=== PATIENT | male | born 1955 | race Caucasian/White ===

== ENCOUNTER → 2018-01-03 07:06 | Outpatient (CLI) | payer MEDICARE, SELFPAY ==
[2017-01-20 11:53] VITALS: BMI 27.1
[2018-01-03 08:45] LABS: AST(SGOT) 20 U/L (15-37); Alanine Aminotransfer ALT/SGPT 32 U/L (16-61); Albumin, Serum 3.9 g/dL (3.2-5.0); Alkaline Phosphatase 104 U/L (45-117); Bilirubin, Direct 0.07 mg/dL (0.00-0.30); Cholesterol 126 mg/dL (200); Globulin 3.7 g/dL (2.2-4.2); High Density Lipoprotein 39 mg/dL; Protein, Total 7.6 g/dL (6.4-8.2); Triglycerides 116 mg/dL; Very Low Density Lipoprotein 23 mg/dL (5-40)
== END ==
PROVIDERS: Family Provider Family Medicine; PCP Family Medicine; Visit Provider Internal Medicine Cardiovascular Disease
DX: E78.5 Hyperlipidemia, unspecified (principal); Z79.899 Other long term (current) drug therapy
CPT/HCPCS: 36415; 80061; 80076

== ENCOUNTER 2018-03-14 22:07 | Emergency (ER) | payer MEDICARE, SELFPAY ==
[2017-01-20 11:53] VITALS: BMI 27.1
[2018-03-14 22:08] VITALS: BP 141/80; PULSE 104; RESP 15; TEMP 36.9; BMI 27.1
[2018-03-14] MEDS: Lidocaine/Epi/Tetracaine 50 ML 1 APPLIC TOPICAL (22:42)
--- NOTE | 2018-03-14 22:43 | ED.DCSUM_ITS ---
- ER Visit Summary Date of Service: 03/14/18 Chief Complaint: Scrotal bleeding History of Present Illness: The patient is a 63 M status post recent right hand surgery for aneurysm. Currently is anticoagulated on Plavix and aspirin. He states that he has prominent veins on the scrotum and today he was washing and because 1 of them to bleed. Denies any other complaints. He denies any recent nosebleeds, bloody stools or gross hematuria. He denies any pain. Physical Examination: Well-appearing older male. Vital signs stable afebrile. He is in no distress. HEENT exam unremarkable. Neck nontender. Lungs clear to auscultation bilaterally. Heart regular rhythm no murmur. Abdomen soft nontender normal bowel sounds no peritoneal signs. He is moving all 4 extremities. His right hand is bandaged from the forearm all the way to the fingers. He has normal cap refill. He had recent hand surgery. The undersurface of his scrotum on the left has a small varicose vein that is oozing bright red blood. There is no pulsatile bleeding. Otherwise there is no bruising. No tenderness. No masses. Neurologic exam is awake alert with no focal deficits. Test Results: None Emergency Department Course and Treatment: We will apply LET to the area of his scrotum that is bleeding. Repeat exam he is doing well. The bleeding is resolving. He will be discharged home with a dressing in place. Treatment Plan: [] Disposition: Discharge Impression: Scrotal bleeding from a varicose vein Anticoagulated on Plavix and aspirin Status post right hand vascular surgery This note was generated with [employer] dictation software. It may contain incorrect words, spelling, and punctuation that were not noted in review of the chart prior to signing ED Disposition - Plan for ED Patient: Disposition: Home or Assisted Living Chief Complaint: Abscess Referrals: Nadir Abdalla MD [Primary Care Provider] - As Needed Additional Instructions: If the bleeding restarts or ice to the area and direct pressure. If you are unable to get it to stop return to the ER.
--- NOTE | 2018-03-14 23:04 | ED.DEP ---
ED Disposition - Plan for ED Patient: Disposition: Home or Assisted Living Chief Complaint: Abscess Referrals: Nadir Abdalla MD [Primary Care Provider] - As Needed Additional Instructions: If the bleeding restarts or ice to the area and direct pressure. If you are unable to get it to stop return to the ER.
[2018-03-14 23:49] VITALS: BP 119/68; PULSE 106; RESP 18; O2SAT 98
== END 2018-03-14 23:50 | disposition home or self-care (01) ==
PROVIDERS: Emergency Provider Emergency Medicine; Family Provider Family Medicine; PCP Family Medicine
DX: I86.1 Scrotal varices (principal); Z98.890 Other specified postprocedural states; Z79.82 Long term (current) use of aspirin; Z79.02 Long term (current) use of antithrombotics/antiplatelets; Z79.899 Other long term (current) drug therapy
CPT/HCPCS: 99283

== ENCOUNTER → 2019-01-07 11:01 | Outpatient (CLI) | payer MEDICARE, SELFPAY ==
[2017-01-20 11:53] VITALS: BMI 27.1
[2019-01-07 09:08] VITALS: BMI 30.8
--- NOTE | 2019-01-07 11:05 | RAD_ITS ---
STUDY: X-RAY CHEST REASON FOR EXAM: Male, 63 years old. Chronic chest pain TECHNIQUE: PA and lateral views of the chest. COMPARISON: 01/27/2017 FINDINGS: The lungs are clear and expanded. There is no demonstrated pleural abnormality. Normal size heart. Normal mediastinum and bonnie. Normal visualized pulmonary arteries. Normal visualized aortic arch and descending thoracic aorta. Normal visualized thoracic spine. Normal visualized ribs, clavicles, and shoulders. There is no demonstrated abnormality of the visualized soft tissue structures of the upper abdomen. RAD/Chest PA and Lateral IMPRESSION: Normal x-ray examination of the chest. Electronically Signed: Lee Rai DO at 11:53 EDT Tel , Service support ,
== END ==
PROVIDERS: Family Provider Family Medicine; PCP Family Medicine; Referring Provider Internal Medicine Cardiovascular Disease; Visit Provider Internal Medicine Cardiovascular Disease
DX: I20.9 Angina pectoris, unspecified (principal)
CPT/HCPCS: 71046

== ENCOUNTER → 2019-01-20 06:37 | Outpatient (CLI) | payer MEDICARE, SELFPAY ==
[2017-01-20 11:53] VITALS: BMI 27.1
[2019-01-07 09:08] VITALS: BMI 30.8
--- NOTE | 2019-01-20 06:41 | CDU_ITS ---
Reason For Study: STENOSIS Rt. Velocities/BP Lt. Velocities/BP Prox CCA 80/16 cm/sec. Prox CCA 98/21 cm/sec. Mid CCA 68/16 cm/sec. Mid CCA 109/21 cm/sec. Dist CCA 79/19 cm/sec. Dist CCA 96/18 cm/sec. Prox ICA 124/45 cm/sec. Prox ICA 102/32 cm/sec. Mid ICA 138/41 cm/sec. Mid ICA 179/49 cm/sec. Dist ICA 151/50 cm/sec. Dist ICA 72/23 cm/sec. Rt. ICA/CCA = 1.9. Lt. ICA/CCA = 1.6. Prox ECA 133/12 cm/sec. Prox ECA 138/18 cm/sec. Rt. Vert. 85/19 cm/sec. Lt. Vert. 67/23 cm/sec. Right Extracranial There is homogeneous, smooth atherosclerotic plaque noted in the right common carotid artery. There is homogeneous, irregular atherosclerotic plaque noted in the right internal carotid artery. There is heterogeneous, irregular atherosclerotic plaque noted in the right external carotid artery. Antegrade flow is noted in the right vertebral artery. There is heterogeneous, irregular atherosclerotic plaque noted in the left bulb. Left Extracranial There is homogeneous, smooth atherosclerotic plaque noted in the left common carotid artery. There is heterogeneous, irregular atherosclerotic plaque noted in the left internal carotid artery. There is heterogeneous, irregular atherosclerotic plaque noted in the left external carotid artery. Antegrade flow is noted in the left vertebral artery. There is heterogeneous, irregular atherosclerotic plaque noted in the left bulb. Procedure Carotid Duplex 25910. Exam performed in department. Interpretation Summary Irregular calcific plague right distal common carotid and proximal right internal carotid 50-69% stenosis right internal carotid, likely closer to the lower limits of this range. <50% stenosis right external carotid Irregular calcific plague at the proximal left internal carotid with 50-69% stenosis. <50% stenosis left external carotid Patent and antegrade vertebrals bilaterally Ordering Physician: Jd Nickerson Referring Physician: BO GRADY Performed By: Lynnette Judge, ULISSES, RVT
== END ==
PROVIDERS: Family Provider Family Medicine; PCP Family Medicine; Referring Provider Internal Medicine Cardiovascular Disease; Visit Provider Internal Medicine Cardiovascular Disease
DX: I65.23 Occlusion and stenosis of bilateral carotid arteries (principal)
CPT/HCPCS: 93880

== ENCOUNTER 2019-02-01 07:50 | Day surgery (SDC) | payer MEDICARE, SELFPAY ==
[2017-01-20 11:53] VITALS: BMI 27.1
[2019-01-07 09:08] VITALS: BMI 30.8
--- NOTE | 2019-01-07 10:38 | HP_ITS ---
HPI HPI History of Present Illness Surgical H&P: Yes Details: PRESTON BATES, is a 63 M who presents to the office today for preoperative evaluation for hand surgery. Is a gentleman with a history of hypertension, hyperlipidemia ,diabetes mellitus who had undergone a stress test which was indeterminate cardiac catheterization demonstrated normal left main coronary artery left anterior descending artery with mid 70% stenosis in the first diagonal 90% stenosis the circumflex artery had an ostial 60% stenosis along 70% stenosis in the ramus intermedius. He underwent two-vessel intervention with drug-eluting stent to the ramus intermedius as well as the left anterior descending artery the diagonal branch could not be cannulated. He has done well since then denying any chest pain at rest but has been having chest pain when he mows his lawn. He also denies any shortness breath or paroxysmal nocturnal dyspnea pedal edema he has had no neck arm or jaw discomfort suggest angina he has had some headaches occasionally. He also has occasional lower extremity aches when walking. He has been compliant with all his medications. He has had no neck arm or jaw discomfort suggest angina. His physical exam demonstrates clear lung romero regular rate and rhythm and no pedal edema. Intake Vital Signs 01/07/19 Height 5 ft 10 in 01/07/19 Weight: 215 lb 01/07/19 Body Mass Index (BMI) 30.8 01/07/19 Blood Pressure 132/77 H 01/07/19 Respiratory Rate 18 01/07/19 Pulse Rate 76 01/07/19 Pulse Ox 94 Intake Visit Reasons: 1 Y FU Allergies perfumes Allergy (Uncoded 01/07/19 09:08) unknown Medications Aspirin E.C. [Ecotrin] 81 mg PO DAILY@0800 09/13/13 [History Confirmed 01/07/19] Amitriptyline HCl 100 mg PO QHS 02/08/15 [History Confirmed 01/07/19] metformin 500 mg tablet 1,000 mg PO BIDCM tab 08/22/17 [History Confirmed 01/07/19] omega 9-xed-uao-fish oil 1,000 mg (120 mg-180 mg) capsule See Rx Instructions PO QDAY cap 01/06/18 [History Confirmed 01/07/19] clopidogrel 75 mg tablet 75 mg PO DAILY #30 tab 11/20/18 [Rx Confirmed 01/07/19] atorvastatin 20 mg tablet 20 mg PO QHS 30 Days #30 tab 01/07/19 [History Confirmed 01/07/19] fluticasone propionate 50 mcg/actuation nasal spray,suspension INTRANASAL 30 Days #16 g 01/07/19 [History Confirmed 01/07/19] gabapentin 400 mg capsule PO 90 Days #180 cap 01/07/19 [History Confirmed 01/07/19] nitroglycerin 0.4 mg sublingual tablet 0.4 mg SUBLINGUAL Q5M PRN #25 tab 01/07/19 [Rx Confirmed 01/07/19] omeprazole 20 mg capsule,delayed release PO 75 Days #75 cap 01/07/19 [History Confirmed 01/07/19] pioglitazone 15 mg tablet PO 90 Days #90 tab 01/07/19 [History Confirmed 01/07/19] ranitidine 150 mg tablet PO 90 Days #180 tab 01/07/19 [History Confirmed 01/07/19] PFSH Medical History Bilateral carotid artery stenosis (Chronic) Essential (primary) hypertension (Chronic) Hyperlipidemia (Chronic) Atherosclerotic heart disease of [place] coronary artery without angina pectoris (Chronic) BPH (benign prostatic hyperplasia) (Chronic) Carotid artery stenosis (Chronic) DDD (degenerative disc disease) (Chronic) Elevated LFTs (Chronic) Sciatica (Chronic) Type 2 diabetes mellitus (Chronic) Surgical History History of coronary artery stent placement (Resolved 01/20/17) History of hand surgery (Resolved) Hx of appendectomy (Resolved) Family History Sister CAD (coronary artery disease) CVA (cerebral vascular accident) Diabetes Myocardial infarction Hx of CABG Mother Cancer Lung CA Social History Smoking Status: Never smoker alcohol intake: never substance use type: does not use caffeine: Yes Type: coffee what type of physical activity do you participate in: none seatbelt use: always do you feel safe at home: Yes ROS Const Const: Negative for fatigue, weakness, headache(s), frequent falls, difficulty sleeping or excessive sweating Eyes Eyes: Negative for loss of peripheral vision, transient loss of vision, blurry vision, double vision or tunnel vision ENT ENT: Negative for headache(s), dizziness, Nosebleed/epistaxis or balance problems Cardio Chest Pain: Yes Character: sharp Onset: exercise Location: mid sternal Duration: minutes Exacerbation: activity Relieving: rest, other (belching) Recurrence: activity (mowing lawn, pulling garbage can) Palpitations: No Edema: None Muscle aches with walking: None Resp Respiratory: Negative for SOB with activity, SOB at rest, SOB orthopnea\SOB lying down, Cough or paroxysmal nocturnal dyspnea GI GI: Negative nausea, vomiting, heartburn or black,tarry stools : Negative for hematuria Musc Musc: Negative for muscle aches/ myalgia, muscle weakness, joint pain or balance problems Skin Skin: Negative non-healing lesions, rash or unusual bruising Neuro Neuro: Negative for dizziness, lightheadedness, near syncope, syncope, orthostatic symptoms, frequent falls, headache(s), weakness, blurry vision, double vision or lack of coordination Greg Hematologic/Lymphatic: Negative for easy bleeding or easy bruising Endo Endo: Negative for fatigue, excessive sweating or increased thirst/drinking Psych Psych: Negative for anxiety or depression Allergy Allergy/Immunology: Negative for hives, Negative for rash Cardiology Exam Const Appearance: cooperative, healthy appearing, no acute distress, well developed and well groomed Nutritional Appearance: average body habitus and well nourished Orientation: alert, awake and oriented x3 Head Head: normal to inspection, normocephalic and atraumatic Ears: hearing grossly normal bilaterally and external ears normal Nose: external nose normal, nares normal, nasal mucous membranes and turbinates normal, septum normal, no nasal discharge Face and Sinus: face symmetric Mouth: oral mucosae normal, tongue normal, oropharynx normal and moist mucous membranes Teeth and gingiva: dentition normal Throat: posterior oropharynx normal, tonsils normal and uvula midline Eyes General: appearance normal, both eyes and all related structures Eyelids: eyelids normal Conjunctivae: conjunctivae normal Pupils: PERRL, normal by confrontation and accommodation normal EOM: EOM intact bilaterally Neck Neck: normal visual inspection, trachea midline and no JVD JVD: +5 Carotids: normal carotid upstroke and bounding pulses Chest Chest inspection: normal inspection of the chest, symmetric chest movement and normal respiratory effort Auscultation: Bilateral: Clear to Auscultation Cardio Palpation: normal PMI Rate: regular rate Rhythm: regular rhythm Heart sounds: S1 normal, S2 normal and normal, physiologic split S2; negative rub, gallop or murmur GI GI: normal to inspection, soft, no hepatosplenomegaly and bowel sounds present Neuro General: alert, awake, oriented x3, gait normal, moves all extremities and no focal sensory deficit Skin Skin: no rashes or lesions noted Extremities Pulses: Normal: Right Femoral Pulse, Left Femoral Pulse, Right Dorsalis Pedis Pulse, Left Dorsalis Pedis Pulse, Right Posterior Tibial Pulse, Left Posterior Tibial Pulse, Right Radial Pulse, Left Radial Pulse Lower Extremity Edema: None: Bilateral Musculoskel Musculoskeletal: No joint tenderness Psych Psychological: normal affect Assessment & Plan 1. Angina pectoris I20.9 Plan He appears to have more recent onset of chest discomfort. He did have a stress test within the last 5 months at the [facility] which unfortunately did not demonstrate any significant ischemia. He however says that with his current discomfort which appears to be predictable with exertion he would want to find out what is going on. At this juncture I would suggest that we perform a repeat cardiac catheterization. The risk benefits alternatives have been explained to him he understands and agrees to proceed. Orders Orders: 12 Lead EKG performed by BMS Today Basic Metabolic Profile (BMP) Today CBC W/Diff, Automated Today Chest PA and Lateral Today 2. Essential (primary) hypertension I10 Plan He does have a history of hypertension which is well-controlled on the current medical therapy I would not recommend we make any major changes at this particular time. 3. Hyperlipidemia E78.5 Plan He does have a history of hyperlipidemia and remains on medium intensity statin. His most recent lipid profile demonstrated total cholesterol 126, LDL 64 and HDL 39. No changes will be made with respect to the above. 4. Bilateral carotid artery stenosis I65.23 Left > Right Plan He does have a history of carotid vascular disease. I would recommend that we repeat his carotid ultrasound to make sure that there is no worsening of the above. He did have a left 60 to 79% stenosis in the right to 20 to 50% stenosis noted. Thank you for allowing me to participate in the care of your patient. Please don't hesitate to call if any issues arise Plan Detail Other Orders Orders: Left Heart Cath/COR/LV Percut Today Z95.5 Other Medications Changed: From: nitroglycerin 0.4 mg sublingual Q5M PRN Chest Pain To: nitroglycerin take one tablet every 5-15 to not exceed 3 tablets 0.4 mg sublingual Q5M PRN 25 tabs 6RF Chest Pain Follow Up 6 Months (jhr) Coding Level of Care Code Off vis,est,level 4 Diagnoses Angina pectoris I20.9 Essential (primary) hypertension I10 Hyperlipidemia E78.5 Bilateral carotid artery stenosis I65.23 Coding Level of Care Code Off vis,est,level 4 Diagnoses Angina pectoris I20.9 Essential (primary) hypertension I10 Hyperlipidemia E78.5 Bilateral carotid artery stenosis I65.23 Supplemental Info Supplemental Information Labs LDL Cholesterol 64 mg/dL (0-130) 01/03/18 HDL Cholesterol 39 mg/dL (40-) L 01/03/18 Triglycerides 116 mg/dL (-199) 01/03/18 VLDL Cholesterol 23 mg/dL (5-40) 01/03/18 Diagnostics Electrocardiogram 01/06/18 Chest X-Ray 01/27/17 01/07/19 1038 <Electronically signed by Jd Nickerson MD> Date Jd Nickerson MD
[2019-01-07 11:43] LABS: Absolute Lymphocyte Count 1.96 X10^3/ul (0.83-4.51); Absolute Neutrophil Count 3.6 X10^3/uL (2.0-7.7); Basophil# 0.04 X10^3/uL; Basophil% 0.6 % (0-1); Eosinophil# 0.17 X10^3/uL; Eosinophils% 2.7 % (0-5); Hematocrit 38.4 % (40-54); Hemoglobin 12.8 g/dl (13.0-16.5); Lymphocyte # 1.96 X10^3/ul (4.0); Lymphocyte % 31.4 % (19-41); Mean Corp Hgb Conc 33.3 g/gl (32-36); Mean Corpuscular Hgb 27.7 pg (27.0-32.0); Mean Corpuscular Volume 83.1 fL (80-94); Mean Platelet Vol. 9.4 fl (6.2-12.0); Monocyte# 0.43 X10^3/uL; Monocyte% 6.9 % (0-10); Neutrophil # 3.64 X10^3/uL (2.7-7.7); Neutrophil % 58.2 % (47-70); Platelet Count 221 K/mm3 (150-450); RBC Distribution Width CV 13.6 % (11.6-14.6); Red Blood Count 4.62 M/mm3 (4.6-6.2); White Blood Count 6.3 K/mm3 (4.4-11.0)
[2019-01-07 11:46] LABS: POSITIVE COUNT NO; POSITIVE DIFFERENTIAL NO; POSITIVE MORPHOLOGY NO
[2019-01-07 12:09] LABS: Anion Gap 7 (5-15); BUN 17 mg/dL (7-18); BUN/Creat Ratio 16.5 RATIO (10-20); Calcium,Total 8.5 mg/dL (8.5-10.1); Chloride 104 mmol/L (98-107); Creatinine, Serum 1.03 mg/dL (0.70-1.30); EST Glomerular Filtration Rate 77 mL/min (>60); Est Glom Filt Rate - Afr Amer 93 mL/min (>60); Glucose 191 mg/dL (74-106); Potassium 4.2 mmol/L (3.5-5.1); Sodium Level 135 mmol/L (136-145)
[2019-01-29 08:32] VITALS: BMI 30.8
--- NOTE | 2019-02-01 10:50 | CL.D_ITS ---
Patient Name: PRESTON BATES Study Date: 02/01/2019 Performing: Jd Nickerson MD Ht: 70.07 inches 178 cm : 1955 Wt: 216.05 lbs 98 kg Age: 64 Gender: male BSA: 2.16 PROCEDURE(S) PERFORMED UK89-TOM/COR/LV CLINICAL PROFILE AND INDICATIONS Indications: Suspected CAD Heart Failure: None Stress/Imaging Date: 01/10/2019Stress Test with SPECT MPI: Negative CAD Presentations: Stable angina. CONCLUSIONS [place] coronary artery disease involving the proximal ostial circumflex. Previously stented LAD and ramus intermedius appeared to be patent. Mild disease of the right coronary artery. RECOMMENDATIONS Would recommend maximal medical therapy. If patient fails then will consider high risk angioplasty t o the ostial circumflex artery. Above discussed with interventionalist. DESCRIPTION OF PROCEDURE The patient arrived to the procedure lab. The risks and benefits of the procedure as well as a full d escription of our services here and current unavailability of surgical backup were fully explained to the patient and/or their significant other prior to the catheterization. The Timeout was completed, verifying the correct patient and procedure. The patient's procedural site was prepped and draped in the usual fashion. Local anesthetic was given subcutaneously to right groin region with Lidocaine 2%. Using a modified Seldinger technique, arterial access was obtained via the right femoral artery, a 5 Fr sheath was inserted. Left Coronary Artery selective angiography was performed in multiple views u sing a 5 Fr. JL4 catheter. Right Coronary Artery selective angiography was then performed in multiple views using a 5 Fr. 3DRC (Danny) catheter. Left Ventriculography was performed in SUAREZ projection using a 5 Fr. Pigtail catheter. LV to AO pullback pressures were then recorded.Contrast was injected through the sheath and the Right Iliac and Femoral artery were assessed for possible dea sure device.The arterial sheath was pulled and a Mynx closure device was deployed for hemostasis CORONARY ANGIOGRAPHY DOMINANCE: Right Dominant LEFT HEART ASSESSMENT Left Ventricular Ejection Fraction: by LV Gram 70 % Normal LV wall motion Normal Left Ventricular systolic function LEFT MAIN: Angiographically normal LEFT ANTERIOR DESCENDING ARTERY: MID LAD: Previously placed stent is patent DIAGONAL 1: Proximal - is occluded CIRCUMFLEX ARTERY: OSTIAL CIRC: 60 % Stenosis RAMUS: Previously placed stent is patent RIGHT CORONARY ARTERY: PROX RCA: 40 % Stenosis MID RCA: 40 % Stenosis DISTAL RCA: 40 % Stenosis COMPLICATIONS No Complications PROCEDURE MEDICATIONS Versed 1 mg IV Oxygen: 2 L/min via nasal cannula SUMMARY OF HEMODYNAMIC DATA Time AIR REST ECG 08:45:48 AO 148/79 (111) SA 09:37:36 LV 137/-3, 4 09:44:20 LV 147/-4, -2 09:44:33 LV 158/-23, 0 09:45:35 LV 157/-23, 0 09:45:43 LVp 159/-18, 0 09:45:50 AOp 157/71 (107) 09:45:55 Signed By Jd Nickerson MD On 02/01/2019 10:49:28 Jd Nickerson MD
== END 2019-02-01 12:50 | disposition home or self-care (01) ==
LOC: CLSP 07:52
PROVIDERS: Family Provider Family Medicine; PCP Family Medicine; Referring Provider Internal Medicine Cardiovascular Disease; Visit Provider Internal Medicine Cardiovascular Disease
DX: I25.119 Atherosclerotic heart disease of native coronary artery with unspecified angina pectoris (principal); I65.23 Occlusion and stenosis of bilateral carotid arteries; E11.9 Type 2 diabetes mellitus without complications; I10 Essential (primary) hypertension; E78.5 Hyperlipidemia, unspecified; N40.0 Benign prostatic hyperplasia without lower urinary tract symptoms; Z79.82 Long term (current) use of aspirin; Z79.84 Long term (current) use of oral hypoglycemic drugs; Z79.02 Long term (current) use of antithrombotics/antiplatelets; Z79.899 Other long term (current) drug therapy
CPT/HCPCS: 36415; 80048; 85025; 93458; 99152; 99153; C1760; J7040; C1769; Q9967

== ENCOUNTER → 2019-03-01 10:47 | Outpatient (CLI) | payer MEDICARE, SELFPAY ==
[2017-01-20 11:53] VITALS: BMI 27.1
[2019-02-26 09:59] VITALS: BMI 30.7
[2019-03-01 11:26] LABS: Erythrocyte Sedimentation Rate 27 mm/hr (0-20)
== END ==
PROVIDERS: Family Provider Family Medicine; PCP Family Medicine; Referring Provider Psychiatry & Neurology Neurology; Visit Provider Psychiatry & Neurology Neurology
DX: R51 Headache (principal)
CPT/HCPCS: 36415; 85652

== ENCOUNTER → 2019-03-03 18:02 | Outpatient (CLI) | payer MEDICARE, SELFPAY ==
[2017-01-20 11:53] VITALS: BMI 27.1
[2019-02-26 09:59] VITALS: BMI 30.7
--- NOTE | 2019-03-03 15:10 | RAD_ITS ---
STUDY: X-RAY - CERVICAL SPINE REASON FOR EXAM: Male, 64 years old. Headache. TECHNIQUE: 3 view(s) of the cervical spine were obtained. COMPARISON: None FINDINGS: Normal anterior atlantoaxial articulation. Normal odontoid process. Normal cervical lordosis. There is multi-level endplate spondylosis. There is multi-level degenerative disc disease with multilevel disc space narrowing. There is no evidence of acute fracture or loss of vertebral axial height. There is maintenance of normal alignment. The soft tissue structures are unremarkable. RAD/Cerv Spine 2 or 3 Views IMPRESSION: Degenerative changes of the cervical spine. Electronically Signed: Thuan Harrington DO at 22:34 EDT Tel [phone], Service support ,
== END ==
PROVIDERS: Family Provider Family Medicine; PCP Family Medicine; Referring Provider Anesthesiology Pain Medicine; Visit Provider Anesthesiology Pain Medicine
DX: M54.2 Cervicalgia (principal)
CPT/HCPCS: 72040

== ENCOUNTER → 2019-03-10 10:04 | Outpatient (CLI) | payer MEDICARE, SELFPAY ==
[2017-01-20 11:53] VITALS: BMI 27.1
[2019-02-26 09:59] VITALS: BMI 30.7
--- NOTE | 2019-03-10 10:20 | MRI_ITS ---
STUDY: MRI BRAIN WITHOUT CONTRAST REASON FOR EXAM: Male, 64 years old. HANNAH'S INCREASING FREQ AND SEVERITY TECHNIQUE: Standardized multiplanar fat and water weighted pulse sequences were obtained. COMPARISON: None. FINDINGS: Normal size of the ventricles and extra-axial spaces for the patient's age. Normal white matter tracts of the supratentorial brain. Normal bilateral basal ganglia. Normal thalami. There is no extra-axial fluid accumulation. Normal flow voids within the major intracranial circulation suggesting patency by spin echo criteria. Normal sella turcica, pituitary gland, infundibular stalk, optic chiasm and hypothalamus. Normal tectal plate and pineal gland. Normal midbrain, gerson and medulla. Normal cerebellum. Normal basal cisterns. Normal bilateral temporal bones. Normal bilateral internal auditory canals. MRI/Brain without Contrast IMPRESSION: Unremarkable unenhanced MRI of the brain. Electronically Signed: Dominique Lockett MD at 8:05 EDT Tel , Service support ,
== END ==
PROVIDERS: Family Provider Family Medicine; PCP Family Medicine; Referring Provider Psychiatry & Neurology Neurology; Visit Provider Psychiatry & Neurology Neurology
DX: R51 Headache (principal)
CPT/HCPCS: 70551

== ENCOUNTER → 2019-07-19 05:16 | Outpatient (CLI) | payer MEDICARE, SELFPAY ==
[2017-01-20 11:53] VITALS: BMI 27.1
[2019-06-29 09:39] VITALS: BMI 29.4
[2019-07-06 07:58] LABS: AST(SGOT) 40 U/L (15-37); Alanine Aminotransfer ALT/SGPT 35 U/L (16-61); Alkaline Phosphatase 106 U/L (45-117); Bilirubin, Direct 0.11 mg/dL (0.00-0.30); Cholesterol 150 mg/dL (200); Globulin 3.9 g/dL (2.2-4.2); High Density Lipoprotein 56 mg/dL; Protein, Total 7.9 g/dL (6.4-8.2); Triglycerides 88 mg/dL; Very Low Density Lipoprotein 18 mg/dL (5-40)
--- NOTE | 2019-07-19 20:07 | STRESSREP ---
Stress Test Report Exercise myocardial perfusion stress test. 64-year-old man with a history of coronary artery disease status post angioplasty and stenting of the left anterior descending artery, right coronary artery, with residual disease of 60% noted in the ostial circumflex artery. Stress protocol: Resting EKG demonstrates normal sinus rhythm with a rate of 83 bpm normal intervals are noted T wave inversions noted in lead III. Resting blood pressures 158/80 mmHg. The patient exercised according to regular Aniceto protocol for total duration of 6 minutes the maximum heart rate attained was 127 bpm which was 82% of maximum predicted heart rate the maximum workload was 7 metabolic equivalents. At rest nonspecific ST-T wave changes were noted at peak exercise T wave inversions in lead III persisted. There was less than [address] depression noted in the inferior lateral leads not diagnostic of ischemia. The resting blood pressures 158/80 with a peak blood pressure 168/58 mmHg. The test was terminated due to left hip pain. The patient experienced mild chest discomfort. This dissipated on termination. Myocardial perfusion protocol. 15.0 mCi of technetium 99m sestamibi was injected at rest. The patient exercised according to regular Aniceto protocol for 6 minutes. At peak exercise 45.0 mCi of technetium 99m sestamibi was injected stress images were obtained stress and rest images are reconstructed in comparing the short axis vertical and horizontal long axis. Gated images were also obtained per Perfusion SPECT analysis: Review of the stress images demonstrate normal uptake of tracer noted in all areas of the myocardium. No areas of reversibility are noted suggest ischemia no previous infarct is noted. Gated SPECT analysis: The gated ejection fraction is noted to be 72%. Conclusion: Normal exercise myocardial perfusion stress test at a moderate workload. No obvious ischemia noted. Minimal chest discomfort noted of unknown significance. Resting hypertension.
== END ==
PROVIDERS: Family Provider Family Medicine; PCP Family Medicine; Referring Provider Internal Medicine Cardiovascular Disease; Visit Provider Internal Medicine Cardiovascular Disease
DX: R07.9 Chest pain, unspecified (principal); I25.119 Atherosclerotic heart disease of native coronary artery with unspecified angina pectoris; Z95.5 Presence of coronary angioplasty implant and graft
CPT/HCPCS: 36415; 78452; 80061; 80076; 93017; A9500; A4216

== ENCOUNTER 2019-10-31 08:52 | Emergency (ER) | payer MEDICARE, SELFPAY ==
[2017-01-20 11:53] VITALS: BMI 27.1
[2019-06-29 09:39] VITALS: BMI 29.4
[2019-10-31 08:54] VITALS: BP 149/77; PULSE 114; RESP 19; TEMP 36.6; O2SAT 96; BMI 27.0
--- NOTE | 2019-10-31 09:00 | ED.VIS.GEN ---
History of Present Illness Chief Complaint: Lower Extremity Injury Detail of Chief Complaint: Numbness between the first and second metatarsal head Informant: Patient Onset: Yesterday Context: Sudden Onset Timing: Continuous Quality: Numbness Location: Previously documented Current Severity: Mild Maximum Severity: Moderate Worsened by: Possibly walking Relieved by: Nothing Associated Symptoms: Onset after blunt trauma Narrative: Patient is an elderly male with history of diabetes. Denies history of diabetic neuropathy. He had blunt trauma in the proximity of the metatarsal head of the first metatarsal bone. He has had numbness symptoms. He denies pain. He denies symptoms of claudication. He has no other complaints. Prior similar symptoms: No Recent Illness/Hospitalization: No - Past Medical History (1) Atherosclerotic heart disease [place] coronary artery w/angina pectoris Status: Acute Comment: PCI-RODDY-Mid LAD w/ 2.5 x 16 mm Synergy Stent and RODDY-Mid Ramus w/ 2.25 x 16 mm Synergy MR 01/20/2017 (2) Bilateral carotid artery stenosis Status: Chronic (3) Essential (primary) hypertension Status: Chronic (4) Hyperlipidemia Status: Chronic Past Medical History - Allergies and Home Meds Allergies/Adverse Reactions: Allergies perfumes Allergy (Uncoded 10/31/19 08:55) unknown Primary Care Physician: Nadir Abdalla MD [Primary Care Provider] - Prior records reviewed: Yes Surgical History: noncontributory Lives: With Family Smoking Status: Never smoker Alcohol: None Review of Systems General: Denies: Chills, Fever, Malaise, Subjective Musculoskeletal: Denies: Myalgias, Arthralgias, Neck pain, Back pain, Swelling, Extremity Pain Skin: Denies: Rash, Abrasions, Wounds Neurological: Reports: Numbness. Denies: Headache, Weakness Physical Exam Vital Signs/Narrative: Vital Signs Temp Pulse Resp BP Pulse Ox 10/31/19 08:54 97.9 F 114 H 19 H 149/77 H 96 Inital Vital Signs reviewed: Yes General: Well nourished, Well developed, No Acute Distress Eyes: Perrl, EOMI. Negative for: Pale conjunctiva, Scleral icterus Cardiovascular: Regular rate, Regular rhythm Respiratory: No distress Extremities: Nontender, No edema, - - P.m. PT pulse are palpable. Capillary refill is normal. There is no subungual hematoma. There is no bruising. There is no soft tissue swelling noted.. Negative for: Tenderness, Edema, Calf Tenderness Skin: Normal color, No rash, No Trauma. Negative for: Cyanosis, Diaphoresis, Jaundice Neurological: Alert, Oriented x3, Cranial nerves II-XII grossly intact, Normal Strength, Normal Sensation Psychological: Normal affect Diagnostic/Tx/Re-eval - Medical Decision Making She presents with localized numbness after blunt trauma. Since there is no evidence of trauma and no tenderness to palpation of the phalanges of metatarsal bones patient was informed that he has neuropraxia due to blunt trauma. He was informed that this may persist for 4 to 6 weeks. ED Disposition - Plan for ED Patient: Disposition: Home or Assisted Living Diagnosis: Neurapraxia Instructions: Paraesthesias Referrals: Nadir Abdalla MD [Primary Care Provider] - As Needed
== END 2019-10-31 09:38 | disposition home or self-care (01) ==
LOC: ED 09:27
PROVIDERS: Emergency Provider Emergency Medicine; PCP Family Medicine
DX: S94.91XA Injury of unspecified nerve at ankle and foot level, right leg, initial encounter (principal); X58.XXXA Exposure to other specified factors, initial encounter; Y93.9 Activity, unspecified; Y92.9 Unspecified place or not applicable; Y99.9 Unspecified external cause status; I25.10 Atherosclerotic heart disease of native coronary artery without angina pectoris; E11.9 Type 2 diabetes mellitus without complications; I65.23 Occlusion and stenosis of bilateral carotid arteries; I10 Essential (primary) hypertension; E78.5 Hyperlipidemia, unspecified; Z95.5 Presence of coronary angioplasty implant and graft
CPT/HCPCS: 99282

== ENCOUNTER → 2020-01-27 07:08 | Outpatient (CLI) | payer MEDICARE, SELFPAY ==
[2017-01-20 11:53] VITALS: BMI 27.1
[2019-12-28 09:46] VITALS: BMI 30.5
--- NOTE | 2020-01-27 07:10 | CDU_ITS ---
Reason For Study: vertigo Rt. Velocities/BP Lt. Velocities/BP Prox CCA 104.7/21.3 cm/sec. Prox CCA 97.4/22.5 cm/sec. Mid CCA 89.1/22.6 cm/sec. Mid CCA 104.8/29.8 cm/sec. Dist CCA 81.2/23.9 cm/sec. Dist CCA 117.0/31.1 cm/sec. Prox ICA 103.4/38.2 cm/sec. Prox ICA 91.3/29.8 cm/sec. Mid ICA 139.4/55.3 cm/sec. Mid ICA 172.20/62.6 cm/sec. Dist ICA 141.2/57.2 cm/sec. Dist ICA 224.6/59.9 cm/sec. Rt. ICA/CCA = 1.6. Lt. ICA/CCA = 2.1. Prox ECA 107.3/13.4 cm/sec. Prox ECA 124.7/18.8 cm/sec. Rt. Vert. 41.0/9.1 cm/sec. Lt. Vert. 68.4/20.1 cm/sec. Right Extracranial There is homogeneous, smooth atherosclerotic plaque noted in the right common carotid artery. There is heterogeneous, irregular atherosclerotic plaque noted in the right internal carotid artery. There is heterogeneous, irregular atherosclerotic plaque noted in the right external carotid artery. Antegrade flow is noted in the right vertebral artery. There is heterogeneous, irregular atherosclerotic plaque noted in the right bulb. Left Extracranial There is homogeneous, smooth atherosclerotic plaque noted in the left common carotid artery. There is heterogeneous, irregular atherosclerotic plaque noted in the left internal carotid artery. There is heterogeneous, irregular atherosclerotic plaque noted in the left external carotid artery. Antegrade flow is noted in the left vertebral artery. There is heterogeneous, irregular atherosclerotic plaque noted in the left bulb. Procedure Carotid Duplex [id number]. The exam was diagnostic. Exam performed in department. Interpretation Summary Mild calcific plaque with shadowing distal right common carotid and proximal internal and external carotids 50-69% stenosis right internal carotid <50% stenosis right external carotid Calcific plaque with shadowing proximal left internal and external carotid arteries Findings approach 70% stenosis left internal carotid; tortuosity is noted which may affect this interpretation <50% stenosis left external carotid Patent, antegrade vertebrals bilaterally Slight change on left from the previous exam of 01/20/19 Ordering Physician: Ramez Mancia Performed By: Aries Mathew RVT
== END ==
PROVIDERS: PCP Family Medicine; Referring Provider Nurse Practitioner Family; Visit Provider Nurse Practitioner Family
DX: I65.23 Occlusion and stenosis of bilateral carotid arteries (principal)
CPT/HCPCS: 93880

== ENCOUNTER 2020-03-04 11:16 | Emergency (ER) | payer MEDICARE, SELFPAY ==
[2017-01-20 11:53] VITALS: BMI 27.1
[2019-12-28 09:46] VITALS: BMI 30.5
[2020-03-04 11:17] VITALS: BP 132/81; PULSE 100; RESP 18; TEMP 37; O2SAT 97; BMI 28.1
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
[2020-03-04 12:42] LABS: Anion Gap 3 (5-15); BUN 21 mg/dL (7-18); BUN/Creat Ratio 24.6 RATIO (10-20); Calcium,Total 8.7 mg/dL (8.5-10.1); Chloride 109 mmol/L (98-107); Creatinine, Serum 0.86 mg/dL (0.70-1.30); EST Glomerular Filtration Rate 95 mL/min (>60); Est Glom Filt Rate - Afr Amer 115 mL/min (>60); Estimated Creatinine Clearance 86.06 ml/min; Glucose 78 mg/dL (74-106); Sodium Level 139 mmol/L (136-145)
--- NOTE | 2020-03-04 13:26 | EKG12_ITS ---
Test Reason : CP Blood Pressure : / mmHG Vent. Rate : 083 BPM Atrial Rate : 083 BPM P-R Int : 166 ms QRS Dur : 090 ms QT Int : 396 ms P-R-T Axes : 037 012 008 degrees QTc Int : 465 ms Normal sinus rhythm Normal ECG Confirmed by EMMA GALVIN ([id number]), editor magazine CODY YOON ([id number]) on 03/06/2020 2:06:03 PM Referred By: AP Confirmed By:EMMA GALVIN
[2020-03-04 13:29] VITALS: BP 152/69; PULSE 94; RESP 18; O2SAT 98
[2020-03-04 14:03] VITALS: BP 137/62; PULSE 84; RESP 16; O2SAT 98
== END 2020-03-04 14:07 | disposition home or self-care (01) ==
PROVIDERS: Emergency Provider Physician Assistant Medical; PCP Family Medicine
DX: S16.1XXA Strain of muscle, fascia and tendon at neck level, initial encounter (principal); R07.9 Chest pain, unspecified; G89.29 Other chronic pain; V43.92XA Unspecified car occupant injured in collision with other type car in traffic accident, initial encounter; Y93.9 Activity, unspecified; Y92.410 Unspecified street and highway as the place of occurrence of the external cause; Y99.9 Unspecified external cause status; E11.9 Type 2 diabetes mellitus without complications; I10 Essential (primary) hypertension; I25.10 Atherosclerotic heart disease of native coronary artery without angina pectoris; E78.5 Hyperlipidemia, unspecified; Z79.84 Long term (current) use of oral hypoglycemic drugs; Z79.02 Long term (current) use of antithrombotics/antiplatelets; Z79.82 Long term (current) use of aspirin; Z79.899 Other long term (current) drug therapy; Z87.891 Personal history of nicotine dependence
CPT/HCPCS: 70450; 70496; 70498; 72125; 80048; 84484; 93005; 99284; Q9967; A4216

== ENCOUNTER → 2020-04-25 14:57 | Outpatient (CLI) | payer MEDICARE, SELFPAY ==
[2017-01-20 11:53] VITALS: BMI 27.1
[2020-04-25 13:43] VITALS: BMI 28.3
[2020-04-25 16:48] LABS: Absolute Lymphocyte Count 1.53 X10^3/uL (0.83-4.51); Absolute Neutrophil Count 3.7 X10^3/uL (2.0-7.7); Basophil# 0.03 X10^3/uL; Basophil% 0.5 % (0-1); Eosinophil# 0.14 X10^3/uL; Eosinophils% 2.3 % (0-5); Hematocrit 37.1 % (40-54); Hemoglobin 11.7 g/dL (13.0-16.5); Lymphocyte # 1.53 X10^3/ul (4.0); Lymphocyte % 25.4 % (19-41); Mean Corp Hgb Conc 31.5 g/dL (32-36); Mean Corpuscular Hgb 28.1 pg (27.0-32.0); Mean Corpuscular Volume 89.2 fL (80-94); Mean Platelet Vol. 10.3 fl (6.2-12.0); Monocyte# 0.59 X10^3/uL; Monocyte% 9.8 % (0-10); NRBC Flagged by Analyzer 0 % (0-5); Neutrophil # 3.71 X10^3/uL (2.7-7.7); Neutrophil % 61.7 % (47-70); Platelet Count 260 K/mm3 (150-450); RBC Distribution Width CV 13.9 % (11.6-14.6); Red Blood Count 4.16 M/mm3 (4.6-6.2)
[2020-04-25 17:47] LABS: ALB/GLOB Ratio 1.1 RATIO (0.9-2.4); AST(SGOT) 24 U/L (15-37); Alanine Aminotransfer ALT/SGPT 28 U/L (16-61); Albumin, Serum 4.1 g/dL (3.2-5.0); Alkaline Phosphatase 96 U/L (45-117); Anion Gap 5 (5-15); BUN 23 mg/dL (7-18); BUN/Creat Ratio 24.9 RATIO (10-20); Calcium,Total 8.7 mg/dL (8.5-10.1); Chloride 104 mmol/L (98-107); Cholesterol 134 mg/dL (200); Creatinine, Serum 0.92 mg/dL (0.70-1.30); EST Glomerular Filtration Rate 87 mL/min (>60); Est Glom Filt Rate - Afr Amer 105 mL/min (>60); Globulin 3.8 g/dL (2.2-4.2); Glucose 81 mg/dL (74-106); High Density Lipoprotein 48 mg/dL; Potassium 3.9 mmol/L (3.5-5.1); Protein, Total 7.9 g/dL (6.4-8.2); Sodium Level 137 mmol/L (136-145); Triglycerides 187 mg/dL; Very Low Density Lipoprotein 37 mg/dL (5-40)
== END ==
PROVIDERS: PCP Family Medicine; Referring Provider Physician Assistant Medical; Visit Provider Physician Assistant Medical
DX: I25.119 Atherosclerotic heart disease of native coronary artery with unspecified angina pectoris (principal)
CPT/HCPCS: 36415; 80053; 80061; 85025

== ENCOUNTER 2020-05-10 06:31 | Day surgery (SDC) | payer MEDICARE, SELFPAY ==
[2017-01-20 11:53] VITALS: BMI 27.1
[2020-04-25 13:43] VITALS: BMI 28.3
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
[2020-05-05 12:42] LABS: Prothrombin Time (Protime)PT. 12.8 SECONDS (11.7-14.9)
[2020-05-09 07:36] VITALS: BMI 28.3
[2020-05-10] VITALS (16 sets, daily range): BP systolic 106–155; BP diastolic 52–83; PULSE 56–65; RESP 16–18; TEMP 36.5–36.6; O2SAT 93–97; BMI 27.6; BMI 27.7
--- NOTE | 2020-05-10 08:25 | CL.D_ITS ---
Patient Name: PRESTNO BATES Study Date: 05/10/2020 Performing: Jd Nickerson MD Ht: 70.07 inches 178 cm : 1955 Wt: 196.21 lbs 89 kg Age: 65 Gender: male BSA: 2.07 PROCEDURE(S) PERFORMED [id number]/LV CLINICAL PROFILE AND INDICATIONS Indications: Worsening Angina Heart Failure: None Stress/Imaging Stress/Image Study Performed: No CAD Presentations: Unstable angina. CONCLUSIONS Previously placed stent in the LAD and ramus intermedius are both patent. Ostial proximal circumflex artery disease in a nondominant vessel. Mild disease in the right coronary artery. RECOMMENDATIONS In view of the fact that the patient has had recurrent chest discomfort despite maximal medical thera py, we will try and figure out whether he would benefit from PCI of the ostial circumflex artery. DESCRIPTION OF PROCEDURE The patient arrived to the procedure lab. The risks and benefits of the procedure as well as a full d escription of our services here and current unavailability of surgical backup were fully explained to the patient and/or their significant other prior to the catheterization. The Timeout was completed, verifying the correct patient and procedure. The patient's procedural site was prepped and draped in the usual fashion. Local anesthetic was given subcutaneously to right radial region with Lidocaine 2% . Using a modified Seldinger technique, arterial access was obtained via the right radial artery, a 6 Fr sheath was inserted. Left Coronary Artery selective angiography was performed in multiple views u sing a 5 Fr. 4.0 [place] catheter. Right Coronary Artery selective angiography was then performed in mu ltiple views using a 5 Fr. 4.0 [place] catheter. Left Ventriculography was performed in SUAREZ projection using a 5 Fr. Pigtail catheter. LV to AO pullback pressures were then recorded. CORONARY ANGIOGRAPHY DOMINANCE: Right Dominant LEFT HEART ASSESSMENT Left Ventricular Ejection Fraction: by LV Gram 60 % Normal LV wall motion Normal Left Ventricular systolic function LEFT MAIN: No significant disease noted LEFT ANTERIOR DESCENDING ARTERY: Mild luminal irregularities less than 30%, Previously placed stent i s patent CIRCUMFLEX ARTERY: OSTIAL CIRC: 80 % Stenosis RAMUS: Previously placed stent is patent RIGHT CORONARY ARTERY: Mild luminal irregularities less than 30% COMPLICATIONS PROCEDURE MEDICATIONS Versed 1 mg IV Fentanyl 50 mcg IV Versed 1 mg IV Oxygen: 2 L/min via nasal cannula SUMMARY OF HEMODYNAMIC DATA Time AIR REST ECG 06:55:41 AO 125/62 (88) SA 08:05:07 LV 99/-2, 3 08:10:42 LV 106/-1, 1 08:10:49 LV 108/2, 7 08:11:19 LV 107/1, 4 08:11:26 LVp 110/4, 8 08:11:33 AOp 112/50 (77) 08:11:38 Signed By Jd Nickerson MD On 05/10/2020 08:25:03 Jd Nickerson MD
--- NOTE | 2020-05-10 09:30 | EKG12_ITS ---
Test Reason : Blood Pressure : / mmHG Vent. Rate : 055 BPM Atrial Rate : 055 BPM P-R Int : 130 ms QRS Dur : 086 ms QT Int : 426 ms P-R-T Axes : 020 022 002 degrees QTc Int : 407 ms Sinus bradycardia Otherwise normal ECG When compared with ECG of 04-MAR-2020 13:46, Vent. rate has decreased BY 28 BPM QT has shortened Confirmed by CHANG POTTER, MERI ([id number]), associate editor LEONEL HELTON ([id number]) on 05/15/2020 1:29:43 PM Referred By: Jd Nickerson Confirmed By:KARI DOWNING MD
--- NOTE | 2020-05-10 09:41 | CRPHASE1_ITS ---
Patient Communication PHII Cardiac Rehab Discussed with Patient:: Yes Guide to Cardiac Rehab Given to Patient:: Yes Cardiac Rehab Facility Choice List Given to Patient:: Yes Choice Program [facility] CR PHII:: Communication Given to CR, Refer to [facility] Barrel Plater:: Sina Cabrales Phase II Cardiac Rehab:: Yes - to take place after discharge Sessions:: 36 sessions - 3 days/wk, 12 weeks Choice Letter Given to Patient:: No Guide to Cardiac Rehab Given by ICU Staff Prior to Discharge: No Risk Factors/Lifestyle Family History: Family History (Last Reviewed 04/25/20 @ 14:13 by Yolanda Dean PA, PA) Sister CAD (coronary artery disease) CVA (cerebral vascular accident) Diabetes Myocardial infarction Hx of CABG Mother Cancer Cardiac Rehabilitation Info Cardiac Rehabilitation Program Information: Cardiac Rehabilitation is important for patients like you who are recovering from a heart problem. Cardiac rehabilitation programs are recognized as integral to the continued care of the patient with coronary heart disease. The cardiac rehabilitation program is designed to optimize a patient's physical, psychological, and social functioning. Health medical care manager work in cardiac rehabilitation programs and assist you with getting the treatments you need to get stronger and healthier - like exercise, healthy eating habits, and medications. Cardiac rehabilitation has been show to help people with heart problems live longer and have better life enjoyment than people who do not go to cardiac rehabilitation. Please contact the Cardiac Rehabilitation Program at [facility] at in two weeks if you have not heard from them.
--- NOTE | 2020-05-10 09:56 | CRPH1.INSTRU ---
General Education CAD and cardiac anatomy and function:: Not instructed Explanation of diagnoses and procedures:: Not instructed Emergency procedures and activation of EMS: Patient communicates acknowledgment - CR BOOKLET EXPLAINED AND GIVEN TO PT Compliance of all prescribed medications: Not instructed Smoking Nicotine/Smoking Response Code:: Not instructed Dyslipidemia Dyslipidemia Response Code:: Not instructed Overweight/Obesity Patient Overweight/Obesity Risk Factors Are:: Obesity - > or = 30 Overweight/Obesity:: Not instructed Hypertension Hypertension:: Needs reinforcement Heart Disease Patient Heart Disease Risk Factors Are:: Previous cardiac event Heart Disease Response Code:: Needs reinforcement Diabetes Patient Diabetes Risk Factors Are:: Elevated blood sugars Diabetes:: Needs reinforcement Metabolic Syndrome Metabolic Syndrome Response Code:: Not instructed Sedentary Sedentary Response Code:: Not instructed Stress Stress Response Code:: Not instructed
[2020-05-10] MEDS: 0.9% Normal Saline 1,000 ML 60 ML IV (10:10)
[2020-05-10] MEDS: Ranolazine 500 MG Tablet PO ×2 (10:13→21:31)
[2020-05-10] MEDS: Pantoprazole Sodium 20 MG Tablet 40 MG PO (10:13)
[2020-05-10] MEDS: Omega-3 Acid Ethyl Esters 1 GM Capsule PO (10:13)
[2020-05-10] MEDS: Sertraline 100 MG Tablet PO (10:13)
[2020-05-10] MEDS: Acetaminophen 325 MG Tablet 650 MG PO ×2 (11:01→16:26)
[2020-05-10] MEDS: Glimepiride 4 MG Tablet PO (11:01)
--- NOTE | 2020-05-10 12:57 | CL.I_ITS ---
Patient Name: PRESTON BATES Study Date: 05/10/2020 Performing: Blanka Cabrales MD Ht: 70 inches 178 cm : 1955 Wt: 196.5 lbs 89 kg Age: 65 Gender: male BSA: 2.07 PROCEDURE(S) PERFORMED [id number] W OR WO PTCA, SINGLE CORONARY ARTERY CLINICAL PROFILE AND CO-MORBIDITIES Indications: Worsening Angina Heart Failure: None Stress/Imaging Stress/Image Study Performed: No CAD Presentations: Unstable angina. CONCLUSIONS Successful PTCA/RODDY to pLCx RECOMMENDATIONS DESCRIPTION OF PROCEDURE The patient arrived to the procedure lab. The risks and benefits of the procedure as well as a full d escription of our services here and current unavailability of surgical backup were fully explained to the patient and/or their significant other prior to the catheterization. The Timeout was completed, verifying the correct patient and procedure. The patient's procedural site was prepped and draped in the usual fashion. Local anesthetic was given subcutaneously to right radial region with Lidocaine 2% Using a modified Seldinger technique,arterial access was obtained via the right radial artery, a 6Fr sheath was inserted. Left Coronary Artery selective angiography was performed in multiple views usin g a 5 Fr. 4.0 Pool catheter. Right Coronary Artery selective angiography was then performed in multi ple views using a 5 Fr. 4.0 Pool catheter. Left Ventriculography was performed in SUAREZ projection usi ng a 5 Fr. Pigtail catheter. LV to AO pullback pressures were then recorded.The images were reviewed and options discussed. A decision was then made to proceed with an Intervention, IVUS o r other adjunct procedure. xb 3.0 cordis Guide catheter was inserted and engaged into the LCA. bmw Guide wire was advanced t o the Circumflex. PTCA balloon inflated at 8 atms for 25 secs. Angiogram performed post balloon dilat ation. synergy 2.25 x 8 Drug Eluting stent was advanced across the lesion in the circumflex, proximal . Angiogram performed post stent deployment. The arterial sheath was pulled and a TR Band was appli ed for hemostasis INTERVENTION INFORMATION LESION SITE: Circumflex (Proximal) Lesion Complexity: High/C, chronic total occlusion: No, lesion at bifurcation: Yes, thrombus present: No, lesion length: 5 mm, culprit lesion: Yes, Previously treated lesion: No Pre Stenosis: 90 % Pre intervention SHARRI flow: 3 PROCEDURE: Drug Eluting Stent with pre dilatation. Post Stenosis: 0 % Post intervention SHARRI flow: 3 Lesion Devices: Cardinal 6 Fr XB3.0 100cm Guide Catheter Nicola Sci EMERGE MR 2.00x08 BALLOON Zavaleta .014 [employer] [place] Straight 190cm Nicola Sci Synergy MR RODDY 2.25x08 COMPLICATIONS No Complications PROCEDURE MEDICATIONS Versed 1 mg IV Fentanyl 50 mcg IV Versed 1 mg IV Oxygen: 2 L/min via nasal cannula Heparin given IA 05/10/2020 08:05:50 Heparin 6000 unit(s) IV 05/10/2020 08:50:38 Verapamil 2.5mg, Ntg 100mcgs, 2000 units of Heparin given IA 05/10/2020 08:05:50 SUMMARY OF HEMODYNAMIC DATA Time AIR REST ECG 06:55:41 AO 125/62 (88) SA 08:05:07 LV 99/-2, 3 08:10:42 LV 106/-1, 1 08:10:49 LV 108/2, 7 08:11:19 LV 107/1, 4 08:11:26 LVp 110/4, 8 08:11:33 AOp 112/50 (77) 08:11:38 Signed By Blanka Cabrales MD On 05/10/2020 12:56:33 Blanka Cabrales MD
--- NOTE | 2020-05-10 13:25 | PCM.DC.CCA ---
Discharge Diet: Low fat/ Low Cholesterol Discharge Activity: Return to Normal Activity May shower in (days): 1 Lifting Restrictions: 10 pounds and also avoid any pushing or pulling for 3 days after your test. Call your doctor if your incision/area has: Continuous Slow Oozing, Sudden Increased Bleeding, Increased Pain/ Swelling, Increased Redness, Foul Smelling Discharge, Swelling at the incision site Call your doctor if you observe: Fever of 101 or Higher, Shortness of breath, Chest pain Remove Dressing in (days):: 1 Cleanse incision/area with: Soap & Water Additional Dressing/Incision Instructions:: Keep the dressing (bandage) on until the next morning. You may then shower, but do not take a tub bath for 5 days after your test. It is normal to have some tenderness and discomfort at the puncture site. Sometimes bruising also occurs. However, if pain, numbness, or coldness occurs below the puncture site (in your leg, toes, arms or fingers) call your doctor at once. You may have a small, marble sized knot at the puncture site. This is normal. Do not rub it. It will go away in 4-6 weeks. Bleeding can occur from the area where the puncture was done. Blood may spurt or drip from the site. If blood spurts, apply pressure right away to stop bleeding and call 911. Although rare, bleeding into the tissue (hematoma) can also occur. If this happens, a large, firm area goose egg under the skin will appear. If any of these occur, lie down as flat as you can and have someone apply firm pressure to the cath site with a gauze pad or a clean washcloth for 10-15 minutes. Call 911 or go to the Emergency Department. Additional Instructions: Please [facility] your [facility] You were already on Plavix, you will need to be on this for at least one year prior to stopping this. You can stop your ranexa since this was started for Chest pain. Restart your metformin on Friday Allergies/Adverse Reactions: Allergies perfumes Allergy (Uncoded 03/04/20 11:16) unknown Medications to take at Discharge Aspirin E.C. [Ecotrin] 81 mg PO DAILY@0800 09/13/13 Amitriptyline HCl 150 mg PO QHS 02/08/15 omega 6-gpj-fnp-fish oil 1,000 mg (120 mg-180 mg) capsule 1,000 mg PO QDAY cap 01/06/18 atorvastatin 20 mg tablet 20 mg PO QHS 30 Days #30 tab 01/07/19 fluticasone propionate 50 mcg/actuation nasal spray,suspension 1 spray INTRANASAL QODAY 30 Days #16 g 01/07/19 gabapentin 400 mg capsule 1 cap PO BID 90 Days #180 cap 01/07/19 nitroglycerin 0.4 mg sublingual tablet 0.4 mg SUBLINGUAL Q5M PRN #25 tab 01/07/19 omeprazole 20 mg capsule,delayed release 2 cap PO DAILY 75 Days #75 cap 01/07/19 pioglitazone 15 mg tablet 1 tab PO QODAY 90 Days #90 tab 01/07/19 ranitidine HCl 150 mg tablet 1 tab PO QODAY 90 Days #180 tab 01/07/19 glimepiride 4 mg tablet 4 mg PO QAM 02/26/19 clopidogrel 75 mg tablet 75 mg PO DAILY #30 tab 11/19/19 Sertraline HCl 100 mg PO DAILY 03/04/20 amlodipine 5 mg tablet 5 mg PO QHS #30 tab 03/08/20 atenolol 25 mg tablet 25 mg PO DAILY tab 04/25/20 metFORMIN HCl [Glucophage] 1,000 mg PO BIDCM #0 tab 05/10/20 Primary Care Physician: Nadir Abdalla MD [Primary Care Provider] - Test Results: Test results from this visit will be discussed in further detail at your follow-up appointment, if applicable. Please Follow Up With: Yolanda Dean PA When: 05/30/2020 at 0900 Cardiac Rehabilitation Info Cardiac Rehabilitation Program Information: Cardiac Rehabilitation is important for patients like you who are recovering from a heart problem. Cardiac rehabilitation programs are recognized as integral to the continued care of the patient with coronary heart disease. The cardiac rehabilitation program is designed to optimize a patient's physical, psychological, and social functioning. Health career placement services counselor work in cardiac rehabilitation programs and assist you with getting the treatments you need to get stronger and healthier - like exercise, healthy eating habits, and medications. Cardiac rehabilitation has been show to help people with heart problems live longer and have better life enjoyment than people who do not go to cardiac rehabilitation. Please contact the Cardiac Rehabilitation Program at [facility] at in two weeks if you have not heard from them.
[2020-05-10] MEDS: Gabapentin 400 MG Capsule PO (16:25)
[2020-05-10] MEDS: Amitriptyline 100 MG Tablet 150 MG PO (21:31)
[2020-05-10] MEDS: Atorvastatin Calcium 20 MG Tablet PO (21:31)
[2020-05-10] MEDS: amLODIPine 5 MG Tablet PO (21:32)
[2020-05-11] VITALS (7 sets, daily range): BP systolic 123–136; BP diastolic 52–66; PULSE 56–67; RESP 16–18; TEMP 36.3–37.1; O2SAT 93–95
[2020-05-11 04:03] LABS: Hematocrit 36.3 % (40-54); Hemoglobin 11.9 g/dL (13.0-16.5); Mean Corp Hgb Conc 32.8 g/dL (32-36); Mean Corpuscular Hgb 29.4 pg (27.0-32.0); Mean Corpuscular Volume 89.6 fL (80-94); Mean Platelet Vol. 9.5 fl (6.2-12.0); Platelet Count 188 K/mm3 (150-450); RBC Distribution Width CV 13.7 % (11.6-14.6); RBC Distribution Width SD 44.9 fl (35.1-43.9); Red Blood Count 4.05 M/mm3 (4.6-6.2); White Blood Count 5.5 K/mm3 (4.4-11.0)
[2020-05-11 04:22] LABS: ALB/GLOB Ratio 1.1 RATIO (0.9-2.4); AST(SGOT) 26 U/L (15-37); Alanine Aminotransfer ALT/SGPT 32 U/L (16-61); Albumin, Serum 3.7 g/dL (3.2-5.0); Alkaline Phosphatase 99 U/L (45-117); Anion Gap 6 (5-15); BUN 19 mg/dL (7-18); BUN/Creat Ratio 21.6 RATIO (10-20); Calcium,Total 8.8 mg/dL (8.5-10.1); Chloride 107 mmol/L (98-107); Creatinine, Serum 0.88 mg/dL (0.70-1.30); EST Glomerular Filtration Rate 92 mL/min (>60); Est Glom Filt Rate - Afr Amer 111 mL/min (>60); Estimated Creatinine Clearance 84.11 ml/min; Globulin 3.5 g/dL (2.2-4.2); Glucose 106 mg/dL (74-106); Potassium 3.5 mmol/L (3.5-5.1); Protein, Total 7.2 g/dL (6.4-8.2); Sodium Level 138 mmol/L (136-145)
--- NOTE | 2020-05-11 08:22 | PCM.PN.CARD ---
Subjectve: Patient seen and evaluated. Appears to be doing well. Objective: Vital Signs Temp Pulse Resp BP Pulse Ox 98.2 F 59 L 17 123/52 H 93 05/11/20 03:30 05/11/20 08:01 05/11/20 03:30 05/11/20 03:30 05/11/20 07:42 Oxygen Delivery Method Room Air Weight: 193 lb Body Mass Index (BMI) 27.6 Intake and Output for Last 24 Hours 05/09/20 05/10/20 05/11/20 23:59 23:59 23:59 Intake Total 1568 / 1568 150 / 150 Balance 1568 / 1568 150 / 150 General: Awake, Alert, Oriented x 3 HEENT: PERRL, EOMI, Sclera Non Icteric Neck: Supple, Good ROM, No Lymph Node Enlargement Lungs: Clear to auscultation Cardiovascular: Regular Rhythm, Normal S1, Normal S2, No Murmurs, No Rubs, No Gallops 05/11/20 03:45: WBC 5.5, RBC 4.05 L, Hgb 11.9 L, Hct 36.3 L, MCV 89.6, MCH 29.4, MCHC 32.8, Plt Count 188, MPV 9.5 05/11/20 03:45: Sodium 138, Potassium 3.5, Chloride 107, Carbon Dioxide 25.0, Anion Gap 6, BUN 19 H, Creatinine 0.88, Est GFR (MDRD) Af Amer 111, Est GFR (MDRD) Non-Af 92, BUN/Creatinine Ratio 21.6 H, Glucose 106, Calcium 8.8, Total Bilirubin 0.40 Rhythm: EKG: ECHO: Stress Test: Cardiac Cath: PCI: CT Surgery: Holter monitor: EPS: PPM: CXR: Chest CT Scan: Medical Necessity - Tobacco Use Smoking Status: Never smoker Assessment/Plan 1. Status post angioplasty and stenting of the proximal left circumflex artery. Patient did well overnight. Plan #2 continue current medical therapy.
[2020-05-11] MEDS: Glimepiride 4 MG Tablet PO (08:26)
[2020-05-11] MEDS: Gabapentin 400 MG Capsule PO (08:26)
[2020-05-11] MEDS: Aspirin E.C. 81 MG Tablet PO (08:26)
--- NOTE | 2020-05-11 09:30 | EKG12_ITS ---
Test Reason : AM EKG Blood Pressure : / mmHG Vent. Rate : 062 BPM Atrial Rate : 062 BPM P-R Int : 130 ms QRS Dur : 094 ms QT Int : 426 ms P-R-T Axes : 029 022 003 degrees QTc Int : 432 ms Normal sinus rhythm Normal ECG Confirmed by CHANG POTTER, MERI ([id number]), photography editor LEONEL HELTON ([id number]) on 05/15/2020 1:28:37 PM Referred By: Jd Nickerson Confirmed By:KARI DOWNING MD
[2020-05-11] MEDS: Pantoprazole Sodium 20 MG Tablet 40 MG PO (09:33)
[2020-05-11] MEDS: Clopidogrel Bisulfate 75 MG Tablet PO (09:33)
[2020-05-11] MEDS: Omega-3 Acid Ethyl Esters 1 GM Capsule PO (09:33)
[2020-05-11] MEDS: Ranolazine 500 MG Tablet PO (09:33)
[2020-05-11] MEDS: Atenolol 25 MG Tablet PO (09:34)
[2020-05-11] MEDS: Sertraline 100 MG Tablet PO (09:34)
--- NOTE | 2020-05-11 09:49 | PHA.DC.MR ---
Pharmacy Service has performed discharge medication reconciliation for this patient. The patient's discharge medication list was reviewed for discrepancies and discrepancies were resolved. Home Medications Aspirin E.C. [Ecotrin] 81 mg PO DAILY@0800 09/13/13 Amitriptyline HCl 150 mg PO QHS 02/08/15 omega 3-ekt-cvf-fish oil 1,000 mg (120 mg-180 mg) capsule 1,000 mg PO QDAY cap 01/06/18 atorvastatin 20 mg tablet 20 mg PO QHS 30 Days #30 tab 01/07/19 fluticasone propionate 50 mcg/actuation nasal spray,suspension 1 spray INTRANASAL QODAY 30 Days #16 g 01/07/19 gabapentin 400 mg capsule 1 cap PO BID 90 Days #180 cap 01/07/19 nitroglycerin 0.4 mg sublingual tablet 0.4 mg SUBLINGUAL Q5M PRN #25 tab 01/07/19 omeprazole 20 mg capsule,delayed release 2 cap PO DAILY 75 Days #75 cap 01/07/19 pioglitazone 15 mg tablet 1 tab PO QODAY 90 Days #90 tab 01/07/19 ranitidine HCl 150 mg tablet 1 tab PO QODAY 90 Days #180 tab 01/07/19 glimepiride 4 mg tablet 4 mg PO QAM 02/26/19 clopidogrel 75 mg tablet 75 mg PO DAILY #30 tab 11/19/19 Sertraline HCl 100 mg PO DAILY 03/04/20 amlodipine 5 mg tablet 5 mg PO QHS #30 tab 03/08/20 atenolol 25 mg tablet 25 mg PO DAILY tab 04/25/20 metFORMIN HCl [Glucophage] 1,000 mg PO BIDCM #0 tab 05/10/20
== END 2020-05-11 09:06 | disposition home or self-care (01) ==
LOC: CLSP 07:41 → PCU 05-11 09:22
PROVIDERS: Physician Assistant Medical; Specialist; PCP Family Medicine; Referring Provider Internal Medicine Cardiovascular Disease; Visit Provider Internal Medicine Cardiovascular Disease
DX: I25.110 Atherosclerotic heart disease of native coronary artery with unstable angina pectoris (principal); E11.9 Type 2 diabetes mellitus without complications; I10 Essential (primary) hypertension; E78.5 Hyperlipidemia, unspecified; N40.0 Benign prostatic hyperplasia without lower urinary tract symptoms; E66.9 Obesity, unspecified; Z79.84 Long term (current) use of oral hypoglycemic drugs; Z79.02 Long term (current) use of antithrombotics/antiplatelets; Z79.82 Long term (current) use of aspirin; Z79.899 Other long term (current) drug therapy; Z87.891 Personal history of nicotine dependence; Z95.5 Presence of coronary angioplasty implant and graft
CPT/HCPCS: 36415; 71046; 80053; 85027; 85610; 92928; 93005; 93458; 99152; 99153; J7030; J7040; Q9967; C1725; C1769; C1874; C1887; C1894; C9600

== ENCOUNTER → 2020-06-12 08:30 | Outpatient (CLI) | payer MEDICARE, SELFPAY ==
[2017-01-20 11:53] VITALS: BMI 27.1
[2020-05-10 09:36] VITALS: BMI 27.6
[2020-05-30 08:47] VITALS: BMI 28.8
--- NOTE | 2020-06-12 12:58 | CR.HP_ITS ---
CR - History & Physical - General Arrival date:: 06/12/20 Arrival time:: 12:59 Date of Referral:: 05/11/20 Date of CR Evaluation:: 06/12/20 Referring Physician: Dr. Jd Nickerson Primary Diagnosis: Z95.5 PCI with coronary stent - History of Present Cardiac Event Onset Date: Enter Onset Date of cardiac illnesses in Comment field below PTCA or coronary stenting:: Yes - 05/11/2020 - Medications Home Medications: Ambulatory Orders Medication Instructions Recorded Aspirin E.C. [Ecotrin] 81 mg PO DAILY@0800 09/13/13 Amitriptyline HCl 150 mg PO QHS 02/08/15 omega 9-voz-ncw-fish oil 1,000 mg 1,000 mg PO QDAY cap 01/06/18 (120 mg-180 mg) capsule atorvastatin 20 mg tablet 20 mg PO QHS 30 Days #30 tab 01/07/19 fluticasone propionate 50 1 spray INTRANASAL QODAY 30 Days 01/07/19 mcg/actuation nasal #16 g spray,suspension gabapentin 400 mg capsule 1 cap PO BID 90 Days #180 cap 01/07/19 nitroglycerin 0.4 mg sublingual 0.4 mg SUBLINGUAL Q5M PRN #25 tab 01/07/19 tablet omeprazole 20 mg capsule,delayed 2 cap PO DAILY 75 Days #75 cap 01/07/19 release pioglitazone 15 mg tablet 1 tab PO QODAY 90 Days #90 tab 01/07/19 glimepiride 4 mg tablet 4 mg PO QAM 02/26/19 clopidogrel 75 mg tablet 75 mg PO DAILY #30 tab 11/19/19 amlodipine 5 mg tablet 5 mg PO QHS #30 tab 03/08/20 metFORMIN HCl [Glucophage] 1,000 mg PO BIDCM #0 tab 05/10/20 atenolol 25 mg tablet 25 mg PO DAILY #90 tab 06/06/20 - Allergies Allergies/Adverse Reactions: Allergies perfumes Allergy (Uncoded 03/04/20 11:16) unknown - Sleep Disorder Evaluation Hx of Sleep Apnea: No Do you snore loudly (louder than talking or can be heard through closed doors)?: Yes Do you often feel tired/ fatigued/ sleepy during daytime?: Yes Has anyone observed you stop breathing during sleep?: No History of Hypertension (for STOP score): Yes - pt declines STOP Results: Positive Advanced Directives - Advanced Directives Power of Spinner Cap Frame: No Living Will: No Advance Directives Information Provided: Yes Advance Directives on File: No DNR Order?:: No Past Medical History - Covid-19 Screening Fever: No Unexplained muscle aches: No Current respiratory symptoms: No Upper respiratory infections symptoms: No Gastro-intestinal symptoms: No Jxd-Xstg-Zwxybi symptoms: No Has tested positive for COVID-19 in last 30 days: No Had contact w/person w/symptoms or Covid-19 (+) last 14 days: No Has High Risk Exposures ID'd by Health dept/Inf Control team: No 65 years or older:: No Lives in Assisted Living facility:: No Has a chronic lung disease or moderate to severe asthma:: No Has a serious heart condition:: Yes Immunocompromised:: No Severely obese (Body Mass Index of 40 or higher):: No Diabetic:: Yes Has chronic kidney disease undergoing dialysis:: No Has liver disease:: No - Past Medical Illness Medical History: Past Medical History (Last Reviewed 05/30/20 @ 09:17 by Yolanda DENISE, PA) ASHD (arteriosclerotic heart disease) (Chronic) I25.10 PCI-RODDY-Mid LAD w/ 2.5 x 16 mm Synergy Stent and RODDY-Mid Ramus w/ 2.25 x 16 mm Synergy MR 01/20/2017; SHE-BNX-Egnwnh LCx w/ 2.25 x 08 mm Synergy MR Stent 05/10/2020 Bilateral carotid artery stenosis (Chronic) I65.23 Essential (primary) hypertension (Chronic) I10 Hyperlipidemia (Chronic) E78.5 BPH (benign prostatic hyperplasia) N40.0 Carotid artery stenosis I65.29 DDD (degenerative disc disease) Elevated LFTs R79.89 Obesity E66.9 Sciatica M54.30 Type 2 diabetes mellitus E11.9 - Past Surgical History Surgical History: Past Surgical History (Last Reviewed 05/30/20 @ 09:17 by Yolanda DENISE, PA) History of coronary artery stent placement (Resolved) Onset Date: 05/10/20 Z95.5 PCI-RODDY-Mid LAD w/ 2.5 x 16 mm Synergy Stent and RODDY-Mid Ramus w/ 2.25 x 16 mm Synergy MR 01/20/2017; YTM-XSQ-Dmdaws LCx w/ 2.25 x 08 mm Synergy MR Stent 05/10/2020 History of hand surgery Z98.890 History of left heart catheterization Onset Date: 02/01/19 Z98.890 Hx of appendectomy Z98.890, Z90.49 Surgical History: angioplasty, appendectomy - Family History Summary Family History: Family History (Last Reviewed 05/30/20 @ 09:17 by Yolanda Dean PA, PA) Sister CAD (coronary artery disease) CVA (cerebral vascular accident) Diabetes Myocardial infarction Hx of CABG Mother Cancer Lung CA Social History - Smoking History Smoking Status: Never smoker - Alcohol Use Alcohol Usage: No - Substance Abuse Hx Substance Use: No - Occupation Occupation (List type of work in comments):: Retired - Hobbies, Recreation, Social Activities Hobbies: Other - artist, model cars Recreational Activities: I am able to engage in all my recreational activities Social Environment - Status Marital Status: - Current Living Arrangements Living Environment:: Family - Children How many children do you have?: 2 Do any of your children live nearby?: Yes - Safety Do you feel safe in your surroundings?: Yes - Assistance Do you need any assistance at home?: no Review of Systems - Review of Systems Hints: Right click = Denies (Slash). Left click = Reports ([place]) Review of Present Symptoms: Reports: Dizziness/Lightheadedness, Fatigue, Appetite - Normal, Appetite - Special Diet, Sleep - Normal. Denies: Shortness of Breath at Rest, Shortness of Breath with Exertion, PVD, Operative Discomfort, Angina, Wound Healing, Heart Arrhythmia/Irregularities, Sexual Changes - Pain Is Patient Pain Free?: No Pain Location: head Pain Level: 06/10 Risk Factor Assessment - Vital Signs Pulse Ox: 97 Blood Pressure: 130/72 - Pulse Pulse Rate: 81 Pulse Rhythm: Regular - Hypertension On medication(s)?: 40 - Stress Stress: Long-standing - - Obesity Height: 5 ft 10 in Weight:: 95.254 kg Weight in Pounds: 210.0 lbs Body Mass Index (BMI): 30.1 Nutritional Referral for Obesity: No - Physical Inactivity Physical Inactivity: Recreational activity - walking - Risk Stratification Risk Guidelines: Lowest Risk: Risk Factor for Smoking, Moderate Risk: Risk Factor for Dyslipidemia, Risk Factor for Obesity, Risk Factor for Sedentary Lifestyle, Risk Factor for Depression, Highest Risk: Risk Factor for Diabetes, Risk Factor for Hypertension - For Smoking Smoking Risk Guidelines: Smoking Low Risk: None or quit greater than 6 months ago. Smoking Moderate Risk: Smoker or quit 6 months or less ago. Smoking High Risk: Smoker - For Dyslipidemia Dyslipidemia Risk Guidelines: Low Risk: Moderate Risk: High Risk: 15-25% fat 25.1-29% fat >/= 30% fat. <7% sat fat 7-9% sat fat >9% sat fat. <150 mg chol 150-299 mg chol >/= 300 mg chol. LDL <100 LDL 100-129 LDL >/= 130. Chol/HDL ratio <5.0 Chol/HDL ratio 5.0-6.0 Chol/HDL ratio >6.0. Triglycerides <100 Triglycerides 100- 149 Triglycerides >/= 150 - For Diabetes Mellitus Diabetes Risk Guidelines: Diabetes Low Risk: HgA1c <6.5% and/or FBG <120. Diabetes Moderate Risk: HgA1c 6.6-7.9% and/or FBG 120-180. Diabetes High Risk: HgA1c >/= 8% and/or FBG >180 - For Obesity/Overweight Obesity/Overweight Risk Guidelines: Obesity Low Risk: BMI <25.0. Obesity Moderate Risk: BMI 25-29.9. Obesity High Risk: BMI >/= 30.0 - For Hypertension Hypertension Risk Guidelines: Hypertension Low Risk: Systolic <120 and Diastolic <80. Hypertension Moderate Risk: Systolic 120-139 and Diastolic 80-89. Hypertension High Risk: Systolic >/= 140 and Diastolic >/= 90 - For Sedentary Lifestyle Sedentary Lifestyle Risk Guidelines: Sedentary Lifestyle Low Risk: >/= 1,500 kcal/week. Sedentary Lifestyle Moderate Risk: 700-1,499 kcal/week. Sedentary Lifestyle High Risk: < 700 kcal/week - For Depression Depression Risk Guidelines: Depression Low Risk: Not clinically depressed. Depression Moderate Risk: Mildly depressed. Depression High Risk: Clinically depressed - Family History Family History: Family History (Last Reviewed 05/30/20 @ 09:17 by Yolanda Dean PA, PA) Sister CAD (coronary artery disease) CVA (cerebral vascular accident) Diabetes Myocardial infarction Hx of CABG Mother Cancer Motivation - Motivation to Participate On a scale of 1 to 10, how prepared are you to commit to attending program?: 10 What do you see as barriers to successfully being able to complete the program?: hip pain What do you see as the benefits of succesfully completing the program? In other words, what do you hope to get out of participating in the program?: improved health Are there issues you are dealing with that will interfere with completing the program?: headaches Do you have a spouse or signficant other, family or friends who will help support you to complete the program?: family
--- NOTE | 2020-06-12 12:59 | CR.ITP_ITS ---
Diagnosis - General Information Admitting Diagnosis: Z95.5 PCI with coronary stent Personal Learning Style:: Audio/Visual Barriers to Learning: Low Literacy, Vision Impairment Stage of change r/t lifestyle modifications:: Contemplation Gave educational material for:: Treating Heart Disease, Emotions & Heart Disease, Stress Management & Relaxation, Sleep Disorders & Heart Disease, How The Heart Works, What it means to have Heart Disease, How Coronary Artery Disease is Diagnosed, Heart Procedures, What Heart Medications Do, Risk Factors & Modifications, Living an Active Life, Nutrition - Education/Goals Cardiac Rehabilitation Goals: 1. Maintain the individual as the primary focus of care. 2. To improve the patient's quality of life. 3. Identification of cardiac risk factors and provide cardiac risk factor management. 4. Enhance the psychosocial status of the patient. 5. Reconditioning enough to allow the patient to resume customary activities. 6. Control symptoms of cardiac disease Personal Goals: Initial Assessment: Improve energy level Scale for measuring improvement of personal goals: Enter appropriate number in Comments. 2 = Unchanged. 3 = Slightly Better. 4 = Moderate Improvement. 5 = Met my Goal - Diagnosis & Disease Process Outcomes/Goals: Pt IDs own risk factors & lifestyle modifications by Session 10, Verbalizes symptoms of angina & response by session 3., Pt independently manages, Other Additional Outcomes/Goals: Plan/Interventions: Assist Pt to ID & engage in lifestyle modification to reduce CVD risk, Instruct on individual risk factors, Review symptoms of angina & emergency actions, Review secondary diagnosis & identify educational needs., Other see comment 30 day Reassessments:: Not Met 30 day Reassessments:: Not Met 30 day Reassessments:: Not Met 30 day Reassessments:: Not Met Final Reassessments:: Not Met - Safety Referral to Physical Therapy: No Referral to [facility] Case Management: No Fall Risk Assessed:: Yes Assistive Devices:: None Exercise - Initial Assessment - Visit Date of Eval: 06/12/20 - initial eval Mets: Pre-: >7 METS for 30 minutes by discharge - Physician Prescribed Exercise Modalities: Treadmill, Biodyne, Rower, Airdyne, NuStep, SciFit Frequency: 3x/week for 12 weeks [36 sessions] Intensity: 60-80% of age predicted maximum heart rate reserve Current METSs:: 3.0 Target Heart Rate:: 100-130 Resting Blood Pressure: 130/72 EKG Type: sinus rhythm - Outcomes & Goals Goals:: Verbalizes understanding of THR, RPE & goal METS by session 6, Documents in home exercise log/reports 30 min aerobic 5 day/wk by DC, Demonstrates accurate pulse taking by DC, Other additional outcome/goals: see below - Intervention & Plan Exercise Program Goals: Instruct on personal THR & RPE, Instruct on MET level & personal MET goal, Show patient to take own pulse /validate performance until accurate, Instruct on home exercise, Other additional plan/int - Physical Activity Home Exercise Physical Activity - Home Exercise: Safe Exercise, Warm-up, Self-monitoring, Cool-Down, Home Exercise > 30 min Daily, Sitting Time <3 hours/daily - Intervention & Plan Plan/Intervention: Instruct warm-up & cool-down if exercising at > 2 METs, Instruct on symptoms of exercise intolerance & actions to take, Instruct & monitor on saf, Assess intial functional capacity & safety risk, Other See below Nutrition - Initial Assessment - Program Goals Nutrition Program Goals: LDL <100 optimal. 100 - 129 Near optimal. 130 - 159 Borderline High. 160 - 189 High. Total Cholesterol <200 desirable. 200 - 239 Borderline High. >/= 240 High. HDL < 40 Low >/=60 High. Triglycerides <150 desirable. <199 optimal. VlDL 5 - 40. HgbA1C <7%. BMI <25 Patient has diagnosis of Hyperlipidemia (ICD E78)?: Yes - Visit Date of Assessment:: 06/12/20 - initial eval - Cholesterol/Lipids Outcomes/Goals: Pt IDs own risk factors & lifestyle modifications by Session 10, Verbalizes symptoms of angina & response by session 3., Pt independently manages, Other Additional Outcomes/Goals: Intervention/Plan: Advocate for lipid panel cholesterol medication if applicable, Instruct on personal lipid levels & lipid goals/NCEP guidelines, Instruct on cholesterol, Other additional plan/int - Diabetes (Other Core Measures) Diabetes Type: Diagnosis Type II ICD-10 E11 Outcomes/Goals:: Able to state symptoms of, Able to state, Able to state, Other additional Intervention/Plan:: Instruct on, Refer to, Instruct on, Other - Weight Mgt (Other Care) Height: 5 ft 10 in Weight:: 95.254 kg BMI: 30.1 Diagnosis Overweight/Obesity BMI> 30% ICD-10 E66: No Diagnosis High BMI/Morbid Obesity BMI> 35% ICD-10 Z68: No Outcomes/Goals: Pt sets, maintains & shows weight loss goal & trend during rehab, Other additional outcomes/goals Intervention/Plan: Instruct on ideal BMI & set weight loss goal w/patient, Assist pt to ID & incorporate diet changes for weight loss by S9, Refer to Structured Weight Loss program as appropriate, Encourage goal of using 250- 300dcal per session for weight loss, Other additional plan/interventions - Healthy Eating Habits Will attend diet classes:: Yes Outcomes/Goals:: Consume diet rich in vegs,fruits,whole grain/high fiber,fish,lean meat, Limit sat/trans fats,cholesterol & added salts & sugars, Other additional outcome/goals: - Education Gave educational materials for:: Signs & symptoms of hypoglycemia, Signs & symptoms of hyperglycemia, Relate diabetes to coronary artery disease, Healthy eating Medical - Initial Assessment - Visit Date of Eval: 06/12/20 - initial eval - Medication Compliance Preventative Medication(s):: Aspirin, Statin/lipid, Beta seun H/O mental health issues: depression, anxiety, or addiction?: No Doesn?t believe in the benefits of treatment?: No Believes medications are unnecessary or harmful?: No Has a concern about medication side effects?: No Expresses concern over the cost of medications?: No Outcomes/Goals: Verbalizes medications,desired effect & common side effects @ DC, Pt self-reports following medication regimen, Keeps card in wallet w/medications listed by DC, Other additional outcome/goals: Interventions/plans: Instruct on medication effects & side effects, Review medication list w/patient every two weeks, Instruct importance of taking meds as ordered & assist problem solving, Other additional - Tobacco Use Tobacco Use: Non-smoker - Hypertension Hypertension Diagnosis:: Hypertension ICD-10 I10 Resting Blood Pressure:: 130/72 [place] [employer] Hypertension Guidelines: [place] [employer] Hypertension Guidelines. Normal BP Less than 120/80. Elevated BP 120/80. Hypertension Stage 1: BP 130-139/80-89. Hypertesnion Stage 2: BP 140 or higher/90 or higher. Hypertension Crisis: BP higher than 180/120 Outcomes/Goals: Able to verbalize/achieve optimal blood pressure <130/80, Incorporates diet changes & exercise for blood pressure control by DC, Other additional outcomes/goals - Tobacco Cessation Referral Smoking Cessation Referral:: No Individual Education/Counseling:: No Education Schedule Given:: Yes Psychosocial - Initial Assess - VIsit Date of Eval: 06/12/20 - initial eval Not Applicable: No Self-reported stressors: Family - pt's - Target Goals Target Goals: Assess presence or absence of depression. Using a valid screening tool, maximizes coping skills. Positive support system - Psychosocial Test Tool Used:: Luba Brower QOL Cardiac, PHQ-9 Questionnaire phq-9 Severity: Severity. 1-4 Minimal Depression. 5-9 Mild Depression. 10-14 Moderate Depression. 15-19 Moderately Sever Depression. 20-27 Severe Depression. Rule: See PHQ-9 Score: 5 - Referral to Behavioral Health PS - Interventions: Yes Referral to Behavioral Health if PHQ-9 score >9:, Yes Referral to Physician if PHQ-9 if score is 5-9:, Yes Attend Stress Management Classes, No Referral to [facility] - Outcomes/Goals: See list Psychosocial Outcomes/Goals:: ID's personal stressors & 2 strategies to manage stress by discharge, Other Additional outcome/goals: - Intervention/Plan: See List Interventions/Plan:: Assess stressors,coping strategies & signs of derpression on admission, Instruct/assist pt to develop coping & personal stress Mgt strategies, Refer to Behavioral Health if appropriate, Refer to Physician if appropriate, Instruct patient to recognize signs & symptoms of depression, Instruct patient to recog, Other additional plan/intervention Patient Health Questionnaire Initial Assessment 1. Little interest or pleasure in doing things: More than half the days 2. Feeling down, depressed, or hopeless: Not at all 3. Trouble falling or staying asleep, or sleeping too much: Several days 4. Feeling tired or having little energy: More than half the days 5. Poor appetite or overeating: Not at all 6. Feeling bad about yourself -- or that you are a failure or have let yourself or your family down: Not at all 7. Trouble concentrating on things, such as reading the newspaper or watching television: Not at all 8. Moving or speaking so slowly that other people could have noticed. Or the opposite - being so fidgety or restless that you have been moving around a lot more than usual: Not at all 9. Thoughts that you would be better off , or of hurting yourself in some way: Not at all How difficult have these problems made it for you to do your work, take care of things at home, or get along with other people?: Not difficult at all Total Score: 5 MONICA-Q SV Test - Statements CAD is a disease of the arteries in the heart: False Examples of risk factors for heart disease: True Angina is chest pain or discomfort: True The benefits of resistance training include: True Eating more meat and dairy products: False Anti-platelet medications such as aspirin are important: True The only effective way to manage stress: False An exercise warm-up slowly increases heart rate: True Prepared, processed foods usually have high sodium: True Depression is common after a heart attack: True The statin medications lower cholesterol: True To control blood pressure, lower the amount of sodium: True If someone gets chest discomfort during walking: False Transfats are partially hydrogenated vegetable oils: True Sleep apnea that is not treated increases the risk: True To control cholesterol, one should become a vegetarian: False Someone knows if he/she is exercising at the right level: True Diabetes cannot be prevented with exercise & health eating: True Stress is a large risk for heart attack: True A diet that can help lower blood pressure is rich in: True - Total Score Total Correct Responses: 18 Self-Efficacy Initial Assessment We would like to know how confident you are in doing certain activities. Please select your confidence level for:: Select your confidence level for the following using the scale 1-10 where 1 is not at all confident and 10 is totally confident. Your score is the average of all 6 responses. Fatigue: How confident are you that you can keep the fatigue caused by your disease from interfering with the things you want to do? Select Number: 6 Physical Discomfort or Pain: How confident are you that you can keep the physical discomfort or pain of your disease from interfering with the things you want to do? Select Number: 6 Emotional Distress: How confident are you that you can keep the emotional distress caused by your disease from interfering with the things you want to do? Select Number: 10 Other Symptoms or Health Problems: How confident are you that you can keep other symptoms or health problems from interfering with the things you want to do? Select Number: 6 Different Tasks and Activities: How confident are you that you can do the different tasks and activities needed to manage your health condition so as to reduce your need to see a doctor? Select Number: 7 Medication: How confident are you that you can do things other than just taking medication to reduce how much your illness affects your everyday life? Select Number: 6 Total Score:: 6 Nutrition Survey - Nutrition Survey Instructions Scoring Instructions: Scoring is as follows: Yes = 1 points. No = 0 point. Patient score that is >/=12 is considered to be at potential nutritional risk and could benefit from a referral to a registered dietitian. - Nutrition Survey Initial Have you lost >10 lbs over the past 2 months without trying?: No Are you following a special diet at home for diabetes, low fat, or low salt?: Yes Are you interested in meeting with a dietitian for help understanding your diet?: No Do you eat less than 3 meals a day?: Yes Do you eat fatty meats (antonio, sausage, ribs, etc), fried foods, desserts, large amounts of salad dressings, margarine, butter, or cheese most days?: Yes Do you have food allergies? [Enter types in comment field]: No Do you eat in restaurants more than 3 times a week?: No Do you season food with salt, seasoning salt, or garlic salt?: Yes Do you used canned, boxed, frozen meals, or soups, seasoning packets?: Yes Total Score:: 5
[2020-06-12 13:53] VITALS: BP 130/72; PULSE 81; O2SAT 97; BMI 30.1
== END ==
PROVIDERS: PCP Family Medicine; Referring Provider Internal Medicine Cardiovascular Disease; Visit Provider Internal Medicine Cardiovascular Disease
DX: I25.119 Atherosclerotic heart disease of native coronary artery with unspecified angina pectoris (principal); Z95.5 Presence of coronary angioplasty implant and graft; I65.23 Occlusion and stenosis of bilateral carotid arteries; I10 Essential (primary) hypertension; E78.5 Hyperlipidemia, unspecified

== ENCOUNTER 2020-06-30 08:00 | Outpatient (RCR) | payer MEDICARE, SELFPAY ==
[2020-06-12 13:53] VITALS: BMI 30.1
[2020-06-14 13:07] VITALS: BMI 30.1
== END 2020-07-01 23:59 ==
LOC: CR 08:00
PROVIDERS: PCP Family Medicine; Referring Provider Internal Medicine Cardiovascular Disease; Visit Provider Internal Medicine Cardiovascular Disease
DX: I25.119 Atherosclerotic heart disease of native coronary artery with unspecified angina pectoris (principal); Z95.5 Presence of coronary angioplasty implant and graft; I65.23 Occlusion and stenosis of bilateral carotid arteries; I10 Essential (primary) hypertension; E78.5 Hyperlipidemia, unspecified
CPT/HCPCS: 93798

== ENCOUNTER 2020-07-31 08:00 | Outpatient (RCR) | payer MEDICARE, SELFPAY ==
[2020-06-12 13:53] VITALS: BMI 30.1
[2020-06-14 13:07] VITALS: BMI 30.1
--- NOTE | 2020-07-12 07:17 | PCM.CR.ITP ---
Exercise - 30-day Assessment - Visit Date of Eval: 07/12/20 Session #:: 9 - Physician Prescribed Exercise Modalities: Treadmill, Airdyne, NuStep Frequency: 3x/week for 12 weeks [36 sessions] Intensity: 60-80% of age predicted maximum heart rate reserve Current METSs:: 5.0 increase from 3.0 Target Heart Rate:: 100-130 Current RPE:: 11-13 Maximum Excercise HR:: 114 Resting Blood Pressure: 112/54 Maximum Exercise Blood Pressure: 172/60 EKG Type: NSR to sinus tach with an isolated PAC - Outcomes & Goals Goals:: Verbalizes understanding of THR, RPE & goal METS by session 6, Documents in home exercise log/reports 30 min aerobic 5 day/wk by DC, Demonstrates accurate pulse taking by DC - Intervention & Plan Exercise Program Goals: Instruct on personal THR & RPE, Instruct on MET level & personal MET goal, Show patient to take own pulse /validate performance until accurate, Instruct on home exercise - 30-day Reassessments 30 day Reassessments:: Progressing - Physical Activity Home Exercise Physical Activity - Home Exercise: Safe Exercise, Warm-up, Self-monitoring, Cool-Down, Home Exercise > 30 min Daily, Sitting Time <3 hours/daily - Outcomes & Goals Outcomes/Goals: Demonstrates correct Warm-up/exercise Cool-Down (S3) if = 2.5 METs, Verbalizes symptoms of exercise intolerance by Session 3 (S3), Demonstrate safe equipment use (S3) & follows exercise prescrition (6) - Intervention & Plan Plan/Intervention: Instruct warm-up & cool-down if exercising at > 2 METs, Instruct on symptoms of exercise intolerance & actions to take, Instruct & monitor on saf, Assess intial functional capacity & safety risk - 30-day Reassessments 30 day Reassessments:: Progressing Nutrition - 30-Day Assessment - Program Goals Nutrition Program Goals: LDL <100 optimal. 100 - 129 Near optimal. 130 - 159 Borderline High. 160 - 189 High. Total Cholesterol <200 desirable. 200 - 239 Borderline High. >/= 240 High. HDL < 40 Low >/=60 High. Triglycerides <150 desirable. <199 optimal. VlDL 5 - 40. HgbA1C <7%. BMI <25 Patient has diagnosis of Hyperlipidemia (ICD E78)?: Yes - Visit Date of Assessment:: 07/12/20 Session #:: 9 - Cholesterol/Lipids Triglycerides (mg/dL): 187 - 04/25/2020 Total Cholesterol (mg/dL): 134 LDL Cholesterol (mg/dL): 49 HDL Cholesterol (mg/dL): 48 Determine presence & major risk factors that modify LDL goal: Hypertension or hypertensive medication, Family history of premature CHD in Male < 55 years: female <65 yearsFa, Age men > 45 years; women >/= 55 years Outcomes/Goals: Pt IDs own risk factors & lifestyle modifications by Session 10, Verbalizes symptoms of angina & response by session 3., Pt independently manages Intervention/Plan: Instruct on personal lipid levels & lipid goals/NCEP guidelines, Instruct on cholesterol Referral to dietitian:: Yes - Medical Nutrition Therapy 30-day Reassessments:: Progressing - Diabetes (Other Core Measures) Diabetes Type: Not Applicable - Weight Mgt (Other Care) Not Applicable: No Height: 5 ft 10 in Weight:: 208 lb 8 oz BMI: 29.9 Diagnosis Overweight/Obesity BMI> 30% ICD-10 E66: Yes Diagnosis High BMI/Morbid Obesity BMI> 35% ICD-10 Z68: No Outcomes/Goals: Pt sets, maintains & shows weight loss goal & trend during rehab Intervention/Plan: Instruct on ideal BMI & set weight loss goal w/patient, Assist pt to ID & incorporate diet changes for weight loss by S9, Refer to Structured Weight Loss program as appropriate, Encourage goal of using 250-300dcal per session for weight loss 30 day Reassessments:: Progressing - Healthy Eating Habits Will attend diet classes:: Yes Outcomes/Goals:: Consume diet rich in vegs,fruits,whole grain/high fiber,fish,lean meat, Limit sat/trans fats,cholesterol & added salts & sugars Intervention/Plan:: Assess current eating habits 30-day Reassessments:: Progressing Medical- 30-Day Assessment - Visit Date of Eval: 07/12/20 Session #:: 9 - Medication Compliance Preventative Medication(s):: Aspirin, Clopidogrel/P2Y12 inhibit, Statin/lipid, Beta seun H/O mental health issues: depression, anxiety, or addiction?: No Doesn?t believe in the benefits of treatment?: No Believes medications are unnecessary or harmful?: No Has a concern about medication side effects?: No Expresses concern over the cost of medications?: No Outcomes/Goals: Verbalizes medications,desired effect & common side effects @ DC, Pt self-reports following medication regimen, Keeps card in wallet w/medications listed by DC Interventions/plans: Instruct on medication effects & side effects, Review medication list w/patient every two weeks, Instruct importance of taking meds as ordered & assist problem solving 30-day Reassessments:: Progressing - Tobacco Use Tobacco Use: Non-smoker - Hypertension Hypertension Diagnosis:: Hypertension ICD-10 I10 Resting Blood Pressure:: 112/54 - well controlled on medication [place] [employer] Hypertension Guidelines: [place] [employer] Hypertension Guidelines. Normal BP Less than 120/80. Elevated BP 120/80. Hypertension Stage 1: BP 130-139/80-89. Hypertesnion Stage 2: BP 140 or higher/90 or higher. Hypertension Crisis: BP higher than 180/120 Peak Exercise Blood Pressure:: 172/60 - normal response Outcomes/Goals: Able to verbalize/achieve optimal blood pressure <130/80, Incorporates diet changes & exercise for blood pressure control by DC Interventions/plan: Instruct on optimal blood pressure, hypertension & medications, Instruct on effects of sodium, alcohol, stress, exercise &hypertension 30 day Reassessments:: Progressing - Tobacco Cessation Referral Smoking Cessation Referral:: No Individual Education/Counseling:: No Education Schedule Given:: Yes Psychosocial - 30-Day Assess - VIsit Date of Eval: 07/12/20 Session #:: 9 Not Applicable: Yes History of previous Mental disease:: No - Target Goals Target Goals: Assess presence or absence of depression. Using a valid screening tool, maximizes coping skills. Positive support system - Psychosocial Test Tool Used:: PHQ-9 Questionnaire phq-9 Severity: Severity. 1-4 Minimal Depression. 5-9 Mild Depression. 10-14 Moderate Depression. 15-19 Moderately Sever Depression. 20-27 Severe Depression. Rule: - Referral to Behavioral Health PS - Interventions: Yes Attend Stress Management Classes, No Referral to Behavioral Health if PHQ-9 score >9:, No Referral to [facility], No Referral to Physician if PHQ-9 if score is 5-9: - Outcomes/Goals: See list Psychosocial Outcomes/Goals:: ID's personal stressors & 2 strategies to manage stress by discharge - Intervention/Plan: See List Interventions/Plan:: Assess stressors,coping strategies & signs of derpression on admission, Instruct/assist pt to develop coping & personal stress Mgt strategies, Instruct patient to recognize signs & symptoms of depression, Instruct patient to recog - 30-day Reassessments: 30 day Reassessments:: Progressing Patient Health Questionnaire 30-Day Re-eval Assessment 1. Little interest or pleasure in doing things: Several days 2. Feeling down, depressed, or hopeless: Not at all 3. Trouble falling or staying asleep, or sleeping too much: Not at all 4. Feeling tired or having little energy: Several days 5. Poor appetite or overeating: Not at all 6. Feeling bad about yourself -- or that you are a failure or have let yourself or your family down: Not at all 7. Trouble concentrating on things, such as reading the newspaper or watching television: Not at all 8. Moving or speaking so slowly that other people could have noticed. Or the opposite - being so fidgety or restless that you have been moving around a lot more than usual: Not at all 9. Thoughts that you would be better off , or of hurting yourself in some way: Not at all How difficult have these problems made it for you to do your work, take care of things at home, or get along with other people?: Not difficult at all Total Score: 2 Self-Efficacy 30-Day Re-eval Assessment We would like to know how confident you are in doing certain activities. Please select your confidence level for:: Select your confidence level for the following using the scale 1-10 where 1 is not at all confident and 10 is totally confident. Your score is the average of all 6 responses. Fatigue: How confident are you that you can keep the fatigue caused by your disease from interfering with the things you want to do? Select Number: 8 Physical Discomfort or Pain: How confident are you that you can keep the physical discomfort or pain of your disease from interfering with the things you want to do? Select Number: 8 Emotional Distress: How confident are you that you can keep the emotional distress caused by your disease from interfering with the things you want to do? Select Number: 10 Other Symptoms or Health Problems: How confident are you that you can keep other symptoms or health problems from interfering with the things you want to do? Select Number: 8 Different Tasks and Activities: How confident are you that you can do the different tasks and activities needed to manage your health condition so as to reduce your need to see a doctor? Select Number: 9 Medication: How confident are you that you can do things other than just taking medication to reduce how much your illness affects your everyday life? Select Number: 9 Total Score:: 8
[2020-07-12 07:28] VITALS: BP 112/54; BP 172/60; BMI 29.9
== END 2020-07-31 23:59 ==
LOC: CR 08:00
PROVIDERS: PCP Family Medicine; Referring Provider Internal Medicine Cardiovascular Disease; Visit Provider Internal Medicine Cardiovascular Disease
DX: I25.119 Atherosclerotic heart disease of native coronary artery with unspecified angina pectoris (principal); Z95.5 Presence of coronary angioplasty implant and graft; I65.23 Occlusion and stenosis of bilateral carotid arteries; I10 Essential (primary) hypertension; E78.5 Hyperlipidemia, unspecified
CPT/HCPCS: 93798

== ENCOUNTER 2020-08-30 08:00 | Outpatient (RCR) | payer MEDICARE, SELFPAY ==
[2020-07-12 07:28] VITALS: BMI 29.9
[2020-07-25 13:53] VITALS: BMI 29.9
[2020-08-01 00:35] VITALS: BP 112/54; BP 172/60
--- NOTE | 2020-08-11 08:03 | PCM.CR.ITP ---
Exercise - 60-day Assessment - Visit Date of Eval: 08/11/20 Session #:: 21 - Physician Prescribed Exercise Modalities: Treadmill, Airdyne, NuStep Frequency: 3x/week for 12 weeks [36 sessions] Intensity: 60-80% of age predicted maximum heart rate reserve Current METSs:: 6.5 Target Heart Rate:: 100-130 Current RPE:: 12 Maximum Excercise HR:: 126 Resting Blood Pressure: 114/60 Maximum Exercise Blood Pressure: 140/52 EKG Type: NSR to sinus tachy with an isolated PVC - Outcomes & Goals Goals:: Verbalizes understanding of THR, RPE & goal METS by session 6, Documents in home exercise log/reports 30 min aerobic 5 day/wk by DC, Demonstrates accurate pulse taking by DC, Other additional outcome/goals: see below - Intervention & Plan Exercise Program Goals: Instruct on personal THR & RPE, Instruct on MET level & personal MET goal, Show patient to take own pulse /validate performance until accurate, Instruct on home exercise, Other additional plan/int - 30-day Reassessments 30 day Reassessments:: Progressing - Physical Activity Home Exercise Physical Activity - Home Exercise: Safe Exercise, Warm-up, Self-monitoring, Cool-Down, Home Exercise > 30 min Daily, Sitting Time <3 hours/daily - Outcomes & Goals Outcomes/Goals: Demonstrates correct Warm-up/exercise Cool-Down (S3) if = 2.5 METs, Verbalizes symptoms of exercise intolerance by Session 3 (S3), Demonstrate safe equipment use (S3) & follows exercise prescrition (6), Other: See below - Intervention & Plan Plan/Intervention: Instruct warm-up & cool-down if exercising at > 2 METs, Instruct on symptoms of exercise intolerance & actions to take, Instruct & monitor on saf, Assess intial functional capacity & safety risk, Other See below - 30-day Reassessments 30 day Reassessments:: Progressing Nutrition - 60-Day Assessment - Program Goals Nutrition Program Goals: LDL <100 optimal. 100 - 129 Near optimal. 130 - 159 Borderline High. 160 - 189 High. Total Cholesterol <200 desirable. 200 - 239 Borderline High. >/= 240 High. HDL < 40 Low >/=60 High. Triglycerides <150 desirable. <199 optimal. VlDL 5 - 40. HgbA1C <7%. BMI <25 Patient has diagnosis of Hyperlipidemia (ICD E78)?: Yes - Visit Date of Assessment:: 08/11/20 Session #:: 21 - Cholesterol/Lipids Determine presence & major risk factors that modify LDL goal: Hypertension or hypertensive medication, Low HDL cholesterol <40 mg/dL*, Family history of premature CHD in Male < 55 years: female <65 yearsFa, Age men > 45 years; women >/= 55 years Outcomes/Goals: Pt IDs own risk factors & lifestyle modifications by Session 10, Verbalizes symptoms of angina & response by session 3., Pt independently manages, Other Additional Outcomes/Goals: Intervention/Plan: Advocate for lipid panel cholesterol medication if applicable, Instruct on personal lipid levels & lipid goals/NCEP guidelines, Instruct on cholesterol, Other additional plan/int Referral to dietitian:: Yes - medical nutrition therapy 30-day Reassessments:: Progressing - Diabetes (Other Core Measures) Diabetes Type: Not Applicable - Weight Mgt (Other Care) Height: 5 ft 10 in Weight:: 94.347 kg BMI: 29.8 Outcomes/Goals: Pt sets, maintains & shows weight loss goal & trend during rehab, Other additional outcomes/goals Intervention/Plan: Instruct on ideal BMI & set weight loss goal w/patient, Assist pt to ID & incorporate diet changes for weight loss by S9, Refer to Structured Weight Loss program as appropriate, Encourage goal of using 250-300dcal per session for weight loss, Other additional plan/interventions 30 day Reassessments:: Progressing - Healthy Eating Habits Will attend diet classes:: Yes Outcomes/Goals:: Consume diet rich in vegs,fruits,whole grain/high fiber,fish,lean meat, Limit sat/trans fats,cholesterol & added salts & sugars, Other additional outcome/goals: Intervention/Plan:: Assess current eating habits, Other Additional plan/interventions 30-day Reassessments:: Progressing - Education Gave educational materials for:: Signs & symptoms of hypoglycemia, Signs & symptoms of hyperglycemia, Relate diabetes to coronary artery disease, Healthy eating Medical- 60-Day Assessment - Visit Date of Eval: 08/11/20 Session #:: 21 - Medication Compliance Preventative Medication(s):: Aspirin, Clopidogrel/P2Y12 inhibit, Beta seun H/O mental health issues: depression, anxiety, or addiction?: No Outcomes/Goals: Verbalizes medications,desired effect & common side effects @ DC, Pt self-reports following medication regimen, Keeps card in wallet w/medications listed by DC, Other additional outcome/goals: Interventions/plans: Instruct on medication effects & side effects, Review medication list w/patient every two weeks, Instruct importance of taking meds as ordered & assist problem solving, Other additional 30-day Reassessments:: Progressing - Tobacco Use Tobacco Use: Non-smoker Do you use smokeless tobacco?: No - Hypertension Hypertension Diagnosis:: Hypertension ICD-10 I10 Resting Blood Pressure:: 114/60 [place] [employer] Hypertension Guidelines: [place] [employer] Hypertension Guidelines. Normal BP Less than 120/80. Elevated BP 120/80. Hypertension Stage 1: BP 130-139/80-89. Hypertesnion Stage 2: BP 140 or higher/90 or higher. Hypertension Crisis: BP higher than 180/120 Peak Exercise Blood Pressure:: 140/52 Outcomes/Goals: Able to verbalize/achieve optimal blood pressure <130/80, Incorporates diet changes & exercise for blood pressure control by DC, Other additional outcomes/goals Interventions/plan: Instruct on optimal blood pressure, hypertension & medications, Instruct on effects of sodium, alcohol, stress, exercise &hypertension, Other additional plan/interventions 30 day Reassessments:: Progressing - Tobacco Cessation Referral Smoking Cessation Referral:: No Individual Education/Counseling:: No Education Schedule Given:: Yes Psychosocial - 60-Day Assess - VIsit Date of Eval: 08/11/20 Session #:: 21 History of previous Mental disease:: No - Target Goals Target Goals: Assess presence or absence of depression. Using a valid screening tool, maximizes coping skills. Positive support system - Psychosocial Test phq-9 Severity: Severity. 1-4 Minimal Depression. 5-9 Mild Depression. 10-14 Moderate Depression. 15-19 Moderately Sever Depression. 20-27 Severe Depression. Rule: - Outcomes/Goals: See list Psychosocial Outcomes/Goals:: ID's personal stressors & 2 strategies to manage stress by discharge, Other Additional outcome/goals: - 30-day Reassessments: 30 day Reassessments:: Progressing Patient Health Questionnaire 60-Day Re-eval Assessment 1. Little interest or pleasure in doing things: Several days 2. Feeling down, depressed, or hopeless: Not at all 3. Trouble falling or staying asleep, or sleeping too much: Not at all 4. Feeling tired or having little energy: Several days 5. Poor appetite or overeating: Not at all 6. Feeling bad about yourself -- or that you are a failure or have let yourself or your family down: Not at all 7. Trouble concentrating on things, such as reading the newspaper or watching television: Not at all 8. Moving or speaking so slowly that other people could have noticed. Or the opposite - being so fidgety or restless that you have been moving around a lot more than usual: Not at all 9. Thoughts that you would be better off , or of hurting yourself in some way: Not at all How difficult have these problems made it for you to do your work, take care of things at home, or get along with other people?: Not difficult at all Total Score: 2 Self-Efficacy 60-Day Re-eval Assessment We would like to know how confident you are in doing certain activities. Please select your confidence level for:: Select your confidence level for the following using the scale 1-10 where 1 is not at all confident and 10 is totally confident. Your score is the average of all 6 responses. Fatigue: How confident are you that you can keep the fatigue caused by your disease from interfering with the things you want to do? Select Number: 8 Physical Discomfort or Pain: How confident are you that you can keep the physical discomfort or pain of your disease from interfering with the things you want to do? Select Number: 8 Emotional Distress: How confident are you that you can keep the emotional distress caused by your disease from interfering with the things you want to do? Select Number: 10 Other Symptoms or Health Problems: How confident are you that you can keep other symptoms or health problems from interfering with the things you want to do? Select Number: 8 Different Tasks and Activities: How confident are you that you can do the different tasks and activities needed to manage your health condition so as to reduce your need to see a doctor? Select Number: 9 Medication: How confident are you that you can do things other than just taking medication to reduce how much your illness affects your everyday life? Select Number: 9 Total Score:: 8
[2020-08-11 08:12] VITALS: BP 114/60; BP 140/52; BMI 29.8
== END 2020-08-31 23:59 ==
LOC: CR 08:00
PROVIDERS: PCP Family Medicine; Referring Provider Internal Medicine Cardiovascular Disease; Visit Provider Internal Medicine Cardiovascular Disease
DX: I25.119 Atherosclerotic heart disease of native coronary artery with unspecified angina pectoris (principal); I65.23 Occlusion and stenosis of bilateral carotid arteries; I10 Essential (primary) hypertension; E78.5 Hyperlipidemia, unspecified; Z95.5 Presence of coronary angioplasty implant and graft
CPT/HCPCS: 93798

== ENCOUNTER → 2020-09-11 07:18 | Outpatient (CLI) | payer MEDICARE, SELFPAY ==
[2020-07-25 13:53] VITALS: BMI 29.9
[2020-08-11 08:12] VITALS: BMI 29.8
--- NOTE | 2020-09-11 08:34 | CDU_ITS ---
Reason For Study: BILAT CAROTID STENOSIS Rt. Velocities/BP Lt. Velocities/BP Prox CCA 97/15 cm/sec. Prox CCA 104/24 cm/sec. Mid CCA 79/16 cm/sec. Mid CCA 93./20 cm/sec. Dist CCA 88/24 cm/sec. Dist CCA 100/20 cm/sec. Prox ICA 100/29 cm/sec. Prox ICA 120/43 cm/sec. Mid ICA 125/40 cm/sec. Mid ICA 227/69 cm/sec. Dist ICA 133/40 cm/sec. Dist ICA 188/51 cm/sec. Rt. ICA/CCA = 1.5. Lt. ICA/CCA = 2.3. Prox ECA 134/17 cm/sec. Prox ECA 142/14 cm/sec. Rt. Vert. 47/14 cm/sec. Lt. Vert. 51/17 cm/sec. Right Extracranial There is homogeneous, smooth atherosclerotic plaque noted in the right common carotid artery. There is heterogeneous, irregular atherosclerotic plaque noted in the right internal carotid artery. There is homogeneous, smooth atherosclerotic plaque noted in the right external carotid artery. Antegrade flow is noted in the right vertebral artery. There is heterogeneous, irregular atherosclerotic plaque noted in the right bulb. Left Extracranial There is homogeneous, smooth atherosclerotic plaque noted in the left common carotid artery. There is heterogeneous, irregular atherosclerotic plaque noted in the left internal carotid artery. There is intimal thickening but no significant atherosclerotic plaque noted in the left external carotid artery. Antegrade flow is noted in the left vertebral artery. There is heterogeneous, irregular atherosclerotic plaque noted in the left bulb. Procedure Carotid Duplex [id number]. Exam performed in department. Interpretation Summary Irregular calcific plaque distal right common carotid and proximal right internal carotid artery. 50 to 69% stenosis right internal carotid artery Less than 50% stenosis right external carotid artery Irregular plaque at the proximal left internal carotid artery with 50 to 69% stenosis. (possibly closer to upper limits) Less than 50% stenosis left external carotid Patent and antegrade vertebrals bilaterally No change from the previous examination of January 27, 2020 Ordering Physician: King Villalpando Referring Physician: BO GRADY Performed By: Lynnette Judge, ULISSES, RVT
== END ==
PROVIDERS: PCP Family Medicine; Referring Provider Surgery; Visit Provider Surgery
DX: I65.23 Occlusion and stenosis of bilateral carotid arteries (principal)
CPT/HCPCS: 93880

== ENCOUNTER 2020-09-13 08:00 | Outpatient (RCR) | payer MEDICARE, SELFPAY ==
[2020-07-25 13:53] VITALS: BMI 29.9
[2020-08-11 08:12] VITALS: BMI 29.8
[2020-09-01 00:30] VITALS: BP 114/60; BP 140/52
--- NOTE | 2020-09-11 08:23 | PCM.CR.ITP ---
Exercise - 90-day Assessment - Visit Date of Eval: 09/11/20 Session #:: 31 - Physician Prescribed Exercise Modalities: Treadmill, Rower, Airdyne, NuStep Frequency: 3x/week for 12 weeks [36 sessions] Intensity: 60-80% of age predicted maximum heart rate reserve Current METSs:: 6.5 increased from 6.0 Target Heart Rate:: 100-130 Current RPE:: 12-13 Maximum Excercise HR:: 124 Resting Blood Pressure: 128/70 Maximum Exercise Blood Pressure: 160/60 EKG Type: NSR to sinus tachycardia - Outcomes & Goals Goals:: Verbalizes understanding of THR, RPE & goal METS by session 6, Documents in home exercise log/reports 30 min aerobic 5 day/wk by DC, Demonstrates accurate pulse taking by DC - Intervention & Plan Exercise Program Goals: Instruct on personal THR & RPE, Instruct on MET level & personal MET goal, Show patient to take own pulse /validate performance until accurate, Instruct on home exercise - 30-day Reassessments 30 day Reassessments:: Progressing - Physical Activity Home Exercise Physical Activity - Home Exercise: Safe Exercise, Warm-up, Self-monitoring, Cool-Down, Home Exercise > 30 min Daily, Sitting Time <3 hours/daily - Outcomes & Goals Outcomes/Goals: Demonstrates correct Warm-up/exercise Cool-Down (S3) if = 2.5 METs, Verbalizes symptoms of exercise intolerance by Session 3 (S3), Demonstrate safe equipment use (S3) & follows exercise prescrition (6) - Intervention & Plan Plan/Intervention: Instruct warm-up & cool-down if exercising at > 2 METs, Instruct on symptoms of exercise intolerance & actions to take, Instruct & monitor on saf, Assess intial functional capacity & safety risk - 30-day Reassessments 30 day Reassessments:: Progressing Nutrition - 90-Day Assessment - Program Goals Nutrition Program Goals: LDL <100 optimal. 100 - 129 Near optimal. 130 - 159 Borderline High. 160 - 189 High. Total Cholesterol <200 desirable. 200 - 239 Borderline High. >/= 240 High. HDL < 40 Low >/=60 High. Triglycerides <150 desirable. <199 optimal. VlDL 5 - 40. HgbA1C <7%. BMI <25 Patient has diagnosis of Hyperlipidemia (ICD E78)?: Yes - Visit Date of Assessment:: 09/11/20 Session #:: 31 - Cholesterol/Lipids Determine presence & major risk factors that modify LDL goal: Hypertension or hypertensive medication, Low HDL cholesterol <40 mg/dL*, Family history of premature CHD in Male < 55 years: female <65 yearsFa, Age men > 45 years; women >/= 55 years Outcomes/Goals: Pt IDs own risk factors & lifestyle modifications by Session 10, Verbalizes symptoms of angina & response by session 3., Pt independently manages Intervention/Plan: Instruct on personal lipid levels & lipid goals/NCEP guidelines, Instruct on cholesterol Referral to dietitian:: No - Patient declined NUtritional Services 30-day Reassessments:: Progressing - Diabetes (Other Core Measures) Diabetes Type: Not Applicable - Weight Mgt (Other Care) Not Applicable: Yes Height: 5 ft 10 in Weight:: 204 lb BMI: 29.2 Diagnosis Overweight/Obesity BMI> 30% ICD-10 E66: No Diagnosis High BMI/Morbid Obesity BMI> 35% ICD-10 Z68: No Outcomes/Goals: Pt sets, maintains & shows weight loss goal & trend during rehab Intervention/Plan: Instruct on ideal BMI & set weight loss goal w/patient, Assist pt to ID & incorporate diet changes for weight loss by S9, Encourage goal of using 250-300dcal per session for weight loss 30 day Reassessments:: Progressing - Healthy Eating Habits Will attend diet classes:: Yes Outcomes/Goals:: Consume diet rich in vegs,fruits,whole grain/high fiber,fish,lean meat, Limit sat/trans fats,cholesterol & added salts & sugars Intervention/Plan:: Assess current eating habits 30-day Reassessments:: Progressing Medical- 90-Day Assessment - Visit Date of Eval: 09/11/20 Session #:: 31 - Medication Compliance Preventative Medication(s):: Aspirin, Clopidogrel/P2Y12 inhibit, Statin/lipid, Beta seun H/O mental health issues: depression, anxiety, or addiction?: No Doesn?t believe in the benefits of treatment?: No Believes medications are unnecessary or harmful?: No Has a concern about medication side effects?: No Expresses concern over the cost of medications?: No Outcomes/Goals: Verbalizes medications,desired effect & common side effects @ DC, Pt self-reports following medication regimen, Keeps card in wallet w/medications listed by DC Interventions/plans: Instruct on medication effects & side effects, Review medication list w/patient every two weeks, Instruct importance of taking meds as ordered & assist problem solving 30-day Reassessments:: Progressing - Tobacco Use Tobacco Use: Non-smoker - Hypertension Hypertension Diagnosis:: Hypertension ICD-10 I10 Resting Blood Pressure:: 128/70 [place] [employer] Hypertension Guidelines: [place] [employer] Hypertension Guidelines. Normal BP Less than 120/80. Elevated BP 120/80. Hypertension Stage 1: BP 130-139/80-89. Hypertesnion Stage 2: BP 140 or higher/90 or higher. Hypertension Crisis: BP higher than 180/120 Peak Exercise Blood Pressure:: 160/60 Outcomes/Goals: Able to verbalize/achieve optimal blood pressure <130/80, Incorporates diet changes & exercise for blood pressure control by DC Interventions/plan: Instruct on optimal blood pressure, hypertension & medications, Instruct on effects of sodium, alcohol, stress, exercise &hypertension 30 day Reassessments:: Progressing - Tobacco Cessation Referral Smoking Cessation Referral:: No Individual Education/Counseling:: No Education Schedule Given:: Yes Psychosocial - 90-Day Assess - VIsit Date of Eval: 09/11/20 Session #:: 31 Not Applicable: Yes History of previous Mental disease:: No - Target Goals Target Goals: Assess presence or absence of depression. Using a valid screening tool, maximizes coping skills. Positive support system - Psychosocial Test Tool Used:: PHQ-9 Questionnaire phq-9 Severity: Severity. 1-4 Minimal Depression. 5-9 Mild Depression. 10-14 Moderate Depression. 15-19 Moderately Sever Depression. 20-27 Severe Depression. Rule: - Referral to Behavioral Health PS - Interventions: Yes Attend Stress Management Classes, No Referral to Behavioral Health if PHQ-9 score >9:, No Referral to [facility], No Referral to Physician if PHQ-9 if score is 5-9: - Outcomes/Goals: See list Psychosocial Outcomes/Goals:: ID's personal stressors & 2 strategies to manage stress by discharge - Intervention/Plan: See List Interventions/Plan:: Assess stressors,coping strategies & signs of derpression on admission, Instruct/assist pt to develop coping & personal stress Mgt strategies, Instruct patient to recognize signs & symptoms of depression, Instruct patient to recog - 30-day Reassessments: 30 day Reassessments:: Progressing Patient Health Questionnaire 90-Day Re-eval Assessment 1. Little interest or pleasure in doing things: Not at all 2. Feeling down, depressed, or hopeless: Not at all 3. Trouble falling or staying asleep, or sleeping too much: Not at all 4. Feeling tired or having little energy: Several days 5. Poor appetite or overeating: Not at all 6. Feeling bad about yourself -- or that you are a failure or have let yourself or your family down: Not at all 7. Trouble concentrating on things, such as reading the newspaper or watching television: Not at all 8. Moving or speaking so slowly that other people could have noticed. Or the opposite - being so fidgety or restless that you have been moving around a lot more than usual: Not at all 9. Thoughts that you would be better off , or of hurting yourself in some way: Not at all How difficult have these problems made it for you to do your work, take care of things at home, or get along with other people?: Not difficult at all Total Score: 1 Self-Efficacy 90-Day Re-eval Assessment We would like to know how confident you are in doing certain activities. Please select your confidence level for:: Select your confidence level for the following using the scale 1-10 where 1 is not at all confident and 10 is totally confident. Your score is the average of all 6 responses. Fatigue: How confident are you that you can keep the fatigue caused by your disease from interfering with the things you want to do? Select Number: 8 Physical Discomfort or Pain: How confident are you that you can keep the physical discomfort or pain of your disease from interfering with the things you want to do? Select Number: 8 Emotional Distress: How confident are you that you can keep the emotional distress caused by your disease from interfering with the things you want to do? Select Number: 10 Other Symptoms or Health Problems: How confident are you that you can keep other symptoms or health problems from interfering with the things you want to do? Select Number: 9 Different Tasks and Activities: How confident are you that you can do the different tasks and activities needed to manage your health condition so as to reduce your need to see a doctor? Select Number: 9 Medication: How confident are you that you can do things other than just taking medication to reduce how much your illness affects your everyday life? Select Number: 8 Total Score:: 8
[2020-09-11 08:28] VITALS: BP 128/70; BP 160/60; BMI 29.2
== END 2020-10-01 23:59 ==
LOC: CR 08:00
PROVIDERS: PCP Family Medicine; Referring Provider Internal Medicine Cardiovascular Disease; Visit Provider Internal Medicine Cardiovascular Disease
DX: I25.119 Atherosclerotic heart disease of native coronary artery with unspecified angina pectoris (principal); I65.23 Occlusion and stenosis of bilateral carotid arteries; I10 Essential (primary) hypertension; E78.5 Hyperlipidemia, unspecified; Z95.5 Presence of coronary angioplasty implant and graft
CPT/HCPCS: 93798

== ENCOUNTER → 2020-09-29 10:00 | Outpatient (CLI) | payer MEDICARE, SELFPAY ==
[2020-09-11 08:28] VITALS: BMI 29.2
[2020-09-21 12:31] VITALS: BMI 28.3
== END ==
PROVIDERS: PCP Nurse Practitioner Family; Referring Provider Internal Medicine Cardiovascular Disease; Visit Provider Internal Medicine Cardiovascular Disease
DX: R55 Syncope and collapse (principal)
CPT/HCPCS: 93225; 93226

== ENCOUNTER → 2020-10-02 09:32 | Outpatient (CLI) | payer MEDICARE, SELFPAY ==
[2020-09-11 08:28] VITALS: BMI 29.2
[2020-09-21 12:31] VITALS: BMI 28.3
--- NOTE | 2020-10-02 09:37 | ECHOD_ITS ---
Reason For Study: Arrhythmia Procedure This was a 2D Doppler, Color Flow transthoracic echocardiogram. Exam performed in department. Left Ventricle Normal LV size. Left ventricular systolic function is normal. The estimated ejection fraction is 65 %. Stage 1 diastolic dysfunction. Right Ventricle Normal RV size. Normal systolic function. Atria Normal left atrium. Normal right atrium. Mitral Valve Normal mitral valve. Tricuspid Valve Normal tricuspid valve. Aortic Valve Trisinus/trileaflet aortic valve. Mild focal aortic valve calcification. Pulmonic Valve Normal pulmonic valve. Great Vessels Normal aortic root. The pulmonary artery is normal size. Normal inferior vena cava. Pericardium/Pleural No pericardial effusion. MMode/2D Measurements & Calculations LVIDd: 4.8 cm IVSd: 1.2 cm Ao root diam: 3.8 cm LVIDs: 2.5 cm LVPWd: 0.99 cm LA dimension: 3.8 cm FS: 48.0 % LAV(MOD-bp): 52.5 ml LA A4 area: 21.1 cm2 RA A4 area: 14.3 cm2 LAV(MOD-bp) Indexed: 25.3 ml/m2 LAV(MOD-sp2): 40.0 ml LAV(MOD-sp4): 68.4 ml Time Measurements MV dec time: 0.23 sec Doppler Measurements & Calculations MV E max dayday: 89.6 cm/sec Lat Peak E' Dayday: 7.7 cm/sec Med Peak E' Dayday: 8.8 cm/sec MV A max dayday: 109.9 cm/sec E/E' lat: 11.7 E/E' med: 10.1 MV E/A: 0.82 MV V2 max: 113.9 cm/sec MV P1/2t max dayday: 105.5 cm/sec Ao V2 max: 144.9 cm/sec MV max P.2 mmHg MV P1/2t: 87.0 msec Ao max P.4 mmHg MV V2 mean: 65.6 cm/sec MV dec slope: 355.2 cm/sec2 MV mean P.0 mmHg MVA(P1/2t): 2.5 cm2 MV V2 VTI: 33.5 cm LV V1 max: 99.8 cm/sec PA V2 max: 124.2 cm/sec LV V1 max P.0 mmHg Interpretation Summary Normal LV size. Left ventricular systolic function is normal. The estimated ejection fraction is 65 %. Stage 1 diastolic dysfunction. Normal left atrium. Ordering Physician: Jd Nickerson Referring Physician: Juan Luis Lynn Performed By: Charly Vang RCS
== END ==
PROVIDERS: PCP Nurse Practitioner Family; Referring Provider Internal Medicine Cardiovascular Disease; Visit Provider Internal Medicine Cardiovascular Disease
DX: R55 Syncope and collapse (principal)
CPT/HCPCS: 93306

== ENCOUNTER 2020-11-19 17:34 | Observation (INO) | payer MEDICARE, SELFPAY ==
[2020-09-11 08:28] VITALS: BMI 29.2
[2020-10-27 15:53] VITALS: BMI 28.1
[2020-11-19] VITALS (9 sets, daily range): BP systolic 116–164; BP diastolic 58–85; PULSE 76–110; RESP 16–24; TEMP 36.6–37; O2SAT 92–98; BMI 30.9; BMI 28.0; BMI 28.1
--- NOTE | 2020-11-19 17:44 | EKG12_ITS ---
Test Reason : CP Blood Pressure : / mmHG Vent. Rate : 104 BPM Atrial Rate : 104 BPM P-R Int : 176 ms QRS Dur : 088 ms QT Int : 328 ms P-R-T Axes : 050 022 022 degrees QTc Int : 431 ms Sinus tachycardia Nonspecific T wave abnormality Abnormal ECG Confirmed by SHAHID POTTER, HUSSAIN ([id number]), book or script editor CODY YOON ([id number]) on 11/21/2020 9:01:21 AM Referred By: GERA Confirmed By:HUSSAIN KEY MD
--- NOTE | 2020-11-19 17:46 | RAD_ITS ---
STUDY: X-RAY CHEST REASON FOR EXAM: Male, 65 years old. Chest pain TECHNIQUE: Frontal view of the chest COMPARISON: 05/05/20 FINDINGS: The lungs are clear. There are no pleural effusions. There is no pneumothorax. The heart is normal in size. The visualized osseous structures are within normal limits. RAD/Chest 1 View (Portable) IMPRESSION: No acute thoracic pathology. Electronically Signed: Juliano Swenson MD at 18:13 EDT Tel , Service support ,
[2020-11-19 17:50] LABS: Absolute Lymphocyte Count 1.63 X10^3/uL (0.83-4.51); Absolute Neutrophil Count 3.5 X10^3/uL (2.0-7.7); Basophil# 0.04 X10^3/uL; Basophil% 0.7 % (0-1); Eosinophil# 0.25 X10^3/uL; Eosinophils% 4.2 % (0-5); Hematocrit 38.3 % (40-54); Hemoglobin 12.5 g/dL (13.0-16.5); Lymphocyte # 1.63 X10^3/ul (4.0); Lymphocyte % 27.5 % (19-41); Mean Corp Hgb Conc 32.6 g/dL (32-36); Mean Corpuscular Hgb 28.5 pg (27.0-32.0); Mean Corpuscular Volume 87.2 fL (80-94); Mean Platelet Vol. 9.9 fl (6.2-12.0); Monocyte# 0.48 X10^3/uL; Monocyte% 8.1 % (0-10); NRBC Flagged by Analyzer 0 % (0-5); Neutrophil % 59.2 % (47-70); Platelet Count 240 K/mm3 (150-450); RBC Distribution Width CV 12.8 % (11.6-14.6); RBC Distribution Width SD 40.5 fl (35.1-43.9); Red Blood Count 4.39 M/mm3 (4.6-6.2); White Blood Count 5.9 K/mm3 (4.4-11.0)
[2020-11-19] MEDS: Morphine 4 MG/ML Syringe IV (17:53)
[2020-11-19] MEDS: Ondansetron 4 MG/2 ML Vial IV (17:53)
--- NOTE | 2020-11-19 17:57 | ED.VISSUMM ---
- ER Visit Summary Date of Service: 11/19/20 Chief Complaint: Chest pain History of Present Illness: The patient is a 65 M presenting with chest pain. Patient states this started yesterday. He had an episode of chest pain that resolved with 1 nitro. He states around 11 AM today he began having midsternal chest pain again. He states this occasionally radiates to his right arm. He denies associated shortness of breath or nausea. He states pain is worsened with exertion. He took 2 baby aspirin prior to arrival. EMS gave an additional 2 baby aspirin. He tried another nitro prior to arrival which did not improve his pain. He has history of CAD, diabetes, hypertension, hypercholesterolemia. He has previous 2 stents. He is not a smoker. Physical Examination: Vitals are stable. Patient is afebrile. Alert no acute distress. HEENT exam is unremarkable. Neck is supple. Lungs are clear and equal bilaterally. Heart is regular rate and rhythm. Abdomen is soft nontender nondistended. Extremities are unremarkable. Skin is warm and dry. No focal neurologic deficit. Remainder of exam is unremarkable. Emergency Department Course and Treatment: Patient was given morphine, Zofran. EKG sinus tachycardia rate of 104 with lateral T wave inversion. Chest x-ray read by myself and radiology shows no acute process. CBC normal except hemoglobin 12.5. Chemistries show glucose 188, BUN 25. Troponin is negative. On reevaluation, patient is chest pain-free. Will discuss with hospitalist for observation Disposition: Observation Impression: Chest pain This note was generated with Bit[employer]imate dictation software. It may contain incorrect words, spelling, and punctuation that were not noted in review of the chart prior to signing ED Disposition - Plan for ED Patient: Disposition: Acute Care [facility]
[2020-11-19 19:05] LABS: Anion Gap 7 (5-15); BUN 25 mg/dL (7-18); Chloride 105 mmol/L (98-107); EST Glomerular Filtration Rate 79 mL/min (>60); Est Glom Filt Rate - Afr Amer 96 mL/min (>60); Estimated Creatinine Clearance 74.01 ml/min; Glucose 188 mg/dL (74-106); Potassium 3.9 mmol/L (3.5-5.1); Sodium Level 137 mmol/L (136-145)
--- NOTE | 2020-11-19 20:02 | HP.PCM_ITS ---
Problem List (1) Syncope Status: Resolved (2) Atherosclerotic heart disease of [place] coronary artery without angina pectoris Status: Chronic Qualifiers: [place] vs. transplanted heart: [place] heart Qualified Code(s): I25.10 - Atherosclerotic heart disease of [place] coronary artery without angina pectoris (3) History of coronary artery stent placement Status: Chronic Comment: PCI-RODDY-Mid LAD w/ 2.5 x 16 mm Synergy Stent and RODDY- Mid Ramus w/ 2.25 x 16 mm Synergy MR 01/20/2017; [id number]-Ipfgjl LCx w/ 2.25 x 08 mm Synergy MR Stent 05/10/2020 (4) Essential (primary) hypertension Status: Chronic (5) Hyperlipidemia Status: Chronic Qualifiers: Hyperlipidemia type: unspecified Qualified Code(s): E78.5 - Hyperlipidemia, unspecified (6) Bilateral carotid artery stenosis Status: Chronic (7) Chest pain Status: Acute History of Present Illness Date of Admission: 11/19/20 Chief Complaint: chest pain The patient is a 65 year old M with a significant history of CAD status post stent; obesity ; and type 2 diabetes who presents to the emergency department with episodic chest pain that started a day before presentation. His chest pain is substernal. It radiates to his right arm. His chest pain began a day before presentation. He associates his chest pain with walking. He describes chest pain as someone sitting on his chest. His chest pain worsens with exertion. He denies any ameliorating factors with chest pain. On the day before presentation he took nitroglycerin and his chest pain was resolved. Earlier on on the day of presentation he took nitroglycerin it also helped with his pain. However he had a second episode of chest pain on the day of presentation for which he took 2 tablets of nitroglycerin but received no relief. He described his chest pain as heaviness. Assisted with symptom is headaches. With the onset of his last episode of chest pain he took two tablets of baby aspirin. Paramedics also gave him additional 2 aspirins. Patient was in cardiac rehab and he was supposed to have a last session of the cardiac rehab. However he could not go for the last session because of syncope. He reports having about 5 episodes of syncope. His last episode of syncope was about a month ago. Past Medical History Past Medical History (Chronic Problems): Chronic Problems (Last Reviewed 11/19/20 @ 20:[address] Richie Bellamy MD) Atherosclerotic heart disease of [place] coronary artery without angina pectoris (Chronic) History of coronary artery stent placement (Chronic 05/10/20) PCI-RODDY-Mid LAD w/ 2.5 x 16 mm Synergy Stent and RODDY-Mid Ramus w/ 2.25 x 16 mm Synergy MR 01/20/2017; OWH-DEY-Xsojno LCx w/ 2.25 x 08 mm Synergy MR Stent 05/10/2020 Essential (primary) hypertension (Chronic) Hyperlipidemia (Chronic) Bilateral carotid artery stenosis (Chronic) Medical History: Medical History (Last Reviewed 11/19/20 @ 20:[address] Richie Bellamy MD) Syncope (Resolved) R55 Atherosclerotic heart disease of [place] coronary artery without angina pectoris (Chronic) I25.10 Essential (primary) hypertension (Chronic) I10 Hyperlipidemia (Chronic) E78.5 Bilateral carotid artery stenosis (Chronic) I65.23 BPH (benign prostatic hyperplasia) N40.0 Bilateral carotid artery stenosis I65.23 Carotid artery stenosis I65.29 DDD (degenerative disc disease) Elevated LFTs R79.89 Obesity E66.9 Sciatica M54.30 Type 2 diabetes mellitus E11.9 Allergies perfumes Allergy (Uncoded 11/19/20 17:43) unknown Home Medications: Ambulatory Orders Medication Instructions Recorded Aspirin E.C. [Ecotrin] 81 mg PO DAILY@0800 09/13/13 Amitriptyline HCl 150 mg PO QHS 02/08/15 omega 8-vbt-wug-fish oil 1,000 mg 1,000 mg PO QDAY cap 01/06/18 (120 mg-180 mg) capsule fluticasone propionate 50 1 spray INTRANASAL QODAY 30 Days 01/07/19 mcg/actuation nasal #16 g spray,suspension nitroglycerin 0.4 mg sublingual 0.4 mg SUBLINGUAL Q5M PRN #25 tab 01/07/19 tablet omeprazole 20 mg capsule,delayed 2 cap PO DAILY 75 Days #75 cap 01/07/19 release glimepiride 4 mg tablet 4 mg PO QAM 02/26/19 atorvastatin 20 mg tablet 20 mg PO QHS 30 Days #90 tab 07/03/20 clopidogrel 75 mg tablet 75 mg PO DAILY #90 tab 07/03/20 atenolol 50 mg tablet 50 mg PO DAILY tab 07/25/20 gabapentin 400 mg capsule 400 mg PO BID PRN 90 Days #180 cap 07/25/20 metformin 500 mg tablet,extended 1,000 mg PO BID tab 07/25/20 release 24 hr pioglitazone 15 mg tablet 15 mg PO QODAY 90 Days #90 tab 07/25/20 amlodipine 10 mg tablet 10 mg PO DAILY #30 tab 07/26/20 Surgical History: Surgical History (Last Reviewed 11/19/20 @ 20:[address] Richie Bellamy MD) History of coronary artery stent placement (Chronic) Onset Date: 05/10/20 Z95.5 PCI-RODDY-Mid LAD w/ 2.5 x 16 mm Synergy Stent and RODDY-Mid Ramus w/ 2.25 x 16 mm Synergy MR 01/20/2017; SFS-UXH-Hbcain LCx w/ 2.25 x 08 mm Synergy MR Stent 05/10/2020 History of cataract surgery Z98.49 History of hand surgery Z98.890 History of left heart catheterization Onset Date: 02/01/19 Z98.890 Hx of appendectomy Z98.890, Z90.49 Surgical History: angioplasty, appendectomy Smoking Status: Former smoker Tobacco Use: Chew - *Family History Maternal Family History: Family History (Last Reviewed 11/19/20 @ 20:[address] Richie Bellamy MD) Sister CAD (coronary artery disease) CVA (cerebral vascular accident) Diabetes Myocardial infarction Hx of CABG Mother Cancer Paternal Family History: Family History (Last Reviewed 11/19/20 @ 20:[address] Richie Bellamy MD) Sister CAD (coronary artery disease) CVA (cerebral vascular accident) Diabetes Myocardial infarction Hx of CABG Mother Cancer Review of Systems Constitutional: Denies: Chills, Fever, Weight Change HEENT: Denies: Head Aches, Sinus Congestion, Sinus Drainage Cardiovascular: Denies: Chest Pain, Palpitations Respiratory: Denies: Cough, Shortness of breath at rest, Sputum production Gastrointestinal: Denies: Abdominal Pain, Nausea, Vomiting Genitourinary: Denies: Dysuria Musculoskeletal: Reports: Back Pain, Joint Pain - knee pain. Denies: Joint Tenderness Skin: Denies: Rash, Wounds Neurological: Denies: Numbness, Tingling, Focal weakness Psychiatric: Denies: Anxiety, Depression, Homicidal Ideations, Suicidal Ideations Hematologic/ Lymphatic: Denies: Easy Bruising, Easy Bleeding VTE Information - Inpt Only VTE Present on Admission: No VTE Mechan Device Prophylaxis: SCD's VTE Pharm Prophylaxis ordered?: No Patient Problems: Active and Suspected Problems (Last Reviewed 11/19/20 @ 20:[address] Richie Bellamy MD) Chest pain (Acute) - Physical Exam Vitals/I&O's: Vital Signs Temp Pulse Resp BP Pulse Ox 98.6 F 94 16 122/79 H 92 11/19/20 17:35 11/19/20 19:45 11/19/20 19:45 11/19/20 19:45 11/19/20 19:45 Oxygen Delivery Method Room Air Weight: 97.9 kg Body Mass Index (BMI) 30.9 General: Alert, Oriented x3, Cooperative HEENT: Atraumatic, PERRLA, EOMI, Normocephalic Neck: Supple, No JVD, Negative Carotid Bruits Lungs: Clear to auscultation, Normal air movement Cardiovascular: Regular rate, No murmurs Abdomen: Bowel Sounds Present, Soft, Non Tender Extremities: No edema, Capillary Refill Less than 3 Seconds Skin: No rashes, No breakdown Musculoskeletal: No Tenderness to Palpation of Joints or Extremities Neurological: Cranial nerves II-XII grossly intact Psych/Mental Status: Normal Affect, Appropriate Laboratory Results 11/19/20 17:37: WBC 5.9, RBC 4.39 L, Hgb 12.5 L, Hct 38.3 L, MCV 87.2, MCH 28.5, MCHC 32.6, RDW Std Deviation 40.5, RDW Coeff of Megan 12.8, Plt Count 240, MPV 9.9, Immature Gran % (Auto) 0.300, Neut % (Auto) 59.2, Lymph % (Auto) 27.5, [place] % (Auto) 8.1, Eos % (Auto) 4.2, Baso % (Auto) 0.7, Absolute Neuts (auto) 3.5, Absolute Lymphs (auto) 1.63, Nucleated RBC % 0 11/19/20 17:37: Sodium 137, Potassium 3.9, Chloride 105, Carbon Dioxide 25.0, Anion Gap 7, BUN 25 H, Creatinine 1.00, Estim Creat Clear Calc 74.01, Est GFR (MDRD) Af Amer 96, Est GFR (MDRD) Non-Af 79, BUN/Creatinine Ratio 25.0 H, Glucose 188 H, Calcium 9.0, Troponin I < 0.015 Assessment/Plan All Active Problems (Last Reviewed 11/19/20 @ 20:[address] Richie Bellamy MD) Chest pain (Acute) Syncope (Resolved) Atherosclerotic heart disease [place] coronary artery w/angina pectoris (Resolved) The patient is a 65 year old M with a significant history of CAD status post stent; obesity ; and type 2 diabetes who presents emergency department with episodic chest pain. Chest Pain Place on a monitored bed at PCU Impression of chest x-ray by radiology: No acute thoracic pathology. Actual CXR image was independently visualized. No acute cardiopulmonary process was noted. Actual EKG tracing was independently visualized. EKG tracing showed subtle T wave inversions in leads V5 and V6. Old EKG was reviewed. Old EKG did not show this T wave inversions. Continue home aspirin and Plavix. Morphine as needed for pain ordered We will check lipid panel. Continue home statin Serial cardiac enzymes ordered Stat EKG as needed for chest pain Chemical stress test in the AM if the cardiac enzymes are negative. Patient report that following previous syncope he fell and injured bilateral knees and back so he is unsure of his ability to use treadmill. Review of records show that echocardiogram on 10/02/2020 had estimated ejection fraction of 65% with stage I diastolic dysfunction. Cardiac cath on 05/10/2020; successful PTCA/RODDY to PLCx. Hypertension Blood pressure is not within goal Continue home bp medication. Trend blood pressure and adjust blood pressure medications. Diabetes mellitus Patient with hyperglycemia on presentation Adjust home hypoglycemic regimen Patient will be kept n.p.o. for stress test in a.m. Accu-Chek Q6 hrs with correction scale insulin ordered. Morbid Obesity BMI: 31. Complicates care. Lifestyle modification recommended. Depression Amitriptyline continued Chronic pain Amitriptyline and gabapentin continued DVT prophylaxis ordered. SCD OBSV E&M: [id number] Initial observation care L3
--- NOTE | 2020-11-19 20:47 | EKG12_ITS ---
Test Reason : Blood Pressure : / mmHG Vent. Rate : 097 BPM Atrial Rate : 097 BPM P-R Int : 156 ms QRS Dur : 088 ms QT Int : 356 ms P-R-T Axes : 048 028 022 degrees QTc Int : 452 ms Normal sinus rhythm ST & T wave abnormality, consider anterolateral ischemia Abnormal ECG When compared with ECG of 20-NOV-2020 05:27, MANUAL COMPARISON REQUIRED, DATA IS UNCONFIRMED Confirmed by SHAHID POTTER, HUSSAIN ([id number]), newspaper photo editor CODY YOON ([id number]) on 11/21/2020 9:07:21 AM Referred By: GODWIN Confirmed By:HUSSAIN KEY MD
[2020-11-19 23:36] LABS: Bedside Glucose 163 mg/dL (70-110)
[2020-11-20] VITALS (27 sets, daily range): BP systolic 109–173; BP diastolic 70–116; PULSE 66–119; RESP 12–23; TEMP 36.2–37.1; O2SAT 93–100
--- NOTE | 2020-11-20 05:30 | EKG12_ITS ---
Test Reason : AM EKG Blood Pressure : / mmHG Vent. Rate : 072 BPM Atrial Rate : 072 BPM P-R Int : 176 ms QRS Dur : 088 ms QT Int : 394 ms P-R-T Axes : 030 007 -02 degrees QTc Int : 431 ms Normal sinus rhythm Normal ECG When compared with ECG of 19-NOV-2020 21:23, MANUAL COMPARISON REQUIRED, DATA IS UNCONFIRMED Confirmed by SHAHID POTTER, HUSSAIN ([id number]), electronic news gathering editor CODY YOON ([id number]) on 11/21/2020 9:08:37 AM Referred By: CONNIE Confirmed By:HUSSAIN KEY MD
[2020-11-20 05:41] LABS: Bedside Glucose 108 mg/dL (70-110)
[2020-11-20 06:46] LABS: Absolute Lymphocyte Count 1.41 X10^3/uL (0.83-4.51); Absolute Neutrophil Count 3.7 X10^3/uL (2.0-7.7); Basophil# 0.04 X10^3/uL; Basophil% 0.7 % (0-1); Eosinophil# 0.19 X10^3/uL; Eosinophils% 3.2 % (0-5); Hematocrit 36.4 % (40-54); Hemoglobin 11.8 g/dL (13.0-16.5); Lymphocyte # 1.41 X10^3/ul (4.0); Mean Corp Hgb Conc 32.4 g/dL (32-36); Mean Corpuscular Hgb 28.4 pg (27.0-32.0); Mean Corpuscular Volume 87.5 fL (80-94); Mean Platelet Vol. 9.7 fl (6.2-12.0); Monocyte# 0.47 X10^3/uL; NRBC Flagged by Analyzer 0 % (0-5); Neutrophil # 3.74 X10^3/uL (2.7-7.7); Neutrophil % 63.8 % (47-70); Platelet Count 198 K/mm3 (150-450); RBC Distribution Width CV 13.1 % (11.6-14.6); RBC Distribution Width SD 41.2 fl (35.1-43.9); Red Blood Count 4.16 M/mm3 (4.6-6.2); White Blood Count 5.9 K/mm3 (4.4-11.0)
[2020-11-20 07:12] LABS: Anion Gap 5 (5-15); BUN 18 mg/dL (7-18); BUN/Creat Ratio 24.7 RATIO (10-20); Chloride 108 mmol/L (98-107); Cholesterol 132 mg/dL (200); Creatinine, Serum 0.73 mg/dL (0.70-1.30); EST Glomerular Filtration Rate 114 mL/min (>60); Est Glom Filt Rate - Afr Amer 138 mL/min (>60); Estimated Creatinine Clearance 74.01 ml/min; Glucose 115 mg/dL (74-106); High Density Lipoprotein 48 mg/dL; Potassium 3.8 mmol/L (3.5-5.1); Sodium Level 138 mmol/L (136-145); Triglycerides 111 mg/dL; Very Low Density Lipoprotein 22 mg/dL (5-40)
--- NOTE | 2020-11-20 09:24 | CON.PCM_ITS ---
Reason for Consult Date of Consultation: 11/20/20 Reason for Consultation: Chest tightness History of Present Illness: The patient is a 65 year old M who presented to the emergency room with chest tightness. He did have some subtle EKG changes on presentation. He was undergoing a stress test today and developed chest tightness which eventually responded to 2 tablets of sublingual nitroglycerin. I was called to see him. He did have rather profound EKG changes. He is a 65-year-old male with a history of hypertension, hyperlipidemia, coronary artery disease who underwent cardiac catheterization in January 2019. It demonstrated a normal left main coronary artery, left anterior descending artery with a previously placed stent which was patent, first diagonal branch which was proximally occluded, circumflex artery with an ostial 60% stenosis, ramus intermedius with a previously placed stent which was patent in the right coronary artery which had mid and distal 40% stenosis. Medical therapy was recommended. He was placed on isosorbide. He continued to have headaches and so that was discontinued and Norvasc was added. He was in our office last month with continued complaints of chest pain. We did add Ranexa. This did not help. He underwent a diagnostic heart catheterization and had stenting done to his circumflex in May 2020. He also has a history of hypertension, hyperlipidemia, and carotid artery stenosis. He previously had a syncopal episode and underwent a 30-day event monitor in December 2019 which was normal, carotid ultrasound did not demonstrate any significant abnormality and a 24-hour Holter monitor demonstrated an average heart rate of 77 bpm no episodes of atrial or ventricular tachyarrhythmia noted. He has had no dizziness or diaphoresis no near syncope or syncope. Past Medical History Allergies/Adverse Reactions: Allergies perfumes Allergy (Uncoded 11/19/20 17:43) unknown Home Medications: Ambulatory Orders Medication Instructions Recorded Aspirin E.C. [Ecotrin] 81 mg PO DAILY@0800 09/13/13 Amitriptyline HCl 150 mg PO QHS 02/08/15 omega 8-qqm-ene-fish oil 1,000 mg 1,000 mg PO QDAY cap 01/06/18 (120 mg-180 mg) capsule nitroglycerin 0.4 mg sublingual 0.4 mg SUBLINGUAL Q5M PRN #25 tab 01/07/19 tablet glimepiride 4 mg tablet 4 mg PO QAM 02/26/19 atorvastatin 20 mg tablet 20 mg PO QHS 30 Days #90 tab 07/03/20 clopidogrel 75 mg tablet 75 mg PO DAILY #90 tab 07/03/20 metformin 500 mg tablet,extended 1,000 mg PO BID tab 07/25/20 release 24 hr pioglitazone 15 mg tablet 30 mg PO QODAY 90 Days #90 tab 07/25/20 amlodipine 10 mg tablet 10 mg PO DAILY #30 tab 07/26/20 Isosorbide DN [Isordil,Sorbtrate] 30 mg PO DAILY 11/20/20 Past Medical History (Chronic Problems): Chronic Problems (Last Reviewed 11/19/20 @ 20:[address] Richie Bellamy MD) Atherosclerotic heart disease of [place] coronary artery without angina pectoris (Chronic) History of coronary artery stent placement (Chronic 05/10/20) PCI-RODDY-Mid LAD w/ 2.5 x 16 mm Synergy Stent and RODDY-Mid Ramus w/ 2.25 x 16 mm Synergy MR 01/20/2017; [id number] LCx w/ 2.25 x 08 mm Synergy MR Stent 05/10/2020 Essential (primary) hypertension (Chronic) Hyperlipidemia (Chronic) Bilateral carotid artery stenosis (Chronic) Surgical History: angioplasty, appendectomy - *Family History Maternal Family History: Family History (Last Reviewed 11/19/20 @ 20:[address] Richie Bellamy MD) Sister CAD (coronary artery disease) CVA (cerebral vascular accident) Diabetes Myocardial infarction Hx of CABG Mother Cancer Paternal Family History: Family History (Last Reviewed 11/19/20 @ 20:[address] Richie Bellamy MD) Sister CAD (coronary artery disease) CVA (cerebral vascular accident) Diabetes Myocardial infarction Hx of CABG Mother Cancer Smoking Status: Never smoker Tobacco Use: Chew Review of Systems - Review of Systems General: Denies: Fever, Night Sweats, Fatigue HEENT: Denies: Vision Change Cardiovascular: Reports: Chest Discomfort, Chest Discomfort at Rest, Chest Discomfort with Exertion. Denies: Shortness of Breath, Orthopnea, PND, Peripheral Edema, Palpitations, Lightheadedness, Dizziness, Near Syncope, Syncope Respiratory: Denies: Cough, Sputum Production, Hemoptysis Gastrointestinal: Denies: Hematemesis, Hematochezia, Melena Genitourinary: Denies: Dysuria, Hematuria Skin: Denies: Rash Neurological: Denies: Dizziness Psychiatric: Denies: Anxiety Hematologic/ Lymphatic: Denies: Lymph Node Enlargement Subjectve: Pleasant gentleman in no distress Objective: Vital Signs Temp Pulse Resp BP Pulse Ox 97.1 F L 73 16 127/70 H 96 11/20/20 05:40 11/20/20 07:00 11/20/20 05:40 11/20/20 05:40 11/20/20 05:40 Oxygen Delivery Method Room Air Weight: 195 lb 12.328 oz Body Mass Index (BMI) 28.0 Intake and Output for Last 24 Hours 11/18/20 11/19/20 11/20/20 23:59 23:59 23:59 Intake Total / Balance General: Awake, Alert, Oriented x 3 HEENT: PERRL, EOMI, Sclera Non Icteric Neck: Supple, Good ROM, No Lymph Node Enlargement Lungs: Clear to auscultation Cardiovascular: Regular Rhythm, Normal S1, Normal S2, No Murmurs, No Rubs, No Gallops Vascular: No Carotid Bruits, Normal Femoral Pulses, Normal Radial Pulses, Normal Dorsalis Pedal Pulse, Normal Posterior Tibial Pulses Abdomen: Bowel Sounds Present, Soft, Non Tender, No HSM, No Organomegaly Extremities: No Cyanosis, No Clubbing, No edema, Moderate RLE Edema Musculoskeletal: No Erythema, No Tenderness Neurological: No Focal Motor or Sensory Deficit 11/19/20 17:37: WBC 5.9, RBC 4.39 L, Hgb 12.5 L, Hct 38.3 L, MCV 87.2, MCH 28.5, MCHC 32.6, Plt Count 240, MPV 9.9, Immature Gran % (Auto) 0.300, Neut % (Auto) 59.2, Lymph % (Auto) 27.5, [place] % (Auto) 8.1, Eos % (Auto) 4.2, Baso % (Auto) 0.7, Absolute Neuts (auto) 3.5, Nucleated RBC % 0 11/19/20 17:37: Sodium 137, Potassium 3.9, Chloride 105, Carbon Dioxide 25.0, Anion Gap 7, BUN 25 H, Creatinine 1.00, Est GFR (MDRD) Af Amer 96, Est GFR (MDRD) Non-Af 79, BUN/Creatinine Ratio 25.0 H, Glucose 188 H, Calcium 9.0, Troponin I < 0.015 11/19/20 21:03: Troponin I < 0.015 11/20/20 00:20: Troponin I < 0.015 11/20/20 06:14: Sodium 138, Potassium 3.8, Chloride 108 H, Carbon Dioxide 25.0, Anion Gap 5, BUN 18, Creatinine 0.73, Est GFR (MDRD) Af Amer 138, Est GFR (MDRD) Non-Af 114, BUN/Creatinine Ratio 24.7 H, Glucose 115 H, Calcium 9.0, Triglycerides 111, Cholesterol 132, LDL Cholesterol 62, VLDL Cholesterol 22, HDL Cholesterol 48 11/20/20 06:14: WBC 5.9, RBC 4.16 L, Hgb 11.8 L, Hct 36.4 L, MCV 87.5, MCH 28.4, MCHC 32.4, Plt Count 198, MPV 9.7, Immature Gran % (Auto) 0.300, Neut % (Auto) 63.8, Lymph % (Auto) 24.0, [place] % (Auto) 8.0, Eos % (Auto) 3.2, Baso % (Auto) 0.7, Absolute Neuts (auto) 3.7, Nucleated RBC % 0 Rhythm: EKG: Normal sinus rhythm with lateral T wave inversions noted Assessment/Plan 1. Atherosclerosis of [place] coronary artery of [place] heart. * Patient presents with chest discomfort and underwent a stress test with EKG changes. The full results of the nuclear portion are pending. * His chest discomfort is concerning enough however that I would recommend we consider a cardiac catheterization. * Addendum on cardiac catheterization * Demonstrated normal left main coronary artery * Left anterior descending artery with previously placed stent which is patent * Proximal circumflex artery with 90% stenosis * First obtuse marginal branch with no significant disease * Second obtuse marginal branch with proximal 90% stenosis * Third obtuse marginal branch with no significant disease * Ramus intermedius with 30% proximal stenosis * Right coronary artery with moderate disease but no high-grade stenosis * Based on the above angiographic findings would consider angioplasty and stenting to the circumflex artery. Will discuss with the interventionalist. 2. History of coronary artery stent placement Z95.5 PCI-RODDY-Mid LAD w/ 2.5 x 16 mm Synergy Stent and RODDY-Mid Ramus w/ 2.25 x 16 mm Synergy MR 01/20/2017; SLZ-DDL-Snmjyc LCx w/ 2.25 x 08 mm Sanjay MR Stent 05/10/2020 * He does have previous multiple stents as noted above. We would likely reevaluate the above during this hospitalization. * * 3. Syncope R55 He denies any reoccurring episodes since last office visit. At this time, this is thought related to uncontrolled blood sugar. He will continue current medical therapy. His Holter monitor did not reveal any significant bradycardia or pauses to explain. 4. Essential hypertension I10 Plan Patient's blood pressure is well-controlled. We will continue to monitor. We will not make any medication regimen changes. 5. Hyperlipidemia, unspecified hyperlipidemia type E78.5 Plan He states is being monitored by primary care physician he will continue current statin medication in the interim. He believes this will be repeated upcoming appointment with primary care provider. 6. Bilateral carotid artery stenosis I65.23 Plan His cardiothoracic ultrasound on 09/11/2020 showed right internal carotid artery with 50-69% stenosis and left internal carotid artery 50-69% stenosis. He denies any dizziness today. He will continue current medical therapy and we will continue to monitor. Thank you for allowing me to participate in the care of your patient. Please don't hesitate to call if any issues arise.
[2020-11-20] MEDS: Morphine 2 MG/ML Syringe IV (09:55)
[2020-11-20] MEDS: 0.9% Saline Lock 10 ML Syringe IV (09:55)
--- NOTE | 2020-11-20 10:15 | EKG12_ITS ---
Test Reason : CP ADMIT Blood Pressure : / mmHG Vent. Rate : 088 BPM Atrial Rate : 088 BPM P-R Int : 184 ms QRS Dur : 090 ms QT Int : 358 ms P-R-T Axes : 032 005 009 degrees QTc Int : 433 ms Normal sinus rhythm Nonspecific T wave abnormality Abnormal ECG When compared with ECG of 19-NOV-2020 17:42, MANUAL COMPARISON REQUIRED, DATA IS UNCONFIRMED Confirmed by SHAHID POTTER, HUSSAIN ([id number]), acquisition editor CODY YOON ([id number]) on 11/21/2020 9:09:28 AM Referred By: CONNIE Confirmed By:HUSSAIN KEY MD
[2020-11-20] MEDS: Nitroglycerin Infusion 250 ML 3 MG CONT INF (10:29)
--- NOTE | 2020-11-20 10:42 | CASEMGMT ---
RIAN CM Note: Insurance review for [facility] if transfer is recommended. [facility], [facility], [facility], [facility], [facility], [place]
[2020-11-20] MEDS: Aspirin 325 MG Tablet PO (11:02)
--- NOTE | 2020-11-20 11:11 | STRESSREP ---
Stress Test Report Pharmacologic myocardial perfusion stress test. 65-year-old male with a history of chest discomfort. Stress protocol: Resting EKG demonstrates normal sinus rhythm with a rate of 82 bpm normal intervals are noted resting blood pressure is 144/68 mmHg. 0.4 mg of regadenoson was infused per usual protocol followed by rapid intravenous saline flush injection continuous EKG monitoring was performed. The patient maintained sinus rhythm throughout the recording. At rest there were no ST or T wave changes noted to suggest ischemia. At peak infusion the patient developed approximately [address] depression noted in leads II, III and aVF and V4 and V5. The patient continued to have chest discomfort and required 2 sublingual nitroglycerin administered twice. There was improvement in the chest discomfort. The maximum heart rate was 104 bpm which was 67% of max impacted heart rate the maximum workload was 1 metabolic equivalent. The peak blood pressure was 160/82 mmHg. Myocardial perfusion protocol. 11.7 mCi of technetium 99m sestamibi was injected at rest. 0.4 mg of regadenoson was infused per usual protocol. At peak infusion 35.0 mCi of technetium 99m sestamibi was injected stress images were obtained stress and rest images were reconstructed and compared in the short axis vertical long horizontal long axis. Gated images were also obtained Perfusion SPECT analysis: Review of the stress images demonstrate normal uptake of tracer noted in all areas of the myocardium except for small portion of the mid inferior wall. The resting images similar demonstrate normal uptake of tracer noted in all areas of the myocardium. There is minimal ischemia noted in the mid inferior wall. Gated SPECT analysis: The gated ejection fraction is 78%. Conclusion: Mildly abnormal pharmacologic myocardial perfusion stress test with evidence of mid inferior ischemia. Chest discomfort noted EKG changes suggestive of abnormal flow reserve.
--- NOTE | 2020-11-20 11:58 | CASEMGMT ---
RIAN CAMARILLO Note: Intro role of CM to patient and BREWER form explained re: Observation status for treatment of chest pain/ heart cath. Explained hospitalization will be paid per insurance policy for Outpatient billing and condition will continue to be evaluated for Inpt necessity. Also let pt know that [facility] sends paper in the billing packet with their phone number if questions arise. Discussed Pharmacy section of BREWER form and self administered medication guideline. Pt verbalizes understanding and does not have further questions. Form signed and placed in chart, copy to pt. JORDEN MODI BSN CM
[2020-11-20 12:20] LABS: Bedside Glucose 172 mg/dL (70-110)
--- NOTE | 2020-11-20 13:17 | PCM.PN.HOSP ---
<Ramez Son - Last Filed: 11/20/20 13:17> Patient Problems: Active and Suspected Problems (Last Reviewed 11/19/20 @ 20:[address] Richie Bellamy MD) Chest pain (Acute) Subjective: Patient is a 65-year-old male who is alert and oriented x3. At time of my initial evaluation patient was returning from a cardiac stress test where he reexperienced episodes of chest pain that were nonresponsive to nitroglycerin. Patient was still in a severe amount of chest pain upon my exam, where he rated it at 10. Patient was also tremulous and experiencing numbness throughout his face and legs. Patient also complained of weakness although he was able to perform tasks when asked. Objective: Clinical Impression(s) from Imaging Studies Chest X-Ray 11/19/20 17:46 IMPRESSION: No acute thoracic pathology. Electronically Signed: Juliano Swenson MD at 18:13 EDT Tel , Service support , Vitals/I&O's: Vital Signs Temp Pulse Resp BP Pulse Ox 98.3 F 99 12 129/116 H 96 11/20/20 12:00 11/20/20 13:00 11/20/20 13:00 11/20/20 13:00 11/20/20 13:00 Oxygen Flow Rate (L/min) 2 Oxygen Delivery Method Nasal Cannula Weight: 195 lb 12.328 oz Body Mass Index (BMI) 28.0 Intake and Output for Last 24 Hours 11/18/20 11/19/20 11/20/20 23:59 23:59 23:59 Intake Total 220 / 220 37.55 / 37.55 Balance 220 / 220 37.55 / 37.55 General: Alert, Oriented x3, Cooperative HEENT: Atraumatic, PERRLA, EOMI, Normocephalic, - - Patient describes numbness across his face. Neck: Supple, No JVD, Negative Carotid Bruits Lungs: Clear to auscultation, Normal air movement Cardiovascular: Regular rate, No murmurs Abdomen: Bowel Sounds Present, Soft, Non Tender Extremities: No edema, Capillary Refill Less than 3 Seconds, - - Patient self reported to numbness in his lower legs bilaterally Skin: No rashes, No breakdown Musculoskeletal: No Tenderness to Palpation of Joints or Extremities Neurological: Cranial nerves II-XII grossly intact Psych/Mental Status: Normal Affect, Appropriate Laboratory Results 11/19/20 17:37: WBC 5.9, RBC 4.39 L, Hgb 12.5 L, Hct 38.3 L, MCV 87.2, MCH 28.5, MCHC 32.6, RDW Std Deviation 40.5, RDW Coeff of Megan 12.8, Plt Count 240, MPV 9.9, Immature Gran % (Auto) 0.300, Neut % (Auto) 59.2, Lymph % (Auto) 27.5, [place] % (Auto) 8.1, Eos % (Auto) 4.2, Baso % (Auto) 0.7, Absolute Neuts (auto) 3.5, Absolute Lymphs (auto) 1.63, Nucleated RBC % 0 11/19/20 17:37: Sodium 137, Potassium 3.9, Chloride 105, Carbon Dioxide 25.0, Anion Gap 7, BUN 25 H, Creatinine 1.00, Estim Creat Clear Calc 74.01, Est GFR (MDRD) Af Amer 96, Est GFR (MDRD) Non-Af 79, BUN/Creatinine Ratio 25.0 H, Glucose 188 H, Calcium 9.0, Troponin I < 0.015 11/19/20 21:03: Troponin I < 0.015 11/19/20 23:30: POC Glucose 163 H 11/20/20 00:20: Troponin I < 0.015 11/20/20 05:30: POC Glucose 108 11/20/20 06:14: Sodium 138, Potassium 3.8, Chloride 108 H, Carbon Dioxide 25.0, Anion Gap 5, BUN 18, Creatinine 0.73, Estim Creat Clear Calc 74.01, Est GFR (MDRD) Af Amer 138, Est GFR (MDRD) Non-Af 114, BUN/Creatinine Ratio 24.7 H, Glucose 115 H, Calcium 9.0, Triglycerides 111, Cholesterol 132, LDL Cholesterol 62, VLDL Cholesterol 22, HDL Cholesterol 48 11/20/20 06:14: WBC 5.9, RBC 4.16 L, Hgb 11.8 L, Hct 36.4 L, MCV 87.5, MCH 28.4, MCHC 32.4, RDW Std Deviation 41.2, RDW Coeff of Megan 13.1, Plt Count 198, MPV 9.7, Immature Gran % (Auto) 0.300, Neut % (Auto) 63.8, Lymph % (Auto) 24.0, [place] % (Auto) 8.0, Eos % (Auto) 3.2, Baso % (Auto) 0.7, Absolute Neuts (auto) 3.7, Absolute Lymphs (auto) 1.41, Nucleated RBC % 0 11/20/20 12:14: POC Glucose 172 H Current Medications Acetaminophen (Acetaminophen 325 Mg Tablet) 650 mg PO Q6H PRN PRN PRN Reason: HEADACHE Dextrose (Dextrose 50%-Water 25 Gm/50 Ml Disp.Syrin) 0 gm IV X1 PRN; Protocol PRN Reason: Hypoglycemia Glucagon (Glucagon 1 Mg/Ml Syringe) 1 mg IM .X1 PRN PRN Reason: Hypoglycemia Sodium Chloride () 250 mls @ 15 mls/hr IV .[id number] PRN PRN Reason: Saline Flush Sodium Chloride () 250 mls @ 15 mls/hr IV .[id number] PRN PRN Reason: Additional IVPB Infusion Nitroglycerin/Dextrose () 250 mls @ 3 mls/hr CONT INF .[id number] [facility]; Protocol Last Titration: 11/20/20 13:00 Dose: 5 mcg/min, 3 mls/hr Documented by: Sodium Chloride () 1,000 mls @ 0 mls/hr IV .Q0M [facility] Insulin Human Lispro (Insulin Lispro 100 Unit/Ml Insuln.Pen) 0 unit SC Q6 [facility]; Protocol Last Admin: 11/20/20 12:37 Dose: Not Given Documented by: Melatonin (Melatonin 3 Mg Tablet) 3 mg PO QHS PRN PRN PRN Reason: INSOMNIA Morphine Sulfate (Morphine 2 Mg/Ml Syringe) 2 mg IV Q3H PRN PRN PRN Reason: Pain Score 6-10 Last Admin: 11/20/20 09:55 Dose: 2 mg Documented by: Ondansetron HCl (Ondansetron 4 Mg/2 Ml Vial) 4 mg IV Q8H PRN PRN PRN Reason: NAUSEA/VOMITING Sodium Chloride (0.9% Saline Lock 10 Ml Syringe) 10 - 40 ml IV UD PRN PRN Reason: SALINE FLUSH Last Admin: 11/20/20 09:55 Dose: 10 ml Documented by: STROKE Vital Signs/Narrative: Vital Signs Temp Pulse Resp BP Pulse Ox 11/20/20 13:00 99 12 129/116 H 96 11/20/20 12:30 102 H 18 113/72 96 11/20/20 12:00 98.3 F 119 H 18 123/76 H 97 11/20/20 11:30 97 17 126/80 H 97 11/20/20 11:15 90 16 137/76 H 97 11/20/20 11:05 87 16 130/78 H 96 11/20/20 10:45 92 14 145/80 H 98 11/20/20 10:29 91 19 H 145/85 H 97 11/20/20 09:54 97.9 F 90 18 173/84 H 100 Medical Necessity - Tobacco Use Smoking Status: Never smoker Tobacco Use: Chew Assessment/Plan All Active Problems (Last Reviewed 11/19/20 @ 20:[address] Richie Bellamy MD) Chest pain (Acute) Syncope (Resolved) Atherosclerotic heart disease [place] coronary artery w/angina pectoris (Resolved) Patient is a 65-year-old male who was admitted to the PCU on 11/19/2020 for acute chest pain. Past medical history is significant for ASCVD status post coronary artery stent placement, essential hypertension, hyperlipidemia, bilateral carotid artery stenosis. At the time of my initial evaluation patient was experiencing active chest pain which he rated at a 10 in the setting of returning from a cardiac stress test. Patient routinely received 2 tablets of sublingual nitroglycerin, which brought him no resolution of his chest pain. Patient was tremulous upon my exam and endorsed numbness throughout his face and feet. Patient was alert and oriented x3, demonstrated no focal neural deficits, had a regular rate and rhythm, and had strong DP/PT pulses bilaterally. Stat EKG ordered and demonstrated T wave abnormalities suggestive of acute ischemia in V1 through V4. Infusion of nitroglycerin did gerald patient's chest pain. Cardiology was consulted and agreed that patient needed a cardiac catheterization, which was scheduled for the afternoon of 11/20/2020. Upon reevaluation, after administration of nitroglycerin infusion, patient reported resolution of chest pain and tremulousness and appeared markedly less anxious. Patient did still endorse numbness throughout his face and lower extremities bilaterally. Patient was alert and oriented x3, demonstrated no focal neural deficits, and most likely was experiencing numbness secondary to his active ischemia. Patient will remain admitted overnight. 1) Chest pain Assessment - Troponin not elevated throughout cycle - Lipid panel unremarkable - POC glucose unremarkable - Patients home medication regimen includes aspirin, clopidogrel, atorvastatin and amlodipine - Stat EKG ordered at time of chest pain demonstrated acute ischemia in V1 through V4 - Chest pain episode this morning most likely related to cardiac stress test - Pain amenable to nitroglycerin infusion Plan -Cardiac catheterization scheduled for the afternoon of 11/20/2020 -Continue nitroglycerin infusion 2) Hypertension Assessment - BP 129/116 on 11/20/2020 - Diastolic blood pressure not within goal Plan -Continue to monitor -Continue home BP regimen 3) DM2 Assessment - POC glucose 172 Plan - Accu-Chek every 6 with correction scale insulin ordered Patient seen by Ramez Son PA-C, under the supervision of Dr. Perez <Geno Perez - Last Filed: 11/20/20 14:19> Subjective: I agree with the above and the following is a representation of my independent history and physical examination Mr. Boss is currently feeling better than he had immediately following his stress test. It was reported verbally that his stress test was very abnormal and that he had chest pain and ST depression during his test. I placed him on a nitro drip and this has improved his pain to approximately 1 out of 10. I discussed the case with Dr. Nickerson and the plan is to take the patient to the [facility] later today. He currently complains of only a little bit of tingling and numbness in his feet and hands. It seems that this may be related to anxiety. He is also complaining of a headache. Vitals/I&O's: Vital Signs Temp Pulse Resp BP Pulse Ox 98.3 F 99 12 129/116 H 96 11/20/20 12:00 11/20/20 13:00 11/20/20 13:00 11/20/20 13:00 11/20/20 13:00 Oxygen Flow Rate (L/min) 2 Oxygen Delivery Method Nasal Cannula Weight: 88.8 kg Body Mass Index (BMI) 28.0 Intake and Output for Last 24 Hours 11/18/20 11/19/20 11/20/20 23:59 23:59 23:59 Intake Total 220 / 220 37.55 / 37.55 Balance 220 / 220 37.55 / 37.55 General: Alert, Oriented x3, Cooperative, Well developed, Well nourished, - - Peers to be in mild discomfort although reports that this is improving, nontoxic-appearing HEENT: Atraumatic, PERRLA, EOMI, Normocephalic, EAC Clear, - Oral: Moist Mucosa, No Gingival or Mucosal Lesions/ Ulcerations Neck: Supple, No JVD, Trachea Midline, Thyroid Normal Size and Texture Lungs: Clear to auscultation, Normal air movement, No rhonchi, No wheeze, No rales Cardiovascular: Regular rate, Regular Rhythm, Normal S1, Normal S2, No murmurs, No Ectopic Activity, No rub noted, No Gallop Abdomen: Bowel Sounds Present, Soft, Non Tender, Non-Distended, No hernias noted Extremities: No clubbing, No cyanosis, No edema, Capillary Refill Less than 3 Seconds, Peripheral Pulses Normal, - Skin: No rashes, No breakdown Musculoskeletal: No Tenderness to Palpation of Joints or Extremities, No Muscle Wasting Neurological: Cranial nerves II-XII grossly intact, Neuro grossly intact, Muscle tone normal, Coordination normal Psych/Mental Status: Normal Affect, Anxious Laboratory Results 11/19/20 17:37: WBC 5.9, RBC 4.39 L, Hgb 12.5 L, Hct 38.3 L, MCV 87.2, MCH 28.5, MCHC 32.6, RDW Std Deviation 40.5, RDW Coeff of Megan 12.8, Plt Count 240, MPV 9.9, Immature Gran % (Auto) 0.300, Neut % (Auto) 59.2, Lymph % (Auto) 27.5, [place] % (Auto) 8.1, Eos % (Auto) 4.2, Baso % (Auto) 0.7, Absolute Neuts (auto) 3.5, Absolute Lymphs (auto) 1.63, Nucleated RBC % 0 11/19/20 17:37: Sodium 137, Potassium 3.9, Chloride 105, Carbon Dioxide 25.0, Anion Gap 7, BUN 25 H, Creatinine 1.00, Estim Creat Clear Calc 74.01, Est GFR (MDRD) Af Amer 96, Est GFR (MDRD) Non-Af 79, BUN/Creatinine Ratio 25.0 H, Glucose 188 H, Calcium 9.0, Troponin I < 0.015 11/19/20 21:03: Troponin I < 0.015 11/19/20 23:30: POC Glucose 163 H 11/20/20 00:20: Troponin I < 0.015 11/20/20 05:30: POC Glucose 108 11/20/20 06:14: Sodium 138, Potassium 3.8, Chloride 108 H, Carbon Dioxide 25.0, Anion Gap 5, BUN 18, Creatinine 0.73, Estim Creat Clear Calc 74.01, Est GFR (MDRD) Af Amer 138, Est GFR (MDRD) Non-Af 114, BUN/Creatinine Ratio 24.7 H, Glucose 115 H, Calcium 9.0, Triglycerides 111, Cholesterol 132, LDL Cholesterol 62, VLDL Cholesterol 22, HDL Cholesterol 48 11/20/20 06:14: WBC 5.9, RBC 4.16 L, Hgb 11.8 L, Hct 36.4 L, MCV 87.5, MCH 28.4, MCHC 32.4, RDW Std Deviation 41.2, RDW Coeff of Megan 13.1, Plt Count 198, MPV 9.7, Immature Gran % (Auto) 0.300, Neut % (Auto) 63.8, Lymph % (Auto) 24.0, [place] % (Auto) 8.0, Eos % (Auto) 3.2, Baso % (Auto) 0.7, Absolute Neuts (auto) 3.7, Absolute Lymphs (auto) 1.41, Nucleated RBC % 0 11/20/20 12:14: POC Glucose 172 H Current Medications Acetaminophen (Acetaminophen 325 Mg Tablet) 650 mg PO Q6H PRN PRN PRN Reason: HEADACHE Dextrose (Dextrose 50%-Water 25 Gm/50 Ml Disp.Syrin) 0 gm IV X1 PRN; Protocol PRN Reason: Hypoglycemia Glucagon (Glucagon 1 Mg/Ml Syringe) 1 mg IM .X1 PRN PRN Reason: Hypoglycemia Sodium Chloride () 250 mls @ 15 mls/hr IV .[id number] PRN PRN Reason: Saline Flush Sodium Chloride () 250 mls @ 15 mls/hr IV .[id number] PRN PRN Reason: Additional IVPB Infusion Nitroglycerin/Dextrose () 250 mls @ 3 mls/hr CONT INF .[id number] [facility]; Protocol Last Titration: 11/20/20 13:00 Dose: 5 mcg/min, 3 mls/hr Documented by: Sodium Chloride () 1,000 mls @ 0 mls/hr IV .Q0M [facility] Insulin Human Lispro (Insulin Lispro 100 Unit/Ml Insuln.Pen) 0 unit SC Q6 [facility]; Protocol Last Admin: 11/20/20 12:37 Dose: Not Given Documented by: Melatonin (Melatonin 3 Mg Tablet) 3 mg PO QHS PRN PRN PRN Reason: INSOMNIA Morphine Sulfate (Morphine 2 Mg/Ml Syringe) 2 mg IV Q3H PRN PRN PRN Reason: Pain Score 6-10 Last Admin: 11/20/20 09:55 Dose: 2 mg Documented by: Ondansetron HCl (Ondansetron 4 Mg/2 Ml Vial) 4 mg IV Q8H PRN PRN PRN Reason: NAUSEA/VOMITING Sodium Chloride (0.9% Saline Lock 10 Ml Syringe) 10 - 40 ml IV UD PRN PRN Reason: SALINE FLUSH Last Admin: 11/20/20 09:55 Dose: 10 ml Documented by: STROKE Vital Signs/Narrative: Vital Signs Temp Pulse Resp BP Pulse Ox 11/20/20 13:00 99 12 129/116 H 96 11/20/20 12:30 102 H 18 113/72 96 11/20/20 12:00 98.3 F 119 H 18 123/76 H 97 11/20/20 11:30 97 17 126/80 H 97 11/20/20 11:15 90 16 137/76 H 97 11/20/20 11:05 87 16 130/78 H 96 11/20/20 10:45 92 14 145/80 H 98 11/20/20 10:29 91 19 H 145/85 H 97 Assessment/Plan ASSESSMENT ACS Mild normocytic anemia and chronic/stable HTN HPL DM-2 CAD Bilateral carotid artery stenosis BPH Depression/anxiety History of syncope PLAN -Stress test is abnormal with EKG changes and perfusion abnormalities -Per discussion with Dr. Nickerson patient is to go to the [facility] today--> suspect patient will need intervention via PCI -Lipids were done and LDL was 132/HDL was 48 -Increase to full dose statin -Full dose of aspirin given today and will continue 81 mg daily starting tomorrow -Start Coreg 3.125 for BP and heart rate control -New antiemetics -If blood pressure tolerates patient of Coreg we will add lisinopril tomorrow -Check Hemoglobin A1c -Continue nitro drip -Suspect addition of Brilinta versus Plavix by cardiology -Metformin Inpatient E&M: [id number] Subs Hosp L3
--- NOTE | 2020-11-20 15:34 | CL.D_ITS ---
Patient Name: PRESTON BATES Study Date: 11/20/2020 Performing: Jd Nickerson MD Ht: 70.07 inches 178 cm : 1955 Wt: 196.21 lbs 89 kg Age: 65 Gender: male BSA: 2.07 PROCEDURE(S) PERFORMED [id number] W OR WO PTCA, SINGLE CORONARY ARTERY CLINICAL PROFILE AND INDICATIONS Indications: Suspected CAD Heart Failure: None CAD Presentations: Unstable angina. CONCLUSIONS Previously placed stents in the left left anterior descending artery and ramus intermedius are patent .Previously placed stents in the left left anterior descending artery and ramus intermedius are paten t. RECOMMENDATIONS Referred for immediate PCI DESCRIPTION OF PROCEDURE The patient arrived to the procedure lab. The risks and benefits of the procedure as well as a full d escription of our services here and current unavailability of surgical backup were fully explained to the patient and/or their significant other prior to the catheterization. The Timeout was completed, verifying the correct patient and procedure. The patient's procedural site was prepped and draped in the usual fashion. Local anesthetic was given subcutaneously to right radial region with Lidocaine 2% . Using a modified Seldinger technique, arterial access was obtained via the right radial artery, a 6 Fr sheath was inserted. Right Coronary Artery selective angiography was performed in multiple views using a 5 Fr. 4.0 [place] catheter. Left Coronary Artery selective angiography was performed in multipl e views using a 5 Fr. 4.0 [place] catheter. Left Ventriculography was performed in SUAREZ projection using a 5 Fr. [place] catheter. LV to AO pullback pressures were then recorded. CORONARY ANGIOGRAPHY DOMINANCE: Right Dominant LEFT HEART ASSESSMENT Left Ventricular Ejection Fraction: by LV Gram 60 % Normal LV wall motion LEFT MAIN: No significant disease noted LEFT ANTERIOR DESCENDING ARTERY: MID LAD: Previously placed stent is patent DIAGONAL 1: Ostial - 50 % Stenosis CIRCUMFLEX ARTERY: PROX CIRC: 90 % Stenosis OM 1: Proximal - Mild luminal irregularities OM 2: Proximal - 90 % Stenosis OM 3: Proximal - Mild luminal irregularities RAMUS: Previously placed stent is patent, 40 % Stenosis RIGHT CORONARY ARTERY: PROX RCA: Moderate luminal irregularities up to 50% MID RCA: Mild luminal irregularities COMPLICATIONS PROCEDURE MEDICATIONS Fentanyl 50 mcg IV Versed 1 mg IV Versed 1 mg IV Oxygen: 2 L/min via nasal cannula Heparin diluted in 23cc Heparinized saline. Patient given 10cc IA of this solution. 11/20/2020 14:43: 41 Heparin 6000 unit(s) IV 11/20/2020 15:16:47 Nitro 100 mcg IC 11/20/2020 15:26:44 Plavix 75 mg PO 11/20/2020 14:40:59 Verapamil 2.5mg, Ntg 100mcgs, 2000 units of Heparin diluted in 23cc Heparinized saline. Patient give n 10cc IA of this solution. 11/20/2020 14:43:41 SUMMARY OF HEMODYNAMIC DATA Time AIR REST ECG 14:30:23 AO 125/62 (82) SA 14:44:50 LV 133/5, 9 15:01:34 LV 136/6, 9 15:01:41 LV 137/10, 13 15:02:37 LVp 140/11, 15 15:02:44 AOp 148/83 (113) 15:02:49 Signed By Jd Nickerson MD On 11/20/2020 3:33:25 PM Jd Nickerson MD
--- NOTE | 2020-11-20 16:00 | EKG12_ITS ---
Test Reason : AM EKG Blood Pressure : / mmHG Vent. Rate : 076 BPM Atrial Rate : 076 BPM P-R Int : 186 ms QRS Dur : 088 ms QT Int : 392 ms P-R-T Axes : 061 029 012 degrees QTc Int : 441 ms Normal sinus rhythm Normal ECG When compared with ECG of 20-NOV-2020 16:17, MANUAL COMPARISON REQUIRED, DATA IS UNCONFIRMED Confirmed by CHANG POTTER, MERI ([id number]), state editor LEONEL HELTON ([id number]) on 11/23/2020 12:43:50 PM Referred By: Confirmed By:KARI DOWNING MD
[2020-11-20] MEDS: 0.9% Normal Saline 1,000 ML 60 ML IV (16:21)
[2020-11-20 16:45] LABS: Bedside Glucose 120 mg/dL (70-110)
[2020-11-20] MEDS: Atorvastatin Calcium 80 MG Tablet PO (21:17)
[2020-11-20] MEDS: Carvedilol 3.125 MG TABLET PO (21:17)
[2020-11-20] MEDS: Insulin Lispro 100 UNIT/ML INSULN.PEN SC (21:19)
[2020-11-20 22:10] LABS: Bedside Glucose 190 mg/dL (70-110)
[2020-11-21] VITALS (7 sets, daily range): BP systolic 114–133; BP diastolic 67–72; PULSE 71–97; RESP 18; TEMP 36.5–36.8; O2SAT 93–94
[2020-11-21] MEDS: Acetaminophen 325 MG Tablet 650 MG PO ×2 (00:12→06:39)
--- NOTE | 2020-11-21 05:43 | CRPHASE1 ---
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 Cardiac rehabilitation programs are recognized as integral to the continued care of the patient with coronary heart disease. The cardiac rehabilitation program is designed to optimize a patient's physical, psychological, and social functioning. Health family member caretaker work in cardiac rehabilitation programs and assist you with getting the treatments you need to get stronger and healthier - like exercise, healthy eating habits, and medications. Cardiac rehabilitation has been show to help people with heart problems live longer and have better life enjoyment than people who do not go to cardiac rehabilitation. Please contact the Cardiac Rehabilitation Program at [facility] at in two weeks if you have not heard from them.
--- NOTE | 2020-11-21 05:44 | CRPH1.INSTRU ---
General Education CAD and cardiac anatomy and function:: Patient communicates acknowledgment Explanation of diagnoses and procedures:: Patient communicates acknowledgment Sign/Symptoms of CO:: Patient communicates acknowledgment Antiplatelet therapy: Patient communicates acknowledgment Proper use of NTG-SL: Patient communicates acknowledgment Emergency procedures and activation of EMS: Patient communicates acknowledgment Compliance of all prescribed medications: Patient communicates acknowledgment Dyslipidemia Patient Dyslipidemia Risk Factors Are:: Total Cholesterol, Triglycerides, HDL, LDL Recommendations Include:: Lipid profile not available, Reviewed NCEP/ATP guidelines, Therapeutic Lifestyle Change dietary guidelines Dyslipidemia Response Code:: Patient communicates acknowledgment Overweight/Obesity Patient Overweight/Obesity Risk Factors Are:: Overweight = 26-29 Recommendations Include:: Weight loss of 5-10%, Reduced calorie diet, Exercise 5-7 times/week Overweight/Obesity:: Patient communicates acknowledgment Hypertension Recommendations Include:: Maintain BP <130/85, DASH dietary guidelines, Decrease/maintain normal body weight Hypertension:: Patient communicates acknowledgment Heart Disease Patient Heart Disease Risk Factors Are:: Family history of heart disease < 65 years old, Previous cardiac event Recommendations Include:: Educated family members of their risk, Educated family members of importance of prevention of heart disease Heart Disease Response Code:: Patient communicates acknowledgment
[2020-11-21 05:48] LABS: AST(SGOT) 26 U/L (15-37); Alanine Aminotransfer ALT/SGPT 30 U/L (16-61); Albumin, Serum 3.6 g/dL (3.2-5.0); Alkaline Phosphatase 99 U/L (45-117); Anion Gap 7 (5-15); BUN 14 mg/dL (7-18); BUN/Creat Ratio 17.4 RATIO (10-20); Calcium,Total 8.6 mg/dL (8.5-10.1); Chloride 105 mmol/L (98-107); EST Glomerular Filtration Rate 102 mL/min (>60); Est Glom Filt Rate - Afr Amer 123 mL/min (>60); Estimated Creatinine Clearance 92.52 ml/min; Globulin 3.5 g/dL (2.2-4.2); Glucose 137 mg/dL (74-106); Potassium 3.6 mmol/L (3.5-5.1); Protein, Total 7.1 g/dL (6.4-8.2); Sodium Level 137 mmol/L (136-145)
[2020-11-21 06:55] LABS: Absolute Lymphocyte Count 1.28 X10^3/uL (0.83-4.51); Absolute Neutrophil Count 3.8 X10^3/uL (2.0-7.7); Basophil# 0.02 X10^3/uL; Basophil% 0.3 % (0-1); Eosinophil# 0.11 X10^3/uL; Eosinophils% 1.9 % (0-5); Hematocrit 36.7 % (40-54); Lymphocyte # 1.28 X10^3/ul (4.0); Lymphocyte % 22.3 % (19-41); Mean Corp Hgb Conc 32.7 g/dL (32-36); Mean Corpuscular Hgb 28.9 pg (27.0-32.0); Mean Corpuscular Volume 88.4 fL (80-94); Monocyte# 0.54 X10^3/uL; Monocyte% 9.4 % (0-10); NRBC Flagged by Analyzer 0 % (0-5); Neutrophil # 3.77 X10^3/uL (2.7-7.7); Neutrophil % 65.9 % (47-70); Platelet Count 222 K/mm3 (150-450); Red Blood Count 4.15 M/mm3 (4.6-6.2); White Blood Count 5.7 K/mm3 (4.4-11.0)
[2020-11-21 07:01] LABS: Bedside Glucose 125 mg/dL (70-110)
[2020-11-21 07:26] LABS: Hemoglobin A1c 7.5 % (3.8-5.6)
--- NOTE | 2020-11-21 09:02 | PN.CARD_ITS ---
Subjectve: Patient seen and evaluated. Appears to be doing better this morning. No chest pain. Objective: Vital Signs Temp Pulse Resp BP Pulse Ox 98.2 F 71 18 133/67 H 93 11/21/20 06:30 11/21/20 07:00 11/21/20 06:30 11/21/20 06:30 11/21/20 07:31 Oxygen Flow Rate (L/min) 2 Oxygen Delivery Method Room Air Weight: 195 lb 12.328 oz Body Mass Index (BMI) 28.0 Intake and Output for Last 24 Hours 11/19/20 11/20/20 11/21/20 23:59 23:59 23:59 Intake Total 220 / 220 894.80 / 1134.80 240 / 240 Balance 220 / 220 894.80 / 1134.80 240 / 240 General: Awake, Alert, Oriented x 3 HEENT: PERRL, EOMI, Sclera Non Icteric Neck: Supple, Good ROM, No Lymph Node Enlargement Lungs: Clear to auscultation Cardiovascular: Regular Rhythm, Normal S1, Normal S2, No Murmurs, No Rubs, No Gallops 11/21/20 05:22: Hemoglobin A1c 7.5 H 11/21/20 05:22: WBC 5.7, RBC 4.15 L, Hgb 12.0 L, Hct 36.7 L, MCV 88.4, MCH 28.9, MCHC 32.7, Plt Count 222, MPV 10.0, Immature Gran % (Auto) 0.200, Neut % (Auto) 65.9, Lymph % (Auto) 22.3, Kerr % (Auto) 9.4, Eos % (Auto) 1.9, Baso % (Auto) 0.3, Absolute Neuts (auto) 3.8, Nucleated RBC % 0 11/21/20 05:22: Sodium 137, Potassium 3.6, Chloride 105, Carbon Dioxide 25.0, Anion Gap 7, BUN 14, Creatinine 0.80, Est GFR (MDRD) Af Amer 123, Est GFR (MDRD) Non-Af 102, BUN/Creatinine Ratio 17.4, Glucose 137 H, Calcium 8.6, Total Bilirubin 0.30 Rhythm: EKG: ECHO: Stress Test: Cardiac Cath: PCI: CT Surgery: Holter monitor: EPS: PPM: CXR: Chest CT Scan: Medical Necessity - Tobacco Use Smoking Status: Never smoker Tobacco Use: Chew Assessment/Plan 1. Atherosclerosis of [place] coronary artery of [place] heart. * Patient presents with chest discomfort and underwent a stress test with EKG changes. The full results of the nuclear portion are pending. * * His cardiac catheterization * Demonstrated normal left main coronary artery * Left anterior descending artery with previously placed stent which is patent * Proximal circumflex artery with 90% stenosis * First obtuse marginal branch with no significant disease * Second obtuse marginal branch with proximal 90% stenosis * Third obtuse marginal branch with no significant disease * Ramus intermedius with 30% proximal stenosis * Right coronary artery with moderate disease but no high-grade stenosis * Based on the above angiographic findings he underwent angioplasty and stenting of the circumflex artery and this morning is pain-free and is doing well. 2. History of coronary artery stent placement Z95.5 PCI-RODDY-Mid LAD w/ 2.5 x 16 mm Synergy Stent and RODDY-Mid Ramus w/ 2.25 x 16 mm Synergy MR 01/20/2017; [id number]-Ihfctq LCx w/ 2.25 x 08 mm Synergy MR Stent 05/10/2020 * He does have previous multiple stents as noted above. * * 3. Syncope R55 He denies any reoccurring episodes since last office visit. At this time, this is thought related to uncontrolled blood sugar. He will continue current medical therapy. His Holter monitor did not reveal any significant bradycardia or pauses to explain. 4. Essential hypertension I10 Plan Patient's blood pressure is well-controlled. We will continue to monitor. We will not make any medication regimen changes. 5. Hyperlipidemia, unspecified hyperlipidemia type E78.5 Plan He states is being monitored by primary care physician he will continue current statin medication in the interim. He believes this will be repeated upcoming appointment with primary care provider. 6. Bilateral carotid artery stenosis I65.23 Plan His cardiothoracic ultrasound on 09/11/2020 showed right internal carotid artery with 50-69% stenosis and left internal carotid artery 50-69% stenosis. He denies any dizziness today. He will continue current medical therapy and we will continue to monitor. Thank you for allowing me to participate in the care of your patient. Please don't hesitate to call if any issues arise. He can be discharged for outpatient follow-up in my office. Will arrange follow-up. Cardiac rehabilitation to be instituted.
[2020-11-21] MEDS: Lisinopril 2.5 MG Tablet PO (09:31)
[2020-11-21] MEDS: Aspirin E.C. 81 MG Tablet PO (09:31)
[2020-11-21] MEDS: Carvedilol 3.125 MG TABLET PO (09:31)
--- NOTE | 2020-11-21 10:00 | EKG12_ITS ---
Test Reason : PCI Blood Pressure : / mmHG Vent. Rate : 073 BPM Atrial Rate : 073 BPM P-R Int : 170 ms QRS Dur : 086 ms QT Int : 376 ms P-R-T Axes : 044 039 026 degrees QTc Int : 414 ms Normal sinus rhythm with sinus arrhythmia Normal ECG When compared with ECG of 20-NOV-2020 10:25, MANUAL COMPARISON REQUIRED, DATA IS UNCONFIRMED Confirmed by CHANG POTTER, MERI ([id number]), advertising editor LEONEL HELTON ([id number]) on 11/23/2020 12:44:46 PM Referred By: SHAHID Confirmed By:KARI DOWNING MD
[2020-11-21] MEDS: Insulin Lispro 100 UNIT/ML INSULN.PEN SC (11:23)
--- NOTE | 2020-11-21 11:32 | CL.I_ITS ---
Patient Name: PRESTON BATES Study Date: 11/20/2020 Performing: Blanka Cabrales MD Ht: 70 inches 178 cm : 1955 Wt: 196.5 lbs 89 kg Age: 65 Gender: male BSA: 2.07 PROCEDURE(S) PERFORMED [id number] W OR WO PTCA, SINGLE CORONARY ARTERY [id number], EACH ADD'L CORONARY ART, SAME MAJOR CLINICAL PROFILE AND CO-MORBIDITIES Indications: Suspected CAD Heart Failure: None CAD Presentations: Unstable angina. CONCLUSIONS Successful RODDY to pLCx and PTCA alone to OM2 RECOMMENDATIONS DESCRIPTION OF PROCEDURE The patient arrived to the procedure lab. The risks and benefits of the procedure as well as a full d escription of our services here and current unavailability of surgical backup were fully explained to the patient and/or their significant other prior to the catheterization. The Timeout was completed, verifying the correct patient and procedure. The patient's procedural site was prepped and draped in the usual fashion. Local anesthetic was given subcutaneously to right radial region with Lidocaine 2% Using a modified Seldinger technique,arterial access was obtained via the right radial artery, a 6Fr sheath was inserted. Right Coronary Artery selective angiography was performed in multiple views usi ng a 5 Fr. 4.0 Hensley catheter. Left Coronary Artery selective angiography was performed in multiple v iews using a 5 Fr. 4.0 Hensley catheter. Left Ventriculography was performed in SUAREZ projection using a 5 Fr. Pigtail catheter. LV to AO pullback pressures were then recorded. 6F XB3 Guide catheter was inserted and engaged into the LCA. BMW Guide wire was advanced to the C ircumflex. Angiogram performed pre balloon dilatation. Emerge 2.0x12 Balloon catheter was advanced ac ross lesion in the circumflex, proximal. PTCA balloon inflated at 6 atms for 12 secs. Angiogram perfo rmed post balloon dilatation. 1.5x15 emerge Balloon catheter was advanced across lesion in the second obtuse marginal, proximal PTCA balloon inflated at 14 atms for 20 secs. PTCA balloon inflated at 14 atms for 12 secs. 2.5 x 12 Synergy Drug Eluting stent was advanced across the lesion in the circumfle x, proximal. Angiogram performed post stent deployment. 2.5 x 8 NC Emerge Balloon catheter was advanc ed across lesion in the circumflex, proximal. Angiogram performed post stent deployment. The arteri al sheath was pulled and a TR Band was applied for hemostasis INTERVENTION INFORMATION LESION SITE: Circumflex (Proximal) Lesion Complexity: High/C, chronic total occlusion: No, lesion at bifurcation: Yes, thrombus present: No, lesion length: 8 mm, culprit lesion: Yes, Previously treated lesion: No Pre Stenosis: 95 % Pre intervention SHARRI flow: 3 PROCEDURE: Drug Eluting Stent with pre and post dilatation Post Stenosis: 0 % Post intervention SHARRI flow: 3 Lesion Devices: Zavaleta .014 BMW Lyman Straight 190cm Cardinal 6 Fr XB3.0 100cm Guide Catheter Nicola Sci EMERGE MR 2.00x12 BALLOON Nicola Sci Synergy MR RODDY 2.50x12 Nicola Sci NC EMERGE MR 2.50x08 BALLOON LESION SITE: 2nd OM (Proximal) Lesion Complexity: High/C, chronic total occlusion: No, lesion at bifurcation: No, thrombus present: No, lesion length: 25 mm, culprit lesion: Yes, Previously treated lesion: No Pre Stenosis: 95 % Pre intervention SHARRI flow: 2 PROCEDURE: Balloon Angioplasty The vessel was too small for stent placement and PTCA alone was performed Post Stenosis: 60 % Post intervention SHARRI flow: 3 Lesion Devices: Zavaleta .014 BMW Lyman Straight 190cm Cardinal 6 Fr XB3.0 100cm Guide Catheter Nicola Sci EMERGE MR 1.50x15 BALLOON COMPLICATIONS No Complications PROCEDURE MEDICATIONS Fentanyl 50 mcg IV Versed 1 mg IV Versed 1 mg IV Oxygen: 2 L/min via nasal cannula Heparin diluted in 23cc Heparinized saline. Patient given 10cc IA of this solution. 11/20/2020 14:43: 41 Heparin 6000 unit(s) IV 11/20/2020 15:16:47 Nitro 100 mcg IC 11/20/2020 15:26:44 Plavix 75 mg PO 11/20/2020 14:40:59 Verapamil 2.5mg, Ntg 100mcgs, 2000 units of Heparin diluted in 23cc Heparinized saline. Patient give n 10cc IA of this solution. 11/20/2020 14:43:41 IV Bolus: .9 NaCl 500 ml total 11/20/2020 15:46:28 SUMMARY OF HEMODYNAMIC DATA Time AIR REST ECG 14:30:23 AO 125/62 (82) SA 14:44:50 LV 133/5, 9 15:01:34 LV 136/6, 9 15:01:41 LV 137/10, 13 15:02:37 LVp 140/11, 15 15:02:44 AOp 148/83 (113) 15:02:49 Signed By Blanka Cabrales MD On 11/21/2020 11:31:28 Blanka Cabrales MD
--- NOTE | 2020-11-21 11:44 | PCM.DC ---
- Discharge Diagnoses Current Active Problems: Current Active and Chronic Problems (Last Reviewed 11/19/20 @ 20:[address] Richie Bellamy MD) Chest pain (Acute) Atherosclerotic heart disease of [place] coronary artery without angina pectoris (Chronic) History of coronary artery stent placement (Chronic 11/20/20) PCI-RODDY-Mid LAD w/ 2.5 x 16 mm Synergy Stent and RODDY-Mid Ramus w/ 2.25 x 16 mm Synergy MR 01/20/2017; [id number]-[id number]-Vwxojy LCx w/ 2.25 x 08 mm Synergy MR Stent 05/10/2020; VGK-FHD-Kysj LCx w/ 2.5 x 12 mm Synergy Stent 11/20/20 Essential (primary) hypertension (Chronic) Hyperlipidemia (Chronic) Bilateral carotid artery stenosis (Chronic) You will use the following diet at home:: No restrictions Your food should be the consistency of: Regular Your liquids should be the consistency of: Regular/Thin Discharge Activity: Return to Normal Activity Allergies/Adverse Reactions: Allergies perfumes Allergy (Uncoded 11/19/20 17:43) unknown Medications to take at Discharge Aspirin E.C. [Ecotrin] 81 mg PO DAILY@0800 09/13/13 Amitriptyline HCl 150 mg PO QHS 02/08/15 omega 9-omr-oiu-fish oil 1,000 mg (120 mg-180 mg) capsule 1,000 mg PO QDAY cap 01/06/18 nitroglycerin 0.4 mg sublingual tablet 0.4 mg SUBLINGUAL Q5M PRN #25 tab 01/07/19 glimepiride 4 mg tablet 4 mg PO QAM 02/26/19 metformin 500 mg tablet,extended release 24 hr 1,000 mg PO BID tab 07/25/20 pioglitazone 15 mg tablet 30 mg PO QODAY 90 Days #90 tab 07/25/20 Isosorbide DN [Isordil] 30 mg PO DAILY 11/20/20 Atorvastatin Calcium 80 mg PO DAILY #30 tablet 11/21/20 Carvedilol [Coreg] 3.125 mg PO BID 30 Days #60 tablet 11/21/20 Lisinopril [Zestril] 2.5 mg PO DAILY #30 tablet 11/21/20 Ticagrelor [Brilinta] 90 mg PO BID #60 tablet 11/21/20 The following prescriptions were given: Atorvastatin Calcium 80 mg PO DAILY #30 tablet Transmission Status: Pending to [facility] Ticagrelor [Brilinta] 90 mg PO BID #60 tablet Transmission Status: Pending to [facility] Carvedilol [Coreg] 3.125 mg PO BID 30 Days #60 tablet Transmission Status: Pending to [facility] Lisinopril [Zestril] 2.5 mg PO DAILY #30 tablet Transmission Status: Pending to [facility] Orders to be completed after discharge: Phase II, Outpatient Cardiac Rehab Location: None Selected Primary Care Physician: Juan Luis Lynn NP, [employer] [NON-STAFF] - Please follow up with your Primary Care Physician in: Within the next two weeks Test Results: Test results from this visit will be discussed in further detail at your follow-up appointment, if applicable. Please Follow Up With: Jd Shah When: Within the next two weeks Proposed Discharge Date: 11/21/20
[2020-11-21 11:51] LABS: Bedside Glucose 178 mg/dL (70-110)
--- NOTE | 2020-11-21 12:02 | PCM.DC.SUM ---
<Ramez Son - Last Filed: 11/21/20 12:02> Discharge Date and Diagnosis - Problem List Patient Problems: Active and Suspected Problems (Last Reviewed 11/19/20 @ 20:[address] Richie Bellamy MD) Chest pain (Acute) Date of Admission: 11/19/20 Date of Discharge: 11/21/20 - Primary Discharge Diagnosis Acute Problems: Active Problems (Last Reviewed 11/19/20 @ 20:[address] Richie Bellamy MD) Chest pain (Acute) - Secondary Discharge Diagnosis Chronic Problems: Chronic Problems (Last Reviewed 11/19/20 @ 20:[address] 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 Electronically Signed: Juliano Swenson MD at 18:13 EDT Tel , Service support , Operations: None Procedures: Cardiac catheterization, EKG, Nuclear stress test Summary of Care Provided: Patient is a 65-year-old male who was admitted to the PCU on 11/19/2020 for acute chest pain. Past medical history is significant for ASCVD status post coronary artery stent placement, essential hypertension, hyperlipidemia, bilateral carotid artery stenosis. Today, patient reports resolution of his symtpoms at admission to include chest/arm pain, face and LE extremity numbness and SOB. Patient denies palpitations, fever, chills, N/V/D/. During stay in the hospital patient had a EKG that demonstrated T-wave abnormalities, no elevation in troponins, active ischemia that was non responsive to nitro during a cardiac stress test and an urgent cardiac catheterization which resulted in stents being placed in the left circumflex artery and angioplasty to the obtuse marginal artery. Patient will be managed by Dr. Nickerson as an outpatient and is to follow up with him in the next two weeks. Summary of management and changes to medications listed below. 1) Chest pain secondary to atherosclerosis of eek coronary artery Assessment - Troponin not elevated throughout cycle - Lipid panel unremarkable - Unremarkable telemetry monitoring overnight - Successful stenting of the proximal circumflex artery and angioplasty of the second obtuse marginal branch. Plan - Coreg, Brilinta, and Lisinopril added to outpatient medication regimen - Atorvastain incareased to 80mg PO Daily - Clopidogrel stopped on discharge and will be resumed on 12/23/2020 - Brilinta initiated and will be stopped on 12/22/2020 - Follow up with Dr. Nickerson on discharge 2) Hypertension Assessment - BP 129/116 on 11/20/2020 - Diastolic blood pressure not within goal Plan -Amlodipine discontinued on discharge - Lisinopril initiated on discharge 3) DM2 Assessment - POC glucose 178 - HgbA1C 7.5, not within goal Plan - Home diabetes regimen resumed at discharge. - Follow up with Primary care provider within the next two weeks. 4) Hyperlipidemia Assessment - Managed outpatient by PCP Plan - Atorvastatin increased to 80mg PO daily Patient seen by Ramez Son PA-C, under the supervision of Dr. Perez Patient Problems: Active and Suspected Problems (Last Reviewed 11/19/20 @ 20:[address] Richie Bellamy MD) Chest pain (Acute) Subjective: Patient is a 65 y/o male who is resting comfortably in bed and is A&O x3. Patient reports resolution of his symptoms to include chest/arm pain and numbness throughout his face and LE extremities bilaterally. Patient denies Fever, Chills, N/V/D, SOB and palpitations. Objective: Clinical Impression(s) from Imaging Studies Chest X-Ray 11/19/20 17:46 IMPRESSION: No acute thoracic pathology. Electronically Signed: Juliano Swenson MD at 18:13 EDT Tel , Service support , - Physical Exam Vitals/I&O's: Vital Signs Temp Pulse Resp BP Pulse Ox 97.9 F 97 18 130/72 H 94 11/21/20 09:24 11/21/20 09:24 11/21/20 09:24 11/21/20 09:24 11/21/20 09:24 Oxygen Flow Rate (L/min) 2 Oxygen Delivery Method Room Air Weight: 195 lb 12.328 oz Body Mass Index (BMI) 28.0 Intake and Output for Last 24 Hours 11/19/20 11/20/20 11/21/20 23:59 23:59 23:59 Intake Total 220 / 220 894.80 / 1134.80 240 / 240 Balance 220 / 220 894.80 / 1134.80 240 / 240 General: Alert, Oriented x3, Cooperative HEENT: Atraumatic, PERRLA, EOMI, Normocephalic Neck: Supple, No JVD, Negative Carotid Bruits Lungs: Clear to auscultation, Normal air movement Cardiovascular: Regular rate, No murmurs Abdomen: Bowel Sounds Present, Soft, Non Tender Extremities: No edema, Capillary Refill Less than 3 Seconds Skin: No rashes, No breakdown Musculoskeletal: No Tenderness to Palpation of Joints or Extremities Neurological: Cranial nerves II-XII grossly intact Psych/Mental Status: Normal Affect, Appropriate Laboratory Results 11/20/20 12:14: POC Glucose 172 H 11/20/20 16:23: POC Glucose 120 H 11/20/20 21:16: POC Glucose 190 H 11/21/20 05:22: Hemoglobin A1c 7.5 H 11/21/20 05:22: WBC 5.7, RBC 4.15 L, Hgb 12.0 L, Hct 36.7 L, MCV 88.4, MCH 28.9, MCHC 32.7, RDW Std Deviation 42.0, RDW Coeff of Megan 13.0, Plt Count 222, MPV 10.0, Immature Gran % (Auto) 0.200, Neut % (Auto) 65.9, Lymph % (Auto) 22.3, [place] % (Auto) 9.4, Eos % (Auto) 1.9, Baso % (Auto) 0.3, Absolute Neuts (auto) 3.8, Absolute Lymphs (auto) 1.28, Nucleated RBC % 0 11/21/20 05:22: Sodium 137, Potassium 3.6, Chloride 105, Carbon Dioxide 25.0, Anion Gap 7, BUN 14, Creatinine 0.80, Estim Creat Clear Calc 92.52, Est GFR (MDRD) Af Amer 123, Est GFR (MDRD) Non-Af 102, BUN/Creatinine Ratio 17.4, Glucose 137 H, Calcium 8.6, Total Bilirubin 0.30, AST 26, ALT 30, Alkaline Phosphatase 99, Total Protein 7.1, Albumin 3.6, Globulin 3.5, Albumin/Globulin Ratio 1.0 11/21/20 06:32: POC Glucose 125 H 11/21/20 11:21: POC Glucose 178 H Current Medications Acetaminophen (Acetaminophen 325 Mg Tablet) 650 mg PO Q6H PRN PRN PRN Reason: HEADACHE Last Admin: 11/21/20 06:39 Dose: 650 mg Documented by: Aspirin (Aspirin E.C. 81 Mg Tablet) 81 mg PO DAILY@0800 [facility] Last Admin: 11/21/20 09:31 Dose: 81 mg Documented by: Atorvastatin Calcium (Atorvastatin Calcium 80 Mg Tablet) 80 mg PO QHS [facility] Last Admin: 11/20/20 21:17 Dose: 80 mg Documented by: Atropine Sulfate (Atropine Sulfate 1 Mg/10 Ml Syringe) 0.5 mg IV UD PRN PRN Reason: HR <50 bpm Carvedilol (Carvedilol 3.125 Mg Tablet) 3.125 mg PO BID [facility] Last Admin: 11/21/20 09:31 Dose: 3.125 mg Documented by: Clopidogrel Bisulfate (Clopidogrel Bisulfate 75 Mg Tablet) 75 mg PO DAILY [facility] Dextrose (Dextrose 50%-Water 25 Gm/50 Ml Disp.Syrin) 0 gm IV X1 PRN; Protocol PRN Reason: Hypoglycemia Glucagon (Glucagon 1 Mg/Ml Syringe) 1 mg IM .X1 PRN PRN Reason: Hypoglycemia Heparin Sodium (Beef Lung) (Heparin Lock 500 Unit/5 Ml In 10 Ml Syringe) 500 unit IV UD PRN PRN Reason: HEPARIN FLUSH Sodium Chloride () 250 mls @ 15 mls/hr IV .[id number] PRN PRN Reason: Saline Flush Sodium Chloride () 250 mls @ 15 mls/hr IV .[id number] PRN PRN Reason: Additional IVPB Infusion Sodium Chloride () 1,000 mls @ 0 mls/hr IV .Q0M JEFFREY Sodium Chloride () 1,000 mls @ 60 mls/hr IV .[id number] [facility] Last Admin: 11/21/20 09:26 Dose: Not Given Documented by: Insulin Human Lispro (Insulin Lispro 100 Unit/Ml Insuln.Pen) 0 unit SC ACHS [facility]; Protocol Last Admin: 11/21/20 11:23 Dose: 1 u Documented by: Labetalol HCl (Labetalol (Prefilled) 20 Mg/4 Ml) 5 mg IV X1 PRN PRN Reason: SBP >160 when pulling sheath Stop: 11/22/20 15:51 Lisinopril (Lisinopril 2.5 Mg Tablet) 2.5 mg PO DAILY [facility] Last Admin: 11/21/20 09:31 Dose: 2.5 mg Documented by: Melatonin (Melatonin 3 Mg Tablet) 3 mg PO QHS PRN PRN PRN Reason: INSOMNIA Morphine Sulfate (Morphine 2 Mg/Ml Syringe) 2 mg IV Q3H PRN PRN PRN Reason: Pain Score 6-10 Last Admin: 11/20/20 09:55 Dose: 2 mg Documented by: Ondansetron HCl (Ondansetron 4 Mg/2 Ml Vial) 4 mg IV Q8H PRN PRN PRN Reason: NAUSEA/VOMITING Sodium Chloride (0.9% Saline Lock 10 Ml Syringe) 10 - 40 ml IV UD PRN PRN Reason: SALINE FLUSH Last Admin: 11/20/20 09:55 Dose: 10 ml Documented by: Sodium Chloride (0.9% Normal Saline 500 Ml Iv.Soln.) 500 ml IV BOLUS PRN PRN Reason: VASO-VAGAL PROTOCOL Discharge Diet: No Restrictions Discharge Activity: Return to Normal Activity Home Medications: Medications to take at Discharge Aspirin E.C. [Ecotrin] 81 mg PO DAILY@0800 09/13/13 Amitriptyline HCl 150 mg PO QHS 02/08/15 omega 6-imt-oax-fish oil 1,000 mg (120 mg-180 mg) capsule 1,000 mg PO QDAY cap 01/06/18 nitroglycerin 0.4 mg sublingual tablet 0.4 mg SUBLINGUAL Q5M PRN #25 tab 01/07/19 glimepiride 4 mg tablet 4 mg PO QAM 02/26/19 metformin 500 mg tablet,extended release 24 hr 1,000 mg PO BID tab 07/25/20 pioglitazone 15 mg tablet 30 mg PO QODAY 90 Days #90 tab 07/25/20 Isosorbide DN [Isordil] 30 mg PO DAILY 11/20/20 Atorvastatin Calcium 80 mg PO DAILY #30 tablet 11/21/20 Carvedilol [Coreg] 3.125 mg PO BID 30 Days #60 tablet 11/21/20 Lisinopril [Zestril] 2.5 mg PO DAILY #30 tablet 11/21/20 Ticagrelor [Brilinta] 90 mg PO BID #60 tablet 11/21/20 Following Prescriptions Were Given to Patient: Atorvastatin Calcium 80 mg PO DAILY #30 tablet Transmission Status: Received by [facility] Ticagrelor [Brilinta] 90 mg PO BID #60 tablet Transmission Status: Received by [facility] Carvedilol [Coreg] 3.125 mg PO BID 30 Days #60 tablet Transmission Status: Received by [facility] Lisinopril [Zestril] 2.5 mg PO DAILY #30 tablet Transmission Status: Received by [facility] Other Amb Orders: Phase II, Outpatient Cardiac Rehab Location: None Selected Primary Care Physician: Juan Luis Lynn NP, MANAGER OF [employer]ELOPMENT-[employer] [NON-STAFF] - Please follow up with your Primary Care Physician in: Within the next two weeks Please Follow Up With: Jd Shah When: Within the next two weeks Disposition: Home Minutes spent on discharge:: 35 Patient Condition:: Stable Medical Necessity - Tobacco Use Smoking Status: Never smoker Tobacco Use: Chew Meaningful Use Info Meaningful Use Diagnoses (Choose all that apply): None applicable - AMI/Post PCI/Angioplasty Aspirin given w/in 24hrs of arrival?: Yes ASA at discharge?: Yes Antiplatelet Therapy at Discharge:: Yes Statins at discharge?: Yes Joshua/ARB at discharge?: Yes Beta Kevin at discharge?: Yes <Geno Perez - Last Filed: 11/21/20 14:28> Discharge Date and Diagnosis - Primary Discharge Diagnosis Acute Problems: Active Problems (Last Reviewed 11/19/20 @ 20:[address] Richie Bellamy MD) Chest pain (Acute) - Secondary Discharge Diagnosis Chronic Problems: Chronic Problems (Last Reviewed 11/19/20 @ 20:[address] 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 Mr. Boss is a 65-year-old male with a past medical history of coronary artery disease status post stent, obesity, type 2 diabetes, hyperlipidemia, and hypertension who presented to the emergency department [facility] on 11/19/2020 complaining of chest pain. At that time he reported that he had substernal pain that radiated to his right arm and the pain began the day prior to presentation. He stated that it worsened with exertion and it felt like someone was sitting on his chest. He took nitro on the day prior to presentation for the pain and this resolved his symptoms, though on the day of admission he had pain and took 2 nitroglycerin tablets and had no symptom relief. He took 2 baby aspirin prior to calling the paramedics he was also given 2 aspirin by the paramedics prior to arrival in the ED. Upon admission to the emergency department his labs were overall fairly unremarkable. His troponins were negative x2. And a stress test was ordered. The stress test the patient had mild abnormal pharmacological myocardial perfusion with evidence of inferior ischemia. He noted chest discomfort at the time of the stress test and he had EKG changes that were suggestive of abnormal flow serve with ST depression in leads II, III, aVF, V4, and V5. He took 2 sublingual nitro at that time and his chest discomfort improved. Upon return to his room the patient had recurrent chest pain and was placed on a nitroglycerin drip, given a full dose aspirin, beta-kevin was initiated, and further discussion with cardiology was had and the decision was made to take the patient to the [facility] later that day. His diagnostic catheterization revealed a significant lesion in the proximal left circumflex and a RODDY was placed at that time. He did well through the night. Lisinopril 2.5 mg was initiated and per discussion with Dr. Nickerson Brilinta 90 mg twice daily for 1 month was initiated. After that 1 month time the patient is to revert to Plavix. He will be discharged on an aspirin, Brilinta, low-dose lisinopril, Coreg 3.25 mg twice daily, and atorvastatin 80 mg. His hemoglobin A1c was noted to be 7.5 and I encouraged him to discuss with his primary care physician about better glycemic control. His atorvastatin may be able to be decreased with time. He is to follow-up with Dr. Nickerson as directed and with his primary care doctor within 1 week. Discharge diagnoses NSTEMI Mild anemia Hypertension Hyperlipidemia Coronary artery disease [id number] Bilateral carotid artery stenosis BPH Depression Anxiety History of syncope Charge time greater than 35 minutes Subjective: Patient reports that he is feeling much letter today and has had resolution of all symptoms he was having yesterday. - Physical Exam Vitals/I&O's: Vital Signs Temp Pulse Resp BP Pulse Ox 97.9 F 97 18 130/72 H 94 11/21/20 09:24 11/21/20 09:24 11/21/20 09:24 11/21/20 09:24 11/21/20 09:24 Oxygen Flow Rate (L/min) 2 Oxygen Delivery Method Room Air Weight: 88.8 kg Body Mass Index (BMI) 28.0 Intake and Output for Last 24 Hours 11/19/20 11/20/20 11/21/20 23:59 23:59 23:59 Intake Total 220 / 220 894.80 / 1134.80 480 / 480 Balance 220 / 220 894.80 / 1134.80 480 / 480 General: Alert, Oriented x3, Cooperative, No apparent distress, Well developed, Well nourished HEENT: Atraumatic, PERRLA, EOMI, Normocephalic, EAC Clear Oral: Moist Mucosa, No Gingival or Mucosal Lesions/ Ulcerations Neck: Supple, No JVD, Trachea Midline, Thyroid Normal Size and Texture Lungs: Clear to auscultation, Normal air movement, No rhonchi, No wheeze, No rales Cardiovascular: Regular rate, Regular Rhythm, Normal S1, Normal S2, No murmurs, No Ectopic Activity, No rub noted, No Gallop Abdomen: Bowel Sounds Present, Soft, Non Tender, Non-Distended Extremities: No clubbing, No cyanosis, No edema, Capillary Refill Less than 3 Seconds, Peripheral Pulses Normal, - - Mild ecchymosis at right wrist status post left heart cath via radial artery Skin: No rashes, No breakdown Musculoskeletal: No Tenderness to Palpation of Joints or Extremities, No Muscle Wasting, Arthritic Changes Lymphatic: No Cervical, Supraclavicular, or Inguinal Adenopathy Neurological: Cranial nerves II-XII grossly intact, Neuro grossly intact, Muscle tone normal, Coordination normal Psych/Mental Status: Normal Affect, Appropriate Laboratory Results 11/20/20 16:23: POC Glucose 120 H 11/20/20 21:16: POC Glucose 190 H 11/21/20 05:22: Hemoglobin A1c 7.5 H 11/21/20 05:22: WBC 5.7, RBC 4.15 L, Hgb 12.0 L, Hct 36.7 L, MCV 88.4, MCH 28.9, MCHC 32.7, RDW Std Deviation 42.0, RDW Coeff of Megan 13.0, Plt Count 222, MPV 10.0, Immature Gran % (Auto) 0.200, Neut % (Auto) 65.9, Lymph % (Auto) 22.3, [place] % (Auto) 9.4, Eos % (Auto) 1.9, Baso % (Auto) 0.3, Absolute Neuts (auto) 3.8, Absolute Lymphs (auto) 1.28, Nucleated RBC % 0 11/21/20 05:22: Sodium 137, Potassium 3.6, Chloride 105, Carbon Dioxide 25.0, Anion Gap 7, BUN 14, Creatinine 0.80, Estim Creat Clear Calc 92.52, Est GFR (MDRD) Af Amer 123, Est GFR (MDRD) Non-Af 102, BUN/Creatinine Ratio 17.4, Glucose 137 H, Calcium 8.6, Total Bilirubin 0.30, AST 26, ALT 30, Alkaline Phosphatase 99, Total Protein 7.1, Albumin 3.6, Globulin 3.5, Albumin/Globulin Ratio 1.0 11/21/20 06:32: POC Glucose 125 H 11/21/20 11:21: POC Glucose 178 H Meaningful Use Info Meaningful Use Diagnoses (Choose all that apply): AMI - AMI/Post PCI/Angioplasty Aspirin given w/in 24hrs of arrival?: Yes ASA at discharge?: Yes Statins at discharge?: Yes Joshua/ARB at discharge?: Yes Beta Kevin at discharge?: Yes Done w/ Acute [place] measure.: Yes Documented LVEF (%): 60 Inpatient E&M: 50174 Disch Hosp
--- NOTE | 2020-11-21 12:11 | CASEMGMT ---
Addendum entered by Kathleen Chatterjee 11/21/20 12:14: Jennifer, PCU charge, updated as well, voices understanding. Zeb MODI CM Original Note: Pt to be sent home on Brilinta at discharge and med e-scribed to [facility] previously. Call to [facility] and per cert pharmacy tech, pt's co-pay is $47 and they will not have in stock until tomorrow. Jose De Jesus DENISE and Tanisha [facility] pharmacist, aware and dose to be ordered here prior to discharge. Pt updated on all, voices understanding and provided with 30 day free trial card at this time. Pt voices no further questions/concerns/needs. Zeb MODI CM
[2020-11-21] MEDS: TICAGRELOR 90 MG TABLET PO (12:46)
--- NOTE | 2020-11-21 13:35 | PHA.DC.MC ---
Pharmacy Service has performed discharge medication reconciliation and counseling for this patient. 1. CARVEDILOL 3.125MG PO BID 2. LISINOPRIL 2.5MG PO DAILY 3. TICAGRELOR 90MG PO BID (FOR 1 MONTH, THEN RESUME PLAVIX 75MG PO DAILY) The patient's discharge medication list was reviewed for discrepancies and discrepancies were resolved. Home Medications Aspirin E.C. [Ecotrin] 81 mg PO DAILY@0800 09/13/13 Amitriptyline HCl 150 mg PO QHS 02/08/15 omega 8-clc-zzf-fish oil 1,000 mg (120 mg-180 mg) capsule 1,000 mg PO QDAY cap 01/06/18 nitroglycerin 0.4 mg sublingual tablet 0.4 mg SUBLINGUAL Q5M PRN #25 tab 01/07/19 glimepiride 4 mg tablet 4 mg PO QAM 02/26/19 metformin 500 mg tablet,extended release 24 hr 1,000 mg PO BID tab 07/25/20 pioglitazone 15 mg tablet 30 mg PO QODAY 90 Days #90 tab 07/25/20 Isosorbide DN [Isordil] 30 mg PO DAILY 11/20/20 Atorvastatin Calcium 80 mg PO DAILY #30 tablet 11/21/20 Carvedilol [Coreg] 3.125 mg PO BID 30 Days #60 tablet 11/21/20 Lisinopril [Zestril] 2.5 mg PO DAILY #30 tablet 11/21/20 Ticagrelor [Brilinta] 90 mg PO BID #60 tablet 11/21/20 The patient was counseled on the following discharge medications and changes in medications for homegoing were reviewed. The Reason for Use, instructions for use, and potential side effects were reviewed for all new medications. The patient's questions regarding all of their medications were answered. The patient was able to verbally demonstrate an understanding of their discharge medications.
== END 2020-11-21 11:45 | disposition home or self-care (01) ==
LOC: ED 18:48 → PCU 20:06
PROVIDERS: Admitting Provider Hospitalist; Emergency Provider Emergency Medicine; PCP Family Medicine; Visit Provider Internal Medicine
DX: I25.110 Atherosclerotic heart disease of native coronary artery with unstable angina pectoris (principal); I10 Essential (primary) hypertension; R00.0 Tachycardia, unspecified; I21.4 Non-ST elevation (NSTEMI) myocardial infarction; E78.5 Hyperlipidemia, unspecified; E11.65 Type 2 diabetes mellitus with hyperglycemia; E11.649 Type 2 diabetes mellitus with hypoglycemia without coma; N40.0 Benign prostatic hyperplasia without lower urinary tract symptoms; E66.9 Obesity, unspecified; F32.9 Major depressive disorder, single episode, unspecified; G89.29 Other chronic pain; Z95.5 Presence of coronary angioplasty implant and graft; Z79.899 Other long term (current) drug therapy; Z79.02 Long term (current) use of antithrombotics/antiplatelets; Z79.84 Long term (current) use of oral hypoglycemic drugs; Z79.82 Long term (current) use of aspirin; Z87.891 Personal history of nicotine dependence; Z68.31 Body mass index [BMI] 31.0-31.9, adult; I65.23 Occlusion and stenosis of bilateral carotid arteries; F41.9 Anxiety disorder, unspecified
CPT/HCPCS: 71045; 78452; 80048; 80053; 80061; 82962; 83036; 84484; 85025; 92921; 92928; 93005; 93017; 93458; 96365; 96366; 96375; 96376; 99152; 99153; 99218; 99285; A9500; J7030; J7040; Q9967; A4216; C1725; C1769; C1887; C1894; C9600; G0378; J2405; J2785

== ENCOUNTER 2021-01-12 13:34 | Emergency (ER) | payer MEDICARE, SELFPAY ==
[2020-09-11 08:28] VITALS: BMI 29.2
[2021-01-01 08:10] VITALS: BMI 25.7
[2021-01-12 13:35] VITALS: BP 105/51; PULSE 72; RESP 17; TEMP 36.4; O2SAT 96; BMI 26.4
--- NOTE | 2021-01-12 13:57 | RAD_ITS ---
STUDY: X-RAY CHEST REASON FOR EXAM: Male, 65 years old. Chest pain TECHNIQUE: Single AP portable view of the chest. COMPARISON: Comparison is made with prior study dated 11/19/2020. FINDINGS: EKG electrodes are seen. The lungs are clear and expanded. There is no demonstrated pleural abnormality. There is borderline cardiomegaly. Normal mediastinum and bonnie. Normal visualized pulmonary arteries. There is atherosclerotic calcification of the aortic arch with tortuosity. There are diffuse degenerative changes of the visualized thoracic spine. Normal visualized ribs, clavicles, and shoulders. There is no demonstrated abnormality of the visualized soft tissue structures of the upper abdomen. RAD/Chest 1 View (Portable) IMPRESSION: Borderline cardiomegaly. Electronically Signed: Robert Mandujano MD at 14:24 EDT , Service support ,
--- NOTE | 2021-01-12 13:57 | EKG12_ITS ---
Test Reason : CP Blood Pressure : / mmHG Vent. Rate : 070 BPM Atrial Rate : 070 BPM P-R Int : 134 ms QRS Dur : 086 ms QT Int : 390 ms P-R-T Axes : 019 023 007 degrees QTc Int : 421 ms Normal sinus rhythm Normal ECG Confirmed by DONTE POTTER, FLORES ([id number]), online content editor CODY YOON ([id number]) on 01/15/2021 2:57:29 PM Referred By: AMBER/SANTANA Confirmed By:FLORES KENT MD
[2021-01-12 14:09] LABS: Absolute Lymphocyte Count 0.99 X10^3/uL (0.83-4.51); Absolute Neutrophil Count 6.8 X10^3/uL (2.0-7.7); Basophil# 0.04 X10^3/uL; Basophil% 0.5 % (0-1); Eosinophil# 0.15 X10^3/uL; Eosinophils% 1.8 % (0-5); Hematocrit 39.6 % (40-54); Hemoglobin 12.4 g/dL (13.0-16.5); Lymphocyte # 0.99 X10^3/ul (0.83-4.51); Lymphocyte % 11.6 % (19-41); Mean Corp Hgb Conc 31.3 g/dL (32-36); Mean Corpuscular Hgb 27.6 pg (27.0-32.0); Mean Corpuscular Volume 88.2 fL (80-94); Mean Platelet Vol. 9.6 fl (6.2-12.0); NRBC Flagged by Analyzer 0 % (0-5); Neutrophil # 6.75 X10^3/uL (2.7-7.7); Neutrophil % 78.7 % (47-70); Platelet Count 247 K/mm3 (150-450); RBC Distribution Width CV 13.9 % (11.6-14.6); RBC Distribution Width SD 44.7 fl (35.1-43.9); Red Blood Count 4.49 M/mm3 (4.6-6.2); White Blood Count 8.6 K/mm3 (4.4-11.0)
[2021-01-12 14:18] LABS: Anion Gap 5 (5-15); BUN 15 mg/dL (7-18); BUN/Creat Ratio 17.7 RATIO (10-20); Calcium,Total 9.2 mg/dL (8.5-10.1); Chloride 106 mmol/L (98-107); Creatinine, Serum 0.85 mg/dL (0.70-1.30); EST Glomerular Filtration Rate 96 mL/min (>60); Est Glom Filt Rate - Afr Amer 116 mL/min (>60); Estimated Creatinine Clearance 87.08 ml/min; Glucose 151 mg/dL (74-106); Potassium 3.8 mmol/L (3.5-5.1); Sodium Level 139 mmol/L (136-145)
[2021-01-12 14:45] VITALS: BP 131/64; PULSE 68; RESP 10; O2SAT 97
[2021-01-12 15:07] VITALS: BP 126/79; PULSE 67; RESP 20; O2SAT 97
--- NOTE | 2021-01-12 15:19 | EDS_ITS ---
HPI History of Present Illness Chief Complaint: Chest Pain Informant: patient Narrative Narrative: Patient states that when he woke this morning he had 5 to 10 minutes of a sharp midsternal pain. He states that it felt deep in his chest. He did not feel it into his back. There is no nausea vomiting dyspnea or radiation. Patient is not been experiencing any significant dyspepsia. He has had prior STEMI x2. [facility] He also notes that he has been more fatigued than normal. He notes that yesterday had a blood sugar in the 60s. He does take 3 different medications for his diabetes. [facility] Medical History Atherosclerotic heart disease of [place] coronary artery without angina pectoris Bilateral carotid artery stenosis Bilateral carotid artery stenosis BPH (benign prostatic hyperplasia) Carotid artery stenosis DDD (degenerative disc disease) Elevated LFTs Essential (primary) hypertension Hyperlipidemia Obesity Sciatica Syncope Type 2 diabetes mellitus Home Medications aspirin 81 mg PO DAILY@0800 09/13/13 [History Last Taken 05/10/20] omega 1-jlx-hpc-fish oil 1,000 mg (120 mg-180 mg) capsule 1,000 mg PO QDAY cap 01/06/18 [History Last Taken Unknown] glimepiride 4 mg tablet 4 mg PO QAM 02/26/19 [History Last Taken Unknown] metformin 500 mg tablet,extended release 24 hr 1,000 mg PO BID tab 07/25/20 [History Last Taken Unknown] pioglitazone 15 mg tablet 30 mg PO QODAY 90 Days #90 tab 07/25/20 [History Last Taken Unknown] atorvastatin 80 mg tablet 80 mg PO DAILY #90 tab 12/29/20 [Rx Last Taken Unknown] lisinopril 2.5 mg tablet 2.5 mg PO DAILY #90 tab 12/29/20 [Rx Last Taken Unknown] clopidogrel 75 mg tablet 75 mg PO DAILY 01/01/21 [History Last Taken Unknown] gabapentin 800 mg tablet 800 mg PO BID 01/01/21 [History Last Taken Unknown] nitroglycerin 0.4 mg sublingual tablet 0.4 mg SUBLINGUAL Q5M PRN #25 tab 01/01/21 [Rx Last Taken Unknown] amlodipine 5 mg tablet 5 mg PO DAILY #90 tab 01/03/21 [Rx Last Taken Unknown] carvedilol 3.125 mg tablet 3.125 mg PO BID #180 tab 01/03/21 [Rx Last Taken Unknown] Allergy/AdvReac Type Severity Reaction Status Date / Time perfumes Allergy unknown Uncoded 01/12/21 13:35 Family History Sister CAD (coronary artery disease) CVA (cerebral vascular accident) Diabetes Myocardial infarction Hx of CABG Mother Cancer Lung CA Surgical History History of cataract surgery History of coronary artery stent placement (11/20/20) History of hand surgery History of left heart catheterization (02/01/19) Hx of appendectomy Social History Smoking Status: Never smoker alcohol intake: never substance use type: does not use caffeine: Yes Type: coffee what type of physical activity do you participate in: none seatbelt use: always do you feel safe at home: Yes ROS ROS ED Constitutional Constitutional ED: Reports other Details: Fatigue ; Denies chills or weight loss Eyes Eyes: Denies change in vision or diplopia ENT ENT ED: Denies ear pain, rhinorrhea or sore throat Cardiovascular Cardiovascular: Reports chest pain; Denies orthopnea, palpitations or racing heartbeat Respiratory/Chest Respiratory/Chest: Denies cough, dyspnea or orthopnea Gastrointestinal Gastrointestinal: Denies abdominal pain, diarrhea, nausea or vomiting Genitourinary Genitourinary ED: Denies dysuria, hematuria or urinary frequency Musculoskeletal Musculoskeletal: Denies arthralgias or myalgias Integumentary Denies abscess or rash Neurologic Neurologic: Denies headache(s) or weakness Psychiatric Psychiatric: Denies anxiety, depression, suicidal ideation or suicidal thoughts Endocrine Endocrinology: Denies polydipsia, polyphagia or polyuria Allergic/Immunologic Allergic/Immunologic ED: Denies mouth swelling, tongue swelling or urticaria EXAM Physical Exam Const Vital Signs: 01/12/21 13:35 01/12/21 14:45 01/12/21 15:07 Temperature 97.5 F L Temperature Source Temporal Pulse Rate 72 68 67 Respiratory Rate 17 10 L 20 H Blood Pressure 105/51 L 131/64 H 126/79 H Blood Pressure Mean 69 86 94 Pulse Ox 96 97 97 Oxygen Delivery Method Room Air Room Air Positive well nourished and well developed General Appearance ED: well developed HEENT Reports normocephalic, head/scalp atraumatic and moist mucous membranes Eyes PERRL and EOMs intact bilaterally Neck no lymphadenopathy, supple and no JVD Resp normal respiratory effort and clear to auscultation bilaterally Cardio regular rate, regular rhythm and no murmurs GI normal to inspection, nondistended, normoactive bowel sounds and non-tender Palpation: soft Back/Spine no CVA tenderness and normal ROM Extremity normal to inspection General Extremety ED: Negative for edema General Extremity: Negative for edema Neuro oriented x3 and CN's II-XII intact bilaterally Sensorium / Orientation: alert Motor Exam: strength 5/5 throughout Psych mental status grossly normal Mood & Affect: Negative for depressed or tearful Skin no rashes or lesions noted and no wounds MDM MDM MDM Narrative Medical decision making narrative: My interpretation of the plain films of his chest x-ray is no acute process. Troponin negative. EKG normal sinus rhythm with no concerning features. At this point patient's chest pain was rather atypical. I do not see an acute problem that requires hospitalization at this time. I recommend follow-up with primary care return if worsening or concerns Lab Data Attestation: I reviewed the patient's lab results. Labs: Laboratory Results - last 24 hr 01/12/21 01/12/21 13:43 13:43 WBC 8.6 RBC 4.49 L Hgb 12.4 L Hct 39.6 L MCV 88.2 MCH 27.6 MCHC 31.3 L RDW Std Deviation 44.7 H RDW Coeff of Megan 13.9 Plt Count 247 MPV 9.6 Immature Gran % (Auto) 0.400 Neut % (Auto) 78.7 H Lymph % (Auto) 11.6 L [place] % (Auto) 7.0 Eos % (Auto) 1.8 Baso % (Auto) 0.5 Absolute Neuts (auto) 6.8 Absolute Lymphs (auto) 0.99 Nucleated RBC % 0 Sodium 139 Potassium 3.8 Chloride 106 Carbon Dioxide 28.0 Anion Gap 5 BUN 15 Creatinine 0.85 Estim Creat Clear Calc 87.08 Est GFR (MDRD) Af Amer 116 Est GFR (MDRD) Non-Af 96 BUN/Creatinine Ratio 17.7 Glucose 151 H Calcium 9.2 Troponin I < 0.015 Radiography Diagnostic Testing: Radiology Impression Chest X-Ray 01/12/21 13:57 IMPRESSION: Borderline cardiomegaly. Electronically Signed: Robert Mandujano MD at 14:24 EDT , Service support , EKG Initial EKG: Attestation: I personally reviewed and interpreted this EKG as follows: Comments: EKG shows a normal sinus rhythm at a rate of 70 without concerning features of ACS or ectopy. Discharge Plan Triage Chief Complaint: Chest Pain ED Provider: Juan Luis Rubio Dx/Rx/DC Orders Clinical Impression: Chest pain, Fatigue Instructions: ED Chest Pain, Uncertain Cause Prescriptions: No Action omega 7-lhz-epp-fish oil [Fish Oil] 1,000 mg (120 mg-180 mg) capsule 1,000 mg PO QDAY RF: 0 pioglitazone 15 mg tablet 30 mg PO QODAY 90 Days Qty: 90 RF: 0 glimepiride 4 mg tablet 4 mg PO QAM RF: 0 metformin 500 mg tablet extended release 24 hr 1,000 mg PO BID RF: 0 gabapentin 800 mg tablet 800 mg PO BID RF: 0 clopidogrel [Plavix] 75 mg tablet 75 mg PO DAILY RF: 0 nitroglycerin 0.4 mg tablet, sublingual 0.4 mg SUBLINGUAL Q5M PRN (Reason: Chest Pain) Qty: 25 RF: 6 aspirin 81 MG tablet 81 mg PO DAILY@0800 RF: 0 atorvastatin 80 mg tablet 80 mg PO DAILY Qty: 90 RF: 3 lisinopril 2.5 mg tablet 2.5 mg PO DAILY Qty: 90 RF: 3 amlodipine 5 mg tablet 5 mg PO DAILY Qty: 90 RF: 3 carvedilol [Coreg] 3.125 mg tablet 3.125 mg PO BID Qty: 180 RF: 3 Primary Care Provider: Nadir Abdalla Referrals: Nadir Abdalla MD [Primary Care Provider] - 3-5 Days Disposition Disposition: Home, self care
== END 2021-01-12 16:19 | disposition home or self-care (01) ==
PROVIDERS: Emergency Provider Emergency Medicine; PCP Family Medicine
DX: R07.9 Chest pain, unspecified (principal); I25.10 Atherosclerotic heart disease of native coronary artery without angina pectoris; E11.9 Type 2 diabetes mellitus without complications; I10 Essential (primary) hypertension; E78.5 Hyperlipidemia, unspecified; N40.0 Benign prostatic hyperplasia without lower urinary tract symptoms; E66.9 Obesity, unspecified; Z79.84 Long term (current) use of oral hypoglycemic drugs; Z79.02 Long term (current) use of antithrombotics/antiplatelets; Z79.82 Long term (current) use of aspirin; Z79.899 Other long term (current) drug therapy; I25.2 Old myocardial infarction; Z95.5 Presence of coronary angioplasty implant and graft
CPT/HCPCS: 71045; 80048; 84484; 85025; 93005; 99283; A4216

== ENCOUNTER → 2021-01-15 12:26 | Outpatient (CLI) | payer MEDICARE, SELFPAY ==
[2020-09-11 08:28] VITALS: BMI 29.2
[2021-01-01 08:10] VITALS: BMI 25.7
[2021-01-12 13:35] VITALS: BMI 26.4
--- NOTE | 2021-01-15 12:27 | ART_ITS ---
Reason For Study: CLAUDICATION Procedure A bilateral lower extremity continuous wave Doppler with analog waveform analysis,segmental pressures,and ankle brachial indexes without exercise. Left Segmental Pressures Left brachial= 120mmHg. Left posterior tibial artery = 157mmHg. Left dorsalis pedis artery = 151mmHg. Left digit = 87 mmHg. The left posterior tibial artery waveforms are biphasic. The left dorsalis pedis waveforms are triphasic. Right Segmental Pressures Right brachial= 136mmHg. Right posterior tibial artery = 157mmHg. Right dorsalis pedis artery = 145mmHg. Right digit = 113 mmHg. The right dorsalis pedis waveforms are triphasic. The right posterior tibial artery waveforms are triphasic. Indices The right ankle brachial index by the dorsalis pedis is 1.07. The right ankle brachial index by the posterior tibial artery is 1.15. The right digital-brachial index is .83. The left ankle brachial index by the posterior tibial artery is 1.15. The left ankle brachial index by the dorsalis pedis is 1.11. The left digital-brachial index is .64. VL/Lower Ext Art Exam w/o Exercis Interpretation Summary Normal bilateral lower extremity DP and PT resting ankle-brachial indices. Abnormal left posterior tibial Doppler waveform biphasic suggesting the possibi lity of mild disease. Normal right digital brachial index Abnormal left digital brachial index Ordering Physician: Ramez Mancia Referring Physician: BO GRADY Performed By: Lynnette Judge, ULISSES, RVT
== END ==
PROVIDERS: PCP Family Medicine; Referring Provider Nurse Practitioner Family; Visit Provider Nurse Practitioner Family
DX: I73.9 Peripheral vascular disease, unspecified (principal)
CPT/HCPCS: 93923

== ENCOUNTER 2021-03-01 18:01 | Emergency (ER) | payer MEDICARE, SELFPAY ==
[2020-09-11 08:28] VITALS: BMI 29.2
[2021-03-01 18:01] VITALS: BP 117/62; PULSE 78; RESP 14; TEMP 36.3; O2SAT 94; BMI 26.9
[2021-03-01] MEDS: Lidocaine 1% (20 ml mdv) 20 ML Vial INFILT (20:53)
[2021-03-01] MEDS: Diphth,Pertuss(Acell),Tet Vac 0.5 ML Vial IM (20:53)
--- NOTE | 2021-03-01 21:00 | RAD_ITS ---
STUDY: X-RAY - LEFT HAND, ATTENTION SECOND FINGER REASON FOR EXAM: Male, 66 years old. injury/pain TECHNIQUE: 3 view(s) of the finger were obtained. COMPARISON: None. FINDINGS: Normal metacarpal head. Normal metacarpophalangeal joint. Normal proximal phalanx. Normal middle phalanx. Normal distal phalanx. Normal proximal interphalangeal joint. Normal distal interphalangeal joint. Soft tissue swelling. RAD/Finger(s) Min 2 Views IMPRESSION: Soft tissue injury without underlying fracture, dislocation or foreign body. Electronically Signed: Keeley Mota MD at 21:28 EDT , Service support ,
--- NOTE | 2021-03-01 21:40 | EX.ED.UPPERE ---
HPI History of Present Illness Chief Complaint: Laceration Informant: patient Occured/Mechanism Comment: Left index finger laceration after cutting with a knife. Onset/Context/Timing Onset: Today Current Severity: Mild Maximum Severity: Moderate Associated Symptoms Associated Symptoms: Negative for Parasthesia and Weakness Narrative Narrative: Patient presents with a laceration to the proximal phalanx of the left index finger. Patient states he was using a knife with a short blade when he stabbed himself in the left index finger. He is unsure of his last tetanus update. He is right-hand dominant. He denies paresthesias or weakness. [facility] Medical History Atherosclerotic heart disease of [place] coronary artery without angina pectoris Bilateral carotid artery stenosis Bilateral carotid artery stenosis BPH (benign prostatic hyperplasia) Carotid artery stenosis DDD (degenerative disc disease) Elevated LFTs Essential (primary) hypertension Heart attack Hyperlipidemia Obesity Sciatica Syncope Type 2 diabetes mellitus Home Medications aspirin 81 mg PO DAILY@0800 09/13/13 [History Last Taken 05/10/20] omega 6-pvz-jvk-fish oil 1,000 mg (120 mg-180 mg) capsule 1,000 mg PO QDAY cap 01/06/18 [History Last Taken Unknown] glimepiride 4 mg tablet 4 mg PO QAM 02/26/19 [History Last Taken Unknown] metformin 500 mg tablet,extended release 24 hr 1,000 mg PO BID tab 07/25/20 [History Last Taken Unknown] pioglitazone 15 mg tablet 30 mg PO QODAY 90 Days #90 tab 07/25/20 [History Last Taken Unknown] atorvastatin 80 mg tablet 80 mg PO DAILY #90 tab 12/29/20 [Rx Last Taken Unknown] lisinopril 2.5 mg tablet 2.5 mg PO DAILY #90 tab 12/29/20 [Rx Last Taken Unknown] clopidogrel 75 mg tablet 75 mg PO DAILY 01/01/21 [History Last Taken Unknown] gabapentin 800 mg tablet 800 mg PO BID 01/01/21 [History Last Taken Unknown] nitroglycerin 0.4 mg sublingual tablet 0.4 mg SUBLINGUAL Q5M PRN #25 tab 01/01/21 [Rx Last Taken Unknown] amlodipine 5 mg tablet 5 mg PO DAILY #90 tab 01/03/21 [Rx Last Taken Unknown] carvedilol 3.125 mg tablet 3.125 mg PO BID #180 tab 01/03/21 [Rx Last Taken Unknown] Allergy/AdvReac Type Severity Reaction Status Date / Time perfumes Allergy unknown Uncoded 03/01/21 18:03 Family History Sister CAD (coronary artery disease) CVA (cerebral vascular accident) Diabetes Myocardial infarction Hx of CABG Mother Cancer Lung CA Surgical History History of cataract surgery History of coronary artery stent placement (11/20/20) History of hand surgery History of left heart catheterization (02/01/19) Hx of appendectomy Social History Smoking Status: Never smoker alcohol intake: never substance use type: does not use caffeine: Yes Type: coffee what type of physical activity do you participate in: none seatbelt use: always do you feel safe at home: Yes ROS ROS ED Constitutional Constitutional ED: Denies chills or fever(s) Eyes Eyes: Denies change in vision ENT ENT ED: Denies sore throat Cardiovascular Cardiovascular: Denies chest pain Respiratory/Chest Respiratory/Chest: Denies cough or dyspnea Gastrointestinal Gastrointestinal: Denies abdominal pain, diarrhea, nausea or vomiting Genitourinary Genitourinary ED: Denies dysuria Musculoskeletal Musculoskeletal: Reports other Details: Left hand pain ; Denies back pain Integumentary Reports other Details: Laceration ; Denies rash Neurologic Neurologic: Denies headache(s) or weakness Psychiatric Psychiatric: Denies anxiety or depression Endocrine Endocrinology: Denies polydipsia or polyuria Allergic/Immunologic Allergic/Immunologic ED: Denies urticaria EXAM Physical Exam Const Vital Signs: 03/01/21 18:01 Temperature 97.4 F L Temperature Source Oral Pulse Rate 78 Respiratory Rate 14 Blood Pressure 117/62 Blood Pressure Mean 80 Pulse Ox 94 Oxygen Delivery Method Room Air Positive well nourished and well developed General Appearance ED: well developed HEENT normocephalic Chest Wall inspection of chest normal and palpation of chest normal Resp normal respiratory effort and clear to auscultation bilaterally Cardio regular rate and regular rhythm GI non-tender Palpation: soft Extremity Extremity Narrative: 1.5 cm laceration to the extensor surface of the left index finger. Bleeding well controlled. Full range of motion of the digit with normal sensation and cap refill. Neuro oriented x3, no focal motor deficits and no sensory deficits noted Sensorium / Orientation: alert MDM MDM MDM Narrative Medical decision making narrative: Tetanus update provided. Left index finger x-rays obtained. Radiography Diagnostic Testing: Radiology Impression Finger X-Ray 03/01/21 21:00 IMPRESSION: Soft tissue injury without underlying fracture, dislocation or foreign body. Electronically Signed: Keeley Mota MD at 21:28 EDT , Service support , Treatment and Re-Evaluation Comments:: Finger is anesthetized with 4 cc of 1% lidocaine. Wound is cleansed and irrigated. 5 simple interrupted sutures of 5-0 nylon are placed with good approximation. Dressing is applied. Patient is to have sutures removed in 7 to 10 days. Procedures Lacerations Left index finger laceration: Length: 0.59 in Depth: Sub Q Shape: Linear Prep: [place] Laceration repair: Irrigated, Lidocaine and Nerve block Number of Sutures/Dany: 5 Suture Information: Ethilon, Simple and 5-0 Discharge Plan Triage Chief Complaint: Laceration ED Provider: Ivy Toribio Dx/Rx/DC Orders Clinical Impression: Finger laceration Instructions: ED Laceration, Hand: All Closures Prescriptions: No Action omega 2-luk-shm-fish oil [Fish Oil] 1,000 mg (120 mg-180 mg) capsule 1,000 mg PO QDAY RF: 0 pioglitazone 15 mg tablet 30 mg PO QODAY 90 Days Qty: 90 RF: 0 glimepiride 4 mg tablet 4 mg PO QAM RF: 0 metformin 500 mg tablet extended release 24 hr 1,000 mg PO BID RF: 0 gabapentin 800 mg tablet 800 mg PO BID RF: 0 clopidogrel [Plavix] 75 mg tablet 75 mg PO DAILY RF: 0 nitroglycerin 0.4 mg tablet, sublingual 0.4 mg SUBLINGUAL Q5M PRN (Reason: Chest Pain) Qty: 25 RF: 6 aspirin 81 MG tablet 81 mg PO DAILY@0800 RF: 0 atorvastatin 80 mg tablet 80 mg PO DAILY Qty: 90 RF: 3 lisinopril 2.5 mg tablet 2.5 mg PO DAILY Qty: 90 RF: 3 amlodipine 5 mg tablet 5 mg PO DAILY Qty: 90 RF: 3 carvedilol [Coreg] 3.125 mg tablet 3.125 mg PO BID Qty: 180 RF: 3 Primary Care Provider: Nadir Abdalla Referrals: Nadir Abdalla MD [Primary Care Provider] - 10 Day for suture removal Disposition Disposition: Home, Self Care Discharge Date/Time: 03/01/21 21:56
[2021-03-01 21:55] VITALS: BP 115/74; PULSE 83; RESP 16; O2SAT 97
== END 2021-03-01 21:56 | disposition home or self-care (01) ==
PROVIDERS: Emergency Provider Emergency Medicine; PCP Family Medicine
DX: S61.211A Laceration without foreign body of left index finger without damage to nail, initial encounter (principal); Z23 Encounter for immunization; W26.0XXA Contact with knife, initial encounter; Y93.9 Activity, unspecified; Y92.9 Unspecified place or not applicable; Y99.9 Unspecified external cause status; I25.10 Atherosclerotic heart disease of native coronary artery without angina pectoris; E11.9 Type 2 diabetes mellitus without complications; I10 Essential (primary) hypertension; E78.5 Hyperlipidemia, unspecified; N40.0 Benign prostatic hyperplasia without lower urinary tract symptoms; E66.9 Obesity, unspecified; Z79.82 Long term (current) use of aspirin; Z79.84 Long term (current) use of oral hypoglycemic drugs; Z79.02 Long term (current) use of antithrombotics/antiplatelets; Z79.899 Other long term (current) drug therapy; I25.2 Old myocardial infarction; Z95.5 Presence of coronary angioplasty implant and graft
CPT/HCPCS: 12001; 73140; 90471; 90715; 99284

== ENCOUNTER → 2021-04-16 10:34 | Outpatient (CLI) | payer MEDICARE, SELFPAY ==
[2020-09-11 08:28] VITALS: BMI 29.2
[2021-03-02 13:25] VITALS: BMI 26.4
[2021-04-16 13:06] LABS: AST(SGOT) 17 U/L (15-37); Alanine Aminotransfer ALT/SGPT 29 U/L (16-61); Albumin, Serum 3.8 g/dL (3.2-5.0); Alkaline Phosphatase 102 U/L (45-117); Bilirubin, Direct 0.09 mg/dL (0.00-0.30); Cholesterol 146 mg/dL (200); Globulin 3.6 g/dL (2.2-4.2); High Density Lipoprotein 48 mg/dL; Protein, Total 7.4 g/dL (6.4-8.2); Triglycerides 108 mg/dL; Very Low Density Lipoprotein 22 mg/dL (5-40)
== END ==
PROVIDERS: PCP Family Medicine; Referring Provider Nurse Practitioner Family; Visit Provider Nurse Practitioner Family
DX: E78.00 Pure hypercholesterolemia, unspecified (principal); E78.5 Hyperlipidemia, unspecified
CPT/HCPCS: 36415; 80061; 80076

== ENCOUNTER → 2021-04-24 11:47 | Outpatient (CLI) | payer MEDICARE, SELFPAY ==
[2020-09-11 08:28] VITALS: BMI 29.2
[2021-04-24 12:23] LABS: Absolute Lymphocyte Count 1.43 X10^3/uL (0.83-4.51); Absolute Neutrophil Count 3.6 X10^3/uL (2.0-7.7); Basophil# 0.04 X10^3/uL; Basophil% 0.7 % (0-1); Eosinophils% 3.4 % (0-5); Hematocrit 37.1 % (40-54); Lymphocyte # 1.43 X10^3/ul (0.83-4.51); Lymphocyte % 24.7 % (19-41); Mean Corp Hgb Conc 32.3 g/dL (32-36); Mean Corpuscular Hgb 28.6 pg (27.0-32.0); Mean Corpuscular Volume 88.3 fL (80-94); Mean Platelet Vol. 9.7 fl (6.2-12.0); Monocyte# 0.51 X10^3/uL; Monocyte% 8.8 % (0-10); NRBC Flagged by Analyzer 0 % (0-5); Neutrophil # 3.61 X10^3/uL (2.7-7.7); Neutrophil % 62.2 % (47-70); Platelet Count 227 K/mm3 (150-450); RBC Distribution Width CV 12.8 % (11.6-14.6); RBC Distribution Width SD 41.4 fl (35.1-43.9); White Blood Count 5.8 K/mm3 (4.4-11.0)
[2021-04-24 12:47] LABS: Anion Gap 5 (5-15); BUN 19 mg/dL (7-18); BUN/Creat Ratio 27.1 RATIO (10-20); Chloride 108 mmol/L (98-107); EST Glomerular Filtration Rate 119 mL/min (>60); Est Glom Filt Rate - Afr Amer 144 mL/min (>60); Glucose 90 mg/dL (74-106); Sodium Level 140 mmol/L (136-145)
== END ==
PROVIDERS: PCP Family Medicine; Referring Provider Internal Medicine Cardiovascular Disease; Visit Provider Internal Medicine Cardiovascular Disease
DX: I25.118 Atherosclerotic heart disease of native coronary artery with other forms of angina pectoris (principal); E78.5 Hyperlipidemia, unspecified; Z95.5 Presence of coronary angioplasty implant and graft
CPT/HCPCS: 36415; 80048; 85025

== ENCOUNTER 2021-04-26 06:22 | Day surgery (SDC) | payer MEDICARE, SELFPAY ==
[2020-09-11 08:28] VITALS: BMI 29.2
[2021-04-25 09:17] VITALS: BMI 26.4
[2021-04-26] VITALS (14 sets, daily range): BP systolic 121–161; BP diastolic 63–85; PULSE 68–77; RESP 14–19; TEMP 36.2–36.4; O2SAT 96–100
--- NOTE | 2021-04-26 08:33 | CL.D_ITS ---
Patient Name: PRESTON BATES Study Date: 04/26/2021 Performing: Jd Nickerson MD Ht: 70.07 inches 178 cm : 1955 Wt: 182.98 lbs 83 kg Age: 66 Gender: male BSA: 2.01 PROCEDURE(S) PERFORMED MG89-EZF/COR/LV CLINICAL PROFILE AND INDICATIONS Indications: Worsening Angina Heart Failure: None Stress/Imaging Date: 11/20/20ress Test with SPECT MPI: Positive Low Risk CAD Presentations: Unstable angina. CONCLUSIONS High-grade stenosis noted in the mid right coronary artery with moderate disease noted in the distal right coronary artery. The previously placed stent in the left anterior descending artery is patent, the previously placed stent in the first diagonal vessel which was probably called and ramus interme dius is patent in the [place] circumflex artery with a previously placed stent has moderate in-stent s tenosis. RECOMMENDATIONS Referred for immediate PCI DESCRIPTION OF PROCEDURE The patient arrived to the procedure lab. The risks and benefits of the procedure as well as a full d escription of our services here and current unavailability of surgical backup were fully explained to the patient and/or their significant other prior to the catheterization. The Timeout was completed, verifying the correct patient and procedure. The patient's procedural site was prepped and draped in the usual fashion. Local anesthetic was given subcutaneously to right radial region with Lidocaine 2% . Using a modified Seldinger technique, arterial access was obtained via the right radial artery, a 6 Fr sheath was inserted. Right Coronary Artery selective angiography was performed in multiple views using a 5 Fr. 4.0 [place] catheter. Left Coronary Artery selective angiography was performed in multipl e views using a 5 Fr. 4.0 [place] catheter. Left Ventriculography was performed in SUAREZ projection using a 5 Fr. [place] catheter. LV to AO pullback pressures were then recorded. CORONARY ANGIOGRAPHY DOMINANCE: Right Dominant LEFT HEART ASSESSMENT Left Ventricular Ejection Fraction: by LV Gram 60 % Normal LV wall motion Normal Left Ventricular systolic function LEFT MAIN: Angiographically normal LEFT ANTERIOR DESCENDING ARTERY: MID LAD: Previously placed stent is patent DIAGONAL 1: Proximal - Previously placed stent is patent CIRCUMFLEX ARTERY: PROX CIRC: Previously placed stent has an instent 60 % restenosis RIGHT CORONARY ARTERY: MID RCA: 80 % Stenosis DISTAL RCA: At the trifurcation is noted to have a 60% stenosis COMPLICATIONS PROCEDURE MEDICATIONS Versed 1 mg IV Fentanyl 50 mcg IV Versed 1 mg IV Versed 1 mg IV Oxygen: 2 L/min via nasal cannula Heparin given IA 04/26/2021 08:07:57 Verapamil 2.5mg, Ntg 100mcgs, 3000 units of Heparin given IA 04/26/2021 08:07:57 SUMMARY OF HEMODYNAMIC DATA Time AIR REST ECG 07:01:35 Art 164/62 (96) 07:44:39 AO 114/64 (88) SA 08:10:04 LV 110/2, 9 08:17:59 LV 112/3, 10 08:18:05 LV 100/4, 8 08:18:36 LVp 101/3, 9 08:18:40 AOp 117/60 (87) 08:18:45 Signed By Jd Nickerson MD On 04/26/2021 08:32:35 Jd Nickerson MD
--- NOTE | 2021-04-26 10:16 | CL.I_ITS ---
Patient Name: PRESTON BATES Study Date: 04/26/2021 Performing: Blanka Cabrales MD Ht: 70.07 inches 178 cm : 1955 Wt: 182.98 lbs 83 kg Age: 66 Gender: male BSA: 2.01 PROCEDURE(S) PERFORMED [id number] W OR WO PTCA, SINGLE CORONARY ARTERY CLINICAL PROFILE AND CO-MORBIDITIES Indications: Worsening Angina Heart Failure: None Stress/Imaging Date: 11/20/20 Stress Test with SPECT MPI: Positive Low Risk CAD Presentations: Unstable angina. CONCLUSIONS Successful PCI with RODDY to mRCA and PTCA alone to dRCA RECOMMENDATIONS DESCRIPTION OF PROCEDURE The patient arrived to the procedure lab. The risks and benefits of the procedure as well as a full d escription of our services here and current unavailability of surgical backup were fully explained to the patient and/or their significant other prior to the catheterization. The Timeout was completed, verifying the correct patient and procedure. The patient's procedural site was prepped and draped in the usual fashion. Local anesthetic was given subcutaneously to right radial region with Lidocaine 2% Using a modified Seldinger technique,arterial access was obtained via the right radial artery, a 6Fr sheath was inserted. Right Coronary Artery selective angiography was performed in multiple views usi ng a 5 Fr. 4.0 [place] catheter. Left Coronary Artery selective angiography was performed in multiple v iews using a 5 Fr. 4.0 [place] catheter. Left Ventriculography was performed in SUAREZ projection using a 5 Fr. Pigtail catheter. LV to AO pullback pressures were then recorded. AR 2 Guide catheter was inserted and engaged into the LCA. BMW Dane Guide wire was advanced to the RCA. Runthrough Guide wire was inserted as a perry wire Emerge 2.25 x 12 Balloon catheter was inserted. Emerge 2.25 x 12 Balloon catheter was inserted. Balloon catheter was advanced across lesion in the right coronary, distal. PTCA balloon inflated at 6 atms for 10 secs. PTCA balloon inflated at 6 atms for 6 secs. PTCA balloon inflated at 6 atms for 5 secs. Balloon catheter was repositioned to additional lesion in the right coronary, mid. PTCA balloon inflated at 12 atms for 12 secs. Orsiro 3. 0 x 9 Drug Eluting stent was inserted. Drug Eluting stent was removed intact, failed to cross lesion Emerge 3.0 x 8 Balloon catheter was inserted. Balloon catheter was advanced across lesion in the righ t coronary, mid. PTCA balloon inflated at 6 atms for 8 secs. PTCA balloon inflated at 6 atms for 9 se cs. PTCA balloon inflated at 6 atms for 4 secs. PTCA balloon inflated at 8 atms for 20 secs. Angiogram performed post balloon dilatation. Runthrough Guide wire was reinserted as a perry wi re Orsiro 3.0 x 9 Drug Eluting stent was reinserted Drug Eluting stent was advanced across the lesion in the right coronary, mid. Angiogram performed post stent deployment. NC Emerge 3.0 x 8 Balloon cat heter was inserted. Balloon catheter was advanced across lesion in the right coronary, mid. Angiogram performed post balloon dilatation. The arterial sheath was pulled and a TR Band was applied for he mostasis INTERVENTION INFORMATION LESION SITE: RCA (Mid) Lesion Complexity: High/C, chronic total occlusion: No, lesion at bifurcation: Yes, thrombus present: No, lesion length: 8 mm, culprit lesion: Yes, Previously treated lesion: No Pre Stenosis: 70 % Pre intervention SHARRI flow: 3 PROCEDURE: Balloon Angioplasty Post Stenosis: 40 % Post intervention SHARRI flow: 3 Lesion Devices: Zavaleta .014 BMW Dane Straight 190cm Cardinal 6 Fr AR2 100cm Guide Catheter Terumo .014 Runthrough Extra Floppy 180cm straight Nicola Sci EMERGE MR 2.25x12 BALLOON LESION SITE: RCA (Mid) Lesion Complexity: High/C, chronic total occlusion: No, lesion at bifurcation: No, thrombus present: No, lesion length: 8 mm, culprit lesion: Yes, Previously treated lesion: No Pre Stenosis: 80 % Pre intervention SHARRI flow: 3 PROCEDURE: Drug Eluting Stent with pre and post dilatation Post Stenosis: 0 % Post intervention SHARRI flow: 3 Lesion Devices: Zavaleta .014 BMW Dane Straight 190cm Cardinal 6 Fr AR2 100cm Guide Catheter Terumo .014 Runthrough Extra Floppy 180cm straight Nicola Sci EMERGE MR 2.25x12 BALLOON Biotronik Orsiro MR RODDY 3.0x9 Nicola Sci EMERGE MR 3.00x08 BALLOON Nicola Sci NC EMERGE MR 3.00x08 BALLOON COMPLICATIONS No Complications PROCEDURE MEDICATIONS Versed 1 mg IV Fentanyl 50 mcg IV Versed 1 mg IV Versed 1 mg IV Oxygen: 2 L/min via nasal cannula Heparin given IA 04/26/2021 08:07:57 Heparin 6000 unit(s) IV 04/26/2021 09:01:40 Heparin 1000 unit(s) IV 04/26/2021 09:42:44 Verapamil 2.5mg, Ntg 100mcgs, 3000 units of Heparin given IA 04/26/2021 08:07:57 SUMMARY OF HEMODYNAMIC DATA Time AIR REST ECG 07:01:35 Art 164/62 (96) 07:44:39 AO 114/64 (88) SA 08:10:04 LV 110/2, 9 08:17:59 LV 112/3, 10 08:18:05 LV 100/4, 8 08:18:36 LVp 101/3, 9 08:18:40 AOp 117/60 (87) 08:18:45 AO 135/62 (90) 09:02:44 RM AIR REST 10:06:20 Signed By Blanka Cabrales MD On 04/26/2021 10:15:43 Blanka Cabrales MD
--- NOTE | 2021-04-26 10:30 | EKG12_ITS ---
Test Reason : POST PCI Blood Pressure : / mmHG Vent. Rate : 072 BPM Atrial Rate : 072 BPM P-R Int : 126 ms QRS Dur : 080 ms QT Int : 400 ms P-R-T Axes : 020 029 023 degrees QTc Int : 438 ms Normal sinus rhythm Normal ECG When compared with ECG of 12-JAN-2021 13:47, No significant change was found Confirmed by SHAHID POTTER, JD ([id number]), editor greeting card CODY YOON ([id number]) on 04/30/2021 9:35:19 AM Referred By: Jd Nickerson Confirmed By:JD NICKERSON MD
[2021-04-26] MEDS: 0.9% Normal Saline 1,000 ML 60 ML IV (10:55)
[2021-04-26 11:06] LABS: Bedside Glucose 121 mg/dL (70-110)
--- NOTE | 2021-04-26 11:24 | CRPHASE1_ITS ---
Patient Communication Former Patient:: Phase I - Patient previously educated several times by CR & powerhouse laborer staff with previous stenting procedures, Phase II - Patient previously completed 36 sessions of CR PH II- Outpatient program. PHII Cardiac Rehab Discussed with Patient:: Yes Guide to Cardiac Rehab Given to Patient:: Yes Cardiac Rehab Facility Choice List Given to Patient:: Yes Choice Program [facility] CR PHII:: Communication Given to CR, Refer to [facility] Refer Phase II Cardiac Rehab:: Yes Sessions:: 36 sessions - 3 days/wk, 12 weeks Cardiac Rehabilitation Info Cardiac Rehabilitation Program Information: Cardiac Rehabilitation is important for patients like you who are recovering from a heart problem. Cardiac rehabilitation programs are recognized as integral to the continued care of the patient with coronary heart disease. The cardiac rehabilitation program is designed to optimize a patient's physical, psychological, and social functioning. Health childcare center administrator work in cardiac rehabilitation programs and assist you with getting the treatments you need to get stronger and healthier - like exercise, healthy eating habits, and medicati ons. Cardiac rehabilitation has been show to help people with heart problems live longer and have better life enjoyment than people who do not go to cardiac rehabilitation. Please contact the Cardiac Rehabilitation Program at [facility] at in two weeks if you have not heard from them.
--- NOTE | 2021-04-26 11:25 | CRPH1.INSTRU ---
General Education CAD and cardiac anatomy and function:: Patient communicates acknowledgment Explanation of diagnoses and procedures:: Patient communicates acknowledgment Sign/Symptoms of ME:: Patient communicates acknowledgment, Needs reinforcement Antiplatelet therapy: Patient communicates acknowledgment Proper use of NTG-SL: Patient communicates acknowledgment Emergency procedures and activation of EMS: Patient communicates acknowledgment Compliance of all prescribed medications: Patient communicates acknowledgment, Needs reinforcement Dyslipidemia Patient Dyslipidemia Risk Factors Are:: Total Cholesterol, Triglycerides, HDL, LDL Recommendations Include:: Lipid profile provided Dyslipidemia Response Code:: Patient communicates acknowledgment Hypertension Recommendations Include:: Maintain BP <130/85, DASH dietary guidelines Hypertension:: Patient communicates acknowledgment Heart Disease Patient Heart Disease Risk Factors Are:: Family history of heart disease < 65 years old, Previous cardiac event Recommendations Include:: Educated family members of their risk, Educated family members of importance of prevention of heart disease Heart Disease Response Code:: Patient communicates acknowledgment
--- NOTE | 2021-04-26 21:11 | PCS.PANDOC ---
PANDEMIC DOCUMENTATION INITIATED: Date: 04/16/2021 Time: 190
[2021-04-27 03:00] VITALS: PULSE 68
[2021-04-27 03:30] VITALS: BP 131/78; PULSE 72; RESP 18; TEMP 36.6; O2SAT 97
[2021-04-27 06:50] LABS: Hematocrit 34.9 % (40-54); Hemoglobin 11.4 g/dL (13.0-16.5); Mean Corp Hgb Conc 32.7 g/dL (32-36); Mean Corpuscular Hgb 28.9 pg (27.0-32.0); Mean Corpuscular Volume 88.4 fL (80-94); Mean Platelet Vol. 9.6 fl (6.2-12.0); Platelet Count 194 K/mm3 (150-450); RBC Distribution Width CV 12.8 % (11.6-14.6); RBC Distribution Width SD 41.1 fl (35.1-43.9); Red Blood Count 3.95 M/mm3 (4.6-6.2); White Blood Count 6.1 K/mm3 (4.4-11.0)
[2021-04-27 07:20] LABS: ALB/GLOB Ratio 1.2 RATIO (0.9-2.4); AST(SGOT) 21 U/L (15-37); Alanine Aminotransfer ALT/SGPT 29 U/L (16-61); Albumin, Serum 3.8 g/dL (3.2-5.0); Alkaline Phosphatase 75 U/L (45-117); Anion Gap 6 (5-15); BUN 17 mg/dL (7-18); BUN/Creat Ratio 23.1 RATIO (10-20); Calcium,Total 8.4 mg/dL (8.5-10.1); Chloride 106 mmol/L (98-107); Creatinine, Serum 0.74 mg/dL (0.70-1.30); EST Glomerular Filtration Rate 112 mL/min (>60); Est Glom Filt Rate - Afr Amer 136 mL/min (>60); Globulin 3.3 g/dL (2.2-4.2); Glucose 128 mg/dL (74-106); Potassium 3.6 mmol/L (3.5-5.1); Protein, Total 7.1 g/dL (6.4-8.2); Sodium Level 138 mmol/L (136-145)
[2021-04-27 07:40] VITALS: PULSE 62
[2021-04-27 07:48] VITALS: O2SAT 94
[2021-04-27 08:45] VITALS: BP 138/69; PULSE 72; RESP 16; TEMP 36.8; O2SAT 96
--- NOTE | 2021-04-27 09:38 | PCM.PN.CARD ---
Subjective Subjective Patient seen and evaluated. Appears to be doing well. Denies any chest pain. Objective Data Vital Signs: Vital Signs Temp Pulse Resp BP Pulse Ox 98.3 F 72 16 138/69 H 96 04/27/21 08:45 04/27/21 08:45 04/27/21 08:45 04/27/21 08:45 04/27/21 08:45 Oxygen Delivery Method Room Air Weight: 184 lb Body Mass Index (BMI) 26.4 Intake & Output: Intake and Output for Last 24 Hours 04/25/21 04/26/21 04/27/21 23:59 23:59 23:59 Intake Total 541 / 741 200 / 200 Balance 541 / 741 200 / 200 Lab / Micro Data Result Diagrams: 04/27/21 06:25 04/27/21 06:25 Labs: Laboratory Results - last 24 hr 04/26/21 10:58: POC Glucose 121 H 04/27/21 06:25: WBC 6.1, RBC 3.95 L, Hgb 11.4 L, Hct 34.9 L, MCV 88.4, MCH 28.9, MCHC 32.7, RDW Std Deviation 41.1, RDW Coeff of Megan 12.8, Plt Count 194, MPV 9.6 04/27/21 06:25: Sodium 138, Potassium 3.6, Chloride 106, Carbon Dioxide 26.0, Anion Gap 6, BUN 17, Creatinine 0.74, Estim Creat Clear Calc 73.00, Est GFR (MDRD) Af Amer 136, Est GFR (MDRD) Non-Af 112, BUN/Creatinine Ratio 23.1 H, Glucose 128 H, Calcium 8.4 L, Total Bilirubin 0.60, AST 21, ALT 29, Alkaline Phosphatase 75, Total Protein 7.1, Albumin 3.8, Globulin 3.3, Albumin/Globulin Ratio 1.2 Cardiology Labs/Tests 04/27/21 06:25: WBC 6.1, RBC 3.95 L, Hgb 11.4 L, Hct 34.9 L, MCV 88.4, MCH 28.9, MCHC 32.7, Plt Count 194, MPV 9.6 04/27/21 06:25: Sodium 138, Potassium 3.6, Chloride 106, Carbon Dioxide 26.0, Anion Gap 6, BUN 17, Creatinine 0.74, Est GFR (MDRD) Af Amer 136, Est GFR (MDRD) Non-Af 112, BUN/Creatinine Ratio 23.1 H, Glucose 128 H, Calcium 8.4 L, Total Bilirubin 0.60 Rhythm: EKG: Normal sinus rhythm ECHO: Stress Test: Cardiac Cath: PCI: CT Surgery: Holter monitor: EPS: PPM: CXR: Chest CT Scan: Assessment & Plan Assessment/Plan (1) History of coronary artery stent placement: PLAN: Patient presented with chest discomfort and underwent angioplasty and stent placement with a drug-eluting stent to the right coronary artery. Patient will be followed up as an outpatient. Cardiac rehabilitation services ordered. Continue current medications.
--- NOTE | 2021-04-27 09:39 | PCM.DC ---
Discharge Instructions Diet Discharge Diet: No restrictions Activity Discharge Activity: Return to Normal Activity Follow Up Care When: heart group Test Results: Test results from this visit will be discussed in further detail at your follow-up appointment, if applicable. Discharge Plan Admission Attending Provider: Jd Nickerson Primary Care Provider: Nadir Abdalla Discharge Orders/Prescriptions Prescriptions: No Action omega 0-cis-byj-fish oil [Fish Oil] 1,000 mg (120 mg-180 mg) capsule 1,000 mg PO QDAY RF: 0 pioglitazone 15 mg tablet 30 mg PO QODAY 90 Days Qty: 90 RF: 0 glimepiride 4 mg tablet 4 mg PO QAM RF: 0 metformin 500 mg tablet extended release 24 hr 1,000 mg PO BID RF: 0 gabapentin 800 mg tablet 800 mg PO BID RF: 0 clopidogrel [Plavix] 75 mg tablet 75 mg PO DAILY RF: 0 nitroglycerin 0.4 mg tablet, sublingual 0.4 mg SUBLINGUAL Q5M PRN (Reason: Chest Pain) Qty: 25 RF: 6 aspirin 81 MG tablet 81 mg PO DAILY@0800 RF: 0 atorvastatin 80 mg tablet 80 mg PO DAILY Qty: 90 RF: 3 lisinopril 2.5 mg tablet 2.5 mg PO DAILY Qty: 90 RF: 3 carvedilol [Coreg] 3.125 mg tablet 3.125 mg PO BID Qty: 180 RF: 3 amlodipine 5 mg tablet 5 mg PO DAILY Qty: 90 RF: 3
--- NOTE | 2021-04-27 10:00 | EKG12_ITS ---
Test Reason : AM EKG Blood Pressure : / mmHG Vent. Rate : 075 BPM Atrial Rate : 075 BPM P-R Int : 148 ms QRS Dur : 082 ms QT Int : 384 ms P-R-T Axes : 066 020 032 degrees QTc Int : 428 ms Normal sinus rhythm Normal ECG When compared with ECG of 26-APR-2021 11:07, MANUAL COMPARISON REQUIRED, DATA IS UNCONFIRMED Confirmed by SHAHID POTTER, JD ([id number]), commissioning editor CODY YOON ([id number]) on 04/30/2021 9:31:34 AM Referred By: Jd Nickerson Confirmed By:JD NICKERSON MD
--- NOTE | 2021-04-27 10:20 | PHA.DC.MR ---
Pharmacy Service has performed discharge medication reconciliation for this patient. The patient's discharge medication list was reviewed for discrepancies and discrepancies were resolved. Home Medications aspirin 81 mg PO DAILY@0800 09/13/13 omega 5-pmv-cwq-fish oil 1,000 mg (120 mg-180 mg) capsule 1,000 mg PO QDAY cap 01/06/18 glimepiride 4 mg tablet 4 mg PO QAM 02/26/19 metformin 500 mg tablet,extended release 24 hr 1,000 mg PO BID tab 07/25/20 pioglitazone 15 mg tablet 30 mg PO QODAY 90 Days #90 tab 07/25/20 atorvastatin 80 mg tablet 80 mg PO DAILY #90 tab 12/29/20 lisinopril 2.5 mg tablet 2.5 mg PO DAILY #90 tab 12/29/20 clopidogrel 75 mg tablet 75 mg PO DAILY 01/01/21 gabapentin 800 mg tablet 800 mg PO BID 01/01/21 nitroglycerin 0.4 mg sublingual tablet 0.4 mg SUBLINGUAL Q5M PRN #25 tab 01/01/21 carvedilol 3.125 mg tablet 3.125 mg PO BID #180 tab 01/03/21 amlodipine 5 mg tablet 5 mg PO DAILY #90 tab 03/21/21
== END 2021-04-27 09:52 | disposition home or self-care (01) ==
LOC: CLSP 06:27 → PCU 12:10
PROVIDERS: Specialist; PCP Family Medicine; Referring Provider Internal Medicine Cardiovascular Disease; Visit Provider Internal Medicine Cardiovascular Disease
DX: I25.118 Atherosclerotic heart disease of native coronary artery with other forms of angina pectoris (principal); E11.9 Type 2 diabetes mellitus without complications; I10 Essential (primary) hypertension; E78.5 Hyperlipidemia, unspecified; N40.0 Benign prostatic hyperplasia without lower urinary tract symptoms; E66.9 Obesity, unspecified; Z79.82 Long term (current) use of aspirin; Z79.84 Long term (current) use of oral hypoglycemic drugs; Z79.02 Long term (current) use of antithrombotics/antiplatelets; Z95.5 Presence of coronary angioplasty implant and graft
CPT/HCPCS: 36415; 80053; 82962; 85027; 92928; 93005; 93458; 97802; 99152; 99153; C1874; C1887; J7030; J7040; Q9967; C1725; C1769; C1894; C9600

== ENCOUNTER 2021-06-08 11:28 | Emergency (ER) | payer MEDICARE, SELFPAY ==
[2020-09-11 08:28] VITALS: BMI 29.2
[2021-06-08 11:29] VITALS: BP 138/78; PULSE 81; RESP 20; TEMP 36.6; O2SAT 98; BMI 26.4
--- NOTE | 2021-06-08 11:49 | EKG12_ITS ---
Test Reason : SOB Blood Pressure : / mmHG Vent. Rate : 071 BPM Atrial Rate : 071 BPM P-R Int : 118 ms QRS Dur : 084 ms QT Int : 368 ms P-R-T Axes : 042 025 -15 degrees QTc Int : 399 ms Normal sinus rhythm Normal ECG Confirmed by CHANG POTTER, MERI ([id number]), marketing editor CODY YOON ([id number]) on 06/11/2021 12:37:35 PM Referred By: PL Confirmed By:KARI DOWNING MD
[2021-06-08 11:50] VITALS: BP 91/64; PULSE 74; RESP 16; TEMP 36.3; O2SAT 98; O2SAT 99
--- NOTE | 2021-06-08 11:50 | ED.VIS.DYS ---
HPI History of Present Illness Chief Complaint: Shortness of Breath Informant: patient Narrative Narrative: Patient presents after an episode of dyspnea with exertion. Patient states that 2 days ago he got outpatient Covid test that was positive. At that time he just had some mild myalgias. He has some chronic sinus symptoms but that is not new or different. His son had multiple symptoms of Covid and tested positive so he figured he be tested while he was there with his son. He started coughing over the last day or so. No nausea vomiting. No diarrhea. Today he carried to large sacks of water bottles. He noticed that he got a little short of breath when he did this. He did not have chest pain or pressure. The symptoms are gone now. He states that he does not think that would normally cause the dyspnea. He has not been having any sputum production. No fever. He is really asymptomatic now. Patient is also concerned as he has a long history of heart disease. He had stent placement again in the end of April. He is generally been feeling well. He is taking all his meds including his Plavix. When he was walked here, he had saturations at 97% while ambulating. However he was not carrying heavy objects and did not have symptoms. [facility] Medical History Arteriosclerotic heart disease (ASHD) Atherosclerotic heart disease of [place] coronary artery without angina pectoris Bilateral carotid artery stenosis BPH (benign prostatic hyperplasia) DDD (degenerative disc disease) Elevated LFTs Essential (primary) hypertension Hyperlipidemia Obesity Sciatica Syncope Type 2 diabetes mellitus Home Medications aspirin 81 mg PO DAILY@0800 09/13/13 [History Last Taken 04/26/21] omega 0-joy-lso-fish oil 1,000 mg (120 mg-180 mg) capsule 1,000 mg PO QDAY cap 01/06/18 [History Last Taken Unknown] metformin 500 mg tablet,extended release 24 hr 1,000 mg PO BID tab 07/25/20 [History Last Taken 04/25/21] atorvastatin 80 mg tablet 80 mg PO DAILY #90 tab 12/29/20 [Rx Last Taken Unknown] lisinopril 2.5 mg tablet 2.5 mg PO DAILY #90 tab 12/29/20 [Rx Last Taken 04/26/21] clopidogrel 75 mg tablet 75 mg PO DAILY 01/01/21 [History Last Taken 04/26/21] gabapentin 800 mg tablet 800 mg PO BID 01/01/21 [History Last Taken Unknown] nitroglycerin 0.4 mg sublingual tablet 0.4 mg SUBLINGUAL Q5M PRN #25 tab 01/01/21 [Rx Last Taken Unknown] carvedilol 3.125 mg tablet 3.125 mg PO BID #180 tab 01/03/21 [Rx Last Taken 04/26/21] amlodipine 5 mg tablet 5 mg PO DAILY #90 tab 03/21/21 [Rx Last Taken 04/26/21] Allergy/AdvReac Type Severity Reaction Status Date / Time perfumes Allergy unknown Uncoded 06/08/21 11:31 Family History Sister CAD (coronary artery disease) CVA (cerebral vascular accident) Diabetes Myocardial infarction Hx of CABG Mother Cancer Lung CA Surgical History History of cataract surgery History of coronary artery stent placement (04/26/21) History of hand surgery History of left heart catheterization (02/01/19) Hx of appendectomy Social History Smoking Status: Never smoker alcohol intake: never substance use type: does not use caffeine: Yes Type: coffee what type of physical activity do you participate in: none seatbelt use: always do you feel safe at home: Yes ROS ROS ED Constitutional Constitutional ED: Denies chills, fever(s) or weight loss Eyes Eyes: Denies blurry vision or change in vision ENT ENT ED: Reports rhinorrhea; Denies sore throat Cardiovascular Cardiovascular: Denies chest pain, orthopnea, palpitations, paroxysmal nocturnal dyspnea or racing heartbeat Respiratory/Chest Respiratory/Chest: Reports cough, dyspnea and dyspnea on exertion; Denies orthopnea, paroxysmal nocturnal dyspnea or sputum Gastrointestinal Gastrointestinal: Denies abdominal pain, diarrhea, nausea or vomiting Genitourinary Genitourinary ED: Denies dysuria or hematuria Musculoskeletal Musculoskeletal: Reports myalgias Integumentary Denies rash Neurologic Neurologic: Denies headache(s) or weakness Psychiatric Psychiatric: Denies depression Endocrine Endocrinology: Denies polydipsia or polyuria Hematologic/Lymphatic Hematologic/Lymphatic: Denies easy bleeding or easy bruising Allergic/Immunologic Allergic/Immunologic ED: Denies urticaria EXAM Physical Exam Const Vital Signs: 06/08/21 11:29 06/08/21 11:50 06/08/21 12:27 Temperature 97.9 F 97.4 F L 98.0 F Temperature Source Temporal Oral Temporal Pulse Rate 81 74 74 Respiratory Rate 20 H 16 16 Respiratory Effort Normal Respiratory Depth Normal Respiratory Pattern Normal Blood Pressure 138/78 H 91/64 114/79 Blood Pressure Mean 98 73 90 Pulse Ox 98 99 96 Oxygen Delivery Method Room Air Room Air Room Air 06/08/21 13:06 Temperature 97.6 F L Temperature Source Temporal Pulse Rate 65 Respiratory Rate 16 Respiratory Effort Respiratory Depth Respiratory Pattern Blood Pressure 113/61 Blood Pressure Mean 78 Pulse Ox 96 Oxygen Delivery Method Room Air Positive well nourished and well developed General Appearance ED: well developed and NAD HEENT Reports moist mucous membranes Negative for atraumatic or trauma Eyes General Eye ED: Negative for pale conjunctiva or scleral icterus Neck no JVD Resp normal respiratory effort and clear to auscultation bilaterally Auscultation: Negative for rales, rhonchi or wheezes Cardio regular rate and regular rhythm GI non-tender Palpation: soft Back/Spine no CVA tenderness and normal to inspection Extremity normal to inspection General Extremety ED: Negative for edema or tenderness General Extremity: Negative for edema Neuro oriented x3 Sensorium / Orientation: alert Psych mental status grossly normal Skin Lesions: no lesions Rashes: no rashes MDM MDM MDM Narrative Medical decision making narrative: Patient's white count is a bit low but this is very commonly seen with Covid in the area carries the diagnosis of Covid. Electrolytes are overall unremarkable. Troponin is negative at 8. X-ray shows no acute process. Patient never had chest pain with this. He had stenting back the end of April. He is asymptomatic now. I think this is likely symptoms due to his Covid. We walked him and his saturations were good at 97% and he had no symptoms. I explained that we will set him up for outpatient monoclonal therapy. If he develops chest pain, recurrent dyspnea or other symptoms he may need to come in. He has early on in his symptoms. He still has potential to get ill but at this point I do not think he needs to come in the hospital. Lab Data Attestation: I reviewed the patient's lab results. Labs: Laboratory Results - last 24 hr 06/08/21 06/08/21 06/08/21 11:45 11:45 11:45 WBC 2.8 L RBC 4.49 L Hgb 13.2 Hct 39.7 L MCV 88.4 MCH 29.4 MCHC 33.2 RDW Std Deviation 43.4 RDW Coeff of Megan 13.3 Plt Count 181 MPV 9.7 Immature Gran % (Auto) 0.000 Neut % (Auto) 55.1 Lymph % (Auto) 30.0 [place] % (Auto) 13.4 H Eos % (Auto) 1.1 Baso % (Auto) 0.4 Absolute Neuts (auto) 1.6 L Absolute Lymphs (auto) 0.85 Nucleated RBC % 0 Sodium 136 Potassium 4.0 Chloride 103 Carbon Dioxide 24.0 Anion Gap 9 BUN 22 H Creatinine 1.20 Estim Creat Clear Calc 58.92 Est GFR (MDRD) Af Amer 77 Est GFR (MDRD) Non-Af 64 BUN/Creatinine Ratio 18.3 Glucose 191 H Calcium 8.9 Troponin I High Sens 8 Radiography Diagnostic Testing: Clinical Impression(s) from Imaging Studies Chest X-Ray 06/08/21 12:10 IMPRESSION: Stable, nonacute portable x-ray examination of the chest. Electronically Signed: Julian Casanova MD (Brooks) at 12:36 EDT , Service support , EKG Initial EKG: Comments: EKG done for dyspnea read by me showed normal sinus rhythm with a rate of 71. Mild baseline variation. However, no acute ST elevation or depression. No ectopy. AR interval, QRS duration and QTc normal. Discharge Plan Triage Chief Complaint: Shortness of Breath ED Provider: Nicko Rbaago Dx/Rx/DC Orders Clinical Impression: COVID, DAN (dyspnea on exertion) Instructions: Caring for Someone Who Has COVID-19 Prescriptions: No Action omega 4-iql-xxf-fish oil [Fish Oil] 1,000 mg (120 mg-180 mg) capsule 1,000 mg PO QDAY RF: 0 metformin 500 mg tablet extended release 24 hr 1,000 mg PO BID RF: 0 gabapentin 800 mg tablet 800 mg PO BID RF: 0 clopidogrel [Plavix] 75 mg tablet 75 mg PO DAILY RF: 0 nitroglycerin 0.4 mg tablet, sublingual 0.4 mg SUBLINGUAL Q5M PRN (Reason: Chest Pain) Qty: 25 RF: 6 aspirin 81 MG tablet 81 mg PO DAILY@0800 RF: 0 atorvastatin 80 mg tablet 80 mg PO DAILY Qty: 90 RF: 3 lisinopril 2.5 mg tablet 2.5 mg PO DAILY Qty: 90 RF: 3 carvedilol [Coreg] 3.125 mg tablet 3.125 mg PO BID Qty: 180 RF: 3 amlodipine 5 mg tablet 5 mg PO DAILY Qty: 90 RF: 3 Other Ambulatory Orders: COVID Outpatient Monoclonal Antibody Referral (Routine) Timeframe: 1 Day Facility: [facility] - Location: [facility] Ordered By: Dr. Nicko Rabago Primary Care Provider: Nadir Abdalla Referrals: Nadir Abdalla MD [Primary Care Provider] - 3-5 Days Disposition Disposition: Home, Self Care
[2021-06-08 12:00] LABS: Absolute Lymphocyte Count 0.85 X10^3/uL (0.83-4.51); Absolute Neutrophil Count 1.6 X10^3/uL (2.0-7.7); Basophil# 0.01 X10^3/uL; Basophil% 0.4 % (0-1); Eosinophil# 0.03 X10^3/uL; Eosinophils% 1.1 % (0-5); Hematocrit 39.7 % (40-54); Hemoglobin 13.2 g/dL (13.0-16.5); Lymphocyte # 0.85 X10^3/ul (0.83-4.51); Mean Corp Hgb Conc 33.2 g/dL (32-36); Mean Corpuscular Hgb 29.4 pg (27.0-32.0); Mean Corpuscular Volume 88.4 fL (80-94); Mean Platelet Vol. 9.7 fl (6.2-12.0); Monocyte# 0.38 X10^3/uL; Monocyte% 13.4 % (0-10); NRBC Flagged by Analyzer 0 % (0-5); Neutrophil # 1.56 X10^3/uL (2.7-7.7); Neutrophil % 55.1 % (47-70); Platelet Count 181 K/mm3 (150-450); RBC Distribution Width CV 13.3 % (11.6-14.6); RBC Distribution Width SD 43.4 fl (35.1-43.9); Red Blood Count 4.49 M/mm3 (4.6-6.2); White Blood Count 2.8 K/mm3 (4.4-11.0)
[2021-06-08 12:10] LABS: Anion Gap 9 (5-15); BUN 22 mg/dL (7-18); BUN/Creat Ratio 18.3 RATIO (10-20); Calcium,Total 8.9 mg/dL (8.5-10.1); Chloride 103 mmol/L (98-107); EST Glomerular Filtration Rate 64 mL/min (>60); Est Glom Filt Rate - Afr Amer 77 mL/min (>60); Estimated Creatinine Clearance 58.92 ml/min; Glucose 191 mg/dL (74-106); Sodium Level 136 mmol/L (136-145)
--- NOTE | 2021-06-08 12:10 | RAD_ITS ---
STUDY: X-RAY CHEST REASON FOR EXAM: Male, 66 years old. cough, covid TECHNIQUE: AP COMPARISON: 01/12/2021 FINDINGS: EKG leads project over the chest. Mild hypoinflation but similar appearing since prior study. There is no demonstrated pleural abnormality. Normal size heart. Normal mediastinum and bonnie. Normal visualized pulmonary arteries. Normal visualized aortic arch and descending thoracic aorta. Normal visualized thoracic spine. Normal visualized ribs, clavicles, and shoulders. There is no demonstrated abnormality of the visualized soft tissue structures of the upper abdomen. RAD/Chest 1 View (Portable) IMPRESSION: Stable, nonacute portable x-ray examination of the chest. Electronically Signed: Julian Casanova MD (Brooks) at 12:36 EDT , Service support ,
[2021-06-08 12:27] VITALS: BP 114/79; PULSE 74; RESP 16; TEMP 36.7; O2SAT 96
[2021-06-08 13:06] VITALS: BP 113/61; PULSE 65; RESP 16; TEMP 36.4; O2SAT 96
[2021-06-08 13:33] LABS: Troponin-I HS 8 pg/mL (3.0-78.0)
[2021-06-08 14:22] VITALS: BP 123/70; PULSE 68; RESP 15; O2SAT 97
== END 2021-06-08 14:24 | disposition home or self-care (01) ==
PROVIDERS: Emergency Provider Emergency Medicine; PCP Family Medicine
DX: U07.1 COVID-19 (principal); I25.10 Atherosclerotic heart disease of native coronary artery without angina pectoris; E11.9 Type 2 diabetes mellitus without complications; I10 Essential (primary) hypertension; E78.5 Hyperlipidemia, unspecified; N40.0 Benign prostatic hyperplasia without lower urinary tract symptoms; E66.9 Obesity, unspecified; Z79.84 Long term (current) use of oral hypoglycemic drugs; Z79.02 Long term (current) use of antithrombotics/antiplatelets; Z79.82 Long term (current) use of aspirin; Z79.899 Other long term (current) drug therapy; Z95.5 Presence of coronary angioplasty implant and graft
CPT/HCPCS: 71045; 80048; 84484; 85025; 93005; 99284; A4216

== ENCOUNTER 2021-06-11 15:00 | Outpatient (CLI) | payer MEDICARE, SELFPAY ==
[2020-09-11 08:28] VITALS: BMI 29.2
[2021-06-11 15:23] VITALS: BP 105/67; PULSE 73; RESP 16; TEMP 36.7; O2SAT 98; BMI 26.4
[2021-06-11] MEDS: 0.9% Saline Lock 10 ML Syringe IV (15:28)
[2021-06-11 16:25] VITALS: BP 105/54; PULSE 65; RESP 16; TEMP 36.6; O2SAT 98
[2021-06-11 17:11] VITALS: BP 120/56; PULSE 65; RESP 16; TEMP 36.7; O2SAT 99
== END 2021-06-11 17:25 | disposition home or self-care (01) ==
LOC: MS3OUT 15:00 → MS3 15:01
PROVIDERS: PCP Family Medicine; Referring Provider Nurse Practitioner Adult Health; Visit Provider Nurse Practitioner Adult Health
DX: Z23 Encounter for immunization (principal); U07.1 COVID-19
CPT/HCPCS: J7050; M0243; A4216; Q0240

== ENCOUNTER → 2021-06-27 | Outpatient (CLI) | payer MEDICARE, SELFPAY ==
[2020-09-11 08:28] VITALS: BMI 29.2
[2021-06-27 16:46] LABS: D-Dimer Quantitative (DVT/PE) 0.71 FEU/ug/m (0.27-0.49)
== END | disposition home or self-care (01) ==
LOC: LABSPEC 16:13
PROVIDERS: PCP Family Medicine; Referring Provider Nurse Practitioner Primary Care; Visit Provider Nurse Practitioner Primary Care
DX: R06.02 Shortness of breath (principal); R07.9 Chest pain, unspecified
CPT/HCPCS: 85379

== ENCOUNTER 2021-07-20 15:23 | Inpatient (IN) | payer MEDICARE, SELFPAY ==
[2020-09-11 08:28] VITALS: BMI 29.2
[2021-07-20] VITALS (11 sets, daily range): BP systolic 124–149; BP diastolic 59–76; PULSE 64–81; RESP 16–20; TEMP 36.3–36.6; O2SAT 96–100; BMI 24.6; BMI 25.9
--- NOTE | 2021-07-20 15:35 | EKG12_ITS ---
Test Reason : CP Blood Pressure : / mmHG Vent. Rate : 089 BPM Atrial Rate : 089 BPM P-R Int : 148 ms QRS Dur : 086 ms QT Int : 354 ms P-R-T Axes : 067 050 010 degrees QTc Int : 430 ms Normal sinus rhythm Normal ECG Confirmed by SHAHID POTTER, HUSSAIN ([id number]), purchasing expeditor CODY YOON ([id number]) on 07/23/2021 1:15:55 PM Referred By: PETER Confirmed By:HUSSAIN KEY MD
--- NOTE | 2021-07-20 15:35 | RAD_ITS ---
STUDY: XR Chest 1 View 07/20/2021 3:58 PM REASON FOR EXAM: Male, 66 years old. CHEST PAIN chest pain COMPARISON: 10.8 TECHNIQUE: XR Chest 1 View FINDINGS: There is no demonstrated pleural abnormality. Normal heart size. Normal mediastinum. Normal bonnie. Prominent appearing increased interstitial lung markings. Normal visualized pulmonary arteries. There is atherosclerotic calcification of the aortic arch with tortuosity. There are diffuse degenerative changes of the visualized thoracic spine. There is degenerative osteoarthritis of the bilateral shoulders. There is no demonstrated abnormality of the visualized soft tissue structures of the upper abdomen. RAD/Chest 1 View (Portable) IMPRESSION: There are no acute findings. Electronically Signed: Rafa Whiting MD at 16:11 EST , Service support ,
[2021-07-20 15:46] LABS: Absolute Lymphocyte Count 1.34 X10^3/uL (0.83-4.51); Absolute Neutrophil Count 3.8 X10^3/uL (2.0-7.7); Basophil# 0.05 X10^3/uL; Basophil% 0.8 % (0-1); Eosinophil# 0.28 X10^3/uL; Eosinophils% 4.6 % (0-5); Hematocrit 34.6 % (40-54); Hemoglobin 11.7 g/dL (13.0-16.5); Lymphocyte # 1.34 X10^3/ul (0.83-4.51); Lymphocyte % 22.1 % (19-41); Mean Corp Hgb Conc 33.8 g/dL (32-36); Mean Corpuscular Hgb 29.3 pg (27.0-32.0); Mean Corpuscular Volume 86.5 fL (80-94); Mean Platelet Vol. 9.8 fl (6.2-12.0); Monocyte# 0.54 X10^3/uL; Monocyte% 8.9 % (0-10); NRBC Flagged by Analyzer 0 % (0-5); Neutrophil # 3.83 X10^3/uL (2.7-7.7); Neutrophil % 63.3 % (47-70); Platelet Count 218 K/mm3 (150-450); RBC Distribution Width CV 13.4 % (11.6-14.6); White Blood Count 6.1 K/mm3 (4.4-11.0)
[2021-07-20 15:59] LABS: Anion Gap 9 (5-15); BUN 28 mg/dL (7-18); BUN/Creat Ratio 28.7 RATIO (10-20); Chloride 107 mmol/L (98-107); Creatinine, Serum 0.98 mg/dL (0.70-1.30); EST Glomerular Filtration Rate 81 mL/min (>60); Est Glom Filt Rate - Afr Amer 98 mL/min (>60); Estimated Creatinine Clearance 72.14 ml/min; Glucose 183 mg/dL (74-106); Sodium Level 137 mmol/L (136-145); Troponin-I HS 7 pg/mL (3.0-78.0)
--- NOTE | 2021-07-20 16:10 | ED.VIS.CHEST ---
HPI History of Present Illness Chief Complaint: Chest Pain Detail of Chief Complaint: Chest pain Informant: patient Onset/Context/Timing Current Severity: 11/08 Worsened By: Exertion Narrative Narrative: Patient presents to the emergency department complaint of chest pain that started 3 hours ago. Patient states that he was walking into a store when it started. Patient took one of his nitros and initially did not help but then when the pain came back he took a second nitro and seemed to help. He describes a pressure type pain in the center of his chest. The pain does not really seem to radiate anywhere but complain of some numbness and tingling in his left hand. Patient tells me that he took 4 baby aspirin. Patient has history of coronary artery disease with 4 cardiac stents and his last one was in April of this year. Patient tells me the pain feels similar to what he had when he required the stenting. He denies recent travel or surgery. He denies any recent illness although he did have Covid about 6 months ago and he is been feeling short of breath since that time. He complains of exertional dyspnea. Prior Similar Symptoms: Yes PFSH PFS Medical History Arteriosclerotic heart disease (ASHD) Atherosclerotic heart disease of [place] coronary artery without angina pectoris Bilateral carotid artery stenosis BPH (benign prostatic hyperplasia) DDD (degenerative disc disease) Elevated LFTs Essential (primary) hypertension Hyperlipidemia Obesity Sciatica Syncope Type 2 diabetes mellitus Home Medications aspirin 81 mg PO DAILY@0800 09/13/13 [History Last Taken 04/26/21] omega 4-iem-xki-fish oil 1,000 mg (120 mg-180 mg) capsule 1,000 mg PO QDAY cap 01/06/18 [History Last Taken Unknown] metformin 500 mg tablet,extended release 24 hr 1,000 mg PO BID tab 07/25/20 [History Last Taken 04/25/21] atorvastatin 80 mg tablet 80 mg PO DAILY #90 tab 12/29/20 [Rx Last Taken Unknown] lisinopril 2.5 mg tablet 2.5 mg PO DAILY #90 tab 12/29/20 [Rx Last Taken 04/26/21] gabapentin 800 mg tablet 800 mg PO DAILY 01/01/21 [History Last Taken Unknown] nitroglycerin 0.4 mg sublingual tablet 0.4 mg SUBLINGUAL Q5M PRN #25 tab 05/03/21 [Rx Last Taken Unknown] carvedilol 3.125 mg tablet 3.125 mg PO BID #180 tab 01/03/21 [Rx Last Taken 04/26/21] amlodipine 5 mg tablet 5 mg PO DAILY #90 tab 03/21/21 [Rx Last Taken 04/26/21] clopidogrel 75 mg tablet 75 mg PO DAILY #90 tab 07/04/21 [Rx Last Taken Unknown] Allergy/AdvReac Type Severity Reaction Status Date / Time perfumes Allergy unknown Uncoded 07/20/21 15:33 Family History Sister CAD (coronary artery disease) CVA (cerebral vascular accident) Diabetes Myocardial infarction Hx of CABG Mother Cancer Lung CA Surgical History History of cataract surgery History of coronary artery stent placement (04/26/21) History of hand surgery History of left heart catheterization (02/01/19) Hx of appendectomy Social History Smoking Status: Never smoker alcohol intake: never substance use type: does not use caffeine: Yes Type: coffee what type of physical activity do you participate in: none seatbelt use: always do you feel safe at home: Yes ROS ROS ED Review of Systems ROS Unobtainable: other Constitutional Constitutional ED: Reports lethargy; Denies chills, fever(s), sweats or weight loss Eyes Eyes: Denies blurry vision, change in vision or diplopia ENT ENT ED: Denies rhinorrhea or sore throat Cardiovascular Cardiovascular: Reports chest pain and racing heartbeat; Denies orthopnea Respiratory/Chest Respiratory/Chest: Reports dyspnea and dyspnea on exertion; Denies cough, orthopnea or sputum Gastrointestinal Gastrointestinal: Denies abdominal pain, diarrhea, nausea or vomiting Genitourinary Genitourinary ED: Denies dysuria, hematuria or urinary frequency Musculoskeletal Musculoskeletal: Denies arthralgias, back pain, myalgias or neck pain Integumentary Denies abscess, Abrasions or rash Neurologic Neurologic: Denies headache(s) or weakness Psychiatric Psychiatric: Denies anxiety, depression or suicidal thoughts Endocrine Endocrinology: Denies polydipsia, polyphagia or polyuria Hematologic/Lymphatic Hematologic/Lymphatic: Denies easy bleeding, easy bruising or lymphadenopathy Allergic/Immunologic Allergic/Immunologic ED: Denies mouth swelling, tongue swelling or urticaria EXAM Physical Exam Const Vital Signs: 07/20/21 15:30 07/20/21 16:03 07/20/21 16:04 Temperature 97.8 F Temperature Source Temporal Pulse Rate 81 78 Respiratory Rate 16 16 Respiratory Effort Normal Blood Pressure 139/59 H 135/76 H Blood Pressure Mean 85 95 Pulse Ox 98 96 Oxygen Delivery Method Room Air Room Air 07/20/21 16:06 07/20/21 16:21 07/20/21 17:00 Temperature Temperature Source Pulse Rate 78 71 Respiratory Rate 19 H Respiratory Effort Blood Pressure 135/76 H 124/68 H Blood Pressure Mean 86 Pulse Ox 97 96 Oxygen Delivery Method Room Air 07/20/21 18:00 Temperature 97.5 F L Temperature Source Temporal Pulse Rate 73 Respiratory Rate 20 H Respiratory Effort Blood Pressure 132/74 H Blood Pressure Mean 93 Pulse Ox 97 Oxygen Delivery Method Positive well nourished and well developed General Appearance ED: well developed and NAD HEENT Reports TM's clear and moist mucous membranes normocephalic and atraumatic; Negative for trauma or tenderness Tympanic Membrane ED: Yes TM's clear Eyes PERRL and EOMs intact bilaterally General Eye ED: Negative for pale conjunctiva or scleral icterus Neck no lymphadenopathy, supple and no JVD General: Negative for tenderness Chest Wall inspection of chest normal and palpation of chest normal Chest: Negative for tenderness Resp normal respiratory effort and clear to auscultation bilaterally Effort and Inspection: Negative for respiratory distress or pain with movement Auscultation: Negative for rhonchi, wheezes or diminished lung sounds Cardio regular rate, regular rhythm, S1 normal heart sound, S2 normal heart sound and no murmurs Peripheral Pulses: pulses 2+ throughout GI normal to inspection, nondistended, normoactive bowel sounds, soft to palpation, non-tender, non-distended and no masses Back/Spine no CVA tenderness and no thoracic nor lumbar tenderness Extremity normal to inspection General Extremety ED: Negative for edema General Extremity: Negative for edema Neuro oriented x3, CN's II-XII intact bilaterally, no sensory deficits noted and gait normal Sensorium / Orientation: awake, alert, oriented to person, oriented to place and oriented to time Motor Exam: strength 5/5 throughout and strength abnormal Psych mental status grossly normal Skin no rashes or lesions noted and no wounds Heart Score History: Moderately Suspicious ECG: Nonspecific Repolarization Age: >/= 65 years Risk Factors: >/= 3 Risk Factors or History of CAD Troponin: </= Normal Limit Score: 6 MDM MDM MDM Narrative Medical decision making narrative: IV line established on arrival. Patient placed on a school lunch monitor. He had an inch of Nitropaste placed to the anterior chest wall. Work-up was unremarkable however he did have more pain when he tried ambulate to the bathroom. Patient case discussed with soda fountain clerk as well as hospitalist will evaluate patient for admission. Patient has a heart score of 6. Lab Data Attestation: I reviewed the patient's lab results. Labs: Laboratory Results - last 24 hr 07/20/21 07/20/21 07/20/21 15:10 15:10 16:45 WBC 6.1 RBC 4.00 L Hgb 11.7 L Hct 34.6 L MCV 86.5 MCH 29.3 MCHC 33.8 RDW Std Deviation 42.0 RDW Coeff of Megan 13.4 Plt Count 218 MPV 9.8 Immature Gran % (Auto) 0.300 Neut % (Auto) 63.3 Lymph % (Auto) 22.1 [place] % (Auto) 8.9 Eos % (Auto) 4.6 Baso % (Auto) 0.8 Absolute Neuts (auto) 3.8 Absolute Lymphs (auto) 1.34 Nucleated RBC % 0 D-Dimer Quant (PE/DVT) 0.54 H* Sodium 137 Potassium 4.0 Chloride 107 Carbon Dioxide 21.0 Anion Gap 9 BUN 28 H Creatinine 0.98 Estim Creat Clear Calc 72.14 Est GFR (MDRD) Af Amer 98 Est GFR (MDRD) Non-Af 81 BUN/Creatinine Ratio 28.7 H Glucose 183 H Calcium 9.0 Troponin I High Sens 7 Radiography Chest X-Ray - ED: 1 View Diagnostic Testing: Clinical Impression(s) from Imaging Studies Chest X-Ray 07/20/21 15:35 IMPRESSION: There are no acute findings. Electronically Signed: Rafa Whiting MD at 16:11 EST , Service support , 1 view chest x-ray obtained interpreted by myself as no acute disease process. EKG Initial EKG: Attestation: I personally reviewed and interpreted this EKG as follows: Comments: Sinus rhythm with a ventricular rate of [address] changes noted when compared with prior EKG from 2020June 08 no significant changes noted. Prior EKG tracings: available for review Prior: Unchanged Discharge Plan Triage Chief Complaint: Chest Pain ED Provider: Zac Alvarado Dx/Rx/DC Orders Clinical Impression: Chest pain Prescriptions: No Action omega 2-fqb-zdg-fish oil [Fish Oil] 1,000 mg (120 mg-180 mg) capsule 1,000 mg PO QDAY RF: 0 metformin 500 mg tablet extended release 24 hr 1,000 mg PO BID RF: 0 gabapentin 800 mg tablet 800 mg PO DAILY RF: 0 nitroglycerin 0.4 mg tablet, sublingual 0.4 mg SUBLINGUAL Q5M PRN (Reason: Chest Pain) Qty: 25 RF: 6 aspirin 81 MG tablet 81 mg PO DAILY@0800 RF: 0 atorvastatin 80 mg tablet 80 mg PO DAILY Qty: 90 RF: 3 lisinopril 2.5 mg tablet 2.5 mg PO DAILY Qty: 90 RF: 3 carvedilol [Coreg] 3.125 mg tablet 3.125 mg PO BID Qty: 180 RF: 3 amlodipine 5 mg tablet 5 mg PO DAILY Qty: 90 RF: 3 clopidogrel [Plavix] 75 mg tablet 75 mg PO DAILY Qty: 90 RF: 3 Primary Care Provider: Nadir Abdalla Referrals: Nadir Abdalla MD [Primary Care Provider] - Disposition Disposition: Acute Care Hospital [facility]
[2021-07-20] MEDS: Nitroglycerin Oint 1 INCH PACKET TD (16:21)
[2021-07-20 17:24] LABS: D-Dimer Quantitative (DVT/PE) 0.54 FEU/ug/m (0.27-0.49)
--- NOTE | 2021-07-20 18:21 | HP.PCM.HOS_ITS ---
HPI - General General Date of Admission: 07/20/21 HPI Narrative PRESTON BATES, is a 66 M who presents with chest pain. Worse w exertion. [place] similar to prior [place]. Received nitro paste in ED. Dr. Cabrales was contacted through the ED and recommended admission. Currently, pt is CP free. [facility] Medical History (Updated 07/20/21 @ 18:[address] Jered Hughes DO) Arteriosclerotic heart disease (ASHD) Atherosclerotic heart disease of [place] coronary artery without angina pectoris Bilateral carotid artery stenosis BPH (benign prostatic hyperplasia) COVID-19 DDD (degenerative disc disease) Elevated LFTs Essential (primary) hypertension Hyperlipidemia Obesity Sciatica Syncope Type 2 diabetes mellitus Home Medications aspirin 81 mg PO DAILY@0800 09/13/13 [History Last Taken 04/26/21] omega 0-gud-poa-fish oil 1,000 mg (120 mg-180 mg) capsule 1,000 mg PO QDAY cap 01/06/18 [History Last Taken Unknown] metformin 500 mg tablet,extended release 24 hr 1,000 mg PO BID tab 07/25/20 [ History Last Taken 04/25/21] atorvastatin 80 mg tablet 80 mg PO DAILY #90 tab 12/29/20 [Rx Last Taken Unknown] lisinopril 2.5 mg tablet 2.5 mg PO DAILY #90 tab 12/29/20 [Rx Last Taken 04/26/21] gabapentin 800 mg tablet 800 mg PO DAILY 01/01/21 [History Last Taken Unknown] nitroglycerin 0.4 mg sublingual tablet 0.4 mg SUBLINGUAL Q5M PRN #25 tab 01/01/21 [Rx Last Taken Unknown] carvedilol 3.125 mg tablet 3.125 mg PO BID #180 tab 01/03/21 [Rx Last Taken 04/26/21] amlodipine 5 mg tablet 5 mg PO DAILY #90 tab 03/21/21 [Rx Last Taken 04/26/21] clopidogrel 75 mg tablet 75 mg PO DAILY #90 tab 07/04/21 [Rx Last Taken Unknown] Allergy/AdvReac Type Severity Reaction Status Date / Time perfumes Allergy unknown Uncoded 07/20/21 15:33 Family History Sister CAD (coronary artery disease) CVA (cerebral vascular accident) Diabetes Myocardial infarction Hx of CABG Mother Cancer Lung CA Surgical History History of cataract surgery History of coronary artery stent placement (04/26/21) History of hand surgery History of left heart catheterization (02/01/19) Hx of appendectomy Social History Smoking Status: Never smoker alcohol intake: never substance use type: does not use caffeine: Yes Type: coffee what type of physical activity do you participate in: none seatbelt use: always do you feel safe at home: Yes ROS ROS Narrative chronic SOB since COVID 19. No worsening SOB. Otherwise all ROS are reviewed and otherwise negative except as in HPI. Vital Signs Vital Signs Vital Signs: 07/20/21 15:30 07/20/21 16:03 07/20/21 16:04 Temperature 36.6 C Temperature Source Temporal Pulse Rate 81 78 Respiratory Rate 16 16 Respiratory Effort Normal Blood Pressure 139/59 H 135/76 H Blood Pressure Mean 85 95 Pulse Ox 98 96 Oxygen Delivery Method Room Air Room Air 07/20/21 16:06 07/20/21 16:21 07/20/21 17:00 Temperature Temperature Source Pulse Rate 78 71 Respiratory Rate 19 H Respiratory Effort Blood Pressure 135/76 H 124/68 H Blood Pressure Mean 86 Pulse Ox 97 96 Oxygen Delivery Method Room Air 07/20/21 18:00 Temperature 36.4 C L Temperature Source Temporal Pulse Rate 73 Respiratory Rate 20 H Respiratory Effort Blood Pressure 132/74 H Blood Pressure Mean 93 Pulse Ox 97 Oxygen Delivery Method Weight Weight: 75.75 kg Body Mass Index (BMI) 24.6 Physical Exam Const alert General Appearance: cooperative Resp normal respiratory effort, no retractions, no use of accessory muscles and clear to auscultation bilaterally Cardio regular rate, regular rhythm, S1 normal heart sound and S2 normal heart sound GI normal to inspection, nondistended, normoactive bowel sounds, soft to palpation and non-tender Extremity normal to inspection Neuro Sensorium / Orientation: awake and alert Results Lab / Micro Data Attestation: I reviewed the patient's lab results. Result Diagrams: 07/20/21 15:10 07/20/21 15:10 Labs: Laboratory Results - last 24 hr 07/20/21 15:10: WBC 6.1, RBC 4.00 L, Hgb 11.7 L, Hct 34.6 L, MCV 86.5, MCH 29.3, MCHC 33.8, RDW Std Deviation 42.0, RDW Coeff of Megan 13.4, Plt Count 218, MPV 9.8, Immature Gran % (Auto) 0.300, Neut % (Auto) 63.3, Lymph % (Auto) 22.1, [place] % (Auto) 8.9, Eos % (Auto) 4.6, Baso % (Auto) 0.8, Absolute Neuts (auto) 3.8, Absolute Lymphs (auto) 1.34, Nucleated RBC % 0 07/20/21 15:10: Sodium 137, Potassium 4.0, Chloride 107, Carbon Dioxide 21.0, Anion Gap 9, BUN 28 H, Creatinine 0.98, Estim Creat Clear Calc 72.14, Est GFR (MDRD) Af Amer 98, Est GFR (MDRD) Non-Af 81, BUN/Creatinine Ratio 28.7 H, Glucose 183 H, Calcium 9.0, Troponin I High Sens 7 07/20/21 16:45: D-Dimer Quant (PE/DVT) 0.54 H* EKG Initial EKG: Attestation: I personally reviewed and interpreted this EKG as follows: Radiology Impression Chest X-Ray 07/20/21 15:35 IMPRESSION: There are no acute findings. Electronically Signed: Rafa Whiting MD at 16:11 EST , Service support , Assessment & Plan Assessment/Plan (1) Chest pain: QUALIFIERS: Chest pain type: chest pain due to myocardial ischemia Ischemic chest pain type: stable angina pectoris Qualified Code(s): I20.8 - Other forms of angina pectoris PLAN: 1. stable angina work up thus far negative continue his CAD medications cycle troponin recheck EKG consult cardiology 2. CAD stable continue ASA, clopidogrel, HIS, lisinopril 3. DM2 hold metformin in case he needs a C SSI 4. Code status: he's unsure. I told him I will leave him as full code, unless he tells us otherwise. Charges/Coding Visit Charges OBSV E&M: 58463 Initial observation care L2
--- NOTE | 2021-07-20 21:07 | EKG12_ITS ---
Test Reason : AM EKG Blood Pressure : / mmHG Vent. Rate : 069 BPM Atrial Rate : 069 BPM P-R Int : 132 ms QRS Dur : 086 ms QT Int : 396 ms P-R-T Axes : 030 025 010 degrees QTc Int : 424 ms Normal sinus rhythm Normal ECG When compared with ECG of 22-JUL-2021 03:41, MANUAL COMPARISON REQUIRED, DATA IS UNCONFIRMED Confirmed by SHAHID POTTER, HUSSAIN ([id number]), avid editor CODY YOON ([id number]) on 07/24/2021 1:53:46 PM Referred By: HOSPITALIST Confirmed By:HUSSAIN KEY MD
[2021-07-20 21:21] LABS: Bedside Glucose 132 mg/dL (70-110)
[2021-07-20] MEDS: Acetaminophen 325 MG Tablet 650 MG PO (21:32)
[2021-07-20 21:51] LABS: Magnesium 2.1 mg/dL (1.6-2.6)
[2021-07-20] MEDS: Carvedilol 3.125 MG TABLET PO (21:55)
[2021-07-20 22:31] LABS: Troponin-I HS 9 pg/mL (3.0-78.0)
--- NOTE | 2021-07-20 23:15 | PCS.PANDOC ---
PANDEMIC DOCUMENTATION INITIATED: Date: 04/16/2021 Time: 190
[2021-07-21] VITALS (15 sets, daily range): BP systolic 101–143; BP diastolic 55–77; PULSE 62–82; RESP 13–18; TEMP 36.5–37.2; O2SAT 94–99
[2021-07-21 00:30] LABS: Troponin-I HS 8 pg/mL (3.0-78.0)
[2021-07-21] MEDS: oxyCODONE 5 MG Tablet PO (06:38)
[2021-07-21 07:00] LABS: Bedside Glucose 138 mg/dL (70-110)
[2021-07-21 07:05] LABS: Cholesterol 93 mg/dL (200); High Density Lipoprotein 42 mg/dL; Triglycerides 72 mg/dL; Very Low Density Lipoprotein 14 mg/dL (5-40)
[2021-07-21] MEDS: Gabapentin 800 MG Tablet PO (09:19)
[2021-07-21] MEDS: amLODIPine 5 MG Tablet PO (09:19)
[2021-07-21] MEDS: Carvedilol 3.125 MG TABLET PO ×2 (09:19→22:53)
[2021-07-21] MEDS: Atorvastatin Calcium 80 MG Tablet PO (09:20)
[2021-07-21] MEDS: Clopidogrel Bisulfate 75 MG Tablet PO (09:20)
[2021-07-21] MEDS: Aspirin E.C. 81 MG Tablet PO (09:20)
[2021-07-21] MEDS: Lisinopril 2.5 MG Tablet PO (09:21)
--- NOTE | 2021-07-21 14:14 | PCM.PN.HOSP ---
Subjective Subjective no further chest pain Objective Data Objective Data Vital Signs: Vital Signs Temp Pulse Resp BP Pulse Ox 37.2 C 63 16 129/67 H 98 07/21/21 09:13 07/21/21 11:02 07/21/21 09:13 07/21/21 09:13 07/21/21 09:13 Oxygen Delivery Method Room Air Weight: 79.5 kg Body Mass Index (BMI) 25.9 Intake & Output: Intake and Output for Last 24 Hours 07/19/21 07/20/21 07/21/21 23:59 23:59 23:59 Intake Total 1100 / 1100 Balance 1100 / 1100 Lab / Micro Data Result Diagrams: 07/20/21 15:10 07/20/21 15:10 Labs: Laboratory Results - last 24 hr 07/20/21 15:10: WBC 6.1, RBC 4.00 L, Hgb 11.7 L, Hct 34.6 L, MCV 86.5, MCH 29.3, MCHC 33.8, RDW Std Deviation 42.0, RDW Coeff of Megan 13.4, Plt Count 218, MPV 9.8, Immature Gran % (Auto) 0.300, Neut % (Auto) 63.3, Lymph % (Auto) 22.1, [place] % (Auto) 8.9, Eos % (Auto) 4.6, Baso % (Auto) 0.8, Absolute Neuts (auto) 3.8, Absolute Lymphs (auto) 1.34, Nucleated RBC % 0 07/20/21 15:10: Sodium 137, Potassium 4.0, Chloride 107, Carbon Dioxide 21.0, Anion Gap 9, BUN 28 H, Creatinine 0.98, Estim Creat Clear Calc 72.14, Est GFR (MDRD) Af Amer 98, Est GFR (MDRD) Non-Af 81, BUN/Creatinine Ratio 28.7 H, Glucose 183 H, Calcium 9.0, Troponin I High Sens 7 07/20/21 15:10: Magnesium 2.1 07/20/21 16:45: D-Dimer Quant (PE/DVT) 0.54 H* 07/20/21 21:13: POC Glucose 132 H 07/20/21 21:58: Troponin I High Sens 9 07/20/21 23:45: Troponin I High Sens 8 07/21/21 06:18: Triglycerides 72, Cholesterol 93, LDL Cholesterol 37, VLDL Cholesterol 14, HDL Cholesterol 42 07/21/21 06:34: POC Glucose 138 H Radiography Diagnostic Testing: Radiology Impression Chest X-Ray 07/20/21 15:35 IMPRESSION: There are no acute findings. Electronically Signed: Rafa Whiting MD at 16:11 EST , Service support , Physical Exam Const alert and no apparent distress Exam Limitations: no limitations Resp normal respiratory effort, no retractions, no use of accessory muscles and clear to auscultation bilaterally Cardio regular rate, regular rhythm, S1 normal heart sound and S2 normal heart sound GI normal to inspection, nondistended, normoactive bowel sounds, soft to palpation, non-tender and non-distended Neuro Sensorium / Orientation: awake Psych affect normal Assessment & Plan Assessment/Plan (1) Chest pain: QUALIFIERS: Chest pain type: chest pain due to myocardial ischemia Ischemic chest pain type: stable angina pectoris Qualified Code(s): I20.8 - Other forms of angina pectoris PLAN: 1. stable angina work up thus far negative continue his CAD medications cycle troponin recheck EKG consult cardiology 2. CAD stable continue ASA, clopidogrel, HIS, lisinopril 3. DM2 hold metformin in case he needs a [facility] SSI 4. Code status: he's unsure. I told him I will leave him as full code, unless he tells us otherwise. Charges/Coding Visit Charges OBSV E&M: 10228 Initial observation care L2
--- NOTE | 2021-07-21 16:34 | NURSING ---
Addendum entered by Nelson Garcia 07/21/21 17:39: 1634: NIHSS at this time 2 notable for minor paralysis L side of face and minor dysarthria. Dr. Hughes notified, activated stroke alert. VSS BGT 146. Original Note: Pt c/o intermitt HANNAH since admission. Currently 01/08. Pt states could be related to the nerves in my neck and shoulder...I hit my head a long time ago. Pt noticed himself at approx 1500 that he felt that he had a facial droop but did not relay findings to staff.
--- NOTE | 2021-07-21 16:41 | CT_ITS ---
We are attempting to reach an attending provider to discuss findings. An addendum with communication details will be sent when the communication is complete. EXAM: CT HEAD WITHOUT INTRAVENOUS CONTRAST CLINICAL INDICATION: r/o stroke TECHNIQUE: Multiple axial images were obtained of the head without intravenous contrast. This CT exam was performed using one or more of the following dose reduction techniques: automated exposure control, adjustment of the mA and/or kV according to patient size, and/or use of iterative reconstruction technique. This report was created using [employer] report [employer] technology. COMPARISON: None. FINDINGS: BRAIN AND EXTRA-AXIAL SPACES: Central parenchymal volume loss. White matter changes that are nonspecific but most commonly associated with chronic small vessel ischemic disease. No intra- or extra-axial hemorrhage. No intracranial mass or mass effect. Posterior fossa structures are unremarkable. Ventricles are appropriate for age. No hydrocephalus. Basal cisterns are patent. BONES/JOINTS: Unremarkable. No discrete lytic or blastic abnormalities. SINUSES: Right maxillary sinusitis. MASTOID AIR CELLS: Unremarkable. Clear. ORBITS: Visualized globes, extraocular muscles, optic nerves and retrobulbar fat appear unremarkable. OTHER FINDINGS: Aspects: 10 CT/STROKE Brain/Head without Cont IMPRESSION: No acute findings in the head/brain. Electronically Signed: Julian Casanova MD ([place]) at 17:03 EST , Service support ,
--- NOTE | 2021-07-21 16:43 | NURSING ---
patient having facial droop numbness called nurse stroke alert called Dr. mora in room now
--- NOTE | 2021-07-21 16:52 | CM.ED ---
SW Note Referral Source: Stroke Alert Referral Reason: Stroke Alert SW responded to stroke alert in PCU. No family present. SW spoke to charger operator and no SW needs at this time. SW remains available. Madhuri VERDUGO
[2021-07-21 16:56] LABS: Bedside Glucose 146 mg/dL (70-110)
--- NOTE | 2021-07-21 17:13 | CT_ITS ---
EXAM: CT ANGIOGRAPHY HEAD AND NECK WITH INTRAVENOUS CONTRAST CLINICAL INDICATION: CVA TECHNIQUE: [place]/head and neck CT angiography protocol performed with intravenous contrast. This CT exam was performed using one or more of the following dose reduction techniques: automated exposure control, adjustment of the mA and/or kV according to patient size, and/or use of iterative reconstruction technique. This report was created using [employer] report generation technology. MIP reconstructed images were created and reviewed. CONTRAST: IV 100mL Isovue-370 COMPARISON: None. FINDINGS: HEAD: RIGHT ANTERIOR CEREBRAL ARTERY: Unremarkable. No significant stenosis at the visualized segments. Anterior communicating artery is present. No aneurysm. RIGHT MIDDLE CEREBRAL ARTERY: Unremarkable. No significant stenosis at the visualized segments. No aneurysm. RIGHT POSTERIOR CEREBRAL ARTERY: origin. No occlusion or significant stenosis. No aneurysm. LEFT ANTERIOR CEREBRAL ARTERY: Unremarkable. No significant stenosis at the visualized segments. No aneurysm. LEFT MIDDLE CEREBRAL ARTERY: Unremarkable. No significant stenosis at the visualized segments. No aneurysm. LEFT POSTERIOR CEREBRAL ARTERY: Unremarkable. No occlusion or significant stenosis. No aneurysm. BASILAR ARTERY: Unremarkable. No significant stenosis. No aneurysm. GREAT VESSELS OF AORTIC ARCH: Unremarkable. Normal anatomy, patent. OTHER VASCULATURE: No vascular malformation. NECK: RIGHT COMMON CAROTID ARTERY: Unremarkable. No significant stenosis. No dissection or occlusion. RIGHT INTERNAL CAROTID ARTERY: Unremarkable. No significant stenosis. No dissection or occlusion. RIGHT EXTERNAL CAROTID ARTERY: Calcific, atherosclerosis causing 45% stenosis. No occlusion. RIGHT VERTEBRAL ARTERY: Unremarkable. No significant stenosis. No dissection or occlusion. LEFT COMMON CAROTID ARTERY: Unremarkable. No significant stenosis. No dissection or occlusion. LEFT INTERNAL CAROTID ARTERY: 60% stenosis with mixed density plaque. No dissection or occlusion. LEFT EXTERNAL CAROTID ARTERY: Unremarkable. No occlusion. LEFT VERTEBRAL ARTERY: Unremarkable. No significant stenosis. No dissection or occlusion. LUNG APICES: Unremarkable as visualized. SOFT TISSUES: Unremarkable. CAROTID STENOSIS REFERENCE USING NASCET CRITERIA: % ICA stenosis = (1 - narrowest ICA diameter/diameter of distal cervical ICA) x 100. Mild - <50% stenosis. Moderate - 50-69% stenosis. Severe - 70-94% stenosis. Near occlusion - 95-99% stenosis. Occluded - 100% stenosis. CT/STROKE CTA Head AND Neck W/Con IMPRESSION: No large vessel occlusion or intracranial aneurysm. Moderate left ICA stenosis. No carotid dissection. N.B. : The above Results were Read Back by Julian Casanova MD (Brooks) to Dr Ellen MD, and understanding confirmed on 07/21/2021 17:37:02 (ET). Electronically Signed: Julian Casanova MD (Brooks) at 17:38 EST , Service support ,
--- NOTE | 2021-07-21 17:20 | PCM.CONS.C ---
Assessment & Plan Assessment/Plan (1) Coronary artery disease with exertional angina: (2) Atherosclerotic heart disease of [place] coronary artery without angina pectoris: QUALIFIERS: [place] vs. transplanted heart: [place] heart Qualified Code(s): I25.10 - Atherosclerotic heart disease of [place] coronary artery without angina pectoris (3) History of coronary artery stent placement: (4) Essential (primary) hypertension: (5) Hyperlipidemia: QUALIFIERS: Hyperlipidemia type: unspecified Qualified Code(s): E78.5 - Hyperlipidemia, unspecified (6) Bilateral carotid artery stenosis: (7) Chest pain: QUALIFIERS: Chest pain type: chest pain due to myocardial ischemia Ischemic chest pain type: stable angina pectoris Qualified Code(s): I20.8 - Other forms of angina pectoris PLAN: This 67-year-old patient presented with symptoms of chest pain Subsequent evaluation by cardiac markers with high sensitive troponin negative Had extensive cardiac history with a history of PCI and stent of mid LAD 2016, subsequently in May 2020 had ostial and proximal left circumflex stent In October 2019 when he had a mid RCA stent Patient had a history of hyperlipidemia Hypertension History of mild to moderate carotid atherosclerosis. Cardiovascular assessment and recommendations; Agreed to continue on current medical treatment, added long-acting nitrate and Ranexa to the current medication. We will repeat series of cardiac biomarker 3. I discussed further evaluation with the patient with nuclear stress test echo versus cardiac catheterization Last cardiac catheterization by his primary appetizer packer Dr. Nickerson LV function preserved with the patency of the stent in the LAD, left circumflex with in-stent restenosis of the left circumflex of 60%. This clinical presentation is unstable angina and will maximize medical therapy and will discuss further evaluation with cardiac catheterization. Stroke alert is called as patient developed patient numbness and weakness on right side, neuro consult/telemedicine [facility]/telestroke consult Patient evaluated with a CT head which is negative, no TPA was initiated in this case From cardiac standpoint recommendation would be to continue medical treatment his chest pain resolved and will check a series of cardiac markers and once stable will evaluate with marker perfusion study. We will maximize antianginal medication, no indication for cardiac cath now. HPI Consult Data Date of Consult: 07/22/21 HPI Narrative Reason for Consultation: Evaluation of chest pain for a patient who had multi vessel PCI and stent HPI Narrative: PRESTON BATES, is a 66 M who presents [facility] Medical History (Updated 07/21/21 @ 10:38 by Griselda Bell) Atherosclerotic heart disease of [place] coronary artery without angina pectoris Bilateral carotid artery stenosis BPH (benign prostatic hyperplasia) COVID-19 DDD (degenerative disc disease) Elevated LFTs Essential (primary) hypertension Hyperlipidemia Obesity Sciatica Syncope Type 2 diabetes mellitus Home Medications aspirin 81 mg PO DAILY@0800 09/13/13 [History Last Taken 04/26/21] omega 5-yug-key-fish oil 1,000 mg (120 mg-180 mg) capsule 1,000 mg PO QDAY cap 01/06/18 [History Last Taken Unknown] metformin 500 mg tablet,extended release 24 hr 1,000 mg PO BID tab 07/25/20 [History Last Taken 04/25/21] atorvastatin 80 mg tablet 80 mg PO DAILY #90 tab 12/29/20 [Rx Last Taken Unknown] lisinopril 2.5 mg tablet 2.5 mg PO DAILY #90 tab 12/29/20 [Rx Last Taken 04/26/21] gabapentin 800 mg tablet 800 mg PO DAILY 01/01/21 [History Last Taken Unknown] nitroglycerin 0.4 mg sublingual tablet 0.4 mg SUBLINGUAL Q5M PRN #25 tab 01/01/21 [Rx Last Taken Unknown] carvedilol 3.125 mg tablet 3.125 mg PO BID #180 tab 01/03/21 [Rx Last Taken 04/26/21] amlodipine 5 mg tablet 5 mg PO DAILY #90 tab 03/21/21 [Rx Last Taken 04/26/21] clopidogrel 75 mg tablet 75 mg PO DAILY #90 tab 07/04/21 [Rx Last Taken Unknown] Allergy/AdvReac Type Severity Reaction Status Date / Time perfumes Allergy unknown Uncoded 07/20/21 21:15 Family History Sister CAD (coronary artery disease) CVA (cerebral vascular accident) Diabetes Myocardial infarction Hx of CABG Mother Cancer Lung CA Surgical History History of cataract surgery History of coronary artery stent placement (04/26/21) History of hand surgery History of left heart catheterization (02/01/19) Hx of appendectomy Social History Smoking Status: Never smoker alcohol intake: never substance use type: does not use caffeine: Yes Type: coffee what type of physical activity do you participate in: none seatbelt use: always do you feel safe at home: Yes Physical Exam Narrative Patient seen evaluated at bedside No further episode of chest pain reported Cardiovascular examination S1-S2 regular there is no murmur no systolic or diastolic murmur Chest examination clear to auscultation Examination abdomen soft Examination lower extremity no clubbing no cyanosis no extremity edema. Risk Stratification Risk Stratification Applicable: Yes Age >/= 65: Yes >/= 3 CAD Risk Factors (HTN, HLD, DM, family hx of CAD, or current smoker): Yes Aspirin Use in the Past 7 Days: Yes Severe Angina (>/= episodes in 24 hours): Yes EKG ST Changes >/= 0.5mm: No Positive Cardiac Marker: No SHARRI Risk Stratification Score: 4 SHARRI % Risk: 20% Risk Objective Data Vital Signs: Vital Signs Temp Pulse Resp BP Pulse Ox 97.7 F L 74 16 109/68 96 07/21/21 16:26 07/21/21 16:26 07/21/21 16:26 07/21/21 16:26 07/21/21 16:42 Oxygen Delivery Method Room Air Weight: 175 lb 4.28 oz Body Mass Index (BMI) 25.9 Intake & Output: Intake and Output for Last 24 Hours 07/19/21 07/20/21 07/21/21 23:59 23:59 23:59 Intake Total 1100 / 1100 Balance 1100 / 1100 Lab / Micro Data Result Diagrams: 07/20/21 15:10 07/20/21 15:10 Labs: Laboratory Results - last 24 hr 07/20/21 15:10: Magnesium 2.1 07/20/21 16:45: D-Dimer Quant (PE/DVT) 0.54 H* 07/20/21 21:13: POC Glucose 132 H 07/20/21 21:58: Troponin I High Sens 9 07/20/21 23:45: Troponin I High Sens 8 07/21/21 06:18: Triglycerides 72, Cholesterol 93, LDL Cholesterol 37, VLDL Cholesterol 14, HDL Cholesterol 42 07/21/21 06:34: POC Glucose 138 H 07/21/21 16:41: POC Glucose 146 H Cardiology Labs/Tests 07/20/21 15:10: Magnesium 2.1 07/20/21 16:45: D-Dimer Quant (PE/DVT) 0.54 H* 07/21/21 06:18: Triglycerides 72, Cholesterol 93, LDL Cholesterol 37, VLDL Cholesterol 14, HDL Cholesterol 42 Rhythm: EKG: ECHO: Stress Test: Cardiac Cath: PCI: CT Surgery: Holter monitor: EPS: PPM: CXR: Chest CT Scan: Radiography Diagnostic Testing: Radiology Impression Brain CT 07/21/21 16:41 IMPRESSION: No acute findings in the head/brain. Electronically Signed: Julian Casanova MD (Brooks) at 17:03 EST , Service support ,
--- NOTE | 2021-07-21 17:37 | PCM.HOSP.N ---
Hospitalist Note Patient developed right-sided facial numbness, droop and right arm numbness at 1500. He did not notify staff right away. I was notified around 1630 and stroke team was called. Patient had a CT and was evaluated by neurology. NIH was 2. No TPA was recommended. Patient underwent a head CT and CTA of the head and neck showed. Head CT showed no acute stroke but CTA preliminary is unremarkable but the final read is currently pending. Discussed with neurology and plan is to commence with the remainder of the stroke work-up with an MRI of his brain. Greater than 60 minutes of which greater than 50% time was direct involved patient care, discussed with neurology. Visit Charges Inpatient E&M: 58246 Subs Hosp L3
--- NOTE | 2021-07-21 17:39 | MRI_ITS ---
STUDY: MRI BRAIN WITHOUT CONTRAST REASON FOR EXAM: Male, 66 years old. Right-sided numbness TECHNIQUE: Standardized multiplanar fat and water weighted pulse sequences were obtained. COMPARISON: [address] FINDINGS: Brain parenchyma is intact without focal lesions, mass effect, extra parenchymal fluid collections, hydrocephalus or herniation. Major vascular flow structures are intact. Craniocervical junction is unremarkable. MRI/Brain without Contrast IMPRESSION: 1. Normal brain. 2. No acute or focal disease. Electronically Signed: Kaiser Stuart MD at 20:04 EST Tel , Service support ,
--- NOTE | 2021-07-21 17:40 | ECHOD_ITS ---
Reason For Study: TIA/CVA Procedure This was a 2D Doppler, Color Flow transthoracic echocardiogram. Bubble study performed. Exam performed in department. Left Ventricle Normal size and thickness. Left ventricular systolic function is normal. Stage 1 diastolic dysfunction. No regional wall motion abnormalities noted. Right Ventricle Normal RV size. Normal systolic function. Atria Normal left atrium. Normal right atrium. Bubble contrast study negative for right to left interatrial shunt. Mitral Valve Normal mitral valve. Tricuspid Valve Normal tricuspid valve. Mild (1+) tricuspid valve insufficiency. Pulmonary artery systolic pressure is 35 mmHg. Aortic Valve Trisinus/trileaflet aortic valve. Mild focal aortic valve calcification. Pulmonic Valve Normal pulmonic valve. Great Vessels Normal aortic root. The pulmonary artery is normal size. Normal inferior vena cava. Pericardium/Pleural No pericardial effusion. Medication Performed a rapid injection of agitated mix of 9 cc saline and 1cc air to assess for atrial septal defect. MMode/2D Measurements & Calculations LVIDd: 3.9 cm IVSd: 1.4 cm Ao root diam: 3.7 cm LVIDs: 2.4 cm LVPWd: 0.95 cm LA dimension: 3.2 cm RVDd: 3.9 cm FS: 38.3 % LAV(MOD-bp): 40.2 ml LA A4 area: 18.1 cm2 RA A4 area: 12.1 cm2 LAV(MOD-bp) Indexed: 20.6 ml/m2 LAV(MOD-sp2): 30.7 ml LAV(MOD-sp4): 44.3 ml Time Measurements MV dec time: 0.21 sec Doppler Measurements & Calculations MV E max dayday: 78.5 cm/sec Lat Peak E' Dayday: 7.2 cm/sec Med Peak E' Dayday: 9.3 cm/sec MV A max dayday: 126.4 cm/sec E/E' lat: 10.9 E/E' med: 8.4 MV E/A: 0.62 MV V2 max: 114.5 cm/sec MV P1/2t max dayday: 84.1 cm/sec Ao V2 max: 125.8 cm/sec MV max P.2 mmHg MV P1/2t: 82.4 msec Ao max P.3 mmHg MV V2 mean: 56.4 cm/sec MV dec slope: 299.1 cm/sec2 MV mean P.5 mmHg MV V2 VTI: 28.4 cm MVA(P1/2t): 2.7 cm2 LV V1 max: 78.2 cm/sec PA V2 max: 119.4 cm/sec TR max dayday: 279.8 cm/sec LV V1 max P.4 mmHg TR max P.3 mmHg ECHO/Echo Complete Interpretation Summary Normal size and thickness. Left ventricular systolic function is normal. Stage 1 diastolic dysfunction. Mild focal aortic valve calcification. Ordering Physician: Jered Hughes Referring Physician: BO GRADY Performed By: Charly Vang RCS
[2021-07-21 18:15] LABS: Troponin-I HS 6 pg/mL (3.0-78.0)
[2021-07-21] MEDS: Acetaminophen 325 MG Tablet 650 MG PO (18:42)
[2021-07-21 22:00] LABS: Bedside Glucose 170 mg/dL (70-110)
[2021-07-22] VITALS (10 sets, daily range): BP systolic 95–140; BP diastolic 60–73; PULSE 63–79; RESP 16–18; TEMP 36.4–37.2; O2SAT 94–100
--- NOTE | 2021-07-22 03:36 | EKG12_ITS ---
Test Reason : CP Blood Pressure : / mmHG Vent. Rate : 070 BPM Atrial Rate : 070 BPM P-R Int : 130 ms QRS Dur : 094 ms QT Int : 392 ms P-R-T Axes : 039 054 024 degrees QTc Int : 423 ms Normal sinus rhythm Normal ECG When compared with ECG of 20-JUL-2021 21:38, MANUAL COMPARISON REQUIRED, DATA IS UNCONFIRMED Confirmed by SHAHID POTTER, HUSSAIN ([id number]), editorial clerk CODY YOON ([id number]) on 07/24/2021 1:54:41 PM Referred By: DR GOMEZ Confirmed By:HUSSAIN KEY MD
[2021-07-22 06:37] LABS: Cholesterol 99 mg/dL (200); High Density Lipoprotein 42 mg/dL; Triglycerides 68 mg/dL; Very Low Density Lipoprotein 14 mg/dL (5-40)
[2021-07-22 07:06] LABS: Bedside Glucose 126 mg/dL (70-110)
[2021-07-22] MEDS: Aspirin E.C. 81 MG Tablet PO (08:24)
[2021-07-22] MEDS: Lisinopril 2.5 MG Tablet PO (08:24)
[2021-07-22] MEDS: Clopidogrel Bisulfate 75 MG Tablet PO (08:24)
[2021-07-22] MEDS: amLODIPine 5 MG Tablet PO (08:24)
[2021-07-22] MEDS: Atorvastatin Calcium 80 MG Tablet PO (08:24)
[2021-07-22] MEDS: Gabapentin 800 MG Tablet PO (08:24)
[2021-07-22] MEDS: Carvedilol 3.125 MG TABLET PO ×2 (08:24→22:00)
--- NOTE | 2021-07-22 13:32 | PCM.PN.CARD ---
Subjective Subjective Patient seen and evaluated at bedside today This morning had symptoms of chest pain Also had numbness/right facial with some numbness and weakness in the right upper and lower extremity. Objective Data Vital Signs: Vital Signs Temp Pulse Resp BP Pulse Ox 97.6 F L 63 16 106/66 99 07/22/21 08:19 07/22/21 08:19 07/22/21 08:19 07/22/21 08:19 07/22/21 08:19 Oxygen Delivery Method Room Air Weight: 175 lb 4.28 oz Body Mass Index (BMI) 25.9 Intake & Output: Intake and Output for Last 24 Hours 07/20/21 07/21/21 07/22/21 23:59 23:59 23:59 Intake Total 1400 / 1400 240 / 240 Balance 1400 / 1400 240 / 240 Lab / Micro Data Result Diagrams: 07/20/21 15:10 07/20/21 15:10 Labs: Laboratory Results - last 24 hr 07/21/21 16:41: POC Glucose 146 H 07/21/21 17:51: Troponin I High Sens 6 07/21/21 21:09: POC Glucose 170 H 07/22/21 05:10: Triglycerides 68, Cholesterol 99, LDL Cholesterol 43, VLDL Cholesterol 14, HDL Cholesterol 42 07/22/21 06:33: POC Glucose 126 H Cardiology Labs/Tests 07/22/21 05:10: Triglycerides 68, Cholesterol 99, LDL Cholesterol 43, VLDL Cholesterol 14, HDL Cholesterol 42 Rhythm: Normal sinus rhythm : Radiography Diagnostic Testing: Radiology Impression Brain CT 07/21/21 16:41 IMPRESSION: No acute findings in the head/brain. Electronically Signed: Julian Casanova MD (Brooks) at 17:03 EST , Service support , ADDENDUM: 07/21/21 5622 IMPRESSION: No acute findings in the head/brain. N.B. : The above Results were Read Back by Julian Casanova MD (Brooks) to Dr Ellen MD, and understanding confirmed on 07/21/2021 17:30:25 (ET). Electronically Signed: Julian Casanova MD (Brooks) at 17:03 EST , Service support , Head/Neck CTA 07/21/21 17:13 IMPRESSION: No large vessel occlusion or intracranial aneurysm. Moderate left ICA stenosis. No carotid dissection. N.B. : The above Results were Read Back by Julian Casanova MD (Brooks) to Dr Ellen MD, and understanding confirmed on 07/21/2021 17:37:02 (ET). Electronically Signed: Julian Casanova MD (Brooks) at 17:38 EST , Service support , ADDENDUM: 07/21/21 1745 IMPRESSION: No large vessel occlusion or intracranial aneurysm. Moderate left ICA stenosis. No carotid dissection. N.B. : The above Results were Read Back by Julian Casanova MD (Brooks) to Dr Ellen MD, and understanding confirmed on 07/21/2021 17:37:02 (ET). Electronically Signed: Julian Casanova MD (Brooks) at 17:38 EST , Service support , Brain MRI 07/21/21 17:39 IMPRESSION: 1. Normal brain. 2. No acute or focal disease. Electronically Signed: Kaiser Stuart MD at 20:04 EST Tel , Service support , Physical Exam Narrative Bedside examination Patient alert orientated sitting out in a chair comfortable He does not have active chest pain at time of evaluation Cardiovascular exam S1-S2 regular, no murmur no systolic or diastolic murmur Chest exam clear to auscultation bilateral, examination of the lower extremity no clubbing no cyanosis no lower extremity edema, Examination of central nervous system no focal neurological deficit noted. Assessment & Plan Assessment/Plan (1) Atherosclerotic heart disease of [place] coronary artery without angina pectoris: QUALIFIERS: [place] vs. transplanted heart: [place] heart Qualified Code(s): I25.10 - Atherosclerotic heart disease of [place] coronary artery without angina pectoris (2) History of coronary artery stent placement: (3) Bilateral carotid artery stenosis: (4) Coronary artery disease with exertional angina: PLAN: Patient 66-year-old who presented with symptoms of chest pain Has a multiple risk factor history of hypertension hyperlipidemia history of carotid arthrosclerosis Evidently within the medical floor yesterday stroke alert was called. Telemetry consult by neurologist had a CT head and MRI, no significant change noted Patient has carotid arthrosclerosis and high risk for stroke Cardiovascular recommendation and plan; 1. We will continue medical therapy with maximizing antianginal medication. High sensitive troponins were normal 2. Has multiple coronary artery stent to LAD, circumflex and RCA we will evaluate with Lexiscan sestamibi Based on nuclear stress result we can discuss further plan. We will discuss the plan with his primary plant operations worker Dr. Nickerson
--- NOTE | 2021-07-22 13:39 | TELEMED_ITS ---
[facility] Telemed has confirmed receipt of a request for visit. This document confirms receipt of the order initiating the consult. To find the results of the consultation, please view the patient's reports for the scanned Telemed Consult.
--- NOTE | 2021-07-22 13:41 | PN.HOSP_ITS ---
Subjective Subjective Right sided numbness better. Developed chest pain when moving his feet in bed today. Still with headache, has had chronic headaches for 30 years. Objective Data Objective Data Vital Signs: Vital Signs Temp Pulse Resp BP Pulse Ox 36.4 C L 63 16 106/66 99 07/22/21 08:19 07/22/21 08:19 07/22/21 08:19 07/22/21 08:19 07/22/21 08:19 Oxygen Delivery Method Room Air Weight: 79.5 kg Body Mass Index (BMI) 25.9 Intake & Output: Intake and Output for Last 24 Hours 07/20/21 07/21/21 07/22/21 23:59 23:59 23:59 Intake Total 1400 / 1400 240 / 240 Balance 1400 / 1400 240 / 240 Lab / Micro Data Result Diagrams: 07/20/21 15:10 07/20/21 15:10 Labs: Laboratory Results - last 24 hr 07/21/21 16:41: POC Glucose 146 H 07/21/21 17:51: Troponin I High Sens 6 07/21/21 21:09: POC Glucose 170 H 07/22/21 05:10: Triglycerides 68, Cholesterol 99, LDL Cholesterol 43, VLDL Cholesterol 14, HDL Cholesterol 42 07/22/21 06:33: POC Glucose 126 H Radiography Diagnostic Testing: Radiology Impression Brain CT 07/21/21 16:41 IMPRESSION: No acute findings in the head/brain. Electronically Signed: Julian Casanova MD (Brooks) at 17:03 EST , Service support , ADDENDUM: 07/21/21 4537 IMPRESSION: No acute findings in the head/brain. N.B. : The above Results were Read Back by Julian Casanova MD (Brooks) to Dr Ellen MD, and understanding confirmed on 07/21/2021 17:30:25 (ET). Electronically Signed: Julian Casanova MD (Brooks) at 17:03 EST , Service support , Head/Neck CTA 07/21/21 17:13 IMPRESSION: No large vessel occlusion or intracranial aneurysm. Moderate left ICA stenosis. No carotid dissection. N.B. : The above Results were Read Back by Julian Casanova MD (Brooks) to Dr Ellen MD, and understanding confirmed on 07/21/2021 17:37:02 (ET). Electronically Signed: Julian Casanova MD (Brooks) at 17:38 EST , Service support , ADDENDUM: 07/21/21 1745 IMPRESSION: No large vessel occlusion or intracranial aneurysm. Moderate left ICA stenosis. No carotid dissection. N.B. : The above Results were Read Back by Julian Casanova MD (Brooks) to Dr Ellen MD, and understanding confirmed on 07/21/2021 17:37:02 (ET). Electronically Signed: Julian Casanova MD (Brooks) at 17:38 EST , Service support , Brain MRI 07/21/21 17:39 IMPRESSION: 1. Normal brain. 2. No acute or focal disease. Electronically Signed: Kaiser Stuart MD at 20:04 EST Tel , Service support , Physical Exam Const alert Resp normal respiratory effort, no retractions, no use of accessory muscles and clear to auscultation bilaterally Cardio regular rate, regular rhythm, S1 normal heart sound and S2 normal heart sound GI normal to inspection, nondistended, normoactive bowel sounds, soft to palpation, non-tender and non-distended Extremity normal to inspection Neuro Neuro Narrative: sensation intact throughout. Sensorium / Orientation: awake and alert Motor Exam: strength 5/5 throughout Psych affect normal Assessment & Plan Assessment/Plan (1) Chest pain: QUALIFIERS: Chest pain type: chest pain due to myocardial ischemia Ischemic chest pain type: stable angina pectoris Qualified Code(s): I20.8 - Other forms of angina pectoris PLAN: 1. stable angina work up thus far negative continue his CAD medications cycle troponin recheck EKG consult cardiology stress test 07/23 2. Right facial and right arm numbness stroke team called 07/21 stroke work up negative pt with chronic headaches for 30+ years. could be migraine variant consult [facility] neurology for recommendations. 3. CAD stable continue ASA, clopidogrel, HIS, lisinopril 4. DM2 hold metformin in case he needs a [facility] SSI 5. Code status: he's unsure. I told him I will leave him as full code, unless he tells us otherwise. Charges/Coding Visit Charges OBSV E&M: 99076 Subsequent observation care L2
[2021-07-22 16:15] LABS: Bedside Glucose 155 mg/dL (70-110)
[2021-07-22 21:50] LABS: Bedside Glucose 166 mg/dL (70-110)
[2021-07-23] VITALS (20 sets, daily range): BP systolic 104–145; BP diastolic 61–86; PULSE 59–82; RESP 12–20; TEMP 36.1–36.8; O2SAT 92–100
[2021-07-23] MEDS: 0.9% Saline Lock 10 ML Syringe IV ×2 (02:46→12:22)
--- NOTE | 2021-07-23 05:55 | EKG12_ITS ---
Test Reason : CP ADMIT Blood Pressure : / mmHG Vent. Rate : 060 BPM Atrial Rate : 060 BPM P-R Int : 130 ms QRS Dur : 090 ms QT Int : 412 ms P-R-T Axes : 034 018 001 degrees QTc Int : 412 ms Normal sinus rhythm Normal ECG When compared with ECG of 20-JUL-2021 15:43, MANUAL COMPARISON REQUIRED, DATA IS UNCONFIRMED Confirmed by SHAHID POTTER, HUSSAIN ([id number]), editor sound CODY YOON ([id number]) on 07/24/2021 1:55:56 PM Referred By: DR GOMEZ Confirmed By:HUSSAIN KEY MD
[2021-07-23] MEDS: Clopidogrel Bisulfate 75 MG Tablet PO (06:28)
[2021-07-23] MEDS: Aspirin E.C. 81 MG Tablet PO (06:28)
[2021-07-23 06:56] LABS: Bedside Glucose 152 mg/dL (70-110)
--- NOTE | 2021-07-23 09:00 | CASEMGMT ---
SW did not complete a PHQ 9 as per chart patient did not have a Stroke. Julisa TOSCANO
[2021-07-23] MEDS: Nitroglycerin (INPATIENT USE) 0.4 MG TAB.SUBL SL ×2 (11:10→11:15)
--- NOTE | 2021-07-23 11:12 | STRESSREP ---
Stress Test Report Oncologic myocardial perfusion stress test. 66-year-old male with a history of chest pain previous stenting. Stress protocol: Resting EKG demonstrates normal sinus rhythm with rate of 70 bpm normal intervals are noted resting blood pressure is 130/82 mmHg. 0.4 mg of regadenoson was infused per usual protocol followed by rapid intravenous saline flush injection continuous EKG monitoring was performed. At rest there were nonspecific ST-T wave changes were noted with did not meet the criteria for abnormal flow reserve and at peak infusion nonspecific ST changes were noted with did not meet the criteria for abnormal flow reserve. The maximum heart rate attained was 88 bpm which was 57% of max impact at heart rate the maximum workload was one metabolic equivalent. At rest there were no ST or T wave changes noted to suggest ischemia. Myocardial perfusion protocol. 11.4 mCi of technetium 99m sestamibi was injected at rest. 0.4 mg of regadenoson was infused per usual protocol. At peak infusion 32.5 mCi of technetium 99m sestamibi was injected stress images were obtained stress and rest images were reconstructed and compared in the short axis vertical long horizontal long axis. Gated images were also obtained Perfusion SPECT analysis: Review of the stress images demonstrate normal uptake of tracer noted in all areas of the myocardium. The resting images similarly demonstrate normal uptake of tracer noted in all areas of the myocardium. No areas of reversibility are noted to suggest ischemia and no previous infarct is noted. Gated SPECT analysis: The gated ejection fraction is 69%. Conclusion: Normal pharmacologic myocardial perfusion stress test. Preserved ejection fraction.
--- NOTE | 2021-07-23 11:32 | EKG12_ITS ---
Test Reason : PCI Blood Pressure : / mmHG Vent. Rate : 069 BPM Atrial Rate : 069 BPM P-R Int : 130 ms QRS Dur : 090 ms QT Int : 408 ms P-R-T Axes : 041 039 005 degrees QTc Int : 437 ms Normal sinus rhythm Normal ECG When compared with ECG of 23-JUL-2021 10:59, MANUAL COMPARISON REQUIRED, DATA IS UNCONFIRMED Confirmed by SHAHID POTTER, HUSSAIN ([id number]), material expeditor CODY YOON ([id number]) on 07/25/2021 7:43:40 AM Referred By: SHAHID Confirmed By:HUSSAIN KEY MD
--- NOTE | 2021-07-23 11:49 | CASEMGMT ---
According to [facility], the following are in-network tertiary facilities: [facility], [place], [facility], [facility], [facility], [facility], and . Zeb MODI CM
--- NOTE | 2021-07-23 12:03 | CASEMGMT ---
This RN MARQUISE to room with BREWER form, explanation done-pt voices understanding, and signs BREWER form. Original to chart and copy to pt. Pt voices no further questions/concerns/needs. SStaten RIAN CM
[2021-07-23 12:15] LABS: Bedside Glucose 188 mg/dL (70-110)
[2021-07-23] MEDS: amLODIPine 5 MG Tablet PO (12:20)
[2021-07-23] MEDS: Carvedilol 3.125 MG TABLET PO ×2 (12:20→20:41)
[2021-07-23] MEDS: Lisinopril 2.5 MG Tablet PO (12:20)
--- NOTE | 2021-07-23 12:22 | NURSING ---
Report called to pathology laboratory aides teacher RIAN De Jesus.
--- NOTE | 2021-07-23 13:21 | PN.CARD_ITS ---
Subjective Subjective Patient seen and evaluated. Appears to be having on and off chest pain. Objective Data Vital Signs: Vital Signs Temp Pulse Resp BP Pulse Ox 97 F L 76 20 H 125/82 H 92 07/23/21 12:19 07/23/21 12:19 07/23/21 12:19 07/23/21 12:19 07/23/21 12:19 Oxygen Flow Rate (L/min) 2 Oxygen Delivery Method Room Air Weight: 175 lb 4.28 oz Body Mass Index (BMI) 25.9 Intake & Output: Intake and Output for Last 24 Hours 07/21/21 07/22/21 07/23/21 23:59 23:59 23:59 Intake Total 1400 / 1400 240 / 480 290 / 290 Balance 1400 / 1400 240 / 480 290 / 290 Lab / Micro Data Result Diagrams: 07/20/21 15:10 07/20/21 15:10 Labs: Laboratory Results - last 24 hr 07/22/21 16:12: POC Glucose 155 H 07/22/21 20:27: POC Glucose 166 H 07/23/21 06:44: POC Glucose 152 H 07/23/21 11:22: POC Glucose 188 H Cardiology Labs/Tests Rhythm: EKG: ECHO: Stress Test: Cardiac Cath: PCI: CT Surgery: Holter monitor: EPS: PPM: CXR: Chest CT Scan: Radiography Diagnostic Testing: Radiology Impression Echocardiogram 07/21/21 17:40 Interpretation Summary Normal size and thickness. Left ventricular systolic function is normal. Stage 1 diastolic dysfunction. Mild focal aortic valve calcification. Ordering Physician: Jered Hughes Referring Physician: BO GRADY Performed By: Charly Vang RCS Brain MRI 07/23/21 19:00 IMPRESSION: Minimal parenchymal volume loss likely age-related. There is minimal white matter high FLAIR and T2 signal which is nonspecific but likely represents chronic microvascular ischemic change. Mild nonspecific symmetric high T2 signal seen at the globus pallidus which is nonspecific but likely represents chronic microvascular ischemic change. This is stable. There is no abnormal blood products or restricted diffusion. There is nonspecific coarse calcifications noted. Electronically Signed: Rey Valadez MD at 11:55 EST Tel , Service support , Physical Exam Const alert, oriented x3 and no apparent distress General Appearance: cooperative HEENT hearing grossly normal bilaterally Head and Scalp: atraumatic Eyes EOMs intact bilaterally Neck General: normal visual inspection Chest inspection of chest normal and palpation of chest normal Resp normal respiratory effort Auscultation: clear to auscultation bilaterally Cardio regular rate, regular rhythm, S1 normal heart sound and S2 normal heart sound Jugular Venous Distention: JVD GI normal to inspection, nondistended, normoactive bowel sounds Extremity normal capillary refill and no pedal edema Peripheral Pulses: Yes pulses 2+ throughout and femoral pulses present Skin no rashes or lesions noted Neuro oriented x3 and CN's II-XII intact bilaterally Psych Appearance: grossly normal and appropriate Assessment & Plan Assessment/Plan (1) Coronary artery disease with exertional angina: PLAN: He does present with chest discomfort and some angina. He underwent stress testing this morning which did not demonstrate any overt ischemia. However he continued to have chest discomfort and so it was decided to bring him to the cardiac catheterization lab. It demonstrated the following: Normal left main coronary artery. Left anterior descending artery previously stented in the proximal and mid portions with no significant stenosis. Ramus intermedius previously stented and patent. Left circumflex artery proximal previously stented with 95% in-stent stenosis. Dominant large right coronary artery with diffuse disease no more than 50%. Preserved left ventricular systolic function. Based on the above angiographic findings would consider PCI to the in-stent stenosis noted above. (2) History of coronary artery stent placement: PLAN: He does have a history of coronary disease stenting as noted above. He has evidence of in-stent stenosis and this would be rePCI (3) Essential (primary) hypertension: PLAN: He does have a history of hypertension and will continue with the current medical therapy. (4) Hyperlipidemia: QUALIFIERS: Hyperlipidemia type: unspecified Qualified Code(s): E78.5 - Hyperlipidemia, unspecified PLAN: He does have a history of hyperlipidemia and will continue with aggressive risk factor modification. Thank you for allowing me to participate in the care of your patient. Please don't hesitate to call if any issues arise.
--- NOTE | 2021-07-23 14:06 | PN.HOSP_ITS ---
Documented by User: Ramez DENISE 07/23/21 14:27 Subjective Subjective Patient is a 66-year-old male resting in bed, alert and oriented x3. While going down for MRI and stress test patient began to develop chest pain, tremors and began to come diaphoretic. This was a change to patient's prior status whe re he was asymptomatic. Did appear in acute distress at that time. Objective Data Objective Data Vital Signs: Vital Signs Temp Pulse Resp BP Pulse Ox 97 F L 76 20 H 125/82 H 92 07/23/21 12:19 07/23/21 12:19 07/23/21 12:19 07/23/21 12:19 07/23/21 12:19 Oxygen Flow Rate (L/min) 2 Oxygen Delivery Method Room Air Weight: 175 lb 4.28 oz Body Mass Index (BMI) 25.9 Intake & Output: Intake and Output for Last 24 Hours 07/21/21 07/22/21 07/23/21 23:59 23:59 23:59 Intake Total 1400 / 1400 240 / 480 290 / 290 Balance 1400 / 1400 240 / 480 290 / 290 Lab / Micro Data Result Diagrams: 07/20/21 15:10 07/20/21 15:10 Labs: Laboratory Results - last 24 hr 07/22/21 16:12: POC Glucose 155 H 07/22/21 20:27: POC Glucose 166 H 07/23/21 06:44: POC Glucose 152 H 07/23/21 11:22: POC Glucose 188 H Radiography Diagnostic Testing: Radiology Impression Echocardiogram 07/21/21 17:40 Interpretation Summary Normal size and thickness. Left ventricular systolic function is normal. Stage 1 diastolic dysfunction. Mild focal aortic valve calcification. Ordering Physician: Jered Hughes Referring Physician: BO GRADY Performed By: Charly Vang RCS Brain MRI 07/23/21 19:00 IMPRESSION: Minimal parenchymal volume loss likely age-related. There is minimal white matter high FLAIR and T2 signal which is nonspecific but likely represents chronic microvascular ischemic change. Mild nonspecific symmetric high T2 signal seen at the globus pallidus which is nonspecific but likely represents chronic microvascular ischemic change. This is stable. There is no abnormal blood products or restricted diffusion. There is nonspecific coarse calcifications noted. Electronically Signed: Rey Valadez MD at 11:55 EST Tel , Service support , Physical Exam Const alert and oriented x3 HEENT head/scalp atraumatic and moist oral mucous membranes Head and Scalp: normocephalic Eyes PERRL, EOMs intact bilaterally and conjunctivae normal Neck no lymphadenopathy, supple and no JVD Resp normal respiratory effort, no retractions and no use of accessory muscles Cardio regular rate, regular rhythm, no murmurs and no JVD GI normal to inspection, nondistended, normoactive bowel sounds, soft to palpation and non-tender Extremity normal to inspection, full ROM and no clubbing, cyanosis or edema Skin Skin Narrative: Patient was diaphoretic in the face. Neuro CN's II-XII intact bilaterally Psych affect normal Assessment & Plan Assessment/Plan (1) Chest pain: QUALIFIERS: Chest pain type: chest pain due to myocardial ischemia Ischemic chest pain type: stable angina pectoris Qualified Code(s): I20.8 - Other forms of angina pectoris PLAN: Day 3 Discharge planning: To be determined 1) Coronary artery disease with exertional angina Patient was admitted on 07/20 for stable angina. While obtaining MRI and stress test on 07/23 patient began to develop chest pain, tremors and become diaphoretic. Rapid response team was called and EKG was immediately obtained. There was some T wave inversions in the lateral leads which was different from the EKG obtained on admission. Stress test at the time of event did not demonstrate any evidence of ischemia. Cardiology was consulted and it was decided that patient should have a left heart catheterization. Catheterization was significant for left circumflex artery proximal previously stented with 95% in-stent stenosis and large right coronary artery with diffuse disease estimated at 50%. Left circumflex was stented and patient is recovering in room currently. Will remain admitted overnight for monitoring and continue aspirin, Plavix, high intensity statin and lisinopril. Cardiology following. 2) strokelike symptoms Repeat brain MRI was negative for any evidence of acute ischemia or infarction. Specific details as noted above. Continue with aspirin 81 mg p.o. daily and Plavix 75 mg p.o. daily. Continue high-dose statin at 80 mg p.o. daily. 3) DM2 Continue to hold Metformin, Accu-Cheks with sliding scale insulin ordered. DVT prophylaxis - SCD's Patient seen by Ramez Son PA-C, under the supervision of Dr. Perez. Documented by User: Dr. Geno Perez DO 07/23/21 16:39 Subjective Subjective This patient was seen in conjunction with CAMELIA Amezcua. The following is representation my is independent history and physical examination. Please see below for addendum the above Rapid response called today why patient was in the MRI scanner for his brain MRI secondary to chest pain. The patient reports that he had low-level chest pain while he was having a stress test but it worsened while he was in the scanner. EKG was performed and slight EKG changes with ST depression in the extreme lateral/inferior leads noted and the patient was taken to the Project Management Advisor where a circumflex lesion was found and stented. I reevaluated the patient this afternoon and his symptoms have since resolved. Objective Data Lab / Micro Data Result Diagrams: 07/20/21 15:10 07/20/21 15:10 Physical Exam Const alert, oriented x3, no apparent distress, average body habitus and healthy appearing Constitutional Narrative: Older white male lying in bed on initial eval with shaking secondary to chest pain but upon reevaluate this afternoon after his stent was placed the patient is sitting up in bed and appears comfortable with nursing at the bedside Exam Limitations: no limitations HEENT head/scalp atraumatic and moist oral mucous membranes HEENT Narrative: No thrush, Mallampati 2 Head and Scalp: normocephalic Resp normal respiratory effort, no retractions, no use of accessory muscles and clear to auscultation bilaterally Auscultation: Negative for crackles, rales, rhonchi or wheezes Cardio regular rate, regular rhythm, S1 normal heart sound, S2 normal heart sound, no murmurs, no rub, no gallops, no clicks and no JVD GI normal to inspection, nondistended, normoactive bowel sounds, soft to palpation, non-tender and non-distended Extremity no clubbing, cyanosis or edema Extremity Narrative: Right radial compression device in place status post left heart cath Peripheral Pulses: Yes pulses 2+ throughout Skin no rashes or lesions noted, no wounds, skin turgor normal, no jaundice, no petechiae and no mottling Neuro oriented x3, CN's II-XII intact bilaterally, moves all extremities and no focal motor deficits Sensorium / Orientation: awake and alert Speech: speech normal Psych Mood & Affect: anxious Assessment & Plan Assessment/Plan (1) Unstable angina: (2) Coronary artery disease with exertional angina: PLAN: Assessment: Unstable angina CAD with exertional angina Right-sided facial numbness, droop, right arm numbness-resolved DM-2 uncontrolled Hypertension Hyperlipidemia Diabetic neuropathy Mild chronic normocytic anemia Plan: -PCI with RODDY to circumflex today -Continue home goal-directed therapy -Continue Plavix and aspirin -Hemoglobin A1c was 7.5 and therefore slightly uncontrolled will allow management per outpatient PCP as patient is currently on oral patient with metformin 1000 mg twice daily--> if diet changes are unable to decrease his A1c some then he may need further oral therapy -MRI is negative for stroke and symptoms are resolved--> question related to anxiety -Probable discharge tomorrow if patient remains stable Charges/Coding Visit Charges Inpatient E&M: 04747 Subs Hosp L2
--- NOTE | 2021-07-23 14:09 | PCI.CARDCATH ---
PCI Cardiac Cath Report PCI Report: Procedure performed; 1. Successful PCI of proximal left circumflex in-stent restenosis of 90% % with predilatation, followed by placement of drug-eluting stent 2.5 x 9 NC Emerge MR balloon 2.5 x 9 mm MR drug-eluting stent/RODDY/Orsiro Followed by postdilatation using 3 x 8 mm emerge NC balloon. With reduction of stenosis from 80% to 0%. Pre-PCI SHARRI III, post PCI maintain SHARRI-3. 2. Placement of TR band to close the right radial artery arteriotomy site. Consent; Risk and benefits of the procedure explained in detail to the patient elected to proceed informed consent obtained. Preprocedure diagnosis; 66-year-old patient who presented with symptoms of typical angina retrosternal chest discomfort on exertion which is relieved with rest and with use of nitroglycerin Patient had a history of diabetes mellitus, hypertension, hyperlipidemia and carotid atherosclerosis During this admission patient had stroke alert and was seen by the teleneurology consult where CTA and MRI of the brain were normal he had nonobstructive carotid artery disease. The echocardiographic evaluation LV function is preserved and further assessment by nuclear stress test showed no significant ischemia. However patient continued to have symptoms of chest pain and underwent cardiac catheterization as he has a multiple coronary artery stents including LAD left circumflex and RCA The proximal left circumflex stent was in May 2020 using drug-eluting stent Synergy 2.25 x 8 mm. I reviewed the cardiac catheterization finding/angiography with the primary 3rd mate Dr. Nickerson. RCA and LAD stents are patent and left main have no obstructive atherosclerosis. Patient had in-stent stenosis of the proximal left circumflex with typical angina symptoms, echocardiographic evaluation LV function is preserved. Interventional equipment and plan; 1. 6 Israeli 3.5 XB 100 cm guide catheter. 2. 0.014 BMW universal straight 190 cm 3. 0.014 run-through extra floppy 180 cm straight guidewire 4. 2.5 x 9 mm drug-eluting stent/Orsiro 5. 3 x 8 mm NC Emerge balloon Medication in the Products Mechanical Design Engineer; Patient was given IV heparin 6000 ACT level was 248 he was given an additional 2000 units of heparin 2. Was given 300 mg of Plavix patient was being on Plavix at home. Procedure in detail; Under fluoroscopic guidance we will proceed with the 6 Israeli XB guide cannulated the left coronary ostium without difficulty Following this angiographic view obtained in the, anders and SUAREZ caudal views, will proceed with the guidewire across the lesion with a run-through Tentative followed by balloon dilatation using 2.5 x 8 mm NC balloon, followed by placement of drug-eluting stent 2.5 x 9 mm and followed by postdilatation using 3 x 8 mm NC balloon and achieved an excellent result With reduction of stenosis from 90% to 0% Pre-PCI SHARRI 0 flow, maintained post PCI SHARRI-3 flow with no complication in the Products Mechanical Design Engineer TR band applied to right radial artery area. Conclusion successful PCI of proximal left circumflex artery in-stent restenosis as described Recommendation; 1. Patient to continue on DAPT with aspirin/Plavix for 1 year 2. Patient will follow up with the primary 3rd mate Dr. Nickerson with medical therapy 3. Patient is scheduled for phase 1 cardiac rehab program Fatimah Morton MD,[facility]
--- NOTE | 2021-07-23 14:10 | CASEMGMT ---
RN MARQUISE Face to Face with patient for initial transition planning/care coordination assessment. RN CM introduced self and role at [facility]. Patient lying in bed, alert and oriented, son at bedside. Patient willing to participate in assessment and is able to answer all questions appropriately. Care providers, pharmacy, and demographics verified. Patient wishes to discharge home, denies need for home health at this time. Patient states he has no further needs or concerns at this time. CM to follow for discharge planning needs that may arise. PCP: Rm Specialists: Liya certified coder Preferred Pharmacy: [place], [facility] retail at discharge. Insurance: [employer] Prescription Benefit: yes Living Will/HPOA: none LNOK: son Living Arrangements: Patient lives with son in a 2 story home. Patient states he is independent and able to ambulate stairs. Transportation: self/sister DME/HHC: Patient denies DME or previous HHC. Disposition Plan: Patient to discharge home with family support and follow-up plans in place. Kathleen COMBS, RN, CM
--- NOTE | 2021-07-23 14:15 | EKG12_ITS ---
Test Reason : CP Blood Pressure : / mmHG Vent. Rate : 084 BPM Atrial Rate : 084 BPM P-R Int : 112 ms QRS Dur : 088 ms QT Int : 378 ms P-R-T Axes : 069 056 -04 degrees QTc Int : 446 ms Normal sinus rhythm ST & T wave abnormality, consider inferior ischemia Abnormal ECG Confirmed by SHAHID POTTER, HUSSAIN ([id number]), video effects editor CODY YOON ([id number]) on 07/27/2021 11:54:25 AM Referred By: JACQUE Confirmed By:HUSSAIN KEY MD
--- NOTE | 2021-07-23 14:34 | CRPHASE1 ---
Patient Communication Former Patient:: Phase I PHII Cardiac Rehab Discussed with Patient:: Yes Guide to Cardiac Rehab Given to Patient:: Yes Cardiac Rehab Facility Choice List Given to Patient:: Yes Choice Program [facility] CR PHII:: Communication Given to CR Choice Program Other:: Communication Given to CR Roof Truss Builder:: Fatimah Morton Phase II Cardiac Rehab:: Yes Sessions:: 36 sessions - 3 days/wk, 12 weeks Cardiac Rehabilitation Info Cardiac Rehabilitation Program Information: Cardiac Rehabilitation is important for patients like you who are recovering from a heart problem. Cardiac rehabilitation programs are recognized as integral to the continued care of the patient with coronary heart disease. The cardiac rehabilitation program is designed to optimize a patient's physical, psychological, and social functioning. Health primary care md work in cardiac rehabilitation programs and assist you with getting the treatments you need to get stronger and healthier - like exercise, healthy eating habits, and medications. Cardiac rehabilitation has been show to help people with heart problems live longer and have better life enjoyment than people who do not go to cardiac rehabilitation. Please contact the Cardiac Rehabilitation Program at [facility] at in two weeks if you have not heard from them.
--- NOTE | 2021-07-23 14:34 | CRPH1.INSTRU ---
General Education CAD and cardiac anatomy and function:: Patient communicates acknowledgment Explanation of diagnoses and procedures:: Patient communicates acknowledgment Antiplatelet therapy: Patient communicates acknowledgment Smoking Patient Nicotine/Smoking Risk Factors Are:: Non-smoker Recommendations Include:: Previous smoker; encourage continued cessation Nicotine/Smoking Response Code:: Patient communicates acknowledgment Dyslipidemia Patient Dyslipidemia Risk Factors Are:: Total Cholesterol, Triglycerides, HDL, LDL Recommendations Include:: Lipid profile provided, Therapeutic Lifestyle Change dietary guidelines Dyslipidemia Response Code:: Patient communicates acknowledgment Overweight/Obesity Patient Overweight/Obesity Risk Factors Are:: BMI Normal [24-29 & > 65 years old] Recommendations Include:: Weight loss of 5-10%, Reduced calorie diet, Exercise 5-7 times/week Overweight/Obesity:: Patient communicates acknowledgment Hypertension Recommendations Include:: BP <130/80 if diabetic, DASH dietary guidelines, Decrease/maintain normal body weight, Moderation of ETOH Hypertension:: Patient communicates acknowledgment Heart Disease Patient Heart Disease Risk Factors Are:: Previous cardiac event Recommendations Include:: Educated family members of their risk Heart Disease Response Code:: Patient communicates acknowledgment Diabetes Patient Diabetes Risk Factors Are:: Elevated blood sugars Recommendations Include:: Maintain fasting blood sugars 70-110 md/dL, Maintain HgbA1c of 6% or less, Monitor blood sugar as prescribed, Diabetic dietary guidelines, Decrease/maintain body weight Diabetes:: Patient communicates acknowledgment Sedentary Patient Sedentary Risk Factors Are:: Lack of regular exercise Recommendations Include:: Aerobic exercise 5-7 times/week for 20-30 minutes continuously, Benefits of regular exercise, Discussed home walking program, Monitored Outpatient Cardiac Rehab Sedentary Response Code:: Patient communicates acknowledgment Stress Recommendations Include:: Identification of stressors, and assessment of coping skills, Stress management techniques Stress Response Code:: Patient communicates acknowledgment
[2021-07-23] MEDS: 0.9% Normal Saline 1,000 ML 150 ML IV (14:50)
[2021-07-23] MEDS: Atorvastatin Calcium 80 MG Tablet PO (14:53)
[2021-07-23] MEDS: Gabapentin 800 MG Tablet PO (14:53)
[2021-07-23] MEDS: Glucerna Shake 120 ML LIQUID PO ×2 (14:55→16:56)
--- NOTE | 2021-07-23 15:14 | NURSING ---
This RN reviewed SN charting
[2021-07-23 17:30] LABS: Bedside Glucose 122 mg/dL (70-110)
--- NOTE | 2021-07-23 19:00 | MRI_ITS ---
STUDY: MRI BRAIN WITHOUT CONTRAST REASON FOR EXAM: Male, 66 years old. right facial numbness -- SOC neurology recommends another MRI since first one was negative. TECHNIQUE: Standardized multiplanar fat and water weighted pulse sequences were obtained. COMPARISON: July 2021 FINDINGS: There is no abnormal intra-axial or extra-axial fluid collections, mass, or hematoma. The ventricles and subarachnoid spaces are upper limits. There are a few tiny high FLAIR and T2 signal lesions in the white matter which are nonspecific but likely represents chronic microvascular ischemic change. There is high T2 signal seen at the globus pallidus bilaterally which is symmetric and similar to prior exam. There is some low T2 signal associated felt to relate to nonspecific basal ganglia calcifications. MRI/Brain without Contrast IMPRESSION: Minimal parenchymal volume loss likely age-related. There is minimal white matter high FLAIR and T2 signal which is nonspecific but likely represents chronic microvascular ischemic change. Mild nonspecific symmetric high T2 signal seen at the globus pallidus which is nonspecific but likely represents chronic microvascular ischemic change. This is stable. There is no abnormal blood products or restricted diffusion. There is nonspecific coarse calcifications noted. Electronically Signed: Rey Valadez MD at 11:55 EST Tel , Service support ,
[2021-07-23 20:51] LABS: Bedside Glucose 164 mg/dL (70-110)
[2021-07-24 02:40] VITALS: BP 113/64; PULSE 67; RESP 16; TEMP 36.4; O2SAT 98
[2021-07-24 03:00] VITALS: PULSE 64
[2021-07-24 06:13] LABS: Hematocrit 37.6 % (40-54); Hemoglobin 12.3 g/dL (13.0-16.5); Mean Corp Hgb Conc 32.7 g/dL (32-36); Mean Corpuscular Hgb 28.9 pg (27.0-32.0); Mean Corpuscular Volume 88.5 fL (80-94); Mean Platelet Vol. 9.8 fl (6.2-12.0); Platelet Count 215 K/mm3 (150-450); RBC Distribution Width CV 13.4 % (11.6-14.6); RBC Distribution Width SD 43.6 fl (35.1-43.9); Red Blood Count 4.25 M/mm3 (4.6-6.2)
[2021-07-24] MEDS: Insulin Lispro 100 UNIT/ML INSULN.PEN SC ×2 (06:29→12:17)
[2021-07-24 06:31] VITALS: BP 126/62; PULSE 63; RESP 12; TEMP 36.4; O2SAT 99
[2021-07-24 06:50] LABS: Bedside Glucose 150 mg/dL (70-110)
[2021-07-24 06:58] LABS: ALB/GLOB Ratio 0.9 RATIO (0.9-2.4); AST(SGOT) 17 U/L (15-37); Alanine Aminotransfer ALT/SGPT 25 U/L (16-61); Albumin, Serum 3.5 g/dL (3.2-5.0); Alkaline Phosphatase 112 U/L (45-117); Anion Gap 7 (5-15); BUN 17 mg/dL (7-18); BUN/Creat Ratio 22.2 RATIO (10-20); Calcium,Total 8.7 mg/dL (8.5-10.1); Chloride 104 mmol/L (98-107); Creatinine, Serum 0.77 mg/dL (0.70-1.30); EST Glomerular Filtration Rate 107 mL/min (>60); Est Glom Filt Rate - Afr Amer 130 mL/min (>60); Globulin 3.9 g/dL (2.2-4.2); Glucose 138 mg/dL (74-106); Protein, Total 7.4 g/dL (6.4-8.2); Sodium Level 137 mmol/L (136-145)
[2021-07-24 07:00] VITALS: PULSE 72
[2021-07-24 07:18] VITALS: O2SAT 95
--- NOTE | 2021-07-24 08:37 | PN.CARD_ITS ---
Subjective Subjective Patient seen any dilated. Appears to be doing better this morning. Objective Data Vital Signs: Vital Signs Temp Pulse Resp BP Pulse Ox 97.6 F L 72 12 126/62 H 95 07/24/21 06:31 07/24/21 07:00 07/24/21 06:31 07/24/21 06:31 07/24/21 07:18 Oxygen Flow Rate (L/min) 2 Oxygen Delivery Method Room Air Weight: 175 lb 4.28 oz Body Mass Index (BMI) 25.9 Intake & Output: Intake and Output for Last 24 Hours 07/22/21 07/23/21 07/24/21 23:59 23:59 23:59 Intake Total 240 / 480 770 / 770 1600 / 1600 Output Total 750 / 1400 650 / 650 Balance 240 / 480 20 / -630 950 / 950 Lab / Micro Data Result Diagrams: 07/24/21 04:52 07/24/21 04:52 Labs: Laboratory Results - last 24 hr 07/23/21 11:22: POC Glucose 188 H 07/23/21 16:56: POC Glucose 122 H 07/23/21 20:40: POC Glucose 164 H 07/24/21 04:52: WBC 6.0, RBC 4.25 L, Hgb 12.3 L, Hct 37.6 L, MCV 88.5, MCH 28.9, MCHC 32.7, RDW Std Deviation 43.6, RDW Coeff of Megan 13.4, Plt Count 215, MPV 9.8 07/24/21 04:52: Sodium 137, Potassium 4.0, Chloride 104, Carbon Dioxide 26.0, Anion Gap 7, BUN 17, Creatinine 0.77, Estim Creat Clear Calc 70.70, Est GFR (MDRD) Af Amer 130, Est GFR (MDRD) Non-Af 107, BUN/Creatinine Ratio 22.2 H, Glucose 138 H, Calcium 8.7, Total Bilirubin 0.40, AST 17, ALT 25, Alkaline Phosphatase 112, Total Protein 7.4, Albumin 3.5, Globulin 3.9, Albumin/Globulin Ratio 0.9 07/24/21 06:25: POC Glucose 150 H Cardiology Labs/Tests 07/24/21 04:52: WBC 6.0, RBC 4.25 L, Hgb 12.3 L, Hct 37.6 L, MCV 88.5, MCH 28.9, MCHC 32.7, Plt Count 215, MPV 9.8 07/24/21 04:52: Sodium 137, Potassium 4.0, Chloride 104, Carbon Dioxide 26.0, Anion Gap 7, BUN 17, Creatinine 0.77, Est GFR (MDRD) Af Amer 130, Est GFR (MDRD) Non-Af 107, BUN/Creatinine Ratio 22.2 H, Glucose 138 H, Calcium 8.7, Total Bilirubin 0.40 Rhythm: EKG: ECHO: Stress Test: Cardiac Cath: PCI: CT Surgery: Holter monitor: EPS: PPM: CXR: Chest CT Scan: Radiography Diagnostic Testing: Radiology Impression Echocardiogram 07/21/21 17:40 Interpretation Summary Normal size and thickness. Left ventricular systolic function is normal. Stage 1 diastolic dysfunction. Mild focal aortic valve calcification. Ordering Physician: Jered Hughes Referring Physician: BO GRADY Performed By: Charly Vang RCS Brain MRI 07/23/21 19:00 IMPRESSION: Minimal parenchymal volume loss likely age-related. There is minimal white matter high FLAIR and T2 signal which is nonspecific but likely represents chronic microvascular ischemic change. Mild nonspecific symmetric high T2 signal seen at the globus pallidus which is nonspecific but likely represents chronic microvascular ischemic change. This is stable. There is no abnormal blood products or restricted diffusion. There is nonspecific coarse calcifications noted. Electronically Signed: Rey Valadez MD at 11:55 EST Tel , Service support , Assessment & Plan Assessment/Plan (1) Coronary artery disease with exertional angina: PLAN: He does present with chest discomfort and some angina. He underwent stress testing this morning which did not demonstrate any overt ischemia. However he continued to have chest discomfort and so it was decided to bring him to the cardiac catheterization lab. It demonstrated the following: Normal left main coronary artery. Left anterior descending artery previously stented in the proximal and mid portions with no significant stenosis. Ramus intermedius previously stented and patent. Left circumflex artery proximal previously stented with 95% in-stent stenosis. Dominant large right coronary artery with diffuse disease no more than 50%. Preserved left ventricular systolic function. Based on the above angiographic findings he underwent angioplasty and restenting of the left circumflex artery. This morning he is doing well and can be discharged on his home medications.. (2) History of coronary artery stent placement: PLAN: He does have a history of coronary disease stenting as noted above. (3) Essential (primary) hypertension: PLAN: He does have a history of hypertension and will continue with the current medical therapy. (4) Hyperlipidemia: QUALIFIERS: Hyperlipidemia type: unspecified Qualified Code(s): E78.5 - Hyperlipidemia, unspecified PLAN: He does have a history of hyperlipidemia and will continue with aggressive risk factor modification. Thank you for allowing me to participate in the care of your patient. Please don't hesitate to call if any issues arise.
[2021-07-24 09:12] VITALS: BP 124/66; PULSE 67; RESP 14; TEMP 36.8; O2SAT 98
[2021-07-24] MEDS: Glucerna Shake 120 ML LIQUID PO ×2 (09:17→12:22)
[2021-07-24] MEDS: Gabapentin 800 MG Tablet PO (09:17)
[2021-07-24] MEDS: Aspirin E.C. 81 MG Tablet PO (09:17)
[2021-07-24] MEDS: Atorvastatin Calcium 80 MG Tablet PO (09:17)
[2021-07-24] MEDS: Carvedilol 3.125 MG TABLET PO (09:17)
[2021-07-24] MEDS: amLODIPine 5 MG Tablet PO (09:18)
[2021-07-24] MEDS: Clopidogrel Bisulfate 75 MG Tablet PO (09:18)
[2021-07-24] MEDS: Lisinopril 2.5 MG Tablet PO (09:18)
--- NOTE | 2021-07-24 10:00 | EKG12_ITS ---
Test Reason : AM EKG Blood Pressure : / mmHG Vent. Rate : 058 BPM Atrial Rate : 058 BPM P-R Int : 130 ms QRS Dur : 094 ms QT Int : 420 ms P-R-T Axes : 050 056 031 degrees QTc Int : 412 ms Sinus bradycardia Otherwise normal ECG When compared with ECG of 23-JUL-2021 15:02, MANUAL COMPARISON REQUIRED, DATA IS UNCONFIRMED Confirmed by SHAHID POTTER, HUSSAIN ([id number]), film editor supervisor CODY YOON ([id number]) on 07/25/2021 7:42:54 AM Referred By: DR RIVERO Confirmed By:HUSSAIN KEY MD
--- NOTE | 2021-07-24 10:46 | PCM.DC ---
Discharge Instructions Diet Discharge Diet: No restrictions Activity Discharge Activity: Return to Normal Activity Weight Bearing Status: Weight bearing as tolerated Dressing / Incision Call your doctor if you observe: Fever of 101 or Higher, Numbness or Tingling, Shortness of breath, Dizziness, Chest pain, Increased palpitations (irregular heartbeat) and Calf discomfort Follow Up Care Please Follow Up With: Primary care provider When: Within the next two weeks. Test Results: Test results from this visit will be discussed in further detail at your follow-up appointment, if applicable. Discharge Plan Admission Admit Date/Time: 07/23/21 13:28 Primary Reason for Your Visit: Chest Pain Attending Provider: Geno Perez Primary Care Provider: Nadir Abdalla Consulting Providers: Sina Cabrales Discharge Orders/Prescriptions Prescriptions: Continued omega 8-mqa-ect-fish oil [Fish Oil] 1,000 mg (120 mg-180 mg) capsule 1,000 mg PO QDAY RF: 0 metformin 500 mg tablet extended release 24 hr 1,000 mg PO BID RF: 0 gabapentin 800 mg tablet 800 mg PO DAILY RF: 0 nitroglycerin 0.4 mg tablet, sublingual 0.4 mg SUBLINGUAL Q5M PRN (Reason: Chest Pain) Qty: 25 RF: 6 aspirin 81 MG tablet 81 mg PO DAILY@0800 RF: 0 atorvastatin 80 mg tablet 80 mg PO DAILY Qty: 90 RF: 3 lisinopril 2.5 mg tablet 2.5 mg PO DAILY Qty: 90 RF: 3 carvedilol [Coreg] 3.125 mg tablet 3.125 mg PO BID Qty: 180 RF: 3 amlodipine 5 mg tablet 5 mg PO DAILY Qty: 90 RF: 3 clopidogrel [Plavix] 75 mg tablet 75 mg PO DAILY Qty: 90 RF: 3 Referrals / Follow Up: Jd Nickerson MD [STAFF PHYSICIAN] - Within 2 Weeks Nadir Abdalla MD [Primary Care Provider] - Within 2 Weeks Disposition Disposition (needs filled in before D/C Order can be placed): Home, Self Care
--- NOTE | 2021-07-24 10:57 | PHA.DC.MR ---
Pharmacy Service has performed discharge medication reconciliation for this patient. The patient's discharge medication list was reviewed for discrepancies and discrepancies were resolved. Home Medications aspirin 81 mg PO DAILY@0800 09/13/13 omega 4-hgy-dcp-fish oil 1,000 mg (120 mg-180 mg) capsule 1,000 mg PO QDAY cap 01/06/18 metformin 500 mg tablet,extended release 24 hr 1,000 mg PO BID tab 07/25/20 atorvastatin 80 mg tablet 80 mg PO DAILY #90 tab 12/29/20 lisinopril 2.5 mg tablet 2.5 mg PO DAILY #90 tab 12/29/20 gabapentin 800 mg tablet 800 mg PO DAILY 01/01/21 nitroglycerin 0.4 mg sublingual tablet 0.4 mg SUBLINGUAL Q5M PRN #25 tab 01/01/21 carvedilol 3.125 mg tablet 3.125 mg PO BID #180 tab 01/03/21 amlodipine 5 mg tablet 5 mg PO DAILY #90 tab 03/21/21 clopidogrel 75 mg tablet 75 mg PO DAILY #90 tab 07/04/21
[2021-07-24 11:45] LABS: Bedside Glucose 250 mg/dL (70-110)
--- NOTE | 2021-07-24 13:29 | PCM.DC.SUM ---
Documented by User: Ramez DENISE 07/24/21 13:42 Providers Date of Admission: 07/23/21 Primary Care Physician: Dr. Nadir Abdalla MD Consultations 07/20/21 21:07 Consult: Cardiology Routine Consulting Provider: Sina Cabrales Reason for Consult: chest pain EMERGENT Consult: No MD Notified: Yes Date Notified: 07/20/21 Time Notified: 18:20 Method of Notification: Verbal Reason For Visit: chest pain Diagnosis Discharge Diagnosis (1) Coronary artery disease with exertional angina: Status: Acute Code(s): I25.118 - Atherosclerotic heart disease of [place] coronary artery with other forms of angina pectoris (2) History of coronary artery stent placement: Status: Chronic Code(s): Z95.5 - Presence of coronary angioplasty implant and graft (3) Essential (primary) hypertension: Status: Chronic Code(s): I10 - Essential (primary) hypertension (4) Hyperlipidemia: Status: Chronic Code(s): E78.5 - Hyperlipidemia, unspecified Qualifiers: Hyperlipidemia type: unspecified Qualified Code(s): E78.5 - Hyperlipidemia, unspecified Medications at Discharge Home Medications aspirin 81 mg PO DAILY@0800 09/13/13 omega 9-bqh-lsl-fish oil 1,000 mg (120 mg-180 mg) capsule 1,000 mg PO QDAY cap 01/06/18 metformin 500 mg tablet,extended release 24 hr 1,000 mg PO BID tab 07/25/20 atorvastatin 80 mg tablet 80 mg PO DAILY #90 tab 12/29/20 lisinopril 2.5 mg tablet 2.5 mg PO DAILY #90 tab 12/29/20 gabapentin 800 mg tablet 800 mg PO DAILY 01/01/21 nitroglycerin 0.4 mg sublingual tablet 0.4 mg SUBLINGUAL Q5M PRN #25 tab 01/01/21 carvedilol 3.125 mg tablet 3.125 mg PO BID #180 tab 01/03/21 amlodipine 5 mg tablet 5 mg PO DAILY #90 tab 03/21/21 clopidogrel 75 mg tablet 75 mg PO DAILY #90 tab 07/04/21 Hospital Course Procedures 2-D Echocardiogram, Cardiac catheterization and Transthoracic echo Summary of Care Provided Minutes Spent on Discharge: 35 Hospital Course: Patient is a 66-year-old male who was admitted to [facility] on 07/20/2021 with a chief complaint of chest pain. Patient's initial work-up was unremarkable as high-sensitivity troponins were not elevated. During stress test patient began to develop chest pain and became diaphoretic. A rapid response team was called and an EKG was immediately obtained. EKG demonstrated new T wave inversions in the lateral leads that was not present on admission. Cardiology was consulted and agreed that patient should be taken for immediate left heart catheterization. Catheterization results are as above. Due to stenosis in left LCA patient underwent angioplasty and restenting of the left circumflex artery. Cardiology followed patient throughout admission and would like to pursue medical management with outpatient follow-up. No home medications were added as patient is already maximized on risk factor modification therapy with aspirin, Plavix and statin. Patient is to follow-up with cardiology within the next 2 weeks. Echocardiogram also obtained and was unremarkable. Throughout admission patient also developed facial numbness, droop and right arm numbness. SOC consult was obtained and recommended that patient receive a brain MRI. MRI did not reveal any evidence of acute ischemia or infarction. All other home medications were continued and patient is to follow-up with primary care provider within the next 2 weeks. Patient seen by Ramez Son PA-C, under the supervision of Dr. Perez. Physical Exam Narrative Patient is a 66-year-old male comfortably resting in bed, alert and orient x3. Patient reports resolution of chest pain or shortness of breath for admission. Denies development of any new symptoms overnight. Does not appear in acute distress. Const alert, oriented x3 and no apparent distress HEENT normocephalic, head/scalp atraumatic and hearing grossly normal bilaterally Eyes PERRL, EOMs intact bilaterally and conjunctivae normal Neck no lymphadenopathy, supple and no JVD Resp normal respiratory effort, no retractions, no use of accessory muscles and clear to auscultation bilaterally Cardio regular rate, regular rhythm, no murmurs and no JVD GI normal to inspection, nondistended, normoactive bowel sounds, soft to palpation and non-tender Extremity normal to inspection, full ROM and no clubbing, cyanosis or edema Skin no rashes or lesions noted, no wounds and skin turgor normal Neuro CN's II-XII intact bilaterally Psych affect normal Weight / BMI Weight Weight: 175 lb 4.28 oz Body Mass Index (BMI) 25.9 ABG / Lab / Microbiology Data Result Diagrams: 07/24/21 04:52 07/24/21 04:52 Laboratory: Laboratory Results - last 24 hr 07/23/21 16:56: POC Glucose 122 H 07/23/21 20:40: POC Glucose 164 H 07/24/21 04:52: WBC 6.0, RBC 4.25 L, Hgb 12.3 L, Hct 37.6 L, MCV 88.5, MCH 28.9, MCHC 32.7, RDW Std Deviation 43.6, RDW Coeff of Megan 13.4, Plt Count 215, MPV 9.8 07/24/21 04:52: Sodium 137, Potassium 4.0, Chloride 104, Carbon Dioxide 26.0, Anion Gap 7, BUN 17, Creatinine 0.77, Estim Creat Clear Calc 70.70, Est GFR (MDRD) Af Amer 130, Est GFR (MDRD) Non-Af 107, BUN/Creatinine Ratio 22.2 H, Glucose 138 H, Calcium 8.7, Total Bilirubin 0.40, AST 17, ALT 25, Alkaline Phosphatase 112, Total Protein 7.4, Albumin 3.5, Globulin 3.9, Albumin/Globulin Ratio 0.9 07/24/21 06:25: POC Glucose 150 H 07/24/21 11:42: POC Glucose 250 H D/C Instructions Discharge Diet: No restrictions Weight Bearing Status: Weight bearing as tolerated Call your doctor if you observe: Fever of 101 or Higher, Numbness or Tingling, Shortness of breath, Dizziness, Chest pain, Increased palpitations (irregular heartbeat) and Calf discomfort Please Follow Up With: Primary care provider When: Within the next two weeks. Meaningful Use Info Meaningful Use Diagnoses (Choose all that apply): None applicable Discharge Plan Admission Admit Date/Time: 07/23/21 13:28 Primary Reason for Your Visit: Chest Pain Attending Provider: Geno Perez Primary Care Provider: Nadir Abdalla Consulting Providers: Sina Cabrales Discharge Orders/Prescriptions Prescriptions: Continued omega 3-dsq-gkd-fish oil [Fish Oil] 1,000 mg (120 mg-180 mg) capsule 1,000 mg PO QDAY RF: 0 metformin 500 mg tablet extended release 24 hr 1,000 mg PO BID RF: 0 gabapentin 800 mg tablet 800 mg PO DAILY RF: 0 nitroglycerin 0.4 mg tablet, sublingual 0.4 mg SUBLINGUAL Q5M PRN (Reason: Chest Pain) Qty: 25 RF: 6 aspirin 81 MG tablet 81 mg PO DAILY@0800 RF: 0 atorvastatin 80 mg tablet 80 mg PO DAILY Qty: 90 RF: 3 lisinopril 2.5 mg tablet 2.5 mg PO DAILY Qty: 90 RF: 3 carvedilol [Coreg] 3.125 mg tablet 3.125 mg PO BID Qty: 180 RF: 3 amlodipine 5 mg tablet 5 mg PO DAILY Qty: 90 RF: 3 clopidogrel [Plavix] 75 mg tablet 75 mg PO DAILY Qty: 90 RF: 3 Referrals / Follow Up: Jd Nickerson MD [STAFF PHYSICIAN] - 08/07/21 10:30 am Nadir Abdalla MD [Primary Care Provider] - Within 2 Weeks Disposition Disposition (needs filled in before D/C Order can be placed): Home, Self Care Documented by User: Dr. Geno Perez DO 07/24/21 15:35 Providers Date of Admission: 07/23/21 Reason For Visit: chest pain Medications at Discharge Home Medications aspirin 81 mg PO DAILY@0800 09/13/13 omega 2-vdx-gpy-fish oil 1,000 mg (120 mg-180 mg) capsule 1,000 mg PO QDAY cap 01/06/18 metformin 500 mg tablet,extended release 24 hr 1,000 mg PO BID tab 07/25/20 atorvastatin 80 mg tablet 80 mg PO DAILY #90 tab 12/29/20 lisinopril 2.5 mg tablet 2.5 mg PO DAILY #90 tab 12/29/20 gabapentin 800 mg tablet 800 mg PO DAILY 01/01/21 nitroglycerin 0.4 mg sublingual tablet 0.4 mg SUBLINGUAL Q5M PRN #25 tab 01/01/21 carvedilol 3.125 mg tablet 3.125 mg PO BID #180 tab 05/05/21 amlodipine 5 mg tablet 5 mg PO DAILY #90 tab 03/21/21 clopidogrel 75 mg tablet 75 mg PO DAILY #90 tab 07/04/21 Hospital Course Operations None Procedures 2-D Echocardiogram, Cardiac catheterization and Nuclear stress test Summary of Care Provided Minutes Spent on Discharge: 42 Hospital Course: This patient was seen in conjunction with CAMELIA Amezcua. The following is representation my independent history and physical examination. Please see below for an addendum the above. Mr. Boss is a 66-year-old white male who presented to the emergency department [facility] on 07/20/2021 with a chief complaint of chest pain. He reported that it was worse with exertion and felt similar to previous myocardial infarction that he had which required stent placement. The financial legal assistant was contacted to the emergency department and recommended admission. The patient received nitro paste in the emergency department and was pain-free when evaluated by the hospitalist for admission. He was seen by cardiology on 07/21/2021 and given that he had a recent cardiac catheterization approximately 6 months ago a stress test was recommended. Prior to cardiology evaluation the patient developed acute onset numbness and weakness on the right side with right facial droop for which a stroke team was called. The patient was evaluated by [facility] telestroke and recommended an MRI be performed. His last known well time was unknown and therefore he was determined to be outside the window no TPA was given. CTA of the head and neck was performed and unremarkable for any significant vessel occlusions. A follow-up MRI was performed on 07/23/2021 after his stress test was performed and found to be negative for any acute ischemic events. At the end of his MRI he developed severe chest pain for which a rapid response was called. His stress test had just been completed and he stated at that time he had mild discomfort during his stress test but it worsened while he was in the MRI scanner. A repeat EKG was performed and showed mild ST-T wave depression in the lateral leads. The case was discussed with scientist engineer who reviewed his stress test and read it to be normal but given EKG changes he was taken to the Medical Laboratory Technical Officer. During his left heart cath he was found to have in-stent restenosis with 90% occlusion of his proximal left circumflex which was dilated and a new RODDY was placed. He was already on adequate goal-directed therapy and is to continue his aspirin and Plavix for 1 year and will be scheduled to follow-up with his primary scientist engineer Dr. Nickerson after discharge. He was also started on cardiac rehab. No new medications were initiated prior to discharge. He was monitored overnight after his cardiac catheterization and no arrhythmias were noted and the patient was deemed stable for discharge on 07/24/2021. He was discharged home in stable condition. I did recommend he follow-up with his PCP to have his hemoglobin A1c reevaluated. During his hospitalization it was 7.5, being that he is slightly uncontrolled and on oral agents it is likely that he would respond to 1 more oral agent and be at goal. Discharge diagnoses: NSTEMI CAD Hypertension Hyperlipidemia DM-2 uncontrolled-hemoglobin A1c 7.5 Right-sided facial numbness/droop, right arm numbness-resolved Diabetic neuropathy Mild chronic normocytic anemia Physical Exam Const alert, oriented x3, no apparent distress, average body habitus and healthy appearing Constitutional Narrative: Upper middle-aged white male sitting up in a chair at the bedside, appears comfortable, nontoxic, nursing at bedside, watching television, anxious to go home General Appearance: cooperative, comfortable, well kempt and well developed Orientation / Consciousness: awake Exam Limitations: no limitations HEENT normocephalic, head/scalp atraumatic and moist oral mucous membranes HEENT Narrative: Mild [place], poor dentition, Mallampati 2 Eyes PERRL, EOMs intact bilaterally and conjunctivae normal Eyes Narrative: No scleral icterus Neck no lymphadenopathy, supple and no JVD Neck Narrative: Trachea midline, no thyroid enlargement Resp normal respiratory effort, no retractions, no use of accessory muscles and clear to auscultation bilaterally Auscultation: Negative for crackles, rales, rhonchi or wheezes Cardio regular rate, regular rhythm, S1 normal heart sound, S2 normal heart sound, no murmurs, no rub, no gallops, no clicks and no JVD GI normal to inspection, nondistended, normoactive bowel sounds, soft to palpation, non-tender and non-distended Extremity normal to inspection and no clubbing, cyanosis or edema Extremity Narrative: Right radial dressing in place status post left heart cath with mild tenderness and ecchymosis Skin no rashes or lesions noted, no wounds, skin turgor normal, no jaundice, no petechiae and no mottling Neuro oriented x3, moves all extremities and no focal motor deficits Neuro Narrative: sensation intact throughout. Sensorium / Orientation: awake and alert Speech: speech normal Psych affect normal ABG / Lab / Microbiology Data Result Diagrams: 07/24/21 04:52 07/24/21 04:52 Discharge Plan Admission Admit Date/Time: 07/23/21 13:28 Primary Reason for Your Visit: Chest Pain Attending Provider: Geno Perez Primary Care Provider: Nadir Abdalla Consulting Providers: Sina Cabrales Discharge Orders/Prescriptions Prescriptions: Continued omega 3-pkp-edx-fish oil [Fish Oil] 1,000 mg (120 mg-180 mg) capsule 1,000 mg PO QDAY RF: 0 metformin 500 mg tablet extended release 24 hr 1,000 mg PO BID RF: 0 gabapentin 800 mg tablet 800 mg PO DAILY RF: 0 nitroglycerin 0.4 mg tablet, sublingual 0.4 mg SUBLINGUAL Q5M PRN (Reason: Chest Pain) Qty: 25 RF: 6 aspirin 81 MG tablet 81 mg PO DAILY@0800 RF: 0 atorvastatin 80 mg tablet 80 mg PO DAILY Qty: 90 RF: 3 lisinopril 2.5 mg tablet 2.5 mg PO DAILY Qty: 90 RF: 3 carvedilol [Coreg] 3.125 mg tablet 3.125 mg PO BID Qty: 180 RF: 3 amlodipine 5 mg tablet 5 mg PO DAILY Qty: 90 RF: 3 clopidogrel [Plavix] 75 mg tablet 75 mg PO DAILY Qty: 90 RF: 3 Referrals / Follow Up: Jd Nickerson MD [STAFF PHYSICIAN] - 08/07/21 10:30 am Nadir Abdalla MD [Primary Care Provider] - Within 2 Weeks Disposition Disposition (needs filled in before D/C Order can be placed): Home, Self Care Charges/Coding Visit Charges Inpatient E&M: 97124 Disch Hosp
--- NOTE | 2021-07-30 08:14 | CL.D_ITS ---
Patient Name: PRESTON BATES Study Date: 07/23/2021 Performing: Jd Nickerson MD Ht: 69 inches 175 cm : 1955 Wt: 176.6 lbs 80 kg Age: 66 Gender: male BSA: 1.96 PROCEDURE(S) PERFORMED [id number] W OR WO PTCA, SINGLE CORONARY ARTERY CLINICAL PROFILE AND INDICATIONS Indications: ACS <= 24 hrs Heart Failure: None Stress/Imaging Stress/Image Study Performed: No CAD Presentations: Unstable angina. CONCLUSIONS Severe coronary artery disease with previous stenting of the left anterior descending artery which is patent, ramus intermedius which is patent, Previously placed stent in the left circumflex artery with high-grade 95% in-stent stenosis. Diffuse mild right coronary artery disease RECOMMENDATIONS Referred for immediate PCI DESCRIPTION OF PROCEDURE The patient arrived to the procedure lab. The risks and benefits of the procedure as well as a full d escription of our services here and current unavailability of surgical backup were fully explained to the patient and/or their significant other prior to the catheterization. The Timeout was completed, verifying the correct patient and procedure. The patient's procedural site was prepped and draped in the usual fashion. Local anesthetic was given subcutaneously to right radial region with Lidocaine 2% . Using a modified Seldinger technique, arterial access was obtained via the right radial artery, a 6 Fr sheath was inserted. Left Coronary Artery selective angiography was performed in multiple views u sing a 5 Fr. 4.0 [place] catheter. Right Coronary Artery selective angiography was then performed in mu ltiple views using a 5 Fr. 4.0 [place] catheter. Left Ventriculography was performed in SUAREZ projection using a 5 Fr. [place] catheter. LV to AO pullback pressures were then recorded.The arterial sheath was pulled and a TR Band was applied for hemostasis - 10CC AIR CORONARY ANGIOGRAPHY DOMINANCE: Right Dominant LEFT HEART ASSESSMENT Left Ventricular Ejection Fraction: by Echo 60 % Normal LV wall motion Normal Left Ventricular systolic function LEFT MAIN: Mild calcification, No significant disease noted LEFT ANTERIOR DESCENDING ARTERY: MID LAD: Previously placed stent is patent CIRCUMFLEX ARTERY: PROX CIRC: Previously placed stent has an instent 95 % restenosis OM 2: Proximal - 70 % Stenosis RAMUS: Previously placed stent is patent RIGHT CORONARY ARTERY: Large dominant vessel with diffuse stenosis of 30 to 40% with calcification COMPLICATIONS No Complications PROCEDURE MEDICATIONS Versed 1 mg IV Fentanyl 50 mcg IV Versed 1 mg IV Oxygen: 2 L/min via nasal cannula Heparin given IA 07/23/2021 13:06:17 Heparin 6000 unit(s) IV 07/23/2021 13:23:42 Heparin 2000 unit(s) IV 07/23/2021 13:52:26 Plavix 300 mg PO 07/23/2021 13:23:53 Verapamil 2.5mg, Ntg 100mcgs, 2000 units of Heparin given IA 07/23/2021 13:06:17 SUMMARY OF HEMODYNAMIC DATA Time AIR REST ECG 12:42:40 Art 142/67 (90) 12:56:50 AO 112/64 (82) SA 13:08:00 LV 110/0, 2 13:15:15 LV 112/0, 1 13:15:21 LV 120/2, 7 13:15:50 LV 118/2, 5 13:15:56 LVp 119/1, 5 13:16:03 AOp 124/64 (91) 13:16:08 Signed By Jd Nickerson MD On 07/30/2021 08:13:34 Jd Nickerson MD
== END 2021-07-24 13:22 | disposition home or self-care (01) | DRG 247 ==
LOC: ED 18:08 → PCU 21:20
PROVIDERS: Family Medicine; Internal Medicine Interventional Cardiology; Emergency Provider Emergency Medicine; PCP Family Medicine; Visit Provider Internal Medicine
DX: T82.855A Stenosis of coronary artery stent, initial encounter (principal); I25.110 Atherosclerotic heart disease of native coronary artery with unstable angina pectoris; E11.40 Type 2 diabetes mellitus with diabetic neuropathy, unspecified; I10 Essential (primary) hypertension; E78.5 Hyperlipidemia, unspecified; N40.0 Benign prostatic hyperplasia without lower urinary tract symptoms; I25.2 Old myocardial infarction; Y83.9 Surgical procedure, unspecified as the cause of abnormal reaction of the patient, or of later complication, without mention of misadventure at the time of the procedure; Y92.9 Unspecified place or not applicable; Z23 Encounter for immunization; R29.810 Facial weakness; R20.0 Anesthesia of skin; E66.9 Obesity, unspecified; Z79.84 Long term (current) use of oral hypoglycemic drugs; Z79.82 Long term (current) use of aspirin; Z79.899 Other long term (current) drug therapy; Z86.16 Personal history of COVID-19; Z95.5 Presence of coronary angioplasty implant and graft
CPT/HCPCS: 36415; 70450; 70496; 70498; 70551; 71045; 78452; 80048; 80053; 80061; 82962; 83735; 84484; 85025; 85027; 85379; 92928; 93005; 93017; 93306; 93458; 94762; 97161; 97165; 97802; 99152; 99153; 99285; A9500; C1874; G0008; J7030; Q9967; 90686; A4216; C1725; C1769; C1887; C1894; C9600; J2785

== ENCOUNTER → 2021-08-10 10:30 | Outpatient (CLI) | payer MEDICARE, SELFPAY ==
[2020-09-11 08:28] VITALS: BMI 29.2
== END ==
PROVIDERS: PCP Family Medicine; Referring Provider Physician Assistant Medical; Visit Provider Physician Assistant Medical
DX: S55.191A Other specified injury of radial artery at forearm level, right arm, initial encounter (principal); X58.XXXA Exposure to other specified factors, initial encounter; Y93.9 Activity, unspecified; Y92.9 Unspecified place or not applicable; Y99.9 Unspecified external cause status
CPT/HCPCS: 93931

== ENCOUNTER 2021-08-16 10:29 | Emergency (ER) | payer MEDICARE, SELFPAY ==
[2020-09-11 08:28] VITALS: BMI 29.2
[2021-08-16] VITALS (7 sets, daily range): BP systolic 115–149; BP diastolic 56–84; PULSE 57–73; RESP 14–17; TEMP 36.9; O2SAT 95–98; BMI 24.5
--- NOTE | 2021-08-16 10:51 | EKG12_ITS ---
Test Reason : CP Blood Pressure : / mmHG Vent. Rate : 067 BPM Atrial Rate : 067 BPM P-R Int : 122 ms QRS Dur : 080 ms QT Int : 380 ms P-R-T Axes : 027 020 005 degrees QTc Int : 401 ms Normal sinus rhythm Low voltage QRS Confirmed by DONTE POTTER, FLORES ([id number]), editorial director CODY YOON ([id number]) on 08/17/2021 10:47:48 AM Referred By: JASMINA Confirmed By:FLORES KENT MD
--- NOTE | 2021-08-16 10:51 | RAD_ITS ---
STUDY: X-RAY CHEST REASON FOR EXAM: Male, 66 years old. Chest pain TECHNIQUE: Single AP portable view of the chest. COMPARISON: Comparison is made with prior study in 07/20/2021. FINDINGS: EKG electrodes are seen. The lungs are clear and expanded. There is no demonstrated pleural abnormality. There is borderline cardiomegaly. Normal mediastinum and bonnie. Normal visualized pulmonary arteries. There is atherosclerotic calcification of the aortic arch with tortuosity. Normal visualized thoracic spine. Normal visualized ribs, clavicles, and shoulders. There is no demonstrated abnormality of the visualized soft tissue structures of the upper abdomen. RAD/Chest 1 View (Portable) IMPRESSION: Borderline cardiomegaly. No acute abnormality is seen. Electronically Signed: Robert Mandujano MD at 11:29 EST , Service support ,
--- NOTE | 2021-08-16 10:53 | EDS_ITS ---
HPI History of Present Illness Chief Complaint: Chest Pain Narrative Narrative: Patient with past medical history of hypertension, coronary artery disease, states he has had 5 stents placed in his heart, the most recent being approximately 5 weeks ago. He was hospitalized for [address] Jd Nickerson. He awoke with chest pain today that started at 7:00, approximately 4 hours ago. Is been constant. To the middle of his chest. No radiation to his jaw or arm. He denies any nausea or vomiting. No new shortness of breath, but he has remote Covid which has left him short of breath for a long period of time. He is recovered from COVID-19. He denies any leg swelling. No history of congestive heart failure. He takes an aspirin daily. He presents because of the constant chest pain. He states while this may be somewhat similar to when he needed stent placement, at those times his chest pain was much more severe. He states that his chest pressure/pain is mildly exacerbated with exertion. [facility] Medical History Arteriosclerotic heart disease (ASHD) Atherosclerotic heart disease of [place] coronary artery without angina pectoris Bilateral carotid artery stenosis Bilateral carotid artery stenosis BPH (benign prostatic hyperplasia) Coronary artery disease with exertional angina COVID-19 DDD (degenerative disc disease) Elevated LFTs Essential (primary) hypertension Hyperlipidemia Obesity Sciatica Syncope Type 2 diabetes mellitus Unstable angina Home Medications aspirin 81 mg PO DAILY@0800 09/13/13 [History Last Taken 04/26/21] omega 1-waa-xfo-fish oil 1,000 mg (120 mg-180 mg) capsule 1,000 mg PO QDAY cap 01/06/18 [History Last Taken Unknown] metformin 500 mg tablet,extended release 24 hr 1,000 mg PO BID tab 07/25/20 [History Last Taken 04/25/21] atorvastatin 80 mg tablet 80 mg PO DAILY #90 tab 12/29/20 [Rx Last Taken Unknown] lisinopril 2.5 mg tablet 2.5 mg PO DAILY #90 tab 12/29/20 [Rx Last Taken 04/26/21] gabapentin 800 mg tablet 800 mg PO DAILY 01/01/21 [History Last Taken Unknown] nitroglycerin 0.4 mg sublingual tablet 0.4 mg SUBLINGUAL Q5M PRN #25 tab 01/01/21 [Rx Last Taken Unknown] carvedilol 3.125 mg tablet 3.125 mg PO BID #180 tab 01/03/21 [Rx Last Taken 04/26/21] amlodipine 5 mg tablet 5 mg PO DAILY #90 tab 03/21/21 [Rx Last Taken 04/26/21] clopidogrel 75 mg tablet 75 mg PO DAILY #90 tab 07/04/21 [Rx Last Taken Unknown] empagliflozin 10 mg tablet 10 mg PO DAILY 08/07/21 [History Last Taken Unknown] Allergy/AdvReac Type Severity Reaction Status Date / Time perfumes Allergy unknown Uncoded 08/16/21 10:29 Family History Sister CAD (coronary artery disease) CVA (cerebral vascular accident) Diabetes Myocardial infarction Hx of CABG Mother Cancer Lung CA Surgical History History of cataract surgery History of coronary artery stent placement (07/23/21) History of hand surgery History of left heart catheterization (02/01/19) Hx of appendectomy Social History Smoking Status: Never smoker alcohol intake: never substance use type: does not use caffeine: Yes Type: coffee what type of physical activity do you participate in: none seatbelt use: always do you feel safe at home: Yes ROS ROS ED ROS Narrative Constitutional: No fever, no chills. HEENT: No sore throat. No neck pain. No loss of vision. No rhinorrhea. Cardiovascular: Midsternal chest pain. Mildly exacerbated with exertion. No palpitations. No pedal edema. Respiratory: No cough, no shortness of breath. Abdominal: No abdominal pain. No nausea. No vomiting. Genitourinary: No dysuria. No hematuria. Musculoskeletal: No myalgias. No arthralgias. Neurologic: No headaches. No dizziness. No lightheadedness. Skin: No rash. No change in color. Psychiatric: No depression. No anxiety. EXAM Physical Exam Narrative Exam Narrative: Afebrile. Vital signs noted. HEENT: Normocephalic. Atraumatic. PERRL, EOMI. Neck soft and supple. No point tenderness or step off. Cardiovascular: Regular rate and rhythm. No murmurs, rubs, or gallops appreciated. Respiratory: No tachypnea. Lungs clear to auscultation bilaterally. Gastrointestinal: Abdomen soft, nontender, with normoactive bowel sounds. No rebound or guarding. Neurological: Awake. Alert. Nonfocal, nonlateralizing. Skin: No rash. Normal color. No pallor. Musculoskeletal: No pedal edema. Full range of motion extremities. Const Vital Signs: 08/16/21 10:30 08/16/21 10:51 08/16/21 11:29 Temperature 98.4 F Temperature Source Oral Pulse Rate 68 73 Respiratory Rate 14 Blood Pressure 149/74 H 132/84 H Blood Pressure Mean 99 100 Pulse Ox 98 95 95 Oxygen Delivery Method Room Air Room Air Room Air 08/16/21 12:00 08/16/21 13:00 08/16/21 14:00 Temperature Temperature Source Pulse Rate 60 57 L 60 Respiratory Rate 17 Blood Pressure 115/71 119/68 122/56 H Blood Pressure Mean 85 85 78 Pulse Ox 95 97 96 Oxygen Delivery Method Room Air Room Air MDM MDM MDM Narrative Medical decision making narrative: Comprehensive work-up was pursued. EKG demonstrates normal sinus rhythm at 67 bpm without ectopy or acute ST changes. His CBC is grossly normal, normal white count of 5.3, hemoglobin 13.7. His electrolyte panel is grossly unremarkable except for a BUN of 24 with a creatinine of 0.83. Glucose appropriately elevated at 118 with a normal anion gap of 5. Initial high-sensitivity troponin is less than 3. BNP is normal at 20. His repeat troponin/2-hour troponin is also less than 3 for a delta troponin of 0. Chest x-ray is negative for acute process. Although the patient already had COVID-19, he wanted another swab performed because he was actually trying to get a test done today but told him that he had chest pain so he was sent to the emergency department. His rapid Covid is negative. At this point in time, I feel he can be discharged safely home with follow-up. I contacted Dr. Cabrales who is on-call for Dr. Nickerson. He agrees with discharge and outpatient follow-up.. Return instructions were reviewed. Disposition is discharged home in stable condition. Lab Data Labs: Laboratory Results - last 24 hr 08/16/21 08/16/21 08/16/21 10:40 10:40 10:40 WBC 5.3 RBC 4.71 Hgb 13.7 Hct 41.8 MCV 88.7 MCH 29.1 MCHC 32.8 RDW Std Deviation 41.5 RDW Coeff of Megan 12.7 Plt Count 221 MPV 10.1 Immature Gran % (Auto) 0.200 Neut % (Auto) 58.1 Lymph % (Auto) 26.2 [place] % (Auto) 9.2 Eos % (Auto) 5.2 H Baso % (Auto) 1.1 H Absolute Neuts (auto) 3.1 Absolute Lymphs (auto) 1.40 Nucleated RBC % 0 Sodium 138 Potassium 4.4 Chloride 105 Carbon Dioxide 28.0 Anion Gap 5 BUN 24 H Creatinine 0.83 Estim Creat Clear Calc 87.95 Est GFR (MDRD) Af Amer 119 Est GFR (MDRD) Non-Af 98 BUN/Creatinine Ratio 29.0 H Glucose 118 H Calcium 9.8 Magnesium 2.2 Troponin I High Sens < 3 L B-Natriuretic Peptide 20.9 08/16/21 13:00 WBC RBC Hgb Hct MCV MCH MCHC RDW Std Deviation RDW Coeff of Megan Plt Count MPV Immature Gran % (Auto) Neut % (Auto) Lymph % (Auto) [place] % (Auto) Eos % (Auto) Baso % (Auto) Absolute Neuts (auto) Absolute Lymphs (auto) Nucleated RBC % Sodium Potassium Chloride Carbon Dioxide Anion Gap BUN Creatinine Estim Creat Clear Calc Est GFR (MDRD) Af Amer Est GFR (MDRD) Non-Af BUN/Creatinine Ratio Glucose Calcium Magnesium Troponin I High Sens < 3 L B-Natriuretic Peptide Radiography Diagnostic Testing: Clinical Impression(s) from Imaging Studies Chest X-Ray 08/16/21 10:51 IMPRESSION: Borderline cardiomegaly. No acute abnormality is seen. Electronically Signed: Robert Mandujano MD at 11:29 EST , Service support , Discharge Plan Triage Chief Complaint: Chest Pain ED Provider: Lux Valdovinos Dx/Rx/DC Orders Clinical Impression: Chest pain, SOB (shortness of breath), COVID-19 vaccine regimen to maintain immunity started Instructions: ED Chest Pain, Uncertain Cause Prescriptions: No Action omega 9-uih-phx-fish oil [Fish Oil] 1,000 mg (120 mg-180 mg) capsule 1,000 mg PO QDAY RF: 0 metformin 500 mg tablet extended release 24 hr 1,000 mg PO BID RF: 0 gabapentin 800 mg tablet 800 mg PO DAILY RF: 0 nitroglycerin 0.4 mg tablet, sublingual 0.4 mg SUBLINGUAL Q5M PRN (Reason: Chest Pain) Qty: 25 RF: 6 Jardiance 10 mg tablet 10 mg PO DAILY RF: 0 aspirin 81 MG tablet 81 mg PO DAILY@0800 RF: 0 atorvastatin 80 mg tablet 80 mg PO DAILY Qty: 90 RF: 3 lisinopril 2.5 mg tablet 2.5 mg PO DAILY Qty: 90 RF: 3 carvedilol [Coreg] 3.125 mg tablet 3.125 mg PO BID Qty: 180 RF: 3 amlodipine 5 mg tablet 5 mg PO DAILY Qty: 90 RF: 3 clopidogrel [Plavix] 75 mg tablet 75 mg PO DAILY Qty: 90 RF: 3 Primary Care Provider: Nadir Abdalla Referrals: Jd Nickerson MD [STAFF PHYSICIAN] - 08/23/21 Nadir Abdalla MD [Primary Care Provider] - 08/23/21 Disposition Disposition: Home, Self Care
[2021-08-16 11:17] LABS: Absolute Neutrophil Count 3.1 X10^3/uL (2.0-7.7); Basophil# 0.06 X10^3/uL; Basophil% 1.1 % (0-1); Eosinophil# 0.28 X10^3/uL; Eosinophils% 5.2 % (0-5); Hematocrit 41.8 % (40-54); Hemoglobin 13.7 g/dL (13.0-16.5); Lymphocyte % 26.2 % (19-41); Mean Corp Hgb Conc 32.8 g/dL (32-36); Mean Corpuscular Hgb 29.1 pg (27.0-32.0); Mean Corpuscular Volume 88.7 fL (80-94); Mean Platelet Vol. 10.1 fl (6.2-12.0); Monocyte# 0.49 X10^3/uL; Monocyte% 9.2 % (0-10); NRBC Flagged by Analyzer 0 % (0-5); Neutrophil % 58.1 % (47-70); Platelet Count 221 K/mm3 (150-450); RBC Distribution Width CV 12.7 % (11.6-14.6); RBC Distribution Width SD 41.5 fl (35.1-43.9); Red Blood Count 4.71 M/mm3 (4.6-6.2); White Blood Count 5.3 K/mm3 (4.4-11.0)
[2021-08-16] MEDS: Aspirin 81 MG TAB.CHEW 324 MG PO (11:18)
[2021-08-16] MEDS: Acetaminophen 325 MG Tablet 650 MG PO (11:18)
[2021-08-16 11:29] LABS: Anion Gap 5 (5-15); BUN 24 mg/dL (7-18); Calcium,Total 9.8 mg/dL (8.5-10.1); Chloride 105 mmol/L (98-107); Creatinine, Serum 0.83 mg/dL (0.70-1.30); EST Glomerular Filtration Rate 98 mL/min (>60); Est Glom Filt Rate - Afr Amer 119 mL/min (>60); Estimated Creatinine Clearance 87.95 ml/min; Glucose 118 mg/dL (74-106); Magnesium 2.2 mg/dL (1.6-2.6); Potassium 4.4 mmol/L (3.5-5.1); Sodium Level 138 mmol/L (136-145); Troponin-I HS < 3 pg/mL (3.0-78.0)
[2021-08-16 11:38] LABS: BNP,B-Type NATRIURETIC PEPTIDE 20.9 pg/mL (0-100)
[2021-08-16 13:33] LABS: Troponin-I HS < 3 pg/mL (3.0-78.0)
[2021-08-16] MEDS: COVID-19 VACC, MRNA(PFIZER)/PF 30 MCG/0.3 ML SYRINGE IM (15:45)
== END 2021-08-16 15:53 | disposition home or self-care (01) ==
PROVIDERS: Emergency Provider Emergency Medicine; PCP Family Medicine
DX: R07.9 Chest pain, unspecified (principal); Z20.822 Contact with and (suspected) exposure to COVID-19; R06.02 Shortness of breath; Z23 Encounter for immunization; I25.110 Atherosclerotic heart disease of native coronary artery with unstable angina pectoris; E11.9 Type 2 diabetes mellitus without complications; I10 Essential (primary) hypertension; E78.5 Hyperlipidemia, unspecified; N40.0 Benign prostatic hyperplasia without lower urinary tract symptoms; E66.9 Obesity, unspecified; Z79.84 Long term (current) use of oral hypoglycemic drugs; Z79.02 Long term (current) use of antithrombotics/antiplatelets; Z79.82 Long term (current) use of aspirin; Z79.899 Other long term (current) drug therapy; Z86.16 Personal history of COVID-19; Z95.5 Presence of coronary angioplasty implant and graft
CPT/HCPCS: 71045; 80048; 83735; 83880; 84484; 85025; 87426; 91300; 93005; 99283; A4216

== ENCOUNTER 2021-10-16 11:02 | Emergency (ER) | payer MEDICARE, SELFPAY ==
[2020-09-11 08:28] VITALS: BMI 29.2
[2021-10-16 11:03] VITALS: BP 117/75; PULSE 87; RESP 18; TEMP 36.5; O2SAT 98; BMI 24.5
--- NOTE | 2021-10-16 11:20 | EKG12_ITS ---
Test Reason : SYNCOPE Blood Pressure : / mmHG Vent. Rate : 075 BPM Atrial Rate : 075 BPM P-R Int : 142 ms QRS Dur : 088 ms QT Int : 360 ms P-R-T Axes : 034 022 015 degrees QTc Int : 402 ms Normal sinus rhythm Normal ECG When compared with ECG of 16-AUG-2021 10:36, No significant change was found Confirmed by CHANG POTTER, MERI ([id number]), fashion editor CODY YOON ([id number]) on 10/18/2021 1:41:29 PM Referred By: Yolanda Dean Confirmed By:KARI DOWNING MD
--- NOTE | 2021-10-16 11:22 | CT_ITS ---
STUDY: CT CERVICAL SPINE WITHOUT CONTRAST REASON FOR EXAM: Male, 66 years old. Injury/Pain RADIATION DOSAGE (If Supplied By Facility): CTDIvol = ( 19.34 ) mGy, DLP = ( 418.93 ) mGycm TECHNIQUE: High resolution transaxial imaging was performed without contrast material. Sagittal and coronal images were reconstructed. Individualized dose optimization techniques were used for this CT. COMPARISON: 03/04/2020 FINDINGS: Normal craniovertebral junction. Normal anterior atlantoaxial articulation. Normal odontoid process. There is straightening of the normal cervical lordosis. Normal vertebral bodies and posterior osseous elements. C2-3: Normal endplates. Normal disc height and morphology. Normal central canal and intervertebral neuroforamina. C3-4: Normal endplates. Normal disc height and morphology. Normal central canal and intervertebral neuroforamina. C4-5: Normal endplates. Normal disc height and morphology. Normal central canal and intervertebral neuroforamina. C5-6: Normal endplates. Normal disc height and morphology. Normal central canal and intervertebral neuroforamina. C6-7: Normal endplates. Normal disc height and morphology. Normal central canal and intervertebral neuroforamina. C7-T1: Normal endplates. Normal disc height and morphology. Normal central canal and intervertebral neuroforamina. Normal visualized soft tissue structures. CT/Spine Cervical without Contras IMPRESSION: Normal unenhanced CT examination of the cervical spine. Electronically Signed: Brian Ramos MD at 12:12 EST ,
--- NOTE | 2021-10-16 11:23 | EDS_ITS ---
HPI History of Present Illness Chief Complaint: Head Injury Informant: patient Onset/Context/Timing Onset: Days Context: Sudden Onset Timing: Intermittent Quality: Dizziness, lightheadedness Location: Generalized Worsened by: Nothing Relieved by: Nothing Narrative Narrative: Patient presents with 2 syncopal episodes. Patient states he had one 3 days ago. Patient states that he had a second 1 today. Patient states he felt dizzy and lightheaded prior to the syncopal episode. Patient states he also felt like his heart was racing prior to his syncopal episodes. Patient does not know how long he was out for. Patient states he just remembers waking up on the floor. Patient admits to an occipital headache and neck pain. Patient states nothing makes the pain better nothing makes it worse. Patient denies any paresthesias or weakness. [facility] Medical History Arteriosclerotic heart disease (ASHD) Atherosclerotic heart disease of [place] coronary artery without angina pectoris Bilateral carotid artery stenosis Bilateral carotid artery stenosis BPH (benign prostatic hyperplasia) Coronary artery disease with exertional angina COVID-19 DDD (degenerative disc disease) Elevated LFTs Essential (primary) hypertension Hyperlipidemia Obesity Sciatica Syncope Type 2 diabetes mellitus Unstable angina Home Medications aspirin 81 mg PO DAILY@0800 09/13/13 [History Last Taken 04/26/21] omega 6-yos-etn-fish oil 1,000 mg (120 mg-180 mg) capsule 1,000 mg PO QDAY cap 01/06/18 [History Last Taken Unknown] metformin 500 mg tablet,extended release 24 hr 1,000 mg PO BID tab 07/25/20 [History Last Taken 04/25/21] atorvastatin 80 mg tablet 80 mg PO DAILY #90 tab 12/29/20 [Rx Last Taken Unknown] lisinopril 2.5 mg tablet 2.5 mg PO DAILY #90 tab 12/29/20 [Rx Last Taken 04/26/21] gabapentin 800 mg tablet 800 mg PO BID 01/01/21 [History Last Taken Unknown] nitroglycerin 0.4 mg sublingual tablet 0.4 mg SUBLINGUAL Q5M PRN #25 tab 01/01/21 [Rx Last Taken Unknown] carvedilol 3.125 mg tablet 3.125 mg PO BID #180 tab 01/03/21 [Rx Last Taken 04/26/21] amlodipine 5 mg tablet 5 mg PO DAILY #90 tab 03/21/21 [Rx Last Taken 04/26/21] clopidogrel 75 mg tablet 75 mg PO DAILY #90 tab 07/04/21 [Rx Last Taken Unknown] amitriptyline 150 mg PO QHS 10/16/21 [History Last Taken Unknown] Allergy/AdvReac Type Severity Reaction Status Date / Time perfumes Allergy unknown Uncoded 10/16/21 11:06 Family History Sister CAD (coronary artery disease) CVA (cerebral vascular accident) Diabetes Myocardial infarction Hx of CABG Mother Cancer Lung CA Surgical History History of cataract surgery History of coronary artery stent placement (07/23/21) History of hand surgery History of left heart catheterization (02/01/19) Hx of appendectomy Social History Smoking Status: Never smoker alcohol intake: never substance use type: does not use caffeine: Yes Type: coffee what type of physical activity do you participate in: none seatbelt use: always do you feel safe at home: Yes ROS ROS ED Constitutional Constitutional ED: Denies chills or fever(s) Eyes Eyes: Denies blurry vision or change in vision ENT ENT ED: Denies rhinorrhea or sore throat Cardiovascular Cardiovascular: Reports palpitations and racing heartbeat; Denies chest pain Respiratory/Chest Respiratory/Chest: Denies cough or dyspnea Gastrointestinal Gastrointestinal: Denies nausea or vomiting Genitourinary Genitourinary ED: Denies dysuria or hematuria Musculoskeletal Musculoskeletal: Reports neck pain; Denies back pain Integumentary Denies abscess or rash Neurologic Neurologic: Reports headache(s); Denies weakness Allergic/Immunologic Allergic/Immunologic ED: Denies mouth swelling or urticaria EXAM Physical Exam Const Vital Signs: 10/16/21 11:03 10/16/21 11:46 Temperature 97.7 F L Temperature Source Temporal Pulse Rate 87 Respiratory Rate 18 Respiratory Effort Normal Respiratory Depth Normal Respiratory Pattern Normal Blood Pressure 117/75 Blood Pressure Mean 89 Pulse Ox 98 Oxygen Delivery Method Room Air Positive well nourished and well developed General Appearance ED: well developed HEENT Reports moist mucous membranes Neck supple and no JVD Resp normal respiratory effort and clear to auscultation bilaterally Cardio regular rate, regular rhythm and no murmurs GI normal to inspection, nondistended, normoactive bowel sounds and non-tender Palpation: soft Extremity normal to inspection General Extremety ED: Negative for edema or tenderness General Extremity: Negative for edema Neuro oriented x3, CN's II-XII intact bilaterally and no sensory deficits noted Sensorium / Orientation: alert Motor Exam: strength 5/5 throughout Psych mental status grossly normal Skin no rashes or lesions noted MDM MDM MDM Narrative Medical decision making narrative: EKG was obtained. On my interpretation, it showed a normal sinus rhythm with a rate of 75. RI interval, QRS interval, and QTc intervals were all normal. [place] was normal. There are no acute ST or T wave changes. CT scan of the brain was obtained. There is no acute intracranial abnormality. This was interpreted by the radiologist and reviewed by myself. CT scan of the cervical spine was obtained. There is no acute fracture or spondylolisthesis. There is no soft tissue swelling. This was interpreted by the radiologist and reviewed by myself. CBC was within normal limits. Comprehensive metabolic profile was within normal limits. PT was INR and PTT were normal. High-sensitivity troponin was normal. Patient is feeling better on reevaluation. Patient was instructed to drink plenty of fluids. Patient was instructed to follow-up with his primary care physician in 5 to 7 days. Patient understood and was agreeable with the plan. All questions were answered. Lab Data Attestation: I reviewed the patient's lab results. Labs: Laboratory Results - last 24 hr 10/16/21 10/16/21 10/16/21 11:36 11:36 11:36 WBC 5.4 RBC 4.11 L Hgb 12.2 L Hct 35.9 L MCV 87.3 MCH 29.7 MCHC 34.0 RDW Std Deviation 40.0 RDW Coeff of Megan 12.5 Plt Count 182 MPV 9.1 Immature Gran % (Auto) 0.400 Neut % (Auto) 63.2 Lymph % (Auto) 22.9 [place] % (Auto) 8.7 Eos % (Auto) 4.1 Baso % (Auto) 0.7 Absolute Neuts (auto) 3.4 Absolute Lymphs (auto) 1.24 Nucleated RBC % 0 PT 12.9 INR 1.0 APTT 29.5 Sodium 137 Potassium 4.4 Chloride 105 Carbon Dioxide 28.0 Anion Gap 4 L BUN 31 H Creatinine 0.82 Estim Creat Clear Calc 89.02 Est GFR (MDRD) Af Amer 120 Est GFR (MDRD) Non-Af 99 BUN/Creatinine Ratio 37.7 H Glucose 136 H Calcium 8.9 Total Bilirubin 0.30 AST 17 ALT 30 Alkaline Phosphatase 140 H Troponin I High Sens 5 Total Protein 7.7 Albumin 3.8 Globulin 3.9 Albumin/Globulin Ratio 1.0 Radiography Diagnostic Testing: Clinical Impression(s) from Imaging Studies Cervical Spine CT 10/16/21 11:22 IMPRESSION: Normal unenhanced CT examination of the cervical spine. Electronically Signed: Brian Ramos MD at 12:12 EST Reading Location ID and State: [id number] / [employer] Tel , Service support , Brain CT 10/16/21 11:52 IMPRESSION: Normal unenhanced CT scan of the brain. Electronically Signed: Brian Ramos MD at 12:09 EST , EKG Initial EKG: Attestation: I personally reviewed and interpreted this EKG as follows: Interpretation: Sinus Rhythm (75) and No Acute Injury Pattern Discharge Plan Triage Chief Complaint: Head Injury ED Provider: Jered Huff Dx/Rx/DC Orders Clinical Impression: Syncope and collapse Instructions: ED Fainting, Uncertain Cause Prescriptions: No Action omega 6-mtp-vgo-fish oil [Fish Oil] 1,000 mg (120 mg-180 mg) capsule 1,000 mg PO QDAY RF: 0 metformin 500 mg tablet extended release 24 hr 1,000 mg PO BID RF: 0 gabapentin 800 mg tablet 800 mg PO BID RF: 0 nitroglycerin 0.4 mg tablet, sublingual 0.4 mg SUBLINGUAL Q5M PRN (Reason: Chest Pain) Qty: 25 RF: 6 aspirin 81 MG tablet 81 mg PO DAILY@0800 RF: 0 amitriptyline 150 mg tablet 150 mg PO QHS RF: 0 atorvastatin 80 mg tablet 80 mg PO DAILY Qty: 90 RF: 3 lisinopril 2.5 mg tablet 2.5 mg PO DAILY Qty: 90 RF: 3 carvedilol [Coreg] 3.125 mg tablet 3.125 mg PO BID Qty: 180 RF: 3 amlodipine 5 mg tablet 5 mg PO DAILY Qty: 90 RF: 3 clopidogrel [Plavix] 75 mg tablet 75 mg PO DAILY Qty: 90 RF: 3 Primary Care Provider: Nadir Abdalla Referrals: Nadir Abdalla MD [Primary Care Provider] - 3-5 Days Disposition Disposition: Home, Self Care
[2021-10-16 11:44] LABS: Absolute Lymphocyte Count 1.24 X10^3/uL (0.83-4.51); Absolute Neutrophil Count 3.4 X10^3/uL (2.0-7.7); Basophil# 0.04 X10^3/uL; Basophil% 0.7 % (0-1); Eosinophil# 0.22 X10^3/uL; Eosinophils% 4.1 % (0-5); Hematocrit 35.9 % (40-54); Hemoglobin 12.2 g/dL (13.0-16.5); Lymphocyte # 1.24 X10^3/ul (0.83-4.51); Lymphocyte % 22.9 % (19-41); Mean Corpuscular Hgb 29.7 pg (27.0-32.0); Mean Corpuscular Volume 87.3 fL (80-94); Mean Platelet Vol. 9.1 fl (6.2-12.0); Monocyte# 0.47 X10^3/uL; Monocyte% 8.7 % (0-10); NRBC Flagged by Analyzer 0 % (0-5); Neutrophil # 3.42 X10^3/uL (2.7-7.7); Neutrophil % 63.2 % (47-70); Platelet Count 182 K/mm3 (150-450); RBC Distribution Width CV 12.5 % (11.6-14.6); Red Blood Count 4.11 M/mm3 (4.6-6.2); White Blood Count 5.4 K/mm3 (4.4-11.0)
--- NOTE | 2021-10-16 11:52 | CT_ITS ---
STUDY: CT BRAIN WITHOUT CONTRAST REASON FOR EXAM: Male, 66 years old. Head injury RADIATION DOSAGE (If Supplied By Facility): CTDIvol = ( 44.99 ) mGy, DLP = ( 829.85 ) mGycm TECHNIQUE: Transaxial CT imaging of the brain was performed without administration of intravenous contrast material. Individualized dose optimization techniques were used for this CT. COMPARISON: 07/21/2021 FINDINGS: Normal soft tissue structures. Normal calvarium. Normal size ventricles and extra-axial spaces for the patient''s age. Normal white matter tracts of the cerebral hemispheres. There are small punctate calcifications of the basal ganglia which are seen in the aging brain as a normal variant. Normal brainstem. Normal cerebellum. There is no intracranial hemorrhage. There are no findings of an acute ischemic infarction. Normal visualized paranasal sinuses. CT/Brain/Head without Contrast IMPRESSION: Normal unenhanced CT scan of the brain. Electronically Signed: Brian Ramos MD at 12:09 EST ,
[2021-10-16 11:58] LABS: Partial Thromboplast Time 29.5 Seconds (24.1-36.2); Prothrombin Time (Protime)PT. 12.9 SECONDS (11.7-14.9)
[2021-10-16 12:02] LABS: AST(SGOT) 17 U/L (15-37); Alanine Aminotransfer ALT/SGPT 30 U/L (16-61); Albumin, Serum 3.8 g/dL (3.2-5.0); Alkaline Phosphatase 140 U/L (45-117); Anion Gap 4 (5-15); BUN 31 mg/dL (7-18); BUN/Creat Ratio 37.7 RATIO (10-20); Calcium,Total 8.9 mg/dL (8.5-10.1); Chloride 105 mmol/L (98-107); Creatinine, Serum 0.82 mg/dL (0.70-1.30); EST Glomerular Filtration Rate 99 mL/min (>60); Est Glom Filt Rate - Afr Amer 120 mL/min (>60); Estimated Creatinine Clearance 89.02 ml/min; Globulin 3.9 g/dL (2.2-4.2); Glucose 136 mg/dL (74-106); Potassium 4.4 mmol/L (3.5-5.1); Protein, Total 7.7 g/dL (6.4-8.2); Sodium Level 137 mmol/L (136-145); Troponin-I HS 5 pg/mL (3.0-78.0)
[2021-10-16 13:03] VITALS: BP 126/80; PULSE 69; RESP 16; O2SAT 96
[2021-10-16 13:37] VITALS: BP 124/78; BP 134/79; BP 92/66; PULSE 70; PULSE 72; PULSE 80
[2021-10-16 13:49] VITALS: BP 138/74; PULSE 75; RESP 16; O2SAT 100
== END 2021-10-16 13:49 | disposition home or self-care (01) ==
PROVIDERS: Emergency Provider Emergency Medicine; PCP Family Medicine; Visit Provider Emergency Medicine
DX: S09.90XA Unspecified injury of head, initial encounter (principal); I25.118 Atherosclerotic heart disease of native coronary artery with other forms of angina pectoris; E11.9 Type 2 diabetes mellitus without complications; I10 Essential (primary) hypertension; E78.5 Hyperlipidemia, unspecified; R55 Syncope and collapse; M54.2 Cervicalgia; N40.0 Benign prostatic hyperplasia without lower urinary tract symptoms; E66.9 Obesity, unspecified; Z79.82 Long term (current) use of aspirin; Z79.84 Long term (current) use of oral hypoglycemic drugs; Z79.02 Long term (current) use of antithrombotics/antiplatelets; Z95.5 Presence of coronary angioplasty implant and graft
CPT/HCPCS: 70450; 72125; 80053; 84484; 85025; 85610; 85730; 87426; 93005; 99285

== ENCOUNTER 2021-10-18 12:57 | Outpatient (CLI) | payer MEDICARE, SELFPAY ==
[2020-09-11 08:28] VITALS: BMI 29.2
[2021-10-18 14:10] LABS: AST(SGOT) 19 U/L (15-37); Alanine Aminotransfer ALT/SGPT 26 U/L (16-61); Albumin, Serum 3.8 g/dL (3.2-5.0); Alkaline Phosphatase 123 U/L (45-117); Bilirubin, Direct 0.09 mg/dL (0.00-0.30); Cholesterol 101 mg/dL (200); Globulin 3.7 g/dL (2.2-4.2); High Density Lipoprotein 42 mg/dL; Protein, Total 7.5 g/dL (6.4-8.2); Triglycerides 85 mg/dL; Very Low Density Lipoprotein 17 mg/dL (5-40)
== END 2021-10-18 23:59 | disposition home or self-care (01) ==
LOC: PSN 12:58
PROVIDERS: Nurse Practitioner Family; PCP Family Medicine; Referring Provider Physician Assistant Medical; Visit Provider Physician Assistant Medical
DX: R55 Syncope and collapse (principal); E78.00 Pure hypercholesterolemia, unspecified; E78.5 Hyperlipidemia, unspecified
CPT/HCPCS: 36415; 80061; 80076; 93225; 93226

== ENCOUNTER 2021-11-02 11:09 | Emergency (ER) | payer MEDICARE, SELFPAY ==
[2020-09-11 08:28] VITALS: BMI 29.2
[2021-11-02 11:10] VITALS: BP 148/82; PULSE 86; RESP 17; TEMP 36.1; O2SAT 98; BMI 24.7
--- NOTE | 2021-11-02 11:31 | CT_ITS ---
STUDY: CT BRAIN WITHOUT CONTRAST REASON FOR EXAM: Male, 66 years old. Headache RADIATION DOSAGE (If Supplied By Facility): CTDIvol = ( 44.99 ) mGy, DLP = ( 779.24 ) mGycm TECHNIQUE: Transaxial CT imaging of the brain was performed without administration of intravenous contrast material. Individualized dose optimization techniques were used for this CT. COMPARISON: Comparison is made with prior study dated 10/16/2021. FINDINGS: Normal soft tissue structures. Normal calvarium. Normal size ventricles and extra-axial spaces for the patient''s age. Normal white matter tracts of the cerebral hemispheres. There are small punctate calcifications of the basal ganglia which are seen in the aging brain as a normal variant. Normal brainstem. Normal cerebellum. There is no intracranial hemorrhage. There are no findings of an acute ischemic infarction. Atherosclerotic calcification of the cavernous portions of the internal carotid arteries bilaterally. Normal visualized paranasal sinuses. CT/Brain/Head without Contrast IMPRESSION: Normal unenhanced CT scan of the brain. Electronically Signed: Robert Mandujano MD at 12:43 EST ,
--- NOTE | 2021-11-02 11:31 | EKG12_ITS ---
Test Reason : HEAD INJURY Blood Pressure : / mmHG Vent. Rate : 081 BPM Atrial Rate : 081 BPM P-R Int : 166 ms QRS Dur : 088 ms QT Int : 356 ms P-R-T Axes : 056 023 015 degrees QTc Int : 413 ms Normal sinus rhythm Normal ECG Confirmed by SHAHID POTTER, HUSSAIN ([id number]), market editor CODY YOON ([id number]) on 11/05/2021 10:52:25 AM Referred By: CAMELIA Confirmed By:HUSSAIN KEY MD
--- NOTE | 2021-11-02 11:45 | EX.ED.GENINJ ---
HPI <KARO Dennis - Last Filed: 11/02/21 13:00> History of Present Illness Chief Complaint: Head Injury Narrative Narrative: 66-year-old male with history of hyperlipidemia, type 2 diabetes, NC, hypertension, CAD presents to the emergency department with an ongoing headache, dizziness since a fall, head injury which occurred October 13. Patient did get seen at that time, patient did have a CT scan which was negative. Over the last couple weeks, patient has had worsening dizziness, worsening occipital headache. Patient was referred here by his PCP for further evaluation. Patient denies any fevers, chills, nausea vomiting. PFS <KARO Dennis - Last Filed: 11/02/21 13:00> [facility] Medical History Arteriosclerotic heart disease (ASHD) Atherosclerotic heart disease of [place] coronary artery without angina pectoris Bilateral carotid artery stenosis Bilateral carotid artery stenosis BPH (benign prostatic hyperplasia) Coronary artery disease with exertional angina COVID-19 DDD (degenerative disc disease) Elevated LFTs Essential (primary) hypertension Hyperlipidemia Obesity Sciatica Syncope Type 2 diabetes mellitus Unstable angina Home Medications aspirin 81 mg PO DAILY@0800 09/13/13 [History Last Taken 04/26/21] omega 0-raw-hgv-fish oil 1,000 mg (120 mg-180 mg) capsule 1,000 mg PO QDAY cap 01/06/18 [History Last Taken Unknown] metformin 500 mg tablet,extended release 24 hr 1,000 mg PO BID tab 07/25/20 [History Last Taken 04/25/21] atorvastatin 80 mg tablet 80 mg PO DAILY #90 tab 12/29/20 [Rx Last Taken Unknown] gabapentin 800 mg tablet 800 mg PO BID 01/01/21 [History Last Taken Unknown] nitroglycerin 0.4 mg sublingual tablet 0.4 mg SUBLINGUAL Q5M PRN #25 tab 01/01/21 [Rx Last Taken Unknown] carvedilol 3.125 mg tablet 3.125 mg PO BID #180 tab 01/03/21 [Rx Last Taken 04/26/21] amlodipine 5 mg tablet 5 mg PO DAILY #90 tab 03/21/21 [Rx Last Taken 04/26/21] clopidogrel 75 mg tablet 75 mg PO DAILY #90 tab 07/04/21 [Rx Last Taken Unknown] amitriptyline 150 mg PO QHS 10/16/21 [History Last Taken Unknown] Allergy/AdvReac Type Severity Reaction Status Date / Time perfumes Allergy unknown Uncoded 11/02/21 11:09 Family History Sister CAD (coronary artery disease) CVA (cerebral vascular accident) Diabetes Myocardial infarction Hx of CABG Mother Cancer Lung CA Surgical History History of cataract surgery History of coronary artery stent placement (07/23/21) History of hand surgery History of left heart catheterization (02/01/19) Hx of appendectomy Social History Smoking Status: Never smoker alcohol intake: never substance use type: does not use caffeine: Yes Type: coffee what type of physical activity do you participate in: none seatbelt use: always do you feel safe at home: Yes ROS <KARO Dennis - Last Filed: 11/02/21 13:00> ROS ED ROS Narrative Constitutional: Negative for fever, chills, weight loss or gain, weakness Eyes: Negative for vision loss, vision change, double vision ENT: Negative for any hearing changes, ringing in the ears,discharge, pain. Positive for dizziness Nose: Negative for any congestion, runny nose, sinus pain, allergies Throat: Negative for any sore throat hoarseness, voice changes, Cardiovascular: Negative for any chest pain, tightness, palpitations, racing heartbeat Respiratory: Negative for any coughs, sputum production, coughing, hemoptysis, shortness of breath, shortness of breath on exertion, Gastrointestinal: Negative for any abdominal pain, nausea, vomiting, diarrhea, constipation, blood in stool, blood in vomit : Negative for any urinary frequency, incontinence, dysuria, retention, blood in urine Muscle skeletal: Negative for any muscle joint pain, stiffness, myalgias, arthralgias, neck pain, back pain Neurological: Negative for any head injury, dizziness, syncope, numbness or tingling. Positive for occipital headache, dizziness Skin: Negative for any rashes, lumps, itching, abrasions, lacerations Psychiatric: Negative for any depression, anxiety, stress, suicidal ideation, homicidal ideation Hematologic: Negative for any easy bruising, excessive bruising, easy bleeding Allergies: Negative for any eczema, hives, rash EXAM <KARO Dennis - Last Filed: 11/02/21 13:00> Physical Exam Const Vital Signs: 11/02/21 11:10 11/02/21 11:26 Temperature 96.9 F L Temperature Source Temporal Pulse Rate 86 Respiratory Rate 17 Respiratory Effort Normal Non-Labored Respiratory Pattern Normal Blood Pressure 148/82 H Blood Pressure Mean 104 Pulse Ox 98 Oxygen Delivery Method Room Air HEENT HEENT Narrative: Patient states he does have pain to the occiput, there is no ecchymosis, negative for any edema. Negative for any deeper skull fracture. atraumatic Eyes PERRL and EOMs intact bilaterally Chest Wall inspection of chest normal Resp normal respiratory effort Cardio regular rhythm Rate: regular rate GI normal to inspection, nondistended, normoactive bowel sounds Back/Spine normal to inspection and no thoracic nor lumbar tenderness Extremity normal to inspection Neuro oriented x3 and no sensory deficits noted Sensorium / Orientation: alert Skin no rashes or lesions noted and no wounds <Dr. Jose Mendenhall, DO - Last Filed: 11/09/21 22:52> Physical Exam Const Vital Signs: 11/02/21 11:10 11/02/21 11:26 Temperature 96.9 F L Temperature Source Temporal Pulse Rate 86 Respiratory Rate 17 Respiratory Effort Normal Non-Labored Respiratory Pattern Normal Blood Pressure 148/82 H Blood Pressure Mean 104 Pulse Ox 98 Oxygen Delivery Method Room Air MDM <KARO Dennis - Last Filed: 11/02/21 13:00> [facility] Narrative Medical decision making narrative: Lab Data Attestation: I reviewed the patient's lab results. Labs: Laboratory Results - last 24 hr 11/02/21 11/02/21 11/02/21 11:49 12:22 12:22 WBC 5.1 RBC 4.13 L Hgb 12.0 L Hct 35.6 L MCV 86.2 MCH 29.1 MCHC 33.7 RDW Std Deviation 39.7 RDW Coeff of Megan 12.6 Plt Count 170 MPV 9.1 Immature Gran % (Auto) 0.200 Neut % (Auto) 61.5 Lymph % (Auto) 25.6 [place] % (Auto) 8.5 Eos % (Auto) 3.4 Baso % (Auto) 0.8 Absolute Neuts (auto) 3.1 Absolute Lymphs (auto) 1.30 Nucleated RBC % 0 Sodium 137 Potassium 4.3 Chloride 105 Carbon Dioxide 26.0 Anion Gap 6 BUN 17 Creatinine 0.86 Estim Creat Clear Calc 84.88 Est GFR (MDRD) Af Amer 114 Est GFR (MDRD) Non-Af 94 BUN/Creatinine Ratio 19.8 Glucose 119 H Calcium 9.2 Urine Color Yellow Urine Clarity Clear Urine pH 6.0 Ur Specific [place] 1.010 Urine Protein Negative Urine Glucose (UA) Normal Urine Ketones Negative Urine Occult Blood Negative Urine Nitrite Negative Urine Bilirubin Negative Urine Urobilinogen Normal Ur Leukocyte Esterase Negative Urine RBC 0 SEEN Urine WBC 0 SEEN Ur Squamous Epith Cells 0 SEEN Urine Bacteria 0 SEEN Urine Mucus 0 SEEN Radiography Diagnostic Testing: Clinical Impression(s) from Imaging Studies Brain CT 11/02/21 11:31 IMPRESSION: Normal unenhanced CT scan of the brain. Electronically Signed: Robert Mandujano MD at 12:43 EST , EKG Normal sinus rhythm: Attestation: I personally reviewed and interpreted this EKG as follows: Interpretation: Sinus Rhythm Comments: Normal sinus rhythm, rate of 81 bpm, NV interval 166 ms, QRS duration 88 ms. Treatment and Re-Evaluation Comments:: Patient appears well, patient appears nontoxic, vital signs are stable. Patient presents to the emergency department with complaints of headache, dizziness post a fall 3.5 weeks ago. Patient did receive a full work-up, patient received a CT of brain without contrast, this was unremarkable. Patient did receive laboratory studies were grossly unremarkable. Patient was given Tylenol for his pain, was ambulated around the department and did well. I believe the patient is suffering from concussion syndrome, patient also has palpable scalp pain from the fall. Patient struck to use [id number] ibuprofen, Tylenol and will follow up with his physician. Patient feels stable going home and instructed return for any worsening symptoms. <Dr. 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 I perform my own faim-tf-eiis evaluation. I agree with the plan of work-up. Mechanical fall back on October 13 with head injury. Since then headaches dizziness. No new injuries. Patient on aspirin and Plavix. Exam no focal deficits, no photophobia. No meningismus. Reimagings due to persistent symptoms obtained negative. Patient able to ambulate. Discussed postconcussive syndrome. Tylenol as needed with follow-up as an outpatient. Lab Data Labs: Laboratory Results - last 24 hr 11/02/21 11/02/21 11/02/21 11:49 12:22 12:22 WBC 5.1 RBC 4.13 L Hgb 12.0 L Hct 35.6 L MCV 86.2 MCH 29.1 MCHC 33.7 RDW Std Deviation 39.7 RDW Coeff of [place] 12.6 Plt Count 170 MPV 9.1 Immature Gran % (Auto) 0.200 Neut % (Auto) 61.5 Lymph % (Auto) 25.6 [place] % (Auto) 8.5 Eos % (Auto) 3.4 Baso % (Auto) 0.8 Absolute Neuts (auto) 3.1 Absolute Lymphs (auto) 1.30 Nucleated RBC % 0 Sodium 137 Potassium 4.3 Chloride 105 Carbon Dioxide 26.0 Anion Gap 6 BUN 17 Creatinine 0.86 Estim Creat Clear Calc 84.88 Est GFR (MDRD) Af Amer 114 Est GFR (MDRD) Non-Af 94 BUN/Creatinine Ratio 19.8 Glucose 119 H Calcium 9.2 Urine Color Yellow Urine Clarity Clear Urine pH 6.0 Ur Specific [place] 1.010 Urine Protein Negative Urine Glucose (UA) Normal Urine Ketones Negative Urine Occult Blood Negative Urine Nitrite Negative Urine Bilirubin Negative Urine Urobilinogen Normal Ur Leukocyte Esterase Negative Urine RBC 0 SEEN Urine WBC 0 SEEN Ur Squamous Epith Cells 0 SEEN Urine Bacteria 0 SEEN Urine Mucus 0 SEEN Radiography Diagnostic Testing: Clinical Impression(s) from Imaging Studies Brain CT 11/02/21 11:31 IMPRESSION: Normal unenhanced CT scan of the brain. Electronically Signed: Robert Mandujano MD at 12:43 EST , Discharge Plan Triage Chief Complaint: Head Injury ED Provider: Keenan Marcus Dx/Rx/DC Orders Clinical Impression: Headache, CHI (closed head injury) Instructions: After a Concussion, Communicating About Pain, ED Head Injury (Adult) Prescriptions: No Action omega 7-csd-neu-fish oil [Fish Oil] 1,000 mg (120 mg-180 mg) capsule 1,000 mg PO QDAY RF: 0 metformin 500 mg tablet extended release 24 hr 1,000 mg PO BID RF: 0 gabapentin 800 mg tablet 800 mg PO BID RF: 0 nitroglycerin 0.4 mg tablet, sublingual 0.4 mg SUBLINGUAL Q5M PRN (Reason: Chest Pain) Qty: 25 RF: 6 aspirin 81 MG tablet 81 mg PO DAILY@0800 RF: 0 amitriptyline 150 mg tablet 150 mg PO QHS RF: 0 atorvastatin 80 mg tablet 80 mg PO DAILY Qty: 90 RF: 3 carvedilol [Coreg] 3.125 mg tablet 3.125 mg PO BID Qty: 180 RF: 3 amlodipine 5 mg tablet 5 mg PO DAILY Qty: 90 RF: 3 clopidogrel [Plavix] 75 mg tablet 75 mg PO DAILY Qty: 90 RF: 3 Primary Care Provider: Nadir Abdalla Referrals: Nadir Abdalla MD [Primary Care Provider] - Activity Restrictions/Additional Instructions: Please follow-up with your PCP. Please use Tylenol, and return here for any worsening head pain, weakness, nausea, vomiting. Disposition Disposition: Home, Self Care Discharge Date/Time: 11/02/21 23:59
[2021-11-02 11:57] LABS: Bacteria 0 SEEN /hpf (None Seen); Mucous, Urine 0 SEEN /hpf (<or=2+); Red Blood Cells-Urine 0 SEEN /hpf (0-5); Squamous Epithelial Cells - UA 0 SEEN /hpf (0-5); White Blood Cells 0 SEEN /hpf (0-5)
[2021-11-02 12:18] LABS: Color, Urine Yellow (Yellow); Glucose, Dipstick Normal (Normal); Ketone-Dipstick Negative (Negative); Leukocyte Esterase-Dipstick Negative /ul (Negative); Nitrite-Dipstick Negative (Negative); Occult Blood-Urine Negative /ul (Negative); Protein-Dipstick Negative (Negative); Urine Bilirubin Dipstick Negative (Negative); Urine Clarity Clear (Clear); Urine Urobilinogen Normal (Normal)
[2021-11-02 12:30] LABS: Absolute Neutrophil Count 3.1 X10^3/uL (2.0-7.7); Basophil# 0.04 X10^3/uL; Basophil% 0.8 % (0-1); Eosinophil# 0.17 X10^3/uL; Eosinophils% 3.4 % (0-5); Hematocrit 35.6 % (40-54); Lymphocyte % 25.6 % (19-41); Mean Corp Hgb Conc 33.7 g/dL (32-36); Mean Corpuscular Hgb 29.1 pg (27.0-32.0); Mean Corpuscular Volume 86.2 fL (80-94); Mean Platelet Vol. 9.1 fl (6.2-12.0); Monocyte# 0.43 X10^3/uL; Monocyte% 8.5 % (0-10); NRBC Flagged by Analyzer 0 % (0-5); Neutrophil # 3.12 X10^3/uL (2.7-7.7); Neutrophil % 61.5 % (47-70); Platelet Count 170 K/mm3 (150-450); RBC Distribution Width CV 12.6 % (11.6-14.6); RBC Distribution Width SD 39.7 fl (35.1-43.9); Red Blood Count 4.13 M/mm3 (4.6-6.2); White Blood Count 5.1 K/mm3 (4.4-11.0)
[2021-11-02 12:44] LABS: Anion Gap 6 (5-15); BUN 17 mg/dL (7-18); BUN/Creat Ratio 19.8 RATIO (10-20); Calcium,Total 9.2 mg/dL (8.5-10.1); Chloride 105 mmol/L (98-107); Creatinine, Serum 0.86 mg/dL (0.70-1.30); EST Glomerular Filtration Rate 94 mL/min (>60); Est Glom Filt Rate - Afr Amer 114 mL/min (>60); Estimated Creatinine Clearance 84.88 ml/min; Glucose 119 mg/dL (74-106); Potassium 4.3 mmol/L (3.5-5.1); Sodium Level 137 mmol/L (136-145)
[2021-11-02] MEDS: Acetaminophen 500 MG Tablet 1000 MG PO (13:25)
== END 2021-11-02 13:35 | disposition home or self-care (01) ==
PROVIDERS: Emergency Provider Nurse Practitioner; PCP Family Medicine; Visit Provider Nurse Practitioner
DX: S09.90XA Unspecified injury of head, initial encounter (principal); I25.110 Atherosclerotic heart disease of native coronary artery with unstable angina pectoris; E11.9 Type 2 diabetes mellitus without complications; W19.XXXA Unspecified fall, initial encounter; I10 Essential (primary) hypertension; E78.5 Hyperlipidemia, unspecified; E66.9 Obesity, unspecified; I25.2 Old myocardial infarction; Z79.82 Long term (current) use of aspirin; Z79.84 Long term (current) use of oral hypoglycemic drugs; Z79.02 Long term (current) use of antithrombotics/antiplatelets; Z79.899 Other long term (current) drug therapy; Z95.5 Presence of coronary angioplasty implant and graft
CPT/HCPCS: 70450; 80048; 81001; 85025; 93005; 99283; A4216

== ENCOUNTER 2021-12-13 06:13 | Day surgery (SDC) | payer MEDICARE, SELFPAY ==
[2020-09-11 08:28] VITALS: BMI 29.2
[2021-12-12 07:46] VITALS: BMI 24.3
--- NOTE | 2021-12-13 09:38 | CL.IE_ITS ---
Patient: PRESTON BATES Study Date: 12/13/2021 Performing: Jd Nickerson MD : [id number] Age: 66 Gender: male PROCEDURES PERFORMED [id number])INSERTION OF LOOP RECORDER INDICATIONS Syncope PROCEDURE DETAILS The patient was brought to the Catheterization Lab in the postabsorptive nonsedated state. [facility] was obtained prior to the procedure. Incision was made to the left upper chest. Steri-st rips applied to Lt chest area. Instrument, sponge, and needle counts were noted to be normal. The pat ient tolerated the procedure well. 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 Device Recommendations: Follow up with Primary Care Physician PROCEDURE MEDICATIONS Versed 1 mg IV Fentanyl 50 mcg IV Oxygen: 2 L/min via nasal cannula Ancef 2 Gm IV @ 12/13/2021 08:10:56 Signed By Jd Nickerson MD On 12/13/2021 09:37:14 Jd Nickerson MD
== END 2021-12-13 09:35 | disposition home or self-care (01) ==
LOC: CLSP 06:14
PROVIDERS: PCP Family Medicine; Referring Provider Internal Medicine Cardiovascular Disease; Visit Provider Internal Medicine Cardiovascular Disease
DX: R55 Syncope and collapse (principal); E11.9 Type 2 diabetes mellitus without complications; I25.10 Atherosclerotic heart disease of native coronary artery without angina pectoris; Z95.5 Presence of coronary angioplasty implant and graft; I10 Essential (primary) hypertension; E78.5 Hyperlipidemia, unspecified; Z79.82 Long term (current) use of aspirin; Z79.02 Long term (current) use of antithrombotics/antiplatelets; Z79.84 Long term (current) use of oral hypoglycemic drugs; Z79.899 Other long term (current) drug therapy
CPT/HCPCS: 33285; 99152; 99153; J7040

== ENCOUNTER 2021-12-18 08:55 | Outpatient (CLI) | payer MEDICARE, SELFPAY ==
[2020-09-11 08:28] VITALS: BMI 29.2
[2021-12-18 10:42] LABS: T3 Uptake 34 % (33-40); T4 Total, Thyroxin 8.2 ug/dL (4.5-12.1); T7 / Free Thyroxin Index 2.8 (1.4-4.5); Thyroid Stim Hormone (TSH) 2.72 uIU/mL (0.358-3.74)
== END 2021-12-18 23:59 | disposition home or self-care (01) ==
PROVIDERS: PCP Family Medicine; Referring Provider Physician Assistant Medical; Visit Provider Physician Assistant Medical
DX: R53.83 Other fatigue (principal); I95.9 Hypotension, unspecified
CPT/HCPCS: 36415; 84436; 84443; 84479

== ENCOUNTER 2021-12-29 17:19 | Emergency (ER) | payer MEDICARE, SELFPAY ==
[2020-09-11 08:28] VITALS: BMI 29.2
[2021-12-29 17:20] VITALS: BP 137/87; PULSE 102; RESP 16; TEMP 36.3; O2SAT 98; BMI 24.9
--- NOTE | 2021-12-29 17:52 | EX.ED.DYSGE1 ---
HPI <CAMELIA Ludwig - Last Filed: 12/29/21 19:03> History of Present Illness Chief Complaint: Allergic Reaction Narrative Narrative: Patient presents with concern for allergic reaction. He started fludrocortisone about a week ago for syncope secondary to hypotension. 3 days ago he noted slight swelling of his upper lip and tongue but the lip swelling worsened today which prompted him to come in. No difficulty swallowing or handling secretions. He states he feels a little short of breath but has no chest pain. No nausea or vomiting. No rash, hives, or itchiness. Denies any other new medications, foods, exposures etc. PFS <CAMELIA Ludwig - Last Filed: 12/29/21 19:03> [facility] Medical History (Updated 12/29/21 @ 20:[address] Nicko Rabago MD) Atherosclerotic heart disease of [place] coronary artery without angina pectoris Bilateral carotid artery stenosis BPH (benign prostatic hyperplasia) Complication of artery following procedure, not elsewhere classified COVID-19 DDD (degenerative disc disease) Elevated LFTs Essential (primary) hypertension Hyperlipidemia Injury of radial artery Obesity Sciatica Syncope Type 2 diabetes mellitus Unstable angina Home Medications aspirin 81 mg PO DAILY@0800 09/13/13 [History Last Taken 12/29/21] omega 9-fnm-isz-fish oil 1,000 mg (120 mg-180 mg) capsule 1,000 mg PO QDAY cap 01/06/18 [History Last Taken 12/29/21] metformin 500 mg tablet,extended release 24 hr 1,000 mg PO BID tab 07/25/20 [History Last Taken 12/29/21] gabapentin 800 mg tablet 800 mg PO BID 01/01/21 [History Last Taken 12/29/21] nitroglycerin 0.4 mg sublingual tablet 0.4 mg SUBLINGUAL Q5M PRN #25 tab 01/01/21 [Rx Last Taken Unknown] clopidogrel 75 mg tablet 75 mg PO DAILY #90 tab 07/04/21 [Rx Last Taken 12/29/21] amitriptyline 150 mg PO QHS 10/16/21 [History Last Taken 12/28/21] fludrocortisone 0.1 mg tablet 0.1 mg PO DAILY #30 tab 12/20/21 [Rx Last Taken 12/29/21] atorvastatin 80 mg PO DAILY 12/29/21 [History Last Taken 12/28/21] prednisone 40 mg PO DAILY 4 Days #8 tab 12/29/21 [Rx Last Taken Unknown] Allergy/AdvReac Type Severity Reaction Status Date / Time perfumes Allergy unknown Uncoded 12/29/21 17:20 Family History Sister CAD (coronary artery disease) CVA (cerebral vascular accident) Diabetes Myocardial infarction Hx of CABG Mother Cancer Lung CA Surgical History History of cataract surgery History of coronary artery stent placement (07/23/21) History of hand surgery History of left heart catheterization (02/01/19) History of loop recorder (12/13/21) Hx of appendectomy Social History Smoking Status: Never smoker alcohol intake: never substance use type: does not use caffeine: Yes Type: coffee what type of physical activity do you participate in: none seatbelt use: always do you feel safe at home: Yes ROS <CAMELIA Ludwig - Last Filed: 12/29/21 19:03> ROS ED ROS Narrative Constitutional: Negative for fever, chills, malaise. Eyes: Negative for visual change. ENT: Negative for sore throat, ear pain, rhinorrhea. CVS: Negative for palpitations, chest pain, syncope. Respiratory: Positive for shortness of breath. Negative for cough, orthopnea. GI: Negative for abdominal pain, nausea, vomiting, diarrhea, constipation, melena, hematochezia. : Negative for dysuria, hematuria or frequency. Neuro: Negative for headache, motor/sensory dysfunction. Skin: Negative for rash, abscess, or wound. Musc: Negative for joint pain, swelling, trauma. Heme: Negative for easy bruising, bleeding, lymphadenopathy. EXAM <CAMELIA Ludwig - Last Filed: 12/29/21 19:03> Physical Exam Narrative Exam Narrative: CONST: Patient sitting in no acute distress. EYES: Normal inspection. ENT: Upper lip is swollen, lower lip normal. Tongue appears normal. Airway patent with midline uvula. Handling oral secretions normally. NECK: Normal inspection. Trachea midline, no masses or lymphadenopathy. No stridor. RESP: No respiratory distress, CTAB. CVS: Regular rate and rhythm, no murmur, no gallop. SKIN: Color normal, no rash, warm, dry, intact. EXTREMITIES: Normal appearance, no pedal edema. NEURO: Oriented x4. PSYCH: Normal affect. Const Vital Signs: 12/29/21 17:20 12/29/21 18:03 12/29/21 19:16 Temperature 97.4 F L Temperature Source Temporal Pulse Rate 102 H 90 82 Respiratory Rate 16 12 19 H Blood Pressure 137/87 H 140/77 H 116/80 Blood Pressure Mean 103 98 92 Pulse Ox 98 96 95 Oxygen Delivery Method Room Air Room Air Room Air 12/29/21 19:58 12/29/21 20:32 Temperature Temperature Source Pulse Rate 78 81 Respiratory Rate 19 H 19 H Blood Pressure 134/80 H 139/78 H Blood Pressure Mean 98 98 Pulse Ox 99 95 Oxygen Delivery Method Room Air Room Air <Dr. Nicko Rabago MD - Last Filed: 12/29/21 20:56> Physical Exam Const Vital Signs: 12/29/21 17:20 12/29/21 18:03 12/29/21 19:16 Temperature 97.4 F L Temperature Source Temporal Pulse Rate 102 H 90 82 Respiratory Rate 16 12 19 H Blood Pressure 137/87 H 140/77 H 116/80 Blood Pressure Mean 103 98 92 Pulse Ox 98 96 95 Oxygen Delivery Method Room Air Room Air Room Air 12/29/21 19:58 12/29/21 20:32 Temperature Temperature Source Pulse Rate 78 81 Respiratory Rate 19 H 19 H Blood Pressure 134/80 H 139/78 H Blood Pressure Mean 98 98 Pulse Ox 99 95 Oxygen Delivery Method Room Air Room Air MDM <CAMELIA Ludwig - Last Filed: 12/29/21 19:03> [facility] Narrative Medical decision making narrative: Patient presents with lip and tongue swelling after starting fludrocortisone. He appears well and nontoxic. BP is 137/87, HR 102, 98% on room air. He is sitting in no acute distress. He does have swelling of his upper lip but no appreciable swelling of the tongue. Airway is patent with midline uvula. No stridor or voice changes. He is handling oral secretions appropriately. Heart is regular and lungs sounds are clear. Abdomen is soft and nontender. Skin inspected with no rash or urticaria present. He will be treated for an allergic reaction with IV fluids, Solu-Medrol, Benadryl, and Pepcid. At this time with normal vital signs and no respiratory issues there is no indication for epinephrine. His other medications were reviewed and none of them are likely to cause angioedema. No PANFILO inhibitor. Patient will be monitored and further evaluated by the attending physician. 1. Angioedema, allergic reaction <Dr. Nicko Rabago MD - Last Filed: 12/29/21 20:56> [facility] MDM Narrative Medical decision making narrative: Patient notes a little swelling of the lips. He had swelling of the tongue but that is better. The only thing he can think of that is different is fludrocortisone that he started about a week ago. No trouble breathing. No rash. Nothing makes it better or worse. Patient has mild swelling of the left upper lip and the lower lip. Tongue is normal. Voice is normal. He also has some dryness. Its unclear if this is truly angioedema or other. But there is no crusting. There is no lesions. No sign of infection. No ulceration. Lungs are clear. Patient was treated with Pepcid Benadryl steroids here. He is doing well. Although he has had some mild reaction. I am not sure if this is fludrocortisone or not. I did recommend he hold this. I will treat with prednisone. It is not certain if he had reaction to fludrocortisone or another compound. But we will hold this for this time. We can have reaction to 1 steroid not the other. He has had no issues with Solu-Medrol. He also will use Pepcid and Claritin [id number]. Discharge Plan Triage Chief Complaint: Allergic Reaction ED Provider: Kimi Wahl Dx/Rx/DC Orders Clinical Impression: Lip swelling, Allergy, drug Instructions: ED ADVERSE DRUG REACTION Allergic Prescriptions: New prednisone 20 MG tablet 40 mg PO DAILY 4 Days Qty: 8 RF: 0 No Action omega 3-wiz-mzx-fish oil [Fish Oil] 1,000 mg (120 mg-180 mg) capsule 1,000 mg PO QDAY RF: 0 metformin 500 mg tablet extended release 24 hr 1,000 mg PO BID RF: 0 gabapentin 800 mg tablet 800 mg PO BID RF: 0 nitroglycerin 0.4 mg tablet, sublingual 0.4 mg SUBLINGUAL Q5M PRN (Reason: Chest Pain) Qty: 25 RF: 6 fludrocortisone 0.1 mg tablet 0.1 mg PO DAILY Qty: 30 RF: 11 aspirin 81 MG tablet 81 mg PO DAILY@0800 RF: 0 amitriptyline 150 mg tablet 150 mg PO QHS RF: 0 atorvastatin 80 mg tablet 80 mg PO DAILY RF: 0 clopidogrel [Plavix] 75 mg tablet 75 mg PO DAILY Qty: 90 RF: 3 Primary Care Provider: Nadir Abdalla Referrals: Jd Nickerson MD [STAFF PHYSICIAN] - As soon as possible Nadir Abdalla MD [Primary Care Provider] - Disposition Disposition: Home, Self Care
[2021-12-29] MEDS: DiphenhydrAMINE 50 MG/ML Syringe 25 MG IV (17:53)
[2021-12-29] MEDS: Famotidine 200 MG/20 ML MDV 20 MG in 0.9% Normal Saline (Pres. free 8 ML 300 MG IV (18:01)
[2021-12-29 18:03] VITALS: BP 140/77; PULSE 90; RESP 12; O2SAT 96
[2021-12-29] MEDS: 0.9% Normal Saline 1,000 ML 999 ML IV (18:10)
[2021-12-29] MEDS: MethylPREDNISolone 125 MG/2 ML Vial IV (18:16)
[2021-12-29 19:16] VITALS: BP 116/80; PULSE 82; RESP 19; O2SAT 95
[2021-12-29 19:58] VITALS: BP 134/80; PULSE 78; RESP 19; O2SAT 99
[2021-12-29 20:32] VITALS: BP 139/78; PULSE 81; RESP 19; O2SAT 95
[2021-12-29 21:03] VITALS: BP 143/80; PULSE 83; RESP 17; O2SAT 98
== END 2021-12-29 21:04 | disposition home or self-care (01) ==
PROVIDERS: Emergency Provider Physician Assistant; PCP Family Medicine; Visit Provider Physician Assistant
DX: T78.3XXA Angioneurotic edema, initial encounter (principal); E11.9 Type 2 diabetes mellitus without complications; I25.10 Atherosclerotic heart disease of native coronary artery without angina pectoris; I10 Essential (primary) hypertension; E78.5 Hyperlipidemia, unspecified; N40.0 Benign prostatic hyperplasia without lower urinary tract symptoms; E66.9 Obesity, unspecified; Z79.82 Long term (current) use of aspirin; Z79.84 Long term (current) use of oral hypoglycemic drugs; Z79.02 Long term (current) use of antithrombotics/antiplatelets; Z79.52 Long term (current) use of systemic steroids; Z79.899 Other long term (current) drug therapy; Z95.5 Presence of coronary angioplasty implant and graft
CPT/HCPCS: 96361; 96374; 96375; 99283; J7030; A4216; J3490

== ENCOUNTER → 2022-01-18 | Outpatient (CLI) | payer MEDICARE, SELFPAY ==
[2020-09-11 08:28] VITALS: BMI 29.2
--- NOTE | 2022-01-18 12:26 | STRESSREP ---
Stress Test Report Pharmacologic myocardial perfusion stress test. 66-year-old man with a history of recurrent syncope. Resting EKG demonstrates normal sinus rhythm with a rate of 89 bpm normal intervals are noted resting blood pressure is 124/64 mmHg. 0.4 mg of regadenoson was infused per usual protocol followed by intravenous saline injection. Continuous EKG monitoring was performed. The patient maintained sinus rhythm throughout the recording. There were no ST or T wave changes noted to suggest abnormal flow reserve the final blood pressure was 104/62 mmHg. No clinical angina was noted. Myocardial perfusion protocol. 11.8 mCi of technetium 99m sestamibi was injected at rest. 0.4 mg of regadenoson was infused per usual protocol. At peak infusion 34.5 mCi of technetium 99m sestamibi was injected stress images were obtained stress and rest images were reconstructed and compared in the short axis vertical long and horizontal long axis. Gated images were also obtained. Perfusion SPECT analysis: Review of the stress images demonstrated normal uptake of tracer noted in all areas of the myocardium. The resting images similarly demonstrate normal uptake of tracer noted in all areas of the myocardium. No areas of reversibility are noted suggest ischemia and no previous infarct is noted. Gated SPECT analysis: The gated ejection fraction is 69%. Conclusion: Normal pharmacologic myocardial perfusion stress test. Preserved ejection fraction.
== END | disposition home or self-care (01) ==
LOC: CVS 06:57
PROVIDERS: PCP Family Medicine; Visit Provider Nurse Practitioner Family
DX: R07.9 Chest pain, unspecified (principal); I25.10 Atherosclerotic heart disease of native coronary artery without angina pectoris; I10 Essential (primary) hypertension; E78.5 Hyperlipidemia, unspecified; I65.23 Occlusion and stenosis of bilateral carotid arteries; R55 Syncope and collapse; I95.9 Hypotension, unspecified; Z95.5 Presence of coronary angioplasty implant and graft; Z98.890 Other specified postprocedural states
CPT/HCPCS: 78452; 93017; A9500; A4216; J2785

== ENCOUNTER → 2022-02-04 | Outpatient (CLI) | payer MEDICARE, SELFPAY ==
[2020-09-11 08:28] VITALS: BMI 29.2
--- NOTE | 2022-02-04 09:20 | RAD_ITS ---
STUDY: X-RAY CHEST REASON FOR EXAM: Male, 67 years old. pre-operative- [facility] TECHNIQUE: PA and lateral views of the chest. COMPARISON: 08/16/2021 FINDINGS: Insert teletypesetter monitor. The lungs are clear and expanded. There is no demonstrated pleural abnormality. Normal size heart. Normal mediastinum and bonnie. Normal visualized pulmonary arteries. Normal visualized aortic arch and descending thoracic aorta. Normal visualized thoracic spine. Normal visualized ribs, clavicles, and shoulders. There is no demonstrated abnormality of the visualized soft tissue structures of the upper abdomen. RAD/Chest PA and Lateral IMPRESSION: Normal x-ray examination of the chest. Electronically Signed: Brian Ramos MD at 17:01 EDT ,
[2022-02-04 10:00] LABS: Absolute Lymphocyte Count 1.27 X10^3/uL (0.83-4.51); Absolute Neutrophil Count 2.9 X10^3/uL (2.0-7.7); Basophil# 0.04 X10^3/uL; Basophil% 0.8 % (0-1); Eosinophil# 0.21 X10^3/uL; Eosinophils% 4.4 % (0-5); Hematocrit 36.1 % (40-54); Hemoglobin 11.6 g/dL (13.0-16.5); Lymphocyte # 1.27 X10^3/ul (0.83-4.51); Lymphocyte % 26.5 % (19-41); Mean Corp Hgb Conc 32.1 g/dL (32-36); Mean Corpuscular Hgb 29.1 pg (27.0-32.0); Mean Corpuscular Volume 90.7 fL (80-94); Mean Platelet Vol. 9.5 fl (6.2-12.0); Monocyte# 0.34 X10^3/uL; Monocyte% 7.1 % (0-10); NRBC Flagged by Analyzer 0 % (0-5); Neutrophil # 2.92 X10^3/uL (2.7-7.7); Neutrophil % 60.8 % (47-70); Platelet Count 186 K/mm3 (150-450); RBC Distribution Width CV 12.1 % (11.6-14.6); RBC Distribution Width SD 40.2 fl (35.1-43.9); Red Blood Count 3.98 M/mm3 (4.6-6.2); White Blood Count 4.8 K/mm3 (4.4-11.0)
[2022-02-04 10:22] LABS: Anion Gap 3 (5-15); BUN 19 mg/dL (7-18); BUN/Creat Ratio 21.5 RATIO (10-20); Calcium,Total 8.6 mg/dL (8.5-10.1); Chloride 105 mmol/L (98-107); Creatinine, Serum 0.88 mg/dL (0.70-1.30); EST Glomerular Filtration Rate 91 mL/min (>60); Est Glom Filt Rate - Afr Amer 110 mL/min (>60); Glucose 198 mg/dL (74-106); Potassium 4.2 mmol/L (3.5-5.1); Sodium Level 136 mmol/L (136-145)
== END | disposition home or self-care (01) ==
LOC: LAB 09:10
PROVIDERS: PCP Family Medicine; Referring Provider Nurse Practitioner Family; Visit Provider Nurse Practitioner Family
DX: Z01.818 Encounter for other preprocedural examination (principal); R07.9 Chest pain, unspecified; I25.10 Atherosclerotic heart disease of native coronary artery without angina pectoris; I10 Essential (primary) hypertension; E78.5 Hyperlipidemia, unspecified; Z95.5 Presence of coronary angioplasty implant and graft
CPT/HCPCS: 36415; 71046; 80048; 85025

== ENCOUNTER 2022-02-11 08:30 | Day surgery (SDC) | payer MEDICARE, SELFPAY ==
[2020-09-11 08:28] VITALS: BMI 29.2
[2022-02-08 08:06] VITALS: BMI 24.8
--- NOTE | 2022-02-11 08:27 | HP.PCM_ITS ---
History and Physical Date of Admission: 02/11/22 Michael Boss is here today for a diagnostic heart cath. He does have a history of coronary artery disease With stenting to his mid LAD and ramus in 2016, ostial left circumflex in May 2020 and Jul 2021, proximal circumflex in October 2020, and mid RCA in April 2021. He also has a history of hypertension, hyperlipidemia, syncope and carotid artery stenosis. He underwent loop recorder placement on 12/13/2021 for syncope evaluation. Patient underwent stress test on 01/18/2022 that was negative for ischemia. On account of coronary artery disease history and ongoing exertional, sharp chest discomfort, it is recommend he proceed with heart catheterization to assess further. He states sharp chest discomfort that occurs every other day. This is located midsternal and occurs with activity. This lasts for 10 minutes and improves with rest. He denies associated diaphoresis or nausea. He rates this a 3 out of 10. He denies bilateral lower extremity edema. He acknowledges shortness of breath with activity. He denies shortness of breath at rest, orthopnea, cough PND. He acknowledges lightheaded and dizziness. He denies near-syncope or syncope. He acknowledges fatigue. [facility] Medical History Atherosclerotic heart disease of [place] coronary artery without angina pectoris Bilateral carotid artery stenosis BPH (benign prostatic hyperplasia) Complication of artery following procedure, not elsewhere classified COVID-19 DDD (degenerative disc disease) Elevated LFTs Essential (primary) hypertension Hyperlipidemia Injury of radial artery Obesity Sciatica Syncope Type 2 diabetes mellitus Unstable angina Surgical History History of cataract surgery History of coronary artery stent placement (07/23/21) History of hand surgery History of left heart catheterization (02/01/19) History of loop recorder (12/13/21) Hx of appendectomy Family History Sister CAD (coronary artery disease) CVA (cerebral vascular accident) Diabetes Myocardial infarction Hx of CABG Mother Cancer Lung CA Social History Smoking Status: Never smoker alcohol intake: never substance use type: does not use caffeine: Yes Type: coffee what type of physical activity do you participate in: none seatbelt use: always do you feel safe at home: Yes ROS Const Const: Positive for fatigue; Negative for weakness, headache(s) or frequent falls Eyes Eyes: Negative for blurry vision or double vision ENT ENT: Positive for dizziness and balance problems; Negative for headache(s) or Nosebleed/epistaxis Cardio Chest Pain: Yes Frequency: other (every other day) Character: sharp Onset: other (activity) Location: mid sternal Duration: minutes (10) Relieving: rest Palpitations: No Edema: None Muscle aches with walking: None Resp Respiratory: Positive for SOB with activity; Negative for SOB at rest, SOB orthopnea\SOB lying down, Cough or paroxysmal nocturnal dyspnea GI GI: Negative nausea, vomiting or black,tarry stools : Negative for hematuria Musc Musc: Positive for balance problems; Negative for muscle aches/ myalgia or joint pain Neuro Neuro: Positive for dizziness and lightheadedness; Negative for near syncope, syncope, frequent falls, headache(s), weakness, blurry vision or double vision Endo Endo: Positive for fatigue Cardiology Exam Const Appearance: cooperative, healthy appearing, comfortable and no acute distress Nutritional Appearance: average body habitus and well nourished Orientation: alert, awake and oriented x3 Head Head: normal to inspection Ears: hearing grossly normal bilaterally Nose: external nose normal Face and Sinus: face symmetric Mouth: oral mucosae normal Eyes General: appearance normal, both eyes and all related structures Eyelids: eyelids normal EOM: EOM intact bilaterally Neck Neck: normal visual inspection and no JVD Carotids: normal carotid upstroke Chest Chest inspection: normal inspection of the chest, symmetric chest movement and normal respiratory effort; Negative cough Auscultation: Bilateral: Clear to Auscultation Cardio Rate: regular rate Rhythm: regular rhythm Heart sounds: S1 normal and S2 normal; Negative rub, gallop or murmur GI GI: normal to inspection Neuro General: patient alert, patient awake, patient oriented x3 and CN's II-XI intact bilaterally Skin Skin: no rashes or lesions noted Extremities Pulses: Normal: Right Posterior Tibial Pulse, Left Posterior Tibial Pulse, Right Radial Pulse and Left Radial Pulse Lower Extremity Edema: None: Bilateral Psych Psychological: normal affect Supplemental Info Supplemental Information Echocardiogram 07/21/2021: Interpretation Summary Normal size and thickness. Left ventricular systolic function is normal. Stage 1 diastolic dysfunction. Mild focal aortic valve calcification. Echocardiogram from 10/02/2020: Interpretation Summary Normal LV size. Left ventricular systolic function is normal. The estimated ejection fraction is 65 %. Stage 1 diastolic dysfunction. Normal left atrium. Heart catheterization from 07/30/2021: CONCLUSIONS Severe coronary artery disease with previous stenting of the left anterior descending artery which is patent, ramus intermedius which is patent, Previously placed stent in the left circumflex artery with high-grade 95% in- stent stenosis. Diffuse mild right coronary artery disease RECOMMENDATIONS Referred for immediate PCI CORONARY ANGIOGRAPHY DOMINANCE: Right Dominant LEFT HEART ASSESSMENT Left Ventricular Ejection Fraction: by Echo 60 % Normal LV wall motion Normal Left Ventricular systolic function LEFT MAIN: Mild calcification, No significant disease noted LEFT ANTERIOR DESCENDING ARTERY: MID LAD: Previously placed stent is patent CIRCUMFLEX ARTERY: PROX CIRC: Previously placed stent has an instent 95 % restenosis OM 2: Proximal - 70 % Stenosis RAMUS: Previously placed stent is patent RIGHT CORONARY ARTERY: Large dominant vessel with diffuse stenosis of 30 to 40% with calcification Cardiac intervention 07/23/2021: Procedure performed; 1. Successful PCI of proximal left circumflex in-stent restenosis of 90% % with predilatation, followed by placement of drug-eluting stent 2.5 x 9 NC Emerge MR balloon 2.5 x 9 mm MR drug-eluting stent/RODDY/Orsiro Followed by postdilatation using 3 x 8 mm emerge NC balloon. With reduction of stenosis from 80% to 0%. Pre-PCI SHARRI III, post PCI maintain SHARRI-3. 2. Placement of TR band to close the right radial artery arteriotomy site. Cardiac cath 04/2021: High-grade stenosis noted in the mid right coronary artery with moderate disease noted in the distal right coronary artery. The previously placed stent in the left anterior descending artery is patent, the previously placed stent in the first diagonal vessel which was probably called and ramus intermedius is patent in the [place] circumflex artery with a previously placed stent has moderate in- stent stenosis. RECOMMENDATIONS Referred for immediate PCI CORONARY ANGIOGRAPHY DOMINANCE: Right Dominant LEFT HEART ASSESSMENT Left Ventricular Ejection Fraction: by LV Gram 60 % Normal LV wall motion Normal Left Ventricular systolic function LEFT MAIN: Angiographically normal LEFT ANTERIOR DESCENDING ARTERY: MID LAD: Previously placed stent is patent DIAGONAL 1: Proximal - Previously placed stent is patent CIRCUMFLEX ARTERY: PROX CIRC: Previously placed stent has an instent 60 % restenosis RIGHT CORONARY ARTERY: MID RCA: 80 % Stenosis DISTAL RCA: At the trifurcation is noted to have a 60% stenosis PCI 04/21: Successful PCI with RODDY to mRCA and PTCA alone to dRCA INTERVENTION INFORMATION LESION SITE: RCA (Mid) Lesion Complexity: High/C, chronic total occlusion: No, lesion at bifurcation: Yes, thrombus present: No, lesion length: 8 mm, culprit lesion: Yes, Previously treated lesion: No Pre Stenosis: 70 % Pre intervention SHARRI flow: 3 PROCEDURE: Balloon Angioplasty Post Stenosis: 40 % Post intervention SHARRI flow: 3 Lesion Devices: Zavaleta .014 [employer] [place] Straight 190cm Cardinal 6 Fr AR2 100cm Guide Catheter Terumo .014 Runthrough Extra Floppy 180cm straight Nicola Sci EMERGE MR 2.25x12 BALLOON LESION SITE: RCA (Mid) Lesion Complexity: High/C, chronic total occlusion: No, lesion at bifurcation: No, thrombus present: No, lesion length: 8 mm, culprit lesion: Yes, Previously treated lesion: No Pre Stenosis: 80 % Pre intervention SHARRI flow: 3 PROCEDURE: Drug Eluting Stent with pre and post dilatation Post Stenosis: 0 % Post intervention SHARRI flow: 3 Lesion Devices: Zavaleta .014 [employer] [place] Straight 190cm Cardinal 6 Fr AR2 100cm Guide Catheter Terumo .014 Runthrough Extra Floppy 180cm straight Nicola Sci EMERGE MR 2.25x12 BALLOON Biotronik Orsiro MR RODDY 3.0x9 Nicola Sci EMERGE MR 3.00x08 BALLOON [employer]ola Sci NC EMERGE MR 3.00x08 BALLOON PCI Report: Procedure performed; 1. Successful PCI of proximal left circumflex in-stent restenosis of 90% % with predilatation, followed by placement of drug-eluting stent 2.5 x 9 NC Emerge MR balloon 2.5 x 9 mm MR drug-eluting stent/RODDY/Orsiro Followed by postdilatation using 3 x 8 mm emerge NC balloon. With reduction of stenosis from 80% to 0%. Pre-PCI SHARRI III, post PCI maintain SHARRI-3. Assessment & Plan Assessment/Plan (1) Chest pain: (2) Atherosclerotic heart disease of [place] coronary artery without angina pectoris: QUALIFIERS: [place] vs. transplanted heart: [place] heart Qualified Code(s): I25.10 - Atherosclerotic heart disease of [place] coronary artery without angina pectoris (3) History of coronary artery stent placement: (4) Essential (primary) hypertension: (5) Hyperlipidemia: QUALIFIERS: Hyperlipidemia type: unspecified Qualified Code(s): E78.5 - Hyperlipidemia, unspecified (6) Bilateral carotid artery stenosis: PLAN: Pt is agreeable to proceed with a heart cath. Plan of care will be based on findings. He will follow up in the office accordingly.
--- NOTE | 2022-02-11 11:01 | CL.D_ITS ---
Patient Name: PRESTON BATES Study Date: 02/11/2022 Performing: Jd Nickerson MD Ht: 70.07 inches 178 cm : 1955 Wt: 171.96 lbs 78 kg Age: 67 Gender: male BSA: 1.96 PROCEDURE(S) PERFORMED [id number])[facility] CLINICAL PROFILE AND INDICATIONS Indications: New Onset Angina <= 2 months Heart Failure: None Stress/Imaging Date: 01/20/2022tress Test with SPECT MPI: Negative CAD Presentations: Symptom unlikely to be ischemic. CONCLUSIONS Diffuse coronary artery disease with previously placed stents in the proximal LAD, the diagonal vesse l/ramus intermedius, the circumflex artery, and the right coronary artery are all noted to be patent. There is diffuse distal small vessel disease noted but no high-grade stenosis present. RECOMMENDATIONS Medical therapy Would recommend continued medical therapy. We will try patient on Ranexa 500 twice daily DESCRIPTION OF PROCEDURE The patient arrived to the procedure lab. The risks and benefits of the procedure as well as a full d escription of our services here and current unavailability of surgical backup were fully explained to the patient and/or their significant other prior to the catheterization. The Timeout was completed, verifying the correct patient and procedure. The patient's procedural site was prepped and draped in the usual fashion. Local anesthetic was given subcutaneously to right radial region with Lidocaine 2% . Using a modified Seldinger technique, arterial access was obtained via the right radial artery, a 6 Fr sheath was inserted. Left Coronary Artery selective angiography was performed in multiple views u sing a 5 Fr. 4.0 Vowinckel catheter. Right Coronary Artery selective angiography was then performed in mu ltiple views using a 5 Fr. 4.0 Vowinckel catheter.The arterial sheath was pulled and a TR Band was applie d for hemostasis. 10cc air inserted. CORONARY ANGIOGRAPHY DOMINANCE: Right Dominant LEFT HEART ASSESSMENT Left Ventricular Ejection Fraction: by Echo 55 % Normal LV wall motion Normal Left Ventricular systolic function LEFT MAIN: Angiographically normal LEFT ANTERIOR DESCENDING ARTERY: PROX LAD: Previously placed stent is patent MID LAD: Moderate luminal irregularities up to 50% DIAGONAL 1: Proximal - Previously placed stent is patent CIRCUMFLEX ARTERY: PROX CIRC: Previously placed stent has an instent 30 % restenosis DISTAL CIRC: Mild luminal irregularities less than 30% RIGHT CORONARY ARTERY: Diffusely diseased up to 40 % MID RCA: Previously placed stent is patent COMPLICATIONS No Complications PROCEDURE MEDICATIONS Fentanyl 50 mcg IV Versed 1 mg IV Oxygen: 2 L/min via nasal cannula Heparin given IA 02/11/2022 10:35:46 Verapamil 2.5mg, Ntg 100mcgs, 3000 units of Heparin given IA 02/11/2022 10:35:46 SUMMARY OF HEMODYNAMIC DATA Time AIR REST ECG 08:46:32 Art 130/57 (88) 10:29:10 AO 82/43 (60) SA 10:38:21 RM AIR REST 10:55:34 Signed By Jd Nickerson MD On 02/11/2022 11:01:13 AM Jd Nickerson MD
== END 2022-02-11 12:35 | disposition home or self-care (01) ==
LOC: CLSP 08:31
PROVIDERS: PCP Family Medicine; Referring Provider Internal Medicine Cardiovascular Disease; Visit Provider Internal Medicine Cardiovascular Disease
DX: I25.10 Atherosclerotic heart disease of native coronary artery without angina pectoris (principal); E11.9 Type 2 diabetes mellitus without complications; I10 Essential (primary) hypertension; E78.5 Hyperlipidemia, unspecified; I65.23 Occlusion and stenosis of bilateral carotid arteries; R06.02 Shortness of breath; Z95.5 Presence of coronary angioplasty implant and graft
CPT/HCPCS: 93454; 99152; 99153; J7030; Q9967; C1769; C1894

== ENCOUNTER 2022-03-22 13:48 | Emergency (ER) | payer MEDICARE, SELFPAY ==
[2020-09-11 08:28] VITALS: BMI 29.2
[2022-03-22 13:49] VITALS: BP 163/93; PULSE 88; RESP 18; TEMP 36.7; O2SAT 93; BMI 25.2
--- NOTE | 2022-03-22 14:11 | CT_ITS ---
STUDY: CT BRAIN WITHOUT CONTRAST REASON FOR EXAM: Male, 67 years old. Head injury RADIATION DOSAGE (If Supplied By Facility): CTDIvol = ( 47.06 ) mGy, DLP = ( 1886.53 ) mGycm TECHNIQUE: Transaxial CT imaging of the brain was performed without administration of intravenous contrast material. Individualized dose optimization techniques were used for this CT. COMPARISON: Comparison is made with prior study dated 11/02/2021. FINDINGS: Normal soft tissue structures. Normal calvarium. Normal size ventricles and extra-axial spaces for the patient''s age. Normal white matter tracts of the cerebral hemispheres. There are small punctate calcifications of the basal ganglia which are seen in the aging brain as a normal variant. Normal brainstem. Normal cerebellum. There is no intracranial hemorrhage. There are no findings of an acute ischemic infarction. Minimal mucosal thickening along the inferior lateral wall of the left maxillary sinus. CT/Brain/Head without Contrast IMPRESSION: No acute abnormality is seen. Electronically Signed: Robert Mandujano MD at 15:06 EDT ,
--- NOTE | 2022-03-22 14:13 | EDS_ITS ---
HPI <KARO Dennis - Last Filed: 03/22/22 17:58> History of Present Illness Chief Complaint: Fall Narrative Narrative: 67-year-old male with history of coronary artery disease with stent placement, hypertension hyperlipidemia, intermittent syncope for multiple months who is currently being seen by a neurologist presents the emergency department for full body shaking. Patient states that he had a fall 6 days ago, striking the back of his head after syncopal episode which she has been having. He did not receive medical treatment after this incident, patient states that today roughly around noon, he developed shaking which was affecting his walking. Patient while sitting in the room states that he cannot stop shaking his head. He denies any headache, denies any weakness to any other extremity. Denies any fevers chills nausea or vomiting. <Dr. Kamla Kwon DO - Last Filed: 03/25/22 15:35> Narrative Narrative: 67-year-old male with history of coronary artery disease with stent placement, hypertension hyperlipidemia, intermittent syncope for multiple months who is currently being seen by a neurologist presents the emergency department for full body shaking. Patient states that he had a fall 6 days ago, striking the back of his head after syncopal episode which he has been having. He did not receive medical treatment after this incident, patient states that today roughly around noon, he developed shaking which was affecting his walking. Patient while sitting in the room states that he cannot stop shaking his head. He denies any headache, denies any weakness to any other extremity. Denies any fevers chills nausea or vomiting. PFSH <KARO Dennis - Last Filed: 03/22/22 17:58> [facility] Medical History (Updated 03/22/22 @ 17:57 by KARO Dennis) Atherosclerotic heart disease of [place] coronary artery without angina pectoris Bilateral carotid artery stenosis BPH (benign prostatic hyperplasia) Complication of artery following procedure, not elsewhere classified COVID-19 DDD (degenerative disc disease) Elevated LFTs Essential (primary) hypertension Hyperlipidemia Injury of radial artery Obesity Sciatica Syncope Type 2 diabetes mellitus Unstable angina Home Medications aspirin 81 mg tablet,delayed release 81 mg PO DAILY@0800 [facility] 09/13/13 [History Last Taken 02/11/22] omega 6-qsg-tot-fish oil 1,000 mg (120 mg-180 mg) capsule (Fish Oil) 1,000 mg PO QDAY supplement 01/06/18 [History Last Taken 12/29/21] metformin 500 mg tablet,extended release 24 hr 1,000 mg PO BID 07/25/20 [History Last Taken 02/10/22] gabapentin 800 mg tablet 800 mg PO BID 01/01/21 [History Last Taken 12/29/21] nitroglycerin 0.4 mg sublingual tablet 0.4 mg sublingual Q5M PRN Chest Pain #25 tabs 01/01/21 [Rx Last Taken Unknown] clopidogrel 75 mg tablet (Plavix) 75 mg PO DAILY #90 tabs 07/04/21 [Rx Last Taken 02/11/22] amitriptyline 150 mg tablet 150 mg PO QHS 10/16/21 [History Last Taken 12/28/21] atorvastatin 80 mg tablet 80 mg PO DAILY cholesterol 12/29/21 [History Last Taken 12/28/21] midodrine 10 mg tablet 10 mg PO TID 30 days #90 tabs 02/25/22 [Rx Last Taken Unknown] Allergy/AdvReac Type Severity Reaction Status Date / Time fludrocortisone Allergy Severe ANGIOEDEMA Verified 01/04/22 08:53 [From [facility]] perfumes Allergy unknown Uncoded 03/22/22 13:52 Family History Sister CAD (coronary artery disease) CVA (cerebral vascular accident) Diabetes Myocardial infarction Hx of CABG Mother Cancer Lung CA Surgical History (Updated 02/11/22 @ 10:54 by Griselda Bell) History of cataract surgery History of coronary artery stent placement (07/23/21) History of hand surgery History of left heart catheterization (02/11/22) History of loop recorder (12/13/21) Hx of appendectomy Social History Smoking Status: Never smoker alcohol intake: never substance use type: does not use caffeine: Yes Type: coffee what type of physical activity do you participate in: none seatbelt use: always do you feel safe at home: Yes ROS <KARO Dennis - Last Filed: 03/22/22 17:58> ROS ED ROS Narrative Constitutional: Negative for fever, chills, weight loss, weakness Eyes: Negative for vision loss, vision change, double vision ENT: Negative for any sore throat, ear pain, congestion Cardiovascular: Negative for any chest pain, tightness, palpitations Respiratory: Negative for any cough, sputum production, hemoptysis, dyspnea, dyspnea on exertion, orthopnea Gastrointestinal: Negative for any abdominal pain, nausea, vomiting, diarrhea, constipation, blood in stool, blood in vomit : Negative for any urinary frequency, dysuria, retention, blood in urine Muscle skeletal: Negative for any muscle joint pain, stiffness, myalgias, arthralgias, neck pain. Positive for back pain Neurological: Negative for any headache, syncope, numbness or tingling, dizziness. Positive for shaking to the head, upper and lower extremities. Skin: Negative for any rashes, lumps, itching, abrasions, lacerations Psychiatric: Negative for any depression, anxiety, stress, suicidal ideation, homicidal ideation Hematologic: Negative for any easy bruising, excessive bruising, easy bleeding Allergies: Negative for any eczema, hives, rash EXAM <KARO Dennis - Last Filed: 03/22/22 17:58> Physical Exam Const Vital Signs: 03/22/22 13:49 03/22/22 14:01 Temperature 98.1 F Temperature Source Temporal Pulse Rate 88 Respiratory Rate 18 Respiratory Effort Normal Blood Pressure 163/93 H Blood Pressure Mean 116 Pulse Ox 93 Oxygen Delivery Method Room Air <Dr. Kamla Kwon, DO - Last Filed: 03/25/22 15:35> Physical Exam Const Vital Signs: 03/22/22 13:49 03/22/22 14:01 Temperature 98.1 F Temperature Source Temporal Pulse Rate 88 Respiratory Rate 18 Respiratory Effort Normal Blood Pressure 163/93 H Blood Pressure Mean 116 Pulse Ox 93 Oxygen Delivery Method Room Air MDM <KARO Dennis - Last Filed: 03/22/22 17:58> [facility] Narrative Medical decision making narrative: Vital signs reviewed. Patient is alert and orient x4, patient while sitting in bed is only shaking his head, remainder of his body is not shaking or tremulous. HEET: Head normocephalic atraumatic, TMs clear bilaterally. Posterior pharynx is clear, moist mucous membranes. Nares clear bilaterally. Pupils are equal round reactive to light. Equal smile, patient has clear speech. Negative for any hematoma, septal hematoma. Negative wallace sign. Neck: Supple with no lymphadenopathy or tenderness. No signs of meningismus, negative jolt sign. Cardiac: Regular rate and rhythm no murmurs gallops or rubs, equal peripheral pulses bilaterally. Respiratory: Lungs clear to auscultation bilaterally. No chest tenderness. Abdomen: Soft, nontender, nondistended. No abdominal bruit or pulsatile masses. No hepatosplenomegaly Extremities: No peripheral edema, no signs of gross trauma or deformity. Active full range of motion of all extremities. Neuro: Cranial nerves II through XII intact, no focal neurological deficits. NIH stroke scale 0. No neurological focal deficit. Skin: Clean dry and intact with no rash, purpura, petechiae, vesicles or pustules. Backs/flank: No CVA tenderness, no midline spinal tenderness, no deformity. Psych: Normal mood and affect. No SI, HI or acute psychosis. Lab Data Labs: Laboratory Results - last 24 hr 03/22/22 03/22/22 03/22/22 14:25 14:25 16:30 WBC 6.9 RBC 4.04 L Hgb 11.6 L Hct 34.8 L MCV 86.1 MCH 28.7 MCHC 33.3 RDW Std Deviation 38.9 RDW Coeff of Megan 12.5 Plt Count 223 MPV 9.7 Immature Gran % (Auto) 0.600 Neut % (Auto) 65.3 Lymph % (Auto) 19.5 Bladen % (Auto) 8.7 Eos % (Auto) 5.0 Baso % (Auto) 0.9 Absolute Neuts (auto) 4.5 Absolute Lymphs (auto) 1.34 Nucleated RBC % 0 Sodium 134 L Potassium 4.7 Chloride 101 Carbon Dioxide 25.0 Anion Gap 8 BUN 18 Creatinine 1.14 Estim Creat Clear Calc 63.15 Est GFR (MDRD) Af Amer 82 Est GFR (MDRD) Non-Af 68 BUN/Creatinine Ratio 15.8 Glucose 163 H Calcium 8.7 Magnesium 1.8 Urine Color Yellow Urine Clarity Sl. Cloudy Urine pH 6.0 Ur Specific [place] 1.010 Urine Protein Negative Urine Glucose (UA) 50 H Urine Ketones Negative Urine Occult Blood Negative Urine Nitrite Negative Urine Bilirubin Negative Urine Urobilinogen Normal Ur Leukocyte Esterase 25 H Urine RBC 0 SEEN Urine WBC 0-5 SEEN Ur Squamous Epith Cells 5-10 SEEN Urine Bacteria 0 SEEN Urine Mucus 0 SEEN Radiography Diagnostic Testing: Clinical Impression(s) from Imaging Studies Brain CT 03/22/22 14:11 IMPRESSION: No acute abnormality is seen. Electronically Signed: Robert Mandujano MD at 15:06 EDT , Lumbar Spine X-Ray 03/22/22 14:55 IMPRESSION: Degenerative changes of the spine, as detailed above. Electronically Signed: Robert Mandujano MD at 15:15 EDT , Head/Neck CTA 03/22/22 16:01 IMPRESSION: No arterial occlusion or hemodynamically significant stenosis in the head and neck. Electronically Signed: Chau Sanabria MD at 17:24 EDT , Treatment and Re-Evaluation Narrative: Patient appears well, patient appears nontoxic, vital signs are stable. Patient presents to the emergency department with complaints of new onset of head tremors that started around noon today. Patient is neurologically and was unremarkable, patient NIH score of 0. Patient did receive laboratory values, CBC, chemistries were unremarkable. Patient's urinalysis was negative for any infection. Patient did receive a lumbar x-ray that was interpreted by ER physician as negative. This was secondary to a fall which occurred last week. Patient also receive a CT scan of the brain, this showed no acute abnormality seen. Patient still had some head tremors, I did reach out to the patient's neurologist. The patient's neurology partner did call back, he did recommend the patient receive a CTA scan of the patient's head and neck. If this is negative, the patient will be stable to follow-up outpatient. Patient did receive a CTA scan of the head and neck, this was a negative exam. On reassessment, the patient had no more shaking, states that it just stopped on its own. Patient feels much better like to be discharged. Patient's repeat neurological exam was unremarkable. Patient will follow up closely with his neurologist and continue to get worked up for the syncopal episodes. Patient stable for discharge <Dr. Kamla Kwon, DO - Last Filed: 03/25/22 15:35> [facility] Lab Data Labs: Laboratory Results - last 24 hr 03/22/22 03/22/22 03/22/22 14:25 14:25 16:30 WBC 6.9 RBC 4.04 L Hgb 11.6 L Hct 34.8 L MCV 86.1 MCH 28.7 MCHC 33.3 RDW Std Deviation 38.9 RDW Coeff of Megan 12.5 Plt Count 223 MPV 9.7 Immature Gran % (Auto) 0.600 Neut % (Auto) 65.3 Lymph % (Auto) 19.5 Bladen % (Auto) 8.7 Eos % (Auto) 5.0 Baso % (Auto) 0.9 Absolute Neuts (auto) 4.5 Absolute Lymphs (auto) 1.34 Nucleated RBC % 0 Sodium 134 L Potassium 4.7 Chloride 101 Carbon Dioxide 25.0 Anion Gap 8 BUN 18 Creatinine 1.14 Estim Creat Clear Calc 63.15 Est GFR (MDRD) Af Amer 82 Est GFR (MDRD) Non-Af 68 BUN/Creatinine Ratio 15.8 Glucose 163 H Calcium 8.7 Magnesium 1.8 Urine Color Yellow Urine Clarity Sl. Cloudy Urine pH 6.0 Ur Specific [place] 1.010 Urine Protein Negative Urine Glucose (UA) 50 H Urine Ketones Negative Urine Occult Blood Negative Urine Nitrite Negative Urine Bilirubin Negative Urine Urobilinogen Normal Ur Leukocyte Esterase 25 H Urine RBC 0 SEEN Urine WBC 0-5 SEEN Ur Squamous Epith Cells 5-10 SEEN Urine Bacteria 0 SEEN Urine Mucus 0 SEEN Radiography Diagnostic Testing: Clinical Impression(s) from Imaging Studies Brain CT 03/22/22 14:11 IMPRESSION: No acute abnormality is seen. Electronically Signed: Robert Mandujano MD at 15:06 EDT , Lumbar Spine X-Ray 03/22/22 14:55 IMPRESSION: Degenerative changes of the spine, as detailed above. Electronically Signed: Robert Mandujano MD at 15:15 EDT , Head/Neck CTA 03/22/22 16:01 IMPRESSION: No arterial occlusion or hemodynamically significant stenosis in the head and neck. Electronically Signed: Chau Sanabria MD at 17:24 EDT , Treatment and Re-Evaluation Narrative: Patient appears well, patient appears nontoxic, vital signs are stable. Patient presents to the emergency department with complaints of new onset of head tremors that started around noon today. Patient is neurologically and was unremarkable, patient NIH score of 0. Patient did receive laboratory values, CBC, chemistries were unremarkable. Patient's urinalysis was negative for any infection. Patient did receive a lumbar x-ray that was interpreted by ER physician as negative. This was secondary to a fall which occurred last week. Patient also receive a CT scan of the brain, this showed no acute abnormality seen. Patient still had some head tremors, I did reach out to the patient's neurologist. The patient's neurology partner did call back, he did recommend the patient receive a CTA scan of the patient's head and neck. If this is negative, the patient will be stable to follow-up outpatient. Patient did receive a CTA scan of the head and neck, this was a negative exam. On reassessment, the patient had no more shaking, states that it just stopped on its own. Patient feels much better like to be discharged. Patient's repeat neurological exam was unremarkable. Patient will follow up closely with his neurologist and continue to get worked up for the syncopal episodes. Patient stable for discharge I have personally performed a face to face assessment of the patient and have reviewed the BELLA Note. I performed a substantive portion of the visit including all aspects of the following. My miles findings include: History is patient is a 67-year-old male with history of syncope presenting for shaking. Patient's shaking is most pronounced to his head. This is not seizure-like activity. Patient had a fall 6 days ago he did hit the back of his head. He does currently follow with cardiology as well as neurology for his syncopal episodes however the exact cause has not been found. No other acute complaints at this time. Exam is Patient seen and picking of his head as well as a mild tremor to his hands. This is intermittent and waxes and wanes in intensity. Does seem to calm down with distraction. Has normocephalic atraumatic. Moist mucosal membranes. No hemotympanum. Neck is supple no JVD. Heart regular rate and rhythm. Lungs clear to auscultation bilaterally. Abdomen soft and nontender. Patient not have any focal neurologic deficits. Normal speech. Cranial nerves II through XII grossly intact. As reported above he does have some repetitive head shaking and a mild tremor to his hands. No lesions or rash noted. No pinpoint bony tenderness. Pelvis is stable. Normal tone throughout. Medical Decison Making Patient evaluated for sudden onset of tremor to his head and intermittently in his arms. Patient appears nontoxic no acute distress. No focal neurologic deficits. No meningeal signs. CT of the brain obtained given he did have a fall 6 days ago. Work-up including CBC, BMP and urinalysis largely unremarkable. CT the brain does not show any acute process. Case discussed with the on-call neurologist for [facility], Dr. Troy. He states that this presentation is quite atypical and he recommends a CTA of the head and neck. If this is negative he can be discharged for outpatient follow-up. This is performed and is negative. Patient's shaking/tremor resolved while in the emergency room without further intervention. Patient agreeable this plan of care. Is given return precautions. Other additions or changes: [None] Discharge Plan Triage Chief Complaint: Fall ED Midlevel Provider: Keenan Marcus ED Provider: Kamla Kwon Dx/Rx/DC Orders Clinical Impression: Syncope, Lumbar contusion, Occasional tremors Instructions: Causes of Syncope, ED Back Contusion Prescriptions: No Action omega 1-iau-jet-fish oil [Fish Oil] 1,000 mg (120 mg-180 mg) capsule 1,000 mg PO QDAY Label Comments: 1200 mg PO QDAY metformin 500 mg tablet extended release 24 hr 1,000 mg PO BID gabapentin 800 mg tablet 800 mg PO BID nitroglycerin 0.4 mg tablet, sublingual 0.4 mg SUBLINGUAL Q5M PRN (Reason: Chest Pain) Qty: 25 6RF Rx Instructions: take one tablet every 5-15 to not exceed 3 tablets aspirin 81 MG tablet 81 mg PO DAILY@0800 amitriptyline 150 mg tablet 150 mg PO QHS atorvastatin 80 mg tablet 80 mg PO DAILY clopidogrel [Plavix] 75 mg tablet 75 mg PO DAILY Qty: 90 3RF midodrine 10 mg tablet 10 mg PO TID 30 Days Qty: 90 11RF Rx Instructions: do not give last dose of day after 6PM or within 4 hrs of bedtime 02/27/22 Currently om Midodrine 10 mg TID. Michael instructed if BP goes above 140/90 should decrease to 5 mg TID Primary Care Provider: Nadir Abdalla Referrals: Nadir Abdalla MD [Primary Care Provider] - Activity Restrictions/Additional Instructions: Please keep your appointments with your neurologist, follow-up with your PCP. Print Language: Italian Disposition Disposition: Home, Self Care Discharge Date/Time: 03/22/22 18:47
[2022-03-22] MEDS: 0.9% Normal Saline 1,000 ML 1000 ML IV (14:31)
[2022-03-22 14:44] LABS: Absolute Lymphocyte Count 1.34 X10^3/uL (0.83-4.51); Absolute Neutrophil Count 4.5 X10^3/uL (2.0-7.7); Basophil# 0.06 X10^3/uL; Basophil% 0.9 % (0-1); Eosinophil# 0.34 X10^3/uL; Hematocrit 34.8 % (40-54); Hemoglobin 11.6 g/dL (13.0-16.5); Lymphocyte # 1.34 X10^3/ul (0.83-4.51); Lymphocyte % 19.5 % (19-41); Mean Corp Hgb Conc 33.3 g/dL (32-36); Mean Corpuscular Hgb 28.7 pg (27.0-32.0); Mean Corpuscular Volume 86.1 fL (80-94); Mean Platelet Vol. 9.7 fl (6.2-12.0); Monocyte% 8.7 % (0-10); NRBC Flagged by Analyzer 0 % (0-5); Neutrophil # 4.48 X10^3/uL (2.7-7.7); Neutrophil % 65.3 % (47-70); Platelet Count 223 K/mm3 (150-450); RBC Distribution Width CV 12.5 % (11.6-14.6); RBC Distribution Width SD 38.9 fl (35.1-43.9); Red Blood Count 4.04 M/mm3 (4.6-6.2); White Blood Count 6.9 K/mm3 (4.4-11.0)
--- NOTE | 2022-03-22 14:55 | RAD_ITS ---
STUDY: X-RAY - LUMBAR SPINE REASON FOR EXAM: Male, 67 years old. Pain following a fall. TECHNIQUE: 5 view(s) of the lumbar spine were obtained including oblique views. COMPARISON: None FINDINGS: Normal lumbar lordosis. There is a dextroscoliosis of the lumbar spine. There is a normal alignment of the vertebrae. There is multilevel endplate spondylosis of the lumbar vertebrae. There is multi-level degenerative disc disease with multi-level disc space narrowing. There is atherosclerotic calcification of the abdominal aorta without a demonstrated aneurysm. RAD/L/S Spine Min 4 Views IMPRESSION: Degenerative changes of the spine, as detailed above. Electronically Signed: Robert Mandujano MD at 15:15 EDT ,
[2022-03-22 15:06] LABS: Anion Gap 8 (5-15); BUN 18 mg/dL (7-18); BUN/Creat Ratio 15.8 RATIO (10-20); Calcium,Total 8.7 mg/dL (8.5-10.1); Chloride 101 mmol/L (98-107); Creatinine, Serum 1.14 mg/dL (0.70-1.30); EST Glomerular Filtration Rate 68 mL/min (>60); Est Glom Filt Rate - Afr Amer 82 mL/min (>60); Estimated Creatinine Clearance 63.15 ml/min; Glucose 163 mg/dL (74-106); Magnesium 1.8 mg/dL (1.6-2.6); Potassium 4.7 mmol/L (3.5-5.1); Sodium Level 134 mmol/L (136-145)
--- NOTE | 2022-03-22 15:29 | NURSING ---
[place] NEUROLOGIST [employer], [place] [facility]IM [phone]
--- NOTE | 2022-03-22 16:01 | CT_ITS ---
STUDY: CTA HEAD AND NECK WITH CONTRAST REASON FOR EXAM: Male, 67 years old. syncope RADIATION DOSAGE (If Supplied By Facility): CTDIvol = ( 23.46 ) mGy, DLP = ( 711.74 ) mGycm TECHNIQUE: CT angiography was performed with a multi-detector CT scanner. Data acquisition was obtained from the skull base through the vertex following intravenous administration of IV 100mL [id number]-[id number]. MIP images were reconstructed from the axial data set. Post-processing of the angiographic images was performed, with multiplanar reformation and 3D reconstruction. Individualized dose optimization techniques were used for this CT. COMPARISON: No relevant priors. FINDINGS: There is no arterial occlusion, hemodynamically significant stenosis, aneurysm, or dissection in the head and neck. The bilateral ACAs, MCAs, and registered nurse ambulatory are intact. 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 Atherosclerosis of the cavernous and supraclinoid segments of the bilateral intracranial ICAs is noted. Moderate size mixed plaque is seen at the left carotid bulb causing up to 50% luminal stenosis. There is small to moderate-sized mixed plaque at the right carotid bulb causing less than 50%. Mild atherosclerosis of the left vertebral artery is noted. The left vertebral artery is slightly dominant. There is no definite thrombosis in the major dural sinuses and the neck pains. The bilateral globes are intact A small polyp versus retention cyst is seen in the left likely sinus. Other paranasal sinuses and mastoid air cells are clear The bilateral parotid and submandibular glands are intact. The airway is patent. Epiglottis is of normal contour and size. There is no cervical adenopathy. The thyroid gland is homogeneous Upper lungs are clear. Multilevel cervical spondylosis is seen. CT/CTA Head AND Neck W/ Contrast IMPRESSION: No arterial occlusion or hemodynamically significant stenosis in the head and neck. Electronically Signed: Chau Sanabria MD at 17:24 EDT ,
[2022-03-22 16:45] LABS: Bacteria 0 SEEN /hpf (None Seen); Mucous, Urine 0 SEEN /hpf (<or=2+); Red Blood Cells-Urine 0 SEEN /hpf (0-5)
[2022-03-22 16:51] LABS: Color, Urine Yellow (Yellow); Glucose, Dipstick 50 mg/dl (Normal); Ketone-Dipstick Negative (Negative); Leukocyte Esterase-Dipstick 25 /ul (Negative); Nitrite-Dipstick Negative (Negative); Occult Blood-Urine Negative /ul (Negative); Protein-Dipstick Negative (Negative); Urine Bilirubin Dipstick Negative (Negative); Urine Clarity Sl. Cloudy (Clear); Urine Urobilinogen Normal (Normal)
[2022-03-22 17:11] LABS: Squamous Epithelial Cells - UA 5-10 SEEN /hpf (0-5); White Blood Cells 0-5 SEEN /hpf (0-5)
[2022-03-22 18:46] VITALS: BP 176/95; PULSE 74; RESP 16; O2SAT 99
== END 2022-03-22 18:47 | disposition home or self-care (01) ==
PROVIDERS: Nurse Practitioner; Emergency Provider Emergency Medicine; PCP Family Medicine; Visit Provider Emergency Medicine
DX: R55 Syncope and collapse (principal); I25.110 Atherosclerotic heart disease of native coronary artery with unstable angina pectoris; E11.9 Type 2 diabetes mellitus without complications; R25.1 Tremor, unspecified; S30.0XXA Contusion of lower back and pelvis, initial encounter; W19.XXXA Unspecified fall, initial encounter; I10 Essential (primary) hypertension; E78.5 Hyperlipidemia, unspecified; Z95.5 Presence of coronary angioplasty implant and graft; E66.9 Obesity, unspecified; Z79.82 Long term (current) use of aspirin; Z79.84 Long term (current) use of oral hypoglycemic drugs
CPT/HCPCS: 70450; 70496; 70498; 72110; 80048; 81001; 83735; 85025; 96360; 96361; 99283; J7030; Q9967; A4216

== ENCOUNTER → 2022-04-17 | Outpatient (CLI) | payer MEDICARE, SELFPAY ==
[2020-09-11 08:28] VITALS: BMI 29.2
[2022-04-17 08:25] LABS: AST(SGOT) 14 U/L (15-37); Alanine Aminotransfer ALT/SGPT 24 U/L (16-61); Albumin, Serum 3.5 g/dL (3.2-5.0); Alkaline Phosphatase 125 U/L (45-117); Cholesterol 103 mg/dL (200); Globulin 3.7 g/dL (2.2-4.2); High Density Lipoprotein 38 mg/dL; Protein, Total 7.2 g/dL (6.4-8.2); Triglycerides 128 mg/dL; Very Low Density Lipoprotein 26 mg/dL (5-40)
== END | disposition home or self-care (01) ==
LOC: LAB 05:29
PROVIDERS: PCP Family Medicine; Referring Provider Nurse Practitioner Family; Visit Provider Nurse Practitioner Family
DX: E78.00 Pure hypercholesterolemia, unspecified (principal)
CPT/HCPCS: 36415; 80061; 80076

== ENCOUNTER → 2022-04-24 | Outpatient (CLI) | payer MEDICARE, SELFPAY ==
[2020-09-11 08:28] VITALS: BMI 29.2
[2022-04-24 07:46] VITALS: BP 134/72; PULSE 83; RESP 16; TEMP 36; O2SAT 99; BMI 23.9
[2022-04-24] MEDS: Cosyntropin 0.25 MG Vial IM (07:59)
== END | disposition home or self-care (01) ==
LOC: MEDOUTP 07:31
PROVIDERS: PCP Family Medicine; Referring Provider Internal Medicine Endocrinology, Diabetes & Metabolism; Visit Provider Internal Medicine Endocrinology, Diabetes & Metabolism
DX: R55 Syncope and collapse (principal)
CPT/HCPCS: 36415; 82533; 96372; J0834

== ENCOUNTER 2022-05-28 16:01 | Emergency (ER) | payer MEDICARE, SELFPAY ==
[2020-09-11 08:28] VITALS: BMI 29.2
[2022-05-28 16:02] VITALS: BP 155/84; PULSE 103; RESP 16; TEMP 36.8; O2SAT 97; BMI 23.1
[2022-05-28 16:31] VITALS: BP 122/93; PULSE 88; RESP 19; O2SAT 95
--- NOTE | 2022-05-28 16:41 | ED.VIS.CHEST ---
HPI History of Present Illness Chief Complaint: Chest Pain Informant: patient Onset/Context/Timing Onset: Today Activity at onset: sudden and light activity Timing: Intermittent and Lasts (Approximately 45 minutes) Quality: Positive for Sharp Location: Left Chest Worsened By: - (Walking) Relieved By: Nothing Associated Symptoms: Positive for Diaphoresis and Palpitations; Negative for Nausea, Vomiting, Dyspnea, Cough, Fever or Acid Reflux Narrative Narrative: Patient presents with chest pain that began today. Patient states it came on while he was in the shower. Patient states it lasted approximately 45 minutes. Patient states it is over the left upper chest. Patient describes it as sharp. Patient states it gets worse whenever he walks. Patient states nothing makes it better. Patient admits to some lightheadedness and dizziness. Patient also admits to some episodes of heart racing and palpitations. Patient states he did have some diaphoresis with the pain. Patient states that he also fell 5 days ago and hit the back of his head. Patient states the pain is mostly in the right occipital area. Patient also complains of pain on his left foot. Patient states he dropped a drill on it today. Patient denies any paresthesias or weakness. CVD Risk Factors: Positive for Hypertension, Diabetes, Hypercholesterolemia and Family History 1' </=55; Negative for Smoking PE Risk Factors: Negative for Recent Travel/Surgery, Prior DVT or PE or Cancer [facility] Medical History Atherosclerotic heart disease of [place] coronary artery without angina pectoris Bilateral carotid artery stenosis BPH (benign prostatic hyperplasia) COVID-19 (06/2021) DDD (degenerative disc disease) Elevated LFTs Essential (primary) hypertension Hyperlipidemia Sciatica Syncope (10/2021) Tremor of both hands Type 2 diabetes mellitus Home Medications aspirin 81 mg tablet,delayed release 81 mg PO DAILY@0800 [facility] 09/13/13 [History Last Taken 02/11/22] omega 5-rys-mid-fish oil 1,000 mg (120 mg-180 mg) capsule (Fish Oil) 1,000 mg PO QDAY supplement 01/06/18 [History Last Taken 12/29/21] metformin 500 mg tablet,extended release 24 hr 1,000 mg PO BID 07/25/20 [History Last Taken 02/10/22] gabapentin 800 mg tablet 800 mg PO BID 01/01/21 [History Last Taken 12/29/21] nitroglycerin 0.4 mg sublingual tablet 0.4 mg sublingual Q5M PRN Chest Pain #25 tabs 01/01/21 [Rx Last Taken Unknown] atorvastatin 80 mg tablet 80 mg PO DAILY cholesterol 12/29/21 [History Last Taken 12/28/21] clopidogrel 75 mg tablet (Plavix) 75 mg PO DAILY #90 tabs 04/02/22 [Rx Last Taken Unknown] midodrine 10 mg tablet 10 mg PO TID Pt out of town, family emergency, forgot pills #21 tabs 04/02/22 [Rx Last Taken Unknown] prednisone 20 mg tablet 20 mg PO DAILY 04/19/22 [History Last Taken Unknown] ranolazine 500 mg tablet,extended release,12 hr (Ranexa) 500 mg PO BID 05/17/22 [History Last Taken Unknown] amantadine HCl 100 mg tablet 100 mg PO BID 05/23/22 [History Last Taken Unknown] lorazepam 0.5 mg tablet 0.5 mg PO BID 05/23/22 [History Last Taken Unknown] sertraline 50 mg tablet 50 mg PO DAILY 05/23/22 [History Last Taken Unknown] pioglitazone 15 mg tablet (Actos) 15 mg PO DAILY 05/24/22 [History Last Taken Unknown] Allergy/AdvReac Type Severity Reaction Status Date / Time fludrocortisone Allergy Severe ANGIOEDEMA Verified 05/28/22 16:02 [From [facility]] perfumes Allergy unknown Uncoded 05/28/22 16:02 Family History Sister CAD (coronary artery disease) CVA (cerebral vascular accident) Diabetes Myocardial infarction Hx of CABG Mother Cancer Lung CA Surgical History History of cataract surgery History of coronary artery stent placement (07/23/21) History of hand surgery History of left heart catheterization (02/11/22) History of loop recorder (12/13/21) Hx of appendectomy Social History Smoking Status: Never smoker alcohol intake: never substance use type: does not use caffeine: Yes Type: coffee what type of physical activity do you participate in: none seatbelt use: always do you feel safe at home: Yes ROS ROS ED Constitutional Constitutional ED: Reports sweats; Denies chills or fever(s) Eyes Eyes: Denies blurry vision or change in vision ENT ENT ED: Denies rhinorrhea or sore throat Cardiovascular Cardiovascular: Reports chest pain and palpitations Respiratory/Chest Respiratory/Chest: Denies cough or dyspnea Gastrointestinal Gastrointestinal: Denies abdominal pain, nausea or vomiting Genitourinary Genitourinary ED: Denies dysuria or hematuria Musculoskeletal Musculoskeletal: Reports back pain and neck pain Integumentary Denies abscess or rash Neurologic Neurologic: Denies headache(s) or weakness Allergic/Immunologic Allergic/Immunologic ED: Denies mouth swelling or urticaria EXAM Physical Exam Const Vital Signs: 05/28/22 16:02 05/28/22 16:31 05/28/22 16:32 Temperature 98.2 F Temperature Source Temporal Pulse Rate 103 H 88 Respiratory Rate 16 19 H Respiratory Effort Normal Non-Labored Blood Pressure 155/84 H 122/93 H Blood Pressure Mean 107 102 Pulse Ox 97 95 Oxygen Delivery Method Room Air Room Air 05/28/22 16:56 05/28/22 18:38 05/28/22 20:49 Temperature Temperature Source Pulse Rate 69 Respiratory Rate 19 H 16 Respiratory Effort Blood Pressure 155/86 H 179/88 H Blood Pressure Mean 109 118 Pulse Ox 98 Oxygen Delivery Method Room Air Room Air Positive well nourished, well developed and obese General Appearance ED: well developed and NAD Nutritional Appearance: obese HEENT Reports moist mucous membranes normocephalic and atraumatic Eyes EOMs intact bilaterally Neck supple and no JVD Chest Wall palpation of chest normal Resp normal respiratory effort and clear to auscultation bilaterally Effort and Inspection: Negative for respiratory distress Cardio regular rate, regular rhythm and no murmurs GI normal to inspection, nondistended, normoactive bowel sounds, soft to palpation, non-tender and non-distended Extremity normal to inspection General Extremety ED: Negative for edema or tenderness General Extremity: Negative for edema Neuro oriented x3, CN's II-XII intact bilaterally and no sensory deficits noted Sensorium / Orientation: awake and alert Motor Exam: strength 5/5 throughout Psych mental status grossly normal Heart Score History: Slightly/Non-Suspicious ECG: Nonspecific Repolarization Age: >/= 65 years Risk Factors: >/= 3 Risk Factors or History of CAD Score: 5 MDM MDM MDM Narrative Medical decision making narrative: EKG was obtained. On my interpretation, it showed a normal sinus rhythm with a rate of 94. NC interval, QRS interval, and QTc intervals were all normal. [place] was normal. There are nonspecific ST-T wave changes. This is unchanged compared to previous EKG dated 04/17/2022. Portable 1 view chest x-ray was obtained. On my interpretation, lung romero are clear. There is normal cardiac silhouette. Bony thorax is normal. There is no acute process noted. Radiologist also interpreted the x-ray and agrees. CT scan of the brain was obtained. There is no acute intracranial abnormality. This was interpreted by the radiologist and reviewed by myself. X-rays of the left foot were obtained. There are 3 views. On my interpretation, there is no acute fracture or dislocation. There is no soft tissue swelling. Radiologist also interpreted the x-rays and agrees. CBC shows a mild anemia with a hemoglobin of 11.7 and hematocrit of 33.8. Basic metabolic profile shows slightly elevated glucose of 385. CO2 was normal. Anion gap was normal. High-sensitivity troponin was normal at 10. 2-hour repeat high-sensitivity troponin was normal at 12. Patient is feeling better on reevaluation. Patient was advised of his findings. Patient was instructed to follow-up with his primary care physician for further evaluation. Patient understood and was agreeable with the plan. All questions were answered. Lab Data Attestation: I reviewed the patient's lab results. Labs: Laboratory Results - last 24 hr 05/28/22 05/28/22 05/28/22 16:26 16:26 18:43 WBC 4.9 RBC 3.86 L Hgb 11.7 L Hct 33.8 L MCV 87.6 MCH 30.3 MCHC 34.6 RDW Std Deviation 43.0 RDW Coeff of Megan 13.6 Plt Count 217 MPV 9.5 Immature Gran % (Auto) 0.200 Neut % (Auto) 80.9 H Lymph % (Auto) 11.3 L [place] % (Auto) 7.2 Eos % (Auto) 0.2 Baso % (Auto) 0.2 Absolute Neuts (auto) 4.0 Absolute Lymphs (auto) 0.55 L Nucleated RBC % 0 Differential Comment SEE COMMENT Platelet Estimate ADEQUATE RBC Morphology N CHROM Anisocytosis RARE Sodium 138 Potassium 3.4 L Chloride 100 Carbon Dioxide 28.0 Anion Gap 10 BUN 12 Creatinine 1.06 Estim Creat Clear Calc 67.91 Est GFR (MDRD) Af Amer 89 Est GFR (MDRD) Non-Af 74 BUN/Creatinine Ratio 11.3 Glucose 385 H Calcium 9.7 Troponin I High Sens 10 12 Radiography Chest X-Ray - ED: 1 View, Read by ED Physician, Read by Radiologist and No Acute Disease Diagnostic Testing: Clinical Impression(s) from Imaging Studies Brain CT 05/28/22 16:48 IMPRESSION: Chronic involutional changes of the brain. Electronically Signed: Brian Ramos MD at 17:32 EDT Reading Location ID and State: [id number] / [employer] Tel , Service support , Chest X-Ray 05/28/22 17:00 IMPRESSION: No active disease. Electronically Signed: Brian Ramos MD at 17:19 EDT Reading Location ID and State: [id number] / [employer] Tel , Service support , Foot X-Ray 05/28/22 17:00 IMPRESSION: Normal x-ray examination of the foot. Electronically Signed: Brian Ramos MD at 17:20 EDT Reading Location ID and State: [id number] / [employer] Tel , Service support , EKG Initial EKG: Interpretation: Sinus Rhythm (94) and Non-Specific ST Changes Prior EKG tracings: available for review Prior: Unchanged (04/17/2022) Discharge Plan Triage Chief Complaint: Chest Pain ED Provider: Jered Huff Dx/Rx/DC Orders Clinical Impression: Chest pain of uncertain etiology, Syncope, Head injury, Contusion of left foot Instructions: ED Foot Contusion, ED Chest Pain, Uncertain Cause, ED Head Injury (Adult) Prescriptions: No Action omega 8-lbi-iqs-fish oil [Fish Oil] 1,000 mg (120 mg-180 mg) capsule 1,000 mg PO QDAY Label Comments: 1200 mg PO QDAY metformin 500 mg tablet extended release 24 hr 1,000 mg PO BID gabapentin 800 mg tablet 800 mg PO BID nitroglycerin 0.4 mg tablet, sublingual 0.4 mg SUBLINGUAL Q5M PRN (Reason: Chest Pain) Qty: 25 6RF Rx Instructions: take one tablet every 5-15 to not exceed 3 tablets prednisone 20 mg tablet 20 mg PO DAILY aspirin 81 MG tablet 81 mg PO DAILY@0800 atorvastatin 80 mg tablet 80 mg PO DAILY ranolazine [Ranexa] 500 mg tablet extended release 12 hr 500 mg PO BID amantadine HCl 100 mg Tablet 100 mg PO BID lorazepam 0.5 mg Tablet 0.5 mg PO BID sertraline 50 mg Tablet 50 mg PO DAILY pioglitazone [Actos] 15 mg Tablet 15 mg PO DAILY midodrine 10 mg tablet 10 mg PO TID Qty: 21 1RF Rx Instructions: Do not take if BP >120/80 clopidogrel [Plavix] 75 mg tablet 75 mg PO DAILY Qty: 90 3RF Primary Care Provider: Nadir Abdalla Referrals: Nadir Abdalla MD [Primary Care Provider] - 5-7 Days Disposition Disposition: Home, Self Care
--- NOTE | 2022-05-28 16:47 | EKG12_ITS ---
Test Reason : cp Blood Pressure : / mmHG Vent. Rate : 094 BPM Atrial Rate : 094 BPM P-R Int : 136 ms QRS Dur : 082 ms QT Int : 336 ms P-R-T Axes : 068 068 025 degrees QTc Int : 420 ms Normal sinus rhythm Nonspecific ST abnormality Abnormal ECG Confirmed by SHAHID POTTER, HUSSAIN ([id number]), rewrite editor CODY YOON ([id number]) on 05/30/2022 9:46:12 AM Referred By: Confirmed By:HUSSAIN KEY MD
--- NOTE | 2022-05-28 16:48 | CT_ITS ---
STUDY: CT BRAIN WITHOUT CONTRAST REASON FOR EXAM: Male, 67 years old. Injury/Pain RADIATION DOSAGE (If Supplied By Facility): CTDIvol = ( 44.99 ) mGy, DLP = ( 796.11 ) mGycm TECHNIQUE: Transaxial CT imaging of the brain was performed without administration of intravenous contrast material. Individualized dose optimization techniques were used for this CT. COMPARISON: 03/22/2022 FINDINGS: Normal soft tissue structures. Normal calvarium. There is mild cerebral atrophy with widening of the extra-axial spaces and ventricular dilatation. There are areas of decreased attenuation within the white matter tracts of the supratentorial brain, consistent with microvascular disease changes. There are small punctate calcifications of the basal ganglia which are seen in the aging brain as a normal variant. Normal brainstem. Normal cerebellum. There is no intracranial hemorrhage. There are no findings of an acute ischemic infarction. Normal visualized paranasal sinuses. CT/Brain/Head without Contrast IMPRESSION: Chronic involutional changes of the brain. Electronically Signed: Brian Ramos MD at 17:32 EDT ,
[2022-05-28] MEDS: Aspirin 81 MG TAB.CHEW 324 MG PO (16:56)
--- NOTE | 2022-05-28 17:00 | RAD_ITS ---
STUDY: X-RAY CHEST REASON FOR EXAM: Male, 67 years old. chest pain TECHNIQUE: Single AP portable view of the chest. COMPARISON: 02/04/2022 FINDINGS: Interval manager cardiac cath. The lungs are clear and expanded. There is no demonstrated pleural abnormality. Normal size heart. Normal mediastinum and bonnie. Normal visualized pulmonary arteries. Normal visualized aortic arch and descending thoracic aorta. Normal visualized thoracic spine. Normal visualized ribs, clavicles, and shoulders. There is no demonstrated abnormality of the visualized soft tissue structures of the upper abdomen. RAD/Chest 1 View (Portable) IMPRESSION: No active disease. Electronically Signed: Brian Ramos MD at 17:19 EDT ,
--- NOTE | 2022-05-28 17:00 | RAD_ITS ---
STUDY: X-RAY - LEFT FOOT CLINICAL: Male, 67 years old. Injury/Pain TECHNIQUE: 3 view(s) of the foot. COMPARISON: None. FINDINGS: Normal talus, calcaneus, and tarsal bones. Small posterior calcaneal and basal site. Normal visualized subtalar, talonavicular, calcaneocuboid, tarsal and tarsometatarsal articulations. Normal metatarsi. Normal metatarsophalangeal joint of the great toe. Normal tibial and fibular sesamoid bones. Normal interphalangeal joint of the great toe. Normal phalanges of the great toe. Normal second through fifth metatarsophalangeal joints. Normal interphalangeal joints and phalanges of the lesser toes. The soft tissue structures are unremarkable. RAD/Foot min 3 Views IMPRESSION: Normal x-ray examination of the foot. Electronically Signed: Brian Ramos MD at 17:20 EDT ,
[2022-05-28 17:07] LABS: Absolute Lymphocyte Count 0.55 X10^3/uL (0.83-4.51); Basophil# 0.01 X10^3/uL; Basophil% 0.2 % (0-1); Eosinophil# 0.01 X10^3/uL; Eosinophils% 0.2 % (0-5); Hematocrit 33.8 % (40-54); Hemoglobin 11.7 g/dL (13.0-16.5); Lymphocyte # 0.55 X10^3/ul (0.83-4.51); Lymphocyte % 11.3 % (19-41); Mean Corp Hgb Conc 34.6 g/dL (32-36); Mean Corpuscular Hgb 30.3 pg (27.0-32.0); Mean Corpuscular Volume 87.6 fL (80-94); Mean Platelet Vol. 9.5 fl (6.2-12.0); Monocyte# 0.35 X10^3/uL; Monocyte% 7.2 % (0-10); NRBC Flagged by Analyzer 0 % (0-5); Neutrophil # 3.95 X10^3/uL (2.7-7.7); Neutrophil % 80.9 % (47-70); POSITIVE DIFFERENTIAL YES; Platelet Count 217 K/mm3 (150-450); RBC Distribution Width CV 13.6 % (11.6-14.6); Red Blood Count 3.86 M/mm3 (4.6-6.2); White Blood Count 4.9 K/mm3 (4.4-11.0)
[2022-05-28 17:28] LABS: Anion Gap 10 (5-15); BUN 12 mg/dL (7-18); BUN/Creat Ratio 11.3 RATIO (10-20); Calcium,Total 9.7 mg/dL (8.5-10.1); Chloride 100 mmol/L (98-107); Creatinine, Serum 1.06 mg/dL (0.70-1.30); EST Glomerular Filtration Rate 74 mL/min (>60); Est Glom Filt Rate - Afr Amer 89 mL/min (>60); Estimated Creatinine Clearance 67.91 ml/min; Glucose 385 mg/dL (74-106); Potassium 3.4 mmol/L (3.5-5.1); Sodium Level 138 mmol/L (136-145); Troponin-I HS (w/2H Reflex) 10 pg/mL (3.0-78.0)
[2022-05-28 17:52] LABS: Differential Indicated SCAN CRITERIA MET
[2022-05-28 17:58] LABS: Anisocytosis RARE; Platelet Estimate ADEQUATE (ADEQ); Red Cell Morphology N CHROM NORMAL (NORM C&C)
[2022-05-28 18:38] VITALS: BP 155/86; RESP 19
[2022-05-28 19:04] LABS: Reflex Troponin-HS? (from REC) Y
[2022-05-28 19:58] LABS: Troponin-I HS 12 pg/mL (3.0-78.0)
[2022-05-28 20:49] VITALS: BP 179/88; PULSE 69; RESP 16; O2SAT 98
[2022-05-28 21:33] VITALS: BP 184/89; PULSE 74; RESP 16; O2SAT 98
== END 2022-05-28 21:34 | disposition home or self-care (01) ==
PROVIDERS: Emergency Provider Emergency Medicine; PCP Family Medicine; Visit Provider Emergency Medicine
DX: R07.9 Chest pain, unspecified (principal); E11.9 Type 2 diabetes mellitus without complications; E78.5 Hyperlipidemia, unspecified; I25.10 Atherosclerotic heart disease of native coronary artery without angina pectoris; R55 Syncope and collapse; I10 Essential (primary) hypertension; R00.2 Palpitations; S90.32XA Contusion of left foot, initial encounter; R61 Generalized hyperhidrosis; E66.9 Obesity, unspecified; Z79.82 Long term (current) use of aspirin; Z79.84 Long term (current) use of oral hypoglycemic drugs; Z79.52 Long term (current) use of systemic steroids; Z79.899 Other long term (current) drug therapy; W19.XXXA Unspecified fall, initial encounter
CPT/HCPCS: 70450; 71045; 73630; 80048; 84484; 85025; 93005; 99283; A4216

== ENCOUNTER 2023-01-16 15:01 | Emergency (ER) | payer MEDICARE, SELFPAY ==
[2020-09-11 08:28] VITALS: BMI 29.2
[2023-01-16 15:02] VITALS: BP 161/75; PULSE 82; RESP 14; TEMP 36.8; O2SAT 100; BMI 25.1
--- NOTE | 2023-01-16 15:20 | CT_ITS ---
EXAM: CT CERVICAL SPINE WITHOUT INTRAVENOUS CONTRAST CLINICAL INDICATION: injury TECHNIQUE: Helically acquired images were obtained of the cervical spine without intravenous contrast. 2D reformatted images were reviewed. This CT exam was performed using one or more of the following dose reduction techniques: automated exposure control, adjustment of the mA and/or kV according to patient size, and/or use of iterative reconstruction technique. COMPARISON: No relevant prior studies available. FINDINGS: VERTEBRAE: No acute fracture or subluxation. DISCS/SPINAL CANAL/NEURAL FORAMINA: Multilevel disc space narrowing and facet arthropathy. No spinal or neural foraminal stenosis. SOFT TISSUES: Normal. No prevertebral soft tissue swelling. LYMPH NODES: Normal. No cervical adenopathy. LUNG APICES: Unremarkable as visualized. CT/Spine Cervical without Contras IMPRESSION: No acute abnormality. Moderate diffuse spondylosis. Electronically Signed: Reymundo Nowak MD at 16:04 EDT ,
--- NOTE | 2023-01-16 15:20 | CT_ITS ---
EXAM: CT HEAD WITHOUT INTRAVENOUS CONTRAST CLINICAL INDICATION: Injury TECHNIQUE: Multiple axial images were obtained of the head without intravenous contrast. This CT exam was performed using one or more of the following dose reduction techniques: automated exposure control, adjustment of the mA and/or kV according to patient size, and/or use of iterative reconstruction technique. COMPARISON: CT Head dated 05/28/2022 FINDINGS: BRAIN AND EXTRA-AXIAL SPACES: No intra- or extra-axial hemorrhage. No acute infarct. No intracranial mass or mass effect. There is preservation of the mackey/white matter interface. Posterior fossa structures are unremarkable. Ventricles are appropriate for age. No hydrocephalus. Basal cisterns are patent. BONES/JOINTS: No suspicious lytic or blastic abnormality. SINUSES: No acute sinusitis. MASTOID AIR CELLS: Normal. Clear. ORBITS: Visualized globes, extraocular muscles, optic nerves and retrobulbar fat appear unremarkable. CT/Brain/Head without Contrast IMPRESSION: No acute intracranial abnormality. No interval change. Electronically Signed: Reymundo Nowak MD at 16:05 EDT ,
--- NOTE | 2023-01-16 15:30 | EX.ED.DYSGE1 ---
HPI <CAMELIA Ludwig - Last Filed: 01/16/23 16:14> History of Present Illness Chief Complaint: Head Injury Narrative Narrative: Last night patient was getting close out of his dresser when a binder for baseball cards fell onto the top of his head. He states it weighs about 10 pounds. No LOC. He is on Plavix/aspirin for cardiac stents. Since this happened he has had a headache, neck pain, and pain radiating into both arms. No weakness, numbness or tingling. No visual changes or nausea or vomiting. PFSH <CAMELIA Ludwig - Last Filed: 01/16/23 16:14> [facility] Medical History Atherosclerotic heart disease of [place] coronary artery without angina pectoris Bilateral carotid artery stenosis BPH (benign prostatic hyperplasia) COVID-19 (06/2021) DDD (degenerative disc disease) Elevated LFTs Essential (primary) hypertension Hyperlipidemia Sciatica Syncope (10/2021) Tremor of both hands Type 2 diabetes mellitus Home Medications aspirin 81 mg tablet,delayed release 81 mg PO DAILY@0800 [facility] 09/13/13 [History Last Taken 02/11/22] omega 3-ycd-bpl-fish oil 1,000 mg (120 mg-180 mg) capsule (Fish Oil) 1,000 mg PO QDAY supplement 01/06/18 [History Last Taken 12/29/21] metformin 500 mg tablet,extended release 24 hr 1,000 mg PO BID 07/25/20 [History Last Taken 02/10/22] lorazepam 0.5 mg tablet 0.5 mg PO BID PRN Anxiety 05/23/22 [History Last Taken Unknown] pioglitazone 30 mg tablet (Actos) 30 mg PO DAILY 06/19/22 [History Last Taken Unknown] atorvastatin 80 mg tablet 80 mg PO DAILY cholesterol #90 tabs 06/21/22 [Rx Last Taken Unknown] clopidogrel 75 mg tablet (Plavix) 75 mg PO DAILY #90 tabs 06/21/22 [Rx Last Taken Unknown] ferrous sulfate 325 mg (65 mg iron) tablet 325 mg PO DAILY 06/28/22 [History Last Taken Unknown] pantoprazole 40 mg tablet,delayed release (Protonix) 40 mg PO DAILY #30 tabs 07/16/22 [Rx Last Taken Unknown] nitroglycerin 0.4 mg sublingual tablet 0.4 mg sublingual Q5M PRN Chest Pain #25 tabs 09/03/22 [Rx Last Taken Unknown] fluticasone propionate 50 mcg/actuation nasal spray,suspension 1 spray intranasal BID 10/23/22 [History Last Taken Unknown] Allergy/AdvReac Type Severity Reaction Status Date / Time fludrocortisone Allergy Severe [facility]EDEMA [facility]23 [facility] perfume AdvReac Other Verified 01/16/23 15:01 Family History Sister CAD (coronary artery disease) CVA (cerebral vascular accident) Diabetes Myocardial infarction Hx of CABG Mother Cancer Lung CA Surgical History History of cataract surgery History of coronary artery stent placement (07/23/21) History of hand surgery History of left heart catheterization (02/11/22) History of loop recorder (12/13/21) Hx of appendectomy Social History Smoking Status: Never smoker alcohol intake: never substance use type: does not use caffeine: Yes Type: coffee what type of physical activity do you participate in: none seatbelt use: always do you feel safe at home: Yes ROS <CAMELIA Ludwig - Last Filed: 01/16/23 16:14> ROS ED ROS Narrative Constitutional: Negative for fever, chills, malaise. GI: Negative for nausea, vomiting. Neuro: Positive for headache, negative for motor/sensory dysfunction. Musc: Negative for joint pain, swelling, trauma. . EXAM <CAMELIA Ludwig - Last Filed: 01/16/23 16:14> Physical Exam Narrative Exam Narrative: CONST: Patient sitting in no acute distress. EYES: Normal inspection. PERRLA, EOMI. HEAD: Small abrasion that appears like red gus on the vertex, no laceration. No hematoma or crepitus. No raccoon eyes or wallace sign, no nasal septal hematoma or hemotympanum, no CSF otorrhea or rhinorrhea. NECK: Normal inspection. Cervical tenderness with no step-offs. RESP: No respiratory distress, CTAB. CVS: Regular rate and rhythm, no murmur, no gallop. SKIN: Color normal, no rash, warm, dry, intact. EXTREMITIES: Normal appearance, no pedal edema. NEURO: Oriented x4. 5/5 upper extremity strength, normal sensation, 2+ radial pulses. PSYCH: Normal affect. Const Vital Signs: 01/16/23 15:02 01/16/23 16:24 Temperature 98.2 F Temperature Source Temporal Pulse Rate 82 Respiratory Rate 14 14 Blood Pressure 161/75 H Blood Pressure Mean 103 Pulse Ox 100 Oxygen Delivery Method Room Air <Dr. Baldev Gupta DO - Last Filed: 01/16/23 20:34> Physical Exam Const Vital Signs: 01/16/23 15:02 01/16/23 16:24 Temperature 98.2 F Temperature Source Temporal Pulse Rate 82 Respiratory Rate 14 14 Blood Pressure 161/75 H Blood Pressure Mean 103 Pulse Ox 100 Oxygen Delivery Method Room Air MDM <CAMELIA Ludwig - Last Filed: 01/16/23 16:14> [facility] MDM Narrative Medical decision making narrative: Patient has a binder baseball cards fullness since last night. No LOC. Still having soreness, headache, neck pain. He is awake alert GCS 15. VSS. He has a small scalp abrasion but no signs of skull fracture. Mild C-spine tenderness with no step-offs. Neurologically intact. Scans of the CT head and neck are negative. Patient declined pain medicine here and I recommended [id number] Tylenol at home. He was given head injury return precautions and discharged in stable condition. Differential: Head injury, concussion, intracranial bleed Radiography Diagnostic Testing: Clinical Impression(s) from Imaging Studies Brain CT 01/16/23 15:20 IMPRESSION: No acute intracranial abnormality. No interval change. Electronically Signed: Reymundo Nowak MD at 16:05 EDT , Cervical Spine CT 01/16/23 15:20 IMPRESSION: No acute abnormality. Moderate diffuse spondylosis. Electronically Signed: Reymundo Nowak MD at 16:04 EDT , <Dr. Baldev Gupta, DO - Last Filed: 01/16/23 20:34> [facility] Narrative Medical decision making narrative: Patient has a binder baseball cards fullness since last night. No LOC. Still having soreness, headache, neck pain. He is awake alert GCS 15. VSS. He has a small scalp abrasion but no signs of skull fracture. Mild C-spine tenderness with no step-offs. Neurologically intact. Scans of the CT head and neck are negative. Patient declined pain medicine here and I recommended [id number] Tylenol at home. He was given head injury return precautions and discharged in stable condition. Differential: Head injury, concussion, intracranial bleed This patient was seen with a PA/BOTTOM SAW OPERATOR Individually assessed they patient including history and physical. I have reviewed everything on the chart that is available and agree with the documentation provided by the PA/BOTTOM SAW OPERATOR including discussion about the assessment, treatment plan, discussion, and return precautions. Patient with headache pain and neck pain after a baseball card Binder fell on his head. No LOC. Alert and awake no acute distress. Not vital signs stable afebrile. No focal neurologic deficits or lateralizing signs or symptoms. CT of the brain and cervical spine were obtained and these were negative. Patient declined analgesia greater than Tylenol ibuprofen. He is discharged home. I recommended alternating ice and heat. Radiography Diagnostic Testing: Clinical Impression(s) from Imaging Studies Brain CT 01/16/23 15:20 IMPRESSION: No acute intracranial abnormality. No interval change. Electronically Signed: Reymundo Nowak MD at 16:05 EDT , Cervical Spine CT 01/16/23 15:20 IMPRESSION: No acute abnormality. Moderate diffuse spondylosis. Electronically Signed: Reymundo Nowak MD at 16:04 EDT , Discharge Plan Triage Chief Complaint: Head Injury ED Midlevel Provider: Kimi Wahl ED Provider: Baldev Gupta Dx/Rx/DC Orders Clinical Impression: Abrasion of scalp, Concussion Instructions: Concussion Dc Prescriptions: No Action omega 0-gpc-bjm-fish oil [Fish Oil] 1,000 mg (120 mg-180 mg) capsule 1,000 mg PO QDAY Label Comments: 1200 mg PO QDAY metformin 500 mg tablet extended release 24 hr 1,000 mg PO BID pantoprazole [Protonix] 40 mg tablet,delayed release (DR/EC) 40 mg PO DAILY Qty: 30 11RF fluticasone propionate 50 mcg/actuation spray,suspension 1 spray intranasal BID Rx Instructions: administer into each nostril aspirin 81 MG tablet 81 mg PO DAILY@0800 lorazepam 0.5 mg Tablet 0.5 mg PO BID PRN (Reason: Anxiety) pioglitazone [Actos] 30 mg Tablet 30 mg PO DAILY atorvastatin 80 mg tablet 80 mg PO DAILY Qty: 90 3RF clopidogrel [Plavix] 75 mg tablet 75 mg PO DAILY Qty: 90 3RF ferrous sulfate 325 mg (65 mg iron) tablet 325 mg PO DAILY nitroglycerin 0.4 mg tablet, sublingual 0.4 mg SUBLINGUAL Q5M PRN (Reason: Chest Pain) Qty: 25 6RF Rx Instructions: take one tablet every 5-15 to not exceed 3 tablets Primary Care Provider: Nadir Abdalla Referrals: Nadir Abdalla MD [Primary Care Provider] - Activity Restrictions/Additional Instructions: Take Tylenol every 6 hours as needed for pain. If your headache becomes much worse, you develop vomiting, confusion etc. come back to the ER. Disposition Disposition: Home, Self Care Discharge Date/Time: 01/16/23 16:25
[2023-01-16 16:24] VITALS: RESP 14
== END 2023-01-16 16:25 | disposition home or self-care (01) ==
LOC: ED 15:57
PROVIDERS: Emergency Provider Student in an Organized Health Care Education/Training Program; PCP Family Medicine; Visit Provider Student in an Organized Health Care Education/Training Program
DX: S06.0X0A Concussion without loss of consciousness, initial encounter (principal); E11.9 Type 2 diabetes mellitus without complications; W20.8XXA Other cause of strike by thrown, projected or falling object, initial encounter; I10 Essential (primary) hypertension; S00.01XA Abrasion of scalp, initial encounter; I25.10 Atherosclerotic heart disease of native coronary artery without angina pectoris; M79.601 Pain in right arm; M79.602 Pain in left arm; E78.5 Hyperlipidemia, unspecified; Z79.82 Long term (current) use of aspirin; Z79.02 Long term (current) use of antithrombotics/antiplatelets; Z79.84 Long term (current) use of oral hypoglycemic drugs; Z79.899 Other long term (current) drug therapy; Z95.5 Presence of coronary angioplasty implant and graft
CPT/HCPCS: 70450; 72125; 99282

== ENCOUNTER 2023-01-20 15:54 | Emergency (ER) | payer MEDICARE, SELFPAY ==
[2020-09-11 08:28] VITALS: BMI 29.2
[2023-01-20 15:55] VITALS: BP 149/84; PULSE 89; RESP 18; TEMP 36.6; O2SAT 97; BMI 25.2
--- NOTE | 2023-01-20 16:27 | EKG12_ITS ---
Test Reason : GENERAL Blood Pressure : / mmHG Vent. Rate : 077 BPM Atrial Rate : 077 BPM P-R Int : 116 ms QRS Dur : 082 ms QT Int : 366 ms P-R-T Axes : 024 030 010 degrees QTc Int : 414 ms Normal sinus rhythm Normal ECG Confirmed by SHAHID POTTER, HUSSAIN ([id number]), assistant film editor CODY YOON ([id number]) on 01/22/2023 2:06:46 PM Referred By: Confirmed By:HUSSAIN KEY MD
--- NOTE | 2023-01-20 16:28 | CT_ITS ---
STUDY: CT BRAIN WITHOUT CONTRAST REASON FOR EXAM: Male, 67 years old. head traunma Individualized dose optimization techniques were used for this CT. TECHNIQUE: Transaxial CT imaging of the brain was performed without administration of intravenous contrast material. COMPARISON: 01.16.23 FINDINGS: There are calcifications around the carotid artery. These are noted in the cavernous carotid arteries. Normal calvarium. Normal soft tissues. There is mild cerebral atrophy with widening of the extra-axial spaces and ventricular dilatation. There are areas of decreased attenuation within the white matter tracts of the supratentorial brain, consistent with microvascular disease changes. There are small punctate calcifications of the basal ganglia which are seen in the aging brain as a normal variant. Normal brainstem. There is mild cerebellar atrophy. There is no intracranial hemorrhage. There are no findings of an acute ischemic infarction. Normal visualized paranasal sinuses. ASPECTS Score for Acute Strokes: 06/10 CT/Brain/Head without Contrast IMPRESSION: There are no acute findings. Chronic involutional changes of the brain. Electronically Signed: Rafa Whiting MD at 17:32 EDT ,
--- NOTE | 2023-01-20 16:29 | EX.ED.GENINJ ---
HPI History of Present Illness Chief Complaint: Head Injury Informant: patient Onset/Context/Timing Onset: Days Mechanism/Context: Blunt Injury Current Severity: Mild Maximum Severity: Mild Associated Symptoms Associated Symptoms: Positive for Weakness; Negative for Parasthesias, Loss of function, Inability to ambulate, Loss of consciousness or Amnesia Narrative Narrative: 67-year-old male had 4 to 5 days ago with 15 pound catalog sports cards. Was seen at that time had a CAT scan of his head and neck which was unremarkable. He is on Plavix and aspirin for cardiac stents. Today headache progressively is getting worse. Said he just does not feel well. He is diabetic and has no coronary disease. Prior similar symptoms: Yes Recent Illness/Hospitalization: No PFSH [facility] Medical History Atherosclerotic heart disease of [place] coronary artery without angina pectoris Bilateral carotid artery stenosis BPH (benign prostatic hyperplasia) COVID-19 (06/2021) DDD (degenerative disc disease) Elevated LFTs Essential (primary) hypertension Hyperlipidemia Sciatica Syncope (10/2021) Tremor of both hands Type 2 diabetes mellitus Home Medications aspirin 81 mg tablet,delayed release 81 mg PO DAILY@0800 [facility] 09/13/13 [History Last Taken 02/11/22] omega 9-yck-ipt-fish oil 1,000 mg (120 mg-180 mg) capsule (Fish Oil) 1,000 mg PO QDAY supplement 01/06/18 [History Last Taken 12/29/21] metformin 500 mg tablet,extended release 24 hr 1,000 mg PO BID 07/25/20 [History Last Taken 02/10/22] lorazepam 0.5 mg tablet 0.5 mg PO BID PRN Anxiety 05/23/22 [History Last Taken Unknown] pioglitazone 30 mg tablet (Actos) 30 mg PO DAILY 06/19/22 [History Last Taken Unknown] atorvastatin 80 mg tablet 80 mg PO DAILY cholesterol #90 tabs 06/21/22 [Rx Last Taken Unknown] clopidogrel 75 mg tablet (Plavix) 75 mg PO DAILY #90 tabs 06/21/22 [Rx Last Taken Unknown] ferrous sulfate 325 mg (65 mg iron) tablet 325 mg PO DAILY 06/28/22 [History Last Taken Unknown] pantoprazole 40 mg tablet,delayed release (Protonix) 40 mg PO DAILY #30 tabs 07/16/22 [Rx Last Taken Unknown] nitroglycerin 0.4 mg sublingual tablet 0.4 mg sublingual Q5M PRN Chest Pain #25 tabs 09/03/22 [Rx Last Taken Unknown] fluticasone propionate 50 mcg/actuation nasal spray,suspension 1 spray intranasal BID 10/23/22 [History Last Taken Unknown] Allergy/AdvReac Type Severity Reaction Status Date / Time fludrocortisone Allergy Severe ANGIOEDEMA Verified 01/16/23 15:01 [From [facility]] perfume AdvReac Other Verified 01/16/23 15:01 Family History Sister CAD (coronary artery disease) CVA (cerebral vascular accident) Diabetes Myocardial infarction Hx of CABG Mother Cancer Lung CA Surgical History History of cataract surgery History of coronary artery stent placement (07/23/21) History of hand surgery History of left heart catheterization (02/11/22) History of loop recorder (12/13/21) Hx of appendectomy Social History Smoking Status: Never smoker alcohol intake: never substance use type: does not use caffeine: Yes Type: coffee what type of physical activity do you participate in: none seatbelt use: always do you feel safe at home: Yes ROS ROS ED ROS Narrative Headache, atypical chest pain constant for days. Recent head trauma. Review of Systems ROS Unobtainable: Denies due to encephalopathy Constitutional Constitutional ED: Denies chills or fever(s) Eyes Eyes: Denies blurry vision ENT ENT ED: Denies ear pain Cardiovascular Cardiovascular: Reports chest pain; Denies palpitations or racing heartbeat Respiratory/Chest Respiratory/Chest: Denies cough or dyspnea Gastrointestinal Gastrointestinal: Denies abdominal pain, constipation, diarrhea, melena, nausea or vomiting Genitourinary Genitourinary ED: Denies dysuria Musculoskeletal Musculoskeletal: Denies arthralgias Integumentary Denies abscess Neurologic Neurologic: Reports headache(s); Denies paresthesias or weakness Psychiatric Psychiatric: Denies anxiety Endocrine Endocrinology: Denies cold intolerance Hematologic/Lymphatic Hematologic/Lymphatic: Denies easy bleeding Allergic/Immunologic Allergic/Immunologic ED: Denies mouth swelling or tongue swelling EXAM Physical Exam Narrative Exam Narrative: While patient 7-year-old male vital signs stable afebrile. H EENT exam unremarkable atraumatic. Pupils round reactive light. No facial droop. There is no significant hematoma, laceration or abrasion left scalp. Neck nontender. Trachea midline. Lungs clear to auscultation bilaterally. Chest wall nontender. Abdomen soft nontender.. Heart regular rhythm rate about 90 no murmur. Moving all 4 extremities. Neurovascular intact. Nontender no edema. Normal strength and sensation. Normal range of motion. No drift. Neurologic exam normal. NIH is 0. Const Vital Signs: 01/20/23 15:55 01/20/23 16:36 01/20/23 16:41 Temperature 97.8 F Temperature Source Temporal Pulse Rate 89 72 Respiratory Rate 18 16 Respiratory Effort Normal Non-Labored Respiratory Depth Normal Respiratory Pattern Normal Blood Pressure 149/84 H 160/84 H Blood Pressure Mean 105 109 Pulse Ox 97 99 Oxygen Delivery Method Room Air Room Air Room Air Positive well nourished and well developed; Negative for obese, cachectic, contractures or unkempt General Appearance ED: well developed and NAD; Negative for unkempt, cachectic or contractures Nutritional Appearance: Negative for cachectic or obese HEENT trauma and tenderness; Negative for atraumatic Nose: Negative for septum abnormal Eyes PERRL and EOMs intact bilaterally Neck full ROM General: Negative for tenderness Chest Wall inspection of chest normal and palpation of chest normal Breast/Axilla Inspection: Negative for other Resp normal respiratory effort and clear to auscultation bilaterally Effort and Inspection: Negative for pain with movement Auscultation: Negative for rales, rhonchi or wheezes Cardio regular rhythm, S1 normal heart sound, S2 normal heart sound and no murmurs Jugular Venous Distention: Negative for other Palpation: Negative for palpable S3 Rate: Negative for regular rate Rhythm: Negative for abnormal rhythm GI normal to inspection, nondistended, normoactive bowel sounds, non-tender, non-distended and no masses Inspection: Negative for abdominal distention Auscultation: Negative for normoactive bowel sounds Palpation: soft; Negative for tender or guarding Back/Spine normal to inspection and no thoracic nor lumbar tenderness General Back: Negative for CVA tenderness Thoracic Spine / Upper Back: Negative for thoracic spinal tenderness Extremity normal to inspection and full ROM General Extremety ED: Negative for deformity, edema or tenderness General Extremity: Negative for deformity or edema Neuro oriented x3, CN's II-XII intact bilaterally, moves all extremities and no focal motor deficits Maria Guadalupe Coma Scale: document GCS findings Spontaneous Obeys Commands Oriented 15 Sensorium / Orientation: alert, oriented to person, oriented to place and oriented to time; Negative for orientation impaired, lethargic or stuporous Motor Exam: strength 5/5 throughout Psych mental status grossly normal and thought process normal Appearance: Negative for unkempt Attitude: No agitated Mood & Affect: Negative for depressed, anxious or tearful Skin no rashes or lesions noted, no wounds, skin turgor normal and no jaundice General Skin Exam: Negative for other Rashes: No rashes noted Trauma: Negative for abrasion Wounds: Negative for wounds noted MDM MDM MDM Narrative Medical decision making narrative: 67-year-old male recent head injury on Plavix and aspirin complaining of worsening headache. Clinically his exam is benign. He is diabetic he has coronary disease. He said he just has not been feeling well. I will check screening labs. I am going to reCAT scan his head for the low likelihood that he might have a delayed intracranial bleed but he has a normal neurologic exam. Repeat exam patient is doing well at 7:15 PM. We went over his test results. He will be discharged home. History & Record Review Discussion w/independent historian: Patient Lab Data Attestation: I reviewed the patient's lab results. Lab results narrative: CBC shows white count 5.4 H&H 11.6 35.1. Platelets 193. Electrolytes unremarkable gap at 9. Normal BUN and creatinine. Glucose 197. Troponin 5. EKG unremarkable. When compared to prior labs are baseline. He has a chronic anemia. Labs: Laboratory Results - last 24 hr 01/20/23 01/20/23 16:35 16:35 WBC 5.4 RBC 3.90 L Hgb 11.6 L Hct 35.1 L MCV 90.0 MCH 29.7 MCHC 33.0 RDW Std Deviation 42.0 RDW Coeff of Megan 12.8 Plt Count 193 MPV 9.3 Immature Gran % (Auto) 0.400 Neut % (Auto) 67.1 Lymph % (Auto) 20.5 [place] % (Auto) 8.8 Eos % (Auto) 2.6 Baso % (Auto) 0.6 Absolute Neuts (auto) 3.6 Absolute Lymphs (auto) 1.10 Nucleated RBC % 0 Sodium 136 Potassium 4.0 Chloride 104 Carbon Dioxide 23.0 Anion Gap 9 BUN 18 Creatinine 0.94 Estim Creat Clear Calc 76.58 Est GFR (MDRD) Af Amer 102 Est GFR (MDRD) Non-Af 84 BUN/Creatinine Ratio 19.1 Glucose 197 H Calcium 9.2 Troponin I High Sens 5 Radiography Chest X-Ray - ED: 1 View, Read by ED Physician, Read by Radiologist, Heart, Lungs, Mediastinum, Bony Structures, No Acute Disease and Chronic Changes Diagnostic Testing: Clinical Impression(s) from Imaging Studies Brain CT 01/20/23 16:28 IMPRESSION: There are no acute findings. Chronic involutional changes of the brain. Electronically Signed: Rafa Whiting MD at 17:32 EDT , Chest X-Ray 01/20/23 16:50 IMPRESSION: There are no acute findings. Electronically Signed: Rafa Whiting MD at 17:24 EDT , Chest x-ray shows no acute process. Interpreted by myself. Portable single view. Also read the radiologist who agrees. CT of the brain shows no acute abnormality. No change. Chronic changes. No delayed intracranial bleed. Rhythm Strip Rhythm Strip: Sinus Rhythm Rate: 77 Ectopy: None EKG Initial EKG: Attestation: I personally reviewed and interpreted this EKG as follows: Interpretation: Sinus Rhythm and No Acute Injury Pattern Comments: Normal sinus rhythm rate of 77 no acute signs of SD or ischemia. Discharge Plan Triage Chief Complaint: Head Injury ED Provider: Donal Ahumada Dx/Rx/DC Orders Clinical Impression: Closed head injury, History of diabetes mellitus, History of CAD (coronary artery disease) Instructions: ED Head Injury (Adult) Prescriptions: No Action omega 0-hna-vou-fish oil [Fish Oil] 1,000 mg (120 mg-180 mg) capsule 1,000 mg PO QDAY Label Comments: 1200 mg PO QDAY metformin 500 mg tablet extended release 24 hr 1,000 mg PO BID pantoprazole [Protonix] 40 mg tablet,delayed release (DR/EC) 40 mg PO DAILY Qty: 30 11RF fluticasone propionate 50 mcg/actuation spray,suspension 1 spray intranasal BID Rx Instructions: administer into each nostril aspirin 81 MG tablet 81 mg PO DAILY@0800 lorazepam 0.5 mg Tablet 0.5 mg PO BID PRN (Reason: Anxiety) pioglitazone [Actos] 30 mg Tablet 30 mg PO DAILY atorvastatin 80 mg tablet 80 mg PO DAILY Qty: 90 3RF clopidogrel [Plavix] 75 mg tablet 75 mg PO DAILY Qty: 90 3RF ferrous sulfate 325 mg (65 mg iron) tablet 325 mg PO DAILY nitroglycerin 0.4 mg tablet, sublingual 0.4 mg SUBLINGUAL Q5M PRN (Reason: Chest Pain) Qty: 25 6RF Rx Instructions: take one tablet every 5-15 to not exceed 3 tablets Primary Care Provider: Nadir Abdalla Referrals: Nadir Abdalla MD [Primary Care Provider] - 1 Week if not improving Activity Restrictions/Additional Instructions: All your test today look good. Follow-up with your primary care physician. It may take several weeks to get over your head injury. Disposition Disposition: Home, Self Care
[2023-01-20 16:41] VITALS: BP 160/84; PULSE 72; RESP 16; O2SAT 99
--- NOTE | 2023-01-20 16:50 | RAD_ITS ---
STUDY: XR Chest 1 View 01/20/2023 4:53 PM REASON FOR EXAM: Male, 67 years old. CHEST PAIN atypical cp COMPARISON: 05/28/2022 TECHNIQUE: XR Chest 1 View FINDINGS: There is no demonstrated pleural abnormality. Loop recorder noted. Normal heart size. Normal mediastinum. Normal bonnie. Prominent appearing increased interstitial lung markings. Normal visualized pulmonary arteries. There is atherosclerotic calcification of the aortic arch with tortuosity. There are diffuse degenerative changes of the visualized thoracic spine. There is degenerative osteoarthritis of the bilateral shoulders. There is no demonstrated abnormality of the visualized soft tissue structures of the upper abdomen. RAD/Chest 1 View (Portable) IMPRESSION: There are no acute findings. Electronically Signed: Rafa Whiting MD at 17:24 EDT ,
[2023-01-20 16:54] LABS: Absolute Neutrophil Count 3.6 X10^3/uL (2.0-7.7); Basophil# 0.03 X10^3/uL; Basophil% 0.6 % (0-1); Eosinophil# 0.14 X10^3/uL; Eosinophils% 2.6 % (0-5); Hematocrit 35.1 % (40-54); Hemoglobin 11.6 g/dL (13.0-16.5); Lymphocyte % 20.5 % (19-41); Mean Corpuscular Hgb 29.7 pg (27.0-32.0); Mean Platelet Vol. 9.3 fl (6.2-12.0); Monocyte# 0.47 X10^3/uL; Monocyte% 8.8 % (0-10); NRBC Flagged by Analyzer 0 % (0-5); Neutrophil # 3.61 X10^3/uL (2.7-7.7); Neutrophil % 67.1 % (47-70); Platelet Count 193 K/mm3 (150-450); RBC Distribution Width CV 12.8 % (11.6-14.6); White Blood Count 5.4 K/mm3 (4.4-11.0)
[2023-01-20] MEDS: Acetaminophen 500 MG Tablet 1000 MG PO (17:53)
[2023-01-20 18:12] LABS: Anion Gap 9 (5-15); BUN 18 mg/dL (7-18); BUN/Creat Ratio 19.1 RATIO (10-20); Calcium,Total 9.2 mg/dL (8.5-10.1); Chloride 104 mmol/L (98-107); Creatinine, Serum 0.94 mg/dL (0.70-1.30); EST Glomerular Filtration Rate 84 mL/min (>60); Est Glom Filt Rate - Afr Amer 102 mL/min (>60); Estimated Creatinine Clearance 76.58 ml/min; Glucose 197 mg/dL (74-106); Sodium Level 136 mmol/L (136-145); Troponin-I HS 5 pg/mL (3.0-78.0)
[2023-01-20 19:27] VITALS: BP 161/79; PULSE 62; RESP 16; TEMP 36.6; O2SAT 97
== END 2023-01-20 19:30 | disposition home or self-care (01) ==
PROVIDERS: Emergency Provider Emergency Medicine; PCP Family Medicine; Visit Provider Emergency Medicine
DX: S09.90XA Unspecified injury of head, initial encounter (principal); E11.9 Type 2 diabetes mellitus without complications; I25.10 Atherosclerotic heart disease of native coronary artery without angina pectoris; I10 Essential (primary) hypertension; E78.5 Hyperlipidemia, unspecified; Z95.5 Presence of coronary angioplasty implant and graft; Z79.02 Long term (current) use of antithrombotics/antiplatelets; Z79.82 Long term (current) use of aspirin; X58.XXXA Exposure to other specified factors, initial encounter
CPT/HCPCS: 70450; 71045; 80048; 84484; 85025; 93005; 99283; A4216

== ENCOUNTER → 2023-06-06 | Outpatient (CLI) | payer MEDICARE, SELFPAY ==
[2020-09-11 08:28] VITALS: BMI 29.2
--- NOTE | 2023-06-06 18:00 | STRESSREP ---
Stress Test Report Pharmacologic myocardial perfusion stress test. 68-year-old male with a history of coronary disease status post previous angioplasty and stenting of the left anterior descending artery, proximal circumflex artery, and right coronary artery. Resting EKG demonstrates sinus rhythm with a rate of 61 bpm. Resting blood pressure is 152/72 mmHg. 0.4 mg of regadenoson was infused per usual protocol followed by rapid intravenous saline flush injection. Continuous EKG monitoring was performed. The maximum heart rate was 86 bpm which was 57% of max impacted heart rate the maximum workload was 1 metabolic equivalent. At rest there were no ST or T wave changes noted to suggest ischemia and at peak infusion nonspecific ST changes were noted which did not meet the criteria for ischemia. No clinical angina is noted. The final blood pressure was 140/62 mmHg. Myocardial perfusion protocol. 11.8 mCi of technetium 99m sestamibi was injected at rest. 0.4 mg of regadenoson was infused per usual protocol. At peak infusion 43.8 mCi of technetium 99m sestamibi was injected stress images were obtained stress and rest images were reconstructed and compared in the short axis vertical long and horizontal long axis. Gated images were also obtained. Perfusion SPECT analysis: Review of the stress images demonstrate normal uptake of tracer noted in all areas of the myocardium. The resting images similar demonstrated normal uptake of tracer noted in all areas of the myocardium. No areas of reversibility are noted to suggest ischemia and no previous infarct is noted. Motion artifact was noted. Gated SPECT analysis: The gated ejection fraction is preserved. Conclusion: Normal pharmacologic myocardial perfusion stress test. Reserved ejection fraction.
== END | disposition home or self-care (01) ==
PROVIDERS: PCP Family Medicine; Referring Provider Internal Medicine Cardiovascular Disease; Visit Provider Internal Medicine Cardiovascular Disease
DX: I25.10 Atherosclerotic heart disease of native coronary artery without angina pectoris (principal)
CPT/HCPCS: 78452; 93017; A9500; A4216; J2785

== ENCOUNTER 2023-10-09 18:08 | Inpatient (IN) | payer MEDICARE, SELFPAY ==
[2020-09-11 08:28] VITALS: BMI 29.2
[2023-10-09] VITALS (7 sets, daily range): BP systolic 118–191; BP diastolic 69–81; PULSE 75–112; RESP 16–24; TEMP 36.3–36.6; O2SAT 93–97; BMI 34.7; BMI 28.1
--- NOTE | 2023-10-09 18:25 | ED.VIS.CHEST ---
HPI History of Present Illness Chief Complaint: Chest Pain Informant: patient and friend Narrative Narrative: Presents with chest pain. Patient was doing a lot of moving and cleaning out in the garage today. He did have an episode of chest discomfort that went away when he stopped and rested. But he was feeling well. He was then inside sitting still and he got the onset of pain. It is just left of center of his chest. It waxes and wanes but never goes away. It does radiate down his left arm at times. He does feel little short of breath with it. He felt a little lightheaded but not clammy. He may have felt transiently mild nausea. He has a history of heart disease. He has had multiple stents. His last stent was July 22. I did review his chart in portion. 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 He had a stress test that was myocardial perfusion in June 23 that showed no acute process. He has a history of GERD but is not having acid taste. He is taking his Plavix and aspirin ranolazine. He has never had chest pain with his ranolazine before. [facility] Medical History Atherosclerotic heart disease of [place] coronary artery without angina pectoris Bilateral carotid artery stenosis BPH (benign prostatic hyperplasia) COVID-19 (06/2021) DDD (degenerative disc disease) Elevated LFTs Essential (primary) hypertension Hyperlipidemia Sciatica Syncope (10/2021) Tremor of both hands Type 2 diabetes mellitus Home Medications aspirin 81 mg tablet,delayed release 81 mg PO DAILY@0800 heart [facility] 09/13/13 [History Last Taken 02/11/22] omega 5-fib-sbv-fish oil 1,000 mg (120 mg-180 mg) capsule (Fish Oil) 1,000 mg PO QDAY supplement 01/06/18 [History Last Taken 12/29/21] metformin 500 mg tablet,extended release 24 hr 500 mg PO BID 07/25/20 [History Last Taken 02/10/22] lorazepam 0.5 mg tablet 0.5 mg PO BID PRN Anxiety 05/23/22 [History Last Taken Unknown] pioglitazone 30 mg tablet (Actos) 30 mg PO DAILY 06/19/22 [History Last Taken Unknown] ferrous sulfate 325 mg (65 mg iron) tablet 325 mg PO DAILY 10/28/22 [History Last Taken Unknown] pantoprazole 40 mg tablet,delayed release (Protonix) 40 mg PO DAILY #30 tabs 07/16/22 [Rx Last Taken Unknown] nitroglycerin 0.4 mg sublingual tablet 0.4 mg sublingual Q5M PRN Chest Pain #25 tabs 09/03/22 [Rx Last Taken Unknown] fluticasone propionate 50 mcg/actuation nasal spray,suspension 1 spray intranasal BID 10/23/22 [History Last Taken Unknown] ranolazine 500 mg tablet,extended release,12 hr 500 mg PO BID #60 tabs 05/15/23 [Rx Last Taken Unknown] atorvastatin 80 mg tablet 80 mg PO DAILY cholesterol #90 tabs 07/02/23 [Rx Last Taken Unknown] clopidogrel 75 mg tablet (Plavix) 75 mg PO DAILY #90 tabs 07/02/23 [Rx Last Taken Unknown] Allergy/AdvReac Type Severity Reaction Status Date / Time fludrocortisone Allergy Severe ANGIOEDEMA Verified 10/09/23 18:11 [From [facility]] perfume AdvReac Other Verified 10/09/23 18:11 Family History Sister CAD (coronary artery disease) CVA (cerebral vascular accident) Diabetes Myocardial infarction Hx of CABG Mother Cancer Lung CA Surgical History History of cataract surgery History of coronary artery stent placement (07/23/21) History of hand surgery History of left heart catheterization (02/11/22) History of loop recorder (12/13/21) Hx of appendectomy Social History Smoking Status: Never smoker alcohol intake: never substance use type: does not use caffeine: No what type of physical activity do you participate in: none seatbelt use: always do you feel safe at home: Yes ROS ROS ED ROS Narrative A complete review of systems was performed and is negative except as documented in the history of present illness. Some specific details below. Constitutional: No recent fevers or chills. He was feeling fine until this started. EYE: No discharge, visual complaints, or pain. ENT: No difficulty swallowing. No swelling. No pain. No reflux symptoms. CV: See history of present illness. Respiratory: See history of present illness. Mild dyspnea. No coughing. GI: No abdominal pain. Mild transient nausea but no vomiting or diarrhea. No blood in stool. : No frequency dysuria or hematuria. Musculoskeletal: Patient did fall about 4 days ago. He had a little soreness of his left shoulder but he has been working and moving it well. No bruising. Never hit his head. Skin: No rash. Nondiaphoretic. Neuro: No weakness or numbness. Endocrine: No polyuria or polydipsia. EXAM Physical Exam Narrative Exam Narrative: CONSTITUTIONAL: Patient looks mildly uncomfortable. But not toxic. Still carries on normal conversation. Work of breathing is normal. HEENT: No notable trauma. Mucous membranes moist. No sinus tenderness. No indication of pain with swallowing. EYES: No conjunctival injection. No pallor. NECK:No JVD. No stridor. CARDIOVASCULAR: Mildly tachycardic rate. Regular rhythm. No notable murmur. No JVD. No muffled tones and distal pulses are equal. RESPIRATORY: No respiratory distress. Breathing is unlabored. No wheezes. No rhonchi. No rales. No pain with a deep breath. No chest wall tenderness. Oxygen level is normal at 95-96% on room air showing no hypoxia while I am in the room. GASTROINTESTINAL: Not distended. Bowel sounds are normal. No tenderness. No guarding. No rebound. No palpable mass. No bruit is heard. GENITOURINARY: No tenderness over the bladder. No CVA tenderness. MUSCULOSKELETAL: Atraumatic. No peripheral edema. No cord. No tenderness along the deep venous system. No asymmetry. No distended veins. No pallor of extremities. No mottling. NEUROLOGICAL: Patient is alert and appropriate. No focal deficit noted. SKIN: No noted rashes. No diaphoresis at this time. PSYCHIATRIC: Patient is calm. Mood is appropriate. Const Vital Signs: 10/09/23 18:10 10/09/23 18:49 10/09/23 19:02 Temperature 97.4 F L Temperature Source Temporal Pulse Rate 112 H 96 Respiratory Rate 18 Respiratory Effort Normal Non-Labored Blood Pressure 191/81 H 138/73 H Blood Pressure Mean 117 94 Pulse Ox 95 Oxygen Delivery Method Room Air MDM MDM MDM Narrative Medical decision making narrative: My independent interpretation of the patient's single view chest x-ray shows loop recorder but no acute process. Final reading shows no acute disease. Patient's CBC shows minimally low hemoglobin otherwise normal. Patient's electrolytes show no marked abnormalities. His glucose was a bit up at 285. This may be a stress reaction also because of his pain. Patient's magnesium is normal. Patient's first troponin is negative. Because this patient looked very uncomfortable, had subtle lateral new EKG changes, chest pain unrelieved by oral nitroglycerin, I did place him on nitro drip as well as heparin drip. His pain is now gone at 5 mics on nitroglycerin. I discussed the case with Dr. Aris perera for cardiology. I discussed case with hospitalist. Lab Data Attestation: I reviewed the patient's lab results. Labs: Laboratory Results - last 24 hr 10/09/23 18:30 WBC 7.1 RBC 3.87 L Hgb 11.5 L Hct 35.0 L MCV 90.4 MCH 29.7 MCHC 32.9 RDW Std Deviation 42.6 RDW Coeff of Megan 13.0 Plt Count 210 MPV 9.5 Immature Gran % (Auto) 0.400 Neut % (Auto) 63.1 Lymph % (Auto) 25.4 [place] % (Auto) 7.7 Eos % (Auto) 2.7 Baso % (Auto) 0.7 Absolute Neuts (auto) 4.5 Absolute Lymphs (auto) 1.81 Nucleated RBC % 0 PT 12.4 INR 0.9 APTT 27.0 Sodium 138 Potassium 4.4 Chloride 105 Carbon Dioxide 26.0 Anion Gap 7 BUN 31 H Creatinine 1.21 Estim Creat Clear Calc 70.42 Est GFR (MDRD) Af Amer 76 Est GFR (MDRD) Non-Af 63 BUN/Creatinine Ratio 25.6 H Glucose 285 H Calcium 8.6 Magnesium 2.1 Troponin I High Sens 5 Radiography Diagnostic Testing: Clinical Impression(s) from Imaging Studies Chest X-Ray 10/09/23 18:40 IMPRESSION: No acute disease Electronically Signed: Odin Villaseñor MD at 18:53 EST , EKG Initial EKG: Comments: My independent interpretation of the patient's EKG done for chest pain shows a normal sinus rhythm with tachycardic rate at 105. No ventricular ectopy. No indication of acute ST elevation [place]. However there is some very mild lateral ST depression that does look a little different than his prior EKG on 20 Jan 2023. There is some baseline variation also. But I believe there is a subtle difference. Management Discussion w/another healthcare provider: Hospitalist and Documentation Manager Discharge Plan Triage Chief Complaint: Chest Pain ED Provider: Nicko Rabago Dx/Rx/DC Orders Clinical Impression: Hx of diabetes insipidus, Angina at rest, Acute electrocardiogram changes, History of CAD (coronary artery disease), Chest pain Prescriptions: No Action omega 3-dlv-baj-fish oil [Fish Oil] 1,000 mg (120 mg-180 mg) capsule 1,000 mg PO QDAY Patient Comments: 1200 mg PO QDAY metformin 500 mg tablet extended release 24 hr 500 mg PO BID pantoprazole [Protonix] 40 mg tablet,delayed release (DR/EC) 40 mg PO DAILY Qty: 30 11RF ranolazine 500 mg tablet extended release 12 hr 500 mg PO BID Qty: 60 3RF fluticasone propionate 50 mcg/actuation spray,suspension 1 spray intranasal BID Rx Instructions: administer into each nostril aspirin 81 MG tablet 81 mg PO DAILY@0800 lorazepam 0.5 mg Tablet 0.5 mg PO BID PRN (Reason: Anxiety) pioglitazone [Actos] 30 mg Tablet 30 mg PO DAILY ferrous sulfate 325 mg (65 mg iron) tablet 325 mg PO DAILY nitroglycerin 0.4 mg tablet, sublingual 0.4 mg SUBLINGUAL Q5M PRN (Reason: Chest Pain) Qty: 25 6RF Rx Instructions: take one tablet every 5-15 to not exceed 3 tablets atorvastatin 80 mg tablet 80 mg PO DAILY Qty: 90 3RF Hold Instructions: itching all over, no rash clopidogrel [Plavix] 75 mg tablet 75 mg PO DAILY Qty: 90 3RF Hold Instructions: itching all over, no rash Primary Care Provider: Nadir Abdalla Referrals: Nadir Abdalla MD [Primary Care Provider] - Disposition Disposition: Acute Care [facility]
[2023-10-09] MEDS: Aspirin 81 MG TAB.CHEW 324 MG PO (18:31)
[2023-10-09 18:38] LABS: Absolute Lymphocyte Count 1.81 X10^3/uL (0.83-4.51); Absolute Neutrophil Count 4.5 X10^3/uL (2.0-7.7); Basophil# 0.05 X10^3/uL; Basophil% 0.7 % (0-1); Eosinophil# 0.19 X10^3/uL; Eosinophils% 2.7 % (0-5); Hemoglobin 11.5 g/dL (13.0-16.5); Lymphocyte # 1.81 X10^3/ul (0.83-4.51); Lymphocyte % 25.4 % (19-41); Mean Corp Hgb Conc 32.9 g/dL (32-36); Mean Corpuscular Hgb 29.7 pg (27.0-32.0); Mean Corpuscular Volume 90.4 fL (80-94); Mean Platelet Vol. 9.5 fl (6.2-12.0); Monocyte# 0.55 X10^3/uL; Monocyte% 7.7 % (0-10); NRBC Flagged by Analyzer 0 % (0-5); Neutrophil # 4.49 X10^3/uL (2.7-7.7); Neutrophil % 63.1 % (47-70); Platelet Count 210 K/mm3 (150-450); RBC Distribution Width SD 42.6 fl (35.1-43.9); Red Blood Count 3.87 M/mm3 (4.6-6.2); White Blood Count 7.1 K/mm3 (4.4-11.0)
--- NOTE | 2023-10-09 18:40 | RAD_ITS ---
STUDY: X-RAY CHEST REASON FOR EXAM: Male, 68 years old. chest pain TECHNIQUE: Single frontal view of the chest. COMPARISON: Chest x-ray January 20, 2023 FINDINGS: Loop recorder left chest unchanged. The lungs are clear and expanded. There is no demonstrated pleural abnormality. Normal size heart. Normal mediastinum and bonnie. Normal visualized pulmonary arteries. Normal visualized aortic arch and descending thoracic aorta. Normal visualized thoracic spine. Normal visualized ribs, clavicles, and shoulders. There is no demonstrated abnormality of the visualized soft tissue structures of the upper abdomen. RAD/Chest 1 View (Portable) IMPRESSION: No acute disease Electronically Signed: Odin Villaseñor MD at 18:53 EST ,
--- OUTSIDE RECORDS SUMMARY | 2023-10-09 18:40 | XMS RPT_ITS | CCD ---
Author Name Unknown Address [id number] [place] [address] Organization [facility] Care Team Providers Care Cryogenics Repairer Name Role Phone Jorge, Andrew Y Unavailable Unavailable MD Liya, Jd S Unavailable Nidhi RN, Beulah Ye Unavailable Unavailable Nidhi RN, Beulah A Unavailable Unavailable RIAN Bell, Griselda Gary Unavailable Unavailjuan Terrell RN, Beulah A Unavailable Unavailable RIAN Bell, Griselda Gary Unavailable UnavailSELENE Mathew Unavailable Unavailable SELENE WILBURN Unavailable Unavailable Nidhi MODI, Beulah Ye Unavailable Unavailable RIAN Bell, Griselda Gary Unavailable UnavailAndrew Barone Unavailable Unavailable Nadir Grady MD Primary Care Provider [facility], Keti Unavailable [facility], Karen Unavailable Yolanda Dean (Pa) Unavailable Nadir Grady MD Primary Care Provider [facility], Keti Unavailable [facility], Karen Unavailable Yolanda Dean (Pa) Unavailable Nadir Grady MD Primary Care Provider [facility], Keti Unavailable [facility], Karen Unavailable Yolanda Dean (Pa) Unavailable Nadir Grady MD Primary Care Provider [facility], [place]eti Unavailable [facility], Karen Unavailable Yolanda Dean (Pa) Unavailable [phone] HANY JOHNSON Attending Unavaila THAI Williamson Referring Unavailable YSABEL, NADIR A Primary Care Unavailable Yolanda Dean (Camelia) Unavailable [phone] Yolanda Jones Unavailable [phone] [facility], [place]eti Unavailable YSABEL, NADIR A Primary Care Unavailable GAMAL MATHIS Attending Unavailable YSABEL, NADIR A Primary Care Unavailable GAMAL MATHIS Referring Unavailable YSABEL, NADIR A Primary Care Unavailable YSABEL, NADIR A Primary Care Unavailable YSABEL, NADIR A Primary Care Unavailable YSABEL, NADIR A Primary Care Unavailable YSABEL, NADIR A Primary Care Unavailable YSABEL, NADIR A Attending Unavailable YSABEL, NADIR A Primary Care Unavailable YSABEL, NADIR A Primary Care Unavailable JENNA JIM Attending Unavailable YSABEL, NADIR A Primary Care Unavailable MARTHA BOSTON Attending Unavailable MARTHA BOSTON Referring Unavailable YSABEL, NADIR A Primary Care Unavailable JENNIFER CHO Attending Unavailable JENNA JIM Attending Unavailable JENNA JIM Referring Unavailable YSABEL, NADIR A Primary Care Unavailable YSABEL, NADIR A Primary Care Unavailable MILADYS BUTT Referring Unavailable YSABEL, NADIR A Primary Care Unavailable YSABEL, NADIR A Primary Care Unavailable MARTHA BOSTON Referring Unavailable YSABEL, NADIR A Primary Care Unavailable YSABEL, NADIR A Primary Care Unavailable YSABEL, NADIR A Primary Care Unavailable Allergies Allergy Classification Reported Allergen(s) Allergy Type Date of Onset Reaction(s) Facility (20 sources) PERFUMES; Translations: [PERFUMES] drug allergy 01-20-2012 Other: See Comments [facility] Work Phone: (20 sources) Fludrocortisone; Translations: [FLUDROCORTISONE ] Drug Allergy 04-25-2022 Angioedema [facility] Work Phone: Medications Current Medications Medication Drug Class(es) Dates Sig (Normalized) Sig (Original) amitriptyline hydrochloride 50 mg oral tablet (20 sources) Tricyclic Antidepressant Start: 05-01-2022 End: 05-13-2022 amitriptyline (ELAVIL) 50 mg tablet Take 2.5 tabs QHS for a week, then 2 tabs QHS for a week, then 1.5 tabs for a week, then 1 tab QHS for a week then 1/2 a tab for a week, then 1/2 a tab every other day for 3 doses then stop 47 tablet 0 05/01/2022 05/13/2022 Discontinued Completed/Discontinued Medications Medication Drug Class(es) Dates Sig (Normalized) Sig (Original) amantadine hydrochloride 100 mg oral capsule (20 sources) Influenza A M2 Protein Inhibitor Start: 04-25-2022 End: 07-07-2022 take 1 capsule by mouth twice daily amantadine HCl (SYMMETREL) 100 mg capsule Take 1 capsule by mouth twice daily. 60 capsule 2 04/25/2022 07/07/2022 Discontinued (Discontinued by Patient) Problems Active Problems Problem Classification Problem Date Documented Date Episodic/Chronic Adjustment disorders (20 sources) Adjustment disorder with depressed mood; Translations: [Adjustment disorder with depressed mood] Onset: 10-16-2006 08-04-2015 Chronic Allergic reactions (1 source) Contact dermatitis due to Genus Toxicodendron; Translations: [Unspecified contact dermatitis due to plants, except food] Episodic Anxiety disorders (4 sources) Panic disorder; Translations: [Panic disorder [episodic paroxysmal anxiety]] Chronic Coma; stupor; and brain damage (1 source) Loss of consciousness; Translations: [Unspecified coma] Episodic Conditions associated with dizziness or vertigo (1 source) Dizziness; Translations: [Dizziness and giddiness] Episodic Coronary atherosclerosis and other heart disease (20 sources) Atherosclerotic heart disease of [place] coronary artery without angina pectoris; Translations: [Lipid-rich atherosclerosis of coronary artery] Onset: 01-20-2017 02-07-2017 Chronic Deficiency and other anemia (20 sources) Anemia of chronic disease; Translations: [Anemia in other chronic diseases classified elsewhere] Onset: 02-14-2021 02-14-2021 Chronic Deficiency and other anemia (3 sources) Anemia; Translations: [Anemia, unspecified] Episodic Deficiency and other anemia (1 source) Anemia, unspecified; Translations: [Anemia, unspecified type] Onset: 10-14-2022 Episodic Diabetes mellitus with complications (20 sources) Type 2 diabetes mellitus with hyperglycemia; Translations: [Type 2 diabetes mellitus] Onset: 10-07-2016 04-12-2020 Chronic Diabetes mellitus without complication (15 sources) Type 2 diabetes mellitus without complication; Translations: [Type 2 diabetes mellitus without complications] Onset: 01-07-2017 01-07-2017 Chronic Diseases of mouth; excluding dental (2 sources) Oral lesion; Translations: [Other lesions of oral mucosa] 04-01-2023 Episodic Disorders of lipid metabolism (20 sources) Hyperlipidemia; Translations: [Mixed hyperlipidemia] Onset: 08-04-2015 01-07-2017 Chronic Diverticulosis and diverticulitis (2 sources) Diverticular disease; Translations: [Diverticulosis of intestine, part unspecified, without perforation or abscess without bleeding] Onset: 10-29-2022 Chronic Esophageal disorders (20 sources) Gastroesophageal reflux disease without esophagitis; Translations: [Gastro-esophageal reflux disease without esophagitis] Onset: 06-12-2018 06-12-2018 Chronic Essential hypertension (20 sources) Hypertensive disorder; Translations: [Benign essential hypertension] Onset: 01-17-2012 01-07-2017 Chronic Fluid and electrolyte disorders (1 source) Hyponatremia; Translations: [Hypo-osmolality and hyponatremia] Episodic Headache; including migraine (20 sources) Migraine variants; Translations: [Other migraine, not intractable, without status migrainosus] Onset: 07-22-2006 08-27-2021 Chronic Hyperplasia of prostate (20 sources) Benign prostatic hyperplasia; Translations: [Benign prostatic hyperplasia without lower urinary tract symptoms] Onset: 10-03-2016 10-03-2016 Chronic Malaise and fatigue (1 source) Fatigue; Translations: [Other fatigue] Episodic Miscellaneous mental health disorders (20 sources) Primary insomnia; Translations: [Primary insomnia] Onset: 03-02-2019 03-02-2019 Chronic Nonspecific chest pain (20 sources) Chest pain on exertion; Translations: [Chest pain] Onset: 01-07-2017 Resolved: 02-07-2017 01-07-2017 Episodic Occlusion or stenosis of precerebral arteries (20 sources) Bilateral stenosis of carotid arteries; Translations: [Occlusion and stenosis of bilateral carotid arteries] Onset: 08-09-2015 11-01-2021 Chronic Other circulatory disease (5 sources) Orthostatic hypotension; Translations: [Orthostatic hypotension] Episodic Other circulatory disease (1 source) Low blood pressure; Translations: [Hypotension, unspecified] Episodic Other connective tissue disease (1 source) Muscle finding; Translations: [Other specified disorders of muscle] Episodic Other connective tissue disease (1 source) Muscle pain; Translations: [Myalgia, unspecified site] Episodic Other diseases of bladder and urethra (2 sources) Hypertrophy of bladder; Translations: [Other specified disorders of bladder] Chronic Other injuries and conditions due to external causes (4 sources) Injury of head; Translations: [Unspecified injury of head, sequela] Episodic Other injuries and conditions due to external causes (1 source) Injury of left foot; Translations: [Unspecified injury of left foot, initial encounter] Episodic Other lower respiratory disease (1 source) Dyspnea; Translations: [Shortness of breath] 06-19-2023 Episodic Other nervous system disorders (20 sources) Neuropathy; Translations: [Polyneuropathy, unspecified] Onset: 06-12-2018 06-12-2018 Chronic Other nervous system disorders (1 source) Numbness of face; Translations: [Anesthesia of skin] Episodic Other nervous system disorders (1 source) Tremor; Translations: [Tremor, unspecified] Episodic Other nutritional; endocrine; and metabolic disorders (5 sources) Abnormal weight loss; Translations: [Abnormal weight loss] Episodic Other skin disorders (1 source) Eruption; Translations: [Rash and other nonspecific skin eruption] 03-10-2023 Episodic Other upper respiratory infections (20 sources) Chronic sinusitis; Translations: [Chronic sinusitis, unspecified] 08-04-2015 Chronic Residual codes; unclassified (1 source) Left before being seen; Translations: [Procedure and treatment not carried out due to patient leaving prior to being seen by health care provider] 06-19-2023 Episodic Spondylosis; intervertebral disc disorders; other back problems (20 sources) Degeneration of cervical intervertebral disc; Translations: [Other cervical disc degeneration, unspecified cervical region] Onset: 01-20-2012 10-03-2016 Chronic Spondylosis; intervertebral disc disorders; other back problems (20 sources) Low back pain; Translations: [Lumbago] Onset: 02-09-2010 08-27-2021 Episodic Unclassified (3 sources) Placement of stent in coronary artery ; Translations: [Presence of coronary angioplasty implant and graft] Onset: 02-07-2017 02-07-2017 Unclassified (1 source) Unknown / UNK(Unknown) Onset: 10-07-2016 Unclassified (3 sources) Long-term drug therapy; Translations: [Other mcfp (current) drug therapy] Onset: 01-07-2017 01-07-2017 Past or Other Problems Problem Classification Problem Date Documented Date Episodic/Chronic Abdominal hernia (2 sources) Hiatal hernia; Translations: [Diaphragmatic hernia without obstruction or gangrene] Onset: 10-29-2022 Episodic Administrative/social admission (20 sources) Illiteracy; Translations: [Illiteracy and low-level literacy] Onset: 10-09-2020 10-09-2020 Episodic Deficiency and other anemia (20 sources) Iron deficiency anemia; Translations: [Iron deficiency anemia, unspecified] Onset: 08-21-2022 Episodic Deficiency and other anemia (2 sources) Iron deficiency anemia, unspecified; Translations: [Iron deficiency anemia, unspecified iron deficiency anemia type] Onset: 08-21-2022 Episodic Diabetes mellitus without complication (20 sources) Hyperglycemia; Translations: [Hyperglycemia, unspecified] Onset: 06-26-2022 Episodic Gastritis and duodenitis (2 sources) Gastritis; Translations: [Other gastritis without bleeding] Onset: 10-29-2022 Episodic Headache; including migraine (20 sources) Cervicogenic headache; Translations: [Cervicogenic headache] Onset: 10-16-2015 07-09-2016 Episodic Other aftercare (9 sources) Other intermodal customer service (current) drug therapy; Translations: [Other mcfp (current) drug therapy] Onset: 01-07-2017 01-07-2017 Episodic Other aftercare (20 sources) Patient encounter status; Translations: [Other intermodal customer service (current) drug therapy] Onset: 03-02-2019 11-08-2021 Episodic Other circulatory disease (15 sources) Cardiovascular stress test abnormal; Translations: [Abnormal result of other cardiovascular function study] Onset: 01-07-2017 Resolved: 02-07-2017 02-07-2017 Episodic Other circulatory disease (1 source) Orthostatic hypotension; Translations: [Orthostatic hypotension] Onset: 11-21-2022 Episodic Other connective tissue disease (20 sources) Adhesive capsulitis of shoulder; Translations: [Adhesive capsulitis of unspecified shoulder] Onset: 12-04-2007 10-03-2016 Episodic Other connective tissue disease (20 sources) Pain in bilateral legs; Translations: [Pain in right leg] Onset: 06-04-2017 10-30-2018 Episodic Other infections; including parasitic (20 sources) Personal history of other infectious and parasitic diseases; Translations: [History of COVID-19] Onset: 06-18-2021 11-08-2021 Episodic Other inflammatory condition of skin (20 sources) Seborrheic dermatitis; Translations: [Seborrheic dermatitis, unspecified] Onset: 08-04-2015 10-03-2016 Episodic Other injuries and conditions due to external causes (1 source) Unspecified injury of left foot, initial encounter; Translations: [Foot injury, left, initial encounter] Onset: 09-23-2022 Episodic Other injuries and conditions due to external causes (1 source) Personal history of other (healed) physical injury and trauma; Translations: [Hx of head injury] Onset: 09-19-2022 Episodic Other male genital disorders (20 sources) Disorder of prostate; Translations: [Disorder of prostate, unspecified] Onset: 10-03-2016 10-03-2016 Episodic Other male genital disorders (1 source) Disorder of prostate, unspecified; Translations: [Disorder of prostate] Onset: 10-03-2016 Episodic Other nervous system disorders (1 source) Anesthesia of skin; Translations: [Facial numbness] Onset: 09-19-2022 Episodic Other non-traumatic joint disorders (20 sources) Pain in right knee; Translations: [Pain in joint, lower leg] Onset: 10-10-2016 06-04-2017 Episodic Other screening for suspected conditions (not mental disorders or infectious disease) (20 sources) Other specified abnormal findings of blood chemistry; Translations: [Other abnormal blood chemistry] Onset: 08-05-2015 10-30-2018 Episodic Syncope (5 sources) Syncope; Translations: [Syncope and collapse] Onset: 11-21-2022 Episodic Results Test Name Value Interpretation Reference Range Facil ity Vital Signs Date Time Vital Sign Value Performing Clinician Facility 06-26-2023 09:26-0400 Body temperature 97.81 [degF] Fer Merrill APRN.CNP Work Phone: [facility] 06-26-2023 09:26-0400 Body weight 84.46 kg Fer Merrill PICTURE HANGER.[employer]BE[employer] REMOVAL SUPERVISOR Work Phone: [facility] 06-26-2023 09:26-0400 Diastolic blood pressure 80 mm[Hg] Fer Merrill PICTURE HANGER.[employer]BE[employer] REMOVAL SUPERVISOR Work Phone: [facility] 06-26-2023 09:26-0400 Heart rate 72 /min Fer Merrill PICTURE HANGER.[employer]BE[employer] REMOVAL SUPERVISOR Work Phone: [facility] 06-26-2023 09:26-0400 Respiratory rate 16 /min Fer Merrill PICTURE HANGER.[employer]BEST[employer] REMOVAL SUPERVISOR Work Phone: [facility] 06-26-2023 09:26-0400 SaO2% (BldA) [Mass fraction] 97 % Fer Merrill PICTURE HANGER.[employer]BEST[employer] REMOVAL SUPERVISOR Work Phone: [facility] 06-26-2023 09:26-0400 Systolic blood pressure 142 mm[Hg] Fer Merrill PICTURE HANGER.[employer]BE[employer] REMOVAL SUPERVISOR Work Phone: [facility] 04-01-2023 07:38-0400 Body temperature 97.5 [degF] Blanca Athy PA-C Work Phone: [facility] 04-01-2023 07:38-0400 Body weight 78.93 kg Blanca Athy PA-C Work Phone: [facility] 04-01-2023 07:38-0400 Diastolic blood pressure 74 mm[Hg] Blanca Athy PA-C Work Phone: [facility] 04-01-2023 07:38-0400 Heart rate 68 /min Blanca Athy PA-C Work Phone: [facility] 04-01-2023 07:38-0400 Respiratory rate 16 /min Blanca Athy PA-C Work Phone: [facility] 04-01-2023 07:38-0400 SaO2% (BldA) [Mass fraction] 98 % Blanca Athy PA-C Work Phone: [facility] 04-01-2023 07:38-0400 Systolic blood pressure 142 mm[Hg] Blanca Athy PA-C Work Phone: [facility] 03-10-2023 12:40-0400 Body temperature 98.01 [degF] Ute Rl PICTURE HANGER.[employer]BE[employer] REMOVAL SUPERVISOR Work Phone: [facility] 03-10-2023 12:40-0400 Body weight 79.29 kg Ute Rl PICTURE HANGER.[employer]BESTOS REMOVAL SUPERVISOR Work Phone: [facility] 03-10-2023 12:40-0400 Diastolic blood pressure 78 mm[Hg] Ute Rl PICTURE HANGER.[employer]BEST[employer] REMOVAL SUPERVISOR Work Phone: [facility] 03-10-2023 12:40-0400 Heart rate 71 /min Ute Rl PICTURE HANGER.[employer]BEST[employer] REMOVAL SUPERVISOR Work Phone: [facility] 03-10-2023 12:40-0400 Respiratory rate 18 /min Ute Rl PICTURE HANGER.[employer]BESTOS REMOVAL SUPERVISOR Work Phone: [facility] 03-10-2023 12:40-0400 SaO2% (BldA) [Mass fraction] 99 % Ute Rl PICTURE HANGER.[employer]BESTOS REMOVAL SUPERVISOR Work Phone: [facility] 03-10-2023 12:40-0400 Systolic blood pressure 136 mm[Hg] Ute Rl PICTURE HANGER.[employer]BE[employer] REMOVAL SUPERVISOR Work Phone: [facility] 11-28-2022 12:33-0400 Body height 175 cm Martha DENISE-C Work Phone: [facility] 11-28-2022 12:33-0400 Body temperature 98.1 [degF] Martha Boston PA-C Work Phone: [facility] 11-28-2022 12:33-0400 Body weight 78.47 kg Martha Boston PA-C Work Phone: [facility] 11-28-2022 12:33-0400 Diastolic blood pressure 66 mm[Hg] Martha Boston PA-C Work Phone: [facility] 11-28-2022 12:33-0400 Heart rate 66 /min Martha Boston PA-C Work Phone: [facility] 11-28-2022 12:33-0400 Respiratory rate 16 /min Martha Boston PA-C Work Phone: [facility] 11-28-2022 12:33-0400 Systolic blood pressure 136 mm[Hg] Martha Boston PA-C Work Phone: [facility] 11-21-2022 09:39-0400 Body temperature 97.5 [degF] Jenna Dahlhausen PICTURE HANGER.[employer]BE[employer] REMOVAL SUPERVISOR Work Phone: [facility] 11-21-2022 09:39-0400 Body weight 79.92 kg Jenna Dahlhausen PICTURE HANGER.[employer]BE[employer] REMOVAL SUPERVISOR Work Phone: [facility] 11-21-2022 09:39-0400 Diastolic blood pressure 70 mm[Hg] Jenna Dahlhausen PICTURE HANGER.[employer]BE[employer] REMOVAL SUPERVISOR Work Phone: [facility] 11-21-2022 09:39-0400 Heart rate 73 /min Jenna Dahlhausen PICTURE HANGER.[employer]BE[employer] REMOVAL SUPERVISOR Work Phone: [facility] 11-21-2022 09:39-0400 Respiratory rate 18 /min Jenna Dahlhausen PICTURE HANGER.[employer]BE[employer] REMOVAL SUPERVISOR Work Phone: [facility] 11-21-2022 09:39-0400 SaO2% (BldA) [Mass fraction] 98 % Jenna Dahlhausen PICTURE HANGER.[employer]BE[employer] REMOVAL SUPERVISOR Work Phone: [facility] 11-21-2022 09:39-0400 Systolic blood pressure 115 mm[Hg] Jenna Dahlhausen PICTURE HANGER.[employer]BE[employer] REMOVAL SUPERVISOR Work Phone: [facility] 11-12-2022 11:29-0400 Body temperature 97.3 [degF] Fer Merrill PICTURE HANGER.[employer]BE[employer] REMOVAL SUPERVISOR Work Phone: [facility] 11-12-2022 11:29-0400 Body weight 80.83 kg Fer Merrill PICTURE HANGER.[employer]BE[employer] REMOVAL SUPERVISOR Work Phone: [facility] 11-12-2022 11:29-0400 Diastolic blood pressure 78 mm[Hg] Fer Merrill PICTURE HANGER.[employer]BE[employer] REMOVAL SUPERVISOR Work Phone: [facility] 11-12-2022 11:29-0400 Heart rate 86 /min Fer Merrill PICTURE HANGER.[employer]BE[employer] REMOVAL SUPERVISOR Work Phone: [facility] 11-12-2022 11:29-0400 Respiratory rate 18 /min Fer Merrill PICTURE HANGER.[employer]BESTOS REMOVAL SUPERVISOR Work Phone: [facility] 11-12-2022 11:29-0400 SaO2% (BldA) [Mass fraction] 97 % Fer Merrill PICTURE HANGER.[employer]BE[employer] REMOVAL SUPERVISOR Work Phone: [facility] 11-12-2022 11:29-0400 Systolic blood pressure 142 mm[Hg] Fer Merrill PICTURE HANGER.[employer]BE[employer] REMOVAL SUPERVISOR Work Phone: [facility] 10-29-2022 16:10-0500 Body height 177.8 cm Jennifer Holliday PA-C Work Phone: [facility] 10-29-2022 16:10-0500 Body temperature 97.9 [degF] Jennifer Savanah PA-C Work Phone: [facility] 10-29-2022 16:10-0500 Body weight 81.19 kg Jennifer Savanah PA-C Work Phone: [facility] 10-29-2022 16:10-0500 Diastolic blood pressure 64 mm[Hg] Jennifer Savanah PA-C Work Phone: [facility] 10-29-2022 16:10-0500 Heart rate 82 /min Jennifer Savanah PA-C Work Phone: [facility] 10-29-2022 16:10-0500 SaO2% (BldA) [Mass fraction] 96 % Jennifer Holliday PA-C Work Phone: [facility] 10-29-2022 16:10-0500 Systolic blood pressure 124 mm[Hg] Jennifer Savanah PA-C Work Phone: [facility] 10-14-2022 12:30-0500 Diastolic blood pressure 81 mm[Hg] Thai Santiago MD Work Phone: [facility] 10-14-2022 12:30-0500 Heart rate 82 /min Thai Santiago MD Work Phone: [facility] 10-14-2022 12:30-0500 Respiratory rate 20 /min Thai Santiago MD Work Phone: [facility] 10-14-2022 12:30-0500 SaO2% (BldA) [Mass fraction] 97 % Thai Santiago MD Work Phone: [facility] 10-14-2022 12:30-0500 Systolic blood pressure 175 mm[Hg] Thai Santiago MD Work Phone: [facility] 10-14-2022 11:55-0500 Body temperature 97.5 [degF] Thai Santiago MD Work Phone: [facility] 10-14-2022 11:05-0500 Body height 177.8 cm Thai Santiago MD Work Phone: [facility] 10-14-2022 11:05-0500 Body weight 78.93 kg Thai Santiago MD Work Phone: [facility] 10-05-2022 11:43-0500 Body weight 78.93 kg Nadir Grady MD Work Phone: [facility] 10-05-2022 11:43-0500 Diastolic blood pressure 68 mm[Hg] Nadir Grady MD Work Phone: [facility] 10-05-2022 11:43-0500 Heart rate 77 /min Nadir Grady MD Work Phone: [facility] 10-05-2022 11:43-0500 Respiratory rate 16 /min Nadir Grady MD Work Phone: [facility] 10-05-2022 11:43-0500 SaO2% (BldA) [Mass fraction] 96 % Nadir Grady MD Work Phone: [facility] 10-05-2022 11:43-0500 Systolic blood pressure 110 mm[Hg] Nadir Grady MD Work Phone: [facility] 09-23-2022 13:25-0500 Body temperature 97.81 [degF] Miladys Praisler-Wood PICTURE HANGER.[employer]BE[employer]OS REMOVAL SUPERVISOR Work Phone: [facility] 09-23-2022 13:25-0500 Body weight 81.1 kg Miladys Praisler-Wood PICTURE HANGER.[employer]BESTOS REMOVAL SUPERVISOR Work Phone: [facility] 09-23-2022 13:25-0500 Diastolic blood pressure 72 mm[Hg] Miladys Praisler-Wood PICTURE HANGER.[employer]BESTOS REMOVAL SUPERVISOR Work Phone: [facility] 09-23-2022 13:25-0500 Heart rate 75 /min Miladys Praisler-Wood PICTURE HANGER.[employer]BESTOS REMOVAL SUPERVISOR Work Phone: [facility] 09-23-2022 13:25-0500 Respiratory rate 21 /min Miladys Praisler-Wood PICTURE HANGER.[employer]BEST[employer] REMOVAL SUPERVISOR Work Phone: [facility] 09-23-2022 13:25-0500 SaO2% (BldA) [Mass fraction] 98 % Miladys Praisler-Wood PICTURE HANGER.[employer]BESTOS REMOVAL SUPERVISOR Work Phone: [facility] 09-23-2022 13:25-0500 Systolic blood pressure 152 mm[Hg] Miladys Praisler-Wood PICTURE HANGER.[employer]BESTOS REMOVAL SUPERVISOR Work Phone: [facility] 09-19-2022 15:25-0500 Body temperature 97.7 [degF] Jenna Dahlhausen PICTURE HANGER.[employer]BE[employer]OS REMOVAL SUPERVISOR Work Phone: [facility] 09-19-2022 15:25-0500 Body weight 78.65 kg Jenna Dahlhausen PICTURE HANGER.[employer]BESTOS REMOVAL SUPERVISOR Work Phone: [facility] 09-19-2022 15:25-0500 Diastolic blood pressure 82 mm[Hg] Jenna Dahlhausen PICTURE HANGER.[employer]BESTOS REMOVAL SUPERVISOR Work Phone: [facility] 09-19-2022 15:25-0500 Heart rate 76 /min Jenna Dahlhausen PICTURE HANGER.[employer]BE[employer] REMOVAL SUPERVISOR Work Phone: [facility] 09-19-2022 15:25-0500 Respiratory rate 16 /min Jenna Childsen PICTURE HANGER.[employer]BESTOS REMOVAL SUPERVISOR Work Phone: [facility] 09-19-2022 15:25-0500 SaO2% (BldA) [Mass fraction] 95 % Jennaben Childsen PICTURE HANGER.ASBESTOS REMOVAL SUPERVISOR Work Phone: [facility] 09-19-2022 15:25-0500 Systolic blood pressure 128 mm[Hg] Jennacamila Dowlingkeyapedroben PICTURE HANGER.[employer]BESTOS REMOVAL SUPERVISOR Work Phone: [facility] 08-21-2022 09:03-0500 Body weight 78.02 kg Nadir Grady MD Work Phone: [facility] 08-21-2022 09:03-0500 Diastolic blood pressure 74 mm[Hg] Nadir Grady MD Work Phone: [facility] 08-21-2022 09:03-0500 Heart rate 76 /min Ndair Grady MD Work Phone: [facility] 08-21-2022 09:03-0500 Respiratory rate 16 /min Nadir Grady MD Work Phone: [facility] 08-21-2022 09:03-0500 Systolic blood pressure 128 mm[Hg] Nadir Grady MD Work Phone: [facility] 08-05-2022 12:56-0500 Body height 177.8 cm Mike Lucero MD Work Phone: [facility] 08-05-2022 12:56-0500 Body weight 77.11 kg Mike Lucero MD Work Phone: [facility] 08-05-2022 12:56-0500 Diastolic blood pressure 79 mm[Hg] Mike Lucero MD Work Phone: [facility] 08-05-2022 12:56-0500 Heart rate 73 /min Mike Lucero MD Work Phone: [facility] 08-05-2022 12:56-0500 Respiratory rate 18 /min Mike Lucero MD Work Phone: [facility] 08-05-2022 12:56-0500 Systolic blood pressure 159 mm[Hg] Mike Lucero MD Work Phone: [facility] 07-30-2022 15:28-0500 Body weight 77.11 kg Gamal Mathis PICTURE HANGER.[employer] REMOVAL SUPERVISOR Work Phone: [facility] 07-30-2022 15:28-0500 Diastolic blood pressure 70 mm[Hg] Gamal Mathis PICTURE HANGER.[employer]BE[employer] REMOVAL SUPERVISOR Work Phone: [facility] 07-30-2022 15:28-0500 Heart rate 78 /min Gamal Mathis PICTURE HANGER.[employer]BE[employer] REMOVAL SUPERVISOR Work Phone: [facility] 07-30-2022 15:28-0500 Respiratory rate 16 /min Gamal Mathis PICTURE HANGER.[employer]BE[employer] REMOVAL SUPERVISOR Work Phone: [facility] 07-30-2022 15:28-0500 Systolic blood pressure 136 mm[Hg] Gamal Mathis PICTURE HANGER.[employer]BE[employer] REMOVAL SUPERVISOR Work Phone: [facility] 06-27-2022 09:25-0400 Body height 177.8 cm Thai Santiago MD Work Phone: [facility] 06-27-2022 09:25-0400 Body temperature 97.39 [degF] Thai Santiago MD Work Phone: [facility] 06-27-2022 09:25-0400 Body weight 71.67 kg Thai Santiago MD Work Phone: [facility] 06-27-2022 09:25-0400 Diastolic blood pressure 62 mm[Hg] Thai Santiago MD Work Phone: [facility] 06-27-2022 09:25-0400 Heart rate 80 /min Thai Santiago MD Work Phone: [facility] 06-27-2022 09:25-0400 SaO2% (BldA) [Mass fraction] 97 % Thai Santiago MD Work Phone: [facility] 06-27-2022 09:25-0400 Systolic blood pressure 110 mm[Hg] Thai Santiago MD Work Phone: [facility] 06-25-2022 07:59-0400 Body temperature 98.71 [degF] Martha Boston PA-C Work Phone: [facility] 06-25-2022 07:59-0400 Body weight 70.76 kg Martha Boston PA-C Work Phone: [facility] 06-25-2022 07:59-0400 Diastolic blood pressure 50 mm[Hg] Martha Boston PA-C Work Phone: [facility] 06-25-2022 07:59-0400 Heart rate 76 /min Martha Boston PA-C Work Phone: [facility] 06-25-2022 07:59-0400 Respiratory rate 16 /min Martha Boston PA-C Work Phone: [facility] 06-25-2022 07:59-0400 Systolic blood pressure 80 mm[Hg] Martha Boston PA-C Work Phone: [facility] 05-13-2022 07:45-0400 Body temperature 98.1 [degF] Martha Boston PA-C Work Phone: [facility] 05-13-2022 07:45-0400 Body weight 73.48 kg Martha Boston PA-C Work Phone: [facility] 05-13-2022 07:45-0400 Diastolic blood pressure 66 mm[Hg] Martha Boston PA-C Work Phone: [facility] 05-13-2022 07:45-0400 Heart rate 72 /min Martha Boston PA-C Work Phone: [facility] 05-13-2022 07:45-0400 Respiratory rate 16 /min Martha Boston PA-C Work Phone: [facility] 05-13-2022 07:45-0400 Systolic blood pressure 138 mm[Hg] Martha Boston PA-C Work Phone: [facility] 04-25-2022 13:14-0400 Body temperature 97.81 [degF] Rin Gagnon PICTURE HANGER.[employer] REMOVAL SUPERVISOR Work Phone: [facility] 04-25-2022 13:14-0400 Body weight 79.52 kg Rin Goetzh PICTURE HANGER.[employer]BE[employer] REMOVAL SUPERVISOR Work Phone: [facility] 04-25-2022 13:14-0400 Diastolic blood pressure 70 mm[Hg] Rin Latiferich PICTURE HANGER.[employer] REMOVAL SUPERVISOR Work Phone: [facility] 04-25-2022 13:14-0400 Heart rate 86 /min Rin Goetzh PICTURE HANGER.[employer] REMOVAL SUPERVISOR Work Phone: [facility] 04-25-2022 13:14-0400 Respiratory rate 16 /min Rin Goetzh PICTURE HANGER.[employer]BE[employer] REMOVAL SUPERVISOR Work Phone: [facility] 04-25-2022 13:14-0400 SaO2% (BldA) [Mass fraction] 97 % Rin Goetzh PICTURE HANGER.[employer]BE[employer] REMOVAL SUPERVISOR Work Phone: [facility] 04-25-2022 13:14-0400 Systolic blood pressure 109 mm[Hg] Rin Goetzh PICTURE HANGER.[employer]BE[employer] REMOVAL SUPERVISOR Work Phone: [facility] 04-19-2022 08:09-0400 Body temperature 98.2 [degF] Martha Boston PA-C Work Phone: [facility] 04-19-2022 08:09-0400 Body weight 79.83 kg Martha Boston PA-C Work Phone: [facility] 04-19-2022 08:09-0400 Diastolic blood pressure 68 mm[Hg] Martha Boston PA-C Work Phone: [facility] 04-19-2022 08:09-0400 Heart rate 96 /min Martha Boston PA-C Work Phone: [facility] 04-19-2022 08:09-0400 Respiratory rate 18 /min Martha Boston PA-C Work Phone: [facility] 04-19-2022 08:09-0400 Systolic blood pressure 118 mm[Hg] Martha DENISE-C Work Phone: [facility] 02-07-2022 07:50-0400 Body temperature 97.81 [degF] Jenna Dahlhausen PICTURE HANGER.[employer]BE[employer]OS REMOVAL SUPERVISOR Work Phone: [facility] 02-07-2022 07:50-0400 Body weight 78.93 kg Jenna Dahlhausen PICTURE HANGER.[employer]BE[employer] REMOVAL SUPERVISOR Work Phone: [facility] 02-07-2022 07:50-0400 Diastolic blood pressure 60 mm[Hg] Jenna Dahlhausen PICTURE HANGER.[employer]BE[employer]OS REMOVAL SUPERVISOR Work Phone: [facility] 02-07-2022 07:50-0400 Heart rate 83 /min Jenna Dahlhausen PICTURE HANGER.[employer]BESTOS REMOVAL SUPERVISOR Work Phone: [facility] 02-07-2022 07:50-0400 Respiratory rate 18 /min Jenna Dahlhausen PICTURE HANGER.[employer]BE[employer]OS REMOVAL SUPERVISOR Work Phone: [facility] 02-07-2022 07:50-0400 SaO2% (BldA) [Mass fraction] 99 % Jenna Dahlhausen PICTURE HANGER.[employer]BESTOS REMOVAL SUPERVISOR Work Phone: [facility] 02-07-2022 07:50-0400 Systolic blood pressure 122 mm[Hg] Jenna Dahlhausen PICTURE HANGER.[employer]BE[employer]OS REMOVAL SUPERVISOR Work Phone: [facility] 02-07-2017 09:55-0400 BMI (Body Mass Index) 26.78 kg/m2 [facility] Work Phone: 02-07-2017 09:55-0400 BP Diastolic 62 mm[Hg] Jd Kern MD [facility] Work Phone: 02-07-2017 09:55-0400 BP Systolic 108 mm[Hg] Jd Kern MD [facility] Work Phone: 02-07-2017 09:55-0400 Height 180.34 cm Jd Kern MD [facility] Work Phone: 02-07-2017 09:55-0400 Pulse (Heart Rate) 78 /min Jd Kern MD [facility] Work Phone: 02-07-2017 09:55-0400 Respiratory Rate 18 /min Jd Kern MD [facility] Work Phone: 02-07-2017 09:55-0400 Weight 87.09 kg Jd Kern MD [facility] Work Phone: 01-08-2017 14:17-0400 Heart rate 81 /min Beulah Terrell RN [facility] Work Phone: 01-08-2017 13:55-0400 BMI (Body Mass Index) 27.05 kg/m2 [facility] Work Phone: 01-08-2017 13:55-0400 Body weight 88 kg Griselda Bell RN [facility] Work Phone: 01-08-2017 13:55-0400 BP Diastolic 60 mm[Hg] Beulah Terrell RN [facility] Work Phone: 01-08-2017 13:55-0400 BP Systolic 100 mm[Hg] Beulah Terrell RN [facility] Work Phone: 01-08-2017 13:55-0400 Height 180.34 cm Beulah Terrell RN [facility] Work Phone: 01-08-2017 13:55-0400 Pulse (Heart Rate) 81 /min Beulah Terrell RN [facility] Work Phone: 01-08-2017 13:55-0400 Respiratory Rate 20 /min Beulah Terrell RN [facility] Work Phone: 01-08-2017 13:55-0400 Weight 88 kg Beulah Terrell RN [facility] Work Phone: Encounters Encounter Date Encounter Type Care Provider Facility Start: 09-03-2023 End: 09-03-2023 ambulatory NADIR GRADY Facility:[facility] Start: 06-26-2023 End: 06-26-2023 Patient encounter procedure Fer Merrill [employer]BE[employer] REMOVAL SUPERVISOR Work Phone: [facility] Procedures Date Procedure Procedure Detail Performing Clinician Start: 10-14-2022 Esophagogastroduodenoscopy transoral diagnostic Thai Santiago MD Work Phone: Start: 10-14-2022 Colonoscopy flx dx w/collj spec when pfrmd Thai Santiago MD Work Phone: Start: 10-14-2022 End: 10-14-2022 Gluc bld gluc mntr dev cleared fda spec home use Hany Johnson MD Work Phone: Start: 10-14-2022 Colonoscopy Thai Santiago MD Work Phone: Start: 08-05-2022 Urnls dip stick/tablet rgnt auto w/o microscopy Mike Lucero MD Work Phone: Start: 07-09-2022 Ct abdomen & pelvis w/contrast material Martha ABRAHAMC Work Phone: Start: 07-09-2022 Ct thorax w/contrast material Martha pichardo PA-C Work Phone: Start: 07-01-2022 Us abdominal real time w/image limited Martha Boston PA-C Work Phone: Start: 05-13-2022 INFLUENZA SEASONAL QUADRIVALENT HIGH DOSE AGE 65+ Martha ABRAHAMC Work Phone: Start: 04-17-2022 Lipid panel [facility] Provider Start: 03-19-2022 Ct head/brain w/o contrast material Kulwinder Jim APRN.CNP Work Phone: Start: 02-07-2017 End: 02-10-2017 *Hepatic Function Panel Abdirahman Solano Start: 02-07-2017 End: 02-07-2017 Follow Up Appt 6 months Abdirahman Solano Start: 02-07-2017 End: 02-10-2017 Lipid panel [AGGREGATE] Abdirahman Solano Start: 02-07-2017 End: 02-07-2017 MMM Jd Kern MD Start: 01-20-2017 History of placement of stent for coronary artery disease S/P drug eluting coronary stent placement Nadir Grady MD Work Phone: Start: 01-08-2017 End: 01-08-2017 Documentation of current medications Griselda Bell RN Start: 01-08-2017 End: 01-08-2017 *BMP Jd Kern MD Start: 01-08-2017 End: 01-08-2017 CBC W Auto Differential panel - Blood Jd Kern MD Start: 01-08-2017 End: 02-10-2017 Chest x-ray Jd Kern MD Start: 01-08-2017 End: 01-08-2017 Coagulation factor induced.INR assay in platelet poor plasma Jd Kern MD Start: 01-08-2017 End: 02-07-2017 WOOD TURNER Jd Kern MD Start: 01-08-2017 End: 01-16-2017 Echocardiography Jd Kern MD Start: 01-08-2017 End: 02-10-2017 Electrocardiogram, complete Jd Locke i, MD Start: 01-08-2017 End: 02-07-2017 Follow Up Appt 3 months Abdirahman Solano Start: 01-08-2017 End: 02-10-2017 Left Heart Cath Jd Kern MD Plan of Treatment Date Care Activity Detail Author Start: 10-14-2032 Colonoscopy COLONOSCOPY [facility] Start: 10-14-2032 COLORECTAL CANCER SCREENING COLORECTAL CANCER SCREENING [facility] Start: 03-01-2031 Urine microalbumin profile [facility] Start: 10-18-2029 Urine microalbumin profile DTA P,TDAP,TD (3 - Td or Tdap) [facility] Start: 11-02-2026 PROSTATE CANCER SCRE ENING DISCUSSION PROSTATE CANCER SCREENING DISCUSSION [facility] Start: 06-17-2024 Annual PCP Team [employer] cielo Disease Visit Annual PCP Team Chronic Disease Visit [facility] Start: 06-17-2024 BP Controlled (<130/80) BP Controlle d (<130/80) [facility] Start: 06-17-2024 Hepatitis B surface antibody level LDL Cholesterol [facility] Start: 02-18-2024 BP CONTROLLED (<130/80) BP CONTROLLE D (<130/80) [facility] Start: 12-17-2023 Hemoglobin A1c/Hemoglobin.total in Blood HbA1C [facility] Start: 11-29-2023 ANNUAL PCP TEAM HOOKING MACHINE OPERATOR CIELO DISEASE VISIT ANNUAL PCP TEAM CHRONIC DISEASE VISIT [facility] Start: 11-29-2023 Hepatitis B screening URINE AL BUMIN:CREATININE RATIO [facility] Start: 11-29-2023 Hepatitis B surface antibody level LDL CHOLESTEROL [facility] Start: 11-22-2023 BP CONTROLLED (<130/80) BP CONTROLLE D (<130/80) [facility] Start: 10-29-2023 BP CONTROLLED (<130/80) BP CONTROLLE D (<130/80) [facility] Start: 10-14-2023 Colonoscopy COLONOSCOPY [facility] Start: 10-05-2023 BP CONTROLLED (<130/80) BP CONTROLLE D (<130/80) [facility] Start: 10-04-2023 ANNUAL PCP TEAM HOOKING MACHINE OPERATOR CIELO DISEASE VISIT ANNUAL PCP TEAM CHRONIC DISEASE VISIT [facility] Start: 08-21-2023 ANNUAL PCP TEAM HOOKING MACHINE OPERATOR CIELO DISEASE VISIT ANNUAL PCP TEAM CHRONIC DISEASE VISIT [facility] Start: 08-21-2023 BP CONTROLLED (<130/80) BP CONTROLLE D (<130/80) [facility] Start: 08-21-2023 COVID-19 VACCINE (2 - Pfizer series) COVID-19 VACCINE (2 - Pfizer series) [facility] Immunizations Immunization Date Immunization Notes Care Provider Dulce adamson 05-15-2023 respiratory syncytia l virus (RSV) vaccine, bivalent (ABRYSVO) Nadir Grady MD Work Phone: [facility] 05-15-2023 Seasonal trivalent influenza vaccine, adjuvanted, preservative free Nadir Grady MD Work Phone: [facility] 05-13-2022 influenza, high-dose , quadrivalent vaccine (FLUZONE HIGH DOSE QUADRIVALENT) Martha Boston PA-C Work Phone: [facility] 05-13-2022 pneumococcal (PCV20) vaccine, 20 valent (PREVNAR 20) Martha Boston PA-C Work Phone: [facility] 05-13-2022 pneumococcal Conjuga te, unspecified formulation Martha Boston PA-C Work Phone: [facility] Work Phone: 03-01-2021 tetanus toxoid, redu radha diphtheria toxoid, and acellular pertussis vaccine, adsorbed Martha Boston PA-C Work Phone: [facility] 08-10-2020 zoster vaccine recombinant Nadir Grady MD Work Phone: [facility] 04-17-2020 influenza, high dose seasonal, preservative-free Nadir Grady MD Work Phone: [facility] 04-17-2020 zoster vaccine recombinant Nadir Grady MD Work Phone: [facility] 10-18-2019 pneumococcal conjuga te vaccine, 13 valent Nadir Grady MD Work Phone: [facility] 10-18-2019 tetanus toxoid, redu radha diphtheria toxoid, and acellular pertussis vaccine, adsorbed Nadir Grady MD Work Phone: [facility] 06-17-2019 influenza, high dose seasonal, preservative-free Nadir Grady MD Work Phone: [facility] 06-12-2018 influenza, high dose seasonal, preservative-free Nadir Grady MD Work Phone: [facility] 06-12-2018 pneumococcal conjuga te vaccine, 13 valent Nadir Grady MD Work Phone: [facility] 05-04-2017 influenza, injectabl e, quadrivalent, contains preservative Nadir Grady MD Work Phone: [facility] Work Phone: 02-06-2017 pneumococcal polysaccharide vaccine, 23 valent Nadir Grady MD Work Phone: [facility] 06-18-2016 influenza virus vacc ine, unspecified formulation Nadir Grady MD Work Phone: [facility] Work Phone: 07-10-2015 influenza virus vacc ine, unspecified formulation Nadir Grady MD Work Phone: [facility] Work Phone: 07-24-2011 tetanus toxoid, redu radha diphtheria toxoid, and acellular pertussis vaccine, adsorbed Nadir Grady MD Work Phone: [facility] Work Phone: 05-18-2011 influenza virus vacc ine, unspecified formulation Nadir Grady MD Work Phone: [facility] Work Phone: 07-10-2010 influenza virus vacc ine, unspecified formulation Nadir Grady MD Work Phone: [facility] Work Phone: 06-09-2009 influenza virus vacc ine, unspecified formulation Nadir Grady MD Work Phone: [facility] Work Phone: 06-07-2008 influenza virus vacc ine, unspecified formulation Nadir Grady MD Work Phone: [facility] 07-06-2007 influenza virus vacc ine, unspecified formulation Nadir Grady MD Work Phone: [facility] Work Phone: 07-05-2006 influenza virus vacc ine, unspecified formulation Nadir Grady MD Work Phone: [facility] Work Phone: Payers Date Payer Category Payer Medicare [id number] 2018 Medicare [employer] MEDICARE [employer] GOLD PLUS [id number] 2018-Present [phone] [address] [address] [place] [address] O [id number] 2018 Medicare HUMANA MEDICARE [employer]NA GOLD PLUS [id number] 2018-Present [phone] [address] [address] [place] [address] O [id number] 1999 Unknown [facility] Contactually COMP [id number] 1999-Present [phone] [place], [place] [id number] [place] [address] [id number] 1999 Unknown [facility] Feedback COMP [id number] 1999-Present [phone] [place] [address] [facility] [id number] Social History Date Type Detail Facility Start: 08-04-2015 End: 04-19-2022 Tobacco smoking status CAIS Never smoked tobacco [facility] Work Phone: End: 07-02-2014 History of tobacco use Chews Tobacco [facility] Work Phone: Start: 11-08-2021 End: 06-27-2022 Alcohol intake Current non-drinker of alcohol (finding) [facility] Start: 11-07-2020 End: 04-19-2022 History SDOH Alcohol Frequency 1 [facility] Start: 11-07-2020 End: 04-19-2022 History SDOH Alcohol Std Drinks 98 [facility] Start: 11-07-2020 End: 04-19-2022 History SDOH Social Connections Phone 5 [facility] Start: 11-07-2020 End: 04-19-2022 History SDOH Social Connections Get Together 2 [facility] Start: 11-07-2020 End: 04-19-2022 History SDOH Social Connections Living 4 [facility] Start: 11-07-2020 Education 11 [facility] Start: 08-04-2015 End: 04-19-2022 Tobacco Comment 1 can of chewing tobacco every 3 days PT QUIT 2014 [facility] Start: 1955 Sex Assigned At Not on file C [facility] Start: 10-29-2021 End: 08-05-2022 Exposure to SARS-CoV-2 (event) Not sure [facility] History of tobacco use Cigarette Smoker C [facility] Work Phone: Start: 08-04-2015 End: 04-19-2022 Tobacco use and exposure Former smokeless tobacco user [facility] Work Phone: Start: 04-19-2022 History SDOH Social Connections Adventism 3 [facility] Start: 04-06-2022 End: 04-19-2022 History of Social function [facility] Start: 04-06-2022 End: 04-19-2022 Social connection and isolation panel [facility] Do you belong to any clubs or organizations such as presybeterian groups, unions, fraternal or athletic groups, or school groups? No [facility] How often do you att end meetings of the clubs or organizations you belong to? Patient refused [facility] Are you now , , , , never or living with a partner? [facility] How often to you hav e a drink containing alcohol? Never [facility] How hard is it for y ou to pay for the very basics like food, housing, medical care, and heating Not very hard [facility] Do you feel stress - tense, restless, nervous, or anxious, or unable to sleep at night because your mind is troubled all the time - these days [OSQ] Very much [facility] (I/We) worried whetyron er (my/our) food would run out before (I/we) got money to buy more. Sometimes true [facility] Medical Equipment Procedure Code Equipment Code Equipment Origin al Text Equipment Identifier Dates Start: 10-14-2016 End: 06-26-2022 Clinical Notes 10-03-2016 to 09-03-2023 Telephone Encounter - Alayna UrrutiaANA - 06/26/2023 3:14 PM EDTTelephone Encounter - Yolanda Brower - 06/26/2023 9:44 AM EDTTelephone Encounter - Jennifer Blue RN - 06/26/2023 2:59 PM EDT Note Date & Type Note Facility 09-03-2023 Note HNO ID: [id number] Author: Blanca Lee PA-C Service: ? Author Type: Physician Corporate Statistical Financial Analyst Type: Progress Notes Filed: 09/03/2023 3:40 PM Note Text: This note was created using BOOK [employer] TIGER[employer]. Subjective Michael Bates is a 68 year old male. HPI Presents with mouth sores for the past 2 days. He states his tongue has been sore and somewhat swollen. He has a history of thrush before and this feels very similar. He had thrush in June after being on antibiotics. He has not had antibiotics since then. He is not on an inhaler. He did stop his Flonase nasal spray. No cold symptoms. No other complaints. Review of Systems Constitutional: Negative. HENT: Positive for mouth sores. Eyes: Negative. Respiratory: Negative. Cardiovascular: Negative. Gastrointestinal: Negative. Genitourinary: Negative. Musculoskeletal: Negative. All other systems reviewed and are negative. PAST MEDICAL HISTORY Diagnosis Date Acute right-sided low back pain with right-sided sciatica 07/09/2016 Adhesive capsulitis of shoulder 12/04/2007 Adjustment disorder with depressed mood 10/16/2006 Anemia of chronic disease 02/14/2021 Benign non-nodular prostatic hyperplasia without lower urinary tract symptoms 10/03/2016 Bilateral chronic knee pain 10/10/2016 Bilateral occipital neuralgia 08/04/2015 Carotid stenosis, asymptomatic, bilateral 08/09/2015 US 08/2015: bilateral 20-40%, US 06/2017 Rt; 40-60% and Lt 60-80% monitored by cardio Cervical spondylosis 01/20/2012 Cervicalgia 10/16/2006 Cervicogenic headache 10/16/2015 Chronic post-traumatic headache 08/04/[address] Duque Chronic sinusitis Claudication (HCC) 06/04/2017 PVR's normal. Coronary atherosclerosis due to lipid rich plaque 01/20/[address] Kern. s/p RODDY to Ramus and RODDY to LAD placed 01/20/2017. COVID-19 virus infection 06/18/202106/2021 DDD (degenerative disc disease), cervical 01/20/2012 DDD (degenerative disc disease), lumbar 06/30/2016 Multi level, worse L2-L3 Diabetes (HCC) Diabetic eye exam ([facility]) 03/19/2017 Last done: 10/01/2018 Elevated LFTs 08/05/2015 Essential hypertension, benign GERD without esophagitis 06/12/2018 History of COVID-19 06/18/202106/2021 Illiteracy 10/09/2020 Leg pain, bilateral 06/04/2017 Lumbago 02/09/2010 * Dealing with on his own as of 08/2011 -- had a bad experience with a spine surgeon, nearly did surgery based on the wrong x-rays * Dates back to an injury while lifting 55 lbs Lumbar radiculopathy Migraine variant 07/22/2006 Since head injury around 1995 Mixed hyperlipidemia 08/04/2015 Neck pain, chronic 10/16/2015 Neuropathy 06/12/2018 Primary insomnia 03/02/2019 Radicular pain of right lower extremity 07/09/2016 S/P drug eluting coronary stent placement 01/20/201712/2016: 2 stents: Ramus of Circ and LAD S/P drug eluting coronary stent placement 01/20/201712/2016: 2 stents: Ramus of Circ and LAD, 05/10/20 RODDY to pLCx Sciatica 02/09/2010 Seborrheic dermatitis 08/04/2015 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 ferrous sulfate 325 mg (65 mg iron) tablet Take 1 tablet by mouth two times a day with meals. 180 tablet 1 metFORMIN ER (GLUCOPHAGE XR) 500 mg 24 hr tablet Take 2 tablets by mouth two times a day. 360 tablet 1 pioglitazone (ACTOS) 45 mg tablet Take 1 tablet by mouth once daily. 90 tablet 1 triamcinolone acetonide (KENALOG) 0.1 % cream Apply 1 application to affected area three times daily. Apply sparingly to area for rash/itching. 80 g 0 docosahexaenoic acid/epa (FISH OIL ORAL) Take by mouth as directed. gabapentin (NEURONTIN) 600 mg tablet Take 600 mg by mouth daily at bedtime. pantoprazole DR (PROTONIX) 40 mg tablet Take 1 tablet by mouth daily before breakfast. Take on empty stomach, 1/2 hr before meal. Blood-Glucose Meter monitoring kit Glucose Meter of Choice - Kit - Dx: Type 2 DM - Uncontrolled E11.65 1 Each 0 Lancets lancets Test blood sugar(s) 2 times daily. Dx: Type 2 DM - Uncontrolled E11.65 Insulin: No 100 Each 11 blood sugar diagnostic (BLOOD GLUCOSE TEST) test strip Test blood sugar(s) 2 times daily. Dx: Type 2 DM - Uncontrolled E11.65 Insulin: No 100 Strip 11 fluticasone (FLONASE) 50 mcg/actuation nasal spray INSTILL 2 SPRAYS IN EACH NOSTRIL ONCE DAILY 16 g 11 nitroglycerin sublingual (NITROSTAT) 0.4 mg SL tablet Dissolve 1 tablet under the tongue every 5 minutes as needed for chest pain. 1 Bottle of 25 1 atorvastatin (LIPITOR) 80 mg tablet Take 1 tablet by mouth once daily. Managed by cardiology, Dr. Kern 30 tablet 11 clopidogrel (PLAVIX) 75 mg tablet Take 1 tablet by mouth once daily. Managed by [facility] 30 tablet 11 omega-3 fatty acids 1,000 m (more content not included)... [facility] 09-02-2023 Note HNO ID: [id number] Author: Pat Feldman LPN Service: ? Author Type: LICENSED NURSE Type: Progress Notes Filed: 09/02/2023 4:50 PM Note Text: Scan on 09/02/2023 4:28 PM by Provider, External, PA-C: Consultation - Ophthalmology [facility] 06-26-2023 Miscellaneous Notes Contacted patient and let him that [facility] prescribes the medication. Alayna Urrutia MA Patient has been identified by name and date of : Yes, Provider Nadir Grady Date 06/26/23 Time 9:45 Patient phones for refill(s): Requested Prescriptions Pending Prescriptions Disp Refills clopidogrel (PLAVIX) 75 mg tablet 30 tablet 11 Sig: Take 1 tablet by mouth once daily. Managed by [facility] Date of last office visit in primary care: 06/17/2023 Date of next office visit in primary care: Visit date not found Last 2 Encounter Wt Readings: Date: Wt: 06/26/2023 84.5 kg (186 lb 3.2 oz) 06/17/2023 85.7 kg (189 lb) Previous labs/tests for medication: Not applicable Please advise. Thank you. Yolanda Brower. documented in this encounter [facility] 06-26-2023 Miscellaneous Notes Pt called and is notified of providers message and instructions. Pt voices understanding. Jennifer Blue RN Let patient know script for Augmentin sent in for 7 day of Tx. The following approved medication requests have been transmitted electronically. Requested Prescriptions Signed Prescriptions Disp Refills amoxicillin-clavulanate potassium (AUGMENTIN) 875-125 mg per tablet 14 tablet 0 Sig: Take 1 tablet by mouth two times a day for 7 days. Authorizing Provider: NADIR GRADY MD Patient was seen by Gamal on 06/17/2023 for chest and head congestion x 1 week was given augmentin. Contacted patient and he indicated still having cough; sinus congestion; no fever; says his chest hurts but probably from coughing. Noticing SOB. Patient was seen yesterday in and was treated for Thrush. Alayna Urrutia MA Patient request refill on 125mg Augmentin, please advise documented in this encounter [facility] 06-26-2023 Note HNO ID: [id number] Author: Fer Merrill APRN.[employer]BE[employer] REMOVAL SUPERVISOR Service: ? Author Type: Nurse Practitioner Type: Progress Notes Filed: 06/26/2023 9:44 AM Note Text: Subjective HPI HPI Michael Bates is a 68 year old male who presents today for CC of sore tongue and lips. This started 1 day ago. Has tried nothing for relief . Symptoms are worsened by spicy foods. Risk factors recent uri and flonase use. .Patient presents with: Mouth/Lip Problem: Mouth and lips are sore x 1 day PAST MEDICAL HISTORY Diagnosis Date Acute right-sided low back pain with right-sided sciatica 07/09/2016 Adhesive capsulitis of shoulder 12/04/2007 Adjustment disorder with depressed mood 10/16/2006 Anemia of chronic disease 02/14/2021 Benign non-nodular prostatic hyperplasia without lower urinary tract symptoms 10/03/2016 Bilateral chronic knee pain 10/10/2016 Bilateral occipital neuralgia 08/04/2015 Carotid stenosis, asymptomatic, bilateral 08/09/2015 US 08/2015: bilateral 20-40%, US 06/2017 Rt; 40-60% and Lt 60-80% monitored by cardio Cervical spondylosis 01/20/2012 Cervicalgia 10/16/2006 Cervicogenic headache 10/16/2015 Chronic post-traumatic headache 08/04/[address] Duque Chronic sinusitis Claudication (HCC) 06/04/2017 PVR's normal. Coronary atherosclerosis due to lipid rich plaque 01/20/[address] Kern. s/p RODDY to Ramus and RODDY to LAD placed 01/20/2017. COVID-19 virus infection 06/18/202106/2021 DDD (degenerative disc disease), cervical 01/20/2012 DDD (degenerative disc disease), lumbar 06/30/2016 Multi level, worse L2-L3 Diabetes (HCC) Diabetic eye exam (HCC) 03/19/2017 Last done: 10/01/2018 Elevated LFTs 08/05/2015 Essential hypertension, benign GERD without esophagitis 06/12/2018 History of COVID-19 06/18/202106/2021 Illiteracy 10/09/2020 Leg pain, bilateral 06/04/2017 Lumbago 02/09/2010 * Dealing with on his own as of 08/2011 -- had a bad experience with a spine surgeon, nearly did surgery based on the wrong x-rays * Dates back to an injury while lifting 55 lbs Lumbar radiculopathy Migraine variant 07/22/2006 Since head injury around 1995 Mixed hyperlipidemia 08/04/2015 Neck pain, chronic 10/16/2015 Neuropathy 06/12/2018 Primary insomnia 03/02/2019 Radicular pain of right lower extremity 07/09/2016 S/P drug eluting coronary stent placement 01/20/201712/2016: 2 stents: Ramus of Circ and LAD S/P drug eluting coronary stent placement 01/20/201712/2016: 2 stents: Ramus of Circ and LAD, 05/10/20 RODDY to pLCx Sciatica 02/09/2010 Seborrheic dermatitis 08/04/2015 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, s/p repair Unspecified pruritic disorder 03/02/2009 PAST SURGICAL HISTORY Procedure Laterality Date 2D ECHO (EXEP) 01/16/2017 EF=60%, 1+ AK and TI CATARACT EXTRACTION HX Left 10/2019 CC CORONARY STENT 05/10/2020 RODDY to pLCx CC CORONARY STENT 12/2016 Ramus of Circ and LAD CC CORONARY STENT 11/20/2020 RODDY to pLCx and PTCA to OM2 CC CORONARY STENT 07/23/2021 PCI to prox Lt Circ in-stent restenosis then placement of RODDY COLONOSCOPY SCREENING 10/14/2022 COLONOSCOPY SCREENING 10/14/2022 repeat in 10 yrs EGD 10/14/2022 long seg Santos's without dysplasia, repeat in 2 years EGD W/O BRSH SPEC VARICIES INJ 10/14/2022 FECAL OCCULT BLOOD TEST 04/19/2019 Negative PAST SURGICAL HISTORY OF 1971 appendix PAST SURGICAL HISTORY OF right foot -- tendon surgery PAST SURGICAL HISTORY OF 1999 +/- Right hand -- trauma, aneurysm repair/CTS release -- Dr. Llanes PAST SURGICAL HISTORY OF 2008 torn cartilage -- arthroscopy, left knee PAST SURGICAL HISTORY OF 2018 right hand ulnar artery aneurism repair. STRESS TEST 07/01/2018 negative STRESS TEST NUCLEAR 07/2019 negative ALLERGIES Florinef [Fludrocortisone] and Perfumes MEDICATIONS ranolazine ER (RANEXA) 500 mg 12 hr tablet Take 500 mg by mouth two times a day. ferrous sulfate 325 mg (65 mg iron) tablet Take 1 tablet by mouth two times a day with meals. metFORMIN ER (GLUCOPHAGE XR) 500 mg 24 hr tablet Take 2 tablets by mouth two times a day. pioglitazone (ACTOS) 45 mg tablet Take 1 tablet by mouth once daily. triamcinolone acetonide (KENALOG) 0.1 % cream Apply 1 application to affected area three times daily. Apply sparingly to area for rash/itching. docosahexaenoic acid/epa (FISH OIL ORAL) Take by mouth as directed. gabapentin (NEURONTIN) 600 mg tablet Take 600 mg by mouth daily at bedtime. pantoprazole DR (PROTONIX) 40 mg tablet Take 1 tablet by mouth daily before breakfast. Take on empty stomach, 1/2 hr before meal. Blood-Glucose Meter monitoring kit Glucose Meter of Choice - Kit - Dx: Type 2 DM - Uncontrolled E11.65 Lancets lancets Test blood sugar(s) 2 times daily. Dx: Type 2 DM - Uncontrolled E11.65 Insulin: No blood sugar diagnostic (BLOOD GLUCOSE TEST) test strip Test blood sugar(s) 2 times d (more content not included)... [facility] 06-26-2023 History of Present illness Narrative Images from the original note were not included. Subjective HPI HPI Michael Bates is a 68 year old male who presents today for CC of sore tongue and lips. This started 1 day ago. Has tried nothing for relief . Symptoms are worsened by spicy foods. Risk factors recent uri and flonase use. .Patient presents with: Mouth/Lip Problem: Mouth and lips are sore x 1 day PAST MEDICAL HISTORY Diagnosis Date Acute right-sided low back pain with right-sided sciatica 07/09/2016 Adhesive capsulitis of shoulder 12/04/2007 Adjustment disorder with depressed mood 10/16/2006 Anemia of chronic disease 02/14/2021 Benign non-nodular prostatic hyperplasia without lower urinary tract symptoms 10/03/2016 Bilateral chronic knee pain 10/10/2016 Bilateral occipital neuralgia 08/04/2015 Carotid stenosis, asymptomatic, bilateral 08/09/2015 US 08/2015: bilateral 20-40%, US 06/2017 Rt; 40-60% and Lt 60-80% monitored by cardio Cervical spondylosis 01/20/2012 Cervicalgia 10/16/2006 Cervicogenic headache 10/16/2015 Chronic post-traumatic headache 08/04/[address] Duque Chronic sinusitis Claudication (HCC) 06/04/2017 PVR's normal. Coronary atherosclerosis due to lipid rich plaque 01/20/[address] Kern. s/p RODDY to Ramus and RODDY to LAD placed 01/20/2017. COVID-19 virus infection 06/18/202106/2021 DDD (degenerative disc disease), cervical 01/20/2012 DDD (degenerative disc disease), lumbar 06/30/2016 Multi level, worse L2-L3 Diabetes ([facility]) Diabetic eye exam ([facility]) 03/19/2017 Last done: 10/01/2018 Elevated LFTs 08/05/2015 Essential hypertension, benign GERD without esophagitis 06/12/2018 History of COVID-19 06/18/202106/2021 Illiteracy 10/09/2020 Leg pain, bilateral 06/04/2017 Lumbago 02/09/2010 * Dealing with on his own as of 08/2011 -- had a bad experience with a spine surgeon, nearly did surgery based on the wrong x-rays * Dates back to an injury while lifting 55 lbs Lumbar radiculopathy Migraine variant 07/22/2006 Since head injury around 1995 Mixed hyperlipidemia 08/04/2015 Neck pain, chronic 10/16/2015 Neuropathy 06/12/2018 Primary insomnia 03/02/2019 Radicular pain of right lower extremity 07/09/2016 S/P drug eluting coronary stent placement 01/20/201712/2016: 2 stents: Ramus of Circ and LAD S/P drug eluting coronary stent placement 01/20/201712/2016: 2 stents: Ramus of Circ and LAD, 05/10/20 RODDY to pLCx Sciatica 02/09/2010 Seborrheic dermatitis 08/04/2015 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, s/p repair Unspecified pruritic disorder 03/02/2009 PAST SURGICAL HISTORY Procedure Laterality Date 2D ECHO (EXEP) 01/16/2017 EF=60%, 1+ AK and TI CATARACT EXTRACTION HX Left 10/2019 CC CORONARY STENT 05/10/2020 RODDY to pLCx CC CORONARY STENT 12/2016 Ramus of Circ and LAD CC CORONARY STENT 11/20/2020 RODDY to pLCx and PTCA to OM2 CC CORONARY STENT 07/23/2021 PCI to prox Lt Circ in-stent restenosis then placement of RODDY COLONOSCOPY SCREENING 10/14/2022 COLONOSCOPY SCREENING 10/14/2022 repeat in 10 yrs EGD 10/14/2022 long seg Santos's without dysplasia, repeat in 2 years EGD W/O BRSH SPEC VARICIES INJ 10/14/2022 FECAL OCCULT BLOOD TEST 04/19/2019 Negative PAST SURGICAL HISTORY OF 1971 appendix PAST SURGICAL HISTORY OF right foot -- tendon surgery PAST SURGICAL HISTORY OF 1999 +/- Right hand -- trauma, aneurysm repair/CTS release -- Dr. Llanes PAST SURGICAL HISTORY OF 2008 torn cartilage -- arthroscopy, left knee PAST SURGICAL HISTORY OF 2017 right hand ulnar artery aneurism repair. STRESS TEST 07/01/2018 negative STRESS TEST NUCLEAR 07/2019 negative ALLERGIES Florinef [Fludrocortisone] and Perfumes MEDICATIONS ranolazine ER (RANEXA) 500 mg 12 hr tablet Take 500 mg by mouth two times a day. ferrous sulfate 325 mg (65 mg iron) tablet Take 1 tablet by mouth two times a day with meals. metFORMIN ER (GLUCOPHAGE XR) 500 mg 24 hr tablet Take 2 tablets by mouth two times a day. pioglitazone (ACTOS) 45 mg tablet Take 1 tablet by mouth once daily. triamcinolone acetonide (KENALOG) 0.1 % cream Apply 1 application to affected area three times daily. Apply sparingly to area for rash/itching. docosahexaenoic acid/epa (FISH OIL ORAL) Take by mouth as directed. gabapentin (NEURONTIN) 600 mg tablet Take 600 mg by mouth daily at bedtime. pantoprazole DR (PROTONIX) 40 mg tablet Take 1 tablet by mouth daily before breakfast. Take on empty stomach, 1/2 hr before meal. Blood-Glucose Meter monitoring kit Glucose Meter of Choice - Kit - Dx: Type 2 DM - Uncontrolled E11.65 Lancets lancets Test blood sugar(s) 2 times daily. Dx: Type 2 DM - Uncontrolled E11.65 Insulin: No blood sugar diagnostic (BLOOD GLUCOSE TEST) test strip Test blood sugar(s) 2 times daily. Dx: Type 2 DM - Uncontrolled E11.65 Insulin: No fluticasone (FLONASE) 50 mcg/actuation nasal spray INSTILL 2 SPRAYS IN EACH NOSTRIL ONCE DAILY nitroglycerin sublingual (NITROSTAT) 0.4 mg SL tablet Dissolve 1 tablet under the tongue every 5 minutes as needed for chest pain. atorvastatin (LIPITOR) 80 mg tablet Take 1 tablet by mouth once daily. Managed by cardiology, Dr. Kern clopidogrel (PLAVIX) 75 mg tablet Take 1 tablet by mouth once daily. Managed by [facility] omega-3 fatty acids 1,000 mg cap Take 2 capsules by mouth once daily. aspirin, enteric coated (ECOTRIN LOW STRENGTH) 81 mg EC tablet Take 1 tablet by mouth once daily. Blood Pressure Monitor kit 1 Each once daily. Blood Glucose Control High and Low (ACCU-CHEK MEGHANA CONTROL SOLN) soln Use as directed as indicated to check quality of test strips nystatin (MYCOSTATIN) 100,000 unit/mL suspension Take 5 mL by mouth four times daily. 1tsp swish in mouth for several minutes, then swallow (or expectorate) 4 times daily until gone. FAMILY HISTORY Problem Relation Age of Onset Lung Cancer Mother lung Coronary Artery Disease Sister former smoker Stroke Sister other (neurofibromatosis) Son from mother Social History Tobacco Use Smoking status: Never Smokeless tobacco: Former Types: Chew Quit date: 07/02/2014 Tobacco comments: 1 can of chewing tobacco every 3 days PT QUIT 2014 Vaping Use Vaping Use: Never used Substance Use Topics Alcohol use: No Drug use: No ROS Objective Blood pressure 142/80, pulse 72, temperature 36.6 C (97.8 F), temperature source Tympanic, resp. rate 16, weight 84.5 kg (186 lb 3.2 oz), SpO2 97 %. Physical Exam Constitutional: General: He is not in acute distress. Appearance: He is not toxic-appearing or diaphoretic. HENT: Head: Normocephalic and atraumatic. Nose: Nose normal. Mouth/Throat: Lips: [place]. Mouth: Mucous membranes are moist. Pulmonary: Effort: Pulmonary effort is normal. No accessory muscle usage or respiratory distress. Lymphadenopathy: Cervical: No cervical adenopathy. Right cervical: No superficial cervical adenopathy. Left cervical: No superficial cervical adenopathy. Neurological: Mental Status: He is alert and oriented to person, place, and time. ASSESSMENT/PLAN: 1. Mouth pain - ICD9: 528.9, ICD10: K13.79 Unclear etiology, possible early fungal from flonase vs stomatitis from recent uri. -use medication as prescribed -follow up if symptoms persist, worsen, change - NYSTATIN 100,000 UNIT/ML ORAL SUSPENSION Fer Merrill APRN.MIGEL documented in this encounter [facility] 06-19-2023 Note HNO ID: [id number] Author: Odin Reyes MD Service: ? Author Type: Physician Type: Progress Notes Filed: 06/19/2023 12:37 PM Note Text: Express Care Triage Note: Patient presents to the [facility] with complaint of sinus pain and shortness of breath. He is a little worse than when seen and treated by Family Medicine 2 days ago. The patient was triaged and determined that he could be further evaluated in the Express Care, but he left before being roomed. [facility] 06-19-2023 History of Present illness Narrative Express Care Triage Note: Patient presents to the [facility] with complaint of sinus pain and shortness of breath. He is a little worse than when seen and treated by Family Medicine 2 days ago. The patient was triaged and determined that he could be further evaluated in the Express [facility], but he left before being roomed. documented in this encounter [facility] 06-19-2023 Miscellaneous Notes Patient notified and verbalized understanding Meg Miller Cma Please let patient know his labs show improvement in his hgb a1c and the rest of his labs are stable. documented in this encounter [facility] 06-17-2023 Note HNO ID: [id number] Author: Gamal Mathis APRN.CNP Service: ? Author Type: Nurse Practitioner Type: Progress Notes Filed: 06/17/2023 9:03 AM Note Text: Chief Complaint Patient presents with: F/U 6 months Chest Congestion: X 1 week HPI Michael Bates is a 68 year old male who presents here today for Above Complaints.. Patient presents for routine follow up. Patient reports he currently has chest and head congestion x1 week along with mild SOB, productive cough with yellow sputum. Denies fevers. Patient reports his chronic conditions are well controlled. Past medical history, appointments, medications, allergies reviewed. Previous Medical History PAST MEDICAL HISTORY Diagnosis Date Acute right-sided low back pain with right-sided sciatica 07/09/2016 Adhesive capsulitis of shoulder 12/04/2007 Adjustment disorder with depressed mood 10/16/2006 Anemia of chronic disease 02/14/2021 Benign non-nodular prostatic hyperplasia without lower urinary tract symptoms 10/03/2016 Bilateral chronic knee pain 10/10/2016 Bilateral occipital neuralgia 08/04/2015 Carotid stenosis, asymptomatic, bilateral 08/09/2015 US 08/2015: bilateral 20-40%, US 06/2017 Rt; 40-60% and Lt 60-80% monitored by cardio Cervical spondylosis 01/20/2012 Cervicalgia 10/16/2006 Cervicogenic headache 10/16/2015 Chronic post-traumatic headache 08/04/[address] Duque Chronic sinusitis Claudication (HCC) 06/04/2017 PVR's normal. Coronary atherosclerosis due to lipid rich plaque 01/20/[address] Kern. s/p RODDY to Ramus and RODDY to LAD placed 01/20/2017. COVID-19 virus infection 06/18/202106/2021 DDD (degenerative disc disease), cervical 01/20/2012 DDD (degenerative disc disease), lumbar 06/30/2016 Multi level, worse L2-L3 Diabetes (HCC) Diabetic eye exam (HCC) 03/19/2017 Last done: 10/01/2018 Elevated LFTs 08/05/2015 Essential hypertension, benign GERD without esophagitis 06/12/2018 History of COVID-19 06/18/202106/2021 Illiteracy 10/09/2020 Leg pain, bilateral 06/04/2017 Lumbago 02/09/2010 * Dealing with on his own as of 08/2011 -- had a bad experience with a spine surgeon, nearly did surgery based on the wrong x-rays * Dates back to an injury while lifting 55 lbs Lumbar radiculopathy Migraine variant 07/22/2006 Since head injury around 1995 Mixed hyperlipidemia 08/04/2015 Neck pain, chronic 10/16/2015 Neuropathy 06/12/2018 Primary insomnia 03/02/2019 Radicular pain of right lower extremity 07/09/2016 S/P drug eluting coronary stent placement 01/20/201712/2016: 2 stents: Ramus of Circ and LAD S/P drug eluting coronary stent placement 01/20/201712/2016: 2 stents: Ramus of Circ and LAD, 05/10/20 RODDY to pLCx Sciatica 02/09/2010 Seborrheic dermatitis 08/04/2015 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, s/p repair Unspecified pruritic disorder 03/02/2009 Previous Surgical History PAST SURGICAL HISTORY Procedure Laterality Date 2D ECHO (EXEP) 01/16/2017 EF=60%, 1+ AK and TI CATARACT EXTRACTION HX Left 10/2019 CC CORONARY STENT 05/10/2020 RODDY to pLCx CC CORONARY STENT 12/2016 Ramus of Circ and LAD CC CORONARY STENT 11/20/2020 RODDY to pLCx and PTCA to OM2 CC CORONARY STENT 07/23/2021 PCI to prox Lt Circ in-stent restenosis then placement of RODDY COLONOSCOPY SCREENING 10/14/2022 COLONOSCOPY SCREENING 10/14/2022 repeat in 10 yrs EGD 10/14/2022 long seg Santos's without dysplasia, repeat in 2 years EGD W/O BRSH SPEC VARICIES INJ 10/14/2022 FECAL OCCULT BLOOD TEST 04/19/2019 Negative PAST SURGICAL HISTORY OF 1971 appendix PAST SURGICAL HISTORY OF right foot -- tendon surgery PAST SURGICAL HISTORY OF 1999 +/- Right hand -- trauma, aneurysm repair/CTS release -- Dr. Llanes PAST SURGICAL HISTORY OF 2008 torn cartilage -- arthroscopy, left knee PAST SURGICAL HISTORY OF 2017 right hand ulnar artery aneurism repair. STRESS TEST 07/01/2018 negative STRESS TEST NUCLEAR 07/2019 negative Family History FAMILY HISTORY Problem Relation Age of Onset Lung Cancer Mother lung Coronary Artery Disease Sister former smoker Stroke Sister other (neurofibromatosis) Son from mother Patient Allergies ALLERGIES Allergen Reactions Florinef [Fludrocor* Angioedema Perfumes Other: See Comments sneezing Current Medications Current Outpatient Medications on File Prior to Visit Medication Sig ferrous sulfate 325 mg (65 mg iron) tablet Take 1 tablet by mouth two times a day with meals. ranolazine ER (RANEXA) 500 mg 12 hr tablet Take 1 tablet by mouth twice daily. Per [facility]: Dr. Kern nystatin (MYCOSTATIN) 100,000 unit/mL suspension Take 5 mL by mouth four times daily. 1tsp swish in mouth for several minutes, then swallow (or expectorate) 4 times daily until gone. triamcinolone acetonide (KENALOG) 0.1 % cream Apply 1 application to affected are (more content not included)... [facility] 05-16-2023 Note HNO ID: [id number] Author: Yamile Burns LPN Service: ? Author Type: ? Type: Progress Notes Filed: 05/18/2023 4:03 PM Note Text: Scan on 05/15/2023 9:35 AM by ProviderSonido PA-C: Consultation - Cardiology [facility] 05-16-2023 History of Present illness Narrative Scan on 05/15/2023 9:35 AM by ProviderSonido PA-C: Consultation - Cardiology documented in this encounter [facility] 04-04-2023 Miscellaneous Notes Patient notified.Daniella Whiteside LPN Please notify that testing showed no fungus at 3 days. Will call if becomes positive. documented in this encounter [facility] 04-03-2023 Miscellaneous Notes Pt was notified of the results. Pt verbalized understanding. Hodan Menard MA No fungal growth after 1 day will continue to grow culture and if anything comes back positive we will call patient. documented in this encounter [facility] 04-01-2023 Miscellaneous Notes Last office visit: 11/28/22 F/u scheduled: 06/04/23 Geno Perez Ma Patient has been identified by name and date of : Yes Last office visit in this department: 11/28/2022 RX INSTRUCTIONS: Patient aware RX will be sent to pharmacy. No need to notify patient. Patient phones requesting refills as follows: Requested Prescriptions Pending Prescriptions Disp Refills ferrous sulfate 325 mg (65 mg iron) tablet 60 tablet 1 Sig: Take 1 tablet by mouth twice daily with meals. Please review and advise. Tato Isidro documented in this encounter [facility] 04-01-2023 Note HNO ID: [id number] Author: Blanca Lee PA-C Service: ? Author Type: Physician Corporate Statistical Financial Analyst Type: Progress Notes Filed: 04/01/2023 8:17 AM Note Text: This note was created using BOOK [employer] TIGER[employer]. Subjective Michael Bates is a 68 year old male. HPI Patient presents with a chief complaint of mouth sores. He states that his mouth started to hurt last night and he woke up this morning and it was swollen and he had sores on the right side of his mouth and underneath both lips. Very painful to open his mouth. He is diabetic. Last A1c was 7.7. He did have a topical steroid 3 weeks ago. No oral steroids recently. He is not on inhaler. Denies recurrent thrush. No fever. No trouble breathing. No swelling of his tongue. [facility] Not on any PANFILO inhibitors. He did start taking an [id number] zinc supplement 3 weeks ago. He had put benzocaine on the mouth sores last night, has used this several times before previously. Review of Systems Constitutional: Negative. HENT: Positive for mouth sores. Negative for congestion. Respiratory: Negative. All other systems reviewed and are negative. PAST MEDICAL HISTORY Diagnosis Date Acute right-sided low back pain with right-sided sciatica 07/09/2016 Adhesive capsulitis of shoulder 12/04/2007 Adjustment disorder with depressed mood 10/16/2006 Anemia of chronic disease 02/14/2021 Benign non-nodular prostatic hyperplasia without lower urinary tract symptoms 10/03/2016 Bilateral chronic knee pain 10/10/2016 Bilateral occipital neuralgia 08/04/2015 Carotid stenosis, asymptomatic, bilateral 08/09/2015 US 08/2015: bilateral 20-40%, US 06/2017 Rt; 40-60% and Lt 60-80% monitored by cardio Cervical spondylosis 01/20/2012 Cervicalgia 10/16/2006 Cervicogenic headache 10/16/2015 Chronic post-traumatic headache 08/04/[address] Duque Chronic sinusitis Claudication (HCC) 06/04/2017 PVR's normal. Coronary atherosclerosis due to lipid rich plaque 01/20/[address] Kern. s/p RODDY to Ramus and RODDY to LAD placed 01/20/2017. COVID-19 virus infection 06/18/202106/2021 DDD (degenerative disc disease), cervical 01/20/2012 DDD (degenerative disc disease), lumbar 06/30/2016 Multi level, worse L2-L3 Diabetes (HCC) Diabetic eye exam (HCC) 03/19/2017 Last done: 10/01/2018 Elevated LFTs 08/05/2015 Essential hypertension, benign GERD without esophagitis 06/12/2018 History of COVID-19 06/18/202106/2021 Illiteracy 10/09/2020 Leg pain, bilateral 06/04/2017 Lumbago 02/09/2010 * Dealing with on his own as of 08/2011 -- had a bad experience with a spine surgeon, nearly did surgery based on the wrong x-rays * Dates back to an injury while lifting 55 lbs Lumbar radiculopathy Migraine variant 07/22/2006 Since head injury around 1995 Mixed hyperlipidemia 08/04/2015 Neck pain, chronic 10/16/2015 Neuropathy 06/12/2018 Primary insomnia 03/02/2019 Radicular pain of right lower extremity 07/09/2016 S/P drug eluting coronary stent placement 01/20/201712/2016: 2 stents: Ramus of Circ and LAD S/P drug eluting coronary stent placement 01/20/201712/2016: 2 stents: Ramus of Circ and LAD, 05/10/20 RODDY to pLCx Sciatica 02/09/2010 Seborrheic dermatitis 08/04/2015 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 Apply sparingly to area for rash/itching. 80 g 0 metFORMIN ER (GLUCOPHAGE XR) 500 mg 24 hr tablet Take 2 tablets by mouth twice daily. 360 tablet 1 ferrous sulfate 325 mg (65 mg iron) tablet Take 1 tablet by mouth twice daily with meals. 60 tablet 1 pioglitazone (ACTOS) 45 mg tablet Take 1 tablet by mouth once daily. 90 tablet 1 docosahexaenoic acid/epa (FISH OIL ORAL) Take by mouth as directed. gabapentin (NEURONTIN) 600 mg tablet Take 600 mg by mouth daily at bedtime. pantoprazole DR (PROTONIX) 40 mg tablet Take 1 tablet by mouth daily before breakfast. Take on empty stomach, 1/2 hr before meal. Blood-Glucose Meter monitoring kit Glucose Meter of Choice - Kit - Dx: Type 2 DM - Uncontrolled E11.65 1 Each 0 Lancets lancets Test blood sugar(s) 2 times daily. Dx: Type 2 DM - Uncontrolled E11.65 Insulin: No 100 Each 11 blood sugar diagnostic (BLOOD GLUCOSE TEST) test strip Test blood sugar(s) 2 times daily. Dx: Type 2 DM - Uncontrolled E11.65 Insulin: No 100 Strip 11 fluticasone (FLONASE) 50 mcg/actuation nasal spray INSTILL 2 SPRAYS IN EACH NOSTRIL ONCE DAILY 16 g 11 nitroglycerin sublingual (NITROSTAT) 0.4 mg SL tablet Dissolve 1 tablet under the tongue every 5 minutes as needed for chest pain. 1 Bottle of 25 1 atorvastatin (LIPITOR) 80 mg tablet Take 1 tablet by mouth once daily. Managed by cardiology, Dr. Kern 30 t (more content not included)... [facility] 04-01-2023 History of Present illness Narrative This note was created using [employer] TIGER[employer]. Subjective Michael Bates is a 68 year old male. HPI Patient presents with a chief complaint of mouth sores. He states that his mouth started to hurt last night and he woke up this morning and it was swollen and he had sores on the right side of his mouth and underneath both lips. Very painful to open his mouth. He is diabetic. Last A1c was 7.7. He did have a topical steroid 3 weeks ago. No oral steroids recently. He is not on inhaler. Denies recurrent thrush. No fever. No trouble breathing. No swelling of his tongue. [facility] Not on any PANFILO inhibitors. He did start taking an [id number] zinc supplement 3 weeks ago. He had put benzocaine on the mouth sores last night, has used this several times before previously. Review of Systems Constitutional: Negative. HENT: Positive for mouth sores. Negative for congestion. Respiratory: Negative. All other systems reviewed and are negative. PAST MEDICAL HISTORY Diagnosis Date Acute right-sided low back pain with right-sided sciatica 07/09/2016 Adhesive capsulitis of shoulder 12/04/2007 Adjustment disorder with depressed mood 10/16/2006 Anemia of chronic disease 02/14/2021 Benign non-nodular prostatic hyperplasia without lower urinary tract symptoms 10/03/2016 Bilateral chronic knee pain 10/10/2016 Bilateral occipital neuralgia 08/04/2015 Carotid stenosis, asymptomatic, bilateral 08/09/2015 US 08/2015: bilateral 20-40%, US 06/2017 Rt; 40-60% and Lt 60-80% monitored by cardio Cervical spondylosis 01/20/2012 Cervicalgia 10/16/2006 Cervicogenic headache 10/16/2015 Chronic post-traumatic headache 08/04/[address] Duque Chronic sinusitis Claudication (HCC) 06/04/2017 PVR's normal. Coronary atherosclerosis due to lipid rich plaque 01/20/[address] Kern. s/p RODDY to Ramus and RODDY to LAD placed 01/20/2017. COVID-19 virus infection 06/18/202106/2021 DDD (degenerative disc disease), cervical 01/20/2012 DDD (degenerative disc disease), lumbar 06/30/2016 Multi level, worse L2-L3 Diabetes (HCC) Diabetic eye exam ([facility]) 03/19/2017 Last done: 10/01/2018 Elevated LFTs 08/05/2015 Essential hypertension, benign GERD without esophagitis 06/12/2018 History of COVID-19 06/18/202106/2021 Illiteracy 10/09/2020 Leg pain, bilateral 06/04/2017 Lumbago 02/09/2010 * Dealing with on his own as of 08/2011 -- had a bad experience with a spine surgeon, nearly did surgery based on the wrong x-rays * Dates back to an injury while lifting 55 lbs Lumbar radiculopathy Migraine variant 07/22/2006 Since head injury around 1995 Mixed hyperlipidemia 08/04/2015 Neck pain, chronic 10/16/2015 Neuropathy 06/12/2018 Primary insomnia 03/02/2019 Radicular pain of right lower extremity 07/09/2016 S/P drug eluting coronary stent placement 01/20/201712/2016: 2 stents: Ramus of Circ and LAD S/P drug eluting coronary stent placement 01/20/201712/2016: 2 stents: Ramus of Circ and LAD, 05/10/20 RODDY to pLCx Sciatica 02/09/2010 Seborrheic dermatitis 08/04/2015 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 Apply sparingly to area for rash/itching. 80 g 0 metFORMIN ER (GLUCOPHAGE XR) 500 mg 24 hr tablet Take 2 tablets by mouth twice daily. 360 tablet 1 ferrous sulfate 325 mg (65 mg iron) tablet Take 1 tablet by mouth twice daily with meals. 60 tablet 1 pioglitazone (ACTOS) 45 mg tablet Take 1 tablet by mouth once daily. 90 tablet 1 docosahexaenoic acid/epa (FISH OIL ORAL) Take by mouth as directed. gabapentin (NEURONTIN) 600 mg tablet Take 600 mg by mouth daily at bedtime. pantoprazole DR (PROTONIX) 40 mg tablet Take 1 tablet by mouth daily before breakfast. Take on empty stomach, 1/2 hr before meal. Blood-Glucose Meter monitoring kit Glucose Meter of Choice - Kit - Dx: Type 2 DM - Uncontrolled E11.65 1 Each 0 Lancets lancets Test blood sugar(s) 2 times daily. Dx: Type 2 DM - Uncontrolled E11.65 Insulin: No 100 Each 11 blood sugar diagnostic (BLOOD GLUCOSE TEST) test strip Test blood sugar(s) 2 times daily. Dx: Type 2 DM - Uncontrolled E11.65 Insulin: No 100 Strip 11 fluticasone (FLONASE) 50 mcg/actuation nasal spray INSTILL 2 SPRAYS IN EACH NOSTRIL ONCE DAILY 16 g 11 nitroglycerin sublingual (NITROSTAT) 0.4 mg SL tablet Dissolve 1 tablet under the tongue every 5 minutes as needed for chest pain. 1 Bottle of 25 1 atorvastatin (LIPITOR) 80 mg tablet Take 1 tablet by mouth once daily. Managed by cardiology, Dr. Kern 30 tablet 11 clopidogrel (PLAVIX) 75 mg tablet Take 1 tablet by mouth once daily. Managed by [facility] 30 tablet 11 omega-3 fatty acids 1,000 mg cap Take 2 capsules by mouth once daily. 60 capsule 11 aspirin, enteric coated (ECOTRIN LOW STRENGTH) 81 mg EC tablet Take 1 tablet by mouth once daily. 30 tablet 11 Blood Pressure Monitor kit 1 Each once daily. 1 Kit 0 Blood Glucose Control High and Low (ACCU-CHEK MEGHANA CONTROL SOLN) soln Use as directed as indicated to check quality of test strips 1 Each 0 nystatin (MYCOSTATIN) 100,000 unit/mL suspension Take 5 mL by mouth four times daily. 1tsp swish in mouth for several minutes, then swallow (or expectorate) 4 times daily until gone. 200 mL 0 fluconazole (DIFLUCAN) 150 mg tablet Take 1 tablet by mouth once daily for 1 day. 1 tablet 0 No current facility-administered medications for this visit. PAST SURGICAL HISTORY Procedure Laterality Date 2D ECHO (EXEP) 01/16/2017 EF=60%, 1+ AK and TI CATARACT EXTRACTION HX Left 10/2019 CC CORONARY STENT 05/10/2020 RODDY to pLCx CC CORONARY STENT 12/2016 Ramus of Circ and LAD CC CORONARY STENT 11/20/2020 RODDY to pLCx and PTCA to OM2 CC CORONARY STENT 07/23/2021 PCI to prox Lt Circ in-stent restenosis then placement of RODDY COLONOSCOPY SCREENING 10/14/2022 COLONOSCOPY SCREENING 10/14/2022 repeat in 10 yrs EGD 10/14/2022 long seg Santos's without dysplasia, repeat in 2 years EGD W/O BRSH SPEC VARICIES INJ 10/14/2022 FECAL OCCULT BLOOD TEST 04/19/2019 Negative PAST SURGICAL HISTORY OF 1971 appendix PAST SURGICAL HISTORY OF right foot -- tendon surgery PAST SURGICAL HISTORY OF 1999 +/- Right hand -- trauma, aneurysm repair/CTS release -- Dr. Llanes PAST SURGICAL HISTORY OF 2008 torn cartilage -- arthroscopy, left knee PAST SURGICAL HISTORY OF 2017 right hand ulnar artery aneurism repair. STRESS TEST 07/01/2018 negative STRESS TEST NUCLEAR 07/2019 negative FAMILY HISTORY Problem Relation Age of Onset Lung Cancer Mother lung Coronary Artery Disease Sister former smoker Stroke Sister other (neurofibromatosis) Son from mother Social History Tobacco Use Smoking status: Never Smokeless tobacco: Former Types: Chew Quit date: 07/02/2014 Tobacco comments: 1 can of chewing tobacco every 3 days PT QUIT 2014 Vaping Use Vaping Use: Never used Substance Use Topics Alcohol use: No Drug use: No Objective BP 142/74 Pulse 68 Temp 36.4 C (97.5 F) Resp 16 Wt 78.9 kg (174 lb) SpO2 98% BMI 25.77 kg/m Physical Exam Vitals reviewed. Constitutional: Appearance: Normal appearance. HENT: Head: Normocephalic and atraumatic. Mouth/Throat: Comments: Patient has erythema with white patches on the right upper and lower lip extending to the buccal mucosa of the right side of the mouth. Very tender to this area on palpation. Some mild swelling of the lips on this side as well. Patient is edentulous. No swelling of the throat, tongue. Neurological: Mental Status: He is alert. Assessment and Plan ASSESSMENT/PLAN: 1. Mouth sores - ICD9: 528.9, ICD10: K13.79 Likely thrush. I did start him on nystatin mouthwash and given a prescription for 1 Diflucan. Discussed if swelling worsens or extends would be seen in the emergency department. Follow-up with PCP as needed. - [employer] Blanca Lee PA-C documented in this encounter [facility] 03-10-2023 Note HNO ID: [id number] Author: Ute Shine APRN.[employer] SUPER[employer]OR Service: ? Author Type: Nurse Practitioner Type: Progress Notes Filed: 03/10/2023 12:56 PM Note Text: Subjective The history is provided by the patient. No hazardous materials driver was used. HPI Michael Bates is a 68 year old male who presents today for CC of itchy rash on forearms The patients reports no new exposures and recently having been pulling weeds and realized poison coni present too late. The rash is discribed as Erythema, itchy Past treatments Yes, calamine lotion without relief. Does the patient have a personal history of: Seasonal allergies: no Recent travel: no Recent infections: no Beginning a new medication: no Symptoms are triggered by: nothing Other symtoms include: no systemic symptoms. BP 136/78 Pulse 71 Temp 36.7 ?C (98 ?F) Resp 18 Wt 79.3 kg (174 lb 12.8 oz) SpO2 99% BMI 25.89 kg/m? Social History Tobacco Use Smoking status: Never Smokeless tobacco: Former Types: Chew Quit date: 07/02/2014 Tobacco comments: 1 can of chewing tobacco every 3 days PT QUIT 2014 Vaping Use Vaping Use: Never used Substance Use Topics Alcohol use: No Drug use: No PAST MEDICAL HISTORY Diagnosis Date Acute right-sided low back pain with right-sided sciatica 07/09/2016 Adhesive capsulitis of shoulder 12/04/2007 Adjustment disorder with depressed mood 10/16/2006 Anemia of chronic disease 02/14/2021 Benign non-nodular prostatic hyperplasia without lower urinary tract symptoms 10/03/2016 Bilateral chronic knee pain 10/10/2016 Bilateral occipital neuralgia 08/04/2015 Carotid stenosis, asymptomatic, bilateral 08/09/2015 US 08/2015: bilateral 20-40%, US 06/2017 Rt; 40-60% and Lt 60-80% monitored by cardio Cervical spondylosis 01/20/2012 Cervicalgia 10/16/2006 Cervicogenic headache 10/16/2015 Chronic post-traumatic headache 08/04/[address] Duque Chronic sinusitis Claudication (HCC) 06/04/2017 PVR's normal. Coronary atherosclerosis due to lipid rich plaque 01/20/[address] Kern. s/p RODDY to Ramus and RODDY to LAD placed 01/20/2017. COVID-19 virus infection 06/18/202106/2021 DDD (degenerative disc disease), cervical 01/20/2012 DDD (degenerative disc disease), lumbar 06/30/2016 Multi level, worse L2-L3 Diabetes ([facility]) Diabetic eye exam ([facility]) 03/19/2017 Last done: 10/01/2018 Elevated LFTs 08/05/2015 Essential hypertension, benign GERD without esophagitis 06/12/2018 History of COVID-19 06/18/202106/2021 Illiteracy 10/09/2020 Leg pain, bilateral 06/04/2017 Lumbago 02/09/2010 * Dealing with on his own as of 08/2011 -- had a bad experience with a spine surgeon, nearly did surgery based on the wrong x-rays * Dates back to an injury while lifting 55 lbs Lumbar radiculopathy Migraine variant 07/22/2006 Since head injury around 1995 Mixed hyperlipidemia 08/04/2015 Neck pain, chronic 10/16/2015 Neuropathy 06/12/2018 Primary insomnia 03/02/2019 Radicular pain of right lower extremity 07/09/2016 S/P drug eluting coronary stent placement 01/20/201712/2016: 2 stents: Ramus of Circ and LAD S/P drug eluting coronary stent placement 01/20/201712/2016: 2 stents: Ramus of Circ and LAD, 05/10/20 RODDY to pLCx Sciatica 02/09/2010 Seborrheic dermatitis 08/04/2015 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 Musculoskeletal: Negative for joint pain and myalgias. Skin: Positive for itching and rash. All other systems reviewed and are negative. Objective Physical Exam Vitals and nursing note reviewed. Pulmonary: Effort: Pulmonary effort is normal. Skin: General: Skin is warm and dry. Findings: Erythema and rash present. Rash is papular and vesicular. Neurological: Mental Status: He is alert and oriented to person, place, and time. Psychiatric: Mood and Affect: Affect normal. ASSESSMENT/PLAN: 1. Rash - ICD9: 782.1, ICD10: R21 Appears to be contact dermatitis Triamcinolone cream as ordered Zyrtec 10 mg By mouth daily at bedtime Follow up with PCP as needed Diagnosis and treatment plan were discussed and questions were answered to the patient's satisfaction. Pt acknowledged understanding of concepts and follow up plan. Specific signs and symptoms that would indicate the need for higher level of care were discussed in detail warranting prompt ER evaluation. Ute Shine APRN.CNP [facility] 03-10-2023 Instructions Ute Shine APRN.CNP - 03/10/2023 12:56 PM EDT Start Triamcinolone 0.1% ointment twice daily for itch May use OTC benadryl or zyrtec as needed for itching Keep rash clean and dry. Allow to dry out. documented in this encounter [facility] 03-10-2023 History of Present illness Narrative Images from the original note were not included. Subjective The history is provided by the patient. No hazardous materials driver was used. HPI Michael Bates is a 68 year old male who presents today for CC of itchy rash on forearms The patients reports no new exposures and recently having been pulling weeds and realized poison coni present too late. The rash is discribed as Erythema, itchy Past treatments Yes, calamine lotion without relief. Does the patient have a personal history of: Seasonal allergies: no Recent travel: no Recent infections: no Beginning a new medication: no Symptoms are triggered by: nothing Other symtoms include: no systemic symptoms. BP 136/78 Pulse 71 Temp 36.7 C (98 F) Resp 18 Wt 79.3 kg (174 lb 12.8 oz) SpO2 99% BMI 25.89 kg/m Social History Tobacco Use Smoking status: Never Smokeless tobacco: Former Types: Chew Quit date: 07/02/2014 Tobacco comments: 1 can of chewing tobacco every 3 days PT QUIT 2014 Vaping Use Vaping Use: Never used Substance Use Topics Alcohol use: No Drug use: No PAST MEDICAL HISTORY Diagnosis Date Acute right-sided low back pain with right-sided sciatica 07/09/2016 Adhesive capsulitis of shoulder 12/04/2007 Adjustment disorder with depressed mood 10/16/2006 Anemia of chronic disease 02/14/2021 Benign non-nodular prostatic hyperplasia without lower urinary tract symptoms 10/03/2016 Bilateral chronic knee pain 10/10/2016 Bilateral occipital neuralgia 08/04/2015 Carotid stenosis, asymptomatic, bilateral 08/09/2015 US 08/2015: bilateral 20-40%, US 06/2017 Rt; 40-60% and Lt 60-80% monitored by cardio Cervical spondylosis 01/20/2012 Cervicalgia 10/16/2006 Cervicogenic headache 10/16/2015 Chronic post-traumatic headache 08/04/[address] Duque Chronic sinusitis Claudication (HCC) 06/04/2017 PVR's normal. Coronary atherosclerosis due to lipid rich plaque 01/20/[address] Kern. s/p RODDY to Ramus and RODDY to LAD placed 01/20/2017. COVID-19 virus infection 06/18/202106/2021 DDD (degenerative disc disease), cervical 01/20/2012 DDD (degenerative disc disease), lumbar 06/30/2016 Multi level, worse L2-L3 Diabetes (HCC) Diabetic eye exam (HCC) 03/19/2017 Last done: 10/01/2018 Elevated LFTs 08/05/2015 Essential hypertension, benign GERD without esophagitis 06/12/2018 History of COVID-19 06/18/202106/2021 Illiteracy 10/09/2020 Leg pain, bilateral 06/04/2017 Lumbago 02/09/2010 * Dealing with on his own as of 08/2011 -- had a bad experience with a spine surgeon, nearly did surgery based on the wrong x-rays * Dates back to an injury while lifting 55 lbs Lumbar radiculopathy Migraine variant 07/22/2006 Since head injury around 1995 Mixed hyperlipidemia 08/04/2015 Neck pain, chronic 10/16/2015 Neuropathy 06/12/2018 Primary insomnia 03/02/2019 Radicular pain of right lower extremity 07/09/2016 S/P drug eluting coronary stent placement 01/20/201712/2016: 2 stents: Ramus of Circ and LAD S/P drug eluting coronary stent placement 01/20/201712/2016: 2 stents: Ramus of Circ and LAD, 05/10/20 RODDY to pLCx Sciatica 02/09/2010 Seborrheic dermatitis 08/04/2015 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 Musculoskeletal: Negative for joint pain and myalgias. Skin: Positive for itching and rash. All other systems reviewed and are negative. Objective Physical Exam Vitals and nursing note reviewed. Pulmonary: Effort: Pulmonary effort is normal. Skin: General: Skin is warm and dry. Findings: Erythema and rash present. Rash is papular and vesicular. Neurological: Mental Status: He is alert and oriented to person, place, and time. Psychiatric: Mood and Affect: Affect normal. ASSESSMENT/PLAN: 1. Rash - ICD9: 782.1, ICD10: R21 Appears to be contact dermatitis Triamcinolone cream as ordered Zyrtec 10 mg By mouth daily at bedtime Follow up with PCP as needed Diagnosis and treatment plan were discussed and questions were answered to the patient's satisfaction. Pt acknowledged understanding of concepts and follow up plan. Specific signs and symptoms that would indicate the need for higher level of care were discussed in detail warranting prompt ER evaluation. Ute Shine APRN.[employer] SUPERVISOR documented in this encounter [facility] 02-24-2023 Miscellaneous Notes Pt notified of same, verbalizes understanding. Yamile Burns LPN Refill sent. Let patient know that his previous requests never were routed to us correctly. We apologize. Please let pt know when refilled. Last refill listed as historical med [facility] 11/28/22 NOV 06/04/23 Yamile Burns LPN documented in this encounter [facility] 02-17-2023 Note HNO ID: [id number] Author: Nadir Alves APRN.[employer] SUPERVISOR Service: ? Author Type: Nurse Practitioner Type: Progress Notes Filed: 02/17/2023 8:48 AM Note Text: Subjective HPI Nontoxic-appearing male presents urgent care chief complaint dermatitis. Duration of symptoms 3 days. Associated symptoms pruritic rash on face head arms. Patient states he was walking through some tall weeds prior to the rash starting. History of poison coni this feels similar. Has used OTC medications this has not helped. Most prominent symptom today is itching. No significant pain currently. No recent medication changes antibiotic use. Denies any fever body aches chills productive cough chest pain shortness of breath pleuritic pain hemoptysis nausea vomiting abdominal pain change in bowel or bladder habits. Past medical history prescription medication use and allergies reviewed. .Patient presents with: Rash: Poison coni all over x 3 days PAST MEDICAL HISTORY Diagnosis Date Acute right-sided low back pain with right-sided sciatica 07/09/2016 Adhesive capsulitis of shoulder 12/04/2007 Adjustment disorder with depressed mood 10/16/2006 Anemia of chronic disease 02/14/2021 Benign non-nodular prostatic hyperplasia without lower urinary tract symptoms 10/03/2016 Bilateral chronic knee pain 10/10/2016 Bilateral occipital neuralgia 08/04/2015 Carotid stenosis, asymptomatic, bilateral 08/09/2015 US 08/2015: bilateral 20-40%, US 06/2017 Rt; 40-60% and Lt 60-80% monitored by cardio Cervical spondylosis 01/20/2012 Cervicalgia 10/16/2006 Cervicogenic headache 10/16/2015 Chronic post-traumatic headache 08/04/[address] Duque Chronic sinusitis Claudication (HCC) 06/04/2017 PVR's normal. Coronary atherosclerosis due to lipid rich plaque 01/20/[address] Kern. s/p RODDY to Ramus and RODDY to LAD placed 01/20/2017. COVID-19 virus infection 06/18/202106/2021 DDD (degenerative disc disease), cervical 01/20/2012 DDD (degenerative disc disease), lumbar 06/30/2016 Multi level, worse L2-L3 Diabetes ([facility]) Diabetic eye exam ([facility]) 03/19/2017 Last done: 10/01/2018 Elevated LFTs 08/05/2015 Essential hypertension, benign GERD without esophagitis 06/12/2018 History of COVID-19 06/18/202106/2021 Illiteracy 10/09/2020 Leg pain, bilateral 06/04/2017 Lumbago 02/09/2010 * Dealing with on his own as of 08/2011 -- had a bad experience with a spine surgeon, nearly did surgery based on the wrong x-rays * Dates back to an injury while lifting 55 lbs Lumbar radiculopathy Migraine variant 07/22/2006 Since head injury around 1995 Mixed hyperlipidemia 08/04/2015 Neck pain, chronic 10/16/2015 Neuropathy 06/12/2018 Primary insomnia 03/02/2019 Radicular pain of right lower extremity 07/09/2016 S/P drug eluting coronary stent placement 01/20/201712/2016: 2 stents: Ramus of Circ and LAD S/P drug eluting coronary stent placement 01/20/201712/2016: 2 stents: Ramus of Circ and LAD, 05/10/20 RODDY to pLCx Sciatica 02/09/2010 Seborrheic dermatitis 08/04/2015 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, s/p repair Unspecified pruritic disorder 03/02/2009 PAST SURGICAL HISTORY Procedure Laterality Date 2D ECHO (EXEP) 01/16/2017 EF=60%, 1+ AK and TI CATARACT EXTRACTION HX Left 10/2019 CC CORONARY STENT 05/10/2020 RODDY to pLCx CC CORONARY STENT 12/2016 Ramus of Circ and LAD CC CORONARY STENT 11/20/2020 RODYD to pLCx and PTCA to OM2 CC CORONARY STENT 07/23/2021 PCI to prox Lt Circ in-stent restenosis then placement of RODDY COLONOSCOPY SCREENING 10/14/2022 COLONOSCOPY SCREENING 10/14/2022 repeat in 10 yrs EGD 10/14/2022 long seg Santos's without dysplasia, repeat in 2 years EGD W/O BRSH SPEC VARICIES INJ 10/14/2022 FECAL OCCULT BLOOD TEST 04/19/2019 Negative PAST SURGICAL HISTORY OF 1971 appendix PAST SURGICAL HISTORY OF right foot -- tendon surgery PAST SURGICAL HISTORY OF 1999 +/- Right hand -- trauma, aneurysm repair/CTS release -- Dr. Llanes PAST SURGICAL HISTORY OF 2008 torn cartilage -- arthroscopy, left knee PAST SURGICAL HISTORY OF 2017 right hand ulnar artery aneurism repair. STRESS TEST 07/01/2018 negative STRESS TEST NUCLEAR 07/2019 negative ALLERGIES Florinef [Fludrocortisone] and Perfumes MEDICATIONS metFORMIN ER (GLUCOPHAGE XR) 500 mg 24 hr tablet Take 2 tablets by mouth twice daily. ferrous sulfate 325 mg (65 mg iron) tablet Take 1 tablet by mouth twice daily with meals. pioglitazone (ACTOS) 45 mg tablet Take 1 tablet by mouth once daily. docosahexaenoic acid/epa (FISH OIL ORAL) Take by mouth as directed. gabapentin (NEURONTIN) 600 mg tablet Take 600 mg by mouth daily at bedtime. LORazepam (ATIVAN) 0.5 mg Take by mouth twice daily as needed. pantoprazole DR (PROTONIX) 40 mg tablet Take 1 tablet by mouth daily before breakfast. Take on empty stomach, 1/2 hr before meal. Blood-Glucose (more content not included)... [facility] 02-04-2023 Miscellaneous Notes This is being handled in another telephone call. See other message regarding this. Closing this note. Lisa Rabago Patient came in to refill lorazepam. Unable to refill please review and advise patient regarding prescription. Patient came in wanting to refill Lorazepam $ documented in this encounter [facility] 01-17-2023 Note HNO ID: [id number] Author: Alayna Urrutia MA Service: ? Author Type: Value Advisor Type: Progress Notes Filed: 01/20/2023 12:18 PM Note Text: Scan on 01/16/2023 4:10 PM by External Provider, JARADC: CT Scan Scan on 01/16/2023 4:11 PM by External Provider, HOANG: CT Scan Scan on 01/16/2023 8:47 PM by External Provider, PA-C: Consultation - Emergency Medicine Alayna Urrutia MA [facility] 01-16-2023 Note HNO ID: [id number] Author: Miladys Butt APRN.ASBESTOS REMOVAL SUPERVISOR Service: ? Author Type: Nurse Practitioner Type: Progress Notes Filed: 01/16/2023 1:14 PM Note Text: [facility] TRIAGE NOTE: Michael Bates is a 67 year old male who presents with head, neck and chest pain after 2 books full of baseball cards hit him on the head when they fell off a shelf. This happened last night. He states he laid there on the floor for 1/2 hour. He may have lost consciousness- he can't remember. He states the pain radiates from his scalp to his chest and his fingers on both hands are numb. He is offered evaluation in [facility] which would be limited to physical exam and xray. He elects to go to ER. Miladys Butt APRN.ASBESTOS REMOVAL SUPERVISOR [facility] 01-07-2023 Miscellaneous Notes Last refill Actos 11/29/22 Qty: 90 with 1 refill Last refill Iron 11/05/22 Qty: 60 with 1 refill Last refill Metformin 06/19/22 Qty: 360 with 1 refill SERENITY 11/28/22 NOV 06/04/23 Yamile uBrns LPN Patient has been identified by name and date of : Yes Last office visit in this department: Visit date not found RX INSTRUCTIONS: Patient aware RX will be sent to pharmacy. No need to notify patient. Patient phones requesting refills as follows: Requested Prescriptions No prescriptions requested or ordered in this encounter Please review and advise. JASE Jin documented in this encounter [facility] 11-29-2022 Miscellaneous Notes The following approved medication requests have been transmitted electronically. Requested Prescriptions Signed Prescriptions Disp Refills pioglitazone (ACTOS) 45 mg tablet 90 tablet 1 Sig: Take 1 tablet by mouth once daily. Authorizing Provider: MARTHA BOSTON PA-C TC to patient who verbalizes understanding of providers message. Patient agreeable to increasing Actos to 45mg. Prefers [facility] in [place]. Please advise. Thank you. CALLIE Rodriguez Let patient know that his a1c is 7.7%. I would like to see this under 7.5%. is he willing to increase actos to 45mg? His cholesterol was normal. PSA level is a little elevated. Recheck in 1 month. Blood counts are stable. documented in this encounter [facility] 11-28-2022 Note HNO ID: [id number] Author: Martha Boston PA-C Service: ? Author Type: Physician Corporate Statistical Financial Analyst Type: Progress Notes Filed: 11/28/2022 2:29 PM Note Text: Medicare Yearly Visit Medical B eligibilty date 12/30/04 Date of last exam 11/08/2021 PAST MEDICAL HISTORY Diagnosis Date Acute right-sided low back pain with right-sided sciatica 07/09/2016 Adhesive capsulitis of shoulder 12/04/2007 Adjustment disorder with depressed mood 10/16/2006 Anemia of chronic disease 02/14/2021 Benign non-nodular prostatic hyperplasia without lower urinary tract symptoms 10/03/2016 Bilateral chronic knee pain 10/10/2016 Bilateral occipital neuralgia 08/04/2015 Carotid stenosis, asymptomatic, bilateral 08/09/2015 US 08/2015: bilateral 20-40%, US 06/2017 Rt; 40-60% and Lt 60-80% monitored by cardio Cervical spondylosis 01/20/2012 Cervicalgia 10/16/2006 Cervicogenic headache 10/16/2015 Chronic post-traumatic headache 08/04/[address] Duque Chronic sinusitis Claudication ([facility]) 06/04/2017 PVR's normal. Coronary atherosclerosis due to lipid rich plaque 01/20/[address] Kern. s/p RODDY to Ramus and RODDY to LAD placed 01/20/2017. COVID-19 virus infection 06/18/202106/2021 DDD (degenerative disc disease), cervical 01/20/2012 DDD (degenerative disc disease), lumbar 06/30/2016 Multi level, worse L2-L3 Diabetes ([facility]) Diabetic eye exam ([facility]) 03/19/2017 Last done: 10/01/2018 Elevated LFTs 08/05/2015 Essential hypertension, benign GERD without esophagitis 06/12/2018 History of COVID-19 06/18/202106/2021 Illiteracy 10/09/2020 Leg pain, bilateral 06/04/2017 Lumbago 02/09/2010 * Dealing with on his own as of 08/2011 -- had a bad experience with a spine surgeon, nearly did surgery based on the wrong x-rays * Dates back to an injury while lifting 55 lbs Lumbar radiculopathy Migraine variant 07/22/2006 Since head injury around 1995 Mixed hyperlipidemia 08/04/2015 Neck pain, chronic 10/16/2015 Neuropathy 06/12/2018 Primary insomnia 03/02/2019 Radicular pain of right lower extremity 07/09/2016 S/P drug eluting coronary stent placement 01/20/201712/2016: 2 stents: Ramus of Circ and LAD S/P drug eluting coronary stent placement 01/20/201712/2016: 2 stents: Ramus of Circ and LAD, 05/10/20 RODDY to pLCx Sciatica 02/09/2010 Seborrheic dermatitis 08/04/2015 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, s/p repair Unspecified pruritic disorder 03/02/2009 PAST SURGICAL HISTORY Procedure Laterality Date 2D ECHO (EXEP) 01/16/2017 EF=60%, 1+ AK and TI CATARACT EXTRACTION HX Left 10/2019 CC CORONARY STENT 05/10/2020 RODDY to pLCx CC CORONARY STENT 12/2016 Ramus of Circ and LAD CC CORONARY STENT 11/20/2020 RODDY to pLCx and PTCA to OM2 CC CORONARY STENT 07/23/2021 PCI to prox Lt Circ in-stent restenosis then placement of RODDY COLONOSCOPY SCREENING 10/14/2022 COLONOSCOPY SCREENING 10/14/2022 repeat in 10 yrs EGD 10/14/2022 long seg Santos's without dysplasia, repeat in 2 years EGD W/O BRSH SPEC VARICIES INJ 10/14/2022 FECAL OCCULT BLOOD TEST 04/19/2019 Negative PAST SURGICAL HISTORY OF 1971 appendix PAST SURGICAL HISTORY OF right foot -- tendon surgery PAST SURGICAL HISTORY OF 1999 +/- Right hand -- trauma, aneurysm repair/CTS release -- Dr. Llanes PAST SURGICAL HISTORY OF 2008 torn cartilage -- arthroscopy, left knee PAST SURGICAL HISTORY OF 2017 right hand ulnar artery aneurism repair. STRESS TEST 07/01/2018 negative STRESS TEST NUCLEAR 07/2019 negative ALLERGIES: Florinef [Fludrocortisone] and Perfumes Medications reviewed: Yes FAMILY HISTORY Problem Relation Age of Onset Lung Cancer Mother lung Coronary Artery Disease Sister former smoker Stroke Sister other (neurofibromatosis) Son from mother SOCIAL HISTORY: Social History Tobacco Use Smoking status: Never Smokeless tobacco: Former Types: Chew Quit date: 07/02/2014 Tobacco comments: 1 can of chewing tobacco every 3 days PT QUIT 2014 Vaping Use Vaping Use: Never used Substance Use Topics Alcohol use: No Drug use: No Michael likes to exercise by walking around the house. He watches his diet for sodium, low fat and low cholesterol most of the time. List of current specialists seen: Cardio Neurology End of Live Planning discussed including patients advanced directive wishes: Yes I am willing to follow Michael's advanced directives. Depression Screening 09/09/2018 11/07/2020 06/25/2022 11/28/2022 PHQ-2 Score 0 0 1 0 PHQ-9 Score 0 - - - Depression screening tool completed and reviewed. Based on score and interview, patient is already diagnosed with depression. Screening tool discussed with patient, and I recommended no further intervention at this time and continuing current plan of care. Functional Ability/Safety Screen 1. Was the patient's timed Up and Go test unsteady or longer than 30 secon (more content not included)... [facility] 11-28-2022 History of Present illness Narrative Medicare Yearly Visit Medical B eligibilty date 12/30/04 Date of last exam 11/08/2021 PAST MEDICAL HISTORY Diagnosis Date Acute right-sided low back pain with right-sided sciatica 07/09/2016 Adhesive capsulitis of shoulder 12/04/2007 Adjustment disorder with depressed mood 10/16/2006 Anemia of chronic disease 02/14/2021 Benign non-nodular prostatic hyperplasia without lower urinary tract symptoms 10/03/2016 Bilateral chronic knee pain 10/10/2016 Bilateral occipital neuralgia 08/04/2015 Carotid stenosis, asymptomatic, bilateral 08/09/2015 US 08/2015: bilateral 20-40%, US 06/2017 Rt; 40-60% and Lt 60-80% monitored by cardio Cervical spondylosis 01/20/2012 Cervicalgia 10/16/2006 Cervicogenic headache 10/16/2015 Chronic post-traumatic headache 08/04/[address] Duque Chronic sinusitis Claudication (HCC) 06/04/2017 PVR's normal. Coronary atherosclerosis due to lipid rich plaque 01/20/[address] Kern. s/p RODDY to Ramus and RODDY to LAD placed 01/20/2017. COVID-19 virus infection 06/18/202106/2021 DDD (degenerative disc disease), cervical 01/20/2012 DDD (degenerative disc disease), lumbar 06/30/2016 Multi level, worse L2-L3 Diabetes (HCC) Diabetic eye exam (HCC) 03/19/2017 Last done: 10/01/2018 Elevated LFTs 08/05/2015 Essential hypertension, benign GERD without esophagitis 06/12/2018 History of COVID-19 06/18/202106/2021 Illiteracy 10/09/2020 Leg pain, bilateral 06/04/2017 Lumbago 02/09/2010 * Dealing with on his own as of 08/2011 -- had a bad experience with a spine surgeon, nearly did surgery based on the wrong x-rays * Dates back to an injury while lifting 55 lbs Lumbar radiculopathy Migraine variant 07/22/2006 Since head injury around 1995 Mixed hyperlipidemia 08/04/2015 Neck pain, chronic 10/16/2015 Neuropathy 06/12/2018 Primary insomnia 03/02/2019 Radicular pain of right lower extremity 07/09/2016 S/P drug eluting coronary stent placement 01/20/201712/2016: 2 stents: Ramus of Circ and LAD S/P drug eluting coronary stent placement 01/20/201712/2016: 2 stents: Ramus of Circ and LAD, 05/10/20 RODDY to pLCx Sciatica 02/09/2010 Seborrheic dermatitis 08/04/2015 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, s/p repair Unspecified pruritic disorder 03/02/2009 PAST SURGICAL HISTORY Procedure Laterality Date 2D ECHO (EXEP) 01/16/2017 EF=60%, 1+ AK and TI CATARACT EXTRACTION HX Left 10/2019 CC CORONARY STENT 05/10/2020 RODDY to pLCx CC CORONARY STENT 12/2016 Ramus of Circ and LAD CC CORONARY STENT 11/20/2020 RODDY to pLCx and PTCA to OM2 CC CORONARY STENT 07/23/2021 PCI to prox Lt Circ in-stent restenosis then placement of RODDY COLONOSCOPY SCREENING 10/14/2022 COLONOSCOPY SCREENING 10/14/2022 repeat in 10 yrs EGD 10/14/2022 long seg Santos's without dysplasia, repeat in 2 years EGD W/O BRSH SPEC VARICIES INJ 10/14/2022 FECAL OCCULT BLOOD TEST 04/19/2019 Negative PAST SURGICAL HISTORY OF 1971 appendix PAST SURGICAL HISTORY OF right foot -- tendon surgery PAST SURGICAL HISTORY OF 1999 +/- Right hand -- trauma, aneurysm repair/CTS release -- Dr. Llanes PAST SURGICAL HISTORY OF 2008 torn cartilage -- arthroscopy, left knee PAST SURGICAL HISTORY OF 2017 right hand ulnar artery aneurism repair. STRESS TEST 07/01/2018 negative STRESS TEST NUCLEAR 07/2019 negative ALLERGIES: Florinef [Fludrocortisone] and Perfumes Medications reviewed: Yes FAMILY HISTORY Problem Relation Age of Onset Lung Cancer Mother lung Coronary Artery Disease Sister former smoker Stroke Sister other (neurofibromatosis) Son from mother SOCIAL HISTORY: Social History Tobacco Use Smoking status: Never Smokeless tobacco: Former Types: Chew Quit date: 07/02/2014 Tobacco comments: 1 can of chewing tobacco every 3 days PT QUIT 2014 Vaping Use Vaping Use: Never used Substance Use Topics Alcohol use: No Drug use: No Michael likes to exercise by walking around the house. He watches his diet for sodium, low fat and low cholesterol most of the time. List of current specialists seen: Cardio Neurology End of Live Planning discussed including patients advanced directive wishes: Yes I am willing to follow Michael's advanced directives. Depression Screening 09/09/2018 11/07/2020 06/25/2022 11/28/2022 PHQ-2 Score 0 0 1 0 PHQ-9 Score 0 - - - Depression screening tool completed and reviewed. Based on score and interview, patient is already diagnosed with depression. Screening tool discussed with patient, and I recommended no further intervention at this time and continuing current plan of care. Functional Ability/Safety Screen 1. Was the patient's timed Up and Go test unsteady or longer than 30 seconds? No 2. Does the patient need help with the phone, transportation, shopping,preparing meals, housework, laundry, medications or managing money? No 3. Does your home have rugs in the hallway, lack of grab bars in the bathroom (Y), lack of handrails on the stairs or have poor lighting? No Hearing Evaluation: normal PHYSICAL EXAM BP 136/66 (BP Site: Left Arm, BP Position: Sitting, BP Cuff Size: Large Adult) Pulse 66 Temp 36.7 C (98.1 F) Resp 16 Ht 175 cm (5' 8.9 ) Wt 78.5 kg (173 lb) BMI 25.62 kg/m Alert and oriented X 3: YES Body mass index is 25.62 kg/m . Visual acuity: sees opto ASSESSMENT/PLAN: 67 year old male The following prevention plan was discussed during the office visit and provided to the patient: See below Martha Boston PA-C Chief Complaint No chief complaint on file. HPI Michael Bates is a 67 year old male who presents here today for extensive exam. Patient with hx of DM2, hyperlipidemia, HTN, GERD, adjustment disorder, Carotid stenosis, BPH, chonic neck pain, and those as below. Patient continues to struggle with episodes of chest pain associated with syncopal episodes. Has been following cardio and neuro for this. Currently has loop recorder. Last episode was a couple days ago. Otherwise patient states he is doing okay. Past medical history, appointments, medications, allergies reviewed. Previous Medical History PAST MEDICAL HISTORY Diagnosis Date Acute right-sided low back pain with right-sided sciatica 07/09/2016 Adhesive capsulitis of shoulder 12/04/2007 Adjustment disorder with depressed mood 10/16/2006 Anemia of chronic disease 02/14/2021 Benign non-nodular prostatic hyperplasia without lower urinary tract symptoms 10/03/2016 Bilateral chronic knee pain 10/10/2016 Bilateral occipital neuralgia 08/04/2015 Carotid stenosis, asymptomatic, bilateral 08/09/2015 US 08/2015: bilateral 20-40%, US 06/2017 Rt; 40-60% and Lt 60-80% monitored by cardio Cervical spondylosis 01/20/2012 Cervicalgia 10/16/2006 Cervicogenic headache 10/16/2015 Chronic post-traumatic headache 08/04/[address] Duque Chronic sinusitis Claudication (HCC) 06/04/2017 PVR's normal. Coronary atherosclerosis due to lipid rich plaque 01/20/[address] Kern. s/p RODDY to Ramus and RODDY to LAD placed 01/20/2017. COVID-19 virus infection 06/18/202106/2021 DDD (degenerative disc disease), cervical 01/20/2012 DDD (degenerative disc disease), lumbar 06/30/2016 Multi level, worse L2-L3 Diabetes (HCC) Diabetic eye exam (HCC) 03/19/2017 Last done: 10/01/2018 Elevated LFTs 08/05/2015 Essential hypertension, benign GERD without esophagitis 06/12/2018 History of COVID-19 06/18/202106/2021 Illiteracy 10/09/2020 Leg pain, bilateral 06/04/2017 Lumbago 02/09/2010 * Dealing with on his own as of 08/2011 -- had a bad experience with a spine surgeon, nearly did surgery based on the wrong x-rays * Dates back to an injury while lifting 55 lbs Lumbar radiculopathy Migraine variant 07/22/2006 Since head injury around 1995 Mixed hyperlipidemia 08/04/2015 Neck pain, chronic 10/16/2015 Neuropathy 06/12/2018 Primary insomnia 03/02/2019 Radicular pain of right lower extremity 07/09/2016 S/P drug eluting coronary stent placement 01/20/201712/2016: 2 stents: Ramus of Circ and LAD S/P drug eluting coronary stent placement 01/20/201712/2016: 2 stents: Ramus of Circ and LAD, 05/10/20 RODDY to pLCx Sciatica 02/09/2010 Seborrheic dermatitis 08/04/2015 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, s/p repair Unspecified pruritic disorder 03/02/2009 Previous Surgical History PAST SURGICAL HISTORY Procedure Laterality Date 2D ECHO (EXEP) 01/16/2017 EF=60%, 1+ AK and TI CATARACT EXTRACTION HX Left 10/2019 CC CORONARY STENT 05/10/2020 RODDY to pLCx CC CORONARY STENT 12/2016 Ramus of Circ and LAD CC CORONARY STENT 11/20/2020 RODDY to pLCx and PTCA to OM2 CC CORONARY STENT 07/23/2021 PCI to prox Lt Circ in-stent restenosis then placement of RODDY COLONOSCOPY SCREENING 10/14/2022 COLONOSCOPY SCREENING 10/14/2022 repeat in 10 yrs EGD 10/14/2022 long seg Santos's without dysplasia, repeat in 2 years EGD W/O BRSH SPEC VARICIES INJ 10/14/2022 FECAL OCCULT BLOOD TEST 04/19/2019 Negative PAST SURGICAL HISTORY OF 1971 appendix PAST SURGICAL HISTORY OF right foot -- tendon surgery PAST SURGICAL HISTORY OF 1999 +/- Right hand -- trauma, aneurysm repair/CTS release -- Dr. Llanes PAST SURGICAL HISTORY OF 2008 torn cartilage -- arthroscopy, left knee PAST SURGICAL HISTORY OF 2017 right hand ulnar artery aneurism repair. STRESS TEST 07/01/2018 negative STRESS TEST NUCLEAR 07/2019 negative Family History FAMILY HISTORY Problem Relation Age of Onset Lung Cancer Mother lung Coronary Artery Disease Sister former smoker Stroke Sister other (neurofibromatosis) Son from mother Patient Allergies ALLERGIES Allergen Reactions Florinef [Fludrocor* Angioedema Perfumes Other: See Comments sneezing Current Medications Current Outpatient Medications on File Prior to Visit Medication Sig docosahexaenoic acid/epa (FISH OIL ORAL) Take by mouth as directed. gabapentin (NEURONTIN) 600 mg tablet Take 600 mg by mouth daily at bedtime. LORazepam (ATIVAN) 0.5 mg Take by mouth twice daily as needed. ferrous sulfate 325 mg (65 mg iron) tablet Take 1 tablet by mouth twice daily with meals. pantoprazole DR (PROTONIX) 40 mg tablet Take 1 tablet by mouth daily before breakfast. Take on empty stomach, 1/2 hr before meal. pioglitazone (ACTOS) 30 mg tablet Take 1 tablet by mouth once daily. Blood-Glucose Meter monitoring kit Glucose Meter of Choice - Kit - Dx: Type 2 DM - Uncontrolled E11.65 Lancets lancets Test blood sugar(s) 2 times daily. Dx: Type 2 DM - Uncontrolled E11.65 Insulin: No blood sugar diagnostic (BLOOD GLUCOSE TEST) test strip Test blood sugar(s) 2 times daily. Dx: Type 2 DM - Uncontrolled E11.65 Insulin: No fluticasone (FLONASE) 50 mcg/actuation nasal spray INSTILL 2 SPRAYS IN EACH NOSTRIL ONCE DAILY metFORMIN ER (GLUCOPHAGE XR) 500 mg 24 hr tablet Take 2 tablets by mouth twice daily. nitroglycerin sublingual (NITROSTAT) 0.4 mg SL tablet Dissolve 1 tablet under the tongue every 5 minutes as needed for chest pain. atorvastatin (LIPITOR) 80 mg tablet Take 1 tablet by mouth once daily. Managed by cardiology, Dr. Kern clopidogrel (PLAVIX) 75 mg tablet Take 1 tablet by mouth once daily. Managed by [facility] omega-3 fatty acids 1,000 mg cap Take 2 capsules by mouth once daily. aspirin, enteric coated (ECOTRIN LOW STRENGTH) 81 mg EC tablet Take 1 tablet by mouth once daily. Blood Pressure Monitor kit 1 Each once daily. Blood Glucose Control High and Low (ACCU-CHEK MEGHANA CONTROL SOLN) soln Use as directed as indicated to check quality of test strips pyridostigmine (MESTINON) 60 mg tablet Take 1 tablet by mouth twice daily. (Patient not taking: Reported on 11/28/2022) sertraline (ZOLOFT) 50 mg tablet 1 tablet by mouth once a day. (Patient not taking: Reported on 11/28/2022) No current facility-administered medications on file prior to visit. Social History Social History Tobacco Use Smoking status: Never Smokeless tobacco: Former Types: Chew Quit date: 07/02/2014 Tobacco comments: 1 can of chewing tobacco every 3 days PT QUIT 2014 Vaping Use Vaping Use: Never used Substance Use Topics Alcohol use: No Drug use: No Review of Symptoms REVIEW OF SYSTEMS GENERAL: No weight loss, malaise or fevers HEENT: No changes in hearing or vision, no nose bleeds or other nasal problems NECK: Negative for lumps, goiter, pain and significant neck swelling RESPIRATORY: Negative for cough, hemoptysis, wheezing, COPD, dyspnea or shortness of breath CARDIOVASCULAR: See HPI, continues with cardio GI: Negative for abdominal discomfort, blood in stools or black stools, change in bowel habit, heart burn, nausea, vomiting : No history of dysuria, frequency or incontinence MUSCULOSKELETAL: Negative for joint pain or swelling, back pain or muscle pain SKIN: Negative for lesions, rash, and itching PSYCH: Negative for sleep disturbance, mood disorder and recent psychosocial stressors HEMATOLOGY/LYMPHOLOGY: Negative for prolonged bleeding, bruising easily or swollen nodes ENDOCRINE: Negative for cold or heat intolerance, polyuria, polydipsia and goiter NEURO: see hpi. Chronic headaches and episodes of syncope, EXAM: BP 136/66 (BP Site: Left Arm, BP Position: Sitting, BP Cuff Size: Large Adult) Pulse 66 Temp 36.7 C (98.1 F) Resp 16 Ht 175 cm (5' 8.9 ) Wt 78.5 kg (173 lb) BMI 25.62 kg/m General Appearance: Well appearing, alert, in no acute distress, well-hydrated, well nourished.. Skin: Skin color, texture, turgor normal, no suspicious rashes or lesions. Head: Normocephalic, no masses, lesions, tenderness or abnormalities. Eyes: Anicteric sclera. Pupils are equally round and reactive to light. Extraocular movements are intact. . Ears: External ears normal, canals clear, TMs pearly beltre. Nose/Sinuses: Nares normal, septum midline, mucosa normal, no drainage or sinus tenderness. Neck: Supple, no adenopathy; thyroid symmetric, normal size, no bruits. Lungs: Lungs clear to auscultation. No wheezing, rhonchi, rales.. Heart: RRR without murmur, gallop, or rubs. No ectopy. Abdomen: Normal abdominal exam, Abdomen soft, non-tender. Bowel sounds normal. No masses, organomegaly. Extremities: No deformities, edema, skin discoloration, clubbing or cyanosis. Good capillary refill. . Peripheral Pulses: Normal. Neurologic: Gait normal. Reflexes normal and symmetric. Sensation grossly intact.. Health Maintenance List DILATED RETINAL EXAM due on 01/09/2022 ADVANCE DIRECTIVE DISCUSSION due on 09/01/2022 DEPRESSION ASSESSMENT due on 09/01/2022 HBA1C due on 11/10/2022 URINE ALBUMIN:CREATININE RATIO due on 11/02/2022 COVID-19 VACCINE(2 - Pfizer series) due on 08/21/2023 LDL CHOLESTEROL due on 04/17/2023 DIABETIC FOOT EXAM due on 05/13/2023 ANNUAL PCP TEAM CHRONIC DISEASE VISIT due on 10/04/2023 BP CONTROLLED (<130/80) due on 11/22/2023 DTAP,TDAP,TD(4 - Td or Tdap) due on 03/01/2031 COLORECTAL CANCER SCREENING due on 10/14/2032 INFLUENZA Completed HEPATITIS C SCREENING Completed SHINGRIX VACCINE Completed PNEUMOCOCCAL: 65+ Completed Data reviewed ASSESSMENT/PLAN: 1. Medicare annual wellness visit, subsequent - ICD9: V70.0, ICD10: Z00.00 (primary diagnosis) - Counseled on healthy diet and regular exercise 2. Advance directive discussed with patient - ICD9: V65.49, ICD10: Z71.89 Patient does have one, but it is out of date and he needs to get this updated 3. Type 2 diabetes mellitus with diabetic neuropathy, without long-term current use of insulin (HCC) - ICD9: 250.60, 357.2, ICD10: E11.40 Await labs - URINALYSIS, WITH MICROSCOPIC - ALBUMIN/CREAT RATIO RND UR - HGB A1C - COMP METABOLIC PANEL - CONSULT TO OPHTHALMOLOGY 4. Uncontrolled type 2 diabetes mellitus with hyperglycemia (HCC) - ICD9: 250.02, ICD10: E11.65 As above 5. Essential hypertension, benign - ICD9: 401.1, ICD10: I10 - good control - home readings are significantly lower than office readings. Advised patient to bring in bp machine to next OV. - Recommended regular aerobic exercise. - Recommend home blood pressure monitoring, to bring results in on next visit - Goal of BP <130/80 - URINALYSIS, WITH MICROSCOPIC - COMP METABOLIC PANEL 6. Mixed hyperlipidemia - ICD9: 272.2, ICD10: E78.2 - to be determined upon return of lab results - Encouraged following a low carbohydrate, healthy oil intake diet. - Continue current therapy. - LIPID PANEL, NONFASTING 7. Chronic post-traumatic headache, not intractable - ICD9: 339.22, ICD10: G44.329 Cont with neuro 8. Iron deficiency anemia, unspecified iron deficiency anemia type - ICD9: 280.9, ICD10: D50.9 - CBC + DIFF 9. Disorder of prostate - ICD9: 602.9, ICD10: N42.9 - PSA/PROSTSPECAG DIAG 10. Coronary atherosclerosis due to lipid rich plaque - ICD9: 414.3, ICD10: I25.10, I25.83 Continue with cardio 11. GERD without esophagitis - ICD9: 530.81, ICD10: K21.9 Stable. Patient to follow up in 6 month routine. Sooner prn. Martha Boston PA-C I spent a total of 45 minutes on the date of the service which included preparing to see the patient, [id number] patient care, completing clinical documentation, obtaining and/or reviewing separately obtained history, performing a medically appropriate examination, counseling and educating the patient/family/caregiver, ordering medications, tests, or procedures, communicating with other HCPs (not separately reported), and communicating results to the patient/family/caregiver. documented in this encounter [facility] 11-21-2022 Note HNO ID: [id number] Author: Jenna Jim APRN.MIGEL Service: ? Author Type: Nurse Practitioner Type: Progress Notes Filed: 11/21/2022 10:34 AM Note Text: [facility] [place] Follow-up Visit Follow-up note November 21, 2022 HPI: Mr. Bates presents today for a follow-up visit. Per his previous visit on 09/19/22: R55 Syncope, unspecified syncope type (primary encounter diagnosis) I95.1 Orthostatic hypotension Comment: Patient previously seen in general neurology clinic in January of 2022 for multiple syncopal episodes since 10/2021. Episodes can be preceded by a lightheaded feeling, tinnitus, or numbness to both legs and can last for up to 30 minutes. Previous extensive workup completed and unremarkable including MRI and CT brain as well as cardiac workup including cardiac cath, echo, Loop Recorder. Episodes likely attributed to orthostatic blood pressure and he has started trial of multiple medications. Pt reports allergic reaction to Florinef and unfortunately, due to cost, is unable to continue midodrine. He has also tried to treat BP with use of amantadine with SE as well as Sudafed; he has since stopped both medications. Of note, he did have appointment with neurology outside [facility] earlier today with recommendations as reported above (note, these medications have been reviewed in the past after previous autonomic appt and amitriptyline has since been DC'd). Discussed that we can trial small decrease in gabapentin dose to determine if there is any affect on BP, however, must consider that head and neck pain may worsen with decrease in medication. He would like to attempt to decrease dose and will decrease to 600mg BID. New prescription written. In addition, discussed with autonomic clinic and will trial alternative medication if reduction of gabapentin does not lead to significant change in BP. Will begin pyridostigmine 60mg QHS with increase to BID after two weeks if tolerating. SE reviewed. I have requested that he begin pyridostigmine 1-2 weeks following reduction in gabapentin to assess for any changes with gabapentin reduction prior to starting new medication. He reports that the dizziness is only once in a while. Not as severe. Has not passed out in some time. Started pyridostigmine. Only taking 60mg QHS. He did decrease the gabapentin dose to 600mg BID. He does not feel that his pain has worsened since decreasing the dose. Has not had recent follow up with cardiology. Denies new symptoms including weakness, numbness, tingling, speech changes, vision changes. Occasional tremor to both hands when doing an activity. Denies gait changes. Once in a while acts out dreams. Handwriting has not changed; still messy. Denies difficulty with fine motor coordination. Not following with Dr. Gold any longer. Chronic chest pain; still cannot find origin. Following with Dr. Kern. Checks BP and HR at home. From 11/19/22 to 11/21/22 pt has maintained BP in 80's-90's/50's with one outlier orf 79/39. Checks consistently at 8am and 8pm. Has been using pain patches for head/neck pain. Would like to decrease and stop his gabapentin as he feels it is not providing relief of sx. PAST MEDICAL HISTORY Diagnosis Date Acute right-sided low back pain with right-sided sciatica 07/09/2016 Adhesive capsulitis of shoulder 12/04/2007 Adjustment disorder with depressed mood 10/16/2006 Anemia of chronic disease 02/14/2021 Benign non-nodular prostatic hyperplasia without lower urinary tract symptoms 10/03/2016 Bilateral chronic knee pain 10/10/2016 Bilateral occipital neuralgia 08/04/2015 Carotid stenosis, asymptomatic, bilateral 08/09/2015 US 08/2015: bilateral 20-40%, US 06/2017 Rt; 40-60% and Lt 60-80% monitored by cardio Cervical spondylosis 01/20/2012 Cervicalgia 10/16/2006 Cervicogenic headache 10/16/2015 Chronic post-traumatic headache 08/04/[address] Duque Chronic sinusitis Claudication (HCC) 06/04/2017 PVR's normal. Coronary atherosclerosis due to lipid rich plaque 01/20/[address] Kern. s/p RODDY to Ramus and RODDY to LAD placed 01/20/2017. COVID-19 virus infection 06/18/202106/2021 DDD (degenerative disc disease), cervical 01/20/2012 DDD (degenerative disc disease), lumbar 06/30/2016 Multi level, worse L2-L3 Diabetes (HCC) Diabetic eye exam (HCC) 03/19/2017 Last done: 10/01/2018 Elevated LFTs 08/05/2015 Essential hypertension, benign GERD without esophagitis 06/12/2018 History of COVID-19 06/18/202106/2021 Illiteracy 10/09/2020 Leg pain, bilateral 06/04/2017 Lumbago 02/09/2010 * Dealing with on his own as of 08/2011 -- had a bad experience with a spine surgeon, nearly did surgery based on the wrong x-rays * Dates back to an injury while lifting 55 lbs Lumbar radiculopathy Migraine variant 07/22/2006 Since head injury around 1995 Mixed hyperlipidemia 08/04/2015 Neck pain, chronic 10/16/2015 Neuropath (more content not included)... [facility] 11-21-2022 Instructions Jenna Jim APRN.MIGEL - 11/21/2022 10:11 AM EDT Gabapentin Week one: 300mg in morning and 600mg at night Week two : 300mg twice daily Week three: 300mg once daily Week four: 300mg every other day Week five: stop medication *If at any point during taper pain should worsen, stop tapering schedule and continue current dose (at that time) of gabapentin. documented in this encounter [facility] 11-21-2022 History of Present illness Narrative Images from the original note were not included. [facility] [place] Follow-up Visit Follow-up note November 21, 2022 HPI: Mr. Bates presents today for a follow-up visit. Per his previous visit on 09/19/22: R55 Syncope, unspecified syncope type (primary encounter diagnosis) I95.1 Orthostatic hypotension Comment: Patient previously seen in general neurology clinic in January of 2022 for multiple syncopal episodes since 10/2021. Episodes can be preceded by a lightheaded feeling, tinnitus, or numbness to both legs and can last for up to 30 minutes. Previous extensive workup completed and unremarkable including MRI and CT brain as well as cardiac workup including cardiac cath, echo, Loop Recorder. Episodes likely attributed to orthostatic blood pressure and he has started trial of multiple medications. Pt reports allergic reaction to Florinef and unfortunately, due to cost, is unable to continue midodrine. He has also tried to treat BP with use of amantadine with SE as well as Sudafed; he has since stopped both medications. Of note, he did have appointment with neurology outside [facility] earlier today with recommendations as reported above (note, these medications have been reviewed in the past after previous autonomic appt and amitriptyline has since been DC'd). Discussed that we can trial small decrease in gabapentin dose to determine if there is any affect on BP, however, must consider that head and neck pain may worsen with decrease in medication. He would like to attempt to decrease dose and will decrease to 600mg BID. New prescription written. In addition, discussed with autonomic clinic and will trial alternative medication if reduction of gabapentin does not lead to significant change in BP. Will begin pyridostigmine 60mg QHS with increase to BID after two weeks if tolerating. SE reviewed. I have requested that he begin pyridostigmine 1-2 weeks following reduction in gabapentin to assess for any changes with gabapentin reduction prior to starting new medication. He reports that the dizziness is only once in a while. Not as severe. Has not passed out in some time. Started pyridostigmine. Only taking 60mg QHS. He did decrease the gabapentin dose to 600mg BID. He does not feel that his pain has worsened since decreasing the dose. Has not had recent follow up with cardiology. Denies new symptoms including weakness, numbness, tingling, speech changes, vision changes. Occasional tremor to both hands when doing an activity. Denies gait changes. Once in a while acts out dreams. Handwriting has not changed; still messy. Denies difficulty with fine motor coordination. Not following with Dr. Gold any longer. Chronic chest pain; still cannot find origin. Following with Dr. Kern. Checks BP and HR at home. From 11/19/22 to 11/21/22 pt has maintained BP in 80's-90's/50's with one outlier orf 79/39. Checks consistently at 8am and 8pm. Has been using pain patches for head/neck pain. Would like to decrease and stop his gabapentin as he feels it is not providing relief of sx. PAST MEDICAL HISTORY Diagnosis Date Acute right-sided low back pain with right-sided sciatica 07/09/2016 Adhesive capsulitis of shoulder 12/04/2007 Adjustment disorder with depressed mood 10/16/2006 Anemia of chronic disease 02/14/2021 Benign non-nodular prostatic hyperplasia without lower urinary tract symptoms 10/03/2016 Bilateral chronic knee pain 10/10/2016 Bilateral occipital neuralgia 08/04/2015 Carotid stenosis, asymptomatic, bilateral 08/09/2015 US 08/2015: bilateral 20-40%, US 06/2017 Rt; 40-60% and Lt 60-80% monitored by cardio Cervical spondylosis 01/20/2012 Cervicalgia 10/16/2006 Cervicogenic headache 10/16/2015 Chronic post-traumatic headache 08/04/[address] Duque Chronic sinusitis Claudication (HCC) 06/04/2017 PVR's normal. Coronary atherosclerosis due to lipid rich plaque 01/20/[address] Kern. s/p RODDY to Ramus and RODDY to LAD placed 01/20/2017. COVID-19 virus infection 06/18/202106/2021 DDD (degenerative disc disease), cervical 01/20/2012 DDD (degenerative disc disease), lumbar 06/30/2016 Multi level, worse L2-L3 Diabetes (HCC) Diabetic eye exam (HCC) 03/19/2017 Last done: 10/01/2018 Elevated LFTs 08/05/2015 Essential hypertension, benign GERD without esophagitis 06/12/2018 History of COVID-19 06/18/202106/2021 Illiteracy 10/09/2020 Leg pain, bilateral 06/04/2017 Lumbago 02/09/2010 * Dealing with on his own as of 08/2011 -- had a bad experience with a spine surgeon, nearly did surgery based on the wrong x-rays * Dates back to an injury while lifting 55 lbs Lumbar radiculopathy Migraine variant 07/22/2006 Since head injury around 1995 Mixed hyperlipidemia 08/04/2015 Neck pain, chronic 10/16/2015 Neuropathy 06/12/2018 Primary insomnia 03/02/2019 Radicular pain of right lower extremity 07/09/2016 S/P drug eluting coronary stent placement 01/20/201712/2016: 2 stents: Ramus of Circ and LAD S/P drug eluting coronary stent placement 01/20/201712/2016: 2 stents: Ramus of Circ and LAD, 05/10/20 RODDY to pLCx Sciatica 02/09/2010 Seborrheic dermatitis 08/04/2015 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, s/p repair Unspecified pruritic disorder 03/02/2009 PAST SURGICAL HISTORY Procedure Laterality Date 2D ECHO (EXEP) 01/16/2017 EF=60%, 1+ AK and TI CATARACT EXTRACTION HX Left 10/2019 CC CORONARY STENT 05/10/2020 RODDY to pLCx CC CORONARY STENT 12/2016 Ramus of Circ and LAD CC CORONARY STENT 11/20/2020 RODDY to pLCx and PTCA to OM2 CC CORONARY STENT 07/23/2021 PCI to prox Lt Circ in-stent restenosis then placement of RODDY COLONOSCOPY SCREENING 10/14/2022 COLONOSCOPY SCREENING 10/14/2022 repeat in 10 yrs EGD 10/14/2022 long seg Santos's without dysplasia, repeat in 2 years EGD W/O BRSH SPEC VARICIES INJ 10/14/2022 FECAL OCCULT BLOOD TEST 04/19/2019 Negative PAST SURGICAL HISTORY OF 1971 appendix PAST SURGICAL HISTORY OF right foot -- tendon surgery PAST SURGICAL HISTORY OF 1999 +/- Right hand -- trauma, aneurysm repair/CTS release -- Dr. Llanes PAST SURGICAL HISTORY OF 2008 torn cartilage -- arthroscopy, left knee PAST SURGICAL HISTORY OF 2017 right hand ulnar artery aneurism repair. STRESS TEST 07/01/2018 negative STRESS TEST NUCLEAR 07/2019 negative Current Outpatient Medications on File Prior to Visit Medication Sig ferrous sulfate 325 mg (65 mg iron) tablet Take 1 tablet by mouth twice daily with meals. sertraline (ZOLOFT) 50 mg tablet 1 tablet by mouth once a day. predniSONE (DELTASONE) 20 mg tablet One tab PO daily per cardio. pantoprazole DR (PROTONIX) 40 mg tablet Take 1 tablet by mouth daily before breakfast. Take on empty stomach, 1/2 hr before meal. pioglitazone (ACTOS) 30 mg tablet Take 1 tablet by mouth once daily. Blood-Glucose Meter monitoring kit Glucose Meter of Choice - Kit - Dx: Type 2 DM - Uncontrolled E11.65 Lancets lancets Test blood sugar(s) 2 times daily. Dx: Type 2 DM - Uncontrolled E11.65 Insulin: No blood sugar diagnostic (BLOOD GLUCOSE TEST) test strip Test blood sugar(s) 2 times daily. Dx: Type 2 DM - Uncontrolled E11.65 Insulin: No fluticasone (FLONASE) 50 mcg/actuation nasal spray INSTILL 2 SPRAYS IN EACH NOSTRIL ONCE DAILY metFORMIN ER (GLUCOPHAGE XR) 500 mg 24 hr tablet Take 2 tablets by mouth twice daily. nitroglycerin sublingual (NITROSTAT) 0.4 mg SL tablet Dissolve 1 tablet under the tongue every 5 minutes as needed for chest pain. atorvastatin (LIPITOR) 80 mg tablet Take 1 tablet by mouth once daily. Managed by cardiology, Dr. Kern clopidogrel (PLAVIX) 75 mg tablet Take 1 tablet by mouth once daily. Managed by [facility] omega-3 fatty acids 1,000 mg cap Take 2 capsules by mouth once daily. aspirin, enteric coated (ECOTRIN LOW STRENGTH) 81 mg EC tablet Take 1 tablet by mouth once daily. Blood Pressure Monitor kit 1 Each once daily. Blood Glucose Control High and Low (ACCU-CHEK MEGHANA CONTROL SOLN) soln Use as directed as indicated to check quality of test strips No current facility-administered medications on file prior to visit. Social History Tobacco Use Smoking status: Never Smokeless tobacco: Former Types: Chew Quit date: 07/02/2014 Tobacco comments: 1 can of chewing tobacco every 3 days PT QUIT 2014 Vaping Use Vaping Use: Never used Substance Use Topics Alcohol use: No Drug use: No ALLERGIES Allergen Reactions Florinef [Fludrocor* Angioedema Perfumes Other: See Comments sneezing Review of Systems: ENT: denies loss of hearing, + vertigo (chronic), + tinnitus Vision: denies blurring vison, double vision/diplopia Cardiopulmonary: denies + chest pain, palpitations Respiratory: denies + shortness of breath (with chest pain) GI: denies recent nausea, vomiting, diarrhea, constipation : denies incontinence Psych: denies depression, anxiety Sleep: denies issues with sleeping Heme: denies + easy bruising/bleeding Musculoskeletal: denies weakness, joint ache/pain Back/spine: denies + low back or + cervical pains Neuro: Denies + tremors, loss of feeling, + dizziness, seizure, + blackout, + paresthesia, facial paresthesia, facial weakness, difficulty in speech, slurring of words, dysarthria, dysphagia, memory loss, + headache Physical Exam: 11/21/22 0939 BP: 115/70 Pulse: 73 Resp: 18 Temp: 36.4 C (97.5 F) SpO2: 98% Weight: 79.9 kg (176 lb 3.2 oz) Orthostatic VS: Laying 135/73, HR 71 Sitting 126/72, HR 70 Standing 125/64, HR 77 and 122/73, HR 81 Patient is alert and in no distress. Dress is appropriate. Mood is appropriate. Breathing appears regular and unstressed Neurologic examination: Cognitively intact. No deficits. No formal MMSE performed. CN: Pupils equal and reactive to light, extraocular movements intact with no nystagmus, face is symmetric with no facial droop, facial sensation intact bilaterally to light touch. V1-3, hearing intact bilaterally, symmetric evaluation of the soft palate, tongue is midline with no deviation, shoulder shrug is symmetric. Motor exam shows 5/5 strength symmetric through the upper and lower extremities in all groups tested. Sensory intact to light touch in all extremities. Vibratory sensation is intact and symmetric all extremities. Proprioception intact. Deep tendon reflexes are symmetric at the biceps, brachioradialis, triceps, patella, and achilles bilaterally. Negative Chau's bilaterally. Coordination: No dysmetria on finger to nose. No tremors noted. No drift seen. Shuffling gait, decreased arm swing on L. Good body turn though pt mildly off balance. Retropulsion on pull test. АННА of pronation and supination, finger and hand tapping intact. Toe tapping intact. Mild rigidity to BUE, bradykinesia. No tremors. Rises from chair without using arms Labs/studies: Cardiac Cath 02/11/22: CT Brain Report CT BRAIN WO IVCON Exam End: 04/05/2022 2:00 PM (Final result) Narrative: * * *Final Report* * * DATE OF EXAM: Apr 05 2022 2:00PM [facility] 0504 - CT BRAIN WO IVCON / PROCEDURE REASON: Seizure, new-onset, no history of trauma * * * * Physician Interpretation * * * * EXAMINATION: CT BRAIN WO IVCON CLINICAL HISTORY: Seizure, new-onset, no history of trauma TECHNIQUE: Serial axial images without IV contrast were obtained from the vertex to the foramen magnum. MQ: [id number] CT Radiation dose: Integrated Dose-Length Product (DLP) for this visit = 715.81 mGy*cm CT Dose Reduction Employed: Iterative recon COMPARISON: 03/19/2022 RESULT: Post-operative change: None. Acute change: No evidence of an acute infarct or other acute parenchymal process. Hemorrhage: No evidence of acute intracranial hemorrhage. ECASS hemorrhagic transformation score: Not Applicable Mass Lesion / Mass Effect: There is no evidence of an intracranial mass or extraaxial fluid collection. No significant mass effect. Chronic change: None apparent. Parenchyma: There is no significant volume loss. The brain parenchyma is otherwise within normal limits for age. Ventricles: The ventricles are within normal limits of size and configuration for age. Paranasal sinuses and skull base: The visualized paranasal sinuses are grossly clear. The skull base and imaged soft tissues are unremarkable. Criminal Justice Social Worker (topogram) images: No acute findings Impression: IMPRESSION: No significant change. No acute intracranial process Dump Worker: PSCB Transcribe Date/Time: Apr 05 2022 2:06P Dictated by : CEDRIC MARCUS MD This examination was interpreted and the report reviewed and electronically signed by: CEDRIC MARCUS MD on Apr 05 2022 2:08PM EST Previously Reviewed: MRI Brain 07/21/21: 1. Normal brain. 2. No acute or focal disease. CT Brain 11/02/21: Normal soft tissue structures. Normal calvarium. Normal size ventricles and extra-axial spaces for the patient''s age. Normal white matter tracts of the cerebral hemispheres. There are small punctate calcifications of the basal ganglia which are seen in the aging brain as a normal variant. Normal brainstem. Normal cerebellum. There is no intracranial hemorrhage. There are no findings of an acute ischemic infarction. Atherosclerotic calcification of the cavernous portions of the internal carotid arteries bilaterally. Normal visualized paranasal sinuses. _ IMPRESSION: Normal unenhanced CT scan of the brain. CT Brain 10/16/21: Normal soft tissue structures. Normal calvarium. Normal size ventricles and extra-axial spaces for the patient''s age. Normal white matter tracts of the cerebral hemispheres. There are small punctate calcifications of the basal ganglia which are seen in the aging brain as a normal variant. Normal brainstem. Normal cerebellum. There is no intracranial hemorrhage. There are no findings of an acute ischemic infarction. Normal visualized paranasal sinuses. IMPRESSION: Normal unenhanced CT scan of the brain. CT Cervical Spine 10/16/21: FINDINGS: Normal craniovertebral junction. Normal anterior atlantoaxial articulation. Normal odontoid process. There is straightening of the normal cervical lordosis. Normal vertebral bodies and posterior osseous elements. C2-3: Normal endplates. Normal disc height and morphology. Normal central canal and intervertebral neuroforamina. C3-4: Normal endplates. Normal disc height and morphology. Normal central canal and intervertebral neuroforamina. C4-5: Normal endplates. Normal disc height and morphology. Normal central canal and intervertebral neuroforamina. C5-6: Normal endplates. Normal disc height and morphology. Normal central canal and intervertebral neuroforamina. C6-7: Normal endplates. Normal disc height and morphology. Normal central canal and intervertebral neuroforamina. C7-T1: Normal endplates. Normal disc height and morphology. Normal central canal and intervertebral neuroforamina. Normal visualized soft tissue structures. _ IMPRESSION: Normal unenhanced CT examination of the cervical spine. US Carotid Arteries 10/31/21: IMPRESSION Compared to prior study of 06/11/2017, no significant change. RIGHT SIDE Common carotid artery: Plaque visualized without evidence of hemodynamically significant stenosis. Internal carotid artery: 40-59% stenosis. Vertebral artery: Patent and antegrade flow noted. LEFT SIDE Common carotid artery: Plaque visualized without evidence of hemodynamically significant stenosis. Internal carotid artery: 60-79% stenosis. Vertebral artery: Patent and antegrade flow noted. Assessment/Plan: R55 Syncope, unspecified syncope type (primary encounter diagnosis) I95.1 Orthostatic hypotension Comment: Patient previously seen in general neurology clinic in January of 2022 for multiple syncopal episodes since 10/2021. Episodes can be preceded by a lightheaded feeling, tinnitus, or numbness to both legs and can last for up to 30 minutes. Previous extensive workup completed and unremarkable including MRI and CT brain as well as cardiac workup including cardiac cath, echo, Loop Recorder. Episodes likely attributed to orthostatic blood pressure (has been seen within autonomic clinic) and he has started and failed (or was unable to continue) trial of multiple medications including Florinef, midodrine, amantadine, and Sudafed. At time of previous appointment gabapentin dose was decreased to 600mg BID to determine if there was a correlating improvement in symptoms. He denies any worsening of pain, however feels the decrease in medication had little affect on BP. He would like to further decrease the dose and possibly discontinue at this time. Tapering schedule provided on AVS. Discussed that if at any point in time he should note worsening of pain, he will stop the taper and continue at current dose of gabapentin. In addition, he was started on pyridostigmine 60mg QHS with goal of 60mg BID. Today he reports he is currently only taking evening dose. Orthostatic VS obtained in office and WNL, however, he reports occasional dizziness still occurring and presents with log of low BP readings at home. Will increase dose to BID. Pt will monitor for SE as well as continue to keep log of BP readings. He will notify the office if SE or BP concerns occur. Follow up in three months or sooner as needed for medication and symptom review. Jenna Jim APRN.MIGEL I spent a total of 30 minutes on the date of the service which included preparing to see the patient, [id number] patient care, completing clinical documentation, obtaining and/or reviewing separately obtained history, performing a medically appropriate examination, counseling and educating the patient/family/caregiver, and ordering medications, tests, or procedures. documented in this encounter [facility] 11-14-[address] place consult for [facility].. In provider review of patient appointment, patient needs to be re-scheduled with the [place] [facility]. Pt has been seen by three general neurologists and due to the overall concerns, provider believes [facility] will be more beneficial to patient. TC to patient who is advised of the above and is agreeable to see brain [facility]. Please contact patient and assist with scheduling with [facility]. Thank you. CALLIE Rodriguez documented in this encounter [facility] 11-12-2022 Note HNO ID: [id number] Author: Fer Merrill APRN.[employer]BE[employer] REMOVAL SUPERVISOR Service: ? Author Type: Nurse Practitioner Type: Progress Notes Filed: 11/12/2022 11:46 AM Note Text: Subjective HPI HPI Michael Bates is a 67 year old male who presents today for CC of itchy rash. This started 1 month ago. Has tried otc medication without relief. Symptoms are worsened by nothing. Risk factors was into a tree that was covered in PI. .Patient presents with: Rash: Pt reported red painful rash x1 mth, bilateral thigh, lower back, arms. PAST MEDICAL HISTORY Diagnosis Date Acute right-sided low back pain with right-sided sciatica 07/09/2016 Adhesive capsulitis of shoulder 12/04/2007 Adjustment disorder with depressed mood 10/16/2006 Anemia of chronic disease 02/14/2021 Benign non-nodular prostatic hyperplasia without lower urinary tract symptoms 10/03/2016 Bilateral chronic knee pain 10/10/2016 Bilateral occipital neuralgia 08/04/2015 Carotid stenosis, asymptomatic, bilateral 08/09/2015 US 08/2015: bilateral 20-40%, US 06/2017 Rt; 40-60% and Lt 60-80% monitored by cardio Cervical spondylosis 01/20/2012 Cervicalgia 10/16/2006 Cervicogenic headache 10/16/2015 Chronic post-traumatic headache 08/04/[address] Duque Chronic sinusitis Claudication (HCC) 06/04/2017 PVR's normal. Coronary atherosclerosis due to lipid rich plaque 01/20/[address] Kern. s/p RODDY to Ramus and RODDY to LAD placed 01/20/2017. COVID-19 virus infection 06/18/202106/2021 DDD (degenerative disc disease), cervical 01/20/2012 DDD (degenerative disc disease), lumbar 06/30/2016 Multi level, worse L2-L3 Diabetes (HCC) Diabetic eye exam ([facility]) 03/19/2017 Last done: 10/01/2018 Elevated LFTs 08/05/2015 Essential hypertension, benign GERD without esophagitis 06/12/2018 History of COVID-19 06/18/202106/2021 Illiteracy 10/09/2020 Leg pain, bilateral 06/04/2017 Lumbago 02/09/2010 * Dealing with on his own as of 08/2011 -- had a bad experience with a spine surgeon, nearly did surgery based on the wrong x-rays * Dates back to an injury while lifting 55 lbs Lumbar radiculopathy Migraine variant 07/22/2006 Since head injury around 1995 Mixed hyperlipidemia 08/04/2015 Neck pain, chronic 10/16/2015 Neuropathy 06/12/2018 Primary insomnia 03/02/2019 Radicular pain of right lower extremity 07/09/2016 S/P drug eluting coronary stent placement 01/20/201712/2016: 2 stents: Ramus of Circ and LAD S/P drug eluting coronary stent placement 01/20/201712/2016: 2 stents: Ramus of Circ and LAD, 05/10/20 RODDY to pLCx Sciatica 02/09/2010 Seborrheic dermatitis 08/04/2015 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, s/p repair Unspecified pruritic disorder 03/02/2009 PAST SURGICAL HISTORY Procedure Laterality Date 2D ECHO (EXEP) 01/16/2017 EF=60%, 1+ AK and TI CATARACT EXTRACTION HX Left 10/2019 CC CORONARY STENT 05/10/2020 RODDY to pLCx CC CORONARY STENT 12/2016 Ramus of Circ and LAD CC CORONARY STENT 11/20/2020 RODDY to pLCx and PTCA to OM2 CC CORONARY STENT 07/23/2021 PCI to prox Lt Circ in-stent restenosis then placement of RODDY COLONOSCOPY SCREENING 10/14/2022 COLONOSCOPY SCREENING 10/14/2022 repeat in 10 yrs EGD 10/14/2022 long seg Santos's without dysplasia, repeat in 2 years EGD W/O BRSH SPEC VARICIES INJ 10/14/2022 FECAL OCCULT BLOOD TEST 04/19/2019 Negative PAST SURGICAL HISTORY OF 1971 appendix PAST SURGICAL HISTORY OF right foot -- tendon surgery PAST SURGICAL HISTORY OF 1999 +/- Right hand -- trauma, aneurysm repair/CTS release -- Dr. Llanes PAST SURGICAL HISTORY OF 2008 torn cartilage -- arthroscopy, left knee PAST SURGICAL HISTORY OF 2017 right hand ulnar artery aneurism repair. STRESS TEST 07/01/2018 negative STRESS TEST NUCLEAR 07/2019 negative ALLERGIES Florinef [Fludrocortisone] and Perfumes MEDICATIONS ferrous sulfate 325 mg (65 mg iron) tablet Take 1 tablet by mouth twice daily with meals. sertraline (ZOLOFT) 50 mg tablet 1 tablet by mouth once a day. predniSONE (DELTASONE) 20 mg tablet One tab PO daily per cardio. pantoprazole DR (PROTONIX) 40 mg tablet Take 1 tablet by mouth daily before breakfast. Take on empty stomach, 1/2 hr before meal. pioglitazone (ACTOS) 30 mg tablet Take 1 tablet by mouth once daily. Blood-Glucose Meter monitoring kit Glucose Meter of Choice - Kit - Dx: Type 2 DM - Uncontrolled E11.65 Lancets lancets Test blood sugar(s) 2 times daily. Dx: Type 2 DM - Uncontrolled E11.65 Insulin: No fluticasone (FLONASE) 50 mcg/actuation nasal spray INSTILL 2 SPRAYS IN EACH NOSTRIL ONCE DAILY metFORMIN ER (GLUCOPHAGE XR) 500 mg 24 hr tablet Take 2 tablets by mouth twice daily. nitroglycerin sublingual (NITROSTAT) 0.4 mg SL tablet Dissolve 1 tablet under the tongue every 5 minutes as needed for chest pain. atorvastatin (LIPITOR) 80 mg tablet Take 1 tablet by mouth once daily. M (more content not included)... [facility] 11-12-2022 History of Present illness Narrative Subjective HPI HPI Michael Bates is a 67 year old male who presents today for CC of itchy rash. This started 1 month ago. Has tried otc medication without relief. Symptoms are worsened by nothing. Risk factors was into a tree that was covered in PI. .Patient presents with: Rash: Pt reported red painful rash x1 mth, bilateral thigh, lower back, arms. PAST MEDICAL HISTORY Diagnosis Date Acute right-sided low back pain with right-sided sciatica 07/09/2016 Adhesive capsulitis of shoulder 12/04/2007 Adjustment disorder with depressed mood 10/16/2006 Anemia of chronic disease 02/14/2021 Benign non-nodular prostatic hyperplasia without lower urinary tract symptoms 10/03/2016 Bilateral chronic knee pain 10/10/2016 Bilateral occipital neuralgia 08/04/2015 Carotid stenosis, asymptomatic, bilateral 08/09/2015 US 08/2015: bilateral 20-40%, US 06/2017 Rt; 40-60% and Lt 60-80% monitored by cardio Cervical spondylosis 01/20/2012 Cervicalgia 10/16/2006 Cervicogenic headache 10/16/2015 Chronic post-traumatic headache 08/04/[address] Duque Chronic sinusitis Claudication (HCC) 06/04/2017 PVR's normal. Coronary atherosclerosis due to lipid rich plaque 01/20/[address] Kern. s/p RODDY to Ramus and RODDY to LAD placed 01/20/2017. COVID-19 virus infection 06/18/202106/2021 DDD (degenerative disc disease), cervical 01/20/2012 DDD (degenerative disc disease), lumbar 06/30/2016 Multi level, worse L2-L3 Diabetes (HCC) Diabetic eye exam (HCC) 03/19/2017 Last done: 10/01/2018 Elevated LFTs 08/05/2015 Essential hypertension, benign GERD without esophagitis 06/12/2018 History of COVID-19 06/18/202106/2021 Illiteracy 10/09/2020 Leg pain, bilateral 06/04/2017 Lumbago 02/09/2010 * Dealing with on his own as of 08/2011 -- had a bad experience with a spine surgeon, nearly did surgery based on the wrong x-rays * Dates back to an injury while lifting 55 lbs Lumbar radiculopathy Migraine variant 07/22/2006 Since head injury around 1995 Mixed hyperlipidemia 08/04/2015 Neck pain, chronic 10/16/2015 Neuropathy 06/12/2018 Primary insomnia 03/02/2019 Radicular pain of right lower extremity 07/09/2016 S/P drug eluting coronary stent placement 01/20/201712/2016: 2 stents: Ramus of Circ and LAD S/P drug eluting coronary stent placement 01/20/201712/2016: 2 stents: Ramus of Circ and LAD, 05/10/20 RODDY to pLCx Sciatica 02/09/2010 Seborrheic dermatitis 08/04/2015 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, s/p repair Unspecified pruritic disorder 03/02/2009 PAST SURGICAL HISTORY Procedure Laterality Date 2D ECHO (EXEP) 01/16/2017 EF=60%, 1+ AK and TI CATARACT EXTRACTION HX Left 10/2019 CC CORONARY STENT 05/10/2020 RODDY to pLCx CC CORONARY STENT 12/2016 Ramus of Circ and LAD CC CORONARY STENT 11/20/2020 RODDY to pLCx and PTCA to OM2 CC CORONARY STENT 07/23/2021 PCI to prox Lt Circ in-stent restenosis then placement of RODDY COLONOSCOPY SCREENING 10/14/2022 COLONOSCOPY SCREENING 10/14/2022 repeat in 10 yrs EGD 10/14/2022 long seg Santos's without dysplasia, repeat in 2 years EGD W/O [facility] SPEC VARICIES INJ 10/14/2022 FECAL OCCULT BLOOD TEST 04/19/2019 Negative PAST SURGICAL HISTORY OF 1971 appendix PAST SURGICAL HISTORY OF right foot -- tendon surgery PAST SURGICAL HISTORY OF 1999 +/- Right hand -- trauma, aneurysm repair/CTS release -- Dr. Llanes PAST SURGICAL HISTORY OF 2008 torn cartilage -- arthroscopy, left knee PAST SURGICAL HISTORY OF 2017 right hand ulnar artery aneurism repair. STRESS TEST 07/01/2018 negative STRESS TEST NUCLEAR 07/2019 negative ALLERGIES Florinef [Fludrocortisone] and Perfumes MEDICATIONS ferrous sulfate 325 mg (65 mg iron) tablet Take 1 tablet by mouth twice daily with meals. sertraline (ZOLOFT) 50 mg tablet 1 tablet by mouth once a day. predniSONE (DELTASONE) 20 mg tablet One tab PO daily per cardio. pantoprazole DR (PROTONIX) 40 mg tablet Take 1 tablet by mouth daily before breakfast. Take on empty stomach, 1/2 hr before meal. pioglitazone (ACTOS) 30 mg tablet Take 1 tablet by mouth once daily. Blood-Glucose Meter monitoring kit Glucose Meter of Choice - Kit - Dx: Type 2 DM - Uncontrolled E11.65 Lancets lancets Test blood sugar(s) 2 times daily. Dx: Type 2 DM - Uncontrolled E11.65 Insulin: No fluticasone (FLONASE) 50 mcg/actuation nasal spray INSTILL 2 SPRAYS IN EACH NOSTRIL ONCE DAILY metFORMIN ER (GLUCOPHAGE XR) 500 mg 24 hr tablet Take 2 tablets by mouth twice daily. nitroglycerin sublingual (NITROSTAT) 0.4 mg SL tablet Dissolve 1 tablet under the tongue every 5 minutes as needed for chest pain. atorvastatin (LIPITOR) 80 mg tablet Take 1 tablet by mouth once daily. Managed by cardiology, Dr. Kern clopidogrel (PLAVIX) 75 mg tablet Take 1 tablet by mouth once daily. Managed by [facility] omega-3 fatty acids 1,000 mg cap Take 2 capsules by mouth once daily. aspirin, enteric coated (ECOTRIN LOW STRENGTH) 81 mg EC tablet Take 1 tablet by mouth once daily. Blood Pressure Monitor kit 1 Each once daily. Blood Glucose Control High and Low (ACCU-CHEK MEGHANA CONTROL SOLN) soln Use as directed as indicated to check quality of test strips triamcinolone acetonide (KENALOG) 0.1 % cream Apply 1 application to affected area three times daily for 10 days. Apply sparingly to area for rash/itching. methylPREDNISolone (MEDROL, WILLIS,) 4 mg Dose-Pack Follow dosing instructions, take with food. blood sugar diagnostic (BLOOD GLUCOSE TEST) test strip Test blood sugar(s) 2 times daily. Dx: Type 2 DM - Uncontrolled E11.65 Insulin: No FAMILY HISTORY Problem Relation Age of Onset Lung Cancer Mother lung Coronary Artery Disease Sister former smoker Stroke Sister other (neurofibromatosis) Son from mother Social History Tobacco Use Smoking status: Never Smokeless tobacco: Former Types: Chew Quit date: 07/02/2014 Tobacco comments: 1 can of chewing tobacco every 3 days PT QUIT 2014 Vaping Use Vaping Use: Never used Substance Use Topics Alcohol use: No Drug use: No Review of Systems Constitutional: Negative for chills and fever. Skin: Positive for itching and rash. Objective Blood pressure 142/78, pulse 86, temperature 36.3 C (97.3 F), temperature source Tympanic, resp. rate 18, weight 80.8 kg (178 lb 3.2 oz), SpO2 97 %. Physical Exam Constitutional: General: He is not in acute distress. Appearance: He is not toxic-appearing or diaphoretic. HENT: Head: Normocephalic and atraumatic. Skin: General: Skin is warm and dry. Findings: Rash present. Comments: Blanchable erythema. No exudates or streaking. Neurological: Mental Status: He is alert and oriented to person, place, and time. ASSESSMENT/PLAN: 1. Rhus dermatitis - ICD9: 692.6, ICD10: L25.5 - Oral Steriod tx -Medrol dose pack - Topical steriod tx with Rx for steriod cream/ointment- see orders - discussed skin care of rash - follow up if symptoms persist or worsen 1 week with pcp. - TRIAMCINOLONE ACETONIDE 0.1 % TOPICAL CREAM - METHYLPREDNISOLONE 4 MG TABLETS IN A DOSE PACK Fer Merrill APRN.ASBESTOS REMOVAL SUPERVISOR documented in this encounter [facility] 11-05-2022 Miscellaneous Notes Last Office Visit: 10/24/2022 Future Office Visit: 11/19/2022 Requested Prescriptions Pending Prescriptions Disp Refills ferrous sulfate 325 mg (65 mg iron) tablet 60 tablet 1 Sig: Take 1 tablet by mouth twice daily with meals. Date of Last Labs: 08/21/2022 documented in this encounter [facility] 10-29-2022 Note HNO ID: [id number] Author: Jennifer Cho PA-C Service: ? Author Type: Physician Corporate Statistical Financial Analyst Type: Progress Notes Filed: 11/05/2022 2:55 PM Note Text: FOLLOW UP VISIT - ENDOSCOPY NAME: Michael Bates [facility] NO[facility] [id number] DATE OF SERVICE: 10/29/2022 : 1955 REFERRING PHYSICIAN: Nadir Grady MD Michael is a patient I am following with Dr. Santiago for anemia, weight loss, acid reflux. Dr. Santiago performed upper and lower endoscopy on 10/14/22. The patient was found to have diverticulosis with otherwise normal colonoscopy. EGD showed a small hiatal hernia, gastritis, and esophageal mucosal changes concerning for long-segment Santos's esophagus. Pathology demonstrated: FINAL DIAGNOSIS A. Antrum, biopsy: - Focal active gastritis and reactive change in antral mucosa. - Negative for intestinal metaplasia or dysplasia. - Immunostain for H. pylori will be reported as an addendum.. B. Esophagus, lower, biopsy: - Gastric cardia and fundic-type mucosa with mild chronic inflammation and reactive change. - Negative for intestinal metaplasia or dysplasia. - No squamous epithelium identified. C. Esophagus, MID, biopsy: - Specialized columnar mucosa with intestinal metaplasia consistent with Santos's esophagus. Negative for dysplasia. - No squamous epithelium identified. D. Esophagus, proximal, biopsy: - Specialized columnar mucosa with intestinal metaplasia consistent with Santos's esophagus. Negative for dysplasia. - Overlying squamous epithelium with reactive change. Gross Description A. ANTRUM (STOMACH) BIOPSY Received in formalin is one piece of cody, soft tissue measuring 0.4 x 0.3 x 0.2 cm. Totally submitted in one cassette. B. ESOPHAGUS LOWER BIOPSY Received in formalin are multiple pieces of cody, soft tissue aggregating to 1.3 x 0.2 x 0.2 cm. Totally submitted in one cassette. C. ESOPHAGUS MID BIOPSY Received in formalin is one piece of cody, soft tissue measuring 0.2 x 0.2 x 0.2 cm. Totally submitted in one cassette. D. ESOPHAGUS PROXIMAL BIOPSY Received in formalin are multiple pieces of cody, soft tissue aggregating to 0.9 x 0.2 x 0.2 cm. Totally submitted in one cassette. Gross examination performed at [facility], [facility] [address] J 10/14/2022 8:25 PM Performing Lab Diagnostic interpretation performed at [facility], [facility] [address] CLIA# [id number] Pipe Smoker Machine Operator: Olayinka Paz M.D. Addendum Addendum is issued to reflect the result of immunohistochemical stain: - Immunostain for H. pylori is negative in part A. The patient notes no complaints since the procedure. VITALS: Blood pressure 124/64, pulse 82, temperature 36.6 ?C (97.9 ?F), height 177.8 cm (5' 10 ), weight 81.2 kg (179 lb), SpO2 96 %. General: patient is alert, cooperative, pleasant and in no acute distress On examination, the abdomen is benign. Assessment IMPRESSION: long-segment Santos's without dysplasia, hiatal hernia, diverticulosis PLAN: The operative findings and pathology report were reviewed with the patient, and the patient has had the opportunity to ask questions and have questions answered. If the patient notes any problems or changes in bowel function, the patient should contact me immediately. Otherwise I recommend follow up EGD in 2 years for surveillance of Santos's, and colonoscopy in 10 years. HM updated and recall letter generated. Patient verbalized understanding of all above and agreed with the plan Diagnoses: (K22.70) Long-segment Santos's esophagus (primary encounter diagnosis) (K44.9) Hiatal hernia (K57.90) Diverticulosis (K29.60) Other gastritis without bleeding I spent a total of 24 minutes on the date of the service which included preparing to see the patient, [id number] patient care, completing clinical documentation, obtaining and/or reviewing separately obtained history, counseling and educating the patient/family/caregiver, independently interpreting results (not separately reported), and communicating results to the patient/family/caregiver. Jennifer Cho PA-C [facility] 10-29-2022 Instructions Jennifer Cho PA-C - 10/29/2022 4:38 PM EST -Continue PPI long-term -Repeat EGD in 2 years for surveillance The following instructions are important for you related to your office visit today with the [facility] General Surgeons. INSTRUCTIONS FOLLOWING A NORMAL COLONOSCOPY 10YR I discussed with you the findings of your colonoscopy. Since there were no worrisome abnormalities, I recommend you undergo repeat endoscopic screening every 10 years. This is the current recommendation for colon cancer screening. If you note bleeding, change in bowel habits, or other suspicious colon related symptoms before that time, those symptoms should be evaluated as necessary. INSTRUCTIONS FOR DIVERTICULA I recommend that you continue on a high-fiber diet. Avoidance of seeds is not necessary in general. Recent studies have demonstrated that seeds do not increase you risk of developing diverticulitis. If specific foods tend to cause discomfort, those should be avoided. Signs of diverticulitis (inflammation of diverticulosis) include - abdominal distention, fever, abdominal pain typically in the left lower quadrant, and changes of bowel habits. If these symptoms appear, you are instructed to contact our office immediately. If you note any additional difficulties or concerns, you should contact our office immediately. INSTRUCTIONS FOR BARRETTS ESOPHAGITIS I discussed with you the findings of your upper endoscopy. Your upper endoscopy demonstrated Santos's esophagitis Esophagitis may be a form of peptic irritation, with acid moving from the stomach to the esophagus (gastroesophageal reflux). Santos's changes are microscopic findings that have the lining of the esophagus look like the stomach lining. This finding of gastric metaplasia has been shown to be associated with an increased risk of developing esophageal cancer in the future. This is particularly worrisome if atypical cells (dysplasia) are found at biopsy. Esophagitis is related to many factors - acid production, obesity, foods, smoking and alcohol. Factors that increase acid production include smoking and stress. If you smoke, stopping smoking will often cure these issues without needing other medications. Prescription strength proton pump inhibitors (PPIs) are necessary for treatment of Santos's esophagitis. Treatment with PPI are usually continued indefinitely, even if your symptoms improve or if you never had GERD symptoms. Avoiding smoking, alcohol and antiinflammatory medications are important in the successful treatment of reflux esophagitis and peptic diseases. Other factors that contribute to GERD and esophagitis are being overweight, eating large meals before laying down and certain foods. Weight loss will help improve many GERD complaints. Remaining upright after eating large meals and having a small supper will also help symptoms. Avoiding food that contribute to reflux - chocolate, caffeine, cheddar cheese may also help. Follow up upper endoscopy should be performed regularly to assure healing of the esophagus and to make sure that worsening Santos's esophagitis is treated appropriately. New or worsening symptoms such are epigastric pain, burning, difficulty swallowing or food sticking should be relayed to your physician. Feeling full early after eating, or black, tarry, foul smelling stools are also worrisome. If you have any difficulties or concerns, you should contact our office immediately. If you note any additional difficulties, questions, or concerns, you should contact our office immediately @ [phone] and ask to be transferred to the General Surgery department. documented in this encounter [facility] 10-29-2022 History of Present illness Narrative FOLLOW UP VISIT - ENDOSCOPY [facility] NO[facility] [id number] DATE OF SERVICE: 10/29/2022 : 1955 REFERRING PHYSICIAN: Nadir Grady MD Michael is a patient I am following with Dr. Santiago for anemia, weight loss, acid reflux. Dr. Santiago performed upper and lower endoscopy on 10/14/22. The patient was found to have diverticulosis with otherwise normal colonoscopy. EGD showed a small hiatal hernia, gastritis, and esophageal mucosal changes concerning for long-segment Santos's esophagus. Pathology demonstrated: FINAL DIAGNOSIS A. Antrum, biopsy: - Focal active gastritis and reactive change in antral mucosa. - Negative for intestinal metaplasia or dysplasia. - Immunostain for H. pylori will be reported as an addendum.. B. Esophagus, lower, biopsy: - Gastric cardia and fundic-type mucosa with mild chronic inflammation and reactive change. - Negative for intestinal metaplasia or dysplasia. - No squamous epithelium identified. C. Esophagus, MID, biopsy: - Specialized columnar mucosa with intestinal metaplasia consistent with Santos's esophagus. Negative for dysplasia. - No squamous epithelium identified. D. Esophagus, proximal, biopsy: - Specialized columnar mucosa with intestinal metaplasia consistent with Santos's esophagus. Negative for dysplasia. - Overlying squamous epithelium with reactive change. Gross Description A. ANTRUM (STOMACH) BIOPSY Received in formalin is one piece of cody, soft tissue measuring 0.4 x 0.3 x 0.2 cm. Totally submitted in one cassette. B. ESOPHAGUS LOWER BIOPSY Received in formalin are multiple pieces of cody, soft tissue aggregating to 1.3 x 0.2 x 0.2 cm. Totally submitted in one cassette. C. ESOPHAGUS MID BIOPSY Received in formalin is one piece of cody, soft tissue measuring 0.2 x 0.2 x 0.2 cm. Totally submitted in one cassette. D. ESOPHAGUS PROXIMAL BIOPSY Received in formalin are multiple pieces of cody, soft tissue aggregating to 0.9 x 0.2 x 0.2 cm. Totally submitted in one cassette. Gross examination performed at [facility], [address] [place] [id number] JT 10/14/2022 8:25 PM Performing Lab Diagnostic interpretation performed at [facility], [address] [facility] [address] CLIA# [id number] Pipe Smoker Machine Operator: Olayinka Paz M.D. Addendum Addendum is issued to reflect the result of immunohistochemical stain: - Immunostain for H. pylori is negative in part A. The patient notes no complaints since the procedure. VITALS: Blood pressure 124/64, pulse 82, temperature 36.6 C (97.9 F), height 177.8 cm (5' 10 ), weight 81.2 kg (179 lb), SpO2 96 %. General: patient is alert, cooperative, pleasant and in no acute distress On examination, the abdomen is benign. Assessment IMPRESSION: long-segment Santos's without dysplasia, hiatal hernia, diverticulosis PLAN: The operative findings and pathology report were reviewed with the patient, and the patient has had the opportunity to ask questions and have questions answered. If the patient notes any problems or changes in bowel function, the patient should contact me immediately. Otherwise I recommend follow up EGD in 2 years for surveillance of Santos's, and colonoscopy in 10 years. HM updated and recall letter generated. Patient verbalized understanding of all above and agreed with the plan Diagnoses: (K22.70) Long-segment Santos's esophagus (primary encounter diagnosis) (K44.9) Hiatal hernia (K57.90) Diverticulosis (K29.60) Other gastritis without bleeding I spent a total of 24 minutes on the date of the service which included preparing to see the patient, [id number] patient care, completing clinical documentation, obtaining and/or reviewing separately obtained history, counseling and educating the patient/family/caregiver, independently interpreting results (not separately reported), and communicating results to the patient/family/caregiver. Jennifer Cho PA-C documented in this encounter [facility] 10-23-2022 Note HNO ID: [id number] Author: Alayna Urrutia MA Service: ? Author Type: Value Advisor Type: Progress Notes Filed: 10/24/2022 8:47 AM Note Text: Scan on 10/23/2022 10:26 AM by External Provider: Consultation - Cardiology Please review. Alayna Urrutia MA [facility] 10-23-2022 History of Present illness Narrative Scan on 10/23/2022 10:26 AM by External Provider: Consultation - Cardiology Please review. Alayna Urrutia MA documented in this encounter [facility] 10-14-2022 History and physical note Images from the original note were not included. HISTORY AND PHYSICAL Michael Bates 1955 REFERRING PHYSICIAN: Martha [place] PA-C CHIEF COMPLAINT: Consult (Colonoscopy, anemia, no prior colonoscopy) HPI: The patient is a 67 year old male referred for endoscopy. Michael notes no current colon complaints The patient notes reflux. He denies black tarry stools, hemorrhoids, rectal bleeding, constipation or diarrhea. He denies loss of stool control. He has note that he is losing weight. He states he feels weaker. He lost 20 pounds in 2 months. Laboratory studies were obtained which demonstrated a hemoglobin of 9.8 down from 11.92 months previously. Iron levels were low. The patient is being seen by me today at the request of Martha [place] PA-C my opinion and advice regarding anemia and weight loss. PAST MEDICAL HISTORY PAST MEDICAL HISTORY Diagnosis Date Acute right-sided low back pain with right-sided sciatica 07/09/2016 Adhesive capsulitis of shoulder 12/04/2007 Adjustment disorder with depressed mood 10/16/2006 Anemia of chronic disease 02/14/2021 Benign non-nodular prostatic hyperplasia without lower urinary tract symptoms 10/03/2016 Bilateral chronic knee pain 10/10/2016 Bilateral occipital neuralgia 08/04/2015 Carotid stenosis, asymptomatic, bilateral 08/09/2015 US 08/2015: bilateral 20-40%, US 06/2017 Rt; 40-60% and Lt 60-80% monitored by cardio Cervical spondylosis 01/20/2012 Cervicalgia 10/16/2006 Cervicogenic headache 10/16/2015 Chronic post-traumatic headache 08/04/[address] Duque Chronic sinusitis Claudication (HCC) 06/04/2017 PVR's normal. Coronary atherosclerosis due to lipid rich plaque 01/20/[address] Kern. s/p RODDY to Ramus and RODDY to LAD placed 01/20/2017. COVID-19 virus infection 06/18/202106/2021 DDD (degenerative disc disease), cervical 01/20/2012 DDD (degenerative disc disease), lumbar 06/30/2016 Multi level, worse L2-L3 Diabetes ([facility]) Diabetic eye exam ([facility]) 03/19/2017 Last done: 10/01/2018 Elevated LFTs 08/05/2015 Essential hypertension, benign GERD without esophagitis 06/12/2018 History of COVID-19 06/18/202106/2021 Illiteracy 10/09/2020 Leg pain, bilateral 06/04/2017 Lumbago 02/09/2010 * Dealing with on his own as of 08/2011 -- had a bad experience with a spine surgeon, nearly did surgery based on the wrong x-rays * Dates back to an injury while lifting 55 lbs Lumbar radiculopathy Migraine variant 07/22/2006 Since head injury around 1995 Mixed hyperlipidemia 08/04/2015 Neck pain, chronic 10/16/2015 Neuropathy 06/12/2018 Primary insomnia 03/02/2019 Radicular pain of right lower extremity 07/09/2016 S/P drug eluting coronary stent placement 01/20/201712/2016: 2 stents: Ramus of Circ and LAD S/P drug eluting coronary stent placement 01/20/201712/2016: 2 stents: Ramus of Circ and LAD, 05/10/20 RODDY to pLCx Sciatica 02/09/2010 Seborrheic dermatitis 08/04/2015 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, s/p repair Unspecified pruritic disorder 03/02/2009 PAST SURGICAL HISTORY PAST SURGICAL HISTORY Procedure Laterality Date 2D ECHO (EXEP) 01/16/2017 EF=60%, 1+ AK and TI CATARACT EXTRACTION HX Left 10/2019 CC CORONARY STENT 05/10/2020 RODDY to pLCx CC CORONARY STENT 12/2016 Ramus of Circ and LAD CC CORONARY STENT 11/20/2020 RODDY to pLCx and PTCA to OM2 CC CORONARY STENT 07/23/2021 PCI to prox Lt Circ in-stent restenosis then placement of RODDY FECAL OCCULT BLOOD TEST 04/19/2019 Negative PAST SURGICAL HISTORY OF 1971 appendix PAST SURGICAL HISTORY OF right foot -- tendon surgery PAST SURGICAL HISTORY OF 1999 +/- Right hand -- trauma, aneurysm repair/CTS release -- Dr. Llanes PAST SURGICAL HISTORY OF 2008 torn cartilage -- arthroscopy, left knee PAST SURGICAL HISTORY OF 2017 right hand ulnar artery aneurism repair. STRESS TEST 07/01/2018 negative STRESS TEST NUCLEAR 07/2019 negative CURRENT MEDICATIONS Current Outpatient Medications Medication Sig ferrous sulfate 325 mg (65 mg iron) tablet Take 1 tablet by mouth twice daily with meals. glimepiride (AMARYL) 2 mg tablet Take 1 tablet by mouth daily with breakfast. Blood-Glucose Meter monitoring kit Glucose Meter of Choice - Kit - Dx: Type 2 DM - Uncontrolled E11.65 Lancets lancets Test blood sugar(s) 2 times daily. Dx: Type 2 DM - Uncontrolled E11.65 Insulin: No blood sugar diagnostic (BLOOD GLUCOSE TEST) test strip Test blood sugar(s) 2 times daily. Dx: Type 2 DM - Uncontrolled E11.65 Insulin: No fluticasone (FLONASE) 50 mcg/actuation nasal spray INSTILL 2 SPRAYS IN EACH NOSTRIL ONCE DAILY pioglitazone (ACTOS) 30 mg tablet Take 1 tablet by mouth once daily. metFORMIN ER (GLUCOPHAGE XR) 500 mg 24 hr tablet Take 2 tablets by mouth twice daily. gabapentin (NEURONTIN) 800 mg tablet Take 1 tablet by mouth twice daily for 90 days. predniSONE (DELTASONE) 20 mg tablet One daily per cardio, Dr. kern ranolazine ER (RANEXA) 500 mg 12 hr tablet Take 1 tablet by mouth twice daily. Per cardio, Dr. Kern nitroglycerin sublingual (NITROSTAT) 0.4 mg SL tablet Dissolve 1 tablet under the tongue every 5 minutes as needed for chest pain. atorvastatin (LIPITOR) 80 mg tablet Take 1 tablet by mouth once daily. Managed by cardiology, Dr. Kern midodrine (PROAMATINE) 10 mg tablet Take 1 tablet by mouth three times daily. Per [facility] clopidogrel (PLAVIX) 75 mg tablet Take 1 tablet by mouth once daily. Managed by [facility] omega-3 fatty acids 1,000 mg cap Take 2 capsules by mouth once daily. aspirin, enteric coated (ECOTRIN LOW STRENGTH) 81 mg EC tablet Take 1 tablet by mouth once daily. Blood Pressure Monitor kit 1 Each once daily. Blood Glucose Control High and Low (ACCU-CHEK MEGHANA CONTROL SOLN) soln Use as directed as indicated to check quality of test strips sertraline (ZOLOFT) 50 mg tablet Take 1 tablet by mouth once daily. (Patient not taking: Reported on 06/27/2022) amantadine HCl (SYMMETREL) 100 mg capsule Take 1 capsule by mouth twice daily. (Patient not taking: Reported on 06/27/2022) No current facility-administered medications for this visit. ALLERGIES: Florinef [Fludrocortisone] and Perfumes PERSONAL HISTORY: SOCIAL HISTORY Social History Tobacco Use Smoking status: Never Smokeless tobacco: Former Types: Chew Quit date: 07/02/2014 Tobacco comments: 1 can of chewing tobacco every 3 days PT QUIT 2014 Vaping Use Vaping Use: Never used Substance Use Topics Alcohol use: No Drug use: No FAMILY HISTORY: FAMILY HISTORY FAMILY HISTORY Problem Relation Age of Onset Lung Cancer Mother lung Coronary Artery Disease Sister former smoker Stroke Sister other (neurofibromatosis) Son from mother REVIEW OF SYMPTOMS: The review of systems data was entered by the nurse and reviewed by nd Nursing Notes: Shiela Thacker LPN 06/27/2022 9:31 AM Signed REVIEW OF SYSTEMS: General: The patient notes fatigue, notes weight loss, denies weight gain, denies feeling hot, and notes feelings of cold. Eyes: The patient denies glaucoma, notes eye injury/surgery, does not wear glasses or contacts. Ear/Nose/Throat: The patient notes allergies, denies hayfever, denies ear infections, and denies bloody noses. Cardiovascular: The patient notes chest pain, notes heart disease, notes high blood pressure,notes cardiac stent, denies prior heart attack, denies irregular heart beat, notes high cholesterol, denies poor circulation, denies heart failure, other cardiac issues, notes claudication, denies cold feet, denies peripheral arterial stent. Respiratory: The patient denies tuberculosis, denies pneumonia, denies frequent cough, denies pulmonary embolism, denies shortness of breath, and denies coughing up blood. Gastrointestinal: The patient denies difficulty swallowing, notes acid reflux, denies ulcers, denies vomiting, denies jaundice/hepatitis, denies gallbladder problems, denies black or tarry stools, denies hemorrhoids, denies bleeding from rectum, denies diverticulitis, denies constipation, denies diarrhea, denies loss of stool control, and denies hernias. Kidney/Bladder: The patient denies kidney stones, denies urine infections, and denies bloody urine. Skin: The patient denies a history of skin cancer, denies bleeding/changing moles, and denies a history of skin rash. Neurologic: The patient denies a history of epilepsy/convulsions, notes headaches, denies head/spinal injuries, and denies stroke/TIA. Psychiatric: The patient denies psychiatric medications, denies depression, and denies voices, denies substance abuse. Endocrine: The patient denies thyroid disorders, notes diabetes, and denies hormonal problems. Hematologic: The patient notes a history of bruising, denies bleeding, and notes anemia, denies blood clots. Infections: The patient notes a history of measles and mumps, denies rheumatic fever, and denies sexually transmitted diseases. Musculoskeletal: The patient notes back pain/injury, denies back problems, denies sciatica, denies knee/foot trouble, notes arthritis, or denies gout. When was patient's last Mammogram screening? N/A Last Colonoscopy: none Shiela Thacker LPN PHYSICAL EXAMINATION: General: The patient is 67 year old male, well nourished, well hydrated in no acute distress. The patient is oriented to time, place, and person. VITALS: Blood pressure 110/62, pulse 80, temperature 36.3 C (97.4 F), height 177.8 cm (5' 10 ), weight 71.7 kg (158 lb), SpO2 97 %. Body mass index is 22.67 kg/m . HEENT: Normal cephalic, ataumatic, pupils are equally round, sclera are anicteric, mucous membranes are moist, oropharynx is clear. Neck has no masses, asymmetry or lymphadenopathy. Thyroid is unremarkable. Respiratory: Clear to auscultation and percussion. Normal respiratory excursion and pattern. Cardiac: Examination is regular rate and rhythm. Abdominal exam: Soft, nontender, with no palpable masses. No hepatosplenomegaly. No palpable hernias. Rectal exam: exam deferred Extremities: no clubbing, cyanosis or edema. No adenopathy. Other: LABORATORY VALUES: As Noted RADIOLOGIC STUDIES: As Noted Assessment IMPRESSION: Anemia and weight loss PLAN: I plan to perform upper and lower endoscopy. We discussed the risks and benefits of the planned endoscopy. I have informed the patient that complications can occur including failure to complete the endoscopy and perforation. The patient had the opportunity to ask questions concerning the planned endoscopy. My staff has also explained the procedure to the patient in understandable terms and has given the patient printed material concerning the procedure. The patient freely consents to surgery. I plan to use golytely bowel preparation for endoscopy I plan for monitored anesthetic care. Diagnoses: (D64.9) Anemia, unspecified type My findings have been communicated to [place] via shared medical record. This note will be forwarded to Nadir Grady MD. Return to Clinic: The patient is instructed to follow-up with me after the testing has been completed. Thai Santiago MD documented in this encounter [facility] 10-05-2022 Note HNO ID: [id number] Author: Nadir Grady MD Service: ? Author Type: Physician Type: Progress Notes Filed: 10/07/2022 5:13 PM Note Text: Chief Complaint Patient presents with: Follow Up: Low BS's and low BP HPI Michael Bates is a 67 year old male who presents here today for Above Complaints.. At last visit patient was instructed to stop his Amaryl which he did. He also stopped his Actos which I did not want him to do and this ws just restarted. With being on prednisone per cardio his FBS have ranged 130's-160. [place] hrs post meals have been in the 150's. No low BS's Patient did see Neuro who feels patient does not have Parkinson's of Myasthenia Gravis and meds were stopped. Since being off the Amantadine he has noticed much less dizziness. He also notes he now gets a warning prior and is able to sit down for a period of time. He took the pseudoephedrine but felt it made him dizzy and low blood pressure. I had informed him this medication would not cause these issues and was ment to treat them but he was not willing to restart it. Past medical history, appointments, medications, allergies reviewed. Previous Medical History PAST MEDICAL HISTORY Diagnosis Date Acute right-sided low back pain with right-sided sciatica 07/09/2016 Adhesive capsulitis of shoulder 12/04/2007 Adjustment disorder with depressed mood 10/16/2006 Anemia of chronic disease 02/14/2021 Benign non-nodular prostatic hyperplasia without lower urinary tract symptoms 10/03/2016 Bilateral chronic knee pain 10/10/2016 Bilateral occipital neuralgia 08/04/2015 Carotid stenosis, asymptomatic, bilateral 08/09/2015 US 08/2015: bilateral 20-40%, US 06/2017 Rt; 40-60% and Lt 60-80% monitored by cardio Cervical spondylosis 01/20/2012 Cervicalgia 10/16/2006 Cervicogenic headache 10/16/2015 Chronic post-traumatic headache 08/04/[address] Duque Chronic sinusitis Claudication (HCC) 06/04/2017 PVR's normal. Coronary atherosclerosis due to lipid rich plaque 01/20/[address] Kern. s/p RODDY to Ramus and RODDY to LAD placed 01/20/2017. COVID-19 virus infection 06/18/202106/2021 DDD (degenerative disc disease), cervical 01/20/2012 DDD (degenerative disc disease), lumbar 06/30/2016 Multi level, worse L2-L3 Diabetes (HCC) Diabetic eye exam (HCC) 03/19/2017 Last done: 10/01/2018 Elevated LFTs 08/05/2015 Essential hypertension, benign GERD without esophagitis 06/12/2018 History of COVID-19 06/18/202106/2021 Illiteracy 10/09/2020 Leg pain, bilateral 06/04/2017 Lumbago 02/09/2010 * Dealing with on his own as of 08/2011 -- had a bad experience with a spine surgeon, nearly did surgery based on the wrong x-rays * Dates back to an injury while lifting 55 lbs Lumbar radiculopathy Migraine variant 07/22/2006 Since head injury around 1995 Mixed hyperlipidemia 08/04/2015 Neck pain, chronic 10/16/2015 Neuropathy 06/12/2018 Primary insomnia 03/02/2019 Radicular pain of right lower extremity 07/09/2016 S/P drug eluting coronary stent placement 01/20/201712/2016: 2 stents: Ramus of Circ and LAD S/P drug eluting coronary stent placement 01/20/201712/2016: 2 stents: Ramus of Circ and LAD, 05/10/20 RODDY to pLCx Sciatica 02/09/2010 Seborrheic dermatitis 08/04/2015 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, s/p repair Unspecified pruritic disorder 03/02/2009 Previous Surgical History PAST SURGICAL HISTORY Procedure Laterality Date 2D ECHO (EXEP) 01/16/2017 EF=60%, 1+ AK and TI CATARACT EXTRACTION HX Left 10/2019 CC CORONARY STENT 05/10/2020 RODDY to pLCx CC CORONARY STENT 12/2016 Ramus of Circ and LAD CC CORONARY STENT 11/20/2020 RODDY to pLCx and PTCA to OM2 CC CORONARY STENT 07/23/2021 PCI to prox Lt Circ in-stent restenosis then placement of RODDY FECAL OCCULT BLOOD TEST 04/19/2019 Negative PAST SURGICAL HISTORY OF 1971 appendix PAST SURGICAL HISTORY OF right foot -- tendon surgery PAST SURGICAL HISTORY OF 1999 +/- Right hand -- trauma, aneurysm repair/CTS release -- Dr. Llanes PAST SURGICAL HISTORY OF 2008 torn cartilage -- arthroscopy, left knee PAST SURGICAL HISTORY OF 2017 right hand ulnar artery aneurism repair. STRESS TEST 07/01/2018 negative STRESS TEST NUCLEAR 07/2019 negative Family History FAMILY HISTORY Problem Relation Age of Onset Lung Cancer Mother lung Coronary Artery Disease Sister former smoker Stroke Sister other (neurofibromatosis) Son from mother Patient Allergies ALLERGIES Allergen Reactions Florinef [Fludrocor* Angioedema Perfumes Other: See Comments sneezing Current Medications Current Outpatient Medications on File Prior to Visit Medication Sig pioglitazone (ACTOS) 30 mg tablet Take 1 tablet by mouth once daily. gabapentin (NEURONTIN) 600 mg tablet Take 1 tablet by mouth twice daily for 30 days. ferrous sulfate 325 mg (65 mg iron) tab (more content not included)... [facility] 10-05-2022 History of Present illness Narrative Chief Complaint Patient presents with: Follow Up: Low BS's and low BP HPI Michael Bates is a 67 year old male who presents here today for Above Complaints.. At last visit patient was instructed to stop his Amaryl which he did. He also stopped his Actos which I did not want him to do and this ws just restarted. With being on prednisone per cardio his FBS have ranged 130's-160. [place] hrs post meals have been in the 150's. No low BS's Patient did see Neuro who feels patient does not have Parkinson's of Myasthenia Gravis and meds were stopped. Since being off the Amantadine he has noticed much less dizziness. He also notes he now gets a warning prior and is able to sit down for a period of time. He took the pseudoephedrine but felt it made him dizzy and low blood pressure. I had informed him this medication would not cause these issues and was ment to treat them but he was not willing to restart it. Past medical history, appointments, medications, allergies reviewed. Previous Medical History PAST MEDICAL HISTORY Diagnosis Date Acute right-sided low back pain with right-sided sciatica 07/09/2016 Adhesive capsulitis of shoulder 12/04/2007 Adjustment disorder with depressed mood 10/16/2006 Anemia of chronic disease 02/14/2021 Benign non-nodular prostatic hyperplasia without lower urinary tract symptoms 10/03/2016 Bilateral chronic knee pain 10/10/2016 Bilateral occipital neuralgia 08/04/2015 Carotid stenosis, asymptomatic, bilateral 08/09/2015 US 08/2015: bilateral 20-40%, US 06/2017 Rt; 40-60% and Lt 60-80% monitored by cardio Cervical spondylosis 01/20/2012 Cervicalgia 10/16/2006 Cervicogenic headache 10/16/2015 Chronic post-traumatic headache 08/04/[address] Duque Chronic sinusitis Claudication (HCC) 06/04/2017 PVR's normal. Coronary atherosclerosis due to lipid rich plaque 01/20/[address] Kern. s/p RODDY to Ramus and RODDY to LAD placed 01/20/2017. COVID-19 virus infection 06/18/202106/2021 DDD (degenerative disc disease), cervical 01/20/2012 DDD (degenerative disc disease), lumbar 06/30/2016 Multi level, worse L2-L3 Diabetes (HCC) Diabetic eye exam ([facility]) 03/19/2017 Last done: 10/01/2018 Elevated LFTs 08/05/2015 Essential hypertension, benign GERD without esophagitis 06/12/2018 History of COVID-19 06/18/202106/2021 Illiteracy 10/09/2020 Leg pain, bilateral 06/04/2017 Lumbago 02/09/2010 * Dealing with on his own as of 08/2011 -- had a bad experience with a spine surgeon, nearly did surgery based on the wrong x-rays * Dates back to an injury while lifting 55 lbs Lumbar radiculopathy Migraine variant 07/22/2006 Since head injury around 1995 Mixed hyperlipidemia 08/04/2015 Neck pain, chronic 10/16/2015 Neuropathy 06/12/2018 Primary insomnia 03/02/2019 Radicular pain of right lower extremity 07/09/2016 S/P drug eluting coronary stent placement 01/20/201712/2016: 2 stents: Ramus of Circ and LAD S/P drug eluting coronary stent placement 01/20/201712/2016: 2 stents: Ramus of Circ and LAD, 05/10/20 RODDY to pLCx Sciatica 02/09/2010 Seborrheic dermatitis 08/04/2015 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 Ulnar artery aneurysm ([facility]) Right, s/p repair Unspecified pruritic disorder 03/02/2009 Previous Surgical History PAST SURGICAL HISTORY Procedure Laterality Date 2D ECHO (EXEP) 01/16/2017 EF=60%, 1+ AK and TI CATARACT EXTRACTION HX Left 10/2019 CC CORONARY STENT 05/10/2020 RODDY to pLCx CC CORONARY STENT 12/2016 Ramus of Circ and LAD CC CORONARY STENT 11/20/2020 RODDY to pLCx and PTCA to OM2 CC CORONARY STENT 07/23/2021 PCI to prox Lt Circ in-stent restenosis then placement of RODDY FECAL OCCULT BLOOD TEST 04/19/2019 Negative PAST SURGICAL HISTORY OF 1971 appendix PAST SURGICAL HISTORY OF right foot -- tendon surgery PAST SURGICAL HISTORY OF 1999 +/- Right hand -- trauma, aneurysm repair/CTS release -- Dr. Llanes PAST SURGICAL HISTORY OF 2008 torn cartilage -- arthroscopy, left knee PAST SURGICAL HISTORY OF 2017 right hand ulnar artery aneurism repair. STRESS TEST 07/01/2018 negative STRESS TEST NUCLEAR 07/2019 negative Family History FAMILY HISTORY Problem Relation Age of Onset Lung Cancer Mother lung Coronary Artery Disease Sister former smoker Stroke Sister other (neurofibromatosis) Son from mother Patient Allergies ALLERGIES Allergen Reactions Florinef [Fludrocor* Angioedema Perfumes Other: See Comments sneezing Current Medications Current Outpatient Medications on File Prior to Visit Medication Sig pioglitazone (ACTOS) 30 mg tablet Take 1 tablet by mouth once daily. gabapentin (NEURONTIN) 600 mg tablet Take 1 tablet by mouth twice daily for 30 days. ferrous sulfate 325 mg (65 mg iron) tablet Take 1 tablet by mouth twice daily with meals. ranolazine ER (RANEXA) 500 mg 12 hr tablet Take 1 tablet by mouth twice daily. Per cardio, Dr. Kern, not taking as of 06/28/2022 fluticasone (FLONASE) 50 mcg/actuation nasal spray INSTILL 2 SPRAYS IN EACH NOSTRIL ONCE DAILY metFORMIN ER (GLUCOPHAGE XR) 500 mg 24 hr tablet Take 2 tablets by mouth twice daily. nitroglycerin sublingual (NITROSTAT) 0.4 mg SL tablet Dissolve 1 tablet under the tongue every 5 minutes as needed for chest pain. atorvastatin (LIPITOR) 80 mg tablet Take 1 tablet by mouth once daily. Managed by cardiology, Dr. Kern clopidogrel (PLAVIX) 75 mg tablet Take 1 tablet by mouth once daily. Managed by [facility] omega-3 fatty acids 1,000 mg cap Take 2 capsules by mouth once daily. aspirin, enteric coated (ECOTRIN LOW STRENGTH) 81 mg EC tablet Take 1 tablet by mouth once daily. Blood-Glucose Meter monitoring kit Glucose Meter of Choice - Kit - Dx: Type 2 DM - Uncontrolled E11.65 Lancets lancets Test blood sugar(s) 2 times daily. Dx: Type 2 DM - Uncontrolled E11.65 Insulin: No blood sugar diagnostic (BLOOD GLUCOSE TEST) test strip Test blood sugar(s) 2 times daily. Dx: Type 2 DM - Uncontrolled E11.65 Insulin: No Blood Pressure Monitor kit 1 Each once daily. Blood Glucose Control High and Low (ACCU-CHEK MEGHANA CONTROL SOLN) soln Use as directed as indicated to check quality of test strips No current facility-administered medications on file prior to visit. Social History Social History Tobacco Use Smoking status: Never Smokeless tobacco: Former Types: Chew Quit date: 07/02/2014 Tobacco comments: 1 can of chewing tobacco every 3 days PT QUIT 2015 Vaping Use Vaping Use: Never used Substance Use Topics Alcohol use: No Drug use: No Review of Symptoms REVIEW OF SYSTEMS GENERAL: No weight loss, malaise or fevers RESPIRATORY: Negative for cough, hemoptysis, wheezing, COPD, dyspnea or shortness of breath CARDIOVASCULAR: Negative for chest pain, leg swelling, hypertension, CHF or palpitations ENDOCRINE: See HPI EXAM: BP 110/68 Pulse 77 Resp 16 Wt 78.9 kg (174 lb) SpO2 96% BMI 24.97 kg/m General Appearance: Well appearing, alert, in no acute distress, well-hydrated, well nourished.. Lungs: Lungs clear to auscultation. No wheezing, rhonchi, rales.. Heart: RRR without murmur, gallop, or rubs. No ectopy. Extremities: No deformities, edema, skin discoloration, clubbing or cyanosis. Good capillary refill. . Health Maintenance List BP CONTROLLED (<130/80) due on 12/06/2021 DILATED RETINAL EXAM due on 01/09/2022 ADVANCE DIRECTIVE DISCUSSION due on 09/01/2022 DEPRESSION ASSESSMENT due on 09/01/2022 URINE ALBUMIN:CREATININE RATIO due on 11/02/2022 COVID-19 VACCINE(2 - Pfizer series) due on 08/21/2023 HBA1C due on 11/10/2022 LDL CHOLESTEROL due on 04/17/2023 DIABETIC FOOT EXAM due on 05/13/2023 ANNUAL PCP TEAM CHRONIC DISEASE VISIT due on 08/21/2023 DTAP,TDAP,TD(4 - Td or Tdap) due on 03/01/2031 INFLUENZA Completed HEPATITIS C SCREENING Completed SHINGRIX VACCINE Completed PNEUMOCOCCAL: 65+ Completed COLORECTAL CANCER SCREENING Discontinued Data reviewed A/P ASSESSMENT/PLAN: 1. Type 2 diabetes mellitus with diabetic neuropathy, without long-term current use of insulin (HCC) - ICD9: 250.60, 357.2, ICD10: E11.40 (primary diagnosis) improved control - Continue current medications - BP goal of <130/80 - LDL goal of <100 - - encouraged patient to continue the Actos to try to get FBS below 120. Advised if the prednisone is stopped to monitor his FBS's and if getting blow 80 let me know so meds can be adjusted. 2. Essential hypertension, benign - ICD9: 401.1, ICD10: I10 - good control - Continue current medication(s) - Recommended regular aerobic exercise. - Recommend home blood pressure monitoring, to bring results in on next visit - cont management per Cardio for low BP's - Goal of BP <130/80 Has f/u in November. Sooner is issues. Nadir Grady MD documented in this encounter [facility] 10-02-2022 Miscellaneous Notes The following approved medication requests have been transmitted electronically. Requested Prescriptions Signed Prescriptions Disp Refills pioglitazone (ACTOS) 30 mg tablet 90 tablet 1 Sig: Take 1 tablet by mouth once daily. Authorizing Provider: NADIR GRADY MD Jaspal- [facility] reports she informed patient and sister, patient was instructed by pcp to hold amaryl, but he is suppose to keep taking actos. Reports they did not believe him. Jaspal asked this nurse to call patient and let him know doctor does want him to take actos. This nurse phoned patient and advised him doctor wanted him to hold his amaryl but keep taking the actos. Patient agreeable and states he will need a new Rx for actos sent to [facility]. Pended. documented in this encounter [facility] 09-24-2022 Miscellaneous Notes Jaspal Matilde-[facility] called and is notified of providers message and instructions. She voices understanding and states she will review that with the Pt. Jennifer Blue RN Let Jaspal know the only blood sugar medication I advised him and his sister in law (who was present at his appt with me on 08/21/2022) to hold was his Amaryl 2 mg a day. He was asked to keep record of his blood sugar fasting and 2 hrs after lunch and to bring this in with him at his f/u appt in a month. Jaspal Clayton with [facility] calls to report they take care of setting up pt's meds. Today pt reported to Jaspal that Actos was stopped. Jaspal is asking pcp if medication has been discontinued and if there is documentation concerning this could it please be faxed to: [phone]. Can call Jaspal @ [phone]. Actos is currently on pt's med chart. Aaliyah Horner LPN documented in this encounter [facility] 09-23-2022 Note HNO ID: [id number] Author: Miladys Butt APRN.[employer]BESTOS REMOVAL SUPERVISOR Service: ? Author Type: Nurse Practitioner Type: Progress Notes Filed: 09/23/2022 3:04 PM Note Text: Subjective Trauma Pertinent negatives include no fever or rash. Michael Bates is a 67 year old male who presents with bruising and pain to his left foot for the past week after dropping a piece of frozen chicken on it. He estimates the chicken 1.5-2 lbs. He rates his pain 8/10. He has taken aspirin for pain, used ice, and has soaked his foot in water with epsom salt. He states this helps for a bit of time but then the pain returns. Review of Systems Constitutional: Negative for fever. Musculoskeletal: Positive for joint pain. Negative for falls. Skin: Negative for itching and rash. BP 152/72 Pulse 75 Temp 36.6 ?C (97.8 ?F) Resp 21 Wt 81.1 kg (178 lb 12.8 oz) SpO2 98% BMI 25.66 kg/m? PAST MEDICAL HISTORY Diagnosis Date Acute right-sided low back pain with right-sided sciatica 07/09/2016 Adhesive capsulitis of shoulder 12/04/2007 Adjustment disorder with depressed mood 10/16/2006 Anemia of chronic disease 02/14/2021 Benign non-nodular prostatic hyperplasia without lower urinary tract symptoms 10/03/2016 Bilateral chronic knee pain 10/10/2016 Bilateral occipital neuralgia 08/04/2015 Carotid stenosis, asymptomatic, bilateral 08/09/2015 US 08/2015: bilateral 20-40%, US 06/2017 Rt; 40-60% and Lt 60-80% monitored by cardio Cervical spondylosis 01/20/2012 Cervicalgia 10/16/2006 Cervicogenic headache 10/16/2015 Chronic post-traumatic headache 08/04/[address] Duque Chronic sinusitis Claudication (HCC) 06/04/2017 PVR's normal. Coronary atherosclerosis due to lipid rich plaque 01/20/[address] Kern. s/p RODDY to Ramus and RODDY to LAD placed 01/20/2017. COVID-19 virus infection 06/18/202106/2021 DDD (degenerative disc disease), cervical 01/20/2012 DDD (degenerative disc disease), lumbar 06/30/2016 Multi level, worse L2-L3 Diabetes ([facility]) Diabetic eye exam ([facility]) 03/19/2017 Last done: 10/01/2018 Elevated LFTs 08/05/2015 Essential hypertension, benign GERD without esophagitis 06/12/2018 History of COVID-19 06/18/202106/2021 Illiteracy 10/09/2020 Leg pain, bilateral 06/04/2017 Lumbago 02/09/2010 * Dealing with on his own as of 08/2011 -- had a bad experience with a spine surgeon, nearly did surgery based on the wrong x-rays * Dates back to an injury while lifting 55 lbs Lumbar radiculopathy Migraine variant 07/22/2006 Since head injury around 1995 Mixed hyperlipidemia 08/04/2015 Neck pain, chronic 10/16/2015 Neuropathy 06/12/2018 Primary insomnia 03/02/2019 Radicular pain of right lower extremity 07/09/2016 S/P drug eluting coronary stent placement 01/20/201712/2016: 2 stents: Ramus of Circ and LAD S/P drug eluting coronary stent placement 01/20/201712/2016: 2 stents: Ramus of Circ and LAD, 05/10/20 RODDY to pLCx Sciatica 02/09/2010 Seborrheic dermatitis 08/04/2015 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, s/p repair Unspecified pruritic disorder 03/02/2009 PAST SURGICAL HISTORY Procedure Laterality Date 2D ECHO (EXEP) 01/16/2017 EF=60%, 1+ AK and TI CATARACT EXTRACTION HX Left 10/2019 CC CORONARY STENT 05/10/2020 RODDY to pLCx CC CORONARY STENT 12/2016 Ramus of Circ and LAD CC CORONARY STENT 11/20/2020 RODDY to pLCx and PTCA to OM2 CC CORONARY STENT 07/23/2021 PCI to prox Lt Circ in-stent restenosis then placement of RODDY FECAL OCCULT BLOOD TEST 04/19/2019 Negative PAST SURGICAL HISTORY OF 1971 appendix PAST SURGICAL HISTORY OF right foot -- tendon surgery PAST SURGICAL HISTORY OF 1999 +/- Right hand -- trauma, aneurysm repair/CTS release -- Dr. Llanes PAST SURGICAL HISTORY OF 2008 torn cartilage -- arthroscopy, left knee PAST SURGICAL HISTORY OF 2017 right hand ulnar artery aneurism repair. STRESS TEST 07/01/2018 negative STRESS TEST NUCLEAR 07/2019 negative ALLERGIES Florinef [Fludrocortisone] and Perfumes MEDICATIONS gabapentin (NEURONTIN) 600 mg tablet Take 1 tablet by mouth twice daily for 30 days. pyridostigmine (MESTINON) 60 mg tablet Take 1 tablet by mouth twice daily. Take one tablet at bedtime for two weeks then increase to one tablet in AM and one tablet in PM. ferrous sulfate 325 mg (65 mg iron) tablet Take 1 tablet by mouth twice daily with meals. Blood-Glucose Meter monitoring kit Glucose Meter of Choice - Kit - Dx: Type 2 DM - Uncontrolled E11.65 Lancets lancets Test blood sugar(s) 2 times daily. Dx: Type 2 DM - Uncontrolled E11.65 Insulin: No blood sugar diagnostic (BLOOD GLUCOSE TEST) test strip Test blood sugar(s) 2 times daily. Dx: Type 2 DM - Uncontrolled E11.65 Insulin: No fluticasone (FLONASE) 50 mcg/actuation nasal spray INSTILL 2 SPRAYS IN EACH NOSTRIL ONCE DAILY pioglitazone (ACTOS) 30 mg tablet Take 1 tablet by mouth once daily. (more content not included)... [facility] 09-23-2022 Note HNO ID: [id number] Author: Sasha Altamirano, RT(R) Service: Nuclear Medicine Author Type: Technologist Type: Progress Notes Filed: 09/23/2022 1:41 PM Note Text: Radiology Service Progress Note PATIENT NAME: Michael JARVISN: [id number] DATE OF SERVICE: September 23, 2022 TIME: 1:33 PM PATIENT IDENTITY VERIFICATION COMPLETED USING TWO (2) IDENTIFIERS: Name and Date of confirmed by patient verbally. FALL SCREENING: Has the patient had 2 falls in the last year or 1 fall with injury or currently using an Ambulatory Assistive Device (Walker, Cane, Wheelchair, Crutches, etc.)? No PATIENT GENDER DATA: Male PATIENT RELEVANT IMPLANT DATA REVIEWED: Not Applicable RADIOLOGY DEPARTMENT: General X-ray: Exam(s) Completed: Lower Extremity X-Ray(s): Foot, Left and Wt. Bearing PERIPHERAL IV DATA: Not applicable SIGNED BY: RT Angie(R) September 23, 2022 1:33 PM [facility] 09-23-2022 Instructions Jenna Jim APRN.CNP - 09/23/2022 3:05 PM EST Week 1 and 2: Take one tablet at bedtime Week 3 and 4 : Take twice per day (one tablet after breakfast and one tablet at bed) Keep monitoring your blood pressure. If the medication is helping you should notice less fatigue, stabilizing blood pressure, less dizziness, less high heart rates and better stamina. documented in this encounter [facility] 09-23-2022 Claudia Butt APRN.CNP - 09/23/2022 2:26 PM EST ASSESSMENT/PLAN: 1. Foot injury, left, initial encounter - ICD9: 959.7, ICD10: S99.922A - XR FOOT GENERAL 3V AP/LAT/OBL LEFT Radiologist IMPRESSION: No radiographic evidence of acute osseous injury. Dump Worker: FAWN Transcribe Date/Time: Sep 23 2022 1:46P Dictated by : PHYLLIS TORRES MD - Follow-up with your PCP in 3-5 days if symptoms have not improved or sooner if symptoms worsen - Discussed red flags and need for immediate medical evaluation if any occur. - Discussed supportive care treatment with fluids, rest and analgesia. - Discussed expected course of illness Miladys Butt APRN.[employer]BE[employer]OS REMOVAL SUPERVISOR documented in this encounter [facility] 09-23-2022 History of Present illness Narrative Images from the original note were not included. Subjective Trauma Pertinent negatives include no fever or rash. Michael Bates is a 67 year old male who presents with bruising and pain to his left foot for the past week after dropping a piece of frozen chicken on it. He estimates the chicken 1.5-2 lbs. He rates his pain 8/10. He has taken aspirin for pain, used ice, and has soaked his foot in water with epsom salt. He states this helps for a bit of time but then the pain returns. Review of Systems Constitutional: Negative for fever. Musculoskeletal: Positive for joint pain. Negative for falls. Skin: Negative for itching and rash. BP 152/72 Pulse 75 Temp 36.6 C (97.8 F) Resp 21 Wt 81.1 kg (178 lb 12.8 oz) SpO2 98% BMI 25.66 kg/m PAST MEDICAL HISTORY Diagnosis Date Acute right-sided low back pain with right-sided sciatica 07/09/2016 Adhesive capsulitis of shoulder 12/04/2007 Adjustment disorder with depressed mood 10/16/2006 Anemia of chronic disease 02/14/2021 Benign non-nodular prostatic hyperplasia without lower urinary tract symptoms 10/03/2016 Bilateral chronic knee pain 10/10/2016 Bilateral occipital neuralgia 08/04/2015 Carotid stenosis, asymptomatic, bilateral 08/09/2015 US 08/2015: bilateral 20-40%, US 06/2017 Rt; 40-60% and Lt 60-80% monitored by cardio Cervical spondylosis 01/20/2012 Cervicalgia 10/16/2006 Cervicogenic headache 10/16/2015 Chronic post-traumatic headache 08/04/[address] Duque Chronic sinusitis Claudication (HCC) 06/04/2017 PVR's normal. Coronary atherosclerosis due to lipid rich plaque 01/20/[address] Kern. s/p RODDY to Ramus and RODDY to LAD placed 01/20/2017. COVID-19 virus infection 06/18/202106/2021 DDD (degenerative disc disease), cervical 01/20/2012 DDD (degenerative disc disease), lumbar 06/30/2016 Multi level, worse L2-L3 Diabetes (HCC) Diabetic eye exam ([facility]) 03/19/2017 Last done: 10/01/2018 Elevated LFTs 08/05/2015 Essential hypertension, benign GERD without esophagitis 06/12/2018 History of COVID-19 06/18/202106/2021 Illiteracy 10/09/2020 Leg pain, bilateral 06/04/2017 Lumbago 02/09/2010 * Dealing with on his own as of 08/2011 -- had a bad experience with a spine surgeon, nearly did surgery based on the wrong x-rays * Dates back to an injury while lifting 55 lbs Lumbar radiculopathy Migraine variant 07/22/2006 Since head injury around 1995 Mixed hyperlipidemia 08/04/2015 Neck pain, chronic 10/16/2015 Neuropathy 06/12/2018 Primary insomnia 03/02/2019 Radicular pain of right lower extremity 07/09/2016 S/P drug eluting coronary stent placement 01/20/201712/2016: 2 stents: Ramus of Circ and LAD S/P drug eluting coronary stent placement 01/20/201712/2016: 2 stents: Ramus of Circ and LAD, 05/10/20 RODDY to pLCx Sciatica 02/09/2010 Seborrheic dermatitis 08/04/2015 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 Ulnar artery aneurysm ([facility]) Right, s/p repair Unspecified pruritic disorder 03/02/2009 PAST SURGICAL HISTORY Procedure Laterality Date 2D ECHO (EXEP) 01/16/2017 EF=60%, 1+ AK and TI CATARACT EXTRACTION HX Left 10/2019 CC CORONARY STENT 05/10/2020 RODDY to pLCx CC CORONARY STENT 12/2016 Ramus of Circ and LAD CC CORONARY STENT 11/20/2020 RODDY to pLCx and PTCA to OM2 CC CORONARY STENT 07/23/2021 PCI to prox Lt Circ in-stent restenosis then placement of RODDY FECAL OCCULT BLOOD TEST 04/19/2019 Negative PAST SURGICAL HISTORY OF 1972 appendix PAST SURGICAL HISTORY OF right foot -- tendon surgery PAST SURGICAL HISTORY OF 1999 +/- Right hand -- trauma, aneurysm repair/CTS release -- Dr. Llanes PAST SURGICAL HISTORY OF 2008 torn cartilage -- arthroscopy, left knee PAST SURGICAL HISTORY OF 2018 right hand ulnar artery aneurism repair. STRESS TEST 07/01/2018 negative STRESS TEST NUCLEAR 07/2019 negative ALLERGIES Florinef [Fludrocortisone] and Perfumes MEDICATIONS gabapentin (NEURONTIN) 600 mg tablet Take 1 tablet by mouth twice daily for 30 days. pyridostigmine (MESTINON) 60 mg tablet Take 1 tablet by mouth twice daily. Take one tablet at bedtime for two weeks then increase to one tablet in AM and one tablet in PM. ferrous sulfate 325 mg (65 mg iron) tablet Take 1 tablet by mouth twice daily with meals. Blood-Glucose Meter monitoring kit Glucose Meter of Choice - Kit - Dx: Type 2 DM - Uncontrolled E11.65 Lancets lancets Test blood sugar(s) 2 times daily. Dx: Type 2 DM - Uncontrolled E11.65 Insulin: No blood sugar diagnostic (BLOOD GLUCOSE TEST) test strip Test blood sugar(s) 2 times daily. Dx: Type 2 DM - Uncontrolled E11.65 Insulin: No fluticasone (FLONASE) 50 mcg/actuation nasal spray INSTILL 2 SPRAYS IN EACH NOSTRIL ONCE DAILY pioglitazone (ACTOS) 30 mg tablet Take 1 tablet by mouth once daily. metFORMIN ER (GLUCOPHAGE XR) 500 mg 24 hr tablet Take 2 tablets by mouth twice daily. nitroglycerin sublingual (NITROSTAT) 0.4 mg SL tablet Dissolve 1 tablet under the tongue every 5 minutes as needed for chest pain. atorvastatin (LIPITOR) 80 mg tablet Take 1 tablet by mouth once daily. Managed by cardiology, Dr. Kern clopidogrel (PLAVIX) 75 mg tablet Take 1 tablet by mouth once daily. Managed by [facility] omega-3 fatty acids 1,000 mg cap Take 2 capsules by mouth once daily. aspirin, enteric coated (ECOTRIN LOW STRENGTH) 81 mg EC tablet Take 1 tablet by mouth once daily. Blood Pressure Monitor kit 1 Each once daily. Blood Glucose Control High and Low (ACCU-CHEK MEGHANA CONTROL SOLN) soln Use as directed as indicated to check quality of test strips ranolazine ER (RANEXA) 500 mg 12 hr tablet Take 1 tablet by mouth twice daily. Per cardio, Dr. Kern, not taking as of 06/28/2022 (Patient not taking: Reported on 09/19/2022) glimepiride (AMARYL) 2 mg tablet Take 1 tablet by mouth daily with breakfast. (Patient not taking: Reported on 09/19/2022) FAMILY HISTORY Problem Relation Age of Onset Lung Cancer Mother lung Coronary Artery Disease Sister former smoker Stroke Sister other (neurofibromatosis) Son from mother Social History Tobacco Use Smoking status: Never Smokeless tobacco: Former Types: Chew Quit date: 07/02/2014 Tobacco comments: 1 can of chewing tobacco every 3 days PT QUIT 2014 Vaping Use Vaping Use: Never used Substance Use Topics Alcohol use: No Drug use: No Objective Physical Exam Vitals and nursing note reviewed. Constitutional: Appearance: Normal appearance. Musculoskeletal: General: Swelling (slight), tenderness and signs of injury present. No deformity. Left foot: Normal range of motion and normal capillary refill. Swelling, tenderness and bony tenderness present. No deformity, bunion or crepitus. Normal pulse. Feet: Skin: General: Skin is warm and dry. Capillary Refill: Capillary refill takes less than 2 seconds. Findings: Bruising present. No erythema or rash. Neurological: Mental Status: He is alert. ASSESSMENT/PLAN: 1. Foot injury, left, initial encounter - ICD9: 959.7, ICD10: S99.922A - XR FOOT GENERAL 3V AP/LAT/OBL LEFT Radiologist IMPRESSION: No radiographic evidence of acute osseous injury. Dump Worker: FAWN Transcribe Date/Time: Sep 23 2022 1:46P Dictated by : PHYLLIS TORRES MD - Follow-up with your PCP in 3-5 days if symptoms have not improved or sooner if symptoms worsen - Discussed red flags and need for immediate medical evaluation if any occur. - Discussed supportive care treatment with fluids, rest and analgesia. - Discussed expected course of illness Miladys Butt APRN.CNP documented in this encounter [facility] 09-19-2022 Note HNO ID: [id number] Author: Jenna Jim APRN.CNP Service: ? Author Type: Nurse Practitioner Type: Progress Notes Filed: 09/23/2022 3:12 PM Note Text: [facility] [place] Follow-up Visit Follow-up note September 19, 2022 HPI: Mr. Batse presents today for a follow-up visit. Per his previous visit on 02/07/22: R55 Syncope, unspecified syncope type (primary encounter diagnosis) I95.1 Orthostatic hypotension Comment: Patient presenting today for multiple syncopal episodes starting in October 2021. He has experienced four additional episodes since that time. Episodes can be preceded by a lightheaded feeling, tinnitus, or numbness to both legs and can last for up to 30 minutes. Notable hx of htn, hld, CAD, TIA, DM, COVID in 06/21, post traumatic headache. Extensive workup has been completed thus far by PCP and cardiology including MRI of brain, CT brain, stress test, cardiac workup (recent echo completed in 07/22), and has received Loop Recorder. Cardiac cath scheduled for this upcoming Friday. 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 Previously noted to have low blood pressure during OV with PCP and has been adjusting BP medications. Has also been started on midodrine by cardiology. Note, had SE with use of fludrocortisone. Orthostatic VS assessed in office today with significant drop from sitting to standing. Pt reports feeling off balance and lightheaded during evaluation. Note, pt wearing compression stockings during assessment. Additionally on exam, pt noted to have shuffling gait and decreased L arm swing. Slight balance concern when turning and retropulsion on pull test. Taking these findings in addition to subjective report of voice and taste changes, balance concerns, as well as dream reenactment, concern for possible PD. Discussed possible medications used for PD, however, these medications may also exacerbate orthostatic concerns. At this time will await results of further cardiac testing scheduled for Friday02/11/22. Would also recommend continuing to follow up with cardiology for medication management and adjustment; currently on midodrine 10mg TID. May need to consider consult to autonomic clinic if no further improvement in pressure. In interim continue utilizing compression stockings and maintaining adequate hydration and nutrition (proteins and salts). R20.0 Facial numbness S09.90XS HX of injury of head, sequela G44.329 Chronic post-traumatic headache, not intractable Comment: Patient reporting baseline facial numbness since head injury in 1972. Numbness extends from the back of his neck, over his scalp, and down his face to the top of his lip. States he feels like he is wearing a hat. Has had imaging of the brain since this sensation began with most recent imaging being last year (note that imaging completed due to increased migraines). MRI of brain from 07/21/21 reviewed and unremarkable. Previously taking gabapentin 800mg BID as well as amitriptyline 150mg QHS without relief of symptoms. He reports that he has previously taken injectable medications and was following with Dr. Gold with pain management. Could consider use of Lyrica, however, given concern for episodes related to drop in BP will hold off on initiation of medications at this time. Can continue to follow with pain management as well. Saw neurology earlier today at [facility]. Per [facility] Dr. العلي at appointment earlier today (09/19/22): HPI: Note: Have syncope for the past year. He reports he is getting low blood pressure. Was treated with midodrine but had to stop it. He is diabetic. MRI brain with atrophy, microvascular disease. CAD with 5 stents. He has trouble with anemia and is on iron. In April he was put on amantadine for tremor - had a spell of dizziness, walking trouble. He is on gabapentin 800 mg BID He is also on Amitriptyline 150 mg a day He is on ativan for rescue anxiety. He has pain in the back of the head from hitting his head. He has history of multiple head injury. Saw neurology is [place] - orthostatic - med SE, no overt Parkinson's, maybe from diabetic neuropathy, maybe from medications. Assessment and Plan Assessment and Plan 1. Syncope due to low blood pressure. Risk of autonomic dysfunction with diabetes and cardiac disease. Medications can contribute - Amantadine, amitriptyline, gabapentin, lorazepam. Reduce amantadine to see if helps the low blood pressure. Agree with strategies as outlined by previous neurologist for treatment of low blood pressure. 2. Headache Pain in scalp from falling. Already on high dose of amitriptyline. Using topical analgesic patch. Discussion Note: None recorded. Patient educational handouts: No information available. States Dr. العلي ruled out Parkinson's. States that this neurologist told him he should stop amantadine. Though states he has not been sadie (more content not included)... [facility] 09-19-2022 History of Present illness Narrative Images from the original note were not included. [facility] [place] Follow-up Visit Follow-up note September 19, 2022 HPI: Mr. Bates presents today for a follow-up visit. Per his previous visit on 02/07/22: R55 Syncope, unspecified syncope type (primary encounter diagnosis) I95.1 Orthostatic hypotension Comment: Patient presenting today for multiple syncopal episodes starting in October 2021. He has experienced four additional episodes since that time. Episodes can be preceded by a lightheaded feeling, tinnitus, or numbness to both legs and can last for up to 30 minutes. Notable hx of htn, hld, CAD, TIA, DM, COVID in 06/21, post traumatic headache. Extensive workup has been completed thus far by PCP and cardiology including MRI of brain, CT brain, stress test, cardiac workup (recent echo completed in 07/22), and has received Loop Recorder. Cardiac cath scheduled for this upcoming Friday. 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 Previously noted to have low blood pressure during OV with PCP and has been adjusting BP medications. Has also been started on midodrine by cardiology. Note, had SE with use of fludrocortisone. Orthostatic VS assessed in office today with significant drop from sitting to standing. Pt reports feeling off balance and lightheaded during evaluation. Note, pt wearing compression stockings during assessment. Additionally on exam, pt noted to have shuffling gait and decreased L arm swing. Slight balance concern when turning and retropulsion on pull test. Taking these findings in addition to subjective report of voice and taste changes, balance concerns, as well as dream reenactment, concern for possible PD. Discussed possible medications used for PD, however, these medications may also exacerbate orthostatic concerns. At this time will await results of further cardiac testing scheduled for Friday02/11/22. Would also recommend continuing to follow up with cardiology for medication management and adjustment; currently on midodrine 10mg TID. May need to consider consult to autonomic clinic if no further improvement in pressure. In interim continue utilizing compression stockings and maintaining adequate hydration and nutrition (proteins and salts). R20.0 Facial numbness S09.90XS HX of injury of head, sequela G44.329 Chronic post-traumatic headache, not intractable Comment: Patient reporting baseline facial numbness since head injury in 1972. Numbness extends from the back of his neck, over his scalp, and down his face to the top of his lip. States he feels like he is wearing a hat. Has had imaging of the brain since this sensation began with most recent imaging being last year (note that imaging completed due to increased migraines). MRI of brain from 07/21/21 reviewed and unremarkable. Previously taking gabapentin 800mg BID as well as amitriptyline 150mg QHS without relief of symptoms. He reports that he has previously taken injectable medications and was following with Dr. Gold with pain management. Could consider use of Lyrica, however, given concern for episodes related to drop in BP will hold off on initiation of medications at this time. Can continue to follow with pain management as well. Saw neurology earlier today at [facility]. Per [facility] Dr. العلي at appointment earlier today (09/19/22): HPI: Note: Have syncope for the past year. He reports he is getting low blood pressure. Was treated with midodrine but had to stop it. He is diabetic. MRI brain with atrophy, microvascular disease. CAD with 5 stents. He has trouble with anemia and is on iron. In April he was put on amantadine for tremor - had a spell of dizziness, walking trouble. He is on gabapentin 800 mg BID He is also on Amitriptyline 150 mg a day He is on ativan for rescue anxiety. He has pain in the back of the head from hitting his head. He has history of multiple head injury. Saw neurology is [place] - orthostatic - med SE, no overt Parkinson's, maybe from diabetic neuropathy, maybe from medications. Assessment and Plan Assessment and Plan 1. Syncope due to low blood pressure. Risk of autonomic dysfunction with diabetes and cardiac disease. Medications can contribute - Amantadine, amitriptyline, gabapentin, lorazepam. Reduce amantadine to see if helps the low blood pressure. Agree with strategies as outlined by previous neurologist for treatment of low blood pressure. 2. Headache Pain in scalp from falling. Already on high dose of amitriptyline. Using topical analgesic patch. Discussion Note: None recorded. Patient educational handouts: No information available. States Dr. العلي ruled out Parkinson's. States that this neurologist told him he should stop amantadine. Though states he has not been taking Amantadine anyways. Was also concerned about gabapentin; recommended decreasing does to once per day or decreasing the dose. States this was felt to be contributing to low BP, dizziness, vision changes. Wanted him to reduce his amitriptyline from 150mg as this may contribute to dizziness. Also was concerned that he was started on Sudafed but was concerned this may be contraindicated with his heart issues. On review of chart amitryptiline was discontinued in 04/[address] Grady. Currently using lidocaine patches instead for pain. Has not been taking midodrine due to cost. Has not been taking Amaryl. States he is on gabapentin for seizure though states he was never diagnosed via EEG. This was started for head shaking and tremors. States this also happened once when his son was in the hospital and he was given a benzodiazepine and this stopped his symptoms. Currently takes a benzo 0.5mg prn. Has been keeping track of blood pressure. Presents with BP log with multiple BP's in 60's and 70's. He did have appointment with autonomic clinic. Balaji Gagnon 04/25/22: Balaji Gagnon CNP on 04/25/22: IMPRESSION/PLAN: Michael Bates is a 67 year old male with hx of CAD, HLD, HTN, DM, Covid-19 (2020) Migraine presents today for evaluation and treatment of orthostatic hypotension with recurrent episodes of syncope. He was referred for evaluation for autonomic dysfunction with possible parkinson's disease. Orthostatic hypotension is evident on orthostatic vitals assessment with BP dropping from 113/75 down to 78/53. He is currently on midodrine 10 mg TID however he has only take one dose at time of appointment today. He does not have bradyphrenia, bradykinesia, shuffled gait, or mask like face to raise concern of central cause of autonomic dysfunction e.g. MSA vs Parkinson's. Decreased pinprick, and vibration sensation to lower extremities is concerning for small fiber neuropathy which is likely contributing to OH. Neuropathy is likely secondary to diabetes. We discussed possible confirmation of neuropathy with tests such as skin nerve biopsy however he has restrictions with transportation and would be difficulty to go to [place] to complete. Medications can also be contributing to his symptoms. He is taking amitriptyline 150 mg for sleep which could contribute to orthostasis. He has been on this medication for about 3 years and I can not be sure if or how much this may contributing, however I am recommending he follow up with PCP to discuss discontinuation and alternate treatment options. We discussed the role of non-pharmacologic therapy such as increasing fluid and electrolyte intake, changing position slowly, and continued work with increasing exercise. He does not have apparent signs of parkinson's, however autonomic dysfunction can be early symptoms. We discussed various treatment options. We discussed adding amantadine 100 mg BID and continuing Midodrine 10 TID. We discussed importance of taking medication as prescribed and avoid laying down 3-4 hours after each dose of midodrine to avoid supine hypertension. If other symptoms of parkinson arise I would recommend evaluation with movement specialist. Additionally he has had ongoing concerns for occipital neuralgia affecting right side. He will have episodes of shooting pain multiple times per day lasting a few seconds at a time. Pain is reproducible on palpitation in office today. We discussed occipital nerve blocks which he reports he may have had a few years ago and had benefit. He will use lidocaine patches at home which provide some temporary relief. Ortostatic Hypotension. Conservative Measures Increased water intake (2-2.5 liters of water daily) Increased salt intake (3-5 grams daily) Compression stockings Increased Exercise Medication Changes Continue Midodrine 10 mg three times per day Start Amantadine 100 mg twice per day Discuss with Dr. Grady regarding stopping amitriptyline in setting of orthostasis Occipital Neuralgia Occipital nerve block given in office today Drinking about 8 bottles of water per day. Eating three meals per day and snacking. Not restricting sodium. Not wearing compression stockings today but does wear them at home. Reports generalized weakness. Feels like he can't exercise like he used to. States exercise hurts his muscles. States he did pass out in [place] four weeks ago. Tremors intermittently in hands. Did get occipital nerve block which relieved pain for only two days. Had a fall two months ago where he injured his head and pain increased. Intermittent facial numbness. Cardiac testing was normal. No evidence of abnormality on loop recorder. Reports occasional intermittent cold feeling in his chest. PAST MEDICAL HISTORY Diagnosis Date Acute right-sided low back pain with right-sided sciatica 07/09/2016 Adhesive capsulitis of shoulder 12/04/2007 Adjustment disorder with depressed mood 10/16/2006 Anemia of chronic disease 02/14/2021 Benign non-nodular prostatic hyperplasia without lower urinary tract symptoms 10/03/2016 Bilateral chronic knee pain 10/10/2016 Bilateral occipital neuralgia 08/04/2015 Carotid stenosis, asymptomatic, bilateral 08/09/2015 US 08/2015: bilateral 20-40%, US 06/2017 Rt; 40-60% and Lt 60-80% monitored by cardio Cervical spondylosis 01/20/2012 Cervicalgia 10/16/2006 Cervicogenic headache 10/16/2015 Chronic post-traumatic headache 08/04/[address] Duque Chronic sinusitis Claudication (HCC) 06/04/2017 PVR's normal. Coronary atherosclerosis due to lipid rich plaque 01/20/[address] Kern. s/p RODDY to Ramus and RODDY to LAD placed 01/20/2017. COVID-19 virus infection 06/18/202106/2021 DDD (degenerative disc disease), cervical 01/20/2012 DDD (degenerative disc disease), lumbar 06/30/2016 Multi level, worse L2-L3 Diabetes ([facility]) Diabetic eye exam ([facility]) 03/19/2017 Last done: 10/01/2018 Elevated LFTs 08/05/2015 Essential hypertension, benign GERD without esophagitis 06/12/2018 History of COVID-19 06/18/202106/2021 Illiteracy 10/09/2020 Leg pain, bilateral 06/04/2017 Lumbago 02/09/2010 * Dealing with on his own as of 08/2011 -- had a bad experience with a spine surgeon, nearly did surgery based on the wrong x-rays * Dates back to an injury while lifting 55 lbs Lumbar radiculopathy Migraine variant 07/22/2006 Since head injury around 1995 Mixed hyperlipidemia 08/04/2015 Neck pain, chronic 10/16/2015 Neuropathy 06/12/2018 Primary insomnia 03/02/2019 Radicular pain of right lower extremity 07/09/2016 S/P drug eluting coronary stent placement 01/20/201712/2016: 2 stents: Ramus of Circ and LAD S/P drug eluting coronary stent placement 01/20/201712/2016: 2 stents: Ramus of Circ and LAD, 05/10/20 RODDY to pLCx Sciatica 02/09/2010 Seborrheic dermatitis 08/04/2015 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, s/p repair Unspecified pruritic disorder 03/02/2009 PAST SURGICAL HISTORY Procedure Laterality Date 2D ECHO (EXEP) 01/16/2017 EF=60%, 1+ AK and TI CATARACT EXTRACTION HX Left 10/2019 CC CORONARY STENT 05/10/2020 RODDY to pLCx CC CORONARY STENT 12/2016 Ramus of Circ and LAD CC CORONARY STENT 11/20/2020 RODDY to pLCx and PTCA to OM2 CC CORONARY STENT 07/23/2021 PCI to prox Lt Circ in-stent restenosis then placement of RODDY FECAL OCCULT BLOOD TEST 04/19/2019 Negative PAST SURGICAL HISTORY OF 1971 appendix PAST SURGICAL HISTORY OF right foot -- tendon surgery PAST SURGICAL HISTORY OF 1999 +/- Right hand -- trauma, aneurysm repair/CTS release -- Dr. Llanes PAST SURGICAL HISTORY OF 2008 torn cartilage -- arthroscopy, left knee PAST SURGICAL HISTORY OF 2017 right hand ulnar artery aneurism repair. STRESS TEST 07/01/2018 negative STRESS TEST NUCLEAR 07/2019 negative Current Outpatient Medications on File Prior to Visit Medication Sig ferrous sulfate 325 mg (65 mg iron) tablet Take 1 tablet by mouth twice daily with meals. gabapentin (NEURONTIN) 800 mg tablet Take 1 tablet by mouth twice daily for 90 days. ranolazine ER (RANEXA) 500 mg 12 hr tablet Take 1 tablet by mouth twice daily. Per cardio, Dr. Kern, not taking as of 06/28/2022 glimepiride (AMARYL) 2 mg tablet Take 1 tablet by mouth daily with breakfast. Blood-Glucose Meter monitoring kit Glucose Meter of Choice - Kit - Dx: Type 2 DM - Uncontrolled E11.65 Lancets lancets Test blood sugar(s) 2 times daily. Dx: Type 2 DM - Uncontrolled E11.65 Insulin: No blood sugar diagnostic (BLOOD GLUCOSE TEST) test strip Test blood sugar(s) 2 times daily. Dx: Type 2 DM - Uncontrolled E11.65 Insulin: No fluticasone (FLONASE) 50 mcg/actuation nasal spray INSTILL 2 SPRAYS IN EACH NOSTRIL ONCE DAILY pioglitazone (ACTOS) 30 mg tablet Take 1 tablet by mouth once daily. metFORMIN ER (GLUCOPHAGE XR) 500 mg 24 hr tablet Take 2 tablets by mouth twice daily. nitroglycerin sublingual (NITROSTAT) 0.4 mg SL tablet Dissolve 1 tablet under the tongue every 5 minutes as needed for chest pain. atorvastatin (LIPITOR) 80 mg tablet Take 1 tablet by mouth once daily. Managed by cardiology, Dr. Kern clopidogrel (PLAVIX) 75 mg tablet Take 1 tablet by mouth once daily. Managed by [facility] omega-3 fatty acids 1,000 mg cap Take 2 capsules by mouth once daily. aspirin, enteric coated (ECOTRIN LOW STRENGTH) 81 mg EC tablet Take 1 tablet by mouth once daily. Blood Pressure Monitor kit 1 Each once daily. Blood Glucose Control High and Low (ACCU-CHEK MEGHANA CONTROL SOLN) soln Use as directed as indicated to check quality of test strips No current facility-administered medications on file prior to visit. Social History Tobacco Use Smoking status: Never Smokeless tobacco: Former Types: Chew Quit date: 07/02/2014 Tobacco comments: 1 can of chewing tobacco every 3 days PT QUIT 2014 Vaping Use Vaping Use: Never used Substance Use Topics Alcohol use: No Drug use: No ALLERGIES Allergen Reactions Florinef [Fludrocor* Angioedema Perfumes Other: See Comments sneezing Review of Systems: ENT: denies loss of hearing, + vertigo (chronic), + tinnitus Vision: denies blurring vison, double vision/diplopia Dermatologic: denies rash Cardiopulmonary: denies + chest pain, palpitations Respiratory: denies + shortness of breath (with chest pain) GI: denies recent nausea, vomiting, diarrhea, constipation : denies incontinence Psych: denies depression, anxiety Sleep: + issues with sleeping (falling asleep) Heme: denies + easy bruising/bleeding Musculoskeletal: denies weakness, joint ache/pain Back/spine: denies + low back or + cervical pains Neuro: Denies + tremors, loss of feeling, + dizziness, seizure, + blackout, + paresthesia, facial paresthesia, facial weakness, difficulty in speech, slurring of words, dysarthria, dysphagia, memory loss, + headache Physical Exam: 09/19/22 1525 BP: 128/82 BP Site: Left Arm BP Position: Sitting Pulse: 76 Resp: 16 Temp: 36.5 C (97.7 F) SpO2: 95% Weight: 78.7 kg (173 lb 6.4 oz) Patient is alert and in no distress. Dress is appropriate. Mood is appropriate Breathing appears regular and unstressed Neurologic examination: Cognitively intact. No deficits. No formal MMSE performed. CN: Pupils equal and reactive to light, extraocular movements intact with no nystagmus, face is symmetric with no facial droop, facial sensation intact bilaterally to light touch. V1-3, hearing intact bilaterally, symmetric evaluation of the soft palate, tongue is midline with no deviation, shoulder shrug is symmetric. Motor exam shows 5/5 strength symmetric through the upper and lower extremities in all groups tested. Sensory intact to light touch in all extremities. Vibratory sensation is intact and symmetric all extremities. Proprioception intact. Deep tendon reflexes are symmetric at the biceps, brachioradialis, triceps, patella, and achilles bilaterally. Negative Chau's bilaterally. Coordination: No dysmetria on finger to nose. No tremors noted. No drift seen. Shuffling gait, decreased arm swing on L. Good body turn though pt mildly off balance. Retropulsion on pull test. АННА of pronation and supination, finger and hand tapping intact. Toe tapping intact. Mild rigidity to BUE, bradykinesia. No tremors. Rises from chair without using arms. Labs/studies: Cardiac Cath 02/11/22: CT Brain Report CT BRAIN WO IVCON Exam End: 04/05/2022 2:00 PM (Final result) Narrative: * * *Final Report* * * DATE OF EXAM: Apr 05 2022 2:00PM [facility] 0504 - CT BRAIN WO IVCON / PROCEDURE REASON: Seizure, new-onset, no history of trauma * * * * Physician Interpretation * * * * EXAMINATION: CT BRAIN WO IVCON CLINICAL HISTORY: Seizure, new-onset, no history of trauma TECHNIQUE: Serial axial images without IV contrast were obtained from the vertex to the foramen magnum. MQ: [id number] CT Radiation dose: Integrated Dose-Length Product (DLP) for this visit = 715.81 mGy*cm CT Dose Reduction Employed: Iterative recon COMPARISON: 03/19/2022 RESULT: Post-operative change: None. Acute change: No evidence of an acute infarct or other acute parenchymal process. Hemorrhage: No evidence of acute intracranial hemorrhage. ECASS hemorrhagic transformation score: Not Applicable Mass Lesion / Mass Effect: There is no evidence of an intracranial mass or extraaxial fluid collection. No significant mass effect. Chronic change: None apparent. Parenchyma: There is no significant volume loss. The brain parenchyma is otherwise within normal limits for age. Ventricles: The ventricles are within normal limits of size and configuration for age. Paranasal sinuses and skull base: The visualized paranasal sinuses are grossly clear. The skull base and imaged soft tissues are unremarkable. Criminal Justice Social Worker (topogram) images: No acute findings Impression: IMPRESSION: No significant change. No acute intracranial process Dump Worker: FAWN Transcribe Date/Time: Apr 05 2022 2:06P Dictated by : CEDRIC MARCUS MD This examination was interpreted and the report reviewed and electronically signed by: CEDRIC MARCUS MD on Apr 05 2022 2:08PM EST Previously Reviewed: MRI Brain 07/21/21: 1. Normal brain. 2. No acute or focal disease. CT Brain 11/02/21: Normal soft tissue structures. Normal calvarium. Normal size ventricles and extra-axial spaces for the patient''s age. Normal white matter tracts of the cerebral hemispheres. There are small punctate calcifications of the basal ganglia which are seen in the aging brain as a normal variant. Normal brainstem. Normal cerebellum. There is no intracranial hemorrhage. There are no findings of an acute ischemic infarction. Atherosclerotic calcification of the cavernous portions of the internal carotid arteries bilaterally. Normal visualized paranasal sinuses. _ IMPRESSION: Normal unenhanced CT scan of the brain. CT Brain 10/16/21: Normal soft tissue structures. Normal calvarium. Normal size ventricles and extra-axial spaces for the patient''s age. Normal white matter tracts of the cerebral hemispheres. There are small punctate calcifications of the basal ganglia which are seen in the aging brain as a normal variant. Normal brainstem. Normal cerebellum. There is no intracranial hemorrhage. There are no findings of an acute ischemic infarction. Normal visualized paranasal sinuses. IMPRESSION: Normal unenhanced CT scan of the brain. CT Cervical Spine 10/16/21: FINDINGS: Normal craniovertebral junction. Normal anterior atlantoaxial articulation. Normal odontoid process. There is straightening of the normal cervical lordosis. Normal vertebral bodies and posterior osseous elements. C2-3: Normal endplates. Normal disc height and morphology. Normal central canal and intervertebral neuroforamina. C3-4: Normal endplates. Normal disc height and morphology. Normal central canal and intervertebral neuroforamina. C4-5: Normal endplates. Normal disc height and morphology. Normal central canal and intervertebral neuroforamina. C5-6: Normal endplates. Normal disc height and morphology. Normal central canal and intervertebral neuroforamina. C6-7: Normal endplates. Normal disc height and morphology. Normal central canal and intervertebral neuroforamina. C7-T1: Normal endplates. Normal disc height and morphology. Normal central canal and intervertebral neuroforamina. Normal visualized soft tissue structures. _ IMPRESSION: Normal unenhanced CT examination of the cervical spine. US Carotid Arteries 10/31/21: IMPRESSION Compared to prior study of 06/11/2017, no significant change. RIGHT SIDE Common carotid artery: Plaque visualized without evidence of hemodynamically significant stenosis. Internal carotid artery: 40-59% stenosis. Vertebral artery: Patent and antegrade flow noted. LEFT SIDE Common carotid artery: Plaque visualized without evidence of hemodynamically significant stenosis. Internal carotid artery: 60-79% stenosis. Vertebral artery: Patent and antegrade flow noted. Assessment/Plan: R55 Syncope, unspecified syncope type (primary encounter diagnosis) I95.1 Orthostatic hypotension Comment: Patient previously seen in general neurology clinic in January of 2022 for multiple syncopal episodes since 10/2021. Episodes can be preceded by a lightheaded feeling, tinnitus, or numbness to both legs and can last for up to 30 minutes. Previous extensive workup completed and unremarkable including MRI and CT brain as well as cardiac workup including cardiac cath, echo, Loop Recorder. Episodes likely attributed to orthostatic blood pressure and he has started trial of multiple medications. Pt reports allergic reaction to Florinef and unfortunately, due to cost, is unable to continue midodrine. He has also tried to treat BP with use of amantadine with SE as well as Sudafed; he has since stopped both medications. Of note, he did have appointment with neurology outside [facility] earlier today with recommendations as reported above (note, these medications have been reviewed in the past after previous autonomic appt and amitriptyline has since been DC'd). Discussed that we can trial small decrease in gabapentin dose to determine if there is any affect on BP, however, must consider that head and neck pain may worsen with decrease in medication. He would like to attempt to decrease dose and will decrease to 600mg BID. New prescription written. In addition, discussed with autonomic clinic and will trial alternative medication if reduction of gabapentin does not lead to significant change in BP. Will begin pyridostigmine 60mg QHS with increase to BID after two weeks if tolerating. SE reviewed. I have requested that he begin pyridostigmine 1-2 weeks following reduction in gabapentin to assess for any changes with gabapentin reduction prior to starting new medication. Jenna Jim APRN.MIGEL I spent a total of 50+ minutes on the date of the service which included preparing to see the patient, [id number] patient care, completing clinical documentation, obtaining and/or reviewing separately obtained history, performing a medically appropriate examination, counseling and educating the patient/family/caregiver, ordering medications, tests, or procedures, and communicating with other HCPs (not separately reported). documented in this encounter [facility] 09-05-2022 Miscellaneous Notes Pt called and is notified of providers message and instructions. Pt voices understanding. Jennifer Blue RN Let patient know that he did chicken picker the pseudoephedrine 30 mg tabs and needs to take one three times a day as he was instructed to help raise his blood pressure. This medication causes constriction of blood vessels to raise the blood pressure and increased heart rate and will not cause dizziness of fatigue. Contacted pharmacy and they indicated that patient picked up the prescription 08/22. Alayna Urrutia MA Sowmya contact [facility] and see if patient picked up the script for the pseudoephedrine? Patient indicated that he never got the medication from the pharmacy only the Iron supplement. Please see attached note as to why he stopped. August 28 Jaspal SAHNI from [facility] calls to report that patient had taken pseudoephedrine and patient became dizzy, couldn't stand, and couldn't stay awake. Patient has not taken this medication anymore. Alayna Urrutia MA Please find out from patient if he is taking the pseudoephedrine 30 mg tabs three times a day that I sent in at the last appt on 08/21/2022 and is not why? With [facility] at [employer] this should of been less than $8. Pt calls and states the following: LOW BLOOD PRESSURE BLOOD PRESSURE: See below ONSETS: see below today 09-05-22 11:25 am 72/50 11:49 am 108/65 P 81 11:54 am 99/59 P 78 HOW: Arm cuff blood pressure machine HISTORY: This has been going on for a year MEDICATIONS: not taking any medications for blood pressure. Medications are to expensive. PULSE RATE: 81 at 11:49 am on 09-05-22, OTHER SYMPTOMS: none This is happening when he is walking around. Pt reports he gets light headed and will takes his BP and it is low and will sit down for a while to wait for it to come up. Pt reports a lot of times he will go to sleep because it makes him tired. 09-01-22 77/53 P81 84/51 P85 84/52 P 5 09-02-22 94/44 P73 81/49 P84 none 09-03-22 91/54 P75 112/56 P 81 86/51 P77 09-04-22 108/72 P71 56/39 P90 106/69 P75 Please advise pt. Selma Echevarria LPN documented in this encounter [facility] 12-30-2022 Miscellaneous Notes Patient has been identified by name and date of : Yes Requested Prescriptions Pending Prescriptions Disp Refills ferrous sulfate 325 mg (65 mg iron) tablet 60 tablet 1 Sig: Take 1 tablet by mouth twice daily with meals. RX INSTRUCTIONS: Patient aware RX will be sent to pharmacy. No need to notify patient. Alayna Urrutia MA Se[place]ity: 07/2022 Nov: 09/2022 Last refill: 06/2022 Patient has been identified by name and date of : Yes Last office visit in this department: 08/21/2022 RX INSTRUCTIONS: Patient aware RX will be sent to pharmacy. No need to notify patient. Patient phones requesting refills as follows: Requested Prescriptions Pending Prescriptions Disp Refills ferrous sulfate 325 mg (65 mg iron) tablet 60 tablet 1 Sig: Take 1 tablet by mouth twice daily with meals. Please review and advise. Liza Hood documented in this encounter [facility] 08-28-2022 Miscellaneous Notes Noted. Jaspal SAHNI from [facility] calls to report that patient had taken pseudoephedrine and patient became dizzy, couldn't stand, and couldn't stay awake. Patient has not taken this medication anymore. Patient also requested office visit notes to be faxed to [phone]. Faxed as requested. Beverly Rawls RN documented in this encounter [facility] 08-22-2022 Miscellaneous Notes Noted. Spoke with Michael and gave Dr. Grady recommendations. He said he would think about it and let us know. I patient I would send the name of the medication via [employer]. Alayna Urrutia MA Let Michael know I did some looking into alternate treatments for esophageal spasms. There is a med called hyoscyamine that he would take three times a day and it will not affect BP. If interested I will send in script to [facility]. documented in this encounter [facility] 08-22-2022 Miscellaneous Notes TC to patient, POA answered and took detailed message for patient. Verbalized understanding with no questions at this time. CALLIE Rodriguez Let patient know iron levels are better and hemoglobin is almost back to normal. Cont the iron medication. documented in this encounter [facility] 08-21-2022 Instructions Nadir Grady MD - 08/21/2022 9:49 AM EST Have Michael stop taking the Glimepiride 2 mg every day. Have him check his blood sugars every day fasting and 2 hrs after lunch as well as when his feel really dizzy. Please bring in readings at appt in 4 weeks. Goal for fasting blood sugars is to be below 120 and goal for 2 hrs after a meal is to be below 180. documented in this encounter [facility] 08-21-2022 History of Present illness Narrative Chief Complaint Patient presents with: Follow Up HPI Michael Bates is a 67 year old male who presents here today for medication follow up. Patient continues to have frequent episodes of dizziness and shaking. He has been working with cardio to try to figure out reasoning behind his low BP's which is most likely the source of his dizziness. Patient had to stop the midodrine since cost went over $100. He will be seeing Neurology in September in [place] for pal also. Patient's BS's have been running in the low 100's. Has had a few in the 70's but could not be specific as to where his sugars have been running and left his paper at home. He dose tend to notice the dizziness through out the day however sometimes worse in the morning. BP at home this morning was 83/61. Lump on left mid chest that is sore with arm movements. Past medical history, appointments, medications, allergies reviewed. Previous Medical History PAST MEDICAL HISTORY Diagnosis Date Acute right-sided low back pain with right-sided sciatica 07/09/2016 Adhesive capsulitis of shoulder 12/04/2007 Adjustment disorder with depressed mood 10/16/2006 Anemia of chronic disease 02/14/2021 Benign non-nodular prostatic hyperplasia without lower urinary tract symptoms 10/03/2016 Bilateral chronic knee pain 10/10/2016 Bilateral occipital neuralgia 08/04/2015 Carotid stenosis, asymptomatic, bilateral 08/09/2015 US 08/2015: bilateral 20-40%, US 06/2017 Rt; 40-60% and Lt 60-80% monitored by cardio Cervical spondylosis 01/20/2012 Cervicalgia 10/16/2006 Cervicogenic headache 10/16/2015 Chronic post-traumatic headache 08/04/[address] Duque Chronic sinusitis Claudication (HCC) 06/04/2017 PVR's normal. Coronary atherosclerosis due to lipid rich plaque 01/20/[address] Kren. s/p RODDY to Ramus and RODDY to LAD placed 01/20/2017. COVID-19 virus infection 06/18/202106/2021 DDD (degenerative disc disease), cervical 01/20/2012 DDD (degenerative disc disease), lumbar 06/30/2016 Multi level, worse L2-L3 Diabetes (HCC) Diabetic eye exam (HCC) 03/19/2017 Last done: 10/01/2018 Elevated LFTs 08/05/2015 Essential hypertension, benign GERD without esophagitis 06/12/2018 History of COVID-19 06/18/202106/2021 Illiteracy 10/09/2020 Leg pain, bilateral 06/04/2017 Lumbago 02/09/2010 * Dealing with on his own as of 08/2011 -- had a bad experience with a spine surgeon, nearly did surgery based on the wrong x-rays * Dates back to an injury while lifting 55 lbs Lumbar radiculopathy Migraine variant 07/22/2006 Since head injury around 1995 Mixed hyperlipidemia 08/04/2015 Neck pain, chronic 10/16/2015 Neuropathy 06/12/2018 Primary insomnia 03/02/2019 Radicular pain of right lower extremity 07/09/2016 S/P drug eluting coronary stent placement 01/20/201712/2016: 2 stents: Ramus of Circ and LAD S/P drug eluting coronary stent placement 01/20/201712/2016: 2 stents: Ramus of Circ and LAD, 05/10/20 RODDY to pLCx Sciatica 02/09/2010 Seborrheic dermatitis 08/04/2015 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, s/p repair Unspecified pruritic disorder 03/02/2009 Previous Surgical History PAST SURGICAL HISTORY Procedure Laterality Date 2D ECHO (EXEP) 01/16/2017 EF=60%, 1+ AK and TI CATARACT EXTRACTION HX Left 10/2019 CC CORONARY STENT 05/10/2020 RODDY to pLCx CC CORONARY STENT 12/2016 Ramus of Circ and LAD CC CORONARY STENT 11/20/2020 RODDY to pLCx and PTCA to OM2 CC CORONARY STENT 07/23/2021 PCI to prox Lt Circ in-stent restenosis then placement of RODDY FECAL OCCULT BLOOD TEST 04/19/2019 Negative PAST SURGICAL HISTORY OF 1971 appendix PAST SURGICAL HISTORY OF right foot -- tendon surgery PAST SURGICAL HISTORY OF 1999 +/- Right hand -- trauma, aneurysm repair/CTS release -- Dr. Llanes PAST SURGICAL HISTORY OF 2008 torn cartilage -- arthroscopy, left knee PAST SURGICAL HISTORY OF 2017 right hand ulnar artery aneurism repair. STRESS TEST 07/01/2018 negative STRESS TEST NUCLEAR 07/2019 negative Family History FAMILY HISTORY Problem Relation Age of Onset Lung Cancer Mother lung Coronary Artery Disease Sister former smoker Stroke Sister other (neurofibromatosis) Son from mother Patient Allergies ALLERGIES Allergen Reactions Florinef [Fludrocor* Angioedema Perfumes Other: See Comments sneezing Current Medications Current Outpatient Medications on File Prior to Visit Medication Sig gabapentin (NEURONTIN) 800 mg tablet Take 1 tablet by mouth twice daily for 90 days. ranolazine ER (RANEXA) 500 mg 12 hr tablet Take 1 tablet by mouth twice daily. Per cardio, Dr. Kern, not taking as of 06/28/2022 ferrous sulfate 325 mg (65 mg iron) tablet Take 1 tablet by mouth twice daily with meals. glimepiride (AMARYL) 2 mg tablet Take 1 tablet by mouth daily with breakfast. Blood-Glucose Meter monitoring kit Glucose Meter of Choice - Kit - Dx: Type 2 DM - Uncontrolled E11.65 Lancets lancets Test blood sugar(s) 2 times daily. Dx: Type 2 DM - Uncontrolled E11.65 Insulin: No blood sugar diagnostic (BLOOD GLUCOSE TEST) test strip Test blood sugar(s) 2 times daily. Dx: Type 2 DM - Uncontrolled E11.65 Insulin: No fluticasone (FLONASE) 50 mcg/actuation nasal spray INSTILL 2 SPRAYS IN EACH NOSTRIL ONCE DAILY pioglitazone (ACTOS) 30 mg tablet Take 1 tablet by mouth once daily. metFORMIN ER (GLUCOPHAGE XR) 500 mg 24 hr tablet Take 2 tablets by mouth twice daily. nitroglycerin sublingual (NITROSTAT) 0.4 mg SL tablet Dissolve 1 tablet under the tongue every 5 minutes as needed for chest pain. atorvastatin (LIPITOR) 80 mg tablet Take 1 tablet by mouth once daily. Managed by cardiology, Dr. Kern midodrine (PROAMATINE) 10 mg tablet Take 1 tablet by mouth three times daily. Per [facility] clopidogrel (PLAVIX) 75 mg tablet Take 1 tablet by mouth once daily. Managed by [facility] omega-3 fatty acids 1,000 mg cap Take 2 capsules by mouth once daily. aspirin, enteric coated (ECOTRIN LOW STRENGTH) 81 mg EC tablet Take 1 tablet by mouth once daily. Blood Pressure Monitor kit 1 Each once daily. Blood Glucose Control High and Low (ACCU-CHEK MGEHANA CONTROL SOLN) soln Use as directed as indicated to check quality of test strips No current facility-administered medications on file prior to visit. Social History Social History Tobacco Use Smoking status: Never Smokeless tobacco: Former Types: Chew Quit date: 07/02/2014 Tobacco comments: 1 can of chewing tobacco every 3 days PT QUIT 2014 Vaping Use Vaping Use: Never used Substance Use Topics Alcohol use: No Drug use: No Review of Symptoms REVIEW OF SYSTEMS See HPI EXAM: BP 128/74 (BP Site: Left Arm, BP Position: Sitting, BP Cuff Size: Regular Adult) Pulse 76 Resp 16 Wt 78 kg (172 lb) BMI 24.68 kg/m General Appearance: Well appearing, alert, in no acute distress, well-hydrated, well nourished.. Neck: Supple, no adenopathy; thyroid symmetric, normal size, no bruits. Lungs: Lungs clear to auscultation. No wheezing, rhonchi, rales.. Heart: RRR without murmur, gallop, or rubs. No ectopy. Abdomen: Normal abdominal exam, Abdomen soft, non-tender. Bowel sounds normal. No masses, organomegaly. Extremities: No deformities, edema, skin discoloration, Good capillary refill. . Skin: has multiple bruises on his front torso. Thinks it maybe from his cats when they walk on him. Musc: area of lump on chest is where a lower left rib meets the sternum. The rib feels slightly nodular from arthritis but no discreet mass. Health Maintenance List COVID-19 VACCINE(2 - Pfizer series) due on 09/06/2021 BP CONTROLLED (<130/80) due on 12/06/2021 DILATED RETINAL EXAM due on 01/09/2022 URINE ALBUMIN:CREATININE RATIO due on 11/02/2022 HBA1C due on 11/10/2022 LDL CHOLESTEROL due on 04/17/2023 DIABETIC FOOT EXAM due on 05/13/2023 ANNUAL PCP TEAM CHRONIC DISEASE VISIT due on 07/30/2023 DTAP,TDAP,TD(4 - Td or Tdap) due on 03/01/2031 INFLUENZA Completed ADVANCE DIRECTIVE DISCUSSION Completed DEPRESSION ASSESSMENT Completed HEPATITIS C SCREENING Completed SHINGRIX VACCINE Completed PNEUMOCOCCAL: 65+ Completed COLORECTAL CANCER SCREENING Discontinued Data reviewed A/P ASSESSMENT/PLAN: 1. Dizziness - ICD9: 780.4, ICD10: R42 (primary diagnosis) - not convinced this is related to low BS's but will have him hold his Amaryl and check BS's fasting and two hrs after lunch. 2. Tremor - ICD9: 781.0, ICD10: R25.1 - patient to see Neuro 3. Hypotension, unspecified hypotension type - ICD9: 458.9, ICD10: I95.9 - since not able to afford the midodrine will start pseudoephedrine 30 mg TID. 4. Panic disorder - ICD9: 300.01, ICD10: F41.0 - cont prn - LORAZEPAM 0.5 MG TABLET 5. Situational depression - ICD9: 309.0, ICD10: F43.21 - cont prn. - LORAZEPAM 0.5 MG TABLET: takes one every few weeks. PDMP website checked and validated. All prescriptions have been APPROPRIATELY filled. No suspicious activity was identified. 08/21/2022 by Nadir Grady MD 6. Atypical chest pain - ICD9: 786.59, ICD10: R07.89 - this could be esophageal spasm since seems to resolve with nitro and his cardiac w/u as been normal recently. Unfortunately can not trial trial of Cardizem or Imdur since he has these low BP's and frequent dizziness. Will reach out to patient to see if interested in trial of hyoscyamine. 7. Iron deficiency anemia, unspecified iron deficiency anemia type - ICD9: 280.9, ICD10: D50.9 check - IRON + TIBC - CBC + DIFF Requested Prescriptions Signed Prescriptions Disp Refills pseudoephedrine (SUDAFED) 30 mg tablet 120 tablet 5 Sig: Take 1 tablet by mouth three times daily. F/u 4 weeks and bring in BS log. I spent a total of 40 minutes on the date of the service which included preparing to see the patient, [id number] patient care, completing clinical documentation, performing a medically appropriate examination, counseling and educating the patient/family/caregiver and ordering medications, tests, or procedures. Nadir Grady MD documented in this encounter [facility] 08-07-2022 Miscellaneous Notes The following approved medication requests have been transmitted electronically. Requested Prescriptions Signed Prescriptions Disp Refills gabapentin (NEURONTIN) 800 mg tablet 180 tablet 0 Sig: Take 1 tablet by mouth twice daily for 90 days. Authorizing Provider: NADIR GRADY MD Patient last visit 07/30/22 Follow up appointment scheduled 08/21/22 Rosa Valentino Ma Patient has been identified by name and date of : Yes Requested Prescriptions Pending Prescriptions Disp Refills gabapentin (NEURONTIN) 800 mg tablet 180 tablet 0 Sig: Take 1 tablet by mouth twice daily for 90 days. RX INSTRUCTIONS: Patient aware RX will be sent to pharmacy. No need to notify patient. Veena Currie documented in this encounter [facility] 08-05-2022 Nurse Note AMBULATORY CYSTOSCOPY PROCEDURE PREOPERATIVE/PROCEDURAL VERIFICATION: Patient verified by: Name and Date of UNIVERSAL PROTOCOL / SAFETY CHECKLIST Procedure to be Performed: Cystoscopy Sign In: A Moment of CARE was completed. Personnel directly involved with the procedure wore the appropriate PPE (Personal Protective Equipment). No special equipment needed. Patient/Surrogate Stated/Verified: PATIENT VERIFIED(optional for EMERGENT procedures): Patient name, Date of , Relevant allergies, and The intended procedure Time Out Communication: Intended patient and procedure match the source documents. Consent documented and matches the intended procedure. No relevant labs, photos, and/or imaging studies were applicable for review. No correct side/site applicable for marking and visibility. Medications required for procedure verified. No fire risk assessment and interventions applicable. No implant(s) inserted. Sign Out: SIGN OUT (optional for EMERGENT procedures): All specimen containers correctly labeled. Keith Rawls Ma Medications and allergies reviewed and updated. Latex Allergy:No Pre-Procedure Antibiotics: Keflex 500 mg orally given during visit @ 13:00 pm , by Keith Rawls Ma Pre-Procedure Vital Signs: BP Blood pressure 159/79, pulse 73, resp. rate 18, height 177.8 cm (5' 10 ), weight 77.1 kg (170 lb). Current pain intensity is 0 on a scale of 0-10. Patient Prepped with Betadine Scrub to perineum and placement of sterile drape. Anesthetic Given: 10cc 2% Lidocaine Jelly into Urethra. Instruction sheet given and reviewed: Yes Patient verbalizes understanding: Yes Post- procedure Vital Signs: B/P: 178/88 P: 79 R:18 Pain Ratin on a scale of 0 to 10. Specimens: obtained: Urine Dip Result: Normal Nurse: Keith Rawls Ma documented in this encounter [facility] 08-05-2022 History of Present illness Narrative [facility] CYSTOSCOPY PROCEDURE NOTE: Michael Bates is a 67 year old male who presents with BPH for cystoscopy. Pt ID verified with patient: Yes Procedure verified with patient: Yes Procedure confirmed with physician and litigation support analyst: Yes UNIVERSAL PROTOCOL / SAFETY CHECKLIST Procedure to be Performed: Cystoscopy Sign In: A Moment of CARE was completed. Personnel directly involved with the procedure wore the appropriate PPE (Personal Protective Equipment). Patient/Surrogate Stated/Verified: PATIENT VERIFIED(optional for EMERGENT procedures): Patient name, Date of , Relevant allergies, and The intended procedure Time Out Communication: Intended patient and procedure match the source documents. Consent documented and matches the intended procedure. Sign Out: SIGN OUT (optional for EMERGENT procedures): No specimen collected. Mike Lucero MD A urinalysis was performed revealing no evidence of infection. The benefits, risks, alternatives of the cystoscopy procedure and personnel were discussed with the patient. The verbal consent was obtained and the patient agrees to proceed. Procedure: The patient was placed on the procedure table in the supine position and prepped and draped in the usual sterile fashion. 2% Lidocaine Jelly was placed per urethra as an anesthetic in the standard fashion. Once adequate local anesthesia was achieved, the tip of the flexible cystoscope was carefully placed into the urethra under direct visual guidance. The scope was negotiated through the pendulous urethra to the level of the bulbar urethra with no evidence of stricture. The verumontanum came into view and the scope was negotiated through the prostatic urethra which showed evidence of bi lobar occlusive disease. The bladder was entered and careful roche endoscopy was carried out. The posterior, superior and lateral dennis and dome of the bladder were all well visualized and the scope was retroflexed upon itself. The findings were consistent with no evidence of bladder mucosal pathology. At the conclusion of the procedure, the flexible cystoscope was removed atraumatically. The patient tolerated the procedure without complications. Patient was given standard post-procedure instructions, and was directed to complete the course of oral antibiotics and increase oral fluid intake as directed. (N42.9) Disorder of prostate (primary encounter diagnosis) Plan: cephALEXin 500 mg cap(s) (KEFLEX), lidocaine 2 % topical gel (XYLOCAINE) ASSESSMENT/PLAN: CT reviewed - Bladder wall thickening PSA 2.51 Cysto - Bilobar hypertrophy Some weak stream, discussed medical tx, pt would like to observe F/u PRN Mike Lucero MD documented in this encounter [facility] 07-30-2022 History of Present illness Narrative Chief Complaint Coldness in chest HPI Michael Bates is a 67 year old male who presents here today for Above Complaints.. Patient reports feeling coldness in chest. Patient states it is intermittent and has been happening for years. Patient reports nothing makes it better or worse and that it happens randomly and suddenly like someone dropped a block of ice on his chest and the skin is cold to touch. Patient states nothing helps despite layering clothes and that it is so bothersome he cant sleep. Patient reports that it occurs in his anterior chest from nipple to nipple. Denies fever, shortness of breath, chest pain, cough, indigestion. Patient reports he has a loop recorder implanted and 5 cardiac stents. Patient reports he also has chest pain which has been evaluated by cardiology but has not received any explanation. Past medical history, appointments, medications, allergies reviewed. Previous Medical History PAST MEDICAL HISTORY Diagnosis Date Acute right-sided low back pain with right-sided sciatica 07/09/2016 Adhesive capsulitis of shoulder 12/04/2007 Adjustment disorder with depressed mood 10/16/2006 Anemia of chronic disease 02/14/2021 Benign non-nodular prostatic hyperplasia without lower urinary tract symptoms 10/03/2016 Bilateral chronic knee pain 10/10/2016 Bilateral occipital neuralgia 08/04/2015 Carotid stenosis, asymptomatic, bilateral 08/09/2015 US 08/2015: bilateral 20-40%, US 06/2017 Rt; 40-60% and Lt 60-80% monitored by cardio Cervical spondylosis 01/20/2012 Cervicalgia 10/16/2006 Cervicogenic headache 10/16/2015 Chronic post-traumatic headache 08/04/[address] Freedman Chronic sinusitis Claudication (HCC) 06/04/2017 PVR's normal. Coronary atherosclerosis due to lipid rich plaque 01/20/[address] Kern. s/p RODDY to Ramus and RODDY to LAD placed 01/20/2017. COVID-19 virus infection 06/18/202106/2021 DDD (degenerative disc disease), cervical 01/20/2012 DDD (degenerative disc disease), lumbar 06/30/2016 Multi level, worse L2-L3 Diabetes (HCC) Diabetic eye exam ([facility]) 03/19/2017 Last done: 10/01/2018 Elevated LFTs 08/05/2015 Essential hypertension, benign GERD without esophagitis 06/12/2018 History of COVID-19 06/18/202106/2021 Illiteracy 10/09/2020 Leg pain, bilateral 06/04/2017 Lumbago 02/09/2010 * Dealing with on his own as of 08/2011 -- had a bad experience with a spine surgeon, nearly did surgery based on the wrong x-rays * Dates back to an injury while lifting 55 lbs Lumbar radiculopathy Migraine variant 07/22/2006 Since head injury around 1995 Mixed hyperlipidemia 08/04/2015 Neck pain, chronic 10/16/2015 Neuropathy 06/12/2018 Primary insomnia 03/02/2019 Radicular pain of right lower extremity 07/09/2016 S/P drug eluting coronary stent placement 01/20/201712/2016: 2 stents: Ramus of Circ and LAD S/P drug eluting coronary stent placement 01/20/201712/2016: 2 stents: Ramus of Circ and LAD, 05/10/20 RODDY to pLCx Sciatica 02/09/2010 Seborrheic dermatitis 08/04/2015 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, s/p repair Unspecified pruritic disorder 03/02/2009 Previous Surgical History PAST SURGICAL HISTORY Procedure Laterality Date 2D ECHO (EXEP) 01/16/2017 EF=60%, 1+ AK and TI CATARACT EXTRACTION HX Left 10/2019 CC CORONARY STENT 05/10/2020 RODDY to pLCx CC CORONARY STENT 12/2016 Ramus of Circ and LAD CC CORONARY STENT 11/20/2020 RODDY to pLCx and PTCA to OM2 CC CORONARY STENT 07/23/2021 PCI to prox Lt Circ in-stent restenosis then placement of RODDY FECAL OCCULT BLOOD TEST 04/19/2019 Negative PAST SURGICAL HISTORY OF 1971 appendix PAST SURGICAL HISTORY OF right foot -- tendon surgery PAST SURGICAL HISTORY OF 1999 +/- Right hand -- trauma, aneurysm repair/CTS release -- Dr. Llanes PAST SURGICAL HISTORY OF 2008 torn cartilage -- arthroscopy, left knee PAST SURGICAL HISTORY OF 2017 right hand ulnar artery aneurism repair. STRESS TEST 07/01/2018 negative STRESS TEST NUCLEAR 07/2019 negative Family History FAMILY HISTORY Problem Relation Age of Onset Lung Cancer Mother lung Coronary Artery Disease Sister former smoker Stroke Sister other (neurofibromatosis) Son from mother Patient Allergies ALLERGIES Allergen Reactions Florinef [Fludrocor* Angioedema Perfumes Other: See Comments sneezing Current Medications Current Outpatient Medications on File Prior to Visit Medication Sig ranolazine ER (RANEXA) 500 mg 12 hr tablet Take 1 tablet by mouth twice daily. Per cardio, Dr. Kern, not taking as of 06/28/2022 LORazepam (ATIVAN) 0.5 mg Take 1 tablet by mouth twice daily as needed (anxiety) for up to 30 days. ferrous sulfate 325 mg (65 mg iron) tablet Take 1 tablet by mouth twice daily with meals. glimepiride (AMARYL) 2 mg tablet Take 1 tablet by mouth daily with breakfast. Blood-Glucose Meter monitoring kit Glucose Meter of Choice - Kit - Dx: Type 2 DM - Uncontrolled E11.65 Lancets lancets Test blood sugar(s) 2 times daily. Dx: Type 2 DM - Uncontrolled E11.65 Insulin: No blood sugar diagnostic (BLOOD GLUCOSE TEST) test strip Test blood sugar(s) 2 times daily. Dx: Type 2 DM - Uncontrolled E11.65 Insulin: No fluticasone (FLONASE) 50 mcg/actuation nasal spray INSTILL 2 SPRAYS IN EACH NOSTRIL ONCE DAILY pioglitazone (ACTOS) 30 mg tablet Take 1 tablet by mouth once daily. metFORMIN ER (GLUCOPHAGE XR) 500 mg 24 hr tablet Take 2 tablets by mouth twice daily. gabapentin (NEURONTIN) 800 mg tablet Take 1 tablet by mouth twice daily for 90 days. sertraline (ZOLOFT) 50 mg tablet Take 1 tablet by mouth once daily. (Patient not taking: Reported on 06/27/2022) nitroglycerin sublingual (NITROSTAT) 0.4 mg SL tablet Dissolve 1 tablet under the tongue every 5 minutes as needed for chest pain. atorvastatin (LIPITOR) 80 mg tablet Take 1 tablet by mouth once daily. Managed by cardiology, Dr. Kern midjadarine (PROAMATINE) 10 mg tablet Take 1 tablet by mouth three times daily. Per [facility] clopidogrel (PLAVIX) 75 mg tablet Take 1 tablet by mouth once daily. Managed by [facility] omega-3 fatty acids 1,000 mg cap Take 2 capsules by mouth once daily. aspirin, enteric coated (ECOTRIN LOW STRENGTH) 81 mg EC tablet Take 1 tablet by mouth once daily. Blood Pressure Monitor kit 1 Each once daily. Blood Glucose Control High and Low (ACCU-CHEK MEGHANA CONTROL SOLN) soln Use as directed as indicated to check quality of test strips No current facility-administered medications on file prior to visit. Social History Social History Tobacco Use Smoking status: Never Smokeless tobacco: Former Types: Chew Quit date: 07/02/2014 Tobacco comments: 1 can of chewing tobacco every 3 days PT QUIT 2014 Vaping Use Vaping Use: Never used Substance Use Topics Alcohol use: No Drug use: No Review of Symptoms REVIEW OF SYSTEMS SEE HPI EXAM: BP 136/70 Pulse 78 Resp 16 Wt 77.1 kg (170 lb) BMI 24.39 kg/m General Appearance: Well appearing, alert, in no acute distress, well-hydrated, well nourished.. Lungs: Lungs clear to auscultation. No wheezing, rhonchi, rales.. Heart: RRR without murmur, gallop, or rubs. No ectopy. Breast: Inspection negative. No nipple discharge or bleeding. No palpable mass and No skin changes or dimpling. Peripheral Pulses: Normal. Health Maintenance List COVID-19 VACCINE(2 - Pfizer series) due on 09/06/2021 DILATED RETINAL EXAM due on 01/09/2022 URINE ALBUMIN:CREATININE RATIO due on 11/02/2022 HBA1C due on 11/10/2022 LDL CHOLESTEROL due on 04/17/2023 DIABETIC FOOT EXAM due on 05/13/2023 ANNUAL PCP TEAM CHRONIC DISEASE VISIT due on 06/25/2023 BP CONTROLLED (<130/80) due on 06/27/2023 DTAP,TDAP,TD(4 - Td or Tdap) due on 03/01/2031 INFLUENZA Completed ADVANCE DIRECTIVE DISCUSSION Completed DEPRESSION ASSESSMENT Completed HEPATITIS C SCREENING Completed SHINGRIX VACCINE Completed PNEUMOCOCCAL: 65+ Completed COLORECTAL CANCER SCREENING Discontinued ASSESSMENT/PLAN: 1. Type 2 diabetes mellitus with diabetic neuropathy, without long-term current use of insulin (HCC) - ICD9: 250.60, 357.2, ICD10: E11.40 Controlled. - Continue current medications - Referral to Neurology for opinion on neuropathic pain sensations in chest and head. - BP goal of <130/80 - CONSULT TO NEUROLOGY Gamal Mathis APRN.MIGEL documented in this encounter [facility] 07-29-2022 Miscellaneous Notes Patient rescheduled. Alayna Urrutia MA Pt's POA Frida called in for an appt. Frida had hung up phone while appt was being scheduled with Gamal Mathis CNP for 07/30 @ 9:00 am. Appt was taken by another [employer] blind worker. Message left on Frida's vm to call back to reschedule appt. Aaliyah Horner LPN documented in this encounter [facility] 07-12-2022 Miscellaneous Notes Called patient's POA and she confirmed the appointment on 08/05 documented in this encounter [facility] 07-11-2022 Miscellaneous Notes Patient notified and voiced understanding. Alayna Urrutia MA Let patient know that his renal function is normal. Okay to restart metformin. Also his iron levels and blood counts are improving. Continue the iron supplement. Martha Boston PA-C documented in this encounter [facility] 07-10-2022 Miscellaneous Notes Noted. agree Martha, please see below FYI. Yamile Burns LPN Spoke with Branden Vick's nurse about scheduling the patient for a consultation. She reported the patient will need to speak with an MD in urology for the procedure that he is being referred for. I relayed the information to the patient's POA. I attempted to contact [facility] but had to leave a VM of the patient's information and request for appointment. The patient's POA understood that a VM had been left and that [facility] scheduling will reach out. She was provided the phone number to [facility]. documented in this encounter [facility] 07-10-2022 Miscellaneous Notes Patient notified of results and provider's instructions. Patient verbalizes understanding. Also called EC Frida per pt's request to review results and instructions. Pt had wanted her to schedule Urology appointment for him. Reviewed results and instructions with Frida, she verbalizes understanding. She was transferred to schedule Urology appointment. Copy of CT scan faxed with FYI to [facility]. Yamile Burns LPN Let patient know that CT abd scan shows mild bladder wall thickening which is of uncertain nature and I would like him to see urology for this. CT shows coronary artery calcifications. Will just forward result to his cardiology ([facility]) as a FYI only. Given that he recently had a heart cath, not much more that they will likely recommend. Martha Boston, PA-C documented in this encounter [facility] 07-09-2022 History of Present illness Narrative Radiology Service Progress Note DATE OF SERVICE: July 09, 2022 TIME: 12:12 PM PATIENT IDENTITY VERIFICATION COMPLETED USING TWO (2) STANDARD IDENTIFIERS: Name and Date of confirmed by patient verbally. FALL SCREENING: Has the patient had 2 falls in the last year or 1 fall with injury or currently using an Ambulatory Assistive Device (Walker, Cane, Wheelchair, Crutches, etc.)? No PATIENT GENDER DATA: Male PATIENT RELEVANT IMPLANT DATA REVIEWED: Yes ALLERGIES: Reviewed and unchanged CONTRAST ALLERGY: NO. EXAM: CT -CONTRAST INDUCED NEPHROPATHY RISK FACTORS: Patient age > 60 years CREATININE: Creatinine Date Value Ref Range Status 06/25/2022 0.71 (L) 0.73 - 1.22 mg/dL Final 05/13/2022 0.84 0.73 - 1.22 mg/dL Final 04/05/2022 0.81 0.50 - 1.40 mg/dL Final Comment: Patients receiving either N-Acetylcysteine (NAC) or Metamizole prior to venipuncture, may have falsely depressed results. Estimated Glomerular Filtration Rate Date Value Ref Range Status 06/25/2022 99 >=60 mL/min/1.73m Final Comment: Estimated Glomerular Filtration Rate (eGFR) is calculated using the 2020 CKD-EPI creatinine equation. This equation utilizes serum creatinine, sex, and age as parameters. The creatinine assay has traceable calibration to isotope dilution-mass spectrometry. Refer to KDIGO guidelines for clinical interpretation. In patients with unstable renal function, e.g. those with acute kidney injury, the eGFR may not accurately reflect actual GFR. eGFR- Date Value Ref Range Status 06/28/2021 >60 Final P.O.C.T. RESULTS: POC done: Yes, See Lab Tab July 09, 2022 TREATMENT: N/A PERIPHERAL IV DATA: Ambulatory: A peripheral IV was started in the Left antecubital site with a Angio cath: 22 gauge. RADIOLOGY DEPARTMENT: CT; Exam(s) Completed: Chest Abdomen Pelvis SIGNATURE: RT Lucretia(R) PATIENT NAME: Michael Bates DATE: July 09, 2022 TIME: 12:12 PM documented in this encounter [facility] 07-05-2022 Miscellaneous Notes Spoke with pt and reviewed Martha's message. Pt verbalizes understanding. Yamile Burns LPN Let patient know that this was prescribed for short term use only. I did not have plans to keep him on this daily or mcfp. This was discussed with him. I will give him one more refill and if he feels he needs to stay on it longer, he will need to have another visit to discuss this. Martha Boston PA-C Patient has been identified by name and date of : Yes Requested Prescriptions Pending Prescriptions Disp Refills LORazepam (ATIVAN) 0.5 mg 15 tablet 0 Sig: Take 1 tablet by mouth twice daily as needed (anxiety) for up to 30 days. RX INSTRUCTIONS: Patient aware RX will be sent to pharmacy. No need to notify patient. Alayna Urrutia MA Serenity: 05/2022 Nov: 10/2022 Last refill: 05/2022 documented in this encounter [facility] 07-02-2022 Miscellaneous Notes Called pt and reviewed Martha's result note and instructions. Pt verbalizes understanding. Advised pt would call Frida to update her as well. Pt was transferred to schedule CT scan. Reviewed Martha's message and instructions with frida, she verbalizes understanding. Also sent copy of message via My Chart so Frida will have for reference. Yamile Burns LPN Let patient know that US shows fatty liver and some sludge in Gallbladder. But I don't feel this would be cause of weight loss. His CXR was also normal. I see he is scheduled for EGD and colonoscopy, but I would like to also get a CT chest and CT abd to further assess the weight loss. Orders placed. [address], he needs to stop his metformin. Come in for lab the day after CT scan to check his creatinine level. As long as that is normal, we will restart metformin. Martha Boston PA-C documented in this encounter [facility] 07-02-2022 History of Present illness Narrative HISTORY AND PHYSICAL Michael Bates 1955 REFERRING PHYSICIAN: Martha Boston PA-C CHIEF COMPLAINT: Consult (Colonoscopy, anemia, no prior colonoscopy) HPI: The patient is a 67 year old male referred for endoscopy. Michael notes no current colon complaints The patient notes reflux. He denies black tarry stools, hemorrhoids, rectal bleeding, constipation or diarrhea. He denies loss of stool control. He has note that he is losing weight. He states he feels weaker. He lost 20 pounds in 2 months. Laboratory studies were obtained which demonstrated a hemoglobin of 9.8 down from 11.92 months previously. Iron levels were low. The patient is being seen by me today at the request of Martha Boston PA-C my opinion and advice regarding anemia and weight loss. PAST MEDICAL HISTORY Diagnosis Date Acute right-sided low back pain with right-sided sciatica 07/09/2016 Adhesive capsulitis of shoulder 12/04/2007 Adjustment disorder with depressed mood 10/16/2006 Anemia of chronic disease 02/14/2021 Benign non-nodular prostatic hyperplasia without lower urinary tract symptoms 10/03/2016 Bilateral chronic knee pain 10/10/2016 Bilateral occipital neuralgia 08/04/2015 Carotid stenosis, asymptomatic, bilateral 08/09/2015 US 08/2015: bilateral 20-40%, US 06/2017 Rt; 40-60% and Lt 60-80% monitored by cardio Cervical spondylosis 01/20/2012 Cervicalgia 10/16/2006 Cervicogenic headache 10/16/2015 Chronic post-traumatic headache 08/04/[address] Duque Chronic sinusitis Claudication (HCC) 06/04/2017 PVR's normal. Coronary atherosclerosis due to lipid rich plaque 01/20/[address] Kern. s/p RODDY to Ramus and RODDY to LAD placed 01/20/2017. COVID-19 virus infection 06/18/202106/2021 DDD (degenerative disc disease), cervical 01/20/2012 DDD (degenerative disc disease), lumbar 06/30/2016 Multi level, worse L2-L3 Diabetes (HCC) Diabetic eye exam ([facility]) 03/19/2017 Last done: 10/01/2018 Elevated LFTs 08/05/2015 Essential hypertension, benign GERD without esophagitis 06/12/2018 History of COVID-19 06/18/202106/2021 Illiteracy 10/09/2020 Leg pain, bilateral 06/04/2017 Lumbago 02/09/2010 * Dealing with on his own as of 08/2011 -- had a bad experience with a spine surgeon, nearly did surgery based on the wrong x-rays * Dates back to an injury while lifting 55 lbs Lumbar radiculopathy Migraine variant 07/22/2006 Since head injury around 1995 Mixed hyperlipidemia 08/04/2015 Neck pain, chronic 10/16/2015 Neuropathy 06/12/2018 Primary insomnia 03/02/2019 Radicular pain of right lower extremity 07/09/2016 S/P drug eluting coronary stent placement 01/20/201712/2016: 2 stents: Ramus of Circ and LAD S/P drug eluting coronary stent placement 01/20/201712/2016: 2 stents: Ramus of Circ and LAD, 05/10/20 RODDY to pLCx Sciatica 02/09/2010 Seborrheic dermatitis 08/04/2015 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, s/p repair Unspecified pruritic disorder 03/02/2009 PAST SURGICAL HISTORY Procedure Laterality Date 2D ECHO (EXEP) 01/16/2017 EF=60%, 1+ AK and TI CATARACT EXTRACTION HX Left 10/2019 CC CORONARY STENT 05/10/2020 RODDY to pLCx CC CORONARY STENT 12/2016 Ramus of Circ and LAD CC CORONARY STENT 11/20/2020 RODDY to pLCx and PTCA to OM2 CC CORONARY STENT 07/23/2021 PCI to prox Lt Circ in-stent restenosis then placement of RODDY FECAL OCCULT BLOOD TEST 04/19/2019 Negative PAST SURGICAL HISTORY OF 1971 appendix PAST SURGICAL HISTORY OF right foot -- tendon surgery PAST SURGICAL HISTORY OF 1999 +/- Right hand -- trauma, aneurysm repair/CTS release -- Dr. Llanes PAST SURGICAL HISTORY OF 2008 torn cartilage -- arthroscopy, left knee PAST SURGICAL HISTORY OF 2017 right hand ulnar artery aneurism repair. STRESS TEST 07/01/2018 negative STRESS TEST NUCLEAR 07/2019 negative Current Outpatient Medications Medication Sig ferrous sulfate 325 mg (65 mg iron) tablet Take 1 tablet by mouth twice daily with meals. glimepiride (AMARYL) 2 mg tablet Take 1 tablet by mouth daily with breakfast. Blood-Glucose Meter monitoring kit Glucose Meter of Choice - Kit - Dx: Type 2 DM - Uncontrolled E11.65 Lancets lancets Test blood sugar(s) 2 times daily. Dx: Type 2 DM - Uncontrolled E11.65 Insulin: No blood sugar diagnostic (BLOOD GLUCOSE TEST) test strip Test blood sugar(s) 2 times daily. Dx: Type 2 DM - Uncontrolled E11.65 Insulin: No fluticasone (FLONASE) 50 mcg/actuation nasal spray INSTILL 2 SPRAYS IN EACH NOSTRIL ONCE DAILY pioglitazone (ACTOS) 30 mg tablet Take 1 tablet by mouth once daily. metFORMIN ER (GLUCOPHAGE XR) 500 mg 24 hr tablet Take 2 tablets by mouth twice daily. gabapentin (NEURONTIN) 800 mg tablet Take 1 tablet by mouth twice daily for 90 days. predniSONE (DELTASONE) 20 mg tablet One daily per cardio, Dr. kern ranolazine ER (RANEXA) 500 mg 12 hr tablet Take 1 tablet by mouth twice daily. Per cardio, Dr. Kern nitroglycerin sublingual (NITROSTAT) 0.4 mg SL tablet Dissolve 1 tablet under the tongue every 5 minutes as needed for chest pain. atorvastatin (LIPITOR) 80 mg tablet Take 1 tablet by mouth once daily. Managed by cardiology, Dr. Kern midodrine (PROAMATINE) 10 mg tablet Take 1 tablet by mouth three times daily. Per [facility] clopidogrel (PLAVIX) 75 mg tablet Take 1 tablet by mouth once daily. Managed by [facility] omega-3 fatty acids 1,000 mg cap Take 2 capsules by mouth once daily. aspirin, enteric coated (ECOTRIN LOW STRENGTH) 81 mg EC tablet Take 1 tablet by mouth once daily. Blood Pressure Monitor kit 1 Each once daily. Blood Glucose Control High and Low (ACCU-CHEK MEGHANA CONTROL SOLN) soln Use as directed as indicated to check quality of test strips sertraline (ZOLOFT) 50 mg tablet Take 1 tablet by mouth once daily. (Patient not taking: Reported on 06/27/2022) amantadine HCl (SYMMETREL) 100 mg capsule Take 1 capsule by mouth twice daily. (Patient not taking: Reported on 06/27/2022) No current facility-administered medications for this visit. ALLERGIES: Florinef [Fludrocortisone] and Perfumes PERSONAL HISTORY: Social History Tobacco Use Smoking status: Never Smokeless tobacco: Former Types: Chew Quit date: 07/02/2014 Tobacco comments: 1 can of chewing tobacco every 3 days PT QUIT 2014 Vaping Use Vaping Use: Never used Substance Use Topics Alcohol use: No Drug use: No FAMILY HISTORY: FAMILY HISTORY Problem Relation Age of Onset Lung Cancer Mother lung Coronary Artery Disease Sister former smoker Stroke Sister other (neurofibromatosis) Son from mother REVIEW OF SYMPTOMS: The review of systems data was entered by the nurse and reviewed by nd Nursing Notes: Shiela Thacker LPN 06/27/2022 9:31 AM Signed REVIEW OF SYSTEMS: General: The patient notes fatigue, notes weight loss, denies weight gain, denies feeling hot, and notes feelings of cold. Eyes: The patient denies glaucoma, notes eye injury/surgery, does not wear glasses or contacts. Ear/Nose/Throat: The patient notes allergies, denies hayfever, denies ear infections, and denies bloody noses. Cardiovascular: The patient notes chest pain, notes heart disease, notes high blood pressure,notes cardiac stent, denies prior heart attack, denies irregular heart beat, notes high cholesterol, denies poor circulation, denies heart failure, other cardiac issues, notes claudication, denies cold feet, denies peripheral arterial stent. Respiratory: The patient denies tuberculosis, denies pneumonia, denies frequent cough, denies pulmonary embolism, denies shortness of breath, and denies coughing up blood. Gastrointestinal: The patient denies difficulty swallowing, notes acid reflux, denies ulcers, denies vomiting, denies jaundice/hepatitis, denies gallbladder problems, denies black or tarry stools, denies hemorrhoids, denies bleeding from rectum, denies diverticulitis, denies constipation, denies diarrhea, denies loss of stool control, and denies hernias. Kidney/Bladder: The patient denies kidney stones, denies urine infections, and denies bloody urine. Skin: The patient denies a history of skin cancer, denies bleeding/changing moles, and denies a history of skin rash. Neurologic: The patient denies a history of epilepsy/convulsions, notes headaches, denies head/spinal injuries, and denies stroke/TIA. Psychiatric: The patient denies psychiatric medications, denies depression, and denies voices, denies substance abuse. Endocrine: The patient denies thyroid disorders, notes diabetes, and denies hormonal problems. Hematologic: The patient notes a history of bruising, denies bleeding, and notes anemia, denies blood clots. Infections: The patient notes a history of measles and mumps, denies rheumatic fever, and denies sexually transmitted diseases. Musculoskeletal: The patient notes back pain/injury, denies back problems, denies sciatica, denies knee/foot trouble, notes arthritis, or denies gout. When was patient's last Mammogram screening? N/A Last Colonoscopy: none Shiela Thacker LPN PHYSICAL EXAMINATION: General: The patient is 67 year old male, well nourished, well hydrated in no acute distress. The patient is oriented to time, place, and person. VITALS: Blood pressure 110/62, pulse 80, temperature 36.3 C (97.4 F), height 177.8 cm (5' 10 ), weight 71.7 kg (158 lb), SpO2 97 %. Body mass index is 22.67 kg/m . HEENT: Normal cephalic, ataumatic, pupils are equally round, sclera are anicteric, mucous membranes are moist, oropharynx is clear. Neck has no masses, asymmetry or lymphadenopathy. Thyroid is unremarkable. Respiratory: Clear to auscultation and percussion. Normal respiratory excursion and pattern. Cardiac: Examination is regular rate and rhythm. Abdominal exam: Soft, nontender, with no palpable masses. No hepatosplenomegaly. No palpable hernias. Rectal exam: exam deferred Extremities: no clubbing, cyanosis or edema. No adenopathy. Other: LABORATORY VALUES: As Noted RADIOLOGIC STUDIES: As Noted Assessment IMPRESSION: Anemia and weight loss PLAN: I plan to perform upper and lower endoscopy. We discussed the risks and benefits of the planned endoscopy. I have informed the patient that complications can occur including failure to complete the endoscopy and perforation. The patient had the opportunity to ask questions concerning the planned endoscopy. My staff has also explained the procedure to the patient in understandable terms and has given the patient printed material concerning the procedure. The patient freely consents to surgery. I plan to use golytely bowel preparation for endoscopy I plan for monitored anesthetic care. Diagnoses: (D64.9) Anemia, unspecified type My findings have been communicated to Boston via shared medical record. This note will be forwarded to Nadir Grady MD. Return to Clinic: The patient is instructed to follow-up with me after the testing has been completed. Thai Santiago MD documented in this encounter [facility] 07-01-2022 History of Present illness Narrative Radiology Service Progress Note PATIENT NAME: Michael Bates DATE OF SERVICE: July 01, 2022 TIME: 9:02 AM PATIENT IDENTITY VERIFICATION COMPLETED USING TWO (2) IDENTIFIERS: Name and Date of confirmed by patient verbally. FALL SCREENING: Has the patient had 2 falls in the last year or 1 fall with injury or currently using an Ambulatory Assistive Device (Walker, Cane, Wheelchair, Crutches, etc.)? No PATIENT GENDER DATA: Male PATIENT RELEVANT IMPLANT DATA REVIEWED: Not Applicable RADIOLOGY DEPARTMENT: Ultrasound PERIPHERAL IV DATA: Not applicable SIGNED BY: Karin Hamilton RDMS RVT July 01, 2022 9:02 AM documented in this encounter [facility] 06-27-2022 Miscellaneous Notes Spoke with pt and advised of Martha's message and instructions. Pt verbalizes understanding. Pt also aware this nurse had given this message to Frida as well. Yamile Burns LPN Advised pt's [id number] Frida of Martha's message and instructions. She verbalizes understanding. She advises pt is at appointment with Dr Santiago and to try calling pt on his cell number a little later to advise him of this message as well. She advises if can't reach pt to leave message on vm and let pt know that office also spoke with Frida. Will try to contact pt via cell a little bit later today. Yamile Burns LPN Let patient know that his iron level is low. Will want him to start iron supplement, I will send this in. Repeat labs in 1 month. Martha Boston PA-C documented in this encounter [facility] 06-27-2022 Instructions Thai Santiago MD - 06/27/2022 11:08 AM EDT Images from the original note were not included. Bowel Preparation Instructions for: Golytely, Nulytely, Trilyte or Colyte (polyethylene glycol 3350 and electrolytes) IF YOU DO NOT FOLLOW THESE DIRECTIONS, YOUR COLONOSCOPY WILL BE CANCELLED. [place] Instructions: Your bowel must be empty so that your doctor can clearly view your colon. Follow all of the instructions in this handout EXACTLY as they are written. Do NOT eat any solid food the ENTIRE day before your colonoscopy. Drink only clear liquids. Buy your bowel preparation at least 5 days before your colonoscopy. TRANSPORTATION on the Day of Your Exam A responsible person MUST be present with you at Check In prior to your colonoscopy and REMAIN in the endoscopy area until you are discharged. You are NOT ALLOWED to drive, take a taxi or bus, or leave the Endoscopy Center ALONE. If you do not have a responsible commercial collections driver (family member or friend) with you to take you home, your exam cannot be done with sedation and will be cancelled. Please bring a list of all of your current medications, including any Over-the Counter medications with you. Medications If you take insulin, diabetic medications or blood thinners such as Coumadin (warfarin), Plavix (clopidogrel), Ticlid (ticlopidine hydrochloride), Agrylin (anagrelide), Xarelto (Rivaroxaban), Pradaxa (Dabigatran), Eliquis (Apixaban), and Effient (Prasugrel). You MUST call the doctors who orders those medicines for instructions on altering the dosage before your colonoscopy. All other medications should be taken the day of the exam with a sip of water including ASPIRIN. Five (5) Days Before Your Colonoscopy Do NOT take medicines that stop diarrhea - such as Imodium, Kaopectate, or Pepto Bismol. Do NOT take fiber supplements - such as Metamucil, Citrucel, or Perdiem. Do NOT take products that contain iron - such as multi-vitamins (the label lists what is in the products). Do NOT take Vitamin E. Buy the prescription bowel preparation solution at your local pharmacy or drugstore pharmacy. 08/2019 Bowel Preparation Instructions for: Golytely, Nulytely, Trilyte or Colyte (polyethylene glycol 3350 and electrolytes) Three (3) Days Before Your Colonoscopy Do NOT eat high-fiber foods - such as popcorn, beans, seeds (flax, sunflower, quinoa), multigrain bread, nuts, salad/vegetables, or fresh and dried fruit. One (1) Day Before Your Colonoscopy Only drink clear liquids the ENTIRE DAY before your colonoscopy. Do NOT eat any solid foods. Drink at least 8 ounces of clear liquids every hour after waking up. The clear liquids you can drink include: Clear Liquid (NO RED LIQUIDS) DO NOT DRINK Gatorade, Pedialyte or Powerade Clear broth or bouillon Coffee or tea (no milk or non-dairy creamer) Carbonated and non-carbonated soft drinks Gurpreet-Aid or other fruit flavored drinks Strained fruit juices (no pulp) Jell-O, popsicles, hard candy Water Alcohol Milk or non-dairy creamers Noodles or vegetables in soup Juice with pulp Liquid you cannot see through Do not use tobacco/vaping products The bowel preparation solution will be consumed in two parts. Mix the solution the evening before your colonoscopy and refrigerate before drinking. You may add the flavor pack that came with the bowel preparation. Do NOT add ice, sugar or any other flavorings to the solution. Part 1 At 6:00 PM - Evening before your colonoscopy Drink an 8-oz glass of bowel preparation every 10 minutes until clear You may continue to drink clear liquids until midnight. 2 08/2019 documented in this encounter [facility] 06-27-2022 Nurse Note REVIEW OF SYSTEMS: General: The patient notes fatigue, notes weight loss, denies weight gain, denies feeling hot, and notes feelings of cold. Eyes: The patient denies glaucoma, notes eye injury/surgery, does not wear glasses or contacts. Ear/Nose/Throat: The patient notes allergies, denies hayfever, denies ear infections, and denies bloody noses. Cardiovascular: The patient notes chest pain, notes heart disease, notes high blood pressure,notes cardiac stent, denies prior heart attack, denies irregular heart beat, notes high cholesterol, denies poor circulation, denies heart failure, other cardiac issues, notes claudication, denies cold feet, denies peripheral arterial stent. Respiratory: The patient denies tuberculosis, denies pneumonia, denies frequent cough, denies pulmonary embolism, denies shortness of breath, and denies coughing up blood. Gastrointestinal: The patient denies difficulty swallowing, notes acid reflux, denies ulcers, denies vomiting, denies jaundice/hepatitis, denies gallbladder problems, denies black or tarry stools, denies hemorrhoids, denies bleeding from rectum, denies diverticulitis, denies constipation, denies diarrhea, denies loss of stool control, and denies hernias. Kidney/Bladder: The patient denies kidney stones, denies urine infections, and denies bloody urine. Skin: The patient denies a history of skin cancer, denies bleeding/changing moles, and denies a history of skin rash. Neurologic: The patient denies a history of epilepsy/convulsions, notes headaches, denies head/spinal injuries, and denies stroke/TIA. Psychiatric: The patient denies psychiatric medications, denies depression, and denies voices, denies substance abuse. Endocrine: The patient denies thyroid disorders, notes diabetes, and denies hormonal problems. Hematologic: The patient notes a history of bruising, denies bleeding, and notes anemia, denies blood clots. Infections: The patient notes a history of measles and mumps, denies rheumatic fever, and denies sexually transmitted diseases. Musculoskeletal: The patient notes back pain/injury, denies back problems, denies sciatica, denies knee/foot trouble, notes arthritis, or denies gout. When was patient's last Mammogram screening? N/A Last Colonoscopy: none Shiela Thacker LPN documented in this encounter [facility] 06-26-2022 Miscellaneous Notes Pt called and is notified of providers message and instructions. Pt voices understanding. Jennifer Blue RN The following approved medication requests have been transmitted electronically. Requested Prescriptions Signed Prescriptions Disp Refills glimepiride (AMARYL) 2 mg tablet 30 tablet 5 Sig: Take 1 tablet by mouth daily with breakfast. Authorizing Provider: MARTHA BOSTON Blood-Glucose Meter monitoring kit 1 Each 0 Sig: Glucose Meter of Choice - Kit - Dx: Type 2 DM - Uncontrolled E11.65 Authorizing Provider: NADIR GRADY Lancets lancets 100 Each 11 Sig: Test blood sugar(s) 2 times daily. Dx: Type 2 DM - Uncontrolled E11.65 Insulin: No Authorizing Provider: NADIR GRADY blood sugar diagnostic (BLOOD GLUCOSE TEST) test strip 100 Strip 11 Sig: Test blood sugar(s) 2 times daily. Dx: Type 2 DM - Uncontrolled E11.65 Insulin: No Authorizing Provider: NADIR GRADY MD Frida Cameron (pt's relative & emergency contact) called to verify appts. Frida states to go ahead & call in new Rx for glucometer, lancets & test strips to [facility], pending. Beulah Wright LPN Looking at med list it seems like he has not had a new glucose meter in 5 years. See if he is ok with us sending in scripts for new meter, lancets and test strips? Noted. When is next time [facility] coming out to check? Martha Boston PA-C The following approved medication requests have been transmitted electronically. Requested Prescriptions Signed Prescriptions Disp Refills glimepiride (AMARYL) 2 mg tablet 30 tablet 5 Sig: Take 1 tablet by mouth daily with breakfast. Authorizing Provider: MARTHA BOSTON PA-C Jennifer at [facility] was called and given providers information. She requested last OV notes be faxed over for Dr Kern to see. She states they will call back once he has looked at them and made any decisions. Faxed last OV note to [phone]. Pt called and is notified of providers results and instructions. Pt voices understanding. Pt states he has been taking the metformin and actos as prescribed. He states he would be will to back on the glimiperide to get his readings down. He states he did not do his BS today he needs to get lancets, so he could not do it while on the phone. Pt was put through to scheduling to make General Surgery appointment. Pt knows to come in and get labs done. Will call [facility]. Jennifer Blue RN Let patient know that his anemia is worsening. We need to further evaluate this with additional labs and consult for scopes to check for blood loss. Could be causing his fatigue. His glucose was significantly high at 443. This could be causing/exacerbating his symptoms as well. Please confirm with patient that he is taking both metformin and actos as prescribed. I know at one point he was adjusting his medications on his own. Did he check his BS today? Can he check while on the phone. Would he be willing to go back on glimiperide to help get these readings down? Also can you contact [facility] and let them know we saw patient yesterday and his BP was 80/50. We are working up anemia and adjusting diabetic management, but didn't know if they wanted to address the low blood pressure and make medication change. Martha Boston PA-C documented in this encounter [facility] 06-25-2022 Miscellaneous Notes Jaspal with [facility] called for office visit from today 06-25-22 apt with CAMELIA Candelario. Identified pt with name and date of . Faxed copy to [phone]. Done. Selma Echevarria LPN documented in this encounter [facility] 06-25-2022 Instructions Martha Boston PA-C - 06/25/2022 8:10 AM EDT Make an appointment with cardiology to discuss your blood pressures. documented in this encounter [facility] 06-25-2022 History of Present illness Narrative Chief Complaint Patient presents with: Weight Loss: Patient states has had loss of weight, muscle mass. Is also having head pain HPI Michael Bates is a 67 year old male who presents here today for multiple concern. Patient's appointment was scheduled for medication check since we had started zoloft and increased it last month. However patient has multiple concerns today. He reports that he is continuing to have issues with his BP being low. He has not had an appointment with cardiology since the summer. He states that he continues to n/t in his head. Is on gabapentin and seeing neuro but feels that no one is addressing the issues. Patient also feels like he is losing muscle mass. His legs feel weaker and tender to touch at times. He has lost almost 20lbs in just 2 months. Last 6 Encounter Wt Readings: Date: Wt: 06/25/2022 70.8 kg (156 lb) 05/14/2022 73.8 kg (162 lb 12.8 oz) 05/13/2022 73.5 kg (162 lb) 04/25/2022 79.5 kg (175 lb 4.8 oz) 04/19/2022 79.8 kg (176 lb) 04/05/2022 77.1 kg (170 lb) Past medical history, appointments, medications, allergies reviewed. Previous Medical History PAST MEDICAL HISTORY Diagnosis Date Acute right-sided low back pain with right-sided sciatica 07/09/2016 Adhesive capsulitis of shoulder 12/04/2007 Adjustment disorder with depressed mood 10/16/2006 Anemia of chronic disease 02/14/2021 Benign non-nodular prostatic hyperplasia without lower urinary tract symptoms 10/03/2016 Bilateral chronic knee pain 10/10/2016 Bilateral occipital neuralgia 08/04/2015 Carotid stenosis, asymptomatic, bilateral 08/09/2015 US 08/2015: bilateral 20-40%, US 06/2017 Rt; 40-60% and Lt 60-80% monitored by cardio Cervical spondylosis 01/20/2012 Cervicalgia 10/16/2006 Cervicogenic headache 10/16/2015 Chronic post-traumatic headache 08/04/[address] Duque Chronic sinusitis Claudication (HCC) 06/04/2017 PVR's normal. Coronary atherosclerosis due to lipid rich plaque 01/20/[address] Kern. s/p RODDY to Ramus and RODDY to LAD placed 01/20/2017. COVID-19 virus infection 06/18/202106/2021 DDD (degenerative disc disease), cervical 01/20/2012 DDD (degenerative disc disease), lumbar 06/30/2016 Multi level, worse L2-L3 Diabetes (HCC) Diabetic eye exam (HCC) 03/19/2017 Last done: 10/01/2018 Elevated LFTs 08/05/2015 Essential hypertension, benign GERD without esophagitis 06/12/2018 History of COVID-19 06/18/202106/2021 Illiteracy 10/09/2020 Leg pain, bilateral 06/04/2017 Lumbago 02/09/2010 * Dealing with on his own as of 08/2011 -- had a bad experience with a spine surgeon, nearly did surgery based on the wrong x-rays * Dates back to an injury while lifting 55 lbs Lumbar radiculopathy Migraine variant 07/22/2006 Since head injury around 1995 Mixed hyperlipidemia 08/04/2015 Neck pain, chronic 10/16/2015 Neuropathy 06/12/2018 Primary insomnia 03/02/2019 Radicular pain of right lower extremity 07/09/2016 S/P drug eluting coronary stent placement 01/20/201712/2016: 2 stents: Ramus of Circ and LAD S/P drug eluting coronary stent placement 01/20/201712/2016: 2 stents: Ramus of Circ and LAD, 05/10/20 RODDY to pLCx Sciatica 02/09/2010 Seborrheic dermatitis 08/04/2015 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, s/p repair Unspecified pruritic disorder 03/02/2009 Previous Surgical History PAST SURGICAL HISTORY Procedure Laterality Date 2D ECHO (EXEP) 01/16/2017 EF=60%, 1+ AK and TI CATARACT EXTRACTION HX Left 10/2019 CC CORONARY STENT 05/10/2020 RODDY to pLCx CC CORONARY STENT 12/2016 Ramus of Circ and LAD CC CORONARY STENT 11/20/2020 RODDY to pLCx and PTCA to OM2 CC CORONARY STENT 07/23/2021 PCI to prox Lt Circ in-stent restenosis then placement of RODDY FECAL OCCULT BLOOD TEST 04/19/2019 Negative PAST SURGICAL HISTORY OF 1971 appendix PAST SURGICAL HISTORY OF right foot -- tendon surgery PAST SURGICAL HISTORY OF 1999 +/- Right hand -- trauma, aneurysm repair/CTS release -- Dr. Llanes PAST SURGICAL HISTORY OF 2008 torn cartilage -- arthroscopy, left knee PAST SURGICAL HISTORY OF 2017 right hand ulnar artery aneurism repair. STRESS TEST 07/01/2018 negative STRESS TEST NUCLEAR 07/2019 negative Family History FAMILY HISTORY Problem Relation Age of Onset Lung Cancer Mother lung Coronary Artery Disease Sister former smoker Stroke Sister other (neurofibromatosis) Son from mother Patient Allergies ALLERGIES Allergen Reactions Florinef [Fludrocor* Angioedema Perfumes Other: See Comments sneezing Current Medications Current Outpatient Medications on File Prior to Visit Medication Sig pioglitazone (ACTOS) 30 mg tablet Take 1 tablet by mouth once daily. metFORMIN ER (GLUCOPHAGE XR) 500 mg 24 hr tablet Take 2 tablets by mouth twice daily. gabapentin (NEURONTIN) 800 mg tablet Take 1 tablet by mouth twice daily for 90 days. LORazepam (ATIVAN) 0.5 mg Take 1 tablet by mouth twice daily as needed (anxiety) for up to 30 days. sertraline (ZOLOFT) 50 mg tablet Take 1 tablet by mouth once daily. predniSONE (DELTASONE) 20 mg tablet One daily per cardio, Dr. kern ranolazine ER (RANEXA) 500 mg 12 hr tablet Take 1 tablet by mouth twice daily. Per cardio, Dr. Kern fluticasone (FLONASE) 50 mcg/actuation nasal spray INSTILL 2 SPRAYS IN EACH NOSTRIL ONCE DAILY nitroglycerin sublingual (NITROSTAT) 0.4 mg SL tablet Dissolve 1 tablet under the tongue every 5 minutes as needed for chest pain. atorvastatin (LIPITOR) 80 mg tablet Take 1 tablet by mouth once daily. Managed by cardiology, Dr. Kern midodrine (PROAMATINE) 10 mg tablet Take 1 tablet by mouth three times daily. Per [facility] clopidogrel (PLAVIX) 75 mg tablet Take 1 tablet by mouth once daily. Managed by [facility] omega-3 fatty acids 1,000 mg cap Take 2 capsules by mouth once daily. aspirin, enteric coated (ECOTRIN LOW STRENGTH) 81 mg EC tablet Take 1 tablet by mouth once daily. blood sugar diagnostic (BLOOD GLUCOSE TEST) test strip Test blood sugar(s) 2 times daily. Dx: Type 2 DM - Uncontrolled E11.65 Insulin: No Blood Pressure Monitor kit 1 Each once daily. Blood Glucose Control High and Low (ACCU-CHEK MEGHANA CONTROL SOLN) soln Use as directed as indicated to check quality of test strips Blood-Glucose Meter monitoring kit Glucose Meter of Choice - Kit - Dx: Type 2 DM - Uncontrolled E11.65 Lancets lancets Test blood sugar(s) 2 times daily. Dx: Type 2 DM - Uncontrolled E11.65 Insulin: No amantadine HCl (SYMMETREL) 100 mg capsule Take 1 capsule by mouth twice daily. (Patient not taking: Reported on 06/25/2022) No current facility-administered medications on file prior to visit. Social History Social History Tobacco Use Smoking status: Never Smokeless tobacco: Former Types: Chew Quit date: 07/02/2014 Tobacco comments: 1 can of chewing tobacco every 3 days PT QUIT 2014 Vaping Use Vaping Use: Never used Substance Use Topics Alcohol use: No Drug use: No Review of Symptoms REVIEW OF SYSTEMS See hpi EXAM: BP 80/50 (BP Site: Right Arm, BP Position: Sitting, BP Cuff Size: Regular Adult) Pulse 76 Temp 37.1 C (98.7 F) Resp 16 Wt 70.8 kg (156 lb) BMI 22.38 kg/m General Appearance: Well appearing, alert, in no acute distress, well-hydrated, well nourished.. Neck: Supple, no adenopathy; thyroid symmetric, normal size, no bruits. Lungs: Lungs clear to auscultation. No wheezing, rhonchi, rales.. Heart: RRR without murmur, gallop, or rubs. No ectopy. Extremities: No deformities, edema, skin discoloration, clubbing or cyanosis. Good capillary refill. . Peripheral Pulses: Normal. Health Maintenance List DEPRESSION ASSESSMENT Never done COVID-19 VACCINE(2 - Pfizer series) due on 09/06/2021 BP CONTROLLED (<130/80) due on 12/06/2021 DILATED RETINAL EXAM due on 01/09/2022 URINE ALBUMIN:CREATININE RATIO due on 11/02/2022 HBA1C due on 11/10/2022 LDL CHOLESTEROL due on 04/17/2023 DIABETIC FOOT EXAM due on 05/13/2023 ANNUAL PCP TEAM CHRONIC DISEASE VISIT due on 05/13/2023 DTAP,TDAP,TD(4 - Td or Tdap) due on 03/01/2031 INFLUENZA Completed ADVANCE DIRECTIVE DISCUSSION Completed HEPATITIS C SCREENING Completed SHINGRIX VACCINE Completed PNEUMOCOCCAL: 65+ Completed COLORECTAL CANCER SCREENING Discontinued Data reviewed ASSESSMENT/PLAN: 1. Abnormal weight loss - ICD9: 783.21, ICD10: R63.4 (primary diagnosis) Check: If normal, proceed with CT chest/abd/pelv - CBC + DIFF - TSH BLD - COMP METABOLIC PANEL - TESTOSTERONE TOTAL - T4 FREE/FREE THYROX - CK CREATINE KINASE - XR CHEST 2V FRONTAL/LAT - US ABD RT UPPER QUADRANT - FOLATE SERUM - VITAMIN B12 BLOOD - VITAMIN D 25 HYDROXY 2. Muscle mass - ICD9: 729.89, ICD10: M62.89 Check: - FOLATE SERUM - VITAMIN B12 BLOOD - VITAMIN D 25 HYDROXY 3. Intractable chronic post-traumatic headache - ICD9: 339.22, ICD10: G44.321 - FOLATE SERUM - VITAMIN B12 BLOOD - VITAMIN D 25 HYDROXY 4. Neuropathy - ICD9: 355.9, ICD10: G62.9 - FOLATE SERUM - VITAMIN B12 BLOOD - VITAMIN D 25 HYDROXY 5. Situational depression - ICD9: 309.0, ICD10: F43.21 improved - FOLATE SERUM - VITAMIN B12 BLOOD - VITAMIN D 25 HYDROXY 6. Fatigue, unspecified type - ICD9: 780.79, ICD10: R53.83 - CBC + DIFF - TSH BLD - TESTOSTERONE TOTAL - T4 FREE/FREE THYROX - FOLATE SERUM - VITAMIN B12 BLOOD - VITAMIN D 25 HYDROXY 7. Myalgia - ICD9: 729.1, ICD10: M79.10 Check: - CK CREATINE KINASE - FOLATE SERUM - VITAMIN B12 BLOOD - VITAMIN D 25 HYDROXY Martha Boston PA-C documented in this encounter [facility] 06-20-2022 Miscellaneous Notes Jaspal Odonnell LPN returned call and went over notes below from Dr Grady with understanding. Patient has appt scheduled for Friday with Martha valentine, added muscle mass loss and weight loss to appt notes, so can discuss these issues. [facility]aspal will [facility] for other rx refills. Left message for patient Jaspal to contact office regarding patient. Alayna Urrutia MA Attempted to contact patient to schedule an appointment. Tried several times phone rings fast busy. Alayna Urrutia MA Please advise patient he should make an appt to eval the muscle mass loss. Also inform him that his plavix and lipitor come from the [facility] and will need to contact them is he needs scripts sent to [facility]. Requested Prescriptions Signed Prescriptions Disp Refills pioglitazone (ACTOS) 30 mg tablet 90 tablet 1 Sig: Take 1 tablet by mouth once daily. Authorizing Provider: NADIR GRADY metFORMIN ER (GLUCOPHAGE XR) 500 mg 24 hr tablet 360 tablet 1 Sig: Take 2 tablets by mouth twice daily. Authorizing Provider: NADIR GRADY gabapentin (NEURONTIN) 800 mg tablet 180 tablet 0 Sig: Take 1 tablet by mouth twice daily for 90 days. Authorizing Provider: NADIR GRADY Patient calls back and states that she also wanted to let provider know that patient is complaining since he had Covid 2 weeks ago patient has been losing muscle mass rapidly. No change in diet or medications noted. See message below regarding prescriptions. Please review and advise, Beverly Rawls RN Jaspal calls back and notified of provider instructions. Jaspal voices understanding. Patient is now getting his prescriptions through [facility]. Asking for prescriptions to be sent there. Patient's blood sugar is 245 today. Please review and advise, Beverly Rawls RN Let jaspal know I want to increase his actos to 30 mg a day. Is he still getting meds packaged from [facility] or did he change pharmacies. Jaspal BAG WORKER [facility] reports they have the [employer] health program and they were called in a blood sugar on the Pt of 447. She states the Pt reports he has only had a milk so far this morning. Pt takes Actos daily and Metformin twice a day. Pt is asymptomatic. Jaspal SAHNI told Pt to start drinking lots of water. Please call and advise. documented in this encounter [facility] 05-30-2022 Miscellaneous Notes Frida called and Michael fell with head strike, went to ED last evening, dropped drill on foot, having headaches, problems with sensations in legs now. Headaches worsening and requesting advisement. Thank you, Michelle Oakes documented in this encounter [facility] 05-29-2022 Miscellaneous Notes Received fax from [facility] requesting pt's last A1c as pt is in there program. Last A1c faxed to [phone] as requested. Yamile Burns LPN documented in this encounter [facility] 05-28-2022 History of Present illness Narrative Called to triage patient. 67 year old male presents with multiple complaints. Headache Endorses that the back of his neck and head hurt. Endorses a few days ago he fell off couch, struck head and had LOC. States that the pain is severe. Denies seeking medical treatment. Given his worsening headache with injury and LOC, Referred to ED documented in this encounter [facility] 05-28-2022 Miscellaneous Notes Noted. Call placed to Jaspal with provider response. Jaspal reports that she has since spoke with patient and he reports that he hasn't stopped the amantadine or sertraline. She also wonders how patient would be aware of s/e. Verified patient is taking midodrine when BP is greater than 120/80. Instructed Jaspal to contact Dr. Kern for further assistance with directions since he prescribes this. Notified Jaspal that patient would have to be responsible to notify [facility] of no longer needing services and would need to let provider's office know when he is in need of prescriptions through [facility]. Jaspal verbalizes understanding and plans to contact patient. Nury Jo RN Since patient cant read how does he know what the possible side affects are? The Zoloft and amantadine are most likely not causing the dizziness it's the low BP's. It doesn't make sense to take the midodrine when his BP is above 120/80 since it's ment to raise his BP not lower it. Also we just got a call from [facility] asking us to send the Actos script to them yesterday ??? Not sure how they know it went to [facility] (which is what the patient wanted) but since the person who responded to the message was [facility] aware [facility]. So if he is not going to use [facility] then he needs to let them know and then update use when he wants meds sent to [facility]. However I think this is a bad idea since he can not read. Jaspal Clayton with [facility] calls to update provider on patient. Jaspal reports that patient has stopped taking sertraline and amantadine d/t possible side effect of dizziness. She reports that he is removing the pills from his pill packs supplied by [facility] but patient isn't able to read so she is not certain how he is actually identifying the correct pills to remove. Patient reported to Jaspal that he is no longer going to receive medication pill packs from [facility] and wants [facility] nurse to fill weekly for patient. Recent blood sugar readings: 232, 198, 270, and this am 387 after eating a PB sandwich. Jaspal uncertain if the other readings are fasting but they are all AM readings. Recent blood pressure readings: 111/54, 54/41, 67/49, 80/56, 117/61, and 141/67 (today). Patient takes midodrine if BP above 120/80 which is managed by Dr. Kern. Currently taking prednisone 20 mg daily also ordered by Dr. Kern. Jaspal requesting a call back at [phone] if provider wants any changes or any response to the above. Please review and advise, Nury Jo RN documented in this encounter [facility] 05-24-2022 Miscellaneous Notes Patient notified. Alayna Urrutia MA Let patient know Actos sent to [facility] for 90 days. The following approved medication requests have been transmitted electronically. Requested Prescriptions Signed Prescriptions Disp Refills pioglitazone (ACTOS) 15 mg tablet 90 tablet 1 Sig: Take 1 tablet by mouth once daily. Authorizing Provider: NADIR GRADY MD Patient called, he would like prescription sent to [facility] [place] today. Did contact Frida and she indicated that she did speak with Michael and she is ok with medication being sent to [facility] but would need some system for Michael. Was talking to Frida about sending the medication for Actos now to [facility] and our phone . Alayna Urrutia MA Spoke with Jaspal and gave her PCP instructions. Also spoke with patient and he would like for this medication to go to [facility]. In fact he would like all of this medication to go to [facility]. I will contact Jaspal to let her know. Alayna Urrutia MA Let Jaspal with [facility] know his Januvia is most likely the most expensive. Looking at his med sheet from [facility] the next two most costly are his Amantadine at $39 - $43.82 a month prescribed by Neurology and then his Ranolazine at $19.68 a month prescribed by cardiology and then his Gabapentin at $15.59 a month prescribed by us. Advise her that I'm changing the Januvia to Actos 15 mg a day. Let Michael know I'm sending in a new medication to replace the Januvia called Actos (pioglitazone) 15 mg a day. Hopefully not as costly. Also advise him that almost every side affect profile will have dizziness and lightheadedness listed as a potential side affect. The following approved medication requests have been transmitted electronically. Requested Prescriptions Signed Prescriptions Disp Refills pioglitazone (ACTOS) 15 mg tablet 30 tablet 5 Sig: Take 1 tablet by mouth once daily. Authorizing Provider: NADIR GRADY MD Received list from pharmacy and given to PCP for review. Alayna Urrutia MA Jaspal with [facility] had called in and reported that the Pt had read the side effects of the Januvia were lightheadedness and dizziness and refused to take it. Pt reported that he deals with that enough on a daily basis. She also reported about his medications costing $500 this month. I let her know that the Januvia can cost quite a bit if it isn't covered by insurance. She reports you can call her if you were wanting to change this medication. Contacted pharmacy and they are faxing over the cost/co-pays for all the medications. Alayna Urrutia MA Januvia can be expensive if not covered by insurance. Are they able to get a breakdown of the cost from the pharmacy so we can address the specific meds that may be causing him the high costs. It would be hard to make changes without knowing where the concern actually is. Martha Boston PA-C Frida Cameron, relative of pt called and states pt's medications are now up to over $500.00 a sheet and family concerned. Frida states she would like someone to review pt's medications and see if there could be cheaper ones sent to the pharmacy. Especially Blood pressure and diabetes medications. Some of the medications pt takes are given to him from different providers and she will contact them. Pt was seen in [facility] 05-14-22 and dx with ANA. Pt not able to do virtual apts. Please review and instruct Frida. Willing to bring in for an apt. Let Frida know. Pt's pharmacy is [id number] and gets pre packed sheets. Selma Echevarria LPN documented in this encounter [facility] 05-15-2022 Miscellaneous Notes The following approved medication requests have been transmitted electronically. Requested Prescriptions Signed Prescriptions Disp Refills SITagliptin (JANUVIA) 50 mg tablet 30 tablet 5 Sig: Take 1 tablet by mouth once daily. Authorizing Provider: MARTHA BOSTON PA-C Patient called in for Lab results, given below results/recommendation. Patient is willing to try Januvia, updated pharmacy. He will come in next week to repeat labs. Symone العلي LPN Left message for pt to contact office. Yamile Burns LPN As we discussed, a1c did go up to 7.8%. would he be willing to try januvia? Sodium level just borderline low.. recheck in 1 week, Rest of labs wnl. documented in this encounter [facility] 05-13-2022 Instructions Martha Boston PA-C - 05/13/2022 8:09 AM EDT Please complete labs today. We have increased zoloft to 50mg. Follow up in 6 weeks for recheck on the increase of zoloft. Follow up in 6 months medicare wellness exam. Make sure to schedule your eye exam documented in this encounter [facility] 05-13-2022 History of Present illness Narrative Chief Complaint Patient presents with: 6 Month Exam HPI Michael Bates is a 67 year old male who presents here today for Chronic Medical Conditions.. Patient with hx of DM, chronic headaches, bilateral carotid stenosis seeing vascular, CAD seeing cardio, HTN, GERD, hyperlipidemia as well as those reviewed and addressed below. Last month we started on zoloft and prn ativan. He does feel like it's been helping. No other concerns today. Past medical history, appointments, medications, allergies reviewed. Previous Medical History PAST MEDICAL HISTORY Diagnosis Date Acute right-sided low back pain with right-sided sciatica 07/09/2016 Adhesive capsulitis of shoulder 12/04/2007 Adjustment disorder with depressed mood 10/16/2006 Anemia of chronic disease 02/14/2021 Benign non-nodular prostatic hyperplasia without lower urinary tract symptoms 10/03/2016 Bilateral chronic knee pain 10/10/2016 Bilateral occipital neuralgia 08/04/2015 Carotid stenosis, asymptomatic, bilateral 08/09/2015 US 08/2015: bilateral 20-40%, US 06/2017 Rt; 40-60% and Lt 60-80% monitored by cardio Cervical spondylosis 01/20/2012 Cervicalgia 10/16/2006 Cervicogenic headache 10/16/2015 Chronic post-traumatic headache 08/04/[address] Duque Chronic sinusitis Claudication (HCC) 06/04/2017 PVR's normal. Coronary atherosclerosis due to lipid rich plaque 01/20/[address] Kern. s/p RODDY to Ramus and RODDY to LAD placed 01/20/2017. COVID-19 virus infection 06/18/202106/2021 DDD (degenerative disc disease), cervical 01/20/2012 DDD (degenerative disc disease), lumbar 06/30/2016 Multi level, worse L2-L3 Diabetes ([facility]) Diabetic eye exam ([facility]) 03/19/2017 Last done: 10/01/2018 Elevated LFTs 08/05/2015 Essential hypertension, benign GERD without esophagitis 06/12/2018 History of COVID-19 06/18/202106/2021 Leg pain, bilateral 06/04/2017 Lumbago 02/09/2010 * Dealing with on his own as of 08/2011 -- had a bad experience with a spine surgeon, nearly did surgery based on the wrong x-rays * Dates back to an injury while lifting 55 lbs Lumbar radiculopathy Migraine variant 07/22/2006 Since head injury around 1995 Mixed hyperlipidemia 08/04/2015 Neck pain, chronic 10/16/2015 Neuropathy 06/12/2018 Primary insomnia 03/02/2019 Radicular pain of right lower extremity 07/09/2016 S/P drug eluting coronary stent placement 01/20/201712/2016: 2 stents: Ramus of Circ and LAD S/P drug eluting coronary stent placement 01/20/201712/2016: 2 stents: Ramus of Circ and LAD, 05/10/20 RODDY to pLCx Sciatica 02/09/2010 Seborrheic dermatitis 08/04/2015 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, s/p repair Unspecified pruritic disorder 03/02/2009 Previous Surgical History PAST SURGICAL HISTORY Procedure Laterality Date 2D ECHO (EXEP) 01/16/2017 EF=60%, 1+ AK and TI CATARACT EXTRACTION HX Left 10/2019 CC CORONARY STENT 05/10/2020 RODDY to pLCx CC CORONARY STENT 12/2016 Ramus of Circ and LAD CC CORONARY STENT 11/20/2020 RODDY to pLCx and PTCA to OM2 CC CORONARY STENT 07/23/2021 PCI to prox Lt Circ in-stent restenosis then placement of RODDY FECAL OCCULT BLOOD TEST 04/19/2019 Negative PAST SURGICAL HISTORY OF 1971 appendix PAST SURGICAL HISTORY OF right foot -- tendon surgery PAST SURGICAL HISTORY OF 1999 +/- Right hand -- trauma, aneurysm repair/CTS release -- Dr. Llanes PAST SURGICAL HISTORY OF 2008 torn cartilage -- arthroscopy, left knee PAST SURGICAL HISTORY OF 2017 right hand ulnar artery aneurism repair. STRESS TEST 07/01/2018 negative STRESS TEST NUCLEAR 07/2019 negative Family History FAMILY HISTORY Problem Relation Age of Onset Lung Cancer Mother lung Coronary Artery Disease Sister former smoker Stroke Sister other (neurofibromatosis) Son from mother Patient Allergies ALLERGIES Allergen Reactions Florinef [Fludrocor* Angioedema Perfumes Other: See Comments sneezing Current Medications Current Outpatient Medications on File Prior to Visit Medication Sig gabapentin (NEURONTIN) 800 mg tablet Take 1 tablet by mouth twice daily for 90 days. predniSONE (DELTASONE) 20 mg tablet One daily per cardio, Dr. kern ranolazine ER (RANEXA) 500 mg 12 hr tablet Take 1 tablet by mouth twice daily. Per cardio, Dr. Kern amantadine HCl (SYMMETREL) 100 mg capsule Take 1 capsule by mouth twice daily. sertraline (ZOLOFT) 25 mg tablet Take 1 tablet by mouth once daily. LORazepam (ATIVAN) 0.5 mg Take 1 tablet by mouth twice daily as needed (anxiety) for up to 30 days. fluticasone (FLONASE) 50 mcg/actuation nasal spray INSTILL 2 SPRAYS IN EACH NOSTRIL ONCE DAILY nitroglycerin sublingual (NITROSTAT) 0.4 mg SL tablet Dissolve 1 tablet under the tongue every 5 minutes as needed for chest pain. atorvastatin (LIPITOR) 80 mg tablet Take 1 tablet by mouth once daily. Managed by cardiology, Dr. Kern metFORMIN ER (GLUCOPHAGE XR) 500 mg 24 hr tablet Take 2 tablets by mouth twice daily. midodrine (PROAMATINE) 10 mg tablet Take 1 tablet by mouth three times daily. Per [facility] clopidogrel (PLAVIX) 75 mg tablet Take 1 tablet by mouth once daily. Managed by [facility] omega-3 fatty acids 1,000 mg cap Take 2 capsules by mouth once daily. aspirin, enteric coated (ECOTRIN LOW STRENGTH) 81 mg EC tablet Take 1 tablet by mouth once daily. blood sugar diagnostic (BLOOD GLUCOSE TEST) test strip Test blood sugar(s) 2 times daily. Dx: Type 2 DM - Uncontrolled E11.65 Insulin: No Blood Pressure Monitor kit 1 Each once daily. Blood Glucose Control High and Low (ACCU-CHEK MEGHANA CONTROL SOLN) soln Use as directed as indicated to check quality of test strips Blood-Glucose Meter monitoring kit Glucose Meter of Choice - Kit - Dx: Type 2 DM - Uncontrolled E11.65 Lancets lancets Test blood sugar(s) 2 times daily. Dx: Type 2 DM - Uncontrolled E11.65 Insulin: No amitriptyline (ELAVIL) 50 mg tablet Take 2.5 tabs QHS for a week, then 2 tabs QHS for a week, then 1.5 tabs for a week, then 1 tab QHS for a week then 1/2 a tab for a week, then 1/2 a tab every other day for 3 doses then stop (Patient not taking: Reported on 05/13/2022) diphenhydrAMINE (BENADRYL) 25 mg capsule Take 1 capsule by mouth every 6 hours as needed. (Patient not taking: Reported on 04/19/2022) No current facility-administered medications on file prior to visit. Social History Social History Tobacco Use Smoking status: Never Smokeless tobacco: Former Types: Chew Quit date: 07/02/2014 Tobacco comments: 1 can of chewing tobacco every 3 days PT QUIT 2015 Vaping Use Vaping Use: Never used Substance Use Topics Alcohol use: No Drug use: No Review of Symptoms REVIEW OF SYSTEMS GENERAL: No weight loss, malaise or fevers NECK: Negative for lumps, goiter, pain and significant neck swelling RESPIRATORY: Negative for cough, hemoptysis, wheezing, COPD, dyspnea or shortness of breath CARDIOVASCULAR: Negative for chest pain, leg swelling, hypertension, CHF or palpitations NEURO: No history of headaches, syncope, paralysis, seizures or tremors EXAM: BP 138/66 (BP Site: Left Arm, BP Position: Sitting, BP Cuff Size: Regular Adult) Pulse 72 Temp 36.7 C (98.1 F) Resp 16 Wt 73.5 kg (162 lb) BMI 23.24 kg/m General Appearance: Well appearing, alert, in no acute distress, well-hydrated, well nourished.. Neck: Supple, no adenopathy; thyroid symmetric, normal size, no bruits. Lungs: Lungs clear to auscultation. No wheezing, rhonchi, rales.. Heart: RRR without murmur, gallop, or rubs. No ectopy. Extremities: No deformities, edema, skin discoloration, clubbing or cyanosis. Good capillary refill. . Peripheral Pulses: Normal. Feet:Shoes and socks removed, No deformities, ulcers, calluses, normal distal pulses, sensitive to 10 gm monofilament, and vibratory perception normal Health Maintenance List COVID-19 VACCINE(2 - Pfizer series) due on 09/06/2021 DILATED RETINAL EXAM due on 01/09/2022 PNEUMOCOCCAL: 65+(3 - PPSV23 or PCV20) due on 02/06/2022 DIABETIC FOOT EXAM due on 02/14/2022 HBA1C due on 05/11/2022 INFLUENZA(1) due on 05/02/2022 URINE ALBUMIN:CREATININE RATIO due on 11/02/2022 LDL CHOLESTEROL due on 04/17/2023 ANNUAL PCP TEAM CHRONIC DISEASE VISIT due on 04/19/2023 BP CONTROLLED (<130/80) due on 04/25/2023 DTAP,TDAP,TD(4 - Td or Tdap) due on 03/01/2031 ADVANCE DIRECTIVE DISCUSSION Completed HEPATITIS C SCREENING Completed SHINGRIX VACCINE Completed COLORECTAL CANCER SCREENING Discontinued DEPRESSION SCREENING Discontinued Data reviewed Component Latest Ref Rng & Units 04/17/2022 Cholesterol, Total 103 Triglyceride 128 HDL CHOLESTEROL 38 LDL Cholesterol 39 ASSESSMENT/PLAN: 1. Encounter for immunization - ICD9: V03.89, ICD10: Z23 (primary diagnosis) - PNEUMOCOCCAL VACCINE (PREVNAR 20) - INFLUENZA SEASONAL QUADRIVALENT HIGH DOSE AGE 65+ 2. Type 2 diabetes mellitus with diabetic neuropathy, without long-term current use of insulin (HCC) - ICD9: 250.60, 357.2, ICD10: E11.40 Await labs - Continue current medications - BP goal of <130/80 - LDL goal of <100 3. Essential hypertension, benign - ICD9: 401.1, ICD10: I10 - good control - Continue current medication(s) - Recommended regular aerobic exercise. - Recommend home blood pressure monitoring, to bring results in on next visit - Goal of BP <130/80 4. Mixed hyperlipidemia - ICD9: 272.2, ICD10: E78.2 - good control - Encouraged following a low carbohydrate, healthy oil intake diet. - Continue current therapy. 5. Coronary atherosclerosis due to lipid rich plaque - ICD9: 414.3, ICD10: I25.10, I25.83 Cont with cardio 6. GERD without esophagitis - ICD9: 530.81, ICD10: K21.9 stable 7. Carotid stenosis, asymptomatic, bilateral - ICD9: 433.10, 433.30, ICD10: I65.23 Recent US stable. 8. Migraine variant - ICD9: 346.20, ICD10: G43.809 Continue with neuro 9. Adjustment disorder with depressed mood - ICD9: 309.0, ICD10: F43.21 Increase zoloft to 50mg. Recheck in 6 weeks. Follow up in 6 weeks for depression check Follow up in 6 months for wellness exam Martha Boston PA-C documented in this encounter [facility] 05-03-2022 Miscellaneous Notes Patient has been identified by name and date of : Yes Pharmacy phones for refill(s): Requested Prescriptions Pending Prescriptions Disp Refills gabapentin (NEURONTIN) 800 mg tablet 180 tablet 0 Sig: Take 1 tablet by mouth twice daily for 90 days. Date of last office visit with pcp: 04-19-22. Next appt: 05-13-22 Last 2 Encounter Wt Readings: Date: Wt: 04/25/2022 79.5 kg (175 lb 4.8 oz) 04/19/2022 79.8 kg (176 lb) Previous labs/tests for medication: Blood Pressure: BUN Date Value 04/05/2022 15 mg/dL 04/26/2021 17 MG/DL 02/14/2021 13 mg/dL Sodium Date Value 04/05/2022 136 mmol/L 04/24/2021 140 MEQ/L 02/14/2021 138 mmol/L NA (mmol/L) Date Value 04/26/2021 138 Last 1 Encounter BP Readings: Date: BP: 04/25/2022 109/70 Liver Function: ALT (U/L) Date Value 11/02/2021 21 02/14/2021 26 ALT (SGPT) (U/L) Date Value 10/18/2021 26 AST (U/L) Date Value 11/02/2021 21 02/14/2021 20 AST (SGOT) (U/L) Date Value 10/18/2021 19 Please advise. Thank you. Abdirahman Duong RN documented in this encounter [facility] 05-02-2022 Miscellaneous Notes Noted. Jaspal Odonnell LPN from [facility] called and is notified of providers message. She voices understanding. She reports that Pt hadn't started the Amantadine when she had been there on Friday, he had to wait for it to get there. She reports he has been on the Midodrine for 3-4 months. She states she would have to look to see how long he had been on the Ranexa. Jennifer Blue RN Let jaspal know if the symptoms just started then I would consider one of the newer meds he is on. Amantadine per his neurologist or the Ranexa or Midodrine per [facility] Jaspal Odonnell LPN from [facility] calling patient is complaining of his mouth burning if he eats any pickles or ketchup. He eats a lot of potato chips for the salt, that does not bother him. Patient has no open sores in his mouth at all. Asking if any of his medications may be causing this? Please advise documented in this encounter [facility] 04-30-2022 Miscellaneous Notes Jaspal advised of Dr Grady's message. She will contact office back if weaning instructions are needed. Yamile Burns LPN Let Jaspal know that I talked with patient via MY Chart and he told me he already had instructions on how to wean off the Amitriptyline. Ask her to check with him today when she sees him. If this is not the case let me know and I will address. Jaspal SAHNI from [facility] calling to check status of note. Office notes from 04/25 visit with Neuro says to discuss with Dr Grady to discontinue Amitriptyline. Jaspal has appt with patient at 10 am today, she is asking for weaning instructions please. Please advise Will forward note regarding tapering of amitriptyline to Neuro. Med list updated. Jaspal SAHNI from [facility] calls to report that patient had seen Rin Gagnon yesterday and was started on amantadine. Jaspal noticed that there were some historical medications not on the after summary list that Dr. Vieira has ordered. Prednisone 20 mg Daily Ranolazine 500 mg Twice a day Jaspal states that at appointment with was Rin had mentioned patient weaning off of amitriptyline. Bull states there were no instructions on how to wean off of medication. Please review and advise, Beverly Rawls RN documented in this encounter [facility] 04-27-2022 Miscellaneous Notes Please see pt's update. Yamile Burns LPN documented in this encounter [facility] 04-25-2022 Instructions Rin Gagnon APRN.[employer] - 04/25/2022 2:35 PM EDT Ortostatic Hypotension. Conservative Measures Increased water intake (2-2.5 liters of water daily) Increased salt intake (3-5 grams daily) Compression stockings Increased Exercise Medication Changes Continue Midodrine 10 mg three times per day Start Amantadine 100 mg twice per day Discuss with Dr. Grady regarding stopping amitriptyline in setting of orthostasis Occipital Neuralgia Occipital nerve block given in office today Orthostatic hypotension is a condition in which the body has difficulty regulating the blood pressure with standing. This results in a drop in BP with position change or prolonged standing which can increase the risk for falls and passing out. Many medications can affect this process and sometimes stopping or reducing offending medications can help. There are also a few medications that can lessen the frequency or severity of symptoms but these medications will not fix the problem. Medications alone are not enough to manage orthostatatic hypotension (OH). Caution and care can go a long way to prevent falls and injury. I recommend caution with sudden position changes. For example avoid jumping up from the couch to answer the phone, or getting up suddenly in the middle of the night to use the restroom. Try to avoid bending over and standing suddenly. When possible kneel down rather than bend at the waist. Care with bending over to tie your shoes, instead place foot on a stool or similar so that you can reach without bending head down. When getting up from lying or sitting, take your time, sit on the edge of the chair/bed and stop for a second or two before standing to ensure you are not dizzy. Then stand but stop for a couple seconds and make sure you feel okay before starting to walk, this gives your body just a couple seconds to equilibrate but also allows you time to make sure you feel okay before walking. If you feel dizzy, sit or lie back down for a few minutes and then retry. Avoid standing still for periods of time as this will increase the drop in BP. Try to sway, dance, march in place or contract your but and thigh muscles while standing. This muscle contraction can slow down the fall in BP. Examples of times to be caution are standing in like at the store, standing at the counter or sink preparing meals or doing dishes, at the counter looking in the mirror for hygiene, and importantly the shower. The shower is a common time for falls in part due to the hot humid environment and in part due to standing. When in the shower try to avoid hot showers, if you do take a hot shower, cool the water in stages. Consider towel drying in the shower, so the change in temp is not as dramatic when leaving the shower. Use the techniques mentioned above to avoid standing still. Importantly, have a bench or chair in the shower to sit if you become lightheaded. Avoid large meals and especially large amounts of simple carbohydrates. Symptoms can be exacerbated by the displacement of blood to digest large meals and simple carbohydrates are easier to digest and may increase these responses. Eat frequent small meals and snacks instead. It is important to stay hydrated, most people should drink at least 3 liters of fluid a day and I recommend half be water. If you have heart or kidney failure check with your doctor to ensure you do not need to restrict fluid. Many people with orthostatic hypotension have hypertension, so a high salt diet may not be best for you. It is important to discuss this with your doctor, if you to not have a contraindication a higher sodium diet may be helpful. Compression garments can significantly help symptoms but importantly, knee high compression stalkings offer little benefit. I recommend either leggings (ankle to waist, 20-30mmHg) or a combination of thigh high and an abdominal binder (can be easier to put on and take off than the leggings). Patients with orthostatic hypotension are very prone to deconditioning and functional decline. It is very important to exercise regularly, this will not improve your BP control but importantly can help you maintain function and by strengthening your muscles and protecting your joints, may improve balance and lessen risks for falls and injuries. Work with your doctor to develop and appropriate exercise program. Patients with debilitating symptoms should speak with their primary care doctor for consideration for physical therapy for gait and stability training. Some patients are more symptomatic in the morning after first getting up, this is due to a combination of being supine (flat) all night and also relatively dehydrated. If you have this problem. My advice is to place a stretch band and glass or bottle of water on your night stand. When you first wake, while still lying in bed place the stretch band over one of your feet and hold the ends in your hands and perform 10-15 band resisted leg stretches with each leg. Then sit on the side of the bed and drink the glass of water prior to standing. It is important that you pay attention to your body and recognize the warning signs. If you feel dizzy or feel that you are going to pass out, do not try to go somewhere else (for example if in the kitchen going to the living room or if in the bathroom going to the bedroom). Stop wherever you are and do one of two things: First is postural response. Postural response simply means lie down flat on your back until the symptoms pass. If you cannot lie down then sit down or in a pinch lean over a counter or table but this is a last resort. The second option is physical counter manuevers. Physical counter maneuvers are techniques that try to elevate the blood pressure to you brain to stop passing out these are only temoporizing measures to try to avoid passsing out. You can cross your legs and tighten the muscles of your abdomen, butt and thighs. You can pull your hands apart and tighten the same muscles (this can be done standing or sitting) or you can open and close, squeezing your hands very firmly (like squeeze the juice out of two oranges). Physical counter maneuvers may stop a passing out spell but importantly when you relax the blood tends to fall so be sure to lie down or sit down after. If you have a spell don't be to quick to get back up. Lie there for a few minutes, then sit. If someone is with you have them get you a glass of water and drink it quickly as this may temporarily raise you BP. If you feel okay then stand, if you feel dizzy again lay back down. I would caution against returning to the activity that provoked your symptoms, the recovery period is a good time to take a breath and lie down or sit down and rest for a short period of time. Orthostatic hypotension 1. Make all postural changes from lying to sitting or sitting to standing slowly. 2. Drink to 2.0 -2.5 L of fluids per day. With bad symptoms, drink 500 cc of water quickly. This will result in an increased blood pressure within 5 minutes of drinking the water. The effect will last up to one hour and may improve orthostatic intolerance. 3. Increase sodium in the diet to 3 - 5 g per day. If not helpful and BP is stable, may try 5-7 g per day. IF BLOOD PRESSURE RISES OR IS RISING CUT BACK ON SALT LOADING 4. Avoid large meals which can cause low blood pressure during digestion. It is better to eat smaller meals more often than three large meals. 5. Avoid alcohol. Alcohol and cause blood to pool in the legs which may worsen low blood pressure reactions when standing. Avoid excessive caffeine intake as it may increase urine production and reduce blood volume. 6. Perform lower extremity exercises to improve strength of the leg muscles. This will help prevent blood from a pooling in the legs when standing and walking. Preferred exercises are walking, squatting or stationery bicycling. documented in this encounter [facility] 04-25-2022 History of Present illness Narrative Images from the original note were not included. [facility] New Patient Evaluation Michael Bates is a 67 year old Right handed male with history of CAD, HLD, HTN, DM, Covid-19 (2020) Migraine. Patient presents with: New Patient Consultation requested by Dr. Troy/Jenna Jim CNP for an opinion regarding Orthostatic hypotension. My final recommendations will be communicated back to the requesting physician by way of shared Medical record or letter to requesting physician via US mail. Starting in October 2021 he began having symptoms of syncope. He was leaving his sister in laws house and lost consciousness while walking. He struck his head on the wall during fall sustaining a concussion. He has had 8 syncopal episodes since onset. He will have multiple episodes of near syncope daily. He reports dizziness, shakiness, tremors, low BP. He will have tremors and shaking lasting up to 2 hours. He can get lightheaded/dizzy when sitting or standing. Does not occur laying down. He has had tremors in bilateral hands for years. He reports his sons also have history of tremors. He reports imbalance. Denies gait abnormalities. He will have shooting pain in right occiput lasting a few seconds at a time. This occurs multiple times per day. Pain is rated 8/10. He sometimes will use lidocaine patch to relieve symptoms. Pain is reproducible with palpitation. Autonomic Screening Do you become dizzy or lightheaded with standing? yes Do you notice your heart racing (tachycardia) with postural change? no Do you have syncope? Yes In the past month, did you have any falls? 1 How long can you stand (in minutes) before becoming symptomatic? a few seconds to a minute Are symptoms worse after consuming a meal? no Are symptoms alleviated by sitting/laying down? sometimes yes Autonomic check list: YES (Y) or NO (N) Dry mouth: yes Dry eyes: no Change in sweat: no Constipation: no Abdominal Bloating with shortly after eating: no Fluctuation of diarrhea and constipation: no Urination: no Change in taste: no Challenge swallowing foods:no Skin changes of blue or redness to distal limbs: no Fainting /near syncope/syncope: yes Dizziness: yes Light headiness: yes Chest pain: yes Challenge in breathing: no Tachycardia: no Temperature Regulation: no Numbness/tingling: from neck over top of head to chin. He has had an episode of numbness on right side after a syncopal episode. He shortly after regained feeling. Hx of head/neck trauma? Yes- concussion with first syncopal episode Hx of severe viral illness? COVID 19 in 2020. He had significant weight loss from 205 to 165 over last year or so Hx of autoimmune disease? No History of emotional or physical abuse? No Relevant Work Up To Date Autonomic Reflex Tilt QSART Skin Biopsy [employer] Echo EEG Labs: SPEP- normal, HGBA1C 7.1, Current management of orthostatic condition Diet: Regular diet Exercise: non existent, getting back into it, has bow flex. Water: 7-8 bottles per day Salt: increased dietary Stockings: knee high Elevated HOB: sleeps in recliner Current Medications for orthostatic condition Midodrine 10 mg TID Prior Medications for orthostatic condition Fludrocortisone- lips and tongue swelling Autonomic Screening Medications Reviewed sertraline (ZOLOFT) 25 mg tablet Take 1 tablet by mouth once daily. LORazepam (ATIVAN) 0.5 mg Take 1 tablet by mouth twice daily as needed (anxiety) for up to 30 days. fluticasone (FLONASE) 50 mcg/actuation nasal spray INSTILL 2 SPRAYS IN EACH NOSTRIL ONCE DAILY nitroglycerin sublingual (NITROSTAT) 0.4 mg SL tablet Dissolve 1 tablet under the tongue every 5 minutes as needed for chest pain. atorvastatin (LIPITOR) 80 mg tablet Take 1 tablet by mouth once daily. Managed by cardiology, Dr. Kern gabapentin (NEURONTIN) 800 mg tablet Take 1 tablet by mouth twice daily for 90 days. metFORMIN ER (GLUCOPHAGE XR) 500 mg 24 hr tablet Take 2 tablets by mouth twice daily. midodrine (PROAMATINE) 10 mg tablet Take 1 tablet by mouth three times daily. Per [facility] Amitriptyline HCl 150 mg tablet Take 1 tablet by mouth daily at bedtime. clopidogrel (PLAVIX) 75 mg tablet Take 1 tablet by mouth once daily. Managed by [facility] omega-3 fatty acids 1,000 mg cap Take 2 capsules by mouth once daily. aspirin, enteric coated (ECOTRIN LOW STRENGTH) 81 mg EC tablet Take 1 tablet by mouth once daily. diphenhydrAMINE (BENADRYL) 25 mg capsule Take 1 capsule by mouth every 6 hours as needed. (Patient not taking: Reported on 04/19/2022) blood sugar diagnostic (BLOOD GLUCOSE TEST) test strip Test blood sugar(s) 2 times daily. Dx: Type 2 DM - Uncontrolled E11.65 Insulin: No Blood Pressure Monitor kit 1 Each once daily. Blood Glucose Control High and Low (ACCU-CHEK MEGHANA CONTROL SOLN) soln Use as directed as indicated to check quality of test strips Blood-Glucose Meter monitoring kit Glucose Meter of Choice - Kit - Dx: Type 2 DM - Uncontrolled E11.65 Lancets lancets Test blood sugar(s) 2 times daily. Dx: Type 2 DM - Uncontrolled E11.65 Insulin: No ALLERGIES Allergen Reactions Perfumes Other: See Comments sneezing PAST MEDICAL HISTORY: PAST MEDICAL HISTORY Diagnosis Date Acute right-sided low back pain with right-sided sciatica 07/09/2016 Adhesive capsulitis of shoulder 12/04/2007 Adjustment disorder with depressed mood 10/16/2006 Anemia of chronic disease 02/14/2021 Benign non-nodular prostatic hyperplasia without lower urinary tract symptoms 10/03/2016 Bilateral chronic knee pain 10/10/2016 Bilateral occipital neuralgia 08/04/2015 Carotid stenosis, asymptomatic, bilateral 08/09/2015 US 08/2015: bilateral 20-40%, US 06/2017 Rt; 40-60% and Lt 60-80% monitored by cardio Cervical spondylosis 01/20/2012 Cervicalgia 10/16/2006 Cervicogenic headache 10/16/2015 Chronic post-traumatic headache 08/04/[address] Duque Chronic sinusitis Claudication (HCC) 06/04/2017 PVR's normal. Coronary atherosclerosis due to lipid rich plaque 01/20/[address] Kern. s/p RODDY to Ramus and RODDY to LAD placed 01/20/2017. COVID-19 virus infection 06/18/202106/2021 DDD (degenerative disc disease), cervical 01/20/2012 DDD (degenerative disc disease), lumbar 06/30/2016 Multi level, worse L2-L3 Diabetes ([facility]) Diabetic eye exam ([facility]) 03/19/2017 Last done: 10/01/2018 Elevated LFTs 08/05/2015 Essential hypertension, benign GERD without esophagitis 06/12/2018 History of COVID-19 06/18/202106/2021 Leg pain, bilateral 06/04/2017 Lumbago 02/09/2010 * Dealing with on his own as of 08/2011 -- had a bad experience with a spine surgeon, nearly did surgery based on the wrong x-rays * Dates back to an injury while lifting 55 lbs Lumbar radiculopathy Migraine variant 07/22/2006 Since head injury around 1995 Mixed hyperlipidemia 08/04/2015 Neck pain, chronic 10/16/2015 Neuropathy 06/12/2018 Primary insomnia 03/02/2019 Radicular pain of right lower extremity 07/09/2016 S/P drug eluting coronary stent placement 01/20/201712/2016: 2 stents: Ramus of Circ and LAD S/P drug eluting coronary stent placement 01/20/201712/2016: 2 stents: Ramus of Circ and LAD, 05/10/20 RODDY to pLCx Sciatica 02/09/2010 Seborrheic dermatitis 08/04/2015 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, s/p repair Unspecified pruritic disorder 03/02/2009 PAST SURGICAL HISTORY Procedure Laterality Date 2D ECHO (EXEP) 01/16/2017 EF=60%, 1+ AK and TI CATARACT EXTRACTION HX Left 10/2019 CC CORONARY STENT 05/10/2020 RODDY to pLCx CC CORONARY STENT 12/2016 Ramus of Circ and LAD CC CORONARY STENT 11/20/2020 RODDY to pLCx and PTCA to OM2 CC CORONARY STENT 07/23/2021 PCI to prox Lt Circ in-stent restenosis then placement of RODDY FECAL OCCULT BLOOD TEST 04/19/2019 Negative PAST SURGICAL HISTORY OF 1971 appendix PAST SURGICAL HISTORY OF right foot -- tendon surgery PAST SURGICAL HISTORY OF 1999 +/- Right hand -- trauma, aneurysm repair/CTS release -- Dr. Llanes PAST SURGICAL HISTORY OF 2008 torn cartilage -- arthroscopy, left knee PAST SURGICAL HISTORY OF 2017 right hand ulnar artery aneurism repair. STRESS TEST 07/01/2018 negative STRESS TEST NUCLEAR 07/2019 negative Social History Tobacco Use Smoking status: Never Smokeless tobacco: Former Types: Chew Quit date: 07/02/2014 Tobacco comments: 1 can of chewing tobacco every 3 days PT QUIT 2014 Vaping Use Vaping Use: Never used Substance Use Topics Alcohol use: No Drug use: No family history includes Coronary Artery Disease in his sister; Lung Cancer in his mother; Stroke in his sister; neurofibromatosis in his son. ROS: autonomic review of systems questions General Examination: BP 109/70 Pulse 86 Temp 36.6 C (97.8 F) (Temporal) Resp 16 Wt 79.5 kg (175 lb 4.8 oz) SpO2 97% BMI 25.15 kg/m 04/25/22 1314 BP: 109/70 Pulse: 86 Resp: 16 Temp: 36.6 C (97.8 F) TempSrc: Temporal SpO2: 97% Weight: 79.5 kg (175 lb 4.8 oz) Neurological Examination: Cognition The patient is alert and oriented times four Lucid and organized in conversation Able to provide detailed medical hx Speech Speech is Normal in fluency, volume, and clarity; no dysarthria Content and syntax are coherent Comprehension: Able to follow several step commands Cranial Nerves PERRLA No ptosis Visual romero are full to confrontation Extraocular movements are intact - smooth saccades and pursuits; No nystagmus Facial motor exam is strong and symmetric Equal sensation of trigeminal nerve - V1,V2, and V3 Soft palate elevation is symmetric, tongue is in midline, no tongue fasciculation. Neck range of motion is full Trapezius Strength is symmetric, graded 5/5 Tone and Bulk Tone and bulk is normal and preserved bilaterally of arms Tone and bulk is normal and preserved bilaterally of legs No apparent muscle atrophy No pes cavus or hammer toes Strength Shoulder Abduction 5/5 5/5 Elbow Flexion 5/5 5/5 Elbow Extension 5/ 5/5 Wrist Flexion 5/ 5/5 Wrist Extension / 5/5 Finger Extension / 5/5 Finger Flexion 01/03 5/5 Finger Abduction 01/03 5/5 Hip Flexion 01/03 5/5 Hip Adduction 01/03 5/5 Hip Abduction 01/03 5/5 Knee Flexion 01/03 5/5 Knee Extension 01/03 5/5 Ankle Dorsiflexion 01/03 5/ Ankle Plantarflexion 01/03 5/ Ankle Inversion 01/03 5/ Ankle Eversion 01/03 5/5 Big Toe Extension 01/03 55 Movement/Coordination Finger-to- nose-finger and [id number] intact bilaterally. No evidence of ataxia arms. No limb dysmetria of arms and legs. Rapid alternating movements of pronation and supination, finger and hand tapping intact. There is no asterixis of the hands. No rigidity, cog wheeling, or bradykinesia. Slight Action tremors bilateral hands No extrapyramidal findings or dystonia Sensation Intact to light touch, decreased pinprick bilateral lower legs, and temperature sensation at toes and fingers, bilaterally. Normal proprioception (toe position and thumb). Decreased vibration from feet to knees bilaterally. Reflexes Right Left Bicep 2/4 2/4 Tricep 2/4 2/4 Brachioradialis 2/4 2/4 Patella 2/4 2/4 Ankle 2/4 2/4 Gait Able to stand without upper body assistance. Normal station and stride No festination or retropulsion. Slight decrease in arm swing L>R and normal body turn. Normal toe, heel, and somewhat off balanced to tandem walk. Romberg's sign is negative IMPRESSION/PLAN: Michael Bates is a 67 year old male with hx of CAD, HLD, HTN, DM, Covid-19 (2020) Migraine presents today for evaluation and treatment of orthostatic hypotension with recurrent episodes of syncope. He was referred for evaluation for autonomic dysfunction with possible parkinson's disease. Orthostatic hypotension is evident on orthostatic vitals assessment with BP dropping from 113/75 down to 78/53. He is currently on midodrine 10 mg TID however he has only take one dose at time of appointment today. He does not have bradyphrenia, bradykinesia, shuffled gait, or mask like face to raise concern of central cause of autonomic dysfunction e.g. MSA vs Parkinson's. Decreased pinprick, and vibration sensation to lower extremities is concerning for small fiber neuropathy which is likely contributing to OH. Neuropathy is likely secondary to diabetes. We discussed possible confirmation of neuropathy with tests such as skin nerve biopsy however he has restrictions with transportation and would be difficulty to go to [place] to complete. Medications can also be contributing to his symptoms. He is taking amitriptyline 150 mg for sleep which could contribute to orthostasis. He has been on this medication for about 3 years and I can not be sure if or how much this may contributing, however I am recommending he follow up with PCP to discuss discontinuation and alternate treatment options. We discussed the role of non-pharmacologic therapy such as increasing fluid and electrolyte intake, changing position slowly, and continued work with increasing exercise. He does not have apparent signs of parkinson's, however autonomic dysfunction can be early symptoms. We discussed various treatment options. We discussed adding amantadine 100 mg BID and continuing Midodrine 10 TID. We discussed importance of taking medication as prescribed and avoid laying down 3-4 hours after each dose of midodrine to avoid supine hypertension. If other symptoms of parkinson arise I would recommend evaluation with movement specialist. Additionally he has had ongoing concerns for occipital neuralgia affecting right side. He will have episodes of shooting pain multiple times per day lasting a few seconds at a time. Pain is reproducible on palpitation in office today. We discussed occipital nerve blocks which he reports he may have had a few years ago and had benefit. He will use lidocaine patches at home which provide some temporary relief. Ortostatic Hypotension. Conservative Measures Increased water intake (2-2.5 liters of water daily) Increased salt intake (3-5 grams daily) Compression stockings Increased Exercise Medication Changes Continue Midodrine 10 mg three times per day Start Amantadine 100 mg twice per day Discuss with Dr. Grady regarding stopping amitriptyline in setting of orthostasis Occipital Neuralgia Occipital nerve block given in office today Diagnosis: Occipital Neuralgia Procedure: Right side greater and lesser occipital nerve blocks. The risks, benefits and anticipated outcomes of the procedure, the risks and benefits of the alternatives to the procedure, and the roles and tasks of the personnel to be involved were discussed with the patient, and the patient consents to the procedure and agrees to proceed. Electronic Informed consent signed. A 10-cc syringe filled with 0.5% bupivacaine (9.5cc) and triamcinolone (0.5 cc) was used to inject the Right occipital nerve 3cm caudal and 1.5cm lateral to the inion where the main trunk of the occipital nerve penetrates the semispinalis muscle. The needle was placed perpendicular and the needle advanced 1.5 cm. After aspiration to ensure no obstruction or presence of blood, the area was injected. The needle was repositioned in a fan-like manner and the entire area was injected including that of the lesser occipital nerve. Patient tolerated the procedure well and there were no immediate complications. UNIVERSAL PROTOCOL / SAFETY CHECKLIST Procedure to be Performed: Right side greater and lesser occipital nerve blocks. Sign In: A Moment of CARE was completed. Personnel directly involved with the procedure wore the appropriate PPE (Personal Protective Equipment). Patient/Surrogate Stated/Verified: PATIENT VERIFIED(optional for EMERGENT procedures): Patient name, Date of , Relevant allergies, and The intended procedure Time Out Communication: Intended patient and procedure match the source documents. Consent documented and matches the intended procedure. Sign Out: SIGN OUT (optional for EMERGENT procedures): No specimen collected. Rin Gagnon APRN.MIGEL I spent a total of 90 minutes on the date of the service which included preparing to see the patient, [id number] patient care, completing clinical documentation, obtaining and/or reviewing separately obtained history, performing a medically appropriate examination, counseling and educating the patient/family/caregiver, and ordering medications, tests, or procedures. During our face to face clinical encounter we discussed my concerns neurologically in terms of diagnosis, impact on health and activities of living, and addressed questions. I tried to reassure the patient and also address questions. I explained to the patient to call if any questions, to review results, and I want to see them return for neurological follow up as mychart as next steps of communication is agreed upon Patient verbalizes understanding and I have addressed concerns and questions at this visit Patient has my contacts, educational material provided, and my chart sign up. After visit summary discussed. ACTIVE PROBLEM LIST Migraine Variant Adjustment Disorder With Depressed Mood Adhesive capsulitis of shoulder Lumbago Sciatica Essential Hypertension, Benign Ddd (Degenerative Disc Disease), Cervical Cervical Spondylosis Chronic Sinusitis Mixed Hyperlipidemia Lumbar Radiculopathy Chronic Post-Traumatic Headache Bilateral Occipital Neuralgia Seborrheic Dermatitis Elevated Lfts Carotid Stenosis, Asymptomatic, Bilateral Neck Pain, Chronic Cervicogenic Headache Ddd (Degenerative Disc Disease), Lumbar Radicular Pain of Right Lower Extremity Acute Right-Sided Low Back Pain With Right-Sided Sciatica Benign Non-Nodular Prostatic Hyperplasia Without Lower Urinary Tract Symptoms Disorder of Prostate Type 2 Diabetes Mellitus With Diabetic Neuropathy, Without Long-Term Current Use of Insulin (Hcc) Bilateral Chronic Knee Pain Coronary Atherosclerosis Due to Lipid Rich Plaque S/P Drug Eluting Coronary Stent Placement Diabetic Eye Exam ([facility]) Leg Pain, Bilateral Medicare Annual Wellness Visit, Subsequent Gerd Without Esophagitis Neuropathy Primary Insomnia Abnormal Dreams Medication Management Illiteracy Anemia of Chronic Disease History of Covid-19 No orders found for this visit on 04/25/22. Rin Gagnon APRN.MIGEL General Neurology [address] [place] [address]. [id number] Appointment: [phone] 1. This office note has been dictated and may contain minor typographic errors that escaped review 2. The nursing staff and medical assistants are a major part of YOUR TREATMENT TEAM and will be handling your phone calls and inquiries, if any. Unless explicitly told otherwise at the time of your office visit, your study results and ensuing treatment plans will be discussed during your follow-up appointment. If you do not have a follow-up appointment and wish to discuss any issues directly with me, please feel free to obtain one. 3. It is my practice to not fill disability or any other insurance-related forms/documention. All of the office notes, study results, and other pertinent documentation generated as part of your evaluation will be available to you and to your Primary Care Physician (PCP). Use of this material to complete such forms will be at the discretion of your PCP/referring physician documented in this encounter [facility] 04-19-2022 History of Present illness Narrative Chief Complaint Patient presents with: Medication Request HPI Michael Bates is a 67 year old male who presents here today for ER Follow Up.. Patient with hx of some depression and anxiety but has been off of zoloft for a couple years. On 04/05 he was in ER for intractable tremor. Once they gave him a dose of ativan, that is when things calmed down and he was able to relax. He is scheduled to see neurology next week however they (him and sister in law) feel like these episodes are likely more related to anxiety/stress. His son just had open heart surgery and was in the hospital. Michael was visiting him the day that he had a major episode while there and that's how he was taken to [facility] ER. He himself recently had heart surgery back in January. He has a follow up with cardiology today. Has had low BP and passed out the other day. Past medical history, appointments, medications, allergies reviewed. Previous Medical History PAST MEDICAL HISTORY Diagnosis Date Acute right-sided low back pain with right-sided sciatica 07/09/2016 Adhesive capsulitis of shoulder 12/04/2007 Adjustment disorder with depressed mood 10/16/2006 Anemia of chronic disease 02/14/2021 Benign non-nodular prostatic hyperplasia without lower urinary tract symptoms 10/03/2016 Bilateral chronic knee pain 10/10/2016 Bilateral occipital neuralgia 08/04/2015 Carotid stenosis, asymptomatic, bilateral 08/09/2015 US 08/2015: bilateral 20-40%, US 06/2017 Rt; 40-60% and Lt 60-80% monitored by cardio Cervical spondylosis 01/20/2012 Cervicalgia 10/16/2006 Cervicogenic headache 10/16/2015 Chronic post-traumatic headache 08/04/[address] Duque Chronic sinusitis Claudication (HCC) 06/04/2017 PVR's normal. Coronary atherosclerosis due to lipid rich plaque 01/20/[address] Kern. s/p RODDY to Ramus and RODDY to LAD placed 01/20/2017. COVID-19 virus infection 06/18/202106/2021 DDD (degenerative disc disease), cervical 01/20/2012 DDD (degenerative disc disease), lumbar 06/30/2016 Multi level, worse L2-L3 Diabetes (HCC) Diabetic eye exam ([facility]) 03/19/2017 Last done: 10/01/2018 Elevated LFTs 08/05/2015 Essential hypertension, benign GERD without esophagitis 06/12/2018 History of COVID-19 06/18/202106/2021 Leg pain, bilateral 06/04/2017 Lumbago 02/09/2010 * Dealing with on his own as of 08/2011 -- had a bad experience with a spine surgeon, nearly did surgery based on the wrong x-rays * Dates back to an injury while lifting 55 lbs Lumbar radiculopathy Migraine variant 07/22/2006 Since head injury around 1995 Mixed hyperlipidemia 08/04/2015 Neck pain, chronic 10/16/2015 Neuropathy 06/12/2018 Primary insomnia 03/02/2019 Radicular pain of right lower extremity 07/09/2016 S/P drug eluting coronary stent placement 01/20/201712/2016: 2 stents: Ramus of Circ and LAD S/P drug eluting coronary stent placement 01/20/201712/2016: 2 stents: Ramus of Circ and LAD, 05/10/20 RODDY to pLCx Sciatica 02/09/2010 Seborrheic dermatitis 08/04/2015 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, s/p repair Unspecified pruritic disorder 03/02/2009 Previous Surgical History PAST SURGICAL HISTORY Procedure Laterality Date 2D ECHO (EXEP) 01/16/2017 EF=60%, 1+ AK and TI CATARACT EXTRACTION HX Left 10/2019 CC CORONARY STENT 05/10/2020 RODDY to pLCx CC CORONARY STENT 12/2016 Ramus of Circ and LAD CC CORONARY STENT 11/20/2020 RODDY to pLCx and PTCA to OM2 CC CORONARY STENT 07/23/2021 PCI to prox Lt Circ in-stent restenosis then placement of RODDY FECAL OCCULT BLOOD TEST 04/19/2019 Negative PAST SURGICAL HISTORY OF 1971 appendix PAST SURGICAL HISTORY OF right foot -- tendon surgery PAST SURGICAL HISTORY OF 1999 +/- Right hand -- trauma, aneurysm repair/CTS release -- Dr. Llanes PAST SURGICAL HISTORY OF 2008 torn cartilage -- arthroscopy, left knee PAST SURGICAL HISTORY OF 2017 right hand ulnar artery aneurism repair. STRESS TEST 07/01/2018 negative STRESS TEST NUCLEAR 07/2019 negative Family History FAMILY HISTORY Problem Relation Age of Onset Lung Cancer Mother lung Coronary Artery Disease Sister former smoker Stroke Sister other (neurofibromatosis) Son from mother Patient Allergies ALLERGIES Allergen Reactions Perfumes Other: See Comments sneezing Current Medications Current Outpatient Medications on File Prior to Visit Medication Sig fluticasone (FLONASE) 50 mcg/actuation nasal spray INSTILL 2 SPRAYS IN EACH NOSTRIL ONCE DAILY nitroglycerin sublingual (NITROSTAT) 0.4 mg SL tablet Dissolve 1 tablet under the tongue every 5 minutes as needed for chest pain. atorvastatin (LIPITOR) 80 mg tablet Take 1 tablet by mouth once daily. Managed by cardiology, Dr. Kern gabapentin (NEURONTIN) 800 mg tablet Take 1 tablet by mouth twice daily for 90 days. metFORMIN ER (GLUCOPHAGE XR) 500 mg 24 hr tablet Take 2 tablets by mouth twice daily. midodrine (PROAMATINE) 10 mg tablet Take 1 tablet by mouth three times daily. Per [facility] Amitriptyline HCl 150 mg tablet Take 150 mg by mouth daily at bedtime. Amitriptyline HCl 150 mg tablet Take 1 tablet by mouth daily at bedtime. clopidogrel (PLAVIX) 75 mg tablet Take 1 tablet by mouth once daily. Managed by [facility] omega-3 fatty acids 1,000 mg cap Take 2 capsules by mouth once daily. aspirin, enteric coated (ECOTRIN LOW STRENGTH) 81 mg EC tablet Take 1 tablet by mouth once daily. blood sugar diagnostic (BLOOD GLUCOSE TEST) test strip Test blood sugar(s) 2 times daily. Dx: Type 2 DM - Uncontrolled E11.65 Insulin: No Blood Pressure Monitor kit 1 Each once daily. Blood Glucose Control High and Low (ACCU-CHEK MEGHANA CONTROL SOLN) soln Use as directed as indicated to check quality of test strips Blood-Glucose Meter monitoring kit Glucose Meter of Choice - Kit - Dx: Type 2 DM - Uncontrolled E11.65 Lancets lancets Test blood sugar(s) 2 times daily. Dx: Type 2 DM - Uncontrolled E11.65 Insulin: No carvedilol (COREG) 3.125 mg tablet Take 1 tablet by mouth twice daily. (Patient not taking: Reported on 02/07/2022 ) diphenhydrAMINE (BENADRYL) 25 mg capsule Take 1 capsule by mouth every 6 hours as needed. (Patient not taking: Reported on 04/19/2022) No current facility-administered medications on file prior to visit. Social History Social History Tobacco Use Smoking status: Never Smokeless tobacco: Former Types: Chew Quit date: 07/02/2014 Tobacco comments: 1 can of chewing tobacco every 3 days PT QUIT 2015 Vaping Use Vaping Use: Never used Substance Use Topics Alcohol use: No Drug use: No Review of Symptoms REVIEW OF SYSTEMS See hpi EXAM: BP 118/68 (BP Site: Left Arm, BP Position: Sitting, BP Cuff Size: Regular Adult) Pulse 96 Temp 36.8 C (98.2 F) Resp 18 Wt 79.8 kg (176 lb) BMI 25.25 kg/m General Appearance: Well appearing, alert, in no acute distress, well-hydrated, well nourished.. Health Maintenance List COVID-19 VACCINE(2 - Pfizer series) due on 09/06/2021 DILATED RETINAL EXAM due on 01/09/2022 PNEUMOCOCCAL: 63+(3 - PPSV23 or PCV20) due on 02/06/2022 DIABETIC FOOT EXAM due on 02/14/2022 INFLUENZA(1) due on 05/02/2022 HBA1C due on 05/11/2022 URINE ALBUMIN:CREATININE RATIO due on 11/02/2022 LDL CHOLESTEROL due on 11/02/2022 ANNUAL PCP TEAM CHRONIC DISEASE VISIT due on 11/08/2022 BP CONTROLLED (<130/80) due on 02/07/2023 DTAP,TDAP,TD(4 - Td or Tdap) due on 03/01/2031 ADVANCE DIRECTIVE DISCUSSION Completed HEPATITIS C SCREENING Completed SHINGRIX VACCINE Completed COLORECTAL CANCER SCREENING Discontinued DEPRESSION SCREENING Discontinued Data reviewed ASSESSMENT/PLAN: 1. Situational depression - ICD9: 309.0, ICD10: F43.21 (primary diagnosis) Restart zoloft at just 25mg Okay for prn ativan Patient to keep follow up next month. - LORAZEPAM 0.5 MG TABLET 2. Panic disorder - ICD9: 300.01, ICD10: F41.0 As above. - LORAZEPAM 0.5 MG TABLET Martha Boston PA-C documented in this encounter [facility] 04-09-2022 Miscellaneous Notes Frida was notified and will have patient call to schedule ER follow up Rosa Valentino Ma Please advise Frida that we do not have up to date papers listing her as power of workers compensation attorney for health care. Also this title does not come into affect unless the patient can not speak for himself. I appreciate the info and would advise that Michael make an appt to be seen for ER follow up for tremors/anxiety. Patient POA calling office regarding patient episode of tremor that led to ER visit at [facility] over the weekend. Patient having increased stress currently due to son in hospital. Frida is asking for order of PRN Ativan for patient? (Pharmacy [facility]str) TC to Frida with providers update. Frida is going to call pts PCP, Dr. Grady, to discuss anxiety and depression as well as possible referral to psychiatry. CALLIE Rodriguez Call received from Frida Cameron, pts emergency contact. Frida states that Michael was seen in the ED over the weekend due to having an episode of tremors. In ED patient received IV Ativan which Frida states stopped his tremors almost immediately. Frida says that she has been prescribed Ativan in the past for her anxiety and depression and it has really helped her. Frida states that after seeing what impact it had on Michael, she believes that his tremors are stress and anxiety induced. Frida states Michael's son had open heart surgery last week which she believes was a stress trigger for the tremors. Frida is asking that KD prescribe Michael Ativan to help with his anxiety due to her believing this is the cause of his tremors. Frida says they are not scheduled to see Rin Gagnon until 05/09/2022 and therefore are reaching out to . Please advise. Thank you. CALLIE Rodriguez documented in this encounter [facility] 04-03-2022 Miscellaneous Notes The following approved medication requests have been transmitted electronically. Signed Prescriptions Disp Refills fluticasone (FLONASE) 50 mcg/actuation nasal spray 16 g 11 Sig: INSTILL 2 SPRAYS IN EACH NOSTRIL ONCE DAILY JOANNA: No Authorizing Provider: NADIR GRADY MD Patient has been identified by name and date of : Yes Pharmacy phones for refill(s): Pending Prescriptions Disp Refills FLUTICASONE PROPIONATE 50 MCG/ACTUATION NASAL SPRAY,SUSPENSION 16 g Sig: INSTILL 2 SPRAYS IN EACH NOSTRIL ONCE DAILY JOANNA: Yes Date of last office visit in primary care: 11/08/21 next apt 05/13/22 Last 2 Encounter Wt Readings: Date: Wt: 02/07/2022 78.9 kg (174 lb) 11/08/2021 80.3 kg (177 lb) Previous labs/tests for medication: Not applicable Please advise. Thank you. Selma Echevarria LPN documented in this encounter [facility] 03-25-2022 Miscellaneous Notes The following approved medication requests have been transmitted electronically. Pending Prescriptions Disp Refills NITROGLYCERIN 0.4 MG SUBLINGUAL TABLET 1 Bottle of 25 1 Sig: Dissolve 1 tablet under the tongue every 5 minutes as needed for chest pain. JOANNA: No Rashawn Hewitt APRN.CNP Patient has been identified by name and date of : Yes Pending Prescriptions Disp Refills NITROGLYCERIN 0.4 MG SUBLINGUAL TABLET 1 Bottle of 25 0 Sig: Dissolve 1 tablet under the tongue every 5 minutes as needed for chest pain. JOANNA: No RX INSTRUCTIONS: Patient aware RX will be sent to pharmacy. No need to notify patient. Alayna Urrutia MA [facility]: 10/2021 Nov; 05/2022 Last refill: 03/2021 Patient has been identified by name and date of : Yes Pending Prescriptions Disp Refills NITROGLYCERIN 0.4 MG SUBLINGUAL TABLET 1 Bottle of 25 0 Sig: Dissolve 1 tablet under the tongue every 5 minutes as needed for chest pain. JOANNA: No RX INSTRUCTIONS: Patient aware RX will be sent to pharmacy. No need to notify patient. Barbara Johnson Pss documented in this encounter [facility] 03-20-2022 Miscellaneous Notes Called the patient and relayed the provider's message of CT results. The patient understood the information provided. ----- Message from Jenna Jim APRN.[employer]BESTOS REMOVAL SUPERVISOR sent at 03/19/2022 5:21 PM EDT ----- CT of brain is normal and does not show any evidence of bleed. documented in this encounter [facility] 03-19-2022 History of Present illness Narrative Radiology Service Progress Note PATIENT NAME: Michael Bates DATE OF SERVICE: March 19, 2022 TIME: 3:05 PM PATIENT IDENTITY VERIFICATION COMPLETED USING TWO (2) IDENTIFIERS: Name and Date of confirmed by patient verbally. FALL SCREENING: Has the patient had 2 falls in the last year or 1 fall with injury or currently using an Ambulatory Assistive Device (Walker, Cane, Wheelchair, Crutches, etc.)? No PATIENT GENDER DATA: Male PATIENT RELEVANT IMPLANT DATA REVIEWED: Not Applicable RADIOLOGY DEPARTMENT: CT; Exam(s) Completed: Brain PERIPHERAL IV DATA: Not applicable SIGNED BY: RT Lucretia(R) March 19, 2022 3:05 PM documented in this encounter [facility] 03-19-2022 Miscellaneous Notes Addended by: JENNA JIM on: 03/19/2022 01:50 PM Modules accepted: Orders Addended by: JENNA JIM on: 03/19/2022 01:25 PM Modules accepted: Orders Please call the patient and schedule for a stat CT. Order has been filed. Thank you, Pt states he always has headaches but no new changes or worsening headache. Pt does feel that his speech is slower but no vision changes reported. Also no loss of bowel/bladder control, convulsions, or biting of tongue. Please reach out to patient and assist in scheduling Urgent CT. Is patient having any neurological deficits following the fall (focal weakness, speech changes, vision changes, headache)? As he is currently taking Plavix I would like for him to have a CT of the head to confirm that there is no bleeding (ordered urgent CT). Also surrounding the episode itself, did he lose control of bowel/bladder, have convulsions, or bite his tongue? Please have pt keep appointment scheduled with autonomic clinic on 04/04. TC received in office from pt concerning an episode he had last evening (03/17/22). Pt states that he blacked out for 5 minutes and believes that he fell and hit his head. Pt called Dr. Kern's office and he was told to call Neurology. This staff asked patient if he went to the ED with concerns of hitting his head during the incident. Pt did not go to the ED. Please advise. Thank you. CALLIE Rodriguez documented in this encounter [facility] 02-26-2022 Miscellaneous Notes Patient has been identified by name and date of : Yes Pending Prescriptions Disp Refills ATORVASTATIN 80 MG TABLET 30 tablet 11 Sig: Take 1 tablet by mouth once daily. Managed by cardiology, Dr. Kern JOANNA: No RX INSTRUCTIONS: Per Pharmacist, she does not have a script from 09/06/21. Please re-submit today. Pharmacy initiated this request. No need to notify patient. Zaira Singh Pss documented in this encounter [facility] 02-22-2022 Miscellaneous Notes Spoke with patient's RANJEET Mariee. Discussed consult to autonomic clinic to address orthostatic hypotension prior to initiation of other medications. She is agreeable and states she would be able to drive patient to [place] (she lives in [place]). Consult placed. Will reach out to scheduling to assist with setting up appointment. Addended by: JENNA JIM on: 02/22/2022 01:15 PM Modules accepted: Orders Called patient's RANJEET again and no answer. Left voicemail again. Frida, pt RANJEET, returning call. Frida is given providers message and is agreeable to take pt to [facility] if provider could put in consult. Frida is asking to speak with Jenna Jim directly. Please advise. Thank you. CALLIE Rodriguez Called patient's RANJEET Frida at this time. No answer and voicemail left. Will attempt again later today. Called and spoke with patient. Had cardiac cath. Small amount of blockage. Prescribed Ranexa but hasn't started yet as of today. Just got prescription today. States he is to start taking his midodrine three times daily rather than twice daily; states this was just recently. Recently increased this dose as of last Friday. Has been checking BP at home three times daily. Pt reports blood pressure readings which are still low and states he feels lightheaded often. Discussed consult to autonomic clinic to further address blood pressure prior to initiation of other medications for possible PD. Pt states he does not have capabilities for virtual visit. States he also is not supposed to be driving but states his sister in law may be able to drive him to [place] if that is closest location. Pt asking this provider to call his RANJEET to discuss this with her. Call placed to Frida; pt's RANJEET. No answer and voicemail left. Will attempt to contact again tomorrow. Cardiac testing done at [facility] has been scanned. The patient didn't schedule the 2 months follow up appointment. 02/07/22 Assessment/Plan: R55 Syncope, unspecified syncope type (primary encounter diagnosis) I95.1 Orthostatic hypotension Comment: Patient presenting today for multiple syncopal episodes starting in October 2021. He has experienced four additional episodes since that time. Episodes can be preceded by a lightheaded feeling, tinnitus, or numbness to both legs and can last for up to 30 minutes. Notable hx of htn, hld, CAD, TIA, DM, COVID in 06/21, post traumatic headache Extensive workup has been completed thus far by PCP and cardiology including MRI of brain, CT brain, stress test, cardiac workup (recent echo completed in 07/22), and has received Loop Recorder. Cardiac cath scheduled for this upcoming Friday. 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 Previously noted to have low blood pressure during OV with PCP and has been adjusting BP medications. Has also been started on midodrine by cardiology. Note, had SE with use of fludrocortisone. Orthostatic VS assessed in office today with significant drop from sitting to standing. Pt reports feeling off balance and lightheaded during evaluation. Note, pt wearing compression stockings during assessment. Additionally on exam, pt noted to have shuffling gait and decreased L arm swing. Slight balance concern when turning and retropulsion on pull test. Taking these findings in addition to subjective report of voice and taste changes, balance concerns, as well as dream reenactment, concern for possible PD. Discussed possible medications used for PD, however, these medications may also exacerbate orthostatic concerns. At this time will await results of further cardiac testing scheduled for Friday02/11/22. Would also recommend continuing to follow up with cardiology for medication management and adjustment; currently on midodrine 10mg TID. May need to consider consult to autonomic clinic if no further improvement in pressure. In interim continue utilizing compression stockings and maintaining adequate hydration and nutrition (proteins and salts). R20.0 Facial numbness S09.90XS HX of injury of head, sequela G44.329 Chronic post-traumatic headache, not intractable Comment: Patient reporting baseline facial numbness since head injury in 1972. Numbness extends from the back of his neck, over his scalp, and down his face to the top of his lip. States he feels like he is wearing a hat. Has had imaging of the brain since this sensation began with most recent imaging being last year (note that imaging completed due to increased migraines). MRI of brain from 07/21/21 reviewed and unremarkable. Previously taking gabapentin 800mg BID as well as amitriptyline 150mg QHS without relief of symptoms. He reports that he has previously taken injectable medications and was following with Dr. Gold with pain management. Could consider use of Lyrica, however, given concern for episodes related to drop in BP will hold off on initiation of medications at this time. Can continue to follow with pain management as well. Frida/[id number]-[id number]-[id number]/POA is calling, has not heard back from the office on the next step would be. Please advise. Symone العلي LPN documented in this encounter [facility] 02-07-2022 History of Present illness Narrative Images from the original note were not included. [facility] [place] New Patient visit New Patient Consultation February 07, 2022 HPI: Mr. Bates presents today secondary to issues of syncope. He states that on Oct 13 he had an episode of LOC. Since that time he has had four more episodes. Episodes occur sporadically. Can happen at night but only when getting up out of bed. One time he felt funny while he was standing and he had to sit down and passed out. He does note if getting up to fast he will get dizzy. Episodes can last 30 min. Does not always feel better when laying down. Per Dr. Grady 10/25/21: Patient went to [facility] on 10/16/2021 after having 2 syncopal episodes with in a 24 hr period. The first one was on 10/13/2021 and he was at this sister in laws. He passed out and hit the back of his head and came to shortly after. Denies any palpitations, chest pain or shortness of breath. The next episode was at a friend's house on 10/16/2021. Friend caught him before he hit the ground or head. Also no symptoms of chest pain, palpitations or shortness of breath. Patient just felt lightheaded and dizzy before each episode. Patient went to [facility] 10/16/2021 and BP then was 117/75, PE was within normal limits. EKG showed NSR HR at [address] and no acute changes. CT of brain and neck were negative for acute findings. CBC, CMP, PHYSICAL THERAPY, PTT, INR and Trop were all within normal limits. Will now have a warning which is lightheadedness. Also can have ringing in the ears or numbness to the legs. Can also have numbness in R arm. Baseline numbness to face since 71. Numbness from neck to top lip. Feels like he is wearing a hat. No past surgical intervention. Has had brain imaging; first imaging was last year due to increased migraines. Began having migraines last year. Though to be due to nerve damage. Has had cardiac workup. Had stents placed; , , and . Will be having cardiac cath coming up. Focal weakness to R arm at times due to pinched nerve. Reports tremors; happen when he is angry. No tremor at rest. Reports changes in taste. Feels voice has gotten softer. No difficulty with fine hand coordination. No gait concerns. Does note balance problems. No falls. Denies hallucinations. Acts out dreams at night; has been chronic for ten years. Hx of chronic migraines. Used to take injectable medications. Was seeing Dr. Gold from pain management. No significant events at the onset of symptoms. Does note increased stress around October. No personal neurological hx. Hx of TIA. Had MRI at the time. No family hx of neuro disorder. Had COVID infection last year in June. Sleeps in a chair because sometimes it can make the symptoms worse. Alcohol: Denies Tobacco: Denies Drug: Denies PAST MEDICAL HISTORY Diagnosis Date Acute right-sided low back pain with right-sided sciatica 07/09/2016 Adhesive capsulitis of shoulder 12/04/2007 Adjustment disorder with depressed mood 10/16/2006 Anemia of chronic disease 02/14/2021 Benign non-nodular prostatic hyperplasia without lower urinary tract symptoms 10/03/2016 Bilateral chronic knee pain 10/10/2016 Bilateral occipital neuralgia 08/04/2015 Carotid stenosis, asymptomatic, bilateral 08/09/2015 US 08/2015: bilateral 20-40%, US 06/2017 Rt; 40-60% and Lt 60-80% monitored by cardio Cervical spondylosis 01/20/2012 Cervicalgia 10/16/2006 Cervicogenic headache 10/16/2015 Chronic post-traumatic headache 08/04/[address] Duque Chronic sinusitis Claudication (HCC) 06/04/2017 PVR's normal. Coronary atherosclerosis due to lipid rich plaque 01/20/[address] Kern. s/p RODDY to Ramus and RODDY to LAD placed 01/20/2017. COVID-19 virus infection 06/18/202106/2021 DDD (degenerative disc disease), cervical 01/20/2012 DDD (degenerative disc disease), lumbar 06/30/2016 Multi level, worse L2-L3 Diabetic eye exam (HCC) 03/19/2017 Last done: 10/01/2018 Elevated LFTs 08/05/2015 Essential hypertension, benign GERD without esophagitis 06/12/2018 History of COVID-19 06/18/202106/2021 Leg pain, bilateral 06/04/2017 Lumbago 02/09/2010 * Dealing with on his own as of 08/2011 -- had a bad experience with a spine surgeon, nearly did surgery based on the wrong x-rays * Dates back to an injury while lifting 55 lbs Lumbar radiculopathy Migraine variant 07/22/2006 Since head injury around 1995 Mixed hyperlipidemia 08/04/2015 Neck pain, chronic 10/16/2015 Neuropathy 06/12/2018 Primary insomnia 03/02/2019 Radicular pain of right lower extremity 07/09/2016 S/P drug eluting coronary stent placement 01/20/201712/2016: 2 stents: Ramus of Circ and LAD S/P drug eluting coronary stent placement 01/20/201712/2016: 2 stents: Ramus of Circ and LAD, 05/10/20 RODDY to pLCx Sciatica 02/09/2010 Seborrheic dermatitis 08/04/2015 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, s/p repair Unspecified pruritic disorder 03/02/2009 PAST SURGICAL HISTORY Procedure Laterality Date 2D ECHO (EXEP) 01/16/2017 EF=60%, 1+ AK and TI CATARACT EXTRACTION HX Left 10/2019 CC CORONARY STENT 05/10/2020 RODDY to pLCx CC CORONARY STENT 12/2016 Ramus of Circ and LAD CC CORONARY STENT 11/20/2020 RODDY to pLCx and PTCA to OM2 CC CORONARY STENT 07/23/2021 PCI to prox Lt Circ in-stent restenosis then placement of RODDY FECAL OCCULT BLOOD TEST 04/19/2019 Negative PAST SURGICAL HISTORY OF 1971 appendix PAST SURGICAL HISTORY OF right foot -- tendon surgery PAST SURGICAL HISTORY OF 1999 +/- Right hand -- trauma, aneurysm repair/CTS release -- Dr. Llanes PAST SURGICAL HISTORY OF 2008 torn cartilage -- arthroscopy, left knee PAST SURGICAL HISTORY OF 2017 right hand ulnar artery aneurism repair. STRESS TEST 07/01/2018 negative STRESS TEST NUCLEAR 07/2019 negative Current Outpatient Medications on File Prior to Visit Medication Sig gabapentin (NEURONTIN) 800 mg tablet Take 1 tablet by mouth twice daily for 90 days. metFORMIN ER (GLUCOPHAGE XR) 500 mg 24 hr tablet Take 2 tablets by mouth twice daily. midodrine (PROAMATINE) 10 mg tablet Take 1 tablet by mouth three times daily. Per [facility] Amitriptyline HCl 150 mg tablet Take 1 tablet by mouth daily at bedtime. Amitriptyline HCl 150 mg tablet Take 1 tablet by mouth daily at bedtime. atorvastatin (LIPITOR) 80 mg tablet Take 1 tablet by mouth once daily. Managed by cardiology, Dr. Kern carvedilol (COREG) 3.125 mg tablet Take 1 tablet by mouth twice daily. clopidogrel (PLAVIX) 75 mg tablet Take 1 tablet by mouth once daily. Managed by [facility] omega-3 fatty acids 1,000 mg cap Take 2 capsules by mouth once daily. aspirin, enteric coated (ECOTRIN LOW STRENGTH) 81 mg EC tablet Take 1 tablet by mouth once daily. diphenhydrAMINE (BENADRYL) 25 mg capsule Take 1 capsule by mouth every 6 hours as needed. fluticasone (FLONASE) 50 mcg/actuation nasal spray Use 2 Sprays in each nostril once daily. Rinse mouth after use. nitroglycerin sublingual (NITROSTAT) 0.4 mg SL tablet Dissolve 1 tablet under the tongue every 5 minutes as needed for chest pain. blood sugar diagnostic (BLOOD GLUCOSE TEST) test strip Test blood sugar(s) 2 times daily. Dx: Type 2 DM - Uncontrolled E11.65 Insulin: No Blood Pressure Monitor kit 1 Each once daily. Blood Glucose Control High and Low (ACCU-CHEK MEGHANA CONTROL SOLN) soln Use as directed as indicated to check quality of test strips Blood-Glucose Meter monitoring kit Glucose Meter of Choice - Kit - Dx: Type 2 DM - Uncontrolled E11.65 Lancets lancets Test blood sugar(s) 2 times daily. Dx: Type 2 DM - Uncontrolled E11.65 Insulin: No No current facility-administered medications on file prior to visit. Social History Tobacco Use Smoking status: Never Smoker Smokeless tobacco: Former User Types: Chew Tobacco comment: 1 can of chewing tobacco every 3 days PT QUIT 2014 Vaping Use Vaping Use: Never used Substance Use Topics Alcohol use: No Drug use: No ALLERGIES Allergen Reactions Perfumes Other: See Comments sneezing Review of Systems: Constitutional: denies fever, + weight loss, loss of appetite ENT: denies loss of hearing, + vertigo (chronic), + tinnitus Vision: denies blurring vison, double vision/diplopia Dermatologic: denies rash Cardiopulmonary: denies + chest pain, palpitations Respiratory: denies + shortness of breath (with chest pain) GI: denies recent nausea, vomiting, diarrhea, constipation : denies incontinence Psych: denies depression, anxiety Sleep: + issues with sleeping (falling asleep) Heme: denies + easy bruising/bleeding Musculoskeletal: denies weakness, joint ache/pain Back/spine: denies + low back or + cervical pains Neuro: Denies + tremors, loss of feeling, + dizziness, seizure, + blackout, + paresthesia, facial paresthesia, facial weakness, difficulty in speech, slurring of words, dysarthria, dysphagia, memory loss, + headache Physical Exam: 02/07/22 0750 BP: 122/60 Pulse: 83 Resp: 18 Temp: 36.6 C (97.8 F) SpO2: 99% Weight: 78.9 kg (174 lb) Orthostatic VS: Laying 151/89, HR 88 Sitting 147/89, HR 86 Standing 104/71, HR 96 Patient is alert and in no distress. Dress is appropriate. Mood is appropriate Breathing appears regular and unstressed Neurologic examination: Cognitively intact. No deficits. No formal MMSE performed. CN: Pupils equal and reactive to light, extraocular movements intact with no nystagmus, face is symmetric with no facial droop, facial sensation intact bilaterally to light touch. V1-3, hearing intact bilaterally, symmetric evaluation of the soft palate, tongue is midline with no deviation, shoulder shrug is symmetric. Motor exam shows 5/5 strength symmetric through the upper and lower extremities in all groups tested. Sensory intact to light touch in all extremities. Vibratory sensation is intact and symmetric all extremities. Deep tendon reflexes are symmetric at the biceps, brachioradialis, triceps, patella, and achilles bilaterally. Negative Chau's bilaterally. Coordination: No dysmetria on finger to nose. No tremors noted. No drift seen. Shuffling gait, decreased arm swing on L. Good body turn though pt mildly off balance. Retropulsion on pull test. АННА of pronation and supination, finger and hand tapping intact. Toe tapping intact. Mild rigidity to BUE, bradykinesia. No tremors. Rises from chair without using arms. Labs/studies: MRI Brain 07/21/21: 1. Normal brain. 2. No acute or focal disease. CT Brain 11/02/21: Normal soft tissue structures. Normal calvarium. Normal size ventricles and extra-axial spaces for the patient''s age. Normal white matter tracts of the cerebral hemispheres. There are small punctate calcifications of the basal ganglia which are seen in the aging brain as a normal variant. Normal brainstem. Normal cerebellum. There is no intracranial hemorrhage. There are no findings of an acute ischemic infarction. Atherosclerotic calcification of the cavernous portions of the internal carotid arteries bilaterally. Normal visualized paranasal sinuses. _ IMPRESSION: Normal unenhanced CT scan of the brain. CT Brain 10/16/21: Normal soft tissue structures. Normal calvarium. Normal size ventricles and extra-axial spaces for the patient''s age. Normal white matter tracts of the cerebral hemispheres. There are small punctate calcifications of the basal ganglia which are seen in the aging brain as a normal variant. Normal brainstem. Normal cerebellum. There is no intracranial hemorrhage. There are no findings of an acute ischemic infarction. Normal visualized paranasal sinuses. IMPRESSION: Normal unenhanced CT scan of the brain. CT Cervical Spine 10/16/21: FINDINGS: Normal craniovertebral junction. Normal anterior atlantoaxial articulation. Normal odontoid process. There is straightening of the normal cervical lordosis. Normal vertebral bodies and posterior osseous elements. C2-3: Normal endplates. Normal disc height and morphology. Normal central canal and intervertebral neuroforamina. C3-4: Normal endplates. Normal disc height and morphology. Normal central canal and intervertebral neuroforamina. C4-5: Normal endplates. Normal disc height and morphology. Normal central canal and intervertebral neuroforamina. C5-6: Normal endplates. Normal disc height and morphology. Normal central canal and intervertebral neuroforamina. C6-7: Normal endplates. Normal disc height and morphology. Normal central canal and intervertebral neuroforamina. C7-T1: Normal endplates. Normal disc height and morphology. Normal central canal and intervertebral neuroforamina. Normal visualized soft tissue structures. _ IMPRESSION: Normal unenhanced CT examination of the cervical spine. US Carotid Arteries 10/31/21: IMPRESSION Compared to prior study of 06/11/2017, no significant change. RIGHT SIDE Common carotid artery: Plaque visualized without evidence of hemodynamically significant stenosis. Internal carotid artery: 40-59% stenosis. Vertebral artery: Patent and antegrade flow noted. LEFT SIDE Common carotid artery: Plaque visualized without evidence of hemodynamically significant stenosis. Internal carotid artery: 60-79% stenosis. Vertebral artery: Patent and antegrade flow noted. Assessment/Plan: R55 Syncope, unspecified syncope type (primary encounter diagnosis) I95.1 Orthostatic hypotension Comment: Patient presenting today for multiple syncopal episodes starting in October 2021. He has experienced four additional episodes since that time. Episodes can be preceded by a lightheaded feeling, tinnitus, or numbness to both legs and can last for up to 30 minutes. Notable hx of htn, hld, CAD, TIA, DM, COVID in 06/21, post traumatic headache Extensive workup has been completed thus far by PCP and cardiology including MRI of brain, CT brain, stress test, cardiac workup (recent echo completed in 07/22), and has received Loop Recorder. Cardiac cath scheduled for this upcoming Friday. 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 Previously noted to have low blood pressure during OV with PCP and has been adjusting BP medications. Has also been started on midodrine by cardiology. Note, had SE with use of fludrocortisone. Orthostatic VS assessed in office today with significant drop from sitting to standing. Pt reports feeling off balance and lightheaded during evaluation. Note, pt wearing compression stockings during assessment. Additionally on exam, pt noted to have shuffling gait and decreased L arm swing. Slight balance concern when turning and retropulsion on pull test. Taking these findings in addition to subjective report of voice and taste changes, balance concerns, as well as dream reenactment, concern for possible PD. Discussed possible medications used for PD, however, these medications may also exacerbate orthostatic concerns. At this time will await results of further cardiac testing scheduled for Friday02/11/22. Would also recommend continuing to follow up with cardiology for medication management and adjustment; currently on midodrine 10mg TID. May need to consider consult to autonomic clinic if no further improvement in pressure. In interim continue utilizing compression stockings and maintaining adequate hydration and nutrition (proteins and salts). R20.0 Facial numbness S09.90XS HX of injury of head, sequela G44.329 Chronic post-traumatic headache, not intractable Comment: Patient reporting baseline facial numbness since head injury in 1972. Numbness extends from the back of his neck, over his scalp, and down his face to the top of his lip. States he feels like he is wearing a hat. Has had imaging of the brain since this sensation began with most recent imaging being last year (note that imaging completed due to increased migraines). MRI of brain from 07/21/21 reviewed and unremarkable. Previously taking gabapentin 800mg BID as well as amitriptyline 150mg QHS without relief of symptoms. He reports that he has previously taken injectable medications and was following with Dr. Gold with pain management. Could consider use of Lyrica, however, given concern for episodes related to drop in BP will hold off on initiation of medications at this time. Can continue to follow with pain management as well. Jenna Jim APRN.MIGEL I spent a total of 60 minutes on the date of the service which included preparing to see the patient, [id number] patient care, completing clinical documentation, obtaining and/or reviewing separately obtained history, performing a medically appropriate examination and counseling and educating the patient/family/caregiver. documented in this encounter [facility] 01-30-2022 Miscellaneous Notes The following approved medication requests have been transmitted electronically. Signed Prescriptions Disp Refills gabapentin (NEURONTIN) 800 mg tablet 180 tablet 0 Sig: Take 1 tablet by mouth twice daily for 90 days. JOANNA: No Authorizing Provider: NADIR GRADY metFORMIN ER (GLUCOPHAGE XR) 500 mg 24 hr tablet 360 tablet 1 Sig: Take 2 tablets by mouth twice daily. JOANNA: No Authorizing Provider: NADIR GRADY MD Patient has been identified by name and date of : Yes Pharmacy phones for refill(s): Pending Prescriptions Disp Refills GABAPENTIN 800 MG TABLET 60 tablet 2 Sig: Take 1 tablet by mouth twice daily for 90 days. JOANNA: No METFORMIN ER 500 MG TABLET,EXTENDED RELEASE 24 HR 360 tablet 1 Sig: Take 2 tablets by mouth twice daily. JOANNA: No Date of last office visit in primary care: 11/08/2021, has appt 05/13/2022 Last 2 Encounter Wt Readings: Date: Wt: 11/08/2021 80.3 kg (177 lb) 10/25/2021 77.6 kg (171 lb) Previous labs/tests for medication: Diabetes: Hemoglobin A1C (%) Date Value 11/08/2021 7.1 11/02/2021 7.0 02/14/2021 6.8 10/09/2020 9.0 Please advise. Thank you. Madhuri Chapa LPN documented in this encounter [facility] 01-24-2022 Miscellaneous Notes Tian with [facility] called and requesting copy of last OV for pt. Pt was identified by name and date of . Faxed to [phone]. Selma Echevarrai LPN documented in this encounter [facility] 01-04-2022 History of Present illness Narrative Scan on 01/04/2022 9:59 AM by External Provider: Consultation - Cardiology documented in this encounter [facility] 12-13-2021 Miscellaneous Notes PharmJevon spoke with Frida. She states she was checking his med list at cardiology office and noticed some discrepancies between med lists. She stated gabapentin was on cardiology med list but was NOT on [facility] med list. Also stated amlodipine and lisinopril were on [facility] med list but were NOT on cardiology med list. Frida confirmed patient IS taking gabapentin and he is NOT taking amlodipine or lisinopril. PharmJevon reviewed med list which is accurate. Appears Frida was looking at an outdated med list. Frida appreciated the information. She states patient just had a loop recorder inserted in his chest. She plans to inform PCP so a chart can be made in his note. Frida states patient is doing well right now with blood sugars. Will reach out in future if needs additional assistance. Karen Piper PharmD, [facility] Primary Care Clinical Pharmacist Rhea HARR[facility] Kai called Frida but unable to reach, LEFT MESSAGE ON MACHINE to return call to office. Karen Piper PharmD, [facility] Primary Care Clinical Pharmacist Rhea HARR[facility] Patient's sister Frida calls and is asking if Karen could give her call. Frida states that Karen had given her a list of medications that patient should be taking and Dr. Vieira's office gave her a list. Frida states that lists don't match up and she would like to speak with Karen in regards to this. Please review and advise, Beverly Rawls RN documented in this encounter [facility] 11-22-2021 Miscellaneous Notes Patient notified of results, verbalizes understanding of instructions. Paula Donaldson LPN Let patient know urine and blood protein studies were normal. Bleeding studies were normal. BMP was ok except for elevated blood sugar. documented in this encounter [facility] 06-29-2021 Miscellaneous Notes Patient notified and verbalized understanding. Please call patient and let him know his CT is negative for blood clot. Does shows ground glass opacities consistent with COVID-19 pneumonia. Does show some consolidation so I will cove with antibiotics. This is a two antibiotic regime. 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 Medications sent to [facility] pharmacy in [place]. Thanks, Ade Garcia APRN.MIGEL documented in this encounter [facility] documented as of this encounter (statuses as of 12/03/2021) [facility] History of Past illness Narrative* Problem Noted Date Resolved Date Well adult exam 10/03/2016 04/12/2020 Overview: last done: 07/16/19. does not want colonoscopies. Other physical therapy 08/16/2010 0 Sprain of neck 07/30/2010 08/30/2010 Unspecified pruritic disorder 03/02/2009 Cervicalgia 10/16/2006 10/30/2018 Hyperlipidemia 08/04/2015 documented as of this encounter (statuses as of 12/13/2021) [facility] History of Past illness Narrative* Problem Noted Date Resolved Date Well adult exam 10/03/2016 04/12/2020 Overview: last done: 07/16/19. does not want colonoscopies. Other physical therapy 08/16/2010 0 Sprain of neck 07/30/2010 08/30/2010 Unspecified pruritic disorder 03/02/2009 Cervicalgia 10/16/2006 10/30/2018 Hyperlipidemia 08/04/2015 documented as of this encounter (statuses as of 01/07/2022) [facility] of Past illness Narrative* Problem Noted Date Resolved Date Well adult exam 10/03/2016 04/12/2020 Overview: last done: 07/16/19. does not want colonoscopies. Other physical therapy 08/16/2010 0 Sprain of neck 07/30/2010 08/30/2010 Unspecified pruritic disorder 03/02/2009 Cervicalgia 10/16/2006 10/30/2018 Hyperlipidemia 08/04/2015 documented as of this encounter (statuses as of 01/24/2022) [facility] of Past illness Narrative* Problem Noted Date Resolved Date Well adult exam 10/03/2016 04/12/2020 Overview: last done: 07/16/19. does not want colonoscopies. Other physical therapy 08/16/2010 0 Sprain of neck 07/30/2010 08/30/2010 Unspecified pruritic disorder 03/02/2009 Cervicalgia 10/16/2006 10/30/2018 Hyperlipidemia 08/04/2015 documented as of this encounter (statuses as of 01/30/2022) [facility] History of Past illness Narrative* Problem Noted Date Resolved Date Well adult exam 10/03/2016 04/12/2020 Overview: last done: 07/16/19. does not want colonoscopies. Other physical therapy 08/16/2010 0 Sprain of neck 07/30/2010 08/30/2010 Unspecified pruritic disorder 03/02/2009 Cervicalgia 10/16/2006 10/30/2018 Hyperlipidemia 08/04/2015 documented as of this encounter (statuses as of 01/31/2022) [facility] History of Past illness Narrative* Problem Noted Date Resolved Date Well adult exam 10/03/2016 04/12/2020 Overview: last done: 07/16/19. does not want colonoscopies. Other physical therapy 08/16/2010 0 Sprain of neck 07/30/2010 08/30/2010 Unspecified pruritic disorder 03/02/2009 Cervicalgia 10/16/2006 10/30/2018 Hyperlipidemia 08/04/2015 documented as of this encounter (statuses as of 02/11/2022) [facility] of Past illness Narrative* Problem Noted Date Resolved Date Well adult exam 10/03/2016 04/12/2020 Overview: last done: 07/16/19. does not want colonoscopies. Other physical therapy 08/16/2010 0 Sprain of neck 07/30/2010 08/30/2010 Unspecified pruritic disorder 03/02/2009 Cervicalgia 10/16/2006 10/30/2018 Hyperlipidemia 08/04/2015 documented as of this encounter (statuses as of 02/22/2022) [facility] of Past illness Narrative* Problem Noted Date Resolved Date Well adult exam 10/03/2016 04/12/2020 Overview: last done: 07/16/19. does not want colonoscopies. Other physical therapy 08/16/2010 0 Sprain of neck 07/30/2010 08/30/2010 Unspecified pruritic disorder 03/02/2009 Cervicalgia 10/16/2006 10/30/2018 Hyperlipidemia 08/04/2015 documented as of this encounter (statuses as of 02/26/2022) [facility] of Past illness Narrative* Problem Noted Date Resolved Date Well adult exam 10/03/2016 04/12/2020 Overview: last done: 07/16/19. does not want colonoscopies. Other physical therapy 08/16/2010 0 Sprain of neck 07/30/2010 08/30/2010 Unspecified pruritic disorder 03/02/2009 Cervicalgia 10/16/2006 10/30/2018 Hyperlipidemia 08/04/2015 documented as of this encounter (statuses as of 03/19/2022) [facility] of Past illness Narrative* Problem Noted Date Resolved Date Well adult exam 10/03/2016 04/12/2020 Overview: last done: 07/16/19. does not want colonoscopies. Other physical therapy 08/16/2010 0 Sprain of neck 07/30/2010 08/30/2010 Unspecified pruritic disorder 03/02/2009 Cervicalgia 10/16/2006 10/30/2018 Hyperlipidemia 08/04/2015 documented as of this encounter (statuses as of 03/20/2022) [facility] of Past illness Narrative* Problem Noted Date Resolved Date Well adult exam 10/03/2016 04/12/2020 Overview: last done: 07/16/19. does not want colonoscopies. Other physical therapy 08/16/2010 0 Sprain of neck 07/30/2010 08/30/2010 Unspecified pruritic disorder 03/02/2009 Cervicalgia 10/16/2006 10/30/2018 Hyperlipidemia 08/04/2015 documented as of this encounter (statuses as of 03/20/2022) [facility] of Past illness Narrative* Problem Noted Date Resolved Date Well adult exam 10/03/2016 04/12/2020 Overview: last done: 07/16/19. does not want colonoscopies. Other physical therapy 08/16/2010 0 Sprain of neck 07/30/2010 08/30/2010 Unspecified pruritic disorder 03/02/2009 Cervicalgia 10/16/2006 10/30/2018 Hyperlipidemia 08/04/2015 documented as of this encounter (statuses as of 03/25/2022) [facility] of Past illness Narrative* Problem Noted Date Resolved Date Well adult exam 10/03/2016 04/12/2020 Overview: last done: 07/16/19. does not want colonoscopies. Other physical therapy 08/16/2010 0 Sprain of neck 07/30/2010 08/30/2010 Unspecified pruritic disorder 03/02/2009 Cervicalgia 10/16/2006 10/30/2018 Hyperlipidemia 08/04/2015 documented as of this encounter (statuses as of 04/04/2022) [facility] of Past illness Narrative* Problem Noted Date Resolved Date Well adult exam 10/03/2016 04/12/2020 Overview: last done: 07/16/19. does not want colonoscopies. Other physical therapy 08/16/2010 0 Sprain of neck 07/30/2010 08/30/2010 Unspecified pruritic disorder 03/02/2009 Cervicalgia 10/16/2006 10/30/2018 Hyperlipidemia 08/04/2015 documented as of this encounter (statuses as of 04/09/2022) [facility] of Past illness Narrative* Problem Noted Date Resolved Date Well adult exam 10/03/2016 04/12/2020 Overview: last done: 07/16/19. does not want colonoscopies. Other physical therapy 08/16/2010 0 Sprain of neck 07/30/2010 08/30/2010 Unspecified pruritic disorder 03/02/2009 Cervicalgia 10/16/2006 10/30/2018 Hyperlipidemia 08/04/2015 documented as of this encounter (statuses as of 04/19/2022) [facility] of Past illness Narrative* Problem Noted Date Resolved Date Well adult exam 10/03/2016 04/12/2020 Overview: last done: 07/16/19. does not want colonoscopies. Other physical therapy 08/16/2010 0 Sprain of neck 07/30/2010 08/30/2010 Unspecified pruritic disorder 03/02/2009 Cervicalgia 10/16/2006 10/30/2018 Hyperlipidemia 08/04/2015 documented as of this encounter (statuses as of 04/26/2022) [facility] of Past illness Narrative* Problem Noted Date Resolved Date Well adult exam 10/03/2016 04/12/2020 Overview: last done: 07/16/19. does not want colonoscopies. Other physical therapy 08/16/2010 0 Sprain of neck 07/30/2010 08/30/2010 Unspecified pruritic disorder 03/02/2009 Cervicalgia 10/16/2006 10/30/2018 Hyperlipidemia 08/04/2015 documented as of this encounter (statuses as of 04/28/2022) [facility] of Past illness Narrative* Problem Noted Date Resolved Date Well adult exam 10/03/2016 04/12/2020 Overview: last done: 07/16/19. does not want colonoscopies. Other physical therapy 08/16/2010 0 Sprain of neck 07/30/2010 08/30/2010 Unspecified pruritic disorder 03/02/2009 Cervicalgia 10/16/2006 10/30/2018 Hyperlipidemia 08/04/2015 documented as of this encounter (statuses as of 04/30/2022) [facility] of Past illness Narrative* Problem Noted Date Resolved Date Well adult exam 10/03/2016 04/12/2020 Overview: last done: 07/16/19. does not want colonoscopies. Other physical therapy 08/16/2010 0 Sprain of neck 07/30/2010 08/30/2010 Unspecified pruritic disorder 03/02/2009 Cervicalgia 10/16/2006 10/30/2018 Hyperlipidemia 08/04/2015 documented as of this encounter (statuses as of 05/02/2022) [facility] of Past illness Narrative* Problem Noted Date Resolved Date Well adult exam 10/03/2016 04/12/2020 Overview: last done: 07/16/19. does not want colonoscopies. Other physical therapy 08/16/2010 0 Sprain of neck 07/30/2010 08/30/2010 Unspecified pruritic disorder 03/02/2009 Cervicalgia 10/16/2006 10/30/2018 Hyperlipidemia 08/04/2015 documented as of this encounter (statuses as of 05/03/2022) [facility] of Past illness Narrative* Problem Noted Date Resolved Date Well adult exam 10/03/2016 04/12/2020 Overview: last done: 07/16/19. does not want colonoscopies. Other physical therapy 08/16/2010 0 Sprain of neck 07/30/2010 08/30/2010 Unspecified pruritic disorder 03/02/2009 Cervicalgia 10/16/2006 10/30/2018 Hyperlipidemia 08/04/2015 documented as of this encounter (statuses as of 05/13/2022) [facility] of Past illness Narrative* Problem Noted Date Resolved Date Well adult exam 10/03/2016 04/12/2020 Overview: last done: 07/16/19. does not want colonoscopies. Other physical therapy 08/16/2010 0 Sprain of neck 07/30/2010 08/30/2010 Unspecified pruritic disorder 03/02/2009 Cervicalgia 10/16/2006 10/30/2018 Hyperlipidemia 08/04/2015 documented as of this encounter (statuses as of 05/15/2022) [facility] of Past illness Narrative* Problem Noted Date Resolved Date Well adult exam 10/03/2016 04/12/2020 Overview: last done: 07/16/19. does not want colonoscopies. Other physical therapy 08/16/2010 0 Sprain of neck 07/30/2010 08/30/2010 Unspecified pruritic disorder 03/02/2009 Cervicalgia 10/16/2006 10/30/2018 Hyperlipidemia 08/04/2015 documented as of this encounter (statuses as of 05/25/2022) [facility] of Past illness Narrative* Problem Noted Date Resolved Date Well adult exam 10/03/2016 04/12/2020 Overview: last done: 07/16/19. does not want colonoscopies. Other physical therapy 08/16/2010 0 Sprain of neck 07/30/2010 08/30/2010 Unspecified pruritic disorder 03/02/2009 Cervicalgia 10/16/2006 10/30/2018 Hyperlipidemia 08/04/2015 documented as of this encounter (statuses as of 05/28/2022) [facility] of Past illness Narrative* Problem Noted Date Resolved Date Well adult exam 10/03/2016 04/12/2020 Overview: last done: 07/16/19. does not want colonoscopies. Other physical therapy 08/16/2010 0 Sprain of neck 07/30/2010 08/30/2010 Unspecified pruritic disorder 03/02/2009 Cervicalgia 10/16/2006 10/30/2018 Hyperlipidemia 08/04/2015 documented as of this encounter (statuses as of 05/29/2022) [facility] of Past illness Narrative* Problem Noted Date Resolved Date Well adult exam 10/03/2016 04/12/2020 Overview: last done: 07/16/19. does not want colonoscopies. Other physical therapy 08/16/2010 0 Sprain of neck 07/30/2010 08/30/2010 Unspecified pruritic disorder 03/02/2009 Cervicalgia 10/16/2006 10/30/2018 Hyperlipidemia 08/04/2015 documented as of this encounter (statuses as of 05/30/2022) [facility] of Past illness Narrative* Problem Noted Date Resolved Date Well adult exam 10/03/2016 04/12/2020 Overview: last done: 07/16/19. does not want colonoscopies. Other physical therapy 08/16/2010 0 Sprain of neck 07/30/2010 08/30/2010 Unspecified pruritic disorder 03/02/2009 Cervicalgia 10/16/2006 10/30/2018 Hyperlipidemia 08/04/2015 documented as of this encounter (statuses as of 06/20/2022) [facility] of Past illness Narrative* Problem Noted Date Resolved Date Well adult exam 10/03/2016 04/12/2020 Overview: last done: 07/16/19. does not want colonoscopies. Other physical therapy 08/16/2010 0 Sprain of neck 07/30/2010 08/30/2010 Unspecified pruritic disorder 03/02/2009 Cervicalgia 10/16/2006 10/30/2018 Hyperlipidemia 08/04/2015 documented as of this encounter (statuses as of 06/25/2022) [facility] Past [facility] Narrative* Problem Noted Date Resolved Date Well adult exam 10/03/2016 04/12/2020 Overview: last done: 07/16/19. does not want colonoscopies. Other physical therapy 08/16/2010 0 Sprain of neck 07/30/2010 08/30/2010 Unspecified pruritic disorder 03/02/2009 Cervicalgia 10/16/2006 10/30/2018 Hyperlipidemia 08/04/2015 documented as of this encounter (statuses as of 06/25/2022) [facility] History of Past illness Narrative* Problem Noted Date Resolved Date Well adult exam 10/03/2016 04/12/2020 Overview: last done: 07/16/19. does not want colonoscopies. Other physical therapy 08/16/2010 0 Sprain of neck 07/30/2010 08/30/2010 Unspecified pruritic disorder 03/02/2009 Cervicalgia 10/16/2006 10/30/2018 Hyperlipidemia 08/04/2015 documented as of this encounter (statuses as of 06/26/2022) [facility] History of Past illness Narrative* Problem Noted Date Resolved Date Well adult exam 10/03/2016 04/12/2020 Overview: last done: 07/16/19. does not want colonoscopies. Other physical therapy 08/16/2010 0 Sprain of neck 07/30/2010 08/30/2010 Unspecified pruritic disorder 03/02/2009 Cervicalgia 10/16/2006 10/30/2018 Hyperlipidemia 08/04/2015 documented as of this encounter (statuses as of 06/27/2022) [facility] History of Past illness Narrative* Problem Noted Date Resolved Date Well adult exam 10/03/2016 04/12/2020 Overview: last done: 07/16/19. does not want colonoscopies. Other physical therapy 08/16/2010 0 Sprain of neck 07/30/2010 08/30/2010 Unspecified pruritic disorder 03/02/2009 Cervicalgia 10/16/2006 10/30/2018 Hyperlipidemia 08/04/2015 documented as of this encounter (statuses as of 07/02/2022) [facility] History of Past illness Narrative* Problem Noted Date Resolved Date Well adult exam 10/03/2016 04/12/2020 Overview: last done: 07/16/19. does not want colonoscopies. Other physical therapy 08/16/2010 0 Sprain of neck 07/30/2010 08/30/2010 Unspecified pruritic disorder 03/02/2009 Cervicalgia 10/16/2006 10/30/2018 Hyperlipidemia 08/04/2015 documented as of this encounter (statuses as of 07/02/2022) [facility] History of Past illness Narrative* Problem Noted Date Resolved Date Well adult exam 10/03/2016 04/12/2020 Overview: last done: 07/16/19. does not want colonoscopies. Other physical therapy 08/16/2010 0 Sprain of neck 07/30/2010 08/30/2010 Unspecified pruritic disorder 03/02/2009 Cervicalgia 10/16/2006 10/30/2018 Hyperlipidemia 08/04/2015 documented as of this encounter (statuses as of 07/05/2022) [facility] History of Past illness Narrative* Problem Noted Date Resolved Date Well adult exam 10/03/2016 04/12/2020 Overview: last done: 07/16/19. does not want colonoscopies. Other physical therapy 08/16/2010 0 Sprain of neck 07/30/2010 08/30/2010 Unspecified pruritic disorder 03/02/2009 Cervicalgia 10/16/2006 10/30/2018 Hyperlipidemia 08/04/2015 documented as of this encounter (statuses as of 07/10/2022) [facility] History of Past illness Narrative* Problem Noted Date Resolved Date Well adult exam 10/03/2016 04/12/2020 Overview: last done: 07/16/19. does not want colonoscopies. Other physical therapy 08/16/2010 0 Sprain of neck 07/30/2010 08/30/2010 Unspecified pruritic disorder 03/02/2009 Cervicalgia 10/16/2006 10/30/2018 Hyperlipidemia 08/04/2015 documented as of this encounter (statuses as of 07/10/2022) [facility] History of Past illness Narrative* Problem Noted Date Resolved Date Well adult exam 10/03/2016 04/12/2020 Overview: last done: 07/16/19. does not want colonoscopies. Other physical therapy 08/16/2010 0 Sprain of neck 07/30/2010 08/30/2010 Unspecified pruritic disorder 03/02/2009 Cervicalgia 10/16/2006 10/30/2018 Hyperlipidemia 08/04/2015 documented as of this encounter (statuses as of 07/11/2022) [facility] History of Past illness Narrative* Problem Noted Date Resolved Date Well adult exam 10/03/2016 04/12/2020 Overview: last done: 07/16/19. does not want colonoscopies. Other physical therapy 08/16/2010 0 Sprain of neck 07/30/2010 08/30/2010 Unspecified pruritic disorder 03/02/2009 Cervicalgia 10/16/2006 10/30/2018 Hyperlipidemia 08/04/2015 documented as of this encounter (statuses as of 07/12/2022) [facility] History of Past illness Narrative* Problem Noted Date Resolved Date Well adult exam 10/03/2016 04/12/2020 Overview: last done: 07/16/19. does not want colonoscopies. Other physical therapy 08/16/2010 0 Sprain of neck 07/30/2010 08/30/2010 Unspecified pruritic disorder 03/02/2009 Cervicalgia 10/16/2006 10/30/2018 Hyperlipidemia 08/04/2015 documented as of this encounter (statuses as of 07/29/2022) [facility] History of Past illness Narrative* Problem Noted Date Resolved Date Well adult exam 10/03/2016 04/12/2020 Overview: last done: 07/16/19. does not want colonoscopies. Other physical therapy 08/16/2010 0 Sprain of neck 07/30/2010 08/30/2010 Unspecified pruritic disorder 03/02/2009 Cervicalgia 10/16/2006 10/30/2018 Hyperlipidemia 08/04/2015 documented as of this encounter (statuses as of 07/30/2022) [facility] History of Past illness Narrative* Problem Noted Date Resolved Date Well adult exam 10/03/2016 04/12/2020 Overview: last done: 07/16/19. does not want colonoscopies. Other physical therapy 08/16/2010 0 Sprain of neck 07/30/2010 08/30/2010 Unspecified pruritic disorder 03/02/2009 Cervicalgia 10/16/2006 10/30/2018 Hyperlipidemia 08/04/2015 documented as of this encounter (statuses as of 08/05/2022) [facility] History of Past illness Narrative* Problem Noted Date Resolved Date Well adult exam 10/03/2016 04/12/2020 Overview: last done: 07/16/19. does not want colonoscopies. Other physical therapy 08/16/2010 0 Sprain of neck 07/30/2010 08/30/2010 Unspecified pruritic disorder 03/02/2009 Cervicalgia 10/16/2006 10/30/2018 Hyperlipidemia 08/04/2015 documented as of this encounter (statuses as of 08/07/2022) [facility] History of Past illness Narrative* Problem Noted Date Resolved Date Well adult exam 10/03/2016 04/12/2020 Overview: last done: 07/16/19. does not want colonoscopies. Other physical therapy 08/16/2010 0 Sprain of neck 07/30/2010 08/30/2010 Unspecified pruritic disorder 03/02/2009 Cervicalgia 10/16/2006 10/30/2018 Hyperlipidemia 08/04/2015 documented as of this encounter (statuses as of 08/23/2022) [facility] History of Past illness Narrative* Problem Noted Date Resolved Date Well adult exam 10/03/2016 04/12/2020 Overview: last done: 07/16/19. does not want colonoscopies. Other physical therapy 08/16/2010 0 Sprain of neck 07/30/2010 08/30/2010 Unspecified pruritic disorder 03/02/2009 Cervicalgia 10/16/2006 10/30/2018 Hyperlipidemia 08/04/2015 documented as of this encounter (statuses as of 08/23/2022) [facility] History of Past illness Narrative* Problem Noted Date Resolved Date Well adult exam 10/03/2016 04/12/2020 Overview: last done: 07/16/19. does not want colonoscopies. Other physical therapy 08/16/2010 0 Sprain of neck 07/30/2010 08/30/2010 Unspecified pruritic disorder 03/02/2009 Cervicalgia 10/16/2006 10/30/2018 Hyperlipidemia 08/04/2015 documented as of this encounter (statuses as of 09/03/2022) [facility] History of Past illness Narrative* Problem Noted Date Resolved Date Well adult exam 10/03/2016 04/12/2020 Overview: last done: 07/16/19. does not want colonoscopies. Other physical therapy 08/16/2010 0 Sprain of neck 07/30/2010 08/30/2010 Unspecified pruritic disorder 03/02/2009 Cervicalgia 10/16/2006 10/30/2018 Hyperlipidemia 08/04/2015 documented as of this encounter (statuses as of 09/04/2022) [facility] History of Past illness Narrative* Problem Noted Date Resolved Date Well adult exam 10/03/2016 04/12/2020 Overview: last done: 07/16/19. does not want colonoscopies. Other physical therapy 08/16/2010 0 Sprain of neck 07/30/2010 08/30/2010 Unspecified pruritic disorder 03/02/2009 Cervicalgia 10/16/2006 10/30/2018 Hyperlipidemia 08/04/2015 documented as of this encounter (statuses as of 09/06/2022) [facility] History of Past illness Narrative* Problem Noted Date Resolved Date Well adult exam 10/03/2016 04/12/2020 Overview: last done: 07/16/19. does not want colonoscopies. Other physical therapy 08/16/2010 0 Sprain of neck 07/30/2010 08/30/2010 Unspecified pruritic disorder 03/02/2009 Cervicalgia 10/16/2006 10/30/2018 Hyperlipidemia 08/04/2015 documented as of this encounter (statuses as of 09/24/2022) [facility] History of Past illness Narrative* Problem Noted Date Resolved Date Well adult exam 10/03/2016 04/12/2020 Overview: last done: 07/16/19. does not want colonoscopies. Other physical therapy 08/16/2010 0 Sprain of neck 07/30/2010 08/30/2010 Unspecified pruritic disorder 03/02/2009 Cervicalgia 10/16/2006 10/30/2018 Hyperlipidemia 08/04/2015 documented as of this encounter (statuses as of 09/24/2022) [facility] History of Past illness Narrative* Problem Noted Date Resolved Date Well adult exam 10/03/2016 04/12/2020 Overview: last done: 07/16/19. does not want colonoscopies. Other physical therapy 08/16/2010 0 Sprain of neck 07/30/2010 08/30/2010 Unspecified pruritic disorder 03/02/2009 Cervicalgia 10/16/2006 10/30/2018 Hyperlipidemia 08/04/2015 documented as of this encounter (statuses as of 09/24/2022) [facility] History of Past illness Narrative* Problem Noted Date Resolved Date Well adult exam 10/03/2016 04/12/2020 Overview: last done: 07/16/19. does not want colonoscopies. Other physical therapy 08/16/2010 0 Sprain of neck 07/30/2010 08/30/2010 Unspecified pruritic disorder 03/02/2009 Cervicalgia 10/16/2006 10/30/2018 Hyperlipidemia 08/04/2015 documented as of this encounter (statuses as of 10/02/2022) [facility] History of Past illness Narrative* Problem Noted Date Resolved Date Well adult exam 10/03/2016 04/12/2020 Overview: last done: 07/16/19. does not want colonoscopies. Other physical therapy 08/16/2010 0 Sprain of neck 07/30/2010 08/30/2010 Unspecified pruritic disorder 03/02/2009 Cervicalgia 10/16/2006 10/30/2018 Hyperlipidemia 08/04/2015 documented as of this encounter (statuses as of 10/08/2022) [facility] History of Past illness Narrative* Problem Noted Date Resolved Date Well adult exam 10/03/2016 04/12/2020 Overview: last done: 07/16/19. does not want colonoscopies. Other physical therapy 08/16/2010 0 Sprain of neck 07/30/2010 08/30/2010 Unspecified pruritic disorder 03/02/2009 Cervicalgia 10/16/2006 10/30/2018 Hyperlipidemia 08/04/2015 documented as of this encounter (statuses as of 10/15/2022) [facility] History of Past illness Narrative* Problem Noted Date Resolved Date Well adult exam 10/03/2016 04/12/2020 Overview: last done: 07/16/19. does not want colonoscopies. Other physical therapy 08/16/2010 0 Sprain of neck 07/30/2010 08/30/2010 Unspecified pruritic disorder 03/02/2009 Cervicalgia 10/16/2006 10/30/2018 Hyperlipidemia 08/04/2015 documented as of this encounter (statuses as of 10/24/2022) [facility] History of Past illness Narrative* Problem Noted Date Resolved Date Well adult exam 10/03/2016 04/12/2020 Overview: last done: 07/16/19. does not want colonoscopies. Other physical therapy 08/16/2010 0 Sprain of neck 07/30/2010 08/30/2010 Unspecified pruritic disorder 03/02/2009 Cervicalgia 10/16/2006 10/30/2018 Hyperlipidemia 08/04/2015 documented as of this encounter (statuses as of 11/05/2022) [facility] History of Past illness Narrative* Problem Noted Date Resolved Date Well adult exam 10/03/2016 04/12/2020 Overview: last done: 07/16/19. does not want colonoscopies. Other physical therapy 08/16/2010 0 Sprain of neck 07/30/2010 08/30/2010 Unspecified pruritic disorder 03/02/2009 Cervicalgia 10/16/2006 10/30/2018 Hyperlipidemia 08/04/2015 documented as of this encounter (statuses as of 11/05/2022) [facility] History of Past illness Narrative* Problem Noted Date Resolved Date Well adult exam 10/03/2016 04/12/2020 Overview: last done: 07/16/19. does not want colonoscopies. Other physical therapy 08/16/2010 0 Sprain of neck 07/30/2010 08/30/2010 Unspecified pruritic disorder 03/02/2009 Cervicalgia 10/16/2006 10/30/2018 Hyperlipidemia 08/04/2015 documented as of this encounter (statuses as of 11/12/2022) [facility] History of Past illness Narrative* Problem Noted Date Resolved Date Well adult exam 10/03/2016 04/12/2020 Overview: last done: 07/16/19. does not want colonoscopies. Other physical therapy 08/16/2010 0 Sprain of neck 07/30/2010 08/30/2010 Unspecified pruritic disorder 03/02/2009 Cervicalgia 10/16/2006 10/30/2018 Hyperlipidemia 08/04/2015 documented as of this encounter (statuses as of 11/14/2022) [facility] History of Past illness Narrative* Problem Noted Date Resolved Date Well adult exam 10/03/2016 04/12/2020 Overview: last done: 07/16/19. does not want colonoscopies. Other physical therapy 08/16/2010 0 Sprain of neck 07/30/2010 08/30/2010 Unspecified pruritic disorder 03/02/2009 Cervicalgia 10/16/2006 10/30/2018 Hyperlipidemia 08/04/2015 documented as of this encounter (statuses as of 11/21/2022) [facility] History of Past illness Narrative* Problem Noted Date Resolved Date Well adult exam 10/03/2016 04/12/2020 Overview: last done: 07/16/19. does not want colonoscopies. Other physical therapy 08/16/2010 0 Sprain of neck 07/30/2010 08/30/2010 Unspecified pruritic disorder 03/02/2009 Cervicalgia 10/16/2006 10/30/2018 Hyperlipidemia 08/04/2015 documented as of this encounter (statuses as of 11/28/2022) [facility] History of Past illness Narrative* Problem Noted Date Resolved Date Well adult exam 10/03/2016 04/12/2020 Overview: last done: 07/16/19. does not want colonoscopies. Other physical therapy 08/16/2010 0 Sprain of neck 07/30/2010 08/30/2010 Unspecified pruritic disorder 03/02/2009 Cervicalgia 10/16/2006 10/30/2018 Hyperlipidemia 08/04/2015 documented as of this encounter (statuses as of 11/29/2022) [facility] History of Past illness Narrative* Problem Noted Date Resolved Date Well adult exam 10/03/2016 04/12/2020 Overview: last done: 07/16/19. does not want colonoscopies. Other physical therapy 08/16/2010 0 Sprain of neck 07/30/2010 08/30/2010 Unspecified pruritic disorder 03/02/2009 Cervicalgia 10/16/2006 10/30/2018 Hyperlipidemia 08/04/2015 documented as of this encounter (statuses as of 01/08/2023) [facility] History of Past illness Narrative* Problem Noted Date Resolved Date Well adult exam 10/03/2016 04/12/2020 Overview: last done: 07/16/19. does not want colonoscopies. Other physical therapy 08/16/2010 0 Sprain of neck 07/30/2010 08/30/2010 Unspecified pruritic disorder 03/02/2009 Cervicalgia 10/16/2006 10/30/2018 Hyperlipidemia 08/04/2015 documented as of this encounter (statuses as of 02/04/2023) [facility] History of Past illness Narrative* Problem Noted Date Resolved Date Well adult exam 10/03/2016 04/12/2020 Overview: last done: 07/16/19. does not want colonoscopies. Other physical therapy 08/16/2010 0 Sprain of neck 07/30/2010 08/30/2010 Unspecified pruritic disorder 03/02/2009 Cervicalgia 10/16/2006 10/30/2018 Hyperlipidemia 08/04/2015 documented as of this encounter (statuses as of 02/24/2023) [facility] History of Past illness Narrative* Problem Noted Date Diagnosed Date Resolved Date Well adult exam 10/03/2016 04/12/2020 Overview: last done: 07/16/19. does not want colonoscopies. Other physical therapy 08/16/201008/30 Sprain of neck 07/30/2010 08/30/2010 Unspecified pruritic disorder 03/02/2009 04/12/2020 Cervicalgia 10/16/2006 10/30/2018 Hyperlipidemia 08/04/2015 documented as of this encounter (statuses as of 03/10/2023) [facility] History of Past illness Narrative* Problem Noted Date Diagnosed Date Resolved Date Well adult exam 10/03/2016 04/12/2020 Overview: last done: 07/16/19. does not want colonoscopies. Other physical therapy 08/16/201008/30 Sprain of neck 07/30/2010 08/30/2010 Unspecified pruritic disorder 03/02/2009 04/12/2020 Cervicalgia 10/16/2006 10/30/2018 Hyperlipidemia 08/04/2015 documented as of this encounter (statuses as of 04/01/2023) [facility] History of Past illness Narrative* Problem Noted Date Diagnosed Date Resolved Date Well adult exam 10/03/2016 04/12/2020 Overview: last done: 07/16/19. does not want colonoscopies. Other physical therapy 08/16/201008/30 Sprain of neck 07/30/2010 08/30/2010 Unspecified pruritic disorder 03/02/2009 04/12/2020 Cervicalgia 10/16/2006 10/30/2018 Hyperlipidemia 08/04/2015 documented as of this encounter (statuses as of 04/02/2023) [facility] History of Past illness Narrative* Problem Noted Date Diagnosed Date Resolved Date Well adult exam 10/03/2016 04/12/2020 Overview: last done: 07/16/19. does not want colonoscopies. Other physical therapy 08/16/201008/30 Sprain of neck 07/30/2010 08/30/2010 Unspecified pruritic disorder 03/02/2009 04/12/2020 Cervicalgia 10/16/2006 10/30/2018 Hyperlipidemia 08/04/2015 documented as of this encounter (statuses as of 04/03/2023) [facility] History of Past illness Narrative* Problem Noted Date Diagnosed Date Resolved Date Well adult exam 10/03/2016 04/12/2020 Overview: last done: 07/16/19. does not want colonoscopies. Other physical therapy 08/16/201008/30 Sprain of neck 07/30/2010 08/30/2010 Unspecified pruritic disorder 03/02/2009 04/12/2020 Cervicalgia 10/16/2006 10/30/2018 Hyperlipidemia 08/04/2015 documented as of this encounter (statuses as of 04/05/2023) [facility] History of Past illness Narrative* Problem Noted Date Diagnosed Date Resolved Date Well adult exam 10/03/2016 04/12/2020 Overview: last done: 07/16/19. does not want colonoscopies. Other physical therapy 08/16/201008/30 Sprain of neck 07/30/2010 08/30/2010 Unspecified pruritic disorder 03/02/2009 04/12/2020 Cervicalgia 10/16/2006 10/30/2018 Hyperlipidemia 08/04/2015 documented as of this encounter (statuses as of 04/12/2023) [facility] History of Past illness Narrative* Problem Noted Date Diagnosed Date Resolved Date Well adult exam 10/03/2016 04/12/2020 Overview: last done: 07/16/19. does not want colonoscopies. Other physical therapy 08/16/201008/30 Sprain of neck 07/30/2010 08/30/2010 Unspecified pruritic disorder 03/02/2009 04/12/2020 Cervicalgia 10/16/2006 10/30/2018 Hyperlipidemia 08/04/2015 documented as of this encounter (statuses as of 05/18/2023) [facility] History of Past illness Narrative* Problem Noted Date Diagnosed Date Resolved Date Well adult exam 10/03/2016 04/12/2020 Overview: last done: 07/16/19. does not want colonoscopies. Other physical therapy 08/16/201008/30 Sprain of neck 07/30/2010 08/30/2010 Unspecified pruritic disorder 03/02/2009 04/12/2020 Cervicalgia 10/16/2006 10/30/2018 Hyperlipidemia 08/04/2015 documented as of this encounter (statuses as of 06/19/2023) [facility] History of Past illness Narrative* Problem Noted Date Diagnosed Date Resolved Date Well adult exam 10/03/2016 04/12/2020 Overview: last done: 07/16/19. does not want colonoscopies. Other physical therapy 08/16/201008/30 Sprain of neck 07/30/2010 08/30/2010 Unspecified pruritic disorder 03/02/2009 04/12/2020 Cervicalgia 10/16/2006 10/30/2018 Hyperlipidemia 08/04/2015 documented as of this encounter (statuses as of 06/26/2023) [facility] History of Past illness Narrative* Problem Noted Date Diagnosed Date Resolved Date Well adult exam 10/03/2016 04/12/2020 Overview: last done: 07/16/19. does not want colonoscopies. Other physical therapy 08/16/201008/30 Sprain of neck 07/30/2010 08/30/2010 Unspecified pruritic disorder 03/02/2009 04/12/2020 Cervicalgia 10/16/2006 10/30/2018 Hyperlipidemia 08/04/2015 documented as of this encounter (statuses as of 06/27/2023) [facility] History of Past illness Narrative* Problem Noted Date Diagnosed Date Resolved Date Well adult exam 10/03/2016 04/12/2020 Overview: last done: 07/16/19. does not want colonoscopies. Other physical therapy 08/16/201008/30 Sprain of neck 07/30/2010 08/30/2010 Unspecified pruritic disorder 03/02/2009 04/12/2020 Cervicalgia 10/16/2006 10/30/2018 Hyperlipidemia 08/04/2015 documented as of this encounter (statuses as of 06/27/2023) [facility] History of Past illness Narrative* Problem Noted Date Diagnosed Date Resolved Date Well adult exam 10/03/2016 04/12/2020 Overview: last done: 07/16/19. does not want colonoscopies. Other physical therapy 08/16/201008/30 Sprain of neck 07/30/2010 08/30/2010 Unspecified pruritic disorder 03/02/2009 04/12/2020 Cervicalgia 10/16/2006 10/30/2018 Hyperlipidemia 08/04/2015 documented as of this encounter (statuses as of 07/06/2023) [address]02-2017 History of Past illness Narrative* Problem Noted Date Diagnosed Date Resolved Date Well adult exam 10/03/2016 04/12/2020 Overview: last done: 07/16/19. does not want colonoscopies. Other physical therapy 08/16/201008/30 Sprain of neck 07/30/2010 08/30/2010 Unspecified pruritic disorder 03/02/2009 04/12/2020 Cervicalgia 10/16/2006 10/30/2018 Hyperlipidemia 08/04/2015 documented as of this encounter (statuses as of 07/06/2023) [facility] History of Past illness Narrative* Problem Noted Date Diagnosed Date Resolved Date Well adult exam 10/03/2016 04/12/2020 Overview: last done: 07/16/19. does not want colonoscopies. Other physical therapy 08/16/201008/30 Sprain of neck 07/30/2010 08/30/2010 Unspecified pruritic disorder 03/02/2009 04/12/2020 Cervicalgia 10/16/2006 10/30/2018 Hyperlipidemia 08/04/2015 documented as of this encounter (statuses as of 07/06/2023) [facility] Diagnosis Type 2 diabetes mellitus without complication, without long-term current use of insulin ([facility]CC) [facility] Syncope, unspecified syncope type- Primary Orthostatic hypotension Facial numbness Disturbance of skin sensation Injury of head, sequela Chronic post-traumatic headache, not intractable Chronic post-traumatic headache [facility] Orthostatic hypotension- Primary [facility] Diagnosis Mixed hyperlipidemia [facility] Injury of head, initial encounter [facility] Injury of head, initial encounter [facility] Diagnosis Chest pain, unspecified type [facility] Diagnosis Situational depression- Primary Adjustment disorder with depressed mood Panic disorder Panic disorder without agoraphobia [facility] Diagnosis Orthostatic hypotension- Primary Occipital neuralgia of right side Neuropathy Mononeuritis of unspecified site Syncope and collapse [facility] Encounter for immunization- Primary Need for other specified prophylactic vaccination against single bacterial disease Type 2 diabetes mellitus with diabetic neuropathy, without long-term current use of insulin ([facility]) Essential hypertension, benign Mixed hyperlipidemia Coronary atherosclerosis due to lipid rich plaque GERD without esophagitis Esophageal reflux Carotid stenosis, asymptomatic, bilateral Migraine variant Variants of migraine, not elsewhere classified, without mention of intractable migraine without mention of status migrainosus Adjustment disorder with depressed mood [facility] Hyponatremia- Primary Hyposmolality and/or hyponatremia documented in this [facility] Diagnosis Injury of head, initial encounter- Primary LOC (loss of consciousness) ([facility]) Other alteration of [facility] Diagnosis Type 2 diabetes mellitus without complication, without long-term current use of insulin ([facility]) Mixed hyperlipidemia [facility]* Diagnosis Abnormal weight loss- Primary Loss of weight Muscle mass Other musculoskeletal symptoms referable to limbs Intractable chronic post-traumatic headache Chronic post-traumatic headache Neuropathy Mononeuritis of unspecified site Situational depression Adjustment disorder with depressed mood Fatigue, unspecified type Myalgia Mylagia and myositis, unspecified [facility] Diagnosis Anemia, unspecified type- Primary Hyperglycemia Other abnormal glucose Uncontrolled type 2 diabetes mellitus with hyperglycemia ([facility]) Blood sugar increased Other abnormal glucose [facility] Diagnosis Iron deficiency anemia, unspecified iron deficiency anemia type- Primary [facility]* Diagnosis Anemia, unspecified type [facility] Diagnosis Abnormal weight loss- Primary Loss of weight [facility] Diagnosis Panic disorder Panic disorder without agoraphobia Situational depression Adjustment disorder with depressed mood Adjustment disorder with depressed mood [facility] Diagnosis Bladder wall thickening- Primary Other specified disorders of bladder Abnormal weight loss Loss of weight [facility] Diagnosis Type 2 diabetes mellitus with diabetic neuropathy, without long-term current use of insulin ([facility])- Primary [facility] Diagnosis Bladder wall thickening- Primary Other specified disorders of bladder Benign non-nodular prostatic hyperplasia without lower urinary tract symptoms documented [facility]* Diagnosis Dizziness- Primary Dizziness and giddiness Tremor Abnormal involuntary movements Hypotension, unspecified hypotension type Panic disorder Panic disorder without agoraphobia Situational depression Adjustment disorder with depressed mood Atypical chest pain Other chest pain Iron deficiency anemia, unspecified iron deficiency anemia type [facility] Diagnosis Foot injury, left, initial encounter- Primary [facility]* Diagnosis Syncope, unspecified syncope type- Primary Orthostatic hypotension [facility]* Diagnosis Type 2 diabetes mellitus with diabetic neuropathy, without long-term current use of insulin (HCC)- Primary Essential hypertension, benign documented [facility]* Diagnosis Iron deficiency anemia, unspecified iron deficiency anemia type- Primary Anemia, unspecified type [facility]* Diagnosis Long-segment Santos's esophagus- Primary Hiatal hernia Diaphragmatic hernia without mention of obstruction or gangrene Diverticulosis Diverticulosis of colon (without mention of hemorrhage) Other gastritis without bleeding [facility]* Diagnosis Rhus dermatitis- Primary Contact dermatitis and other eczema due to plants (except food) Syncope, unspecified syncope type- Primary Orthostatic hypotension [facility]* Diagnosis Syncope, unspecified syncope type- Primary Orthostatic hypotension documented [facility]* Diagnosis Medicare annual wellness visit, subsequent- Primary Routine general medical examination at a health care facility Advance directive discussed with patient Other specified counseling Type 2 diabetes mellitus with diabetic neuropathy, without long-term current use of insulin (HCC) Uncontrolled type 2 diabetes mellitus with hyperglycemia (HCC) Essential hypertension, benign Mixed hyperlipidemia Chronic post-traumatic headache, not intractable Chronic post-traumatic headache Iron deficiency anemia, unspecified iron deficiency anemia type Disorder of prostate Unspecified disorder of prostate Coronary atherosclerosis due to lipid rich plaque GERD without esophagitis Esophageal reflux [facility]* Diagnosis Elevated PSA- Primary Elevated prostate specific antigen (PSA) Uncontrolled type 2 diabetes mellitus with hyperglycemia (HCC) documented [facility]* Diagnosis Type 2 diabetes mellitus without complication, without long-term current use of insulin (HCC) documented in this encounter [facility] note* Diagnosis Panic disorder- Primary Panic disorder without agoraphobia Syncope, unspecified syncope type- Primary Orthostatic hypotension documented in this encounter [facility] note* Diagnosis Rash- Primary Rash and other nonspecific skin eruption documented in this encounter [facility] note* Diagnosis Mouth sores- Primary Other and unspecified diseases of the oral soft tissues documented in this encounter [facility] note* Diagnosis Patient left without being seen- Primary Surgical or other procedure not carried out because of patient's decision SOB (shortness of breath) Shortness of breath documented in this encounter [facility] note* Diagnosis Mouth pain- Primary Other and unspecified diseases of the oral soft tissues [facility]* Diagnosis Abnormal weight loss Loss of weight documented in this encounter [facility] note* Diagnosis Abnormal weight loss Loss of weight documented in this encounter [facility] for referral (narrative)* Diagnostic Procedure Only (Routine) - Authorized Specialty Diagnoses / Procedures Referred By Carlos neff Referred To Contact US IMAGING Diagnoses Abnormal weight loss Procedures US ABD RT UPPER QUADRANT US ABDOMINAL REAL TIME W/IMAGE LIMITED Martha Boston PA-C [address] [place] [address] Us Imaging Referral ID Status Reason Start Date Expiration Date Visits Requested Visits Authorized [id number] Authorized Auto-Generat ed Referral 2 07/25/2023 1 1 [facility] for referral (narrative)* Outpatient Procedure (Routine) - Pending Review Specialty Diagnoses / Procedures Referred By Carlos neff Referred To Contact [facility] Diagnoses Anemia, unspecified type Procedures COLONOSCOPY DIAGNOSTIC COLONOSCOPY FLX DX W/COLLJ SPEC WHEN Thai Borges MD [address] [place] [address] [facility] [address] [place] [address] Referral ID Status Reason Start Date Expiration Date Visits Requested Visits Authorized [id number] Pending Review Auto-Generat ed Referral 2 06/27/2023 1 1 * Outpatient Procedure (Routine) - Pending Review Specialty Diagnoses / Procedures Referred By Carlos neff Referred To Contact [facility] Diagnoses Anemia, unspecified type Procedures EGD DIAGNOSTIC ESOPHAGOGASTRODUODENOSC OPY TRANSORAL DIAGNOSTIC Thai Santiago MD [address] [place] [address] [facility] [address] [place] [address] Referral ID Status Reason Start Date Expiration Date Visits Requested Visits Authorized [id number] Pending Review Auto-Generat ed Referral 2 06/27/2023 1 1 [facility] for referral (narrative)* Diagnostic Procedure Only (Urgent) - Closed Specialty Diagnoses / Procedures Referred By Carlos neff Referred To Contact XR IMAGING Diagnoses Foot injury, left, initial encounter Procedures XR FOOT GENERAL 3V AP/LAT/OBL LEFT RADEX FOOT COMPLETE MINIMUM 3 VIEWS Miladys Butt APRN.CNP [address] [place] [address] Xr Imaging Referral ID Status Reason Start Date Expiration Date V isits Requested Visits Authorized [id number] Closed Auto-Generate d Referral 09/23/2022 10/23/2023 1 1 [facility] for referral (narrative)* Outpatient Procedure (Routine) - Closed Specialty Diagnoses / Procedures Referred By Carlos neff Referred To Contact Diagnoses Anemia, unspecified type Procedures COLONOSCOPY DIAGNOSTIC COLONOSCOPY FLX DX W/COLLJ SPEC WHEN PFRMThai Burnett MD [address] [place] [address] Nell Gillis MD [address] [place] [address] Referral ID Status Reason Start Date Expiration Date V isits Requested Visits Authorized [id number] Closed Auto-Generate d Referral 10/14/2022 01/12/2023 1 1 * Outpatient Procedure (Routine) - Closed Specialty Diagnoses / Procedures [facility] Referred To Contact Diagnoses Anemia, unspecified type Procedures EGD DIAGNOSTIC ESOPHAGOGASTRODUODENOSCOPY TRANSORAL DIAGNOSTIC Thai Santiago MD [address] [facility] [place] [address] Nell Gillis MD [address] [facility] [place] [address] Referral ID Status Reason Start Date Expiration Date V isits Requested Visits Authorized [id number] Closed Auto-Generate d Referral 10/14/2022 01/12/2023 1 1 [facility] for referral (narrative)* Diagnostic Procedure Only (Routine) - Closed Specialty Diagnoses / Procedures [facility] Referred To Contact CT IMAGING Diagnoses Abnormal weight loss Procedures CT ABD/PEL W IVCON CT ABD & PELVIS W/CONTRAST Martha Boston PA-C [address] [place] [address] [place] [address] Referral ID Status Reason Start Date Expiration Date V isits Requested Visits Authorized [id number] Closed Auto-Generate d Referral 07/09/2022 08/08/2022 2 2 * MRI/CT (Routine) - Closed Specialty Diagnoses / Procedures [facility] Referred To Contact CT IMAGING Diagnoses Abnormal weight loss Procedures CT CHEST W IVCON DIAGNOSTIC COMPUTED TOMOGRAPHY THORAX W/CONTRAST Martha Boston PA-C [address] [place] [address] [place] [address] Referral ID Status Reason Start Date Expiration Date V isits Requested Visits Authorized [id number] Closed Auto-Generate d Referral 07/09/2022 08/08/2022 1 1 [facility] for referral (narrative)* Diagnostic Procedure Only (Routine) - Closed Specialty Diagnoses / Procedures Referred By Contac t Referred To Contact US IMAGING Diagnoses Abnormal weight loss Procedures US ABD RT UPPER QUADRANT US ABDOMINAL REAL TIME W/IMAGE LIMITED Martha Boston PA-C [address] [place] [address] [place] [address] Referral ID Status Reason Start Date Expiration Date V isits Requested Visits Authorized [id number] Closed Auto-Generate d Referral 06/25/2022 07/25/2023 1 1 [facility] for visit Narrative* Outpatient Procedure (Routine) - Closed Specialty Diagnoses / Procedures Referred By Contac t Referred To Contact Diagnoses Anemia, unspecified type Procedures COLONOSCOPY DIAGNOSTIC COLONOSCOPY FLX DX W/COLLJ SPEC WHEN Thai Borges MD [address] [place] [address] Nell Gillis MD [address] [facility] [place] [address] Referral ID Status Reason Start Date Expiration Date V isits Requested Visits Authorized [id number] Closed Auto-Generate d Referral 10/14/2022 01/12/2023 1 1 [facility] for visit Narrative* Diagnostic Procedure Only (Routine) - Closed Specialty Diagnoses / Procedures Referred By Contac t Referred To Contact CT IMAGING Diagnoses Abnormal weight loss Procedures CT ABD/PEL W IVCON CT ABD & PELVIS W/CONTRAST Martha Boston PA-C [address] [place] [address] [place] [address] Referral ID Status Reason Start Date Expiration Date V isits Requested Visits Authorized [id number] Closed Auto-Generate d Referral 07/09/2022 08/08/2022 2 2 [facility] Summary Purpose Family History No Family History Records FoundNo Family History Records FoundNo Family History Records FoundNo Family History Records FoundNo Family History Records Found Advance Directives No Advanced Directives Records FoundDocuments on File 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 Advance Directive(s) Advance Directive(s) 02/20/2018 5:13 PM Advance Directive(s) 02/16/2018 12:54 PM Advance Directive(s) 11/07/2017 1:34 PM Advance Directive(s) 11/07/2017 4:10 PM Advance Directive(s) 11/07/2017 4:03 PM Advance Directive(s) 09/10/2017 6:38 AM Advance Directive(s) 11/20/2015 9:33 AM Documents on File 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 Advance Directive(s) Advance Directive(s) 02/20/2018 5:13 PM Advance Directive(s) 02/16/2018 12:54 PM Advance Directive(s) 11/07/2017 1:34 PM Advance Directive(s) 11/07/2017 4:10 PM Advance Directive(s) 11/07/2017 4:03 PM Advance Directive(s) 09/10/2017 6:38 AM Advance Directive(s) 11/20/2015 9:33 AM Documents on File 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 Advance Directive(s) 11/07/2017 4:03 PM Documents on File 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 Advance Directive(s) 11/07/2017 4:03 PM Reason for Referral Specialty Diagnoses / Procedures Referred By Carlos t Referred To Contact Neurology Diagnoses Orthostatic hypotension Procedures CONSULT TO NEUROLOGY OFFICE/OUTPATIENT NEW HIGH MDM 60-74 MINUTES Jenna Jim APRN.[employer]BE[employer]OS REMOVAL 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 [address] [place] [id number] Referral ID Status Reason Start Date Expiration Date Visits Requested Visits Authorized [id number] Pending Review PCP Requested Referral 02/22/2022 02/22/2023 1 1 Specialty Diagnoses / Procedures Referred By Carlos neff Referred To Contact CT IMAGING Diagnoses Injury of head, initial encounter Procedures CT BRAIN WO IVCON CT HEAD/BRAIN W/O CONTRAST MATERIAL Jenna Jim APRN.[employer] REMOV[employer] SUPERVISOR [address] [place] [id number] Ct Imaging Referral ID Status Reason Start Date Expiration Date V isits Requested Visits Authorized [id number] Closed Auto-Generate d Referral 03/19/2022 04/18/2023 1 1 Specialty Diagnoses / Procedures Referred By Contac t Referred To Contact General Surgery Diagnoses Anemia, unspecified type Procedures CONSULT TO GENERAL SURGERY OFFICE/OUTPATIENT NEW HIGH MDM 60-74 MINUTES Martha Boston PA-C [address] [place] [address] Referral ID Status Reason Start Date Expiration Date Visits Requested Visits Authorized [id number] Pending Review PCP Requested Referral 06/26/2023 1 1 Specialty Diagnoses / Procedures Referred By Contac t Referred To Contact CT IMAGING Diagnoses Abnormal weight loss Procedures CT ABD/PEL W IVCON CT ABD & PELVIS W/CONTRAST Martha Boston PA-C [address] [place] [address] Ct Imaging Referral ID Status Reason Start Date Expiration Date Visits Requested Visits Authorized [id number] Pending Review Auto-Generat ed Referral 07/02/2022 08/01/2023 1 1 Specialty Diagnoses / Procedures Referred By Contac t Referred To Contact CT IMAGING Diagnoses Abnormal weight loss Procedures CT CHEST W IVCON DIAGNOSTIC COMPUTED TOMOGRAPHY THORAX W/CONTRAST Martha Boston PA-C [address] [place] [address] Ct Imaging Referral ID Status Reason Start Date Expiration Date Visits Requested Visits Authorized [id number] Pending Review Auto-Generat ed Referral 07/02/2022 08/01/2023 1 1 Specialty Diagnoses / Procedures Referred By Contac t Referred To Contact Urology Diagnoses Bladder wall thickening Abnormal weight loss Procedures CONSULT TO UROLOGY OFFICE/OUTPATIENT NEW HIGH MDM 60-74 MINUTES Martha Boston PA-C [address] [place] [address] Referral ID Status Reason Start Date Expiration Date Visits Requested Visits Authorized [id number] Pending Review PCP Requested Referral 07/10/2022 07/10/2023 1 1 Specialty Diagnoses / Procedures Referred By Contac t Referred To Contact Neurology Diagnoses Type 2 diabetes mellitus with diabetic neuropathy, without long-term current use of insulin (HCC) Procedures CONSULT TO NEUROLOGY Gamal Mathis APRN.CNP [address] [place] [address] Lemuel Troy Jr., MD [address] [place] [address] Referral ID Status Reason Start Date Expiration Date Visits Requested Visits Authorized [id number] Ref Not Required PCP Requested Referral 2 07/30/2023 1 1 Specialty Diagnoses / Procedures Referred By Contac t Referred To Contact Ophthalmology Diagnoses Type 2 diabetes mellitus with diabetic neuropathy, without long-term current use of insulin (HCC) Procedures CONSULT TO OPHTHALMOLOGY OFFICE/OUTPATIENT [facility] 60-74 MINUTES Martha Boston PA-C [address] [place] [address] Referral ID Status Reason Start Date Expiration Date Visits Requested Visits Authorized [id number] Pending Review PCP Requested Referral 11/28/2022 11/28/2023 1 1 Medications Administered Section Inactive Administered Medications - up to 3 most recent administrations Medication Order MAR Action Action Date Dose Rate Site bupivacaine 0.5 % 47.5 mg injection (MARCAINE MDV) 47.5 mg (9.5 mL), INTRADERMAL, ONCE, 1 dose, On Fri04/25/22 at 1530 Given 04/25/2022 2:50 PM EDT 47.5 mg Other triamcinolone acetonide 40 mg injection (KeNALog 40) 40 mg, INTRADERMAL, ONCE, 1 dose, On Fri04/25/22 at 1530 Given 04/25/2022 2:50 PM EDT 40 mg Other Inactive Administered Medications - up to 3 most recent administrations Medication Order MAR Action Action Date Dose Rate Site cephALEXin 500 mg cap(s) (KEFLEX) 500 mg, ORAL, ONCE, 1 dose, On Fri08/05/22 at 1330, Please document the antimicrobial indication: Empiric Given 08/05/2022 1:00 PM EST 500 mg Oral lidocaine 2 % topical gel (XYLOCAINE) URETHRAL, ONCE, 1 dose, On Fri08/05/22 at 1330, FOR EXTERNAL USE ONLY APPLY TO: PENIS Given 08/05/2022 1:05 PM EST 11 mL Other Inactive Administered Medications - up to 3 most recent administrations Medication Order MAR Action Action Date Dose Rate Site benzocaine 20% 4 [place] (TOPEX) 4 [place], TOPICAL, ONCE, 1 dose, On Fri10/14/22 at 1130, APPLY orally per LIP prior to start of procedure - Pharmaceutical Waste: Aerosol -, Intraprocedure Given 10/14/2022 11:21 AM EST 4 Sprays lactated ringers iv infusion 30 mL/hr, INTRAVENOUS, CONTINUOUS, Starting on Fri10/14/22 at 1100, Until Fri10/14/22 at 1155, Preprocedure New Bag/Syringe/Bottle 10/14/2022 11:10 AM EST 30 mL/hr 30 mL/hr Health Concerns Infection Onset Date Last Indicated Resolved Time COVID-19 Rule-Out 05/14/2022 05/14/2022 05/15/2022 7:06 AM EDT COVID-19 Confirmed 05/14/2022 05/14/2022 Infection Onset Date Last Indicated Resolved Time COVID-19 Confirmed 05/14/2022 05/14/2022 Additional Source Comments (unrecognized sect ion and content) No Status Records FoundNo Status Records FoundNo Status Records FoundNo Status Records FoundNo Status Records Found INFORMATION SOURCE (unrecogn ized section and content) DATE CREATED AUTHOR AUTHOR'S ORGANIZ ATION 04/06/2022 [facility] nt DATE CREATED AUTHOR AUTHOR'S ORGANIZ ATION 08/25/2022 [facility] DATE CREATED AUTHOR AUTHOR'S ORGANIZ ATION 10/20/2022 [facility] DATE CREATED AUTHOR AUTHOR'S ORGANIZ ATION 09/04/2023 [facility] Source Comments (unrecognize d section and content) In the event this informatio n is protected by the Federal Confidentiality of Alcohol and Drug Abuse Patient Records regulations: The Federal rules restrict any use of the information to criminally investigate or prosecute any alcohol or drug abuse patient.[facility] the event this information is protected by the Federal Confidentiality of Alcohol and Drug Abuse Patient Records regulations: The Federal rules restrict any use of the information to criminally investigate or prosecute any alcohol or drug abuse patient.[facility] the event this information is protected by the Federal Confidentiality of Alcohol and Drug Abuse Patient Records regulations: The Federal rules restrict any use of the information to criminally investigate or prosecute any alcohol or drug abuse patient.[facility] the event this information is protected by the Federal Confidentiality of Alcohol and Drug Abuse Patient Records regulations: The Federal rules restrict any use of the information to criminally investigate or prosecute any alcohol or drug abuse patient.[facility] the event this information is protected by the Federal Confidentiality of Alcohol and Drug Abuse Patient Records regulations: The Federal rules restrict any use of the information to criminally investigate or prosecute any alcohol or drug abuse patient.[facility] the event this information is protected by the Federal Confidentiality of Alcohol and Drug Abuse Patient Records regulations: The Federal rules restrict any use of the information to criminally investigate or prosecute any alcohol or drug abuse patient.[facility] the event this information is protected by the Federal Confidentiality of Alcohol and Drug Abuse Patient Records regulations: The Federal rules restrict any use of the information to criminally investigate or prosecute any alcohol or drug abuse patient.[facility] the event this information is protected by the Federal Confidentiality of Alcohol and Drug Abuse Patient Records regulations: The Federal rules restrict any use of the information to criminally investigate or prosecute any alcohol or drug abuse patient.[facility] the event this information is protected by the Federal Confidentiality of Alcohol and Drug Abuse Patient Records regulations: The Federal rules restrict any use of the information to criminally investigate or prosecute any alcohol or drug abuse patient.[facility] the event this information is protected by the Federal Confidentiality of Alcohol and Drug Abuse Patient Records regulations: The Federal rules restrict any use of the information to criminally investigate or prosecute any alcohol or drug abuse patient.[facility] System[facility] the event this information is protected by the Federal Confidentiality of Alcohol and Drug Abuse Patient Records regulations: The Federal rules restrict any use of the information to criminally investigate or prosecute any alcohol or drug abuse patient.[facility] System[facility] the event this information is protected by the Federal Confidentiality of Alcohol and Drug Abuse Patient Records regulations: The Federal rules restrict any use of the information to criminally investigate or prosecute any alcohol or drug abuse patient.[facility] System[facility] the event this information is protected by the Federal Confidentiality of Alcohol and Drug Abuse Patient Records regulations: The Federal rules restrict any use of the information to criminally investigate or prosecute any alcohol or drug abuse patient.[facility] System[facility] the event this information is protected by the Federal Confidentiality of Alcohol and Drug Abuse Patient Records regulations: The Federal rules restrict any use of the information to criminally investigate or prosecute any alcohol or drug abuse patient.[facility] System[facility] the event this information is protected by the Federal Confidentiality of Alcohol and Drug Abuse Patient Records regulations: The Federal rules restrict any use of the information to criminally investigate or prosecute any alcohol or drug abuse patient.[facility] SystemIn the event this information is protected by the Federal Confidentiality of Alcohol and Drug Abuse Patient Records regulations: The Federal rules restrict any use of the information to criminally investigate or prosecute any alcohol or drug abuse patient.[facility] SystemIn the event this information is protected by the Federal Confidentiality of Alcohol and Drug Abuse Patient Records regulations: The Federal rules restrict any use of the information to criminally investigate or prosecute any alcohol or drug abuse patient.[facility] SystemIn the event this information is protected by the Federal Confidentiality of Alcohol and Drug Abuse Patient Records regulations: The Federal rules restrict any use of the information to criminally investigate or prosecute any alcohol or drug abuse patient.[facility] SystemIn the event this information is protected by the Federal Confidentiality of Alcohol and Drug Abuse Patient Records regulations: The Federal rules restrict any use of the information to criminally investigate or prosecute any alcohol or drug abuse patient.[facility] SystemIn the event this information is protected by the Federal Confidentiality of Alcohol and Drug Abuse Patient Records regulations: The Federal rules restrict any use of the information to criminally investigate or prosecute any alcohol or drug abuse patient.[facility] SystemIn the event this information is protected by the Federal Confidentiality of Alcohol and Drug Abuse Patient Records regulations: The Federal rules restrict any use of the information to criminally investigate or prosecute any alcohol or drug abuse patient.[facility] SystemIn the event this information is protected by the Federal Confidentiality of Alcohol and Drug Abuse Patient Records regulations: The Federal rules restrict any use of the information to criminally investigate or prosecute any alcohol or drug abuse patient.[facility] SystemIn the event this information is protected by the Federal Confidentiality of Alcohol and Drug Abuse Patient Records regulations: The Federal rules restrict any use of the information to criminally investigate or prosecute any alcohol or drug abuse patient.[facility] SystemIn the event this information is protected by the Federal Confidentiality of Alcohol and Drug Abuse Patient Records regulations: The Federal rules restrict any use of the information to criminally investigate or prosecute any alcohol or drug abuse patient.[facility] SystemIn the event this information is protected by the Federal Confidentiality of Alcohol and Drug Abuse Patient Records regulations: The Federal rules restrict any use of the information to criminally investigate or prosecute any alcohol or drug abuse patient.[facility] SystemIn the event this information is protected by the Federal Confidentiality of Alcohol and Drug Abuse Patient Records regulations: The Federal rules restrict any use of the information to criminally investigate or prosecute any alcohol or drug abuse patient.[facility] SystemIn the event this information is protected by the Federal Confidentiality of Alcohol and Drug Abuse Patient Records regulations: The Federal rules restrict any use of the information to criminally investigate or prosecute any alcohol or drug abuse patient.[facility] SystemIn the event this information is protected by the Federal Confidentiality of Alcohol and Drug Abuse Patient Records regulations: The Federal rules restrict any use of the information to criminally investigate or prosecute any alcohol or drug abuse patient.[facility] SystemIn the event this information is protected by the Federal Confidentiality of Alcohol and Drug Abuse Patient Records regulations: The Federal rules restrict any use of the information to criminally investigate or prosecute any alcohol or drug abuse patient.[facility] SystemIn the event this information is protected by the Federal Confidentiality of Alcohol and Drug Abuse Patient Records regulations: The Federal rules restrict any use of the information to criminally investigate or prosecute any alcohol or drug abuse patient.[facility] SystemIn the event this information is protected by the Federal Confidentiality of Alcohol and Drug Abuse Patient Records regulations: The Federal rules restrict any use of the information to criminally investigate or prosecute any alcohol or drug abuse patient.[facility] SystemIn the event this information is protected by the Federal Confidentiality of Alcohol and Drug Abuse Patient Records regulations: The Federal rules restrict any use of the information to criminally investigate or prosecute any alcohol or drug abuse patient.[facility] SystemIn the event this information is protected by the Federal Confidentiality of Alcohol and Drug Abuse Patient Records regulations: The Federal rules restrict any use of the information to criminally investigate or prosecute any alcohol or drug abuse patient.[facility] SystemIn the event this information is protected by the Federal Confidentiality of Alcohol and Drug Abuse Patient Records regulations: The Federal rules restrict any use of the information to criminally investigate or prosecute any alcohol or drug abuse patient.[facility] SystemIn the event this information is protected by the Federal Confidentiality of Alcohol and Drug Abuse Patient Records regulations: The Federal rules restrict any use of the information to criminally investigate or prosecute any alcohol or drug abuse patient.[facility] SystemIn the event this information is protected by the Federal Confidentiality of Alcohol and Drug Abuse Patient Records regulations: The Federal rules restrict any use of the information to criminally investigate or prosecute any alcohol or drug abuse patient.[facility] the event this information is protected by the Federal Confidentiality of Alcohol and Drug Abuse Patient Records regulations: The Federal rules restrict any use of the information to criminally investigate or prosecute any alcohol or drug abuse patient.[facility] SystemIn the event this information is protected by the Federal Confidentiality of Alcohol and Drug Abuse Patient Records regulations: The Federal rules restrict any use of the information to criminally investigate or prosecute any alcohol or drug abuse patient.[facility] SystemIn the event this information is protected by the Federal Confidentiality of Alcohol and Drug Abuse Patient Records regulations: The Federal rules restrict any use of the information to criminally investigate or prosecute any alcohol or drug abuse patient.[facility] SystemIn the event this information is protected by the Federal Confidentiality of Alcohol and Drug Abuse Patient Records regulations: The Federal rules restrict any use of the information to criminally investigate or prosecute any alcohol or drug abuse patient.[facility] SystemIn the event this information is protected by the Federal Confidentiality of Alcohol and Drug Abuse Patient Records regulations: The Federal rules restrict any use of the information to criminally investigate or prosecute any alcohol or drug abuse patient.[facility] SystemIn the event this information is protected by the Federal Confidentiality of Alcohol and Drug Abuse Patient Records regulations: The Federal rules restrict any use of the information to criminally investigate or prosecute any alcohol or drug abuse patient.[facility] SystemIn the event this information is protected by the Federal Confidentiality of Alcohol and Drug Abuse Patient Records regulations: The Federal rules restrict any use of the information to criminally investigate or prosecute any alcohol or drug abuse patient.[facility] SystemIn the event this information is protected by the Federal Confidentiality of Alcohol and Drug Abuse Patient Records regulations: The Federal rules restrict any use of the information to criminally investigate or prosecute any alcohol or drug abuse patient.[facility] SystemIn the event this information is protected by the Federal Confidentiality of Alcohol and Drug Abuse Patient Records regulations: The Federal rules restrict any use of the information to criminally investigate or prosecute any alcohol or drug abuse patient.[facility] SystemIn the event this information is protected by the Federal Confidentiality of Alcohol and Drug Abuse Patient Records regulations: The Federal rules restrict any use of the information to criminally investigate or prosecute any alcohol or drug abuse patient.[facility] SystemIn the event this information is protected by the Federal Confidentiality of Alcohol and Drug Abuse Patient Records regulations: The Federal rules restrict any use of the information to criminally investigate or prosecute any alcohol or drug abuse patient.[facility] SystemIn the event this information is protected by the Federal Confidentiality of Alcohol and Drug Abuse Patient Records regulations: The Federal rules restrict any use of the information to criminally investigate or prosecute any alcohol or drug abuse patient.[facility] SystemIn the event this information is protected by the Federal Confidentiality of Alcohol and Drug Abuse Patient Records regulations: The Federal rules restrict any use of the information to criminally investigate or prosecute any alcohol or drug abuse patient.[facility] SystemIn the event this information is protected by the Federal Confidentiality of Alcohol and Drug Abuse Patient Records regulations: The Federal rules restrict any use of the information to criminally investigate or prosecute any alcohol or drug abuse patient.[facility] SystemIn the event this information is protected by the Federal Confidentiality of Alcohol and Drug Abuse Patient Records regulations: The Federal rules restrict any use of the information to criminally investigate or prosecute any alcohol or drug abuse patient.[facility] SystemIn the event this information is protected by the Federal Confidentiality of Alcohol and Drug Abuse Patient Records regulations: The Federal rules restrict any use of the information to criminally investigate or prosecute any alcohol or drug abuse patient.[facility] SystemIn the event this information is protected by the Federal Confidentiality of Alcohol and Drug Abuse Patient Records regulations: The Federal rules restrict any use of the information to criminally investigate or prosecute any alcohol or drug abuse patient.[facility] SystemIn the event this information is protected by the Federal Confidentiality of Alcohol and Drug Abuse Patient Records regulations: The Federal rules restrict any use of the information to criminally investigate or prosecute any alcohol or drug abuse patient.[facility] SystemIn the event this information is protected by the Federal Confidentiality of Alcohol and Drug Abuse Patient Records regulations: The Federal rules restrict any use of the information to criminally investigate or prosecute any alcohol or drug abuse patient.[facility] SystemIn the event this information is protected by the Federal Confidentiality of Alcohol and Drug Abuse Patient Records regulations: The Federal rules restrict any use of the information to criminally investigate or prosecute any alcohol or drug abuse patient.[facility] SystemIn the event this information is protected by the Federal Confidentiality of Alcohol and Drug Abuse Patient Records regulations: The Federal rules restrict any use of the information to criminally investigate or prosecute any alcohol or drug abuse patient.[facility] SystemIn the event this information is protected by the Federal Confidentiality of Alcohol and Drug Abuse Patient Records regulations: The Federal rules restrict any use of the information to criminally investigate or prosecute any alcohol or drug abuse patient.[facility] SystemIn the event this information is protected by the Federal Confidentiality of Alcohol and Drug Abuse Patient Records regulations: The Federal rules restrict any use of the information to criminally investigate or prosecute any alcohol or drug abuse patient.[facility] SystemIn the event this information is protected by the Federal Confidentiality of Alcohol and Drug Abuse Patient Records regulations: The Federal rules restrict any use of the information to criminally investigate or prosecute any alcohol or drug abuse patient.[facility] SystemIn the event this information is protected by the Federal Confidentiality of Alcohol and Drug Abuse Patient Records regulations: The Federal rules restrict any use of the information to criminally investigate or prosecute any alcohol or drug abuse patient.[facility] SystemIn the event this information is protected by the Federal Confidentiality of Alcohol and Drug Abuse Patient Records regulations: The Federal rules restrict any use of the information to criminally investigate or prosecute any alcohol or drug abuse patient.[facility] SystemIn the event this information is protected by the Federal Confidentiality of Alcohol and Drug Abuse Patient Records regulations: The Federal rules restrict any use of the information to criminally investigate or prosecute any alcohol or drug abuse patient.[facility] SystemIn the event this information is protected by the Federal Confidentiality of Alcohol and Drug Abuse Patient Records regulations: The Federal rules restrict any use of the information to criminally investigate or prosecute any alcohol or drug abuse patient.[facility] SystemIn the event this information is protected by the Federal Confidentiality of Alcohol and Drug Abuse Patient Records regulations: The Federal rules restrict any use of the information to criminally investigate or prosecute any alcohol or drug abuse patient.[facility] SystemIn the event this information is protected by the Federal Confidentiality of Alcohol and Drug Abuse Patient Records regulations: The Federal rules restrict any use of the information to criminally investigate or prosecute any alcohol or drug abuse patient.[facility] SystemIn the event this information is protected by the Federal Confidentiality of Alcohol and Drug Abuse Patient Records regulations: The Federal rules restrict any use of the information to criminally investigate or prosecute any alcohol or drug abuse patient.[facility] SystemIn the event this information is protected by the Federal Confidentiality of Alcohol and Drug Abuse Patient Records regulations: The Federal rules restrict any use of the information to criminally investigate or prosecute any alcohol or drug abuse patient.[facility] SystemIn the event this information is protected by the Federal Confidentiality of Alcohol and Drug Abuse Patient Records regulations: The Federal rules restrict any use of the information to criminally investigate or prosecute any alcohol or drug abuse patient.[facility] SystemIn the event this information is protected by the Federal Confidentiality of Alcohol and Drug Abuse Patient Records regulations: The Federal rules restrict any use of the information to criminally investigate or prosecute any alcohol or drug abuse patient.[facility] SystemIn the event this information is protected by the Federal Confidentiality of Alcohol and Drug Abuse Patient Records regulations: The Federal rules restrict any use of the information to criminally investigate or prosecute any alcohol or drug abuse patient.[facility] SystemIn the event this information is protected by the Federal Confidentiality of Alcohol and Drug Abuse Patient Records regulations: The Federal rules restrict any use of the information to criminally investigate or prosecute any alcohol or drug abuse patient.[facility] SystemIn the event this information is protected by the Federal Confidentiality of Alcohol and Drug Abuse Patient Records regulations: The Federal rules restrict any use of the information to criminally investigate or prosecute any alcohol or drug abuse patient.[facility] SystemIn the event this information is protected by the Federal Confidentiality of Alcohol and Drug Abuse Patient Records regulations: The Federal rules restrict any use of the information to criminally investigate or prosecute any alcohol or drug abuse patient.[facility] SystemIn the event this information is protected by the Federal Confidentiality of Alcohol and Drug Abuse Patient Records regulations: The Federal rules restrict any use of the information to criminally investigate or prosecute any alcohol or drug abuse patient.[facility] SystemIn the event this information is protected by the Federal Confidentiality of Alcohol and Drug Abuse Patient Records regulations: The Federal rules restrict any use of the information to criminally investigate or prosecute any alcohol or drug abuse patient.[facility] SystemIn the event this information is protected by the Federal Confidentiality of Alcohol and Drug Abuse Patient Records regulations: The Federal rules restrict any use of the information to criminally investigate or prosecute any alcohol or drug abuse patient.[facility] SystemIn the event this information is protected by the Federal Confidentiality of Alcohol and Drug Abuse Patient Records regulations: The Federal rules restrict any use of the information to criminally investigate or prosecute any alcohol or drug abuse patient.[facility] SystemIn the event this information is protected by the Federal Confidentiality of Alcohol and Drug Abuse Patient Records regulations: The Federal rules restrict any use of the information to criminally investigate or prosecute any alcohol or drug abuse patient.[facility] SystemIn the event this information is protected by the Federal Confidentiality of Alcohol and Drug Abuse Patient Records regulations: The Federal rules restrict any use of the information to criminally investigate or prosecute any alcohol or drug abuse patient.[facility] SystemIn the event this information is protected by the Federal Confidentiality of Alcohol and Drug Abuse Patient Records regulations: The Federal rules restrict any use of the information to criminally investigate or prosecute any alcohol or drug abuse patient.[facility] SystemIn the event this information is protected by the Federal Confidentiality of Alcohol and Drug Abuse Patient Records regulations: The Federal rules restrict any use of the information to criminally investigate or prosecute any alcohol or drug abuse patient.[facility] Reason for Visit (unrecogniz ed section and content) Reason Comments Medication Problem Reason Comments outside cardiology Reason Comments Release Of Medical Records Reason Onset Date Comments Refill Request 01/30/2022 Reason Comments New NI Medical Consult for fainting Reason Comments Question Reason Onset Date Comments Refill Request 02/26/2022 SEE RX NOTE Reason Comments Patient Update Recent fall Reason Comments Radiology CT Specialty Diagnoses / Procedures Referred By Carlos neff Referred To Contact CT IMAGING Diagnoses Injury of head, initial encounter Procedures CT BRAIN WO IVCON CT HEAD/BRAIN W/O CONTRAST MATERIAL Jenna Jim, [employer] [address] [place] [address] Ct Imaging Referral ID Status Reason Start Date Expiration Date V isits Requested Visits Authorized [id number] Closed Auto-Generat ed Referral Patient Cleared - Admin/Chairm an/Director advise to proceed 03/19/2022 04/18/2022 1 1 Reason Comments Results - Ct Reason Onset Date Comments Refill Request 03/25/2022 Reason Comments Refill Request Reason Comments Patient Question Reason Comments Medication Request Reason Comments New Patient Reason Comments Patient Update Reason Comments Medication Question Reason Onset Date Comments Refill Request 05/03/2022 Reason Comments 6 Month Exam Reason Comments Medication concern Medication Problem Reason Comments requesting A1C results Reason Comments Medication Problem Patient Update Reason Comments Weight Loss Patient states has h ad loss of weight, muscle mass. Is also having head pain Reason Comments [facility] Community [facility] Reason Comments Results Reason Comments Consult Colonoscopy, anemia, no prior colonoscopy Specialty Diagnoses / Procedures Referred By Carlos neff Referred To Contact General Surgery Diagnoses Anemia, unspecified type Procedures CONSULT TO GENERAL SURGERY OFFICE/OUTPATIENT NEW HIGH MDM 60-74 MINUTES Martha Boston PA-C [address] [place] [address] Referral ID Status Reason Start Date Expiration Date Visits Requested Visits Authorized [id number] Pending Review PCP Requested Referral 2 06/26/2023 1 1 Reason Comments Results Reason Onset Date Comments Refill Request 07/05/2022 Reason Comments Consult Reason Comments Patient Update Appointment Reason Comments Appointment Reason Comments Cystoscopy-1 Reason Onset Date Comments Refill Request 08/06/2022 Reason Comments Follow Up Reason Onset Date Comments Refill Request 08/30/2022 Reason Comments low blood pressure Reason Comments Trauma Dropped frozen meat on left foot x 1 week Reason Comments Hypotension Specialty Diagnoses / Procedures Referred By Contac t Referred To Contact Neurology Diagnoses Orthostatic hypotension Procedures CONSULT TO NEUROLOGY OFFICE/OUTPATIENT NEW HIGH MDM 60-74 MINUTES Jenna Jim, PICTURE HANGER.[employer]PER[employer] [address] [place] [address] Referral ID Status Reason Start Date Expiration Date Visits Requested Visits Authorized [id number] Pending Review PCP Requested Referral 02/22/2022 02/22/2023 1 1 Reason Onset Date Comments Refill Request 10/02/2022 Reason Comments Follow Up Low BS's and low BP Reason Comments Consult Consult Cardiology Reason Onset Date Comments Refill Request 11/05/2022 Reason Comments Follow Up EGD and colonoscopy Reason Comments Rash Pt reported red pain ful rash x1 mth, bilateral thigh, lower back, arms. Reason Onset Date Comments Refill Request 01/07/2023 Reason Comments Other Reason Onset Date Comments Refill Request 02/04/2023 Reason Comments Rash Bilateral forearms p oison coni x1 week Reason Comments Mouth/Lip Problem bottom lip swelling x this am, canker sore in lip, rash Reason Onset Date Comments Refill Request 04/01/2023 Reason Comments Outsude cardiology Reason Comments Mouth/Lip Problem Mouth and lips are s ore x 1 day Reason Onset Date Comments Refill Request 06/26/[address] Specialty Diagnoses / Procedures Referred By Contac t Referred To Contact CT IMAGING Diagnoses Abnormal weight loss Procedures CT ABD/PEL W IVCON CT ABD & PELVIS W/CONTRAST Martha Boston PA-C [address] [place] [address] [place] [address] Referral ID Status Reason Start Date Expiration Date V isits Requested Visits Authorized [id number] Closed Auto-Generate d Referral 07/09/2022 08/08/2022 2 2 Reason Comments Radiology US Specialty Diagnoses / Procedures Referred By Carlos t Referred To Contact US IMAGING Diagnoses Abnormal weight loss Procedures US ABD RT UPPER QUADRANT US ABDOMINAL REAL TIME W/IMAGE LIMITED Martha Boston PA-C [address] [facility] [place] [address] [place] [address] Referral ID Status Reason Start Date Expiration Date V isits Requested Visits Authorized [id number] Closed Auto-Generate d Referral 06/25/2022 07/25/2023 1 1 Care Teams (unrecognized sec tion and content) [employer] Repairer Relationship Specialty Start Date End Date Nadir Grady MD [address] [place] [address] PCP - General Family Practice 08/04/15 [facility] [address] [place] [address] Pharmacist Pharmacy 10/20/20 [facility] [address] [facility] [place] [address] Pharmacist Pharmacy 03/15/21 [employer] Repairer Relationship Specialty Start Date End Date Nadir Grady MD [address] [place] [address] PCP - General Family Practice 08/04/15 [facility] [address] [place] [address] Pharmacist Pharmacy 10/20/20 [facility] [address] [facility] [place] [address] Pharmacist Pharmacy 03/15/21 [employer]ogenics Repairer Relationship Specialty Start Date End Date Nadir Grady MD [address] [place] [address] PCP - General Family Practice 08/04/15 [facility] [address] [facility] [place] [address] Pharmacist Pharmacy 10/20/20 Karen PiperPutnam [facility] [address] [facility] [place] [place] [address] Pharmacist Pharmacy 03/15/21 [employer]ogenics Repairer Relationship Specialty Start Date End Date Nadir Grady MD [address] [facility] [place] [address] PCP - General Family Practice 08/04/15 [facility] vegaPut[facility] [address] [facility] [place] [address] Pharmacist Pharmacy 10/20/20 [place], KarenPutnam [facility] [address] [facility] [place] [address] Pharmacist Pharmacy 03/15/21 Cryogenics Repairer Relationship Specialty Start Date End Date Nadir Grady MD [address] [facility] [place] [address] PCP - General Family Practice 08/04/15 [facility]ud [facility]rellPut[facility] [address] [facility] [place] [address] Pharmacist Pharmacy 10/20/20 [place] KarenHu [facility] [address] [facility] [place] [address] Pharmacist Pharmacy 03/15/21 Yolanda Dean (Camelia) [address] [place] [address] Referring Pulmonary and Critical Care Medicine 02/07/22 [employer]ogenics Repairer Relationship Specialty Start Date End Date Nadir Grady MD [address] [facility] [place] [address] PCP - General Family Practice 08/04/15 [facility]Put[facility] [address] [facility] [place] [address] Pharmacist Pharmacy 10/20/20 Karen PiperPut[facility] [address] [facility] [place] [address] Pharmacist Pharmacy 03/15/21 Yolanda Dean (Pa) [address] [place] [address] Referring Pulmonary and Critical Care Medicine 02/07/22 [employer]ogenics Repairer Relationship Specialty Start Date End Date Nadir Grady MD [address] [facility] [place] [address] PCP - General Family Practice 08/04/15 [facility]ud [facility]Put[facility] [address] [facility] [place] [address] Pharmacist Pharmacy 10/20/20 Karen [facility]perPut[facility] [address] [facility] [place] [address] Pharmacist Pharmacy 03/15/21 Yolanda Dean (Pa) [address] [place] [address] Referring Pulmonary and Critical Care Medicine 02/07/22 [employer]ogenics Repairer Relationship Specialty Start Date End Date Nadri Grady MD [address] [place] [address] PCP - General Family Practice 08/04/15 [facility]ud [facility] [address] [place] [address] Pharmacist Pharmacy 10/20/20 Karen PiperPut[facility] [address] [facility] [place] [address] Pharmacist Pharmacy 03/15/21 Yolanda Dean (Pa) [address] [facility] [place] [address] Referring Pulmonary and Critical Care Medicine 02/07/22 [employer]ogenics Repairer Relationship Specialty Start Date End Date Nadri Grady MD [address] [place] [address] PCP - General Family Practice 08/04/15 [facility] [address] [facility] [place] [address] Pharmacist Pharmacy 10/20/20 [place] KarenPut[facility] [address] [place] [address] Pharmacist Pharmacy 03/15/21 Yolanda Dean (Pa) [address] [facility] [place] [address] Referring Pulmonary and Critical Care Medicine 02/07/22 Cryogenics Repairer Relationship Specialty Start Date End Date Nadir Grady MD [address] [place] [address] PCP - General Family Practice 08/04/15 [facility]Christian [facility] [address] [place] [address] Pharmacist Pharmacy 10/20/20 Feliz KarenPut[facility] [address] [facility] [place] [address] Pharmacist Pharmacy 03/15/21 Yolanda Dean (Pa) [address] [facility] [place] [address] Referring Pulmonary and Critical Care Medicine 02/07/22 [employer]ogenics Repairer Relationship Specialty Start Date End Date Nadir Grady MD [address] [place] [address] PCP - General Family Practice 08/04/15 [facility]Ar[facility]ud vegaPut[facility] [address] [place] [address] Pharmacist Pharmacy 10/20/20 FelizKaren florPutnam County [facility] [address] [place] [address] Pharmacist Pharmacy 03/15/21 Yolanda Dean (Pa) [address] [place] [address] Referring Pulmonary and Critical Care Medicine 02/07/22 Cryogenics Repairer Relationship Specialty Start Date End Date Nadir Grady MD [address] [place] [address] PCP - General Family Practice 08/04/15 [facility]Arnaud vegaPut[facility] [address] [place] [address] Pharmacist Pharmacy 10/20/20 Karen PiperPut[facility] [address] [place] [address] Pharmacist Pharmacy 03/15/21 Yolanda Dean (Pa) [address] [place] [address] Referring Pulmonary and Critical Care Medicine 02/07/22 Cryogenics Repairer Relationship Specialty Start Date End Date Nadir Grady MD [address] [place] [address] PCP - General Family Practice 08/04/15 [facility] [address] [facility] [place] [address] Pharmacist Pharmacy 10/20/20 [place] ArmKarenPutnam County [facility] [address] [place] [address] Pharmacist Pharmacy 03/15/21 Yolanda Dean (Pa) [address] [facility]rownpoint [place] [address] Referring Pulmonary and Critical Care Medicine 02/07/22 Cryogenics Repairer Relationship Specialty Start Date End Date Nadir Grady MD [address] [place] [address] PCP - General Family Practice 08/04/15 [facility]Arnaud vegaPut[facility] [address] [place] [address] Pharmacist Pharmacy 10/20/20 [place] ArmKarenPutnam County [facility] [address] [facility] [place] [address] Pharmacist Pharmacy 03/15/21 Yolanda Dean (Pa) [address] [facility]ul [facility] [place] [address] Referring Pulmonary and Critical Care Medicine 02/07/22 Cryogenics Repairer Relationship Specialty Start Date End Date Nadir Grady MD [address] [place] [address] PCP - General Family Practice 08/04/15 Sharri BriankatiPutnam [facility] [address] [place] [address] Pharmacist Pharmacy 10/20/20 [place] ArmKarenPutnam County [facility] [address] [place] [address] Pharmacist Pharmacy 03/15/21 Yolanda Dean (Pa) [address] [facility] [place] [address] Referring Pulmonary and Critical Care Medicine 02/07/22 Cryogenics Repairer Relationship Specialty Start Date End Date Nadir Grady MD [address] [place] [address] PCP - General Family Practice 08/04/15 Arnaud HarrellPut[facility] [address] [place] [address] Pharmacist Pharmacy 10/20/20 Karen PiperPut[facility] [address] [place] [address] Pharmacist Pharmacy 03/15/21 Yolanda Dean (Pa) [address] [place] [address] Referring Pulmonary and Critical Care Medicine 02/07/22 Cryogenics Repairer Relationship Specialty Start Date End Date Nadir Grady MD [address] [place] [address] PCP - General Family Practice 08/04/15 Arnaud Harrell, [facility] [address] [place] [address] Pharmacist Pharmacy 10/20/20 Karen PiperPut[facility] [address] [place] [address] Pharmacist Pharmacy 03/15/21 Yolanda Dean (Pa) [address] [place] [address] Referring Pulmonary and Critical Care Medicine 02/07/22 Cryogenics Repairer Relationship Specialty Start Date End Date Nadir Grady MD [address] [place] [address] PCP - General Family Practice 08/04/15 [facility]Arnaud vegaPut[facility] [address] [place] [address] Pharmacist Pharmacy 10/20/20 Karen PiperPut[facility] [address] [place] [address] Pharmacist Pharmacy 03/15/21 Yolanda Dean (Pa) [address] [place] [address] Referring Pulmonary and Critical Care Medicine 02/07/22 Cryogenics Repairer Relationship Specialty Start Date End Date Nadir Grady MD [address] [place] [address] PCP - General Family Practice 08/04/15 ToddArnaud vegaPutnam County [facility] [address] [place] [address] Pharmacist Pharmacy 10/20/20 Karen PiperPut[facility] [address] [place] [address] Pharmacist Pharmacy 03/15/21 Yolanda Dean (Pa) [address] [place] [address] Referring Pulmonary and Critical Care Medicine 02/07/22 Cryogenics Repairer Relationship Specialty Start Date End Date Nadir Grady MD [address] [place] [address] PCP - General Family Medicine 08/04/15 ToddArnaud vega, [facility] [address] [place] [address] Pharmacist Pharmacy 10/20/20 Karen PiperPut[facility] [address] [place] [address] Pharmacist Pharmacy 03/15/21 Yolanda Dean (Pa) [address] [facility]crownpoint health [place] [address] Referring Pulmonary and Critical Care Medicine 02/07/22 Cryogenics Repairer Relationship Specialty Start Date End Date Nadir Grady MD [address] [place] [address] PCP - General Family Medicine 08/04/15 Arnaud Harrell, [facility] [address] [place] [address] Pharmacist Pharmacy 10/20/20 Karen PiperPut[facility] [address] [place] [address] Pharmacist Pharmacy 03/15/21 Yolanda Dean (Pa) [address] [facility] [place] [address] Referring Pulmonary and Critical Care Medicine 02/07/22 Cryogenics Repairer Relationship Specialty Start Date End Date Nadir Grady MD [address] [place] [address] PCP - General Family Medicine 08/04/15 Arnaud Harrell, [facility] [address] [place] [address] Pharmacist Pharmacy 10/20/20 Feliz Karen, [facility] [address] [place] [address] Pharmacist Pharmacy 03/15/21 Yolanda Dean (Pa) [address] [place] [facility] [place] [address] Referring Pulmonary and Critical Care Medicine 02/07/22 Cryogenics Repairer Relationship Specialty Start Date End Date Nadir Grady MD [address] [place] [address] PCP - General Family Medicine 08/04/15 [facility]Arnaud vegaPut[facility] [address] [place] [address] Pharmacist Pharmacy 10/20/20 Feliz KarenPut[facility] [address] [place] [address] Pharmacist Pharmacy 03/15/21 Yolanda Dean (Pa) [address] [place] [address] Referring Pulmonary and Critical Care Medicine 02/07/22 Cryogenics Repairer Relationship Specialty Start Date End Date Nadir Grady MD [address] [place] [address] PCP - General Family Medicine 08/04/15 Arnaud [facility]rellPut[facility] [address] [place] [address] Pharmacist Pharmacy 10/20/20 Karen PiperPut[facility] [address] [place] [address] Pharmacist Pharmacy 03/15/21 Yolanda Dean (Pa) [address] [place] [address] Referring Pulmonary and Critical Care Medicine 02/07/22 Cryogenics Repairer Relationship Specialty Start Date End Date Nadir Grady MD [address] [place] [address] PCP - General Family Medicine 08/04/15 ToddArnaud vegaPutnam [facility] [address] [place] [address] Pharmacist Pharmacy 10/20/20 Karen PiperPut[facility] [address] [facility] [place] [address] Pharmacist Pharmacy 03/15/21 Yolanda Dean (Pa) [address] [facility] [place] [address] Referring Pulmonary and Critical Care Medicine 02/07/22 Cryogenics Repairer Relationship Specialty Start Date End Date Nadir Grady MD [address] [place] [address] PCP - General Family Medicine 08/04/15 Sharri BriankatiPut[facility] [address] [place] [address] Pharmacist Pharmacy 10/20/20 Karen PiperPut[facility] [address] [place] [address] Pharmacist Pharmacy 03/15/21 Yolanda Dean (Pa) [address] [facility]afcrownpoint health care [place] [address] Referring Pulmonary and Critical Care Medicine 02/07/22 Cryogenics Repairer Relationship Specialty Start Date End Date Nadir Grady MD [address] [place] [address] PCP - General Family Medicine 08/04/15 Sharri Briankati, [facility] [address] [place] [address] Pharmacist Pharmacy 10/20/20 Karen PiperPut[facility] [address] [place] [address] Pharmacist Pharmacy 03/15/21 Yolanda Dean (Pa) [address] [facility] [place] [address] Referring Pulmonary and Critical Care Medicine 02/07/22 Cryogenics Repairer Relationship Specialty Start Date End Date Nadir Grady MD [address] [place] [address] PCP - General Family Medicine 08/04/15 Arnaud HarrellPut[facility] [address] [place] [address] Pharmacist Pharmacy 10/20/20 [place] ArmKarenPutnam County [facility] Hospital [address] [place] [address] Pharmacist Pharmacy 03/15/21 Yolanda Dean (Pa) [address] [place] [address] Referring Pulmonary and Critical Care Medicine 02/07/22 Cryogenics Repairer Relationship Specialty Start Date End Date Nadir Grady MD [address] [place] [address] PCP - General Family Medicine 08/04/15 Arnaud [facility]rellPut[facility] [address] [place] [address] Pharmacist Pharmacy 10/20/20 Karen PiperPut[facility] [address] [place] [address] Pharmacist Pharmacy 03/15/21 Yolanda Dean (Pa) [address] [place] [address] Referring Pulmonary and Critical Care Medicine 02/07/22 Cryogenics Repairer Relationship Specialty Start Date End Date Nadir Grady MD [address] [place] [address] PCP - General Family Medicine 08/04/15 Toddsilvia ArnaudPutnam [facility] [address] [place] [address] Pharmacist Pharmacy 10/20/20 Karen PiperPut[facility] [address] [place] [address] Pharmacist Pharmacy 03/15/21 Yolanda Dean (Pa) [address] [place] [address] Referring Pulmonary and Critical Care Medicine 02/07/22 Cryogenics Repairer Relationship Specialty Start Date End Date Nadir Grady MD [address] [place] [address] PCP - General Family Medicine 08/04/15 ToddArnaud vegaPutnam [facility] [address] [place] [address] Pharmacist Pharmacy 10/20/20 Karen PiperPut[facility] [address] [place] [address] Pharmacist Pharmacy 03/15/21 Yolanda Dean (Pa) [address] [place] [address] Referring Pulmonary and Critical Care Medicine 02/07/22 Cryogenics Repairer Relationship Specialty Start Date End Date Nadir Grady MD [address] [place] [address] PCP - General Family Medicine 08/04/15 Toddsilvia Arnaud, [facility] [address] [place] [address] Pharmacist Pharmacy 10/20/20 Feliz, KarenPut[facility] [address] [place] [address] Pharmacist Pharmacy 03/15/21 Yolanda Dean (Pa) [address] [facility]rown[facility] [place] [address] Referring Pulmonary and Critical Care Medicine 02/07/22 Cryogenics Repairer Relationship Specialty Start Date End Date Nadir Grady MD [address] [place] [address] PCP - General Family Medicine 08/04/15 Arnaud Harrell, [facility] [address] [place] [address] Pharmacist Pharmacy 10/20/20 Karen PiperPut[facility] [address] [place] [address] Pharmacist Pharmacy 03/15/21 Yolanda Dean (Pa) [address] [facility] [place] [place] [address] Referring Pulmonary and Critical Care Medicine 02/07/22 Cryogenics Repairer Relationship Specialty Start Date End Date Nadir Grady MD [address] [place] [address] PCP - General Family Medicine 08/04/15 Arnaud Harrell, [facility] [address] [place] [address] Pharmacist Pharmacy 10/20/20 Karen PiperPut[facility] [address] [place] [address] Pharmacist Pharmacy 03/15/21 Yolanda Dean (Pa) [address] [place] [address] Referring Pulmonary and Critical Care Medicine 02/07/22 Cryogenics Repairer Relationship Specialty Start Date End Date Nadir Grady MD [address] [place] [address] PCP - General Family Medicine 08/04/15 ToddArnaud vegaPutnam [facility] [address] [place] [address] Pharmacist Pharmacy 10/20/20 Glen ArmKaren florPutnam County [facility] Hospital [address] [place] [address] Pharmacist Pharmacy 03/15/21 Yolanda Dean (Pa) [address] [facility] [place] [place] [address] Referring Pulmonary and Critical Care Medicine 02/07/22 Cryogenics Repairer Relationship Specialty Start Date End Date Nadir Grady MD [address] [place] [address] PCP - General Family Medicine 08/04/15 ToddArnaud vegaPutnam [facility] [address] [place] [address] Pharmacist Pharmacy 10/20/20 FelizKaren florPutnam County [facility] [address] [place] [address] Pharmacist Pharmacy 03/15/21 Yolanda Dean (Pa) [address]ul [place] [address] Referring Pulmonary and Critical Care Medicine 02/07/22 Cryogenics Repairer Relationship Specialty Start Date End Date Nadir Grady MD [address] [place] [address] PCP - General Family Medicine 08/04/15 Sharri BriankatiPut[facility] [address] [place] [address] Pharmacist Pharmacy 10/20/20 Glen ArmKarenPutnam County [facility] [address] [facility] [place] [place] [address] Pharmacist Pharmacy 03/15/21 Yolanda Dean (Pa) [address] [facility] [place] [address] Referring Pulmonary and Critical Care Medicine 02/07/22 Cryogenics Repairer Relationship Specialty Start Date End Date Nadir Grady MD [address] [place] [address] PCP - General Family Medicine 08/04/15 Arnaud HarrellPut[facility] [address] [place] [address] Pharmacist Pharmacy 10/20/20 FelizKarenPutnam [facility] [address] [place] [address] Pharmacist Pharmacy 03/15/21 Yolanda Dean (Pa) [address] [facility]afcrownpoint [facility] [place] [address] Referring Pulmonary and Critical Care Medicine 02/07/22 Cryogenics Repairer Relationship Specialty Start Date End Date Nadir Grady MD [address] [place] [address] PCP - General Family Medicine 08/04/15 Arnaud HarrellPut[facility] [address] [place] [address] Pharmacist Pharmacy 10/20/20 [place] ArmKarenPutnam [facility] [address] [place] [address] Pharmacist Pharmacy 03/15/21 Yolanda Dean (Pa) [address] [place] [address] Referring Pulmonary and Critical Care Medicine 02/07/22 Cryogenics Repairer Relationship Specialty Start Date End Date Nadir Grady MD [address] [place] [address] PCP - General Family Medicine 08/04/15 [facility]Ar[facility]ud vegaPut[facility] [address] [place] [address] Pharmacist Pharmacy 10/20/20 [place] KarenPut[facility] [address] [place] [address] Pharmacist Pharmacy 03/15/21 Yolanda Dean (Pa) [address] [place] [address] Referring Pulmonary and Critical Care Medicine 02/07/22 Cryogenics Repairer Relationship Specialty Start Date End Date Nadir Grady MD [address] [place] [address] PCP - General Family Medicine 08/04/15 Arnaud HarrellPut[facility] [address] [place] [address] Pharmacist Pharmacy 10/20/20 Karen PiperPut[facility] [address] [place] [address] Pharmacist Pharmacy 03/15/21 Yolanda Dean (Pa) [address] [facility] [place] [address] Referring Pulmonary and Critical Care Medicine 02/07/22 Cryogenics Repairer Relationship Specialty Start Date End Date Nadir Grady MD [address] [place] [address] PCP - General Family Medicine 08/04/15 Sharri rBiankatiPutnam County Memorial Hospital [address] [facility] [place] [place] [address] Pharmacist Pharmacy 10/20/20 Feliz KarenPutnam [facility] [address] [facility] [place] [address] Pharmacist Pharmacy 03/15/21 Yolanda Dean (Pa) [address] [place] [address] Referring Pulmonary and Critical Care Medicine 02/07/22 Cryogenics Repairer Relationship Specialty Start Date End Date Nadir Grady MD [address] [place] [address] PCP - General Family Medicine 08/04/15 ToddBrian vegakatiPutnam County Memorial Hospital [address] [place] [address] Pharmacist Pharmacy 10/20/20 [place], KarenPutnam [facility] [address] [place] [address] Pharmacist Pharmacy 03/15/21 Yolanda Dean (Pa) [address] [place] [address] Referring Pulmonary and Critical Care Medicine 02/07/22 Cryogenics Repairer Relationship Specialty Start Date End Date Nadir Grady MD [address] [place] [address] PCP - General Family Medicine 08/04/15 Sharri Arnaud, [facility] [address] [facility] [address] Pharmacist Pharmacy 10/20/20 Karen PiperPut[facility] [address] [facility] [place] [address] Pharmacist Pharmacy 03/15/21 Yolanda Dean (Camelia) [address] [place] [address] Referring Pulmonary and Critical Care Medicine 02/07/22 Cryogenics Repairer Relationship Specialty Start Date End Date Nadir Grady MD [address] [place] [address] PCP - General Family Medicine 08/04/15 [facility]il[facility] BriankatiPut[facility] [address] [place] [address] Pharmacist Pharmacy 10/20/20 Karen PiperPut[facility] [address] [place] [address] Pharmacist Pharmacy 03/15/21 Yolanda Dean (Pa) [address] [place] [address] Referring Pulmonary and Critical Care Medicine 02/07/22 Cryogenics Repairer Relationship Specialty Start Date End Date Nadir Grady MD [address] [place] [address] PCP - General Family Medicine 08/04/15 Sharri Briankati, [facility] [address] [place] [address] Pharmacist Pharmacy 10/20/20 [facility] [address] [facility] [place] [place] [address] Pharmacist Pharmacy 03/15/21 Yolanda Dean (Pa) [address] [place] [address] Referring Pulmonary and Critical Care Medicine 02/07/22 [employer]ogenics Repairer Relationship Specialty Start Date End Date Nadir Grady MD [address] [place] [address] PCP - General Family Medicine 08/04/15 [facility] [address] [facility] [place] [address] Pharmacist Pharmacy 10/20/20 [facility] [address] [facility] [place] [address] Pharmacist Pharmacy 03/15/21 Yolanda Dean (Pa) [address] [place] [address] Referring Pulmonary and Critical Care Medicine 02/07/22 Cryogenics Repairer Relationship Specialty Start Date End Date Nadir Grady MD [address] [facility] [place] [address] PCP - General Family Medicine 08/04/15 [facility] [address] [facility] [place] [address] Pharmacist Pharmacy 10/20/20 [facility] [address] [facility] [place] [address] Pharmacist Pharmacy 03/15/21 Yolanda Dean PA [address] [facility] [place] [address] Referring Pulmonary and Critical Care Medicine 02/07/22 Cryogenics Repairer Relationship Specialty Start Date End Date Nadir Grady MD [address] [facility] [place] [address] PCP - General Family Medicine 08/04/15 [facility] [address] [place] [address] Pharmacist Pharmacy 10/20/20 Karen Piper, [facility] [address] [place] [address] Pharmacist Pharmacy 03/15/21 Yolanda Dean PA [address] [place] [address] Referring Pulmonary and Critical Care Medicine 02/07/22 Cryogenics Repairer Relationship Specialty Start Date End Date Nadir Grady MD [address] [place] [address] PCP - General Family Medicine 08/04/15 Arnaud Harrell, [facility] [address] [place] [address] Pharmacist Pharmacy 10/20/20 Karen Piper, [facility] [address] [facility] [place] [address] Pharmacist Pharmacy 03/15/21 Yolanda Dean PA [address] [place] [address] Referring Pulmonary and Critical Care Medicine 02/07/22 Cryogenics Repairer Relationship Specialty Start Date End Date Nadir Grady MD [address] [place] [address] PCP - General Family Medicine 08/04/15 Arnaud Harrell, [facility] [address] [place] [address] Pharmacist Pharmacy 10/20/20 Karen Piper, [facility] [address] [place] [address] Pharmacist Pharmacy 03/15/21 Yolanda Dean PA [address] [place] [address] Referring Pulmonary and Critical Care Medicine 02/07/22 Cryogenics Repairer Relationship Specialty Start Date End Date Nadir Grady MD [address] [place] [address] PCP - General Family Medicine 08/04/15 [facility] [address] [facility] [place] [address] Pharmacist Pharmacy 10/20/20 [facility] [address] [place] [address] Pharmacist Pharmacy 03/15/21 Yolanda Dean PA [address] [place] [address] Referring Pulmonary and Critical Care Medicine 02/07/22 Cryogenics Repairer Relationship Specialty Start Date End Date Nadir Grady MD [address] [place] [address] PCP - General Family Medicine 08/04/15 Toddsilvia Arnaud, [facility] [address] [place] [address] Pharmacist Pharmacy 10/20/20 [facility] [address] [place] [address] Pharmacist Pharmacy 03/15/21 Yolanda Dean PA [address] [place] [address] Referring Pulmonary and Critical Care Medicine 02/07/22 Cryogenics Repairer Relationship Specialty Start Date End Date Nadir Grady MD [address] [place], [place] [address] PCP - General Family Medicine 08/04/15 [facility] [address] [place], [place] [address] Pharmacist Pharmacy 10/20/20 Karen Piper, [facility] [address] [place], [place] [address] Pharmacist Pharmacy 03/15/21 Yolanda Dean PA [address] [place], [place] [address] Referring Pulmonary and Critical Care Medicine 02/07/22 FOR RECORDS PERTAINING TO PATIENTS WHO ARE OR HAVE BEEN ENROLLED IN A CHEMICAL DEPENDENCY/SUBSTANCEABUSE PROGRAM, SOME INFORMATION MAY BE OMITTED. This clinical summary was aggregated from multiple sources. Caution should be exercised in using it in the provision of clinical care. This summary normalizes information from multiple sources, and as a consequence, information in this document may materially change the coding, format and clinical context of patient data. In addition, data may be omitted in some cases. CLINICAL DECISIONS SHOULD BE BASED ON THE PRIMARY CLINICAL RECORDS. [employer] [facility]. provides no warranty or guarantee of the accuracy or completeness of information in this document.
[2023-10-09 18:49] LABS: International Normalized Ratio 0.9; Prothrombin Time (Protime)PT. 12.4 SECONDS (11.7-14.9)
[2023-10-09] MEDS: Nitroglycerin Infusion 250 ML 3 MG IV (18:49)
[2023-10-09 18:55] LABS: Anion Gap 7 (5-15); BUN 31 mg/dL (7-18); BUN/Creat Ratio 25.6 RATIO (10-20); Calcium,Total 8.6 mg/dL (8.5-10.1); Chloride 105 mmol/L (98-107); Creatinine, Serum 1.21 mg/dL (0.70-1.30); EST Glomerular Filtration Rate 63 mL/min (>60); Est Glom Filt Rate - Afr Amer 76 mL/min (>60); Estimated Creatinine Clearance 70.42 ml/min; Glucose 285 mg/dL (74-106); Magnesium 2.1 mg/dL (1.6-2.6); Potassium 4.4 mmol/L (3.5-5.1); Sodium Level 138 mmol/L (136-145); Troponin-I HS (w/2H Reflex) 5 pg/mL (3.0-78.0)
[2023-10-09] MEDS: Heparin Injection (Vial) 5,000 UNIT/ML VIAL 4000 UNIT IV (19:14)
[2023-10-09] MEDS: HEPARIN/D5w 25,000 UNITS 25,000 UNITS/250 ML IV.SOLN. 10 UNITS CONT INF (19:17)
--- NOTE | 2023-10-09 19:18 | ED.RN ---
PT REPORTS CP 10 AT THIS TIME.
--- NOTE | 2023-10-09 20:05 | HP.PCM.HOS_ITS ---
HPI - General General Date of Admission: 10/09/23 Date of Service: 10/09/23 Chief Complaint: Worsening of chest pain/pressure chest pain today along with shortness of breath HPI Narrative PRESTON BATES, is a 68 M with history of chronic CAD status post multiple stents chest pain what he describes as pressure in the middle with radiation to left hand along with numbness and tingling. He states he has exertional chest pressure every time he exert for last few years along with shortness of breath. But today while he was cleaning his garage he felt chest pressure manage initially went away after resting. But when he was resting inside chest pressure came back with shortness of breath in addition to left arm and interscapular area. He also felt dizzy lightheaded but not diaphoretic. Patient last PCI and stent was in July 22, 2021. Patient did not had syncope recently but has history of syncope in October 2021 when had a loop recorder in November 2021. Patient last stress test in June 2023 was normal pharmacological perfusion stress test with preserved EF. Twelve-lead EKG done in the ED reviewed and shows ST depression in V5 V6 as compared to previous EKG of 20 Jan 2023. Otherwise sinus tachycardia 105 bpm. Patient blood pressure was high and sinus tachycardic 121 bpm came in ED. Currently it is better. Vitals labs chest x-ray reviewed and discussed assessment and plan. [facility] Medical History Atherosclerotic heart disease of [place] coronary artery without angina pectoris Bilateral carotid artery stenosis BPH (benign prostatic hyperplasia) COVID-19 (06/2021) DDD (degenerative disc disease) Elevated LFTs Essential (primary) hypertension Hyperlipidemia Sciatica Syncope (10/2021) Tremor of both hands Type 2 diabetes mellitus Home Medications aspirin 81 mg tablet,delayed release 81 mg PO DAILY@0800 [facility] 09/13/13 [History Last Taken 02/11/22] omega 1-xls-tda-fish oil 1,000 mg (120 mg-180 mg) capsule (Fish Oil) 1,000 mg PO QDAY supplement 01/06/18 [History Last Taken 12/29/21] metformin 500 mg tablet,extended release 24 hr 500 mg PO BID 07/25/20 [History Last Taken 02/10/22] lorazepam 0.5 mg tablet 0.5 mg PO BID PRN Anxiety 05/23/22 [History Last Taken Unknown] pioglitazone 30 mg tablet (Actos) 30 mg PO DAILY 06/19/22 [History Last Taken Unknown] ferrous sulfate 325 mg (65 mg iron) tablet 325 mg PO DAILY 06/28/22 [History Last Taken Unknown] pantoprazole 40 mg tablet,delayed release (Protonix) 40 mg PO DAILY #30 tabs 07/16/22 [Rx Last Taken Unknown] nitroglycerin 0.4 mg sublingual tablet 0.4 mg sublingual Q5M PRN Chest Pain #25 tabs 09/03/22 [Rx Last Taken Unknown] fluticasone propionate 50 mcg/actuation nasal spray,suspension 1 spray intranasal BID 10/23/22 [History Last Taken Unknown] ranolazine 500 mg tablet,extended release,12 hr 500 mg PO BID #60 tabs 05/15/23 [Rx Last Taken Unknown] atorvastatin 80 mg tablet 80 mg PO DAILY cholesterol #90 tabs 07/02/23 [Rx Last Taken Unknown] clopidogrel 75 mg tablet (Plavix) 75 mg PO DAILY #90 tabs 07/02/23 [Rx Last Taken Unknown] Allergy/AdvReac Type Severity Reaction Status Date / Time fludrocortisone Allergy Severe ANGIOEDEMA Verified 10/09/23 18:11 [From [facility]] perfume AdvReac Other Verified 10/09/23 18:11 Family History Sister CAD (coronary artery disease) CVA (cerebral vascular accident) Diabetes Myocardial infarction Hx of CABG Mother Cancer Lung CA Surgical History History of cataract surgery History of coronary artery stent placement (07/23/21) History of hand surgery History of left heart catheterization (02/11/22) History of loop recorder (12/13/21) Hx of appendectomy Social History Smoking Status: Never smoker alcohol intake: never substance use type: does not use caffeine: No what type of physical activity do you participate in: none seatbelt use: always do you feel safe at home: Yes ROS ROS Narrative Constitutional: Reports fatigue and weakness. No fever. HEENT: Reports systems reviewed and no addt'l complaints, except as documented Respiratory/Chest: Exertional dyspnea along with chest pressure CVS: As described in HPI. Gastrointestinal: Denies coffee ground emesis, hematemesis or vomiting Genitourinary: Denies burning urination or new urinary tract symptoms Musculoskeletal: Denies acute joint pain or limited range of motion. No acute injury Neurologic: Denies seizure-like symptoms. skin: No ulcer. No rash Endocrinology: Reports systems reviewed and no addt'l complaints, except as documented Hematologic/Lymphatic: Reports systems reviewed and no addt'l complaints, except as documented Rest 14 ROS are negative except as mentioned in HPI Vital Signs Vital Signs Vital Signs: 10/09/23 18:10 10/09/23 18:49 10/09/23 19:02 Temperature 97.4 F L Temperature Source Temporal Pulse Rate 112 H 96 Respiratory Rate 18 Respiratory Effort Normal Non-Labored Blood Pressure 191/81 H 138/73 H Blood Pressure Mean 117 94 Pulse Ox 95 Oxygen Delivery Method Room Air Weight Weight: 241 lb 10.026 oz Body Mass Index (BMI) 34.7 Physical Exam Narrative General: Alert, Oriented x3, Cooperative HEENT: Atraumatic, PERRLA, EOMI, Normocephalic Oral: No Gingival or Mucosal Lesions/ Ulcerations Neck: Supple, No JVD, Negative Carotid Bruits Chest wall/Lungs: Air entry diminished in bilateral lung bases. No crepitation/rhonchi Cardiovascular: Regular rate, Regular Rhythm, Normal S1, Normal S2, systolic murmur present over right second ICS and B and cardiac apex Abdomen: Bowel Sounds Present, Soft, Non Tender, Non-Distended : No dysuria. No renal angle tenderness. No suprapubic tenderness. Extremities: No edema, Capillary Refill Less than 3 Seconds Skin: No rashes, No breakdown Musculoskeletal: No Tenderness to Palpation of Joints or Extremities. ROM full. Neurological: Cranial nerves II-XII grossly intact, DTR 2+/4. No acute focal neurological deficit. Psych/Mental Status: Normal Affect, Appropriate. Results Lab / Micro Data 10/09/23 18:30 10/09/23 18:30 Labs: Laboratory Results - last 24 hr 10/09/23 18:30: WBC 7.1, RBC 3.87 L, Hgb 11.5 L, Hct 35.0 L, MCV 90.4, MCH 29.7, MCHC 32.9, RDW Std Deviation 42.6, RDW Coeff of Megan 13.0, Plt Count 210, MPV 9.5, Immature Gran % (Auto) 0.400, Neut % (Auto) 63.1, Lymph % (Auto) 25.4, Bullitt % (Auto) 7.7, Eos % (Auto) 2.7, Baso % (Auto) 0.7, Absolute Neuts (auto) 4.5, Absolute Lymphs (auto) 1.81, Nucleated RBC % 0, PT 12.4, INR 0.9, APTT 27.0, Sodium 138, Potassium 4.4, Chloride 105, Carbon Dioxide 26.0, Anion Gap 7, BUN 31 H, Creatinine 1.21, Estim Creat Clear Calc 70.42, Est GFR (MDRD) Af Amer 76, Est GFR (MDRD) Non-Af 63, BUN/Creatinine Ratio 25.6 H, Glucose 285 H, Calcium 8.6, Magnesium 2.1, Troponin I High Sens 5 Imaging Radiology Impression Chest X-Ray 10/09/23 18:40 IMPRESSION: No acute disease Electronically Signed: Odin Villaseñor MD at 18:53 EST Reading Location ID and State: [facility] / [place] Tel , Service support , Assessment & Plan Assessment/Plan (1) Unstable angina: PLAN: Plan This 68-year-old gentleman with protracted history of CAD status post multiple PCI/stent admitted with exertional chest pain consistent with unstable angina. 1. Atypical chest pain most likely unstable angina:Patient is being admitted to PCU. SHARRI risk score is 5 out of 7. First troponin is negative. ED physician discussed with cardiology Dr. Elizondo and is being consulted. Patient started on IV heparin drip. Patient had last PCI in July [address] Cates. Proximal left circumflex in-stent restenosis 90% with RODDY. After that patient had pharmacological myocardial nuclear stress test in June 23 which reported normal. Last echo in July 2020 reported EF normal with [place]-normal. Stage I?oxygen. Bubble contrast today negative. Mild TR with PASP 35 mmHg. 2D echo ordered and I do not see any recent echo. Chest x-ray new lesion does not show a acute disease. 2. CAD status post multiple cardiac stents with history of syncope in November 2021 status post loop recorder. No recent syncope. Continue patient's home cardiac medications. Patient on baby aspirin, Plavix, atorvastatin high intens ity and ranolazine. Patient not on beta-seun at home. Started on low-dose carvedilol 3.25 mg twice daily 3. Diabetes mellitus type 2 complicated with diabetic neuropathy: Glucose is high in BMP. Started on Lantus 10 units subcutaneous at night daily. Hold metformin and pioglitazone. Accu-Chek ACH cover with block sliding scale. 4. Hypertension and dyslipidemia: Blood pressure was elevated in ED but has improved and normal now 118/69. Heart rate 87/min 5. Dyslipidemia: 6. Mild normocytic normochromic anemia: H&H 11.5/35%. Platelet count normal 210. DVT prophylaxis: Patient on IV heparin drip. Living will/advanced directive/end of life care: Patient does have living will o r advanced directive. His brother is power of ip attorney for health. After discussion of benefits/risks procedures involved with full code, DNR CC arrest and DNR CC, the patient opted for DNRCC arrest with no intubation. Patient brother is in agreement Patient doesn't want artificial life support including intubation, tube feed, ventilator and/chest compression, central venous catheter, vasopressor and DC shock if needed Total time spent in [id number] encounter in discussion of advanced directive 17 minutes. Laboratory Results 10/09/23 18:30: WBC 7.1, RBC 3.87 L, Hgb 11.5 L, Hct 35.0 L, MCV 90.4, MCH 29.7, MCHC 32.9, RDW Std Deviation 42.6, RDW Coeff of Megan 13.0, Plt Count 210, MPV 9.5, Immature Gran % (Auto) 0.400, Neut % (Auto) 63.1, Lymph % (Auto) 25.4, Bullitt % (Auto) 7.7, Eos % (Auto) 2.7, Baso % (Auto) 0.7, Absolute Neuts (auto) 4.5, Absolute Lymphs (auto) 1.81, Nucleated RBC % 0, PT 12.4, INR 0.9, APTT 27.0, Sodium 138, Potassium 4.4, Chloride 105, Carbon Dioxide 26.0, Anion Gap 7, BUN 31 H, Creatinine 1.21, Estim Creat Clear Calc 70.42, Est GFR (MDRD) Af Amer 76, Est GFR (MDRD) Non-Af 63, BUN/Creatinine Ratio 25.6 H, Glucose 285 H, Calcium 8.6, Magnesium 2.1, Troponin I High Sens 5 Clinical Impression(s) from Imaging Studies Chest X-Ray 10/09/23 18:40 IMPRESSION: No acute disease Electronically Signed: Odin Villaseñor MD at 18:53 EST , Charges/Coding Visit Charges Inpatient E&M: 88550 Init Hosp L3 Procedures Hospitalists Procedures: 79762 Advncd Care Plan 30 Min
--- OUTSIDE RECORDS SUMMARY | 2023-10-09 20:28 | XMS RPT_ITS | CCD ---
Author Name Unknown Address [id number] [place] [address] Organization [facility] Care Team Providers Care Insulation Helper Name Role Phone Jorge, Andrew Y Unavailable Unavailable MD Liya, Jd S Unavailable Nidhi RN, Beulah Ye Unavailable Unavailable Nidhi RN, Beulah A Unavailable Unavailable RIAN Bell, Griselda [place] Unavailable Unavailjuan Terrell RN, Beulah A Unavailable Unavailable RIAN Bell, Griselda [place] Unavailable UnavailSELENE Mathew Unavailable Unavailable SELENE WILBURN Unavailable Unavailable Nidhi OMDI, Beulah Ye Unavailable Unavailable RIAN Bell, Griselda [place] Unavailable UnavailAndrew Barone Unavailable Unavailable Nadir Grady MD Primary Care Provider [facility], Keti Unavailable [facility], Karen Unavailable Yolanda Dean (Pa) Unavailable Nadir Grady MD Primary Care Provider [facility], Keti Unavailable [facility], Karen Unavailable Yolanda Dean (Pa) Unavailable Nadir Grady MD Primary Care Provider [facility], Keti Unavailable [facility], Karen Unavailable Yolanda Dean (Pa) Unavailable Nadir Grady MD Primary Care Provider [facility], Keti Unavailable [facility], Karen Unavailable Yolanda Dean (Pa) Unavailable [phone] HANY JOHNSON Attending Unavaila THAI Williamson Referring Unavailable YSABEL, NADIR A Primary Care Unavailable Yolanda Dean (Camelia) Unavailable [phone] Yolanda Jones Unavailable [phone] [facility], Keti Unavailable YSABEL, NADIR A Primary [...] Translations: [FLUDROCORTISONE ] Drug Allergy 04-25-2022 Angioedema [facility] Work Phone: Medications Current Medications Medication Drug [...] disease (20 sources) Atherosclerotic heart disease of cahto coronary artery without angina pectoris; Translations: [Lipid-rich [...] (3 sources) Long-term drug therapy; Translations: [Other intermediate (current) drug therapy] Onset: 01-07-2017 01-07-2017 Past [...] 07-09-2016 Episodic Other aftercare (9 sources) Other manager terminal (current) drug therapy; Translations: [Other intermediate (current) drug therapy] Onset: 01-07-2017 01-07-2017 Episodic Other aftercare (20 sources) Patient encounter status; Translations: [Other manager terminal (current) drug therapy] Onset: 03-02-2019 11-08-2021 Episodic [...] 97.81 [degF] Fer Merrill APRN.CNP Work Phone: [facility] 06-26-2023 09:26-0400 Body weight 84.46 kg Fer Merrill ESTIMATION MANAGER.SHIPYARD HELPER Work Phone: [facility] 06-26-2023 09:26-0400 Diastolic blood pressure 80 mm[Hg] Fer Merrill ESTIMATION MANAGER.SHIPYARD HELPER Work Phone: [facility] 06-26-2023 09:26-0400 Heart rate 72 /min Fer Merrill ESTIMATION MANAGER.SHIPYARD HELPER Work Phone: [facility] 06-26-2023 09:26-0400 Respiratory rate 16 /min Fer Merrill ESTIMATION MANAGER.SHIPYARD HELPER Work Phone: [facility] 06-26-2023 09:26-0400 SaO2% (BldA) [Mass fraction] 97 % Fer Merrill ESTIMATION MANAGER.SHIPYARD HELPER Work Phone: [facility] 06-26-2023 09:26-0400 Systolic blood pressure 142 mm[Hg] Fer Merrill ESTIMATION MANAGER.SHIPYARD HELPER Work Phone: [facility] 04-01-2023 07:38-0400 Body temperature 97.5 [degF] Blanca Athy PA-C Work Phone: [facility] 04-01-2023 07:38-0400 Body weight 78.93 kg Blanca Athy PA-C Work Phone: [facility] 04-01-2023 07:38-0400 Diastolic blood pressure 74 mm[Hg] Blanca Athy PA-C Work Phone: [facility] 04-01-2023 07:38-0400 Heart rate 68 /min Blanca Athy PA-C Work Phone: [facility] 04-01-2023 07:38-0400 Respiratory rate 16 /min Blanca Athy PA-C Work Phone: [facility] 04-01-2023 07:38-0400 SaO2% (BldA) [Mass fraction] 98 % Blanca Athy PA-C Work Phone: [facility] 04-01-2023 07:38-0400 Systolic blood pressure 142 mm[Hg] Blanca Athy PA-C Work Phone: [facility] 03-10-2023 12:40-0400 Body temperature 98.01 [degF] Ute Rl ESTIMATION MANAGER.SHIPYARD HELPER Work Phone: [facility] 03-10-2023 12:40-0400 Body weight 79.29 kg Ute Rl ESTIMATION MANAGER.SHIPYARD HELPER Work Phone: [facility] 03-10-2023 12:40-0400 Diastolic blood pressure 78 mm[Hg] Ute Rl ESTIMATION MANAGER.SHIPYARD HELPER Work Phone: [facility] 03-10-2023 12:40-0400 Heart rate 71 /min Ute Rl ESTIMATION MANAGER.SHIPYARD HELPER Work Phone: [facility] 03-10-2023 12:40-0400 Respiratory rate 18 /min Ute Rl ESTIMATION MANAGER.SHIPYARD HELPER Work Phone: [facility] 03-10-2023 12:40-0400 SaO2% (BldA) [Mass fraction] 99 % Ute Rl ESTIMATION MANAGER.SHIPYARD HELPER Work Phone: [facility] 03-10-2023 12:40-0400 Systolic blood pressure 136 mm[Hg] Ute Rl ESTIMATION MANAGER.SHIPYARD HELPER Work Phone: [facility] 11-28-2022 12:33-0400 Body height 175 cm Martha DENISE-C Work Phone: [facility] 11-28-2022 12:33-0400 Body temperature 98.1 [degF] Martha Boston PA-C Work Phone: [facility] 11-28-2022 12:33-0400 Body weight 78.47 kg Martha Boston PA-C Work Phone: [facility] 11-28-2022 12:33-0400 Diastolic blood pressure 66 mm[Hg] Martha Boston PA-C Work Phone: [facility] 11-28-2022 12:33-0400 Heart rate 66 /min Martha Botson PA-C Work Phone: [facility] 11-28-2022 12:33-0400 Respiratory rate 16 /min Martha Boston PA-C Work Phone: [facility] 11-28-2022 12:33-0400 Systolic blood pressure 136 mm[Hg] Martha Boston PA-C Work Phone: [facility] 11-21-2022 09:39-0400 Body temperature 97.5 [degF] Jenna Dahlhausen ESTIMATION MANAGER.SHIPYARD HELPER Work Phone: [facility] 11-21-2022 09:39-0400 Body weight 79.92 kg Jenna Dahlhausen ESTIMATION MANAGER.SHIPYARD HELPER Work Phone: [facility] 11-21-2022 09:39-0400 Diastolic blood pressure 70 mm[Hg] Jenna Dahlhausen ESTIMATION MANAGER.SHIPYARD HELPER Work Phone: [facility] 11-21-2022 09:39-0400 Heart rate 73 /min Jenna Dahlhausen ESTIMATION MANAGER.SHIPYARD HELPER Work Phone: [facility] 11-21-2022 09:39-0400 Respiratory rate 18 /min Jenna Dahlhausen ESTIMATION MANAGER.SHIPYARD HELPER Work Phone: [facility] 11-21-2022 09:39-0400 SaO2% (BldA) [Mass fraction] 98 % Jenna Dahlhausen ESTIMATION MANAGER.SHIPYARD HELPER Work Phone: [facility] 11-21-2022 09:39-0400 Systolic blood pressure 115 mm[Hg] Jenna Dahlhausen ESTIMATION MANAGER.SHIPYARD HELPER Work Phone: [facility] 11-12-2022 11:29-0400 Body temperature 97.3 [degF] Fer Merrill ESTIMATION MANAGER.SHIPYARD HELPER Work Phone: [facility] 11-12-2022 11:29-0400 Body weight 80.83 kg Fer Merrill ESTIMATION MANAGER.SHIPYARD HELPER Work Phone: [facility] 11-12-2022 11:29-0400 Diastolic blood pressure 78 mm[Hg] Fer Merrill ESTIMATION MANAGER.SHIPYARD HELPER Work Phone: [facility] 11-12-2022 11:29-0400 Heart rate 86 /min Fer Merrill ESTIMATION MANAGER.SHIPYARD HELPER Work Phone: [facility] 11-12-2022 11:29-0400 Respiratory rate 18 /min Fer Merrill ESTIMATION MANAGER.SHIPYARD HELPER Work Phone: [facility] 11-12-2022 11:29-0400 SaO2% (BldA) [Mass fraction] 97 % Fer Merrill ESTIMATION MANAGER.SHIPYARD HELPER Work Phone: [facility] 11-12-2022 11:29-0400 Systolic blood pressure 142 mm[Hg] Fer Merrill ESTIMATION MANAGER.SHIPYARD HELPER Work Phone: [facility] 10-29-2022 16:10-0500 Body height 177.8 cm Jennifer Winterhaven PA-C Work Phone: [facility] 10-29-2022 16:10-0500 Body temperature 97.9 [degF] Jennifer Savanah PA-C Work Phone: [facility] 10-29-2022 16:10-0500 Body weight 81.19 kg Jennifer Savanah PA-C Work Phone: [facility] 10-29-2022 16:10-0500 Diastolic blood pressure 64 mm[Hg] Jennifer Savanah PA-C Work Phone: [facility] 10-29-2022 16:10-0500 Heart rate 82 /min Jennifer Savanah PA-C Work Phone: [facility] 10-29-2022 16:10-0500 SaO2% (BldA) [Mass fraction] 96 % Jennifer Winterhaven PA-C Work Phone: [facility] 10-29-2022 16:10-0500 Systolic blood pressure 124 mm[Hg] Jennifer Savanah PA-C Work Phone: [facility] 10-14-2022 12:30-0500 Diastolic blood pressure 81 mm[Hg] Thai Santiago MD Work Phone: [facility] 10-14-2022 12:30-0500 Heart rate 82 /min Thai Santiago MD Work Phone: [facility] 10-14-2022 12:30-0500 Respiratory rate 20 /min Thai Santiago MD Work Phone: [facility] 10-14-2022 12:30-0500 SaO2% (BldA) [Mass fraction] 97 % Thai Santiago MD Work Phone: [facility] 10-14-2022 12:30-0500 Systolic blood pressure 175 mm[Hg] Thai Santiago MD Work Phone: [facility] 10-14-2022 11:55-0500 Body temperature 97.5 [degF] Thai Santiago MD Work Phone: [facility] 10-14-2022 11:05-0500 Body height 177.8 cm Thai Santiago MD Work Phone: [facility] 10-14-2022 11:05-0500 Body weight 78.93 kg Thai Santiago MD Work Phone: [facility] 10-05-2022 11:43-0500 Body weight 78.93 kg Nadir Grady MD Work Phone: [facility] 10-05-2022 11:43-0500 Diastolic blood pressure 68 mm[Hg] Nadir Grady MD Work Phone: [facility] 10-05-2022 11:43-0500 Heart rate 77 /min Nadir Grady MD Work Phone: [facility] 10-05-2022 11:43-0500 Respiratory rate 16 /min Nadir Grady MD Work Phone: [facility] 10-05-2022 11:43-0500 SaO2% (BldA) [Mass fraction] 96 % Nadir Grady MD Work Phone: [facility] 10-05-2022 11:43-0500 Systolic blood pressure 110 mm[Hg] Nadir Grady MD Work Phone: [facility] 09-23-2022 13:25-0500 Body temperature 97.81 [degF] Miladys Praisler-Wood ESTIMATION MANAGER.SHIPYARD HELPER Work Phone: [facility] 09-23-2022 13:25-0500 Body weight 81.1 kg Miladys Praisler-Wood ESTIMATION MANAGER.SHIPYARD HELPER Work Phone: [facility] 09-23-2022 13:25-0500 Diastolic blood pressure 72 mm[Hg] Miladys Praisler-Wood ESTIMATION MANAGER.SHIPYARD HELPER Work Phone: [facility] 09-23-2022 13:25-0500 Heart rate 75 /min Miladys Praisler-Wood ESTIMATION MANAGER.SHIPYARD HELPER Work Phone: [facility] 09-23-2022 13:25-0500 Respiratory rate 21 /min Miladys Praisler-Wood ESTIMATION MANAGER.SHIPYARD HELPER Work Phone: [facility] 09-23-2022 13:25-0500 SaO2% (BldA) [Mass fraction] 98 % Miladys Praisler-Wood ESTIMATION MANAGER.SHIPYARD HELPER Work Phone: [facility] 09-23-2022 13:25-0500 Systolic blood pressure 152 mm[Hg] Miladys Praisler-Wood ESTIMATION MANAGER.SHIPYARD HELPER Work Phone: [facility] 09-19-2022 15:25-0500 Body temperature 97.7 [degF] Jenna Dahlhausen ESTIMATION MANAGER.SHIPYARD HELPER Work Phone: [facility] 09-19-2022 15:25-0500 Body weight 78.65 kg Jenna Dahlhausen ESTIMATION MANAGER.SHIPYARD HELPER Work Phone: [facility] 09-19-2022 15:25-0500 Diastolic blood pressure 82 mm[Hg] Jenna Dahlhausen ESTIMATION MANAGER.SHIPYARD HELPER Work Phone: [facility] 09-19-2022 15:25-0500 Heart rate 76 /min Jenna Dahlhausen ESTIMATION MANAGER.SHIPYARD HELPER Work Phone: [facility] 09-19-2022 15:25-0500 Respiratory rate 16 /min Jenna Childsen ESTIMATION MANAGER.SHIPYARD HELPER Work Phone: [facility] 09-19-2022 15:25-0500 SaO2% (BldA) [Mass fraction] 95 % Jennaben Childsen ESTIMATION MANAGER.SHIPYARD HELPER Work Phone: [facility] 09-19-2022 15:25-0500 Systolic blood pressure 128 mm[Hg] Jennacamila Dowlingkeyapedroben ESTIMATION MANAGER.SHIPYARD HELPER Work Phone: [facility] 08-21-2022 09:03-0500 Body weight 78.02 kg Nadir Grady MD Work Phone: [facility] 08-21-2022 09:03-0500 Diastolic blood pressure 74 mm[Hg] Nadir Grady MD Work Phone: [facility] 08-21-2022 09:03-0500 Heart rate 76 /min Nadir Grady MD Work Phone: [facility] 08-21-2022 09:03-0500 Respiratory rate 16 /min Nadir Grady MD Work Phone: [facility] 08-21-2022 09:03-0500 Systolic blood pressure 128 mm[Hg] Nadir Grady MD Work Phone: [facility] 08-05-2022 12:56-0500 Body height 177.8 cm Mike Lucero MD Work Phone: [facility] 08-05-2022 12:56-0500 Body weight 77.11 kg Mike Lucero MD Work Phone: [facility] 08-05-2022 12:56-0500 Diastolic blood pressure 79 mm[Hg] Mike Lucero MD Work Phone: [facility] 08-05-2022 12:56-0500 Heart rate 73 /min Mike Lucero MD Work Phone: [facility] 08-05-2022 12:56-0500 Respiratory rate 18 /min Mike Lucero MD Work Phone: [facility] 08-05-2022 12:56-0500 Systolic blood pressure 159 mm[Hg] Mike Lucero MD Work Phone: [facility] 07-30-2022 15:28-0500 Body weight 77.11 kg Gamal Mathis ESTIMATION MANAGER.SHIPYARD HELPER Work Phone: [facility] 07-30-2022 15:28-0500 Diastolic blood pressure 70 mm[Hg] Gamal Mathis ESTIMATION MANAGER.SHIPYARD HELPER Work Phone: [facility] 07-30-2022 15:28-0500 Heart rate 78 /min Gamal Mathis ESTIMATION MANAGER.SHIPYARD HELPER Work Phone: [facility] 07-30-2022 15:28-0500 Respiratory rate 16 /min Gamal Mathis ESTIMATION MANAGER.SHIPYARD HELPER Work Phone: [facility] 07-30-2022 15:28-0500 Systolic blood pressure 136 mm[Hg] Gamal Mathis ESTIMATION MANAGER.SHIPYARD HELPER Work Phone: [facility] 06-27-2022 09:25-0400 Body height 177.8 cm Thai Santiago MD Work Phone: [facility] 06-27-2022 09:25-0400 Body temperature 97.39 [degF] Thai Santiago MD Work Phone: [facility] 06-27-2022 09:25-0400 Body weight 71.67 kg Thai Santiago MD Work Phone: [facility] 06-27-2022 09:25-0400 Diastolic blood pressure 62 mm[Hg] Thai Santiago MD Work Phone: [facility] 06-27-2022 09:25-0400 Heart rate 80 /min Thai Santiago MD Work Phone: [facility] 06-27-2022 09:25-0400 SaO2% (BldA) [Mass fraction] 97 % Thai Santiago MD Work Phone: [facility] 06-27-2022 09:25-0400 Systolic blood pressure 110 mm[Hg] Thai Santiago MD Work Phone: [facility] 06-25-2022 07:59-0400 Body temperature 98.71 [degF] Martha Boston PA-C Work Phone: [facility] 06-25-2022 07:59-0400 Body weight 70.76 kg Martha Boston PA-C Work Phone: [facility] 06-25-2022 07:59-0400 Diastolic blood pressure 50 mm[Hg] Martha Boston PA-C Work Phone: [facility] 06-25-2022 07:59-0400 Heart rate 76 /min Martha Boston PA-C Work Phone: [facility] 06-25-2022 07:59-0400 Respiratory rate 16 /min Martha Boston PA-C Work Phone: [facility] 06-25-2022 07:59-0400 Systolic blood pressure 80 mm[Hg] Martha Boston PA-C Work Phone: [facility] 05-13-2022 07:45-0400 Body temperature 98.1 [degF] Martha Boston PA-C Work Phone: [facility] 05-13-2022 07:45-0400 Body weight 73.48 kg Martha Boston PA-C Work Phone: [facility] 05-13-2022 07:45-0400 Diastolic blood pressure 66 mm[Hg] Martha Boston PA-C Work Phone: [facility] 05-13-2022 07:45-0400 Heart rate 72 /min Martha Boston PA-C Work Phone: [facility] 05-13-2022 07:45-0400 Respiratory rate 16 /min Martha Boston PA-C Work Phone: [facility] 05-13-2022 07:45-0400 Systolic blood pressure 138 mm[Hg] Martha Boston PA-C Work Phone: [facility] 04-25-2022 13:14-0400 Body temperature 97.81 [degF] Rin Gagnon ESTIMATION MANAGER.SHIPYARD HELPER Work Phone: [facility] 04-25-2022 13:14-0400 Body weight 79.52 kg Rin Goetzh ESTIMATION MANAGER.SHIPYARD HELPER Work Phone: [facility] 04-25-2022 13:14-0400 Diastolic blood pressure 70 mm[Hg] Rin Latiferich ESTIMATION MANAGER.SHIPYARD HELPER Work Phone: [facility] 04-25-2022 13:14-0400 Heart rate 86 /min Rin Goetzh ESTIMATION MANAGER.SHIPYARD HELPER Work Phone: [facility] 04-25-2022 13:14-0400 Respiratory rate 16 /min Rin Goetzh ESTIMATION MANAGER.SHIPYARD HELPER Work Phone: [facility] 04-25-2022 13:14-0400 SaO2% (BldA) [Mass fraction] 97 % Rin Goetzh ESTIMATION MANAGER.SHIPYARD HELPER Work Phone: [facility] 04-25-2022 13:14-0400 Systolic blood pressure 109 mm[Hg] Rin Goetzh ESTIMATION MANAGER.SHIPYARD HELPER Work Phone: [facility] 04-19-2022 08:09-0400 Body temperature 98.2 [degF] Martha Boston PA-C Work Phone: [facility] 04-19-2022 08:09-0400 Body weight 79.83 kg Martha Boston PA-C Work Phone: [facility] 04-19-2022 08:09-0400 Diastolic blood pressure 68 mm[Hg] Martha Boston PA-C Work Phone: [facility] 04-19-2022 08:09-0400 Heart rate 96 /min Martha Boston PA-C Work Phone: [facility] 04-19-2022 08:09-0400 Respiratory rate 18 /min Martha Boston PA-C Work Phone: [facility] 04-19-2022 08:09-0400 Systolic blood pressure 118 mm[Hg] Martha DENISE-C Work Phone: [facility] 02-07-2022 07:50-0400 Body temperature 97.81 [degF] Jenna Dahlhausen ESTIMATION MANAGER.SHIPYARD HELPER Work Phone: [facility] 02-07-2022 07:50-0400 Body weight 78.93 kg Jenna Dahlhausen ESTIMATION MANAGER.SHIPYARD HELPER Work Phone: [facility] 02-07-2022 07:50-0400 Diastolic blood pressure 60 mm[Hg] Jenna Dahlhausen ESTIMATION MANAGER.SHIPYARD HELPER Work Phone: [facility] 02-07-2022 07:50-0400 Heart rate 83 /min Jenna Dahlhausen ESTIMATION MANAGER.SHIPYARD HELPER Work Phone: [facility] 02-07-2022 07:50-0400 Respiratory rate 18 /min Jenna Dahlhausen ESTIMATION MANAGER.SHIPYARD HELPER Work Phone: [facility] 02-07-2022 07:50-0400 SaO2% (BldA) [Mass fraction] 99 % Jenna Dahlhausen ESTIMATION MANAGER.SHIPYARD HELPER Work Phone: [facility] 02-07-2022 07:50-0400 Systolic blood pressure 122 mm[Hg] Jenna Dahlhausen ESTIMATION MANAGER.SHIPYARD HELPER Work Phone: [facility] 02-07-2017 09:55-0400 BMI (Body Mass Index) 26.78 kg/m2 [facility] Work Phone: 02-07-2017 09:55-0400 BP Diastolic 62 mm[Hg] Jd Kern MD [facility] Work Phone: 02-07-2017 09:55-0400 BP Systolic 108 mm[Hg] Jd Kern MD [facility] Work Phone: 02-07-2017 09:55-0400 Height 180.34 cm Jd Kern MD [facility] Work Phone: 02-07-2017 09:55-0400 Pulse (Heart Rate) 78 /min Jd Kern MD [facility] Work Phone: 02-07-2017 09:55-0400 Respiratory Rate 18 /min Jd Kern MD [facility] Work Phone: 02-07-2017 09:55-0400 Weight 87.09 kg Jd Kern MD [facility] Work Phone: 01-08-2017 14:17-0400 Heart rate 81 /min Beulah Terrell RN [facility] Work Phone: 01-08-2017 13:55-0400 BMI (Body Mass Index) 27.05 kg/m2 [facility] Work Phone: 01-08-2017 13:55-0400 Body weight 88 kg Griselda Bell RN [facility] Work Phone: 01-08-2017 13:55-0400 BP Diastolic 60 mm[Hg] Beulah Terrell RN [facility] Work Phone: 01-08-2017 13:55-0400 BP Systolic 100 mm[Hg] Beulah Terrell RN [facility] Work Phone: 01-08-2017 13:55-0400 Height 180.34 cm Beulah Terrell RN [facility] Work Phone: 01-08-2017 13:55-0400 Pulse (Heart Rate) 81 /min Beulah Terrell RN [facility] Work Phone: 01-08-2017 13:55-0400 Respiratory Rate 20 /min Beulah Terrell RN [facility] Work Phone: 01-08-2017 13:55-0400 Weight 88 kg Beulah Terrell RN [facility] Work Phone: Encounters Encounter Date Encounter Type Care Provider Facility Start: 09-03-2023 End: 09-03-2023 ambulatory NADIR GRADY Facility:[facility] Start: 06-26-2023 End: 06-26-2023 Patient encounter procedure Fer Merrill SHIPYARD HELPER Work Phone: [facility] Procedures Date Procedure Procedure Detail [...] CBC W Auto Differential panel - Blood dJ Kern MD Start: 01-08-2017 End: 02-10-2017 Chest x-ray Jd Kern MD Start: 01-08-2017 End: 01-08-2017 Coagulation factor induced.INR assay in platelet poor plasma Jd Kern MD Start: 01-08-2017 End: 02-07-2017 FLOUR MIXER Jd Kern MD Start: 01-08-2017 End: 01-16-2017 Echocardiography Jd Kern MD Start: 01-08-2017 End: 02-10-2017 Electrocardiogram, complete Jd Locke i, MD Start: 01-08-2017 End: 02-07-2017 Follow Up Appt 3 months Abdirahman Solano Start: 01-08-2017 End: 02-10-2017 Left Heart Cath Jd Kern MD Plan of Treatment Date Care Activity Detail Author Start: 10-14-2032 Colonoscopy COLONOSCOPY [facility] Start: 10-14-2032 COLORECTAL CANCER SCREENING COLORECTAL CANCER SCREENING [facility] Start: 03-01-2031 Urine microalbumin profile [facility] Start: 10-18-2029 Urine microalbumin profile DTA P,TDAP,TD (3 - Td or Tdap) [facility] Start: 11-02-2026 PROSTATE CANCER SCRE ENING DISCUSSION PROSTATE CANCER SCREENING DISCUSSION [facility] Start: 06-17-2024 Annual PCP Team Direct Sales Consultant cielo Disease Visit Annual PCP Team Chronic Disease Visit [facility] Start: 06-17-2024 BP Controlled (<130/80) BP Controlle d (<130/80) [facility] Start: 06-17-2024 Hepatitis B surface antibody level LDL Cholesterol [facility] Start: 02-18-2024 BP CONTROLLED (<130/80) BP CONTROLLE D (<130/80) [facility] Start: 12-17-2023 Hemoglobin A1c/Hemoglobin.total in Blood HbA1C [facility] Start: 11-29-2023 ANNUAL PCP TEAM HEEL STAINER CIELO DISEASE VISIT ANNUAL PCP TEAM CHRONIC DISEASE VISIT [facility] Start: 11-29-2023 Hepatitis B screening URINE AL BUMIN:CREATININE RATIO [facility] Start: 11-29-2023 Hepatitis B surface antibody level LDL CHOLESTEROL [facility] Start: 11-22-2023 BP CONTROLLED (<130/80) BP CONTROLLE D (<130/80) [facility] Start: 10-29-2023 BP CONTROLLED (<130/80) BP CONTROLLE D (<130/80) [facility] Start: 10-14-2023 Colonoscopy COLONOSCOPY [facility] Start: 10-05-2023 BP CONTROLLED (<130/80) BP CONTROLLE D (<130/80) [facility] Start: 10-04-2023 ANNUAL PCP TEAM HEEL STAINER CIELO DISEASE VISIT ANNUAL PCP TEAM CHRONIC DISEASE VISIT [facility] Start: 08-21-2023 ANNUAL PCP TEAM HEEL STAINER CIELO DISEASE VISIT ANNUAL PCP TEAM CHRONIC DISEASE VISIT [facility] Start: 08-21-2023 BP CONTROLLED (<130/80) BP CONTROLLE D (<130/80) [facility] Start: 08-21-2023 COVID-19 VACCINE (2 - Pfizer series) COVID-19 VACCINE (2 - Pfizer series) [facility] Immunizations Immunization Date Immunization Notes Care Provider Dulce adamson 05-15-2023 respiratory syncytia l virus (RSV) vaccine, bivalent (ABRYSVO) Nadir Grady MD Work Phone: [facility] 05-15-2023 Seasonal trivalent influenza vaccine, adjuvanted, preservative free Nadir Grady MD Work Phone: [facility] 05-13-2022 influenza, high-dose , quadrivalent vaccine (FLUZONE HIGH DOSE QUADRIVALENT) Martha Boston PA-C Work Phone: [facility] 05-13-2022 pneumococcal (PCV20) vaccine, 20 valent (PREVNAR 20) Martha Boston PA-C Work Phone: [facility] 05-13-2022 pneumococcal Conjuga te, unspecified formulation Martha Boston PA-C Work Phone: [facility] Work Phone: 03-01-2021 tetanus toxoid, redu radha diphtheria toxoid, and acellular pertussis vaccine, adsorbed Martha Boston PA-C Work Phone: [facility] 08-10-2020 zoster vaccine recombinant Nadir Grady MD Work Phone: [facility] 04-17-2020 influenza, high dose seasonal, preservative-free Nadir Grady MD Work Phone: [facility] 04-17-2020 zoster vaccine recombinant Nadir Grady MD Work Phone: [facility] 10-18-2019 pneumococcal conjuga te vaccine, 13 valent Nadir Grady MD Work Phone: [facility] 10-18-2019 tetanus toxoid, redu radha diphtheria toxoid, and acellular pertussis vaccine, adsorbed Nadir Grady MD Work Phone: [facility] 06-17-2019 influenza, high dose seasonal, preservative-free Nadir Grady MD Work Phone: [facility] 06-12-2018 influenza, high dose seasonal, preservative-free Nadir Grady MD Work Phone: [facility] 06-12-2018 pneumococcal conjuga te vaccine, 13 valent Nadir Grady MD Work Phone: [facility] 05-04-2017 influenza, injectabl e, quadrivalent, contains preservative Nadir Grady MD Work Phone: [facility] Work Phone: 02-06-2017 pneumococcal polysaccharide vaccine, 23 valent Nadir Grady MD Work Phone: [facility] 06-18-2016 influenza virus vacc ine, unspecified formulation Nadir Grady MD Work Phone: [facility] Work Phone: 07-10-2015 influenza virus vacc ine, unspecified formulation Nadir Grady MD Work Phone: [facility] Work Phone: 07-24-2011 tetanus toxoid, redu radha diphtheria toxoid, and acellular pertussis vaccine, adsorbed Nadir Grady MD Work Phone: [facility] Work Phone: 05-18-2011 influenza virus vacc ine, unspecified formulation Nadir Grady MD Work Phone: [facility] Work Phone: 07-10-2010 influenza virus vacc ine, unspecified formulation Nadir Grady MD Work Phone: [facility] Work Phone: 06-09-2009 influenza virus vacc ine, unspecified formulation Nadir Grady MD Work Phone: [facility] Work Phone: 06-07-2008 influenza virus vacc ine, unspecified formulation Nadir Grady MD Work Phone: [facility] 07-06-2007 influenza virus vacc ine, unspecified formulation Nadir Grady MD Work Phone: [facility] Work Phone: 07-05-2006 influenza virus vacc ine, unspecified formulation Nadir Grady MD Work Phone: [facility] Work Phone: Payers Date Payer Category Payer Medicare [id number] 2018 Medicare HUMANA MEDICARE HUMANA GOLD PLUS [id number] 2018-Present [phone] [address] [address] [place] [address] O [id number] 2018 Medicare HUMANA MEDICARE HUMANA GOLD PLUS [id number] 2018-Present [phone] [address] [address] [place] [address] O [id number] 1999 Unknown [facility] ELMA Ichiba COMP [id number] 1999-Present [phone] [place], [place] [id number] [place] [address] [id number] 1999 Unknown [facility] [email or web address] COMP [id number] 1999-Present [phone] [place] [address] [facility] [id number] Social History Date Type Detail Facility Start: 08-04-2015 End: 04-19-2022 Tobacco smoking status FLIS Never smoked tobacco [facility] Work Phone: End: 07-02-2014 History of tobacco use Chews Tobacco [facility] Work Phone: Start: 11-08-2021 End: 06-27-2022 Alcohol intake Current non-drinker of alcohol (finding) [facility] Start: 11-07-2020 End: 04-19-2022 History SDOH Alcohol Frequency 1 [facility] Start: 11-07-2020 End: 04-19-2022 History SDOH Alcohol Std Drinks 98 [facility] Start: 11-07-2020 End: 04-19-2022 History SDOH Social Connections Phone 5 [facility] Start: 11-07-2020 End: 04-19-2022 History SDOH Social Connections Get Together 2 [facility] Start: 11-07-2020 End: 04-19-2022 History SDOH Social Connections Living 4 [facility] Start: 11-07-2020 Education 11 [facility] Start: 08-04-2015 End: 04-19-2022 Tobacco Comment 1 can of chewing tobacco every 3 days PT QUIT 2014 [facility] Start: 1955 Sex Assigned At Not on file [facility] Start: 10-29-2021 End: 08-05-2022 Exposure to SARS-CoV-2 (event) Not sure [facility] History of tobacco use Cigarette Smoker [facility] Work Phone: Start: 08-04-2015 End: 04-19-2022 Tobacco use and exposure Former smokeless tobacco user [facility] Work Phone: Start: 04-19-2022 History SDOH Social Connections [employer] 3 [facility] Start: 04-06-2022 End: 04-19-2022 History of Social function [facility] Start: 04-06-2022 End: 04-19-2022 Social connection and isolation panel [facility] Do you belong to any clubs or organizations such as spiritism groups, unions, fraternal or athletic groups, or school groups? No [facility] How often do you att end meetings of the clubs or organizations you belong to? Patient refused [facility] Are you now , , , , never or living with a partner? [facility] How often to you hav e a drink containing alcohol? Never [facility] How hard is it for y ou to pay for the very basics like food, housing, medical care, and heating Not very hard [facility] Do you feel stress - tense, restless, nervous, or anxious, or unable to sleep at night because your mind is troubled all the time - these days [OSQ] Very much [facility] (I/We) worried whetyron er (my/our) food would run out before (I/we) got money to buy more. Sometimes true [facility] Medical Equipment Procedure Code Equipment Code Equipment Origin al Text Equipment Identifier Dates Start: 10-14-2016 End: 06-26-2022 Clinical Notes 10-03-2016 to 09-03-2023 Telephone Encounter - Alayna UrrutiaANA - 06/26/2023 3:14 PM EDTTelephone Encounter - Yolanda Brower - 06/26/2023 9:44 AM EDTTelephone Encounter - Jennifer Blue RN - 06/26/2023 2:59 PM EDT Note Date & Type Note Facility 09-03-2023 Note HNO ID: [id number] Author: Blanca Lee PA-C Service: ? Author Type: Physician First Officer And Flight Instructor Type: Progress Notes Filed: 09/03/2023 3:40 PM Note Text: This note was created using [employer]. Subjective Michael Bates is a 68 year [...] 10/16/2015 Chronic post-traumatic headache 08/04/[address] uDque Chronic sinusitis Claudication (HCC) 06/04/2017 PVR's normal. Coronary atherosclerosis due to lipid rich plaque 01/20/[address] Kern. s/p RODDY to Ramus and RODDY to LAD placed 01/20/2017. COVID-19 virus infection 06/18/202106/2021 DDD (degenerative disc disease), cervical 01/20/2012 DDD (degenerative disc disease), lumbar 06/30/2016 Multi level, worse L2-L3 Diabetes (HCC) Diabetic eye exam ([facility]) 03/19/2017 Last done: 10/01/2018 Elevated LFTs [...] tablet by mouth once daily. Managed by [facility] 30 tablet 11 omega-3 fatty acids 1,000 m (more content not included)... [facility] 09-02-2023 Note HNO ID: [id number] Author: Pat Feldman LPN Service: ? Author Type: LICENSED NURSE Type: Progress Notes Filed: 09/02/2023 4:50 PM Note Text: Scan on 09/02/2023 4:28 PM by Provider, External, PA-C: Consultation - Ophthalmology [facility] 06-26-2023 Miscellaneous Notes Contacted patient and let [...] tablet by mouth once daily. Managed by [facility] Date of last office visit in primary care: 06/17/2023 Date of next office visit in primary care: Visit date not found Last 2 Encounter Wt Readings: Date: Wt: 06/26/2023 84.5 kg (186 lb 3.2 oz) 06/17/2023 85.7 kg (189 lb) Previous labs/tests for medication: Not applicable Please advise. Thank you. Yolanda Brower. documented in this encounter [facility] 06-26-2023 Miscellaneous Notes Pt called and is [...] Augmentin, please advise documented in this encounter [facility] 06-26-2023 Note HNO ID: [id number] Author: Fer Merrill APRN.SHIPYARD HELPER Service: ? Author Type: Nurse Practitioner Type: [...] Date 2D ECHO (EXEP) 01/16/2017 EF=60%, 1+ RI and TI CATARACT EXTRACTION HX Left 10/2019 [...] 2 times d (more content not included)... [facility] 06-26-2023 History of Present illness Narrative Images [...] lumbar 06/30/2016 Multi level, worse L2-L3 Diabetes ([facility]) Diabetic eye exam ([facility]) 03/19/2017 Last done: 10/01/2018 Elevated LFTs [...] Date 2D ECHO (EXEP) 01/16/2017 EF=60%, 1+ RI and TI CATARACT EXTRACTION HX Left 10/2019 [...] tablet by mouth once daily. Managed by [facility] omega-3 fatty acids 1,000 mg [...] and atraumatic. Nose: Nose normal. Mouth/Throat: Lips: [place]. Mouth: Mucous membranes are moist. Pulmonary: Effort: [...] Fer Merrill APRN.MIGEL documented in this encounter [facility] 06-19-2023 Note HNO ID: [id number] Author: Odin Reyes MD Service: ? Author Type: Physician Type: Progress Notes Filed: 06/19/2023 12:37 PM Note Text: Express Care Triage Note: Patient presents to the [facility] with complaint of sinus pain and shortness of breath. He is a little worse than when seen and treated by Family Medicine 2 days ago. The patient was triaged and determined that he could be further evaluated in the Express Care, but he left before being roomed. [facility] 06-19-2023 History of Present illness Narrative Express Care Triage Note: Patient presents to the [facility] with complaint of sinus pain and shortness of breath. He is a little worse than when seen and treated by Family Medicine 2 days ago. The patient was triaged and determined that he could be further evaluated in the Express Care, but he left before being roomed. documented in this encounter [facility] 06-19-2023 Miscellaneous Notes Patient notified and verbalized understanding Meg Miller Cma Please let patient know his labs show improvement in his hgb a1c and the rest of his labs are stable. documented in this encounter [facility] 06-17-2023 Note HNO ID: [id number] Author: Gamal Mathis APRN.CNP Service: ? Author [...] Date 2D ECHO (EXEP) 01/16/2017 EF=60%, 1+ RI and TI CATARACT EXTRACTION HX Left 10/2019 [...] 1 tablet by mouth twice daily. Per [facility]: Dr. Kern nystatin (MYCOSTATIN) 100,000 unit/mL suspension Take 5 mL by mouth four times daily. 1tsp swish in mouth for several minutes, then swallow (or expectorate) 4 times daily until gone. triamcinolone acetonide (KENALOG) 0.1 % cream Apply 1 application to affected are (more content not included)... [facility] 05-16-2023 Note HNO ID: [id number] Author: Yamile Burns LPN Service: ? Author Type: ? Type: Progress Notes Filed: 05/18/2023 4:03 PM Note Text: Scan on 05/15/2023 9:35 AM by ProviderSonido PA-C: Consultation - Cardiology [facility] 05-16-2023 History of Present illness Narrative Scan on 05/15/2023 9:35 AM by ProviderSonido PA-C: Consultation - Cardiology documented in this encounter [facility] 04-04-2023 Miscellaneous Notes Patient notified.Daniella Whiteside LPN Please notify that testing showed no fungus at 3 days. Will call if becomes positive. documented in this encounter [facility] 04-03-2023 Miscellaneous Notes Pt was notified of the results. Pt verbalized understanding. Hodan Menard MA No fungal growth after 1 day will continue to grow culture and if anything comes back positive we will call patient. documented in this encounter [facility] 04-01-2023 Miscellaneous Notes Last office visit: 11/28/22 [...] advise. Tato Isidro documented in this encounter [facility] 04-01-2023 Note HNO ID: [id number] Author: Blanca Lee PA-C Service: ? Author Type: Physician First Officer And Flight Instructor Type: Progress Notes Filed: 04/01/2023 8:17 AM Note Text: This note was created using [employer]. Subjective Michael Bates is a 68 year [...] tongue. [facility] Not on any PANFILO inhibitors. He did start taking an jxac-kwd-dzjuspt zinc supplement 3 weeks ago. He had [...] Kern 30 t (more content not included)... [facility] 04-01-2023 History of Present illness Narrative This note was created using [employer]. Subjective Michael Bates is a 68 year [...] tongue. [facility] a [facility] Not on any PANFILO inhibitors. He did start taking an bxop-bkb-ahrkscs zinc supplement 3 weeks ago. He had [...] worse L2-L3 Diabetes (HCC) Diabetic eye exam ([facility]) 03/19/2017 Last done: 10/01/2018 Elevated LFTs [...] tablet by mouth once daily. Managed by [facility] 30 tablet 11 omega-3 fatty [...] Date 2D ECHO (EXEP) 01/16/2017 EF=60%, 1+ RI and TI CATARACT EXTRACTION HX Left 10/2019 [...] Blanca Lee PA-C documented in this encounter [facility] 03-10-2023 Note HNO ID: [id number] Author: Ute Shine APRN.SHIPYARD HELPER Service: ? Author Type: Nurse Practitioner Type: Progress Notes Filed: 03/10/2023 12:56 PM Note Text: Subjective The history is provided by the patient. No speech and language specialist was used. HPI Michael Bates is a [...] lumbar 06/30/2016 Multi level, worse L2-L3 Diabetes ([facility]) Diabetic eye exam ([facility]) 03/19/2017 Last done: 10/01/2018 Elevated LFTs [...] have confirmed and edited as necessary, the [facility] Review of Systems Constitutional: Negative for chills [...] warranting prompt ER evaluation. Ute Shine APRN.CNP [facility] 03-10-2023 Instructions Ute Shine APRN.CNP - 03/10/2023 12:56 PM EDT Start Triamcinolone 0.1% ointment twice daily for itch May use OTC benadryl or zyrtec as needed for itching Keep rash clean and dry. Allow to dry out. documented in this encounter [facility] 03-10-2023 History of Present illness Narrative Images from the original note were not included. Subjective The history is provided by the patient. No speech and language specialist was used. HPI Michael Bates is a [...] have confirmed and edited as necessary, the [facility] Review of Systems Constitutional: Negative for chills [...] detail warranting prompt ER evaluation. Ute Shine APRN.SHIPYARD HELPER documented in this encounter [facility] 02-24-2023 Miscellaneous Notes Pt notified of same, verbalizes understanding. Yamile Burns LPN Refill sent. Let patient know that his previous requests never were routed to us correctly. We apologize. Please let pt know when refilled. Last refill listed as historical med [facility] 11/28/22 NOV 06/04/23 Yamile Burns LPN documented in this encounter [facility] 02-17-2023 Note HNO ID: [id number] Author: Nadir Alves APRN.SHIPYARD HELPER Service: ? Author Type: Nurse Practitioner Type: [...] lumbar 06/30/2016 Multi level, worse L2-L3 Diabetes ([facility]) Diabetic eye exam ([facility]) 03/19/2017 Last done: 10/01/2018 Elevated LFTs [...] Date 2D ECHO (EXEP) 01/16/2017 EF=60%, 1+ RI and TI CATARACT EXTRACTION HX Left 10/2019 [...] before meal. Blood-Glucose (more content not included)... [facility] 02-04-2023 Miscellaneous Notes This is being handled in another telephone call. See other message regarding this. Closing this note. Lisa Rabago Patient came in to refill lorazepam. Unable to refill please review and advise patient regarding prescription. Patient came in wanting to refill Lorazepam $ documented in this encounter [facility] 01-17-2023 Note HNO ID: [id number] Author: Alayna Urrutia MA Service: ? Author Type: Lathmaker Type: Progress Notes Filed: 01/20/2023 12:18 PM Note Text: Scan on 01/16/2023 4:10 PM by External Provider, JARADC: CT Scan Scan on 01/16/2023 4:11 PM by External Provider, HOANG: CT Scan Scan on 01/16/2023 8:47 PM by External Provider, PA-C: Consultation - Emergency Medicine Alayna Urrutia MA [facility] 01-16-2023 Note HNO ID: [id number] Author: Miladys Butt APRN.SHIPYARD HELPER Service: ? Author Type: Nurse Practitioner Type: [...] elects to go to ER. Miladys Butt APRN.SHIPYARD HELPER [facility] 01-07-2023 Miscellaneous Notes Last refill Actos 11/29/22 Qty: 90 with 1 refill Last refill Iron 11/05/22 Qty: 60 with 1 refill Last refill Metformin 06/19/22 Qty: 360 with 1 refill [facility] 11/28/22 NOV 06/04/23 Yamile Burns LPN Patient has been identified by name and date of : Yes Last office visit in this department: Visit date not found RX INSTRUCTIONS: Patient aware RX will be sent to pharmacy. No need to notify patient. Patient phones requesting refills as follows: Requested Prescriptions No prescriptions requested or ordered in this encounter Please review and advise. JASE Jin documented in this encounter [facility] 11-29-2022 Miscellaneous Notes The following approved medication requests have been transmitted electronically. Requested Prescriptions Signed Prescriptions Disp Refills pioglitazone (ACTOS) 45 mg tablet 90 tablet 1 Sig: Take 1 tablet by mouth once daily. Authorizing Provider: MARTHA BOSTON PA-C TC to patient who verbalizes understanding of providers message. Patient agreeable to increasing Actos to 45mg. Prefers [facility] in [place]. Please advise. Thank you. CALLIE Rodriguez Let patient know that his a1c is 7.7%. I would like to see this under 7.5%. is he willing to increase actos to 45mg? His cholesterol was normal. PSA level is a little elevated. Recheck in 1 month. Blood counts are stable. documented in this encounter [facility] 11-28-2022 Note HNO ID: [id number] Author: Martha Boston PA-C Service: ? Author Type: Physician First Officer And Flight Instructor Type: Progress Notes Filed: 11/28/2022 2:29 PM [...] 08/04/[address] Duque Chronic sinusitis Claudication ([facility]) 06/04/2017 PVR's normal. Coronary atherosclerosis due to lipid rich plaque 01/20/[address] Kern. s/p RODDY to Ramus and RODDY to LAD placed 01/20/2017. COVID-19 virus infection 06/18/202106/2021 DDD (degenerative disc disease), cervical 01/20/2012 DDD (degenerative disc disease), lumbar 06/30/2016 Multi level, worse L2-L3 Diabetes ([facility]) Diabetic eye exam ([facility]) 03/19/2017 Last done: 10/01/2018 Elevated LFTs [...] Date 2D ECHO (EXEP) 01/16/2017 EF=60%, 1+ RI and TI CATARACT EXTRACTION HX Left 10/2019 CC CORONARY STENT 05/10/2020 RDODY to pLCx CC CORONARY STENT 12/2016 Ramus [...] than 30 secon (more content not included)... [facility] 11-28-2022 History of Present illness Narrative Medicare [...] Date 2D ECHO (EXEP) 01/16/2017 EF=60%, 1+ RI and TI CATARACT EXTRACTION HX Left 10/2019 [...] Date 2D ECHO (EXEP) 01/16/2017 EF=60%, 1+ RI and TI CATARACT EXTRACTION HX Left 10/2019 [...] tablet by mouth once daily. Managed by [facility] omega-3 fatty acids 1,000 mg [...] which included preparing to see the patient, [id number]-iz-[id number] patient care, completing clinical documentation, obtaining and/or reviewing separately obtained history, performing a medically appropriate examination, counseling and educating the patient/family/caregiver, ordering medications, tests, or procedures, communicating with other HCPs (not separately reported), and communicating results to the patient/family/caregiver. documented in this encounter [facility] 11-21-2022 Note HNO ID: [id number] Author: Jenna Jim APRN.MIGEL Service: ? Author Type: Nurse Practitioner Type: Progress Notes Filed: 11/21/2022 10:34 AM Note Text: [facility] [place] Follow-up Visit Follow-up note November 21, 2022 [...] chronic 10/16/2015 Neuropath (more content not included)... [facility] 11-21-2022 Instructions Jenna Jim APRN.MIGEL - 11/21/2022 [...] time) of gabapentin. documented in this encounter [facility] 11-21-2022 History of Present illness Narrative Images from the original note were not included. [facility] [place] Follow-up Visit Follow-up note November 21, 2022 [...] Date 2D ECHO (EXEP) 01/16/2017 EF=60%, 1+ RI and TI CATARACT EXTRACTION HX Left 10/2019 [...] tablet by mouth once daily. Managed by [facility] omega-3 fatty acids 1,000 mg [...] DATE OF EXAM: Apr 05 2022 2:00PM [facility] 0504 - CT BRAIN WO IVCON / [...] base and imaged soft tissues are unremarkable. Chair Maker (topogram) images: No acute findings Impression: IMPRESSION: No significant change. No acute intracranial process Bag Adjuster: PSCB Transcribe Date/Time: Apr 05 2022 2:06P [...] which included preparing to see the patient, [id number] patient care, completing clinical documentation, obtaining and/or reviewing separately obtained history, performing a medically appropriate examination, counseling and educating the patient/family/caregiver, and ordering medications, tests, or procedures. documented in this encounter [facility] 11-14-[address] consult for [facility] BRAIN [facility].. In provider review of patient appointment, patient needs to be re-scheduled with the [facility]. Pt has been seen by three general neurologists and due to the overall concerns, provider believes [facility] will be more beneficial to patient. TC to patient who is advised of the above and is agreeable to see brain [facility]. Please contact patient and assist with scheduling with [facility]. Thank you. CALLIE Rodriguez documented in this encounter [facility] 11-12-2022 Note HNO ID: [id number] Author: Fer Merrill APRN.SHIPYARD HELPER Service: ? Author Type: Nurse Practitioner Type: [...] worse L2-L3 Diabetes (HCC) Diabetic eye exam ([facility]) 03/19/2017 Last done: 10/01/2018 Elevated LFTs [...] Date 2D ECHO (EXEP) 01/16/2017 EF=60%, 1+ RI and TI CATARACT EXTRACTION HX Left 10/2019 [...] once daily. M (more content not included)... [facility] 11-12-2022 History of Present illness Narrative Subjective [...] Date 2D ECHO (EXEP) 01/16/2017 EF=60%, 1+ RI and TI CATARACT EXTRACTION HX Left 10/2019 [...] dysplasia, repeat in 2 years EGD W/O [facility] SPEC VARICIES INJ 10/14/2022 FECAL [...] tablet by mouth once daily. Managed by [facility] omega-3 fatty acids 1,000 mg [...] TABLETS IN A DOSE PACK Fer Merrill APRN.SHIPYARD HELPER documented in this encounter [facility] 11-05-2022 Miscellaneous Notes Last Office Visit: 10/24/2022 Future Office Visit: 11/19/2022 Requested Prescriptions Pending Prescriptions Disp Refills ferrous sulfate 325 mg (65 mg iron) tablet 60 tablet 1 Sig: Take 1 tablet by mouth twice daily with meals. Date of Last Labs: 08/21/2022 documented in this encounter [facility] 10-29-2022 Note HNO ID: [id number] Author: Jennifer Cho PA-C Service: ? Author Type: Physician First Officer And Flight Instructor Type: Progress Notes Filed: 11/05/2022 2:55 PM Note Text: FOLLOW UP VISIT - ENDOSCOPY NAME: Michael Bates [place] [facility]PITAL NO.: [id number] DATE OF SERVICE: 10/29/2022 : 1955 REFERRING [...] in one cassette. Gross examination performed at [facility], [facility] [place] [address] J 10/14/2022 8:25 PM Performing Lab Diagnostic interpretation performed at [facility], [facility] Critical access hospital [address] CLIA# [id number] Vitamin Manager: Olayinka Paz M.D. Addendum Addendum is issued [...] which included preparing to see the patient, [id number] patient care, completing clinical documentation, obtaining and/or reviewing separately obtained history, counseling and educating the patient/family/caregiver, independently interpreting results (not separately reported), and communicating results to the patient/family/caregiver. Jennifer Cho PA-C [facility] 10-29-2022 Instructions Jennifer Cho PA-C - 10/29/2022 4:38 PM EST -Continue PPI long-term -Repeat EGD in 2 years for surveillance The following instructions are important for you related to your office visit today with the [facility] General Surgeons. INSTRUCTIONS FOLLOWING A NORMAL [...] you should contact our office immediately @ [phone] and ask to be transferred to the General Surgery department. documented in this encounter [facility] 10-29-2022 History of Present illness Narrative FOLLOW UP VISIT - ENDOSCOPY [facility]: [facility] NO.: [id number] DATE OF SERVICE: 10/29/2022 : 1955 REFERRING [...] in one cassette. Gross examination performed at [facility], [address] [place] [id number] JT 10/14/2022 8:25 PM Performing Lab Diagnostic interpretation performed at [facility], [address] [facility] [address] CLIA# [id number] Vitamin Manager: Olayinka Paz M.D. Addendum Addendum is issued [...] which included preparing to see the patient, xahz-df-dfiz patient care, completing clinical documentation, obtaining and/or reviewing separately obtained history, counseling and educating the patient/family/caregiver, independently interpreting results (not separately reported), and communicating results to the patient/family/caregiver. Jennifer Cho PA-C documented in this encounter [facility] 10-23-2022 Note HNO ID: [id number] Author: Alayna Urrutia MA Service: ? Author Type: Lathmaker Type: Progress Notes Filed: 10/24/2022 8:47 AM Note Text: Scan on 10/23/2022 10:26 AM by External Provider: Consultation - Cardiology Please review. Alayna Urrutia MA [facility] 10-23-2022 History of Present illness Narrative Scan on 10/23/2022 10:26 AM by External Provider: Consultation - Cardiology Please review. Alayna Urrutia MA documented in this encounter [facility] 10-14-2022 History and physical note Images from [...] lumbar 06/30/2016 Multi level, worse L2-L3 Diabetes ([facility]) Diabetic eye exam ([facility]) 03/19/2017 Last done: 10/01/2018 Elevated LFTs [...] Date 2D ECHO (EXEP) 01/16/2017 EF=60%, 1+ RI and TI CATARACT EXTRACTION HX Left 10/2019 [...] entered by the nurse and reviewed by mt Nursing Notes: Shiela Thacker LPN 06/27/2022 9:31 [...] Thai Santiago MD documented in this encounter [facility] 10-05-2022 Note HNO ID: [id number] Author: Nadir Grady MD Service: ? Author [...] per cardio his FBS have ranged 130's-160. [place] hrs post meals have been in the [...] Date 2D ECHO (EXEP) 01/16/2017 EF=60%, 1+ RI and TI CATARACT EXTRACTION HX Left 10/2019 [...] mg iron) tab (more content not included)... [facility] 10-05-2022 History of Present illness Narrative Chief [...] per cardio his FBS have ranged 130's-160. 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 Managed by [facility] omega-3 fatty acids 1,000 mg [...] Nadir Grady MD documented in this encounter [facility] 10-02-2022 Miscellaneous Notes The following approved medication requests have been transmitted electronically. Requested Prescriptions Signed Prescriptions Disp Refills pioglitazone (ACTOS) 30 mg tablet 90 tablet 1 Sig: Take 1 tablet by mouth once daily. Authorizing Provider: NADIR GRADY MD Jaspal- [facility] reports she informed patient and sister, patient [...] to DDM. Pended. documented in this encounter [facility] 09-24-2022 Miscellaneous Notes Jaspal Matilde-[facility] called and is notified of providers [...] appt in a month. Jaspal Clayton with [facility] calls to report they take care of setting up pt's meds. Today pt reported to Jaspal that Actos was stopped. Jaspal is asking pcp if medication has been discontinued and if there is documentation concerning this could it please be faxed to: [phone]. Can call Jaspal @ [phone]. Actos is currently on pt's med chart. Aaliyah Horner LPN documented in this encounter [facility] 09-23-2022 Note HNO ID: [id number] Author: Miladys Butt APRN.SHIPYARD HELPER Service: ? Author Type: Nurse Practitioner Type: [...] lumbar 06/30/2016 Multi level, worse L2-L3 Diabetes ([facility]) Diabetic eye exam ([facility]) 03/19/2017 Last done: 10/01/2018 Elevated LFTs [...] Date 2D ECHO (EXEP) 01/16/2017 EF=60%, 1+ RI and TI CATARACT EXTRACTION HX Left 10/2019 [...] mouth once daily. (more content not included)... [facility] 09-23-2022 Note HNO ID: [id number] Author: Sasha Altamirano, RT(R) Service: Nuclear Medicine Author Type: Technologist Type: Progress Notes Filed: 09/23/2022 1:41 PM Note Text: Radiology Service Progress Note PATIENT NAME: Michael JARVISN: [id number] DATE OF SERVICE: September 23, 2022 TIME: [...] RT Angie(R) September 23, 2022 1:33 PM [facility] 09-23-2022 Instructions Jenna Jim APRN.CNP - 09/23/2022 [...] and better stamina. documented in this encounter [facility] 09-23-2022 Claudia Butt APRN.CNP - 09/23/2022 2:26 PM EST ASSESSMENT/PLAN: 1. Foot injury, left, initial encounter - ICD9: 959.7, ICD10: S99.922A - XR FOOT GENERAL 3V AP/LAT/OBL LEFT Radiologist IMPRESSION: No radiographic evidence of acute osseous injury. Bag Adjuster: FAWN Transcribe Date/Time: Sep 23 2022 1:46P Dictated by : PHYLLIS TORRES MD - Follow-up with your PCP in 3-5 days if symptoms have not improved or sooner if symptoms worsen - Discussed red flags and need for immediate medical evaluation if any occur. - Discussed supportive care treatment with fluids, rest and analgesia. 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 Managed by [facility] omega-3 fatty acids 1,000 mg [...] No radiographic evidence of acute osseous injury. Bag Adjuster: FAWN Transcribe Date/Time: Sep 23 2022 1:46P [...] Miladys Butt APRN.CNP documented in this encounter [facility] 09-19-2022 Note HNO ID: [id number] Author: Jenna Jim APRN.CNP Service: ? 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 Previously noted to have low blood [...] today at [facility]. Per [facility] Dr. العلي at appointment earlier [...] not been sadie (more content not included)... [facility] 09-19-2022 History of Present illness Narrative Images from the original note were not included. 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 Previously noted to have low blood [...] today at [facility]. Per [facility] Dr. العلي at appointment earlier [...] [place] Medications can also be [...] muscles. States he did pass out in spiritism four weeks ago. Tremors intermittently in hands. [...] lumbar 06/30/2016 Multi level, worse L2-L3 Diabetes ([facility]) Diabetic eye exam ([facility]) 03/19/2017 Last done: 10/01/2018 Elevated LFTs [...] Date 2D ECHO (EXEP) 01/16/2017 EF=60%, 1+ RI and TI CATARACT EXTRACTION HX Left 10/2019 [...] tablet by mouth once daily. Managed by [facility] omega-3 fatty acids 1,000 mg [...] DATE OF EXAM: Apr 05 2022 2:00PM [facility] 0504 - CT BRAIN WO IVCON / [...] base and imaged soft tissues are unremarkable. Chair Maker (topogram) images: No acute findings Impression: IMPRESSION: No significant change. No acute intracranial process Bag Adjuster: FAWN Transcribe Date/Time: Apr 05 2022 2:06P [...] which included preparing to see the patient, [id number]-[id number] patient care, completing clinical documentation, obtaining and/or reviewing separately obtained history, performing a medically appropriate examination, counseling and educating the patient/family/caregiver, ordering medications, tests, or procedures, and communicating with other HCPs (not separately reported). documented in this encounter [facility] 09-05-2022 Miscellaneous Notes Pt called and is notified of providers message and instructions. Pt voices understanding. 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 August 28 Jaspal SAHNI from [facility] calls to report that patient had taken [...] is not why? With [facility] this should of been less than $8. [...] Selma Echevarria LPN documented in this encounter [facility] 12-30-2022 Miscellaneous Notes Patient has been identified [...] advise. Liza Hood documented in this encounter [facility] 08-28-2022 Miscellaneous Notes Noted. Jaspal SAHNI from [facility] calls to report that patient had taken pseudoephedrine and patient became dizzy, couldn't stand, and couldn't stay awake. Patient has not taken this medication anymore. Patient also requested office visit notes to be faxed to [phone]. Faxed as requested. Beverly Rawls RN documented in this encounter [facility] 08-22-2022 Miscellaneous Notes Noted. Spoke with Michael and gave Dr. Grady recommendations. He said he would think about it and let us know. I patient I would send the name of the medication via [employer]. Alayna Urrutia MA Let Michael know I did some looking into alternate treatments for esophageal spasms. There is a med called hyoscyamine that he would take three times a day and it will not affect BP. If interested I will send in script to [facility]. documented in this encounter [facility] 08-22-2022 Miscellaneous Notes TC to patient, POA answered and took detailed message for patient. Verbalized understanding with no questions at this time. CALLIE Rodriguez Let patient know iron levels are better and hemoglobin is almost back to normal. Cont the iron medication. documented in this encounter [facility] 08-21-2022 Instructions Nadir Grady MD - 08/21/2022 [...] be below 180. documented in this encounter [facility] 08-21-2022 History of Present illness Narrative Chief [...] will be seeing Neurology in September in [place] for pal also. Patient's BS's have been [...] Date 2D ECHO (EXEP) 01/16/2017 EF=60%, 1+ RI and TI CATARACT EXTRACTION HX Left 10/2019 [...] tablet by mouth once daily. Managed by [facility] omega-3 fatty acids 1,000 mg [...] which included preparing to see the patient, swrb-qz-exlg patient care, completing clinical documentation, performing a medically appropriate examination, counseling and educating the patient/family/caregiver and ordering medications, tests, or procedures. Nadir Grady MD documented in this encounter [facility] 08-07-2022 Miscellaneous Notes The following approved medication [...] patient. Veena Currie documented in this encounter [facility] 08-05-2022 Nurse Note AMBULATORY CYSTOSCOPY PROCEDURE PREOPERATIVE/PROCEDURAL [...] Keith Rawls Ma documented in this encounter [facility] 08-05-2022 History of Present illness Narrative [facility] [place] CYSTOSCOPY PROCEDURE NOTE: Michael Bates is a 67 year old male who presents with BPH for cystoscopy. Pt ID verified with patient: Yes Procedure verified with patient: Yes Procedure confirmed with physician and cad application support specialist: Yes UNIVERSAL PROTOCOL / SAFETY CHECKLIST Procedure [...] Mike Lucero MD documented in this encounter [facility] 07-30-2022 History of Present illness Narrative Chief [...] worse L2-L3 Diabetes (HCC) Diabetic eye exam ([facility]) 03/19/2017 Last done: 10/01/2018 Elevated LFTs [...] Date 2D ECHO (EXEP) 01/16/2017 EF=60%, 1+ RI and TI CATARACT EXTRACTION HX Left 10/2019 [...] tablet by mouth once daily. Managed by [facility] omega-3 fatty acids 1,000 mg [...] Gamal Mathis APRN.MIGEL documented in this encounter [facility] 07-29-2022 Miscellaneous Notes Patient rescheduled. Alayna Urrutia MA Pt's POA Frida called in for an appt. Frida had hung up phone while appt was being scheduled with Gamal Mathis CNP for 07/30 @ 9:00 am. Appt was taken by another heeler. Message left on Frida's vm to call back to reschedule appt. Aaliyah Horner LPN documented in this encounter [facility] 07-12-2022 Miscellaneous Notes Called patient's POA and she confirmed the appointment on 08/05 documented in this encounter [facility] 07-11-2022 Miscellaneous Notes Patient notified and voiced understanding. Alayna Urrutia MA Let patient know that his renal function is normal. Okay to restart metformin. Also his iron levels and blood counts are improving. Continue the iron supplement. Martha Boston PA-C documented in this encounter [facility] 07-10-2022 Miscellaneous Notes Noted. agree Martha, please see below FYI. Yamile Burns LPN Spoke with Branden Vick's nurse about scheduling the patient for a consultation. She reported the patient will need to speak with an MD in urology for the procedure that he is being referred for. I relayed the information to the patient's POA. I attempted to contact [facility] but had to leave a VM of the patient's information and request for appointment. The patient's POA understood that a VM had been left and that [facility] scheduling will reach out. She was provided the phone number to [facility]. documented in this encounter [facility] 07-10-2022 Miscellaneous Notes Patient notified of results and provider's instructions. Patient verbalizes understanding. Also called EC Frida per pt's request to review results and instructions. Pt had wanted her to schedule Urology appointment for him. Reviewed results and instructions with Frida, she verbalizes understanding. She was transferred to schedule Urology appointment. Copy of CT scan faxed with FYI to [facility]. Yamile Burns LPN Let patient know that CT abd scan shows mild bladder wall thickening which is of uncertain nature and I would like him to see urology for this. CT shows coronary artery calcifications. Will just forward result to his cardiology ([facility]) as a FYI only. Given that he recently had a heart cath, not much more that they will likely recommend. Martha Boston, PA-C documented in this encounter [facility] 07-09-2022 History of Present illness Narrative Radiology [...] TIME: 12:12 PM documented in this encounter [facility] 07-05-2022 Miscellaneous Notes Spoke with pt and reviewed Martha's message. Pt verbalizes understanding. Yamile Burns LPN Let patient know that this was prescribed for short term use only. I did not have plans to keep him on this daily or intermediate. This was discussed with him. I will [...] Last refill: 05/2022 documented in this encounter [facility] 07-02-2022 Miscellaneous Notes Called pt and reviewed [...] Martha Boston PA-C documented in this encounter [facility] 07-02-2022 History of Present illness Narrative HISTORY [...] worse L2-L3 Diabetes (HCC) Diabetic eye exam ([facility]) 03/19/2017 Last done: 10/01/2018 Elevated LFTs [...] Date 2D ECHO (EXEP) 01/16/2017 EF=60%, 1+ RI and TI CATARACT EXTRACTION HX Left 10/2019 [...] entered by the nurse and reviewed by mt Nursing Notes: Shiela Thacker LPN 06/27/2022 9:31 [...] Thai Santiago MD documented in this encounter [facility] 07-01-2022 History of Present illness Narrative Radiology [...] 2022 9:02 AM documented in this encounter [facility] 06-27-2022 Miscellaneous Notes Spoke with pt and advised of Martha's message and instructions. Pt verbalizes understanding. Pt also aware this nurse had given this message to Frida as well. Yamile Burns LPN Advised pt's ggfbts-[id number]-shy Frida of Martha's message and instructions. She [...] Martha Boston PA-C documented in this encounter [facility] 06-27-2022 Instructions Thai Santiago MD - 06/27/2022 [...] If you do not have a responsible trencher driver (family member or friend) with you [...] midnight. 2 08/2019 documented in this encounter [facility] 06-27-2022 Nurse Note REVIEW OF SYSTEMS: General: [...] Shiela Thacker LPN documented in this encounter [facility] 06-26-2022 Miscellaneous Notes Pt called and is [...] glucometer, lancets & test strips to [facility], pending. Beulah Wright LPN Looking at med list it seems like he has not had a new glucose meter in 5 years. See if he is ok with us sending in scripts for new meter, lancets and test strips? Noted. When is next time [facility] coming out to check? Martha Boston PA-C The following approved medication requests have been transmitted electronically. Requested Prescriptions Signed Prescriptions Disp Refills glimepiride (AMARYL) 2 mg tablet 30 tablet 5 Sig: Take 1 tablet by mouth daily with breakfast. Authorizing Provider: MARTHA BOSTON PA-C Jennifer at [facility] was called and given providers information. She requested last OV notes be faxed over for Dr Kern to see. She states they will call back once he has looked at them and made any decisions. Faxed last OV note to [phone]. Pt called and is notified of providers [...] in and get labs done. Will call [facility]. Jennifer Blue RN Let patient know [...] these readings down? Also can you contact [facility] and let them know we saw patient yesterday and his BP was 80/50. We are working up anemia and adjusting diabetic management, but didn't know if they wanted to address the low blood pressure and make medication change. Martha Boston PA-C documented in this encounter [facility] 06-25-2022 Miscellaneous Notes Jaspal with [facility] called for office visit from today 06-25-22 apt with CAMELIA Candelario. Identified pt with name and date of . Faxed copy to [phone]. Done. Semla Echevarria LPN documented in this encounter [facility] 06-25-2022 Instructions Martha Boston PA-C - 06/25/2022 8:10 AM EDT Make an appointment with cardiology to discuss your blood pressures. documented in this encounter [facility] 06-25-2022 History of Present illness Narrative Chief [...] Date 2D ECHO (EXEP) 01/16/2017 EF=60%, 1+ RI and TI CATARACT EXTRACTION HX Left 10/2019 [...] tablet by mouth once daily. Managed by [facility] omega-3 fatty acids 1,000 mg [...] Martha Boston PA-C documented in this encounter [facility] 06-20-2022 Miscellaneous Notes Jaspal Odonnell LPN returned [...] his plavix and lipitor come from the [facility] and will need to contact them is he needs scripts sent to [facility]. Requested Prescriptions Signed Prescriptions Disp Refills pioglitazone [...] is now getting his prescriptions through [facility]. Asking for prescriptions to be sent there. Patient's blood sugar is 245 today. Please review and advise, Beverly Rawls RN Let jaspal know I want to increase his actos to 30 mg a day. Is he still getting meds packaged from [facility] or did he change pharmacies. Jaspal [facility]OTT[facility] PR[facility] reports they have the [facility] and they were called in a blood sugar on the Pt of 447. She states the Pt reports he has only had a milk so far this morning. Pt takes Actos daily and Metformin twice a day. Pt is asymptomatic. Jaspal SAHNI told Pt to start drinking lots of water. Please call and advise. 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 Headaches worsening and requesting advisement. Thank you, Michelle Oakes documented in this encounter [facility] 05-29-2022 Miscellaneous Notes Received fax from [facility] requesting pt's last A1c as pt is in there program. Last A1c faxed to [phone] as requested. Yamile Burns LPN documented in this encounter [facility] 05-28-2022 History of Present illness Narrative Called [...] Referred to ED documented in this encounter [facility] 05-28-2022 Miscellaneous Notes Noted. Call placed to [...] would have to be responsible to notify [facility] of no longer needing services and would need to let provider's office know when he is in need of prescriptions through [facility]. Jaspal verbalizes understanding and plans to contact [...] Also we just got a call from [facility] asking us to send the Actos script to them yesterday ??? Not sure how they know it went to [facility] (which is what the patient wanted) but since the person who responded to the message was not aware [facility]. So if he is not going to use [facility] then he needs to let them know and then update use when he wants meds sent to [facility]. However I think this is a bad idea since he can not read. Jaspal Clayton with [facility] calls to update provider on patient. Jaspal reports that patient has stopped taking sertraline and amantadine d/t possible side effect of dizziness. She reports that he is removing the pills from his pill packs supplied by [facility] but patient isn't able to read so she is not certain how he is actually identifying the correct pills to remove. Patient reported to Jaspal that he is no longer going to receive medication pill packs from [facility] and wants [facility] nurse to fill weekly for patient. Recent [...] [place]. Jaspal requesting a call back at [phone] if provider wants any changes or any response to the above. Please review and advise, Nury Jo RN documented in this encounter [facility] 05-24-2022 Miscellaneous Notes Patient notified. Alayna Urrutia MA Let patient know Actos sent to [facility] for 90 days. The following approved medication requests have been transmitted electronically. Requested Prescriptions Signed Prescriptions Disp Refills pioglitazone (ACTOS) 15 mg tablet 90 tablet 1 Sig: Take 1 tablet by mouth once daily. Authorizing Provider: NADIR GRADY MD Patient called, he would like prescription sent to [facility] [place] today. Did contact Rfida and she indicated that she did speak with Michael and she is ok with medication being sent to [facility] but would need some system for Michael. Was talking to Frida about sending the medication for Actos now to [facility] and our phone . Alayna Urrutia MA Spoke with Jaspal and gave her PCP instructions. Also spoke with patient and he would like for this medication to go to [facility]. In fact he would like all of this medication to go to [facility]. I will contact Jaspal to let her know. Alayna Urrutia MA Let Jaspal with [facility] know his Januvia is most likely the most expensive. Looking at his med sheet from [place] the next two most costly are his [...] for review. Alayna Urrutia MA Jaspal with [facility] had called in and reported that [...] will contact them. Pt was seen in [facility] 05-14-22 and dx with ANA. Pt not able to do virtual apts. Please review and instruct Frida. Willing to bring in for an apt. Let Frida know. Pt's pharmacy is [facility] and gets pre packed sheets. Selma Echevarria LPN documented in this encounter [facility] 05-15-2022 Miscellaneous Notes The following approved medication [...] of labs wnl. documented in this encounter [facility] 05-13-2022 Instructions Martha Boston PA-C - 05/13/2022 8:09 AM EDT Please complete labs today. We have increased zoloft to 50mg. Follow up in 6 weeks for recheck on the increase of zoloft. Follow up in 6 months medicare wellness exam. Make sure to schedule your eye exam documented in this encounter [facility] 05-13-2022 History of Present illness Narrative Chief [...] lumbar 06/30/2016 Multi level, worse L2-L3 Diabetes ([facility]) Diabetic eye exam ([facility]) 03/19/2017 Last done: 10/01/2018 Elevated LFTs [...] Date 2D ECHO (EXEP) 01/16/2017 EF=60%, 1+ RI and TI CATARACT EXTRACTION HX Left 10/2019 [...] Martha Boston PA-C documented in this encounter [facility] 05-03-2022 Miscellaneous Notes Patient has been identified [...] Abdirahman Duong RN documented in this encounter [facility] 05-02-2022 Miscellaneous Notes Noted. Jaspal Odonnell LPN from [facility] called and is notified of providers message. [...] neurologist or the Ranexa or Midodrine per [facility] Jaspal Odonnell LPN from [facility] calling patient is complaining of his mouth burning if he eats any pickles or ketchup. He eats a lot of potato chips for the salt, that does not bother him. Patient has no open sores in his mouth at all. Asking if any of his medications may be causing this? Please advise documented in this encounter [facility] 04-30-2022 Miscellaneous Notes Jaspal advised of Dr [...] and I will address. Jaspal SAHNI from [facility] calling to check status of note. Office notes from 04/25 visit with Neuro says to discuss with Dr Grady to discontinue Amitriptyline. Jaspal has appt with patient at 10 am today, she is asking for weaning instructions please. Please advise Will forward note regarding tapering of amitriptyline to Neuro. Med list updated. Jaspal SAHNI from [facility] calls to report that patient had seen [...] Beverly Rawls RN documented in this encounter [facility] 04-27-2022 Miscellaneous Notes Please see pt's update. Yamile Burns LPN documented in this encounter [facility] 04-25-2022 Instructions Rin Gagnon APRN.SHIPYARD HELPER - 04/25/2022 2:35 PM EDT Ortostatic Hypotension. [...] or stationery bicycling. documented in this encounter [facility] 04-25-2022 History of Present illness Narrative Images from the original note were not included. [facility] New Patient Evaluation [...] Date Autonomic Reflex Tilt QSART Skin Biopsy Manager Office Echo EEG Labs: SPEP- normal, HGBA1C 7.1, [...] tablet by mouth once daily. Managed by [facility] omega-3 fatty acids 1,000 mg [...] lumbar 06/30/2016 Multi level, worse L2-L3 Diabetes ([facility]) Diabetic eye exam ([facility]) 03/19/2017 Last done: 10/01/2018 Elevated LFTs [...] Date 2D ECHO (EXEP) 01/16/2017 EF=60%, 1+ RI and TI CATARACT EXTRACTION HX Left 10/2019 [...] Extension 01/03 53 Movement/Coordination Finger-to- nose-finger and rire-if-krmg intact bilaterally. No evidence of ataxia arms. [...] would be difficulty to go [place]. Medications can also be [...] which included preparing to see the patient, [id number] patient care, completing clinical documentation, obtaining and/or [...] Eluting Coronary Stent Placement Diabetic Eye Exam (Former[facility]) Leg Pain, Bilateral Medicare Annual Wellness Visit, Subsequent Gerd Without Esophagitis Neuropathy Primary Insomnia Abnormal Dreams Medication Management Illiteracy Anemia of Chronic Disease History of Covid-19 No orders found for this visit on 04/25/22. Rin Gagnon APRN.MIGEL General Neurology [address] [place] [address]. [id number] Appointment: [phone] 1. This office note has been dictated [...] your PCP/referring physician documented in this encounter [facility] 04-19-2022 History of Present illness Narrative Chief [...] and that's how he was taken to [facility] ER. He himself recently had heart surgery [...] worse L2-L3 Diabetes ([facility]) Diabetic eye exam ([facility]) 03/19/2017 Last done: 10/01/2018 Elevated LFTs [...] Date 2D ECHO (EXEP) 01/16/2017 EF=60%, 1+ RI and TI CATARACT EXTRACTION HX Left 10/2019 [...] tablet by mouth once daily. Managed by [facility] omega-3 fatty acids 1,000 mg [...] Martha Boston PA-C documented in this encounter [facility] 04-09-2022 Miscellaneous Notes Frida was notified and will have patient call to schedule ER follow up Rosa Valentino Ma Please advise Frida that we do not have up to date papers listing her as power of employee benefits attorney for health care. Also this title does not come into affect unless the patient can not speak for himself. I appreciate the info and would advise that Michael make an appt to be seen for ER follow up for tremors/anxiety. Patient POA calling office regarding patient episode of tremor that led to ER visit at [facility] over the weekend. Patient having increased stress [...] you. CALLIE Rodriguez documented in this encounter [facility] 04-03-2022 Miscellaneous Notes The following approved medication [...] Selma Echevarria LPN documented in this encounter [facility] 03-25-2022 Miscellaneous Notes The following approved medication [...] Barbara Johnson Pss documented in this encounter [facility] 03-20-2022 Miscellaneous Notes Called the patient and relayed the provider's message of CT results. The patient understood the information provided. ----- Message from Jenna Jim APRN.SHIPYARD HELPER sent at 03/19/2022 5:21 PM EDT ----- CT of brain is normal and does not show any evidence of bleed. documented in this encounter [facility] 03-19-2022 History of Present illness Narrative Radiology [...] 2022 3:05 PM documented in this encounter [facility] 03-19-2022 Miscellaneous Notes Addended by: JENNA JIM [...] you. CALLIE Rodriguez documented in this encounter [facility] 02-26-2022 Miscellaneous Notes Patient has been identified [...] Zaira Singh Pss documented in this encounter [facility] 02-22-2022 Miscellaneous Notes Spoke with patient's RANJEET Mariee. Discussed consult to autonomic clinic to address orthostatic hypotension prior to initiation of other medications. She is agreeable and states she would be able to drive patient to [place] (she lives in [place]). Consult placed. Will reach out to scheduling [...] may be able to drive him to [place] if that is closest location. Pt asking this provider to call his RANJEET to discuss this with her. Call placed to Frida; pt's RANJEET. No answer and voicemail left. Will attempt to contact again tomorrow. Cardiac testing done at [facility] has been scanned. 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 Previously noted to have low blood [...] to follow with pain management as well. Frida/Kwsauz-uz-nng/POA is calling, has not heard back from the office on the next step would be. Please advise. Symone العلي LPN documented in this encounter [facility] 02-07-2022 History of Present illness Narrative Images from the original note were not included. [facility] [place] New Patient visit New Patient Consultation February [...] Per Dr. Grady 10/25/21: Patient went to [facility] on 10/16/2021 after having 2 syncopal episodes [...] dizzy before each episode. Patient went to [place] ER 10/16/2021 and BP then was 117/75, [...] Date 2D ECHO (EXEP) 01/16/2017 EF=60%, 1+ RI and TI CATARACT EXTRACTION HX Left 10/2019 [...] tablet by mouth once daily. 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 Previously noted to have low blood [...] which included preparing to see the patient, [id number] patient care, completing clinical documentation, obtaining and/or reviewing separately obtained history, performing a medically appropriate examination and counseling and educating the patient/family/caregiver. documented in this encounter [facility] 01-30-2022 Miscellaneous Notes The following approved medication [...] Madhuri Chapa LPN documented in this encounter [facility] 01-24-2022 Miscellaneous Notes Tian with [facility] called and requesting copy of last OV for pt. Pt was identified by name and date of . Faxed to [phone]. Selma Echevraria LPN documented in this encounter [facility] 01-04-2022 History of Present illness Narrative Scan on 01/04/2022 9:59 AM by External Provider: Consultation - Cardiology documented in this encounter [facility] 12-13-2021 Miscellaneous Notes PharmJevon spoke with Frida. [...] if needs additional assistance. Karen Piper PharmD, [facility] Primary Care Clinical Pharmacist Rhea HARRIS [facility] Kai called Frida but unable to reach, LEFT MESSAGE ON MACHINE to return call to office. Karen Piper PharmD, [facility] Primary Care Clinical Pharmacist Rhea HARRIS [facility] Patient's sister Frida calls and is [...] Beverly Rawls RN documented in this encounter [facility] 11-22-2021 Miscellaneous Notes Patient notified of results, verbalizes understanding of instructions. Paula Donaldson LPN Let patient know urine and blood protein studies were normal. Bleeding studies were normal. BMP was ok except for elevated blood sugar. 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 If chest symptoms persist follow-up with PCP or seam press operator. Medications sent to [facility] pharmacy in [place]. Thanks, Ade Garcia APRN.MIGEL documented in this encounter [facility] documented as of this encounter (statuses as of 12/03/2021) [facility] History of Past illness Narrative* Problem Noted Date Resolved Date Well adult exam 10/03/2016 04/12/2020 Overview: last done: 07/16/19. does not want colonoscopies. Other physical therapy 08/16/2010 0 Sprain of neck 07/30/2010 08/30/2010 Unspecified pruritic disorder 03/02/2009 Cervicalgia 10/16/2006 10/30/2018 Hyperlipidemia 08/04/2015 documented as of this encounter (statuses as of 12/13/2021) [facility] History of Past illness Narrative* Problem Noted Date Resolved Date Well adult exam 10/03/2016 04/12/2020 Overview: last done: 07/16/19. does not want colonoscopies. Other physical therapy 08/16/2010 0 Sprain of neck 07/30/2010 08/30/2010 Unspecified pruritic disorder 03/02/2009 Cervicalgia 10/16/2006 10/30/2018 Hyperlipidemia 08/04/2015 documented as of this encounter (statuses as of 01/07/2022) [facility] History of Past illness Narrative* Problem Noted Date Resolved Date Well adult exam 10/03/2016 04/12/2020 Overview: last done: 07/16/19. does not want colonoscopies. Other physical therapy 08/16/2010 0 Sprain of neck 07/30/2010 08/30/2010 Unspecified pruritic disorder 03/02/2009 Cervicalgia 10/16/2006 10/30/2018 Hyperlipidemia 08/04/2015 documented as of this encounter (statuses as of 01/24/2022) [facility] History of Past illness Narrative* Problem Noted Date Resolved Date Well adult exam 10/03/2016 04/12/2020 Overview: last done: 07/16/19. does not want colonoscopies. Other physical therapy 08/16/2010 0 Sprain of neck 07/30/2010 08/30/2010 Unspecified pruritic disorder 03/02/2009 Cervicalgia 10/16/2006 10/30/2018 Hyperlipidemia 08/04/2015 documented as of this encounter (statuses as of 01/30/2022) [facility] History of Past illness Narrative* Problem Noted Date Resolved Date Well adult exam 10/03/2016 04/12/2020 Overview: last done: 07/16/19. does not want colonoscopies. Other physical therapy 08/16/2010 0 Sprain of neck 07/30/2010 08/30/2010 Unspecified pruritic disorder 03/02/2009 Cervicalgia 10/16/2006 10/30/2018 Hyperlipidemia 08/04/2015 documented as of this encounter (statuses as of 01/31/2022) [facility] History of Past illness Narrative* Problem Noted Date Resolved Date Well adult exam 10/03/2016 04/12/2020 Overview: last done: 07/16/19. does not want colonoscopies. Other physical therapy 08/16/2010 0 Sprain of neck 07/30/2010 08/30/2010 Unspecified pruritic disorder 03/02/2009 Cervicalgia 10/16/2006 10/30/2018 Hyperlipidemia 08/04/2015 documented as of this encounter (statuses as of 02/11/2022) [facility] History of Past illness Narrative* Problem Noted Date Resolved Date Well adult exam 10/03/2016 04/12/2020 Overview: last done: 07/16/19. does not want colonoscopies. Other physical therapy 08/16/2010 0 Sprain of neck 07/30/2010 08/30/2010 Unspecified pruritic disorder 03/02/2009 Cervicalgia 10/16/2006 10/30/2018 Hyperlipidemia 08/04/2015 documented as of this encounter (statuses as of 02/22/2022) [facility] History of Past illness Narrative* Problem Noted Date Resolved Date Well adult exam 10/03/2016 04/12/2020 Overview: last done: 07/16/19. does not want colonoscopies. Other physical therapy 08/16/2010 0 Sprain of neck 07/30/2010 08/30/2010 Unspecified pruritic disorder 03/02/2009 Cervicalgia 10/16/2006 10/30/2018 Hyperlipidemia 08/04/2015 documented as of this encounter (statuses as of 02/26/2022) [facility] History of Past illness Narrative* Problem Noted Date Resolved Date Well adult exam 10/03/2016 04/12/2020 Overview: last done: 07/16/19. does not want colonoscopies. Other physical therapy 08/16/2010 0 Sprain of neck 07/30/2010 08/30/2010 Unspecified pruritic disorder 03/02/2009 Cervicalgia 10/16/2006 10/30/2018 Hyperlipidemia 08/04/2015 documented as of this encounter (statuses as of 03/19/2022) [facility] History of Past illness Narrative* Problem Noted Date Resolved Date Well adult exam 10/03/2016 04/12/2020 Overview: last done: 07/16/19. does not want colonoscopies. Other physical therapy 08/16/2010 0 Sprain of neck 07/30/2010 08/30/2010 Unspecified pruritic disorder 03/02/2009 Cervicalgia 10/16/2006 10/30/2018 Hyperlipidemia 08/04/2015 documented as of this encounter (statuses as of 03/20/2022) [facility] History of Past illness Narrative* Problem Noted Date Resolved Date Well adult exam 10/03/2016 04/12/2020 Overview: last done: 07/16/19. does not want colonoscopies. Other physical therapy 08/16/2010 0 Sprain of neck 07/30/2010 08/30/2010 Unspecified pruritic disorder 03/02/2009 Cervicalgia 10/16/2006 10/30/2018 Hyperlipidemia 08/04/2015 documented as of this encounter (statuses as of 03/20/2022) [facility] History of Past illness Narrative* Problem Noted Date Resolved Date Well adult exam 10/03/2016 04/12/2020 Overview: last done: 07/16/19. does not want colonoscopies. Other physical therapy 08/16/2010 0 Sprain of neck 07/30/2010 08/30/2010 Unspecified pruritic disorder 03/02/2009 Cervicalgia 10/16/2006 10/30/2018 Hyperlipidemia 08/04/2015 documented as of this encounter (statuses as of 03/25/2022) [facility] History of Past illness Narrative* Problem Noted Date Resolved Date Well adult exam 10/03/2016 04/12/2020 Overview: last done: 07/16/19. does not want colonoscopies. Other physical therapy 08/16/2010 0 Sprain of neck 07/30/2010 08/30/2010 Unspecified pruritic disorder 03/02/2009 Cervicalgia 10/16/2006 10/30/2018 Hyperlipidemia 08/04/2015 documented as of this encounter (statuses as of 04/04/2022) [facility] History of Past illness Narrative* Problem Noted Date Resolved Date Well adult exam 10/03/2016 04/12/2020 Overview: last done: 07/16/19. does not want colonoscopies. Other physical therapy 08/16/2010 0 Sprain of neck 07/30/2010 08/30/2010 Unspecified pruritic disorder 03/02/2009 Cervicalgia 10/16/2006 10/30/2018 Hyperlipidemia 08/04/2015 documented as of this encounter (statuses as of 04/09/2022) [facility] History of Past illness Narrative* Problem Noted Date Resolved Date Well adult exam 10/03/2016 04/12/2020 Overview: last done: 07/16/19. does not want colonoscopies. Other physical therapy 08/16/2010 0 Sprain of neck 07/30/2010 08/30/2010 Unspecified pruritic disorder 03/02/2009 Cervicalgia 10/16/2006 10/30/2018 Hyperlipidemia 08/04/2015 documented as of this encounter (statuses as of 04/19/2022) [facility] History of Past illness Narrative* Problem Noted Date Resolved Date Well adult exam 10/03/2016 04/12/2020 Overview: last done: 07/16/19. does not want colonoscopies. Other physical therapy 08/16/2010 0 Sprain of neck 07/30/2010 08/30/2010 Unspecified pruritic disorder 03/02/2009 Cervicalgia 10/16/2006 10/30/2018 Hyperlipidemia 08/04/2015 documented as of this encounter (statuses as of 04/26/2022) [facility] History of Past illness Narrative* Problem Noted Date Resolved Date Well adult exam 10/03/2016 04/12/2020 Overview: last done: 07/16/19. does not want colonoscopies. Other physical therapy 08/16/2010 0 Sprain of neck 07/30/2010 08/30/2010 Unspecified pruritic disorder 03/02/2009 Cervicalgia 10/16/2006 10/30/2018 Hyperlipidemia 08/04/2015 documented as of this encounter (statuses as of 04/28/2022) [facility] History of Past illness Narrative* Problem Noted Date Resolved Date Well adult exam 10/03/2016 04/12/2020 Overview: last done: 07/16/19. does not want colonoscopies. Other physical therapy 08/16/2010 0 Sprain of neck 07/30/2010 08/30/2010 Unspecified pruritic disorder 03/02/2009 Cervicalgia 10/16/2006 10/30/2018 Hyperlipidemia 08/04/2015 documented as of this encounter (statuses as of 04/30/2022) [facility] History of Past illness Narrative* Problem Noted Date Resolved Date Well adult exam 10/03/2016 04/12/2020 Overview: last done: 07/16/19. does not want colonoscopies. Other physical therapy 08/16/2010 0 Sprain of neck 07/30/2010 08/30/2010 Unspecified pruritic disorder 03/02/2009 Cervicalgia 10/16/2006 10/30/2018 Hyperlipidemia 08/04/2015 documented as of this encounter (statuses as of 05/02/2022) [facility] History of Past illness Narrative* Problem Noted Date Resolved Date Well adult exam 10/03/2016 04/12/2020 Overview: last done: 07/16/19. does not want colonoscopies. Other physical therapy 08/16/2010 0 Sprain of neck 07/30/2010 08/30/2010 Unspecified pruritic disorder 03/02/2009 Cervicalgia 10/16/2006 10/30/2018 Hyperlipidemia 08/04/2015 documented as of this encounter (statuses as of 05/03/2022) [facility] History of Past illness Narrative* Problem Noted Date Resolved Date Well adult exam 10/03/2016 04/12/2020 Overview: last done: 07/16/19. does not want colonoscopies. Other physical therapy 08/16/2010 0 Sprain of neck 07/30/2010 08/30/2010 Unspecified pruritic disorder 03/02/2009 Cervicalgia 10/16/2006 10/30/2018 Hyperlipidemia 08/04/2015 documented as of this encounter (statuses as of 05/13/2022) [facility] History of Past illness Narrative* Problem Noted Date Resolved Date Well adult exam 10/03/2016 04/12/2020 Overview: last done: 07/16/19. does not want colonoscopies. Other physical therapy 08/16/2010 0 Sprain of neck 07/30/2010 08/30/2010 Unspecified pruritic disorder 03/02/2009 Cervicalgia 10/16/2006 10/30/2018 Hyperlipidemia 08/04/2015 documented as of this encounter (statuses as of 05/15/2022) [facility] History of Past illness Narrative* Problem Noted Date Resolved Date Well adult exam 10/03/2016 04/12/2020 Overview: last done: 07/16/19. does not want colonoscopies. Other physical therapy 08/16/2010 0 Sprain of neck 07/30/2010 08/30/2010 Unspecified pruritic disorder 03/02/2009 Cervicalgia 10/16/2006 10/30/2018 Hyperlipidemia 08/04/2015 documented as of this encounter (statuses as of 05/25/2022) [facility] History of Past illness Narrative* Problem Noted Date Resolved Date Well adult exam 10/03/2016 04/12/2020 Overview: last done: 07/16/19. does not want colonoscopies. Other physical therapy 08/16/2010 0 Sprain of neck 07/30/2010 08/30/2010 Unspecified pruritic disorder 03/02/2009 Cervicalgia 10/16/2006 10/30/2018 Hyperlipidemia 08/04/2015 documented as of this encounter (statuses as of 05/28/2022) [facility] History of Past illness Narrative* Problem Noted Date Resolved Date Well adult exam 10/03/2016 04/12/2020 Overview: last done: 07/16/19. does not want colonoscopies. Other physical therapy 08/16/2010 0 Sprain of neck 07/30/2010 08/30/2010 Unspecified pruritic disorder 03/02/2009 Cervicalgia 10/16/2006 10/30/2018 Hyperlipidemia 08/04/2015 documented as of this encounter (statuses as of 05/29/2022) [facility] History of Past illness Narrative* Problem Noted Date Resolved Date Well adult exam 10/03/2016 04/12/2020 Overview: last done: 07/16/19. does not want colonoscopies. Other physical therapy 08/16/2010 0 Sprain of neck 07/30/2010 08/30/2010 Unspecified pruritic disorder 03/02/2009 Cervicalgia 10/16/2006 10/30/2018 Hyperlipidemia 08/04/2015 documented as of this encounter (statuses as of 05/30/2022) [facility] [facility] Narrative* Problem Noted Date Resolved Date Well adult exam 10/03/2016 04/12/2020 Overview: last done: 07/16/19. does not want colonoscopies. Other physical therapy 08/16/2010 0 Sprain of neck 07/30/2010 08/30/2010 Unspecified pruritic disorder 03/02/2009 Cervicalgia 10/16/2006 10/30/2018 Hyperlipidemia 08/04/2015 documented as of this encounter (statuses as of 06/20/2022) [facility]02-02[facility] History of Past illness Narrative* Problem Noted Date Resolved Date Well adult exam 10/03/2016 04/12/2020 Overview: last done: 07/16/19. does not want colonoscopies. Other physical therapy 08/16/2010 0 Sprain of neck 07/30/2010 08/30/2010 Unspecified pruritic disorder 03/02/2009 Cervicalgia 10/16/2006 10/30/2018 Hyperlipidemia 08/04/2015 documented as of this encounter (statuses as of 06/25/2022) [facility] History of Past illness Narrative* Problem Noted Date Resolved Date Well adult exam 10/03/2016 04/12/2020 Overview: last done: 07/16/19. does not want colonoscopies. Other physical therapy 08/16/2010 0 Sprain of neck 07/30/2010 08/30/2010 Unspecified pruritic disorder 03/02/2009 Cervicalgia 10/16/2006 10/30/2018 Hyperlipidemia 08/04/2015 documented as of this encounter (statuses as of 06/25/2022) [facility] History of Past illness Narrative* Problem Noted Date Resolved Date Well adult exam 10/03/2016 04/12/2020 Overview: last done: 07/16/19. does not want colonoscopies. Other physical therapy 08/16/2010 0 Sprain of neck 07/30/2010 08/30/2010 Unspecified pruritic disorder 03/02/2009 Cervicalgia 10/16/2006 10/30/2018 Hyperlipidemia 08/04/2015 documented as of this encounter (statuses as of 06/26/2022) [facility] History of Past illness Narrative* Problem Noted Date Resolved Date Well adult exam 10/03/2016 04/12/2020 Overview: last done: 07/16/19. does not want colonoscopies. Other physical therapy 08/16/2010 0 Sprain of neck 07/30/2010 08/30/2010 Unspecified pruritic disorder 03/02/2009 Cervicalgia 10/16/2006 10/30/2018 Hyperlipidemia 08/04/2015 documented as of this encounter (statuses as of 06/27/2022) [facility] History of Past illness Narrative* Problem Noted Date Resolved Date Well adult exam 10/03/2016 04/12/2020 Overview: last done: 07/16/19. does not want colonoscopies. Other physical therapy 08/16/2010 0 Sprain of neck 07/30/2010 08/30/2010 Unspecified pruritic disorder 03/02/2009 Cervicalgia 10/16/2006 10/30/2018 Hyperlipidemia 08/04/2015 documented as of this encounter (statuses as of 07/02/2022) [facility] History of Past illness Narrative* Problem Noted Date Resolved Date Well adult exam 10/03/2016 04/12/2020 Overview: last done: 07/16/19. does not want colonoscopies. Other physical therapy 08/16/2010 0 Sprain of neck 07/30/2010 08/30/2010 Unspecified pruritic disorder 03/02/2009 Cervicalgia 10/16/2006 10/30/2018 Hyperlipidemia 08/04/2015 documented as of this encounter (statuses as of 07/02/2022) [facility] History of Past illness Narrative* Problem Noted Date Resolved Date Well adult exam 10/03/2016 04/12/2020 Overview: last done: 07/16/19. does not want colonoscopies. Other physical therapy 08/16/2010 0 Sprain of neck 07/30/2010 08/30/2010 Unspecified pruritic disorder 03/02/2009 Cervicalgia 10/16/2006 10/30/2018 Hyperlipidemia 08/04/2015 documented as of this encounter (statuses as of 07/05/2022) [facility] History of Past illness Narrative* Problem Noted Date Resolved Date Well adult exam 10/03/2016 04/12/2020 Overview: last done: 07/16/19. does not want colonoscopies. Other physical therapy 08/16/2010 0 Sprain of neck 07/30/2010 08/30/2010 Unspecified pruritic disorder 03/02/2009 Cervicalgia 10/16/2006 10/30/2018 Hyperlipidemia 08/04/2015 documented as of this encounter (statuses as of 07/10/2022) [facility] History of Past illness Narrative* Problem Noted Date Resolved Date Well adult exam 10/03/2016 04/12/2020 Overview: last done: 07/16/19. does not want colonoscopies. Other physical therapy 08/16/2010 0 Sprain of neck 07/30/2010 08/30/2010 Unspecified pruritic disorder 03/02/2009 Cervicalgia 10/16/2006 10/30/2018 Hyperlipidemia 08/04/2015 documented as of this encounter (statuses as of 07/10/2022) [facility] History of Past illness Narrative* Problem Noted Date Resolved Date Well adult exam 10/03/2016 04/12/2020 Overview: last done: 07/16/19. does not want colonoscopies. Other physical therapy 08/16/2010 0 Sprain of neck 07/30/2010 08/30/2010 Unspecified pruritic disorder 03/02/2009 Cervicalgia 10/16/2006 10/30/2018 Hyperlipidemia 08/04/2015 documented as of this encounter (statuses as of 07/11/2022) [facility] History of Past illness Narrative* Problem Noted Date Resolved Date Well adult exam 10/03/2016 04/12/2020 Overview: last done: 07/16/19. does not want colonoscopies. Other physical therapy 08/16/2010 0 Sprain of neck 07/30/2010 08/30/2010 Unspecified pruritic disorder 03/02/2009 Cervicalgia 10/16/2006 10/30/2018 Hyperlipidemia 08/04/2015 documented as of this encounter (statuses as of 07/12/2022) [facility] History of Past illness Narrative* Problem Noted Date Resolved Date Well adult exam 10/03/2016 04/12/2020 Overview: last done: 07/16/19. does not want colonoscopies. Other physical therapy 08/16/2010 0 Sprain of neck 07/30/2010 08/30/2010 Unspecified pruritic disorder 03/02/2009 Cervicalgia 10/16/2006 10/30/2018 Hyperlipidemia 08/04/2015 documented as of this encounter (statuses as of 07/29/2022) [facility] History of Past illness Narrative* Problem Noted Date Resolved Date Well adult exam 10/03/2016 04/12/2020 Overview: last done: 07/16/19. does not want colonoscopies. Other physical therapy 08/16/2010 0 Sprain of neck 07/30/2010 08/30/2010 Unspecified pruritic disorder 03/02/2009 Cervicalgia 10/16/2006 10/30/2018 Hyperlipidemia 08/04/2015 documented as of this encounter (statuses as of 07/30/2022) [facility] History of Past illness Narrative* Problem Noted Date Resolved Date Well adult exam 10/03/2016 04/12/2020 Overview: last done: 07/16/19. does not want colonoscopies. Other physical therapy 08/16/2010 0 Sprain of neck 07/30/2010 08/30/2010 Unspecified pruritic disorder 03/02/2009 Cervicalgia 10/16/2006 10/30/2018 Hyperlipidemia 08/04/2015 documented as of this encounter (statuses as of 08/05/2022) [facility] History of Past illness Narrative* Problem Noted Date Resolved Date Well adult exam 10/03/2016 04/12/2020 Overview: last done: 07/16/19. does not want colonoscopies. Other physical therapy 08/16/2010 0 Sprain of neck 07/30/2010 08/30/2010 Unspecified pruritic disorder 03/02/2009 Cervicalgia 10/16/2006 10/30/2018 Hyperlipidemia 08/04/2015 documented as of this encounter (statuses as of 08/07/2022) [facility] History of Past illness Narrative* Problem Noted Date Resolved Date Well adult exam 10/03/2016 04/12/2020 Overview: last done: 07/16/19. does not want colonoscopies. Other physical therapy 08/16/2010 0 Sprain of neck 07/30/2010 08/30/2010 Unspecified pruritic disorder 03/02/2009 Cervicalgia 10/16/2006 10/30/2018 Hyperlipidemia 08/04/2015 documented as of this encounter (statuses as of 08/23/2022) [facility] History of Past illness Narrative* Problem Noted Date Resolved Date Well adult exam 10/03/2016 04/12/2020 Overview: last done: 07/16/19. does not want colonoscopies. Other physical therapy 08/16/2010 0 Sprain of neck 07/30/2010 08/30/2010 Unspecified pruritic disorder 03/02/2009 Cervicalgia 10/16/2006 10/30/2018 Hyperlipidemia 08/04/2015 documented as of this encounter (statuses as of 08/23/2022) [facility] History of Past illness Narrative* Problem Noted Date Resolved Date Well adult exam 10/03/2016 04/12/2020 Overview: last done: 07/16/19. does not want colonoscopies. Other physical therapy 08/16/2010 0 Sprain of neck 07/30/2010 08/30/2010 Unspecified pruritic disorder 03/02/2009 Cervicalgia 10/16/2006 10/30/2018 Hyperlipidemia 08/04/2015 documented as of this encounter (statuses as of 09/03/2022) [facility] History of Past illness Narrative* Problem Noted Date Resolved Date Well adult exam 10/03/2016 04/12/2020 Overview: last done: 07/16/19. does not want colonoscopies. Other physical therapy 08/16/2010 0 Sprain of neck 07/30/2010 08/30/2010 Unspecified pruritic disorder 03/02/2009 Cervicalgia 10/16/2006 10/30/2018 Hyperlipidemia 08/04/2015 documented as of this encounter (statuses as of 09/04/2022) [facility] History of Past illness Narrative* Problem Noted Date Resolved Date Well adult exam 10/03/2016 04/12/2020 Overview: last done: 07/16/19. does not want colonoscopies. Other physical therapy 08/16/2010 0 Sprain of neck 07/30/2010 08/30/2010 Unspecified pruritic disorder 03/02/2009 Cervicalgia 10/16/2006 10/30/2018 Hyperlipidemia 08/04/2015 documented as of this encounter (statuses as of 09/06/2022) [facility] History of Past illness Narrative* Problem Noted Date Resolved Date Well adult exam 10/03/2016 04/12/2020 Overview: last done: 07/16/19. does not want colonoscopies. Other physical therapy 08/16/2010 0 Sprain of neck 07/30/2010 08/30/2010 Unspecified pruritic disorder 03/02/2009 Cervicalgia 10/16/2006 10/30/2018 Hyperlipidemia 08/04/2015 documented as of this encounter (statuses as of 09/24/2022) [facility] History of Past illness Narrative* Problem Noted Date Resolved Date Well adult exam 10/03/2016 04/12/2020 Overview: last done: 07/16/19. does not want colonoscopies. Other physical therapy 08/16/2010 0 Sprain of neck 07/30/2010 08/30/2010 Unspecified pruritic disorder 03/02/2009 Cervicalgia 10/16/2006 10/30/2018 Hyperlipidemia 08/04/2015 documented as of this encounter (statuses as of 09/24/2022) [facility] History of Past illness Narrative* Problem Noted Date Resolved Date Well adult exam 10/03/2016 04/12/2020 Overview: last done: 07/16/19. does not want colonoscopies. Other physical therapy 08/16/2010 0 Sprain of neck 07/30/2010 08/30/2010 Unspecified pruritic disorder 03/02/2009 Cervicalgia 10/16/2006 10/30/2018 Hyperlipidemia 08/04/2015 documented as of this encounter (statuses as of 09/24/2022) [facility] History of Past illness Narrative* Problem Noted Date Resolved Date Well adult exam 10/03/2016 04/12/2020 Overview: last done: 07/16/19. does not want colonoscopies. Other physical therapy 08/16/2010 0 Sprain of neck 07/30/2010 08/30/2010 Unspecified pruritic disorder 03/02/2009 Cervicalgia 10/16/2006 10/30/2018 Hyperlipidemia 08/04/2015 documented as of this encounter (statuses as of 10/02/2022) [facility] History of Past illness Narrative* Problem Noted Date Resolved Date Well adult exam 10/03/2016 04/12/2020 Overview: last done: 07/16/19. does not want colonoscopies. Other physical therapy 08/16/2010 0 Sprain of neck 07/30/2010 08/30/2010 Unspecified pruritic disorder 03/02/2009 Cervicalgia 10/16/2006 10/30/2018 Hyperlipidemia 08/04/2015 documented as of this encounter (statuses as of 10/08/2022) [facility] History of Past illness Narrative* Problem Noted Date Resolved Date Well adult exam 10/03/2016 04/12/2020 Overview: last done: 07/16/19. does not want colonoscopies. Other physical therapy 08/16/2010 0 Sprain of neck 07/30/2010 08/30/2010 Unspecified pruritic disorder 03/02/2009 Cervicalgia 10/16/2006 10/30/2018 Hyperlipidemia 08/04/2015 documented as of this encounter (statuses as of 10/15/2022) [facility] History of Past illness Narrative* Problem Noted Date Resolved Date Well adult exam 10/03/2016 04/12/2020 Overview: last done: 07/16/19. does not want colonoscopies. Other physical therapy 08/16/2010 0 Sprain of neck 07/30/2010 08/30/2010 Unspecified pruritic disorder 03/02/2009 Cervicalgia 10/16/2006 10/30/2018 Hyperlipidemia 08/04/2015 documented as of this encounter (statuses as of 10/24/2022) [facility] History of Past illness Narrative* Problem Noted Date Resolved Date Well adult exam 10/03/2016 04/12/2020 Overview: last done: 07/16/19. does not want colonoscopies. Other physical therapy 08/16/2010 0 Sprain of neck 07/30/2010 08/30/2010 Unspecified pruritic disorder 03/02/2009 Cervicalgia 10/16/2006 10/30/2018 Hyperlipidemia 08/04/2015 documented as of this encounter (statuses as of 11/05/2022) [facility] History of Past illness Narrative* Problem Noted Date Resolved Date Well adult exam 10/03/2016 04/12/2020 Overview: last done: 07/16/19. does not want colonoscopies. Other physical therapy 08/16/2010 0 Sprain of neck 07/30/2010 08/30/2010 Unspecified pruritic disorder 03/02/2009 Cervicalgia 10/16/2006 10/30/2018 Hyperlipidemia 08/04/2015 documented as of this encounter (statuses as of 11/05/2022) [facility] History of Past illness Narrative* Problem Noted Date Resolved Date Well adult exam 10/03/2016 04/12/2020 Overview: last done: 07/16/19. does not want colonoscopies. Other physical therapy 08/16/2010 0 Sprain of neck 07/30/2010 08/30/2010 Unspecified pruritic disorder 03/02/2009 Cervicalgia 10/16/2006 10/30/2018 Hyperlipidemia 08/04/2015 documented as of this encounter (statuses as of 11/12/2022) [facility] History of Past illness Narrative* Problem Noted Date Resolved Date Well adult exam 10/03/2016 04/12/2020 Overview: last done: 07/16/19. does not want colonoscopies. Other physical therapy 08/16/2010 0 Sprain of neck 07/30/2010 08/30/2010 Unspecified pruritic disorder 03/02/2009 Cervicalgia 10/16/2006 10/30/2018 Hyperlipidemia 08/04/2015 documented as of this encounter (statuses as of 11/14/2022) [facility] History of Past illness Narrative* Problem Noted Date Resolved Date Well adult exam 10/03/2016 04/12/2020 Overview: last done: 07/16/19. does not want colonoscopies. Other physical therapy 08/16/2010 0 Sprain of neck 07/30/2010 08/30/2010 Unspecified pruritic disorder 03/02/2009 Cervicalgia 10/16/2006 10/30/2018 Hyperlipidemia 08/04/2015 documented as of this encounter (statuses as of 11/21/2022) [facility] History of Past illness Narrative* Problem Noted Date Resolved Date Well adult exam 10/03/2016 04/12/2020 Overview: last done: 07/16/19. does not want colonoscopies. Other physical therapy 08/16/2010 0 Sprain of neck 07/30/2010 08/30/2010 Unspecified pruritic disorder 03/02/2009 Cervicalgia 10/16/2006 10/30/2018 Hyperlipidemia 08/04/2015 documented as of this encounter (statuses as of 11/28/2022) [facility] History of Past illness Narrative* Problem Noted Date Resolved Date Well adult exam 10/03/2016 04/12/2020 Overview: last done: 07/16/19. does not want colonoscopies. Other physical therapy 08/16/2010 0 Sprain of neck 07/30/2010 08/30/2010 Unspecified pruritic disorder 03/02/2009 Cervicalgia 10/16/2006 10/30/2018 Hyperlipidemia 08/04/2015 documented as of this encounter (statuses as of 11/29/2022) [facility] History of Past illness Narrative* Problem Noted Date Resolved Date Well adult exam 10/03/2016 04/12/2020 Overview: last done: 07/16/19. does not want colonoscopies. Other physical therapy 08/16/2010 0 Sprain of neck 07/30/2010 08/30/2010 Unspecified pruritic disorder 03/02/2009 Cervicalgia 10/16/2006 10/30/2018 Hyperlipidemia 08/04/2015 documented as of this encounter (statuses as of 01/08/2023) [facility] History of Past illness Narrative* Problem Noted Date Resolved Date Well adult exam 10/03/2016 04/12/2020 Overview: last done: 07/16/19. does not want colonoscopies. Other physical therapy 08/16/2010 0 Sprain of neck 07/30/2010 08/30/2010 Unspecified pruritic disorder 03/02/2009 Cervicalgia 10/16/2006 10/30/2018 Hyperlipidemia 08/04/2015 documented as of this encounter (statuses as of 02/04/2023) [facility] History of Past illness Narrative* Problem Noted Date Resolved Date Well adult exam 10/03/2016 04/12/2020 Overview: last done: 07/16/19. does not want colonoscopies. Other physical therapy 08/16/2010 0 Sprain of neck 07/30/2010 08/30/2010 Unspecified pruritic disorder 03/02/2009 Cervicalgia 10/16/2006 10/30/2018 Hyperlipidemia 08/04/2015 documented as of this encounter (statuses as of 02/24/2023) [facility] History of Past illness Narrative* Problem Noted Date Diagnosed Date Resolved Date Well adult exam 10/03/2016 04/12/2020 Overview: last done: 07/16/19. does not want colonoscopies. Other physical therapy 08/16/201008/30 Sprain of neck 07/30/2010 08/30/2010 Unspecified pruritic disorder 03/02/2009 04/12/2020 Cervicalgia 10/16/2006 10/30/2018 Hyperlipidemia 08/04/2015 documented as of this encounter (statuses as of 03/10/2023) [facility] History of Past illness Narrative* Problem Noted Date Diagnosed Date Resolved Date Well adult exam 10/03/2016 04/12/2020 Overview: last done: 07/16/19. does not want colonoscopies. Other physical therapy 08/16/201008/30 Sprain of neck 07/30/2010 08/30/2010 Unspecified pruritic disorder 03/02/2009 04/12/2020 Cervicalgia 10/16/2006 10/30/2018 Hyperlipidemia 08/04/2015 documented as of this encounter (statuses as of 04/01/2023) [facility] History of Past illness Narrative* Problem Noted Date Diagnosed Date Resolved Date Well adult exam 10/03/2016 04/12/2020 Overview: last done: 07/16/19. does not want colonoscopies. Other physical therapy 08/16/201008/30 Sprain of neck 07/30/2010 08/30/2010 Unspecified pruritic disorder 03/02/2009 04/12/2020 Cervicalgia 10/16/2006 10/30/2018 Hyperlipidemia 08/04/2015 documented as of this encounter (statuses as of 04/02/2023) [facility] History of Past illness Narrative* Problem Noted Date Diagnosed Date Resolved Date Well adult exam 10/03/2016 04/12/2020 Overview: last done: 07/16/19. does not want colonoscopies. Other physical therapy 08/16/201008/30 Sprain of neck 07/30/2010 08/30/2010 Unspecified pruritic disorder 03/02/2009 04/12/2020 Cervicalgia 10/16/2006 10/30/2018 Hyperlipidemia 08/04/2015 documented as of this encounter (statuses as of 04/03/2023) [facility] History of Past illness Narrative* Problem Noted Date Diagnosed Date Resolved Date Well adult exam 10/03/2016 04/12/2020 Overview: last done: 07/16/19. does not want colonoscopies. Other physical therapy 08/16/201008/30 Sprain of neck 07/30/2010 08/30/2010 Unspecified pruritic disorder 03/02/2009 04/12/2020 Cervicalgia 10/16/2006 10/30/2018 Hyperlipidemia 08/04/2015 documented as of this encounter (statuses as of 04/05/2023) [facility] History of Past illness Narrative* Problem Noted Date Diagnosed Date Resolved Date Well adult exam 10/03/2016 04/12/2020 Overview: last done: 07/16/19. does not want colonoscopies. Other physical therapy 08/16/201008/30 Sprain of neck 07/30/2010 08/30/2010 Unspecified pruritic disorder 03/02/2009 04/12/2020 Cervicalgia 10/16/2006 10/30/2018 Hyperlipidemia 08/04/2015 documented as of this encounter (statuses as of 04/12/2023) [facility] History of Past illness Narrative* Problem Noted Date Diagnosed Date Resolved Date Well adult exam 10/03/2016 04/12/2020 Overview: last done: 07/16/19. does not want colonoscopies. Other physical therapy 08/16/201008/30 Sprain of neck 07/30/2010 08/30/2010 Unspecified pruritic disorder 03/02/2009 04/12/2020 Cervicalgia 10/16/2006 10/30/2018 Hyperlipidemia 08/04/2015 documented as of this encounter (statuses as of 05/18/2023) [facility] History of Past illness Narrative* Problem Noted Date Diagnosed Date Resolved Date Well adult exam 10/03/2016 04/12/2020 Overview: last done: 07/16/19. does not want colonoscopies. Other physical therapy 08/16/201008/30 Sprain of neck 07/30/2010 08/30/2010 Unspecified pruritic disorder 03/02/2009 04/12/2020 Cervicalgia 10/16/2006 10/30/2018 Hyperlipidemia 08/04/2015 documented as of this encounter (statuses as of 06/19/2023) [facility] History of Past illness Narrative* Problem Noted Date Diagnosed Date Resolved Date Well adult exam 10/03/2016 04/12/2020 Overview: last done: 07/16/19. does not want colonoscopies. Other physical therapy 08/16/201008/30 Sprain of neck 07/30/2010 08/30/2010 Unspecified pruritic disorder 03/02/2009 04/12/2020 Cervicalgia 10/16/2006 10/30/2018 Hyperlipidemia 08/04/2015 documented as of this encounter (statuses as of 06/26/2023) [facility] History of Past illness Narrative* Problem Noted Date Diagnosed Date Resolved Date Well adult exam 10/03/2016 04/12/2020 Overview: last done: 07/16/19. does not want colonoscopies. Other physical therapy 08/16/201008/30 Sprain of neck 07/30/2010 08/30/2010 Unspecified pruritic disorder 03/02/2009 04/12/2020 Cervicalgia 10/16/2006 10/30/2018 Hyperlipidemia 08/04/2015 documented as of this encounter (statuses as of 06/27/2023) [facility] History of Past illness Narrative* Problem Noted Date Diagnosed Date Resolved Date Well adult exam 10/03/2016 04/12/2020 Overview: last done: 07/16/19. does not want colonoscopies. Other physical therapy 08/16/201008/30 Sprain of neck 07/30/2010 08/30/2010 Unspecified pruritic disorder 03/02/2009 04/12/2020 Cervicalgia 10/16/2006 10/30/2018 Hyperlipidemia 08/04/2015 documented as of this encounter (statuses as of 06/27/2023) [facility] History of Past illness Narrative* Problem Noted Date Diagnosed Date Resolved Date Well adult exam 10/03/2016 04/12/2020 Overview: last done: 07/16/19. does not want colonoscopies. Other physical therapy 08/16/201008/30 Sprain of neck 07/30/2010 08/30/2010 Unspecified pruritic disorder 03/02/2009 04/12/2020 Cervicalgia 10/16/2006 10/30/2018 Hyperlipidemia 08/04/2015 documented as of this encounter (statuses as of 07/06/2023) [address]02-2017 History of Past illness Narrative* Problem Noted Date Diagnosed Date Resolved Date Well adult exam 10/03/2016 04/12/2020 Overview: last done: 07/16/19. does not want colonoscopies. Other physical therapy 08/16/201008/30 Sprain of neck 07/30/2010 08/30/2010 Unspecified pruritic disorder 03/02/2009 04/12/2020 Cervicalgia 10/16/2006 10/30/2018 Hyperlipidemia 08/04/2015 documented as of this encounter (statuses as of 07/06/2023) [facility] History of Past illness Narrative* Problem Noted Date Diagnosed Date Resolved Date Well adult exam 10/03/2016 04/12/2020 Overview: last done: 07/16/19. does not want colonoscopies. Other physical therapy 08/16/201008/30 Sprain of neck 07/30/2010 08/30/2010 Unspecified pruritic disorder 03/02/2009 04/12/2020 Cervicalgia 10/16/2006 10/30/2018 Hyperlipidemia 08/04/2015 documented as of this encounter (statuses as of 07/06/2023) [facility] Diagnosis Type 2 diabetes mellitus without complication, without long-term current use of insulin (HCC) [facility] Syncope, unspecified syncope type- Primary Orthostatic hypotension Facial numbness Disturbance of skin sensation Injury of head, sequela Chronic post-traumatic headache, not intractable Chronic post-traumatic headache [facility] Orthostatic hypotension- Primary [facility] Mixed hyper[facility] Injury of head, initial encounter [facility] [facility]* Diagnosis Injury of head, initial encounter [facility] Chest pain, unspecified type [facility] Diagnosis Situational depression- Primary Adjustment disorder with depressed mood Panic disorder Panic disorder without agoraphobia [facility] Diagnosis Orthostatic hypotension- Primary Occipital neuralgia of right side Neuropathy Mononeuritis of unspecified site Syncope and collapse [facility] Encounter for immunization- Primary Need for other specified prophylactic vaccination against single bacterial disease Type 2 diabetes mellitus with diabetic neuropathy, without long-term current use of insulin ([facility]) Essential hypertension, benign Mixed hyperlipidemia Coronary atherosclerosis due to lipid rich plaque GERD without esophagitis Esophageal reflux Carotid stenosis, asymptomatic, bilateral Migraine variant Variants of migraine, not elsewhere classified, without mention of intractable migraine without mention of status migrainosus Adjustment disorder with depressed mood [facility] Diagnosis Hyponatremia- Primary Hyposmolality and/or hyponatremia [facility] Diagnosis Injury of head, initial encounter- Primary LOC (loss of consciousness) ([facility]) Other alteration of consciousness [facility] Diagnosis Type 2 diabetes mellitus without complication, without long-term current use of insulin ([facility]) Mixed hyperlipidemia [facility] Diagnosis Abnormal weight loss- Primary Loss of weight Muscle mass Other musculoskeletal symptoms referable to limbs Intractable chronic post-traumatic headache Chronic post-traumatic headache Neuropathy Mononeuritis of unspecified site Situational depression Adjustment disorder with depressed mood Fatigue, unspecified type Myalgia Mylagia and myositis, unspecified [facility] Diagnosis Anemia, unspecified type- Primary Hyperglycemia Other abnormal glucose Uncontrolled type 2 diabetes mellitus with hyperglycemia ([facility]) Blood sugar increased Other abnormal glucose [facility] Diagnosis Iron deficiency anemia, unspecified iron deficiency anemia type- Primary [facility] Diagnosis Anemia, unspecified type [facility]* Diagnosis Abnormal weight loss- Primary Loss of weight [facility]* Diagnosis Panic disorder Panic disorder without agoraphobia Situational depression Adjustment disorder with depressed mood Adjustment disorder with depressed mood [facility] Diagnosis Bladder wall thickening- Primary Other specified disorders of bladder Abnormal weight loss Loss of weight [facility] Diagnosis Type 2 diabetes mellitus with diabetic neuropathy, without long-term current use of insulin ([facility])- Primary [facility] Diagnosis Bladder wall thickening- Primary Other specified disorders of bladder Benign non-nodular prostatic hyperplasia without lower urinary tract symptoms [facility] Diagnosis Dizziness- Primary Dizziness and giddiness Tremor Abnormal involuntary movements Hypotension, unspecified hypotension type Panic disorder Panic disorder without agoraphobia Situational depression Adjustment disorder with depressed mood Atypical chest pain Other chest pain Iron deficiency anemia, unspecified iron deficiency anemia type [facility] Diagnosis Foot injury, left, initial encounter- Primary [facility]* Diagnosis Syncope, unspecified syncope type- Primary Orthostatic hypotension [facility]* Diagnosis Type 2 diabetes mellitus with diabetic neuropathy, without long-term current use of insulin (HCC)- Primary Essential hypertension, benign [facility]* Diagnosis Iron deficiency anemia, unspecified iron deficiency anemia type- Primary Anemia, unspecified type [facility] Diagnosis Long-segment Santos's esophagus- Primary Hiatal hernia Diaphragmatic hernia without mention of obstruction or gangrene Diverticulosis Diverticulosis of colon (without mention of hemorrhage) Other gastritis without bleeding [facility] Diagnosis Rhus dermatitis- Primary Contact dermatitis and other eczema due to plants (except food) Syncope, unspecified syncope type- Primary Orthostatic hypotension [facility]* Diagnosis Syncope, unspecified syncope type- Primary Orthostatic hypotension documented [facility]* Diagnosis Medicare annual wellness visit, subsequent- [...] esophagitis Esophageal reflux [facility] Diagnosis Elevated PSA- Primary Elevated prostate specific antigen (PSA) Uncontrolled type 2 diabetes mellitus with hyperglycemia (HCC) [facility]* Diagnosis Type 2 diabetes mellitus without complication, without long-term current use of insulin (HCC) documented in this encounter [facility] note* Diagnosis Panic disorder- Primary Panic disorder without agoraphobia Syncope, unspecified syncope type- Primary Orthostatic hypotension documented in this encounter [facility] note* Diagnosis Rash- Primary Rash and other nonspecific skin eruption documented in this encounter [facility] note* Diagnosis Mouth sores- Primary Other and unspecified diseases of the oral soft tissues documented in this encounter [facility] note* Diagnosis Patient left without being seen- Primary Surgical or other procedure not carried out because of patient's decision SOB (shortness of breath) Shortness of breath documented in this encounter [facility] note* Diagnosis Mouth pain- Primary Other and unspecified diseases of the oral soft tissues [facility]* Diagnosis Abnormal weight loss Loss of weight documented in this encounter [facility] note* Diagnosis Abnormal weight loss Loss of weight documented in this encounter [facility] for referral (narrative)* Diagnostic Procedure Only (Routine) - Authorized Specialty Diagnoses / Procedures Referred By Carlos neff Referred To Contact US IMAGING Diagnoses Abnormal weight loss Procedures US ABD RT UPPER QUADRANT US ABDOMINAL REAL TIME W/IMAGE LIMITED Martha Boston PA-C [address] [place] [address] Us Imaging Referral ID Status Reason Start Date Expiration Date Visits Requested Visits Authorized [id number] Authorized Auto-Generat ed Referral 2 07/25/2023 1 1 [facility] for referral (narrative)* Outpatient Procedure (Routine) - Pending Review Specialty Diagnoses / Procedures Referred By Carlos neff Referred To Contact [facility] Diagnoses Anemia, unspecified type Procedures COLONOSCOPY DIAGNOSTIC COLONOSCOPY FLX DX W/COLLJ SPEC WHEN Thai Borges MD [address] [place] [address] [facility] [address] [place] [address] Referral ID Status Reason Start Date Expiration Date Visits Requested Visits Authorized [id number] Pending Review Auto-Generat ed Referral 2 06/27/2023 1 1 * Outpatient Procedure (Routine) - Pending Review Specialty Diagnoses / Procedures Referred By Carlos neff Referred To Contact [facility] Diagnoses Anemia, unspecified type Procedures EGD DIAGNOSTIC ESOPHAGOGASTRODUODENOSC OPY TRANSORAL DIAGNOSTIC Thai Santiago MD [address] [place] [address] [facility] [address] [place] [address] Referral ID Status Reason Start Date Expiration Date Visits Requested Visits Authorized [id number] Pending Review Auto-Generat ed Referral 2 06/27/2023 1 1 [facility] for referral (narrative)* Diagnostic Procedure Only (Urgent) - Closed Specialty Diagnoses / Procedures Referred By Carlos neff Referred To Contact XR IMAGING Diagnoses Foot injury, left, initial encounter Procedures XR FOOT GENERAL 3V AP/LAT/OBL LEFT RADEX FOOT COMPLETE MINIMUM 3 VIEWS Miladys Butt APRN.CNP [address] [place] [address] Xr Imaging Referral ID Status Reason Start Date Expiration Date V isits Requested Visits Authorized [id number] Closed Auto-Generate d Referral 09/23/2022 10/23/2023 1 1 [facility] for referral (narrative)* Outpatient Procedure (Routine) - Closed Specialty Diagnoses / Procedures Referred By Carlos neff Referred To Contact Diagnoses Anemia, unspecified type Procedures COLONOSCOPY DIAGNOSTIC COLONOSCOPY FLX DX W/COLLJ SPEC WHEN PFRMThai Burnett MD [address] [place] [address] Nell Gillis MD [address] [place] [address] Referral ID Status Reason Start Date Expiration Date V isits Requested Visits Authorized [id number] Closed Auto-Generate d Referral 10/14/2022 01/12/2023 1 1 * Outpatient Procedure (Routine) - Closed Specialty Diagnoses / Procedures [facility] Referred To Contact Diagnoses Anemia, unspecified type Procedures EGD DIAGNOSTIC ESOPHAGOGASTRODUODENOSCOPY TRANSORAL DIAGNOSTIC Thai Santiago MD [address] [facility] [place] [address] Nlel Gillis MD [address] [facility] [place] [address] Referral ID Status Reason Start Date Expiration Date V isits Requested Visits Authorized [id number] Closed Auto-Generate d Referral 10/14/2022 01/12/2023 1 1 [facility] for referral (narrative)* Diagnostic Procedure Only (Routine) - Closed Specialty Diagnoses / Procedures [facility] Referred To Contact CT IMAGING Diagnoses Abnormal weight loss Procedures CT ABD/PEL W IVCON CT ABD & PELVIS W/CONTRAST Martha Boston PA-C [address] [place] [address] [place] [address] Referral ID Status Reason Start Date Expiration Date V isits Requested Visits Authorized [id number] Closed Auto-Generate d Referral 07/09/2022 08/08/2022 2 2 * MRI/CT (Routine) - Closed Specialty Diagnoses / Procedures [facility] Referred To Contact CT IMAGING Diagnoses Abnormal weight loss Procedures CT CHEST W IVCON DIAGNOSTIC COMPUTED TOMOGRAPHY THORAX W/CONTRAST Martha Boston PA-C [address] [place] [address] [place] [address] Referral ID Status Reason Start Date Expiration Date V isits Requested Visits Authorized [id number] Closed Auto-Generate d Referral 07/09/2022 08/08/2022 1 1 [facility] for referral (narrative)* Diagnostic Procedure Only (Routine) - Closed Specialty Diagnoses / Procedures Referred By Contac t Referred To Contact US IMAGING Diagnoses Abnormal weight loss Procedures US ABD RT UPPER QUADRANT US ABDOMINAL REAL TIME W/IMAGE LIMITED Martha Boston PA-C [address] [place] [address] [place] [address] Referral ID Status Reason Start Date Expiration Date V isits Requested Visits Authorized [id number] Closed Auto-Generate d Referral 06/25/2022 07/25/2023 1 1 [facility] for visit Narrative* Outpatient Procedure (Routine) - Closed Specialty Diagnoses / Procedures Referred By Contac t Referred To Contact Diagnoses Anemia, unspecified type Procedures COLONOSCOPY DIAGNOSTIC COLONOSCOPY FLX DX W/COLLJ SPEC WHEN Thai Borges MD [address] [place] [address] Nell Gillis MD [address] [facility] [place] [address] Referral ID Status Reason Start Date Expiration Date V isits Requested Visits Authorized [id number] Closed Auto-Generate d Referral 10/14/2022 01/12/2023 1 1 [facility] for visit Narrative* Diagnostic Procedure Only (Routine) - Closed Specialty Diagnoses / Procedures Referred By Contac t Referred To Contact CT IMAGING Diagnoses Abnormal weight loss Procedures CT ABD/PEL W IVCON CT ABD & PELVIS W/CONTRAST Martha Boston PA-C [address] [place] [address] [place] [address] Referral ID Status Reason Start Date Expiration Date V isits Requested Visits Authorized [id number] Closed Auto-Generate d Referral 07/09/2022 08/08/2022 2 2 [facility] Summary Purpose Family History No Family History Records FoundNo Family History Records FoundNo Family History Records FoundNo Family History Records FoundNo Family History Records Found Advance Directives No Advanced Directives Records FoundDocuments on File Type Date Recorded 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 Advance Directive(s) Advance Directive(s) 02/20/2018 5:13 PM Advance Directive(s) 02/16/2018 12:54 PM Advance Directive(s) 11/07/2017 1:34 PM Advance Directive(s) 11/07/2017 4:10 PM Advance Directive(s) 11/07/2017 4:03 PM Advance Directive(s) 09/10/2017 6:38 AM Advance Directive(s) 11/20/2015 9:33 AM Documents on File Type Date Recorded 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 Advance Directive(s) Advance Directive(s) 02/20/2018 5:13 PM Advance Directive(s) 02/16/2018 12:54 PM Advance Directive(s) 11/07/2017 1:34 PM Advance Directive(s) 11/07/2017 4:10 PM Advance Directive(s) 11/07/2017 4:03 PM Advance Directive(s) 09/10/2017 6:38 AM Advance Directive(s) 11/20/2015 9:33 AM Documents on File Type Date Recorded 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 Advance Directive(s) 11/07/2017 4:03 PM Documents on File Type Date Recorded 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 Advance Directive(s) 11/07/2017 4:03 PM Reason for Referral Specialty Diagnoses / Procedures Referred By Carlos t Referred To Contact Neurology Diagnoses Orthostatic hypotension Procedures CONSULT TO NEUROLOGY OFFICE/OUTPATIENT NEW HIGH MDM 60-74 MINUTES Jenna Jim APRN.SHIPYARD HELPER [address] [place] [id number] Referral ID Status Reason Start Date Expiration Date Visits Requested Visits Authorized [id number] Pending Review PCP Requested Referral 02/22/2022 02/22/2023 1 1 Specialty Diagnoses / Procedures Referred By Carlos neff Referred To Contact CT IMAGING Diagnoses Injury of head, initial encounter Procedures CT BRAIN WO IVCON CT HEAD/BRAIN W/O CONTRAST MATERIAL Jenna Jim APRN.SHIPYARD HELPER [id number] Imaging Referral ID Status Reason Start Date Expiration Date V isits Requested Visits Authorized [id number] Closed Auto-Generate d Referral 03/19/2022 04/18/2023 1 1 Specialty Diagnoses / Procedures Referred By Contac t Referred To Contact General Surgery Diagnoses Anemia, unspecified type Procedures CONSULT TO GENERAL SURGERY OFFICE/OUTPATIENT NEW HIGH MDM 60-74 MINUTES Martha Boston PA-C [address] [place] [address] Referral ID Status Reason Start Date Expiration Date Visits Requested Visits Authorized [id number] Pending Review PCP Requested Referral 06/26/2023 1 1 Specialty Diagnoses / Procedures Referred By Contac t Referred To Contact CT IMAGING Diagnoses Abnormal weight loss Procedures CT ABD/PEL W IVCON CT ABD & PELVIS W/CONTRAST Martha Boston PA-C [address] [place] [address] Ct Imaging Referral ID Status Reason Start Date Expiration Date Visits Requested Visits Authorized [id number] Pending Review Auto-Generat ed Referral 07/02/2022 08/01/2023 1 1 Specialty Diagnoses / Procedures Referred By Contac t Referred To Contact CT IMAGING Diagnoses Abnormal weight loss Procedures CT CHEST W IVCON DIAGNOSTIC COMPUTED TOMOGRAPHY THORAX W/CONTRAST Martha Boston PA-C [address] [place] [address] Ct Imaging Referral ID Status Reason Start Date Expiration Date Visits Requested Visits Authorized [id number] Pending Review Auto-Generat ed Referral 07/02/2022 08/01/2023 1 1 Specialty Diagnoses / Procedures Referred By Contac t Referred To Contact Urology Diagnoses Bladder wall thickening Abnormal weight loss Procedures CONSULT TO UROLOGY OFFICE/OUTPATIENT NEW HIGH MDM 60-74 MINUTES Martha Boston PA-C [address] [place] [address] Referral ID Status Reason Start Date Expiration Date Visits Requested Visits Authorized [id number] Pending Review PCP Requested Referral 07/10/2022 07/10/2023 1 1 Specialty Diagnoses / Procedures Referred By Contac t Referred To Contact Neurology Diagnoses Type 2 diabetes mellitus with diabetic neuropathy, without long-term current use of insulin (HCC) Procedures CONSULT TO NEUROLOGY Gamal Mathis APRN.CNP [address] [place] [address] Lemuel Troy Jr., MD [address] [place] [address] Referral ID Status Reason Start Date Expiration Date Visits Requested Visits Authorized [id number] Ref Not Required PCP Requested Referral 2 07/30/2023 1 1 Specialty Diagnoses / Procedures Referred By Contac t Referred To Contact Ophthalmology Diagnoses Type 2 diabetes mellitus with diabetic neuropathy, without long-term current use of insulin (HCC) Procedures CONSULT TO OPHTHALMOLOGY OFFICE/OUTPATIENT [facility] 60-74 MINUTES Martha Boston PA-C [address] [place] [address] Referral ID Status Reason Start Date Expiration Date Visits Requested Visits Authorized [id number] Pending Review PCP Requested Referral 11/28/2022 11/28/2023 [...] Date Dose Rate Site benzocaine 20% 4 Ten Sleep (TOPEX) 4 [facility] Sleep, TOPICAL, ONCE, 1 dose, On Fri10/14/22 at [...] DATE CREATED AUTHOR AUTHOR'S ORGANIZ ATION 04/06/2022 [facility] nt DATE CREATED AUTHOR AUTHOR'S ORGANIZ ATION 08/25/2022 [facility] DATE CREATED AUTHOR AUTHOR'S ORGANIZ ATION 10/20/[address] [facility] DATE CREATED AUTHOR AUTHOR'S ORGANIZ ATION 09/04/2023 [facility] Source Comments (unrecognize d section and content) In the event this informatio n is protected by the Federal Confidentiality of Alcohol and Drug Abuse Patient Records regulations: The Federal rules restrict any use of the information to criminally investigate or prosecute any alcohol or drug abuse patient.[facility] the event this information is protected by the Federal Confidentiality of Alcohol and Drug Abuse Patient Records regulations: The Federal rules restrict any use of the information to criminally investigate or prosecute any alcohol or drug abuse patient.[facility] the event this information is protected by the Federal Confidentiality of Alcohol and Drug Abuse Patient Records regulations: The Federal rules restrict any use of the information to criminally investigate or prosecute any alcohol or drug abuse patient.[facility] the event this information is protected by the Federal Confidentiality of Alcohol and Drug Abuse Patient Records regulations: The Federal rules restrict any use of the information to criminally investigate or prosecute any alcohol or drug abuse patient.[facility] the event this information is protected by the Federal Confidentiality of Alcohol and Drug Abuse Patient Records regulations: The Federal rules restrict any use of the information to criminally investigate or prosecute any alcohol or drug abuse patient.[facility] the event this information is protected by the Federal Confidentiality of Alcohol and Drug Abuse Patient Records regulations: The Federal rules restrict any use of the information to criminally investigate or prosecute any alcohol or drug abuse patient.[facility] the event this information is protected by the Federal Confidentiality of Alcohol and Drug Abuse Patient Records regulations: The Federal rules restrict any use of the information to criminally investigate or prosecute any alcohol or drug abuse patient.[facility] the event this information is protected by the Federal Confidentiality of Alcohol and Drug Abuse Patient Records regulations: The Federal rules restrict any use of the information to criminally investigate or prosecute any alcohol or drug abuse patient.[facility] the event this information is protected by the Federal Confidentiality of Alcohol and Drug Abuse Patient Records regulations: The Federal rules restrict any use of the information to criminally investigate or prosecute any alcohol or drug abuse patient.[facility] the event this information is protected by the Federal Confidentiality of Alcohol and Drug Abuse Patient Records regulations: The Federal rules restrict any use of the information to criminally investigate or prosecute any alcohol or drug abuse patient.[facility] the event this information is protected by the Federal Confidentiality of Alcohol and Drug Abuse Patient Records regulations: The Federal rules restrict any use of the information to criminally investigate or prosecute any alcohol or drug abuse patient.[facility] the event this information is protected by the Federal Confidentiality of Alcohol and Drug Abuse Patient Records regulations: The Federal rules restrict any use of the information to criminally investigate or prosecute any alcohol or drug abuse patient.[facility] the event this information is protected by the Federal Confidentiality of Alcohol and Drug Abuse Patient Records regulations: The Federal rules restrict any use of the information to criminally investigate or prosecute any alcohol or drug abuse patient.[facility] the event this information is protected by the Federal Confidentiality of Alcohol and Drug Abuse Patient Records regulations: The Federal rules restrict any use of the information to criminally investigate or prosecute any alcohol or drug abuse patient.[facility] the event this information is protected by the Federal Confidentiality of Alcohol and Drug Abuse Patient Records regulations: The Federal rules restrict any use of the information to criminally investigate or prosecute any alcohol or drug abuse patient.[facility] the event this information is protected by the Federal Confidentiality of Alcohol and Drug Abuse Patient Records regulations: The Federal rules restrict any use of the information to criminally investigate or prosecute any alcohol or drug abuse patient.[facility] the event this information is protected by the Federal Confidentiality of Alcohol and Drug Abuse Patient Records regulations: The Federal rules restrict any use of the information to criminally investigate or prosecute any alcohol or drug abuse patient.[facility] the event this information is protected by the Federal Confidentiality of Alcohol and Drug Abuse Patient Records regulations: The Federal rules restrict any use of the information to criminally investigate or prosecute any alcohol or drug abuse patient.[facility] the event this information is protected by the Federal Confidentiality of Alcohol and Drug Abuse Patient Records regulations: The Federal rules restrict any use of the information to criminally investigate or prosecute any alcohol or drug abuse patient.[facility] the event this information is protected by the Federal Confidentiality of Alcohol and Drug Abuse Patient Records regulations: The Federal rules restrict any use of the information to criminally investigate or prosecute any alcohol or drug abuse patient.[facility] HospitalIn the event this information is protected by the Federal Confidentiality of Alcohol and Drug Abuse Patient Records regulations: The Federal rules restrict any use of the information to criminally investigate or prosecute any alcohol or drug abuse patient.[facility] HospitalIn the event this information is protected by the Federal Confidentiality of Alcohol and Drug Abuse Patient Records regulations: The Federal rules restrict any use of the information to criminally investigate or prosecute any alcohol or drug abuse patient.[facility] HospitalIn the event this information is protected by the Federal Confidentiality of Alcohol and Drug Abuse Patient Records regulations: The Federal rules restrict any use of the information to criminally investigate or prosecute any alcohol or drug abuse patient.[facility] HospitalIn the event this information is protected by the Federal Confidentiality of Alcohol and Drug Abuse Patient Records regulations: The Federal rules restrict any use of the information to criminally investigate or prosecute any alcohol or drug abuse patient.[facility] HospitalIn the event this information is protected by the Federal Confidentiality of Alcohol and Drug Abuse Patient Records regulations: The Federal rules restrict any use of the information to criminally investigate or prosecute any alcohol or drug abuse patient.[facility] HospitalIn the event this information is protected by the Federal Confidentiality of Alcohol and Drug Abuse Patient Records regulations: The Federal rules restrict any use of the information to criminally investigate or prosecute any alcohol or drug abuse patient.[facility] HospitalIn the event this information is protected by the Federal Confidentiality of Alcohol and Drug Abuse Patient Records regulations: The Federal rules restrict any use of the information to criminally investigate or prosecute any alcohol or drug abuse patient.[facility] HospitalIn the event this information is protected by the Federal Confidentiality of Alcohol and Drug Abuse Patient Records regulations: The Federal rules restrict any use of the information to criminally investigate or prosecute any alcohol or drug abuse patient.[facility] HospitalIn the event this information is protected by the Federal Confidentiality of Alcohol and Drug Abuse Patient Records regulations: The Federal rules restrict any use of the information to criminally investigate or prosecute any alcohol or drug abuse patient.[facility] HospitalIn the event this information is protected by the Federal Confidentiality of Alcohol and Drug Abuse Patient Records regulations: The Federal rules restrict any use of the information to criminally investigate or prosecute any alcohol or drug abuse patient.[facility] HospitalIn the event this information is protected by the Federal Confidentiality of Alcohol and Drug Abuse Patient Records regulations: The Federal rules restrict any use of the information to criminally investigate or prosecute any alcohol or drug abuse patient.[facility] HospitalIn the event this information is protected by the Federal Confidentiality of Alcohol and Drug Abuse Patient Records regulations: The Federal rules restrict any use of the information to criminally investigate or prosecute any alcohol or drug abuse patient.[facility] HospitalIn the event this information is protected by the Federal Confidentiality of Alcohol and Drug Abuse Patient Records regulations: The Federal rules restrict any use of the information to criminally investigate or prosecute any alcohol or drug abuse patient.[facility] HospitalIn the event this information is protected by the Federal Confidentiality of Alcohol and Drug Abuse Patient Records regulations: The Federal rules restrict any use of the information to criminally investigate or prosecute any alcohol or drug abuse patient.[facility] HospitalIn the event this information is protected by the Federal Confidentiality of Alcohol and Drug Abuse Patient Records regulations: The Federal rules restrict any use of the information to criminally investigate or prosecute any alcohol or drug abuse patient.[facility] HospitalIn the event this information is protected by the Federal Confidentiality of Alcohol and Drug Abuse Patient Records regulations: The Federal rules restrict any use of the information to criminally investigate or prosecute any alcohol or drug abuse patient.[facility] the event this information is protected by the Federal Confidentiality of Alcohol and Drug Abuse Patient Records regulations: The Federal rules restrict any use of the information to criminally investigate or prosecute any alcohol or drug abuse patient.[facility] HospitalIn the event this information is protected by the Federal Confidentiality of Alcohol and Drug Abuse Patient Records regulations: The Federal rules restrict any use of the information to criminally investigate or prosecute any alcohol or drug abuse patient.[facility] HospitalIn the event this information is protected by the Federal Confidentiality of Alcohol and Drug Abuse Patient Records regulations: The Federal rules restrict any use of the information to criminally investigate or prosecute any alcohol or drug abuse patient.[facility] HospitalIn the event this information is protected by the Federal Confidentiality of Alcohol and Drug Abuse Patient Records regulations: The Federal rules restrict any use of the information to criminally investigate or prosecute any alcohol or drug abuse patient.[facility] HospitalIn the event this information is protected by the Federal Confidentiality of Alcohol and Drug Abuse Patient Records regulations: The Federal rules restrict any use of the information to criminally investigate or prosecute any alcohol or drug abuse patient.[facility] HospitalIn the event this information is protected by the Federal Confidentiality of Alcohol and Drug Abuse Patient Records regulations: The Federal rules restrict any use of the information to criminally investigate or prosecute any alcohol or drug abuse patient.[facility] HospitalIn the event this information is protected by the Federal Confidentiality of Alcohol and Drug Abuse Patient Records regulations: The Federal rules restrict any use of the information to criminally investigate or prosecute any alcohol or drug abuse patient.[facility] HospitalIn the event this information is protected by the Federal Confidentiality of Alcohol and Drug Abuse Patient Records regulations: The Federal rules restrict any use of the information to criminally investigate or prosecute any alcohol or drug abuse patient.[facility] HospitalIn the event this information is protected by the Federal Confidentiality of Alcohol and Drug Abuse Patient Records regulations: The Federal rules restrict any use of the information to criminally investigate or prosecute any alcohol or drug abuse patient.[facility] HospitalIn the event this information is protected by the Federal Confidentiality of Alcohol and Drug Abuse Patient Records regulations: The Federal rules restrict any use of the information to criminally investigate or prosecute any alcohol or drug abuse patient.[facility] HospitalIn the event this information is protected by the Federal Confidentiality of Alcohol and Drug Abuse Patient Records regulations: The Federal rules restrict any use of the information to criminally investigate or prosecute any alcohol or drug abuse patient.[facility] HospitalIn the event this information is protected by the Federal Confidentiality of Alcohol and Drug Abuse Patient Records regulations: The Federal rules restrict any use of the information to criminally investigate or prosecute any alcohol or drug abuse patient.[facility] HospitalIn the event this information is protected by the Federal Confidentiality of Alcohol and Drug Abuse Patient Records regulations: The Federal rules restrict any use of the information to criminally investigate or prosecute any alcohol or drug abuse patient.[facility] HospitalIn the event this information is protected by the Federal Confidentiality of Alcohol and Drug Abuse Patient Records regulations: The Federal rules restrict any use of the information to criminally investigate or prosecute any alcohol or drug abuse patient.[facility] HospitalIn the event this information is protected by the Federal Confidentiality of Alcohol and Drug Abuse Patient Records regulations: The Federal rules restrict any use of the information to criminally investigate or prosecute any alcohol or drug abuse patient.[facility] HospitalIn the event this information is protected by the Federal Confidentiality of Alcohol and Drug Abuse Patient Records regulations: The Federal rules restrict any use of the information to criminally investigate or prosecute any alcohol or drug abuse patient.[facility] HospitalIn the event this information is protected by the Federal Confidentiality of Alcohol and Drug Abuse Patient Records regulations: The Federal rules restrict any use of the information to criminally investigate or prosecute any alcohol or drug abuse patient.[facility] HospitalIn the event this information is protected by the Federal Confidentiality of Alcohol and Drug Abuse Patient Records regulations: The Federal rules restrict any use of the information to criminally investigate or prosecute any alcohol or drug abuse patient.[facility] HospitalIn the event this information is protected by the Federal Confidentiality of Alcohol and Drug Abuse Patient Records regulations: The Federal rules restrict any use of the information to criminally investigate or prosecute any alcohol or drug abuse patient.[facility] HospitalIn the event this information is protected by the Federal Confidentiality of Alcohol and Drug Abuse Patient Records regulations: The Federal rules restrict any use of the information to criminally investigate or prosecute any alcohol or drug abuse patient.[facility] HospitalIn the event this information is protected by the Federal Confidentiality of Alcohol and Drug Abuse Patient Records regulations: The Federal rules restrict any use of the information to criminally investigate or prosecute any alcohol or drug abuse patient.[facility] HospitalIn the event this information is protected by the Federal Confidentiality of Alcohol and Drug Abuse Patient Records regulations: The Federal rules restrict any use of the information to criminally investigate or prosecute any alcohol or drug abuse patient.[facility] HospitalIn the event this information is protected by the Federal Confidentiality of Alcohol and Drug Abuse Patient Records regulations: The Federal rules restrict any use of the information to criminally investigate or prosecute any alcohol or drug abuse patient.[facility] HospitalIn the event this information is protected by the Federal Confidentiality of Alcohol and Drug Abuse Patient Records regulations: The Federal rules restrict any use of the information to criminally investigate or prosecute any alcohol or drug abuse patient.[facility] HospitalIn the event this information is protected by the Federal Confidentiality of Alcohol and Drug Abuse Patient Records regulations: The Federal rules restrict any use of the information to criminally investigate or prosecute any alcohol or drug abuse patient.[facility] HospitalIn the event this information is protected by the Federal Confidentiality of Alcohol and Drug Abuse Patient Records regulations: The Federal rules restrict any use of the information to criminally investigate or prosecute any alcohol or drug abuse patient.[facility] HospitalIn the event this information is protected by the Federal Confidentiality of Alcohol and Drug Abuse Patient Records regulations: The Federal rules restrict any use of the information to criminally investigate or prosecute any alcohol or drug abuse patient.[facility] HospitalIn the event this information is protected by the Federal Confidentiality of Alcohol and Drug Abuse Patient Records regulations: The Federal rules restrict any use of the information to criminally investigate or prosecute any alcohol or drug abuse patient.[facility] HospitalIn the event this information is protected by the Federal Confidentiality of Alcohol and Drug Abuse Patient Records regulations: The Federal rules restrict any use of the information to criminally investigate or prosecute any alcohol or drug abuse patient.[facility] HospitalIn the event this information is protected by the Federal Confidentiality of Alcohol and Drug Abuse Patient Records regulations: The Federal rules restrict any use of the information to criminally investigate or prosecute any alcohol or drug abuse patient.[facility] HospitalIn the event this information is protected by the Federal Confidentiality of Alcohol and Drug Abuse Patient Records regulations: The Federal rules restrict any use of the information to criminally investigate or prosecute any alcohol or drug abuse patient.[facility] HospitalIn the event this information is protected by the Federal Confidentiality of Alcohol and Drug Abuse Patient Records regulations: The Federal rules restrict any use of the information to criminally investigate or prosecute any alcohol or drug abuse patient.[facility] HospitalIn the event this information is protected by the Federal Confidentiality of Alcohol and Drug Abuse Patient Records regulations: The Federal rules restrict any use of the information to criminally investigate or prosecute any alcohol or drug abuse patient.[facility] HospitalIn the event this information is protected by the Federal Confidentiality of Alcohol and Drug Abuse Patient Records regulations: The Federal rules restrict any use of the information to criminally investigate or prosecute any alcohol or drug abuse patient.[facility] HospitalIn the event this information is protected by the Federal Confidentiality of Alcohol and Drug Abuse Patient Records regulations: The Federal rules restrict any use of the information to criminally investigate or prosecute any alcohol or drug abuse patient.[facility] HospitalIn the event this information is protected by the Federal Confidentiality of Alcohol and Drug Abuse Patient Records regulations: The Federal rules restrict any use of the information to criminally investigate or prosecute any alcohol or drug abuse patient.[facility] HospitalIn the event this information is protected by the Federal Confidentiality of Alcohol and Drug Abuse Patient Records regulations: The Federal rules restrict any use of the information to criminally investigate or prosecute any alcohol or drug abuse patient.[facility] HospitalIn the event this information is protected by the Federal Confidentiality of Alcohol and Drug Abuse Patient Records regulations: The Federal rules restrict any use of the information to criminally investigate or prosecute any alcohol or drug abuse patient.[facility] HospitalIn the event this information is protected by the Federal Confidentiality of Alcohol and Drug Abuse Patient Records regulations: The Federal rules restrict any use of the information to criminally investigate or prosecute any alcohol or drug abuse patient.[facility] HospitalIn the event this information is protected by the Federal Confidentiality of Alcohol and Drug Abuse Patient Records regulations: The Federal rules restrict any use of the information to criminally investigate or prosecute any alcohol or drug abuse patient.[facility] HospitalIn the event this information is protected by the Federal Confidentiality of Alcohol and Drug Abuse Patient Records regulations: The Federal rules restrict any use of the information to criminally investigate or prosecute any alcohol or drug abuse patient.[facility] HospitalIn the event this information is protected by the Federal Confidentiality of Alcohol and Drug Abuse Patient Records regulations: The Federal rules restrict any use of the information to criminally investigate or prosecute any alcohol or drug abuse patient.[facility] HospitalIn the event this information is protected by the Federal Confidentiality of Alcohol and Drug Abuse Patient Records regulations: The Federal rules restrict any use of the information to criminally investigate or prosecute any alcohol or drug abuse patient.[facility] HospitalIn the event this information is protected by the Federal Confidentiality of Alcohol and Drug Abuse Patient Records regulations: The Federal rules restrict any use of the information to criminally investigate or prosecute any alcohol or drug abuse patient.[facility] HospitalIn the event this information is protected by the Federal Confidentiality of Alcohol and Drug Abuse Patient Records regulations: The Federal rules restrict any use of the information to criminally investigate or prosecute any alcohol or drug abuse patient.[facility] HospitalIn the event this information is protected by the Federal Confidentiality of Alcohol and Drug Abuse Patient Records regulations: The Federal rules restrict any use of the information to criminally investigate or prosecute any alcohol or drug abuse patient.[facility] Reason for Visit (unrecogniz ed section and [...] CT HEAD/BRAIN W/O CONTRAST MATERIAL Jenna Jim, COLLETTE.SHIPYARD HELPER [address] [place] [address] Ct Imaging Referral ID Status Reason Start Date Expiration Date V isits Requested Visits Authorized [id number] Closed Auto-Generat ed Referral Patient Cleared - [...] Is also having head pain Reason Comments [facility] Reason Comments Results Reason Comments Consult Colonoscopy, anemia, no prior colonoscopy Specialty Diagnoses / Procedures Referred By Carlos neff Referred To Contact General Surgery Diagnoses Anemia, unspecified type Procedures CONSULT TO GENERAL SURGERY OFFICE/OUTPATIENT NEW HIGH MDM 60-74 MINUTES Martha Boston PA-C [address] [place] [address] Referral ID Status Reason Start Date Expiration Date Visits Requested Visits Authorized [id number] Pending Review PCP Requested Referral 2 06/26/2023 [...] NEW HIGH MDM 60-74 MINUTES Jenna Jim, ESTIMATION MANAGER.SHIPYARD HELPER [address] [place] [address] Referral ID Status Reason Start Date Expiration Date Visits Requested Visits Authorized [id number] Pending Review PCP Requested Referral 02/22/2022 02/22/2023 [...] & PELVIS W/CONTRAST Martha Boston PA-C [address] [place] [address] [place] [address] Referral ID Status Reason Start Date Expiration Date V isits Requested Visits Authorized [id number] Closed Auto-Generate d Referral 07/09/2022 08/08/2022 2 2 Reason Comments Radiology US Specialty Diagnoses / Procedures Referred By Carlos t Referred To Contact US IMAGING Diagnoses Abnormal weight loss Procedures US ABD RT UPPER QUADRANT US ABDOMINAL REAL TIME W/IMAGE LIMITED Martha Boston PA-C [address] [facility] [place] [address] [place] [address] Referral ID Status Reason Start Date Expiration Date V isits Requested Visits Authorized [id number] Closed Auto-Generate d Referral 06/25/2022 07/25/2023 1 1 Care Teams (unrecognized sec tion and content) Insulation Helper Relationship Specialty Start Date End Date Nadir Grady MD [address] [place] [address] PCP - General Family Practice 08/04/15 [facility] [address] [place] [address] Pharmacist Pharmacy 10/20/20 [facility] [address] [place] [address] Pharmacist Pharmacy 03/15/21 Insulation Helper Relationship Specialty Start Date End Date Nadir Grady MD [address] [place] [address] PCP - General Family Practice 08/04/15 [facility] [address] [place] [address] Pharmacist Pharmacy 10/20/20 [facility] [address] [place] [address] Pharmacist Pharmacy 03/15/21 Insulation Helper Relationship Specialty Start Date End Date Nadir Grady MD [address] [place] [address] PCP - General Family Practice 08/04/15 [facility] [address] [place] [address] Pharmacist Pharmacy 10/20/20 [facility] [address] [facility] [place] [address] Pharmacist Pharmacy 03/15/21 Insulation Helper Relationship Specialty Start Date End Date Nadir Grady MD [address] [facility] [place] [address] PCP - General Family Practice 08/04/15 [facility] [address] [facility] [place] [address] Pharmacist Pharmacy 10/20/20 [place], [facility] [address] [facility] [place] [address] Pharmacist Pharmacy 03/15/21 Insulation Helper Relationship Specialty Start Date End Date Nadir Grady MD [address] [facility] [place] [address] PCP - General Family Practice 08/04/15 [facility] [address] [facility] [place] [address] Pharmacist Pharmacy 10/20/20 [place] [facility] [address] [facility] [place] [address] Pharmacist Pharmacy 03/15/21 Yolanda Dean (Camelia) [address] [place] [address] Referring Pulmonary and Critical Care Medicine 02/07/22 Insulation Helper Relationship Specialty Start Date End Date Nadir Grady MD [address] [facility] [place] [address] PCP - General Family Practice 08/04/15 [facility] [address] [place] [address] Pharmacist Pharmacy 10/20/20 [facility] [address] [place] [address] Pharmacist Pharmacy 03/15/21 Yolanda Dean (Pa) [address] [place] [address] Referring Pulmonary and Critical Care Medicine 02/07/22 Insulation Helper Relationship Specialty Start Date End Date Nadir Grady MD [address] [facility] [place] [address] PCP - General Family Practice 08/04/15 [facility] [address] [facility] [place] [address] Pharmacist Pharmacy 10/20/20 [facility] [address] [facility] [place] [address] Pharmacist Pharmacy 03/15/21 Yolanda Dean (Pa) [address] [place] [address] Referring Pulmonary and Critical Care Medicine 02/07/22 Insulation Helper Relationship Specialty Start Date End Date Nadir Grady MD [address] [facility] [place] [address] PCP - General Family Practice 08/04/15 [facility] [address] [facility] [place] [address] Pharmacist Pharmacy 10/20/20 [facility] [address] [facility] [place] [address] Pharmacist Pharmacy 03/15/21 Yolanda Dean (Pa) [address] [facility] [place] [address] Referring Pulmonary and Critical Care Medicine 02/07/22 Insulation Helper Relationship Specialty Start Date End Date Nadir Grady MD [address] [facility] [place] [address] PCP - General Family Practice 08/04/15 [facility] [address] [facility] [place] [address] Pharmacist Pharmacy 10/20/20 [place] [facility] [address] [facility] [place] [address] Pharmacist Pharmacy 03/15/21 Yolanda Dean (Pa) [address] [place] [address] Referring Pulmonary and Critical Care Medicine 02/07/22 Insulation Helper Relationship Specialty Start Date End Date Nadir Grady MD [address] [facility] [place] [address] PCP - General Family Practice 08/04/15 [facility] [address] [facility] [place] [address] Pharmacist Pharmacy 10/20/20 [facility] [address] [facility] [place] [address] Pharmacist Pharmacy 03/15/21 Yolanda Dean (Pa) [address] [facility] [place] [place] [address] Referring Pulmonary and Critical Care Medicine 02/07/22 Insulation Helper Relationship Specialty Start Date End Date Nadir Grady MD [address] [facility] [place] [address] PCP - General Family Practice 08/04/15 [facility] [address] [facility] [place] [address] Pharmacist Pharmacy 10/20/20 FelizKaren florFreeman [facility] [address] [facility] [place] [address] Pharmacist Pharmacy 03/15/21 Yolanda Dean (Pa) [address] [place] [address] Referring Pulmonary and Critical Care Medicine 02/07/22 Insulation Helper Relationship Specialty Start Date End Date Nadir Grady MD [address] [facility] [place] [address] PCP - General Family Practice 08/04/15 [facility] [address] [facility] [place] [address] Pharmacist Pharmacy 10/20/20 Karen PiperFre[facility] [address] [facility] [place] [address] Pharmacist Pharmacy 03/15/21 Yolanda Dean (Pa) [address] [place] [address] Referring Pulmonary and Critical Care Medicine 02/07/22 Insulation Helper Relationship Specialty Start Date End Date Nadir Grady MD [address] [facility] [place] [address] PCP - General Family Practice 08/04/15 [facility] [address] [facility] [place] [address] Pharmacist Pharmacy 10/20/20 [facility] [address] [facility] [place] [address] Pharmacist Pharmacy 03/15/21 Yolanda Dean (Pa) [address] [facility] [place] [address] Referring Pulmonary and Critical Care Medicine 02/07/22 Insulation Helper Relationship Specialty Start Date End Date Nadir Grady MD [address] [facility] [place] [address] PCP - General Family Practice 08/04/15 [facility] vega[facility] [address] [facility] [place] [address] Pharmacist Pharmacy 10/20/20 [facility]Fre[facility] [address] [facility] [place] [address] Pharmacist Pharmacy 03/15/21 Yolanda Dean (Pa) [address] [facility] [place] [address] Referring Pulmonary and Critical Care Medicine 02/07/22 Insulation Helper Relationship Specialty Start Date End Date Nadir Grady MD [address] [facility] [place] [address] PCP - General Family Practice 08/04/15 Sharri BriankatiFreeman [facility] [address] [facility] [place] [address] Pharmacist Pharmacy 10/20/20 [facility]KarenFre[facility] [address] [facility] [place] [address] Pharmacist Pharmacy 03/15/21 Yolanda Dean (Pa) [address] [place] [address] Referring Pulmonary and Critical Care Medicine 02/07/22 Insulation Helper Relationship Specialty Start Date End Date Nadir Grady MD [address] [facility] [place] [address] PCP - General Family Practice 08/04/15 Arnaud HarrellFreeman Cancer Institute [address] [facility] [place] [address] Pharmacist Pharmacy 10/20/20 Karen PiperFre[facility] [address] [facility] [place] [address] Pharmacist Pharmacy 03/15/21 Yolanda Dean (Pa) [address] [place] [address] Referring Pulmonary and Critical Care Medicine 02/07/22 Insulation Helper Relationship Specialty Start Date End Date Nadir Grady MD [address] [facility] [place] [address] PCP - General Family Practice 08/04/15 Arnaud Harrell, [facility]ly [facility] [address] [facility] [place] [address] Pharmacist Pharmacy 10/20/20 Karen [facility]Fre[facility] [address] [facility] [place] [address] Pharmacist Pharmacy 03/15/21 Yolanda Dean (Pa) [address] [place] [address] Referring Pulmonary and Critical Care Medicine 02/07/22 Insulation Helper Relationship Specialty Start Date End Date Nadir Grady MD [address] [facility] [place] [address] PCP - General Family Practice 08/04/15 [facility] vegaFre[facility] [address] [facility] [place] [address] Pharmacist Pharmacy 10/20/20 Karen PiperFre[facility] [address] [facility] [place] [address] Pharmacist Pharmacy 03/15/21 Yolanda Dean (Pa) [address] [place] [address] Referring Pulmonary and Critical Care Medicine 02/07/22 Insulation Helper Relationship Specialty Start Date End Date Nadir Grady MD [address] [facility] [place] [address] PCP - General Family Practice 08/04/15 ToddArnaud vegaFreeman [facility] [address] [facility] [place] [address] Pharmacist Pharmacy 10/20/20 Karen [facility]perFre[facility] [address] [facility] [place] [address] Pharmacist Pharmacy 03/15/21 Yolanda Dean (Pa) [address] [place] [address] Referring Pulmonary and Critical Care Medicine 02/07/22 Insulation Helper Relationship Specialty Start Date End Date Nadir Grady MD [address] [facility] [place] [address] PCP - General Family Medicine 08/04/15 ToddArnaud vega, [facility] [address] [facility] [place] [address] Pharmacist Pharmacy 10/20/20 Karen [facility]perFre[facility] [address] [facility] [place] [address] Pharmacist Pharmacy 03/15/21 Yolanda Dean (Pa) [address] [facility] [place] [address] Referring Pulmonary and Critical Care Medicine 02/07/22 Insulation Helper Relationship Specialty Start Date End Date Nadir Grady MD [address] [facility] [place] [address] PCP - General Family Medicine 08/04/15 Arnaud Harrell, [facility] [address] [facility] [place] [address] Pharmacist Pharmacy 10/20/20 Karen [facility]perFre[facility] [address] [facility] [place] [address] Pharmacist Pharmacy 03/15/21 Yolanda Dean (Pa) [address] [facility] [place] [address] Referring Pulmonary and Critical Care Medicine 02/07/22 Insulation Helper Relationship Specialty Start Date End Date Nadir Grady MD [address] [facility] [place] [address] PCP - General Family Medicine 08/04/15 Arnaud Harrell, [facility] [address] [facility] [place] [address] Pharmacist Pharmacy 10/20/20 Feliz Karen, [facility] [address] [facility] [place] [address] Pharmacist Pharmacy 03/15/21 Yolanda Dean (Pa) [address] [place] [facility] [place] [address] Referring Pulmonary and Critical Care Medicine 02/07/22 Insulation Helper Relationship Specialty Start Date End Date Nadir Grady MD [address] [facility] [place] [address] PCP - General Family Medicine 08/04/15 [facility] vegaFre[facility] [address] [facility] [place] [address] Pharmacist Pharmacy 10/20/20 Feliz KarenFre[facility] [address] [facility] [place] [address] Pharmacist Pharmacy 03/15/21 Yolanda Dean (Pa) [address] [place] [address] Referring Pulmonary and Critical Care Medicine 02/07/22 Insulation Helper Relationship Specialty Start Date End Date Nadir Grady MD [address] [facility] [place] [address] PCP - General Family Medicine 08/04/15 Arnaud HarrellFreeman [facility] [address] [facility] [place] [address] Pharmacist Pharmacy 10/20/20 Karen PiperFre[facility] [address] [facility] [place] [address] Pharmacist Pharmacy 03/15/21 Yolanda Dean (Pa) [address] [place] [address] Referring Pulmonary and Critical Care Medicine 02/07/22 Insulation Helper Relationship Specialty Start Date End Date Nadir Grady MD [address] [facility] [place] [address] PCP - General Family Medicine 08/04/15 ToddArnaud vegaFreeman [facility] [address] [facility] [place] [address] Pharmacist Pharmacy 10/20/20 Karen PiperFre[facility] [address] [place] [address] Pharmacist Pharmacy 03/15/21 Yolanda Dean (Pa) [address] [facility] [place] [address] Referring Pulmonary and Critical Care Medicine 02/07/22 Insulation Helper Relationship Specialty Start Date End Date Nadir Grady MD [address] [facility] [place] [address] PCP - General Family Medicine 08/04/15 Sharri BriankatiFreeman [facility] [address] [facility] [place] [address] Pharmacist Pharmacy 10/20/20 Karen PiperFre[facility] [address] [facility] [place] [address] Pharmacist Pharmacy 03/15/21 Yolanda Dean (Pa) [address] [facility] [place] [address] Referring Pulmonary and Critical Care Medicine 02/07/22 Insulation Helper Relationship Specialty Start Date End Date Nadir Grady MD [address] [facility] [place] [address] PCP - General Family Medicine 08/04/15 Sharri Briankati, [facility] [address] [facility] [place] [address] Pharmacist Pharmacy 10/20/20 Karen [facility]Fre[facility] [address] [facility] [place] [address] Pharmacist Pharmacy 03/15/21 Yolanda Dean (Pa) [address] [place] [address] Referring Pulmonary and Critical Care Medicine 02/07/22 Insulation Helper Relationship Specialty Start Date End Date Nadir Grady MD [address] [facility] [place] [address] PCP - General Family Medicine 08/04/15 Arnaud HarrellFreeman [facility] Institute [address] [facility] [place] [address] Pharmacist Pharmacy 10/20/20 WhittingtonKarenFreeman Cancer Institute [address] [facility] [place] [address] Pharmacist Pharmacy 03/15/21 Yolanda Dean (Pa) [address] [place] [address] Referring Pulmonary and Critical Care Medicine 02/07/22 Insulation Helper Relationship Specialty Start Date End Date Nadir Grady MD [address] [facility] [place] [address] PCP - General Family Medicine 08/04/15 Arnaud HarrellFreeman [facility] [address] [facility] [place] [address] Pharmacist Pharmacy 10/20/20 Karen PiperFre[facility] [address] [facility] [place] [address] Pharmacist Pharmacy 03/15/21 Yolanda Dean (Pa) [address] [place] [address] Referring Pulmonary and Critical Care Medicine 02/07/22 Insulation Helper Relationship Specialty Start Date End Date Nadir Grady MD [address] [facility] [place] [address] PCP - General Family Medicine 08/04/15 Toddsilvia ArnaudFreeman Cancer Institute [address] [facility] [place] [address] Pharmacist Pharmacy 10/20/20 Karen PiperFre[facility] [address] [facility] [place] [address] Pharmacist Pharmacy 03/15/21 Yolanda Dean (Pa) [address] [place] [address] Referring Pulmonary and Critical Care Medicine 02/07/22 Insulation Helper Relationship Specialty Start Date End Date Nadir Grady MD [address] [facility] [place] [address] PCP - General Family Medicine 08/04/15 ToddArnaud vegaFreeman Cancer Institute [address] [facility] [place] [address] Pharmacist Pharmacy 10/20/20 Karen [facility]perFre[facility] [address] [facility] [place] [address] Pharmacist Pharmacy 03/15/21 Yolanda Dean (Pa) [address] [place] [address] Referring Pulmonary and Critical Care Medicine 02/07/22 Insulation Helper Relationship Specialty Start Date End Date Nadir Grady MD [address] [facility] [place] [address] PCP - General Family Medicine 08/04/15 Toddsilvia Arnaud, [facility] [address] [facility] [place] [address] Pharmacist Pharmacy 10/20/20 Feliz, KarenFreeman [facility] [address] [facility] [place] [address] Pharmacist Pharmacy 03/15/21 Yolanda Dean (Pa) [address] [facility] [place] [address] Referring Pulmonary and Critical Care Medicine 02/07/22 Insulation Helper Relationship Specialty Start Date End Date Nadir Grady MD [address] [facility] [place] [address] PCP - General Family Medicine 08/04/15 Arnaud Harrell, [facility] [address] [facility] [place] [address] Pharmacist Pharmacy 10/20/20 Karen PiperFre[facility] [address] [facility] [place] [address] Pharmacist Pharmacy 03/15/21 Yolanda Dean (Pa) [address] [facility] [place] [address] Referring Pulmonary and Critical Care Medicine 02/07/22 Insulation Helper Relationship Specialty Start Date End Date Nadir Grady MD [address] [facility] [place] [address] PCP - General Family Medicine 08/04/15 Arnaud Harrell, [facility] [address] [facility] [place] [address] Pharmacist Pharmacy 10/20/20 Karen PiperFre[facility] [address] [facility] [place] [address] Pharmacist Pharmacy 03/15/21 Yolanda Dean (Pa) [address] [place] [address] Referring Pulmonary and Critical Care Medicine 02/07/22 Insulation Helper Relationship Specialty Start Date End Date Nadir Grady MD [address] [facility] [place] [address] PCP - General Family Medicine 08/04/15 ToddArnaud vegaFreeman Cancer Institute [address] [facility] [place] [address] Pharmacist Pharmacy 10/20/20 WhittingtonKaren florFreeman Cancer Institute [address] [facility] [place] [address] Pharmacist Pharmacy 03/15/21 Yolanda Dean (Pa) [address] [facility] [place] [address] Referring Pulmonary and Critical Care Medicine 02/07/22 Insulation Helper Relationship Specialty Start Date End Date Nadir Grady MD [address] [facility] [place] [address] PCP - General Family Medicine 08/04/15 ToddArnaud evgaFreeman Cancer [facility] [address] [facility] [place] [address] Pharmacist Pharmacy 10/20/20 FelizKaren florFreeman [facility] [address] [facility] [place] [address] Pharmacist Pharmacy 03/15/21 Yolanda Dean (Pa) [address] [place] [address] Referring Pulmonary and Critical Care Medicine 02/07/22 Insulation Helper Relationship Specialty Start Date End Date Nadir Grady MD [address] [facility] [place] [address] PCP - General Family Medicine 08/04/15 Sharri BriankatiFre[facility] [address] [facility] [place] [address] Pharmacist Pharmacy 10/20/20 WhittingtonKarenFreeman Cancer [facility] [address] [place] [address] Pharmacist Pharmacy 03/15/21 Yolanda Dean (Pa) [address] [facility] [place] [address] Referring Pulmonary and Critical Care Medicine 02/07/22 Insulation Helper Relationship Specialty Start Date End Date Nadir Grady MD [address] [facility] [place] [address] PCP - General Family Medicine 08/04/15 Arnaud HarrellFreeman [facility] [address] [facility] [place] [address] Pharmacist Pharmacy 10/20/20 FelizKarenFreeman [facility] [address] [facility] [place] [address] Pharmacist Pharmacy 03/15/21 Yoladna Dean (Pa) [address] [facility] [place] [address] Referring Pulmonary and Critical Care Medicine 02/07/22 Insulation Helper Relationship Specialty Start Date End Date Nadir Grady MD [address] [facility] [place] [address] PCP - General Family Medicine 08/04/15 Arnaud HarrellFre[facility] [address] [facility] [place] [address] Pharmacist Pharmacy 10/20/20 WhittingtonKarenFre[facility] [address] [facility] [place] [address] Pharmacist Pharmacy 03/15/21 Yolanda Dean (Pa) [address] [place] [address] Referring Pulmonary and Critical Care Medicine 02/07/22 Insulation Helper Relationship Specialty Start Date End Date Nadir Grady MD [address] [facility] [place] [address] PCP - General Family Medicine 08/04/15 [facility] vegaFre[facility] [address] [facility] [place] [address] Pharmacist Pharmacy 10/20/20 [place] KarenFre[facility] [address] [facility] [place] [address] Pharmacist Pharmacy 03/15/21 Yolanda Dean (Pa) [address] [place] [address] Referring Pulmonary and Critical Care Medicine 02/07/22 Insulation Helper Relationship Specialty Start Date End Date Nadir Grady MD [address] [facility] [place] [address] PCP - General Family Medicine 08/04/15 Arnaud HarrellFreeman [facility] [address] [facility] [place] [address] Pharmacist Pharmacy 10/20/20 Karen PiperFre[facility] [address] [facility] [place] [address] Pharmacist Pharmacy 03/15/21 Yolanda Dean (Pa) [address] [place] [address] Referring Pulmonary and Critical Care Medicine 02/07/22 Insulation Helper Relationship Specialty Start Date End Date Nadir Grady MD [address] [facility] [place] [address] PCP - General Family Medicine 08/04/15 Sharri BriankatiFre[facility] [address] [place] [address] Pharmacist Pharmacy 10/20/20 Feliz KarenFre[facility] [address] [place] [address] Pharmacist Pharmacy 03/15/21 Yolanda Dean (Pa) [address] [facility] [place] [address] Referring Pulmonary and Critical Care Medicine 02/07/22 Insulation Helper Relationship Specialty Start Date End Date Nadir Grady MD [address] [facility] [place] [address] PCP - General Family Medicine 08/04/15 ToddBrian vegakatiFreeman Cancer Institute [address] [facility] [place] [address] Pharmacist Pharmacy 10/20/20 Whittington, KarenFreeman [facility] [address] [facility] [place] [address] Pharmacist Pharmacy 03/15/21 Yolanda Dean (Pa) [address] [facility] [place] [address] Referring Pulmonary and Critical Care Medicine 02/07/22 Insulation Helper Relationship Specialty Start Date End Date Nadir Grady MD [address] [facility] [place] [address] PCP - General Family Medicine 08/04/15 Sharri Arnaud, [facility] [address] [facility] [place] [address] Pharmacist Pharmacy 10/20/20 Karen PiperFre[facility] [address] [facility] [place] [address] Pharmacist Pharmacy 03/15/21 Yolanda Dean (Camelia) [address] [facility] [place] [address] Referring Pulmonary and Critical Care Medicine 02/07/22 Insulation Helper Relationship Specialty Start Date End Date Nadir Grady MD [address] [facility] [place] [address] PCP - General Family Medicine 08/04/15 [facility]ilvia BriankatiFre[facility] [address] [facility] [place] [address] Pharmacist Pharmacy 10/20/20 Karen PiperFre[facility] [address] [facility] [place] [address] Pharmacist Pharmacy 03/15/21 Yolanda Dean (Pa) [address] [facility] [place] [address] Referring Pulmonary and Critical Care Medicine 02/07/22 Insulation Helper Relationship Specialty Start Date End Date Nadir Grady MD [address] [facility] [place] [address] PCP - General Family Medicine 08/04/15 Sharri Briankati, Former[facility] [address] [facility] [place] [address] Pharmacist Pharmacy 10/20/20 Karen [facility]Fre[facility] [address] [facility] [place] [address] Pharmacist Pharmacy 03/15/21 Yolanda Dean (Pa) [address] [facility] [place] [address] Referring Pulmonary and Critical Care Medicine 02/07/22 Insulation Helper Relationship Specialty Start Date End Date Nadir Grady MD [address] [facility] [place] [address] PCP - General Family Medicine 08/04/15 Arnaud HarrellFreeman [facility] [address] [place] [address] Pharmacist Pharmacy 10/20/20 Karen PiperFre[facility] [address] [place] [address] Pharmacist Pharmacy 03/15/21 Yolanda Dean (Pa) [address] [facility] [place] [address] Referring Pulmonary and Critical Care Medicine 02/07/22 Insulation Helper Relationship Specialty Start Date End Date Nadir Grady MD [address] [place] [address] PCP - General Family Medicine 08/04/15 Arnaud HarrellFre[facility] [address] [place] [address] Pharmacist Pharmacy 10/20/20 Karen PiperFre[facility] [address] [place] [address] Pharmacist Pharmacy 03/15/21 Yolanda Dean PA [address] [place] [address] Referring Pulmonary and Critical Care Medicine 02/07/22 Insulation Helper Relationship Specialty Start Date End Date Nadir Grady MD [address] [place] [address] PCP - General Family Medicine 08/04/15 Arnaud HarrellFre[facility] [address] [place] [address] Pharmacist Pharmacy 10/20/20 Karen Piper, [facility] [address] [place] [address] Pharmacist Pharmacy 03/15/21 Yolanda Dean PA [address] [place] [address] Referring Pulmonary and Critical Care Medicine 02/07/22 Insulation Helper Relationship Specialty Start Date End Date Nadir Grady MD [address] [place] [address] PCP - General Family Medicine 08/04/15 Arnaud Harrell, [facility] [address] [place] [address] Pharmacist Pharmacy 10/20/20 Karen Piper, [facility] [address] [place] [address] Pharmacist Pharmacy 03/15/21 Yolanda Dean PA [address] [place] [address] Referring Pulmonary and Critical Care Medicine 02/07/22 Insulation Helper Relationship Specialty Start Date End Date Nadir Grady MD [address] [place] [address] PCP - General Family Medicine 08/04/15 Arnaud Harrell, Formerly [facility] [address] [place] [address] Pharmacist Pharmacy 10/20/20 Karen Piper, Formerly [facility] [address] [place] [address] Pharmacist Pharmacy 03/15/21 Yolanda Dean PA [address] [facility] [place] [address] Referring Pulmonary and Critical Care Medicine 02/07/22 Insulation Helper Relationship Specialty Start Date End Date Nadir Grady MD [address] [facility] [place] [address] PCP - General Family Medicine 08/04/15 [facility] [address] [facility] [place] [address] Pharmacist Pharmacy 10/20/20 [facility] [address] [facility] [place] [address] Pharmacist Pharmacy 03/15/21 Yolanda Dean PA [address] [facility] [place] [address] Referring Pulmonary and Critical Care Medicine 02/07/22 Insulation Helper Relationship Specialty Start Date End Date Nadir Grady MD [address] [facility] [place] [address] PCP - General Family Medicine 08/04/15 Toddsilvia Arnaud, Formerly [facility] [address] [facility] [place] [address] Pharmacist Pharmacy 10/20/20 [facility] [address] [facility] [place] [address] Pharmacist Pharmacy 03/15/21 Yolanda Dean PA [address] [facility] [place] [address] Referring Pulmonary and Critical Care Medicine 02/07/22 Insulation Helper Relationship Specialty Start Date End Date Nadir Grady MD [address] [place], [place] [id number] PCP - General Family Medicine 08/04/15 [facility] [address] [place], [place] [address] Pharmacist Pharmacy 10/20/20 Karen Piper, Formerly [facility] [address] [place], [place] [address] Pharmacist Pharmacy 03/15/21 Yolanda Dean PA [address] [place], [place] [address] Referring Pulmonary and Critical Care Medicine 02/07/22 [...] BE BASED ON THE PRIMARY CLINICAL RECORDS. [facility]. provides no warranty or guarantee of the accuracy or completeness of information in this document.
[2023-10-09 20:35] LABS: Reflex Troponin-HS? (from REC) Y
[2023-10-09 21:07] LABS: Troponin-I HS 13 pg/mL (3.0-78.0)
--- NOTE | 2023-10-09 21:38 | ECHOD_ITS ---
Reason For Study: CAD Left Ventricle Normal LV size. Sigmoid septum. Left ventricular systolic function is normal. The estimated ejection fraction is 60 %. Normal diastololic function. No regional wall motion abnormalities noted. Right Ventricle Normal RV size. Normal systolic function. Atria The left atrium is mildly enlarged. Normal right atrium. Mitral Valve Mild focal mitral valve thickening. Mild focal mitral valve calcification. There is no mitral valve stenosis. Moderate (2+) posteriorly directed mitral valve insufficiency. Tricuspid Valve Normal tricuspid valve. Trivial tricuspid valve insufficiency. Right ventricular systolic pressure estimated to be 21 mmHg. Aortic Valve Trisinus/trileaflet aortic valve. Mild focal aortic valve calcification. Aortic sclerosis, no stenosis. Trivial aortic valve insufficiency. Pulmonic Valve Normal pulmonic valve. Trivial pulmonic valve insufficiency. Great Vessels Normal aortic root. Pericardium/Pleural No pericardial effusion. MMode/2D Measurements & Calculations LVIDd: 4.8 cm IVSd: 1.00 cm LVOT diam: 2.0 cm RVDd: 4.1 cm LVPWd: 0.87 cm LVOT area: 3.1 cm2 Ao root diam: 3.2 cm LAV(MOD-bp): 68.1 ml LVAd ap4: 34.9 cm2 LAV(MOD-bp) Indexed: 32.9 ml/m2 LVLd ap4: 9.7 cm LAV(MOD-sp2): 62.2 ml EDV(MOD-sp4): 103.3 ml LAV(MOD-sp4): 62.2 ml EDV(sp4-el): 106.5 ml LVAs ap4: 18.2 cm2 LVLs ap4: 7.9 cm ESV(MOD-sp4): 36.8 ml ESV(sp4-el): 35.6 ml EF(MOD-sp4): 64.4 % EF(sp4-el): 66.6 % LVAd ap2: 35.6 cm2 SV(MOD-sp4): 66.5 ml SV(MOD-sp2): 68.4 ml LVLd ap2: 9.6 cm EDV(MOD-sp2): 109.1 ml EDV(sp2-el): 112.2 ml LVAs ap2: 19.6 cm2 LVLs ap2: 8.2 cm ESV(MOD-sp2): 40.7 ml ESV(sp2-el): 39.8 ml EF(MOD-sp2): 62.7 % SV(sp4-el): 70.9 ml LA dimension(2D): 3.8 cm LA A4 area: 22.7 cm2 RA A4 area: 15.6 cm2 TAPSE: 2.7 cm Time Measurements MV dec time: 0.21 sec Doppler Measurements & Calculations MV E max dayday: 96.6 cm/sec Lat Peak E' Dayday: 9.5 cm/sec Med Peak E' Dayday: 7.2 cm/sec MV A max dayday: 98.4 cm/sec E/E' lat: 10.2 E/E' med: 13.5 MV E/A: 0.98 Ao V2 max: 169.4 cm/sec LV V1 max: 101.3 cm/sec MV dec slope: 452.3 cm/sec2 Ao max P.5 mmHg LV V1 max P.1 mmHg Ao V2 mean: 120.9 cm/sec LV V1 mean P.2 mmHg Ao mean P.6 mmHg LV V1 mean: 69.9 cm/sec Ao V2 VTI: 40.9 cm LV V1 VTI: 25.5 cm AV (velocity ratio): 0.62 KATT(I,D): 1.9 cm2 KATT(V,D): 1.8 cm2 SV(LVOT): 78.5 ml PA V2 max: 74.6 cm/sec TR max dayday: 209.1 cm/sec TR max P.5 mmHg ECHO/Echo Complete Interpretation Summary The estimated ejection fraction is 60 %. The left atrium is mildly enlarged. Aortic sclerosis, no stenosis. Moderate (2+) posteriorly directed mitral valve insufficiency. Ordering Physician: Gildardo Walton Referring Physician: Nadir Abdalla Performed By: Sally Quintana RDCS
[2023-10-09] MEDS: Acetaminophen 325 MG Tablet 650 MG PO (22:18)
[2023-10-09] MEDS: Ranolazine 500 MG Tablet PO (22:19)
[2023-10-09] MEDS: Carvedilol 3.125 MG TABLET PO (22:19)
[2023-10-09] MEDS: Atorvastatin Calcium 80 MG Tablet PO (22:20)
[2023-10-09] MEDS: Insulin Lispro 100 UNIT/ML INSULN.PEN 10 UNIT SC (22:29)
[2023-10-09] MEDS: Insulin Lispro 100 UNIT/ML INSULN.PEN SC (22:30)
[2023-10-09 23:02] LABS: Bedside Glucose 162 mg/dL (74-106)
[2023-10-10] VITALS (13 sets, daily range): BP systolic 110–162; BP diastolic 59–81; PULSE 60–82; RESP 14–18; TEMP 36.3–37.2; O2SAT 93–98; BMI 28.1
[2023-10-10 01:39] LABS: Troponin-I HS 21 pg/mL (3.0-78.0)
[2023-10-10 01:43] LABS: Partial Thromboplast Time 88.4 Seconds (24.1-36.2)
[2023-10-10] MEDS: Nitroglycerin Oint 1 INCH PACKET TD (05:16)
[2023-10-10] MEDS: 0.9% Saline Lock 10 ML Syringe IV (05:19)
[2023-10-10] MEDS: Carvedilol 3.125 MG TABLET PO ×2 (06:05→06:06)
[2023-10-10] MEDS: Ibuprofen 400 MG Tablet PO (06:05)
[2023-10-10] MEDS: Pantoprazole Sodium 40 MG Tablet PO (06:05)
[2023-10-10] MEDS: Clopidogrel Bisulfate 75 MG Tablet PO (06:05)
[2023-10-10] MEDS: Ranolazine 500 MG Tablet PO (06:05)
[2023-10-10] MEDS: Aspirin E.C. 81 MG Tablet PO (06:06)
[2023-10-10 06:43] LABS: Absolute Lymphocyte Count 1.27 X10^3/uL (0.83-4.51); Absolute Neutrophil Count 3.2 X10^3/uL (2.0-7.7); Basophil# 0.04 X10^3/uL; Basophil% 0.8 % (0-1); Eosinophils% 3.9 % (0-5); Hematocrit 32.9 % (40-54); Lymphocyte # 1.27 X10^3/ul (0.83-4.51); Lymphocyte % 24.7 % (19-41); Mean Corp Hgb Conc 33.4 g/dL (32-36); Mean Corpuscular Hgb 30.1 pg (27.0-32.0); Mean Corpuscular Volume 89.9 fL (80-94); Mean Platelet Vol. 9.4 fl (6.2-12.0); Monocyte# 0.42 X10^3/uL; Monocyte% 8.2 % (0-10); NRBC Flagged by Analyzer 0 % (0-5); Neutrophil # 3.19 X10^3/uL (2.7-7.7); Neutrophil % 61.8 % (47-70); Platelet Count 177 K/mm3 (150-450); RBC Distribution Width CV 13.2 % (11.6-14.6); RBC Distribution Width SD 43.4 fl (35.1-43.9); Red Blood Count 3.66 M/mm3 (4.6-6.2); White Blood Count 5.2 K/mm3 (4.4-11.0)
[2023-10-10 06:58] LABS: Bedside Glucose 148 mg/dL (74-106)
[2023-10-10 07:27] LABS: Anion Gap 7 (5-15); BUN 19 mg/dL (7-18); Calcium,Total 8.7 mg/dL (8.5-10.1); Chloride 109 mmol/L (98-107); Cholesterol 129 mg/dL (200); Creatinine, Serum 0.86 mg/dL (0.70-1.30); EST Glomerular Filtration Rate 93 mL/min (>60); Est Glom Filt Rate - Afr Amer 112 mL/min (>60); Estimated Creatinine Clearance 89.76 ml/min; Glucose 145 mg/dL (74-106); High Density Lipoprotein 60 mg/dL; Sodium Level 141 mmol/L (136-145); Triglycerides 86 mg/dL; Very Low Density Lipoprotein 17 mg/dL (5-40)
[2023-10-10 09:30] LABS: BNP,B-Type NATRIURETIC PEPTIDE 41.9 pg/mL (0-100)
[2023-10-10 09:57] LABS: Partial Thromboplast Time 53.1 Seconds (24.1-36.2)
--- NOTE | 2023-10-10 10:02 | CASEMGMT ---
RIAN CAMARILLO Assessment Face to Face with patient for initial transition planning/care coordination assessment. RIAN CAMARILLO introduced self and role at [facility], pt voices understanding. Pt is A&Ox4 and is resting comfortably in bed and is calm. Care providers, pharmacy, and demographics verified. Admitting dx: Unstable Angina LACE Strata: 2 PCP: Rm Specialists: Liya Preferred Pharmacy[facility] Benefit: Yes LNOK: Jaylene Cameron (RANJEET), Syl Birch (RANJEET) Living Arrangements: Pt lives with his son in a 2 story home with a basement with handrails throughout. Pt states there are 2 steps to enter and denies issues using the steps. ADLs/IADLs: Ind Transportation: Pt drives. Pt states his brother will drive him home from the hospital DME: Denies use or needs at this time HHC/SNF: States history of [facility] HHC in 2021 (SN) for low BP. Pt?s goal: Home Plan: 6-Click=24. Pt plan and goal is to DC home with no additional needs at this time Blas Jimenez RN, CM
--- NOTE | 2023-10-10 12:41 | NURSING ---
Report called to [facility] rn lab.
[2023-10-10 13:34] LABS: Bedside Glucose 147 mg/dL (74-106)
--- NOTE | 2023-10-10 14:51 | PN.HOSP_ITS ---
Reason for Visit Reason for Visit: Diagnoses Unstable angina (10/09/23) Subjective Subjective Patient was admitted yesterday evening for worsening chest pain/pressure with shortness of breath in the setting of known history of extensive heart disease. Was admitted for further cardiac evaluation. Patient seen at bedside this morning, family members present. Patient was sitting up comfortably in bed, conversing normally, no acute distress. Patient states that he continues to have mild chest pressure this morning, improved from yesterday evening. Denies any shortness of breath at rest, has not gotten out of bed yet this morning. Denies any fevers or chills. No other concerns at this time. Objective Data Objective Data Vital Signs: Vital Signs Temp Pulse Resp BP Pulse Ox O2 Del Method 97.3 F L 67 16 159/81 H 95 Room Air 10/10/23 11:57 10/10/23 11:57 10/10/23 11:57 10/10/23 11:57 10/10/23 11:57 10/10/23 11:57 Oxygen Delivery Method Room Air Weight: 89 kg Body Mass Index (BMI) 28.1 Intake & Output: Intake and Output for Last 24 Hours 10/08/23 10/09/23 10/10/23 23:59 23:59 23:59 Intake Total 253.5 / 253.5 163.27 / 163.27 Balance 253.5 / 253.5 163.27 / 163.27 Lab / Micro Data 10/10/23 06:10 10/10/23 06:10 Labs: Laboratory Results - last 24 hr 10/09/23 18:30: WBC 7.1, RBC 3.87 L, Hgb 11.5 L, Hct 35.0 L, MCV 90.4, MCH 29.7, MCHC 32.9, RDW Std Deviation 42.6, RDW Coeff of Megan 13.0, Plt Count 210, MPV 9.5, Immature Gran % (Auto) 0.400, Neut % (Auto) 63.1, Lymph % (Auto) 25.4, [place] % (Auto) 7.7, Eos % (Auto) 2.7, Baso % (Auto) 0.7, Absolute Neuts (auto) 4.5, Absolute Lymphs (auto) 1.81, Nucleated RBC % 0, PT 12.4, INR 0.9, APTT 27.0, Sodium 138, Potassium 4.4, Chloride 105, Carbon Dioxide 26.0, Anion Gap 7, BUN 31 H, Creatinine 1.21, Estim Creat Clear Calc 70.42, Est GFR (MDRD) Af Amer 76, Est GFR (MDRD) Non-Af 63, BUN/Creatinine Ratio 25.6 H, Glucose 285 H, Calcium 8.6, Magnesium 2.1, Troponin I High Sens 5 10/09/23 20:35: Troponin I High Sens 13 10/09/23 22:16: POC Glucose 162 H 10/10/23 01:10: APTT 88.4 H, Troponin I High Sens 21 10/10/23 06:10: WBC 5.2, RBC 3.66 L, Hgb 11.0 L, Hct 32.9 L, MCV 89.9, MCH 30.1, MCHC 33.4, RDW Std Deviation 43.4, RDW Coeff of Megan 13.2, Plt Count 177, MPV 9.4, Immature Gran % (Auto) 0.600, Neut % (Auto) 61.8, Lymph % (Auto) 24.7, [place] % (Auto) 8.2, Eos % (Auto) 3.9, Baso % (Auto) 0.8, Absolute Neuts (auto) 3.2, Absolute Lymphs (auto) 1.27, Nucleated RBC % 0, Sodium 141, Potassium 4.0, Chloride 109 H, Carbon Dioxide 25.0, Anion Gap 7, BUN 19 H, Creatinine 0.86, Estim Creat Clear Calc 89.76, Est GFR (MDRD) Af Amer 112, Est GFR (MDRD) Non-Af 93, BUN/Creatinine Ratio 22.0 H, Glucose 145 H, Calcium 8.7, B-Natriuretic Peptide 41.9, Triglycerides 86, Cholesterol 129, LDL Cholesterol 52, VLDL Cholesterol 17, HDL Cholesterol 60, TSH 3.00 10/10/23 06:40: POC Glucose 148 H 10/10/23 09:28: APTT 53.1 H 10/10/23 12:25: POC Glucose 147 H Radiography Diagnostic Testing: Radiology Impression Chest X-Ray 10/09/23 18:40 IMPRESSION: No acute disease Electronically Signed: Odin Villaseñor MD at 18:53 EST Reading Location ID and State: [facility] / [place] Tel , Service support , Physical Exam Const alert, oriented x3, no apparent distress and average body habitus Constitutional Narrative: Pleasant elderly male, sitting up comfortably in bed, conversing normally, no acute distress. General Appearance: cooperative and comfortable HEENT normocephalic, head/scalp atraumatic, hearing grossly normal bilaterally, nasal mucous membranes and turbinates normal and moist oral mucous membranes Eyes PERRL, EOMs intact bilaterally and conjunctivae normal Neck full ROM, no lymphadenopathy and supple Lymph Lymphatic: no lymphadenopathy noted Chest inspection of chest normal Resp normal respiratory effort, normal air movement, no use of accessory muscles and clear to auscultation bilaterally Cardio regular rate, regular rhythm, no murmurs and peripheral pulses 2+ throughout GI normal to inspection, nondistended, normoactive bowel sounds, soft to palpation, non-tender and non-distended Back/Spine normal ROM Extremity normal to inspection, full ROM and no pedal edema Skin no rashes or lesions noted Neuro no focal motor deficits and no sensory deficits noted Speech: speech normal Psych mental status grossly normal Assessment & Plan Assessment/Plan (1) Unstable angina: PLAN: Plan Patient is a 68-year-old male who presented to [facility] ED on 10/09/2023 with worsening chest pain and shortness of breath. 1. Unstable angina, history of CAD s/p stenting Presented with chest pain with radiation to left hand and mild shortness of breath. EKG showed ST depressions in V5 and V6, otherwise sinus tachycardia with heart rate 105. Troponins negative. Last PCI with stenting was done in 07/2021. Stress test in 06/2023 was normal, showed preserved EF. TTE 10/09 showed EF 60%, normal diastolic function, mildly enlarged LA, aortic sclerosis with no stenosis, moderate mitral valve insufficiency. ? Cardiology following. S/p left heart cath on 10/10 with RODDY x 1 to distal RCA. Recommendation per cardiology for aspirin indefinitely and Brilinta for at least 12 months. Continue home statin. Also initiated on Coreg 3.125 mg twice daily, losartan 25 mg daily on 10/10 per cardiology recommendations. Monitor, if remains stable on 10/11, likely okay for discharge home. Chronic medical conditions: ? Type 2 diabetes mellitus with hyperglycemia: Home regimen of metformin 500 mg twice daily, pioglitazone 45 mg daily. Glucose 285 on admit. Last A1c of 7.5% back in 2020, repeat A1c pending. Continue Lantus 10 units at night with sliding-scale insulin, adjust as needed. ? Mild normocytic anemia: Hemoglobin stable at baseline. Continue home iron supplement. ? Anxiety: Continue home Ativan 0.5 mg twice daily as needed. DVT prophylaxis: Lovenox CODE STATUS: DNR CCA, DNI Expected disposition: Home, tomorrow Total clinical time spent by myself addressing the patient's medical issues, reviewing all the data, and collaborating with patient's care team: 35 minutes. Charges/Coding Visit Charges Inpatient E&M: 90484 Subs Hosp L2
--- NOTE | 2023-10-10 15:34 | PCM.CONS.C ---
Assessment & Plan Assessment/Plan (1) Unstable angina: PLAN: Recommend coronary angiography with possible revascularization. Risks benefits and alternatives explained. He understands these and wishes to proceed. (2) History of CAD (coronary artery disease): PLAN: See #1 above. Continue aspirin and Plavix. (3) Hypertension: PLAN: Started on beta-blockers. (4) Hyperlipidemia: QUALIFIERS: Hyperlipidemia type: unspecified Qualified Code(s): E78.5 - Hyperlipidemia, unspecified PLAN: Atorvastatin. (5) Type 2 diabetes mellitus: PLAN: As per internal medicine. HPI Consult Data Date of Consult: 10/10/23 HPI Narrative Reason for Consultation: Chest pain HPI Narrative: Gentleman with past medical history significant for coronary artery disease status post multiple percutaneous interventions, hypertension and dyslipidemia. He presented to the emergency room with complaints of chest pain at rest yesterday. He perceives it as a pressure across his anterior chest. No radiation. According to him, he has been having some exertional chest pain for the last couple of years but it has gradually been getting worse. Rest pain yesterday. [facility] Medical History Atherosclerotic heart disease of [place] coronary artery without angina pectoris Bilateral carotid artery stenosis BPH (benign prostatic hyperplasia) COVID-19 (06/2021) DDD (degenerative disc disease) Elevated LFTs Essential (primary) hypertension Hyperlipidemia Sciatica Syncope (10/2021) Tremor of both hands Type 2 diabetes mellitus Home Medications aspirin 81 mg tablet,delayed release 81 mg PO DAILY@0800 [facility] 09/13/13 [History Last Taken 02/11/22] omega 3-yio-gua-fish oil 1,000 mg (120 mg-180 mg) capsule (Fish Oil) 1,000 mg PO QDAY supplement 01/06/18 [History Last Taken 12/29/21] metformin 500 mg tablet,extended release 24 hr 500 mg PO BID 07/25/20 [History Last Taken 02/10/22] lorazepam 0.5 mg tablet 0.5 mg PO BID PRN Anxiety 05/23/22 [History Last Taken Unknown] pioglitazone 30 mg tablet (Actos) 30 mg PO DAILY diabetes 06/19/22 [History Last Taken Unknown] ferrous sulfate 325 mg (65 mg iron) tablet 325 mg PO DAILY 06/28/22 [History Last Taken Unknown] pantoprazole 40 mg tablet,delayed release (Protonix) 40 mg PO DAILY #30 tabs 07/16/22 [Rx Last Taken Unknown] nitroglycerin 0.4 mg sublingual tablet 0.4 mg sublingual Q5M PRN Chest Pain #25 tabs 09/03/22 [Rx Last Taken Unknown] ranolazine 500 mg tablet,extended release,12 hr 500 mg PO BID #60 tabs 05/15/23 [Rx Last Taken Unknown] atorvastatin 80 mg tablet 80 mg PO DAILY cholesterol #90 tabs 07/02/23 [Rx Last Taken Unknown] clopidogrel 75 mg tablet (Plavix) 75 mg PO DAILY #90 tabs 07/02/23 [Rx Last Taken Unknown] pioglitazone 45 mg tablet 45 mg PO DAILY diabetes 10/09/23 [History Last Taken Unknown] Allergy/AdvReac Type Severity Reaction Status Date / Time fludrocortisone Allergy Severe ANGIOEDEMA Verified 10/09/23 18:11 [From [facility]] perfume AdvReac Other Verified 10/09/23 18:11 Family History Sister CAD (coronary artery disease) CVA (cerebral vascular accident) Diabetes Myocardial infarction Hx of CABG Mother Cancer Lung CA Surgical History History of cataract surgery History of coronary artery stent placement (07/23/21) History of hand surgery History of left heart catheterization (02/11/22) History of loop recorder (12/13/21) Hx of appendectomy Social History Smoking Status: Never smoker alcohol intake: never substance use type: does not use caffeine: No what type of physical activity do you participate in: none seatbelt use: always do you feel safe at home: Yes Physical Exam Const Constitutional Narrative: Comfortable. No apparent distress. Heart sounds 1 and 2 noted. 2/6 systolic murmur at base. Chest clear to auscultation bilaterally. Alert oriented x 3. No ankle edema. Risk Stratification Risk Stratification Applicable: No Objective Data Vital Signs: Vital Signs Temp Pulse Resp BP Pulse Ox O2 Del Method 97.3 F L 67 16 159/81 H 95 Room Air 10/10/23 11:57 10/10/23 11:57 10/10/23 11:57 10/10/23 11:57 10/10/23 11:57 10/10/23 11:57 Oxygen Delivery Method Room Air Weight: 196 lb 3.382 oz Body Mass Index (BMI) 28.1 Intake & Output: Intake and Output for Last 24 Hours 10/08/23 10/09/23 10/10/23 23:59 23:59 23:59 Intake Total 253.5 / 253.5 163.27 / 163.27 Balance 253.5 / 253.5 163.27 / 163.27 Lab / Micro Data 10/10/23 06:10 10/10/23 06:10 Labs: Laboratory Results - last 24 hr 10/09/23 18:30: WBC 7.1, RBC 3.87 L, Hgb 11.5 L, Hct 35.0 L, MCV 90.4, MCH 29.7, MCHC 32.9, RDW Std Deviation 42.6, RDW Coeff of Megan 13.0, Plt Count 210, MPV 9.5, Immature Gran % (Auto) 0.400, Neut % (Auto) 63.1, Lymph % (Auto) 25.4, [place] % (Auto) 7.7, Eos % (Auto) 2.7, Baso % (Auto) 0.7, Absolute Neuts (auto) 4.5, Absolute Lymphs (auto) 1.81, Nucleated RBC % 0, PT 12.4, INR 0.9, APTT 27.0, Sodium 138, Potassium 4.4, Chloride 105, Carbon Dioxide 26.0, Anion Gap 7, BUN 31 H, Creatinine 1.21, Estim Creat Clear Calc 70.42, Est GFR (MDRD) Af Amer 76, Est GFR (MDRD) Non-Af 63, BUN/Creatinine Ratio 25.6 H, Glucose 285 H, Calcium 8.6, Magnesium 2.1, Troponin I High Sens 5 10/09/23 20:35: Troponin I High Sens 13 10/09/23 22:16: POC Glucose 162 H 10/10/23 01:10: APTT 88.4 H, Troponin I High Sens 21 10/10/23 06:10: WBC 5.2, RBC 3.66 L, Hgb 11.0 L, Hct 32.9 L, MCV 89.9, MCH 30.1, MCHC 33.4, RDW Std Deviation 43.4, RDW Coeff of Megan 13.2, Plt Count 177, MPV 9.4, Immature Gran % (Auto) 0.600, Neut % (Auto) 61.8, Lymph % (Auto) 24.7, [place] % (Auto) 8.2, Eos % (Auto) 3.9, Baso % (Auto) 0.8, Absolute Neuts (auto) 3.2, Absolute Lymphs (auto) 1.27, Nucleated RBC % 0, Sodium 141, Potassium 4.0, Chloride 109 H, Carbon Dioxide 25.0, Anion Gap 7, BUN 19 H, Creatinine 0.86, Estim Creat Clear Calc 89.76, Est GFR (MDRD) Af Amer 112, Est GFR (MDRD) Non-Af 93, BUN/Creatinine Ratio 22.0 H, Glucose 145 H, Calcium 8.7, B-Natriuretic Peptide 41.9, Triglycerides 86, Cholesterol 129, LDL Cholesterol 52, VLDL Cholesterol 17, HDL Cholesterol 60, TSH 3.00 10/10/23 06:40: POC Glucose 148 H 10/10/23 09:28: APTT 53.1 H 10/10/23 12:25: POC Glucose 147 H Cardiology Labs/Tests 10/09/23 18:30: WBC 7.1, RBC 3.87 L, Hgb 11.5 L, Hct 35.0 L, MCV 90.4, MCH 29.7, MCHC 32.9, Plt Count 210, MPV 9.5, Immature Gran % (Auto) 0.400, Neut % (Auto) 63.1, Lymph % (Auto) 25.4, [place] % (Auto) 7.7, Eos % (Auto) 2.7, Baso % (Auto) 0.7, Absolute Neuts (auto) 4.5, Nucleated RBC % 0, PT 12.4, INR 0.9, APTT 27.0, Sodium 138, Potassium 4.4, Chloride 105, Carbon Dioxide 26.0, Anion Gap 7, BUN 31 H, Creatinine 1.21, Est GFR (MDRD) Af Amer 76, Est GFR (MDRD) Non-Af 63, BUN/Creatinine Ratio 25.6 H, Glucose 285 H, Calcium 8.6, Magnesium 2.1 10/10/23 01:10: APTT 88.4 H 10/10/23 06:10: WBC 5.2, RBC 3.66 L, Hgb 11.0 L, Hct 32.9 L, MCV 89.9, MCH 30.1, MCHC 33.4, Plt Count 177, MPV 9.4, Immature Gran % (Auto) 0.600, Neut % (Auto) 61.8, Lymph % (Auto) 24.7, [place] % (Auto) 8.2, Eos % (Auto) 3.9, Baso % (Auto) 0.8, Absolute Neuts (auto) 3.2, Nucleated RBC % 0, Sodium 141, Potassium 4.0, Chloride 109 H, Carbon Dioxide 25.0, Anion Gap 7, BUN 19 H, Creatinine 0.86, Est GFR (MDRD) Af Amer 112, Est GFR (MDRD) Non-Af 93, BUN/Creatinine Ratio 22.0 H, Glucose 145 H, Calcium 8.7, B-Natriuretic Peptide 41.9, Triglycerides 86, Cholesterol 129, LDL Cholesterol 52, VLDL Cholesterol 17, HDL Cholesterol 60 10/10/23 09:28: APTT 53.1 H Rhythm: EKG: ECHO: Stress Test: Cardiac Cath: PCI: CT Surgery: Holter monitor: EPS: PPM: CXR: Chest CT Scan: Radiography Diagnostic Testing: Radiology Impression Chest X-Ray 10/09/23 18:40 IMPRESSION: No acute disease Electronically Signed: Odin Villaseñor MD at 18:53 EST Reading Location ID and State: [facility] / [place] Tel , Service support ,
--- NOTE | 2023-10-10 15:45 | EKG12_ITS ---
Test Reason : POSTPCI Blood Pressure : / mmHG Vent. Rate : 075 BPM Atrial Rate : 075 BPM P-R Int : 150 ms QRS Dur : 084 ms QT Int : 380 ms P-R-T Axes : 051 031 028 degrees QTc Int : 424 ms Normal sinus rhythm Normal ECG When compared with ECG of 10-OCT-2023 05:13, MANUAL COMPARISON REQUIRED, DATA IS UNCONFIRMED Confirmed by Guerrero Ornelas ([id number]), society editor CODY YOON ([id number]) on 10/14/2023 9:40:33 AM Referred By: ANGY Confirmed By:Guerrero Ornelas
--- NOTE | 2023-10-10 15:55 | CRPHASE1 ---
Patient Communication Patient Information Former Patient:: Phase I and Phase II PHII Cardiac Rehab Discussed with Patient:: Yes Guide to Cardiac Rehab Given to Patient:: Yes Cardiac Rehab Facility Choice List Given to Patient:: Yes Communication to Cardiac Rehab Choice Program [facility] CR PHII:: Communication Given to CR Lodging Manager:: Ez [facility]st Phase II Cardiac Rehab:: Yes Sessions:: 36 sessions - 3 days/wk, 12 weeks Cardiac Rehabilitation Info Program Information Cardiac Rehabilitation Program Information: Cardiac Rehab The cardiac rehab team at [facility] consists of highly skilled exercise physiologists, nurses, respiratory therapists and physicians working together with you. Our purpose is to help you have a full recovery and achieve the goals you set for yourself. Over the years many of our patients have returned to activities they assumed they would never do again! We can help restore your confidence and motivation to make lifestyle changes that can have a significant impact on your health and quality of life! We can help answer questions and concerns you may have about exercise, lifestyle, medications, diet, stress and anxiety which are common following a hospitalization. WE monitor ECG and vital signs during exercise and discuss your progress with you and report to your physician(s). Cardiac Rehab is proven to help reduce readmissions, improve functional capacity and lower recurrence of problems with your heart. Our Cardiac Rehab program is Certified by the [place] [employer]io-Vascular and Pulmonary Rehabilitation (AACVPR) and Accredited by the [place] [employer] through our [facility]. You can contact us at . We invite you to call us with your questions or to get started in our program. If you have other questions or concerns be sure to ask your physician/provider during your follow-up visit. WE look forward to seeing you!
--- NOTE | 2023-10-10 15:55 | CRPH1.INSTRU ---
General Education Discussed with Patient CAD and cardiac anatomy and function:: Patient communicates acknowledgment Explanation of diagnoses and procedures:: Patient communicates acknowledgment Sign/Symptoms of TN:: Patient communicates acknowledgment Antiplatelet therapy: Patient communicates acknowledgment Proper use of NTG-SL: Patient communicates acknowledgment Emergency procedures and activation of EMS: Patient communicates acknowledgment Compliance of all prescribed medications: Patient communicates acknowledgment Smoking Risk Factors Patient Nicotine/Smoking Risk Factors Are:: Non-smoker Dyslipidemia Risk Factors Patient Dyslipidemia Risk Factors Are:: Total Cholesterol, Triglycerides, HDL and LDL Recommendations Recommendations Include:: Lipid profile provided, Reviewed NCEP/ATP guidelines and Therapeutic Lifestyle Change dietary guidelines Response Code Dyslipidemia Response Code:: Patient communicates acknowledgment Overweight/Obesity Risk Factors Patient Overweight/Obesity Risk Factors Are:: BMI Normal [24-29 & > 65 years old] Recommendations Recommendations Include:: Weight loss of 5-10%, Reduced calorie diet and Exercise 5-7 times/week Response Code Overweight/Obesity:: Patient communicates acknowledgment Hypertension Recommendations Recommendations Include:: BP <130/80 if diabetic, DASH dietary guidelines, Decrease/maintain normal body weight and Moderation of ETOH Response Code Hypertension:: Patient communicates acknowledgment Heart Disease Risk Factors Patient Heart Disease Risk Factors Are:: Previous cardiac event Response Code Heart Disease Response Code:: Patient communicates acknowledgment Diabetes Risk Factors Patient Diabetes Risk Factors Are:: Elevated blood sugars and Post-op hyperglycemia Recommendations Recommendations Include:: Maintain fasting blood sugars 70-110 md/dL, Maintain HgbA1c of 6% or less, Monitor blood sugar as prescribed, Diabetic dietary guidelines and Decrease/maintain body weight Response Code Diabetes:: Patient communicates acknowledgment Metabolic Syndrome Risk Factors Patient Metabolic Syndrome Risk Factors Are [3 of 5]:: Fasting blood sugar > 100 mg/dL, Waist circumference > 35 [female] or 40 [male] and Hypertension Recommendations Recommendations Include:: Reinforce compliance to risk factor modifications, Patient is diabetic and Encouraged follow-up with Primary Care Physician Response Code Metabolic Syndrome Response Code:: Patient communicates acknowledgment Sedentary Risk Factors Patient Sedentary Risk Factors Are:: Lack of regular exercise Recommendations Recommendations Include:: Aerobic exercise 5-7 times/week for 20-30 minutes continuously, Benefits of regular exercise, Discussed home walking program and Monitored Outpatient Cardiac Rehab Response Code Sedentary Response Code:: Patient communicates acknowledgment Stress Recommendations Recommendations Include:: Identification of stressors, and assessment of coping skills and Stress management techniques Response Code Stress Response Code:: Patient communicates acknowledgment
[2023-10-10] MEDS: 0.9% Normal Saline (1000mL) 1,000 ML 150 ML IV (15:57)
--- NOTE | 2023-10-10 16:03 | CL.I_ITS ---
Patient Name: PRESTON BATES Study Date: 10/10/2023 Performing: Ez Hurst MD Ht: 70 inches 177.8 cm : 1955 Wt: 196.5 lbs 89 kg Age: 68 Gender: male BSA: 2.07 PROCEDURE(S) PERFORMED DC02-(40592)LHC/COR IC12-(37170/C9600)RODDY W/WO PTCA, SINGLE CORONARY ARTERY [id number] INTRAVASCULAR LITHOTRIPSY IC10-(52092)FFR, CORONARY OR GRAFT, INITIAL VESSEL CLINICAL PROFILE AND CO-MORBIDITIES Indications: Worsening Angina Heart Failure: None Angina Classification Anginal Classification w/in 2 Weeks: CCS IV CAD Presentations: Unstable angina. CONCLUSIONS 50% Prox LAD, 50-60% ISR Mid LAD (iFR 0.90) 70% Prox OM2 (unchanged from previous study), small 1.5 mm vessel) 95% calcified Prox RCA; 90% calcified Mid RCA; 70% distal RCA Successful Shockwave lithotripsy, PTCA/RODDY Prox and Mid RCA using Jeff post-dilated using 3.5 mm balloon) Successful RODDY distal RCA using Jeff Williams 3.0x12 mm, 2.5x12 mm and 2.5 x8 mm RECOMMENDATIONS ASA Indefinitlemary Brilinta for at least 12 months DESCRIPTION OF PROCEDURE The patient arrived to the procedure lab. The risks and benefits of the procedure as well as a full description of our services here and lack of surgical backup were fully explained to the patient and/or their significant other prior to the catheterization. The Timeout was completed, verifying the correct patient and procedure. The patient's procedural site was prepped and draped in the usual fashion. Local anesthetic was given subcutaneously to right radial region with Lidocaine 2%. Using a modified Seldinger technique, arterial access was obtained via the right radial artery, a 6Fr sheath was inserted.. Left Coronary Artery selective angiography was performed in multiple views using a 5 Fr. 4.0 [place] catheter. Right Coronary Artery selective angiography was then performed in multiple views using a 5 Fr. 4.0 [place] catheterThe images were reviewed and options discussed. A decision was then made to proceed with an Intervention, IVUS or other adjunct procedure. AL 0.75 Guide catheter was inserted and engaged into the RCA. Runthrough Guide wire was advanced to the RCA. NC Emerge 2.50x12 Balloon catheter was inserted. PTCA balloon inflated at 12 atms for 10 secs. PTCA balloon inflated at 14 atms for 13 secs. Angiogram performed post balloon dilatation. NC Emerge 3.00x12 Balloon catheter was inserted. Runthrough-new Guide wire was advanced to the RCA. Angiogram performed post lithotripsy Williams Elliott 3.5x22 Drug Eluting stent was inserted. Drug Eluting stent was removed intact, failed to cross lesion NC Emerge 3.00x12 Balloon catheter was inserted. PTCA balloon inflated at 16 atms for 20 secs. PTCA balloon inflated at 16 atms for 9 secs. PTCA balloon inflated at 12 atms for 4 secs. Angiogram performed post balloon dilatation. Williams Elliott 3.5x22 Drug Eluting stent was inserted. Drug Eluting stent was removed intact, failed to cross lesion Choice extra support Guide wire was inserted as a perry wire Williams Jeff 3.5x22 Drug Eluting stent was inserted. Drug Eluting stent was removed intact, failed to cross lesion Williams Elliott 3.0x18 Drug Eluting stent was inserted. Angiogram performed post stent deployment. Williams Jeff 3.0x8 Drug Eluting stent was inserted. Drug Eluting stent was removed intact, failed to cross lesion NC Emerge 3.00x12 Balloon catheter was inserted. Angiogram performed post balloon dilatation. Williams Jeff 3.0x8 Drug Eluting stent was inserted. Drug Eluting stent was removed intact, failed to cross lesion Choice extra support Guide wire was inserted as a perry wire Williams Elliott 3.0x8 Drug Eluting stent was inserted on Choice PT wire Drug Eluting stent was removed intact, failed to cross lesion Orsiro 3.0x9 Drug Eluting stent was inserted. Angiogram performed post stent deployment. NC Emerge 3.50x12 Balloon catheter was inserted. Angiogram performed post balloon dilatation. Williams Jeff 3.0x12 Drug Eluting stent was inserted. Angiogram performed post stent deployment. Williams Jeff 3.5x22 Drug Eluting stent was inserted. Angiogram performed post stent deployment. Emerge 2.50x12 Balloon catheter was inserted. PTCA balloon inflated at 6 atms for 6 secs. PTCA balloon inflated at 6 atms for 6 secs. PTCA balloon inflated at 6 atms for 9 secs. 2.5x12 Drug Eluting stent was inserted. Drug Eluting stent was advanced across the lesion in the right coronary, distal. 2.5x8 jeff Drug Eluting stent was inserted. Drug Eluting stent was advanced across the lesion in the right coronary, distal. Angiogram performed post stent deployment. 3.0x12 Balloon catheter was advanced across lesion in the right coronary, distal. NC Emerge 3.5x12 Balloon catheter was inserted. PTCA balloon inflated at 12 atms for 6 secs. Angiogram performed post balloon dilatation. The FFR/iFR wire was inserted. iFR measurements were performed. iFR Ratio: 0.90 iFR Ratio: 0.91 iFR Ratio: 0.90 iFR Ratio: 0.94 The FFR/iFR wire was then removed. The arterial sheath was pulled and a TR Band was applied for hemostasis w/ 10ml air'] CORONARY ANGIOGRAPHY DOMINANCE: Right Dominant LEFT ANTERIOR DESCENDING ARTERY: LAD: Eccentric 50% Proximal lesion in LAD In-Stent Restenosis 60% Mid lesion in LAD OM 1: Tubular 70% Ostial lesion in MARG2 OM 2: Tubular 70% Ostial lesion in MARG2 RIGHT CORONARY ARTERY: RCA: Calcified 95% Proximal lesion in RCA Tubular 70% Distal lesion in RCA INTERVENTION INFORMATION LESION SITE: RCA (Proximal) Lesion Complexity: High/C, lesion length: 46 mm Pre Stenosis: 95 % Pre intervention SHARRI flow: 3 PROCEDURE: Drug Eluting Stent with pre and post dilatation Post Stenosis: 0 % Post intervention SHARRI flow: 3 Lesion Devices: Terumo .014 300cm Runthrough extra floppy straight Cordis 6 Fr AL.75 100cm Guide Catheter Nicola Sci NC EMERGE MR 2.50x12 BALLOON [employer] Shockwave IVL 3.5x12 [employer] Shockwave IVL cable sleeve Nicola Sci NC EMERGE MR 3.00x12 BALLOON Medtronic 3.0 x 18 JEFF FRONTIER RODDY [employer] Orsiro Lasara MR RODDY 3.0x9 Nicola Sci NC EMERGE MR 3.50x12 BALLOON Medtronic 3.5 x 22 JEFF FRONTIER RODDY Nicola Sci EMERGE MR 2.50x12 BALLOON Medtronic 2.50 x 12 JEFF FRONTIER RODDY LESION SITE: RCA (Distal) Lesion Complexity: Non-High/Non-C, lesion length: 10 mm Pre Stenosis: 70 % Pre intervention SHARRI flow: 3 PROCEDURE: Drug Eluting Stent with post dilatation Post Stenosis: 0 % Post intervention SHARRI flow: 3 Lesion Devices: Cordis 6 Fr AL.75 100cm Guide Catheter Terumo .014 180cm Runthrough Extra Floppy straight Nicola Sci NC EMERGE MR 3.50x12 BALLOON Medtronic 3.0 x 12 JEFF FRONTIER RODDY Nicola Sci EMERGE MR 2.50x12 BALLOON Medtronic 2.50 x 08 JEFF FRONTIER RODDY LESION SITE: LAD (Mid) Lesion Devices: Makstr (volcano) Coronary FFR Wire Cordis 6 Fr XB3.0 100cm Guide Catheter COMPLICATIONS No Complications PROCEDURE MEDICATIONS Versed 1 mg IV Fentanyl 50 mcg IV Versed 1 mg IV Fentanyl 50 mcg IV Fentanyl 25 mcg IV Oxygen: 2 L/min via nasal cannula Adenosine 48 mcg IC @ 10/10/2023 15:00:02 Heparin given IA 10/10/2023 13:13:52 Heparin 6000 unit(s) IV 10/10/2023 13:30:15 Heparin 2000 unit(s) IV 10/10/2023 13:43:58 Heparin 2000 unit(s) IV 10/10/2023 14:18:24 Nitro 200 mcg IC 10/10/2023 14:58:13 Verapamil 2.5mg, Ntg 200mcgs, 2000 units of Heparin given IA 10/10/2023 13:13:52 SUMMARY OF HEMODYNAMIC DATA Time AIR REST ECG 13:02:10 AO 138/76 (103) SA 13:23:27 Signed By Ez Hurst MD On 10/10/2023 16:02:39 Ez Hurst MD
[2023-10-10] MEDS: Insulin Lispro 100 UNIT/ML INSULN.PEN SC ×2 (16:28→21:46)
[2023-10-10 16:55] LABS: Bedside Glucose 154 mg/dL (74-106)
[2023-10-10 19:31] LABS: Hemoglobin A1c 7.3 % (3.8-5.6)
[2023-10-10] MEDS: TICAGRELOR 90 MG TABLET PO (21:42)
[2023-10-10] MEDS: Atorvastatin Calcium 80 MG Tablet PO (21:42)
[2023-10-10] MEDS: Losartan Potassium 25 MG Tablet PO (21:43)
[2023-10-10 23:06] LABS: Bedside Glucose 194 mg/dL (74-106)
[2023-10-11 03:30] VITALS: BP 132/62; PULSE 79; RESP 18; TEMP 36.8; O2SAT 96
[2023-10-11 04:40] LABS: Hematocrit 32.6 % (40-54); Hemoglobin 10.7 g/dL (13.0-16.5); Mean Corp Hgb Conc 32.8 g/dL (32-36); Mean Corpuscular Hgb 29.9 pg (27.0-32.0); Mean Corpuscular Volume 91.1 fL (80-94); Mean Platelet Vol. 9.4 fl (6.2-12.0); Platelet Count 195 K/mm3 (150-450); RBC Distribution Width CV 13.3 % (11.6-14.6); RBC Distribution Width SD 45.1 fl (35.1-43.9); Red Blood Count 3.58 M/mm3 (4.6-6.2); White Blood Count 7.8 K/mm3 (4.4-11.0)
[2023-10-11 05:12] LABS: ALB/GLOB Ratio 1.3 RATIO (0.9-2.4); AST(SGOT) 15 U/L (15-37); Alanine Aminotransfer ALT/SGPT 25 U/L (16-61); Albumin, Serum 3.9 g/dL (3.2-5.0); Alkaline Phosphatase 79 U/L (45-117); Anion Gap 8 (5-15); BUN 16 mg/dL (7-18); BUN/Creat Ratio 20.1 RATIO (10-20); Calcium,Total 8.7 mg/dL (8.5-10.1); Chloride 108 mmol/L (98-107); EST Glomerular Filtration Rate 102 mL/min (>60); Est Glom Filt Rate - Afr Amer 123 mL/min (>60); Estimated Creatinine Clearance 96.49 ml/min; Globulin 2.9 g/dL (2.2-4.2); Glucose 144 mg/dL (74-106); Potassium 3.7 mmol/L (3.5-5.1); Protein, Total 6.8 g/dL (6.4-8.2); Sodium Level 139 mmol/L (136-145)
[2023-10-11 06:00] VITALS: BMI 28.7
[2023-10-11 07:07] LABS: Bedside Glucose 144 mg/dL (74-106)
[2023-10-11 07:59] VITALS: O2SAT 97
[2023-10-11 09:05] VITALS: BP 118/60; PULSE 76; RESP 16; TEMP 36.7; O2SAT 96
[2023-10-11] MEDS: Carvedilol 3.125 MG TABLET PO (09:07)
[2023-10-11] MEDS: Pantoprazole Sodium 40 MG Tablet PO (09:08)
[2023-10-11] MEDS: Enoxaparin 40 MG/0.4 ML Syringe SC (09:08)
[2023-10-11] MEDS: Ferrous Sulfate 325 MG Tablet PO (09:08)
[2023-10-11] MEDS: Aspirin E.C. 81 MG Tablet PO (09:08)
[2023-10-11] MEDS: TICAGRELOR 90 MG TABLET PO (09:08)
[2023-10-11] MEDS: Losartan Potassium 25 MG Tablet PO (09:08)
--- NOTE | 2023-10-11 09:42 | PCM.PN.BLA ---
Progress Note Denies any complaints. No angina. May discharge home from a cardiology standpoint. Follow-up with Dr. Nickerson in 2 to 4 weeks. Continue aspirin lifelong. Ticagrelor for at least 1 year.
--- NOTE | 2023-10-11 10:00 | EKG12_ITS ---
Test Reason : AM EKG Blood Pressure : / mmHG Vent. Rate : 075 BPM Atrial Rate : 075 BPM P-R Int : 148 ms QRS Dur : 080 ms QT Int : 380 ms P-R-T Axes : 057 023 033 degrees QTc Int : 424 ms Normal sinus rhythm Normal ECG When compared with ECG of 10-OCT-2023 17:01, MANUAL COMPARISON REQUIRED, DATA IS UNCONFIRMED Confirmed by Guerrero Ornelas ([id number]), editorial cartoonist CODY YOON ([id number]) on 10/14/2023 9:40:22 AM Referred By: Confirmed By:Guerrero Ornelas
--- NOTE | 2023-10-11 11:27 | DCINST_ITS ---
Discharge Instructions Diet Discharge Diet: No restrictions Activity Discharge Activity: No Restrictions Weight Bearing Status: Full weight bearing Follow Up Care Test Results: Test results from this visit will be discussed in further detail at your follow- up appointment, if applicable. Discharge Plan Admission Admit Date/Time: 10/09/23 19:59 Primary Reason for Your Visit: chest pain Attending Provider: Foster Mayberry Primary Care Provider: Nadir Abdalla Consulting Providers: Ez Hurst; Gildardo Walton Instructions Additional Instructions / Restrictions: Please take medications as prescribed below. Follow-up with cardiology in the office in 2 to 4 weeks. Discharge Orders/Prescriptions Prescriptions: New carvedilol 3.125 mg Tablet 3.125 mg PO BID 30 Days Qty: 60 0RF losartan 25 mg Tablet 25 mg PO DAILY 30 Days Qty: 30 0RF Brilinta 90 mg Tablet 90 mg PO BID 30 Days Qty: 60 0RF Continued omega 4-qvr-yfr-fish oil [Fish Oil] 1,000 mg (120 mg-180 mg) capsule 1,000 mg PO QDAY Patient Comments: 1200 mg PO QDAY metformin 500 mg tablet extended release 24 hr 500 mg PO BID pantoprazole [Protonix] 40 mg tablet,delayed release (DR/EC) 40 mg PO DAILY Qty: 30 11RF ranolazine 500 mg tablet extended release 12 hr 500 mg PO BID Qty: 60 3RF aspirin 81 MG tablet 81 mg PO DAILY@0800 lorazepam 0.5 mg Tablet 0.5 mg PO BID PRN (Reason: Anxiety) pioglitazone 45 mg tablet 45 mg PO DAILY Patient Comments: Take 1 tablet by mouth once daily. ferrous sulfate 325 mg (65 mg iron) tablet 325 mg PO DAILY nitroglycerin 0.4 mg tablet, sublingual 0.4 mg SUBLINGUAL Q5M PRN (Reason: Chest Pain) Qty: 25 6RF Rx Instructions: take one tablet every 5-15 to not exceed 3 tablets atorvastatin 80 mg tablet 80 mg PO DAILY Qty: 90 3RF Hold Instructions: itching all over, no rash Discontinued pioglitazone [Actos] 30 mg Tablet 30 mg PO DAILY clopidogrel [Plavix] 75 mg tablet 75 mg PO DAILY Qty: 90 3RF Hold Instructions: itching all over, no rash Referrals / Follow Up: Nadir Abdalla MD [Primary Care Provider] - Disposition Disposition (needs filled in before D/C Order can be placed): Home, Self Care
--- NOTE | 2023-10-11 11:30 | DS.PCM_ITS ---
Providers Date of Admission: 10/09/23 Date of Discharge: 10/11/23 Primary Care Physician: Dr. Nadir Abdalla MD Consultations 10/09/23 21:38 Consult: Cardiology Routine Consulting Provider: Ez Hurst Reason for Consult: Chest Pain EMERGENT Consult: No MD Notified: Yes Date Notified: 10/09/23 Time Notified: 20:06 Method of Notification: ED Physician Initiated Reason For Visit: UNSTABLE ANGINA Diagnosis Discharge Diagnosis (1) Unstable angina: Status: Acute Code(s): I20.0 - Unstable angina Medications at Discharge Home Medications aspirin 81 mg tablet,delayed release 81 mg PO DAILY@0800 [employer] 09/13/13 omega 2-sjr-rhx-fish oil 1,000 mg (120 mg-180 mg) capsule (Fish Oil) 1,000 mg PO QDAY supplement 01/06/18 metformin 500 mg tablet,extended release 24 hr 500 mg PO BID 07/25/20 lorazepam 0.5 mg tablet 0.5 mg PO BID PRN Anxiety 05/23/22 ferrous sulfate 325 mg (65 mg iron) tablet 325 mg PO DAILY 06/28/22 pantoprazole 40 mg tablet,delayed release (Protonix) 40 mg PO DAILY #30 tabs 07/16/22 nitroglycerin 0.4 mg sublingual tablet 0.4 mg sublingual Q5M PRN Chest Pain #25 tabs 09/03/22 ranolazine 500 mg tablet,extended release,12 hr 500 mg PO BID #60 tabs 05/15/23 atorvastatin 80 mg tablet 80 mg PO DAILY cholesterol #90 tabs 07/02/23 pioglitazone 45 mg tablet 45 mg PO DAILY diabetes 10/09/23 carvedilol 3.125 mg tablet 3.125 mg PO BID 30 days #60 tabs 10/11/23 losartan 25 mg tablet 25 mg PO DAILY 30 days #30 tabs 10/11/23 ticagrelor 90 mg tablet (Brilinta) 90 mg PO BID 30 days #60 tabs 10/11/23 Hospital Course Operations None Procedures Cardiac catheterization, EKG, Transthoracic echo and - (Chest x-ray) Summary of Care Provided Minutes Spent on Discharge: 25 Hospital Course: Patient is a 68-year-old male who presented to [facility] ED on 10/09/2023 with worsening chest pain and shortness of breath. Short hospital course as noted below. Patient discharged home in stable condition on 10/11. . Unstable angina, history of CAD s/p stenting Presented with chest pain with radiation to left hand and mild shortness of br eath. EKG showed ST depressions in V5 and V6, otherwise sinus tachycardia with heart rate 105. Troponins negative. Last PCI with stenting was done in 07/2021. Stress test in 06/2023 was normal, showed preserved EF. TTE 10/09 showed EF 60%, normal diastolic function, mildly enlarged LA, aortic sclerosis with no stenosis, moderate mitral valve insufficiency. ? Cardiology followed. S/p left heart cath on 10/10 with RODDY x 1 to distal RCA. Continue aspirin, Brilinta, statin, Coreg, losartan on discharge. Will need Brilinta therapy for at least 1 year. Chronic medical conditions: ? Type 2 diabetes mellitus with hyperglycemia: Home regimen of metformin 500 mg twice daily, pioglitazone 45 mg daily. Glucose 285 on admit. Last A1c of 7.5% back in 2020, repeat A1c 7.3%. Treated with Lantus 10 units at night with sliding-scale insulin while inpatient. Okay to resume home regimen on discharg e. ? Mild normocytic anemia: Hemoglobin stable at baseline. Continue home iron supplement. ? Anxiety: Continue home Ativan 0.5 mg twice daily as needed. Total clinical time spent by myself addressing the patient's discharge needs: 35 minutes. Physical Exam Const alert, oriented x3, no apparent distress and average body habitus Constitutional Narrative: Pleasant elderly male, sitting up comfortably in bed, conversing normally, no acute distress. General Appearance: cooperative and comfortable HEENT normocephalic, head/scalp atraumatic, hearing grossly normal bilaterally, nasal mucous membranes and turbinates normal and moist oral mucous membranes Eyes PERRL, EOMs intact bilaterally and conjunctivae normal Neck full ROM, no lymphadenopathy and supple Lymph Lymphatic: no lymphadenopathy noted Chest inspection of chest normal Resp normal respiratory effort, normal air movement, no use of accessory muscles and clear to auscultation bilaterally Cardio regular rate, regular rhythm, no murmurs and peripheral pulses 2+ throughout GI normal to inspection, nondistended, normoactive bowel sounds, soft to palpation, non-tender and non-distended Back/Spine normal ROM Extremity normal to inspection, full ROM and no pedal edema Skin no rashes or lesions noted Neuro no focal motor deficits and no sensory deficits noted Speech: speech normal Psych mental status grossly normal Weight / BMI Weight Weight: 90.9 kg Body Mass Index (BMI) 28.7 ABG / Lab / Microbiology Data 10/11/23 03:46 10/11/23 03:46 Laboratory: Laboratory Results - last 24 hr 10/10/23 12:25: POC Glucose 147 H 10/10/23 16:21: POC Glucose 154 H 10/10/23 18:51: Hemoglobin A1c 7.3 H 10/10/23 21:46: POC Glucose 194 H 10/11/23 03:46: WBC 7.8, RBC 3.58 L, Hgb 10.7 L, Hct 32.6 L, MCV 91.1, MCH 29.9, MCHC 32.8, RDW Std Deviation 45.1 H, RDW Coeff of Megan 13.3, Plt Count 195, MPV 9.4, Sodium 139, Potassium 3.7, Chloride 108 H, Carbon Dioxide 23.0, Anion Gap 8, BUN 16, Creatinine 0.80, Estim Creat Clear Calc 96.49, Est GFR (MDRD) Af Amer 123, Est GFR (MDRD) Non-Af 102, BUN/Creatinine Ratio 20.1 H, Glucose 144 H, Calcium 8.7, Total Bilirubin 0.50, AST 15, ALT 25, Alkaline Phosphatase 79, Total Protein 6.8, Albumin 3.9, Globulin 2.9, Albumin/Globulin Ratio 1.3 10/11/23 06:44: POC Glucose 144 H Radiography Diagnostic Testing: Radiology Impression Echocardiogram 10/09/23 21:38 Interpretation Summary The estimated ejection fraction is 60 %. The left atrium is mildly enlarged. Aortic sclerosis, no stenosis. Moderate (2+) posteriorly directed mitral valve insufficiency. Ordering Physician: Gildardo Walton Referring Physician: Nadir Abdalla Performed By: Sally Quintana RDCS D/C Instructions Discharge Diet: No restrictions Weight Bearing Status: Full weight bearing Meaningful Use Info Meaningful Use Diagnoses (Choose all that apply): None applicable Discharge Plan Admission Admit Date/Time: 10/09/23 19:59 Primary Reason for Your Visit: chest pain Attending Provider: Foster Mayberry Primary Care Provider: Nadir Abdalla Consulting Providers: Ez Hurst; Gildardo Walton Instructions Additional Instructions / Restrictions: Please take medications as prescribed below. Follow-up with cardiology in the office in 2 to 4 weeks. Discharge Orders/Prescriptions Prescriptions: New carvedilol 3.125 mg Tablet 3.125 mg PO BID 30 Days Qty: 60 0RF losartan 25 mg Tablet 25 mg PO DAILY 30 Days Qty: 30 0RF Brilinta 90 mg Tablet 90 mg PO BID 30 Days Qty: 60 0RF Continued omega 6-qzo-jjw-fish oil [Fish Oil] 1,000 mg (120 mg-180 mg) capsule 1,000 mg PO QDAY Patient Comments: 1200 mg PO QDAY metformin 500 mg tablet extended release 24 hr 500 mg PO BID pantoprazole [Protonix] 40 mg tablet,delayed release (DR/EC) 40 mg PO DAILY Qty: 30 11RF ranolazine 500 mg tablet extended release 12 hr 500 mg PO BID Qty: 60 3RF aspirin 81 MG tablet 81 mg PO DAILY@0800 lorazepam 0.5 mg Tablet 0.5 mg PO BID PRN (Reason: Anxiety) pioglitazone 45 mg tablet 45 mg PO DAILY Patient Comments: Take 1 tablet by mouth once daily. ferrous sulfate 325 mg (65 mg iron) tablet 325 mg PO DAILY nitroglycerin 0.4 mg tablet, sublingual 0.4 mg SUBLINGUAL Q5M PRN (Reason: Chest Pain) Qty: 25 6RF Rx Instructions: take one tablet every 5-15 to not exceed 3 tablets atorvastatin 80 mg tablet 80 mg PO DAILY Qty: 90 3RF Hold Instructions: itching all over, no rash Discontinued pioglitazone [Actos] 30 mg Tablet 30 mg PO DAILY clopidogrel [Plavix] 75 mg tablet 75 mg PO DAILY Qty: 90 3RF Hold Instructions: itching all over, no rash Referrals / Follow Up: Nadir Abdalla MD [Primary Care Provider] - Disposition Disposition (needs filled in before D/C Order can be placed): Home, Self Care Charges/Coding Visit Charges Inpatient E&M: 88861 Disch Hosp
[2023-10-11] MEDS: Insulin Lispro 100 UNIT/ML INSULN.PEN SC (11:32)
--- NOTE | 2023-10-11 11:40 | CASEMGMT ---
TC to [facility], pt cost for brilinta is $47. RN CM into pt room, pt states this is a bit much for him, provided with savings card. Pt denies further needs.
[2023-10-11 11:53] LABS: Bedside Glucose 172 mg/dL (74-106)
[2023-10-11 13:17] VITALS: BP 110/62; PULSE 70; RESP 16; O2SAT 96
[2023-11-07 16:27] LABS: ACT Activated Clotting Time 266 sec (74-137)
[2023-11-07 16:27] LABS: ACT Activated Clotting Time 325 sec (74-137)
== END 2023-10-11 13:41 | disposition home or self-care (01) | DRG 324 ==
LOC: ED 20:05 → PCU 20:23
PROVIDERS: Internal Medicine Cardiovascular Disease; Admitting Provider Internal Medicine; Emergency Provider Emergency Medicine; PCP Family Medicine; Visit Provider Hospitalist
DX: T82.855A Stenosis of coronary artery stent, initial encounter (principal); I25.110 Atherosclerotic heart disease of native coronary artery with unstable angina pectoris; E11.40 Type 2 diabetes mellitus with diabetic neuropathy, unspecified; E11.65 Type 2 diabetes mellitus with hyperglycemia; D64.9 Anemia, unspecified; I10 Essential (primary) hypertension; I34.0 Nonrheumatic mitral (valve) insufficiency; E78.5 Hyperlipidemia, unspecified; F41.9 Anxiety disorder, unspecified; Y71.2 Prosthetic and other implants, materials and accessory cardiovascular devices associated with adverse incidents; N40.0 Benign prostatic hyperplasia without lower urinary tract symptoms; Z66 Do not resuscitate; Z79.82 Long term (current) use of aspirin; Z79.84 Long term (current) use of oral hypoglycemic drugs; Z79.899 Other long term (current) drug therapy; Z95.5 Presence of coronary angioplasty implant and graft
CPT/HCPCS: 36415; 71045; 80048; 80053; 80061; 82962; 83036; 83735; 83880; 84443; 84484; 85025; 85027; 85347; 85610; 85730; 92928; 92972; 93005; 93306; 93454; 93571; 94668; 99152; 99153; 99252; 99285; C1761; C1769; C1874; J7030; J7040; J7050; Q9967; A4216; C1725; C1887; C1894; C9600; G0463; J0153; J1327

== ENCOUNTER 2023-10-15 08:36 | Emergency (ER) | payer MEDICARE, SELFPAY ==
[2020-09-11 08:28] VITALS: BMI 29.2
[2023-10-15 08:36] VITALS: BP 172/86; PULSE 73; PULSE 77; RESP 14; RESP 16; TEMP 36.5; O2SAT 98; O2SAT 99; BMI 27.8
--- NOTE | 2023-10-15 08:55 | EKG12_ITS ---
Test Reason : CP Blood Pressure : / mmHG Vent. Rate : 075 BPM Atrial Rate : 075 BPM P-R Int : 132 ms QRS Dur : 080 ms QT Int : 374 ms P-R-T Axes : 032 007 -10 degrees QTc Int : 417 ms Normal sinus rhythm Nonspecific T changes Abnormal ECG Confirmed by Guerrero Ornelas ([id number]), graphic editor CODY YOON ([id number]) on 10/16/2023 8:01:19 AM Referred By: MANN/LIANET Confirmed By:Guerrero Ornelas
--- NOTE | 2023-10-15 08:57 | ED.VIS.CHEST ---
HPI History of Present Illness Chief Complaint: Chest Pain Informant: patient Onset/Context/Timing Onset: Days (3 to 4 days) Timing: Intermittent Quality: Positive for Sharp Location: Left Chest Narrative Narrative: Patient presents with intermittent sharp pain to the left chest. He was admitted to the hospital October 09 through the secondary to chest pain with EKG changes. He underwent a heart cath on the and had stent placement. Patient went to the cardiology office today who instructed him to come to the emergency room. Patient states he was discharged on Friday has been having intermittent pain since Friday. He does feel short of breath. He states the pain he had before his stents replaced was heavy and pressure-like. He raises concern about possible stent collapse as he states they had trouble with the stents they were putting in. [facility] Medical History Atherosclerotic heart disease of [place] coronary artery without angina pectoris (10/10/23) Bilateral carotid artery stenosis BPH (benign prostatic hyperplasia) COVID-19 (06/2021) DDD (degenerative disc disease) Elevated LFTs Essential (primary) hypertension Hyperlipidemia Sciatica Syncope (10/2021) Tremor of both hands Type 2 diabetes mellitus Home Medications aspirin 81 mg tablet,delayed release 81 mg PO DAILY@0800 [facility] 09/13/13 [History Last Taken 02/11/22] omega 8-[id number]-[id number]-fish oil 1,000 mg (120 mg-180 mg) capsule (Fish Oil) 1,000 mg PO QDAY supplement 01/06/18 [History Last Taken 12/29/21] metformin 500 mg tablet,extended release 24 hr 500 mg PO BID 07/25/20 [History Last Taken 02/10/22] lorazepam 0.5 mg tablet 0.5 mg PO BID PRN Anxiety 05/23/22 [History Last Taken Unknown] ferrous sulfate 325 mg (65 mg iron) tablet 325 mg PO DAILY 06/28/22 [History Last Taken Unknown] pantoprazole 40 mg tablet,delayed release (Protonix) 40 mg PO DAILY #30 tabs 07/16/22 [Rx Last Taken Unknown] nitroglycerin 0.4 mg sublingual tablet 0.4 mg sublingual Q5M PRN Chest Pain #25 tabs 09/03/22 [Rx Last Taken Unknown] ranolazine 500 mg tablet,extended release,12 hr 500 mg PO BID #60 tabs 05/15/23 [Rx Last Taken Unknown] atorvastatin 80 mg tablet 80 mg PO DAILY cholesterol #90 tabs 07/02/23 [Rx Last Taken Unknown] pioglitazone 45 mg tablet 45 mg PO DAILY diabetes 10/09/23 [History Last Taken Unknown] carvedilol 3.125 mg tablet 3.125 mg PO BID 30 days #60 tabs 10/11/23 [Rx Last Taken Unknown] losartan 25 mg tablet 25 mg PO DAILY 30 days #30 tabs 10/11/23 [Rx Last Taken Unknown] ticagrelor 90 mg tablet (Brilinta) 90 mg PO BID 30 days #60 tabs 10/11/23 [Rx Last Taken Unknown] Allergy/AdvReac Type Severity Reaction Status Date / Time fludrocortisone Allergy Severe ANGIOEDEMA Verified 10/15/23 08:38 [From [facility]] perfume AdvReac Other Verified 10/15/23 08:38 Family History Sister CAD (coronary artery disease) CVA (cerebral vascular accident) Diabetes Myocardial infarction Hx of CABG Mother Cancer Lung CA Surgical History History of cataract surgery History of coronary artery stent placement (07/23/21) History of hand surgery History of left heart catheterization (02/11/22) History of loop recorder (12/13/21) Hx of appendectomy Social History Smoking Status: Never smoker alcohol intake: never substance use type: does not use caffeine: No what type of physical activity do you participate in: none seatbelt use: always do you feel safe at home: Yes ROS ROS ED Constitutional Constitutional ED: Denies chills or fever(s) Eyes Eyes: Denies discharge from eye(s) ENT ENT ED: Denies discharge from eye(s), rhinorrhea or sore throat Cardiovascular Cardiovascular: Reports chest pain; Denies palpitations Respiratory/Chest Respiratory/Chest: Reports dyspnea; Denies cough Gastrointestinal Gastrointestinal: Denies abdominal pain, nausea or vomiting Genitourinary Genitourinary ED: Denies dysuria Musculoskeletal Musculoskeletal: Denies back pain or extremity pain Integumentary Denies Abrasions or rash Neurologic Neurologic: Denies headache(s) or weakness Psychiatric Psychiatric: Denies anxiety or depression Allergic/Immunologic Allergic/Immunologic ED: Denies lip swelling or urticaria EXAM Physical Exam Const Vital Signs: 10/15/23 08:36 10/15/23 08:36 10/15/23 08:36 Temperature 97.7 F L Temperature Source Temporal Pulse Rate 73 77 Respiratory Rate 14 16 Respiratory Effort Short of Breath Blood Pressure 172/86 H Blood Pressure Mean 114 Pulse Ox 99 98 Oxygen Delivery Method Room Air Room Air 10/15/23 08:58 10/15/23 10:17 10/15/23 10:43 Temperature Temperature Source Pulse Rate 65 58 L Respiratory Rate 14 18 Respiratory Effort Blood Pressure 128/69 H 126/70 H Blood Pressure Mean 88 88 Pulse Ox 94 96 Oxygen Delivery Method Room Air Room Air Room Air 10/15/23 11:39 Temperature 97.7 F L Temperature Source Pulse Rate 59 L Respiratory Rate 16 Respiratory Effort Blood Pressure 156/69 H Blood Pressure Mean 98 Pulse Ox 94 Oxygen Delivery Method Positive well nourished and well developed General Appearance ED: well developed HEENT Reports moist mucous membranes Eyes EOMs intact bilaterally Chest Wall inspection of chest normal and palpation of chest normal Resp normal respiratory effort and clear to auscultation bilaterally Cardio regular rate and regular rhythm GI soft to palpation and non-distended Extremity normal to inspection Neuro oriented x3 and no sensory deficits noted Sensorium / Orientation: alert Motor Exam: strength 5/5 throughout Psych mental status grossly normal Skin no rashes or lesions noted Heart Score History: Slightly/Non-Suspicious ECG: Nonspecific Repolarization Age: >/= 65 years Risk Factors: >/= 3 Risk Factors or History of CAD Troponin: >1 - <3 Normal Limit Score: 6 MDM MDM MDM Narrative Medical decision making narrative: Patient did take 1 baby aspirin this morning so 3 additional baby aspirin given this time. Patient placed on site monitor. IV line initiated. Labwork obtained to evaluate for leukocytosis, anemia, and electrolyte derangement. Chest x-ray obtained to evaluate for acute lung pathology, cardiac size, or mediastinal abnormality. History & Record Review Discussion w/independent historian: Patient Additional record(s) reviewed:: Prior inpatient record, Prior ED visit and Prior labs Lab Data Attestation: I reviewed the patient's lab results. Labs: Laboratory Results - last 24 hr 10/15/23 10/15/23 08:45 10:45 WBC 4.9 RBC 3.95 L Hgb 11.7 L Hct 35.9 L MCV 90.9 MCH 29.6 MCHC 32.6 RDW Std Deviation 43.1 RDW Coeff of Megan 13.1 Plt Count 197 MPV 9.5 Immature Gran % (Auto) 0.400 Neut % (Auto) 65.3 Lymph % (Auto) 18.5 L [place] % (Auto) 10.1 H Eos % (Auto) 5.1 H Baso % (Auto) 0.6 Absolute Neuts (auto) 3.2 Absolute Lymphs (auto) 0.91 Nucleated RBC % 0 D-Dimer Quant (PE/DVT) 0.56 H* Sodium 137 Potassium 4.6 Chloride 103 Carbon Dioxide 24.0 Anion Gap 10 BUN 19 H Creatinine 1.07 Estim Creat Clear Calc 71.85 Est GFR (MDRD) Af Amer 88 Est GFR (MDRD) Non-Af 73 BUN/Creatinine Ratio 17.8 Glucose 265 H Calcium 9.3 Troponin I High Sens 119 H 101 H Radiography Chest X-Ray - ED: 1 View, Read by ED Physician, Chronic Changes and No Infiltrates Diagnostic Testing: Clinical Impression(s) from Imaging Studies Chest X-Ray 10/15/23 09:05 IMPRESSION: No acute abnormality is seen. Stable examination. Electronically Signed: Robert Mandujano MD at 9:27 EST Reading Location ID and State: [address] [place] [address] , Service support , EKG Initial EKG: Attestation: I personally reviewed and interpreted this EKG as follows: Interpretation: Sinus Rhythm (Sinus at 75 with no acute ischemia.) Treatment and Re-Evaluation :: CBC was normal white count 4.9 with normal differential. Hemoglobin is 11.7. This is improved when compared to his priors. Chemistry studies unremarkable other than a glucose of 265. His D-dimer is 0.56, normal when age-adjusted. His initial troponin is 119 with a 2-hour repeat troponin of 101. I do expect these to be elevated as he just had cardiac intervention on the ninth. Portable chest x-ray reveals chronic changes with no evidence of infiltrate per my interpretation. Radiology interpretation also reviewed. I spoke with Dr. Ornelas, on-call for cardiology. He feels that if this were related to any kind of stent collapse or acute cardiac cause he should have elevation in troponins, EKG changes, and pain more consistent with cardiac etiology such as pressure and heaviness. He recommended patient take Tylenol for pain and follow-up. This was relayed to the patient. Return instructions are given. Discharge Plan Triage Chief Complaint: Chest Pain ED Provider: Ivy Toribio Dx/Rx/DC Orders Clinical Impression: Chest pain Instructions: ED Chest Pain, Uncertain Cause Prescriptions: No Action omega 7-rpo-pmf-fish oil [Fish Oil] 1,000 mg (120 mg-180 mg) capsule 1,000 mg PO QDAY Patient Comments: 1200 mg PO QDAY metformin 500 mg tablet extended release 24 hr 500 mg PO BID pantoprazole [Protonix] 40 mg tablet,delayed release (DR/EC) 40 mg PO DAILY Qty: 30 11RF ranolazine 500 mg tablet extended release 12 hr 500 mg PO BID Qty: 60 3RF aspirin 81 MG tablet 81 mg PO DAILY@0800 lorazepam 0.5 mg Tablet 0.5 mg PO BID PRN (Reason: Anxiety) pioglitazone 45 mg tablet 45 mg PO DAILY Patient Comments: Take 1 tablet by mouth once daily. carvedilol 3.125 mg Tablet 3.125 mg PO BID 30 Days Qty: 60 0RF losartan 25 mg Tablet 25 mg PO DAILY 30 Days Qty: 30 0RF Brilinta 90 mg Tablet 90 mg PO BID 30 Days Qty: 60 0RF ferrous sulfate 325 mg (65 mg iron) tablet 325 mg PO DAILY nitroglycerin 0.4 mg tablet, sublingual 0.4 mg SUBLINGUAL Q5M PRN (Reason: Chest Pain) Qty: 25 6RF Rx Instructions: take one tablet every 5-15 to not exceed 3 tablets atorvastatin 80 mg tablet 80 mg PO DAILY Qty: 90 3RF Hold Instructions: itching all over, no rash Primary Care Provider: Nadir Abdalla Referrals: Ez Hurst MD [Med Staff - Active Staff] - 3-5 Days if not improving Nadir Abdalla MD [Primary Care Provider] - Disposition Disposition: Home, Self Care
[2023-10-15] MEDS: Aspirin 81 MG TAB.CHEW 243 MG PO (09:03)
--- NOTE | 2023-10-15 09:05 | RAD_ITS ---
STUDY: X-RAY CHEST REASON FOR EXAM: Male, 68 years old. Chest pain TECHNIQUE: Single AP portable view of the chest. COMPARISON: Comparison is made with prior study dated October 09, 2023. FINDINGS: EKG electrodes are seen. The lungs are clear and expanded. There is no demonstrated pleural abnormality. Normal size heart. A loop recorder device is seen over the left cardiac border. Normal mediastinum and bonnie. Normal visualized pulmonary arteries. There is atherosclerotic calcification of the aortic arch with tortuosity. There are diffuse degenerative changes of the visualized thoracic spine. Normal visualized ribs, clavicles, and shoulders. There is no demonstrated abnormality of the visualized soft tissue structures of the upper abdomen. RAD/Chest 1 View (Portable) IMPRESSION: No acute abnormality is seen. Stable examination. Electronically Signed: Robert Mandujano MD at 9:27 EST ,
[2023-10-15 09:10] LABS: Absolute Lymphocyte Count 0.91 X10^3/uL (0.83-4.51); Absolute Neutrophil Count 3.2 X10^3/uL (2.0-7.7); Basophil# 0.03 X10^3/uL; Basophil% 0.6 % (0-1); Eosinophil# 0.25 X10^3/uL; Eosinophils% 5.1 % (0-5); Hematocrit 35.9 % (40-54); Hemoglobin 11.7 g/dL (13.0-16.5); Lymphocyte # 0.91 X10^3/ul (0.83-4.51); Lymphocyte % 18.5 % (19-41); Mean Corp Hgb Conc 32.6 g/dL (32-36); Mean Corpuscular Hgb 29.6 pg (27.0-32.0); Mean Corpuscular Volume 90.9 fL (80-94); Mean Platelet Vol. 9.5 fl (6.2-12.0); Monocyte% 10.1 % (0-10); NRBC Flagged by Analyzer 0 % (0-5); Neutrophil # 3.22 X10^3/uL (2.7-7.7); Neutrophil % 65.3 % (47-70); Platelet Count 197 K/mm3 (150-450); RBC Distribution Width CV 13.1 % (11.6-14.6); RBC Distribution Width SD 43.1 fl (35.1-43.9); Red Blood Count 3.95 M/mm3 (4.6-6.2); White Blood Count 4.9 K/mm3 (4.4-11.0)
[2023-10-15 09:27] LABS: Anion Gap 10 (5-15); BUN 19 mg/dL (7-18); BUN/Creat Ratio 17.8 RATIO (10-20); Calcium,Total 9.3 mg/dL (8.5-10.1); Chloride 103 mmol/L (98-107); Creatinine, Serum 1.07 mg/dL (0.70-1.30); EST Glomerular Filtration Rate 73 mL/min (>60); Est Glom Filt Rate - Afr Amer 88 mL/min (>60); Estimated Creatinine Clearance 71.85 ml/min; Glucose 265 mg/dL (74-106); Potassium 4.6 mmol/L (3.5-5.1); Sodium Level 137 mmol/L (136-145); Troponin-I HS (w/2H Reflex) 119 pg/mL (3.0-78.0)
[2023-10-15 09:36] LABS: D-Dimer Quantitative (DVT/PE) 0.56 FEU/ug/m (0.27-0.49)
--- OUTSIDE RECORDS SUMMARY | 2023-10-15 09:37 | XMS RPT_ITS | CCD ---
Author Name Unknown Address [email or web address] [place] [address] Organization [facility] Care Team Providers Care Bench Technician Name Role Phone Andrew Patel Y Unavailable Unavailable MD Liya, Jd S Unavailable Nidhi RN, Beulah Ye Unavailable Unavailable Nidhi MODI, Beulah Ye Unavailable Unavailable RIAN Bell, Griselda Gary Unavailable Unavailjuan Terrell RN, Beulah A Unavailable Unavailable RIAN Bell, Griselda Gary Unavailable UnavailSELENE Mathew Unavailable Unavailable SELENE WILBURN Unavailable Unavailable Nidhi MODI, Beulah Ye Unavailable Unavailable RIAN Bell, Griselda Gary Unavailable UnavailAndrew Barone Unavailable Unavailable Nadir Grady MD Primary Care Provider [facility], Keti Unavailable [facility], Karen Unavailable Yolanda Dean ([place]) Unavailable Nadir Grady MD Primary Care Provider [facility], Keti Unavailable [facility], Karen Unavailable Yolanda Dean ([place] Unavailable Nadir Grady MD Primary Care Provider [facility], Keti Unavailable [facility], Karen Unavailable Yolanda Dean ([place] Unavailable Nadir Grady MD Primary Care Provider [facility], Keti Unavailable [facility], Karen Unavailable Yolanda Dean ([place] Unavailable HANY JOHNSON Attending Unavaila THAI Williamson Referring Unavailable YSABEL, NADIR A Primary Care Unavailable Yolanda Dean ([place] Unavailable Yolanda Jones Unavailable [phone] [facility], Keti Unavailable YSABEL, NADIR A Primary Care Unavailable YSABEL, NADIR A Primary Care Unavailable YSABEL, NADIR A Primary Care Unavailable YSABEL, NADIR A Primary Care Unavailable MARTHA BOSTON Referring Unavailable YSABEL, NADIR A Primary Care Unavailable MARTHA BOSTON Referring Unavailable MARTHA BOSTON Attending Unavailable JENNA JIM Attending Unavailable YSABEL, NADIR A Primary Care Unavailable YSABEL, NADIR A Primary Care Unavailable YSABEL, NADIR A Primary Care Unavailable Jennifer Pavon Attending Unavailable YSABEL, NADIR A Primary Care [...] [PERFUMES] drug allergy 01-20-2012 Other: See Comments [facility] Work Phone: (20 sources) Fludrocortisone; Translations: [FLUDROCORTISONE ] Drug Allergy 04-25-[address] 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] Onset: 01-07-2017 01-07-2017 Episodic Other aftercare (20 sources) Patient encounter status; Translations: [Other residential (current) drug therapy] Onset: 03-02-2019 11-08-2021 Episodic [...] dermatitis, unspecified] Onset: 08-04-2015 10-03-2016 Episodic Other male genital disorders (20 sources) Disorder of prostate; Translations: [Disorder of prostate, unspecified] Onset: 10-03-2016 10-03-2016 Episodic Other male genital disorders (1 source) Disorder of prostate, unspecified; Translations: [Disorder of prostate] Onset: 10-03-2016 Episodic Other non-traumatic joint disorders (20 sources) [...] 97.81 [degF] Fer Merrill APRN.CNP Work Phone: [facility] 06-26-2023 09:26-0400 Body weight 84.46 kg Fer Merrill APRN.CNP Work Phone: [facility] 06-26-2023 09:26-0400 Diastolic blood pressure 80 mm[Hg] Fer Merrill APRN.CNP Work Phone: [facility] 06-26-2023 09:26-0400 Heart rate 72 /min Fer Merrill APRN.CNP Work Phone: [facility] 06-26-2023 09:26-0400 Respiratory rate 16 /min Fer Merrill APRN.CNP Work Phone: [facility] 06-26-2023 09:26-0400 SaO2% (BldA) [Mass fraction] 97 % Fer Merrill APRN.CNP Work Phone: [facility] 06-26-2023 09:26-0400 Systolic blood pressure 142 mm[Hg] Fer Merrill LOG CHAIN FEEDER.FINANCIAL AGENT Work Phone: [facility] 04-01-2023 07:38-0400 Body temperature 97.5 [degF] Blanca Athy PA-C Work Phone: [facility] 04-01-2023 07:38-0400 Body weight 78.93 kg Blanca Athy PA-C Work Phone: [facility] 04-01-2023 07:38-0400 Diastolic blood pressure 74 mm[Hg] Blanca Athy PA-C Work Phone: [facility] 04-01-2023 07:38-0400 Heart rate 68 /min Blanca Athy PA-C Work Phone: [facility] 04-01-2023 07:38-0400 Respiratory rate 16 /min Blanca Athy PA-C Work Phone: [facility] 04-01-2023 07:38-0400 SaO2% (BldA) [Mass fraction] 98 % Blanca Athy PA-C Work Phone: [facility] 04-01-2023 07:38-0400 Systolic blood pressure 142 mm[Hg] Blanca Athy PA-C Work Phone: [facility] 03-10-2023 12:40-0400 Body temperature 98.01 [degF] Ute Shine LOG CHAIN FEEDER.FINANCIAL AGENT Work Phone: [facility] 03-10-2023 12:40-0400 Body weight 79.29 kg Ute Rl LOG CHAIN FEEDER.FINANCIAL AGENT Work Phone: [facility] 03-10-2023 12:40-0400 Diastolic blood pressure 78 mm[Hg] Ute Rl LOG CHAIN FEEDER.FINANCIAL AGENT Work Phone: [facility] 03-10-2023 12:40-0400 Heart rate 71 /min Ute Rl LOG CHAIN FEEDER.FINANCIAL AGENT Work Phone: [facility] 03-10-2023 12:40-0400 Respiratory rate 18 /min Ute Shine LOG CHAIN FEEDER.FINANCIAL AGENT Work Phone: [facility] 03-10-2023 12:40-0400 SaO2% (BldA) [Mass fraction] 99 % Ute Shine LOG CHAIN FEEDER.FINANCIAL AGENT Work Phone: [facility] 03-10-2023 12:40-0400 Systolic blood pressure 136 mm[Hg] Ute Shine LOG CHAIN FEEDER.FINANCIAL AGENT Work Phone: [facility] 11-28-2022 12:33-0400 Body height 175 cm Martha Boston PA-C Work Phone: [facility] 11-28-2022 12:33-0400 Body temperature 98.1 [degF] Martha Boston PA-C Work Phone: [facility] 11-28-2022 12:33-0400 Body weight 78.47 kg Martha Boston PA-C Work Phone: [facility] 11-28-2022 12:33-0400 Diastolic blood pressure 66 mm[Hg] Martha Boston PA-C Work Phone: [facility] 11-28-2022 12:33-0400 Heart rate 66 /min Martha Boston PA-C Work Phone: [facility] 11-28-2022 12:33-0400 Respiratory rate 16 /min Martha Boston PA-C Work Phone: [facility] 11-28-2022 12:33-0400 Systolic blood pressure 136 mm[Hg] Martha Boston PA-C Work Phone: [facility] 11-21-2022 09:39-0400 Body temperature 97.5 [degF] Jenna Jim LOG CHAIN FEEDER.FINANCIAL AGENT Work Phone: [facility] 11-21-2022 09:39-0400 Body weight 79.92 kg Jenna Dakeyahausen LOG CHAIN FEEDER.FINANCIAL AGENT Work Phone: [facility] 11-21-2022 09:39-0400 Diastolic blood pressure 70 mm[Hg] Jenna Dahlhausen LOG CHAIN FEEDER.FINANCIAL AGENT Work Phone: [facility] 11-21-2022 09:39-0400 Heart rate 73 /min Jenna Dahlhausen LOG CHAIN FEEDER.FINANCIAL AGENT Work Phone: [facility] 11-21-2022 09:39-0400 Respiratory rate 18 /min Jenna Dahlhausen LOG CHAIN FEEDER.FINANCIAL AGENT Work Phone: [facility] 11-21-2022 09:39-0400 SaO2% (BldA) [Mass fraction] 98 % Jenna Dahlhausen LOG CHAIN FEEDER.FINANCIAL AGENT Work Phone: [facility] 11-21-2022 09:39-0400 Systolic blood pressure 115 mm[Hg] Jenna Dahlhausen LOG CHAIN FEEDER.FINANCIAL AGENT Work Phone: [facility] 11-12-2022 11:29-0400 Body temperature 97.3 [degF] Fer Garfield LOG CHAIN FEEDER.FINANCIAL AGENT Work Phone: [facility] 11-12-2022 11:29-0400 Body weight 80.83 kg Fer Garfield LOG CHAIN FEEDER.FINANCIAL AGENT Work Phone: [facility] 11-12-2022 11:29-0400 Diastolic blood pressure 78 mm[Hg] Fer Garfield LOG CHAIN FEEDER.FINANCIAL AGENT Work Phone: [facility] 11-12-2022 11:29-0400 Heart rate 86 /min Fer Garfield LOG CHAIN FEEDER.FINANCIAL AGENT Work Phone: [facility] 11-12-2022 11:29-0400 Respiratory rate 18 /min Fer Garfield LOG CHAIN FEEDER.FINANCIAL AGENT Work Phone: [facility] 11-12-2022 11:29-0400 SaO2% (BldA) [Mass fraction] 97 % Fer Garfield LOG CHAIN FEEDER.FINANCIAL AGENT Work Phone: [facility] 11-12-2022 11:29-0400 Systolic blood pressure 142 mm[Hg] Fer Garfield LOG CHAIN FEEDER.FINANCIAL AGENT Work Phone: [facility] 10-29-2022 16:10-0500 Body height 177.8 cm Jennifer Savanah PA-C Work Phone: [facility] 10-29-2022 16:10-0500 Body temperature 97.9 [degF] Jennifer [place] PA-C Work Phone: [facility] 10-29-2022 16:10-0500 Body weight 81.19 kg Jennifer Savanah PA-C Work Phone: [facility] 10-29-2022 16:10-0500 Diastolic blood pressure 64 mm[Hg] Jennifer [place] PA-C Work Phone: [facility] 10-29-2022 16:10-0500 Heart rate 82 /min Jennifer [place] PA-C Work Phone: [facility] 10-29-2022 16:10-0500 SaO2% (BldA) [Mass fraction] 96 % Jennifer Savanah PA-C Work Phone: [facility] 10-29-2022 16:10-0500 Systolic blood pressure 124 mm[Hg] Jennifer Savanah PA-C Work Phone: [facility] 10-14-2022 12:30-0500 Diastolic blood pressure 81 mm[Hg] Thai Santiago MD Work Phone: [facility] 10-14-2022 12:30-0500 Heart rate 82 /min Thai Santiago MD Work Phone: [facility] 10-14-2022 12:30-0500 Respiratory rate 20 /min Thai Santiago MD Work Phone: [facility] 10-14-2022 12:30-0500 SaO2% (BldA) [Mass fraction] 97 % Thai Santiago MD Work Phone: [facility] 10-14-2022 12:30-0500 Systolic blood pressure 175 mm[Hg] Thai Santiago MD Work Phone: [facility] 10-14-2022 11:55-0500 Body temperature 97.5 [degF] Thai Santiago MD Work Phone: [facility] 10-14-2022 11:05-0500 Body height 177.8 cm Thai Snatiago MD Work Phone: [facility] 10-14-2022 11:05-0500 Body weight 78.93 kg Thai Santiago MD Work Phone: [facility] 10-05-2022 11:43-0500 Body weight 78.93 kg Nadir Grady MD Work Phone: [facility] 10-05-2022 11:43-0500 Diastolic blood pressure 68 mm[Hg] Nadir Grady MD Work Phone: [facility] 10-05-2022 11:43-0500 Heart rate 77 /min Nadir Grady MD Work Phone: [facility] 10-05-2022 11:43-0500 Respiratory rate 16 /min Nadir Grady MD Work Phone: [facility] 10-05-2022 11:43-0500 SaO2% (BldA) [Mass fraction] 96 % Nadir Grady MD Work Phone: [facility] 10-05-2022 11:43-0500 Systolic blood pressure 110 mm[Hg] Nadir Grady MD Work Phone: [facility] 09-23-2022 13:25-0500 Body temperature 97.81 [degF] Miladys Praisler-Wood LOG CHAIN FEEDER.FINANCIAL AGENT Work Phone: [facility] 09-23-2022 13:25-0500 Body weight 81.1 kg Miladys Praisler-Wood LOG CHAIN FEEDER.FINANCIAL AGENT Work Phone: [facility] 09-23-2022 13:25-0500 Diastolic blood pressure 72 mm[Hg] Miladys Praisler-Wood LOG CHAIN FEEDER.FINANCIAL AGENT Work Phone: [facility] 09-23-2022 13:25-0500 Heart rate 75 /min Miladys Praisler-Wood LOG CHAIN FEEDER.FINANCIAL AGENT Work Phone: [facility] 09-23-2022 13:25-0500 Respiratory rate 21 /min Miladys Praisler-Wood LOG CHAIN FEEDER.FINANCIAL AGENT Work Phone: [facility] 09-23-2022 13:25-0500 SaO2% (BldA) [Mass fraction] 98 % Miladys Praisler-Wood LOG CHAIN FEEDER.FINANCIAL AGENT Work Phone: [facility] 09-23-2022 13:25-0500 Systolic blood pressure 152 mm[Hg] Miladys Praisler-Wood LOG CHAIN FEEDER.FINANCIAL AGENT Work Phone: [facility] 09-19-2022 15:25-0500 Body temperature 97.7 [degF] Jenna Dahlhausen LOG CHAIN FEEDER.FINANCIAL AGENT Work Phone: [facility] 09-19-2022 15:25-0500 Body weight 78.65 kg Jenna Dahlhausen LOG CHAIN FEEDER.FINANCIAL AGENT Work Phone: [facility] 09-19-2022 15:25-0500 Diastolic blood pressure 82 mm[Hg] Jenna Dahlhausen LOG CHAIN FEEDER.FINANCIAL AGENT Work Phone: [facility] 09-19-2022 15:25-0500 Heart rate 76 /min Jenna Dahlhausen LOG CHAIN FEEDER.FINANCIAL AGENT Work Phone: [facility] 09-19-2022 15:25-0500 Respiratory rate 16 /min Jenna Dahlhausen LOG CHAIN FEEDER.FINANCIAL AGENT Work Phone: [facility] 09-19-2022 15:25-0500 SaO2% (BldA) [Mass fraction] 95 % Jenna Dahlhausen LOG CHAIN FEEDER.FINANCIAL AGENT Work Phone: [facility] 09-19-2022 15:25-0500 Systolic blood pressure 128 mm[Hg] Jenna Dahlhausen LOG CHAIN FEEDER.FINANCIAL AGENT Work Phone: [facility] 08-21-2022 09:03-0500 Body weight 78.02 kg Nadir Grady MD Work Phone: [facility] 08-21-2022 09:03-0500 Diastolic blood pressure 74 mm[Hg] Nadir Grady MD Work Phone: [facility] 08-21-2022 09:03-0500 Heart rate 76 /min Nadir Grady MD Work Phone: [facility] 08-21-2022 09:03-0500 Respiratory rate 16 /min Nadir Grady MD Work Phone: [facility] 08-21-2022 09:03-0500 Systolic blood pressure 128 mm[Hg] Nadir Grady MD Work Phone: [facility] 08-05-2022 12:56-0500 Body height 177.8 cm Mike Lucero MD Work Phone: [facility] 08-05-2022 12:56-0500 Body weight 77.11 kg Mike Lucero MD Work Phone: [facility] 08-05-2022 12:56-0500 Diastolic blood pressure 79 mm[Hg] Mike Lucero MD Work Phone: [facility] 08-05-2022 12:56-0500 Heart rate 73 /min Mike Lucero MD Work Phone: [facility] 08-05-2022 12:56-0500 Respiratory rate 18 /min Mike Lucero MD Work Phone: [facility] 08-05-2022 12:56-0500 Systolic blood pressure 159 mm[Hg] Mike Lucero MD Work Phone: [facility] 07-30-2022 15:28-0500 Body weight 77.11 kg Gamal Mathis APRN.FINANCIAL AGENT Work Phone: [facility] 07-30-2022 15:28-0500 Diastolic blood pressure 70 mm[Hg] Gamal Mathis APRN.FINANCIAL AGENT Work Phone: [facility] 07-30-2022 15:28-0500 Heart rate 78 /min Gamal Mathis LOG CHAIN FEEDER.FINANCIAL AGENT Work Phone: [facility] 07-30-2022 15:28-0500 Respiratory rate 16 /min Gamal Mathis LOG CHAIN FEEDER.FINANCIAL AGENT Work Phone: [facility] 07-30-2022 15:28-0500 Systolic blood pressure 136 mm[Hg] Gamal Mathis LOG CHAIN FEEDER.FINANCIAL AGENT Work Phone: [facility] 06-27-2022 09:25-0400 Body height 177.8 cm Thai Santiago MD Work Phone: [facility] 06-27-2022 09:25-0400 Body temperature 97.39 [degF] Thai Santiago MD Work Phone: [facility] 06-27-2022 09:25-0400 Body weight 71.67 kg Thai Santiago MD Work Phone: [facility] 06-27-2022 09:25-0400 Diastolic blood pressure 62 mm[Hg] Thai Santiago MD Work Phone: [facility] 06-27-2022 09:25-0400 Heart rate 80 /min Thai Santiago MD Work Phone: [facility] 06-27-2022 09:25-0400 SaO2% (BldA) [Mass fraction] 97 % Thai Santiago MD Work Phone: [facility] 06-27-2022 09:25-0400 Systolic blood pressure 110 mm[Hg] Thai Santiago MD Work Phone: [facility] 06-25-2022 07:59-0400 Body temperature 98.71 [degF] Martha ABRAHAMC Work Phone: [facility] 06-25-2022 07:59-0400 Body weight 70.76 kg Martha Boston PA-C Work Phone: [facility] 06-25-2022 07:59-0400 Diastolic blood pressure 50 mm[Hg] Martha DENISE-C Work Phone: [facility] 06-25-2022 07:59-0400 Heart rate 76 /min Martha ABRAHAMC Work Phone: [facility] 06-25-2022 07:59-0400 Respiratory rate 16 /min Martha Boston PA-C Work Phone: [facility] 06-25-2022 07:59-0400 Systolic blood pressure 80 mm[Hg] Martha Boston PA-C Work Phone: [facility] 05-13-2022 07:45-0400 Body temperature 98.1 [degF] Martha Boston PA-C Work Phone: [facility] 05-13-2022 07:45-0400 Body weight 73.48 kg Martha Boston PA-C Work Phone: [facility] 05-13-2022 07:45-0400 Diastolic blood pressure 66 mm[Hg] Martha Boston PA-C Work Phone: [facility] 05-13-2022 07:45-0400 Heart rate 72 /min Martha Boston PA-C Work Phone: [facility] 05-13-2022 07:45-0400 Respiratory rate 16 /min Martha Boston PA-C Work Phone: [facility] 05-13-2022 07:45-0400 Systolic blood pressure 138 mm[Hg] Martha Boston PA-C Work Phone: [facility] 04-25-2022 13:14-0400 Body temperature 97.81 [degF] Rin Gagnon LOG CHAIN FEEDER.FINANCIAL AGENT Work Phone: [facility] 04-25-2022 13:14-0400 Body weight 79.52 kg Rin Latiferich LOG CHAIN FEEDER.FINANCIAL AGENT Work Phone: [facility] 04-25-2022 13:14-0400 Diastolic blood pressure 70 mm[Hg] Rin Latiferich LOG CHAIN FEEDER.FINANCIAL AGENT Work Phone: [facility] 04-25-2022 13:14-0400 Heart rate 86 /min Rin Diederich LOG CHAIN FEEDER.FINANCIAL AGENT Work Phone: [facility] 04-25-2022 13:14-0400 Respiratory rate 16 /min Rin Latifbobby LOG CHAIN FEEDER.FINANCIAL AGENT Work Phone: [facility] 04-25-2022 13:14-0400 SaO2% (BldA) [Mass fraction] 97 % Rin Gagnon LOG CHAIN FEEDER.FINANCIAL AGENT Work Phone: [facility] 04-25-2022 13:14-0400 Systolic blood pressure 109 mm[Hg] Rin Latifbobby LOG CHAIN FEEDER.FINANCIAL AGENT Work Phone: [facility] 04-19-2022 08:09-0400 Body temperature 98.2 [degF] Martha Boston PA-C Work Phone: [facility] 04-19-2022 08:09-0400 Body weight 79.83 kg Martha Boston PA-C Work Phone: [facility] 04-19-2022 08:09-0400 Diastolic blood pressure 68 mm[Hg] Martha Boston PA-C Work Phone: [facility] 04-19-2022 08:09-0400 Heart rate 96 /min Martha Boston PA-C Work Phone: [facility] 04-19-2022 08:09-0400 Respiratory rate 18 /min Martha Boston PA-C Work Phone: [facility] 04-19-2022 08:09-0400 Systolic blood pressure 118 mm[Hg] Martha Boston PA-C Work Phone: [facility] 02-07-2022 07:50-0400 Body temperature 97.81 [degF] Jenna Lamhausen LOG CHAIN FEEDER.FINANCIAL AGENT Work Phone: [facility] 02-07-2022 07:50-0400 Body weight 78.93 kg Jenna Lamhausen LOG CHAIN FEEDER.FINANCIAL AGENT Work Phone: [facility] 02-07-2022 07:50-0400 Diastolic blood pressure 60 mm[Hg] Jenna Dahlhausen LOG CHAIN FEEDER.FINANCIAL AGENT Work Phone: [facility] 02-07-2022 07:50-0400 Heart rate 83 /min Jenna Dahlhausen LOG CHAIN FEEDER.FINANCIAL AGENT Work Phone: [facility] 02-07-2022 07:50-0400 Respiratory rate 18 /min Jenna Dahlhausen LOG CHAIN FEEDER.FINANCIAL AGENT Work Phone: [facility] 02-07-2022 07:50-0400 SaO2% (BldA) [Mass fraction] 99 % Jnena Dahlhausen LOG CHAIN FEEDER.FINANCIAL AGENT Work Phone: [facility] 02-07-2022 07:50-0400 Systolic blood pressure 122 mm[Hg] Jenna Dahlhausen LOG CH[facility] FEEDER[facility] Work Phone: [facility] 02-07-2017 09:55-0400 BMI (Body Mass Index) 26.78 kg/m2 MD [facility] Work Phone: 02-07-2017 09:55-0400 BP Diastolic 62 mm[Hg] MD [facility] Work Phone: 02-07-2017 09:55-0400 BP Systolic 108 mm[Hg] Jd Kern MD [facility] Work Phone: 02-07-2017 09:55-0400 Height 180.34 cm MD [facility] Work Phone: 02-07-2017 09:55-0400 Pulse (Heart Rate) 78 /min MD [facility] Work Phone: 02-07-2017 09:55-0400 Respiratory Rate 18 /min MD [facility] Work Phone: 02-07-2017 09:55-0400 Weight 87.09 kg Jd Kern MD [facility] Work Phone: 01-08-2017 14:17-0400 Heart rate 81 /min [facility] Work Phone: 01-08-2017 13:55-0400 BMI (Body Mass Index) 27.05 kg/m2 Beulah Terrell RN [facility] Work Phone: 01-08-2017 13:55-0400 Body weight 88 kg Griselda Bell RN [facility] Work Phone: 01-08-2017 13:55-0400 BP Diastolic 60 mm[Hg] Beulah Terrell RN [facility] Work Phone: 01-08-2017 13:55-0400 BP Systolic 100 mm[Hg] Beulah Terrell RN [facility] Work Phone: 01-08-2017 13:55-0400 Height 180.34 cm Beulah Terrell RN [facility] Work Phone: 01-08-2017 13:55-0400 Pulse (Heart Rate) 81 /min Beulah Terrell RN [facility] Work Phone: 01-08-2017 13:55-0400 Respiratory Rate 20 /min Beulah Terrell RN [facility] Work Phone: 01-08-2017 13:55-0400 Weight 88 kg Beulah Terrell RN [facility] Work Phone: Encounters Encounter Date Encounter Type Care Provider Facility Start: 10-14-2023 ambulatory Nadir valladares MD Work Phone: [facility] Start: 10-11-2023 Chart abstracting Nadir pope MD Work Phone: [facility] Procedures Date Procedure Procedure Detail Performing Clinician [...] Ct abdomen & pelvis w/contrast material Martha Boston PA-C Work Phone: Start: 07-09-2022 Ct thorax w/contrast material Martha pichardo PA-C Work Phone: Start: 07-01-2022 Us abdominal real time w/image limited Martha Boston PA-C Work Phone: Start: 05-13-2022 INFLUENZA SEASONAL QUADRIVALENT HIGH DOSE AGE 65+ Martha Boston PA-C Work Phone: Start: 04-17-2022 Lipid panel [facility] [...] Jd Kern MD Start: 01-08-2017 End: 02-07-2017 [employer]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 Start: 10-14-2032 COLORECTAL CANCER SCREENING COLORECTAL CANCER SCREENING [facility] Start: 10-14-2032 Screening for malign ant neoplasm of colon [facility] Start: 03-01-2031 Urine microalbumin profile [facility] Start: 10-18-2029 Urine microalbumin profile DTA P,TDAP,TD (3 - Td or Tdap) [facility] Start: 11-02-2026 PROSTATE CANCER SCRE ENING DISCUSSION PROSTATE CANCER SCREENING DISCUSSION [facility] Start: 09-03-2024 BP Controlled (<130/80) BP Controlle d (<130/80) [facility] Start: 09-02-2024 Glaucoma screening Dilated Retinal E xam [facility] Start: 06-17-2024 Annual PCP Team Maternal Child Nurse cielo Disease Visit Annual PCP Team Chronic Disease Visit [facility] Start: 06-17-2024 BP Controlled (<130/80) BP Controlle d (<130/80) [facility] Start: 06-17-2024 Hepatitis B surface antibody level LDL Cholesterol [facility] Start: 02-18-2024 BP CONTROLLED (<130/80) BP CONTROLLE D (<130/80) [facility] Start: 12-17-2023 Hemoglobin A1c measurement HbA1C [facility] Start: 12-17-2023 Hemoglobin A1c/Hemoglobin.total in Blood HbA1C [facility] Start: 11-29-2023 ANNUAL PCP TEAM TABLET COATER CIELO DISEASE VISIT ANNUAL PCP TEAM CHRONIC DISEASE VISIT [facility] Start: 11-29-2023 Hepatitis B screening URINE AL BUMIN:CREATININE RATIO [facility] Start: 11-29-2023 Hepatitis B surface antibody level LDL CHOLESTEROL [facility] Start: 11-22-2023 BP CONTROLLED (<130/80) BP CONTROLLE D (<130/80) [facility] Start: 10-29-2023 BP CONTROLLED (<130/80) BP CONTROLLE D (<130/80) [facility] Start: 10-14-2023 Colonoscopy COLONOSCOPY [facility] Start: 10-05-2023 BP CONTROLLED (<130/80) BP CONTROLLE D (<130/80) [facility] Start: 10-04-2023 ANNUAL PCP TEAM TABLET COATER CIELO DISEASE VISIT ANNUAL PCP TEAM CHRONIC DISEASE VISIT [facility] Start: 09-01-2023 Advance Directive Discussion Advance Directive Discussion [facility] Start: 09-01-2023 Depression Assessment Depression Ass essment [facility] Start: 08-21-2023 ANNUAL PCP TEAM TABLET COATER CIELO DISEASE VISIT ANNUAL PCP TEAM CHRONIC DISEASE VISIT [facility] Start: 08-21-2023 BP CONTROLLED (<130/80) BP CONTROLLE D (<130/80) [facility] Start: 08-21-2023 COVID-19 VACCINE (2 - Pfizer series) COVID-19 VACCINE (2 - Pfizer series) [facility] Immunizations Immunization Date Immunization Notes Care Provider Fa snow 05-15-2023 respiratory syncytia l virus (RSV) vaccine, bivalent (ABRYSVO) Nadir Grady MD Work Phone: [facility] 05-15-2023 Seasonal trivalent influenza vaccine, adjuvanted, preservative free Nadir Grady MD Work Phone: [facility] 05-13-2022 influenza, high-dose , quadrivalent vaccine (FLUZONE HIGH DOSE QUADRIVALENT) Martha Boston PA-C Work Phone: [facility] 05-13-2022 pneumococcal (PCV20) vaccine, 20 valent (PREVNAR 20) Martha Boston PA-C Work Phone: [facility] 05-13-2022 pneumococcal Conjuga te, unspecified formulation Martha Boston PA-C Work Phone: [facility] Work Phone: 03-01-2021 tetanus toxoid, redu radha diphtheria toxoid, and acellular pertussis vaccine, adsorbed Martha Boston PA-C Work Phone: [facility] 08-10-2020 zoster vaccine recombinant Nadir Grady MD Work Phone: [facility] 04-17-2020 influenza, high dose seasonal, preservative-free Nadir Grady MD Work Phone: [facility] 04-17-2020 zoster vaccine recombinant Nadir Grady MD Work Phone: [facility] 10-18-2019 pneumococcal conjuga te vaccine, 13 valent Nadir Grady MD Work Phone: [facility] 10-18-2019 tetanus toxoid, redu radha diphtheria toxoid, and acellular pertussis vaccine, adsorbed Nadir Grady MD Work Phone: [facility] 06-17-2019 influenza, high dose seasonal, preservative-free Nadir Grady MD Work Phone: [facility] 06-12-2018 influenza, high dose seasonal, preservative-free Nadir Grady MD Work Phone: [facility] 06-12-2018 pneumococcal conjuga te vaccine, 13 valent Nadir Grady MD Work Phone: [facility] 05-04-2017 influenza, injectabl e, quadrivalent, contains preservative Nadir Grady MD Work Phone: [facility] Work Phone: 02-06-2017 pneumococcal polysaccharide vaccine, 23 valent Nadir Grady MD Work Phone: [facility] 06-18-2016 influenza virus vacc ine, unspecified formulation Nadir Grady MD Work Phone: [facility] Work Phone: 07-10-2015 influenza virus vacc ine, unspecified formulation Nadir Grady MD Work Phone: [facility] Work Phone: 07-24-2011 tetanus toxoid, redu radha diphtheria toxoid, and acellular pertussis vaccine, adsorbed Nadir Grady MD Work Phone: [facility] Work Phone: 05-18-2011 influenza virus vacc ine, unspecified formulation Nadir Grady MD Work Phone: [facility] Work Phone: 07-10-2010 influenza virus vacc ine, unspecified formulation Nadir Grady MD Work Phone: [facility] Work Phone: 06-09-2009 influenza virus vacc ine, unspecified formulation Nadir Grady MD Work Phone: [facility] Work Phone: 06-07-2008 influenza virus vacc ine, unspecified formulation Nadir Grady MD Work Phone: [facility] 07-06-2007 influenza virus vacc ine, unspecified formulation Nadir Grady MD Work Phone: [facility] Work Phone: 07-05-2006 influenza virus vacc ine, unspecified formulation Nadir Grady MD Work Phone: [facility] Work Phone: Payers Date Payer Category Payer Medicare [id number] 2018 Medicare HUMANA MEDICARE HU[employer]NA GOLD PLUS [id number] 2018-Present [phone] [address] [facility] [id number] 2018 Medicare HUMANA MEDICARE HUMANA GOLD PLUS [id number] 2018-Present [phone] [address] [address] [place] [address] O [id number] 1999 Unknown [facility] [employer] COMP [id number] 1999-Present [phone] [place] [address] [facility] [id number] 1999 Unknown [facility] [employer] COMP [id number] 1999-Present [phone] [place] [address] [facility] [id number] Social History Date Type Detail Facility Start: 08-04-2015 End: 04-19-2022 Tobacco smoking status NHIS Never smoked tobacco [facility] Work Phone: End: 07-02-2014 History of tobacco use Chews Tobacco [facility] Work Phone: Start: 11-08-2021 End: 09-03-2023 Alcohol intake Current non-drinker of alcohol (finding) [facility] Start: 11-07-2020 End: 04-19-2022 History SDOH Alcohol Frequency [address] [facility] Start: 11-07-2020 End: 04-19-2022 History SDOH Alcohol Std Drinks [address] [facility] Start: 11-07-2020 End: 04-19-2022 History SDOH Social Connections Phone [address] [facility] Start: 11-07-2020 End: 04-19-2022 History SDOH Social Connections Get Together [address] [facility] Start: 11-07-2020 End: 04-19-2022 History SDOH Social Connections Living [address] [facility] Start: 11-07-2020 Education [address] [facility] Start: 08-04-2015 End: 04-19-2022 Tobacco Comment 1 can of chewing tobacco every 3 days PT QUIT [address] [facility] Start: 1955 Sex Assigned At Not on file [facility] Start: 10-29-2021 End: 08-05-2022 Exposure to SARS-CoV-2 (event) Not sure [facility] History of tobacco use Cigarette Smoker [facility] Work Phone: Start: 08-04-2015 End: 04-19-2022 Tobacco use and exposure Former smokeless tobacco user [facility] Work Phone: Start: 04-19-2022 History SDOH Social Connections [facility] [address] [facility] Start: 04-19-2022 End: 06-17-2023 [facility] Start: 04-19-2022 End: 06-17-2023 Social connection and isolation panel [facility] Do you belong to any clubs or organizations such as yarsani groups, unions, fraternal or athletic groups, or school groups? No [facility] How often do you att end meetings of the clubs or organizations you belong to? Patient refused [facility] Are you now , , , , never or living with a partner? [facility] How often to you hav e a drink containing alcohol? Never [facility] How hard is it for y ou to pay for the very basics like food, housing, medical care, and heating Not very hard [facility] Do you feel stress - tense, restless, nervous, or anxious, or unable to sleep at night because your mind is troubled all the time - these days [OSQ] Very much [facility] (I/We) worried deepti er (my/our) food would run out before (I/we) got money to buy more. Sometimes true [facility] Medical Equipment Procedure Code Equipment Code Equipment Origin al Text Equipment Identifier Dates Start: 10-14-2016 End: 06-26-2022 Clinical Notes 10-03-2016 to 10-11-2023 Luis E Agudelo LPN - 10/11/2023 8:35 AM Luis E Clarke LPN - 10/10/2023 7:22 AM ESTTelephone Encounter - Alayna Urrutia MA - 06/26/2023 3:14 PM EDTPatient InstructionsPatient Instructions Note Date & Type Note [facility] 10-11-2023 Note HNO ID: [id number] Author: LUIS E AGUDELO LPN Service: ? Author Type: LICENSED NURSE Type: Progress Notes Filed: 10/11/2023 08:39 Note Text: Scan on 10/10/2023 3:46 PM by Sonido Lemon PA-C: Consultation - Cardiology Scan on 10/10/2023 4:17 PM by Sonido Lemon PA-C: Cardiac Cath Scan on 10/10/2023 4:19 PM by Sonido Lemon PA-C: Echo [facility] 10-11-2023 History of Present illness Narrative Scan on 10/10/2023 3:46 PM by Sonido Lemon PA-C: Consultation - Cardiology Scan on 10/10/2023 4:17 PM by Sonido Lemon PA-C: Cardiac Cath Scan on 10/10/2023 4:19 PM by Sonido Leomn PA-C: Echo documented in this encounter [facility] 10-10-2023 Note HNO ID: [id number] Author: LUIS E AGUDELO LPN Service: ? Author Type: LICENSED NURSE Type: Progress Notes Filed: 10/10/2023 07:27 Note Text: Scan on 10/09/2023 8:13 PM by Sonido Lemon PA-C: Consultation - Emergency Medicine Scan on 10/09/2023 6:58 PM by Sonido Lemon PA-C: X-ray Scan on 10/09/2023 9:13 PM by Sonido Lemon PA-C [facility] 10-10-2023 History of Present illness Narrative Scan on 10/09/2023 8:13 PM by Sonido Lemon PA-C: Consultation - Emergency Medicine Scan on 10/09/2023 6:58 PM by Sonido Lemon PA-C: X-ray Scan on 10/09/2023 9:13 PM by Sonido Lemon PA-C documented in this encounter [facility] 09-03-2023 Note HNO ID: [id number] Author: Blanca Lee PA-C Service: ? Author Type: Physician Merchandise Distributor Type: Progress Notes Filed: 09/03/2023 3:40 PM Note Text: This note was created using Hallspot[employer]. Subjective Michael Boss is a 68 year old male. 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 Managed by [facility] 30 tablet 11 omega-3 fatty acids 1,000 m (more content not included)... [facility] 09-02-2023 Note HNO ID: [id number] Author: Pat Feldman LPN Service: ? Author Type: LICENSED NURSE Type: Progress Notes Filed: 09/02/2023 4:50 PM Note Text: Scan on 09/02/2023 4:28 PM by Provider, Sonido, PARiccardoC: Consultation - Ophthalmology [facility] 06-26-2023 Miscellaneous Notes Contacted patient and let him that [facility] prescribes the medication. Alayna Urrutia MA Patient has been identified by name and date of : Yes, Provider Nadir Grady Date 06/26/23 Time 9:45 Patient phones for refill(s): Requested Prescriptions Pending Prescriptions Disp Refills clopidogrel (PLAVIX) 75 mg tablet 30 tablet 11 Sig: Take 1 tablet by mouth once daily. Managed by [facility] Date of last office visit in primary care: 06/17/2023 Date of next office visit in primary care: Visit date not found Last 2 Encounter Wt Readings: Date: Wt: 06/26/2023 84.5 kg (186 lb 3.2 oz) 06/17/2023 85.7 kg (189 lb) Previous labs/tests for medication: Not applicable Please advise. Thank you. Yolanda Brower. documented in this encounter [facility] 06-26-2023 Miscellaneous Notes Pt called and [...] Augmentin, please advise documented in this encounter [facility] 06-26-2023 Note HNO ID: [id number] Author: Fer Merrill APRN.FINANCIAL AGENT Service: ? Author Type: Nurse Practitioner Type: Progress Notes Filed: 06/26/2023 9:44 AM Note Text: Subjective HPI HPI Michael Boss is a 68 year old male who [...] Migraine variant 07/22/2006 Since head injury around 1996 Mixed hyperlipidemia 08/04/2015 Neck pain, chronic 10/16/2015 [...] Date 2D ECHO (EXEP) 01/16/2017 EF=60%, 1+ [place] and TI CATARACT EXTRACTION HX Left 10/2019 [...] 2 times d (more content not included)... [facility] 06-26-2023 History of Present illness Narrative Images from the original note were not included. Subjective HPI HPI Michael Boss is a 68 year old male who [...] worse L2-L3 Diabetes (HCC) Diabetic eye exam ([facility]) 03/19/2017 Last done: 10/01/2018 Elevated LFTs 08/05/2015 [...] Date 2D ECHO (EXEP) 01/16/2017 EF=60%, 1+ [place] and TI CATARACT EXTRACTION HX Left 10/2019 [...] tablet by mouth once daily. Managed by [facility] omega-3 fatty acids 1,000 mg [...] and atraumatic. Nose: Nose normal. Mouth/Throat: Lips: [place]. Mouth: Mucous membranes are moist. Pulmonary: Effort: [...] Fer Merrill APRN.MIGEL documented in this encounter [facility] 06-19-2023 Note HNO ID: [id number] Author: Odin Reyes MD Service: ? Author Type: Physician Type: Progress Notes Filed: 06/19/2023 12:37 PM Note Text: Express Care Triage Note: [facility] with complaint of sinus pain and shortness of breath. He is a little worse than when seen and treated by Family Medicine 2 days ago. The patient was triaged and determined that he could be further evaluated in the Express Care, but he left before being roomed. [facility] 06-19-2023 History of Present illness Narrative Express Care Triage Note: [facility] with complaint of sinus pain and shortness of breath. He is a little worse than when seen and treated by Family Medicine 2 days ago. The patient was triaged and determined that he could be further evaluated in the Express Care, but he left before being roomed. documented in this encounter [facility] 06-19-2023 Miscellaneous Notes Patient notified and verbalized understanding Meg Miller Cma Please let patient know his labs show improvement in his hgb a1c and the rest of his labs are stable. documented in this encounter [facility] 06-17-2023 Note HNO ID: [id number] Author: Gamal Mathis APRN.CNP Service: ? Author Type: Nurse Practitioner Type: Progress Notes Filed: 06/17/2023 9:03 AM Note Text: Chief Complaint Patient presents with: F/U 6 months Chest Congestion: X 1 week HPI Michael Boss is a 68 year old male who [...] Date 2D ECHO (EXEP) 01/16/2017 EF=60%, 1+ [place] and TI CATARACT EXTRACTION HX Left 10/2019 [...] dysplasia, repeat in 2 years EGD W/O [facility] SPEC VARICIES INJ 10/14/2022 FECAL OCCULT BLOOD [...] 1 tablet by mouth twice daily. Per [facility]: Dr. Kern nystatin (MYCOSTATIN) 100,000 unit/mL suspension Take 5 mL by mouth four times daily. 1tsp swish in mouth for several minutes, then swallow (or expectorate) 4 times daily until gone. triamcinolone acetonide (KENALOG) 0.1 % cream Apply 1 application to affected are (more content not included)... [facility] 05-16-2023 Note HNO ID: [id number] Author: Luis E Agudelo LPN Service: ? Author Type: ? Type: Progress Notes Filed: 05/18/2023 4:03 PM Note Text: Scan on 05/15/2023 9:35 AM by ProviderSonido PARiccardoC: Consultation - Cardiology [facility] 05-16-2023 History of Present illness Narrative Scan on 05/15/2023 9:35 AM by Provider, Sonido, PA-C: Consultation - Cardiology documented in this encounter [facility] 04-04-2023 Miscellaneous Notes Patient notified.Daniella Whiteside LPN Please notify that testing showed no fungus at 3 days. Will call if becomes positive. documented in this encounter [facility] 04-03-2023 Miscellaneous Notes Pt was notified of the results. Pt verbalized understanding. Hodan Menard MA No fungal growth after 1 day will continue to grow culture and if anything comes back positive we will call patient. documented in this encounter [facility] 04-01-2023 Miscellaneous Notes Last office visit: [...] advise. Tato Isidro documented in this encounter [facility] 04-01-2023 Note HNO ID: [id number] Author: Blanca Lee PA-C Service: ? Author Type: Physician Merchandise Distributor Type: Progress Notes Filed: 04/01/2023 8:17 AM Note Text: This note was created using [employer]. Subjective Michael Boss is a 68 year old male. HPI [...] tongue. Has a history of angioedema to [place]. Not on any PANFILO inhibitors. He did start taking an emea-tdn-[id number] zinc supplement 3 weeks ago. He had [...] lumbar 06/30/2016 Multi level, worse L2-L3 Diabetes ([facility]) Diabetic eye exam ([facility]) 03/19/2017 Last done: 10/01/2018 Elevated LFTs 08/05/2015 [...] Kern 30 t (more content not included)... [facility] 04-01-2023 History of Present illness Narrative This note was created using Hallspotriter. Subjective Michael Boss is a 68 year old male. HPI [...] tongue. Has a history of angioedema to [facility]. Not on any PANFILO inhibitors. He did start taking an kykc-sqx-olpzprs zinc supplement 3 weeks ago. 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 1 Each 0 Lancets lancets Test blood sugar(s) 2 times daily. Dx: Type 2 DM - Uncontrolled E11.65 Insulin: No 100 Each 11 blood sugar diagnostic (BLOOD GLUCOSE TEST) test strip Test blood sugar(s) 2 times daily. Dx: Type 2 DM - Uncontrolled E11. Insulin: No 100 Strip 11 fluticasone (FLONASE) [...] tablet by mouth once daily. Managed by [facility] 30 tablet 11 omega-3 fatty [...] Date 2D ECHO (EXEP) 01/16/2017 EF=60%, 1+ [place] and TI CATARACT EXTRACTION HX Left 10/2019 [...] Blanca Lee PA-C documented in this encounter [facility] 03-10-2023 Note HNO ID: [id number] Author: Ute Shine APRN.FINANCIAL AGENT Service: ? Author Type: Nurse Practitioner Type: Progress Notes Filed: 03/10/2023 12:56 PM Note Text: Subjective The history is provided by the patient. No manufacturing helper was used. HPI Michael Boss is a 68 year old male who [...] worse L2-L3 Diabetes (HCC) Diabetic eye exam ([facility]) 03/19/2017 Last done: 10/01/2018 Elevated LFTs 08/05/2015 [...] have confirmed and edited as necessary, the [facility] Review of Systems Constitutional: Negative for [...] warranting prompt ER evaluation. Ute Shine APRN.CNP [facility] 03-10-2023 Instructions Ute Shine APRN.CNP - 03/10/2023 12:56 PM EDT Start Triamcinolone 0.1% ointment twice daily for itch May use OTC benadryl or zyrtec as needed for itching Keep rash clean and dry. Allow to dry out. documented in this encounter [facility] 03-10-2023 History of Present illness Narrative Images from the original note were not included. Subjective The history is provided by the patient. No manufacturing helper was used. HPI Michael Boss is a 68 year old male who [...] lumbar 06/30/2016 Multi level, worse L2-L3 Diabetes ([facility]) Diabetic eye exam ([facility]) 03/19/2017 Last done: 10/01/2018 Elevated LFTs 08/05/2015 [...] have confirmed and edited as necessary, the [facility] Review of Systems Constitutional: Negative for [...] detail warranting prompt ER evaluation. Ute Shine APRN.FINANCIAL AGENT documented in this encounter [facility] 02-24-2023 Miscellaneous Notes Pt notified of same, verbalizes understanding. Luis E Agudelo LPN Refill sent. Let patient know that his previous requests never were routed to us correctly. We apologize. Please let pt know when refilled. Last refill listed as historical med [facility] 11/28/22 NOV 06/04/23 Luis E Agudelo LPN documented in this encounter [facility] 02-17-2023 Note HNO ID: [id number] Author: Nadir Alves APRN.FINANCIAL AGENT Service: ? Author Type: Nurse Practitioner Type: [...] Date 2D ECHO (EXEP) 01/16/2017 EF=60%, 1+ [place] and TI CATARACT EXTRACTION HX Left 10/2019 [...] dysplasia, repeat in 2 years EGD W/O [facility] SPEC VARICIES INJ 10/14/2022 FECAL OCCULT BLOOD [...] before meal. Blood-Glucose (more content not included)... [facility] 02-04-2023 Miscellaneous Notes This is being handled in another telephone call. See other message regarding this. Closing this note. Lisa Rabago Patient came in to refill lorazepam. Unable to refill please review and advise patient regarding prescription. Patient came in wanting to refill Lorazepam $ documented in this encounter [facility] 01-17-2023 Note HNO ID: [id number] Author: Alayna Urrutia MA Service: ? Author Type: Transportation Museum Helper Type: Progress Notes Filed: 01/20/2023 12:18 PM Note Text: Scan on 01/16/2023 4:10 PM by External Provider, PA-C: CT Scan Scan on 01/16/2023 4:11 PM by External Provider, PA-C: CT Scan Scan on 01/16/2023 8:47 PM by External Provider, PA-C: Consultation - Emergency Medicine Alayna Urrutia MA [facility] 01-16-2023 Note HNO ID: [id number] Author: Miladys Butt APRN.FINANCIAL AGENT Service: ? Author Type: Nurse Practitioner Type: Progress Notes Filed: 01/16/2023 1:14 PM Note Text: EXPRESS CARE TRIAGE NOTE: Michael Boss is a 67 year old male who [...] elects to go to ER. Miladys Butt APRN.FINANCIAL AGENT [facility] 01-07-2023 Miscellaneous Notes Last refill Actos 11/29/22 Qty: 90 with 1 refill Last refill Iron 11/05/22 Qty: 60 with 1 refill Last refill Metformin 06/19/22 Qty: 360 with 1 refill [facility] 11/28/22 NOV 06/04/23 Luis E Agudelo LPN Patient has been identified by name and date of : Yes Last office visit in this department: Visit date not found RX INSTRUCTIONS: Patient aware RX will be sent to pharmacy. No need to notify patient. Patient phones requesting refills as follows: Requested Prescriptions No prescriptions requested or ordered in this encounter Please review and advise. JASE Jin documented in this encounter [facility] 11-29-2022 Miscellaneous Notes The following approved medication requests have been transmitted electronically. Requested Prescriptions Signed Prescriptions Disp Refills pioglitazone (ACTOS) 45 mg tablet 90 tablet 1 Sig: Take 1 tablet by mouth once daily. Authorizing Provider: MARTHA BOSTON PA-C TC to patient who verbalizes understanding of providers message. Patient agreeable to increasing Actos to 45mg. Prefers [facility] in [place]. Please advise. Thank you. CALLIE Rodriguez Let patient know that his a1c is 7.7%. I would like to see this under 7.5%. is he willing to increase actos to 45mg? His cholesterol was normal. PSA level is a little elevated. Recheck in 1 month. Blood counts are stable. documented in this encounter [facility] 11-28-2022 Note HNO ID: [id number] Author: Martha Boston PA-C Service: ? Author Type: Physician Merchandise Distributor Type: Progress Notes Filed: 11/28/2022 2:29 PM [...] worse L2-L3 Diabetes (HCC) Diabetic eye exam ([facility]) 03/19/2017 Last done: 10/01/2018 Elevated LFTs 08/05/2015 [...] Date 2D ECHO (EXEP) 01/16/2017 EF=60%, 1+ [place] and TI CATARACT EXTRACTION HX Left 10/2019 [...] than 30 secon (more content not included)... [facility] 11-28-2022 History of Present illness Narrative Medicare [...] Date 2D ECHO (EXEP) 01/16/2017 EF=60%, 1+ [place] and TI CATARACT EXTRACTION HX Left 10/2019 [...] No chief complaint on file. HPI Michael Boss is a 67 year old male who [...] 08/04/[address] Duque Chronic sinusitis Claudication ([facility]) 06/04/2017 PVR's normal. Coronary atherosclerosis due to lipid rich plaque 01/20/[address] Kern. s/p RODDY to Ramus and RODDY to LAD placed 01/20/2017. COVID-19 virus infection 06/18/202106/2021 DDD (degenerative disc disease), cervical 01/20/2012 DDD (degenerative disc disease), lumbar 06/30/2016 Multi level, worse L2-L3 Diabetes ([facility]) Diabetic eye exam ([facility]) 03/19/2017 Last done: 10/01/2018 Elevated LFTs 08/05/2015 [...] Date 2D ECHO (EXEP) 01/16/2017 EF=60%, 1+ NJ and TI CATARACT EXTRACTION HX Left 10/2019 [...] tablet by mouth once daily. Managed by [facility] omega-3 fatty acids 1,000 mg [...] which included preparing to see the patient, [id number]-hbsv patient care, completing clinical documentation, obtaining and/or reviewing separately obtained history, performing a medically appropriate examination, counseling and educating the patient/family/caregiver, ordering medications, tests, or procedures, communicating with other HCPs (not separately reported), and communicating results to the patient/family/caregiver. documented in this encounter [facility] 11-21-2022 Note HNO ID: [id number] Author: Jenna Jim APRN.MIGEL Service: ? Author Type: Nurse Practitioner Type: Progress Notes Filed: 11/21/2022 10:34 AM Note Text: [facility] [place] Follow-up Visit Follow-up note November 21, 2022 HPI: Mr. Boss presents today for a follow-up visit. Per [...] chronic 10/16/2015 Neuropath (more content not included)... [facility] 11-21-2022 Instructions Jenna Jim APRN.CNP - 11/21/2022 10:11 AM EDT Gabapentin Week one: 300mg in morning and 600mg at night Week two : 300mg twice daily Week three: 300mg once daily Week four: 300mg every other day Week five: stop medication *If at any point during taper pain should worsen, stop tapering schedule and continue current dose (at that time) of gabapentin. documented in this encounter [facility] 11-21-2022 History of Present illness Narrative Images from the original note were not included. [facility] [place] Follow-up Visit Follow-up note November 21, 2022 HPI: Mr. Boss presents today for a follow-up visit. Per [...] Date 2D ECHO (EXEP) 01/16/2017 EF=60%, 1+ NJ and TI CATARACT EXTRACTION HX Left 10/2019 [...] tablet by mouth once daily. Managed by [facility] omega-3 fatty acids 1,000 mg [...] DATE OF EXAM: Apr 05 2022 2:00PM [facility] 0504 - CT BRAIN WO IVCON / [...] base and imaged soft tissues are unremarkable. Vending Machine Coin Collector (topogram) images: No acute findings Impression: IMPRESSION: No significant change. No acute intracranial process Barrel Repairer: FAWN Transcribe Date/Time: Apr 05 2022 2:06P [...] which included preparing to see the patient, qbna-tl-[id number] patient care, completing clinical documentation, obtaining and/or reviewing separately obtained history, performing a medically appropriate examination, counseling and educating the patient/family/caregiver, and ordering medications, tests, or procedures. documented in this encounter [facility] 11-14-[address] consult for [facility].. In provider review of patient appointment, patient [facility]. Pt has been seen by three general neurologists and due to the overall concerns, provider believes center [facility] will be more beneficial to patient. TC to patient who is advised of the above and is agreeable to see [facility]. Please contact patient and assist with scheduling with [facility]. Thank you. CALLIE Rodriguez documented in this encounter [facility] 11-12-2022 Note HNO ID: [id number] Author: Fer Merrill APRN.FINANCIAL AGENT Service: ? Author Type: Nurse Practitioner Type: Progress Notes Filed: 11/12/2022 11:46 AM Note Text: Subjective HPI HPI Michael Boss is a 67 year old male who [...] worse L2-L3 Diabetes (HCC) Diabetic eye exam ([facility]) 03/19/2017 Last done: 10/01/2018 Elevated LFTs 08/05/2015 [...] Date 2D ECHO (EXEP) 01/16/2017 EF=60%, 1+ NJ and TI CATARACT EXTRACTION HX Left 10/2019 [...] once daily. M (more content not included)... [facility] 11-12-2022 History of Present illness Narrative Subjective HPI HPI Michael Boss is a 67 year old male who [...] Date 2D ECHO (EXEP) 01/16/2017 EF=60%, 1+ NJ and TI CATARACT EXTRACTION HX Left 10/2019 [...] tablet by mouth once daily. Managed by [facility] omega-3 fatty acids 1,000 mg [...] TABLETS IN A DOSE PACK Fer Merrill APRN.FINANCIAL AGENT documented in this encounter [facility] 11-05-2022 Miscellaneous Notes Last Office Visit: 10/24/2022 Future Office Visit: 11/19/2022 Requested Prescriptions Pending Prescriptions Disp Refills ferrous sulfate 325 mg (65 mg iron) tablet 60 tablet 1 Sig: Take 1 tablet by mouth twice daily with meals. Date of Last Labs: 08/21/2022 documented in this encounter [facility] 10-29-2022 Note HNO ID: [id number] Author: Jennifer Pavon PA-C Service: ? Author Type: Physician Merchandise Distributor Type: Progress Notes Filed: 11/05/2022 2:55 PM Note Text: FOLLOW UP VISIT - ENDOSCOPY NAME: Michael Pagan [facility] NO.: [id number] DATE OF SERVICE: 10/29/2022 : 1955 REFERRING [...] in one cassette. Gross examination performed at [facility], [address] [place] [address] 10/14/2022 8:25 PM Performing Lab Diagnostic interpretation performed at [facility], [address] [place], [place] [address]IA# [id number] Coal Trammer: Olayinka Paz M.D. Addendum Addendum is issued [...] which included preparing to see the patient, nmus-wx-hjvf patient care, completing clinical documentation, obtaining and/or reviewing separately obtained history, counseling and educating the patient/family/caregiver, independently interpreting results (not separately reported), and communicating results to the patient/family/caregiver. Jennifer Pavon PA-C [facility] 10-29-2022 Instructions Jennifer Pavon PA-C - 10/29/2022 4:38 PM EST -Continue PPI long-term -Repeat EGD in 2 years for surveillance The following instructions are important for you related to your office visit today with the [facility]. INSTRUCTIONS FOLLOWING A NORMAL COLONOSCOPY [...] the stomach to the esophagus (gastroesophageal reflux). Snatos's changes are microscopic findings that have the [...] you should contact our office immediately @ [phone] and ask to be transferred to the General Surgery department. documented in this encounter [facility] 10-29-2022 History of Present illness Narrative FOLLOW UP VISIT - ENDOSCOPY NAME: Michael Pagan [facility] NO.: [id number] DATE OF SERVICE: 10/29/2022 : 1955 REFERRING [...] in one cassette. Gross examination performed at [facility], [facility] [place] [address] JT 10/14/2022 8:25 PM Performing Lab Diagnostic interpretation performed at [facility], [facility] [address] [facility]# [id number] Coal Trammer: Olayinka Paz M.D. Addendum Addendum is issued [...] which included preparing to see the patient, wrgk-kz-bnyv patient care, completing clinical documentation, obtaining and/or reviewing separately obtained history, counseling and educating the patient/family/caregiver, independently interpreting results (not separately reported), and communicating results to the patient/family/caregiver. Jennifer Pavon PA-C documented in this encounter [facility] 10-23-2022 Note HNO ID: [id number] Author: Alayna Urrutia MA Service: ? Author Type: Transportation Museum Helper Type: Progress Notes Filed: 10/24/2022 8:47 AM Note Text: Scan on 10/23/2022 10:26 AM by External Provider: Consultation - Cardiology Please review. Alayna Urrutia MA [facility] 10-23-2022 History of Present illness Narrative Scan on 10/23/2022 10:26 AM by External Provider: Consultation - Cardiology Please review. Alayna Urrutia MA documented in this encounter [facility] 10-14-2022 History and physical note Images from the original note were not included. HISTORY AND PHYSICAL Michael Boss 1955 REFERRING PHYSICIAN: Martha Boston PA-C CHIEF [...] worse L2-L3 Diabetes (HCC) Diabetic eye exam ([facility]) 03/19/2017 Last done: 10/01/2018 Elevated LFTs 08/05/2015 [...] Date 2D ECHO (EXEP) 01/16/2017 EF=60%, 1+ NJ and TI CATARACT EXTRACTION HX Left 10/2019 [...] entered by the nurse and reviewed by wi Nursing Notes: Shiela Thacker LPN 06/27/2022 9:31 [...] Mammogram screening? N/A Last Colonoscopy: none Shiela Thakcer LPN PHYSICAL EXAMINATION: General: The patient is [...] Thai Santiago MD documented in this encounter [facility] 10-05-2022 History of Present illness Narrative Chief Complaint Patient presents with: Follow Up: Low BS's and low BP HPI Michael Boss is a 67 year old male who presents here today for Above Complaints.. At last visit patient was instructed to stop his Amaryl which he did. He also stopped his Actos which I did not want him to do and this ws just restarted. With being on prednisone per cardio his FBS have ranged 130's-160. [place] hrs post meals have been in the [...] Date 2D ECHO (EXEP) 01/16/2017 EF=60%, 1+ NJ and TI CATARACT EXTRACTION HX Left 10/2019 [...] tablet by mouth once daily. Managed by [facility] omega-3 fatty acids 1,000 mg [...] Nadir Grady MD documented in this encounter [facility] 10-02-2022 Miscellaneous Notes The following approved medication requests have been transmitted electronically. Requested Prescriptions Signed Prescriptions Disp Refills pioglitazone (ACTOS) 30 mg tablet 90 tablet 1 Sig: Take 1 tablet by mouth once daily. Authorizing Provider: NADIR GRADY MD Jaspal- [facility] reports she informed patient and [...] to DDM. Pended. documented in this encounter [facility] 09-24-2022 Miscellaneous Notes Jaspal Clayton-[facility] CCN called and is notified [...] his f/u appt in a month. Jaspal Matilde with [facility] calls to report they take care of setting up pt's meds. Today pt reported to Jaspal that Actos was stopped. Jaspal is asking pcp if medication has been discontinued and if there is documentation concerning this could it please be faxed to: [phone]. Can call Jaspal @ [phone]. Actos is currently on pt's med chart. Aaliyah Horner LPN documented in this encounter [facility] 09-23-2022 Instructions Jenna Jim APRN.MIGEL - 09/23/2022 3:05 PM EST Week 1 and 2: Take one tablet at bedtime Week 3 and 4 : Take twice per day (one tablet after breakfast and one tablet at bed) Keep monitoring your blood pressure. If the medication is helping you should notice less fatigue, stabilizing blood pressure, less dizziness, less high heart rates and better stamina. documented in this encounter [facility] 09-23-2022 Instructions Miladys Butt APRN.CNP - 09/23/2022 2:26 PM EST ASSESSMENT/PLAN: 1. Foot injury, left, initial encounter - ICD9: 959.7, ICD10: S99.922A - XR FOOT GENERAL 3V AP/LAT/OBL LEFT Radiologist IMPRESSION: No radiographic evidence of acute osseous injury. Barrel Repairer: FAWN Transcribe Date/Time: Sep 23 2022 1:46P [...] Miladys Butt APRN.CNP documented in this encounter [facility] 09-23-2022 History of Present illness Narrative Images from the original note were not included. Subjective Trauma Pertinent negatives include no fever or rash. Michael Boss is a 67 year old male who [...] lumbar 06/30/2016 Multi level, worse L2-L3 Diabetes ([facility]) Diabetic eye exam ([facility]) 03/19/2017 Last done: 10/01/2018 Elevated LFTs 08/05/2015 [...] Date 2D ECHO (EXEP) 01/16/2017 EF=60%, 1+ NJ and TI CATARACT EXTRACTION HX Left 10/2019 [...] tablet by mouth once daily. Managed by [facility] omega-3 fatty acids 1,000 mg cap Take [...] No radiographic evidence of acute osseous injury. Barrel Repairer: FAWN Transcribe Date/Time: Sep 23 2022 1:46P Dictated by : PHYLLIS TORRES MD - Follow-up with your PCP in 3-5 days if symptoms have not improved or sooner if symptoms worsen - Discussed red flags and need for immediate medical evaluation if any occur. - Discussed supportive care treatment with fluids, rest and analgesia. - Discussed expected course of illness Miladys Butt APRN.FINANCIAL AGENT documented in this encounter [facility] 09-19-2022 History of Present illness Narrative Images from the original note were not included. [facility] [place] Follow-up Visit Follow-up note September 19, 2022 HPI: Mr. Boss presents today for a follow-up visit. 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 Previously noted to have low blood pressure [...] as well. Saw neurology earlier today at [facility]. Per [facility] Dr. العلي at appointment earlier today (09/19/22): [...] of multiple head injury. Saw neurology is [facility] - orthostatic - med SE, no overt [...] autonomic clinic. Balaji Gagnon 04/25/22: Balaji Gagnon FINANCIAL AGENT on 04/25/22: IMPRESSION/PLAN: Michael Boss is a 67 year old male with [...] would be difficulty to go to our [place] location to complete. Medications can also be [...] muscles. States he did pass out in yarsani four weeks ago. Tremors intermittently in hands. [...] Migraine variant 07/22/2006 Since head injury around 1996 Mixed hyperlipidemia 08/04/2015 Neck pain, chronic 10/16/2015 [...] Date 2D ECHO (EXEP) 01/16/2017 EF=60%, 1+ NJ and TI CATARACT EXTRACTION HX Left 10/2019 CC CORONARY STENT 05/10/2020 RODDY to pLCx CC CORONARY STENT 12/2016 Ramus of Circ and LAD CC CORONARY STENT 11/20/2020 RODDY to pLCx and PTCA to OM2 CC CORONARY STENT 07/23/2021 PCI to prox Lt Circ in-stent restenosis then placement of RODYD FECAL OCCULT BLOOD TEST 04/19/2019 Negative PAST [...] tablet by mouth once daily. Managed by [facility] omega-3 fatty acids 1,000 mg [...] DATE OF EXAM: Apr 05 2022 2:00PM [facility] 0504 - CT BRAIN WO IVCON [...] base and imaged soft tissues are unremarkable. Vending Machine Coin Collector (topogram) images: No acute findings Impression: IMPRESSION: No significant change. No acute intracranial process Barrel Repairer: FAWN Transcribe Date/Time: Apr 05 2022 2:06P [...] which included preparing to see the patient, lhdw-hf-lnhd patient care, completing clinical documentation, obtaining and/or reviewing separately obtained history, performing a medically appropriate examination, counseling and educating the patient/family/caregiver, ordering medications, tests, or procedures, and communicating with other HCPs (not separately reported). documented in this encounter [facility] 09-05-2022 Miscellaneous Notes Pt called and is notified of providers message and instructions. Pt voices understanding. Jennifer Blue RN Let patient know that he did leaf size picker the pseudoephedrine 30 mg tabs and [...] he stopped. August 28 Jaspal SAHNI from [facility] calls to report that patient [...] is not why? With [facility] this should of been less than $8. [...] Selma Echevarria LPN documented in this encounter [facility] 08-30-2022 Miscellaneous Notes Patient has been identified by [...] advise. Liza Hood documented in this encounter [facility] 08-28-2022 Miscellaneous Notes Noted. Jaspal SAHNI from [facility] calls to report that patient had taken pseudoephedrine and patient became dizzy, couldn't stand, and couldn't stay awake. Patient has not taken this medication anymore. Patient also requested office visit notes to be faxed to [phone]. Faxed as requested. Beverly Rawls RN documented in this encounter [facility] 08-22-2022 Miscellaneous Notes Noted. Spoke with Michael and gave Dr. Grady recommendations. He said he would think about it and let us know. I patient I would send the name of the medication via [employer]. Alayna Urrutia MA Let Michael know I did some looking into alternate treatments for esophageal spasms. There is a med called hyoscyamine that he would take three times a day and it will not affect BP. If interested I will send in script to [facility]. documented in this encounter [facility] 08-22-2022 Miscellaneous Notes TC to patient, POA answered and took detailed message for patient. Verbalized understanding with no questions at this time. CALLIE Rodriguez Let patient know iron levels are better and hemoglobin is almost back to normal. Cont the iron medication. documented in this encounter [facility] 08-21-2022 Instructions Nadir Grady MD - [...] be below 180. documented in this encounter [facility] 08-21-2022 History of Present illness Narrative Chief Complaint Patient presents with: Follow Up HPI Michael Boss is a 67 year old male who [...] will be seeing Neurology in September in [place] for eval also. Patient's BS's have been running in [...] Date 2D ECHO (EXEP) 01/16/2017 EF=60%, 1+ NJ and TI CATARACT EXTRACTION HX Left 10/2019 [...] tablet by mouth once daily. Managed by [facility] omega-3 fatty acids 1,000 mg [...] which included preparing to see the patient, dwqy-cx-bzic patient care, completing clinical documentation, performing a medically appropriate examination, counseling and educating the patient/family/caregiver and ordering medications, tests, or procedures. Nadir Grady MD documented in this encounter [facility] 08-07-2022 Miscellaneous Notes The following approved [...] patient. Veena Currie documented in this encounter [facility] 08-05-2022 Nurse Note AMBULATORY CYSTOSCOPY PROCEDURE [...] Keith Rawls Ma documented in this encounter [facility] 08-05-2022 History of Present illness Narrative [facility] [place] CYSTOSCOPY PROCEDURE NOTE: Michael Boss is a 67 year old male who presents with BPH for cystoscopy. Pt ID verified with patient: Yes Procedure verified with patient: Yes Procedure confirmed with physician and direct support professional: Yes UNIVERSAL PROTOCOL / SAFETY CHECKLIST Procedure [...] Mike Lucero MD documented in this encounter [facility] 07-30-2022 History of Present illness Narrative Chief Complaint Coldness in chest HPI Michael Boss is a 67 year old male who [...] lumbar 06/30/2016 Multi level, worse L2-L3 Diabetes ([facility]) Diabetic eye exam ([facility]) 03/19/2017 Last done: 10/01/2018 Elevated LFTs 08/05/2015 [...] Date 2D ECHO (EXEP) 01/16/2017 EF=60%, 1+ NJ and TI CATARACT EXTRACTION HX Left 10/2019 [...] Gamal Mathis APRN.MIGEL documented in this encounter [facility] 07-29-2022 Miscellaneous Notes Patient rescheduled. Alayna Urrutia MA Pt's POA Frida called in for an appt. Frida had hung up phone while appt was being scheduled with Gamal Mathis CNP for 07/30 @ 9:00 am. Appt was taken by another personnel scheduler. Message left on Frida's vm to call back to reschedule appt. Aaliyah Horner LPN documented in this encounter [facility] 07-12-2022 Miscellaneous Notes Called patient's POA and she confirmed the appointment on 08/05 documented in this encounter [facility] 07-11-2022 Miscellaneous Notes Patient notified and voiced understanding. Alayna Urrutia MA Let patient know that his renal function is normal. Okay to restart metformin. Also his iron levels and blood counts are improving. Continue the iron supplement. Martha Boston PA-C documented in this encounter [facility] 07-10-2022 Miscellaneous Notes Noted. agree Martha, please see below FYKati. Luis E Agudelo LPN Spoke with Branden Vick's nurse about scheduling the patient for a consultation. She reported the patient will need to speak with an MD in urology for the procedure that he is being referred for. I relayed the information to the patient's POA. I attempted to contact [facility] but had to leave a VM of the patient's information and request for appointment. The patient's POA understood that a VM had been left and that [facility] will reach out. She was provided the phone number to [facility]. documented in this encounter [facility] 07-10-2022 Miscellaneous Notes Patient notified of results and provider's instructions. Patient verbalizes understanding. Also called EC Frida per pt's request to review results and instructions. Pt had wanted her to schedule Urology appointment for him. Reviewed results and instructions with Frida, she verbalizes understanding. She was transferred to schedule Urology appointment. Copy of CT scan faxed with FYI to [facility]. Luis E Agudelo LPN Let patient know that CT abd scan shows mild bladder wall thickening which is of uncertain nature and I would like him to see urology for this. CT shows coronary artery calcifications. Will just forward result to his cardiology ([facility]) as a FYI only. Given that he recently had a heart cath, not much more that they will likely recommend. Martha Boston PA-C documented in this encounter [facility] 07-09-2022 History of Present illness Narrative [...] Pelvis SIGNATURE: RT Lucretia(R) PATIENT NAME: Michael Boss DATE: July 09, 2022 TIME: 12:12 PM documented in this encounter [facility] 07-05-2022 Miscellaneous Notes Spoke with pt and reviewed Martha's message. Pt verbalizes understanding. Luis E Agudelo LPN Let patient know that this was prescribed for short term use only. 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 This was discussed with him. I will [...] Last refill: 05/2022 documented in this encounter [facility] 07-02-2022 Miscellaneous Notes Called pt and reviewed Martha's result note and instructions. Pt verbalizes understanding. Advised pt would call Frida to update her as well. Pt was transferred to schedule CT scan. Reviewed Martha's message and instructions with frida, she verbalizes understanding. Also sent copy of message via My Chart so Frida will have for reference. Luis E Agudelo LPN Let patient know that US shows [...] Martha Boston PA-C documented in this encounter [facility] 07-02-2022 History of Present illness Narrative HISTORY AND PHYSICAL Michael Boss 1955 REFERRING PHYSICIAN: Martha Boston PA-C CHIEF [...] worse L2-L3 Diabetes (HCC) Diabetic eye exam ([facility]) 03/19/2017 Last done: 10/01/2018 Elevated LFTs 08/05/2015 [...] Date 2D ECHO (EXEP) 01/16/2017 EF=60%, 1+ NJ and TI CATARACT EXTRACTION HX Left 10/2019 [...] tablet by mouth once daily. Managed by [facility] omega-3 fatty acids 1,000 mg [...] entered by the nurse and reviewed by wi Nursing Notes: Shiela Thacker LPN 06/27/2022 9:31 [...] Thai Santiago MD documented in this encounter [facility] 07-01-2022 History of Present illness Narrative Radiology Service Progress Note PATIENT NAME: Michael Boss DATE OF SERVICE: July 01, 2022 TIME: [...] 2022 9:02 AM documented in this encounter [facility] 06-27-2022 Miscellaneous Notes Spoke with pt and advised of Martha's message and instructions. Pt verbalizes understanding. Pt also aware this nurse had given this message to Frida as well. Luis E Agudelo LPN Advised pt's [id number] Frida of Martha's message and instructions. She [...] via cell a little bit later today. Luis E Agudelo LPN Let patient know that his iron level is low. Will want him to start iron supplement, I will send this in. Repeat labs in 1 month. Martha Boston PA-C documented in this encounter [facility] 06-27-2022 Instructions Thai Santiago MD - [...] If you do not have a responsible driver education road instructor (family member or friend) with you to [...] midnight. 2 08/2019 documented in this encounter [facility] 06-27-2022 Nurse Note REVIEW OF SYSTEMS: [...] Shiela Thacker LPN documented in this encounter [facility] 06-26-2022 Miscellaneous Notes Pt called and [...] No Authorizing Provider: NADIR GRADY MD Frida Nisha (pt's relative & emergency contact) called to verify appts. Frida states to go ahead & call in new Rx for glucometer, lancets & test strips to [facility], pending. Beulah Wright LPN Looking at med list it seems like he has not had a new glucose meter in 5 years. See if he is ok with us sending in scripts for new meter, lancets and test strips? Noted. When is next time [facility] community care network coming out to check? Martha Boston PA-C The following approved medication requests have been transmitted electronically. Requested Prescriptions Signed Prescriptions Disp Refills glimepiride (AMARYL) 2 mg tablet 30 tablet 5 Sig: Take 1 tablet by mouth daily with breakfast. Authorizing Provider: MARTHA BOSTON PA-C Jennifer at [facility] was called and given providers information. She requested last OV notes be faxed over for Dr Kern to see. She states they will call back once he has looked at them and made any decisions. Faxed last OV note to [phone]. Pt called and is notified of providers [...] in and get labs done. Will call [facility]. Jennifer Blue RN Let patient know that [...] these readings down? Also can you contact [facility] and let them know we saw patient yesterday and his BP was 80/50. We are working up anemia and adjusting diabetic management, but didn't know if they wanted to address the low blood pressure and make medication change. Martha Boston PA-C documented in this encounter [facility] 06-25-2022 Miscellaneous Notes Jaspal with [facility] called for office visit from today 06-25-22 apt with CAMELIA Candelario. Identified pt with name and date of . Faxed copy to [phone]. Done. Selma Echevarria LPN documented in this encounter [facility] 06-25-2022 Instructions Martha Boston PA-C - 06/25/2022 8:10 AM EDT Make an appointment with cardiology to discuss your blood pressures. documented in this encounter [facility] 06-25-2022 History of Present illness Narrative Chief Complaint Patient presents with: Weight Loss: Patient states has had loss of weight, muscle mass. Is also having head pain HPI Michael Boss is a 67 year old male who [...] lumbar 06/30/2016 Multi level, worse L2-L3 Diabetes ([facility]) Diabetic eye exam ([facility]) 03/19/2017 Last done: 10/01/2018 Elevated LFTs 08/05/2015 [...] Date 2D ECHO (EXEP) 01/16/2017 EF=60%, 1+ [place] and TI CATARACT EXTRACTION HX Left 10/2019 [...] - Dx: Type 2 DM - Uncontrolled Lancets lancets Test blood sugar(s) 2 times [...] Martha Boston PA-C documented in this encounter [facility] 06-20-2022 Miscellaneous Notes Jaspal Odonnell LPN [...] his plavix and lipitor come from the [facility] and will need to contact them is he needs [facility] Requested Prescriptions Signed Prescriptions Disp Refills pioglitazone [...] below regarding prescriptions. Please review and advise, Bevelry Rawls RN Jaspal calls back and notified of provider instructions. Jaspal voices understanding. Patient is now getting his prescriptions through [facility]. Asking for prescriptions to be sent there. Patient's blood sugar is 245 today. Please review and advise, Beverly Rawls RN Let jaspal know I want to increase his actos to 30 mg a day. Is he still getting meds packaged from [facility] or did he change pharmacies. [facility] reports they have the [employer] health program and they were called in a blood sugar on the Pt of 447. She states the Pt reports he has only had a milk so far this morning. Pt takes Actos daily and Metformin twice a day. Pt is asymptomatic. Jaspal SAHNI told Pt to start drinking lots of water. Please call and advise. documented in this encounter 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 Headaches worsening and requesting advisement. Thank you, Michelle Oakes documented in this encounter [facility] 05-29-2022 Miscellaneous Notes Received fax from [facility] requesting pt's last A1c as pt is in there program. Last A1c faxed to [phone] as requested. Luis E Agudelo LPN documented in this encounter [facility] 05-28-2022 History of Present illness Narrative [...] Referred to ED documented in this encounter [facility] 05-28-2022 Miscellaneous Notes Noted. Call placed [...] would have to be responsible to notify [facility] of no longer needing services and would need to let provider's office know when he is in need of prescriptions through [facility]. Jaspal verbalizes understanding and plans to contact [...] Also we just got a call from [facility] asking us to send the Actos script to them yesterday ??? Not sure how they know it went to [facility] (which is what the patient wanted) but since the person who responded to the message was not aware he was not wanting [facility] at [facility] it got sent there. So if he is not going to use [facility] then he needs to let them know and then update use when he wants meds sent to [facility]. However I think this is a bad idea since he can not read. Jaspal Clayton with [facility] calls to update provider on patient. Jaspal reports that patient has stopped taking sertraline and amantadine d/t possible side effect of dizziness. She reports that he is removing the pills from his pill packs supplied by [facility] but patient isn't able to read so she is not certain how he is actually identifying the correct pills to remove. Patient reported to Jaspal that he is no longer going to receive medication pill packs from [facility] and wants [facility] nurse to fill weekly for [...] Kern. Jaspal requesting a call back at [phone] if provider wants any changes or any response to the above. Please review and advise, Nury Jo RN documented in this encounter [facility] 05-24-2022 Miscellaneous Notes Patient notified. Alayna Urrutia MA Let patient know Actos sent to drug [facility] for 90 days. The following approved medication requests have been transmitted electronically. Requested Prescriptions Signed Prescriptions Disp Refills pioglitazone (ACTOS) 15 mg tablet 90 tablet 1 Sig: Take 1 tablet by mouth once daily. Authorizing Provider: NADIR GRADY MD Patient called, he would like prescription sent to [facility] [place] today. Did contact Frida and she indicated that she did speak with Michael and she is ok with medication being sent [facility] but would need some system for Michael. Was talking to Frida about sending the medication for [facility] now to [facility] and our phone . Alayna Urrutia MA Spoke with Jaspal and gave her PCP instructions. Also spoke with patient and he would like for this medication to go to [facility]. In fact he would like all of this medication to go to [facility]. I will contact Jaspal to let her know. Alayna Urrutia MA Let Jaspal with [facility] know his Januvia is most likely the most expensive. Looking at his med sheet from [facility] the next two most costly are his [...] for review. Alayna Urrutia MA Jaspal with [facility] had called in and reported that [...] will contact them. Pt was seen in [facility] 05-14-22 and dx with ANA. Pt not able to do virtual apts. Please review and instruct Frida. Willing to bring in for an apt. Let Frida know. Pt's pharmacy is [facility] and gets pre packed sheets. Selma Echevarria LPN documented in this encounter [facility] 05-15-2022 Miscellaneous Notes The following approved [...] in next week to repeat labs. Symone اعللي LPN Left message for pt to contact office. Luis E Agudelo LPN As we discussed, a1c did go up to 7.8%. would he be willing to try januvia? Sodium level just borderline low.. recheck in 1 week, Rest of labs wnl. documented in this encounter [facility] 05-13-2022 Instructions Martha Boston PA-C - 05/13/2022 8:09 AM EDT Please complete labs today. We have increased zoloft to 50mg. Follow up in 6 weeks for recheck on the increase of zoloft. Follow up in 6 months medicare wellness exam. Make sure to schedule your eye exam documented in this encounter [facility] 05-13-2022 History of Present illness Narrative Chief Complaint Patient presents with: 6 Month Exam HPI Michael Boss is a 67 year old male who [...] Date 2D ECHO (EXEP) 01/16/2017 EF=60%, 1+ [place] and TI CATARACT EXTRACTION HX Left 10/2019 [...] (DELTASONE) 20 mg tablet One daily per cardioDr. kern ranolazine ER (RANEXA) 500 mg 12 hr tablet Take 1 tablet by mouth twice daily. Per cardioDr. Kern amantadine HCl (SYMMETREL) 100 mg capsule [...] tablet by mouth once daily. Managed by [facility] omega-3 fatty acids 1,000 mg [...] Martha Boston PA-C documented in this encounter [facility] 05-03-2022 Miscellaneous Notes Patient has been [...] Abdirahman Duong RN documented in this encounter [facility] 05-02-2022 Miscellaneous Notes Noted. Jaspal Odonnell LPN from [facility] called and is notified of providers [...] he had been on the Ranexa. Jennifer Blue, RN Let jaspal know if the symptoms just started then I would consider one of the newer meds he is on. Amantadine per his neurologist or the Ranexa or Midodrine per [facility] Jaspal Odonnell LPN from [facility] calling patient is complaining of his mouth burning if he eats any pickles or ketchup. He eats a lot of potato chips for the salt, that does not bother him. Patient has no open sores in his mouth at all. Asking if any of his medications may be causing this? Please advise documented in this encounter [facility] 04-30-2022 Miscellaneous Notes Jaspal advised of Dr Grady's message. She will contact office back if weaning instructions are needed. Luis E Agudelo LPN Let Jaspal know that I talked with patient via MY Chart and he told me he already had instructions on how to wean off the Amitriptyline. Ask her to check with him today when she sees him. If this is not the case let me know and I will address. Jaspal SAHNI from [facility] calling to check status of note. Office notes from 04/25 visit with Neuro says to discuss with Dr Grady to discontinue Amitriptyline. Jaspal has appt with patient at 10 am today, she is asking for weaning instructions please. Please advise Will forward note regarding tapering of amitriptyline to Neuro. Med list updated. Jaspal SAHNI from [facility] calls to report that patient had [...] Beverly Rawls RN documented in this encounter [facility] 04-27-2022 Miscellaneous Notes Please see pt's update. Luis E Agudelo LPN documented in this encounter [facility] 04-25-2022 Instructions Rin Gagnon APRN.FINANCIAL AGENT - 04/25/2022 2:35 PM EDT Ortostatic Hypotension. [...] or stationery bicycling. documented in this encounter [facility] 04-25-2022 History of Present illness Narrative Images from the original note were not included. 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 Managed by [facility] omega-3 fatty acids 1,000 mg [...] Date 2D ECHO (EXEP) 01/16/2017 EF=60%, 1+ NJ and TI CATARACT EXTRACTION HX Left 10/2019 [...] -- trauma, aneurysm repair/CTS release -- Dr. lLanes PAST SURGICAL HISTORY OF 2008 torn cartilage [...] 5/5 Elbow Flexion 5/5 5/5 Elbow Extension 5/5 5/5 Wrist Flexion 5/5 5/5 Wrist Extension 5/5 5/5 Finger Extension 5/5 5/5 Finger Flexion 5/5 5/5 Finger Abduction 5/5 5/5 Hip Flexion 5/5 5/5 Hip Adduction 5/5 5/5 Hip Abduction 5/5 5/5 Knee Flexion 5/5 5/5 Knee Extension 5/5 5/5 Ankle Dorsiflexion 5/5 5/5 Ankle Plantarflexion 5/5 5/5 Ankle Inversion 5/5 5/5 Ankle Eversion 5/5 5/5 Big Toe Extension 5/5 5/5 Movement/Coordination Finger-to- nose-finger and [id number] intact bilaterally. No evidence of ataxia arms. [...] walk. Romberg's sign is negative IMPRESSION/PLAN: Michael Boss is a 67 year old male with [...] would be difficulty to go to our [place] location to complete. Medications can also be [...] which included preparing to see the patient, [id number] patient care, completing clinical documentation, obtaining and/or [...] Eluting Coronary Stent Placement Diabetic Eye Exam ([facility]) Leg Pain, Bilateral Medicare Annual Wellness Visit, Subsequent Gerd Without Esophagitis Neuropathy Primary Insomnia Abnormal Dreams Medication Management Illiteracy Anemia of Chronic Disease History of Covid-19 No orders found for this visit on 04/25/22. Rin Gagnon APRN.CNP General Neurology [address] [place] [address]. [id number] Appointment: [phone] 1. This office note has been dictated [...] your PCP/referring physician documented in this encounter [facility] 04-19-2022 History of Present illness Narrative Chief Complaint Patient presents with: Medication Request HPI Michael Boss is a 67 year old male who [...] and that's how he was taken to [facility] ER. He himself recently had heart surgery [...] lumbar 06/30/2016 Multi level, worse L2-L3 Diabetes ([facility]) Diabetic eye exam ([facility]) 03/19/2017 Last done: 10/01/2018 Elevated LFTs 08/05/2015 [...] Date 2D ECHO (EXEP) 01/16/2017 EF=60%, 1+ [place] and TI CATARACT EXTRACTION HX Left 10/2019 [...] tablet by mouth once daily. Managed by [facility] omega-3 fatty acids 1,000 mg [...] Martha Boston PA-C documented in this encounter [facility] 04-09-2022 Miscellaneous Notes Frida was notified and will have patient call to schedule ER follow up Rosa Valentino Ma Please advise Frida that we do not have up to date papers listing her as power of fuel cell binder for health care. Also this title does not come into affect unless the patient can not speak for himself. I appreciate the info and would advise that Michael make an appt to be seen for ER follow up for tremors/anxiety. Patient POA calling office regarding patient episode of tremor that led to ER visit at [facility] over the weekend. Patient having increased stress currently due to son in hospital. Frida is asking for order of PRN Ativan for patient? (Pharmacy [facility]) TC to Frida with providers update. Frida is going to call pts PCP, Dr. Grady, to discuss anxiety and depression as well as possible referral to psychiatry. CALLIE Rodriguez Call received from Friad Cameron, dar emergency contact. Frida states that Michael was [...] for the tremors. Frida is asking that prescribe Michael Ativan to help with his anxiety due to her believing this is the cause of his tremors. Frida says they are not scheduled to see Rin [facility] until 05/09/2022 and therefore are reaching out to . Please advise. Thank you. CALLIE Rodriguez documented in this encounter [facility] 04-03-2022 Miscellaneous Notes The following approved [...] Selma Echevarria LPN documented in this encounter [facility] 03-25-2022 Miscellaneous Notes The following approved medication requests have been transmitted electronically. Pending Prescriptions Disp Refills NITROGLYCERIN 0.4 MG SUBLINGUAL TABLET 1 Bottle of 25 1 Sig: Dissolve 1 tablet under the tongue every 5 minutes as needed for chest pain. JOANNA: No Rashawn Hewitt APRN.FINANCIAL AGENT Patient has been identified by name and [...] Barbara Johnson Pss documented in this encounter [facility] 03-20-2022 Miscellaneous Notes Called the patient and relayed the provider's message of CT results. The patient understood the information provided. ----- Message from Jenna Jim APRN.FINANCIAL AGENT sent at 03/19/2022 5:21 PM EDT ----- CT of brain is normal and does not show any evidence of bleed. documented in this encounter [facility] 03-19-2022 History of Present illness Narrative Radiology Service Progress Note PATIENT NAME: Michael Boss DATE OF SERVICE: March 19, 2022 TIME: [...] 2022 3:05 PM documented in this encounter [facility] 03-19-2022 Miscellaneous Notes Addended by: JENNA [...] you. CALLIE Rodriguez documented in this encounter [facility] 02-26-2022 Miscellaneous Notes Patient has been [...] Zaira Singh Pss documented in this encounter [facility] 02-22-2022 Miscellaneous Notes Spoke with patient's RANJEET Frida. Discussed consult to autonomic clinic to address orthostatic hypotension prior to initiation of other medications. She is agreeable and states she would be able to drive patient to [place] (she lives in [place]). Consult placed. Will reach out to scheduling [...] may be able to drive him to [place] if that is closest location. Pt asking this provider to call his RANJEET to discuss this with her. Call placed to Frida; pt's RANJEET. No answer and voicemail left. Will attempt to contact again tomorrow. Cardiac testing done at [facility] has been scanned. 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 Previously noted to have low blood pressure [...] to follow with pain management as well. Frida/Qkvfkp-wl-sqa/POA is calling, has not heard back from the office on the next step would be. Please advise. Symone العلي LPN documented in this encounter [facility] 02-07-2022 History of Present illness Narrative Images from the original note were not included. [facility] Neurolog[facility] [place] New Patient visit New Patient Consultation February 07, 2022 HPI: Mr. Boss presents today secondary to issues of syncope. [...] Per Dr. Grady 10/25/21: Patient went to [facility] on 10/16/2021 after having 2 [...] dizzy before each episode. Patient went to [place] ER 10/16/2021 and BP then was 117/75, [...] Date 2D ECHO (EXEP) 01/16/2017 EF=60%, 1+ [place] and TI CATARACT EXTRACTION HX Left 10/2019 [...] mouth once daily. Managed by cardiology, Dr. Liya sharpilol (COREG) 3.125 mg tablet Take 1 tablet by mouth twice daily. clopidogrel (PLAVIX) 75 mg tablet Take 1 tablet by mouth once daily. Managed by [facility] omega-3 fatty acids 1,000 mg [...] He continues to follow regularly with his procurement analyst. Previously noted to have low blood pressure [...] which included preparing to see the patient, [id number] patient care, completing clinical documentation, obtaining and/or reviewing separately obtained history, performing a medically appropriate examination and counseling and educating the patient/family/caregiver. documented in this encounter [facility] 01-30-2022 Miscellaneous Notes The following approved [...] Madhuri Chapa LPN documented in this encounter [facility] 01-24-2022 Miscellaneous Notes Tian with [facility] called and requesting copy of last OV for pt. Pt was identified by name and date of . Faxed to [phone]. Selma Echevarria LPN documented in this encounter [facility] 01-04-2022 History of Present illness Narrative Scan on 01/04/2022 9:59 AM by External Provider: Consultation - Cardiology documented in this encounter [facility] 12-13-2021 Miscellaneous Notes PharmJevon spoke with [...] he is NOT taking amlodipine or lisinopril. PharmD reviewed med list which is accurate. Appears [...] if needs additional assistance. Karen Piper PharmD, [facility] Primary Care Clinical Pharmacist Selwyn Cali [facility] Kai called Frida but unable to reach, LEFT MESSAGE ON MACHINE to return call to office. Karen Feliz, PharmD, BCPS Primary Care Clinical Pharmacist Rhea HARRIS [facility] Patient's sister Frida calls and is [...] Beverly Rawls RN documented in this encounter [facility] 11-22-2021 Miscellaneous Notes Patient notified of results, verbalizes understanding of instructions. Paula Donaldson LPN Let patient know urine and blood protein studies were normal. Bleeding studies were normal. BMP was ok except for elevated blood sugar. documented in this encounter [facility] 06-29-2021 Miscellaneous Notes Patient notified and [...] 5 days- please read instructions when you leaf size picker at pharmacy as you take two tablets of zpack today then it is one a day. If chest symptoms persist follow-up with PCP or procurement analyst. Medications sent to [facility] in [place]. Thanks, Ade Garcia APRN.FINANCIAL AGENT documented in this encounter [facility] documented as of this encounter (statuses as of 12/03/2021) [facility] History of Past illness Narrative* Problem Noted Date Resolved Date Well adult exam 10/03/2016 04/12/2020 Overview: last done: 07/16/19. does not want colonoscopies. Other physical therapy 08/16/2010 0 Sprain of neck 07/30/2010 08/30/2010 Unspecified pruritic disorder 03/02/2009 Cervicalgia 10/16/2006 10/30/2018 Hyperlipidemia 08/04/2015 documented as of this encounter (statuses as of 12/13/2021) [facility] History of Past illness Narrative* Problem Noted Date Resolved Date Well adult exam 10/03/2016 04/12/2020 Overview: last done: 07/16/19. does not want colonoscopies. Other physical therapy 08/16/2010 0 Sprain of neck 07/30/2010 08/30/2010 Unspecified pruritic disorder 03/02/2009 Cervicalgia 10/16/2006 10/30/2018 Hyperlipidemia 08/04/2015 documented as of this encounter (statuses as of 01/07/2022) [facility] History of Past illness Narrative* Problem Noted Date Resolved Date Well adult exam 10/03/2016 04/12/2020 Overview: last done: 07/16/19. does not want colonoscopies. Other physical therapy 08/16/2010 0 Sprain of neck 07/30/2010 08/30/2010 Unspecified pruritic disorder 03/02/2009 Cervicalgia 10/16/2006 10/30/2018 Hyperlipidemia 08/04/2015 documented as of this encounter (statuses as of 01/24/2022) [facility] History of Past illness Narrative* Problem Noted Date Resolved Date Well adult exam 10/03/2016 04/12/2020 Overview: last done: 07/16/19. does not want colonoscopies. Other physical therapy 08/16/2010 0 Sprain of neck 07/30/2010 08/30/2010 Unspecified pruritic disorder 03/02/2009 Cervicalgia 10/16/2006 10/30/2018 Hyperlipidemia 08/04/2015 documented as of this encounter (statuses as of 01/30/2022) [facility]02-[facility]2017 History of Past illness Narrative* Problem Noted Date Resolved Date Well adult exam 10/03/2016 04/12/2020 Overview: last done: 07/16/19. does not want colonoscopies. Other physical therapy 08/16/2010 0 Sprain of neck 07/30/2010 08/30/2010 Unspecified pruritic disorder 03/02/2009 Cervicalgia 10/16/2006 10/30/2018 Hyperlipidemia 08/04/2015 documented as of this encounter (statuses as of 01/31/2022) [facility] History of Past illness Narrative* Problem Noted Date Resolved Date Well adult exam 10/03/2016 04/12/2020 Overview: last done: 07/16/19. does not want colonoscopies. Other physical therapy 08/16/2010 0 Sprain of neck 07/30/2010 08/30/2010 Unspecified pruritic disorder 03/02/2009 Cervicalgia 10/16/2006 10/30/2018 Hyperlipidemia 08/04/2015 documented as of this encounter (statuses as of 02/11/2022) [facility] History of Past illness Narrative* Problem Noted Date Resolved Date Well adult exam 10/03/2016 04/12/2020 Overview: last done: 07/16/19. does not want colonoscopies. Other physical therapy 08/16/2010 0 Sprain of neck 07/30/2010 08/30/2010 Unspecified pruritic disorder 03/02/2009 Cervicalgia 10/16/2006 10/30/2018 Hyperlipidemia 08/04/2015 documented as of this encounter (statuses as of 02/22/2022) [facility] History of Past illness Narrative* Problem Noted Date Resolved Date Well adult exam 10/03/2016 04/12/2020 Overview: last done: 07/16/19. does not want colonoscopies. Other physical therapy 08/16/2010 0 Sprain of neck 07/30/2010 08/30/2010 Unspecified pruritic disorder 03/02/2009 Cervicalgia 10/16/2006 10/30/2018 Hyperlipidemia 08/04/2015 documented as of this encounter (statuses as of 02/26/2022) [facility] History of Past illness Narrative* Problem Noted Date Resolved Date Well adult exam 10/03/2016 04/12/2020 Overview: last done: 07/16/19. does not want colonoscopies. Other physical therapy 08/16/2010 0 Sprain of neck 07/30/2010 08/30/2010 Unspecified pruritic disorder 03/02/2009 Cervicalgia 10/16/2006 10/30/2018 Hyperlipidemia 08/04/2015 documented as of this encounter (statuses as of 03/19/2022) [facility] History of Past illness Narrative* Problem Noted Date Resolved Date Well adult exam 10/03/2016 04/12/2020 Overview: last done: 07/16/19. does not want colonoscopies. Other physical therapy 08/16/2010 0 Sprain of neck 07/30/2010 08/30/2010 Unspecified pruritic disorder 03/02/2009 Cervicalgia 10/16/2006 10/30/2018 Hyperlipidemia 08/04/2015 documented as of this encounter (statuses as of 03/20/2022) [facility] History of Past illness Narrative* Problem Noted Date Resolved Date Well adult exam 10/03/2016 04/12/2020 Overview: last done: 07/16/19. does not want colonoscopies. Other physical therapy 08/16/2010 0 Sprain of neck 07/30/2010 08/30/2010 Unspecified pruritic disorder 03/02/2009 Cervicalgia 10/16/2006 10/30/2018 Hyperlipidemia 08/04/2015 documented as of this encounter (statuses as of 03/20/2022) [facility] History of Past illness Narrative* Problem Noted Date Resolved Date Well adult exam 10/03/2016 04/12/2020 Overview: last done: 07/16/19. does not want colonoscopies. Other physical therapy 08/16/2010 0 Sprain of neck 07/30/2010 08/30/2010 Unspecified pruritic disorder 03/02/2009 Cervicalgia 10/16/2006 10/30/2018 Hyperlipidemia 08/04/2015 documented as of this encounter (statuses as of 03/25/2022) [facility] History of Past illness Narrative* Problem Noted Date Resolved Date Well adult exam 10/03/2016 04/12/2020 Overview: last done: 07/16/19. does not want colonoscopies. Other physical therapy 08/16/2010 0 Sprain of neck 07/30/2010 08/30/2010 Unspecified pruritic disorder 03/02/2009 Cervicalgia 10/16/2006 10/30/2018 Hyperlipidemia 08/04/2015 documented as of this encounter (statuses as of 04/04/2022) [facility] History of Past illness Narrative* Problem Noted Date Resolved Date Well adult exam 10/03/2016 04/12/2020 Overview: last done: 07/16/19. does not want colonoscopies. Other physical therapy 08/16/2010 0 Sprain of neck 07/30/2010 08/30/2010 Unspecified pruritic disorder 03/02/2009 Cervicalgia 10/16/2006 10/30/2018 Hyperlipidemia 08/04/2015 documented as of this encounter (statuses as of 04/09/2022) [facility] History of Past illness Narrative* Problem Noted Date Resolved Date Well adult exam 10/03/2016 04/12/2020 Overview: last done: 07/16/19. does not want colonoscopies. Other physical therapy 08/16/2010 0 Sprain of neck 07/30/2010 08/30/2010 Unspecified pruritic disorder 03/02/2009 Cervicalgia 10/16/2006 10/30/2018 Hyperlipidemia 08/04/2015 documented as of this encounter (statuses as of 04/19/2022) [facility] History of Past illness Narrative* Problem Noted Date Resolved Date Well adult exam 10/03/2016 04/12/2020 Overview: last done: 07/16/19. does not want colonoscopies. Other physical therapy 08/16/2010 0 Sprain of neck 07/30/2010 08/30/2010 Unspecified pruritic disorder 03/02/2009 Cervicalgia 10/16/2006 10/30/2018 Hyperlipidemia 08/04/2015 documented as of this encounter (statuses as of 04/26/2022) [facility] History of Past illness Narrative* Problem Noted Date Resolved Date Well adult exam 10/03/2016 04/12/2020 Overview: last done: 07/16/19. does not want colonoscopies. Other physical therapy 08/16/2010 0 Sprain of neck 07/30/2010 08/30/2010 Unspecified pruritic disorder 03/02/2009 Cervicalgia 10/16/2006 10/30/2018 Hyperlipidemia 08/04/2015 documented as of this encounter (statuses as of 04/28/2022) [facility] History of Past illness Narrative* Problem Noted Date Resolved Date Well adult exam 10/03/2016 04/12/2020 Overview: last done: 07/16/19. does not want colonoscopies. Other physical therapy 08/16/2010 0 Sprain of neck 07/30/2010 08/30/2010 Unspecified pruritic disorder 03/02/2009 Cervicalgia 10/16/2006 10/30/2018 Hyperlipidemia 08/04/2015 documented as of this encounter (statuses as of 04/30/2022) [facility] History of Past illness Narrative* Problem Noted Date Resolved Date Well adult exam 10/03/2016 04/12/2020 Overview: last done: 07/16/19. does not want colonoscopies. Other physical therapy 08/16/2010 0 Sprain of neck 07/30/2010 08/30/2010 Unspecified pruritic disorder 03/02/2009 Cervicalgia 10/16/2006 10/30/2018 Hyperlipidemia 08/04/2015 documented as of this encounter (statuses as of 05/02/2022) [facility] History of Past illness Narrative* Problem Noted Date Resolved Date Well adult exam 10/03/2016 04/12/2020 Overview: last done: 07/16/19. does not want colonoscopies. Other physical therapy 08/16/2010 0 Sprain of neck 07/30/2010 08/30/2010 Unspecified pruritic disorder 03/02/2009 Cervicalgia 10/16/2006 10/30/2018 Hyperlipidemia 08/04/2015 documented as of this encounter (statuses as of 05/03/2022) [facility] History of Past illness Narrative* Problem Noted Date Resolved Date Well adult exam 10/03/2016 04/12/2020 Overview: last done: 07/16/19. does not want colonoscopies. Other physical therapy 08/16/2010 0 Sprain of neck 07/30/2010 08/30/2010 Unspecified pruritic disorder 03/02/2009 Cervicalgia 10/16/2006 10/30/2018 Hyperlipidemia 08/04/2015 documented as of this encounter (statuses as of 05/13/2022) [facility] History of Past illness Narrative* Problem Noted Date Resolved Date Well adult exam 10/03/2016 04/12/2020 Overview: last done: 07/16/19. does not want colonoscopies. Other physical therapy 08/16/2010 0 Sprain of neck 07/30/2010 08/30/2010 Unspecified pruritic disorder 03/02/2009 Cervicalgia 10/16/2006 10/30/2018 Hyperlipidemia 08/04/2015 documented as of this encounter (statuses as of 05/15/2022) [facility] History of Past illness Narrative* Problem Noted Date Resolved Date Well adult exam 10/03/2016 04/12/2020 Overview: last done: 07/16/19. does not want colonoscopies. Other physical therapy 08/16/2010 0 Sprain of neck 07/30/2010 08/30/2010 Unspecified pruritic disorder 03/02/2009 Cervicalgia 10/16/2006 10/30/2018 Hyperlipidemia 08/04/2015 documented as of this encounter (statuses as of 05/25/2022) [facility] History of Past illness Narrative* Problem Noted Date Resolved Date Well adult exam 10/03/2016 04/12/2020 Overview: last done: 07/16/19. does not want colonoscopies. Other physical therapy 08/16/2010 0 Sprain of neck 07/30/2010 08/30/2010 Unspecified pruritic disorder 03/02/2009 Cervicalgia 10/16/2006 10/30/2018 Hyperlipidemia 08/04/2015 documented as of this encounter (statuses as of 05/28/2022) [facility] History of Past illness Narrative* Problem Noted Date Resolved Date Well adult exam 10/03/2016 04/12/2020 Overview: last done: 07/16/19. does not want colonoscopies. Other physical therapy 08/16/2010 0 Sprain of neck 07/30/2010 08/30/2010 Unspecified pruritic disorder 03/02/2009 Cervicalgia 10/16/2006 10/30/2018 Hyperlipidemia 08/04/2015 documented as of this encounter (statuses as of 05/29/2022) [facility] History of Past illness Narrative* Problem Noted Date Resolved Date Well adult exam 10/03/2016 04/12/2020 Overview: last done: 07/16/19. does not want colonoscopies. Other physical therapy 08/16/2010 0 Sprain of neck 07/30/2010 08/30/2010 Unspecified pruritic disorder 03/02/2009 Cervicalgia 10/16/2006 10/30/2018 Hyperlipidemia 08/04/2015 documented as of this encounter (statuses as of 05/30/2022) [facility] History of Past illness Narrative* Problem Noted Date Resolved Date Well adult exam 10/03/2016 04/12/2020 Overview: last done: 07/16/19. does not want colonoscopies. Other physical therapy 08/16/2010 0 Sprain of neck 07/30/2010 08/30/2010 Unspecified pruritic disorder 03/02/2009 Cervicalgia 10/16/2006 10/30/2018 Hyperlipidemia 08/04/2015 documented as of this encounter (statuses as of 06/20/2022) [facility] History of Past illness Narrative* Problem Noted Date Resolved Date Well adult exam 10/03/2016 04/12/2020 Overview: last done: 07/16/19. does not want colonoscopies. Other physical therapy 08/16/2010 0 Sprain of neck 07/30/2010 08/30/2010 Unspecified pruritic disorder 03/02/2009 Cervicalgia 10/16/2006 10/30/2018 Hyperlipidemia 08/04/2015 documented as of this encounter (statuses as of 06/25/2022) [facility] History of Past illness Narrative* Problem Noted Date Resolved Date Well adult exam 10/03/2016 04/12/2020 Overview: last done: 07/16/19. does not want colonoscopies. Other physical therapy 08/16/2010 0 Sprain of neck 07/30/2010 08/30/2010 Unspecified pruritic disorder 03/02/2009 Cervicalgia 10/16/2006 10/30/2018 Hyperlipidemia 08/04/2015 documented as of this encounter (statuses as of 06/25/2022) [facility] History of Past illness Narrative* Problem Noted Date Resolved Date Well adult exam 10/03/2016 04/12/2020 Overview: last done: 07/16/19. does not want colonoscopies. Other physical therapy 08/16/2010 0 Sprain of neck 07/30/2010 08/30/2010 Unspecified pruritic disorder 03/02/2009 Cervicalgia 10/16/2006 10/30/2018 Hyperlipidemia 08/04/2015 documented as of this encounter (statuses as of 06/26/2022) [facility] History of Past illness Narrative* Problem Noted Date Resolved Date Well adult exam 10/03/2016 04/12/2020 Overview: last done: 07/16/19. does not want colonoscopies. Other physical therapy 08/16/2010 0 Sprain of neck 07/30/2010 08/30/2010 Unspecified pruritic disorder 03/02/2009 Cervicalgia 10/16/2006 10/30/2018 Hyperlipidemia 08/04/2015 documented as of this encounter (statuses as of 06/27/2022) [facility] History of Past illness Narrative* Problem Noted Date Resolved Date Well adult exam 10/03/2016 04/12/2020 Overview: last done: 07/16/19. does not want colonoscopies. Other physical therapy 08/16/2010 0 Sprain of neck 07/30/2010 08/30/2010 Unspecified pruritic disorder 03/02/2009 Cervicalgia 10/16/2006 10/30/2018 Hyperlipidemia 08/04/2015 documented as of this encounter (statuses as of 07/02/2022) [facility] History of Past illness Narrative* Problem Noted Date Resolved Date Well adult exam 10/03/2016 04/12/2020 Overview: last done: 07/16/19. does not want colonoscopies. Other physical therapy 08/16/2010 0 Sprain of neck 07/30/2010 08/30/2010 Unspecified pruritic disorder 03/02/2009 Cervicalgia 10/16/2006 10/30/2018 Hyperlipidemia 08/04/2015 documented as of this encounter (statuses as of 07/02/2022) [facility] History of Past illness Narrative* Problem Noted Date Resolved Date Well adult exam 10/03/2016 04/12/2020 Overview: last done: 07/16/19. does not want colonoscopies. Other physical therapy 08/16/2010 0 Sprain of neck 07/30/2010 08/30/2010 Unspecified pruritic disorder 03/02/2009 Cervicalgia 10/16/2006 10/30/2018 Hyperlipidemia 08/04/2015 documented as of this encounter (statuses as of 07/05/2022) [facility] History of Past illness Narrative* Problem Noted Date Resolved Date Well adult exam 10/03/2016 04/12/2020 Overview: last done: 07/16/19. does not want colonoscopies. Other physical therapy 08/16/2010 0 Sprain of neck 07/30/2010 08/30/2010 Unspecified pruritic disorder 03/02/2009 Cervicalgia 10/16/2006 10/30/2018 Hyperlipidemia 08/04/2015 documented as of this encounter (statuses as of 07/10/2022) [facility] History of Past illness Narrative* Problem Noted Date Resolved Date Well adult exam 10/03/2016 04/12/2020 Overview: last done: 07/16/19. does not want colonoscopies. Other physical therapy 08/16/2010 0 Sprain of neck 07/30/2010 08/30/2010 Unspecified pruritic disorder 03/02/2009 Cervicalgia 10/16/2006 10/30/2018 Hyperlipidemia 08/04/2015 documented as of this encounter (statuses as of 07/10/2022) [facility] History of Past illness Narrative* Problem Noted Date Resolved Date Well adult exam 10/03/2016 04/12/2020 Overview: last done: 07/16/19. does not want colonoscopies. Other physical therapy 08/16/2010 0 Sprain of neck 07/30/2010 08/30/2010 Unspecified pruritic disorder 03/02/2009 Cervicalgia 10/16/2006 10/30/2018 Hyperlipidemia 08/04/2015 documented as of this encounter (statuses as of 07/11/2022) [facility] History of Past illness Narrative* Problem Noted Date Resolved Date Well adult exam 10/03/2016 04/12/2020 Overview: last done: 07/16/19. does not want colonoscopies. Other physical therapy 08/16/2010 0 Sprain of neck 07/30/2010 08/30/2010 Unspecified pruritic disorder 03/02/2009 Cervicalgia 10/16/2006 10/30/2018 Hyperlipidemia 08/04/2015 documented as of this encounter (statuses as of 07/12/2022) [facility] History of Past illness Narrative* Problem Noted Date Resolved Date Well adult exam 10/03/2016 04/12/2020 Overview: last done: 07/16/19. does not want colonoscopies. Other physical therapy 08/16/2010 0 Sprain of neck 07/30/2010 08/30/2010 Unspecified pruritic disorder 03/02/2009 Cervicalgia 10/16/2006 10/30/2018 Hyperlipidemia 08/04/2015 documented as of this encounter (statuses as of 07/29/2022) [facility] History of Past illness Narrative* Problem Noted Date Resolved Date Well adult exam 10/03/2016 04/12/2020 Overview: last done: 07/16/19. does not want colonoscopies. Other physical therapy 08/16/2010 0 Sprain of neck 07/30/2010 08/30/2010 Unspecified pruritic disorder 03/02/2009 Cervicalgia 10/16/2006 10/30/2018 Hyperlipidemia 08/04/2015 documented as of this encounter (statuses as of 07/30/2022) [facility] History of Past illness Narrative* Problem Noted Date Resolved Date Well adult exam 10/03/2016 04/12/2020 Overview: last done: 07/16/19. does not want colonoscopies. Other physical therapy 08/16/2010 0 Sprain of neck 07/30/2010 08/30/2010 Unspecified pruritic disorder 03/02/2009 Cervicalgia 10/16/2006 10/30/2018 Hyperlipidemia 08/04/2015 documented as of this encounter (statuses as of 08/05/2022) [facility] History of Past illness Narrative* Problem Noted Date Resolved Date Well adult exam 10/03/2016 04/12/2020 Overview: last done: 07/16/19. does not want colonoscopies. Other physical therapy 08/16/2010 0 Sprain of neck 07/30/2010 08/30/2010 Unspecified pruritic disorder 03/02/2009 Cervicalgia 10/16/2006 10/30/2018 Hyperlipidemia 08/04/2015 documented as of this encounter (statuses as of 08/07/2022) [facility] History of Past illness Narrative* Problem Noted Date Resolved Date Well adult exam 10/03/2016 04/12/2020 Overview: last done: 07/16/19. does not want colonoscopies. Other physical therapy 08/16/2010 0 Sprain of neck 07/30/2010 08/30/2010 Unspecified pruritic disorder 03/02/2009 Cervicalgia 10/16/2006 10/30/2018 Hyperlipidemia 08/04/2015 documented as of this encounter (statuses as of 08/23/2022) [facility] History of Past illness Narrative* Problem Noted Date Resolved Date Well adult exam 10/03/2016 04/12/2020 Overview: last done: 07/16/19. does not want colonoscopies. Other physical therapy 08/16/2010 0 Sprain of neck 07/30/2010 08/30/2010 Unspecified pruritic disorder 03/02/2009 Cervicalgia 10/16/2006 10/30/2018 Hyperlipidemia 08/04/2015 documented as of this encounter (statuses as of 08/23/2022) [facility] History of Past illness Narrative* Problem Noted Date Resolved Date Well adult exam 10/03/2016 04/12/2020 Overview: last done: 07/16/19. does not want colonoscopies. Other physical therapy 08/16/2010 0 Sprain of neck 07/30/2010 08/30/2010 Unspecified pruritic disorder 03/02/2009 Cervicalgia 10/16/2006 10/30/2018 Hyperlipidemia 08/04/2015 documented as of this encounter (statuses as of 09/03/2022) [facility] History of Past illness Narrative* Problem Noted Date Resolved Date Well adult exam 10/03/2016 04/12/2020 Overview: last done: 07/16/19. does not want colonoscopies. Other physical therapy 08/16/2010 0 Sprain of neck 07/30/2010 08/30/2010 Unspecified pruritic disorder 03/02/2009 Cervicalgia 10/16/2006 10/30/2018 Hyperlipidemia 08/04/2015 documented as of this encounter (statuses as of 09/04/2022) [facility] History of Past illness Narrative* Problem Noted Date Resolved Date Well adult exam 10/03/2016 04/12/2020 Overview: last done: 07/16/19. does not want colonoscopies. Other physical therapy 08/16/2010 0 Sprain of neck 07/30/2010 08/30/2010 Unspecified pruritic disorder 03/02/2009 Cervicalgia 10/16/2006 10/30/2018 Hyperlipidemia 08/04/2015 documented as of this encounter (statuses as of 09/06/2022) [facility] History of Past illness Narrative* Problem Noted Date Resolved Date Well adult exam 10/03/2016 04/12/2020 Overview: last done: 07/16/19. does not want colonoscopies. Other physical therapy 08/16/2010 0 Sprain of neck 07/30/2010 08/30/2010 Unspecified pruritic disorder 03/02/2009 Cervicalgia 10/16/2006 10/30/2018 Hyperlipidemia 08/04/2015 documented as of this encounter (statuses as of 09/24/2022) [facility] History of Past illness Narrative* Problem Noted Date Resolved Date Well adult exam 10/03/2016 04/12/2020 Overview: last done: 07/16/19. does not want colonoscopies. Other physical therapy 08/16/2010 0 Sprain of neck 07/30/2010 08/30/2010 Unspecified pruritic disorder 03/02/2009 Cervicalgia 10/16/2006 10/30/2018 Hyperlipidemia 08/04/2015 documented as of this encounter (statuses as of 09/24/2022) [facility] History of Past illness Narrative* Problem Noted Date Resolved Date Well adult exam 10/03/2016 04/12/2020 Overview: last done: 07/16/19. does not want colonoscopies. Other physical therapy 08/16/2010 0 Sprain of neck 07/30/2010 08/30/2010 Unspecified pruritic disorder 03/02/2009 Cervicalgia 10/16/2006 10/30/2018 Hyperlipidemia 08/04/2015 documented as of this encounter (statuses as of 09/24/2022) [facility] History of Past illness Narrative* Problem Noted Date Resolved Date Well adult exam 10/03/2016 04/12/2020 Overview: last done: 07/16/19. does not want colonoscopies. Other physical therapy 08/16/2010 0 Sprain of neck 07/30/2010 08/30/2010 Unspecified pruritic disorder 03/02/2009 Cervicalgia 10/16/2006 10/30/2018 Hyperlipidemia 08/04/2015 documented as of this encounter (statuses as of 10/02/2022) [facility] History of Past illness Narrative* Problem Noted Date Resolved Date Well adult exam 10/03/2016 04/12/2020 Overview: last done: 07/16/19. does not want colonoscopies. Other physical therapy 08/16/2010 0 Sprain of neck 07/30/2010 08/30/2010 Unspecified pruritic disorder 03/02/2009 Cervicalgia 10/16/2006 10/30/2018 Hyperlipidemia 08/04/2015 documented as of this encounter (statuses as of 10/08/2022) [facility] History of Past illness Narrative* Problem Noted Date Resolved Date Well adult exam 10/03/2016 04/12/2020 Overview: last done: 07/16/19. does not want colonoscopies. Other physical therapy 08/16/2010 0 Sprain of neck 07/30/2010 08/30/2010 Unspecified pruritic disorder 03/02/2009 Cervicalgia 10/16/2006 10/30/2018 Hyperlipidemia 08/04/2015 documented as of this encounter (statuses as of 10/15/2022) [facility] History of Past illness Narrative* Problem Noted Date Resolved Date Well adult exam 10/03/2016 04/12/2020 Overview: last done: 07/16/19. does not want colonoscopies. Other physical therapy 08/16/2010 0 Sprain of neck 07/30/2010 08/30/2010 Unspecified pruritic disorder 03/02/2009 Cervicalgia 10/16/2006 10/30/2018 Hyperlipidemia 08/04/2015 documented as of this encounter (statuses as of 10/24/2022) [facility] History of Past illness Narrative* Problem Noted Date Resolved Date Well adult exam 10/03/2016 04/12/2020 Overview: last done: 07/16/19. does not want colonoscopies. Other physical therapy 08/16/2010 0 Sprain of neck 07/30/2010 08/30/2010 Unspecified pruritic disorder 03/02/2009 Cervicalgia 10/16/2006 10/30/2018 Hyperlipidemia 08/04/2015 documented as of this encounter (statuses as of 11/05/2022) [facility] History of Past illness Narrative* Problem Noted Date Resolved Date Well adult exam 10/03/2016 04/12/2020 Overview: last done: 07/16/19. does not want colonoscopies. Other physical therapy 08/16/2010 0 Sprain of neck 07/30/2010 08/30/2010 Unspecified pruritic disorder 03/02/2009 Cervicalgia 10/16/2006 10/30/2018 Hyperlipidemia 08/04/2015 documented as of this encounter (statuses as of 11/05/2022) [facility] History of Past illness Narrative* Problem Noted Date Resolved Date Well adult exam 10/03/2016 04/12/2020 Overview: last done: 07/16/19. does not want colonoscopies. Other physical therapy 08/16/2010 0 Sprain of neck 07/30/2010 08/30/2010 Unspecified pruritic disorder 03/02/2009 Cervicalgia 10/16/2006 10/30/2018 Hyperlipidemia 08/04/2015 documented as of this encounter (statuses as of 11/12/2022) [facility] History of Past illness Narrative* Problem Noted Date Resolved Date Well adult exam 10/03/2016 04/12/2020 Overview: last done: 07/16/19. does not want colonoscopies. Other physical therapy 08/16/2010 0 Sprain of neck 07/30/2010 08/30/2010 Unspecified pruritic disorder 03/02/2009 Cervicalgia 10/16/2006 10/30/2018 Hyperlipidemia 08/04/2015 documented as of this encounter (statuses as of 11/14/2022) [facility] History of Past illness Narrative* Problem Noted Date Resolved Date Well adult exam 10/03/2016 04/12/2020 Overview: last done: 07/16/19. does not want colonoscopies. Other physical therapy 08/16/2010 0 Sprain of neck 07/30/2010 08/30/2010 Unspecified pruritic disorder 03/02/2009 Cervicalgia 10/16/2006 10/30/2018 Hyperlipidemia 08/04/2015 documented as of this encounter (statuses as of 11/21/2022) [facility] History of Past illness Narrative* Problem Noted Date Resolved Date Well adult exam 10/03/2016 04/12/2020 Overview: last done: 07/16/19. does not want colonoscopies. Other physical therapy 08/16/2010 0 Sprain of neck 07/30/2010 08/30/2010 Unspecified pruritic disorder 03/02/2009 Cervicalgia 10/16/2006 10/30/2018 Hyperlipidemia 08/04/2015 documented as of this encounter (statuses as of 11/28/2022) [facility] History of Past illness Narrative* Problem Noted Date Resolved Date Well adult exam 10/03/2016 04/12/2020 Overview: last done: 07/16/19. does not want colonoscopies. Other physical therapy 08/16/2010 0 Sprain of neck 07/30/2010 08/30/2010 Unspecified pruritic disorder 03/02/2009 Cervicalgia 10/16/2006 10/30/2018 Hyperlipidemia 08/04/2015 documented as of this encounter (statuses as of 11/29/2022) [facility] History of Past illness Narrative* Problem Noted Date Resolved Date Well adult exam 10/03/2016 04/12/2020 Overview: last done: 07/16/19. does not want colonoscopies. Other physical therapy 08/16/2010 0 Sprain of neck 07/30/2010 08/30/2010 Unspecified pruritic disorder 03/02/2009 Cervicalgia 10/16/2006 10/30/2018 Hyperlipidemia 08/04/2015 documented as of this encounter (statuses as of 01/08/2023) [facility] History of Past illness Narrative* Problem Noted Date Resolved Date Well adult exam 10/03/2016 04/12/2020 Overview: last done: 07/16/19. does not want colonoscopies. Other physical therapy 08/16/2010 0 Sprain of neck 07/30/2010 08/30/2010 Unspecified pruritic disorder 03/02/2009 Cervicalgia 10/16/2006 10/30/2018 Hyperlipidemia 08/04/2015 documented as of this encounter (statuses as of 02/04/2023) [facility] History of Past illness Narrative* Problem Noted Date Resolved Date Well adult exam 10/03/2016 04/12/2020 Overview: last done: 07/16/19. does not want colonoscopies. Other physical therapy 08/16/2010 0 Sprain of neck 07/30/2010 08/30/2010 Unspecified pruritic disorder 03/02/2009 Cervicalgia 10/16/2006 10/30/2018 Hyperlipidemia 08/04/2015 documented as of this encounter (statuses as of 02/24/2023) [facility] History of Past illness Narrative* Problem Noted Date Diagnosed Date Resolved Date Well adult exam 10/03/2016 04/12/2020 Overview: last done: 07/16/19. does not want colonoscopies. Other physical therapy 08/16/201008/30 Sprain of neck 07/30/2010 08/30/2010 Unspecified pruritic disorder 03/02/2009 04/12/2020 Cervicalgia 10/16/2006 10/30/2018 Hyperlipidemia 08/04/2015 documented as of this encounter (statuses as of 03/10/2023) [facility] History of Past illness Narrative* Problem Noted Date Diagnosed Date Resolved Date Well adult exam 10/03/2016 04/12/2020 Overview: last done: 07/16/19. does not want colonoscopies. Other physical therapy 08/16/201008/30 Sprain of neck 07/30/2010 08/30/2010 Unspecified pruritic disorder 03/02/2009 04/12/2020 Cervicalgia 10/16/2006 10/30/2018 Hyperlipidemia 08/04/2015 documented as of this encounter (statuses as of 04/01/2023) [facility] History of Past illness Narrative* Problem Noted Date Diagnosed Date Resolved Date Well adult exam 10/03/2016 04/12/2020 Overview: last done: 07/16/19. does not want colonoscopies. Other physical therapy 08/16/201008/30 Sprain of neck 07/30/2010 08/30/2010 Unspecified pruritic disorder 03/02/2009 04/12/2020 Cervicalgia 10/16/2006 10/30/2018 Hyperlipidemia 08/04/2015 documented as of this encounter (statuses as of 04/02/2023) [facility] History of Past illness Narrative* Problem Noted Date Diagnosed Date Resolved Date Well adult exam 10/03/2016 04/12/2020 Overview: last done: 07/16/19. does not want colonoscopies. Other physical therapy 08/16/201008/30 Sprain of neck 07/30/2010 08/30/2010 Unspecified pruritic disorder 03/02/2009 04/12/2020 Cervicalgia 10/16/2006 10/30/2018 Hyperlipidemia 08/04/2015 documented as of this encounter (statuses as of 04/03/2023) [facility] History of Past illness Narrative* Problem Noted Date Diagnosed Date Resolved Date Well adult exam 10/03/2016 04/12/2020 Overview: last done: 07/16/19. does not want colonoscopies. Other physical therapy 08/16/201008/30 Sprain of neck 07/30/2010 08/30/2010 Unspecified pruritic disorder 03/02/2009 04/12/2020 Cervicalgia 10/16/2006 10/30/2018 Hyperlipidemia 08/04/2015 documented as of this encounter (statuses as of 04/05/2023) [facility] History of Past illness Narrative* Problem Noted Date Diagnosed Date Resolved Date Well adult exam 10/03/2016 04/12/2020 Overview: last done: 07/16/19. does not want colonoscopies. Other physical therapy 08/16/201008/30 Sprain of neck 07/30/2010 08/30/2010 Unspecified pruritic disorder 03/02/2009 04/12/2020 Cervicalgia 10/16/2006 10/30/2018 Hyperlipidemia 08/04/2015 documented as of this encounter (statuses as of 04/12/2023) [facility] History of Past illness Narrative* Problem Noted Date Diagnosed Date Resolved Date Well adult exam 10/03/2016 04/12/2020 Overview: last done: 07/16/19. does not want colonoscopies. Other physical therapy 08/16/201008/30 Sprain of neck 07/30/2010 08/30/2010 Unspecified pruritic disorder 03/02/2009 04/12/2020 Cervicalgia 10/16/2006 10/30/2018 Hyperlipidemia 08/04/2015 documented as of this encounter (statuses as of 05/18/2023) [facility] History of Past illness Narrative* Problem Noted Date Diagnosed Date Resolved Date Well adult exam 10/03/2016 04/12/2020 Overview: last done: 07/16/19. does not want colonoscopies. Other physical therapy 08/16/201008/30 Sprain of neck 07/30/2010 08/30/2010 Unspecified pruritic disorder 03/02/2009 04/12/2020 Cervicalgia 10/16/2006 10/30/2018 Hyperlipidemia 08/04/2015 documented as of this encounter (statuses as of 06/19/2023) [facility] History of Past illness Narrative* Problem Noted Date Diagnosed Date Resolved Date Well adult exam 10/03/2016 04/12/2020 Overview: last done: 07/16/19. does not want colonoscopies. Other physical therapy 08/16/201008/30 Sprain of neck 07/30/2010 08/30/2010 Unspecified pruritic disorder 03/02/2009 04/12/2020 Cervicalgia 10/16/2006 10/30/2018 Hyperlipidemia 08/04/2015 documented as of this encounter (statuses as of 06/26/2023) [facility] History of Past illness Narrative* Problem Noted Date Diagnosed Date Resolved Date Well adult exam 10/03/2016 04/12/2020 Overview: last done: 07/16/19. does not want colonoscopies. Other physical therapy 08/16/201008/30 Sprain of neck 07/30/2010 08/30/2010 Unspecified pruritic disorder 03/02/2009 04/12/2020 Cervicalgia 10/16/2006 10/30/2018 Hyperlipidemia 08/04/2015 documented as of this encounter (statuses as of 06/27/2023) [facility] History of Past illness Narrative* Problem Noted Date Diagnosed Date Resolved Date Well adult exam 10/03/2016 04/12/2020 Overview: last done: 07/16/19. does not want colonoscopies. Other physical therapy 08/16/201008/30 Sprain of neck 07/30/2010 08/30/2010 Unspecified pruritic disorder 03/02/2009 04/12/2020 Cervicalgia 10/16/2006 10/30/2018 Hyperlipidemia 08/04/2015 documented as of this encounter (statuses as of 06/27/2023) [facility] History of Past illness Narrative* Problem Noted Date Diagnosed Date Resolved Date Well adult exam 10/03/2016 04/12/2020 Overview: last done: 07/16/19. does not want colonoscopies. Other physical therapy 08/16/201008/30 Sprain of neck 07/30/2010 08/30/2010 Unspecified pruritic disorder 03/02/2009 04/12/2020 Cervicalgia 10/16/2006 10/30/2018 Hyperlipidemia 08/04/2015 documented as of this encounter (statuses as of 07/06/2023) [facility] History of Past illness Narrative* Problem Noted Date Diagnosed Date Resolved Date Well adult exam 10/03/2016 04/12/2020 Overview: last done: 07/16/19. does not want colonoscopies. Other physical therapy 08/16/201008/30 Sprain of neck 07/30/2010 08/30/2010 Unspecified pruritic disorder 03/02/2009 04/12/2020 Cervicalgia 10/16/2006 10/30/2018 Hyperlipidemia 08/04/2015 documented as of this encounter (statuses as of 07/06/2023) [facility] History of Past illness Narrative* Problem Noted Date Diagnosed Date Resolved Date Well adult exam 10/03/2016 04/12/2020 Overview: last done: 07/16/19. does not want colonoscopies. Other physical therapy 08/16/201008/30 Sprain of neck 07/30/2010 08/30/2010 Unspecified pruritic disorder 03/02/2009 04/12/2020 Cervicalgia 10/16/2006 10/30/2018 Hyperlipidemia 08/04/2015 documented as of this encounter (statuses as of 07/06/2023) [facility] History of Past illness Narrative* Problem Noted Date Diagnosed Date Resolved Date Well adult exam 10/03/2016 04/12/2020 Overview: last done: 07/16/19. does not want colonoscopies. Other physical therapy 08/16/201008/30 Sprain of neck 07/30/2010 08/30/2010 Unspecified pruritic disorder 03/02/2009 04/12/2020 Cervicalgia 10/16/2006 10/30/2018 Hyperlipidemia 08/04/2015 documented as of this encounter (statuses as of 10/10/2023) [facility] History of Past illness Narrative* Problem Noted Date Diagnosed Date Resolved Date Well adult exam 10/03/2016 04/12/2020 Overview: last done: 07/16/19. does not want colonoscopies. Other physical therapy 08/16/201008/30 Sprain of neck 07/30/2010 08/30/2010 Unspecified pruritic disorder 03/02/2009 04/12/2020 Cervicalgia 10/16/2006 10/30/2018 Hyperlipidemia 08/04/2015 documented as of this encounter (statuses as of 10/11/2023) [facility] History of Past illness Narrative* Problem Noted Date Diagnosed Date Resolved Date Well adult exam 10/03/2016 04/12/2020 Overview: last done: 07/16/19. does not want colonoscopies. Other physical therapy 08/16/201008/30 Sprain of neck 07/30/2010 08/30/2010 Unspecified pruritic disorder 03/02/2009 04/12/2020 Cervicalgia 10/16/2006 10/30/2018 Hyperlipidemia 08/04/2015 documented as of this encounter (statuses as of 10/14/2023) [facility] Diagnosis Type 2 diabetes mellitus without complication, without long-term current use of insulin (HCC) [facility] this [facility] Diagnosis Syncope, unspecified syncope type- Primary Orthostatic hypotension Facial numbness Disturbance of skin sensation Injury of head, sequela Chronic post-traumatic headache, not intractable Chronic post-traumatic headache [facility] Diagnosis Orthostatic hypotension- Primary [facility] Mixed hyperlipidemia [facility] Diagnosis Injury of head, initial encounter [facility] Diagnosis Injury of head, initial encounter [facility] Diagnosis Chest pain, unspecified type [facility] Diagnosis Situational depression- Primary Adjustment disorder with depressed mood Panic disorder Panic disorder without agoraphobia [facility] Diagnosis Orthostatic hypotension- Primary Occipital neuralgia of right side Neuropathy Mononeuritis of unspecified site Syncope and collapse [facility] Diagnosis Encounter for immunization- Primary Need for other specified prophylactic vaccination against single bacterial disease Type 2 diabetes mellitus with diabetic neuropathy, without long-term current use of insulin (HCC) Essential hypertension, benign Mixed hyperlipidemia Coronary atherosclerosis due to lipid rich plaque GERD without esophagitis Esophageal reflux Carotid stenosis, asymptomatic, bilateral Migraine variant Variants of migraine, not elsewhere classified, without mention of intractable migraine without mention of status migrainosus Adjustment disorder with depressed mood [facility] Diagnosis Hyponatremia- Primary Hyposmolality and/or hyponatremia [facility] Diagnosis Injury of head, initial encounter- Primary LOC (loss of consciousness) ([facility]) Other alteration of consciousness [facility] Diagnosis Type 2 diabetes mellitus without complication, without long-term current use of insulin (HCC) Mixed hyperlipidemia [facility] Diagnosis Abnormal weight loss- Primary Loss of weight Muscle mass Other musculoskeletal symptoms referable to limbs Intractable chronic post-traumatic headache Chronic post-traumatic headache Neuropathy Mononeuritis of unspecified site Situational depression Adjustment disorder with depressed mood Fatigue, unspecified type Myalgia Mylagia and myositis, unspecified [facility] Diagnosis Anemia, unspecified type- Primary Hyperglycemia Other abnormal glucose Uncontrolled type 2 diabetes mellitus with hyperglycemia ([facility]) Blood sugar increased Other abnormal glucose [facility] Diagnosis Iron deficiency anemia, unspecified iron deficiency anemia type- Primary [facility] Diagnosis Anemia, unspecified type [facility] Diagnosis Abnormal weight loss- Primary Loss of weight [facility]* Diagnosis Panic disorder Panic disorder without agoraphobia Situational depression Adjustment disorder with depressed mood Adjustment disorder with depressed mood [facility] Diagnosis Bladder wall thickening- Primary Other specified disorders of bladder Abnormal weight loss Loss of weight [facility]* Diagnosis Type 2 diabetes mellitus with diabetic neuropathy, without long-term current use of insulin (HCC)- Primary [facility]* Diagnosis Bladder wall thickening- Primary Other specified disorders of bladder Benign non-nodular prostatic hyperplasia without lower urinary tract symptoms documented [facility] this [facility]* Diagnosis Dizziness- Primary Dizziness and giddiness Tremor Abnormal involuntary movements Hypotension, unspecified hypotension type Panic disorder Panic disorder without agoraphobia Situational depression Adjustment disorder with depressed mood Atypical chest pain Other chest pain Iron deficiency anemia, unspecified iron deficiency anemia type documented in this encounter [facility] note* Diagnosis Foot injury, left, initial encounter- Primary [facility]* Diagnosis Syncope, unspecified syncope type- Primary Orthostatic hypotension [facility]* Diagnosis Type 2 diabetes mellitus with diabetic neuropathy, without long-term current use of insulin (HCC)- Primary Essential hypertension, benign [facility] Diagnosis Iron deficiency anemia, unspecified iron deficiency anemia type- Primary Anemia, unspecified type documented in this encounter [facility] note* Diagnosis Long-segment Santos's esophagus- Primary Hiatal hernia Diaphragmatic hernia without mention of obstruction or gangrene Diverticulosis Diverticulosis of colon (without mention of hemorrhage) Other gastritis without bleeding documented in this encounter [facility] note* Diagnosis Rhus dermatitis- Primary Contact dermatitis and other eczema due to plants (except food) Syncope, unspecified syncope type- Primary Orthostatic hypotension [facility] Diagnosis Syncope, unspecified syncope type- Primary Orthostatic hypotension [facility] Diagnosis Medicare annual wellness visit, subsequent- [...] esophagitis Esophageal reflux [facility] Diagnosis Elevated PSA- Primary Elevated prostate specific antigen (PSA) Uncontrolled type 2 diabetes mellitus with hyperglycemia (HCC) documented in this encounter [facility] note* Diagnosis Type 2 diabetes mellitus without complication, without long-term current use of insulin (HCC) [facility]* Diagnosis Panic disorder- Primary Panic disorder without agoraphobia Syncope, unspecified syncope type- Primary Orthostatic hypotension [facility] Diagnosis Rash- Primary Rash and other nonspecific skin eruption [facility]* Diagnosis Mouth sores- Primary Other and unspecified diseases of the oral soft tissues documented in this encounter [facility] note* Diagnosis Patient left without being seen- Primary Surgical or other procedure not carried out because of patient's decision SOB (shortness of breath) Shortness of breath documented in this encounter [facility] note* Diagnosis Mouth pain- Primary Other and unspecified diseases of the oral soft tissues [facility] Diagnosis Abnormal weight loss Loss of weight [facility]* Diagnosis Abnormal weight loss Loss of weight documented in this encounter [facility] note* Diagnosis Type 2 diabetes mellitus with diabetic neuropathy, without long-term current use of insulin (HCC) documented in this encounter [facility] for referral (narrative)* Diagnostic Procedure Only (Routine) - Authorized Specialty Diagnoses / Procedures Referred By Chuchoac t Referred To Contact US IMAGING Diagnoses Abnormal weight loss Procedures US ABD RT UPPER QUADRANT US ABDOMINAL REAL TIME W/IMAGE LIMITED Martha Boston PA-C [address] [place] [address] Us Imaging Referral ID Status Reason Start Date Expiration Date Visits Requested Visits Authorized [id number] Authorized Auto-Generat ed Referral 2 07/25/2023 1 1 [facility] for referral (narrative)* Outpatient Procedure (Routine) - Pending Review Specialty Diagnoses / Procedures Referred By Carlos t Referred To Contact [facility] Diagnoses Anemia, unspecified type Procedures COLONOSCOPY DIAGNOSTIC COLONOSCOPY FLX DX W/COLLJ SPEC WHEN PFThai Avalos MD [address] [place] [address] [address] Referral ID Status Reason Start Date Expiration Date Visits Requested Visits Authorized [id number] Pending Review Auto-Generat ed Referral 2 06/27/2023 1 1 * Outpatient Procedure (Routine) - Pending Review Specialty Diagnoses / Procedures Referred By Carlos neff Referred To Contact [facility] Diagnoses Anemia, unspecified type Procedures EGD DIAGNOSTIC ESOPHAGOGASTRODUODENOSC OPY TRANSORAL DIAGNOSTIC Thai Santiago MD [address] [place] [address] [address] Referral ID Status Reason Start Date Expiration Date Visits Requested Visits Authorized [id number] Pending Review Auto-Generat ed Referral 2 06/27/2023 1 1 [facility] for referral (narrative)* Diagnostic Procedure Only (Urgent) - Closed Specialty Diagnoses / Procedures Referred By Carlos neff Referred To Contact XR IMAGING Diagnoses Foot injury, left, initial encounter Procedures XR FOOT GENERAL 3V AP/LAT/OBL LEFT RADEX FOOT COMPLETE MINIMUM 3 VIEWS Miladys Butt, FINANCIAL AGENT [address] [place] [address] Xr Imaging Referral ID Status Reason Start Date Expiration Date V isits Requested Visits Authorized [id number] Closed Auto-Generate d Referral 09/23/2022 10/23/2023 1 1 [facility] for referral (narrative)* Outpatient Procedure (Routine) - Closed Specialty Diagnoses / Procedures Referred By Carlos neff Referred To Contact Diagnoses Anemia, unspecified type Procedures COLONOSCOPY DIAGNOSTIC COLONOSCOPY FLX DX W/COLLJ SPEC WHEN Thai Borges MD [address] [place] [address] Nell Gillis MD [address] [place] [address] Referral ID Status Reason Start Date Expiration Date V isits Requested Visits Authorized [id number] Closed Auto-Generate d Referral 10/14/2022 01/12/2023 1 1 * Outpatient Procedure (Routine) - Closed Specialty Diagnoses / Procedures Referred By Carlos neff Referred To Contact Diagnoses Anemia, unspecified type Procedures EGD DIAGNOSTIC ESOPHAGOGASTRODUODENOSCOPY TRANSORAL DIAGNOSTIC Thai Santiago MD [address] [place] [address] Nell Gillis MD [address] [place] [address] Referral ID Status Reason Start Date Expiration Date V isits Requested Visits Authorized [id number] Closed Auto-Generate d Referral 10/14/2022 01/12/2023 1 1 [facility] for referral (narrative)* Diagnostic Procedure Only (Routine) - Closed Specialty Diagnoses / Procedures Referred By Carlos neff Referred To Contact CT IMAGING Diagnoses Abnormal weight loss Procedures CT ABD/PEL W IVCON CT ABD & PELVIS W/CONTRAST Martha Boston PA-C [address] [place] [address] [place] [address] Referral ID Status Reason Start Date Expiration Date V isits Requested Visits Authorized [id number] Closed Auto-Generate d Referral 07/09/2022 08/08/2022 2 2 * MRI/CT (Routine) - Closed Specialty Diagnoses / Procedures Referred By Carlos t Referred To Contact CT IMAGING Diagnoses Abnormal weight loss Procedures CT CHEST W IVCON DIAGNOSTIC COMPUTED TOMOGRAPHY THORAX W/CONTRAST Martah Boston PA-C [address] [place] [address] [place] [address] Referral ID Status Reason Start Date Expiration Date V isits Requested Visits Authorized [id number] Closed Auto-Generate d Referral 07/09/2022 08/08/2022 1 1 [facility] for referral (narrative)* Diagnostic Procedure Only (Routine) - Closed Specialty Diagnoses / Procedures Referred By Carlos neff Referred To Contact US IMAGING Diagnoses Abnormal weight loss Procedures US ABD RT UPPER QUADRANT US ABDOMINAL REAL TIME W/IMAGE LIMITED Martha Boston PA-C [address] [place] [address] [place] [address] Referral ID Status Reason Start Date Expiration Date V isits Requested Visits Authorized [id number] Closed Auto-Generate d Referral 06/25/2022 07/25/2023 1 1 [facility] for visit Narrative* Outpatient Procedure (Routine) - Closed Specialty Diagnoses / Procedures Referred By Carlos t Referred To Contact Diagnoses Anemia, unspecified type Procedures COLONOSCOPY DIAGNOSTIC COLONOSCOPY FLX DX W/COLLJ SPEC WHEN Thai Borges MD [address] [place] [address] Nell Gillis MD [address] [place] [address] Referral ID Status Reason Start Date Expiration Date V isits Requested Visits Authorized [id number] Closed Auto-Generate d Referral 10/14/2022 01/12/2023 [address] Diagnostic Procedure Only (Routine) - Closed Specialty Diagnoses / Procedures Referred By Contjean pierre t Referred To Contact CT IMAGING Diagnoses Abnormal weight loss Procedures CT ABD/PEL W IVCON CT ABD & PELVIS W/CONTRAST Martha Boston PA-C [address] [facility] [address] [place] [address] Referral ID Status Reason Start Date Expiration Date V isits Requested Visits Authorized [id number] Closed Auto-Generate d Referral 07/09/2022 08/08/2022 [address] 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 Advance Directive(s) Advance Directive(s) 02/20/2018 5:13 PM Advance Directive(s) 02/16/2018 12:54 PM Advance Directive(s) 11/07/2017 1:34 PM Advance Directive(s) 11/07/2017 4:10 PM Advance Directive(s) 11/07/2017 4:03 PM Advance Directive(s) 09/10/2017 6:38 AM Advance Directive(s) 11/20/2015 9:33 AM Documents on File Type Date 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 Advance Directive(s) Advance Directive(s) 02/20/2018 5:13 PM Advance Directive(s) 02/16/2018 12:54 PM Advance Directive(s) 11/07/2017 1:34 PM Advance Directive(s) 11/07/2017 4:10 PM Advance Directive(s) 11/07/2017 4:03 PM Advance Directive(s) 09/10/2017 6:38 AM Advance Directive(s) 11/20/2015 9:33 AM Documents on File Type Date 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 Advance Directive(s) 11/07/2017 4:03 PM Documents on File Type Date Recorded 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 Advance Directive(s) 11/07/2017 4:03 PM Reason for Referral Specialty Diagnoses / Procedures Referred By Carlos neff Referred To Contact Neurology Diagnoses Orthostatic hypotension Procedures CONSULT TO NEUROLOGY OFFICE/OUTPATIENT NEW HIGH MDM 60-74 MINUTES Jenna Jim, LOG CHAIN FEEDER.FINANCIAL AGENT [address] [place] [address] Referral ID Status Reason Start Date Expiration Date Visits Requested Visits Authorized [id number] Pending Review PCP Requested Referral 02/22/2022 02/22/2023 1 1 Specialty Diagnoses / Procedures Referred By Contac t Referred To Contact CT IMAGING Diagnoses Injury of head, initial encounter Procedures CT BRAIN WO IVCON CT HEAD/BRAIN W/O CONTRAST MATERIAL Jenna Jim, LOG CHAIN FEEDER.FINANCIAL AGENT [address] [place] [address] Ct Imaging Referral ID Status Reason Start Date Expiration Date V isits Requested Visits Authorized [id number] Closed Auto-Generate d Referral 03/19/2022 04/18/2023 1 1 Specialty Diagnoses / Procedures Referred By Contac t Referred To Contact General Surgery Diagnoses Anemia, unspecified type Procedures CONSULT TO GENERAL SURGERY OFFICE/OUTPATIENT [facility] 60-74 MINUTES Martha Boston PA-C [address] [place] [address] Referral ID Status Reason Start Date Expiration Date Visits Requested Visits Authorized [id number] Pending Review PCP Requested Referral 06/26/2023 1 1 Specialty Diagnoses / Procedures Referred By Contac t Referred To Contact CT IMAGING Diagnoses Abnormal weight loss Procedures CT ABD/PEL W IVCON CT ABD & PELVIS W/CONTRAST Martha Boston PA-C [address] [place] [address] Ct Imaging Referral ID Status Reason Start Date Expiration Date Visits Requested Visits Authorized [id number] Pending Review Auto-Generat ed Referral 07/02/2022 08/01/2023 1 1 Specialty Diagnoses / Procedures Referred By Contac t Referred To Contact CT IMAGING Diagnoses Abnormal weight loss Procedures CT CHEST W IVCON DIAGNOSTIC COMPUTED TOMOGRAPHY THORAX W/CONTRAST Martha Boston PA-C [address] [place] [address] Ct Imaging Referral ID Status Reason Start Date Expiration Date Visits Requested Visits Authorized [id number] Pending Review Auto-Generat ed Referral 07/02/2022 08/01/2023 1 1 Specialty Diagnoses / Procedures Referred By Carlos neff Referred To Contact Urology Diagnoses Bladder wall thickening Abnormal weight loss Procedures CONSULT TO UROLOGY OFFICE/OUTPATIENT [facility] 60-74 MINUTES Martha Boston PA-C [address] [place] [address] Referral ID Status Reason Start Date Expiration Date Visits Requested Visits Authorized [id number] Pending Review PCP Requested Referral 07/10/2022 07/10/2023 1 1 Specialty Diagnoses / Procedures Referred By Carlos neff Referred To Contact Neurology Diagnoses Type 2 diabetes mellitus with diabetic neuropathy, without long-term current use of insulin (HCC) Procedures CONSULT TO NEUROLOGY Gamal Mathis APRN.CNP [address] [place] [address] Lemuel Troy Jr., MD [address] [place] [address] Referral ID Status Reason Start Date Expiration Date Visits Requested Visits Authorized [id number] Ref Not Required PCP Requested Referral 07/30/2023 1 1 Specialty Diagnoses / Procedures Referred By Carlos neff Referred To Contact Ophthalmology Diagnoses Type 2 diabetes mellitus with diabetic neuropathy, without long-term current use of insulin (HCC) Procedures CONSULT TO OPHTHALMOLOGY OFFICE/OUTPATIENT [facility] 60-74 MINUTES Martha Boston PA-C [address] [place] [id number] Referral ID Status Reason Start Date Expiration Date Visits Requested Visits Authorized [id number] Pending Review PCP Requested Referral 11/28/2022 11/28/2023 1 1 Medications Administered Section Inactive Administered Medications - up to 3 most recent administrations Medication Order MAR Action Action Date Dose Rate Site bupivacaine 0.5 % 47.5 mg injection (MARCAINE MDV) 47.5 mg (9.5 mL), INTRADERMAL, ONCE, 1 dose, On Karina 04/25/22 at 1530 Given 04/25/2022 2:50 PM EDT 47.5 mg Other triamcinolone acetonide 40 mg injection (KeNALog 40) 40 mg, INTRADERMAL, ONCE, 1 dose, On Karina 04/25/22 at 1530 Given 04/25/2022 2:50 PM EDT 40 mg Other Inactive Administered Medications - up to 3 most recent administrations Medication Order MAR Action Action Date Dose Rate Site cephALEXin 500 mg cap(s) (KEFLEX) 500 mg, ORAL, ONCE, 1 dose, On 08/05/22 at 1330, Please document the antimicrobial indication: Empiric Given 08/05/2022 1:00 PM EST 500 mg Oral lidocaine 2 % topical gel (XYLOCAINE) URETHRAL, ONCE, 1 dose, On 08/05/22 at 1330, FOR EXTERNAL USE ONLY APPLY TO: PENIS Given 08/05/2022 1:05 PM EST 11 mL Other Inactive Administered Medications - up to 3 most recent administrations Medication Order MAR Action Action Date Dose Rate Site benzocaine 20% 4 [place]sey[place] (TOPEX) 4 [place], TOPICAL, ONCE, 1 dose, On Fri10/14/22 at [...] DATE CREATED AUTHOR AUTHOR'S ORGANIZ ATION 04/06/2022 [facility] DATE CREATED AUTHOR AUTHOR'S ORGANIZ ATION 08/25/2022 [facility] DATE CREATED AUTHOR AUTHOR'S ORGANIZ ATION 10/20/2022 [facility] DATE CREATED AUTHOR AUTHOR'S ORGANIZ ATION 10/11/2023 [facility] Source Comments (unrecognize d section and content) In the event this informatio n is protected by the Federal Confidentiality of Alcohol and Drug Abuse Patient Records regulations: The Federal rules restrict any use of the information to criminally investigate or prosecute any alcohol or drug abuse patient.[facility] HospitalIn the event this information is protected by the Federal Confidentiality of Alcohol and Drug Abuse Patient Records regulations: The Federal rules restrict any use of the information to criminally investigate or prosecute any alcohol or drug abuse patient.[facility] HospitalIn the event this information is protected by the Federal Confidentiality of Alcohol and Drug Abuse Patient Records regulations: The Federal rules restrict any use of the information to criminally investigate or prosecute any alcohol or drug abuse patient.[facility] HospitalIn the event this information is protected by the Federal Confidentiality of Alcohol and Drug Abuse Patient Records regulations: The Federal rules restrict any use of the information to criminally investigate or prosecute any alcohol or drug abuse patient.[facility] HospitalIn the event this information is protected by the Federal Confidentiality of Alcohol and Drug Abuse Patient Records regulations: The Federal rules restrict any use of the information to criminally investigate or prosecute any alcohol or drug abuse patient.[facility] HospitalIn the event this information is protected by the Federal Confidentiality of Alcohol and Drug Abuse Patient Records regulations: The Federal rules restrict any use of the information to criminally investigate or prosecute any alcohol or drug abuse patient.[facility] HospitalIn the event this information is protected by the Federal Confidentiality of Alcohol and Drug Abuse Patient Records regulations: The Federal rules restrict any use of the information to criminally investigate or prosecute any alcohol or drug abuse patient.[facility] HospitalIn the event this information is protected by the Federal Confidentiality of Alcohol and Drug Abuse Patient Records regulations: The Federal rules restrict any use of the information to criminally investigate or prosecute any alcohol or drug abuse patient.[facility] HospitalIn the event this information is protected by the Federal Confidentiality of Alcohol and Drug Abuse Patient Records regulations: The Federal rules restrict any use of the information to criminally investigate or prosecute any alcohol or drug abuse patient.[facility] HospitalIn the event this information is protected by the Federal Confidentiality of Alcohol and Drug Abuse Patient Records regulations: The Federal rules restrict any use of the information to criminally investigate or prosecute any alcohol or drug abuse patient.[facility] HospitalIn the event this information is protected by the Federal Confidentiality of Alcohol and Drug Abuse Patient Records regulations: The Federal rules restrict any use of the information to criminally investigate or prosecute any alcohol or drug abuse patient.[facility] HospitalIn the event this information is protected by the Federal Confidentiality of Alcohol and Drug Abuse Patient Records regulations: The Federal rules restrict any use of the information to criminally investigate or prosecute any alcohol or drug abuse patient.[facility] HospitalIn the event this information is protected by the Federal Confidentiality of Alcohol and Drug Abuse Patient Records regulations: The Federal rules restrict any use of the information to criminally investigate or prosecute any alcohol or drug abuse patient.[facility] HospitalIn the event this information is protected by the Federal Confidentiality of Alcohol and Drug Abuse Patient Records regulations: The Federal rules restrict any use of the information to criminally investigate or prosecute any alcohol or drug abuse patient.[facility] HospitalIn the event this information is protected by the Federal Confidentiality of Alcohol and Drug Abuse Patient Records regulations: The Federal rules restrict any use of the information to criminally investigate or prosecute any alcohol or drug abuse patient.[facility] HospitalIn the event this information is protected by the Federal Confidentiality of Alcohol and Drug Abuse Patient Records regulations: The Federal rules restrict any use of the information to criminally investigate or prosecute any alcohol or drug abuse patient.[facility] HospitalIn the event this information is protected by the Federal Confidentiality of Alcohol and Drug Abuse Patient Records regulations: The Federal rules restrict any use of the information to criminally investigate or prosecute any alcohol or drug abuse patient.[facility] HospitalIn the event this information is protected by the Federal Confidentiality of Alcohol and Drug Abuse Patient Records regulations: The Federal rules restrict any use of the information to criminally investigate or prosecute any alcohol or drug abuse patient.[facility] HospitalIn the event this information is protected by the Federal Confidentiality of Alcohol and Drug Abuse Patient Records regulations: The Federal rules restrict any use of the information to criminally investigate or prosecute any alcohol or drug abuse patient.[facility] HospitalIn the event this information is protected by the Federal Confidentiality of Alcohol and Drug Abuse Patient Records regulations: The Federal rules restrict any use of the information to criminally investigate or prosecute any alcohol or drug abuse patient.[facility] HospitalIn the event this information is protected by the Federal Confidentiality of Alcohol and Drug Abuse Patient Records regulations: The Federal rules restrict any use of the information to criminally investigate or prosecute any alcohol or drug abuse patient.[facility] HospitalIn the event this information is protected by the Federal Confidentiality of Alcohol and Drug Abuse Patient Records regulations: The Federal rules restrict any use of the information to criminally investigate or prosecute any alcohol or drug abuse patient.[facility] HospitalIn the event this information is protected by the Federal Confidentiality of Alcohol and Drug Abuse Patient Records regulations: The Federal rules restrict any use of the information to criminally investigate or prosecute any alcohol or drug abuse patient.[facility] HospitalIn the event this information is protected by the Federal Confidentiality of Alcohol and Drug Abuse Patient Records regulations: The Federal rules restrict any use of the information to criminally investigate or prosecute any alcohol or drug abuse patient.[facility] HospitalIn the event this information is protected by the Federal Confidentiality of Alcohol and Drug Abuse Patient Records regulations: The Federal rules restrict any use of the information to criminally investigate or prosecute any alcohol or drug abuse patient.[facility] HospitalIn the event this information is protected by the Federal Confidentiality of Alcohol and Drug Abuse Patient Records regulations: The Federal rules restrict any use of the information to criminally investigate or prosecute any alcohol or drug abuse patient.[facility] HospitalIn the event this information is protected by the Federal Confidentiality of Alcohol and Drug Abuse Patient Records regulations: The Federal rules restrict any use of the information to criminally investigate or prosecute any alcohol or drug abuse patient.[facility] HospitalIn the event this information is protected by the Federal Confidentiality of Alcohol and Drug Abuse Patient Records regulations: The Federal rules restrict any use of the information to criminally investigate or prosecute any alcohol or drug abuse patient.[facility] HospitalIn the event this information is protected by the Federal Confidentiality of Alcohol and Drug Abuse Patient Records regulations: The Federal rules restrict any use of the information to criminally investigate or prosecute any alcohol or drug abuse patient.[facility] HospitalIn the event this information is protected by the Federal Confidentiality of Alcohol and Drug Abuse Patient Records regulations: The Federal rules restrict any use of the information to criminally investigate or prosecute any alcohol or drug abuse patient.[facility] HospitalIn the event this information is protected by the Federal Confidentiality of Alcohol and Drug Abuse Patient Records regulations: The Federal rules restrict any use of the information to criminally investigate or prosecute any alcohol or drug abuse patient.[facility] HospitalIn the event this information is protected by the Federal Confidentiality of Alcohol and Drug Abuse Patient Records regulations: The Federal rules restrict any use of the information to criminally investigate or prosecute any alcohol or drug abuse patient.[facility] HospitalIn the event this information is protected by the Federal Confidentiality of Alcohol and Drug Abuse Patient Records regulations: The Federal rules restrict any use of the information to criminally investigate or prosecute any alcohol or drug abuse patient.[facility] HospitalIn the event this information is protected by the Federal Confidentiality of Alcohol and Drug Abuse Patient Records regulations: The Federal rules restrict any use of the information to criminally investigate or prosecute any alcohol or drug abuse patient.[facility] HospitalIn the event this information is protected by the Federal Confidentiality of Alcohol and Drug Abuse Patient Records regulations: The Federal rules restrict any use of the information to criminally investigate or prosecute any alcohol or drug abuse patient.[facility] HospitalIn the event this information is protected by the Federal Confidentiality of Alcohol and Drug Abuse Patient Records regulations: The Federal rules restrict any use of the information to criminally investigate or prosecute any alcohol or drug abuse patient.[facility] HospitalIn the event this information is protected by the Federal Confidentiality of Alcohol and Drug Abuse Patient Records regulations: The Federal rules restrict any use of the information to criminally investigate or prosecute any alcohol or drug abuse patient.[facility] HospitalIn the event this information is protected by the Federal Confidentiality of Alcohol and Drug Abuse Patient Records regulations: The Federal rules restrict any use of the information to criminally investigate or prosecute any alcohol or drug abuse patient.[facility] HospitalIn the event this information is protected by the Federal Confidentiality of Alcohol and Drug Abuse Patient Records regulations: The Federal rules restrict any use of the information to criminally investigate or prosecute any alcohol or drug abuse patient.[facility] HospitalIn the event this information is protected by the Federal Confidentiality of Alcohol and Drug Abuse Patient Records regulations: The Federal rules restrict any use of the information to criminally investigate or prosecute any alcohol or drug abuse patient.[facility] HospitalIn the event this information is protected by the Federal Confidentiality of Alcohol and Drug Abuse Patient Records regulations: The Federal rules restrict any use of the information to criminally investigate or prosecute any alcohol or drug abuse patient.[facility] HospitalIn the event this information is protected by the Federal Confidentiality of Alcohol and Drug Abuse Patient Records regulations: The Federal rules restrict any use of the information to criminally investigate or prosecute any alcohol or drug abuse patient.[facility] HospitalIn the event this information is protected by the Federal Confidentiality of Alcohol and Drug Abuse Patient Records regulations: The Federal rules restrict any use of the information to criminally investigate or prosecute any alcohol or drug abuse patient.[facility] HospitalIn the event this information is protected by the Federal Confidentiality of Alcohol and Drug Abuse Patient Records regulations: The Federal rules restrict any use of the information to criminally investigate or prosecute any alcohol or drug abuse patient.[facility] HospitalIn the event this information is protected by the Federal Confidentiality of Alcohol and Drug Abuse Patient Records regulations: The Federal rules restrict any use of the information to criminally investigate or prosecute any alcohol or drug abuse patient.[facility] HospitalIn the event this information is protected by the Federal Confidentiality of Alcohol and Drug Abuse Patient Records regulations: The Federal rules restrict any use of the information to criminally investigate or prosecute any alcohol or drug abuse patient.[facility] HospitalIn the event this information is protected by the Federal Confidentiality of Alcohol and Drug Abuse Patient Records regulations: The Federal rules restrict any use of the information to criminally investigate or prosecute any alcohol or drug abuse patient.[facility] HospitalIn the event this information is protected by the Federal Confidentiality of Alcohol and Drug Abuse Patient Records regulations: The Federal rules restrict any use of the information to criminally investigate or prosecute any alcohol or drug abuse patient.[facility] HospitalIn the event this information is protected by the Federal Confidentiality of Alcohol and Drug Abuse Patient Records regulations: The Federal rules restrict any use of the information to criminally investigate or prosecute any alcohol or drug abuse patient.[facility] HospitalIn the event this information is protected by the Federal Confidentiality of Alcohol and Drug Abuse Patient Records regulations: The Federal rules restrict any use of the information to criminally investigate or prosecute any alcohol or drug abuse patient.[facility] HospitalIn the event this information is protected by the Federal Confidentiality of Alcohol and Drug Abuse Patient Records regulations: The Federal rules restrict any use of the information to criminally investigate or prosecute any alcohol or drug abuse patient.[facility] HospitalIn the event this information is protected by the Federal Confidentiality of Alcohol and Drug Abuse Patient Records regulations: The Federal rules restrict any use of the information to criminally investigate or prosecute any alcohol or drug abuse patient.[facility] HospitalIn the event this information is protected by the Federal Confidentiality of Alcohol and Drug Abuse Patient Records regulations: The Federal rules restrict any use of the information to criminally investigate or prosecute any alcohol or drug abuse patient.[facility] HospitalIn the event this information is protected by the Federal Confidentiality of Alcohol and Drug Abuse Patient Records regulations: The Federal rules restrict any use of the information to criminally investigate or prosecute any alcohol or drug abuse patient.[facility] HospitalIn the event this information is protected by the Federal Confidentiality of Alcohol and Drug Abuse Patient Records regulations: The Federal rules restrict any use of the information to criminally investigate or prosecute any alcohol or drug abuse patient.[facility] HospitalIn the event this information is protected by the Federal Confidentiality of Alcohol and Drug Abuse Patient Records regulations: The Federal rules restrict any use of the information to criminally investigate or prosecute any alcohol or drug abuse patient.[facility] HospitalIn the event this information is protected by the Federal Confidentiality of Alcohol and Drug Abuse Patient Records regulations: The Federal rules restrict any use of the information to criminally investigate or prosecute any alcohol or drug abuse patient.[facility] HospitalIn the event this information is protected by the Federal Confidentiality of Alcohol and Drug Abuse Patient Records regulations: The Federal rules restrict any use of the information to criminally investigate or prosecute any alcohol or drug abuse patient.[facility] HospitalIn the event this information is protected by the Federal Confidentiality of Alcohol and Drug Abuse Patient Records regulations: The Federal rules restrict any use of the information to criminally investigate or prosecute any alcohol or drug abuse patient.[facility] HospitalIn the event this information is protected by the Federal Confidentiality of Alcohol and Drug Abuse Patient Records regulations: The Federal rules restrict any use of the information to criminally investigate or prosecute any alcohol or drug abuse patient.[facility] HospitalIn the event this information is protected by the Federal Confidentiality of Alcohol and Drug Abuse Patient Records regulations: The Federal rules restrict any use of the information to criminally investigate or prosecute any alcohol or drug abuse patient.[facility] HospitalIn the event this information is protected by the Federal Confidentiality of Alcohol and Drug Abuse Patient Records regulations: The Federal rules restrict any use of the information to criminally investigate or prosecute any alcohol or drug abuse patient.[facility] HospitalIn the event this information is protected by the Federal Confidentiality of Alcohol and Drug Abuse Patient Records regulations: The Federal rules restrict any use of the information to criminally investigate or prosecute any alcohol or drug abuse patient.[facility] HospitalIn the event this information is protected by the Federal Confidentiality of Alcohol and Drug Abuse Patient Records regulations: The Federal rules restrict any use of the information to criminally investigate or prosecute any alcohol or drug abuse patient.[facility] HospitalIn the event this information is protected by the Federal Confidentiality of Alcohol and Drug Abuse Patient Records regulations: The Federal rules restrict any use of the information to criminally investigate or prosecute any alcohol or drug abuse patient.[facility] HospitalIn the event this information is protected by the Federal Confidentiality of Alcohol and Drug Abuse Patient Records regulations: The Federal rules restrict any use of the information to criminally investigate or prosecute any alcohol or drug abuse patient.[facility] HospitalIn the event this information is protected by the Federal Confidentiality of Alcohol and Drug Abuse Patient Records regulations: The Federal rules restrict any use of the information to criminally investigate or prosecute any alcohol or drug abuse patient.[facility] HospitalIn the event this information is protected by the Federal Confidentiality of Alcohol and Drug Abuse Patient Records regulations: The Federal rules restrict any use of the information to criminally investigate or prosecute any alcohol or drug abuse patient.[facility] HospitalIn the event this information is protected by the Federal Confidentiality of Alcohol and Drug Abuse Patient Records regulations: The Federal rules restrict any use of the information to criminally investigate or prosecute any alcohol or drug abuse patient.[facility] HospitalIn the event this information is protected by the Federal Confidentiality of Alcohol and Drug Abuse Patient Records regulations: The Federal rules restrict any use of the information to criminally investigate or prosecute any alcohol or drug abuse patient.[facility] HospitalIn the event this information is protected by the Federal Confidentiality of Alcohol and Drug Abuse Patient Records regulations: The Federal rules restrict any use of the information to criminally investigate or prosecute any alcohol or drug abuse patient.[facility] HospitalIn the event this information is protected by the Federal Confidentiality of Alcohol and Drug Abuse Patient Records regulations: The Federal rules restrict any use of the information to criminally investigate or prosecute any alcohol or drug abuse patient.[facility] HospitalIn the event this information is protected by the Federal Confidentiality of Alcohol and Drug Abuse Patient Records regulations: The Federal rules restrict any use of the information to criminally investigate or prosecute any alcohol or drug abuse patient.[facility] HospitalIn the event this information is protected by the Federal Confidentiality of Alcohol and Drug Abuse Patient Records regulations: The Federal rules restrict any use of the information to criminally investigate or prosecute any alcohol or drug abuse patient.[facility] HospitalIn the event this information is protected by the Federal Confidentiality of Alcohol and Drug Abuse Patient Records regulations: The Federal rules restrict any use of the information to criminally investigate or prosecute any alcohol or drug abuse patient.[facility] HospitalIn the event this information is protected by the Federal Confidentiality of Alcohol and Drug Abuse Patient Records regulations: The Federal rules restrict any use of the information to criminally investigate or prosecute any alcohol or drug abuse patient.[facility] HospitalIn the event this information is protected by the Federal Confidentiality of Alcohol and Drug Abuse Patient Records regulations: The Federal rules restrict any use of the information to criminally investigate or prosecute any alcohol or drug abuse patient.[facility] HospitalIn the event this information is protected by the Federal Confidentiality of Alcohol and Drug Abuse Patient Records regulations: The Federal rules restrict any use of the information to criminally investigate or prosecute any alcohol or drug abuse patient.[facility] HospitalIn the event this information is protected by the Federal Confidentiality of Alcohol and Drug Abuse Patient Records regulations: The Federal rules restrict any use of the information to criminally investigate or prosecute any alcohol or drug abuse patient.[facility] HospitalIn the event this information is protected by the Federal Confidentiality of Alcohol and Drug Abuse Patient Records regulations: The Federal rules restrict any use of the information to criminally investigate or prosecute any alcohol or drug abuse patient.[facility] HospitalIn the event this information is protected by the Federal Confidentiality of Alcohol and Drug Abuse Patient Records regulations: The Federal rules restrict any use of the information to criminally investigate or prosecute any alcohol or drug abuse patient.[facility] HospitalIn the event this information is protected by the Federal Confidentiality of Alcohol and Drug Abuse Patient Records regulations: The Federal rules restrict any use of the information to criminally investigate or prosecute any alcohol or drug abuse patient.[facility] HospitalIn the event this information is protected by the Federal Confidentiality of Alcohol and Drug Abuse Patient Records regulations: The Federal rules restrict any use of the information to criminally investigate or prosecute any alcohol or drug abuse patient.[facility] HospitalIn the event this information is protected by the Federal Confidentiality of Alcohol and Drug Abuse Patient Records regulations: The Federal rules restrict any use of the information to criminally investigate or prosecute any alcohol or drug abuse patient.[facility] HospitalIn the event this information is protected by the Federal Confidentiality of Alcohol and Drug Abuse Patient Records regulations: The Federal rules restrict any use of the information to criminally investigate or prosecute any alcohol or drug abuse patient.[facility] Reason for Visit (unrecogniz ed section [...] CT HEAD/BRAIN W/O CONTRAST MATERIAL Jenna Jim, COLLETTE.FINANCIAL AGENT [address] [place] [address] Ct Imaging Referral ID Status Reason Start Date Expiration Date V isits Requested Visits Authorized [id number] Closed Auto-Generat ed Referral Patient Cleared - [...] Is also having head pain Reason Comments [facility] Reason Comments Results Reason Comments Consult Colonoscopy, anemia, no prior colonoscopy Specialty Diagnoses / Procedures Referred By Carlos t Referred To Contact General Surgery Diagnoses Anemia, unspecified type Procedures CONSULT TO GENERAL SURGERY OFFICE/OUTPATIENT NEW HIGH MDM 60-74 MINUTES Martha Boston PA-C [address] [place] [address] Referral ID Status Reason Start Date Expiration Date Visits Requested Visits Authorized [id number] Pending Review PCP Requested Referral 2 06/26/2023 [...] Hypotension Specialty Diagnoses / Procedures Referred By Contjean pierre t Referred To Contact Neurology Diagnoses Orthostatic hypotension Procedures CONSULT TO NEUROLOGY OFFICE/OUTPATIENT NEW HIGH MDM 60-74 MINUTES Jenna Jim, LOG CHAIN FEEDER.FINANCIAL AGENT [address] [place] [id number] Referral ID Status Reason Start Date Expiration Date Visits Requested Visits Authorized [id number] Pending Review PCP Requested Referral 02/22/2022 02/22/2023 [...] CT Specialty Diagnoses / Procedures Referred By Contjean pierre t Referred To Contact CT IMAGING Diagnoses Abnormal weight loss Procedures CT ABD/PEL W IVCON CT ABD & PELVIS W/CONTRAST Martha Boston PA-C [address] [place] [address] [place] [address] Referral ID Status Reason Start Date Expiration Date V isits Requested Visits Authorized [id number] Closed Auto-Generate d Referral 07/09/2022 08/08/2022 2 2 Reason Comments Radiology US Specialty Diagnoses / Procedures Referred By Carlos neff Referred To Contact US IMAGING Diagnoses Abnormal weight loss Procedures US ABD RT UPPER QUADRANT US ABDOMINAL REAL TIME W/IMAGE LIMITED Martha Boston PA-C [address] [place] [address] [place] [address] Referral ID Status Reason Start Date Expiration Date V isits Requested Visits Authorized [id number] Closed Auto-Generate d Referral 06/25/2022 07/25/2023 1 1 Reason Comments ER Discharge Summary X-ray, H&P Reason Comments Outside Cardiology Cardiac Cath, Echo Care Teams (unrecognized sec tion and content) Bench Technician Relationship Specialty Start Date End Date Nadir Grady MD [address] [place] [address] PCP - General Family Practice 08/04/15 [facility] [address] [place] [address] Pharmacist Pharmacy 10/20/20 Karen [facility] [address] [place] [address] Pharmacist Pharmacy 03/15/21 Bench Technician Relationship Specialty Start Date End Date Nadir Grady MD [address] [place] [address] PCP - General Family Practice 08/04/15 [facility] [address] [place] [address] Pharmacist Pharmacy 10/20/20 [facility] [address] [place] [address] Pharmacist Pharmacy 03/15/21 Bench Technician Relationship Specialty Start Date End Date Nadir Grady MD [address] [facility] [place] [address] PCP - General Family Practice 08/04/15 Sharri Briankati[facility] [address] [facility] [place] [address] Pharmacist Pharmacy 10/20/20 StrongstownKaren florSS[facility] [address] [facility] [place] [address] Pharmacist Pharmacy 03/15/21 Bench Technician Relationship Specialty Start Date End Date Nadir Grady MD [address] [facility] [place] [address] PCP - General Family Practice 08/04/15 [facility]ri [facility] [address] [facility] [place] [address] Pharmacist Pharmacy 10/20/20 [facility] [address] [facility] [place] [address] Pharmacist Pharmacy 03/15/21 Bench Technician Relationship Specialty Start Date End Date Nadir Grady MD [address] [facility] [place] [address] PCP - General Family Practice 08/04/15 [facility] Briankati[facility] [address] [facility] [place] [address] Pharmacist Pharmacy 10/20/20 [place] KarenSS[facility] [address] [facility] [place] [address] Pharmacist Pharmacy 03/15/21 Yolanda Dean (Camelia) [address] [place] [address] Referring Pulmonary and Critical Care Medicine 02/07/22 Bench Technician Relationship Specialty Start Date End Date Nadir Grady MD [address] [facility] [place] [address] PCP - General Family Practice 08/04/15 [facility] [address] [facility] [place] [address] Pharmacist Pharmacy 10/20/20 [place] KarenSS[facility] [address] [facility] [place] [address] Pharmacist Pharmacy 03/15/21 Yolanda Dean (Pa) [address] [place] [address] Referring Pulmonary and Critical Care Medicine 02/07/22 Bench Technician Relationship Specialty Start Date End Date Nadir Grady MD [address] [facility] [place] [address] PCP - General Family Practice 08/04/15 [facility] [address] [facility] [place] [address] Pharmacist Pharmacy 10/20/20 [facility] [address] [facility] [place] [address] Pharmacist Pharmacy 03/15/21 Yolanda Dean (Pa) [address] [place] [address] Referring Pulmonary and Critical Care Medicine 02/07/22 Bench Technician Relationship Specialty Start Date End Date Nadir Grady MD [address] [facility] [place] [address] PCP - General Family Practice 08/04/15 [facility] [address] [facility] [place] [address] Pharmacist Pharmacy 10/20/20 FelizKaren florSS[facility] [address] [facility] [place] [address] Pharmacist Pharmacy 03/15/21 Yolanda Dean (Pa) [address] [facility] [place] [address] Referring Pulmonary and Critical Care Medicine 02/07/22 Bench Technician Relationship Specialty Start Date End Date Nadir Grady MD [address] [facility] [place] [address] PCP - General Family Practice 08/04/15 Sharri [facility] [address] [facility] [place] [address] Pharmacist Pharmacy 10/20/20 Karen [facility] [address] [facility] [place] [address] Pharmacist Pharmacy 03/15/21 Yolanda Dean (Pa) [address] [facility] [place] [address] Referring Pulmonary and Critical Care Medicine 02/07/22 Bench Technician Relationship Specialty Start Date End Date Nadir Grady MD [address] [facility] [place] [address] PCP - General Family Practice 08/04/15 Sharri [facility] [address] [facility] [place] [address] Pharmacist Pharmacy 10/20/20 Karen [facility] [address] [facility] [place] [address] Pharmacist Pharmacy 03/15/21 Yolanda Dean (Pa) [address] [facility] [address] Referring Pulmonary and Critical Care Medicine 02/07/22 Bench Technician Relationship Specialty Start Date End Date Nadir Grady MD [address] [facility] [place] [address] PCP - General Family Practice 08/04/15 ToddArnaud vegaSS[facility] [address] [facility] [place] [address] Pharmacist Pharmacy 10/20/20 [facility]KarenSS[facility] [address] [facility] [place] [address] Pharmacist Pharmacy 03/15/21 Yolanda Dean (Pa) [address] [facility] [place] [address] Referring Pulmonary and Critical Care Medicine 02/07/22 Bench Technician Relationship Specialty Start Date End Date Nadir Grady MD [address] [facility] [place] [address] PCP - General Family Practice 08/04/15 [facility] [address] [facility] [place] [address] Pharmacist Pharmacy 10/20/20 Karen [facility] [address] [facility] [place] [address] Pharmacist Pharmacy 03/15/21 Yolanda Dean (Pa) [address] [facility] [place] [address] Referring Pulmonary and Critical Care Medicine 02/07/22 Bench Technician Relationship Specialty Start Date End Date Nadir Grady MD [address] [facility] [place] [address] PCP - General Family Practice 08/04/15 ToddArnaud vegaSS[facility] [address] [facility] [place] [address] Pharmacist Pharmacy 10/20/20 Karen [facility] [address] [facility] [place] [address] Pharmacist Pharmacy 03/15/21 Yolanda Dean (Pa) [address] Moodyjohn paul [facility] [place] [address] Referring Pulmonary and Critical Care Medicine 02/07/22 Bench Technician Relationship Specialty Start Date End Date Nadir Grady MD [address] [facility] [place] [address] PCP - General Family Practice 08/04/15 ToddArnaud vega[facility] [address] [facility] [place] [address] Pharmacist Pharmacy 10/20/20 Karen [facility] [address] [facility] [place] [address] Pharmacist Pharmacy 03/15/21 Yolanda Dean (Pa) [address] [place] [address] Referring Pulmonary and Critical Care Medicine 02/07/22 Bench Technician Relationship Specialty Start Date End Date Nadir Grady MD [address] [facility] [place] [address] PCP - General Family Practice 08/04/15 ToddArnaud vega[facility] [address] [facility] [place] [address] Pharmacist Pharmacy 10/20/20 Feliz KarenSS[facility] [address] [facility] [place] [address] Pharmacist Pharmacy 03/15/21 Yolanda Dean (Pa) [address] [facility] [place] [address] Referring Pulmonary and Critical Care Medicine 02/07/22 Bench Technician Relationship Specialty Start Date End Date Nadir Grady MD [address] [facility] [place] [address] PCP - General Family Practice 08/04/15 [facility]ud [facility] [address] [facility] [place] [address] Pharmacist Pharmacy 10/20/20 Karen [facility] [address] [facility] [place] [address] Pharmacist Pharmacy 03/15/21 Yolanda Dean (Pa) [address] [facility] [place] [address] Referring Pulmonary and Critical Care Medicine 02/07/22 Bench Technician Relationship Specialty Start Date End Date Nadir Grady MD [address] [facility] [place] [address] PCP - General Family Practice 08/04/15 Arnaud Harrell, [facility] [address] [facility] [place] [address] Pharmacist Pharmacy 10/20/20 Karen [facility] [address] [facility] [place] [address] Pharmacist Pharmacy 03/15/21 Yolanda Dean (Pa) [address] [facility] [place] [address] Referring Pulmonary and Critical Care Medicine 02/07/22 Bench Technician Relationship Specialty Start Date End Date Nadir Grady MD [address] [facility] [place] [address] PCP - General Family Practice 08/04/15 [facility] [address] [facility] [place] [address] Pharmacist Pharmacy 10/20/20 [place]Karen florSS[facility] [address] [facility] [place] [address] Pharmacist Pharmacy 03/15/21 Yolanda Dean (Pa) [address] [facility] [address] Referring Pulmonary and Critical Care Medicine 02/07/22 Bench Technician Relationship Specialty Start Date End Date Nadir Grady MD [address] [facility] [place] [address] PCP - General Family Practice 08/04/15 [facility] [address] [facility] [place] [address] Pharmacist Pharmacy 10/20/20 FelizKaren florSS[facility] [address] [facility] [place] [address] Pharmacist Pharmacy 03/15/21 Yolanda Dean (Pa) [address] paul [facility] [place] [address] Referring Pulmonary and Critical Care Medicine 02/07/22 Bench Technician Relationship Specialty Start Date End Date Nadir Grady MD [address] [facility] [place] [address] PCP - General Family Medicine 08/04/15 ToddArnaud vegaSS[facility] [address] [facility] [place] [address] Pharmacist Pharmacy 10/20/20 [facility]KarenSS[facility] [address] [facility] [address] Pharmacist Pharmacy 03/15/21 Yolanda Dean (Pa) [address] [facility] [place] [address] Referring Pulmonary and Critical Care Medicine 02/07/22 Bench Technician Relationship Specialty Start Date End Date Nadir Grady MD [address] [facility] [place] [address] PCP - General Family Medicine 08/04/15 [facility] [address] [facility] [place] [address] Pharmacist Pharmacy 10/20/20 [facility]izKarenSS[facility] [address] [facility] [place] [address] Pharmacist Pharmacy 03/15/21 Yolanda Dean (Pa) [address] [facility] [place] [address] Referring Pulmonary and Critical Care Medicine 02/07/22 Bench Technician Relationship Specialty Start Date End Date Nadir Grady MD [address] [facility] [place] [address] PCP - General Family Medicine 08/04/15 [facility] [address] [facility] [place] [address] Pharmacist Pharmacy 10/20/20 [facility]KarenSS[facility] [address] [facility] [place] [address] Pharmacist Pharmacy 03/15/21 Yolanda Dean (Pa) [address] [facility] [place] [address] Referring Pulmonary and Critical Care Medicine 02/07/22 Bench Technician Relationship Specialty Start Date End Date Nadir Grady MD [address] [facility] [place] [address] PCP - General Family Medicine 08/04/15 [facility] [address] [facility] [place] [address] Pharmacist Pharmacy 10/20/20 [place] KarenSS[facility] [address] [facility] [place] [address] Pharmacist Pharmacy 03/15/21 Yolanda Dean (Pa) [address] [place] [address] Referring Pulmonary and Critical Care Medicine 02/07/22 Bench Technician Relationship Specialty Start Date End Date Nadir Grady MD [address] [facility] [place] [address] PCP - General Family Medicine 08/04/15 [facility] [address] [facility] [place] [address] Pharmacist Pharmacy 10/20/20 Karen Piper[facility] [address] [facility] [place] [address] Pharmacist Pharmacy 03/15/21 Yolanda Dean (Pa) [address] [facility] [place] [address] Referring Pulmonary and Critical Care Medicine 02/07/22 Bench Technician Relationship Specialty Start Date End Date Nadir Grady MD [address] [facility] [place] [address] PCP - General Family Medicine 08/04/15 ToddArnaud vegaSS[facility] [address] [facility] [place] [address] Pharmacist Pharmacy 10/20/20 Karen [facility] [address] [facility] [place] [address] Pharmacist Pharmacy 03/15/21 Yolanda Dean (Pa) [address] paul [facility] [place] [address] Referring Pulmonary and Critical Care Medicine 02/07/22 Bench Technician Relationship Specialty Start Date End Date Nadir Grady MD [address] [facility] [place] [address] PCP - General Family Medicine 08/04/15 ToddArnaud vegaSS[facility] [address] [facility] [place] [address] Pharmacist Pharmacy 10/20/20 Karen [facility] [address] [facility] [place] [place] [address] Pharmacist Pharmacy 03/15/21 Yolanda Dean (Pa) [address] [facility] [place] [address] Referring Pulmonary and Critical Care Medicine 02/07/22 Bench Technician Relationship Specialty Start Date End Date Nadir Grady MD [address] [facility] [place] [address] PCP - General Family Medicine 08/04/15 Arnaud Harrell, Formerly [facility] [address] [facility] [place] [address] Pharmacist Pharmacy 10/20/20 Feliz, [facility] [address] [facility] [place] [address] Pharmacist Pharmacy 03/15/21 Yolanda Dean (Pa) [address] [facility] [place] [address] Referring Pulmonary and Critical Care Medicine 02/07/22 Bench Technician Relationship Specialty Start Date End Date Nadir Grady MD [address] [facility] [place] [address] PCP - General Family Medicine 08/04/15 [facility] [address] [facility] [place] [address] Pharmacist Pharmacy 10/20/20 Karen [facility] [address] [facility] [place] [address] Pharmacist Pharmacy 03/15/21 Yolanda Dean (Pa) [address] [facility] [place] [address] Referring Pulmonary and Critical Care Medicine 02/07/22 Bench Technician Relationship Specialty Start Date End Date Nadir Grady MD [address] [facility] [place] [address] PCP - General Family Medicine 08/04/15 [facility] [address] [facility] [place] [address] Pharmacist Pharmacy 10/20/20 Karen [facility] [address] [facility] [place] [address] Pharmacist Pharmacy 03/15/21 Yolanda Dean (Pa) [address] [facility] [place] [address] Referring Pulmonary and Critical Care Medicine 02/07/22 Bench Technician Relationship Specialty Start Date End Date Nadir Grady MD [address] [facility] [place] [address] PCP - General Family Medicine 08/04/15 ToddArnaud vegaSS[facility] [address] [facility] [place] [address] Pharmacist Pharmacy 10/20/20 StrongstownKaren florSS[facility] [address] [facility] [place] [address] Pharmacist Pharmacy 03/15/21 Yolanda Dean (Pa) [address] [facility] [place] [address] Referring Pulmonary and Critical Care Medicine 02/07/22 Bench Technician Relationship Specialty Start Date End Date Nadir Grady MD [address] [facility] [place] [address] PCP - General Family Medicine 08/04/15 Toddsilvia BriankatiSS[facility] [address] [facility] [place] [address] Pharmacist Pharmacy 10/20/20 Karen [facility] [address] [facility] [place] [address] Pharmacist Pharmacy 03/15/21 Yolanda Dean (Pa) [address] [facility] [place] [address] Referring Pulmonary and Critical Care Medicine 02/07/22 Bench Technician Relationship Specialty Start Date End Date Nadir Grady MD [address] [facility] [place] [address] PCP - General Family Medicine 08/04/15 [facility] [address] [facility] [place] [address] Pharmacist Pharmacy 10/20/20 [facility] [address] [facility] [place] [address] Pharmacist Pharmacy 03/15/21 Yolanda Dean (Pa) [address] [facility] [address] Referring Pulmonary and Critical Care Medicine 02/07/22 Bench Technician Relationship Specialty Start Date End Date Nadir Grady MD [address] [facility] [place] [address] PCP - General Family Medicine 08/04/15 [facility]ud [facility] [address] [facility] [place] [address] Pharmacist Pharmacy 10/20/20 Karen [facility] [address] [facility] [place] [address] Pharmacist Pharmacy 03/15/21 Yolanda Dean (Pa) [address] [facility] [place] [address] Referring Pulmonary and Critical Care Medicine 02/07/22 Bench Technician Relationship Specialty Start Date End Date Nadir Grady MD [address] [facility] [place] [address] PCP - General Family Medicine 08/04/15 Arnaud Harrell, Formerly [facility] [address] [facility] [place] [address] Pharmacist Pharmacy 10/20/20 Feliz Karen, Former[facility] [address] [facility] [place] [address] Pharmacist Pharmacy 03/15/21 Yolanda Dean (Pa) [address] Saim[address] Castro [facility] [place] [address] Referring Pulmonary and Critical Care Medicine 02/07/22 Bench Technician Relationship Specialty Start Date End Date Nadir Grady MD [address] [facility] [place] [address] PCP - General Family Medicine 08/04/15 SharriArnaud[facility] [address] [facility] [place] [address] Pharmacist Pharmacy 10/20/20 Feliz, [facility] [address] [facility] [place] [address] Pharmacist Pharmacy 03/15/21 Yolanda Dean (Pa) [address] [place] [address] Referring Pulmonary and Critical Care Medicine 02/07/22 Bench Technician Relationship Specialty Start Date End Date Nadir Grady MD [address] [facility] [place] [address] PCP - General Family Medicine 08/04/15 Arnaud Harrell, [facility] [address] [facility] [place] [address] Pharmacist Pharmacy 10/20/20 Feliz Karen[facility] [address] [facility] [place] [address] Pharmacist Pharmacy 03/15/21 Yolanda Dean (Pa) [address] [facility] [place] [address] Referring Pulmonary and Critical Care Medicine 02/07/22 Bench Technician Relationship Specialty Start Date End Date Nadir Grady MD [address] [facility] [place] [address] PCP - General Family Medicine 08/04/15 [facility] [address] [facility] [place] [address] Pharmacist Pharmacy 10/20/20 [place], [facility] [address] [facility] [place] [address] Pharmacist Pharmacy 03/15/21 Yolanda Dean (Pa) [address] Leandro [facility] [place] [address] Referring Pulmonary and Critical Care Medicine 02/07/22 Bench Technician Relationship Specialty Start Date End Date Nadir Grady MD [address] [facility] [place] [address] PCP - General Family Medicine 08/04/15 ToddArnaud vega, Formerly [facility] [address] [facility] [place] [address] Pharmacist Pharmacy 10/20/20 [place], [facility] [address] [facility] [place] [address] Pharmacist Pharmacy 03/15/21 Yolanda Dean (Pa) [address] [facility] [place] [address] Referring Pulmonary and Critical Care Medicine 02/07/22 Bench Technician Relationship Specialty Start Date End Date Nadir Grady MD [address] [facility] [place] [address] PCP - General Family Medicine 08/04/15 Sharri Briankati, [facility] [address] [facility] [place] [address] Pharmacist Pharmacy 10/20/20 Karen [facility] [address] [facility] [place] [address] Pharmacist Pharmacy 03/15/21 Yolanda Dean (Pa) [address] [facility] [place] [address] Referring Pulmonary and Critical Care Medicine 02/07/22 Bench Technician Relationship Specialty Start Date End Date Nadir Grady MD [address] [facility] [place] [address] PCP - General Family Medicine 08/04/15 [facility] [address] [facility] [place] [address] Pharmacist Pharmacy 10/20/20 [facility]stownKaren flor[facility] [address] [place] [address] Pharmacist Pharmacy 03/15/21 Yolanda Dean (Pa) [address] john paul [facility] [place] [address] Referring Pulmonary and Critical Care Medicine 02/07/22 Bench Technician Relationship Specialty Start Date End Date Nadir Grady MD [address] [facility] [place] [address] PCP - General Family Medicine 08/04/15 [facility]ud [facility] [address] [facility] [place] [address] Pharmacist Pharmacy 10/20/20 Feliz Karen[facility] [address] [facility] [place] [address] Pharmacist Pharmacy 03/15/21 Yloanda Dean (Pa) [address] [facility] [place] [address] Referring Pulmonary and Critical Care Medicine 02/07/22 Bench Technician Relationship Specialty Start Date End Date Nadir Grady MD [address] [facility] [place] [address] PCP - General Family Medicine 08/04/15 ToddArnaud vegaSS[facility] [address] [facility] [place] [address] Pharmacist Pharmacy 10/20/20 Karen [facility] [address] [facility] [place] [address] Pharmacist Pharmacy 03/15/21 Yolanda Dean (Pa) [address] [facility] [place] [address] Referring Pulmonary and Critical Care Medicine 02/07/22 Bench Technician Relationship Specialty Start Date End Date Nadir Grady MD [address] [facility] [place] [address] PCP - General Family Medicine 08/04/15 Toddsilvia ArnaudSS[facility] [address] [facility] [place] [address] Pharmacist Pharmacy 10/20/20 Karen [facility] [address] [facility] [place] [address] Pharmacist Pharmacy 03/15/21 Yolanda Dean (Pa) [address] [facility] [place] [address] Referring Pulmonary and Critical Care Medicine 02/07/22 Bench Technician Relationship Specialty Start Date End Date Nadir Grady MD [address] [facility] [place] [address] PCP - General Family Medicine 08/04/15 [facility]ud [facility] [address] [facility] [place] [address] Pharmacist Pharmacy 10/20/20 Feliz Karen, Former[facility] [address] [place] [address] Pharmacist Pharmacy 03/15/21 Yolanda Dean (Pa) [address] [place] [address] Referring Pulmonary and Critical Care Medicine 02/07/22 Bench Technician Relationship Specialty Start Date End Date Nadir Grady MD [address] [facility] [place] [address] PCP - General Family Medicine 08/04/15 Arnaud Harrell, Formerly [facility] [address] [facility] [place] [address] Pharmacist Pharmacy 10/20/20 Feliz, Karen, [facility] [address] [facility] [place] [address] Pharmacist Pharmacy 03/15/21 Yolanda Dean (Pa) [address] [place] [address] Referring Pulmonary and Critical Care Medicine 02/07/22 Bench Technician Relationship Specialty Start Date End Date Nadir Grady MD [address] [facility] [place] [address] PCP - General Family Medicine 08/04/15 Arnaud Harrell, [facility] [address] [facility] [place] [address] Pharmacist Pharmacy 10/20/20 Feliz Karen, [facility] [address] [facility] [place] [address] Pharmacist Pharmacy 03/15/21 Yolanda Dean (Camelia) [address] [facility] [place] [address] Referring Pulmonary and Critical Care Medicine 02/07/22 Bench Technician Relationship Specialty Start Date End Date Nadir Grady MD [address] [facility] [place] [address] PCP - General Family Medicine 08/04/15 Sharri [facility] [address] [facility] [place] [address] Pharmacist Pharmacy 10/20/20 Feliz Karen[facility] [address] [facility] [place] [address] Pharmacist Pharmacy 03/15/21 Yolanda Dean (Pa) [address] [facility] [place] [address] Referring Pulmonary and Critical Care Medicine 02/07/22 Bench Technician Relationship Specialty Start Date End Date Nadir Grady MD [address] [facility] [place] [address] PCP - General Family Medicine 08/04/15 Sharri [facility]ankati[facility] [address] [facility] [place] [address] Pharmacist Pharmacy 10/20/20 Feliz Karen[facility] [address] [facility] [place] [address] Pharmacist Pharmacy 03/15/21 Yolanda Dean PA [address] [facility] [place] [address] Referring Pulmonary and Critical Care Medicine 02/07/22 Bench Technician Relationship Specialty Start Date End Date Nadir Grady MD [address] [facility] [address] PCP - General Family Medicine 08/04/15 Arnaud Harrell, [facility] [address] [place] [address] Pharmacist Pharmacy 10/20/20 Karen [facility] [address] [facility] [place] [address] Pharmacist Pharmacy 03/15/21 Yolanda Dean PA [address] [facility] [place] [address] Referring Pulmonary and Critical Care Medicine 02/07/22 Bench Technician Relationship Specialty Start Date End Date Nadir Grady MD [address] [facility] [place] [address] PCP - General Family Medicine 08/04/15 Arnaud Harrell, [facility] [address] [facility] [place] [address] Pharmacist Pharmacy 10/20/20 Karen Piper, [facility] [address] [facility] [place] [address] Pharmacist Pharmacy 03/15/21 Yolanda Dean PA [address] [facility] [place] [address] Referring Pulmonary and Critical Care Medicine 02/07/22 Bench Technician Relationship Specialty Start Date End Date Nadir Grady MD [address] [facility] [place] [address] PCP - General Family Medicine 08/04/15 ToddArnaud vega, [facility] [address] [place] [address] Pharmacist Pharmacy 10/20/20 Karen [facility] [address] [place] [address] Pharmacist Pharmacy 03/15/21 Yolanda Dean PA [address] [place] [address] Referring Pulmonary and Critical Care Medicine 02/07/22 Bench Technician Relationship Specialty Start Date End Date Nadir Grady MD [address] [facility] [place] [address] PCP - General Family Medicine 08/04/15 [facility] [address] [facility] [address] Pharmacist Pharmacy 10/20/20 Karen Piper, [facility] [address] [facility] [place] [address] Pharmacist Pharmacy 03/15/21 Yolanda Dean PA [address] [facility] [place] [address] Referring Pulmonary and Critical Care Medicine 02/07/22 Bench Technician Relationship Specialty Start Date End Date Nadir Grady MD [address] [facility] [place] [address] PCP - General Family Medicine 08/04/15 Arnaud Harrell, [facility] [address] [facility] [place] [address] Pharmacist Pharmacy 10/20/20 Feliz Karen, [facility] [address] [facility] [place] [address] Pharmacist Pharmacy 03/15/21 Yolanda Dean PA [address] [facility] [place] [address] Referring Pulmonary and Critical Care Medicine 02/07/22 Bench Technician Relationship Specialty Start Date End Date Nadir Grady MD [address] [facility] [place] [address] PCP - General Family Medicine 08/04/15 Sharri [facility]ud[facility] [address] [facility] [place] [address] Pharmacist Pharmacy 10/20/20 Feliz Karen[facility] [address] [facility] [place] [address] Pharmacist Pharmacy 03/15/21 Yolanda Dean PA [address] [facility] [place] [address] Referring Pulmonary and Critical Care Medicine 02/07/22 Bench Technician Relationship Specialty Start Date End Date Nadir Grady MD [address] [facility] [place] [address] PCP - General Family Medicine 08/04/15 [place], [facility] [address] [facility] [place] [address] Pharmacist Pharmacy 03/15/21 Yolanda Dean PA [address] [facility] [place] [address] Referring Pulmonary and Critical Care Medicine 02/07/22 Bench Technician Relationship Specialty Start Date End Date Nadir Grady MD [address] [facility] [place] [address] PCP - General Family Medicine 08/04/15 Virginie Piperily, [facility] [address] [place] [address] Pharmacist Pharmacy 03/15/21 Yolanda Dean PA [address] [place] [address] Referring Pulmonary and Critical Care Medicine 02/07/22 [...] BE BASED ON THE PRIMARY CLINICAL RECORDS. [employer] provides no warranty or guarantee of the accuracy or completeness of information in this document.
[2023-10-15] MEDS: 0.9% Normal Saline (1000mL) 1,000 ML 150 ML IV (10:02)
[2023-10-15 10:17] VITALS: BP 128/69; PULSE 65; RESP 14; O2SAT 94
[2023-10-15 10:43] VITALS: BP 126/70; PULSE 58; RESP 18; O2SAT 96
[2023-10-15 10:59] LABS: Reflex Troponin-HS? (from REC) Y
[2023-10-15 11:18] LABS: Troponin-I HS 101 pg/mL (3.0-78.0)
[2023-10-15 11:39] VITALS: BP 156/69; PULSE 59; RESP 16; TEMP 36.5; O2SAT 94
== END 2023-10-15 12:05 | disposition home or self-care (01) ==
PROVIDERS: Emergency Provider Emergency Medicine; PCP Family Medicine; Visit Provider Emergency Medicine
DX: R07.9 Chest pain, unspecified (principal); E11.9 Type 2 diabetes mellitus without complications; I25.10 Atherosclerotic heart disease of native coronary artery without angina pectoris; I10 Essential (primary) hypertension; E78.5 Hyperlipidemia, unspecified; N40.0 Benign prostatic hyperplasia without lower urinary tract symptoms; R06.02 Shortness of breath; Z79.82 Long term (current) use of aspirin; Z79.84 Long term (current) use of oral hypoglycemic drugs; Z79.02 Long term (current) use of antithrombotics/antiplatelets; Z79.899 Other long term (current) drug therapy; Z95.5 Presence of coronary angioplasty implant and graft
CPT/HCPCS: 71045; 80048; 84484; 85025; 85379; 93005; 99284; A4216

== ENCOUNTER 2023-10-23 09:22 | Emergency (ER) | payer MEDICARE, SELFPAY ==
[2020-09-11 08:28] VITALS: BMI 29.2
[2023-10-23] VITALS (27 sets, daily range): BP systolic 103–170; BP diastolic 58–90; PULSE 60–68; RESP 11–20; TEMP 36.3–36.8; O2SAT 81–99; BMI 28.4
--- NOTE | 2023-10-23 09:30 | RAD_ITS ---
STUDY: X-RAY CHEST REASON FOR EXAM: Male, 68 years old. Chest pain TECHNIQUE: Single AP portable view of the chest. COMPARISON: Comparison is made with prior study dated October 15, 2023. FINDINGS: EKG electrodes are seen. A loop recording device is seen overlying the left side of the heart. The lungs are clear and expanded. There is no demonstrated pleural abnormality. Normal size heart. Normal mediastinum and bonnie. Normal visualized pulmonary arteries. There is atherosclerotic calcification of the aortic arch with tortuosity. There are diffuse degenerative changes of the visualized thoracic spine. Normal visualized ribs, clavicles, and shoulders. There is no demonstrated abnormality of the visualized soft tissue structures of the upper abdomen. RAD/Chest 1 View (Portable) IMPRESSION: No acute abnormality is seen. Stable examination. Electronically Signed: Robert Mandujano MD at 10:03 EST ,
--- NOTE | 2023-10-23 09:30 | EKG12_ITS ---
Test Reason : Blood Pressure : / mmHG Vent. 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
--- NOTE | 2023-10-23 09:33 | EDS_ITS ---
HPI History of Present Illness Chief Complaint: Edema Informant: patient Onset/Context/Timing Onset: Today Context: Sudden Onset Timing: Continuous Quality: Swelling Location: Tongue and lips Worsened by: Nothing Relieved by: Nothing Narrative Narrative: Patient presents with upper lip and tongue swelling that began today. Patient states that he is on losartan for his blood pressure. Patient states the swelling began suddenly when he woke up today. Patient denies any difficulty breathing or difficulty swallowing. Patient denies any difficulty talking. Patient denies any new exposures such as new soaps, shampoos, toothpaste, shaving cream, foods, or cologne. Patient admits to some mild chest pain. [facility] Medical History Atherosclerotic heart disease of [place] coronary artery without angina pectoris (10/10/23) Bilateral carotid artery stenosis BPH (benign prostatic hyperplasia) COVID-19 (06/2021) DDD (degenerative disc disease) Elevated LFTs Essential (primary) hypertension History of CAD (coronary artery disease) Hx of diabetes insipidus Hyperlipidemia Hypertension Sciatica Syncope (10/2021) Tremor of both hands Type 2 diabetes mellitus Home Medications aspirin 81 mg tablet,delayed release 81 mg PO DAILY@0800 [facility] 09/13/13 [History Last Taken 02/11/22] omega 6-jgz-vzg-fish oil 1,000 mg (120 mg-180 mg) capsule (Fish Oil) 1,000 mg PO QDAY supplement 01/06/18 [History Last Taken 12/29/21] metformin 500 mg tablet,extended release 24 hr 500 mg PO BID 07/25/20 [History Last Taken 02/10/22] lorazepam 0.5 mg tablet 0.5 mg PO BID PRN Anxiety 05/23/22 [History Last Taken Unknown] ferrous sulfate 325 mg (65 mg iron) tablet 325 mg PO DAILY 06/28/22 [History Last Taken Unknown] pantoprazole 40 mg tablet,delayed release (Protonix) 40 mg PO DAILY #30 tabs 07/16/22 [Rx Last Taken Unknown] nitroglycerin 0.4 mg sublingual tablet 0.4 mg sublingual Q5M PRN Chest Pain #25 tabs 09/03/22 [Rx Last Taken Unknown] ranolazine 500 mg tablet,extended release,12 hr 500 mg PO BID #60 tabs 05/15/23 [Rx Last Taken Unknown] atorvastatin 80 mg tablet 80 mg PO DAILY cholesterol #90 tabs 07/02/23 [Rx Last Taken Unknown] pioglitazone 45 mg tablet 45 mg PO DAILY diabetes 10/09/23 [History Last Taken Unknown] carvedilol 3.125 mg tablet 3.125 mg PO BID 30 days #60 tabs 10/11/23 [Rx Last Taken Unknown] ticagrelor 90 mg tablet (Brilinta) 90 mg PO BID 30 days #60 tabs 10/11/23 [Rx Last Taken Unknown] amlodipine 5 mg tablet 5 mg PO DAILY #10 tabs 10/23/23 [Rx Last Taken Unknown] Allergy/AdvReac Type Severity Reaction Status Date / Time fludrocortisone Allergy Severe ANGIOEDEMA Verified 10/15/23 08:38 [From [facility]] perfume AdvReac Other Verified 10/15/23 08:38 Family History Sister CAD (coronary artery disease) CVA (cerebral vascular accident) Diabetes Myocardial infarction Hx of CABG Mother Cancer Lung CA Surgical History History of cataract surgery History of coronary artery stent placement (07/23/21) History of hand surgery History of left heart catheterization (02/11/22) History of loop recorder (12/13/21) Hx of appendectomy Social History Smoking Status: Never smoker alcohol intake: never substance use type: does not use caffeine: No what type of physical activity do you participate in: none seatbelt use: always do you feel safe at home: Yes ROS ROS ED Constitutional Constitutional ED: Denies chills or fever(s) Eyes Eyes: Denies blurry vision or change in vision ENT ENT ED: Denies rhinorrhea or sore throat Cardiovascular Cardiovascular: Denies chest pain or palpitations Respiratory/Chest Respiratory/Chest: Denies cough or dyspnea Gastrointestinal Gastrointestinal: Denies nausea or vomiting Genitourinary Genitourinary ED: Denies dysuria or hematuria Musculoskeletal Musculoskeletal: Reports back pain; Denies neck pain Integumentary Denies abscess or rash Neurologic Neurologic: Denies headache(s) or weakness Allergic/Immunologic Allergic/Immunologic ED: Denies mouth swelling or urticaria EXAM Physical Exam Const Vital Signs: 10/23/23 09:23 10/23/23 09:23 Temperature 97.3 F L Temperature Source Temporal Pulse Rate 65 Respiratory Rate 14 Respiratory Effort Normal Non-Labored Respiratory Pattern Normal Blood Pressure 170/90 H Blood Pressure Mean 116 Pulse Ox 99 Oxygen Delivery Method Room Air Positive well nourished and well developed General Appearance ED: well developed and NAD HEENT Reports moist mucous membranes HEENT Narrative: Oropharynx is clear. Airway is patent. There is some mild edema of the upper lips. There is questionable edema of the tip of the tongue. Neck is supple. Trachea is midline. There is no JVD. There is no sublingual edema. There is n o evidence of Gino's angina. Neck supple and no JVD Resp normal respiratory effort and clear to auscultation bilaterally Cardio regular rate and regular rhythm GI non-tender and non-distended Palpation: soft Extremity normal to inspection General Extremety ED: Negative for edema or tenderness General Extremity: Negative for edema Neuro oriented x3, CN's II-XII intact bilaterally and no sensory deficits noted Sensorium / Orientation: alert Motor Exam: strength 5/5 throughout MDM MDM MDM Narrative Medical decision making narrative: Differential diagnosis includes angioedema due to ARB, allergic reaction, cardiac dysrhythmia, cardiac ischemia, electrolyte abnormality, and anxiety. EKG will be obtained to assess for cardiac dysrhythmia and cardiac ischemia. Chest x-ray will be obtained to assess for pneumonia and pneumothorax. CBC will be obtained to assess for leukocytosis or anemia. Basic metabolic profile will be obtained to assess for electrolyte abnormality and renal function. High- sensitivity troponin will be obtained to assess for cardiac ischemia. 2-hour repeat high-sensitivity troponin will be obtained to assess for ongoing cardiac ischemia. Lab Data Attestation: I reviewed the patient's lab results. Lab results narrative: CBC was reviewed. There is a mild anemia with a hemoglobin of 11.9 hematocrit 36.6. Basic metabolic profile was reviewed. Glucose was slightly elevated at 136. BUN was slightly elevated at 29. The remainder is within normal limits. High-sensitivity troponin was reviewed and was normal at 6. 2-hour repeat high- sensitivity troponin was reviewed and was normal at 6. Labs: Laboratory Results - last 24 hr 10/23/23 10/23/23 09:30 12:01 WBC 10.2 RBC 3.99 L Hgb 11.9 L Hct 36.6 L MCV 91.7 MCH 29.8 MCHC 32.5 RDW Std Deviation 42.7 RDW Coeff of Megan 12.8 Plt Count 229 MPV 9.0 Immature Gran % (Auto) 0.400 Neut % (Auto) 75.3 H Lymph % (Auto) 10.2 L [place] % (Auto) 10.0 Eos % (Auto) 3.4 Baso % (Auto) 0.7 Absolute Neuts (auto) 7.7 Absolute Lymphs (auto) 1.04 Nucleated RBC % 0 Sodium 136 Potassium 4.8 Chloride 107 Carbon Dioxide 26.0 Anion Gap 3 L BUN 29 H Creatinine 1.06 Estim Creat Clear Calc 73.16 Est GFR (MDRD) Af Amer 89 Est GFR (MDRD) Non-Af 73 BUN/Creatinine Ratio 27.4 H Glucose 136 H Calcium 9.9 Troponin I High Sens 6 6 Radiography Diagnostic Testing: Clinical Impression(s) from Imaging Studies Chest X-Ray 10/23/23 09:30 IMPRESSION: No acute abnormality is seen. Stable examination. Electronically Signed: Robert Mandujano MD at 10:03 EST , Portable 1 view chest x-ray was obtained. On my independent interpretation, lung romero are clear. There is normal cardiac silhouette. Bony thorax is normal. There is no acute process noted. Radiologist also interpreted the x-ra y and agrees. EKG Initial EKG: Attestation: I personally reviewed and interpreted this EKG as follows: Interpretation: Sinus Rhythm (68) and Non-Specific ST Changes Comments: EKG was obtained. On my independent interpretation, it showed a normal sinus rhythm with a rate of 68. [place] interval, QRS interval, and QTc intervals were all normal. [place] was normal. There are nonspecific ST-T wave changes. Prior EKG tracings: available for review Prior: Unchanged (10/15/2023) Treatment and Re-Evaluation :: Patient was given a dose of Benadryl here. Patient has an allergy to [place]. Patient is feeling better on reevaluation. Patient was advised of his findings. Patient was instructed to stop the losartan. Discharge Plan Triage Chief Complaint: Edema ED Provider: Jered Huff Dx/Rx/DC Orders Clinical Impression: Essential (primary) hypertension, Angioedema Instructions: ED Angioedema, ED Hypertension, Established Prescriptions: New amlodipine 5 mg tablet 5 mg PO DAILY Qty: 10 0RF Discontinued losartan 25 mg Tablet 25 mg PO DAILY 30 Days Qty: 30 0RF No Action omega 2-zox-fti-fish oil [Fish Oil] 1,000 mg (120 mg-180 mg) capsule 1,000 mg PO QDAY Patient Comments: 1200 mg PO QDAY metformin 500 mg tablet extended release 24 hr 500 mg PO BID pantoprazole [Protonix] 40 mg tablet,delayed release (DR/EC) 40 mg PO DAILY Qty: 30 11RF ranolazine 500 mg tablet extended release 12 hr 500 mg PO BID Qty: 60 3RF aspirin 81 MG tablet 81 mg PO DAILY@0800 lorazepam 0.5 mg Tablet 0.5 mg PO BID PRN (Reason: Anxiety) pioglitazone 45 mg tablet 45 mg PO DAILY Patient Comments: Take 1 tablet by mouth once daily. carvedilol 3.125 mg Tablet 3.125 mg PO BID 30 Days Qty: 60 0RF Brilinta 90 mg Tablet 90 mg PO BID 30 Days Qty: 60 0RF ferrous sulfate 325 mg (65 mg iron) tablet 325 mg PO DAILY nitroglycerin 0.4 mg tablet, sublingual 0.4 mg SUBLINGUAL Q5M PRN (Reason: Chest Pain) Qty: 25 6RF Rx Instructions: take one tablet every 5-15 to not exceed 3 tablets atorvastatin 80 mg tablet 80 mg PO DAILY Qty: 90 3RF Hold Instructions: itching all over, no rash Primary Care Provider: Nadir Abdalla Referrals: Nadir Abdalla MD [Primary Care Provider] - 3-5 Days Disposition Disposition: Home, Self Care
[2023-10-23] MEDS: DiphenhydrAMINE 50 MG/ML Syringe 25 MG IV (09:37)
[2023-10-23 09:41] LABS: Absolute Lymphocyte Count 1.04 X10^3/uL (0.83-4.51); Absolute Neutrophil Count 7.7 X10^3/uL (2.0-7.7); Basophil# 0.07 X10^3/uL; Basophil% 0.7 % (0-1); Eosinophil# 0.35 X10^3/uL; Eosinophils% 3.4 % (0-5); Hematocrit 36.6 % (40-54); Hemoglobin 11.9 g/dL (13.0-16.5); Lymphocyte # 1.04 X10^3/ul (0.83-4.51); Lymphocyte % 10.2 % (19-41); Mean Corp Hgb Conc 32.5 g/dL (32-36); Mean Corpuscular Hgb 29.8 pg (27.0-32.0); Mean Corpuscular Volume 91.7 fL (80-94); Monocyte# 1.02 X10^3/uL; NRBC Flagged by Analyzer 0 % (0-5); Neutrophil # 7.66 X10^3/uL (2.7-7.7); Neutrophil % 75.3 % (47-70); Platelet Count 229 K/mm3 (150-450); RBC Distribution Width CV 12.8 % (11.6-14.6); RBC Distribution Width SD 42.7 fl (35.1-43.9); Red Blood Count 3.99 M/mm3 (4.6-6.2); White Blood Count 10.2 K/mm3 (4.4-11.0)
[2023-10-23 09:54] LABS: Anion Gap 3 (5-15); BUN 29 mg/dL (7-18); BUN/Creat Ratio 27.4 RATIO (10-20); Calcium,Total 9.9 mg/dL (8.5-10.1); Chloride 107 mmol/L (98-107); Creatinine, Serum 1.06 mg/dL (0.70-1.30); EST Glomerular Filtration Rate 73 mL/min (>60); Est Glom Filt Rate - Afr Amer 89 mL/min (>60); Estimated Creatinine Clearance 73.16 ml/min; Glucose 136 mg/dL (74-106); Potassium 4.8 mmol/L (3.5-5.1); Sodium Level 136 mmol/L (136-145); Troponin-I HS (w/2H Reflex) 6 pg/mL (3.0-78.0)
--- OUTSIDE RECORDS SUMMARY | 2023-10-23 10:56 | XMS RPT_ITS | CCD ---
Author Name Unknown Address [address] [place] [address] Organization [facility] Care Team Providers Care Traffic Law Attorney Name Role Phone Andrew Patel Y Unavailable [...] Unavailable Nadir Grady MD Primary Care Provider [facility], Keti Unavailable [facility], Karen Unavailable Yolanda Dean ([place]) Unavailable Nadir Grady MD Primary Care Provider [facility], Keti Unavailable [facility], Karen Unavailable Yolanda Dean ([place]) Unavailable Nadir Grady MD Primary Care Provider [facility], Keti Unavailable [facility], Karen Unavailable Yolanda Dean ([place]) Unavailable Nadir Grady MD Primary Care Provider [facility], Keti Unavailable [facility], Karen Unavailable Yolanda Dean ([place]) Unavailable HANY JOHNSON Attending Unavaila THAI Williamson Referring Unavailable YSABEL, NADIR A Primary Care Unavailable Yolanda Dean ([place]) Unavailable Yolanda Jones Unavailable [phone] [facility], Keti Unavailable YSABEL, NADIR A Primary Care Unavailable YSABEL, NADIR A Primary Care Unavailable MARTHA BOSTON Referring Unavailable YSABEL, NADIR Ye Primary Care Unavailable MARTHA BOSTON Attending Unavailable [...] Translations: [FLUDROCORTISONE ] Drug Allergy 04-25-2022 Angioedema [facility] Work Phone: Medications Current Medications Medication Drug [...] disease (20 sources) Atherosclerotic heart disease of [place] coronary artery without angina pectoris; Translations: [Lipid-rich [...] (3 sources) Long-term drug therapy; Translations: [Other skilled nursing (current) drug therapy] Onset: 01-07-2017 01-07-2017 Past [...] 07-09-2016 Episodic Other aftercare (9 sources) Other skilled nursing (current) drug therapy; Translations: [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 therapy] Onset: 01-07-2017 01-07-2017 Episodic Other aftercare (20 sources) Patient encounter status; Translations: [Other skilled nursing (current) drug therapy] Onset: 03-02-2019 11-08-2021 Episodic [...] 97.81 [degF] Fer Merrill APRN.CNP Work Phone: [facility] 06-26-2023 09:26-0400 Body weight 84.46 kg Fer Merrill APRN.CNP Work Phone: [facility] 06-26-2023 09:26-0400 Diastolic blood pressure 80 mm[Hg] Fer Merrill APRN.CNP Work Phone: [facility] 06-26-2023 09:26-0400 Heart rate 72 /min Fer Merrill APRN.CNP Work Phone: [facility] 06-26-2023 09:26-0400 Respiratory rate 16 /min Fer Merrill APRN.CNP Work Phone: [facility] 06-26-2023 09:26-0400 SaO2% (BldA) [Mass fraction] 97 % Fer Merrill APRN.CNP Work Phone: [facility] 06-26-2023 09:26-0400 Systolic blood pressure 142 mm[Hg] Fer Merrill RETAIL SPECIALIST.MISSILE MECHANIC Work Phone: [facility] 04-01-2023 07:38-0400 Body temperature 97.5 [degF] Blanca Athy PA-C Work Phone: [facility] 04-01-2023 07:38-0400 Body weight 78.93 kg Blanca Athy PA-C Work Phone: [facility] 04-01-2023 07:38-0400 Diastolic blood pressure 74 mm[Hg] Blanca Athy PA-C Work Phone: [facility] 04-01-2023 07:38-0400 Heart rate 68 /min Blanca Athy PA-C Work Phone: [facility] 04-01-2023 07:38-0400 Respiratory rate 16 /min Blanca Athy PA-C Work Phone: [facility] 04-01-2023 07:38-0400 SaO2% (BldA) [Mass fraction] 98 % Blanca Athy PA-C Work Phone: [facility] 04-01-2023 07:38-0400 Systolic blood pressure 142 mm[Hg] Blanca Athy PA-C Work Phone: [facility] 03-10-2023 12:40-0400 Body temperature 98.01 [degF] Ute Shine RETAIL SPECIALIST.MISSILE MECHANIC Work Phone: [facility] 03-10-2023 12:40-0400 Body weight 79.29 kg Ute Rl RETAIL SPECIALIST.MISSILE MECHANIC Work Phone: [facility] 03-10-2023 12:40-0400 Diastolic blood pressure 78 mm[Hg] Ute Rl RETAIL SPECIALIST.MISSILE MECHANIC Work Phone: [facility] 03-10-2023 12:40-0400 Heart rate 71 /min Ute Rl RETAIL SPECIALIST.MISSILE MECHANIC Work Phone: [facility] 03-10-2023 12:40-0400 Respiratory rate 18 /min Ute Shine RETAIL SPECIALIST.MISSILE MECHANIC Work Phone: [facility] 03-10-2023 12:40-0400 SaO2% (BldA) [Mass fraction] 99 % Ute Shine RETAIL SPECIALIST.MISSILE MECHANIC Work Phone: [facility] 03-10-2023 12:40-0400 Systolic blood pressure 136 mm[Hg] Ute Shine RETAIL SPECIALIST.MISSILE MECHANIC Work Phone: [facility] 11-28-2022 12:33-0400 Body height 175 cm Martha Boston PA-C Work Phone: [facility] 11-28-2022 12:33-0400 Body temperature 98.1 [degF] Martha Boston PA-C Work Phone: [facility] 11-28-2022 12:33-0400 Body weight 78.47 kg Martha Boston PA-C Work Phone: [facility] 11-28-2022 12:33-0400 Diastolic blood pressure 66 mm[Hg] Martha Boston PA-C Work Phone: [facility] 11-28-2022 12:33-0400 Heart rate 66 /min Martha Boston PA-C Work Phone: [facility] 11-28-2022 12:33-0400 Respiratory rate 16 /min Martha Boston PA-C Work Phone: [facility] 11-28-2022 12:33-0400 Systolic blood pressure 136 mm[Hg] Martha Boston PA-C Work Phone: [facility] 11-21-2022 09:39-0400 Body temperature 97.5 [degF] Jenna Jim RETAIL SPECIALIST.MISSILE MECHANIC Work Phone: [facility] 11-21-2022 09:39-0400 Body weight 79.92 kg Jenna Dakeyahausen RETAIL SPECIALIST.MISSILE MECHANIC Work Phone: [facility] 11-21-2022 09:39-0400 Diastolic blood pressure 70 mm[Hg] Jenna Dahlhausen RETAIL SPECIALIST.MISSILE MECHANIC Work Phone: [facility] 11-21-2022 09:39-0400 Heart rate 73 /min Jenna Dahlhausen RETAIL SPECIALIST.MISSILE MECHANIC Work Phone: [facility] 11-21-2022 09:39-0400 Respiratory rate 18 /min Jenna Dahlhausen RETAIL SPECIALIST.MISSILE MECHANIC Work Phone: [facility] 11-21-2022 09:39-0400 SaO2% (BldA) [Mass fraction] 98 % Jenna Dahlhausen RETAIL SPECIALIST.MISSILE MECHANIC Work Phone: [facility] 11-21-2022 09:39-0400 Systolic blood pressure 115 mm[Hg] Jenna Dahlhausen RETAIL SPECIALIST.MISSILE MECHANIC Work Phone: [facility] 11-12-2022 11:29-0400 Body temperature 97.3 [degF] Fer Garfield RETAIL SPECIALIST.MISSILE MECHANIC Work Phone: [facility] 11-12-2022 11:29-0400 Body weight 80.83 kg Fer Garfield RETAIL SPECIALIST.MISSILE MECHANIC Work Phone: [facility] 11-12-2022 11:29-0400 Diastolic blood pressure 78 mm[Hg] Fer Garfield RETAIL SPECIALIST.MISSILE MECHANIC Work Phone: [facility] 11-12-2022 11:29-0400 Heart rate 86 /min Fer Garfield RETAIL SPECIALIST.MISSILE MECHANIC Work Phone: [facility] 11-12-2022 11:29-0400 Respiratory rate 18 /min Fer Garfield RETAIL SPECIALIST.MISSILE MECHANIC Work Phone: [facility] 11-12-2022 11:29-0400 SaO2% (BldA) [Mass fraction] 97 % Fer Garfield RETAIL SPECIALIST.MISSILE MECHANIC Work Phone: [facility] 11-12-2022 11:29-0400 Systolic blood pressure 142 mm[Hg] Fer Garfield RETAIL SPECIALIST.MISSILE MECHANIC Work Phone: [facility] 10-29-2022 16:10-0500 Body height 177.8 cm Jnenifer Savanah PA-C Work Phone: [facility] 10-29-2022 16:10-0500 Body temperature 97.9 [degF] Jennifer Higginsport PA-C Work Phone: [facility] 10-29-2022 16:10-0500 Body weight 81.19 kg Jennifer Savanah PA-C Work Phone: [facility] 10-29-2022 16:10-0500 Diastolic blood pressure 64 mm[Hg] Jennifer Higginsport PA-C Work Phone: [facility] 10-29-2022 16:10-0500 Heart rate 82 /min Jennifer Higginsport PA-C Work Phone: [facility] 10-29-2022 16:10-0500 SaO2% (BldA) [Mass fraction] 96 % Jennifer Savanah PA-C Work Phone: [facility] 10-29-2022 16:10-0500 Systolic blood pressure 124 mm[Hg] Jennifer Savanah PA-C Work Phone: [facility] 10-14-2022 12:30-0500 Diastolic blood pressure 81 mm[Hg] Thai Santiago MD Work Phone: [facility] 10-14-2022 12:30-0500 Heart rate 82 /min Thai Santiago MD Work Phone: [facility] 10-14-2022 12:30-0500 Respiratory rate 20 /min Thai Santiago MD Work Phone: [facility] 10-14-2022 12:30-0500 SaO2% (BldA) [Mass fraction] 97 % Thai Santiago MD Work Phone: [facility] 10-14-2022 12:30-0500 Systolic blood pressure 175 mm[Hg] Thai Santiago MD Work Phone: [facility] 10-14-2022 11:55-0500 Body temperature 97.5 [degF] Thai Santiago MD Work Phone: [facility] 10-14-2022 11:05-0500 Body height 177.8 cm Thai Santiago MD Work Phone: [facility] 10-14-2022 11:05-0500 Body weight 78.93 kg Thai Santiago MD Work Phone: [facility] 10-05-2022 11:43-0500 Body weight 78.93 kg Nadir Grady MD Work Phone: [facility] 10-05-2022 11:43-0500 Diastolic blood pressure 68 mm[Hg] Nadir Grady MD Work Phone: [facility] 10-05-2022 11:43-0500 Heart rate 77 /min Nadir Grady MD Work Phone: [facility] 10-05-2022 11:43-0500 Respiratory rate 16 /min Nadir Grady MD Work Phone: [facility] 10-05-2022 11:43-0500 SaO2% (BldA) [Mass fraction] 96 % Nadir Grady MD Work Phone: [facility] 10-05-2022 11:43-0500 Systolic blood pressure 110 mm[Hg] Nadir Grady MD Work Phone: [facility] 09-23-2022 13:25-0500 Body temperature 97.81 [degF] Miladys Praisler-Wood RETAIL SPECIALIST.MISSILE MECHANIC Work Phone: [facility] 09-23-2022 13:25-0500 Body weight 81.1 kg Miladys Praisler-Wood RETAIL SPECIALIST.MISSILE MECHANIC Work Phone: [facility] 09-23-2022 13:25-0500 Diastolic blood pressure 72 mm[Hg] Miladys Praisler-Wood RETAIL SPECIALIST.MISSILE MECHANIC Work Phone: [facility] 09-23-2022 13:25-0500 Heart rate 75 /min Miladys Praisler-Wood RETAIL SPECIALIST.MISSILE MECHANIC Work Phone: [facility] 09-23-2022 13:25-0500 Respiratory rate 21 /min Miladys Praisler-Wood RETAIL SPECIALIST.MISSILE MECHANIC Work Phone: [facility] 09-23-2022 13:25-0500 SaO2% (BldA) [Mass fraction] 98 % Miladys Praisler-Wood RETAIL SPECIALIST.MISSILE MECHANIC Work Phone: [facility] 09-23-2022 13:25-0500 Systolic blood pressure 152 mm[Hg] Miladys Praisler-Wood RETAIL SPECIALIST.MISSILE MECHANIC Work Phone: [facility] 09-19-2022 15:25-0500 Body temperature 97.7 [degF] Jenna Dahlhausen RETAIL SPECIALIST.MISSILE MECHANIC Work Phone: [facility] 09-19-2022 15:25-0500 Body weight 78.65 kg Jenna Dahlhausen RETAIL SPECIALIST.MISSILE MECHANIC Work Phone: [facility] 09-19-2022 15:25-0500 Diastolic blood pressure 82 mm[Hg] Jenna Dahlhausen RETAIL SPECIALIST.MISSILE MECHANIC Work Phone: [facility] 09-19-2022 15:25-0500 Heart rate 76 /min Jenna Dahlhausen RETAIL SPECIALIST.MISSILE MECHANIC Work Phone: [facility] 09-19-2022 15:25-0500 Respiratory rate 16 /min Jenna Dahlhausen RETAIL SPECIALIST.MISSILE MECHANIC Work Phone: [facility] 09-19-2022 15:25-0500 SaO2% (BldA) [Mass fraction] 95 % Jenna Dahlhausen RETAIL SPECIALIST.MISSILE MECHANIC Work Phone: [facility] 09-19-2022 15:25-0500 Systolic blood pressure 128 mm[Hg] Jenna Dahlhausen RETAIL SPECIALIST.MISSILE MECHANIC Work Phone: [facility] 08-21-2022 09:03-0500 Body weight 78.02 kg Nadir Grady MD Work Phone: [facility] 08-21-2022 09:03-0500 Diastolic blood pressure 74 mm[Hg] Nadir Grady MD Work Phone: [facility] 08-21-2022 09:03-0500 Heart rate 76 /min Nadir Grady MD Work Phone: [facility] 08-21-2022 09:03-0500 Respiratory rate 16 /min Nadir Grady MD Work Phone: [facility] 08-21-2022 09:03-0500 Systolic blood pressure 128 mm[Hg] Nadir Grady MD Work Phone: [facility] 08-05-2022 12:56-0500 Body height 177.8 cm Mike Lucero MD Work Phone: [facility] 08-05-2022 12:56-0500 Body weight 77.11 kg Mike Lucero MD Work Phone: [facility] 08-05-2022 12:56-0500 Diastolic blood pressure 79 mm[Hg] Mike Lucero MD Work Phone: [facility] 08-05-2022 12:56-0500 Heart rate 73 /min Mike Lucero MD Work Phone: [facility] 08-05-2022 12:56-0500 Respiratory rate 18 /min Mike Lucero MD Work Phone: [facility] 08-05-2022 12:56-0500 Systolic blood pressure 159 mm[Hg] Mike Lucero MD Work Phone: [facility] 07-30-2022 15:28-0500 Body weight 77.11 kg Gamal Mathis APRN.MISSILE MECHANIC Work Phone: [facility] 07-30-2022 15:28-0500 Diastolic blood pressure 70 mm[Hg] Gamal Mathis APRN.MISSILE MECHANIC Work Phone: [facility] 07-30-2022 15:28-0500 Heart rate 78 /min Gamal Mathis RETAIL SPECIALIST.MISSILE MECHANIC Work Phone: [facility] 07-30-2022 15:28-0500 Respiratory rate 16 /min Gamal Mathis RETAIL SPECIALIST.MISSILE MECHANIC Work Phone: [facility] 07-30-2022 15:28-0500 Systolic blood pressure 136 mm[Hg] Gamal Mathis RETAIL SPECIALIST.MISSILE MECHANIC Work Phone: [facility] 06-27-2022 09:25-0400 Body height 177.8 cm Thai Santiago MD Work Phone: [facility] 06-27-2022 09:25-0400 Body temperature 97.39 [degF] Thai Santiago MD Work Phone: [facility] 06-27-2022 09:25-0400 Body weight 71.67 kg Thai Santiago MD Work Phone: [facility] 06-27-2022 09:25-0400 Diastolic blood pressure 62 mm[Hg] Thai Santiago MD Work Phone: [facility] 06-27-2022 09:25-0400 Heart rate 80 /min Thai Santiago MD Work Phone: [facility] 06-27-2022 09:25-0400 SaO2% (BldA) [Mass fraction] 97 % Thai Santiago MD Work Phone: [facility] 06-27-2022 09:25-0400 Systolic blood pressure 110 mm[Hg] Thai Santiago MD Work Phone: [facility] 06-25-2022 07:59-0400 Body temperature 98.71 [degF] Martha ABRAHAMC Work Phone: [facility] 06-25-2022 07:59-0400 Body weight 70.76 kg Martha Boston PA-C Work Phone: [facility] 06-25-2022 07:59-0400 Diastolic blood pressure 50 mm[Hg] Martha DENISE-C Work Phone: [facility] 06-25-2022 07:59-0400 Heart rate 76 /min Martha ABRAHAMC Work Phone: [facility] 06-25-2022 07:59-0400 Respiratory rate 16 /min Martha Boston PA-C Work Phone: [facility] 06-25-2022 07:59-0400 Systolic blood pressure 80 mm[Hg] Martha Boston PA-C Work Phone: [facility] 05-13-2022 07:45-0400 Body temperature 98.1 [degF] Martha Boston PA-C Work Phone: [facility] 05-13-2022 07:45-0400 Body weight 73.48 kg Martha Boston PA-C Work Phone: [facility] 05-13-2022 07:45-0400 Diastolic blood pressure 66 mm[Hg] Martha Boston PA-C Work Phone: [facility] 05-13-2022 07:45-0400 Heart rate 72 /min Martha Boston PA-C Work Phone: [facility] 05-13-2022 07:45-0400 Respiratory rate 16 /min Martha Boston PA-C Work Phone: [facility] 05-13-2022 07:45-0400 Systolic blood pressure 138 mm[Hg] Martha Boston PA-C Work Phone: [facility] 04-25-2022 13:14-0400 Body temperature 97.81 [degF] Rin Gagnon RETAIL SPECIALIST.MISSILE MECHANIC Work Phone: [facility] 04-25-2022 13:14-0400 Body weight 79.52 kg Rin Latiferich RETAIL SPECIALIST.MISSILE MECHANIC Work Phone: [facility] 04-25-2022 13:14-0400 Diastolic blood pressure 70 mm[Hg] Rin Latiferich RETAIL SPECIALIST.MISSILE MECHANIC Work Phone: [facility] 04-25-2022 13:14-0400 Heart rate 86 /min Rin Diederich RETAIL SPECIALIST.MISSILE MECHANIC Work Phone: [facility] 04-25-2022 13:14-0400 Respiratory rate 16 /min Rin Latifbobby RETAIL SPECIALIST.MISSILE MECHANIC Work Phone: [facility] 04-25-2022 13:14-0400 SaO2% (BldA) [Mass fraction] 97 % Rin Gagnon RETAIL SPECIALIST.MISSILE MECHANIC Work Phone: [facility] 04-25-2022 13:14-0400 Systolic blood pressure 109 mm[Hg] Rin Latifbobby RETAIL SPECIALIST.MISSILE MECHANIC Work Phone: [facility] 04-19-2022 08:09-0400 Body temperature 98.2 [degF] Martha Boston PA-C Work Phone: [facility] 04-19-2022 08:09-0400 Body weight 79.83 kg Martha Boston PA-C Work Phone: [facility] 04-19-2022 08:09-0400 Diastolic blood pressure 68 mm[Hg] Martha Boston PA-C Work Phone: [facility] 04-19-2022 08:09-0400 Heart rate 96 /min Martha Boston PA-C Work Phone: [facility] 04-19-2022 08:09-0400 Respiratory rate 18 /min Martha Boston PA-C Work Phone: [facility] 04-19-2022 08:09-0400 Systolic blood pressure 118 mm[Hg] Martha Boston PA-C Work Phone: [facility] 02-07-2022 07:50-0400 Body temperature 97.81 [degF] Jenna Lamhausen RETAIL SPECIALIST.MISSILE MECHANIC Work Phone: [facility] 02-07-2022 07:50-0400 Body weight 78.93 kg Jenna Lamhausen RETAIL SPECIALIST.MISSILE MECHANIC Work Phone: [facility] 02-07-2022 07:50-0400 Diastolic blood pressure 60 mm[Hg] Jenna Dahlhausen RETAIL SPECIALIST.MISSILE MECHANIC Work Phone: [facility] 02-07-2022 07:50-0400 Heart rate 83 /min Jenna Dahlhausen RETAIL SPECIALIST.MISSILE MECHANIC Work Phone: [facility] 02-07-2022 07:50-0400 Respiratory rate 18 /min Jenna Dahlhausen RETAIL SPECIALIST.MISSILE MECHANIC Work Phone: [facility] 02-07-2022 07:50-0400 SaO2% (BldA) [Mass fraction] 99 % Jenna Dahlhausen RETAIL SPECIALIST.MISSILE MECHANIC Work Phone: [facility] 02-07-2022 07:50-0400 Systolic blood pressure 122 mm[Hg] Jenna Dahlhausen RETAIL SPECIALIST.[facility] Work Phone: [facility] 02-07-2017 09:55-0400 BMI (Body Mass Index) 26.78 [...] Mass Index) 27.05 kg/m2 Beulah Terrell RN [facility] Work Phone: 01-08-2017 13:55-0400 Body weight 88 kg Griselda Bell RN [facility] Work Phone: 01-08-2017 13:55-0400 BP Diastolic 60 mm[Hg] Beulah Terrell RN [facility] Work Phone: 01-08-2017 13:55-0400 BP Systolic 100 mm[Hg] Beulah Terrell RN [facility] Work Phone: 01-08-2017 13:55-0400 Height 180.34 cm Beulah Terrell RN [facility] Work Phone: 01-08-2017 13:55-0400 Pulse (Heart Rate) 81 /min Beulah Terrell RN [facility] Work Phone: 01-08-2017 13:55-0400 Respiratory Rate 20 /min Beulah Terrell RN [facility] Work Phone: 01-08-2017 13:55-0400 Weight 88 kg Beulah Terrell RN [facility] Work Phone: Encounters Encounter Date Encounter Type Care Provider Facility Start: 10-16-2023 Chart abstracting Nadir pope MD Work Phone: [facility] Procedures Date Procedure Procedure Detail Performing Clinician [...] Start: 07-09-2022 Ct thorax w/contrast material Martha picahrdo PA-C Work Phone: Start: 07-01-2022 Us abdominal real time w/image limited Martha Boston PA-C Work Phone: Start: 05-13-2022 INFLUENZA SEASONAL QUADRIVALENT HIGH DOSE AGE 65+ Marthaelissa Boston PA-C Work Phone: Start: 04-17-2022 Lipid [...] Jd Kern MD Start: 01-08-2017 End: 02-07-2017 SHOPFITTER Jd Kern MD Start: 01-08-2017 End: 01-16-2017 Echocardiography Jd Kern MD Start: 01-08-2017 End: 02-10-2017 Electrocardiogram, complete Jd Locke i, MD Start: 01-08-2017 End: 02-07-2017 Follow Up Appt 3 months Abdirahman Solano Start: 01-08-2017 End: 02-10-2017 Left Heart Cath Jd Kern MD Plan of Treatment Date Care Activity Detail Author Start: 10-14-2032 Colonoscopy COLONOSCOPY [facility] Start: 10-14-2032 COLORECTAL CANCER SCREENING COLORECTAL CANCER SCREENING [facility] Start: 10-14-2032 Screening for malign ant neoplasm of colon [facility] Start: 03-01-2031 Urine microalbumin profile [facility] Start: 10-18-2029 Urine microalbumin profile DTA P,TDAP,TD (3 - Td or Tdap) [facility] Start: 11-02-2026 PROSTATE CANCER SCRE ENING DISCUSSION PROSTATE CANCER SCREENING DISCUSSION [facility] Start: 09-03-2024 BP Controlled (<130/80) BP Controlle d (<130/80) [facility] Start: 09-02-2024 Glaucoma screening Dilated Retinal E xam [facility] Start: 06-17-2024 Annual PCP Team Gastroenterology Nurse cielo Disease Visit Annual PCP Team Chronic Disease Visit [facility] Start: 06-17-2024 BP Controlled (<130/80) BP Controlle d (<130/80) [facility] Start: 06-17-2024 Hepatitis B surface antibody level LDL Cholesterol [facility] Start: 02-18-2024 BP CONTROLLED (<130/80) BP CONTROLLE D (<130/80) [facility] Start: 12-17-2023 Hemoglobin A1c measurement HbA1C [facility] Start: 12-17-2023 Hemoglobin A1c/Hemoglobin.total in Blood HbA1C [facility] Start: 11-29-2023 ANNUAL PCP TEAM LPN MEDICAL ASSISTANT CIELO DISEASE VISIT ANNUAL PCP TEAM CHRONIC DISEASE VISIT [facility] Start: 11-29-2023 Hepatitis B screening URINE AL BUMIN:CREATININE RATIO [facility] Start: 11-29-2023 Hepatitis B surface antibody level LDL CHOLESTEROL [facility] Start: 11-22-2023 BP CONTROLLED (<130/80) BP CONTROLLE D (<130/80) [facility] Start: 10-29-2023 BP CONTROLLED (<130/80) BP CONTROLLE D (<130/80) [facility] Start: 10-14-2023 Colonoscopy COLONOSCOPY [facility] Start: 10-05-2023 BP CONTROLLED (<130/80) BP CONTROLLE D (<130/80) [facility] Start: 10-04-2023 ANNUAL PCP TEAM LPN MEDICAL ASSISTANT CIELO DISEASE VISIT ANNUAL PCP TEAM CHRONIC DISEASE VISIT [facility] Start: 09-01-2023 Advance Directive Discussion Advance Directive Discussion [facility] Start: 09-01-2023 Depression Assessment Depression Ass essment [facility] Start: 08-21-2023 ANNUAL PCP TEAM LPN MEDICAL ASSISTANT CIELO DISEASE VISIT ANNUAL PCP TEAM CHRONIC DISEASE VISIT [facility] Start: 08-21-2023 BP CONTROLLED (<130/80) BP CONTROLLE D (<130/80) [facility] Start: 08-21-2023 COVID-19 VACCINE (2 - Pfizer series) COVID-19 VACCINE (2 - Pfizer series) [facility] Immunizations Immunization Date Immunization Notes Care Provider Fa cility 05-15-2023 respiratory syncytia l virus (RSV) vaccine, bivalent (ABRYSVO) Naidr Grady MD Work Phone: [facility] 05-15-2023 Seasonal trivalent influenza vaccine, adjuvanted, preservative free Nadir Grady MD Work Phone: [facility] 05-13-2022 influenza, high-dose , quadrivalent vaccine (FLUZONE HIGH DOSE QUADRIVALENT) Martha Boston PA-C Work Phone: [facility] 05-13-2022 pneumococcal (PCV20) vaccine, 20 valent (PREVNAR 20) Martha Boston PA-C Work Phone: [facility] 05-13-2022 pneumococcal Conjuga te, unspecified formulation Martha Boston PA-C Work Phone: [facility] Work Phone: 03-01-2021 tetanus toxoid, redu radha diphtheria toxoid, and acellular pertussis vaccine, adsorbed Martha Boston PA-C Work Phone: [facility] 08-10-2020 zoster vaccine recombinant Nadir Grady MD Work Phone: [facility] 04-17-2020 influenza, high dose seasonal, preservative-free Nadir Grady MD Work Phone: [facility] 04-17-2020 zoster vaccine recombinant Nadir Grady MD Work Phone: [facility] 10-18-2019 pneumococcal conjuga te vaccine, 13 valent Nadir Grady MD Work Phone: [facility] 10-18-2019 tetanus toxoid, redu rahda diphtheria toxoid, and acellular pertussis vaccine, adsorbed Nadir Grady MD Work Phone: [facility] 06-17-2019 influenza, high dose seasonal, preservative-free Nadir Grady MD Work Phone: [facility] 06-12-2018 influenza, high dose seasonal, preservative-free Nadir Grady MD Work Phone: [facility] 06-12-2018 pneumococcal conjuga te vaccine, 13 valent Nadir Grady MD Work Phone: [facility] 05-04-2017 influenza, injectabl e, quadrivalent, contains preservative Nadir Grady MD Work Phone: [facility] Work Phone: 02-06-2017 pneumococcal polysaccharide vaccine, 23 valent Nadir Grady MD Work Phone: [facility] 06-18-2016 influenza virus vacc ine, unspecified formulation Nadir Grady MD Work Phone: [facility] Work Phone: 07-10-2015 influenza virus vacc ine, unspecified formulation Nadir Grady MD Work Phone: [facility] Work Phone: 07-24-2011 tetanus toxoid, redu radha diphtheria toxoid, and acellular pertussis vaccine, adsorbed Nadir Grady MD Work Phone: [facility] Work Phone: 05-18-2011 influenza virus vacc ine, unspecified formulation Nadir Grady MD Work Phone: [facility] Work Phone: 07-10-2010 influenza virus vacc ine, unspecified formulation Nadir Grady MD Work Phone: [facility] Work Phone: 06-09-2009 influenza virus vacc ine, unspecified formulation Nadir Grady MD Work Phone: [facility] Work Phone: 06-07-2008 influenza virus vacc ine, unspecified formulation Nadir Grady MD Work Phone: [facility] 07-06-2007 influenza virus vacc ine, unspecified formulation Nadir Grady MD Work Phone: [facility] Work Phone: 07-05-2006 influenza virus vacc ine, unspecified formulation Nadir Grady MD Work Phone: [facility] Work Phone: Payers Date Payer Category Payer Medicare [id number] 2018 Medicare HUMANA MEDICARE HUMANA GOLD PLUS [id number] 2018-Present [phone] [address] [address] [place] [address] [facility] [id number] 2018 Medicare HUMANA MEDICARE HUMANA GOLD PLUS [id number] 2018-Present [phone] [address] [address] [place] [address] O [id number] 1999 Unknown [facility] COMP [id number] 1999-Present [phone] [place] [address] [facility] [id number] 1999 Unknown [facility] [place] [employer] COMP [id number] 1999-Present [phone] [place] [address] [facility] [id number] Social History Date Type Detail Facility Start: 08-04-2015 End: 04-19-2022 Tobacco smoking status NYIS Never smoked tobacco [facility] Work Phone: End: 07-02-2014 History of tobacco use Chews Tobacco [facility] Work Phone: Start: 11-08-2021 End: 09-03-2023 Alcohol intake Current non-drinker of alcohol (finding) [facility] Start: 11-07-2020 End: 04-19-2022 History SDOH Alcohol Frequency 1 [facility] Start: 11-07-2020 End: 04-19-2022 History SDOH Alcohol Std Drinks 98 [facility] Start: 11-07-2020 End: 04-19-2022 History SDOH Social Connections Phone 5 [facility] Start: 11-07-2020 End: 04-19-2022 History SDOH Social Connections Get Together 2 [facility] Start: 11-07-2020 End: 04-19-2022 History SDOH Social Connections Living 4 [facility] Start: 11-07-2020 Education 11 [facility] Start: 08-04-2015 End: 04-19-2022 Tobacco Comment 1 can of chewing tobacco every 3 days PT QUIT 2014 [facility] Start: 1955 Sex Assigned At Not on file C [facility] Start: 10-29-2021 End: 08-05-2022 Exposure to SARS-CoV-2 (event) Not sure [facility] History of tobacco use Cigarette Smoker C [facility] Work Phone: Start: 08-04-2015 End: 04-19-2022 Tobacco use and exposure Former smokeless tobacco user [facility] Work Phone: Start: 04-19-2022 History SDOH Social Connections Nondenominational 3 [facility] Start: 04-19-2022 End: 06-17-2023 History of Social function [facility] Start: 04-19-2022 End: 06-17-2023 Social connection and isolation panel [facility] Do you belong to any clubs or organizations such as religious groups, unions, fraternal or athletic groups, or school groups? No [facility] How often do you att end meetings of the clubs or organizations you belong to? Patient refused [facility] Are you now , , , , never or living with a partner? [facility] How often to you hav e a drink containing alcohol? Never [facility] How hard is it for y ou to pay for the very basics like food, housing, medical care, and heating Not very hard [facility] Do you feel stress - tense, restless, nervous, or anxious, or unable to sleep at night because your mind is troubled all the time - these days [OSQ] Very much [facility] (I/We) worried whetyron er (my/our) food would run out before (I/we) got money to buy more. Sometimes true [facility] Medical Equipment Procedure Code Equipment Code Equipment Origin al Text Equipment Identifier Dates Start: 10-14-2016 End: 06-26-2022 Clinical Notes 10-03-2016 to 10-16-2023 Luis E Agudelo LPN - 10/16/2023 8:12 AM Luis E Clarke LPN - 10/11/2023 8:35 AM Luis E Clarke LPN - 10/10/2023 7:22 AM Fer Price APRN.CNP - 06/26/2023 9:40 AM EDT Note Date & Type Note Facility 10-16-2023 Note HNO ID: [id number] Author: LUIS E AGUDELO LPN Service: ? Author Type: LICENSED NURSE Type: Progress Notes Filed: 10/16/2023 08:17 Note Text: Scan on 10/15/2023 1:30 PM by Sonido Lemon PA-C: Consultation - Emergency Medicine Scan on 10/15/2023 9:30 AM by Sonido Lemon PA-C: X-ray [facility] 10-16-2023 History of Present illness Narrative Scan on 10/15/2023 1:30 PM by Sonido Lemon PA-C: Consultation - Emergency Medicine Scan on 10/15/2023 9:30 AM by Sonido Lemon PA-C: X-ray documented in this encounter [facility] 10-11-2023 Note HNO ID: [id number] Author: LUIS E AGUDELO LPN Service: ? Author Type: LICENSED NURSE Type: Progress Notes Filed: 10/11/2023 08:39 Note Text: Scan on 10/10/2023 3:46 PM by Sonido Lemon PA-C: Consultation - Cardiology Scan on 10/10/2023 4:17 PM by Sonido Lemon PA-C: Cardiac Cath Scan on 10/10/2023 4:19 PM by Sonido Lemon PA-C: Echo [facility] 10-11-2023 History of Present illness Narrative Scan on 10/10/2023 3:46 PM by Sonido Lemon PA-C: Consultation - Cardiology Scan on 10/10/2023 4:17 PM by Sonido Lemon PA-C: Cardiac Cath Scan on 10/10/2023 4:19 PM by Sonido Lemon PA-C: Echo documented in this encounter [facility] 10-10-2023 Note HNO ID: [id number] Author: LUIS E AGUDELO LPN Service: ? Author Type: LICENSED NURSE Type: Progress Notes Filed: 10/10/2023 07:27 Note Text: Scan on 10/09/2023 8:13 PM by Sonido Lemon PA-C: Consultation - Emergency Medicine Scan on 10/09/2023 6:58 PM by Sonido Lemon PA-C: X-ray Scan on 10/09/2023 9:13 PM by Sonido Lemon PA-C [facility] 10-10-2023 History of Present illness Narrative Scan on 10/09/2023 8:13 PM by Sonido Lemon PA-C: Consultation - Emergency Medicine Scan on 10/09/2023 6:58 PM by Sonido Lemon PA-C: X-ray Scan on 10/09/2023 9:13 PM by Sonido Lemon PA-C documented in this encounter [facility] 09-03-2023 Note HNO ID: [id number] Author: Blanca Lee PA-C Service: ? Author Type: Physician Shredded Filler Hopper Feeder Type: Progress Notes Filed: 09/03/2023 3:40 PM Note Text: This note was created using [employer]. Subjective Michael Boss is a 68 year [...] lumbar 06/30/2016 Multi level, worse L2-L3 Diabetes ([facility]) Diabetic eye exam ([facility]) 03/19/2017 Last done: 10/01/2018 Elevated LFTs 08/05/2015 [...] once daily. Managed by [facility] 30 tablet 11 omega-3 fatty acids 1,000 m (more content not included)... [facility] 09-02-2023 Note HNO ID: [id number] Author: Pat Feldman LPN Service: ? Author Type: LICENSED NURSE Type: Progress Notes Filed: 09/02/2023 4:50 PM Note Text: Scan on 09/02/2023 4:28 PM by Provider, HOANG Head: Consultation - Ophthalmology [facility] 06-26-2023 Miscellaneous Notes Contacted patient and let him that [facility] prescribes the medication. Alayna Urrutia MA Patient has been identified by name and date of : Yes, Provider Nadir Grady Date 06/26/23 Time 9:45 Patient phones for refill(s): Requested Prescriptions Pending Prescriptions Disp Refills clopidogrel (PLAVIX) 75 mg tablet 30 tablet 11 Sig: Take 1 tablet by mouth once daily. Managed by [facility] Date of last office visit in primary care: 06/17/2023 Date of next office visit in primary care: Visit date not found Last 2 Encounter Wt Readings: Date: Wt: 06/26/2023 84.5 kg (186 lb 3.2 oz) 06/17/2023 85.7 kg (189 lb) Previous labs/tests for medication: Not applicable Please advise. Thank you. Yolanda Brower. documented in this encounter [facility] 06-26-2023 Miscellaneous Notes Pt called and is [...] Augmentin, please advise documented in this encounter [facility] 06-26-2023 Note HNO ID: [id number] Author: Fer Merrill APRN.MISSILE MECHANIC Service: ? Author Type: Nurse Practitioner Type: [...] Date 2D ECHO (EXEP) 01/16/2017 EF=60%, 1+ LA and TI CATARACT EXTRACTION HX Left 10/2019 [...] 2 times d (more content not included)... [facility] 06-26-2023 History of Present illness Narrative [...] Date 2D ECHO (EXEP) 01/16/2017 EF=60%, 1+ LA and TI CATARACT EXTRACTION HX Left 10/2019 [...] tablet by mouth once daily. Managed by [facility] omega-3 fatty acids 1,000 mg [...] and atraumatic. Nose: Nose normal. Mouth/Throat: Lips: Darden. Mouth: Mucous membranes are moist. Pulmonary: Effort: [...] NYSTATIN 100,000 UNIT/ML ORAL SUSPENSION Fer Merrill APRN.MISSILE MECHANIC documented in this encounter [facility] 06-19-2023 Note HNO ID: [id number] Author: Odni Reyes MD Service: ? Author Type: Physician Type: Progress Notes Filed: 06/19/2023 12:37 PM Note Text: Express Care Triage Note: Patient presents to the [facility] with complaint of sinus pain and shortness of breath. He is a little worse than when seen and treated by Family Medicine 2 days ago. The patient was triaged and determined that he could be further evaluated in the Express Care, but he left before being roomed. [facility] 06-19-2023 History of Present illness Narrative Express Care Triage Note: Patient presents to the [facility] with complaint of sinus pain and shortness of breath. He is a little worse than when seen and treated by Family Medicine 2 days ago. The patient was triaged and determined that he could be further evaluated in the Express Care, but he left before being roomed. documented in this encounter [facility] 06-19-2023 Miscellaneous Notes Patient notified and verbalized understanding Meg Miller Cma Please let patient know his labs show improvement in his hgb a1c and the rest of his labs are stable. documented in this encounter [facility] 06-17-2023 Note HNO ID: [id number] Author: Gamal Mathis APRN.CNP Service: ? Author [...] lumbar 06/30/2016 Multi level, worse L2-L3 Diabetes ([facility]) Diabetic eye exam ([facility]) 03/19/2017 Last done: 10/01/2018 Elevated LFTs 08/05/2015 [...] Date 2D ECHO (EXEP) 01/16/2017 EF=60%, 1+ LA and TI CATARACT EXTRACTION HX Left 10/2019 [...] to affected are (more content not included)... [facility] 05-16-2023 Note HNO ID: [id number] Author: Luis E Agudelo LPN Service: ? Author Type: ? Type: Progress Notes Filed: 05/18/2023 4:03 PM Note Text: Scan on 05/15/2023 9:35 AM by ProviderSonido PA-C: Consultation - Cardiology [facility] 05-16-2023 History of Present illness Narrative Scan on 05/15/2023 9:35 AM by ProviderSonido PA-C: Consultation - Cardiology documented in this encounter [facility] 04-04-2023 Miscellaneous Notes Patient notified.Daniella Whiteside LPN Please notify that testing showed no fungus at 3 days. Will call if becomes positive. documented in this encounter [facility] 04-03-2023 Miscellaneous Notes Pt was notified of the results. Pt verbalized understanding. Hodan Menard MA No fungal growth after 1 day will continue to grow culture and if anything comes back positive we will call patient. documented in this encounter [facility] 04-01-2023 Miscellaneous Notes Last office visit: 11/28/22 [...] advise. Tato Isidro documented in this encounter [facility] 04-01-2023 Note HNO ID: [id number] Author: Blanca Lee PA-C Service: ? Author Type: Physician Shredded Filler Hopper Feeder Type: Progress Notes Filed: 04/01/2023 8:17 AM Note Text: This note was created using [employer]. Subjective iMchael Boss is a 68 year old male. [...] tongue. Has a history of angioedema to [facility]. Not on any PANFILO inhibitors. He did start taking an ptru-rkg-[id number] zinc supplement 3 weeks ago. 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 [facility] 04-01-2023 History of Present illness Narrative This note was created using [employer]. Subjective Michael Boss is a 68 year [...] tongue. [facility] a [facility]. Not on any PANFILO inhibitors. He did start taking an qngz-owu-vkffzpv zinc supplement 3 weeks ago. He had [...] lumbar 06/30/2016 Multi level, worse L2-L3 Diabetes ([facility]) Diabetic eye exam ([facility]) 03/19/2017 Last done: 10/01/2018 Elevated LFTs 08/05/2015 [...] tablet by mouth once daily. Managed by [facility] 30 tablet 11 omega-3 fatty [...] Date 2D ECHO (EXEP) 01/16/2017 EF=60%, 1+ LA and TI CATARACT EXTRACTION HX Left 10/2019 [...] Blanca Lee PA-C documented in this encounter [facility] 03-10-2023 Note HNO ID: [id number] Author: Ute Shine APRN.MISSILE MECHANIC Service: ? Author Type: Nurse Practitioner Type: Progress Notes Filed: 03/10/2023 12:56 PM Note Text: Subjective The history is provided by the patient. No english language learner teacher was used. HPI Michael Boss is a [...] have confirmed and edited as necessary, the [facility] Review of Systems Constitutional: Negative [...] warranting prompt ER evaluation. Ute Shine APRN.CNP [facility] 03-10-2023 Instructions Ute Shine APRN.CNP - 03/10/2023 12:56 PM EDT Start Triamcinolone 0.1% ointment twice daily for itch May use OTC benadryl or zyrtec as needed for itching Keep rash clean and dry. Allow to dry out. documented in this encounter [facility] 03-10-2023 History of Present illness Narrative Images from the original note were not included. Subjective The history is provided by the patient. No english language learner teacher was used. HPI Michael Boss is a [...] have confirmed and edited as necessary, the [facility] Review of Systems Constitutional: Negative [...] detail warranting prompt ER evaluation. Ute Shine APRN.MISSILE MECHANIC documented in this encounter [facility] 02-24-2023 Miscellaneous Notes Pt notified of same, verbalizes understanding. Luis E Agudelo LPN Refill sent. Let patient know that his previous requests never were routed to us correctly. We apologize. Please let pt know when refilled. Last refill listed as historical med [facility] 11/28/22 NOV 06/04/23 Luis E Agudelo LPN documented in this encounter [facility] 02-17-2023 Note HNO ID: [id number] Author: Nadir Alves APRN.MISSILE MECHANIC Service: ? Author Type: Nurse Practitioner Type: [...] 08/04/[address] Duque Chronic sinusitis Claudication ([facility]) 06/04/2017 PVR's normal. Coronary atherosclerosis due to lipid rich plaque 01/20/[address] Kern. s/p RODDY to Ramus and RODDY to LAD placed 01/20/2017. COVID-19 virus infection 06/18/202106/2021 DDD (degenerative disc disease), cervical 01/20/2012 DDD (degenerative disc disease), lumbar 06/30/2016 Multi level, worse L2-L3 Diabetes ([facility]) Diabetic eye exam ([facility]) 03/19/2017 Last done: 10/01/2018 Elevated LFTs 08/05/2015 [...] Date 2D ECHO (EXEP) 01/16/2017 EF=60%, 1+ LA and TI CATARACT EXTRACTION HX Left 10/2019 [...] before meal. Blood-Glucose (more content not included)... [facility] 02-04-2023 Miscellaneous Notes This is being handled in another telephone call. See other message regarding this. Closing this note. Lisa Rabago Patient came in to refill lorazepam. Unable to refill please review and advise patient regarding prescription. Patient came in wanting to refill Lorazepam $ documented in this encounter [facility] 01-17-2023 Note HNO ID: [id number] Author: Alayna Urrutia MA Service: ? Author Type: Bulb Packer Type: Progress Notes Filed: 01/20/2023 12:18 PM Note Text: Scan on 01/16/2023 4:10 PM by External Provider, PA-C: CT Scan Scan on 01/16/2023 4:11 PM by External Provider, PA-C: CT Scan Scan on 01/16/2023 8:47 PM by External Provider, PA-C: Consultation - Emergency Medicine Alayna Urrutia MA [facility] 01-16-2023 Note HNO ID: [id number] Author: Miladys Butt APRN.MISSILE MECHANIC Service: ? Author Type: Nurse Practitioner Type: [...] elects to go to ER. Miladys Butt APRN.MISSILE MECHANIC [facility] 01-07-2023 Miscellaneous Notes Last refill Actos [...] advise. JASE Jin documented in this encounter [facility] 11-29-2022 Miscellaneous Notes The following approved medication requests have been transmitted electronically. Requested Prescriptions Signed Prescriptions Disp Refills pioglitazone (ACTOS) 45 mg tablet 90 tablet 1 Sig: Take 1 tablet by mouth once daily. Authorizing Provider: MARTHA BOSTON PA-C TC to patient who verbalizes understanding of providers message. Patient agreeable to increasing Actos to 45mg. Prefers [facility] in [place]. Please advise. Thank you. CALLIE Rodriguez Let patient know that his a1c is 7.7%. I would like to see this under 7.5%. is he willing to increase actos to 45mg? His cholesterol was normal. PSA level is a little elevated. Recheck in 1 month. Blood counts are stable. documented in this encounter [facility] 11-28-2022 Note HNO ID: [id number] Author: Martha Boston PA-C Service: ? Author Type: Physician Shredded Filler Hopper Feeder Type: Progress Notes Filed: 11/28/2022 2:29 PM [...] worse L2-L3 Diabetes ([facility]) Diabetic eye exam ([facility]) 03/19/2017 Last done: 10/01/2018 Elevated LFTs 08/05/2015 [...] Date 2D ECHO (EXEP) 01/16/2017 EF=60%, 1+ LA and TI CATARACT EXTRACTION HX Left 10/2019 [...] than 30 secon (more content not included)... [facility] 11-28-2022 History of Present illness Narrative [...] Date 2D ECHO (EXEP) 01/16/2017 EF=60%, 1+ LA and TI CATARACT EXTRACTION HX Left 10/2019 [...] dysplasia, repeat in 2 years EGD W/O [facility] SPEC VARICIES INJ 10/14/2022 FECAL OCCULT BLOOD [...] Date 2D ECHO (EXEP) 01/16/2017 EF=60%, 1+ LA and TI CATARACT EXTRACTION HX Left 10/2019 [...] tablet by mouth once daily. Managed by [facility] omega-3 fatty acids 1,000 mg [...] which included preparing to see the patient, [id number] patient care, completing clinical documentation, obtaining and/or reviewing separately obtained history, performing a medically appropriate examination, counseling and educating the patient/family/caregiver, ordering medications, tests, or procedures, communicating with other HCPs (not separately reported), and communicating results to the patient/family/caregiver. documented in this encounter [facility] 11-21-2022 Note HNO ID: [id number] Author: Jenna Jim APRN.MIGEL Service: ? Author Type: Nurse Practitioner Type: Progress Notes Filed: 11/21/2022 10:34 AM Note Text: [facility] [place] Follow-up Visit Follow-up note November 21, 2022 [...] chronic 10/16/2015 Neuropath (more content not included)... [facility] 11-21-2022 Instructions Jenna Jim APRN.MISSILE MECHANIC - 11/21/2022 10:11 AM EDT Gabapentin Week one: 300mg in morning and 600mg at night Week two : 300mg twice daily Week three: 300mg once daily Week four: 300mg every other day Week five: stop medication *If at any point during taper pain should worsen, stop tapering schedule and continue current dose (at that time) of gabapentin. documented in this encounter [facility] 11-21-2022 History of Present illness Narrative Images from the original note were not included. [facility] [place] Follow-up Visit Follow-up note November 21, 2022 [...] worse L2-L3 Diabetes ([facility]CC) Diabetic eye exam ([facility]) 03/19/2017 Last done: 10/01/2018 Elevated LFTs 08/05/2015 [...] Date 2D ECHO (EXEP) 01/16/2017 EF=60%, 1+ LA and TI CATARACT EXTRACTION HX Left 10/2019 [...] dysplasia, repeat in 2 years EGD W/O [facility] SPEC VARICIES INJ 10/14/2022 FECAL OCCULT BLOOD [...] DATE OF EXAM: Apr 05 2022 2:00PM [facility] 0504 - CT BRAIN WO [...] base and imaged soft tissues are unremarkable. Trimming Cutter Machine (topogram) images: No acute findings Impression: IMPRESSION: No significant change. No acute intracranial process Director Sales And Marketing: FAWN Transcribe Date/Time: Apr 05 2022 2:06P [...] which included preparing to see the patient, [id number] patient care, completing clinical documentation, obtaining and/or reviewing separately obtained history, performing a medically appropriate examination, counseling and educating the patient/family/caregiver, and ordering medications, tests, or procedures. documented in this encounter [facility] 11-14-[address] consult for [facility] [employer] [facility].. In provider review of patient appointment, patient needs to be re-scheduled with the [facility]. Pt has been seen by three general neurologists and due to the overall concerns, provider believes [facility] will be more beneficial to patient. TC to patient who is advised of the above and is agreeable to see [facility]. Please contact patient and assist with scheduling with [facility] [employer] [facility]. Thank you. CALLIE Rodriguez documented in this encounter [facility] 11-12-2022 Note HNO ID: [id number] Author: Fer Merrill APRN.CNP Service: ? Author Type: Nurse Practitioner [...] Date 2D ECHO (EXEP) 01/16/2017 EF=60%, 1+ LA and TI CATARACT EXTRACTION HX Left 10/2019 [...] once daily. M (more content not included)... [facility] 11-12-2022 History of Present illness Narrative [...] Date 2D ECHO (EXEP) 01/16/2017 EF=60%, 1+ LA and TI CATARACT EXTRACTION HX Left 10/2019 [...] tablet by mouth once daily. Managed by [facility] omega-3 fatty acids 1,000 mg [...] TABLETS IN A DOSE PACK Fer Merrill APRN.MISSILE MECHANIC documented in this encounter [facility] 11-05-2022 Miscellaneous Notes Last Office Visit: 10/24/2022 Future Office Visit: 11/19/2022 Requested Prescriptions Pending Prescriptions Disp Refills ferrous sulfate 325 mg (65 mg iron) tablet 60 tablet 1 Sig: Take 1 tablet by mouth twice daily with meals. Date of Last Labs: 08/21/2022 documented in this encounter [facility] 10-29-2022 Note HNO ID: [id number] Author: Jennifer Pavon PA-C Service: ? Author Type: Physician Shredded Filler Hopper Feeder Type: Progress Notes Filed: 11/05/2022 2:55 PM Note Text: FOLLOW UP VISIT - ENDOSCOPY NAME: Michael Pagan [facility] NO.: [id number] DATE OF SERVICE: 10/29/2022 : 1955 REFERRING [...] in one cassette. Gross examination performed at [facility], [facility] [place] [address] 10/14/2022 8:25 PM Performing Lab Diagnostic interpretation performed at [facility], [address], [facility] [address] [facility]# [id number] Host And Hostess: Olayinka Paz M.D. Addendum Addendum is issued [...] which included preparing to see the patient, [id number] patient care, completing clinical documentation, obtaining and/or reviewing separately obtained history, counseling and educating the patient/family/caregiver, independently interpreting results (not separately reported), and communicating results to the patient/family/caregiver. Jennifer Pavon PA-C [facility] 10-29-2022 Instructions Jennifer Pavon PA-C - 10/29/2022 4:38 PM EST -Continue PPI long-term -Repeat EGD in 2 years for surveillance The following instructions are important for you related to your office visit today with the [facility] General Surgeons. INSTRUCTIONS FOLLOWING A NORMAL COLONOSCOPY [...] you should contact our office immediately @ [phone] and ask to be transferred to the General Surgery department. documented in this encounter [facility] 10-29-2022 History of Present illness Narrative FOLLOW UP VISIT - ENDOSCOPY NAME: Michael Pagan [facility] NO.: [id number] DATE OF SERVICE: 10/29/2022 : 1955 REFERRING [...] in one cassette. Gross examination performed at [facility], [address] [place] [address] 10/14/2022 8:25 PM Performing Lab Diagnostic interpretation performed at [facility] [address] [facility] [address] CLIA# [id number] Host And Hostess: Olayinka Paz M.D. Addendum Addendum is issued [...] which included preparing to see the patient, [id number] patient care, completing clinical documentation, obtaining and/or reviewing separately obtained history, counseling and educating the patient/family/caregiver, independently interpreting results (not separately reported), and communicating results to the patient/family/caregiver. Jennifer Pavon PA-C documented in this encounter [facility] 10-23-2022 Note HNO ID: [id number] Author: Alayna Urrutia MA Service: ? Author Type: Bulb Packer Type: Progress Notes Filed: 10/24/2022 8:47 AM Note Text: Scan on 10/23/2022 10:26 AM by External Provider: Consultation - Cardiology Please review. lAayna Urrutia MA [facility] 10-23-2022 History of Present illness Narrative Scan on 10/23/2022 10:26 AM by External Provider: Consultation - Cardiology Please review. Alayna Urrutia MA documented in this encounter [facility] 10-14-2022 History and physical note Images from the original note were not included. HISTORY AND PHYSICAL Michael Pagan Karyn 1955 REFERRING PHYSICIAN: Martha Boston PA-C CHIEF [...] lumbar 06/30/2016 Multi level, worse L2-L3 Diabetes ([facility]) Diabetic eye exam ([facility]) 03/19/2017 Last done: 10/01/2018 Elevated LFTs 08/05/2015 [...] Date 2D ECHO (EXEP) 01/16/2017 EF=60%, 1+ LA and TI CATARACT EXTRACTION HX Left 10/2019 [...] tablet by mouth once daily. Managed by [facility] omega-3 fatty acids 1,000 mg [...] entered by the nurse and reviewed by or Nursing Notes: Shiela Thacker LPN 06/27/2022 9:31 [...] last Mammogram screening? N/A Last Colonoscopy: none Sihela Thacker LPN PHYSICAL EXAMINATION: General: The patient [...] Thai Santiago MD documented in this encounter [facility] 10-05-2022 History of Present illness Narrative Chief [...] per cardio his FBS have ranged 130's-160. [place] hrs post meals have been in the [...] Date 2D ECHO (EXEP) 01/16/2017 EF=60%, 1+ LA and TI CATARACT EXTRACTION HX Left 10/2019 [...] tablet by mouth once daily. Managed by [facility] omega-3 fatty acids 1,000 mg cap Take [...] f/u in November. Sooner is issues. Nadir rGady MD documented in this encounter [facility] 10-02-2022 Miscellaneous Notes The following approved medication requests have been transmitted electronically. Requested Prescriptions Signed Prescriptions Disp Refills pioglitazone (ACTOS) 30 mg tablet 90 tablet 1 Sig: Take 1 tablet by mouth once daily. Authorizing Provider: NADIR GRADY MD [facility] reports she informed patient and sister, patient [...] to DDM. Pended. documented in this encounter [facility] 09-24-2022 Miscellaneous Notes Jaspal Clayton-[facility] CCN called and is notified of providers [...] appt in a month. Jaspal Clayton with [facility] calls to report they take care of setting up pt's meds. Today pt reported to Jaspal that Actos was stopped. Jaspal is asking pcp if medication has been discontinued and if there is documentation concerning this could it please be faxed to: [phone]. Can call Jaspal @ [phone]. Actos is currently on pt's med chart. Aaliyah Horner LPN documented in this encounter [facility] 09-23-2022 Instructions Jenna Jim APRN.MIGEL - 09/23/2022 [...] and better stamina. documented in this encounter [facility] 09-23-2022 Instructions Miladys Butt APRN.CNP - 09/23/2022 2:26 PM EST ASSESSMENT/PLAN: 1. Foot injury, left, initial encounter - ICD9: 959.7, ICD10: S99.922A - XR FOOT GENERAL 3V AP/LAT/OBL LEFT Radiologist IMPRESSION: No radiographic evidence of acute osseous injury. Director Sales And Marketing: FAWN Transcribe Date/Time: Sep 23 2022 1:46P [...] Miladys Butt APRN.CNP documented in this encounter [facility] 09-23-2022 History of Present illness Narrative Images [...] Date 2D ECHO (EXEP) 01/16/2017 EF=60%, 1+ LA and TI CATARACT EXTRACTION HX Left 10/2019 [...] tablet by mouth once daily. Managed by [facility] omega-3 fatty acids 1,000 mg [...] No radiographic evidence of acute osseous injury. Director Sales And Marketing: FAWN Transcribe Date/Time: Sep 23 2022 1:46P Dictated by : PHYLLIS TORRES MD - Follow-up with your PCP in 3-5 days if symptoms have not improved or sooner if symptoms worsen - Discussed red flags and need for immediate medical evaluation if any occur. - Discussed supportive care treatment with fluids, rest and analgesia. - Discussed expected course of illness Miladys Butt APRN.MIGEL documented in this encounter [facility] 09-19-2022 History of Present illness Narrative Images from the original note were not included. 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 Previously noted to have low blood pressure [...] as well. Saw neurology earlier today at [facility]. Per [facility] Dr. العلي at [...] of multiple head injury. Saw neurology is [facility] - orthostatic - med SE, no overt [...] Balaji Gagnon CNP on 04/25/22: IMPRESSION/PLAN: Michael Boss is a [...] would be difficulty to go to our [place] location to complete. Medications can also be [...] muscles. States he did pass out in religious four weeks ago. Tremors intermittently in hands. [...] worse L2-L3 Diabetes (HCC) Diabetic eye exam ([facility]) 03/19/2017 Last done: 10/01/2018 Elevated LFTs 08/05/2015 [...] Date 2D ECHO (EXEP) 01/16/2017 EF=60%, 1+ LA and TI CATARACT EXTRACTION HX Left 10/2019 [...] tablet by mouth once daily. Managed by [facility] omega-3 fatty acids 1,000 mg [...] DATE OF EXAM: Apr 05 2022 2:00PM [facility] 0504 - CT BRAIN WO [...] base and imaged soft tissues are unremarkable. Trimming Cutter Machine (topogram) images: No acute findings Impression: IMPRESSION: No significant change. No acute intracranial process Director Sales And Marketing: FAWN Transcribe Date/Time: Apr 05 2022 2:06P [...] prior to starting new medication. Jenna Jim APRN.MISSILE MECHANIC I spent a total of 50+ minutes on the date of the service which included preparing to see the patient, rlug-wv-proe patient care, completing clinical documentation, obtaining and/or reviewing separately obtained history, performing a medically appropriate examination, counseling and educating the patient/family/caregiver, ordering medications, tests, or procedures, and communicating with other HCPs (not separately reported). documented in this encounter [facility] 09-05-2022 Miscellaneous Notes Pt called and is notified of providers message and instructions. Pt voices understanding. 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 August 28 Jaspal SAHNI from [facility] calls to report that patient had taken [...] is not why? With Good Rx at [facility] this should of been less than $8. [...] to sleep because it makes him tired. -09-23 77/53 P81 84/51 P85 84/52 P 5 -10-24 94/44 P73 81/49 P84 none 09-03-22 91/54 P75 112/56 P 81 86/51 P77 09-04-22 108/72 P71 56/39 P90 106/69 P75 Please advise pt. Selma Echevarria LPN documented in this encounter [facility] 08-30-2022 Miscellaneous Notes Patient has been identified [...] advise. Liza Hood documented in this encounter [facility] 08-28-2022 Miscellaneous Notes Noted. Jaspal SAHNI from [facility] calls to report that patient had taken pseudoephedrine and patient became dizzy, couldn't stand, and couldn't stay awake. Patient has not taken this medication anymore. Patient also requested office visit notes to be faxed to [phone]. Faxed as requested. Beverly Rawls RN documented in this encounter [facility] 08-22-2022 Miscellaneous Notes Noted. Spoke with Michael and gave Dr. Grady recommendations. He said he would think about it and let us know. I patient I would send the name of the medication via [facility]. Alayna Urrutia MA Let Michael know I did some looking into alternate treatments for esophageal spasms. There is a med called hyoscyamine that he would take three times a day and it will not affect BP. If interested I will send in script to [facility]. documented in this encounter [facility] 08-22-2022 Miscellaneous Notes TC to patient, POA answered and took detailed message for patient. Verbalized understanding with no questions at this time. CALLIE Rodriguez Let patient know iron levels are better and hemoglobin is almost back to normal. Cont the iron medication. documented in this encounter [facility] 08-21-2022 Instructions Nadir Grady MD - 08/21/2022 [...] be below 180. documented in this encounter [facility] 08-21-2022 History of Present illness Narrative Chief [...] will be seeing Neurology in September in [place] for eval also. Patient's BS's have been [...] Date 2D ECHO (EXEP) 01/16/2017 EF=60%, 1+ LA and TI CATARACT EXTRACTION HX Left 10/2019 [...] 2 DM - Uncontrolled E11. Insulin: No blood sugar diagnostic (BLOOD GLUCOSE TEST) test strip Test blood sugar(s) 2 times daily. Dx: Type 2 DM - Uncontrolled . Insulin: No fluticasone (FLONASE) 50 mcg/actuation nasal [...] tablet by mouth once daily. Managed by [facility] omega-3 fatty acids 1,000 mg [...] which included preparing to see the patient, [id number]-xx-rgkc patient care, completing clinical documentation, performing a medically appropriate examination, counseling and educating the patient/family/caregiver and ordering medications, tests, or procedures. Nadir Grady MD documented in this encounter [facility] 08-07-2022 Miscellaneous Notes The following approved medication [...] pharmacy. No need to notify patient. Veena Lees Pss documented in this encounter [facility] 08-05-2022 Nurse Note AMBULATORY CYSTOSCOPY PROCEDURE PREOPERATIVE/PROCEDURAL [...] Keith Rawls Ma documented in this encounter [facility] 08-05-2022 History of Present illness Narrative [facility] [place] CYSTOSCOPY PROCEDURE NOTE: Michael Boss is a 67 year old male who presents with BPH for cystoscopy. 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 Alayna Urrutia MA Pt's POA Frida called in for an appt. Frida had hung up phone while appt was being scheduled with Gamal Mathis CNP for 07/30 @ 9:00 am. Appt was taken by another it compliance manager. Message left on Frida's vm to call back to reschedule appt. Aaliyah Horner LPN documented in this encounter [facility] 07-12-2022 Miscellaneous Notes Called patient's POA and she confirmed the appointment on 08/05 documented in this encounter [facility] 07-11-2022 Miscellaneous Notes Patient notified and voiced understanding. Alayna Urrutia MA Let patient know that his renal function is normal. Okay to restart metformin. Also his iron levels and blood counts are improving. Continue the iron supplement. Martha Boston PA-C documented in this encounter [facility] 07-10-2022 Miscellaneous Notes Noted. agree Martha, please see below FYI. Luis E Agudelo LPN Spoke with Branden Vick's nurse about scheduling the patient for a consultation. She reported the patient will need to speak with an MD in urology for the procedure that he is being referred for. I relayed the information to the patient's POA. I attempted to contact [facility] but had to leave a VM of the patient's information and request for appointment. The patient's POA understood that a VM had been left and that [facility] scheduling will reach out. She was provided the phone number to [facility]. documented in this encounter [facility] 07-10-2022 Miscellaneous Notes Patient notified of results and provider's instructions. Patient verbalizes understanding. Also called EC Frida per pt's request to review results and instructions. Pt had wanted her to schedule Urology appointment for him. Reviewed results and instructions with Frida, she verbalizes understanding. She was transferred to schedule Urology appointment. Copy of CT scan faxed with FYI to [facility]. Luis E Agudelo LPN Let patient know that CT abd scan shows mild bladder wall thickening which is of uncertain nature and I would like him to see urology for this. CT shows coronary artery calcifications. Will just forward result to his cardiology ([facility]) as a FYI only. Given that he recently had a heart cath, not much more that they will likely recommend. Martha Boston PA-C documented in this encounter [facility] 07-09-2022 History of Present illness Narrative Radiology [...] TIME: 12:12 PM documented in this encounter [facility] 07-05-2022 Miscellaneous Notes Spoke with pt and reviewed Martha's message. Pt verbalizes understanding. Luis E Agudelo LPN Let patient know that this was prescribed for short term use only. I did not have plans to keep him on this daily or termite control representative. This was discussed with him. 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 I plan to use [facility] bowel preparation for endoscopy I plan for monitored anesthetic care. Diagnoses: (D64.9) Anemia, unspecified type My findings have been communicated to Boston via shared medical record. This note will be forwarded to Nadir Grady MD. Return to Clinic: The patient is instructed to follow-up with me after the testing has been completed. Thai Santiago MD documented in this encounter [facility] 07-01-2022 History of Present illness Narrative Radiology [...] 2022 9:02 AM documented in this encounter [facility] 06-27-2022 Miscellaneous Notes Spoke with pt and advised of Martha's message and instructions. Pt verbalizes understanding. Pt also aware this nurse had given this message to Frida as well. Luis E Agudelo LPN Advised pt's mjraxz-ne-szi Frida of Martha's message and instructions. She [...] Martha Boston PA-C documented in this encounter [facility] 06-27-2022 Instructions Thai Santiago MD - 06/27/2022 [...] If you do not have a responsible sales warehouse driver (family member or friend) with you [...] at your local pharmacy or drugstore pharmacy. 1 08/2019 Bowel Preparation Instructions for: Golytely, Nulytely, [...] midnight. 2 08/2019 documented in this encounter [facility] 06-27-2022 Nurse Note REVIEW OF SYSTEMS: General: [...] Shiela Thacker LPN documented in this encounter [facility] 06-26-2022 Miscellaneous Notes Pt called and is [...] glucometer, lancets & test strips to [facility], pending. Beulah Wright LPN Looking at med list it seems like he has not had a new glucose meter in 5 years. See if he is ok with us sending in scripts for new meter, lancets and test strips? Noted. When is next time [facility] coming out to check? Martha Boston PA-C The following approved medication requests have been transmitted electronically. Requested Prescriptions Signed Prescriptions Disp Refills glimepiride (AMARYL) 2 mg tablet 30 tablet 5 Sig: Take 1 tablet by mouth daily with breakfast. Authorizing Provider: MARTHA BOSTON PA-C Jennifer at [facility] was called and given providers information. She requested last OV notes be faxed over for Dr Kern to see. She states they will call back once he has looked at them and made any decisions. Faxed last OV note to [phone]. Pt called and is notified of providers [...] in and get labs done. Will call [facility]. Jennifer Blue RN Let patient know that [...] these readings down? Also can you contact [facility] and let them know we saw patient yesterday and his BP was 80/50. We are working up anemia and adjusting diabetic management, but didn't know if they wanted to address the low blood pressure and make medication change. Martha Boston PA-C documented in this encounter [facility] 06-25-2022 Miscellaneous Notes Jaspal with [facility] called for office visit from today 06-25-22 apt with CAMELIA Candelario. Identified pt with name and date of . Faxed copy to [phone]. Done. Selma Echevarria LPN documented in this encounter [facility] 06-25-2022 Instructions Martha Boston PA-C - 06/25/2022 8:10 AM EDT Make an appointment with cardiology to discuss your blood pressures. documented in this encounter [facility] 06-25-2022 History of Present illness Narrative Chief [...] Date 2D ECHO (EXEP) 01/16/2017 EF=60%, 1+ LA and TI CATARACT EXTRACTION HX Left 10/2019 [...] tablet by mouth once daily. Managed by [facility] omega-3 fatty acids 1,000 mg [...] B12 BLOOD - VITAMIN D 25 HYDROXY Mratha Boston PA-C documented in this encounter [facility] 06-20-2022 Miscellaneous Notes Jaspal Odonnell LPN returned [...] his plavix and lipitor come from the [facility] and will need to contact [...] is now getting his prescriptions through [facility]. Asking for prescriptions to be sent there. Patient's blood sugar is 245 today. Please review and advise, Beverly Rawls RN Let jaspal know I want to increase his actos to 30 mg a day. Is he still getting meds packaged from [facility] or did he change pharmacies. Jaspal ANTHONYN [facility] reports they have the [facility] and they were called in a blood sugar on the Pt of 447. She states the Pt reports he has only had a milk so far this morning. Pt takes Actos daily and Metformin twice a day. Pt is asymptomatic. Jaspal SAHNI told Pt to start drinking lots of water. Please call and advise. 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 Headaches worsening and requesting advisement. Thank you, Michelle Oakes documented in this encounter [facility] 05-29-2022 Miscellaneous Notes Received fax from [facility] requesting pt's last A1c as pt is in there program. Last A1c faxed to [phone] as requested. Luis E Agudelo LPN documented in this encounter [facility] 05-28-2022 History of Present illness Narrative Called [...] Referred to ED documented in this encounter [facility] 05-28-2022 Miscellaneous Notes Noted. Call placed to [...] would have to be responsible to notify [facility] of no longer needing services and would need to let provider's office know when he is in need of prescriptions through [facility]. Jaspal verbalizes understanding and plans to contact [...] Also we just got a call from [facility] asking us to send the Actos script to them yesterday ??? Not sure how they know it went to [facility] (which is what the patient wanted) but since the person who responded to the message was not aware he was not wanting things at [facility] it got sent there. So if he is not going to use [facility] then he needs to let them know and then update use when he wants meds sent to [facility]. However I think this is a bad idea since he can not read. Jaspal Clayton with [facility] calls to update provider on patient. Jaspal reports that patient has stopped taking sertraline and amantadine d/t possible side effect of dizziness. She reports that he is removing the pills from his pill packs supplied by [facility] but patient isn't able to read so she is not certain how he is actually identifying the correct pills to remove. Patient reported to Jaspal that he is no longer going to receive medication pill packs from [facility] and wants [facility] nurse to fill weekly for patient. [...] Kern. Jaspal requesting a call back at [phone] if provider wants any changes or any response to the above. Please review and advise, Nury Jo RN documented in this encounter [facility] 05-24-2022 Miscellaneous Notes Patient notified. Alayna Urrutia MA Let patient know Actos sent to [facility] for 90 days. The following approved medication requests have been transmitted electronically. Requested Prescriptions Signed Prescriptions Disp Refills pioglitazone (ACTOS) 15 mg tablet 90 tablet 1 Sig: Take 1 tablet by mouth once daily. Authorizing Provider: NADIR GRADY MD Patient called, he would like prescription sent to [facility] [place] today. Did contact Frida and she indicated that she did speak with Michael and she is ok with medication being sent to [facility] but would need some system for Michael. Was talking to Frida about sending the medication for Actos now to [facility] and our phone . Alayna Urrutia MA Spoke with Jaspal and gave her PCP instructions. Also spoke with patient and he would like for this medication to go to [facility]. In fact he would like all of this medication to go to [facility]. I will contact Jaspal to let her know. Alayna Urrutia MA Let Jaspal with [facility] know his Januvia is most likely the most expensive. Looking at his med sheet from [facility] the next two most costly are his [...] for review. Alayna Urrutia MA Jaspal with [facility] had called in and reported [...] concern actually is. Martha Boston PA-C Frida Nisha, relative of pt called and states pt's [...] will contact them. Pt was seen in [facility] 05-14-22 and dx with ANA. Pt not able to do virtual apts. Please review and instruct Frida. Willing to bring in for an apt. Let Frida know. Pt's pharmacy is [facility] and gets pre packed sheets. Selma Echevarria LPN documented in this encounter [facility] 05-15-2022 Miscellaneous Notes The following approved medication [...] of labs wnl. documented in this encounter [facility] 05-13-2022 Instructions Martha Boston PA-C - 05/13/2022 8:09 AM EDT Please complete labs today. We have increased zoloft to 50mg. Follow up in 6 weeks for recheck on the increase of zoloft. Follow up in 6 months medicare wellness exam. Make sure to schedule your eye exam documented in this encounter [facility] 05-13-2022 History of Present illness Narrative Chief [...] worse L2-L3 Diabetes (HCC) Diabetic eye exam ([facility]) 03/19/2017 Last done: 10/01/2018 Elevated LFTs 08/05/2015 [...] Date 2D ECHO (EXEP) 01/16/2017 EF=60%, 1+ LA and TI CATARACT EXTRACTION HX Left 10/2019 [...] -- Dr. Llanes PAST SURGICAL HISTORY OF 2009 torn cartilage -- arthroscopy, left knee PAST [...] tablet by mouth once daily. Managed by [facility] omega-3 fatty acids 1,000 mg [...] Martha Boston PA-C documented in this encounter [facility] 05-03-2022 Miscellaneous Notes Patient has been identified [...] Abdirahman Duong RN documented in this encounter [facility] 05-02-2022 Miscellaneous Notes Noted. Jaspal Odonnell LPN from [facility] called and is notified of providers message. [...] neurologist or the Ranexa or Midodrine per [facility] Jaspal Odonnlel LPN from [facility] calling patient is complaining of his mouth burning if he eats any pickles or ketchup. He eats a lot of potato chips for the salt, that does not bother him. Patient has no open sores in his mouth at all. Asking if any of his medications may be causing this? Please advise documented in this encounter [facility] 04-30-2022 Miscellaneous Notes Jaspal advised of Dr [...] and I will address. Jaspal SAHNI from [facility] calling to check status of note. Office notes from 04/25 visit with Neuro says to discuss with Dr Grady to discontinue Amitriptyline. Jaspal has appt with patient at 10 am today, she is asking for weaning instructions please. Please advise Will forward note regarding tapering of amitriptyline to Neuro. Med list updated. Jaspal SAHNI from [facility] calls to report that patient had seen [...] Beverly Rawls RN documented in this encounter [facility] 04-27-2022 Miscellaneous Notes Please see pt's update. Luis E Agudelo LPN documented in this encounter [facility] 04-25-2022 Instructions Rin Gagnon APRN.MISSILE MECHANIC - 04/25/2022 2:35 PM EDT Ortostatic Hypotension. [...] or stationery bicycling. documented in this encounter [facility] 04-25-2022 History of Present illness Narrative Images from the original note were not included. [facility] for General Neurology New Patient Evaluation Michael [...] syncope. He was leaving his sister in [facility] house and lost consciousness while walking. He [...] Date Autonomic Reflex Tilt QSART Skin Biopsy Door Paneler Echo EEG Labs: SPEP- normal, HGBA1C 7.1, [...] tablet by mouth once daily. Managed by [facility] omega-3 fatty acids 1,000 mg [...] worse L2-L3 Diabetes (HCC) Diabetic eye exam ([facility]) 03/19/2017 Last done: 10/01/2018 Elevated LFTs 08/05/2015 [...] Date 2D ECHO (EXEP) 01/16/2017 EF=60%, 1+ LA and TI CATARACT EXTRACTION HX Left 10/2019 [...] 5/5 Wrist Extension 5/5 5/5 Finger Extension 01/03 01/03 Finger Flexion 01/03 5 Finger Abduction 01/03 01/03 Hip Flexion 01/03 01/03 Hip Adduction 01/03 01/03 Hip Abduction 01/03 01/03 Knee Flexion 01/03 01/03 Knee Extension 01/03 01/03 Ankle Dorsiflexion 01/03 01/03 Ankle Plantarflexion 01/03 01/03 Ankle Inversion 01/03 01/03 Ankle Eversion 01/03 01/03 Big Toe Extension 01/03 5 Movement/Coordination Finger-to- nose-finger and [id number] intact bilaterally. No evidence of ataxia arms. [...] would be difficulty to go to our [place] location to complete. Medications can also be [...] EMERGENT procedures): No specimen collected. Rin Gagnon APRN.MISSILE MECHANIC I spent a total of 90 minutes on the date of the service which included preparing to see the patient, [id number] patient care, completing clinical documentation, obtaining and/or [...] Eluting Coronary Stent Placement Diabetic Eye Exam ([facility]) Leg Pain, Bilateral Medicare Annual Wellness Visit, Subsequent Gerd Without Esophagitis Neuropathy Primary Insomnia Abnormal Dreams Medication Management Illiteracy Anemia of Chronic Disease History of Covid-19 No orders found for this visit on 04/25/22. Rin Gagnon APRN.CNP General Neurology [address] [place]. [address] Appointment: [phone] 1. This office note has been dictated [...] your PCP/referring physician documented in this encounter [facility] 04-19-2022 History of Present illness Narrative Chief [...] and that's how he was taken to [facility] ER. He himself recently had [...] Date 2D ECHO (EXEP) 01/16/2017 EF=60%, 1+ LA and TI CATARACT EXTRACTION HX Left 10/2019 [...] tablet by mouth once daily. Managed by [facility] omega-3 fatty acids 1,000 mg [...] Martha Boston PA-C documented in this encounter [facility] 04-09-2022 Miscellaneous Notes Frida was notified and will have patient call to schedule ER follow up Rosa Valentino Ma Please advise Frida that we do not have up to date papers listing her as power of traffic law attorney for health care. Also this title does not come into affect unless the patient can not speak for himself. I appreciate the info and would advise that Michael make an appt to be seen for ER follow up for tremors/anxiety. Patient POA calling office regarding patient episode of tremor that led to ER visit at [facility] over the weekend. Patient having increased stress [...] they are not scheduled to see [facility] until 05/09/2022 and therefore are reaching out to . Please advise. Thank you. CALLIE Rodriguez documented in this encounter [facility] 04-03-2022 Miscellaneous Notes The following approved medication [...] Selma Echevarria LPN documented in this encounter [facility] 03-25-2022 Miscellaneous Notes The following approved medication requests have been transmitted electronically. Pending Prescriptions Disp Refills NITROGLYCERIN 0.4 MG SUBLINGUAL TABLET 1 Bottle of 25 1 Sig: Dissolve 1 tablet under the tongue every 5 minutes as needed for chest pain. JOANNA: No Rashawn Hewitt APRN.MIGEL Patient has been identified by name and [...] Barbara Johnson Pss documented in this encounter [facility] 03-20-2022 Miscellaneous Notes Called the patient and relayed the provider's message of CT results. The patient understood the information provided. ----- Message from Jenna Jim APRN.MISSILE MECHANIC sent at 03/19/2022 5:21 PM EDT ----- CT of brain is normal and does not show any evidence of bleed. documented in this encounter [facility] 03-19-2022 History of Present illness Narrative Radiology [...] 2022 3:05 PM documented in this encounter [facility] 03-19-2022 Miscellaneous Notes Addended by: JENNA JIM [...] you. CALLIE Rodriguez documented in this encounter [facility] 02-26-2022 Miscellaneous Notes Patient has been identified by name and date of : Yes Pending Prescriptions Disp Refills ATORVASTATIN 80 MG TABLET 30 tablet 11 Sig: Take 1 tablet by mouth once daily. Managed by cardiology, Dr. Liya MARSHALL: No RX INSTRUCTIONS: Per Pharmacist, she does not have a script from 09/06/21. Please re-submit today. Pharmacy initiated this request. No need to notify patient. Zaira Singh Pss documented in this encounter [facility] 02-22-2022 Miscellaneous Notes Spoke with patient's RANJEET Frida. Discussed consult to autonomic clinic to address orthostatic hypotension prior to initiation of other medications. She is agreeable and states she would be able to drive patient to [place] (she lives in [place]). Consult placed. Will reach out to scheduling [...] may be able to drive him to [place] if that is closest location. Pt asking this provider to call his RANJEET to discuss this with her. Call placed to Frida; pt's RANJEET. No answer and voicemail left. Will attempt to contact again tomorrow. Cardiac testing done at [facility] has been scanned. 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 Previously noted to have low blood pressure [...] to follow with pain management as well. Frida/[id number]/POA is calling, has not heard back from the office on the next step would be. Please advise. Symone العلي LPN documented in this encounter [facility] 02-07-2022 History of Present illness Narrative Images from the original note were not included. [facility] [place] New Patient visit New Patient Consultation February [...] Per Dr. Grady 10/25/21: Patient went to [facility] on 10/16/2021 after having 2 syncopal episodes [...] dizzy before each episode. Patient went to [place] ER 10/16/2021 and BP then was 117/75, [...] Date 2D ECHO (EXEP) 01/16/2017 EF=60%, 1+ LA and TI CATARACT EXTRACTION HX Left 10/2019 [...] OF 1971 appendix PAST SURGICAL HISTORY OF 1979' right foot -- tendon surgery PAST SURGICAL [...] tablet by mouth once daily. 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 Previously noted to have low blood pressure [...] which included preparing to see the patient, [id number] patient care, completing clinical documentation, obtaining and/or reviewing separately obtained history, performing a medically appropriate examination and counseling and educating the patient/family/caregiver. documented in this encounter [facility] 01-30-2022 Miscellaneous Notes The following approved medication [...] Madhuri Chapa LPN documented in this encounter [facility] 01-24-2022 Miscellaneous Notes Tian with [facility] called and requesting copy of last OV for pt. Pt was identified by name and date of . Faxed to [phone]. Selma Echevarria LPN documented in this encounter [facility] 01-04-2022 History of Present illness Narrative Scan on 01/04/2022 9:59 AM by External Provider: Consultation - Cardiology documented in this encounter [facility] 12-13-2021 Miscellaneous Notes PharmJevon spoke with Frida. [...] if needs additional assistance. Karen Piper PharmD, [facility] Primary Care Clinical Pharmacist Rhea HARRIS [facility] PharmJevon called Frida but unable to reach, LEFT MESSAGE ON MACHINE to return call to office. Karen Piper PharmD, [facility] Primary Care Clinical Pharmacist Rhea HARRIS [facility] [...] Beverly Rawls RN documented in this encounter [facility] 11-22-2021 Miscellaneous Notes Patient notified of results, verbalizes understanding of instructions. Paula Donaldson LPN Let patient know urine and blood protein studies were normal. Bleeding studies were normal. BMP was ok except for elevated blood sugar. 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 If chest symptoms persist follow-up with PCP or igniter assembler. Medications sent to [facility] in [place]. Thanks, Ade Garcia APRN.MISSILE MECHANIC documented in this encounter [facility] documented as of this encounter (statuses as of 12/03/2021) [facility] History of Past illness Narrative* Problem Noted Date Resolved Date Well adult exam 10/03/2016 04/12/2020 Overview: last done: 07/16/19. does not want colonoscopies. Other physical therapy 08/16/2010 0 Sprain of neck 07/30/2010 08/30/2010 Unspecified pruritic disorder 03/02/2009 Cervicalgia 10/16/2006 10/30/2018 Hyperlipidemia 08/04/2015 documented as of this encounter (statuses as of 12/13/2021) [facility] History of Past illness Narrative* Problem Noted Date Resolved Date Well adult exam 10/03/2016 04/12/2020 Overview: last done: 07/16/19. does not want colonoscopies. Other physical therapy 08/16/2010 0 Sprain of neck 07/30/2010 08/30/2010 Unspecified pruritic disorder 03/02/2009 Cervicalgia 10/16/2006 10/30/2018 Hyperlipidemia 08/04/2015 documented as of this encounter (statuses as of 01/07/2022) [facility] History of Past illness Narrative* Problem Noted Date Resolved Date Well adult exam 10/03/2016 04/12/2020 Overview: last done: 07/16/19. does not want colonoscopies. Other physical therapy 08/16/2010 0 Sprain of neck 07/30/2010 08/30/2010 Unspecified pruritic disorder 03/02/2009 Cervicalgia 10/16/2006 10/30/2018 Hyperlipidemia 08/04/2015 documented as of this encounter (statuses as of 01/24/2022) [facility] History of Past illness Narrative* Problem Noted Date Resolved Date Well adult exam 10/03/2016 04/12/2020 Overview: last done: 07/16/19. does not want colonoscopies. Other physical therapy 08/16/2010 0 Sprain of neck 07/30/2010 08/30/2010 Unspecified pruritic disorder 03/02/2009 Cervicalgia 10/16/2006 10/30/2018 Hyperlipidemia 08/04/2015 documented as of this encounter (statuses as of 01/30/2022) [facility] History of Past illness Narrative* Problem Noted Date Resolved Date Well adult exam 10/03/2016 04/12/2020 Overview: last done: 07/16/19. does not want colonoscopies. Other physical therapy 08/16/2010 0 Sprain of neck 07/30/2010 08/30/2010 Unspecified pruritic disorder 03/02/2009 Cervicalgia 10/16/2006 10/30/2018 Hyperlipidemia 08/04/2015 documented as of this encounter (statuses as of 01/31/2022) [facility] History of Past illness Narrative* Problem Noted Date Resolved Date Well adult exam 10/03/2016 04/12/2020 Overview: last done: 07/16/19. does not want colonoscopies. Other physical therapy 08/16/2010 0 Sprain of neck 07/30/2010 08/30/2010 Unspecified pruritic disorder 03/02/2009 Cervicalgia 10/16/2006 10/30/2018 Hyperlipidemia 08/04/2015 documented as of this encounter (statuses as of 02/11/2022) [facility] History of Past illness Narrative* Problem Noted Date Resolved Date Well adult exam 10/03/2016 04/12/2020 Overview: last done: 07/16/19. does not want colonoscopies. Other physical therapy 08/16/2010 0 Sprain of neck 07/30/2010 08/30/2010 Unspecified pruritic disorder 03/02/2009 Cervicalgia 10/16/2006 10/30/2018 Hyperlipidemia 08/04/2015 documented as of this encounter (statuses as of 02/22/2022) [facility] History of Past illness Narrative* Problem Noted Date Resolved Date Well adult exam 10/03/2016 04/12/2020 Overview: last done: 07/16/19. does not want colonoscopies. Other physical therapy 08/16/2010 0 Sprain of neck 07/30/2010 08/30/2010 Unspecified pruritic disorder 03/02/2009 Cervicalgia 10/16/2006 10/30/2018 Hyperlipidemia 08/04/2015 documented as of this encounter (statuses as of 02/26/2022) [facility] History of Past illness Narrative* Problem Noted Date Resolved Date Well adult exam 10/03/2016 04/12/2020 Overview: last done: 07/16/19. does not want colonoscopies. Other physical therapy 08/16/2010 0 Sprain of neck 07/30/2010 08/30/2010 Unspecified pruritic disorder 03/02/2009 Cervicalgia 10/16/2006 10/30/2018 Hyperlipidemia 08/04/2015 documented as of this encounter (statuses as of 03/19/2022) [address]02-2017 History of Past illness Narrative* Problem Noted Date Resolved Date Well adult exam 10/03/2016 04/12/2020 Overview: last done: 07/16/19. does not want colonoscopies. Other physical therapy 08/16/2010 0 Sprain of neck 07/30/2010 08/30/2010 Unspecified pruritic disorder 03/02/2009 Cervicalgia 10/16/2006 10/30/2018 Hyperlipidemia 08/04/2015 documented as of this encounter (statuses as of 03/20/2022) [facility] History of Past illness Narrative* Problem Noted Date Resolved Date Well adult exam 10/03/2016 04/12/2020 Overview: last done: 07/16/19. does not want colonoscopies. Other physical therapy 08/16/2010 0 Sprain of neck 07/30/2010 08/30/2010 Unspecified pruritic disorder 03/02/2009 Cervicalgia 10/16/2006 10/30/2018 Hyperlipidemia 08/04/2015 documented as of this encounter (statuses as of 03/20/2022) [facility] History of Past illness Narrative* Problem Noted Date Resolved Date Well adult exam 10/03/2016 04/12/2020 Overview: last done: 07/16/19. does not want colonoscopies. Other physical therapy 08/16/2010 0 Sprain of neck 07/30/2010 08/30/2010 Unspecified pruritic disorder 03/02/2009 Cervicalgia 10/16/2006 10/30/2018 Hyperlipidemia 08/04/2015 documented as of this encounter (statuses as of 03/25/2022) [facility] History of Past illness Narrative* Problem Noted Date Resolved Date Well adult exam 10/03/2016 04/12/2020 Overview: last done: 07/16/19. does not want colonoscopies. Other physical therapy 08/16/2010 0 Sprain of neck 07/30/2010 08/30/2010 Unspecified pruritic disorder 03/02/2009 Cervicalgia 10/16/2006 10/30/2018 Hyperlipidemia 08/04/2015 documented as of this encounter (statuses as of 04/04/2022) [facility] History of Past illness Narrative* Problem Noted Date Resolved Date Well adult exam 10/03/2016 04/12/2020 Overview: last done: 07/16/19. does not want colonoscopies. Other physical therapy 08/16/2010 0 Sprain of neck 07/30/2010 08/30/2010 Unspecified pruritic disorder 03/02/2009 Cervicalgia 10/16/2006 10/30/2018 Hyperlipidemia 08/04/2015 documented as of this encounter (statuses as of 04/09/2022) [facility] History of Past illness Narrative* Problem Noted Date Resolved Date Well adult exam 10/03/2016 04/12/2020 Overview: last done: 07/16/19. does not want colonoscopies. Other physical therapy 08/16/2010 0 Sprain of neck 07/30/2010 08/30/2010 Unspecified pruritic disorder 03/02/2009 Cervicalgia 10/16/2006 10/30/2018 Hyperlipidemia 08/04/2015 documented as of this encounter (statuses as of 04/19/2022) [facility] History of Past illness Narrative* Problem Noted Date Resolved Date Well adult exam 10/03/2016 04/12/2020 Overview: last done: 07/16/19. does not want colonoscopies. Other physical therapy 08/16/2010 0 Sprain of neck 07/30/2010 08/30/2010 Unspecified pruritic disorder 03/02/2009 Cervicalgia 10/16/2006 10/30/2018 Hyperlipidemia 08/04/2015 documented as of this encounter (statuses as of 04/26/2022) [facility] History of Past illness Narrative* Problem Noted Date Resolved Date Well adult exam 10/03/2016 04/12/2020 Overview: last done: 07/16/19. does not want colonoscopies. Other physical therapy 08/16/2010 0 Sprain of neck 07/30/2010 08/30/2010 Unspecified pruritic disorder 03/02/2009 Cervicalgia 10/16/2006 10/30/2018 Hyperlipidemia 08/04/2015 documented as of this encounter (statuses as of 04/28/2022) [facility] History of Past illness Narrative* Problem Noted Date Resolved Date Well adult exam 10/03/2016 04/12/2020 Overview: last done: 07/16/19. does not want colonoscopies. Other physical therapy 08/16/2010 0 Sprain of neck 07/30/2010 08/30/2010 Unspecified pruritic disorder 03/02/2009 Cervicalgia 10/16/2006 10/30/2018 Hyperlipidemia 08/04/2015 documented as of this encounter (statuses as of 04/30/2022) [facility] History of Past illness Narrative* Problem Noted Date Resolved Date Well adult exam 10/03/2016 04/12/2020 Overview: last done: 07/16/19. does not want colonoscopies. Other physical therapy 08/16/2010 0 Sprain of neck 07/30/2010 08/30/2010 Unspecified pruritic disorder 03/02/2009 Cervicalgia 10/16/2006 10/30/2018 Hyperlipidemia 08/04/2015 documented as of this encounter (statuses as of 05/02/2022) [facility] History of Past illness Narrative* Problem Noted Date Resolved Date Well adult exam 10/03/2016 04/12/2020 Overview: last done: 07/16/19. does not want colonoscopies. Other physical therapy 08/16/2010 0 Sprain of neck 07/30/2010 08/30/2010 Unspecified pruritic disorder 03/02/2009 Cervicalgia 10/16/2006 10/30/2018 Hyperlipidemia 08/04/2015 documented as of this encounter (statuses as of 05/03/2022) [facility] History of Past illness Narrative* Problem Noted Date Resolved Date Well adult exam 10/03/2016 04/12/2020 Overview: last done: 07/16/19. does not want colonoscopies. Other physical therapy 08/16/2010 0 Sprain of neck 07/30/2010 08/30/2010 Unspecified pruritic disorder 03/02/2009 Cervicalgia 10/16/2006 10/30/2018 Hyperlipidemia 08/04/2015 documented as of this encounter (statuses as of 05/13/2022) [facility] History of Past illness Narrative* Problem Noted Date Resolved Date Well adult exam 10/03/2016 04/12/2020 Overview: last done: 07/16/19. does not want colonoscopies. Other physical therapy 08/16/2010 0 Sprain of neck 07/30/2010 08/30/2010 Unspecified pruritic disorder 03/02/2009 Cervicalgia 10/16/2006 10/30/2018 Hyperlipidemia 08/04/2015 documented as of this encounter (statuses as of 05/15/2022) [facility] History of Past illness Narrative* Problem Noted Date Resolved Date Well adult exam 10/03/2016 04/12/2020 Overview: last done: 07/16/19. does not want colonoscopies. Other physical therapy 08/16/2010 0 Sprain of neck 07/30/2010 08/30/2010 Unspecified pruritic disorder 03/02/2009 Cervicalgia 10/16/2006 10/30/2018 Hyperlipidemia 08/04/2015 documented as of this encounter (statuses as of 05/25/2022) [facility] History of Past illness Narrative* Problem Noted Date Resolved Date Well adult exam 10/03/2016 04/12/2020 Overview: last done: 07/16/19. does not want colonoscopies. Other physical therapy 08/16/2010 0 Sprain of neck 07/30/2010 08/30/2010 Unspecified pruritic disorder 03/02/2009 Cervicalgia 10/16/2006 10/30/2018 Hyperlipidemia 08/04/2015 documented as of this encounter (statuses as of 05/28/2022) [facility] History of Past illness Narrative* Problem Noted Date Resolved Date Well adult exam 10/03/2016 04/12/2020 Overview: last done: 07/16/19. does not want colonoscopies. Other physical therapy 08/16/2010 0 Sprain of neck 07/30/2010 08/30/2010 Unspecified pruritic disorder 03/02/2009 Cervicalgia 10/16/2006 10/30/2018 Hyperlipidemia 08/04/2015 documented as of this encounter (statuses as of 05/29/2022) [facility]02-2017 History of Past illness Narrative* Problem Noted Date Resolved Date Well adult exam 10/03/2016 04/12/2020 Overview: last done: 07/16/19. does not want colonoscopies. Other physical therapy 08/16/2010 0 Sprain of neck 07/30/2010 08/30/2010 Unspecified pruritic disorder 03/02/2009 Cervicalgia 10/16/2006 10/30/2018 Hyperlipidemia 08/04/2015 documented as of this encounter (statuses as of 05/30/2022) [facility]2017 History of Past illness Narrative* Problem Noted Date Resolved Date Well adult exam 10/03/2016 04/12/2020 Overview: last done: 07/16/19. does not want colonoscopies. Other physical therapy 08/16/2010 0 Sprain of neck 07/30/2010 08/30/2010 Unspecified pruritic disorder 03/02/2009 Cervicalgia 10/16/2006 10/30/2018 Hyperlipidemia 08/04/2015 documented as of this encounter (statuses as of 06/20/2022) [facility]2017 History of Past illness Narrative* Problem Noted Date Resolved Date Well adult exam 10/03/2016 04/12/2020 Overview: last done: 07/16/19. does not want colonoscopies. Other physical therapy 08/16/2010 0 Sprain of neck 07/30/2010 08/30/2010 Unspecified pruritic disorder 03/02/2009 Cervicalgia 10/16/2006 10/30/2018 Hyperlipidemia 08/04/2015 documented as of this encounter (statuses as of 06/25/2022) [facility]2017 History of Past illness Narrative* Problem Noted Date Resolved Date Well adult exam 10/03/2016 04/12/2020 Overview: last done: 07/16/19. does not want colonoscopies. Other physical therapy 08/16/2010 0 Sprain of neck 07/30/2010 08/30/2010 Unspecified pruritic disorder 03/02/2009 Cervicalgia 10/16/2006 10/30/2018 Hyperlipidemia 08/04/2015 documented as of this encounter (statuses as of 06/25/2022) [facility]2017 History of Past illness Narrative* Problem Noted Date Resolved Date Well adult exam 10/03/2016 04/12/2020 Overview: last done: 07/16/19. does not want colonoscopies. Other physical therapy 08/16/2010 0 Sprain of neck 07/30/2010 08/30/2010 Unspecified pruritic disorder 03/02/2009 Cervicalgia 10/16/2006 10/30/2018 Hyperlipidemia 08/04/2015 documented as of this encounter (statuses as of 06/26/2022) [facility]2017 History of Past illness Narrative* Problem Noted Date Resolved Date Well adult exam 10/03/2016 04/12/2020 Overview: last done: 07/16/19. does not want colonoscopies. Other physical therapy 08/16/2010 0 Sprain of neck 07/30/2010 08/30/2010 Unspecified pruritic disorder 03/02/2009 Cervicalgia 10/16/2006 10/30/2018 Hyperlipidemia 08/04/2015 documented as of this encounter (statuses as of 06/27/2022) [facility]2017 History of Past illness Narrative* Problem Noted Date Resolved Date Well adult exam 10/03/2016 04/12/2020 Overview: last done: 07/16/19. does not want colonoscopies. Other physical therapy 08/16/2010 0 Sprain of neck 07/30/2010 08/30/2010 Unspecified pruritic disorder 03/02/2009 Cervicalgia 10/16/2006 10/30/2018 Hyperlipidemia 08/04/2015 documented as of this encounter (statuses as of 07/02/2022) [facility]2017 History of Past illness Narrative* Problem Noted Date Resolved Date Well adult exam 10/03/2016 04/12/2020 Overview: last done: 07/16/19. does not want colonoscopies. Other physical therapy 08/16/2010 0 Sprain of neck 07/30/2010 08/30/2010 Unspecified pruritic disorder 03/02/2009 Cervicalgia 10/16/2006 10/30/2018 Hyperlipidemia 08/04/2015 documented as of this encounter (statuses as of 07/02/2022) [facility]2017 History of Past illness Narrative* Problem Noted Date Resolved Date Well adult exam 10/03/2016 04/12/2020 Overview: last done: 07/16/19. does not want colonoscopies. Other physical therapy 08/16/2010 0 Sprain of neck 07/30/2010 08/30/2010 Unspecified pruritic disorder 03/02/2009 Cervicalgia 10/16/2006 10/30/2018 Hyperlipidemia 08/04/2015 documented as of this encounter (statuses as of 07/05/2022) [address]02-2017 History of Past illness Narrative* Problem Noted Date Resolved Date Well adult exam 10/03/2016 04/12/2020 Overview: last done: 07/16/19. does not want colonoscopies. Other physical therapy 08/16/2010 0 Sprain of neck 07/30/2010 08/30/2010 Unspecified pruritic disorder 03/02/2009 Cervicalgia 10/16/2006 10/30/2018 Hyperlipidemia 08/04/2015 documented as of this encounter (statuses as of 07/10/2022) [facility]2017 History of Past illness Narrative* Problem Noted Date Resolved Date Well adult exam 10/03/2016 04/12/2020 Overview: last done: 07/16/19. does not want colonoscopies. Other physical therapy 08/16/2010 0 Sprain of neck 07/30/2010 08/30/2010 Unspecified pruritic disorder 03/02/2009 Cervicalgia 10/16/2006 10/30/2018 Hyperlipidemia 08/04/2015 documented as of this encounter (statuses as of 07/10/2022) [facility]2017 History of Past illness Narrative* Problem Noted Date Resolved Date Well adult exam 10/03/2016 04/12/2020 Overview: last done: 07/16/19. does not want colonoscopies. Other physical therapy 08/16/2010 0 Sprain of neck 07/30/2010 08/30/2010 Unspecified pruritic disorder 03/02/2009 Cervicalgia 10/16/2006 10/30/2018 Hyperlipidemia 08/04/2015 documented as of this encounter (statuses as of 07/11/2022) [facility]2017 History of Past illness Narrative* Problem Noted Date Resolved Date Well adult exam 10/03/2016 04/12/2020 Overview: last done: 07/16/19. does not want colonoscopies. Other physical therapy 08/16/2010 0 Sprain of neck 07/30/2010 08/30/2010 Unspecified pruritic disorder 03/02/2009 Cervicalgia 10/16/2006 10/30/2018 Hyperlipidemia 08/04/2015 documented as of this encounter (statuses as of 07/12/2022) [facility]2017 History of Past illness Narrative* Problem Noted Date Resolved Date Well adult exam 10/03/2016 04/12/2020 Overview: last done: 07/16/19. does not want colonoscopies. Other physical therapy 08/16/2010 0 Sprain of neck 07/30/2010 08/30/2010 Unspecified pruritic disorder 03/02/2009 Cervicalgia 10/16/2006 10/30/2018 Hyperlipidemia 08/04/2015 documented as of this encounter (statuses as of 07/29/2022) [facility]2017 History of Past illness Narrative* Problem Noted Date Resolved Date Well adult exam 10/03/2016 04/12/2020 Overview: last done: 07/16/19. does not want colonoscopies. Other physical therapy 08/16/2010 0 Sprain of neck 07/30/2010 08/30/2010 Unspecified pruritic disorder 03/02/2009 Cervicalgia 10/16/2006 10/30/2018 Hyperlipidemia 08/04/2015 documented as of this encounter (statuses as of 07/30/2022) [facility]2017 History of Past illness Narrative* Problem Noted Date Resolved Date Well adult exam 10/03/2016 04/12/2020 Overview: last done: 07/16/19. does not want colonoscopies. Other physical therapy 08/16/2010 0 Sprain of neck 07/30/2010 08/30/2010 Unspecified pruritic disorder 03/02/2009 Cervicalgia 10/16/2006 10/30/2018 Hyperlipidemia 08/04/2015 documented as of this encounter (statuses as of 08/05/2022) [facility]2017 History of Past illness Narrative* Problem Noted Date Resolved Date Well adult exam 10/03/2016 04/12/2020 Overview: last done: 07/16/19. does not want colonoscopies. Other physical therapy 08/16/2010 0 Sprain of neck 07/30/2010 08/30/2010 Unspecified pruritic disorder 03/02/2009 Cervicalgia 10/16/2006 10/30/2018 Hyperlipidemia 08/04/2015 documented as of this encounter (statuses as of 08/07/2022) [facility]2017 History of Past illness Narrative* Problem Noted Date Resolved Date Well adult exam 10/03/2016 04/12/2020 Overview: last done: 07/16/19. does not want colonoscopies. Other physical therapy 08/16/2010 0 Sprain of neck 07/30/2010 08/30/2010 Unspecified pruritic disorder 03/02/2009 Cervicalgia 10/16/2006 10/30/2018 Hyperlipidemia 08/04/2015 documented as of this encounter (statuses as of 08/23/2022) [facility]2017 History of Past illness Narrative* Problem Noted Date Resolved Date Well adult exam 10/03/2016 04/12/2020 Overview: last done: 07/16/19. does not want colonoscopies. Other physical therapy 08/16/2010 0 Sprain of neck 07/30/2010 08/30/2010 Unspecified pruritic disorder 03/02/2009 Cervicalgia 10/16/2006 10/30/2018 Hyperlipidemia 08/04/2015 documented as of this encounter (statuses as of 08/23/2022) [facility]2017 History of Past illness Narrative* Problem Noted Date Resolved Date Well adult exam 10/03/2016 04/12/2020 Overview: last done: 07/16/19. does not want colonoscopies. Other physical therapy 08/16/2010 0 Sprain of neck 07/30/2010 08/30/2010 Unspecified pruritic disorder 03/02/2009 Cervicalgia 10/16/2006 10/30/2018 Hyperlipidemia 08/04/2015 documented as of this encounter (statuses as of 09/03/2022) [facility]2017 History of Past illness Narrative* Problem Noted Date Resolved Date Well adult exam 10/03/2016 04/12/2020 Overview: last done: 07/16/19. does not want colonoscopies. Other physical therapy 08/16/2010 0 Sprain of neck 07/30/2010 08/30/2010 Unspecified pruritic disorder 03/02/2009 Cervicalgia 10/16/2006 10/30/2018 Hyperlipidemia 08/04/2015 documented as of this encounter (statuses as of 09/04/2022) [facility]2017 History of Past illness Narrative* Problem Noted Date Resolved Date Well adult exam 10/03/2016 04/12/2020 Overview: last done: 07/16/19. does not want colonoscopies. Other physical therapy 08/16/2010 0 Sprain of neck 07/30/2010 08/30/2010 Unspecified pruritic disorder 03/02/2009 Cervicalgia 10/16/2006 10/30/2018 Hyperlipidemia 08/04/2015 documented as of this encounter (statuses as of 09/06/2022) [facility]2017 History of Past illness Narrative* Problem Noted Date Resolved Date Well adult exam 10/03/2016 04/12/2020 Overview: last done: 07/16/19. does not want colonoscopies. Other physical therapy 08/16/2010 0 Sprain of neck 07/30/2010 08/30/2010 Unspecified pruritic disorder 03/02/2009 Cervicalgia 10/16/2006 10/30/2018 Hyperlipidemia 08/04/2015 documented as of this encounter (statuses as of 09/24/2022) [facility]2017 History of Past illness Narrative* Problem Noted Date Resolved Date Well adult exam 10/03/2016 04/12/2020 Overview: last done: 07/16/19. does not want colonoscopies. Other physical therapy 08/16/2010 0 Sprain of neck 07/30/2010 08/30/2010 Unspecified pruritic disorder 03/02/2009 Cervicalgia 10/16/2006 10/30/2018 Hyperlipidemia 08/04/2015 documented as of this encounter (statuses as of 09/24/2022) [facility]2017 History of Past illness Narrative* Problem Noted Date Resolved Date Well adult exam 10/03/2016 04/12/2020 Overview: last done: 07/16/19. does not want colonoscopies. Other physical therapy 08/16/2010 0 Sprain of neck 07/30/2010 08/30/2010 Unspecified pruritic disorder 03/02/2009 Cervicalgia 10/16/2006 10/30/2018 Hyperlipidemia 08/04/2015 documented as of this encounter (statuses as of 09/24/2022) [facility]2017 History of Past illness Narrative* Problem Noted Date Resolved Date Well adult exam 10/03/2016 04/12/2020 Overview: last done: 07/16/19. does not want colonoscopies. Other physical therapy 08/16/2010 0 Sprain of neck 07/30/2010 08/30/2010 Unspecified pruritic disorder 03/02/2009 Cervicalgia 10/16/2006 10/30/2018 Hyperlipidemia 08/04/2015 documented as of this encounter (statuses as of 10/02/2022) [facility]2017 History of Past illness Narrative* Problem Noted Date Resolved Date Well adult exam 10/03/2016 04/12/2020 Overview: last done: 07/16/19. does not want colonoscopies. Other physical therapy 08/16/2010 0 Sprain of neck 07/30/2010 08/30/2010 Unspecified pruritic disorder 03/02/2009 Cervicalgia 10/16/2006 10/30/2018 Hyperlipidemia 08/04/2015 documented as of this encounter (statuses as of 10/08/2022) [facility]2017 History of Past illness Narrative* Problem Noted Date Resolved Date Well adult exam 10/03/2016 04/12/2020 Overview: last done: 07/16/19. does not want colonoscopies. Other physical therapy 08/16/2010 0 Sprain of neck 07/30/2010 08/30/2010 Unspecified pruritic disorder 03/02/2009 Cervicalgia 10/16/2006 10/30/2018 Hyperlipidemia 08/04/2015 documented as of this encounter (statuses as of 10/15/2022) [facility]2017 History of Past illness Narrative* Problem Noted Date Resolved Date Well adult exam 10/03/2016 04/12/2020 Overview: last done: 07/16/19. does not want colonoscopies. Other physical therapy 08/16/2010 0 Sprain of neck 07/30/2010 08/30/2010 Unspecified pruritic disorder 03/02/2009 Cervicalgia 10/16/2006 10/30/2018 Hyperlipidemia 08/04/2015 documented as of this encounter (statuses as of 10/24/2022) [facility]2017 History of Past illness Narrative* Problem Noted Date Resolved Date Well adult exam 10/03/2016 04/12/2020 Overview: last done: 07/16/19. does not want colonoscopies. Other physical therapy 08/16/2010 0 Sprain of neck 07/30/2010 08/30/2010 Unspecified pruritic disorder 03/02/2009 Cervicalgia 10/16/2006 10/30/2018 Hyperlipidemia 08/04/2015 documented as of this encounter (statuses as of 11/05/2022) [facility]2017 History of Past illness Narrative* Problem Noted Date Resolved Date Well adult exam 10/03/2016 04/12/2020 Overview: last done: 07/16/19. does not want colonoscopies. Other physical therapy 08/16/2010 0 Sprain of neck 07/30/2010 08/30/2010 Unspecified pruritic disorder 03/02/2009 Cervicalgia 10/16/2006 10/30/2018 Hyperlipidemia 08/04/2015 documented as of this encounter (statuses as of 11/05/2022) [facility]2017 History of Past illness Narrative* Problem Noted Date Resolved Date Well adult exam 10/03/2016 04/12/2020 Overview: last done: 07/16/19. does not want colonoscopies. Other physical therapy 08/16/2010 0 Sprain of neck 07/30/2010 08/30/2010 Unspecified pruritic disorder 03/02/2009 Cervicalgia 10/16/2006 10/30/2018 Hyperlipidemia 08/04/2015 documented as of this encounter (statuses as of 11/12/2022) [facility]2017 History of Past illness Narrative* Problem Noted Date Resolved Date Well adult exam 10/03/2016 04/12/2020 Overview: last done: 07/16/19. does not want colonoscopies. Other physical therapy 08/16/2010 0 Sprain of neck 07/30/2010 08/30/2010 Unspecified pruritic disorder 03/02/2009 Cervicalgia 10/16/2006 10/30/2018 Hyperlipidemia 08/04/2015 documented as of this encounter (statuses as of 11/14/2022) [facility]2017 History of Past illness Narrative* Problem Noted Date Resolved Date Well adult exam 10/03/2016 04/12/2020 Overview: last done: 07/16/19. does not want colonoscopies. Other physical therapy 08/16/2010 0 Sprain of neck 07/30/2010 08/30/2010 Unspecified pruritic disorder 03/02/2009 Cervicalgia 10/16/2006 10/30/2018 Hyperlipidemia 08/04/2015 documented as of this encounter (statuses as of 11/21/2022) [address]02-2017 History of Past illness Narrative* Problem Noted Date Resolved Date Well adult exam 10/03/2016 04/12/2020 Overview: last done: 07/16/19. does not want colonoscopies. Other physical therapy 08/16/2010 0 Sprain of neck 07/30/2010 08/30/2010 Unspecified pruritic disorder 03/02/2009 Cervicalgia 10/16/2006 10/30/2018 Hyperlipidemia 08/04/2015 documented as of this encounter (statuses as of 11/28/2022) [facility]2017 History of Past illness Narrative* Problem Noted Date Resolved Date Well adult exam 10/03/2016 04/12/2020 Overview: last done: 07/16/19. does not want colonoscopies. Other physical therapy 08/16/2010 0 Sprain of neck 07/30/2010 08/30/2010 Unspecified pruritic disorder 03/02/2009 Cervicalgia 10/16/2006 10/30/2018 Hyperlipidemia 08/04/2015 documented as of this encounter (statuses as of 11/29/2022) [facility]2017 History of Past illness Narrative* Problem Noted Date Resolved Date Well adult exam 10/03/2016 04/12/2020 Overview: last done: 07/16/19. does not want colonoscopies. Other physical therapy 08/16/2010 0 Sprain of neck 07/30/2010 08/30/2010 Unspecified pruritic disorder 03/02/2009 Cervicalgia 10/16/2006 10/30/2018 Hyperlipidemia 08/04/2015 documented as of this encounter (statuses as of 01/08/2023) [facility]2017 History of Past illness Narrative* Problem Noted Date Resolved Date Well adult exam 10/03/2016 04/12/2020 Overview: last done: 07/16/19. does not want colonoscopies. Other physical therapy 08/16/2010 0 Sprain of neck 07/30/2010 08/30/2010 Unspecified pruritic disorder 03/02/2009 Cervicalgia 10/16/2006 10/30/2018 Hyperlipidemia 08/04/2015 documented as of this encounter (statuses as of 02/04/2023) [facility]2017 History of Past illness Narrative* Problem Noted Date Resolved Date Well adult exam 10/03/2016 04/12/2020 Overview: last done: 07/16/19. does not want colonoscopies. Other physical therapy 08/16/2010 0 Sprain of neck 07/30/2010 08/30/2010 Unspecified pruritic disorder 03/02/2009 Cervicalgia 10/16/2006 10/30/2018 Hyperlipidemia 08/04/2015 documented as of this encounter (statuses as of 02/24/2023) [facility]2017 History of Past illness Narrative* Problem Noted Date Diagnosed Date Resolved Date Well adult exam 10/03/2016 04/12/2020 Overview: last done: 07/16/19. does not want colonoscopies. Other physical therapy 08/16/201008/30 Sprain of neck 07/30/2010 08/30/2010 Unspecified pruritic disorder 03/02/2009 04/12/2020 Cervicalgia 10/16/2006 10/30/2018 Hyperlipidemia 08/04/2015 documented as of this encounter (statuses as of 03/10/2023) [facility]2017 History of Past illness Narrative* Problem Noted Date Diagnosed Date Resolved Date Well adult exam 10/03/2016 04/12/2020 Overview: last done: 07/16/19. does not want colonoscopies. Other physical therapy 08/16/201008/30 Sprain of neck 07/30/2010 08/30/2010 Unspecified pruritic disorder 03/02/2009 04/12/2020 Cervicalgia 10/16/2006 10/30/2018 Hyperlipidemia 08/04/2015 documented as of this encounter (statuses as of 04/01/2023) [facility]2017 History of Past illness Narrative* Problem Noted Date Diagnosed Date Resolved Date Well adult exam 10/03/2016 04/12/2020 Overview: last done: 07/16/19. does not want colonoscopies. Other physical therapy 08/16/201008/30 Sprain of neck 07/30/2010 08/30/2010 Unspecified pruritic disorder 03/02/2009 04/12/2020 Cervicalgia 10/16/2006 10/30/2018 Hyperlipidemia 08/04/2015 documented as of this encounter (statuses as of 04/02/2023) [facility]2017 History of Past illness Narrative* Problem Noted Date Diagnosed Date Resolved Date Well adult exam 10/03/2016 04/12/2020 Overview: last done: 07/16/19. does not want colonoscopies. Other physical therapy 08/16/201008/30 Sprain of neck 07/30/2010 08/30/2010 Unspecified pruritic disorder 03/02/2009 04/12/2020 Cervicalgia 10/16/2006 10/30/2018 Hyperlipidemia 08/04/2015 documented as of this encounter (statuses as of 04/03/2023) [facility]2017 History of Past illness Narrative* Problem Noted Date Diagnosed Date Resolved Date Well adult exam 10/03/2016 04/12/2020 Overview: last done: 07/16/19. does not want colonoscopies. Other physical therapy 08/16/201008/30 Sprain of neck 07/30/2010 08/30/2010 Unspecified pruritic disorder 03/02/2009 04/12/2020 Cervicalgia 10/16/2006 10/30/2018 Hyperlipidemia 08/04/2015 documented as of this encounter (statuses as of 04/05/2023) [facility]2017 History of Past illness Narrative* Problem Noted Date Diagnosed Date Resolved Date Well adult exam 10/03/2016 04/12/2020 Overview: last done: 07/16/19. does not want colonoscopies. Other physical therapy 08/16/201008/30 Sprain of neck 07/30/2010 08/30/2010 Unspecified pruritic disorder 03/02/2009 04/12/2020 Cervicalgia 10/16/2006 10/30/2018 Hyperlipidemia 08/04/2015 documented as of this encounter (statuses as of 04/12/2023) [facility]2017 History of Past illness Narrative* Problem Noted Date Diagnosed Date Resolved Date Well adult exam 10/03/2016 04/12/2020 Overview: last done: 07/16/19. does not want colonoscopies. Other physical therapy 08/16/201008/30 Sprain of neck 07/30/2010 08/30/2010 Unspecified pruritic disorder 03/02/2009 04/12/2020 Cervicalgia 10/16/2006 10/30/2018 Hyperlipidemia 08/04/2015 documented as of this encounter (statuses as of 05/18/2023) [facility]2017 History of Past illness Narrative* Problem Noted Date Diagnosed Date Resolved Date Well adult exam 10/03/2016 04/12/2020 Overview: last done: 07/16/19. does not want colonoscopies. Other physical therapy 08/16/201008/30 Sprain of neck 07/30/2010 08/30/2010 Unspecified pruritic disorder 03/02/2009 04/12/2020 Cervicalgia 10/16/2006 10/30/2018 Hyperlipidemia 08/04/2015 documented as of this encounter (statuses as of 06/19/2023) [facility]2017 History of Past illness Narrative* Problem Noted Date Diagnosed Date Resolved Date Well adult exam 10/03/2016 04/12/2020 Overview: last done: 07/16/19. does not want colonoscopies. Other physical therapy 08/16/201008/30 Sprain of neck 07/30/2010 08/30/2010 Unspecified pruritic disorder 03/02/2009 04/12/2020 Cervicalgia 10/16/2006 10/30/2018 Hyperlipidemia 08/04/2015 documented as of this encounter (statuses as of 06/26/2023) [facility]2017 History of Past illness Narrative* Problem Noted Date Diagnosed Date Resolved Date Well adult exam 10/03/2016 04/12/2020 Overview: last done: 07/16/19. does not want colonoscopies. Other physical therapy 08/16/201008/30 Sprain of neck 07/30/2010 08/30/2010 Unspecified pruritic disorder 03/02/2009 04/12/2020 Cervicalgia 10/16/2006 10/30/2018 Hyperlipidemia 08/04/2015 documented as of this encounter (statuses as of 06/27/2023) [facility]2017 History of Past illness Narrative* Problem Noted Date Diagnosed Date Resolved Date Well adult exam 10/03/2016 04/12/2020 Overview: last done: 07/16/19. does not want colonoscopies. Other physical therapy 08/16/201008/30 Sprain of neck 07/30/2010 08/30/2010 Unspecified pruritic disorder 03/02/2009 04/12/2020 Cervicalgia 10/16/2006 10/30/2018 Hyperlipidemia 08/04/2015 documented as of this encounter (statuses as of 06/27/2023) [facility]2017 History of Past illness Narrative* Problem Noted Date Diagnosed Date Resolved Date Well adult exam 10/03/2016 04/12/2020 Overview: last done: 07/16/19. does not want colonoscopies. Other physical therapy 08/16/201008/30 Sprain of neck 07/30/2010 08/30/2010 Unspecified pruritic disorder 03/02/2009 04/12/2020 Cervicalgia 10/16/2006 10/30/2018 Hyperlipidemia 08/04/2015 documented as of this encounter (statuses as of 07/06/2023) [facility]2017 History of Past illness Narrative* Problem Noted Date Diagnosed Date Resolved Date Well adult exam 10/03/2016 04/12/2020 Overview: last done: 07/16/19. does not want colonoscopies. Other physical therapy 08/16/201008/30 Sprain of neck 07/30/2010 08/30/2010 Unspecified pruritic disorder 03/02/2009 04/12/2020 Cervicalgia 10/16/2006 10/30/2018 Hyperlipidemia 08/04/2015 documented as of this encounter (statuses as of 07/06/2023) [facility]2017 History of Past illness Narrative* Problem Noted Date Diagnosed Date Resolved Date Well adult exam 10/03/2016 04/12/2020 Overview: last done: 07/16/19. does not want colonoscopies. Other physical therapy 08/16/201008/30 Sprain of neck 07/30/2010 08/30/2010 Unspecified pruritic disorder 03/02/2009 04/12/2020 Cervicalgia 10/16/2006 10/30/2018 Hyperlipidemia 08/04/2015 documented as of this encounter (statuses as of 07/06/2023) [facility]2017 History of Past illness Narrative* Problem Noted Date Diagnosed Date Resolved Date Well adult exam 10/03/2016 04/12/2020 Overview: last done: 07/16/19. does not want colonoscopies. Other physical therapy 08/16/201008/30 Sprain of neck 07/30/2010 08/30/2010 Unspecified pruritic disorder 03/02/2009 04/12/2020 Cervicalgia 10/16/2006 10/30/2018 Hyperlipidemia 08/04/2015 documented as of this encounter (statuses as of 10/10/2023) [facility] History of Past illness Narrative* Problem Noted Date Diagnosed Date Resolved Date Well adult exam 10/03/2016 04/12/2020 Overview: last done: 07/16/19. does not want colonoscopies. Other physical therapy 08/16/201008/30 Sprain of neck 07/30/2010 08/30/2010 Unspecified pruritic disorder 03/02/2009 04/12/2020 Cervicalgia 10/16/2006 10/30/2018 Hyperlipidemia 08/04/2015 documented as of this encounter (statuses as of 10/11/2023) [facility] History of Past illness Narrative* Problem Noted Date Diagnosed Date Resolved Date Well adult exam 10/03/2016 04/12/2020 Overview: last done: 07/16/19. does not want colonoscopies. Other physical therapy 08/16/201008/30 Sprain of neck 07/30/2010 08/30/2010 Unspecified pruritic disorder 03/02/2009 04/12/2020 Cervicalgia 10/16/2006 10/30/2018 Hyperlipidemia 08/04/2015 documented as of this encounter (statuses as of 10/14/2023) [facility] History of Past illness Narrative* Problem Noted Date Diagnosed Date Resolved Date Well adult exam 10/03/2016 04/12/2020 Overview: last done: 07/16/19. does not want colonoscopies. Other physical therapy 08/16/201008/30 Sprain of neck 07/30/2010 08/30/2010 Unspecified pruritic disorder 03/02/2009 04/12/2020 Cervicalgia 10/16/2006 10/30/2018 Hyperlipidemia 08/04/2015 documented as of this encounter (statuses as of 10/16/2023) [facility] note* Diagnosis Type 2 diabetes mellitus without complication, without long-term current use of insulin (HCC) [facility] Diagnosis Syncope, unspecified syncope type- Primary Orthostatic hypotension Facial numbness Disturbance of skin sensation Injury of head, sequela Chronic post-traumatic headache, not intractable Chronic post-traumatic headache [facility] Diagnosis Orthostatic hypotension- Primary [facility] Diagnosis Mixed hyperlipidemia [facility] Diagnosis Injury of head, initial encounter documented [facility] Diagnosis Injury of head, initial encounter [facility] Diagnosis Chest pain, unspecified type [facility] Diagnosis Situational depression- Primary Adjustment disorder with depressed mood Panic disorder Panic disorder without agoraphobia [facility] Diagnosis Orthostatic hypotension- Primary Occipital neuralgia of right side Neuropathy Mononeuritis of unspecified site Syncope and collapse [facility] Diagnosis Encounter for immunization- Primary Need for other specified prophylactic vaccination against single bacterial disease Type 2 diabetes mellitus with diabetic neuropathy, without long-term current use of insulin ([facility]) Essential hypertension, benign Mixed hyperlipidemia Coronary atherosclerosis due to lipid rich plaque GERD without esophagitis Esophageal reflux Carotid stenosis, asymptomatic, bilateral Migraine variant Variants of migraine, not elsewhere classified, without mention of intractable migraine without mention of status migrainosus Adjustment disorder with depressed mood [facility] Diagnosis Hyponatremia- Primary Hyposmolality and/or hyponatremia [facility] Diagnosis Injury of head, initial encounter- Primary LOC (loss of consciousness) ([facility]) Other alteration of consciousness [facility] Diagnosis Type 2 diabetes mellitus without complication, without long-term current use of insulin ([facility]) Mixed hyperlipidemia [facility] Diagnosis Abnormal weight loss- Primary Loss of weight Muscle mass Other musculoskeletal symptoms referable to limbs Intractable chronic post-traumatic headache Chronic post-traumatic headache Neuropathy Mononeuritis of unspecified site Situational depression Adjustment disorder with depressed mood Fatigue, unspecified type Myalgia Mylagia and myositis, unspecified [facility] Diagnosis Anemia, unspecified type- Primary Hyperglycemia Other abnormal glucose Uncontrolled type 2 diabetes mellitus with hyperglycemia ([facility]) Blood sugar increased Other abnormal glucose [facility] Diagnosis Iron deficiency anemia, unspecified iron deficiency anemia type- Primary [facility]* Diagnosis Anemia, unspecified type [facility]* Diagnosis Abnormal weight loss- Primary Loss of weight [facility] Diagnosis Panic disorder Panic disorder without agoraphobia Situational depression Adjustment disorder with depressed mood Adjustment disorder with depressed mood [facility]* Diagnosis Bladder wall thickening- Primary Other specified disorders of bladder Abnormal weight loss Loss of weight [facility] Diagnosis Type 2 diabetes mellitus with diabetic neuropathy, without long-term current use of insulin ([facility])- Primary [facility] Diagnosis Bladder wall thickening- Primary Other specified disorders of bladder Benign non-nodular prostatic hyperplasia without lower urinary tract symptoms [facility] Diagnosis Dizziness- Primary Dizziness and giddiness Tremor Abnormal involuntary movements Hypotension, unspecified hypotension type Panic disorder Panic disorder without agoraphobia Situational depression Adjustment disorder with depressed mood Atypical chest pain Other chest pain Iron deficiency anemia, unspecified iron deficiency anemia type [facility] Diagnosis Foot injury, left, initial encounter- Primary [facility] Diagnosis Syncope, unspecified syncope type- Primary Orthostatic hypotension [facility] Diagnosis Type 2 diabetes mellitus with diabetic neuropathy, without long-term current use of insulin (HCC)- Primary Essential hypertension, benign [facility]* Diagnosis Iron deficiency anemia, unspecified iron deficiency anemia type- Primary Anemia, unspecified type [facility] Diagnosis Long-segment Santos's esophagus- Primary Hiatal hernia Diaphragmatic hernia without mention of obstruction or gangrene Diverticulosis Diverticulosis of colon (without mention of hemorrhage) Other gastritis without bleeding [facility] Diagnosis Rhus dermatitis- Primary Contact dermatitis and other eczema due to plants (except food) Syncope, unspecified syncope type- Primary Orthostatic hypotension [facility] Diagnosis Syncope, unspecified syncope type- Primary Orthostatic hypotension [facility] Diagnosis Medicare annual wellness visit, subsequent- Primary Routine general medical examination at a [facility] Advance directive discussed with patient Other specified [...] esophagitis Esophageal reflux [facility] Diagnosis Elevated PSA- Primary Elevated prostate specific antigen (PSA) Uncontrolled type 2 diabetes mellitus with hyperglycemia (HCC) documented [facility] Diagnosis Type 2 diabetes mellitus without complication, without long-term current use of insulin (HCC) [facility] Diagnosis Panic disorder- Primary Panic disorder without agoraphobia Syncope, unspecified syncope type- Primary Orthostatic hypotension [facility] Diagnosis Rash- Primary Rash and other nonspecific skin eruption documented in this encounter [facility] note* Diagnosis Mouth sores- Primary Other and unspecified diseases of the oral soft tissues documented in this encounter [facility] note* Diagnosis Patient left without being seen- Primary Surgical or other procedure not carried out because of patient's decision SOB (shortness of breath) Shortness of breath documented in this encounter [facility] note* Diagnosis Mouth pain- Primary Other and unspecified diseases of the oral soft tissues documented in this encounter [facility] note* Diagnosis Abnormal weight loss Loss of weight documented in this encounter [facility] note* Diagnosis Abnormal weight loss Loss of weight documented in this encounter [facility] note* Diagnosis Type 2 diabetes mellitus with diabetic neuropathy, without long-term current use of insulin (HCC) documented in this encounter [facility] for referral (narrative)* Diagnostic Procedure Only (Routine) - Authorized Specialty Diagnoses / Procedures Referred By Carlos neff Referred To Contact US IMAGING Diagnoses Abnormal weight loss Procedures US ABD RT UPPER QUADRANT US ABDOMINAL REAL TIME W/IMAGE LIMITED Martha Boston PA-C [address] [place] [id number] Us Imaging Referral ID Status Reason Start Date Expiration Date Visits Requested Visits Authorized [id number] Authorized Auto-Generat ed Referral 2 07/25/2023 1 1 [facility] for referral (narrative)* Outpatient Procedure (Routine) - Pending Review Specialty Diagnoses / Procedures Referred By Carlos neff Referred To Contact [facility] Diagnoses Anemia, unspecified type Procedures COLONOSCOPY DIAGNOSTIC COLONOSCOPY FLX DX W/COLLJ SPEC WHEN Thai Borges MD [address] [place] [address] [facility] [address] [place] [address] Referral ID Status Reason Start Date Expiration Date Visits Requested Visits Authorized [id number] Pending Review Auto-Generat ed Referral 2 06/27/2023 1 1 * Outpatient Procedure (Routine) - Pending Review Specialty Diagnoses / Procedures Referred By Carlos neff Referred To Contact [facility] Diagnoses Anemia, unspecified type Procedures EGD DIAGNOSTIC ESOPHAGOGASTRODUODENOSC OPY TRANSORAL DIAGNOSTIC Thai Santiago MD [address] [place] [address] [facility] [address] [place] [address] Referral ID Status Reason Start Date Expiration Date Visits Requested Visits Authorized [id number] Pending Review Auto-Generat ed Referral 2 06/27/2023 1 1 [facility] for referral (narrative)* Diagnostic Procedure Only (Urgent) - Closed Specialty Diagnoses / Procedures Referred By Carlos neff Referred To Contact XR IMAGING Diagnoses Foot injury, left, initial encounter Procedures XR FOOT GENERAL 3V AP/LAT/OBL LEFT RADEX FOOT COMPLETE MINIMUM 3 VIEWS Miladys Butt, COLLETTE.MISSILE MECHANIC [address] [place] [address] Xr Imaging Referral ID Status Reason Start Date Expiration Date V isits Requested Visits Authorized [id number] Closed Auto-Generate d Referral 09/23/2022 10/23/2023 1 1 [facility] for referral (narrative)* Outpatient Procedure (Routine) - Closed Specialty Diagnoses / Procedures Referred By Carlos neff Referred To Contact Diagnoses Anemia, unspecified type Procedures COLONOSCOPY DIAGNOSTIC COLONOSCOPY FLX DX W/COLLJ SPEC WHEN PFRMD Thai Santiago MD [address] [place] [address] Nell Gillis MD [address] [place] [address] Referral ID Status Reason Start Date Expiration Date V isits Requested Visits Authorized [id number] Closed Auto-Generate d Referral 10/14/2022 01/12/2023 1 1 * Outpatient Procedure (Routine) - Closed Specialty Diagnoses / Procedures Referred By [facility] t Referred To Contact Diagnoses Anemia, unspecified type Procedures EGD DIAGNOSTIC ESOPHAGOGASTRODUODENOSCOPY TRANSORAL DIAGNOSTIC Thai Santiago MD [address] [place] [address] Nell Gillis MD [address] [facility] [place] [address] Referral ID Status Reason Start Date Expiration Date V isits Requested Visits Authorized [id number] Closed Auto-Generate d Referral 10/14/2022 01/12/2023 1 1 [facility] for referral (narrative)* Diagnostic Procedure Only (Routine) - Closed Specialty Diagnoses / Procedures Referred By [facility] Referred To Contact CT IMAGING Diagnoses Abnormal weight loss Procedures CT ABD/PEL W IVCON CT ABD & PELVIS W/CONTRAST Martha Boston PA-C [address] [place] [address] [place] [address] Referral ID Status Reason Start Date Expiration Date V isits Requested Visits Authorized [id number] Closed Auto-Generate d Referral 07/09/2022 08/08/2022 2 2 * MRI/CT (Routine) - Closed Specialty Diagnoses / Procedures Referred By [facility] Referred To Contact CT IMAGING Diagnoses Abnormal weight loss Procedures CT CHEST W IVCON DIAGNOSTIC COMPUTED TOMOGRAPHY THORAX W/CONTRAST Martha Boston PA-C [address] [place] [address] [place] [address] Referral ID Status Reason Start Date Expiration Date V isits Requested Visits Authorized [id number] Closed Auto-Generate d Referral 07/09/2022 08/08/2022 1 1 [facility] for referral (narrative)* Diagnostic Procedure Only (Routine) - Closed Specialty Diagnoses / Procedures Referred By Contac t Referred To Contact US IMAGING Diagnoses Abnormal weight loss Procedures US ABD RT UPPER QUADRANT US ABDOMINAL REAL TIME W/IMAGE LIMITED Martha Boston PA-C [address] [place] [address] [place] [address] Referral ID Status Reason Start Date Expiration Date V isits Requested Visits Authorized [id number] Closed Auto-Generate d Referral 06/25/2022 07/25/2023 1 1 [facility] for visit Narrative* Outpatient Procedure (Routine) - Closed Specialty Diagnoses / Procedures Referred By Contac t Referred To Contact Diagnoses Anemia, unspecified type Procedures COLONOSCOPY DIAGNOSTIC COLONOSCOPY FLX DX W/COLLJ SPEC WHEN Thai Borges MD [address] [facility] [place] [address] Nell Gillis MD [address] [facility] [address] Referral ID Status Reason Start Date Expiration Date V isits Requested Visits Authorized [id number] Closed Auto-Generate d Referral 10/14/2022 01/12/2023 1 1 [facility] for visit Narrative* Diagnostic Procedure Only (Routine) - Closed Specialty Diagnoses / Procedures Referred By Contac t Referred To Contact CT IMAGING Diagnoses Abnormal weight loss Procedures CT ABD/PEL W IVCON CT ABD & PELVIS W/CONTRAST Martha Boston PA-C [address] [place] [address] [place] [address] Referral ID Status Reason Start Date Expiration Date V isits Requested Visits Authorized [id number] Closed Auto-Generate d Referral 07/09/2022 08/08/2022 2 2 [facility] Summary Purpose Family History No Family History Records FoundNo Family History Records FoundNo Family History Records FoundNo Family History Records FoundNo Family History Records Found Advance Directives No Advanced Directives Records FoundDocuments on File Type Date Recorded 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 Advance Directive(s) Advance Directive(s) 02/20/2018 5:13 PM Advance Directive(s) 02/16/2018 12:54 PM Advance Directive(s) 11/07/2017 1:34 PM Advance Directive(s) 11/07/2017 4:10 PM Advance Directive(s) 11/07/2017 4:03 PM Advance Directive(s) 09/10/2017 6:38 AM Advance Directive(s) 11/20/2015 9:33 AM Documents on File Type Date Recorded 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 Advance Directive(s) Advance Directive(s) 02/20/2018 5:13 PM Advance Directive(s) 02/16/2018 12:54 PM Advance Directive(s) 11/07/2017 1:34 PM Advance Directive(s) 11/07/2017 4:10 PM Advance Directive(s) 11/07/2017 4:03 PM Advance Directive(s) 09/10/2017 6:38 AM Advance Directive(s) 11/20/2015 9:33 AM Documents on File Type Date Recorded 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 Advance Directive(s) 11/07/2017 4:03 PM Documents on File Type Date Recorded 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 Advance Directive(s) 11/07/2017 4:03 PM Reason for Referral Specialty Diagnoses / Procedures Referred By Carlos neff Referred To Contact Neurology Diagnoses Orthostatic hypotension Procedures CONSULT TO NEUROLOGY OFFICE/OUTPATIENT NEW [facility]IGH MDM 60-74 MINUTES Jenna Jim APRN.MISSILE MECHANIC [address] [place] [id number] Referral ID Status Reason Start Date Expiration Date Visits Requested Visits Authorized [id number] Pending Review PCP Requested Referral 02/22/2022 02/22/2023 1 1 Specialty Diagnoses / Procedures Referred By Carlos t Referred To Contact CT IMAGING Diagnoses Injury of head, initial encounter Procedures CT BRAIN WO IVCON CT HEAD/BRAIN W/O CONTRAST MATERIAL Jenna Jim APRN.MISSILE MECHANIC [address] [place] [address] Ct Imaging Referral ID Status Reason Start Date Expiration Date V isits Requested Visits Authorized [id number] Closed Auto-Generate d Referral 03/19/2022 04/18/2023 1 1 Specialty Diagnoses / Procedures Referred By Contac t Referred To Contact General Surgery Diagnoses Anemia, unspecified type Procedures CONSULT TO GENERAL SURGERY OFFICE/OUTPATIENT [facility] MDM 60-74 MINUTES Martha Boston PA-C [address] [place] [address] Referral ID Status Reason Start Date Expiration Date Visits Requested Visits Authorized [id number] Pending Review PCP Requested Referral 06/26/2023 1 1 Specialty Diagnoses / Procedures Referred By Contac t Referred To Contact CT IMAGING Diagnoses Abnormal weight loss Procedures CT ABD/PEL W IVCON CT ABD & PELVIS W/CONTRAST Martha Boston PA-C [address] [place] [address] Ct Imaging Referral ID Status Reason Start Date Expiration Date Visits Requested Visits Authorized [id number] Pending Review Auto-Generat ed Referral 07/02/2022 08/01/2023 1 1 Specialty Diagnoses / Procedures Referred By Contac t Referred To Contact CT IMAGING Diagnoses Abnormal weight loss Procedures CT CHEST W IVCON DIAGNOSTIC COMPUTED TOMOGRAPHY THORAX W/CONTRAST Martha Boston PA-C [address] [place] [address] Ct Imaging Referral ID Status Reason Start Date Expiration Date Visits Requested Visits Authorized [id number] Pending Review Auto-Generat ed Referral 07/02/2022 08/01/2023 1 1 Specialty Diagnoses / Procedures Referred By Contac t Referred To Contact Urology Diagnoses Bladder wall thickening Abnormal weight loss Procedures CONSULT TO UROLOGY OFFICE/OUTPATIENT [facility] MDM 60-74 MINUTES Martha Boston PA-C [address] [place] [address] Referral ID Status Reason Start Date Expiration Date Visits Requested Visits Authorized [id number] Pending Review PCP Requested Referral 07/10/2022 07/10/2023 1 1 Specialty Diagnoses / Procedures Referred By Contac t Referred To Contact Neurology Diagnoses Type 2 diabetes mellitus with diabetic neuropathy, without long-term current use of insulin (HCC) Procedures CONSULT TO NEUROLOGY Gamal Mathis APRN.MISSILE MECHANIC [address] [place] [address] Lemuel Troy Jr., MD [address] [place] [address] Referral ID Status Reason Start Date Expiration Date Visits Requested Visits Authorized [id number] Ref Not Required PCP Requested Referral 2 07/30/2023 1 1 Specialty Diagnoses / Procedures Referred By Contac t Referred To Contact Ophthalmology Diagnoses Type 2 diabetes mellitus with diabetic neuropathy, without long-term current use of insulin (HCC) Procedures CONSULT TO OPHTHALMOLOGY OFFICE/OUTPATIENT [facility] 60-74 MINUTES Martha Boston PA-C [address] [place] [address] Referral ID Status Reason Start Date Expiration Date Visits Requested Visits Authorized [id number] Pending Review PCP Requested Referral 11/28/2022 11/28/2023 [...] Date Dose Rate Site benzocaine 20% 4 [place] (TOPEX) 4 [place], TOPICAL, ONCE, 1 dose, On Fri10/14/22 at [...] DATE CREATED AUTHOR AUTHOR'S ORGANIZ ATION 04/06/2022 [facility] nt DATE CREATED AUTHOR AUTHOR'S ORGANIZ ATION 08/25/2022 [facility] DATE CREATED AUTHOR AUTHOR'S ORGANIZ ATION 10/20/2022 [facility] DATE CREATED AUTHOR AUTHOR'S ORGANIZ ATION 10/17/2023 [facility] Source Comments (unrecognize d section and content) In the event this informatio n is protected by the Federal Confidentiality of Alcohol and Drug Abuse Patient Records regulations: The Federal rules restrict any use of the information to criminally investigate or prosecute any alcohol or drug abuse patient.[facility] the event this information is protected by the Federal Confidentiality of Alcohol and Drug Abuse Patient Records regulations: The Federal rules restrict any use of the information to criminally investigate or prosecute any alcohol or drug abuse patient.[facility] the event this information is protected by the Federal Confidentiality of Alcohol and Drug Abuse Patient Records regulations: The Federal rules restrict any use of the information to criminally investigate or prosecute any alcohol or drug abuse patient.[facility] the event this information is protected by the Federal Confidentiality of Alcohol and Drug Abuse Patient Records regulations: The Federal rules restrict any use of the information to criminally investigate or prosecute any alcohol or drug abuse patient.[facility] the event this information is protected by the Federal Confidentiality of Alcohol and Drug Abuse Patient Records regulations: The Federal rules restrict any use of the information to criminally investigate or prosecute any alcohol or drug abuse patient.[facility] the event this information is protected by the Federal Confidentiality of Alcohol and Drug Abuse Patient Records regulations: The Federal rules restrict any use of the information to criminally investigate or prosecute any alcohol or drug abuse patient.[facility] the event this information is protected by the Federal Confidentiality of Alcohol and Drug Abuse Patient Records regulations: The Federal rules restrict any use of the information to criminally investigate or prosecute any alcohol or drug abuse patient.[facility] the event this information is protected by the Federal Confidentiality of Alcohol and Drug Abuse Patient Records regulations: The Federal rules restrict any use of the information to criminally investigate or prosecute any alcohol or drug abuse patient.[facility] the event this information is protected by the Federal Confidentiality of Alcohol and Drug Abuse Patient Records regulations: The Federal rules restrict any use of the information to criminally investigate or prosecute any alcohol or drug abuse patient.[facility] the event this information is protected by the Federal Confidentiality of Alcohol and Drug Abuse Patient Records regulations: The Federal rules restrict any use of the information to criminally investigate or prosecute any alcohol or drug abuse patient.[facility] the event this information is protected by the Federal Confidentiality of Alcohol and Drug Abuse Patient Records regulations: The Federal rules restrict any use of the information to criminally investigate or prosecute any alcohol or drug abuse patient.[facility] CenterIn the event this information is protected by the Federal Confidentiality of Alcohol and Drug Abuse Patient Records regulations: The Federal rules restrict any use of the information to criminally investigate or prosecute any alcohol or drug abuse patient.[facility] CenterIn the event this information is protected by the Federal Confidentiality of Alcohol and Drug Abuse Patient Records regulations: The Federal rules restrict any use of the information to criminally investigate or prosecute any alcohol or drug abuse patient.[facility] CenterIn the event this information is protected by the Federal Confidentiality of Alcohol and Drug Abuse Patient Records regulations: The Federal rules restrict any use of the information to criminally investigate or prosecute any alcohol or drug abuse patient.[facility] CenterIn the event this information is protected by the Federal Confidentiality of Alcohol and Drug Abuse Patient Records regulations: The Federal rules restrict any use of the information to criminally investigate or prosecute any alcohol or drug abuse patient.[facility] CenterIn the event this information is protected by the Federal Confidentiality of Alcohol and Drug Abuse Patient Records regulations: The Federal rules restrict any use of the information to criminally investigate or prosecute any alcohol or drug abuse patient.[facility] CenterIn the event this information is protected by the Federal Confidentiality of Alcohol and Drug Abuse Patient Records regulations: The Federal rules restrict any use of the information to criminally investigate or prosecute any alcohol or drug abuse patient.[facility] CenterIn the event this information is protected by the Federal Confidentiality of Alcohol and Drug Abuse Patient Records regulations: The Federal rules restrict any use of the information to criminally investigate or prosecute any alcohol or drug abuse patient.[facility] CenterIn the event this information is protected by the Federal Confidentiality of Alcohol and Drug Abuse Patient Records regulations: The Federal rules restrict any use of the information to criminally investigate or prosecute any alcohol or drug abuse patient.[facility] CenterIn the event this information is protected by the Federal Confidentiality of Alcohol and Drug Abuse Patient Records regulations: The Federal rules restrict any use of the information to criminally investigate or prosecute any alcohol or drug abuse patient.[facility] CenterIn the event this information is protected by the Federal Confidentiality of Alcohol and Drug Abuse Patient Records regulations: The Federal rules restrict any use of the information to criminally investigate or prosecute any alcohol or drug abuse patient.[facility] CenterIn the event this information is protected by the Federal Confidentiality of Alcohol and Drug Abuse Patient Records regulations: The Federal rules restrict any use of the information to criminally investigate or prosecute any alcohol or drug abuse patient.[facility] CenterIn the event this information is protected by the Federal Confidentiality of Alcohol and Drug Abuse Patient Records regulations: The Federal rules restrict any use of the information to criminally investigate or prosecute any alcohol or drug abuse patient.[facility] CenterIn the event this information is protected by the Federal Confidentiality of Alcohol and Drug Abuse Patient Records regulations: The Federal rules restrict any use of the information to criminally investigate or prosecute any alcohol or drug abuse patient.[facility] CenterIn the event this information is protected by the Federal Confidentiality of Alcohol and Drug Abuse Patient Records regulations: The Federal rules restrict any use of the information to criminally investigate or prosecute any alcohol or drug abuse patient.[facility] CenterIn the event this information is protected by the Federal Confidentiality of Alcohol and Drug Abuse Patient Records regulations: The Federal rules restrict any use of the information to criminally investigate or prosecute any alcohol or drug abuse patient.[facility] CenterIn the event this information is protected by the Federal Confidentiality of Alcohol and Drug Abuse Patient Records regulations: The Federal rules restrict any use of the information to criminally investigate or prosecute any alcohol or drug abuse patient.[facility] CenterIn the event this information is protected by the Federal Confidentiality of Alcohol and Drug Abuse Patient Records regulations: The Federal rules restrict any use of the information to criminally investigate or prosecute any alcohol or drug abuse patient.[facility] CenterIn the event this information is protected by the Federal Confidentiality of Alcohol and Drug Abuse Patient Records regulations: The Federal rules restrict any use of the information to criminally investigate or prosecute any alcohol or drug abuse patient.[facility] CenterIn the event this information is protected by the Federal Confidentiality of Alcohol and Drug Abuse Patient Records regulations: The Federal rules restrict any use of the information to criminally investigate or prosecute any alcohol or drug abuse patient.[facility] CenterIn the event this information is protected by the Federal Confidentiality of Alcohol and Drug Abuse Patient Records regulations: The Federal rules restrict any use of the information to criminally investigate or prosecute any alcohol or drug abuse patient.[facility] CenterIn the event this information is protected by the Federal Confidentiality of Alcohol and Drug Abuse Patient Records regulations: The Federal rules restrict any use of the information to criminally investigate or prosecute any alcohol or drug abuse patient.[facility] CenterIn the event this information is protected by the Federal Confidentiality of Alcohol and Drug Abuse Patient Records regulations: The Federal rules restrict any use of the information to criminally investigate or prosecute any alcohol or drug abuse patient.[facility] CenterIn the event this information is protected by the Federal Confidentiality of Alcohol and Drug Abuse Patient Records regulations: The Federal rules restrict any use of the information to criminally investigate or prosecute any alcohol or drug abuse patient.[facility] CenterIn the event this information is protected by the Federal Confidentiality of Alcohol and Drug Abuse Patient Records regulations: The Federal rules restrict any use of the information to criminally investigate or prosecute any alcohol or drug abuse patient.[facility] CenterIn the event this information is protected by the Federal Confidentiality of Alcohol and Drug Abuse Patient Records regulations: The Federal rules restrict any use of the information to criminally investigate or prosecute any alcohol or drug abuse patient.[facility] CenterIn the event this information is protected by the Federal Confidentiality of Alcohol and Drug Abuse Patient Records regulations: The Federal rules restrict any use of the information to criminally investigate or prosecute any alcohol or drug abuse patient.[facility] CenterIn the event this information is protected by the Federal Confidentiality of Alcohol and Drug Abuse Patient Records regulations: The Federal rules restrict any use of the information to criminally investigate or prosecute any alcohol or drug abuse patient.[facility] CenterIn the event this information is protected by the Federal Confidentiality of Alcohol and Drug Abuse Patient Records regulations: The Federal rules restrict any use of the information to criminally investigate or prosecute any alcohol or drug abuse patient.[facility] CenterIn the event this information is protected by the Federal Confidentiality of Alcohol and Drug Abuse Patient Records regulations: The Federal rules restrict any use of the information to criminally investigate or prosecute any alcohol or drug abuse patient.[facility] CenterIn the event this information is protected by the Federal Confidentiality of Alcohol and Drug Abuse Patient Records regulations: The Federal rules restrict any use of the information to criminally investigate or prosecute any alcohol or drug abuse patient.[facility] CenterIn the event this information is protected by the Federal Confidentiality of Alcohol and Drug Abuse Patient Records regulations: The Federal rules restrict any use of the information to criminally investigate or prosecute any alcohol or drug abuse patient.[facility] CenterIn the event this information is protected by the Federal Confidentiality of Alcohol and Drug Abuse Patient Records regulations: The Federal rules restrict any use of the information to criminally investigate or prosecute any alcohol or drug abuse patient.[facility] CenterIn the event this information is protected by the Federal Confidentiality of Alcohol and Drug Abuse Patient Records regulations: The Federal rules restrict any use of the information to criminally investigate or prosecute any alcohol or drug abuse patient.[facility] CenterIn the event this information is protected by the Federal Confidentiality of Alcohol and Drug Abuse Patient Records regulations: The Federal rules restrict any use of the information to criminally investigate or prosecute any alcohol or drug abuse patient.[facility] CenterIn the event this information is protected by the Federal Confidentiality of Alcohol and Drug Abuse Patient Records regulations: The Federal rules restrict any use of the information to criminally investigate or prosecute any alcohol or drug abuse patient.[facility] CenterIn the event this information is protected by the Federal Confidentiality of Alcohol and Drug Abuse Patient Records regulations: The Federal rules restrict any use of the information to criminally investigate or prosecute any alcohol or drug abuse patient.[facility] CenterIn the event this information is protected by the Federal Confidentiality of Alcohol and Drug Abuse Patient Records regulations: The Federal rules restrict any use of the information to criminally investigate or prosecute any alcohol or drug abuse patient.[facility] CenterIn the event this information is protected by the Federal Confidentiality of Alcohol and Drug Abuse Patient Records regulations: The Federal rules restrict any use of the information to criminally investigate or prosecute any alcohol or drug abuse patient.[facility] CenterIn the event this information is protected by the Federal Confidentiality of Alcohol and Drug Abuse Patient Records regulations: The Federal rules restrict any use of the information to criminally investigate or prosecute any alcohol or drug abuse patient.[facility] CenterIn the event this information is protected by the Federal Confidentiality of Alcohol and Drug Abuse Patient Records regulations: The Federal rules restrict any use of the information to criminally investigate or prosecute any alcohol or drug abuse patient.[facility] CenterIn the event this information is protected by the Federal Confidentiality of Alcohol and Drug Abuse Patient Records regulations: The Federal rules restrict any use of the information to criminally investigate or prosecute any alcohol or drug abuse patient.[facility] CenterIn the event this information is protected by the Federal Confidentiality of Alcohol and Drug Abuse Patient Records regulations: The Federal rules restrict any use of the information to criminally investigate or prosecute any alcohol or drug abuse patient.[facility] CenterIn the event this information is protected by the Federal Confidentiality of Alcohol and Drug Abuse Patient Records regulations: The Federal rules restrict any use of the information to criminally investigate or prosecute any alcohol or drug abuse patient.[facility] CenterIn the event this information is protected by the Federal Confidentiality of Alcohol and Drug Abuse Patient Records regulations: The Federal rules restrict any use of the information to criminally investigate or prosecute any alcohol or drug abuse patient.[facility] CenterIn the event this information is protected by the Federal Confidentiality of Alcohol and Drug Abuse Patient Records regulations: The Federal rules restrict any use of the information to criminally investigate or prosecute any alcohol or drug abuse patient.[facility] CenterIn the event this information is protected by the Federal Confidentiality of Alcohol and Drug Abuse Patient Records regulations: The Federal rules restrict any use of the information to criminally investigate or prosecute any alcohol or drug abuse patient.[facility] CenterIn the event this information is protected by the Federal Confidentiality of Alcohol and Drug Abuse Patient Records regulations: The Federal rules restrict any use of the information to criminally investigate or prosecute any alcohol or drug abuse patient.[facility] CenterIn the event this information is protected by the Federal Confidentiality of Alcohol and Drug Abuse Patient Records regulations: The Federal rules restrict any use of the information to criminally investigate or prosecute any alcohol or drug abuse patient.[facility] CenterIn the event this information is protected by the Federal Confidentiality of Alcohol and Drug Abuse Patient Records regulations: The Federal rules restrict any use of the information to criminally investigate or prosecute any alcohol or drug abuse patient.[facility] CenterIn the event this information is protected by the Federal Confidentiality of Alcohol and Drug Abuse Patient Records regulations: The Federal rules restrict any use of the information to criminally investigate or prosecute any alcohol or drug abuse patient.[facility] CenterIn the event this information is protected by the Federal Confidentiality of Alcohol and Drug Abuse Patient Records regulations: The Federal rules restrict any use of the information to criminally investigate or prosecute any alcohol or drug abuse patient.[facility] CenterIn the event this information is protected by the Federal Confidentiality of Alcohol and Drug Abuse Patient Records regulations: The Federal rules restrict any use of the information to criminally investigate or prosecute any alcohol or drug abuse patient.[facility] CenterIn the event this information is protected by the Federal Confidentiality of Alcohol and Drug Abuse Patient Records regulations: The Federal rules restrict any use of the information to criminally investigate or prosecute any alcohol or drug abuse patient.[facility] CenterIn the event this information is protected by the Federal Confidentiality of Alcohol and Drug Abuse Patient Records regulations: The Federal rules restrict any use of the information to criminally investigate or prosecute any alcohol or drug abuse patient.[facility] CenterIn the event this information is protected by the Federal Confidentiality of Alcohol and Drug Abuse Patient Records regulations: The Federal rules restrict any use of the information to criminally investigate or prosecute any alcohol or drug abuse patient.[facility] CenterIn the event this information is protected by the Federal Confidentiality of Alcohol and Drug Abuse Patient Records regulations: The Federal rules restrict any use of the information to criminally investigate or prosecute any alcohol or drug abuse patient.[facility] CenterIn the event this information is protected by the Federal Confidentiality of Alcohol and Drug Abuse Patient Records regulations: The Federal rules restrict any use of the information to criminally investigate or prosecute any alcohol or drug abuse patient.[facility] CenterIn the event this information is protected by the Federal Confidentiality of Alcohol and Drug Abuse Patient Records regulations: The Federal rules restrict any use of the information to criminally investigate or prosecute any alcohol or drug abuse patient.[facility] CenterIn the event this information is protected by the Federal Confidentiality of Alcohol and Drug Abuse Patient Records regulations: The Federal rules restrict any use of the information to criminally investigate or prosecute any alcohol or drug abuse patient.[facility] CenterIn the event this information is protected by the Federal Confidentiality of Alcohol and Drug Abuse Patient Records regulations: The Federal rules restrict any use of the information to criminally investigate or prosecute any alcohol or drug abuse patient.[facility] CenterIn the event this information is protected by the Federal Confidentiality of Alcohol and Drug Abuse Patient Records regulations: The Federal rules restrict any use of the information to criminally investigate or prosecute any alcohol or drug abuse patient.[facility] CenterIn the event this information is protected by the Federal Confidentiality of Alcohol and Drug Abuse Patient Records regulations: The Federal rules restrict any use of the information to criminally investigate or prosecute any alcohol or drug abuse patient.[facility] CenterIn the event this information is protected by the Federal Confidentiality of Alcohol and Drug Abuse Patient Records regulations: The Federal rules restrict any use of the information to criminally investigate or prosecute any alcohol or drug abuse patient.[facility] CenterIn the event this information is protected by the Federal Confidentiality of Alcohol and Drug Abuse Patient Records regulations: The Federal rules restrict any use of the information to criminally investigate or prosecute any alcohol or drug abuse patient.[facility] CenterIn the event this information is protected by the Federal Confidentiality of Alcohol and Drug Abuse Patient Records regulations: The Federal rules restrict any use of the information to criminally investigate or prosecute any alcohol or drug abuse patient.[facility] CenterIn the event this information is protected by the Federal Confidentiality of Alcohol and Drug Abuse Patient Records regulations: The Federal rules restrict any use of the information to criminally investigate or prosecute any alcohol or drug abuse patient.[facility] CenterIn the event this information is protected by the Federal Confidentiality of Alcohol and Drug Abuse Patient Records regulations: The Federal rules restrict any use of the information to criminally investigate or prosecute any alcohol or drug abuse patient.[facility] CenterIn the event this information is protected by the Federal Confidentiality of Alcohol and Drug Abuse Patient Records regulations: The Federal rules restrict any use of the information to criminally investigate or prosecute any alcohol or drug abuse patient.[facility] CenterIn the event this information is protected by the Federal Confidentiality of Alcohol and Drug Abuse Patient Records regulations: The Federal rules restrict any use of the information to criminally investigate or prosecute any alcohol or drug abuse patient.[facility] CenterIn the event this information is protected by the Federal Confidentiality of Alcohol and Drug Abuse Patient Records regulations: The Federal rules restrict any use of the information to criminally investigate or prosecute any alcohol or drug abuse patient.[facility] CenterIn the event this information is protected by the Federal Confidentiality of Alcohol and Drug Abuse Patient Records regulations: The Federal rules restrict any use of the information to criminally investigate or prosecute any alcohol or drug abuse patient.[facility] CenterIn the event this information is protected by the Federal Confidentiality of Alcohol and Drug Abuse Patient Records regulations: The Federal rules restrict any use of the information to criminally investigate or prosecute any alcohol or drug abuse patient.[facility] CenterIn the event this information is protected by the Federal Confidentiality of Alcohol and Drug Abuse Patient Records regulations: The Federal rules restrict any use of the information to criminally investigate or prosecute any alcohol or drug abuse patient.[facility] CenterIn the event this information is protected by the Federal Confidentiality of Alcohol and Drug Abuse Patient Records regulations: The Federal rules restrict any use of the information to criminally investigate or prosecute any alcohol or drug abuse patient.[facility] CenterIn the event this information is protected by the Federal Confidentiality of Alcohol and Drug Abuse Patient Records regulations: The Federal rules restrict any use of the information to criminally investigate or prosecute any alcohol or drug abuse patient.[facility] Reason for Visit (unrecogniz ed section and [...] CT HEAD/BRAIN W/O CONTRAST MATERIAL Jenna Jim, [employer]ISSI[employer] MECH[employer]IC [address] [place] [address] Ct Imaging Referral ID Status Reason Start Date Expiration Date V isits Requested Visits Authorized [id number] Closed Auto-Generat ed Referral Patient Cleared - [...] Is also having head pain Reason Comments [facility] Reason Comments Results Reason Comments Consult Colonoscopy, anemia, no prior colonoscopy Specialty Diagnoses / Procedures Referred By Carlos neff Referred To Contact General Surgery Diagnoses Anemia, unspecified type Procedures CONSULT TO GENERAL SURGERY OFFICE/OUTPATIENT NEW HIGH MDM 60-74 MINUTES Martha Boston PA-C [address] [place] [address] Referral ID Status Reason Start Date Expiration Date Visits Requested Visits Authorized [id number] Pending Review PCP Requested Referral 2 06/26/2023 [...] NEW HIGH MDM 60-74 MINUTES Jenna Jim, [employer] MECH[employer]IC [address] [place] [address] Referral ID Status Reason Start Date Expiration Date Visits Requested Visits Authorized [id number] Pending Review PCP Requested Referral 02/22/2022 02/22/2023 [...] & PELVIS W/CONTRAST Martha Boston PA-C [address] [place] [address] [place] [id number] Referral ID Status Reason Start Date Expiration Date V isits Requested Visits Authorized [id number] Closed Auto-Generate d Referral 07/09/2022 08/08/2022 2 2 Reason Comments Radiology US Specialty Diagnoses / Procedures Referred By Contac t Referred To Contact US IMAGING Diagnoses Abnormal weight loss Procedures US ABD RT UPPER QUADRANT US ABDOMINAL REAL TIME W/IMAGE LIMITED Martha Boston PA-C [address] [place] [address] [place] [address] Referral ID Status Reason Start Date Expiration Date V isits Requested Visits Authorized [id number] Closed Auto-Generate d Referral 06/25/2022 07/25/2023 1 1 Reason Comments ER Discharge Summary X-ray, H&P Reason Comments Outside Cardiology Cardiac Cath, Echo Reason Comments ER Discharge Summary X-ray Care Teams (unrecognized sec tion and content) Traffic Law Attorney Relationship Specialty Start Date End Date Nadir Grady MD [address] [place] [address] PCP - General Family Practice 08[facility]04[facility] [address] [place] [address] Pharmacist Pharmacy 10/20/20 [facility] [address] [place] [address] Pharmacist Pharmacy 03/15/21 Traffic Law Attorney Relationship Specialty Start Date End Date Nadir Grady MD [address] [place] [address] PCP - General Family Practice 08/04/15 [facility] [address] [place] [address] Pharmacist Pharmacy 10/20/20 [facility] [facility] [address] [place] [address] Pharmacist Pharmacy 03/15/21 Traffic Law Attorney Relationship Specialty Start Date End Date Nadir Grady MD [address] [place] [address] PCP - General Family Practice 08/04/15 ToddArnaud vegaTwo [facility] [address] [facility] [place] [address] Pharmacist Pharmacy 10/20/20 TucsonKaren florTwo [facility] [address] [facility] [address] Pharmacist Pharmacy 03/15/21 Traffic Law Attorney Relationship Specialty Start Date End Date Nadir Grady MD [address] [facility] [address] PCP - General Family Practice 08/04/15 Arnaud HarrellTwo [facility] [address] [facility] [address] Pharmacist Pharmacy 10/20/20 Feliz, KarenTwo [facility] [address] [facility] [address] Pharmacist Pharmacy 03/15/21 Traffic Law Attorney Relationship Specialty Start Date End Date Nadir Grady MD [address] [facility] [address] PCP - General Family Practice 08/04/15 Arnaud [facility]rell[facility] [address] [facility] [address] Pharmacist Pharmacy 10/20/20 FelizKaren florTwo [facility] [address] [facility] [place] [address] Pharmacist Pharmacy 03/15/21 Yolanda Dean (Camelia) Jemma Castro [facility] [place] [address] Referring Pulmonary and Critical Care Medicine 02/07/22 Traffic Law Attorney Relationship Specialty Start Date End Date Nadir Grady MD [address] [facility] [address] PCP - General Family Practice 08/04/15 [facility] Briankati[facility] [address] [facility] [place] [address] Pharmacist Pharmacy 10/20/20 Feliz KarenTwo [facility] [address] [facility] [place] [address] Pharmacist Pharmacy 03/15/21 Yolanda Dean (Pa) [address] Gloria [facility] [address] Referring Pulmonary and Critical Care Medicine 02/07/22 Traffic Law Attorney Relationship Specialty Start Date End Date Nadir Grady MD [address] [facility] [place] [address] PCP - General Family Practice 08/04/15 Arnaud [facility]rell[facility] [address] [facility] [place] [address] Pharmacist Pharmacy 10/20/20 Karen PiperTwo [facility] [address] [facility] [place] [address] Pharmacist Pharmacy 03/15/21 Yolanda Dean (Pa) [address] Moodyjohn paul [facility] [place] [address] Referring Pulmonary and Critical Care Medicine 02/07/22 Traffic Law Attorney Relationship Specialty Start Date End Date Nadir Grady MD [address] [facility] [place] [address] PCP - General Family Practice 08/04/15 ToddBrian vegakatiTwo [facility] [address] [facility] [place] [address] Pharmacist Pharmacy 10/20/20 Karen Piper[facility] [address] [facility] [place] [address] Pharmacist Pharmacy 03/15/21 Yolanda Dean (Pa) [address] [facility] Sadafnew sunrise [place] [address] Referring Pulmonary and Critical Care Medicine 02/07/22 Traffic Law Attorney Relationship Specialty Start Date End Date Nadir Grady MD [address] [facility] [place] [address] PCP - General Family Practice 08/04/15 Arnaud [facility]rell[facility] [address] [facility] [place] [address] Pharmacist Pharmacy 10/20/20 [facility]sonKarenTwo [facility] [address] [place] [address] Pharmacist Pharmacy 03/15/21 Yolanda Dean (Pa) [address] [facility] [place] [address] Referring Pulmonary and Critical Care Medicine 02/07/22 Traffic Law Attorney Relationship Specialty Start Date End Date Nadir Grady MD [address] [facility] [place] [address] PCP - General Family Practice 08/04/15 Arnaud [facility] [address] [facility] [place] [address] Pharmacist Pharmacy 10/20/20 FelizKarenTwo [facility] [address] [facility] [place] [address] Pharmacist Pharmacy 03/15/21 Yolanda Dean (Pa) [address] [facility] [place] [address] Referring Pulmonary and Critical Care Medicine 02/07/22 Traffic Law Attorney Relationship Specialty Start Date End Date Nadir Grady MD [address] [facility] [place] [address] PCP - General Family Practice 08/04/15 ToddArnaud vegaTwo [facility] [address] [facility] [place] [address] Pharmacist Pharmacy 10/20/20 [place] KarenTwo [facility] [address] [facility] [place] [address] Pharmacist Pharmacy 03/15/21 Yolanda Dean (Pa) [address] [facility] [place] [address] Referring Pulmonary and Critical Care Medicine 02/07/22 Traffic Law Attorney Relationship Specialty Start Date End Date Nadir Grady MD [address] [facility] [place] [address] PCP - General Family Practice 08/04/15 ToddArnaud vegaTwo [facility] [address] [facility] [place] [address] Pharmacist Pharmacy 10/20/20 [place] KarenTwo [facility] [address] [facility] [place] [address] Pharmacist Pharmacy 03/15/21 Yolanda Dean (Pa) [address] Castro [facility] [place] [address] Referring Pulmonary and Critical Care Medicine 02/07/22 Traffic Law Attorney Relationship Specialty Start Date End Date Nadir Grady MD [address] [facility] [place] [address] PCP - General Family Practice 08/04/15 DubArnaud vegaTwo [facility] [address] [facility] [place] [address] Pharmacist Pharmacy 10/20/20 Karen PiperTwo [facility] [address] [facility] [place] [address] Pharmacist Pharmacy 03/15/21 Yolanda Dean (Pa) [address] [facility] [address] Referring Pulmonary and Critical Care Medicine 02/07/22 Traffic Law Attorney Relationship Specialty Start Date End Date Nadir Grady MD [address] [facility] [place] [address] PCP - General Family Practice 08/04/15 Arnaud [facility]rell[facility] [address] [facility] [place] [address] Pharmacist Pharmacy 10/20/20 Karen Piper[facility] [address] [facility] [place] [address] Pharmacist Pharmacy 03/15/21 Yolanda Dean (Pa) [address] Castro [facility] [place] [address] Referring Pulmonary and Critical Care Medicine 02/07/22 Traffic Law Attorney Relationship Specialty Start Date End Date Nadir Grady MD [address] [facility] [place] [address] PCP - General Family Practice 08/04/15 Toddsilvia ArnaudTwo [facility] [address] [facility] [place] [address] Pharmacist Pharmacy 10/20/20 Karen Piper[facility] [address] [facility] [place] [address] Pharmacist Pharmacy 03/15/21 Yolanda Dean (Pa) [address] [facility] [place] [address] Referring Pulmonary and Critical Care Medicine 02/07/22 Traffic Law Attorney Relationship Specialty Start Date End Date Nadir Grady MD [address] [facility] [place] [address] PCP - General Family Practice 08/04/[address] [facility] [address] [facility] [place] [address] Pharmacist Pharmacy 10/20/20 [place] KarenT[facility]ootso[facility] [address] [facility] [place] [address] Pharmacist Pharmacy 03/15/21 Yolanda Dean (Pa) [address] [place] [address] Referring Pulmonary and Critical Care Medicine 02/07/22 Traffic Law Attorney Relationship Specialty Start Date End Date Nadir Grady MD [address] [facility] [place] [address] PCP - General Family Practice 08/04/[address] [facility] [address] [facility] [place] [address] Pharmacist Pharmacy 10/20/20 Feliz KarenTwo [facility] [address] [facility] [place] [address] Pharmacist Pharmacy 03/15/21 Yolanda Dean (Pa) [address] [facility] Gloria [facility] [place] [address] Referring Pulmonary and Critical Care Medicine 02/07/22 Traffic Law Attorney Relationship Specialty Start Date End Date Nadir Grady MD [address] [facility] [place] [address] PCP - General Family Practice 08/04/15 [facility] HospitalArnaud vegaTwo [facility] [address] [facility] [place] [address] Pharmacist Pharmacy 10/20/20 FelizKaren florTwo [facility] [address] [facility] [place] [address] Pharmacist Pharmacy 03/15/21 Yolanda Dean (Pa) [address] [facility] [place] [address] Referring Pulmonary and Critical Care Medicine 02/07/22 Traffic Law Attorney Relationship Specialty Start Date End Date Nadir Grady MD [address] [facility] [place] [address] PCP - General Family Practice 08/04/15 Arnaud Harrell[facility] [address] [facility] [place] [address] Pharmacist Pharmacy 10/20/20 Karen PiperTwo [facility] [address] [facility] [place] [address] Pharmacist Pharmacy 03/15/21 Yolanda Dean (Pa) [address] [place] [address] Referring Pulmonary and Critical Care Medicine 02/07/22 Traffic Law Attorney Relationship Specialty Start Date End Date Nadir Grady MD [address] [facility] [place] [address] PCP - General Family Medicine 08/04/[address] [facility] [address] [facility] [place] [address] Pharmacist Pharmacy 10/20/20 TucsonKarenTwo [facility] [address] [place] [address] Pharmacist Pharmacy 03/15/21 Yolanda Dean (Pa) [address] [facility] [place] [address] Referring Pulmonary and Critical Care Medicine 02/07/22 Traffic Law Attorney Relationship Specialty Start Date End Date Nadir Grady MD [address] [facility] [place] [address] PCP - General Family Medicine 08/04/15 [facility] HospitalArnaud vega[facility] [address] [facility] [place] [address] Pharmacist Pharmacy 10/20/20 TucsonKarenTwo [facility] [address] [facility] [place] [address] Pharmacist Pharmacy 03/15/21 Yolanda Dean (Pa) [address] john paul [facility] Sadafnew sunrise regional [place] [address] Referring Pulmonary and Critical Care Medicine 02/07/22 Traffic Law Attorney Relationship Specialty Start Date End Date Nadir Grady MD [address] [facility] [place] [address] PCP - General Family Medicine 08/04/15 Arnaud Harrell[facility] [address] [facility] [place] [address] Pharmacist Pharmacy 10/20/20 TucsonKarenTwo [facility] [address] [facility] [place] [address] Pharmacist Pharmacy 03/15/21 Yolanda Dean (Pa) [address] Castro [facility] [place] [place] [address] Referring Pulmonary and Critical Care Medicine 02/07/22 Traffic Law Attorney Relationship Specialty Start Date End Date Nadir Grady MD [address] [facility] [place] [address] PCP - General Family Medicine 08/04/15 [facility] HospitalArnaud vegaTwo [facility] [address] [facility] [place] [address] Pharmacist Pharmacy 10/20/20 [place] KarenTwo [facility] [address] [facility] [place] [address] Pharmacist Pharmacy 03/15/21 Yolanda Dean (Pa) [address] [facility] [place] [address] Referring Pulmonary and Critical Care Medicine 02/07/22 Traffic Law Attorney Relationship Specialty Start Date End Date Nadir Grady MD [address] [facility] [place] [address] PCP - General Family Medicine 08/04/15 Toddsilvia ArnaudTwo [facility] [address] [facility] [place] [address] Pharmacist Pharmacy 10/20/20 Feliz KarenTwo [facility] [address] [facility] [place] [address] Pharmacist Pharmacy 03/15/21 Yolanda Dean (Pa) [address] [facility] [place] [address] Referring Pulmonary and Critical Care Medicine 02/07/22 Traffic Law Attorney Relationship Specialty Start Date End Date Nadir Grady MD [address] [facility] [place] [address] PCP - General Family Medicine 08/04/15 Arnaud Harrell, [facility] [address] [place] [address] Pharmacist Pharmacy 10/20/20 Karen iPperTwo [facility] [address] [place] [address] Pharmacist Pharmacy 03/15/21 Yolanda Dean (Pa) [address] [facility] [place] [address] Referring Pulmonary and Critical Care Medicine 02/07/22 Traffic Law Attorney Relationship Specialty Start Date End Date Nadir Grady MD [address] [facility] [place] [address] PCP - General Family Medicine 08/04/15 Arnaud [facility]rell[facility] [address] [facility] [place] [address] Pharmacist Pharmacy 10/20/20 Karen PiperTwo [facility] [address] [facility] [place] [address] Pharmacist Pharmacy 03/15/21 Yolanda Dean (Pa) [address] Castro [facility] [place] [address] Referring Pulmonary and Critical Care Medicine 02/07/22 Traffic Law Attorney Relationship Specialty Start Date End Date Nadir Grady MD [address] [facility] [place] [address] PCP - General Family Medicine 08/04/15 Arnaud Harrell, [facility] [address] [facility] [place] [address] Pharmacist Pharmacy 10/20/20 Karen Piper[facility] [address] [facility] [place] [address] Pharmacist Pharmacy 03/15/21 Yolanda Dean (Pa) [address] [facility] [place] [address] Referring Pulmonary and Critical Care Medicine 02/07/22 Traffic Law Attorney Relationship Specialty Start Date End Date Nadir Grady MD [address] [facility] [place] [address] PCP - General Family Medicine 08/04/15 Arnaud [facility]rell[facility] [address] [facility] [place] [address] Pharmacist Pharmacy 10/20/20 [place], [facility]Two [facility] [address] [facility] [place] [address] Pharmacist Pharmacy 03/15/21 Yolanda Dean (Pa) [address] [place] [address] Referring Pulmonary and Critical Care Medicine 02/07/22 Traffic Law Attorney Relationship Specialty Start Date End Date Nadir Grady MD [address] [facility] [place] [address] PCP - General Family Medicine 08/04/15 Arnaud [facility]rell[facility] [address] [facility] [place] [address] Pharmacist Pharmacy 10/20/20 Feliz KarenTwo [facility] [address] [facility] [place] [address] Pharmacist Pharmacy 03/15/21 Yolanda Dean (Pa) [address] [facility] Hospital[facility] paul [facility] [place] [address] Referring Pulmonary and Critical Care Medicine 02/07/22 Traffic Law Attorney Relationship Specialty Start Date End Date Nadir Grady MD [address] [facility] [place] [address] PCP - General Family Medicine 08/04/15 Arnaud [facility]rell[facility] [address] [facility] [place] [address] Pharmacist Pharmacy 10/20/20 Karen Piper[facility] [address] [facility] [place] [address] Pharmacist Pharmacy 03/15/21 Yolanda Dean (Pa) [address] [facility] [place] [address] Referring Pulmonary and Critical Care Medicine 02/07/22 Traffic Law Attorney Relationship Specialty Start Date End Date Nadir Grady MD [address] [facility] [place] [address] PCP - General Family Medicine 08/04/15 Arnaud [facility]rell[facility] [address] [facility] [place] [address] Pharmacist Pharmacy 10/20/20 Karen [facility]per[facility] [address] [facility] [place] [address] Pharmacist Pharmacy 03/15/21 Yolanda Dean (Pa) [address] [facility] [place] [address] Referring Pulmonary and Critical Care Medicine 02/07/22 Traffic Law Attorney Relationship Specialty Start Date End Date Nadir Grady MD [address] [facility] [address] PCP - General Family Medicine 08/04/15 [facility]ud vega[facility] [address] [facility] [place] [address] Pharmacist Pharmacy 10/20/20 Karen [facility]per[facility] [address] [place] [address] Pharmacist Pharmacy 03/15/21 Yolanda Dean (Pa) [address] [facility] [place] [address] Referring Pulmonary and Critical Care Medicine 02/07/22 Traffic Law Attorney Relationship Specialty Start Date End Date Nadir Grady MD [address] [facility] [place] [address] PCP - General Family Medicine 08/04/15 Arnaud [facility]rell[facility] [address] [facility] [place] [address] Pharmacist Pharmacy 10/20/20 Karen [facility]per[facility] [address] [facility] [place] [address] Pharmacist Pharmacy 03/15/21 Yolanda Dean (Pa) [address] [facility] aSdafnew sunrise regional [place] [address] Referring Pulmonary and Critical Care Medicine 02/07/22 Traffic Law Attorney Relationship Specialty Start Date End Date Nadir Grady MD [address] [facility] [place] [address] PCP - General Family Medicine 08/04/15 Sharri Briankati, [facility] [address] [facility] [place] [address] Pharmacist Pharmacy 10/20/20 Karen [facility]per[facility] [address] [facility] [place] [address] Pharmacist Pharmacy 03/15/21 Yolanda Dean (Pa) [address] [facility] [place] [address] Referring Pulmonary and Critical Care Medicine 02/07/22 Traffic Law Attorney Relationship Specialty Start Date End Date Nadir Grady MD [address] [facility] [place] [address] PCP - General Family Medicine 08/04/15 Ar[facility]ud [facility] [address] [facility] [place] [address] Pharmacist Pharmacy 10/20/20 [place] KarenTwo [facility] [address] [facility] [place] [address] Pharmacist Pharmacy 03/15/21 Yolanda Dean (Pa) [address] [facility] [place] [place] [address] Referring Pulmonary and Critical Care Medicine 02/07/22 Traffic Law Attorney Relationship Specialty Start Date End Date Nadir Grady MD [address] [facility] [place] [address] PCP - General Family Medicine 08/04/15 Ar[facility]ud [facility] [address] [facility] [place] [address] Pharmacist Pharmacy 10/20/20 Karen Piper[facility] [address] [facility] [place] [address] Pharmacist Pharmacy 03/15/21 Yolanda Dean (Pa) [address] [facility] [place] [address] Referring Pulmonary and Critical Care Medicine 02/07/22 Traffic Law Attorney Relationship Specialty Start Date End Date Nadir Grady MD [address] [facility] [place] [address] PCP - General Family Medicine 08/04/15 ToddArnaud vega, [facility] [address] [facility] [place] [address] Pharmacist Pharmacy 10/20/20 Karen Piper, [facility] [address] [facility] [address] Pharmacist Pharmacy 03/15/21 Yolanda Dean (Pa) [address] [facility] [place] [address] Referring Pulmonary and Critical Care Medicine 02/07/22 Traffic Law Attorney Relationship Specialty Start Date End Date Nadir Grady MD [address] [facility] [place] [address] PCP - General Family Medicine 08/04/15 ToddArnaud vegaTwo [facility] [address] [facility] [place] [address] Pharmacist Pharmacy 10/20/20 Karen [facility] [address] [facility] [place] [address] Pharmacist Pharmacy 03/15/21 Yolanda Dean (Pa) [address] [place] [address] Referring Pulmonary and Critical Care Medicine 02/07/22 Traffic Law Attorney Relationship Specialty Start Date End Date Nadir Grady MD [address] [facility] [place] [address] PCP - General Family Medicine 08/04/15 ToddrAnaud vega, [facility] [address] [facility] [place] [address] Pharmacist Pharmacy 10/20/20 Karen Piper, [facility] [address] [facility] [place] [address] Pharmacist Pharmacy 03/15/21 Yolanda Dean (Pa) [address] [facility] [place] [address] Referring Pulmonary and Critical Care Medicine 02/07/22 Traffic Law Attorney Relationship Specialty Start Date End Date Nadir Grady MD [address] [facility] [place] [address] PCP - General Family Medicine 08/04/15 [facility]ud [facility] [address] [facility] [place] [address] Pharmacist Pharmacy 10/20/20 TucsonKaren florTwo [facility] [address] [facility] [place] [address] Pharmacist Pharmacy 03/15/21 Yolanda Dean (Pa) [address] john paul [facility] [place] [place] [address] Referring Pulmonary and Critical Care Medicine 02/07/22 Traffic Law Attorney Relationship Specialty Start Date End Date Nadir Grady MD [address] [facility] [place] [address] PCP - General Family Medicine 08/04/15 Arnaud Harrell, [facility] [address] [facility] [address] Pharmacist Pharmacy 10/20/20 Karen [facility] [address] [facility] [place] [address] Pharmacist Pharmacy 03/15/21 Yolanda Dean (Pa) [address] [facility] [place] [address] Referring Pulmonary and Critical Care Medicine 02/07/22 Traffic Law Attorney Relationship Specialty Start Date End Date Nadir Grady MD [address] [facility] [place] [address] PCP - General Family Medicine 08/04/15 [facility] [address] [place] [address] Pharmacist Pharmacy 10/20/20 Feliz KarenTwo [facility] [address] [facility] [place] [address] Pharmacist Pharmacy 03/15/21 Yolanda Dean (Pa) [address] [facility] [place] [address] Referring Pulmonary and Critical Care Medicine 02/07/22 Traffic Law Attorney Relationship Specialty Start Date End Date Nadir Grady MD [address] [facility] [address] PCP - General Family Medicine 08/04/15 [facility] [address] [facility] [place] [address] Pharmacist Pharmacy 10/20/20 Karen [facility] [address] [facility] [place] [address] Pharmacist Pharmacy 03/15/21 Yolanda Dean (Pa) [address] [facility] [place] [address] Referring Pulmonary and Critical Care Medicine 02/07/22 Traffic Law Attorney Relationship Specialty Start Date End Date Nadir Grady MD [address] [facility] [place] [address] PCP - General Family Medicine 08/04/15 [facility]ud [facility] [address] [facility] [address] Pharmacist Pharmacy 10/20/20 Feliz, Karen, [facility] [address] [place] [address] Pharmacist Pharmacy 03/15/21 Yolanda Dean (Pa) [address] [place] [address] Referring Pulmonary and Critical Care Medicine 02/07/22 Traffic Law Attorney Relationship Specialty Start Date End Date Nadir Grady MD [address] [place] [address] PCP - General Family Medicine 08/04/15 [facility]ud [facility] [address] [place] [address] Pharmacist Pharmacy 10/20/20 Feliz [facility] [address] [place] [address] Pharmacist Pharmacy 03/15/21 Yolanda Dean (Camelia) [address] [place] [address] Referring Pulmonary and Critical Care Medicine 02/07/22 Traffic Law Attorney Relationship Specialty Start Date End Date Nadir Grady MD [address] [place] [address] PCP - General Family Medicine 08/04/15 Arnaud Harrell, [facility] [address] [place] [address] Pharmacist Pharmacy 10/20/20 Feliz Karen, [facility] [address] [place] [address] Pharmacist Pharmacy 03/15/21 Yolanda Dean (Camelia) [address] [facility] [place] [address] Referring Pulmonary and Critical Care Medicine 02/07/22 Traffic Law Attorney Relationship Specialty Start Date End Date Nadir Grady MD [address] [place] [address] PCP - General Family Medicine 08/04/15 [facility] [address] [facility] [place] [address] Pharmacist Pharmacy 10/20/20 [facility] [address] [facility] [place] [address] Pharmacist Pharmacy 03/15/21 Yolanda Dean (Pa) [address] [facility] [place] [address] Referring Pulmonary and Critical Care Medicine 02/07/22 Traffic Law Attorney Relationship Specialty Start Date End Date Nadir Grady MD [address] [facility] [place] [address] PCP - General Family Medicine 08/04/15 Arnaud Harrell, [facility] [address] [place] [address] Pharmacist Pharmacy 10/20/20 Karen [facility] [address] [facility] [place] [address] Pharmacist Pharmacy 03/15/21 Yolanda Dean PA [address] [facility] [place] [address] Referring Pulmonary and Critical Care Medicine 02/07/22 Traffic Law Attorney Relationship Specialty Start Date End Date Nadir Grady MD [address] [facility] [place] [address] PCP - General Family Medicine 08/04/15 [facility] [address] [place] [address] Pharmacist Pharmacy 10/20/20 [facility] [address] [place] [address] Pharmacist Pharmacy 03/15/21 Yolanda Dean PA [address] [place] [address] Referring Pulmonary and Critical Care Medicine 02/07/22 Traffic Law Attorney Relationship Specialty Start Date End Date Nadir Grady MD [address] [place] [address] PCP - General Family Medicine 08/04/15 [facility] [address] [place] [address] Pharmacist Pharmacy 10/20/20 [facility] [address] [place] [address] Pharmacist Pharmacy 03/15/21 Yolanda Dean PA [address] [place] [address] Referring Pulmonary and Critical Care Medicine 02/07/22 Traffic Law Attorney Relationship Specialty Start Date End Date Nadir Grady MD [address] [place] [address] PCP - General Family Medicine 08/04/15 [facility] [address] [place] [address] Pharmacist Pharmacy 10/20/20 [facility] [address] [place] [address] Pharmacist Pharmacy 03/15/21 Yolanda Dean PA [address] [place] [address] Referring Pulmonary and Critical Care Medicine 02/07/22 Traffic Law Attorney Relationship Specialty Start Date End Date Nadir Grady MD [address] [place] [address] PCP - General Family Medicine 08/04/15 Sharri [facility] [address] [place] [address] Pharmacist Pharmacy 10/20/20 [facility] [address] [place] [address] Pharmacist Pharmacy 03/15/21 Y[address] Dean PA [address] [place] [address] Referring Pulmonary and Critical Care Medicine 02/07/22 Traffic Law Attorney Relationship Specialty Start Date End Date Nadir Grady MD [address] [place] [address] PCP - General Family Medicine 08/04/15 Sharri Briankati, [facility] [address] [place] [address] Pharmacist Pharmacy 10/20/20 Karen Piper, [facility] [address] [place] [address] Pharmacist Pharmacy 03/15/21 Yolanda Dean PA [address] [facility] [place] [address] Referring Pulmonary and Critical Care Medicine 02/07/22 Traffic Law Attorney Relationship Specialty Start Date End Date Nadir Grady MD [address] [facility] [place] [address] PCP - General Family Medicine 08/04/15 [facility] [address] [facility] [place] [address] Pharmacist Pharmacy 10/20/20 FelizKaren florTwo [facility] [address] [facility] [place] [address] Pharmacist Pharmacy 03/15/21 Yolanda Dean PA [address] [facility] [place] [address] Referring Pulmonary and Critical Care Medicine 02/07/22 Traffic Law Attorney Relationship Specialty Start Date End Date Nadir Grady MD [address] [facility] [place] [address] PCP - General Family Medicine 08/04/15 [facility] [address] [facility] [place] [address] Pharmacist Pharmacy 03/15/21 Yolanda Dean PA [address] [facility] [place] [address] Referring Pulmonary and Critical Care Medicine 02/07/22 Traffic Law Attorney Relationship Specialty Start Date End Date Nadir Grady MD [address] [facility] [place] [address] PCP - General Family Medicine 08/04/15 [facility] [address] [place] [address] Pharmacist Pharmacy 03/15/21 Yolnada Dean PA [address] [place] [address] Referring Pulmonary and Critical Care Medicine 02/07/22 [...] BE BASED ON THE PRIMARY CLINICAL RECORDS. [facility] [facility]. provides no warranty or guarantee of the accuracy or completeness of information in this document.
[2023-10-23 11:36] LABS: Reflex Troponin-HS? (from REC) Y
[2023-10-23 12:40] LABS: Troponin-I HS 6 pg/mL (3.0-78.0)
== END 2023-10-23 13:45 | disposition home or self-care (01) ==
PROVIDERS: Emergency Provider Emergency Medicine; PCP Family Medicine; Visit Provider Emergency Medicine
DX: T78.3XXA Angioneurotic edema, initial encounter (principal); E11.65 Type 2 diabetes mellitus with hyperglycemia; I25.10 Atherosclerotic heart disease of native coronary artery without angina pectoris; I10 Essential (primary) hypertension; E78.5 Hyperlipidemia, unspecified; Z79.82 Long term (current) use of aspirin; Z79.84 Long term (current) use of oral hypoglycemic drugs; Z79.02 Long term (current) use of antithrombotics/antiplatelets; Z79.899 Other long term (current) drug therapy
CPT/HCPCS: 71045; 80048; 84484; 85025; 93005; 96374; 99284; J7030; A4216

== ENCOUNTER → 2023-11-19 | Outpatient (CLI) | payer MEDICARE, SELFPAY ==
[2020-09-11 08:28] VITALS: BMI 29.2
--- NOTE | 2023-11-19 13:05 | CR.HP_ITS ---
CR - History & Physical General Arrival date:: 11/19/23 Arrival time:: 13:06 Date of Referral:: 11/11/23 Date of CR Evaluation:: 11/19/23 Referring Physician: Dr. Hurst Primary Diagnosis: PCI with stent History of Present Cardiac Event Onset Date PTCA or coronary stenting:: Yes Medications Ambulatory Orders Medication Instructions Recorded aspirin 81 mg tablet,delayed 81 mg PO DAILY@0800 heart health 09/13/13 release omega 1-bvy-vra-fish oil 1,000 mg 1,000 mg PO QDAY supplement 01/06/18 (120 mg-180 mg) capsule (Fish Oil) metformin 500 mg tablet,extended 500 mg PO BID 07/25/20 release 24 hr ferrous sulfate 325 mg (65 mg 325 mg PO DAILY 06/28/22 iron) tablet amlodipine 5 mg tablet 5 mg PO DAILY #10 tabs 10/23/23 atorvastatin 80 mg tablet 40 mg PO DAILY cholesterol 10/30/23 ranolazine 1,000 mg 1,000 mg PO BID #60 tabs 10/30/23 tablet,extended release,12 hr ticagrelor 90 mg tablet (Brilinta) 90 mg PO BID #60 tabs 10/30/23 zinc acetate 50 mg (zinc) capsule 50 mg PO DAILY PRN 10/30/23 (Galzin) nitroglycerin 0.4 mg sublingual 0.4 mg sublingual Q5M PRN Chest 11/14/23 tablet Pain #25 tabs Allergies Allergies fludrocortisone [From Florinef] Allergy (Severe, Verified 10/30/23 09:08) ANGIOEDEMA losartan Adverse Reaction (Severe, Verified 10/30/23 09:33) Angioedema perfume Adverse Reaction (Verified 10/30/23 09:08) Other SINUS ISSUES Sleep Disorder Evaluation Hx of Sleep Apnea: No Do you snore loudly (louder than talking or can be heard through closed doors)?: No Do you often feel tired/ fatigued/ sleepy during daytime?: No Has anyone observed you stop breathing during sleep?: No History of Hypertension (for STOP score): Yes STOP Results: Negative Advanced Directives Advanced Directives Power of Pipe Line Inspector: Yes Living Will: Yes Advance Directives Information Provided: Yes Advance Directives on File: No DNR Order?:: No Past Medical History Covid-19 Screening Physicial Symptoms Other Clinical Concerns Exposure Risk Pertinent Comorbidities 65 years or older:: Yes Has a serious heart condition:: Yes Past Medical Illness Past Medical History (Updated 10/31/23 @ 00:01 by Renita Kwong) 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.10 PCI-RODDY-Mid LAD w/ 2.5 x 16 mm Synergy Stent and RODDY-Mid Ramus w/ 2.25 x 16 mm Synergy MR 01/20/2017; NIT-QOI-Lgeyzg LCx w/ 2.25 x 08 mm Synergy MR Stent 05/10/2020; RRH-OVD-Hdjg LCx w/ 2.5 x 12 mm Synergy Stent 11/20/20; PCI-RODDY-Mid RCA w/ 3.0 x 9 mm Orsiro Stent and POBA- distal RCA 04/26/21; CNZ-JYB-UKO-Prox LCx w/ 2.5 x 9 mm Orsiro Stent 07/23/21; 10/10/2023: Shockwave lithotripsy and RODDY to Prox OM1 and Mid RCA using 3.5 X 22, 3.0 X 18 and 3.0.8mm Bilateral carotid artery stenosis I65.23 50 to 69% stenosis right internal carotid artery; proximal left internal carotid artery with 50 to 69% stenosis. 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 Hyperlipidemia E78.5 Hypertension I10 Sciatica M54.30 Syncope (10/2021) R55 12/2019, 07/2021, 10/2021, 10/2021; loop recorder implanted 11/2021 Tremor of both hands R25.1 Type 2 diabetes mellitus E11.9 Past Surgical History Past Surgical History (Updated 11/18/23 @ 08:30 by Cheli Tanner) History of cataract surgery Z98.49 History of coronary artery stent placement (10/10/23) Z95.5 PCI-RODDY-Mid LAD w/ 2.5 x 16 mm Synergy Stent and RODDY-Mid Ramus w/ 2.25 x 16 mm Synergy MR 01/20/2017; VQG-QKY-Okrjdf LCx w/ 2.25 x 08 mm Synergy MR Stent 05/10/2020; PQY-WAJ-Bhck LCx w/ 2.5 x 12 mm Synergy Stent 11/20/20; PCI-RODDY-Mid RCA w/ 3.0 x 9 mm Orsiro Stent and POBA- distal RCA 04/26/21; GNZ-QFA-DGP-Prox LCx w/ 2.5 x 9 mm Orsiro Stent 07/23/21, PTCA/RODDY Prox and Mid RCA using [place] and RODDY distal RCA using [place] 3.0x12 mm, 2.5x12 mm and 2.5 x8 mm 10/10/23 History of hand surgery Z98.890 History of left heart catheterization (10/10/23) Z98.890 02/01/2019, 02/11/2022, 10/10/23 History of loop recorder (12/13/21) Z98.890 FOR SYNCOPE 10/2021 Hx of appendectomy Z98.890, Z90.49 Surgical History: angioplasty and appendectomy Family History Summary Family History Sister CAD (coronary artery disease) CVA (cerebral vascular accident) Diabetes Myocardial infarction Hx of CABG Mother Cancer Lung CA Social History Smoking History Smoking Status: Never smoker Hx Tobacco Use: Yes (used to use snuff) Alcohol Use Alcohol Usage: No Substance Abuse Hx Substance Use: No Occupation Occupation (List type of work in comments):: Retired Hobbies, Recreation, Social Activities Hobbies: Other (painting model cars) Recreational Activities: I am able to engage in all my recreational activities Social Environment Status Marital Status: Current Living Arrangements Living Environment:: Family Children How many children do you have?: 2 Do any of your children live nearby?: Yes Safety Do you feel safe in your surroundings?: Yes Assistance Do you need any assistance at home?: no Review of Systems Review of Systems Hints Review of Present Symptoms: Reports Shortness of Breath with Exertion, PVD, Angina, Fatigue, Appetite - Special Diet and Sleep - Normal; Denies Shortness of Breath at Rest, Operative Discomfort, Wound Healing, Dizziness/Lightheadedness, Heart Arrhythmia/Irregularities, Appetite - Normal or Sexual Changes Pain Is Patient Pain Free?: No Pain Location: other (knee and neck) Pain Level: 9/10 Risk Factor Assessment Chief Complaint Chief Complaint: PCI with stent Vital Signs Pulse Ox: 96 Blood Pressure: 130/56 Pulse Pulse Rate: 73 Hypertension Blood Pressure Sitting - Left Arm: 144/60 Diabetes Diabetic History: Type II Nutrition Referral for Diabetes: No Obesity Height: 5 ft 10 in Weight:: 194 lb Weight in Pounds: 194.0 lbs Body Mass Index (BMI): 27.8 Nutritional Referral for Obesity: No Physical Inactivity Physical Inactivity: Reg Exercise 30 min/day Risk Stratification Risk Guidelines: Lowest Risk: Risk Factor for Smoking, Moderate Risk: Risk Factor for Obesity, Risk Factor for Sedentary Lifestyle and Risk Factor for Depression and Highest Risk: Risk Factor for Dyslipidemia, Risk Factor for Diabetes and Risk Factor for Hypertension For Smoking Smoking Risk Guidelines For Dyslipidemia Dyslipidemia Risk Guidelines For Diabetes Mellitus Diabetes Risk Guidelines For Obesity/Overweight Obesity/Overweight Risk Guidelines For Hypertension Hypertension Risk Guidelines For Sedentary Lifestyle Sedentary Lifestyle Risk Guidelines For Depression Depression Risk Guidelines Family History Family History Sister CAD (coronary artery disease) CVA (cerebral vascular accident) Diabetes Myocardial infarction Hx of CABG Mother Cancer Motivation Motivation to Participate On a scale of 1 to 10, how prepared are you to commit to attending program?: 8 What do you see as barriers to successfully being able to complete the program?: no What do you see as the benefits of succesfully completing the program? In other words, what do you hope to get out of participating in the program?: more energy Are there issues you are dealing with that will interfere with completing the program?: no Do you have a spouse or signficant other, family or friends who will help support you to complete the program?: yes
[2023-11-19 13:14] VITALS: BP 130/56; PULSE 73; O2SAT 96
[2023-11-19 13:18] VITALS: BP 144/60
--- NOTE | 2023-11-19 13:18 | CR.ITP_ITS ---
Diagnosis General Information Admitting Diagnosis: PCI with stent Personal Learning Style:: Audio/Visual Stage of change r/t lifestyle modifications:: Contemplation Gave educational material for:: Treating Heart Disease, How The Heart Works, What it means to have Heart Disease, How Coronary Artery Disease is Diagnosed, Heart Procedures, What Heart Medications Do, Risk Factors & Modifications, Living an Active Life, Nutrition, Emotions & Heart Disease, Stress Management & Relaxation and Sleep Disorders & Heart Disease Education/Goals Cardiac Rehabilitation Goals Personal Goals: Initial Assessment: Improve energy level, Participate in home exercise program and Improve muscle strength and endurance Scale for measuring improvement of personal goals Diagnosis & Disease Process Outcomes/Goals: Pt IDs own risk factors & lifestyle modifications by Session 10, Verbalizes symptoms of angina & response by session 3., Pt independently manages and Other Additional Outcomes/Goals: Plan/Interventions: Assist Pt to ID & engage in lifestyle modification to reduce CVD risk, Instruct on individual risk factors, Review symptoms of angina & emergency actions, Review secondary diagnosis & identify educational needs. and Other see comment 30 day Reassessments:: Not Met 30 day Reassessments:: Not Met 30 day Reassessments:: Not Met 30 day Reassessments:: Not Met Final Reassessments:: Not Met Safety Referral to Physical Therapy: No Referral to [facility] Case Management: No Fall Risk Assessed:: Yes Assistive Devices:: None Exercise - Initial Assessment Visit Date of Eval: 11/19/23 (initial eval ) Mets: Pre-: >3 METS for 30 minutes by discharge, >5 METS for 30 minutes by discharge, >7 METS for 30 minutes by discharge and Unable to meet goal due to: (see comment below) Physician Prescribed Exercise Modalities: Treadmill, Rower, Airdyne, NuStep, SciFit and Lateral Backup Administrator Frequency: 3x/week for 12 weeks [36 sessions] Intensity: 60-80% of age predicted maximum heart rate reserve Duration: 30 - 45 minutes Current METSs:: 3 Target Heart Rate:: 90-105 Resting Blood Pressure: 144/60 EKG Type: SR Outcomes & Goals Goals:: Verbalizes understanding of THR, RPE & goal METS by session 6, Documents in home exercise log/reports 30 min aerobic 5 day/wk by DC, Demonstrates accurate pulse taking by DC and Other additional outcome/goals: see below Intervention & Plan Exercise Program Goals: Instruct on personal THR & RPE, Instruct on MET level & personal MET goal, Show patient to take own pulse /validate performance until accurate, Instruct on home exercise and Other additional plan/int Physical Activity Home Exercise Physical Activity - Home Exercise: Safe Exercise, Warm-up, Self-monitoring, Cool-Down, Home Exercise > 30 min Daily and Sitting Time <3 hours/daily Outcomes & Goals Outcomes/Goals: Demonstrates correct Warm-up/exercise Cool-Down (S3) if = 2.5 METs, Verbalizes symptoms of exercise intolerance by Session 3 (S3), Demonstrate safe equipment use (S3) & follows exercise prescrition (6) and Other: See below Intervention & Plan Plan/Intervention: Instruct warm-up & cool-down if exercising at > 2 METs, Instruct on symptoms of exercise intolerance & actions to take, Instruct & monitor on saf, Assess intial functional capacity & safety risk and Other See below Nutrition - Initial Assessment Program Goals Nutrition Program Goals Patient has diagnosis of Hyperlipidemia (ICD E78)?: Yes Visit Date of Eval: 11/19/23 (initial eval ) Cholesterol/Lipids (Other Core Measures) Determine presence & major risk factors that modify LDL goal: Hypertension or hypertensive medication, Low HDL cholesterol <40 mg/dL*, Family history of premature CHD in Male < 55 years: female <65 yearsFa and Age men > 45 years; women >/= 55 years Outcomes/Goals: Pt IDs own risk factors & lifestyle modifications by Session 10, Verbalizes symptoms of angina & response by session 3., Pt independently manages and Other Additional Outcomes/Goals: Intervention/Plan: Advocate for lipid panel cholesterol medication if applicable, Instruct on personal lipid levels & lipid goals/NCEP guidelines, Instruct on cholesterol and Other additional plan/int Referral to dietitian:: No Diabetes (Other Core Measures) Diabetes Type: Diagnosis Type II ICD-10 E11 Weight Mgt (Other Care) Height: 5 ft 10 in Weight:: 194 lb BMI: 27.8 Diagnosis Overweight/Obesity BMI> 30% ICD-10 E66: No Diagnosis High BMI/Morbid Obesity BMI> 35% ICD-10 Z68: No Outcomes/Goals: Pt sets, maintains & shows weight loss goal & trend during rehab and Other additional outcomes/goals Intervention/Plan: Instruct on ideal BMI & set weight loss goal w/patient, Assist pt to ID & incorporate diet changes for weight loss by S9, Refer to Structured Weight Loss program as appropriate, Encourage goal of using 250- 300dcal per session for weight loss and Other additional plan/interventions Healthy Eating Habits Will attend diet classes:: Yes Outcomes/Goals:: Consume diet rich in vegs,fruits,whole grain/high fiber,fish,lean meat, Limit sat/trans fats,cholesterol & added salts & sugars and Other additional outcome/goals: Intervention/Plan:: Assess current eating habits and Other Additional plan/interventions Education Gave educational materials for:: Signs & symptoms of hypoglycemia, Signs & symptoms of hyperglycemia, Relate diabetes to coronary artery disease and Healthy eating Core - Initial Assessment Visit Date of Eval: 11/19/23 (initial eval ) Medication Compliance Preventative Medication(s):: Aspirin and Statin/lipid H/O mental health issues: depression, anxiety, or addiction?: No Doesn?t believe in the benefits of treatment?: No Believes medications are unnecessary or harmful?: No Has a concern about medication side effects?: No Expresses concern over the cost of medications?: No Outcomes/Goals: Verbalizes medications,desired effect & common side effects @ DC, Pt self-reports following medication regimen, Keeps card in wallet w/medications listed by DC and Other additional outcome/goals: Interventions/plans: Instruct on medication effects & side effects, Review medication list w/patient every two weeks, Instruct importance of taking meds as ordered & assist problem solving and Other additional Tobacco Use Tobacco Use: Non-smoker Hypertension Hypertension Diagnosis:: Hypertension ICD-10 I10 Resting Blood Pressure:: 144/60 [place] [employer] Hypertension Guidelines Outcomes/Goals: Able to verbalize/achieve optimal blood pressure <130/80, Incorporates diet changes & exercise for blood pressure control by DC and Other additional outcomes/goals Interventions/plan: Instruct on optimal blood pressure, hypertension & medications, Instruct on effects of sodium, alcohol, stress, exercise &hypertension and Other additional plan/interventions Tobacco Cessation Referral Smoking Cessation Referral:: No Individual Education/Counseling:: No Education Schedule Given:: Yes Psychosocial - Initial Assess VIsit Date of Eval: 11/19/23 (initial eval ) History of previous Mental disease:: No Target Goals Target Goals Outcomes/Goals: See list Psychosocial Outcomes/Goals:: ID's personal stressors & 2 strategies to manage stress by discharge and Other Additional outcome/goals: Intervention/Plan: See List Interventions/Plan:: Assess stressors,coping strategies & signs of derpression on admission, Instruct/assist pt to develop coping & personal stress Mgt strategies, Refer to Behavioral Health if appropriate, Refer to Physician if appropriate, Instruct patient to recognize signs & symptoms of depression, Instruct patient to recog and Other additional plan/intervention Patient Health Questionnaire PHQ-9 Screening Initial Assessment: 1. Little interest or pleasure in doing things: Not at all 2. Feeling down, depressed, or hopeless: Not at all 3. Trouble falling or staying asleep, or sleeping too much: Nearly every day 4. Feeling tired or having little energy: Nearly every day 5. Poor appetite or overeating: Nearly every day 6. Feeling bad about yourself -- or that you are a failure or have let yourself or your family down: Not at all 7. Trouble concentrating on things, such as reading the newspaper or watching television: Not at all 8. Moving or speaking so slowly that other people could have noticed. Or the opposite - being so fidgety or restless that you have been moving around a lot more than usual: Not at all 9. Thoughts that you would be better off , or of hurting yourself in some way: Not at all How difficult have these problems made it for you to do your work, take care of things at home, or get along with other people?: Somewhat difficult Total Score: 9 MOINCA-Q SV Test Statements CAD is a disease of the arteries in the heart: False Examples of risk factors for heart disease: True Angina is chest pain or discomfort: True The benefits of resistance training include: True Eating more meat and dairy products: False Anti-platelet medications such as aspirin are important: True The only effective way to manage stress: False An exercise warm-up slowly increases heart rate: True Prepared, processed foods usually have high sodium: True Depression is common after a heart attack: True The statin medications lower cholesterol: True To control blood pressure, lower the amount of sodium: True If someone gets chest discomfort during walking: False Transfats are partially hydrogenated vegetable oils: True Sleep apnea that is not treated increases the risk: True To control cholesterol, one should become a vegetarian: False Someone knows if he/she is exercising at the right level: True Diabetes cannot be prevented with exercise & health eating: False Stress is a large risk for heart attack: True A diet that can help lower blood pressure is rich in: True Total Score Total Correct Responses: 19 Self-Efficacy 6-Item Scale Initial Assessment: We would like to know how confident you are in doing certain activities. Please select your confidence level for: Fatigue Select Number: 10 Physical Discomfort or Pain Select Number: 6 Emotional Distress Select Number: 5 Other Symptoms or Health Problems Select Number: 8 Different Tasks and Activities Select Number: 9 Medication Select Number: 8 Total Score:: 7 Nutrition Survey Nutrition Survey Instructions Scoring Instructions Nutrition Survey Initial: Have you lost >10 lbs over the past 2 months without trying?: No Are you following a special diet at home for diabetes, low fat, or low salt?: Yes Are you interested in meeting with a dietitian for help understanding your diet?: No Do you eat less than 3 meals a day?: Yes Do you eat fatty meats (antonio, sausage, ribs, etc), fried foods, desserts, large amounts of salad dressings, margarine, butter, or cheese most days?: Yes Do you have food allergies? [Enter types in comment field]: No Do you eat in restaurants more than 3 times a week?: No Do you used canned, boxed, frozen meals, or soups, seasoning packets?: Yes Exercise - Final/Discharge Physician Prescribed Exercise Modalities: Treadmill, Rower, Airdyne, NuStep, SciFit and Lateral [place] Frequency: 3x/week for 12 weeks [36 sessions] Intensity: 60-80% of age predicted maximum heart rate reserve Current METSs:: 3 Target Heart Rate:: 90-105 Nutrition - 30-Day Assessment Weight Mgt (Other Care) Height: 5 ft 10 in Weight:: 194 lb BMI: 27.8 Nutrition - 60-Day Assessment Weight Mgt (Other Care) Height: 5 ft 10 in Weight:: 194 lb BMI: 27.8 Core - Final Assessment Hypertension Resting Blood Pressure:: 144/60 [place] [employer] Hypertension Guidelines Core - 60-Day Assessment Hypertension Resting Blood Pressure:: 144/60 [place] [employer] Hypertension Guidelines Psychosocial - 30-Day Assess Target Goals Target Goals Psychosocial - 60-Day Assess Target Goals Target Goals Psychosocial - 90-Day Assess Target Goals Target Goals Psychosocial - Final Assessmen Target Goals Target Goals Nutrition - 90-Day Assessment Weight Mgt (Other Care) Height: 5 ft 10 in Weight:: 194 lb BMI: 27.8 Nutrition - Final Assessment Program Goals Patient has diagnosis of Hyperlipidemia (ICD E78)?: Yes Weight Mgt (Other Care) Height: 5 ft 10 in Weight:: 194 lb BMI: 27.8
[2023-11-19 13:37] VITALS: BP 144/60; BMI 27.8
[2023-11-19 13:57] VITALS: BMI 27.8
== END | disposition home or self-care (01) ==
LOC: CR 11:58
PROVIDERS: PCP Family Medicine; Referring Provider Internal Medicine Cardiovascular Disease; Visit Provider Internal Medicine Cardiovascular Disease
DX: Z95.5 Presence of coronary angioplasty implant and graft (principal)

== ENCOUNTER → 2023-11-24 | Day surgery (SDC) | payer MEDICARE, SELFPAY ==
[2020-09-11 08:28] VITALS: BMI 29.2
[2023-11-19 13:37] VITALS: BMI 27.8
[2023-11-21 14:13] VITALS: BMI 27.8
--- NOTE | 2023-11-24 08:37 | CL.IE_ITS ---
Patient: PRESTON BATES Study Date: 11/24/2023 Performing: Jd Nickerson MD : 1955 Age: 68 Gender: male PROCEDURES PERFORMED [id number])REMOVAL OF LOOP RECORDER INDICATIONS Syncope PROCEDURE DETAILS The patient was brought to the Catheterization Lab in the postabsorptive nonsedated state. Informed consent was obtained prior to the procedure. Local anesthetic was given subcutaneously to the left subclavian region with Lidocaine 2%. Incision was made to the left subclavicular area. ICM Loop Recorder was removed. Instrument, sponge, and needle counts were noted to be normal. The patient tolerated the procedure well. Estimated Blood Loss: 2 ml's IMPLANTED / EX-PLANTED DEVICES EXPLANTED DEVICE(S): ICM Loop Recorder - [place] Repairer: [employer] , Model # M301 , Serial # [id number] DEVICE PARAMETERS CONCLUSIONS / RECOMMENDATIONS Device Conclusions: success removal of loop recorder Device Recommendations: Follow up with Primary Care Physician PROCEDURE MEDICATIONS Versed 1 mg IV Oxygen: 2 L/min via nasal cannula Antibiotic given in appropriate timeframe. Ancef 2 Gm IV @ 11/24/2023 08:05:34 Signed By Jd Nickerson MD On 11/24/2023 08:36:38 Jd Nickerson MD
== END | disposition home or self-care (01) ==
LOC: CLSP 06:20
PROVIDERS: PCP Family Medicine; Referring Provider Internal Medicine Cardiovascular Disease; Visit Provider Internal Medicine Cardiovascular Disease
DX: Z45.09 Encounter for adjustment and management of other cardiac device (principal); E11.9 Type 2 diabetes mellitus without complications; R55 Syncope and collapse; I25.10 Atherosclerotic heart disease of native coronary artery without angina pectoris; Z95.5 Presence of coronary angioplasty implant and graft; I10 Essential (primary) hypertension; E78.5 Hyperlipidemia, unspecified; Z79.899 Other long term (current) drug therapy; I65.23 Occlusion and stenosis of bilateral carotid arteries; I95.9 Hypotension, unspecified
CPT/HCPCS: 33286; 99152; J7040

== ENCOUNTER 2023-11-28 14:15 | Outpatient (RCR) | payer MEDICARE, SELFPAY ==
[2023-11-19 13:37] VITALS: BMI 27.8
== END 2023-11-30 23:59 ==
LOC: CR 14:15
PROVIDERS: PCP Family Medicine; Referring Provider Internal Medicine Cardiovascular Disease; Visit Provider Internal Medicine Cardiovascular Disease
DX: Z95.5 Presence of coronary angioplasty implant and graft (principal); I25.10 Atherosclerotic heart disease of native coronary artery without angina pectoris; I10 Essential (primary) hypertension; R55 Syncope and collapse
CPT/HCPCS: 93798

== ENCOUNTER 2023-12-03 14:14 | Observation (INO) | payer MEDICARE, SELFPAY ==
[2023-11-19 13:37] VITALS: BMI 27.8
[2023-12-03 14:14] VITALS: BP 172/88; PULSE 98; RESP 16; TEMP 36.2; O2SAT 97
--- NOTE | 2023-12-03 14:29 | ED.VIS.CHEST ---
HPI History of Present Illness Chief Complaint: Chest Pain Informant: patient Onset/Context/Timing Onset: Yesterday Activity at onset: gradual and light activity Timing: Intermittent Quality: Positive for Sharp Location: Substernal and Left Parasternal Worsened By: Exertion Relieved By: Rest Associated Symptoms: Positive for Lightheadedness and Palpitations; Negative for Nausea, Vomiting, Diaphoresis, Dyspnea, Cough, Fever or Acid Reflux Narrative Narrative: Patient presents with chest pain that began yesterday. Patient states that has been intermittent. Patient states it came on while he was walking. Patient describes the pain as sharp. Patient states the pain is over the substernal and left parasternal area. Patient states it is worse with any exertion and better with rest. Patient admits to some lightheadedness and palpitations with the pain. Patient denies any nausea or vomiting. Patient denies any diaphoresis. Patient denies any shortness of breath or cough. Patient has a history of pulmonary embolism and is on blood thinners. Patient also had recent stent placement. 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/10/23) Bilateral carotid artery stenosis BPH (benign prostatic hyperplasia) COVID-19 (06/2021) DDD (degenerative disc disease) Elevated LFTs Essential (primary) hypertension History of CAD (coronary artery disease) Hx of diabetes insipidus Hyperlipidemia Hypertension Sciatica Syncope (10/2021) Tremor of both hands Type 2 diabetes mellitus Home Medications aspirin 81 mg tablet,delayed release 81 mg PO DAILY@0800 heart [facility] [facility] 09/13/13 [History Last Taken 02/11/22] omega 5-pby-hyl-fish oil 1,000 mg (120 mg-180 mg) capsule (Fish Oil) 1,000 mg PO QDAY supplement 01/06/18 [History Last Taken 12/29/21] metformin 500 mg tablet,extended release 24 hr 1,000 mg PO BID 07/25/20 [History Last Taken 11/23/23] ferrous sulfate 325 mg (65 mg iron) tablet 325 mg PO BID 06/28/22 [History Last Taken Unknown] amlodipine 5 mg tablet 5 mg PO DAILY #10 tabs 10/23/23 [Rx Last Taken 11/24/23] atorvastatin 80 mg tablet 40 mg PO DAILY cholesterol 10/30/23 [History Last Taken Unknown] ranolazine 1,000 mg tablet,extended release,12 hr 1,000 mg PO BID #60 tabs 10/30/23 [Rx Last Taken Unknown] ticagrelor 90 mg tablet (Brilinta) 90 mg PO BID #60 tabs 10/30/23 [Rx Last Taken Unknown] zinc acetate 50 mg (zinc) capsule (Galzin) 50 mg PO DAILY supplement 10/30/23 [History Last Taken Unknown] nitroglycerin 0.4 mg sublingual tablet 0.4 mg sublingual Q5M PRN Chest Pain #25 tabs 11/14/23 [Rx Last Taken Unknown] clopidogrel 75 mg tablet 75 mg PO DAILY 12/03/23 [History Last Taken Unknown] pantoprazole 40 mg tablet,delayed release 40 mg PO DAILY 12/03/23 [History Last Taken Unknown] pioglitazone 45 mg tablet 45 mg PO DAILY 12/03/23 [History Last Taken Unknown] Allergy/AdvReac Type Severity Reaction Status Date / Time fludrocortisone Allergy Severe ANGIOEDEMA Verified 10/30/23 09:08 [From [place]] losartan AdvReac Severe Angioedema Verified 10/30/23 09:33 perfume AdvReac Other Verified 10/30/23 09:08 Family History Sister CAD (coronary artery disease) CVA (cerebral vascular accident) Diabetes Myocardial infarction Hx of CABG Mother Cancer Lung CA Surgical History History of cataract surgery History of coronary artery stent placement (10/10/23) History of hand surgery History of left heart catheterization (10/10/23) History of loop recorder (12/13/21) Hx of appendectomy Social History Smoking Status: Never smoker alcohol intake: never substance use type: does not use caffeine: No what type of physical activity do you participate in: none seatbelt use: always do you feel safe at home: Yes ROS ROS ED Constitutional Constitutional ED: Denies chills or fever(s) Eyes Eyes: Denies blurry vision or change in vision ENT ENT ED: Denies rhinorrhea or sore throat Cardiovascular Cardiovascular: Reports chest pain and palpitations Respiratory/Chest Respiratory/Chest: Denies cough or dyspnea Gastrointestinal Gastrointestinal: Denies abdominal pain, nausea or vomiting Genitourinary Genitourinary ED: Denies dysuria or hematuria Musculoskeletal Musculoskeletal: Reports back pain; Denies neck pain Integumentary Denies abscess or rash Neurologic Neurologic: Reports headache(s); Denies weakness Allergic/Immunologic Allergic/Immunologic ED: Denies mouth swelling or urticaria EXAM Physical Exam Const Vital Signs: 12/03/23 14:14 12/03/23 14:51 12/03/23 16:14 Temperature 97.2 F L Temperature Source Temporal Pulse Rate 98 79 Respiratory Rate 16 16 Blood Pressure 172/88 H 153/80 H Blood Pressure Mean 116 104 Pulse Ox 97 95 Oxygen Delivery Method Room Air Room Air 12/03/23 17:52 Temperature 98.1 F Temperature Source Pulse Rate 91 Respiratory Rate 16 Blood Pressure 137/77 H Blood Pressure Mean 97 Pulse Ox 96 Oxygen Delivery Method Positive well nourished and well developed General Appearance ED: well developed and NAD HEENT Reports moist mucous membranes Neck supple and no JVD Chest Wall palpation of chest normal Resp normal respiratory effort and clear to auscultation bilaterally Cardio regular rate GI soft to palpation, non-tender and non-distended Neuro oriented x3, CN's II-XII intact bilaterally and no sensory deficits noted Sensorium / Orientation: awake and alert Motor Exam: strength 5/5 throughout Psych mental status grossly normal Heart Score History: Moderately Suspicious ECG: Nonspecific Repolarization Age: >/= 65 years Risk Factors: >/= 3 Risk Factors or History of CAD Troponin: </= Normal Limit Score: 6 MDM MDM MDM Narrative Medical decision making narrative: Differential diagnosis includes cardiac dysrhythmia, cardiac ischemia, electrolyte abnormality, pneumonia, pneumothorax, and anxiety. EKG will be obtained to assess for cardiac dysrhythmia and cardiac ischemia. Chest x-ray will be obtained to assess for pneumonia and pneumothorax. CBC will be obtained to assess for leukocytosis and anemia. Basic metabolic profile will be obtained to assess for electrolyte abnormality and renal function. High-sensitivity troponin will be obtained to assess for cardiac ischemia. 2-hour repeat high-sensitivity troponin will be obtained to assess for ongoing cardiac ischemia. PT with INR and PTT will be obtained to assess for coagulopathy. Lab Data Attestation: I reviewed the patient's lab results. Lab results narrative: CBC was reviewed. There is a mild anemia with a hemoglobin of 11.4 and hematocrit 33.3. Basic metabolic profile was reviewed and was essentially within normal limits. PT was INR and PTT were reviewed and were within normal limits. High-sensitivity troponin was normal at 6. 2-hour repeat high-sensitivity troponin was normal at 6. Labs: Laboratory Results - last 24 hr 12/03/23 12/03/23 14:50 16:50 WBC 4.6 RBC 3.83 L Hgb 11.4 L Hct 33.3 L MCV 86.9 MCH 29.8 MCHC 34.2 RDW Std Deviation 39.1 RDW Coeff of Megan 12.3 Plt Count 189 MPV 9.2 Immature Gran % (Auto) 0.900 Neut % (Auto) 65.7 Lymph % (Auto) 19.4 [place] % (Auto) 11.2 H Eos % (Auto) 1.9 Baso % (Auto) 0.9 Absolute Neuts (auto) 3.0 Absolute Lymphs (auto) 0.90 Nucleated RBC % 0 PT 13.0 INR 1.0 APTT 27.7 Sodium 134 L Potassium 3.9 Chloride 101 Carbon Dioxide 28.0 Anion Gap 5 BUN 23 H Creatinine 1.02 Est GFR (MDRD) Af Amer 93 Est GFR (MDRD) Non-Af 77 BUN/Creatinine Ratio 22.5 H Glucose 264 H Calcium 9.0 Troponin I High Sens 6 6 Radiography Chest X-Ray - ED: 1 View, Read by ED Physician, Read by Radiologist and No Acute Disease Diagnostic Testing: Clinical Impression(s) from Imaging Studies Chest X-Ray 12/03/23 15:49 IMPRESSION: No acute radiographic abnormalities. Electronically Signed: Nura Crowder MD at 16:48 EDT , Portable 1 view chest x-ray was obtained. On my independent interpretation, lung romero are clear. There is normal cardiac silhouette. Bony thorax is normal. There is no acute process noted. Radiologist also interpreted the x-ray and agrees. EKG Initial EKG: Attestation: I personally reviewed and interpreted this EKG as follows: Interpretation: Sinus Rhythm (88) and Non-Specific ST Changes Comments: EKG was obtained. On my independent interpretation, it showed a normal sinus rhythm with a rate of 88. [place] interval, QRS interval, and QTc intervals were all normal. [place] was normal. There are nonspecific ST-T wave changes. Prior EKG tracings: available for review Prior: Unchanged (10/30/2023) Management Discussion w/another healthcare provider: Hospitalist Treatment and Re-Evaluation :: Patient was advised of his findings. Patient has a HEART score of 6. Because of this, I recommended admission to the hospital. Case was discussed with the hospitalist. He will admit the patient to his service. Patient understood and was agreeable with the plan. All questions were answered. Discharge Plan Triage Chief Complaint: Chest Pain ED Provider: Jered Huff Dx/Rx/DC Orders Clinical Impression: Essential (primary) hypertension, Chest pain Prescriptions: No Action omega 5-myf-wxu-fish oil [Fish Oil] 1,000 mg (120 mg-180 mg) capsule 1,000 mg PO QDAY Patient Comments: 1200 mg PO QDAY metformin 500 mg tablet extended release 24 hr 1,000 mg PO BID atorvastatin 80 mg tablet 40 mg PO DAILY Hold Instructions: itching all over, no rash Galzin 50 mg (zinc) capsule 50 mg PO DAILY ranolazine 1,000 mg tablet extended release 12 hr 1,000 mg PO BID Qty: 60 11RF Brilinta 90 mg tablet 90 mg PO BID Qty: 60 11RF aspirin 81 MG tablet 81 mg PO DAILY@0800 amlodipine 5 mg tablet 5 mg PO DAILY Qty: 10 0RF pioglitazone 45 mg tablet 45 mg PO DAILY clopidogrel 75 mg tablet 75 mg PO DAILY pantoprazole 40 mg tablet,delayed release (DR/EC) 40 mg PO DAILY ferrous sulfate 325 mg (65 mg iron) tablet 325 mg PO BID nitroglycerin 0.4 mg tablet, sublingual 0.4 mg SUBLINGUAL Q5M PRN (Reason: Chest Pain) Qty: 25 6RF Rx Instructions: take one tablet every 5-15 to not exceed 3 tablets Primary Care Provider: Nadir Abdalla Referrals: Nadir Abdalla MD [Primary Care Provider] - Disposition Disposition: Acute Care Hospital [facility]
--- NOTE | 2023-12-03 14:45 | EKG12_ITS ---
Test Reason : CHEST PAIN Blood Pressure : / mmHG Vent. Rate : 088 BPM Atrial Rate : 088 BPM P-R Int : 160 ms QRS Dur : 090 ms QT Int : 356 ms P-R-T Axes : 054 040 014 degrees QTc Int : 430 ms Normal sinus rhythm Nonspecific ST abnormality Abnormal ECG Confirmed by SHAHID POTTER, HUSSAIN ([id number]), publication editor CODY YOON ([id number]) on 12/05/2023 9:08:04 AM Referred By: Confirmed By:HUSSAIN KEY MD
[2023-12-03 14:57] LABS: Basophil# 0.04 X10^3/uL; Basophil% 0.9 % (0-1); Eosinophil# 0.09 X10^3/uL; Eosinophils% 1.9 % (0-5); Hematocrit 33.3 % (40-54); Hemoglobin 11.4 g/dL (13.0-16.5); Lymphocyte % 19.4 % (19-41); Mean Corp Hgb Conc 34.2 g/dL (32-36); Mean Corpuscular Hgb 29.8 pg (27.0-32.0); Mean Corpuscular Volume 86.9 fL (80-94); Mean Platelet Vol. 9.2 fl (6.2-12.0); Monocyte# 0.52 X10^3/uL; Monocyte% 11.2 % (0-10); NRBC Flagged by Analyzer 0 % (0-5); Neutrophil # 3.04 X10^3/uL (2.7-7.7); Neutrophil % 65.7 % (47-70); Platelet Count 189 K/mm3 (150-450); RBC Distribution Width CV 12.3 % (11.6-14.6); RBC Distribution Width SD 39.1 fl (35.1-43.9); Red Blood Count 3.83 M/mm3 (4.6-6.2); White Blood Count 4.6 K/mm3 (4.4-11.0)
[2023-12-03 15:10] LABS: Partial Thromboplast Time 27.7 Seconds (24.1-36.2)
[2023-12-03 15:20] LABS: Anion Gap 5 (5-15); BUN 23 mg/dL (7-18); BUN/Creat Ratio 22.5 RATIO (10-20); Chloride 101 mmol/L (98-107); Creatinine, Serum 1.02 mg/dL (0.70-1.30); EST Glomerular Filtration Rate 77 mL/min (>60); Est Glom Filt Rate - Afr Amer 93 mL/min (>60); Glucose 264 mg/dL (74-106); Potassium 3.9 mmol/L (3.5-5.1); Sodium Level 134 mmol/L (136-145); Troponin-I HS (w/2H Reflex) 6 pg/mL (3.0-78.0)
[2023-12-03] MEDS: Aspirin 81 MG TAB.CHEW 324 MG PO (15:47)
--- NOTE | 2023-12-03 15:49 | RAD_ITS ---
INDICATION: chest pain EXAMINATION/TECHNIQUE: X-RAY - XR Chest 1 View COMPARISON: None. FINDINGS: The lungs are clear. Tortuous and calcified thoracic aorta. The heart is not enlarged. No pleural effusion or pneumothorax. Degenerative changes of the thoracic spine. RAD/Chest 1 View (Portable) IMPRESSION: No acute radiographic abnormalities. Electronically Signed: Nura Crowder MD at 16:48 EDT ,
[2023-12-03 16:14] VITALS: BP 153/80; PULSE 79; RESP 16; O2SAT 95
[2023-12-03 16:53] LABS: Reflex Troponin-HS? (from REC) Y
[2023-12-03 17:19] LABS: Troponin-I HS 6 pg/mL (3.0-78.0)
[2023-12-03 17:43] VITALS: BMI 28.4
[2023-12-03 17:52] VITALS: BP 137/77; PULSE 91; RESP 16; TEMP 36.7; O2SAT 96
--- NOTE | 2023-12-03 18:26 | PCM.HP.STD ---
HPI - General General Date of Admission: 12/03/23 Date of Service: 12/03/23 Chief Complaint: Chest pain on exertion since yesterday HPI Narrative PRESTON BATES, is a 68 M with history of CAD status post multiple stents last 1 in October 2023 came to ED for exertional chest pain that started yesterday. Patient states he was doing simple walking and chest pain started as pressure, 3-5/10 intensity, left-sided with radiation to interscapular area in the back. It is starts after 4 to 5 minutes of walking and goes away at taking rest. It lasted about 10 to 12 minutes. This happened today and therefore came to ED. Patient on Xarelto here shortness of breath dizziness but denies syncope or sweating/diaphoresis. Patient was last seen in cardiology clinic by Yolanda Dean on 10/30/2023. Patient also had a loop recorder for history of syncope which was removed on 11/23. Patient had cardiac cath on 10/10/2023. In ED, twelve-lead EKG shows normal sinus rhythm at [address]-T changes with T wave inversion in V1. Last EKG on 10/30/2023 is similar with normal sinus rhythm. Patient had 2 troponins negative. [facility] Medical History Atherosclerotic heart disease of [place] coronary artery without angina pectoris (10/10/23) Bilateral carotid artery stenosis BPH (benign prostatic hyperplasia) COVID-19 (06/2021) DDD (degenerative disc disease) Elevated LFTs Essential (primary) hypertension History of CAD (coronary artery disease) Hx of diabetes insipidus Hyperlipidemia Hypertension Sciatica Syncope (10/2021) Tremor of both hands Type 2 diabetes mellitus Home Medications aspirin 81 mg tablet,delayed release 81 mg PO DAILY@0800 heart health 09/13/13 [History Last Taken 02/11/22] omega 9-puf-zjf-fish oil 1,000 mg (120 mg-180 mg) capsule (Fish Oil) 1,000 mg PO QDAY supplement 01/06/18 [History Last Taken 12/29/21] metformin 500 mg tablet,extended release 24 hr 1,000 mg PO BID 07/25/20 [History Last Taken 11/23/23] ferrous sulfate 325 mg (65 mg iron) tablet 325 mg PO BID 06/28/22 [History Last Taken Unknown] amlodipine 5 mg tablet 5 mg PO DAILY #10 tabs 10/23/23 [Rx Last Taken 11/24/23] atorvastatin 80 mg tablet 40 mg PO DAILY cholesterol 10/30/23 [History Last Taken Unknown] ranolazine 1,000 mg tablet,extended release,12 hr 1,000 mg PO BID #60 tabs 10/30/23 [Rx Last Taken Unknown] ticagrelor 90 mg tablet (Brilinta) 90 mg PO BID #60 tabs 10/30/23 [Rx Last Taken Unknown] zinc acetate 50 mg (zinc) capsule (Galzin) 50 mg PO DAILY supplement 10/30/23 [History Last Taken Unknown] nitroglycerin 0.4 mg sublingual tablet 0.4 mg sublingual Q5M PRN Chest Pain #25 tabs 11/14/23 [Rx Last Taken Unknown] clopidogrel 75 mg tablet 75 mg PO DAILY 12/03/23 [History Last Taken Unknown] pantoprazole 40 mg tablet,delayed release 40 mg PO DAILY 12/03/23 [History Last Taken Unknown] pioglitazone 45 mg tablet 45 mg PO DAILY 12/03/23 [History Last Taken Unknown] Allergy/AdvReac Type Severity Reaction Status Date / Time fludrocortisone Allergy Severe ANGIOEDEMA [facility]30[facility]23 09[facility]08 [facility] losartan AdvReac Severe Angioedema Verified 10/30/23 09:33 perfume AdvReac Other Verified 10/30/23 09:08 Family History Sister CAD (coronary artery disease) CVA (cerebral vascular accident) Diabetes Myocardial infarction Hx of CABG Mother Cancer Lung CA Surgical History History of cataract surgery History of coronary artery stent placement (10/10/23) History of hand surgery History of left heart catheterization (10/10/23) History of loop recorder (12/13/21) Hx of appendectomy Social History Smoking Status: Never smoker alcohol intake: never substance use type: does not use caffeine: No what type of physical activity do you participate in: none seatbelt use: always do you feel safe at home: Yes ROS ROS Narrative Constitutional: Mild fatigue on walking no fever. HEENT: Reports systems reviewed and no addt'l complaints, except as documented Respiratory/Chest: As described in HPI. No dyspnea at rest CVS: As described in HPI Gastrointestinal: Denies coffee ground emesis, hematemesis or vomiting Genitourinary: Denies burning urination or new urinary tract symptoms Musculoskeletal: Denies acute joint pain or limited range of motion. No acute injury Neurologic: Denies seizure-like symptoms. skin: No ulcer. No rash Endocrinology: Reports systems reviewed and no addt'l complaints, except as documented Hematologic/Lymphatic: Reports systems reviewed and no addt'l complaints, except as documented Rest 14 ROS are negative except as mentioned in HPI Vital Signs Vital Signs Vital Signs: 12/03/23 14:14 12/03/23 14:51 12/03/23 16:14 Temperature 97.2 F L Temperature Source Temporal Pulse Rate 98 79 Respiratory Rate 16 16 Blood Pressure 172/88 H 153/80 H Blood Pressure Mean 116 104 Pulse Ox 97 95 Oxygen Delivery Method Room Air Room Air 12/03/23 17:52 Temperature 98.1 F Temperature Source Pulse Rate 91 Respiratory Rate 16 Blood Pressure 137/77 H Blood Pressure Mean 97 Pulse Ox 96 Oxygen Delivery Method Weight Weight: 198 lb 3.129 oz Body Mass Index (BMI) 28.4 Physical Exam Narrative General: Alert, Oriented x3, Cooperative HEENT: Atraumatic, PERRLA, EOMI, Normocephalic Oral: No Gingival or Mucosal Lesions/ Ulcerations Neck: Supple, No JVD, Negative Carotid Bruits Chest wall/Lungs: Air entry diminished in bilateral lung bases. No crepitation/rhonchi Cardiovascular: Regular rate, Regular Rhythm, Normal S1, Normal S2, holosystolic murmur at LLSB and cardiac apex Abdomen: Bowel Sounds Present, Soft, Non Tender, Non-Distended : No dysuria. No renal angle tenderness. No suprapubic tenderness. Extremities: No edema, Capillary Refill Less than 3 Seconds Skin: No rashes, No breakdown Musculoskeletal: No Tenderness to Palpation of Joints or Extremities Neurological: Cranial nerves II-XII grossly intact, DTR 2+/4. No acute focal neurological deficit. Psych/Mental Status: Normal Affect, Appropriate. Results Lab / Micro Data 12/03/23 14:50 12/03/23 14:50 Labs: Laboratory Results - last 24 hr 12/03/23 14:50: WBC 4.6, RBC 3.83 L, Hgb 11.4 L, Hct 33.3 L, MCV 86.9, MCH 29.8, MCHC 34.2, RDW Std Deviation 39.1, RDW Coeff of Megan 12.3, Plt Count 189, MPV 9.2, Immature Gran % (Auto) 0.900, Neut % (Auto) 65.7, Lymph % (Auto) 19.4, [place] % (Auto) 11.2 H, Eos % (Auto) 1.9, Baso % (Auto) 0.9, Absolute Neuts (auto) 3.0, Absolute Lymphs (auto) 0.90, Nucleated RBC % 0, PT 13.0, INR 1.0, APTT 27.7, Sodium 134 L, Potassium 3.9, Chloride 101, Carbon Dioxide 28.0, Anion Gap 5, BUN 23 H, Creatinine 1.02, Est GFR (MDRD) Af Amer 93, Est GFR (MDRD) Non-Af 77, BUN/Creatinine Ratio 22.5 H, Glucose 264 H, Calcium 9.0, Troponin I High Sens 6 12/03/23 16:50: Troponin I High Sens 6 Imaging Radiology Impression Chest X-Ray 12/03/23 15:49 IMPRESSION: No acute radiographic abnormalities. Electronically Signed: Nura Crowder MD at 16:48 EDT , Assessment & Plan Assessment/Plan (1) Chest pain, atypical: PLAN: Plan This is 68-year-old gentleman with history of CAD status post multiple stents came in for evaluation of chest pain. 1. Atypical chest pain, most likely unstable angina: Patient is being admitted in PCU. SHARRI risk score is 5 out of 7. Chest x-ray and EKG does not show acute abnormality. Patient had last echo in October 2023 reported as EF 60% moderate 2+ MR, aortic sclerosis LA moderately enlarged. Cardiac cath in October 2023 during previous admission shows multivessel CAD, 50% proximal LAD, 50 to 60% mid LAD, 70% proximal OM 2 unchanged, 95% calcified proximal RCA, mid RCA and 70% distal RCA. Patient had PTCA/RODDY of the proximal and mid RCA and distal RCA. Patient was discharged on aspirin, Brilinta, statin Coreg losartan, sublingual nitro and Ranexa. But this admission, home medication does not show carvedilol. Patient has angioedema with losartan. Plan: 1 more troponin and repeat EKG. Pharmacological nuclear stress test for tomorrow AM. Patient does not have chest pain at rest. 2. CAD with multiple stents, mild MR: As mentioned above. Patient also history of multiple syncope thought to be neurological and had loop recorder which was removed in October 2023. 3. Type 2 diabetes mellitus: Hold metformin and pioglitazone. Glucose is high at 264 in BMP. Lantus 10 units subcutaneous at bedtime daily. Accu-Cheks ACH cover with Humalog sliding scale. Repeat A1c during last admission was 7.3%. 4. Mild chronic normocytic normochromic anemia: Patient on ferrous sulfate continued. 5. Hypertension: Patient on amlodipine and other medications as mentioned above. BP was elevated in ED systolic 172 but has improved now. Monitor BP. Living will/advanced directive/end of life care: Patient does have living will or advanced directive. His brother present in ED is power of immigration attorney for health. After discussion of benefits/risks procedures involved with full code, DNR CC arrest and DNR CC, the patient opted for DNR CC arrest with no intubation Patient doesn't want artificial life support including intubation, tube feed, ventilator and/chest compression, central venous catheter, vasopressor and DC shock if needed Total time spent in icmi-sy-osli encounter in discussion of advanced directive 17 minutes. Laboratory Results 12/03/23 14:50: WBC 4.6, RBC 3.83 L, Hgb 11.4 L, Hct 33.3 L, MCV 86.9, MCH 29.8, MCHC 34.2, RDW Std Deviation 39.1, RDW Coeff of Megan 12.3, Plt Count 189, MPV 9.2, Immature Gran % (Auto) 0.900, Neut % (Auto) 65.7, Lymph % (Auto) 19.4, [place] % (Auto) 11.2 H, Eos % (Auto) 1.9, Baso % (Auto) 0.9, Absolute Neuts (auto) 3.0, Absolute Lymphs (auto) 0.90, Nucleated RBC % 0, PT 13.0, INR 1.0, APTT 27.7, Sodium 134 L, Potassium 3.9, Chloride 101, Carbon Dioxide 28.0, Anion Gap 5, BUN 23 H, Creatinine 1.02, Est GFR (MDRD) Af Amer 93, Est GFR (MDRD) Non-Af 77, BUN/Creatinine Ratio 22.5 H, Glucose 264 H, Calcium 9.0, Troponin I High Sens 6 12/03/23 16:50: Troponin I High Sens 6 Clinical Impression(s) from Imaging Studies Chest X-Ray 12/03/23 15:49 IMPRESSION: No acute radiographic abnormalities. Charges/Coding Visit Charges Inpatient E&M: 33898 Init Hosp L3 Procedures Hospitalists Procedures: 29202 Advncd Care Plan 30 Min
[2023-12-03 19:36] VITALS: BMI 27.4
[2023-12-03 19:55] VITALS: BP 160/92; PULSE 67; RESP 20; TEMP 36.7; O2SAT 94
[2023-12-03 20:16] VITALS: PULSE 67
[2023-12-03] MEDS: Metoprolol(XL)Succ 25 MG Tablet 12.5 MG PO (20:16)
--- NOTE | 2023-12-03 20:57 | EKG12_ITS ---
Test Reason : AM EKG Blood Pressure : / mmHG Vent. Rate : 062 BPM Atrial Rate : 062 BPM P-R Int : 158 ms QRS Dur : 088 ms QT Int : 430 ms P-R-T Axes : 019 017 002 degrees QTc Int : 436 ms Normal sinus rhythm Possible Inferior infarct , age undetermined Abnormal ECG When compared with ECG of 03-DEC-2023 21:50, MANUAL COMPARISON REQUIRED, DATA IS UNCONFIRMED Confirmed by SHAHID POTTER, HUSSAIN ([id number]), legal editor CODY YOON ([id number]) on 12/04/2023 1:34:31 PM Referred By: JOE Confirmed By:HUSSAIN KEY MD
[2023-12-03] MEDS: 0.9% Normal Saline (1000mL) 1,000 ML 75 ML IV (21:47)
[2023-12-03] MEDS: TICAGRELOR 90 MG TABLET PO (21:49)
[2023-12-03] MEDS: Ranolazine 500 MG Tablet 1000 MG PO (21:49)
[2023-12-03] MEDS: Heparin Injection (Vial) 5,000 UNIT/ML VIAL 5000 UNIT SC (21:50)
[2023-12-03] MEDS: 0.9% Saline Lock 10 ML Syringe IV (21:53)
[2023-12-03] MEDS: Insulin Lispro 100 UNIT/ML INSULN.PEN SC (22:00)
[2023-12-03] MEDS: Insulin Glargine-YFGN 100 UNIT/ML Pen 10 UNIT SC (22:01)
[2023-12-03 22:36] LABS: Bacteria 0 SEEN /hpf (None Seen); Mucous, Urine 0 SEEN /hpf (<or=2+); Red Blood Cells-Urine 0 SEEN /hpf (0-5); Squamous Epithelial Cells - UA 0 SEEN /hpf (0-5); White Blood Cells 0 SEEN /hpf (0-5)
[2023-12-03 22:38] LABS: Color, Urine Yellow (Yellow); Glucose, Dipstick 50 mg/dl (Normal); Ketone-Dipstick Negative (Negative); Leukocyte Esterase-Dipstick Negative /ul (Negative); Nitrite-Dipstick Negative (Negative); Occult Blood-Urine Negative /ul (Negative); Protein-Dipstick Negative (Negative); Specific Gravity, Urine 1.015 (1.002-1.030); Urine Bilirubin Dipstick Negative (Negative); Urine Clarity Clear (Clear); Urine Urobilinogen Normal (Normal)
[2023-12-03 22:43] LABS: Bedside Glucose 172 mg/dL (74-106)
[2023-12-03 23:05] LABS: Troponin-I HS 7 pg/mL (3.0-78.0)
[2023-12-04 01:50] VITALS: BP 137/74; PULSE 61; RESP 18; TEMP 36.4; O2SAT 96
--- NOTE | 2023-12-04 05:55 | EKG12_ITS ---
Test Reason : CHEST PAIN Blood Pressure : / mmHG Vent. Rate : 064 BPM Atrial Rate : 064 BPM P-R Int : 162 ms QRS Dur : 086 ms QT Int : 418 ms P-R-T Axes : 040 007 003 degrees QTc Int : 431 ms Normal sinus rhythm Inferior infarct , age undetermined Abnormal ECG When compared with ECG of 03-DEC-2023 14:19, MANUAL COMPARISON REQUIRED, DATA IS UNCONFIRMED Confirmed by SHAHID POTTER, HUSSAIN ([id number]), general expeditor CODY YOON ([id number]) on 12/04/2023 1:34:43 PM Referred By: JOE Confirmed By:HUSSAIN KEY MD
[2023-12-04 06:26] VITALS: BP 130/75; PULSE 59; RESP 18; TEMP 36.3; O2SAT 95
[2023-12-04 06:29] LABS: Absolute Lymphocyte Count 1.03 X10^3/uL (0.83-4.51); Absolute Neutrophil Count 3.2 X10^3/uL (2.0-7.7); Basophil# 0.04 X10^3/uL; Basophil% 0.8 % (0-1); Eosinophil# 0.22 X10^3/uL; Eosinophils% 4.3 % (0-5); Hematocrit 34.9 % (40-54); Hemoglobin 11.7 g/dL (13.0-16.5); Lymphocyte # 1.03 X10^3/ul (0.83-4.51); Lymphocyte % 20.3 % (19-41); Mean Corp Hgb Conc 33.5 g/dL (32-36); Mean Corpuscular Hgb 29.4 pg (27.0-32.0); Mean Corpuscular Volume 87.7 fL (80-94); Mean Platelet Vol. 9.1 fl (6.2-12.0); Monocyte# 0.52 X10^3/uL; Monocyte% 10.3 % (0-10); NRBC Flagged by Analyzer 0 % (0-5); Neutrophil # 3.24 X10^3/uL (2.7-7.7); Neutrophil % 63.9 % (47-70); Platelet Count 187 K/mm3 (150-450); RBC Distribution Width CV 12.5 % (11.6-14.6); RBC Distribution Width SD 40.1 fl (35.1-43.9); Red Blood Count 3.98 M/mm3 (4.6-6.2); White Blood Count 5.1 K/mm3 (4.4-11.0)
[2023-12-04] MEDS: Aspirin E.C. 81 MG Tablet PO (06:32)
[2023-12-04 06:55] LABS: Bedside Glucose 173 mg/dL (74-106)
[2023-12-04 06:59] LABS: Anion Gap 6 (5-15); BUN 15 mg/dL (7-18); BUN/Creat Ratio 15.7 RATIO (10-20); Chloride 106 mmol/L (98-107); Cholesterol 133 mg/dL (200); Creatinine, Serum 0.96 mg/dL (0.70-1.30); EST Glomerular Filtration Rate 83 mL/min (>60); Est Glom Filt Rate - Afr Amer 100 mL/min (>60); Estimated Creatinine Clearance 73.93 ml/min; Glucose 167 mg/dL (74-106); High Density Lipoprotein 50 mg/dL; Potassium 3.9 mmol/L (3.5-5.1); Sodium Level 137 mmol/L (136-145); Thyroid Stim Hormone (TSH) 3.38 uIU/mL (0.358-3.74); Triglycerides 168 mg/dL; Very Low Density Lipoprotein 34 mg/dL (5-40)
[2023-12-04 07:45] VITALS: BP 154/77; PULSE 60; RESP 12; TEMP 35.6; O2SAT 95
[2023-12-04 07:51] VITALS: O2SAT 98
--- NOTE | 2023-12-04 08:19 | NURSING ---
To stress test via wheelchair accompanied by staff.
[2023-12-04 09:56] VITALS: BP 154/74; PULSE 60
[2023-12-04] MEDS: Metoprolol(XL)Succ 25 MG Tablet 12.5 MG PO (09:56)
[2023-12-04] MEDS: Ranolazine 500 MG Tablet 1000 MG PO (09:56)
[2023-12-04] MEDS: Ferrous Sulfate 325 MG Tablet PO (09:56)
[2023-12-04] MEDS: Pantoprazole Sodium 40 MG Tablet PO (09:56)
[2023-12-04] MEDS: TICAGRELOR 90 MG TABLET PO (09:56)
[2023-12-04] MEDS: amLODIPine 5 MG Tablet PO (10:00)
[2023-12-04] MEDS: Insulin Lispro 100 UNIT/ML INSULN.PEN SC (11:00)
[2023-12-04 11:19] LABS: Bedside Glucose 195 mg/dL (74-106)
--- NOTE | 2023-12-04 12:56 | CASEMGMT ---
Patient has order for discharge. RN CM in to discuss needs at discharge. Patient denies needs or help at discharge. Patient had no further questions or concerns.
--- NOTE | 2023-12-04 13:00 | DCINST_ITS ---
Discharge Instructions Diet Discharge Diet: Low fat / Low cholesterol Activity Discharge Activity: Return to Normal Activity Weight Bearing Status: Weight bearing as tolerated Dressing / Incision Call your doctor if you observe: Fever of 101 or Higher, Shortness of breath, Dizziness, Swelling in the ankles and Chest pain Follow Up Care Test Results: Test results from this visit will be discussed in further detail at your follow- up appointment, if applicable. Discharge Plan Admission Admit Date/Time: 12/03/23 17:42 Primary Reason for Your Visit: chest pain Attending Provider: Martina Cr Primary Care Provider: Nadir Abdalla Consulting Providers: Gildardo Walton Instructions Patient Instructions: ED Chest Pain, Noncardiac Discharge Orders/Prescriptions Prescriptions: Continued omega 9-yqg-sir-fish oil [Fish Oil] 1,000 mg (120 mg-180 mg) capsule 1,000 mg PO QDAY Patient Comments: 1200 mg PO QDAY metformin 500 mg tablet extended release 24 hr 1,000 mg PO BID atorvastatin 80 mg tablet 40 mg PO DAILY Hold Instructions: itching all over, no rash Galzin 50 mg (zinc) capsule 50 mg PO DAILY ranolazine 1,000 mg tablet extended release 12 hr 1,000 mg PO BID Qty: 60 11RF Brilinta 90 mg tablet 90 mg PO BID Qty: 60 11RF aspirin 81 MG tablet 81 mg PO DAILY@0800 amlodipine 5 mg tablet 5 mg PO DAILY Qty: 10 0RF pioglitazone 45 mg tablet 45 mg PO DAILY clopidogrel 75 mg tablet 75 mg PO DAILY pantoprazole 40 mg tablet,delayed release (DR/EC) 40 mg PO DAILY ferrous sulfate 325 mg (65 mg iron) tablet 325 mg PO BID nitroglycerin 0.4 mg tablet, sublingual 0.4 mg SUBLINGUAL Q5M PRN (Reason: Chest Pain) Qty: 25 6RF Rx Instructions: take one tablet every 5-15 to not exceed 3 tablets Referrals / Follow Up: Nadir Abdalla MD [Primary Care Provider] - Within 1 Week Disposition Disposition (needs filled in before D/C Order can be placed): Home, Self Care
--- NOTE | 2023-12-04 13:07 | PCM.DC.SUM ---
Providers Date of Admission: 12/03/23 Date of Discharge: 12/04/23 Primary Care Physician: Dr. Nadir Abdalla MD Reason For Visit: ATYPICAL CHEST PAIN Diagnosis Discharge Diagnosis (1) Chest pain, atypical: Status: Acute Code(s): R07.89 - Other chest pain Medications at Discharge Home Medications aspirin 81 mg tablet,delayed release 81 mg PO DAILY@0800 [facility] 09/13/13 omega 4-miq-kgf-fish oil 1,000 mg (120 mg-180 mg) capsule (Fish Oil) 1,000 mg PO QDAY supplement 01/06/18 metformin 500 mg tablet,extended release 24 hr 1,000 mg PO BID diabetes 07/25/20 ferrous sulfate 325 mg (65 mg iron) tablet 325 mg PO BID supplement 06/28/22 amlodipine 5 mg tablet 5 mg PO DAILY blood pressure #10 tabs 10/23/23 atorvastatin 80 mg tablet 40 mg PO DAILY cholesterol 10/30/23 ranolazine 1,000 mg tablet,extended release,12 hr 1,000 mg PO BID heart #60 tabs 10/30/23 ticagrelor 90 mg tablet (Brilinta) 90 mg PO BID anti platelet #60 tabs 10/30/23 zinc acetate 50 mg (zinc) capsule (Galzin) 50 mg PO DAILY supplement 10/30/23 pantoprazole 40 mg tablet,delayed release 40 mg PO DAILY reflux 12/03/23 pioglitazone 45 mg tablet 45 mg PO DAILY diabetes 12/03/23 nitroglycerin 0.4 mg sublingual tablet 0.4 mg sublingual Q5M PRN chest pain #30 tabs 12/04/23 Hospital Course Summary of Care Provided Minutes Spent on Discharge: 45 Hospital Course: Patient is a 68-year-old male with past medical history as outlined including CAD s/p stents as recently as October 2023 who was admitted to the ED on 12/03/2023 with a complaint of chest pain. Pain was worsened by exertion and was pressure-like. It was left-sided and radiated to his intrascapular area. It started while he was walking was relieved by rest. He had seen his cardiology team as recently as 10/30/2019 Also had a loop recorder in place on account of history of syncope but this had been removed on 11/24/2023. On admission troponins were not elevated and EKG showed no acute ST changes. Was admitted and managed for chest pain to rule out ACS. He had stress test done on 12/04/2019 from which was negative for any evidence of ischemia. Chest pain subsequently resolved and did not recur during admission. He did well and was discharged home on 12/04/2023. He was given a prescription for p.o. sublingual nitroglycerin. It was noted the patient was on both Plavix and Brilinta. Patient said he had been taking Brilinta and a Plavix. Plavix was therefore discontinued. Patient remained stable and was discharged home on 12/04/2023. He is follow-up with his primary care doctor and cardiology team within 1 to 2 weeks. Patient seen and examined prior to discharge. He had no active complaints and had an uneventful night. Review of symptoms otherwise negative. Labs and vitals reviewed. Home medication reviewed and reconciled. Physical Exam Const alert, oriented x3, no apparent distress and average body habitus General Appearance: cooperative, comfortable, well kempt and well developed Orientation / Consciousness: awake Exam Limitations: no limitations HEENT normocephalic, head/scalp atraumatic and hearing grossly normal bilaterally Mouth: oral and palatal mucosa normal and dry mucous membranes Eyes PERRL, EOMs intact bilaterally and conjunctivae normal Neck no lymphadenopathy and supple Resp normal respiratory effort, no retractions, no use of accessory muscles and clear to auscultation bilaterally Cardio regular rate, regular rhythm, S1 normal heart sound, S2 normal heart sound and no murmurs GI normal to inspection, nondistended, normoactive bowel sounds, soft to palpation, non-tender and non-distended Extremity normal to inspection, full ROM and no clubbing, cyanosis or edema Skin no rashes or lesions noted and no wounds Neuro CN's II-XII intact bilaterally, moves all extremities, no focal motor deficits and no sensory deficits noted Sensorium / Orientation: awake and alert Motor Exam: strength 5/5 throughout Psych affect normal Weight / BMI Weight Weight: 191 lb 9.307 oz Body Mass Index (BMI) 27.4 ABG / Lab / Microbiology Data 12/04/23 06:00 12/04/23 06:00 Laboratory: Laboratory Results - last 24 hr 12/03/23 14:50: WBC 4.6, RBC 3.83 L, Hgb 11.4 L, Hct 33.3 L, MCV 86.9, MCH 29.8, MCHC 34.2, RDW Std Deviation 39.1, RDW Coeff of Megan 12.3, Plt Count 189, MPV 9.2, Immature Gran % (Auto) 0.900, Neut % (Auto) 65.7, Lymph % (Auto) 19.4, [place] % (Auto) 11.2 H, Eos % (Auto) 1.9, Baso % (Auto) 0.9, Absolute Neuts (auto) 3.0, Absolute Lymphs (auto) 0.90, Nucleated RBC % 0, PT 13.0, INR 1.0, APTT 27.7, Sodium 134 L, Potassium 3.9, Chloride 101, Carbon Dioxide 28.0, Anion Gap 5, BUN 23 H, Creatinine 1.02, Est GFR (MDRD) Af Amer 93, Est GFR (MDRD) Non-Af 77, BUN/Creatinine Ratio 22.5 H, Glucose 264 H, Calcium 9.0, Troponin I High Sens 6 12/03/23 16:50: Troponin I High Sens 6 12/03/23 21:00: Urine Color Yellow, Urine Clarity Clear, Urine pH 8.0, Ur Specific [place] 1.015, Urine Protein Negative, Urine Glucose (UA) 50 H, Urine Ketones Negative, Urine Occult Blood Negative, Urine Nitrite Negative, Urine Bilirubin Negative, Urine Urobilinogen Normal, Ur Leukocyte Esterase Negative, Urine RBC 0 SEEN, Urine WBC 0 SEEN, Ur Squamous Epith Cells 0 SEEN, Urine Bacteria 0 SEEN, Urine Mucus 0 SEEN 12/03/23 21:57: POC Glucose 172 H 12/03/23 22:27: Troponin I High Sens 7 12/04/23 06:00: WBC 5.1, RBC 3.98 L, Hgb 11.7 L, Hct 34.9 L, MCV 87.7, MCH 29.4, MCHC 33.5, RDW Std Deviation 40.1, RDW Coeff of Megan 12.5, Plt Count 187, MPV 9.1, Immature Gran % (Auto) 0.400, Neut % (Auto) 63.9, Lymph % (Auto) 20.3, [place] % (Auto) 10.3 H, Eos % (Auto) 4.3, Baso % (Auto) 0.8, Absolute Neuts (auto) 3.2, Absolute Lymphs (auto) 1.03, Nucleated RBC % 0, Sodium 137, Potassium 3.9, Chloride 106, Carbon Dioxide 25.0, Anion Gap 6, BUN 15, Creatinine 0.96, Estim Creat Clear Calc 73.93, Est GFR (MDRD) Af Amer 100, Est GFR (MDRD) Non-Af 83, BUN/Creatinine Ratio 15.7, Glucose 167 H, Calcium 9.0, Triglycerides 168, Cholesterol 133, LDL Cholesterol 49, VLDL Cholesterol 34, HDL Cholesterol 50, TSH 3.38 12/04/23 06:30: POC Glucose 173 H 12/04/23 10:58: POC Glucose 195 H Radiography Diagnostic Testing: Radiology Impression Chest X-Ray 12/03/23 15:49 IMPRESSION: No acute radiographic abnormalities. Electronically Signed: Nura Crowder MD at 16:48 EDT , D/C Instructions Discharge Diet: Low fat / Low cholesterol Discharge Activity: Return to Normal Activity Weight Bearing Status: Weight bearing as tolerated Call your doctor if you observe: Fever of 101 or Higher, Shortness of breath, Dizziness, Swelling in the ankles and Chest pain Meaningful Use Info Meaningful Use Diagnoses (Choose all that apply): None applicable Discharge Plan Admission Admit Date/Time: 12/03/23 17:42 Primary Reason for Your Visit: chest pain Attending Provider: Martina Cr Primary Care Provider: Nadir Abdalla Consulting Providers: Gildardo Walton Instructions Patient Instructions: ED Chest Pain, Noncardiac Discharge Orders/Prescriptions Prescriptions: New nitroglycerin 0.4 mg tablet, sublingual 0.4 mg sublingual Q5M PRN (Reason: chest pain) Qty: 30 0RF Rx Instructions: do not exceed 3 doses per episode Continued omega 6-hyn-hpl-fish oil [Fish Oil] 1,000 mg (120 mg-180 mg) capsule 1,000 mg PO QDAY Patient Comments: 1200 mg PO QDAY metformin 500 mg tablet extended release 24 hr 1,000 mg PO BID atorvastatin 80 mg tablet 40 mg PO DAILY Hold Instructions: itching all over, no rash Galzin 50 mg (zinc) capsule 50 mg PO DAILY ranolazine 1,000 mg tablet extended release 12 hr 1,000 mg PO BID Qty: 60 11RF Brilinta 90 mg tablet 90 mg PO BID Qty: 60 11RF aspirin 81 MG tablet 81 mg PO DAILY@0800 amlodipine 5 mg tablet 5 mg PO DAILY Qty: 10 0RF pioglitazone 45 mg tablet 45 mg PO DAILY pantoprazole 40 mg tablet,delayed release (DR/EC) 40 mg PO DAILY ferrous sulfate 325 mg (65 mg iron) tablet 325 mg PO BID Discontinued clopidogrel 75 mg tablet 75 mg PO DAILY nitroglycerin 0.4 mg tablet, sublingual 0.4 mg SUBLINGUAL Q5M PRN (Reason: Chest Pain) Qty: 25 6RF Rx Instructions: take one tablet every 5-15 to not exceed 3 tablets Referrals / Follow Up: Nadir Abdalla MD [Primary Care Provider] - Within 1 Week Disposition Disposition (needs filled in before D/C Order can be placed): Home, Self Care Charges/Coding Visit Charges Inpatient E&M: 23527 Disch Hosp >30min
[2023-12-04 13:08] VITALS: BP 160/78; PULSE 65; RESP 12; TEMP 36.4; O2SAT 98
--- NOTE | 2023-12-04 13:59 | NURSING ---
Instructed that patient is to take the Brilinta only and is not to take both Brilinta and Plavix.
--- NOTE | 2023-12-04 18:06 | STRESSREP ---
Stress Test Report Pharmacologic myocardial perfusion stress test. 68-year-old male with a history of chest pain Resting EKG demonstrates sinus rhythm with a rate of 67 bpm. Resting blood pressure is 188/90 mmHg. 0.4 mg of regadenoson was infused per usual protocol followed by rapid intravenous saline flush injection. Continuous EKG monitoring was performed. The maximum heart rate was 83 bpm which was 55 beats of max impacted heart rate the maximum workload was 1 metabolic equivalent. At rest there were no ST or T wave changes noted to suggest ischemia and at peak infusion nonspecific ST changes were noted which did not meet the criteria for ischemia. No clinical angina is noted. The final blood pressure was 150/78 mmHg. Myocardial perfusion protocol. 11.8 mCi of technetium 99m sestamibi was injected at rest. 0.4 mg of regadenoson was infused per usual protocol. At peak infusion 34.5 mCi of technetium 99m sestamibi was injected stress images were obtained stress and rest images were reconstructed and compared in the short axis vertical long and horizontal long axis. Gated images were also obtained. Perfusion SPECT analysis: Review of the stress images demonstrate normal uptake of tracer noted in all areas of the myocardium. The resting images similar demonstrated normal uptake of tracer noted in all areas of the myocardium. No areas of reversibility are noted to suggest ischemia and no previous infarct is noted. Gated SPECT analysis: The gated ejection fraction is 68%. Conclusion: Normal pharmacologic myocardial perfusion stress test. Preserved ejection fraction.
== END 2023-12-04 11:51 | disposition home or self-care (01) ==
LOC: ED 18:09 → PCU 18:22
PROVIDERS: Admitting Provider Internal Medicine; Emergency Provider Emergency Medicine; PCP Family Medicine; Visit Provider Student in an Organized Health Care Education/Training Program
DX: R07.89 Other chest pain (principal); E11.9 Type 2 diabetes mellitus without complications; I10 Essential (primary) hypertension; R00.2 Palpitations; I25.10 Atherosclerotic heart disease of native coronary artery without angina pectoris; Z86.16 Personal history of COVID-19; E78.5 Hyperlipidemia, unspecified; R42 Dizziness and giddiness; Z79.82 Long term (current) use of aspirin; Z79.899 Other long term (current) drug therapy; Z79.84 Long term (current) use of oral hypoglycemic drugs; Z79.02 Long term (current) use of antithrombotics/antiplatelets; Z95.5 Presence of coronary angioplasty implant and graft; Z79.01 Long term (current) use of anticoagulants; R06.02 Shortness of breath; N40.0 Benign prostatic hyperplasia without lower urinary tract symptoms
CPT/HCPCS: 36415; 71045; 78452; 80048; 80061; 81001; 82962; 84443; 84484; 85025; 85610; 85730; 93005; 93017; 94668; 96360; 96361; 96372; 97162; 99221; 99285; A9500; J7030; A4216; G0378; J2785

== ENCOUNTER 2023-12-29 14:15 | Outpatient (RCR) | payer MEDICARE, SELFPAY ==
[2023-11-19 13:37] VITALS: BMI 27.8
--- NOTE | 2023-12-19 09:43 | CR.ITP_ITS ---
Exercise - Initial Assessment Visit Session #:: 7 Nutrition - Initial Assessment Weight Mgt (Other Care) Height: 5 ft 10 in Weight:: 190 lb 8 oz BMI: 27.3 Psychosocial - Initial Assess Target Goals Target Goals Patient Health Questionnaire PHQ-9 Screening 30-Day Re-eval Assessment: 1. Little interest or pleasure in doing things: Not at all 2. Feeling down, depressed, or hopeless: Not at all 3. Trouble falling or staying asleep, or sleeping too much: Nearly every day 4. Feeling tired or having little energy: Nearly every day 5. Poor appetite or overeating: Nearly every day 6. Feeling bad about yourself -- or that you are a failure or have let yourself or your family down: Not at all 7. Trouble concentrating on things, such as reading the newspaper or watching television: Not at all 8. Moving or speaking so slowly that other people could have noticed. Or the opposite - being so fidgety or restless that you have been moving around a lot more than usual: Not at all 9. Thoughts that you would be better off , or of hurting yourself in some way: Not at all How difficult have these problems made it for you to do your work, take care of things at home, or get along with other people?: Somewhat difficult Total Score: 9 Self-Efficacy 6-Item Scale 30-Day Re-eval Assessment: We would like to know how confident you are in doing certain activities. Please select your confidence level for: Fatigue Select Number: 10 Physical Discomfort or Pain Select Number: 6 Emotional Distress Select Number: 5 Other Symptoms or Health Problems Select Number: 8 Different Tasks and Activities Select Number: 9 Medication Select Number: 8 Total Score:: 7 Nutrition Survey Nutrition Survey Instructions Scoring Instructions Exercise - 30-day Assessment Visit Date of Eval: 12/19/23 Session #:: 7 Physician Prescribed Exercise Modalities: Treadmill, Airdyne and NuStep Frequency: 3x/week for 12 weeks [36 sessions] Intensity: 60-80% of age predicted maximum heart rate reserve Duration: 30 - 45 minutes Current METSs:: 3.2 Target Heart Rate:: 90-105 Current RPE:: 12 Maximum Excercise HR:: 114 Resting Blood Pressure: 140/80 Maximum Exercise Blood Pressure: 158/78 EKG Type: NSR to ST with a rare pac,pvc. Vemt bigeminy Outcomes & Goals Goals:: Verbalizes understanding of THR, RPE & goal METS by session 6, Documents in home exercise log/reports 30 min aerobic 5 day/wk by DC, Demonstrates accurate pulse taking by DC and Other additional outcome/goals: see below Intervention & Plan Exercise Program Goals: Instruct on personal THR & RPE, Instruct on MET level & personal MET goal, Show patient to take own pulse /validate performance until accurate, Instruct on home exercise and Other additional plan/int 30-day Reassessments 30 day Reassessments:: Progressing Reassessment Notes & Comments:: RPE explained Physical Activity Home Exercise Physical Activity - Home Exercise: Safe Exercise, Warm-up, Self-monitoring, Cool-Down, Home Exercise > 30 min Daily and Sitting Time <3 hours/daily Outcomes & Goals Outcomes/Goals: Demonstrates correct Warm-up/exercise Cool-Down (S3) if = 2.5 METs, Verbalizes symptoms of exercise intolerance by Session 3 (S3), Demonstrate safe equipment use (S3) & follows exercise prescrition (6) and Other: See below Intervention & Plan Plan/Intervention: Instruct warm-up & cool-down if exercising at > 2 METs, Instruct on symptoms of exercise intolerance & actions to take, Instruct & monitor on saf, Assess intial functional capacity & safety risk and Other See below 30-day Reassessments 30 day Reassessments:: Progressing Reassessment Notes & Comments:: warm up encouraged Nutrition - 30-Day Assessment Program Goals Nutrition Program Goals Patient has diagnosis of Hyperlipidemia (ICD E78)?: Yes Visit Date of Eval: 12/19/23 Session #:: 7 Cholesterol/Lipids (Other Core Measures) Determine presence & major risk factors that modify LDL goal: Hypertension or hypertensive medication, Low HDL cholesterol <40 mg/dL*, Family history of premature CHD in Male < 55 years: female <65 yearsFa and Age men > 45 years; women >/= 55 years Outcomes/Goals: Pt IDs own risk factors & lifestyle modifications by Session 10, Verbalizes symptoms of angina & response by session 3., Pt independently manages and Other Additional Outcomes/Goals: Intervention/Plan: Advocate for lipid panel cholesterol medication if applicable, Instruct on personal lipid levels & lipid goals/NCEP guidelines, Instruct on cholesterol and Other additional plan/int Referral to dietitian:: No 30-day Reassessments:: Progressing Reassessment Notes & Comments:: risk factors reviewed Diabetes (Other Core Measures) Diabetes Type: Diagnosis Type II ICD-10 E11 Outcomes/Goals:: Able to state symptoms of, Able to state, Able to state and Other additional Intervention/Plan:: Instruct on, Refer to, Instruct on and Other 30-day Reassessments:: Met Weight Mgt (Other Care) Height: 5 ft 10 in Weight:: 190 lb 8 oz BMI: 27.3 Diagnosis Overweight/Obesity BMI> 30% ICD-10 E66: No Diagnosis High BMI/Morbid Obesity BMI> 35% ICD-10 Z68: No Outcomes/Goals: Pt sets, maintains & shows weight loss goal & trend during rehab and Other additional outcomes/goals Intervention/Plan: Instruct on ideal BMI & set weight loss goal w/patient, Assist pt to ID & incorporate diet changes for weight loss by S9, Refer to Structured Weight Loss program as appropriate, Encourage goal of using 250- 300dcal per session for weight loss and Other additional plan/interventions 30 day Reassessments:: Progressing Reassessment Notes & Comments:: pt to attend nutrition class Healthy Eating Habits Will attend diet classes:: Yes Outcomes/Goals:: Consume diet rich in vegs,fruits,whole grain/high fiber,fish,lean meat, Limit sat/trans fats,cholesterol & added salts & sugars and Other additional outcome/goals: Intervention/Plan:: Assess current eating habits and Other Additional plan/interventions 30-day Reassessments:: Progressing Reassessment Notes & Comments:: pt to attend nutrition class Education Gave educational materials for:: Signs & symptoms of hypoglycemia, Signs & symptoms of hyperglycemia, Relate diabetes to coronary artery disease and Healthy eating Nutrition - 60-Day Assessment Weight Mgt (Other Care) Height: 5 ft 10 in Weight:: 190 lb 8 oz BMI: 27.3 Core - 30-Day Assessment Visit Date of Eval: 12/19/23 Session #:: 7 Medication Compliance Preventative Medication(s):: Aspirin and Statin/lipid H/O mental health issues: depression, anxiety, or addiction?: No Doesn?t believe in the benefits of treatment?: No Believes medications are unnecessary or harmful?: No Has a concern about medication side effects?: No Expresses concern over the cost of medications?: No Outcomes/Goals: Verbalizes medications,desired effect & common side effects @ DC, Pt self-reports following medication regimen, Keeps card in wallet w/medications listed by DC and Other additional outcome/goals: Interventions/plans: Instruct on medication effects & side effects, Review medication list w/patient every two weeks, Instruct importance of taking meds as ordered & assist problem solving and Other additional 30-day Reassessments:: Progressing Reassessment Notes & Comments:: pt encouraged to take his meds Tobacco Use Tobacco Use: Non-smoker Hypertension Hypertension Diagnosis:: Hypertension ICD-10 I10 Resting Blood Pressure:: 140/80 [place] [employer] Hypertension Guidelines Outcomes/Goals: Able to verbalize/achieve optimal blood pressure <130/80, Incorporates diet changes & exercise for blood pressure control by DC and Other additional outcomes/goals Interventions/plan: Instruct on optimal blood pressure, hypertension & medications, Instruct on effects of sodium, alcohol, stress, exercise &hypertension and Other additional plan/interventions 30 day Reassessments:: Progressing Reassessment Notes & Comments:: pt encouraged to take his meds Tobacco Cessation Referral Smoking Cessation Referral:: No Individual Education/Counseling:: No Education Schedule Given:: Yes Psychosocial - 30-Day Assess VIsit Date of Eval: 12/19/23 Session #:: 7 History of previous Mental disease:: No Target Goals Target Goals Outcomes/Goals: See list Psychosocial Outcomes/Goals:: ID's personal stressors & 2 strategies to manage stress by discharge and Other Additional outcome/goals: Intervention/Plan: See List Interventions/Plan:: Assess stressors,coping strategies & signs of derpression on admission, Instruct/assist pt to develop coping & personal stress Mgt strategies, Refer to Behavioral Health if appropriate, Refer to Physician if ap propriate, Instruct patient to recognize signs & symptoms of depression, Instruct patient to recog and Other additional plan/intervention 30-day Reassessments: 30 day Reassessments:: Met Psychosocial - 60-Day Assess Target Goals Target Goals Outcomes/Goals: See list Psychosocial Outcomes/Goals:: ID's personal stressors & 2 strategies to manage stress by discharge and Other Additional outcome/goals: Psychosocial - 90-Day Assess Target Goals Target Goals Psychosocial - Final Assessmen Target Goals Target Goals Nutrition - 90-Day Assessment Weight Mgt (Other Care) Height: 5 ft 10 in Weight:: 190 lb 8 oz BMI: 27.3 Nutrition - Final Assessment Weight Mgt (Other Care) Height: 5 ft 10 in Weight:: 190 lb 8 oz BMI: 27.3
[2023-12-19 09:52] VITALS: BP 140/80; BMI 27.3
== END 2023-12-30 23:59 ==
LOC: CR 14:15
PROVIDERS: PCP Family Medicine; Referring Provider Internal Medicine Cardiovascular Disease; Visit Provider Internal Medicine Cardiovascular Disease
DX: Z95.5 Presence of coronary angioplasty implant and graft (principal); I25.10 Atherosclerotic heart disease of native coronary artery without angina pectoris; I10 Essential (primary) hypertension; R55 Syncope and collapse
CPT/HCPCS: 93798

== ENCOUNTER 2024-01-30 14:15 | Outpatient (RCR) | payer MEDICARE, SELFPAY ==
[2023-12-19 09:52] VITALS: BMI 27.3
[2023-12-31 00:44] VITALS: BP 140/80
--- NOTE | 2024-01-19 06:49 | PCM.CR.ITP ---
Nutrition - Initial Assessment Weight Mgt (Other Care) Height: 5 ft 10 in Weight:: 187 lb 8 oz BMI: 26.9 Psychosocial - Initial Assess Target Goals Target Goals Referral to Behavioral Health PS - Interventions: Yes: Attend Stress Management Classes and No: Referral to Behavioral Health if PHQ-9 score >9:, No: Referral to [facility] and No: Referral to Physician if PHQ-9 if score is 5-9: Patient Health Questionnaire PHQ-9 Screening 60-Day Re-eval Assessment: 1. Little interest or pleasure in doing things: Not at all 2. Feeling down, depressed, or hopeless: Not at all 3. Trouble falling or staying asleep, or sleeping too much: Several days 4. Feeling tired or having little energy: Several days 5. Poor appetite or overeating: Several days 6. Feeling bad about yourself -- or that you are a failure or have let yourself or your family down: Not at all 7. Trouble concentrating on things, such as reading the newspaper or watching television: Not at all 8. Moving or speaking so slowly that other people could have noticed. Or the opposite - being so fidgety or restless that you have been moving around a lot more than usual: Not at all 9. Thoughts that you would be better off , or of hurting yourself in some way: Not at all How difficult have these problems made it for you to do your work, take care of things at home, or get along with other people?: Not difficult at all Total Score: 3 Self-Efficacy 6-Item Scale 60-Day Re-eval Assessment: We would like to know how confident you are in doing certain activities. Please select your confidence level for: Fatigue Select Number: 8 Physical Discomfort or Pain Select Number: 9 Emotional Distress Select Number: 9 Other Symptoms or Health Problems Select Number: 10 Different Tasks and Activities Select Number: 8 Medication Select Number: 9 Total Score:: 8 Nutrition Survey Nutrition Survey Instructions Scoring Instructions Exercise - 60-day Assessment Visit Date of Eval: 01/19/24 Session #:: 17 Physician Prescribed Exercise Modalities: Treadmill, Airdyne and NuStep Frequency: 3x/week for 12 weeks [36 sessions] Intensity: 60-80% of age predicted maximum heart rate reserve Duration: 30 - 45 minutes Current METSs:: 4.5 Target Heart Rate:: 112-128 Current RPE:: 12-14 Resting Blood Pressure: 136/64 Maximum Exercise Blood Pressure: 144/64 EKG Type: NSR to sinus tach with rare PACs, PVCs. Current Physical Activity or Exercising minutes: 37:44 Outcomes & Goals Goals:: Verbalizes understanding of THR, RPE & goal METS by session 6, Documents in home exercise log/reports 30 min aerobic 5 day/wk by DC and Demonstrates accurate pulse taking by DC Intervention & Plan Exercise Program Goals: Instruct on personal THR & RPE, Instruct on MET level & personal MET goal, Show patient to take own pulse /validate performance until accurate and Instruct on home exercise 30-day Reassessments 30 day Reassessments:: Met Physical Activity Home Exercise Physical Activity - Home Exercise: Safe Exercise, Warm-up, Self-monitoring, Cool-Down, Home Exercise > 30 min Daily and Sitting Time <3 hours/daily Outcomes & Goals Outcomes/Goals: Demonstrates correct Warm-up/exercise Cool-Down (S3) if = 2.5 METs, Verbalizes symptoms of exercise intolerance by Session 3 (S3) and Demonstrate safe equipment use (S3) & follows exercise prescrition (6) Intervention & Plan Plan/Intervention: Instruct warm-up & cool-down if exercising at > 2 METs, Instruct on symptoms of exercise intolerance & actions to take, Instruct & monitor on saf and Assess intial functional capacity & safety risk 30-day Reassessments 30 day Reassessments:: Met Nutrition - 30-Day Assessment Weight Mgt (Other Care) Height: 5 ft 10 in Weight:: 187 lb 8 oz BMI: 26.9 Nutrition - 60-Day Assessment Program Goals Nutrition Program Goals Patient has diagnosis of Hyperlipidemia (ICD E78)?: Yes Visit Date of Eval: 01/19/24 Session #:: 17 Cholesterol/Lipids (Other Core Measures) Determine presence & major risk factors that modify LDL goal: Hypertension or hypertensive medication and Age men > 45 years; women >/= 55 years Outcomes/Goals: Pt IDs own risk factors & lifestyle modifications by Session 10, Verbalizes symptoms of angina & response by session 3. and Pt independently manages Intervention/Plan: Instruct on personal lipid levels & lipid goals/NCEP guidelines and Instruct on cholesterol Referral to dietitian:: Yes 30-day Reassessments:: Progressing Diabetes (Other Core Measures) Diabetes Type: Diagnosis Type II ICD-10 E11 Insulin dependent injection/pump?: Yes Non-Insulin Dependent?: Yes Do you monitor your blood sugar at home?: Yes Referral to Diabetic Clinic:: Yes Outcomes/Goals:: Able to state symptoms of, Able to state and Able to state Intervention/Plan:: Instruct on, Refer to and Instruct on 30-day Reassessments:: Met Weight Mgt (Other Care) Not Applicable: Yes Height: 5 ft 10 in Weight:: 187 lb 8 oz BMI: 26.9 Diagnosis Overweight/Obesity BMI> 30% ICD-10 E66: No Diagnosis High BMI/Morbid Obesity BMI> 35% ICD-10 Z68: No Outcomes/Goals: Pt sets, maintains & shows weight loss goal & trend during rehab Intervention/Plan: Instruct on ideal BMI & set weight loss goal w/patient 30 day Reassessments:: Met Healthy Eating Habits Will attend diet classes:: Yes Outcomes/Goals:: Consume diet rich in vegs,fruits,whole grain/high fiber,fish,lean meat and Limit sat/trans fats,cholesterol & added salts & sugars Intervention/Plan:: Assess current eating habits 30-day Reassessments:: Met Education Gave educational materials for:: Signs & symptoms of hypoglycemia, Signs & symptoms of hyperglycemia, Relate diabetes to coronary artery disease and Healthy eating Core - 60-Day Assessment Visit Date of Eval: 01/19/24 Session #:: 17 Medication Compliance Preventative Medication(s):: Aspirin, Ticagrelor/P2Y12 inhibitor and Statin/lipid H/O mental health issues: depression, anxiety, or addiction?: No Doesn?t believe in the benefits of treatment?: No Believes medications are unnecessary or harmful?: No Has a concern about medication side effects?: No Expresses concern over the cost of medications?: Yes ([facility] Otherwise, he couldn't afford them) Outcomes/Goals: Verbalizes medications,desired effect & common side effects @ DC, Pt self-reports following medication regimen and Keeps card in wallet w/medications listed by DC Interventions/plans: Instruct on medication effects & side effects, Review medication list w/patient every two weeks and Instruct importance of taking meds as ordered & assist problem solving 30-day Reassessments:: Met Tobacco Use Tobacco Use: Non-smoker Hypertension Hypertension Diagnosis:: Hypertension ICD-10 I10 Resting Blood Pressure:: 136/64 [place] [employer] Hypertension Guidelines Peak Exercise Blood Pressure:: 144/64 Outcomes/Goals: Able to verbalize/achieve optimal blood pressure <130/80 and Incorporates diet changes & exercise for blood pressure control by DC Interventions/plan: Instruct on optimal blood pressure, hypertension & medications and Instruct on effects of sodium, alcohol, stress, exercise &hypertension 30 day Reassessments:: Met Tobacco Cessation Referral Smoking Cessation Referral:: No Individual Education/Counseling:: No Education Schedule Given:: Yes Psychosocial - 30-Day Assess Target Goals Target Goals Referral to Behavioral Health PS - Interventions: Yes: Attend Stress Management Classes and No: Referral to Behavioral Health if PHQ-9 score >9:, No: Referral to [facility] and No: Referral to Physician if PHQ-9 if score is 5-9: Outcomes/Goals: See list Psychosocial Outcomes/Goals:: ID's personal stressors & 2 strategies to manage stress by discharge Psychosocial - 60-Day Assess VIsit Date of Eval: 01/19/24 Session #:: 17 Not Applicable: Yes History of previous Mental disease:: No Target Goals Target Goals Psychosocial Test Tool Used:: PHQ-9 Questionnaire phq-9 Severity Referral to Behavioral Health PS - Interventions: Yes: Attend Stress Management Classes and No: Referral to Behavioral Health if PHQ-9 score >9:, No: Referral to [facility] and No: Referral to Physician if PHQ-9 if score is 5-9: Outcomes/Goals: See list Psychosocial Outcomes/Goals:: ID's personal stressors & 2 strategies to manage stress by discharge Intervention/Plan: See List Interventions/Plan:: Assess stressors,coping strategies & signs of derpression on admission, Instruct/assist pt to develop coping & personal stress Mgt strategies, Instruct patient to recognize signs & symptoms of depression and Instruct patient to recog 30-day Reassessments: 30 day Reassessments:: Met Psychosocial - 90-Day Assess Target Goals Target Goals Referral to Behavioral Health PS - Interventions: Yes: Attend Stress Management Classes and No: Referral to Behavioral Health if PHQ-9 score >9:, No: Referral to [facility] and No: Referral to Physician if PHQ-9 if score is 5-9: Psychosocial - Final Assessmen Target Goals Target Goals Referral to Behavioral Health PS - Interventions: Yes: Attend Stress Management Classes and No: Referral to Behavioral Health if PHQ-9 score >9:, No: Referral to [facility] and No: Referral to Physician if PHQ-9 if score is 5-9: Nutrition - 90-Day Assessment Weight Mgt (Other Care) Height: 5 ft 10 in Weight:: 187 lb 8 oz BMI: 26.9 Nutrition - Final Assessment Weight Mgt (Other Care) Height: 5 ft 10 in Weight:: 187 lb 8 oz BMI: 26.9
[2024-01-19 06:57] VITALS: BP 136/64; BMI 26.9
== END 2024-01-30 23:59 ==
LOC: CR 14:15
PROVIDERS: PCP Family Medicine; Referring Provider Internal Medicine Cardiovascular Disease; Visit Provider Internal Medicine Cardiovascular Disease
DX: Z95.5 Presence of coronary angioplasty implant and graft (principal); I25.10 Atherosclerotic heart disease of native coronary artery without angina pectoris; I10 Essential (primary) hypertension; R55 Syncope and collapse
CPT/HCPCS: 93798

== ENCOUNTER 2024-02-27 14:15 | Outpatient (RCR) | payer MEDICARE, SELFPAY ==
[2024-01-31 01:04] VITALS: BP 136/64; BP 140/80; BMI 27.3
--- NOTE | 2024-02-18 05:41 | PCM.CR.ITP ---
Exercise - Initial Assessment Physician Prescribed Exercise Modalities: Treadmill, Schwinn Airdyne AD-7 and SciFit Stepper Frequency: 3x/week for 12 weeks [36 sessions] Intensity: 60-80% of age predicted maximum heart rate reserve Nutrition - Initial Assessment Program Goals Nutrition Program Goals Patient has diagnosis of Hyperlipidemia (ICD E78)?: Yes Weight Mgt (Other Care) Height: 5 ft 10 in Weight:: 185 lb BMI: 26.5 Core - Initial Assessment Hypertension Resting Blood Pressure:: 122/54 [employer] Hypertension Guidelines Psychosocial - Initial Assess Target Goals Target Goals Referral to Behavioral Health PS - Interventions: Yes: Attend Stress Management Classes and No: Referral to Behavioral Health if PHQ-9 score >9:, No: Referral to [facility] and No: Referral to Physician if PHQ-9 if score is 5-9: Patient Health Questionnaire PHQ-9 Screening Discharge Assessment: 1. Little interest or pleasure in doing things: Not at all 2. Feeling down, depressed, or hopeless: Not at all 3. Trouble falling or staying asleep, or sleeping too much: Several days 4. Feeling tired or having little energy: Not at all 5. Poor appetite or overeating: Not at all 6. Feeling bad about yourself -- or that you are a failure or have let yourself or your family down: Not at all 7. Trouble concentrating on things, such as reading the newspaper or watching television: Not at all 8. Moving or speaking so slowly that other people could have noticed. Or the opposite - being so fidgety or restless that you have been moving around a lot more than usual: Not at all How difficult have these problems made it for you to do your work, take care of things at home, or get along with other people?: Not difficult at all Total Score: 1 Self-Efficacy 6-Item Scale Discharge Assessment: We would like to know how confident you are in doing certain activities. Please select your confidence level for: Fatigue Select Number: 10 Physical Discomfort or Pain Select Number: 10 Emotional Distress Select Number: 10 Other Symptoms or Health Problems Select Number: 10 Different Tasks and Activities Select Number: 10 Medication Select Number: 10 Total Score:: 10 Nutrition Survey Nutrition Survey Instructions Scoring Instructions Exercise - 30-day Assessment Physician Prescribed Exercise Modalities: Treadmill, Schwinn Airdyne AD-7 and SciFit Stepper Exercise - 60-day Assessment Physician Prescribed Exercise Modalities: Treadmill, Schwinn Airdyne AD-7 and SciFit Stepper Exercise - 90-day Assessment Physician Prescribed Exercise Modalities: Treadmill, Schwinn Airdyne AD-7 and SciFit Stepper Exercise - Final/Discharge Visit Date of Eval: 02/18/24 Session #:: 29 Physician Prescribed Exercise Modalities: Treadmill, Schwinn Airdyne AD-7 and SciFit Stepper Frequency: 3x/week for 12 weeks [36 sessions] Frequency: 3x/week for 12 weeks [36 sessions] Intensity: 60-80% of age predicted maximum heart rate reserve Intensity: 60-80% of age predicted maximum heart rate reserve Duration: 30 - 45 minutes Current METSs:: 5.0 Target Heart Rate:: 112-128 Current RPE:: 12-13 Maximum Heart Rate:: 121 Resting Blood Pressure: 122/54 Maximum Exercise Blood Pressure: 162/70 EKG Type: NSR to sinus tach with rare PAC & PVC. Rare episode bigeminy and trigeminy. Current Physical Activity or Exercising minutes: 37:24 Outcomes & Goals Goals:: Verbalizes understanding of THR, RPE & goal METS by session 6, Documents in home exercise log/reports 30 min aerobic 5 day/wk by DC and Demonstrates accurate pulse taking by DC Intervention & Plan Exercise Program Goals: Instruct on personal THR & RPE, Instruct on MET level & personal MET goal, Show patient to take own pulse /validate performance until accurate and Instruct on home exercise 30-day Reassessments 30 day Reassessments:: Met Physical Activity Home Exercise Physical Activity - Home Exercise: Safe Exercise, Warm-up, Self-monitoring, Cool-Down, Home Exercise > 30 min Daily and Sitting Time <3 hours/daily Outcomes & Goals Outcomes/Goals: Demonstrates correct Warm-up/exercise Cool-Down (S3) if = 2.5 METs, Verbalizes symptoms of exercise intolerance by Session 3 (S3) and Demonstrate safe equipment use (S3) & follows exercise prescrition (6) Intervention & Plan Plan/Intervention: Instruct warm-up & cool-down if exercising at > 2 METs, Instruct on symptoms of exercise intolerance & actions to take, Instruct & monitor on saf and Assess intial functional capacity & safety risk 30-day Reassessments 30 day Reassessments:: Met Nutrition - 30-Day Assessment Weight Mgt (Other Care) Height: 5 ft 10 in Weight:: 185 lb BMI: 26.5 Nutrition - 60-Day Assessment Weight Mgt (Other Care) Height: 5 ft 10 in Weight:: 185 lb BMI: 26.5 Core - Final Assessment Visit Date of Eval: 02/18/24 Session #:: 29 Medication Compliance Preventative Medication(s):: Aspirin, Ticagrelor/P2Y12 inhibitor, Statin/lipid and Beta seun H/O mental health issues: depression, anxiety, or addiction?: No Doesn?t believe in the benefits of treatment?: No Believes medications are unnecessary or harmful?: No Has a concern about medication side effects?: No Expresses concern over the cost of medications?: No Outcomes/Goals: Verbalizes medications,desired effect & common side effects @ DC, Pt self-reports following medication regimen and Keeps card in wallet w/medications listed by DC Interventions/plans: Instruct on medication effects & side effects, Review medication list w/patient every two weeks and Instruct importance of taking meds as ordered & assist problem solving 30-day Reassessments:: Met Tobacco Use Tobacco Use: Non-smoker Hypertension Hypertension Diagnosis:: Hypertension ICD-10 I10 Resting Blood Pressure:: 122/54 [place] [employer] Hypertension Guidelines Peak Exercise Blood Pressure:: 162/70 Outcomes/Goals: Able to verbalize/achieve optimal blood pressure <130/80 and Incorporates diet changes & exercise for blood pressure control by DC Interventions/plan: Instruct on optimal blood pressure, hypertension & medications and Instruct on effects of sodium, alcohol, stress, exercise &hypertension 30 day Reassessments:: Met Tobacco Cessation Referral Smoking Cessation Referral:: No Individual Education/Counseling:: No Education Schedule Given:: Yes Core - 60-Day Assessment Hypertension Resting Blood Pressure:: 122/54 [employer] Hypertension Guidelines Psychosocial - 30-Day Assess Target Goals Target Goals Referral to Behavioral Health PS - Interventions: Yes: Attend Stress Management Classes and No: Referral to Behavioral Health if PHQ-9 score >9:, No: Referral to [facility] and No: Referral to Physician if PHQ-9 if score is 5-9: Psychosocial - 60-Day Assess Target Goals Target Goals Referral to Behavioral Health PS - Interventions: Yes: Attend Stress Management Classes and No: Referral to Behavioral Health if PHQ-9 score >9:, No: Referral to [facility] and No: Referral to Physician if PHQ-9 if score is 5-9: Psychosocial - 90-Day Assess Target Goals Target Goals Referral to Behavioral Health PS - Interventions: Yes: Attend Stress Management Classes and No: Referral to Behavioral Health if PHQ-9 score >9:, No: Referral to [facility] and No: Referral to Physician if PHQ-9 if score is 5-9: Psychosocial - Final Assessmen VIsit Date of Eval: 02/18/24 Session #:: 29 Not Applicable: Yes History of previous Mental disease:: No Target Goals Target Goals Psychosocial Test Tool Used:: Ferrans Power QOL Cardiac and PHQ-9 Questionnaire phq-9 Severity Referral to Behavioral Health PS - Interventions: Yes: Attend Stress Management Classes and No: Referral to Behavioral Health if PHQ-9 score >9:, No: Referral to [facility] and No: Referral to Physician if PHQ-9 if score is 5-9: Outcomes/Goals: See list Psychosocial Outcomes/Goals:: ID's personal stressors & 2 strategies to manage stress by discharge Intervention/Plan: See List Interventions/Plan:: Instruct/assist pt to develop coping & personal stress Mgt strategies, Instruct patient to recognize signs & symptoms of depression and Instruct patient to recog 30-day Reassessments: 30 day Reassessments:: Met Nutrition - 90-Day Assessment Weight Mgt (Other Care) Height: 5 ft 10 in Weight:: 185 lb BMI: 26.5 Nutrition - Final Assessment Program Goals Patient has diagnosis of Hyperlipidemia (ICD E78)?: Yes Visit Date of Assessment:: 02/18/24 Session #:: 29 Cholesterol/Lipids (Other Core Measures) Triglycerides (mg/dL): 168 Total Cholesterol (mg/dL): 133 LDL Cholesterol (mg/dL): 49 HDL Cholesterol (mg/dL): 50 Determine presence & major risk factors that modify LDL goal: Hypertension or hypertensive medication and Age men > 45 years; women >/= 55 years Outcomes/Goals: Pt IDs own risk factors & lifestyle modifications by Session 10, Verbalizes symptoms of angina & response by session 3. and Pt independently manages Intervention/Plan: Instruct on personal lipid levels & lipid goals/NCEP guidelines and Instruct on cholesterol Referral to dietitian:: No 30-day Reassessments:: Met Diabetes (Other Core Measures) Diabetes Type: Not Applicable Weight Mgt (Other Care) Not Applicable: Yes Height: 5 ft 10 in Weight:: 185 lb BMI: 26.5 Diagnosis Overweight/Obesity BMI> 30% ICD-10 E66: No Diagnosis High BMI/Morbid Obesity BMI> 35% ICD-10 Z68: No Outcomes/Goals: Pt sets, maintains & shows weight loss goal & trend during rehab Intervention/Plan: Instruct on ideal BMI & set weight loss goal w/patient 30 day Reassessments:: Met Healthy Eating Habits Will attend diet classes:: Yes Outcomes/Goals:: Consume diet rich in vegs,fruits,whole grain/high fiber,fish,lean meat and Limit sat/trans fats,cholesterol & added salts & sugars Intervention/Plan:: Assess current eating habits 30-day Reassessments:: Met Education Gave educational materials for:: Healthy eating
[2024-02-18 05:48] VITALS: BP 122/54; BMI 26.5
== END 2024-02-29 23:59 ==
LOC: CR 14:15
PROVIDERS: PCP Family Medicine; Referring Provider Internal Medicine Cardiovascular Disease; Visit Provider Internal Medicine Cardiovascular Disease
DX: Z95.5 Presence of coronary angioplasty implant and graft (principal); I25.10 Atherosclerotic heart disease of native coronary artery without angina pectoris; I10 Essential (primary) hypertension; R55 Syncope and collapse
CPT/HCPCS: 93798

== ENCOUNTER 2024-03-01 10:47 | Outpatient (RCR) | payer MEDICARE, SELFPAY ==
[2024-03-01 00:36] VITALS: BP 122/54; BP 136/64; BP 140/80; BMI 27.3
== END 2024-03-31 23:59 ==
LOC: CR 10:47
PROVIDERS: PCP Family Medicine; Referring Provider Internal Medicine Cardiovascular Disease; Visit Provider Internal Medicine Cardiovascular Disease
DX: Z95.5 Presence of coronary angioplasty implant and graft (principal); I25.10 Atherosclerotic heart disease of native coronary artery without angina pectoris; I10 Essential (primary) hypertension; R55 Syncope and collapse
CPT/HCPCS: 93798

== ENCOUNTER → 2024-06-14 | Outpatient (CLI) | payer MEDICARE, SELFPAY ==
[2024-04-19 08:46] VITALS: BMI 26.5
== END | disposition home or self-care (01) ==
LOC: PSN 08:12
PROVIDERS: PCP Family Medicine; Referring Provider Physician Assistant Medical; Visit Provider Physician Assistant Medical
DX: R42 Dizziness and giddiness (principal); R53.83 Other fatigue; I65.23 Occlusion and stenosis of bilateral carotid arteries; Z95.5 Presence of coronary angioplasty implant and graft
CPT/HCPCS: 93225; 93226

== ENCOUNTER → 2024-07-28 | Outpatient (CLI) | payer MEDICARE, SELFPAY ==
[2024-04-19 08:46] VITALS: BMI 26.5
--- NOTE | 2024-07-28 09:31 | RAD_ITS ---
INDICATION: cath EXAMINATION/TECHNIQUE: X-RAY - XR Chest 2 Views COMPARISON: December 03, 2023 FINDINGS: LINES/DEVICES: None. LUNGS: No consolidation, edema or effusion. No pneumothorax. MEDIASTINUM AND CARDIOVASCULAR STRUCTURES: Cardiac silhouette not enlarged. Central airways and mediastinal contour are unremarkable. BONES AND SOFT TISSUES: Degenerative vertebral changes. RAD/Chest PA and Lateral IMPRESSION: No radiographic evidence of acute cardiopulmonary disease. Electronically Signed: Brijesh Patrick DO at 10:37 EST ,
[2024-07-28 09:49] LABS: Absolute Lymphocyte Count 1.17 X10^3/uL (0.83-4.51); Absolute Neutrophil Count 3.7 X10^3/uL (2.0-7.7); Basophil# 0.05 X10^3/uL; Basophil% 0.8 % (0-1); Eosinophil# 0.35 X10^3/uL; Eosinophils% 5.9 % (0-5); Hematocrit 38.2 % (40-54); Hemoglobin 13.1 g/dL (13.0-16.5); Lymphocyte # 1.17 X10^3/ul (0.83-4.51); Lymphocyte % 19.8 % (19-41); Mean Corp Hgb Conc 34.3 g/dL (32-36); Mean Corpuscular Hgb 29.2 pg (27.0-32.0); Mean Corpuscular Volume 85.3 fL (80-94); Mean Platelet Vol. 9.6 fl (6.2-12.0); Monocyte# 0.58 X10^3/uL; Monocyte% 9.8 % (0-10); NRBC Flagged by Analyzer 0 % (0-5); Neutrophil # 3.73 X10^3/uL (2.7-7.7); Platelet Count 216 K/mm3 (150-450); RBC Distribution Width CV 12.6 % (11.6-14.6); RBC Distribution Width SD 38.9 fl (35.1-43.9); Red Blood Count 4.48 M/mm3 (4.6-6.2); White Blood Count 5.9 K/mm3 (4.4-11.0)
[2024-07-28 09:59] LABS: International Normalized Ratio 0.9; Prothrombin Time (Protime)PT. 12.6 SECONDS (11.7-14.9)
[2024-07-28 10:20] LABS: Anion Gap 6 (5-15); BUN 17 mg/dL (7-18); BUN/Creat Ratio 16.5 RATIO (10-20); Calcium,Total 9.5 mg/dL (8.5-10.1); Chloride 107 mmol/L (98-107); Creatinine, Serum 1.03 mg/dL (0.70-1.30); EST Glomerular Filtration Rate 76 mL/min (>60); Est Glom Filt Rate - Afr Amer 91 mL/min (>60); Glucose 190 mg/dL (74-106); Potassium 4.2 mmol/L (3.5-5.1); Sodium Level 137 mmol/L (136-145)
== END | disposition home or self-care (01) ==
LOC: LAB 09:23
PROVIDERS: PCP Family Medicine; Referring Provider Physician Assistant Medical; Visit Provider Physician Assistant Medical
DX: R07.9 Chest pain, unspecified (principal); Z95.5 Presence of coronary angioplasty implant and graft
CPT/HCPCS: 36415; 71046; 80048; 85025; 85610

== ENCOUNTER → 2024-08-16 | Day surgery (SDC) | payer MEDICARE, SELFPAY ==
[2024-04-19 08:46] VITALS: BMI 26.5
[2024-08-13 09:58] VITALS: BMI 25.7
--- NOTE | 2024-08-16 09:23 | CL.D_ITS ---
Patient Name: PRESTON BATES Study Date: 08/16/2024 Performing: Jd Nickerson MD Ht: 70 inches 177.8 cm : 1955 Wt: 178.99 lbs 81.19 kg Age: 69 Gender: male BSA: 1.99 PROCEDURE(S) PERFORMED [id number])LHC/COR/LV CLINICAL PROFILE AND INDICATIONS Indications: Worsening Angina Heart Failure: None Stress/Imaging Stress/Image Study Performed: No CAD Presentations: Unstable angina. CONCLUSIONS Coronary disease with previously placed stents in all 3 vascular territories. Restenosis noted of the proximal right coronary artery stent. RECOMMENDATIONS Referred for immediate PCI DESCRIPTION OF PROCEDURE The patient arrived to the procedure lab. The risks and benefits of the procedure as well as a full description of our services here and current unavailability of surgical backup were fully explained to the patient and/or their significant other prior to the catheterization. The Timeout was completed, verifying the correct patient and procedure. The patient's procedural site was prepped and draped in the usual fashion. Local anesthetic was given subcutaneously to right radial region with Lidocaine 2%. Using a modified Seldinger technique, arterial access was obtained via the right radial artery, a 6Fr sheath was inserted. Left Coronary Artery selective angiography was performed in multiple views using a 5 Fr. 4.0 [place] catheter. Right Coronary Artery selective angiography was then performed in multiple views using a 5 Fr. 4.0 [place] catheter. Left Ventriculography was performed in SUAREZ projection using a 5 Fr. Pigtail catheter. LV to AO pullback pressures were then recorded. CORONARY ANGIOGRAPHY DOMINANCE: Right Dominant LEFT HEART ASSESSMENT Left Ventricular Ejection Fraction: by LV Gram 55 % Normal LV wall motion Normal Left Ventricular systolic function LEFT MAIN: Mild calcification, Angiographically normal LEFT ANTERIOR DESCENDING ARTERY: Previously placed stent in the mid left anterior descending artery is noted to be patent with a first diagonal vessel with moderate disease noted in the proximal segment and the stent noted to be patent. CIRCUMFLEX ARTERY: Nondominant vessel with previously placed proximal stent in the circumflex artery noted to be patent, second obtuse marginal branch with 70% stenosis in the AV groove branch with mild disease. RIGHT CORONARY ARTERY: Dominant right coronary artery stented in the proximal mid and distal segments with proximal in-stent stenosis of 80% mid mild disease and distal mild disease. The posterior descending artery has 40 to 50% diffuse disease. COMPLICATIONS PROCEDURE MEDICATIONS Versed 0.5 mg IV Fentanyl 25 mcg IV Versed 1 mg IV Oxygen: 2 L/min via nasal cannula Brilinta 90 mg PO 08/16/2024 07:06:47 Baby Aspirin (81mg) 1 Tabs PO 08/16/2024 07:06:52 Benadryl 50 mg IV @ 08/16/2024 08:21:45 Heparin given IA 08/16/2024 08:29:49 Solu-medrol 125 mg IV 08/16/2024 08:21:52 SUMMARY OF HEMODYNAMIC DATA Time AIR REST ECG 07:03:42 AO 157/39 (72) SA 08:37:18 AO 142/67 (101) 08:38:09 LV 141/-4, 6 08:43:41 LV 151/-1, 9 08:43:47 LV 130/0, 6 08:45:14 LV 140/0, 11 08:45:20 LVp 148/-5, 15 08:45:24 AOp 147/55 (96) 08:45:29 Art 142/56 (90) 08:47:33 Signed By Jd Nickerson MD On 08/16/2024 09:23:22 Signed By Jd Nickerson MD On 08/16/2024 09:22:56 Jd Nickerson MD
--- NOTE | 2024-08-16 10:27 | CL.I_ITS ---
Patient Name: PRESTON BATES Study Date: 08/16/2024 Performing: Blanka Cabrales MD Ht: 70 inches 177.8 cm : 1955 Wt: 178.99 lbs 81.19 kg Age: 69 Gender: male BSA: 1.99 PROCEDURE(S) PERFORMED IC12-([id number])RODDY W/WO PTCA, SINGLE CORONARY ARTERY CLINICAL PROFILE AND CO-MORBIDITIES Indications: Worsening Angina Heart Failure: None Stress/Imaging Stress/Image Study Performed: No CAD Presentations: Unstable angina. CONCLUSIONS Successful RODDY to ISR of RCA RECOMMENDATIONS DESCRIPTION OF PROCEDURE The patient arrived to the procedure lab. The risks and benefits of the procedure as well as a full description of our services here and current unavailability of surgical backup were fully explained to the patient and/or their significant other prior to the catheterization. The Timeout was completed, verifying the correct patient and procedure. The patient's procedural site was prepped and draped in the usual fashion. Local anesthetic was given subcutaneously to right radial region with Lidocaine 2% Using a modified Seldinger technique,arterial access was obtained via the right radial artery, a 6Fr sheath was inserted. Left Coronary Artery selective angiography was performed in multiple views using a 5 Fr. 4.0 [place] catheter. Right Coronary Artery selective angiography was then performed in multiple views using a 5 Fr. 4.0 [place] catheter. Left Ventriculography was performed in SUAREZ projection using a 5 Fr. Pigtail catheter. LV to AO pullback pressures were then recorded.The images were reviewed and options discussed. A decision was then made to proceed with an Intervention, IVUS or other adjunct procedure. JR 4 Guide catheter was inserted and engaged into the RCA. {L1} BMW Guide wire was advanced to the RCA. EUPHORA 3.0 X 12 Balloon catheter was inserted. Balloon catheter was advanced across lesion in the right coronary, proximal. PTCA balloon inflated at 12 atms for 36 secs. Angiogram performed pre balloon dilatation. PTCA balloon inflated at 12 atms for 8 secs. PTCA balloon inflated at 16 atms for 36 secs. Angiogram performed post balloon dilatation. WOLVERINE 3.0 X 10 Balloon catheter was inserted. Balloon catheter was advanced across lesion in the right coronary, proximal. Angiogram performed post balloon dilatation. Angiogram performed post balloon dilatation. MAITE FRONTIER 3.5 X 12 Drug Eluting stent was inserted. Drug Eluting stent was advanced across the lesion in the right coronary, proximal. Angiogram performed pre stent deployment. Angiogram performed post stent deployment. The arterial sheath was pulled and a TR Band was applied for hemostasis 10ML OF AIR INTERVENTION INFORMATION LESION SITE: RCA (Proximal) Lesion Complexity: High/C, chronic total occlusion: No, lesion at bifurcation: No, thrombus present: No, lesion length: 11 mm, culprit lesion: Yes, Previously treated lesion: Yes, Timeframe of previous treatment: Time unknown, Previously treated with a stent: Yes Stent Type: with stent type unknown, In-stent Thrombosis: No, In-stent restenosis: Yes Pre Stenosis: 80 % Pre intervention SHARRI flow: 3 PROCEDURE: Drug Eluting Stent with pre dilatation., Cutting Balloon Angioplasty Post Stenosis: 0 % Post intervention SHARRI flow: 3 Lesion Devices: Zavaleta .014 190cm BMW [place] Straight Cordis 6 Fr JR4 100cm Guide Catheter Medtronic SC EUPHORA RX 3.0x12 BALLOON [employer] cutting balloon 3.0x10 Medtronic 3.5 x 12 MAITE FRONTIER RODDY COMPLICATIONS No Complications PROCEDURE MEDICATIONS Versed 0.5 mg IV Fentanyl 25 mcg IV Versed 1 mg IV Oxygen: 2 L/min via nasal cannula Brilinta 90 mg PO 08/16/2024 07:06:47 Baby Aspirin (81mg) 1 Tabs PO 08/16/2024 07:06:52 Benadryl 50 mg IV @ 08/16/2024 08:21:45 Heparin given IA 08/16/2024 08:29:49 Heparin 5000 unit(s) IV 08/16/2024 09:37:39 Solu-medrol 125 mg IV 08/16/2024 08:21:52 SUMMARY OF HEMODYNAMIC DATA Time AIR REST ECG 07:03:42 AO 157/39 (72) SA 08:37:18 AO 142/67 (101) 08:38:09 LV 141/-4, 6 08:43:41 LV 151/-1, 9 08:43:47 LV 130/0, 6 08:45:14 LV 140/0, 11 08:45:20 LVp 148/-5, 15 08:45:24 AOp 147/55 (96) 08:45:29 Art 142/56 (90) 08:47:33 AO 138/60 (92) 09:45:34 AO 180/73 (120) 09:54:51 10:15:51 Signed By Blanka Cabrales MD On 08/16/2024 10:26:25 Blanka Cabrales MD
--- NOTE | 2024-08-16 10:49 | CRPHASE1 ---
Patient Communication Patient Information Former Patient:: Phase I and Phase II PHII Cardiac Rehab Discussed with Patient:: Yes Guide to Cardiac Rehab Given to Patient:: Yes Cardiac Rehab Facility Choice List Given to Patient:: Yes Communication to Cardiac Rehab Choice Program [facility] CR PHII:: Communication Given to CR Lye Bath Operator:: Blanka Cabrales Refer Phase II Cardiac Rehab:: Yes Sessions:: 36 sessions - 3 days/wk, 12 weeks Cardiac Rehabilitation Info Program Information Cardiac Rehabilitation Program Information: Cardiac Rehab The cardiac rehab team at [facility] consists of highly skilled exercise physiologists, nurses, respiratory therapists and physicians working together with you. Our purpose is to help you have a full recovery and achieve the goals you set for yourself. Over the years many of our patients have returned to activities they assumed they would never do again! We can help restore your confidence and motivation to make lifestyle changes that can have a significant impact on your health and quality of life! We can help answer questions and concerns you may have about exercise, lifestyle, medications, diet, stress and anxiety which are common following a hospitalization. WE monitor ECG and vital signs during exercise and discuss your progress with you and report to your physician(s). Cardiac Rehab is proven to help reduce readmissions, improve functional capacity and lower recurrence of problems with your heart. Our Cardiac Rehab program is Certified by the [place] [employer]-Vascular and Pulmonary [employer] (AACVPR) and Accredited by the [place] [employer] through our [facility]. You can contact us at . We invite you to call us with your questions or to get started in our program. If you have other questions or concerns be sure to ask your physician/provider during your follow-up visit. WE look forward to seeing you!
--- NOTE | 2024-08-16 10:50 | CRPH1.INST_ITS ---
General Education Discussed with Patient CAD and cardiac anatomy and function:: Patient communicates acknowledgment and Needs reinforcement Explanation of diagnoses and procedures:: Patient communicates acknowledgment and Needs reinforcement Sign/Symptoms of KS:: Patient communicates acknowledgment and Needs reinforcement Antiplatelet therapy: Patient communicates acknowledgment and Needs reinforcement Proper use of NTG-SL: Patient communicates acknowledgment and Needs reinforcement Emergency procedures and activation of EMS: Patient communicates acknowledgment and Needs reinforcement Compliance of all prescribed medications: Patient communicates acknowledgment and Needs reinforcement Smoking Risk Factors Patient Nicotine/Smoking Risk Factors Are:: Cigarettes Recommendations Recommendations Include:: Previous smoker; encourage continued cessation Response Code Nicotine/Smoking Response Code:: Patient communicates acknowledgment and Needs reinforcement Dyslipidemia Risk Factors Patient Dyslipidemia Risk Factors Are:: Total Cholesterol, Triglycerides, HDL and LDL Recommendations Recommendations Include:: Lipid profile not available Response Code Dyslipidemia Response Code:: Patient communicates acknowledgment and Needs reinforcement Overweight/Obesity Risk Factors Patient Overweight/Obesity Risk Factors Are:: BMI Normal [18-25 & < 65 years o ld] Response Code Overweight/Obesity:: Patient communicates acknowledgment and Needs reinforcement Hypertension Recommendations Recommendations Include:: BP <130/80 if diabetic and Decrease/maintain normal body weight Response Code Hypertension:: Patient communicates acknowledgment and Needs reinforcement Heart Disease Risk Factors Patient Heart Disease Risk Factors Are:: Previous cardiac event Recommendations Recommendations Include:: Educated family members of their risk and Educated family members of importance of prevention of heart disease Response Code Heart Disease Response Code:: Patient communicates acknowledgment and Needs reinforcement Sedentary Risk Factors Patient Sedentary Risk Factors Are:: Lack of regular exercise Recommendations Recommendations Include:: Aerobic exercise 5-7 times/week for 20-30 minutes continuously, Benefits of regular exercise, Discussed home walking program and Monitored Outpatient Cardiac Rehab Response Code Sedentary Response Code:: Patient communicates acknowledgment and Needs reinforcement
== END | disposition home or self-care (01) ==
PROVIDERS: PCP Family Medicine; Referring Provider Internal Medicine Cardiovascular Disease; Visit Provider Internal Medicine Cardiovascular Disease
DX: I25.110 Atherosclerotic heart disease of native coronary artery with unstable angina pectoris (principal); E11.9 Type 2 diabetes mellitus without complications; Z95.5 Presence of coronary angioplasty implant and graft; I10 Essential (primary) hypertension; E78.5 Hyperlipidemia, unspecified; Z79.82 Long term (current) use of aspirin; Z79.02 Long term (current) use of antithrombotics/antiplatelets; Z79.899 Other long term (current) drug therapy; Z79.84 Long term (current) use of oral hypoglycemic drugs; I65.23 Occlusion and stenosis of bilateral carotid arteries; I95.9 Hypotension, unspecified; R55 Syncope and collapse; R07.9 Chest pain, unspecified
CPT/HCPCS: 92928; 93005; 93458; 99152; 99153; C1725; Q9967; C1769; C1874; C1887; C1894; C9600

== ENCOUNTER 2024-08-27 09:39 | Emergency (ER) | payer MEDICARE, SELFPAY ==
[2024-04-19 08:46] VITALS: BMI 26.5
[2024-08-27] VITALS (8 sets, daily range): BP systolic 112–140; BP diastolic 61–78; PULSE 78–98; RESP 16–169; TEMP 36.4–37.2; O2SAT 94–100; BMI 23.9
--- NOTE | 2024-08-27 10:10 | RAD_ITS ---
INDICATION: chest pain EXAMINATION/TECHNIQUE: X-RAY - XR Chest 1 View COMPARISON: Prior study dated: 07/28/2024 FINDINGS: LINES/DEVICES: None. LUNGS: Vague opacity/nodular density in the right lower lung could be due to pulmonary nodules. Lungs are otherwise clear. No evidence of pleural effusions. MEDIASTINUM AND CARDIOVASCULAR STRUCTURES: Cardiac silhouette not enlarged. Central airways and mediastinal contour are unremarkable. BONES AND SOFT TISSUES: Stable osseous structures. RAD/Chest 1 View (Portable) IMPRESSION: Vague right lower lung density could be due to early infiltrate. Follow-up examination or correlation with CT scan is recommended. Electronically Signed: Moises Frausto MD at 10:35 EST ,
--- NOTE | 2024-08-27 10:10 | EKG12_ITS ---
Test Reason : CP/SOB Blood Pressure : */* mmHG Vent. Rate : 92 BPM Atrial Rate : 92 BPM P-R Int : 138 ms QRS Dur : 78 ms QT Int : 342 ms P-R-T Axes : 52 46 16 degrees QTcB Int : 422 ms Normal sinus rhythm Nonspecific ST abnormality Abnormal ECG Confirmed by SHAHID POTTER, HUSSAIN ([id number]), make up editor KAMI QUINTANA ([id number]) on 08/30/2024 6:42:13 AM Referred By: CHELSEA Confirmed By: HUSSAIN KEY MD
[2024-08-27 10:31] LABS: Absolute Lymphocyte Count 1.06 X10^3/uL (0.83-4.51); Absolute Neutrophil Count 13.7 X10^3/uL (2.0-7.7); Basophil# 0.08 X10^3/uL; Basophil% 0.5 % (0-1); Eosinophil# 0.22 X10^3/uL; Eosinophils% 1.3 % (0-5); Hematocrit 44.8 % (40-54); Hemoglobin 14.7 g/dL (13.0-16.5); Lymphocyte # 1.06 X10^3/ul (0.83-4.51); Lymphocyte % 6.4 % (19-41); Mean Corp Hgb Conc 32.8 g/dL (32-36); Mean Corpuscular Hgb 28.7 pg (27.0-32.0); Mean Corpuscular Volume 87.3 fL (80-94); Mean Platelet Vol. 9.8 fl (6.2-12.0); Monocyte# 1.31 X10^3/uL; NRBC Flagged by Analyzer 0 % (0-5); Neutrophil # 13.68 X10^3/uL (2.7-7.7); Neutrophil % 83.3 % (47-70); Platelet Count 277 K/mm3 (150-450); RBC Distribution Width CV 12.9 % (11.6-14.6); Red Blood Count 5.13 M/mm3 (4.6-6.2); White Blood Count 16.4 K/mm3 (4.4-11.0)
--- NOTE | 2024-08-27 10:42 | EX.ED.DYSGE1 ---
HPI History of Present Illness Chief Complaint: Chest Pain Informant: patient and family Narrative Narrative: 69-year-old male presenting to the emergency room with weakness diarrhea and chest pressure. Patient states that a couple weeks ago he had a stent (my 12) placed here at the hospital. He states that he never regained his energy. States of the past couple days he has had worsening generalized weakness and a chest pressure that comes on midsternally when he exerts himself. He states that about an hour prior to arrival he had worsening weakness as well as diarrhea that has been ongoing since 7:00 this morning. He states that he almost vomited once. No reported fevers. He states he is on a new medication for his blood sugar in the past month that has made his blood sugar lower now in the 120s. He is unsure of the name. He states he is also on a new blood thinner but through asking him questions he has been on this for about a year. He believes it is Brilinta. [facility] Medical History Essential (primary) hypertension Hyperlipidemia Stroke/cerebrovascular accident Hypertension History of CAD (coronary artery disease) Hx of diabetes insipidus Tremor of both hands COVID-19 (06/2021) Bilateral carotid artery stenosis Syncope (10/2021) Atherosclerotic heart disease of [place] coronary artery without angina pectoris (10/10/23) Type 2 diabetes mellitus Sciatica DDD (degenerative disc disease) Elevated LFTs BPH (benign prostatic hyperplasia) Home Medications ?Medication ?Instructions ?Recorded ?Last Taken ?Type aspirin 81 mg tablet,delayed 81 mg PO DAILY@0800 [facility] 09/13/13 02/11/22 History release omega 7-gjd-yye-fish oil 1,000 mg 1,000 mg PO QDAY supplement 01/06/18 12/29/21 History (120 mg-180 mg) capsule (Fish Oil) ferrous sulfate 325 mg (65 mg 325 mg PO BID supplement 06/28/22 Unknown History iron) tablet ranolazine 1,000 mg 1,000 mg PO BID heart #60 tabs 10/30/23 Unknown Rx tablet,extended release,12 hr ticagrelor 90 mg tablet (Brilinta) 90 mg PO BID anti platelet #60 tabs 10/30/23 Unknown Rx zinc acetate 50 mg (zinc) capsule 50 mg PO DAILY supplement 10/30/23 Unknown History (Galzin) nitroglycerin 0.4 mg sublingual 0.4 mg sublingual Q5M PRN chest 12/04/23 Unknown Rx tablet pain #30 tabs amlodipine 10 mg tablet 10 mg PO DAILY #90 tabs 12/18/23 Unknown Rx omeprazole 40 mg capsule,delayed 40 mg PO DAILY #90 caps 04/19/24 Unknown Rx release atorvastatin 80 mg tablet 80 mg PO DAILY for cholesterol #90 07/26/24 Unknown Rx TABLETS empagliflozin 10 mg tablet 10 mg PO QAM 07/28/24 Unknown History (Jardiance) isosorbide mononitrate 30 mg 30 mg PO QAM #30 tabs 07/28/24 Unknown Rx tablet,extended release 24 hr Allergy/AdvReac Type Severity Reaction Status Date / Time fludrocortisone (From Allergy Severe ANGIOEDEMA Verified 07/28/24 08:11 Florinef) losartan AdvReac Severe Angioedema Verified 07/28/24 08:11 iodine AdvReac unknown Verified 07/28/24 08:11 perfume AdvReac Other Verified 07/28/24 08:11 Family History Sister CAD (coronary artery disease) CVA (cerebral vascular accident) Diabetes Myocardial infarction Hx of CABG Mother Cancer Lung CA Surgical History History of loop recorder (12/13/21) History of cataract surgery History of left heart catheterization (10/10/23) History of hand surgery History of coronary artery stent placement (08/16/24) Hx of appendectomy Social History Smoking Status: Never smoker alcohol intake: never substance use type: does not use caffeine: No what type of physical activity do you participate in: none seatbelt use: always do you feel safe at home: Yes ROS ROS ED ROS Narrative Generalized weakness Constitutional Constitutional ED: Denies chills or weight loss Eyes Eyes: Denies change in vision or diplopia ENT ENT ED: Denies ear pain, rhinorrhea or sore throat Cardiovascular Cardiovascular: Reports chest pain; Denies orthopnea, palpitations or racing heartbeat Respiratory/Chest Respiratory/Chest: Reports dyspnea; Denies cough or orthopnea Gastrointestinal Gastrointestinal: Reports diarrhea and nausea; Denies abdominal pain or vomiting Genitourinary Genitourinary ED: Denies dysuria, hematuria or urinary frequency Musculoskeletal Musculoskeletal: Denies arthralgias or myalgias Integumentary Denies abscess or rash Neurologic Neurologic: Denies headache(s) or weakness Psychiatric Psychiatric: Denies anxiety, depression, suicidal ideation or suicidal thoughts Endocrine Endocrinology: Denies polydipsia, polyphagia or polyuria Allergic/Immunologic Allergic/Immunologic ED: Denies mouth swelling, tongue swelling or urticaria EXAM Physical Exam Const Vital Signs: 08/27/24 09:40 08/27/24 09:44 08/27/24 09:44 Temperature 97.5 F L 97.8 F Temperature Source Temporal Oral Pulse Rate 98 83 Respiratory Rate 18 18 Respiratory Effort Short of Breath Blood Pressure 133/78 H 112/78 Blood Pressure Mean 96 89 Pulse Ox 99 100 Oxygen Delivery Method Room Air Room Air 08/27/24 10:12 08/27/24 10:39 08/27/24 10:44 Temperature 98.9 F 98.7 F Temperature Source Oral Oral Pulse Rate 78 78 Respiratory Rate 16 16 Respiratory Effort Blood Pressure 116/78 116/78 Blood Pressure Mean 90 90 Pulse Ox 98 98 Oxygen Delivery Method Room Air Room Air Room Air 08/27/24 11:00 08/27/24 12:00 08/27/24 13:00 Temperature 98.8 F 98.1 F 98.2 F Temperature Source Oral Oral Temporal Pulse Rate 78 89 81 Respiratory Rate 16 16 17 Respiratory Effort Blood Pressure 116/64 120/61 140/75 H Blood Pressure Mean 81 80 96 Pulse Ox 99 98 94 Oxygen Delivery Method Room Air Room Air Room Air 08/27/24 14:00 Temperature 98.9 F Temperature Source Oral Pulse Rate 89 Respiratory Rate 169 H Respiratory Effort Blood Pressure 124/66 H Blood Pressure Mean 85 Pulse Ox 98 Oxygen Delivery Method Room Air Positive well nourished and well developed General Appearance ED: well developed and NAD HEENT Reports normocephalic, head/scalp atraumatic and moist mucous membranes Eyes PERRL and EOMs intact bilaterally Neck no lymphadenopathy, supple and no JVD Resp normal respiratory effort and clear to auscultation bilaterally Cardio regular rate, regular rhythm and no murmurs GI normal to inspection, nondistended, normoactive bowel sounds and non-tender Palpation: soft Back/Spine no CVA tenderness and normal ROM Extremity normal to inspection General Extremety ED: Negative for edema General Extremity: Negative for edema Neuro oriented x3 and CN's II-XII intact bilaterally Sensorium / Orientation: alert Motor Exam: strength 5/5 throughout Psych mental status grossly normal Mood & Affect: Negative for depressed or tearful Skin no rashes or lesions noted and no wounds MDM MDM MDM Narrative Medical decision making narrative: Differential diagnosis includes but not limited to infectious diarrhea. Dehydration acute kidney injury electrolyte abnormality acute coronary syndrome aortic dissection pneumonia pleural effusion Patient's white count is elevated 16.4 hemoglobin 14.7 platelet count of 277. 2 sets of cardiac enzymes are normal at 4 urinalysis is negative. Creatinine 1.34 my independent interpretation the chest x-ray is no acute process. CT of the abdomen pelvis was obtained which demonstrates changes consistent with an enteritis or gastroenteritis. No distinct colitis. Patient's had no events on the monitor. He has had multiple trips to the bathroom and his stool is positive for norovirus. He continues to feel weak which is how he has been feeling for more than a month. I do not see a clear etiology for the generalized weakness. Using shared decision making we discussed admission versus home treatment and hydration follow-up. He would like to go home and states that he does not a difficult thing for him to hydrate. History & Record Review Discussion w/independent historian: Patient and Family Lab Data Attestation: I reviewed the patient's lab results. Labs: Laboratory Results - last 24 hr 08/27/24 08/27/24 09:55 12:40 WBC 16.4 H RBC 5.13 Hgb 14.7 Hct 44.8 MCV 87.3 MCH 28.7 MCHC 32.8 RDW Std Deviation 41.0 RDW Coeff of Megan 12.9 Plt Count 277 MPV 9.8 Immature Gran % (Auto) 0.500 Neut % (Auto) 83.3 H Lymph % (Auto) 6.4 L [place] % (Auto) 8.0 Eos % (Auto) 1.3 Baso % (Auto) 0.5 Absolute Neuts (auto) 13.7 H Absolute Lymphs (auto) 1.06 Nucleated RBC % 0 Sodium 133 L Potassium 4.2 Chloride 101 Carbon Dioxide 21.0 Anion Gap 11 BUN 30 H Creatinine 1.34 H Estim Creat Clear Calc 52.21 Est GFR (MDRD) Af Amer 68 Est GFR (MDRD) Non-Af 56 L BUN/Creatinine Ratio 22.4 H Glucose 234 H Calcium 10.0 Total Bilirubin 0.60 Direct Bilirubin 0.15 AST 25 ALT 36 Alkaline Phosphatase 155 H Troponin I High Sens 4 4 Total Protein 9.1 H Albumin 5.1 H Globulin 4.0 Urine Color Yellow Urine Clarity Clear Urine pH 6.0 Ur Specific [place] 1.015 Urine Protein 30 H Urine Glucose (UA) 1000 H Urine Ketones 5 H Urine Occult Blood Negative Urine Nitrite Negative Urine Bilirubin Negative Urine Urobilinogen Normal Ur Leukocyte Esterase Negative Urine RBC 0 SEEN Urine WBC 0 SEEN Ur Squamous Epith Cells 0 SEEN Urine Bacteria 0 SEEN Urine Mucus 0 SEEN Radiography Diagnostic Testing: Clinical Impression(s) from Imaging Studies Chest X-Ray 08/27/24 10:10 IMPRESSION: Vague right lower lung density could be due to early infiltrate. Follow-up examination or correlation with CT scan is recommended. Electronically Signed: Moises Frausto MD at 10:35 EST , Abdomen/Pelvis CT 08/27/24 11:22 IMPRESSION: Colonic diverticulosis. Small bowel distention with ileus or enteritis. Electronically Signed: Pop Nuno MD at 12:00 EST , EKG Initial EKG: Attestation: I personally reviewed and interpreted this EKG as follows: Comments: Normal sinus rhythm ventricular rate of 92 bpm Discharge Plan Triage Chief Complaint: Chest Pain Other Complaint: Diarrhea ED Provider: Juan Luis Rubio Dx/Rx/DC Orders Clinical Impression: Diarrhea, Chest pain, Weakness, Acute dehydration Instructions: ED Vomit Diarrhea Nonspec Adult Prescriptions: No Action omega 0-zbn-kue-fish oil [Fish Oil] 1,000 mg (120 mg-180 mg) capsule 1,000 mg PO QDAY Patient Comments: 1200 mg PO QDAY Galzin 50 mg (zinc) capsule 50 mg PO DAILY ranolazine 1,000 mg tablet extended release 12 hr 1,000 mg PO BID Qty: 60 11RF Brilinta 90 mg tablet 90 mg PO BID Qty: 60 11RF omeprazole 40 mg capsule,delayed release(DR/EC) 40 mg PO DAILY Qty: 90 3RF Jardiance 10 mg tablet 10 mg PO QAM isosorbide mononitrate 30 mg tablet extended release 24 hr 30 mg PO QAM Qty: 30 11RF aspirin 81 MG tablet 81 mg PO DAILY@0800 nitroglycerin 0.4 mg tablet, sublingual 0.4 mg sublingual Q5M PRN (Reason: chest pain) Qty: 30 0RF Rx Instructions: do not exceed 3 doses per episode ferrous sulfate 325 mg (65 mg iron) tablet 325 mg PO BID amlodipine 10 mg tablet 10 mg PO DAILY Qty: 90 3RF atorvastatin 80 mg tablet 80 mg PO DAILY Qty: 90 3RF Primary Care Provider: Nadir Abdalla Referrals: Nadir Abdalla MD [Primary Care Provider] - 3-5 Days Activity Restrictions/Additional Instructions: The hospital will be performing more testing on your stool and is highly likely that this is a viral diarrhea that is contagious. You need to make sure you are orally hydrating. If you are worsening or have concerns please return to emergency. I would asked that he follow-up with your primary care doctor early next week. Print Language: [place] Disposition Disposition: Home, Self Care Discharge Date/Time: 08/27/24 14:08
[2024-08-27 10:48] LABS: Anion Gap 11 (5-15); BUN 30 mg/dL (7-18); BUN/Creat Ratio 22.4 RATIO (10-20); Chloride 101 mmol/L (98-107); Creatinine, Serum 1.34 mg/dL (0.70-1.30); EST Glomerular Filtration Rate 56 mL/min (>60); Est Glom Filt Rate - Afr Amer 68 mL/min (>60); Estimated Creatinine Clearance 52.21 ml/min; Glucose 234 mg/dL (74-106); Potassium 4.2 mmol/L (3.5-5.1); Sodium Level 133 mmol/L (136-145); Troponin-I HS (w/2H Reflex) 4 pg/mL (3.0-78.0)
[2024-08-27] MEDS: Ondansetron 4 MG/2 ML Vial IV (10:55)
[2024-08-27] MEDS: 0.9% Normal Saline (1000mL) 1,000 ML 999 ML IV (10:55)
[2024-08-27 11:15] LABS: AST(SGOT) 25 U/L (15-37); Alanine Aminotransfer ALT/SGPT 36 U/L (16-61); Albumin, Serum 5.1 g/dL (3.2-5.0); Alkaline Phosphatase 155 U/L (45-117); Bilirubin, Direct 0.15 mg/dL (0.00-0.30); Protein, Total 9.1 g/dL (6.4-8.2)
--- NOTE | 2024-08-27 11:22 | CT_ITS ---
STUDY: CT ABDOMEN AND PELVIS WITHOUT CONTRAST REASON FOR EXAM: Male, 69 years old. Colitis RADIATION DOSAGE (If Supplied By Facility): CTDIvol = ( 9.80 ) mGy, DLP = ( 477.23 ) mGycm TECHNIQUE: Transaxial images were obtained from the dome of the diaphragm to the symphysis pubis without oral contrast, and without intravenous contrast. Sagittal and coronal images were reconstructed. Individualized dose optimization techniques were used for this CT. COMPARISON: None. FINDINGS: The visualized lung bases are unremarkable. The visualized portions of the heart are within normal limits. Normal liver. Normal gallbladder and extrahepatic biliary system. Normal spleen. Normal pancreas. Normal bilateral adrenal glands. Normal right kidney. Normal left kidney. Normal visualized stomach. There is mild fluid distention of small intestine. There are multiple colonic diverticula consistent with diverticulosis. There is non-visualization of the appendix. There is diffuse atherosclerotic calcification of the abdominal aorta, without a demonstrated aneurysm. Normal inferior vena cava. Normal retroperitoneum. Normal urinary bladder. There is no free fluid in the abdomen or pelvis. Normal abdominal wall. There is scoliosis and degenerative change of the spine. CT/Abdomen/Pelvis without Cont IMPRESSION: Colonic diverticulosis. Small bowel distention with ileus or enteritis. Electronically Signed: Pop Nuno MD at 12:00 EST ,
[2024-08-27 12:24] LABS: Reflex Troponin-HS? (from REC) Y
[2024-08-27 12:45] LABS: Bacteria 0 SEEN /hpf (None Seen); Mucous, Urine 0 SEEN /hpf (<or=2+); Red Blood Cells-Urine 0 SEEN /hpf (0-5); Squamous Epithelial Cells - UA 0 SEEN /hpf (0-5); White Blood Cells 0 SEEN /hpf (0-5)
[2024-08-27 12:58] LABS: Color, Urine Yellow (Yellow); Glucose, Dipstick 1000 mg/dl (Normal); Ketone-Dipstick 5 mg/dl (Negative); Leukocyte Esterase-Dipstick Negative /ul (Negative); Nitrite-Dipstick Negative (Negative); Occult Blood-Urine Negative /ul (Negative); Protein-Dipstick 30 mg/dl (Negative); Specific Gravity, Urine 1.015 (1.002-1.030); Urine Bilirubin Dipstick Negative (Negative); Urine Clarity Clear (Clear); Urine Urobilinogen Normal (Normal)
[2024-08-27 13:09] LABS: Troponin-I HS 4 pg/mL (3.0-78.0)
--- NOTE | 2024-08-27 14:42 | ED.RN ---
Called patient and let him know that he was positive for norovirus. Pt was advised to clean bathroom with bleach products and was towels with bleach as well. He was advised that norovirus is contagious and anyone that has been around him has been exposed.
== END 2024-08-27 14:08 | disposition home or self-care (01) ==
PROVIDERS: Emergency Provider Emergency Medicine; PCP Family Medicine; Visit Provider Emergency Medicine
DX: R19.7 Diarrhea, unspecified (principal); E11.9 Type 2 diabetes mellitus without complications; R07.89 Other chest pain; E78.5 Hyperlipidemia, unspecified; R06.00 Dyspnea, unspecified; E86.0 Dehydration; I25.10 Atherosclerotic heart disease of native coronary artery without angina pectoris; I10 Essential (primary) hypertension; N40.0 Benign prostatic hyperplasia without lower urinary tract symptoms; R53.1 Weakness; Z95.5 Presence of coronary angioplasty implant and graft; Z79.82 Long term (current) use of aspirin; Z79.02 Long term (current) use of antithrombotics/antiplatelets; Z79.84 Long term (current) use of oral hypoglycemic drugs; Z79.899 Other long term (current) drug therapy
CPT/HCPCS: 71045; 74176; 80048; 80076; 81001; 83630; 84484; 85025; 87177; 87209; 87493; 87506; 93005; 96361; 96374; 99285; A4216; J2405

== ENCOUNTER → 2024-09-20 | Outpatient (CLI) | payer MEDICARE, SELFPAY ==
[2024-04-19 08:46] VITALS: BMI 26.5
--- NOTE | 2024-09-20 15:35 | RAD_ITS ---
EXAM: XR CERVICAL SPINE, 4 OR 5 VIEWS CLINICAL INDICATION: CERVICAL SPONDYLOSIS TECHNIQUE: Frontal, lateral and bilateral oblique views of the cervical spine. COMPARISON: CT cervical spine, 01/16/2023 FINDINGS: VERTEBRAE: Multilevel facet, uncovertebral joint, and endplate osteophytosis. Preserved vertebral body height. No acute fracture. No spondylolisthesis. Preservation of the normal cervical lordosis. DISC SPACES: Multilevel intervertebral disc height loss. At least mild osseous encroachment of multiple neural foramina bilaterally. SOFT TISSUES: No significant abnormality. No prevertebral soft tissue widening. LUNG APICES: Clear. RAD/Cerv Spine 2 or 3 Views IMPRESSION: Multilevel degenerative changes correlated with the prior examination. No acute findings. Electronically Signed: Brain James DO at 21:56 EST ,
[2024-09-20 20:17] LABS: Amphetamine Urine NEGATIVE (<1000 ng/mL); Barbiturate Urine VISTA NEGATIVE (< 200 ng/mL); Benzodiazepine Urine VISTA NEGATIVE (< 200 ng/mL); Cocaine Urine VISTA NEGATIVE (< 300 ng/mL); Ecstacy Urine VISTA NEGATIVE (< 500 ng/mL); Methadone Urine VISTA NEGATIVE (< 300 ng/mL); PCP Urine VISTA NEGATIVE (< 25 ng/mL); THC Urine VISTA NEGATIVE (< 50 ng/mL); Vista UDS pH Range 7
== END | disposition home or self-care (01) ==
PROVIDERS: PCP Family Medicine; Referring Provider Anesthesiology; Visit Provider Anesthesiology
DX: M47.22 Other spondylosis with radiculopathy, cervical region (principal)
CPT/HCPCS: 72040; 80307

== ENCOUNTER → 2024-10-23 | Outpatient (CLI) | payer MEDICARE, SELFPAY ==
[2024-04-19 08:46] VITALS: BMI 26.5
--- NOTE | 2024-10-23 07:34 | MRI_ITS ---
PROCEDURE: MRI cervical spine without IV contrast REASON FOR EXAM: Pain, left-sided radiculopathy TECHNIQUE: Multisequence multiplanar MR images of the cervical spine were obtained without the administration of intravenous contrast. COMPARISON: 01/16/2023 FINDINGS: Alignment is intact. Vertebral body heights are preserved. Negative for fracture or marrow replacement. Mild/moderate multilevel degenerative disc disease. Spinal cord is of normal caliber, contour and signal intensity. No paraspinal mass. C2-3: No focal disc abnormality or spinal stenosis. Minimal uncovertebral and moderate bilateral facet arthrosis. Mild bilateral foraminal narrowing. C3-4: Posterior disc osteophyte complex eccentric to the right. Bilateral uncovertebral and facet arthrosis. No significant spinal stenosis. Moderate right and mild left foraminal narrowing. C4-5: Posterior disc osteophyte complex eccentric to the left. Bilateral uncovertebral and facet arthrosis, greater on the left. Mild spinal stenosis. Moderate left foraminal narrowing. C5-6: Posterior disc osteophyte complex. Mild bilateral uncovertebral arthrosis. No significant spinal stenosis or foraminal narrowing. C6-7: Minimal posterior disc osteophyte complex. Mild bilateral uncovertebral arthrosis. No significant spinal stenosis or foraminal narrowing. C7-T1: No focal disc abnormality, spinal stenosis or foraminal narrowing. MRI/Spine Cervical (Routine) IMPRESSION: 1. Acquired mild spinal stenosis at C4-5. 2. Acquired moderate right foraminal narrowing at C3-4 and left foraminal narro wing at C4-5. Reading Location: [facility]
== END | disposition home or self-care (01) ==
LOC: MRI 07:20
PROVIDERS: PCP Family Medicine; Referring Provider Anesthesiology; Visit Provider Anesthesiology
DX: M54.12 Radiculopathy, cervical region (principal)
CPT/HCPCS: 72141

== ENCOUNTER → 2024-11-09 | Outpatient (CLI) | payer MEDICARE, SELFPAY ==
[2024-04-19 08:46] VITALS: BMI 26.5
== END | disposition home or self-care (01) ==
PROVIDERS: PCP Family Medicine; Visit Provider Nurse Practitioner Adult Health
DX: G47.52 REM sleep behavior disorder (principal); R06.83 Snoring; G47.8 Other sleep disorders; F51.04 Psychophysiologic insomnia
CPT/HCPCS: 95810

== ENCOUNTER → 2024-12-08 | Outpatient (CLI) | payer MEDICARE, SELFPAY ==
[2024-04-19 08:46] VITALS: BMI 26.5
[2024-12-08 14:59] LABS: AST(SGOT) 23 U/L (<=37); Alanine Aminotransfer ALT/SGPT 27 U/L (<=46); Albumin, Serum 4.7 g/dL (3.4-4.8); Alkaline Phosphatase 133 U/L (40-129); Bilirubin, Direct 0.15 mg/dL (0.00-0.30); Cholesterol 111 mg/dL (<=200); Globulin 2.9 g/dL (2.2-4.2); High Density Lipoprotein 43 mg/dL; Low Density Lipoprotein Calc. 40 mg/dL; Protein, Total 7.5 g/dL (5.9-8.4); Total Bilirubin 0.34 mg/dL (0.00-1.30); Triglycerides 142 mg/dL; Very Low Density Lipoprotein 28 mg/dL (5-40); cholesterol:hdl ratio screen 2.58
== END | disposition home or self-care (01) ==
LOC: LAB 09:02
PROVIDERS: PCP Family Medicine; Referring Provider Physician Assistant Medical; Visit Provider Physician Assistant Medical
DX: E78.5 Hyperlipidemia, unspecified (principal)
CPT/HCPCS: 36415; 80061; 80076

== ENCOUNTER → 2024-12-23 | Outpatient (CLI) | payer MEDICARE, SELFPAY ==
[2024-04-19 08:46] VITALS: BMI 26.5
--- NOTE | 2024-12-23 07:31 | AAVD_ITS ---
Reason For Study Reason For Study: PVD / Screening Aorta Measurements Aorta Doppler Measurements Proximal aorta measures2.48 x 2.52cm. in cross-sectional Peak systolic flow velocities within the proximal aorta axis. measure 79.6 cm/sec. Proximal aorta measures2.53cm. in longitudinal axis. Peak systolic flow velocities within the mid aorta measure Mid aorta measures1.89 x 1.74cm. in cross-sectional axis. 90.4 cm/sec. Mid aorta measures1.81cm. in longitudinal axis. Peak systolic flow velocities within the distal aorta Distal aorta measures1.61 x 1.55cm. in cross-sectional axis.measure 150.1 cm/sec. Distal aorta measures1.78cm. in longitudinal axis. Left Iliac Artery Left iliac artery measures 1.18 x 1.07 cm. in the cross-sectional axis. Left iliac artery measures 1.16 cm. in the longitudinal axis. Peak systolic velocity in the left iliac artery measures 90.4 cm/sec. Right Iliac Artery Right iliac artery measures 1.18 x 1.14 cm. in the cross-sectional axis. Right iliac artery measures 1.12 cm. in the longitudinal axis. Peak systolic velocity in the right iliac artery measures 116.3 cm/sec. VL/Abd Aortic/IVC Duplex scan Interpretation Summary Aorta patent, normal caliber. Bilateral iliac arteries patent, normal caliber. Ordering Physician: Yolanda Dean Referring Physician: Nadir Abdalla Performed By: Beltran Castaneda, RVT
--- NOTE | 2024-12-23 07:31 | ART_ITS ---
Reason For Study Reason For Study: Claudication Procedure A bilateral lower extremity continuous wave Doppler with analog waveform analysis,segmental pressures,and ankle brachial indexes without exercise. Left Segmental Pressures Left brachial= 138mmHg. Left posterior tibial artery = 182mmHg. Left dorsalis pedis artery = 189mmHg. Left digit = 128 mmHg. The left posterior tibial artery waveforms are triphasic. The left dorsalis pedis waveforms are triphasic. Right Segmental Pressures Right brachial= 130mmHg. Right posterior tibial artery = 168mmHg. Right dorsalis pedis artery = 181mmHg. Right digit = 127 mmHg. The right posterior tibial artery waveforms are triphasic. The right dorsalis pedis waveforms are triphasic. Indices The right ankle brachial index by the posterior tibial artery is 1.22. The right ankle brachial index by the dorsalis pedis is 1.31. The right digital-brachial index is 0.92. The left ankle brachial index by the posterior tibial artery is 1.32. The left ankle brachial index by the dorsalis pedis is 1.37. The left digital-brachial index is 0.93. VL/Lower Ext Art Exam w/o Exercis Interpretation Summary Right ELICIA 1.31, normal. TBI and Doppler/PVR waveforms of the right leg normal a t rest. Left ELICIA 1.37, normal. TBI and Doppler/PVR waveforms of the left leg normal at rest. Ordering Physician: Yolanda Dean Referring Physician: Nadir Abdalla Performed By: LUCIA LEE Rosa
--- NOTE | 2024-12-23 07:31 | CDU_ITS ---
Reason For Study Reason For Study: Dizziness Rt. Velocities/BP Lt. Velocities/BP Prox CCA 78.1/11.8 cm/sec. Prox CCA 92.4/17.5 cm/sec. Mid CCA 89.1/16.7 cm/sec. Mid CCA 94.2/21.2 cm/sec. Dist CCA 84.2/17.9 cm/sec. Dist CCA 85.1/19.4 cm/sec. Prox ICA 175.2/43.0 cm/sec. Prox ICA 167.4/43.0 cm/sec. Mid ICA 121.5/37.8 cm/sec. Mid ICA 111.0/30.2 cm/sec. Dist ICA 116.9/36.9 cm/sec. Dist ICA 97.9/17.5 cm/sec. Rt. ICA/CCA = 2.0. Lt. ICA/CCA = 1.8. Prox ECA 119.8/8.4 cm/sec. Prox ECA 123.5/10.2 cm/sec. Rt. Vert. 34.1/7.4 cm/sec. Lt. Vert. 52.5/14.7 cm/sec. Right Extracranial There is heterogeneous, irregular atherosclerotic plaque noted in the right common carotid artery. There is heterogeneous, irregular atherosclerotic plaque noted in the right internal carotid artery. There is heterogeneous, irregular atherosclerotic plaque noted in the right external carotid artery. Antegrade flow is noted in the right vertebral artery. Left Extracranial There is heterogeneous, irregular atherosclerotic plaque noted in the left common carotid artery. There is heterogeneous, irregular atherosclerotic plaque noted in the left internal carotid artery. There is heterogeneous, irregular atherosclerotic plaque noted in the left external carotid artery. Antegrade flow is noted in the left vertebral artery. Procedure Carotid Duplex 16619. This is a Carotid Duplex examination using B-mode, color flow and specral Doppler. The exam was diagnostic. Exam performed in department. VL/Carotid Duplex Ultrasound Interpretation Summary Moderate (50-69%) stenosis right extracranial internal carotid. Moderate (50-69%) stenosis left extracranial internal carotid. Patent and antegrade vertebrals bilaterally. Ordering Physician: Yolanda Dena Referring Physician: Nadir Abdalla Performed By: Beltran Castaneda RVT
== END | disposition home or self-care (01) ==
LOC: CVS 07:31
PROVIDERS: PCP Family Medicine; Referring Provider Physician Assistant Medical; Visit Provider Physician Assistant Medical
DX: I73.9 Peripheral vascular disease, unspecified (principal); R42 Dizziness and giddiness; I10 Essential (primary) hypertension
CPT/HCPCS: 93880; 93923; 93978

== ENCOUNTER 2025-03-05 11:10 | Emergency (ER) | payer MEDICARE, SELFPAY ==
[2024-04-19 08:46] VITALS: BMI 26.5
[2025-03-05] VITALS (7 sets, daily range): BP systolic 123–153; BP diastolic 61–79; PULSE 67–81; RESP 15–20; TEMP 36.6–36.7; O2SAT 96–100; BMI 24.5
[2025-03-05] MEDS: Nitroglycerin SL (ED/IMG/CATH) 0.4 MG TABLET SL (12:27)
[2025-03-05 12:28] LABS: Hematocrit 39.2 % (40-54); Hemoglobin 13.5 g/dL (13.0-16.5); Immature Granulocytes Count 0.030 X10^3/uL (0.0-0.0); Mean Corp Hgb Conc 34.4 g/dL (32-36); Mean Corpuscular Volume 88.3 fL (80-94); Mean Platelet Vol. 9.9 fl (6.2-12.0); NRBC Flagged by Analyzer 0 % (0-5); Platelet Count 200 K/mm3 (150-450); RBC Distribution Width CV 12.7 % (11.6-14.6); RBC Distribution Width SD 40.7 fl (35.1-43.9); Red Blood Count 4.44 M/mm3 (4.6-6.2); White Blood Count 6.5 K/mm3 (4.4-11.0)
[2025-03-05 13:27] LABS: Anion Gap 17 (5-15); BUN 21 mg/dL (4-19); BUN/Creat Ratio 22.5 RATIO (10-20); Calcium,Total 9.1 mg/dL (7.6-11.0); Carbon Dioxide 19.9 mmol/L (21.0-32.0); Chloride 100 mmol/L (98-108); Estimated Creatinine Clearance 75.76 ml/min (50-250); Glucose 208 mg/dL (70-99); Potassium 4.3 mmol/L (3.3-5.1); Troponin T High Sensitivity 11 ng/L (<=22)
[2025-03-05 14:00] LABS: Troponin T High Sens 2 HR 11 ng/L (<=22)
== END 2025-03-05 15:48 | disposition home or self-care (01) ==
PROVIDERS: Emergency Provider Emergency Medicine; PCP Family Medicine; Visit Provider Emergency Medicine
DX: R07.89 Other chest pain (principal); E11.9 Type 2 diabetes mellitus without complications; R55 Syncope and collapse; I10 Essential (primary) hypertension; E78.5 Hyperlipidemia, unspecified; I25.10 Atherosclerotic heart disease of native coronary artery without angina pectoris; R53.83 Other fatigue; Z79.82 Long term (current) use of aspirin; Z79.84 Long term (current) use of oral hypoglycemic drugs; Z79.02 Long term (current) use of antithrombotics/antiplatelets; Z79.899 Other long term (current) drug therapy; Z95.5 Presence of coronary angioplasty implant and graft
CPT/HCPCS: 71045; 80048; 84484; 85025; 93005; 99283; A4216

== ENCOUNTER → 2025-03-10 | Outpatient (CLI) | payer MEDICARE, SELFPAY ==
[2024-04-19 08:46] VITALS: BMI 26.5
--- OUTSIDE RECORDS SUMMARY | 2025-03-10 06:06 | XMS RPT_ITS | CCD ---
Author Organization [facility] Care Team Providers Care Binder Selector Name Role Phone Andrew Patel Unavailable Unavailable MD Liya, Jd Aranda Unavailable Nidhi RN, Beulah Ye Unavailable Unavailable Nidhi RN, Beulah Ye Unavailable Unavailable RIAN Bell, Griselda Gary Unavailable Unavailjuan Terrell RN, Beulah A Unavailable Unavailable RIAN Bell, Griselda Gary Unavailable UnavailSELENE Mathew R Unavailable Unavailable SELENE WILBURN Unavailable Unavailable Nidhi MODI, Beulah Ye Unavailable Unavailable RIAN Bell, Griselda Gary Unavailable UnavailAndrew Barone Unavailable Unavailable Nadir Grady MD Primary Care Provider [facility], Keti Unavailable [facility], Karen Unavailable Dr. Nadir Grady Primary Care Provider Dr. Sina Cabrales Attending Provider Dr. Jered Huff Referring Provider Dr. Nadir Grady Referring Provider Roof BRIQUETTE MAKER, BRIQUETTE MAKER-C Ramez Kim Attending Provider Jermaine DENISE, CAMELIA Gary Attending Provider Ann Grajeda Attending Provider Unavailable Dr. Jd Kern Attending Provider Roof BRIQUETTE MAKER, BRIQUETTE MAKER-C Ramez Kim Other Provider Dr. Jd Kern Referring Provider Dr. Jd Kern Other Provider Yolanda Dean (Pa) Unavailable 1([phone] Dr. Nadir Grady Primary Care Provider Dr. Nadir Grady Referring Provider [phone] Dr. Jd Kern Attending Provider [phone] Dr. Jd Kern Referring Provider [phone] Roof BRIQUETTE MAKER, BRIQUETTE MAKER-Terence Kim Attending Provider Nadir Grady MD Primary Care Provider [facility], Keti Unavailable [facility], Karen Unavailable Yolanda Dean (Pa) Unavailable 1(330 ) Dr. Nadir Grady Primary Care Provider Dr. Nadir Grady Referring Provider [phone] Ann Grajeda Attending Provider Unavailable Jermaine DENISE, CAMELIA Gary Attending Provider Dr. Otf Merrill Attending Provider [phone] Nadir Grady MD Primary Care Provider [facility], Keti Unavailable [facility], Karen Unavailable Yolanda Dean (Pa) Unavailable 1(330 ) Dr. Nadir Grady Primary Care Provider Dr. Nadir Grady Referring Provider [phone] Roof BRIQUETTE MAKER, CHAITANYA-Terence Kim Attending Provider Nadir Grady MD Primary Care Provider [facility], Keti Unavailable [facility], Karen Unavailable Yolanda Dean (Camelia) Unavailable 1(330 ) HANY JOHNSON Attending Unavaila THAI Williamson Referring Unavailable NADIR GRADY Primary Care Unavailable Yolanda Dean (Camelia) Unavailable 1(330 ) Dr. Nadir Grady Primary Care Provider Dr. Nadir Grady Referring Provider Dr. Jd Kern Attending Provider [phone] Liya, Dr. Miles Referring Provider [phone] Liya, Dr. Miles Other Provider Joe TAVARES, BRIQUETTE MAKERHolly Bower Attending Provider Jermaine DENISE, Yolanda Gary Unavailable [facility], [facility] Unavailable Dr. Nadir Grady Primary Care Provider Liya, Dr. Miles Attending Provider [phone] Nicko Rabago Emergency Provider Anton, Dr. Ewing Admit Provider Anton, Dr. Ewing Attending Provider Anton, Dr. Ewing Other Provider Aris, Dr. Hui Other Provider Dr. Foster Mayberry Attending Provider [phone] Dr. Foster Mayberry Other Provider Aris, Dr. Hui Attending Provider Aris, Dr. Hui Attending Provider [phone] Anton, Dr. Ewing Referring Provider Dr. Nadir Grady Primary Care Provider Dr. Nicko Rabago Emergency Provider Anton, Dr. Ewing Admit Provider Anton, Dr. Ewing Attending Provider Anton, Dr. Ewing Other Provider Aris, Dr. Hui Attending Provider Anton, Dr. Ewing Referring Provider Aris, Dr. Hui Other Provider Dr. Foster Mayberry Attending Provider Dr. Foster Mayberry Other Provider Dr. Jd Kern Attending Provider Dr. Nadir Grady Referring Provider CAMELIA Jones Attending Provider Cheli Tanner Attending Provider Unavailable Dr. Jered Huff Emergency Provider Nadir Grady MD Primary Care Provider Dr. Martina Cr Attending Provider Dr. Martina Cr Other Provider [facility], Keti Unavailable Yolanda Vargas PA-C Unavailable Nadir Grady MD Primary Care Provider [facility], Keti Unavailable Franny Catalan APRN.CNP Unavailable Martha Boston PA-C Unavailable Yolanda Dean PA-C Unavailable Dr. Nadir Grady MD Primary Care Provider Dr. Nadir Grady MD Referring Provider Yolanda Jones Attending Provider Yolanda Jones Referring Provider Dr. Jd Kern MD Attending Provider Dr. Jd Kern MD Referring Provider Dr. Juan Luis Rubio DO Attending Provider Dr. Juan Luis Rubio DO Emergency Provider Dr. Hany Paz MD Attending Provider Dr. Hany Paz MD Referring Provider Shruti JACOMECMolly Attending Provider Molly Houser Referring Provider Rm POTTER, Dr. Schmitz Primary Care Provider Rm POTTER, Dr. Schmitz Referring Provider Yolanda Jones Attending Provider Yolanda Jones Referring Provider Rm POTTER, Nadir Ye Primary Care Provider Rm POTTER, Dr. Schmitz Primary Care Provider Jignesh POTTER, Dr. Lawton Attending Provider Rm POTTER, Dr. Schmitz Primary Care Provider [phone] Rm POTTER, Dr. Schmitz Referring Provider Yolanda Jones Attending Provider Liya POTTER, Dr. Miles Attending Provider [phone] Alayna BRAILLE PROOFREADER.CERTIFIED ANESTHESIOLOGIST ASSISTANT, Franny Unavailable Darvin BOLTON, Martha Unavailable Pablo POTTER, Dr. Lord Emergency Provider MARTHA BOSTON Referring Unavailable RM, NADIR A Primary Care Unavailable RM, NADIR A Primary Care Unavailable RM, NADIR A Primary Care Unavailable RM, NADRI A Attending Unavailable RM, NADIR A Primary Care Unavailable BOSTON, MARTHA Referring Unavailable RM, NADIR A Primary Care Unavailable RM, NADIR A Referring Unavailable RM, NADIR A Primary Care Unavailable BRIDGET JOSEPH Referring Unavailable RM, NADIR A Primary Care Unavailable BOSTON, MARTHA Attending Unavailable RM, NADIR A Primary Care Unavailable BOSTON, MARTHA Referring Unavailable RM, NADIR A Primary Care Unavailable MOLLY HOUSER Attending Unavailable RM, NADIR A Referring Unavailable SHRUTI, MOLLY Attending Unavailable RM, NADIR A Primary Care Unavailable BOSTON, MARTHA Attending Unavailable RM, NADIR A Primary Care Unavailable BOSTON, MARTHA Referring Unavailable RM, NADIR A Primary Care Unavailable BOSTON, MARTHA Attending Unavailable RM, NADIR A Primary Care Unavailable BOSTON, MARTHA Referring Unavailable RM, NADIR A Primary Care Unavailable RM, NADIR A Primary Care Unavailable Rm, Nadir Primary Care Unavailable Rm, Nadir Referring Unavailable Yolanda Jones Attending Unavail able Ez Hurst Attending Unavailable Rm, Nadir Primary Care Unavailable Yolanda Jones Referring Unavail able LiyaJd mae Attending Unavailable Rm, Nadir Primary Care Unavailable Liya, Jd Referring Unavailable Liya, Jd Attending Unavailable Rm, Nadir Primary Care Unavailable Liya, Mariposa Referring Unavailable Liya, Mariposa Attending Unavailable Rm, Nadir Primary Care Unavailable Rm, Nadir Primary Care Unavailable Yolanda Jones Attending Unavail able Yolanda Jones Referring Unavail able Rm, Nadir Primary Care Unavailable Yolanda Jones Referring Unavail able Yolanda Jones Attending Unavail able Ez Hurst Referring Unavailable ArisEz Attending Unavailable Rm, Nadir Primary Care Unavailable Rm, Nadir Primary Care Unavailable Yolanda Jones Referring Unavail able Yolanda Jones Attending Unavail able Juan Luis Rubio Attending Unavailable Rm, Nadir Primary Care Unavailable Yolanda Jones Referring Unavail able Yolanda Jones Attending Unavail able Rm, Nadir Primary Care Unavailable Rm, Nadir Primary Care Unavailable Pop Shah Attending Unavailable Rm, Nadir Primary Care Unavailable Rm, Nadir Referring Unavailable Azul Cornell Attending Unavailable Rm, Nadir Primary Care Unavailable Rm, Nadir Referring Unavailable Yolanda Jones Attending Unavail able LiyaShiva maeril Attending Unavailable Rm, Nadir Primary Care Unavailable Rm, Nadir Referring Unavailable Rm, Nadir Primary Care Unavailable Rm, Nadir Referring Unavailable Yolanda Jones Attending Unavail able Jered Egan Attending Unavailable Rm, Nadir Primary Care Unavailable Yolanda Jones Referring Unavail able Molly Houser Referring Unavailable Shruti BRIQUETTE MAKERMolly Attending Unavailable Rm, Nadir Primary Care Unavailable Hany Paz Attending Unavailable Rm, Nadir Primary Care Unavailable Hany Paz Referring Unavailable Rm, Nadir Primary Care Unavailable Yolanda Jones Attending Unavail able Yolanda Jones Referring Unavail able Hany Paz Attending Unavailable Nadir Grady Primary Care Unavailable Hany Paz Referring Unavailable Nadir Grady Primary Care Unavailable Nadir Grady Referring Unavailable Yolanda Jones Attending Unavail able Allergies Allergy Classification Reported Allergen(s) Allergy Type Date of Onset Reaction(s) Facility Angiotensin 2 Receptor Blockers (ARB) (1 source) Losartan Drug Allergy 10-24-19 24 Angioedema [facility] Fludrocortisone (1 source) Fludrocortisone Drug Allergy 04-25-20 22 Angioedema [facility] Work Phone: (20 sources) PERFUMES; Translations: [PERFUMES] drug allergy 01-20-20 12 Other: See Comments [facility] Work Phone: (20 sources) Fludrocortisone; Translations: [FLUDROCORTISONE] [facility] Work Phone: (17 sources) perfume; Translations: [perfume] Propensity to adverse reactions 05-15-20 23 Other [facility] Comment on above: SINUS ISSUES (20 sources) Losartan; Translations: [LOSARTAN] Drug Allergy 10-24-19 24 Angioedema [facility] (7 sources) Iodine Drug Allergy 12-03-19 24 unknown [facility] Comment on above: liquid iodine used i n surgery (20 sources) ranolazine; Translations: [RANOLAZINE] Drug Allergy 09-06-19 Other: See Comments [facility] (1 source) Isosorbide Drug Allergy 03-05-20 25 Near syncope, low bp, headaches [facility] (1 source) Fludrocortisone Drug Allergy 03-05-20 25 [facility] (1 source) Iodine Drug Allergy 03-05-20 25 [facility] (1 source) Isosorbide Drug Allergy 03-05-20 [facility] (1 source) Losartan Drug Allergy 03-05-20 [facility] Medications Current Medications Medication Drug Class(es) Dates Sig (Normalized) Sig (Original) amantadine hydrochloride 100 mg oral tablet (20 sources) Influenza A M2 Protein Inhibitor Start: 05-23-2022 take 100 mg by mouth twice daily Amantadine Hcl Active 100 MG PO TWICE A DAY May 23, 2022 12:00am Start: 04-25-2022 End: 07-07-2022 take 1 capsule by mouth twice daily amantadine HCl (SYMMETREL) 100 mg capsule Take 1 capsule by mouth twice daily. 60 capsule 2 04/25/2022 07/07/2022 Discontinued (Discontinued by Patient) Comment on above: Take 1 capsule by mo [facility] twice daily. amitriptyline hydrochloride 50 mg oral tablet (20 [...] stop 47 tablet 0 05/01/2022 05/13/2022 Discontinued Start: 02-15-2021 End: 04-19-2022 take 1 tablet by mouth once daily at bedtime Amitriptyline HCl 150 mg tablet Take 1 tablet by mouth daily at bedtime. 30 tablet 11 02/15/2021 09/06/2021 Discontinued Start: 09-04-2020 End: 11-06-2020 take 1 tablet by mouth once daily at bedtime Amitriptyline HCl 150 mg tablet Take 1 tablet by mouth daily at bedtime. 90 tablet 09/04/2020 11/06/2020 Discontinued Start: 01-08-2017 [facility] AMITRIPTYLINE HCL 100 MG TABS 1 tablets by mouth at bedtime AMITRIPTYLINE HCL [id number] Jd Kern MD Start: 02-08-2015 End: 01-01-2021 take 3 tablets by mouth at bedtime Amitriptyline 50 MG tablet Discontinued 150 mg PO AT BEDTIME February 08, 2015 12:00am January 01, 2021 8:22am [facility] Start: 02-08-2015 End: 01-01-2021 take 150 mg by mouth at bedtime Amitriptyline Disconti nued 150 MG PO AT BEDTIME February 08, 2015 12:00am January 01, 2021 8:22am Comment on above: Take 1 tablet by isac th daily at bedtime. Take 150 mg by mouth daily at bedtime. Take 2.5 tabs QHS fo r a week, then 2 tabs QHS for a week, then 1.5 tabs for a week, then 1 tab QHS for a week then 1/2 a tab for a week, then 1/2 a tab every other day for 3 doses then stop amLODIPine 10 mg oral tablet (20 sources) Dihydropyridine Calcium Channel Seun Start: End: take 1 tablet by mouth once amLODIPine (NORVASC) 10 mg tablet Take 1 tablet by mouth once daily. Per [facility] 04/19/2024 Active Start: 11-12-2021 End: 11-12-2021 take 1 tablet by mouth once daily Amlodipine 2.5 mg tablet Discontinued 2.5 mg PO DAILY 30 November 12, 2021 9:13am November 12, 2021 9:51am Start: 11-12-2021 End: 11-12-2021 take 2.5 mg by mouth once daily Amlodipine 5 mg tablet Discontinued 2.5 mg PO DAILY 90 3 November 12, 2021 9:08am November 12, 2021 9:13am Start: 11-12-2021 End: 11-12-2021 take 2.5 mg by mouth once daily Amlodipine Discontinue d 2.5 MG PO DAILY 90 November 12, 2021 9:08am November 12, 2021 9:13am Start: 07-26-2020 End: 11-21-2020 take 1 tablet by mouth once daily Amlodipine 10 mg tablet Discontinued 10 mg PO DAILY 30 8 July 26, 2020 1:00am November 21, 2020 11:43am Start: 03-04-2020 End: 03-08-2020 take 1 tablet by mouth once daily Amlodipine 10 MG tablet Discontinued 10 mg PO DAILY March 04, 2020 11:35am March 08, 2020 12:14pm Start: 01-31-2020 End: 03-04-2020 take 5 mg by mouth once daily Amlodipine 10 mg tablet Discontinued 5 mg PO DAILY 90 3 January 31, 2020 4:04pm March 04, 2020 11:36am Start: 01-31-2020 End: 03-04-2020 take 5 mg by mouth once daily Amlodipine Discontinued 5 MG PO DAILY 90 January 31, 2020 4:04pm March 04, 2020 11:36am Start: 12-28-2019 End: 11-02-2020 amLODIPine (NORVASC) 10 mg t ablet Take 0.5 tablets by mouth twice daily. Per Cardio Dr. Kern 12/28/2019 11/02/2020 Discontinued Start: 12-28-2019 End: 01-31-2020 take 5 mg by mouth twice daily Amlodipine 10 mg tablet Discontinued 5 mg PO TWICE A DAY 90 3 December 28, 2019 9:29am January 31, 2020 4:04pm Start: 12-28-2019 End: 01-31-2020 take 5 mg by mouth twice daily Amlodipine Discontinued 5 MG PO TWICE A DAY December 28, 2019 9:29am January 31, 2020 4:04pm Start: 06-29-2019 End: 12-28-2019 take 1 tablet by mouth once daily Amlodipine 10 mg tablet Discontinued 10 mg PO DAILY 90 3 December 09, 2019 2:46pm December 28, 2019 9:29am Start: 02-26-2019 End: 04-19-2024 take 1 tablet by mouth once daily Amlodipine 5 mg tablet Discontinued 5 mg PO DAILY 90 3 March 21, 2021 5:00pm November 12, 2021 9:09am Comment on above: Take 1 tablet by isac th once daily. Managed by [facility] Take 1 tablet by isac th once daily. amoxicillin 875 mg / clavulanate 125 mg oral tablet (4 sources) Penicillin-class Antibacterial Start: End: 3 take 1 tablet by mouth twice daily amoxicillin-clavul anate potassium (AUGMENTIN) 875-125 mg per tablet Take 1 tablet by mouth two times a day for 7 days. 14 tablet 0 06/26/2023 07/03/2023 Active Start: 06-17-2023 End: 06-22-2023 take 1 tablet by mouth twice daily amoxicillin-clavulanic acid (AUGMENTIN) 875-125 mg per tablet Indications: Acute non-recurrent frontal sinusitis Take 1 tablet by mouth two times a day for 5 days. 10 tablet 0 06/17/2023 06/22/2023 Active Start: 06-29-2021 End: 07-04-2021 take 1 tablet by mouth twice daily amoxicillin-clavulanic acid (AUGMENTIN) 875-125 mg per tablet Take 1 tablet by mouth twice daily for 5 days. 10 tablet 0 06/29/2021 07/04/2021 Comment on above: Take 1 tablet by isac th twice daily for 5 days. Take 1 tablet by isac th two times a day for 5 days. Take 1 tablet by isac th two times a day for 7 days. aspirin 81 mg delayed release oral tablet (20 sources) Nonsteroidal Anti-inflammatory Drug Start: 11-07-2017 End: 02-15-2021 take 1 tablet by mouth once daily Aspirin 81 mg ORAL Tab Take 81 mg by mouth once daily. 11/07/2017 02/15/2021 Discontinued (Changing Therapy/Dosage Form) Start: 09-13-2013 End: 09-06-2021 take 1 tablet by mouth once daily aspirin, enteric coated (ECOTRIN LOW STRENGTH) 81 mg EC tablet Take 1 tablet by mouth once daily. 30 tablet 11 09/06/2021 Active Comment on above: Take 1 tablet by isac th once daily. atorvastatin 80 mg oral tablet (20 sources) HMG-CoA Reductase Inhibitor Start: take 1 tablet by mouth once daily atorvastatin (LIPITOR) 80 mg tablet Indications: Mixed hyperlipidemia Take 1 tablet by mouth once daily. Managed by cardiology, Dr. Kern 04/19/2024 Active Start: 10-30-2023 End: 04-19-2024 take 1 tablet by mouth once daily atorvastatin (LIPITOR) 40 mg tablet Indications: Mixed hyperlipidemia Take 1 tablet by mouth once daily. Managed by cardiologyDr. Kern 10/30/2023 04/19/2024 Discontinued (Adjust Sig - Block E-Cancel) Start: 10-30-2023 End: 07-26-2024 Atorvastatin 80 mg tablet Discontinued 40 mg PO DAILY October 30, 2023 10:15am July 26, 2024 9:11am cholesterol Start: 10-30-2023 take 40 mg by mouth once daily Atorvastatin Active 40 MG PO DAILY October 30, 2023 10:15am Start: 11-21-2020 End: 10-30-2023 take 1 tablet by mouth once daily Atorvastatin 80 mg tablet Discontinued 80 mg PO DAILY 90 3 July 02, 2023 9:16am October 30, 2023 10:18am cholesterol Start: 01-07-2019 End: 11-29-2020 take 1 tablet by mouth at bedtime Atorvastatin 20 mg tablet Discontinued 20 mg PO AT BEDTIME 90 30 4 July 03, 2020 10:43am November 21, 2020 11:43am cholesterol Start: 09-30-2017 End: 01-07-2019 take 1 tablet by mouth once daily Atorvastatin 40 mg tablet Discontinued 40 mg PO daily 90 4 September 25, 2018 1:28pm January 07, 2019 10:09am Start: 08-22-2017 End: 08-22-2017 take 1 tablet by mouth once daily Atorvastatin 40 mg tablet Discontinued 40 mg PO daily August 22, 2017 1:00am August 22, 2017 11:53am Start: 08-22-2017 End: 09-30-2017 Atorvastatin 10 mg tablet Discontinued PO 30 30 0 August 22, 2017 1:00am September 30, 2017 3:00pm Start: 01-07-2017 End: 09-30-2017 take 1 tablet by mouth at bedtime Atorvastatin 10 MG tablet Discontinued 10 mg PO AT BEDTIME January 17, 2017 12:00am August 22, 2017 11:04am Start: 01-07-2017 take 1 tablet by isac th once daily ATORVASTATIN CALCIUM 40 MG TABS One tablet by mouth daily ATORVASTATIN CALCIUM [id number] Jd Kern MD Comment on above: Take 1 tablet by isac th once daily. Managed by cardiology, Dr. Kern Blood Pressure Monitor kit (20 sources) Start: 06-12-2018 Blood Pressure Monitor kit 1 Each once daily. 1 Kit 06/12/2018 Active Start: 06-12-2018 Blood Pressure Monitor kit 1 Each once daily. 1 Kit 0 06/12/2018 Active Comment on above: 1 Each once daily. Blood-Glucose Meter monitoring kit (20 sources) Start: 06-26-2022 Blood-Glucose Meter monitoring kit Glucose Meter of Choice - Kit - Dx: Type 2 DM - Uncontrolled E11.65 1 Each 06/26/2022 Active Start: 06-26-2022 Blood-Glucose Meter monitoring kit Glucose Meter of Choice - Kit - Dx: Type 2 DM - Uncontrolled E11.65 1 Each 0 06/26/2022 Active Start: 10-14-2016 End: 06-26-2022 Blood-Glucose Meter monitori ng kit Indications: Uncontrolled type 2 diabetes mellitus without complication, without long-term current use of insulin Glucose Meter of Choice - Kit - Dx: Type 2 DM - Uncontrolled E11.65 1 Each 10/14/2016 06/26/2022 Discontinued Start: 10-14-2016 End: 06-26-2022 Blood-Glucose Meter monitori ng kit Indications: Uncontrolled type 2 diabetes mellitus without complication, without long-term current use of insulin Glucose Meter of Choice - Kit - Dx: Type 2 DM - Uncontrolled E11.65 1 Each 0 10/14/2016 06/26/2022 Discontinued Start: 10-14-2016 Blood-Glucose Meter monitoring kit Indications: Uncontrolled type 2 diabetes mellitus without complication, without long-term current use of insulin Glucose Meter of Choice - Kit - Dx: Type 2 DM - Uncontrolled E11.65 1 Each 0 10/14/2016 Active Comment on above: Glucose Meter of Cho ice - Kit - Dx: Type 2 DM - Uncontrolled E11.65 clopidogrel 75 mg oral tablet (20 sources) P2Y12 Platelet Inhibitor Start: take 1 tablet by mouth once daily Clopidogrel 75 mg tablet Active 75 mg PO daily February 22, 2025 12:00am Start: 09-13-2024 End: 11-15-2024 Clopidogrel (Plavix) 75 mg t ablet Discontinued 75 mg PO daily September 13, 2024 1:00am November 15, 2024 10:06am Take 4 pills day one, then it is once a day. Start: 12-03-2023 End: 12-04-2023 take 1 tablet by mouth once daily Clopidogrel 75 mg tablet Discontinued 75 mg PO DAILY December 03, 2023 12:00am December 04, 2023 3:15pm anti platelet Start: 01-01-2021 End: 10-14-2023 take 1 tablet by mouth once daily Clopidogrel (Plavix) 75 mg tablet Discontinued 75 mg PO DAILY July 02, 2023 9:16am October 11, 2023 12:28pm Start: 01-08-2017 End: 12-06-2020 take 1 tablet by mouth once daily Clopidogrel 75 mg tablet Discontinued 75 mg PO DAILY 90 4 July 03, 2020 10:43am November 21, 2020 11:42am Comment on above: Take 1 tablet by isac once daily. Managed by [facility] CPAP/BIPAP/OTHER (7 sources) Start: 12-16-2024 End: 05-02-2052 CPAP/BIPAP/OTHER Indications: Obstructive sleep apnea APAP 5-20 cmH2O 1 each 12/16/2024 05/02/2052 Active docosahexaenoic acid/epa (FISH OIL ORAL) (20 sources) docosahexaenoic acid/epa (FISH OIL ORAL) Take by mouth as directed. Active docosahexaenoic acid/epa (FISH OIL ORAL) Take by mouth as directed. 0 Active Comment on above: Take by mouth as dir ected. empagliflozin 10 mg oral tablet (20 sources) Sodium-Glucose Cotransporter 2 Inhibitor Start: 07-21-20 take 1 tablet by mouth once daily, then take 1 tablet by mouth once daily in the morning empagliflozin (JARDIANCE) 10 mg tablet Take 1 tablet by mouth once daily. Take 1 tablet once daily in the morning 30 tablet 5 01/10/2025 Active Start: 05-22-2021 End: 07-11-2021 take 1 tablet by mouth once daily at breakfast empagliflozin (JARDIANCE) 10 mg tablet Take 1 tablet by mouth daily with breakfast. 30 tablet 2 05/22/2021 07/11/2021 Discontinued Comment on above: Take 1 tablet by isac th daily with breakfast. enteric contrast (will be provided with radiology test) (1 source) Start: 07-02-2022 End: 07-03-2022 enteric contrast (will be provided with radiology test) For CT CHESTABD/PEL W IVCON Routine order Administer, As Directed One Time Only, via Oral, Rectal, both Oral and Rectal, Enteric Tube, Stoma or Indwelling Catheter, Enteric Contrast as designated per enteric contrast guidelines 1 Each 0 07/02/2022 07/03/2022 Active Comment on above: For CT CHESTABD/PEL W IVCON Routine order Administer, As Directed One Time Only, via Oral, Rectal, both Oral and Rectal, Enteric Tube, Stoma or Indwelling Catheter, Enteric Contrast as designated per enteric contrast guidelines ferrous sulfate 325 mg oral tablet (20 sources) Start: 06-17-2023 End: 01-27-2025 take 1 tablet by mouth twice daily at mealtime ferrous sulfate 325 mg (65 mg iron) tablet Indications: Anemia of chronic disease Take 1 tablet by mouth two times a day with meals. 180 tablet 1 01/27/2025 Active Start: 06-28-2022 take 1 tablet by isac th twice daily Ferrous Sulfate 325 mg (65 mg iron) tablet Active 325 mg PO TWICE A DAY June 28, 2022 12:00am supplement Start: 06-28-2022 take 325 mg by mouth once pantera y Ferrous Sulfate Active 325 MG PO DAILY June 28, 2022 12:00am Start: 06-27-2022 End: 04-01-2023 take 1 tablet by mouth twice daily at mealtime ferrous sulfate 325 mg (65 mg iron) tablet Take 1 tablet by mouth twice daily with meals. 60 tablet 1 08/30/2022 11/05/2022 Discontinued Start: 06-28-2020 End: 10-30-2020 take 1 tablet by mouth once daily at breakfast ferrous sulfate 325 mg (65 mg iron) tablet Indications: Iron deficiency anemia, unspecified iron deficiency anemia type Take 1 tablet by mouth daily with breakfast. 30 tablet 11 06/28/2020 10/30/2020 Discontinued (Discontinued by Patient) Comment on above: Take 1 tablet by isac th twice daily with meals. Take 1 tablet by isac th two times a day with meals. fluconazole 150 mg oral tablet (2 sources) Azole Antifungal Start: 023 End: 023 take 1 tablet by mouth once daily fluconazole (DIFLUCAN) 150 mg tablet Take 1 tablet by mouth once daily for 1 day. 1 tablet 0 04/01/2023 04/02/2023 Active Comment on above: Take 1 tablet by isac th once daily for 1 day. iv contrast (will be provided with radiology test) (4 sources) Start: 025 End: 025 inject 1 dose intravenously once iv contrast (will be provided with radiology test) MRI Brain Inject, intravenously, once for 1 dose.No IV access, insert saline lock prior to beginning of sedation, infusion, injection of imaging exam.Discontinue saline lock post exam. If Pt. has a central line or IVAD, may access for administration according to line specific nursing protocol.Once exam is complete flush line and de-access according to line specific nursing protocol in the MR contrast administration guidelines link 1 Each 10/07/2024 10/08/2024 Active Start: 07-02-2022 End: 07-03-2022 iv contrast (will be provide d with radiology test) CT Chest ABD/PEL-Inject, intravenously, once for 1 dose.No IV access, insert saline lock prior to the beginning of sedation, infusion, injection of imaging exam. Discontinue saline lock post exam. If Pt. has a central line or IVAD, may access for administration according to line specific nursing protocol. Once exam is complete flush line and de-access according to line specific nursing protocol in the CT contrast administration guidelines link. 1 Each 0 07/02/2022 07/03/2022 Active Comment on above: CT Chest ABD/PEL-Inj ect, intravenously, once for 1 dose.No IV access, insert saline lock prior to the beginning of sedation, infusion, injection of imaging exam. Discontinue saline lock post exam. If Pt. has a central line or IVAD, may access for administration according to line specific nursing protocol. Once exam is complete flush line and de-access according to line specific nursing protocol in the CT contrast administration guidelines link. 24 hr metFORMIN hydrochloride 500 mg extended release oral tablet (20 sources) Biguanide Start: 12-09-19 take 2 tablets by mouth twice daily Metformin 500 mg tablet Active 500 mg PO TWICE A DAY December 08, 2024 12:00am 2 tabs bid Start: 07-25-2020 End: 08-22-2025 take 2 tablets by mouth twice daily metFORMIN ER (GLUCOPHAGE XR) 500 mg 24 hr tablet Indications: Type 2 diabetes mellitus without complication, without long-term current use of insulin (HCC) Take 2 tablets by mouth two times a day. 360 tablet 1 02/23/2025 08/22/2025 Active Start: 04-07-2020 End: 12-14-2023 take 2 tablets by mouth twice daily metFORMIN ER (GLUCOPHAGE XR) 500 mg 24 hr tablet Indications: Type 2 diabetes mellitus without complication, without long-term current use of insulin (HCC) Take 2 tablets by mouth two times a day. 360 tablet 1 06/17/2023 12/14/2023 Active Start: 04-07-2020 End: 08-18-2024 take 1 tablet by mouth twice daily metFORMIN ER (GLUCOPHAGE XR) 500 mg 24 hr tablet Indications: Type 2 diabetes mellitus without complication, without long-term current use of insulin (HCC) Take 1 tablet by mouth twice daily. 60 tablet 11 05/22/2021 08/13/2021 Discontinued Start: 08-22-2017 End: 07-25-2020 take 2 tablets by mouth twice daily at mealtime Metformin 500 MG tablet Discontinued 1000 mg PO TWICE DAILY WITH MEALS 0 0 May 10, 2020 4:53pm July 25, 2020 3:03pm restart Friday Start: 08-22-2017 End: 07-25-2020 take 1000 mg by mouth twice daily at mealtime Metformin Discontinued 1000 MG PO TWICE DAILY WITH MEALS 0 May 10, 2020 4:53pm July 25, 2020 3:03pm restart Friday Start: 01-17-2017 End: 08-22-2017 take 1 tablet by mouth twice daily at mealtime Metformin 500 MG tablet Discontinued 500 mg PO TWICE DAILY WITH MEALS January 17, 2017 12:00am August 22, 2017 11:05am Start: 01-07-2017 take 2 tablets by mo uth twice daily METFORMIN HCL ER 500 MG [id number] Two tablets by mouth twice daily METFORMIN HCL [id number] Jd Kern MD Start: 01-07-2017 take 1 tablet by isac th once daily METFORMIN HCL ER 500 MG [id number] One tablet by mouth daily METFORMIN HCL [id number] Griselda Bell RN Comment on above: Take 2 tablets by mo uth twice daily. Take 1 tablet by isac th twice daily. Take 2 tablets by mo uth two times a day. methylPREDNISolone (1 source) Corticosteroid Start: 11-13-19 End: 11-19-19 methylPREDNISolone (MEDROL, WILLIS,) 4 mg Dose-Pack Indications: Rhus dermatitis Follow dosing instructions, take with food. 21 tablet 0 11/12/2022 11/18/2022 Active Comment on above: Follow dosing instru ctions, take with food. nitroglycerin 0.4 mg sublingual tablet (20 sources) Nitrate Vasodilator Start: 06-28-20 End: 03-25-20 nitroglycerin sublingual (NITROSTAT) 0.4 mg SL tablet Indications: Chest pain, unspecified type Dissolve 1 tablet under the tongue every 5 minutes as needed for chest pain. 1 Bottle of 25 1 03/25/2022 Active Start: 01-07-2019 End: 12-04-2023 Nitroglycerin 0.4 mg tablet, sublingual Discontinued 0.4 mg SL Q5M as needed for Chest Pain 23 02November 14, 2023 12:08pm December 04, 2023 1:06pm take one tablet every 5-15 to not exceed 3 tablets Start: 01-07-2019 End: 12-04-2023 Nitroglycerin Discontinued 0 .4 MG SL Q5M November 14, 2023 12:08pm December 04, 2023 1:06pm take one tablet every 5-15 to not exceed 3 tablets Start: 01-07-2017 End: 01-07-2019 Nitroglycerin 0.4 MG tablet Discontinued 0.4 mg SL Q5M as needed for Chest Pain January 17, 2017 12:00am January 07, 2019 10:15am Comment on above: Dissolve 1 tablet un luciano the tongue every 5 minutes as needed for chest pain. omega-3 acid ethyl esters (mcfp) 1000 mg oral capsule (20 sources) Start: 01-06-2018 take 1 capsule by mouth once daily [place] 4-Vlz-Ooq-Fish Oil (Fish Oil) 1,000 mg (120 mg-180 mg) capsule Active 1000 mg PO daily January 06, 2018 12:00am supplement omeprazole 40 mg delayed release oral capsule (20 sources) Proton Pump Inhibitor Start: 04-19-2024 take 1 capsule by mouth once daily Omeprazole 40 mg capsule,delayed release(DR/EC) Active 40 mg PO DAILY 90 April 19, 2024 12:00am Start: 06-28-2020 End: 10-30-2020 take 1 capsule by mouth once daily omeprazole (PRILOSEC) 40 mg capsule Take 1 capsule by mouth once daily. 90 capsule 06/28/2020 10/30/2020 Discontinued (Course of therapy completed) 12 hr ranolazine 1000 mg extended release oral tablet (20 sources) Anti-anginal Start: 10-30-2023 End: 12-22-2024 take 1 tablet by mouth twice daily Ranolazine 1,000 mg tablet extended release 12 hr Active 1000 mg PO TWICE A DAY 60 December 22, 2024 4:22pm heart Start: 06-03-2022 End: 06-28-2022 take 1 tablet by mouth twice daily at mealtime Ranolazine 1,000 mg tablet extended release 12 hr Discontinued 1000 mg PO TWICE A DAY 180 June 03, 2022 12:00am June 28, 2022 3:26pm this is a dose increase, take with food Start: 04-25-2020 End: 10-30-2023 take 1 tablet by mouth twice daily Ranolazine (Ranexa) 500 mg tablet extended release 12 hr Discontinued 500 mg PO TWICE A DAY 60 11 February 11, 2022 12:00am February 13, 2022 3:43pm Comment on above: Take 1 tablet by isac twice daily. Per cardio, Dr. Kern Take 1 tablet by isac twice daily. Per cardio, Dr. Kern, not taking as of 06/28/2022 Take 1 tablet by isac twice daily. Per [facility]: Dr. Kern Take 500 mg by mouth two times a day. Take 1 tablet by isac th two times a day. Per [facility] Super Beets (2 sources) Start: 02-22-2025 Super Beets Active PO February 22, 2025 12:00am ticagrelor 90 mg oral tablet (20 sources) Start: 10-11-2023 End: 09-13-2024 ticagrelor (BRILINTA) 90 mg tablet Take 1 tablet by mouth two times a day. Per [facility] 10/14/2023 Active Start: 11-21-2020 End: 12-23-2020 take 1 tablet by mouth twice daily Ticagrelor 90 MG tablet Discontinued 90 mg PO TWICE A DAY 60 0 November 21, 2020 12:00am December 22, 2020 12:00am December 23, 2020 12:17am Comment on above: Take 1 tablet by isac two times a day. Per [facility] zinc acetate 50 mg oral capsule (11 sources) Start: 10-30-2023 take 1 capsule by mouth once daily Zinc Acetate (Galzin) 50 mg (zinc) capsule Active 50 mg PO DAILY October 30, 2023 1:00am supplement zinc gluconate 50 mg oral tablet (20 sources) take 1 tablet by mouth once daily Zinc Gluconate 50 mg tablet Take 50 mg by mouth once daily. Active Completed/Discontinued Medications Medication Drug Class(es) Dates Sig (Normalized) Sig (Original) atenolol 25 mg oral tablet (20 sources) beta-Adrenergic Seun Start: 04-25-2020 End: 04-25-2020 take 3 tablets by mouth once daily Atenolol 25 mg tablet Discontinued 75 mg PO DAILY April 25, 2020 1:45pm April 25, 2020 2:16pm Start: 04-25-2020 End: 04-25-2020 take 75 mg by mouth once daily Atenolol Discontinued 7 5 MG PO DAILY April 25, 2020 1:45pm April 25, 2020 2:16pm Start: 11-13-2019 End: 11-02-2020 take 0.5 tablet by mouth once atenolol (TENORMIN) 50 m g tablet Take 0.5 tablets by mouth once daily. Per cardio Dr. Kern 11/13/2019 11/02/2020 Discontinued Start: 11-11-2019 End: 07-25-2020 take 1 tablet by mouth once daily Atenolol 25 mg tablet Discontinued 25 mg PO DAILY 90 3 July 03, 2020 10:43am July 25, 2020 3:04pm blood pressure Start: 02-26-2019 End: 02-26-2019 Atenolol 50 mg tablet Discon tinued 25 mg PO DAILY February 26, 2019 12:00am February 26, 2019 10:33am Start: 02-26-2019 End: 11-11-2019 take 1 tablet by mouth once daily Atenolol 50 mg tablet Discontinued 50 mg PO DAILY 90 3 February 26, 2019 12:00am November 11, 2019 2:48pm Start: 02-26-2019 End: 02-26-2019 take 25 mg by mouth once daily Atenolol Discontinued 2 5 MG PO DAILY February 26, 2019 12:00am February 26, 2019 10:33am Start: 01-06-2018 End: 04-06-2018 Atenolol 50 mg tablet Discon tinued 25 mg PO daily 45 90 0 January 06, 2018 2:03pm April 05, 2018 12:00am April 06, 2018 12:08am Start: 08-22-2017 End: 01-06-2018 Atenolol 50 mg tablet Discon tinued PO 45 90 0 August 22, 2017 1:00am January 06, 2018 2:06pm Start: 08-22-2017 End: 04-06-2018 take 25 mg by mouth once daily Atenolol Discontinued 2 5 MG PO daily 45 90 January 06, 2018 2:03pm April 06, 2018 12:08am Start: 01-08-2017 End: 08-22-2017 take 1 tablet by mouth once daily Atenolol 25 MG tablet Discontinued 25 mg PO DAILY January 17, 2017 12:00am August 22, 2017 11:52am azithromycin 250 mg oral tablet (1 source) Macrolide Antimicrobial Start: 06-29-2021 End: 07-04-2021 take 2 tablets by mouth once daily, then take 1 tablet by mouth once daily azithromycin (ZITHROMAX) 250 mg tablet Take 2 tablets by mouth once daily for 1 day, THEN 1 tablet once daily for 4 days. 6 tablet 0 06/29/2021 07/04/2021 Comment on above: Take 2 tablets by mo [facility] once daily for 1 day, THEN 1 tablet once daily for 4 days. Bupivacaine (1 source) Amide Local Anesthetic Start: 04-25-2022 End: 04-25-2022 bupivacaine 0.5 % 47.5 mg injection (MARCAINE MDV) carvedilol 3.125 mg oral tablet (20 sources) alpha-Adrenergic Seun, beta-Adrenergic Seun Start: 10-11-2023 End: 10-30-2023 take 1 tablet by mouth twice daily Carvedilol 3.125 mg Tablet Discontinued 3.125 mg PO TWICE A DAY 60 30 0 October 11, 2023 1:00am October 30, 2023 10:17am Start: 01-03-2021 End: 04-19-2022 take 1 tablet by mouth twice daily at mealtime Carvedilol (Coreg) 3.125 mg tablet Discontinued 3.125 mg PO TWICE A DAY 180 3 January 03, 2021 12:00am December 20, 2021 9:10am On Hold: Hypotension, syncope must administer with a meal/food Start: 11-21-2020 End: 12-21-2020 take 1 tablet by mouth twice daily Carvedilol 3.125 MG tablet Discontinued 3.125 mg PO TWICE A DAY 60 30 0 November 21, 2020 12:00am December 20, 2020 12:00am December 21, 2020 12:02am Comment on above: Take 1 tablet by isac twice daily. Take 1 tablet by isac two times a day. Per [facility] cephalexin 500 mg oral capsule (1 source) Cephalosporin Antibacterial Start: 08-05-2022 End: 08-05-2022 cephALEXin 500 mg cap(s) (KEFLEX) Start: 08-05-2022 End: 08-05-2022 cephALEXin 500 mg cap(s) (KE FLEX) diphenhydrAMINE hydrochloride 25 mg oral capsule (20 sources) Histamine-1 Receptor Antagonist Start: 04-03-2021 End: 05-13-2022 take 1 capsule by mouth every six hours as needed diphenhydrAMINE (BENADRYL) 25 mg capsule Take 1 capsule by mouth every 6 hours as needed. 20 capsule 04/03/2021 05/13/2022 Discontinued Comment on above: Take 1 capsule by mo [facility] every 6 hours as needed. docusate sodium 100 mg oral capsule (2 sources) Start: 03-06-2018 End: 10-30-2020 take 1 capsule by mouth twice daily docusate sodium (COLACE) 100 mg capsule Take 1 capsule by mouth twice daily. 40 capsule 03/06/2018 10/30/2020 Discontinued (Course of therapy completed) famotidine 20 mg oral tablet (2 sources) Histamine-2 Receptor Antagonist Start: 06-28-2020 End: 10-30-2020 take 1 tablet by mouth twice daily for gastroesophageal reflux disease famotidine (PEPCID) 20 mg tablet Take 1 tablet by mouth twice daily. For reflux. 180 tablet 06/28/2020 10/30/2020 Discontinued (Course of therapy completed) fludrocortisone acetate 0.1 mg oral tablet (20 sources) Start: 12-20-2021 End: 12-31-2021 take 1 tablet by mouth once daily Fludrocortisone 0.1 mg tablet Discontinued 0.1 mg PO DAILY 31 07December 20, 2021 12:00am December 31, 2021 1:18pm fluticasone propionate 0.05 mg/actuat metered dose nasal spray (20 sources) Corticosteroid Start: 10-23-2022 End: 10-09-2023 Fluticasone Propionate 50 mcg/actuation spray,suspension Discontinued 1 NMA INTRANASAL TWICE A DAY October 23, 2022 1:00am October 09, 2023 11:36pm administer into each nostril Start: 10-23-2022 End: 02-08-2024 take 1 spray(s) nasal route twice daily Fluticasone Propionate Discontinued 1 SPRAY INTRANASAL TWICE A DAY October 23, 2022 1:00am October 09, 2023 11:36pm administer into each nostril Start: 04-03-2022 End: 04-19-2024 take 2 spray(s) nasal route once daily fluticasone (FLONASE) 50 mcg/actuation nasal spray INSTILL 2 SPRAYS IN EACH NOSTRIL ONCE DAILY 16 g 11 06/25/2022 Active Start: 03-15-2021 End: 04-03-2022 take 2 spray(s) by mouth once daily fluticasone (FLONASE) 50 mcg/actuation nasal spray Use 2 Sprays in each nostril once daily. Rinse mouth after use. 3 Bottle 3 03/15/2021 04/03/2022 Discontinued Start: 06-28-2020 End: 02-14-2021 take 2 spray(s) by mouth once daily fluticasone (FLONASE) 50 mcg/actuation nasal spray Use 2 Sprays in each nostril once daily. Rinse mouth after use. 1 Bottle 11 06/28/2020 02/14/2021 Discontinued Comment on above: Use 2 Sprays in each nostril once daily. Rinse mouth after use. INSTILL 2 SPRAYS IN EACH NOSTRIL ONCE DAILY gabapentin 600 mg oral tablet (20 sources) Anti-epileptic Agent Start: 09-19-2022 End: 01-13-2023 take 1 tablet by mouth twice daily gabapentin (NEURONTIN) 600 mg tablet Take 1 tablet by mouth twice daily for 30 days. 60 tablet 09/19/2022 10/15/2022 Discontinued Start: 01-01-2021 End: 11-05-2022 take 1 tablet by mouth twice daily gabapentin (NEURONTIN) 800 mg tablet Take 1 tablet by mouth twice daily for 90 days. 60 tablet 1 05/18/2021 07/11/2021 Discontinued Start: 09-04-2020 End: 12-08-2020 take 1 capsule by mouth twice daily gabapentin (NEURONTIN) 400 mg capsule Take 1 capsule by mouth twice daily for 90 days. 180 capsule 09/04/2020 12/08/2020 Discontinued Start: 01-07-2019 End: 07-25-2020 Gabapentin 400 mg capsule Discontinued 1 NMA PO TWICE A DAY 180 90 0 January 07, 2019 12:00am July 25, 2020 3:04pm pain Start: 01-07-2019 End: 07-25-2020 take 1 capsule by mouth twice daily Gabapentin Discontinued 1 CAP PO TWICE A DAY 180 90 January 07, 2019 12:00am July 25, 2020 3:04pm Start: 01-08-2017 End: 01-07-2019 take 1 capsule by mouth at bedtime Gabapentin 100 MG capsule Discontinued 100 mg PO AT BEDTIME January 17, 2017 12:00am January 07, 2019 10:11am End: 07-20-2024 take 1 tablet by mouth once daily at bedtime gabapentin (NEURONTIN) 600 mg tablet Take 600 mg by mouth daily at bedtime. 07/20/2024 Discontinued Comment on above: Take 1 tablet by isac th twice daily for 90 days. Take 1 tablet by isac th twice daily for 30 days. Take 600 mg by mouth daily at bedtime. 1 ml galcanezumab-gnlm 120 mg/ml auto-injector (2 sources) Start: End: inject 1 mg by subcutaneous injection every month galcanezumab-gnlm 120 mg/mL subcutaneous pen injector (EMGALITY) Inject 1 Pen subcutaneously once every month. Refrigerate. Do not shake. Per Neurology, Dr. Laureano 03/02/2019 10/30/2020 Discontinued (Discontinued by Patient) glimepiride 2 mg oral tablet (20 sources) Sulfonylurea Start: End: take 1 tablet by mouth once daily at breakfast glimepiride (AMARYL) 2 mg tablet Take 1 tablet by mouth daily with breakfast. 30 tablet 5 06/26/2022 10/05/2022 Discontinued (Clinical Decision) Start: 02-26-2019 End: 05-15-2021 take 1 tablet by mouth once daily in the morning Glimepiride 4 mg tablet Discontinued 4 mg PO EVERY MORNING February 26, 2019 12:00am May 15, 2021 1:49pm diabetes Comment on above: Take 1 tablet by isac th daily with breakfast. hydrocortisone 25 mg/ml topical cream (1 source) Corticosteroid Start: End: hydrocortisone 2.5 % cream Apply 1 application to affected area twice daily. 45 g 06/28/2020 09/26/2020 24 hr isosorbide mononitrate 30 mg extended release oral tablet (20 sources) Nitrate Vasodilator Start: 025 End: take 1 tablet by mouth once daily in the morning, then take 1 tablet by mouth every twenty-four hours Isosorbide Mononitrate 30 mg tablet extended release 24 hr Discontinued 30 mg PO EVERY MORNING February 22, 2025 12:00am March 01, 2025 11:02am Start: 07-28-2024 End: 12-08-2024 take 1 tablet by mouth once daily in the morning, then take 1 tablet by mouth every twenty-four hours Isosorbide Mononitrate 30 mg tablet extended release 24 hr Discontinued 30 mg PO EVERY MORNING 30 July 28, 2024 1:00am December 08, 2024 8:17am Start: 03-04-2020 End: 04-25-2020 take 1 tablet by mouth once daily, then take 1 tablet by mouth every twenty-four hours Isosorbide Mononitrate 30 mg tablet extended release 24 hr Discontinued 30 mg PO DAILY 30 March 08, 2020 12:15pm April 25, 2020 2:16pm Start: 02-01-2019 End: 02-26-2019 take 1 tablet by mouth once daily, then take 1 tablet by mouth every twenty-four hours Isosorbide Mononitrate 30 mg tablet extended release 24 hr Discontinued 30 mg PO DAILY 30 February 01, 2019 12:00am February 26, 2019 10:32am isosorbide dinitrate 30 mg oral tablet (20 sources) Nitrate Vasodilator Start: 11-20-2020 End: 01-01-2021 take 1 tablet by mouth once daily Isosorbide Dinitrate 30 MG tablet Discontinued 30 mg PO DAILY November 20, 2020 12:00am January 01, 2021 8:22am Heart ketorolac tromethamine 5 mg/ml ophthalmic solution (20 sources) Nonsteroidal Anti-inflammatory Drug, Cyclooxygenase Inhibitor Start: 09-11-2023 End: 04-19-2024 take 1 drop(s) into the eye(s) four times daily keTORolac (ACULAR) 0.5 % ophthalmic solution Use 1 Drop in the right eye four times daily. 09/11/2023 04/19/2024 Discontinued (Course of therapy completed) Start: 01-27-2017 End: 08-22-2017 Ketorolac 1 DROP drops Disco ntinued 1 NMA RIGHT EYE 4 TIMES DAILY 1 January 27, 2017 12:00am August 22, 2017 11:54am Start: 01-27-2017 End: 08-22-2017 Ketorolac Discontinued 1 DRP RIGHT EYE 4 TIMES DAILY January 27, 2017 12:00am August 22, 2017 11:54am Comment on above: Use 1 Drop in the ri ght eye four times daily. lidocaine hydrochloride 0.02 mg/mg topical gel (1 source) Antiarrhythmic, Amide Local Anesthetic Start: 08-05-2022 End: 08-05-2022 lidocaine 2 % topical gel (XYLOCAINE) Start: 08-05-2022 End: 08-05-2022 lidocaine 2 % topical gel (X YLOCAINE) lisinopril 2.5 mg oral tablet (20 sources) Angiotensin Converting Enzyme Inhibitor Start: 03-15-2021 End: 09-06-2021 take 1 tablet by mouth once daily lisinopril 2.5 mg tablet Take 1 tablet by mouth once daily. 30 tablet 11 03/15/2021 09/06/2021 Discontinued Start: 11-21-2020 End: 12-29-2020 take 1 tablet by mouth once daily Lisinopril 2.5 MG tablet Discontinued 2.5 mg PO DAILY 30 0 November 21, 2020 12:00am December 29, 2020 8:54am Comment on above: Take 1 tablet by isac once daily. LORazepam 0.5 mg oral tablet (20 sources) Benzodiazepine Start: 04-19-20 End: 10-30-19 take 1 tablet by mouth twice daily as needed for anxiety Lorazepam 0.5 mg Tablet Discontinued 0.5 mg PO TWICE A DAY as needed for Anxiety May 23, 2022 12:00am October 30, 2023 10:17am Comment on above: Take 1 tablet by isac th twice daily as needed (anxiety) for up to 30 days. Take by mouth twice daily as needed. Take 1 tablet by isac th twice daily as needed for up to 30 days. losartan potassium 25 mg oral tablet (19 sources) Angiotensin 2 Receptor Seun Start: 10-11-19 End: 10-24-19 take 1 tablet by mouth once daily Losartan 25 mg Tablet Discontinued 25 mg PO DAILY 30 30 0 October 11, 2023 1:00am October 23, 2023 2:32pm Comment on above: Take 1 tablet by isac once daily. Per [facility] midodrine hydrochloride 10 mg oral tablet (20 sources) alpha-Adrenergic Agonist Start: 01-08-20 End: 08-21-20 take 1 tablet by mouth three times daily Midodrine 10 mg tablet Discontinued 10 mg PO THREE TIMES A DAY 270 90 3 July 15, 2022 5:15pm July 29, 2022 9:35am Start: 01-04-2022 End: 04-02-2022 take 1 tablet by mouth once daily at bedtime Midodrine 10 mg tablet Discontinued 10 mg PO THREE TIMES A DAY 90 30 11 February 25, 2022 11:06am April 02, 2022 9:30am do not give last dose of day after 6PM or within 4 hrs of bedtime 02/27/22 Currently om Midodrine 10 mg TID. Michael instructed if BP goes above 140/90 should decrease to 5 mg TID Start: 12-31-2021 End: 01-04-2022 take 1 tablet by mouth once daily at bedtime Midodrine 5 mg tablet Discontinued 5 mg PO THREE TIMES A DAY 90 December 31, 2021 12:00am January 04, 2022 9:29am do not give last dose of day after 6PM or within 4 hrs of bedtime Comment on above: Take 1 tablet by isac three times daily. Per [facility] nystatin [id number] unt/ml oral suspension (20 sources) Polyene Antifungal Start: 09-03-2023 End: 07-20-2024 nystatin (MYCOSTATIN) 100,000 unit/mL suspension Take 5 mL by mouth four times daily. 1tsp swish in mouth for several minutes, then swallow (or expectorate) 4 times daily until gone. 200 mL 09/03/2023 07/20/2024 Discontinued Start: 04-01-2023 End: 06-26-2023 nystatin (MYCOSTATIN) 100,00 0 unit/mL suspension Indications: Mouth pain Take 5 mL by mouth four times daily. 1tsp swish in mouth for several minutes, then swallow (or expectorate) 4 times daily until gone. 200 mL 1 06/26/2023 Active Comment on above: Take 5 mL by mouth f our times daily. 1tsp swish in mouth for several minutes, then swallow (or expectorate) 4 times daily until gone. ofloxacin 3 mg/ml ophthalmic solution (13 sources) Quinolone Antimicrobial Start: 09-11-19 End: 04-19-20 take 1 drop(s) into the eye(s) four times daily ofloxacin (OCUFLOX) 0.3 % ophthalmic solution Use 1 Drop in the right eye four times daily. 09/11/2023 04/19/2024 Discontinued (Course of therapy completed) Comment on above: Use 1 Drop in the ri ght eye four times daily. omega-3 fatty acids 1,000 mg cap (20 sources) Start: 09-06-19 End: 07-20-20 take 2 capsules by mouth once daily omega-3 fatty acids 1,000 mg cap Take 2 capsules by mouth once daily. 60 capsule 11 09/06/2021 07/20/2024 Discontinued Start: 09-06-2021 take 2 capsules by m outh once daily omega-3 fatty acids 1,000 mg cap Take 2 capsules by mouth once daily. 60 capsule 11 09/06/2021 Active Start: 03-15-2021 End: 09-06-2021 take 2 capsules by mouth once daily omega-3 fatty acids 1,000 mg cap Take 2 capsules by mouth once daily. 60 capsule 11 03/15/2021 09/06/2021 Discontinued Start: 06-28-2020 End: 02-15-2021 take 2 capsules by mouth once daily omega-3 fatty acids 1,000 mg cap Take 2 capsules by mouth once daily. 180 capsule 06/28/2020 02/15/2021 Discontinued Comment on above: Take 2 capsules by m outh once daily. pantoprazole 40 mg delayed release oral tablet (20 sources) Proton Pump Inhibitor Start: 07-16-20 End: 04-19-20 take 1 tablet by mouth once daily Pantoprazole 40 mg tablet,delayed release (DR/EC) Discontinued 40 mg PO DAILY December 03, 2023 12:00am December 30, 2023 8:41am reflux Comment on above: Take 1 tablet by isac th daily before breakfast. Take on empty stomach, 1/2 hr before meal. pioglitazone 45 mg oral tablet (20 sources) Peroxisome Proliferator Receptor alpha Agonist, Peroxisome Proliferator Receptor gamma Agonist, Thiazolidinedione Start: 12-03-19 End: 12-30-19 take 1 tablet by mouth once daily Pioglitazone 45 mg tablet Discontinued 45 mg PO DAILY December 03, 2023 12:00am December 30, 2023 8:40am diabetes Start: 11-29-2022 End: 10-30-2023 take 1 tablet by mouth once daily Pioglitazone 45 mg tablet Discontinued 45 mg PO DAILY October 09, 2023 1:00am October 30, 2023 10:17am diabetes Start: 06-19-2022 End: 10-11-2023 take 1 tablet by mouth once daily Pioglitazone (Actos) 30 mg Tablet Discontinued 30 mg PO DAILY June 19, 2022 12:00am October 11, 2023 12:28pm diabetes Start: 05-27-2022 End: 06-18-2022 take 1 tablet by mouth once daily pioglitazone (ACTOS) 15 mg tablet Take 1 tablet by mouth once daily. 90 tablet 1 05/27/2022 06/18/2022 Discontinued Start: 05-23-2022 End: 05-24-2022 take 1 tablet by mouth once daily pioglitazone (ACTOS) 15 mg tablet Take 1 tablet by mouth once daily. 90 tablet 1 05/27/2022 Active Start: 07-25-2020 End: 05-15-2021 take 2 tablets by mouth every other day Pioglitazone 15 mg tablet Discontinued 30 mg PO EVERY OTHER DAY 90 90 0 July 25, 2020 3:03pm May 15, 2021 1:49pm diabetes Start: 06-28-2020 End: 10-16-2020 take 1 tablet by mouth once daily pioglitazone (ACTOS) 30 mg tablet Take 1 tablet by mouth once daily. 90 tablet 06/28/2020 10/16/2020 Discontinued Start: 01-07-2019 End: 07-25-2020 Pioglitazone 15 mg tablet Discontinued 1 {tbl} PO EVERY OTHER DAY 90 90 0 January 07, 2019 12:00am July 25, 2020 3:04pm diabetes Start: 01-07-2019 End: 05-15-2021 take 30 mg by mouth every other day Pioglitazone Discontinued 30 MG PO EVERY OTHER DAY 90 90 July 25, 2020 3:03pm May 15, 2021 1:49pm Comment on above: Take 1 tablet by isac th once daily. polyethylene glycol 3350 [id number] mg / potassium chloride 2970 mg / sodium bicarbonate 6740 mg / sodium chloride 5860 mg / sodium sulfate 00326 mg powder for oral solution (1 source) Osmotic Laxative Start: 2 End: 2 peg 3350-Electrolytes (GOLYTELY) 236-22.74-6.74 -5.86 gram suspension Indications: Anemia, unspecified type Take 4,000 mL by mouth one time only for 1 dose. Refer to printed prep instructions from your provider. 4000 mL 0 06/27/2022 06/27/2022 Comment on above: Take 4,000 mL by isac th one time only for 1 dose. Refer to printed prep instructions from your provider. predniSONE 20 mg oral tablet (20 sources) Start: 3 End: 3 take 1 tablet by mouth once predniSONE (DELTASONE) 20 mg tablet One tab PO daily per cardio. 15 tablet 0 10/05/2022 11/21/2022 Discontinued Start: 06-24-2022 End: 06-26-2022 Prednisone 10 mg tablet Disc ontinued 10 mg PO .COMPLEX 21 0 June 24, 2022 12:00am June 26, 2022 4:32pm 10 mg daily for 14 days, then 5 mg for 14 days, then stop. Start: 04-19-2022 End: 07-07-2022 take 1 tablet by mouth once daily Prednisone 20 mg tablet Discontinued 20 mg PO DAILY April 19, 2022 12:00am June 24, 2022 2:51pm Start: 04-19-2022 take 40 mg by mouth once daily Prednisone Active 40 MG PO DAILY April 19, 2022 12:00am Start: 03-27-2022 End: 04-01-2022 take 1 tablet by mouth once daily Prednisone 20 mg tablet Discontinued 20 mg PO DAILY 30 6 March 27, 2022 5:46pm April 01, 2022 5:00pm Start: 12-29-2021 take 40 mg by mouth once daily Prednisone Active 40 MG PO DAILY 8 4 December 29, 2021 8:55pm Comment on above: One daily per cardio , Dr. kern One tab PO daily per cardio. 24 hr pseudoephedrine hydrochloride 240 mg extended release oral tablet (20 sources) alpha-Adrenergic Agonist Start: 09-10-19 End: 09-20-19 take 1 tablet by mouth once daily, then take 1 tablet by mouth every twenty-four hours Pseudoephedrine Hcl (Sudafed 24 Hour) 240 mg tablet extended release 24 hr Discontinued 240 mg PO DAILY September 10, 2022 1:00am September 20, 2022 10:[address] Grady to help hypotension Start: 08-21-2022 End: 08-28-2022 take 1 tablet by mouth three times daily pseudoephedrine (SUDAFED) 30 mg tablet Take 1 tablet by mouth three times daily. 120 tablet 5 08/21/2022 08/28/2022 Discontinued (Discontinued by Patient) Comment on above: Take 1 tablet by isac th three times daily. pyridostigmine bromide 60 mg oral tablet (20 sources) Start: End: take 1 tablet by mouth once daily, then take 1 tablet by mouth twice daily Pyridostigmine [place] (Mestinon) 60 mg tablet Discontinued 60 mg PO .COMPLEX September 20, 2022 1:00am October 23, 2022 9:31am 60 mg orally once a day for 2 weeks , then bid if tolerated (ordered by Dr. العلي neurologist); Start: 09-19-2022 End: 02-19-2023 take 1 tablet by mouth twice daily, then take 1 tablet by mouth at bedtime, then take 1 tablet by mouth in the morning, then take 1 tablet by mouth in the evening pyridostigmine (MESTINON) 60 mg tablet Take 1 tablet by mouth twice daily. Take one tablet at bedtime for two weeks then increase to one tablet in AM and one tablet in PM. 60 tablet 2 09/19/2022 10/05/2022 Discontinued Comment on above: Take 1 tablet by isac th twice daily. Take one tablet at bedtime for two weeks then increase to one tablet in AM and one tablet in PM. Take 1 tablet by isac th twice daily. raNITIdine 150 mg oral tablet (20 sources) Histamine-2 Receptor Antagonist Start: 01-07-2019 End: 05-30-2020 Ranitidine Hcl 150 mg tablet Discontinued 1 {tbl} PO EVERY OTHER DAY 180 90 0 January 07, 2019 12:00am May 30, 2020 8:50am reflux Start: 01-07-2019 End: 05-30-2020 take 1 tablet by mouth every other day Ranitidine Hcl Discontinued 1 TABLET PO EVERY OTHER DAY 180 90 January 06, 2019 11:00pm May 30, 2020 7:50am Start: 01-07-2019 End: 05-30-2020 take 1 tablet by mouth every other day Ranitidine Hcl Discontinued 1 TABLET PO EVERY OTHER DAY 180 90 January 07, 2019 12:00am May 30, 2020 8:50am sertraline 50 mg oral tablet (20 sources) Serotonin Reuptake Inhibitor Start: 10-05-2022 End: 11-28-2022 take 1 tablet by mouth once daily sertraline (ZOLOFT) 50 mg tablet 1 tablet by mouth once a day. 30 tablet 3 10/05/2022 11/28/2022 Discontinued Start: 05-13-2022 End: 08-05-2022 take 1 tablet by mouth once daily Sertraline 50 mg Tab let Discontinued 50 mg PO DAILY May 23, 2022 12:00am June 28, 2022 3:28pm Start: 04-19-2022 End: 05-13-2022 take 1 tablet by mouth once daily sertraline (ZOLOFT) 25 mg tablet Take 1 tablet by mouth once daily. 30 tablet 5 04/19/2022 05/13/2022 Discontinued Start: 06-28-2020 End: 10-30-2020 take 1 tablet by mouth once daily for depression sertraline (ZOLOFT) 100 mg tablet Take 1 tablet by mouth once daily. For depression 30 tablet 2 06/28/2020 10/30/2020 Discontinued (Discontinued by Patient) Start: 03-04-2020 End: 05-30-2020 take 1 tablet by mouth once daily Sertraline 100 MG ta blet Discontinued 100 mg PO DAILY March 04, 2020 12:00am May 30, 2020 8:51am mental health Comment on above: Take 1 tablet by isac th once daily. 1 tablet by mouth on ce a day. SITagliptin 50 mg oral tablet (7 sources) Dipeptidyl Peptidase 4 Inhibitor Start: 05-15-20 End: 06-18-20 take 1 tablet by mouth once daily SITagliptin (JANUVIA) 50 mg tablet Take 1 tablet by mouth once daily. 30 tablet 5 05/15/2022 06/18/2022 Discontinued (Cost of medication) Comment on above: Take 1 tablet by isac once daily. triamcinolone acetonide 1 mg/ml topical cream (20 sources) Corticosteroid Start: 03-10-20 End: 07-20-20 triamcinolone acetonide (KENALOG) 0.1 % cream Apply 1 application to affected area three times daily. Apply sparingly to area for rash/itching. 80 g 03/10/2023 07/20/2024 Discontinued Start: 11-12-2022 End: 11-22-2022 triamcinolone acetonide (LYLA ALOG) 0.1 % cream Indications: Rhus dermatitis Apply 1 application to affected area three times daily for 10 days. Apply sparingly to area for rash/itching. 80 g 1 11/12/2022 11/22/2022 Active Start: 04-25-2022 End: 04-25-2022 triamcinolone acetonide 40 m g injection (KeNALog 40) Comment on above: Apply 1 application to affected area three times daily for 10 days. Apply sparingly to area for rash/itching. Apply 1 application to affected area three times daily. Apply sparingly to area for rash/itching. zolpidem tartrate 5 mg oral tablet (5 sources) gamma-Aminobutyric Acid-ergic Agonist Start: End: take 1 tablet by mouth once for sleep zolpidem (AMBIEN) 5 mg tablet Indications: Chronic insomnia Take 1 tablet by mouth one time only for 1 dose. FOR INSOMNIA. Take at the sleep lab before sleep study. 1 tablet 10/22/2024 12/13/2024 Discontinued Problems Active Problems Problem Classification Problem Date Documented Da te Episodic/Chronic Abdominal hernia (1 source) Hiatal hernia; Translations: [Diaphragmatic hernia without obstruction or gangrene] Episodic Adjustment disorders (20 sources) Adjustment disorder with depressed mood; Translations: [Adjustment disorder with depressed mood] Onset: 7 08-04-2015 Chronic Allergic reactions (20 sources) Allergy to drug; Translations: [Allergy status to unspecified drugs, medicaments and biological substances status] Episodic Anxiety disorders (4 sources) Panic disorder; Translations: [Panic disorder [episodic paroxysmal anxiety]] Chronic Coma; stupor; and brain damage (1 source) Loss of consciousness; Translations: [Unspecified coma] Episodic Complications of surgical procedures or medical care (20 sources) Arterial complication of procedure; Translations: [Complication of unspecified artery following a procedure, not elsewhere classified, initial encounter] 03-31-2022 Episodic Conditions associated with dizziness or vertigo (18 sources) Dizziness; Translations: [Dizziness and giddiness] Onset: 5 Episodic Coronary atherosclerosis and other heart disease (20 sources) Atherosclerotic heart disease of [place] coronary artery without angina pectoris; Translations: [Lipid-rich atherosclerosis of coronary artery] Onset: 7 02-07-2017 Chronic Comment on above: PCI-RODDY-Mid LAD w/ 2 .5 x 16 mm Synergy Stent and RODDY-Mid Ramus w/ 2.25 x 16 mm Synergy MR 01/20/2017; WUT-VLI-Cfyzqo LCx w/ 2.25 x 08 mm Synergy MR Stent 05/10/2020; MOH-MLQ-Wkuc LCx w/ 2.5 x 12 mm Synergy Stent 11/20/20; PCI-RODDY-Mid RCA w/ 3.0 x 9 mm Orsiro Stent and POBA- distal RCA 04/26/21; YHU-DII-ING-Prox LCx w/ 2.5 x 9 mm Orsiro Stent 07/23/21; 10/10/2023: Shockwave lithotripsy and RODDY to Prox OM1 and Mid RCA using 3.5 X 22, 3.0 X 18 and 3.0.8mm Coronary atherosclerosis and other heart disease (13 sources) Presence of coronary angioplasty implant and graft; Translations: [Percutaneous transluminal coronary angioplasty status] Onset: 1 Episodic Coronary atherosclerosis and other heart disease (2 sources) Coronary atherosclerosis and other heart disease Crushing injury or internal injury (20 sources) Injury of radial artery; Translations: [Unspecified injury of radial artery at forearm level, unspecified arm, initial encounter] 03-31-2022 Episodic Deficiency and other anemia (20 sources) Anemia of chronic disease; Translations: [Anemia in other chronic diseases classified elsewhere] Onset: 1 02-14-2021 Chronic Deficiency and other anemia (1 source) Anemia in other chronic diseases classified elsewhere; Translations: [Anemia of chronic disease] Onset: 1 Chronic Deficiency and other anemia (3 sources) Anemia; Translations: [Anemia, unspecified] Episodic Deficiency and other anemia (1 source) Iron deficiency anemia, unspecified; Translations: [Iron deficiency anemia, unspecified iron deficiency anemia type] Onset: 2 Episodic Deficiency and other anemia (1 source) Anemia, unspecified; Translations: [Anemia, unspecified type] Onset: 3 Episodic Diabetes mellitus with complications (20 sources) Type 2 diabetes mellitus with hyperglycemia; Translations: [Type 2 diabetes mellitus] Onset: 7 04-12-2020 Chronic Diabetes mellitus without complication (20 sources) Type 2 diabetes mellitus without complication; Translations: [Type 2 diabetes mellitus without complications] Onset: 7 01-07-2017 Chronic Diseases of mouth; excluding dental (2 sources) Oral lesion; Translations: [Other lesions of oral mucosa] 04-01-2023 Episodic Disorders of lipid metabolism (20 sources) Hyperlipidemia; Translations: [Mixed hyperlipidemia] Onset: 5 Resolved: 5 01-07-2017 Chronic Diverticulosis and diverticulitis (1 source) Diverticular disease; Translations: [Diverticulosis of intestine, part unspecified, without perforation or abscess without bleeding] Chronic E Codes: Adverse effects of medical drugs (1 source) Adverse reaction to drug; Translations: [Adverse effect of unspecified drugs, medicaments and biological substances, initial encounter] 08-12-2024 Episodic Esophageal disorders (20 sources) Gastroesophageal reflux disease without esophagitis; Translations: [Gastro-esophageal reflux disease without esophagitis] Onset: 8 06-12-2018 Chronic Essential hypertension (20 sources) Hypertensive disorder; Translations: [Benign essential hypertension] Onset: 2 01-07-2017 Chronic Fluid and electrolyte disorders (6 sources) Hyponatremia; Translations: [Hypo-osmolality and hyponatremia] Episodic Gastritis and duodenitis (1 source) Gastritis; Translations: [Other gastritis without bleeding] Episodic Headache; including migraine (20 sources) Migraine variants; Translations: [Other migraine, not intractable, without status migrainosus] Onset: 6 08-27-2021 Chronic Headache; including migraine (1 source) Headache; including migraine; Translations: [New onset headache] Onset: 5 Hyperplasia of prostate (20 sources) Benign prostatic hyperplasia; Translations: [Benign prostatic hyperplasia without lower urinary tract symptoms] Onset: 7 10-03-2016 Chronic Immunizations and screening for infectious disease (20 sources) Procedure started; Translations: [Encounter for immunization] 11-12-2021 Episodic Intestinal infection (5 sources) Viral gastroenteritis due to Thayne-like agent; Translations: [Acute gastroenteropathy due to Thayne agent] 09-04-2024 Episodic Intracranial injury (16 sources) Concussion injury of body structure; Translations: [Concussion] 01-24-2023 Episodic Malaise and fatigue (20 sources) Fatigue; Translations: [Other fatigue] Onset: 5 Episodic Miscellaneous mental health disorders (20 sources) Primary insomnia; Translations: [Primary insomnia] Onset: 9 03-02-2019 Chronic Nonspecific chest pain (20 sources) Chest pain on exertion; Translations: [Chest pain] Onset: 7 Resolved: 7 01-07-2017 Episodic Occlusion or stenosis of precerebral arteries (20 sources) Bilateral stenosis of carotid arteries; Translations: [Occlusion and stenosis of bilateral carotid arteries] Onset: 5 11-01-2021 Chronic Comment on above: 50 to 69% stenosis r ight internal carotid artery; proximal left internal carotid artery with 50 to 69% stenosis. (possibly closer to upper limits) 09/2020 Open wounds of extremities (20 sources) Laceration of finger; Translations: [Laceration without foreign body of unspecified finger without damage to nail, initial encounter] 04-23-2021 Episodic Other circulatory disease (20 sources) Low blood pressure; Translations: [Hypotension, unspecified] Episodic Other circulatory disease (16 sources) Hypotension, unspecified; Translations: [Hypotension, unspecified] Onset: 5 Episodic Other circulatory disease (5 sources) Orthostatic hypotension; Translations: [Orthostatic hypotension] Episodic Other circulatory disease (20 sources) H/O: heart disorder; Translations: [Personal history of other diseases of the circulatory system] 01-28-2023 Episodic Other circulatory disease (3 sources) Personal history of other diseases of the circulatory system; Translations: [Personal history of other diseases of circulatory system] 10-09-2023 Episodic Other connective tissue disease (1 source) Muscle finding; Translations: [Other specified disorders of muscle] Episodic Other connective tissue disease (1 source) Muscle pain; Translations: [Myalgia, unspecified site] Episodic Other connective tissue disease (2 sources) Pain of left forearm; Translations: [Pain in left forearm] 12-22-2023 Episodic Other connective tissue disease (2 sources) Pain of left hand; Translations: [Pain in left hand] 12-22-2023 Episodic Other diseases of bladder and urethra (2 sources) Hypertrophy of bladder; Translations: [Other specified disorders of bladder] Chronic Other gastrointestinal disorders (5 sources) Diarrhea; Translations: [Diarrhea, unspecified] 09-04-2024 Episodic Other hereditary and degenerative nervous system conditions (2 sources) Restless legs; Translations: [Restless legs syndrome] 10-22-2024 Chronic Other hereditary and degenerative nervous system conditions (1 source) Restless legs syndrome; Translations: [RLS (restless legs syndrome)] Onset: Chronic Other injuries and conditions due to external causes (20 sources) Closed injury of head; Translations: [Unspecified injury of head, initial encounter] 11-10-2021 Episodic Other injuries and conditions due to external causes (20 sources) Neurapraxia; Translations: [Other injury of unspecified body region, initial encounter] 11-01-2019 Episodic Other injuries and conditions due to external causes (20 sources) Injury of head; Translations: [Unspecified injury of head, sequela] Episodic Other injuries and conditions due to external causes (2 sources) Injury of left foot; Translations: [Unspecified injury of left foot, initial encounter] Episodic Other injuries and conditions due to external causes (12 sources) Angioedema; Translations: [Angioneurotic edema, initial encounter] 10-23-2023 Episodic Other liver diseases (1 source) Alkaline phosphatase raised; Translations: [Abnormal levels of other serum enzymes] 07-21-2024 Episodic Other lower respiratory disease (20 sources) Dyspnea on exertion; Translations: [Dyspnea, unspecified] 06-16-2021 Episodic Other lower respiratory disease (20 sources) Dyspnea; Translations: [Shortness of breath] 08-24-2021 Episodic Other lower respiratory disease (20 sources) Chest pain on breathing; Translations: [Chest pain on breathing] 11-12-2021 Episodic Other lower respiratory disease (2 sources) Snoring; Translations: [Snoring] 09-06-2024 Episodic Other nervous system disorders (20 sources) Neuropathy; Translations: [Polyneuropathy, unspecified] Onset: 8 06-12-2018 Chronic Other nervous system disorders (1 source) Polyneuropathy, unspecified; Translations: [Neuropathy] Onset: 8 Chronic Other nervous system disorders (20 sources) Finding of hand region; Translations: [Tremor, unspecified] 03-31-2022 Episodic Other nervous system disorders (1 source) Numbness of face; Translations: [Anesthesia of skin] Episodic Other nervous system disorders (19 sources) Intermittent tremor; Translations: [Tremor, unspecified] 03-30-2022 Episodic Other nervous system disorders (1 source) Tremor; Translations: [Tremor, unspecified] Episodic Other non-traumatic joint disorders (20 sources) Pain in wrist; Translations: [Pain in unspecified wrist] 11-12-2021 Episodic Other non-traumatic joint disorders (1 source) Pain in right shoulder; Translations: [Pain in joint, shoulder region] 10-09-2020 Episodic Other non-traumatic joint disorders (2 sources) Pain of right wrist; Translations: [Pain in right wrist] 07-24-2024 Episodic Other nutritional; endocrine; and metabolic disorders (6 sources) Abnormal weight loss; Translations: [Abnormal weight loss] Episodic Other nutritional; endocrine; and metabolic disorders (16 sources) H/O: diabetes mellitus; Translations: [Personal history of other endocrine, nutritional and metabolic disease] 01-28-2023 Episodic Other nutritional; endocrine; and metabolic disorders (15 sources) H/O: metabolic disorder; Translations: [Personal history of other endocrine, nutritional and metabolic disease] 10-09-2023 Episodic Other nutritional; endocrine; and metabolic disorders (3 sources) Personal history of other endocrine, nutritional and metabolic disease; Translations: [Personal history of other endocrine, metabolic, and immunity disorders] 10-09-2023 Episodic Other nutritional; endocrine; and metabolic disorders (1 source) Weight loss; Translations: [Abnormal weight loss] 07-20-2024 Episodic Other screening for suspected conditions (not mental disorders or infectious disease) (3 sources) Imaging of thorax abnormal; Translations: [Abnormal findings on diagnostic imaging of other specified body structures] Onset: 09-06-2024 Chronic Other skin disorders (20 sources) Lip swelling; Translations: [Localized swelling, mass and lump, head] 01-06-2022 Episodic Other skin disorders (1 source) Eruption; Translations: [Rash and other nonspecific skin eruption] 03-10-2023 Episodic Other upper respiratory infections (20 sources) Chronic sinusitis; Translations: [Chronic sinusitis, unspecified] 08-04-2015 Chronic Peripheral and visceral atherosclerosis (10 sources) Intermittent claudication; Translations: [Peripheral vascular disease, unspecified] Onset: 12-08-2024 Chronic Residual codes; unclassified (1 source) Hypersomnia; Translations: [Hypersomnia, unspecified] 09-06-2024 Chronic Residual codes; unclassified (2 sources) Dream enactment behavior; Translations: [REM sleep behavior disorder] 10-22-2024 Chronic Residual codes; unclassified (2 sources) Unrefreshed by sleep; Translations: [Other sleep disorders] 10-22-2024 Chronic Residual codes; unclassified (1 source) Daytime somnolence; Translations: [Other hypersomnia] 10-22-2024 Chronic Residual codes; unclassified (1 source) Obstructive sleep apnea syndrome; Translations: [Obstructive sleep apnea (adult) (pediatric)] 12-13-2024 Chronic Residual codes; unclassified (2 sources) REM sleep behavior disorder; 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] Onset: 5 Chronic Residual codes; unclassified (1 source) Other sleep disorders; Translations: [Non-restorative sleep] Onset: 5 Chronic Residual codes; unclassified (1 source) Other hypersomnia; Translations: [Excessive daytime sleepiness] Onset: 5 Chronic Residual codes; unclassified (1 source) Hypersomnia, unspecified; Translations: [Hypersomnolence] Onset: 5 Chronic Residual codes; unclassified (1 source) Left before being seen; Translations: [Procedure and treatment not carried out due to patient leaving prior to being seen by health care provider] 06-19-2023 Episodic Residual codes; unclassified (1 source) Disorders of initiating and maintaining sleep; Translations: [Insomnia, unspecified] 09-06-2024 Episodic Residual codes; unclassified (1 source) Insomnia; Translations: [Insomnia, unspecified] 12-13-2024 Episodic Residual codes; unclassified (1 source) Frequent night waking; Translations: [Insomnia, unspecified] 12-13-2024 Episodic Spondylosis; intervertebral disc disorders; other back problems (20 sources) Degeneration of cervical intervertebral disc; Translations: [Other cervical disc degeneration, unspecified cervical region] Onset: 2 10-03-2016 Chronic Spondylosis; intervertebral disc disorders; other back problems (20 sources) Low back pain; Translations: [Lumbago] Onset: 7 Resolved: 9 08-27-2021 Episodic Superficial injury; contusion (20 sources) Contusion of lower back; Translations: [Contusion of lower back and pelvis, initial encounter] 01-24-2023 Episodic Syncope (20 sources) Syncope; Translations: [Syncope and collapse] Onset: Episodic Comment on above: 12/2019, 07/2021, 10/03 022, 10/2021; loop recorder implanted 11/2021 Unclassified (3 sources) Placement of stent in coronary artery ; Translations: [Presence of coronary angioplasty implant and graft] Onset: 7 02-07-2017 Unclassified (1 source) Unknown / UNK(Unknown) Onset: Unclassified (3 sources) Long-term drug therapy; Translations: [Other construction specialist (current) drug therapy] Onset: 7 01-07-2017 Past or Other Problems Problem Classification Problem Date Documented Date Episodic/Chronic Administrative/social admission (20 sources) Illiteracy; Translations: [Illiteracy and low-level literacy] Onset: 10-09-2020 10-09-2020 Episodic Deficiency and other anemia (20 sources) Iron deficiency anemia; Translations: [Iron deficiency anemia, unspecified] Onset: 08-21-2022 Episodic Diabetes mellitus without complication (20 sources) Hyperglycemia; Translations: [Hyperglycemia, unspecified] Onset: 06-26-2022 Episodic Headache; including migraine (20 sources) Cervicogenic headache; Translations: [Cervicogenic headache] Onset: 10-16-2015 07-09-2016 Episodic Other aftercare (9 sources) Other construction specialist (current) drug therapy; Translations: [Other prison (current) drug therapy] Onset: 01-07-2017 01-07-2017 Episodic Other aftercare (20 sources) Patient encounter status; Translations: [Other prison (current) drug therapy] Onset: 08-16-2010 Resolved: 08-30-2010 11-08-2021 Episodic Other circulatory disease (15 sources) Cardiovascular stress test abnormal; Translations: [Abnormal result of other cardiovascular function study] Onset: 01-07-2017 Resolved: 02-07-2017 02-07-2017 Episodic Other connective tissue disease (20 sources) [...] dermatitis, unspecified] Onset: 08-04-2015 10-03-2016 Episodic Other inflammatory condition of skin (20 sources) Pruritus of skin; Translations: [Pruritus, unspecified] Onset: 03-02-2009 Resolved: 04-12-2020 04-12-2020 Episodic Other liver diseases (1 source) Abnormal levels of other serum enzymes; Translations: [Elevated alkaline phosphatase level] Onset: 08-09-2024 Episodic Other lower respiratory disease (1 source) Snoring; Translations: [Snores] Onset: 09-06-2024 Episodic Other male genital disorders (20 sources) Disorder of prostate; Translations: [Disorder of prostate, unspecified] Onset: 10-03-2016 10-03-2016 Episodic Other non-traumatic joint disorders (20 sources) Pain in right knee; Translations: [Pain in joint, lower leg] Onset: 10-10-2016 06-04-2017 Episodic Other non-traumatic joint disorders (1 source) Pain in right wrist; Translations: [Wrist pain, right] Onset: 07-24-2024 Episodic Other nutritional; endocrine; and metabolic disorders (1 source) Abnormal weight loss; Translations: [Weight loss] Onset: 07-20-2024 Episodic Other screening for suspected conditions (not mental disorders or infectious disease) (20 sources) Other specified abnormal findings of blood chemistry; Translations: [Other abnormal blood chemistry] Onset: 08-05-2015 10-30-2018 Episodic Residual codes; unclassified (20 sources) Other specified postprocedural states; Translations: [Personal history of surgery to other organs] Onset: 12-13-2021 Episodic Residual codes; unclassified (1 source) Insomnia, unspecified; Translations: [Sleep initiation dysfunction] Onset: 09-06-2024 Episodic Sprains and strains (20 sources) Strain of neck muscle; Translations: [Strain of muscle, fascia and tendon at neck level, initial encounter] Onset: 07-30-2010 Resolved: 08-30-2010 03-05-2020 Episodic Unclassified (20 sources) Age more than 65 years; Translations: [Over 65 years old] 07-21-2021 Viral infection (20 sources) Disease caused by 2019-nCoV; Translations: [COVID-19] Onset: 06-01-2021 03-31-2022 Episodic Results Test Name Value Interpretation Reference Range Facility Absolute lymphocyte countOrd ered By: Pop Shah on 03-05-2025 Lymphocytes Auto (Unsp spec) [#/Vol] 1.38 10*3/uL 0.83-4.51 [facility] Absolute neutrophil countOrd ered By: Pop Shah on 03-05-2025 Neutrophils (Bld) [#/Vol] 4.0 10*3/uL 2.0-7.7 [facility] Anion gap in Serum or Plasma Ordered By: Pop Shah on 03-05-2025 Anion gap [Moles/Vol] 17 mmol/L High 5-15 [facility] Automated lymphocyte count a s percentage of total leukocytesOrdered By: Pop Shah on 03-05-2025 Lymphocytes/100 WBC Auto (Unsp spec) 21.2 % 19-41 [facility] BUN/creatinine ratioOrdered By: Pop Shah on 03-05-2025 Urea nitrogen/Creatinine [Mass ratio] 22.5 mg/mg High 10-20 [facility] Basic Metabolic Profile (BMP )on 03-05-2025 BUN/CRE 22.5 RATIO High - [facility] Comment on above: Performed By: #### L 3410.9999, L505.5000 #### [facility] [address] [place], [address] Calcium [Mass/Vol] 9.1 mg/dL Normal 7.6-11.0 [facility] Comment on above: Performed By: #### L 3410.9999, L505.5000 #### [facility] [address] [place], [address] Chloride [Moles/Vol] 100 mmol/L Normal 98-108 [facility] Comment on above: Performed By: #### L 3410.9999, L505.5000 #### [facility] [address] [place], [address] CO2 [Moles/Vol] 19.9 mmol/L Low 21.0-32.0 [facility] Comment on above: Performed By: #### L 3410.9999, L505.5000 #### [facility] [address] [place], [address] Creatinine [Mass/Vol] 0.91 mg/dL Normal 0.70-1.20 [facility] Comment on above: Performed By: #### L 3410.9999, L505.5000 #### [facility] [address] [place], [address] ECRCL 75.76 ml/min Normal 50-250 [facility] Comment on above: Performed By: #### L 3410.9999, L505.5000 #### [facility] [address] [place], [address] GAP 17 High 5-15 [facility] Comment on above: Performed By: #### L 3410.9999, L505.5000 #### [facility] [address] [place], [address] GFR/1.73 sq M.predicted among non-blacks MDRD (S/P/Bld) [Vol rate/Area] 90 mL/min/{1.73_m2} Normal >60 [facility] Comment on above: Result Comment: mL/m in/1.73m2 CKD-EPI Creatinine Equation (2020) Performed By: #### L 3410.9999, L505.5000 #### [facility] [address] [place], [address] Glucose [Mass/Vol] 208 mg/dL High 70-99 [facility] Comment on above: Performed By: #### L 3410.9999, L505.5000 #### [facility] [address] [place], [address] Potassium [Moles/Vol] 4.3 mmol/L Normal 3.3-5.1 [facility] Comment on above: Performed By: #### L 3410.9999, L505.5000 #### [facility] [address] [place], [address] Sodium [Moles/Vol] 137 mmol/L Normal 133-145 [facility] Comment on above: Performed By: #### L 3410.9999, L505.5000 #### [facility] [address] [place], [address] Urea nitrogen [Mass/Vol] 21 mg/dL High 4-19 [facility] Comment on above: Performed By: #### L 3410.9999, L505.5000 #### [facility] [address] [place], [address] Basophil percentageOrdered B y: Pop Shah on 03-05-2025 Basophils/100 WBC (Bld) 0.8 % 0-1 [facility] CBC W/Diff, Automatedon 07-0 5-2025 Absolute Lymph 1.38 X10 3/uL Normal 0.83-4.51 [facility] Comment on above: Performed By: #### L 3410.9999, L505.5000 #### [facility] [address] [place], [address] Absolute Neut 4.0 X10 3/uL Normal 2.0-7.7 [facility] Comment on above: Performed By: #### L 3410.9999, L505.5000 #### [facility] [address] [place], [address] Basophils/100 WBC (Bld) 0.8 % Normal 0-1 [facility] Comment on above: Performed By: #### L 3410.9999, L505.5000 #### [facility] [address] [place], [address] Eosinophils/100 WBC (Bld) 6.5 % High 0-5 [facility] Comment on above: Performed By: #### L 3410.9999, L505.5000 #### [facility] [address] [place], [address] Erythrocyte distribution width (RBC) [Ratio] 12.7 % Normal 11.6-14.6 [facility] Comment on above: Performed By: #### L 3410.9999, L505.5000 #### [facility] [address] [place], [address] Hematocrit (Bld) [Volume fraction] 39.2 % Low 40-54 [facility] Comment on above: Performed By: #### L 3410.9999, L505.5000 #### [facility] [address] [place], [address] Hemoglobin (Bld) [Mass/Vol] 13.5 g/dL Normal 13.0-16. 5 [facility] Comment on above: Performed By: #### L 3410.9999, L505.5000 #### [facility] [address] [place], [address] IG% 0.500 Normal 0.0-0.9 [facility] Comment on above: Result Comment: IG% - Immature Granulocytes (promyelocytes, myelocytes and metamyelocytes) > 1% indicates that a LEFT SHIFT is Present. Performed By: #### L 3410.9999, L505.5000 #### [facility] [address] [place], [address] Lymphocytes/100 WBC (Bld) 21.2 % Normal 19-41 [facility] Comment on above: Performed By: #### L 3410.9999, L505.5000 #### [facility] [address] [place], [address] MCH (RBC) [Entitic mass] 30.4 pg Normal 27.0-32.0 [facility] Comment on above: Performed By: #### L 3410.9999, L505.5000 #### [facility] [address] [place], [address] MCHC (RBC) [Mass/Vol] 34.4 g/dL Normal 32-36 [facility] Comment on above: Performed By: #### L 3410.9999, L505.5000 #### [facility] [address] [place], [address] MCV (RBC) [Entitic vol] 88.3 fL Normal 80-94 [facility] Comment on above: Performed By: #### L 3410.9999, L505.5000 #### [facility] [address] [place], [address] Monocytes/100 WBC (Bld) 9.2 % Normal 0-10 [facility] Comment on above: Performed By: #### L 3410.9999, L505.5000 #### [facility] [address] [place], [address] Neutrophils/100 WBC (Bld) 61.8 % Normal 47-70 [facility] Comment on above: Performed By: #### L 3410.9999, L505.5000 #### [facility] [address] [place], [address] Nucleated RBC (Bld) [#/Vol] 0 10*3/uL Normal 0-5 [facility] Comment on above: Performed By: #### L 3410.9999, L505.5000 #### [facility] [address] [place], [address] Platelet mean volume (Bld) [Entitic vol] 9.9 fL Normal 6.2-12.0 [facility] Comment on above: Performed By: #### L 3410.9999, L505.5000 #### [facility] [address] [place], [address] Platelets (Bld) [#/Vol] 200 10*3/uL Normal 150-450 [facility] Comment on above: Performed By: #### L 3410.9999, L505.5000 #### [facility] [address] [place], [address] RBC (Bld) [#/Vol] 4.44 10*6/uL Low 4.6-6.2 [facility] Comment on above: Performed By: #### L 3410.9999, L505.5000 #### [facility] [address] [place], [address] RDW SD 40.7 fl Normal 35.1-43.9 [facility] Comment on above: Performed By: #### L 3410.9999, L505.5000 #### [facility] [address] [place], [address] WBC (Bld) [#/Vol] 6.5 10*3/uL Normal 4.4-11.0 [facility] Comment on above: Performed By: #### L 3410.9999, L505.5000 #### [facility] [address] [place], [address] Carbon dioxide, total [Moles /volume] in Central venous bloodOrdered By: Pop Shah on 03-05-2025 CO2 [Moles/Vol] 19.9 mmol/L Low 21.0-32.0 [facility] Chest 1 View (Portable)on Chest 1 View (Portable) [facility] Imaging Services [address] [place] [address] Chest 1 View (Portable) MR#: [id number] Acct: [id number] Name: MICHAEL BATES Jr. Rep #: [id number] : 1955 M 70 From: Matt Mendenhall MD PCP: Dr. Nadir Grady MD Status: REG ER Study: Chest 1 View (Portable) Date of Exam: 03/05/25 Exam# [id number] Ordering Dr: Pop Shah MD EXAM: XR Chest, 1 View CLINICAL INDICATION: CHEST PAIN TECHNIQUE: Frontal view of the chest. COMPARISON: No relevant prior studies available. FINDINGS: LUNGS AND PLEURAL SPACES: Unremarkable. No consolidation. No pneumothorax. HEART: Unremarkable. No cardiomegaly. MEDIASTINUM: Unremarkable. Normal mediastinal contour. BONES/JOINTS: Unremarkable. No acute fracture. RAD/Chest 1 View (Portable) IMPRESSION: No acute cardiopulmonary process. Reading Location: [facility]-HOME CC: Dr. Pop Shah MD; Dr. 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 Rep #: [id number] : 1955 70 From: Pop Shah MD PCP: Dr. Nadir Grady MD Status:DEP ER Location: ED HPI History of Present Illness Chief Complaint: Chest Pain Informant: patient Narrative Narrative: 70-year-old male presenting with chest pressure going down his left arm. He states he has 12 stents. His last 1 was about 6 months ago, and ever since he has been having the substernal nonpleuritic chest pressure with a light exertion almost every other day. He states the difference today is upon waking up, he is had the discomfort going down his left arm which is new. That has been there for maybe 4 or 5 hours now. He also states that 2 or 3 days ago, he was outside gardening, and he had an episode of the pressure and then had a syncopal episode. No prodromal dyspnea or palpitations just lightheadedness and the chest pressure. He has been compliant with his medications. [facility] Medical History Essential (primary) hypertension Hyperlipidemia Stroke/cerebrovascular accident Hypertension History of CAD (coronary artery disease) Hx of diabetes insipidus Tremor of both hands COVID-19 (06/2021) Bilateral carotid artery stenosis Syncope (10/2021) Atherosclerotic heart disease of [place] coronary artery without angina pectoris (10/10/23) Type 2 diabetes mellitus Sciatica DDD (degenerative disc disease) Elevated LFTs BPH (benign prostatic hyperplasia) Home Medications ???Medication ???Instructions ???Recorded ???Last Taken ???Type aspirin 81 mg tablet,delayed 81 mg PO DAILY@0800 heart health 0 09/13/13 02/11/22 History release omega 6-viq-egn-fish oil 1,000 mg 1,000 mg PO QDAY supplement 01/0612/29/21 History (120 mg-180 mg) capsule (Fish Oil) ferrous sulfate 325 mg (65 mg 325 mg PO BID supplement 06/28/22 Unknown History iron) tablet zinc acetate 50 mg (zinc) capsule 50 mg PO DAILY supplement 4 Unknown History (Galzin) nitroglycerin 0.4 mg sublingual 0.4 mg sublingual Q5M PRN chest Unknown Rx tablet pain #30 tabs omeprazole 40 mg capsule,delayed 40 mg PO DAILY #90 caps 04/19/24 U nknown Rx release atorvastatin 80 mg tablet 80 mg PO DAILY for cholesterol #90 07/26/24 Unknown Rx TABLETS empagliflozin 10 mg tablet 10 mg PO QAM 07/28/24 Unknown Hist ory (Jardiance) ticagrelor 90 mg tablet (Brilinta) 90 mg PO BID anti platelet #60 t abs 11/15/24 Unknown Rx metformin 500 mg tablet 500 mg PO BID 12/08/24 Unknown His tory amlodipine 10 mg tablet 10 mg PO DAILY #90 TABLETS 5 Unknown Rx ranolazine 1,000 mg 1,000 mg PO BID heart #60 tabs Unknown Rx tablet,extended release,12 hr Super Beets PO 02/22/25 Unknown History clopidogrel 75 mg tablet 75 mg PO QDAY 02/22/25 Unknown His tory Allergy/AdvReac Type Severity Reaction Status Date / Time fludrocortisone (From Allergy Severe ANGIOEDEMA Verified 03/05/25 11:11 Florinef) isosorbide AdvReac Severe Near Verified 03/05/25 11:11 syncope, low bp, headaches losartan AdvReac Severe Angioedema Verified 03/05/25 11:11 iodine AdvReac unknown Verified 03/05/25 11:11 perfume AdvReac Other Verified 03/05/25 11:11 Family History Sister CAD (coronary artery disease) CVA (cerebral vascular accident) Diabetes Myocardial infarction Hx of CABG Mother Cancer Lung CA Surgical History History of loop recorder (12/13/21) History of cataract surgery History of left heart catheterization (10/10/23) History of hand surgery History of coronary artery stent placement (08/16/24) Hx of appendectomy Social History Smoking Status: Never smoker alcohol intake: never substance use type: does not use caffeine: No what type of physical activity do you participate in: none seatbelt use: always do you feel safe at home: Yes ROS ROS ED Constitutional Constitutional ED: Denies chills or fever(s) Eyes Eyes: Denies change in vision or diplopia ENT ENT ED: Denies rhinorrhea or sore throat Cardiovascular Cardiovascular: Reports as per HPI, chest pain, radiating jaw, neck or arm pain and syncope; Denies palpitations Respiratory/Chest Respiratory/Chest: Denies cough or dyspnea Gastrointestinal Gastrointestinal: Denies abdominal pain, diarrhea, nausea or vomiting Genitourinary Genitourinary ED: Denies dysuria or hematuria Musculoskeletal Musculoskeletal: Denies back pain or neck pain Inte (more content not included)... Normal [facility] Eosinophil percentageOrdered By: Pop Shah on 03-05-2025 Eosinophils/100 WBC (Bld) 6.5 % High 0-5 [facility] Erythrocyte distribution wid th ratioOrdered By: Pop Shah on 03-05-2025 Erythrocyte distribution width (RBC) [Ratio] 12.7 % 11.6-14.6 [facility] Erythrocyte distribution wid th standard deviationOrdered By: Pop Shah on 03-05-2025 Erythrocyte distribution width (RBC) [Ratio] 40.7 fl 35.1-43.9 [facility] Glomerular filtration rate ( GFR) estimation/1.73 sq m using serum, plasma, or whole bOrdered By: Pop Shah on 03-05-2025 GFR/1.73 sq M.predicted among non-blacks MDRD (S/P/Bld) [Vol rate/Area] 90 mL/min/{1.73_m2} >60 [facility] Comment on above: mL/min/1.73m2 CKD-EP I Creatinine Equation (2020) Hematocrit Auto (Bld) [Volum e fraction]Ordered By: Pop Shah on 03-05-2025 Hematocrit (Bld) [Volume fraction] 39.2 % Low 40-54 [facility] Hemoglobin measurementOrdere d By: Pop Shah on 03-05-2025 Hemoglobin (Bld) [Mass/Vol] 13.5 g/dL 13.0-16. 5 [facility] Immature granulocytes/100 WB C Auto (Bld)Ordered By: Pop Shah on 03-05-2025 Immature granulocytes/100 WBC (Bld) 0.500 % 0.0-0.9 [facility] Comment on above: IG% - Immature Granu locytes (promyelocytes, myelocytes and metamyelocytes) > 1% indicates that a LEFT SHIFT is Present. L499.0042on 03-05-2025 Trop T High Sen 11 ng/L Normal <=22 [facility] Comment on above: Performed By: #### L 499.0042 #### [facility] [address] [place], [address] Performed By: #### L 3410.9999, L505.5000 #### [facility] [address] [place], [address] L499.0043on 03-05-2025 Trop T High Sen Normal <=22 [facility] Comment on above: Result Comment: Canc elled via OM: Order cancelled - Patient discharged Performed By: #### L 499.0043 #### [facility] [address] [place], [address] MCV (mean corpuscular volume ) determinationOrdered By: Pop Shah on 03-05-2025 MCV (RBC) [Entitic vol] 88.3 fL 80-94 [facility] Mean corpuscular hemoglobin (MCH) determinationOrdered By: Pop Shah on 03-05-2025 MCH (RBC) [Entitic mass] 30.4 pg 27.0-32.0 [facility] Mean corpuscular hemoglobin concentration (MCHC) determinationOrdered By: Pop Shah on 03-05-2025 MCHC (RBC) [Mass/Vol] 34.4 g/dL 32-36 [facility] Mean platelet volume determi nationOrdered By: Pop Shah on 03-05-2025 Platelet mean volume (Bld) [Entitic vol] 9.9 fL 6.2-12.0 [facility] Monocyte percentageOrdered B y: Pop Shah on 03-05-2025 Monocytes/100 WBC (Bld) 9.2 % 0-10 [facility] Neutrophil percentageOrdered By: Pop Shah on 03-05-2025 Neutrophils/100 WBC (Bld) 61.8 % 47-70 [facility] Nucleated red blood cell per centageOrdered By: Pop Shah on 03-05-2025 Nucleated RBC/100 WBC (Bld) [Ratio] 0 % 0-5 [facility] Platelet countOrdered By: Gentry Shah on 03-05-2025 Platelets (Bld) [#/Vol] 200 10*3/uL 150-450 [facility] Potassium measurement (mass/ volume)Ordered By: Pop Shah on 03-05-2025 Potassium (Unsp spec) [Mass/Vol] 4.3 mmol/L 3.3-5.1 [facility] RBC Auto (Bld) [#/Vol]Ordere d By: Pop Shah on 03-05-2025 RBC (Bld) [#/Vol] 4.44 10*6/uL Low 4.6-6.2 [facility] Serum creatinine measurement (mass/volume)Ordered By: Pop Shah on 03-05-2025 Creatinine [Mass/Vol] 0.91 mg/dL 0.70-1.20 [facility] Serum glucose measurement (m ass/volume)Ordered By: Pop Shah on 03-05-2025 Glucose [Mass/Vol] 208 mg/dL High 70-99 [facility] Serum or plasma calcium jaziel urement (mass/volume)Ordered By: Pop Shah on 03-05-2025 Calcium [Mass/Vol] 9.1 mg/dL 7.6-11.0 [facility] Serum or plasma urea nitroge n measurement (mass/volume)Ordered By: Pop Shah on 03-05-2025 Urea nitrogen [Mass/Vol] 21 mg/dL High 4-19 [facility] Sodium levelOrdered By: Justin Shah on 03-05-2025 Sodium [Moles/Vol] 137 mmol/L 133-145 [facility] Troponin T.cardiac [Mass/vol ume] in Serum or Plasma by High sensitivity methodOrdered By: Pop Shah on 03-05-2025 Troponin T.cardiac High sensitivity method [Mass/Vol] 11 ng/L <22 [facility] Troponin T.cardiac High sensitivity method [Mass/Vol] 11 ng/L <22 [facility] White blood cell (WBC) count Ordered By: Pop Shah on 03-05-2025 WBC (Bld) [#/Vol] 6.5 10*3/uL 4.4-11.0 [facility] 03-03-2025 CNPN Telephone (SLEWST) MICHAEL BATES ([id number]) 1955 M Date Time Provider Department 03/03/25 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 Paula Donaldson LPN Allergies As of Date: 03/03/2025 Noted Allergy Reaction FLORINEF (FLUDROCORTISONE) 04/25/2022 18 - Angioedema LOSARTAN 10/24/2023 18 - Angioedema PERFUMES 01/20/2012 14 - Other: See Comments Comments: sneezing RANEXA (RANOLAZINE) 09/06/2024 14 - Other: See Comments Comments: Headache, nausea and nose bleed Date Reviewed: 01/18/2025 Reviewed by: Luis E Agudelo LPN - Fully Assessed Prescriptions as of 03/03/2025 - metFORMIN ER (GLUCOPHAGE XR) 500 mg 24 hr tablet Take 2 tablets by mouth two times a day. - ferrous sulfate 325 mg (65 mg iron) tablet Take 1 tablet by mouth two times a day with meals. - empagliflozin (JARDIANCE) 10 mg tablet Take 1 tablet by mouth once daily. Take 1 tablet once daily in the morning - CPAP/BIPAP/OTHER APAP 5-20 cmH2O - isosorbide mononitrate ER (IMDUR) 30 mg 24 hr tablet Take 1 tablet by mouth once daily. Per Cardio: [facility] - Zinc Gluconate 50 mg tablet Take 50 mg by mouth once daily. - amLODIPine (NORVASC) 10 mg tablet Take 1 tablet by mouth once daily. Per [facility] - atorvastatin (LIPITOR) 80 mg tablet Take 1 tablet by mouth once daily. Managed by cardiology, Dr. Kern - omeprazole (PRILOSEC) 40 mg capsule Take 1 capsule by mouth once daily. Per [facility] - ticagrelor (BRILINTA) 90 mg tablet Take 1 tablet by mouth two times a day. Per [facility] - docosahexaenoic acid/epa (FISH OIL ORAL) Take by mouth as directed. - Blood-Glucose Meter monitoring kit Glucose Meter of Choice - Kit - Dx: Type 2 DM - Uncontrolled - Lancets lancets Test blood sugar(s) 2 times daily. Dx: Type 2 DM - Uncontrolled E11.65 Insulin: No - blood sugar diagnostic (BLOOD GLUCOSE TEST) test strip Test blood sugar(s) 2 times daily. Dx: Type 2 DM - Uncontrolled E11.65 Insulin: No - nitroglycerin sublingual (NITROSTAT) 0.4 mg SL tablet Dissolve 1 tablet under the tongue every 5 minutes as needed for chest pain. - aspirin, enteric coated (ECOTRIN LOW STRENGTH) 81 mg EC tablet Take 1 tablet by mouth once daily. - Blood Pressure Monitor kit 1 Each once daily. 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] 12/04/2007 Unspecified pruritic disorder [L29.9] 03/02/2009 04/12/2020 Lumbago [M54.50] 02/09/2010 Sciatica [M54.30] 02/09/2010 Neck sprain and strain [S13.9XXA] 07/30/2010 08/30/2010 Other physical therapy [CDK4712] 08/16/2010 08/30/2010 Essential hypertension, benign [I10] 01/17/2012 DDD (degenerative disc disease), cervical [M50.*01/20/2012 Cervical spondylosis [M47.812] 01/20/2012 Chronic sinusitis [J32.9] Hyperlipidemia [E78.5] 08/04/2015 Mixed hyperlipidemia [E78.2] 08/04/2015 Lumbar radiculopathy [M54.16] Chronic post-traumatic headache [G44.329] 08/04/2015 Bilateral occipital neuralgia [M54.81] 08/04/2015 Seborrheic dermatitis [L21.9] 08/04/2015 Elevated LFTs [R79.89] 08/05/2015 Carotid stenosis, asymptomatic, bilateral [I65.*08/09/2015 Neck pain, chronic [M54.2, G89.29] 10/16/2015 Cervicogenic headache [G44.86] 10/16/2015 DDD (degenerative disc disease), lumbar [M51.36*06/30/2016 Radicular pain of right lower extremity [M54.10]07/09/2016 Acute right-sided low back pain with right-side*07/09/2016 Well adult exam [Z00.00] 10/03/2016 04/12/2020 Benign non-nodular prostatic hyperplasia withou*10/03/2016 Disorder of prostate [N42.9] 10/03/2016 Type 2 diabetes mellitus with diabetic neuropat*10/07/2016 Bilateral chronic knee pain [M25.561, M25.562, *10/10/2016 Coronary atherosclerosis due to lipid rich plaq*01/20/2017 S/P drug eluting coronary stent placement [Z95.*01/20/2017 Diabetic eye exam (HCC) [Z01.00, E11.9] 03/19/2017 Leg pain, bilateral [M79.604, M79.605] 06/04/2017 Medicare annual wellness visit, subsequent [Z00*06/12/2018 GERD without esophagitis [K21.9] 06/12/2018 Neuropathy (HCC) [G62.9] 06/12/2018 Primary insomnia [F51.01] 03/02/2019 Abnormal dreams [F51.8] 03/02/2019 Medication management [Z79.899] 03/02/2019 Illiteracy [Z55.0] 10/09/2020 Anemia of chronic disease [D63.8] 02/14/2021 History of COVID-19 [Z86.16] 06/18/2021 Uncontrolled type 2 diabetes mellitus with hype*06/26/2022 Blood sugar in (more content not included)... Normal [facility] Cardiology Visit Reporton Cardiology Visit Report [facility] [address] [place] [address] OFFICE VISIT Date of Service: 02/22/25 MR#: [id number] Acct: [id number] Name: MICHAEL BATES Jr. Rep #: [id number] : 1955 Provider: Dr. Jd Kern MD Age/Sex: 70/M Location: [facility] [place] Status: Signed HPI HPI History of Present Illness Details: Michael Bates is a 70-year-old old man with a history of coronary artery disease who presents for a follow-up evaluation. He does have a history of coronary artery disease with stenting to his mid LAD and ramus in 2016, ostial left circumflex in May 2020 and Jul 2021, proximal circumflex in October 2020, and mid RCA in April 2021. He also has a history of hypertension, hyperlipidemia, syncope and carotid artery stenosis. As you remember he had been having a lot of syncopal episodes and was referred to neurology and eventually had a loop recorder placed for syncope evaluation which thus far has not demonstrated any significant abnormalities. Due to his recurrent syncope he had been placed on fludrocortisone but said that he had an allergic reaction to it and so was put on midodrine. He continues to complain of chest discomfort and in December 2021 underwent a stress test which was negative for ischemia and subsequently in January of the same year underwent a cardiac catheterization which demonstrated diffuse coronary disease with previously placed stents noted in the LAD diagonal and ramus, circumflex artery and right coronary artery were all noted to be patent. Diffuse distal disease was noted no high-grade stenosis was present. He had been started on Ranexa which was discontinued due to nausea. He had a stress test in June 2023 that was negative for ischemia. He was admitted to [facility] on October 09, 2023 with chest discomfort. EKG had demonstrated ST depressions in V5 and V6. Troponins were negative. He did have an echocardiogram which demonstrated an ejection fraction of 60%.He did undergo a diagnostic heart catheterization which demonstrated 50% proximal LAD stenosis, 50 to 60% mid LAD stenosis, 70% proximal OM2 stenosis unchanged from previous study, 95% calcified proximal RCA and 90% calcified mid RCA and 70% 6 distal RCA. He underwent successful shockwave lithotripsy and stenting of his distal RCA. Patient was in the emergency room on October 15 for chest discomfort. Workup was negative. In July 2024 he presented again with chest discomfort with exertion for which he required cardiac catheterization in August. He demonstrated preserved ejection fraction left anterior descending artery was previously stented and was noted to be patent the nondominant circumflex artery was previously stented noted to be patent with a second obtuse marginal branch with a 70% stenosis in the right coronary artery was dominant previously stented in the proximal mid and distal segments with a proximal in-stent stenosis of 80% in the posterior descending artery to 40 to 50%. He underwent successful RODDY stenting to in-stent stenosis of the right coronary artery. He did well for a number of months he underwent carotid duplex scan in November 2024 demonstrating moderate bilateral stenosis and more recently he says that he has been having chest discomfort again with exertion he has not had any at rest he has had to take some nitroglycerin which has subsided. He has had no dizziness or diaphoresis near syncope or syncope. His physical exam today is unremarkable his EKG demonstrates normal sinus rhythm with a rate of 70 bpm and no acute changes. 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 Is patient in pain?: No Allergies fludrocortisone (From Florinef) Allergy (Severe, Verified 02/22/25 11:22) ANGIOEDEMA losartan Adverse Reaction (Severe, Verified 02/22/25 11:22) Angioedema iodine Adverse Reaction (Verified 02/22/25 11:22) unknown perfume Adverse Reaction (Verified 02/22/25 11:22) Other Medications ???Medication ???Instructions ???Recorded ???Confirmed ???Type aspirin 81 mg tablet,delayed 81 mg PO DAILY@0800 heart health 0 09/13/13 02/22/25 History release omega 6-rye-cdy-fish oil 1,000 mg 1,000 mg PO QDAY supplement 01/0602/22/25 History (120 mg-180 mg) capsule (Fish Oil) ferrous sulfate 325 mg (65 mg 325 mg PO BID supplement 06/28/22 02/22/25 History iron) tablet zinc acetate 50 mg (zinc) capsule 50 mg PO DAILY supplement 4 02/22/25 History (Galzin) nitroglycerin 0.4 mg sublingual 0.4 mg sublingual Q5M PRN chest (more content not included)... Normal [facility] ALBUMIN/CREATININE RATIO, UR INEon 01-18-2025 Albumin DL <= 20 mg/L (U) [Mass/Vol] mg/dL Normal [facility] Comment on above: Order Comment: Speci men Type: URINE SPECIMENOrdering Facility: [facility] Address: [address] [place] [address] Performed By: #### U ACR ####[facility] LABCLIA [id number] [place] [address] [place] Albumin/Creatinine (U) [Mass ratio] Normal [facility] Comment on above: Order Comment: Speci men Type: URINE SPECIMENOrdering Facility: [facility] Address: [address] [place] [address] Result Comment: Not calculated Adult Male and Female Nephrotic Criteria: <30 mg/g is considered normal to mildly increased 30-300 mg/g is considered moderately increased >300 mg/g is considered severely increased KDIGO. (2013). KDIGO 2012 Clinical Practice Guideline for the Evaluation and Management of Chronic Kidney Disease. Official Journal of the International Society of Nephrology, 3(1), 1-150. Performed By: #### U ACR ####[facility] LABCLIA [id number] [place] [address] [place] Creatinine (U) [Mass/Vol] 33.2 mg/dL Normal 20.0-300.0 [facility] Comment on above: Order Comment: Speci men Type: URINE SPECIMENOrdering Facility: [facility] Address: [address] [place] [address] Performed By: #### U ACR ####[facility] LABIA [id number] [place] [address] [place] CBC W Auto Differential pane l (Bld)on 01-18-2025 Basophils (Bld) [#/Vol] 0.07 10*3/uL Normal <0.11 [facility] Comment on above: Order Comment: Speci men Type: BLOOD SPECIMENOrdering Facility: [facility] Address: [address] [place] [address] Performed By: #### 5 7021-8 ####[facility] LABCLIA [id number] [place] [address] [place] Basophils/100 WBC (Bld) 1.1 % Normal C [facility] Comment on above: Order Comment: Speci men Type: BLOOD SPECIMENOrdering Facility: [facility] Address: [address] [place] [address] Performed By: #### 5 7021-8 ####[facility] LABIA [id number] [address] [place] Differential cell count method Nom (Bld) Auto Normal [facility] Comment on above: Order Comment: Speci men Type: BLOOD SPECIMENOrdering Facility: [facility] Address: [address] [place] [address] Performed By: #### 5 7021-8 ####[facility] LABCLIA [id number] [place] [address] [place] Eosinophils (Bld) [#/Vol] 0.30 10*3/uL Normal <0.46 [facility] Comment on above: Order Comment: Speci men Type: BLOOD SPECIMENOrdering Facility: [facility] Address: [address] [place] [address] Performed By: #### 5 7021-8 ####[facility] LABIA [id number] [place] [address] [place] Eosinophils/100 WBC (Bld) 4.9 % Normal [facility] Comment on above: Order Comment: Speci men Type: BLOOD SPECIMENOrdering Facility: [facility] Address: [address] [place] [address] Performed By: #### 5 7021-8 ####[facility] LABIA [id number] [place] [address] [place] Erythrocyte distribution width (RBC) [Ratio] 12.7 % Normal 11.5-15.0 [facility] Comment on above: Order Comment: Speci men Type: BLOOD SPECIMENOrdering Facility: [facility] Address: [address] [place] [address] Performed By: #### 5 7021-8 ####[facility] LABIA [id number] [place] [address] [place] Hematocrit (Bld) [Volume fraction] 42.3 % Normal 39.0-51.0 [facility] Comment on above: Order Comment: Speci men Type: BLOOD SPECIMENOrdering Facility: [facility] Address: [address] [place] [address] Performed By: #### 5 7021-8 ####[facility] LABIA [id number] [place] [id number] [place] Hemoglobin (Bld) [Mass/Vol] 14.0 g/dL Normal 13.0-17. 0 [facility] Comment on above: Order Comment: Speci men Type: BLOOD SPECIMENOrdering Facility: [facility] Address: [address] [place] [address] Performed By: #### 5 7021-8 ####[facility] LABCLIA [id number] [facility] [id number] [address] [place] Immature granulocytes (Bld) [#/Vol] 10*3/uL Normal <0.10 [facility] Comment on above: Order Comment: Speci men Type: BLOOD SPECIMENOrdering Facility: [facility] Address: [address] [place] [address] Performed By: #### 5 7021-8 ####[facility] LABCLIA [id number] [facility] [address], [facility] [place] Immature granulocytes/100 WBC (Bld) 0.3 % Normal [facility] Comment on above: Order Comment: Speci men Type: BLOOD SPECIMENOrdering Facility: [facility] Address: [address] [place] [address] Performed By: #### 5 7021-8 ####[facility] LABCLIA [id number] [address], [place] [address] [place] Lymphocytes (Bld) [#/Vol] 1.42 10*3/uL Normal 1.00-4.0 0 [facility] Comment on above: Order Comment: Speci men Type: BLOOD SPECIMENOrdering Facility: [facility] Address: [address] [place] [address] Performed By: #### 5 7021-8 ####[facility] LABCLIA [id number] [address], [place] [address] [place] Lymphocytes/100 WBC (Bld) 23.1 % Normal [facility] Comment on above: Order Comment: Speci men Type: BLOOD SPECIMENOrdering Facility: [facility] Address: [address] [place] [address] Performed By: #### 5 7021-8 ####[facility] LABCLIA [id number] [address], [facility] [place] MCH (RBC) [Entitic mass] 29.3 pg Normal 26.0-34.0 [facility] Comment on above: Order Comment: Speci men Type: BLOOD SPECIMENOrdering Facility: [facility] Address: [address] [place] [address] Performed By: #### 5 7021-8 ####[facility] LABCLIA [id number] [address] [address] [place] MCHC (RBC) [Mass/Vol] 33.1 g/dL Normal 30.5-36.0 [facility] Comment on above: Order Comment: Speci men Type: BLOOD SPECIMENOrdering Facility: [facility] Address: [address] [place] [address] Performed By: #### 5 7021-8 ####[facility] LABIA [id number] [place] [address] [place] MCV (RBC) [Entitic vol] 88.5 fL Normal 80.0-100.0 C [facility] Comment on above: Order Comment: Speci men Type: BLOOD SPECIMENOrdering Facility: [facility] Address: [address] [place] [address] Performed By: #### 5 7021-8 ####[facility] LABIA [id number] [place] [address] [place] Monocytes (Bld) [#/Vol] 0.52 10*3/uL Normal <0.87 [facility] Comment on above: Order Comment: Speci men Type: BLOOD SPECIMENOrdering Facility: [facility] Address: [address] [place] [address] Performed By: #### 5 7021-8 ####[facility] LABIA [id number] [place] [address] [place] Monocytes/100 WBC (Bld) 8.4 % Normal C [facility] Comment on above: Order Comment: Speci men Type: BLOOD SPECIMENOrdering Facility: [facility] Address: [address] [place] [address] Performed By: #### 5 7021-8 ####[facility] LABCLIA [id number] [facility] [address], [place] [address] [place] Neutrophils (Bld) [#/Vol] 3.83 10*3/uL Normal 1.45-7.5 0 [facility] Comment on above: Order Comment: Speci men Type: BLOOD SPECIMENOrdering Facility: [facility] Address: [address] [place] [address] Performed By: #### 5 7021-8 ####[facility] LABCLIA [id number] [address], [place] [address] [place] Neutrophils/100 WBC (Bld) 62.2 % Normal [facility] Comment on above: Order Comment: Speci men Type: BLOOD SPECIMENOrdering Facility: [facility] Address: [address] [place] [address] Performed By: #### 5 7021-8 ####[facility] LABCLIA [id number] [place] [address] [place] Nucleated RBC (Bld) [#/Vol] 10*3/uL Normal <0.01 [facility] Comment on above: Order Comment: Speci men Type: BLOOD SPECIMENOrdering Facility: [facility] Address: [address] [place] [address] Performed By: #### 5 7021-8 ####[facility] LABCLIA [id number] [facility] [place] [address] [place] Nucleated RBC/100 WBC (Bld) [Ratio] 0.0 /100 WBC Normal [facility] Comment on above: Order Comment: Speci men Type: BLOOD SPECIMENOrdering Facility: [facility] Address: [address] [place] [address] Performed By: #### 5 7021-8 ####[facility] LABCLIA [id number] [address], [facility] [place] Platelet mean volume (Bld) [Entitic vol] 9.9 fL Normal 9.0-12.7 [facility] Comment on above: Order Comment: Speci men Type: BLOOD SPECIMENOrdering Facility: [facility] Address: [address] [place] [address] Performed By: #### 5 7021-8 ####[facility] LABIA [id number] [place] [address] [place] Platelets (Bld) [#/Vol] 261 10*3/uL Normal 150-400 [facility] Comment on above: Order Comment: Speci men Type: BLOOD SPECIMENOrdering Facility: [facility] Address: [address] [place] [address] Performed By: #### 5 7021-8 ####[facility] LABIA [id number] [place] [address] [place] RBC (Bld) [#/Vol] 4.78 10*6/uL Normal 4.20-6.00 [facility] Comment on above: Order Comment: Speci men Type: BLOOD SPECIMENOrdering Facility: [facility] Address: [address] [place] [address] Performed By: #### 5 7021-8 ####[facility] LABIA [id number] [place] [address] [place] WBC (Bld) [#/Vol] 6.16 10*3/uL Normal 3.70-11.00 [facility] Comment on above: Order Comment: Speci men Type: BLOOD SPECIMENOrdering Facility: [facility] Address: [address] [place] [address] Performed By: #### 5 7021-8 ####[facility] LABIA [id number] [place] [id number] [place] CNOVon 01-18-2025 CNOV Office Visit (FAMPWS ) MICHAEL BATES ([id number]) 1955 M Date Time Provider Department 01/18/25 8:40 AM MARTHA BOSTON During your visit today, we recorded the following information about you: Temperature Pulse Respiration Blood pressure 97.5 degrees 67/minute 16/minute 136/76 Weight 77.6 kg Martha Boston PA-C 01/18/2025 10:40 AM Signed Chief Complaint Patient presents with: 6 Month Exam HPI Michael Bates is a 69 year old male who presents here today for 6 month visit. Patient with hx of DM2, hyperlipidemia, HTN, GERD, Adjustment disorder, Carotid stenosis, BPH, Chronic neck pain, and those as below. Patient denies any concerns today. Past medical history, appointments, medications, [...] 08/04/[address] Duque Chronic sinusitis Claudication 06/04/2017 PVR's normal. Coronary atherosclerosis due to lipid rich plaque 01/20/[address] Kern. s/p RODDY to Ramus and RODDY to LAD placed 01/20/2017. COVID-19 virus infection 06/18/202106/2021 DDD (degenerative disc disease), cervical 01/20/2012 DDD (degenerative disc disease), lumbar 06/30/2016 Multi level, worse L2-L3 Diabetes (HCC) Diabetic eye exam ([facility]) 03/19/2017 Last done: 10/01/2018 Elevated [...] ulnar artery (HCC) 03/06/2018 Ulnar artery aneurysm Right, s/p repair Unspecified pruritic disorder 03/02/2009 Previous Surgical History PAST SURGICAL HISTORY Procedure Laterality Date 2D ECHO (EXEP) 01/16/2017 EF=60%, 1+ MD and TI CATARACT EXTRACTION HX Left 10/2019 [...] EGD W/O BRSH SPEC VARICIES INJ 10/14/2022 IMMUNOCHEMICAL FECAL OCCULT BLOOD TEST 04/19/2019 Negative PAST SURGICAL HISTORY OF 1972 appendix PAST SURGICAL HISTORY OF right foot -- tendon surgery PAST SURGICAL HISTORY OF 2000 +/- Right hand -- trauma, aneurysm repair/CTS [...] Allergies ALLERGIES Allergen Reactions Florinef [Fludrocor* Angioedema Losartan Angioedema Perfumes Other: See Comments sneezing Ranexa [Ranolazine] Other: See Comments Headache, nausea and nose bleed Current Medications Current Outpatient Medications on File Prior to Visit Medication Sig empagliflozin (JARDIANCE) 10 mg tablet Take 1 tablet by mouth once daily. Take 1 tablet once daily in the morning CPAP/BIPAP/OTHER APAP 5-20 cmH2O metFORMIN ER (GLUCOPHAGE XR) 500 mg 24 hr table (more content not included)... Normal [facility] Comprehensive metabolic 2000 panelon 01-18-2025 Albumin [Mass/Vol] 5.1 g/dL High 3.9-4.9 [facility] Comment on above: Order Comment: Speci men Type: BLOOD SPECIMENOrdering Facility: [facility] Address: [address] [place] [address] Performed By: #### 2 4323-8, LIPNF ####[facility] LABCLIA [id number] [place] [address] [place] ALP [Catalytic activity/Vol] 132 U/L High 38-113 [facility] Comment on above: Order Comment: Speci men Type: BLOOD SPECIMENOrdering Facility: [facility] Address: [address] [place] [address] Performed By: #### 2 4323-8, LIPNF ####[facility] LABCLIA [id number] [place] [address] [place] ALT [Catalytic activity/Vol] 27 U/L Normal 10-54 [facility] Comment on above: Order Comment: Speci men Type: BLOOD SPECIMENOrdering Facility: [facility] Address: [address] [place] [address] Performed By: #### 2 4323-8, LIPNF ####[facility] LABCLIA [id number] [place] [id number] [place] Anion gap [Moles/Vol] 16 mmol/L High 8-15 [facility] Comment on above: Order Comment: Speci men Type: BLOOD SPECIMENOrdering Facility: [facility] Address: [address] [place] [address] Performed By: #### 2 4323-8, LIPNF ####[facility] LABCLIA [id number] [place] [address] [place] AST [Catalytic activity/Vol] 26 U/L Normal 14-40 [facility] Comment on above: Order Comment: Speci men Type: BLOOD SPECIMENOrdering Facility: [facility] Address: [address] [place] [address] Performed By: #### 2 4323-8, LIPNF ####[facility] LABCLIA [id number] [place] [id number] [place] Bilirubin [Mass/Vol] 0.5 mg/dL Normal 0.2-1.3 [facility] Comment on above: Order Comment: Speci men Type: BLOOD SPECIMENOrdering Facility: [facility] Address: [address] [place] [address] Performed By: #### 2 4323-8, LIPNF ####[facility] LABCLIA [id number] [place] [id number] [place] Calcium [Mass/Vol] 9.8 mg/dL Normal 8.5-10.2 [facility] Comment on above: Order Comment: Speci men Type: BLOOD SPECIMENOrdering Facility: [facility] Address: [address] [place], [place] [address] Performed By: #### 2 4323-8, LIPNF ####[facility] LABCLIA [id number] [place] [id number] [place] Chloride [Moles/Vol] 101 mmol/L Normal 98-107 [facility] Comment on above: Order Comment: Speci men Type: BLOOD SPECIMENOrdering Facility: [facility] Address: [address] [place] [address] Performed By: #### 2 4323-8, LIPNF ####[facility] LABCLIA [id number] [place] [address] [place] CO2 [Moles/Vol] 22 mmol/L Normal 22-30 [facility] Comment on above: Order Comment: Speci men Type: BLOOD SPECIMENOrdering Facility: [facility] Address: [address] [place] [address] Performed By: #### 2 4323-8, LIPNF ####[facility] LABCLIA [id number] [place] [address] [place] Creatinine [Mass/Vol] 0.86 mg/dL Normal 0.73-1.22 [facility] Comment on above: Order Comment: Speci men Type: BLOOD SPECIMENOrdering Facility: [facility] Address: [address] [place] [address] Performed By: #### 2 4323-8, LIPNF ####[facility] LABCLIA [id number] [address] [facility] Creatinine and Glomerular filtration rate.predicted panel (S/P/Bld) 93 mL/min/1.73m??? Normal >=60 [facility] Comment on above: Order Comment: Speci men Type: BLOOD SPECIMENOrdering Facility: [facility] Address: [address] [place] [address] Result Comment: Abril mated Glomerular Filtration Rate (eGFR) is calculated using the 2020 CKD-EPI creatinine equation. This equation utilizes serum creatinine, sex, and age as parameters. The creatinine assay has traceable calibration to isotope dilution-mass spectrometry. Refer to KDIGO guidelines for clinical interpretation. In patients with unstable renal function, e.g. those with acute kidney injury, the eGFR may not accurately reflect actual GFR. Performed By: #### 2 4323-8, LIPNF ####[facility] LABCLIA [id number] [place] [address] [place] Glucose [Mass/Vol] 154 mg/dL High 74-99 [facility] Comment on above: Order Comment: Walter sexton Type: BLOOD SPECIMENOrdering Facility: [facility] Address: [address] [place] [address] Result Comment: The [place] Diabetes Association (ADA) provides guidance for cutoff values for fasting glucose and random glucose. The ADA defines fasting as no caloric intake for at least 8 hours. Fasting plasma glucose results between 100 to 125 mg/dL indicate increased risk for diabetes (prediabetes). Fasting plasma glucose results greater than or equal to 126 mg/dL meet the criteria for diagnosis of diabetes. In the absence of unequivocal hyperglycemia, results should be confirmed by repeat testing. In a patient with classic symptoms of hyperglycemia or hyperglycemic crisis, random plasma glucose results greater than or equal to 200 mg/dL meet the criteria for diagnosis of diabetes. Reference: Standards of Medical Care in Diabetes 2016, [place] Diabetes Association. Diabetes Care. 2016.39(Suppl 1). Performed By: #### 2 4323-8, LIPNF ####[facility] LABCLIA [id number] [place] [address] [place] Potassium [Moles/Vol] 4.6 mmol/L Normal 3.7-5.1 [facility] Comment on above: Order Comment: Walter sexton Type: BLOOD SPECIMENOrdering Facility: [facility] Address: [address] [place] [address] Performed By: #### 2 4323-8, LIPNF ####[facility] LABIA [id number] [place] [address] [place] Protein [Mass/Vol] 8.0 g/dL Normal 6.3-8.0 [facility] Comment on above: Order Comment: Walter sexton Type: BLOOD SPECIMENOrdering Facility: [facility] Address: [address] [place] [address] Performed By: #### 2 4323-8, LIPNF ####[facility] LABIA [id number] [place] [id number] [place] Sodium [Moles/Vol] 139 mmol/L Normal 136-144 [facility] Comment on above: Order Comment: Speci men Type: BLOOD SPECIMENOrdering Facility: [facility] Address: [address] [place] [address] Performed By: #### 2 4323-8, LIPNF ####[facility] LABIA [id number] [place] [address] [place] Urea nitrogen [Mass/Vol] 18 mg/dL Normal 9-24 [facility] Comment on above: Order Comment: Speci men Type: BLOOD SPECIMENOrdering Facility: [facility] Address: [address] [place] [address] Performed By: #### 2 4323-8, LIPNF ####[facility] LABIA [id number] [place] [address] [place] HbA1c (Bld)on 01-18-2025 Average glucose Estimated from glycated hemoglobin (Bld) [Mass/Vol] 171 mg/dL Normal [facility] Comment on above: Order Comment: Speci men Type: BLOOD SPECIMENOrdering Facility: [facility] Address: [address] [place] [address] Result Comment: eAG: (Estimated average glucose) is a calculated value from HgbA1c and is district representative of the average blood glucose level in the last 2-3 month period. Performed By: #### 5 5454-3 ####[facility] [id number] [place] [address] [place] HbA1c (Bld) [Mass fraction] 7.6 % High 4.3-5.6 [facility] Comment on above: Order Comment: Speci men Type: BLOOD SPECIMENOrdering Facility: [facility] Address: [address] [place] [address] Result Comment: [place] Diabetes Association guidelines indicate that patients with HgbA1c in the range 5.7-6.4% are at increased risk for development of diabetes, and intervention by lifestyle modification may be beneficial. HgbA1c greater or equal to 6.5% is considered diagnostic of diabetes. Performed By: #### 5 5454-3 ####[facility] LABCLIA [id number] [address] OF [facility] LIPID PANEL, NONFASTINGon Cholesterol [Mass/Vol] 113 mg/dL Normal <200 [facility] Comment on above: Order Comment: Walter sexton Type: BLOOD SPECIMENOrdering Facility: [facility] Address: [address] [place] [address] Result Comment: <200 mg/dL, Desirable 200-239 mg/dL, Borderline high >239 mg/dL, High Performed By: #### 2 4323-8, LIPNF ####[facility] LABIA [id number] [address], [address] OF [facility] HDL CHOLESTEROL, NF 42 mg/dL Normal >39 [facility] Comment on above: Order Comment: Walter sexton Type: BLOOD SPECIMENOrdering Facility: [facility] Address: [address] [place] [address] Result Comment: 40-5 9 mg/dL, Acceptable >59 mg/dL, High: Negative risk factor for coronary heart disease <40 mg/dL, Low: Positive risk factor for coronary heart disease Performed By: #### 2 4323-8, LIPNF ####[facility] LABIA [id number] [address] [place] LDL CHOLESTEROL CALCULATED, NF 53 mg/dL Normal <100 [facility] Comment on above: Order Comment: Walter sexton Type: BLOOD SPECIMENOrdering Facility: [facility] Address: [address] [place] [address] Result Comment: <100 mg/dL, Optimal 100-129 mg/dL, Near optimal/above optimal 130-159 mg/dL, Borderline high 160-189 mg/dL, High >189 mg/dL, Very high Secondary prevention optimal LDL Cholesterol levels are recommended to be <70 mg/dL LDL cholesterol is calculated using the Devine-NIH equation. Performed By: #### 2 4323-8, LIPNF ####[facility] LABCLIA [id number] [place] [id number] [place] OF [facility] LDL/HDL RATIO, NF 1.26 mg/dL Normal <2.54 [facility] Comment on above: Order Comment: Speci men Type: BLOOD SPECIMENOrdering Facility: [facility] Address: [address] [place] [address] Result Comment: Refe helence: 1. National Cholesterol Education Program ATP III Guideline At-A-Glance Quick Desk Reference: National Heart, Lung, and Blood [place]. National Institutes of Health. 2001: NIH Publication No. 01-3305. 2. An International Atherosclerosis Society position paper: global recommendations for the management of dyslipidemia: executive summary, Atherosclerosis. 2014: 232(2):410-413. Performed By: #### 2 4323-8, LIPNF ####[facility] LABIA [id number] [address] NON HDL CHOL, NF 71 mg/dL Normal <130 [facility] Comment on above: Order Comment: Walter sexton Type: BLOOD SPECIMENOrdering Facility: [facility] Address: [address] [place] [address] Result Comment: <130 mg/dL, Optimal 130-159 mg/dL, Near optimal/above optimal 160-189 mg/dL, Borderline high 190-219 mg/dL, High >219 mg/dL, Very high Secondary prevention optimal non HDL Cholesterol levels are recommended to be <100 mg/dL Performed By: #### 2 4323-8, LIPNF ####[facility] LABCLIA [id number] [address] [place] [address] [facility] OF [facility] T CHOL/HDL RATIO NF 2.69 mg/dL Normal <5.10 [facility] Comment on above: Order Comment: Speci men Type: BLOOD SPECIMENOrdering Facility: [facility] Address: [address] [place] [address] Performed By: #### 2 4323-8, LIPNF ####[facility] LABCLIA [id number] [place] [id number] [place] TRIGLYCERIDES, NF 95 mg/dL Normal <150 [facility] Comment on above: Order Comment: Speci men Type: BLOOD SPECIMENOrdering Facility: [facility] Address: [address] [place], [place] [address] Result Comment: <150 mg/dL, Normal 150-199 mg/dL, Borderline high 200-499 mg/dL, High >499 mg/dL, Very high Performed By: #### 2 4323-8, LIPNF ####[facility] LABCLIA [id number] [place] [address] [place] VLDL CHOLESTEROL, NF 14 mg/dL Normal <30 [facility] Comment on above: Order Comment: Speci men Type: BLOOD SPECIMENOrdering Facility: [facility] Address: [address] [place] [address] Performed By: #### 2 4323-8, LIPNF ####[facility] LABCLIA [id number] [place] [id number] [place] Urinalysis complete panel (U )on 01-18-2025 Bacteria LM.HPF (Urine sed) [#/Area] Negative Normal Negative [facility] Comment on above: Order Comment: Speci men Type: URINE SPECIMENOrdering Facility: [facility] Address: [address] [place], [place] [address] Performed By: #### 2 4356-8 ####[facility] LABCLIA [id number] [place] [id number] [place] Bilirubin Ql (U) Negative Normal Negative [facility] Comment on above: Order Comment: Speci men Type: URINE SPECIMENOrdering Facility: [facility] Address: [address] [place] [id number] Performed By: #### 2 4356-8 ####[facility] LABCLIA [id number] [address] [place] [address] [place] Clarity (Unsp spec) Clear Normal [facility] Comment on above: Order Comment: Speci men Type: URINE SPECIMENOrdering Facility: [facility] Address: [address] [place] [address] Performed By: #### 2 4356-8 ####[facility] LABCLIA [id number] [address], [facility] [place] Color (U) Yellow Normal Yellow [facility] Comment on above: Order Comment: Speci men Type: URINE SPECIMENOrdering Facility: [facility] Address: [address] [place] [address] Performed By: #### 2 4356-8 ####[facility] LABCLIA [id number] [address], [facility] [place] Epithelial cells LM.HPF (Urine sed) [#/Area] None Seen Normal [facility] Comment on above: Order Comment: Speci men Type: URINE SPECIMENOrdering Facility: [facility] Address: [address] [place] [address] Performed By: #### 2 4356-8 ####[facility] LABCLIA [id number] [address] [address] [place] Glucose Test strip (U) [Mass/Vol] 3+ Abnormal Negative [facility] Comment on above: Order Comment: Speci men Type: URINE SPECIMENOrdering Facility: [facility] Address: [address] [place] [address] Performed By: #### 2 4356-8 ####[facility] LABCLIA [id number] [address] [place] [address] [place] Hemoglobin Ql (U) Negative Normal Negative [facility] Comment on above: Order Comment: Speci men Type: URINE SPECIMENOrdering Facility: [facility] Address: [address] [place] [address] Performed By: #### 2 4356-8 ####[facility] LABCLIA [id number] [address] [place] [address] [place] Hyaline casts (Urine sed) [#/Area] 0 /[LPF] Normal 0 /LPF [facility] Comment on above: Order Comment: Speci men Type: URINE SPECIMENOrdering Facility: [facility] Address: [address] [place] [address] Performed By: #### 2 4356-8 ####[facility] LABCLIA [id number] [address], [facility] [place] Ketones Ql (U) Negative Normal Negative [facility] Comment on above: Order Comment: Speci men Type: URINE SPECIMENOrdering Facility: [facility] Address: [address] [place] [address] Performed By: #### 2 4356-8 ####[facility] LABCLIA [id number] [address], [facility] [place] Leukocyte esterase Test strip Ql (U) Negative Normal Negative [facility] Comment on above: Order Comment: Speci men Type: URINE SPECIMENOrdering Facility: [facility] Address: [address] [place] [address] Performed By: #### 2 4356-8 ####[facility] LABCLIA [id number] [facility] [address] [place] [address] [place] Nitrite Ql (U) Negative Normal Negative [facility] Comment on above: Order Comment: Speci men Type: URINE SPECIMENOrdering Facility: [facility] Address: [address] [place] [address] Performed By: #### 2 4356-8 ####[facility] LABCLIA [id number] [address], [facility] [place] pH (U) 6.0 [pH] Normal <8.5 [facility] Comment on above: Order Comment: Speci men Type: URINE SPECIMENOrdering Facility: [facility] Address: [address] [place] [address] Performed By: #### 2 4356-8 ####[facility] LABIA [id number] [place] [address] [place] Protein (U) [Mass/Vol] Negative Normal Negative [facility] Comment on above: Order Comment: Speci men Type: URINE SPECIMENOrdering Facility: [facility] Address: [address] [place] [address] Performed By: #### 2 4356-8 ####[facility] LABIA [id number] [place] [address] [place] RBC LM.HPF (Urine sed) [#/Area] 0-2 /HPF Normal 0-2 /HPF [facility] Comment on above: Order Comment: Speci men Type: URINE SPECIMENOrdering Facility: [facility] Address: [address] [place] [address] Performed By: #### 2 4356-8 ####[facility] [id number] [place] [address] [place] Specific gravity (U) [Rel density] 1.024 Normal 1.005-1.03 0 [facility] Comment on above: Order Comment: Speci men Type: URINE SPECIMENOrdering Facility: [facility] Address: [address] [place] [address] Performed By: #### 2 4356-8 ####[facility] LABIA [id number] [place] [address] [place] Urobilinogen Ql (U) 0.2 EU/dL Normal 0.2-1.0 EU/dL [facility] Comment on above: Order Comment: Speci men Type: URINE SPECIMENOrdering Facility: [facility] Address: [address] [place] [id number] Performed By: #### 2 4356-8 ####[facility] LABCLIA [id number] [place] [id number] [place] WBC LM.HPF (Urine sed) [#/Area] 0-5 /HPF Normal 0-5 /HPF [facility] Comment on above: Order Comment: Speci men Type: URINE SPECIMENOrdering Facility: [facility] Address: [address] [place] [address] Performed By: #### 2 4356-8 ####[facility] LABCLIA [id number] [place] [id number] [place] Abd Aortic/IVC Duplex scanon 12-23-2024 Abd Aortic/IVC Duplex scan [facility] [address] [facility] [place] [address] Abd Aortic/IVC Duplex scan 12/23/24 0803 MR#: [id number] Acct: [id number] Name: MICHAEL BATES JrMukesh Rep #: [id number] : 1955 69 From: Jered Egan MD Attending Dr: CAMELIA Julian Status: REG CLI Ordering Dr: Yolanda Dean PA Date: 12/01 12/24 Location: [facility] Sex: M C Admitted: Reason For Study Reason For Study: PVD / Screening Aorta Measurements Aorta Doppler Measurements Proximal aorta measures2.48 x 2.52cm. in cross-sectional Peak systolic flow velocities within the proximal aorta axis. measure 79.6 cm/sec. Proximal aorta measures2.53cm. in longitudinal axis. Peak systolic flow velocities within the mid aorta measure Mid aorta measures1.89 x 1.74cm. in cross-sectional axis. 90.4 cm/sec. Mid aorta measures1.81cm. in longitudinal axis. Peak systolic flow velocities within the distal aorta Distal aorta measures1.61 x 1.55cm. in cross-sectional axis.measure 150.1 cm/sec. Distal aorta measures1.78cm. in longitudinal axis. Left Iliac Artery Left iliac artery measures 1.18 x 1.07 cm. in the cross-sectional axis. Left iliac artery measures 1.16 cm. in the longitudinal axis. Peak systolic velocity in the left iliac artery measures 90.4 cm/sec. Right Iliac Artery Right iliac artery measures 1.18 x 1.14 cm. in the cross-sectional axis. Right iliac artery measures 1.12 cm. in the longitudinal axis. Peak systolic velocity in the right iliac artery measures 116.3 cm/sec. VL/Abd Aortic/IVC Duplex scan Interpretation Summary Aorta patent, normal caliber. Bilateral iliac arteries patent, normal caliber. Ordering Physician: Yolanda Dean Referring Physician: Nadir Grady Performed By: Lucia Castaneda, T 12/23/241828 Date Jered Egan MD CC: Dr. Nadir Grady MD; CAMELIA Julian Date Dictated: 12/23/24802 Date Transcribed: 12/23/241828 Letter Sorting Machine Operator: Signed Normal [facility] Abdominal aortic duplex scan reportOrdered By: Jered Egan on 12-23-2024 US.doppler Thoracic and abdominal aorta [facility] [address] [place] [address] Abd Aortic/IVC Duplex scan 12/23/24802 MR#: [id number] Acct: [id number] Name: MICHAEL BATES JrMukesh Rep #:[id number] : 1955 69 From: Jered Escoto Attending Dr: CAMELIA Julian Status: REG CLI Ordering Dr: Yolanda Dean PA Date: 12/23/24 Location: [facility] Sex: M C Admitted: Reason For Study Reason For Study: PVD / Screening Aorta Measurements Aorta Doppler Measurements Proximal aorta measures2.48 x 2.52cm. in cross-sectional Peak systolic flow velocities within the proximal aorta axis. measure 79.6 cm/sec. Proximal aorta measures2.53cm. in longitudinal axis. Peak systolic flow velocities within the mid aorta measure Mid aorta measures1.89 x 1.74cm. in cross-sectional axis. 90.4 cm/sec. Mid aorta measures1.81cm. in longitudinal axis. Peak systolic flow velocities within the distal aorta Distal aorta measures1.61 x 1.55cm. in cross-sectional axis.measure 150.1 cm/sec. Distal aorta measures1.78cm. in longitudinal axis. Left Iliac Artery Left iliac artery measures 1.18 x 1.07 cm. in the cross-sectional axis. Left iliac artery measures 1.16 cm. in the longitudinal axis. Peak systolic velocity in the left iliac artery measures 90.4cm/sec. Right Iliac Artery Right iliac artery measures 1.18 x 1.14 cm. in the cross-sectional axis. Right iliac artery measures 1.12 cm. in the longitudinal axis. Peak systolic velocity in the right iliac artery measures 116.3 cm/sec. VL/Abd Aortic/IVC Duplex scan Interpretation Summary Aorta patent, normal caliber. Bilateral iliac arteries patent, normal caliber. Ordering Physician: Yolanda Dean Referring Physician: Nadir Grady Performed By: Lucia Castaneda, T 12/23/24 182 Date _ Jered Egan MD CC: Dr. Nadir Grady MD; CAMELIA Julian ~ Date Dictated: 12/23/24 0803 Date Transcribed: 12/23/241828 Letter Sorting Machine Operator: Signed [facility] Work Phone: Arterial study reportOrdered By: Jered Egan on 12-23-2024 Noninvasive arteriosclerosis study report [facility] [address] [place] [address] Lower Ext Art Exam w/o Exercis 12/23/24 0757 MR#: [id number] Acct: [id number] Name: MICHAEL BATES Jr. Rep #:[id number] : 1955 69 From: Jered Escoto Attending Dr: CAMELIA Julian Status: REG CLI Ordering Dr: Yolanda Dean Date: 12/23/24 Location: [facility] Sex: M C Admitted: Reason For Study Reason For Study: Claudication Procedure A bilateral lower extremity continuous wave Doppler with analog waveform analysis,segmental pressures,and ankle brachial indexes without exercise. Left Segmental Pressures Left brachial= 138mmHg. Left posterior tibial artery = 182mmHg. Left dorsalis pedis artery = 189mmHg. Left digit = 128 mmHg. The left posterior tibial artery waveforms are triphasic. The left dorsalis pedis waveforms are triphasic. Right Segmental Pressures Right brachial= 130mmHg. Right posterior tibial artery = 168mmHg. Right dorsalispedis artery = 181mmHg. Right digit = 127 mmHg. The right posterior tibial artery waveforms are triphasic. The right dorsalis pedis waveforms are triphasic. Indices The right ankle brachial index by the posterior tibial artery is 1.22. The rightankle brachial index by the dorsalis pedis is 1.31. The right digital-brachial index is 0.92. The left ankle brachialindex by the posterior tibial artery is 1.32. The left ankle brachial index by the dorsalis pedis is 1.37. The left digital-brachial index is 0.93. VL/Lower Ext Art Exam w/o Exercis Interpretation Summary Right ELICIA 1.31, normal. TBI and Doppler/PVR waveforms of the right leg normal atrest. Left ELICIA 1.37, normal. TBI and Doppler/PVR waveforms of the left leg normal at rest. Ordering Physician: Yolanda Dean Referring Physician: Nadir Grady Performed By: LUCIA CASTANEDA RVT 12/23/241833 Date _ Jered Egan MD CC: Dr. Nadir Grady MD; CAMELIA Julian ~ Date Dictated: 12/23/24 0757 Date Transcribed: 12/23/241833 Letter Sorting Machine Operator: Signed [facility] Work Phone: Carotid Duplex Ultrasoundon 12-23-2024 Carotid Duplex Ultrasound [facility] [address] [place] [address] Carotid Duplex Ultrasound 12/23/24 0811 MR#: [id number] Acct: [id number] Name: MICHAEL BATES Jr. Rep #: [id number] : 1955 69 From: Jered Egan MD Attending Dr: CAMELIA Julian Status: REG CLI Ordering Dr: Yolanda Dean PA Date: 12/01 12/24 Location: [facility] Sex: M C Admitted: Reason For Study Reason For Study: Dizziness Rt. Velocities/BP Lt. Velocities/BP Prox CCA 78.1/11.8 cm/sec. Prox CCA 92.4/17.5 cm/sec. Mid CCA 89.1/16.7 cm/sec. Mid CCA 94.2/21.2 cm/sec. Dist CCA 84.2/17.9 cm/sec. Dist CCA 85.1/19.4 cm/sec. Prox ICA 175.2/43.0 cm/sec. Prox ICA 167.4/43.0 cm/sec. Mid ICA 121.5/37.8 cm/sec. Mid ICA 111.0/30.2 cm/sec. Dist ICA 116.9/36.9 cm/sec. Dist ICA 97.9/17.5 cm/sec. Rt. ICA/CCA = 2.0. Lt. ICA/CCA = 1.8. Prox ECA 119.8/8.4 cm/sec. Prox ECA 123.5/10.2 cm/sec. Rt. Vert. 34.1/7.4 cm/sec. Lt. Vert. 52.5/14.7 cm/sec. Right Extracranial There is heterogeneous, irregular atherosclerotic plaque noted in the right common carotid artery. There is heterogeneous, irregular atherosclerotic plaque noted in the right internal carotid artery. There is heterogeneous, irregular atherosclerotic plaque noted in the right external carotid artery. Antegrade flow is noted in the right vertebral artery. Left Extracranial There is heterogeneous, irregular atherosclerotic plaque noted in the left common carotid artery. There is heterogeneous, irregular atherosclerotic plaque noted in the left internal carotid artery. There is heterogeneous, irregular atherosclerotic plaque noted in the left external carotid artery. Antegrade flow is noted in the left vertebral artery. Procedure Carotid Duplex 10958. This is a Carotid Duplex examination using B-mode, color flow and specral Doppler. The exam was diagnostic. Exam performed in department. VL/Carotid Duplex Ultrasound Interpretation Summary Moderate (50-69%) stenosis right extracranial internal carotid. Moderate (50-69%) stenosis left extracranial internal carotid. Patent and antegrade vertebrals bilaterally. Ordering Physician: Yolanda Dean Referring Physician: Nadir Grady Performed By: Lucia Castaneda, RVT 12/23/24 489 Date Jered Egan MD CC: Dr. Nadir Grady MD; CAMELIA Julian Date Dictated: 12/23/24810 Date Transcribed: 12/23/24 1831 Letter Sorting Machine Operator: Signed Normal [facility] Duplex ultrasound of carotid artery reportOrdered By: Jered Egan on 12-23-2024 Study report [facility] Cardiovascular Services [address] [place] [address] Carotid Duplex Ultrasound 12/23/24810 MR#: [id number] Acct: [id number] Name: MICHAEL BATES Jr. Rep #:[id number] : 1955 69 From: Jered Ecsoto Attending Dr: CAMELIA Julian Status: REG CLI Ordering Dr: Yolanda Dean Date: 12/23/24 Location: CVS Sex: M C Admitted: Reason For Study Reason For Study: Dizziness Rt. Velocities/BP Lt. Velocities/BP Prox CCA 78.1/11.8 cm/sec. Prox CCA 92.4/17.5 cm/sec. Mid CCA 89.1/16.7 cm/sec. Mid CCA 94.2/21.2 cm/sec. Dist CCA 84.2/17.9 cm/sec. Dist CCA 85.1/19.4 cm/sec. Prox ICA 175.2/43.0 cm/sec. Prox ICA 167.4/43.0 cm/sec. Mid ICA 121.5/37.8 cm/sec. Mid ICA 111.0/30.2 cm/sec. Dist ICA 116.9/36.9 cm/sec. Dist ICA 97.9/17.5 cm/sec. Rt. ICA/CCA = 2.0. Lt. ICA/CCA = 1.8. Prox ECA 119.8/8.4 cm/sec. Prox ECA 123.5/10.2 cm/sec. Rt. Vert. 34.1/7.4 cm/sec. Lt. Vert. 52.5/14.7 cm/sec. Right Extracranial There is heterogeneous, irregular atherosclerotic plaque noted in the right common carotid artery. There is heterogeneous, irregular atherosclerotic plaque noted in the right internal carotid artery. There is heterogeneous, irregular atherosclerotic plaque noted in the right external carotid artery. Antegrade flow is noted in the right vertebral artery. Left Extracranial There is heterogeneous, irregular atherosclerotic plaque noted in the left common carotid artery. There is heterogeneous, irregular atherosclerotic plaque noted in the left internal carotid artery. There is heterogeneous, irregular atherosclerotic plaque noted in the left external carotid artery. Antegrade flow is noted in the left vertebral artery. Procedure Carotid Duplex 18868. This is a Carotid Duplex examination using B-mode, color flow and specral Doppler. The exam was diagnostic. Exam performed in department. VL/Carotid Duplex Ultrasound Interpretation Summary Moderate (50-69%) stenosis right extracranial internal carotid. Moderate (50-69%) stenosis left extracranial internal carotid. Patent and antegrade vertebrals bilaterally. Ordering Physician: Yolanda Dean Referring Physician: Nadir Grady Performed By: Lucia Castaneda, [facility] 12/23/241830 Date _ Jered Egan MD CC: Dr. Nadir Grady MD; CAMELIA Julian ~ Date Dictated: 12/23/24 0811 Date Transcribed: 12/23/241830 Letter Sorting Machine Operator: Signed [facility] Work Phone: Lower Ext Art Exam w/o Exerc david 12-23-2024 Lower Ext Art Exam w/o Exercis [facility] Cardiovascular Services [address] [place] [address] Lower Ext Art Exam w/o Exercis 12/23/24 5764 MR#: [id number] Acct: [id number] Name: MICHAEL BATES Jr. Rep #: [id number] : 1955 69 From: Jered Egan MD Attending Dr: CAMELIA Julian Status: REG CLI Ordering Dr: Yolanda Dean Date: 12/01 12/24 Location: CVS Sex: M C Admitted: Reason For Study Reason For Study: Claudication Procedure A bilateral lower extremity continuous wave Doppler with analog waveform analysis,segmental pressures,and ankle brachial indexes without exercise. Left Segmental Pressures Left brachial= 138mmHg. Left posterior tibial artery = 182mmHg. Left dorsalis pedis artery = 189mmHg. Left digit = 128 mmHg. The left posterior tibial artery waveforms are triphasic. The left dorsalis pedis waveforms are triphasic. Right Segmental Pressures Right brachial= 130mmHg. Right posterior tibial artery = 168mmHg. Right dorsalis pedis artery = 181mmHg. Right digit = 127 mmHg. The right posterior tibial artery waveforms are triphasic. The right dorsalis pedis waveforms are triphasic. Indices The right ankle brachial index by the posterior tibial artery is 1.22. The right ankle brachial index by the dorsalis pedis is 1.31. The right digital-brachial index is 0.92. The left ankle brachial index by the posterior tibial artery is 1.32. The left ankle brachial index by the dorsalis pedis is 1.37. The left digital-brachial index is 0.93. VL/Lower Ext Art Exam w/o Exercis Interpretation Summary Right ELICIA 1.31, normal. TBI and Doppler/PVR waveforms of the right leg normal at rest. Left ELICIA 1.37, normal. TBI and Doppler/PVR waveforms of the left leg normal at rest. Ordering Physician: Yolanda Dean Referring Physician: Nadir Grady Performed By: LUCIA CASTANEDA RVT 12/23/241833 Date Jered Egan MD CC: Dr. Nadir Grady MD; CAMELIA Julian Date Dictated: 12/23/24756 Date Transcribed: 12/23/241833 Letter Sorting Machine Operator: Signed [facility] CNOVon 12-13-2024 OV Office Visit (SLEWST ) MICHAEL BATES ([id number]) 1955 M Date Time Provider Department 12/13/24 10:00 AM MOLLY HOUSER During your visit today, we recorded the following information about you: Pulse Respiration Blood pressure Weight 74/minute 18/minute 129/80 78.8 kg Molly Houser APRN.CNP 12/16/2024 9:29 PM Signed [facility] Sleep Disorders Center Follow up/ Established patient visit Date of last visit : 10/22/2024 The following Impression/Plan was copied and pasted from the patient's last Sleep Disorders Center visit on 10/22/24: IMPRESSION/PLAN: 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 He has been sleeping in a recliner since his 8 yrs ago. We discussed JOSÉ ANTONIO, how it can cause/exacerbate other issues, that I want to test him for that first, treat it if he has it, then work on the other sleep issues especially sleep onset insomnia and PAMELA. He also has RLS. We briefly discussed PAP therapy as an introduction in case it proves necessary. - Polysomnogram (PSG) to evaluate for obstructive sleep apnea. Per pt choice will do at [facility]. To include RBD montage. Rx for zolpidem 5 mg to take at the sleep lab. - Discussed with the patient the possible diagnosis, causes, and conditions associated with obstructive sleep apnea. - Avoid driving when drowsy. Recommend that if you are dozing off while driving, that you do not drive until your sleepiness is appropriately treated. -Encouraged healthy lifestyle with adequate sleep ( 7-9 hours per night), diet and exercise. - Results are usually available within 7-10 business days. If you do not hear from us within 1-2 weeks after testing, please contact us directly. RLS -- If sleep apnea then will treat with PAP therapy and look for improvement in RLS. Normal iron level in 07/2024. He has DM so it's possible neuropathy could exacerbate, as well as lumbar radiculapathy. PAMELA -- Look for underlying sleep disorder such as sleep apnea causing dream enactment, if so will expect resolution with PAP therapy. If no JOSÉ ANTONIO then would start treating with melatonin; second line would be clonazepam. Chronic intermittent sleep onset insomnia -- consider melatonin first due to PAMELA. Recommend he get OOB if he can't sleep after 30 min, do something boring, only get back into bed when drowsy. EDS -- will look for improvement if JOSÉ ANTONIO and we treat it, as well as his other sleep issues. - Follow up visit 3 wks after PSG. Please schedule this appointment now to ensure your preferred time and location. Molly Houser APRN.CERTIFIED ANESTHESIOLOGIST ASSISTANT Here for follow up for discussion of PSG that was obtained due to snoring, frequent nocturnal awakening, non-restorative sleep, dream enactment behavior, sleep onset insomnia, excessive daytime sleepiness, RLS 11/09/24 PSG at [facility]: AHI 26 (4% scoring) Mean O2 91% Awake mean O2 93% O2 ira 81% O2 <=88% for 23.7 minutes No abnl behavior No RSWA All supine Interpreting physician recommends autoCPAP No improvement in his sleep since his initial visit Bruise on right forearm from PAMELA, threw his right arm and hit lamp Still sleeping in recliner (has been since his 's 8 yrs ago) Has sleep onset insomnia, can take hours Wakes in night due to pain and cats Gets 6 hrs of sleep Takes naps Has RLS 7 nights per week PATIENT-ENTERED QUESTIONNAIRE SLEEP SCORES 10/16/2015 07/09/2016 09/09/2018 PHQ-9 Score 14 1 0 11/07/2020 02/13/2021 04/19/2022 PROMIS Global Health - (T-Scores - the mean of general population = 50. Five points is a clinically meaningful difference.) Physical T-Score 32.4 29.6 29.6 Mental T-Score 33.8 33.8 33.8 ALLERGIES Allergen Reactions Florinef [Fludrocor* Angioedema Losartan Angioedema Perfumes Other: See Comments sneezing Ranexa [Ranolazine] Other: See Comments Headache, nausea and nose bleed CURRENT MEDICATIONS: metFORMIN ER (GLUCOPHAGE XR) 500 mg 24 hr tablet Take 2 tablets by mouth two times a day. isosorbide mononitrate ER (IMDUR) 30 mg 24 hr tablet Take 1 tablet by mouth once daily. Per Cardio: [facility] empagliflozin (JARDIANCE) 10 mg tablet Take 1 tablet by mouth once daily. Take 1 tablet once daily in the morning Zinc Gluconate 50 mg tablet Take 50 mg by mouth once daily. ferrous sulfate 325 mg (65 mg iron) tablet Take 1 tabl (more content not included)... Normal [facility] 12 Lead EKG performed by [facility] on 12-08-2024 12 Lead EKG performed by [facility] [address] [place] [address] 12 Lead EKG performed by [facility] 12/08/24816 MR#: [id number] Acct: [id number] Name: MICHAEL BATES Jr. Rep #: [id number] : 1955 69 From: Yolanda Ye Attending Dr: CAMELIA Julian Status: DEP AMB Ordering Dr: Yolanda Dean Date: 05/26 Location: [facility] Sex: M C Admitted: BMS/12 Lead EKG performed by [facility] ECG Report Interpretation ----Sinus Rhythm WITHIN NORMAL LIMITSElectronically signed on 12/08/2024 at 11:28 by Jd [employer] Software Version 8610 12/08/24 1134 Date Yolanda DENISE CC: Dr. Nadir Grady MD Date Dictated: 12/08/24816 Date Transcribed: 12/08/24816 Letter Sorting Machine Operator: SHAHEEN Signed Normal [facility] Bilirubin directOrdered By: Yolanda Dean on 12-08-2024 Bilirubin.direct [Mass/Vol] 0.15 mg/dL 0.00-0.3 0 [facility] Bilirubin, totalOrdered By: Yolanda Dean on 12-08-2024 Bilirubin [Mass/Vol] 0.34 mg/dL 0.00-1.30 [facility] Calculated very low density lipoprotein (VLDL) cholesterol measurementOrdered By: Yolanda Dean on 12-08-2024 Calculated very low density lipoprotein (VLDL) cholesterol measurement 28 mg/dL 5-40 [facility] VLDL Cholesterol 28 mg/dL 5-40 [facility] Cardiology Visit Reporton Cardiology Visit Report [facility] [address] [place], [place] [address] OFFICE VISIT Date of Service: 12/08/24 MR#: [id number] Acct: [id number] Name: ADIAFAISALMICHAEL Jr. Rep #: [id number] : 1955 Provider: CAMELIA Hurd Age/Sex: 69/M Location: [facility] Status: Signed HPI HPI History of Present Illness Details: Michael Bates is a 69-year-old old man with a history of coronary artery disease who presents for a follow-up evaluation. He does have a history of coronary artery disease with stenting to his mid LAD and ramus in 2016, ostial left circumflex in May 2020 and Jul 2021, proximal circumflex in October 2020, and mid RCA in April 2021. He also has a history of hypertension, hyperlipidemia, syncope and carotid artery stenosis. As you remember he had been having a lot of syncopal episodes and was referred to neurology and eventually had a loop recorder placed for syncope evaluation which thus far has not demonstrated any significant abnormalities. Due to his recurrent syncope he had been placed on fludrocortisone but said that he had an allergic reaction to it and so was put on midodrine. He continues to complain of chest discomfort and in December 2021 underwent a stress test which was negative for ischemia and subsequently in January of the same year underwent a cardiac catheterization which demonstrated diffuse coronary disease with previously placed stents noted in the LAD diagonal and ramus, circumflex artery and right coronary artery were all noted to be patent. Diffuse distal disease was noted no high-grade stenosis was present. He had been started on Ranexa which was discontinued due to nausea. He had a stress test in June 2023 that was negative for ischemia. He was admitted to [facility] on October 09, 2023 with chest discomfort. EKG had demonstrated ST depressions in V5 and V6. Troponins were negative. He did have an echocardiogram which demonstrated an ejection fraction of 60%.He did undergo a diagnostic heart catheterization which demonstrated 50% proximal LAD stenosis, 50 to 60% mid LAD stenosis, 70% proximal OM2 stenosis unchanged from previous study, 95% calcified proximal RCA and 90% calcified mid RCA and 70% 6 distal RCA. He underwent successful shockwave lithotripsy and stenting of his distal RCA. Patient was in the emergency room on October 15 for chest discomfort. Workup was negative. He did need to go use NTG for this. It did not work. He was cleaning the house. Rated the pain as a 4/10. It was to the left of his sternum. He was then in the emergency room on the for concerns over swelling in his tongue. He was advised to stop his losartan. We had increased his Ranexa to 1000 mg twice a day. Patient was in the hospital and December 2023 for chest pain. He did undergo a diagnostic stress test. This was negative for ischemia. At that time it was noted that he was on both Brilinta and Plavix. Plavix was discontinued. Pt was in the office at the end of July 2024, He does have chest pain that occurs daily, this is with walking, it is sharp. It can occur 3-4 times a day, he does not take NTG for this. He did undergo a diagnostic heart cath. He did have reinstent stenosis of his RCA, he did this stented. He continues to have chest pain. It is not any different that when he had had for a while. He has not needed to use any NTG. He does sts that the CP is daily, it notes that it can last up to 15 minutes. It is not brought on by anything in particular. He does continue to have lightheaded. He has not had any syncope. The lightheadedness is quick and only 1-2 seconds. He does not have any worsening SOB. He does have left leg pain with walking. He does not have any edema. He has been having sharp pains in his back, it is in his thoracic area. Sometimes it correlates with is chest pain. Intake Vital Signs 09/08/24 12:53 12/08/24 08:14 12/08/24 08:17 Height 5 ft 10 in 5 ft 10 in 5 ft 10 in Weight: 174 lb BMI 25.0 BP 122/66 H Blood Pressure Location Lt brachial Position Sitting Respiration 18 Pulse 77 Pulse Source Monitor Pulse Oximetry (%) 96 Intake Visit Reasons: 3 M FU Work Order Detailer Required: No Is patient in pain?: No Allergies fludrocortisone (From Florinef) Allergy (Severe, Verified 12/08/24 08:15) ANGIOEDEMA losartan Adverse Reaction (Severe, Verified 12/08/24 08:15) Angioedema iodine Adverse Reaction (Verified 12/08/24 08:15) unknown perfume Adverse Reaction (Verified 12/08/24 08:15) Other Medications ???Medication ???Instructions ???Recorded ???Confirmed ???Type aspirin 81 mg tablet,delayed 81 mg PO DAILY@0800 heart health 0 09/13/13 12/08/24 History release omega 1-lfs-dzs-fish oil 1,000 mg 1,000 mg PO QDAY supplement 01/0612/08/24 History (120 mg-1 (more content not included)... Normal [facility] LDL calc ser/plasOrdered By: Yolanda Dean on 12-08-2024 Cholesterol in LDL [Mass/Vol] 40 mg/dL [facility] Comment on above: Mxrtdenxag=162-604 m g/dL & Higher Cera=007 mg/dL or greater LDL Cholesterol, Calculated 40 mg/dL [facility] Comment on above: Bqqwbzvksv=394-751 m g/dL & Higher Psgu=770 mg/dL or greater Laboratory - Chemistry and C hemistry - challengeOrdered By: Yolanda Dean on 12-08-2024 AST [Catalytic activity/Vol] 23 U/L <38 [facility] Lipid Profileon 12-08-2024 CHOL:HDL 2.58 Normal [facility] Comment on above: Performed By: #### L 500.3400, L500.4100 #### [facility] Laboratory [address] [place], [address] Cholesterol [Mass/Vol] 111 mg/dL Normal <=200 [facility] Comment on above: Result Comment: Chol esterol level, Desirable <200 mg/dL Borderline high cholesterol 200-239 mg/dL High cholesterol >=240 mg/dL Recommendations of the NCEP Adult Treatment Panel for the following risk-cutoff thresholds for the [place] population. Performed By: #### L 500.3400, L500.4100 #### [facility] [address] [place], [address] Cholesterol in HDL [Mass/Vol] 43 mg/dL Normal [facility] Comment on above: Result Comment: Ariella onal Cholesterol Education Program (NCEP) guidelines: <40 mg/dL: Low HDL-cholesterol (major risk factor for CHD) >= 60 mg/dL: High HDL-cholesterol (negative risk factor for CHD) HDL-cholesterol is affected by a number of factors, e.g. smoking, exercise, hormones, sex and age. Performed By: #### L 500.3400, L500.4100 #### [facility] [address] [place], [address] Cholesterol in LDL [Mass/Vol] 40 mg/dL Normal [facility] Comment on above: Result Comment: Bord sknjij=248-280 mg/dL Higher Etbr=091 mg/dL or greater Performed By: #### L 500.3400, L500.4100 #### [facility] [address] [place], [address] Cholesterol in VLDL [Mass/Vol] 28 mg/dL Normal 5-40 [facility] Comment on above: Performed By: #### L 500.3400, L500.4100 #### [facility] [address] [place], [address] Triglyceride [Mass/Vol] 142 mg/dL Normal [facility] Comment on above: Result Comment: The drugs N-Acetylcysteine and Metamizole may falsely depress this assay. Normal range: <150 mg/dL Borderline High: 150-199 mg/dL High: 200-499 mg/dL Very High: >500 mg/dL Performed By: #### L 500.3400, L500.4100 #### [facility] [address] [place], [address] Liver Profileon 12-08-2024 Albumin [Mass/Vol] 4.7 g/dL Normal 3.4-4.8 [facility] Comment on above: Performed By: #### L 500.3400, L500.4100 #### [facility] [address] [place], [address] ALK PHOS 133 U/L High 40-129 [facility] Comment on above: Performed By: #### L 500.3400, L500.4100 #### [facility] [address] [place], [address] ALT [Catalytic activity/Vol] 27 U/L Normal <=46 [facility] Comment on above: Performed By: #### L 500.3400, L500.4100 #### [facility] [address] [place], [address] AST [Catalytic activity/Vol] 23 U/L Normal <=37 [facility] Comment on above: Performed By: #### L 500.3400, L500.4100 #### [facility] [address] [place], [address] Bilirubin [Mass/Vol] 0.34 mg/dL Normal 0.00-1.30 [facility] Comment on above: Performed By: #### L 500.3400, L500.4100 #### [facility] [address] [place], [address] Bilirubin.direct [Mass/Vol] 0.15 mg/dL Normal 0.00-0.3 0 [facility] Comment on above: Performed By: #### L 500.3400, L500.4100 #### [facility] [address] [place], [address] Globulin (S) [Mass/Vol] 2.9 g/dL Normal 2.2-4.2 [facility] Comment on above: Performed By: #### L 500.3400, L500.4100 #### [facility] [address] [place], [address] T PROT 7.5 g/dL Normal 5.9-8.4 [facility] Comment on above: Performed By: #### L 500.3400, L500.4100 #### [facility] [address] [place], [address] Screening total cholesterol/ high density lipoprotein (HDL) cholesterol ratioOrdered By: Yolanda Dean on 12-08-2024 Cholesterol.total/Cholestero l in HDL [Mass ratio] 2.58 {ratio} [facility] Serum globulin measurementOr dered By: Yolanda Dean on 12-08-2024 Globulin (S) [Mass/Vol] 2.9 g/dL 2.2-4.2 [facility] Serum or plasma alanine toscano otransferase (ALT) measurementOrdered By: Yolanda Dean on 12-08-2024 ALT [Catalytic activity/Vol] 27 U/L <47 [facility] Serum or plasma albumin jaziel urement (mass/volume)Ordered By: Yolanda Dean on 12-08-2024 Albumin [Mass/Vol] 4.7 g/dL 3.4-4.8 [facility] Serum or plasma alkaline geronimo sphatase measurementOrdered By: Yolanda Dean on 12-08-2024 ALP [Catalytic activity/Vol] 133 U/L High 40-129 [facility] Serum or plasma cholesterol in HDL measurement (mass/volume)Ordered By: Yolanda Dean on 12-08-2024 Cholesterol in HDL [Mass/Vol] 43 mg/dL >40 [facility] Comment on above: National Cholesterol Education Program (NCEP) guidelines:<40 mg/dL: Low HDL-cholesterol (major risk factor for CHD)>= 60 mg/dL: High HDL-cholesterol (negative risk factor for CHD)HDL-cholesterol is affected by a number of factors, e.g. smoking, exercise, hormones, sex and age. Serum or plasma cholesterol measurement (mass/volume)Ordered By: Yolanda Dean on 12-08-2024 Cholesterol [Mass/Vol] 111 mg/dL <[address] [facility] Comment on above: Cholesterol level, D esirable <200 mg/dLBorderline high cholesterol 200-239 mg/dLHigh cholesterol >=240 mg/dLRecommendations of the NCEP Adult Treatment Panel for the following risk-cutoff thresholds for the [place] population. Total proteinOrdered By: Gustavo Dean on 12-08-2024 Protein [Mass/Vol] 7.5 g/dL 5.9-8.4 [facility] Triglycerides measurementOrd ered By: Yolanda Dean on 12-08-2024 Triglyceride [Mass/Vol] 142 mg/dL <199 [facility] Comment on above: The drugs N-Acetylcy steine and Metamizole may falsely depress this assay. Normal range: <150 mg/dLBorderline High: 150-199 mg/dLHigh: 200-499 mg/dLVery High: >500 mg/dL CNPNon 03-17-2025 PENELOPE Telephone (SLEWST) MICHAEL BATES ([id number]) 1955 M Date Time Provider Department 11/15/24 MOLLY HOUSER During your visit today, we recorded the following information about you: Karin Langston LPN 11/15/2024 11:05 AM Signed Please see attached PSG results. Scan on 11/15/2024 9:56 AM by Provider, External, PA-C: [facility] PSG 11/09/24 KAITLYN Hall Rebecca, APRN.CNP 11/16/2024 6:01 PM Signed Will discuss at his upcoming follow up appointment. 11/09/24 PSG at [facility]: AHI 26 (4% scoring) Mean O2 91% Awake mean O2 93% O2 ira 81% O2 <=88% for 23.7 minutes No abnl behavior No RSWA All supine Interpreting physician recommends autoCPAP Molly Houser APRN.CNP Allergies As of Date: 11/15/2024 Noted Allergy Reaction FLORINEF (FLUDROCORTISONE) 04/25/2022 18 - Angioedema LOSARTAN 10/24/2023 18 - Angioedema PERFUMES 01/20/2012 14 - Other: See Comments Comments: sneezing RANEXA (RANOLAZINE) 09/06/2024 14 - Other: See Comments Comments: Headache, nausea and nose bleed Date Reviewed: 10/22/2024 Reviewed by: Molly Houser APRN.CNP - Fully Assessed Reason for Visit: Results [95] Prescriptions as of 11/16/2024 - zolpidem (AMBIEN) 5 mg tablet Take 1 tablet by mouth one time only for 1 dose. FOR INSOMNIA. Take at the sleep lab before sleep study. - metFORMIN ER (GLUCOPHAGE XR) 500 mg 24 hr tablet Take 2 tablets by mouth two times a day. - isosorbide mononitrate ER (IMDUR) 30 mg 24 hr tablet Take 1 tablet by mouth once daily. Per Cardio: [place] [facility] - empagliflozin (JARDIANCE) 10 mg tablet Take 1 tablet by mouth once daily. Take 1 tablet once daily in the morning - Zinc Gluconate 50 mg tablet Take 50 mg by mouth once daily. - ferrous sulfate 325 mg (65 mg iron) tablet Take 1 tablet by mouth two times a day with meals. - amLODIPine (NORVASC) 10 mg tablet Take 1 tablet by mouth once daily. Per [facility] - atorvastatin (LIPITOR) 80 mg tablet Take 1 tablet by mouth once daily. Managed by cardiology, Dr. Kern - omeprazole (PRILOSEC) 40 mg capsule Take 1 capsule by mouth once daily. Per [facility] - carvedilol (COREG) 3.125 mg tablet Take 1 tablet by mouth two times a day. [facility] - ticagrelor (BRILINTA) 90 mg tablet Take 1 tablet by mouth two times a day. Per [facility] - docosahexaenoic acid/epa (FISH OIL ORAL) Take by mouth as directed. - Blood-Glucose Meter monitoring kit Glucose Meter of Choice - Kit - Dx: Type 2 DM - Uncontrolled E11.65 - Lancets lancets Test blood sugar(s) 2 times daily. Dx: Type 2 DM - Uncontrolled E11.65 Insulin: No - blood sugar diagnostic (BLOOD GLUCOSE TEST) test strip Test blood sugar(s) 2 times daily. Dx: Type 2 DM - Uncontrolled E11.65 Insulin: No - nitroglycerin sublingual (NITROSTAT) 0.4 mg SL tablet Dissolve 1 tablet under the tongue every 5 minutes as needed for chest pain. - aspirin, enteric coated (ECOTRIN LOW STRENGTH) 81 mg EC tablet Take 1 tablet by mouth once daily. - Blood Pressure Monitor kit 1 Each once daily. - Blood Glucose Control High and Low (ACCU-CHEK MEGHANA CONTROL SOLN) soln Use as directed as indicated to check quality of test strips Problem List As Of Date 11/15/2024 Noted Resolved Migraine variant [G43.809] 07/22/2006 Cervicalgia [M54.2] 10/16/2006 10/30/2018 Adjustment disorder with depressed mood [F43.21]10/16/2006 Adhesive capsulitis of shoulder [M75.00] 12/04/2007 Unspecified pruritic disorder [L29.9] 03/02/2009 04/12/2020 Lumbago [M54.50] 02/09/2010 Sciatica [M54.30] 02/09/2010 Neck sprain and strain [S13.9XXA] 07/30/2010 08/30/2010 Other physical therapy [VUC1180] 08/16/2010 08/30/2010 Essential hypertension, benign [I10] 01/17/2012 DDD (degenerative disc disease), cervical [M50.*01/20/2012 Cervical spondylosis [M47.812] 01/20/2012 Chronic sinusitis [J32.9] Hyperlipidemia [E78.5] 08/04/2015 Mixed hyperlipidemia [E78.2] 08/04/2015 Lumbar radiculopathy [M54.16] Chronic post-traumatic headache [G44.329] 08/04/2015 Bilateral occipital neuralgia [M54.81] 08/04/2015 Seborrheic dermatitis [L21.9] 08/04/2015 Elevated LFTs [R79.89] 08/05/2015 Carotid stenosis, asymptomatic, bilateral [I65.*08/09/2015 Neck pain, chronic [M54.2, G89.29] 10/16/2015 Cervicogenic headache [G44.86] 10/16/2015 DDD (degenerative disc disease), lumbar [M51.36*06/30/2016 Radicular pain of right lower extremity [M54.10]07/09/2016 Acute right-sided low back pain with right-side*07/09/2016 Well adult exam [Z00.00] 10/03/2016 04/12/2020 Benign non-nodular prostatic hyperplasia withou*10/03/2016 Disorder of prostate [N42.9] 10/03/2016 Type 2 diabetes mellitus with diabetic neuropat*10/07/2016 Bilateral chronic knee pain [M25.561, M25.562, *10/10/2016 Coronary atherosclerosis due to lipid rich plaq*01/20/2017 S/P drug eluting coronary stent (more content not included)... Normal [facility] Spine Cervical (Routine)on 0 10-23-2024 Spine Cervical (Routine) [facility] Imaging Services [address] [place] [address] Spine Cervical (Routine) MR#: [id number] Acct: [id number] Name: MICHAEL BATES Jr. Rep #: [id number] : 1955 M 69 From: [place] PCP: Dr. Nadir Grady MD Status: REG CLI Study: Spine Cervical (Routine) Date of Exam: Exam# [id number] Ordering Dr: Hany Paz MD PROCEDURE: MRI cervical spine without IV contrast REASON FOR EXAM: Pain, left-sided radiculopathy TECHNIQUE: Multisequence multiplanar MR images of the cervical spine were obtained without the administration of intravenous contrast. COMPARISON: 01/16/2023 FINDINGS: Alignment is intact. Vertebral body heights are preserved. Negative for fracture or marrow replacement. Mild/moderate multilevel degenerative disc disease. Spinal cord is of normal caliber, contour and signal intensity. No paraspinal mass. C2-3: No focal disc abnormality or spinal stenosis. Minimal uncovertebral and moderate bilateral facet arthrosis. Mild bilateral foraminal narrowing. C3-4: Posterior disc osteophyte complex eccentric to the right. Bilateral uncovertebral and facet arthrosis. No significant spinal stenosis. Moderate right and mild left foraminal narrowing. C4-5: Posterior disc osteophyte complex eccentric to the left. Bilateral uncovertebral and facet arthrosis, greater on the left. Mild spinal stenosis. Moderate left foraminal narrowing. C5-6: Posterior disc osteophyte complex. Mild bilateral uncovertebral arthrosis. No significant spinal stenosis or foraminal narrowing. C6-7: Minimal posterior disc osteophyte complex. Mild bilateral uncovertebral arthrosis. No significant spinal stenosis or foraminal narrowing. C7-T1: No focal disc abnormality, spinal stenosis or foraminal narrowing. MRI/Spine Cervical (Routine) IMPRESSION: 1. Acquired mild spinal stenosis at C4-5. 2. Acquired moderate right foraminal narrowing at C3-4 and left foraminal narrowing at C4-5. [facility]: Dr. Nadir Grady MD; Dr. Hany Paz MD Letter Sorting Machine Operator: Signed Normal [facility] CNOVon 10-22-2024 CNOV Office Visit (SLEWST ) MICHAEL BATES ([id number]) 1955 M Date Time Provider Department 10/22/24 1:00 PM MOLLY HOUSER SLEWSRosa During your visit today, we recorded the following information about you: Pulse Respiration Blood pressure Weight 72/minute 18/minute 131/76 79.4 kg Molly Houser APRN.CERTIFIED ANESTHESIOLOGIST ASSISTANT 10/22/2024 1:57 PM Signed [facility] New Patient Evaluation PATIENT NAME: Michael Bates DATE OF SERVICE: October 22, 2024 CONSULTING PROVIDER: Nadir Grady [address] [facility] [address] REASON FOR CONSULT: Nadir Grady sends the patient for an opinion about hypersomnolence, snores, sleep initiation dysfunction. My findings and recommendations will be transmitted electronically via shared medical record to the consulting provider. HPI: Michael Bates is a 69 year old male. Sleep-related history: he describes his sleep as not the greatest, that has been the case for years, has nights when he doesn't sleep well. His son of cancer in May 2024. Another son is still living. SLEEP-WAKE SCHEDULE Bedtime: 9-930 PM. He has a hard time falling asleep. Time to fall asleep: can take 3 hours or he might not fall asleep at all, has sleep onset insomnia about 3 nights per week Sometimes his head pain keeps him awake. Wake time: 5 AM, without an alarm. (Cats) After falling asleep: he wakes up 2+ time(s) per night, because of cats, pain. On weekends, he maintains the same sleep schedule. Average total sleep time (in a 24 hour period): 6 hours. SLEEP-RELATED DETAILS Preferred sleep position: reclined in lounge chair for past 8 yrs (since his ) Breathing disturbances and other behaviors during sleep: snoring. Bruxism: No GERD or aspiration: No Waking up with heart pounding or racing: No Anxiety or rumination: No He reports having an urge to move the legs. The urge to move the legs only occurs in the evening or nighttime. The urge to move the legs begins or worsens during periods of rest or inactivity (e.g. lying or sitting). The urge to move the legs is partially or totally relieved by movements such as walking or stretching, at least as long as the activity continues. The urge to move the legs occurs 7 nights per week and began 3 years ago. There is no history of iron deficiency or anemia. He has not been told that he has leg kicking during sleep. The patient reports having had the following: Acting out dreams. Frequency: once a month, Time of night: unknown, Dream content: fighting, he hit the dresser as well as the lamp, once fell out of bed trying to kick someone; most recent 3 mos ago Nightmares, occas yells (son hears him) Excessive daytime sleepiness / fatigue is a problem. Excessive Daytime sleepiness/fatigue has been a problem for many years. There is no history of a viral illness or significant head injury prior to the start of daytime sleepiness. He does not report sleep paralysis or sleep-related hallucinations or cataplexy WAKE-RELATED DETAILS He does not work. He does have difficulty with memory or concentration. He denies falling asleep or dozing off when driving. He does take naps. Frequency: daily, Duration: 1 hr usually, but could be longer. Naps are not refreshing. He does not drink caffeinated beverages. He has lost 20 pounds since 1 yr. Patient Questionnaires Sleep Scores 09/09/2018 PHQ-9 Score 0 04/19/2022 PROMIS Global Health - (T-Scores - the mean of general population = 50. Five points is a clinically meaningful difference.) Physical T-Score 29.6 Mental T-Score 33.8 PAST TREATMENTS: None PRIOR SLEEP STUDIES: None OTHER RELEVANT LABS AND STUDIES: 10/10/23 Echo EF 60% Latest Reference Range AND Units 07/30/19 09:58 06/26/22 14:24 Ferritin 30.3 - 565.7 ng/mL 37.0 29.7 (L) (L): Data is abnormally low Latest Reference Range AND Units 07/28/19 07:37 08/13/19 07:43 06/26/22 14:24 07/10/22 10:41 08/21/22 10:05 07/20/24 08:25 Iron 41 - 186 ug/dL 52 49 40 (L) 51 74 79 (L): Data is abnormally low PAST MEDICAL HISTORY Diagnosis Date Acute right-sided [...] Chronic sinusitis Claudication (HCC) 06/04/2017 PVR's normal. Johan (more content not included)... Normal [facility] CNOVon 10-07-2024 CNOV Office Visit (FAMPWS ) MICHAEL BATES ([id number]) 1955 M Date Time Provider Department 10/07/24 9:20 AM MARTHA BOSTON FAMPWS During your visit today, we recorded the following information about you: Temperature Pulse Respiration Blood pressure 98.5 degrees 83/minute 16/minute 128/70 Weight 78.5 kg Martha Boston PA-C 10/07/2024 9:53 AM Signed Chief Complaint Patient presents with: Head Pain: X 1 week HPI Michael Bates is a 69 year old male who presents here today for headache.. Patient reports a new headache that isn't similar to ones he has had in the past. States he has one spot on the top of his head that is where the headache is located. States it feels like a knife is going into that spot. No point tenderness. Had a fall in July but denies head injury. Patient states he's not taking isosorbide right now. Is scheduled to see Dr. Paz (pain med). Past medical history, appointments, medications, allergies reviewed. [...] Date 2D ECHO (EXEP) 01/16/2017 EF=60%, 1+ MD and TI CATARACT EXTRACTION HX Left 10/2019 [...] Allergies ALLERGIES Allergen Reactions Florinef [Fludrocor* Angioedema Losartan Angioedema Perfumes Other: See Comments sneezing Ranexa [Ranolazine] Other: See Comments Headache, nausea and nose bleed Current Medications Current Outpatient Medications on File Prior to V (more content not included)... Normal [facility]07[facility] MICHAEL BATES ([id number]) 1955 M Date Time Provider Department 10/07/24 MATRHA BOSTON [facility] During your visit today, we recorded the following information about you: Martha Boston PA-C 10/07/2024 1:17 PM Signed Let patient know that his MRI is benign. See if patient is willing to return to neuro for management or if he prefers to wait and see pain medicine? He has very mild thickening of the left maxillary sinus and a small right maxillary retention cyst. these would not be causing the type of headache he is currently experiencing. If he is willing, he could trial OTC flonase to help treat any sinus symptoms. It's just unlikely that this will help his headache symptom. HOANG Candelario Sherill A, LPN 10/07/2024 2:21 PM Signed Pt notified of results and instructions. Pt verbalizes understanding. Pt prefers just to see pain medicine for now. Does not want to try OTC Flonase. States he gets thrush from nasal sprays. KAITLYN Gandara Rayanne, PA-C 10/07/2024 2:28 PM Signed Noted. Allergies As of Date: 10/07/2024 Noted Allergy Reaction FLORINEF (FLUDROCORTISONE) 04/25/2022 18 - Angioedema LOSARTAN 10/24/2023 18 - Angioedema PERFUMES 01/20/2012 14 - Other: See Comments Comments: sneezing RANEXA (RANOLAZINE) 09/06/2024 14 - Other: See Comments Comments: Headache, nausea and nose bleed Date Reviewed: 10/07/2024 Reviewed by: Luis E Agudelo LPN - Fully Assessed Reason for Visit: Results [95] Prescriptions as of 10/07/2024 - iv contrast (will be provided with radiology test) MRI Brain Inject, intravenously, once for 1 dose.No IV access, insert saline lock prior to beginning of sedation, infusion, injection of imaging exam.Discontinue saline lock post exam. If Pt. has a central line or IVAD, may access for administration according to line specific nursing protocol.Once exam is complete flush line and de-access according to line specific nursing protocol in the MR contrast administration guidelines link - metFORMIN ER (GLUCOPHAGE XR) 500 mg 24 hr tablet Take 2 tablets by mouth two times a day. - isosorbide mononitrate ER (IMDUR) 30 mg 24 hr tablet Take 1 tablet by mouth once daily. Per Cardio: [facility] - empagliflozin (JARDIANCE) 10 mg tablet Take 1 tablet by mouth once daily. Take 1 tablet once daily in the morning - Zinc Gluconate 50 mg tablet Take 50 mg by mouth once daily. - ferrous sulfate 325 mg (65 mg iron) tablet Take 1 tablet by mouth two times a day with meals. - amLODIPine (NORVASC) 10 mg tablet Take 1 tablet by mouth once daily. Per [facility] - atorvastatin (LIPITOR) 80 mg tablet Take 1 tablet by mouth once daily. Managed by cardiology, Dr. Kern - omeprazole (PRILOSEC) 40 mg capsule Take 1 capsule by mouth once daily. Per [facility] - carvedilol (COREG) 3.125 mg tablet Take 1 tablet by mouth two times a day. [facility] - ticagrelor (BRILINTA) 90 mg tablet Take 1 tablet by mouth two times a day. Per [facility] - docosahexaenoic acid/epa (FISH OIL ORAL) Take by mouth as directed. - Blood-Glucose Meter monitoring kit Glucose Meter of Choice - Kit - Dx: Type 2 DM - Uncontrolled E11.65 - Lancets lancets Test blood sugar(s) 2 times daily. Dx: Type 2 DM - Uncontrolled E11.65 Insulin: No - blood sugar diagnostic (BLOOD GLUCOSE TEST) test strip Test blood sugar(s) 2 times daily. Dx: Type 2 DM - Uncontrolled E11.65 Insulin: No - nitroglycerin sublingual (NITROSTAT) 0.4 mg SL tablet Dissolve 1 tablet under the tongue every 5 minutes as needed for chest pain. - aspirin, enteric coated (ECOTRIN LOW STRENGTH) 81 mg EC tablet Take 1 tablet by mouth once daily. - Blood Pressure Monitor kit 1 Each once daily. 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] 12/04/2007 Unspecified pruritic disorder [L29.9] 03/02/2009 04/12/2020 Lumbago [M54.50] 02/09/2010 Sciatica [M54.30] 02/09/2010 Neck sprain and strain [S13.9XXA] 07/30/2010 08/30/2010 Other physical therapy [[id number]] 08/16/2010 08/30/2010 Essential hypertension, benign [I10] 01/17/2012 DDD (degenerative disc disease), cervical [M50.*01/20/2012 Cervical spondylosis [M47.812] 01/20/2012 Chronic sinusitis [J32.9] Hyperlipidemia [E78.5] 08/04/2015 Mixed hyperlipidemia [E78.2] 08/04/2015 Lumbar radiculopathy [M54.16] Chronic post-traumatic headache [G44.329] 08/04/2015 Bilateral occipital neuralgia [M54.81] 08/04/2015 Seborrheic dermatitis [L21.9] 08/04/2015 Elevated LFTs [R79.89 (more content not included)... Normal [facility] CREATININE BLDOrdered By: Lois Rojo on 10-07-2024 Creatinine [Mass/Vol] 0.73 mg/dL 0.73 - 1.22 mg/dL [facility] GFR/1.73 sq M.predicted among non-blacks MDRD (S/P/Bld) [Vol rate/Area] 97 mL/min/{1.73_m2} - PINF [facility] Comment on above: Estimated Glomerular Filtration Rate (eGFR) is calculated using the 2020 CKD-EPI creatinine equation. This equation utilizes serum creatinine, sex, and age as parameters. The creatinine assay has traceable calibration to isotope dilution-mass spectrometry. Refer to KDIGO guidelines for clinical interpretation. In patients with unstable renal function, e.g. those with acute kidney injury, the eGFR may not accurately reflect actual GFR. Interpretation and review of laboratory results Normal [facility] CREATININE BLDon 10-07-2024 Creatinine [Mass/Vol] 0.73 mg/dL Normal 0.73-1.22 [facility] Comment on above: Order Comment: Speci men Type: BLOOD SPECIMENOrdering Facility: [facility] Address: [address] [place] [address] Performed By: #### C RET1 ####[facility] [id number] [address] [place] [facility] Creatinine and Glomerular filtration rate.predicted panel (S/P/Bld) 97 mL/min/1.73m??? Normal >=60 [facility] Comment on above: Order Comment: Speci men Type: BLOOD SPECIMENOrdering Facility: [facility] Address: [address] [place] [address] Result Comment: Abril mated Glomerular Filtration Rate (eGFR) is calculated using the 2020 CKD-EPI creatinine equation. This equation utilizes serum creatinine, sex, and age as parameters. The creatinine assay has traceable calibration to isotope dilution-mass spectrometry. Refer to KDIGO guidelines for clinical interpretation. In patients with unstable renal function, e.g. those with acute kidney injury, the eGFR may not accurately reflect actual GFR. Performed By: #### C RET1 ####[facility] [id number] [address] [place] MR Brain WO and W contrast I Von 10-07-2024 IMPRESSION: No acute intracranial abnormality including no evidence of an acute parenchymal infarct. No mass or pathologic enhancement. Letter Sorting Machine Operator: PSCBlas Transcribe Date/Time: Oct 07 2024 11:54A Dictated by : WILLIAM LUNA DO This examination was interpreted and the report reviewed and electronically signed by: WILLIAM LUNA DO on Oct 07 2024 12:06PM [facility] DIVISION OF RADIOLOGY * * *Final Report* * * DATE OF EXAM: Oct 07 2024 11:35AM [facility] 0295 - MRI BRAIN WO/W IVCON / PROCEDURE REASON: multiple diagnoses * * * * Physician Interpretation * * * * EXAMINATION: MRI BRAIN WO/W IVCON CLINICAL HISTORY: Thunderclap headache New onset headache TECHNIQUE: Routine brain MRI protocol without and with contrast including diffusion images. MQ: MRBWOW_2 Contrast: 7.5 mL Elucirem IV COMPARISON: Head CT 04/05/2022, head MRI 10/19/2020 RESULT: Acute Change: There is no evidence of restricted diffusion to suggest an acute infarct. Hemorrhage: No evidence of prior parenchymal hemorrhage on the susceptibility weighted images. Mass Lesion/ Mass Effect: No evidence of an intracranial mass or extra-axial fluid collection. No abnormal parenchymal or leptomeningeal enhancement is noted following contrast administration. No significant mass effect. Chronic Change: Scattered punctate foci of increased T2 and FLAIR signal are noted in the supratentorial white matter which is a nonspecific finding, but likely represents minimal chronic microvascular ischemia. Parenchyma: No significant volume loss for age. The brain parenchyma is otherwise within normal limits of signal intensity and morphology. Ventricles: Normal caliber and morphology. Skull Base: Hypothalamic and pituitary region are grossly normal. Craniocervical junction is normal. No significant marrow replacement process. Vasculature: Major intracranial arterial structures, and dural venous sinuses show typical flow void, suggesting patency by spin echo criteria. Other: Minimal mucosal thickening in the left maxillary antrum. Small mucous retention cyst in the right maxillary antrum. The orbits and extracranial soft tissues are unremarkable. DIVISION OF RADIOLOGY Provider, [facility] - 10/07/2024 * * *Final Report* * * DATE OF EXAM: Oct 07 2024 11:35AM [facility] 0295 - MRI BRAIN WO/W IVCON / PROCEDURE REASON: multiple diagnoses * * * * Physician Interpretation * * * * EXAMINATION: MRI BRAIN WO/W IVCON CLINICAL HISTORY: Thunderclap headache New onset headache TECHNIQUE: Routine brain MRI protocol without and with contrast including diffusion images. MQ: MRBWOW_2 Contrast: 7.5 mL Elucirem IV COMPARISON: Head CT 04/05/2022, head MRI 10/19/2020 RESULT: Acute Change: There is no evidence of restricted diffusion to suggest an acute infarct. Hemorrhage: No evidence of prior parenchymal hemorrhage on the susceptibility weighted images. Mass Lesion/ Mass Effect: No evidence of an intracranial mass or extra-axial fluid collection. No abnormal parenchymal or leptomeningeal enhancement is noted following contrast administration. No significant mass effect. Chronic Change: Scattered punctate foci of increased T2 and FLAIR signal are noted in the supratentorial white matter which is a nonspecific finding, but likely represents minimal chronic microvascular ischemia. Parenchyma: No significant volume loss for age. The brain parenchyma is otherwise within normal limits of signal intensity and morphology. Ventricles: Normal caliber and morphology. Skull Base: Hypothalamic and pituitary region are grossly normal. Craniocervical junction is normal. No significant marrow replacement process. Vasculature: Major intracranial arterial structures, and dural venous sinuses show typical flow void, suggesting patency by spin echo criteria. Other: Minimal mucosal thickening in the left maxillary antrum. Small mucous retention cyst in the right maxillary antrum. The orbits and extracranial soft tissues are unremarkable. IMPRESSION IMPRESSION: No acute intracranial abnormality including no evidence of an acute parenchymal infarct. No mass or pathologic enhancement. Letter Sorting Machine Operator: FAWN Transcribe Date/Time: Oct 07 2024 11:54A Dictated by : WILLIAM LUNA DO This examination was interpreted and the report reviewed and electronically signed by: WILLIAM LUNA DO on Oct 07 2024 12:06PM EST [facility] Radiology Study observation (narrative) [facility] MR Brain WO and W contrast I VOrdered By: [facility]cf Provider on 10-07-2024 [facility] MRI BRAIN WO/W IVCONon 10-07 MRI BRAIN WO/W IVCON * * *Final Report* * * DATE OF EXAM: Oct 07 2024 11:35AM [facility] 0295 - MRI BRAIN WO/W IVCON / PROCEDURE REASON: multiple diagnoses * * * * Physician Interpretation * * * * EXAMINATION: MRI BRAIN WO/W IVCON CLINICAL HISTORY: Thunderclap headache New onset headache TECHNIQUE: Routine brain MRI protocol without and with contrast including diffusion images. MQ: MRBWOW_2 Contrast: 7.5 mL Elucirem IV COMPARISON: Head CT 04/05/2022, head MRI 10/19/2020 RESULT: Acute Change: There is no evidence of restricted diffusion to suggest an acute infarct. Hemorrhage: No evidence of prior parenchymal hemorrhage on the susceptibility weighted images. Mass Lesion/ Mass Effect: No evidence of an intracranial mass or extra-axial fluid collection. No abnormal parenchymal or leptomeningeal enhancement is noted following contrast administration. No significant mass effect. Chronic Change: Scattered punctate foci of increased T2 and FLAIR signal are noted in the supratentorial white matter which is a nonspecific finding, but likely represents minimal chronic microvascular ischemia. Parenchyma: No significant volume loss for age. The brain parenchyma is otherwise within normal limits of signal intensity and morphology. Ventricles: Normal caliber and morphology. Skull Base: Hypothalamic and pituitary region are grossly normal. Craniocervical junction is normal. No significant marrow replacement process. Vasculature: Major intracranial arterial structures, and dural venous sinuses show typical flow void, suggesting patency by spin echo criteria. Other: Minimal mucosal thickening in the left maxillary antrum. Small mucous retention cyst in the right maxillary antrum. The orbits and extracranial soft tissues are unremarkable. IMPRESSION: No acute intracranial abnormality including no evidence of an acute parenchymal infarct. No mass or pathologic enhancement. Letter Sorting Machine Operator: FAWN Transcribe Date/Time: Oct 07 2024 11:54A Dictated by : WILLIAM LUNA DO This examination was interpreted and the report reviewed and electronically signed by: WILLIAM LUNA DO on Oct 07 2024 12:06PM EST [id number] Normal [facility] L3410.9999on 09-24-2024 [facility] Misc. Normal [facility] Comment on above: Order Comment: [id number] TRAMADOL Result Comment: TEST RESULTS LIMITS Tramadol Tramadol Screen, Urine Negative ng/mL Peworn=388 TESTING PERFORMED AT [facility]. ORIGINAL REPORT ON FILE IN LAB CONTAINS ADDITIONAL TEST SITE INFORMATION. Performed By: #### L 3410.9999 #### [facility] [address] [place], [place], [address] L3410.9999on 09-23-2024 [facility] Misc. COMMENT Normal . [facility] Comment on above: Order Comment: [id number] 3 URINE TOX Result Comment: Test Ordered: [id number] 6+Oxycodone-Bund Amphetamines, Urine Negative ng/mL UI Reference Range: Oshsuf=6098 Amphetamine test includes Amphetamine and Methamphetamine. Barbiturate Negative ng/mL UI Reference Range: Llzkly=527 Benzodiazepines Negative ng/mL UI Reference Range: Zaymln=764 Cannabinoids Negative ng/mL UI Reference Range: Cutoff=20 Cocaine (Metabolite) Negative ng/mL UI Reference Range: Ufkyao=145 Opiates Negative ng/mL UI Reference Range: Cxdriq=420 Opiate test includes Codeine, Morphine, Hydromorphone, Hydrocodone. Oxycodone/Oxymorphone, Urine Negative ng/mL UI Reference Range: Jrhyqq=743 Test includes Oxycodone and Oxymorphone Effective November 29, 2024, this test will be discontinued. Please contact your [facility] district representative for suggested replacement test options. Performed at: [facility] [address], [place] [id number] Tech Ed Teacher: Keith Peña PhD, Phone: [phone] Performed at: [address] [id number] Tech Ed Teacher: Grant Antonio PhD, Phone: [phone] Performed By: #### L 3410.9999, L505.5000 #### [facility] [address] [place], [place], [address] Cerv Spine 2 or 3 Viewson Cerv Spine 2 or 3 Views [facility] Imaging Services [address] [place] [address] Cerv Spine 2 or 3 Views MR#: [id number] Acct: [id number] Name: MICHAEL BATES Jr. Rep #: [id number] : 1955 M 69 From: Brain oconnell DO PCP: Dr. Nadir Grady MD Status: REG CLI Study: Cerv Spine 2 or 3 Views Date of Exam: 09/20/24 Exam# [id number] Ordering Dr: Hany Paz [place] [id number] EXAM: XR CERVICAL SPINE, 4 OR 5 VIEWS CLINICAL INDICATION: CERVICAL SPONDYLOSIS TECHNIQUE: Frontal, lateral and bilateral oblique views of the cervical spine. COMPARISON: CT cervical spine, 01/16/2023 FINDINGS: VERTEBRAE: Multilevel facet, uncovertebral joint, and endplate osteophytosis. Preserved vertebral body height. No acute fracture. No spondylolisthesis. Preservation of the normal cervical lordosis. DISC SPACES: Multilevel intervertebral disc height loss. At least mild osseous encroachment of multiple neural foramina bilaterally. SOFT TISSUES: No significant abnormality. No prevertebral soft tissue widening. LUNG APICES: Clear. RAD/Cerv Spine 2 or 3 Views IMPRESSION: Multilevel degenerative changes correlated with the prior examination. No acute findings. Electronically Signed: Brain James DO at 21:56 EST , CC: Dr. Nadir Grady MD; Dr. Hany Paz MD Letter Sorting Machine Operator: Signed Normal [facility] Methadone, urineOrdered By: Hany Paz on 09-20-2024 Urine Methadone Screen Negative < 300 ng/mL [facility] No Panel InformationOrdered By: Hany Paz on 09-20-2024 Miscellaneous Test See comment [facility] Comment on above: TEST RESULTS LIMITST ramadol Tramadol Screen, Urine Negative ng/mL Nmkylx=818 TESTING PERFORMED AT [facility]. ORIGINAL REPORT ON FILE IN LAB CONTAINS ADDITIONAL TEST SITE INFORMATION. Urine Drug Screen Comment [facility] Comment on above: CONFIRMATORY TESTING FOR ALL POSITIVE URINE DRUG SCREENRESULTS WILL ONLY BE SENT OUT UPON PHYSICIAN ORDER. VISTA Urine Drug Screen methods provide only preliminaryanalytical test results. A more specific alternate chemicalmethod must be used in order to obtain a confirmedanalytical result. Gas chromatography/mass spectrometery(GC/MS) is the preferred confirmatory method. Clinicalconsideration and professional judgement should be appliedto any drug of abuse test result, particularly whenpreliminary positive results are used. URINE TCA TESTING MUST BE ORDERED SEPARATELY. USE TESTMNEMONIC: UTCA Quantitative urine opiates m easurementOrdered By: Hany Paz on 09-20-2024 Opiates Ql (U) Negative < 300 ng/mL [facility] Urine Drug Screen (VISTA)on 09-20-2024 AMPHETAMINES Negative Normal <1000 ng/mL [facility] Comment on above: Order Comment: RUN L OWEST TEST UNK Performed By: #### L 3410.9999, L505.5000 #### [facility] [address] [facility] [address] BARBITIURATES Negative Normal < 200 ng/mL [facility] Comment on above: Order Comment: RUN L OWEST TEST UNK Performed By: #### L 3410.9999, L505.5000 #### [facility] [address] [place], [place], [id number] BENZODIAZIPINE Negative Normal < 200 ng/mL [facility] Comment on above: Order Comment: RUN L OWEST TEST UNK Performed By: #### L 3410.9999, L505.5000 #### [facility] [address] [place], [address] COCAINE Negative Normal < 300 ng/mL [facility] Comment on above: Order Comment: RUN L OWEST TEST UNK Performed By: #### L 3410.9999, L505.5000 #### [facility] [address] [place], [address] ECSTACY Negative Normal < 500 ng/mL [facility] Comment on above: Order Comment: RUN L OWEST TEST UNK Performed By: #### L 3410.9999, L505.5000 #### [facility] [address] [facility] [address] METHADONE Negative Normal < 300 ng/mL [facility] Comment on above: Order Comment: RUN L OWEST TEST UNK Performed By: #### L 3410.9999, L505.5000 #### [facility] [address] [place], [address] OPIATES Negative Normal < 300 ng/mL [facility] Comment on above: Order Comment: RUN L OWEST TEST UNK Performed By: #### L 3410.9999, L505.5000 #### [facility] [address] [place], [address] PCP Negative Normal < 25 ng/mL [facility] Comment on above: Order Comment: RUN L OWEST TEST UNK Performed By: #### L 3410.9999, L505.5000 #### [facility] [address] [place], [address] THC Negative Normal < 50 ng/mL [facility] Comment on above: Order Comment: RUN L OWEST TEST UNK Performed By: #### L 3410.9999, L505.5000 #### [facility] [address] [place], [address] VISTA UDS PH 7 Normal [facility] Comment on above: Order Comment: RUN L OWEST TEST UNK Performed By: #### L 3410.9999, L505.5000 #### [facility] [address] [place], [address] Urine amphetamine measuremen tOrdered By: Hany Paz on 09-20-2024 Amphetamines Ql (U) Negative <1000 ng/mL [facility] Urine barbiturates measureme ntOrdered By: Hany Paz on 09-20-2024 Urine Barbiturates Screen Negative < 200 ng/mL [facility] Urine benzodiazepine levelOr dered By: Hany Paz on 09-20-2024 Benzodiazepines Ql (U) Negative < 200 ng/mL [facility] Urine cocaine levelOrdered B y: Hany Paz on 09-20-2024 Cocaine Ql (U) Negative < 300 ng/mL [facility] Urine xxplt-5-ehxpbwupvwnehz abinol (THC) measurementOrdered By: Hany Paz on 09-20-2024 Cannabinoids Screen Ql (U) Negative < 50 ng/m L [facility] Urine methylenedioxymethamph etamine (MDMA) measurementOrdered By: Hany Paz on 09-20-2024 MDMA (Ecstasy) Screen Negative < 500 ng/mL [facility] Urine phencyclidine (PCP) de tectionOrdered By: Hany Paz on 09-20-2024 Phencyclidine Ql (U) Negative < 25 ng/mL [facility] Visit Reporton Cardiology Visit Report [facility] [address] [place], [place] [address] OFFICE VISIT Date of Service: 09/08/24 MR#: [id number] Acct: [id number] Name: MICHAEL BATES JrMukesh Rep #: [id number] : 1955 Provider: CAMELIA Hurd Age/Sex: 69/M Location: [facility] Status: Signed HPI HPI History of Present Illness Details: Michael Bates is a 69-year-old old man with a history of coronary artery disease who presents for a follow-up evaluation. He does have a history of coronary artery disease with stenting to his mid LAD and ramus in 2016, ostial left circumflex in May 2020 and Jul 2021, proximal circumflex in October 2020, and mid RCA in April 2021. He also has a history of hypertension, hyperlipidemia, syncope and carotid artery stenosis. As you remember he had been having a lot of syncopal episodes and was referred to neurology and eventually had a loop recorder placed for syncope evaluation which thus far has not demonstrated any significant abnormalities. Due to his recurrent syncope he had been placed on fludrocortisone but said that he had an allergic reaction to it and so was put on midodrine. He continues to complain of chest discomfort and in December 2021 underwent a stress test which was negative for ischemia and subsequently in January of the same year underwent a cardiac catheterization which demonstrated diffuse coronary disease with previously placed stents noted in the LAD diagonal and ramus, circumflex artery and right coronary artery were all noted to be patent. Diffuse distal disease was noted no high-grade stenosis was present. He had been started on Ranexa which was discontinued due to nausea. He had a stress test in June 2023 that was negative for ischemia. He was admitted to [facility] on October 09, 2023 with chest discomfort. EKG had demonstrated ST depressions in V5 and V6. Troponins were negative. He did have an echocardiogram which demonstrated an ejection fraction of 60%.He did undergo a diagnostic heart catheterization which demonstrated 50% proximal LAD stenosis, 50 to 60% mid LAD stenosis, 70% proximal OM2 stenosis unchanged from previous study, 95% calcified proximal RCA and 90% calcified mid RCA and 70% 6 distal RCA. He underwent successful shockwave lithotripsy and stenting of his distal RCA. Patient was in the emergency room on October 15 for chest discomfort. Workup was negative. He did need to go use NTG for this. It did not work. He was cleaning the house. Rated the pain as a 4/10. It was to the left of his sternum. He was then in the emergency room on the for concerns over swelling in his tongue. He was advised to stop his losartan. We had increased his Ranexa to 1000 mg twice a day. Patient was in the hospital and December 2023 for chest pain. He did undergo a diagnostic stress test. This was negative for ischemia. At that time it was noted that he was on both Brilinta and Plavix. Plavix was discontinued. Pt was in the office at the end of July 2024, He does have chest pain that occurs daily, this is with walking, it is sharp. It can occur 3-4 times a day, he does not take NTG for this. He did undergo a diagnostic heart cath. He did have reinstent stenosis of his RCA, he did this stented. He states that he has not needed to use any NTG. When he would feel that his heart stops, this has improved. He still have chest pain with walking and when he is carrying things. He has decreased his activity because of the chest pain. Chest pain goes away at rest. Intake Vital Signs 07/28/24 08:11 08/27/24 09:40 09/08/24 12:53 Height 5 ft 10 in 5 ft 10 in 5 ft 10 in Weight: 177 lb BMI 25.4 BP 114/57 L Blood Pressure Location Lt brachial Position Sitting Respiration 18 Pulse 73 Pulse Source Monitor Pulse Oximetry (%) 94 Intake Visit Reasons: S/P [facility] 08/16 Cath Work Order Detailer Required: No Is patient in pain?: No Allergies fludrocortisone (From Florinef) Allergy (Severe, Verified 09/08/24 12:53) ANGIOEDEMA losartan Adverse Reaction (Severe, Verified 09/08/24 12:53) Angioedema iodine Adverse Reaction (Verified 09/08/24 12:53) unknown perfume Adverse Reaction (Verified 09/08/24 12:53) Other Medications ???Medication ???Instructions ???Recorded ???Confirmed ???Type aspirin 81 mg tablet,delayed 81 mg PO DAILY@0800 heart [facility] 09/13/13 09/08/24 History release omega 0-vfg-him-fish oil 1,000 mg 1,000 mg PO QDAY supplement 01/06/18 08/13/24 History (120 mg-180 mg) capsule (Fish Oil) ferrous sulfate 325 mg (65 mg 325 mg PO BID supplement 06/28/22 09/08/24 History iron) tablet ranolazine 1,000 mg 1,000 mg PO BID heart #60 tabs 10/30/23 09/08/24 Rx tablet,extended release,12 hr ticagrelor 90 mg tablet (Brilinta) 90 mg PO BID anti platelet #60 tabs 10/30/23 (more content not included)... Normal [facility] CNOVon 09-06-2024 CNOV Office Visit (FAMPWS ) MICHAEL BATES ([id number]) 1955 M Date Time Provider Department 09/06/24 2:40 PM [facility] your visit today, we recorded the following information about you: Pulse Respiration Blood pressure Weight 72/minute 18/minute 128/74 78 kg Nadir Grady MD 09/06/2024 9:34 PM Signed Chief Complaint Patient presents with: ED Follow-up HPI Michael Bates is a 69 year old male who presents here today for ER follow up Patient was seen 08/27/2024 for Chest pain/weakness/dehydrat ion. Testing showed elevated WBC and colonic diverticulosis. X-ray chest shows vague right lower lung density. Recommended CT scan. Testing in ER, stool was positive for Norovirus. Patient history, had a left heart cath 10/2023 and a coronary artery stent placed 08/16/2024. Patient sees Dr. Kern, however he did not reach out to cardiology that he was having the chest pain. In Oct 2023 patient had six stents placed: 3 Prox RCA, 1 mid RCA and two distal RCA. On 08/16/2024 he had another stent placed to the proximal RCA. Patient has had chest pain with activity that resolves with rest since having stents placed in 10/2023. The day he went to the ER on 08/27/2024 he had been at [employer] and noted shortness of breath, then when he went home he then started the diarrhea and the chest pain started so his brother took him to the ER. Since the ER visit he is still getting chest pain with activity and developed some coming into the office today but not enough to take a nitro and no shortness of breath and no recurrence of shortness of breath like when he was in [employer] on 08/27/2024. The weakness feeling he had been having has improved slightly. He sees Cardio on Friday this week. Patient is no longer having diarrhea. In the ER the provider said the chest x-ray was neg for acute issues but the read by radiology said vague RLL density possible infiltrate. Patient denies any cough since being the ER and not aware of any fevers. Slight chills at time. Patient has known cervical neck disease and bilateral occipital Neurologia. He ws seeing pain management at [facility] and had been receiving neck injections and botox injections but stopped going 2-3 years ago because he felt the last injection was not helpful. His chronic pain seems to have increased after a fall about a month ago. Past medical history, appointments, medications, allergies reviewed. [...] Date 2D ECHO (EXEP) 01/16/2017 EF=60%, 1+ MD and TI (more content not included)... [facility] MIC[facility]EL BATES ([id number]) 1955 M Date Time Provider Department 09/06/24 NADIR GRADY During your visit today, we recorded the following information about you: Nadir Grady MD 09/06/2024 11:17 PM Signed Let patient know his repeat chest x-ray was normal. Meg Miller MA 09/07/2024 8:25 AM Signed Pt notified and verbalized understanding Meg Miller MA Allergies As of Date: 09/06/2024 Noted Allergy Reaction FLORINEF (FLUDROCORTISONE) 04/25/2022 18 - Angioedema LOSARTAN 10/24/2023 18 - Angioedema PERFUMES 01/20/2012 14 - Other: See Comments Comments: sneezing RANEXA (RANOLAZINE) 09/06/2024 14 - Other: See Comments Comments: Headache, nausea and nose bleed Date Reviewed: 09/06/2024 Reviewed by: Nadir Grady MD - Fully Assessed Reason for Visit: Results [95] Prescriptions as of 09/07/2024 - metFORMIN ER (GLUCOPHAGE XR) 500 mg 24 hr tablet Take 2 tablets by mouth two times a day. - isosorbide mononitrate ER (IMDUR) 30 mg 24 hr tablet Take 1 tablet by mouth once daily. Per Cardio: [facility] - empagliflozin (JARDIANCE) 10 mg tablet Take 1 tablet by mouth once daily. Take 1 tablet once daily in the morning - Zinc Gluconate 50 mg tablet Take 50 mg by mouth once daily. - ferrous sulfate 325 mg (65 mg iron) tablet Take 1 tablet by mouth two times a day with meals. - amLODIPine (NORVASC) 10 mg tablet Take 1 tablet by mouth once daily. Per [facility] - atorvastatin (LIPITOR) 80 mg tablet Take 1 tablet by mouth once daily. Managed by cardiology, Dr. Kern - omeprazole (PRILOSEC) 40 mg capsule Take 1 capsule by mouth once daily. Per [facility] - carvedilol (COREG) 3.125 mg tablet Take 1 tablet by mouth two times a day. Per [facility] - ticagrelor (BRILINTA) 90 mg tablet Take 1 tablet by mouth two times a day. Per [facility] - docosahexaenoic acid/epa (FISH OIL ORAL) Take by mouth as directed. - Blood-Glucose Meter monitoring kit Glucose Meter of Choice - Kit - Dx: Type 2 DM - Uncontrolled E11.65 - Lancets lancets Test blood sugar(s) 2 times daily. Dx: Type 2 DM - Uncontrolled E11.65 Insulin: No - blood sugar diagnostic (BLOOD GLUCOSE TEST) test strip Test blood sugar(s) 2 times daily. Dx: Type 2 DM - Uncontrolled E11.65 Insulin: No - nitroglycerin sublingual (NITROSTAT) 0.4 mg SL tablet Dissolve 1 tablet under the tongue every 5 minutes as needed for chest pain. - aspirin, enteric coated (ECOTRIN LOW STRENGTH) 81 mg EC tablet Take 1 tablet by mouth once daily. - Blood Pressure Monitor kit 1 Each once daily. 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] 12/04/2007 Unspecified pruritic disorder [L29.9] 03/02/2009 04/12/2020 Lumbago [M54.50] 02/09/2010 Sciatica [M54.30] 02/09/2010 Neck sprain and strain [S13.9XXA] 07/30/2010 08/30/2010 Other physical therapy [QYT2107] 08/16/2010 08/30/2010 Essential hypertension, benign [I10] 01/17/2012 DDD (degenerative disc disease), cervical [M50.*01/20/2012 Cervical spondylosis [M47.812] 01/20/2012 Chronic sinusitis [J32.9] Hyperlipidemia [E78.5] 08/04/2015 Mixed hyperlipidemia [E78.2] 08/04/2015 Lumbar radiculopathy [M54.16] Chronic post-traumatic headache [G44.329] 08/04/2015 Bilateral occipital neuralgia [M54.81] 08/04/2015 Seborrheic dermatitis [L21.9] 08/04/2015 Elevated LFTs [R79.89] 08/05/2015 Carotid stenosis, asymptomatic, bilateral [I65.*08/09/2015 Neck pain, chronic [M54.2, G89.29] 10/16/2015 Cervicogenic headache [G44.86] 10/16/2015 DDD (degenerative disc disease), lumbar [M51.36*06/30/2016 Radicular pain of right lower extremity [M54.10]07/09/2016 Acute right-sided low back pain with right-side*07/09/2016 Well adult exam [Z00.00] 10/03/2016 04/12/2020 Benign non-nodular prostatic hyperplasia withou*10/03/2016 Disorder of prostate [N42.9] 10/03/2016 Type 2 diabetes mellitus with diabetic neuropat*10/07/2016 Bilateral chronic knee pain [M25.561, M25.562, *10/10/2016 Coronary atherosclerosis due to lipid rich plaq*01/20/2017 S/P drug eluting coronary stent placement [Z95.*01/20/2017 Diabetic eye exam (HCC) [Z01.00, E11.9] 03/19/2017 Leg pain, bilateral [M79.604, M79.605] 06/04/2017 Medicare annual wellness visit, subsequent [Z00*06/12/2018 GERD without esophagitis [K21.9] 06/12/2018 Neuropathy (HCC) [G62.9] 06/12/2018 Primary insomnia [F51.01] 03/02/2019 Abnormal dreams [F51.8] 03/02/2019 Medication management [Z79.899] 03/02/2019 Illiteracy [Z55.0] 10/09/2020 Anemia of chronic d (more content not included)... Normal [facility] XR CHEST 2V FRONTAL/LATon XR CHEST 2V FRONTAL/LAT * * *Final Repor t* * * DATE OF EXAM: Sep 06 2024 4:52PM WOX 5291 - XR CHEST 2V FRONTAL/LAT / PROCEDURE REASON: Abnormal chest x-ray * * * * Physician Interpretation * * * * EXAMINATION: CHEST RADIOGRAPH (2 VIEW FRONTAL and LATERAL) CLINICAL HISTORY: Abnormal chest x-ray MQ: XC2_6 EXAM DATE/TIME: 09/06/2024 4:52 PM COMPARISON: Chest x-ray 06/25/2022. Comparison is made with a report from a recent chest x-ray obtained 08/27/2024 which describes a vague right lower lobe density. The prior images are not available for comparison. RESULT: Lines, tubes, and devices: None. Lungs and pleura: No consolidation. No lung mass. No pleural effusion. No pneumothorax. Cardiomediastinal silhouette: Normal cardiomediastinal silhouette. Bones and soft tissues: Unremarkable. IMPRESSION: No acute radiographic abnormality. Letter Sorting Machine Operator: [facility] Transcribe Date/Time: Sep 06 2024 4:57P Dictated by : LIZA ARDON MD This examination was interpreted and the report reviewed and electronically signed by: LIZA ARDON MD on Sep 06 2024 4:59PM EST [id number] Normal [facility] XR Chest PA and Lateralon IMPRESSION: No acute radiographic abnormality. Letter Sorting Machine Operator: [facility] Transcribe Date/Time: Sep 06 2024 4:57P Dictated by : LIZA ARDON MD This examination was interpreted and the report reviewed and electronically signed by: LIZA ARDON MD on Sep 06 2024 4:59PM EST DIVISION OF RADIOLOGY * * *Final Report* * * DATE OF EXAM: Sep 06 2024 4:52PM WOX 5291 - XR CHEST 2V FRONTAL/LAT / PROCEDURE REASON: Abnormal chest x-ray * * * * Physician Interpretation * * * * EXAMINATION: CHEST RADIOGRAPH (2 VIEW FRONTAL & LATERAL) CLINICAL HISTORY: Abnormal chest x-ray MQ: XC2_6 EXAM DATE/TIME: 09/06/2024 4:52 PM COMPARISON: Chest x-ray 06/25/2022. Comparison is made with a report from a recent chest x-ray obtained 08/27/2024 which describes a vague right lower lobe density. The prior images are not available for comparison. RESULT: Lines, tubes, and devices: None. Lungs and pleura: No consolidation. No lung mass. No pleural effusion. No pneumothorax. Cardiomediastinal silhouette: Normal cardiomediastinal silhouette. Bones and soft tissues: Unremarkable. DIVISION OF RADIOLOGY Provider, [facility] - 09/06/2024 * * *Final Report* * * DATE OF EXAM: Sep 06 2024 4:52PM WOX 5291 - XR CHEST 2V FRONTAL/LAT / PROCEDURE REASON: Abnormal chest x-ray * * * * Physician Interpretation * * * * EXAMINATION: CHEST RADIOGRAPH (2 VIEW FRONTAL & LATERAL) CLINICAL HISTORY: Abnormal chest x-ray MQ: XC2_6 EXAM DATE/TIME: 09/06/2024 4:52 PM COMPARISON: Chest x-ray 06/25/2022. Comparison is made with a report from a recent chest x-ray obtained 08/27/2024 which describes a vague right lower lobe density. The prior images are not available for comparison. RESULT: Lines, tubes, and devices: None. Lungs and pleura: No consolidation. No lung mass. No pleural effusion. No pneumothorax. Cardiomediastinal silhouette: Normal cardiomediastinal silhouette. Bones and soft tissues: Unremarkable. IMPRESSION IMPRESSION: No acute radiographic abnormality. Letter Sorting Machine Operator: FAWN Transcribe Date/Time: Sep 06 2024 4:57P Dictated by : LIZA ARDON MD This examination was interpreted and the report reviewed and electronically signed by: LIZA ARDON MD on Sep 06 2024 4:59PM EST [facility] Radiology Study observation (narrative) [facility] XR Chest PA and LateralOrder ed By: Ccf Provider on 09-06-2024 [facility] Ova and Parasites 8623on OP OVA AND PARASITES EXAM, ROUTINE These results were obtained using wet preparation(s) and trichrome stained smear. This test does not include testing for Crytosporidium parvum, Cyclospora, or Microsporidia. One negative specimen does not rule out the possibility of a parasitic infection. TESTING PERFORMED AT [facility]. ORIGINAL REPORT ON FILE IN LAB CONTAINS ADDITIONAL TEST SITE INFORMATION. Ova/Parasite Exam NO OVA, CYSTS, OR PARASITES FOUND. Normal [facility] Comment on above: Performed By: #### L 3410.9999, L505.5000 #### [facility] Laboratory [address] [facility] [place], [place], [address] 12 Lead EKGon 08-27-2024 12 Lead EKG [facility] Cardiovascular Services [address] [place] [address] 12 Lead EKG 08/27/24 0949 MR#: [id number] Acct: [id number] Name: MICHAEL BATES JrMukesh Rep #: [id number] : 1955 69 From: Jd Kern MD Attending Dr: Status: DEP ER Ordering Dr: Juan Luis Rubio DO Date: 08/27/24 Location: ED Sex: M C Admitted: Test Reason : CP/SOB Blood Pressure : */* mmHG Vent. Rate : 92 BPM Atrial Rate : 92 BPM P-R Int : 138 ms QRS Dur : 78 ms QT Int : 342 ms P-R-T Axes : 52 46 16 degrees QTcB Int : 422 ms Normal sinus rhythm Nonspecific ST abnormality Abnormal ECG Confirmed by LIYA POTTER, JD ([id number]), editorial intern KAMI QUINTANA ([id number]) on 08/30/2024 6:42:13 AM Referred By: ES Confirmed By: JD KERN MD 08/30/24 0642 Date Jd Kern MD CC: Dr. Juan Luis Rubio DO; Dr. Nadir Grady MD Signed Normal [facility] Abdomen/Pelvis without Conto n 08-27-2024 Abdomen/Pelvis without Cont [facility] Imaging Services [address] [facility] [address] [place], [place] [address] Abdomen/Pelvis without Cont MR#: [id number] Acct: [id number] Name: MICHAEL BATES JrMueksh Rep #: [id number] : 1955 M 69 From: Pop Nuno MD PCP: Dr. Nadir Grady MD Status: REG ER Study: Abdomen/Pelvis without Cont Date of Exam: 08/02 03/24 Exam# [id number] Ordering Dr: Juan Luis Rubio DO [id number] STUDY: CT ABDOMEN AND PELVIS WITHOUT CONTRAST REASON FOR EXAM: Male, 69 years old. Colitis RADIATION DOSAGE (If Supplied By Facility): CTDIvol = ( 9.80 ) mGy, DLP = ( 477.23 ) mGycm TECHNIQUE: Transaxial images were obtained from the dome of the diaphragm to the symphysis pubis without oral contrast, and without intravenous contrast. Sagittal and coronal images were reconstructed. Individualized dose optimization techniques were used for this CT. COMPARISON: None. FINDINGS: The visualized lung bases are unremarkable. The visualized portions of the heart are within normal limits. Normal liver. Normal gallbladder and extrahepatic biliary system. Normal spleen. Normal pancreas. Normal bilateral adrenal glands. Normal right kidney. Normal left kidney. Normal visualized stomach. There is mild fluid distention of small intestine. There are multiple colonic diverticula consistent with diverticulosis. There is non-visualization of the appendix. There is diffuse atherosclerotic calcification of the abdominal aorta, without a demonstrated aneurysm. Normal inferior vena cava. Normal retroperitoneum. Normal urinary bladder. There is no free fluid in the abdomen or pelvis. Normal abdominal wall. There is scoliosis and degenerative change of the spine. CT/Abdomen/Pelvis without Cont IMPRESSION: Colonic diverticulosis. Small bowel distention with ileus or enteritis. Electronically Signed: Pop Nuno MD at 12:00 EST , CC: Dr. Juan Luis Rubio DO; Dr. Nadir Grady MD Letter Sorting Machine Operator: Signed Normal [facility] Absolute neutrophil countOrd ered By: ED PROVIDER on 08-27-2024 Neutrophils (Bld) [#/Vol] 13.7 10*3/uL High 2.0-7.7 [facility] Basic Metabolic Profile (BMP )on 08-27-2024 BUN/CRE 22.4 RATIO High 10-20 [facility] Comment on above: Order Comment: 89374 3 URINE TOX Performed By: #### L 3410.9999, L505.5000 #### [facility] Laboratory [address] [place], [address] CA,Total 10.0 mg/dL Normal 8.5-10.1 [facility] Comment on above: Order Comment: 27148 3 URINE TOX Performed By: #### L 3410.9999, L505.5000 #### [facility] Laboratory [address] [place], [address] Chloride [Moles/Vol] 101 mmol/L Normal 98-107 [facility] Comment on above: Order Comment: 57206 3 URINE TOX Performed By: #### L 3410.9999, L505.5000 #### [facility] [address] [place], [address] CO2 [Moles/Vol] 21.0 mmol/L Normal 21.0-32.0 [facility] Comment on above: Order Comment: 83718 3 URINE TOX Performed By: #### L 3410.9999, L505.5000 #### [facility] [address] [place], [address] Creatinine [Mass/Vol] 1.34 mg/dL High 0.70-1.30 [facility] Comment on above: Order Comment: 45237 3 URINE TOX Result Comment: The validity of the calculated GFR GFRAA in patients over 70 years has not been determined. Clinical correlation is essential. Performed By: #### L 3410.9999, L505.5000 #### [facility] [address] [place], [address] ECRCL 52.21 ml/min Normal [facility] Comment on above: Order Comment: 16495 3 URINE TOX Performed By: #### L 3410.9999, L505.5000 #### [facility] [address] [place], [address] EST GFR - AA 68 mL/min Normal >60 [facility] Comment on above: Order Comment: 32644 3 URINE TOX Result Comment: Afri can [place] GFR Calc Performed By: #### L 3410.9999, L505.5000 #### [facility] [address] [place], [address] GAP 11 Normal 5-15 [facility] Comment on above: Order Comment: 82913 3 URINE TOX Performed By: #### L 3410.9999, L505.5000 #### [facility] [address] [place], [address] GFR/1.73 sq M.predicted among non-blacks MDRD (S/P/Bld) [Vol rate/Area] 56 mL/min/{1.73_m2} Low >60 [facility] Comment on above: Order Comment: 27631 3 URINE TOX Result Comment: Non- GFR Calc Performed By: #### L 3410.9999, L505.5000 #### [facility] [address] [place], [address] Glucose [Mass/Vol] 234 mg/dL High 74-106 [facility] Comment on above: Order Comment: 14400 3 URINE TOX Result Comment: Gluc ose result greater than or equal to 200 mg/dL suggests DIABETES MELLITUS per A.D.A. criteria. Performed By: #### L 3410.9999, L505.5000 #### [facility] [address] [place], [address] Potassium [Moles/Vol] 4.2 mmol/L Normal 3.5-5.1 [facility] Comment on above: Order Comment: 30087 3 URINE TOX Performed By: #### L 3410.9999, L505.5000 #### [facility] [address] [place], [address] Sodium [Moles/Vol] 133 mmol/L Low 136-145 [facility] Comment on above: Order Comment: 95527 3 URINE TOX Performed By: #### L 3410.9999, L505.5000 #### [facility] [address] [place], [address] Urea nitrogen [Mass/Vol] 30 mg/dL High - [facility] Comment on above: Order Comment: 22459 3 URINE TOX Performed By: #### L 3410.9999, L505.5000 #### [facility] [address] [place], [address] Basophil percentageOrdered B y: ED PROVIDER on 08-27-2024 Basophils/100 WBC (Bld) 0.5 % 0-1 [facility] Bilirubin Test strip Ql (U)O rdered By: Juan Luis Rubio on 08-27-2024 Bilirubin Ql (U) Negative Negative [facility] Bilirubin directOrdered By: Juan Luis Rubio on 08-27-2024 Bilirubin.direct [Mass/Vol] 0.15 mg/dL 0.00-0.3 0 [facility] Bilirubin, totalOrdered By: Juan Luis Rubio on 08-27-2024 Bilirubin [Mass/Vol] 0.60 mg/dL 0.20-1.00 [facility] Comment on above: For patients on eltr ombopag therapy, use of Dimension [place] TBIL is not recommended. Blood urea nitrogen (BUN)/cr eatinine ratioOrdered By: Juan Luis Rubio on 08-27-2024 Urea nitrogen/Creatinine [Mass ratio] 22.4 mg/mg High - [facility] C. difficile DNA RIVER+probe Q l (Unsp spec)Ordered By: Juan Luis Rubio on 08-27-2024 Clostridioides difficile (PCR) [facility] CBC W/Diff, Automatedon 12-2 Absolute Lymph 1.06 X10 3/uL Normal 0.83-4.51 [facility] Comment on above: Performed By: #### L 3410.9999, L505.5000 #### [facility] [address] [place], [address] Absolute Neut 13.7 X10 3/uL High 2.0-7.7 [facility] Comment on above: Performed By: #### L 3410.9999, L505.5000 #### [facility] [address] [place], [address] Basophils/100 WBC (Bld) 0.5 % Normal 0-1 [facility] Comment on above: Performed By: #### L 3410.9999, L505.5000 #### [facility] [address] [place], [address] Eosinophils/100 WBC (Bld) 1.3 % Normal 0-5 [facility] Comment on above: Performed By: #### L 3410.9999, L505.5000 #### [facility] [address] [place], [address] Erythrocyte distribution width (RBC) [Ratio] 12.9 % Normal 11.6-14.6 [facility] Comment on above: Performed By: #### L 3410.9999, L505.5000 #### [facility] [address] [place], [address] Hematocrit (Bld) [Volume fraction] 44.8 % Normal 40-54 [facility] Comment on above: Performed By: #### L 3410.9999, L505.5000 #### [facility] [address] [place], [address] Hemoglobin (Bld) [Mass/Vol] 14.7 g/dL Normal 13.0-16. 5 [facility] Comment on above: Performed By: #### L 3410.9999, L505.5000 #### [facility] [address] [place], [address] IG% 0.500 Normal 0.0-0.9 [facility] Comment on above: Result Comment: IG% - Immature Granulocytes (promyelocytes, myelocytes and metamyelocytes) > 1% indicates that a LEFT SHIFT is Present. Performed By: #### L 3410.9999, L505.5000 #### [facility] [address] [place], [address] Lymphocytes/100 WBC (Bld) 6.4 % Low 19-41 [facility] Comment on above: Performed By: #### L 3410.9999, L505.5000 #### [facility] [address] [place], [address] MCH (RBC) [Entitic mass] 28.7 pg Normal 27.0-32.0 [facility] Comment on above: Performed By: #### L 3410.9999, L505.5000 #### [facility] [address] [place], [address] MCHC (RBC) [Mass/Vol] 32.8 g/dL Normal 32-36 [facility] Comment on above: Performed By: #### L 3410.9999, L505.5000 #### [facility] [address] [place], [address] MCV (RBC) [Entitic vol] 87.3 fL Normal 80-94 [facility] Comment on above: Performed By: #### L 3410.9999, L505.5000 #### [facility] [address] [place], [address] Monocytes/100 WBC (Bld) 8.0 % Normal 0-10 [facility] Comment on above: Performed By: #### L 3410.9999, L505.5000 #### [facility] [address] [place], [address] Neutrophils/100 WBC (Bld) 83.3 % High 47-70 [facility] Comment on above: Performed By: #### L 3410.9999, L505.5000 #### [facility] [address] [place], [address] Nucleated RBC (Bld) [#/Vol] 0 10*3/uL Normal 0-5 [facility] Comment on above: Performed By: #### L 3410.9999, L505.5000 #### [facility] [address] [place], [address] Platelet mean volume (Bld) [Entitic vol] 9.8 fL Normal 6.2-12.0 [facility] Comment on above: Performed By: #### L 3410.9999, L505.5000 #### [facility] [address] [place], [address] Platelets (Bld) [#/Vol] 277 10*3/uL Normal 150-450 [facility] Comment on above: Performed By: #### L 3410.9999, L505.5000 #### [facility] [address] [place], [address] RBC (Bld) [#/Vol] 5.13 10*6/uL Normal 4.6-6.2 [facility] Comment on above: Performed By: #### L 3410.9999, L505.5000 #### [facility] [address] [place], [address] RDW SD 41.0 fl Normal 35.1-43.9 [facility] Comment on above: Performed By: #### L 3410.9999, L505.5000 #### [facility] [address] [place], [address] WBC (Bld) [#/Vol] 16.4 10*3/uL High 4.4-11.0 [facility] Comment on above: Performed By: #### L 3410.9999, L505.5000 #### [facility] [address] [place], [address] CDIFF (PCR)on 08-27-2024 CDIFF Pending 027 027 NAP1-B1 Presumptive Negative *for epidemiolologic???use C. Diff PCR Negative- No toxigenic C. Diff Detected Normal [facility] Comment on above: Performed By: #### L 3410.9999, L505.5000 #### [facility] [address] [place], [address] Carbon dioxide measurementOr dered By: Juan Luis Rubio on 08-27-2024 CO2 [Moles/Vol] 21.0 mmol/L 21.0-32.0 [facility] Chest 1 View (Portable)on Chest 1 View (Portable) [facility] Imaging Services [address] [place] [address] Chest 1 View (Portable) MR#: [id number] Acct: [id number] Name: MICHAEL BATES JrMukesh Rep #: [id number] : 1955 M 69 From: Moises Escoto PCP: Dr. Nadir Grady MD Status: PRE ER Study: Chest 1 View (Portable) Date of Exam: 08/27/24 Exam# [id number] Ordering Dr: Juan Luis Rubio DO [id number] INDICATION: chest pain EXAMINATION/TECHNIQUE: X-RAY - XR Chest 1 View COMPARISON: Prior study dated: 07/28/2024 FINDINGS: LINES/DEVICES: None. LUNGS: Vague opacity/nodular density in the right lower lung could be due to pulmonary nodules. Lungs are otherwise clear. No evidence of pleural effusions. MEDIASTINUM AND CARDIOVASCULAR STRUCTURES: Cardiac silhouette not enlarged. Central airways and mediastinal contour are unremarkable. BONES AND SOFT TISSUES: Stable osseous structures. RAD/Chest 1 View (Portable) IMPRESSION: Vague right lower lung density could be due to early infiltrate. Follow-up examination or correlation with CT scan is recommended. Electronically Signed: Moises Frausto MD at 10:35 EST , CC: Dr. Juan Luis Rubio, DO; Dr. Nadir Grady MD Letter Sorting Machine Operator: Signed Normal [facility] Chloride measurementOrdered By: Juan Luis Rubio on 08-27-2024 Chloride [Moles/Vol] 101 mmol/L 98-107 [facility] ENTERIC PATHOGEN PANEL STOOL on 08-27-2024 EP PANEL Normal Reference Ran ge = Not Detected GI pathogens Pnl Stl RIVER+probe Nucleic acid amplification test method GI pathogens Pnl Stl RIVER+probe Norovirus Gl/Gll detected. Contact precautions should be followed for these patients and limit exposure to others since spread of disease is common. Treatment is often not needed for this pathogen. This is an amplified DNA test which makes it both specific and sensitive. GI pathogens Pnl Stl RIVER+probe Copy of report sent to Infection Control Printer [id number] 08/27/24 5014 JENNIE. GI pathogens Pnl Stl RIVER+probe RESULTS CALLED TO DANIEL SAL 08/27/24 1435 Karin Barber. REPORT READ BACK BY . CAMPYLOBACTER Not Detected Norovirus A Norovirus Detected A Rotavirus Not Detected Salmonella Not Detected Shiga Toxin Not Detected Shigella sp. Not Detected VIBRIO Not Detected Yersinia Not Detected Norovirus Normal [facility] Comment on above: Performed By: #### L 3410.9999, L505.5000 #### [facility] [address] [facility] [place], [address] Emergency Department Summary on 08-27-2024 Emergency Department Summary [facility] Medical Records Department [address] [place] [address] Emergency Department Summary 08/27/24 MR#: [id number] Acct: [id number] Name: MICHAEL BATES Jr. Rep #: [id number] : 1955 69 From: Juan Luis Rubio DO PCP: Dr. Nadir Grady MD Status:DEP ER Location: ED HPI History of Present Illness Chief Complaint: Chest Pain Informant: patient and family Narrative Narrative: 69-year-old male presenting to the emergency room with weakness diarrhea and chest pressure. Patient states that a couple weeks ago he had a stent (my 12) placed here at the hospital. He states that he never regained his energy. States of the past couple days he has had worsening generalized weakness and a chest pressure that comes on midsternally when he exerts himself. He states that about an hour prior to arrival he had worsening weakness as well as diarrhea that has been ongoing since 7:00 this morning. He states that he almost vomited once. No reported fevers. He states he is on a new medication for his blood sugar in the past month that has made his blood sugar lower now in the 120s. He is unsure of the name. He states he is also on a new blood thinner but through asking him questions he has been on this for about a year. He believes it is Brilinta. [facility] Medical History Essential (primary) hypertension Hyperlipidemia Stroke/cerebrovascular accident Hypertension History of CAD (coronary artery disease) Hx of diabetes insipidus Tremor of both hands COVID-19 (06/2021) Bilateral carotid artery stenosis Syncope (10/2021) Atherosclerotic heart disease of [place] coronary artery without angina pectoris (10/10/23) Type 2 diabetes mellitus Sciatica DDD (degenerative disc disease) Elevated LFTs BPH (benign prostatic hyperplasia) Home Medications ???Medication ???Instructions ???Recorded ???Last Taken ???Type aspirin 81 mg tablet,delayed 81 mg PO DAILY@0800 heart [facility] 09/13/13 02/11/22 History release omega 4-xag-uks-fish oil 1,000 mg 1,000 mg PO QDAY supplement 01/06/18 12/29/21 History (120 mg-180 mg) capsule (Fish Oil) ferrous sulfate 325 mg (65 mg 325 mg PO BID supplement 06/28/22 Unknown History iron) tablet ranolazine 1,000 mg 1,000 mg PO BID heart #60 tabs 10/30/23 Unknown Rx tablet,extended release,12 hr ticagrelor 90 mg tablet (Brilinta) 90 mg PO BID anti platelet #60 tabs 10/30/23 Unknown Rx zinc acetate 50 mg (zinc) capsule 50 mg PO DAILY supplement 10/30/23 Unknown History (Galzin) nitroglycerin 0.4 mg sublingual 0.4 mg sublingual Q5M PRN chest 12/04/23 Unknown Rx tablet pain #30 tabs amlodipine 10 mg tablet 10 mg PO DAILY #90 tabs 12/18/23 Unknown Rx omeprazole 40 mg capsule,delayed 40 mg PO DAILY #90 caps 04/19/24 Unknown Rx release atorvastatin 80 mg tablet 80 mg PO DAILY for cholesterol #90 07/26/24 Unknown Rx TABLETS empagliflozin 10 mg tablet 10 mg PO QAM 07/28/24 Unknown History (Jardiance) isosorbide mononitrate 30 mg 30 mg PO QAM #30 tabs 07/28/24 Unknown Rx tablet,extended release 24 hr Allergy/AdvReac Type Severity Reaction Status Date / Time fludrocortisone (From Allergy Severe ANGIOEDEMA Verified 07/28/24 08:11 Florinef) losartan AdvReac Severe Angioedema Verified 07/28/24 08:11 iodine AdvReac unknown Verified 07/28/24 08:11 perfume AdvReac Other Verified 07/28/24 08:11 Family History Sister CAD (coronary artery disease) CVA (cerebral vascular accident) Diabetes Myocardial infarction Hx of CABG Mother Cancer Lung CA Surgical History History of loop recorder (12/13/21) History of cataract surgery History of left heart catheterization (10/10/23) History of hand surgery History of coronary artery stent placement (08/16/24) Hx of appendectomy Social History Smoking Status: Never smoker alcohol intake: never substance use type: does not use caffeine: No what type of physical activity do you participate in: none seatbelt use: always do you feel safe at home: Yes ROS ROS ED ROS Narrative Generalized weakness Constitutional Constitutional ED: Denies chills or weight loss Eyes Eyes: Denies change in vision or diplopia ENT ENT ED: Denies ear pain, rhinorrhea or sore throat Cardiovascular Cardiovascular: Reports chest pain; Denies orthopnea, palpitations or racing heartbeat Respiratory/Chest Respiratory/Chest: Reports dyspnea; Denies cough or orthopnea Gastrointestinal Gastrointestinal: Reports diarrhea and nausea; Denies abdominal pain or vomiting Genitourinary Genitourinary ED: Denies dysuria, hematuria or urinary frequency (more content not included)... Normal [facility] Eosinophil percentageOrdered By: ED PROVIDER on 08-27-2024 Eosinophils/100 WBC (Bld) 1.3 % 0-5 [facility] Epithelial cells.squamous LM Ql (Urine sed)Ordered By: Juan Luis Rubio on 08-27-2024 Epithelial cells.squamous LM.HPF (Urine sed) [#/Area] 0 /[HPF] 0-5 [facility] Erythrocyte distribution wid th ratioOrdered By: ED PROVIDER on 08-27-2024 Erythrocyte distribution width (RBC) [Ratio] 12.9 % 11.6-14.6 [facility] Erythrocyte distribution wid th standard deviationOrdered By: ED PROVIDER on 08-27-2024 Erythrocyte distribution width (RBC) [Entitic vol] 41.0 fL 35.1-43.9 [facility] Estimated glomerular filtrat ion rate (GFR) AmericanOrdered By: Juan Luis Rubio on 08-27-2024 Estimated GFR (MDRD) Amer 68 mL/min >60 [facility] Comment on above: GFR Calc Estimation of creatinine екатерина aranceOrdered By: Juan Luis Rubio on 08-27-2024 Estimated Creatinine Clearance Calc 52.21 ml/min [facility] Glomerular filtration rate ( GFR) estimationOrdered By: Juan Luis Rubio on 08-27-2024 Estimated GFR (MDRD) Non-Af Amer 56 mL/min Low >60 [facility] Comment on above: Non- GFR Calc Glucose Ql (U)Ordered By: Nitesh Rubio on 08-27-2024 Glucose (U) [Mass/Vol] 1000 mg/dL High Normal [facility] Glucose measurementOrdered B y: Juan Luis Rubio on 08-27-2024 Glucose [Mass/Vol] 234 mg/dL High 74-106 [facility] Comment on above: Glucose result great er than or equal to 200 mg/dLsuggests DIABETES MELLITUS per A.D.A. criteria. Hematocrit Auto (Bld) [Volum e fraction]Ordered By: ED PROVIDER on 08-27-2024 Hematocrit (Bld) [Volume fraction] 44.8 % 40-54 [facility] Hemoglobin measurementOrdere d By: ED PROVIDER on 08-27-2024 Hemoglobin (Bld) [Mass/Vol] 14.7 g/dL 13.0-16. 5 [facility] Immature granulocytes/100 WB C Auto (Bld)Ordered By: ED PROVIDER on 08-27-2024 Immature granulocytes/100 WBC (Bld) 0.500 % 0.0-0.9 [facility] Comment on above: IG% - Immature Granu locytes (promyelocytes, myelocytes and metamyelocytes) > 1% indicates that a LEFT SHIFT is Present. Ketones Test strip Ql (U)Ord ered By: Juan Luis Rubio on 08-27-2024 Ketones Ql (U) 5 mg/dl High Negative [facility] L501.4020on 08-27-2024 TROPONIN-I HS 4 pg/mL Normal 3.0-78.0 [facility] Comment on above: Result Comment: Plea se Note: New Test Units and Gender Specific Reference Ranges. For more information see Policy Stat Procedure [place] High Sensitivity Troponin (TNIH) and attachments. Performed By: #### L 3410.9999, L505.5000 #### [facility] [address] [place], [address] L501.5425on 08-27-2024 TROPONIN-I HS 4 pg/mL Normal 3.0-78.0 [facility] Comment on above: Order Comment: [id number] 3 URINE TOX Result Comment: Plea se Note: New Test Units and Gender Specific Reference Ranges. For more information see Policy Stat Procedure [place] High Sensitivity Troponin (TNIH) and attachments. Performed By: #### L 3410.9999, L505.5000 #### [facility] [address] [place], [address] Laboratory - Chemistry and C hemistry - challengeOrdered By: Juan Luis Rubio on 08-27-2024 AST [Catalytic activity/Vol] 25 U/L 15-37 [facility] Lactoferrin IA Ql (Stl)Order ed By: Juan Luis Rubio on 08-27-2024 Stool Lactoferrin [facility] Liver Profileon 08-27-2024 Albumin [Mass/Vol] 5.1 g/dL High 3.2-5.0 [facility] Comment on above: Performed By: #### L 500.3400 #### [facility] [address] [place], [address] ALK P 155 U/L High 45-117 [facility] Comment on above: Performed By: #### L 500.3400 #### [facility] [address] [place], [address] ALT [Catalytic activity/Vol] 36 U/L Normal 16-61 [facility] Comment on above: Performed By: #### L 500.3400 #### [facility] [address] [place], [address] AST [Catalytic activity/Vol] 25 U/L Normal 15-37 [facility] Comment on above: Performed By: #### L 500.3400 #### [facility] [address] [place], [address] Bilirubin [Mass/Vol] 0.60 mg/dL Normal 0.20-1.00 [facility] Comment on above: Result Comment: For patients on eltrombopag therapy, use of Dimension [place] TBIL is not recommended. Performed By: #### L 500.3400 #### [facility] [address] [place], [address] Bilirubin.direct [Mass/Vol] 0.15 mg/dL Normal 0.00-0.3 0 [facility] Comment on above: Performed By: #### L 500.3400 #### [facility] [address] [place], [place], [address] Globulin (S) [Mass/Vol] 4.0 g/dL Normal 2.2-4.2 [facility] Comment on above: Performed By: #### L 500.3400 #### [facility] [address] [place], [place], [address] T PROT 9.1 g/dL High 6.4-8.2 [facility] Comment on above: Performed By: #### L 500.3400 #### [facility] [address] [place], [place], [address] Lymphocytes Auto (Unsp spec) [#/Vol]Ordered By: ED PROVIDER on 08-27-2024 Lymphocytes (Bld) [#/Vol] 1.06 10*3/uL 0.83-4.5 1 [facility] Lymphocytes/100 WBC Auto (Un sp spec)Ordered By: ED PROVIDER on 08-27-2024 Lymphocytes/100 WBC (Bld) 6.4 % Low 19-41 [facility] MCV (mean corpuscular volume ) determinationOrdered By: ED PROVIDER on 08-27-2024 MCV (RBC) [Entitic vol] 87.3 fL 80-94 [facility] Mean corpuscular hemoglobin (MCH) determinationOrdered By: ED PROVIDER on 08-27-2024 MCH (RBC) [Entitic mass] 28.7 pg 27.0-32.0 [facility] Mean corpuscular hemoglobin concentration (MCHC) determinationOrdered By: ED PROVIDER on 08-27-2024 MCHC (RBC) [Mass/Vol] 32.8 g/dL 32-36 [facility] Mean platelet volume determi nationOrdered By: ED PROVIDER on 08-27-2024 Platelet mean volume (Bld) [Entitic vol] 9.8 fL 6.2-12.0 [facility] Microscopic analysis of urin e for red blood cells (RBC)Ordered By: Juan Luis Rubio on 08-27-2024 Urine RBC 0 SEEN /hpf 0-5 [facility] Monocyte percentageOrdered B y: ED PROVIDER on 08-27-2024 Monocytes/100 WBC (Bld) 8.0 % 0-10 [facility] Mucus LM Ql (Urine sed)Order ed By: Juan Luis Rubio on 08-27-2024 Mucus Ql (Urine sed) 0 SEEN /hpf [facility] Neutrophil percentageOrdered By: ED PROVIDER on 08-27-2024 Neutrophils/100 WBC (Bld) 83.3 % High 47-70 [facility] Nitrite Test strip Ql (U)Ord ered By: Juan Luis Rubio on 08-27-2024 Nitrite Ql (U) Negative Negative [facility] Nucleated red blood cell per centageOrdered By: ED PROVIDER on 08-27-2024 Nucleated RBC/100 WBC (Bld) [Ratio] 0 % 0-5 [facility] Ova and parasitesOrdered By: Juan Luis Rubio on 08-27-2024 Ova and Parasites [facility] Platelet countOrdered By: ED PROVIDER on 08-27-2024 Platelets (Bld) [#/Vol] 277 10*3/uL 150-450 [facility] Potassium measurementOrdered By: Juan Luis Rubio on 08-27-2024 Potassium [Moles/Vol] 4.2 mmol/L 3.5-5.1 [facility] Protein Test strip Ql (U)Ord ered By: Juan Luis Rubio on 08-27-2024 Protein Ql (U) 30 mg/dl High Negative [facility] RBC Auto (Bld) [#/Vol]Ordere d By: ED PROVIDER on 08-27-2024 RBC (Bld) [#/Vol] 5.13 10*6/uL 4.6-6.2 [facility] Serum anion gap measurementO rdered By: Juan Luis Rubio on 08-27-2024 Anion gap [Moles/Vol] 11 mmol/L 5-15 [facility] Serum globulin measurementOr dered By: Juan Luis Rubio on 08-27-2024 Globulin (S) [Mass/Vol] 4.0 g/dL 2.2-4.2 [facility] Serum or plasma alanine toscano otransferase (ALT) measurementOrdered By: Juan Luis Rubio on 08-27-2024 ALT [Catalytic activity/Vol] 36 U/L 16-61 [facility] Serum or plasma albumin jaziel urement (mass/volume)Ordered By: Juan Luis Rubio on 08-27-2024 Albumin [Mass/Vol] 5.1 g/dL High 3.2-5.0 [facility] Serum or plasma alkaline geronimo sphatase measurementOrdered By: Juan Luis Rubio on 08-27-2024 ALP [Catalytic activity/Vol] 155 U/L High 45-117 [facility] Serum or plasma calcium jaziel urement (mass/volume)Ordered By: Juan Luis Rubio on 08-27-2024 Calcium [Mass/Vol] 10.0 mg/dL 8.5-10.1 [facility] Serum or plasma creatinine m easurement (mass/volume)Ordered By: Juan Luis Rubio on 08-27-2024 Creatinine [Mass/Vol] 1.34 mg/dL High 0.70-1.30 [facility] Comment on above: The validity of the calculated GFR & GFRAA in patients over 70 years has not been determined. Clinical correlation is essential. Serum or plasma urea nitroge n measurement (mass/volume)Ordered By: Juan Luis Rubio on 08-27-2024 Urea nitrogen [Mass/Vol] 30 mg/dL High 7-18 [facility] Sodium levelOrdered By: Tien Rubio on 08-27-2024 Sodium [Moles/Vol] 133 mmol/L Low 136-145 [facility] Stool Lactoferrin/WBCon 08-02 WBCST Normal Reference Ran ge = Negative Fecal WBC Lactoferrin A Positive: Fecal WBC Lactoferrin present A Normal [facility] Comment on above: Performed By: #### L 3410.9999, L505.5000 #### [facility] [place], [address] Stool enteric pathogen panel by probe and target amplification methodOrdered By: Juan Luis Rubio on 08-27-2024 Enteric Bacteriology Norovirus Abnormal [facility] Total proteinOrdered By: Cesar Rubio on 08-27-2024 Protein [Mass/Vol] 9.1 g/dL High 6.4-8.2 [facility] Troponin IOrdered By: Juan Luis Rubio on 08-27-2024 Troponin I High Sensitivity 4 pg/mL 3.0-78.0 [facility] Comment on above: Please Note: New Yajaira t Units and Gender Specific Reference Ranges. For more information see Policy Stat Procedure [place] High Sensitivity Troponin (TNIH) and attachments. Urinalysis, Completeon 08-27 BACTERIA 0 SEEN Normal None Seen [facility] Comment on above: Order Comment: [id number] 3 URINE TOX Performed By: #### L 3410.9999, L505.5000 #### [facility] [address] [place], [address] EPI,SQUAMOUS 0 SEEN Normal 0-5 [facility] Comment on above: Order Comment: 03999 3 URINE TOX Performed By: #### L 3410.9999, L505.5000 #### [facility] [address] [place], [address] Mucus Ql (Urine sed) 0 SEEN Normal [facility] Comment on above: Order Comment: [id number] 3 URINE TOX Performed By: #### L 3410.9999, L505.5000 #### [facility] [address] [place], [address] RBC 0 SEEN Normal [address] [place] [address] Comment on above: Order Comment: 10687 3 URINE TOX Performed By: #### L 3410.9999, L505.5000 #### [facility] [address] [place], [address] WBC 0 SEEN Normal 0-5 [facility] Comment on above: Order Comment: [id number] 3 URINE TOX Performed By: #### L 3410.9999, L505.5000 #### [facility] [address] [place], [address] Urine blood detectionOrdered By: Juan Luis Rubio on 08-27-2024 Urine Occult Blood Negative Negative [facility] Urine clarityOrdered By: Cesar Rubio on 08-27-2024 Clarity (U) Clear Clear [facility] Urine color determinationOrd ered By: Juan Luis Rubio on 08-27-2024 Color (U) Yellow Yellow [facility] Urine leukocyte esterase det ection by dipstickOrdered By: Juan Luis Rubio on 08-27-2024 Leukocyte esterase Test strip Ql (U) Negative Negative [facility] Urine pHOrdered By: Juan Luis chand on 08-27-2024 pH (U) 6.0 [pH] 5.0 - 8.0 [facility] Urine sediment bacteria coun t by microscopy (number/high power field)Ordered By: Juan Luis Rubio on 08-27-2024 Bacteria LM.HPF (Urine sed) [#/Area] 0 /[HPF] None Seen [facility] Urine specific gravity measu rementOrdered By: Juan Luis Rubio on 08-27-2024 Specific gravity (U) [Rel density] 1.015 1.002-1.03 0 [facility] Urobilinogen Ql (U)Ordered B y: Juan Luis Rubio on 08-27-2024 Urine Urobilinogen Normal mg/dl Normal [facility] White blood cell (WBC) count Ordered By: ED PROVIDER on 08-27-2024 WBC (Bld) [#/Vol] 16.4 10*3/uL High 4.4-11.0 [facility] White blood cell countOrdere d By: Juan Luis Rubio on 08-27-2024 Urine WBC 0 SEEN /hpf 0-5 [facility] Cardiac Cath Diagnosticon Cardiac Cath Diagnostic [facility] Imaging Services [address] [place] [address] Cardiac Cath Diagnostic MR#: [id number] Acct: [id number] Name: MICHAEL BATES Rep #: [id number] : 1955 69 From: Jd Kern MD PCP: Dr. Nadir Grady MD Status:[facility] Patient Name: MICHAEL BATES Study Date: 08/16/2024 Performing: Jd Kern MD Ht: 70 inches 177.8 cm : 1955 Wt: 178.99 lbs 81.19 kg Age: 69 Gender: male BSA: 1.99 PROCEDURE(S) PERFORMED DC01-(90891)LHC/COR/LV CLINICAL PROFILE AND INDICATIONS Indications: Worsening Angina Heart Failure: None Stress/Imaging Stress/Image Study Performed: No CAD Presentations: Unstable angina. CONCLUSIONS Coronary disease with previously placed stents in all 3 vascular territories. Restenosis noted of the proximal right coronary artery stent. RECOMMENDATIONS Referred for immediate PCI DESCRIPTION OF PROCEDURE The patient arrived to the procedure lab. The risks and benefits of the procedure as well as a full description of our services here and current unavailability of surgical backup were fully explained to the patient and/or their significant other prior to the catheterization. The Timeout was completed, verifying the correct patient and procedure. The patient's procedural site was prepped and draped in the usual fashion. Local anesthetic was given subcutaneously to right radial region with Lidocaine 2%. Using a modified Seldinger technique, arterial access was obtained via the right radial artery, a 6Fr sheath was inserted. Left Coronary Artery selective angiography was performed in multiple views using a 5 Fr. 4.0 Summerfield catheter. Right Coronary Artery selective angiography was then performed in multiple views using a 5 Fr. 4.0 Summerfield catheter. Left Ventriculography was performed in SUAREZ projection using a 5 Fr. Pigtail catheter. LV to AO pullback pressures were then recorded. CORONARY ANGIOGRAPHY DOMINANCE: Right Dominant LEFT HEART ASSESSMENT Left Ventricular Ejection Fraction: by LV Gram 55 % Normal LV wall motion Normal Left Ventricular systolic function LEFT MAIN: Mild calcification, Angiographically normal LEFT ANTERIOR DESCENDING ARTERY: Previously placed stent in the mid left anterior descending artery is noted to be patent with a first diagonal vessel with moderate disease noted in the proximal segment and the stent noted to be patent. CIRCUMFLEX ARTERY: Nondominant vessel with previously placed proximal stent in the circumflex artery noted to be patent, second obtuse marginal branch with 70% stenosis in the AV groove branch with mild disease. RIGHT CORONARY ARTERY: Dominant right coronary artery stented in the proximal mid and distal segments with proximal in-stent stenosis of 80% mid mild disease and distal mild disease. The posterior descending artery has 40 to 50% diffuse disease. COMPLICATIONS PROCEDURE MEDICATIONS Versed 0.5 mg IV Fentanyl 25 mcg IV Versed 1 mg IV Oxygen: 2 L/min via nasal cannula Brilinta 90 mg PO 08/16/2024 07:06:47 Baby Aspirin (81mg) 1 Tabs PO 08/16/2024 07:06:52 Benadryl 50 mg IV @ 08/16/2024 08:21:45 Heparin given IA 08/16/2024 08:29:49 Solu-medrol 125 mg IV 08/16/2024 08:21:52 SUMMARY OF HEMODYNAMIC DATA Time AIR REST ECG 07:03:42 AO 157/39 (72) SA 08:37:18 AO 142/67 (101) 08:38:09 LV 141/-4, 6 08:43:41 LV 151/-1, 9 08:43:47 LV 130/0, 6 08:45:14 LV 140/0, 11 08:45:20 LVp 148/-5, 15 08:45:24 AOp 147/55 (96) 08:45:29 Art 142/56 (90) 08:47:33 Signed By Jd Kern MD On 08/16/2024 09:23:22 Signed By Jd Kern MD On 08/16/2024 09:22:56 Jd Kern MD 08/16/24922 Date Jd Small Signature: Date (if indicated) CC: Dr. Jd Kern MD; Dr. Nadir Grady MD Date Dictated: 08/16/24826 Date Transcribed: 08/16/24922 Letter Sorting Machine Operator: [place] Signed [facility] Cardiac Cath Interventionon 08-16-2024 Cardiac Cath Intervention [facility] Imaging Services [address] [place] [address] Cardiac Cath Intervention MR#: [id number] Acct: [id number] Name: MICHAEL BATES Jr. Rep #: [id number] : 1955 69 From: Jd Kern MD PCP: Dr. Nadir Grady MD Status:[facility] Patient Name: MICHAEL BATES Study Date: 08/16/2024 Performing: Blanka Cabrales MD Ht: 70 inches 177.8 cm : 1955 Wt: 178.99 lbs 81.19 kg Age: 69 Gender: male BSA: 1.99 PROCEDURE(S) PERFORMED IC12-(08455/C9600)RODDY W/WO PTCA, SINGLE CORONARY ARTERY CLINICAL PROFILE AND CO-MORBIDITIES Indications: Worsening Angina Heart Failure: None Stress/Imaging Stress/Image Study Performed: No CAD Presentations: Unstable angina. CONCLUSIONS Successful RODDY to ISR of RCA RECOMMENDATIONS DESCRIPTION OF PROCEDURE The patient arrived to the procedure lab. The risks and benefits of the procedure as well as a full description of our services here and current unavailability of surgical backup were fully explained to the patient and/or their significant other prior to the catheterization. The Timeout was completed, verifying the correct patient and procedure. The patient's procedural site was prepped and draped in the usual fashion. Local anesthetic was given subcutaneously to right radial region with Lidocaine 2% Using a modified Seldinger technique,arterial access was obtained via the right radial artery, a 6Fr sheath was inserted. Left Coronary Artery selective angiography was performed in multiple views using a 5 Fr. 4.0 Summerfield catheter. Right Coronary Artery selective angiography was then performed in multiple views using a 5 Fr. 4.0 Summerfield catheter. Left Ventriculography was performed in USAREZ projection using a 5 Fr. Pigtail catheter. LV to AO pullback pressures were then recorded.The images were reviewed and options discussed. A decision was then made to proceed with an Intervention, IVUS or other adjunct procedure. JR 4 Guide catheter was inserted and engaged into the RCA. {L1} BMW Guide wire was advanced to the RCA. EUPHORA 3.0 X 12 Balloon catheter was inserted. Balloon catheter was advanced across lesion in the right coronary, proximal. PTCA balloon inflated at 12 atms for 36 secs. Angiogram performed pre balloon dilatation. PTCA balloon inflated at 12 atms for 8 secs. PTCA balloon inflated at 16 atms for 36 secs. Angiogram performed post balloon dilatation. WOLVERINE 3.0 X 10 Balloon catheter was inserted. Balloon catheter was advanced across lesion in the right coronary, proximal. Angiogram performed post balloon dilatation. Angiogram performed post balloon dilatation. DRAKE FRONTIER 3.5 X 12 Drug Eluting stent was inserted. Drug Eluting stent was advanced across the lesion in the right coronary, proximal. Angiogram performed pre stent deployment. Angiogram performed post stent deployment. The arterial sheath was pulled and a TR Band was applied for hemostasis 10ML OF AIR INTERVENTION INFORMATION LESION SITE: RCA (Proximal) Lesion Complexity: High/C, chronic total occlusion: No, lesion at bifurcation: No, thrombus present: No, lesion length: 11 mm, culprit lesion: Yes, Previously treated lesion: Yes, Timeframe of previous treatment: Time unknown, Previously treated with a stent: Yes Stent Type: with stent type unknown, In-stent Thrombosis: No, In-stent restenosis: Yes Pre Stenosis: 80 % Pre intervention SHARRI flow: 3 PROCEDURE: Drug Eluting Stent with pre dilatation., Cutting Balloon Angioplasty Post Stenosis: 0 % Post intervention SHARRI flow: 3 Lesion Devices: Zavaleta .014 190cm BMW Victor Straight Cordis 6 Fr JR4 100cm Guide Catheter Medtronic SC EUPHORA RX 3.0x12 BALLOON Nicola Sci Surfside cutting balloon 3.0x10 Medtronic 3.5 x 12 DRAKE FRONTIER RODDY COMPLICATIONS No Complications PROCEDURE MEDICATIONS Versed 0.5 mg IV Fentanyl 25 mcg IV Versed 1 mg IV Oxygen: 2 L/min via nasal cannula Brilinta 90 mg PO 08/16/2024 07:06:47 Baby Aspirin (81mg) 1 Tabs PO 08/16/2024 07:06:52 Benadryl 50 mg IV @ 08/16/2024 08:21:45 Heparin given IA 08/16/2024 08:29:49 Heparin 5000 unit(s) IV 08/16/2024 09:37:39 Solu-medrol 125 mg IV 08/16/2024 08:21:52 SUMMARY OF HEMODYNAMIC DATA Time AIR REST ECG 07:03:42 AO 157/39 (72) SA 08:37:18 AO 142/67 (101) 08:38:09 LV 141/-4, 6 08:43:41 LV 151/-1, 9 08:43:47 LV 130/0, 6 08:45:14 LV 140/0, 11 08:45:20 LVp 148/-5, 15 08:45:24 AOp 147/55 (96) 08:45:29 Art 142/56 (90) 08:47:33 AO 138/60 (92) 09:45:34 AO 180/73 (120) 09:54:51 10:15:51 Signed By Blanka Cabrales MD On 08/16/2024 10:26:25 Blanka Cabrales MD 08/16/24 1027 Date Jd Small Signature: Date (more content not included)... [facility] 08-12-2024 [facility] MICHAEL BATES ([id number]) 1955 M Date Time Provider Department 08/12/24 8:00 AM [facility] During your visit today, we recorded the following information about you: Temperature Pulse Respiration Blood pressure 97.2 degrees 70/minute 20/minute 118/74 Weight 82.2 kg Bridget Joseph APRN.CERTIFIED ANESTHESIOLOGIST ASSISTANT 08/12/2024 8:15 AM Signed This note was created using [employer]. Subjective Michael Bates is a 69 year old male. HPI Patient notes that the lower plate of his dentures had been shifting and created a sore at the base of the inside of his lower lip. He applied some sort of drops for canker sores last evening and today he feels as though his lips and tongue are swollen. He otherwise denies any nausea vomiting fever chest pain or shortness of breath. Review of Systems As above Objective BP 118/74 Pulse 70 Temp 36.2 ?C (97.2 ?F) Resp 20 Wt 82.2 kg (181 lb 3.5 oz) SpO2 98% BMI 26.92 kg/m? Physical Exam Vitals and nursing note reviewed. Constitutional: General: He is not in acute distress. Appearance: Normal appearance. He is not ill-appearing. HENT: Head: Normocephalic. Mouth/Throat: Mouth: Mucous membranes are moist. Comments: No obvious swelling of the mouth, lips, tongue, posterior oropharynx. Eyes: Conjunctiva/sclera: Conjunctivae normal. Cardiovascular: Rate and Rhythm: Normal rate and regular rhythm. Pulmonary: Effort: Pulmonary effort is normal. Breath sounds: Normal breath sounds. Musculoskeletal: General: Normal range of motion. Cervical back: Normal range of motion. Skin: General: Skin is warm and dry. Neurological: General: No focal deficit present. Mental Status: He is alert. Psychiatric: Mood and Affect: Mood normal. Behavior: Behavior normal. Assessment and Plan ASSESSMENT/PLAN: 1. Adverse effect of kjzl-bju-gxnfykh medication, initial encounter - ICD9: E947.9, ICD10: T50.905A On physical exam I saw no obvious sign of swelling to the mouth, lips, or tongue. Patient did have a tiny sore near the base of the frenulum. I informed patient he should use bvlh-kwb-emsbesn antihistamine such as Claritin, Benadryl, or Zyrtec. I informed him that if it anytime he felt as though his symptoms were not improving or he was having any trouble with swallowing or breathing he should go directly to the emergency department. He was instructed not to use the drops again. Bridget Joseph APRN.CERTIFIED ANESTHESIOLOGIST ASSISTANT Allergies As of Date: 08/12/2024 Noted Allergy Reaction FLORINEF (FLUDROCORTISONE) 04/25/2022 18 - Angioedema LOSARTAN 10/24/2023 18 - Angioedema PERFUMES 01/20/2012 14 - Other: See Comments Comments: sneezing Date Reviewed: 08/12/2024 Reviewed by: Bridget Joseph APRN.CERTIFIED ANESTHESIOLOGIST ASSISTANT - Fully Assessed Reason for Visit: Mouth Sores [839] Cmt: Sore in mouth on bottom front gum area x 1 day Primary Visit Diagnosis:Adverse effect of pezx-emv-kzpgwxq medication, initial encounter [T50.584O] Prescriptions as of 08/12/2024 - isosorbide mononitrate ER (IMDUR) 30 mg 24 hr tablet Take 1 tablet by mouth once daily. Per Cardio: [facility] - empagliflozin (JARDIANCE) 10 mg tablet Take 1 tablet by mouth once daily. Take 1 tablet once daily in the morning - Zinc Gluconate 50 mg tablet Take 50 mg by mouth once daily. - ferrous sulfate 325 mg (65 mg iron) tablet Take 1 tablet by mouth two times a day with meals. - metFORMIN ER (GLUCOPHAGE XR) 500 mg 24 hr tablet Take 2 tablets by mouth two times a day. - amLODIPine (NORVASC) 10 mg tablet Take 1 tablet by mouth once daily. Per [facility] - atorvastatin (LIPITOR) 80 mg tablet Take 1 tablet by mouth once daily. Managed by cardiology, Dr. Kern - omeprazole (PRILOSEC) 40 mg capsule Take 1 capsule by mouth once daily. Per [facility] - ranolazine ER (RANEXA) 1,000 mg tab ER 12 hr Take 1 tablet by mouth two times a day. Per [facility] - carvedilol (COREG) 3.125 mg tablet Take 1 tablet by mouth two times a day. Per [facility] - ticagrelor (BRILINTA) 90 mg tablet Take 1 tablet by mouth two times a day. Per [facility] - docosahexaenoic acid/epa (FISH OIL ORAL) Take by mouth as directed. - Blood-Glucose Meter monitoring kit Glucose Meter of Choice - Kit - Dx: Type 2 DM - Uncontrolled E11.65 - Lancets lancets Test blood sugar(s) 2 times daily. Dx: Type 2 DM - Uncontrolled E11.65 Insulin: No - blood sugar diagnostic (BLOOD GLUCOSE TEST) test strip Test blood sugar(s) 2 times daily. Dx: Type 2 DM - Uncontrolled E11.65 Insulin: No - nitroglycerin sublingual (NITROSTAT) 0.4 mg SL tablet Dissolve 1 tablet under the tongue every 5 minutes as needed for chest pain. - aspirin, enteric coated (ECOTRIN LOW STRENGTH) 81 mg EC tablet Take 1 tablet by mouth once daily. - Blood Pressure Monitor kit 1 Each once daily. - Blood Glucose Cont (more content not included)... Normal [facility] MICHAEL BATES ([id number]) 1955 M Date Time Provider Department 08/10/24 MARTHA BOSTON [facility] During your visit today, we recorded the following information about you: Martha Boston PA-C 08/10/2024 11:21 AM Signed Let patient know that repeat alk phos levels were better and only the intestinal portion was elevated. No further evaluation at this time. We will monitor. HOANG Candelario Amanda, RN 08/10/2024 12:48 PM Signed Pt called and is notified of providers results and instructions. Pt voices understanding. Jennifer Blue RN Allergies As of Date: 08/10/2024 Noted Allergy Reaction FLORINEF (FLUDROCORTISONE) 04/25/2022 18 - Angioedema LOSARTAN 10/24/2023 18 - Angioedema PERFUMES 01/20/2012 14 - Other: See Comments Comments: sneezing Date Reviewed: 07/24/2024 Reviewed by: Bridget Joseph APRN.[facility] - Fully Assessed Reason for Visit: Results [95] Prescriptions as of 08/10/2024 - isosorbide mononitrate ER (IMDUR) 30 mg 24 hr tablet Take 1 tablet by mouth once daily. Per Cardio: [facility] - empagliflozin (JARDIANCE) 10 mg tablet Take 1 tablet by mouth once daily. Take 1 tablet once daily in the morning - Zinc Gluconate 50 mg tablet Take 50 mg by mouth once daily. - ferrous sulfate 325 mg (65 mg iron) tablet Take 1 tablet by mouth two times a day with meals. - metFORMIN ER (GLUCOPHAGE XR) 500 mg 24 hr tablet Take 2 tablets by mouth two times a day. - amLODIPine (NORVASC) 10 mg tablet Take 1 tablet by mouth once daily. Per [facility] - atorvastatin (LIPITOR) 80 mg tablet Take 1 tablet by mouth once daily. Managed by cardiology, Dr. Kern - omeprazole (PRILOSEC) 40 mg capsule Take 1 capsule by mouth once daily. Per [facility] - ranolazine ER (RANEXA) 1,000 mg tab ER 12 hr Take 1 tablet by mouth two times a day. Per [facility] - carvedilol (COREG) 3.125 mg tablet Take 1 tablet by mouth two times a day. Per [facility] - ticagrelor (BRILINTA) 90 mg tablet Take 1 tablet by mouth two times a day. Per [facility] - docosahexaenoic acid/epa (FISH OIL ORAL) Take by mouth as directed. - Blood-Glucose Meter monitoring kit Glucose Meter of Choice - Kit - Dx: Type 2 DM - Uncontrolled E11.65 - Lancets lancets Test blood sugar(s) 2 times daily. Dx: Type 2 DM - Uncontrolled E11.65 Insulin: No - blood sugar diagnostic (BLOOD GLUCOSE TEST) test strip Test blood sugar(s) 2 times daily. Dx: Type 2 DM - Uncontrolled E11.65 Insulin: No - nitroglycerin sublingual (NITROSTAT) 0.4 mg SL tablet Dissolve 1 tablet under the tongue every 5 minutes as needed for chest pain. - aspirin, enteric coated (ECOTRIN LOW STRENGTH) 81 mg EC tablet Take 1 tablet by mouth once daily. - Blood Pressure Monitor kit 1 Each once daily. 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] 12/04/2007 Unspecified pruritic disorder [L29.9] 03/02/2009 04/12/2020 Lumbago [M54.50] 02/09/2010 Sciatica [M54.30] 02/09/2010 Neck sprain and strain [S13.9XXA] 07/30/2010 08/30/2010 Other physical therapy [RPG1729] 08/16/2010 08/30/2010 Essential hypertension, benign [I10] 01/17/2012 DDD (degenerative disc disease), cervical [M50.*01/20/2012 Cervical spondylosis [M47.812] 01/20/2012 Chronic sinusitis [J32.9] Hyperlipidemia [E78.5] 08/04/2015 Mixed hyperlipidemia [E78.2] 08/04/2015 Lumbar radiculopathy [M54.16] Chronic post-traumatic headache [G44.329] 08/04/2015 Bilateral occipital neuralgia [M54.81] 08/04/2015 Seborrheic dermatitis [L21.9] 08/04/2015 Elevated LFTs [R79.89] 08/05/2015 Carotid stenosis, asymptomatic, bilateral [I65.*08/09/2015 Neck pain, chronic [M54.2, G89.29] 10/16/2015 Cervicogenic headache [G44.86] 10/16/2015 DDD (degenerative disc disease), lumbar [M51.36*06/30/2016 Radicular pain of right lower extremity [M54.10]07/09/2016 Acute right-sided low back pain with right-side*07/09/2016 Well adult exam [Z00.00] 10/03/2016 04/12/2020 Benign non-nodular prostatic hyperplasia withou*10/03/2016 Disorder of prostate [N42.9] 10/03/2016 Type 2 diabetes mellitus with diabetic neuropat*10/07/2016 Bilateral chronic knee pain [M25.561, M25.562, *10/10/2016 Coronary atherosclerosis due to lipid rich plaq*01/20/2017 S/P drug eluting coronary stent placement [Z95.*01/20/2017 Diabetic eye exam (HCC) [Z01.00, E11.9] 03/19/2017 Leg pain, bilateral [M79.604, M79.605] 06/04/2017 Medicare annual wellness visit, subsequent [Z00*06/12/2018 GERD without esophagitis [K21.9] 06/12/2018 Neurop (more content not included)... Normal [facility] ALKALINE PHOSPHATASE ISOENZY MES (P)on 08-09-2024 ALK PHOS BONE % 34.4 % Normal 10.7-68.3 [facility] Comment on above: Order Comment: Speci men Type: BLOOD SPECIMENOrdering Facility: [facility] Address: [address] [place] [address] Performed By: #### A LKISOP ####[facility] LABCLIA [id number] [place] [address] [place] ALK PHOS LIVER % 48.3 % Normal 26.0-86.2 [facility] Comment on above: Order Comment: Speci men Type: BLOOD SPECIMENOrdering Facility: [facility] Address: [address] [place] [address] Performed By: #### A LKISOP ####[facility] LABCLIA [id number] [place] [address] [place] BONE FRACTION 47.8 U/L Normal 12.9-52.6 [facility] Comment on above: Order Comment: Speci men Type: BLOOD SPECIMENOrdering Facility: [facility] Address: [address] [place] [address] Performed By: #### A LKISOP ####[facility] LABCLIA [id number] [place] [address] [place] INTESTINE FRACTION 24.0 U/L High 0.0-16.3 [facility] Comment on above: Order Comment: Speci men Type: BLOOD SPECIMENOrdering Facility: [facility] Address: [address] [place] [address] Performed By: #### A LKISOP ####[facility] LABCLIA [id number] [place] [address] [place] LIVER FRACTION 67.1 U/L Normal 16.0-69.3 [facility] Comment on above: Order Comment: Speci men Type: BLOOD SPECIMENOrdering Facility: [facility] Address: [address] [place] [address] Performed By: #### A LKISOP ####[facility] LABIA [id number] [place] [address] [place] Neutrophils/100 WBC (Bld) 17.3 % Normal 0.0-24.2 [facility] Comment on above: Order Comment: Speci men Type: BLOOD SPECIMENOrdering Facility: [facility] Address: [address] [place] [address] Performed By: #### A LKISOP ####[facility] [id number] [place] [address] [place] ALP SerPl-cCncon 08-09-2024 ALP [Catalytic activity/Vol] 139 U/L High 38-113 [facility] Comment on above: Order Comment: Speci men Type: BLOOD SPECIMENOrdering Facility: [facility] Address: [address] [place] [address] Performed By: #### 6 768-6, 2324-2 ####[facility] [id number] [place] [address] [place] GGT SerPl-cCncon 08-09-2024 Gamma glutamyl transferase [Catalytic activity/Vol] 14 U/L Normal 10-70 [facility] Comment on above: Order Comment: Speci men Type: BLOOD SPECIMENOrdering Facility: [facility] Address: [address] [place] [address] Performed By: #### 6 768-6, 2324-2 ####[facility] LABNORT[facility] [id number] [place] [address] [place] CNPNon 08-04-2024 CNPN Telephone (FAMPWS) MICHAEL BATES ([id number]) 1955 M Date Time Provider Department 08/04/24 KARLA WADSWORTH [facility] During your visit today, we recorded the following information about you: Karla Wadsworth MA 08/04/2024 9:56 AM Signed Patient stopped by office and indicated that he wanted to wait on the blood work. I told him it was important to have the repeat labs completed to make sure the levels went down. He said he would come back as he was not fasting. Patient indicated that his fasting blood sugars are around 140. Patient also indicated that he is having a heart procedure this month. ANA Mott Rayanne, PA-C 08/04/2024 10:09 AM Signed Noted Allergies As of Date: 08/04/2024 Noted Allergy Reaction FLORINEF (FLUDROCORTISONE) 04/25/2022 18 - Angioedema LOSARTAN 10/24/2023 18 - Angioedema PERFUMES 01/20/2012 14 - Other: See Comments Comments: sneezing Date Reviewed: 07/24/2024 Reviewed by: Bridget Joseph APRN.[facility] - Fully Assessed Reason for Visit: Patient Update [1234] Prescriptions as of 08/04/2024 - isosorbide mononitrate ER (IMDUR) 30 mg 24 hr tablet Take 1 tablet by mouth once daily. Per Cardio: [facility] - empagliflozin (JARDIANCE) 10 mg tablet Take 1 tablet by mouth once daily. Take 1 tablet once daily in the morning - Zinc Gluconate 50 mg tablet Take 50 mg by mouth once daily. - ferrous sulfate 325 mg (65 mg iron) tablet Take 1 tablet by mouth two times a day with meals. - metFORMIN ER (GLUCOPHAGE XR) 500 mg 24 hr tablet Take 2 tablets by mouth two times a day. - amLODIPine (NORVASC) 10 mg tablet Take 1 tablet by mouth once daily. Per [facility] - atorvastatin (LIPITOR) 80 mg tablet Take 1 tablet by mouth once daily. Managed by cardiology, Dr. Kern - omeprazole (PRILOSEC) 40 mg capsule Take 1 capsule by mouth once daily. Per [facility] - ranolazine ER (RANEXA) 1,000 mg tab ER 12 hr Take 1 tablet by mouth two times a day. Per [facility] - carvedilol (COREG) 3.125 mg tablet Take 1 tablet by mouth two times a day. Per [facility] - ticagrelor (BRILINTA) 90 mg tablet Take 1 tablet by mouth two times a day. Per [facility] - docosahexaenoic acid/epa (FISH OIL ORAL) Take by mouth as directed. - Blood-Glucose Meter monitoring kit Glucose Meter of Choice - Kit - Dx: Type 2 DM - Uncontrolled - Lancets lancets Test blood sugar(s) 2 times daily. Dx: Type 2 DM - Uncontrolled E11.65 Insulin: No - blood sugar diagnostic (BLOOD GLUCOSE TEST) test strip Test blood sugar(s) 2 times daily. Dx: Type 2 DM - Uncontrolled E11.65 Insulin: No - nitroglycerin sublingual (NITROSTAT) 0.4 mg SL tablet Dissolve 1 tablet under the tongue every 5 minutes as needed for chest pain. - aspirin, enteric coated (ECOTRIN LOW STRENGTH) 81 mg EC tablet Take 1 tablet by mouth once daily. - Blood Pressure Monitor kit 1 Each once daily. 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] 12/04/2007 Unspecified pruritic disorder [L29.9] 03/02/2009 04/12/2020 Lumbago [M54.50] 02/09/2010 Sciatica [M54.30] 02/09/2010 Neck sprain and strain [S13.9XXA] 07/30/2010 08/30/2010 Other physical therapy [XCA0019] 08/16/2010 08/30/2010 Essential hypertension, benign [I10] 01/17/2012 DDD (degenerative disc disease), cervical [M50.*01/20/2012 Cervical spondylosis [M47.812] 01/20/2012 Chronic sinusitis [J32.9] Hyperlipidemia [E78.5] 08/04/2015 Mixed hyperlipidemia [E78.2] 08/04/2015 Lumbar radiculopathy [M54.16] Chronic post-traumatic headache [G44.329] 08/04/2015 Bilateral occipital neuralgia [M54.81] 08/04/2015 Seborrheic dermatitis [L21.9] 08/04/2015 Elevated LFTs [R79.89] 08/05/2015 Carotid stenosis, asymptomatic, bilateral [I65.*08/09/2015 Neck pain, chronic [M54.2, G89.29] 10/16/2015 Cervicogenic headache [G44.86] 10/16/2015 DDD (degenerative disc disease), lumbar [M51.36*06/30/2016 Radicular pain of right lower extremity [M54.10]07/09/2016 Acute right-sided low back pain with right-side*07/09/2016 Well adult exam [Z00.00] 10/03/2016 04/12/2020 Benign non-nodular prostatic hyperplasia withou*10/03/2016 Disorder of prostate [N42.9] 10/03/2016 Type 2 diabetes mellitus with diabetic neuropat*10/07/2016 Bilateral chronic knee pain [M25.561, M25.562, *10/10/2016 Coronary atherosclerosis due to lipid rich plaq*01/20/2017 S/P drug eluting coronary stent placement [Z95.*01/20/2017 Diabetic eye exam (HCC) [Z01.00, E11.9] 03/19/2017 Leg pain, bilateral [M79.604, M79.605] 06/04/2017 Medicare annua (more content not included)... Normal [facility] 12 Lead EKG performed by [facility] on 07-28-2024 12 Lead EKG performed by BRISA [place] [place] [address] 12 Lead EKG performed by [facility] 07/28/24852 MR#: [id number] Acct: [id number] Name: MICHAEL BATES Jr. Rep #: [id number] : 1955 69 From: Yolanda Ye Attending Dr: CAMELIA Julian Status: DEP AMB Ordering Dr: Yolanda Dean Date: 07/03 03/24 Location: [facility] Sex: M C Admitted: BMS/12 Lead EKG performed by [facility] ECG Report Interpretation ----Sinus Rhythm WITHIN NORMAL LIMITSElectronically signed on 07/28/2024 at 12:[address] Priscilla Donaldson Software Version [id number] 07/28/24 1242 Date Yolanda DENISE CC: Dr. Nadir Grady MD Date Dictated: 07/28/24852 Date Transcribed: 07/28/24852 Letter Sorting Machine Operator: SHAHEEN Signed Normal [facility] Absolute neutrophil countOrd ered By: Yolanda Dean on 07-28-2024 Neutrophils (Bld) [#/Vol] 3.7 10*3/uL 2.0-7.7 [facility] Basic Metabolic Profile (BMP )on 07-28-2024 BUN/CRE 16.5 RATIO Normal 10-20 [facility] Comment on above: Performed By: #### L 3410.9999, L505.5000 #### [facility] [address] [place], [address] CA,Total 9.5 mg/dL Normal 8.5-10.1 [facility] Comment on above: Performed By: #### L 3410.9999, L505.5000 #### [facility] [address] [place], [address] Chloride [Moles/Vol] 107 mmol/L Normal 98-107 [facility] Comment on above: Performed By: #### L 3410.9999, L505.5000 #### [facility] [address] [place], [address] CO2 [Moles/Vol] 24.0 mmol/L Normal 21.0-32.0 [facility] Comment on above: Performed By: #### L 3410.9999, L505.5000 #### [facility] [address] [place], [address] Creatinine [Mass/Vol] 1.03 mg/dL Normal 0.70-1.30 [facility] Comment on above: Result Comment: The validity of the calculated GFR GFRAA in patients over 70 years has not been determined. Clinical correlation is essential. Performed By: #### L 3410.9999, L505.5000 #### [facility] [address] [place], [address] EST GFR - AA 91 mL/min Normal >60 [facility] Comment on above: Result Comment: Afri can [place] GFR Calc Performed By: #### L 3410.9999, L505.5000 #### [facility] [address] [place], [address] GAP 6 Normal 5-15 [facility] Comment on above: Performed By: #### L 3410.9999, L505.5000 #### [facility] [address] [place], [address] GFR/1.73 sq M.predicted among non-blacks MDRD (S/P/Bld) [Vol rate/Area] 76 mL/min/{1.73_m2} Normal >60 [facility] Comment on above: Result Comment: Non- GFR Calc Performed By: #### L 3410.9999, L505.5000 #### [facility] [address] [place], [address] Glucose [Mass/Vol] 190 mg/dL High 74-106 [facility] Comment on above: Result Comment: Fast ing Glucose result greater than or equal to 126 mg/dL suggests DIABETES MELLITUS per A.D.A. criteria. Performed By: #### L 3410.9999, L505.5000 #### [facility] [address] [place], [address] Potassium [Moles/Vol] 4.2 mmol/L Normal 3.5-5.1 [facility] Comment on above: Performed By: #### L 3410.9999, L505.5000 #### [facility] [address] [place], [address] Sodium [Moles/Vol] 137 mmol/L Normal 136-145 [facility] Comment on above: Performed By: #### L 3410.9999, L505.5000 #### [facility] [address] [place], [address] Urea nitrogen [Mass/Vol] 17 mg/dL Normal 7-18 [facility] Comment on above: Performed By: #### L 3410.9999, L505.5000 #### [facility] [address] [place], [address] Basophil percentageOrdered B y: Yolanda Dean on 07-28-2024 Basophils/100 WBC (Bld) 0.8 % 0-1 [facility] Blood urea nitrogen (BUN)/cr eatinine ratioOrdered By: Yolanda Dean on 07-28-2024 Urea nitrogen/Creatinine [Mass ratio] 16.5 mg/mg 10-20 [facility] CBC W/Diff, Automatedon 07-03 Absolute Lymph 1.17 X10 3/uL Normal 0.83-4.51 [facility] Comment on above: Performed By: #### L 100.0100, L500.2500, L300.3900 #### [facility] [address] [place], [address] Absolute Neut 3.7 X10 3/uL Normal 2.0-7.7 [facility] Comment on above: Performed By: #### L 100.0100, L500.2500, L300.3900 #### [facility] [address] [place], [address] Basophils/100 WBC (Bld) 0.8 % Normal 0-1 [facility] Comment on above: Performed By: #### L 100.0100, L500.2500, L300.3900 #### [facility] [address] [place], [address] Eosinophils/100 WBC (Bld) 5.9 % High 0-5 [facility] Comment on above: Performed By: #### L 100.0100, L500.2500, L300.3900 #### [facility] [address] [place], [address] Erythrocyte distribution width (RBC) [Ratio] 12.6 % Normal 11.6-14.6 [facility] Comment on above: Performed By: #### L 100.0100, L500.2500, L300.3900 #### [facility] [address] [place], [address] Hematocrit (Bld) [Volume fraction] 38.2 % Low 40-54 [facility] Comment on above: Performed By: #### L 100.0100, L500.2500, L300.3900 #### [facility] [address] [place], [address] Hemoglobin (Bld) [Mass/Vol] 13.1 g/dL Normal 13.0-16. 5 [facility] Comment on above: Performed By: #### L 100.0100, L500.2500, L300.3900 #### [facility] [address] [place], [address] IG% 0.700 Normal 0.0-0.9 [facility] Comment on above: Result Comment: IG% - Immature Granulocytes (promyelocytes, myelocytes and metamyelocytes) > 1% indicates that a LEFT SHIFT is Present. Performed By: #### L 100.0100, L500.2500, L300.3900 #### [facility] [address] [place], [address] Lymphocytes/100 WBC (Bld) 19.8 % Normal 19-41 [facility] Comment on above: Performed By: #### L 100.0100, L500.2500, L300.3900 #### [facility] [address] [place], [address] MCH (RBC) [Entitic mass] 29.2 pg Normal 27.0-32.0 [facility] Comment on above: Performed By: #### L 100.0100, L500.2500, L300.3900 #### [facility] [address] [place], [address] MCHC (RBC) [Mass/Vol] 34.3 g/dL Normal 32-36 [facility] Comment on above: Performed By: #### L 100.0100, L500.2500, L300.3900 #### [facility] [address] [place], [address] MCV (RBC) [Entitic vol] 85.3 fL Normal 80-94 [facility] Comment on above: Performed By: #### L 100.0100, L500.2500, L300.3900 #### [facility] [address] [place], [address] Monocytes/100 WBC (Bld) 9.8 % Normal 0-10 [facility] Comment on above: Performed By: #### L 100.0100, L500.2500, L300.3900 #### [facility] [address] [place], [address] Neutrophils/100 WBC (Bld) 63.0 % Normal 47-70 [facility] Comment on above: Performed By: #### L 100.0100, L500.2500, L300.3900 #### [facility] [address] [place], [address] Nucleated RBC (Bld) [#/Vol] 0 10*3/uL Normal 0-5 [facility] Comment on above: Performed By: #### L 100.0100, L500.2500, L300.3900 #### [facility] [address] [place], [address] Platelet mean volume (Bld) [Entitic vol] 9.6 fL Normal 6.2-12.0 [facility] Comment on above: Performed By: #### L 100.0100, L500.2500, L300.3900 #### [facility] [address] [place], [address] Platelets (Bld) [#/Vol] 216 10*3/uL Normal 150-450 [facility] Comment on above: Performed By: #### L 100.0100, L500.2500, L300.3900 #### [facility] [address] [place], [address] RBC (Bld) [#/Vol] 4.48 10*6/uL Low 4.6-6.2 [facility] Comment on above: Performed By: #### L 100.0100, L500.2500, L300.3900 #### [facility] [address] [place], [address] RDW SD 38.9 fl Normal 35.1-43.9 [facility] Comment on above: Performed By: #### L 100.0100, L500.2500, L300.3900 #### [facility] [address] [place], [address] WBC (Bld) [#/Vol] 5.9 10*3/uL Normal 4.4-11.0 [facility] Comment on above: Performed By: #### L 100.0100, L500.2500, L300.3900 #### [facility] [address] [place], [address] Carbon dioxide measurementOr dered By: Yolanda Dean on 07-28-2024 CO2 [Moles/Vol] 24.0 mmol/L 21.0-32.0 [facility] Cardiology Visit Reporton Cardiology Visit Report [facility] [address] [place], [place] [address] OFFICE VISIT Date of Service: 07/28/24 MR#: [id number] Acct: [id number] Name: MICHAEL BATES Jr. Rep #: [id number] : 1955 Provider: CAMELIA Hurd Age/Sex: 69/M Location[place] [facility] Status: Signed HPI HPI History of Present Illness Details: Michael Bates is a 69-year-old old man with a history of coronary artery disease who presents for a follow-up evaluation. He does have a history of coronary artery disease with stenting to his mid LAD and ramus in 2016, ostial left circumflex in May 2020 and Jul 2021, proximal circumflex in October 2020, and mid RCA in April 2021. He also has a history of hypertension, hyperlipidemia, syncope and carotid artery stenosis. As you remember he had been having a lot of syncopal episodes and was referred to neurology and eventually had a loop recorder placed for syncope evaluation which thus far has not demonstrated any significant abnormalities. Due to his recurrent syncope he had been placed on fludrocortisone but said that he had an allergic reaction to it and so was put on midodrine. He continues to complain of chest discomfort and in December 2021 underwent a stress test which was negative for ischemia and subsequently in January of the same year underwent a cardiac catheterization which demonstrated diffuse coronary disease with previously placed stents noted in the LAD diagonal and ramus, circumflex artery and right coronary artery were all noted to be patent. Diffuse distal disease was noted no high-grade stenosis was present. He had been started on Ranexa which was discontinued due to nausea. He had a stress test in June 2023 that was negative for ischemia. He was admitted to [facility] on October 09, 2023 with chest discomfort. EKG had demonstrated ST depressions in V5 and V6. Troponins were negative. He did have an echocardiogram which demonstrated an ejection fraction of 60%.He did undergo a diagnostic heart catheterization which demonstrated 50% proximal LAD stenosis, 50 to 60% mid LAD stenosis, 70% proximal OM2 stenosis unchanged from previous study, 95% calcified proximal RCA and 90% calcified mid RCA and 70% 6 distal RCA. He underwent successful shockwave lithotripsy and stenting of his distal RCA. Patient was in the emergency room on October 15 for chest discomfort. Workup was negative. He did need to go use NTG for this. It did not work. He was cleaning the house. Rated the pain as a 4/10. It was to the left of his sternum. He was then in the emergency room on the for concerns over swelling in his tongue. He was advised to stop his losartan. We had increased his Ranexa to 1000 mg twice a day. Patient was in the hospital and December 2023 for chest pain. He did undergo a diagnostic stress test. This was negative for ischemia. At that time it was noted that he was on both Brilinta and Plavix. Plavix was discontinued. He does have chest pain that occurs daily, this is with walking, it is sharp. It can occur 3-4 times a day, he does not take NTG for this. He does not have any worsening SOB. He does not have any palpitations. He does sometimes feels that his heart will stop then go back to normal, it does not last long. He does sometimes have dizziness. He has not had any syncope. He does sometimes have pain in his legs with walking. He is also fatigued, and finds that he need sleep. All these symptoms are similar to what he had with CAD. Intake Vital Signs 04/19/24 08:17 07/28/24 08:11 Height 5 ft 10 in 5 ft 10 in Weight: 179 lb BMI 25.7 BP 126/74 H Blood Pressure Location Lt brachial Position Sitting Respiration 18 Pulse 72 Pulse Source Monitor Pulse Oximetry (%) 97 Intake Visit Reasons: 3 M FU Work Order Detailer Required: No Is patient in pain?: No Allergies fludrocortisone (From Florinef) Allergy (Severe, Verified 07/28/24 08:11) ANGIOEDEMA losartan Adverse Reaction (Severe, Verified 07/28/24 08:11) Angioedema iodine Adverse Reaction (Verified 07/28/24 08:11) unknown perfume Adverse Reaction (Verified 07/28/24 08:11) Other Medications ???Medication ???Instructions ???Recorded ???Confirmed ???Type aspirin 81 mg tablet,delayed 81 mg PO DAILY@0800 heart health 09/13/13 07/28/24 History release omega 6-tfx-poa-fish oil 1,000 mg 1,000 mg PO QDAY supplement 01/06/18 07/28/24 History (120 mg-180 mg) capsule (Fish Oil) ferrous sulfate 325 mg (65 mg 325 mg PO BID supplement 06/28/22 07/28/24 History iron) tablet ranolazine 1,000 mg 1,000 mg PO BID heart #60 tabs 10/30/23 07/28/24 Rx tablet,extended release,12 hr ticagrelor 90 mg tablet (Brilinta) 90 mg PO BID anti platelet #60 tabs 10/30/23 07/28/24 Rx zinc acetate 50 mg (zinc) capsule 50 mg PO DAILY supplement 0 (more content not included)... Normal [facility] Chest PA and Lateralon 07-28 Chest PA and Lateral [facility] [address] [place] [address] [id number] Chest PA and Lateral MR#: [id number] Acct: [id number] Name: MICHAEL BATES JrMukesh Rep #: [id number] : 1955 M 69 From: Brijesh Patrick DO PCP: Dr. Nadir Grady MD Status: REG CLI Study: Chest PA and Lateral Date of Exam: 07/28/24 Exam# [id number] Ordering Dr: Yolanda Dean [place] [id number] INDICATION: cath EXAMINATION/TECHNIQUE: X-RAY - XR Chest 2 Views COMPARISON: December 03, 2023 FINDINGS: LINES/DEVICES: None. LUNGS: No consolidation, edema or effusion. No pneumothorax. MEDIASTINUM AND CARDIOVASCULAR STRUCTURES: Cardiac silhouette not enlarged. Central airways and mediastinal contour are unremarkable. BONES AND SOFT TISSUES: Degenerative vertebral changes. RAD/Chest PA and Lateral IMPRESSION: No radiographic evidence of acute cardiopulmonary disease. Electronically Signed: Brijesh Patrick DO at 10:37 EST , CC: Dr. Nadir Grady MD; CAMELIA Julian Letter Sorting Machine Operator: Signed Normal [facility] Chloride measurementOrdered By: Yolanda Dean on 07-28-2024 Chloride [Moles/Vol] 107 mmol/L 98-107 [facility] Eosinophil percentageOrdered By: Yolanda Dean on 07-28-2024 Eosinophils/100 WBC (Bld) 5.9 % High 0-5 [facility] Erythrocyte distribution wid th ratioOrdered By: Yolanda Dean on 07-28-2024 Erythrocyte distribution width (RBC) [Ratio] 12.6 % 11.6-14.6 [facility] Erythrocyte distribution wid th standard deviationOrdered By: Yolanda Dean on 07-28-2024 Erythrocyte distribution width (RBC) [Entitic vol] 38.9 fL 35.1-43.9 [facility] Estimated glomerular filtrat ion rate (GFR) AmericanOrdered By: Yolanda Dean on 07-28-2024 Estimated GFR (MDRD) Amer 91 mL/min >60 [facility] Comment on above: GFR Calc Glomerular filtration rate ( GFR) estimationOrdered By: Yolanda Dean on 07-28-2024 Estimated GFR (MDRD) Non-Af Amer 76 mL/min >60 [facility] Comment on above: Non- GFR Calc Glucose measurementOrdered B y: Yolanda Dean on 07-28-2024 Glucose [Mass/Vol] 190 mg/dL High 74-106 [facility] Comment on above: Fasting Glucose resu lt greater than or equal to 126 mg/dL suggests DIABETES MELLITUS per A.D.A. criteria. Hematocrit Auto (Bld) [Volum e fraction]Ordered By: Yolanda Dean on 07-28-2024 Hematocrit (Bld) [Volume fraction] 38.2 % Low 40-54 [facility] Hemoglobin measurementOrdere d By: Yolanda Dean on 07-28-2024 Hemoglobin (Bld) [Mass/Vol] 13.1 g/dL 13.0-16. 5 [facility] Immature granulocytes/100 WB C Auto (Bld)Ordered By: Yolanda Dean on 07-28-2024 Immature granulocytes/100 WBC (Bld) 0.700 % 0.0-0.9 [facility] Comment on above: IG% - Immature Granu locytes (promyelocytes, myelocytes and metamyelocytes) > 1% indicates that a LEFT SHIFT is Present. International normalized rat io (INR) calculationOrdered By: Yolanda Dean on 07-28-2024 INR Coag (Bld) [Relative time] 0.9 {INR} [facility] Lymphocytes Auto (Unsp spec) [#/Vol]Ordered By: Yolanda Dean on 07-28-2024 Lymphocytes (Bld) [#/Vol] 1.17 10*3/uL 0.83-4.5 1 [facility] Lymphocytes/100 WBC Auto (Un sp spec)Ordered By: Yolanda Dean on 07-28-2024 Lymphocytes/100 WBC (Bld) 19.8 % 19-41 [facility] MCV (mean corpuscular volume ) determinationOrdered By: Yolanda Dean on 07-28-2024 MCV (RBC) [Entitic vol] 85.3 fL 80-94 [facility] Mean corpuscular hemoglobin (MCH) determinationOrdered By: Yolanda Dean on 07-28-2024 MCH (RBC) [Entitic mass] 29.2 pg 27.0-32.0 [facility] Mean corpuscular hemoglobin concentration (MCHC) determinationOrdered By: Yolanda Dean on 07-28-2024 MCHC (RBC) [Mass/Vol] 34.3 g/dL 32-36 [facility] Mean platelet volume determi nationOrdered By: Yolanda Dean on 07-28-2024 Platelet mean volume (Bld) [Entitic vol] 9.6 fL 6.2-12.0 [facility] Monocyte percentageOrdered B y: Yolanda Dean on 07-28-2024 Monocytes/100 WBC (Bld) 9.8 % 0-10 [facility] Neutrophil percentageOrdered By: Yolanda Dean on 07-28-2024 Neutrophils/100 WBC (Bld) 63.0 % 47-70 [facility] Nucleated red blood cell per centageOrdered By: Yolanda Dean on 07-28-2024 Nucleated RBC/100 WBC (Bld) [Ratio] 0 % 0-5 [facility] Platelet countOrdered By: Janette Dean on 07-28-2024 Platelets (Bld) [#/Vol] 216 10*3/uL 150-450 [facility] Potassium measurementOrdered By: Yolanda Dean on 07-28-2024 Potassium [Moles/Vol] 4.2 mmol/L 3.5-5.1 [facility] Prothrombin Time w/INRon INR Coag (PPP) [Relative time] 0.9 {INR} Normal [facility] Comment on above: Performed By: #### L 3410.9999, L505.5000 #### [facility] [address] [place], [address] PT Coag (PPP) [Time] 12.6 s Normal 11.7-14.9 [facility] Comment on above: Performed By: #### L 3410.9999, L505.5000 #### [facility] [address] [place], [address] Prothrombin timeOrdered By: Yolanda Dean on 07-28-2024 PT Coag (PPP) [Time] 12.6 s 11.7-14.9 [facility] RBC Auto (Bld) [#/Vol]Ordere d By: Yolanda Dean on 07-28-2024 RBC (Bld) [#/Vol] 4.48 10*6/uL Low 4.6-6.2 [facility] Serum anion gap measurementO rdered By: Yolanda Dean on 07-28-2024 Anion gap [Moles/Vol] 6 mmol/L 5-15 [facility] Serum or plasma calcium jaziel urement (mass/volume)Ordered By: Yolanda Dean on 07-28-2024 Calcium [Mass/Vol] 9.5 mg/dL 8.5-10.1 [facility] Serum or plasma creatinine m easurement (mass/volume)Ordered By: Yolanda Dean on 07-28-2024 Creatinine [Mass/Vol] 1.03 mg/dL 0.70-1.30 [facility] Comment on above: The validity of the calculated GFR & GFRAA in patients over 70 years has not been determined. Clinical correlation is essential. Serum or plasma urea nitroge n measurement (mass/volume)Ordered By: Yolanda Dean on 07-28-2024 Urea nitrogen [Mass/Vol] 17 mg/dL 7-18 [facility] Sodium levelOrdered By: Mariano Dean on 07-28-2024 Sodium [Moles/Vol] 137 mmol/L 136-145 [facility] White blood cell (WBC) count Ordered By: Yolanda Dean on 07-28-2024 WBC (Bld) [#/Vol] 5.9 10*3/uL 4.4-11.0 [facility] CNOVon 07-24-2024 CNOV Office Visit (UCWSTR ) MICHAEL BATES ([id number]) 1955 M Date Time Provider Department 07/24/24 9:15 AM BRIDGET JOSEPH WSTR During your visit today, we recorded the following information about you: Temperature Pulse Respiration Blood pressure 97.7 degrees 80/minute 16/minute 124/64 Weight 81.9 kg Bridget Joseph APRN.CNP 07/24/2024 10:19 AM Signed This note was created using Kicksendriter. Subjective Michael Bates is a 69 year old male. HPI Yesterday pt tripped and fell injuring his right wrist. Denies any injury to head or loc Review of Systems Objective BP 124/64 Pulse 80 Temp 36.5 ?C (97.7 ?F) Resp 16 Wt 81.9 kg (180 lb 8.9 oz) SpO2 96% BMI 26.82 kg/m? Physical Exam Vitals and nursing note reviewed. Constitutional: General: He is not in acute distress. Appearance: Normal appearance. He is not ill-appearing. HENT: Head: Normocephalic. Pulmonary: Effort: Pulmonary effort is normal. Musculoskeletal: General: Normal range of motion. Cervical back: Normal range of motion. Comments: Diffuse tenderness over the dorsal aspect of right wrist with no obvious swelling or deformities noted Skin: General: Skin is warm and dry. Neurological: General: No focal deficit present. Mental Status: He is alert. Psychiatric: Mood and Affect: Mood normal. Behavior: Behavior normal. Assessment and Plan ASSESSMENT/PLAN: 1. Wrist pain, right - ICD9: 719.43, ICD10: M25.531 X-ray of the wrist shows no acute abnormalities. Instructed patient that he should use ibuprofen or Tylenol as needed for pain and slowly resume activities as tolerated. He should follow-up with PCP. - XR WRIST GENERAL 3V PA/LAT/OBL RIGHT Bridget Joseph APRN.CNP Allergies As of Date: 07/24/2024 Noted Allergy Reaction FLORINEF (FLUDROCORTISONE) 04/25/2022 18 - Angioedema LOSARTAN 10/24/2023 18 - Angioedema PERFUMES 01/20/2012 14 - Other: See Comments Comments: sneezing Date Reviewed: 07/24/2024 Reviewed by: Bridget Joseph APRN.CNP - Fully Assessed Reason for Visit: Wrist/forearm Injury [0889] Cmt: right wrist pain x 1 day, fall Primary Visit Diagnosis:Wrist pain, right [M25.531] Order(s):XR WRIST GENERAL 3V PA/LAT/OBL RIGHT [[id number]] Order #: [id number] FUTURE Prescriptions as of 07/24/2024 - empagliflozin (JARDIANCE) 10 mg tablet Take 1 tablet by mouth once daily. Take 1 tablet once daily in the morning - Zinc Gluconate 50 mg tablet Take 50 mg by mouth once daily. - ferrous sulfate 325 mg (65 mg iron) tablet Take 1 tablet by mouth two times a day with meals. - metFORMIN ER (GLUCOPHAGE XR) 500 mg 24 hr tablet Take 2 tablets by mouth two times a day. - amLODIPine (NORVASC) 10 mg tablet Take 1 tablet by mouth once daily. Per [facility] - atorvastatin (LIPITOR) 80 mg tablet Take 1 tablet by mouth once daily. Managed by cardiology, Dr. Kern - omeprazole (PRILOSEC) 40 mg capsule Take 1 capsule by mouth once daily. Per [facility] - ranolazine ER (RANEXA) 1,000 mg tab ER 12 hr Take 1 tablet by mouth two times a day. Per [facility] - carvedilol (COREG) 3.125 mg tablet Take 1 tablet by mouth two times a day. Per [facility] - ticagrelor (BRILINTA) 90 mg tablet Take 1 tablet by mouth two times a day. Per [facility] - docosahexaenoic acid/epa (FISH OIL ORAL) Take by mouth as directed. - Blood-Glucose Meter monitoring kit Glucose Meter of Choice - Kit - Dx: Type 2 DM - Uncontrolled E11.65 - Lancets lancets Test blood sugar(s) 2 times daily. Dx: Type 2 DM - Uncontrolled E11.65 Insulin: No - blood sugar diagnostic (BLOOD GLUCOSE TEST) test strip Test blood sugar(s) 2 times daily. Dx: Type 2 DM - Uncontrolled E11.65 Insulin: No - nitroglycerin sublingual (NITROSTAT) 0.4 mg SL tablet Dissolve 1 tablet under the tongue every 5 minutes as needed for chest pain. - aspirin, enteric coated (ECOTRIN LOW STRENGTH) 81 mg EC tablet Take 1 tablet by mouth once daily. - Blood Pressure Monitor kit 1 Each once daily. 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 Normal [facility] XR WRIST 3V PA/LAT/OBL RTon 07-24-2024 XR WRIST 3V PA/LAT/OBL RT * * *Final Rep ort* * * DATE OF EXAM: Jul 24 2024 9:42AM WOX 5271 - XR WRIST 3V PA/LAT/OBL RT / PROCEDURE REASON: Wrist pain, right * * * * Physician Interpretation * * * * EXAM TITLE: XR WRIST 3V PA/LAT/OBL RT EXAM DATE/TIME: 07/24/2024 9:42 AM COMPARISON: None. CLINICAL INDICATION/HISTORY: Wrist pain TECHNIQUE: PA, lateral and oblique views of right wrist are presented. FINDINGS: No fractures or subluxations are noted. A few surgical clips are identified. The joint spaces are well preserved. The mineralization of the bones is normal. There is no significant soft tissue swelling. IMPRESSION: No acute radiographic abnormalities seen in the right wrist. Letter Sorting Machine Operator: PSCB Transcribe Date/Time: Jul 24 2024 10:00A Dictated by : JASSI NEWSOME MD This examination was interpreted and the report reviewed and electronically signed by: JASSI NEWSOME MD on Jul 24 2024 10:02AM EST [id number] Normal [facility] Wrist - right PA and Late ral and Obliqueon 07-24-2024 IMPRESSION: No acute radiographic abnormalities seen in the right wrist. Letter Sorting Machine Operator: FAWN Transcribe Date/Time: Jul 24 2024 10:00A Dictated by : JASSI NEWSOME MD This examination was interpreted and the report reviewed and electronically signed by: JASSI NEWSOME MD on Jul 24 2024 10:02AM [facility] DIVISION OF RADIOLOGY * * *Final Report* * * DATE OF EXAM: Jul 24 2024 9:42AM WOX 5271 - XR WRIST 3V PA/LAT/OBL RT / PROCEDURE REASON: Wrist pain, right * * * * Physician Interpretation * * * * EXAM TITLE: XR WRIST 3V PA/LAT/OBL RT EXAM DATE/TIME: 07/24/2024 9:42 AM COMPARISON: None. CLINICAL INDICATION/HISTORY: Wrist pain TECHNIQUE: PA, lateral and oblique views of right wrist are presented. FINDINGS: No fractures or subluxations are noted. A few surgical clips are identified. The joint spaces are well preserved. The mineralization of the bones is normal. There is no significant soft tissue swelling. DIVISION OF RADIOLOGY Provider, [facility] - 07/24/2024 * * *Final Report* * * DATE OF EXAM: Jul 24 2024 9:42AM WOX 5271 - XR WRIST 3V PA/LAT/OBL RT / PROCEDURE REASON: Wrist pain, right * * * * Physician Interpretation * * * * EXAM TITLE: XR WRIST 3V PA/LAT/OBL RT EXAM DATE/TIME: 07/24/2024 9:42 AM COMPARISON: None. CLINICAL INDICATION/HISTORY: Wrist pain TECHNIQUE: PA, lateral and oblique views of right wrist are presented. FINDINGS: No fractures or subluxations are noted. A few surgical clips are identified. The joint spaces are well preserved. The mineralization of the bones is normal. There is no significant soft tissue swelling. IMPRESSION IMPRESSION: No acute radiographic abnormalities seen in the right wrist. Letter Sorting Machine Operator: FAWN Transcribe Date/Time: Jul 24 2024 10:00A Dictated by : JASSI NEWSOME MD This examination was interpreted and the report reviewed and electronically signed by: JASSI NEWSOME MD on Jul 24 2024 10:02AM [facility] Radiology Study observation (narrative) [facility] XR Wrist - right PA and Late ral and ObliqueOrdered By: Ccf Provider on 07-24-2024 [facility] Jesse 07-21-2024 CNPN Telephone (FAMPWS) ADIAMICHAEL BROCK ([id number]) 1955 M Date Time Provider Department 07/21/24 MARTHA BOSTON [facility] During your visit today, we recorded the following information about you: Martha Boston PA-C 07/21/2024 11:31 AM Signed A1c is up to 9.3%. last year it was 7.4%. we need to address this. Is he willing to start a once weekly injectable to help lower his A1c. His cholesterol is normal Alk phos is elevated. Need to repeat labs in 2 weeks. These ones need to be fasting. Thanks. HOANG Candelario Amanda, RN 07/21/2024 12:04 PM Signed Pt called and is notified of providers results and instructions. Pt voices understanding. Pt states he isn't sure about giving himself a weekly injectable. Pt states pills would be better and was asking if provider could switch to this. Please call and advise. RIAN Santoro Rayanne, PA-C 07/21/2024 12:15 PM Signed We will see if insurance will cover jardiance. It is once a day. HOANG Candelario Sherill A, LPN 07/21/2024 1:18 PM Signed Pt notified of same. He will check with pharmacy for medication. Pt will contact office if any problems. Luis E Agudelo LPN Allergies As of Date: 07/21/2024 Noted Allergy Reaction FLORINEF (FLUDROCORTISONE) 04/25/2022 18 - Angioedema LOSARTAN 10/24/2023 18 - Angioedema PERFUMES 01/20/2012 14 - Other: See Comments Comments: sneezing Date Reviewed: 07/20/2024 Reviewed by: Luis E Agudelo LPN - Fully Assessed Reason for Visit: Results [95] Primary Visit Diagnosis:Elevated alkaline phosphatase level [R74.8] Other Visit Diagnosis:Type 2 diabetes mellitus with diabetic neuropathy, without long-term current use of insulin (HCC) [E11.40] Order(s):ALK PHOS ISOENZYM BL [SQALKISO] Order #: [id number] FUTURE GGT [SQGGT] Order #: [id number] FUTURE empagliflozin (JARDIANCE) 10 mg tabletTake 1 tablet by mouth once daily. Take 1 tablet once daily in the morningDisp: 30 tabletRfl: 5 Prescriptions as of 07/21/2024 - empagliflozin (JARDIANCE) 10 mg tablet Take 1 tablet by mouth once daily. Take 1 tablet once daily in the morning - Zinc Gluconate 50 mg tablet Take 50 mg by mouth once daily. - ferrous sulfate 325 mg (65 mg iron) tablet Take 1 tablet by mouth two times a day with meals. - metFORMIN ER (GLUCOPHAGE XR) 500 mg 24 hr tablet Take 2 tablets by mouth two times a day. - amLODIPine (NORVASC) 10 mg tablet Take 1 tablet by mouth once daily. Per [facility] - atorvastatin (LIPITOR) 80 mg tablet Take 1 tablet by mouth once daily. Managed by cardiology, Dr. Kern - omeprazole (PRILOSEC) 40 mg capsule Take 1 capsule by mouth once daily. Per [facility] - ranolazine ER (RANEXA) 1,000 mg tab ER 12 hr Take 1 tablet by mouth two times a day. Per [facility] - carvedilol (COREG) 3.125 mg tablet Take 1 tablet by mouth two times a day. Per [facility] - ticagrelor (BRILINTA) 90 mg tablet Take 1 tablet by mouth two times a day. Per [facility] - docosahexaenoic acid/epa (FISH OIL ORAL) Take by mouth as directed. - Blood-Glucose Meter monitoring kit Glucose Meter of Choice - Kit - Dx: Type 2 DM - Uncontrolled E11.65 - Lancets lancets Test blood sugar(s) 2 times daily. Dx: Type 2 DM - Uncontrolled E11.65 Insulin: No - blood sugar diagnostic (BLOOD GLUCOSE TEST) test strip Test blood sugar(s) 2 times daily. Dx: Type 2 DM - Uncontrolled E11.65 Insulin: No - nitroglycerin sublingual (NITROSTAT) 0.4 mg SL tablet Dissolve 1 tablet under the tongue every 5 minutes as needed for chest pain. - aspirin, enteric coated (ECOTRIN LOW STRENGTH) 81 mg EC tablet Take 1 tablet by mouth once daily. - Blood Pressure Monitor kit 1 Each once daily. 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] 12/04/2007 Unspecified pruritic disorder [L29.9] 03/02/2009 04/12/2020 Lumbago [M54.50] 02/09/2010 Sciatica [M54.30] 02/09/2010 Neck sprain and strain [S13.9XXA] 07/30/2010 08/30/2010 Other physical therapy [[id number]] 08/16/2010 08/30/2010 Essential hypertension, benign [I10] 01/17/2012 DDD (degenerative disc disease), cervical [M50.*01/20/2012 Cervical spondylosis [M47.812] 01/20/2012 Chronic sinusitis [J32.9] Hyperlipidemia [E78.5] 08/04/2015 Mixed hyperlipidemia [E78.2] 08/04/2015 Lumbar radiculopathy [M54.16] Chronic post-traumatic headache [G44.329] 08/04/2015 Bilateral occipital neuralgia [M54.81] 08/04/2015 Seborrheic dermatitis [L21.9] 08/04/2015 Elevated LFTs [R79.89] 08/05/2015 Carotid stenos (more content not included)... Normal [facility] CBC W Auto Differential pane l (Bld)on 07-20-2024 Basophils (Bld) [#/Vol] 0.06 10*3/uL Normal <0.11 [facility] Comment on above: Order Comment: Speci men Type: BLOOD SPECIMENOrdering Facility: [facility] Address: [address] [place] [address] Performed By: #### 5 7021-8 ####[facility] LABCLIA [id number] [place] [address] [place] Basophils/100 WBC (Bld) 0.9 % Normal [facility] Comment on above: Order Comment: Speci men Type: BLOOD SPECIMENOrdering Facility: [facility] Address: [address] [place] [address] Performed By: #### 5 7021-8 ####[facility] LABCLIA [id number] [place] [address] [place] Differential cell count method Nom (Bld) Auto Normal [facility] Comment on above: Order Comment: Speci men Type: BLOOD SPECIMENOrdering Facility: [facility] Address: [address] [place] [address] Performed By: #### 5 7021-8 ####[facility] LABCLIA [id number] [place] [address] [place] Eosinophils (Bld) [#/Vol] 0.25 10*3/uL Normal <0.46 [facility] Comment on above: Order Comment: Speci men Type: BLOOD SPECIMENOrdering Facility: [facility] Address: [address] [place] [address] Performed By: #### 5 7021-8 ####[facility] LABCLIA [id number] [place] [address] [place] Eosinophils/100 WBC (Bld) 3.6 % Normal [facility] Comment on above: Order Comment: Speci men Type: BLOOD SPECIMENOrdering Facility: [facility] Address: [address] [place] [address] Performed By: #### 5 7021-8 ####[facility] LABCLIA [id number] [place] [address] [place] Erythrocyte distribution width (RBC) [Ratio] 12.6 % Normal 11.5-15.0 [facility] Comment on above: Order Comment: Speci men Type: BLOOD SPECIMENOrdering Facility: [facility] Address: [address] [place] [address] Performed By: #### 5 7021-8 ####[facility] LABIA [id number] [place] [address] [place] Hematocrit (Bld) [Volume fraction] 40.5 % Normal 39.0-51.0 [facility] Comment on above: Order Comment: Speci men Type: BLOOD SPECIMENOrdering Facility: [facility] Address: [address] [place] [address] Performed By: #### 5 7021-8 ####[facility] LABIA [id number] [place] [address] [place] Hemoglobin (Bld) [Mass/Vol] 13.3 g/dL Normal 13.0-17. 0 [facility] Comment on above: Order Comment: Speci men Type: BLOOD SPECIMENOrdering Facility: [facility] Address: [address] [place] [address] Performed By: #### 5 7021-8 ####[facility] LABIA [id number] [place] [address] [place] Immature granulocytes (Bld) [#/Vol] 10*3/uL Normal <0.10 [facility] Comment on above: Order Comment: Speci men Type: BLOOD SPECIMENOrdering Facility: [facility] Address: [address] [place] [address] Performed By: #### 5 7021-8 ####[facility] LABCLIA [id number] [place] [address] [place] Immature granulocytes/100 WBC (Bld) 0.3 % Normal [facility] Comment on above: Order Comment: Speci men Type: BLOOD SPECIMENOrdering Facility: [facility] Address: [address] [place] [address] Performed By: #### 5 7021-8 ####[facility] LABCLIA [id number] [place] [address] [place] Lymphocytes (Bld) [#/Vol] 1.06 10*3/uL Normal 1.00-4.0 0 [facility] Comment on above: Order Comment: Speci men Type: BLOOD SPECIMENOrdering Facility: [facility] Address: [address] [place] [address] Performed By: #### 5 7021-8 ####[facility] LABCLIA [id number] [place] [address] [place] Lymphocytes/100 WBC (Bld) 15.3 % Normal [facility] Comment on above: Order Comment: Speci men Type: BLOOD SPECIMENOrdering Facility: [facility] Address: [address] [place] [address] Performed By: #### 5 7021-8 ####[facility] LABCLIA [id number] [place] [address] [place] MCH (RBC) [Entitic mass] 28.4 pg Normal 26.0-34.0 [facility] Comment on above: Order Comment: Speci men Type: BLOOD SPECIMENOrdering Facility: [facility] Address: [address] [place] [address] Performed By: #### 5 7021-8 ####[facility] LABIA [id number] [place] [address] [place] MCHC (RBC) [Mass/Vol] 32.8 g/dL Normal 30.5-36.0 [facility] Comment on above: Order Comment: Speci men Type: BLOOD SPECIMENOrdering Facility: [facility] Address: [address] [place] [address] Performed By: #### 5 7021-8 ####[facility] LABCLIA [id number] [place] [address] [place] MCV (RBC) [Entitic vol] 86.5 fL Normal 80.0-100.0 [facility] Comment on above: Order Comment: Speci men Type: BLOOD SPECIMENOrdering Facility: [facility] Address: [address] [place] [address] Performed By: #### 5 7021-8 ####[facility] LABIA [id number] [place] [address] [place] Monocytes (Bld) [#/Vol] 0.57 10*3/uL Normal <0.87 [facility] Comment on above: Order Comment: Speci men Type: BLOOD SPECIMENOrdering Facility: [facility] Address: [address] [place] [address] Performed By: #### 5 7021-8 ####[facility] LABIA [id number] [place] [address] [place] Monocytes/100 WBC (Bld) 8.2 % Normal C [facility] Comment on above: Order Comment: Speci men Type: BLOOD SPECIMENOrdering Facility: [facility] Address: [address] [place] [address] Performed By: #### 5 7021-8 ####[facility] LABIA [id number] [place] [address] [place] Neutrophils (Bld) [#/Vol] 4.96 10*3/uL Normal 1.45-7.5 0 [facility] Comment on above: Order Comment: Speci men Type: BLOOD SPECIMENOrdering Facility: [facility] Address: [address] [place] [address] Performed By: #### 5 7021-8 ####[facility] LABIA [id number] [place] [address] [place] Neutrophils/100 WBC (Bld) 71.7 % Normal [facility] Comment on above: Order Comment: Speci men Type: BLOOD SPECIMENOrdering Facility: [facility] Address: [address] [place] [address] Performed By: #### 5 7021-8 ####[facility] LABCLIA [id number] [place] [address] [place] Nucleated RBC (Bld) [#/Vol] 10*3/uL Normal <0.01 [facility] Comment on above: Order Comment: Speci men Type: BLOOD SPECIMENOrdering Facility: [facility] Address: [address] [place] [address] Performed By: #### 5 7021-8 ####[facility] LABIA [id number] [place] [address] [place] Nucleated RBC/100 WBC (Bld) [Ratio] 0.0 /100 WBC Normal [facility] Comment on above: Order Comment: Speci men Type: BLOOD SPECIMENOrdering Facility: [facility] Address: [address] [place] [address] Performed By: #### 5 7021-8 ####[facility] LABIA [id number] [place] [address] [place] Platelet mean volume (Bld) [Entitic vol] 9.9 fL Normal 9.0-12.7 [facility] Comment on above: Order Comment: Speci men Type: BLOOD SPECIMENOrdering Facility: [facility] Address: [address] [place] [address] Performed By: #### 5 7021-8 ####[facility] LABIA [id number] [place] [address] [place] Platelets (Bld) [#/Vol] 218 10*3/uL Normal 150-400 [facility] Comment on above: Order Comment: Speci men Type: BLOOD SPECIMENOrdering Facility: [facility] Address: [address] [place] [address] Performed By: #### 5 7021-8 ####[facility] LABCLIA [id number] [place] [id number] [place] RBC (Bld) [#/Vol] 4.68 10*6/uL Normal 4.20-6.00 [facility] Comment on above: Order Comment: Speci men Type: BLOOD SPECIMENOrdering Facility: [facility] Address: [address] [place] [address] Performed By: #### 5 7021-8 ####[facility] LABCLIA [id number] [place] [address] [place] WBC (Bld) [#/Vol] 6.92 10*3/uL Normal 3.70-11.00 [facility] Comment on above: Order Comment: Speci men Type: BLOOD SPECIMENOrdering Facility: [facility] Address: [address] [place] [address] Performed By: #### 5 7021-8 ####[facility] LABCLIA [id number] [address] [facility] CNOVon 07-20-2024 CNOV Office Visit (FAMPWS ) MICHAEL BATES ([id number]) 1955 M Date Time Provider Department 07/20/24 7:20 AM MARTHA BOSTON FAMPWS During your visit today, we recorded the following information about you: Temperature Pulse Respiration Blood pressure 97.8 degrees 71/minute 16/minute 132/62 Weight Height 77.6 kg 1.747 m Martha Boston PA-C 07/20/2024 9:14 AM Signed Michael Bates is a 69 year old male here for a Medicare wellness visit. Medicare Health Risk Assessment General Health Fair Exercise: Minutes/Day 10 Exercise: Days/Week 5 Alcohol: Daily Use no Alcohol: Drinks/Day - Alcohol: 6 or more drinks - Feel off balance yes Concerns: Teeth/Dentures no Concerns: Sexual function Troubled by feelings no Frequency: Eating healthy diet sometimes ADLs requiring help no Safety precautions in home/vehicle yes Smoke, vape, chews tobacco no Difficulty hearing Some decreased Difficulty seeing no Current Providers Specialists: I have reviewed specialist-related care of the patient in the medical record. Medical/Family history review Reviewed and updated problem list, medical/surgical/famil y/social history, medications, and allergies. Opioid use review Opioid Medications (last 90 days) No data to display Anxiety/Depression screening PHQ-2 Score: 0 (Lower risk for depression) Recommendation: no further intervention at this time Cognitive screening Mini Cog Score: 4 Cognitive screening reviewed and No further action needed (score 3-5). Functional Observation Was the patient's Timed Up AND Go test unsteady or >= 12 seconds? No Advance Care Planning Surrogate decision maker and/or advance care plan documented Measurements BP 132/62 (BP Site: Left Arm, BP Position: Sitting, BP Cuff Size: Large Adult) Pulse 71 Temp 36.6 ?C (97.8 ?F) Resp 16 Ht 174.8 cm (5' 8.8) Wt 77.6 kg (171 lb) SpO2 97% BMI 25.40 kg/m? Vision Screening: Follows with optometry/ophthalmolog y Assessment/Plan Medicare annual wellness visit, subsequent (Z00.00) - Counseled on healthy diet and regular exercise - Fall avoidance information provided - Personalized prevention plan provided Chief Complaint Patient presents with: Medicare Wellness Exam HPI Michael Bates is a 69 year old male who presents here today for extensive exam. Patient with hx of DM2, hyperlipidemia, HTN, GERD, Adjustment disorder, Carotid stenosis, BPH, Chronic neck pain, and those as below. Patient overall doing okay. Having episode of falling asleep randomly in the evening. Seeing cardiology. No appetite. Has lost a lot of weight. Past medical history, appointments, medications, allergies reviewed. [...] dermatitis 08/04/2015 Thrombosis of right ulnar artery (more content not included)... Normal [facility] Comprehensive metabolic 2000 panelon 07-20-2024 Albumin [Mass/Vol] 4.9 g/dL Normal 3.9-4.9 [facility] Comment on above: Order Comment: Speci men Type: BLOOD SPECIMENOrdering Facility: [facility] Address: [address] [place] [address] Performed By: #### 5 0190-8, LIPNF, 3015-3, 55674-0 ####[facility] LABCLIA [id number] [place] [address] [place] ALP [Catalytic activity/Vol] 144 U/L High 38-113 [facility] Comment on above: Order Comment: Speci men Type: BLOOD SPECIMENOrdering Facility: [facility] Address: [address] [place] [address] Performed By: #### 5 0190-8, LIPNF, 3015-3, 53472-9 ####[facility] LABCLIA [id number] [place] [address] [place] ALT [Catalytic activity/Vol] 19 U/L Normal 10-54 [facility] Comment on above: Order Comment: Speci men Type: BLOOD SPECIMENOrdering Facility: [facility] Address: [address] [place] [address] Performed By: #### 5 0190-8, LIPNF, 3015-3, 42386-8 ####[facility] LABCLIA [id number] [place] [id number] [place] Anion gap [Moles/Vol] 14 mmol/L Normal 8-15 [facility] Comment on above: Order Comment: Speci men Type: BLOOD SPECIMENOrdering Facility: [facility] Address: [address] [place] [address] Performed By: #### 5 0190-8, LIPNF, 3015-3, 20045-4 ####[facility] LABCLIA [id number] [place] [address] [place] AST [Catalytic activity/Vol] 16 U/L Normal 14-40 [facility] Comment on above: Order Comment: Speci men Type: BLOOD SPECIMENOrdering Facility: [facility] Address: [address] [place] [address] Performed By: #### 5 0190-8, LIPNF, 3015-3, 74581-2 ####[facility] LABIA [id number] [place] [address] [place] Bilirubin [Mass/Vol] 0.6 mg/dL Normal 0.2-1.3 [facility] Comment on above: Order Comment: Speci men Type: BLOOD SPECIMENOrdering Facility: [facility] Address: [address] [place] [address] Performed By: #### 5 0190-8, LIPNF, 3015-10, 75755-2 ####[facility] LABIA [id number] [place] [address] [place] Calcium [Mass/Vol] 9.6 mg/dL Normal 8.5-10.2 [facility] Comment on above: Order Comment: Speci men Type: BLOOD SPECIMENOrdering Facility: [facility] Address: [address] [place] [address] Performed By: #### 5 0190-8, LIPNF, 3015-, 48743-6 ####[facility] LABIA [id number] [place] [address] [place] Chloride [Moles/Vol] 98 mmol/L Normal 98-107 [facility] Comment on above: Order Comment: Speci men Type: BLOOD SPECIMENOrdering Facility: [facility] Address: [address] [place] [address] Performed By: #### 5 0190-8, LIPNF, 3015-3, 97966-8 ####[facility] LABCLIA [id number] [place] [address] [place] CO2 [Moles/Vol] 23 mmol/L Normal 22-30 [facility] Comment on above: Order Comment: Speci men Type: BLOOD SPECIMENOrdering Facility: [facility] Address: [address] [place] [address] Performed By: #### 5 0190-8, LIPHELEN, 3015-3, 19027-8 ####[facility] LABCLIA [id number] [place] [address] [place] Creatinine [Mass/Vol] 0.90 mg/dL Normal 0.73-1.22 [facility] Comment on above: Order Comment: Speci men Type: BLOOD SPECIMENOrdering Facility: [facility] Address: [address] [place] [address] Performed By: #### 5 0190-8, LIPHELEN, 3015-10, ####[facility] LABIA [id number] [place] [address] [place] Creatinine and Glomerular filtration rate.predicted panel (S/P/Bld) 91 mL/min/1.73m??? Normal >=60 [facility] Comment on above: Order Comment: Speci men Type: BLOOD SPECIMENOrdering Facility: [facility] Address: [address] [place] [address] Result Comment: Abril mated Glomerular Filtration Rate (eGFR) is calculated using the 2020 CKD-EPI creatinine equation. This equation utilizes serum creatinine, sex, and age as parameters. The creatinine assay has traceable calibration to isotope dilution-mass spectrometry. Refer to KDIGO guidelines for clinical interpretation. In patients with unstable renal function, e.g. those with acute kidney injury, the eGFR may not accurately reflect actual GFR. Performed By: #### 5 0190-8, LIPNF, 3015-3, ####[facility] LABCLIA [id number] [place] [id number] [place] Glucose [Mass/Vol] 253 mg/dL High 74-99 [facility] Comment on above: Order Comment: Speci men Type: BLOOD SPECIMENOrdering Facility: [facility] Address: [address] [place] [address] Result Comment: The [place] Diabetes Association (ADA) provides guidance for cutoff values for fasting glucose and random glucose. The ADA defines fasting as no caloric intake for at least 8 hours. Fasting plasma glucose results between 100 to 125 mg/dL indicate increased risk for diabetes (prediabetes). Fasting plasma glucose results greater than or equal to 126 mg/dL meet the criteria for diagnosis of diabetes. In the absence of unequivocal hyperglycemia, results should be confirmed by repeat testing. In a patient with classic symptoms of hyperglycemia or hyperglycemic crisis, random plasma glucose results greater than or equal to 200 mg/dL meet the criteria for diagnosis of diabetes. Reference: Standards of Medical Care in Diabetes 2016, [place] Diabetes Association. Diabetes Care. 2016.39(Suppl 1). Performed By: #### 5 0190-8, LIPNF, 3015-3, 61318-7 ####[facility] LABCLIA [id number] [place] [address] [place] Potassium [Moles/Vol] 4.2 mmol/L Normal 3.7-5.1 [facility] Comment on above: Order Comment: Walter sexton Type: BLOOD SPECIMENOrdering Facility: [facility] Address: [address] [place] [address] Performed By: #### 5 0190-8, LIPNF, 3015-3, 62124-5 ####[facility] LABCLIA [id number] [place] [address] [place] Protein [Mass/Vol] 7.8 g/dL Normal 6.3-8.0 [facility] Comment on above: Order Comment: Speci men Type: BLOOD SPECIMENOrdering Facility: [facility] Address: [address] [place] [address] Performed By: #### 5 0190-8, LIPNF, 6-3, 31555-1 ####[facility] LABCLIA [id number] [place] [address] [place] Sodium [Moles/Vol] 135 mmol/L Low 136-144 [facility] Comment on above: Order Comment: Speci men Type: BLOOD SPECIMENOrdering Facility: [facility] Address: [address] [place] [address] Performed By: #### 5 0190-8, LIPNF, 3016-3, 23869-9 ####[facility] LABCLIA [id number] [place] [address] [place] Urea nitrogen [Mass/Vol] 14 mg/dL Normal 9-24 [facility] Comment on above: Order Comment: Nuhai men Type: BLOOD SPECIMENOrdering Facility: [facility] Address: [address] [place] [address] Performed By: #### 5 0190-8, LIPNF, 3016-3, 83699-8 ####[facility] LABCLIA [id number] [place] [address] [place] HbA1c (Bld)on 07-20-2024 Average glucose Estimated from glycated hemoglobin (Bld) [Mass/Vol] 220 mg/dL Normal [facility] Comment on above: Order Comment: Nuhai men Type: BLOOD SPECIMENOrdering Facility: [facility] Address: [address] [place] [address] Result Comment: eAG: (Estimated average glucose) is a calculated value from HgbA1c and is district representative of the average blood glucose level in the last 2-3 month period. Performed By: #### 5 5454-3 ####[facility] LABCLIA [id number] [place] [address] [place] HbA1c (Bld) [Mass fraction] 9.3 % High 4.3-5.6 [facility] Comment on above: Order Comment: Nuhai men Type: BLOOD SPECIMENOrdering Facility: [facility] Address: [address] [place] [address] Result Comment: [place] Diabetes Association guidelines indicate that patients with HgbA1c in the range 5.7-6.4% are at increased risk for development of diabetes, and intervention by lifestyle modification may be beneficial. HgbA1c greater or equal to 6.5% is considered diagnostic of diabetes. Performed By: #### 5 5454-3 ####[facility] LABCLIA [id number] [address] [address] [place] Iron and Iron binding capaci ty panelon 07-20-2024 Iron [Mass/Vol] 79 ug/dL Normal 41-186 [facility] Comment on above: Order Comment: Speci men Type: BLOOD SPECIMENOrdering Facility: [facility] Address: [address] [place] [address] Performed By: #### 5 0190-8, LIPNF, 3015-10, 24472-5 ####[facility] [id number] [address] [place] Iron binding capacity [Mass/Vol] 372 ug/dL Normal 232-386 [facility] Comment on above: Order Comment: Speci men Type: BLOOD SPECIMENOrdering Facility: [facility] Address: [address] [place] [address] Performed By: #### 5 0190-8, LIPNF, 3015-10, 45821-6 ####[facility] LABIA [id number] [place] [address] [place] Iron/TIBC [Molar ratio] 21.2 % Normal 15.0-57.0 [facility] Comment on above: Order Comment: Speci men Type: BLOOD SPECIMENOrdering Facility: [facility] Address: [address] [place] [address] Performed By: #### 5 0190-8, LIPNF, 3015-10, 11009-1 ####[facility] LABIA [id number] [place] [id number] [place] LIPID PANEL, NONFASTINGon Cholesterol [Mass/Vol] 114 mg/dL Normal <200 [facility] Comment on above: Order Comment: Speci men Type: BLOOD SPECIMENOrdering Facility: [facility] Address: [address] [place] [address] Result Comment: <200 mg/dL, Desirable 200-239 mg/dL, Borderline high >239 mg/dL, High Performed By: #### 5 0190-8, LIPNF, 3016-3, 79076-5 ####[facility] LABCLIA [id number] [place] [address] [place] HDL CHOLESTEROL, NF 43 mg/dL Normal >39 [facility] Comment on above: Order Comment: Speci men Type: BLOOD SPECIMENOrdering Facility: [facility] Address: [address] [place] [address] Result Comment: 40-5 9 mg/dL, Acceptable >59 mg/dL, High: Negative risk factor for coronary heart disease <40 mg/dL, Low: Positive risk factor for coronary heart disease Performed By: #### 5 0190-8, LIPNF, 3015-3, 71768-6 ####[facility] LABCLIA [id number] [place] [address] [place] LDL CHOLESTEROL, NF 56 mg/dL Normal <100 [facility] Comment on above: Order Comment: Speci men Type: BLOOD SPECIMENOrdering Facility: [facility] Address: [address] [place] [address] Result Comment: <100 mg/dL, Optimal 100-129 mg/dL, Near optimal/above optimal 130-159 mg/dL, Borderline high 160-189 mg/dL, High >189 mg/dL, Very high Secondary prevention optimal LDL Cholesterol levels are recommended to be < 70 mg/dL Performed By: #### 5 0190-8, LIPNF, 3015-3, 01480-6 ####[facility] LABCLIA [id number] [place] [address] [place] LDL/HDL RATIO, NF 1.30 mg/dL Normal <2.54 [facility] Comment on above: Order Comment: Speci men Type: BLOOD SPECIMENOrdering Facility: [facility] Address: [address] [place] [address] Result Comment: Zana issa: 1. National Cholesterol Education Program ATP III Guideline At-A-Glance Quick Desk Reference: National Heart, Lung, and Blood [place]. National Institutes of Health. 2001: NIH Publication No. 01-3305. 2. An International Atherosclerosis Society position paper: global recommendations for the management of dyslipidemia: executive summary, Atherosclerosis. 2014: 232(2):410-413. Performed By: #### 5 0190-8, LIPNF, 3015-3, 72511-3 ####[facility] LABCLIA [id number] [place] [address] [place] NON HDL CHOL, NF 71 mg/dL Normal <130 [facility] Comment on above: Order Comment: Nuhakati sexton Type: BLOOD SPECIMENOrdering Facility: [facility] Address: [address] [place] [address] Result Comment: <130 mg/dL, Optimal 130-159 mg/dL, Near optimal/above optimal 160-189 mg/dL, Borderline high 190-219 mg/dL, High >219 mg/dL, Very high Secondary prevention optimal non HDL Cholesterol levels are recommended to be <100 mg/dL Performed By: #### 5 0190-8, LIPNF, 3015-3, 55083-9 ####[facility] LABCLIA [id number] [place] [address] [place] T CHOL/HDL RATIO NF 2.65 mg/dL Normal <5.10 [facility] Comment on above: Order Comment: Walter sexton Type: BLOOD SPECIMENOrdering Facility: [facility] Address: [address] [place] [address] Performed By: #### 5 0190-8, LIPNF, 3015-3, 44919-4 ####[facility] LABCLIA [id number] [place] [id number] [place] TRIGLYCERIDES, NF 73 mg/dL Normal <150 [facility] Comment on above: Order Comment: Speci men Type: BLOOD SPECIMENOrdering Facility: [facility] Address: [address] [place] [address] Result Comment: <150 mg/dL, Normal 150-199 mg/dL, Borderline high 200-499 mg/dL, High >499 mg/dL, Very high Performed By: #### 5 0190-8, LIPNF, 3016-3, 31496-5 ####[facility] LABCLIA [id number] [place] [address] [place] VLDL CHOLESTEROL, NF 15 mg/dL Normal <30 [facility] Comment on above: Order Comment: Speci men Type: BLOOD SPECIMENOrdering Facility: [facility] [facility] Address: [address] [place] [address] Performed By: #### 5 0190-8, LIPNF, 3016-3, 33811-6 ####[facility] LABCLIA [id number] [place] [address] [place] TSH SerPl-aCncon 07-20-2024 TSH Qn 3.090 m[IU]/L Normal 0.270-4.20 0 [facility] Comment on above: Order Comment: Speci men Type: BLOOD SPECIMENOrdering Facility: [facility] Address: [address] [place] [address] Performed By: #### 5 0190-8, LIPNF, 3016-3, 40669-0 ####[facility] LABCLIA [id number] [place] [address] [place] 12 Lead EKG performed by [facility] on 05-28-2024 12 Lead EKG performed by [facility] [address] [facility] [place] [address] 12 Lead EKG performed by [facility] 05/28/24 0859 MR#: [id number] Acct: [id number] Name: MICHAEL BATES Jr. Rep #: [id number] : 1955 69 From: Yolanda Ye Attending Dr: Azul Cornell Status: DEP AMB Ordering Dr: Yolanda Dean Date: 05/03 03/24 Location: [facility] Sex: M C Admitted: [facility]/12 Lead EKG performed by [facility] ECG Report Interpretation ----Sinus Rhythm WITHIN NORMAL LIMITSElectronically signed on 06/08/2024 at 09:49 by Jd Kern Software Version [id number] 06/08/2453 Date Yolanda DENISE CC: Dr. Nadir Grady MD Date Dictated: 05/28/24858 Date Transcribed: 05/28/24858 Letter Sorting Machine Operator: SHAHEEN Signed Normal [facility] Office Visit Reporton 2023 Office Visit Report [facility] [address] [place] [address] OFFICE VISIT Date of Service: 05/28/24 MR#: [id number] Acct: [id number] Patient: MICHAEL BATES Jr. Rep #: [id number] : 1955 Provider: Azul Cornell Age/Sex: 69/M Location: [facility] Status: Signed Intake Vital Signs 04/19/24 08:17 05/28/24 09:00 Height 5 ft 10 in Weight: 177 lb BMI 25.4 BP 144/67 H 139/63 H Blood Pressure Location Lt brachial Lt brachial Position Sitting Sitting Respiration 18 16 Pulse 68 73 Pulse Source Monitor NIBP Pulse Oximetry (%) 97 96 Oxygen Delivery Method room air Intake Visit Reasons: Dizziness (cardiology) Chief Complaint: Dizzy, fatigue Work Order Detailer Required: No Is patient in pain?: Yes (chest pain QOD-not currently) Pain scale (1-10): 7 Allergies fludrocortisone (From Florinef) Allergy (Severe, Verified 05/28/24 09:02) ANGIOEDEMA losartan Adverse Reaction (Severe, Verified 05/28/24 09:02) Angioedema iodine Adverse Reaction (Verified 05/28/24 09:02) unknown perfume Adverse Reaction (Verified 05/28/24 09:02) Other Medications ???Medication ???Instructions ???Recorded ???Confirmed ???Type aspirin 81 mg tablet,delayed 81 mg PO DAILY@0800 heart health 09/13/13 05/28/24 History release omega 2-nfn-ckr-fish oil 1,000 mg 1,000 mg PO QDAY supplement 01/06/18 05/28/24 History (120 mg-180 mg) capsule (Fish Oil) metformin 500 mg tablet,extended 1,000 mg PO BID diabetes 07/25/20 05/28/24 History release 24 hr ferrous sulfate 325 mg (65 mg 325 mg PO BID supplement 06/28/22 05/28/24 History iron) tablet atorvastatin 80 mg tablet 40 mg PO DAILY cholesterol 10/30/23 05/28/24 History ranolazine 1,000 mg 1,000 mg PO BID heart #60 tabs 10/30/23 05/28/24 Rx tablet,extended release,12 hr ticagrelor 90 mg tablet (Brilinta) 90 mg PO BID anti platelet #60 tabs 10/30/23 05/28/24 Rx zinc acetate 50 mg (zinc) capsule 50 mg PO DAILY supplement 10/30/23 05/28/24 History (Galzin) nitroglycerin 0.4 mg sublingual 0.4 mg sublingual Q5M PRN chest 12/04/23 05/28/24 Rx tablet pain #30 tabs amlodipine 10 mg tablet 10 mg PO DAILY #90 tabs 12/18/23 05/28/24 Rx omeprazole 40 mg capsule,delayed 40 mg PO DAILY #90 caps 04/19/24 05/28/24 Rx release Have you fallen in the past year?: No Nursing Note Patient stopped in the lobby with c/o fatigue, dizziness and intermittent CP. States the fatigue and dizziness started a couple weeks ago but the CP is not new. States that he falls asleep 3-4 times per day and actually fell asleep on the phone with his brother. Denies SOB, palpitations or swelling. EKG shows sinus rhythm @ 74 bpm. Discussed with Yolanda Dean. 48 hour holter ordered. Advised patient that the precert team with make sure it is covered by insurance, then scheduling will call to set up a time to have it placed. Assessment and Plan Assessment and Plan (1) Dizziness: Status: Acute Orders: Orders 12 Lead EKG performed by [facility] Today I25.10 - Atherosclerotic heart disease of [place] coronary artery without angina pectoris, I65.23 - Occlusion and stenosis of bilateral carotid arteries, R42 - Dizziness and giddiness, R53.83 - Other fatigue, Z95.5 - Presence of coronary angioplasty implant and graft Cardiac Holter Monitor, 48 Hrs Today I65.23 - Occlusion and stenosis of bilateral carotid arteries, R42 - Dizziness and giddiness, R53.83 - Other fatigue, Z95.5 - Presence of coronary angioplasty implant and graft Clinical Quality Measures Falls Risk Screening/Assistive Devices Have you fallen in the past year?: No 05/29/24 1013 A> Date Yolanda DENISE [facility] Signature: Date (if applicable) CC: CAMELIA Julian Normal [facility] Cardiology Visit Reporton Cardiology Visit Report [facility] [address] [place] [address] OFFICE VISIT Date of Service: 04/19/24 MR#: [id number] Acct: [id number] Name: MICHAEL BATES Rep #: [id number] : 1955 Provider: CAMELIA Hurd Age/Sex: 69/M Location: [facility] Status: Signed HPI HPI History of Present Illness Details: 68-year-old old man with a history of coronary artery disease who presents for a follow-up evaluation. He does have a history of coronary artery disease with stenting to his mid LAD and ramus in 2016, ostial left circumflex in May 2020 and Jul 2021, proximal circumflex in October 2020, and mid RCA in April 2021. He also has a history of hypertension, hyperlipidemia, syncope and carotid artery stenosis. As you remember he had been having a lot of syncopal episodes and was referred to neurology and eventually had a loop recorder placed for syncope evaluation which thus far has not demonstrated any significant abnormalities. Due to his recurrent syncope he had been placed on fludrocortisone but said that he had an allergic reaction to it and so was put on midodrine. He continues to complain of chest discomfort and in December 2021 underwent a stress test which was negative for ischemia and subsequently in January of the same year underwent a cardiac catheterization which demonstrated diffuse coronary disease with previously placed stents noted in the LAD diagonal and ramus, circumflex artery and right coronary artery were all noted to be patent. Diffuse distal disease was noted no high-grade stenosis was present. He had been started on Ranexa which was discontinued due to nausea. He had a stress test in June 2023 that was negative for ischemia. He was admitted to [facility] on October 09, 2023 with chest discomfort. EKG had demonstrated ST depressions in V5 and V6. Troponins were negative. He did have an echocardiogram which demonstrated an ejection fraction of 60%.He did undergo a diagnostic heart catheterization which demonstrated 50% proximal LAD stenosis, 50 to 60% mid LAD stenosis, 70% proximal OM2 stenosis unchanged from previous study, 95% calcified proximal RCA and 90% calcified mid RCA and 70% 6 distal RCA. He underwent successful shockwave lithotripsy and stenting of his distal RCA. Patient was in the emergency room on October 15 for chest discomfort. Workup was negative. He did need to go use NTG for this. It did not work. He was cleaning the house. Rated the pain as a 4/10. It was to the left of his sternum. He was then in the emergency room on the for concerns over swelling in his tongue. He was advised to stop his losartan. We had increased his Ranexa to 1000 mg twice a day. Patient was in the hospital and December 2023 for chest pain. He did undergo a diagnostic stress test. This was negative for ischemia. At that time it was noted that he was on both Brilinta and Plavix. Plavix was discontinued. From a cardiac standpoint, patient is doing well. He does not have any chest discomfort/heaviness/t ightness. His exercise tolerance is stable for his age. He has been remodeling an old truck. He does not have any worsening symptoms of shortness of breath. He denies any PND. He does not have any orthopnea. He does not have any symptoms of congestive heart failure. He does not have any palpitations that he is aware of. He does not have any lightheadedness or dizziness. He does not have any near-syncope or syncope. He does not have any lower extremity edema. He does not have any symptoms of claudication. He tells me that the brilinta give him heartburn, sometimes this is bothersome. Intake Vital Signs 12/30/23 08:37 02/18/24 05:48 04/19/24 08:17 Height 5 ft 10 in 5 ft 10 in 5 ft 10 in Weight: 177 lb BMI 25.4 BP 144/67 H Blood Pressure Location Lt brachial Position Sitting Respiration 18 Pulse 68 Pulse Source Monitor Pulse Oximetry (%) 97 Intake Visit Reasons: 4 M Work Order Detailer Required: No Is patient in pain?: No Allergies fludrocortisone (From Florinef) Allergy (Severe, Verified 04/19/24 08:17) ANGIOEDEMA losartan Adverse Reaction (Severe, Verified 04/19/24 08:17) Angioedema iodine Adverse Reaction (Verified 04/19/24 08:17) unknown perfume Adverse Reaction (Verified 04/19/24 08:17) Other Medications ???Medication ???Instructions ???Recorded ???Confirmed ???Type aspirin 81 mg tablet,delayed 81 mg PO DAILY@0800 heart health 09/13/13 04/19/24 History release omega 7-jjz-pek-fish oil 1,000 mg 1,000 mg PO QDAY supplement 01/06/18 04/19/24 History (120 mg-180 mg) capsule (Fish Oil) metformin 500 mg tablet,extended 1,000 mg PO BID diabetes 07/25/20 04/19/24 History release 24 hr ferrous sulfate 325 mg (65 mg 325 mg PO BID supplement 06/28/22 04/19/24 History iron) tablet (more content not included)... Normal [facility] No Panel Informationon 12-21 IMPRESSION: No acute osseous abnormality Letter Sorting Machine Operator: FAWN Transcribe Date/Time: Dec 22 2023 9:40A Dictated by : LIZA ARDON MD This examination was interpreted and the report reviewed and electronically signed by: LIZA ARDON MD on Dec 22 2023 9:43AM [facility] DIVISION OF RADIOLOGY Radiology Study observation (narrative) [facility] No Panel InformationOrdered By: Ccf Provider on 12-22-2023 [facility] XR Hand - left PA and Latera l and Obliqueon 12-22-2023 * * *Final Report* * * DATE OF EXAM: Dec 22 2023 9:38AM WOX 5345 - XR HAND 3V PA/LAT/OBL LT / PROCEDURE REASON: Hand pain, left * * * * Physician Interpretation * * * * EXAMINATION: XR HAND 3V PA/LAT/OBL LT, XR FOREARM 2V AP/LAT LT CLINICAL HISTORY: Left hand and left forearm pain Technique: XR HAND 3V PA/LAT/OBL LT, XR FOREARM 2V AP/LAT LT -- LEFT with 3 (accession [id number]), 2 (accession [id number]) views on 3 (accession [id number]), 2 (accession [id number]) images Comparison: None RESULT: Left forearm: No acute fracture or dislocation. Joint spaces are maintained. Left hand: No acute fracture or dislocation. Joint spaces are maintained. DIVISION OF RADIOLOGY Provider, [facility] - 12/22/2023 * * *Final Report* * * DATE OF EXAM: Dec 22 2023 9:38AM WOX 5345 - XR HAND 3V PA/LAT/OBL LT / PROCEDURE REASON: Hand pain, left * * * * Physician Interpretation * * * * EXAMINATION: XR HAND 3V PA/LAT/OBL LT, XR FOREARM 2V AP/LAT LT CLINICAL HISTORY: Left hand and left forearm pain Technique: XR HAND 3V PA/LAT/OBL LT, XR FOREARM 2V AP/LAT LT -- LEFT with 3 (accession [id number]), 2 (accession [id number]) views on 3 (accession [id number]), 2 (accession [id number]) images Comparison: None RESULT: Left forearm: No acute fracture or dislocation. Joint spaces are maintained. Left hand: No acute fracture or dislocation. Joint spaces are maintained. IMPRESSION IMPRESSION: No acute osseous abnormality Letter Sorting Machine Operator: FAWN Transcribe Date/Time: Dec 22 2023 9:40A Dictated by : LIZA ARDON MD This examination was interpreted and the report reviewed and electronically signed by: LIZA ARDON MD on Dec 22 2023 9:43AM [facility] XR Radius and Ulna - left AP and Lateralon 12-22-2023 * * *Final Report* * * DATE OF EXAM: Dec 22 2023 9:38AM WOX 5341 - XR FOREARM 2V AP/LAT LT / PROCEDURE REASON: Left forearm pain * * * * Physician Interpretation * * * * EXAMINATION: XR HAND 3V PA/LAT/OBL LT, XR FOREARM 2V AP/LAT LT CLINICAL HISTORY: Left hand and left forearm pain Technique: XR HAND 3V PA/LAT/OBL LT, XR FOREARM 2V AP/LAT LT -- LEFT with 3 (accession [id number]), 2 (accession [id number]) views on 3 (accession [id number]), 2 (accession [id number]) images Comparison: None RESULT: Left forearm: No acute fracture or dislocation. Joint spaces are maintained. Left hand: No acute fracture or dislocation. Joint spaces are maintained. DIVISION OF RADIOLOGY Provider, [facility] - 12/22/2023 * * *Final Report* * * DATE OF EXAM: Dec 22 2023 9:38AM WOX 5341 - XR FOREARM 2V AP/LAT LT / PROCEDURE REASON: Left forearm pain * * * * Physician Interpretation * * * * EXAMINATION: XR HAND 3V PA/LAT/OBL LT, XR FOREARM 2V AP/LAT LT CLINICAL HISTORY: Left hand and left forearm pain Technique: XR HAND 3V PA/LAT/OBL LT, XR FOREARM 2V AP/LAT LT -- LEFT with 3 (accession [id number]), 2 (accession [id number]) views on 3 (accession [id number]), 2 (accession [id number]) images Comparison: None RESULT: Left forearm: No acute fracture or dislocation. Joint spaces are maintained. Left hand: No acute fracture or dislocation. Joint spaces are maintained. IMPRESSION IMPRESSION: No acute osseous abnormality Letter Sorting Machine Operator: FAWN Transcribe Date/Time: Dec 22 2023 9:40A Dictated by : LIZA ARDON MD This examination was interpreted and the report reviewed and electronically signed by: LIZA ARDON MD on Dec 22 2023 9:43AM EST [facility] Absolute lymphocyte countOrd ered By: Gildardo Walton on 12-04-2023 Lymphocytes Auto (Unsp spec) [#/Vol] 1.03 10*3/uL 0.83-4.51 [facility] Automated lymphocyte count a s percentage of total leukocytesOrdered By: Gildardo Walton on 12-04-2023 Lymphocytes/100 WBC Auto (Unsp spec) 20.3 % 19-41 [facility] Basophil percentageOrdered B y: Gildardo Walton on 12-04-2023 Basophils/100 WBC (Bld) 0.8 % 0-1 [facility] Chloride [Moles/Vol] 106 mmol/L 98-107 [facility] Cholesterol [Mass/Vol] 133 mg/dL <200 [facility] Comment on above: <200 mg/dL Desirable 200-240 mg/dL Borderline >240 mg/dL High Risk Eosinophils/100 WBC (Bld) 4.3 % 0-5 [facility] Glucose [Mass/Vol] 167 mg/dL 74-106 [facility] Comment on above: Fasting Glucose resu lt greater than or equal to 126 mg/dL suggests DIABETES MELLITUS per A.D.A. criteria. Hemoglobin (Bld) [Mass/Vol] 11.7 g/dL 13.0-16. 5 [facility] Monocytes/100 WBC (Bld) 10.3 % 0-10 [facility] Neutrophils (Bld) [#/Vol] 3.2 10*3/uL 2.0-7.7 [facility] Neutrophils/100 WBC (Bld) 63.9 % 47-70 [facility] Potassium [Moles/Vol] 3.9 mmol/L 3.5-5.1 [facility] Sodium [Moles/Vol] 137 mmol/L 136-145 [facility] Triglyceride [Mass/Vol] 168 mg/dL <199 [facility] Comment on above: The drugs N-Acetylcy steine and Metamizole may falsely depress this assay.Serum Triglycerides Reference Interval Normal <150 mg/dL Borderline high 150 - 199 mg/dL High 200 - 499 mg/dL Very High > or = 500 mg/dL WBC (Bld) [#/Vol] 5.1 10*3/uL 4.4-11.0 [facility] Determination of erythrocyte mean corpuscular volume (MCV)Ordered By: Gildardo Walton on 12-04-2023 MCV (RBC) [Entitic vol] 87.7 fL 80-94 [facility] Erythrocyte distribution wid th ratioOrdered By: Gildardo Walton on 12-04-2023 Erythrocyte distribution width (RBC) [Ratio] 12.5 % 11.6-14.6 [facility] Erythrocyte distribution wid th standard deviationOrdered By: Gildardo Walton on 12-04-2023 Erythrocyte distribution width (RBC) [Entitic vol] 40.1 fL 35.1-43.9 [facility] Hematocrit Auto (Bld) [Volum e fraction]Ordered By: Gildardo Walton on 12-04-2023 Hematocrit (Bld) [Volume fraction] 34.9 % 40-54 [facility] Immature granulocytes/100 WB C Auto (Bld)Ordered By: Gildardo Walton on 12-04-2023 Immature granulocytes/100 WBC (Bld) 0.400 % 0.0-0.9 [facility] Comment on above: IG% - Immature Granu locytes (promyelocytes, myelocytes and metamyelocytes) > 1% indicates that a LEFT SHIFT is Present. Laboratory - Chemistry and C hemistry - challengeOrdered By: Gildardo Walton on 12-04-2023 Cholesterol in HDL [Mass/Vol] 50 mg/dL >40 [facility] Comment on above: The drugs N-Acetylcy steine and Metamizole may falsely depress this assay. Reference Range HDL <40 mg/dL Low HDL Cholesterol HDL >or= 60 mg/dL High HDL Cholesterol Cholesterol in LDL [Mass/Vol] 49 mg/dL 0-130 [facility] CO2 [Moles/Vol] 25.0 mmol/L 21.0-32.0 [facility] Urea nitrogen/Creatinine [Mass ratio] 15.7 mg/mg 10-20 [facility] Laboratory - Hematology and Cell countsOrdered By: Gildardo Walton on 12-04-2023 MCH (RBC) [Entitic mass] 29.4 pg 27.0-32.0 [facility] MCHC (RBC) [Mass/Vol] 33.5 g/dL 32-36 [facility] Nucleated RBC/100 WBC (Bld) [Ratio] 0 % 0-5 [facility] Platelet mean volume (Bld) [Entitic vol] 9.1 fL 6.2-12.0 [facility] Platelets (Bld) [#/Vol] 187 10*3/uL 150-450 [facility] No Panel InformationOrdered By: Gildardo Walton on 12-04-2023 Estimated Creatinine Clearance Calc 73.93 ml/min [facility] Estimated GFR (MDRD) Amer 100 mL/min >60 [facility] Comment on above: GFR Calc Estimated GFR (MDRD) Non-Af Amer 83 mL/min >60 [facility] Comment on above: Non- GFR Calc VLDL Cholesterol 34 mg/dL 5-40 [facility] RBC Auto (Bld) [#/Vol]Ordere d By: Gildardo Walton on 12-04-2023 RBC (Bld) [#/Vol] 3.98 10*6/uL 4.6-6.2 [facility] Serum or plasma calcium jaziel urement (mass/volume)Ordered By: Gildardo Walton on 12-04-2023 Calcium [Mass/Vol] 9.0 mg/dL 8.5-10.1 [facility] Serum or plasma creatinine m easurement (mass/volume)Ordered By: Gildardo Walton on 12-04-2023 Creatinine [Mass/Vol] 0.96 mg/dL 0.70-1.30 [facility] Comment on above: The validity of the calculated GFR & GFRAA in patients over 70 years has not been determined. Clinical correlation is essential. Serum or plasma thyroid stim ulating hormone (TSH) measurement (units/volume)Ordered By: Gildardo Walton on 12-04-2023 TSH Qn 3.38 uIU/mL 0.358-3.74 [facility] Serum or plasma urea nitroge n measurement (mass/volume)Ordered By: Gildardo Walton on 12-04-2023 Urea nitrogen [Mass/Vol] 15 mg/dL 7-18 [facility] Thin prep Papanicolaou smear with manual screeningOrdered By: Martina Cr on 12-04-2023 Thin prep Papanicolaou smear with manual screening 195 mg/dL 74-106 [facility] Comment on above: MANAGEMENT OF PATIEN T CARE PER NURSING PROTOCOL Thin prep Papanicolaou smear with manual screeningOrdered By: Gildardo Walton on 12-04-2023 Thin prep Papanicolaou smear with manual screening 6 5-15 [facility] Absolute lymphocyte countOrd ered By: Jered Huff on 12-03-2023 Lymphocytes Auto (Unsp spec) [#/Vol] 0.90 10*3/uL 0.83-4.51 [facility] Activated partial thrombopla stin time (aPTT) in platelet poor plasma by coagulation aOrdered By: Jered Huff on 12-03-2023 aPTT Coag (PPP) [Time] 27.7 s 24.1-36.2 [facility] Automated lymphocyte count a s percentage of total leukocytesOrdered By: Jered Huff on 12-03-2023 Lymphocytes/100 WBC Auto (Unsp spec) 19.4 % 19-41 [facility] Basophil percentageOrdered B y: Gildardo Walton on 12-03-2023 Basophil percentage 0 SEEN /hpf 0-5 [facility] Basophil percentageOrdered B y: Jered Huff on 12-03-2023 Basophils/100 WBC (Bld) 0.9 % 0-1 [facility] Chloride [Moles/Vol] 101 mmol/L 98-107 [facility] Eosinophils/100 WBC (Bld) 1.9 % 0-5 [facility] Glucose [Mass/Vol] 264 mg/dL 74-106 [facility] Comment on above: Glucose result great er than or equal to 200 mg/dLsuggests DIABETES MELLITUS per A.D.A. criteria. Hemoglobin (Bld) [Mass/Vol] 11.4 g/dL 13.0-16. 5 [facility] Monocytes/100 WBC (Bld) 11.2 % 0-10 [facility] Neutrophils (Bld) [#/Vol] 3.0 10*3/uL 2.0-7.7 [facility] Neutrophils/100 WBC (Bld) 65.7 % 47-70 [facility] Potassium [Moles/Vol] 3.9 mmol/L 3.5-5.1 [facility] Sodium [Moles/Vol] 134 mmol/L 136-145 [facility] WBC (Bld) [#/Vol] 4.6 10*3/uL 4.4-11.0 [facility] Bilirubin Test strip Ql (U)O rdered By: Gildardo Walton on 12-03-2023 Bilirubin Ql (U) Negative Negative [facility] Determination of erythrocyte mean corpuscular volume (MCV)Ordered By: Jered Huff on 12-03-2023 MCV (RBC) [Entitic vol] 86.9 fL 80-94 [facility] Erythrocyte distribution wid th ratioOrdered By: Jered Huff on 12-03-2023 Erythrocyte distribution width (RBC) [Ratio] 12.3 % 11.6-14.6 [facility] Erythrocyte distribution wid th standard deviationOrdered By: Jered Huff on 12-03-2023 Erythrocyte distribution width (RBC) [Entitic vol] 39.1 fL 35.1-43.9 [facility] Hematocrit Auto (Bld) [Volum e fraction]Ordered By: Jered Huff on 12-03-2023 Hematocrit (Bld) [Volume fraction] 33.3 % 40-54 [facility] Immature granulocytes/100 WB C Auto (Bld)Ordered By: Jered Huff on 12-03-2023 Immature granulocytes/100 WBC (Bld) 0.900 % 0.0-0.9 [facility] Comment on above: IG% - Immature Granu locytes (promyelocytes, myelocytes and metamyelocytes) > 1% indicates that a LEFT SHIFT is Present. Ketones Test strip Ql (U)Ord ered By: Gildardo Walton on 12-03-2023 Ketones Ql (U) Negative Negative [facility] Laboratory - Chemistry and C hemistry - challengeOrdered By: Jered Huff on 12-03-2023 CO2 [Moles/Vol] 28.0 mmol/L 21.0-32.0 [facility] Urea nitrogen/Creatinine [Mass ratio] 22.5 mg/mg 10-20 [facility] Laboratory - CoagulationOrde red By: Jered Huff on 12-03-2023 INR Coag (Bld) [Relative time] 1.0 {INR} [facility] PT Coag (PPP) [Time] 13.0 s 11.7-14.9 [facility] Laboratory - Hematology and Cell countsOrdered By: Jered Huff on 12-03-2023 MCH (RBC) [Entitic mass] 29.8 pg 27.0-32.0 [facility] MCHC (RBC) [Mass/Vol] 34.2 g/dL 32-36 [facility] Nucleated RBC/100 WBC (Bld) [Ratio] 0 % 0-5 [facility] Platelet mean volume (Bld) [Entitic vol] 9.2 fL 6.2-12.0 [facility] Platelets (Bld) [#/Vol] 189 10*3/uL 150-450 [facility] Mucus LM Ql (Urine sed)Order ed By: Gildardo Walton on 12-03-2023 Mucus Ql (Urine sed) 0 SEEN /hpf [facility] Nitrite Test strip Ql (U)Ord ered By: Gildardo Walton on 12-03-2023 Nitrite Ql (U) Negative Negative [facility] No Panel InformationOrdered By: Gildardo Walton on 12-03-2023 Troponin I High Sensitivity 7 pg/mL 3.0-78.0 [facility] Comment on above: Please Note: New [place] t Units and Gender Specific Reference Ranges. For more information see Policy Stat Procedure [place] High Sensitivity Troponin (TNIH) and attachments. Urine RBC 0 SEEN /hpf 0-5 [facility] No Panel InformationOrdered By: Jered Huff on 12-03-2023 Troponin I High Sensitivity 6 pg/mL 3.0-78.0 [facility] Comment on above: Please Note: [place] t Units and Gender Specific Reference Ranges. For more information see Policy Stat Procedure [place] High Sensitivity Troponin (TNIH) and attachments. Estimated GFR (MDRD) Amer 93 mL/min >60 [facility] Comment on above: GFR Calc Estimated GFR (MDRD) Non-Af Amer 77 mL/min >60 [facility] Comment on above: Non- GFR Calc Protein Test strip Ql (U)Ord ered By: Gildardo Walton on 12-03-2023 Protein Ql (U) Negative Negative [facility] RBC Auto (Bld) [#/Vol]Ordere d By: Jered Huff on 12-03-2023 RBC (Bld) [#/Vol] 3.83 10*6/uL 4.6-6.2 [facility] Serum or plasma calcium jaziel urement (mass/volume)Ordered By: Jered Huff on 12-03-2023 Calcium [Mass/Vol] 9.0 mg/dL 8.5-10.1 [facility] Serum or plasma creatinine m easurement (mass/volume)Ordered By: Jered Huff on 12-03-2023 Creatinine [Mass/Vol] 1.02 mg/dL 0.70-1.30 [facility] Comment on above: The validity of the calculated GFR & GFRAA in patients over 70 years has not been determined. Clinical correlation is essential. Serum or plasma urea nitroge n measurement (mass/volume)Ordered By: Jered Huff on 12-03-2023 Urea nitrogen [Mass/Vol] 23 mg/dL 7-18 [facility] Squamous epithelial cells de tection in urine sediment by light microscopyOrdered By: Gildardo Walton on 12-03-2023 Epithelial cells.squamous LM Ql (Urine sed) 0 SEEN /hpf 0-5 [facility] Thin prep Papanicolaou smear with manual screeningOrdered By: Jered Huff on 12-03-2023 Thin prep Papanicolaou smear with manual screening 5 5-15 [facility] Urine blood detectionOrdered By: Gildardo Walton on 12-03-2023 RBC Ql (U) Negative Negative [facility] Urine clarityOrdered By: Carley Walton on 12-03-2023 Clarity (U) Clear Clear [facility] Urine color determinationOrd ered By: Gildardo Walton on 12-03-2023 Color (U) Yellow Yellow [facility] Urine glucose detectionOrder ed By: Gildardo Walton on 12-03-2023 Glucose Ql (U) 50 mg/dl Normal [facility] Urine leukocyte esterase det ection by dipstickOrdered By: Gildardo Walton on 12-03-2023 Leukocyte esterase Test strip Ql (U) Negative Negative [facility] Urine pHOrdered By: Gildardo Walton on 12-03-2023 pH (U) 8.0 [pH] 5.0 - 8.0 [facility] Urine sediment bacteria coun t by microscopy (number/high power field)Ordered By: Gildardo Walton on 12-03-2023 Bacteria LM.HPF (Urine sed) [#/Area] 0 /[HPF] None Seen [facility] Urine specific gravity measu rementOrdered By: Gildardo Walton on 12-03-2023 Specific gravity (U) [Rel density] 1.015 1.002-1.03 0 [facility] Urine urobilinogen measureme ntOrdered By: Gildardo Walton on 12-03-2023 Urobilinogen Ql (U) Normal mg/dl Normal [facility] Absolute lymphocyte countOrd ered By: Jered Huff on 10-23-2023 Lymphocytes Auto (Unsp spec) [#/Vol] 1.04 10*3/uL 0.83-4.51 [facility] Automated lymphocyte count a s percentage of total leukocytesOrdered By: Jered Huff on 10-23-2023 Lymphocytes/100 WBC Auto (Unsp spec) 10.2 % 19-41 [facility] Basophil percentageOrdered B y: Jered Huff on 10-23-2023 Basophils/100 WBC (Bld) 0.7 % 0-1 [facility] Chloride [Moles/Vol] 107 mmol/L 98-107 [facility] Eosinophils/100 WBC (Bld) 3.4 % 0-5 [facility] Glucose [Mass/Vol] 136 mg/dL 74-106 [facility] Comment on above: Fasting Glucose resu lt greater than or equal to 126 mg/dL suggests DIABETES MELLITUS per A.D.A. criteria. Hemoglobin (Bld) [Mass/Vol] 11.9 g/dL 13.0-16. 5 [facility] Monocytes/100 WBC (Bld) 10.0 % 0-10 [facility] Neutrophils (Bld) [#/Vol] 7.7 10*3/uL 2.0-7.7 [facility] Neutrophils/100 WBC (Bld) 75.3 % 47-70 [facility] Potassium [Moles/Vol] 4.8 mmol/L 3.5-5.1 [facility] Sodium [Moles/Vol] 136 mmol/L 136-145 [facility] WBC (Bld) [#/Vol] 10.2 10*3/uL 4.4-11.0 [facility] Determination of erythrocyte mean corpuscular volume (MCV)Ordered By: Jered Huff on 10-23-2023 MCV (RBC) [Entitic vol] 91.7 fL 80-94 [facility] Erythrocyte distribution wid th ratioOrdered By: Jered Huff on 10-23-2023 Erythrocyte distribution width (RBC) [Ratio] 12.8 % 11.6-14.6 [facility] Erythrocyte distribution wid th standard deviationOrdered By: Jered Huff on 10-23-2023 Erythrocyte distribution width (RBC) [Entitic vol] 42.7 fL 35.1-43.9 [facility] Hematocrit Auto (Bld) [Volum e fraction]Ordered By: Jered Huff on 10-23-2023 Hematocrit (Bld) [Volume fraction] 36.6 % 40-54 [facility] Immature granulocytes/100 WB C Auto (Bld)Ordered By: Jered Huff on 10-23-2023 Immature granulocytes/100 WBC (Bld) 0.400 % 0.0-0.9 [facility] Comment on above: IG% - Immature Granu locytes (promyelocytes, myelocytes and metamyelocytes) > 1% indicates that a LEFT SHIFT is Present. Laboratory - Chemistry and C hemistry - challengeOrdered By: Jered Huff on 10-23-2023 CO2 [Moles/Vol] 26.0 mmol/L 21.0-32.0 [facility] Urea nitrogen/Creatinine [Mass ratio] 27.4 mg/mg 10-20 [facility] Laboratory - Hematology and Cell countsOrdered By: Jered Huff on 10-23-2023 MCH (RBC) [Entitic mass] 29.8 pg 27.0-32.0 [facility] MCHC (RBC) [Mass/Vol] 32.5 g/dL 32-36 [facility] Nucleated RBC/100 WBC (Bld) [Ratio] 0 % 0-5 [facility] Platelet mean volume (Bld) [Entitic vol] 9.0 fL 6.2-12.0 [facility] Platelets (Bld) [#/Vol] 229 10*3/uL 150-450 [facility] No Panel InformationOrdered By: Jered Huff on 10-23-2023 Troponin I High Sensitivity 6 pg/mL 3.0-78.0 [facility] Comment on above: Please Note: [place] Units and Gender Specific Reference Ranges. For more information see Policy Stat Procedure [place] High Sensitivity Troponin (TNIH) and attachments. Estimated Creatinine Clearance Calc 73.16 ml/min [facility] Estimated GFR (MDRD) Amer 89 mL/min >60 [facility] Comment on above: GFR Calc Estimated GFR (MDRD) Non-Af Amer 73 mL/min >60 [facility] Comment on above: Non- GFR Calc RBC Auto (Bld) [#/Vol]Ordere d By: Jered Huff on 10-23-2023 RBC (Bld) [#/Vol] 3.99 10*6/uL 4.6-6.2 [facility] Serum or plasma calcium jaziel urement (mass/volume)Ordered By: Jered Huff on 10-23-2023 Calcium [Mass/Vol] 9.9 mg/dL 8.5-10.1 [facility] Serum or plasma creatinine m easurement (mass/volume)Ordered By: Jered Huff on 10-23-2023 Creatinine [Mass/Vol] 1.06 mg/dL 0.70-1.30 [facility] Comment on above: The validity of the calculated GFR & GFRAA in patients over 70 years has not been determined. Clinical correlation is essential. Serum or plasma urea nitroge n measurement (mass/volume)Ordered By: Jered Huff on 10-23-2023 Urea nitrogen [Mass/Vol] 29 mg/dL 7-18 [facility] Thin prep Papanicolaou smear with manual screeningOrdered By: Jered Huff on 10-23-2023 Thin prep Papanicolaou smear with manual screening 3 5-15 [facility] Absolute lymphocyte countOrd ered By: Ivy Toribio on 10-15-2023 Lymphocytes Auto (Unsp spec) [#/Vol] 0.91 10*3/uL 0.83-4.51 [facility] Automated lymphocyte count a s percentage of total leukocytesOrdered By: Ivy Toribio on 10-15-2023 Lymphocytes/100 WBC Auto (Unsp spec) 18.5 % 19-41 [facility] Basophil percentageOrdered B y: Ivy Toribio on 10-15-2023 Basophils/100 WBC (Bld) 0.6 % 0-1 [facility] Chloride [Moles/Vol] 103 mmol/L 98-107 [facility] Eosinophils/100 WBC (Bld) 5.1 % 0-5 [facility] Glucose [Mass/Vol] 265 mg/dL 74-106 [facility] Comment on above: Glucose result great er than or equal to 200 mg/dLsuggests DIABETES MELLITUS per A.D.A. criteria. Hemoglobin (Bld) [Mass/Vol] 11.7 g/dL 13.0-16. 5 [facility] Monocytes/100 WBC (Bld) 10.1 % 0-10 [facility] Neutrophils (Bld) [#/Vol] 3.2 10*3/uL 2.0-7.7 [facility] Neutrophils/100 WBC (Bld) 65.3 % 47-70 [facility] Potassium [Moles/Vol] 4.6 mmol/L 3.5-5.1 [facility] Sodium [Moles/Vol] 137 mmol/L 136-145 [facility] WBC (Bld) [#/Vol] 4.9 10*3/uL 4.4-11.0 [facility] Determination of erythrocyte mean corpuscular volume (MCV)Ordered By: Ivy Toribio on 10-15-2023 MCV (RBC) [Entitic vol] 90.9 fL 80-94 [facility] Erythrocyte distribution wid th ratioOrdered By: Ivy Toribio on 10-15-2023 Erythrocyte distribution width (RBC) [Ratio] 13.1 % 11.6-14.6 [facility] Erythrocyte distribution wid th standard deviationOrdered By: Ivy Toribio on 10-15-2023 Erythrocyte distribution width (RBC) [Entitic vol] 43.1 fL 35.1-43.9 [facility] Hematocrit Auto (Bld) [Volum e fraction]Ordered By: Ivy Toribio on 10-15-2023 Hematocrit (Bld) [Volume fraction] 35.9 % 40-54 [facility] Immature granulocytes/100 WB C Auto (Bld)Ordered By: Ivy Toribio on 10-15-2023 Immature granulocytes/100 WBC (Bld) 0.400 % 0.0-0.9 [facility] Comment on above: IG% - Immature Granu locytes (promyelocytes, myelocytes and metamyelocytes) > 1% indicates that a LEFT SHIFT is Present. Laboratory - Chemistry and C hemistry - challengeOrdered By: Ivy Toribio on 10-15-2023 CO2 [Moles/Vol] 24.0 mmol/L 21.0-32.0 [facility] Urea nitrogen/Creatinine [Mass ratio] 17.8 mg/mg 10-20 [facility] Laboratory - Hematology and Cell countsOrdered By: Ivy Toribio on 10-15-2023 MCH (RBC) [Entitic mass] 29.6 pg 27.0-32.0 [facility] MCHC (RBC) [Mass/Vol] 32.6 g/dL 32-36 [facility] Nucleated RBC/100 WBC (Bld) [Ratio] 0 % 0-5 [facility] Platelet mean volume (Bld) [Entitic vol] 9.5 fL 6.2-12.0 [facility] Platelets (Bld) [#/Vol] 197 10*3/uL 150-450 [facility] No Panel InformationOrdered By: Ivy Toribio on 10-15-2023 Troponin I High Sensitivity 101 pg/mL 3.0-78.0 [facility] Comment on above: Please Note: [place] t Units and Gender Specific Reference Ranges. For more information see Policy Stat Procedure [place] High Sensitivity Troponin (TNIH) and attachments. D-Dimer Quantitative (PE/DVT) 0.56 FEU/ug/m 0.27-0.49 [facility] Comment on above: D-Dimer ELEVATED (>0 .49): Additional studies and clinicalassessments are indicated to conclude diagnosis of:Deep Vein Thrombosis (DVT) or Pulmonary Embolism (PE) Estimated Creatinine Clearance Calc 71.85 ml/min [facility] Estimated GFR (MDRD) Amer 88 mL/min >60 [facility] Comment on above: GFR Calc Estimated GFR (MDRD) Non-Af Amer 73 mL/min >60 [facility] Comment on above: Non- GFR Calc RBC Auto (Bld) [#/Vol]Ordere d By: Ivy Toribio on 10-15-2023 RBC (Bld) [#/Vol] 3.95 10*6/uL 4.6-6.2 [facility] Serum or plasma calcium jaziel urement (mass/volume)Ordered By: Ivy Toribio on 10-15-2023 Calcium [Mass/Vol] 9.3 mg/dL 8.5-10.1 [facility] Serum or plasma creatinine m easurement (mass/volume)Ordered By: Ivy Toribio on 10-15-2023 Creatinine [Mass/Vol] 1.07 mg/dL 0.70-1.30 [facility] Comment on above: The validity of the calculated GFR & GFRAA in patients over 70 years has not been determined. Clinical correlation is essential. Serum or plasma urea nitroge n measurement (mass/volume)Ordered By: Ivy Toribio on 10-15-2023 Urea nitrogen [Mass/Vol] 19 mg/dL 7-18 [facility] Thin prep Papanicolaou smear with manual screeningOrdered By: Ivy Toribio on 10-15-2023 Thin prep Papanicolaou smear with manual screening 10 5-15 [facility] Basophil percentageOrdered B y: Ez Hurst on 10-11-2023 Bilirubin [Mass/Vol] 0.50 mg/dL 0.20-1.00 [facility] Comment on above: For patients on eltr ombopag therapy, use of Dimension [place] TBIL is not recommended. Chloride [Moles/Vol] 108 mmol/L 98-107 [facility] Glucose [Mass/Vol] 144 mg/dL 74-106 [facility] Comment on above: Fasting Glucose resu lt greater than or equal to 126 mg/dL suggests DIABETES MELLITUS per A.D.A. criteria. Hemoglobin (Bld) [Mass/Vol] 10.7 g/dL 13.0-16. 5 [facility] Potassium [Moles/Vol] 3.7 mmol/L 3.5-5.1 [facility] Protein [Mass/Vol] 6.8 g/dL 6.4-8.2 [facility] Sodium [Moles/Vol] 139 mmol/L 136-145 [facility] WBC (Bld) [#/Vol] 7.8 10*3/uL 4.4-11.0 [facility] Determination of erythrocyte mean corpuscular volume (MCV)Ordered By: Ez Hurst on 10-11-2023 MCV (RBC) [Entitic vol] 91.1 fL 80-94 [facility] Erythrocyte distribution wid th ratioOrdered By: [facility] Erythrocyte distribution width (RBC) [Ratio] 13.3 % 11.6-14.6 [facility] Erythrocyte distribution wid th standard deviationOrdered By: [facility] Erythrocyte distribution width (RBC) [Entitic vol] 45.1 fL 35.1-43.9 [facility] Hematocrit Auto (Bld) [Volum e fraction]Ordered By: Ezaristeo Hurst on 10-11-2023 Hematocrit (Bld) [Volume fraction] 32.6 % 40-54 [facility] Laboratory - Chemistry and C hemistry - challengeOrdered By: Ez Aris on 10-11-2023 Albumin/Globulin [Mass ratio] 1.3 {ratio} 0.9-2.4 [facility] ALP [Catalytic activity/Vol] 79 U/L 45-117 [facility] ALT [Catalytic activity/Vol] 25 U/L 16-61 [facility] CO2 [Moles/Vol] 23.0 mmol/L 21.0-32.0 [facility] Globulin (S) [Mass/Vol] 2.9 g/dL 2.2-4.2 [facility] Urea nitrogen/Creatinine [Mass ratio] 20.1 mg/mg 10-20 [facility] Laboratory - Hematology and Cell countsOrdered By: Ez Hurst on 10-11-2023 MCH (RBC) [Entitic mass] 29.9 pg 27.0-32.0 [facility] MCHC (RBC) [Mass/Vol] 32.8 g/dL 32-36 [facility] Platelet mean volume (Bld) [Entitic vol] 9.4 fL 6.2-12.0 [facility] Platelets (Bld) [#/Vol] 195 10*3/uL 150-450 [facility] No Panel InformationOrdered By: Ez Hurst on 10-11-2023 Estimated Creatinine Clearance Calc 96.49 ml/min [facility] Estimated GFR (MDRD) Amer 123 mL/min >60 [facility] Comment on above: GFR Calc Estimated GFR (MDRD) Non-Af Amer 102 mL/min >60 [facility] Comment on above: Non- GFR Calc RBC Auto (Bld) [#/Vol]Ordere d By: Ez Hurst on 10-11-2023 RBC (Bld) [#/Vol] 3.58 10*6/uL 4.6-6.2 [facility] Serum or plasma calcium jaziel urement (mass/volume)Ordered By: Ez Hurst on 10-11-2023 Calcium [Mass/Vol] 8.7 mg/dL 8.5-10.1 [facility] Serum or plasma creatinine m easurement (mass/volume)Ordered By: Ez Hurst on 10-11-2023 Creatinine [Mass/Vol] 0.80 mg/dL 0.70-1.30 [facility] Comment on above: The validity of the calculated GFR & GFRAA in patients over 70 years has not been determined. Clinical correlation is essential. Serum or plasma urea nitroge n measurement (mass/volume)Ordered By: Ez Hurst on 10-11-2023 Urea nitrogen [Mass/Vol] 16 mg/dL 7-18 [facility] Thin prep Papanicolaou smear with manual screeningOrdered By: Foster Mayberry on 10-11-2023 Thin prep Papanicolaou smear with manual screening 172 mg/dL 74-106 [facility] Comment on above: MANAGEMENT OF PATIEN T CARE PER NURSING PROTOCOL Thin prep Papanicolaou smear with manual screeningOrdered By: Ez Hurst on 10-11-2023 Thin prep Papanicolaou smear with manual screening 3.9 g/dL 3.2-5.0 [facility] Thin prep Papanicolaou smear with manual screening 15 U/L 15-37 [facility] Thin prep Papanicolaou smear with manual screening 8 5-15 [facility] Absolute lymphocyte countOrd ered By: Gildardo Walton on 10-10-2023 Lymphocytes Auto (Unsp spec) [#/Vol] 1.27 10*3/uL 0.83-4.51 [facility] Activated partial thrombopla stin time (aPTT) in platelet poor plasma by coagulation aOrdered By: Gildardo Walton on 10-10-2023 aPTT Coag (PPP) [Time] 53.1 s 24.1-36.2 [facility] Automated lymphocyte count a s percentage of total leukocytesOrdered By: Gildardo Walton on 10-10-2023 Lymphocytes/100 WBC Auto (Unsp spec) 24.7 % 19-41 [facility] Basophil percentageOrdered B y: Gildardo Walton on 10-10-2023 Basophils/100 WBC (Bld) 0.8 % 0-1 [facility] Cholesterol [Mass/Vol] 129 mg/dL <200 [facility] Comment on above: <200 mg/dL Desirable 200-240 mg/dL Borderline >240 mg/dL High Risk Eosinophils/100 WBC (Bld) 3.9 % 0-5 [facility] Monocytes/100 WBC (Bld) 8.2 % 0-10 [facility] Neutrophils (Bld) [#/Vol] 3.2 10*3/uL 2.0-7.7 [facility] Neutrophils/100 WBC (Bld) 61.8 % 47-70 [facility] Triglyceride [Mass/Vol] 86 mg/dL <199 [facility] Comment on above: The drugs N-Acetylcy steine and Metamizole may falsely depress this assay.Serum Triglycerides Reference Interval Normal <150 mg/dL Borderline high 150 - 199 mg/dL High 200 - 499 mg/dL Very High > or = 500 mg/dL Immature granulocytes/100 WB C Auto (Bld)Ordered By: Gildardo Walton on 10-10-2023 Immature granulocytes/100 WBC (Bld) 0.600 % 0.0-0.9 [facility] Comment on above: IG% - Immature Granu locytes (promyelocytes, myelocytes and metamyelocytes) > 1% indicates that a LEFT SHIFT is Present. Laboratory - Chemistry and C hemistry - challengeOrdered By: Gildardo Walton on 10-10-2023 Cholesterol in HDL [Mass/Vol] 60 mg/dL >40 [facility] Comment on above: The drugs N-Acetylcy steine and Metamizole may falsely depress this assay. Reference Range HDL <40 mg/dL Low HDL Cholesterol HDL >or= 60 mg/dL High HDL Cholesterol Cholesterol in LDL [Mass/Vol] 52 mg/dL 0-130 [facility] Natriuretic peptide B (Bld) [Mass/Vol] 41.9 pg/mL 0-100 [facility] Laboratory - Hematology and Cell countsOrdered By: Gildardo Walton on 10-10-2023 Nucleated RBC/100 WBC (Bld) [Ratio] 0 % 0-5 [facility] No Panel InformationOrdered By: Foster Mayberry on 10-10-2023 Activated Clotting Time 266 sec 74-137 [facility] No Panel InformationOrdered By: Gildardo Walton on 10-10-2023 VLDL Cholesterol 17 mg/dL 5-40 [facility] Troponin I High Sensitivity 21 pg/mL 3.0-78.0 [facility] Comment on above: Please Note: [place] t Units and Gender Specific Reference Ranges. For more information see Policy Stat Procedure [place] High Sensitivity Troponin (TNIH) and attachments. Serum or plasma thyroid stim ulating hormone (TSH) measurement (units/volume)Ordered By: Gildardo Walton on 10-10-2023 TSH Qn 3.00 uIU/mL 0.358-3.74 [facility] Whole blood hemoglobin A1c/t otal hemoglobin ratio (mass fraction)Ordered By: Foster Mayberry on 10-10-2023 HbA1c (Bld) [Mass fraction] 7.3 % 3.8-5.6 [facility] Comment on above: Normal < 5.7 % Predi abetic 5.7 - 6.4 % Diabetic >or= 6.5 % Please note range changes. Absolute lymphocyte countOrd ered By: Nicko Rabago on 10-09-2023 Lymphocytes Auto (Unsp spec) [#/Vol] 1.81 10*3/uL 0.83-4.51 [facility] Activated partial thrombopla stin time (aPTT) in platelet poor plasma by coagulation aOrdered By: Nicko Rabago on 10-09-2023 aPTT Coag (PPP) [Time] 27.0 s 24.1-36.2 [facility] Automated lymphocyte count a s percentage of total leukocytesOrdered By: Nicko Rabago on 10-09-2023 Lymphocytes/100 WBC Auto (Unsp spec) 25.4 % 19-41 [facility] Basophil percentageOrdered B y: Nicko Rabago on 10-09-2023 Basophils/100 WBC (Bld) 0.7 % 0-1 [facility] Chloride [Moles/Vol] 105 mmol/L 98-107 [facility] Eosinophils/100 WBC (Bld) 2.7 % 0-5 [facility] Glucose [Mass/Vol] 285 mg/dL 74-106 [facility] Comment on above: Glucose result great er than or equal to 200 mg/dLsuggests DIABETES MELLITUS per A.D.A. criteria. Hemoglobin (Bld) [Mass/Vol] 11.5 g/dL 13.0-16. 5 [facility] Monocytes/100 WBC (Bld) 7.7 % 0-10 [facility] Neutrophils (Bld) [#/Vol] 4.5 10*3/uL 2.0-7.7 [facility] Neutrophils/100 WBC (Bld) 63.1 % 47-70 [facility] Potassium [Moles/Vol] 4.4 mmol/L 3.5-5.1 [facility] Sodium [Moles/Vol] 138 mmol/L 136-145 [facility] WBC (Bld) [#/Vol] 7.1 10*3/uL 4.4-11.0 [facility] Determination of erythrocyte mean corpuscular volume (MCV)Ordered By: Nicko Rabago on 10-09-2023 MCV (RBC) [Entitic vol] 90.4 fL 80-94 [facility] Erythrocyte distribution wid th ratioOrdered By: Nicko Rabago on 10-09-2023 Erythrocyte distribution width (RBC) [Ratio] 13.0 % 11.6-14.6 [facility] Erythrocyte distribution wid th standard deviationOrdered By: Nicko Rabago on 10-09-2023 Erythrocyte distribution width (RBC) [Entitic vol] 42.6 fL 35.1-43.9 [facility] Hematocrit Auto (Bld) [Volum e fraction]Ordered By: Nicko Rabago on 10-09-2023 Hematocrit (Bld) [Volume fraction] 35.0 % 40-54 [facility] Immature granulocytes/100 WB C Auto (Bld)Ordered By: Nicko Rabago on 10-09-2023 Immature granulocytes/100 WBC (Bld) 0.400 % 0.0-0.9 [facility] Comment on above: IG% - Immature Granu locytes (promyelocytes, myelocytes and metamyelocytes) > 1% indicates that a LEFT SHIFT is Present. Laboratory - Chemistry and C hemistry - challengeOrdered By: Nicko Rabago on 10-09-2023 CO2 [Moles/Vol] 26.0 mmol/L 21.0-32.0 [facility] Magnesium [Mass/Vol] 2.1 mg/dL 1.6-2.6 [facility] Urea nitrogen/Creatinine [Mass ratio] 25.6 mg/mg 10-20 [facility] Laboratory - CoagulationOrde red By: Nicko Rabago on 10-09-2023 INR Coag (Bld) [Relative time] 0.9 {INR} [facility] PT Coag (PPP) [Time] 12.4 s 11.7-14.9 [facility] Laboratory - Hematology and Cell countsOrdered By: Nicko Rabago on 10-09-2023 MCH (RBC) [Entitic mass] 29.7 pg 27.0-32.0 [facility] MCHC (RBC) [Mass/Vol] 32.9 g/dL 32-36 [facility] Nucleated RBC/100 WBC (Bld) [Ratio] 0 % 0-5 [facility] Platelet mean volume (Bld) [Entitic vol] 9.5 fL 6.2-12.0 [facility] Platelets (Bld) [#/Vol] 210 10*3/uL 150-450 [facility] No Panel InformationOrdered By: Nicko Rabago on 10-09-2023 Troponin I High Sensitivity 13 pg/mL 3.0-78.0 [facility] Comment on above: Please Note: [place] t Units and Gender Specific Reference Ranges. For more information see Policy Stat Procedure [place] High Sensitivity Troponin (TNIH) and attachments. Estimated Creatinine Clearance Calc 70.42 ml/min [facility] Estimated GFR (MDRD) Amer 76 mL/min >60 [facility] Comment on above: GFR Calc Estimated GFR (MDRD) Non-Af Amer 63 mL/min >60 [facility] Comment on above: Non- GFR Calc RBC Auto (Bld) [#/Vol]Ordere d By: Nicko Rabago on 10-09-2023 RBC (Bld) [#/Vol] 3.87 10*6/uL 4.6-6.2 [facility] Serum or plasma calcium jaziel urement (mass/volume)Ordered By: Nicko Rabago on 10-09-2023 Calcium [Mass/Vol] 8.6 mg/dL 8.5-10.1 [facility] Serum or plasma creatinine m easurement (mass/volume)Ordered By: Nicko Rabago on 10-09-2023 Creatinine [Mass/Vol] 1.21 mg/dL 0.70-1.30 [facility] Comment on above: The validity of the calculated GFR & GFRAA in patients over 70 years has not been determined. Clinical correlation is essential. Serum or plasma urea nitroge n measurement (mass/volume)Ordered By: Nicko Rabago on 10-09-2023 Urea nitrogen [Mass/Vol] 31 mg/dL 7-18 [facility] Thin prep Papanicolaou smear with manual screeningOrdered By: Nicko Rabago on 10-09-2023 Thin prep Papanicolaou smear with manual screening 7 5-15 [facility] CBC W Auto Differential pane l (Bld)on 11-28-2022 Basophils (Bld) [#/Vol] 0.06 10*3/uL <0.11 k/uL [facility] Basophils/100 WBC (Bld) 1.0 % C [facility] Differential cell count method Nom (Bld) Auto [facility] Eosinophils (Bld) [#/Vol] 0.16 10*3/uL <0.46 k/ uL [facility] Eosinophils/100 WBC (Bld) 2.6 % [facility] Erythrocyte distribution width (RBC) [Ratio] 13.3 % 11.5 - 15.0 % [facility] Hematocrit (Bld) [Volume fraction] 36.6 % Low 39.0 - 51.0 % [facility] Hemoglobin (Bld) [Mass/Vol] 12.2 g/dL Low 13.0 - 17.0 g/dL [facility] Immature granulocytes (Bld) [#/Vol] <0.10 k/uL [facility] Immature granulocytes/100 WBC (Bld) 0.3 % [facility] Lymphocytes (Bld) [#/Vol] 1.01 10*3/uL 1. 00 - 4.00 k/uL [facility] Lymphocytes/100 WBC (Bld) 16.3 % [facility] MCH (RBC) [Entitic mass] 29.5 pg 26. 0 - 34.0 pg [facility] MCHC (RBC) [Mass/Vol] 33.3 g/dL 30.5 - 36.0 g/dL [facility] MCV (RBC) [Entitic vol] 88.6 fL 80.0 - 100.0 fL [facility] Monocytes (Bld) [#/Vol] 0.50 10*3/uL <0.87 k/uL [facility] Monocytes/100 WBC (Bld) 8.1 % C [facility] Neutrophils (Bld) [#/Vol] 4.46 10*3/uL 1. 45 - 7.50 k/uL [facility] Neutrophils/100 WBC (Bld) 71.7 % [facility] Nucleated RBC (Bld) [#/Vol] <0.01 k/ uL [facility] Nucleated RBC/100 WBC (Bld) [Ratio] 0.0 /100 WBC [facility] Platelet mean volume (Bld) [Entitic vol] 10.3 fL 9.0 - 12.7 fL [facility] Platelets (Bld) [#/Vol] 189 10*3/uL 150 - 400 k/uL [facility] RBC (Bld) [#/Vol] 4.13 10*6/uL Low 4.20 - 6.00 m/uL [facility] WBC (Bld) [#/Vol] 6.21 10*3/uL 3.70 - 11.00 k/uL [facility] Comprehensive metabolic 2000 panelon 11-28-2022 Albumin [Mass/Vol] 4.7 g/dL 3.9 - 4.9 g/dL [facility] ALP [Catalytic activity/Vol] 129 U/L High 38 - 113 U/L [facility] ALT [Catalytic activity/Vol] 17 U/L 10 - 54 U/L [facility] Anion gap [Moles/Vol] 10 mmol/L 9 - 18 mmol/L [facility] AST [Catalytic activity/Vol] 18 U/L 14 - 40 U/L [facility] Bilirubin [Mass/Vol] 0.4 mg/dL 0.2 - 1 .3 mg/dL [facility] Calcium [Mass/Vol] 9.6 mg/dL 8.5 - 10. 2 mg/dL [facility] Chloride [Moles/Vol] 102 mmol/L 97 - 10 5 mmol/L [facility] CO2 [Moles/Vol] 26 mmol/L 22 - 30 mmol/L [facility] Creatinine [Mass/Vol] 0.80 mg/dL 0.73 - 1.22 mg/dL [facility] Estimated Glomerular Filtration Rate 96 mL/min/1.73m >=60 mL/min/1.7 3m [facility] Glucose [Mass/Vol] 200 mg/dL High 74 - 99 mg/dL [facility] Potassium [Moles/Vol] 4.3 mmol/L 3.7 - 5.1 mmol/L [facility] Protein [Mass/Vol] 7.6 g/dL 6.3 - 8.0 g/dL [facility] Sodium [Moles/Vol] 138 mmol/L 136 - 144 mmol/L [facility] Urea nitrogen [Mass/Vol] 10 mg/dL 9 - 24 mg/dL [facility] LIPID PANEL, NONFASTINGon Cholesterol [Mass/Vol] 123 mg/dL <200 mg/dL Cl [facility] HDL Cholesterol, Nonfasting 59 mg/dL >39 mg/d L [facility] LDL Cholesterol, Nonfasting 52 mg/dL <100 mg/ dL [facility] LDL/HDL Ratio, Nonfasting 0.88 mg/dL <2 .54 mg/dL [facility] Non HDL Cholesterol, Nonfasting 64 mg/dL <130 mg/dL [facility] Total Chol/HDL Ratio, Nonfasting 2.08 mg/dL <5.10 mg/dL [facility] Triglycerides, Nonfasting 59 mg/dL <150 mg/dL [facility] VLDL Cholesterol, Nonfasting 12 mg/dL <30 mg/ dL [facility] PSA/PROSTSPECAG DIAGon 11-28 Prostate specific Ag [Mass/Vol] 3.86 ng/mL High <2.60 ng/mL [facility] Urinalysis complete panel (U )on 11-28-2022 Bilirubin Ql (U) Negative Negative [facility] Clarity (Unsp spec) Clear Clear [facility] Color (U) Colorless Yellow [facility] Glucose Test strip (U) [Mass/Vol] 2+ Abnormal Trace, Negative [facility] Hemoglobin Ql (U) Negative Negative, Trace [facility] Hyaline casts (Urine sed) [#/Area] 1-3 /LPF Abnormal 0 /LPF [facility] Ketones Ql (U) Negative Trace, Negative [facility] Leukocyte esterase Test strip Ql (U) Negative Negative, 25 Gordy/uL [facility] Nitrite Ql (U) Negative Negative [facility] pH (U) 6.0 [pH] 5.0 - 8.0 [facility] Protein (U) [Mass/Vol] Negative Trace , Negative [facility] RBC LM.HPF (Urine sed) [#/Area] 0-3 /HPF 0-3 /HPF [facility] Specific gravity (U) [Rel density] 1.008 1.005 - 1.030 [facility] Urobilinogen Ql (U) Negative Negative [facility] WBC LM.HPF (Urine sed) [#/Area] 0-5 /HPF 0-5 /HPF [facility] ANES POSTPROC EVALon 023 ANES POSTPROC EVAL HNO ID: [id number] Author: Hany Johnson MD Service: Anesthesiology Author Type: Anesthesiologist Type: Anesthesia Postprocedure Evaluation Filed: 10/14/2022 12:01 PM Note Text: POST ANESTHESIA EVALUATION NOTE : 1955 Procedure Summary Date: 10/14/22 Room / Location: [facility] Endoscopy Anesthesia Start: 1117 Anesthesia Stop: 1150 Procedures: EGD DIAGNOSTIC COLONOSCOPY DIAGNOSTIC Diagnosis: Anemia, unspecified type (Iron deficiency anemia) Scheduled Providers: Thai Santiago MD; Fernando Blanc APRN.[employer] PIPE LAYER; Hany Johnson MD Responsible Provider: Hany Johnson MD Anesthesia Type: MAC ASA Status: 3 Anesthesia Type: MAC Last Vitals Vitals Value Taken Time BP 105/68 10/14/22 1200 Temp 36.4 ?C (97.5 ?F) 10/14/22 1155 Pulse 92 10/14/22 1200 Resp 19 10/14/22 1200 SpO2 88 % 10/14/22 1200 Vitals shown include unvalidated device data. Post Anesthesia Patient Status Patient Evaluation: bedside. Anticipated Disposition: phase 2 then home. Neurological Status: aware and responsive. Pulmonary Status: breathing comfortably on room air Airway Control: returned to baseline unsupported. Cardiovascular Status: stable. Pain Management: clinically adequate Postoperative Hydration: acceptable. Intraoperative Events: no significant anesthesia events Post Operative Nausea/Vomiting Status: no significant post operative nausea or vomiting Recommendation: continue current plan of care. Anesthesia Observations No Documentation SIGNATURE: Hany Johnson MD PATIENT NAME: Michael Bates DATE: October 14, 2022 TIME: 12:01 PM CSN: [id number] Normal [facility] ANES PRE-OPon 10-14-2022 ANES PRE-OP HNO ID: [id number] Author: Hany Johnson MD Service: Anesthesiology Author Type: Anesthesiologist Type: Anesthesia Preprocedure Evaluation Filed: 10/14/2022 10:53 AM Note Text: ANESTHESIOLOGY DAY OF SURGERY NOTE : 1955 Procedure Information Date/Time: 10/14/22 1215 Scheduled providers: Thai Santiago MD; Fernando Blanc APRN.[employer]ER; Hany Johnson MD Procedures: EGD DIAGNOSTIC COLONOSCOPY DIAGNOSTIC Location: [facility] Endoscopy Estimated body mass index is 24.97 kg/m? as calculated from the following: Height as of 08/05/22: 177.8 cm (5' 10). Weight as of 10/05/22: 78.9 kg (174 lb). Most recent hematocrit and potassium results: Hematocrit 39.1 08/21/2022 Potassium 4.2 06/25/2022 Relevant Problems CARDIO (+) Carotid stenosis, asymptomatic, bilateral (+) Coronary atherosclerosis due to lipid rich plaque (+) Essential hypertension, benign (+) Migraine variant ENDO (+) Type 2 diabetes mellitus with diabetic neuropathy, without long-term current use of insulin (HCC) GI (+) GERD without esophagitis NEURO-PSYCH (+) Cervicogenic headache (+) Chronic post-traumatic headache (+) History of COVID-19 (+) Migraine variant PULMONARY (+) History of COVID-19 I - PHYSICAL EVALUATION AIRWAY Patient intubated: No. Tracheostomy tube not present Mallampati: I. TM distance: >3 FB. Neck ROM: full ROM without neurological symptoms. Mouth opening: adequate. Short neck: no. Thick neck: no DENTAL Normal dental observations. Dental findings: teeth intact. Additional exam findings: no II - ANESTHESIA PLAN ASA Score: 3 Anesthetic Plan: MAC The patient is not a current smoker. NPO Status: adequate Beta Seun Monitoring Plan Monitoring plan: standard ASA. Post Procedure Analgesic Plan Postoperative analgesic plan: parenteral or oral opioids and multimodal analgesia. Informed Consent Anesthetic risks, benefits, alternatives, personnel and consent discussed: yes. Patient / Responsible Republican agrees to proceed: yes Patient / Surrogate agrees to blood products: blood products not planned DNR status not reviewed with patient and/or family prior to surgery. Significant changes in the patient condition since the History and Physical, not otherwise documented in primary service progress note: no. Potential Anesthesia issues that may suggest increased risk of complications or contraindication to planned procedure: none. No vitals data found for the desired time range. Outpatient Medications as of 10/14/2022 Medication Sig - sertraline (ZOLOFT) 50 mg tablet 1 tablet by mouth once a day. - predniSONE (DELTASONE) 20 mg tablet One tab PO daily per cardio. - pantoprazole DR (PROTONIX) 40 mg tablet Take 1 tablet by mouth daily before breakfast. Take on empty stomach, 1/2 hr before meal. - pioglitazone (ACTOS) 30 mg tablet Take 1 tablet by mouth once daily. - gabapentin (NEURONTIN) 600 mg tablet Take 1 tablet by mouth twice daily for 30 days. - ferrous sulfate 325 mg (65 mg iron) tablet Take 1 tablet by mouth twice daily with meals. - ranolazine ER (RANEXA) 500 mg 12 hr tablet Take 1 tablet by mouth twice daily. Per cardio, Dr. Kern, not taking as of 06/28/2022 - Blood-Glucose Meter monitoring kit Glucose Meter of Choice - Kit - Dx: Type 2 DM - Uncontrolled - Lancets lancets Test blood sugar(s) 2 times daily. Dx: Type 2 DM - Uncontrolled Insulin: No - blood sugar diagnostic (BLOOD GLUCOSE TEST) test strip Test blood sugar(s) 2 times daily. Dx: Type 2 DM - Uncontrolled E11.65 Insulin: No - fluticasone (FLONASE) 50 mcg/actuation nasal spray INSTILL 2 SPRAYS IN EACH NOSTRIL ONCE DAILY - metFORMIN ER (GLUCOPHAGE XR) 500 mg 24 hr tablet Take 2 tablets by mouth twice daily. - nitroglycerin sublingual (NITROSTAT) 0.4 mg SL tablet Dissolve 1 tablet under the tongue every 5 minutes as needed for chest pain. - atorvastatin (LIPITOR) 80 mg tablet Take 1 tablet by mouth once daily. Managed by cardiology, Dr. Kern - clopidogrel (PLAVIX) 75 mg tablet Take 1 tablet by mouth once daily. Managed by [facility] - omega-3 fatty acids 1,000 mg cap Take 2 capsules by mouth once daily. - aspirin, enteric coated (ECOTRIN LOW STRENGTH) 81 mg EC tablet Take 1 tablet by mouth once daily. - Blood Pressure Monitor kit 1 Each once daily. - Blood Glucose Control High and Low (ACCU-CHEK MEGHANA CONTROL SOLN) soln Use as directed as indicated to check quality of test strips No current facility-administered medications on file as of 10/14/2022. I have interviewed and examined the patient. I have reviewed the medical record and/or the pre-anesthesia evaluation, pertinent labs, and test results. This contains updated information obtained within 48 hours of Surgery/Procedure. SIGNATURE: Hany Johnson MD PATIENT NAME: Michael Bates DATE: October 14, 2022 TIME: 10:53 AM CSN: [id number] (more content not included)... Normal [facility] COLONOSCOPY DIAGNOSTICon [facility] Colonoscopyon 10-14-2022 Colonoscopy [facility] Gastrointestinal Endoscopy Patient Name: Michael Bates Procedure Date: 10/14/2022 11:32 AM Date of : 1955 Admit Type: Outpatient Age: 67 Room: [facility] Gender: Male Note Status: Finalized Attending MD: Thai Santiago MD Procedure: Colonoscopy Indications: Iron deficiency anemia Providers: Thai Santiago MD Patient Profile: This is a 67 year old male. Refer to note in patient chart for documentation of history and physical. Last Colonoscopy: date unknown. Unable to locate last colonoscopy report. Referring Physician: Thai Santiago MD (Referring MD) Medicines: Monitored Anesthesia Care Complications: No immediate complications. Requesting Provider: Procedure: Pre-Anesthesia Assessment: - Prior to the procedure, a History and Physical was performed, and patient medications and allergies were reviewed. The patient is competent. The risks and benefits of the procedure and the sedation options and risks were discussed with the patient. All questions were answered and informed consent was obtained. Patient identification and proposed procedure were verified by the physician, the nurse and the head of product in the procedure room. Mental Status Examination: alert and oriented. Airway Examination: normal oropharyngeal airway and neck mobility. Respiratory Examination: clear to auscultation. CV Examination: normal. ASA Grade Assessment: II - A patient with mild systemic disease. After reviewing the risks and benefits, the patient was deemed in satisfactory condition to undergo the procedure. The anesthesia plan was to use monitored anesthesia care (MAC). Immediately prior to administration of medications, the patient was re-assessed for adequacy to receive sedatives. The heart rate, respiratory rate, oxygen saturations, blood pressure, adequacy of pulmonary ventilation, and response to care were monitored throughout the procedure. The physical status of the patient was re-assessed after the procedure. After I obtained informed consent, the scope was passed under direct vision. Throughout the procedure, the patient's blood pressure, pulse, and oxygen saturations were monitored continuously. The Colonoscope was introduced through the anus and advanced to the cecum, identified by the appendiceal orifice, ileocecal valve and palpation. The ileocecal valve, appendiceal orifice, and rectum were photographed. The colonoscopy was performed without difficulty. The patient tolerated the procedure well. The quality of the bowel preparation was good. Scope Withdrawal Time: 0 hours 7 minutes 11 seconds Moderate Sedation: MAC anesthesia was administered by the anesthesia team. Total Procedure Duration: 0 hours 14 minutes 10 seconds Findings: The perianal and digital rectal examinations were normal. Multiple small and large-mouthed diverticula were found in the sigmoid colon. The exam was otherwise without abnormality on direct and retroflexion views. Impression: - Diverticulosis in the sigmoid colon. - The examination was otherwise normal on direct and retroflexion views. - No specimens collected. Recommendation: - Discharge patient to home. - Resume previous diet. - Continue present medications. - Return to my office in 1 week. - Patient has a contact number available for emergencies. The signs and symptoms of potential delayed complications were discussed with the patient. Return to normal activities tomorrow. Written discharge instructions were provided to the patient. - Resume anticoagulant at prior dose. - Repeat colonoscopy in 10 years for screening purposes. Procedure Code(s): --- Professional --- 74233, Colonoscopy, flexible; diagnostic, including collection of specimen(s) by brushing or washing, when performed (separate procedure) CPT copyright 2020 [employer]. All rights reserved. The codes documented in this report are preliminary and upon promotional marketing analyst review may be revised to meet current compliance requirements. Attending Participation: I was present and participated during the entire procedure, including non-miles portions, and during the administration and monitoring of Moderate Sedation. Scope In: 11:34:18 AM Scope Out: 11:48:28 AM MD Thai Gillespie MD 10/14/2022 12:17:10 PM This report has been signed electronically by Thai Santiago MD Number of Addenda: 0 Note Initiated On: 10/14/2022 11:32 AM Estimated Blood Loss: Estimated blood loss: none. Normal [facility] EGD DIAGNOSTICon 10-14-2022 [facility] GLUCOSE, BLOOD (POC)on 10-14 Glucose [Mass/Vol] 157 mg/dL Abnormal 74 - 99 mg/dL [facility] Glucose [Mass/Vol] 179 mg/dL Abnormal 74 - 99 mg/dL [facility] HISTORY PHYSICALon HISTORY PHYSICAL HNO ID: [id number] Author: Thai Santiago MD Service: General Surgery Author Type: Physician Type: HANDP Filed: 10/14/2022 10:51 AM Note Text: HISTORY AND PHYSICAL Michael Bates 1955 REFERRING [...] Date 2D ECHO (EXEP) 01/16/2017 EF=60%, 1+ MD and TI CATARACT EXTRACTION HX Left 10/2019 [...] hr tablet Take 2 tablets by mouth (more content not included)... Normal [facility] SURGICAL PATHOLOGYon 023 ADDENDUM 1: Normal [facility] Comment on above: Order Comment: Walter sexton Type: TISSUE SPECIMEN Ordering Facility: [facility] Address: [address] [place] [address] Result Comment: Adde ndum is issued to reflect the result of immunohistochemical stain: - Immunostain for H. pylori is negative in part A. Addendum electronically signed by Griffin Falk MD, PhD on 10/18/2022 at 7:45 PM Performed By: #### S #### [facility] CLIA [id number] [address] [place] [address] [place] CASE REPORT Normal [facility] Comment on above: Order Comment: Nuhai carlie Type: TISSUE SPECIMEN Ordering Facility: [facility] Address: [address] [place] [address] Result Comment: Surg [facility] Pathology Report Case: [id number] Authorizing Provider: Thai Santiago MD Collected: 10/14/2022 11:26 AM Ordering Location: [facility] Endoscopy Received: 10/14/2022 12:19 PM Pathologist: Griffin Falk MD, PhD Specimens: A) - ANTRUM (STOMACH) BIOPSY B) - ESOPHAGUS LOWER BIOPSY, Esophagus Bx @ 38cm C) - ESOPHAGUS MID BIOPSY, Esophagus Bx @ 30cm D) - ESOPHAGUS PROXIMAL BIOPSY, Esophagus Bx @ 25cm Performed By: #### S #### [facility] CLIA [id number] [address] [place] [address] OF [facility] FINAL DIAGNOSIS [facility] Comment on above: Order Comment: Speci men Type: TISSUE SPECIMEN Ordering Facility: [facility] Address: [address] [place] [address] Result Comment: A. A ntrum, biopsy: - Focal active gastritis and reactive [...] - Overlying squamous epithelium with reactive change. Performed By: #### S #### [facility] CLIA [id number] [place] FINAL PERFORMING LAB Normal [facility] Comment on above: Order Comment: Speci men Type: TISSUE SPECIMEN Ordering Facility: [facility] Address: [address] [place] [address] Result Comment: Diag nostic interpretation performed at [place] [address] CLIA# [id number] Rn Diabetes Educator: Olayinka Paz M.D. Performed By: #### S #### [facility] CLIA [id number] [address] [place] [address] OF [facility] GROSS DESCRIPTION Normal [facility] Comment on above: Order Comment: Walter sexton Type: TISSUE SPECIMEN Ordering Facility: [facility] Address: [address] [place] [address] Result Comment: A. A NTRUM (STOMACH) BIOPSY Received in formalin is one [...] in one cassette. Gross examination performed at [facility] [address] [place] [address], [place] [id number] JT 10/14/2022 8:25 PM Performed By: #### S #### [facility] CLIA [id number] [address] [place] [address] [id number] [id number] [place] Upper GI endoscopyon 023 Upper GI endoscopy [facility] Gastrointestinal Endoscopy Patient Name: Michael Bates Procedure Date: 10/14/2022 11:02 AM Date of : 1955 Admit Type: Outpatient Age: 67 Room: [facility] Gender: Male Note Status: Finalized Attending MD: Thai Santiago MD Procedure: Upper GI endoscopy Indications: Iron deficiency anemia Providers: Thai Santiago MD Patient Profile: This is a 67 year old male. Refer to note in patient chart for documentation of history and physical. Referring Physician: Thai Santiago MD (Referring MD) Medicines: Monitored Anesthesia Care Complications: No immediate complications. Requesting Provider: Procedure: Pre-Anesthesia Assessment: - Prior to the procedure, a History and Physical was performed, and patient medications and allergies were reviewed. The patient is competent. The risks and benefits of the procedure and the sedation options and risks were discussed with the patient. All questions were answered and informed consent was obtained. Patient identification and proposed procedure were verified by the physician, the nurse and the head of product in the procedure room. Prophylactic Antibiotics: The patient does not require prophylactic antibiotics. Prior Anticoagulants: The patient has taken Plavix (clopidogrel), last dose was 1 day prior to procedure. ASA Grade Assessment: III - A patient with severe systemic disease. After reviewing the risks and benefits, the patient was deemed in satisfactory condition to undergo the procedure. The anesthesia plan was to use monitored anesthesia care (MAC). Immediately prior to administration of medications, the patient was re-assessed for adequacy to receive sedatives. The heart rate, respiratory rate, oxygen saturations, blood pressure, adequacy of pulmonary ventilation, and response to care were monitored throughout the procedure. The physical status of the patient was re-assessed after the procedure. After obtaining informed consent, the endoscope was passed under direct vision. Throughout the procedure, the patient's blood pressure, pulse, and oxygen saturations were monitored continuously. The Endoscope was introduced through the mouth, and advanced to the jejunum. The upper GI endoscopy was accomplished without difficulty. The patient tolerated the procedure well. Moderate Sedation: MAC anesthesia was administered by the anesthesia team. Total Procedure Duration: 0 hours 8 minutes 12 seconds Findings: The examined jejunum was normal. The examined duodenum was normal. Scattered mild inflammation characterized by erythema was found in the entire examined stomach. Biopsies were taken with a cold forceps for histology. A small hiatal hernia was present. The esophagus and gastroesophageal junction were examined with white light and narrow band imaging (NBI) from a forward view and retroflexed position. There were esophageal mucosal changes suspicious for long-segment Santos's esophagus. These changes involved the mucosa at the upper extent of the gastric folds (38 cm from the incisors) extending to the Z-line (38 cm from the incisors). Tongues of salmon-colored mucosa were present and islands of salmon-colored mucosa were present. The maximum longitudinal extent of these esophageal mucosal changes was 13 cm in length. Mucosa was biopsied with a cold forceps for histology randomly at intervals of 4 cm from 25 to 38 cm from the incisors. A total of 3 specimen bottles were sent to pathology. Impression: - Normal examined jejunum. - Normal examined duodenum. - Gastritis. Biopsied. - Small hiatal hernia. - Esophageal mucosal changes suspicious for long-segment Santos's esophagus. Biopsied. Recommendation: - Discharge patient to home. - Resume previous diet. - Continue present medications. - Await pathology results. - Return to my office in 1 week. Procedure Code(s): --- Professional --- 16573, Esophagogastroduodenos copy, flexible, transoral; with biopsy, single or multiple CPT copyright 2020 [employer]. All rights reserved. The codes documented in this report are preliminary and upon promotional marketing analyst review may be revised to meet current compliance requirements. Attending Participation: I personally performed the entire procedure. Scope In: 11:24:01 AM Scope Out: 11:32:13 AM MD Thai Gillespie MD 10/14/2022 11:56:49 AM This report has been signed electronically by Thai Santiago MD Number of Addenda: 0 Note Initiated On: 10/14/2022 11:02 AM Estimated Blood Loss: Estimated blood loss: none. Normal [facility] XR FOOT GENERAL 3V AP/LAT/OB L LEFTon 09-23-2022 [facility] XR Foot - left AP and Latera l and obliqueon 09-23-2022 IMPRESSION: No radiographic evidence of acute osseous injury Letter Sorting Machine Operator: FAWN Transcribe Date/Time: Sep 23 2022 1:46P Dictated by : PHYLLIS TORRES MD This examination was interpreted and the report reviewed and electronically signed by: PHYLLIS TORRES MD on Sep 23 2022 1:55PM [facility] DIVISION OF RADIOLOGY * * *Final Report* * * DATE OF EXAM: Sep 23 2022 1:40PM WOX 5336 - XR FOOT 3V AP/LAT/OBL LT / PROCEDURE REASON: Foot injury, left, initial encounter * * * * Physician Interpretation * * * * TITLE: XR FOOT 3V AP/LAT/OBL LT CLINICAL HISTORY: Foot injury, left, initial encounter TECHNIQUE: 3 view radiographic study of the left foot COMPARISON: None FINDINGS: No acute fracture or dislocation identified. Dorsal and miniscule plantar calcaneal enthesophytes. Scattered mild joint space narrowing of the interphalangeal joints. Atherosclerotic calcification of the vasculature. Surgical clips in the medial soft tissues of the hindfoot. DIVISION OF RADIOLOGY [facility] * * *Final Report* * * DATE OF EXAM: Sep 23 2022 1:40PM WOX 5336 - XR FOOT 3V AP/LAT/OBL LT / PROCEDURE REASON: Foot injury, left, initial encounter * * * * Physician Interpretation * * * * TITLE: XR FOOT 3V AP/LAT/OBL LT CLINICAL HISTORY: Foot injury, left, initial encounter TECHNIQUE: 3 view radiographic study of the left foot COMPARISON: None FINDINGS: No acute fracture or dislocation identified. Dorsal and miniscule plantar calcaneal enthesophytes. Scattered mild joint space narrowing of the interphalangeal joints. Atherosclerotic calcification of the vasculature. Surgical clips in the medial soft tissues of the hindfoot. IMPRESSION IMPRESSION: No radiographic evidence of acute osseous injury Letter Sorting Machine Operator: FAWN Transcribe Date/Time: Sep 23 2022 1:46P Dictated by : PHYLLIS TORRES MD This examination was interpreted and the report reviewed and electronically signed by: PHYLLIS TORRES MD on Sep 23 2022 1:55PM EST [facility] Radiology Study observation (narrative) [facility] XR Foot - left AP and Latera l and obliqueOrdered By: Ccf Provider on 09-23-2022 [facility] Jesse 08-22-2022 CNPN Telephone ([facility]) MICHAEL BATES ([id number]) 1955 M Date Time Provider Department 08/22/22 NADIR GRADY [facility] During your visit today, we recorded the following information about you: Nadir Grady MD 08/22/2022 9:11 AM Signed Let Michael know I did some looking into alternate treatments for esophageal spasms. There is a med called hyoscyamine that he would take three times a day and it will not affect BP. If interested I will send in script to [facility]. Karla Wadsworth MA 08/22/2022 9:23 AM Signed Spoke with Michael and gave Dr. Grady recommendations. He said he would think about it and let us know. I patient I would send the name of the medication via tado. ANA Mott MD 08/22/2022 9:35 AM Signed Noted. Allergies As of Date: 08/22/2022 Noted Allergy Reaction FLORINEF (FLUDROCORTISONE) 04/25/2022 18 - Angioedema PERFUMES 01/20/2012 14 - Other: See Comments Comments: sneezing Date Reviewed: 08/21/2022 Reviewed by: Nadir Grady MD - Fully Assessed Reason for Visit: Patient Update [1234] Prescriptions as of 08/22/2022 - pseudoephedrine (SUDAFED) 30 mg tablet Take 1 tablet by mouth three times daily. - gabapentin (NEURONTIN) 800 mg tablet Take 1 tablet by mouth twice daily for 90 days. - ranolazine ER (RANEXA) 500 mg 12 hr tablet Take 1 tablet by mouth twice daily. Per cardio, Dr. Kern, not taking as of 06/28/2022 - ferrous sulfate 325 mg (65 mg iron) tablet Take 1 tablet by mouth twice daily with meals. - glimepiride (AMARYL) 2 mg tablet Take 1 tablet by mouth daily with breakfast. - Blood-Glucose Meter monitoring kit Glucose Meter of Choice - Kit - Dx: Type 2 DM - Uncontrolled E11.65 - Lancets lancets Test blood sugar(s) 2 times daily. Dx: Type 2 DM - Uncontrolled E11.65 Insulin: No - blood sugar diagnostic (BLOOD GLUCOSE TEST) test strip Test blood sugar(s) 2 times daily. Dx: Type 2 DM - Uncontrolled E11.65 Insulin: No - fluticasone (FLONASE) 50 mcg/actuation nasal spray INSTILL 2 SPRAYS IN EACH NOSTRIL ONCE DAILY - pioglitazone (ACTOS) 30 mg tablet Take 1 tablet by mouth once daily. - metFORMIN ER (GLUCOPHAGE XR) 500 mg 24 hr tablet Take 2 tablets by mouth twice daily. - nitroglycerin sublingual (NITROSTAT) 0.4 mg SL tablet Dissolve 1 tablet under the tongue every 5 minutes as needed for chest pain. - atorvastatin (LIPITOR) 80 mg tablet Take 1 tablet by mouth once daily. Managed by cardiology, Dr. Kern - clopidogrel (PLAVIX) 75 mg tablet Take 1 tablet by mouth once daily. Managed by [facility] - omega-3 fatty acids 1,000 mg cap Take 2 capsules by mouth once daily. - aspirin, enteric coated (ECOTRIN LOW STRENGTH) 81 mg EC tablet Take 1 tablet by mouth once daily. - Blood Pressure Monitor kit 1 Each once daily. 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] 12/04/2007 Unspecified pruritic disorder [L29.9] 03/02/2009 04/12/2020 Lumbago [M54.50] 02/09/2010 Sciatica [M54.30] 02/09/2010 Neck sprain and strain [S13.9XXA] 07/30/2010 08/30/2010 Other physical therapy [EDR0812] 08/16/2010 08/30/2010 Essential hypertension, benign [I10] 01/17/2012 DDD (degenerative disc disease), cervical [M50.*01/20/2012 Cervical spondylosis [M47.812] 01/20/2012 Chronic sinusitis [J32.9] Hyperlipidemia [E78.5] 08/04/2015 Mixed hyperlipidemia [E78.2] 08/04/2015 Lumbar radiculopathy [M54.16] Chronic post-traumatic headache [G44.329] 08/04/2015 Bilateral occipital neuralgia [M54.81] 08/04/2015 Seborrheic dermatitis [L21.9] 08/04/2015 Elevated LFTs [R79.89] 08/05/2015 Carotid stenosis, asymptomatic, bilateral [I65.*08/09/2015 Neck pain, chronic [M54.2, G89.29] 10/16/2015 Cervicogenic headache [G44.86] 10/16/2015 DDD (degenerative disc disease), lumbar [M51.36]06/30/2016 Radicular pain of right lower extremity [M54.10]07/09/2016 Acute right-sided low back pain with right-side*07/09/2016 Well adult exam [Z00.00] 10/03/2016 04/12/2020 Benign non-nodular prostatic hyperplasia withou*10/03/2016 Disorder of prostate [N42.9] 10/03/2016 Type 2 diabetes mellitus with diabetic neuropat*10/07/2016 Bilateral chronic knee pain [M25.561, M25.562, *10/10/2016 Coronary atherosclerosis due to lipid rich plaq*01/20/2017 S/P drug eluting coronary stent placement [Z95.*01/20/2017 Diabetic eye exam (HCC) [Z01.00, E11.9] 03/19/2017 Leg pain, bilateral [M79.604, M79.605] 06/04/2017 Medicare annual wellness visit, subsequent [Z00*06/12/2018 GERD without esophagitis [K21.9] 06/12/2018 Neuropathy (HCC) [G62.9] (more content not included)... Normal [facility] CBC W Auto Differential pane l (Bld)on 08-21-2022 Basophils (Bld) [#/Vol] 0.07 10*3/uL <0.11 k/uL [facility] Basophils/100 WBC (Bld) 1.4 % C [facility] Differential cell count method Nom (Bld) Auto [facility] Eosinophils (Bld) [#/Vol] 0.25 10*3/uL <0.46 k/ uL [facility] Eosinophils/100 WBC (Bld) 5.2 % [facility] Erythrocyte distribution width (RBC) [Ratio] 12.9 % 11.5 - 15.0 % [facility] Hematocrit (Bld) [Volume fraction] 39.1 % 39.0 - 51.0 % [facility] Hemoglobin (Bld) [Mass/Vol] 12.2 g/dL Low 13.0 - 17.0 g/dL [facility] Immature granulocytes (Bld) [#/Vol] <0.10 k/uL [facility] Immature granulocytes/100 WBC (Bld) 0.2 % [facility] Lymphocytes (Bld) [#/Vol] 1.04 10*3/uL 1. 00 - 4.00 k/uL [facility] Lymphocytes/100 WBC (Bld) 21.5 % [facility] MCH (RBC) [Entitic mass] 29.0 pg 26. 0 - 34.0 pg [facility] MCHC (RBC) [Mass/Vol] 31.2 g/dL 30.5 - 36.0 g/dL [facility] MCV (RBC) [Entitic vol] 93.1 fL 80.0 - 100.0 fL [facility] Monocytes (Bld) [#/Vol] 0.50 10*3/uL <0.87 k/uL [facility] Monocytes/100 WBC (Bld) 10.3 % C [facility] Neutrophils (Bld) [#/Vol] 2.97 10*3/uL 1. 45 - 7.50 k/uL [facility] Neutrophils/100 WBC (Bld) 61.4 % [facility] Nucleated RBC (Bld) [#/Vol] <0.01 k/ uL [facility] Nucleated RBC/100 WBC (Bld) [Ratio] 0.0 /100 WBC [facility] Platelet mean volume (Bld) [Entitic vol] 9.6 fL 9.0 - 12.7 fL [facility] Platelets (Bld) [#/Vol] 216 10*3/uL 150 - 400 k/uL [facility] RBC (Bld) [#/Vol] 4.20 10*6/uL 4.20 - 6.00 m/uL [facility] WBC (Bld) [#/Vol] 4.84 10*3/uL 3.70 - 11.00 k/uL [facility] Iron and Iron binding capaci ty panelon 08-21-2022 Iron [Mass/Vol] 74 ug/dL 41 - 186 ug/dL [facility] Iron binding capacity [Mass/Vol] 402 ug/dL High 232 - 386 ug/dL [facility] Iron/TIBC [Molar ratio] 18.4 % 15.0 - 57.0 % [facility] UA DIP, URINE (POC)on 2021 BILIRUBIN UA (POCT) Negative Negative [facility] CLARITY UA (POCT) Clear [facility] COLOR UA (POCT) Yellow [facility] GLUCOSE UA (POCT) Negative Negative mg/dL [facility] HEMOGLOBIN/BLOOD UA (POCT) Negative Negative [facility] KETONE UA (POCT) Negative Negative mg/dL [facility] LEUKOCYTES UA (POCT) Negative Negative [facility] NITRITE UA (POCT) Negative Negative [facility] PH UA (POCT) 6.0 4.5 - 8.0 [facility] Protein Ql (U) Negative Negative mg/dL [facility] SPECIFIC GRAVITY UA (POCT) 1.010 1 .005 - 1.030 [facility] UROBILINOGEN UA (POCT) 0.2 E.U./dL Brandy l E.U./dL [facility] No Panel Informationon 07-09 [facility] No Panel Informationon 07-01 [facility] XR CHEST 2V FRONTAL/LATon [facility] XR Chest PA and Lateralon IMPRESSION: No acute radiographic abnormality. Letter Sorting Machine Operator: FAWN Transcribe Date/Time: Jun 25 2022 9:32A Dictated by : JEANETH ASENCIO MD This examination was interpreted and the report reviewed and electronically signed by: JEANETH ASENCIO MD on Jun 25 2022 9:33AM EST DIVISION OF RADIOLOGY * * *Final Report* * * DATE OF EXAM: Jun 25 2022 8:52AM WOX 5291 - XR CHEST 2V FRONTAL/LAT / PROCEDURE REASON: Abnormal weight loss * * * * Physician Interpretation * * * * EXAMINATION: CHEST RADIOGRAPH (2 VIEW FRONTAL & LATERAL) CLINICAL HISTORY: Abnormal weight loss MQ: XC2_6 EXAM DATE/TIME: 06/25/2022 8:52 AM COMPARISON: 06/27/2021 RESULT: Lines, tubes, and devices: None. Lungs and pleura: No consolidation. No lung mass. No pleural effusion. No pneumothorax. Cardiomediastinal silhouette: Normal cardiomediastinal silhouette. Bones and soft tissues: Unremarkable. DIVISION OF RADIOLOGY Provider, [facility] - 06/25/2022 * * *Final Report* * * DATE OF EXAM: Jun 25 2022 8:52AM WOX 5291 - XR CHEST 2V FRONTAL/LAT / PROCEDURE REASON: Abnormal weight loss * * * * Physician Interpretation * * * * EXAMINATION: CHEST RADIOGRAPH (2 VIEW FRONTAL & LATERAL) CLINICAL HISTORY: Abnormal weight loss MQ: XC2_6 EXAM DATE/TIME: 06/25/2022 8:52 AM COMPARISON: 06/27/2021 RESULT: Lines, tubes, and devices: None. Lungs and pleura: No consolidation. No lung mass. No pleural effusion. No pneumothorax. Cardiomediastinal silhouette: Normal cardiomediastinal silhouette. Bones and soft tissues: Unremarkable. IMPRESSION IMPRESSION: No acute radiographic abnormality. Letter Sorting Machine Operator: PSCB Transcribe Date/Time: Jun 25 2022 9:32A Dictated by : JEANETH ASENCIO MD This examination was interpreted and the report reviewed and electronically signed by: JEANETH ASENCIO MD on Jun 25 2022 9:33AM EST [facility] Radiology Study observation (narrative) [facility] XR Chest PA and LateralOrder ed By: Ccf Provider on 06-25-2022 [facility] Absolute lymphocyte counton 05-28-2022 Lymphocytes Auto (Unsp spec) [#/Vol] 0.55 10*3/uL 0.83-4.51 [facility] Work Phone: Basophil percentageon 2021 Basophils/100 WBC (Bld) 0.2 % 0-1 [facility] Work Phone: Chloride [Moles/Vol] 100 mmol/L 98-107 [facility] Work [facility]: Eosinophils/100 WBC (Bld) 0.2 % 0-5 [facility] Work Phone: Glucose [Mass/Vol] 385 mg/dL 74-106 [facility] Work Phone: Comment on above: Glucose result great er than or equal to 200 mg/dLsuggests DIABETES MELLITUS per A.D.A. criteria. Neutrophils (Bld) [#/Vol] 4.0 10*3/uL 2.0-7.7 [facility] Work Phone: Neutrophils/100 WBC (Bld) 80.9 % 47-70 [facility] Work Phone: Potassium [Moles/Vol] 3.4 mmol/L 3.5-5.1 [facility] Work Phone: Sodium [Moles/Vol] 138 mmol/L 136-145 [facility] Work Phone: WBC (Bld) [#/Vol] 4.9 10*3/uL 4.4-11.0 [facility] Work Phone: Blood erythrocytes count (nu mber/volume)on 05-28-2022 RBC (Bld) [#/Vol] 3.86 10*6/uL 4.6-6.2 [facility] Work Phone: Blood hemoglobin measurement (mass/volume)on 05-28-2022 Hemoglobin (Bld) [Mass/Vol] 11.7 g/dL 13.0-16. 5 [facility] Work Phone: Blood lymphocytes/100 leukoc yteson 05-28-2022 Lymphocytes/100 WBC (Bld) 11.3 % 19-41 [facility] Work Phone: Blood manual differential co mment interpretation (narrative result)on 05-28-2022 Manual differential comment Santi (Bld) [Interp] SEE COMMENT [facility] Work Phone: Comment on above: LYMPHOPENIA NOTED Blood monocytes/100 leukocyt eson 05-28-2022 Monocytes/100 WBC (Bld) 7.2 % 0-10 [facility] Work Phone: [phone] Blood platelet adequacy dete ction by light microscopyon 05-28-2022 Platelets LM Ql (Bld) ADEQUATE ADEQ [facility] Work Phone: [phone] Blood platelet mean volumeon 05-28-2022 Platelet mean volume (Bld) [Entitic vol] 9.5 fL 6.2-12.0 [facility] Work Phone: Determination of erythrocyte mean corpuscular volume (MCV)on 05-28-2022 MCV (RBC) [Entitic vol] 87.6 fL 80-94 [facility] Work Phone: [phone] Hematocrit Auto (Bld) [Volum e fraction]on 05-28-2022 Hematocrit (Bld) [Volume fraction] 33.8 % 40-54 [facility] Work Phone: [phone] Laboratory - Chemistry and C hemistry - challengeon 05-28-2022 CO2 [Moles/Vol] 28.0 mmol/L 21.0-32.0 [facility] Work Phone: [phone] Urea nitrogen/Creatinine [Mass ratio] 11.3 mg/mg 10-20 [facility] Work Phone: Laboratory - Hematology and Cell countson 05-28-2022 Anisocytosis Ql (Bld) RARE [facility] Work Phone: [phone] Erythrocyte distribution width (RBC) [Entitic vol] 43.0 fL 35.1-43.9 [facility] Work Phone: [phone] Erythrocyte distribution width (RBC) [Ratio] 13.6 % 11.6-14.6 [facility] Work Phone: Immature granulocytes/100 WBC (Bld) 0.200 % 0.0-0.9 [facility] Work Phone: Comment on above: IG% - Immature Granu locytes (promyelocytes, myelocytes and metamyelocytes) > 1% indicates that a LEFT SHIFT is Present. MCH (RBC) [Entitic mass] 30.3 pg 27.0-32.0 [facility] Work Phone: Nucleated RBC/100 WBC (Bld) [Ratio] 0 % 0-5 [facility] Work Phone: MCHC Auto (RBC) [Mass/Vol]on 05-28-2022 MCHC (RBC) [Mass/Vol] 34.6 g/dL 32-36 [facility] Work Phone: No Panel Informationon 05-28 Troponin I High Sensitivity 12 pg/mL 3.0-78.0 [facility] Work Phone: Comment on above: Please Note: [place] t Units and Gender Specific Reference Ranges. For more information see Policy Stat Procedure [place] High Sensitivity Troponin (TNIH) and attachments. Estimated Creatinine Clearance Calc 67.91 ml/min [facility] Work Phone: Estimated GFR (MDRD) Amer 89 mL/min >60 [facility] Work Phone: Comment on above: GFR Calc Estimated GFR (MDRD) Non-Af Amer 74 mL/min >60 [facility] Work Phone: Comment on above: Non- GFR Calc Platelets bldon 05-28-2022 Platelets (Bld) [#/Vol] 217 10*3/uL 150-450 [facility] Work Phone: RBC morphologyon 05-28-2022 RBC morphology finding Nom (Bld) N CHROM NORMAL NORM C&C [facility] Work Phone: Serum or plasma calcium jaziel urement (mass/volume)on 05-28-2022 Calcium [Mass/Vol] 9.7 mg/dL 8.5-10.1 [facility] Work Phone: Serum or plasma creatinine m easurement (mass/volume)on 05-28-2022 Creatinine [Mass/Vol] 1.06 mg/dL 0.70-1.30 [facility] Work Phone: Comment on above: The validity of the calculated GFR & GFRAA in patients over 70 years has not been determined. Clinical correlation is essential. Serum or plasma urea nitroge n measurement (mass/volume)on 05-28-2022 Urea nitrogen [Mass/Vol] 12 mg/dL 7-18 [facility] Work Phone: Thin prep Papanicolaou smear with manual screeningon 05-28-2022 Thin prep Papanicolaou smear with manual screening 10 5-15 [facility] Work Phone: Serum or plasma cortisol osbaldo surement (mass/volume)on 04-24-2022 Cortisol [Mass/Vol] 31.00 ug/dL 3.44-22.45 [facility] Work Phone: Comment on above: Adult (AM) 5.27 - 22 .45 ug/dL Adult (PM) 3.44 - 16.76 ug/dLPlease note revised CORTISOL reference range effective 2019. Basophil percentageon 2021 Bilirubin [Mass/Vol] 0.30 mg/dL 0.20-1.00 [facility] Work Phone: Comment on above: For patients on eltr ombopag therapy, use of Dimension [place] TBIL is not recommended. Cholesterol [Mass/Vol] 103 mg/dL <200 [facility] Work Phone: Comment on above: <200 mg/dL Desirable 200-240 mg/dL Borderline >240 mg/dL High Risk Protein [Mass/Vol] 7.2 g/dL 6.4-8.2 [facility] Work Phone: Triglyceride [Mass/Vol] 128 mg/dL <199 [facility] Work Phone: Comment on above: The drugs N-Acetylcy steine and Metamizole may falsely depress this assay.Serum Triglycerides Reference Interval Normal <150 mg/dL Borderline high 150 - 199 mg/dL High 200 - 499 mg/dL Very High > or = 500 mg/dL Direct bilirubinon Bilirubin.direct [Mass/Vol] 0.10 mg/dL 0.00-0.3 0 [facility] Work Phone: LIPID PANEL (OUTSIDE)on 04-01 LDL:HDL Ratio [facility] Non-HDL Cholesterol [facility] TC:HDL Ratio [facility] VLDL Cholesterol [facility] - Chemistry and C hemistry - challengeon 04-17-2022 ALP [Catalytic activity/Vol] 125 U/L 45-117 [facility] Work Phone: ALT [Catalytic activity/Vol] 24 U/L 16-61 [facility] Work Phone: Globulin (S) [Mass/Vol] 3.7 g/dL 2.2-4.2 [facility] Work Phone: Serum or plasma albumin jaziel urement (mass/volume)on 04-17-2022 Albumin [Mass/Vol] 3.5 g/dL 3.2-5.0 [facility] Work Phone: Serum or plasma cholesterol in HDL measurement (mass/volume)on 04-17-2022 Cholesterol in HDL [Mass/Vol] 38 mg/dL >40 [facility] Work Phone: Comment on above: The drugs N-Acetylcy steine and Metamizole may falsely depress this assay. Reference Range HDL <40 mg/dL Low HDL Cholesterol HDL >or= 60 mg/dL High HDL Cholesterol Serum or plasma cholesterol in VLDL measurement (mass/volume)on 04-17-2022 Cholesterol in VLDL [Mass/Vol] 26 mg/dL 5-40 [facility] Work Phone: Serum or plasma low density lipoprotein (LDL) cholesterol measurement (mass/volume)on 04-17-2022 Cholesterol in LDL [Mass/Vol] 39 mg/dL 0-130 [facility] Work Phone: Thin prep Papanicolaou smear with manual screeningon 04-17-2022 Thin prep Papanicolaou smear with manual screening 14 U/L 15-37 [facility] Work Phone: Basic metabolic 2000 panelon 04-05-2022 Anion gap [Moles/Vol] 6 mmol/L Normal 5-16 [facility] Comment on above: Order Comment: Speci men Type: BLOOD SPECIMEN Ordering Facility: [facility] Address: [address] [place] [address] Performed By: #### 2 4321-2 #### [facility] CLIA [id number] [address] [place] [address] [place] Calcium [Mass/Vol] 9.4 mg/dL Normal 8.5-10.5 [facility] Comment on above: Order Comment: Speci men Type: BLOOD SPECIMEN Ordering Facility: [facility] Address: [address] [place] [address] Performed By: #### 2 4321-2 #### [facility] CLIA [id number] [address] [place] [address] [place] Chloride [Moles/Vol] 105 mmol/L Normal 98-107 [facility] Comment on above: Order Comment: Speci men Type: BLOOD SPECIMEN Ordering Facility: [facility] Address: [address] [place] [address] Performed By: #### 2 4321-2 #### [facility] CLIA [id number] [address] [place] [address] [place] CO2 [Moles/Vol] 25 mmol/L Normal 21-32 [facility] Comment on above: Order Comment: Speci men Type: BLOOD SPECIMEN Ordering Facility: [facility] Address: [address] [place] [address] Performed By: #### 2 4321-2 #### [facility] CLIA [id number] [address] [place] [address] [place] Creatinine [Mass/Vol] 0.81 mg/dL Normal 0.50-1.40 [facility] Comment on above: Order Comment: Speci men Type: BLOOD SPECIMEN Ordering Facility: [facility] Address: [address] [phone] Result Comment: Nancy ents receiving either N-Acetylcysteine (NAC) or Metamizole prior to venipuncture, may have falsely depressed results. Performed By: #### 2 4321-2 #### [facility] CLIA [id number] [address] [place] [address] [place] ESTIMATED GLOMERULAR FILTRATION RATE 95 mL/min/1.73m??? Normal >=60 [facility] Comment on above: Order Comment: Walter sexton Type: BLOOD SPECIMEN Ordering Facility: [facility] Address: [address] [place] [address] Result Comment: Abril mated Glomerular Filtration Rate (eGFR) is calculated using the 2020 CKD-EPI creatinine equation. This equation utilizes serum creatinine, sex, and age as parameters. The creatinine assay has traceable calibration to isotope dilution-mass spectrometry. Refer to KDIGO guidelines for clinical interpretation. In patients with unstable renal function, e.g. those with acute kidney injury, the eGFR may not accurately reflect actual GFR. Performed By: #### 2 4321-2 #### [facility] CLIA [id number] [address] [place] [address] [place] Glucose [Mass/Vol] 177 mg/dL High 70-100 [facility] Comment on above: Order Comment: Walter sexton Type: BLOOD SPECIMEN Ordering Facility: [facility] Address: [address] [place] [address] Result Comment: The [place] Diabetes Association (ADA) provides guidance for cutoff values for fasting glucose and random glucose. The ADA defines fasting as no caloric intake for at least 8 hours. Fasting plasma glucose results between 100 to 125 mg/dL indicate increased risk for diabetes (prediabetes). Fasting plasma glucose results greater than or equal to 126 mg/dL meet the criteria for diagnosis of diabetes. In the absence of unequivocal hyperglycemia, results should be confirmed by repeat testing. In a patient with classic symptoms of hyperglycemia or hyperglycemic crisis, random plasma glucose results greater than or equal to 200 mg/dL meet the criteria for diagnosis of diabetes. Reference: Standards of Medical Care in Diabetes 2016, [place] Diabetes Association. Diabetes Care. 2016.39(Suppl 1). Results may be falsely elevated after the administration of Sulfapyridine. Results may be falsely depressed after the administration of Sulfasalazine. Performed By: #### 2 4321-2 #### [facility] CLIA [id number] [address] [place] [address] [place] Potassium [Moles/Vol] 5.5 mmol/L High 3.5-5.1 [facility] Comment on above: Order Comment: Speci men Type: BLOOD SPECIMEN Ordering Facility: [facility] Address: [address] [place] [address] Result Comment: Slig ht Hemolysis, Result may be affected. Performed By: #### 2 4321-2 #### [facility] CLIA [id number] [address] [place] [address] [place] Sodium [Moles/Vol] 136 mmol/L Normal 136-145 [facility] Comment on above: Order Comment: Speci carlie Type: BLOOD SPECIMEN Ordering Facility: [facility] Address: [address] [place] [address] Performed By: #### 2 4321-2 #### [facility] CLIA [id number] [address] [place] [address] [place] Urea nitrogen [Mass/Vol] 15 mg/dL Normal 7-26 [facility] Comment on above: Order Comment: Nuhai carlie Type: BLOOD SPECIMEN Ordering Facility: [facility] Address: [address] [place] [address] Result Comment: Slig ht Hemolysis, Result may be affected. Performed By: #### 2 4321-2 #### [facility] CLIA [id number] [address] [place] [address] [place] CBC panel Auto (Bld)on 04-05 Erythrocyte distribution width (RBC) [Ratio] 12.9 % Normal 11.5-15.0 [facility] Comment on above: Order Comment: Nuhai carlie Type: BLOOD SPECIMEN Ordering Facility: [facility] Address: [address] [place] [address] Performed By: #### 5 8410-2 #### [facility] CLIA [id number] [address] [place] [address] [place] Hematocrit (Bld) [Volume fraction] 35.7 % Low 39.0-51.0 [facility] Comment on above: Order Comment: Speci men Type: BLOOD SPECIMEN Ordering Facility: [facility] Address: [address] [place] [address] Performed By: #### 5 8410-2 #### [facility] CLIA [id number] [address] [place] [address] [place] Hemoglobin (Bld) [Mass/Vol] 11.9 g/dL Low 13.0-17. 0 [facility] Comment on above: Order Comment: Speci men Type: BLOOD SPECIMEN Ordering Facility: [facility] Address: [address] [place] [address] Performed By: #### 5 8410-2 #### [facility] CLIA [id number] [address] [place] [address] [place] MCH (RBC) [Entitic mass] 28.4 pg Normal 26.0-34.0 [facility] Comment on above: Order Comment: Speci men Type: BLOOD SPECIMEN Ordering Facility: [facility] Address: [address] [place] [address] Performed By: #### 5 8410-2 #### [facility] CLIA [id number] [address] [place] [address] [place] MCHC (RBC) [Mass/Vol] 33.3 g/dL Normal 30.5-36.0 [facility] Comment on above: Order Comment: Speci men Type: BLOOD SPECIMEN Ordering Facility: [facility] Address: [address] [place] [address] Performed By: #### 5 8410-2 #### [facility] CLIA [id number] [address] [place] [address] [place] MCV (RBC) [Entitic vol] 85.2 fL Normal 80.0-100.0 [facility] Comment on above: Order Comment: Speci men Type: BLOOD SPECIMEN Ordering Facility: [facility] Address: [address] [place] [address] Performed By: #### 5 8410-2 #### [facility] CLIA [id number] [address] [place] [address] [place] Nucleated RBC (Bld) [#/Vol] 10*3/uL Normal <0.01 [facility] Comment on above: Order Comment: Speci men Type: BLOOD SPECIMEN Ordering Facility: [facility] Address: [address] [place], [place] [address] Performed By: #### 5 8410-2 #### [facility] CLIA [id number] [address] [place] [address] [place] Platelet mean volume (Bld) [Entitic vol] 8.9 fL Low 9.0-12.7 [facility] Comment on above: Order Comment: Speci men Type: BLOOD SPECIMEN Ordering Facility: [facility] Address: [address] [place] [phone] Performed By: #### 5 8410-2 #### [facility] CLIA [id number] [address] [place] [address] [place] Platelets (Bld) [#/Vol] 232 10*3/uL Normal 150-400 [facility] Comment on above: Order Comment: Speci men Type: BLOOD SPECIMEN Ordering Facility: [facility] Address: [address] [place] [address] Performed By: #### 5 8410-2 #### [facility] CLIA [id number] [address] [place] [address] [place] RBC (Bld) [#/Vol] 4.19 10*6/uL Low 4.20-6.00 [facility] Comment on above: Order Comment: Speci men Type: BLOOD SPECIMEN Ordering Facility: [facility] Address: [address] [place] [phone] Performed By: #### 5 8410-2 #### [facility] CLIA [id number] [address] [place] [address] [place] WBC (Bld) [#/Vol] 6.41 10*3/uL Normal 3.70-11.00 [facility] Comment on above: Order Comment: Speci men Type: BLOOD SPECIMEN Ordering Facility: [facility] Address: [address] [place] [address] Performed By: #### 5 8410-2 #### [facility] CLIA [id number] [address] [place] [address] [place] CT BRAIN WO IVCONon 04-05-[address] BRAIN WO IVCON * * *Final Report* * * DATE OF EXAM: Apr 05 2022 2:00PM [facility] 0504 - CT BRAIN WO IVCON [...] base and imaged soft tissues are unremarkable. Clinical Cytogeneticist (topogram) images: No acute findings IMPRESSION: No significant change. No acute intracranial process Letter Sorting Machine Operator: PSCB Transcribe Date/Time: Apr 05 2022 2:06P Dictated by : CEDRIC MARCUS MD This examination was interpreted and the report reviewed and electronically signed by: CEDRIC MARCUS MD on Apr 05 2022 2:08PM EST [id number] [facility] ECG COMPLETEon 04-05-2022 ECG COMPLETE Ventricular Rate : 9 2 BPM Atrial Rate : 92 BPM P-R Interval : 166 ms QRS Duration : 92 ms Q-T Interval : 354 ms QTC Calculation(Bazett) : 437 ms Calculated P [place] : 49 degrees Calculated R [place] : 22 degrees Calculated T [place] : 12 degrees Normal sinus rhythm Normal ECG No previous ECGs available Confirmed by JASMIN ZUÑIGA MD ([id number]) on 04/05/2022 3:27:39 PM NAME : MICHAEL BATES PID : [id number] : 1955 Gender : Male Race : ORD : [id number] Procedure Date : Apr 05 2022 13:12:29 Edit Date : Apr 05 2022 15:27:40 Diagnosis: Normal sinus rhythm Normal ECG No previous ECGs available Confirmed by JASMIN ZUÑIGA MD ([id number]) on 04/05/2022 3:27:39 PM Test Reason : STAT Location : 0 : ED 33 Overread By : JASMIN ZUÑIGA MD Edited By : JASMIN ZUÑIGA MD Referred By : , Acquired by : THEODORE [facility] ED NOTEon 04-05-2022 ED NOTE HNO ID: [id number] Author: Jeannette Merchant RN Service: ? Author Type: Registered Nurse Type: ED Notes Filed: 04/05/2022 3:28 PM Note Text: Pt DC at this time with family. All papers reviewed. All questions answered. [facility] ED NOTE HNO ID: [id number] Author: Renan Martinez RN Service: ? Author Type: Registered Nurse Type: ED Notes Filed: 04/05/2022 1:07 PM Note Text: Pt reportedly had an acute onset of tremors while in the hospital. Pt was made an Emergency on the grounds and brought to the ed with family. [facility] ED PROV NOTEon 04-05-2022 ED PROV NOTE HNO ID: [id number] Author: Reji Rudd MD Service: Emergency Medicine Author Type: Physician Type: ED Provider Notes Filed: 04/05/2022 2:46 PM Note Text: ED Provider Note Patient Name: Michael Bates : 1955 SERVICE DATE: 04/05/22 History Patient presents with: Tremor Patient presents with tremor. It started about 2 hours ago. He is here visiting his son who got extubated today after open heart surgery. He started to feel very lightheaded. He sat down and started to have a tremor. He has had this once before. But it did not last quite as long. He ended up having a work-up including CT and MRI that was unremarkable. He is waiting to see neurology next month. He states he feels tremulous in his arms and legs and feels like his head is shaking. He feels somewhat lightheaded. Denies chest pain. States he did start having a headache. Denies nausea or vomiting. Denies vision changes. Denies numbness tingling or weakness. He did not fall or experience trauma. PAST MEDICAL HISTORY Diagnosis Date - Acute right-sided low back pain with right-sided sciatica 07/09/2016 - Adhesive capsulitis of shoulder 12/04/2007 - Adjustment disorder with depressed mood 10/16/2006 - Anemia of chronic disease 02/14/2021 - Benign non-nodular prostatic hyperplasia without lower urinary tract symptoms 10/03/2016 - Bilateral chronic knee pain 10/10/2016 - Bilateral occipital neuralgia 08/04/2015 - Carotid stenosis, asymptomatic, bilateral 08/09/2015 US 08/2015: bilateral 20-40%, US 06/2017 Rt; 40-60% and Lt 60-80% monitored by cardio - Cervical spondylosis 01/20/2012 - Cervicalgia 10/16/2006 - Cervicogenic headache 10/16/2015 - Chronic post-traumatic headache 08/04/[address] Duque - Chronic sinusitis - Claudication (HCC) 06/04/2017 PVR's normal. - Coronary atherosclerosis due to lipid rich plaque 01/20/[address] Kern. s/p RODDY to Ramus and RODDY to LAD placed 01/20/2017. - COVID-19 virus infection 06/18/202106/2021 - DDD (degenerative disc disease), cervical 01/20/2012 - DDD (degenerative disc disease), lumbar 06/30/2016 Multi level, worse L2-L3 - Diabetes (HCC) - Diabetic eye exam (HCC) 03/19/2017 Last done: 10/01/2018 - Elevated LFTs 08/05/2015 - Essential hypertension, benign - GERD without esophagitis 06/12/2018 - History of COVID-19 06/18/202106/2021 - Leg pain, bilateral 06/04/2017 - Lumbago 02/09/2010 * Dealing with on his own as of 08/2011 -- had a bad experience with a spine surgeon, nearly did surgery based on the wrong x-rays * Dates back to an injury while lifting 55 lbs - Lumbar radiculopathy - Migraine variant 07/22/2006 Since head injury around 1995 - Mixed hyperlipidemia 08/04/2015 - Neck pain, chronic 10/16/2015 - Neuropathy 06/12/2018 - Primary insomnia 03/02/2019 - Radicular pain of right lower extremity 07/09/2016 - S/P drug eluting coronary stent placement 01/20/201712/2016: 2 stents: Ramus of Circ and LAD - S/P drug eluting coronary stent placement 01/20/201712/2016: 2 stents: Ramus of Circ and LAD, 05/10/20 RODDY to pLCx - Sciatica 02/09/2010 - Seborrheic dermatitis 08/04/2015 - 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 - Ulnar artery aneurysm (HCC) Right, s/p repair - Unspecified pruritic disorder 03/02/2009 PAST SURGICAL HISTORY Procedure Laterality Date - 2D ECHO (EXEP) 01/16/2017 EF=60%, 1+ MD and TI - CATARACT EXTRACTION HX Left 10/2019 - CC CORONARY STENT 05/10/2020 RODDY to pLCx - CC CORONARY STENT 12/2016 Ramus of Circ and LAD - CC CORONARY STENT 11/20/2020 RODDY to pLCx and PTCA to OM2 - CC CORONARY STENT 07/23/2021 PCI to prox Lt Circ in-stent restenosis then placement of RODDY - FECAL OCCULT BLOOD TEST 04/19/2019 Negative - PAST SURGICAL HISTORY OF 1971 appendix - PAST SURGICAL HISTORY OF right foot -- tendon surgery - PAST SURGICAL HISTORY OF 1999 +/- Right hand -- trauma, aneurysm repair/CTS release -- Dr. Llanes - PAST SURGICAL HISTORY OF 2008 torn cartilage -- arthroscopy, left knee - PAST SURGICAL HISTORY OF 2017 right hand ulnar artery aneurism repair. - STRESS TEST 07/01/2018 negative - STRESS TEST NUCLEAR 07/2019 negative FAMILY HISTORY Problem Relation Age of Onset - Lung Cancer Mother lung - Coronary Artery Disease Sister former smoker - Stroke Sister - other (neurofibromatosis) Son from mother Social History Tobacco Use - Smoking status: Never Smoker - Smokeless tobacco: Former User Types: Chew - Tobacco comment: 1 can of chewing tobacco every 3 days PT QUIT 2014 Vaping Use - Vaping Use: Never used Substance and Sexual Activity - Alcohol use: No - Drug use: No - Sexual activity: Yes Partners: Female ALLERGIES Allergen Reactions - Perfumes Other: See Comments sneezing Review of Systems All other systems reviewed and are negative. Physical Exam Vitals [04/05/22 1305] BP Puls (more content not included)... Normal [facility] TROPONIN I HIGH SENSITIVITYo n 04-05-2022 Tropinin I.cardiac panel High sensitivity method <2.5 Normal 0.0-54.0 [facility] Comment on above: Order Comment: Speci men Type: BLOOD SPECIMEN Ordering Facility: [facility] Address: [address] [place], [place] [phone] Result Comment: This assay uses different antibodies than our current assay, and assays, even by the same steam shovel operating engineer may recognize different regions of the antibody and cannot be used interchangeably. Expect results of this assay to run higher than the previous assay. Performed By: #### H STROP #### [facility] CLIA [id number] [facility] [place] [address] [place] Absolute lymphocyte counton 03-22-2022 Lymphocytes Auto (Unsp spec) [#/Vol] 1.34 10*3/uL 0.83-4.51 [facility] Work Phone: Basophil percentageon 2021 Basophil percentage 0-5 SEEN /hpf 0-[address] [facility] Work Phone: Basophils/100 WBC (Bld) 0.9 % 0-1 [facility] Work Phone: Chloride [Moles/Vol] 101 mmol/L 98-107 [facility] Work Phone: Eosinophils/100 WBC (Bld) 5.0 % 0-5 [facility] Work Phone: [phone] Glucose [Mass/Vol] 163 mg/dL 74-106 [facility] Work Phone: [phone] Comment on above: Fasting Glucose resu lt greater than or equal to 126 mg/dL suggests DIABETES MELLITUS per A.D.A. criteria. Neutrophils (Bld) [#/Vol] 4.5 10*3/uL 2.0-7.7 [facility] Work Phone: Neutrophils/100 WBC (Bld) 65.3 % 47-70 [facility] Work Phone: Potassium [Moles/Vol] 4.7 mmol/L 3.5-5.1 [facility] Work Phone: Sodium [Moles/Vol] 134 mmol/L 136-145 [facility] Work Phone: WBC (Bld) [#/Vol] 6.9 10*3/uL 4.4-11.0 [facility] Work Phone: [phone] Bilirubin Test strip Ql (U)o n 03-22-2022 Bilirubin Ql (U) Negative Negative [facility] Work Phone: [phone] Blood erythrocytes count (nu mber/volume)on 03-22-2022 RBC (Bld) [#/Vol] 4.04 10*6/uL 4.6-6.2 [facility] Work Phone: [phone] Blood hemoglobin measurement (mass/volume)on 03-22-2022 Hemoglobin (Bld) [Mass/Vol] 11.6 g/dL 13.0-16. 5 [facility] Work Phone: Blood lymphocytes/100 leukoc yteson 03-22-2022 Lymphocytes/100 WBC (Bld) 19.5 % 19-41 [facility] Work Phone: Blood monocytes/100 leukocyt eson 03-22-2022 Monocytes/100 WBC (Bld) 8.7 % 0-10 [facility] Work Phone: Blood platelet mean volumeon 03-22-2022 Platelet mean volume (Bld) [Entitic vol] 9.7 fL 6.2-12.0 [facility] Work Phone: [phone] Determination of erythrocyte mean corpuscular volume (MCV)on 03-22-2022 MCV (RBC) [Entitic vol] 86.1 fL 80-94 [facility] Work Phone: [phone] Hematocrit Auto (Bld) [Volum e fraction]on 03-22-2022 Hematocrit (Bld) [Volume fraction] 34.8 % 40-54 [facility] Work Phone: [phone] Ketones Test strip Ql (U)on 03-22-2022 Ketones Ql (U) Negative Negative [facility] Work Phone: Laboratory - Chemistry and C hemistry - challengeon 03-22-2022 CO2 [Moles/Vol] 25.0 mmol/L 21.0-32.0 [facility] Work Phone: [phone] Magnesium [Mass/Vol] 1.8 mg/dL 1.6-2.6 [facility] Work Phone: [phone] Urea nitrogen/Creatinine [Mass ratio] 15.8 mg/mg 10-20 [facility] Work Phone: [phone] Laboratory - Hematology and Cell countson 03-22-2022 Erythrocyte distribution width (RBC) [Entitic vol] 38.9 fL 35.1-43.9 [facility] Work Phone: [phone] Erythrocyte distribution width (RBC) [Ratio] 12.5 % 11.6-14.6 [facility] Work Phone: [phone] Immature granulocytes/100 WBC (Bld) 0.600 % 0.0-0.9 [facility] Work Phone: [phone] Comment on above: IG% - Immature Granu locytes (promyelocytes, myelocytes and metamyelocytes) > 1% indicates that a LEFT SHIFT is Present. MCH (RBC) [Entitic mass] 28.7 pg 27.0-32.0 [facility] Work Phone: [phone] Nucleated RBC/100 WBC (Bld) [Ratio] 0 % 0-5 [facility] Work Phone: MCHC Auto (RBC) [Mass/Vol]on 03-22-2022 MCHC (RBC) [Mass/Vol] 33.3 g/dL 32-36 [facility] Work Phone: Mucus LM Ql (Urine sed)on Mucus Ql (Urine sed) 0 SEEN /hpf [facility] Work Phone: Nitrite Test strip Ql (U)on 03-22-2022 Nitrite Ql (U) Negative Negative [facility] Work Phone: No Panel Informationon 03-22 Estimated Creatinine Clearance Calc 63.15 ml/min [facility] Work Phone: Estimated GFR (MDRD) Amer 82 mL/min >60 [facility] Work Phone: Comment on above: GFR Calc Estimated GFR (MDRD) Non-Af Amer 68 mL/min >60 [facility] Work Phone: Comment on above: Non- GFR Calc Platelets bldon 03-22-2022 Platelets (Bld) [#/Vol] 223 10*3/uL 150-450 [facility] Work Phone: Protein Test strip Ql (U)on 03-22-2022 Protein Ql (U) Negative Negative [facility] Work Phone: Serum or plasma calcium jaziel urement (mass/volume)on 03-22-2022 Calcium [Mass/Vol] 8.7 mg/dL 8.5-10.1 [facility] Work Phone: Serum or plasma creatinine m easurement (mass/volume)on 03-22-2022 Creatinine [Mass/Vol] 1.14 mg/dL 0.70-1.30 [facility] Work Phone: Comment on above: The validity of the calculated GFR & GFRAA in patients over 70 years has not been determined. Clinical correlation is essential. Serum or plasma urea nitroge n measurement (mass/volume)on 03-22-2022 Urea nitrogen [Mass/Vol] 18 mg/dL 7-18 [facility] Work Phone: Squamous epithelial cells de tection in urine sediment by light microscopyon 03-22-2022 Epithelial cells.squamous LM Ql (Urine sed) 5-10 SEEN /hpf 0-5 [facility] Work Phone: Thin prep Papanicolaou smear with manual screeningon 03-22-2022 Thin prep Papanicolaou smear with manual screening 8 5-15 [facility] Work Phone: [phone] Urine blood detectionon 03-02 RBC Ql (U) Negative Negative [facility] Work Phone: [phone] RBC Ql (U) 0 SEEN /hpf 0-5 [facility] Work Phone: [phone] Urine clarityon 03-22-2022 Clarity (U) Sl. Cloudy Clear [facility] Work Phone: Urine color determinationon 03-22-2022 Color (U) Yellow Yellow [facility] Work Phone: [phone] Urine glucose detectionon Glucose Ql (U) 50 mg/dl Normal [facility] Work Phone: [phone] Urine leukocyte esterase det ection by dipstickon 03-22-2022 Leukocyte esterase Test strip Ql (U) 25 /ul Negative [facility] Work Phone: [phone] Urine pHon 03-22-2022 pH (U) 6.0 [pH] 5.0 - 8.0 [facility] Work Phone: [phone] Urine sediment bacteria coun t by microscopy (number/high power field)on 03-22-2022 Bacteria LM.HPF (Urine sed) [#/Area] 0 /[HPF] None Seen [facility] Work Phone: Urine specific gravity measu rementon 03-22-2022 Specific gravity (U) [Rel density] 1.010 1.002-1.03 0 [facility] Work Phone: Urobilinogen Auto test strip Ql (U)on 03-22-2022 Urobilinogen Ql (U) Normal mg/dl Normal [facility] Work Phone: No Panel Informationon 03-19 [facility] Absolute lymphocyte counton 02-04-2022 Lymphocytes Auto (Unsp spec) [#/Vol] 1.27 10*3/uL 0.83-4.51 [facility] Work Phone: Basophil percentageon 2021 Basophils/100 WBC (Bld) 0.8 % 0-1 [facility] Work Phone: Chloride [Moles/Vol] 105 mmol/L 98-107 [facility] Work Phone: Eosinophils/100 WBC (Bld) 4.4 % 0-5 [facility] Work Phone: Glucose [Mass/Vol] 198 mg/dL 74-106 [facility] Work Phone: Comment on above: Fasting Glucose resu lt greater than or equal to 126 mg/dL suggests DIABETES MELLITUS per A.D.A. criteria. Neutrophils (Bld) [#/Vol] 2.9 10*3/uL 2.0-7.7 [facility] Work Phone: Neutrophils/100 WBC (Bld) 60.8 % 47-70 [facility] Work Phone: Potassium [Moles/Vol] 4.2 mmol/L 3.5-5.1 [facility] Work Phone: Sodium [Moles/Vol] 136 mmol/L 136-145 [facility] Work Phone: WBC (Bld) [#/Vol] 4.8 10*3/uL 4.4-11.0 [facility] Work Phone: Blood erythrocytes count (nu mber/volume)on 02-04-2022 RBC (Bld) [#/Vol] 3.98 10*6/uL 4.6-6.2 [facility] Work Phone: Blood hemoglobin measurement (mass/volume)on 02-04-2022 Hemoglobin (Bld) [Mass/Vol] 11.6 g/dL 13.0-16. 5 [facility] Work Phone: Blood lymphocytes/100 leukoc yteson 02-04-2022 Lymphocytes/100 WBC (Bld) 26.5 % 19-41 [facility] Work Phone: Blood monocytes/100 leukocyt eson 02-04-2022 Monocytes/100 WBC (Bld) 7.1 % 0-10 [facility] Work Phone: Blood platelet mean volumeon 02-04-2022 Platelet mean volume (Bld) [Entitic vol] 9.5 fL 6.2-12.0 [facility] Work Phone: [phone] Determination of erythrocyte mean corpuscular volume (MCV)on 02-04-2022 MCV (RBC) [Entitic vol] 90.7 fL 80-94 [facility] Work Phone: Hematocrit Auto (Bld) [Volum e fraction]on 02-04-2022 Hematocrit (Bld) [Volume fraction] 36.1 % 40-54 [facility] Work Phone: [phone] Laboratory - Chemistry and C hemistry - challengeon 02-04-2022 CO2 [Moles/Vol] 28.0 mmol/L 21.0-32.0 [facility] Work Phone: [phone] Urea nitrogen/Creatinine [Mass ratio] 21.5 mg/mg 10-20 [facility] Work Phone: [phone] Laboratory - Hematology and Cell countson 02-04-2022 Erythrocyte distribution width (RBC) [Entitic vol] 40.2 fL 35.1-43.9 [facility] Work Phone: [phone] Erythrocyte distribution width (RBC) [Ratio] 12.1 % 11.6-14.6 [facility] Work Phone: Immature granulocytes/100 WBC (Bld) 0.400 % 0.0-0.9 [facility] Work Phone: [phone] Comment on above: IG% - Immature Granu locytes (promyelocytes, myelocytes and metamyelocytes) > 1% indicates that a LEFT SHIFT is Present. MCH (RBC) [Entitic mass] 29.1 pg 27.0-32.0 [facility] Work Phone: Nucleated RBC/100 WBC (Bld) [Ratio] 0 % 0-5 [facility] Work Phone: MCHC Auto (RBC) [Mass/Vol]on 02-04-2022 MCHC (RBC) [Mass/Vol] 32.1 g/dL 32-36 [facility] Work Phone: No Panel Informationon 02-04 Estimated GFR (MDRD) Amer 110 mL/min >60 [facility] Work Phone: Comment on above: GFR Calc Estimated GFR (MDRD) Non-Af Amer 91 mL/min >60 [facility] Work Phone: Comment on above: Non- GFR Calc Platelets bldon 02-04-2022 Platelets (Bld) [#/Vol] 186 10*3/uL 150-450 [facility] Work Phone: Serum or plasma calcium jaziel urement (mass/volume)on 02-04-2022 Calcium [Mass/Vol] 8.6 mg/dL 8.5-10.1 [facility] Work Phone: Serum or plasma creatinine m easurement (mass/volume)on 02-04-2022 Creatinine [Mass/Vol] 0.88 mg/dL 0.70-1.30 [facility] Work Phone: Comment on above: The validity of the calculated GFR & GFRAA in patients over 70 years has not been determined. Clinical correlation is essential. Serum or plasma urea nitroge n measurement (mass/volume)on 02-04-2022 Urea nitrogen [Mass/Vol] 19 mg/dL 7-18 [facility] Work Phone: Thin prep Papanicolaou smear with manual screeningon 02-04-2022 Thin prep Papanicolaou smear with manual screening 3 5-15 [facility] Work Phone: Free thyroxine indexon 12-18 Free T4 index Calc [Mass/Vol] 2.8 1.4-4.5 [facility] Work Phone: Laboratory - Chemistry and C hemistry - challengeon 12-18-2021 T4 [Mass/Vol] 8.2 ug/dL 4.5-12.1 [facility] Work Phone: No Panel Informationon 12-18 Thyroid Stimulating Hormone (TSH) 2.72 uIU/mL 0.358-3.74 [facility] Work Phone: T3 uptakeon 12-18-2021 T3RU 34 % 33-40 [facility] Work Phone: CNPNon 11-22-2021 CNPN Telephone ([facility]) MICHAEL BATES ([id number]) 1955 M Date Time Provider Department 11/22/21 NADIR GRADY During your visit today, we recorded the following information about you: Nadir Grady MD 11/22/2021 9:52 AM Signed Let patient know urine and blood protein studies were normal. Bleeding studies were normal. BMP was ok except for elevated blood sugar. Paula Donaldson LPN 11/22/2021 10:48 AM Signed Patient notified of results, verbalizes understanding of instructions. Paula Donaldson LPN Allergies As of Date: 11/22/2021 Noted Allergy Reaction PERFUMES 01/20/2012 14 - Other: See Comments Comments: sneezing Date Reviewed: 11/08/2021 Reviewed by: Nadir Grady MD - Fully Assessed Reason for Visit: Results [95] Prescriptions as of 12/03/2021 - gabapentin (NEURONTIN) 800 mg tablet Take 1 tablet by mouth twice daily for 90 days. - Amitriptyline HCl 150 mg tablet Take 1 tablet by mouth daily at bedtime. - Amitriptyline HCl 150 mg tablet Take 1 tablet by mouth daily at bedtime. - atorvastatin (LIPITOR) 80 mg tablet Take 1 tablet by mouth once daily. Managed by cardiology, Dr. Kern - carvedilol (COREG) 3.125 mg tablet Take 1 tablet by mouth twice daily. - clopidogrel (PLAVIX) 75 mg tablet Take 1 tablet by mouth once daily. Managed by [facility] - omega-3 fatty acids 1,000 mg cap Take 2 capsules by mouth once daily. - aspirin, enteric coated (ECOTRIN LOW STRENGTH) 81 mg EC tablet Take 1 tablet by mouth once daily. - metFORMIN ER (GLUCOPHAGE XR) 500 mg 24 hr tablet Take 2 tablets by mouth twice daily. - diphenhydrAMINE (BENADRYL) 25 mg capsule Take 1 capsule by mouth every 6 hours as needed. - fluticasone (FLONASE) 50 mcg/actuation nasal spray Use 2 Sprays in each nostril once daily. Rinse mouth after use. - nitroglycerin sublingual (NITROSTAT) 0.4 mg SL tablet Dissolve 1 tablet under the tongue every 5 minutes as needed for chest pain. - blood sugar diagnostic (BLOOD GLUCOSE TEST) test strip Test blood sugar(s) 2 times daily. Dx: Type 2 DM - Uncontrolled E11.65 Insulin: No - Blood Pressure Monitor kit 1 Each once daily. - Blood Glucose Control High and Low (ACCU-CHEK [place]GHANA CONTROL SOLN) soln Use as directed as indicated to check quality of test strips - Blood-Glucose Meter monitoring kit Glucose Meter of Choice - Kit - Dx: Type 2 DM - Uncontrolled E11.65 - Lancets lancets Test blood sugar(s) 2 times daily. 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] 12/04/2007 Unspecified pruritic disorder [L29.9] 03/02/2009 04/12/2020 Lumbago [M54.50] 02/09/2010 Sciatica [M54.30] 02/09/2010 Neck sprain and strain [S13.9XXA] 07/30/2010 08/30/2010 Other physical therapy [CUW8409] 08/16/2010 08/30/2010 Essential hypertension, benign [I10] 01/17/2012 DDD (degenerative disc disease), cervical [M50.*01/20/2012 Cervical spondylosis [M47.812] 01/20/2012 Chronic sinusitis [J32.9] Hyperlipidemia [E78.5] 08/04/2015 Mixed hyperlipidemia [E78.2] 08/04/2015 Lumbar radiculopathy [M54.16] Chronic post-traumatic headache [G44.329] 08/04/2015 Bilateral occipital neuralgia [M54.81] 08/04/2015 Seborrheic dermatitis [L21.9] 08/04/2015 Elevated LFTs [R79.89] 08/05/2015 Carotid stenosis, asymptomatic, bilateral [I65.*08/09/2015 Neck pain, chronic [M54.2, G89.29] 10/16/2015 Cervicogenic headache [G44.86] 10/16/2015 DDD (degenerative disc disease), lumbar [M51.36]06/30/2016 Radicular pain of right lower extremity [M54.10]07/09/2016 Acute right-sided low back pain with right-side*07/09/2016 Well adult exam [Z00.00] 10/03/2016 04/12/2020 Benign non-nodular prostatic hyperplasia withou*10/03/2016 Disorder of prostate [N42.9] 10/03/2016 Type 2 diabetes mellitus with diabetic neuropat*10/07/2016 Bilateral chronic knee pain [M25.561, M25.562, *10/10/2016 Coronary atherosclerosis due to lipid rich plaq*01/20/2017 S/P drug eluting coronary stent placement [Z95.*01/20/2017 Diabetic eye exam (HCC) [Z01.00, E11.9] 03/19/2017 Leg pain, bilateral [M79.604, M79.605] 06/04/2017 Medicare annual wellness visit, subsequent [Z00*06/12/2018 GERD without esophagitis [K21.9] 06/12/2018 Neuropathy (HCC) [G62.9] 06/12/2018 Primary insomnia [F51.01] 03/02/2019 Abnormal dreams [F51.8] 03/02/2019 Medication management [Z79.899] 03/02/2019 Illiteracy [Z55.0] 10/09/2020 Anemia of chronic disease [D63.8] 02/14/2021 History of COVID-19 [Z86.16] 06/18/2021 Encounter Status:Closed by NADIR GRADY on 12/03/21 Normal [facility] Absolute lymphocyte counton 11-02-2021 Lymphocytes Auto (Unsp spec) [#/Vol] 1.30 10*3/uL 0.83-4.51 [facility] Work Phone: Basophil percentageon 2021 Basophils/100 WBC (Bld) 0.8 % 0-1 [facility] Work Phone: Chloride [Moles/Vol] 105 mmol/L 98-107 [facility] Work Phone: Eosinophils/100 WBC (Bld) 3.4 % 0-5 [facility] Work Phone: Glucose [Mass/Vol] 119 mg/dL 74-106 [facility] Work Phone: Comment on above: Fasting Glucose resu lt from 100 to 125 mg/dL suggests IMPAIRED HOMEOSTASIS per A.D.A. criteria. Neutrophils (Bld) [#/Vol] 3.1 10*3/uL 2.0-7.7 [facility] Work Phone: Neutrophils/100 WBC (Bld) 61.5 % 47-70 [facility] Work Phone: Potassium [Moles/Vol] 4.3 mmol/L 3.5-5.1 [facility] Work Phone: Sodium [Moles/Vol] 137 mmol/L 136-145 [facility] Work Phone: WBC (Bld) [#/Vol] 5.1 10*3/uL 4.4-11.0 [facility] Work Phone: [phone] Basophil [facility] 0 [facility]: Bilirubin Test strip Ql (U)o n 11-02-2021 Bilirubin Ql (U) Negative Negative [facility] Work Phone: Blood erythrocytes count (nu mber/volume)on 11-02-2021 RBC (Bld) [#/Vol] 4.13 10*6/uL 4.6-6.2 [facility] Work [facility]: [phone] Blood hemoglobin measurement (mass/volume)on 11-02-2021 Hemoglobin (Bld) [Mass/Vol] 12.0 g/dL 13.0-16. 5 [facility] Work Phone: [phone] Blood lymphocytes/100 leukoc yteson 11-02-2021 Lymphocytes/100 WBC (Bld) 25.6 % 19-41 [facility] Work Phone: [phone] Blood monocytes/100 leukocyt eson 11-02-2021 Monocytes/100 WBC (Bld) 8.5 % 0-10 [facility] Work Phone: [phone] Blood platelet mean volumeon 11-02-2021 Platelet mean volume (Bld) [Entitic vol] 9.1 fL 6.2-12.0 [facility] Work Phone: Determination of erythrocyte mean corpuscular volume (MCV)on 11-02-2021 MCV (RBC) [Entitic vol] 86.2 fL 80-94 [facility] Work Phone: [phone] Hematocrit Auto (Bld) [Volum e fraction]on 11-02-2021 Hematocrit (Bld) [Volume fraction] 35.6 % 40-54 [facility] Work Phone: Ketones Test strip Ql (U)on 11-02-2021 Ketones Ql (U) Negative Negative [facility] Work Phone: Laboratory - Chemistry and C hemistry - challengeon 11-02-2021 CO2 [Moles/Vol] 26.0 mmol/L 21.0-32.0 [facility] Work Phone: Urea nitrogen/Creatinine [Mass ratio] 19.8 mg/mg 10-20 [facility] Work Phone: Laboratory - Hematology and Cell countson 11-02-2021 Erythrocyte distribution width (RBC) [Entitic vol] 39.7 fL 35.1-43.9 [facility] Work Phone: Erythrocyte distribution width (RBC) [Ratio] 12.6 % 11.6-14.6 [facility] Work Phone: Immature granulocytes/100 WBC (Bld) 0.200 % 0.0-0.9 [facility] Work Phone: Comment on above: IG% - Immature Granu locytes (promyelocytes, myelocytes and metamyelocytes) > 1% indicates that a LEFT SHIFT is Present. MCH (RBC) [Entitic mass] 29.1 pg 27.0-32.0 [facility] Work Phone: Nucleated RBC/100 WBC (Bld) [Ratio] 0 % 0-5 [facility] Work Phone: MCHC Auto (RBC) [Mass/Vol]on 11-02-2021 MCHC (RBC) [Mass/Vol] 33.7 g/dL 32-36 [facility] Work Phone: Mucus LM Ql (Urine sed)on Mucus Ql (Urine sed) 0 SEEN /hpf [facility] Work Phone: Nitrite Test strip Ql (U)on 11-02-2021 Nitrite Ql (U) Negative Negative [facility] Work Phone: No Panel Informationon 11-02 Estimated Creatinine Clearance Calc 84.88 ml/min [facility] Work Phone: Estimated GFR (MDRD) Amer 114 mL/min >60 [facility] Work Phone: Comment on above: GFR Calc Estimated GFR (MDRD) Non-Af Amer 94 mL/min >60 [facility] Work Phone: Comment on above: Non- GFR Calc Platelets bldon 11-02-2021 Platelets (Bld) [#/Vol] 170 10*3/uL 150-450 [facility] Work Phone: Protein Test strip Ql (U)on 11-02-2021 Protein Ql (U) Negative Negative [facility] Work Phone: Serum or plasma calcium jaziel urement (mass/volume)on 11-02-2021 Calcium [Mass/Vol] 9.2 mg/dL 8.5-10.1 oste r [facility] Work Phone: Serum or plasma creatinine m easurement (mass/volume)on 11-02-2021 Creatinine [Mass/Vol] 0.86 mg/dL 0.70-1.30 [facility] Work Phone: Comment on above: The validity of the calculated GFR & GFRAA in patients over 70 years has not been determined. Clinical correlation is essential. Serum or plasma urea nitroge n measurement (mass/volume)on 11-02-2021 Urea nitrogen [Mass/Vol] 17 mg/dL 7-18 [facility] Work Phone: Squamous epithelial cells de tection in urine sediment by light microscopyon 11-02-2021 Epithelial cells.squamous LM Ql (Urine sed) 0 SEEN /hpf [facility] Work Phone: Thin prep Papanicolaou smear with manual screeningon 11-02-2021 Thin prep Papanicolaou smear with manual screening 6 5-15 [facility] Work Phone: Urine blood detectionon 03-0 RBC Ql (U) Negative Negative [facility] Work Phone: RBC Ql (U) 0 SEEN /hpf [facility] Work Phone: Urine clarityon 11-02-2021 Clarity (U) Clear Clear [facility] Work Phone: Urine color determinationon 11-02-2021 Color (U) Yellow Yellow [facility] Work Phone: Urine glucose detectionon Glucose Ql (U) Normal mg/dl Normal [facility] Work Phone: Urine leukocyte esterase det ection by dipstickon 11-02-2021 Leukocyte esterase Test strip Ql (U) Negative Negative [facility] Work Phone: Urine pHon 11-02-2021 pH (U) 6.0 [pH] [facility] Work Phone: Urine sediment bacteria coun t by microscopy (number/high power field)on 11-02-2021 Bacteria LM.HPF (Urine sed) [#/Area] 0 /[HPF] None Seen [facility] Work Phone: Urine specific gravity measu rementon 11-02-2021 Specific gravity (U) [Rel density] 1.010 [facility] Work Phone: Urobilinogen Auto test strip Ql (U)on 11-02-2021 Urobilinogen Ql (U) Normal mg/dl Normal [facility] Work Phone: Basophil percentageon 2021 Bilirubin [Mass/Vol] 0.20 mg/dL 0.20-1.00 [facility] Work Phone: Comment on above: For patients on eltr ombopag therapy, use of Dimension [place] TBIL is not recommended. Cholesterol [Mass/Vol] 101 mg/dL <200 [facility] Work Phone: Comment on above: <200 mg/dL Desirable 200-240 mg/dL Borderline >240 mg/dL High Risk Protein [Mass/Vol] 7.5 g/dL 6.4-8.2 [facility] Work Phone: Triglyceride [Mass/Vol] 85 mg/dL [facility] Work Phone: Comment on above: The drugs N-Acetylcy steine and Metamizole may falsely depress this assay.Serum Triglycerides Reference Interval Normal <150 mg/dL Borderline high 150 - 199 mg/dL High 200 - 499 mg/dL Very High > or = 500 mg/dL Direct bilirubinon Bilirubin.direct [Mass/Vol] 0.09 mg/dL 0.00-0.3 0 [facility] Work Phone: Laboratory - Chemistry and C hemistry - challengeon 10-18-2021 ALP [Catalytic activity/Vol] 123 U/L 45-117 [facility] Work Phone: ALT [Catalytic activity/Vol] 26 U/L 16-61 [facility] Work Phone: Globulin (S) [Mass/Vol] 3.7 g/dL 2.2-4.2 [facility] Work Phone: Serum or plasma albumin jaziel urement (mass/volume)on 10-18-2021 Albumin [Mass/Vol] 3.8 g/dL 3.2-5.0 [facility] Work Phone: Serum or plasma cholesterol in HDL measurement (mass/volume)on 10-18-2021 Cholesterol in HDL [Mass/Vol] 42 mg/dL [facility] Work Phone: Comment on above: The drugs N-Acetylcy steine and Metamizole may falsely depress this assay. Reference Range HDL <40 mg/dL Low HDL Cholesterol HDL >or= 60 mg/dL High HDL Cholesterol Serum or plasma cholesterol in VLDL measurement (mass/volume)on 10-18-2021 Cholesterol in VLDL [Mass/Vol] 17 mg/dL 5-40 [facility] Work Phone: Serum or plasma low density lipoprotein (LDL) cholesterol measurement (mass/volume)on 10-18-2021 Cholesterol in LDL [Mass/Vol] 42 mg/dL 0-130 [facility] Work Phone: Thin prep Papanicolaou smear with manual screeningon 10-18-2021 Thin prep Papanicolaou smear with manual screening 19 U/L 15-37 [facility] Work Phone: Absolute lymphocyte counton 10-16-2021 Lymphocytes Auto (Unsp spec) [#/Vol] 1.24 10*3/uL 0.83-4.51 [facility] Work Phone: Basophil percentageon 2021 Basophils/100 WBC (Bld) 0.7 % 0-1 [facility] Work Phone: [phone] Bilirubin [Mass/Vol] 0.30 mg/dL 0.20-1.00 [facility] Work Phone: [phone] Comment on above: For patients on eltr ombopag therapy, use of Dimension [place] TBIL is not recommended. Chloride [Moles/Vol] 105 mmol/L 98-107 [facility] Work Phone: Eosinophils/100 WBC (Bld) 4.1 % 0-5 [facility] Work Phone: Glucose [Mass/Vol] 136 mg/dL 74-106 [facility] Work Phone: [phone] Comment on above: Fasting Glucose resu lt greater than or equal to 126 mg/dL suggests DIABETES MELLITUS per A.D.A. criteria. Neutrophils (Bld) [#/Vol] 3.4 10*3/uL 2.0-7.7 [facility] Work Phone: Neutrophils/100 WBC (Bld) 63.2 % 47-70 [facility] Work Phone: Potassium [Moles/Vol] 4.4 mmol/L 3.5-5.1 [facility] Work Phone: Protein [Mass/Vol] 7.7 g/dL 6.4-8.2 [facility] Work Phone: Sodium [Moles/Vol] 137 mmol/L 136-145 [facility] Work Phone: WBC (Bld) [#/Vol] 5.4 10*3/uL 4.4-11.0 [facility] Work Phone: Blood erythrocytes count (nu mber/volume)on 10-16-2021 RBC (Bld) [#/Vol] 4.11 10*6/uL 4.6-6.2 [facility] Work Phone: [phone] Blood hemoglobin measurement (mass/volume)on 10-16-2021 Hemoglobin (Bld) [Mass/Vol] 12.2 g/dL 13.0-16. 5 [facility] Work Phone: Blood lymphocytes/100 leukoc yteson 10-16-2021 Lymphocytes/100 WBC (Bld) 22.9 % 19-41 [facility] Work Phone: Blood monocytes/100 leukocyt eson 10-16-2021 Monocytes/100 WBC (Bld) 8.7 % 0-10 [facility] Work Phone: Blood platelet mean volumeon 10-16-2021 Platelet mean volume (Bld) [Entitic vol] 9.1 fL 6.2-12.0 [facility] Work Phone: Determination of erythrocyte mean corpuscular volume (MCV)on 10-16-2021 MCV (RBC) [Entitic vol] 87.3 fL 80-94 [facility] Work Phone: Hematocrit Auto (Bld) [Volum e fraction]on 10-16-2021 Hematocrit (Bld) [Volume fraction] 35.9 % 40-54 [facility] Work Phone: INR in Blood by Coagulation assayon 10-16-2021 INR Coag (Bld) [Relative time] 1.0 {INR} [facility] Work Phone: [phone] Laboratory - Chemistry and C hemistry - challengeon 10-16-2021 ALP [Catalytic activity/Vol] 140 U/L 45-117 [facility] Work Phone: ALT [Catalytic activity/Vol] 30 U/L 16-61 [facility] Work Phone: CO2 [Moles/Vol] 28.0 mmol/L 21.0-32.0 [facility] Work Phone: Globulin (S) [Mass/Vol] 3.9 g/dL 2.2-4.2 [facility] Work Phone: Urea nitrogen/Creatinine [Mass ratio] 37.7 mg/mg 10-20 [facility] Work Phone: Laboratory - Coagulationon 0 10-16-2021 aPTT Coag (Bld) [Time] 29.5 s 24.1-36.2 Wo jaimie [facility] Work Phone: PT Coag (PPP) [Time] 12.9 s 11.7-14.[address] [facility] Work Phone: Laboratory - Hematology and Cell countson 10-16-2021 Erythrocyte distribution width (RBC) [Entitic vol] 40.0 fL 35.1-43.9 oste r [facility] Work Phone: Erythrocyte distribution width (RBC) [Ratio] 12.5 % 11.6-14.6 [facility] Work Phone: Immature granulocytes/100 WBC (Bld) 0.400 % 0.0-0.9 [facility] Work Phone: Comment on above: IG% - Immature Granu locytes (promyelocytes, myelocytes and metamyelocytes) > 1% indicates that a LEFT SHIFT is Present. MCH (RBC) [Entitic mass] 29.7 pg 27.0-32.0 [facility] Work Phone: Nucleated RBC/100 WBC (Bld) [Ratio] 0 % 0-5 [facility] Work Phone: MCHC Auto (RBC) [Mass/Vol]on 10-16-2021 MCHC (RBC) [Mass/Vol] 34.0 g/dL 32-36 [facility] Work Phone: No Panel Informationon 10-16 Estimated Creatinine Clearance Calc 89.02 ml/min [facility] Work Phone: Estimated GFR (MDRD) Amer 120 mL/min >60 [facility] Work Phone: Comment on above: GFR Calc Estimated GFR (MDRD) Non-Af Amer 99 mL/min >60 [facility] Work Phone: Comment on above: Non- GFR Calc Troponin I High Sensitivity 5 pg/mL 3.0-78.0 [facility] Work Phone: Comment on above: Please Note: New [place] t Units and Gender Specific Reference Ranges. For more information see Policy Stat Procedure [place] High Sensitivity Troponin (TNIH) and attachments. SARS-CoV-2 Antigen (Rapid) [facility] Work Phone: Platelets bldon 10-16-2021 Platelets (Bld) [#/Vol] 182 10*3/uL 150-450 [facility] Work Phone: Serum or plasma albumin jaziel urement (mass/volume)on 10-16-2021 Albumin [Mass/Vol] 3.8 g/dL 3.2-5.0 [facility] Work Phone: Serum or plasma albumin/glob ulin mass ratioon 10-16-2021 Albumin/Globulin [Mass ratio] 1.0 {ratio} 0.9-2.4 [facility] Work Phone: Serum or plasma calcium jaziel urement (mass/volume)on 10-16-2021 Calcium [Mass/Vol] 8.9 mg/dL 8.5-10.1 [facility] Work Phone: Serum or plasma creatinine m easurement (mass/volume)on 10-16-2021 Creatinine [Mass/Vol] 0.82 mg/dL 0.70-1.30 [facility] Work Phone: Comment on above: The validity of the calculated GFR & GFRAA in patients over 70 years has not been determined. Clinical correlation is essential. Serum or plasma urea nitroge n measurement (mass/volume)on 10-16-2021 Urea nitrogen [Mass/Vol] 31 mg/dL 7-18 [facility] Work Phone: Thin prep Papanicolaou smear with manual screeningon 10-16-2021 Thin prep Papanicolaou smear with manual screening 17 U/L 15-37 [facility] Work Phone: Thin prep Papanicolaou smear with manual screening 4 5-15 [facility] Work Phone: XR Chest PA and Lateralon IMPRESSION: No acute radiographic abnormality. Letter Sorting Machine Operator: FAWN Transcribe Date/Time: Jun 27 2021 4:09P Dictated by : ANDI MEDLEY MD This examination was interpreted and the report reviewed and electronically signed by: ANDI MEDLEY MD on Jun 27 2021 4:10PM [facility] DIVISION OF RADIOLOGY * * *Final Report* * * DATE OF EXAM: Jun 27 2021 3:25PM WOX [id number] - XR CHEST 2V FRONTAL/LAT / PROCEDURE REASON: multiple diagnoses * * * * Physician Interpretation * * * * EXAMINATION: CHEST RADIOGRAPH (2 VIEW FRONTAL & LATERAL) CLINICAL HISTORY: SOB (shortness of breath) Chest pain, unspecified type MQ: [id number] EXAM DATE/TIME: 06/27/2021 3:25 PM COMPARISON: 09/08/2020; 04/07/2020 RESULT: Lines, tubes, and devices: None. Lungs and pleura: Shallow lung volumes. Scattered tiny reticulonodular opacities in the lungs, not significantly changed. No consolidation. No lung mass. No pleural effusion. No pneumothorax. Cardiomediastinal silhouette: Stable cardiomediastinal silhouette. Bones and soft tissues: Degenerative changes are present within the thoracic spine. DIVISION OF RADIOLOGY Provider, [facility] - 06/27/2021 * * *Final Report* * * DATE OF EXAM: Jun 27 2021 3:25PM WOX 5291 - XR CHEST 2V FRONTAL/LAT / PROCEDURE REASON: multiple diagnoses * * * * Physician Interpretation * * * * EXAMINATION: CHEST RADIOGRAPH (2 VIEW FRONTAL & LATERAL) CLINICAL HISTORY: SOB (shortness of breath) Chest pain, unspecified type MQ: XC2_6 EXAM DATE/TIME: 06/27/2021 3:25 PM COMPARISON: 09/08/2020; 04/07/2020 RESULT: Lines, tubes, and devices: None. Lungs and pleura: Shallow lung volumes. Scattered tiny reticulonodular opacities in the lungs, not significantly changed. No consolidation. No lung mass. No pleural effusion. No pneumothorax. Cardiomediastinal silhouette: Stable cardiomediastinal silhouette. Bones and soft tissues: Degenerative changes are present within the thoracic spine. IMPRESSION IMPRESSION: No acute radiographic abnormality. Letter Sorting Machine Operator: FAWN Transcribe Date/Time: Jun 27 2021 4:09P Dictated by : ANDI MEDLEY MD This examination was interpreted and the report reviewed and electronically signed by: ANDI MEDLEY MD on Jun 27 2021 4:10PM EST [facility] Radiology Study observation (narrative) [facility] XR Chest PA and LateralOrder ed By: Ccf Provider on 06-27-2021 [facility] XR Shoulder - right 2 Viewso n 10-09-2020 IMPRESSION: Degenerative changes of the RIGHT shoulder without acute osseous abnormality. Letter Sorting Machine Operator: PSCB Transcribe Date/Time: Oct 09 2020 12:07P Dictated by : NICOLA HOLMAN MD This examination was interpreted and the report reviewed and electronically signed by: NICOLA HOLMAN MD on Oct 09 2020 12:10PM [facility] DIVISION OF RADIOLOGY * * *Final Report* * * DATE OF EXAM: Oct 09 2020 10:31AM WOX 5255 - XR SHOULDER 2V AP/TRUE AP RT / PROCEDURE REASON: Acute pain of right shoulder * * * * Physician Interpretation * * * * EXAMINATION: XR SHOULDER 2V AP/TRUE AP RT CLINICAL HISTORY: pt states pain for a week anterior right shoulder area has been blacking out and fell. Acute pain of right shoulder Technique: XR SHOULDER 2V AP/TRUE AP RT -- RIGHT shoulder with 2 views on 2 images Comparison: 03/03/2017 RESULT: No acute fracture or dislocation. Mild degenerative changes are present at the RIGHT AC joint. There is also mild spurring at the subacromial interval. The glenohumeral joints is within normal limits. No focal soft tissue abnormality is appreciated. The included portions of the RIGHT lung are clear. DIVISION OF RADIOLOGY Provider, [facility] - 10/09/2020 * * *Final Report* * * DATE OF EXAM: Oct 09 2020 10:31AM WOX 5255 - XR SHOULDER 2V AP/TRUE AP RT / PROCEDURE REASON: Acute pain of right shoulder * * * * Physician Interpretation * * * * EXAMINATION: XR SHOULDER 2V AP/TRUE AP RT CLINICAL HISTORY: pt states pain for a week anterior right shoulder area has been blacking out and fell. Acute pain of right shoulder Technique: XR SHOULDER 2V AP/TRUE AP RT -- RIGHT shoulder with 2 views on 2 images Comparison: 03/03/2017 RESULT: No acute fracture or dislocation. Mild degenerative changes are present at the RIGHT AC joint. There is also mild spurring at the subacromial interval. The glenohumeral joints is within normal limits. No focal soft tissue abnormality is appreciated. The included portions of the RIGHT lung are clear. IMPRESSION IMPRESSION: Degenerative changes of the RIGHT shoulder without acute osseous abnormality. Letter Sorting Machine Operator: FAWN Transcribe Date/Time: Oct 09 2020 12:07P Dictated by : NICOLA HOLMAN MD This examination was interpreted and the report reviewed and electronically signed by: NICOLA HOLMAN MD on Oct 09 2020 12:10PM EST [facility] Radiology Study observation (narrative) [facility] XR Shoulder - right 2 ViewsO rdered By: Ccf Provider on 10-09-2020 [facility] XR Chest PA and Lateralon IMPRESSION: No definite acute radiographic abnormality. Letter Sorting Machine Operator: FAWN Transcribe Date/Time: Sep 08 2020 9:06A Dictated by : DASH VALDEZ DO This examination was interpreted and the report reviewed and electronically signed by: DASH VALDEZ DO on Sep 08 2020 9:11AM [facility] DIVISION OF RADIOLOGY * * *Final Report* * * DATE OF EXAM: Sep 08 2020 8:58AM WOX 5291 - XR CHEST 2V FRONTAL/LAT / PROCEDURE REASON: Rib pain on left side * * * * Physician Interpretation * * * * EXAMINATION: CHEST RADIOGRAPH (2 VIEW FRONTAL & LATERAL) PATIENT/TECHNOLOGIST PROVIDED HISTORY: pt states fell a couple of hours ago pain lower anterior left breast area CLINICAL INFORMATION: 65 years old Male with Rib pain on left side. Fell this morning. MQ: XC2_6 EXAM DATE/TIME: 09/08/2020 8:58 AM COMPARISON: Radiographs 04/08/2020, 04/07/2020 RESULT: Lines, tubes, and devices: None. Lungs and pleura: Upper extremities obscure part of the anterior thorax on the lateral view. Low lung volumes with mild bibasilar atelectasis. No definite consolidation. No pleural effusion or pneumothorax. Cardiomediastinal silhouette: Cardiomediastinal silhouette is accentuated secondary to low lung volumes and unchanged from the prior exam. Bones and soft tissues: No acute osseous findings within constraints of the exam. Endplate degenerative changes of the thoracic spine. DIVISION OF RADIOLOGY Provider, Michelle Sams - 09/08/2020 * * *Final Report* * * DATE OF EXAM: Sep 08 2020 8:58AM WOX 5291 - XR CHEST 2V FRONTAL/LAT / PROCEDURE REASON: Rib pain on left side * * * * Physician Interpretation * * * * EXAMINATION: CHEST RADIOGRAPH (2 VIEW FRONTAL & LATERAL) PATIENT/TECHNOLOGIST PROVIDED HISTORY: pt states fell a couple of hours ago pain lower anterior left breast area CLINICAL INFORMATION: 65 years old Male with Rib pain on left side. Fell this morning. MQ: XC2_6 EXAM DATE/TIME: 09/08/2020 8:58 AM COMPARISON: Radiographs 04/08/2020, 04/07/2020 RESULT: Lines, tubes, and devices: None. Lungs and pleura: Upper extremities obscure part of the anterior thorax on the lateral view. Low lung volumes with mild bibasilar atelectasis. No definite consolidation. No pleural effusion or pneumothorax. Cardiomediastinal silhouette: Cardiomediastinal silhouette is accentuated secondary to low lung volumes and unchanged from the prior exam. Bones and soft tissues: No acute osseous findings within constraints of the exam. Endplate degenerative changes of the thoracic spine. IMPRESSION IMPRESSION: No definite acute radiographic abnormality. Letter Sorting Machine Operator: PSCB Transcribe Date/Time: Sep 08 2020 9:06A Dictated by : DASH VALDEZ DO This examination was interpreted and the report reviewed and electronically signed by: DASH VALDEZ DO on Sep 08 2020 9:11AM EST [facility] Radiology Study observation (narrative) [facility] XR Chest PA and LateralOrder ed By: Ccf Provider on 09-08-2020 [facility] ANGIO/ARTHER-EXTREMITY UNILA TERAL [id number] 09-10-2017 ANGIO/ARTHER-EXTREMITY UNILATERAL [id number] Performed at [facility] APPROVED BY: Selene Wilburn MD EXAM TITLE: DIAGNOSTIC RIGHT UPPER EXTREMITY ARTERIOGRAM DATE: 09/10/2017 08:04 COMPARISON: None. CLINICAL INDICATION/HISTORY: The patient is a 62-year-old male with traumatic injury of the right wrist resulting in previous surgical repair of pseudoaneurysm in 1999. 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 The patient has 9 out of 10 pain in the right hand. 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 The patient is on Plavix that cannot be discontinued. The patient has discontinued his aspirin regimen. TECHNIQUE: Informed consent was obtained from the patient. The patient was evaluated for the safety and appropriateness of conscious sedation and the Moderate Sedation Record was completed. The patient was sedated with intravenous Fentanyl and Versed administered by the trained independent radiology nurse observer. The patient's vital signs were monitored during the procedure by the trained independent radiology nurse observer. Total intra-service work encounter time was approximately 0 hours and 45 minutes. The patient was placed in a supine position and the right groin was prepped and draped in a sterile fashion. All elements of maximal barrier technique including mask, sterile gown, sterile gloves, large sterile drape, appropriate hand hygiene, and appropriate prep agent were utilized. With ultrasound guidance a micropuncture needle was directed into the right common femoral artery and utilizing guidewire exchange and Seldinger technique a 5[place] sheath was placed. Ultrasound images were obtained of the needle within the artery. A digital subtraction arteriogram of the entrance site was obtained. A 4-[place] angled glide catheter was used to select the distal right brachial artery. Serial digital subtraction arteriograms were obtained from this point all the way down to the fingers utilizing several runs. The catheter was then pulled back and additional proximal runs back to the origin of the right brachiocephalic artery were made. A total of 53 cc of Visipaque was utilized for the entire study. 3 minutes and 30 seconds of fluoroscopy time were utilized during the study. There were no apparent complications. Following removal of the catheter and sheath a X-o seal closure device was used to achieve hemostasis at the right groin. The patient was discharged from the radiology special procedures suite and will be observed in the [facility]. The patient will return to the care of Dr. Armas. Fluoroscopy Radiation dose: Integrated dose-area product (DAP) for this visit = 202 mGy*cm. FINDINGS: Initial access of the sheath is in 2 the common femoral artery and there is no significant plaque burden in the vessel. The initial runs beginning from the brachial artery show normal brachial artery bifurcating into radial, ulnar, and then intraosseous vessels which appear normal. There was no evidence of any air bubbles introduced during this run. The next digital subtraction arteriogram reveals cutoff of the distal right ulnar artery 3 cm proximal to the ulna styloid. The right radial and interosseous artery are normal in appearance. There was no evidence of any air bubbles introduced during this run. Digital subtraction arteriogram of the wrist reveals some tortuosity and slight fusiform dilation of the radial artery just below the base of the first metacarpal overlying the radial border of the greater multangular. This vessel then feeds the palmar arch and first and second digits. There are irregular filling defects within the proximal digital branch of the second finger and within the arch which then attenuates into tiny vessels. A collateral vessel off the truncated ulnar artery feeds some proximal digital arteries of the fourth and fifth fingers and there is shared collateral flow to the third finger. There is then retrograde flow of a saccular elongated aneurysm that overlies the base of the fourth metacarpal. The next run detailed excellent vascular opacification of the first and second fingers and moderate opacification of the third finger with some interrupted interdigital arteries along the radial aspect of the third finger. There is truncation of digital vessels involving the fourth and fifth fingers. The 2 areas of aneurysm formation in the intraluminal filling defects are again identified. The next run demonstrated normal axillary and upper brachial artery on the right side. The last run demonstrated a normal right brachiocephalic trunk and subclavian carotid and vertebral and internal mammary artery with no evidence of any significant plaque burden or ulceration. IMPRESSION: The right upper extremity runoff is normal down to the distal forearm. There is cut off of the distal right ulnar artery with small collateral vessels supplying the hyperthenar region of the hand with opacification of an elongated oval aneurysm at the level of the base of the fourth metacarpal. There is a less prominent fusiform dilation of the distal right radial artery at the level of the base of the first metacarpal. There are filling defects in the vessels suggestive of emboli in these do not appear to be air bubbles. There is truncation of the digital vessels involving the fourth and fifth digits and a portion of the third digit as well as truncation of the palm are arch. No other significant vascular abnormalities are identified. Normal [facility] Protimeon 09-10-2017 INR Coag RelTime (PPP) 0.99 {INR} Normal [facility] Comment on above: Result Comment: Ramon fontained Therapy 2.0-3.0High Dose 2.5-3.5 Performed By: #### P T ####[facility] [place], [place] [address] Prothrombin time (PT) Coag time (PPP) 10.5 s Normal 9.3-11.9 [facility] Comment on above: Performed By: #### P T ####[address] [address] Lab Report: Lipid Profileon 02-08-2017 Cholesterol 132 mg/dL Invalid Interpretation Code 200 [employer] Work Phone: [phone] HDL Cholesterol 38 mg/dL Low [employer] Work Phone: [phone] LDL Cholesterol 70 mg/dL Invalid Interpretation Code 0-130 [employer] Work Phone: [phone] Triglyceride 120 mg/dL Invalid Interpretation Code [employer] Work Phone: [phone] very low density lipoproteins 24 mg/dL Invalid Interpretation Code 5-40 [employer] Work Phone: [phone] Lab Report: Liver Profileon 02-08-2017 Alanine aminotransferase (ALT) 30 U/L Invalid Interpretation Code 12-78 [employer] Work Phone: [phone] Albumin 4.0 g/dL Invalid Interpretation Code 3.4-5.0 [employer] Work Phone: [phone] Alkaline phosphatase (ALP) 107 U/L Inval id Interpretation Code 45-117 [employer] Work Phone: [phone] Aspartate aminotransferase (AST) 29 U/L Invalid Interpretation Code 15-37 [employer] Work Phone: [phone] Bilirubin (direct) 0.10 mg/dL Invalid Interpretation Code 0.00-0.30 [employer] Work Phone: [phone] Bilirubin (total) 0.40 mg/dL Invalid Interpretation Code 0.20-1.00 [employer] Work Phone: [phone] Globulin 4.0 g/dL High 2.3-3.5 [employer] Work Phone: [phone] Protein 8.0 g/dL Invalid Interpretation Code 6.4-8.2 [employer] Work Phone: [phone] Office Visiton 02-07-2017 Documentation of current medications (procedure) Done Invalid Interpretation Code [employer] Phone: [phone] Fall risk assessment No Invalid Interpretation Code [employer] Phone: [phone] Clinical Lists Update: Clini ada Noteon 01-16-2017 Left ventricular Ejection fraction 60 % Invalid Interpretation Code [employer] Work Phone: [phone] Lab Report: Basic Metabolic Profile (BMP)on 01-08-2017 Anion gap 8 mmol/L Invalid Interpretation Code 5-15 [facility] [employer] Work Phone: [phone] Anion gap molar conc 8 mmol/L 5-15 [facility] [employer] Work Phone: [phone] BUN/Creatinine Ratio 15.2 RATIO Invalid Interpretation Code 10-20 [employer] Work Phone: [phone] Calcium 8.8 mg/dL Invalid Interpretation Code 8.5-10.1 [employer] Work Phone: [phone] Chloride 103 mmol/L Invalid Interpretation Code 98-107 [employer] Work Phone: [phone] CO2 28.0 mmol/L Invalid Interpretation Code 21.0-32.0 [employer] Phone: [phone] CO2 ppres (BldV) 28.0 mmol/L 21.0-32.0 [employer] Work Phone: [phone] Creatinine 0.86 mg/dL Invalid Interpretation Code 0.70-1.30 [employer] Work Phone: [phone] eGFR (non-black) 96 mL/min/{1.73_m2} Invalid Interpretation Code >60 [employer] Work Phone: [phone] eGFR (non-black) 116 mL/min/{1.73_m2} Invalid Interpretation Code >60 [employer] Work Phone: [phone] EST GFR - AA 116 mL/min >60 [employer] Work Phone: Glucose 129 mg/dL High 70-110 [facility] Work Phone: [phone] Glucose mass conc 129 mg/dL High 70-110 [facility] Work Phone: [phone] Potassium 4.4 mmol/L Invalid Interpretation Code 3.5-5.1 [facility] Work Phone: [phone] Sodium 139 mmol/L Invalid Interpretation Code 136-145 [facility] Work Phone: [phone] Urea nitrogen 13 mg/dL Invalid Interpretation Code 7-18 [facility] Work Phone: [phone] Lab Report: CBC-Complete Blo od Cnt No Diffon 01-08-2017 Erythrocyte distribution width Ratio (RBC) 39.2 fL 35.1-43.9 [facility] [employer] Work Phone: [phone] Erythrocyte distribution width Ratio (RBC) 13.0 % 11.6-14.6 [facility] [employer] Work [phone] Erythrocytes (RBC) 4.75 10*6/uL Invalid Interpretation Code 4.6-6.2 [facility] Work Phone: [phone] Hematocrit (HCT) 39.8 % Low 40-54 [facility] Work Phone: [phone] Hematocrit Volume Fraction (Bld) 39.8 % Low 40-54 [facility] Work Phone: [phone] Hemoglobin (HGB) 13.6 g/dL Invalid Interpretation Code 13.0-16.5 [facility] Work Phone: [phone] MCH 28.6 pg Invalid Interpretation Code 27.0-32.0 [facility] Work Phone: [phone] MCH Entitic mass (RBC) 28.6 pg 27.0-32.0 [facility] Work Phone: [phone] MCHC 34.2 G/GL Invalid Interpretation Code 32-36 [facility] Work Phone: [phone] MCHC mass conc (RBC) 34.2 G/GL 32-[address] [facility] Work Phone: [phone] MCV 83.8 fL Invalid Interpretation Code 80-94 [facility] Work Phone: [phone] MCV Entitic volume (RBC) 83.8 fL 80-94 [facility] Work Phone: [phone] Platelet mean volume Entitic volume (Bld) 9.5 fL 6.2-12.0 [facility] Work Phone: [phone] Platelets 222 10*3/mm3 Invalid Interpretation Code 150-450 [facility] Work Phone: [phone] Platelets #/vol (Bld) 222 10*3/mm3 150-450 [facility] Work Phone: [phone] PMV by Yadira 9.5 fL Invalid Interpretation Code 6.2-12.0 [facility] Work Phone: [phone] RBC #/vol (Bld) 4.75 10*6/uL 4.6-6.2 [facility] Work Phone: [phone] RDW-CA 13.0 % Invalid Interpretation Code 11.6-14.6 [facility] [employer] Work Phone: [phone] red blood cell distribution width, size density 39.2 fL Invalid Interpretation Code 35.1-43.9 [facility] Work Phone: [phone] WBC #/vol (Bld) 6.7 10*3/uL 4.4-11.0 [facility] Work Phone: [phone] WBC (Leukocytes) 6.7 10*3/uL Invalid Interpretation Code 4.4-11.0 [facility] [employer] Work Phone: [phone] Lab Report: Prothrombin Time w/INRon 01-08-2017 Coagulation tissue factor induced in platelet poor plasma 12.3 s Invalid Interpretation Code 11.7-14.9 [facility] Work Phone: [phone] INR Coag RelTime (PPP) 1.0 {INR} [facility] Work Phone: [phone] INR in blood by coagulation 1.0 {INR} Inva lid Interpretation Code [facility] Work Phone: [phone] Office Visiton 01-08-2017 Documentation of current medications (procedure) Done Invalid Interpretation Code [facility] Work Phone: [phone] Fall risk assessment No [facility] Work Phone: [phone] Protein mass conc Done [facility] Work Phone: [phone] Tobacco smoking status NHIS Never smoker [facility] Work Phone: [phone] Tobacco use CPHS Never smoker Invalid Interpretation Code [facility] Work Phone: Replaced Document: Buzz GUO Observationson 01-08-2017 EKG QRS axis 26 deg [facility] Work Phone: electrocardiogram interpretation Sinus Rhythm WITHIN NORMAL LIMITS Invalid Interpretation Code [facility] Work Phone: [phone] GE use only - for [employer] import when terms are not otherwise specified 392 ms Invalid Interpretation Code [facility] Work Phone: [phone] Interpretation Sinus Rhythm WITHIN NORMAL LIMITS [facility] Work Phone: P [place] 33 deg [facility] Work Phone: P wave axis, electrocardiogram 33 deg Invalid Interpretation Code [facility] Work Phone: NV Interval 140 ms [facility] Work Phone: NV interval, electrocardiogram 140 ms Invalid Interpretation Code [facility] Work Phone: Pulse (Heart Rate) 81 /min Invalid Interpretation Code [facility] Work Phone: QRS axis, electrocardiogram 26 deg Inva lid Interpretation Code [facility] Work Phone: QRS Duration 94 ms [facility] Work Phone: QRS duration, electrocardiogram 94 ms Invalid Interpretation Code [facility] Work Phone: QT Interval new path ms [facility] Work Phone: QT interval, electrocardiogram new path ms Invalid Interpretation Code [facility] Work Phone: QTc [place] 392 ms [facility] Work Phone: T [place] -1 deg [facility] Work Phone: T wave axis, electrocardiogram -1 deg Invalid Interpretation Code [facility] Work Phone: [phone] Clinical Lists Update: Prelo commutator tester 10-04-2016 HbA1c 12.1 % Invalid Interpretation Code [facility] Work Phone: [phone] Clinical Lists Update: Prelo commutator tester 10-03-2016 Cholesterol 219 mg/dL [facility] Work Phone: [phone] HDL Cholesterol 141 mg/dL [facility] Work Phone: [phone] LDL Cholesterol 36 mg/dL [facility] Work Phone: [phone] Triglyceride 211 mg/dL [facility] Work Phone: [phone] Vital Signs Date Time Vital Sign Value Performing Clinician Facility 03-05-2025 15:00-0400 Diastolic blood pressure 72 mm[Hg] Dr. Nadir Grady MD Work Phone: [phone] [place] [address] 03-05-2025 15:00-0400 Heart rate 67 /min Dr. Nadir Grady MD Work Phone: [phone] [place] [address] 03-05-2025 15:00-0400 Respiratory rate 20 /min Dr. Nadir Grady MD Work Phone: [phone] [place] [address] 03-05-2025 15:00-0400 SaO2% (BldA) [Mass fraction] 97 % Dr. Nadir Grady MD Work Phone: [phone] [place] [address] 03-05-2025 15:00-0400 Systolic blood pressure 142 mm[Hg] Dr. Nadir Grady MD Work Phone: [phone] [place] [address] 03-05-2025 14:07-0400 Body temperature 98 [degF] Dr. Nadir Grady MD Work Phone: [phone] [place] [address] 03-05-2025 11:11-0400 Body height 177.[address] Nadir Grady MD Work Phone: [phone] [place] [address] 03-05-2025 11:11-0400 Body mass index (BMI) [Ratio] 24.5 kg/m2 Dr. Nadir Grady MD Work Phone: [phone] [place] [address] 03-05-2025 11:11-0400 Body weight 77.[address] Nadir Grady MD Work Phone: [phone] [place] [address] 02-22-2025 11:06-0400 Body height 177.[address] Nadir Grady MD Work Phone: [facility] 02-22-2025 11:06-0400 Body mass index (BMI) [Ratio] 24.3 kg/m2 Dr. Nadir Grady MD Work Phone: [facility] 02-22-2025 11:06-0400 Body weight 77.[address] Nadir Grady MD Work Phone: [facility] 02-22-2025 11:06-0400 Diastolic blood pressure 69 mm[Hg] Dr. Nadir Grady MD Work Phone: [facility] 02-22-2025 11:06-0400 Heart rate 72 /min Dr. Nadir Grady MD Work Phone: [facility] 02-22-2025 11:06-0400 Respiratory rate 16 /min Dr. Nadir Grady MD Work Phone: [facility] 02-22-2025 11:06-0400 Systolic blood pressure 125 mm[Hg] Dr. Nadir Grady MD Work Phone: [facility] 12-13-2024 09:48-0400 Body mass index (BMI) [Ratio] 25.82 kg/m2 Molly Shruti BRAILLE PROOFREADER.CERTIFIED ANESTHESIOLOGIST ASSISTANT Work Phone: [facility] 12-13-2024 09:48-0400 Body weight 78.83 kg Molly Shruti BRAILLE PROOFREADER.CERTIFIED ANESTHESIOLOGIST ASSISTANT Work Phone: [facility] 12-13-2024 09:48-0400 Diastolic blood pressure 80 mm[Hg] Molly Shruti BRAILLE PROOFREADER.CERTIFIED ANESTHESIOLOGIST ASSISTANT Work Phone: [facility] 12-13-2024 09:48-0400 Heart rate 74 /min Molly Shruti BRAILLE PROOFREADER.CERTIFIED ANESTHESIOLOGIST ASSISTANT Work Phone: [facility] 12-13-2024 09:48-0400 Respiratory rate 18 /min Molly Shruti BRAILLE PROOFREADER.CERTIFIED ANESTHESIOLOGIST ASSISTANT Work Phone: [facility] 12-13-2024 09:48-0400 SaO2% (BldA) [Mass fraction] 97 % Molly Shruti BRAILLE PROOFREADER.CERTIFIED ANESTHESIOLOGIST ASSISTANT Work Phone: [facility] 12-13-2024 09:48-0400 Systolic blood pressure 129 mm[Hg] Molly Shruti BRAILLE PROOFREADER.CERTIFIED ANESTHESIOLOGIST ASSISTANT Work Phone: [facility] 12-08-2024 08:17-0400 Body height 177.[address] Nadir Grady MD Work Phone: [facility] 12-08-2024 08:14-0400 Body mass index (BMI) [Ratio] 25 kg/m2 Dr. Naidr Grady MD Work Phone: [facility] 12-08-2024 08:14-0400 Body weight 78.[address] Nadir Grady MD Work Phone: [facility] 12-08-2024 08:14-0400 Diastolic blood pressure 66 mm[Hg] Dr. Nadir Grady MD Work Phone: [facility] 12-08-2024 08:14-0400 Heart rate 77 /min Dr. Nadir Grady MD Work Phone: [facility] 12-08-2024 08:14-0400 Respiratory rate 18 /min Dr. Nadir Grady MD Work Phone: [facility] 12-08-2024 08:14-0400 SaO2% (BldA) [Mass fraction] 96 % Dr. Nadir Grady MD Work Phone: [facility] 12-08-2024 08:14-0400 Systolic blood pressure 122 mm[Hg] Dr. Nadir Grady MD Work Phone: [facility] 10-22-2024 12:55-0500 Body mass index (BMI) [Ratio] 25.99 kg/m2 Molly Shruti BRAILLE PROOFREADER.CERTIFIED ANESTHESIOLOGIST ASSISTANT Work Phone: [facility] 10-22-2024 12:55-0500 Body weight 79.38 kg Molly Shruti BRAILLE PROOFREADER.CERTIFIED ANESTHESIOLOGIST ASSISTANT Work Phone: [facility] 10-22-2024 12:55-0500 Diastolic blood pressure 76 mm[Hg] Molly Shruti BRAILLE PROOFREADER.CERTIFIED ANESTHESIOLOGIST ASSISTANT Work Phone: [facility] 10-22-2024 12:55-0500 Heart rate 72 /min Molly Shruti BRAILLE PROOFREADER.CERTIFIED ANESTHESIOLOGIST ASSISTANT Work Phone: [facility] 10-22-2024 12:55-0500 Respiratory rate 18 /min Molly Shruit BRAILLE PROOFREADER.CERTIFIED ANESTHESIOLOGIST ASSISTANT Work Phone: [facility] 10-22-2024 12:55-0500 SaO2% (BldA) [Mass fraction] 97 % Molly Shruti BRAILLE PROOFREADER.CERTIFIED ANESTHESIOLOGIST ASSISTANT Work Phone: [facility] 10-22-2024 12:55-0500 Systolic blood pressure 131 mm[Hg] Molly Shruti BRAILLE PROOFREADER.CERTIFIED ANESTHESIOLOGIST ASSISTANT Work Phone: [facility] 10-07-2024 08:48-0500 Body mass index (BMI) [Ratio] 25.7 kg/m2 Martha Boston PA-C Work Phone: [facility] 10-07-2024 08:48-0500 Body temperature 98.49 [degF] Martha Boston PA-C Work Phone: [facility] 10-07-2024 08:48-0500 Body weight 78.47 kg Martha Boston PA-C Work Phone: [facility] 10-07-2024 08:48-0500 Diastolic blood pressure 70 mm[Hg] Martha Boston PA-C Work Phone: [facility] 10-07-2024 08:48-0500 Heart rate 83 /min Martha Boston PA-C Work Phone: [facility] 10-07-2024 08:48-0500 Respiratory rate 16 /min Martha Boston PA-C Work Phone: [facility] 10-07-2024 08:48-0500 SaO2% (BldA) [Mass fraction] 96 % Martha Boston PA-C Work Phone: 9(583)933-349929 [place] [address] 10-07-2024 08:48-0500 Systolic blood pressure 128 mm[Hg] Martha Boston PA-C Work Phone: 9(155)267-744900 [place] [address] 09-08-2024 12:53-0500 Body height 177.[address] Nadir Grady MD Work Phone: 4(978)397-106855 [place] [address] 09-08-2024 12:53-0500 Body mass index (BMI) [Ratio] 25.4 kg/m2 Dr. Nadir Grady MD Work Phone: 3(581)459-401655 [place] [address] 09-08-2024 12:53-0500 Body weight 80.[address] Nadir Grady MD Work Phone: 7(670)444-998455 [place] [address] 09-08-2024 12:53-0500 Diastolic blood pressure 57 mm[Hg] Dr. Nadir Grady MD Work Phone: 0(046)089-629555 [place] [address] 09-08-2024 12:53-0500 Heart rate 73 /min Dr. Nadir Grady MD Work Phone: 9(078)666-307755 [place] [address] 09-08-2024 12:53-0500 Respiratory rate 18 /min Dr. Nadir Grady MD Work Phone: 6(506)724-003255 [place] [address] 09-08-2024 12:53-0500 SaO2% (BldA) [Mass fraction] 94 % Dr. Nadir Grady MD Work Phone: 7(567)966-887055 [place] [address] 09-08-2024 12:53-0500 Systolic blood pressure 114 mm[Hg] Dr. Nadir Grady MD Work Phone: 0(171)159-017855 [place] [address] 09-06-2024 14:37-0500 Body mass index (BMI) [Ratio] 25.55 kg/m2 Nadir Grady MD Work Phone: 7(568)818-110429 [place] [address] 09-06-2024 14:37-0500 Body weight 78.02 kg Naidr Grady MD Work Phone: 4(143)794-667729 [place] [address] 09-06-2024 14:37-0500 Diastolic blood pressure 74 mm[Hg] Nadir Grady MD Work Phone: [facility] 09-06-2024 14:37-0500 Heart rate 72 /min Nadir Grady MD Work Phone: [facility] 09-06-2024 14:37-0500 Respiratory rate 18 /min Nadir Grady MD Work Phone: [facility] 09-06-2024 14:37-0500 Systolic blood pressure 128 mm[Hg] Nadir Grady MD Work Phone: 0(478)524-370129 [place] [address] 08-27-2024 14:00-0500 Body temperature 98.9 [degF] Dr. Nadir Grady MD Work Phone: 3(626)673-030490 [place] [address] 08-27-2024 14:00-0500 Diastolic blood pressure 66 mm[Hg] Dr. Nadir Grady MD Work Phone: 2(809)882-219690 [place] [address] 08-27-2024 14:00-0500 Heart rate 89 /min Dr. Nadir Grady MD Work Phone: 5(087)580-043055 [place] [address] 08-27-2024 14:00-0500 Respiratory rate 169 /min Dr. Nadir Grady MD Work Phone: 2(420)633-771155 [place] [address] 08-27-2024 14:00-0500 SaO2% (BldA) [Mass fraction] 98 % Dr. Nadir Grady MD Work Phone: 2(400)989-271490 [place] [address] 08-27-2024 14:00-0500 Systolic blood pressure 124 mm[Hg] Dr. Nadir Grady MD Work Phone: 1(059)852-240555 [place] [address] 08-27-2024 09:40-0500 Body mass index (BMI) [Ratio] 23.9 kg/m2 Dr. Nadir Grady MD Work Phone: 7(348)438-451990 [place] [address] 08-27-2024 09:40-0500 Body weight 75.[address] Nadir Grady MD Work Phone: 1(207)800-581455 [place] [address] 08-16-2024 07:04-0500 Body weight 81.[address] Nadir Grady MD Work Phone: [facility] 08-13-2024 09:58-0500 Body mass index (BMI) [Ratio] 25.7 kg/m2 Dr. Nadir Grady MD Work Phone: [facility] 08-12-2024 08:00-0500 Body mass index (BMI) [Ratio] 26.92 kg/m2 Bridget Moomaw BRAILLE PROOFREADER.CERTIFIED ANESTHESIOLOGIST ASSISTANT Work Phone: [facility] 08-12-2024 08:00-0500 Body temperature 97.2 [degF] Bridget Moomaw BRAILLE PROOFREADER.CERTIFIED ANESTHESIOLOGIST ASSISTANT Work Phone: [facility] 08-12-2024 08:00-0500 Body weight 82.2 kg Bridget Moomaw BRAILLE PROOFREADER.CERTIFIED ANESTHESIOLOGIST ASSISTANT Work Phone: [facility] 08-12-2024 08:00-0500 Diastolic blood pressure 74 mm[Hg] Bridget Moomaw BRAILLE PROOFREADER.CERTIFIED ANESTHESIOLOGIST ASSISTANT Work Phone: [facility] 08-12-2024 08:00-0500 Heart rate 70 /min Bridget Moomaw BRAILLE PROOFREADER.CERTIFIED ANESTHESIOLOGIST ASSISTANT Work Phone: [facility] 08-12-2024 08:00-0500 Respiratory rate 20 /min Bridget Moomaw BRAILLE PROOFREADER.CERTIFIED ANESTHESIOLOGIST ASSISTANT Work Phone: [facility] 08-12-2024 08:00-0500 SaO2% (BldA) [Mass fraction] 98 % Bridget Moomaw BRAILLE PROOFREADER.CERTIFIED ANESTHESIOLOGIST ASSISTANT Work Phone: [facility] 08-12-2024 08:00-0500 Systolic blood pressure 118 mm[Hg] Bridget Moomaw BRAILLE PROOFREADER.CERTIFIED ANESTHESIOLOGIST ASSISTANT Work Phone: [facility] 07-28-2024 08:11-0500 Body mass index (BMI) [Ratio] 25.7 kg/m2 Dr. Nadir Grady MD Work Phone: [facility] 07-28-2024 08:11-0500 Body weight 81.[address] Nadir Grady MD Work Phone: [facility] 07-28-2024 08:11-0500 Diastolic blood pressure 74 mm[Hg] Dr. Nadir Grady MD Work Phone: [facility] 07-28-2024 08:11-0500 Heart rate 72 /min Dr. Nadir Grady MD Work Phone: [facility] 07-28-2024 08:11-0500 Respiratory rate 18 /min Dr. Nadir Grady MD Work Phone: [facility] 07-28-2024 08:11-0500 SaO2% (BldA) [Mass fraction] 97 % Dr. Nadir Grady MD Work Phone: [facility] 07-28-2024 08:11-0500 Systolic blood pressure 126 mm[Hg] Dr. Nadir Grady MD Work Phone: [facility] 07-24-2024 09:20-0500 Body mass index (BMI) [Ratio] 26.82 kg/m2 Bridget Moomaw BRAILLE PROOFREADER.CERTIFIED ANESTHESIOLOGIST ASSISTANT Work Phone: [facility] 07-24-2024 09:20-0500 Body temperature 97.7 [degF] Bridget Moomaw BRAILLE PROOFREADER.CERTIFIED ANESTHESIOLOGIST ASSISTANT Work Phone: [facility] 07-24-2024 09:20-0500 Body weight 81.9 kg Bridget Moomaw BRAILLE PROOFREADER.CERTIFIED ANESTHESIOLOGIST ASSISTANT Work Phone: [facility] 07-24-2024 09:20-0500 Diastolic blood pressure 64 mm[Hg] Bridget Moomaw BRAILLE PROOFREADER.CERTIFIED ANESTHESIOLOGIST ASSISTANT Work Phone: [facility] 07-24-2024 09:20-0500 Heart rate 80 /min Bridget Moomaw BRAILLE PROOFREADER.CERTIFIED ANESTHESIOLOGIST ASSISTANT Work Phone: [facility] 07-24-2024 09:20-0500 Respiratory rate 16 /min Bridget Moomaw BRAILLE PROOFREADER.CERTIFIED ANESTHESIOLOGIST ASSISTANT Work Phone: [facility] 07-24-2024 09:20-0500 SaO2% (BldA) [Mass fraction] 96 % Bridget Moomaw BRAILLE PROOFREADER.CERTIFIED ANESTHESIOLOGIST ASSISTANT Work Phone: [facility] 07-24-2024 09:20-0500 Systolic blood pressure 124 mm[Hg] Bridget Joseph COLLETTE.CERTIFIED ANESTHESIOLOGIST ASSISTANT Work Phone: [facility] 07-20-2024 07:26-0500 Body height 174.7 cm Martha Boston PA-C Work Phone: [facility] 07-20-2024 07:26-0500 Body mass index (BMI) [Ratio] 25.4 kg/m2 Martha Boston PA-C Work Phone: [facility] 07-20-2024 07:26-0500 Body temperature 97.81 [degF] Martha Boston PA-C Work Phone: [facility] 07-20-2024 07:26-0500 Body weight 77.56 kg Martha Boston PA-C Work Phone: [facility] 07-20-2024 07:26-0500 Diastolic blood pressure 62 mm[Hg] Martha Boston PA-C Work Phone: [facility] 07-20-2024 07:26-0500 Heart rate 71 /min Martha Boston PA-C Work Phone: [facility] 07-20-2024 07:26-0500 Respiratory rate 16 /min Martha Boston PA-C Work Phone: [facility] 07-20-2024 07:26-0500 SaO2% (BldA) [Mass fraction] 97 % Martha Boston PA-C Work Phone: [facility] 07-20-2024 07:26-0500 Systolic blood pressure 132 mm[Hg] Martha Boston PA-C Work Phone: [facility] 12-30-2023 08:37-0400 Body height 177.[address] Nadir Grady Work Phone: [facility] 12-30-2023 08:37-0400 Body mass index (BMI) [Ratio] 26.8 kg/m2 Dr. Nadir Grady Work Phone: [facility] 12-30-2023 08:37-0400 Body weight 84.[address] Nadir Grady Work Phone: [facility] 12-30-2023 08:37-0400 Diastolic blood pressure 67 mm[Hg] Dr. Nadir Grady Work Phone: [facility] 12-30-2023 08:37-0400 Heart rate 74 /min Dr. Nadir Grady Work Phone: [facility] 12-30-2023 08:37-0400 Respiratory rate 18 /min Dr. Nadir Grady Work Phone: [facility] 12-30-2023 08:37-0400 SaO2% (BldA) [Mass fraction] 97 % Dr. Nadir Grady Work Phone: [facility] 12-30-2023 08:37-0400 Systolic blood pressure 129 mm[Hg] Dr. Nadir Grady Work Phone: [facility] 12-22-2023 09:11-0400 Body mass index (BMI) [Ratio] 28.08 kg/m2 Karin Hamm BRAILLE PROOFREADER.CERTIFIED ANESTHESIOLOGIST ASSISTANT Work Phone: [facility] 12-22-2023 09:11-0400 Body temperature 97.9 [degF] Karin Hamm BRAILLE PROOFREADER.CERTIFIED ANESTHESIOLOGIST ASSISTANT Work Phone: [facility] 12-22-2023 09:11-0400 Body weight 86 kg Karin Hamm BRAILLE PROOFREADER.CERTIFIED ANESTHESIOLOGIST ASSISTANT Work Phone: [facility] 12-22-2023 09:11-0400 Diastolic blood pressure 64 mm[Hg] Karin Hamm BRAILLE PROOFREADER.CERTIFIED ANESTHESIOLOGIST ASSISTANT Work Phone: [facility] 12-22-2023 09:11-0400 Heart rate 78 /min Karin Hamm BRAILLE PROOFREADER.CERTIFIED ANESTHESIOLOGIST ASSISTANT Work Phone: [facility] 12-22-2023 09:11-0400 Respiratory rate 16 /min Karin Hamm BRAILLE PROOFREADER.CERTIFIED ANESTHESIOLOGIST ASSISTANT Work Phone: [facility] 12-22-2023 09:11-0400 SaO2% (BldA) [Mass fraction] 96 % Karin Crespogs BRAILLE PROOFREADER.CERTIFIED ANESTHESIOLOGIST ASSISTANT Work Phone: [facility] 12-22-2023 09:11-0400 Systolic blood pressure 108 mm[Hg] Karin Hamm APRN.CERTIFIED ANESTHESIOLOGIST ASSISTANT Work Phone: [facility] 12-19-2023 09:52-0400 Body weight 86.[address] Nadir Grady Work Phone: [facility] 12-04-2023 13:08-0400 Body temperature 97.5 [degF] Dr. Nadir Grady Work Phone: [facility] 12-04-2023 13:08-0400 Diastolic blood pressure 78 mm[Hg] Dr. Nadir Grady Work Phone: [facility] 12-04-2023 13:08-0400 Heart rate 65 /min Dr. Nadir Grady Work Phone: [facility] 12-04-2023 13:08-0400 Respiratory rate 12 /min Dr. Nadir Grady Work Phone: [facility] 12-04-2023 13:08-0400 SaO2% (BldA) [Mass fraction] 98 % Dr. Nadir Grady Work Phone: [facility] 12-04-2023 13:08-0400 Systolic blood pressure 160 mm[Hg] Dr. Nadir Grady Work Phone: [facility] 12-03-2023 19:36-0400 Body height 177.[address] Nadir Grady Work Phone: [facility] 12-03-2023 19:36-0400 Body mass index (BMI) [Ratio] 27.4 kg/m2 Dr. Nadir Grady Work Phone: [facility] 12-03-2023 19:36-0400 Body weight 86.[address] Nadir Grady Work Phone: 6(831)585-566590 [place] [address] 12-03-2023 17:52-0400 Body temperature 98.1 [degF] Dr. Nadir Grady Work Phone: 1(508)545-798955 [place] [address] 12-03-2023 17:52-0400 Diastolic blood pressure 77 mm[Hg] Dr. Nadir Grady Work Phone: 8(539)879-688555 [place] [address] 12-03-2023 17:52-0400 Heart rate 91 /min Dr. Nadir Grady Work Phone: 7(543)833-384655 [place] [address] 12-03-2023 17:52-0400 Respiratory rate 16 /min Dr. Nadir Grady Work Phone: 9(888)217-125255 [place] [address] 12-03-2023 17:52-0400 SaO2% (BldA) [Mass fraction] 96 % Dr. Nadir Grady Work Phone: 4(600)822-662855 [place] [address] 12-03-2023 17:52-0400 Systolic blood pressure 137 mm[Hg] Dr. Nadir Grady Work Phone: 4(003)742-112555 [place] [address] 12-03-2023 17:43-0400 Body mass index (BMI) [Ratio] 28.4 kg/m2 Dr. Nadir Grady Work Phone: 7(927)452-841755 [place] [address] 12-03-2023 17:43-0400 Body weight 89.[address] Nadir Grady Work Phone: 9(009)090-900055 [place] [address] 12-03-2023 14:14-0400 Body height 177.[address] Nadir Grady Work Phone: 7(980)620-045755 [place] [address] 11-24-2023 07:06-0400 Body height 177.[address] Nadri Grady Work Phone: 5(735)031-254855 [place] [address] 11-24-2023 07:06-0400 Body weight 87.[address] Nadir Grady Work Phone: 5(949)489-944955 [place] [address] 11-21-2023 14:13-0400 Body mass index (BMI) [Ratio] 27.8 kg/m2 Dr. Nadir Grady Work Phone: 9(197)908-583455 [place] [address] 11-19-2023 13:57-0400 Body mass index (BMI) [Ratio] 27.8 kg/m2 Dr. Nadir Grady Work Phone: 5(926)757-679055 [place] [address] 11-19-2023 13:37-0400 Body weight 87.[address] Nadir Grady Work Phone: 0(853)006-972655 [place] [address] 11-19-2023 13:14-0400 Diastolic blood pressure 56 mm[Hg] Dr. Nadir Grady Work Phone: 6(370)244-672355 [place] [address] 11-19-2023 13:14-0400 Heart rate 73 /min Dr. Nadir Grady Work Phone: 7(728)438-577355 [place] [address] 11-19-2023 13:14-0400 SaO2% (BldA) [Mass fraction] 96 % Dr. Nadir Grady Work Phone: 6(092)709-937355 [place] [address] 11-19-2023 13:14-0400 Systolic blood pressure 130 mm[Hg] Dr. Nadir Grady Work Phone: 6(149)802-960555 [place] [address] 10-30-2023 08:59-0500 Body mass index (BMI) [Ratio] 27.8 kg/m2 Dr. Nadir Grady Work Phone: 9(443)804-414555 [place] [address] 10-30-2023 08:59-0500 Body weight 87.[address] Nadir Grady Work Phone: 5(818)539-622455 [place] [address] 10-30-2023 08:59-0500 Diastolic blood pressure 56 mm[Hg] Dr. Nadir Grady Work Phone: 0(276)169-074955 [place] [address] 10-30-2023 08:59-0500 Heart rate 73 /min Dr. Nadir Grady Work Phone: 9(896)528-769555 [place] [address] 10-30-2023 08:59-0500 Respiratory rate 18 /min Dr. Nadir Grady Work Phone: 0(062)821-856755 [place] [address] 10-30-2023 08:59-0500 SaO2% (BldA) [Mass fraction] 96 % Dr. Nadir Grady Work Phone: [facility] 10-30-2023 08:59-0500 Systolic blood pressure 130 mm[Hg] Dr. Nadir Grady Work Phone: [facility] 10-23-2023 13:44-0500 Body temperature 98.2 [degF] Dr. Nadir Grayd Work Phone: 1(048)957-702890 [place] [address] 10-23-2023 13:44-0500 Diastolic blood pressure 67 mm[Hg] Dr. Nadir Grady Work Phone: 8(151)932-251068 [place] [address] 10-23-2023 13:44-0500 Heart rate 60 /min Dr. Nadir Grady Work Phone: 9(933)595-823690 [place] [address] 10-23-2023 13:44-0500 Respiratory rate 18 /min Dr. Nadir Grady Work Phone: 7(244)290-771955 [place] [address] 10-23-2023 13:44-0500 SaO2% (BldA) [Mass fraction] 99 % Dr. Nadir Grady Work Phone: 0(148)278-411790 [place] [address] 10-23-2023 13:44-0500 Systolic blood pressure 129 mm[Hg] Dr. Nadir Grady Work Phone: [facility] 10-23-2023 09:23-0500 Body height 177.[address] Nadir Grady Work Phone: 6(113)080-554090 [place] [address] 10-23-2023 09:23-0500 Body mass index (BMI) [Ratio] 28.4 kg/m2 Dr. Nadir Grady Work Phone: [facility] 10-23-2023 09:23-0500 Body weight 89.[address] Nadir Grady Work Phone: [facility] 10-23-2023 08:57-0500 Body temperature 97.59 [degF] Ruthann Wadsworth APRN.CERTIFIED ANESTHESIOLOGIST ASSISTANT Work Phone: [facility] 10-23-2023 08:57-0500 Body weight 89.99 kg Ruthann Wadsworth APRN.CERTIFIED ANESTHESIOLOGIST ASSISTANT Work Phone: [facility] 10-23-2023 08:57-0500 Diastolic blood pressure 68 mm[Hg] Ruthann Wadsworth APRN.CERTIFIED ANESTHESIOLOGIST ASSISTANT Work Phone: [facility] 10-23-2023 08:57-0500 Heart rate 66 /min Ruthann Wadsworth APRN.CERTIFIED ANESTHESIOLOGIST ASSISTANT Work Phone: [facility] 10-23-2023 08:57-0500 Respiratory rate 16 /min Ruthann Wadsworth APRN.CERTIFIED ANESTHESIOLOGIST ASSISTANT Work Phone: [facility] 10-23-2023 08:57-0500 SaO2% (BldA) [Mass fraction] 96 % Ruthann Wadsworth APRN.CERTIFIED ANESTHESIOLOGIST ASSISTANT Work Phone: [facility] 10-23-2023 08:57-0500 Systolic blood pressure 134 mm[Hg] Ruthann Wadsworth APRN.CERTIFIED ANESTHESIOLOGIST ASSISTANT Work Phone: [facility] 10-15-2023 11:39-0500 Body temperature 97.7 [degF] Dr. Nadir Grady Work Phone: [facility] 10-15-2023 11:39-0500 Diastolic blood pressure 69 mm[Hg] Dr. Nadir Grady Work Phone: [facility] 10-15-2023 11:39-0500 Heart rate 59 /min Dr. Nadir Grady Work Phone: [facility] 10-15-2023 11:39-0500 Respiratory rate 16 /min Dr. Nadir Grady Work Phone: [facility] 10-15-2023 11:39-0500 SaO2% (BldA) [Mass fraction] 94 % Dr. Nadir Grady Work Phone: [facility] 10-15-2023 11:39-0500 Systolic blood pressure 156 mm[Hg] Dr. Nadir Grady Work Phone: [facility] 10-15-2023 08:36-0500 Body height 177.[address] Nadir Grady Work Phone: 1(632)247-696090 [place] [address] 10-15-2023 08:36-0500 Body mass index (BMI) [Ratio] 27.8 kg/m2 Dr. Nadir Grady Work Phone: 5(021)526-058255 [place] [address] 10-15-2023 08:36-0500 Body weight 88.[address] Nadir Grady Work Phone: 5(076)553-388755 [place] [address] 10-11-2023 13:17-0500 Diastolic blood pressure 62 mm[Hg] Dr. Nadir Grady Work Phone: 1(699)242-343555 [place] [address] 10-11-2023 13:17-0500 Heart rate 70 /min Dr. Nadir Grady Work Phone: 7(398)220-200955 [place] [address] 10-11-2023 13:17-0500 Respiratory rate 16 /min Dr. Nadir Grady Work Phone: 5(716)297-365955 [place] [address] 10-11-2023 13:17-0500 SaO2% (BldA) [Mass fraction] 96 % Dr. Nadir Grady Work Phone: 3(677)502-033355 [place] [address] 10-11-2023 13:17-0500 Systolic blood pressure 110 mm[Hg] Dr. Nadir Grady Work Phone: 5(970)433-065555 [place] [address] 10-11-2023 09:05-0500 Body temperature 98.1 [degF] Dr. Nadir Grady Work Phone: 3(577)937-683355 [place] [address] 10-11-2023 06:00-0500 Body mass index (BMI) [Ratio] 28.7 kg/m2 Dr. Nadir Grady Work Phone: 0(509)479-677155 [place] [address] 10-11-2023 06:00-0500 Body weight 90.[address] Nadir Grady Work Phone: 3(187)972-164555 [place] [address] 10-09-2023 23:26-0500 Body height 177.[address] Nadir Grady Work Phone: 9(353)127-379655 [place] [address] 10-09-2023 20:23-0500 Body temperature 97.9 [degF] Dr. Nadir Grady Work Phone: [facility] 10-09-2023 20:23-0500 Diastolic blood pressure 69 mm[Hg] Dr. Nadir Grady Work Phone: [phone] [place] [address] 10-09-2023 20:23-0500 Heart rate 87 /min Dr. Nadir Grady Work Phone: [phone] [place] [address] 10-09-2023 20:23-0500 Respiratory rate 24 /min Dr. Nadir Grady Work Phone: [phone] [place] [address] 10-09-2023 20:23-0500 SaO2% (BldA) [Mass fraction] 93 % Dr. Nadir Grady Work Phone: [phone] [place] [address] 10-09-2023 20:23-0500 Systolic blood pressure 118 mm[Hg] Dr. Nadir Grady Work Phone: [phone] [place] [address] 10-09-2023 18:29-0500 Body mass index (BMI) [Ratio] 34.7 kg/m2 Dr. Nadir Grady Work Phone: 1(011)[phone] [place] [address] 10-09-2023 18:29-0500 Body weight 109.[address] Nadir Grady Work Phone: [phone])[phone] [place] [address] 10-09-2023 18:10-0500 Body height 177.[address] Nadir Grady Work Phone: [phone](422)[phone] [place] [address] 06-26-2023 09:26-0400 Body temperature 97.81 [degF] Fer Merrill APRN.CERTIFIED ANESTHESIOLOGIST ASSISTANT Work Phone: [facility] 06-26-2023 09:26-0400 Body weight 84.46 kg Fer Merrill APRN.CERTIFIED ANESTHESIOLOGIST ASSISTANT Work Phone: [facility] 06-26-2023 09:26-0400 Diastolic blood pressure 80 mm[Hg] Fer Merrill APRN.CERTIFIED ANESTHESIOLOGIST ASSISTANT Work Phone: [facility] 06-26-2023 09:26-0400 Heart rate 72 /min Fer Merrill APRN.CERTIFIED ANESTHESIOLOGIST ASSISTANT Work Phone: [facility] 06-26-2023 09:26-0400 Respiratory rate 16 /min Fer Merrill APRN.CERTIFIED ANESTHESIOLOGIST ASSISTANT Work Phone: [facility] 06-26-2023 09:26-0400 SaO2% (BldA) [Mass fraction] 97 % Fer Merrill APRN.CERTIFIED ANESTHESIOLOGIST ASSISTANT Work Phone: [facility] 06-26-2023 09:26-0400 Systolic blood pressure 142 mm[Hg] Fer Merrill APRN.CERTIFIED ANESTHESIOLOGIST ASSISTANT Work Phone: [facility] 05-15-2023 08:55-0400 Body height 177.[address] Nadir Grady Work Phone: [facility] 05-15-2023 08:55-0400 Body mass index (BMI) [Ratio] 27.1 kg/m2 Dr. Nadir Grady Work Phone: [facility] 05-15-2023 08:55-0400 Body weight 85.[address] Nadir Grady Work Phone: [facility] 05-15-2023 08:55-0400 Diastolic blood pressure 74 mm[Hg] Dr. Nadir Grady Work Phone: [facility] 05-15-2023 08:55-0400 Heart rate 66 /min Dr. Nadir Grady Work Phone: [facility] 05-15-2023 08:55-0400 Respiratory rate 20 /min Dr. Nadir Grady Work Phone: [facility] 05-15-2023 08:55-0400 Systolic blood pressure 157 mm[Hg] Dr. Nadir Grady Work Phone: [facility] 04-01-2023 07:38-0400 Body temperature 97.5 [degF] Blanca Lee PA-C Work Phone: [facility] 04-01-2023 07:38-0400 Body weight 78.93 kg Blanca DENISE-Terence Work Phone: [facility] 04-01-2023 07:38-0400 Diastolic blood pressure 74 mm[Hg] Blanca Athy PA-C Work Phone: [facility] 04-01-2023 07:38-0400 Heart rate 68 /min Blanca Athy PA-C Work Phone: [facility] 04-01-2023 07:38-0400 Respiratory rate 16 /min Blanca Athy PA-C Work Phone: [facility] 04-01-2023 07:38-0400 SaO2% (BldA) [Mass fraction] 98 % Blanca Athy PA-C Work Phone: [facility] 04-01-2023 07:38-0400 Systolic blood pressure 142 mm[Hg] Blanca Athy PA-C Work Phone: [facility] 03-10-2023 12:40-0400 Body temperature 98.01 [degF] Ute Rl BRAILLE PROOFREADER.CERTIFIED ANESTHESIOLOGIST ASSISTANT Work Phone: [facility] 03-10-2023 12:40-0400 Body weight 79.29 kg Ute Rl BRAILLE PROOFREADER.CERTIFIED ANESTHESIOLOGIST ASSISTANT Work Phone: [facility] 03-10-2023 12:40-0400 Diastolic blood pressure 78 mm[Hg] Ute Rl BRAILLE PROOFREADER.CERTIFIED ANESTHESIOLOGIST ASSISTANT Work Phone: [facility] 03-10-2023 12:40-0400 Heart rate 71 /min Ute Rl BRAILLE PROOFREADER.CERTIFIED ANESTHESIOLOGIST ASSISTANT Work Phone: [facility] 03-10-2023 12:40-0400 Respiratory rate 18 /min Ute Rl BRAILLE PROOFREADER.CERTIFIED ANESTHESIOLOGIST ASSISTANT Work Phone: [facility] 03-10-2023 12:40-0400 SaO2% (BldA) [Mass fraction] 99 % Ute Rl BRAILLE PROOFREADER.CERTIFIED ANESTHESIOLOGIST ASSISTANT Work Phone: [facility] 03-10-2023 12:40-0400 Systolic blood pressure 136 mm[Hg] Ute Rl BRAILLE PROOFREADER.CERTIFIED ANESTHESIOLOGIST ASSISTANT Work Phone: [facility] 11-28-2022 12:33-0400 Body height 175 cm Martha Boston PA-C Work Phone: [facility] 11-28-2022 12:33-0400 Body temperature 98.1 [degF] Martha Boston PA-C Work Phone: [facility] 11-28-2022 12:33-0400 Body weight 78.47 kg Martha Boston PA-C Work Phone: [facility] 11-28-2022 12:33-0400 Diastolic blood pressure 66 mm[Hg] Martha Boston PA-C Work Phone: [facility] 11-28-2022 12:33-0400 Heart rate 66 /min Martha Boston PA-C Work Phone: [facility] 11-28-2022 12:33-0400 Respiratory rate 16 /min Martha Boston PA-C Work Phone: [facility] 11-28-2022 12:33-0400 Systolic blood pressure 136 mm[Hg] Martha Boston PA-C Work Phone: [facility] 11-21-2022 09:39-0400 Body temperature 97.5 [degF] Jenna Dahlhausen BRAILLE PROOFREADER.CERTIFIED ANESTHESIOLOGIST ASSISTANT Work Phone: [facility] 11-21-2022 09:39-0400 Body weight 79.92 kg Jenna Dahlhausen BRAILLE PROOFREADER.CERTIFIED ANESTHESIOLOGIST ASSISTANT Work Phone: [facility] 11-21-2022 09:39-0400 Diastolic blood pressure 70 mm[Hg] Jenna Dahlhausen BRAILLE PROOFREADER.CERTIFIED ANESTHESIOLOGIST ASSISTANT Work Phone: [facility] 11-21-2022 09:39-0400 Heart rate 73 /min Jenna Dahlhausen BRAILLE PROOFREADER.CERTIFIED ANESTHESIOLOGIST ASSISTANT Work Phone: [facility] 11-21-2022 09:39-0400 Respiratory rate 18 /min Jenna Dahlhausen BRAILLE PROOFREADER.CERTIFIED ANESTHESIOLOGIST ASSISTANT Work Phone: [facility] 11-21-2022 09:39-0400 SaO2% (BldA) [Mass fraction] 98 % Jenna Jim BRAILLE PROOFREADER.CERTIFIED ANESTHESIOLOGIST ASSISTANT Work Phone: [facility] 11-21-2022 09:39-0400 Systolic blood pressure 115 mm[Hg] Jenna Lamhausen BRAILLE PROOFREADER.CERTIFIED ANESTHESIOLOGIST ASSISTANT Work Phone: [facility] 11-12-2022 11:29-0400 Body temperature 97.3 [degF] Fer Garfield BRAILLE PROOFREADER.CERTIFIED ANESTHESIOLOGIST ASSISTANT Work Phone: [facility] 11-12-2022 11:29-0400 Body weight 80.83 kg Fer Garfield BRAILLE PROOFREADER.CERTIFIED ANESTHESIOLOGIST ASSISTANT Work Phone: [facility] 11-12-2022 11:29-0400 Diastolic blood pressure 78 mm[Hg] Fer Garfield BRAILLE PROOFREADER.CERTIFIED ANESTHESIOLOGIST ASSISTANT Work Phone: [facility] 11-12-2022 11:29-0400 Heart rate 86 /min Fer Garfield BRAILLE PROOFREADER.CERTIFIED ANESTHESIOLOGIST ASSISTANT Work Phone: [facility] 11-12-2022 11:29-0400 Respiratory rate 18 /min Fer Garfield BRAILLE PROOFREADER.CERTIFIED ANESTHESIOLOGIST ASSISTANT Work Phone: [facility] 11-12-2022 11:29-0400 SaO2% (BldA) [Mass fraction] 97 % Fer Merrill BRAILLE PROOFREADER.CERTIFIED ANESTHESIOLOGIST ASSISTANT Work Phone: [facility] 11-12-2022 11:29-0400 Systolic blood pressure 142 mm[Hg] Fer Garfield BRAILLE PROOFREADER.CERTIFIED ANESTHESIOLOGIST ASSISTANT Work Phone: [facility] 10-29-2022 16:10-0500 Body height 177.8 cm Jennifer [place] PA-C Work Phone: [facility] 10-29-2022 16:10-0500 Body temperature 97.9 [degF] Jennifer Savanah PA-C Work Phone: [facility] 10-29-2022 16:10-0500 Body weight 81.19 kg Jennifer [place] PA-C Work Phone: [facility] 10-29-2022 16:10-0500 Diastolic blood pressure 64 mm[Hg] Jennifer [place] PA-C Work Phone: [facility] 10-29-2022 16:10-0500 Heart rate 82 /min Jennifer Savanah PA-C Work Phone: [facility] 10-29-2022 16:10-0500 SaO2% (BldA) [Mass fraction] 96 % Jennifer [place] PA-C Work Phone: [facility] 10-29-2022 16:10-0500 Systolic blood pressure 124 mm[Hg] Jennifer Savanah PA-C Work Phone: [facility] 10-14-2022 12:30-0500 Diastolic blood pressure 81 mm[Hg] Thai Santiago MD Work Phone: [facility] 10-14-2022 12:30-0500 Heart rate 82 /min Thai Santiago MD Work Phone: [facility] 10-14-2022 12:30-0500 Respiratory rate 20 /min Thai Santiago MD Work Phone: [facility] 10-14-2022 12:30-0500 SaO2% (BldA) [Mass fraction] 97 % Thai Santiago MD Work Phone: [facility] 10-14-2022 12:30-0500 Systolic blood pressure 175 mm[Hg] Thai Santiago MD Work Phone: [facility] 10-14-2022 11:55-0500 Body temperature 97.5 [degF] Thai Santiago MD Work Phone: [facility] 10-14-2022 11:05-0500 Body height 177.8 cm Thai Santiago MD Work Phone: [facility] 10-14-2022 11:05-0500 Body weight 78.93 kg Thai Santiago MD Work Phone: [facility] 10-05-2022 11:43-0500 Body weight 78.93 kg Nadir Grady MD Work Phone: [facility] 10-05-2022 11:43-0500 Diastolic blood pressure 68 mm[Hg] Nadir Grady MD Work Phone: [facility] 10-05-2022 11:43-0500 Heart rate 77 /min Nadir Grady MD Work Phone: [facility] 10-05-2022 11:43-0500 Respiratory rate 16 /min Nadir Grady MD Work Phone: [facility] 10-05-2022 11:43-0500 SaO2% (BldA) [Mass fraction] 96 % Nadir Grady MD Work Phone: [facility] 10-05-2022 11:43-0500 Systolic blood pressure 110 mm[Hg] Nadir Grady MD Work Phone: [facility] 09-23-2022 13:25-0500 Body temperature 97.81 [degF] Miladys Praisler-Wood BRAILLE PROOFREADER.CERTIFIED ANESTHESIOLOGIST ASSISTANT Work Phone: [facility] 09-23-2022 13:25-0500 Body weight 81.1 kg Miladys Praisler-Wood BRAILLE PROOFREADER.CERTIFIED ANESTHESIOLOGIST ASSISTANT Work Phone: [facility] 09-23-2022 13:25-0500 Diastolic blood pressure 72 mm[Hg] Miladys Praisler-Wood BRAILLE PROOFREADER.CERTIFIED ANESTHESIOLOGIST ASSISTANT Work Phone: [facility] 09-23-2022 13:25-0500 Heart rate 75 /min Miladys Praisler-Wood BRAILLE PROOFREADER.CERTIFIED ANESTHESIOLOGIST ASSISTANT Work Phone: [facility] 09-23-2022 13:25-0500 Respiratory rate 21 /min Miladys Praisler-Wood BRAILLE PROOFREADER.CERTIFIED ANESTHESIOLOGIST ASSISTANT Work Phone: [facility] 09-23-2022 13:25-0500 SaO2% (BldA) [Mass fraction] 98 % Miladys Praisler-Wood BRAILLE PROOFREADER.CERTIFIED ANESTHESIOLOGIST ASSISTANT Work Phone: [facility] 09-23-2022 13:25-0500 Systolic blood pressure 152 mm[Hg] Miladys Praisler-Wood BRAILLE PROOFREADER.CERTIFIED ANESTHESIOLOGIST ASSISTANT Work Phone: [facility] 09-19-2022 15:25-0500 Body temperature 97.7 [degF] Jenna Dahlhausen BRAILLE PROOFREADER.CERTIFIED ANESTHESIOLOGIST ASSISTANT Work Phone: [facility] 09-19-2022 15:25-0500 Body weight 78.65 kg Jenna Dahlhausen BRAILLE PROOFREADER.CERTIFIED ANESTHESIOLOGIST ASSISTANT Work Phone: [facility] 09-19-2022 15:25-0500 Diastolic blood pressure 82 mm[Hg] Jenna Dahlhausen BRAILLE PROOFREADER.CERTIFIED ANESTHESIOLOGIST ASSISTANT Work Phone: [facility] 09-19-2022 15:25-0500 Heart rate 76 /min Jenna Dahlhausen BRAILLE PROOFREADER.CERTIFIED ANESTHESIOLOGIST ASSISTANT Work Phone: [facility] 09-19-2022 15:25-0500 Respiratory rate 16 /min Jenna Dahlhausen BRAILLE PROOFREADER.CERTIFIED ANESTHESIOLOGIST ASSISTANT Work Phone: [facility] 09-19-2022 15:25-0500 SaO2% (BldA) [Mass fraction] 95 % Jenna Dahlhausen BRAILLE PROOFREADER.CERTIFIED ANESTHESIOLOGIST ASSISTANT Work Phone: [facility] 09-19-2022 15:25-0500 Systolic blood pressure 128 mm[Hg] Jenna Dahlhausen BRAILLE PROOFREADER.CERTIFIED ANESTHESIOLOGIST ASSISTANT Work Phone: [facility] 08-21-2022 09:03-0500 Body weight 78.02 kg Nadir Grady MD Work Phone: [facility] 08-21-2022 09:03-0500 Diastolic blood pressure 74 mm[Hg] Nadir Grady MD Work Phone: [facility] 08-21-2022 09:03-0500 Heart rate 76 /min Nadir Grady MD Work Phone: [facility] 08-21-2022 09:03-0500 Respiratory rate 16 /min Nadir Grady MD Work Phone: [facility] 08-21-2022 09:03-0500 Systolic blood pressure 128 mm[Hg] Nadir Grady MD Work Phone: [facility] 08-05-2022 12:56-0500 Body height 177.8 cm Mike Lucero MD Work Phone: [facility] 08-05-2022 12:56-0500 Body weight 77.11 kg Mike Lucero MD Work Phone: [facility] 08-05-2022 12:56-0500 Diastolic blood pressure 79 mm[Hg] Mike Lucero MD Work Phone: [facility] 08-05-2022 12:56-0500 Heart rate 73 /min Mike Lucero MD Work Phone: [facility] 08-05-2022 12:56-0500 Respiratory rate 18 /min Mike Lucero MD Work Phone: [facility] 08-05-2022 12:56-0500 Systolic blood pressure 159 mm[Hg] Mike Lucero MD Work Phone: [facility] 07-30-2022 15:28-0500 Body weight 77.11 kg Franny Catalan BRAILLE PROOFREADER.CERTIFIED ANESTHESIOLOGIST ASSISTANT Work Phone: [facility] 07-30-2022 15:28-0500 Diastolic blood pressure 70 mm[Hg] Franny Manueloble BRAILLE PROOFREADER.CERTIFIED ANESTHESIOLOGIST ASSISTANT Work Phone: [facility] 07-30-2022 15:28-0500 Heart rate 78 /min Franny Knoble BRAILLE PROOFREADER.CERTIFIED ANESTHESIOLOGIST ASSISTANT Work Phone: [facility] 07-30-2022 15:28-0500 Respiratory rate 16 /min Franny Knoble BRAILLE PROOFREADER.CERTIFIED ANESTHESIOLOGIST ASSISTANT Work Phone: [facility] 07-30-2022 15:28-0500 Systolic blood pressure 136 mm[Hg] Franny Knoble BRAILLE PROOFREADER.CERTIFIED ANESTHESIOLOGIST ASSISTANT Work Phone: [facility] 06-27-2022 09:25-0400 Body height 177.8 cm Thai Santiago MD Work Phone: [facility] 06-27-2022 09:25-0400 Body temperature 97.39 [degF] Thai Santiago MD Work Phone: [facility] 06-27-2022 09:25-0400 Body weight 71.67 kg Thai Santiago MD Work Phone: [facility] 06-27-2022 09:25-0400 Diastolic blood pressure 62 mm[Hg] Thai Santiago MD Work Phone: [facility] 06-27-2022 09:25-0400 Heart rate 80 /min Thai Santiago MD Work Phone: [facility] 06-27-2022 09:25-0400 SaO2% (BldA) [Mass fraction] 97 % Thai Santiago MD Work Phone: [facility] 06-27-2022 09:25-0400 Systolic blood pressure 110 mm[Hg] Thai Santiago MD Work Phone: [facility] 06-25-2022 07:59-0400 Body temperature 98.71 [degF] Martha Boston PA-C Work Phone: [facility] 06-25-2022 07:59-0400 Body weight 70.76 kg Martha Boston PA-C Work Phone: [facility] 06-25-2022 07:59-0400 Diastolic blood pressure 50 mm[Hg] Martha Boston PA-C Work Phone: [facility] 06-25-2022 07:59-0400 Heart rate 76 /min Martha Boston PA-C Work Phone: [facility] 06-25-2022 07:59-0400 Respiratory rate 16 /min Martha Boston PA-C Work Phone: [facility] 06-25-2022 07:59-0400 Systolic blood pressure 80 mm[Hg] Martha Boston PA-C Work Phone: [facility] 05-28-2022 21:33-0400 Diastolic blood pressure 89 mm[Hg] Dr. Nadir Grady Work Phone: [facility] Work Phone: 05-28-2022 21:33-0400 Heart rate 74 /min Dr. Nadir Grady Work Phone: [facility] Work Phone: 05-28-2022 21:33-0400 Respiratory rate 16 /min Dr. Nadir Grady Work Phone: [facility] Work Phone: 05-28-2022 21:33-0400 SaO2% (BldA) [Mass fraction] 98 % Dr. Nadir Grady Work Phone: [facility] Work Phone: 05-28-2022 21:33-0400 Systolic blood pressure 184 mm[Hg] Dr. Nadir Grady Work Phone: [facility] Work Phone: 05-28-2022 16:02-0400 Body height 177.[address] Nadir Grady Work Phone: [facility] Work Phone: 05-28-2022 16:02-0400 Body mass index (BMI) [Ratio] 23.1 kg/m2 Dr. Nadir Grady Work Phone: [facility] Work Phone: 05-28-2022 16:02-0400 Body temperature 98.2 [degF] Dr. Nadir Grady Work Phone: [facility] Work Phone: 05-28-2022 16:02-0400 Body weight 73.[address] Nadir Grady Work Phone: [facility] Work Phone: 05-13-2022 07:45-0400 Body temperature 98.1 [degF] Martha Boston PA-C Work Phone: [facility] 05-13-2022 07:45-0400 Body weight 73.48 kg Martha Boston PA-C Work Phone: [facility] 05-13-2022 07:45-0400 Diastolic blood pressure 66 mm[Hg] Martha Boston PA-C Work Phone: [facility] 05-13-2022 07:45-0400 Heart rate 72 /min Martha Boston PA-C Work Phone: [facility] 05-13-2022 07:45-0400 Respiratory rate 16 /min Martha Boston PA-C Work Phone: [facility] 05-13-2022 07:45-0400 Systolic blood pressure 138 mm[Hg] Martha Boston PA-C Work Phone: [facility] 04-25-2022 13:14-0400 Body temperature 97.81 [degF] Rin Latiferich BRAILLE PROOFREADER.CERTIFIED ANESTHESIOLOGIST ASSISTANT Work Phone: [facility] 04-25-2022 13:14-0400 Body weight 79.52 kg Rin Gagnon BRAILLE PROOFREADER.CERTIFIED ANESTHESIOLOGIST ASSISTANT Work Phone: [facility] 04-25-2022 13:14-0400 Diastolic blood pressure 70 mm[Hg] Rin Latiferich BRAILLE PROOFREADER.CERTIFIED ANESTHESIOLOGIST ASSISTANT Work Phone: [facility] 04-25-2022 13:14-0400 Heart rate 86 /min Rin Latiferich BRAILLE PROOFREADER.CERTIFIED ANESTHESIOLOGIST ASSISTANT Work Phone: [facility] 04-25-2022 13:14-0400 Respiratory rate 16 /min Rin Latiferich BRAILLE PROOFREADER.CERTIFIED ANESTHESIOLOGIST ASSISTANT Work Phone: [facility] 04-25-2022 13:14-0400 SaO2% (BldA) [Mass fraction] 97 % Rin Latiferich BRAILLE PROOFREADER.CERTIFIED ANESTHESIOLOGIST ASSISTANT Work Phone: [facility] 04-25-2022 13:14-0400 Systolic blood pressure 109 mm[Hg] Rin Latiferich BRAILLE PROOFREADER.CERTIFIED ANESTHESIOLOGIST ASSISTANT Work Phone: [facility] 04-24-2022 07:46-0400 Body height 177.[address] Nadir Grady Work Phone: [facility] Work Phone: 04-24-2022 07:46-0400 Body mass index (BMI) [Ratio] 23.9 kg/m2 Dr. Nadir Grady Work Phone: [facility] Work Phone: 04-24-2022 07:46-0400 Body temperature 96.8 [degF] Dr. Nadir Grady Work Phone: [facility] Work Phone: 04-24-2022 07:46-0400 Body weight 75.[address] Nadir Grady Work Phone: [facility] Work Phone: 04-24-2022 07:46-0400 Diastolic blood pressure 72 mm[Hg] Dr. Nadir Grady Work Phone: [facility] Work Phone: 04-24-2022 07:46-0400 Heart rate 83 /min Dr. Ndair Grady Work Phone: [facility] Work Phone: 04-24-2022 07:46-0400 Respiratory rate 16 /min Dr. Nadir Grady Work Phone: [facility] Work Phone: 04-24-2022 07:46-0400 SaO2% (BldA) [Mass fraction] 99 % Dr. Nadir Grady Work Phone: [facility] Work Phone: 04-24-2022 07:46-0400 Systolic blood pressure 134 mm[Hg] Dr. Nadir Grady Work Phone: [facility] Work Phone: 04-19-2022 11:08-0400 Body mass index (BMI) [Ratio] 25.2 kg/m2 Dr. Nadir Grady Work Phone: [facility] Work Phone: 04-19-2022 11:08-0400 Body weight 79.[address] Nadir Grady Work Phone: [facility] Work Phone: 04-19-2022 11:08-0400 Diastolic blood pressure 58 mm[Hg] Dr. Nadir Grady Work Phone: [facility] Work Phone: 04-19-2022 11:08-0400 Heart rate 82 /min Dr. Nadir Grady Work Phone: [facility] Work Phone: 04-19-2022 11:08-0400 Respiratory rate 16 /min Dr. Nadir Grady Work Phone: [facility] Work Phone: 04-19-2022 11:08-0400 Systolic blood pressure 117 mm[Hg] Dr. Nadir Grady Work Phone: [facility] Work Phone: 04-19-2022 08:09-0400 Body temperature 98.2 [degF] Martha Boston PA-C Work Phone: [facility] 04-19-2022 08:09-0400 Body weight 79.83 kg Martha Boston PA-C Work Phone: [facility] 04-19-2022 08:09-0400 Diastolic blood pressure 68 mm[Hg] Martha Boston PA-C Work Phone: [facility] 04-19-2022 08:09-0400 Heart rate 96 /min Martha Boston PA-C Work Phone: [facility] 04-19-2022 08:09-0400 Respiratory rate 18 /min Martha Boston PA-C Work Phone: [facility] 04-19-2022 08:09-0400 Systolic blood pressure 118 mm[Hg] Martha Boston PA-C Work Phone: [facility] 04-15-2022 15:40-0400 Body temperature 97 [degF] Dr. Nadir Grady Work Phone: [facility] Work Phone: 04-15-2022 15:40-0400 Body weight 79.[address] Nadir Grady Work Phone: [facility] Work Phone: 04-15-2022 15:40-0400 Diastolic blood pressure 66 mm[Hg] Dr. Nadir Grady Work Phone: [facility] Work Phone: 04-15-2022 15:40-0400 Heart rate 92 /min Dr. Nadir Grady Work Phone: [facility] Work Phone: 04-15-2022 15:40-0400 Respiratory rate 16 /min Dr. Nadir Grady Work Phone: [facility] Work Phone: 04-15-2022 15:40-0400 SaO2% (BldA) [Mass fraction] 97 % Dr. Nadir Grady Work Phone: [facility] Work Phone: 04-15-2022 15:40-0400 Systolic blood pressure 112 mm[Hg] Dr. Nadir Grady Work Phone: [facility] Work Phone: 03-22-2022 18:46-0400 Diastolic blood pressure 95 mm[Hg] Dr. Nadir Grady Work Phone: [facility] Work Phone: 03-22-2022 18:46-0400 Heart rate 74 /min Dr. Nadir Grady Work Phone: [facility] Work Phone: 03-22-2022 18:46-0400 Respiratory rate 16 /min Dr. Nadir Grady Work Phone: [facility] Work Phone: 03-22-2022 18:46-0400 SaO2% (BldA) [Mass fraction] 99 % Dr. Nadir Grady Work Phone: [facility] Work Phone: 03-22-2022 18:46-0400 Systolic blood pressure 176 mm[Hg] Dr. Nadir Grady Work Phone: [facility] Work Phone: 03-22-2022 13:49-0400 Body height 177.[address] Nadir Grady Work Phone: [facility] Work Phone: 03-22-2022 13:49-0400 Body mass index (BMI) [Ratio] 25.2 kg/m2 Dr. Nadir Grady Work Phone: [facility] Work Phone: 03-22-2022 13:49-0400 Body temperature 98.1 [degF] Dr. Nadir Grady Work Phone: [facility] Work Phone: 03-22-2022 13:49-0400 Body weight 79.[address] Nadir Grady Work Phone: [facility] Work Phone: 02-11-2022 08:44-0400 Body height 177.[address] Nadir Grady Work Phone: [facility] Work Phone: 02-11-2022 08:44-0400 Body weight 78.[address] Nadir Grady Work Phone: [facility] Work Phone: 02-08-2022 08:06-0400 Body mass index (BMI) [Ratio] 24.8 kg/m2 Dr. Nadir Grady Work Phone: [facility] Work Phone: 02-07-2022 07:50-0400 Body temperature 97.81 [degF] Jenna Dahlhausen BRAILLE PROOFREADER.CERTIFIED ANESTHESIOLOGIST ASSISTANT Work Phone: [facility] 02-07-2022 07:50-0400 Body weight 78.93 kg Jenna Dahlhausen BRAILLE PROOFREADER.CERTIFIED ANESTHESIOLOGIST ASSISTANT Work Phone: [facility] 02-07-2022 07:50-0400 Diastolic blood pressure 60 mm[Hg] Jenna Dahlhausen BRAILLE PROOFREADER.CERTIFIED ANESTHESIOLOGIST ASSISTANT Work Phone: [facility] 02-07-2022 07:50-0400 Heart rate 83 /min Jenna Dahlhausen BRAILLE PROOFREADER.CERTIFIED ANESTHESIOLOGIST ASSISTANT Work Phone: [facility] 02-07-2022 07:50-0400 Respiratory rate 18 /min Jenna Dahlhausen BRAILLE PROOFREADER.CERTIFIED ANESTHESIOLOGIST ASSISTANT Work Phone: [facility] 02-07-2022 07:50-0400 SaO2% (BldA) [Mass fraction] 99 % Jenna Lamhausen BRAILLE PROOFREADER.CERTIFIED ANESTHESIOLOGIST ASSISTANT Work Phone: [facility] 02-07-2022 07:50-0400 Systolic blood pressure 122 mm[Hg] Jenna Niteshhlhausen BRAILLE PROOFREADER.CERTIFIED ANESTHESIOLOGIST ASSISTANT Work Phone: [facility] 01-04-2022 08:56-0400 Body mass index (BMI) [Ratio] 24.8 kg/m2 Dr. Nadir Grady Work Phone: [facility] Work Phone: 01-04-2022 08:56-0400 Body weight 78.[address] Nadir Grady Work Phone: [facility] Work Phone: 01-04-2022 08:56-0400 Diastolic blood pressure 61 mm[Hg] Dr. Nadir Grady Work Phone: [facility] Work Phone: 01-04-2022 08:56-0400 Heart rate 99 /min Dr. Nadir Grady Work Phone: [facility] Work Phone: 01-04-2022 08:56-0400 Respiratory rate 20 /min Dr. Nadir Grady Work Phone: [facility] Work Phone: 01-04-2022 08:56-0400 Systolic blood pressure 107 mm[Hg] Dr. Nadir Grady Work Phone: [facility] Work Phone: 01-04-2022 08:56-0400 Body height 177.[address] Nadir Grady Work Phone: [facility] Work Phone: 01-04-2022 08:56-0400 Body mass index (BMI) [Ratio] 24.8 kg/m2 Dr. Nadir Grady Work Phone: [facility] Work Phone: 01-04-2022 08:56-0400 Body weight 78.[address] Nadir Grady Work Phone: [facility] Work Phone: 01-04-2022 08:56-0400 Diastolic blood pressure 61 mm[Hg] Dr. Nadir Grady Work Phone: [facility] Work Phone: 01-04-2022 08:56-0400 Heart rate 99 /min Dr. Nadir Grady Work Phone: [facility] Work Phone: 01-04-2022 08:56-0400 Respiratory rate 20 /min Dr. Nadir Grady Work Phone: [facility] Work Phone: 01-04-2022 08:56-0400 Systolic blood pressure 107 mm[Hg] Dr. Nadir Grady Work Phone: [facility] Work Phone: 12-29-2021 21:03-0400 Diastolic blood pressure 80 mm[Hg] Dr. Nadir Grady Work Phone: [facility] Work Phone: 12-29-2021 21:03-0400 Heart rate 83 /min Dr. Nadir Gardy Work Phone: [facility] Work Phone: 12-29-2021 21:03-0400 Respiratory rate 17 /min Dr. Nadir Grady Work Phone: [facility] Work Phone: 12-29-2021 21:03-0400 SaO2% (BldA) [Mass fraction] 98 % Dr. Nadir Grady Work Phone: [facility] Work Phone: 12-29-2021 21:03-0400 Systolic blood pressure 143 mm[Hg] Dr. Nadir Grady Work Phone: [facility] Work Phone: 12-29-2021 17:20-0400 Body height 177.[address] Nadir Grady Work Phone: [facility] Work Phone: 12-29-2021 17:20-0400 Body mass index (BMI) [Ratio] 24.9 kg/m2 Dr. Nadir Grady Work Phone: [facility] Work Phone: 12-29-2021 17:20-0400 Body temperature 97.4 [degF] Dr. Nadir Grady Work Phone: [facility] Work Phone: 12-29-2021 17:20-0400 Body weight 78.[address] Nadir Grady Work Phone: [facility] Work Phone: 12-20-2021 09:31-0400 Diastolic blood pressure 40 mm[Hg] Dr. Nadir Grady Work Phone: [facility] Work Phone: 12-20-2021 09:31-0400 Heart rate 100 /min Dr. Nadir Grady Work Phone: [facility] Work Phone: 12-20-2021 09:31-0400 Respiratory rate 20 /min Dr. Nadir Grady Work Phone: [facility] Work Phone: 12-20-2021 09:31-0400 Systolic blood pressure 70 mm[Hg] Dr. Nadir Grady Work Phone: [facility] Work Phone: 12-20-2021 09:31-0400 Diastolic blood pressure 40 mm[Hg] Dr. Nadir Grady Work Phone: [facility] Work Phone: 12-20-2021 09:31-0400 Heart rate 100 /min Dr. Nadir Grady Work Phone: [facility] Work Phone: 12-20-2021 09:31-0400 Respiratory rate 20 /min Dr. Nadir Grady Work Phone: [facility] Work Phone: 12-20-2021 09:31-0400 Systolic blood pressure 70 mm[Hg] Dr. Nadir Grady Work Phone: [facility] Work Phone: 12-13-2021 06:59-0400 Body height 177.[address] Nadir Grady Work Phone: [facility] Work Phone: 12-13-2021 06:59-0400 Body weight 77.[address] Nadir Grady Work Phone: [facility] Work Phone: 12-12-2021 07:46-0400 Body mass index (BMI) [Ratio] 24.3 kg/m2 Dr. Nadir Grady Work Phone: [facility] Work Phone: 11-12-2021 08:35-0400 Body mass index (BMI) [Ratio] 24.3 kg/m2 Dr. Nadir Grady Work Phone: [facility] Work Phone: 11-12-2021 08:35-0400 Body weight 77.[address] Nadir Grady Work Phone: [facility] Work Phone: 11-12-2021 08:35-0400 Diastolic blood pressure 57 mm[Hg] Dr. Nadir Grady Work Phone: [facility] Work Phone: 11-12-2021 08:35-0400 Heart rate 85 /min Dr. Nadir Grady Work Phone: [facility] Work Phone: 11-12-2021 08:35-0400 Respiratory rate 16 /min Dr. Nadir Grady Work Phone: [facility] Work Phone: 11-12-2021 08:35-0400 Systolic blood pressure 91 mm[Hg] Dr. Nadir Grady Work Phone: [facility] Work Phone: 11-02-2021 10:10-0500 Body mass index (BMI) [Ratio] 24.7 kg/m2 Dr. Nadir Grady Work Phone: [facility] Work Phone: 11-02-2021 10:10-0500 Body temperature 96.9 [degF] Dr. Nadir Grady Work Phone: [facility] Work Phone: 11-02-2021 10:10-0500 Body weight 78.[address] Nadir Grady Work Phone: [facility] Work Phone: 11-02-2021 10:10-0500 Diastolic blood pressure 82 mm[Hg] Dr. Nadir Grady Work Phone: [facility] Work Phone: 11-02-2021 10:10-0500 Heart rate 86 /min Dr. Nadir Grady Work Phone: [facility] Work Phone: 11-02-2021 10:10-0500 Respiratory rate 17 /min Dr. Nadir Grady Work Phone: [facility] Work Phone: 11-02-2021 10:10-0500 SaO2% (BldA) [Mass fraction] 98 % Dr. Nadir Grady Work Phone: [facility] Work Phone: 11-02-2021 10:10-0500 Systolic blood pressure 148 mm[Hg] Dr. Nadir Grady Work Phone: [facility] Work Phone: 10-16-2021 12:49-0500 Diastolic blood pressure 74 mm[Hg] Dr. Nadir Grady Work Phone: [facility] Work Phone: 10-16-2021 12:49-0500 Heart rate 75 /min Dr. Nadir Grady Work Phone: [facility] Work Phone: 10-16-2021 12:49-0500 Respiratory rate 16 /min Dr. Nadir Grady Work Phone: [facility] Work Phone: 10-16-2021 12:49-0500 SaO2% (BldA) [Mass fraction] 100 % Dr. Nadir Grady Work Phone: [facility] Work Phone: 10-16-2021 12:49-0500 Systolic blood pressure 138 mm[Hg] Dr. Nadir Grady Work Phone: [facility] Work Phone: 10-16-2021 10:03-0500 Body mass index (BMI) [Ratio] 24.5 kg/m2 Dr. Nadir Grady Work Phone: [facility] Work Phone: 10-16-2021 10:03-0500 Body temperature 97.7 [degF] Dr. Nadir Grady Work Phone: [facility] Work Phone: 10-16-2021 10:03-0500 Body weight 77.[address] Nadir Grady Work Phone: [facility] Work Phone: 08-16-2021 14:19-0500 Diastolic blood pressure 62 mm[Hg] Dr. Nadir Grady Work Phone: [facility] Work Phone: 08-16-2021 14:19-0500 Heart rate 59 /min Dr. Nadir Grady Work Phone: [facility] Work Phone: 08-16-2021 14:19-0500 Respiratory rate 16 /min Dr. Nadir Grady Work Phone: [facility] Work Phone: 08-16-2021 14:19-0500 SaO2% (BldA) [Mass fraction] 96 % Dr. Nadir Grady Work Phone: [facility] Work Phone: 08-16-2021 14:19-0500 Systolic blood pressure 124 mm[Hg] Dr. Nadir Grady Work Phone: [facility] Work Phone: 08-16-2021 09:30-0500 Body mass index (BMI) [Ratio] 24.5 kg/m2 Dr. Nadir Grady Work Phone: [facility] Work Phone: 08-16-2021 09:30-0500 Body temperature 98.4 [degF] Dr. Nadir Grady Work Phone: [facility] Work Phone: 08-16-2021 09:30-0500 Body weight 77.[address] Nadir Grady Work Phone: [facility] Work Phone: 02-07-2017 09:55-0400 BMI (Body Mass Index) 26.78 kg/m2 MD [facility] Work Phone: 02-07-2017 09:55-0400 BP Diastolic 62 mm[Hg] Jd Kern MD [facility] Work Phone: 02-07-2017 09:55-0400 BP Systolic 108 mm[Hg] Jd Kern MD [facility] Work Phone: 02-07-2017 09:55-0400 Height 180.34 cm Jd Kern MD [facility] Work Phone: 02-07-2017 09:55-0400 Pulse (Heart Rate) 78 /min Jd Kern MD [facility] Work Phone: 02-07-2017 09:55-0400 Respiratory Rate 18 /min Jd Kern MD [facility] Work Phone: 02-07-2017 09:55-0400 Weight 87.09 kg Jd Kern MD [facility] Work Phone: 01-08-2017 14:17-0400 Heart rate 81 /min Beulah Terrell RN [facility] [facility] [facility] Work Phone: 01-08-2017 13:55-0400 BMI (Body Mass Index) 27.05 kg/m2 Beulah Terrell RN [facility] [employer] Work Phone: 01-08-2017 13:55-0400 Body weight 88 kg Griselda Bell RN [facility] [employer] [facility] [facility] Work Phone: 01-08-2017 13:55-0400 BP Diastolic [...] 13:55-0400 Weight 88 kg Beulah Terrell RN [facility] Work Phone: Encounters Encounter Date Encounter Type Care Provider Facility Start: 03-08-2025 End: 03-08-2025 Telephone encounter Molly Houser APRN.CERTIFIED ANESTHESIOLOGIST ASSISTANT Work Phone: Neurology Start: 03-07-2025 End: 03-07-2025 Chart abstracting Nadir Grady MD Work Phone: [facility] [place] Comment on above: Abstract ([facility] ED vis it, without admission) Start: 03-05-2025 End: 03-05-2025 Emergency department patient visit Dr. Nadir Grady MD Work Phone: -Emergency Department Work Phone: Start: 03-03-2025 End: 03-03-2025 Telephone encounter Molly Houser APRN.CERTIFIED ANESTHESIOLOGIST ASSISTANT Work Phone: Neurology Start: 02-23-2025 End: 02-23-2025 Refill Nadir Grady MD Work Phone: [facility] [place] Comment on above: Refill Request Start: 02-22-2025 End: 02-22-2025 Chart abstracting Nadir Grady MD Work Phone: [facility] [place] Comment on above: Outside Cardiology Start: 02-22-2025 End: 02-22-[address] Jd Kern MD [facility] Work Phone: Start: 02-22-2025 End: 02-22-[address] Nadir Grady MD Work Phone: [facility] Work Phone: Start: 01-27-2025 End: 01-27-2025 Refill Nadir Grady MD Work Phone: [address] [place] [address] Comment on above: Refill Request Start: 01-18-2025 End: 01-18-2025 ambulatory [facility] Facility:[facility] Start: 01-18-2025 End: 01-18-2025 ambulatory [facility] Facility:[facility] Start: 12-23-2024 Non-patient / Non-visit Dr. Jered helton MD -[facility] Start: 12-23-2024 End: 12-23-[address] Nadir Grady MD Work Phone: [facility] Work Phone: Start: 12-23-2024 End: 12-23-2024 Patient encounter procedure Yolanda Dean PA -Cardiovascular Services Work Phone: Start: 12-23-2024 End: 12-23-2024 ambulatory Yolanda DENISE Facility:[facility] Start: 12-15-2024 End: 12-15-2024 ambulatory Nirav Wilson [facility] Work Phone: Pharmacy Medicine Start: 12-15-2024 End: 12-15-2024 Patient encounter procedure Nirav Wilson [facility] Work Phone: Pharmacy Medicine Comment on above: Care Coordination (P victoria Management Review for Pharmacist Referral for Diabetes Management) Start: 12-13-2024 End: 12-13-2024 ambulatory MOLLY HOUSER Facility:[facility] Start: 12-13-2024 End: 12-13-2024 Patient encounter procedure Molly Houser BRAILLE PROOFREADER.CERTIFIED ANESTHESIOLOGIST ASSISTANT Work Phone: Neurology Comment on above: Obstructive sleep ap kenji (Primary Dx); Insomnia, unspecified type; RLS (restless legs syndrome); Dream enactment behavior; Non-restorative sleep; Frequent nocturnal awakening Start: 12-08-2024 End: 12-08-2024 Patient encounter procedure Yolanda Dean [place] [facility] Work Phone: Start: 12-08-2024 End: 12-08-[address] Nadir Grady MD Work Phone: [facility] Work Phone: Start: 12-08-2024 End: 12-08-2024 ambulatory Nadir Grady Facility:[facility] Start: 11-15-2024 End: 11-16-2024 Telephone encounter Molly Houser APRN.CERTIFIED ANESTHESIOLOGIST ASSISTANT Work Phone: Neurology Comment on above: Results Start: 11-09-2024 End: 11-09-[address] Nadir Grady MD Work Phone: [facility] Work Phone: Start: 11-09-2024 End: 11-09-2024 Patient encounter procedure Molly Houser BRIQUETTE MAKER-C -Sleep Lab Work Phone: Start: 11-09-2024 End: 11-09-2024 ambulatory Molly Houser Facility:[facility] Start: 10-25-2024 End: 10-25-2024 Chart abstracting Nadir Grady MD Work Phone: [facility] Comment on above: Outside MRI Start: 10-25-2024 End: 10-25-2024 Ophthalmic examination and evaluation Nadir Grady MD Work Phone: [facility] Start: 10-23-2024 End: 10-23-[address] Hany Paz MD -MRI - [facility] Work Phone: Start: 10-22-2024 End: 10-22-2024 Patient encounter procedure Molly Houser APRN.CERTIFIED ANESTHESIOLOGIST ASSISTANT Work Phone: Neurology Comment on above: Dream enactment beha vior (Primary Dx); Snores; RLS (restless legs syndrome); Non-restorative sleep; Excessive daytime sleepiness; Chronic insomnia Start: 10-22-2024 End: 10-23-2024 ambulatory NADIR GRADY Facility:[facility] Start: 10-07-2024 End: 10-07-2024 Telephone encounter Martha Boston PA-C Work Phone: [facility] [place] Comment on above: Results Start: 10-07-2024 End: 10-07-2024 Subsequent hospital visit by physician Mri Radio [facility] Wstr (I-Stat/1.5t) Work Phone: Radiology Comment on above: Thunderclap headache [G44.53] Start: 10-07-2024 End: 10-07-2024 Office outpatient visit 25 minutes Martha Boston PA-C Work Phone: [facility] [place] Comment on above: Thunderclap headache (Primary Dx); New onset headache Start: 10-07-2024 End: 10-07-2024 ambulatory NADIR GRADY Facility:[facility] Start: 09-24-2024 End: 09-24-2024 Chart abstracting Nadir Grady MD Work Phone: [facility] [place] Comment on above: Outside Znyw-Tlz-RQF Ordered Start: 09-23-2024 End: 09-23-2024 Chart abstracting Nadir Grady MD Work Phone: [facility] [place] Comment on above: Outside Vsss-Itx-FWM Ordered Start: 09-22-2024 End: 09-22-2024 Chart abstracting Nadir Grady MD Work Phone: [facility] [place] Comment on above: Outside Imaging Start: 09-22-2024 End: 09-22-2024 E-mail encounter from caregiver Karen Piper [facility] Work Phone: [facility] Start: 09-22-2024 End: 09-22-2024 Patient encounter procedure Karen Piper [facility] Work Phone: [facility] Comment on above: Diabetes visit with pharmacist Start: 09-21-2024 End: 09-21-2024 Chart abstracting Nadir Grady MD Work Phone: [facility] Comment on above: Outside Gioi-Frf-FUX Ordered Start: 09-20-2024 End: 09-20-[address] Hany Paz MD -Laboratory Work Phone: Start: 09-20-2024 End: 09-20-2024 ambulatory Hany Paz Facility:[facility] Start: 09-08-2024 End: 09-08-2024 Patient encounter procedure Yolanda Dean MT -[facility] Work Phone: Start: 09-08-2024 End: 09-08-2024 ambulatory Nadir Grady [facility] Start: 09-06-2024 End: 09-06-2024 ambulatory NADIR GRADY Facility:[facility] Start: 09-06-2024 End: 09-06-2024 Subsequent hospital visit by physician Xr [facility] [place] Work Phone: Radiology Comment on above: Abnormal chest x-ray [R93.89] Start: 09-06-2024 End: 09-06-2024 Patient encounter procedure Nadir Grady MD Work Phone: [facility] Comment on above: S/P drug eluting cor onary stent placement (Primary Dx); Stable angina (HCC); Abnormal chest x-ray; Hypersomnolence; Snores; Sleep initiation dysfunction; Bilateral occipital neuralgia; Cervicogenic headache Start: 09-06-2024 End: 09-06-2024 ambulatory NADIR GRADY Facility:[facility] Start: 09-06-2024 End: 09-07-2024 Telephone encounter Nadir Grady MD Work Phone: [facility] Comment on above: Results Start: 08-27-2024 End: 08-27-2024 Emergency department patient visit Dr. Juan Luis Rubio DO -Emergency Department Work Phone: Start: 08-21-2024 End: 08-23-2024 Refill Nadir Grady MD Work Phone: [facility] [place] Comment on above: Refill Request Start: 08-17-2024 End: 08-17-2024 Chart abstracting Karla Wadsworth MA [facility] [place] Comment on above: Procedure (Outside r esult - Heart Cath ) Start: 08-17-2024 Non-patient / Non-visit Dr. Sanchez [facility] Start: 08-17-2024 ambulatory Mariposa Liya Facility:[facility] Start: 08-16-2024 End: 08-16-2024 Admission to same day surgery center Dr. Jd Kern MD -Savings Counselor/Special Procedures Work Phone: Start: 08-16-2024 ambulatory [facility] Start: 08-16-2024 End: 08-16-2024 ambulatory [facility] Facility:[facility] Start: 08-12-2024 End: 08-12-[address] [facility] Facility:[facility] Start: 08-12-2024 End: 08-12-2024 Patient encounter procedure Bridget Joseph BRAILLE PROOFREADER.CERTIFIED ANESTHESIOLOGIST ASSISTANT Work Phone: [facility] Comment on above: Adverse effect of ov [id number]-fphkidf medication, initial encounter (Primary Dx) Start: 08-10-2024 End: 08-10-2024 Telephone encounter Martha Boston PA-C Work Phone: [facility] [place] Comment on above: Results Start: 08-09-2024 End: 08-09-2024 ambulatory MARTHA BOSTON Facility:[facility] Start: 08-04-2024 End: 08-04-2024 Telephone encounter Karla Wadsworth MA [facility] [place] Comment on above: Patient Update Start: 07-30-2024 End: 07-30-2024 Chart abstracting Karla Wadsworth MA [facility] [place] Comment on above: Consult (Outside Car diology /) Results (Outside res ults ) Start: 07-28-2024 End: 07-28-2024 Patient encounter procedure Yolanda Dean PA -Laboratory Work Phone: Start: 07-28-2024 End: 07-28-2024 Patient encounter procedure [facility] Work Phone: Start: 07-28-2024 End: 07-28-2024 ambulatory Nadirsonal Grady Facility:[facility] Start: 07-28-2024 End: 07-28-2024 ambulatory Nadir Grady Facility:[facility] Start: 07-24-2024 End: 07-24-2024 Subsequent hospital visit by physician Ashley [facility] [place] Work Phone: Radiology Comment on above: Wrist pain, right [M 25.531] Start: 07-24-2024 End: 07-24-2024 ambulatory NADIR Ephraim RM Facility:[facility] Start: 07-24-2024 End: 07-24-2024 Patient encounter procedure Bridget Joseph APRN.CNP Work Phone: [facility] Comment on above: Wrist pain, right (P rimary Dx) Start: 07-21-2024 End: 07-21-2024 Telephone encounter Martha Boston PA-C Work Phone: [facility] Comment on above: Results Start: 07-20-2024 End: 07-20-2024 ambulatory MARTHA BOSTON Facility:[facility] Start: 07-20-2024 End: 07-20-2024 ambulatory MARTHA BOSTON Facility:[facility] Start: 07-20-2024 End: 07-20-2024 Patient encounter procedure Martha Boston PA-C Work Phone: [facility] [place] Comment on above: Medicare annual well ness visit, subsequent (Primary Dx); Advance directive discussed with patient; Type 2 diabetes mellitus with diabetic neuropathy, without long-term current use of insulin (HCC); Type 2 diabetes mellitus without complication, without long-term current use of insulin (HCC); Essential hypertension, benign; Uncontrolled type 2 diabetes mellitus with hyperglycemia (HCC); Mixed hyperlipidemia; Coronary atherosclerosis due to lipid rich plaque; Adjustment disorder with depressed mood; Anemia of chronic disease; Screening for depression; Encounter for screening examination for other mental health and behavioral disorders; Weight loss Start: 06-14-2024 ambulatory Ez Hurst [facility] Start: 06-14-2024 End: 06-14-2024 ambulatory Nadir Grady Facility:[facility] Start: 05-28-2024 End: 05-28-2024 ambulatory Nadir Grady Facility:[facility] Start: 04-19-2024 End: 04-19-2024 Chart abstracting Nadir Grady MD Work Phone: [facility] Comment on above: Outside Cardiology Start: 04-19-2024 End: 04-19-2024 ambulatory Nadir Grady Facility:[facility] Start: 04-11-2024 ambulatory Ez Aris Facility:[facility] Start: 03-10-2024 ambulatory Dell Posey [facility] Start: 03-10-2024 Patient encounter procedure Dell Posey [place] [facility] Comment on above: Population Health Na vigation Outreach ([facility] Start: 02-20-2024 Refill Nadir valladares MD Work Phone: [address] [place] [address] Comment on above: Refill Request Start: 01-21-2024 Refill Franny pagan APRN.CNP Work Phone: [facility] Comment on above: Refill Request Start: 12-30-2023 Chart abstracting Nadir pope MD Work Phone: [facility] Comment on above: Ext / [facility] Start: 12-30-2023 End: 12-30-[address] Nadir Grady Work Phone: [facility] Work Phone: Start: 12-29-2023 End: 12-30-[address] Nadir Grady Work Phone: [facility] Work Phone: Start: 12-29-2023 End: 12-30-[address] Nadir Grady Work Phone: [facility]-Cardiac Rehab Work Phone: Start: 12-22-2023 End: 12-22-2023 Subsequent hospital visit by physician Xr [facility] Work Phone: Radiology Comment on above: Left forearm pain [M 79.632] Start: 12-22-2023 End: 12-22-2023 Patient encounter procedure Karin Hamm APRN.CERTIFIED ANESTHESIOLOGIST ASSISTANT Work Phone: [facility] Comment on above: Left forearm pain (P rimary Dx); Hand pain, left; Contusion of left forearm, initial encounter Start: 12-05-2023 Chart abstracting Nadir pope MD Work Phone: [facility] Comment on above: External / ER Report & H&P hospitalist Start: 12-04-2023 Non-patient / Non-visit Dr. Rajesh Grady Work Phone: [facility] Start: 12-04-2023 Chart abstracting Nadir pope MD Work Phone: [facility] Comment on above: External / [facility] EKG Start: 12-04-2023 Non-patient / Non-visit Dr. Rajesh Grady Work Phone: [facility] Work Phone: Start: 12-03-2023 End: 12-03-2023 Non-patient / Non-visit Dr. Nadir Grady Work Phone: [facility] Work Phone: Start: 12-03-2023 Non-patient / Non-visit Dr. Rajesh Grady Work Phone: [facility] Work Phone: Start: 12-03-2023 End: 12-04-2023 Evaluation and management of inpatient Dr. Nadir Grady Work Phone: [facility]Progressive Care Unit Work Phone: Start: 12-03-2023 End: 12-04-[address] Nadir Grady Work Phone: [facility] Work Phone: Start: 12-01-[address] Mar Grady Work Phone: [facility]Card[facility] Work Phone: Start: 11-28-2023 End: 11-30-[address] Nadir Grady Work Phone: [facility] Work Phone: Start: 11-28-2023 End: 11-30-[address] Nadir Grady Work Phone: [facility] Work Phone: Start: 11-28-[address] Mar Grady Work Phone: [facility] Work Phone: Start: 11-24-2023 End: 11-24-2023 Admission to same day surgery center Dr. Nadir Grady Work Phone: [facility] Counselor/Special Procedures Work Phone: Start: 11-24-2023 End: 11-24-[address] Nadir Grady Work Phone: [facility] Work Phone: Start: 11-19-2023 End: 11-19-[address] Nadir Grady Work Phone: [facility] Work Phone: Start: 11-19-2023 End: 11-19-[address] Nadir Grady Work Phone: [facility] Work Phone: Start: 11-18-2023 Non-patient / Non-visit Dr. Rajesh Grady Work Phone: [facility] Work Phone: Start: 11-11-2023 Non-patient / Non-visit Dr. Rajesh Grady Work Phone: [facility] Start: 11-11-2023 End: 11-11-[address] Nadir Grady Work Phone: [facility] Work Phone: Start: 10-30-2023 Chart abstracting Nadir pope MD Work Phone: [facility] Comment on above: outside cardiology Start: 10-30-2023 End: 10-30-[address] Nadir Grady Work Phone: [facility] Work Phone: Start: 10-24-2023 Chart abstracting Mynor Rasmussen LPN [facility] Comment on above: [facility] ER report 4 Start: 10-23-2023 Chart abstracting Luis E Cabrera [facility] Comment on above: Outside Imaging Start: 10-23-2023 End: 10-23-2023 Emergency department patient visit Dr. Nadir Grady Work Phone: [facility]Emergency Department Work Phone: Start: 10-23-2023 End: 10-23-2023 Patient encounter procedure Ruthann Wadsworth APRN.CERTIFIED ANESTHESIOLOGIST ASSISTANT Work Phone: [facility] Comment on above: Lip swelling (Primar y Dx) Start: 10-16-2023 Chart abstracting Nadir pope MD Work Phone: [facility] Comment on above: ER Discharge Summary (X-ray) Start: 10-15-2023 End: 10-15-2023 Emergency department patient visit Dr. Nadir Grady Work Phone: [facility]Emer[facility] Department Work Phone: Start: 10-14-2023 ambulatory Nadir valladares MD Work Phone: [facility] [place] Start: 10-13-2023 Non-patient / Non-visit Dr. Rajesh Grady Work Phone: [facility] Start: 10-13-2023 End: 10-13-[address] Nadir Grady Work Phone: [facility] Work Phone: Start: 10-11-2023 Chart abstracting Nadir pope MD Work Phone: [facility] Comment on above: Outside Cardiology ( Cardiac Cath, Echo) Start: 10-11-2023 Non-patient / Non-visit Dr. Rajesh Grady Work Phone: [facility] Work Phone: Start: 10-11-2023 Non-patient / Non-visit Dr. Rajesh Grady Work Phone: [facility] Start: 10-10-2023 Non-patient / Non-visit Dr. Rajesh Grady Work Phone: [facility] Start: 10-10-2023 Chart abstracting Nadir pope MD Work Phone: [facility] Comment on above: ER Discharge Summary (X-ray, H&P) Start: 10-09-2023 End: 10-09-2023 Non-patient / Non-visit Dr. Nadir Grady Work Phone: [facility] Work Phone: Start: 10-09-2023 Non-patient / Non-visit Dr. Rajesh Grady Work Phone: [facility] Work Phone: Start: 10-09-2023 End: 10-11-2023 Evaluation and management of inpatient Dr. Nadir Grady Work Phone: [facility] Work Phone: Start: 07-10-2023 End: 07-10-[address] Nadir Grady Work Phone: [facility] Work Phone: Start: 06-26-2023 End: 06-26-2023 Patient encounter procedure Fer Merrill COLLETTE.CERTIFIED ANESTHESIOLOGIST ASSISTANT Work Phone: [facility] Comment on above: Mouth pain (Primary Dx) Refill Request Start: 06-26-2023 Telephone encounter Nadir Grady MD Work Phone: [facility] Comment on above: Medication Problem Start: 06-19-2023 Telephone encounter Franny K afia BRAILLE PROOFREADER.CERTIFIED ANESTHESIOLOGIST ASSISTANT Work Phone: [facility] Comment on above: Results Start: 06-19-2023 End: 06-19-2023 Patient encounter procedure Odin Reyes MD Work Phone: [facility] Comment on above: Patient left without being seen (Primary Dx); SOB (shortness of breath) Start: 06-09-2023 Non-patient / Non-visit Dr. Rajesh Grady Work Phone: [facility] Heart [facility] Work Phone: Start: 06-06-2023 Non-patient / Non-visit Dr. Rajesh Grady Work Phone: [facility] Start: 06-06-2023 End: 06-06-[address] Nadir Grady Work Phone: [facility] Work Phone: Start: 06-06-2023 End: 06-06-[address] Nadir Grady Work Phone: [facility]Cardiovascula r Services Work Phone: Start: 05-16-2023 Chart abstracting Nadir pope MD Work Phone: [facility] Comment on above: Outsude cardiology Start: 05-15-2023 End: 05-15-[address] Nadir Grady Work Phone: [facility] Work Phone: Start: 04-11-2023 Telephone encounter Fer heller BRAILLE PROOFREADER.CERTIFIED ANESTHESIOLOGIST ASSISTANT Work Phone: [facility] Comment on above: Results Start: 04-04-2023 Telephone encounter Fer Medina arron BRAILLE PROOFREADER.CERTIFIED ANESTHESIOLOGIST ASSISTANT Work Phone: [facility] Comment on above: Results Start: 04-02-2023 Telephone encounter Ruthann Wadsworth BRAILLE PROOFREADER.CERTIFIED ANESTHESIOLOGIST ASSISTANT Work Phone: [facility] Comment on above: Results Start: 04-01-2023 End: 04-01-2023 Patient encounter procedure Blanca Lee PA-C Work Phone: [facility] Comment on above: Mouth sores (Primary Dx) Refill Request Start: 03-10-2023 End: 03-10-2023 Patient encounter procedure Ute Shine BRAILLE PROOFREADER.CERTIFIED ANESTHESIOLOGIST ASSISTANT Work Phone: [facility] Comment on above: Rash (Primary Dx) Start: 02-04-2023 Telephone encounter Martha pichardo PA-C Work Phone: [facility] [place] Comment on above: Other Refill Request Start: 01-07-2023 Refill Odalis Knutson PSS 4C Ins titute Comment on above: Refill Request Start: 11-29-2022 Telephone encounter Martha pichardo PA-C Work Phone: [facility] [place] Comment on above: Results Start: 11-28-2022 End: 11-28-2022 Patient encounter procedure Martha Boston PA-C Work Phone: [facility] [place] Comment on above: Medicare annual well ness visit, subsequent (Primary Dx); Advance directive discussed with patient; Type 2 diabetes mellitus with diabetic neuropathy, without long-term current use of insulin (HCC); Uncontrolled type 2 diabetes mellitus with hyperglycemia (HCC); Essential hypertension, benign; Mixed hyperlipidemia; Chronic post-traumatic headache, not intractable; Iron deficiency anemia, unspecified iron deficiency anemia type; Disorder of prostate; Coronary atherosclerosis due to lipid rich plaque; GERD without esophagitis Start: 11-21-2022 End: 11-21-2022 Patient encounter procedure Jenna Jim APRN.CERTIFIED ANESTHESIOLOGIST ASSISTANT Work Phone: Neurology Comment on above: Syncope, unspecified syncope type (Primary Dx); Orthostatic hypotension Start: 11-12-2022 End: 11-12-2022 Patient encounter procedure Fer Merrill COLLETTE.CERTIFIED ANESTHESIOLOGIST ASSISTANT Work Phone: [facility] Comment on above: Rhus dermatitis (Valeria yovanny Dx) Start: 11-08-2022 Telephone encounter Lemuel Troy MD Work Phone: Neurology Comment on above: Appointment Start: 11-05-2022 Refill Nadir valladares MD Work Phone: [facility] [place] Comment on above: Refill Request Start: 10-29-2022 End: 10-29-2022 Patient encounter procedure Jennifer Pavon PA-C Work Phone: General Surgery Comment on above: Long-segment Santos 's esophagus (Primary Dx); Hiatal hernia; Diverticulosis; Other gastritis without bleeding Start: 10-23-2022 Chart abstracting Nadir pope MD Work Phone: [facility] [place] Comment on above: Consult (Consult Car diology ) Start: 10-14-2022 ambulatory HANY JOHNSON Facility:[facility] Start: 10-14-2022 End: 10-14-2022 Subsequent hospital visit by physician Thai Santiago MD Work Phone: [facility] Endoscopy Comment on above: Anemia, unspecified type [D64.9] Start: 10-04-2022 End: 10-04-2022 Patient encounter procedure Nadir Grady MD Work Phone: [facility] [place] Comment on above: Type 2 diabetes ben itus with diabetic neuropathy, without long-term current use of insulin (HCC) (Primary Dx); Essential hypertension, benign Start: 10-02-2022 Refill Nadir valladares MD Work Phone: [facility] [place] Comment on above: Refill Request Start: 09-24-2022 Telephone encounter Nadir Grady MD Work Phone: [facility] [place] Comment on above: Medication Question Start: 09-23-2022 End: 09-23-2022 Subsequent hospital visit by physician Ashley [facility] [place] Work Phone: Radiology Comment on above: Foot injury, left, i nitial encounter [S99.922A] Start: 09-23-2022 End: 09-23-2022 Patient encounter procedure Miladys Butt BRAILLE PROOFREADER.CERTIFIED ANESTHESIOLOGIST ASSISTANT Work Phone: [facility] Comment on above: Foot injury, left, i nitial encounter (Primary Dx) Start: 09-19-2022 End: 09-19-2022 Patient encounter procedure Jenna Jim BRAILLE PROOFREADER.CERTIFIED ANESTHESIOLOGIST ASSISTANT Work Phone: Neurology Comment on above: Syncope, unspecified syncope type (Primary Dx); Orthostatic hypotension Start: 09-05-2022 Telephone encounter Nadir Grady MD Work Phone: [facility] [place] Comment on above: low blood pressure Start: 08-30-2022 Refill Nadir valladares MD Work Phone: [facility] [place] Comment on above: Refill Request Start: 08-28-2022 Telephone encounter Nadir Grady MD Work Phone: [facility] [place] Comment on above: Patient Update Start: 08-22-2022 Telephone encounter Nadir Grady MD Work Phone: [facility] Comment on above: Patient Update Start: 08-21-2022 Telephone encounter Nadir Grady MD Work Phone: [facility] [place] Comment on above: Results Start: 08-21-2022 End: 08-21-2022 Patient encounter procedure Nadir Grady MD Work Phone: [facility] [place] Comment on above: Dizziness (Primary D x); Tremor; Hypotension, unspecified hypotension type; Panic disorder; Situational depression; Atypical chest pain; Iron deficiency anemia, unspecified iron deficiency anemia type Start: 08-06-2022 Refill Nadir valladares MD Work Phone: [facility] [place] Comment on above: Refill Request Start: 08-05-2022 End: 08-05-2022 Patient encounter procedure Mike Jazmine MD Work Phone: Urology Comment on above: Bladder wall thicken ing (Primary Dx); Benign non-nodular prostatic hyperplasia without lower urinary tract symptoms Start: 07-30-2022 End: 07-30-2022 Patient encounter procedure Franny Catalan APRN.CERTIFIED ANESTHESIOLOGIST ASSISTANT Work Phone: [facility] [place] Comment on above: Type 2 diabetes ben itus with diabetic neuropathy, without long-term current use of insulin (HCC) (Primary Dx) Start: 07-29-2022 Telephone encounter Nadir Grady MD Work Phone: [facility] [place] Comment on above: Appointment Start: 07-12-2022 Telephone encounter Mike kim MD Work Phone: Urology Comment on above: Patient Update; Appo intment Start: 07-11-2022 Telephone encounter Marthaelissa paganon PA-C Work Phone: [facility] [place] Comment on above: Results Start: 07-10-2022 Telephone encounter Martha paganon PA-C Work Phone: [facility] [place] Comment on above: Results Consult Start: 07-09-2022 End: 07-09-2022 [facility] Comment on above: Abnormal weight loss [R63.4] Start: 07-05-2022 Refill Martha Randall on PA-C Work Phone: [facility] [place] Comment on above: Refill Request Start: 07-02-2022 Telephone encounter Martha paganon PA-C Work Phone: [facility] [place] Comment on above: Results Start: 07-01-2022 End: 07-01-2022 Subsequent hospital visit by physician [facility] Work Phone: Radiology Comment on above: Abnormal weight loss [R63.4] Start: 06-27-2022 Telephone encounter Martha paganon PA-C Work Phone: [facility] [place] Comment on above: Results Start: 06-27-2022 End: 06-27-2022 Patient encounter procedure Thai Santiago MD Work Phone: General Surgery Comment on above: Anemia, unspecified type Start: 06-26-2022 Telephone encounter Martha pichardo PA-C Work Phone: [facility] [place] Comment on above: Results Start: 06-25-2022 Telephone encounter Nadir Grady MD Work Phone: [facility] [place] Comment on above: [facility] Start: 06-25-2022 End: 06-25-2022 Subsequent hospital visit by physician Xr [facility] [place] Work Phone: Radiology Comment on above: Abnormal weight loss [R63.4] Start: 06-25-2022 End: 06-25-2022 Patient encounter procedure Martha Boston PA-C Work Phone: [facility] [place] Comment on above: Abnormal weight loss (Primary Dx); Muscle mass; Intractable chronic post-traumatic headache; Neuropathy; Situational depression; Fatigue, unspecified type; Myalgia Start: 06-18-2022 Telephone encounter Nadir Grady MD Work Phone: [facility] [place] Comment on above: Medication Problem; Patient Update Start: 05-30-2022 Telephone encounter Rin ricardo BRAILLE PROOFREADER.CERTIFIED ANESTHESIOLOGIST ASSISTANT Work Phone: Neurology Comment on above: Medication Problem Start: 05-29-2022 Telephone encounter Nadir Grady MD Work Phone: [facility] Comment on above: requesting A1C resul ts Start: 05-28-2022 End: 05-28-2022 Emergency department patient visit Dr. Nadir Grady Work Phone: [facility]Emergency Department Start: 05-28-2022 End: 05-28-2022 Patient encounter procedure Karin Hamm APRN.CERTIFIED ANESTHESIOLOGIST ASSISTANT Work Phone: [facility] Comment on above: Injury of head, init ial encounter (Primary Dx); LOC (loss of consciousness) (HCC) Start: 05-28-2022 Telephone encounter Nadir Grady MD Work Phone: [facility] Comment on above: Patient Update Start: 05-20-2022 Telephone encounter Nadir Grady MD Work Phone: [facility] Comment on above: Medication concern; Medication Problem Start: 05-14-2022 Telephone encounter Martha pichardo PA-C Work Phone: [facility] Comment on above: Results Start: 05-13-2022 End: 05-13-2022 Patient encounter procedure Martha Boston PA-C Work Phone: [facility] Comment on above: Encounter for immuni zation (Primary Dx); Type 2 diabetes mellitus with diabetic neuropathy, without long-term current use of insulin (HCC); Essential hypertension, benign; Mixed hyperlipidemia; Coronary atherosclerosis due to lipid rich plaque; GERD without esophagitis; Carotid stenosis, asymptomatic, bilateral; Migraine variant; Adjustment disorder with depressed mood Start: 05-03-2022 Refill Nadir valladares MD Work Phone: [facility] Comment on above: Refill Request Start: 05-01-2022 Telephone encounter Nadir Grady MD Work Phone: [facility] Comment on above: Medication Question Start: 04-27-2022 ambulatory Nadir valladares MD Work Phone: [facility] Comment on above: Discontinue amitript yline 150mg Start: 04-26-2022 Telephone encounter Nadir Grady MD Work Phone: [facility] Comment on above: Patient Update Start: 04-25-2022 End: 04-25-2022 Patient encounter procedure Rin Gagnon APRN.CERTIFIED ANESTHESIOLOGIST ASSISTANT Work Phone: Neurology Comment on above: Orthostatic hypotens ion (Primary Dx); Occipital neuralgia of right side; Neuropathy; Syncope and collapse Start: 04-24-2022 End: 04-24-[address] Nadir Grady Work Phone: [facility] Work Phone: Start: 04-24-2022 End: 04-24-[address] Nadir Grady Work Phone: [facility]Medical Out Start: 04-19-2022 End: 04-19-[address] Nadir Grady Work Phone: [facility] Start: 04-19-2022 End: 04-19-2022 Office outpatient visit 25 minutes Martha Boston PA-C Work Phone: [facility] Comment on above: Situational depressi on (Primary Dx); Panic disorder Start: 04-17-2022 End: 04-17-[address] Nadir Grady Work Phone: [facility]-Laboratory Start: 04-15-2022 End: 04-15-[address] Nadir Grady Work Phone: [facility] Endocrinology Start: 04-08-2022 Telephone encounter Jenna Lazo APRN.CERTIFIED ANESTHESIOLOGIST ASSISTANT Work Phone: Neurology Comment on above: Patient Question Start: 04-03-2022 Refill Rashawn SIDHU RN.CERTIFIED ANESTHESIOLOGIST ASSISTANT Work Phone: [facility] Comment on above: Refill Request Start: 03-25-2022 Refill Nadir valladares MD Work Phone: [facility] Comment on above: Refill Request Start: 03-22-2022 End: 03-22-2022 Emergency department patient visit Dr. Nadir Grady Work Phone: [facility]-Emergency Department Start: 03-20-2022 Telephone encounter Jenna Lazo APRN.CERTIFIED ANESTHESIOLOGIST ASSISTANT Work Phone: Neurology Comment on above: Results - Ct Start: 03-19-2022 End: 03-19-2022 Subsequent hospital visit by physician Ct [facility] (I-Stat) Work Phone: Cat Scan Comment on above: Injury of head, init ial encounter [S09.90XA] Start: 03-18-2022 Telephone encounter Jenna Lazo APRN.CERTIFIED ANESTHESIOLOGIST ASSISTANT Work Phone: Neurology Comment on above: Patient Update (Rece nt fall) Start: 02-26-2022 Refill Nadir valladares MD Work Phone: Family [facility] Comment on above: Refill Request (SEE RX NOTE) Start: 02-19-2022 Telephone encounter Lemuel Troy MD Work Phone: [facility] [place] Comment on above: Question Start: 02-13-[address] Mar Grady Work Phone: [facility] Start: 02-11-2022 End: 02-11-2022 Admission to same day surgery center Dr. Nadir Grady Work Phone: [facility] Counselor/Special Procedures Start: 02-11-2022 Non-patient / Non-visit Dr. Rajesh Grady Work Phone: [facility] Start: 02-07-2022 End: 02-07-2022 Patient encounter procedure Jenna Jim BRAILLE PROOFREADER.CERTIFIED ANESTHESIOLOGIST ASSISTANT Work Phone: Neurology Comment on above: Syncope, unspecified syncope type (Primary Dx); Orthostatic hypotension; Facial numbness; Injury of head, sequela; Chronic post-traumatic headache, not intractable Start: 02-04-2022 End: 02-04-[address] Nadir Grady Work Phone: [facility]Labor[facility] Start: 01-31-2022 Non-patient / Non-visit Dr. Rajesh Grady Work Phone: [facility] Start: 01-30-2022 Refill Nadir valladares MD Work Phone: Family [facility] Comment on above: Refill Request Start: 01-24-2022 Telephone encounter Nadir Grady MD Work Phone: [facility] Comment on above: Release Of Medical R ecords Start: 01-18-2022 Non-patient / Non-visit Dr. Rajesh Grady Work Phone: [facility] Start: 01-18-2022 End: 01-18-[address] [facility] Start: 01-17-2022 End: 01-17-[address] Nadir Grady Work Phone: [facility] Start: 01-04-2022 Chart abstracting Nadir pope MD Work Phone: [facility] Comment on above: outside cardiology Start: 01-04-2022 End: 01-04-[address] Nadir Grady Work Phone: [facility] Start: 01-01-2022 Non-patient / Non-visit Dr. Rajesh Grady Work Phone: [facility] Start: 12-30-2021 End: 12-30-[address] Nadir Grady Work Phone: [facility] Start: 12-29-2021 End: 12-29-2021 Emergency department patient visit Dr. Nadir Grady Work Phone: [facility]Emergency Department Start: 12-26-2021 End: 12-26-[address] Nadir Grady Work Phone: [facility] Start: 12-20-2021 End: 12-20-[address] Nadir Grady Work Phone: [facility] Start: 12-18-2021 End: 12-18-[address] Nadir Grady Work Phone: [facility] Start: 12-13-2021 Telephone encounter Karen castillo [facility] Work Phone: [facility] Comment on above: Medication Problem Start: 12-13-2021 End: 12-13-2021 Admission to same day surgery center Dr. Nadir Grady Work Phone: [facility] Counselor/Special Procedures Start: 11-22-2021 Telephone encounter Nadir Grady MD Work Phone: [facility] Comment on above: Results Start: 11-12-2021 End: 11-12-[address] Nadir Grady Work Phone: [facility] Start: 11-08-2021 Patient encounter procedure Nadir Grady MD Work Phone: [facility] Work Phone: Start: 11-02-2021 End: 11-02-2021 Emergency department patient visit Dr. Nadir Grady Work Phone: [facility]Emergency Department Start: 10-18-2021 End: 10-18-[address] Nadir Grady Work Phone: [facility]-Pulmonary Services/Neurology Start: 10-16-2021 End: 10-16-2021 Emergency department patient visit Dr. Nadir Grady Work Phone: [facility]Emergency Department Start: 10-16-2021 Non-patient / Non-visit Dr. Rajesh Grady Work Phone: [facility] Start: 08-16-[address] Nadir Grady Work Phone: [facility]-Immunizations Start: 06-29-2021 Telephone encounter Ade hollins APRN.CNP Work Phone: [facility] Comment on above: Results Start: 06-27-2021 End: 06-27-2021 Subsequent hospital visit by physician Xr [facility] Work Phone: Radiology Comment on above: SOB (shortness of br eath) [R06.02] Start: 01-09-2021 Ophthalmic examinati on and evaluation Nadir Grady MD Work Phone: [facility] Start: 10-09-2020 End: 10-09-2020 Subsequent hospital visit by physician Xr [facility] [place] Work Phone: Radiology Comment on above: Acute pain of right shoulder [M25.511] Start: 09-08-2020 End: 09-08-2020 Subsequent hospital visit by physician Xr [facility] [place] Work Phone: Radiology Comment on above: Rib pain on left eulalio e [R07.81] Start: 09-10-2017 End: 09-10-2017 Evaluation and management of inpatient SELENE WILBURN Facility:[facility] Start: 10-03-2016 End: 04-12-2020 Patient encounter status Karin Hamm BRAILLE PROOFREADER.CERTIFIED ANESTHESIOLOGIST ASSISTANT Work Phone: [facility] Procedures Date Procedure Procedure Detail Performing Clinician Start: 03-05-2025 Plain chest X-ray Dr. Nadir Grady MD Work Phone: Start: 03-05-[address] Mar Grady MD Work Phone: Start: 12-08-2024 Evaluation of diagnostic study results Dr. Nadir Grady MD Work Phone: Start: 10-23-2024 MRI of cervical spine Dr. Nadir Grady MD Work Phone: Start: 10-07-2024 Mri brain brain stem w/o w/contrast material Martha Boston PA-C Work Phone: Start: 09-20-2024 X-ray of cervical spine Dr. Nadir valladares MD Work Phone: Start: 09-06-2024 Radiologic exam chest 2 views Nadir Grady MD Work Phone: Start: 08-27-[address] Donal Grady MD Work Phone: Start: 08-27-[address] Nadir valladares MD Work Phone: Start: 08-27-[address] Nadir Grady MD Work Phone: Start: 08-27-2024 Ova OR parasites identification Dr. Donal Grady MD Work Phone: Start: 08-27-2024 CT of abdomen and pelvis without contrast Dr. Nadir Grady MD Work Phone: Start: 08-27-2024 Plain chest X-ray Dr. Nadir Grady MD Work Phone: Start: 08-16-2024 History of placement of stent for coronary artery disease History of coronary artery stent placement Yolanda DENISE Comment on above: PCI-RODDY-Mid LAD w/ 2.5 x 16 mm Synergy S tent and RODDY-Mid Ramus w/ 2.25 x 16 mm Synergy MR 01/20/2017; EAE-NUW-Bivjhe LCx w/ 2.25 x 08 mm Synergy MR Stent 05/10/2020; BCQ-KRG-Qrfq LCx w/ 2.5 x 12 mm Synergy Stent 11/20/20; PCI-RODDY-Mid RCA w/ 3.0 x 9 mm Orsiro Stent and POBA- distal RCA 04/26/21; QZP-QEM-WRE-Prox LCx w/ 2.5 x 9 mm Orsiro Stent 07/23/21, PTCA/RODDY Prox and Mid RCA using Bolt and RODDY distal RCA using Drake Yalobusha 3.0x12 mm, 2.5x12 mm and 2.5x8 mm 10/10/23; 3.5 X 12 Bolt Yalobusha RODDY to Proximal RCA Start: 07-28-2024 X-ray of chest, PA and lateral views Dr. Nadir Grady MD Work Phone: Start: 07-28-2024 Evaluation of diagnostic study results Dr. Nadir Grady MD Work Phone: Start: 07-24-2024 Radex wrist complete minimum 3 views Bridget Gwendolyn BRAILLE PROOFREADER.CERTIFIED ANESTHESIOLOGIST ASSISTANT Work Phone: Start: 07-20-2024 Adult depression screening assessment Martha Boston PA-C Work Phone: Start: 12-22-2023 Radex forearm 2 views Karin Hamm BRAILLE PROOFREADER.CERTIFIED ANESTHESIOLOGIST ASSISTANT Work Phone: Start: 12-04-2023 Cardiovascular stress test using pharmacologic stress agent Dr. Nadir Grady Work Phone: Start: 12-03-2023 Plain chest X-ray Dr. Nadir Grady Work Phone: Start: 10-23-2023 Plain chest X-ray Dr. Nadir Grady Work Phone: Start: 10-15-2023 Plain chest X-ray Dr. Nadir Grady Work Phone: Start: 10-10-2023 History of placement of stent for coronary artery disease History of coronary artery stent placement Dr. Nadir Grady Work Phone: Start: 10-09-2023 Plain chest X-ray Dr. Nadir Grady Work Phone: Start: 06-06-2023 Cardiovascular stress test using pharmacologic stress agent Dr. Nadir Grady Work Phone: Start: 10-14-2022 Esophagogastroduodenoscopy transoral diagnostic Thai Santiago MD Work Phone: Start: 10-14-2022 Colonoscopy flx dx w/collj spec when pfrmd Thai Santiago MD Work Phone: Start: 10-14-2022 End: 10-14-2022 Gluc bld gluc mntr dev cleared fda spec home use Hany Johnson MD Work Phone: Start: 10-14-2022 Colonoscopy Thai Santiago MD Work Phone: Start: 09-23-2022 Radex foot complete minimum 3 views Miladys Butt BRAILLE PROOFREADER.CERTIFIED ANESTHESIOLOGIST ASSISTANT Work Phone: Start: 08-05-2022 Urnls dip stick/tablet rgnt auto w/o microscopy Mike Lucero MD Work Phone: Start: 07-09-2022 Ct abdomen & pelvis w/contrast material Martha Boston PA-C Work Phone: Start: 07-09-2022 Ct thorax w/contrast material Martha pichardo PA-C Work Phone: Start: 07-01-2022 Us abdominal real time w/image limited Martha DENISE-C Work Phone: Start: 06-25-2022 Radiologic exam chest 2 views Martha pichardo PA-C Work Phone: Start: 05-28-2022 Plain chest X-ray Dr. Nadir Grady Work Phone: Start: 05-28-2022 X-ray of both feet Dr. Nadir Grady Work Phone: Start: 05-28-2022 CT of head without contrast Dr. Nadir Grady Work Phone: Start: 05-13-2022 INFLUENZA SEASONAL QUADRIVALENT HIGH DOSE AGE 65+ Martha DENISE-C Work Phone: Start: 04-17-2022 Lipid panel [facility] Provider Start: 03-22-2022 CT angiography of head and neck Dr. Donal Grady Work Phone: Start: 03-22-2022 X-ray of lumbosacral spine Dr. Nadir ivdal Work Phone: Start: 03-22-2022 CT of head without contrast Dr. Nadir Grady Work Phone: Start: 03-19-2022 Ct head/brain w/o contrast material Jenna Jim APRNJOHNIE Work Phone: Start: 02-04-2022 Plain chest X-ray Dr. Nadir Grady Work Phone: Start: 01-18-2022 Cardiovascular stress test using pharmacologic stress agent Dr. Nadir Grady Work Phone: Start: 12-13-2021 H/O: surgery History of loop recorder Dr. Nadir Grady Work Phone: Comment on above: FOR SYNCOPE 10/2021 Start: 11-02-2021 CT of head without contrast Dr. Nadir Grady Work Phone: Start: 10-16-2021 SARS-CoV-2 Antigen (Rapid) Dr. Nadir vidal Work Phone: Start: 10-16-2021 CT of head without contrast Dr. Nadir Grady Work Phone: Start: 10-16-2021 CT cervical spine without contrast Dr. Devora Grady Work Phone: Start: 07-23-2021 History of placement of stent for coronary artery disease History of coronary artery stent placement Dr. Nadir Grady Work Phone: Start: 06-27-2021 Radiologic exam chest 2 views Ade Podsohail hollins BRAILLE PROOFREADER.CERTIFIED ANESTHESIOLOGIST ASSISTANT Work Phone: Start: 10-09-2020 Radex shoulder complete minimum 2 views Juan Luis Lynn BRAILLE PROOFREADER.CERTIFIED ANESTHESIOLOGIST ASSISTANT, DNP Work Phone: Start: 09-08-2020 Radiologic exam chest 2 views Bruce obregon BRAILLE PROOFREADER.CERTIFIED ANESTHESIOLOGIST ASSISTANT Work Phone: Start: 02-07-2017 End: 02-10-2017 *Hepatic Function Panel Abdirahman Solano Start: 02-07-2017 End: 02-07-2017 Follow Up Appt 6 months Abdirahman Solano Start: 02-07-2017 End: 02-10-2017 Lipid panel [AGGREGATE] Abdirahman Solano Start: 02-07-2017 End: 02-07-2017 MMM dJ Kern MD Start: 01-20-2017 History of placement [...] Jd Kern MD Start: 01-08-2017 End: 02-07-2017 TRANSIT MIX OPERATOR Jd Kern MD Start: 01-08-2017 End: 01-16-2017 Echocardiography Jd Kern MD Start: 01-08-2017 End: 02-10-2017 Electrocardiogram, complete Jd Locke i, MD Start: 01-08-2017 End: 02-07-2017 Follow Up Appt 3 months Abdirahman Solano Start: 01-08-2017 End: 02-10-2017 Left Heart Cath Jd Kern MD History of placement of stent for coronary artery disease S/P drug eluting coronary stent placement Nadir Grady MD Work Phone: Plan of Treatment Date Care Activity Detail Author Start: 10-14-2032 Colonoscopy COLONOSCOPY [facility] Start: 10-14-2032 COLORECTAL CANCER SCREENING COLORECTAL CANCER SCREENING [facility] Start: 10-14-2032 Screening for malign ant neoplasm of colon [facility] Start: 03-01-2031 Urine microalbumin profile [facility] Start: 10-18-2029 Urine microalbumin profile DTA P,TDAP,TD (3 - Td or Tdap) [facility] Start: 11-02-2026 PROSTATE CANCER SCRE ENING DISCUSSION PROSTATE CANCER SCREENING DISCUSSION [facility] Start: 01-18-2026 Annual PCP Team License Registration Examiner bernarda Disease Visit Annual PCP Team Chronic Disease Visit [facility] Start: 01-18-2026 BP Controlled (<130/80) BP Controlle d (<130/80) [facility] Start: 01-18-2026 Diabetic foot examination Diabetic F oot Exam [facility] Start: 01-18-2026 Hepatitis B screening Urine Albumin:Creatinine Ratio [facility] Start: 01-18-2026 Hepatitis B surface antibody level LDL Cholesterol [facility] Start: 10-25-2025 Glaucoma screening Dilated Retinal E xam [facility] Start: 10-07-2025 Annual PCP Team License Registration Examiner bernarda Disease Visit Annual PCP Team Chronic Disease Visit [facility] Start: 10-07-2025 BP Controlled (<130/80) BP Controlle d (<130/80) [facility] Start: 09-06-2025 Annual PCP Team License Registration Examiner bernarda Disease Visit Annual PCP Team Chronic Disease Visit [facility] Start: 09-06-2025 BP Controlled (<130/80) BP Controlle d (<130/80) [facility] Start: 08-12-2025 BP Controlled (<130/80) BP Controlle d (<130/80) [facility] Start: 07-26-2025 End: 07-26-2025 Patient encounter procedure 07/26/2025 8:00 AM EST Office Visit [facility] [place] [address] [place] [address] Nadir Grady MD [address] [place], [place] [id number] Medicare Wellness [facility] [place] Comment on above: Medicare Wellness Start: 07-24-2025 BP Controlled (<130/80) BP Controlle d (<130/80) [facility] Start: 07-21-2025 Hemoglobin A1c measurement HbA1C [facility] Start: 07-20-2025 Annual PCP Team License Registration Examiner bernarda Disease Visit Annual PCP Team Chronic Disease Visit [facility] Start: 07-20-2025 Anxiety Screening Anxiety Screening [facility] Start: 07-20-2025 Covid-19 Vaccine ( season) Covid-19 Vaccine () [facility] Comment on above: Postponed from 05/02 (Declined at this time) Start: 07-20-2025 Depression Screening Depression Scre ening [facility] Start: 07-20-2025 Diabetic foot examination Diabetic F oot Exam [facility] Start: 07-20-2025 Hepatitis B surface antibody level LDL Cholesterol [facility] Start: 05-02-2025 Influenza vaccination Influenza Vacc ine (#1) [facility] Start: 03-17-2025 End: 03-17-2025 Patient encounter procedure Neurology Comment on above: 3 month follow up Start: 03-05-2025 [facility] Start: 03-05-2025 [facility] Start: 02-22-2025 Evaluation of diagno stic study results [facility] Start: 01-18-2025 End: 01-18-2025 Patient encounter procedure [facility] [place] Comment on above: 6 month f/u Start: 12-21-2024 BP Controlled (<130/80) BP Controlle d (<130/80) [facility] Start: 12-13-2024 End: 12-13-2024 Patient encounter procedure 12/13/2024 10:00 AM EDT Office Visit Neurology [address] [place] [address] Molly Houser APRN.CERTIFIED ANESTHESIOLOGIST ASSISTANT [address] [place] [address] sleep study follow up Neurology Comment on above: sleep study follow u p Start: 10-22-2024 End: 10-22-2024 Patient encounter procedure Neurology Comment on above: Hypersomnolence [G47 .10] NO PAP, no sleep xi dy Start: 10-20-2024 Hemoglobin A1c measurement HbA1C [facility] Start: 09-06-2024 End: 09-06-2024 Patient encounter procedure 09/06/2024 2:40 PM EST Office Visit Family [facility] [place] [address] [place] [address] Nadir Grady MD [address] [place] [address] 4 week f/u weight check and sleep issues Family [facility] [place] Comment on above: 4 week f/u weight ch casie and sleep issues Start: 09-03-2024 BP Controlled (<130/80) BP Controlle d (<130/80) [facility] Start: 09-02-2024 Glaucoma screening Dilated Retinal E xam [facility] Start: 09-01-2024 Advance Directive Discussion Advance Directive Discussion [facility] Start: 09-01-2024 Medicare Advantage A nnual Wellness Visit Medicare Advantage Annual Wellness Visit [facility] Start: 08-27-2024 [facility] Start: 08-27-2024 Enteric precautions [facility] Start: 08-27-2024 [facility] Start: 08-17-2024 Patient referral [facility] Work Phone: Start: 08-16-2024 Cardiac rehabilitati on - phase 1 [facility] Start: 08-16-2024 Cardiac rehabilitati on - phase 2 [facility] Start: 07-21-2024 End: 10-20-2024 ALK PHOS ISOENZYM BL ALK PHOS ISOENZYM BL Lab Routine Elevated alkaline phosphatase level Expected: 07/21/2024, Expires: 10/20/2024 [facility] Work Phone: Comment on above: Expected: 07/21/2024 , Expires: 10/20/2024 Start: 07-21-2024 End: 10-20-2024 Gamma glutamyl transferase [Enzymatic activity/volume] in Serum or Plasma GGT Lab Routine Elevated alkaline phosphatase level Expected: 07/21/2024, Expires: 10/20/2024 [facility] Comment on above: Expected: 07/21/2024 , Expires: 10/20/2024 Start: 07-20-2024 End: 10-19-2024 CBC W Auto Differential panel - Blood [facility] Comment on above: Expected: 07/20/2024 , Expires: 10/19/2024 Start: 07-20-2024 End: 10-19-2024 Comprehensive metabolic 2000 panel - Serum or Plasma [facility] Comment on above: Expected: 07/20/2024 , Expires: 10/19/2024 Start: 07-20-2024 End: 10-19-2024 Hemoglobin A1c in Blood [facility] Work Phone: Comment on above: Expected: 07/20/2024 , Expires: 10/19/2024 Start: 07-20-2024 End: 10-19-2024 Iron and Iron binding capacity panel - Serum or Plasma [facility] Comment on above: Expected: 07/20/2024 , Expires: 10/19/2024 Start: 07-20-2024 End: 10-19-2024 LIPID PANEL, NONFASTING [facility] Comment on above: Expected: 07/20/2024 , Expires: 10/19/2024 Start: 07-20-2024 End: 10-19-2024 Microalbumin/Creatinine [Mass Ratio] in Urine ALBUMIN/CREATININE RATIO, URINE Lab Routine Type 2 diabetes mellitus with diabetic neuropathy, without long-term current use of insulin (HCC) Uncontrolled type 2 diabetes mellitus with hyperglycemia (HCC) Expected: 07/20/2024, Expires: 10/19/2024 [facility] Comment on above: Expected: 07/20/2024 , Expires: 10/19/2024 Start: 07-20-2024 End: 10-19-2024 Thyrotropin [Units/volume] in Serum or Plasma [facility] Comment on above: Expected: 07/20/2024 , Expires: 10/19/2024 Start: 07-20-2024 End: 10-19-2024 Urinalysis complete panel - Urine URINALYSIS, WITH MICROSCOPIC Lab Routine Type 2 diabetes mellitus with diabetic neuropathy, without long-term current use of insulin (HCC) Uncontrolled type 2 diabetes mellitus with hyperglycemia (HCC) Expected: 07/20/2024, Expires: 10/19/2024 [facility] Comment on above: Expected: 07/20/2024 , Expires: 10/19/2024 Start: 06-17-2024 Annual PCP Team License Registration Examiner bernarda Disease Visit Annual PCP Team Chronic Disease Visit [facility] Start: 06-17-2024 BP Controlled (<130/80) BP Controlle d (<130/80) [facility] Start: 06-17-2024 Hepatitis B surface antibody level LDL Cholesterol [facility] Start: 05-02-2024 Covid-19 Vaccine () Covid-19 Vaccine () [facility] Start: 05-02-2024 Covid-19 Vaccine () Covid-19 Vaccine () [facility] Start: 05-02-2024 Influenza vaccination Influenza Vacc ine (#1) [facility] Start: 02-18-2024 BP CONTROLLED (<130/80) BP CONTROLLE D (<130/80) [facility] Start: 12-17-2023 Hemoglobin A1c measurement HbA1C [facility] Start: 12-17-2023 Hemoglobin A1c/Hemoglobin.total in Blood HbA1C [facility] Start: 12-04-2023 Patient discharge [facility] Start: 12-03-2023 Ambulation without limitation [facility] Start: 12-03-2023 Assessment of risk o f venous thromboembolism [facility] Start: 12-03-2023 Incentive spirometry [facility] Start: 12-03-2023 Insertion of cathete r into peripheral vein [facility] Start: 12-03-2023 Measuring intake and output [facility] Start: 12-03-2023 Oxygen therapy [facility] Start: 12-03-2023 Providing care accor ding to standard [facility] Start: 12-03-2023 Provision of activit y privileges [facility] Start: 12-03-2023 Referral to occupati onal therapist [facility] Start: 12-03-2023 Referral to service [facility] Start: 12-03-2023 Tobacco use cessatio n education [facility] Start: 12-03-2023 [facility] Start: 12-03-2023 Following clinical p athway protocol [facility] Start: 12-03-2023 Verification routine [facility] Start: 12-03-2023 Care regimes management [facility] Start: 12-03-2023 Notification of physician [facility] Start: 12-03-2023 [facility] Start: 12-03-2023 Urinalysis complete panel - Urine [facility] Start: 12-03-2023 Hospital admission, emergency, from emergency room, medical nature [facility] Start: 12-03-2023 Admission procedure [facility] Start: 12-03-2023 [facility] Start: 11-29-2023 ANNUAL PCP TEAM SILO OPERATOR BERNARDA DISEASE VISIT ANNUAL PCP TEAM CHRONIC DISEASE VISIT [facility] Start: 11-29-2023 Hepatitis B screening URINE ALBUMIN:CREATININE RATIO [facility] Start: 11-29-2023 Hepatitis B surface antibody level LDL CHOLESTEROL [facility] Start: 11-22-2023 BP CONTROLLED (<130/80) BP CONTROLLE D (<130/80) [facility] Start: 11-11-2023 Patient referral [facility] Work Phone: Start: 10-29-2023 BP CONTROLLED (<130/80) BP CONTROLLE D (<130/80) [facility] Start: 10-23-2023 [facility] Start: 10-15-2023 [facility] Start: 10-15-2023 [facility] Start: 10-14-2023 Colonoscopy COLONOSCOPY [facility] Start: 10-13-2023 Patient referral [facility] Work Phone: Start: 10-11-2023 Patient discharge [facility] Start: 10-10-2023 Ambulation without limitation [facility] Start: 10-10-2023 Pulse taking [facility] Start: 10-10-2023 Cardiac monitoring [facility] Start: 10-10-2023 Cardiac rehabilitati on - phase 1 [facility] Start: 10-10-2023 Cardiac rehabilitati on - phase 2 [facility] Start: 10-10-2023 Notification of physician [facility] Start: 10-10-2023 Patient discharge [facility] Start: 10-10-2023 Taking patient vital signs [facility] Start: 10-10-2023 Vascular disease ris k assessment [facility] Start: 10-10-2023 Vital signs measurements [facility] Start: 10-10-2023 End: 10-10-2023 [facility] Start: 10-10-2023 Application of intermittent pneumatic compression device [facility] Start: 10-10-2023 End: 10-10-2023 Care planning and problem solving actions [facility] Start: 10-09-2023 Following clinical p athway protocol [facility] Start: 10-09-2023 Ambulation without limitation [facility] Start: 10-09-2023 Assessment of risk o f venous thromboembolism [facility] Start: 10-09-2023 Care regimes management [facility] Start: 10-09-2023 Insertion of cathete r into peripheral vein [facility] Start: 10-09-2023 Measuring intake and output [facility] Start: 10-09-2023 Notification of physician [facility] Start: 10-09-2023 Providing care accor ding to standard [facility] Start: 10-09-2023 Referral to production line [facility] Start: 10-09-2023 Referral to occupati onal therapist [facility] Start: 10-09-2023 Referral to service [facility] Start: 10-09-2023 Tobacco use cessatio n education [facility] Start: 10-09-2023 [facility] Start: 10-09-2023 Verification routine [facility] Start: 10-09-2023 Hospital admission, emergency, from emergency room, medical nature [facility] Start: 10-09-2023 Admission procedure [facility] Start: 10-09-2023 End: 10-09-2023 [facility] Start: 10-05-2023 BP CONTROLLED (<130/80) BP CONTROLLE D (<130/80) [facility] Start: 10-04-2023 ANNUAL PCP TEAM SILO OPERATOR BERNARDA DISEASE VISIT ANNUAL PCP TEAM CHRONIC DISEASE VISIT [facility] Start: 09-01-2023 Advance Directive Discussion Advance Directive Discussion [facility] Start: 09-01-2023 Behavioral Health Screening Behavioral Health Screening [facility] Start: 09-01-2023 Depression Assessment Depression Ass essment [facility] Start: 08-21-2023 ANNUAL PCP TEAM SILO OPERATOR BERNARDA DISEASE VISIT ANNUAL PCP TEAM CHRONIC DISEASE VISIT [facility] Start: 08-21-2023 BP CONTROLLED (<130/80) BP CONTROLLE D (<130/80) [facility] Start: 08-21-2023 COVID-19 VACCINE (2 - Pfizer series) COVID-19 VACCINE (2 - Pfizer series) [facility] Comment on above: Postponed from 09/06 (Declined at this time) Postponed from 10/11 (Declined at this time) Start: 07-30-2023 ANNUAL PCP TEAM SILO OPERATOR BERNARDA DISEASE VISIT ANNUAL PCP TEAM CHRONIC DISEASE VISIT [facility] Start: 06-27-2023 BP CONTROLLED (<130/80) BP CONTROLLE D (<130/80) [facility] Start: 06-25-2023 ANNUAL PCP TEAM SILO OPERATOR BERNARDA DISEASE VISIT ANNUAL PCP TEAM CHRONIC DISEASE VISIT [facility] Start: 06-25-2023 BP CONTROLLED (<130/80) BP CONTROLLE D (<130/80) [facility] Start: 05-31-2023 Hemoglobin A1c/Hemoglobin.total in Blood HBA1C [facility] Start: 05-13-2023 3 comp foot exam completed DIABETIC FOOT EXAM [facility] Start: 05-13-2023 ANNUAL PCP TEAM SILO OPERATOR BERNARDA DISEASE VISIT ANNUAL PCP TEAM CHRONIC DISEASE VISIT [facility] Start: 05-13-2023 Diabetic foot examination Diabetic F oot Exam [facility] Start: 05-02-2023 Covid-19 Vaccine () Covid-19 Vaccine () [facility] Start: 05-02-2023 Influenza vaccination INFLUENZA (#1) [facility] Start: 04-25-2023 BP CONTROLLED (<130/80) BP CONTROLLE D (<130/80) [facility] Start: 04-19-2023 ANNUAL PCP TEAM SILO OPERATOR BERNARDA DISEASE VISIT ANNUAL PCP TEAM CHRONIC DISEASE VISIT [facility] Start: 04-19-2023 BP CONTROLLED (<130/80) BP CONTROLLE D (<130/80) [facility] Start: 04-17-2023 Hepatitis B surface antibody level LDL CHOLESTEROL [facility] Start: 04-01-2023 End: 06-01-2023 Fungus identified in Unspecified specimen by Culture FUNGAL CULTURE Microbiology Routine Mouth sores Expected: 04/01/2023, Expires: 06/01/2023 [facility] Work Phone: Comment on above: Expected: 04/01/2023 , Expires: 06/01/2023 Start: 02-07-2023 BP CONTROLLED (<130/80) BP CONTROLLE D (<130/80) [facility] Start: 11-29-2022 End: 2023 Prostate Specific Ag Free [Mass/volume] in Serum or Plasma PSA FREE Lab Routine Elevated PSA Expected: 11/29/2022, Expires: 2023 [facility] Work Phone: Comment on above: Expected: 11/29/2022 , Expires: 2023 Start: 11-28-2022 End: 01-28-2023 ALBUMIN/CREAT RATIO RND UR [facility] Work Phone: Comment on above: Expected: 11/28/2022 , Expires: 01/28/2023 Start: 11-28-2022 End: 01-28-2023 Hemoglobin A1c in Blood [facility] Work Phone: Comment on above: Expected: 11/28/2022 , Expires: 01/28/2023 Start: 11-10-2022 Hemoglobin A1c/Hemoglobin.total in Blood HBA1C [facility] Start: 11-08-2022 ANNUAL PCP TEAM SILO OPERATOR BERNARDA DISEASE VISIT ANNUAL PCP TEAM CHRONIC DISEASE VISIT [facility] Start: 11-08-2022 BP CONTROLLED (<130/80) BP CONTROLLE D (<130/80) [facility] Start: 11-02-2022 Hepatitis B screening URINE ALBUMIN:CREATININE RATIO [facility] Start: 11-02-2022 Hepatitis B surface antibody level LDL CHOLESTEROL [facility] Start: 09-01-2022 ADVANCE DIRECTIVE DISCUSSION ADVANCE DIRECTIVE DISCUSSION [facility] Start: 09-01-2022 DEPRESSION ASSESSMENT DEPRESSION ASS ESSMENT [facility] Start: 07-28-2022 End: 09-27-2022 CBC W Auto Differential panel - Blood CBC + DIFF Lab Routine Iron deficiency anemia, unspecified iron deficiency anemia type Expected: 07/28/2022, Expires: 09/27/2022 [facility] Work Phone: Comment on above: Expected: 07/28/2022 , Expires: 09/27/2022 Start: 07-28-2022 End: 09-27-2022 Iron and Iron binding capacity panel - Serum or Plasma IRON + TIBC Lab Routine Iron deficiency anemia, unspecified iron deficiency anemia type Expected: 07/28/2022, Expires: 09/27/2022 [facility] Work Phone: Comment on above: Expected: 07/28/2022 , Expires: 09/27/2022 Start: 07-02-2022 End: 09-01-2022 CREATININE BLD CREATININE BLD Lab Routine Abnormal weight loss Expected: 07/02/2022, Expires: 09/01/2022 [facility] Work Phone: Comment on above: Expected: 07/02/2022 , Expires: 09/01/2022 Start: 06-26-2022 End: 08-26-2022 Ferritin [Mass/volume] in Serum or Plasma [facility] Work Phone: Comment on above: Expected: 06/26/2022 , Expires: 08/26/2022 Start: 06-26-2022 End: 08-26-2022 Glucose [Mass/volume] in Serum or Plasma [facility] Work Phone: Comment on above: Expected: 06/26/2022 , Expires: 08/26/2022 Start: 06-26-2022 End: 08-26-2022 Iron and Iron binding capacity panel - Serum or Plasma [facility] Work Phone: Comment on above: Expected: 06/26/2022 , Expires: 08/26/2022 Start: 06-25-2022 End: 08-25-2022 25-hydroxyvitamin D3 [Mass/volume] in Serum or Plasma [facility] Work Phone: Comment on above: Expected: 06/25/2022 , Expires: 08/25/2022 Start: 06-25-2022 End: 08-25-2022 CBC W Auto Differential panel - Blood [facility] Work Phone: Comment on above: Expected: 06/25/2022 , Expires: 08/25/2022 Start: 06-25-2022 End: 08-25-2022 Cobalamin (Vitamin B12) [Mass/volume] in Serum or Plasma [facility] Work Phone: Comment on above: Expected: 06/25/2022 , Expires: 08/25/2022 Start: 06-25-2022 End: 08-25-2022 Comprehensive metabolic 2000 panel - Serum or Plasma [facility] Work Phone: Comment on above: Expected: 06/25/2022 , Expires: 08/25/2022 Start: 06-25-2022 End: 08-25-2022 Creatine kinase [Enzymatic activity/volume] in Serum or Plasma [facility] Work Phone: Comment on above: Expected: 06/25/2022 , Expires: 08/25/2022 Start: 06-25-2022 End: 08-25-2022 Folate [Mass/volume] in Serum or Plasma [facility] Work Phone: Comment on above: Expected: 06/25/2022 , Expires: 08/25/2022 Start: 06-25-2022 End: 08-25-2022 Testosterone [Mass/volume] in Serum or Plasma [facility] Work Phone: Comment on above: Expected: 06/25/2022 , Expires: 08/25/2022 Start: 06-25-2022 End: 08-25-2022 Thyrotropin [Units/volume] in Serum or Plasma [facility] Work Phone: Comment on above: Expected: 06/25/2022 , Expires: 08/25/2022 Start: 06-25-2022 End: 08-25-2022 Thyroxine (T4) free [Mass/volume] in Serum or Plasma [facility] Work Phone: Comment on above: Expected: 06/25/2022 , Expires: 08/25/2022 Start: 05-28-2022 [facility] Work Phone: Start: 05-14-2022 End: 07-14-2022 Sodium [Moles/volume] in Serum or Plasma SODIUM/NA BLD Lab Routine Hyponatremia Expected: 05/14/2022, Expires: 07/14/2022 [facility] Work Phone: Comment on above: Expected: 05/14/2022 , Expires: 07/14/2022 Start: 05-11-2022 Hemoglobin A1c/Hemoglobin.total in Blood HBA1C [facility] Start: 05-02-2022 Influenza vaccination INFLUENZA (#1) [facility] Start: 02-14-2022 3 comp foot exam completed DIABETIC FOOT EXAM [facility] Start: 02-06-2022 PNEUMOCOCCAL: 65+ (3 - PPSV23 or PCV20) PNEUMOCOCCAL: 65+ (3 - PPSV23 or PCV20) [facility] Start: 02-06-2022 PNEUMOVAX AGE 65 AND OVER WITH 5YR LOOKBACK (#1) PNEUMOVAX AGE 65 AND OVER WITH 5YR LOOKBACK (#1) [facility] Start: 01-09-2022 Hepatitis C antibody , confirmatory test DILATED RETINAL EXAM [facility] Start: 01-01-2022 Patient referral [facility] Work Phone: Start: 12-06-2021 BP CONTROLLED (<130/80) BP CONTROLLE D (<130/80) [facility] Start: 09-06-2021 COVID-19 VACCINE (2 - Pfizer 3-dose series) COVID-19 VACCINE (2 - Pfizer 3-dose series) [facility] Start: 09-06-2021 COVID-19 VACCINE (2 - Pfizer series) COVID-19 VACCINE (2 - Pfizer series) [facility] Start: 09-01-2021 DEPRESSION ASSESSMENT DEPRESSION ASS ESSMENT [facility] Start: 04-19-2020 FECAL OCCULT BLOOD FECAL OCCULT BLOO D [facility] Start: 04-19-2020 Screening for malign ant neoplasm of colon Fecal Occult Blood [facility] Start: 08-22-2017 End: 08-22-2017 Appointment Appointment [facility] Work Phone: Start: 08-12-2017 End: 02-13-2017 *Hepatic Function Panel *Hepatic Function Panel [facility] Work Phone: Start: 08-12-2017 End: 02-13-2017 Lipid panel [AGGREGATE] *Lipid Profile CC PCP [facility] Work Phone: Start: 04-24-2017 End: 04-24-2017 Appointment Appointment [facility] Work Phone: Start: 04-24-2017 End: 04-24-2017 Appointment Appointment [facility] Work Phone: Start: 02-07-2017 End: 02-07-2017 Appointment Appointment [facility] Work Phone: Start: 02-07-2017 End: 02-10-2017 *Hepatic Function Panel *Hepatic Function Panel [facility] Work Phone: Start: 02-07-2017 End: 02-07-2017 Cardiac Rehab [facility] [address], [place], [address] [facility] Work Phone: Start: 02-07-2017 End: 02-07-2017 Follow Up Appt 6 months Follow Up Appt 6 months [facility] Work Phone: Start: 02-07-2017 End: 02-10-2017 Lipid panel [AGGREGATE] *Lipid Profile CC PCP [facility] Work Phone: Start: 02-07-2017 End: 02-07-2017 MMM MMM [facility] Work Phone: Start: 01-08-2017 End: 01-08-2017 Appointment Appointment [facility] Work Phone: Start: 01-08-2017 End: 01-08-2017 *BMP *BMP [facility] Work Phone: Start: 01-08-2017 End: 01-08-2017 CBC W Auto Differential panel - Blood *CBC without Diff [facility] Work Phone: Start: 01-08-2017 End: 02-10-2017 Chest x-ray X-Ray, Chest, PA & Lateral [facility] Work Phone: Start: 01-08-2017 End: 01-08-2017 Coagulation factor induced.INR assay in platelet poor plasma *PT/INR [facility] Work Phone: Start: 01-08-2017 End: 02-07-2017 TRANSIT MIX OPERATOR TRANSIT MIX OPERATOR [facility] Work Phone: Start: 01-08-2017 End: 01-08-2017 Echocardiography Echocardiogram (complete) [facility] Work Phone: Start: 01-08-2017 End: 02-10-2017 Electrocardiogram, complete EKG (In office) [facility] Work Phone: Start: 01-08-2017 End: 02-07-2017 Follow Up Appt 3 months Follow Up Appt 3 months [facility] Work Phone: Start: 01-08-2017 End: 05-17-2017 Left Heart Cath Left Heart Cath [facility] Work Phone: Start: 2013 Hepatitis B Vaccine (1 of 3 - Risk 3-dose series) Hepatitis B Vaccine (1 of 3 - Risk 3-dose series) [facility] Start: 1998 COLOGUARD (FIT-DNA) COLOGUARD (FIT-D NA) [facility] Start: 1998 Colonoscopy COLONOSCOPY [facility] Start: [address] COLONOGRAPHY [facility] Start: 1998 Screening for malign ant neoplasm of colon [facility] Start: 1998 SIGMOIDOSCOPY SIGMOIDOSCOPY [facility] Start: 1971 Anxiety Screening Anxiety Screening [facility] Start: 1971 Depression Screening Depression Scre ening [facility] Start: 1959 PNEUMOCOCCAL: 65+ (1 - PCV) PNEUMOCOCCAL: 65+ (1 - PCV) [facility] Ankle brachial press ure index [facility] Catheterization of [facility] Work Phone: [facility] End: 06-27-2023 COLONOSCOPY DIAGNOSTIC COLONOSCOPY DIAGNOSTIC Endoscopy Routine Anemia, unspecified type 1 Occurrences starting 06/27/2022 until 06/27/2023 [facility] Work Phone: Comment on above: 1 Occurrences starti ng 06/27/2022 until 06/27/2023 End: 08-01-2023 Ct abdomen & pelvis w/contrast material CT ABD/PEL W IVCON Radiology Routine Abnormal weight loss 1 Occurrences starting 07/02/2022 until 08/01/2023 [facility] Work Phone: Comment on above: 1 Occurrences starti ng 07/02/2022 until 08/01/2023 End: 08-01-2023 CT CHEST W IVCON CT CHEST W IVCON Radiology Routine Abnormal weight loss 1 Occurrences starting 07/02/2022 until 08/01/2023 [facility] Work Phone: Comment on above: 1 Occurrences starti ng 07/02/2022 until 08/01/2023 Doppler ultrasonogra phy of aorta [facility] End: 06-27-2023 EGD DIAGNOSTIC EGD DIAGNOSTIC Endoscopy Routine Anemia, unspecified type 1 Occurrences starting 06/27/2022 until 06/27/2023 [facility] Work Phone: Comment on above: 1 Occurrences starti ng 06/27/2022 until 06/27/2023 [facility] Work Phone: Patient referral [facility] Work Phone: End: 10-22-2025 Polysomnogram POLYSOMNOGRAM (PSG) Procedures Routine Dream enactment behavior Snores RLS (restless legs syndrome) Non-restorative sleep Excessive daytime sleepiness Chronic insomnia 1 Occurrences starting 10/22/2024 until 10/22/2025 [facility] Work Phone: Comment on above: 1 Occurrences starti ng 10/22/2024 until 10/22/2025 SURGICAL PATHOLOGY [facility] Work Phone: Comment on above: Release Upon Orderin g for 1 Occurrences starting 10/14/2022, 1 completed End: 07-25-2023 Us abdominal real time w/image limited US ABD RT UPPER QUADRANT Radiology Routine Abnormal weight loss 1 Occurrences starting 06/25/2022 until 07/25/2023 [facility] Work Phone: Comment on above: 1 Occurrences starti ng 06/25/2022 until 07/25/2023 US Carotid arteries [facility] Work Phone: US Carotid arteries [facility] Immunizations Immunization Date Immunization Notes [facility] Seasonal trivalent influenza vaccine, adjuvanted, preservative free Martha Boston PA-C Work Phone: [facility] 05-19-2024 influenza virus vacc ine, unspecified formulation Molly Houser CERTIFIED ANESTHESIOLOGIST ASSISTANT Work Phone: [facility] 05-15-2023 respiratory syncytia l virus (RSV) vaccine, bivalent (ABRYSVO) Nadir Grady MD Work Phone: [facility] 05-15-2023 Seasonal trivalent influenza vaccine, adjuvanted, preservative free Nadir Grady MD Work Phone: [facility] 05-15-2023 influenza virus vacc ine, unspecified formulation Dell Posey [facility] 05-13-2022 influenza, high-dose , quadrivalent vaccine (FLUZONE HIGH DOSE QUADRIVALENT) Martha Boston PA-C Work Phone: [facility] 05-13-2022 pneumococcal (PCV20) vaccine, 20 valent (PREVNAR 20) Martha Boston PA-C Work Phone: [facility] 05-13-2022 pneumococcal Conjuga te, unspecified formulation Martha Boston PA-C Work Phone: [facility] Work Phone: 08-16-2021 Covid (Pfizer) Dr. Nadir vidal Work Phone: [facility] 07-21-2021 influenza, injectabl e, quadrivalent, preservative free Dr. Nadir Grady Work Phone: [facility] 07-21-2021 influenza, seasonal, injectable Dr. Nadir Grady Work Phone: [facility] Work Phone: 03-01-2021 tetanus toxoid, redu radha diphtheria toxoid, and acellular pertussis vaccine, adsorbed Dr. Nadir Grady Work Phone: [facility] 08-10-2020 zoster vaccine recombinant Nadir Grady MD Work Phone: [facility] 04-17-2020 influenza, high dose seasonal, preservative-free Nadir Grady MD Work Phone: [facility] 04-17-2020 zoster vaccine recombinant Nadir Grady MD Work Phone: [facility] 10-18-2019 pneumococcal conjuga te vaccine, 13 valent Nadir Grady MD Work Phone: [facility] 10-18-2019 tetanus toxoid, redu radha diphtheria toxoid, and acellular pertussis vaccine, adsorbed Nadir Grady MD Work Phone: [facility] 06-17-2019 influenza, high dose seasonal, preservative-free Nadir Grady MD Work Phone: [facility] 06-12-2018 influenza, high dose seasonal, preservative-free Nadir Grady MD Work Phone: [facility] 06-12-2018 pneumococcal conjuga te vaccine, 13 valent Nadir Grady MD Work Phone: [facility] 05-04-2017 influenza, injectabl e, quadrivalent, contains preservative Nadir Grady MD Work Phone: [facility] Work Phone: 02-06-2017 pneumococcal polysaccharide vaccine, 23 valent Nadir Grady MD Work Phone: [facility] 06-18-2016 influenza virus vacc ine, unspecified formulation Nadir Grady MD Work Phone: [facility] Work Phone: 06-01-2016 influenza, injectabl e, quadrivalent, preservative free Dr. Nadir Grady Work Phone: [facility] 06-01-2016 influenza, seasonal, injectable Dr. Nadir Grady Work Phone: [facility] Work Phone: 07-10-2015 influenza virus vacc ine, unspecified formulation Nadir Grady MD Work Phone: [facility] Work Phone: 07-24-2011 tetanus toxoid, redu radha diphtheria toxoid, and acellular pertussis vaccine, adsorbed Nadir Grady MD Work Phone: [facility] Work Phone: 05-18-2011 influenza virus vacc ine, unspecified formulation Nadir Grady MD Work Phone: [facility] Work Phone: 07-10-2010 influenza virus vacc ine, unspecified formulation Nadir Grady MD Work Phone: [facility] Work Phone: 06-09-2009 influenza virus vacc ine, unspecified formulation Nadir Grady MD Work Phone: [facility] Work Phone: 06-07-2008 influenza virus vacc ine, unspecified formulation Nadir Grady MD Work Phone: [facility] 07-06-2007 influenza virus vacc ine, unspecified formulation Nadir Grady MD Work Phone: [facility] Work Phone: 07-05-2006 influenza virus vacc ine, unspecified formulation Nadir Grady MD Work Phone: [facility] Work Phone: Payers Date Payer Category Payer Self-pay [id number] 2018 Medicare HUMANA MEDICARE HUMANA GOLD PLUS [id number] 2018-Present [phone] [place] [id number] [facility] [id number] 2018 Medicare [id number] 2018 Medicare (Managed Care) HUMANA G OLD PLUS Member Subscriber Plan / Payer (Effective 2018-Present) Name: Michael Bates Relation to Subscriber: Self Name: Michael Bates Payer ID: [id number] (ALICE) Type: HMO Address: [place] [id number] 2013 Medicare [id number] 1999 Unknown [facility] [place] [facility] COMP [id number] 1999-Present [phone] [facility] [place] [id number] [place] [address] [id number] 1999 Unknown [facility] [employer] [facility] COMP [id number] 1999-Present [phone] [facility] [place] [address] [facility] [id number] Medicaid [id number] Medicare [id number] Unknown [id number]. 462 Unknown [id number] [id number]. 462 Unknown [id number] 2.16.840.1.968729.3.579.2. 462 Unknown [id number] 2.16.840.1.075646.3.579.2. 462 Unknown [id number] 2.16.840.1.155608.3.579.2. 462 Unknown [id number] 2.16.840.1.408072.3.579.2. 462 Unknown [id number] 2.16.840.1.744255.3.579.2. 462 Unknown [id number] 2.16.840.1.262152.3.579.2. 462 Unknown [id number] 2.16.840.1.607190.3.579.2. 462 Unknown [id number] 2.16.840.1.780817.3.579.2. 462 Unknown [id number] 2.16.840.1.397992.3.579.2. 462 Unknown [id number] 2.16.840.1.118074.3.579.2. 462 Unknown [id number] 2.16.840.1.244434.3.579.2. 462 Unknown [id number] 2.16.840.1.209658.3.579.2. 462 Unknown [id number] 2.16.840.1.816000.3.579.2. 462 Unknown [id number] 2.16.840.1.515869.3.579.2. 462 Unknown [id number] 2.16.840.1.056977.3.579.2. 462 Unknown [id number] 2.16.840.1.877926.3.579.2. 462 Unknown [id number] 2.16.840.1.401317.3.579.2. 462 Unknown [id number] 2.16.840.1.399670.3.579.2. 462 Unknown [id number] 2.16840.1.286556.3.579.2. 462 Unknown [id number]. 462 Social History Date Type Detail Facility Start: 08-04-2015 End: 07-20-2024 Tobacco smoking status NHIS Never smoked tobacco [facility] Work Phone: End: 07-02-2014 History of tobacco use Chews Tobacco [facility] Work Phone: Start: 11-08-2021 End: 01-18-2025 Alcohol intake Current non-drinker of alcohol (finding) [facility] Start: 11-07-2020 End: 04-19-2022 History SDOH Alcohol Frequency 1 [facility] Start: 11-07-2020 End: 04-19-2022 History SDOH Alcohol Std Drinks 98 [facility] Start: 11-07-2020 End: 04-19-2022 History SDOH Social Connections Phone 5 [facility] Start: 11-07-2020 End: 04-19-2022 History SDOH Social Connections Get Together 2 [facility] Start: 11-07-2020 End: 04-19-2022 History SDOH Social Connections Living 4 [facility] Start: 11-07-2020 Education 11 [facility] Start: 08-04-2015 End: 04-19-2022 Tobacco Comment 1 can of chewing tobacco every 3 days PT QUIT 2014 [facility] Start: 1955 Sex Assigned At Not on file C [facility] Start: 08-09-2020 End: 08-05-2022 Exposure to SARS-CoV-2 (event) Not sure [facility] Start: 12-13-2021 End: 12-03-2023 Tobacco smoking status NHIS Unknown if ever smoked [facility] Start: 03-04-2020 Occasional [facility] Start: 03-04-2020 None [facility] Start: 03-04-2020 With Family [facility] Start: 01-12-2021 Chew [facility] Start: 1955 Sex Assigned At Male W [facility] History of tobacco use Cigarette Smoker C [facility] Work Phone: Start: 08-04-2015 End: 07-20-2024 Tobacco use and exposure Former smokeless tobacco user [facility] Work Phone: Start: 04-19-2022 History SDOH Social Connections Mormonism 3 [facility] Start: 04-19-2022 End: 06-17-2023 History of Social function [facility] Start: 04-19-2022 End: 06-17-2023 Social connection and isolation panel [facility] Do you belong to any clubs or organizations such as yazidi groups, unions, fraternal or athletic groups, or school groups? No [facility] How often do you att end meetings of the clubs or organizations you belong to? Patient refused [facility] Are you now , , , , never or living with a partner? [facility] How often to you hav e a drink containing alcohol? Never [facility] How hard is it for y ou to pay for the very basics like food, housing, medical care, and heating Not very hard [facility] Do you feel stress - tense, restless, nervous, or anxious, or unable to sleep at night because your mind is troubled all the time - these days [OSQ] Very much [facility] (I/We) worried wheth er (my/our) food would run out before (I/we) got money to buy more. Sometimes true [facility] Do you feel stress - tense, restless, nervous, or anxious, or unable to sleep at night because your mind is troubled all the time - these days [OSQ] Only a little [facility] (I/We) worried wheth er (my/our) food would run out before (I/we) got money to buy more. Never true [facility] [facility] Start: 11-17-2024 End: 12-28-2024 Sex Male (finding) [facility] Medical Equipment Procedure Code Equipment Code Equipment Origin al Text Equipment Identifier Dates [id number], [id number], [id number], [id number], [id number] Start: 10-14-2016 End: 06-26-2022 Comment on above: Use as directed as i ndicated to check quality of test strips Test blood sugar(s) 2 times daily. Dx: Type 2 DM - Uncontrolled E11.65 Insulin: No ([id number]) Drug-eluting coronary artery stent, bioabsorbable-polym er-coated ()[id number] FDA Start: 04-26-2021 ([id number]) Drug-eluting coronary artery stent, bioabsorbable-polym er-coated ()[id number] FDA Start: 07-23-2021 ([id number]) Implantable card iac monitor ()[id number] FDA Start: 12-14-2021 Drug-eluting coronary artery stent, uvw-mbypjbvxlibaj-y olymer-coated ()[id number] FDA Start: 10-10-2023 Drug-eluting coronary artery stent, icc-bhyutbtfhxfvz-a olymer-coated ()[id number] FDA Start: 10-10-2023 Drug-eluting coronary artery stent, efq-qsbfwgmtbkcqi-z olymer-coated ()[id number] FDA Start: 10-10-2023 Drug-eluting coronary artery stent, lym-hwsgfhhcazked-g olymer-coated ()[id number] FDA Start: 10-10-2023 Drug-eluting coronary artery stent, fqb-hjeypwlwkqywj-d olymer-coated ()[id number] FDA Start: 10-10-2023 ([id number]) Drug-eluting coronary artery stent, bioabsorbable-polym er-coated ()[id number] FDA Start: 10-10-2023 Drug-eluting coronary artery stent, frj-zuppmkdvuabgp-v olymer-coated ()[id number] FDA Start: 08-16-2024 Goals Date Patient Goal Desired Activity /State Functional Status Date Assessment Result Facility 12-04-2023 Functional status Activity Abili ty Independent [facility] Work Phone: 10-11-2023 Functional status Up ad haile [facility] Work Phone: 03-07-2018 Are you deaf, or do you have serious difficulty hearing No 03/07/2018 3:34 PM Opal Herman, RIAN No [facility] Work Phone: 03-07-2018 Are you blind, or do you have serious difficulty seeing, even when wearing glasses No 03/07/2018 3:34 PM Opal Herman, RIAN No [facility] 03-07-2018 Do you have serious difficulty walking or climbing stairs No 03/07/2018 3:34 PM Opal Herman, RN No [facility] 03-07-2018 Do you have difficul ty dressing or bathing No 03/07/2018 3:34 PM Opal Herman, RIAN No [facility] 03-07-2018 Because of a physica l, mental, or emotional condition, do you have difficulty doing errands alone such as visiting a physician's office or shopping No 03/07/2018 3:34 PM Opal Herman, RIAN No [facility] Mental Status Date Assessment Result Facility 03-05-2025 Cognitive function Voice/Name [facility] Work Phone: 08-27-2024 Cognitive function Voice/Name [facility] Work Phone: 12-04-2023 Cognitive function Voice/Name [facility] Work Phone: 12-03-2023 Cognitive function Level Of Cons ciousness Awake;Alert;Appropriate;Fol lows Commands [facility] Work Phone: 10-23-2023 Cognitive function Level Of Cons ciousness Awake;Alert;Appropriate;Fol lows Commands [facility] Work Phone: 10-15-2023 Cognitive function Voice/Name [facility] Work Phone: 10-11-2023 Cognitive function Voice/Name [facility] Work Phone: 10-09-2023 Cognitive function Awake;Alert;A ppropriate;Fol lows Commands [facility] Work Phone: 05-28-2022 Cognitive function Awake;Alert;A ppropriate;Fol lows Commands [facility] Work Phone: 04-24-2022 Cognitive function Voice/Name [facility] Work Phone: 11-02-2021 Cognitive function Level Of Cons ciousness Awake;Alert;Appropriate;Fol lows Commands [facility] Work Phone: 03-07-2018 Because of a physica l, mental, or emotional condition, do you have serious difficulty concentrating, remembering, or making decisions No 03/07/2018 3:34 PM Opal Herman, RIAN No [facility] Clinical Notes 10-03-2016 to 03-08-2025 Telephone Encounter - Paula Donaldson LPN - 03/08/2025 10:59 AM EDTTelephone Encounter - Paula Donaldson LPN - 03/08/2025 10:59 AM EDTFozia Manjarrez MA - 03/07/2025 9:05 AM EDT Note Date & Type Note Facility 03-08-2025 Telephone encounter Note [employer] takes Pt Medicare insurance. And will go to Pt home to set up Cpap for him. They will call Pt and set up a day and time. Will fax new/replacement device order to [employer]. TC to Pt and updated him and he understood. Paula Donaldson LPN [facility] 03-08-2025 Miscellaneous Notes [employer] takes Pt Medicare insurance. And will go to Pt home to set up Cpap for him. They will call Pt and set up a day and time. Will fax new/replacement device order to [employer]. TC to Pt and updated him and he understood. Paula Donaldson LPN documented in this encounter [facility] 03-07-2025 History of Presen t illness Narrative Scan on 03/05/2025 5:00 PM by Provider, External, PARiccardoC: [facility] documented in this encounter [facility] 03-05-2025 Radiology Diagnostic study note [facility] Imaging Services [address], [place] [address] Chest 1 View (Portable) MR#: [id number] Acct: [id number] Name: MICHAEL BATES Jr. Rep #: [id number] : 1955 M 70 From: Sarah Mendenhall MD PCP: Dr. Nadir Grady MD Status: REG ER Study:Chest 1 View (Portable) Date of Exam: 03/05/25 Exam# [id number] Ordering Dr: Blas Shah MD EXAM: XR Chest, 1 View CLINICAL INDICATION: CHEST PAIN TECHNIQUE: Frontal view of the chest. COMPARISON: No relevant prior studies available. FINDINGS: LUNGS AND PLEURAL SPACES: Unremarkable. No consolidation. No pneumothorax. HEART: Unremarkable. No cardiomegaly. MEDIASTINUM: Unremarkable. Normal mediastinal contour. BONES/JOINTS: Unremarkable. No acute fracture. RAD/Chest 1 View (Portable) IMPRESSION: No acute cardiopulmonary process. Reading Location: [facility] ER CC: Dr. Pop Shah MD; Dr. 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 Paula Donaldson LPN [facility] 03-03-2025 Miscellaneous Notes Pt was called and notified that we need an updated insurance card scanned in for his Cpap order. Paula Donaldson LPN documented in this encounter [facility] 02-23-2025 Telephone encounter Note The following approved medication requests have been transmitted electronically. Requested Prescriptions Signed Prescriptions Disp Refills metFORMIN ER (GLUCOPHAGE XR) 500 mg 24 hr tablet 360 tablet 1 Sig: Take 2 tablets by mouth two times a day. Authorizing Provider: NADIR GRADY MD [facility] 02-23-2025 Miscellaneous Notes The following approved medication requests have been transmitted electronically. Requested Prescriptions Signed Prescriptions Disp Refills metFORMIN ER (GLUCOPHAGE XR) 500 mg 24 hr tablet 360 tablet 1 Sig: Take 2 tablets by mouth two times a day. Authorizing Provider: NADIR GRADY MD Prescription Refill Information The patient has been identified by name and date of : Yes Caregiver verified no other encounters exist for this prescription request: Yes Caregiver confirmed with patient/requestor that no other refills are due, in the near future, with this provider at this time: Yes The last office visit in the department: 01/18/25 Does the patient have a future office visit with this provider/department: Yes Requested Prescriptions Pending Prescriptions Disp Refills metFORMIN ER (GLUCOPHAGE XR) 500 mg 24 hr tablet 360 tablet 1 Sig: Take 2 tablets by mouth two times a day. Luis E Agudelo LPN February 23, 2025 9:19 AM Prescription Refill Information The patient has been identified by name and date of : Yes Caregiver verified no other encounters exist for this prescription request: Yes Caregiver confirmed with patient/requestor that no other refills are due, in the near future, with this provider at this time: Yes The last office visit in the department: 01/18/2025 Does the patient have a future office visit with this provider/department: Yes Requested Prescriptions Pending Prescriptions Disp Refills metFORMIN ER (GLUCOPHAGE XR) 500 mg 24 hr tablet 360 tablet 1 Sig: Take 2 tablets by mouth two times a day. Ila Roach February 23, 2025 8:33 AM documented in this encounter [facility] 02-23-2025 Telephone encounter Note Prescription Refill Information The patient has been identified by name and date of : Yes Caregiver verified no other encounters exist for this prescription request: Yes Caregiver confirmed with patient/requestor that no other refills are due, in the near future, with this provider at this time: Yes The last office visit in the department: 01/18/25 Does the patient have a future office visit with this provider/department: Yes Requested Prescriptions Pending Prescriptions Disp Refills metFORMIN ER (GLUCOPHAGE XR) 500 mg 24 hr tablet 360 tablet 1 Sig: Take 2 tablets by mouth two times a day. Luis E Agudelo LPN February 23, 2025 9:19 AM [facility] 02-23-2025 Telephone encounter Note Prescription Refill Information The patient has been identified by name and date of : Yes Caregiver verified no other encounters exist for this prescription request: Yes Caregiver confirmed with patient/requestor that no other refills are due, in the near future, with this provider at this time: Yes The last office visit in the department: 01/18/2025 Does the patient have a future office visit with this provider/department: Yes Requested Prescriptions Pending Prescriptions Disp Refills metFORMIN ER (GLUCOPHAGE XR) 500 mg 24 hr tablet 360 tablet 1 Sig: Take 2 tablets by mouth two times a day. Ila Roach February 23, 2025 8:33 AM [facility] 02-22-2025 Note HNO ID: [id number] Author: LUIS E AGUDELO LPN Service: ? Author Type: LICENSED NURSE Type: Progress Notes Filed: 02/22/2025 12:25 Note Text: Scan on 02/22/2025 12:02 PM by ProviderSonido PA-C: Consultation - Cardiology [facility] 02-22-2025 History of Presen t illness Narrative Scan on 02/22/2025 12:02 PM by ProviderSonido PA-C: Consultation - Cardiology documented in this encounter [facility] 01-27-2025 Telephone encounter Note Prescription Refill Information The patient has been identified by name and date of : Yes Caregiver verified no other encounters exist for this prescription request: Yes Caregiver confirmed with patient/requestor that no other refills are due, in the near future, with this provider at this time: Yes The last office visit in the department: 01/18/25 Does the patient have a future office visit with this provider/department: Yes 07/26/25 Requested Prescriptions Refused Prescriptions Disp Refills ferrous sulfate 325 mg (65 mg iron) tablet 180 tablet 1 Sig: Take 1 tablet by mouth two times a day with meals. Refused By: DARCY RANDHAWA January 27, 2025 8:03 AM [facility] 01-27-2025 Miscellaneous Notes Prescription Refill Information The patient has been identified by name and date of : Yes Caregiver verified no other encounters exist for this prescription request: Yes Caregiver confirmed with patient/requestor that no other refills are due, in the near future, with this provider at this time: Yes The last office visit in the department: 01/18/25 Does the patient have a future office visit with this provider/department: Yes 07/26/25 Requested Prescriptions Refused Prescriptions Disp Refills ferrous sulfate 325 mg (65 mg iron) tablet 180 tablet 1 Sig: Take 1 tablet by mouth two times a day with meals. Refused By: DARCY RANDHAWA January 27, 2025 8:03 AM documented in this encounter [facility] 01-18-2025 Note HNO ID: [id number] Author: MARTHA BOSTON PA-C Service: ? Author Type: Physician Rigging And Controls Aircraft Mechanic Type: Progress Notes Filed: 01/18/2025 10:40 Note Text: Chief Complaint Patient presents with: 6 Month Exam HPI Michael Bates is a 69 year old male who presents here today for 6 month visit. Patient with hx of DM2, hyperlipidemia, HTN, GERD, Adjustment disorder, Carotid stenosis, BPH, Chronic neck pain, and those as below. Patient denies any concerns today. Past medical history, appointments, medications, [...] 08/04/[address] Duque Chronic sinusitis Claudication 06/04/2017 PVR's normal. Coronary atherosclerosis due to lipid rich plaque 01/20/[address] Kern. s/p RODDY to Ramus and RODDY to LAD placed 01/20/2017. COVID-19 virus infection 06/18/202106/2021 DDD (degenerative disc disease), cervical 01/20/2012 DDD (degenerative disc disease), lumbar 06/30/2016 Multi level, worse L2-L3 Diabetes ([facility]) Diabetic eye exam ([facility]) 03/19/2017 Last done: 10/01/2018 Elevated [...] ulnar artery (HCC) 03/06/2018 Ulnar artery aneurysm Right, s/p repair Unspecified pruritic disorder 03/02/2009 Previous Surgical History PAST SURGICAL HISTORY Procedure Laterality Date 2D ECHO (EXEP) 01/16/2017 EF=60%, 1+ MD and TI CATARACT EXTRACTION HX Left 10/2019 [...] EGD W/O BRSH SPEC VARICIES INJ 10/14/2022 IMMUNOCHEMICAL FECAL OCCULT BLOOD TEST 04/19/2019 Negative PAST [...] Allergies ALLERGIES Allergen Reactions Florinef [Fludrocor* Angioedema Losartan Angioedema Perfumes Other: See Comments sneezing Ranexa [Ranolazine] Other: See Comments Headache, nausea and nose bleed Current Medications Current Outpatient Medications on File Prior to Visit Medication Sig empagliflozin (JARDIANCE) 10 mg tablet Take 1 tablet by mouth once daily. Take 1 tablet once daily in the morning CPAP/BIPAP/OTHER APAP 5-20 cmH2O metFORMIN ER (GLUCOPHAGE XR) 500 mg 24 hr tablet Take 2 tablets by mouth two times a day. isosorbide mononitrate ER (IMDUR) 30 mg 24 hr tablet Take 1 tablet by mouth once daily. Per Cardio: [facility] Zinc Gluconate 50 mg tablet Take 50 mg by mouth once daily. ferrous sulfate 325 mg (65 mg iron) tablet Take 1 tablet by mo (more content not included)... [facility] 12-24-2024 Note HNO ID: [id number] Author: GENO PEREZ MA Service: ? Author Type: Digital Sales Planner Type: Progress Notes Filed: 12/26/2024 16:12 Note Text: Scan on 12/23/2024 6:40 PM by Provider, External, PA-C: Miscellaneous Imaging Scan on 12/23/2024 6:35 PM by Provider, External PA-C: Carotid dulplex US Scan on 12/23/2024 6:34 PM by Provider, External, PA-C: abd aortic [facility] 12-15-2024 History of Presen t illness Narrative Primary Care Pharmacy Panel Management This patient has been identified through Specialty Integration/[employer]Based [employer] Diabetes Registry Review by the primary care pharmacy team. After review, determined that the patient is not a candidate for pharmacy referral at this time due to previously declined pharmacy services. ^Contacted patient discuss consult agreement/services, and to schedule initial appointment. Patient was initially open to being re-referred however, he was only open to consider an in-person pharmacist visit, could not take any appointments, and was not willing to see a pharmacist at another location. Unfortunately, our pharmacy team is only on-site at [facility] on and patient was not willing to accept alternative scheduling options and ended up declining pharmacist services at this time. Thank you, Nirav Wilson, PharmD, BCACP documented in this encounter [facility] 12-15-2024 Note HNO ID: [id number] Author: NIRAV WILSON RPh Service: ? Author Type: Pharmacist Type: Progress Notes Filed: 12/15/2024 15:39 Note Text: Primary Care Pharmacy Panel Management This patient has been identified through [facility]ty Integration/[employer]-Based [employer] Diabetes Registry Review by the primary care pharmacy team. After review, determined that the patient is not a candidate for pharmacy referral at this time due to previously declined pharmacy services. Contacted patient discuss consult agreement/services, and to schedule initial appointment. Patient was initially open to being re-referred however, he was only open to consider an in-person pharmacist visit, could not take any appointments, and was not willing to see a pharmacist at another location. Unfortunately, our pharmacy team is only on-site at [place] location on and patient was not willing to accept alternative scheduling options and ended up declining pharmacist services at this time. Thank you, Silva ClaytonD, BCACP [facility] 12-15-2024 Note Patient Outreach (PM STOW) MICHAEL BATES ([id number]) 1955 M Date Time Provider Department 12/15/24 NIRAV WILSON PMSTOW During your visit today, we recorded the following information about you: Nirav Wilson [facility] 12/15/2024 3:39 PM Signed Primary Care Pharmacy Panel Management This patient has been identified through Specialty Integration/Value-Based [employer] Diabetes Registry Review by the primary care pharmacy team. After review, determined that the patient is not a candidate for pharmacy referral at this time due to previously declined pharmacy services. Contacted patient discuss consult agreement/services, and to schedule initial appointment. Patient was initially open to being re-referred however, he was only open to consider an in-person pharmacist visit, could not take any appointments, and was not willing to see a pharmacist at another location. Unfortunately, our pharmacy team is only on-site at [place] location on and patient was not willing to accept alternative scheduling options and ended up declining pharmacist services at this time. Thank you, Nirav Wilson PharmD, TAWANDACP Allergies As of Date: 12/15/2024 Noted Allergy Reaction FLORINEF (FLUDROCORTISONE) 04/25/2022 18 - Angioedema LOSARTAN 10/24/2023 18 - Angioedema PERFUMES 01/20/2012 14 - Other: See Comments Comments: sneezing RANEXA (RANOLAZINE) 09/06/2024 14 - Other: See Comments Comments: Headache, nausea and nose bleed Date Reviewed: 12/13/2024 Reviewed by: Molly Houser APRN.CERTIFIED ANESTHESIOLOGIST ASSISTANT - Fully Assessed Reason for Visit: Care Coordination [1288] Cmt: Panel Management Review for Pharmacist Referral for Diabetes Management Prescriptions as of 12/15/2024 - metFORMIN ER (GLUCOPHAGE XR) 500 mg 24 hr tablet Take 2 tablets by mouth two times a day. - isosorbide mononitrate ER (IMDUR) 30 mg 24 hr tablet Take 1 tablet by mouth once daily. Per Cardio: [facility] - empagliflozin (JARDIANCE) 10 mg tablet Take 1 tablet by mouth once daily. Take 1 tablet once daily in the morning - Zinc Gluconate 50 mg tablet Take 50 mg by mouth once daily. - ferrous sulfate 325 mg (65 mg iron) tablet Take 1 tablet by mouth two times a day with meals. - amLODIPine (NORVASC) 10 mg tablet Take 1 tablet by mouth once daily. Per [facility] - atorvastatin (LIPITOR) 80 mg tablet Take 1 tablet by mouth once daily. Managed by cardiology, Dr. Kern - omeprazole (PRILOSEC) 40 mg capsule Take 1 capsule by mouth once daily. Per [facility] - carvedilol (COREG) 3.125 mg tablet Take 1 tablet by mouth two times a day. Per [facility] - ticagrelor (BRILINTA) 90 mg tablet Take 1 tablet by mouth two times a day. Per [facility] - docosahexaenoic acid/epa (FISH OIL ORAL) Take by mouth as directed. - Blood-Glucose Meter monitoring kit Glucose Meter of Choice - Kit - Dx: Type 2 DM - Uncontrolled E11.65 - Lancets lancets Test blood sugar(s) 2 times daily. Dx: Type 2 DM - Uncontrolled E11.65 Insulin: No - blood sugar diagnostic (BLOOD GLUCOSE TEST) test strip Test blood sugar(s) 2 times daily. Dx: Type 2 DM - Uncontrolled E11.65 Insulin: No - nitroglycerin sublingual (NITROSTAT) 0.4 mg SL tablet Dissolve 1 tablet under the tongue every 5 minutes as needed for chest pain. - aspirin, enteric coated (ECOTRIN LOW STRENGTH) 81 mg EC tablet Take 1 tablet by mouth once daily. - Blood Pressure Monitor kit 1 Each once daily. 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] 12/04/2007 Unspecified pruritic disorder [L29.9] 03/02/2009 04/12/2020 Lumbago [M54.50] 02/09/2010 Sciatica [M54.30] 02/09/2010 Neck sprain and strain [S13.9XXA] 07/30/2010 08/30/2010 Other physical therapy [SBQ7098] 08/16/2010 08/30/2010 Essential hypertension, benign [I10] 01/17/2012 DDD (degenerative disc disease), cervical [M50.*01/20/2012 Cervical spondylosis [M47.812] 01/20/2012 Chronic sinusitis [J32.9] Hyperlipidemia [E78.5] 08/04/2015 Mixed hyperlipidemia [E78.2] 08/04/2015 Lumbar radiculopathy [M54.16] Chronic post-traumatic headache [G44.329] 08/04/2015 Bilateral occipital neuralgia [M54.81] 08/04/2015 Seborrheic dermatitis [L21.9] 08/04/2015 Elevated LFTs [R79.89] 08/05/2015 Carotid stenosis, asymptomatic, bilateral [I65.*08/09/2015 Neck pain, chronic [M54.2, G89.29] 10/16/2015 Cervicogenic headache [G44.86] 10/16/2015 DDD (degenerative disc disease), lumbar [M51.36*06/30/2016 Radicular pain of right lower extremity [M54.10]07/09/2016 Acute right-sided low back pain wit (more content not included)... [facility] 12-13-2024 History of Presen t illness Narrative Images from the original note were not included. 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 He has been sleeping in a recliner since his 8 yrs ago. We discussed JOSÉ ANTONIO, how it can cause/exacerbate other issues, that I want to test him for that first, treat it if he has it, then work on the other sleep issues especially sleep onset insomnia and PAMELA. He also has RLS. We briefly discussed PAP therapy as an introduction in case it proves necessary. - Polysomnogram (PSG) to evaluate for obstructive sleep apnea. Per pt choice will do at [facility]. To include RBD montage. Rx for zolpidem 5 mg to take at the sleep lab. - Discussed with the patient the possible diagnosis, causes, and conditions associated with obstructive sleep apnea. - Avoid driving when drowsy. Recommend that if you are dozing off while driving, that you do not drive until your sleepiness is appropriately treated. -Encouraged healthy lifestyle with adequate sleep ( 7-9 hours per night), diet and exercise. - Results are usually available within 7-10 business days. If you do not hear from us within 1-2 weeks after testing, please contact us directly. RLS -- If sleep apnea then will treat with PAP therapy and look for improvement in RLS. Normal iron level in 07/2024. He has DM so it's possible neuropathy could exacerbate, as well as lumbar radiculapathy. PAMELA -- Look for underlying sleep disorder such as sleep apnea causing dream enactment, if so will expect resolution with PAP therapy. If no JOSÉ ANTONIO then would start treating with melatonin; second line would be clonazepam. Chronic intermittent sleep onset insomnia -- consider melatonin first due to PAMELA. Recommend he get OOB if he can't sleep after 30 min, do something boring, only get back into bed when drowsy. EDS -- will look for improvement if JOSÉ ANTONIO and we treat it, as well as his other sleep issues. - Follow up visit 3 wks after PSG. Please schedule this appointment now to ensure your preferred time and location. Molly Houser APRN.CERTIFIED ANESTHESIOLOGIST ASSISTANT Here for follow up for discussion of PSG that was obtained due to snoring, frequent nocturnal awakening, non-restorative sleep, dream enactment behavior, sleep onset insomnia, excessive daytime sleepiness, RLS 11/09/24 PSG at [facility]: AHI 26 (4% scoring) Mean O2 91% Awake mean O2 93% O2 ira 81% O2 <=88% for 23.7 minutes No abnl behavior No RSWA All supine Interpreting physician recommends autoCPAP No improvement in his sleep since his initial visit Bruise on right forearm from PAMELA, threw his right arm and hit lamp Still sleeping in recliner (has been since his 's 8 yrs ago) Has sleep onset insomnia, can take hours Wakes in night due to pain and cats Gets 6 hrs of sleep Takes naps Has RLS 7 nights per week PATIENT-ENTERED QUESTIONNAIRE SLEEP SCORES 10/16/2015 07/09/2016 09/09/2018 PHQ-9 Score 14 1 0 11/07/2020 02/13/2021 04/19/2022 PROMIS Global Health - (T-Scores - the mean of general population = 50. Five points is a clinically meaningful difference.) Physical T-Score 32.4 29.6 29.6 Mental T-Score 33.8 33.8 33.8 ALLERGIES Allergen Reactions Florinef [Fludrocor* Angioedema Losartan Angioedema Perfumes Other: See Comments sneezing Ranexa [Ranolazine] Other: See Comments Headache, nausea and nose bleed CURRENT MEDICATIONS: metFORMIN ER (GLUCOPHAGE XR) 500 mg 24 hr tablet Take 2 tablets by mouth two times a day. isosorbide mononitrate ER (IMDUR) 30 mg 24 hr tablet Take 1 tablet by mouth once daily. Per Cardio: [facility] empagliflozin (JARDIANCE) 10 mg tablet Take 1 tablet by mouth once daily. Take 1 tablet once daily in the morning Zinc Gluconate 50 mg tablet Take 50 mg by mouth once daily. ferrous sulfate 325 mg (65 mg iron) tablet Take 1 tablet by mouth two times a day with meals. amLODIPine (NORVASC) 10 mg tablet Take 1 tablet by mouth once daily. Per [facility] atorvastatin (LIPITOR) 80 mg tablet Take 1 tablet by mouth once daily. Managed by cardiology, Dr. Kern omeprazole (PRILOSEC) 40 mg capsule Take 1 capsule by mouth once daily. Per [facility] ticagrelor (BRILINTA) 90 mg tablet Take 1 tablet by mouth two times a day. Per [facility] docosahexaenoic acid/epa (FISH OIL ORAL) Take by mouth as directed. Blood-Glucose Meter monitoring kit Glucose Meter of Choice - Kit - Dx: Type 2 DM - Uncontrolled E11.65 Lancets lancets Test blood sugar(s) 2 times daily. Dx: Type 2 DM - Uncontrolled E11.65 Insulin: No blood sugar diagnostic (BLOOD GLUCOSE TEST) test strip Test blood sugar(s) 2 times daily. Dx: Type 2 DM - Uncontrolled E11.65 Insulin: No nitroglycerin sublingual (NITROSTAT) 0.4 mg SL tablet Dissolve 1 tablet under the tongue every 5 minutes as needed for chest pain. aspirin, enteric coated (ECOTRIN LOW STRENGTH) 81 mg EC tablet Take 1 tablet by mouth once daily. Blood Pressure Monitor kit 1 Each once daily. Blood Glucose Control High and Low (ACCU-CHEK MEGHANA CONTROL SOLN) soln Use as directed as indicated to check quality of test strips carvedilol (COREG) 3.125 mg tablet Take 1 tablet by mouth two times a day. Per [facility] (Patient not taking: Reported on 07/20/2024) PHYSICAL EXAMINATION: Vital Signs: BP 129/80 Pulse 74 Resp 18 Wt 78.8 kg (173 lb 12.8 oz) SpO2 97% BMI 25.82 kg/m PHYSICAL EXAM: General appearance: pleasant, NAD Mental status: alert and oriented, able to provide own history Constitutional: WNL Skin: bruise on right forearm Neuro: No focal deficits observed, no tremors IMPRESSION: Obstructive sleep apnea (primary encounter diagnosis) Insomnia, unspecified type Rls (restless legs syndrome) Dream enactment behavior Non-restorative sleep Frequent nocturnal awakening Michael Bates is a 69 year old male with moderate JOSÉ ANTONIO, insomnia, RLS, PAMELA, non-restorative sleep, frequent nocturnal awakening, daytime sleepiness We discussed the results of his PSG. Recommend treatment with PAP therapy. He is willing as long as it's not cost-prohibitive. He wants to hold off on melatonin for insomnia and PAMELA, will try PAP therapy first. Discussed that our goal is to keep him safe. 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 [employer] or [employer] -- does either do home visit for PAP setup? Will CALL him with update (pt is illiterate) PLAN: - Will start Auto CPAP 5-20 cmH2O with a mask per pt preference . - I will have a prescription sent to a [employer]) company - TBD who will be calling you in the next 1-2 weeks or so. Please call them directly or us if you do not hear from them in this time frame. - You should be eligible for new supplies approximately every 3-6 months, depending on your insurance coverage. - If your mask doesn't fit well, call the [employer] company before 30 days are up to get a new mask without an additional charge. - Insurance requires regular usage and periodic office follow ups for PAP therapy, to continue to cover supplies. - Follow up for 31-90 day PAP visit, follow up scheduled for 3 mos Molly Houser APRN.MIGEL documented in this encounter [facility] 12-13-2024 Note HNO ID: [id number] Author: MOLLY HOUSER APRN.MIGEL Service: ? Author Type: Nurse Practitioner Type: Progress Notes Filed: 12/16/2024 21:29 Note Text: [facility] Follow up/ Established patient visit Date of last visit : 10/22/2024 The following Impression/Plan was copied and pasted from the patient's last Sleep Disorders Center visit on 10/22/24: IMPRESSION/PLAN: 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 He has been sleeping in a recliner since his 8 yrs ago. We discussed JOSÉ ANTONIO, how it can cause/exacerbate other issues, that I want to test him for that first, treat it if he has it, then work on the other sleep issues especially sleep onset insomnia and PAMELA. He also has RLS. We briefly discussed PAP therapy as an introduction in case it proves necessary. - Polysomnogram (PSG) to evaluate for obstructive sleep apnea. Per pt choice will do at [facility]. To include RBD montage. Rx for zolpidem 5 mg to take at the sleep lab. - Discussed with the patient the possible diagnosis, causes, and conditions associated with obstructive sleep apnea. - Avoid driving when drowsy. Recommend that if you are dozing off while driving, that you do not drive until your sleepiness is appropriately treated. -Encouraged healthy lifestyle with adequate sleep ( 7-9 hours per night), diet and exercise. - Results are usually available within 7-10 business days. If you do not hear from us within 1-2 weeks after testing, please contact us directly. RLS -- If sleep apnea then will treat with PAP therapy and look for improvement in RLS. Normal iron level in 07/2024. He has DM so it's possible neuropathy could exacerbate, as well as lumbar radiculapathy. PAMELA -- Look for underlying sleep disorder such as sleep apnea causing dream enactment, if so will expect resolution with PAP therapy. If no JOSÉ ANTONIO then would start treating with melatonin; second line would be clonazepam. Chronic intermittent sleep onset insomnia -- consider melatonin first due to PAMELA. Recommend he get OOB if he can't sleep after 30 min, do something boring, only get back into bed when drowsy. EDS -- will look for improvement if JOSÉ ANTONIO and we treat it, as well as his other sleep issues. - Follow up visit 3 wks after PSG. Please schedule this appointment now to ensure your preferred time and location. Molly Houser APRN.CERTIFIED ANESTHESIOLOGIST ASSISTANT Here for follow up for discussion of PSG that was obtained due to snoring, frequent nocturnal awakening, non-restorative sleep, dream enactment behavior, sleep onset insomnia, excessive daytime sleepiness, RLS 3/11/25 PSG at [facility]: AHI 26 (4% scoring) Mean O2 91% Awake mean O2 93% O2 ira 81% O2 <=88% for 23.7 minutes No abnl behavior No RSWA All supine Interpreting physician recommends autoCPAP No improvement in his sleep since his initial visit Bruise on right forearm from PAMELA, threw his right arm and hit lamp Still sleeping in recliner (has been since his 's 8 yrs ago) Has sleep onset insomnia, can take hours Wakes in night due to pain and cats Gets 6 hrs of sleep Takes naps Has RLS 7 nights per week PATIENT-ENTERED QUESTIONNAIRE SLEEP SCORES 10/16/2015 07/09/2016 09/09/2018 PHQ-9 Score 14 1 0 11/07/2020 02/13/2021 04/19/2022 PROMIS Global Health - (T-Scores - the mean of general population = 50. Five points is a clinically meaningful difference.) Physical T-Score 32.4 29.6 29.6 Mental T-Score 33.8 33.8 33.8 ALLERGIES Allergen Reactions Florinef [Fludrocor* Angioedema Losartan Angioedema Perfumes Other: See Comments sneezing Ranexa [Ranolazine] Other: See Comments Headache, nausea and nose bleed CURRENT MEDICATIONS: metFORMIN ER (GLUCOPHAGE XR) 500 mg 24 hr tablet Take 2 tablets by mouth two times a day. isosorbide mononitrate ER (IMDUR) 30 mg 24 hr tablet Take 1 tablet by mouth once daily. Per Cardio: [facility] empagliflozin (JARDIANCE) 10 mg tablet Take 1 tablet by mouth once daily. Take 1 tablet once daily in the morning Zinc Gluconate 50 mg tablet Take 50 mg by mouth once daily. ferrous sulfate 325 mg (65 mg iron) tablet Take 1 tablet by mouth two times a day with meals. amLODIPine (NORVASC) 10 mg tablet Take 1 tablet by mouth once daily. Per [facility] atorvastatin (LIPITOR) 80 mg tablet Take 1 tablet by mouth once daily. Managed by cardiology, Dr. Kern omeprazole (PRILOSEC (more content not included)... [facility] 12-08-2024 Evaluation note Diagnosis Onset Date Resolution Claudication of left lower extremity acute December 08, 2024 8:09am Bilateral carotid artery stenosis chronic December 08, 2024 8:09am History of coronary artery stent placement August 16, 2024 chronic December 08, 2024 8:09am Hyperlipidemia chronic December 08, 2024 8:09am Hypotension chronic December 08 8:09am Syncope October,December 08 8:09am [facility] Work Phone: 1(908) 536-850404-09-2025 Evaluation note* Diagnosis Onset Date Resolution Status Admit Date Claudication of left lower extremity acute December 08, 2024 8:09am Bilateral carotid artery stenosis chronic December 08, 2024 8:09am History of coronary artery stent placement August 16, 2024 chronic December 08, 2 025 8:09am Hyperlipidemia chronic December 08, 2024 8:09am Hypotension chronic December 08 8:09am Syncope October, chronic December 08 8:09am Claudication of left lower extremity acute February 22, 2025 10:55am Bilateral carotid artery stenosis chronic February 22, 2025 10:55am History of coronary artery stent placement August 16, 2024 chronic February 22, 2 025 10:55am Hyperlipidemia chronic February 22, 2025 10:55am Hypotension chronic February 22 10:55am Syncope October, chronic February 22 10:55am [facility] Work Phone: 1(268) 800-835003-18-2025 Telephone encounter Note* Telephone Encounter - Molly Houser APRN.CNP - 11/16/2024 5:58 PM EDT Will discuss at his upcoming follow up appointment. 11/09/24 PSG at [facility]: AHI 26 (4% scoring) Mean O2 91% Awake mean O2 93% O2 ira 81% O2 <=88% for 23.7 minutes No abnl behavior No RSWA All supine Interpreting physician recommends autoCPAP Molly Houser APRN.CNP [facility]03-18-2025 Miscellaneous Notes* Telephone Encounter - Molly Houser APRN.CNP - 11/16/2024 5:58 PM EDT Will discuss at his upcoming follow up appointment. 11/09/24 PSG at [facility]: AHI 26 (4% scoring) Mean O2 91% Awake mean O2 93% O2 ira 81% O2 <=88% for 23.7 minutes No abnl behavior No RSWA All supine Interpreting physician recommends autoCPAP Molly Houser APRN.CERTIFIED ANESTHESIOLOGIST ASSISTANT * Telephone Encounter - Karin Langston LPN - 11/15/2024 11:02 AM EDT Please see attached PSG results. Scan on 11/15/2024 9:56 AM by Sonido Lemon PA-C: [facility] PSG 11/09/24 Karin Langston LPN [facility] Telephone encounter Note * Telephone Encounter - Karin Langston LPN - 11/15/2024 11:02 AM EDT Please see attached PSG results. Scan on 11/15/2024 9:56 AM by Sonido Lemon PA-C: [facility] PSG 11/09/24 Karin Langston LPN [facility]02-24-2025 NoteHNO ID: [id number] Author: LUIS E AGUDELO LPN Service: ? Author Type: LICENSED NURSE Type: Progress Notes Filed: 10/25/2024 09:51 Note Text: Scan on 10/25/2024 9:20 AM by Sonido Lemon PA-C: [facility] History of Present illness Narrative* Luis E Agudelo LPN - 10/25/2024 9:51 AM EST Scan on 10/25/2024 9:20 AM by Provider, External, PA-C: Consultation - Ophthalmology [facility]25 NoteHNO ID: [id number] Author: LUIS E AGUDELO LPN Service: ? Author Type: LICENSED NURSE Type: Progress Notes Filed: 10/25/2024 07:02 Note Text: Scan on 10/23/2024 5:15 PM by ProviderSonido PA-C: [facility] History of Present illness Narrative* Luis E Agudelo LPN - 10/25/2024 7:02 AM EST Scan on 10/23/2024 5:15 PM by ProviderSonido PA-C: MRI [facility] Instructions* Patient Instructions* Molly Houser APRN.CERTIFIED ANESTHESIOLOGIST ASSISTANT - 10/22/2024 1:32 PM EST Images from the original note were not included. Sleep Apnea What is sleep apnea? Sleep apnea is a serious sleep disorder that occurs when a person s breathing is interrupted duringsleep. People with untreated sleep apnea stop breathing repeatedly during their sleep, sometimes hundreds of times during the night. There are two types of sleep apnea: obstructive and central. Obstructive sleep apnea (JOSÉ ANTONIO) is the more common of the two. Obstructive sleep apnea occurs as repetitive episodes of complete or partial upper airway blockage during sleep. During an apnea episode, the diaphragm and chest muscles work harder as the pressure increases to open the airway. Breathing usually resumes with a loud gasp or body jerk. These episodes can interfere with sound sleep, reduce the flow of oxygen to vital organs, and cause heart rhythm irregularities. In central sleep apnea (CSA), the airway is not blocked but the brain fails to signal the muscles to breathe due to instability in the respiratory control center. Central apnea is named as such because it is related to the function of the central nervous system. Who gets sleep apnea? Sleep apnea occurs in about 25 percent of men and nearly 10 percent of women. Sleep apnea can affect people of all ages, including babies and children and particularly people over the age of forty and those who are overweight. Certain physical traits and clinical features are common in patients with obstructive sleep apnea. These include excessive weight, large neck, and structural abnormalities reducing the diameter of the upper airway, such as nasal obstruction, a low-hanging soft palate, enlarged tonsils, or a small jaw with an overbite. The figures below illustrate the upper airway in normal sleep: (A) person is lying on back, face up, and (B) in obstructive sleep apnea. The arrows indicate complete obstruction in the back of the throat. Normal (A) Sleep apnea (B): What causes sleep apnea? Obstructive sleep apnea is caused by a blockage of the airway, usually when the soft tissues in therear of the throat collapse during sleep. Central sleep apnea is usually observed in patients with central nervous system dysfunction, such as following a stroke or in patients with neuromuscular diseases like amyotrophic lateral sclerosis. It is also common in patients with heart failure and otherforms of cardiac and pulmonary disease. What are the symptoms of sleep apnea? Often the first signs of obstructive sleep apnea are recognized not by the patient, but by the bed partner. Many of those affected have no sleep complaints. The most common symptoms of JOSÉ ANTONIO include: Snoring Daytime sleepiness or fatigue Restlessness during sleep Sudden awakenings with a sensation of gasping or choking Dry mouth or sore throat upon awakening Intellectual impairment, such as trouble concentrating, forgetfulness, or irritability Night sweats Sexual dysfunction Headaches People with central sleep apnea more often report recurrent awakenings or insomnia, although they may also experience a choking or gasping sensation with sudden awakenings. Symptoms in children may not be as obvious and include: Poor school performance Sluggishness or sleepiness, often misinterpreted as laziness in the classroom Daytime mouth breathing and swallowing difficulty Inward movement of the ribcage when inhaling Unusual sleeping positions, such as sleeping on the hands and knees, or with the neck hyper-extended Excessive sweating at night Learning and behavioral disorders Bedwetting What are the effects of sleep apnea? If left untreated, sleep apnea can result in a number of health problems including hypertension, stroke, arrhythmias, cardiomyopathy (enlargement of the muscle tissue of the heart), congestive heart failure, diabetes, and heart attacks. In addition, untreated sleep apnea may be responsible for job i mpairment, work-related accidents, and motor vehicle crashes as well as academic underachievement. How is sleep apnea diagnosed? The diagnosis of sleep apnea is relatively straightforward, based on sleep history and an overnightsleep study called a polysomnogram. Polysomnogram is performed in a sleep laboratory under the direct supervision of a trained technologist. During the test, a variety of body functions, such as the e lectrical activity of the brain, eye movements, muscle activity, heart rate, breathing patterns, air flow, and blood oxygen levels are recorded at night during sleep. After the study is completed, the number of times breathing is impaired during sleep is tallied and the severity of sleep apnea is graded. In some cases, a multiple sleep latency test is performed on the day after the overnight testto measure the speed of falling asleep. In this test, patients are given several opportunities to fall asleep during the course of a day when they normally would be awake. If you have symptoms of sleep apnea, your doctor may ask you to have a sleep evaluation in a sleep disorder center. What are the treatments for sleep apnea? Conservative treatments: In mild cases of sleep apnea, conservative therapy may be all that is needed. Overweight persons can benefit from losing weight. Even a ten percent weight loss can reduce thenumber of apneic events for most patients. Individuals with apnea should avoid the use of alcohol and sleeping pills, which make the airway more likely to collapse during sleep and prolong the apneicperiods. In some patients with mild sleep apnea, breathing pauses occur only when they sleep on their backs. In such cases, using pillows and other devices that help them sleep in a side position maybe helpful. People with sinus problems or nasal congestion (such people are more likely to experience sleep apnea) should use nasal sprays or breathing strips to reduce snoring and improve airflow for more comfortable nighttime breathing. Avoiding sleep deprivation is important for all patients with sleep disorders. Mechanical therapy: Continuous Positive Airway Pressure (CPAP) is the preferred initial treatment for most people with obstructive sleep apnea. With CPAP, patients wear a mask over their nose and/or mouth. An air blower forces air through the nose and/or mouth. The air pressure is adjusted so that it is just enough to prevent the upper airway tissues from collapsing during sleep. The pressure is constant and continuous. CPAP prevents airway closure while in use, but apnea episodes return when CPAP is stopped or it is used improperly. Other styles and types of positive airway pressure devices are available for people who have difficulty tolerating CPAP. These include Bilevel Positive Airway P ressure (BiPAP), Auto Positive Airway Pressure (AutoPAP), Auto/Adaptive Servo- Ventilation (ASV), etc Oral appliances: For patients with mild/moderate sleep apnea, dental appliances or oral mandibular advancement devices that prevent the tongue from blocking the throat and/or advance the lower jaw forward can be made. These devices help keep the airway open during sleep. A sleep specialist and granular operator (with expertise in oral appliances for this purpose) should jointly determine if this treatment is best for you. Surgery: Surgical procedures may help people with sleep apnea. There are many types of surgical procedures, some of which are performed as outpatient procedures. Surgery is reserved for people who have excessive or malformed tissue obstructing airflow through the nose or throat, such as a deviated nasal septum, markedly enlarged tonsils, or small lower jaw with an overbite that causes the throat to be abnormally narrow. These procedures are typically performed after sleep apnea has failed to respond to conservative measures and a trial of positive airway pressure treatment. Types of surgery include: Somnoplasty: A minimally invasive procedure that uses radiofrequency energy to reduce the soft tissue in the upper airway. Uvulopalatopharyngoplasty (UPPP): A procedure that removes soft tissue on the back of the throat and palate, increasing the width of the airway at the throat opening. Maxillary/Mandibular advancement surgery: A surgical correction of certain facial abnormalities or throat obstructions that contribute to sleep apnea. This is an invasive procedure that is reserved for patients with severe sleep apnea with head-face abnormalities. Nasal surgery: Correction of nasal obstructions, such as a deviated septum. Hypoglossal nerve stimulator: FDA approved 2013. (Implant that sends a lead that goes to bottom of tongue to stimulate it forward out of the area of the back of the throat) Resources: The [facility] Guide to Sleep Disorders by Kemi Aguirre DO [employer] [address] [place] [address] [address] [facility]. [id number] [email or web address]/ [place] [employer] [address] [place] [address], [address] [place] [address] [email or web address] documented in this encounter[facility] History of Present illness Narrative* Molly Houser APRN.CNP - 10/22/2024 1:00 PM EST Images from the original note were not included. [facility] New Patient Evaluation PATIENT NAME: Michael Bates DATE OF SERVICE: October 22, 2024 CONSULTING PROVIDER: Nadir Grady [address] [facility] [address] REASON FOR CONSULT: Nadir Grady sends the patient for an opinion about hypersomnolence, snores, sleep initiation dysfunction. My findings and recommendations will be transmitted electronically via shared medical record to the consulting provider. HPI: Michael Bates is a 69 year old male. Sleep-related history: he describes his sleep as not the greatest, that has been the case for years, has nights when he doesn't sleep well. His son of cancer in May 2024. Another son is still living. SLEEP-WAKE SCHEDULE Bedtime: 9-930 PM. He has a hard time falling asleep. Time to fall asleep: can take 3 hours or he might not fall asleep at all, has sleep onset insomnia about 3 nights per week Sometimes his head pain keeps him awake. Wake time: 5 AM, without an alarm. (Cats) After falling asleep: he wakes up 2+ time(s) per night, because of cats, pain. On weekends, he maintains the same sleep schedule. Average total sleep time (in a 24 hour period): 6 hours. SLEEP-RELATED DETAILS Preferred sleep position: reclined in lounge chair for past 8 yrs (since his ) Breathing disturbances and other behaviors during sleep: snoring. Bruxism: No GERD or aspiration: No Waking up with heart pounding or racing: No Anxiety or rumination: No He reports having an urge to move the legs. The urge to move the legs only occurs in the evening ornighttime. The urge to move the legs begins or worsens during periods of rest or inactivity (e.g. lying or sitting). The urge to move the legs is partially or totally relieved by movements such as walking or stretching, at least as long as the activity continues. The urge to move the legs occurs 7 nights per week and began 3 years ago. There is no history of iron deficiency or anemia. He has not been told that he has leg kicking during sleep. The patient reports having had the following: Acting out dreams. 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 Excessive Daytime sleepiness/fatigue has been a problem for many years. There is no history of a viral illness or significant head injury prior tothe start of daytime sleepiness. He does not report sleep paralysis or sleep-related hallucinations or cataplexy WAKE-RELATED DETAILS He does not work. He does have difficulty with memory or concentration. He denies falling asleep or dozing off when driving. He does take naps. Frequency: daily, Duration: 1 hr usually, but could be longer. Naps are not refreshing. He does not drink caffeinated beverages. He has lost 20 pounds since 1 yr. Patient Questionnaires Sleep Scores 09/09/2018 PHQ-9 Score 0 04/19/2022 PROMIS Global Health - (T-Scores - the mean of general population = 50. Five points is a clinicallymeaningful difference.) Physical T-Score 29.6 Mental T-Score 33.8 PAST TREATMENTS: None PRIOR SLEEP STUDIES: None OTHER RELEVANT LABS AND STUDIES: 10/10/23 Echo EF 60% Latest Reference Range & Units 07/30/19 09:58 06/26/22 14:24 Ferritin 30.3 - 565.7 ng/mL 37.0 29.7 (L) (L): Data is abnormally low Latest Reference Range & Units 07/28/19 07:37 08/13/19 07:43 06/26/22 14:24 07/10/22 10:41 08/21/22 10:05 07/20/24 08:25 Iron 41 - 186 ug/dL 52 49 40 (L) 51 74 79 (L): Data is abnormally low PAST MEDICAL HISTORY Diagnosis Date Acute right-sided [...] Date 2D ECHO (EXEP) 01/16/2017 EF=60%, 1+ MD and TI CATARACT EXTRACTION HX Left 10/2019 [...] 07/01/2018 negative STRESS TEST NUCLEAR 07/2019 negative ACTIVE PROBLEM LIST Migraine Variant Adjustment Disorder [...] Coronary Stent Placement Diabetic Eye Exam ([facility]) Leg Pain, Bilateral Medicare Annual Wellness Visit, Subsequent Gerd Without Esophagitis Neuropathy Primary Insomnia Abnormal Dreams Medication Management Illiteracy Anemia of Chronic Disease History of Covid-19 Uncontrolled Type 2 Diabetes Mellitus With Hyperglycemia (Hcc) Blood Sugar Increased Iron Deficiency Anemia Advance Directive Discussed With Patient Elevated Psa Allergies As of Date: 10/22/2024 Allergen Noted Reaction FLORINEF [FLUDROCORTISONE] 04/25/2022 Angioedema LOSARTAN 10/24/2023 Angioedema PERFUMES 01/20/2012 Other: See Comments RANEXA [RANOLAZINE] 09/06/2024 Other: See Comments Fully Assessed 10/22/2024 CURRENT MEDICATIONS: metFORMIN ER (GLUCOPHAGE XR) 500 mg 24 hr tablet Take 2 tablets by mouth two times a day. isosorbide mononitrate ER (IMDUR) 30 mg 24 hr tablet Take 1 tablet by mouth once daily. Per Cardio:[facility] empagliflozin (JARDIANCE) 10 mg tablet Take 1 tablet by mouth once daily. Take 1 tablet once daily in the morning Zinc Gluconate 50 mg tablet Take 50 mg by mouth once daily. ferrous sulfate 325 mg (65 mg iron) tablet Take 1 tablet by mouth two times a day with meals. amLODIPine (NORVASC) 10 mg tablet Take 1 tablet by mouth once daily. Per [facility] atorvastatin (LIPITOR) 80 mg tablet Take 1 tablet by mouth once daily. Managed by cardiology, Dr. Kern omeprazole (PRILOSEC) 40 mg capsule Take 1 capsule by mouth once daily. Per [facility] ticagrelor (BRILINTA) 90 mg tablet Take 1 tablet by mouth two times a day. Per [facility] docosahexaenoic acid/epa (FISH OIL ORAL) Take by mouth as directed. Blood-Glucose Meter monitoring kit Glucose Meter of Choice - Kit - Dx: Type 2 DM - Uncontrolled E11.65 Lancets lancets Test blood sugar(s) 2 times daily. Dx: Type 2 DM - Uncontrolled E11.65 Insulin: No blood sugar diagnostic (BLOOD GLUCOSE TEST) test strip Test blood sugar(s) 2 times daily. Dx: Type 2 DM - Uncontrolled E11.65 Insulin: No nitroglycerin sublingual (NITROSTAT) 0.4 mg SL tablet Dissolve 1 tablet under the tongue every 5 minutes as needed for chest pain. aspirin, enteric coated (ECOTRIN LOW STRENGTH) 81 mg EC tablet Take 1 tablet by mouth once daily. Blood Pressure Monitor kit 1 Each once daily. Blood Glucose Control High and Low (ACCU-CHEK MEGHANA CONTROL SOLN) soln Use as directed as indicatedto check quality of test strips zolpidem (AMBIEN) 5 mg tablet Take 1 tablet by mouth one time only for 1 dose. FOR INSOMNIA. Take at the sleep lab before sleep study. carvedilol (COREG) 3.125 mg tablet Take 1 tablet by mouth two times a day. Per [facility] (Patient not taking: Reported on 07/20/2024) Prior Hypersomnia/Narcolepsy Medications (20 years) No data to display Prior RLS Medications (last 20 years) 10/15/2022 04:17 RLS Medications meperidine HCl/PF 12.5 mg, INTRAVENOUS, EVERY 10 MINUTES NEEDED, 2 doses, Starting on Fri10/14/22 at 1158, Until Fri10/15/22 at 0417, for shivering May Repeat 12.5 mg in 10 minutes X1 Recovery or Phase I (only) -Discontinued (AUTO DC AT D) Details Hospital medication Prior Insomnia Medications (last 20 years) 10/22/2024 Insomnia Medications zolpidem tartrate 5 mg ONCE FOR INSOMNIA. Take at the sleep lab before sleep study. ORAL Details Outpatient prescription Medication marked as long-term Review of Systems Constitutional: Positive for fatigue and recent unintentional weight change. Cardiovascular: Negative for palpitations. Gastrointestinal: Negative for heartburn. Genitourinary: Negative for nocturia. Neurological: Positive for headaches. Negative for memory loss. SOCIAL HISTORY: Social History Tobacco Use Smoking status: Never Smokeless tobacco: Former Types: Chew Quit date: 07/02/2014 Tobacco comments: 1 can of chewing tobacco every 3 days PT QUIT 2015 Vaping Use Vaping status: Never Used Substance Use Topics Alcohol use: No Drug use: No FAMILY HISTORY: FAMILY HISTORY Problem Relation Age of Onset Lung Cancer Mother lung Coronary Artery Disease Sister former smoker Stroke Sister other (neurofibromatosis) Son from mother FH: brother has isomnia PHYSICAL EXAMINATION: Vital Signs: BP 131/76 (BP Position: Sitting, BP Cuff Size: Large Adult) Pulse 72 Resp 18 Wt 79.4 kg (175 lb) SpO2 97% BMI 25.99 kg/m PHYSICAL EXAM: General appearance: pleasant, NAD Mental status: alert and oriented, able to provide own history Constitutional: WNL Skin: No visible rashes on exposed skin Neuro: No focal deficits observed, no tremors ENT : Posterior airspace: Senior tongue position 2, retrognathia absent. Overbite absent. High arched palate present. Tongue scalloping/ridging present. 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 He has been sleeping in a recliner since his 8 yrs ago. We discussed JOSÉ ANTONIO, how it can cause/exacerbate other issues, that I want to test him for that first,treat it if he has it, then work on the other sleep issues especially sleep onset insomnia and PAMELA.He also has RLS. We briefly discussed PAP therapy as an introduction in case it proves necessary. - Polysomnogram (PSG) to evaluate for obstructive sleep apnea. Per pt choice will do at [facility]. To include RBD montage. Rx for zolpidem 5 mg to take at the sleep lab. - Discussed with the patient the possible diagnosis, causes, and conditions associated with obstructive sleep apnea. - Avoid driving when drowsy. Recommend that if you are dozing off while driving, that you do not drive until your sleepiness is appropriately treated. -Encouraged healthy lifestyle with adequate sleep ( 7-9 hours per night), diet and exercise. - Results are usually available within 7-10 business days. If you do not hear from us within 1-2 weeks after testing, please contact us directly. RLS -- If sleep apnea then will treat with PAP therapy and look for improvement in RLS. Normal ironlevel in 07/2024. He has DM so it's possible neuropathy could exacerbate, as well as lumbar radiculapathy. PAMELA -- Look for underlying sleep disorder such as sleep apnea causing dream enactment, if so will expect resolution with PAP therapy. If no JOSÉ ANTONIO then would start treating with melatonin; second line would be clonazepam. Chronic intermittent sleep onset insomnia -- consider melatonin first due to PAMELA. Recommend he get OOB if he can't sleep after 30 min, do something boring, only get back into bed when drowsy. EDS -- will look for improvement if JOSÉ ANTONIO and we treat it, as well as his other sleep issues. - Follow up visit 3 wks after PSG. Please schedule this appointment now to ensure your preferred time and location. Molly Houser APRN.CNP I spent a total of 62 minutes on the date of the service which included preparing to see the patient, [id number] patient care, completing clinical documentation, performing a medically appropriate examination, counseling and educating the patient/family/caregiver, and ordering medications, tests,or procedures. documented [facility] NoteHNO ID: [id number] Author: MOLLY HOUSER APRN.CNP Service: ? Author Type: Nurse Practitioner Type: Progress Notes Filed: 10/22/2024 13:57 Note Text: [facility] New Patient Evaluation PATIENT NAME: Michael Bates DATE OF SERVICE: October 22, 2024 CONSULTING PROVIDER: Nadir Grady [address] [facility] [place] [address] REASON FOR CONSULT: Nadir Grady sends the patient for an opinion about hypersomnolence, snores, sleep initiation dysfunction. My findings and recommendations will be transmitted electronically via shared medical record to the consulting provider. HPI: Michael Bates is a 69 year old male. Sleep-related history: he describes his sleep as not the greatest, that has been the case for years, has nights when he doesn't sleep well. His son of cancer in May 2024. Another son is still living. SLEEP-WAKE SCHEDULE Bedtime: 9-930 PM. He has a hard time falling asleep. Time to fall asleep: can take 3 hours or he might not fall asleep at all, has sleep onset insomnia about 3 nights per week Sometimes his head pain keeps him awake. Wake time: 5 AM, without an alarm. (Cats) After falling asleep: he wakes up 2+ time(s) per night, because of cats, pain. On weekends, he maintains the same sleep schedule. Average total sleep time (in a 24 hour period): 6 hours. SLEEP-RELATED DETAILS Preferred sleep position: reclined in lounge chair for past 8 yrs (since his ) Breathing disturbances and other behaviors during sleep: snoring. Bruxism: No GERD or aspiration: No Waking up with heart pounding or racing: No Anxiety or rumination: No He reports having an urge to move the legs. The urge to move the legs only occurs in the evening or nighttime. The urge to move the legs begins or worsens during periods of rest or inactivity (e.g. lying or sitting). The urge to move the legs is partially or totally relieved by movements such as walking or stretching, at least as long as the activity continues. The urge to move the legs occurs 7 nights per week and began 3 years ago. There is no history of iron deficiency or anemia. He has not been told that he has leg kicking during sleep. The patient reports having had the following: Acting out dreams. Frequency: once a month, Time of night: unknown, Dream content: fighting, he hit the dresser as well as the lamp, once fell out of bed trying to kick someone; most recent 3 mos ago Nightmares, occas yells (son hears him) Excessive daytime sleepiness / fatigue is a problem. Excessive Daytime sleepiness/fatigue has been a problem for many years. There is no history of a viral illness or significant head injury prior to the start of daytime sleepiness. He does not report sleep paralysis or sleep-related hallucinations or cataplexy WAKE-RELATED DETAILS He does not work. He does have difficulty with memory or concentration. He denies falling asleep or dozing off when driving. He does take naps. Frequency: daily, Duration: 1 hr usually, but could be longer. Naps are not refreshing. He does not drink caffeinated beverages. He has lost 20 pounds since 1 yr. Patient Questionnaires Sleep Scores 09/09/2018 PHQ-9 Score 0 04/19/2022 PROMIS Global Health - (T-Scores - the mean of general population = 50. Five points is a clinically meaningful difference.) Physical T-Score 29.6 Mental T-Score 33.8 PAST TREATMENTS: None PRIOR SLEEP STUDIES: None OTHER RELEVANT LABS AND STUDIES: 10/10/23 Echo EF 60% Latest Reference Range AND Units 07/30/19 09:58 06/26/22 14:24 Ferritin 30.3 - 565.7 ng/mL 37.0 29.7 (L) (L): Data is abnormally low Latest Reference Range AND Units 07/28/19 07:37 08/13/19 07:43 06/26/22 14:24 07/10/22 10:41 08/21/22 10:05 07/20/24 08:25 Iron 41 - 186 ug/dL 52 49 40 (L) 51 74 79 (L): Data is abnormally low PAST MEDICAL HISTORY Diagnosis Date Acute right-sided [...] disease), cervical 01/20/2012 DDD (degenerative disc disease), lumb (more content not included)...[facility]02-06-2025 Telephone encounter Note* Telephone Encounter - Martha Boston PA-C - 10/07/2024 2:28 PM EST Noted. [facility]02-06-[facility] Miscellaneous Notes* Telephone Encounter - Martha Boston PA-C - 10/07/2024 2:28 PM EST Noted. * Telephone Encounter - Luis E Agudelo LPN - 10/07/2024 2:16 PM EST Pt notified of results and instructions. Pt verbalizes understanding. Pt prefers just to see pain medicine for now. Does not want to try OTC Flonase. States he gets thrush from nasal sprays. Luis E Agudelo LPN * Telephone Encounter - Martha Boston PA-C - 10/07/2024 1:13 PM EST Let patient know that his MRI is benign. See if patient is willing to return to neuro for management or if he prefers to wait and see pain medicine? He has very mild thickening of the left maxillary sinus and a small right maxillary retention cyst.these would not be causing the type of headache he is currently experiencing. If he is willing, he could trial OTC flonase to help treat any sinus symptoms. It's just unlikely that this will help hisheadache symptom. Martha Boston PA-C documented in this encounterOhio [facility]02-[facility] Telephone encounter Note * Telephone Encounter - Luis E Agudelo LPN - 10/07/2024 2:16 PM EST Pt notified of results and instructions. Pt verbalizes understanding. Pt prefers just to see pain medicine for now. Does not want to try OTC Flonase. States he gets thrush from nasal sprays. Luis E Agudelo LPN [facility]02-06-2025 Telephone encounter Note* Telephone Encounter - Martha Boston PA-C - 10/07/2024 1:13 PM EST Let patient know that his MRI is benign. See if patient is willing to return to neuro for management or if he prefers to wait and see pain medicine? He has very mild thickening of the left maxillary sinus and a small right maxillary retention cyst.these would not be causing the type of headache he is currently experiencing. If he is willing, he could trial OTC flonase to help treat any sinus symptoms. It's just unlikely that this will help hisheadache symptom. Martha Boston PA-C [facility]02-06-[facility] History of Present illness Narrative* Yovanny Wright RT(R) - 10/07/2024 11:00 AM EST Radiology Service Progress Note DATE OF SERVICE: October 07, 2024 TIME: 11:22 AM PATIENT IDENTITY VERIFICATION COMPLETED USING TWO (2) STANDARD IDENTIFIERS: Name and Date of confirmed by patient verbally. FALL SCREENING: Has the patient had 2 falls in the last year or 1 fall with injury or currently using an Ambulatory Assistive Device (Walker, Cane, Wheelchair, Crutches, etc.)? No PATIENT GENDER DATA: Assigned male at PATIENT RELEVANT IMPLANT DATA REVIEWED: Yes PATIENT PRESENTS WITH AN IMPLANTABLE OR ATTACHED SOLAR SALES REPRESENTATIVE AND ASSESSOR: No ALLERGIES: Reviewed and unchanged CONTRAST ALLERGY: NO. EXAM: MRI - CONTRAST TYPE: GROUP II PERIPHERAL IV DATA: Ambulatory: A peripheral IV was started in the Right antecubital site with a Angio cath: 22 gauge. RADIOLOGY DEPARTMENT: MR; Exam(s) Completed: Head: Routine Brain SIGNATURE: RT Valarie(R) PATIENT NAME: Michael Bates DATE: October 07, 2024 TIME: 11:22 AM documented in this encounterOhio [facility]02-[facility]-2025 NoteHNO ID: [id number] Author: JOSSELIN, YOVANNY, RT(R) Service: ? Author Type: Technologist Type: Progress Notes Filed: 10/07/2024 11:30 Note Text: Radiology Service Progress Note DATE OF SERVICE: October 07, 2024 TIME: 11:22 AM PATIENT IDENTITY VERIFICATION COMPLETED USING TWO (2) STANDARD IDENTIFIERS: Name and Date of confirmed by patient verbally. FALL SCREENING: Has the patient had 2 falls in the last year or 1 fall with injury or currently using an Ambulatory Assistive Device (Walker, Cane, Wheelchair, Crutches, etc.)? No PATIENT GENDER DATA: Assigned male at PATIENT RELEVANT IMPLANT DATA REVIEWED: Yes PATIENT PRESENTS WITH AN IMPLANTABLE OR ATTACHED SOLAR SALES REPRESENTATIVE AND ASSESSOR: No ALLERGIES: Reviewed and unchanged CONTRAST ALLERGY: NO. EXAM: MRI - CONTRAST TYPE: GROUP II PERIPHERAL IV DATA: Ambulatory: A peripheral IV was started in the Right antecubital site with a Angio cath: 22 gauge. RADIOLOGY DEPARTMENT: MR; Exam(s) Completed: Head: Routine Brain SIGNATURE: RT Valarie(R) PATIENT NAME: Michael Bates DATE: October 07, 2024 TIME: 11:22 [facility]02-06-2025 NoteHNO ID: [id number] Author: MARTHA BOSTON PA-C Service: ? Author Type: Physician Rigging And Controls Aircraft Mechanic Type: Progress Notes Filed: 10/07/2024 09:53 Note Text: Chief Complaint Patient presents with: Head Pain: X 1 week HPI Michael Bates is a 69 year old male who presents here today for headache.. Patient reports a new headache that isn't similar to ones he has had in the past. States he has one spot on the top of his head that is where the headache is located. States it feels like a knife is going into that spot. No point tenderness. Had a fall in July but denies head injury. Patient states he's not taking isosorbide right now. Is scheduled to see Dr. Paz (pain med). Past medical history, appointments, medications, allergies reviewed. [...] lumbar 06/30/2016 Multi level, worse L2-L3 Diabetes ([facility]) Diabetic eye exam ([facility]) 03/19/2017 Last done: 10/01/2018 Elevated [...] Date 2D ECHO (EXEP) 01/16/2017 EF=60%, 1+ MD and TI CATARACT EXTRACTION HX Left 10/2019 [...] Allergies ALLERGIES Allergen Reactions Florinef [Fludrocor* Angioedema Losartan Angioedema Perfumes Other: See Comments sneezing Ranexa [Ranolazine] Other: See Comments Headache, nausea and nose bleed Current Medications Current Outpatient Medications on File Prior to Visit Medication Sig metFORMIN ER (GLUCOPHAGE XR) 500 mg 24 hr tablet Take 2 tablets by mouth two times a day. isosorbide mononitrate ER (IMDUR) 30 mg 24 hr tablet Take 1 tablet by mouth once daily. Per Cardio: [facility] empagliflozin (JARDIANCE) 10 mg tablet Take 1 tabl (more content not included)...[facility]02-06-2025 History of Present illness Narrative* Martha Boston PA-C - 10/07/2024 8:52 AM EST Chief Complaint Patient presents with: Head Pain: X 1 week HPI Michael Bates is a 69 year old male who presents here today for headache.. Patient reports a new headache that isn't similar to ones he has had in the past. States he has one spot on the top of his head that is where the headache is located. States it feels like a knife is going into that spot. No point tenderness. Had a fall in July but denies head injury. Patient states he's not taking isosorbide right now. Is scheduled to see Dr. Paz (pain med). Past medical history, appointments, medications, allergies reviewed. [...] Date 2D ECHO (EXEP) 01/16/2017 EF=60%, 1+ MD and TI CATARACT EXTRACTION HX Left 10/2019 [...] Allergies ALLERGIES Allergen Reactions Florinef [Fludrocor* Angioedema Losartan Angioedema Perfumes Other: See Comments sneezing Ranexa [Ranolazine] Other: See Comments Headache, nausea and nose bleed Current Medications Current Outpatient Medications on File Prior to Visit Medication Sig metFORMIN ER (GLUCOPHAGE XR) 500 mg 24 hr tablet Take 2 tablets by mouth two times a day. isosorbide mononitrate ER (IMDUR) 30 mg 24 hr tablet Take 1 tablet by mouth once daily. Per Cardio:[facility] empagliflozin (JARDIANCE) 10 mg tablet Take 1 tablet by mouth once daily. Take 1 tablet once daily in the morning Zinc Gluconate 50 mg tablet Take 50 mg by mouth once daily. ferrous sulfate 325 mg (65 mg iron) tablet Take 1 tablet by mouth two times a day with meals. amLODIPine (NORVASC) 10 mg tablet Take 1 tablet by mouth once daily. Per [facility] atorvastatin (LIPITOR) 80 mg tablet Take 1 tablet by mouth once daily. Managed by cardiology, Dr. Kern omeprazole (PRILOSEC) 40 mg capsule Take 1 capsule by mouth once daily. Per [facility] ticagrelor (BRILINTA) 90 mg tablet Take 1 tablet by mouth two times a day. Per [facility] docosahexaenoic acid/epa (FISH OIL ORAL) Take by mouth as directed. Blood-Glucose Meter monitoring kit Glucose Meter of Choice - Kit - Dx: Type 2 DM - Uncontrolled E11.65 Lancets lancets Test blood sugar(s) 2 times daily. Dx: Type 2 DM - Uncontrolled E11.65 Insulin: No blood sugar diagnostic (BLOOD GLUCOSE TEST) test strip Test blood sugar(s) 2 times daily. Dx: Type 2 DM - Uncontrolled E11.65 Insulin: No nitroglycerin sublingual (NITROSTAT) 0.4 mg SL tablet Dissolve 1 tablet under the tongue every 5 minutes as needed for chest pain. aspirin, enteric coated (ECOTRIN LOW STRENGTH) 81 mg EC tablet Take 1 tablet by mouth once daily. Blood Pressure Monitor kit 1 Each once daily. Blood Glucose Control High and Low (ACCU-CHEK MEGHANA CONTROL SOLN) soln Use as directed as indicatedto check quality of test strips carvedilol (COREG) 3.125 mg tablet Take 1 tablet by mouth two times a day. Per [facility] (Patient not taking: Reported on 07/20/2024) No current facility-administered medications on file prior to visit. Social History Social History Tobacco Use Smoking status: Never Smokeless tobacco: Former Types: Chew Quit date: 07/02/2014 Tobacco comments: 1 can of chewing tobacco every 3 days PT QUIT 2015 Vaping Use Vaping status: Never Used Substance Use Topics Alcohol use: No Drug use: No Review of Symptoms REVIEW OF SYSTEMS See hpi EXAM: BP 128/70 (BP Site: Left Arm, BP Position: Sitting, BP Cuff Size: Large Adult) Pulse 83 Temp 36.9 C (98.5 F) Resp 16 Wt 78.5 kg (173 lb) SpO2 96% BMI 25.70 kg/m General Appearance: Well appearing, alert, in no acute distress, well-hydrated, well nourished.. Eyes: Anicteric sclera. Pupils are equally round and reactive to light. Extraocular movements are intact. . Ears: External ears normal, canals clear. Neck: Supple, no adenopathy; thyroid symmetric, normal size, no bruits. Lungs: Lungs clear to auscultation. No wheezing, rhonchi, rales.. Heart: RRR without murmur, gallop, or rubs. No ectopy. Neurologic: Negative findings: speech normal, mental status intact, cranial nerves 2-12 intact, gait, including heel, toe, and tandem walking normal, rapid alternating movements normal, reflexes normal and symmetric. Health Maintenance List Urine Albumin:Creatinine Ratio due on 11/29/2023 Advance Directive Discussion due on 09/01/2024 Dilated Retinal Exam due on 09/02/2024 Covid-19 Vaccine() due on 07/20/2025 HbA1C due on 10/20/2024 LDL Cholesterol due on 07/20/2025 Diabetic Foot Exam due on 07/20/2025 Depression Screening due on 07/20/2025 Anxiety Screening due on 07/20/2025 Annual PCP Team Chronic Disease Visit due on 09/06/2025 BP Controlled (<130/80) due on 09/06/2025 DTaP,Tdap,Td Vaccine(4 - Td or Tdap) due on 03/01/2031 Colorectal Cancer Screening due on 10/14/2032 Influenza Vaccine Completed RSV Vaccine Completed Hepatitis C Screening Completed Shingrix Vaccine Completed Pneumococcal Vaccine: 50+ Completed Data reviewed ASSESSMENT/PLAN: 1. [place] headache - ICD9: 784.0, ICD10: G44.53 (primary diagnosis) Given new headache that is the worse headache of his life, will get stat MRI today. If normal, will get patient back in with neuro for management of his headaches again - MRI BRAIN WO/W IVCON - CREATININE BLD 2. New onset headache - ICD9: 784.0, ICD10: R51.9 As above. - MRI BRAIN WO/W IVCON - CREATININE BLD Martha Boston PA-C I spent a total of 35 minutes on the date of the service which included preparing to see the patient, ydfh-xl-ybrq patient care, completing clinical documentation, obtaining and/or reviewing separately obtained history, performing a medically appropriate examination, counseling and educating the pat ient/family/caregiver, ordering medications, tests, or procedures, and communicating with other HCPs (not separately reported). [facility]25 NoteHNO ID: [id number] Author: LUIS E AGUDELO LPN Service: ? Author Type: LICENSED NURSE Type: Progress Notes Filed: 09/24/2024 10:12 Note Text: Scan on 09/24/2024 8:34 AM by Sonido Lemon PA-C: [facility]01-24-2025 History of Present illness Narrative* Luis E Agudelo LPN - 09/24/2024 10:12 AM EST Scan on 09/24/2024 8:34 AM by Sonido Lemon PA-C: Chemistry documented in this encounterOhio [facility]01-23-2025 NoteHNO ID: [id number] Author: LUIS E AGUDELO LPN Service: ? Author Type: LICENSED NURSE Type: Progress Notes Filed: 09/23/2024 14:49 Note Text: Scan on 09/23/2024 1:38 PM by Sonido Lemon PA-C: [facility]01-23-2025 History of Present illness Narrative* Luis E Agudelo LPN - 09/23/2024 2:48 PM EST Scan on 09/23/2024 1:38 PM by Sonido Lemon PA-C: Chemistry documented in this encounterOhio [facility]01-22-2025 NoteHNO ID: [id number] Author: LUIS E AGUDELO LPN Service: ? Author Type: LICENSED NURSE Type: Progress Notes Filed: 09/22/2024 07:08 Note Text: Scan on 09/21/2024 10:00 PM by Sonido Lemon [facility]-C: [facility] History of Present illness Narrative* Luis E Agudelo LPN - 09/22/2024 7:08 AM EST Scan on 09/21/2024 10:00 PM by Sonido Lemon PA-C: X-ray documented in this encounterOhio [facility]01-21-2025 NoteHNO ID: [id number] Author: LUIS E AGUDELO LPN Service: ? Author Type: LICENSED NURSE Type: Progress Notes Filed: 09/21/2024 07:05 Note Text: Scan on 09/20/2024 8:35 PM by Sonido Lemon PA-C: [facility] History of Present illness Narrative* Luis E Agudelo LPN - 09/21/2024 7:05 AM EST Scan on 09/20/2024 8:35 PM by Sonido Lemon PA-C: Chemistry documented in this [facility]01-08-2025 Evaluation note* Diagnosis Onset Date Resolution Status Admit Date Bilateral carotid artery stenosis chronic September 08 12:50pm History of coronary artery stent placement August 16, 2024 chronic September 08, 2024 12:50pm Hyperlipidemia september 12:50pm Hypotension chronic September 08, 2024 12:50pm Syncope October,September 08, 2024 12:50pm Claudication of left lower extremity acute December 08, 2024 8:09am Bilateral carotid artery stenosis chronic December 08, 2024 8:09am History of coronary artery stent placement August 16, 2024 chronic December 08, 025 8:09am Hyperlipidemia chronic December 08, 2024 8:09am Hypotension chronic December 08 8:09am Syncope October,December 08 8:09am [facility] Work Phone: [phone]) 192-644701-07-2025 Telephone encounter Note* Telephone Encounter - Meg Miller MA - 09/07/2024 8:25 AM EST Pt notified and verbalized understanding Meg Miller MA [facility]01-07-2025 Miscellaneous Notes* Telephone Encounter - Meg Miller MA - 09/07/2024 8:25 AM EST Pt notified and verbalized understanding Meg Miller MA * Telephone Encounter - Nadir Grady MD - 09/06/2024 11:17 PM EST Let patient know his repeat chest x-ray was normal. documented in this encounterOhio [facility]01-[facility]-2025 Telephone encounter Note * Telephone Encounter - Nadir Grady MD - 09/06/2024 11:17 PM EST Let patient know his repeat chest x-ray was normal. [facility]01-06-[facility] History of Present illness Narrative* Chaz Pastor RT(Emmanuelle) - 09/06/2024 4:50 PM EST Radiology Service Progress Note PATIENT NAME: Michael Bates DATE OF SERVICE: September 06, 2024 TIME: 4:46 PM PATIENT IDENTITY VERIFICATION COMPLETED USING TWO (2) IDENTIFIERS: Name and Date of confirmedby patient verbally. FALL SCREENING: Has the patient had 2 falls in the last year or 1 fall with injury or currently using an Ambulatory Assistive Device (Walker, Cane, Wheelchair, Crutches, etc.)? No PATIENT GENDER DATA: Male PATIENT RELEVANT IMPLANT DATA REVIEWED: Not Applicable PATIENT PRESENTS WITH AN IMPLANTABLE OR ATTACHED SOLAR SALES REPRESENTATIVE AND ASSESSOR: No RADIOLOGY DEPARTMENT: General X-ray: Exam(s) Completed: Chest X-Ray PERIPHERAL IV DATA: Not applicable SIGNED BY: RT Angie(Emmanuelle) September 06, 2024 4:46 PM documented in this encounterOhio [facility]01-06-2025 NoteHNO ID: [id number] Author: CHAZ PASTOR RT (R) Service: Radiology Author Type: Technologist Type: Progress Notes Filed: 09/06/2024 16:52 Note Text: Radiology Service Progress Note PATIENT NAME: Michael Bates DATE OF SERVICE: September 06, 2024 TIME: 4:46 PM PATIENT IDENTITY VERIFICATION COMPLETED USING TWO (2) IDENTIFIERS: Name and Date of confirmed by patient verbally. FALL SCREENING: Has the patient had 2 falls in the last year or 1 fall with injury or currently using an Ambulatory Assistive Device (Walker, Cane, Wheelchair, Crutches, etc.)? No PATIENT GENDER DATA: Male PATIENT RELEVANT IMPLANT DATA REVIEWED: Not Applicable PATIENT PRESENTS WITH AN IMPLANTABLE OR ATTACHED SOLAR SALES REPRESENTATIVE AND ASSESSOR: No RADIOLOGY DEPARTMENT: General X-ray: Exam(s) Completed: Chest X-Ray PERIPHERAL IV DATA: Not applicable SIGNED BY: OSCAR Adams) September 06, 2024 4:46 [facility]01-06-2025 History of Present illness Narrative* Nadir Grady MD - 09/06/2024 2:40 PM EST Images from the original note were not included. Chief Complaint Patient presents with: ED Follow-up HPI Michael Bates is a 69 year old male who presents here today for ER follow up Patient was seen 08/27/2024 for Chest pain/weakness/dehydration. Testing showed elevated WBC and colonic diverticulosis. X-ray chest shows vague right lower lung density. Recommended CT scan. Testing in ER, stool was positive for Norovirus. Patient history, had a left heart cath 10/2023 and a coronary artery stent placed 08/16/2024. Patient sees Dr. Kern, however he did not reach out to cardiology that he was having the chest pain. In Oct 2023 patient had six stents placed: 3 Prox RCA, 1 mid RCA and two distal RCA. On 08/16/2024 he had another stent placed to the proximal RCA. Patient has had chest pain with activity that resolves with rest since having stents placed in 10/2023. The day he went to the ER on 08/27/2024 he had been at [employer] and noted shortness of breath, then when he went home he then started the diarrhea and the chest pain started so his brother took him to the ER. Since the ER visit he is still getting chest pain with activity and developed some coming into the office today but not enough to take a nitro and no shortness of breath and no recurrence of shortness of breath like when he was in [place] [employer] on 08/27/2024. The weakness feeling he had been having has improved slightly. He sees Cardio on Friday this week. Patient is no longer having diarrhea. In the ER the provider said the chest x-ray was neg for acute issues but the read by radiology saidvague RLL density possible infiltrate. Patient denies any cough since being the ER and not aware ofany fevers. Slight chills at time. Patient has known cervical neck disease and bilateral occipital Neurologia. He ws seeing pain management at [facility] and had been receiving neck injections and botox injections but stopped going 2-3 years ago because he felt the last injection was not helpful. His chronic pain seems to haveincreased after a fall about a month ago. Past medical history, appointments, medications, allergies reviewed. [...] Date 2D ECHO (EXEP) 01/16/2017 EF=60%, 1+ MD and TI CATARACT EXTRACTION HX Left 10/2019 [...] Allergies ALLERGIES Allergen Reactions Florinef [Fludrocor* Angioedema Losartan Angioedema Perfumes Other: See Comments sneezing Current Medications Current Outpatient Medications on File Prior to Visit Medication Sig metFORMIN ER (GLUCOPHAGE XR) 500 mg 24 hr tablet Take 2 tablets by mouth two times a day. isosorbide mononitrate ER (IMDUR) 30 mg 24 hr tablet Take 1 tablet by mouth once daily. Per Cardio:[facility] empagliflozin (JARDIANCE) 10 mg tablet Take 1 tablet by mouth once daily. Take 1 tablet once daily in the morning Zinc Gluconate 50 mg tablet Take 50 mg by mouth once daily. ferrous sulfate 325 mg (65 mg iron) tablet Take 1 tablet by mouth two times a day with meals. amLODIPine (NORVASC) 10 mg tablet Take 1 tablet by mouth once daily. Per [facility] atorvastatin (LIPITOR) 80 mg tablet Take 1 tablet by mouth once daily. Managed by cardiology, Dr. Kern omeprazole (PRILOSEC) 40 mg capsule Take 1 capsule by mouth once daily. Per [facility] ranolazine ER (RANEXA) 1,000 mg tab ER 12 hr Take 1 tablet by mouth two times a day. Per [facility] carvedilol (COREG) 3.125 mg tablet Take 1 tablet by mouth two times a day. Per [facility] (Patient not taking: Reported on 07/20/2024) ticagrelor (BRILINTA) 90 mg tablet Take 1 tablet by mouth two times a day. Per [facility] docosahexaenoic acid/epa (FISH OIL ORAL) Take by mouth as directed. Blood-Glucose Meter monitoring kit Glucose Meter of Choice - Kit - Dx: Type 2 DM - Uncontrolled E11.65 Lancets lancets Test blood sugar(s) 2 times daily. Dx: Type 2 DM - Uncontrolled E11.65 Insulin: No blood sugar diagnostic (BLOOD GLUCOSE TEST) test strip Test blood sugar(s) 2 times daily. Dx: Type 2 DM - Uncontrolled E11.65 Insulin: No nitroglycerin sublingual (NITROSTAT) 0.4 mg SL tablet Dissolve 1 tablet under the tongue every 5 minutes as needed for chest pain. aspirin, enteric coated (ECOTRIN LOW STRENGTH) 81 mg EC tablet Take 1 tablet by mouth once daily. Blood Pressure Monitor kit 1 Each once daily. Blood Glucose Control High and Low (ACCU-CHEK MEGHANA CONTROL SOLN) soln Use as directed as indicatedto check quality of test strips No current facility-administered medications on file prior to visit. Social History Social History Tobacco Use Smoking status: Never Smokeless tobacco: Former Types: Chew Quit date: 07/02/2014 Tobacco comments: 1 can of chewing tobacco every 3 days PT QUIT 2014 Vaping Use Vaping status: Never Used Substance Use Topics Alcohol use: No Drug use: No Review of Symptoms REVIEW OF SYSTEMS See HPI At PE in Nov patient mentioned that he had fallen asleep while talking on the phone. Has daytime somnolence and is a snore. May have difficulty fall asleep 1- 2 days a week EXAM: BP 128/74 Pulse 72 Resp 18 Wt 78 kg (172 lb) BMI 25.55 kg/m Last 6 Encounter Wt Readings: Date: Wt: 09/06/2024 78 kg (172 lb) 08/12/2024 82.2 kg (181 lb 3.5 oz) 07/24/2024 81.9 kg (180 lb 8.9 oz) 07/20/2024 77.6 kg (171 lb) 12/22/2023 86 kg (189 lb 9.5 oz) 10/23/2023 90 kg (198 lb 6.4 oz) General Appearance: Well appearing, alert, in no acute distress, well-hydrated, well nourished.. Oropharynx: Lips, mucosa, and tongue normal, teeth and gums normal, oropharynx normal. Neck: Supple, no adenopathy; thyroid symmetric, normal size, no bruits. Lungs: Lungs clear to auscultation. No wheezing, rhonchi, rales.. Heart: RRR without murmur, gallop, or rubs. No ectopy. Abdomen: Normal abdominal exam, Abdomen soft, non-tender. Bowel sounds normal. No masses, organomegaly. Ext: no edema; Health Maintenance List Urine Albumin:Creatinine Ratio due on 11/29/2023 Advance Directive Discussion due on 09/01/2024 Dilated Retinal Exam due on 09/02/2024 Covid-19 Vaccine() due on 07/20/2025 HbA1C due on 10/20/2024 LDL Cholesterol due on 07/20/2025 Diabetic Foot Exam due on 07/20/2025 Annual PCP Team Chronic Disease Visit due on 07/20/2025 Depression Screening due on 07/20/2025 Anxiety Screening due on 07/20/2025 BP Controlled (<130/80) due on 08/12/2025 DTaP,Tdap,Td Vaccine(4 - Td or Tdap) due on 03/01/2031 Colorectal Cancer Screening due on 10/14/2032 Influenza Vaccine Completed RSV Vaccine Completed Hepatitis C Screening Completed Shingrix Vaccine Completed Pneumococcal Vaccine: 50+ Completed Data reviewed A/P ASSESSMENT/PLAN: 1. S/P drug eluting coronary stent placement - ICD9: V45.82, ICD10: Z95.5 (primary diagnosis) - patient advised to keep his apt with Cardio and discuss his continued symptoms with them. 2. Stable angina (HCC) - ICD9: 413.9, ICD10: I20.89 - as per #1 3. Abnormal chest x-ray - ICD9: 793.2, ICD10: R93.89 Check - XR CHEST 2V FRONTAL/LAT: await results to determine next course of action needed is abnormal suchas round of antibiotics or chest CT. 4. Hypersomnolence - ICD9: 780.54, ICD10: G47.10 - CONSULT TO SLEEP MEDICINE - ADULT 5. Snores - ICD9: 786.09, ICD10: R06.83 - CONSULT TO SLEEP MEDICINE - ADULT 6. Sleep initiation dysfunction - ICD9: 780.52, ICD10: G47.00 - CONSULT TO SLEEP MEDICINE - ADULT 7. Bilateral occipital neuralgia - ICD9: 723.8, ICD10: M54.81 - CONSULT TO PAIN MGT: Dr. Paz at [facility] 8. Cervicogenic headache - ICD9: 784.0, ICD10: G44.86 - CONSULT TO PAIN MGT F/u as need otherwise next routine in December. I spent a total of 65 minutes on the date of the service which included preparing to see the patient, qyjj-oe-lpor patient care, completing clinical documentation, performing a medically appropriate examination, counseling and educating the patient/family/caregiver and ordering medications, tests, or procedures. Nadir Grady MD documented in this encounterOhio [facility]01-06-2025 NoteHNO ID: [id number] Author: NADIR GRADY MD Service: ? Author Type: Physician Type: Progress Notes Filed: 09/06/2024 21:34 Note Text: Chief Complaint Patient presents with: ED Follow-up HPI Michael Bates is a 69 year old male who presents here today for ER follow up Patient was seen 08/27/2024 for Chest pain/weakness/dehydration. Testing showed elevated WBC and colonic diverticulosis. X-ray chest shows vague right lower lung density. Recommended CT scan. Testing in ER, stool was positive for Norovirus. Patient history, had a left heart cath 10/2023 and a coronary artery stent placed 08/16/2024. Patient sees Dr. Kern, however he did not reach out to cardiology that he was having the chest pain. In Oct 2023 patient had six stents placed: 3 Prox RCA, 1 mid RCA and two distal RCA. On 08/16/2024 he had another stent placed to the proximal RCA. Patient has had chest pain with activity that resolves with rest since having stents placed in 10/2023. The day he went to the ER on 08/27/2024 he had been at [employer] and noted shortness of breath, then when he went home he then started the diarrhea and the chest pain started so his brother took him to the ER. Since the ER visit he is still getting chest pain with activity and developed some coming into the office today but not enough to take a nitro and no shortness of breath and no recurrence of shortness of breath like when he was in [employer] on 08/27/2024. The weakness feeling he had been having has improved slightly. He sees Cardio on Friday this week. Patient is no longer having diarrhea. In the ER the provider said the chest x-ray was neg for acute issues but the read by radiology said vague RLL density possible infiltrate. Patient denies any cough since being the ER and not aware of any fevers. Slight chills at time. Patient has known cervical neck disease and bilateral occipital Neurologia. He ws seeing pain management at [facility] and had been receiving neck injections and botox injections but stopped going 2-3 years ago because he felt the last injection was not helpful. His chronic pain seems to have increased after a fall about a month ago. Past medical history, appointments, medications, allergies reviewed. [...] 08/04/[address] Duque Chronic sinusitis Claudication ([facility]) 06/04/2017 PVR's normal. Coronary atherosclerosis due to lipid rich plaque 01/20/[address] Kern. s/p RODDY to Ramus and RODDY to LAD placed 01/20/2017. COVID-19 virus infection 06/18/202106/2021 DDD (degenerative disc disease), cervical 01/20/2012 DDD (degenerative disc disease), lumbar 06/30/2016 Multi level, worse L2-L3 Diabetes ([facility]) Diabetic eye exam ([facility]) 03/19/2017 Last done: 10/01/2018 Elevated [...] Date 2D ECHO (EXEP) 01/16/2017 EF=60%, 1+ MD and TI CATARACT EXTRACTION HX Left 10/2019 CC CORONARY STENT 05/10/2020 RODDY to pLCx CC CORONARY STENT 12/2016 Ramus of Circ and LAD CC CORONARY STENT 11/20/2020 RODDY to pLCx and PTCA to OM2 CC CORONARY STENT 07/23/2021 PCI to prox Lt Circ in-stent restenosis then place (more content not included)...[facility]12-21-2024 Telephone encounter Note* Telephone Encounter - Sheryl Martinez - 08/21/2024 8:28 AM EST Prescription Refill Information The patient has been identified by name and date of : Yes Caregiver verified no other encounters exist for this prescription request: Yes Caregiver confirmed with patient/requestor that no other refills are due, in the near future, with this provider at this time: Yes The last office visit in the department: 08/20/2024 Does the patient have a future office visit with this provider/department: Yes Requested Prescriptions Pending Prescriptions Disp Refills metFORMIN ER (GLUCOPHAGE XR) 500 mg 24 hr tablet 360 tablet 1 Sig: Take 2 tablets by mouth two times a day. Sheryl Martinez August 21, 2024 8:28 AM [facility]12-21-2024 Miscellaneous Notes* Telephone Encounter - Sheryl Martinez - 08/21/2024 8:28 AM EST Prescription Refill Information The patient has been identified by name and date of : Yes Caregiver verified no other encounters exist for this prescription request: Yes Caregiver confirmed with patient/requestor that no other refills are due, in the near future, with this provider at this time: Yes The last office visit in the department: 08/20/2024 Does the patient have a future office visit with this provider/department: Yes Requested Prescriptions Pending Prescriptions Disp Refills metFORMIN ER (GLUCOPHAGE XR) 500 mg 24 hr tablet 360 tablet 1 Sig: Take 2 tablets by mouth two times a day. Sheryl Martinez August 21, 2024 8:28 AM documented in this encounterOhio State [facility]12-17-2024 NoteHNO ID: [id number] Author: KARLA WADSWORTH MA Service: ? Author Type: Digital Sales Planner Type: Progress Notes Filed: 08/17/2024 11:31 Note Text: Scan on 08/16/2024 9:33 AM by ProviderSonido PA-C: Cardiac Cath Scan on 08/16/2024 10:35 AM by ProviderSonido PA-C: Cardiac Cath Patient has heart cath completed with Dr. Kern at [facility] on 08/16/2024. Restenosis noted on the proximal right coronary artery stent. New stent placed. Karla Wadsworth [facility]12-17-2024 History of Present illness Narrative* Karla Wadsworth MA - 08/17/2024 11:27 AM EST Scan on 08/16/2024 9:33 AM by ProviderSonido PA-C: Cardiac Cath Scan on 08/16/2024 10:35 AM by Sonido Lemon PA-C: Cardiac Cath Patient has heart cath completed with Dr. Kern at [facility] on 08/16/2024. Restenosis noted on the proximal right coronary artery stent. New stent placed. Karla Wadsworth MA documented in this encounterOhio [facility]12-12-2024 NoteHNO ID: [id number] Author: BRIDGET JOSEPH APRN.CNP Service: ? Author Type: Nurse Practitioner Type: Progress Notes Filed: 08/12/2024 08:15 Note Text: This note was created using Kicksendriter. Subjective Michael Bates is a 69 year old male. HPI Patient notes that the lower plate of his dentures had been shifting and created a sore at the base of the inside of his lower lip. He applied some sort of drops for canker sores last evening and today he feels as though his lips and tongue are swollen. He otherwise denies any nausea vomiting fever chest pain or shortness of breath. Review of Systems As above Objective BP 118/74 Pulse 70 Temp 36.2 ?C (97.2 ?F) Resp 20 Wt 82.2 kg (181 lb 3.5 oz) SpO2 98% BMI 26.92 kg/m? Physical Exam Vitals and nursing note reviewed. Constitutional: General: He is not in acute distress. Appearance: Normal appearance. He is not ill-appearing. HENT: Head: Normocephalic. Mouth/Throat: Mouth: Mucous membranes are moist. Comments: No obvious swelling of the mouth, lips, tongue, posterior oropharynx. Eyes: Conjunctiva/sclera: Conjunctivae normal. Cardiovascular: Rate and Rhythm: Normal rate and regular rhythm. Pulmonary: Effort: Pulmonary effort is normal. Breath sounds: Normal breath sounds. Musculoskeletal: General: Normal range of motion. Cervical back: Normal range of motion. Skin: General: Skin is warm and dry. Neurological: General: No focal deficit present. Mental Status: He is alert. Psychiatric: Mood and Affect: Mood normal. Behavior: Behavior normal. Assessment and Plan ASSESSMENT/PLAN: 1. Adverse effect of zyek-sml-vuxepkr medication, initial encounter - ICD9: E947.9, ICD10: T50.905A On physical exam I saw no obvious sign of swelling to the mouth, lips, or tongue. Patient did have a tiny sore near the base of the frenulum. I informed patient he should use pzaj-lyh-lfylqbm antihistamine such as Claritin, Benadryl, or Zyrtec. I informed him that if it anytime he felt as though his symptoms were not improving or he was having any trouble with swallowing or breathing he should go directly to the emergency department. He was instructed not to use the drops again. Bridget Joseph APRN.[facility] History of Present illness Narrative* Bridget Joseph APRN.[facility] - 08/12/2024 8:06 AM EST This note was created using Kicksendriter. Subjective Michael Bates is a 69 year old male. HPI Patient notes that the lower plate of his dentures had been shifting and created a sore at the baseof the inside of his lower lip. He applied some sort of drops for canker sores last evening and today he feels as though his lips and tongue are swollen. He otherwise denies any nausea vomiting feverchest pain or shortness of breath. Review of Systems As above Objective BP 118/74 Pulse 70 Temp 36.2 C (97.2 F) Resp 20 Wt 82.2 kg (181 lb 3.5 oz) SpO2 98% BMI26.92 kg/m Physical Exam Vitals and nursing note reviewed. Constitutional: General: He is not in acute distress. Appearance: Normal appearance. He is not ill-appearing. HENT: Head: Normocephalic. Mouth/Throat: Mouth: Mucous membranes are moist. Comments: No obvious swelling of the mouth, lips, tongue, posterior oropharynx. Eyes: Conjunctiva/sclera: Conjunctivae normal. Cardiovascular: Rate and Rhythm: Normal rate and regular rhythm. Pulmonary: Effort: Pulmonary effort is normal. Breath sounds: Normal breath sounds. Musculoskeletal: General: Normal range of motion. Cervical back: Normal range of motion. Skin: General: Skin is warm and dry. Neurological: General: No focal deficit present. Mental Status: He is alert. Psychiatric: Mood and Affect: Mood normal. Behavior: Behavior normal. Assessment and Plan ASSESSMENT/PLAN: 1. Adverse effect of rdhl-uzb-yuqbhlu medication, initial encounter - ICD9: E947.9, ICD10: T50.905A On physical exam I saw no obvious sign of swelling to the mouth, lips, or tongue. Patient did have a tiny sore near the base of the frenulum. I informed patient he should use wsml-kha-lsjxmwi antihistamine such as Claritin, Benadryl, or Zyrtec. I informed him that if it anytime he felt as though his symptoms were not improving or he was having any trouble with swallowing or breathing he should godirectly to the emergency department. He was instructed not to use the drops again. Bridget Joseph APRN.MIGEL [facility] Telephone encounter Note * Telephone Encounter - Jennifer Blue RN - 08/10/2024 12:46 PM EST Pt called and is notified of providers results and instructions. Pt voices understanding. Jennifer Blue RN [facility]12-10-2024 Miscellaneous Notes* Telephone Encounter - Jennifer Blue RN - 08/10/2024 12:46 PM EST Pt called and is notified of providers results and instructions. Pt voices understanding. Jennifer Blue, RN * Telephone Encounter - Martha Boston PA-C - 08/10/2024 11:19 AM EST Let patient know that repeat alk phos levels were better and only the intestinal portion was elevated. No further evaluation at this time. We will monitor. Martha Boston PA-C documented [facility] this [facility]Ohio [facility] Telephone encounter Note * Telephone Encounter - Martha Boston PA-C - 08/10/2024 11:19 AM EST Let patient know that repeat alk phos levels were better and only the intestinal portion was elevated. No further evaluation at this time. We will monitor. Martha Boston PA-C [facility]12-04-[facility] Telephone encounter Note* Telephone Encounter - Martha Boston PA-C - 08/04/2024 10:09 AM EST Noted [facility]12-04-2024 Miscellaneous Notes* Telephone Encounter - Martha Boston PA-C - 08/04/2024 10:09 AM EST Noted * Telephone Encounter - Karla Wadsworth MA - 08/04/2024 9:54 AM EST Patient stopped by office and indicated that he wanted to wait on the blood work. I told him it wasimportant to have the repeat labs completed to make sure the levels went down. He said he would come back as he was not fasting. Patient indicated that his fasting blood sugars are around 140. Patient also indicated that he is having a heart procedure this month. Karla Wadsworth MA documented in this encounterOhio [facility] Telephone encounter Note * Telephone Encounter - Karla Wadsworth MA - 08/04/2024 9:54 AM EST Patient stopped by office and indicated that he wanted to wait on the blood work. I told him it wasimportant to have the repeat labs completed to make sure the levels went down. He said he would come back as he was not fasting. Patient indicated that his fasting blood sugars are around 140. Patient also indicated that he is having a heart procedure this month. Karla Wadsworth MA [facility]11-29-2024 NoteHNO ID: [id number] Author: KARLA WADSWORTH MA Service: ? Author Type: Digital Sales Planner Type: Progress Notes Filed: 07/30/2024 15:25 Note Text: Scan on 07/28/2024 9:25 AM by Sonido Lemon PA-C: Consultation - Cardiology Karla Wadsworth [facility]11-29-2024 History of Present illness Narrative* Karla Wadsworth MA - 07/30/2024 3:24 PM EST Scan on 07/28/2024 9:25 AM by Sonido Lemon PA-C: Consultation - Cardiology Karla Wadsworth MA documented in this encounterOhio [facility]11-29-2024 NoteHNO ID: [id number] Author: KARLA WADSWORTH MA Service: ? Author Type: Digital Sales Planner Type: Progress Notes Filed: 07/30/2024 15:23 Note Text: Scan on 07/28/2024 10:20 AM by ProviderSonido PA-C: Chemistry Scan on 07/28/2024 10:45 AM by ProviderSonido PA-C: Chemistry Scan on 07/30/2024 10:40 AM by ProviderSonido PA-C: [facility] History of Present illness Narrative* Karla Wadsworth MA - 07/30/2024 3:23 PM EST Scan on 07/28/2024 10:20 AM by ProviderSonido PA-C: Chemistry Scan on 07/28/2024 10:45 AM by ProviderSonido PA-C: Chemistry Scan on 07/30/2024 10:40 AM by ProviderSonido PA-C: X-ray Karla Wadsworth MA documented in this encounterOhio [facility]-27-[facility] Evaluation note* Diagnosis Onset Date Resolution Status Admit Date Chest pain acute July 28, 2024 8:10am Bilateral carotid artery stenosis chronic July 28, 2 024 8:10am History of coronary artery stent placement August 16, 2024July 8:10am Hyperlipidemia chronic July 032023 8:10am Hypotension chronic July 8:10am Syncope October, chronic July 8:10am Bilateral carotid artery stenosis chronic September 08 12:50pm History of coronary artery stent placement August 16, 2024 chronic September 08, 2024 12:50pm Hyperlipidemia chronic September 12:50pm Hypotension chronic September 08, 2024 12:50pm Syncope October, chronic September 08, 2024 12:50pm [facility] Work Phone: [phone] History of Present illness Narrative* Griffin Danielson, RT(R) - 07/24/2024 9:30 AM EST Radiology Service Progress Note PATIENT NAME: Michael Bates DATE OF SERVICE: July 24, 2024 TIME: 9:37 AM PATIENT IDENTITY VERIFICATION COMPLETED USING TWO (2) IDENTIFIERS: Name and Date of confirmedby patient verbally. FALL SCREENING: Has the patient had 2 falls in the last year or 1 fall with injury or currently using an Ambulatory Assistive Device (Walker, Cane, Wheelchair, Crutches, etc.)? Yes, Patient High Riskfor Falls What interventions were put in place to prevent falls during this visit? Increased Observations by Caregivers PATIENT GENDER DATA: Male PATIENT RELEVANT IMPLANT DATA REVIEWED: Not Applicable PATIENT PRESENTS WITH AN IMPLANTABLE OR ATTACHED SOLAR SALES REPRESENTATIVE AND ASSESSOR: No RADIOLOGY DEPARTMENT: General X-ray: Exam(s) Completed: Upper Extremity X- Ray(s): Wrist, right PERIPHERAL IV DATA: Not applicable SIGNED BY: RT Petar(Emmanuelle) July 24, 2024 9:37 AM documented in this encounterOhio [facility]11-23-2024 NoteHNO ID: [id number] Author: GRIFFIN DANIELSON RT(R) Service: ? Author Type: Technologist Type: Progress Notes Filed: 07/24/2024 09:42 Note Text: Radiology Service Progress Note PATIENT NAME: Michael Bates DATE OF SERVICE: July 24, 2024 TIME: 9:37 AM PATIENT IDENTITY VERIFICATION COMPLETED USING TWO (2) IDENTIFIERS: Name and Date of confirmed by patient verbally. FALL SCREENING: Has the patient had 2 falls in the last year or 1 fall with injury or currently using an Ambulatory Assistive Device (Walker, Cane, Wheelchair, Crutches, etc.)? Yes, Patient High Risk for Falls What interventions were put in place to prevent falls during this visit? Increased Observations by Caregivers PATIENT GENDER DATA: Male PATIENT RELEVANT IMPLANT DATA REVIEWED: Not Applicable PATIENT PRESENTS WITH AN IMPLANTABLE OR ATTACHED SOLAR SALES REPRESENTATIVE AND ASSESSOR: No RADIOLOGY DEPARTMENT: General X-ray: Exam(s) Completed: Upper Extremity X-Ray(s): Wrist, right PERIPHERAL IV DATA: Not applicable SIGNED BY: RT Petar(R) July 24, 2024 9:37 [facility]11-23-2024 NoteHNO ID: [id number] Author: BRIDGET JOSEPH APRN.CERTIFIED ANESTHESIOLOGIST ASSISTANT Service: ? Author Type: Nurse Practitioner Type: Progress Notes Filed: 07/24/2024 10:19 Note Text: This note was created using [employer]. Subjective Michael Bates is a 69 year old male. HPI Yesterday pt tripped and fell injuring his right wrist. Denies any injury to head or loc Review of Systems Objective BP 124/64 Pulse 80 Temp 36.5 ?C (97.7 ?F) Resp 16 Wt 81.9 kg (180 lb 8.9 oz) SpO2 96% BMI 26.82 kg/m? Physical Exam Vitals and nursing note reviewed. Constitutional: General: He is not in acute distress. Appearance: Normal appearance. He is not ill-appearing. HENT: Head: Normocephalic. Pulmonary: Effort: Pulmonary effort is normal. Musculoskeletal: General: Normal range of motion. Cervical back: Normal range of motion. Comments: Diffuse tenderness over the dorsal aspect of right wrist with no obvious swelling or deformities noted Skin: General: Skin is warm and dry. Neurological: General: No focal deficit present. Mental Status: He is alert. Psychiatric: Mood and Affect: Mood normal. Behavior: Behavior normal. Assessment and Plan ASSESSMENT/PLAN: 1. Wrist pain, right - ICD9: 719.43, ICD10: M25.531 X-ray of the wrist shows no acute abnormalities. Instructed patient that he should use ibuprofen or Tylenol as needed for pain and slowly resume activities as tolerated. He should follow-up with PCP. - XR WRIST GENERAL 3V PA/LAT/OBL RIGHT Bridget Joseph APRN.[facility]-23-[facility]24 History of Present illness Narrative* Bridget Joseph APRN.MIGEL - 07/24/2024 9:25 AM EST This note was created using [employer]. Subjective Michael Bates is a 69 year old male. HPI Yesterday pt tripped and fell injuring his right wrist. Denies any injury to head or loc Review of Systems Objective BP 124/64 Pulse 80 Temp 36.5 C (97.7 F) Resp 16 Wt 81.9 kg (180 lb 8.9 oz) SpO2 96% BMI26.82 kg/m Physical Exam Vitals and nursing note reviewed. Constitutional: General: He is not in acute distress. Appearance: Normal appearance. He is not ill-appearing. HENT: Head: Normocephalic. Pulmonary: Effort: Pulmonary effort is normal. Musculoskeletal: General: Normal range of motion. Cervical back: Normal range of motion. Comments: Diffuse tenderness over the dorsal aspect of right wrist with no obvious swelling or deformities noted Skin: General: Skin is warm and dry. Neurological: General: No focal deficit present. Mental Status: He is alert. Psychiatric: Mood and Affect: Mood normal. Behavior: Behavior normal. Assessment and Plan ASSESSMENT/PLAN: 1. Wrist pain, right - ICD9: 719.43, ICD10: M25.531 X-ray of the wrist shows no acute abnormalities. Instructed patient that he should use ibuprofen orTylenol as needed for pain and slowly resume activities as tolerated. He should follow-up with PCP. - XR WRIST GENERAL 3V PA/LAT/OBL RIGHT Bridget Joseph APRN.CERTIFIED ANESTHESIOLOGIST ASSISTANT documented in this encounterOhio [facility]11-20-2024 Telephone encounter Note * Telephone Encounter - Luis E Agudelo LPN - 07/21/2024 1:18 PM EST Pt notified of same. He will check with pharmacy for medication. Pt will contact office if any problems. Luis E Agudelo LPN [facility]11-20-2024 Miscellaneous Notes* Telephone Encounter - Luis E Agudelo LPN - 07/21/2024 1:18 PM EST Pt notified of same. He will check with pharmacy for medication. Pt will contact office if any problems. Luis E Agudelo LPN * Telephone Encounter - Martha Boston PA-C - 07/21/2024 12:14 PM EST We will see if insurance will cover jardiance. It is once a day. Martha Boston PA-C * Telephone Encounter - Jennifer Blue RN - 07/21/2024 12:03 PM EST Pt called and is notified of providers results and instructions. Pt voices understanding. Pt stateshe isn't sure about giving himself a weekly injectable. Pt states pills would be better and was asking if provider could switch to this. Please call and advise. Jenniefr Blue RN * Telephone Encounter - Martha Boston PA-C - 07/21/2024 11:27 AM EST A1c is up to 9.3%. last year it was 7.4%. we need to address this. Is he willing to start a once weekly injectable to help lower his A1c. His cholesterol is normal Alk phos is elevated. Need to repeat labs in 2 weeks. These ones need to be fasting. Thanks. Martha Boston PA-C documented in this encounterOhio [facility]11-20-2024 Telephone encounter Note * Telephone Encounter - Martha Boston PA-C - 07/21/2024 12:14 PM EST We will see if insurance will cover jardiance. It is once a day. Martha Boston PA-C [facility]11-20-2024 Telephone encounter Note* Telephone Encounter - Jennifer Blue RN - 07/21/2024 12:03 PM EST Pt called and is notified of providers results and instructions. Pt voices understanding. Pt stateshe isn't sure about giving himself a weekly injectable. Pt states pills would be better and was asking if provider could switch to this. Please call and advise. Jennifer lBue, RN [facility]11-20-2024 Telephone encounter Note* Telephone Encounter - Martha Boston PA-C - 07/21/2024 11:27 AM EST A1c is up to 9.3%. last year it was 7.4%. we need to address this. Is he willing to start a once weekly injectable to help lower his A1c. His cholesterol is normal Alk phos is elevated. Need to repeat labs in 2 weeks. These ones need to be fasting. Thanks. Martha Boston PA-C [facility]11-19-2024 Instructions* Patient Instructions* Martha Boston PA-C - 07/20/2024 8:08 AM EST Screening schedule The following prevention plan is recommended: Diabetic Foot Exam due on 05/13/2023 Advance Directive Discussion due on 09/01/2023 Urine Albumin:Creatinine Ratio due on 11/29/2023 HbA1C due on 12/17/2023 LDL Cholesterol due on 06/17/2024 BP Controlled (<130/80) due on 06/17/2024 WHAT YOU CAN DO TO PREVENT FALLS Many falls can be prevented. By making some changes, you can lower your chances of falling. Four things YOU can do to prevent falls for you* and your caregiver 1. Begin a regular exercise program Exercise is one of the most important ways to lower your chances of falling. It makes you stronger and helps you feel better. Exercises that improve balance and coordination (like Valeriano Chi) are the most helpful. Lack of exercise leads to weakness and increases your chances of falling. Ask your doctor or health care provider about the best type of exercise program for you. 2. Have your health care provider review your medicines Have your doctor or pharmacist review all the medicines you take, even ojyv-fuh-pvkqoyg medicines. As you get older, the way medicines work in your body can change. Some medicines, or combinations of medicines, can make you sleepy or dizzy andcan cause you to fall. 3. Have your vision checked Have your eyes checked by an eye doctor at least once a year. You may be wearing the wrong glasses or have a condition like glaucoma or cataracts that limits your vision. Poor vision can increase your chances of falling. 4. Make your home safer About half of all falls happen at home. To make your home safer: Remove things you can trip over (like papers, books, clothes, and shoes) from stairs and places where you walk. Remove small throw rugs or use double-sided tape to keep the rugs from slipping. Keep items you use often in cabinets you can reach easily without using a step stool. Have grab bars put in next to your toilet and in the tub or shower. Use non-slip mats in the bathtub and on shower floors. Improve the lighting in your home. As you get older, you need brighter lights to see well. Hang light-weight curtains or shades to reduce glare. Have handrails and lights put in on all staircases. Wear shoes both inside and outside the house. Avoid going barefoot or wearing slippers. For more information, contact: Centers for Disease Control and Prevention www.cdc.gov/injury * This information may not apply if you have certain medical conditions. documented in this encounterOhio [facility]11-19-2024 NoteHNO ID: [id number] Author: MARTHA BOSTON PA-C Service: ? Author Type: Physician Rigging And Controls Aircraft Mechanic Type: Progress Notes Filed: 07/20/2024 09:14 Note Text: Michael Bates is a 69 year old male here for a Medicare wellness visit. Medicare Health Risk Assessment General Health Fair Exercise: Minutes/Day 10 Exercise: Days/Week 5 Alcohol: Daily Use no Alcohol: Drinks/Day - Alcohol: 6 or more drinks - Feel off balance yes Concerns: Teeth/Dentures no Concerns: Sexual function Troubled by feelings no Frequency: Eating healthy diet sometimes ADLs requiring help no Safety precautions in home/vehicle yes Smoke, vape, chews tobacco no Difficulty hearing Some decreased Difficulty seeing no Current Providers Specialists: I have reviewed specialist-related care of the patient in the medical record. Medical/Family history review Reviewed and updated problem list, medical/surgical/family/social history, medications, and allergies. Opioid use review Opioid Medications (last 90 days) No data to display Anxiety/Depression screening PHQ-2 Score: 0 (Lower risk for depression) Recommendation: no further intervention at this time Cognitive screening Mini Cog Score: 4 Cognitive screening reviewed and No further action needed (score 3-5). Functional Observation Was the patient's Timed Up AND Go test unsteady or >= 12 seconds? No Advance Care Planning Surrogate decision maker and/or advance care plan documented Measurements BP 132/62 (BP Site: Left Arm, BP Position: Sitting, BP Cuff Size: Large Adult) Pulse 71 Temp 36.6 ?C (97.8 ?F) Resp 16 Ht 174.8 cm (5' 8.8) Wt 77.6 kg (171 lb) SpO2 97% BMI 25.40 kg/m? Vision Screening: Follows with optometry/ophthalmology Assessment/Plan Medicare annual wellness visit, subsequent (Z00.00) - Counseled on healthy diet and regular exercise - Fall avoidance information provided - Personalized prevention plan provided Chief Complaint Patient presents with: Medicare Wellness Exam HPI Michael Bates is a 69 year old male who presents here today for extensive exam. Patient with hx of DM2, hyperlipidemia, HTN, GERD, Adjustment disorder, Carotid stenosis, BPH, Chronic neck pain, and those as below. Patient overall doing okay. Having episode of falling asleep randomly in the evening. Seeing cardiology. No appetite. Has lost a lot of weight. Past medical history, appointments, medications, allergies reviewed. [...] worse L2-L3 Diabetes (HCC) Diabetic eye exam ([facility]) 03/19/2017 Last done: 10/01/2018 Elevated [...] Date 2D ECHO (EXEP) 01/16/2017 EF=60%, 1+ MD and TI CATARACT EXTRACTION HX Left 10/2019 CC CORONARY STENT 05/10/2020 (more content not included)...[facility]11-19-2024 History of Present illness Narrative* Martha Boston PA-C - 07/20/2024 7:40 AM EST Images from the original note were not included. Michael Bates is a 69 year old male here for a Medicare wellness visit. Medicare Health Risk Assessment General Health Fair Exercise: Minutes/Day 10 Exercise: Days/Week 5 Alcohol: Daily Use no Alcohol: Drinks/Day - Alcohol: 6 or more drinks - Feel off balance yes Concerns: Teeth/Dentures no Concerns: Sexual function Troubled by feelings no Frequency: Eating healthy diet sometimes ADLs requiring help no Safety precautions in home/vehicle yes Smoke, vape, chews tobacco no Difficulty hearing Some decreased Difficulty seeing no Current Providers Specialists: I have reviewed specialist-related care of the patient in the medical record. Medical/Family history review Reviewed and updated problem list, medical/surgical/family/social history, medications, and allergies. Opioid use review Opioid Medications (last 90 days) No data to display Anxiety/Depression screening PHQ-2 Score: 0 (Lower risk for depression) Recommendation: no further intervention at this time Cognitive screening Mini Cog Score: 4 Cognitive screening reviewed and No further action needed (score 3-5). Functional Observation Was the patient's Timed Up & Go test unsteady or >= 12 seconds? No Advance Care Planning Surrogate decision maker and/or advance care plan documented Measurements BP 132/62 (BP Site: Left Arm, BP Position: Sitting, BP Cuff Size: Large Adult) Pulse 71 Temp 36.6 C (97.8 F) Resp 16 Ht 174.8 cm (5' 8.8) Wt 77.6 kg (171 lb) SpO2 97% BMI 25.40 kg/m Vision Screening: Follows with optometry/ophthalmology Assessment/Plan Medicare annual wellness visit, subsequent (Z00.00) - Counseled on healthy diet and regular exercise - Fall avoidance information provided - Personalized prevention plan provided Chief Complaint Patient presents with: Medicare Wellness Exam HPI Michael Bates is a 69 year old male who presents here today for extensive exam. Patient with hx of DM2, hyperlipidemia, HTN, GERD, Adjustment disorder, Carotid stenosis, BPH, Chronic neck pain, and those as below. Patient overall doing okay. Having episode of falling asleep randomly in the evening. Seeing cardiology. No appetite. Has lost a lot of weight. Past medical history, appointments, medications, allergies reviewed. [...] lumbar 06/30/2016 Multi level, worse L2-L3 Diabetes ([facility]) Diabetic eye exam ([facility]) 03/19/2017 Last done: 10/01/2018 Elevated [...] Date 2D ECHO (EXEP) 01/16/2017 EF=60%, 1+ MD and TI CATARACT EXTRACTION HX Left 10/2019 [...] Allergies ALLERGIES Allergen Reactions Florinef [Fludrocor* Angioedema Losartan Angioedema Perfumes Other: See Comments sneezing Current Medications Current Outpatient Medications on File Prior to Visit Medication Sig Zinc Gluconate 50 mg tablet Take 50 mg by mouth once daily. amLODIPine (NORVASC) 10 mg tablet Take 1 tablet by mouth once daily. Per [facility] atorvastatin (LIPITOR) 80 mg tablet Take 1 tablet by mouth once daily. Managed by cardiology, Dr. Kern omeprazole (PRILOSEC) 40 mg capsule Take 1 capsule by mouth once daily. Per [facility] metFORMIN ER (GLUCOPHAGE XR) 500 mg 24 hr tablet Take 2 tablets by mouth two times a day. ferrous sulfate 325 mg (65 mg iron) tablet Take 1 tablet by mouth two times a day with meals. ranolazine ER (RANEXA) 1,000 mg tab ER 12 hr Take 1 tablet by mouth two times a day. Per [facility] ticagrelor (BRILINTA) 90 mg tablet Take 1 tablet by mouth two times a day. Per [facility] docosahexaenoic acid/epa (FISH OIL ORAL) Take by mouth as directed. Blood-Glucose Meter monitoring kit Glucose Meter of Choice - Kit - Dx: Type 2 DM - Uncontrolled E11.65 Lancets lancets Test blood sugar(s) 2 times daily. Dx: Type 2 DM - Uncontrolled E11.65 Insulin: No blood sugar diagnostic (BLOOD GLUCOSE TEST) test strip Test blood sugar(s) 2 times daily. Dx: Type 2 DM - Uncontrolled E11.65 Insulin: No nitroglycerin sublingual (NITROSTAT) 0.4 mg SL tablet Dissolve 1 tablet under the tongue every 5 minutes as needed for chest pain. aspirin, enteric coated (ECOTRIN LOW STRENGTH) 81 mg EC tablet Take 1 tablet by mouth once daily. Blood Pressure Monitor kit 1 Each once daily. Blood Glucose Control High and Low (ACCU-CHEK MEGHANA CONTROL SOLN) soln Use as directed as indicatedto check quality of test strips carvedilol (COREG) 3.125 mg tablet Take 1 tablet by mouth two times a day. Per [facility] (Patient not taking: Reported on 07/20/2024) nystatin (MYCOSTATIN) 100,000 unit/mL suspension Take 5 mL by mouth four times daily. 1tsp swish inmouth for several minutes, then swallow (or expectorate) 4 times daily until gone. (Patient not taking: Reported on 07/20/2024) triamcinolone acetonide (KENALOG) 0.1 % cream Apply 1 application to affected area three times daily. Apply sparingly to area for rash/itching. (Patient not taking: Reported on 07/20/2024) gabapentin (NEURONTIN) 600 mg tablet Take 600 mg by mouth daily at bedtime. (Patient not taking: Reported on 07/20/2024) omega-3 fatty acids 1,000 mg cap Take 2 capsules by mouth once daily. (Patient not taking: Reportedon 07/20/2024) No current facility-administered medications on file prior to visit. Social History Social History Tobacco Use Smoking status: Never Smokeless tobacco: Former Types: Chew Quit date: 07/02/2014 Tobacco comments: 1 can of chewing tobacco every 3 days PT QUIT 2015 Vaping Use Vaping status: Never Used Substance Use Topics Alcohol use: No Drug use: No Review of Symptoms REVIEW OF SYSTEMS GENERAL: +weight loss. No malaise or fevers HEENT: No changes in hearing or vision, no nose bleeds or other nasal problems NECK: Negative for lumps, goiter, pain and significant neck swelling RESPIRATORY: Negative for cough, hemoptysis, wheezing, COPD, dyspnea or shortness of breath CARDIOVASCULAR: Negative for chest pain, leg swelling, CHF or palpitations GI: has had some GERD with new cardio medication. Negative for abdominal discomfort, blood in stools or black stools, change in bowel habit,, nausea, vomiting : No history of dysuria, frequency or incontinence MUSCULOSKELETAL: Negative for joint pain or swelling, back pain or muscle pain SKIN: Negative for lesions, rash, and itching PSYCH: Negative for sleep disturbance, mood disorder and recent psychosocial stressors HEMATOLOGY/LYMPHOLOGY: Negative for prolonged bleeding, bruising easily or swollen nodes ENDOCRINE: Negative for cold or heat intolerance, polyuria, polydipsia and goiter NEURO: No history of headaches, syncope, paralysis, seizures or tremors EXAM: BP 132/62 (BP Site: Left Arm, BP Position: Sitting, BP Cuff Size: Large Adult) Pulse 71 Temp 36.6 C (97.8 F) Resp 16 Ht 174.8 cm (5' 8.8) Wt 77.6 kg (171 lb) SpO2 97% BMI 25.40 kg/m Last 3 Encounter Wt Readings: Date: Wt: 07/20/2024 77.6 kg (171 lb) 12/22/2023 86 kg (189 lb 9.5 oz) 10/23/2023 90 kg (198 lb 6.4 oz) General Appearance: Well appearing, alert, in no [...] mucosa normal, no drainage or sinus tenderness. Oropharynx: Lips, mucosa, and tongue normal, teeth and gums normal, oropharynx normal. Neck: Supple, no adenopathy; thyroid symmetric, normal [...] Reflexes normal and symmetric. Sensation grossly intact.. Genitalia: Penis normal. No urethral discharge. Scrotum normal to palpation. No hernia.. Feet:Shoes and socks removed, No deformities, ulcers, calluses, normal distal pulses, sensitive to 10 gm monofilament, vibratory perception normal, and nails notable for Hypertrophic or Yellowish Health Maintenance List Depression Screening Never done Anxiety Screening Never done Diabetic Foot Exam due on 05/13/2023 Advance Directive Discussion due on 09/01/2023 Urine Albumin:Creatinine Ratio due on 11/29/2023 HbA1C due on 12/17/2023 LDL Cholesterol due on 06/17/2024 Annual PCP Team Chronic Disease Visit due on 06/17/2024 Covid-19 Vaccine( season) due on 07/20/2025 Dilated Retinal Exam due on 09/02/2024 BP Controlled (<130/80) due on 12/21/2024 DTaP,Tdap,Td Vaccine(4 - Td or Tdap) due on 03/01/2031 Colorectal Cancer Screening due on 10/14/2032 Influenza Vaccine Completed RSV Vaccine Completed Hepatitis C Screening Completed Shingrix Vaccine Completed Pneumococcal Vaccine: 65+ Completed Data reviewed N/a ASSESSMENT/PLAN: 1. Medicare annual wellness visit, subsequent - ICD9: V70.0, ICD10: Z00.00 (primary diagnosis) - Counseled on healthy diet and regular exercise 2. Advance directive discussed with patient - ICD9: V65.49, ICD10: Z71.89 In chart 3. Type 2 diabetes mellitus with diabetic neuropathy, without long-term current use of insulin (HCC) - ICD9: 250.60, 357.2, ICD10: E11.40 - Control undetermined, due for labs - Continue current medications - Statin prescribed - atorvastatin - HEMOGLOBIN A1C - LIPID PANEL, NONFASTING - URINALYSIS, WITH MICROSCOPIC - ALBUMIN/CREATININE RATIO, URINE - COMPLETE BLOOD COUNT AND DIFFERENTIAL - COMPREHENSIVE METABOLIC PANEL 4. Type 2 diabetes mellitus without complication, without long-term current use of insulin (HCC) - ICD9: 250.00, ICD10: E11.9 - Control undetermined, due for labs - METFORMIN ER 500 MG TABLET,EXTENDED RELEASE 24 HR 5. Essential hypertension, benign - ICD9: 401.1, ICD10: I10 - Controlled - Continue current medications - Recommend home blood pressure monitoring, to bring results to next visit - Encouraged sodium restriction, DASH or Mediterranean diet - Recommend regular aerobic exercise - COMPREHENSIVE METABOLIC PANEL 6. Uncontrolled type 2 diabetes mellitus with hyperglycemia (HCC) - ICD9: 250.02, ICD10: E11.65 - Control undetermined, due for labs - HEMOGLOBIN A1C - LIPID PANEL, NONFASTING - URINALYSIS, WITH MICROSCOPIC - ALBUMIN/CREATININE RATIO, URINE - COMPLETE BLOOD COUNT AND DIFFERENTIAL - COMPREHENSIVE METABOLIC PANEL 7. Mixed hyperlipidemia - ICD9: 272.2, ICD10: E78.2 - Control undetermined, due for labs - Continue current medications - Counseled on healthy diet and regular exercise - LIPID PANEL, NONFASTING - COMPLETE BLOOD COUNT AND DIFFERENTIAL - COMPREHENSIVE METABOLIC PANEL 8. Coronary atherosclerosis due to lipid rich plaque - ICD9: 414.3, ICD10: I25.83 Cont with cardiology 9. Adjustment disorder with depressed mood - ICD9: 309.0, ICD10: F43.21 stable 10. Anemia of chronic disease - ICD9: 285.29, ICD10: D63.8 Await labs - FERROUS SULFATE 325 MG (65 MG IRON) TABLET - IRON AND TIBC 11. Screening for depression - ICD9: V79.0, ICD10: Z13.31 - DEPRESSION SCREENING 12. Encounter for screening examination for other mental health and behavioral disorders - ICD9: V79.8, ICD10: Z13.39 - ANXIETY SCREENING 13. Weight loss - ICD9: 783.21, ICD10: R63.4 Discussed diet. Consider further workup Recheck in 1 month. - THYROID STIMULATING HORMONE Martha Boston, PA-C I spent a total of 45 minutes on the date of the service which included preparing to see the patient, [id number] patient care, completing clinical documentation, obtaining and/or reviewing separately obtained history, performing a medically appropriate examination, counseling and educating the pat ient/family/caregiver, ordering medications, tests, or procedures, and communicating results to thepatient/family/caregiver. documented in this encounter[facility] Note* Addendum Note - Nadir Grady MD - 04/19/2024 11:12 AM EDTAddended by: NADIR GRADY on: 04/19/2024 11:12 AM Modules accepted: Orders [facility]08-19-2024 Miscellaneous Notes* Addendum Note - Nadir Grady MD - 04/19/2024 11:12 AM EDTAddended by: NADIR GRADY on: 04/19/2024 11:12 AM Modules accepted: Orders documented in this encounterOhio [facility]08-19-2024 NoteHNO ID: [id number] Author: LUIS E AGUDELO LPN Service: ? Author Type: LICENSED NURSE Type: Progress Notes Filed: 04/19/2024 10:30 Note Text: Scan on 04/19/2024 9:22 AM by Sonido Lemon PA-C: [facility] History of Present illness Narrative* Luis E Agudelo LPN - 04/19/2024 10:29 AM EDT Scan on 04/19/2024 9:22 AM by Sonido Lemon PA-C: Consultation - Cardiology documented in this encounterOhio [facility]07-[facility]-20[facility] History of Present illness Narrative* Dell Posey MA - 03/10/2024 11:36 AM EDT POPULATION HEALTH NAVIGATION OUTREACH Action/FYI msg to schedule wellness, hcc gap closure, hgba1c- not pended as I didn't speak to the patient Reason for Outreach Care Gap/HCC or Scheduling Wellness Visits Care Gaps due: Medicare Annual Wellness Visit HBA1C Patient Contacted: Unable or unnecessary to reach patient: Unable to leave message [employer] [employer] message sent HCC related Navigation Signature: Dell Posey MA March 10, 2024 11:37 AM documented in this encounterOhio [facility]07-10-2024 NoteHNO ID: [id number] Author: DELL POSEY MA Service: ? Author Type: Digital Sales Planner Type: Progress Notes Filed: 03/10/2024 11:37 Note Text: POPULATION HEALTH NAVIGATION OUTREACH Action/FYI msg to schedule wellness, hcc gap closure, hgba1c- not pended as I didn't speak to the patient Reason for Outreach Care Gap/HCC or Scheduling Wellness Visits Care Gaps due: Medicare Annual Wellness Visit HBA1C Patient Contacted: Unable or unnecessary to reach patient: Unable to leave message [employer] message sent HCC related Navigation Signature: Dell Posey MA March 10, 2024 11:37 [facility]07-10-2024 NotePatient Outreach (NETNAV) MICHAEL BATES ([id number]) 1955 M Date Time Provider Department 03/10/24 DELL POSEY During your visit today, we recorded the following information about you: Dell Posey MA 03/10/2024 11:37 AM Signed POPULATION HEALTH NAVIGATION OUTREACH Action/FYI msg to schedule wellness, hcc gap closure, hgba1c- not pended as I didn't speak to the patient Reason for Outreach Care Gap/HCC or Scheduling Wellness Visits Care Gaps due: Medicare Annual Wellness Visit HBA1C Patient Contacted: Unable or unnecessary to reach patient: Unable to leave message [facility] message sent HCC related Navigation Signature: Dell Posey MA March 10, 2024 11:37 AM Allergies As of Date: 03/10/2024 Noted Allergy Reaction FLORINEF (FLUDROCORTISONE) 04/25/2022 18 - Angioedema LOSARTAN 10/24/2023 18 - Angioedema PERFUMES 01/20/2012 14 - Other: See Comments Comments: sneezing Date Reviewed: 12/22/2023 Reviewed by: Olamide Trinidad MA - Fully Assessed Reason for Visit: Population Health Navigation Outreach [3910] Cmt: Ender samano Prescriptions as of 03/10/2024 - metFORMIN ER (GLUCOPHAGE XR) 500 mg 24 hr tablet Take 2 tablets by mouth two times a day. - ferrous sulfate 325 mg (65 mg iron) tablet Take 1 tablet by mouth two times a day with meals. - ranolazine ER (RANEXA) 1,000 mg tab ER 12 hr Take 1 tablet by mouth two times a day. Per [facility] - atorvastatin (LIPITOR) 40 mg tablet Take 1 tablet by mouth once daily. Managed by cardiology, Dr. Kern - amLODIPine (NORVASC) 5 mg tablet Take 1 tablet by mouth once daily. - keTORolac (ACULAR) 0.5 % ophthalmic solution Use 1 Drop in the right eye four times daily. - ofloxacin (OCUFLOX) 0.3 % ophthalmic solution Use 1 Drop in the right eye four times daily. - carvedilol (COREG) 3.125 mg tablet Take 1 tablet by mouth two times a day. Per [facility] - ticagrelor (BRILINTA) 90 mg tablet Take 1 tablet by mouth two times a day. Per [facility] - nystatin (MYCOSTATIN) 100,000 unit/mL suspension Take 5 mL by mouth four times daily. 1tsp swish in mouth for several minutes, then swallow (or expectorate) 4 times daily until gone. - triamcinolone acetonide (KENALOG) 0.1 % cream Apply 1 application to affected area three times daily. Apply sparingly to area for rash/itching. - docosahexaenoic acid/epa (FISH OIL ORAL) Take by mouth as directed. - gabapentin (NEURONTIN) 600 mg tablet Take 600 mg by mouth daily at bedtime. - pantoprazole DR (PROTONIX) 40 mg tablet Take 1 tablet by mouth daily before breakfast. Take on empty stomach, 1/2 hr before meal. - Blood-Glucose Meter monitoring kit Glucose Meter of Choice - Kit - Dx: Type 2 DM - Uncontrolled - Lancets lancets Test blood sugar(s) 2 times daily. Dx: Type 2 DM - Uncontrolled Insulin: No - blood sugar diagnostic (BLOOD GLUCOSE TEST) test strip Test blood sugar(s) 2 times daily. Dx: Type 2 DM - Uncontrolled Insulin: No - fluticasone (FLONASE) 50 mcg/actuation nasal spray INSTILL 2 SPRAYS IN EACH NOSTRIL ONCE DAILY - nitroglycerin sublingual (NITROSTAT) 0.4 mg SL tablet Dissolve 1 tablet under the tongue every 5 minutes as needed for chest pain. - omega-3 fatty acids 1,000 mg cap Take 2 capsules by mouth once daily. - aspirin, enteric coated (ECOTRIN LOW STRENGTH) 81 mg EC tablet Take 1 tablet by mouth once daily. - Blood Pressure Monitor kit 1 Each once daily. 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] 12/04/2007 Unspecified pruritic disorder [L29.9] 03/02/2009 04/12/2020 Lumbago [M54.50] 02/09/2010 Sciatica [M54.30] 02/09/2010 Neck sprain and strain [S13.9XXA] 07/30/2010 08/30/2010 Other physical therapy [VLY8297] 08/16/2010 08/30/2010 Essential hypertension, benign [I10] 01/17/2012 DDD (degenerative disc disease), cervical [M50.*01/20/2012 Cervical spondylosis [M47.812] 01/20/2012 Chronic sinusitis [J32.9] Hyperlipidemia [E78.5] 08/04/2015 Mixed hyperlipidemia [E78.2] 08/04/2015 Lumbar radiculopathy [M54.16] Chronic post-traumatic headache [G44.329] 08/04/2015 Bilateral occipital neuralgia [M54.81] 08/04/2015 Seborrheic dermatitis [L21.9] 08/04/2015 Elevated LFTs [R79.89] 08/05/2015 Carotid stenosis, asymptomatic, bilateral [I65.*08/09/2015 Neck pain, chronic [M54.2, G89.29] 10/16/2015 Cervicogenic headache [G44.86] 10/16/2015 DDD (degenerative disc disease), lumbar [M51.36]06/30/2016 Radicular pain of right lower extremity [M54.10]07/09/2016 Acute ri (more content not included)...[facility]06-[facility] Telephone encounter Note* Telephone Encounter - Molly Ordonez - 02/20/2024 11:43 AM EDT Prescription Refill Information The patient has been identified by name and date of : Yes Caregiver verified no other encounters exist for this prescription request: Yes Caregiver confirmed with patient/requestor that no other refills are due, in the near future, with this provider at this time: Yes The last office visit in the department: 06/17/2023 Does the patient have a future office visit with this provider/department: No Requested Prescriptions Pending Prescriptions Disp Refills metFORMIN ER (GLUCOPHAGE XR) 500 mg 24 hr tablet 360 tablet 1 Sig: Take 2 tablets by mouth two times a day. Molly Ordonez February 20, 2024 11:51 AM [facility]06-21-2024 Miscellaneous Notes* Telephone Encounter - Molly Ordonez - 02/20/2024 11:43 AM EDT Prescription Refill Information The patient has been identified by name and date of : Yes Caregiver verified no other encounters exist for this prescription request: Yes Caregiver confirmed with patient/requestor that no other refills are due, in the near future, with this provider at this time: Yes The last office visit in the department: 06/17/2023 Does the patient have a future office visit with this provider/department: No Requested Prescriptions Pending Prescriptions Disp Refills metFORMIN ER (GLUCOPHAGE XR) 500 mg 24 hr tablet 360 tablet 1 Sig: Take 2 tablets by mouth two times a day. Molly Ordonez February 20, 2024 11:51 AM documented in this encounterOhio [facility]05-[facility]-2024 Telephone encounter Note * Telephone Encounter - Nadir Grady MD - 01/23/2024 5:19 PM EDT The following approved medication requests have been transmitted electronically. Requested Prescriptions Signed Prescriptions Disp Refills ferrous sulfate 325 mg (65 mg iron) tablet 180 tablet 1 Sig: Take 1 tablet by mouth two times a day with meals. Authorizing Provider: NADIR GRADY Refused Prescriptions Disp Refills FEROSUL 325 mg (65 mg iron) tablet [Pharmacy Med Name: FeroSul 325 mg (65 mg iron) tablet] 180 tablet 1 Sig: Take 1 tablet by mouth two times a day with meals. Refused By: LOKESH TREVINO Reason for Refusal: Patient should contact Prescriber first Nadir Grady MD [facility]05-24-2024 Miscellaneous Notes* Telephone Encounter - Nadir Grady MD - 01/23/2024 5:19 PM EDT The following approved medication requests have been transmitted electronically. Requested Prescriptions Signed Prescriptions Disp Refills ferrous sulfate 325 mg (65 mg iron) tablet 180 tablet 1 Sig: Take 1 tablet by mouth two times a day with meals. Authorizing Provider: NADIR GRADY Refused Prescriptions Disp Refills FEROSUL 325 mg (65 mg iron) tablet [Pharmacy Med Name: FeroSul 325 mg (65 mg iron) tablet] 180 tablet 1 Sig: Take 1 tablet by mouth two times a day with meals. Refused By: LOKESH TREVINO Reason for Refusal: Patient should contact Prescriber first Nadir Grady MD * Telephone Encounter - Karla Wadsworth MA - 01/23/2024 3:53 PM EDT Sent patient my chart message. Patient is due for medicare wellness. Karla Wadsworth MA * Telephone Encounter - Ila Roach - 01/22/2024 9:38 AM EDT Patient has been identified by name and date of : Yes, Provider Dr Grady Date 01/22/2024 Time9:39 am Patient phones for refill(s): Requested Prescriptions Pending Prescriptions Disp Refills ferrous sulfate 325 mg (65 mg iron) tablet 180 tablet 1 Sig: Take 1 tablet by mouth two times a day with meals. Refused Prescriptions Disp Refills FEROSUL 325 mg (65 mg iron) tablet [Pharmacy Med Name: FeroSul 325 mg (65 mg iron) tablet] 180 tablet 1 Sig: Take 1 tablet by mouth two times a day with meals. Refused By: LOKESH TREVINO Reason for Refusal: Patient should contact Prescriber first Date of last office visit in primary care: 06/17/2023 Date of next office visit in primary care: Visit date not found Please advise. Thank you. Ila Roach. documented [facility]24 Telephone encounter Note * Telephone Encounter - Karla Wadsworth MA - 01/23/2024 3:53 PM EDT Sent patient my chart message. Patient is due for medicare wellness. Karla Wadsworth MA [facility]05-23-2024 Telephone encounter Note* Telephone Encounter - Ila Roach - 01/22/2024 9:38 AM EDT Patient has been identified by name and date of : Yes, Provider Dr Grady Date 01/22/2024 Time9:39 am Patient phones for refill(s): Requested Prescriptions Pending Prescriptions Disp Refills ferrous sulfate 325 mg (65 mg iron) tablet 180 tablet 1 Sig: Take 1 tablet by mouth two times a day with meals. Refused Prescriptions Disp Refills FEROSUL 325 mg (65 mg iron) tablet [Pharmacy Med Name: FeroSul 325 mg (65 mg iron) tablet] 180 tablet 1 Sig: Take 1 tablet by mouth two times a day with meals. Refused By: LOKESH TREVINO Reason for Refusal: Patient should contact Prescriber first Date of last office visit in primary care: 06/17/2023 Date of next office visit in primary care: Visit date not found Please advise. Thank you. Ila Roach. [facility]04-30-2024 History of Present illness Narrative* Beulah Wright LPN - 12/30/2023 12:05 PM EDT Scan on 12/30/2023 9:52 AM by Provider, HOANG Head: Consultation - Cardiology Beulah Wright LPN documented in this encounterOhio [facility]04-22-2024 History of Present illness Narrative* Francine Bartholomew, RT(R) - 12/22/2023 9:30 AM EDT Radiology Service Progress Note PATIENT NAME: Michael Bates DATE OF SERVICE: December 22, 2023 TIME: 9:26 AM PATIENT IDENTITY VERIFICATION COMPLETED USING TWO (2) IDENTIFIERS: Name and Date of confirmedby patient verbally. FALL SCREENING: Has the patient had 2 falls in the last year or 1 fall with injury or currently using an Ambulatory Assistive Device (Walker, Cane, Wheelchair, Crutches, etc.)? No PATIENT GENDER DATA: Male PATIENT RELEVANT IMPLANT DATA REVIEWED: Yes PATIENT PRESENTS WITH AN IMPLANTABLE OR ATTACHED SOLAR SALES REPRESENTATIVE AND ASSESSOR: No RADIOLOGY DEPARTMENT: General X-ray: Exam(s) Completed: Upper Extremity X- Ray(s): Forearm, left andHand, left PERIPHERAL IV DATA: Not applicable SIGNED BY: RT Collin(R) December 22, 2023 9:26 AM documented in this encounterOhio [facility]04-22-2024 History of Present illness Narrative* Karin Hamm APRN.CERTIFIED ANESTHESIOLOGIST ASSISTANT - 12/22/2023 9:16 AM EDT This note was created using Kicksendriter. Subjective Michael Bates is a 68 year old male. 68 year old male with PMH DM, HTN, hyperlipidemia, adjustment disorder presents for arm pain. Acute onset 2 days ago. States that he is building a deck at his house. A board smacked my arm. +ecchymosis +tenderness +pain Denies head injury or LOC Denies neck or back pain Denies break in skin integrity. Denies weakness. Denies blood thinners. Denies additional injuries. Right hand dominant. 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 The history is provided by the patient. No professional services specialist was used. Wrist/forearm Injury The incident occurred 2 days ago. The incident occurred at home. The injury mechanism was a direct blow. Pain location: left forearm. The quality of the pain is described as aching. The pain does notradiate. The pain is at a severity of 5/10. The pain is moderate. The pain has been Constant since the incident. Pertinent negatives include no chest pain, muscle weakness, numbness or tingling. The symptoms are aggravated by movement and palpation. He has tried nothing for the symptoms. The treatment provided no relief. PAST MEDICAL HISTORY Diagnosis Date Acute right-sided [...] 08/04/[address] Duque Chronic sinusitis Claudication ([facility]) 06/04/2017 PVR's normal. Coronary atherosclerosis due to lipid rich plaque 01/20/[address] Kern. s/p RODDY to Ramus and RODDY to LAD placed 01/20/2017. COVID-19 virus infection 06/18/202106/2021 DDD (degenerative disc disease), cervical 01/20/2012 DDD (degenerative disc disease), lumbar 06/30/2016 Multi level, worse L2-L3 Diabetes ([facility]) Diabetic eye exam ([facility]) 03/19/2017 Last done: 10/01/2018 Elevated [...] Date 2D ECHO (EXEP) 01/16/2017 EF=60%, 1+ MD and TI CATARACT EXTRACTION HX Left 10/2019 [...] STRESS TEST NUCLEAR 07/2019 negative ALLERGIES Florinef [Fludrocortisone], Losartan, and Perfumes MEDICATIONS ranolazine ER (RANEXA) 1,000 mg tab ER 12 hr Take 1 tablet by mouth two times a day. Per [facility] atorvastatin (LIPITOR) 40 mg tablet Take 1 tablet by mouth once daily. Managed by cardiology, Dr. Kern amLODIPine (NORVASC) 5 mg tablet Take 1 tablet by mouth once daily. carvedilol (COREG) 3.125 mg tablet Take 1 tablet by mouth two times a day. Per [facility] ticagrelor (BRILINTA) 90 mg tablet Take 1 tablet by mouth two times a day. Per [facility] nystatin (MYCOSTATIN) 100,000 unit/mL suspension Take 5 mL by mouth four times daily. 1tsp swish inmouth for several minutes, then swallow (or expectorate) 4 times daily until gone. ferrous sulfate 325 mg (65 mg iron) tablet Take 1 tablet by mouth two times a day with meals. metFORMIN ER (GLUCOPHAGE XR) 500 mg 24 hr tablet Take 2 tablets by mouth two times a day. triamcinolone acetonide (KENALOG) 0.1 % cream Apply [...] 2 DM - Uncontrolled E11.65 Insulin: No nitroglycerin sublingual (NITROSTAT) 0.4 mg SL tablet Dissolve 1 tablet under the tongue every 5 minutes as needed for chest pain. omega-3 fatty acids 1,000 mg cap Take 2 capsules by mouth once daily. aspirin, enteric coated (ECOTRIN LOW STRENGTH) 81 mg EC tablet Take 1 tablet by mouth once daily. Blood Pressure Monitor kit 1 Each once daily. Blood Glucose Control High and Low (ACCU-CHEK MEGHANA CONTROL SOLN) soln Use as directed as indicatedto check quality of test strips keTORolac (ACULAR) 0.5 % ophthalmic solution Use 1 Drop in the right eye four times daily. (Patientnot taking: Reported on 10/23/2023) ofloxacin (OCUFLOX) 0.3 % ophthalmic solution Use 1 Drop in the right eye four times daily. (Patient not taking: Reported on 10/23/2023) fluticasone (FLONASE) 50 mcg/actuation nasal spray INSTILL 2 SPRAYS IN EACH NOSTRIL ONCE DAILY (Patient not taking: Reported on 10/23/2023) FAMILY HISTORY Problem Relation Age of Onset [...] No Review of Systems Constitutional: Negative for activity change, appetite change and diaphoresis. Eyes: Negative for pain, discharge and itching. Respiratory: Negative for apnea, choking and chest tightness. Cardiovascular: Negative for chest pain. Gastrointestinal: Negative for abdominal pain, diarrhea, nausea and vomiting. Musculoskeletal: Negative for arthralgias, back pain and gait problem. Left arm pain Skin: Negative for color change, pallor, rash and wound. Allergic/Immunologic: Negative for environmental allergies, food allergies and immunocompromised state. Neurological: Negative for dizziness, tingling, facial asymmetry, numbness and headaches. Hematological: Negative for adenopathy. Does not bruise/bleed easily. Psychiatric/Behavioral: Negative for agitation and behavioral problems. Objective BP 108/64 Pulse 78 Temp 36.6 C (97.9 F) Resp 16 Wt 86 kg (189 lb 9.5 oz) SpO2 96% BMI 28.08 kg/m Physical Exam Vitals and nursing note reviewed. Constitutional: General: He is not in acute distress. Appearance: Normal appearance. He is not ill-appearing, toxic-appearing or diaphoretic. HENT: Head: Normocephalic and atraumatic. Right Ear: External ear normal. Left Ear: External ear normal. Nose: Nose normal. No congestion or rhinorrhea. Mouth/Throat: Mouth: Mucous membranes are moist. Pharynx: Oropharynx is clear. No oropharyngeal exudate. Eyes: General: Right eye: No discharge. Left eye: No discharge. Extraocular Movements: Extraocular movements intact. Conjunctiva/sclera: Conjunctivae normal. Pupils: Pupils are equal, round, and reactive to light. Cardiovascular: Rate and Rhythm: Normal rate and regular rhythm. Pulses: Normal pulses. Heart sounds: Normal heart sounds. No murmur heard. No friction rub. No gallop. Pulmonary: Effort: Pulmonary effort is normal. No respiratory distress. Breath sounds: Normal breath sounds. No stridor. No wheezing, rhonchi or rales. Chest: Chest wall: No tenderness. Abdominal: General: Abdomen is flat. There is no distension. Palpations: Abdomen is soft. There is no mass. Tenderness: There is no abdominal tenderness. There is no guarding or rebound. Hernia: No hernia is present. Musculoskeletal: General: Tenderness and signs of injury present. No swelling or deformity. Normal range of motion. Cervical back: Normal range of motion and neck supple. No rigidity or tenderness. Right lower leg: No edema. Left lower leg: No edema. Comments: Left distal posterior forearm with diffuse ecchymosis. Left proximal anterior forearm with diffuse ecchymosis. Diffuse tenderness throughout. Shoulder WNL. Elbow non tender. Full active and passive ROM Can pronate and supinate. Has mild TTP mid hand, full active and passive ROM +neuro +sensation RP + 2 B/L Lymphadenopathy: Cervical: No cervical adenopathy. Skin: General: Skin is warm and dry. Capillary Refill: Capillary refill takes less than 2 seconds. Coloration: Skin is not jaundiced or pale. Findings: No bruising, lesion or rash. Neurological: General: No focal deficit present. Mental Status: He is alert and oriented to person, place, and time. Cranial Nerves: No cranial nerve deficit. Sensory: No sensory deficit. Motor: No weakness. Coordination: Coordination normal. Gait: Gait normal. Deep Tendon Reflexes: Reflexes normal. Psychiatric: Mood and Affect: Mood normal. Behavior: Behavior normal. Thought Content: Thought content normal. Assessment and Plan ASSESSMENT/PLAN: 1. Left forearm pain - ICD9: 729.5, ICD10: M79.632 (primary diagnosis) + injury and trauma +ecchymosis. No red flags - XR FOREARM GENERAL 2V AP/LAT LEFT-negative for fracture 2. Hand pain, left - ICD9: 729.5, ICD10: M79.642 + injury and trauma No red flags - XR HAND GENERAL 3V PA/LAT/OBL LEFT-negative for fracture 3. Contusion of left forearm, initial encounter - ICD9: 923.10, ICD10: S50.12XA RICE Panfilo wrap OTC analgesics F/U with PCP and ortho Karin Hamm APRN.CERTIFIED ANESTHESIOLOGIST ASSISTANT [facility] of Present illness Narrative* Beulah Wright LPN - 12/05/2023 12:13 PM EDT an on 12/03/2023 7:00 PM by Provider, Sonido PARiccardoC: Consultation - Cardiology Scan on 12/04/2023 12:13 AM by ProviderSonido PARiccardoC: Consultation - Emergency Medicine Beulah Wright LPN [facility] History of Present illness Narrative* Beulah Wright LPN - 12/04/2023 2:56 PM EDT Scan on 12/04/2023 1:38 PM by Provider, External, PARiccardoC: EKG Beulah Wright LPN [facility] Discharge summary Author Jered Huff [facility] December 04, 2023 12:00am Note Date/Time December 03, 2023 2:30 pm [facility] Medical Records Department [address] [place] [id number] Emergency Department Summary 12/03/23 MR#: [id number] Acct: [id number] Name: MICHAEL BATES Rep #:[id number] : 1955 68 From: Jered Castillo PCP: Dr. Nadir Grady MD Status:ADM JASON Location: [address] History of Present Illness Chief Complaint: Chest Pain Informant: patient Onset/Context/Timing Onset: Yesterday Activity at onset: gradual and light activity Timing: Intermittent Quality: Positive for Sharp Location: Substernal and Left Parasternal Worsened By: Exertion Relieved By: Rest Associated Symptoms: Positive for Lightheadedness and Palpitations; Negative forNausea, Vomiting, Diaphoresis, Dyspnea, Cough, Fever or Acid Reflux Narrative Narrative: Patient presents with chest pain that began yesterday. Patient states that has been intermittent. Patient states it came on while he was walking. Patient describes the pain as sharp. Patient states the pain is over the substernal andleft parasternal area. Patient states it is worse with any exertion and better with rest. Patient admits to some lightheadedness and palpitations with the pain. Patient denies any nausea or vomiting. Patient denies any diaphoresis. Patient denies any shortness of breath or cough. Patient has a history of pulmonary embolism and is on blood thinners. Patient also had recent stent placement. Recent Illness/Hospitalization: Yes CVD Risk Factors: Positive for Hypertension, Hypercholesterolemia and Family History 1' </=55; Negative for Diabetes or Smoking PE Risk Factors: Positive for Recent Travel/Surgery and Prior DVT or PE; Negative for Recent Immobilization, Cancer or OCP + Smoking + >/=35 PFSH PFSH Medical History Atherosclerotic heart disease of [place] coronary artery without angina pectoris (10/10/23) Bilateral carotid artery stenosis BPH (benign prostatic hyperplasia) COVID-19 (06/2021) DDD (degenerative disc disease) Elevated LFTs Essential (primary) hypertension History of CAD (coronary artery disease) Hx of diabetes insipidus Hyperlipidemia Hypertension Sciatica Syncope (10/2021) Tremor of both hands Type 2 diabetes mellitus Home Medications aspirin 81 mg tablet,delayed release 81 mg PO DAILY@0800 heart health 09/13/13 [History Last Taken 02/11/22] omega 8-ucy-eqy-fish oil 1,000 mg (120 mg-180 mg) capsule (Fish Oil) 1,000 mg POQDAY supplement 01/06/18 [History Last Taken 12/29/21] metformin 500 mg tablet,extended release 24 hr 1,000 mg PO BID 07/25/20 [History Last Taken 11/23/23] ferrous sulfate 325 mg (65 mg iron) tablet 325 mg PO BID 06/28/22 [History Last Taken Unknown] amlodipine 5 mg tablet 5 mg PO DAILY #10 tabs 10/23/23 [Rx Last Taken 11/24/23] atorvastatin 80 mg tablet 40 mg PO DAILY cholesterol 10/30/23 [History Last Taken Unknown] ranolazine 1,000 mg tablet,extended release,12 hr 1,000 mg PO BID #60 tabs 10/30/23 [Rx Last Taken Unknown] ticagrelor 90 mg tablet (Brilinta) 90 mg PO BID #60 tabs 10/30/23 [Rx Last Taken Unknown] zinc acetate 50 mg (zinc) capsule (Galzin) 50 mg PO DAILY supplement 10/30/23 [History Last Taken Unknown] nitroglycerin 0.4 mg sublingual tablet 0.4 mg sublingual Q5M PRN Chest Pain #25 tabs 11/14/23 [Rx Last Taken Unknown] clopidogrel 75 mg tablet 75 mg PO DAILY 12/03/23 [History Last Taken Unknown] pantoprazole 40 mg tablet,delayed release 40 mg PO DAILY 12/03/23 [History Last Taken Unknown] pioglitazone 45 mg tablet 45 mg PO DAILY 12/03/23 [History Last Taken Unknown] Allergy/AdvReac Type Severity Reaction Status Date / Time fludrocortisone Allergy Severe ANGIOEDEMA Verified 10/30/23 09:08 [From [facility]] losartan AdvReac Severe Angioedema Verified 10/30/23 09:33 perfume AdvReac Other Verified 10/30/23 09:08 Family History Sister CAD (coronary artery disease) CVA (cerebral vascular accident) Diabetes Myocardial infarction Hx of CABG Mother Cancer Lung CA Surgical History History of cataract surgery History of coronary artery stent placement (10/10/23) History of hand surgery History of left heart catheterization (10/10/23) History of loop recorder (12/13/21) Hx of appendectomy Social History Smoking Status: Never smoker alcohol intake: never substance use type: does not use caffeine: No what type of physical activity do you participate in: none seatbelt use: always do you feel safe at home: Yes ROS ROS ED Constitutional Constitutional ED: Denies chills or fever(s) Eyes Eyes: Denies blurry vision or change in vision ENT ENT ED: Denies rhinorrhea or sore throat Cardiovascular Cardiovascular: Reports chest pain and palpitations Respiratory/Chest Respiratory/Chest: Denies cough or dyspnea Gastrointestinal Gastrointestinal: Denies abdominal pain, nausea or vomiting Genitourinary Genitourinary ED: Denies dysuria or hematuria Musculoskeletal Musculoskeletal: Reports back pain; Denies neck pain Integumentary Denies abscess or rash Neurologic Neurologic: Reports headache(s); Denies weakness Allergic/Immunologic Allergic/Immunologic ED: Denies mouth swelling or urticaria EXAM Physical Exam Const Vital Signs: 12/03/23 14:14 12/03/23 14:51 12/03/23 16:14 Temperature 97.2 F L Temperature Source Temporal Pulse Rate 98 79 Respiratory Rate 16 16 Blood Pressure 172/88 H 153/80 H Blood Pressure Mean 116 104 Pulse Ox 97 95 Oxygen Delivery Method Room Air Room Air 04/03/24 17:52 Temperature 98.1 F Temperature Source Pulse Rate 91 Respiratory Rate 16 Blood Pressure 137/77 H Blood Pressure Mean 97 Pulse Ox 96 Oxygen Delivery Method Positive well nourished and well developed General Appearance ED: well developed and NAD HEENT Reports moist mucous membranes Neck supple and no JVD Chest Wall palpation of chest normal Resp normal respiratory effort and clear to auscultation bilaterally Cardio regular rate GI soft to palpation, non-tender and non-distended Neuro oriented x3, CN's II-XII intact bilaterally and no sensory deficits noted Sensorium / Orientation: awake and alert Motor Exam: strength 5/5 throughout Psych mental status grossly normal Heart Score History: Moderately Suspicious ECG: Nonspecific Repolarization Age: >/= 65 years Risk Factors: >/= 3 Risk Factors or History of CAD Troponin: </= Normal Limit Score: 6 MDM MDM MDM Narrative Medical decision making narrative: Differential diagnosis includes cardiac dysrhythmia, cardiac ischemia, electrolyte abnormality, pneumonia, pneumothorax, and anxiety. EKG will be obtained to assess for cardiac dysrhythmia and cardiac ischemia. Chest x-ray will be obtained to assess for pneumonia and pneumothorax. CBC will be obtainedto assess for leukocytosis and anemia. Basic metabolic profile will be obtainedto assess for electrolyte abnormality and renal function. High-sensitivity troponin will be obtained to assess for cardiac ischemia. 2-hour repeat high-sensitivity troponin will be obtained to assess for ongoing cardiac ischemia. PT with INR and PTT will be obtained to assess for coagulopathy. Lab Data Attestation: I reviewed the patient's lab results. Lab results narrative: CBC was reviewed. There is a mild anemia with a hemoglobin of 11.4 and hematocrit 33.3. Basic metabolic profile was reviewed and was essentially withinnormal limits. PT was INR and PTT were reviewed and were within normal limits. High-sensitivity troponin was normal at 6. 2-hour repeat high-sensitivity troponin was normal at 6. Labs: Laboratory Results - last 24 hr 12/03/23 12/03/23 14:50 16:50 WBC 4.6 RBC 3.83 L Hgb 11.4 L Hct 33.3 L MCV 86.9 MCH 29.8 MCHC 34.2 RDW Std Deviation 39.1 RDW Coeff of Megan 12.3 Plt Count 189 MPV 9.2 Immature Gran % (Auto) 0.900 Neut % (Auto) 65.7 Lymph % (Auto) 19.4 [place] % (Auto) 11.2 H Eos % (Auto) 1.9 Baso % (Auto) 0.9 Absolute Neuts (auto) 3.0 Absolute Lymphs (auto) 0.90 Nucleated RBC % 0 PT 13.0 INR 1.0 APTT 27.7 Sodium 134 L Potassium 3.9 Chloride 101 Carbon Dioxide 28.0 Anion Gap 5 BUN 23 H Creatinine 1.02 Est GFR (MDRD) Af Amer 93 Est GFR (MDRD) Non-Af 77 BUN/Creatinine Ratio 22.5 H Glucose 264 H Calcium 9.0 Troponin I High Sens 6 6 Radiography Chest X-Ray - ED: 1 View, Read by ED Physician, Read by Radiologist and No AcuteDisease Diagnostic Testing: Clinical Impression(s) from Imaging Studies Chest X-Ray 12/03/23 15:49 IMPRESSION: No acute radiographic abnormalities. Electronically Signed: Nura Crowder MD at 16:48 EDT , Portable 1 view chest x-ray was obtained. On my independent interpretation, lung romero are clear. There is normal cardiac silhouette. Bony thorax is normal. There is no acute process noted. Radiologist also interpreted the x-ray and agrees. EKG Initial EKG: Attestation: I personally reviewed and interpreted this EKG as follows: Interpretation: Sinus Rhythm (88) and Non-Specific ST Changes Comments: EKG was obtained. On my independent interpretation, it showed anormal sinus rhythm with a rate of 88. NV interval, QRS interval, and QTc intervals were all normal. [place] was normal. There are nonspecific ST-T wave changes. Prior EKG tracings: available for review Prior: Unchanged (10/30/2023) Management Discussion w/another healthcare provider: Hospitalist Treatment and Re-Evaluation :: Patient was advised of his findings. Patient has a HEART score of 6. Because of this, I recommended admission to the hospital. Case was discussed with the hospitalist. He will admit the patient to his service. Patient understood and was agreeable with the plan. All questions were answered. Discharge Plan Triage Chief Complaint: Chest Pain ED Provider: Jered Huff Dx/Rx/DC Orders Clinical Impression: Essential (primary) hypertension, Chest pain Prescriptions: No Action omega 0-cbc-xdd-fish oil [Fish Oil] 1,000 mg (120 mg-180 mg) capsule 1,000 mg PO QDAY Patient Comments: 1200 mg PO QDAY metformin 500 mg tablet extended release 24 hr 1,000 mg PO BID atorvastatin 80 mg tablet 40 mg PO DAILY Hold Instructions: itching all over, no rash Galzin 50 mg (zinc) capsule 50 mg PO DAILY ranolazine 1,000 mg tablet extended release 12 hr 1,000 mg PO BID Qty: 60 11RF Brilinta 90 mg tablet 90 mg PO BID Qty: 60 11RF aspirin 81 MG tablet 81 mg PO DAILY@0800 amlodipine 5 mg tablet 5 mg PO DAILY Qty: 10 0RF pioglitazone 45 mg tablet 45 mg PO DAILY clopidogrel 75 mg tablet 75 mg PO DAILY pantoprazole 40 mg tablet,delayed release (DR/EC) 40 mg PO DAILY ferrous sulfate 325 mg (65 mg iron) tablet 325 mg PO BID nitroglycerin 0.4 mg tablet, sublingual 0.4 mg SUBLINGUAL Q5M PRN (Reason: Chest Pain) Qty: 25 6RF Rx Instructions: take one tablet every 5-15 to not exceed 3 tablets Primary Care Provider: Nadir Grady Referrals: Nadir Grady MD [Primary Care Provider] - Disposition Disposition: Acute Care [facility] What to do if you have Problems For any increased pain, shortness of breath, bleeding, nausea or vomiting, chestpain, or any unexpected problems, contact your Primary Care Provider. Call [facility] ([phone]) or report to the closest Emergency Room. Call 911 if necessary. 12/04/23 0000 <Electronically signed by Jered Huff DO> Cosigner Signature (if applicable): CC: Dr. Nadir Grady MD ~ Signed [facility] Work Phone: 1(709) 747-417704-03-2024 History and physical note Author Gildardo Walton [facility] December 03, 2023 6:51pm Note Date/Time December 03, 2023 6:51 pm [facility] Medical Records Department [address] [place] [id number] H&P Exam - Hospitalist 12/03/23 1826 MR#: [id number] Acct: [id number] Name: MICHAEL BATES Jr. Rep #:[id number] : 1955 68 From: Gildardo Escoto PCP: Dr. Nadir Grady MD Status:ADM JASON Location: [place] [address] HPI - General General Date of Admission: 12/03/23 Date of Service: 12/03/23 Chief Complaint: Chest pain on exertion since yesterday HPI Narrative MICHAEL BATES, is a 68 M with history of CAD status post multiple stents last1 in October 2023 came to ED for exertional chest pain that started yesterday. Patient states he was doing simple walking and chest pain started as pressure, 3-5/10 intensity, left-sided with radiation to interscapular area in the back. It is starts after 4 to 5 minutes of walking and goes away at taking rest. It lasted about 10 to 12 minutes. This happened today and therefore came to ED. Patient on Xarelto here shortness of breath dizziness but denies syncope or sweating/diaphoresis. Patient was last seen in cardiology clinic by Yolanda Dean on 10/30/2023. Patient also had a loop recorder for history of syncopewhich was removed on 11/23. Patient had cardiac cath on 10/10/2023. In ED, twelve-lead EKG shows normal sinus rhythm at [address]-T changes with T wave inversion in V1. Last EKG on 10/30/2023 is similar with normal sinus rhythm. Patient had 2 troponins negative. [facility] Medical History Atherosclerotic heart disease of [place] coronary artery without angina pectoris (10/10/23) Bilateral carotid artery stenosis BPH (benign prostatic hyperplasia) COVID-19 (06/2021) DDD (degenerative disc disease) Elevated LFTs Essential (primary) hypertension History of CAD (coronary artery disease) Hx of diabetes insipidus Hyperlipidemia Hypertension Sciatica Syncope (10/2021) Tremor of both hands Type 2 diabetes mellitus Home Medications aspirin 81 mg tablet,delayed release 81 mg PO DAILY@0800 heart health 09/13/13 [History Last Taken 06/13/22] omega 4-hrn-gag-fish oil 1,000 mg (120 mg-180 mg) capsule (Fish Oil) 1,000 mg POQDAY supplement 01/06/18 [History Last Taken 12/29/21] metformin 500 mg tablet,extended release 24 hr 1,000 mg PO BID 07/25/20 [History Last Taken 11/23/23] ferrous sulfate 325 mg (65 mg iron) tablet 325 mg PO BID 06/28/22 [History Last Taken Unknown] amlodipine 5 mg tablet 5 mg PO DAILY #10 tabs 10/23/23 [Rx Last Taken 11/24/23] atorvastatin 80 mg tablet 40 mg PO DAILY cholesterol 10/30/23 [History Last Taken Unknown] ranolazine 1,000 mg tablet,extended release,12 hr 1,000 mg PO BID #60 tabs 10/30/23 [Rx Last Taken Unknown] ticagrelor 90 mg tablet (Brilinta) 90 mg PO BID #60 tabs 10/30/23 [Rx Last Taken Unknown] zinc acetate 50 mg (zinc) capsule (Galzin) 50 mg PO DAILY supplement 10/30/23 [History Last Taken Unknown] nitroglycerin 0.4 mg sublingual tablet 0.4 mg sublingual Q5M PRN Chest Pain #25 tabs 11/14/23 [Rx Last Taken Unknown] clopidogrel 75 mg tablet 75 mg PO DAILY 12/03/23 [History Last Taken Unknown] pantoprazole 40 mg tablet,delayed release 40 mg PO DAILY 12/03/23 [History Last Taken Unknown] pioglitazone 45 mg tablet 45 mg PO DAILY 12/03/23 [History Last Taken Unknown] Allergy/AdvReac Type Severity Reaction Status Date / Time fludrocortisone Allergy Severe ANGIOEDEMA Verified 10/30/23 09:08 [From [facility]] losartan AdvReac Severe Angioedema Verified 10/30/23 09:33 perfume AdvReac Other Verified 10/30/23 09:08 Family History Sister CAD (coronary artery disease) CVA (cerebral vascular accident) Diabetes Myocardial infarction Hx of CABG Mother Cancer Lung CA Surgical History History of cataract surgery History of coronary artery stent placement (10/10/23) History of hand surgery History of left heart catheterization (10/10/23) History of loop recorder (12/13/21) Hx of appendectomy Social History Smoking Status: Never smoker alcohol intake: never substance use type: does not use caffeine: No what type of physical activity do you participate in: none seatbelt use: always do you feel safe at home: Yes ROS ROS Narrative Constitutional: Mild fatigue on walking no fever. HEENT: Reports systems reviewed and no addt'l complaints, except as documented Respiratory/Chest: As described in HPI. No dyspnea at rest CVS: As described in HPI Gastrointestinal: Denies coffee ground emesis, hematemesis or vomiting Genitourinary: Denies burning urination or new urinary tract symptoms Musculoskeletal: Denies acute joint pain or limited range of motion. No acute injury Neurologic: Denies seizure-like symptoms. skin: No ulcer. No rash Endocrinology: Reports systems reviewed and no addt'l complaints, except as documented Hematologic/Lymphatic: Reports systems reviewed and no addt'l complaints, exceptas documented Rest 14 ROS are negative except as mentioned in HPI Vital Signs Vital Signs Vital Signs: 12/03/23 14:14 12/03/23 14:51 12/03/23 16:14 Temperature 97.2 F L Temperature Source Temporal Pulse Rate 98 79 Respiratory Rate 16 16 Blood Pressure 172/88 H 153/80 H Blood Pressure Mean 116 104 Pulse Ox 97 95 Oxygen Delivery Method Room Air Room Air 12/03/23 17:52 Temperature 98.1 F Temperature Source Pulse Rate 91 Respiratory Rate 16 Blood Pressure 137/77 H Blood Pressure Mean 97 Pulse Ox 96 Oxygen Delivery Method Weight Weight: 198 lb 3.129 oz Body Mass Index (BMI) 28.4 Physical Exam Narrative General: Alert, Oriented x3, Cooperative HEENT: Atraumatic, PERRLA, EOMI, Normocephalic Oral: No Gingival or Mucosal Lesions/ Ulcerations Neck: Supple, No JVD, Negative Carotid Bruits Chest wall/Lungs: Air entry diminished in bilateral lung bases. No crepitation/rhonchi Cardiovascular: Regular rate, Regular Rhythm, Normal S1, Normal S2, holosystolicmurmur at LLSB and cardiac apex Abdomen: Bowel Sounds Present, Soft, Non Tender, Non-Distended : No dysuria. No renal angle tenderness. No suprapubic tenderness. Extremities: No edema, Capillary Refill Less than 3 Seconds Skin: No rashes, No breakdown Musculoskeletal: No Tenderness to Palpation of Joints or Extremities Neurological: Cranial nerves II-XII grossly intact, DTR 2+/4. No acute focal neurological deficit. Psych/Mental Status: Normal Affect, Appropriate. Results Lab / Micro Data 12/03/23 14:50 12/03/23 14:50 Labs: Laboratory Results - last 24 hr 12/03/23 14:50: WBC 4.6, RBC 3.83 L, Hgb 11.4 L, Hct 33.3 L, MCV 86.9, MCH 29.8,MCHC 34.2, RDW Std Deviation 39.1, RDW Coeff of Megan 12.3, Plt Count 189, MPV 9.2, Immature Gran % (Auto) 0.900, Neut % (Auto) 65.7, Lymph % (Auto) 19.4, [place]% (Auto) 11.2 H, Eos % (Auto) 1.9, Baso % (Auto) 0.9, Absolute Neuts (auto) 3.0,Absolute Lymphs (auto) 0.90, Nucleated RBC % 0, PT 13.0, INR 1.0, APTT 27.7, Sodium 134 L, Potassium 3.9, Chloride 101, Carbon Dioxide 28.0, Anion Gap 5, BUN23 H, Creatinine 1.02, Est GFR (MDRD) Af Amer 93, Est GFR (MDRD) Non-Af 77, BUN/Creatinine Ratio 22.5 H, Glucose 264 H, Calcium 9.0, Troponin I High Sens 6 12/03/23 16:50: Troponin I High Sens 6 Imaging Radiology Impression Chest X-Ray 12/03/23 15:49 IMPRESSION: No acute radiographic abnormalities. Electronically Signed: Nura Crowder MD at 16:48 EDT , Assessment & Plan Assessment/Plan (1) Chest pain, atypical: PLAN: Plan This is 68-year-old gentleman with history of CAD status post multiple stents came in for evaluation of chest pain. 1. Atypical chest pain, most likely unstable angina: Patient is being admitted in PCU. SHARRI risk score is 5 out of 7. Chest x-ray and EKG does not show acuteabnormality. Patient had last echo in October 2023 reported as EF 60% moderate2+ MR, aortic sclerosis LA moderately enlarged. Cardiac cath in October 2023 during previous admission shows multivessel CAD, 50% proximal LAD, 50 to 60% midLAD, 70% proximal OM 2 unchanged, 95% calcified proximal RCA, mid RCA and 70% distal RCA. Patient had PTCA/RODDY of the proximal and mid RCA and distal RCA. Patient was discharged on aspirin, Brilinta, statin Coreg losartan, sublingual nitro and Ranexa. But this admission, home medication does not show carvedilol. Patient has angioedema with losartan. Plan: 1 more troponin and repeat EKG. Pharmacological nuclear stress test for tomorrow AM. Patient does not have chest pain at rest. 2. CAD with multiple stents, mild MR: As mentioned above. Patient also historyof multiple syncope thought to be neurological and had loop recorder which was removed in October 2023. 3. Type 2 diabetes mellitus: Hold metformin and pioglitazone. Glucose is high at 264 in BMP. Lantus 10 units subcutaneous at bedtime daily. Accu-Cheks ACH cover with Humalog sliding scale. Repeat A1c during last admission was 7.3%. 4. Mild chronic normocytic normochromic anemia: Patient on ferrous sulfate continued. 5. Hypertension: Patient on amlodipine and other medications as mentioned above. BP was elevated in ED systolic 172 but has improved now. Monitor BP. Living will/advanced directive/end of life care: Patient does have living will or advanced directive. His brother present in ED is power of development technical lead for health. After discussion of benefits/risks procedures involved with full code,DNR CC arrest and DNR CC, the patient opted for DNR CC arrest with no intubation Patient doesn't want artificial life support including intubation, tube feed, ventilator and/chest compression, central venous catheter, vasopressor and DC shock if needed Total time spent in [id number] encounter in discussion of advanced directive 17 minutes. Laboratory Results 12/03/23 14:50: WBC 4.6, RBC 3.83 L, Hgb 11.4 L, Hct 33.3 L, MCV 86.9, MCH 29.8,MCHC 34.2, RDW Std Deviation 39.1, RDW Coeff of Megan 12.3, Plt Count 189, MPV 9.2, Immature Gran % (Auto) 0.900, Neut % (Auto) 65.7, Lymph % (Auto) 19.4, Cabell% (Auto) 11.2 H, Eos % (Auto) 1.9, Baso % (Auto) 0.9, Absolute Neuts (auto) 3.0,Absolute Lymphs (auto) 0.90, Nucleated RBC % 0, PT 13.0, INR 1.0, APTT 27.7, Sodium 134 L, Potassium 3.9, Chloride 101, Carbon Dioxide 28.0, Anion Gap 5, BUN23 H, Creatinine 1.02, Est GFR (MDRD) Af Amer 93, Est GFR (MDRD) Non-Af 77, BUN/Creatinine Ratio 22.5 H, Glucose 264 H, Calcium 9.0, Troponin I High Sens 6 12/03/23 16:50: Troponin I High Sens 6 Clinical Impression(s) from Imaging Studies Chest X-Ray 12/03/23 15:49 IMPRESSION: No acute radiographic abnormalities. Charges/Coding Visit Charges Inpatient E&M: 79964 Init Hosp L3 Procedures Hospitalists Procedures: 06073 Advncd Care Plan 30 Min 12/03/23 1851 <Electronically signed by Gildardo Walton MD> Cosigner Signature (if applicable): CC: Dr. Nadir Grady MD; Dr. Gildardo Walton MD~ Signed [facility] Work Phone: 1(661) 612-454702-29-2024 Miscellaneous Notes* Addendum Note - Nadir Grady MD - 10/30/2023 2:08 PM ESTAddended by: NADIR GRADY on: 10/30/2023 02:08 PM Modules accepted: Orders documented in this encounterOhio [facility]29-2024 History of Present illness Narrative* Luis E Agudelo LPN - 10/30/2023 10:54 AM EST Scan on 10/30/2023 10:06 AM by Provider, External, PA-C: Consultation - Cardiology documented in this encounterOhio [facility]02-23-2024 History of Present illness Narrative* Mynor Rasmussen LPN - 10/24/2023 10:16 AM EST Losartan 25mg dc'd (ordered by Cardiology) d/t angioedema. Allergy/ Med list updated. Scan on 10/23/2023 4:34 PM by Sonido Lemon PA-C: Consultation - Emergency Medicine documented in this encounterOhio [facility]02-22-2024 History of Present illness Narrative* Luis E Agudelo LPN - 10/23/2023 2:18 PM EST Scan on 10/23/2023 10:14 AM by ProviderSonido PA-C: X-ray documented in this encounterOhio [facility]02-22-2024 History of Present illness Narrative* Ruthann Wadsworth APRN.MIGEL - 10/23/2023 9:14 AM EST Patient recently had been placed on losartan. Patient presents today with moderate lip swelling andfeeling like his tongue is swelling. Patient denies any difficulty breathing at this time. Due to possible angioedema patient is being referred to the ER for full evaluation. Patient was okay with this care plan and prefers to take himself. He did not want to squad called. documented in this encounterOhio [facility]02-15-2024 History of Present illness Narrative* Luis E Agudelo LPN - 10/16/2023 8:12 AM EST Scan on 10/15/2023 1:30 PM by ProviderSonido PA-C: Consultation - Emergency Medicine Scan on 10/15/2023 9:30 AM by Provider, HOANG Head: X-ray documented in this encounterOhio [facility]02-10-2024 Discharge summary Author Foster Mayberry [facility] October 11, 2023 11:30am Note Date/Time October 11, 2023 11:27am [facility] Medical Records Department [address] [place] [address] Instructions for Home/Discharge Instructions 10/11/23 1127 MR#: [id number] Acct: [id number] Name: MICHAEL BATES Jr. Rep #:[id number] : 1955 68 From: Foster soni DO PCP: Dr. Nadir Grady MD Status:ADM IN Discharge Instructions Diet Discharge Diet: No restrictions Activity Discharge Activity: No Restrictions Weight Bearing Status: Full weight bearing Follow Up Care Test Results: Test results from this visit will be discussed in further detail at your follow- up appointment, if applicable. Discharge Plan Admission Admit Date/Time: 10/09/23 19:59 Primary Reason for Your Visit: chest pain Attending Provider: Foster Mayberry Primary Care Provider: Nadir Grady Consulting Providers: Ez Hurst; Gildardo Walton Instructions Additional Instructions / Restrictions: Please take medications as prescribed below. Follow-up with cardiology in the office in 2 to 4 weeks. Discharge Orders/Prescriptions Prescriptions: New carvedilol 3.125 mg Tablet 3.125 mg PO BID 30 Days Qty: 60 0RF losartan 25 mg Tablet 25 mg PO DAILY 30 Days Qty: 30 0RF Brilinta 90 mg Tablet 90 mg PO BID 30 Days Qty: 60 0RF Continued omega 2-rvx-ezr-fish oil [Fish Oil] 1,000 mg (120 mg-180 mg) capsule 1,000 mg PO QDAY Patient Comments: 1200 mg PO QDAY metformin 500 mg tablet extended release 24 hr 500 mg PO BID pantoprazole [Protonix] 40 mg tablet,delayed release (DR/EC) 40 mg PO DAILY Qty: 30 11RF ranolazine 500 mg tablet extended release 12 hr 500 mg PO BID Qty: 60 3RF aspirin 81 MG tablet 81 mg PO DAILY@0800 lorazepam 0.5 mg Tablet 0.5 mg PO BID PRN (Reason: Anxiety) pioglitazone 45 mg tablet 45 mg PO DAILY Patient Comments: Take 1 tablet by mouth once daily. ferrous sulfate 325 mg (65 mg iron) tablet 325 mg PO DAILY nitroglycerin 0.4 mg tablet, sublingual 0.4 mg SUBLINGUAL Q5M PRN (Reason: Chest Pain) Qty: 25 6RF Rx Instructions: take one tablet every 5-15 to not exceed 3 tablets atorvastatin 80 mg tablet 80 mg PO DAILY Qty: 90 3RF Hold Instructions: itching all over, no rash Discontinued pioglitazone [Actos] 30 mg Tablet 30 mg PO DAILY clopidogrel [Plavix] 75 mg tablet 75 mg PO DAILY Qty: 90 3RF Hold Instructions: itching all over, no rash Referrals / Follow Up: Nadir Grady MD [Primary Care Provider] - Disposition Disposition (needs filled in before D/C Order can be placed): Home, Self Care 10/11/23 1130<Electronically signed by Foster Mayberry DO>Foster Mayberry DO CC: Dr. Ez Hurst MD; Dr. Nadir Grady MD; Dr. Gildardo Walton MD ~ Signed [facility] Work Phone: 1(600) 342-127902-10-2024 Progress note Author Ez Hurst [facility] October 11, 2023 9:43am Note Date/Time October 11, 2023 9:43am [facility] Medical Records Department [address] [place] [address] Progress Note 10/11/2342 MR#: [id number] Acct: [id number] Name: MICHAEL BATES JrMukesh Rep #:[id number] : 1955 68 From: Ez Hurst MD PCP: Dr. Nadir Grady MD Status:ADM IN Location: [place] [address] Progress Note Denies any complaints. No angina. May discharge home from a cardiology standpoint. Follow-up with Dr. Kern in 2 to 4 weeks. Continue aspirin lifelong. Ticagrelor for at least 1 year. 10/11/23 0943 <Electronically signed by Ez Hurst MD> Ez Hurst MD Cosigner Signature (if applicable): CC: ~ Signed [facility] Work Phone: 1(335) 386-176902-10-2024 History of Present illness Narrative* Luis E Agudelo LPN - 10/11/2023 8:35 AM EST Scan on 10/10/2023 3:46 PM by ProviderSonido PA-C: Consultation - Cardiology Scan on 10/10/2023 4:17 PM by ProviderSonido PA-C: Cardiac Cath Scan on 10/10/2023 4:19 PM by ProviderSonido PA-C: Echo documented in this encounterOhio [facility]02-09-2024 Progress note Author Foster Mayberry [facility] October 10, 2023 4:53pm Note Date/Time October 10, 2023 2 :51pm [facility] Medical Records Department [address] [place] [address] Progress Note - Hospitalist 10/10/23 1451 MR#: [id number] Acct: [id number] Name: MICHAEL BATES JrMukesh Rep #:[id number] : 1955 68 From: Foster soni DO PCP: Dr. Nadir Grady MD Status:ADM IN Location: [place] [address] Reason for Visit Reason for Visit: Diagnoses Unstable angina (10/09/23) Subjective Subjective Patient was admitted yesterday evening for worsening chest pain/pressure with shortness of breath in the setting of known history of extensive heart disease. Was admitted for further cardiac evaluation. Patient seen at bedside this morning, family members present. Patient was sitting up comfortably in bed, conversing normally, no acute distress. Patient states that he continues to have mild chest pressure this morning, improved from yesterday evening. Denies any shortness of breath at rest, has not gotten out of bed yet this morning. Denies any fevers or chills. No other concerns at this time. Objective Data Objective Data Vital Signs: Vital Signs Temp Pulse Resp BP Pulse Ox O2 Del Method 97.3 F L 67 16 159/81 H 95 Room Air 10/10/23 11:57 10/10/23 11:57 10/10/23 11:57 10/10/23 11:57 10/10/23 11:57 10/10/23 11:57 Oxygen Delivery Method Room Air Weight: 89 kg Body Mass Index (BMI) 28.1 Intake & Output: Intake and Output for Last 24 Hours 10/08/23 10/09/23 10/10/23 23:59 23:59 23:59 Intake Total 253.5 / 253.5 163.27 / 163.27 Balance 253.5 / 253.5 163.27 / 163.27 Lab / Micro Data 10/10/23 06:10 10/10/23 06:10 Labs: Laboratory Results - last 24 hr 10/09/23 18:30: WBC 7.1, RBC 3.87 L, Hgb 11.5 L, Hct 35.0 L, MCV 90.4, MCH 29.7,MCHC 32.9, RDW Std Deviation 42.6, RDW Coeff of Megan 13.0, Plt Count 210, MPV 9.5, Immature Gran % (Auto) 0.400, Neut % (Auto) 63.1, Lymph % (Auto) 25.4, Cabell% (Auto) 7.7, Eos % (Auto) 2.7, Baso % (Auto) 0.7, Absolute Neuts (auto) 4.5, Absolute Lymphs (auto) 1.81, Nucleated RBC % 0, PT 12.4, INR 0.9, APTT 27.0, Sodium 138, Potassium 4.4, Chloride 105, Carbon Dioxide 26.0, Anion Gap 7, BUN 31 H, Creatinine 1.21, Estim Creat Clear Calc 70.42, Est GFR (MDRD) Af Amer 76, Est GFR (MDRD) Non-Af 63, BUN/Creatinine Ratio 25.6 H, Glucose 285 H, Calcium 8.6, Magnesium 2.1, Troponin I High Sens 5 10/09/23 20:35: Troponin I High Sens 13 10/09/23 22:16: POC Glucose 162 H 10/10/23 01:10: APTT 88.4 H, Troponin I High Sens 21 10/10/23 06:10: WBC 5.2, RBC 3.66 L, Hgb 11.0 L, Hct 32.9 L, MCV 89.9, MCH 30.1,MCHC 33.4, RDW Std Deviation 43.4, RDW Coeff of Megan 13.2, Plt Count 177, MPV 9.4, Immature Gran % (Auto) 0.600, Neut % (Auto) 61.8, Lymph % (Auto) 24.7, Cabell% (Auto) 8.2, Eos % (Auto) 3.9, Baso % (Auto) 0.8, Absolute Neuts (auto) 3.2, Absolute Lymphs (auto) 1.27, Nucleated RBC % 0, Sodium 141, Potassium 4.0, Chloride 109 H, Carbon Dioxide 25.0, Anion Gap 7, BUN 19 H, Creatinine 0.86, Estim Creat Clear Calc 89.76, Est GFR (MDRD) Af Amer 112, Est GFR (MDRD) Non-Af 93, BUN/Creatinine Ratio 22.0 H, Glucose 145 H, Calcium 8.7, B-Natriuretic Peptide 41.9, Triglycerides 86, Cholesterol 129, LDL Cholesterol 52, VLDL Cholesterol 17, HDL Cholesterol 60, TSH 3.00 10/10/23 06:40: POC Glucose 148 H 10/10/23 09:28: APTT 53.1 H 10/10/23 12:25: POC Glucose 147 H Radiography Diagnostic Testing: Radiology Impression Chest X-Ray 10/09/23 18:40 IMPRESSION: No acute disease Electronically Signed: Odin Villaseñor MD at 18:53 EST Reading Location ID and State: [address] [place] [address] Tel , Service support , Physical Exam Const alert, oriented x3, no apparent distress and average body habitus Constitutional Narrative: Pleasant elderly male, sitting up comfortably in bed, conversing normally, no acute distress. General Appearance: cooperative and comfortable HEENT normocephalic, head/scalp atraumatic, hearing grossly normal bilaterally, nasal mucous membranes and turbinates normal and moist oral mucous membranes Eyes PERRL, EOMs intact bilaterally and conjunctivae normal Neck full ROM, no lymphadenopathy and supple Lymph Lymphatic: no lymphadenopathy noted Chest inspection of chest normal Resp normal respiratory effort, normal air movement, no use of accessory muscles and clear to auscultation bilaterally Cardio regular rate, regular rhythm, no murmurs and peripheral pulses 2+ throughout GI normal to inspection, nondistended, normoactive bowel sounds, soft to palpation,non-tender and non-distended Back/Spine normal ROM Extremity normal to inspection, full ROM and no pedal edema Skin no rashes or lesions noted Neuro no focal motor deficits and no sensory deficits noted Speech: speech normal Psych mental status grossly normal Assessment & Plan Assessment/Plan (1) Unstable angina: PLAN: Plan Patient is a 68-year-old male who presented to [facility] ED on 10/09/2023 with worsening chest pain and shortness of breath. 1. Unstable angina, history of CAD s/p stenting Presented with chest pain with radiation to left hand and mild shortness of breath. EKG showed ST depressions in V5 and V6, otherwise sinus tachycardia with heart rate 105. Troponins negative. Last PCI with stenting was done in 07/2021. Stress test in 06/2023 was normal, showed preserved EF. TTE 10/09 showed EF 60%, normal diastolic function, mildly enlarged LA, aortic sclerosis with no stenosis, moderate mitral valve insufficiency. ? Cardiology following. S/p left heart cath on 10/10 with RODDY x 1 to distal RCA. Recommendation per cardiology for aspirin indefinitely and Brilinta for at least12 months. Continue home statin. Also initiated on Coreg 3.125 mg twice daily,losartan 25 mg daily on 10/10 per cardiology recommendations. Monitor, if remainsstable on 10/11, likely okay for discharge home. Chronic medical conditions: ? Type 2 diabetes mellitus with hyperglycemia: Home regimen of metformin 500 mg twice daily, pioglitazone 45 mg daily. Glucose 285 on admit. Last A1c of 7.5% back in 2020, repeat A1c pending. Continue Lantus 10 units at night with sliding-scale insulin, adjust as needed. ? Mild normocytic anemia: Hemoglobin stable at baseline. Continue home iron supplement. ? Anxiety: Continue home Ativan 0.5 mg twice daily as needed. DVT prophylaxis: Lovenox CODE STATUS: DNR CCA, DNI Expected disposition: Home, tomorrow Total clinical time spent by myself addressing the patient's medical issues, reviewing all the data, and collaborating with patient's care team: 35 minutes. Charges/Coding Visit Charges Inpatient E&M: 21804 Subs Hosp L2 10/10/23 7719 <Electronically signed by Foster Mayberry DO> Cosigner Signature (if applicable): CC: ~ Signed [facility] Work Phone: 1(506) 729-283602-09-2024 Consult note Author Ez Hurst [facility] October 10, 2023 3:39pm Note Date/Time October 10, 2023 3 :39pm [facility] Medical Records Department [address] [place] [address] Consultation - Cardiology 10/10/23 1534 MR#: [id number] Acct: [id number] Name: MICHAEL BATES Jr. Rep #:[id number] : 1955 68 From: Ez Hurst MD PCP: Dr. Nadir Grady MD Status:ADM IN Location: [place] [address] Assessment & Plan Assessment/Plan (1) Unstable angina: PLAN: Recommend coronary angiography with possible revascularization. Risks benefits and alternatives explained. He understands these and wishes to proceed. (2) History of CAD (coronary artery disease): PLAN: See #1 above. Continue aspirin and Plavix. (3) Hypertension: PLAN: Started on beta-blockers. (4) Hyperlipidemia: QUALIFIERS: Hyperlipidemia type: unspecified Qualified Code(s): E78.5 - Hyperlipidemia, unspecified PLAN: Atorvastatin. (5) Type 2 diabetes mellitus: PLAN: As per internal medicine. HPI Consult Data Date of Consult: 10/10/23 HPI Narrative Reason for Consultation: Chest pain HPI Narrative: Gentleman with past medical history significant for coronary artery disease status post multiple percutaneous interventions, hypertension and dyslipidemia. He presented to the emergency room with complaints of chest pain at rest yesterday. He perceives it as a pressure across his anterior chest. No radiation. According to him, he has been having some exertional chest pain for the last couple of years but it has gradually been getting worse. Rest pain yesterday. [facility] Medical History Atherosclerotic heart disease of [place] coronary artery without angina pectoris Bilateral carotid artery stenosis BPH (benign prostatic hyperplasia) COVID-19 (06/2021) DDD (degenerative disc disease) Elevated LFTs Essential (primary) hypertension Hyperlipidemia Sciatica Syncope (10/2021) Tremor of both hands Type 2 diabetes mellitus Home Medications aspirin 81 mg tablet,delayed release 81 mg PO DAILY@0800 heart [facility] 09/13/13 [History Last Taken 02/11/22] omega 0-ufs-abm-fish oil 1,000 mg (120 mg-180 mg) capsule (Fish Oil) 1,000 mg POQDAY supplement 01/06/18 [History Last Taken 12/29/21] metformin 500 mg tablet,extended release 24 hr 500 mg PO BID 07/25/20 [History Last Taken 02/10/22] lorazepam 0.5 mg tablet 0.5 mg PO BID PRN Anxiety 05/23/22 [History Last Taken Unknown] pioglitazone 30 mg tablet (Actos) 30 mg PO DAILY diabetes 06/19/22 [History Last Taken Unknown] ferrous sulfate 325 mg (65 mg iron) tablet 325 mg PO DAILY 06/28/22 [History Last Taken Unknown] pantoprazole 40 mg tablet,delayed release (Protonix) 40 mg PO DAILY #30 tabs 07/16/22 [Rx Last Taken Unknown] nitroglycerin 0.4 mg sublingual tablet 0.4 mg sublingual Q5M PRN Chest Pain #25 tabs 09/03/22 [Rx Last Taken Unknown] ranolazine 500 mg tablet,extended release,12 hr 500 mg PO BID #60 tabs 05/15/23 [Rx Last Taken Unknown] atorvastatin 80 mg tablet 80 mg PO DAILY cholesterol #90 tabs 07/02/23 [Rx Last Taken Unknown] clopidogrel 75 mg tablet (Plavix) 75 mg PO DAILY #90 tabs 07/02/23 [Rx Last Taken Unknown] pioglitazone 45 mg tablet 45 mg PO DAILY diabetes 10/09/23 [History Last Taken Unknown] Allergy/AdvReac Type Severity Reaction Status Date / Time fludrocortisone Allergy Severe ANGIOEDEMA Verified 10/09/23 18:11 [From [facility]] perfume AdvReac Other Verified 10/09/23 18:11 Family History Sister CAD (coronary artery disease) CVA (cerebral vascular accident) Diabetes Myocardial infarction Hx of CABG Mother Cancer Lung CA Surgical History History of cataract surgery History of coronary artery stent placement (07/23/21) History of hand surgery History of left heart catheterization (02/11/22) History of loop recorder (12/13/21) Hx of appendectomy Social History Smoking Status: Never smoker alcohol intake: never substance use type: does not use caffeine: No what type of physical activity do you participate in: none seatbelt use: always do you feel safe at home: Yes Physical Exam Const Constitutional Narrative: Comfortable. No apparent distress. Heart sounds 1 and 2 noted. 2/6 systolic murmur at base. Chest clear to auscultation bilaterally. Alert oriented x 3. No ankle edema. Risk Stratification Risk Stratification Applicable: No Objective Data Vital Signs: Vital Signs Temp Pulse Resp BP Pulse Ox O2 Del Method 97.3 F L 67 16 159/81 H 95 Room Air 10/10/23 11:57 10/10/23 11:57 10/10/23 11:57 10/10/23 11:57 10/10/23 11:57 10/10/23 11:57 Oxygen Delivery Method Room Air Weight: 196 lb 3.382 oz Body Mass Index (BMI) 28.1 Intake & Output: Intake and Output for Last 24 Hours 10/08/23 10/09/23 10/10/23 23:59 23:59 23:59 Intake Total 253.5 / 253.5 163.27 / 163.27 Balance 253.5 / 253.5 163.27 / 163.27 Lab / Micro Data 10/10/23 06:10 10/10/23 06:10 Labs: Laboratory Results - last 24 hr 10/09/23 18:30: WBC 7.1, RBC 3.87 L, Hgb 11.5 L, Hct 35.0 L, MCV 90.4, MCH 29.7,MCHC 32.9, RDW Std Deviation 42.6, RDW Coeff of Megan 13.0, Plt Count 210, MPV 9.5, Immature Gran % (Auto) 0.400, Neut % (Auto) 63.1, Lymph % (Auto) 25.4, [place]% (Auto) 7.7, Eos % (Auto) 2.7, Baso % (Auto) 0.7, Absolute Neuts (auto) 4.5, Absolute Lymphs (auto) 1.81, Nucleated RBC % 0, PT 12.4, INR 0.9, APTT 27.0, Sodium 138, Potassium 4.4, Chloride 105, Carbon Dioxide 26.0, Anion Gap 7, BUN 31 H, Creatinine 1.21, Estim Creat Clear Calc 70.42, Est GFR (MDRD) Af Amer 76, Est GFR (MDRD) Non-Af 63, BUN/Creatinine Ratio 25.6 H, Glucose 285 H, Calcium 8.6, Magnesium 2.1, Troponin I High Sens 5 10/09/23 20:35: Troponin I High Sens 13 10/09/23 22:16: POC Glucose 162 H 10/10/23 01:10: APTT 88.4 H, Troponin I High Sens 21 10/10/23 06:10: WBC 5.2, RBC 3.66 L, Hgb 11.0 L, Hct 32.9 L, MCV 89.9, MCH 30.1,MCHC 33.4, RDW Std Deviation 43.4, RDW Coeff of Megan 13.2, Plt Count 177, MPV 9.4, Immature Gran % (Auto) 0.600, Neut % (Auto) 61.8, Lymph % (Auto) 24.7, [place]% (Auto) 8.2, Eos % (Auto) 3.9, Baso % (Auto) 0.8, Absolute Neuts (auto) 3.2, Absolute Lymphs (auto) 1.27, Nucleated RBC % 0, Sodium 141, Potassium 4.0, Chloride 109 H, Carbon Dioxide 25.0, Anion Gap 7, BUN 19 H, Creatinine 0.86, Estim Creat Clear Calc 89.76, Est GFR (MDRD) Af Amer 112, Est GFR (MDRD) Non-Af 93, BUN/Creatinine Ratio 22.0 H, Glucose 145 H, Calcium 8.7, B-Natriuretic Peptide 41.9, Triglycerides 86, Cholesterol 129, LDL Cholesterol 52, VLDL Cholesterol 17, HDL Cholesterol 60, TSH 3.00 10/10/23 06:40: POC Glucose 148 H 10/10/23 09:28: APTT 53.1 H 10/10/23 12:25: POC Glucose 147 H Cardiology Labs/Tests 10/09/23 18:30: WBC 7.1, RBC 3.87 L, Hgb 11.5 L, Hct 35.0 L, MCV 90.4, MCH 29.7,MCHC 32.9, Plt Count 210, MPV 9.5, Immature Gran % (Auto) 0.400, Neut % (Auto) 63.1, Lymph % (Auto) 25.4, [place] % (Auto) 7.7, Eos % (Auto) 2.7, Baso % (Auto) 0.7, Absolute Neuts (auto) 4.5, Nucleated RBC % 0, PT 12.4, INR 0.9, APTT 27.0, Sodium 138, Potassium 4.4, Chloride 105, Carbon Dioxide 26.0, Anion Gap 7, BUN 31 H, Creatinine 1.21, Est GFR (MDRD) Af Amer 76, Est GFR (MDRD) Non-Af 63, BUN/Creatinine Ratio 25.6 H, Glucose 285 H, Calcium 8.6, Magnesium 2.1 10/10/23 01:10: APTT 88.4 H 10/10/23 06:10: WBC 5.2, RBC 3.66 L, Hgb 11.0 L, Hct 32.9 L, MCV 89.9, MCH 30.1,MCHC 33.4, Plt Count 177, MPV 9.4, Immature Gran % (Auto) 0.600, Neut % (Auto) 61.8, Lymph % (Auto) 24.7, [place] % (Auto) 8.2, Eos % (Auto) 3.9, Baso % (Auto) 0.8, Absolute Neuts (auto) 3.2, Nucleated RBC % 0, Sodium 141, Potassium 4.0, Chloride 109 H, Carbon Dioxide 25.0, Anion Gap 7, BUN 19 H, Creatinine 0.86, EstGFR (MDRD) Af Amer 112, Est GFR (MDRD) Non-Af 93, BUN/Creatinine Ratio 22.0 H, Glucose 145 H, Calcium 8.7, B-Natriuretic Peptide 41.9, Triglycerides 86, Cholesterol 129, LDL Cholesterol 52, VLDL Cholesterol 17, HDL Cholesterol 60 10/10/23 09:28: APTT 53.1 H Rhythm: EKG: ECHO: Stress Test: Cardiac Cath: PCI: CT Surgery: Holter monitor: EPS: PPM: CXR: Chest CT Scan: Radiography Diagnostic Testing: Radiology Impression Chest X-Ray 10/09/23 18:40 IMPRESSION: No acute disease Electronically Signed: Odin Villaseñor MD at 18:53 EST Reading Location ID and State: [facility] / [place] Tel , Service support , 10/10/23 1539 <Electronically signed by Ez Hurst MD> Cosigner Signature (if applicable): CC: Dr. Ez Hurst MD; Dr. Nadir Grady MD; Dr. Gildardo Walton MD~ Signed [facility] Work Phone: 1(217) 252-715102-09-2024 History of Present illness Narrative* Luis E Agudelo LPN - 10/10/2023 7:22 AM EST Scan on 10/09/2023 8:13 PM by ProviderSonido PA-C: Consultation - Emergency Medicine Scan on 10/09/2023 6:58 PM by ProviderSonido PA-C: X-ray Scan on 10/09/2023 9:13 PM by ProviderSonido PA-C documented [facility] this [facility]-20[facility] History and physical note Author Gildardo Walton [facility] October 09, 2023 9:01pm Note Date/Time October 09, 2023 8 :07pm [facility] Medical Records Department [address] [place] [address] H&P Exam - Hospitalist 10/09/232004 MR#: [id number] Acct: [id number] Name: MICHAEL BATES JrMukesh Rep #:[id number] : 1955 68 From: Gildardo Escoto PCP: Dr. Nadir Grady MD Status:ADM IN Location: [facility] [id number] HPI - General General Date of Admission: 10/09/23 Date of Service: 10/09/23 Chief Complaint: Worsening of chest pain/pressure chest pain today along with shortness of breath HPI Narrative MICHAEL BATES, is a 68 M with history of chronic CAD status post multiple stents chest pain what he describes as pressure in the middle with radiation to left hand along with numbness and tingling. He states he has exertional chest pressure every time he exert for last few years along with shortness of breath. But today while he was cleaning his garage he felt chest pressure manage initially went away after resting. But when he was resting inside chest pressure came back with shortness of breath in addition to left arm and interscapular area. He also felt dizzy lightheaded but not diaphoretic. Patient last PCI and stent was in July 22, 2021. Patient did not had syncope recently but has history of syncope in October 2021 when had a loop recorder in November 2021. Patient last stress test in June 2023 was normal pharmacological perfusion stress test with preserved EF. Twelve-lead EKG done in the ED reviewed and shows ST depression in V5 V6 as compared to previous EKG of 20 Jan 2023. Otherwise sinus tachycardia 105 bpm. Patient blood pressure was high and sinus tachycardic 121 bpm came in ED. Currently it is better. Vitals labs chest x-ray reviewed and discussed assessment and plan. [facility] Medical History Atherosclerotic heart disease of [place] coronary artery without angina pectoris Bilateral carotid artery stenosis BPH (benign prostatic hyperplasia) COVID-19 (06/2021) DDD (degenerative disc disease) Elevated LFTs Essential (primary) hypertension Hyperlipidemia Sciatica Syncope (10/2021) Tremor of both hands Type 2 diabetes mellitus Home Medications aspirin 81 mg tablet,delayed release 81 mg PO DAILY@0800 heart [facility] 09/13/13 [History Last Taken 02/11/22] omega 5-wlf-mre-fish oil 1,000 mg (120 mg-180 mg) capsule (Fish Oil) 1,000 mg POQDAY supplement 01/06/18 [History Last Taken 12/29/21] metformin 500 mg tablet,extended release 24 hr 500 mg PO BID 07/25/20 [History Last Taken 02/10/22] lorazepam 0.5 mg tablet 0.5 mg PO BID PRN Anxiety 05/23/22 [History Last Taken Unknown] pioglitazone 30 mg tablet (Actos) 30 mg PO DAILY 06/19/22 [History Last Taken Unknown] ferrous sulfate 325 mg (65 mg iron) tablet 325 mg PO DAILY 06/28/22 [History Last Taken Unknown] pantoprazole 40 mg tablet,delayed release (Protonix) 40 mg PO DAILY #30 tabs 07/16/22 [Rx Last Taken Unknown] nitroglycerin 0.4 mg sublingual tablet 0.4 mg sublingual Q5M PRN Chest Pain #25 tabs 09/03/22 [Rx Last Taken Unknown] fluticasone propionate 50 mcg/actuation nasal spray,suspension 1 spray intranasal BID 10/23/22 [History Last Taken Unknown] ranolazine 500 mg tablet,extended release,12 hr 500 mg PO BID #60 tabs 05/15/23 [Rx Last Taken Unknown] atorvastatin 80 mg tablet 80 mg PO DAILY cholesterol #90 tabs 07/02/23 [Rx Last Taken Unknown] clopidogrel 75 mg tablet (Plavix) 75 mg PO DAILY #90 tabs 07/02/23 [Rx Last Taken Unknown] Allergy/AdvReac Type Severity Reaction Status Date / Time fludrocortisone Allergy Severe ANGIOEDEMA Verified 10/09/23 18:11 [From [facility]] perfume AdvReac Other Verified 10/09/23 18:11 Family History Sister CAD (coronary artery disease) CVA (cerebral vascular accident) Diabetes Myocardial infarction Hx of CABG Mother Cancer Lung CA Surgical History History of cataract surgery History of coronary artery stent placement (07/23/21) History of hand surgery History of left heart catheterization (02/11/22) History of loop recorder (12/13/21) Hx of appendectomy Social History Smoking Status: Never smoker alcohol intake: never substance use type: does not use caffeine: No what type of physical activity do you participate in: none seatbelt use: always do you feel safe at home: Yes ROS ROS Narrative Constitutional: Reports fatigue and weakness. No fever. HEENT: Reports systems reviewed and no addt'l complaints, except as documented Respiratory/Chest: Exertional dyspnea along with chest pressure CVS: As described in HPI. Gastrointestinal: Denies coffee ground emesis, hematemesis or vomiting Genitourinary: Denies burning urination or new urinary tract symptoms Musculoskeletal: Denies acute joint pain or limited range of motion. No acute injury Neurologic: Denies seizure-like symptoms. skin: No ulcer. No rash Endocrinology: Reports systems reviewed and no addt'l complaints, except as documented Hematologic/Lymphatic: Reports systems reviewed and no addt'l complaints, exceptas documented Rest 14 ROS are negative except as mentioned in HPI Vital Signs Vital Signs Vital Signs: 10/09/23 18:10 10/09/23 18:49 10/09/23 19:02 Temperature 97.4 F L Temperature Source Temporal Pulse Rate 112 H 96 Respiratory Rate 18 Respiratory Effort Normal Non-Labored Blood Pressure 191/81 H 138/73 H Blood Pressure Mean 117 94 Pulse Ox 95 Oxygen Delivery Method Room Air Weight Weight: 241 lb 10.026 oz Body Mass Index (BMI) 34.7 Physical Exam Narrative General: Alert, Oriented x3, Cooperative HEENT: Atraumatic, PERRLA, EOMI, Normocephalic Oral: No Gingival or Mucosal Lesions/ Ulcerations Neck: Supple, No JVD, Negative Carotid Bruits Chest wall/Lungs: Air entry diminished in bilateral lung bases. No crepitation/rhonchi Cardiovascular: Regular rate, Regular Rhythm, Normal S1, Normal S2, systolic murmur present over right second ICS and B and cardiac apex Abdomen: Bowel Sounds Present, Soft, Non Tender, Non-Distended : No dysuria. No renal angle tenderness. No suprapubic tenderness. Extremities: No edema, Capillary Refill Less than 3 Seconds Skin: No rashes, No breakdown Musculoskeletal: No Tenderness to Palpation of Joints or Extremities. ROM full. Neurological: Cranial nerves II-XII grossly intact, DTR 2+/4. No acute focal neurological deficit. Psych/Mental Status: Normal Affect, Appropriate. Results Lab / Micro Data 10/09/23 18:30 10/09/23 18:30 Labs: Laboratory Results - last 24 hr 10/09/23 18:30: WBC 7.1, RBC 3.87 L, Hgb 11.5 L, Hct 35.0 L, MCV 90.4, MCH 29.7,MCHC 32.9, RDW Std Deviation 42.6, RDW Coeff of Megan 13.0, Plt Count 210, MPV 9.5, Immature Gran % (Auto) 0.400, Neut % (Auto) 63.1, Lymph % (Auto) 25.4, [place]% (Auto) 7.7, Eos % (Auto) 2.7, Baso % (Auto) 0.7, Absolute Neuts (auto) 4.5, Absolute Lymphs (auto) 1.81, Nucleated RBC % 0, PT 12.4, INR 0.9, APTT 27.0, Sodium 138, Potassium 4.4, Chloride 105, Carbon Dioxide 26.0, Anion Gap 7, BUN 31 H, Creatinine 1.21, Estim Creat Clear Calc 70.42, Est GFR (MDRD) Af Amer 76, Est GFR (MDRD) Non-Af 63, BUN/Creatinine Ratio 25.6 H, Glucose 285 H, Calcium 8.6, Magnesium 2.1, Troponin I High Sens 5 Imaging Radiology Impression Chest X-Ray 10/09/23 18:40 IMPRESSION: No acute disease Electronically Signed: Odin Villaseñor MD at 18:53 EST Reading Location ID and State: [facility] / [place] Tel , Service support , Assessment & Plan Assessment/Plan (1) Unstable angina: PLAN: Plan This 68-year-old gentleman with protracted history of CAD status post multiple PCI/stent admitted with exertional chest pain consistent with unstable angina. 1. Atypical chest pain most likely unstable angina:Patient is being admitted [facility]. SHARRI risk score is 5 out of 7. First troponin is negative. ED physician discussed with cardiology Dr. Elizondo and is being consulted. Patient started on IV heparin drip. Patient had last PCI in July [address] Cates. Proximal left circumflex in- stent restenosis 90% with RODDY. After that patient had pharmacological myocardial nuclear stress test in June 23 which reported normal. Last echo in July 2020 reported EF normal with [place]-normal. Stage I?oxygen. Bubble contrast today negative. Mild TR with PASP 35 mmHg. 2Decho ordered and I do not see any recent echo. Chest x- ray new lesion does not show a acute disease. 2. CAD status post multiple cardiac stents with history of syncope in November 2021 status post loop recorder. No recent syncope. Continue patient's home cardiac medications. Patient on baby aspirin, Plavix, atorvastatin high intensity and ranolazine. Patient not on beta-seun at home. Started on low-dose carvedilol 3.25 mg twice daily 3. Diabetes mellitus type 2 complicated with diabetic neuropathy: Glucose is high in BMP. Started on Lantus 10 units subcutaneous at night daily. Hold metformin and pioglitazone. Accu-Chek ACH cover with block sliding scale. 4. Hypertension and dyslipidemia: Blood pressure was elevated in ED but has improved and normal now 118/69. Heart rate 87/min 5. Dyslipidemia: 6. Mild normocytic normochromic anemia: H&H 11.5/35%. Platelet count normal 210. DVT prophylaxis: Patient on IV heparin drip. Living will/advanced directive/end of life care: Patient does have living will or advanced directive. His brother is power of development technical lead for health. After discussion of benefits/risks procedures involved with full code, DNR CC arrest and DNR CC, the patient opted for DNRCC arrest with no intubation. Patient brother is in agreement Patient doesn't want artificial life support including intubation, tube feed, ventilator and/chest compression, central venous catheter, vasopressor and DC shock if needed Total time spent in [id number]-[id number] encounter in discussion of advanced directive 17 minutes. Laboratory Results 10/09/23 18:30: WBC 7.1, RBC 3.87 L, Hgb 11.5 L, Hct 35.0 L, MCV 90.4, MCH 29.7,MCHC 32.9, RDW Std Deviation 42.6, RDW Coeff of Megan 13.0, Plt Count 210, MPV 9.5, Immature Gran % (Auto) 0.400, Neut % (Auto) 63.1, Lymph % (Auto) 25.4, [place]% (Auto) 7.7, Eos % (Auto) 2.7, Baso % (Auto) 0.7, Absolute Neuts (auto) 4.5, Absolute Lymphs (auto) 1.81, Nucleated RBC % 0, PT 12.4, INR 0.9, APTT 27.0, Sodium 138, Potassium 4.4, Chloride 105, Carbon Dioxide 26.0, Anion Gap 7, BUN 31 H, Creatinine 1.21, Estim Creat Clear Calc 70.42, Est GFR (MDRD) Af Amer 76, Est GFR (MDRD) Non-Af 63, BUN/Creatinine Ratio 25.6 H, Glucose 285 H, Calcium 8.6, Magnesium 2.1, Troponin I High Sens 5 Clinical Impression(s) from Imaging Studies Chest X-Ray 10/09/23 18:40 IMPRESSION: No acute disease Electronically Signed: Odin Villaseñor MD at 18:53 EST Reading Location ID and State: [facility] / [place] Tel , Service support , Charges/Coding Visit Charges Inpatient E&M: 96285 Init Hosp L3 Procedures Hospitalists Procedures: 83097 Advncd Care Plan 30 Min 10/09/232100 <Electronically signed by Gildardo Walton MD> Cosigner Signature (if applicable): CC: Dr. Nadir Grady MD; Dr. Gildardo Walton MD~ Signed [facility] Work Phone: 1(449) 954-258302-08-2024 Discharge summary Author Nicko Rabago [facility] October 09, 2023 8:05pm Note Date/Time October 09, 2023 6 :27pm [facility] Medical Records Department [address] [place] [address] Emergency Department Summary 10/09/23 MR#: [id number] Acct: [id number] Name: MICHAEL BATES Jr. Rep #:[id number] : 1955 68 From: Nicko Rabago MD PCP: Dr. Nadir Grady MD Status:REG ER Location: ED HPI History of Present Illness Chief Complaint: Chest Pain Informant: patient and friend Narrative Narrative: Presents with chest pain. Patient was doing a lot of moving and cleaning out in the garage today. He did have an episode of chest discomfort that went away when he stopped and rested. But he was feeling well. He was then inside sitting still and he got the onset of pain. It is just left of center of his chest. It waxes and wanes but never goes away. It does radiate down his left arm at times. He does feel little short of breath with it. He felt a little lightheaded but not clammy. He may have felt transiently mild nausea. He has a history of heart disease. He has had multiple stents. His last stent was July 22. I did review his chart inportion. 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 He had a stress test that was myocardial perfusion in June 23 that showed no acute process. He has a history of GERD but is not having acid taste. He is taking his Plavix and aspirin ranolazine. He has never had chest pain with his ranolazine before. [facility] Medical History Atherosclerotic heart disease of [place] coronary artery without angina pectoris Bilateral carotid artery stenosis BPH (benign prostatic hyperplasia) COVID-19 (06/2021) DDD (degenerative disc disease) Elevated LFTs Essential (primary) hypertension Hyperlipidemia Sciatica Syncope (10/2021) Tremor of both hands Type 2 diabetes mellitus Home Medications aspirin 81 mg tablet,delayed release 81 mg PO DAILY@0800 heart health 09/13/13 [History Last Taken 02/11/22] omega 8-fvz-vyf-fish oil 1,000 mg (120 mg-180 mg) capsule (Fish Oil) 1,000 mg POQDAY supplement 01/06/18 [History Last Taken 12/29/21] metformin 500 mg tablet,extended release 24 hr 500 mg PO BID 07/25/20 [History Last Taken 02/10/22] lorazepam 0.5 mg tablet 0.5 mg PO BID PRN Anxiety 05/23/22 [History Last Taken Unknown] pioglitazone 30 mg tablet (Actos) 30 mg PO DAILY 06/19/22 [History Last Taken Unknown] ferrous sulfate 325 mg (65 mg iron) tablet 325 mg PO DAILY 06/28/22 [History Last Taken Unknown] pantoprazole 40 mg tablet,delayed release (Protonix) 40 mg PO DAILY #30 tabs 07/16/22 [Rx Last Taken Unknown] nitroglycerin 0.4 mg sublingual tablet 0.4 mg sublingual Q5M PRN Chest Pain #25 tabs 09/03/22 [Rx Last Taken Unknown] fluticasone propionate 50 mcg/actuation nasal spray,suspension 1 spray intranasal BID 10/23/22 [History Last Taken Unknown] ranolazine 500 mg tablet,extended release,12 hr 500 mg PO BID #60 tabs 05/15/23 [Rx Last Taken Unknown] atorvastatin 80 mg tablet 80 mg PO DAILY cholesterol #90 tabs 07/02/23 [Rx Last Taken Unknown] clopidogrel 75 mg tablet (Plavix) 75 mg PO DAILY #90 tabs 07/02/23 [Rx Last Taken Unknown] Allergy/AdvReac Type Severity Reaction Status Date / Time fludrocortisone Allergy Severe ANGIOEDEMA Verified 10/09/23 18:11 [From [facility]] perfume AdvReac Other Verified 10/09/23 18:11 Family History Sister CAD (coronary artery disease) CVA (cerebral vascular accident) Diabetes Myocardial infarction Hx of CABG Mother Cancer Lung [place] Surgical History History of cataract surgery History of coronary artery stent placement (07/23/21) History of hand surgery History of left heart catheterization (02/11/22) History of loop recorder (12/13/21) Hx of appendectomy Social History Smoking Status: Never smoker alcohol intake: never substance use type: does not use caffeine: No what type of physical activity do you participate in: none seatbelt use: always do you feel safe at home: Yes ROS ROS ED ROS Narrative A complete review of systems was performed and is negative except as documented in the history of present illness. Some specific details below. Constitutional: No recent fevers or chills. He was feeling fine until this started. EYE: No discharge, visual complaints, or pain. ENT: No difficulty swallowing. No swelling. No pain. No reflux symptoms. CV: See history of present illness. Respiratory: See history of present illness. Mild dyspnea. No coughing. GI: No abdominal pain. Mild transient nausea but no vomiting or diarrhea. No blood in stool. : No frequency dysuria or hematuria. Musculoskeletal: Patient did fall about 4 days ago. He had a little soreness ofhis left shoulder but he has been working and moving it well. No bruising. Never hit his head. Skin: No rash. Nondiaphoretic. Neuro: No weakness or numbness. Endocrine: No polyuria or polydipsia. EXAM Physical Exam Narrative Exam Narrative: CONSTITUTIONAL: Patient looks mildly uncomfortable. But not toxic. Still carries on normal conversation. Work of breathing is normal. HEENT: No notable trauma. Mucous membranes moist. No sinus tenderness. No indication of pain with swallowing. EYES: No conjunctival injection. No pallor. NECK:No JVD. No stridor. CARDIOVASCULAR: Mildly tachycardic rate. Regular rhythm. No notable murmur. No JVD. No muffled tones and distal pulses are equal. RESPIRATORY: No respiratory distress. Breathing is unlabored. No wheezes. No rhonchi. No rales. No pain with a deep breath. No chest wall tenderness. Oxygen level is normal at 95-96% on room air showing no hypoxia while I am in the room. GASTROINTESTINAL: Not distended. Bowel sounds are normal. No tenderness. No guarding. No rebound. No palpable mass. No bruit is heard. GENITOURINARY: No tenderness over the bladder. No CVA tenderness. MUSCULOSKELETAL: Atraumatic. No peripheral edema. No cord. No tenderness along the deep venous system. No asymmetry. No distended veins. No pallor of extremities. No mottling. NEUROLOGICAL: Patient is alert and appropriate. No focal deficit noted. SKIN: No noted rashes. No diaphoresis at this time. PSYCHIATRIC: Patient is calm. Mood is appropriate. Const Vital Signs: 10/09/23 18:10 10/09/23 18:49 10/09/23 19:02 Temperature 97.4 F L Temperature Source Temporal Pulse Rate 112 H 96 Respiratory Rate 18 Respiratory Effort Normal Non-Labored Blood Pressure 191/81 H 138/73 H Blood Pressure Mean 117 94 Pulse Ox 95 Oxygen Delivery Method Room Air MDM MDM MDM Narrative Medical decision making narrative: My independent interpretation of the patient's single view chest x-ray shows loop recorder but no acute process. Final reading shows no acute disease. Patient's CBC shows minimally low hemoglobin otherwise normal. Patient's electrolytes show no marked abnormalities. His glucose was a bit up at 285. This may be a stress reaction also because of his pain. Patient's magnesium is normal. Patient's first troponin is negative. Because this patient looked very uncomfortable, had subtle lateral new EKG changes, chest pain unrelieved by oral nitroglycerin, I did place him on nitro drip as well as heparin drip. His pain is now gone at 5 mics on nitroglycerin. I discussed the case with Dr. Aris perera for cardiology. I discussed case with hospitalist. Lab Data Attestation: I reviewed the patient's lab results. Labs: Laboratory Results - last 24 hr 10/09/23 18:30 WBC 7.1 RBC 3.87 L Hgb 11.5 L Hct 35.0 L MCV 90.4 MCH 29.7 MCHC 32.9 RDW Std Deviation 42.6 RDW Coeff of Megan 13.0 Plt Count 210 MPV 9.5 Immature Gran % (Auto) 0.400 Neut % (Auto) 63.1 Lymph % (Auto) 25.4 [place] % (Auto) 7.7 Eos % (Auto) 2.7 Baso % (Auto) 0.7 Absolute Neuts (auto) 4.5 Absolute Lymphs (auto) 1.81 Nucleated RBC % 0 PT 12.4 INR 0.9 APTT 27.0 Sodium 138 Potassium 4.4 Chloride 105 Carbon Dioxide 26.0 Anion Gap 7 BUN 31 H Creatinine 1.21 Estim Creat Clear Calc 70.42 Est GFR (MDRD) Af Amer 76 Est GFR (MDRD) Non-Af 63 BUN/Creatinine Ratio 25.6 H Glucose 285 H Calcium 8.6 Magnesium 2.1 Troponin I High Sens 5 Radiography Diagnostic Testing: Clinical Impression(s) from Imaging Studies Chest X-Ray 10/09/23 18:40 IMPRESSION: No acute disease Electronically Signed: Odin Villaseñor MD at 18:53 EST Reading Location ID and State: [facility] Tel , Service support , EKG Initial EKG: Comments: My independent interpretation of the patient's EKG done for chest pain shows a normal sinus rhythm with tachycardic rate at 105. No ventricular ectopy. No indication of acute ST elevation MD. However there is some very mild lateral ST depression that does look a little different than his prior EKG on 20 Jan 2023. There is some baseline variation also. But I believethere is a subtle difference. Management Discussion w/another healthcare provider: Hospitalist and Reliability Manager Discharge Plan Triage Chief Complaint: Chest Pain ED Provider: Nicko Rabago Dx/Rx/DC Orders Clinical Impression: Hx of diabetes insipidus, Angina at rest, Acute electrocardiogram changes, History of CAD (coronary artery disease), Chest pain Prescriptions: No Action omega 0-rak-tup-fish oil [Fish Oil] 1,000 mg (120 mg-180 mg) capsule 1,000 mg PO QDAY Patient Comments: 1200 mg PO QDAY metformin 500 mg tablet extended release 24 hr 500 mg PO BID pantoprazole [Protonix] 40 mg tablet,delayed release (DR/EC) 40 mg PO DAILY Qty: 30 11RF ranolazine 500 mg tablet extended release 12 hr 500 mg PO BID Qty: 60 3RF fluticasone propionate 50 mcg/actuation spray,suspension 1 spray intranasal BID Rx Instructions: administer into each nostril aspirin 81 MG tablet 81 mg PO DAILY@0800 lorazepam 0.5 mg Tablet 0.5 mg PO BID PRN (Reason: Anxiety) pioglitazone [Actos] 30 mg Tablet 30 mg PO DAILY ferrous sulfate 325 mg (65 mg iron) tablet 325 mg PO DAILY nitroglycerin 0.4 mg tablet, sublingual 0.4 mg SUBLINGUAL Q5M PRN (Reason: Chest Pain) Qty: 25 6RF Rx Instructions: take one tablet every 5-15 to not exceed 3 tablets atorvastatin 80 mg tablet 80 mg PO DAILY Qty: 90 3RF Hold Instructions: itching all over, no rash clopidogrel [Plavix] 75 mg tablet 75 mg PO DAILY Qty: 90 3RF Hold Instructions: itching all over, no rash Primary Care Provider: Nadir Grady Referrals: Nadir Grady MD [Primary Care Provider] - Disposition Disposition: Acute Care Hospital [facility] What to do if you have Problems For any increased pain, shortness of breath, bleeding, nausea or vomiting, chestpain, or any unexpected problems, contact your Primary Care Provider. Call [facility] ([phone]) or report to the closest Emergency Room. Call 911 if necessary. 10/09/232004 <Electronically signed by Nicko Rabago MD> Cosigner Signature (if applicable): CC: Dr. Nadir Gardy MD ~ Signed [facility] Work Phone: 1(642) 340-537702-08-2024 Discharge summary Author Nicko Rabago [facility] October 09, 2023 8:05pm Note Date/Time October 09, 2023 6 :27pm [facility] Medical Records Department [address] [place] [address] Emergency Department Summary 10/09/23 MR#: [id number] Acct: [id number] Name: MICHAEL BATES Jr. Rep #:[id number] : 1955 68 From: Nicko Rabago MD PCP: Dr. Nadir Grady MD Status:REG ER Location: ED HPI History of Present Illness Chief Complaint: Chest Pain Informant: patient and friend Narrative Narrative: Presents with chest pain. Patient was doing a lot of moving and cleaning out in the garage today. He did have an episode of chest discomfort that went away when he stopped and rested. But he was feeling well. He was then inside sitting still and he got the onset of pain. It is just left of center of his chest. It waxes and wanes but never goes away. It does radiate down his left arm at times. He does feel little short of breath with it. He felt a little lightheaded but not clammy. He may have felt transiently mild nausea. He has a history of heart disease. He has had multiple stents. His last stent was July 22. I did review his chart inportion. 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 He had a stress test that was myocardial perfusion in June 23 that showed no acute process. He has a history of GERD but is not having acid taste. He is taking his Plavix and aspirin ranolazine. He has never had chest pain with his ranolazine before. [facility] Medical History Atherosclerotic heart disease of [place] coronary artery without angina pectoris Bilateral carotid artery stenosis BPH (benign prostatic hyperplasia) COVID-19 (06/2021) DDD (degenerative disc disease) Elevated LFTs Essential (primary) hypertension Hyperlipidemia Sciatica Syncope (10/2021) Tremor of both hands Type 2 diabetes mellitus Home Medications aspirin 81 mg tablet,delayed release 81 mg PO DAILY@0800 heart [facility] 09/13/13 [History Last Taken 02/11/22] omega 5-kqn-lve-fish oil 1,000 mg (120 mg-180 mg) capsule (Fish Oil) 1,000 mg POQDAY supplement 01/06/18 [History Last Taken 12/29/21] metformin 500 mg tablet,extended release 24 hr 500 mg PO BID 07/25/20 [History Last Taken 02/10/22] lorazepam 0.5 mg tablet 0.5 mg PO BID PRN Anxiety 05/23/22 [History Last Taken Unknown] pioglitazone 30 mg tablet (Actos) 30 mg PO DAILY 06/19/22 [History Last Taken Unknown] ferrous sulfate 325 mg (65 mg iron) tablet 325 mg PO DAILY 06/28/22 [History Last Taken Unknown] pantoprazole 40 mg tablet,delayed release (Protonix) 40 mg PO DAILY #30 tabs 07/16/22 [Rx Last Taken Unknown] nitroglycerin 0.4 mg sublingual tablet 0.4 mg sublingual Q5M PRN Chest Pain #25 tabs 09/03/22 [Rx Last Taken Unknown] fluticasone propionate 50 mcg/actuation nasal spray,suspension 1 spray intranasal BID 10/23/22 [History Last Taken Unknown] ranolazine 500 mg tablet,extended release,12 hr 500 mg PO BID #60 tabs 05/15/23 [Rx Last Taken Unknown] atorvastatin 80 mg tablet 80 mg PO DAILY cholesterol #90 tabs 07/02/23 [Rx Last Taken Unknown] clopidogrel 75 mg tablet (Plavix) 75 mg PO DAILY #90 tabs 07/02/23 [Rx Last Taken Unknown] Allergy/AdvReac Type Severity Reaction Status Date / Time fludrocortisone Allergy Severe ANGIOEDEMA Verified 10/09/23 18:11 [From [facility]] perfume AdvReac Other Verified 10/09/23 18:11 Family History Sister CAD (coronary artery disease) CVA (cerebral vascular accident) Diabetes Myocardial infarction Hx of CABG Mother Cancer Lung CA Surgical History History of cataract surgery History of coronary artery stent placement (07/23/21) History of hand surgery History of left heart catheterization (02/11/22) History of loop recorder (12/13/21) Hx of appendectomy Social History Smoking Status: Never smoker alcohol intake: never substance use type: does not use caffeine: No what type of physical activity do you participate in: none seatbelt use: always do you feel safe at home: Yes ROS ROS ED ROS Narrative A complete review of systems was performed and is negative except as documented in the history of present illness. Some specific details below. Constitutional: No recent fevers or chills. He was feeling fine until this started. EYE: No discharge, visual complaints, or pain. ENT: No difficulty swallowing. No swelling. No pain. No reflux symptoms. CV: See history of present illness. Respiratory: See history of present illness. Mild dyspnea. No coughing. GI: No abdominal pain. Mild transient nausea but no vomiting or diarrhea. No blood in stool. : No frequency dysuria or hematuria. Musculoskeletal: Patient did fall about 4 days ago. He had a little soreness ofhis left shoulder but he has been working and moving it well. No bruising. Never hit his head. Skin: No rash. Nondiaphoretic. Neuro: No weakness or numbness. Endocrine: No polyuria or polydipsia. EXAM Physical Exam Narrative Exam Narrative: CONSTITUTIONAL: Patient looks mildly uncomfortable. But not toxic. Still carries on normal conversation. Work of breathing is normal. HEENT: No notable trauma. Mucous membranes moist. No sinus tenderness. No indication of pain with swallowing. EYES: No conjunctival injection. No pallor. NECK:No JVD. No stridor. CARDIOVASCULAR: Mildly tachycardic rate. Regular rhythm. No notable murmur. No JVD. No muffled tones and distal pulses are equal. RESPIRATORY: No respiratory distress. Breathing is unlabored. No wheezes. No rhonchi. No rales. No pain with a deep breath. No chest wall tenderness. Oxygen level is normal at 95-96% on room air showing no hypoxia while I am in the room. GASTROINTESTINAL: Not distended. Bowel sounds are normal. No tenderness. No guarding. No rebound. No palpable mass. No bruit is heard. GENITOURINARY: No tenderness over the bladder. No CVA tenderness. MUSCULOSKELETAL: Atraumatic. No peripheral edema. No cord. No tenderness along the deep venous system. No asymmetry. No distended veins. No pallor of extremities. No mottling. NEUROLOGICAL: Patient is alert and appropriate. No focal deficit noted. SKIN: No noted rashes. No diaphoresis at this time. PSYCHIATRIC: Patient is calm. Mood is appropriate. Const Vital Signs: 10/09/23 18:10 10/09/23 18:49 10/09/23 19:02 Temperature 97.4 F L Temperature Source Temporal Pulse Rate 112 H 96 Respiratory Rate 18 Respiratory Effort Normal Non-Labored Blood Pressure 191/81 H 138/73 H Blood Pressure Mean 117 94 Pulse Ox 95 Oxygen Delivery Method Room Air MDM MDM MDM Narrative Medical decision making narrative: My independent interpretation of the patient's single view chest x-ray shows loop recorder but no acute process. Final reading shows no acute disease. Patient's CBC shows minimally low hemoglobin otherwise normal. Patient's electrolytes show no marked abnormalities. His glucose was a bit up at 285. This may be a stress reaction also because of his pain. Patient's magnesium is normal. Patient's first troponin is negative. Because this patient looked very uncomfortable, had subtle lateral new EKG changes, chest pain unrelieved by oral nitroglycerin, I did place him on nitro drip as well as heparin drip. His pain is now gone at 5 mics on nitroglycerin. I discussed the case with Dr. Aris perera for cardiology. I discussed case with hospitalist. Lab Data Attestation: I reviewed the patient's lab results. Labs: Laboratory Results - last 24 hr 10/09/23 18:30 WBC 7.1 RBC 3.87 L Hgb 11.5 L Hct 35.0 L MCV 90.4 MCH 29.7 MCHC 32.9 RDW Std Deviation 42.6 RDW Coeff of Megan 13.0 Plt Count 210 MPV 9.5 Immature Gran % (Auto) 0.400 Neut % (Auto) 63.1 Lymph % (Auto) 25.4 [place] % (Auto) 7.7 Eos % (Auto) 2.7 Baso % (Auto) 0.7 Absolute Neuts (auto) 4.5 Absolute Lymphs (auto) 1.81 Nucleated RBC % 0 PT 12.4 INR 0.9 APTT 27.0 Sodium 138 Potassium 4.4 Chloride 105 Carbon Dioxide 26.0 Anion Gap 7 BUN 31 H Creatinine 1.21 Estim Creat Clear Calc 70.42 Est GFR (MDRD) Af Amer 76 Est GFR (MDRD) Non-Af 63 BUN/Creatinine Ratio 25.6 H Glucose 285 H Calcium 8.6 Magnesium 2.1 Troponin I High Sens 5 Radiography Diagnostic Testing: Clinical Impression(s) from Imaging Studies Chest X-Ray 10/09/23 18:40 IMPRESSION: No acute disease Electronically Signed: Odin Villaseñor MD at 18:53 EST , EKG Initial EKG: Comments: My independent interpretation of the patient's EKG done for chest pain shows a normal sinus rhythm with tachycardic rate at 105. No ventricular ectopy. No indication of acute ST elevation MD. However there is some very mild lateral ST depression that does look a little different than his prior EKG on 20 Jan 2023. There is some baseline variation also. But I believethere is a subtle difference. Management Discussion w/another healthcare provider: Hospitalist and Reliability Manager Discharge Plan Triage Chief Complaint: Chest Pain ED Provider: Nicko Rabago Dx/Rx/DC Orders Clinical Impression: Hx of diabetes insipidus, Angina at rest, Acute electrocardiogram changes, History of CAD (coronary artery disease), Chest pain Prescriptions: No Action omega 0-zwe-ekr-fish oil [Fish Oil] 1,000 mg (120 mg-180 mg) capsule 1,000 mg PO QDAY Patient Comments: 1200 mg PO QDAY metformin 500 mg tablet extended release 24 hr 500 mg PO BID pantoprazole [Protonix] 40 mg tablet,delayed release (DR/EC) 40 mg PO DAILY Qty: 30 11RF ranolazine 500 mg tablet extended release 12 hr 500 mg PO BID Qty: 60 3RF fluticasone propionate 50 mcg/actuation spray,suspension 1 spray intranasal BID Rx Instructions: administer into each nostril aspirin 81 MG tablet 81 mg PO DAILY@0800 lorazepam 0.5 mg Tablet 0.5 mg PO BID PRN (Reason: Anxiety) pioglitazone [Actos] 30 mg Tablet 30 mg PO DAILY ferrous sulfate 325 mg (65 mg iron) tablet 325 mg PO DAILY nitroglycerin 0.4 mg tablet, sublingual 0.4 mg SUBLINGUAL Q5M PRN (Reason: Chest Pain) Qty: 25 6RF Rx Instructions: take one tablet every 5-15 to not exceed 3 tablets atorvastatin 80 mg tablet 80 mg PO DAILY Qty: 90 3RF Hold Instructions: itching all over, no rash clopidogrel [Plavix] 75 mg tablet 75 mg PO DAILY Qty: 90 3RF Hold Instructions: itching all over, no rash Primary Care Provider: Nadir Grady Referrals: Nadir Grady MD [Primary Care Provider] - Disposition Disposition: Acute Care Hospital [facility] What to do if you have Problems For any increased pain, shortness of breath, bleeding, nausea or vomiting, chestpain, or any unexpected problems, contact your Primary Care Provider. Call [facility] ([phone]) or report to the closest Emergency Room. Call 911 if necessary. 10/09/232004 <Electronically signed by Nicko Rabago MD> Cosigner Signature (if applicable): CC: Dr. 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, 2023 chronic Bilateral carotid artery stenosis chronic Hypotension chronic Syncope October, [facility] Work Phone: 1(367) 207-711002-01-2024 Evaluation note* Diagnosis Onset Date Resolution Status Acute electrocardiogram changes resolved Angina at rest resolved Chest pain resolved Unstable angina resolved 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, 2023 chronic Bilateral carotid artery stenosis chronic Hypotension chronic Syncope October, chronic Chest pain acute Chest pain, atypical acute Essential (primary) hypertension [facility] Work Phone: 1(393) 511-921202-01-2024 Evaluation note* Diagnosis Onset Date Resolution Status Acute electrocardiogram changes resolved Angina at rest resolved Chest pain resolved Unstable angina resolved 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 Karla Wadsworth MA * Telephone Encounter - Yolanda Brower - 06/26/2023 9:44 AM EDT Patient has been identified by name and date of : Yes, Provider Nadir Grady Date 06/26/23 Time 9:45 Patient phones for refill(s): Requested Prescriptions Pending Prescriptions Disp Refills clopidogrel (PLAVIX) 75 mg tablet 30 tablet 11 Sig: Take 1 tablet by mouth once daily. Managed by [facility] Date of last office visit in primary care: 06/17/2023 Date of next office visit in primary care: Visit date not found Last 2 Encounter Wt Readings: Date: Wt: 06/26/2023 84.5 kg (186 lb 3.2 oz) 06/17/2023 85.7 kg (189 lb) Previous labs/tests for medication: Not applicable Please advise. Thank you. Yolanda Brower. documented in this encounterOhio [facility]10-26-2023 Miscellaneous Notes* Telephone Encounter - Jennifer Blue RN - 06/26/2023 2:59 PM EDT Pt called and is notified of providers message and instructions. Pt voices understanding. Jennifer Blue RN * Telephone Encounter - Nadir Grady MD - 06/26/2023 2:52 PM EDT Let patient know script for Augmentin sent in for 7 day of Tx. The following approved medication requests have been transmitted electronically. Requested Prescriptions Signed Prescriptions Disp Refills amoxicillin-clavulanate potassium (AUGMENTIN) 875-125 mg per tablet 14 tablet 0 Sig: Take 1 tablet by mouth two times a day for 7 days. Authorizing Provider: NADIR GRADY MD * Telephone Encounter - Karla Wadsworth MA - 06/26/2023 10:13 AM EDT Patient was seen by Franny on 06/17/2023 for chest and head congestion x 1 week was given augmentin. Contacted patient and he indicated still having cough; sinus congestion; no fever; says his chest hurts but probably from coughing. Noticing SOB. Patient was seen yesterday in and was treated for Thrush. Karla Wadsworth MA * Telephone Encounter - Yolanda Brower - 06/26/2023 9:48 AM EDT Patient request refill on 125mg Augmentin, please advise documented in this encounterOhio State [facility]10-26-2023 History of Present illness Narrative* Fer Merrill APRN.MIGEL - 06/26/2023 9:40 AM EDT Images from the original note [...] lumbar 06/30/2016 Multi level, worse L2-L3 Diabetes ([facility]) Diabetic eye exam ([facility]) 03/19/2017 Last done: 10/01/2018 Elevated [...] Date 2D ECHO (EXEP) 01/16/2017 EF=60%, 1+ MD and TI CATARACT EXTRACTION HX Left 10/2019 [...] tablet by mouth once daily. Managed by [facility] omega-3 fatty acids 1,000 mg cap Take 2 capsules by mouth once daily. aspirin, enteric coated (ECOTRIN LOW STRENGTH) 81 mg EC tablet Take 1 tablet by mouth once daily. Blood Pressure Monitor kit 1 Each once daily. Blood Glucose Control High and Low (ACCU-CHEK MEGHANA CONTROL SOLN) soln Use as directed as indicatedto check quality of test strips nystatin (MYCOSTATIN) 100,000 unit/mL suspension Take 5 mL by mouth four times daily. 1tsp swish inmouth for several minutes, then swallow (or expectorate) [...] and atraumatic. Nose: Nose normal. Mouth/Throat: Lips: [place]. Mouth: Mucous membranes are moist. Pulmonary: Effort: [...] NYSTATIN 100,000 UNIT/ML ORAL SUSPENSION Fer Merrill APRN.CNP documented in this encounterOhio State University [facility]10-19-2023 History of Present illness Narrative* Odin Reyes MD - 06/19/2023 12:32 PM EDT Express Care Triage Note: [facility] with complaint of sinus pain and shortness of breath. He is a little worse than when seen and treated by Family Medicine 2 days ago. The patient was triaged and determined that he could be further evaluated in the [facility] Care, but he left before being roomed. documented in this encounterOhio State University [facility]10-19-2023 Miscellaneous Notes* Telephone Encounter - Meg Miller Cma - 06/19/2023 9:28 AM EDT Patient notified and verbalized understanding Meg Miller Cma * Telephone Encounter - Franny Catalan APRN.CNP - 06/19/2023 9:02 AM EDT Please let patient know his labs show improvement in his hgb a1c and the rest of his labs are stable. documented in this encounterOhio State University [facility]09-15-2023 History of Present illness Narrative* Luis E Agudelo LPN - 05/16/2023 9:06 AM EDT Scan on 05/15/2023 9:35 AM by Provider, HOANG Head: Consultation - Cardiology documented in this encounterOhio State University [facility]08-04-2023 Miscellaneous Notes* Telephone Encounter - Daniella Whiteside LPN - 04/04/2023 6:36 PM EDT Patient notified.Daniella Whiteside LPN * Telephone Encounter - Fer Merrill APRN.CNP - 04/04/2023 6:12 PM EDT Please notify that testing showed no fungus at 3 days. Will call if becomes positive. documented in this encounterOhio State University [facility]08-03-2023 Miscellaneous Notes* Telephone Encounter - Hodan Menard MA - 04/03/2023 7:16 AM EDT Pt was notified of the results. Pt verbalized understanding. Hodan Menard MA * Telephone Encounter - Ruthann Wadsworth APRN.CNP - 04/02/2023 7:52 PM EDT No fungal growth after 1 day will continue to grow culture and if anything comes back positive we will call patient. documented in this encounterOhio State [facility]08-01-2023 Miscellaneous Notes* Telephone Encounter - Geno Perez Ma - 04/01/2023 1:22 PM EDT Last office visit: 11/28/22 F/u scheduled: 06/04/23 Geno Perez Ma * Telephone Encounter - Tato Isidro - 04/01/2023 12:36 PM EDT Patient has been identified by name and [...] and advise. Tato Isidro documented in this encounterOhio State University [facility]08-01-2023 History of Present illness Narrative* Blanca Lee PA-C - 04/01/2023 8:01 AM EDT This note was created using [employer]. Subjective Michael Bates is a 68 year [...] tongue. Has a history of angioedema to [facility]. Not on any PANFILO inhibitors. He did start taking an [id number] zinc supplement 3 weeks ago. He had [...] lumbar 06/30/2016 Multi level, worse L2-L3 Diabetes ([facility]) Diabetic eye exam ([facility]) 03/19/2017 Last done: 10/01/2018 Elevated [...] by mouth twice daily with meals. 60 tablet1 pioglitazone (ACTOS) 45 mg tablet Take 1 [...] SPRAYS IN EACH NOSTRIL ONCE DAILY 16 g11 nitroglycerin sublingual (NITROSTAT) 0.4 mg SL tablet Dissolve 1 tablet under the tongue every 5 minutes as needed for chest pain. 1 Bottle of 25 1 atorvastatin (LIPITOR) 80 mg tablet Take 1 tablet by mouth once daily. Managed by cardiology, Dr. Kern 30 tablet 11 clopidogrel (PLAVIX) 75 mg tablet Take 1 tablet by mouth once daily. Managed by [facility]30 tablet 11 omega-3 fatty acids 1,000 mg [...] CONTROL SOLN) soln Use as directed as indicatedto check quality of test strips 1 Each 0 nystatin (MYCOSTATIN) 100,000 unit/mL suspension Take 5 mL by mouth four times daily. 1tsp swish inmouth for several minutes, then swallow (or expectorate) 4 times daily until gone. 200 mL 0 fluconazole (DIFLUCAN) 150 mg tablet Take 1 tablet by mouth once daily for 1 day. 1 tablet 0 No current facility-administered medications for this visit. PAST SURGICAL HISTORY Procedure Laterality Date 2D ECHO (EXEP) 01/16/2017 EF=60%, 1+ MD and TI CATARACT EXTRACTION HX Left 10/2019 [...] right upper and lower lip extending to thebuccal mucosa of the right side of the [...] in the emergency department. Follow-up with PCP asneeded. - FUNGAL CULTURE Blanca Lee PA-C documented in this encounterOhio State University [facility]07-10-2023 Instructions* Patient Instructions* Ute Shine APRN.CNP - 03/10/2023 12:56 PM EDT Start Triamcinolone 0.1% ointment twice daily for itch May use OTC benadryl or zyrtec as needed for itching Keep rash clean and dry. Allow to dry out. documented in this encounterOhio State University [facility]07-10-2023 History of Present illness Narrative* Ute Shine APRN.CNP - 03/10/2023 12:43 PM EDT Images from the original note were not included. Subjective The history is provided by the patient. No professional services specialist was used. HPI Michael Bates is [...] lumbar 06/30/2016 Multi level, worse L2-L3 Diabetes ([facility]) Diabetic eye exam ([facility]) 03/19/2017 Last done: 10/01/2018 Elevated [...] have confirmed and edited as necessary, the [facility] Review of Systems Constitutional: Negative [...] for higher level of care were discussed indetail warranting prompt ER evaluation. Ute Shine APRN.MIGEL documented in this encounterOhio State University [facility]06-26-2023 Miscellaneous Notes* Telephone Encounter - Luis E Agudelo LPN - 02/24/2023 12:21 PM EDT Pt notified of same, verbalizes understanding. Luis E Agudelo LPN * Telephone Encounter - Martha Boston PA-C - 02/24/2023 11:16 AM EDT Refill sent. Let patient know that his previous requests never were routed to us correctly. We apologize. * Telephone Encounter - Luis E Agudelo LPN - 02/24/2023 11:10 AM EDT Please let pt know when refilled. Last refill listed as historical med HANNA 11/28/22 NOV 06/04/23 Luis E Agudelo LPN documented in this encounterOhio State University [facility]06-06-2023 Miscellaneous Notes* Telephone Encounter - Lisa Rabago - 02/04/2023 9:13 AM EDT This is being handled in another telephone call. See other message regarding this. Closing this note. Lisa Rabago * Telephone Encounter - Charissa Mitchell - 02/04/2023 9:10 AM EDT Patient came in to refill lorazepam. Unable to refill please review and advise patient regarding prescription. * Telephone Encounter - Charissa Mitchell - 02/04/2023 9:09 AM EDT Patient came in wanting to refill Lorazepam $ documented in this encounterOhio State University [facility]05-09-2023 Miscellaneous Notes* Telephone Encounter - Luis E Agudelo LPN - 01/07/2023 2:22 PM EDT Last refill Actos 11/29/22 Qty: 90 with 1 refill Last refill Iron 11/05/22 Qty: 60 with 1 refill Last refill Metformin 06/19/22 Qty: 360 with 1 refill HANNA 11/28/22 NOV 06/04/23 Luis E Agudelo LPN * Telephone Encounter - JASE Jin - 01/07/2023 1:58 PM EDT Patient has been identified by name and date of : Yes Last office visit in this department: Visit date not found RX INSTRUCTIONS: Patient aware RX will be sent to pharmacy. No need to notify patient. Patient phones requesting refills as follows: Requested Prescriptions No prescriptions requested or ordered in this encounter Please review and advise. JASE Jin documented in this encounterOhio State University [facility]03-31-2023 Miscellaneous Notes* Telephone Encounter - Martha Boston PA-C - 11/29/2022 12:22 PM EDT The following approved medication requests have been transmitted electronically. Requested Prescriptions Signed Prescriptions Disp Refills pioglitazone (ACTOS) 45 mg tablet 90 tablet 1 Sig: Take 1 tablet by mouth once daily. Authorizing Provider: MARTHA BOSTON PA-C * Telephone Encounter - CALLIE Rodriguez - 11/29/2022 11:10 AM EDT TC to patient who verbalizes understanding of providers message. Patient agreeable to increasing Actos to 45mg. Prefers [facility] in [place]. Please advise. Thank you. CALLIE Rodriguez * Telephone Encounter - Martha Boston PA-C - 11/29/2022 11:02 AM EDT Let patient know that his a1c is 7.7%. I would like to see this under 7.5%. is he willing to increase actos to 45mg? His cholesterol was normal. PSA level is a little elevated. Recheck in 1 month. Blood counts are stable. documented in this encounterOhio State [facility]03-30-2023 History of Present illness Narrative* Martha Boston PA-C - 11/28/2022 12:43 PM EDT Medicare Yearly Visit Medical B eligibilty date [...] Date 2D ECHO (EXEP) 01/16/2017 EF=60%, 1+ MD and TI CATARACT EXTRACTION HX Left 10/2019 [...] F) Resp 16 Ht 175 cm (5' 8.9) Wt 78.5 kg (173 lb) BMI 25.62 [...] Date 2D ECHO (EXEP) 01/16/2017 EF=60%, 1+ MD and TI CATARACT EXTRACTION HX Left 10/2019 [...] tablet by mouth once daily. Managed by [facility] omega-3 fatty acids 1,000 mg cap Take 2 capsules by mouth once daily. aspirin, enteric coated (ECOTRIN LOW STRENGTH) 81 mg EC tablet Take 1 tablet by mouth once daily. Blood Pressure Monitor kit 1 Each once daily. Blood Glucose Control High and Low (ACCU-CHEK MEGHANA CONTROL SOLN) soln Use as directed as indicatedto check quality of test strips pyridostigmine (MESTINON) [...] F) Resp 16 Ht 175 cm (5' 8.9) Wt 78.5 kg (173 lb) BMI 25.62 [...] which included preparing to see the patient, [id number] patient care, completing clinical documentation, obtaining and/or reviewing separately obtained history, performing a medically appropriate examination, counseling and educating the pat ient/family/caregiver, ordering medications, tests, or procedures, communicating with other HCPs (not separately reported), and communicating results to the patient/family/caregiver. documented in this encounterOhio State University [facility]03-23-2023 Instructions* Patient Instructions* Jenna Jim APRN.CNP - 11/21/2022 10:11 AM EDT Gabapentin Week one: 300mg in morning and 600mg at night Week two : 300mg twice daily Week three: 300mg once daily Week four: 300mg every other day Week five: stop medication *If at any point during taper pain should worsen, stop tapering schedule and continue current dose (at that time) of gabapentin. documented in this encounterOhio State University [facility]03-23-2023 History of Present illness Narrative* Jenna Jim APRN.CNP - 11/21/2022 10:00 AM EDT Images from the original note were not included. [facility] [place] Follow-up Visit Follow-up note November 21, 2022 [...] been DC'd). Discussed that we can trial smalldecrease in gabapentin dose to determine if there is any affect on BP, however, must consider that head and neck pain may worsen with decrease in medication. He would like to attempt to decrease doseand will decrease to 600mg BID. New prescription [...] to 11/21/22 pt has maintained BP in 80's- 90's/50's with one outlier orf 79/39. Checks consistently [...] Date 2D ECHO (EXEP) 01/16/2017 EF=60%, 1+ MD and TI CATARACT EXTRACTION HX Left 10/2019 [...] dysplasia, repeat in 2 years EGD [facility] SPEC VARICIES INJ 10/14/2022 FECAL OCCULT BLOOD [...] tablet by mouth once daily. Managed by [facility] omega-3 fatty acids 1,000 mg cap Take 2 capsules by mouth once daily. aspirin, enteric coated (ECOTRIN LOW STRENGTH) 81 mg EC tablet Take 1 tablet by mouth once daily. Blood Pressure Monitor kit 1 Each once daily. Blood Glucose Control High and Low (ACCU-CHEK MEGHANA CONTROL SOLN) soln Use as directed as indicatedto check quality of test strips No current [...] mildly off balance. Retropulsion on pull test. LEBRON of pronation and supination, finger and hand tapping intact. Toe tapping intact. Mild rigidity to BUE, bradykinesia. No tremors. Rises from chair without using arms Labs/studies: Cardiac Cath 02/11/22: CT Brain Report CT BRAIN WO IVCON Exam End: 04/05/2022 2:00 PM (Final result) Narrative: * * *Final Report* * * DATE OF EXAM: Apr 05 2022 2:00PM [facility] 0504 - CT BRAIN WO IVCON [...] base and imaged soft tissues are unremarkable. Clinical Cytogeneticist (topogram) images: No acute findings Impression: IMPRESSION: No significant change. No acute intracranial process Letter Sorting Machine Operator: [facility] Transcribe Date/Time: Apr 05 2022 2:06P Dictated [...] carotid arteries bilaterally. Normal visualized paranasal sinuses. IMPRESSION: Normal unenhanced [...] height and morphology. Normal central canal and intervertebralneuroforamina. Normal visualized soft tissue structures. IMPRESSION: Normal unenhanced CT examination of the [...] of previous appointment gabapentin dose was decreased [id number] BID to determine if there was a [...] pain, he will stop the taper and continueat current dose of gabapentin. In addition, he was started on pyridostigmine 60mg QHS with goal of 60mg BID. Today he reports he is currently only taking evening dose. Orthostatic VS obtained in office and WNL, however, he reports occasional dizziness still occurring and presents with log of low BPreadings at home. Will increase dose to BID. Pt will monitor for SE as well as continue to keep logof BP readings. He will notify the office if SE or BP concerns occur. Follow up in three months or sooner as needed for medication and symptom review. Jenna Jim APRN.MIGEL I spent a total of 30 minutes on the date of the service which included preparing to see the patient, [id number] patient care, completing clinical documentation, obtaining and/or reviewing separately obtained history, performing a medically appropriate examination, counseling and educating the pat ient/family/caregiver, and ordering medications, tests, or procedures. documented in this encounterOhio State University [facility]03-16-2023 Miscellaneous Notes* Telephone Encounter - Tana Armas Pss - 11/14/2022 12:[address] consult for [facility].. * Telephone Encounter - CALLIE Rodriguez - 11/08/2022 9:41 AM EST In provider review of patient appointment, patient needs to be re-scheduled with the [facility]. Pt has been seen by three general neurologists and due to the overall concerns, provider believes center [facility] will be more beneficial to patient. TC to patient who is advised of the above and is agreeable to see brain [facility]. Please contact patient and assist with scheduling with [facility]. Thank you. CALLIE Rodriguez documented in this encounterOhio State University [facility]03-14-2023 History of Present illness Narrative* Fer Merrill APRN.CERTIFIED ANESTHESIOLOGIST ASSISTANT - 11/12/2022 11:44 AM EDT Subjective HPI HPI Michael Bates is a 67 year old male who presents today for CC of itchy rash. This started 1 month ago. Has tried otc medication without relief. Symptoms are worsened by nothing. Risk factorswas into a tree that was covered in [...] lumbar 06/30/2016 Multi level, worse L2-L3 Diabetes ([facility]) Diabetic eye exam ([facility]) 03/19/2017 Last done: 10/01/2018 Elevated [...] Date 2D ECHO (EXEP) 01/16/2017 EF=60%, 1+ MD and TI CATARACT EXTRACTION HX Left 10/2019 [...] tablet by mouth once daily. Managed by [facility] omega-3 fatty acids 1,000 mg cap Take 2 capsules by mouth once daily. aspirin, enteric coated (ECOTRIN LOW STRENGTH) 81 mg EC tablet Take 1 tablet by mouth once daily. Blood Pressure Monitor kit 1 Each once daily. Blood Glucose Control High and Low (ACCU-CHEK MEGHANA CONTROL SOLN) soln Use as directed as indicatedto check quality of test strips triamcinolone acetonide [...] TABLETS IN A DOSE PACK Fer Merrill APRN.MIGEL documented in this encounterOhio State University [facility]03-07-2023 Miscellaneous Notes* Telephone Encounter - Beverly Rawls RN - 11/05/2022 9:55 AM EST Last Office Visit: 10/24/2022 Future Office Visit: 11/19/2022 Requested Prescriptions Pending Prescriptions Disp Refills ferrous sulfate 325 mg (65 mg iron) tablet 60 tablet 1 Sig: Take 1 tablet by mouth twice daily with meals. Date of Last Labs: 08/21/2022 documented in this encounterOhio State University [facility]02-28-2023 Instructions* Patient Instructions* Jennifer Pavon PA-C - 10/29/2022 4:38 PM EST -Continue PPI long-term -Repeat EGD in 2 years for surveillance The following instructions are important for you related to your office visit today with the [facility] General Surgeons. INSTRUCTIONS FOLLOWING A NORMAL COLONOSCOPY 10YR I discussed with you the findings of your colonoscopy. Since there were no worrisome abnormalities,I recommend you undergo repeat endoscopic screening every [...] epigastric pain, burning, difficulty swallowing or food stickingshould be relayed to your physician. Feeling full early after eating, or black, tarry, foul smelling stools are also worrisome. If you have any difficulties or concerns, you should contact our office immediately. If you note any additional difficulties, questions, or concerns, you should contact our office immediately @ [phone] and ask to be transferred to the General Surgery department. documented in this encounterOhio State University [facility] Center02-28-2023 History of Present illness Narrative* Jennifer Pavon PA-C - 10/29/2022 3:59 PM EST FOLLOW UP VISIT - ENDOSCOPY NAME: Michael Pagan [facility] NO.: [id number] DATE OF SERVICE: 10/29/2022 : 1955 REFERRING PHYSICIAN: Nadir Grady MD Michael is a patient I am following with Dr. Santiago for anemia, weight loss, acid reflux. Dr. Santiago performed upper and lower endoscopy on 10/14/22. The patient was found to have diverticulosis withotherwise normal colonoscopy. EGD showed a small hiatal [...] in one cassette. Gross examination performed at [facility], [facility] [place] [address] JT 10/14/2022 8:25 PM Performing Lab Diagnostic interpretation performed at [facility], [facility] [address] CLIA# [id number] Rn Diabetes Educator: Olayinka Paz M.D. Addendum Addendum is issued to reflect the result of immunohistochemical stain: - Immunostain for H. pylori is negative in part A. The patient notes no complaints since the procedure. VITALS: Blood pressure 124/64, pulse 82, temperature 36.6 C (97.9 F), height 177.8 cm (5' 10), weight 81.2 kg (179 lb), SpO2 96 %. General: patient is alert, cooperative, pleasant and in no acute distress On examination, the abdomen is benign. Assessment IMPRESSION: long-segment Santos's without dysplasia, hiatal hernia, diverticulosis PLAN: The operative findings and pathology report were reviewed with the patient, and the patient has hadthe opportunity to ask questions and have questions [...] which included preparing to see the patient, [id number] patient care, completing clinical documentation, obtaining and/or reviewing separately obtained history, counseling and educating the patient/family/caregiver, independently interpretin g results (not separately reported), and communicating results to the patient/family/caregiver. Jennifer Pavon PA-C documented in this encounterOhio State University [facility]02-22-2023 History of Present illness Narrative* Karla Wadsworth MA - 10/23/2022 4:25 PM EST Scan on 10/23/2022 10:26 AM by External Provider: Consultation - Cardiology Please review. Karla Wadsworth MA documented in this encounterOhio State University [facility]02-13-2023 History and physical note * Thai Santiago MD - 10/14/2022 12:15 PM EST Images from the original note were not [...] Date 2D ECHO (EXEP) 01/16/2017 EF=60%, 1+ MD and TI CATARACT EXTRACTION HX Left 10/2019 [...] tablet by mouth once daily. Managed by [facility] omega-3 fatty acids 1,000 mg cap Take 2 capsules by mouth once daily. aspirin, enteric coated (ECOTRIN LOW STRENGTH) 81 mg EC tablet Take 1 tablet by mouth once daily. Blood Pressure Monitor kit 1 Each once daily. Blood Glucose Control High and Low (ACCU-CHEK MEGHANA CONTROL SOLN) soln Use as directed as indicatedto check quality of test strips sertraline (ZOLOFT) 50 mg tablet Take 1 tablet by mouth once daily. (Patient not taking: Reported on 06/27/2022) amantadine HCl (SYMMETREL) 100 mg capsule Take 1 capsule by mouth twice daily. (Patient not taking:Reported on 06/27/2022) No current facility-administered medications for [...] entered by the nurse and reviewed by sc Nursing Notes: Yovanny Thacker LPN 06/27/2022 9:31 AM Signed REVIEW [...] last Mammogram screening? N/A Last Colonoscopy: none Yovanny Thacker LPN PHYSICAL EXAMINATION: General: The patient is 67 year old male, well nourished, well hydrated in no acute distress. The patient is oriented to time, place, and person. VITALS: Blood pressure 110/62, pulse 80, temperature 36.3 C (97.4 F), height 177.8 cm (5' 10), weight 71.7 kg (158 lb), SpO2 97 %. Body mass index is 22.67 kg/m . HEENT: Normal cephalic, ataumatic, pupils are equally round, sclera are anicteric, mucous membranesare moist, oropharynx is clear. Neck has no [...] that complications can occur including failure to completethe endoscopy and perforation. The patient had the [...] completed. Thai Santiago MD documented in this encounterOhio State University [facility]02-04-2023 History of Present illness Narrative* Nadir Grady MD - 10/05/2022 11:28 AM EST Chief Complaint Patient presents with: Follow Up: [...] per cardio his FBS have ranged 130's-160. [place] hrs post meals have been in the [...] lumbar 06/30/2016 Multi level, worse L2-L3 Diabetes ([facility]) Diabetic eye exam ([facility]) 03/19/2017 Last done: 10/01/2018 Elevated [...] Date 2D ECHO (EXEP) 01/16/2017 EF=60%, 1+ MD and TI CATARACT EXTRACTION HX Left 10/2019 [...] tablet by mouth once daily. Managed by [facility] omega-3 fatty acids 1,000 mg [...] CONTROL SOLN) soln Use as directed as indicatedto check quality of test strips No current [...] get FBS below 120. Advised if the prednisoneis stopped to monitor his FBS's and if [...] issues. Nadir Grady MD documented in this encounterOhio State University [facility]02-01-2023 Miscellaneous Notes* Telephone Encounter - Nadir Grady MD - 10/02/2022 9:29 AM EST The following approved medication requests have been transmitted electronically. Requested Prescriptions Signed Prescriptions Disp Refills pioglitazone (ACTOS) 30 mg tablet 90 tablet 1 Sig: Take 1 tablet by mouth once daily. Authorizing Provider: NADIR GRADY MD * Telephone Encounter - Abdirahman Duong RN - 10/02/2022 9:22 AM EST Brannon- [facility] reports she informed patient and sister, patient was instructed by pcp to hold amaryl, but he is suppose to keep taking actos. Reports they did not believe him. Brannon asked this nurse to call patient and let him know doctor does want him to take actos. This nurse phoned patient and advised him doctor wanted him to hold his amaryl but keep taking the actos. Patient agreeable and states he will need a new Rx for actos sent to [facility]. Pended. documented in this encounterOhio State University [facility]01-24-2023 Miscellaneous Notes* Telephone Encounter - Jennifer Blue RN - 09/24/2022 10:50 AM EST Brannon Clayton-[facility] called and is notified of providers message and instructions. She voices understanding and states she will review that with the Pt. Jennifer Blue RN * Telephone Encounter - Nadir Grady MD - 09/24/2022 10:29 AM EST Let Brannon know the only blood sugar medication I advised him and his sister in law (who was presentat his appt with me on 08/21/2022) to hold was his Amaryl 2 mg a day. He was asked to keep record of his blood sugar fasting and 2 hrs after lunch and to bring this in with him at his f/u appt in a month. * Telephone Encounter - Aaliyah Horner LPN - 09/24/2022 10:04 AM EST Brannon Clayton with [facility] calls to report they take care of setting up pt's meds. Today pt reported to Brannon that Actos was stopped. Brannon is asking pcp if medication has been discontinued and if there is documentation concerning this could it please be faxed to: [phone]. Can call Brannon @ [phone]. Actos is currently on pt's med chart. Aaliyah Horner LPN documented in this encounterOhio State University [facility]01-23-2023 Instructions* Patient Instructions* Jenna Jim APRN.CERTIFIED ANESTHESIOLOGIST ASSISTANT - 09/23/2022 3:05 PM EST Week 1 and 2: Take one tablet at bedtime Week 3 and 4 : Take twice per day (one tablet after breakfast and one tablet at bed) Keep monitoring your blood pressure. If the medication is helping you should notice less fatigue, stabilizing blood pressure, less dizziness, less high heart rates and better stamina. documented in this encounterOhio State University [facility]01-23-2023 Instructions* Patient Instructions* Miladys Butt APRN.CNP - 09/23/2022 2:26 PM EST ASSESSMENT/PLAN: 1. Foot injury, left, initial encounter - ICD9: 959.7, ICD10: S99.922A - XR FOOT GENERAL 3V AP/LAT/OBL LEFT Radiologist IMPRESSION: No radiographic evidence of acute osseous injury. Letter Sorting Machine Operator: FAWN Transcribe Date/Time: Sep 23 2022 1:46P [...] illness Miladys Butt APRN.CNP documented in this encounterOhio State University [facility]01-23-2023 History of Present illness Narrative* Miladys Butt APRN.CNP - 09/23/2022 1:34 PM EST Images from the original note were not included. Subjective Trauma Pertinent negatives include no fever or rash. Michael Bates is a 67 year old male who presentswith bruising and pain to his left foot for the past week after dropping a piece of frozen chicken on it. He estimates the chicken 1.5-2 lbs. He rates his pain 8/10. He has taken aspirin for pain, used ice, and has soaked his foot in water with epsom salt. He states this helps for a bit of time butthen the pain returns. Review of Systems Constitutional: [...] Date 2D ECHO (EXEP) 01/16/2017 EF=60%, 1+ MD and TI CATARACT EXTRACTION HX Left 10/2019 [...] tablet by mouth once daily. Managed by [facility] omega-3 fatty acids 1,000 mg cap Take 2 capsules by mouth once daily. aspirin, enteric coated (ECOTRIN LOW STRENGTH) 81 mg EC tablet Take 1 tablet by mouth once daily. Blood Pressure Monitor kit 1 Each once daily. Blood Glucose Control High and Low (ACCU-CHEK MEGHANA CONTROL SOLN) soln Use as directed as indicatedto check quality of test strips ranolazine ER [...] No radiographic evidence of acute osseous injury. Letter Sorting Machine Operator: FAWN Transcribe Date/Time: Sep 23 2022 1:46P Dictated by : PHYLLIS TORRES MD - Follow-up with your PCP in 3-5 days if symptoms have not improved or sooner if symptoms worsen - Discussed red flags and need for immediate medical evaluation if any occur. - Discussed supportive care treatment with fluids, rest and analgesia. - Discussed expected course of illness Miladys Butt APRN.CERTIFIED ANESTHESIOLOGIST ASSISTANT documented in this encounterOhio State University [facility] Center01-23-2023 History of Present illness Narrative* Chaz Pastor RT(R) - 09/23/2022 1:30 PM EST Radiology Service Progress Note PATIENT NAME: Michael Bates DATE OF SERVICE: September 23, 2022 TIME: 1:33 PM PATIENT IDENTITY VERIFICATION COMPLETED USING TWO (2) IDENTIFIERS: Name and Date of confirmedby patient verbally. FALL SCREENING: Has the patient had 2 falls in the last year or 1 fall with injury or currently using an Ambulatory Assistive Device (Walker, Cane, Wheelchair, Crutches, etc.)? No PATIENT GENDER DATA: Male PATIENT RELEVANT IMPLANT DATA REVIEWED: Not Applicable RADIOLOGY DEPARTMENT: General X-ray: Exam(s) Completed: Lower Extremity X- Ray(s): Foot, Left and Wt. Bearing PERIPHERAL IV DATA: Not applicable SIGNED BY: RT Angie(R) September 23, 2022 1:33 PM documented in this encounterCleveland [id number] History of Present illness Narrative* Jenna Jim, COLLETTE.CERTIFIED ANESTHESIOLOGIST ASSISTANT - 09/19/2022 3:30 PM EST Images from the original note were not included. [facility] [place] Follow-up Visit Follow-up note September 19, 2022 [...] Cardiac cath scheduled for this upcoming Friday. 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 Previously noted to have low blood pressure [...] further cardiac testing scheduled for Friday02/11/22. Would alsorecommend continuing to follow up with cardiology for medication management and adjustment; currently on midodrine 10mg TID. May need to consider consult to autonomic clinic if no further improvementin pressure. In interim continue utilizing compression stockings and maintaining adequate hydrationand nutrition (proteins and salts). R20.0 Facial numbness [...] that he has previously taken injectable medications andwas following with Dr. Gold with pain management. Could consider use of Lyrica, however, given concern for episodes related to drop in BP will hold off on initiation of medications at this time. Can continue to follow with pain management as well. Saw neurology earlier today at [facility]. Per [facility] Dr. العلي at appointment earlier today (09/19/22): HPI: Note: Have syncope for the past year. He reports he is getting low blood pressure. Was treated withmidodrine but had to stop it. He is [...] of multiple head injury. Saw neurology is [facility] - orthostatic - med SE, no overt [...] when his son was in the hospital andhe was given a benzodiazepine and this stopped his symptoms. Currently takes a benzo 0.5mg prn. Has been keeping track of blood pressure. Presents with BP log with multiple BP's in 60's and 70's.He did have appointment with autonomic clinic. Balaji Gagnon 04/25/22: Balaji Gagnon CERTIFIED ANESTHESIOLOGIST ASSISTANT on 04/25/22: IMPRESSION/PLAN: Michael Bates is a 67 year old male with hx of CAD, HLD, HTN, DM, Covid-19 (2020) Migraine presents today for evaluation and treatment of orthostatic hypotension with recurrent episodes of syncope. He was referred for evaluation for autonomic dysfunction with possible parkinson's disease. Orthostatic hypotension is evident on orthostatic vitals assessment with BP dropping from 113/75 down to78/53. He is currently on midodrine 10 mg TID however he has only take one dose at time of appointment today. He does not have bradyphrenia, bradykinesia, shuffled gait, or mask like face to raise concern of central cause of autonomic dysfunction e.g. MSA vs Parkinson's. Decreased pinprick, and vibr ation sensation to lower extremities is concerning for small fiber neuropathy which is likely contributing to [place]. Neuropathy is likely secondary to diabetes. We discussed possible confirmation of neuropathy with tests such as skin nerve biopsy however he has restrictions with transportation and would be difficulty to go to our [place] location to complete. Medications can also be contributing to his symptoms. He is taking amitriptyline 150 mg for sleep which could contribute to orthostasis. He has been on this medication for about 3 years and I can not be sure if or how much this may contributing, however I am recommending he follow up with PCP to discuss discontinuation and alternate yeni tment options. We discussed the role of non-pharmacologic therapy such as increasing fluid and electrolyte intake, changing position slowly, and continued work with increasing exercise. He does not have apparent signs of parkinson's, however autonomic dysfunction can be early symptoms. We discussedvarious treatment options. We discussed adding amantadine 100 [...] occipital neuralgia affecting right side. He will haveepisodes of shooting pain multiple times per day lasting a few seconds at a time. Pain is reproducible on palpitation in office today. We discussed occipital nerve blocks which he reports he may havehad a few years ago and had benefit. [...] three meals per day and snacking. Not restrictingsodium. Not wearing compression stockings today but does wear them at home. Reports generalized weakness. Feels like he can't exercise like he used to. States exercise hurts his muscles. States he did pass out in [place] four weeks ago. Tremors intermittently in hands. [...] lumbar 06/30/2016 Multi level, worse L2-L3 Diabetes ([facility]) Diabetic eye exam ([facility]) 03/19/2017 Last done: 10/01/2018 Elevated [...] Date 2D ECHO (EXEP) 01/16/2017 EF=60%, 1+ MD and TI CATARACT EXTRACTION HX Left 10/2019 [...] tablet by mouth once daily. Managed by [facility] omega-3 fatty acids 1,000 mg cap Take 2 capsules by mouth once daily. aspirin, enteric coated (ECOTRIN LOW STRENGTH) 81 mg EC tablet Take 1 tablet by mouth once daily. Blood Pressure Monitor kit 1 Each once daily. Blood Glucose Control High and Low (ACCU-CHEK MEGHANA CONTROL SOLN) soln Use as directed as indicatedto check quality of test strips No current [...] mildly off balance. Retropulsion on pull test. LEBRON of pronation and supination, finger and hand tapping intact. Toe tapping intact. Mild rigidity to BUE, bradykinesia. No tremors. Rises from chair without using arms. Labs/studies: Cardiac Cath 02/11/22: CT Brain Report CT BRAIN WO IVCON Exam End: 04/05/2022 2:00 PM (Final result) Narrative: * * *Final Report* * * DATE OF EXAM: Apr 05 2022 2:00PM [facility] 0504 - CT BRAIN WO IVCON [...] base and imaged soft tissues are unremarkable. Clinical Cytogeneticist (topogram) images: No acute findings Impression: IMPRESSION: No significant change. No acute intracranial process Letter Sorting Machine Operator: [facility] Transcribe Date/Time: Apr 05 2022 2:06P Dictated [...] carotid arteries bilaterally. Normal visualized paranasal sinuses. IMPRESSION: Normal unenhanced [...] height and morphology. Normal central canal and intervertebralneuroforamina. Normal visualized soft tissue structures. IMPRESSION: Normal unenhanced CT examination of the [...] been DC'd). Discussed that we can trial smalldecrease in gabapentin dose to determine if there is any affect on BP, however, must consider that head and neck pain may worsen with decrease in medication. He would like to attempt to decrease doseand will decrease to 600mg BID. New prescription [...] which included preparing to see the patient, [id number] patient care, completing clinical documentation, obtaining and/or reviewing separately obtained history, performing a medically appropriate examination, counseling and educating the pa tient/family/caregiver, ordering medications, tests, or procedures, and communicating with other HCPs (not separately reported). documented in this encounterOhio State University [facility]01-05-2023 Miscellaneous Notes* Telephone Encounter - Jennifer Blue RN - 09/05/2022 3:16 PM EST Pt called and is notified of providers message and instructions. Pt voices understanding. Jennifer Blue RN * Telephone Encounter - Nadir Grady MD - 09/05/2022 2:59 PM EST Let patient know that he did product picker the pseudoephedrine 30 mg tabs and needs to take one three times a day as he was instructed to help raise his blood pressure. This medication causes constriction of blood vessels to raise the blood pressure and increased heart rate and will not cause dizziness of fatigue. * Telephone Encounter - Karla Wadsworth MA - 09/05/2022 2:37 PM EST Contacted pharmacy and they indicated that patient picked up the prescription 08/22. Karla Wadsworth MA * Telephone Encounter - Nadir Grady MD - 09/05/2022 2:27 PM EST Sowmya contact [facility] and see if patient picked up the script for the pseudoephedrine? * Telephone Encounter - Karla Wadsworth MA - 09/05/2022 1:32 PM EST Patient indicated that he never got the medication from the pharmacy only the Iron supplement. Please see attached note as to why he stopped. August 28 Brannon SAHNI from [facility] calls to report that patient had taken pseudoephedrine and patient became dizzy,couldn't stand, and couldn't stay awake. Patient has not taken this medication anymore. Karla Wadsworth MA * Telephone Encounter - Nadir Grady MD - 09/05/2022 12:55 PM EST Please find out from patient if he is taking the pseudoephedrine 30 mg tabs three times a day that I sent in at the last appt on 08/21/2022 and is not why? With [facility] [employer] this should of been less than $8. * Telephone Encounter - Selma Echevarria LPN - 09/05/2022 11:49 AM EST Pt calls and states the following: LOW [...] pt. Selma Echevarria LPN documented in this encounterOhio State University [facility]12-30-2022 Miscellaneous Notes* Telephone Encounter - Karla Wadsworth MA - 08/30/2022 10:21 AM EST Patient has been identified by name and date of : Yes Requested Prescriptions Pending Prescriptions Disp Refills ferrous sulfate 325 mg (65 mg iron) tablet 60 tablet 1 Sig: Take 1 tablet by mouth twice daily with meals. RX INSTRUCTIONS: Patient aware RX will be sent to pharmacy. No need to notify patient. Karla Wadsworth MA Hanna: 07/2022 Nov: 09/2022 Last refill: 06/2022 * Telephone Encounter - Liza Hood - 08/30/2022 10:17 AM EST Patient has been identified by name and [...] and advise. Liza Hood documented in this encounterOhio State University [facility] Center12-28-2022 Miscellaneous Notes* Telephone Encounter - Martha Boston PA-C - 08/28/2022 9:58 AM EST Noted. * Telephone Encounter - Beverly Rawls RN - 08/28/2022 9:12 AM EST Brannon SAHNI from [facility] calls to report that patient had taken pseudoephedrine and patient became dizzy,couldn't stand, and couldn't stay awake. Patient has not taken this medication anymore. Patient also requested office visit notes to be faxed to [phone]. Faxed as requested. Beverly Rawls RN documented in this encounterOhio State University [facility] Center12-22-2022 Miscellaneous Notes* Telephone Encounter - Nadir Grady MD - 08/22/2022 9:34 AM EST Noted. * Telephone Encounter - Karla Wadsworth MA - 08/22/2022 9:20 AM EST Spoke with Michael and gave Dr. Grady recommendations. He said he would think about it and let us know. I patient I would send the name of the medication via [employer]. Karla Wadsworth MA * Telephone Encounter - Nadir Grady MD - 08/22/2022 9:08 AM EST Let Michael know I did some looking into alternate treatments for esophageal spasms. There is a med called hyoscyamine that he would take three times a day and it will not affect BP. If interested I will send in script to [facility]. documented in this encounterOhio State University [facility] Center12-22-2022 Miscellaneous Notes* Telephone Encounter - CALLIE Rodriguez - 08/22/2022 8:24 AM EST TC to patient, POA answered and took detailed message for patient. Verbalized understanding with noquestions at this time. CALLIE Rodriguez * Telephone Encounter - Nadir Grady MD - 08/21/2022 8:52 PM EST Let patient know iron levels are better and hemoglobin is almost back to normal. Cont the iron medication. documented in this encounterOhio State University [facility] Center12-21-2022 Instructions* Patient Instructions* Nadir Grady MD - 08/21/2022 9:49 AM [...] to be below 180. documented in this encounterOhio State University [facility]xner [facility] Center12-21-2022 History of Present illness Narrative* Nadir Grady MD - 08/21/2022 8:52 AM EST Chief Complaint Patient presents with: Follow Up [...] will be seeing Neurology in September in [place] for eval also. Patient's BS's have been [...] Date 2D ECHO (EXEP) 01/16/2017 EF=60%, 1+ MD and TI CATARACT EXTRACTION HX Left 10/2019 [...] tablet by mouth once daily. Managed by [facility] omega-3 fatty acids 1,000 mg cap Take 2 capsules by mouth once daily. aspirin, enteric coated (ECOTRIN LOW STRENGTH) 81 mg EC tablet Take 1 tablet by mouth once daily. Blood Pressure Monitor kit 1 Each once daily. Blood Glucose Control High and Low (ACCU-CHEK MEGHANA CONTROL SOLN) soln Use as directed as indicatedto check quality of test strips No current [...] All prescriptions have been APPROPRIATELY filled. No suspiciousactivity was identified. 08/21/2022 by Nadir Grady MD [...] which included preparing to see the patient, [id number] patient care, completing clinical documentation, performing a medically appropriate examination, counseling and educating the patient/family/caregiver and ordering medications, tests, or procedures. Nadir Grady MD documented in this encounterOhio State University [facility] Center12-07-2022 Miscellaneous Notes* Telephone Encounter - Nadir Grady MD - 08/07/2022 1:10 PM EST The following approved medication requests have been transmitted electronically. Requested Prescriptions Signed Prescriptions Disp Refills gabapentin (NEURONTIN) 800 mg tablet 180 tablet 0 Sig: Take 1 tablet by mouth twice daily for 90 days. Authorizing Provider: NADIR GRADY MD * Telephone Encounter - Nicola Valentino Ma - 08/06/2022 4:29 PM EST Patient last visit 07/30/22 Follow up appointment scheduled 08/21/22 Nicola Valentino Ma * Telephone Encounter - Veena Currie - 08/06/2022 4:13 PM EST Patient has been identified by name and date of : Yes Requested Prescriptions Pending Prescriptions Disp Refills gabapentin (NEURONTIN) 800 mg tablet 180 tablet 0 Sig: Take 1 tablet by mouth twice daily for 90 days. RX INSTRUCTIONS: Patient aware RX will be sent to pharmacy. No need to notify patient. Veena Currie documented in this encounterOhio State University Wexner [facility] Center12-05-2022 Nurse Note* Keith Rawls Ma - 08/05/2022 1:41 PM EST AMBULATORY CYSTOSCOPY PROCEDURE PREOPERATIVE/PROCEDURAL VERIFICATION: Patient verified [...] resp. rate 18, height 177.8 cm (5' 10), weight 77.1 kg (170 lb). Current pain [...] Nurse: Keith Rawls Ma documented in this encounterOhio State University [facility] Center12-05-2022 History of Present illness Narrative* Mike Lucero MD - 08/05/2022 12:51 PM EST [facility] [place] CYSTOSCOPY PROCEDURE NOTE: Michael Bates is a 67 year old male who presents with BPH for cystoscopy. Pt ID verified with patient: Yes Procedure verified with patient: Yes Procedure confirmed with physician and information support project manager: Yes UNIVERSAL PROTOCOL / SAFETY CHECKLIST Procedure [...] cystoscopy procedure and personnel were discussed with thepatient. The verbal consent was obtained and the [...] the flexible cystoscope was removed atraumatically. The patienttolerated the procedure without complications. Patient was given [...] PRN Mike Lucero MD documented in this encounterOhio State University [facility] Center11-29-2022 History of Present illness Narrative* Franny Catalan, BRAILLE PROOFREADER.CERTIFIED ANESTHESIOLOGIST ASSISTANT - 07/30/2022 3:38 PM EST Chief Complaint Coldness in chest HPI Michael [...] is cold to touch. Patient states nothing helpsdespite layering clothes and that it is so bothersome he cant sleep. Patient reports that it occursin his anterior chest from nipple to nipple. [...] Date 2D ECHO (EXEP) 01/16/2017 EF=60%, 1+ MD and TI CATARACT EXTRACTION HX Left 10/2019 [...] tablet by mouth once daily. Managed by [facility] omega-3 fatty acids 1,000 mg cap Take 2 capsules by mouth once daily. aspirin, enteric coated (ECOTRIN LOW STRENGTH) 81 mg EC tablet Take 1 tablet by mouth once daily. Blood Pressure Monitor kit 1 Each once daily. Blood Glucose Control High and Low (ACCU-CHEK MEGHANA CONTROL SOLN) soln Use as directed as indicatedto check quality of test strips No current [...] goal of <130/80 - CONSULT TO NEUROLOGY Franny Catalan APRN.MIGEL documented in this encounterOhio State University [facility] Center11-28-2022 Miscellaneous Notes* Telephone Encounter - Karla Wadsworth MA - 07/29/2022 4:25 PM EST Patient rescheduled. Karla Wadsworth MA * Telephone Encounter - Aaliyah Horner LPN - 07/29/2022 2:41 PM EST Pt's POA Frida called in for an appt. Frida had hung up phone while appt was being scheduled with Franny Catalan CNP for 07/30 @ 9:00 am. Appt was taken by another spa concierge. Message left on Frida's vm to call back to reschedule appt. Aaliyah Horner LPN documented in this encounterOhio State University [facility] Center11-11-2022 Miscellaneous Notes* Telephone Encounter - Ramez Hagen RN - 07/12/2022 9:59 AM EST Called patient's POA and she confirmed the appointment on 08/05 documented in this encounterOhio State University [facility] Center11-10-2022 Miscellaneous Notes* Telephone Encounter - Karla Wadsworth MA - 07/11/2022 11:27 AM EST Patient notified and voiced understanding. Karla Wadsworth MA * Telephone Encounter - Martha Boston PA-C - 07/11/2022 10:29 AM EST Let patient know that his renal function is normal. Okay to restart metformin. Also his iron levels and blood counts are improving. Continue the iron supplement. Martha Boston PA-C documented in this encounterOhio State University [facility] Center11-09-2022 Miscellaneous Notes* Telephone Encounter - Martha Boston PA-C - 07/10/2022 1:25 PM EST Noted. agree * Telephone Encounter - Luis E Agudelo LPN - 07/10/2022 12:43 PM EST Martha, please see below KARTHIK. Luis E Agudelo LPN * Telephone Encounter - Opal Dash - 07/10/2022 12:08 PM EST Spoke with Branden Vick's nurse about scheduling the patient for a consultation. She reported thepatient will need to speak with an MD in urology for the procedure that he is being referred for. Irelayed the information to the patient's POA. I attempted to contact [facility] but had to leave a VM of the patient's information and request for appointment. The patient's POA understood that aVM had been left and that [facility] will reach out. She was provided the phone number to [facility]. documented in this encounterOhio State University [facility] Center11-09-2022 Miscellaneous Notes* Telephone Encounter - Luis E Agudelo LPN - 07/10/2022 11:46 AM EST Patient notified of results and provider's instructions. Patient verbalizes understanding. Also called EC Frida per pt's request to review results and instructions. Pt had wanted her to schedule Urology appointment for him. Reviewed results and instructions with Frida, she verbalizes understanding.She was transferred to schedule Urology appointment. Copy of CT scan faxed with FYI to [facility]. Luis E Agudelo LPN * Telephone Encounter - Martha Boston PA-C - 07/10/2022 11:22 AM EST Let patient know that CT abd scan shows mild bladder wall thickening which is of uncertain nature and I would like him to see urology for this. CT shows coronary artery calcifications. Will just forward result to his cardiology ([facility]) as a FYI only. Given that he recently had a heart cath, not much more that they will likely recommend. Martha Boston PA-C documented in this encounterOhio State University [facility]xner [facility] Center11-08-2022 History of Present illness Narrative* Elzbieta Reynaga, RT(R) - 07/09/2022 10:40 AM EST Radiology Service Progress Note DATE OF SERVICE: [...] creatinine assay has traceable calibration to isotope dilution- mass spectrometry. Refer to KDIGO guidelines for clinical interpretation. In patients with unstable renal function, e.g. those with acute kidney injury, the eGFRmay not accurately reflect actual GFR. eGFR- Date [...] 2022 TIME: 12:12 PM documented in this encounterOhio State University [facility] Center11-04-2022 Miscellaneous Notes* Telephone Encounter - Luis E Agudelo LPN - 07/05/2022 12:30 PM EDT Spoke with pt and reviewed Martha's message. Pt verbalizes understanding. Luis E Agudelo LPN * Telephone Encounter - Martha Boston PA-C - 07/05/2022 11:36 AM EDT Let patient know that this was prescribed for short term use only. I did not have plans to keep himon this daily or prison. This was discussed with him. I will give him one more refill and if he feels he needs to stay on it longer, he will need to haveanother visit to discuss this. Martha Boston PA-C * Telephone Encounter - Karla Wadsworth MA - 07/05/2022 9:44 AM EDT Patient has been identified by name and date of : Yes Requested Prescriptions Pending Prescriptions Disp Refills LORazepam (ATIVAN) 0.5 mg 15 tablet 0 Sig: Take 1 tablet by mouth twice daily as needed (anxiety) for up to 30 days. RX INSTRUCTIONS: Patient aware RX will be sent to pharmacy. No need to notify patient. Karla Wadsworth MA Hanna: 05/2022 Nov: 10/2022 Last refill: 05/2022 documented in this encounterOhio State University [facility] Center11-01-2022 Miscellaneous Notes* Telephone Encounter - Luis E Agudelo LPN - 07/02/2022 8:49 AM EDT Called pt and reviewed Martha's result note and instructions. Pt verbalizes understanding. Advisedpt would call Frida to update her as well. Pt was transferred to schedule CT scan. Reviewed Martha's message and instructions with frida, she verbalizes understanding. Also sent copy of message via My Chart so Frida will have for reference. Luis E Agudelo LPN * Telephone Encounter - Martha Boston PA-C - 07/02/2022 7:44 AM EDT Let patient know that US shows fatty [...] metformin. Martha Boston PA-C documented in this encounterOhio State University Wexner [facility] Center11-01-2022 History of Present illness Narrative* Thai Santiago MD - 07/02/2022 6:25 AM EDT HISTORY AND PHYSICAL Michael Bates 1955 REFERRING [...] 08/04/[address] Duque Chronic sinusitis Claudication ([facility]) 06/04/2017 PVR's normal. Coronary atherosclerosis due to lipid rich plaque 01/20/[address] Kern. s/p RODDY to Ramus and RODDY to LAD placed 01/20/2017. COVID-19 virus infection 06/18/202106/2021 DDD (degenerative disc disease), cervical 01/20/2012 DDD (degenerative disc disease), lumbar 06/30/2016 Multi level, worse L2-L3 Diabetes ([facility]) Diabetic eye exam ([facility]) 03/19/2017 Last done: 10/01/2018 Elevated [...] Date 2D ECHO (EXEP) 01/16/2017 EF=60%, 1+ MD and TI CATARACT EXTRACTION HX Left 10/2019 [...] tablet by mouth once daily. Managed by [facility] omega-3 fatty acids 1,000 mg cap Take 2 capsules by mouth once daily. aspirin, enteric coated (ECOTRIN LOW STRENGTH) 81 mg EC tablet Take 1 tablet by mouth once daily. Blood Pressure Monitor kit 1 Each once daily. Blood Glucose Control High and Low (ACCU-CHEK MEGHANA CONTROL SOLN) soln Use as directed as indicatedto check quality of test strips sertraline (ZOLOFT) 50 mg tablet Take 1 tablet by mouth once daily. (Patient not taking: Reported on 06/27/2022) amantadine HCl (SYMMETREL) 100 mg capsule Take 1 capsule by mouth twice daily. (Patient not taking:Reported on 06/27/2022) No current facility-administered medications for [...] entered by the nurse and reviewed by sc Nursing Notes: Yovanny Thacker LPN 06/27/2022 9:31 AM Signed REVIEW [...] last Mammogram screening? N/A Last Colonoscopy: none Yovanny Thacker LPN PHYSICAL EXAMINATION: General: The patient is 67 year old male, well nourished, well hydrated in no acute distress. The patient is oriented to time, place, and person. VITALS: Blood pressure 110/62, pulse 80, temperature 36.3 C (97.4 F), height 177.8 cm (5' 10), weight 71.7 kg (158 lb), SpO2 97 %. Body mass index is 22.67 kg/m . HEENT: Normal cephalic, ataumatic, pupils are equally round, sclera are anicteric, mucous membranesare moist, oropharynx is clear. Neck has no [...] that complications can occur including failure to completethe endoscopy and perforation. The patient had the [...] type My findings have been communicated to Darvin via shared medical record. This note will be forwarded to Nadir Grady MD. Return to Clinic: The patient is instructed to follow-up with me after the testing has been completed. Thai Santiago MD documented in this encounterOhio State University [facility]xner [facility] Center10-31-2022 History of Present illness Narrative* Karin Hamilton RDMS - 07/01/2022 7:00 AM EDT Radiology Service Progress Note PATIENT NAME: Michael Bates DATE OF SERVICE: July 01, 2022 TIME: 9:02 AM PATIENT IDENTITY VERIFICATION COMPLETED USING TWO (2) IDENTIFIERS: Name and Date of confirmedby patient verbally. FALL SCREENING: Has the patient [...] 01, 2022 9:02 AM documented in this encounterOhio State University [facility] Center10-27-2022 Miscellaneous Notes* Telephone Encounter - Luis E Agudelo LPN - 06/27/2022 11:13 AM EDT Spoke with pt and advised of Martah's message and instructions. Pt verbalizes understanding. Pt also aware this nurse had given this message to Frida as well. Luis E Agudelo LPN * Telephone Encounter - Luis E Agudelo LPN - 06/27/2022 9:51 AM EDT Advised pt's [id number] Frida of Martha's message and instructions. She [...] bit later today. Luis E Agudelo LPN * Telephone Encounter - Martha Boston PA-C - 06/27/2022 8:52 AM EDT Let patient know that his iron level is low. Will want him to start iron supplement, I will send this in. Repeat labs in 1 month. Martha Boston PA-C documented in this encounterOhio State University [facility] Center10-27-2022 Instructions* Patient Instructions* Thai Santiago MD - 06/27/2022 11:08 AM EDT Images from the original note were not included. Bowel Preparation Instructions for: Golytely, Nulytely, Trilyte or Colyte (polyethylene glycol 3350and electrolytes) IF YOU DO NOT FOLLOW THESE DIRECTIONS, YOUR COLONOSCOPY WILL BE CANCELLED. Miles Instructions: Your bowel must be empty so [...] If you do not have a responsible lifter/driver (family member or friend) with you to take you home, your exam cannot be done with sedation and will be cancelled. Please bring a list of all of your current medications, including any Over-the Counter medications with you. Medications If you take insulin, diabetic medications or blood thinners such as Coumadin (warfarin), Plavix (clopidogrel), Ticlid (ticlopidine hydrochloride), Agrylin (anagrelide), Xarelto (Rivaroxaban), Pradaxa(Dabigatran), Eliquis (Apixaban), and Effient (Prasugrel). You MUST [...] Golytely, Nulytely, Trilyte or Colyte (polyethylene glycol 3350and electrolytes) Three (3) Days Before Your Colonoscopy [...] until midnight. 2 08/2019 documented in this encounterOhio State University [facility] Center10-27-2022 Nurse Note* Yovanny Thacker LPN - 06/27/2022 9:27 AM EDT REVIEW OF SYSTEMS: General: The patient notes [...] last Mammogram screening? N/A Last Colonoscopy: none Yovanny Thacker LPN documented in this encounterOhio State University [facility] Center10-26-2022 Miscellaneous Notes* Telephone Encounter - Jennifer Blue RN - 06/26/2022 3:04 PM EDT Pt called and is notified of providers message and instructions. Pt voices understanding. Jennifer Blue RN * Telephone Encounter - Nadir Grady MD - 06/26/2022 2:36 PM EDT The following approved medication requests have been transmitted electronically. Requested Prescriptions Signed Prescriptions Disp Refills glimepiride (AMARYL) 2 mg tablet 30 tablet 5 Sig: Take 1 tablet by mouth daily with breakfast. Authorizing Provider: MARTHA BOSTON Blood-Glucose Meter monitoring kit 1 Each 0 Sig: Glucose Meter of Choice - Kit - Dx: Type 2 DM - Uncontrolled E11.65 Authorizing Provider: NADIR GRDAY Lancets lancets 100 Each 11 Sig: Test blood sugar(s) 2 times daily. Dx: Type 2 DM - Uncontrolled E11.65 Insulin: No Authorizing Provider: NADIR GRADY blood sugar diagnostic (BLOOD GLUCOSE TEST) test strip 100 Strip 11 Sig: Test blood sugar(s) 2 times daily. Dx: Type 2 DM - Uncontrolled E11.65 Insulin: No Authorizing Provider: NADIR GRADY MD * Telephone Encounter - Beulah Wright LPN - 06/26/2022 1:59 PM EDT Frida Cameron (pt's relative & emergency contact) called to verify appts. Frida states to go ahead & call in new Rx for glucometer, lancets & test strips to [facility], pending. Beulah Wright LPN * Telephone Encounter - Nadir Grady MD - 06/26/2022 1:37 PM EDT Looking at med list it seems like he has not had a new glucose meter in 5 years. See if he is ok with us sending in scripts for new meter, lancets and test strips? * Telephone Encounter - Martha Boston PA-C - 06/26/2022 1:15 PM EDT Noted. When is next time [facility] care network coming out to check? Martha Boston PA-C The following approved medication requests have been transmitted electronically. Requested Prescriptions Signed Prescriptions Disp Refills glimepiride (AMARYL) 2 mg tablet 30 tablet 5 Sig: Take 1 tablet by mouth daily with breakfast. Authorizing Provider: MARTHA BOSTON PA-C * Telephone Encounter - Jennifer Blue RN - 06/26/2022 1:13 PM EDT Jennifer at [facility] was called and given providers information. She requested last OV notes be faxed over for Dr Kern to see. She states they will call back once he has looked at them and made any decisions. Faxed last OV note to [phone]. * Telephone Encounter - Jennifer Blue RN - 06/26/2022 12:20 PM EDT Pt called and is notified of providers results and instructions. Pt voices understanding. Pt stateshe has been taking the metformin and actos as prescribed. He states he would be will to back on theglimiperide to get his readings down. He states he did not do his BS today he needs to get lancets,so he could not do it while on the phone. Pt was put through to scheduling to make General Surgery appointment. Pt knows to come in and get labs done. Will call [facility]. Jennifer Blue RN * Telephone Encounter - Martha Boston PA-C - 06/26/2022 11:46 AM EDT Let patient know that his anemia is worsening. We need to further evaluate this with additional labs and consult for scopes to check for blood loss. Could be causing his fatigue. His glucose was significantly high at 443. This could be causing/exacerbating his symptoms as well.Please confirm with patient that he is taking both metformin and actos as prescribed. I know at onepoint he was adjusting his medications on his own. Did he check his BS today? Can he check while on the phone. Would he be willing to go back on glimiperide to help get these readings down? Also can you contact [facility] and let them know we saw patient yesterday and his BP was 80/50. We are working up anemia and adjusting diabetic management, but didn't know if they wanted to address the low blood pressure and make medication change. Martha Boston PA-C documented in this encounterOhio State University [facility] Center10-25-2022 Miscellaneous Notes* Telephone Encounter - Selma Echevarria LPN - 06/25/2022 2:54 PM EDT Brannon with [facility] called for office visit from today 06-25-22 apt with CAMELIA Candelario. Identified pt with name and date of . Faxed copy to [phone]. Done. Selma Echevarria LPN documented in this encounterOhio State University Wexner Medical Center10-25-2022 History of Present illness Narrative* Francine Bartholomew RT(Emmanuelle) - 06/25/2022 9:00 AM EDT Radiology Service Progress Note PATIENT NAME: Michael Bates DATE OF SERVICE: June 25, 2022 TIME: 8:45 AM PATIENT IDENTITY VERIFICATION COMPLETED USING TWO (2) IDENTIFIERS: Name and Date of confirmedby patient verbally. FALL SCREENING: Has the patient had 2 falls in the last year or 1 fall with injury or currently using an Ambulatory Assistive Device (Walker, Cane, Wheelchair, Crutches, etc.)? No PATIENT GENDER DATA: Male PATIENT RELEVANT IMPLANT DATA REVIEWED: Yes RADIOLOGY DEPARTMENT: General X-ray: Exam(s) Completed: Chest X-Ray PERIPHERAL IV DATA: Not applicable SIGNED BY: RT Collin(Emmanuelle) June 25, 2022 8:45 AM documented in this encounterOhio State University Wexner [facility] Center10-25-2022 Instructions* Patient Instructions* Martha Boston PA-C - 06/25/2022 8:10 AM EDT Make an appointment with cardiology to discuss your blood pressures. documented in this encounterOhio State University Wexner Medical Center10-25-2022 History of Present illness Narrative* Martha Boston PA-C - 06/25/2022 8:07 AM EDT Chief Complaint Patient presents with: Weight Loss: [...] gabapentin and seeing neuro but feels that noone is addressing the issues. Patient also feels [...] 08/04/[address] Duque Chronic sinusitis Claudication ([facility]) 06/04/2017 PVR's normal. Coronary atherosclerosis due to lipid rich plaque 01/20/[address] Kern. s/p RODDY to Ramus and RODDY to LAD placed 01/20/2017. COVID-19 virus infection 06/18/202106/2021 DDD (degenerative disc disease), cervical 01/20/2012 DDD (degenerative disc disease), lumbar 06/30/2016 Multi level, worse L2-L3 Diabetes ([facility]) Diabetic eye exam ([facility]) 03/19/2017 Last done: 10/01/2018 Elevated [...] Date 2D ECHO (EXEP) 01/16/2017 EF=60%, 1+ MD and TI CATARACT EXTRACTION HX Left 10/2019 [...] by mouth twice daily. Per cardioDr. Kern fluticasone (FLONASE) 50 mcg/actuation nasal spray [...] tablet by mouth once daily. Managed by [facility] omega-3 fatty acids 1,000 mg [...] CONTROL SOLN) soln Use as directed as indicatedto check quality of test strips Blood-Glucose Meter monitoring kit Glucose Meter of Choice - Kit - Dx: Type 2 DM - Uncontrolled E11. Lancets lancets Test blood sugar(s) 2 times daily. Dx: Type 2 DM - Uncontrolled E11.65 Insulin: No amantadine HCl (SYMMETREL) 100 mg capsule Take 1 capsule by mouth twice daily. (Patient not taking:Reported on 06/25/2022) No current facility-administered medications on [...] HYDROXY Martha Boston PA-C documented in this encounterOhio State University Wexner Medical Center10-20-2022 Miscellaneous Notes* Telephone Encounter - Madhuri Chapa LPN - 06/20/2022 12:59 PM EDT Brannon Odonnell LPN returned call and went over notes below from Dr Grady with understanding. Patient has appt scheduled for Friday with Martha valentine, added muscle mass loss and weight loss to appt notes, so can discuss these issues. Brannon will contact [facility] for other rx refills. * Telephone Encounter - Karla Wadsworth MA - 06/20/2022 11:48 AM EDT Left message for patient Brannon to contact office regarding patient. Karla Wadsworth MA Attempted to contact patient to schedule an appointment. Tried several times phone rings fast busy. Karla Wadsworth MA * Telephone Encounter - Nadir Grady MD - 06/19/2022 7:59 PM EDT Please advise patient he should make an appt to eval the muscle mass loss. Also inform him that his plavix and lipitor come from the [facility] and will need to contact [...] for 90 days. Authorizing Provider: NADIR GRADY * Telephone Encounter - Beverly Rawls RN - 06/19/2022 10:03 AM EDT Patient calls back and states that she also wanted to let provider know that patient is complainingsince he had Covid 2 weeks ago patient has been losing muscle mass rapidly. No change in diet or medications noted. See message below regarding prescriptions. Please review and advise, Beverly Rawls RN * Telephone Encounter - Beverly Rawls RN - 06/19/2022 9:47 AM EDT Brannon calls back and notified of provider instructions. Brannon voices understanding. Patient is now getting his prescriptions through [facility]. Asking for prescriptions to be sent there. Patient's blood sugar is 245 today. Please review and advise, Beverly Rawls RN * Telephone Encounter - Nadir Grady MD - 06/18/2022 10:05 AM EDT Let brannon know I want to increase his actos to 30 mg a day. Is he still getting meds packaged from [facility] or did he change pharmacies. * Telephone Encounter - Jennifer Blue RN - 06/18/2022 9:32 AM EDT Brannon SAHNI [facility] reports they have the [facility] [employer] health program and they were called in a blood sugar on the Pt of 447. She states the Pt reports he has only had a milk so far this morning. Pt takes Actos daily and Metformin twice a day. Pt is asymptomatic. Brannon SAHNI told Pt to start drinking lots of water. Please call and advise. documented in this encounterOhio State University Wexner [facility] Center09-29-2022 Miscellaneous Notes* Telephone Encounter - Michelle Oakes - 05/30/2022 8:13 AM EDT Frida called and Michael fell with head strike, went to ED last evening, dropped drill on foot, having headaches, problems with sensations in legs now. Headaches worsening and requesting advisement. Thank you, Michelle Oakes documented in this encounterOhio State University Wexner Medical Center09-28-2022 Miscellaneous Notes* Telephone Encounter - Luis E Agudelo LPN - 05/29/2022 1:34 PM EDT Received fax from [facility] requesting pt's last A1c as pt is in there program. Last A1c faxed to [phone] as requested. Luis E Agudelo LPN documented in this encounterOhio State University Wexner Medical Center09-27-2022 History of Present illness Narrative* Karin Hamm APRN.MIGEL - 05/28/2022 4:20 PM EDT Called to triage patient. 67 year old male presents with multiple complaints. Headache Endorses that the back of his neck and head hurt. Endorses a few days ago he fell off couch, struck head and had LOC. States that the pain is severe. Denies seeking medical treatment. Given his worsening headache with injury and LOC, Referred to ED documented in this encounterOhio State University Wexner Medical Center09-27-2022 Miscellaneous Notes* Telephone Encounter - Nadir Grady MD - 05/28/2022 1:56 PM EDT Noted. * Telephone Encounter - Nury Jo RN - 05/28/2022 11:18 AM EDT Call placed to Brannon with provider response. Brannon reports that she has since spoke with patient and he reports that he hasn't stopped the amantadine or sertraline. She also wonders how patient would be aware of s/e. Verified patient is taking midodrine when BP is greater than 120/80. Instructed Brannon to contact Dr. Kern for further assistance with directions since he prescribes this. Notified Brannon that patient would have to be responsible to notify [facility] of no longer needing services and would need to let provider's office know when he is in need of prescriptions through [facility]. Brannon verbalizes understanding and plans to contact patient. Nury Jo RN * Telephone Encounter - Nadir Grady MD - 05/28/2022 10:04 AM EDT Since patient cant read how does he know what the possible side affects are? The Zoloft and amantadine are most likely not causing the dizziness it's the low BP's. It doesn't make sense to take the midodrine when his BP is above 120/80 since it's ment to raise his BP not lower it. Also we just got a call from [facility] asking us to send the Actos script to them yesterday ??? Not sure how they know it went to [facility] (which is what the patient wanted) but since the person who responded to the message was not aware he was not wanting things at [facility] it got sent there. So if he is not going to use [facility] then he needs to let them know and then update use when he wants meds sent to [facility]. However I think this is a bad idea since he can not read. * Telephone Encounter - Nury Jo RN - 05/28/2022 9:38 AM EDT Brannon Clayton with [facility] calls to update provider on patient. Brannon reports that patient has stopped taking sertraline and amantadine d/t possible side effect of dizziness. She reports that he is removing the pills from his pill packs supplied by [facility] but patient isn't able to read so she is not certain how he is actually identifying the correct pills to remove. Patient reported to Brannon that he is no longer going to receive medication [facility]. Recent blood sugar readings: 232, 198, 270, and this am 387 after eating a PB sandwich. Brannon uncertain if the other readings are fasting but they are all AM readings. Recent blood pressure readings: 111/54, 54/41, 67/49, 80/56, 117/61, and 141/67 (today). Patient takes midodrine if BP above 120/80 which is managed by Dr. Kern. Currently taking prednisone 20 mg daily also ordered by Dr. Kern. Brannon requesting a call back at [phone] if provider wants any changes or any response to the above. Please review and advise, Nury Jo RN documented in this encounterOhio State University Wexner Medical Center09-23-2022 Miscellaneous Notes* Telephone Encounter - Karla Wadsworth MA - 05/24/2022 6:01 PM EDT Patient notified. Karla Wadsworth MA * Telephone Encounter - Nadir Grady MD - 05/24/2022 5:58 PM EDT Let patient know Actos sent to [facility] for 90 days. The following approved medication requests have been transmitted electronically. Requested Prescriptions Signed Prescriptions Disp Refills pioglitazone (ACTOS) 15 mg tablet 90 tablet 1 Sig: Take 1 tablet by mouth once daily. Authorizing Provider: NADIR GRADY MD * Telephone Encounter - Adrianne Howard LPN - 05/24/2022 4:13 PM EDT Patient called, he would like prescription sent to [facility] today. * Telephone Encounter - Karla Wadsworth MA - 05/24/2022 3:15 PM EDT Did contact Frida and she indicated that she did speak with Michael and she is ok with medication being sent to [facility] but would need some system for Michael. Was talking to Frida about sending the medication for Actos now to [facility] and our phone . Karla Wadsworth MA * Telephone Encounter - Karla Wadsworth MA - 05/24/2022 1:10 PM EDT Spoke with Brannon and gave her PCP instructions. Also spoke with patient and he would like for this medication to go to [facility]. In fact he would like all of this medication to go to [facility]. I will contact Brannon to let her know. Karla Wadsworth MA * Telephone Encounter - Nadir Grady MD - 05/23/2022 8:43 AM EDT Let [facility] with [facility] know his Januvia is most likely the most expensive. Looking at his med sheet from [facility] the next two most costly are his [...] once daily. Authorizing Provider: NADIR GRADY MD * Telephone Encounter - Karla Wadsworth MA - 05/22/2022 5:06 PM EDT Received list from pharmacy and given to PCP for review. Karla Wadsworth MA * Telephone Encounter - Jennifer Blue RN - 05/21/2022 10:54 AM EDT Brannon with [facility] had called in and reported that the [...] you were wanting to change this medication. * Telephone Encounter - Karla Wadsworth MA - 05/20/2022 3:21 PM EDT Contacted pharmacy and they are faxing over the cost/co-pays for all the medications. Karla Wadsworth MA * Telephone Encounter - Martha Boston PA-C - 05/20/2022 1:44 PM EDT Januvia can be expensive if not covered by insurance. Are they able to get a breakdown of the cost from the pharmacy so we can address the specific meds that may be causing him the high costs. It would be hard to make changes without knowing where the concern actually is. Martha Boston PA-C * Telephone Encounter - Selma Echevarria LPN - 05/20/2022 9:27 AM EDT Frida Cameron, relative of pt called and states pt's medications are now up to over $500.00 a sheetand family concerned. Frida states she would like someone to review pt's medications and see if there could be cheaper ones sent to the pharmacy. Especially Blood pressure and diabetes medications. Some of the medications pt takes are given to him from different providers and she will contact them.Pt was seen in [facility] 05[facility]14[facility]22 and dx with ANA. Pt not able to do virtual apts. Please review and instruct Frida. Willing to bring in for an apt. Let Frida know. Pt's pharmacy is [facility] and gets pre packed sheets. Selma Echevarria LPN documented in this encounterOhio State University [facility] Center09-14-2022 Miscellaneous Notes* Telephone Encounter - Martha Boston PA-C - 05/15/2022 9:04 AM EDT The following approved medication requests have been transmitted electronically. Requested Prescriptions Signed Prescriptions Disp Refills SITagliptin (JANUVIA) 50 mg tablet 30 tablet 5 Sig: Take 1 tablet by mouth once daily. Authorizing Provider: MARTHA BOSTON PA-C * Telephone Encounter - Symone العلي LPN - 05/14/2022 3:22 PM EDT Patient called in for Lab results, given below results/recommendation. Patient is willing to try Januvia, updated pharmacy. He will come in next week to repeat labs. Symone العلي LPN * Telephone Encounter - Luis E Agudelo LPN - 05/14/2022 2:06 PM EDT Left message for pt to contact office. Luis E Agudelo LPN * Telephone Encounter - Martha Boston PA-C - 05/14/2022 12:58 PM EDT As we discussed, a1c did go up to 7.8%. would he be willing to try januvia? Sodium level just borderline low.. recheck in 1 week, Rest of labs wnl. documented in this encounterOhio State University Wexner Medical Center09-12-2022 Instructions* Patient Instructions* Martha Boston PA-C - 05/13/2022 8:09 AM EDT Please complete labs today. We have increased zoloft to 50mg. Follow up in 6 weeks for recheck on the increase of zoloft. Follow up in 6 months medicare wellness exam. Make sure to schedule your eye exam documented in this encounterOhio State University Wexner Medical Center09-12-2022 History of Present illness Narrative* Martha Boston PA-C - 05/13/2022 8:06 AM EDT Chief Complaint Patient presents with: 6 Month [...] worse L2-L3 Diabetes (HCC) Diabetic eye exam ([facility]) 03/19/2017 Last done: 10/01/2018 Elevated [...] Date 2D ECHO (EXEP) 01/16/2017 EF=60%, 1+ MD and TI CATARACT EXTRACTION HX Left 10/2019 [...] CONTROL SOLN) soln Use as directed as indicatedto check quality of test strips Blood-Glucose Meter [...] a week, then 1/2 a tab every otherday for 3 doses then stop (Patient not [...] exam Martha Boston PA-C documented in this encounterOhio State University [facility] Center09-02-2022 Miscellaneous Notes* Telephone Encounter - Abdirahman Duong RN - 05/03/2022 10:12 AM EDT Patient has been identified by name and [...] you. Abdirahman Duong RN documented in this encounterOhio State University Wexner [facility] Center09-01-2022 Miscellaneous Notes* Telephone Encounter - Nadir Grady MD - 05/02/2022 4:02 PM EDT Noted. * Telephone Encounter - Jennifer Blue RN - 05/02/2022 10:47 AM EDT Brannon Odonnell LPN from [facility] called and is notified of providers [...] been on the Ranexa. Jennifer Blue RN * Telephone Encounter - Nadir Grady MD - 05/01/2022 8:59 PM EDT Let brannon know if the symptoms just started then I would consider one of the newer meds he is on. Amantadine per his neurologist or the Ranexa or Midodrine per [facility] * Telephone Encounter - Madhuri Chapa LPN - 05/01/2022 3:00 PM EDT Brannon Odonnell LPN from [facility] calling patient is complaining of his mouth burning if he eats any pickles or ketchup. He eats a lot of potato chips for the salt, that does not bother him. Patient has no open sores in his mouth at all. Asking if any of his medications may be causing this? Please advise documented in this encounterOhio State University Wexner Medical Center08-30-2022 Miscellaneous Notes* Telephone Encounter - Luis E Agudelo LPN - 04/30/2022 9:42 AM EDT Brannon advised of Dr Grady's message. She will contact office back if weaning instructions are needed. Luis E Agudelo LPN * Telephone Encounter - Nadir Grady MD - 04/30/2022 9:15 AM EDT Let Brannon know that I talked with patient via MY Chart and he told me he already had instructions on how to wean off the Amitriptyline. Ask her to check with him today when she sees him. If this is not the case let me know and I will address. * Telephone Encounter - Madhuri Chapa LPN - 04/30/2022 8:48 AM EDT Brannon SAHNI from [facility] calling to check status of note. Office notes from 04/25 visit with Neuro says to discuss with Dr Grady to discontinue Amitriptyline. Brannon has appt with patient at 10am today, she is asking for weaning instructions please. Please advise * Telephone Encounter - Nadir Grady MD - 04/26/2022 10:30 AM EDT Will forward note regarding tapering of amitriptyline to Neuro. Med list updated. * Telephone Encounter - Beverly Rawls RN - 04/26/2022 9:45 AM EDT Brannon SAHNI from [facility] calls to report that patient had seen Rin Gagnon yesterday and was started on amantadine. Brannon noticed that there were some historical medications not on the after summary list that Dr. Vieira has ordered. Prednisone 20 mg Daily Ranolazine 500 mg Twice a day Brannon states that at appointment with was Rin had mentioned patient weaning off of amitriptyline. Bull states there were no instructions on how to wean off of medication. Please review and advise, Beverly Rawls RN documented in this encounterOhio State University Wexner [facility] Center08-27-2022 Miscellaneous Notes* Telephone Encounter - Luis E Agudelo LPN - 04/27/2022 11:34 AM EDT Please see pt's update. Luis E Agudelo LPN documented in this encounterOhio State University Wexner Medical Center08-25-2022 Instructions* Patient Instructions* Rin Pagan BishnukristopherCOLLETTE.CERTIFIED ANESTHESIOLOGIST ASSISTANT - 04/25/2022 2:35 PM EDT Ortostatic Hypotension. [...] ensure you are not dizzy. Then stand butstop for a couple seconds and make sure you feel okay before starting to walk, this gives your bodyjust a couple seconds to equilibrate but also [...] falls in part due to the hot humidenvironment and in part due to standing. When in the shower try to avoid hot showers, if you do take a hot shower, cool the water in stages. Consider towel drying in the shower, so the change in tempis not as dramatic when leaving the shower. Use the techniques mentioned above to avoid standing still. Importantly, have a bench or chair in the shower to sit if you become lightheaded. Avoid large meals and especially large amounts of simple carbohydrates. Symptoms can be exacerbatedby the displacement of blood to digest large [...] (ankle to waist, 20-30mmHg) or a combination ofthigh high and an abdominal binder (can be [...] Postural response simply means lie down flat onyour back until the symptoms pass. If you cannot lie down then sit down or in a pinch lean over a counter or table but this is a last resort. The second option is physical counter manuevers. Physicalcounter maneuvers are techniques that try to elevate the blood pressure to you brain to stop passing out these are only temoporizing measures to try to avoid passsing out. You can cross your legs andtighten the muscles of your abdomen, butt and thighs. You can pull your hands apart and tighten thesame muscles (this can be done standing or sitting) or you can open and close, squeezing your handsvery firmly (like squeeze the juice out of [...] recovery period is a good time to takea breath and lie down or sit down [...] of the leg muscles. This will help preventblood from a pooling in the legs when standing and walking. Preferred exercises are walking, squatting or stationery bicycling. documented in this encounterOhio State University Wexner Medical Center08-25-2022 History of Present illness Narrative* Rin Gagnon APRN.CNP - 04/25/2022 1:07 PM EDT Images from the original note were not included. [facility] Neurology New Patient Evaluation [...] He will have multiple episodes of near syncopedaily. He reports dizziness, shakiness, tremors, low BP. [...] use lidocaine patch to relieve symptoms. Pain isreproducible with palpitation. Autonomic Screening Do you become [...] after a syncopal episode. He shortly after regainedfeeling. Hx of head/neck trauma? Yes- concussion with first syncopal episode Hx of severe viral illness? COVID 19 in 2020. He had significant weight loss from 205 to 165 over last year or so Hx of autoimmune disease? No History of emotional or physical abuse? No Relevant Work Up To Date Autonomic Reflex Tilt QSART Skin Biopsy Cook Jelly Echo EEG Labs: SPEP- normal, HGBA1C 7.1, [...] tablet by mouth once daily. Managed by [facility] omega-3 fatty acids 1,000 mg [...] CONTROL SOLN) soln Use as directed as indicatedto check quality of test strips Blood-Glucose Meter [...] Date 2D ECHO (EXEP) 01/16/2017 EF=60%, 1+ MD and TI CATARACT EXTRACTION HX Left 10/2019 [...] sister; Lung Cancer in his mother; Stroke inhis sister; neurofibromatosis in his son. ROS: autonomic [...] Extension 5/5 5/5 Movement/Coordination Finger-to- nose-finger and [id number] intact bilaterally. No evidence of ataxia arms. [...] assessment with BP dropping from 113/75 down to78/53. He is currently on midodrine 10 mg TID however he has only take one dose at time of appointment today. He does not have bradyphrenia, bradykinesia, shuffled gait, or mask like face to raise concern of central cause of autonomic dysfunction e.g. MSA vs Parkinson's. Decreased pinprick, and vibr ation sensation to lower extremities is concerning for small fiber neuropathy which is likely contributing to [place]. Neuropathy is likely secondary to diabetes. We discussed possible confirmation of neuropathy with tests such as skin nerve biopsy however he has restrictions with transportation and would be difficulty to go to our [place] location to complete. Medications can also be contributing to his symptoms. He is taking amitriptyline 150 mg for sleep which could contribute to orthostasis. He has been on this medication for about 3 years and I can not be sure if or how much this may contributing, however I am recommending he follow up with PCP to discuss discontinuation and alternate yeni tment options. We discussed the role of non-pharmacologic therapy such as increasing fluid and electrolyte intake, changing position slowly, and continued work with increasing exercise. He does not have apparent signs of parkinson's, however autonomic dysfunction can be early symptoms. We discussedvarious treatment options. We discussed adding amantadine 100 [...] occipital neuralgia affecting right side. He will haveepisodes of shooting pain multiple times per day lasting a few seconds at a time. Pain is reproducible on palpitation in office today. We discussed occipital nerve blocks which he reports he may havehad a few years ago and had benefit. [...] the personnel to be involved were discussed withthe patient, and the patient consents to the [...] which included preparing to see the patient, [id number] patient care, completing clinical documentation, obtaining and/or reviewing separately obtained history, performing a medically appropriate examination, counseling and educating the pat ient/family/caregiver, and ordering medications, tests, or procedures. During our face to face clinical encounter we discussed my concerns neurologically in terms of diagnosis, impact on health and activities of living, and addressed questions. I tried to reassure the patient and also address questions. I explained to the patient to call if any questions, to review res ults, and I want to see them return [...] Coronary Stent Placement Diabetic Eye Exam ([facility]) Leg Pain, Bilateral Medicare Annual Wellness Visit, Subsequent Gerd Without Esophagitis Neuropathy Primary Insomnia Abnormal Dreams Medication Management Illiteracy Anemia of Chronic Disease History of Covid-19 No orders found for this visit on 04/25/22. Rin Gagnon APRN.CNP General Neurology [address] [place]. [address] Appointment: [phone] 1. This office note has been dictated [...] and wish to discuss any issues directly withme, please feel free to obtain one. 3. [...] of your PCP/referring physician documented in this encounterOhio State University [facility]xner [facility] Center08-19-2022 History of Present illness Narrative* Martha Boston PA-C - 04/19/2022 8:16 AM EDT Chief Complaint Patient presents with: Medication Request [...] and that's how he was taken to [facility] ER. 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 Managed by [facility] omega-3 fatty acids 1,000 mg [...] CONTROL SOLN) soln Use as directed as indicatedto check quality of test strips Blood-Glucose Meter [...] TABLET Martha Boston PA-C documented in this encounterOhio State University Wexner [facility] Center08-09-2022 Miscellaneous Notes* Telephone Encounter - Nicola Valentino Ma - 04/09/2022 9:46 AM EDT Frida was notified and will have patient call to schedule ER follow up Nicola Valentino Ma * Telephone Encounter - Nadir Grady MD - 04/08/2022 10:02 PM EDT Please advise Frida that we do not have up to date papers listing her as power of development technical lead for health care. Also this title does not come into affect unless the patient can not speak for himself. I appreciate the info and would advise that Michael make an appt to be seen for ER follow up for tremors/anxiety. * Telephone Encounter - Patricia Adame LPN - 04/08/2022 1:58 PM EDT Patient POA calling office regarding patient episode of tremor that led to ER visit at [facility] over the weekend. Patient having increased stress currently due to son in hospital. Frida is asking for order of PRN Ativan for patient? (Pharmacy [facility]) * Telephone Encounter - CALLIE Rodriguez - 04/08/2022 1:46 PM EDT TC to Frida with providers update. Frida is going to call pts PCP, Dr. Grady, to discuss anxiety and depression as well as possible referral to psychiatry. CALLIE Rodriguez * Telephone Encounter - CALLIE Rodriguez - 04/08/2022 9:23 AM EDT Call received from Frida Cameron, pts emergency contact. Frida states that Michael was seen in the ED over the weekend due to having an episode of tremors. In ED patient received IV Ativan which Carolstates stopped his tremors almost immediately. Frida says [...] help with his anxiety due to her believingthis is the cause of his tremors. Frida says [facility] and therefore are reaching out to . Please advise. Thank you. CALLEI Rodriguez documented in this encounterOhio State University Wexner Medical Center08-03-2022 Miscellaneous Notes* Telephone Encounter - Nadir Grady MD - 04/03/2022 9:01 PM EDT The following approved medication requests have been transmitted electronically. Signed Prescriptions Disp Refills fluticasone (FLONASE) 50 mcg/actuation nasal spray 16 g 11 Sig: INSTILL 2 SPRAYS IN EACH NOSTRIL ONCE DAILY JOANNA: No Authorizing Provider: NADIR GRADY MD * Telephone Encounter - Selma Echevarria LPN - 04/03/2022 3:33 PM EDT Patient has been identified by name and [...] you. Selma Echevarria LPN documented in this encounterOhio State University Wex[facility] Center07-25-2022 Miscellaneous Notes* Telephone Encounter - Rashawn Hewitt APRN.CNP - 03/25/2022 9:34 AM EDT The following approved medication requests have been transmitted electronically. Pending Prescriptions Disp Refills NITROGLYCERIN 0.4 MG SUBLINGUAL TABLET 1 Bottle of 25 1 Sig: Dissolve 1 tablet under the tongue every 5 minutes as needed for chest pain. JOANNA: No Rashawn Hewitt APRN.CNP * Telephone Encounter - Karla Wadsworth MA - 03/25/2022 8:44 AM EDT Patient has been identified by name and date of : Yes Pending Prescriptions Disp Refills NITROGLYCERIN 0.4 MG SUBLINGUAL TABLET 1 Bottle of 25 0 Sig: Dissolve 1 tablet under the tongue every 5 minutes as needed for chest pain. JOANNA: No RX INSTRUCTIONS: Patient aware RX will be sent to pharmacy. No need to notify patient. Karla Wadsworth MA Hanna: 10/2021 Nov; 05/2022 Last refill: 03/2021 * Telephone Encounter - Barbara Johnson Pss - 03/25/2022 8:41 AM EDT Patient has been identified by name and date of : Yes Pending Prescriptions Disp Refills NITROGLYCERIN 0.4 MG SUBLINGUAL TABLET 1 Bottle of 25 0 Sig: Dissolve 1 tablet under the tongue every 5 minutes as needed for chest pain. JOANNA: No RX INSTRUCTIONS: Patient aware RX will be sent to pharmacy. No need to notify patient. Barbara Johnson Pss documented in this encounterOhio State University Wexner [facility] Center07-20-2022 Miscellaneous Notes* Telephone Encounter - Joceline Krueger Pss - 03/20/2022 12:54 PM EDT Called the patient and relayed the provider's message of CT results. The patient understood the information provided. * Telephone Encounter - Joceline Krueger Pss - 03/20/2022 12:54 PM EDT ----- Message from Jenna Jim APRN.CERTIFIED ANESTHESIOLOGIST ASSISTANT sent at 03/19/2022 5:21 PM EDT ----- CT of brain is normal and does not show any evidence of bleed. documented in this encounterOhio State University Wexner Medical Center07-19-2022 History of Present illness Narrative* Elzbieta Machuca, RT(R) - 03/19/2022 3:40 PM EDT Radiology Service Progress Note PATIENT NAME: Michael Bates DATE OF SERVICE: March 19, 2022 TIME: 3:05 PM PATIENT IDENTITY VERIFICATION COMPLETED USING TWO (2) IDENTIFIERS: Name and Date of confirmedby patient verbally. FALL SCREENING: Has the patient [...] 19, 2022 3:05 PM documented in this encounterOhio State University Wexner Medical Center07-19-2022 Miscellaneous Notes* Addendum Note - Jenna Jim APRN.CNP - 03/19/2022 1:50 PM EDT Addended by: JENNA JIM on: 03/19/2022 01:50 PM Modules accepted: Orders * Addendum Note - Jenna Jim APRN.CNP - 03/19/2022 1:25 PM EDT Addended by: JENNA JIM on: 03/19/2022 01:25 PM Modules accepted: Orders * Telephone Encounter - Joceline Krueger Pss - 03/19/2022 12:58 PM EDT Please call the patient and schedule for a stat CT. Order has been filed. Thank you, * Telephone Encounter - CALLIE Rodriguez - 03/18/2022 3:09 PM EDT Pt states he always has headaches but no new changes or worsening headache. Pt does feel that his speech is slower but no vision changes reported. Also no loss of bowel/bladder control, convulsions, or biting of tongue. Please reach out to patient and assist in scheduling Urgent CT. * Telephone Encounter - Jenna Jim APRN.MIGEL - 03/18/2022 2:12 PM EDT Is patient having any neurological deficits following [...] appointment scheduled with autonomic clinic on 04/04. * Telephone Encounter - CALLIE Rodriguez - 03/18/2022 1:00 PM EDT TC received in office from pt concerning [...] Thank you. CALLIE Rodriguez documented in this encounterOhio State University [facility] Center06-28-2022 Miscellaneous Notes* Telephone Encounter - Zaira Singh Pss - 02/26/2022 10:55 AM EDT Patient has been identified by name and [...] patient. Zaira Singh Pss documented in this encounterOhio State University Wex[facility] Center06-24-2022 Miscellaneous Notes* Telephone Encounter - Jenna Jim APRN.CNP - 02/22/2022 1:29 PM EDT Spoke with patient's RANJEET Frida. Discussed consult to autonomic clinic to address orthostatic hypotension prior to initiation of other medications. She is agreeable and states she would be able to drive patient to [place] (she lives in [place]). Consult placed. Will reach out to scheduling to assist with setting up appointment. * Addendum Note - Jenna Jim APRN.CNP - 02/22/2022 1:15 PM EDT Addended by: JENNA JIM on: 02/22/2022 01:15 PM Modules accepted: Orders * Telephone Encounter - Jenna Jim APRN.CNP - 02/22/2022 1:12 PM EDT Called patient's RANJEET again and no answer. Left voicemail again. * Telephone Encounter - CALLIE Rodriguez - 02/22/2022 1:04 PM EDT Frida, pt RANJEET, returning call. Frida is given providers message and is agreeable to take pt to [facility] if provider could put in consult. Frida is asking to speak with Jenna Jim directly. Please advise. Thank you. CALLIE Rodriguez * Telephone Encounter - Jenna Jim APRN.CNP - 02/22/2022 12:11 PM EDT Called patient's RANJEET Frida at this time. No answer and voicemail left. Will attempt again later today. * Telephone Encounter - Jenna Jim APRN.CNP - 02/21/2022 5:30 PM EDT Called and spoke with patient. Had cardiac [...] home three times daily. Pt reports blood pressurereadings which are still low and states he feels lightheaded often. Discussed consult to autonomic clinic to further address blood pressure prior to initiation of other medications for possible PD. Pt states he does not have capabilities for virtual visit. States he also is not supposed to be driving but states his sister in law may be able to drive him to [place] if that is closest location. Pt asking this provider to call his RANJEET to discuss this with her. Call placed to Frida; pt's RANJEET. No answer and voicemail left. Will attempt to contact again tomorrow. * Telephone Encounter - Joceline Krueger Pss - 02/19/2022 3:06 PM EDT Cardiac testing done at [facility] has been scanned. The patient didn't [...] Extensive workup has been completed thus far byPCP and cardiology including MRI of brain, CT brain, stress test, cardiac workup (recent echo completed in 07/22), and has received Loop Recorder. Cardiac cath scheduled for this upcoming Friday. 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 Previously noted to have low blood pressure [...] further cardiac testing scheduled for Friday02/11/22. Would alsorecommend continuing to follow up with cardiology for medication management and adjustment; currently on midodrine 10mg TID. May need to consider consult to autonomic clinic if no further improvementin pressure. In interim continue utilizing compression stockings and maintaining adequate hydrationand nutrition (proteins and salts). R20.0 Facial numbness [...] that he has previously taken injectable medications andwas following with Dr. Gold with pain management. Could consider use of Lyrica, however, given concern for episodes related to drop in BP will hold off on initiation of medications at this time. Can continue to follow with pain management as well. * Telephone Encounter - Symone العلي LPN - 02/19/2022 10:00 AM EDT Frida/[id number]-mbc/POA is calling, has not heard back from the office on the next step would be. Please advise. Symone العلي LPN documented in this encounterOhio State University [facility]06-09-2022 History of Present illness Narrative* Jenna Jim APRN.CERTIFIED ANESTHESIOLOGIST ASSISTANT - 02/07/2022 8:00 AM EDT Images from the original note were not included. [facility] [place] New Patient visit New Patient Consultation February 07, 2022 HPI: Mr. Bates presents today secondary to issues of syncope. He states that on Oct 13 he hadan episode of LOC. Since that time he [...] Per Dr. Grady 10/25/21: Patient went to [facility] on 10/16/2021 after having 2 syncopal episodes with in a 24 hr period. The firstone was on 10/13/2021 and he was at [...] dizzy before each episode. Patient went to [facility] 10/16/2021 and BP then was 117/75, [...] to face since 71. Numbness from neck totop lip. Feels like he is wearing a [...] Reports tremors; happen when he is angry. Notremor at rest. Reports changes in taste. Feels voice has gotten softer. No difficulty with fine hand coordination. No gait concerns. Does note balance problems. No falls. Denies hallucinations. Actsout dreams at night; has been chronic for [...] Date 2D ECHO (EXEP) 01/16/2017 EF=60%, 1+ MD and TI CATARACT EXTRACTION HX Left 10/2019 [...] tablet by mouth once daily. Managed by [facility] omega-3 fatty acids 1,000 mg [...] CONTROL SOLN) soln Use as directed as indicatedto check quality of test strips Blood-Glucose Meter [...] mildly off balance. Retropulsion on pull test. LEBRON of pronation and supination, finger and hand [...] carotid arteries bilaterally. Normal visualized paranasal sinuses. IMPRESSION: Normal unenhanced [...] height and morphology. Normal central canal and intervertebralneuroforamina. Normal visualized soft tissue structures. IMPRESSION: Normal unenhanced CT examination of the [...] Extensive workup has been completed thus far byPCP and cardiology including MRI of brain, CT brain, stress test, cardiac workup (recent echo completed in 07/22), and has received Loop Recorder. Cardiac cath scheduled for this upcoming Friday. 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 Previously noted to have low blood pressure [...] further cardiac testing scheduled for Friday02/11/22. Would alsorecommend continuing to follow up with cardiology for medication management and adjustment; currently on midodrine 10mg TID. May need to consider consult to autonomic clinic if no further improvementin pressure. In interim continue utilizing compression stockings and maintaining adequate hydrationand nutrition (proteins and salts). R20.0 Facial numbness [...] that he has previously taken injectable medications andwas following with Dr. Gold with pain management. [...] which included preparing to see the patient, [id number] patient care, completing clinical documentation, obtaining and/or reviewing separately obtained history, performing a medically appropriate examination and counseling and educating the patient/family/caregiver. documented in this encounterOhio State University [facility] Center06-01-2022 Miscellaneous Notes* Telephone Encounter - Nadir Grady MD - 01/30/2022 8:58 PM EDT The following approved medication requests have been [...] JOANNA: No Authorizing Provider: NADIR GRADY MD * Telephone Encounter - Madhuri Chapa LPN - 01/30/2022 3:14 PM EDT Patient has been identified by name and [...] you. Madhuri Chapa LPN documented in this encounterOhio State University [facility] Center05-26-2022 Miscellaneous Notes* Telephone Encounter - Selma Echevarria LPN - 01/24/2022 10:42 AM EDT Tian with [facility] called and requesting copy of last OV for pt. Pt was identified by name and date of . Faxed to [phone]. Selma Echevarria LPN documented in this encounterOhio State University [facility] Center05-06-2022 History of Present illness Narrative* Luis E Agudelo LPN - 01/04/2022 11:15 AM EDT Scan on 01/04/2022 9:59 AM by External Provider: Consultation - Cardiology documented in this encounterOhio State University [facility] Center04-14-2022 Evaluation note* Diagnosis Onset Date Resolution Status Bilateral carotid artery stenosis acute Syncope acute Essential (primary) hypertension chronic Hyperlipidemia chronic History of loop recorder December 13, 2021 acute Syncope acute [facility] Work Phone: 1(517) 835-167304-14-2022 Evaluation note* Diagnosis Onset Date Resolution Status Bilateral carotid artery stenosis acute Syncope acute Essential (primary) hypertension chronic Hyperlipidemia chronic History of loop recorder December 13, 2021 acute Syncope acute History of loop recorder December 13, 2021 acute Syncope acute Atherosclerotic heart diseas e of [place] coronary artery without angina pectoris chronic Bilateral carotid artery stenosis acute History of loop recorder December 13, 2021 acute Hypotension acute Syncope acute Atherosclerotic heart diseas e of [place] coronary artery without angina pectoris chronic Essential (primary) hypertension chronic History of coronary artery stent placement July 232020 chronic Hyperlipidemia chronic History of loop recorder December 13, 2021 acute Syncope acute [facility] Work Phone: 1(510) 125-551904-14-2022 Evaluation note* Diagnosis Onset Date Resolution Status Bilateral carotid artery stenosis acute Syncope acute Essential (primary) hypertension chronic Hyperlipidemia chronic History of loop recorder December 13, 2021 acute Syncope acute History of loop recorder December 13, 2021 acute Syncope acute Atherosclerotic heart diseas e of [place] coronary artery without angina pectoris chronic Bilateral carotid artery stenosis acute History of loop recorder December 13, 2021 acute Hypotension acute Syncope acute Atherosclerotic heart diseas e of [place] coronary artery without angina pectoris chronic Essential (primary) hypertension chronic History of coronary artery stent placement July 232020 chronic Hyperlipidemia chronic History of loop recorder December 13, 2021 acute Syncope acute Bilateral carotid artery stenosis acute Chest pain acute Atherosclerotic heart diseas e of [place] coronary artery without angina pectoris chronic Essential (primary) hypertension chronic History of coronary artery stent placement July 232020 chronic Hyperlipidemia [facility] Work Phone: 1(170) 497-203204-14-2022 Evaluation note* Diagnosis Onset Date Resolution Status History of loop recorder December 13, 2021 acute Syncope acute History of loop recorder December 13, 2021 acute Syncope acute Atherosclerotic heart diseas e of [place] coronary artery without angina pectoris chronic Bilateral carotid artery stenosis acute History of loop recorder December 13, 2021 acute Hypotension acute Syncope acute Atherosclerotic heart diseas e of [place] coronary artery without angina pectoris chronic Essential (primary) hypertension chronic History of coronary artery stent placement July 232020 chronic Hyperlipidemia chronic History of loop recorder December 13, 2021 acute Syncope acute Bilateral carotid artery stenosis acute Chest pain acute Atherosclerotic heart diseas e of [place] coronary artery without angina pectoris chronic Essential (primary) hypertension chronic History of coronary artery stent placement July 232020 chronic Hyperlipidemia [facility] Work Phone: 1(227) 327-966004-14-2022 Evaluation note* Diagnosis Onset Date Resolution Status Atherosclerotic heart diseas e of [place] coronary artery without angina pectoris chronic History of loop recorder December 13, 2021 chronic Syncope October, chronic Atherosclerotic heart diseas e of [place] coronary artery without angina pectoris chronic Bilateral carotid artery stenosis chronic Essential (primary) hypertension chronic History of coronary artery stent placement July 232020 chronic History of loop recorder December 13, 2021 chronic Hyperlipidemia chronic Hypotension chronic Syncope October, chronic History of loop recorder December 13, 2021 chronic Syncope October, chronic Atherosclerotic heart diseas e of [place] coronary artery without angina pectoris chronic Bilateral carotid artery stenosis chronic Essential (primary) hypertension chronic History of coronary artery stent placement July 232020 chronic Hyperlipidemia chronic Syncope October, chronic Atherosclerotic heart diseas e of [place] coronary artery without angina pectoris chronic Bilateral carotid artery stenosis chronic History of coronary artery stent placement July 232020 chronic History of loop recorder December 13, 2021 chronic Hyperlipidemia chronic Hypotension chronic Syncope October, [facility] Work Phone: 1(729) 501-519004-14-2022 Evaluation note* Diagnosis Onset Date Resolution Status Atherosclerotic heart diseas e of [place] coronary artery without angina pectoris chronic Bilateral carotid artery stenosis chronic History of loop recorder December 13, 2021 chronic Hyperlipidemia chronic Hypotension chronic Syncope October, chronic [facility] Work Phone: 1(947) 154-864704-14-2022 Miscellaneous Notes* Telephone Encounter - Karen Piper RPh - 12/13/2021 1:37 PM EDT Kai spoke with Frida. She states she was [...] he is NOT taking amlodipine or lisinopril. PharmAristeo reviewed med list which is accurate. Appears [...] if needs additional assistance. Karen Piper PharmD, [facility] Primary Care Clinical Pharmacist [facility] * Telephone Encounter - Karen Piper RPh - 12/13/2021 12:49 PM EDT Kai called Frida but unable to reach, LEFT MESSAGE ON MACHINE to return call to office. Karen Piper PharmD, [facility] Primary Care Clinical Pharmacist [facility] * Telephone Encounter - Beverly Rawls RN - 12/13/2021 9:55 AM EDT Patient's sister Frida calls and is asking [...] advise, Beverly Rawls RN documented in this encounterOhio State University [facility] Center03-24-2022 Miscellaneous Notes* Telephone Encounter - Paula Donaldson LPN - 11/22/2021 10:47 AM EDT Patient notified of results, verbalizes understanding of instructions. Paula Donaldson LPN * Telephone Encounter - Nadir Grady MD - 11/22/2021 9:47 AM EDT Let patient know urine and blood protein studies were normal. Bleeding studies were normal. BMP was ok except for elevated blood sugar. documented in this encounterOhio State University [facility] Center11-22-2021 Evaluation note* Diagnosis Onset Date Resolution Status Atherosclerotic heart diseas e of [place] coronary artery without angina pectoris chronic Bilateral carotid artery stenosis chronic Essential (primary) hypertension chronic History of coronary artery stent placement July 232020 chronic Hyperlipidemia chronic Syncope October, chronic Atherosclerotic heart diseas e of [place] coronary artery without angina pectoris chronic Bilateral carotid artery stenosis chronic History of coronary artery stent placement July 232020 chronic History of loop recorder December 13, 2021 chronic Hyperlipidemia chronic Hypotension chronic Syncope October, [facility] Work Phone: 1(155) 897-342210-29-2021 Miscellaneous Notes* Telephone Encounter - Jourdan Nava - 06/29/2021 10:29 AM EDT Patient notified and verbalized understanding. * Telephone Encounter - Ade Garcia APRN.MIGEL - 06/29/2021 7:34 AM EDT Please call patient and let him know his CT is negative for blood clot. Does shows ground glass opacities consistent with COVID-19 pneumonia. Does show some consolidation so I will cove with antibiotics. This is a two antibiotic regime. 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 Medications sent to [facility] pharmacy in [place]. Thanks, Ade Garcia APRN.MIGEL documented in this encounterOhio State University [facility] Center10-27-2021 History of Present illness Narrative* Chaz Pastor RT(R) - 06/27/2021 3:20 PM EDT Radiology Service Progress Note PATIENT NAME: Michael Bates DATE OF SERVICE: June 27, 2021 TIME: 3:20 PM PATIENT IDENTITY VERIFICATION COMPLETED USING TWO (2) IDENTIFIERS: Name and Date of confirmedby patient verbally. FALL SCREENING: Has the patient had 2 falls in the last year or 1 fall with injury or currently using an Ambulatory Assistive Device (Walker, Cane, Wheelchair, Crutches, etc.)? No PATIENT GENDER DATA: Male PATIENT RELEVANT IMPLANT DATA REVIEWED: Not Applicable RADIOLOGY DEPARTMENT: General X-ray: Exam(s) Completed: Chest X-Ray PERIPHERAL IV DATA: Not applicable SIGNED BY: RT Angie(R) June 27, 2021 3:20 PM documented in this encounterOhio State University [facility] Center02-08-2021 History of Present illness Narrative* Chaz Pastor (Rt), Tech - 10/09/2020 10:30 AM EST Radiology Service Progress Note PATIENT NAME: Michael Bates DATE OF SERVICE: October 09, 2020 TIME: 10:30 AM PATIENT IDENTITY VERIFICATION COMPLETED USING TWO (2) IDENTIFIERS: Name and Date of confirmedby patient verbally. FALL SCREENING: Has the patient had 2 falls in the last year or 1 fall with injury or currently using an Ambulatory Assistive Device (Walker, Cane, Wheelchair, Crutches, etc.)? No PATIENT GENDER DATA: Male PATIENT RELEVANT IMPLANT DATA REVIEWED: Not Applicable RADIOLOGY DEPARTMENT: General X-ray: Exam(s) Completed: Upper Extremity X- Ray(s): Shoulder, AP / TRUE AP right : PERIPHERAL IV DATA: Not applicable SIGNED BY: RT Angie October 09, 2020 10:30 AM [facility] of Present illness Narrative* Chaz Pastor (Rt), Tech - 09/08/2020 8:50 AM EST Radiology Service Progress Note PATIENT NAME: Michael Bates DATE OF SERVICE: September 08, 2020 TIME: 8:57 AM PATIENT IDENTITY VERIFICATION COMPLETED USING TWO (2) IDENTIFIERS: Name and Date of confirmedby patient verbally. FALL SCREENING: Has the patient had 2 falls in the last year or 1 fall with injury or currently using an Ambulatory Assistive Device (Walker, Cane, Wheelchair, Crutches, etc.)? No PATIENT GENDER DATA: Male PATIENT RELEVANT IMPLANT DATA REVIEWED: Not Applicable RADIOLOGY DEPARTMENT: General X-ray: Exam(s) Completed: Chest X-Ray PERIPHERAL IV DATA: Not applicable SIGNED BY: RT Angie September 08, 2020 8:57 AM [facility] History of Past illness Narrative* Problem Noted Date Resolved Date Well adult exam 10/03/2016 04/12/2020 Overview: last done: 07/16/19. does not want colonoscopies. Other physical therapy 08/16/2010 0 Sprain of neck 07/30/2010 08/30/2010 Unspecified pruritic disorder 03/02/2009 Cervicalgia 10/16/2006 10/30/2018 Hyperlipidemia 08/04/2015 documented as of this encounter (statuses as of 12/03/2021) [place] [id number] History of Past illness Narrative* Problem Noted Date Resolved Date Well adult exam 10/03/2016 04/12/2020 Overview: last done: 07/16/19. does not want colonoscopies. Other physical therapy 08/16/2010 0 Sprain of neck 07/30/2010 08/30/2010 Unspecified pruritic disorder 03/02/2009 Cervicalgia 10/16/2006 10/30/2018 Hyperlipidemia 08/04/2015 documented as of this encounter (statuses as of 12/13/2021) [facility] of [facility] illness Narrative* Problem Noted Date Resolved Date Well adult exam 10/03/2016 04/12/2020 Overview: last done: 07/16/19. does not want colonoscopies. Other physical therapy 08/16/2010 0 Sprain of neck 07/30/2010 08/30/2010 Unspecified pruritic disorder 03/02/2009 Cervicalgia 10/16/2006 10/30/2018 Hyperlipidemia 08/04/2015 documented as of this encounter (statuses as of 01/07/2022) [facility] of [facility] illness Narrative* Problem Noted Date Resolved Date Well adult exam 10/03/2016 04/12/2020 Overview: last done: 07/16/19. does not want colonoscopies. Other physical therapy 08/16/2010 0 Sprain of neck 07/30/2010 08/30/2010 Unspecified pruritic disorder 03/02/2009 Cervicalgia 10/16/2006 10/30/2018 Hyperlipidemia 08/04/2015 documented as of this encounter (statuses as of 01/24/2022) [facility] illness Narrative* Problem Noted Date Resolved Date Well adult exam 10/03/2016 04/12/2020 Overview: last done: 07/16/19. does not want colonoscopies. Other physical therapy 08/16/2010 0 Sprain of neck 07/30/2010 08/30/2010 Unspecified pruritic disorder 03/02/2009 Cervicalgia 10/16/2006 10/30/2018 Hyperlipidemia 08/04/2015 documented as of this encounter (statuses as of 01/30/2022) [facility] Narrative* Problem Noted Date Resolved Date Well adult exam 10/03/2016 04/12/2020 Overview: last done: 07/16/19. does not want colonoscopies. Other physical therapy 08/16/2010 0 Sprain of neck 07/30/2010 08/30/2010 Unspecified pruritic disorder 03/02/2009 Cervicalgia 10/16/2006 10/30/2018 Hyperlipidemia 08/04/2015 documented as of this encounter (statuses as of 01/31/2022) [facility] Narrative* Problem Noted Date Resolved Date Well adult exam 10/03/2016 04/12/2020 Overview: last done: 07/16/19. does not want colonoscopies. Other physical therapy 08/16/2010 0 Sprain of neck 07/30/2010 08/30/2010 Unspecified pruritic disorder 03/02/2009 Cervicalgia 10/16/2006 10/30/2018 Hyperlipidemia 08/04/2015 documented as of this encounter (statuses as of 02/11/2022) [facility] of [facility] Narrative* Problem Noted Date Resolved Date Well adult exam 10/03/2016 04/12/2020 Overview: last done: 07/16/19. does not want colonoscopies. Other physical therapy 08/16/2010 0 Sprain of neck 07/30/2010 08/30/2010 Unspecified pruritic disorder 03/02/2009 Cervicalgia 10/16/2006 10/30/2018 Hyperlipidemia 08/04/2015 documented as of this encounter (statuses as of 02/22/2022) [facility] Narrative* Problem Noted Date Resolved Date Well adult exam 10/03/2016 04/12/2020 Overview: last done: 07/16/19. does not want colonoscopies. Other physical therapy 08/16/2010 0 Sprain of neck 07/30/2010 08/30/2010 Unspecified pruritic disorder 03/02/2009 Cervicalgia 10/16/2006 10/30/2018 Hyperlipidemia 08/04/2015 documented as of this encounter (statuses as of 02/26/2022) [facility] Narrative* Problem Noted Date Resolved Date Well adult exam 10/03/2016 04/12/2020 Overview: last done: 07/16/19. does not want colonoscopies. Other physical therapy 08/16/2010 0 Sprain of neck 07/30/2010 08/30/2010 Unspecified pruritic disorder 03/02/2009 Cervicalgia 10/16/2006 10/30/2018 Hyperlipidemia 08/04/2015 documented as of this encounter (statuses as of 03/19/2022) [facility] Narrative* Problem Noted Date Resolved Date Well adult exam 10/03/2016 04/12/2020 Overview: last done: 07/16/19. does not want colonoscopies. Other physical therapy 08/16/2010 0 Sprain of neck 07/30/2010 08/30/2010 Unspecified pruritic disorder 03/02/2009 Cervicalgia 10/16/2006 10/30/2018 Hyperlipidemia 08/04/2015 documented as of this encounter (statuses as of 03/20/2022) [facility] Narrative* Problem Noted Date Resolved Date Well adult exam 10/03/2016 04/12/2020 Overview: last done: 07/16/19. does not want colonoscopies. Other physical therapy 08/16/2010 0 Sprain of neck 07/30/2010 08/30/2010 Unspecified pruritic disorder 03/02/2009 Cervicalgia 10/16/2006 10/30/2018 Hyperlipidemia 08/04/2015 documented as of this encounter (statuses as of 03/20/2022) [facility] Narrative* Problem Noted Date Resolved Date Well adult exam 10/03/2016 04/12/2020 Overview: last done: 07/16/19. does not want colonoscopies. Other physical therapy 08/16/2010 0 Sprain of neck 07/30/2010 08/30/2010 Unspecified pruritic disorder 03/02/2009 Cervicalgia 10/16/2006 10/30/2018 Hyperlipidemia 08/04/2015 documented as of this encounter (statuses as of 03/25/2022) [facility] Narrative* Problem Noted Date Resolved Date Well adult exam 10/03/2016 04/12/2020 Overview: last done: 07/16/19. does not want colonoscopies. Other physical therapy 08/16/2010 0 Sprain of neck 07/30/2010 08/30/2010 Unspecified pruritic disorder 03/02/2009 Cervicalgia 10/16/2006 10/30/2018 Hyperlipidemia 08/04/2015 documented as of this encounter (statuses as of 04/04/2022) [facility] Narrative* Problem Noted Date Resolved Date Well adult exam 10/03/2016 04/12/2020 Overview: last done: 07/16/19. does not want colonoscopies. Other physical therapy 08/16/2010 0 Sprain of neck 07/30/2010 08/30/2010 Unspecified pruritic disorder 03/02/2009 Cervicalgia 10/16/2006 10/30/2018 Hyperlipidemia 08/04/2015 documented as of this encounter (statuses as of 04/09/2022) [facility] Narrative* Problem Noted Date Resolved Date Well adult exam 10/03/2016 04/12/2020 Overview: last done: 07/16/19. does not want colonoscopies. Other physical therapy 08/16/2010 0 Sprain of neck 07/30/2010 08/30/2010 Unspecified pruritic disorder 03/02/2009 Cervicalgia 10/16/2006 10/30/2018 Hyperlipidemia 08/04/2015 documented as of this encounter (statuses as of 04/19/2022) [facility] Narrative* Problem Noted Date Resolved Date Well adult exam 10/03/2016 04/12/2020 Overview: last done: 07/16/19. does not want colonoscopies. Other physical therapy 08/16/2010 0 Sprain of neck 07/30/2010 08/30/2010 Unspecified pruritic disorder 03/02/2009 Cervicalgia 10/16/2006 10/30/2018 Hyperlipidemia 08/04/2015 documented as of this encounter (statuses as of 04/26/2022) [facility] Narrative* Problem Noted Date Resolved Date Well adult exam 10/03/2016 04/12/2020 Overview: last done: 07/16/19. does not want colonoscopies. Other physical therapy 08/16/2010 0 Sprain of neck 07/30/2010 08/30/2010 Unspecified pruritic disorder 03/02/2009 Cervicalgia 10/16/2006 10/30/2018 Hyperlipidemia 08/04/2015 documented as of this encounter (statuses as of 04/28/2022) [facility]arrative* Problem Noted Date Resolved Date Well adult exam 10/03/2016 04/12/2020 Overview: last done: 07/16/19. does not want colonoscopies. Other physical therapy 08/16/2010 0 Sprain of neck 07/30/2010 08/30/2010 Unspecified pruritic disorder 03/02/2009 Cervicalgia 10/16/2006 10/30/2018 Hyperlipidemia 08/04/2015 documented as of this encounter (statuses as of 04/30/2022) [facility] Narrative* Problem Noted Date Resolved Date Well adult exam 10/03/2016 04/12/2020 Overview: last done: 07/16/19. does not want colonoscopies. Other physical therapy 08/16/2010 0 Sprain of neck 07/30/2010 08/30/2010 Unspecified pruritic disorder 03/02/2009 Cervicalgia 10/16/2006 10/30/2018 Hyperlipidemia 08/04/2015 documented as of this encounter (statuses as of 05/02/2022) [facility] Narrative* Problem Noted Date Resolved Date Well adult exam 10/03/2016 04/12/2020 Overview: last done: 07/16/19. does not want colonoscopies. Other physical therapy 08/16/2010 0 Sprain of neck 07/30/2010 08/30/2010 Unspecified pruritic disorder 03/02/2009 Cervicalgia 10/16/2006 10/30/2018 Hyperlipidemia 08/04/2015 documented as of this encounter (statuses as of 05/03/2022) [facility] Narrative* Problem Noted Date Resolved Date Well adult exam 10/03/2016 04/12/2020 Overview: last done: 07/16/19. does not want colonoscopies. Other physical therapy 08/16/2010 0 Sprain of neck 07/30/2010 08/30/2010 Unspecified pruritic disorder 03/02/2009 Cervicalgia 10/16/2006 10/30/2018 Hyperlipidemia 08/04/2015 documented as of this encounter (statuses as of 05/13/2022) [facility] Narrative* Problem Noted Date Resolved Date Well adult exam 10/03/2016 04/12/2020 Overview: last done: 07/16/19. does not want colonoscopies. Other physical therapy 08/16/2010 0 Sprain of neck 07/30/2010 08/30/2010 Unspecified pruritic disorder 03/02/2009 Cervicalgia 10/16/2006 10/30/2018 Hyperlipidemia 08/04/2015 documented as of this encounter (statuses as of 05/15/2022) [facility]arr[facility]* Problem Noted Date Resolved Date Well adult exam 10/03/2016 04/12/2020 Overview: last done: 07/16/19. does not want colonoscopies. Other physical therapy 08/16/2010 0 Sprain of neck 07/30/2010 08/30/2010 Unspecified pruritic disorder 03/02/2009 Cervicalgia 10/16/2006 10/30/2018 Hyperlipidemia 08/04/2015 documented as of this encounter (statuses as of 05/25/2022) [facility] Narrative* Problem Noted Date Resolved Date Well adult exam 10/03/2016 04/12/2020 Overview: last done: 07/16/19. does not want colonoscopies. Other physical therapy 08/16/2010 0 Sprain of neck 07/30/2010 08/30/2010 Unspecified pruritic disorder 03/02/2009 Cervicalgia 10/16/2006 10/30/2018 Hyperlipidemia 08/04/2015 documented as of this encounter (statuses as of 05/28/2022) [facility] Narrative* Problem Noted Date Resolved Date Well adult exam 10/03/2016 04/12/2020 Overview: last done: 07/16/19. does not want colonoscopies. Other physical therapy 08/16/2010 0 Sprain of neck 07/30/2010 08/30/2010 Unspecified pruritic disorder 03/02/2009 Cervicalgia 10/16/2006 10/30/2018 Hyperlipidemia 08/04/2015 documented as of this encounter (statuses as of 05/29/2022) [place] [address]-02-2017 History of Past illness Narrative* Problem Noted Date Resolved Date Well adult exam 10/03/2016 04/12/2020 Overview: last done: 07/16/19. does not want colonoscopies. Other physical therapy 08/16/2010 0 Sprain of neck 07/30/2010 08/30/2010 Unspecified pruritic disorder 03/02/2009 Cervicalgia 10/16/2006 10/30/2018 Hyperlipidemia 08/04/2015 documented as of this encounter (statuses as of 05/30/2022) [facility]arr[facility]* Problem Noted Date Resolved Date Well adult exam 10/03/2016 04/12/2020 Overview: last done: 07/16/19. does not want colonoscopies. Other physical therapy 08/16/2010 0 Sprain of neck 07/30/2010 08/30/2010 Unspecified pruritic disorder 03/02/2009 Cervicalgia 10/16/2006 10/30/2018 Hyperlipidemia 08/04/2015 documented as of this encounter (statuses as of 06/20/2022) [facility]arr[facility]* Problem Noted Date Resolved Date Well adult exam 10/03/2016 04/12/2020 Overview: last done: 07/16/19. does not want colonoscopies. Other physical therapy 08/16/2010 0 Sprain of neck 07/30/2010 08/30/2010 Unspecified pruritic disorder 03/02/2009 Cervicalgia 10/16/2006 10/30/2018 Hyperlipidemia 08/04/2015 documented as of this encounter (statuses as of 06/25/2022) [facility]* Problem Noted Date Resolved Date Well adult exam 10/03/2016 04/12/2020 Overview: last done: 07/16/19. does not want colonoscopies. Other physical therapy 08/16/2010 0 Sprain of neck 07/30/2010 08/30/2010 Unspecified pruritic disorder 03/02/2009 Cervicalgia 10/16/2006 10/30/2018 Hyperlipidemia 08/04/2015 documented as of this encounter (statuses as of 06/25/2022) [facility]arrative* Problem Noted Date Resolved Date Well adult exam 10/03/2016 04/12/2020 Overview: last done: 07/16/19. does not want colonoscopies. Other physical therapy 08/16/2010 0 Sprain of neck 07/30/2010 08/30/2010 Unspecified pruritic disorder 03/02/2009 Cervicalgia 10/16/2006 10/30/2018 Hyperlipidemia 08/04/2015 documented as of this encounter (statuses as of 06/26/2022) [facility]* Problem Noted Date Resolved Date Well adult exam 10/03/2016 04/12/2020 Overview: last done: 07/16/19. does not want colonoscopies. Other physical therapy 08/16/2010 0 Sprain of neck 07/30/2010 08/30/2010 Unspecified pruritic disorder 03/02/2009 Cervicalgia 10/16/2006 10/30/2018 Hyperlipidemia 08/04/2015 documented as of this encounter (statuses as of 06/27/2022) [facility]arr[facility]* Problem Noted Date Resolved Date Well adult exam 10/03/2016 04/12/2020 Overview: last done: 07/16/19. does not want colonoscopies. Other physical therapy 08/16/2010 0 Sprain of neck 07/30/2010 08/30/2010 Unspecified pruritic disorder 03/02/2009 Cervicalgia 10/16/2006 10/30/2018 Hyperlipidemia 08/04/2015 documented as of this encounter (statuses as of 07/02/2022) [facility]* Problem Noted Date Resolved Date Well adult exam 10/03/2016 04/12/2020 Overview: last done: 07/16/19. does not want colonoscopies. Other physical therapy 08/16/2010 0 Sprain of neck 07/30/2010 08/30/2010 Unspecified pruritic disorder 03/02/2009 Cervicalgia 10/16/2006 10/30/2018 Hyperlipidemia 08/04/2015 documented as of this encounter (statuses as of 07/02/2022) [facility]arr[facility]* Problem Noted Date Resolved Date Well adult exam 10/03/2016 04/12/2020 Overview: last done: 07/16/19. does not want colonoscopies. Other physical therapy 08/16/2010 0 Sprain of neck 07/30/2010 08/30/2010 Unspecified pruritic disorder 03/02/2009 Cervicalgia 10/16/2006 10/30/2018 Hyperlipidemia 08/04/2015 documented as of this encounter (statuses as of 07/05/2022) [facility] Narrative* Problem Noted Date Resolved Date Well adult exam 10/03/2016 04/12/2020 Overview: last done: 07/16/19. does not want colonoscopies. Other physical therapy 08/16/2010 0 Sprain of neck 07/30/2010 08/30/2010 Unspecified pruritic disorder 03/02/2009 Cervicalgia 10/16/2006 10/30/2018 Hyperlipidemia 08/04/2015 documented as of this encounter (statuses as of 07/10/2022) [facility]* Problem Noted Date Resolved Date Well adult exam 10/03/2016 04/12/2020 Overview: last done: 07/16/19. does not want colonoscopies. Other physical therapy 08/16/2010 0 Sprain of neck 07/30/2010 08/30/2010 Unspecified pruritic disorder 03/02/2009 Cervicalgia 10/16/2006 10/30/2018 Hyperlipidemia 08/04/2015 documented as of this encounter (statuses as of 07/10/2022) [facility]* Problem Noted Date Resolved Date Well adult exam 10/03/2016 04/12/2020 Overview: last done: 07/16/19. does not want colonoscopies. Other physical therapy 08/16/2010 0 Sprain of neck 07/30/2010 08/30/2010 Unspecified pruritic disorder 03/02/2009 Cervicalgia 10/16/2006 10/30/2018 Hyperlipidemia 08/04/2015 documented as of this encounter (statuses as of 07/11/2022) [facility]* Problem Noted Date Resolved Date Well adult exam 10/03/2016 04/12/2020 Overview: last done: 07/16/19. does not want colonoscopies. Other physical therapy 08/16/2010 0 Sprain of neck 07/30/2010 08/30/2010 Unspecified pruritic disorder 03/02/2009 Cervicalgia 10/16/2006 10/30/2018 Hyperlipidemia 08/04/2015 documented as of this encounter (statuses as of 07/12/2022) [facility]* Problem Noted Date Resolved Date Well adult exam 10/03/2016 04/12/2020 Overview: last done: 07/16/19. does not want colonoscopies. Other physical therapy 08/16/2010 0 Sprain of neck 07/30/2010 08/30/2010 Unspecified pruritic disorder 03/02/2009 Cervicalgia 10/16/2006 10/30/2018 Hyperlipidemia 08/04/2015 documented as of this encounter (statuses as of 07/29/2022) [facility]* Problem Noted Date Resolved Date Well adult exam 10/03/2016 04/12/2020 Overview: last done: 07/16/19. does not want colonoscopies. Other physical therapy 08/16/2010 0 Sprain of neck 07/30/2010 08/30/2010 Unspecified pruritic disorder 03/02/2009 Cervicalgia 10/16/2006 10/30/2018 Hyperlipidemia 08/04/2015 documented as of this encounter (statuses as of 07/30/2022) [facility]arr[facility]* Problem Noted Date Resolved Date Well adult exam 10/03/2016 04/12/2020 Overview: last done: 07/16/19. does not want colonoscopies. Other physical therapy 08/16/2010 0 Sprain of neck 07/30/2010 08/30/2010 Unspecified pruritic disorder 03/02/2009 Cervicalgia 10/16/2006 10/30/2018 Hyperlipidemia 08/04/2015 documented as of this encounter (statuses as of 08/05/2022) [facility] Narrative* Problem Noted Date Resolved Date Well adult exam 10/03/2016 04/12/2020 Overview: last done: 07/16/19. does not want colonoscopies. Other physical therapy 08/16/2010 0 Sprain of neck 07/30/2010 08/30/2010 Unspecified pruritic disorder 03/02/2009 Cervicalgia 10/16/2006 10/30/2018 Hyperlipidemia 08/04/2015 documented as of this encounter (statuses as of 08/07/2022) [facility] Narrative* Problem Noted Date Resolved Date Well adult exam 10/03/2016 04/12/2020 Overview: last done: 07/16/19. does not want colonoscopies. Other physical therapy 08/16/2010 0 Sprain of neck 07/30/2010 08/30/2010 Unspecified pruritic disorder 03/02/2009 Cervicalgia 10/16/2006 10/30/2018 Hyperlipidemia 08/04/2015 documented as of this encounter (statuses as of 08/23/2022) [facility] Narr[facility]* Problem Noted Date Resolved Date Well adult exam 10/03/2016 04/12/2020 Overview: last done: 07/16/19. does not want colonoscopies. Other physical therapy 08/16/2010 0 Sprain of neck 07/30/2010 08/30/2010 Unspecified pruritic disorder 03/02/2009 Cervicalgia 10/16/2006 10/30/2018 Hyperlipidemia 08/04/2015 documented as of this encounter (statuses as of 08/23/2022) [facility] Narrative* Problem Noted Date Resolved Date Well adult exam 10/03/2016 04/12/2020 Overview: last done: 07/16/19. does not want colonoscopies. Other physical therapy 08/16/2010 0 Sprain of neck 07/30/2010 08/30/2010 Unspecified pruritic disorder 03/02/2009 Cervicalgia 10/16/2006 10/30/2018 Hyperlipidemia 08/04/2015 documented as of this encounter (statuses as of 09/03/2022) [facility]arr[facility]* Problem Noted Date Resolved Date Well adult exam 10/03/2016 04/12/2020 Overview: last done: 07/16/19. does not want colonoscopies. Other physical therapy 08/16/2010 0 Sprain of neck 07/30/2010 08/30/2010 Unspecified pruritic disorder 03/02/2009 Cervicalgia 10/16/2006 10/30/2018 Hyperlipidemia 08/04/2015 documented as of this encounter (statuses as of 09/04/2022) [facility] Narrative* Problem Noted Date Resolved Date Well adult exam 10/03/2016 04/12/2020 Overview: last done: 07/16/19. does not want colonoscopies. Other physical therapy 08/16/2010 0 Sprain of neck 07/30/2010 08/30/2010 Unspecified pruritic disorder 03/02/2009 Cervicalgia 10/16/2006 10/30/2018 Hyperlipidemia 08/04/2015 documented as of this encounter (statuses as of 09/06/2022) [facility] Past illness Narrative* Problem Noted Date Resolved Date Well adult exam 10/03/2016 04/12/2020 Overview: last done: 07/16/19. does not want colonoscopies. Other physical therapy 08/16/2010 0 Sprain of neck 07/30/2010 08/30/2010 Unspecified pruritic disorder 03/02/2009 Cervicalgia 10/16/2006 10/30/2018 Hyperlipidemia 08/04/2015 documented as of this encounter (statuses as of 09/24/2022) [facility] Past illness Narrative* Problem Noted Date Resolved Date Well adult exam 10/03/2016 04/12/2020 Overview: last done: 07/16/19. does not want colonoscopies. Other physical therapy 08/16/2010 0 Sprain of neck 07/30/2010 08/30/2010 Unspecified pruritic disorder 03/02/2009 Cervicalgia 10/16/2006 10/30/2018 Hyperlipidemia 08/04/2015 documented as of this encounter (statuses as of 09/24/2022) [facility] [facility] History of Past illness Narrative* Problem Noted Date Resolved Date Well adult exam 10/03/2016 04/12/2020 Overview: last done: 07/16/19. does not want colonoscopies. Other physical therapy 08/16/2010 0 Sprain of neck 07/30/2010 08/30/2010 Unspecified pruritic disorder 03/02/2009 Cervicalgia 10/16/2006 10/30/2018 Hyperlipidemia 08/04/2015 documented as of this encounter (statuses as of 09/24/2022) [place] [id number] History of Past illness Narrative* Problem Noted Date Resolved Date Well adult exam 10/03/2016 04/12/2020 Overview: last done: 07/16/19. does not want colonoscopies. Other physical therapy 08/16/2010 0 Sprain of neck 07/30/2010 08/30/2010 Unspecified pruritic disorder 03/02/2009 Cervicalgia 10/16/2006 10/30/2018 Hyperlipidemia 08/04/2015 documented as of this encounter (statuses as of 10/02/2022) [facility] History of Past illness Narrative* Problem Noted Date Resolved Date Well adult exam 10/03/2016 04/12/2020 Overview: last done: 07/16/19. does not want colonoscopies. Other physical therapy 08/16/2010 0 Sprain of neck 07/30/2010 08/30/2010 Unspecified pruritic disorder 03/02/2009 Cervicalgia 10/16/2006 10/30/2018 Hyperlipidemia 08/04/2015 documented as of this encounter (statuses as of 10/08/2022) [facility] History of Past illness Narrative* Problem Noted Date Resolved Date Well adult exam 10/03/2016 04/12/2020 Overview: last done: 07/16/19. does not want colonoscopies. Other physical therapy 08/16/2010 0 Sprain of neck 07/30/2010 08/30/2010 Unspecified pruritic disorder 03/02/2009 Cervicalgia 10/16/2006 10/30/2018 Hyperlipidemia 08/04/2015 documented as of this encounter (statuses as of 10/15/2022) [facility] History of Past illness Narrative* Problem Noted Date Resolved Date Well adult exam 10/03/2016 04/12/2020 Overview: last done: 07/16/19. does not want colonoscopies. Other physical therapy 08/16/2010 0 Sprain of neck 07/30/2010 08/30/2010 Unspecified pruritic disorder 03/02/2009 Cervicalgia 10/16/2006 10/30/2018 Hyperlipidemia 08/04/2015 documented as of this encounter (statuses as of 10/24/2022) [facility] History of Past illness Narrative* Problem Noted Date Resolved Date Well adult exam 10/03/2016 04/12/2020 Overview: last done: 07/16/19. does not want colonoscopies. Other physical therapy 08/16/2010 0 Sprain of neck 07/30/2010 08/30/2010 Unspecified pruritic disorder 03/02/2009 Cervicalgia 10/16/2006 10/30/2018 Hyperlipidemia 08/04/2015 documented as of this encounter (statuses as of 11/05/2022) [facility] History of Past illness Narrative* Problem Noted Date Resolved Date Well adult exam 10/03/2016 04/12/2020 Overview: last done: 07/16/19. does not want colonoscopies. Other physical therapy 08/16/2010 0 Sprain of neck 07/30/2010 08/30/2010 Unspecified pruritic disorder 03/02/2009 Cervicalgia 10/16/2006 10/30/2018 Hyperlipidemia 08/04/2015 documented as of this encounter (statuses as of 11/05/2022) [facility] History of Past illness Narrative* Problem Noted Date Resolved Date Well adult exam 10/03/2016 04/12/2020 Overview: last done: 07/16/19. does not want colonoscopies. Other physical therapy 08/16/2010 0 Sprain of neck 07/30/2010 08/30/2010 Unspecified pruritic disorder 03/02/2009 Cervicalgia 10/16/2006 10/30/2018 Hyperlipidemia 08/04/2015 documented as of this encounter (statuses as of 11/12/2022) [facility] History of Past illness Narrative* Problem Noted Date Resolved Date Well adult exam 10/03/2016 04/12/2020 Overview: last done: 07/16/19. does not want colonoscopies. Other physical therapy 08/16/2010 0 Sprain of neck 07/30/2010 08/30/2010 Unspecified pruritic disorder 03/02/2009 Cervicalgia 10/16/2006 10/30/2018 Hyperlipidemia 08/04/2015 documented as of this encounter (statuses as of 11/14/2022) [facility] History of Past illness Narrative* Problem Noted Date Resolved Date Well adult exam 10/03/2016 04/12/2020 Overview: last done: 07/16/19. does not want colonoscopies. Other physical therapy 08/16/2010 0 Sprain of neck 07/30/2010 08/30/2010 Unspecified pruritic disorder 03/02/2009 Cervicalgia 10/16/2006 10/30/2018 Hyperlipidemia 08/04/2015 documented as of this encounter (statuses as of 11/21/2022) [facility] History of Past illness Narrative* Problem Noted Date Resolved Date Well adult exam 10/03/2016 04/12/2020 Overview: last done: 07/16/19. does not want colonoscopies. Other physical therapy 08/16/2010 0 Sprain of neck 07/30/2010 08/30/2010 Unspecified pruritic disorder 03/02/2009 Cervicalgia 10/16/2006 10/30/2018 Hyperlipidemia 08/04/2015 documented as of this encounter (statuses as of 11/28/2022) [facility] History of Past illness Narrative* Problem Noted Date Resolved Date Well adult exam 10/03/2016 04/12/2020 Overview: last done: 07/16/19. does not want colonoscopies. Other physical therapy 08/16/2010 0 Sprain of neck 07/30/2010 08/30/2010 Unspecified pruritic disorder 03/02/2009 Cervicalgia 10/16/2006 10/30/2018 Hyperlipidemia 08/04/2015 documented as of this encounter (statuses as of 11/29/2022) [facility] History of Past illness Narrative* Problem Noted Date Resolved Date Well adult exam 10/03/2016 04/12/2020 Overview: last done: 07/16/19. does not want colonoscopies. Other physical therapy 08/16/2010 0 Sprain of neck 07/30/2010 08/30/2010 Unspecified pruritic disorder 03/02/2009 Cervicalgia 10/16/2006 10/30/2018 Hyperlipidemia 08/04/2015 documented as of this encounter (statuses as of 01/08/2023) [facility] History of Past illness Narrative* Problem Noted Date Resolved Date Well adult exam 10/03/2016 04/12/2020 Overview: last done: 07/16/19. does not want colonoscopies. Other physical therapy 08/16/2010 0 Sprain of neck 07/30/2010 08/30/2010 Unspecified pruritic disorder 03/02/2009 Cervicalgia 10/16/2006 10/30/2018 Hyperlipidemia 08/04/2015 documented as of this encounter (statuses as of 02/04/2023) [facility] History of Past illness Narrative* Problem Noted Date Resolved Date Well adult exam 10/03/2016 04/12/2020 Overview: last done: 07/16/19. does not want colonoscopies. Other physical therapy 08/16/2010 0 Sprain of neck 07/30/2010 08/30/2010 Unspecified pruritic disorder 03/02/2009 Cervicalgia 10/16/2006 10/30/2018 Hyperlipidemia 08/04/2015 documented as of this encounter (statuses as of 02/24/2023) [facility] History of Past illness Narrative* Problem Noted Date Diagnosed Date Resolved Date Well adult exam 10/03/2016 04/12/2020 Overview: last done: 07/16/19. does not want colonoscopies. Other physical therapy 08/16/201008/30 Sprain of neck 07/30/2010 08/30/2010 Unspecified pruritic disorder 03/02/2009 04/12/2020 Cervicalgia 10/16/2006 10/30/2018 Hyperlipidemia 08/04/2015 documented as of this encounter (statuses as of 03/10/2023) [facility] History of Past illness Narrative* Problem Noted Date Diagnosed Date Resolved Date Well adult exam 10/03/2016 04/12/2020 Overview: last done: 07/16/19. does not want colonoscopies. Other physical therapy 08/16/201008/30 Sprain of neck 07/30/2010 08/30/2010 Unspecified pruritic disorder 03/02/2009 04/12/2020 Cervicalgia 10/16/2006 10/30/2018 Hyperlipidemia 08/04/2015 documented as of this encounter (statuses as of 04/01/2023) [facility]2017 History of Past illness Narrative* Problem Noted Date Diagnosed Date Resolved Date Well adult exam 10/03/2016 04/12/2020 Overview: last done: 07/16/19. does not want colonoscopies. Other physical therapy 08/16/201008/30 Sprain of neck 07/30/2010 08/30/2010 Unspecified pruritic disorder 03/02/2009 04/12/2020 Cervicalgia 10/16/2006 10/30/2018 Hyperlipidemia 08/04/2015 documented as of this encounter (statuses as of 04/02/2023) [facility] History of Past illness Narrative* Problem Noted Date Diagnosed Date Resolved Date Well adult exam 10/03/2016 04/12/2020 Overview: last done: 07/16/19. does not want colonoscopies. Other physical therapy 08/16/201008/30 Sprain of neck 07/30/2010 08/30/2010 Unspecified pruritic disorder 03/02/2009 04/12/2020 Cervicalgia 10/16/2006 10/30/2018 Hyperlipidemia 08/04/2015 documented as of this encounter (statuses as of 04/03/2023) [facility] History of Past illness Narrative* Problem Noted Date Diagnosed Date Resolved Date Well adult exam 10/03/2016 04/12/2020 Overview: last done: 07/16/19. does not want colonoscopies. Other physical therapy 08/16/201008/30 Sprain of neck 07/30/2010 08/30/2010 Unspecified pruritic disorder 03/02/2009 04/12/2020 Cervicalgia 10/16/2006 10/30/2018 Hyperlipidemia 08/04/2015 documented as of this encounter (statuses as of 04/05/2023) [facility] History of Past illness Narrative* Problem Noted Date Diagnosed Date Resolved Date Well adult exam 10/03/2016 04/12/2020 Overview: last done: 07/16/19. does not want colonoscopies. Other physical therapy 08/16/201008/30 Sprain of neck 07/30/2010 08/30/2010 Unspecified pruritic disorder 03/02/2009 04/12/2020 Cervicalgia 10/16/2006 10/30/2018 Hyperlipidemia 08/04/2015 documented as of this encounter (statuses as of 04/12/2023) [facility] History of Past illness Narrative* Problem Noted Date Diagnosed Date Resolved Date Well adult exam 10/03/2016 04/12/2020 Overview: last done: 07/16/19. does not want colonoscopies. Other physical therapy 08/16/201008/30 Sprain of neck 07/30/2010 08/30/2010 Unspecified pruritic disorder 03/02/2009 04/12/2020 Cervicalgia 10/16/2006 10/30/2018 Hyperlipidemia 08/04/2015 documented as of this encounter (statuses as of 05/18/2023) [facility]2017 History of Past illness Narrative* Problem Noted Date Diagnosed Date Resolved Date Well adult exam 10/03/2016 04/12/2020 Overview: last done: 07/16/19. does not want colonoscopies. Other physical therapy 08/16/201008/30 Sprain of neck 07/30/2010 08/30/2010 Unspecified pruritic disorder 03/02/2009 04/12/2020 Cervicalgia 10/16/2006 10/30/2018 Hyperlipidemia 08/04/2015 documented as of this encounter (statuses as of 06/19/2023) [facility] History of Past illness Narrative* Problem Noted Date Diagnosed Date Resolved Date Well adult exam 10/03/2016 04/12/2020 Overview: last done: 07/16/19. does not want colonoscopies. Other physical therapy 08/16/201008/30 Sprain of neck 07/30/2010 08/30/2010 Unspecified pruritic disorder 03/02/2009 04/12/2020 Cervicalgia 10/16/2006 10/30/2018 Hyperlipidemia 08/04/2015 documented as of this encounter (statuses as of 06/26/2023) [facility] History of Past illness Narrative* Problem Noted Date Diagnosed Date Resolved Date Well adult exam 10/03/2016 04/12/2020 Overview: last done: 07/16/19. does not want colonoscopies. Other physical therapy 08/16/201008/30 Sprain of neck 07/30/2010 08/30/2010 Unspecified pruritic disorder 03/02/2009 04/12/2020 Cervicalgia 10/16/2006 10/30/2018 Hyperlipidemia 08/04/2015 documented as of this encounter (statuses as of 06/27/2023) [facility] History of Past illness Narrative* Problem Noted Date Diagnosed Date Resolved Date Well adult exam 10/03/2016 04/12/2020 Overview: last done: 07/16/19. does not want colonoscopies. Other physical therapy 08/16/201008/30 Sprain of neck 07/30/2010 08/30/2010 Unspecified pruritic disorder 03/02/2009 04/12/2020 Cervicalgia 10/16/2006 10/30/2018 Hyperlipidemia 08/04/2015 documented as of this encounter (statuses as of 06/27/2023) [facility] History of Past illness Narrative* Problem Noted Date Diagnosed Date Resolved Date Well adult exam 10/03/2016 04/12/2020 Overview: last done: 07/16/19. does not want colonoscopies. Other physical therapy 08/16/201008/30 Sprain of neck 07/30/2010 08/30/2010 Unspecified pruritic disorder 03/02/2009 04/12/2020 Cervicalgia 10/16/2006 10/30/2018 Hyperlipidemia 08/04/2015 documented as of this encounter (statuses as of 07/06/2023) [facility] History of Past illness Narrative* Problem Noted Date Diagnosed Date Resolved Date Well adult exam 10/03/2016 04/12/2020 Overview: last done: 07/16/19. does not want colonoscopies. Other physical therapy 08/16/201008/30 Sprain of neck 07/30/2010 08/30/2010 Unspecified pruritic disorder 03/02/2009 04/12/2020 Cervicalgia 10/16/2006 10/30/2018 Hyperlipidemia 08/04/2015 documented as of this encounter (statuses as of 07/06/2023) [facility] History of Past illness Narrative* Problem Noted Date Diagnosed Date Resolved Date Well adult exam 10/03/2016 04/12/2020 Overview: last done: 07/16/19. does not want colonoscopies. Other physical therapy 08/16/201008/30 Sprain of neck 07/30/2010 08/30/2010 Unspecified pruritic disorder 03/02/2009 04/12/2020 Cervicalgia 10/16/2006 10/30/2018 Hyperlipidemia 08/04/2015 documented as of this encounter (statuses as of 07/06/2023) [facility] History of Past illness Narrative* Problem Noted Date Diagnosed Date Resolved Date Well adult exam 10/03/2016 04/12/2020 Overview: last done: 07/16/19. does not want colonoscopies. Other physical therapy 08/16/201008/30 Sprain of neck 07/30/2010 08/30/2010 Unspecified pruritic disorder 03/02/2009 04/12/2020 Cervicalgia 10/16/2006 10/30/2018 Hyperlipidemia 08/04/2015 documented as of this encounter (statuses as of 10/10/2023) [facility] History of Past illness Narrative* Problem Noted Date Diagnosed Date Resolved Date Well adult exam 10/03/2016 04/12/2020 Overview: last done: 07/16/19. does not want colonoscopies. Other physical therapy 08/16/201008/30 Sprain of neck 07/30/2010 08/30/2010 Unspecified pruritic disorder 03/02/2009 04/12/2020 Cervicalgia 10/16/2006 10/30/2018 Hyperlipidemia 08/04/2015 documented as of this encounter (statuses as of 10/11/2023) [facility] History of Past illness Narrative* Problem Noted Date Diagnosed Date Resolved Date Well adult exam 10/03/2016 04/12/2020 Overview: last done: 07/16/19. does not want colonoscopies. Other physical therapy 08/16/201008/30 Sprain of neck 07/30/2010 08/30/2010 Unspecified pruritic disorder 03/02/2009 04/12/2020 Cervicalgia 10/16/2006 10/30/2018 Hyperlipidemia 08/04/2015 documented as of this encounter (statuses as of 10/14/2023) [facility]2017 History of Past illness Narrative* Problem Noted Date Diagnosed Date Resolved Date Well adult exam 10/03/2016 04/12/2020 Overview: last done: 07/16/19. does not want colonoscopies. Other physical therapy 08/16/201008/30 Sprain of neck 07/30/2010 08/30/2010 Unspecified pruritic disorder 03/02/2009 04/12/2020 Cervicalgia 10/16/2006 10/30/2018 Hyperlipidemia 08/04/2015 documented as of this encounter (statuses as of 10/16/2023) [address]02-2017 History of Past illness Narrative* Problem Noted Date Diagnosed Date Resolved Date Well adult exam 10/03/2016 04/12/2020 Overview: last done: 07/16/19. does not want colonoscopies. Other physical therapy 08/16/201008/30 Sprain of neck 07/30/2010 08/30/2010 Unspecified pruritic disorder 03/02/2009 04/12/2020 Cervicalgia 10/16/2006 10/30/2018 Hyperlipidemia 08/04/2015 documented as of this encounter (statuses as of 10/23/2023) [facility] History of Past illness Narrative* Problem Noted Date Diagnosed Date Resolved Date Well adult exam 10/03/2016 04/12/2020 Overview: last done: 07/16/19. does not want colonoscopies. Other physical therapy 08/16/201008/30 Sprain of neck 07/30/2010 08/30/2010 Unspecified pruritic disorder 03/02/2009 04/12/2020 Cervicalgia 10/16/2006 10/30/2018 Hyperlipidemia 08/04/2015 documented as of this encounter (statuses as of 10/23/2023) [facility] History of Past illness Narrative* Problem Noted Date Diagnosed Date Resolved Date Well adult exam 10/03/2016 04/12/2020 Overview: last done: 07/16/19. does not want colonoscopies. Other physical therapy 08/16/201008/30 Sprain of neck 07/30/2010 08/30/2010 Unspecified pruritic disorder 03/02/2009 04/12/2020 Cervicalgia 10/16/2006 10/30/2018 Hyperlipidemia 08/04/2015 documented as of this encounter (statuses as of 10/24/2023) [facility] History of Past illness Narrative* Problem Noted Date Diagnosed Date Resolved Date Well adult exam 10/03/2016 04/12/2020 Overview: last done: 07/16/19. does not want colonoscopies. Other physical therapy 08/16/201008/30 Sprain of neck 07/30/2010 08/30/2010 Unspecified pruritic disorder 03/02/2009 04/12/2020 Cervicalgia 10/16/2006 10/30/2018 Hyperlipidemia 08/04/2015 documented as of this encounter (statuses as of 10/30/2023) [facility] History of Past illness Narrative* Problem Noted Date Diagnosed Date Resolved Date Well adult exam 10/03/2016 04/12/2020 Overview: last done: 07/16/19. does not want colonoscopies. Other physical therapy 08/16/201008/30 Sprain of neck 07/30/2010 08/30/2010 Unspecified pruritic disorder 03/02/2009 04/12/2020 Cervicalgia 10/16/2006 10/30/2018 Hyperlipidemia 08/04/2015 documented as of this encounter (statuses as of 12/05/2023) [facility] Martina [facility] December 04, 2023 1:04pm Note Date/Time December 04, 2023 1:04 pm [facility] Medical Records Department [address] [place] [address] Instructions for Home/Discharge Instructions 12/04/23 1300 MR#: [id number] Acct: [id number] Name: MICHAEL BATES JrMukesh Rep #:[id number] : 1955 68 From: Martina Cr MD PCP: Dr. Nadir Grady MD Status:ADM JASON Discharge Instructions Diet Discharge Diet: Low fat / Low cholesterol Activity Discharge Activity: Return to Normal Activity Weight Bearing Status: Weight bearing as tolerated Dressing / Incision Call your doctor if you observe: Fever of 101 or Higher, Shortness of breath, Dizziness, Swelling in the ankles and Chest pain Follow Up Care Test Results: Test results from this visit will be discussed in further detail at your follow- up appointment, if applicable. Discharge Plan Admission Admit Date/Time: 12/03/23 17:42 Primary Reason for Your Visit: chest pain Attending Provider: Martina Cr Primary Care Provider: Nadir Grady Consulting Providers: Gildardo Walton Instructions Patient Instructions: ED Chest Pain, Noncardiac Discharge Orders/Prescriptions Prescriptions: Continued omega 2-brb-ilr-fish oil [Fish Oil] 1,000 mg (120 mg-180 mg) capsule 1,000 mg PO QDAY Patient Comments: 1200 mg PO QDAY metformin 500 mg tablet extended release 24 hr 1,000 mg PO BID atorvastatin 80 mg tablet 40 mg PO DAILY Hold Instructions: itching all over, no rash Galzin 50 mg (zinc) capsule 50 mg PO DAILY ranolazine 1,000 mg tablet extended release 12 hr 1,000 mg PO BID Qty: 60 11RF Brilinta 90 mg tablet 90 mg PO BID Qty: 60 11RF aspirin 81 MG tablet 81 mg PO DAILY@0800 amlodipine 5 mg tablet 5 mg PO DAILY Qty: 10 0RF pioglitazone 45 mg tablet 45 mg PO DAILY clopidogrel 75 mg tablet 75 mg PO DAILY pantoprazole 40 mg tablet,delayed release (DR/EC) 40 mg PO DAILY ferrous sulfate 325 mg (65 mg iron) tablet 325 mg PO BID nitroglycerin 0.4 mg tablet, sublingual 0.4 mg SUBLINGUAL Q5M PRN (Reason: Chest Pain) Qty: 25 6RF Rx Instructions: take one tablet every 5-15 to not exceed 3 tablets Referrals / Follow Up: Nadir Grady MD [Primary Care Provider] - Within 1 Week Disposition Disposition (needs filled in before D/C Order can be placed): Home, Self Care 12/04/23 1304<Electronically signed by Martina Cr MD>Martina rC MD CC: Dr. Nadir Grady MD; Dr. Gildardo Walton MD ~ Signed [facility] Work Phone: Evaluation note* Diagnosis Onset Date Resolution Status Bilateral carotid artery stenosis acute Syncope acute Essential (primary) hypertension chronic Hyperlipidemia chronic [facility] Work Phone: Evaluation note* Diagnosis Type 2 diabetes mellitus without complication, without long-term current use of insulin (HCC) documented in this encounter [facility] note* Diagnosis Syncope, unspecified syncope type- Primary Orthostatic hypotension Facial numbness Disturbance of skin sensation Injury of head, sequela Chronic post-traumatic headache, not intractable Chronic post-traumatic headache documented in this encounter [facility] note* Diagnosis Orthostatic hypotension- Primary documented in this encounter [facility] note* Diagnosis Mixed hyperlipidemia [facility] Diagnosis Injury of head, initial encounter [facility] Diagnosis Injury of head, initial encounter [facility]* Diagnosis Chest pain, unspecified type [facility] Diagnosis Situational depression- Primary Adjustment disorder with depressed mood Panic disorder Panic disorder without agoraphobia [facility] Diagnosis Orthostatic hypotension- Primary Occipital neuralgia of right side Neuropathy Mononeuritis of unspecified site Syncope and collapse [facility] Diagnosis Encounter for immunization- Primary Need for other specified prophylactic vaccination against single bacterial disease Type 2 diabetes mellitus with diabetic neuropathy, without long-term current use of insulin ([facility]) Essential hypertension, benign Mixed hyperlipidemia Coronary atherosclerosis due to lipid rich plaque GERD without esophagitis Esophageal reflux Carotid stenosis, asymptomatic, bilateral Migraine variant Variants of migraine, not elsewhere classified, without mention of intractable migraine without mention of status migrainosus Adjustment disorder with depressed mood [facility] Diagnosis Hyponatremia- Primary Hyposmolality and/or hyponatremia [facility] Diagnosis Injury of head, initial encounter- Primary LOC (loss of consciousness) ([facility]) Other alteration of consciousness [facility] Diagnosis Type 2 diabetes mellitus without complication, without long-term current use of insulin (HCC) Mixed hyperlipidemia [facility] Diagnosis Abnormal weight loss- Primary Loss of weight Muscle mass Other musculoskeletal symptoms referable to limbs Intractable chronic post-traumatic headache Chronic post-traumatic headache Neuropathy Mononeuritis of unspecified site Situational depression Adjustment disorder with depressed mood Fatigue, unspecified type Myalgia Mylagia and myositis, unspecified [facility] Diagnosis Anemia, unspecified type- Primary Hyperglycemia Other abnormal glucose Uncontrolled type 2 diabetes mellitus with hyperglycemia ([facility]) Blood sugar increased Other abnormal glucose [facility] Diagnosis Iron deficiency anemia, unspecified iron deficiency anemia type- Primary [facility]* Diagnosis Anemia, unspecified type documented [facility] Diagnosis Abnormal weight loss- Primary [facility] of [facility] Diagnosis Panic disorder Panic disorder without agoraphobia Situational depression Adjustment disorder with depressed mood Adjustment disorder with depressed mood [facility] Diagnosis Bladder wall thickening- Primary Other specified disorders of bladder Abnormal weight loss Loss of weight [facility]* Diagnosis Type 2 diabetes mellitus with diabetic neuropathy, without long-term current use of insulin (HCC)- Primary [facility]* Diagnosis Bladder wall thickening- Primary Other specified disorders of bladder Benign non-nodular prostatic hyperplasia without lower urinary tract symptoms [facility]* Diagnosis Dizziness- Primary Dizziness and giddiness Tremor Abnormal involuntary movements Hypotension, unspecified hypotension type Panic disorder Panic disorder without agoraphobia Situational depression Adjustment disorder with depressed mood Atypical chest pain Other chest pain Iron deficiency anemia, unspecified iron deficiency anemia type [facility]* Diagnosis Foot injury, left, initial encounter- Primary [facility]* Diagnosis Syncope, unspecified syncope type- Primary Orthostatic hypotension [facility]* Diagnosis Type 2 diabetes mellitus with diabetic neuropathy, without long-term current use of insulin (HCC)- Primary Essential hypertension, benign [facility]* Diagnosis Iron deficiency anemia, unspecified iron deficiency anemia type- Primary Anemia, unspecified type [facility]* Diagnosis Long-segment Santos's esophagus- Primary Hiatal hernia Diaphragmatic hernia without mention of obstruction or gangrene Diverticulosis Diverticulosis of colon (without mention of hemorrhage) Other gastritis without bleeding [facility]* Diagnosis Rhus dermatitis- Primary Contact dermatitis and other eczema due to plants (except food) Syncope, unspecified syncope type- Primary Orthostatic hypotension [facility]* Diagnosis Syncope, unspecified syncope type- Primary Orthostatic hypotension [facility] Medicare annual wellness visit, subsequent- [...] esophagitis Esophageal reflux [facility]* Diagnosis Elevated PSA- Primary Elevated prostate specific antigen (PSA) Uncontrolled type 2 diabetes mellitus with hyperglycemia (HCC) documented [facility]* Diagnosis Type 2 diabetes mellitus without complication, without long-term current use of insulin (HCC) documented [facility]* Diagnosis Panic disorder- Primary Panic disorder without agoraphobia Syncope, unspecified syncope type- Primary Orthostatic hypotension [facility]* Diagnosis Rash- Primary Rash and other nonspecific skin eruption [facility]* Diagnosis Mouth sores- Primary Other and unspecified diseases of the oral soft tissues documented [facility]* Diagnosis Patient left without being seen- Primary Surgical or other procedure not carried out because of patient's decision SOB (shortness of breath) Shortness of breath [facility]* Diagnosis Mouth pain- Primary Other and unspecified diseases of the oral soft tissues documented [facility]* Diagnosis Abnormal weight loss Loss of weight documented [facility] this [facility]* Diagnosis Abnormal weight loss Loss of weight [facility] Diagnosis Onset Date Resolution Status Acute electrocardiogram changes acute Angina at rest acute Chest pain acute History of CAD (coronary artery disease) acute Hx of diabetes insipidus acu te Unstable angina acute [facility] Work Phone: Evaluation note* Diagnosis Onset Date Resolution Status Acute electrocardiogram changes acute Angina at rest acute Chest pain acute History of CAD (coronary artery disease) acute Hx of diabetes insipidus acu te Unstable angina acute Hyperlipidemia chronic Hypertension chronic Type 2 diabetes mellitus [facility] Work Phone: Evaluation note* Diagnosis Type 2 diabetes mellitus with diabetic neuropathy, without long-term current use of insulin (HCC) documented [facility]* Diagnosis Lip swelling- Primary Diseases of lips documented [facility]* Diagnosis Onset Date Resolution Status Acute electrocardiogram changes resolved Angina at rest resolved Chest pain resolved Unstable angina resolved [facility] Work Phone: Evaluation note* Diagnosis Mixed hyperlipidemia documented [facility] this [facility]* Diagnosis Left forearm pain- Primary Pain in limb Hand pain, left Pain in limb Contusion of left forearm, initial encounter Left forearm pain Pain in limb Hand pain, left Pain in limb [facility]* Diagnosis Anemia of chronic disease Anemia of other chronic disease [facility]* Diagnosis Type 2 diabetes mellitus without complication, without long-term current use of insulin (HCC) [facility]* Diagnosis Mixed hyperlipidemia- Primary Need for vaccination Need for prophylactic vaccination and inoculation against unspecified single disease Uncontrolled type 2 diabetes mellitus without complication, without long-term current use of insulin Coronary atherosclerosis due to lipid rich plaque Gastroesophageal reflux disease without esophagitis Esophageal reflux GERD without esophagitis- Primary Esophageal reflux Mixed hyperlipidemia [facility]* Diagnosis Mixed hyperlipidemia- Primary Need for vaccination Need for prophylactic vaccination and inoculation against unspecified single disease Uncontrolled type 2 diabetes mellitus without complication, without long-term current use of insulin Coronary atherosclerosis due to lipid rich plaque Gastroesophageal reflux disease without esophagitis Esophageal reflux Left forearm pain Pain in limb Hand pain, left Pain in limb [facility]* Diagnosis Mixed hyperlipidemia- Primary Need for vaccination Need for prophylactic vaccination and inoculation against unspecified single disease Uncontrolled type 2 diabetes mellitus without complication, without long-term current use of insulin Coronary atherosclerosis due to lipid rich plaque Gastroesophageal reflux disease without esophagitis Esophageal reflux Foot injury, left, initial encounter [facility] Diagnosis Mixed hyperlipidemia- Primary Need for vaccination Need for prophylactic vaccination and inoculation against unspecified single disease Uncontrolled type 2 diabetes mellitus without complication, without long-term current use of insulin Coronary atherosclerosis due to lipid rich plaque Gastroesophageal reflux disease without esophagitis Esophageal reflux Abnormal weight loss Loss of weight [facility] this [facility]* Diagnosis Mixed hyperlipidemia- Primary Need for vaccination Need for prophylactic vaccination and inoculation against unspecified single disease Uncontrolled type 2 diabetes mellitus without complication, without long-term current use of insulin Coronary atherosclerosis due to lipid rich plaque Gastroesophageal reflux disease without esophagitis Esophageal reflux SOB (shortness of breath) Shortness of breath Chest pain, unspecified type [facility]* Diagnosis Mixed hyperlipidemia- Primary Need for vaccination Need for prophylactic vaccination and inoculation against unspecified single disease Uncontrolled type 2 diabetes mellitus without complication, without long-term current use of insulin Coronary atherosclerosis due to lipid rich plaque Gastroesophageal reflux disease without esophagitis Esophageal reflux Acute pain of right shoulder [facility]* Diagnosis Mixed hyperlipidemia- Primary Need for vaccination Need for prophylactic vaccination and inoculation against unspecified single disease Uncontrolled type 2 diabetes mellitus without complication, without long-term current use of insulin Coronary atherosclerosis due to lipid rich plaque Gastroesophageal reflux disease without esophagitis Esophageal reflux Medicare annual wellness visit, subsequent- Primary [facility] Advance directive discussed with patient Other specified counseling Type 2 diabetes mellitus with diabetic neuropathy, without long-term current use of insulin (HCC) Type 2 diabetes mellitus without complication, without long-term current use of insulin (HCC) Essential hypertension, benign Uncontrolled type 2 diabetes mellitus with hyperglycemia (HCC) Mixed hyperlipidemia Coronary atherosclerosis due to lipid rich plaque Adjustment disorder with depressed mood Anemia of chronic disease Anemia of other chronic disease Screening for depression Encounter for screening examination for other mental health and behavioral disorders Weight loss Loss of weight documented in this encounter [facility] note* Diagnosis Mixed hyperlipidemia- Primary Need for vaccination Need for prophylactic vaccination and inoculation against unspecified single disease Uncontrolled type 2 diabetes mellitus without complication, without long-term current use of insulin Coronary atherosclerosis due to lipid rich plaque Gastroesophageal reflux disease without esophagitis Esophageal reflux Elevated alkaline phosphatase level- Primary Other nonspecific abnormal serum enzyme levels Type 2 diabetes mellitus with diabetic neuropathy, without long-term current use of insulin ([facility]) documented in this encounter [facility] note* Diagnosis Mixed hyperlipidemia- Primary Need for vaccination Need for prophylactic vaccination and inoculation against unspecified single disease Uncontrolled type 2 diabetes mellitus without complication, without long-term current use of insulin Coronary atherosclerosis due to lipid rich plaque Gastroesophageal reflux disease without esophagitis Esophageal reflux Wrist pain, right- Primary Pain in joint, forearm Wrist pain, right Pain in joint, forearm documented [facility]* Diagnosis Mixed hyperlipidemia- Primary Need for vaccination Need for prophylactic vaccination and inoculation against unspecified single disease Uncontrolled type 2 diabetes mellitus without complication, without long-term current use of insulin Coronary atherosclerosis due to lipid rich plaque Gastroesophageal reflux disease without esophagitis Esophageal reflux Wrist pain, right Pain in joint, forearm [facility] Diagnosis Mixed hyperlipidemia- Primary Need for vaccination Need for prophylactic vaccination and inoculation against unspecified single disease Uncontrolled type 2 diabetes mellitus without complication, without long-term current use of insulin Coronary atherosclerosis due to lipid rich plaque Gastroesophageal reflux disease without esophagitis Esophageal reflux Adverse effect of [id number] medication, initial encounter- Primary [facility]* Diagnosis Mixed hyperlipidemia- Primary Need for vaccination Need for prophylactic vaccination and inoculation against unspecified single disease Uncontrolled type 2 diabetes mellitus without complication, without long-term current use of insulin Coronary atherosclerosis due to lipid rich plaque Gastroesophageal reflux disease without esophagitis Esophageal reflux Type 2 diabetes mellitus without complication, without long-term current use of insulin (HCC) documented [facility] this [facility]* Diagnosis Mixed hyperlipidemia- Primary Need for vaccination Need for prophylactic vaccination and inoculation against unspecified single disease Uncontrolled type 2 diabetes mellitus without complication, without long-term current use of insulin Coronary atherosclerosis due to lipid rich plaque Gastroesophageal reflux disease without esophagitis Esophageal reflux S/P drug eluting coronary stent placement- Primary Postsurgical percutaneous transluminal coronary angioplasty status Stable angina (HCC) Other and unspecified angina pectoris Abnormal chest x-ray Other nonspecific abnormal finding of lung field Hypersomnolence Hypersomnia, unspecified Snores Other dyspnea and respiratory abnormality Sleep initiation dysfunction Insomnia, unspecified Bilateral occipital neuralgia Other syndromes affecting cervical region Cervicogenic headache Headache Abnormal chest x-ray Other nonspecific abnormal finding of lung field [facility]* Diagnosis Mixed hyperlipidemia- Primary Need for vaccination Need for prophylactic vaccination and inoculation against unspecified single disease Uncontrolled type 2 diabetes mellitus without complication, without long-term current use of insulin Coronary atherosclerosis due to lipid rich plaque Gastroesophageal reflux disease without esophagitis Esophageal reflux Abnormal chest x-ray Other nonspecific abnormal finding of lung field documented [facility] this [facility]* Diagnosis Mixed hyperlipidemia- Primary Need for vaccination Need for prophylactic vaccination and inoculation against unspecified single disease Uncontrolled type 2 diabetes mellitus without complication, without long-term current use of insulin Coronary atherosclerosis due to lipid rich plaque Gastroesophageal reflux disease without esophagitis Esophageal reflux Thunderclap headache- Primary Headache New onset headache Headache Thunderclap headache Headache New onset headache Headache documented [facility] this [facility]* Diagnosis Mixed hyperlipidemia- Primary Need for vaccination Need for prophylactic vaccination and inoculation against unspecified single disease Uncontrolled type 2 diabetes mellitus without complication, without long-term current use of insulin Coronary atherosclerosis due to lipid rich plaque Gastroesophageal reflux disease without esophagitis Esophageal reflux [place]clap headache Headache New onset headache Headache [facility] Diagnosis Mixed hyperlipidemia- Primary Need for vaccination Need for prophylactic vaccination and inoculation against unspecified single disease Uncontrolled type 2 diabetes mellitus without complication, without long-term current use of insulin Coronary atherosclerosis due to lipid rich plaque Gastroesophageal reflux disease without esophagitis Esophageal reflux Dream enactment behavior- Primary Snores Other dyspnea and respiratory abnormality RLS (restless legs syndrome) Restless legs syndrome (RLS) Non-restorative sleep Other sleep disturbances Excessive daytime sleepiness Chronic insomnia Insomnia, unspecified [facility]* Diagnosis Mixed hyperlipidemia- Primary Need for vaccination Need for prophylactic vaccination and inoculation against unspecified single disease Uncontrolled type 2 diabetes mellitus without complication, without long-term current use of insulin Coronary atherosclerosis due to lipid rich plaque Gastroesophageal reflux disease without esophagitis Esophageal reflux Diabetic eye exam (HCC)- Primary Type II or unspecified type diabetes mellitus without mention of complication, not stated as uncontrolled [facility] Diagnosis Mixed hyperlipidemia- Primary Need for vaccination Need for prophylactic vaccination and inoculation against unspecified single disease Uncontrolled type 2 diabetes mellitus without complication, without long-term current use of insulin Coronary atherosclerosis due to lipid rich plaque Gastroesophageal reflux disease without esophagitis Esophageal reflux Obstructive sleep apnea- Primary Obstructive sleep apnea (adult) (pediatric) Insomnia, unspecified type RLS (restless legs syndrome) Restless legs syndrome (RLS) Dream enactment behavior Non-restorative sleep Other sleep disturbances Frequent nocturnal awakening Other sleep disturbances [facility] Diagnosis Mixed hyperlipidemia- Primary Need for vaccination Need for prophylactic vaccination and inoculation against unspecified single disease Uncontrolled type 2 diabetes mellitus without complication, without long-term current use of insulin Coronary atherosclerosis due to lipid rich plaque Gastroesophageal reflux disease without esophagitis Esophageal reflux Anemia of chronic disease Anemia of other chronic disease [facility] Diagnosis Mixed hyperlipidemia- Primary Need for vaccination Need for prophylactic vaccination and inoculation against unspecified single disease Uncontrolled type 2 diabetes mellitus without complication, without long-term current use of insulin Coronary atherosclerosis due to lipid rich plaque Gastroesophageal reflux disease without esophagitis Esophageal reflux Type 2 diabetes mellitus without complication, without long-term current use of insulin (HCC) [facility] Author Gildardo Anton [facility] October 09, 2023 9:01pm Note Date/Time October 09, 2023 8 :07pm [facility] Medical Records Department [address] [place] [address] H&P Exam - Hospitalist 10/09/232004 MR#: [id number] Acct: [id number] Name: MICHAEL BATES Jr. Rep #:[id number] : 1955 68 From: Gildardo Escoto PCP: Dr. Nadir Grady MD Status:ADM IN Location: [place] [id number] HPI - General General Date of Admission: 10/09/23 Date of Service: 10/09/23 Chief Complaint: Worsening of chest pain/pressure chest pain today along with shortness of breath HPI Narrative MICHAEL BATES, is a 68 M with history of chronic CAD status post multiple stents chest pain what he describes as pressure in the middle with radiation to left hand along with numbness and tingling. He states he has exertional chest pressure every time he exert for last few years along with shortness of breath. But today while he was cleaning his garage he felt chest pressure manage initially went away after resting. But when he was resting inside chest pressure came back with shortness of breath in addition to left arm and interscapular area. He also felt dizzy lightheaded but not diaphoretic. Patient last PCI and stent was in July 22, 2021. Patient did not had syncope recently but has history of syncope in October 2021 when had a loop recorder in November 2021. Patient last stress test in June 2023 was normal pharmacological perfusion stress test with preserved EF. Twelve-lead EKG done in the ED reviewed and shows ST depression in V5 V6 as compared to previous EKG of 20 Jan 2023. Otherwise sinus tachycardia 105 bpm. Patient blood pressure was high and sinus tachycardic 121 bpm came in ED. Currently it is better. Vitals labs chest x-ray reviewed and discussed assessment and plan. [facility] Medical History Atherosclerotic heart disease of [place] coronary artery without angina pectoris Bilateral carotid artery stenosis BPH (benign prostatic hyperplasia) COVID-19 (06/2021) DDD (degenerative disc disease) Elevated LFTs Essential (primary) hypertension Hyperlipidemia Sciatica Syncope (10/2021) Tremor of both hands Type 2 diabetes mellitus Home Medications aspirin 81 mg tablet,delayed release 81 mg PO DAILY@0800 heart health 09/13/13 [History Last Taken 02/11/22] omega 2-sig-edm-fish oil 1,000 mg (120 mg-180 mg) capsule (Fish Oil) 1,000 mg POQDAY supplement 01/06/18 [History Last Taken 12/29/21] metformin 500 mg tablet,extended release 24 hr 500 mg PO BID 07/25/20 [History Last Taken 02/10/22] lorazepam 0.5 mg tablet 0.5 mg PO BID PRN Anxiety 05/23/22 [History Last Taken Unknown] pioglitazone 30 mg tablet (Actos) 30 mg PO DAILY 06/19/22 [History Last Taken Unknown] ferrous sulfate 325 mg (65 mg iron) tablet 325 mg PO DAILY 06/28/22 [History Last Taken Unknown] pantoprazole 40 mg tablet,delayed release (Protonix) 40 mg PO DAILY #30 tabs 07/16/22 [Rx Last Taken Unknown] nitroglycerin 0.4 mg sublingual tablet 0.4 mg sublingual Q5M PRN Chest Pain #25 tabs 09/03/22 [Rx Last Taken Unknown] fluticasone propionate 50 mcg/actuation nasal spray,suspension 1 spray intranasal BID 10/23/22 [History Last Taken Unknown] ranolazine 500 mg tablet,extended release,12 hr 500 mg PO BID #60 tabs 05/15/23 [Rx Last Taken Unknown] atorvastatin 80 mg tablet 80 mg PO DAILY cholesterol #90 tabs 07/02/23 [Rx Last Taken Unknown] clopidogrel 75 mg tablet (Plavix) 75 mg PO DAILY #90 tabs 07/02/23 [Rx Last Taken Unknown] Allergy/AdvReac Type Severity Reaction Status Date / Time fludrocortisone Allergy Severe ANGIOEDEMA Verified 10/09/23 18:11 [From [facility]] perfume AdvReac Other Verified 10/09/23 18:11 Family History Sister CAD (coronary artery disease) CVA (cerebral vascular accident) Diabetes Myocardial infarction Hx of CABG Mother Cancer Lung CA Surgical History History of cataract surgery History of coronary artery stent placement (07/23/21) History of hand surgery History of left heart catheterization (02/11/22) History of loop recorder (12/13/21) Hx of appendectomy Social History Smoking Status: Never smoker alcohol intake: never substance use type: does not use caffeine: No what type of physical activity do you participate in: none seatbelt use: always do you feel safe at home: Yes ROS ROS Narrative Constitutional: Reports fatigue and weakness. No fever. HEENT: Reports systems reviewed and no addt'l complaints, except as documented Respiratory/Chest: Exertional dyspnea along with chest pressure CVS: As described in HPI. Gastrointestinal: Denies coffee ground emesis, hematemesis or vomiting Genitourinary: Denies burning urination or new urinary tract symptoms Musculoskeletal: Denies acute joint pain or limited range of motion. No acute injury Neurologic: Denies seizure-like symptoms. skin: No ulcer. No rash Endocrinology: Reports systems reviewed and no addt'l complaints, except as documented Hematologic/Lymphatic: Reports systems reviewed and no addt'l complaints, exceptas documented Rest 14 ROS are negative except as mentioned in HPI Vital Signs Vital Signs Vital Signs: 10/09/23 18:10 10/09/23 18:49 10/09/23 19:02 Temperature 97.4 F L Temperature Source Temporal Pulse Rate 112 H 96 Respiratory Rate 18 Respiratory Effort Normal Non-Labored Blood Pressure 191/81 H 138/73 H Blood Pressure Mean 117 94 Pulse Ox 95 Oxygen Delivery Method Room Air Weight Weight: 241 lb 10.026 oz Body Mass Index (BMI) 34.7 Physical Exam Narrative General: Alert, Oriented x3, Cooperative HEENT: Atraumatic, PERRLA, EOMI, Normocephalic Oral: No Gingival or Mucosal Lesions/ Ulcerations Neck: Supple, No JVD, Negative Carotid Bruits Chest wall/Lungs: Air entry diminished in bilateral lung bases. No crepitation/rhonchi Cardiovascular: Regular rate, Regular Rhythm, Normal S1, Normal S2, systolic murmur present over right second ICS and B and cardiac apex Abdomen: Bowel Sounds Present, Soft, Non Tender, Non-Distended : No dysuria. No renal angle tenderness. No suprapubic tenderness. Extremities: No edema, Capillary Refill Less than 3 Seconds Skin: No rashes, No breakdown Musculoskeletal: No Tenderness to Palpation of Joints or Extremities. ROM full. Neurological: Cranial nerves II-XII grossly intact, DTR 2+/4. No acute focal neurological deficit. Psych/Mental Status: Normal Affect, Appropriate. Results Lab / Micro Data 10/09/23 18:30 10/09/23 18:30 Labs: Laboratory Results - last 24 hr 10/09/23 18:30: WBC 7.1, RBC 3.87 L, Hgb 11.5 L, Hct 35.0 L, MCV 90.4, MCH 29.7,MCHC 32.9, RDW Std Deviation 42.6, RDW Coeff of Megan 13.0, Plt Count 210, MPV 9.5, Immature Gran % (Auto) 0.400, Neut % (Auto) 63.1, Lymph % (Auto) 25.4, [place]% (Auto) 7.7, Eos % (Auto) 2.7, Baso % (Auto) 0.7, Absolute Neuts (auto) 4.5, Absolute Lymphs (auto) 1.81, Nucleated RBC % 0, PT 12.4, INR 0.9, APTT 27.0, Sodium 138, Potassium 4.4, Chloride 105, Carbon Dioxide 26.0, Anion Gap 7, BUN 31 H, Creatinine 1.21, Estim Creat Clear Calc 70.42, Est GFR (MDRD) Af Amer 76, Est GFR (MDRD) Non-Af 63, BUN/Creatinine Ratio 25.6 H, Glucose 285 H, Calcium 8.6, Magnesium 2.1, Troponin I High Sens 5 Imaging Radiology Impression Chest X-Ray 10/09/23 18:40 IMPRESSION: No acute disease Electronically Signed: Odin Villaseñor MD at 18:53 EST , Assessment & Plan Assessment/Plan (1) Unstable angina: PLAN: Plan This 68-year-old gentleman with protracted history of CAD status post multiple PCI/stent admitted with exertional chest pain consistent with unstable angina. 1. Atypical chest pain most likely unstable angina:Patient is being admitted [facility]. SHARRI risk score is 5 out of 7. First troponin is negative. ED physician discussed with cardiology Dr. Elizondo and is being consulted. Patient started on IV heparin drip. Patient had last PCI in July [address] Cates. Proximal left circumflex in- stent restenosis 90% with RODDY. After that patient had pharmacological myocardial nuclear stress test in June 23 which reported normal. Last echo in July 2020 reported EF normal with [place]-normal. Stage I?oxygen. Bubble contrast today negative. Mild TR with PASP 35 mmHg. 2Decho ordered and I do not see any recent echo. Chest x- ray new lesion does not show a acute disease. 2. CAD status post multiple cardiac stents with history of syncope in November 2021 status post loop recorder. No recent syncope. Continue patient's home cardiac medications. Patient on baby aspirin, Plavix, atorvastatin high intensity and ranolazine. Patient not on beta-seun at home. Started on low-dose carvedilol 3.25 mg twice daily 3. Diabetes mellitus type 2 complicated with diabetic neuropathy: Glucose is high in BMP. Started on Lantus 10 units subcutaneous at night daily. Hold metformin and pioglitazone. Accu-Chek ACH cover with block sliding scale. 4. Hypertension and dyslipidemia: Blood pressure was elevated in ED but has improved and normal now 118/69. Heart rate 87/min 5. Dyslipidemia: 6. Mild normocytic normochromic anemia: H&H 11.5/35%. Platelet count normal 210. DVT prophylaxis: Patient on IV heparin drip. Living will/advanced directive/end of life care: Patient does have living will or advanced directive. His brother is power of development technical lead for health. After discussion of benefits/risks procedures involved with full code, DNR CC arrest and DNR CC, the patient opted for DNRCC arrest with no intubation. Patient brother is in agreement Patient doesn't want artificial life support including intubation, tube feed, ventilator and/chest compression, central venous catheter, vasopressor and DC shock if needed Total time spent in [id number]-uv-wodt encounter in discussion of advanced directive 17 minutes. Laboratory Results 10/09/23 18:30: WBC 7.1, RBC 3.87 L, Hgb 11.5 L, Hct 35.0 L, MCV 90.4, MCH 29.7,MCHC 32.9, RDW Std Deviation 42.6, RDW Coeff of Megan 13.0, Plt Count 210, MPV 9.5, Immature Gran % (Auto) 0.400, Neut % (Auto) 63.1, Lymph % (Auto) 25.4, [place]% (Auto) 7.7, Eos % (Auto) 2.7, Baso % (Auto) 0.7, Absolute Neuts (auto) 4.5, Absolute Lymphs (auto) 1.81, Nucleated RBC % 0, PT 12.4, INR 0.9, APTT 27.0, Sodium 138, Potassium 4.4, Chloride 105, Carbon Dioxide 26.0, Anion Gap 7, BUN 31 H, Creatinine 1.21, Estim Creat Clear Calc 70.42, Est GFR (MDRD) Af Amer 76, Est GFR (MDRD) Non-Af 63, BUN/Creatinine Ratio 25.6 H, Glucose 285 H, Calcium 8.6, Magnesium 2.1, Troponin I High Sens 5 Clinical Impression(s) from Imaging Studies Chest X-Ray 10/09/23 18:40 IMPRESSION: No acute disease Electronically Signed: Odin Villaseñor MD at 18:53 EST Reading Location ID and State: [facility] / [place] Tel , Service support , Charges/Coding Visit Charges Inpatient E&M: 06036 Init Hosp L3 Procedures Hospitalists Procedures: 03821 Advncd Care Plan 30 Min 10/09/232100 <Electronically signed by Gildardo Walton MD> Cosigner Signature (if applicable): CC: Dr. Nadir Grady MD; Dr. Gildardo Walton MD~ Signed [facility] Work Phone: History and physical note Author Gildardo Walton [facility] December 03, 2023 6:51pm Note Date/Time December 03, 2023 6:51 pm [facility] Medical Records Department [address] [place] [id number] H&P Exam - Hospitalist 12/03/23 1826 MR#: [id number] Acct: [id number] Name: MICHAEL BATES Jr. Rep #:[id number] : 1955 68 From: Gildardo Escoto PCP: Dr. Nadir Grady MD Status:ADM JASON Location: [place] [address] HPI - General General Date of Admission: 12/03/23 Date of Service: 12/03/23 Chief Complaint: Chest pain on exertion since yesterday HPI Narrative MICHAEL BATES, is a 68 M with history of CAD status post multiple stents last1 in October 2023 came to ED for exertional chest pain that started yesterday. Patient states he was doing simple walking and chest pain started as pressure, 3-5/10 intensity, left-sided with radiation to interscapular area in the back. It is starts after 4 to 5 minutes of walking and goes away at taking rest. It lasted about 10 to 12 minutes. This happened today and therefore came to ED. Patient on Xarelto here shortness of breath dizziness but denies syncope or sweating/diaphoresis. Patient was last seen in cardiology clinic by Yolanda Dean on 10/30/2023. Patient also had a loop recorder for history of syncopewhich was removed on 11/23. Patient had cardiac cath on 10/10/2023. In ED, twelve-lead EKG shows normal sinus rhythm at [address]-T changes with T wave inversion in V1. Last EKG on 10/30/2023 is similar with normal sinus rhythm. Patient had 2 troponins negative. [facility] Medical History Atherosclerotic heart disease of [place] coronary artery without angina pectoris (10/10/23) Bilateral carotid artery stenosis BPH (benign prostatic hyperplasia) COVID-19 (06/2021) DDD (degenerative disc disease) Elevated LFTs Essential (primary) hypertension History of CAD (coronary artery disease) Hx of diabetes insipidus Hyperlipidemia Hypertension [place] Syncope (10/2021) Tremor of both hands Type 2 diabetes mellitus Home Medications aspirin 81 mg tablet,delayed release 81 mg PO DAILY@0800 heart health 09/13/13 [History Last Taken 02/11/22] omega [id number]-acq-kls-fish oil 1,000 mg (120 mg-180 mg) capsule (Fish Oil) 1,000 mg POQDAY supplement 01/06/18 [History Last Taken 12/29/21] metformin 500 mg tablet,extended release 24 hr 1,000 mg PO BID 07/25/20 [History Last Taken 11/23/23] ferrous sulfate 325 mg (65 mg iron) tablet 325 mg PO BID 06/28/22 [History Last Taken Unknown] amlodipine 5 mg tablet 5 mg PO DAILY #10 tabs 10/23/23 [Rx Last Taken 11/24/23] atorvastatin 80 mg tablet 40 mg PO DAILY cholesterol 10/30/23 [History Last Taken Unknown] ranolazine 1,000 mg tablet,extended release,12 hr 1,000 mg PO BID #60 tabs 10/30/23 [Rx Last Taken Unknown] ticagrelor 90 mg tablet (Brilinta) 90 mg PO BID #60 tabs 10/30/23 [Rx Last Taken Unknown] zinc acetate 50 mg (zinc) capsule (Galzin) 50 mg PO DAILY supplement 10/30/23 [History Last Taken Unknown] nitroglycerin 0.4 mg sublingual tablet 0.4 mg sublingual Q5M PRN Chest Pain #25 tabs 11/14/23 [Rx Last Taken Unknown] clopidogrel 75 mg tablet 75 mg PO DAILY 12/03/23 [History Last Taken Unknown] pantoprazole 40 mg tablet,delayed release 40 mg PO DAILY 12/03/23 [History Last Taken Unknown] pioglitazone 45 mg tablet 45 mg PO DAILY 12/03/23 [History Last Taken Unknown] Allergy/AdvReac Type Severity Reaction Status Date / Time fludrocortisone Allergy Severe ANGIOEDEMA Verified 10/30/23 09:08 [From [facility]] losartan AdvReac Severe Angioedema Verified 10/30/23 09:33 perfume AdvReac Other Verified 10/30/23 09:08 Family History Sister CAD (coronary artery disease) CVA (cerebral vascular accident) Diabetes Myocardial infarction Hx of CABG Mother Cancer Lung CA Surgical History History of cataract surgery History of coronary artery stent placement (10/10/23) History of hand surgery History of left heart catheterization (10/10/23) History of loop recorder (12/13/21) Hx of appendectomy Social History Smoking Status: Never smoker alcohol intake: never substance use type: does not use caffeine: No what type of physical activity do you participate in: none seatbelt use: always do you feel safe at home: Yes ROS ROS Narrative Constitutional: Mild fatigue on walking no fever. HEENT: Reports systems reviewed and no addt'l complaints, except as documented Respiratory/Chest: As described in HPI. No dyspnea at rest CVS: As described in HPI Gastrointestinal: Denies coffee ground emesis, hematemesis or vomiting Genitourinary: Denies burning urination or new urinary tract symptoms Musculoskeletal: Denies acute joint pain or limited range of motion. No acute injury Neurologic: Denies seizure-like symptoms. skin: No ulcer. No rash Endocrinology: Reports systems reviewed and no addt'l complaints, except as documented Hematologic/Lymphatic: Reports systems reviewed and no addt'l complaints, exceptas documented Rest 14 ROS are negative except as mentioned in HPI Vital Signs Vital Signs Vital Signs: 12/03/23 14:14 12/03/23 14:51 12/03/23 16:14 Temperature 97.2 F L Temperature Source Temporal Pulse Rate 98 79 Respiratory Rate 16 16 Blood Pressure 172/88 H 153/80 H Blood Pressure Mean 116 104 Pulse Ox 97 95 Oxygen Delivery Method Room Air Room Air 12/03/23 17:52 Temperature 98.1 F Temperature Source Pulse Rate 91 Respiratory Rate 16 Blood Pressure 137/77 H Blood Pressure Mean 97 Pulse Ox 96 Oxygen Delivery Method Weight Weight: 198 lb 3.129 oz Body Mass Index (BMI) 28.4 Physical Exam Narrative General: Alert, Oriented x3, Cooperative HEENT: Atraumatic, PERRLA, EOMI, Normocephalic Oral: No Gingival or Mucosal Lesions/ Ulcerations Neck: Supple, No JVD, Negative Carotid Bruits Chest wall/Lungs: Air entry diminished in bilateral lung bases. No crepitation/rhonchi Cardiovascular: Regular rate, Regular Rhythm, Normal S1, Normal S2, holosystolicmurmur at LLSB and cardiac apex Abdomen: Bowel Sounds Present, Soft, Non Tender, Non-Distended : No dysuria. No renal angle tenderness. No suprapubic tenderness. Extremities: No edema, Capillary Refill Less than 3 Seconds Skin: No rashes, No breakdown Musculoskeletal: No Tenderness to Palpation of Joints or Extremities Neurological: Cranial nerves II-XII grossly intact, DTR 2+/4. No acute focal neurological deficit. Psych/Mental Status: Normal Affect, Appropriate. Results Lab / Micro Data 12/03/23 14:50 12/03/23 14:50 Labs: Laboratory Results - last 24 hr 12/03/23 14:50: WBC 4.6, RBC 3.83 L, Hgb 11.4 L, Hct 33.3 L, MCV 86.9, MCH 29.8,MCHC 34.2, RDW Std Deviation 39.1, RDW Coeff of Megan 12.3, Plt Count 189, MPV 9.2, Immature Gran % (Auto) 0.900, Neut % (Auto) 65.7, Lymph % (Auto) 19.4, [place]% (Auto) 11.2 H, Eos % (Auto) 1.9, Baso % (Auto) 0.9, Absolute Neuts (auto) 3.0,Absolute Lymphs (auto) 0.90, Nucleated RBC % 0, PT 13.0, INR 1.0, APTT 27.7, Sodium 134 L, Potassium 3.9, Chloride 101, Carbon Dioxide 28.0, Anion Gap 5, BUN23 H, Creatinine 1.02, Est GFR (MDRD) Af Amer 93, Est GFR (MDRD) Non-Af 77, BUN/Creatinine Ratio 22.5 H, Glucose 264 H, Calcium 9.0, Troponin I High Sens 6 12/03/23 16:50: Troponin I High Sens 6 Imaging Radiology Impression Chest X-Ray 12/03/23 15:49 IMPRESSION: No acute radiographic abnormalities. Electronically Signed: Nura Crowder MD at 16:48 EDT , Assessment & Plan Assessment/Plan (1) Chest pain, atypical: PLAN: Plan This is 68-year-old gentleman with history of CAD status post multiple stents came in for evaluation of chest pain. 1. Atypical chest pain, most likely unstable angina: Patient is being admitted in PCU. SHARRI risk score is 5 out of 7. Chest x-ray and EKG does not show acuteabnormality. Patient had last echo in October 2023 reported as EF 60% moderate2+ MR, aortic sclerosis LA moderately enlarged. Cardiac cath in October 2023 during previous admission shows multivessel CAD, 50% proximal LAD, 50 to 60% midLAD, 70% proximal OM 2 unchanged, 95% calcified proximal RCA, mid RCA and 70% distal RCA. Patient had PTCA/RODDY of the proximal and mid RCA and distal RCA. Patient was discharged on aspirin, Brilinta, statin Coreg losartan, sublingual nitro and Ranexa. But this admission, home medication does not show carvedilol. Patient has angioedema with losartan. Plan: 1 more troponin and repeat EKG. Pharmacological nuclear stress test for tomorrow AM. Patient does not have chest pain at rest. 2. CAD with multiple stents, mild MR: As mentioned above. Patient also historyof multiple syncope thought to be neurological and had loop recorder which was removed in October 2023. 3. Type 2 diabetes mellitus: Hold metformin and pioglitazone. Glucose is high at 264 in BMP. Lantus 10 units subcutaneous at bedtime daily. Accu-Cheks ACH cover with Humalog sliding scale. Repeat A1c during last admission was 7.3%. 4. Mild chronic normocytic normochromic anemia: Patient on ferrous sulfate continued. 5. Hypertension: Patient on amlodipine and other medications as mentioned above. BP was elevated in ED systolic 172 but has improved now. Monitor BP. Living will/advanced directive/end of life care: Patient does have living will or advanced directive. His brother present in ED is power of development technical lead for health. After discussion of benefits/risks procedures involved with full code,DNR CC arrest and DNR CC, the patient opted for DNR CC arrest with no intubation Patient doesn't want artificial life support including intubation, tube feed, ventilator and/chest compression, central venous catheter, vasopressor and DC shock if needed Total time spent in odja-yy-otqg encounter in discussion of advanced directive 17 minutes. Laboratory Results 12/03/23 14:50: WBC 4.6, RBC 3.83 L, Hgb 11.4 L, Hct 33.3 L, MCV 86.9, MCH 29.8,MCHC 34.2, RDW Std Deviation 39.1, RDW Coeff of Megan 12.3, Plt Count 189, MPV 9.2, Immature Gran % (Auto) 0.900, Neut % (Auto) 65.7, Lymph % (Auto) 19.4, [place]% (Auto) 11.2 H, Eos % (Auto) 1.9, Baso % (Auto) 0.9, Absolute Neuts (auto) 3.0,Absolute Lymphs (auto) 0.90, Nucleated RBC % 0, PT 13.0, INR 1.0, APTT 27.7, Sodium 134 L, Potassium 3.9, Chloride 101, Carbon Dioxide 28.0, Anion Gap 5, BUN23 H, Creatinine 1.02, Est GFR (MDRD) Af Amer 93, Est GFR (MDRD) Non-Af 77, BUN/Creatinine Ratio 22.5 H, Glucose 264 H, Calcium 9.0, Troponin I High Sens 6 12/03/23 16:50: Troponin I High Sens 6 Clinical Impression(s) from Imaging Studies Chest X-Ray 12/03/23 15:49 IMPRESSION: No acute radiographic abnormalities. Charges/Coding Visit Charges Inpatient E&M: 59413 Init Hosp L3 Procedures Hospitalists Procedures: 68405 Advncd Care Plan 30 Min 12/03/23 1851 <Electronically signed by Gildardo Walton MD> Cosigner Signature (if applicable): CC: Dr. Nadir Grady MD; Dr. Gildardo Walton MD~ Signed [facility] Work Phone: Reason for referral (narrative)* Diagnostic Procedure Only (Routine) - Authorized Specialty Diagnoses / Procedures Referred By Contac t Referred To Contact US IMAGING Diagnoses Abnormal weight loss Procedures US ABD RT UPPER QUADRANT US ABDOMINAL REAL TIME W/IMAGE LIMITED Martha Boston PA-C [address] [place] [address] Us Imaging Referral ID Status Reason Start Date Expiration Date Visits Requested Visits Authorized [id number] Authorized Auto-Generat ed Referral 2 07/25/2023 [address] [facility] for referral (narrative)* Outpatient Procedure (Routine) - Pending Review Specialty Diagnoses / Procedures Referred By Contjean pierre t Referred To Contact [facility] Diagnoses Anemia, unspecified type Procedures COLONOSCOPY DIAGNOSTIC COLONOSCOPY FLX DX W/COLLJ SPEC WHEN PFRMD Thai Santiago MD [address] [facility] [place] [address] [address] Referral ID Status Reason Start Date Expiration Date Visits Requested Visits Authorized [id number] Pending Review Auto-Generat ed Referral 2 06/27/2023 1 1 * Outpatient Procedure (Routine) - Pending Review Specialty Diagnoses / Procedures Referred By Carlos neff Referred To Contact [facility] Diagnoses Anemia, unspecified type Procedures EGD DIAGNOSTIC ESOPHAGOGASTRODUODENOSC OPY TRANSORAL DIAGNOSTIC Thai Santiago MD [address] [facility] [place] [address] [place] [id number] Referral ID Status Reason Start Date Expiration Date Visits Requested Visits Authorized [id number] Pending Review Auto-Generat ed Referral 2 06/27/2023 [address] [facility] for referral (narrative)* Diagnostic Procedure Only (Urgent) - Closed Specialty Diagnoses / Procedures Referred By Carlos neff Referred To Contact XR IMAGING Diagnoses Foot injury, left, initial encounter Procedures XR FOOT GENERAL 3V AP/LAT/OBL LEFT RADEX FOOT COMPLETE MINIMUM 3 VIEWS Miladys Butt, CERTIFIED ANESTHESIOLOGIST ASSISTANT [address] [place] [address] Xr Imaging Referral ID Status Reason Start Date Expiration Date V isits Requested Visits Authorized [id number] Closed Auto-Generate d Referral 09/23/2022 10/23/2023 [address] [facility] for referral (narrative)* Outpatient Procedure (Routine) - Closed Specialty Diagnoses / Procedures Referred By Carlos neff Referred To Contact Diagnoses Anemia, unspecified type Procedures COLONOSCOPY DIAGNOSTIC COLONOSCOPY FLX DX W/COLLJ SPEC WHEN PFRMD Thai Santiago MD [address] [place] [address] Nell Gillis MD [address] [place] [address] Referral ID Status Reason Start Date Expiration Date V isits Requested Visits Authorized [id number] Closed Auto-Generate d Referral 10/14/2022 01/12/2023 1 1 * Outpatient Procedure (Routine) - Closed Specialty Diagnoses / Procedures Referred By Carlos neff Referred To Contact Diagnoses Anemia, unspecified type Procedures EGD DIAGNOSTIC ESOPHAGOGASTRODUODENOSCOPY TRANSORAL DIAGNOSTIC Thai Santiago MD [address] [facility] [place] [address] Nell Gillis MD [address] [place] [address] Referral ID Status Reason Start Date Expiration Date V isits Requested Visits Authorized [id number] Closed Auto-Generate d Referral 10/14/2022 01/12/2023 [address] [facility] for referral (narrative)* Diagnostic Procedure Only (Routine) - Closed Specialty Diagnoses / Procedures Referred By Carlos neff Referred To Contact CT IMAGING Diagnoses Abnormal weight loss Procedures CT ABD/PEL W IVCON CT ABD & PELVIS W/CONTRAST Martha Boston PA-C [address] [place] [address] [place] [address] Referral ID Status Reason Start Date Expiration Date V isits Requested Visits Authorized [id number] Closed Auto-Generate d Referral 07/09/2022 08/08/2022 2 2 * MRI/CT (Routine) - Closed Specialty Diagnoses / Procedures Referred By Contac t Referred To Contact CT IMAGING Diagnoses Abnormal weight loss Procedures CT CHEST W IVCON DIAGNOSTIC COMPUTED TOMOGRAPHY THORAX W/CONTRAST Martha Boston PA-C [address] [place] [address] [place] [address] Referral ID Status Reason Start Date Expiration Date V isits Requested Visits Authorized [id number] Closed Auto-Generate d Referral 07/09/2022 08/08/2022 [address] [facility] for referral (narrative)* Diagnostic Procedure Only (Routine) - Closed Specialty Diagnoses / Procedures Referred By Contac t Referred To Contact US IMAGING Diagnoses Abnormal weight loss Procedures US ABD RT UPPER QUADRANT US ABDOMINAL REAL TIME W/IMAGE LIMITED Martha Boston PA-C [address] [place] [address] [place] [address] Referral ID Status Reason Start Date Expiration Date V isits Requested Visits Authorized [id number] Closed Auto-Generate d Referral 06/25/2022 07/25/2023 [address] [facility] for referral (narrative)* Diagnostic Procedure Only (Urgent) - Closed Specialty Diagnoses / Procedures Referred By Contac t Referred To Contact XR IMAGING Diagnoses Hand pain, left Procedures XR HAND GENERAL 3V PA/LAT/OBL LEFT RADEX HAND MINIMUM 3 VIEWS Karin Hamm, BRAILLE PROOFREADER.CERTIFIED ANESTHESIOLOGIST ASSISTANT [address] [place] [address] [place] [address] Referral ID Status Reason Start Date Expiration Date V isits Requested Visits Authorized [id number] Closed Auto-Generate d Referral 12/22/2023 01/20/2025 1 1 Electronically signed by Karin Hamm BRAILLE PROOFREADER.CERTIFIED ANESTHESIOLOGIST ASSISTANT at 12/22/2023 9:19 AM EDT * Diagnostic Procedure Only (Urgent) - Closed Specialty Diagnoses / Procedures Referred By Contac t Referred To Contact XR IMAGING Diagnoses Left forearm pain Procedures XR FOREARM GENERAL 2V AP/LAT LEFT RADEX FOREARM 2 VIEWS Karin Hamm APRN.CERTIFIED ANESTHESIOLOGIST ASSISTANT [address] [place] [address] [place] [address] Referral ID Status Reason Start Date Expiration Date V isits Requested Visits Authorized [id number] Closed Auto-Generate d Referral 12/22/2023 01/20/2025 [address] [facility] for referral (narrative)* Diagnostic Procedure Only (Urgent) - Closed Specialty Diagnoses / Procedures Referred By Contac t Referred To Contact XR IMAGING Diagnoses Hand pain, left Procedures XR HAND GENERAL 3V PA/LAT/OBL LEFT RADEX HAND MINIMUM 3 VIEWS Karin Hamm APRN.CERTIFIED ANESTHESIOLOGIST ASSISTANT [address] [place] [address] [place] [address] Referral ID Status Reason Start Date Expiration Date V isits Requested Visits Authorized [id number] Closed Auto-Generate d Referral 12/22/2023 01/20/2025 1 1 * Diagnostic Procedure Only (Urgent) - Closed Specialty Diagnoses / Procedures Referred By Contac t Referred To Contact XR IMAGING Diagnoses Left forearm pain Procedures XR FOREARM GENERAL 2V AP/LAT LEFT RADEX FOREARM 2 VIEWS Karin Hamm APRN.CERTIFIED ANESTHESIOLOGIST ASSISTANT [address] [place] [address] [place] [address] Referral ID Status Reason Start Date Expiration Date V isits Requested Visits Authorized [id number] Closed Auto-Generate d Referral 12/22/2023 01/20/2025 [address] [facility] for referral (narrative)* Diagnostic Procedure Only (Urgent) - Closed Specialty Diagnoses / Procedures Referred By Contac t Referred To Contact XR IMAGING Diagnoses Foot injury, left, initial encounter Procedures XR FOOT GENERAL 3V AP/LAT/OBL LEFT RADEX FOOT COMPLETE MINIMUM 3 VIEWS Miladys Butt APRN.CERTIFIED ANESTHESIOLOGIST ASSISTANT [address] [place] [address] [place] [address] Referral ID Status Reason Start Date Expiration Date V isits Requested Visits Authorized [id number] Closed Auto-Generate d Referral 09/23/2022 10/23/2023 [address] [facility] for referral (narrative)* Diagnostic Procedure Only (Urgent) - Closed Specialty Diagnoses / Procedures Referred By Contac t Referred To Contact XR IMAGING Diagnoses Wrist pain, right Procedures XR WRIST GENERAL 3V PA/LAT/OBL RIGHT RADEX WRIST COMPLETE MINIMUM 3 VIEWS Bridget Joseph APRN.CERTIFIED ANESTHESIOLOGIST ASSISTANT [address] [place] [address] [place] [address] Referral ID Status Reason Start Date Expiration Date V isits Requested Visits Authorized [id number] Closed Auto-Generate d Referral 07/24/2024 08/23/2025 [address] [facility] for referral (narrative)* Diagnostic Procedure Only (Urgent) - Closed Specialty Diagnoses / Procedures Referred By Contac t Referred To Contact XR IMAGING Diagnoses Wrist pain, right Procedures XR WRIST GENERAL 3V PA/LAT/OBL RIGHT RADEX WRIST COMPLETE MINIMUM 3 VIEWS Bridget Joseph APRN.CERTIFIED ANESTHESIOLOGIST ASSISTANT [address] [place] [address] [place] [address] Referral ID Status Reason Start Date Expiration Date V isits Requested Visits Authorized [id number] Closed Auto-Generate d Referral 07/24/2024 08/23/2025 [address] [facility] for referral (narrative)No reason for referral information availableWMercy Health [facility] Work Phone: Reason for visit Narrative* Outpatient Procedure (Routine) - Closed Specialty Diagnoses / Procedures Referred By Contac t Referred To Contact Diagnoses Anemia, unspecified type Procedures COLONOSCOPY DIAGNOSTIC COLONOSCOPY FLX DX W/COLLJ SPEC WHEN Thai Borges MD [address] [place] [address] Nell Gillis MD [address] [place] [address] Referral ID Status Reason Start Date Expiration Date V isits Requested Visits Authorized [id number] Closed Auto-Generate d Referral 10/14/2022 01/12/2023 [address] [facility] for visit Narrative* Diagnostic Procedure Only (Routine) - Closed Specialty Diagnoses / Procedures Referred By Contac t Referred To Contact CT IMAGING Diagnoses Abnormal weight loss Procedures CT ABD/PEL W IVCON CT ABD & PELVIS W/CONTRAST Martha Boston PA-C [address] [place] [address] [place] [address] Referral ID Status Reason Start Date Expiration Date V isits Requested Visits Authorized [id number] Closed Auto-Generate d Referral 07/09/2022 08/08/2022 [address] [facility] for visit Narrative* Diagnostic Procedure Only (Urgent) - Closed Specialty Diagnoses / Procedures Referred By Contac t Referred To Contact XR IMAGING Diagnoses Hand pain, left Procedures XR HAND GENERAL 3V PA/LAT/OBL LEFT RADEX HAND MINIMUM 3 VIEWS Karin Hamm, BRAILLE PROOFREADER.CERTIFIED ANESTHESIOLOGIST ASSISTANT [address] [place] [address] [place] [address] Referral ID Status Reason Start Date Expiration Date V isits Requested Visits Authorized [id number] Closed Auto-Generate d Referral 12/22/2023 01/20/2025 [address] [facility] for visit Narrative* Diagnostic Procedure Only (Urgent) - Closed Specialty Diagnoses / Procedures Referred By Contac t Referred To Contact XR IMAGING Diagnoses Foot injury, left, initial encounter Procedures XR FOOT GENERAL 3V AP/LAT/OBL LEFT RADEX FOOT COMPLETE MINIMUM 3 VIEWS Miladys Butt, BRAILLE PROOFREADER.CERTIFIED ANESTHESIOLOGIST ASSISTANT [address] [place] [address] [place] [address] Referral ID Status Reason Start Date Expiration Date V isits Requested Visits Authorized [id number] Closed Auto-Generate d Referral 09/23/2022 10/23/2023 [facility] Procedure Only (Urgent) - Closed Specialty Diagnoses / Procedures Referred By Contac t Referred To Contact XR IMAGING Diagnoses Wrist pain, right Procedures XR WRIST GENERAL 3V PA/LAT/OBL RIGHT RADEX WRIST COMPLETE MINIMUM 3 VIEWS Moomaw, Bridget, BRAILLE PROOFREADER.CERTIFIED ANESTHESIOLOGIST ASSISTANT [address] [place] [address] [place] [address] Referral ID Status Reason Start Date Expiration Date V isits Requested Visits Authorized [id number] Closed Auto-Generate d Referral 07/24/2024 08/23/2025 1 1 [facility] Summary Purpose Family History Relationship Condition Age at Onset Recorded Date/T maryam sister Coronary artery disease Unknown Cerebrovascular accident (CVA) Unknown Diabetes mellitus Unknown Myocardial infarction Unknown History of coronary artery bypass surgery Unknown mother Malignant neoplasm Unknown Advance Directives Documents on File Type Date Recorded Patient Administrative Coordinator Expl anation Advance Directive(s) Advance Directive(s) 02/20/2018 5:13 PM Advance Directive(s) 02/16/2018 12:54 PM Advance Directive(s) 11/07/2017 1:34 PM Advance Directive(s) 11/07/2017 4:10 PM Advance Directive(s) 11/07/2017 4:03 PM Advance Directive(s) 09/10/2017 6:38 AM Advance Directive(s) 11/20/2015 9:33 AM Advance Directive Response Recorded Date/ Time Advance Directives No December 13 6:59am Living Will No December 13, 2021 6:59am Power of Optical Instrument Repairer No December 13 6:59am Advance Directive Response Recorded Date/ Time Advance Directives No December 13 6:59am Living Will No December 29, 2021 6:03pm Power of Optical Instrument Repairer No December 29 6:03pm Advance Directive Response Recorded Date/ Time Advance Directives No February 08 8:08am Living Will No Yolande 10th, 2022 8:08am Power of Optical Instrument Repairer No February 08 8:08am Advance Directive Response Recorded Date/ Time Advance Directives No February 11 8:44am Living Will No February 11, 2022 8:44am Power of Optical Instrument Repairer No February 11 8:44am Documents on File Type Date Recorded Patient Administrative Coordinator Expl anation Advance Directive(s) Advance Directive(s) 02/20/2018 5:13 PM Advance Directive(s) 02/16/2018 12:54 PM Advance Directive(s) 11/07/2017 1:34 PM Advance Directive(s) 11/07/2017 4:10 PM Advance Directive(s) 11/07/2017 4:03 PM Advance Directive(s) 09/10/2017 6:38 AM Advance Directive(s) 11/20/2015 9:33 AM Advance Directive Response Recorded Date/ Time Advance Directives No February 11 8:44am Living Will No March 22, 2022 2:01pm Power of Optical Instrument Repairer No March 22 2:01pm Documents on File Type Date Recorded Patient Administrative Coordinator Expl anation Advance Directive(s) 11/07/2017 4:03 PM Advance Directive Response Recorded Date/ Time Advance Directives No February 11 8:44am Living Will No May 28, 2022 4:31pm Power of Optical Instrument Repairer No May 4:31pm Documents on File Type Date Recorded Patient Administrative Coordinator Expl anation Advance Directive(s) 11/07/2017 4:03 PM Advance Directive Response Recorded Date/ Time Advance Directives No February 11 8:44am Living Will No January 20, 2023 4 :39pm Power of Optical Instrument Repairer No January 20, 2023 4:39pm Advance Directive Response Recorded Date/ Time Advance Directives No February 11 7:44am Living Will No October 09 7:02pm Power of Optical Instrument Repairer No October 09, 2023 7:02pm Advance Directive Response Recorded Date/ Time Name of Medical Power of Optical Instrument Repairer priscilla brock October 09, 2023 11:21pm Advance Directives No February 11 7:44am Living Will Yes October 09 11:21pm Power of Optical Instrument Repairer Yes October 09, 2023 11:21pm Advance Directive Response Recorded Date/ Time Advance Directives No February 11 7:44am Living Will No October 15 8:36am Power of Optical Instrument Repairer No October 15, 2023 8:36am Name of Medical Power of Optical Instrument Repairer priscilla brock October 09, 2023 11:21pm Advance Directive Response Recorded Date/ Time Name of Medical Power of Optical Instrument Repairer priscilla brock October 09, 2023 11:21pm Advance Directives No February 11 7:44am Living Will No October 23 9:23am Power of Optical Instrument Repairer No October 23, 2023 9:23am Advance Directive Response Recorded Date/ Time Name of Medical Power of Optical Instrument Repairer priscilla brock October 10, 2023 12:21am Advance Directives No November 23 7:06am Living Will No November 24, 2023 7:06am Power of Optical Instrument Repairer No November 23 7:06am Advance Directives on File No November 19, 2023 1:14pm Advance Directive Response Recorded Date/ Time Name of Medical Power of Optical Instrument Repairer priscilla brock October 10, 2023 12:21am Advance Directives on File No November 19, 2023 1:14pm Advance Directives No November 23 7:06am Living Will No December 03, 2023 7:36pm Power of Optical Instrument Repairer No December 02 7:36pm Advance Directive Response Recorded Date/ Time Living Will No December 03, 2023 7:36pm Power of Optical Instrument Repairer No December 02 7:36pm Living Will No August 16 8:04am Power of Optical Instrument Repairer No August 16, 2024 8:04am Advance Directives No August 8:04am Living Will No August 27 10:44am Power of Optical Instrument Repairer No August 27, 2024 10:44am Advance Directive Response Recorded Date/ Time Living Will No August 16 8:04am Do you have a Healthcare Power of Optical Instrument Repairer? No August 16, 2024 8:04am Advance Directives No August 8:04am Living Will No August 27 10:44am Do you have a Healthcare Power of Optical Instrument Repairer? No August 27, 2024 10:44am Advance Directive Response Recorded Date/ Time Advance Directives No August 8:04am Advance Directive Response Recorded Date/ Time Living Will No December 03, 2023 7:36pm Do you have a Healthcare Power of Optical Instrument Repairer? No December 03, 2023 7:36pm Advance Directives No August 8:04am Advance Directive Response Recorded Date/ Time Living Will No December 03, 2023 7:36pm Do you have a Healthcare Power of Optical Instrument Repairer? No December 03, 2023 7:36pm Do you have a Healthcare Power of Optical Instrument Repairer? No March 05, 2025 11:22am Advance Directives No August 8:04am Chief Complaint and Reason for Visit Chief Complaint COVID VACCINE HEAD INJURY HEAD INJURY SYNCOPE *LIYA* HEAD PAIN FU FROM [facility] ER. SYNCOPE/COLLAPSE Reason for Visit Bilateral carotid ar mike stenosis Syncope Essential (primary) hypertension Hyperlipidemia Chief Complaint HEAD INJURY HEAD INJURY SYNCOPE *LIYA* HEAD PAIN FU FROM [facility] ER. SYNCOPE/COLLAPSE E ORDERS hypotension Reason for Visit Bilateral carotid ar [place]ike stenosis Syncope Essential (primary) hypertension Hyperlipidemia Chief Complaint HEAD INJURY HEAD INJURY SYNCOPE *LIYA* HEAD PAIN FU FROM [facility] ER. SYNCOPE/COLLAPSE E ORDERS hypotension PER KEENAN ANGIOEDEMA Reason for Visit Bilateral carotid ar [place]ike stenosis Syncope Essential (primary) hypertension Hyperlipidemia History of loop recorder Syncope Chief Complaint HEAD INJURY HEAD INJURY SYNCOPE *LIYA* HEAD PAIN FU FROM [facility] ER. SYNCOPE/COLLAPSE E ORDERS hypotension PER KEENAN ANGIOEDEMA remote ILR f/u 2 m fu Remote ILR ALERT CHEST PAIN, CAD HX CHEST PAIN, CAD HX Reason for Visit Bilateral carotid ar [place] stenosis Syncope Essential (primary) hypertension Hyperlipidemia History of loop recorder Syncope History of loop recorder Syncope Atherosclerotic heart disease of [place] coronary artery without angina pectoris Bilateral carotid artery stenosis History of loop recorder Hypotension Syncope Atherosclerotic heart disease of [place] coronary artery without angina pectoris Essential (primary) hypertension History of coronary artery stent placement Hyperlipidemia History of loop recorder Syncope Chief Complaint HEAD INJURY HEAD INJURY SYNCOPE *LIYA* HEAD PAIN FU FROM [facility] ER. SYNCOPE/COLLAPSE E ORDERS hypotension PER KEENAN ANGIOEDEMA remote ILR f/u 2 m fu Remote ILR ALERT CHEST PAIN, CAD HX CHEST PAIN, CAD HX CAD ,CP, HX OF STENTS CAD ,CP, HX OF STENTS Reason for Visit Bilateral carotid [place] stenosis Syncope Essential (primary) hypertension Hyperlipidemia History of loop recorder Syncope History of loop recorder Syncope Atherosclerotic heart disease of [place] coronary artery without angina pectoris Bilateral carotid artery stenosis History of loop recorder Hypotension Syncope Atherosclerotic heart disease of [place] coronary artery without angina pectoris Essential (primary) hypertension History of coronary artery stent placement Hyperlipidemia History of loop recorder Syncope Bilateral carotid artery stenosis Chest pain Atherosclerotic heart disease of [place] coronary artery without angina pectoris Essential (primary) hypertension History of coronary artery stent placement Hyperlipidemia Chief Complaint SYNCOPE/COLLAPSE E ORDERS hypotension PER KEENAN ANGIOEDEMA remote ILR f/u 2 m fu Remote ILR ALERT CHEST PAIN, CAD HX pacer check CAD ,CP, HX OF STENTS CAD ,CP, HX OF STENTS fall 1 wk ago, uncontrolled shaking Reason for Visit History of loop [place] rder Syncope History of loop recorder Syncope Atherosclerotic heart disease of [place] coronary artery without angina pectoris Bilateral carotid artery stenosis History of loop recorder Hypotension Syncope Atherosclerotic heart disease of [place] coronary artery without angina pectoris Essential (primary) hypertension History of coronary artery stent placement Hyperlipidemia History of loop recorder Syncope Bilateral carotid artery stenosis Chest pain Atherosclerotic heart disease of [place] coronary artery without angina pectoris Essential (primary) hypertension History of coronary artery stent placement Hyperlipidemia Chief Complaint remote ILR f/u 2 m fu Remote ILR ALERT CHEST PAIN, CAD HX pacer check CAD ,CP, HX OF STENTS CAD ,CP, HX OF STENTS fall 1 wk ago, uncontrolled shaking Adrenal INT LABS 6 M FU CORTISOL STIM TEST Reason for Visit Atherosclerotic hear t disease of [place] coronary artery without angina pectoris History of loop recorder Syncope Atherosclerotic heart disease of [place] coronary artery without angina pectoris Bilateral carotid artery stenosis Essential (primary) hypertension History of coronary artery stent placement History of loop recorder Hyperlipidemia Hypotension Syncope History of loop recorder Syncope Atherosclerotic heart disease of [place] coronary artery without angina pectoris Bilateral carotid artery stenosis Essential (primary) hypertension History of coronary artery stent placement Hyperlipidemia Syncope Atherosclerotic heart disease of [place] coronary artery without angina pectoris Bilateral carotid artery stenosis History of coronary artery stent placement History of loop recorder Hyperlipidemia Hypotension Syncope Chief Complaint CAD ,CP, HX OF STENT S CAD ,CP, HX OF STENTS fall 1 wk ago, uncontrolled shaking Adrenal INT LABS 6 M FU CORTISOL STIM TEST CP Reason for Visit Atherosclerotic hear t disease of [place] coronary artery without angina pectoris Bilateral carotid artery stenosis Essential (primary) hypertension History of coronary artery stent placement Hyperlipidemia Syncope Atherosclerotic heart disease of [place] coronary artery without angina pectoris Bilateral carotid artery stenosis History of coronary artery stent placement History of loop recorder Hyperlipidemia Hypotension Syncope Chief Complaint 1 Y FU Atherosclerotic heart disease of [place] coronary a Atherosclerotic heart disease of [place] coronary a Amb Documentation Reason for Visit Atherosclerotic hear t disease of [place] coronary artery without angina pectoris Bilateral carotid artery stenosis History of loop recorder Hyperlipidemia Hypotension Syncope Chief Complaint Pacer Check Remote UNSTABLE ANGINA UNSTABLE ANGINA Reason for Visit Acute electrocardiog [place] changes Angina at rest Chest pain History of CAD (coronary artery disease) Hx of diabetes insipidus Unstable angina Chief Complaint Pacer Check Remote UNSTABLE ANGINA UNSTABLE ANGINA UNSTABLE ANGINA UNSTABLE ANGINA UNSTABLE ANGINA Reason for Visit Acute electrocardiog [place] changes Angina at rest Chest pain History of CAD (coronary artery disease) Hx of diabetes insipidus Unstable angina Hyperlipidemia Hypertension Type 2 diabetes mellitus Chief Complaint Pacer Check Remote UNSTABLE ANGINA UNSTABLE ANGINA UNSTABLE ANGINA UNSTABLE ANGINA UNSTABLE ANGINA UNSTABLE ANGINA chest pain Reason for Visit Acute electrocardiog [place] changes Angina at rest Chest pain History of CAD (coronary artery disease) Hx of diabetes insipidus Unstable angina Hyperlipidemia Hypertension Type 2 diabetes mellitus Chief Complaint Pacer Check Remote UNSTABLE ANGINA UNSTABLE ANGINA CP ADMISSION UNSTABLE ANGINA UNSTABLE ANGINA UNSTABLE ANGINA UNSTABLE ANGINA Pacer Check Remote chest pain edema Reason for Visit Acute electrocardiog [place] changes Angina at rest Chest pain Unstable angina Chief Complaint UNSTABLE ANGINA UNSTABLE ANGINA CP ADMISSION UNSTABLE ANGINA UNSTABLE ANGINA UNSTABLE ANGINA UNSTABLE ANGINA Pacer Check Remote chest pain edema S/P [facility] 2/10 Pacer Check Remote Amb Documentation PCI with stenting NO SYNCOPE Reason for Visit Acute electrocardiog [place] changes Angina at rest Chest pain Unstable angina Atherosclerotic heart disease of [place] coronary artery without angina pectoris Bilateral carotid artery stenosis Hypotension Syncope Chief Complaint UNSTABLE ANGINA UNSTABLE ANGINA CP ADMISSION UNSTABLE ANGINA UNSTABLE ANGINA UNSTABLE ANGINA UNSTABLE ANGINA Pacer Check Remote chest pain edema S/P [facility] 2/10 Pacer Check Remote Amb Documentation PCI with stenting NO SYNCOPE PCI with stent Reason for Visit Acute electrocardiog [place] changes Angina at rest Chest pain Unstable angina Atherosclerotic heart disease of [place] coronary artery without angina pectoris Bilateral carotid artery stenosis Hypotension Syncope Chief Complaint UNSTABLE ANGINA UNSTABLE ANGINA CP ADMISSION UNSTABLE ANGINA UNSTABLE ANGINA UNSTABLE ANGINA UNSTABLE ANGINA Pacer Check Remote chest pain edema S/P [facility] 2/10 Pacer Check Remote Amb Documentation PCI with stenting NO SYNCOPE PCI with stent PCI with stent ATYPICAL CHEST PAIN Reason for Visit Acute electrocardiog [place] changes Angina at rest Chest pain Unstable angina Atherosclerotic heart disease of [place] coronary artery without angina pectoris Bilateral carotid artery stenosis Hypotension Syncope Chest pain Chest pain, atypical Essential (primary) hypertension Chief Complaint UNSTABLE ANGINA UNSTABLE ANGINA CP ADMISSION UNSTABLE ANGINA UNSTABLE ANGINA UNSTABLE ANGINA UNSTABLE ANGINA Pacer Check Remote chest pain edema S/P [facility] 2/10 Pacer Check Remote Amb Documentation PCI with stenting NO SYNCOPE PCI with stent PCI with stent ATYPICAL CHEST PAIN ATYPICAL CHEST PAIN Reason for Visit Acute electrocardiog [place] changes Angina at rest Chest pain Unstable angina Atherosclerotic heart disease of [place] coronary artery without angina pectoris Bilateral carotid artery stenosis Hypotension Syncope Chest pain Chest pain, atypical Essential (primary) hypertension Chief Complaint UNSTABLE ANGINA UNSTABLE ANGINA CP ADMISSION UNSTABLE ANGINA UNSTABLE ANGINA UNSTABLE ANGINA UNSTABLE ANGINA Pacer Check Remote chest pain edema S/P [facility] 2/10 Pacer Check Remote Amb Documentation PCI with stenting NO SYNCOPE PCI with stent ATYPICAL CHEST PAIN ATYPICAL CHEST PAIN CP ATYPICAL CHEST PAIN ATYPICAL CHEST PAIN PCI with stent 2 M FU Reason for Visit Acute electrocardiog [place] changes Angina at rest Chest pain Unstable angina Atherosclerotic heart disease of [place] coronary artery without angina pectoris Bilateral carotid artery stenosis Hypotension Syncope Chest pain Chest pain, atypical Atherosclerotic heart disease of [place] coronary artery without angina pectoris Bilateral carotid artery stenosis Hypotension Syncope Chief Complaint Admit Date 3 M FU July 28, 2024 8:10am CHEST X-RAY, E-ORDER July 28, 2024 9:22am CHEST PAIN August 16, 2024 6:45am chest pain, sob, diarrhea August 27, 2024 9:39am S/P [facility] /16 Cath September 08, 2024 12 :50pm CERVICAL RADICULOPATHY October 23 7:20am Other hypersomnia November 09, 2024 7:5 1pm Reason for Visit Admit Date Chest pain July 28, 2024 8:10am Bilateral carotid artery stenosis Novemb er 2023 8:10am History of coronary artery stent placeme nt July 28, 2024 8:10am Hyperlipidemia July 28, 2024 8:10am Hypotension July 28, 2024 8:10am Syncope July 28, 2024 8:10am Bilateral carotid artery stenosis Januar y 2024 12:50pm History of coronary artery stent placeme nt September 08, 2024 12:50pm Hyperlipidemia September 08, 2024 12 :50pm Hypotension September 08, 2024 12 :50pm Syncope September 08, 2024 12 :50pm Chief Complaint Admit Date CHEST PAIN August 16, 2024 6:45am chest pain, sob, diarrhea August 27, 2024 9:39am S/P [facility] 08/16 Cath September 08, 2024 12 :50pm CERVICAL RADICULOPATHY October 23 7:20am Other hypersomnia November 09, 2024 7:5 1pm 3 M FU December 08, 2024 8:09 am INT LABS December 08, 2024 9:01 am Reason for Visit Admit Date Bilateral carotid artery stenosis Rajni y 2024 12:50pm History of coronary artery stent placeme nt September 08, 2024 12:50pm Hyperlipidemia September 08, 2024 12 :50pm Hypotension September 08, 2024 12 :50pm Syncope September 08, 2024 12 :50pm Claudication of left lower extremity Apr [place] 2024 8:09am Bilateral carotid artery stenosis December 08, 2024 8:09am History of coronary artery stent placeme nt December 08, 2024 8:09am Hyperlipidemia December 08, 2024 8:09 am Hypotension December 08, 2024 8:09 am Syncope December 08, 2024 8:09 am Chief Complaint Admit Date S/P [facility] 08/16 Cath September 08, 2024 12 :50pm CERVICAL RADICULOPATHY October 23 7:20am Other hypersomnia November 09, 2024 7:5 1pm 3 M FU December 08, 2024 8:09 am INT LABS December 08, 2024 9:01 am DIZZINESS,PERIPHERAL VASCULAR DISEASE UN SPECIFIED December 23, 2024 7:30am Chief Complaint Admit Date Other hypersomnia November 09, 2024 7:5 1pm 3 M FU December 08, 2024 8:09 am INT LABS December 08, 2024 9:01 am DIZZINESS,PERIPHERAL VASCULAR DISEASE UN SPECIFIED December 23, 2024 7:30am 1 Y FU February 22, 2025 10:5 5am Reason for Visit Admit Date Claudication of left lower extremity Apr [place] 2024 8:09am Bilateral carotid artery stenosis December 08, 2024 8:09am History of coronary artery stent placeme nt December 08, 2024 8:09am Hyperlipidemia December 08, 2024 8:09 am Hypotension December 08, 2024 8:09 am Syncope December 08, 2024 8:09 am Chief Complaint Admit Date Other hypersomnia November 09, 2024 7:5 1pm 3 M FU December 08, 2024 8:09 am INT LABS December 08, 2024 9:01 am DIZZINESS,PERIPHERAL VASCULAR DISEASE UN SPECIFIED December 23, 2024 7:30am 1 Y FU February 22, 2025 10:5 5am cp March 05, 2025 11:10 am Reason for Visit Admit Date Claudication of left lower extremity Apr 2024 8:09am Bilateral carotid artery stenosis December 08, 2024 8:09am History of coronary artery stent placeme nt December 08, 2024 8:09am Hyperlipidemia December 08, 2024 8:09 am Hypotension December 08, 2024 8:09 am Syncope December 08, 2024 8:09 am Claudication of left lower extremity Bandar 2024 10:55am Bilateral carotid artery stenosis January 312024 10:55am History of coronary artery stent placeme nt February 22, 2025 10:55am Hyperlipidemia February 22, 2025 10:5 5am Hypotension February 22, 2025 10:5 5am Syncope February 22, 2025 10:5 5am Reason for Referral Specialty Diagnoses / Procedures Referred By Carlos neff Referred To Contact Neurology Diagnoses Orthostatic hypotension Procedures CONSULT TO NEUROLOGY OFFICE/OUTPATIENT [facility] 60-74 MINUTES Jenna Jim, BRAILLE PROOFREADER.CERTIFIED ANESTHESIOLOGIST ASSISTANT [address] [place] [id number] Referral ID Status Reason Start Date Expiration Date Visits Requested Visits Authorized [id number] Pending Review PCP Requested Referral 02/22/2022 02/22/2023 1 1 Specialty Diagnoses / Procedures Referred By Carlos neff Referred To Contact CT IMAGING Diagnoses Injury of head, initial encounter Procedures CT BRAIN WO IVCON CT HEAD/BRAIN W/O CONTRAST MATERIAL Jenna Jim, COLLETTE.CERTIFIED ANESTHESIOLOGIST ASSISTANT [address] [place] [address] Ct Imaging Referral ID Status Reason Start Date Expiration Date V isits Requested Visits Authorized [id number] Closed Auto-Generate d Referral 03/19/2022 04/18/2023 1 1 Specialty Diagnoses / Procedures Referred By Carlos neff Referred To Contact General Surgery Diagnoses Anemia, unspecified type Procedures CONSULT TO GENERAL SURGERY OFFICE/OUTPATIENT [facility] MDM 60-74 MINUTES Martha Boston PA-C [address] [place] [address] Referral ID Status Reason Start Date Expiration Date Visits Requested Visits Authorized [id number] Pending Review PCP Requested Referral 06/26/2023 1 1 Specialty Diagnoses / Procedures Referred By Contac t Referred To Contact CT IMAGING Diagnoses Abnormal weight loss Procedures CT ABD/PEL W IVCON CT ABD & PELVIS W/CONTRAST Martha Boston PA-C [address] [place] [address] Ct Imaging Referral ID Status Reason Start Date Expiration Date Visits Requested Visits Authorized [id number] Pending Review Auto-Generat ed Referral 07/02/2022 08/01/2023 1 1 Specialty Diagnoses / Procedures Referred By Contac t Referred To Contact CT IMAGING Diagnoses Abnormal weight loss Procedures CT CHEST W IVCON DIAGNOSTIC COMPUTED TOMOGRAPHY THORAX W/CONTRAST Martha Boston PA-C [address] [place] [address] Ct Imaging Referral ID Status Reason Start Date Expiration Date Visits Requested Visits Authorized [id number] Pending Review Auto-Generat ed Referral 07/02/2022 08/01/2023 1 1 Specialty Diagnoses / Procedures Referred By Contac t Referred To Contact Urology Diagnoses Bladder wall thickening Abnormal weight loss Procedures CONSULT TO UROLOGY OFFICE/OUTPATIENT [facility] 60-74 MINUTES Martha Boston PA-C [address] [place] [address] Referral ID Status Reason Start Date Expiration Date Visits Requested Visits Authorized [id number] Pending Review PCP Requested Referral 07/10/2022 07/10/2023 1 1 Specialty Diagnoses / Procedures Referred By Contac t Referred To Contact Neurology Diagnoses Type 2 diabetes mellitus with diabetic neuropathy, without long-term current use of insulin (HCC) Procedures CONSULT TO NEUROLOGY Franny Catalan APRN.CERTIFIED ANESTHESIOLOGIST ASSISTANT [address] [place] [address] Lemuel Troy Jr., MD [address] [place] [address] Referral ID Status Reason Start Date Expiration Date Visits Requested Visits Authorized [id number] Ref Not Required PCP Requested Referral 07/30/2023 1 1 Specialty Diagnoses / Procedures Referred By Contac t Referred To Contact Ophthalmology Diagnoses Type 2 diabetes mellitus with diabetic neuropathy, without long-term current use of insulin (HCC) Procedures CONSULT TO OPHTHALMOLOGY OFFICE/OUTPATIENT [facility] 60-74 MINUTES Martha Boston PA-C [address] [place] [phone] Referral ID Status Reason Start Date Expiration Date Visits Requested Visits Authorized [id number] Pending Review PCP Requested Referral 11/28/2022 11/28/2023 1 1 Specialty Diagnoses / Procedures Referred By Contac t Referred To Contact Diagnoses Hypersomnolence Snores Sleep initiation dysfunction Procedures CONSULT TO SLEEP MEDICINE - ADULT OFFICE/OUTPATIENT [facility] 60 MINUTES Nadir Grady MD [address] [place] [phone] Referral ID Status Reason Start Date Expiration Date Visits Requested Visits Authorized [id number] Authorized PCP Requested Referral 09/06/2024 09/06/2025 1 1 Specialty Diagnoses / Procedures Referred By Contac t Referred To Contact Pain Management Diagnoses Bilateral occipital neuralgia Cervicogenic headache Procedures CONSULT TO PAIN MGT OFFICE/OUTPATIENT [facility] 60 MINUTES Nadir Grady MD [address] [place] [address] Referral ID Status Reason Start Date Expiration Date Visits Requested Visits Authorized [id number] Authorized PCP Requested Referral 09/06/2024 09/06/2025 1 1 Specialty Diagnoses / Procedures Referred By Contac t Referred To Contact MR IMAGING Diagnoses Thunderclap headache New onset headache Procedures MRI BRAIN WO/W IVCON MRI BRAIN BRAIN STEM W/O W/CONTRAST MATERIAL Martha Boston PA-C [address] [place] [address] [place] [address] Referral ID Status Reason Start Date Expiration Date Visits Requested Visits Authorized [id number] Pending Review Auto-Genera melanie Referral Patient Cleared - Admin/Chair man/Directo r advise to proceed or did not respond 10/07/2024 11/06/2025 1 1 Referral ID Status Reason Start Date Expiration Date V isits Requested Visits Authorized [id number] Closed Auto-Generat ed Referral Patient Cleared - Admin/Chairm an/Director advise to proceed or did not respond 10/07/2024 08/31/2025 1 1 Medications Administered Section Inactive Administered [...] Date Dose Rate Site benzocaine 20% 4 Flushing (TOPEX) 4 Flushing, TOPICAL, ONCE, 1 dose, On Fri10/14/22 at 1130, APPLY orally per LIP prior to start of procedure - Pharmaceutical Waste: Aerosol -, Intraprocedure Given 10/14/2022 11:21 AM EST 4 Sprays lactated ringers iv infusion 30 mL/hr, INTRAVENOUS, CONTINUOUS, Starting on Fri10/14/22 at 1100, Until 10/14/22 at 1155, Preprocedure New Bag/Syringe/Bottle 10/14/2022 11:10 [...] ized section and content) DATE CREATED AUTHOR 02/24/2018 [facility] DATE CREATED AUTHOR AUTHOR'S ORGANIZ ATION 04/06/2022 [facility] nter DATE CREATED AUTHOR AUTHOR'S ORGANIZ ATION 08/25/2022 [facility] DATE CREATED AUTHOR AUTHOR'S ORGANIZ ATION 10/20/2022 [facility] DATE CREATED AUTHOR AUTHOR'S ORGANIZ ATION 03/06/2025 [facility] DATE CREATED AUTHOR AUTHOR'S ORGANIZ ATION 03/06/2025 [facility] Source Comments (unrecognize d section and content) In the event this informatio n is protected by the Federal Confidentiality of Alcohol and Drug Abuse Patient Records regulations: The Federal rules restrict any use of the information to criminally investigate or prosecute any alcohol or drug abuse patient.[facility] Center[facility] the event this information is protected by the Federal Confidentiality of Alcohol and Drug Abuse Patient Records regulations: The Federal rules restrict any use of the information to criminally investigate or prosecute any alcohol or drug abuse patient.[facility] CenterIn the event this information is protected by the Federal Confidentiality of Alcohol and Drug Abuse Patient Records regulations: The Federal rules restrict any use of the information to criminally investigate or prosecute any alcohol or drug abuse patient.[facility] CenterIn the event this information is protected by the Federal Confidentiality of Alcohol and Drug Abuse Patient Records regulations: The Federal rules restrict any use of the information to criminally investigate or prosecute any alcohol or drug abuse patient.[facility] CenterIn the event this information is protected by the Federal Confidentiality of Alcohol and Drug Abuse Patient Records regulations: The Federal rules restrict any use of the information to criminally investigate or prosecute any alcohol or drug abuse patient.[facility] CenterIn the event this information is protected by the Federal Confidentiality of Alcohol and Drug Abuse Patient Records regulations: The Federal rules restrict any use of the information to criminally investigate or prosecute any alcohol or drug abuse patient.[facility] CenterIn the event this information is protected by the Federal Confidentiality of Alcohol and Drug Abuse Patient Records regulations: The Federal rules restrict any use of the information to criminally investigate or prosecute any alcohol or drug abuse patient.[facility] CenterIn the event this information is protected by the Federal Confidentiality of Alcohol and Drug Abuse Patient Records regulations: The Federal rules restrict any use of the information to criminally investigate or prosecute any alcohol or drug abuse patient.[facility] CenterIn the event this information is protected by the Federal Confidentiality of Alcohol and Drug Abuse Patient Records regulations: The Federal rules restrict any use of the information to criminally investigate or prosecute any alcohol or drug abuse patient.[facility] CenterIn the event this information is protected by the Federal Confidentiality of Alcohol and Drug Abuse Patient Records regulations: The Federal rules restrict any use of the information to criminally investigate or prosecute any alcohol or drug abuse patient.[facility] CenterIn the event this information is protected by the Federal Confidentiality of Alcohol and Drug Abuse Patient Records regulations: The Federal rules restrict any use of the information to criminally investigate or prosecute any alcohol or drug abuse patient.[facility] CenterIn the event this information is protected by the Federal Confidentiality of Alcohol and Drug Abuse Patient Records regulations: The Federal rules restrict any use of the information to criminally investigate or prosecute any alcohol or drug abuse patient.[facility] CenterIn the event this information is protected by the Federal Confidentiality of Alcohol and Drug Abuse Patient Records regulations: The Federal rules restrict any use of the information to criminally investigate or prosecute any alcohol or drug abuse patient.[facility] CenterIn the event this information is protected by the Federal Confidentiality of Alcohol and Drug Abuse Patient Records regulations: The Federal rules restrict any use of the information to criminally investigate or prosecute any alcohol or drug abuse patient.[facility] CenterIn the event this information is protected by the Federal Confidentiality of Alcohol and Drug Abuse Patient Records regulations: The Federal rules restrict any use of the information to criminally investigate or prosecute any alcohol or drug abuse patient.[facility] CenterIn the event this information is protected by the Federal Confidentiality of Alcohol and Drug Abuse Patient Records regulations: The Federal rules restrict any use of the information to criminally investigate or prosecute any alcohol or drug abuse patient.[facility] CenterIn the event this information is protected by the Federal Confidentiality of Alcohol and Drug Abuse Patient Records regulations: The Federal rules restrict any use of the information to criminally investigate or prosecute any alcohol or drug abuse patient.[facility] CenterIn the event this information is protected by the Federal Confidentiality of Alcohol and Drug Abuse Patient Records regulations: The Federal rules restrict any use of the information to criminally investigate or prosecute any alcohol or drug abuse patient.[facility] CenterIn the event this information is protected by the Federal Confidentiality of Alcohol and Drug Abuse Patient Records regulations: The Federal rules restrict any use of the information to criminally investigate or prosecute any alcohol or drug abuse patient.[facility] CenterIn the event this information is protected by the Federal Confidentiality of Alcohol and Drug Abuse Patient Records regulations: The Federal rules restrict any use of the information to criminally investigate or prosecute any alcohol or drug abuse patient.[facility] CenterIn the event this information is protected by the Federal Confidentiality of Alcohol and Drug Abuse Patient Records regulations: The Federal rules restrict any use of the information to criminally investigate or prosecute any alcohol or drug abuse patient.[facility] CenterIn the event this information is protected by the Federal Confidentiality of Alcohol and Drug Abuse Patient Records regulations: The Federal rules restrict any use of the information to criminally investigate or prosecute any alcohol or drug abuse patient.[facility] CenterIn the event this information is protected by the Federal Confidentiality of Alcohol and Drug Abuse Patient Records regulations: The Federal rules restrict any use of the information to criminally investigate or prosecute any alcohol or drug abuse patient.[facility] CenterIn the event this information is protected by the Federal Confidentiality of Alcohol and Drug Abuse Patient Records regulations: The Federal rules restrict any use of the information to criminally investigate or prosecute any alcohol or drug abuse patient.[facility] CenterIn the event this information is protected by the Federal Confidentiality of Alcohol and Drug Abuse Patient Records regulations: The Federal rules restrict any use of the information to criminally investigate or prosecute any alcohol or drug abuse patient.[facility] CenterIn the event this information is protected by the Federal Confidentiality of Alcohol and Drug Abuse Patient Records regulations: The Federal rules restrict any use of the information to criminally investigate or prosecute any alcohol or drug abuse patient.[facility] CenterIn the event this information is protected by the Federal Confidentiality of Alcohol and Drug Abuse Patient Records regulations: The Federal rules restrict any use of the information to criminally investigate or prosecute any alcohol or drug abuse patient.[facility] CenterIn the event this information is protected by the Federal Confidentiality of Alcohol and Drug Abuse Patient Records regulations: The Federal rules restrict any use of the information to criminally investigate or prosecute any alcohol or drug abuse patient.[facility] CenterIn the event this information is protected by the Federal Confidentiality of Alcohol and Drug Abuse Patient Records regulations: The Federal rules restrict any use of the information to criminally investigate or prosecute any alcohol or drug abuse patient.[facility] CenterIn the event this information is protected by the Federal Confidentiality of Alcohol and Drug Abuse Patient Records regulations: The Federal rules restrict any use of the information to criminally investigate or prosecute any alcohol or drug abuse patient.[facility] CenterIn the event this information is protected by the Federal Confidentiality of Alcohol and Drug Abuse Patient Records regulations: The Federal rules restrict any use of the information to criminally investigate or prosecute any alcohol or drug abuse patient.[facility] CenterIn the event this information is protected by the Federal Confidentiality of Alcohol and Drug Abuse Patient Records regulations: The Federal rules restrict any use of the information to criminally investigate or prosecute any alcohol or drug abuse patient.[facility] CenterIn the event this information is protected by the Federal Confidentiality of Alcohol and Drug Abuse Patient Records regulations: The Federal rules restrict any use of the information to criminally investigate or prosecute any alcohol or drug abuse patient.[facility] CenterIn the event this information is protected by the Federal Confidentiality of Alcohol and Drug Abuse Patient Records regulations: The Federal rules restrict any use of the information to criminally investigate or prosecute any alcohol or drug abuse patient.[facility] CenterIn the event this information is protected by the Federal Confidentiality of Alcohol and Drug Abuse Patient Records regulations: The Federal rules restrict any use of the information to criminally investigate or prosecute any alcohol or drug abuse patient.[facility] CenterIn the event this information is protected by the Federal Confidentiality of Alcohol and Drug Abuse Patient Records regulations: The Federal rules restrict any use of the information to criminally investigate or prosecute any alcohol or drug abuse patient.[facility] CenterIn the event this information is protected by the Federal Confidentiality of Alcohol and Drug Abuse Patient Records regulations: The Federal rules restrict any use of the information to criminally investigate or prosecute any alcohol or drug abuse patient.[facility] CenterIn the event this information is protected by the Federal Confidentiality of Alcohol and Drug Abuse Patient Records regulations: The Federal rules restrict any use of the information to criminally investigate or prosecute any alcohol or drug abuse patient.[facility] CenterIn the event this information is protected by the Federal Confidentiality of Alcohol and Drug Abuse Patient Records regulations: The Federal rules restrict any use of the information to criminally investigate or prosecute any alcohol or drug abuse patient.[facility] CenterIn the event this information is protected by the Federal Confidentiality of Alcohol and Drug Abuse Patient Records regulations: The Federal rules restrict any use of the information to criminally investigate or prosecute any alcohol or drug abuse patient.[facility]In the event this information is protected by the Federal Confidentiality of Alcohol and Drug Abuse Patient Records regulations: The Federal rules restrict any use of the information to criminally investigate or prosecute any alcohol or drug abuse patient.[facility] CenterIn the event this information is protected by the Federal Confidentiality of Alcohol and Drug Abuse Patient Records regulations: The Federal rules restrict any use of the information to criminally investigate or prosecute any alcohol or drug abuse patient.[facility] CenterIn the event this information is protected by the Federal Confidentiality of Alcohol and Drug Abuse Patient Records regulations: The Federal rules restrict any use of the information to criminally investigate or prosecute any alcohol or drug abuse patient.[facility] CenterIn the event this information is protected by the Federal Confidentiality of Alcohol and Drug Abuse Patient Records regulations: The Federal rules restrict any use of the information to criminally investigate or prosecute any alcohol or drug abuse patient.[facility] CenterIn the event this information is protected by the Federal Confidentiality of Alcohol and Drug Abuse Patient Records regulations: The Federal rules restrict any use of the information to criminally investigate or prosecute any alcohol or drug abuse patient.[facility] CenterIn the event this information is protected by the Federal Confidentiality of Alcohol and Drug Abuse Patient Records regulations: The Federal rules restrict any use of the information to criminally investigate or prosecute any alcohol or drug abuse patient.[facility] CenterIn the event this information is protected by the Federal Confidentiality of Alcohol and Drug Abuse Patient Records regulations: The Federal rules restrict any use of the information to criminally investigate or prosecute any alcohol or drug abuse patient.[facility] CenterIn the event this information is protected by the Federal Confidentiality of Alcohol and Drug Abuse Patient Records regulations: The Federal rules restrict any use of the information to criminally investigate or prosecute any alcohol or drug abuse patient.[facility] CenterIn the event this information is protected by the Federal Confidentiality of Alcohol and Drug Abuse Patient Records regulations: The Federal rules restrict any use of the information to criminally investigate or prosecute any alcohol or drug abuse patient.[facility] CenterIn the event this information is protected by the Federal Confidentiality of Alcohol and Drug Abuse Patient Records regulations: The Federal rules restrict any use of the information to criminally investigate or prosecute any alcohol or drug abuse patient.[facility] CenterIn the event this information is protected by the Federal Confidentiality of Alcohol and Drug Abuse Patient Records regulations: The Federal rules restrict any use of the information to criminally investigate or prosecute any alcohol or drug abuse patient.[facility] CenterIn the event this information is protected by the Federal Confidentiality of Alcohol and Drug Abuse Patient Records regulations: The Federal rules restrict any use of the information to criminally investigate or prosecute any alcohol or drug abuse patient.[facility] CenterIn the event this information is protected by the Federal Confidentiality of Alcohol and Drug Abuse Patient Records regulations: The Federal rules restrict any use of the information to criminally investigate or prosecute any alcohol or drug abuse patient.[facility] CenterIn the event this information is protected by the Federal Confidentiality of Alcohol and Drug Abuse Patient Records regulations: The Federal rules restrict any use of the information to criminally investigate or prosecute any alcohol or drug abuse patient.[facility] CenterIn the event this information is protected by the Federal Confidentiality of Alcohol and Drug Abuse Patient Records regulations: The Federal rules restrict any use of the information to criminally investigate or prosecute any alcohol or drug abuse patient.[facility] CenterIn the event this information is protected by the Federal Confidentiality of Alcohol and Drug Abuse Patient Records regulations: The Federal rules restrict any use of the information to criminally investigate or prosecute any alcohol or drug abuse patient.[facility] CenterIn the event this information is protected by the Federal Confidentiality of Alcohol and Drug Abuse Patient Records regulations: The Federal rules restrict any use of the information to criminally investigate or prosecute any alcohol or drug abuse patient.[facility] CenterIn the event this information is protected by the Federal Confidentiality of Alcohol and Drug Abuse Patient Records regulations: The Federal rules restrict any use of the information to criminally investigate or prosecute any alcohol or drug abuse patient.[facility] CenterIn the event this information is protected by the Federal Confidentiality of Alcohol and Drug Abuse Patient Records regulations: The Federal rules restrict any use of the information to criminally investigate or prosecute any alcohol or drug abuse patient.[facility] CenterIn the event this information is protected by the Federal Confidentiality of Alcohol and Drug Abuse Patient Records regulations: The Federal rules restrict any use of the information to criminally investigate or prosecute any alcohol or drug abuse patient.[facility] CenterIn the event this information is protected by the Federal Confidentiality of Alcohol and Drug Abuse Patient Records regulations: The Federal rules restrict any use of the information to criminally investigate or prosecute any alcohol or drug abuse patient.[facility] CenterIn the event this information is protected by the Federal Confidentiality of Alcohol and Drug Abuse Patient Records regulations: The Federal rules restrict any use of the information to criminally investigate or prosecute any alcohol or drug abuse patient.[facility] CenterIn the event this information is protected by the Federal Confidentiality of Alcohol and Drug Abuse Patient Records regulations: The Federal rules restrict any use of the information to criminally investigate or prosecute any alcohol or drug abuse patient.[facility] CenterIn the event this information is protected by the Federal Confidentiality of Alcohol and Drug Abuse Patient Records regulations: The Federal rules restrict any use of the information to criminally investigate or prosecute any alcohol or drug abuse patient.[facility] CenterIn the event this information is protected by the Federal Confidentiality of Alcohol and Drug Abuse Patient Records regulations: The Federal rules restrict any use of the information to criminally investigate or prosecute any alcohol or drug abuse patient.[facility] CenterIn the event this information is protected by the Federal Confidentiality of Alcohol and Drug Abuse Patient Records regulations: The Federal rules restrict any use of the information to criminally investigate or prosecute any alcohol or drug abuse patient.[facility] CenterIn the event this information is protected by the Federal Confidentiality of Alcohol and Drug Abuse Patient Records regulations: The Federal rules restrict any use of the information to criminally investigate or prosecute any alcohol or drug abuse patient.[facility] CenterIn the event this information is protected by the Federal Confidentiality of Alcohol and Drug Abuse Patient Records regulations: The Federal rules restrict any use of the information to criminally investigate or prosecute any alcohol or drug abuse patient.[facility] CenterIn the event this information is protected by the Federal Confidentiality of Alcohol and Drug Abuse Patient Records regulations: The Federal rules restrict any use of the information to criminally investigate or prosecute any alcohol or drug abuse patient.[facility] CenterIn the event this information is protected by the Federal Confidentiality of Alcohol and Drug Abuse Patient Records regulations: The Federal rules restrict any use of the information to criminally investigate or prosecute any alcohol or drug abuse patient.[facility] CenterIn the event this information is protected by the Federal Confidentiality of Alcohol and Drug Abuse Patient Records regulations: The Federal rules restrict any use of the information to criminally investigate or prosecute any alcohol or drug abuse patient.[facility] CenterIn the event this information is protected by the Federal Confidentiality of Alcohol and Drug Abuse Patient Records regulations: The Federal rules restrict any use of the information to criminally investigate or prosecute any alcohol or drug abuse patient.[facility] CenterIn the event this information is protected by the Federal Confidentiality of Alcohol and Drug Abuse Patient Records regulations: The Federal rules restrict any use of the information to criminally investigate or prosecute any alcohol or drug abuse patient.[facility] CenterIn the event this information is protected by the Federal Confidentiality of Alcohol and Drug Abuse Patient Records regulations: The Federal rules restrict any use of the information to criminally investigate or prosecute any alcohol or drug abuse patient.[facility] CenterIn the event this information is protected by the Federal Confidentiality of Alcohol and Drug Abuse Patient Records regulations: The Federal rules restrict any use of the information to criminally investigate or prosecute any alcohol or drug abuse patient.[facility] CenterIn the event this information is protected by the Federal Confidentiality of Alcohol and Drug Abuse Patient Records regulations: The Federal rules restrict any use of the information to criminally investigate or prosecute any alcohol or drug abuse patient.[facility] CenterIn the event this information is protected by the Federal Confidentiality of Alcohol and Drug Abuse Patient Records regulations: The Federal rules restrict any use of the information to criminally investigate or prosecute any alcohol or drug abuse patient.[facility] CenterIn the event this information is protected by the Federal Confidentiality of Alcohol and Drug Abuse Patient Records regulations: The Federal rules restrict any use of the information to criminally investigate or prosecute any alcohol or drug abuse patient.[facility] CenterIn the event this information is protected by the Federal Confidentiality of Alcohol and Drug Abuse Patient Records regulations: The Federal rules restrict any use of the information to criminally investigate or prosecute any alcohol or drug abuse patient.[facility] CenterIn the event this information is protected by the Federal Confidentiality of Alcohol and Drug Abuse Patient Records regulations: The Federal rules restrict any use of the information to criminally investigate or prosecute any alcohol or drug abuse patient.[facility] CenterIn the event this information is protected by the Federal Confidentiality of Alcohol and Drug Abuse Patient Records regulations: The Federal rules restrict any use of the information to criminally investigate or prosecute any alcohol or drug abuse patient.[facility] CenterIn the event this information is protected by the Federal Confidentiality of Alcohol and Drug Abuse Patient Records regulations: The Federal rules restrict any use of the information to criminally investigate or prosecute any alcohol or drug abuse patient.[facility] CenterIn the event this information is protected by the Federal Confidentiality of Alcohol and Drug Abuse Patient Records regulations: The Federal rules restrict any use of the information to criminally investigate or prosecute any alcohol or drug abuse patient.[facility] CenterIn the event this information is protected by the Federal Confidentiality of Alcohol and Drug Abuse Patient Records regulations: The Federal rules restrict any use of the information to criminally investigate or prosecute any alcohol or drug abuse patient.[facility] CenterIn the event this information is protected by the Federal Confidentiality of Alcohol and Drug Abuse Patient Records regulations: The Federal rules restrict any use of the information to criminally investigate or prosecute any alcohol or drug abuse patient.[facility] CenterIn the event this information is protected by the Federal Confidentiality of Alcohol and Drug Abuse Patient Records regulations: The Federal rules restrict any use of the information to criminally investigate or prosecute any alcohol or drug abuse patient.[facility] CenterIn the event this information is protected by the Federal Confidentiality of Alcohol and Drug Abuse Patient Records regulations: The Federal rules restrict any use of the information to criminally investigate or prosecute any alcohol or drug abuse patient.[facility] CenterIn the event this information is protected by the Federal Confidentiality of Alcohol and Drug Abuse Patient Records regulations: The Federal rules restrict any use of the information to criminally investigate or prosecute any alcohol or drug abuse patient.[facility] CenterIn the event this information is protected by the Federal Confidentiality of Alcohol and Drug Abuse Patient Records regulations: The Federal rules restrict any use of the information to criminally investigate or prosecute any alcohol or drug abuse patient.[facility] CenterIn the event this information is protected by the Federal Confidentiality of Alcohol and Drug Abuse Patient Records regulations: The Federal rules restrict any use of the information to criminally investigate or prosecute any alcohol or drug abuse patient.[facility]In the event this information is protected by the Federal Confidentiality of Alcohol and Drug Abuse Patient Records regulations: The Federal rules restrict any use of the information to criminally investigate or prosecute any alcohol or drug abuse patient.[facility] CenterIn the event this information is protected by the Federal Confidentiality of Alcohol and Drug Abuse Patient Records regulations: The Federal rules restrict any use of the information to criminally investigate or prosecute any alcohol or drug abuse patient.[facility] CenterIn the event this information is protected by the Federal Confidentiality of Alcohol and Drug Abuse Patient Records regulations: The Federal rules restrict any use of the information to criminally investigate or prosecute any alcohol or drug abuse patient.[facility] CenterIn the event this information is protected by the Federal Confidentiality of Alcohol and Drug Abuse Patient Records regulations: The Federal rules restrict any use of the information to criminally investigate or prosecute any alcohol or drug abuse patient.[facility] CenterIn the event this information is protected by the Federal Confidentiality of Alcohol and Drug Abuse Patient Records regulations: The Federal rules restrict any use of the information to criminally investigate or prosecute any alcohol or drug abuse patient.[facility] CenterIn the event this information is protected by the Federal Confidentiality of Alcohol and Drug Abuse Patient Records regulations: The Federal rules restrict any use of the information to criminally investigate or prosecute any alcohol or drug abuse patient.[facility] CenterIn the event this information is protected by the Federal Confidentiality of Alcohol and Drug Abuse Patient Records regulations: The Federal rules restrict any use of the information to criminally investigate or prosecute any alcohol or drug abuse patient.[facility] CenterIn the event this information is protected by the Federal Confidentiality of Alcohol and Drug Abuse Patient Records regulations: The Federal rules restrict any use of the information to criminally investigate or prosecute any alcohol or drug abuse patient.[facility] CenterIn the event this information is protected by the Federal Confidentiality of Alcohol and Drug Abuse Patient Records regulations: The Federal rules restrict any use of the information to criminally investigate or prosecute any alcohol or drug abuse patient.[facility] CenterIn the event this information is protected by the Federal Confidentiality of Alcohol and Drug Abuse Patient Records regulations: The Federal rules restrict any use of the information to criminally investigate or prosecute any alcohol or drug abuse patient.[facility] CenterIn the event this information is protected by the Federal Confidentiality of Alcohol and Drug Abuse Patient Records regulations: The Federal rules restrict any use of the information to criminally investigate or prosecute any alcohol or drug abuse patient.[facility] CenterIn the event this information is protected by the Federal Confidentiality of Alcohol and Drug Abuse Patient Records regulations: The Federal rules restrict any use of the information to criminally investigate or prosecute any alcohol or drug abuse patient.[facility] CenterIn the event this information is protected by the Federal Confidentiality of Alcohol and Drug Abuse Patient Records regulations: The Federal rules restrict any use of the information to criminally investigate or prosecute any alcohol or drug abuse patient.[facility] CenterIn the event this information is protected by the Federal Confidentiality of Alcohol and Drug Abuse Patient Records regulations: The Federal rules restrict any use of the information to criminally investigate or prosecute any alcohol or drug abuse patient.[facility] CenterIn the event this information is protected by the Federal Confidentiality of Alcohol and Drug Abuse Patient Records regulations: The Federal rules restrict any use of the information to criminally investigate or prosecute any alcohol or drug abuse patient.[facility] CenterIn the event this information is protected by the Federal Confidentiality of Alcohol and Drug Abuse Patient Records regulations: The Federal rules restrict any use of the information to criminally investigate or prosecute any alcohol or drug abuse patient.[facility] CenterIn the event this information is protected by the Federal Confidentiality of Alcohol and Drug Abuse Patient Records regulations: The Federal rules restrict any use of the information to criminally investigate or prosecute any alcohol or drug abuse patient.[facility] CenterIn the event this information is protected by the Federal Confidentiality of Alcohol and Drug Abuse Patient Records regulations: The Federal rules restrict any use of the information to criminally investigate or prosecute any alcohol or drug abuse patient.[facility] CenterIn the event this information is protected by the Federal Confidentiality of Alcohol and Drug Abuse Patient Records regulations: The Federal rules restrict any use of the information to criminally investigate or prosecute any alcohol or drug abuse patient.[facility] CenterIn the event this information is protected by the Federal Confidentiality of Alcohol and Drug Abuse Patient Records regulations: The Federal rules restrict any use of the information to criminally investigate or prosecute any alcohol or drug abuse patient.[facility] CenterIn the event this information is protected by the Federal Confidentiality of Alcohol and Drug Abuse Patient Records regulations: The Federal rules restrict any use of the information to criminally investigate or prosecute any alcohol or drug abuse patient.[facility] CenterIn the event this information is protected by the Federal Confidentiality of Alcohol and Drug Abuse Patient Records regulations: The Federal rules restrict any use of the information to criminally investigate or prosecute any alcohol or drug abuse patient.[facility] CenterIn the event this information is protected by the Federal Confidentiality of Alcohol and Drug Abuse Patient Records regulations: The Federal rules restrict any use of the information to criminally investigate or prosecute any alcohol or drug abuse patient.[facility] CenterIn the event this information is protected by the Federal Confidentiality of Alcohol and Drug Abuse Patient Records regulations: The Federal rules restrict any use of the information to criminally investigate or prosecute any alcohol or drug abuse patient.[facility] CenterIn the event this information is protected by the Federal Confidentiality of Alcohol and Drug Abuse Patient Records regulations: The Federal rules restrict any use of the information to criminally investigate or prosecute any alcohol or drug abuse patient.[facility] CenterIn the event this information is protected by the Federal Confidentiality of Alcohol and Drug Abuse Patient Records regulations: The Federal rules restrict any use of the information to criminally investigate or prosecute any alcohol or drug abuse patient.[facility] CenterIn the event this information is protected by the Federal Confidentiality of Alcohol and Drug Abuse Patient Records regulations: The Federal rules restrict any use of the information to criminally investigate or prosecute any alcohol or drug abuse patient.[facility] CenterIn the event this information is protected by the Federal Confidentiality of Alcohol and Drug Abuse Patient Records regulations: The Federal rules restrict any use of the information to criminally investigate or prosecute any alcohol or drug abuse patient.[facility] CenterIn the event this information is protected by the Federal Confidentiality of Alcohol and Drug Abuse Patient Records regulations: The Federal rules restrict any use of the information to criminally investigate or prosecute any alcohol or drug abuse patient.[facility] CenterIn the event this information is protected by the Federal Confidentiality of Alcohol and Drug Abuse Patient Records regulations: The Federal rules restrict any use of the information to criminally investigate or prosecute any alcohol or drug abuse patient.[facility] CenterIn the event this information is protected by the Federal Confidentiality of Alcohol and Drug Abuse Patient Records regulations: The Federal rules restrict any use of the information to criminally investigate or prosecute any alcohol or drug abuse patient.[facility] CenterIn the event this information is protected by the Federal Confidentiality of Alcohol and Drug Abuse Patient Records regulations: The Federal rules restrict any use of the information to criminally investigate or prosecute any alcohol or drug abuse patient.[facility] CenterIn the event this information is protected by the Federal Confidentiality of Alcohol and Drug Abuse Patient Records regulations: The Federal rules restrict any use of the information to criminally investigate or prosecute any alcohol or drug abuse patient.[facility] CenterIn the event this information is protected by the Federal Confidentiality of Alcohol and Drug Abuse Patient Records regulations: The Federal rules restrict any use of the information to criminally investigate or prosecute any alcohol or drug abuse patient.[facility] CenterIn the event this information is protected by the Federal Confidentiality of Alcohol and Drug Abuse Patient Records regulations: The Federal rules restrict any use of the information to criminally investigate or prosecute any alcohol or drug abuse patient.[facility] CenterIn the event this information is protected by the Federal Confidentiality of Alcohol and Drug Abuse Patient Records regulations: The Federal rules restrict any use of the information to criminally investigate or prosecute any alcohol or drug abuse patient.[facility] CenterIn the event this information is protected by the Federal Confidentiality of Alcohol and Drug Abuse Patient Records regulations: The Federal rules restrict any use of the information to criminally investigate or prosecute any alcohol or drug abuse patient.[facility] CenterIn the event this information is protected by the Federal Confidentiality of Alcohol and Drug Abuse Patient Records regulations: The Federal rules restrict any use of the information to criminally investigate or prosecute any alcohol or drug abuse patient.[facility] CenterIn the event this information is protected by the Federal Confidentiality of Alcohol and Drug Abuse Patient Records regulations: The Federal rules restrict any use of the information to criminally investigate or prosecute any alcohol or drug abuse patient.[facility] CenterIn the event this information is protected by the Federal Confidentiality of Alcohol and Drug Abuse Patient Records regulations: The Federal rules restrict any use of the information to criminally investigate or prosecute any alcohol or drug abuse patient.[facility] CenterIn the event this information is protected by the Federal Confidentiality of Alcohol and Drug Abuse Patient Records regulations: The Federal rules restrict any use of the information to criminally investigate or prosecute any alcohol or drug abuse patient.[facility] CenterIn the event this information is protected by the Federal Confidentiality of Alcohol and Drug Abuse Patient Records regulations: The Federal rules restrict any use of the information to criminally investigate or prosecute any alcohol or drug abuse patient.[facility] CenterIn the event this information is protected by the Federal Confidentiality of Alcohol and Drug Abuse Patient Records regulations: The Federal rules restrict any use of the information to criminally investigate or prosecute any alcohol or drug abuse patient.[facility] CenterIn the event this information is protected by the Federal Confidentiality of Alcohol and Drug Abuse Patient Records regulations: The Federal rules restrict any use of the information to criminally investigate or prosecute any alcohol or drug abuse patient.[facility] CenterIn the event this information is protected by the Federal Confidentiality of Alcohol and Drug Abuse Patient Records regulations: The Federal rules restrict any use of the information to criminally investigate or prosecute any alcohol or drug abuse patient.[facility] CenterIn the event this information is protected by the Federal Confidentiality of Alcohol and Drug Abuse Patient Records regulations: The Federal rules restrict any use of the information to criminally investigate or prosecute any alcohol or drug abuse patient.[facility] CenterIn the event this information is protected by the Federal Confidentiality of Alcohol and Drug Abuse Patient Records regulations: The Federal rules restrict any use of the information to criminally investigate or prosecute any alcohol or drug abuse patient.[facility] CenterIn the event this information is protected by the Federal Confidentiality of Alcohol and Drug Abuse Patient Records regulations: The Federal rules restrict any use of the information to criminally investigate or prosecute any alcohol or drug abuse patient.[facility] CenterIn the event this information is protected by the Federal Confidentiality of Alcohol and Drug Abuse Patient Records regulations: The Federal rules restrict any use of the information to criminally investigate or prosecute any alcohol or drug abuse patient.[facility] Reason for Visit (unrecogniz ed section and content) Reason Comments Results Reason Comments Medication Problem Reason Comments outside [...] CT HEAD/BRAIN W/O CONTRAST MATERIAL Jenna Jim, BRAILLE PROOFREADER.CERTIFIED ANESTHESIOLOGIST ASSISTANT [address] [place] [address] Ct Imaging Referral ID Status Reason Start Date Expiration Date V isits Requested Visits Authorized [id number] Closed Auto-Generat ed Referral Patient Cleared - [...] Is also having head pain Reason Comments [facility] Reason Comments Results Reason Comments Consult Colonoscopy, anemia, no prior colonoscopy Specialty Diagnoses / Procedures Referred By Carlos t Referred To Contact General Surgery Diagnoses Anemia, unspecified type Procedures CONSULT TO GENERAL SURGERY OFFICE/OUTPATIENT [facility] 60-74 MINUTES Martha Boston PA-C [address] [place] [address] Referral ID Status Reason Start Date Expiration Date Visits Requested Visits Authorized [id number] Pending Review PCP Requested Referral 2 06/26/2023 [...] Hypotension Specialty Diagnoses / Procedures Referred By Carlos t Referred To Contact Neurology Diagnoses Orthostatic hypotension Procedures CONSULT TO NEUROLOGY OFFICE/OUTPATIENT [facility] 60-74 MINUTES Jenna Jim APRN.CERTIFIED ANESTHESIOLOGIST ASSISTANT [address] [place] [address] Referral ID Status Reason Start Date Expiration Date Visits Requested Visits Authorized [id number] Pending Review PCP Requested Referral 02/22/2022 02/22/2023 [...] ABD & PELVIS W/CONTRAST Martha Boston PA-C [id number] [place] [address] Referral ID Status Reason Start Date Expiration Date V isits Requested Visits Authorized [id number] Closed Auto-Generate d Referral 07/09/2022 08/08/2022 2 2 Reason Comments Radiology US Specialty Diagnoses / Procedures Referred By Contac t Referred To Contact US IMAGING Diagnoses Abnormal weight loss Procedures US ABD RT UPPER QUADRANT US ABDOMINAL REAL TIME W/IMAGE LIMITED Martha Boston PA-C [address] [place] [address] [place] [address] Referral ID Status Reason Start Date Expiration Date V isits Requested Visits Authorized [id number] Closed Auto-Generate d Referral 06/25/2022 07/25/2023 1 1 Reason Comments ER Discharge Summary X-ray, H&P Reason Comments Outside Cardiology Cardiac Cath, Echo Reason Comments ER Discharge Summary X-ray Reason Comments Acute Visit Swelling in upper, l ower lips & tongue post OTC KANK-A use Reason Comments Outside Imaging Reason Comments [facility] ER report 10/23/23 Reason Comments External / [facility] EKG Reason Comments Wrist/forearm Injury left x 3 days, hit with 2x4 board on arm, bruising Reason Comments Ext / [facility] Reason Onset Date Comments Refill Request 02/20/2024 Reason Onset Date Comments Population Health Navigation Outreach 03/10/2024 [employer] work[employer] [place] Reason Comments Outside Cardiology Reason Comments External / ER Report & H&P hospitalist Reason Comments Medicare Wellness Exam Reason Comments Wrist/forearm Injury right wrist pain x 1 day, fall Reason Comments Consult Outside Cardiology Reason Comments Results Outside results Reason Comments Mouth Sores Sore in mouth on bot ingris front gum area x 1 day Reason Comments Procedure Outside result - Hea rt Cath Reason Onset Date Comments Refill Request 08/21/2024 Reason Comments ED Follow-up Reason Comments Outside Hfcy-Iml-ANP Ordered Reason Comments Head Pain X 1 week Specialty Diagnoses / Procedures Referred By Carlos neff Referred To Contact MR IMAGING Diagnoses Thunderclap headache New onset headache Procedures MRI BRAIN WO/W IVCON MRI BRAIN BRAIN STEM W/O W/CONTRAST MATERIAL Martha Boston PA-C [address] [place] [address] [place] [address] Referral ID Status Reason Start Date Expiration Date V isits Requested Visits Authorized [id number] Closed Auto-Generat ed Referral Patient Cleared - Admin/Chairm an/Director advise to proceed or did not respond 10/07/2024 08/31/2025 1 1 Reason Comments New Patient Evaluation Specialty Diagnoses / Procedures Referred By Carlos neff Referred To Contact Diagnoses Hypersomnolence Snores Sleep initiation dysfunction Procedures CONSULT TO SLEEP MEDICINE - ADULT OFFICE/OUTPATIENT NEW HIGH MDM 60 MINUTES Nadir Grady MD [address] [place] [address] Phone: tel: fax: Referral ID Status Reason Start Date Expiration Date V isits Requested Visits Authorized [id number] Closed PCP Requested Referral 09/06/2024 09/06/2025 1 1 Reason Comments Outside MRI Reason Onset Date Comments Care Coordination 12/15/2024 Panel Manageme nt Review for Pharmacist Referral for Diabetes Management Reason Onset Date Comments Refill Request 01/27/2025 Reason Onset Date Comments Refill Request 02/23/2025 Reason Comments Abstract [facility] ED visit, withou t admission Care Teams (unrecognized sec tion and content) Binder Selector Relationship Specialty Start Date End Date Nadir Grady MD [address] [place] [address] PCP - General Family Practice 08/04/15 [facility] [address] [place] [address] Pharmacist Pharmacy 10/20/20 [facility] [address] [place] [address] Pharmacist Pharmacy 03/15/21 Binder Selector Relationship Specialty Start Date End Date Nadir Grady MD [address] [place] [address] PCP - General Family Practice 08/04/15 [facility] [address] [place] [address] Pharmacist Pharmacy 10/20/20 [facility] [address] [place] [address] Pharmacist Pharmacy 03/15/21 Binder Selector Relationship Specialty Start Date End Date Nadir Grady MD [address] [place] [address] PCP - General Family Practice 08/04/15 [facility] [address] [place] [address] Pharmacist Pharmacy 10/20/20 [facility] [address] [place] [address] Pharmacist Pharmacy 03/15/21 Binder Selector Relationship Specialty Start Date End Date Nadir Grady MD [address] [place] [address] PCP - General Family Practice 08/04/15 [facility]Ar[facility] [address] [place] [address] Pharmacist Pharmacy 10/20/20 [facility]University [facility] [address] [place] [address] Pharmacist Pharmacy 03/15/21 Binder Selector Relationship Specialty Start Date End Date Nadir Grady MD [address] [place] [address] PCP - General Family Practice 08/04/15 [facility] [address] [place] [address] Pharmacist Pharmacy 10/20/20 [place] [facility] [address] [place] [address] Pharmacist Pharmacy 03/15/21 Binder Selector Relationship Specialty Start Date End Date Nadir Grady MD [address] [place] [address] PCP - General Family Practice 08/04/15 [facility] [address] [place] [address] Pharmacist Pharmacy 10/20/20 [facility] [address] [place] [address] Pharmacist Pharmacy 03/15/21 Yolanda Dean (Camelia) Jem[address] Reeves [facility] [address] Referring Pulmonary and Critical Care Medicine 02/07/22 Binder Selector Relationship Specialty Start Date End Date Nadir Grady MD [address] [place] [address] PCP - General Family Practice 08/04/15 Toddsilvia [facility] [address] [place] [address] Pharmacist Pharmacy 10/20/20 Feliz, [facility] [address] [place] [address] Pharmacist Pharmacy 03/15/21 Yolanda Dean (Pa) [address] [facility] [address] Referring Pulmonary and Critical Care Medicine 02/07/22 Binder Selector Relationship Specialty Start Date End Date Nadir Grady MD [address] [place] [address] PCP - General Family Practice 08/04/15 [facility] [address] [place] [address] Pharmacist Pharmacy 10/20/20 [facility] [address] [place] [address] Pharmacist Pharmacy 03/15/21 Yolanda Dean (Pa) [address] [facility] [address] Referring Pulmonary and Critical Care Medicine 02/07/22 Binder Selector Relationship Specialty Start Date End Date Nadir Grady MD [address] [place] [address] PCP - General Family Practice 08/04/15 [facility]Ar[facility] [address] [place] [address] Pharmacist Pharmacy 10/20/20 FelizKaren flor, [facility] [address] [place] [address] Pharmacist Pharmacy 03/15/21 Yolanda Dean (Pa) [address] [facility] [place] [address] Referring Pulmonary and Critical Care Medicine 02/07/22 Binder Selector Relationship Specialty Start Date End Date Nadir Grady MD [address] [place] [address] PCP - General Family Practice 08/04/15 [facility] [address] [place] [address] Pharmacist Pharmacy 10/20/20 [place] [facility] [address] [place] [address] Pharmacist Pharmacy 03/15/21 Yolanda Dean (Pa) [address] [place] [address] Referring Pulmonary and Critical Care Medicine 02/07/22 Binder Selector Relationship Specialty Start Date End Date Nadir Grady MD [address] [place] [address] PCP - General Family Practice 08/04/15 [facility] [address] [place] [address] Pharmacist Pharmacy 10/20/20 [place], [facility] [address] [place] [address] Pharmacist Pharmacy 03/15/21 Yolanda Dean (Pa) [address] [place] [address] Referring Pulmonary and Critical Care Medicine 02/07/22 Binder Selector Relationship Specialty Start Date End Date Nadir Grady MD [address] [place] [address] PCP - General Family Practice 08/04/15 ToddArnaud ev[facility] [address] [place] [address] Pharmacist Pharmacy 10/20/20 [place] [facility] [address] [place] [address] Pharmacist Pharmacy 03/15/21 Yolanda Dean (Pa) [address] [facility] [address] Referring Pulmonary and Critical Care Medicine 02/07/22 Binder Selector Relationship Specialty Start Date End Date Nadir Grady MD [address] [place] [address] PCP - General Family Practice 08/04/15 [facility]Ar[facility] [address] [place] [address] Pharmacist Pharmacy 10/20/20 [place] [facility] [address] [place] [address] Pharmacist Pharmacy 03/15/21 Yolanda Dean (Pa) [address] [place] [address] Referring Pulmonary and Critical Care Medicine 02/07/22 Binder Selector Relationship Specialty Start Date End Date Nadir Grady MD [address] [place] [address] PCP - General Family Practice 08/04/15 [facility] [address] [place] [address] Pharmacist Pharmacy 10/20/20 [facility] [address] [place] [address] Pharmacist Pharmacy 03/15/21 Yolanda Dean (Pa) [address] [facility] [address] Referring Pulmonary and Critical Care Medicine 02/07/22 Binder Selector Relationship Specialty Start Date End Date Nadir Grady MD [address] [place] [address] PCP - General Family Practice 08/04/15 [facility] [address] [place] [address] Pharmacist Pharmacy 10/20/20 [facility] [address] [place] [address] Pharmacist Pharmacy 03/15/21 Yolanda Dean (Pa) [address] [place] [address] Referring Pulmonary and Critical Care Medicine 02/07/22 Binder Selector Relationship Specialty Start Date End Date Nadir Grady MD [address] [place] [address] PCP - General Family Practice 08/04/15 Toddsilvia [facility] [address] [place] [address] Pharmacist Pharmacy 10/20/20 [facility] [address] [place] [address] Pharmacist Pharmacy 03/15/21 Yolanda Dean (Pa) [address] [facility] [address] Referring Pulmonary and Critical Care Medicine 02/07/22 Binder Selector Relationship Specialty Start Date End Date Nadir Grady MD [address] [place] [address] PCP - General Family Practice 08/04/15 [facility] [address] [place] [address] Pharmacist Pharmacy 10/20/20 [place] [facility] [address] [place] [address] Pharmacist Pharmacy 03/15/21 Yolanda Dean (Pa) [address] [place] [address] Referring Pulmonary and Critical Care Medicine 02/07/22 Binder Selector Relationship Specialty Start Date End Date Nadir Grady MD [address] [place] [address] PCP - General Family Practice 08/04/15 [facility] [address] [place] [address] Pharmacist Pharmacy 10/20/20 Feliz [facility] [address] [place] [address] Pharmacist Pharmacy 03/15/21 Yolanda Dean (Pa) [address] [place] [address] Referring Pulmonary and Critical Care Medicine 02/07/22 Binder Selector Relationship Specialty Start Date End Date Nadir Grady MD [address] [place] [address] PCP - General Family Practice 08/04/15 [facility] [address] [place] [address] Pharmacist Pharmacy 10/20/20 FelizKaren florUniversity [facility] [address] [place] [address] Pharmacist Pharmacy 03/15/21 Yolanda Dean (Pa) [address] [facility] [address] Referring Pulmonary and Critical Care Medicine 02/07/22 Binder Selector Relationship Specialty Start Date End Date Nadir Grady MD [address] [place] [address] PCP - General Family Practice 08/04/15 [facility] [address] [place] [address] Pharmacist Pharmacy 10/20/20 [facility] [address] [place] [address] Pharmacist Pharmacy 03/15/21 Yolanda Dean (Pa) [address] [facility] [place] [address] Referring Pulmonary and Critical Care Medicine 02/07/22 Binder Selector Relationship Specialty Start Date End Date Nadir Grady MD [address] [place] [address] PCP - General Family Medicine 08/04/15 [facility] [address] [place] [address] Pharmacist Pharmacy 10/20/20 Feliz [facility] [address] [facility] [place] [address] Pharmacist Pharmacy 03/15/21 Yolanda Dean (Pa) [address] [facility] [place] [address] Referring Pulmonary and Critical Care Medicine 02/07/22 Binder Selector Relationship Specialty Start Date End Date Nadir Grady MD [address] [place] [address] PCP - General Family Medicine 08/04/15 [facility] [address] [place] [address] Pharmacist Pharmacy 10/20/20 [place] [facility] [address] [place] [address] Pharmacist Pharmacy 03/15/21 Yolanda Dean (Pa) [address] [facility] [place] [address] Referring Pulmonary and Critical Care Medicine 02/07/22 Binder Selector Relationship Specialty Start Date End Date Nadir Grady MD [address] [place] [address] PCP - General Family Medicine 08/04/15 [facility] [address] [place] [address] Pharmacist Pharmacy 10/20/20 [facility] [address] [place] [address] Pharmacist Pharmacy 03/15/21 Yolanda Dean (Pa) [address] [facility] [place] [address] Referring Pulmonary and Critical Care Medicine 02/07/22 Binder Selector Relationship Specialty Start Date End Date Nadir Grady MD [address] [place] [address] PCP - General Family Medicine 08/04/15 Toddsilvia BriankatiUniversity [facility] [address] [place] [address] Pharmacist Pharmacy 10/20/20 [place] [facility] [address] [place] [address] Pharmacist Pharmacy 03/15/21 Yolanda Dean (Pa) [address] [facility] [address] Referring Pulmonary and Critical Care Medicine 02/07/22 Binder Selector Relationship Specialty Start Date End Date Nadir Grady MD [address] [place] [address] PCP - General Family Medicine 08/04/15 Sharri [facility] [address] [place] [address] Pharmacist Pharmacy 10/20/20 Feliz [facility] [address] [place] [address] Pharmacist Pharmacy 03/15/21 Yolanda Dean (Pa) [address] [facility] [address] Referring Pulmonary and Critical Care Medicine 02/07/22 Binder Selector Relationship Specialty Start Date End Date Nadir Grady MD [address] [place] [address] PCP - General Family Medicine 08/04/15 Arnaud Harrell, [facility] [address] [facility] [place] [address] Pharmacist Pharmacy 10/20/20 [facility] [address] [place] [address] Pharmacist Pharmacy 03/15/21 Yolanda Dean (Pa) [address] [facility] [address] Referring Pulmonary and Critical Care Medicine 02/07/22 Binder Selector Relationship Specialty Start Date End Date Nadir Grady MD [address] [place] [address] PCP - General Family Medicine 08/04/15 [facility] [address] [place] [address] Pharmacist Pharmacy 10/20/20 [facility] [address] [place] [address] Pharmacist Pharmacy 03/15/21 Yolanda Dean (Pa) [address] [facility] [address] Referring Pulmonary and Critical Care Medicine 02/07/22 Binder Selector Relationship Specialty Start Date End Date Nadir Grady MD [address] [place] [address] PCP - General Family Medicine 08/04/15 Arnaud Harrell, [facility] [address] [place] [address] Pharmacist Pharmacy 10/20/20 [facility] [address] [place] [address] Pharmacist Pharmacy 03/15/21 Yolanda Dean (Pa) [address] [facility] [address] Referring Pulmonary and Critical Care Medicine 02/07/22 Binder Selector Relationship Specialty Start Date End Date Nadir Grady MD [address] [place] [address] PCP - General Family Medicine 08/04/15 [facility] [address] [place] [address] Pharmacist Pharmacy 10/20/20 Feliz, [facility] [address] [place] [address] Pharmacist Pharmacy 03/15/21 Yolanda Dean (Pa) [address] [place] [address] Referring Pulmonary and Critical Care Medicine 02/07/22 Binder Selector Relationship Specialty Start Date End Date Nadir Grady MD [address] [place] [address] PCP - General Family Medicine 08/04/15 [facility] [address] [place] [address] Pharmacist Pharmacy 10/20/20 Feliz [facility] [address] [place] [address] Pharmacist Pharmacy 03/15/21 Yolanda Dean (Pa) [address] [facility] [address] Referring Pulmonary and Critical Care Medicine 02/07/22 Binder Selector Relationship Specialty Start Date End Date Nadir Grady MD [address] [place] [address] PCP - General Family Medicine 08/04/15 [facility] [address] [place] [address] Pharmacist Pharmacy 10/20/20 [facility] [address] [place] [address] Pharmacist Pharmacy 03/15/21 Yolanda Dean (Pa) [address] [facility] [address] Referring Pulmonary and Critical Care Medicine 02/07/22 Binder Selector Relationship Specialty Start Date End Date Nadir Grady MD [address] [place] [address] PCP - General Family Medicine 08/04/15 [facility] [address] [place] [address] Pharmacist Pharmacy 10/20/20 [facility] [address] [place] [address] Pharmacist Pharmacy 03/15/21 Yolanda Dean (Pa) [address] [facility] [address] Referring Pulmonary and Critical Care Medicine 02/07/22 Binder Selector Relationship Specialty Start Date End Date Nadir Grady MD [address] [place] [address] PCP - General Family Medicine 08/04/15 [facility] [address] [place] [address] Pharmacist Pharmacy 10/20/20 [facility] [address] [facility] [place] [address] Pharmacist Pharmacy 03/15/21 Yolanda Dean (Pa) [address] [facility] [place] [address] Referring Pulmonary and Critical Care Medicine 02/07/22 Binder Selector Relationship Specialty Start Date End Date Nadir Grady MD [address] [place] [address] PCP - General Family Medicine 08/04/15 [facility] [address] [place] [address] Pharmacist Pharmacy 10/20/20 [facility] [address] [place] [address] Pharmacist Pharmacy 03/15/21 Yolanda Dean (Pa) [address] [facility] [place] [address] Referring Pulmonary and Critical Care Medicine 02/07/22 Binder Selector Relationship Specialty Start Date End Date Nadir Grady MD [address] [place] [address] PCP - General Family Medicine 08/04/15 Sharri [facility] [address] [place] [address] Pharmacist Pharmacy 10/20/20 [facility] [address] [place] [address] Pharmacist Pharmacy 03/15/21 Yolanda Dean (Pa) [address] [facility] [place] [address] Referring Pulmonary and Critical Care Medicine 02/07/22 Binder Selector Relationship Specialty Start Date End Date Nadir Grady MD [address] [place] [address] PCP - General Family Medicine 08/04/15 [facility] [address] [place] [address] Pharmacist Pharmacy 10/20/20 [facility] [address] [place] [address] Pharmacist Pharmacy 03/15/21 Yolanda Dean (Pa) [address] [facility] [address] Referring Pulmonary and Critical Care Medicine 02/07/22 Binder Selector Relationship Specialty Start Date End Date Nadir Grady MD [address] [place] [address] PCP - General Family Medicine 08/04/15 [facility] [address] [place] [address] Pharmacist Pharmacy 10/20/20 [facility] [address] [place] [address] Pharmacist Pharmacy 03/15/21 Yolanda Dean (Pa) [address] [facility] [address] Referring Pulmonary and Critical Care Medicine 02/07/22 Binder Selector Relationship Specialty Start Date End Date Nadir Grady MD [address] [place] [address] PCP - General Family Medicine 08/04/15 ToddArnaud vega, [facility] [address] [place] [address] Pharmacist Pharmacy 10/20/20 Karen Piper, [facility] [address] [place] [address] Pharmacist Pharmacy 03/15/21 Yolanda Dean (Pa) [address] [facility] [address] Referring Pulmonary and Critical Care Medicine 02/07/22 Binder Selector Relationship Specialty Start Date End Date Nadir Grady MD [address] [place] [address] PCP - General Family Medicine 08/04/15 ToddArnaud vega, [facility] [address] [place] [address] Pharmacist Pharmacy 10/20/20 [facility] [address] [place] [address] Pharmacist Pharmacy 03/15/21 Yolanda Dean (Pa) [address] [facility] [address] Referring Pulmonary and Critical Care Medicine 02/07/22 Binder Selector Relationship Specialty Start Date End Date Nadir Grady MD [address] [place] [address] PCP - General Family Medicine 08/04/15 Toddsilvia Arnaud, [facility] [address] [place] [address] Pharmacist Pharmacy 10/20/20 Feliz Karen, [facility] [address] [place] [address] Pharmacist Pharmacy 03/15/21 Yolanda Dean (Pa) [address] [facility] [address] Referring Pulmonary and Critical Care Medicine 02/07/22 Binder Selector Relationship Specialty Start Date End Date Nadir Grady MD [address] [place] [address] PCP - General Family Medicine 08/04/15 [facility] [address] [place] [address] Pharmacist Pharmacy 10/20/20 [facility] [address] [place] [address] Pharmacist Pharmacy 03/15/21 Yolanda Dean (Pa) [address] [place] [address] Referring Pulmonary and Critical Care Medicine 02/07/22 Binder Selector Relationship Specialty Start Date End Date Nadir Grady MD [address] [place] [address] PCP - General Family Medicine 08/04/15 Arnaud Harrell, [facility] [address] [place] [address] Pharmacist Pharmacy 10/20/20 [facility] [address] [place] [address] Pharmacist Pharmacy 03/15/21 Yolanda Dean (Pa) [address] [facility] [address] Referring Pulmonary and Critical Care Medicine 02/07/22 Binder Selector Relationship Specialty Start Date End Date Nadir Grady MD [address] [place] [address] PCP - General Family Medicine 08/04/15 [facility] [address] [facility] [place] [address] Pharmacist Pharmacy 10/20/20 [facility] [address] [place] [address] Pharmacist Pharmacy 03/15/21 Yolanda Dean (Pa) [address] [place] [address] Referring Pulmonary and Critical Care Medicine 02/07/22 Binder Selector Relationship Specialty Start Date End Date Nadir Grady MD [address] [place] [address] PCP - General Family Medicine 08/04/15 [facility] [address] [place] [address] Pharmacist Pharmacy 10/20/20 [facility] [address] [facility] [place] [address] Pharmacist Pharmacy 03/15/21 Yolanda Dean (Pa) [address] [place] [address] Referring Pulmonary and Critical Care Medicine 02/07/22 Binder Selector Relationship Specialty Start Date End Date Nadir Grady MD [address] [place] [address] PCP - General Family Medicine 08/04/15 [facility] [address] [place] [address] Pharmacist Pharmacy 2/19/21 Feliz, Karen, [facility] [address] [place] [address] Pharmacist Pharmacy 03/15/21 Yolanda Dean (Pa) [address] [place] [address] Referring Pulmonary and Critical Care Medicine 02/07/22 Binder Selector Relationship Specialty Start Date End Date Nadir Grady MD [address] [facility] [place] [address] PCP - General Family Medicine 08/04/15 Arnaud Harrell, [facility] [address] [facility] [place] [address] Pharmacist Pharmacy 10/20/20 [facility] [address] [facility] [place] [address] Pharmacist Pharmacy 03/15/21 Yolanda Dean (Camelia) [address] [facility] [place] [address] Referring Pulmonary and Critical Care Medicine 02/07/22 Binder Selector Relationship Specialty Start Date End Date Nadir Grady MD [address] [place] [address] PCP - General Family Medicine 08/04/15 Arnaud Harrell, [facility] [address] [facility] [place] [address] Pharmacist Pharmacy 10/20/20 Feliz Karen, [facility] [address] [facility] [place] [address] Pharmacist Pharmacy 03/15/21 Yolanda Dean (Camelia) [address] [place] [address] Referring Pulmonary and Critical Care Medicine 02/07/22 Binder Selector Relationship Specialty Start Date End Date Nadir Grady MD [address] [place] [address] PCP - General Family Medicine 08/04/15 [facility] [address] [place] [address] Pharmacist Pharmacy 10/20/20 Karen Piper [facility] [address] [place] [address] Pharmacist Pharmacy 03/15/21 Yolanda Dean (Pa) [address] [place] [address] Referring Pulmonary and Critical Care Medicine 02/07/22 Team Status: Active Member Role Status Dates Dr. Nadir Grady MD Family Provider Active Dr. Nadir Grady MD Primary Care Provider Active Team Status: Inactive Member Role Status Dates Dr. Nadir Grady MD Primary Care Provider, Referri ng Provider Active Dr. Jd Kern MD Attending Provider Active Team Status: Active Member Role Status Dates Dr. Nadir Grady MD Primary Care Provider Active Dr. Jd Kern MD Attending Provider, Referring Provider, Other Provider Active Team Status: Active Member Role Status Dates Dr. Nadir Grady MD Primary Care Provider Active Cheli Diaz BRIQUETTE MAKER, BRIQUETTE MAKER-C Attending Provider Active Team Status: Inactive Member Role Status Dates Dr. Nadir Grady MD Primary Care Provider Active Dr. Jd Kern MD Attending Provider, Referring Pro vider Active Binder Selector Relationship Specialty Start Date End Date Nadir Grady MD [address] [place] [address] PCP - General Family Medicine 08/04/15 [facility] [address] [place] [address] Pharmacist Pharmacy 10/20/20 Karen Piper, [facility] [address] [place] [address] Pharmacist Pharmacy 03/15/21 Yolanda Dean PA [address] [place] [address] Referring Pulmonary and Critical Care Medicine 02/07/22 Binder Selector Relationship Specialty Start Date End Date Nadir Grady MD [address] [place] [address] PCP - General Family Medicine 08/04/15 Arnaud Harrell, [facility] [address] [place] [address] Pharmacist Pharmacy 10/20/20 Karen Piper, [facility] [address] [place] [address] Pharmacist Pharmacy 03/15/21 Yolanda Dean PA [address] [place] [address] Referring Pulmonary and Critical Care Medicine 02/07/22 Binder Selector Relationship Specialty Start Date End Date Nadir Grady MD [address] [place] [address] PCP - General Family Medicine 08/04/15 Arnaud Harrell, [facility] [address] [place] [address] Pharmacist Pharmacy 10/20/20 Karen Piper, [facility] [address] [place] [address] Pharmacist Pharmacy 03/15/21 Yolanda Dean PA [address] [place] [address] Referring Pulmonary and Critical Care Medicine 02/07/22 Binder Selector Relationship Specialty Start Date End Date Nadir Grady MD [address] [place] [address] PCP - General Family Medicine 08/04/15 [facility] [address] [place] [address] Pharmacist Pharmacy 10/20/20 Feliz, [facility] [address] [place] [address] Pharmacist Pharmacy 03/15/21 Yolanda Dean PA [address] [place] [address] Referring Pulmonary and Critical Care Medicine 02/07/22 Binder Selector Relationship Specialty Start Date End Date Nadir Grady MD [address] [place] [address] PCP - General Family Medicine 08/04/15 [facility]ud [facility] [address] [place] [address] Pharmacist Pharmacy 10/20/20 Feliz [facility] [address] [place] [address] Pharmacist Pharmacy 03/15/21 Yolanda Dean PA [address] [place] [address] Referring Pulmonary and Critical Care Medicine 02/07/22 Binder Selector Relationship Specialty Start Date End Date Nadir Grady MD [address] [facility] [place] [address] PCP - General Family Medicine 08/04/15 [facility] [address] [place] [address] Pharmacist Pharmacy 10/20/20 [place], [facility] [address] [facility] [place] [address] Pharmacist Pharmacy 03/15/21 Yolanda Dean PA [address] [facility] [place] [address] Referring Pulmonary and Critical Care Medicine 02/07/22 Binder Selector Relationship Specialty Start Date End Date Nadir Grady MD [address] [place] [address] PCP - General Family Medicine 08/04/15 [facility] [address] [facility] [place] [address] Pharmacist Pharmacy 10/20/20 [place], [facility] [address] [facility] [place] [address] Pharmacist Pharmacy 03/15/21 Yolanda Dean PA [address] [facility] [place] [address] Referring Pulmonary and Critical Care Medicine 02/07/22 Binder Selector Relationship Specialty Start Date End Date Nadir Grady MD [address] [facility] [place] [address] PCP - General Family Medicine 08/04/15 [facility] [address] [place] [address] Pharmacist Pharmacy 03/15/21 Yolanda Dean PA [address] [place] [address] Referring Pulmonary and Critical Care Medicine 02/07/22 Team Status: Inactive Member Role Status Dates Dr. Nadir Grady MD Primary Care Provider Active Dr. Jd Kern MD Attending Provider Active Team Status: Active Member Role Status Dates Dr. Nadir Grady MD Primary Care Provider Active Dr. Nicko Rabago MD Emergency Provider Active Dr. Gildardo Walton MD Admit Provider, A ttending Provider, Other Provider Active Team Status: Active Member Role Status Dates Dr. Nadir Grady MD Primary Care Provider Active Dr. Nicko Rabago MD Emergency Provider Active Dr. Gildardo Walton MD Admit Provider, Attending Provi luciano Active Team Status: Active Member Role Status Dates Dr. Nadir Grady MD Primary Care Provider Active Dr. Nicko Rabago MD Emergency Provider Active Dr. Gildardo Walton MD Admit Provider, Other Provider Active Dr. Ez Hurst MD Attending Provider, Other Provid er Active Dr. Foster Mayberry DO Other Provider Active Team Status: Active Member Role Status Dates Dr. Nadir Grady MD Primary Care Provider Active Dr. Nicko Rabago MD Emergency Provider Active Dr. Gildardo Walton MD Admit Provider, Other Provider Active Dr. Ez Hurst MD Other Provider Active Dr. Foster Mayberry DO Attending Provider, Other Provider Active Team Status: Inactive Member Role Status Dates Dr. Nadir Grady MD Primary Care Provider Active Dr. Nicko Rabago MD Emergency Provider Active Dr. Gildardo Walton MD Admit Provider, Other Provider Active Dr. Ez Hurst MD Other Provider Active Dr. Foster Mayberry DO Attending Provider Active Binder Selector Relationship Specialty Start Date End Date Nadir Grady MD [address] [place] [address] PCP - General Family Medicine 08/04/15 Karen Piper RPh [address] [place] [address] Pharmacist Pharmacy 03/15/21 Yolanda Dean PA [address] [place] [address] Referring Pulmonary and Critical Care Medicine 02/07/22 Team Status: Active Member Role Status Dates Dr. Nadir Grady MD Primary Care Provider Active Dr. Ez Hurst MD Attending Provider Active Team Status: Inactive Member Role Status Dates Dr. Nadir Grady MD Primary Care Provider Active Dr. Ivy Toribio MD Emergency Provider Active Binder Selector Relationship Specialty Start Date End Date Nadir Grady MD [address] [place] [address] PCP - General Family Medicine 08/04/15 [facility] [address] [place] [address] Pharmacist Pharmacy 03/15/21 Yolanda Dean PA [address] [place] [address] Referring Pulmonary and Critical Care Medicine 02/07/22 Team Status: Active Member Role Status Dates Dr. Nadir Grady MD Primary Care Provider Active Dr. Ez Hurst MD Attending Provider Active Dr. Gildardo Walton MD Referring Provider Active Team Status: Inactive Member Role Status Dates Dr. Nadir Grady MD Primary Care Provider Active Dr. Ivy Toribio MD Attending Provider, Emergency Provider Active Team Status: Inactive Member Role Status Dates Dr. Nadir Grady MD Primary Care Provider Active Dr. Jered Huff DO Emergency Provider Active Binder Selector Relationship Specialty Start Date End Date Nadir Grady MD [address] [place] [address] PCP - General Family Medicine 08/04/15 [place]onKaren, [facility] [address] [place] [address] Pharmacist Pharmacy 03/15/21 Yolanda Dean PA [address] [place] [address] Referring Pulmonary and Critical Care Medicine 02/07/22 Binder Selector Relationship Specialty Start Date End Date Nadir Grady MD [address] [place] [address] PCP - General Family Medicine 08/04/15 [place]onKaren, [facility] [address] [place] [address] Pharmacist Pharmacy 03/15/21 Yolanda Dean PA [address] [place] [address] Referring Pulmonary and Critical Care Medicine 02/07/22 Team Status: Inactive Member Role Status Dates Dr. Nadir Grady MD Primary Care Provider, Referri ng Provider Active Yolanda Dean PA, PA Attending Provider Active Team Status: Active Member Role Status Dates Dr. Nadir Grady MD Primary Care Provider Active Cheli Tanner Attending Provider Active Team Status: Active Member Role Status Dates Dr. Nadir Grady MD Primary Care Provider Active Dr. Jd Kern MD Attending Provider, Referring Pro vider Active Team Status: Inactive Member Role Status Dates Dr. Nadir Grady MD Primary Care Provider Active Dr. Jered Huff DO Attending Provider, Emergency P romone Active Team Status: Inactive Member Role Status Dates Dr. Nadir Grady MD Primary Care Provider Active Dr. Ez Hurst MD Attending Provider, Referring Pr ovider Active Team Status: Active Member Role Status Dates Dr. Nadir Grady MD Primary Care Provider Active Dr. Ez Hurst MD Attending Provider, Referring Pr ovider Active Team Status: Active Member Role Status Dates Dr. Nadir Grady MD Primary Care Provider Active Dr. Jered Huff , DO Emergency Provider Active Dr. Gildardo Walton MD Admit Provider, Attending Provi luciano Active Team Status: Active Member Role Status Dates Dr. Nadir Grady MD Primary Care Provider Active Dr. Jered Huff DO Emergency Provider Active Dr. Gildardo Walton MD Admit Provider, A ttending Provider, Other Provider Active Team Status: Inactive Member Role Status Dates Dr. Nadir Grady MD Primary Care Provider Active Dr. Jered Huff , Emergency Provider Active Dr. Gildardo Walton MD Admit Provider, Other Provider Active Dr. Martina Cr MD Attending Provider Active Binder Selector Relationship Specialty Start Date End Date Nadir Grady MD [address] [place] [address] PCP - General Family Medicine 08/04/15 [facility] [address] [place] [address] Pharmacist Pharmacy 03/15/21 Yolanda Dean PA [address] [place] [address] Referring Pulmonary and Critical Care Medicine 02/07/22 Binder Selector Relationship Specialty Start Date End Date Nadir Grady MD [address] [place] [address] PCP - General Family Medicine 08/04/15 [facility] [address] [place] [address] Pharmacist Pharmacy 03/15/21 Yolanda Dean PA [address] [place] [address] Referring Pulmonary and Critical Care Medicine 02/07/22 Team Status: Active Member Role Status Dates Dr. Nadir Grady MD Primary Care Provider Active Dr. Jered Huff , DO Emergency Provider Active Dr. Gildardo Walton MD Admit Provider, Other Provider Active Dr. Martina Cr MD Attending Provider, Other Prov ider Active Team Status: Active Member Role Status Dates Dr. Nadir Grady MD Primary Care Provider Active Dr. Jered Huff , Emergency Provider Active Dr. Gildardo Walton MD Admit Provider, Other Provider Active Dr. Martina Cr MD Other Provider Active Dr. Jd Kern MD Attending Provider Active Team Status: Active Member Role Status Dates Dr. Nadir Grady MD Primary Care Provider Active Dr. Jd Kern MD Attending Provider Active Dr. Gildardo Walton MD Referring Provider Active Binder Selector Relationship Specialty Start Date End Date Nadir Grady MD [address] [place] [address] PCP - General Family Medicine 08/04/15 [facility] [address] [place] [address] Pharmacist Pharmacy 10/20/20 09/30/23 [facility] [address] [place] [address] Pharmacist Pharmacy 03/15/21 Yolanda Vargas PA-C [address] [place] [address] Referring Pulmonary and Critical Care Medicine 02/07/22 Binder Selector Relationship Specialty Start Date End Date Nadir Grady MD [address] [place] [address] PCP - General Family Medicine 08/04/15 [facility] [address] [place] [address] Pharmacist Pharmacy 03/15/21 Yolanda Vargas PARiccardoC [address] [facility] [place] [address] Referring Pulmonary and Critical Care Medicine 02/07/22 Binder Selector Relationship Specialty Start Date End Date Nadir Grady MD [address] [facility] [place] [address] PCP - General Family Medicine 08/04/15 [place] [facility] [address] [facility] [place] [address] Pharmacist Pharmacy 03/15/21 Yolanda Vargas PA-C [address] [facility] [place] [address] Referring Pulmonary and Critical Care Medicine 02/07/22 Binder Selector Relationship Specialty Start Date End Date Nadir Grady MD [address] [place] [address] PCP - General Family Medicine 08/04/15 [place] [facility] [address] [facility] [place] [address] Pharmacist Pharmacy 03/15/21 Yolanda Vargas PA-C [address] [place] [address] Referring Pulmonary and Critical Care Medicine 02/07/22 Binder Selector Relationship Specialty Start Date End Date Nadir Grady MD [address] [place] [address] PCP - General Family Medicine 08/04/15 [place] [facility] [address] [facility] [place] [address] Pharmacist Pharmacy 03/15/21 Yolanda Vargas PA-C [address] [place] [address] Referring Pulmonary and Critical Care Medicine 02/07/22 Binder Selector Relationship Specialty Start Date End Date Nadir Grady MD [address] [facility] [place] [address] PCP - General Family Medicine 08/04/15 [facility] [address] [facility] [place] [address] Pharmacist Pharmacy 03/15/21 Yolanda Vargas PA-C [address] [facility] [place] [address] Referring Pulmonary and Critical Care Medicine 02/07/22 Binder Selector Relationship Specialty Start Date End Date Nadir Grady MD [address] [facility] [place] [address] PCP - General Family Medicine 08/04/15 [facility] [address] [facility] [place] [address] Pharmacist Pharmacy 10/20/20 09/30/23 [facility] [address] [facility] [place] [address] Pharmacist Pharmacy 03/15/21 Yolanda Vargas PA-C [address] [place] [address] Referring Pulmonary and Critical Care Medicine 02/07/22 Binder Selector Relationship Specialty Start Date End Date Nadir Grady MD [address] [facility] [place] [address] PCP - General Family Medicine 08/04/15 Arnaud Harrell, [facility] [address] [facility] [place] [address] Pharmacist Pharmacy 10/20/20 09/30/23 [facility] [address] [place] [address] Pharmacist Pharmacy 03/15/21 Yolanda Vargas PA-C [address] [place] [address] Referring Pulmonary and Critical Care Medicine 02/07/22 Binder Selector Relationship Specialty Start Date End Date Nadir Grady MD [address] [place] [address] PCP - General Family Medicine 08/04/15 [facility] [address] [place] [address] Pharmacist Pharmacy 10/20/20 09/30/23 [facility] [address] [place] [address] Pharmacist Pharmacy 03/15/21 Binder Selector Relationship Specialty Start Date End Date Nadir Grady MD [address] [place] [address] PCP - General Family Medicine 08/04/15 Binder Selector Relationship Specialty Start Date End Date Nadir Grady MD [address] [place] [address] PCP - General Family Medicine 08/04/15 Binder Selector Relationship Specialty Start Date End Date Nadir Grady MD [address] [place] [address] PCP - General Family Medicine 08/04/15 [facility] [address] [place] [address] Pharmacist Pharmacy 03/15/21 Yolanda Vargas PA-C [address] [facility] [place] [address] Referring Pulmonary and Critical Care Medicine 02/07/22 Binder Selector Relationship Specialty Start Date End Date Nadir Grady MD [address] [place] [address] PCP - General Family Medicine 08/04/15 [facility] [address] [place] [address] Pharmacist Pharmacy 03/15/21 Yolanda Vargas PA-C [address] [facility] [place] [address] Referring Pulmonary and Critical Care Medicine 02/07/22 Binder Selector Relationship Specialty Start Date End Date Nadir Grady MD [address] [facility] [place] [address] PCP - General Family Medicine 08/04/15 [facility] [address] [place] [address] Pharmacist Pharmacy 03/15/21 Yolanda Vargas PA-C [address] [facility] [place] [address] Referring Pulmonary and Critical Care Medicine 02/07/22 Binder Selector Relationship Specialty Start Date End Date Nadir Grady MD [address] [place] [address] PCP - General Family Medicine 08/04/15 [facility] [address] [place] [address] Pharmacist Pharmacy 03/15/21 Yolanda Vargas PA-C [address] [place] [address] Referring Pulmonary and Critical Care Medicine 02/07/22 Binder Selector Relationship Specialty Start Date End Date Nadir Grady MD [address] [place] [address] PCP - General Family Medicine 08/04/15 [facility] [address] [place] [address] Pharmacist Pharmacy 03/15/21 Yolanda Vargas PA-C [address] [place] [address] Referring Pulmonary and Critical Care Medicine 02/07/22 Binder Selector Relationship Specialty Start Date End Date Nadir Grady MD [address] [place] [address] PCP - General Family Medicine 08/04/15 [facility] [address] [place] [address] Pharmacist Pharmacy 03/15/21 Yolanda Vargas PA-C [address] [place] [address] Referring Pulmonary and Critical Care Medicine 02/07/22 Franny Catalan, COLLETTE.MIGEL [address] [facility] [place] [address] Road [facility] 08/07/24 Martha Boston PA-C [address] [place] [address] Road [facility] 08/07/24 Binder Selector Relationship Specialty Start Date End Date Nadir Grady MD [address] [place] [address] PCP - General Family Medicine 08/04/15 [place] [facility] [address] [place] [address] Pharmacist Pharmacy 03/15/21 Yolanda Vargas PA-C [address] [place] [address] Referring Pulmonary and Critical Care Medicine 02/07/22 Franny Catalan, BRAILLE PROOFREADER.CERTIFIED ANESTHESIOLOGIST ASSISTANT [address] [facility] [place] [address] Road [facility] 08/07/24 Martha Boston PA-C [address] [place] [address] [facility] [facility] 08/07/24 Binder Selector Relationship Specialty Start Date End Date Nadir Grady MD [address] [place] [address] PCP - General Family Medicine 08/04/15 [place] [facility] [address] [place] [address] Pharmacist Pharmacy 03/15/21 Yolanda Vargas PA-C [address] [place] [address] Referring Pulmonary and Critical Care Medicine 02/07/22 Franny Catalan, COLLETTE.CERTIFIED ANESTHESIOLOGIST ASSISTANT [address] [facility] [place] [address] Road [facility] 08/07/24 Martha Boston PA-C [address] [place] [address] Road Mender Family [facility] 08/07/24 Binder Selector Relationship Specialty Start Date End Date Nadir Grady MD [address] [place] [address] PCP - General Family Medicine 08/04/15 [place] [facility] [address] [place] [address] Pharmacist Pharmacy 03/15/21 Yolanda Vargas PA-C [address] [place] [address] Referring Pulmonary and Critical Care Medicine 02/07/22 Franny Catalan APRN.CERTIFIED ANESTHESIOLOGIST ASSISTANT [address] [place] [address] Road [facility] 08/07/24 Martha Boston PA-C [address] [place] [address] [facility]07/24 Binder Selector Relationship Specialty Start Date End Date Nadir Grady MD [address] [place] [address] PCP - General Family Medicine 08/04/15 [place] [facility] [address] [place] [address] Pharmacist Pharmacy 03/15/21 Yolanda Vargas PA-C [address] [place] [address] Referring Pulmonary and Critical Care Medicine 02/07/22 Franny Catalan APRN.CERTIFIED ANESTHESIOLOGIST ASSISTANT [address] [place] [address] Road [facility] 08/07/24 Martha Boston PA-C [address] [place] [address] Road M[facility] Family [facility] 08/07/24 Binder Selector Relationship Specialty Start Date End Date Nadir Grady MD [address] [place] [address] PCP - General Family Medicine 08/04/15 [place] [facility] [address] [facility] [place] [address] Pharmacist Pharmacy 03/15/21 Yolanda Vargas PA-C [address] [place] [address] Referring Pulmonary and Critical Care Medicine 02/07/22 Franny Catalan APRN.CERTIFIED ANESTHESIOLOGIST ASSISTANT [address] [facility] [place] [address] Road Mender [facility] 08/07/24 Martha Boston PA-C [address] [place] [address] [facility] 08/07/24 Binder Selector Relationship Specialty Start Date End Date Nadir Grady MD [address] [place] [address] PCP - General Family Medicine 08/04/15 [place] [facility], [facility] [address] [place] [address] Pharmacist Pharmacy 03/15/21 Yolanda Vargas PA-C [address] [place] [address] Referring Pulmonary and Critical Care Medicine 02/07/22 Franny Catalan APRN.CERTIFIED ANESTHESIOLOGIST ASSISTANT [address] [facility] [place] [address] Road [facility] 08/07/24 Martha Boston PA-C [address] [place] [address] Road [facility] 08/07/24 Binder Selector Relationship Specialty Start Date End Date Nadir Grady MD [address] [place] [address] PCP - General Family Medicine 08/04/15 [facility] [address] [place] [address] Pharmacist Pharmacy 03/15/21 Yolanda Dean PA-C [address] [place] [address] Referring Pulmonary and Critical Care Medicine 02/07/22 Franny Catalan, COLLETTE.CERTIFIED ANESTHESIOLOGIST ASSISTANT [address] [facility] [place] [address] Road Mender Family [facility] 08/07/24 Martha Boston PA-C [address] [place] [address] Road Mender Family [facility] 08/07/24 Binder Selector Relationship Specialty Start Date End Date Nadir Grady MD [address] [place] [address] PCP - General Family Medicine 08/04/15 [facility] [address] [place] [address] Pharmacist Pharmacy 03/15/21 Yolanda Dean PA-C [address] [place] [address] Referring Pulmonary and Critical Care Medicine 02/07/22 Franny Catalan, COLLETTE.CERTIFIED ANESTHESIOLOGIST ASSISTANT [address] [facility] [place] [address] Road M[facility] Family [facility] 08/07/24 Martha Boston PA-C [address] [place] [address] [facility] 08/07/24 Binder Selector Relationship Specialty Start Date End Date Nadir Grady MD [address] [place] [address] PCP - General Family Medicine 08/04/15 Karen Piper [facility] [address] [place] [address] Pharmacist Pharmacy 03/15/21 Yolanda Dean PA-C [address] [place] [address] Referring Pulmonary and Critical Care Medicine 02/07/22 Franny Catalan, COLLETTE.CERTIFIED ANESTHESIOLOGIST ASSISTANT [address] [facility] [place] [address] [facility] 08/07/24 Martha Boston PA-C [address] [place] [address] [facility] 08/07/24 Binder Selector Relationship Specialty Start Date End Date Nadir Grady MD [address] [place] [address] PCP - General Family Medicine 08/04/15 Karen Piper [facility] [address] [place], [place] [id number] Pharmacist Pharmacy 03/15/21 Yolanda Dean PA-C [address] [place], [place] [id number] Referring Pulmonary and Critical Care Medicine 02/07/22 Franny Catalan APRN.CERTIFIED ANESTHESIOLOGIST ASSISTANT [address] [place], [place] [id number] [facility] 08/07/24 Martha Boston PA-C [address] [place], [place] [id number] [facility] 08/07/24 Team Status: Active Member Role Status Dates Dr. Nadir Grady MD Primary Care Provider Active Team Status: Inactive Member Role Status Dates Dr. Nadir Grady MD Primary Care Provider Active Start: July 28, 2024 End: July 28, 2024 Dr. Nadir Grady MD Referring Provider Active Start: July 28, 2024 End: July 28, 2024 Yolanda DENISE PA Attending Provider Active Start: July 28, 2024 End: July 28, 2024 Team Status: Inactive Member Role Status Dates Dr. Nadir Grady MD Primary Care Provider Active Start: July 28, 2024 End: July 28, 2024 Yolanda DENISE, PA Attending Provider Active Start: July 28, 2024 End: July 28, 2024 Yolanda DENISE PA Referring Provider Active Start: July 28, 2024 End: July 28, 2024 Team Status: Inactive Member Role Status Dates Dr. Nadir Grady MD Primary Care Provider Active Start: August 16, 2024 End: August 16, 2024 Dr. Jd Kern MD Attending Provider Active S tart: August 16, 2024 End: August 16, 2024 Dr. Jd Kern MD Referring Provider Active S tart: August 16, 2024 End: August 16, 2024 Team Status: Active Member Role Status Dates Dr. Nadir Grady MD Primary Care Provider Active Start: August 17, 2024 Dr. Jd Kern MD Attending Provider Active S tart: August 17, 2024 Team Status: Inactive Member Role Status Dates Dr. Nadir Grady MD Primary Care Provider Active Start: August 27, 2024 End: August 27, 2024 Dr. Juan Luis Rubio DO Attending Provider Active Start: August 27, 2024 End: August 27, 2024 Dr. Juan Luis Rubio DO Emergency Provider Active Start: August 27, 2024 End: August 27, 2024 Team Status: Inactive Member Role Status Dates Dr. Nadir Grady MD Primary Care Provider Active Start: September 08, 2024 End: September 08, 2024 Dr. Nadir Grady MD Referring Provider Active Start: September 08, 2024 End: September 08, 2024 Yolanda Dean PA, PA Attending Provider Active Start: September 08, 2024 End: September 08, 2024 Team Status: Inactive Member Role Status Dates Dr. Nadir Grady MD Primary Care Provider Active Start: September 20, 2024 End: September 20, 2024 Dr. aHny Paz MD Attending Provider Active Start: September 20, 2024 End: September 20, 2024 Dr. Hany Paz MD Referring Provider Active Start: September 20, 2024 End: September 20, 2024 Team Status: Inactive Member Role Status Dates Dr. Nadir Grady MD Primary Care Provider Active Start: October 23, 2024 End: October 23, 2024 Dr. Hany Paz MD Attending Provider Active Start: October 23, 2024 End: October 23, 2024 Dr. Hany Paz MD Referring Provider Active Start: October 23, 2024 End: October 23, 2024 Team Status: Inactive Member Role Status Dates Dr. Nadir Grady MD Primary Care Provider Active Start: November 09, 2024 End: November 09, 2024 Molly Houser BRIQUETTE MAKER, BRIQUETTE MAKER-C Attending Provider Active Start: November 09, 2024 End: November 09, 2024 Mollymarline Gomezne Referring Provider Active Start: November 09, 2024 End: November 09, 2024 Team Status: Inactive Member Role Status Dates Dr. Nadir Grady MD Primary Care Provider Active Start: December 08, 2024 End: December 08, 2024 Dr. Nadir Grady MD Referring Provider Active Start: December 08, 2024 End: December 08, 2024 Yolanda DENISE PA Attending Provider Active Start: December 08, 2024 End: December 08, 2024 Team Status: Inactive Member Role Status Dates Dr. Nadir Grady MD Primary Care Provider Active Start: December 08, 2024 End: December 08, 2024 Yolanda DENISE PA Attending Provider Active Start: December 08, 2024 End: December 08, 2024 Yolanda DENISE PA Referring Provider Active Start: December 08, 2024 End: December 08, 2024 Binder Selector Relationship Specialty Start Date End Date Nadir Grady MD [address] [place] [address] PCP - General Family Medicine 12/06/24 Karen Piper RPh [address] [place] [address] Pharmacist Pharmacy 03/15/21 Yolanda Dean PA-C [address] [place] [id number] Referring Pulmonary and Critical Care Medicine 02/07/22 Franny Catalan APRN.CERTIFIED ANESTHESIOLOGIST ASSISTANT [address] [place] [address] [id number] [facility] 08/07/24 Martha Boston PA-C [address] [place] [address] [phone] [facility] 08/07/24 Binder Selector Relationship Specialty Start Date End Date Nadir Grady MD [address] [place], [place] [id number] PCP - General Family Medicine 12/06/24 [facility] [address] [place], [place] 874481 Pharmacist Pharmacy 03/15/21 Yolanda Dean PA-C [address] [place] [address] [phone] Referring Pulmonary and Critical Care Medicine 02/07/22 Franny Catalan APRN.CERTIFIED ANESTHESIOLOGIST ASSISTANT [address] [place] [address] [phone] [facility] 08/07/24 Martha Boston PA-C [address] [place] [address] [id number] [facility] 08/07/24 Team Status: Inactive Member Role Status Dates Dr. Nadir Grady MD Primary Care Provider Active Start: December 23, 2024 End: December 23, 2024 Yolanda DENISE PA Attending Provider Active Start: December 23, 2024 End: December 23, 2024 Yolanda DENISE PA Referring Provider Active Start: December 23, 2024 End: December 23, 2024 Team Status: Active Member Role Status Dates Dr. Nadir Grady MD Primary Care Provider Active Start: December 23, 2024 Dr. Jered Egan MD Attending Provider Active S tart: December 23, 2024 Binder Selector Relationship Specialty Start Date End Date Nadir Grday MD [address] [place] [address] PCP - General Family Medicine 12/06/24 Karen Piper, [facility] [address] [place] [address] Pharmacist Pharmacy 03/15/21 Yolanda Dean PA-C [address] [place] [id number] Referring Pulmonary and Critical Care Medicine 02/07/22 Martha Boston PA-C [address] [place] [id number] [address] [facility] 08/07/24 Team Status: Active Member Role Status Dates Dr. Nadir Grady MD Primary Care Provider Active Start: December 23, 2024 Dr. Jered Egan MD Attending Provider Active S tart: December 23, 2024 Yolanda DENISE PA Referring Provider Active Start: December 23, 2024 Team Status: Inactive Member Role Status Dates Dr. Nadir Grady MD Primary Care Provider Active Start: February 22, 2025 End: February 22, 2025 Dr. Nadir Grady MD Referring Provider Active Start: February 22, 2025 End: February 22, 2025 Dr. Jd Kern MD Attending Provider Active S tart: February 22, 2025 End: February 22, 2025 Binder Selector Relationship Specialty Start Date End Date Nadir Grady MD [address] [place] [address] PCP - General Family Medicine 12/06/24 Karen Piper, [facility] [address] [place] [address] Pharmacist Pharmacy 03/15/21 Yolanda Dean PA-C [address] [place] [id number] Referring Pulmonary and Critical Care Medicine 02/07/22 Franny Catalan APRN.CERTIFIED ANESTHESIOLOGIST ASSISTANT [address] [place] [address] Road [facility] 01/31/25 Martha Boston PA-C [address] [place] [address] Road [facility] 01/31/25 Binder Selector Relationship Specialty Start Date End Date Nadir Grady MD [address] [place] [address] PCP - General Family Medicine 12/06/24 [facility] [address] [place] [address] Pharmacist Pharmacy 03/15/21 Yolanda Dean PA-C [address] [place] [address] Referring Pulmonary and Critical Care Medicine 02/07/22 Franny Catalan APRN.CERTIFIED ANESTHESIOLOGIST ASSISTANT [address] [place] [address] Road [facility] 01/31/25 Martha Boston PA-C [address] [place] [address] Road [facility] 01/31/25 Binder Selector Relationship Specialty Start Date End Date Nadir Grady MD [address] [place] [address] PCP - General Family Medicine 12/06/24 [facility] [address] [place] [address] Pharmacist Pharmacy 03/15/21 Yolanda Dean PA-C [address] [place], [place] [phone] Referring Pulmonary and Critical Care Medicine 02/07/22 Franny Catalan APRN.CNP [address] [place], [place] 1703[address] Road [facility] 01/31/25 Martha Boston PA-C [address] [facility], [place] [id number] Road [facility] Family [facility] 01/31/25 Team Status: Active Member Role/Relationship Status Dates Dr. Nadir Grady MD Primary Care Provider Active Team Status: Inactive Member Role/Relationship Status Dates Dr. Nadir Grady MD Primary Care Provider Active Start: November 09, 2024 End: November 09, 2024 Molly Houser BRIQUETTE MAKER, BRIQUETTE MAKER-C Attending Provider Active Start: November 09, 2024 End: November 09, 2024 Molly Houser Referring Provider Active Start: November 09, 2024 End: November 09, 2024 Team Status: Inactive Member Role/Relationship Status Dates Dr. Nadir Grady MD Primary Care Provider Active Start: December 08, 2024 End: December 08, 2024 Dr. Nadir Grady MD Referring Provider Active Start: December 08, 2024 End: December 08, 2024 Yolanda DENISE PA Attending Provider Active Start: December 08, 2024 End: December 08, 2024 Team Status: Inactive Member Role/Relationship Status Dates Dr. Nadir Grady MD Primary Care Provider Active Start: December 08, 2024 End: December 08, 2024 Yolanda DENISE PA Attending Provider Active Start: December 08, 2024 End: December 08, 2024 Yolanda DENISE PA Referring Provider Active Start: December 08, 2024 End: December 08, 2024 Team Status: Inactive Member Role/Relationship Status Dates Dr. Nadir Grady MD Primary Care Provider Active Start: December 23, 2024 End: December 23, 2024 CAMELIA Aquino Attending Provider Active Start: December 23, 2024 End: December 23, 2024 CAMELIA Aquino Referring Provider Active Start: December 23, 2024 End: December 23, 2024 Team Status: Active Member Role/Relationship Status Dates Dr. Nadir Grady MD Primary Care Provider Active Start: December 23, 2024 Dr. Jered Egan MD Attending Provider Active S tart: December 23, 2024 CAMELIA Aquino Referring Provider Active Start: December 23, 2024 Team Status: Inactive Member Role/Relationship Status Dates Dr. Nadir Grady MD Primary Care Provider Active Start: February 22, 2025 End: February 22, 2025 Dr. Nadir Grady MD Referring Provider Active Start: February 22, 2025 End: February 22, 2025 Dr. Jd Kern MD Attending Provider Active S tart: February 22, 2025 End: February 22, 2025 Team Status: Inactive Member Role/Relationship Status Dates Dr. Nadir Grady MD Primary Care Provider Active Start: March 05, 2025 End: March 05, 2025 Dr. Pop Shah MD Emergency Provider Active Start: March 05, 2025 End: March 05, 2025 Goals (unrecognized section and content) Goals may be documented in a n alternate sectionGoals may be documented in an alternate sectionGoals may be documented in an alternate sectionGoals may be documented in an alternate sectionGoals may be documented in an alternate sectionGoals may be documented in an alternate sectionGoals may be documented in an alternate sectionGoals may be documented in an alternate sectionGoals may be documented in an alternate sectionGoals may be documented in an alternate sectionGoals may be documented in an alternate sectionGoals may be documented in an alternate sectionGoals may be documented in an alternate sectionGoals may be documented in an alternate sectionGoals may be documented in an alternate sectionGoals may be documented in an alternate section FOR RECORDS PERTAINING TO PATIENTS WHO ARE [...] BE BASED ON THE PRIMARY CLINICAL RECORDS. [facility] [employer] [facility]. provides no warranty or guarantee of the accuracy or completeness of information in this document.
== END | disposition home or self-care (01) ==
PROVIDERS: PCP Family Medicine; Referring Provider Physician Assistant Medical; Visit Provider Physician Assistant Medical
DX: R55 Syncope and collapse (principal); R42 Dizziness and giddiness; I65.23 Occlusion and stenosis of bilateral carotid arteries
CPT/HCPCS: 93225; 93226

== ENCOUNTER 2025-03-25 06:43 | Emergency (ER) | payer MEDICARE, SELFPAY ==
[2024-04-19 08:46] VITALS: BMI 26.5
[2025-03-25 06:46] VITALS: BP 178/85; PULSE 100; RESP 16; TEMP 36.7; O2SAT 96; BMI 25.4
--- NOTE | 2025-03-25 06:56 | EKG12_ITS ---
Test Reason : CP Blood Pressure : */* mmHG Vent. Rate : 102 BPM Atrial Rate : 102 BPM P-R Int : 162 ms QRS Dur : 84 ms QT Int : 356 ms P-R-T Axes : 60 27 29 degrees QTcB Int : 463 ms Sinus tachycardia Otherwise normal ECG Confirmed by SHAHID POTTER, HUSSAIN ([id number]), publications editor KAMI QUINTANA ([id number]) on 03/28/2025 8:28:37 AM Referred By: ROSEANN Confirmed By: HUSSAIN KEY MD
[2025-03-25 07:04] VITALS: O2SAT 94
--- NOTE | 2025-03-25 07:16 | EX.ED.DYSGE1 ---
HPI History of Present Illness Chief Complaint: Chest Pain Narrative Narrative: Patient is a 70-year-old male with past medical history of CAD with 12 stents, CVA, hyperlipidemia, hypertension, diabetes insipidus, type 2 diabetes, BPH who presented to the emergency department the chief complaint chest pain. Patient states that chest pain started around 4 AM this morning while getting ready to come up to the hospital for a CAT scan of his neck. He states that they are looking for clots in his neck. He states that he does not have a history of blood clots and denies any blood thinning medications. He states that while getting the CAT scan he developed chest pain he states that he took 1 nitro really did not help his pain took a second and he states that it slightly helped his chest pain. He states he took 4 baby aspirin given his known history of severe coronary artery disease. He states that there has not been discussion about open heart surgery. Patient denies recent travels. [facility] Medical History Essential (primary) hypertension Hyperlipidemia Stroke/cerebrovascular accident Hypertension History of CAD (coronary artery disease) Hx of diabetes insipidus Tremor of both hands COVID-19 (06/2021) Bilateral carotid artery stenosis Syncope (10/2021) Atherosclerotic heart disease of [place] coronary artery without angina pectoris (10/10/23) Type 2 diabetes mellitus Sciatica DDD (degenerative disc disease) Elevated LFTs BPH (benign prostatic hyperplasia) Home Medications ?Medication ?Instructions ?Recorded ?Last Taken ?Type aspirin 81 mg tablet,delayed 81 mg PO DAILY@0800 heart [facility] 09/13/13 02/11/22 History release omega 7-lnq-nqh-fish oil 1,000 mg 1,000 mg PO QDAY supplement 01/06/18 12/29/21 History (120 mg-180 mg) capsule (Fish Oil) ferrous sulfate 325 mg (65 mg 325 mg PO BID supplement 06/28/22 Unknown History iron) tablet zinc acetate 50 mg (zinc) capsule 50 mg PO DAILY supplement 10/30/23 Unknown History (Galzin) nitroglycerin 0.4 mg sublingual 0.4 mg sublingual Q5M PRN chest 12/04/23 Unknown Rx tablet pain #30 tabs omeprazole 40 mg capsule,delayed 40 mg PO DAILY #90 caps 04/19/24 Unknown Rx release atorvastatin 80 mg tablet 80 mg PO DAILY for cholesterol #90 07/26/24 Unknown Rx TABLETS empagliflozin 10 mg tablet 10 mg PO QAM 07/28/24 Unknown History (Jardiance) ticagrelor 90 mg tablet (Brilinta) 90 mg PO BID anti platelet #60 tabs 11/15/24 Unknown Rx metformin 500 mg tablet 500 mg PO BID 12/08/24 Unknown History ranolazine 1,000 mg 1,000 mg PO BID heart #60 tabs 12/22/24 Unknown Rx tablet,extended release,12 hr Super Beets PO 02/22/25 Unknown History clopidogrel 75 mg tablet 75 mg PO QDAY 02/22/25 Unknown History amlodipine 5 mg tablet 5 mg PO QDAY #90 tabs 03/09/25 Unknown Rx prednisone 50 mg tablet 50 mg PO .COMPLEX #3 tabs 03/24/25 Unknown Rx Allergy/AdvReac Type Severity Reaction Status Date / Time fludrocortisone (From Allergy Severe ANGIOEDEMA Verified 03/25/25 06:46 Florinef) isosorbide AdvReac Severe Near Verified 03/25/25 06:46 syncope, low bp, headaches losartan AdvReac Severe Angioedema Verified 03/25/25 06:46 iodine AdvReac unknown Verified 03/25/25 06:46 perfume AdvReac Other Verified 03/25/25 06:46 Family History Sister CAD (coronary artery disease) CVA (cerebral vascular accident) Diabetes Myocardial infarction Hx of CABG Mother Cancer Lung CA Surgical History History of loop recorder (12/13/21) History of cataract surgery History of left heart catheterization (10/10/23) History of hand surgery History of coronary artery stent placement (08/16/24) Hx of appendectomy Social History Smoking Status: Never smoker alcohol intake: never substance use type: does not use caffeine: No what type of physical activity do you participate in: none seatbelt use: always do you feel safe at home: Yes ROS ROS ED ROS Narrative Constitutional: Denies any fevers, chills, headaches Eyes: Denies change in vision double vision Cardiovascular: Complaint chest pain as noted above denies palpitations Respiratory: Denies coughing wheezing shortness of breath Abdomen: Denies nausea vomit diarrhea : Denies urinary symptoms Neurological: Denies any numbness, weakness, tingling Musculoskeletal: Denies back pain Skin: Denies any rashes or lesions EXAM Physical Exam Narrative Exam Narrative: General: Patient was lying in bed rest comfortably did not appear to be in acute distress Head: Atraumatic, normocephalic Eyes: PERRL bilaterally, EOMI blood, no conjunctival injection noted Neck: Soft, supple, trachea midline Cardiovascular: Regular rate and rhythm no murmurs gallops rubs noted Respiratory: Clear to auscultation bilaterally Abdomen: Soft, nondistended, nontender to palpation Extremities: Radial pulses +2/4 in the bilateral extremities, +5/5 strength noted in the bilateral upper and lower extremities, no pedal edema noted exam Neurological: Patient following commands knew that he was at [facility] year is 2024 Skin: Warm, dry, intact no rashes or lesions noted Const Vital Signs: 03/25/25 06:46 03/25/25 07:04 03/25/25 08:07 Temperature 98.0 F Temperature Source Oral Pulse Rate 100 Pulse Rate [Lying] 88 Pulse Rate [Sitting (for 1 minute prior to obtaining)] 89 Pulse Rate [Standing (for 1 minute prior to obtaining)] 93 Respiratory Rate 16 Blood Pressure 178/85 H Blood Pressure [Lying] 131/73 H Blood Pressure [Sitting (for 1 minute prior to obtaining)] 120/75 Blood Pressure [Standing (for 1 minute prior to obtaining)] 119/69 Blood Pressure Mean 116 Blood Pressure Mean [Lying] 92 Blood Pressure Mean [Sitting (for 1 minute prior to obtaining)] 90 Blood Pressure Mean [Standing (for 1 minute prior to obtaining)] 85 Pulse Ox 96 94 Oxygen Delivery Method Room Air Room Air 03/25/25 08:59 03/25/25 10:00 Temperature Temperature Source Pulse Rate 86 89 Pulse Rate [Lying] Pulse Rate [Sitting (for 1 minute prior to obtaining)] Pulse Rate [Standing (for 1 minute prior to obtaining)] Respiratory Rate 20 H 22 H Blood Pressure Blood Pressure [Lying] Blood Pressure [Sitting (for 1 minute prior to obtaining)] Blood Pressure [Standing (for 1 minute prior to obtaining)] Blood Pressure Mean Blood Pressure Mean [Lying] Blood Pressure Mean [Sitting (for 1 minute prior to obtaining)] Blood Pressure Mean [Standing (for 1 minute prior to obtaining)] Pulse Ox 96 96 Oxygen Delivery Method Room Air Room Air MDM MDM MDM Narrative Medical decision making narrative: Patient is a 70-year-old male who presented to the emerged part with chief complaint chest pain that started around 4 AM this morning while he was getting ready for his CT scan of his neck he states that the pain did worsen while here in the hospital prompting him to take 4 baby aspirin and 2 nitroglycerin. Once again he states that the nitro did not improve his pain significantly. On the differential diagnosis includes but not limited to ACS, pneumonia, pneumothorax, stable angina. Once workup is obtained reviewed he will be reevaluated. I reviewed the patient's manager ambulatory note from his last visit in January and he had extensive coronary artery disease which is known and in the noted states that they will reevaluate his anatomy. Patient CBC was reviewed showed no evidence leukocytosis white blood count of 9.9, hemoglobin is 12.7, plate count 189. Patient's sodium was 132, potassium normal 4.6, creatinine was 0.85. Patient's troponin was 10 with a delta troponin of 12. Patient's EKG reviewed showed sinus tachycardia with a rate of 102 beats per minutes. Patient chest x-ray reviewed by myself by radiology showed no focal consolidations. Did discuss case with his manager ambulatory who is on-call Dr. Nickerson who states that he is comfortable letting the patient go home and calling office for a appointment to follow-up. I discussed this plan with the patient he is agreeable all question concerns answered he was discharged home in stable condition. Lab Data Labs: Laboratory Results - last 24 hr 03/25/25 03/25/25 07:45 09:06 WBC 9.9 RBC 4.27 L Hgb 12.7 L Hct 37.8 L MCV 88.5 MCH 29.7 MCHC 33.6 RDW Std Deviation 39.7 RDW Coeff of Megan 12.3 Plt Count 189 MPV 9.7 Immature Gran % (Auto) 0.500 Neut % (Auto) 94.4 H Lymph % (Auto) 4.1 L [place] % (Auto) 0.8 Eos % (Auto) 0.0 Baso % (Auto) 0.2 Absolute Neuts (auto) 9.4 H Absolute Lymphs (auto) 0.41 L Nucleated RBC % 0 Sodium 132 L Potassium 4.6 Chloride 100 Carbon Dioxide 18.8 L Anion Gap 14 BUN 27 H Creatinine 0.85 Estim Creat Clear Calc 81.11 Est GFR (MDRD) Non-Af 92 BUN/Creatinine Ratio 32.2 H Glucose 406 H Calcium 8.7 Troponin T High Sens 10 D Troponin T Hi Sens 2 Hr 12 Radiography Diagnostic Testing: Clinical Impression(s) from Imaging Studies Chest X-Ray 03/25/25 07:18 IMPRESSION: No focal consolidations Reading Location: [facility] Discharge Plan Triage Chief Complaint: Chest Pain ED Provider: Seamus Connelly Dx/Rx/DC Orders Clinical Impression: Essential (primary) hypertension, Hyperlipidemia, Chest pain, CAD (coronary artery disease) Prescriptions: No Action omega 8-eoo-zwk-fish oil [Fish Oil] 1,000 mg (120 mg-180 mg) capsule 1,000 mg PO QDAY Patient Comments: 1200 mg PO QDAY Galzin 50 mg (zinc) capsule 50 mg PO DAILY omeprazole 40 mg capsule,delayed release(DR/EC) 40 mg PO DAILY Qty: 90 3RF clopidogrel 75 mg tablet 75 mg PO QDAY Patient Comments: [NO ORIGINAL SIG] Super Beets PO Jardiance 10 mg tablet 10 mg PO QAM metformin 500 mg tablet 500 mg PO BID Rx Instructions: 2 tabs bid aspirin 81 MG tablet 81 mg PO DAILY@0800 nitroglycerin 0.4 mg tablet, sublingual 0.4 mg sublingual Q5M PRN (Reason: chest pain) Qty: 30 0RF Rx Instructions: do not exceed 3 doses per episode ferrous sulfate 325 mg (65 mg iron) tablet 325 mg PO BID atorvastatin 80 mg tablet 80 mg PO DAILY Qty: 90 3RF Brilinta 90 mg tablet 90 mg PO BID Qty: 60 11RF ranolazine 1,000 mg tablet extended release 12 hr 1,000 mg PO BID Qty: 60 11RF amlodipine 5 mg tablet 5 mg PO QDAY Qty: 90 3RF prednisone 50 mg tablet 50 mg PO .COMPLEX Qty: 3 0RF Rx Instructions: 50 mg orally; Take one tablet at 1730, one at midnight and one at 0530. Primary Care Provider: Nadir Abdalla Referrals: Nadir Abdalla MD [Primary Care Provider] - Activity Restrictions/Additional Instructions: Call your manager ambulatory office and follow-up with them in the outpatient setting. Your blood work today and your chest x-ray did not show any acute findings. Return with worsening symptoms or any other concerns. Print Language: Serbian Disposition Disposition: Home, Self Care
--- NOTE | 2025-03-25 07:18 | RAD_ITS ---
PROCEDURE: CHEST PA AND LATERAL 03/25/2025 REASON FOR EXAM: CHEST PAIN TECHNIQUE: CHEST PA AND LATERAL COMPARISON: 03/05/25 FINDINGS: No focal consolidation. No pleural effusion or pneumothorax. Cardiac silhouette is within normal limits. No acute fracture RAD/Chest PA and Lateral IMPRESSION: No focal consolidations Reading Location: [facility]
--- OUTSIDE RECORDS SUMMARY | 2025-03-25 07:39 | XMS RPT_ITS ---
[address] [place], [address] METHADONE Negative Normal < 300 ng/mL [facility] Comment on above: Order Comment: RUN L OWEST TEST UNK Performed By: #### L 3410.9999, L505.5000 #### [facility] [address] [place], [address] OPIATES Negative Normal < 300 ng/mL [facility] Comment on above: Order Comment: RUN L OWEST TEST UNK Performed By: #### L 3410.9999, L505.5000 #### [facility] [address] [place], [address] PCP Negative Normal < 25 ng/mL [facility] Comment on above: Order Comment: RUN L OWEST TEST UNK Performed By: #### L 3410.9999, L505.5000 #### [facility] [address] [place], [address] THC Negative Normal < 50 ng/mL [facility] Comment on above: Order Comment: RUN L OWEST TEST UNK Performed By: #### L 3410.9999, L505.5000 #### [facility] [address] [place], [address] VISTA UDS PH 7 Normal [facility] Comment on above: Order Comment: RUN L OWEST TEST UNK Performed By: #### L 3410.9999, L505.5000 #### [facility] [address] [place], [address] Urine amphetamine measuremen tOrdered By: Hany Paz on 09-20-2024 Amphetamines Ql (U) Negative <1000 ng/mL [facility] Urine barbiturates measureme ntOrdered By: Hany Paz on 09-20-2024 Urine Barbiturates Screen Negative < 200 ng/mL [facility] Urine benzodiazepine levelOr dered By: Hany Paz on 09-20-2024 Benzodiazepines Ql (U) Negative < 200 ng/mL [facility] Urine cocaine levelOrdered B y: Hany Praelsa on 09-20-2024 Cocaine Ql (U) Negative < 300 ng/mL [facility] Urine cwkqe-3-asmwbtjvoxjuwb abinol (THC) measurementOrdered By: Hany Paz on 09-20-2024 Cannabinoids Screen Ql (U) Negative < 50 ng/m L [facility] Urine methylenedioxymethamph etamine (MDMA) measurementOrdered By: Hany Paz on 09-20-2024 MDMA (Ecstasy) Screen Negative < 500 ng/mL [facility] Urine phencyclidine (PCP) de tectionOrdered By: Hany Paz on 09-20-2024 Phencyclidine Ql (U) Negative < 25 ng/mL [facility] Cardiology Visit Reporton Cardiology Visit Report [facility] [address] [place] [address] OFFICE VISIT Date of Service: 09/08/24 MR#: [id number] Acct: [id number] Name: MICHAEL BATES Jr. Rep #: [id number] : 1955 Provider: CAMELIA Hurd Age/Sex: 69/M Location: [facility] Status: Signed HPI HPI History of Present [...] negative for ischemia. He was admitted to [facility] on October 09, 2023 with chest discomfort. [...] Oximetry (%) 94 Intake Visit Reasons: S/P [facility] 08/16 Cath Sidehand Required: No Is patient in pain?: No Allergies fludrocortisone (From Florinef) Allergy (Severe, Verified 09/08/24 12:53) ANGIOEDEMA losartan Adverse Reaction (Severe, Verified 09/08/24 12:53) Angioedema iodine Adverse Reaction (Verified 09/08/24 12:53) unknown perfume Adverse Reaction (Verified 09/08/24 12:53) Other Medications ???Medication ???Instructions ???Recorded ???Confirmed ???Type aspirin 81 mg tablet,delayed 81 mg PO DAILY@0800 heart health 09/13/13 09/08/24 History release omega 8-xwx-fun-fish oil 1,000 mg 1,000 mg PO QDAY [...] tabs 10/30/23 (more content not included)... Normal [facility] CNOVon 09-06-2024 CNOV Office Visit (FAMPWS ) MICHAEL BATES ([id number]) 1955 M Date Time Provider Department 09/06/24 2:40 PM NADIR GRADY During your visit today, we [...] Neurologia. He ws seeing pain management at [facility] and had been receiving neck injections and [...] Date 2D ECHO (EXEP) 01/16/2017 EF=60%, 1+ CA and TI (more content not included)... Normal [facility] CNPNon 09-06-2024 CNPN Telephone (FAMPWS) MICHAEL BATES ([id number]) 1955 M Date Time Provider Department 09/06/24 [...] tablet by mouth once daily. Per Cardio: [facility] - empagliflozin (JARDIANCE) 10 [...] 1 tablet by mouth once daily. Per [facility] - atorvastatin (LIPITOR) 80 mg [...] by mouth two times a day. Per [facility] - docosahexaenoic acid/epa (FISH OIL [...] strain [S13.9XXA] 07/30/2010 08/30/2010 Other physical therapy [[id number]] 08/16/2010 08/30/2010 Essential hypertension, benign [I10] 01/17/2012 [...] chronic d (more content not included)... Normal [facility] XR CHEST 2V FRONTAL/LATon XR CHEST [...] tissues: Unremarkable. IMPRESSION: No acute radiographic abnormality. Machine Filler Shredder: Emerging TigersB Transcribe Date/Time: Sep 06 2024 4:57P Dictated by : LIZA ARDON MD This examination was interpreted and the report reviewed and electronically signed by: LIZA ARDON MD on Sep 06 2024 4:59PM EST [id number] Normal [facility] XR Chest PA and Lateralon IMPRESSION: No acute radiographic abnormality. Machine Filler Shredder: PSCB Transcribe Date/Time: Sep 06 2024 4:57P Dictated by : LIZA ARDON MD This examination was interpreted and the report reviewed and electronically signed by: LIZA ARDON MD on Sep 06 2024 4:59PM [facility] DIVISION OF RADIOLOGY * * *Final Report* [...] soft tissues: Unremarkable. DIVISION OF RADIOLOGY Provider, [facility] - 09/06/2024 * * *Final Report* [...] Unremarkable. IMPRESSION IMPRESSION: No acute radiographic abnormality. Machine Filler Shredder: FAWN Transcribe Date/Time: Sep 06 2024 4:57P Dictated by : LIZA ARDON MD This examination was interpreted and the report reviewed and electronically signed by: LIZA ARDON MD on Sep 06 2024 4:59PM EST [facility] Radiology Study observation (narrative) [facility] XR Chest PA and LateralOrder ed By: Ccf Provider on 09-06-2024 [facility] Ova and Parasites 8623on OP OVA AND PARASITES EXAM, ROUTINE These results were obtained using wet preparation(s) and trichrome stained smear. This test does not include testing for Crytosporidium parvum, Cyclospora, or Microsporidia. One negative specimen does not rule out the possibility of a parasitic infection. TESTING PERFORMED AT [facility]. ORIGINAL REPORT ON FILE IN LAB CONTAINS ADDITIONAL TEST SITE INFORMATION. Ova/Parasite Exam NO OVA, CYSTS, OR PARASITES FOUND. Normal [facility] Comment on above: Performed By: #### L 3410.9999, L505.5000 #### [facility] [address] [facility], [address] 12 Lead EKGon 08-27-2024 12 Lead EKG [facility] Cardiovascular Services [address] [place] [address] 12 Lead EKG 08/27/24 0949 MR#: [id number] Acct: [id number] Name: MICHAEL BATES Jr. Rep #: [id number] : 1955 69 From: Jd Kern MD [...] ECG Confirmed by JD KERN MD ([id number]), commissioning editor KAMI QUINTANA ([id number]) on 08/30/2024 6:42:13 AM Referred By: ES Confirmed By: JD KENR MD 08/30/24 0642 Date Jd Kern MD CC: Dr. Juan Luis Rubio DO; Dr. Nadir Grady MD Signed Normal [facility] Abdomen/Pelvis without Conto n 08-27-2024 Abdomen/Pelvis without Cont [facility] Imaging Services [address] [place] [address] [id number] Abdomen/Pelvis without Cont MR#: [id number] Acct: [id number] Name: MICHAEL BATES Jr. Rep #: [id number] : 1955 M 69 From: Pop Nuno MD PCP: Dr. Nadir Grady MD Status: REG ER Study: Abdomen/Pelvis without Cont Date of Exam: 08/02 03/24 Exam# [id number] Ordering Dr: Juan Luis Rubio DO [id number] STUDY: CT ABDOMEN AND PELVIS WITHOUT CONTRAST [...] Signed: Pop Nuno MD at 12:00 EST Reading Location ID and State: [facility] / [place] , Service support , CC: Dr. Juan Luis Rubio DO; Dr. Nadir Grady MD Machine Filler Shredder: Signed Normal [facility] Absolute neutrophil countOrd ered By: ED PROVIDER on 08-27-2024 Neutrophils (Bld) [#/Vol] 13.7 10*3/uL High 2.0-7.7 [facility] Basic Metabolic Profile (BMP )on 08-27-2024 BUN/CRE 22.4 RATIO High 10-20 [facility] Comment on above: Order Comment: 87795 3 URINE TOX Performed By: #### L 3410.9999, L505.5000 #### [facility] [address] [place], [address] CA,Total 10.0 mg/dL Normal 8.5-10.1 [facility] Comment on above: Order Comment: 33132 3 URINE TOX Performed By: #### L 3410.9999, L505.5000 #### [facility] [address] [place], [address] Chloride [Moles/Vol] 101 mmol/L Normal 98-107 [facility] Comment on above: Order Comment: 81664 3 URINE TOX Performed By: #### L 3410.9999, L505.5000 #### [facility] [address] [place], [address] CO2 [Moles/Vol] 21.0 mmol/L Normal 21.0-32.0 [facility] Comment on above: Order Comment: 61747 3 URINE TOX Performed By: #### L 3410.9999, L505.5000 #### [facility] [address] [place], [address] Creatinine [Mass/Vol] 1.34 mg/dL High 0.70-1.30 [facility] Comment on above: Order Comment: 37442 3 URINE TOX Result Comment: The validity of the calculated GFR GFRAA in patients over 70 years has not been determined. Clinical correlation is essential. Performed By: #### L 3410.9999, L505.5000 #### [facility] [address] [place], [address] ECRCL 52.21 ml/min Normal [facility] Comment on above: Order Comment: 48241 3 URINE TOX Performed By: #### L 3410.9999, L505.5000 #### [facility] [address] [place], [address] EST GFR - AA 68 mL/min Normal >60 [facility] Comment on above: Order Comment: 98264 3 URINE TOX Result Comment: Afri can Romanian GFR Calc Performed By: #### L 3410.9999, L505.5000 #### [facility] [address] [place], [address] GAP 11 Normal 5-15 [facility] Comment on above: Order Comment: 77290 3 URINE TOX Performed By: #### L 3410.9999, L505.5000 #### [facility] [address] [place], [address] GFR/1.73 sq M.predicted among non-blacks MDRD (S/P/Bld) [Vol rate/Area] 56 mL/min/{1.73_m2} Low >60 [facility] Comment on above: Order Comment: 00422 3 URINE TOX Result Comment: Non- GFR Calc Performed By: #### L 3410.9999, L505.5000 #### [facility] [address] [place], [address] Glucose [Mass/Vol] 234 mg/dL High 74-106 [facility] Comment on above: Order Comment: 19618 3 URINE TOX Result Comment: Gluc ose result greater than or equal to 200 mg/dL suggests DIABETES MELLITUS per A.D.A. criteria. Performed By: #### L 3410.9999, L505.5000 #### [facility] [address] [place], [address] Potassium [Moles/Vol] 4.2 mmol/L Normal 3.5-5.1 [facility] Comment on above: Order Comment: 37332 3 URINE TOX Performed By: #### L 3410.9999, L505.5000 #### [facility] [address] [place], [address] Sodium [Moles/Vol] 133 mmol/L Low 136-145 [facility] Comment on above: Order Comment: 08377 3 URINE TOX Performed By: #### L 3410.9999, L505.5000 #### [facility] [address] [place], [address] Urea nitrogen [Mass/Vol] 30 mg/dL High 7-18 [facility] Comment on above: Order Comment: 25481 3 URINE TOX Performed By: #### L 3410.9999, L505.5000 #### [facility] [address] [place], [address] Basophil percentageOrdered B y: ED PROVIDER on 08-27-2024 Basophils/100 WBC (Bld) 0.5 % 0-1 [facility] Bilirubin Test strip Ql (U)O rdered By: Juan Luis Rubio on 08-27-2024 Bilirubin Ql (U) Negative Negative [facility] Bilirubin directOrdered By: Juan Luis Rubio on 08-27-2024 Bilirubin.direct [Mass/Vol] 0.15 mg/dL 0.00-0.3 0 [facility] Bilirubin, totalOrdered By: Juan Luis Rubio on 08-27-2024 Bilirubin [Mass/Vol] 0.60 mg/dL 0.20-1.00 [facility] Comment on above: For patients on eltr ombopag therapy, use of Dimension Shirley TBIL is not recommended. Blood urea nitrogen (BUN)/cr eatinine ratioOrdered By: Juan Luis Rubio on 08-27-2024 Urea nitrogen/Creatinine [Mass ratio] 22.4 mg/mg High 10-20 [facility] C. difficile DNA RIVER+probe Q l (Unsp spec)Ordered By: Juan Luis Rubio on 08-27-2024 Clostridioides difficile (PCR) [facility] CBC W/Diff, Automatedon 08-02 Absolute Lymph 1.06 X10 3/uL Normal 0.83-4.51 [facility] Comment on above: Performed By: #### L 3410.9999, L505.5000 #### [facility] [address] [place], [address] Absolute Neut 13.7 X10 3/uL High 2.0-7.7 [facility] Comment on above: Performed By: #### L 3410.9999, L505.5000 #### [facility] [address] [place], [address] Basophils/100 WBC (Bld) 0.5 % Normal 0-1 [facility] Comment on above: Performed By: #### L 3410.9999, L505.5000 #### [facility] [address] [place], [address] Eosinophils/100 WBC (Bld) 1.3 % Normal 0-5 [facility] Comment on above: Performed By: #### L 3410.9999, L505.5000 #### [facility] [address] [place], [address] Erythrocyte distribution width (RBC) [Ratio] 12.9 % Normal 11.6-14.6 [facility] Comment on above: Performed By: #### L 3410.9999, L505.5000 #### [facility] [address] [place], [address] Hematocrit (Bld) [Volume fraction] 44.8 % Normal 40-54 [facility] Comment on above: Performed By: #### L 3410.9999, L505.5000 #### [facility] [address] [place], [address] Hemoglobin (Bld) [Mass/Vol] 14.7 g/dL Normal 13.0-16. 5 [facility] Comment on above: Performed By: #### L 3410.9999, L505.5000 #### [facility] [address] [place], [address] IG% 0.500 Normal 0.0-0.9 [facility] Comment on above: Result Comment: IG% - Immature Granulocytes (promyelocytes, myelocytes and metamyelocytes) > 1% indicates that a LEFT SHIFT is Present. Performed By: #### L 3410.9999, L505.5000 #### [facility] [address] [place], [address] Lymphocytes/100 WBC (Bld) 6.4 % Low 19-41 [facility] Comment on above: Performed By: #### L 3410.9999, L505.5000 #### [facility] [address], [address] MCH (RBC) [Entitic mass] 28.7 pg Normal 27.0-32.0 [facility] Comment on above: Performed By: #### L 3410.9999, L505.5000 #### [facility] [address], [address] MCHC (RBC) [Mass/Vol] 32.8 g/dL Normal 32-36 [facility] Comment on above: Performed By: #### L 3410.9999, L505.5000 #### [facility] [address] [place], [address] MCV (RBC) [Entitic vol] 87.3 fL Normal 80-94 [facility] Comment on above: Performed By: #### L 3410.9999, L505.5000 #### [facility] [address] [place], [address] Monocytes/100 WBC (Bld) 8.0 % Normal 0-10 [facility] Comment on above: Performed By: #### L 3410.9999, L505.5000 #### [facility] [address] [place], [address] Neutrophils/100 WBC (Bld) 83.3 % High 47-70 [facility] Comment on above: Performed By: #### L 3410.9999, L505.5000 #### [facility] [address] [place], [address] Nucleated RBC (Bld) [#/Vol] 0 10*3/uL Normal 0-5 [facility] Comment on above: Performed By: #### L 3410.9999, L505.5000 #### [facility] [address] [place], [address] Platelet mean volume (Bld) [Entitic vol] 9.8 fL Normal 6.2-12.0 [facility] Comment on above: Performed By: #### L 3410.9999, L505.5000 #### [facility] [address] [place], [address] Platelets (Bld) [#/Vol] 277 10*3/uL Normal 150-450 [facility] Comment on above: Performed By: #### L 3410.9999, L505.5000 #### [facility] [address] [place], [address] RBC (Bld) [#/Vol] 5.13 10*6/uL Normal 4.6-6.2 [facility] Comment on above: Performed By: #### L 3410.9999, L505.5000 #### [facility] [address] [place], [address] RDW SD 41.0 fl Normal 35.1-43.9 [facility] Comment on above: Performed By: #### L 3410.9999, L505.5000 #### [facility] [address] [place], [address] WBC (Bld) [#/Vol] 16.4 10*3/uL High 4.4-11.0 [facility] Comment on above: Performed By: #### L 3410.9999, L505.5000 #### [facility] [address] [place], [address] CDIFF (PCR)on 08-27-2024 CDIFF Pending 027 027 NAP1-B1 Presumptive Negative *for epidemiolologic???use C. Diff PCR Negative- No toxigenic C. Diff Detected Normal [facility] Comment on above: Performed By: #### L 3410.9999, L505.5000 #### [facility] [address] [place], [address] Carbon dioxide measurementOr dered By: Juan Luis Rubio on 08-27-2024 CO2 [Moles/Vol] 21.0 mmol/L 21.0-32.0 [facility] Chest 1 View (Portable)on Chest 1 View (Portable) [facility] Imaging Services [address] [place] [address] Chest 1 View (Portable) MR#: [id number] Acct: [id number] Name: MICHAEL BATES Jr. Rep #: [id number] : 1955 M 69 From: Moises Escoto PCP: Dr. Nadir Grady MD Status: PRE ER Study: Chest 1 View (Portable) Date of Exam: 08/27/24 Exam# [id number] Ordering Dr: Juan Luis Rubio DO [id number] INDICATION: chest pain EXAMINATION/TECHNIQUE: X-RAY - XR [...] 10:35 EST , CC: Dr. Juan Luis Rubio DO; Dr. Nadir Grady MD Machine Filler Shredder: Signed Normal [facility] Chloride measurementOrdered By: Juan Luis Rubio on 08-27-2024 Chloride [Moles/Vol] 101 mmol/L 98-107 [facility] ENTERIC PATHOGEN PANEL STOOL on 08-27-2024 EP [...] sent to Infection Control Printer [id number] 08/27/24 1432 JENNIE. GI pathogens Pnl Stl RIVER+probe RESULTS CALLED TO ED, DANIEL Oviedo 08/27/24 1435 Karin Barber. REPORT READ BACK BY . CAMPYLOBACTER Not Detected Norovirus A Norovirus Detected A Rotavirus Not Detected Salmonella Not Detected Shiga Toxin Not Detected Shigella sp. Not Detected VIBRIO Not Detected Yersinia Not Detected Norovirus Normal [facility] Comment on above: Performed By: #### L 3410.9999, L505.5000 #### [facility] [address], [address] Emergency Department Summary on 08-27-2024 Emergency Department Summary [facility] Medical Records Department [address] [place] [address] Emergency Department Summary 08/27/24 MR#: [id number] Acct: [id number] Name: MICHAEL BATES Jr. Rep #: [id number] : 1955 69 From: Juan Luis Rubio [...] a year. He believes it is Brilinta. [facility] Medical History Essential (primary) hypertension Hyperlipidemia Stroke/cerebrovascular accident Hypertension History of CAD (coronary artery disease) Hx of diabetes insipidus Tremor of both hands COVID-19 (06/2021) Bilateral carotid artery stenosis Syncope (10/2021) Atherosclerotic heart disease of [place] coronary artery without angina pectoris (10/10/23) Type 2 diabetes mellitus Sciatica DDD (degenerative disc disease) Elevated LFTs BPH (benign prostatic hyperplasia) Home Medications ???Medication ???Instructions ???Recorded ???Last Taken ???Type aspirin 81 mg tablet,delayed 81 mg PO DAILY@0800 heart health 09/13/13 02/11/22 History release omega 4-ela-dsn-fish oil 1,000 mg 1,000 mg PO QDAY [...] urinary frequency (more content not included)... Normal [facility] Eosinophil percentageOrdered By: ED PROVIDER on 08-27-2024 Eosinophils/100 WBC (Bld) 1.3 % 0-5 [facility] Epithelial cells.squamous LM Ql (Urine sed)Ordered By: Juan Luis Rubio on 08-27-2024 Epithelial cells.squamous LM.HPF (Urine sed) [#/Area] 0 /[HPF] 0-5 [facility] Erythrocyte distribution wid th ratioOrdered By: ED PROVIDER on 08-27-2024 Erythrocyte distribution width (RBC) [Ratio] 12.9 % 11.6-14.6 [facility] Erythrocyte distribution wid th standard deviationOrdered By: ED PROVIDER on 08-27-2024 Erythrocyte distribution width (RBC) [Entitic vol] 41.0 fL 35.1-43.9 [facility] Estimated glomerular filtrat ion rate (GFR) AmericanOrdered By: Juan Luis Rubio on 08-27-2024 Estimated GFR (MDRD) Amer 68 mL/min >60 [facility] Comment on above: GFR Calc Estimation of creatinine екатерина aranceOrdered By: Juan Luis Rubio on 08-27-2024 Estimated Creatinine Clearance Calc 52.21 ml/min [facility] Glomerular filtration rate ( GFR) estimationOrdered By: Juan Luis Rubio on 08-27-2024 Estimated GFR (MDRD) Non-Af Amer 56 mL/min Low >60 [facility] Comment on above: Non- GFR Calc Glucose Ql (U)Ordered By: Nitesh Rubio on 08-27-2024 Glucose (U) [Mass/Vol] 1000 mg/dL High Normal [facility] Glucose measurementOrdered B y: Juan Luis Rubio on 08-27-2024 Glucose [Mass/Vol] 234 mg/dL High 74-106 [facility] Comment on above: Glucose result great er than or equal to 200 mg/dLsuggests DIABETES MELLITUS per A.D.A. criteria. Hematocrit Auto (Bld) [Volum e fraction]Ordered By: ED PROVIDER on 08-27-2024 Hematocrit (Bld) [Volume fraction] 44.8 % 40-54 [facility] Hemoglobin measurementOrdere d By: ED PROVIDER on 08-27-2024 Hemoglobin (Bld) [Mass/Vol] 14.7 g/dL 13.0-16. 5 [facility] Immature granulocytes/100 WB C Auto (Bld)Ordered By: ED PROVIDER on 08-27-2024 Immature granulocytes/100 WBC (Bld) 0.500 % 0.0-0.9 [facility] Comment on above: IG% - Immature Granu locytes (promyelocytes, myelocytes and metamyelocytes) > 1% indicates that a LEFT SHIFT is Present. Ketones Test strip Ql (U)Ord ered By: Juan Luis Rubio on 08-27-2024 Ketones Ql (U) 5 mg/dl High Negative [facility] L501.4020on 08-27-2024 TROPONIN-I HS 4 pg/mL Normal 3.0-78.0 [facility] Comment on above: Result Comment: Plea se Note: New Test Units and Gender Specific Reference Ranges. For more information see Policy Stat Procedure Shirley High Sensitivity Troponin (TNIH) and attachments. Performed By: #### L 3410.9999, L505.5000 #### [facility] [address] [place], [address] L501.5425on 08-27-2024 TROPONIN-I HS 4 pg/mL Normal 3.0-78.0 [facility] Comment on above: Order Comment: 04282 3 URINE TOX Result Comment: Plea se Note: New Test Units and Gender Specific Reference Ranges. For more information see Policy Stat Procedure Shirley High Sensitivity Troponin (TNIH) and attachments. Performed By: #### L 3410.9999, L505.5000 #### [facility] [address] [place], [address] Laboratory - Chemistry and C hemistry - challengeOrdered By: Juan Luis Rubio on 08-27-2024 AST [Catalytic activity/Vol] 25 U/L 15-37 [facility] Lactoferrin IA Ql (Stl)Order ed By: Juan Luis Rubio on 08-27-2024 Stool Lactoferrin [facility] Liver Profileon 08-27-2024 Albumin [Mass/Vol] 5.1 g/dL High 3.2-5.0 [facility] Comment on above: Performed By: #### L 500.3400 #### [facility] [address] [place], [address] ALK P 155 U/L High 45-117 [facility] Comment on above: Performed By: #### L 500.3400 #### [facility] [address] [place], [address] ALT [Catalytic activity/Vol] 36 U/L Normal 16-61 [facility] Comment on above: Performed By: #### L 500.3400 #### [facility] [address] [place], [address] AST [Catalytic activity/Vol] 25 U/L Normal 15-37 [facility] Comment on above: Performed By: #### L 500.3400 #### [facility] [address] [place], [address] Bilirubin [Mass/Vol] 0.60 mg/dL Normal 0.20-1.00 [facility] Comment on above: Result Comment: For patients on eltrombopag therapy, use of Dimension [place] TBIL is not recommended. Performed By: #### L 500.3400 #### [facility] [address] [place], [address] Bilirubin.direct [Mass/Vol] 0.15 mg/dL Normal 0.00-0.3 0 [facility] Comment on above: Performed By: #### L 500.3400 #### [facility] [address] [place], [address] Globulin (S) [Mass/Vol] 4.0 g/dL Normal 2.2-4.2 [facility] Comment on above: Performed By: #### L 500.3400 #### [facility] [address] [place], [address] T PROT 9.1 g/dL High 6.4-8.2 [facility] [facility] Comment on above: Performed By: #### L 500.3400 #### [facility] [address] [place], [address] Lymphocytes Auto (Unsp spec) [#/Vol]Ordered By: ED PROVIDER on 08-27-2024 Lymphocytes (Bld) [#/Vol] 1.06 10*3/uL 0.83-4.5 1 [facility] Lymphocytes/100 WBC Auto (Un sp spec)Ordered By: ED PROVIDER on 08-27-2024 Lymphocytes/100 WBC (Bld) 6.4 % Low 19-41 [facility] MCV (mean corpuscular volume ) determinationOrdered By: ED PROVIDER on 08-27-2024 MCV (RBC) [Entitic vol] 87.3 fL 80-94 [facility] Mean corpuscular hemoglobin (MCH) determinationOrdered By: ED PROVIDER on 08-27-2024 MCH (RBC) [Entitic mass] 28.7 pg 27.0-32.0 [facility] Mean corpuscular hemoglobin concentration (MCHC) determinationOrdered By: ED PROVIDER on 08-27-2024 MCHC (RBC) [Mass/Vol] 32.8 g/dL 32-36 [facility] Mean platelet volume determi nationOrdered By: ED PROVIDER on 08-27-2024 Platelet mean volume (Bld) [Entitic vol] 9.8 fL 6.2-12.0 [facility] Microscopic analysis of urin e for red blood cells (RBC)Ordered By: Juan Luis Rubio on 08-27-2024 Urine RBC 0 SEEN /hpf 0-5 [facility] Monocyte percentageOrdered B y: ED PROVIDER on 08-27-2024 Monocytes/100 WBC (Bld) 8.0 % 0-10 [facility] Mucus LM Ql (Urine sed)Order ed By: Juan Luis Rubio on 08-27-2024 Mucus Ql (Urine sed) 0 SEEN /hpf [facility] Neutrophil percentageOrdered By: ED PROVIDER on 08-27-2024 Neutrophils/100 WBC (Bld) 83.3 % High 47-70 [facility] Nitrite Test strip Ql (U)Ord ered By: Juan Luis Rubio on 08-27-2024 Nitrite Ql (U) Negative Negative [facility] Nucleated red blood cell per centageOrdered By: ED PROVIDER on 08-27-2024 Nucleated RBC/100 WBC (Bld) [Ratio] 0 % 0-5 [facility] Ova and parasitesOrdered By: Juan Luis Rubio on 08-27-2024 Ova and Parasites [facility] Platelet countOrdered By: ED PROVIDER on 08-27-2024 Platelets (Bld) [#/Vol] 277 10*3/uL 150-450 [facility] Potassium measurementOrdered By: Juan Luis Rubio on 08-27-2024 Potassium [Moles/Vol] 4.2 mmol/L 3.5-5.1 [facility] Protein Test strip Ql (U)Ord ered By: Juan Luis Rubio on 08-27-2024 Protein Ql (U) 30 mg/dl High Negative [facility] RBC Auto (Bld) [#/Vol]Ordere d By: ED PROVIDER on 08-27-2024 RBC (Bld) [#/Vol] 5.13 10*6/uL 4.6-6.2 [facility] Serum anion gap measurementO rdered By: Juan Luis Rubio on 08-27-2024 Anion gap [Moles/Vol] 11 mmol/L 5-15 [facility] Serum globulin measurementOr dered By: Juan Luis Rubio on 08-27-2024 Globulin (S) [Mass/Vol] 4.0 g/dL 2.2-4.2 [facility] Serum or plasma alanine toscano otransferase (ALT) measurementOrdered By: Juan Luis Rubio on 08-27-2024 ALT [Catalytic activity/Vol] 36 U/L 16-61 [facility] Serum or plasma albumin jaziel urement (mass/volume)Ordered By: Juan Luis Rubio on 08-27-2024 Albumin [Mass/Vol] 5.1 g/dL High 3.2-5.0 [facility] Serum or plasma alkaline geronimo sphatase measurementOrdered By: Juan Luis Rubio on 08-27-2024 ALP [Catalytic activity/Vol] 155 U/L High 45-117 [facility] Serum or plasma calcium jaziel urement (mass/volume)Ordered By: Juan Luis Rubio on 08-27-2024 Calcium [Mass/Vol] 10.0 mg/dL 8.5-10.1 [facility] Serum or plasma creatinine m easurement (mass/volume)Ordered By: Juan Luis Rubio on 08-27-2024 Creatinine [Mass/Vol] 1.34 mg/dL High 0.70-1.30 [facility] Comment on above: The validity of the calculated GFR & GFRAA in patients over 70 years has not been determined. Clinical correlation is essential. Serum or plasma urea nitroge n measurement (mass/volume)Ordered By: Juan Luis Rubio on 08-27-2024 Urea nitrogen [Mass/Vol] 30 mg/dL High 7-18 [facility] Sodium levelOrdered By: Tien Rubio on 08-27-2024 Sodium [Moles/Vol] 133 mmol/L Low 136-145 [facility] Stool Lactoferrin/WBCon 08-02 WBCST Normal Reference Ran ge = Negative Fecal WBC Lactoferrin A Positive: Fecal WBC Lactoferrin present A Normal [facility] Comment on above: Performed By: #### L 3410.9999, L505.5000 #### [facility] [address] [place], [place], [id number] Stool enteric pathogen panel by probe and target amplification methodOrdered By: Juan Luis Rubio on 08-27-2024 Enteric Bacteriology Norovirus Abnormal [facility] Total proteinOrdered By: Cesar Rubio on 08-27-2024 Protein [Mass/Vol] 9.1 g/dL High 6.4-8.2 [facility] Troponin IOrdered By: Juan Luis Rubio on 08-27-2024 Troponin I High Sensitivity 4 pg/mL 3.0-78.0 [facility] Comment on above: Please Note: [place] t Units and Gender Specific Reference Ranges. For more information see Policy Stat Procedure Shirley High Sensitivity Troponin (TNIH) and attachments. Urinalysis, Completeon 08-27 BACTERIA 0 SEEN Normal None Seen [facility] Comment on above: Order Comment: [id number] 3 URINE TOX Performed By: #### L 3410.9999, L505.5000 #### [facility] [address], [address] EPI,SQUAMOUS 0 SEEN Normal 0-5 [facility] Comment on above: Order Comment: [id number] 3 URINE TOX Performed By: #### L 3410.9999, L505.5000 #### [facility] [address] [place], [address] Mucus Ql (Urine sed) 0 SEEN Normal [facility] Comment on above: Order Comment: [id number] 3 URINE TOX Performed By: #### L 3410.9999, L505.5000 #### [facility] [address] [place], [address] RBC 0 SEEN Normal 0-5 [facility] Comment on above: Order Comment: [id number] 3 URINE TOX Performed By: #### L 3410.9999, L505.5000 #### [facility] [address] [place], [address] WBC 0 SEEN Normal 0-5 [facility] Comment on above: Order Comment: [id number] 3 URINE TOX Performed By: #### L 3410.9999, L505.5000 #### [facility] [address] [place], [address] Urine blood detectionOrdered By: Juan Luis Rubio on 08-27-2024 Urine Occult Blood Negative Negative [facility] Urine clarityOrdered By: Cesar Rubio on 08-27-2024 Clarity (U) Clear Clear [facility] Urine color determinationOrd ered By: Juan Luis Rubio on 08-27-2024 Color (U) Yellow Yellow [facility] Urine leukocyte esterase det ection by dipstickOrdered By: Juan Luis Rubio on 08-27-2024 Leukocyte esterase Test strip Ql (U) Negative Negative [facility] Urine pHOrdered By: Juan Luis chand on 08-27-2024 pH (U) 6.0 [pH] 5.0 - 8.0 [facility] Urine sediment bacteria coun t by microscopy (number/high power field)Ordered By: Jaun Luis Rubio on 08-27-2024 Bacteria LM.HPF (Urine sed) [#/Area] 0 /[HPF] None Seen [facility] Urine specific gravity measu rementOrdered By: Juan Luis Rubio on 08-27-2024 Specific gravity (U) [Rel density] 1.015 1.002-1.03 0 [facility] Urobilinogen Ql (U)Ordered B y: Juan Luis Rubio on 08-27-2024 Urine Urobilinogen Normal mg/dl Normal [facility] White blood cell (WBC) count Ordered By: ED PROVIDER on 08-27-2024 WBC (Bld) [#/Vol] 16.4 10*3/uL High 4.4-11.0 [facility] White blood cell countOrdere d By: Juan Luis Rubio on 08-27-2024 Urine WBC 0 SEEN /hpf 0-5 [facility] Cardiac Cath Diagnosticon Cardiac Cath Diagnostic [facility] Imaging Services [address] [place] [address] Cardiac Cath Diagnostic MR#: [id number] Acct: [id number] Name: MICHAEL BATES JrMukesh Rep #: [id number] : 1955 69 From: Jd Kern MD PCP: Dr. Nadir Grady MD Status:[facility] Patient Name: MICHAEL BATES Study Date: 08/16/2024 Performing: Jd Kern MD Ht: 70 inches 177.8 cm : 1955 Wt: 178.99 lbs 81.19 kg Age: 69 Gender: male BSA: 1.99 PROCEDURE(S) PERFORMED DC01-(29327)LHC/COR/LV CLINICAL PROFILE AND INDICATIONS Indications: Worsening Angina [...] multiple views using a 5 Fr. 4.0 [place] catheter. Right Coronary Artery selective angiography was then performed in multiple views using a 5 Fr. 4.0 [place] catheter. Left Ventriculography was performed in SUAREZ [...] 09:22:56 Jd Kern MD 08/16/24922 Date Jd Rogersignmarko Signature: Date (if indicated) CC: Dr. Jd Kern MD; Dr. Nadir Grady MD Date Dictated: 08/16/24826 Date Transcribed: 08/16/24922 Machine Filler Shredder: [place] Signed [facility] Cardiac Cath Interventionon 08-16-2024 Cardiac Cath Intervention [facility] Imaging Services [address] [place] [address] Cardiac Cath Intervention MR#: [id number] Acct: [id number] Name: MICHAEL BATES Rep #: [id number] : 1955 69 From: Jd Kern MD PCP: Dr. Nadir Grady MD Status:[facility] Patient Name: MICHAEL BATES Study Date: 08/16/2024 Performing: Blanka Cabrales MD Ht: 70 inches 177.8 cm : 1955 Wt: 178.99 lbs 81.19 kg Age: 69 Gender: male BSA: 1.99 PROCEDURE(S) PERFORMED IC12-(44347/C9600)RODDY W/WO PTCA, SINGLE CORONARY ARTERY CLINICAL PROFILE [...] multiple views using a 5 Fr. 4.0 [place] catheter. Right Coronary Artery selective angiography was then performed in multiple views using a 5 Fr. 4.0 [place] catheter. Left Ventriculography was performed in SUAREZ [...] 3 Lesion Devices: Zavaleta .014 190cm [employer] [place] Straight Cordis 6 Fr JR4 100cm Guide Catheter Medtronic SC EUPHORA RX 3.0x12 BALLOON [employer] cutting balloon 3.0x10 Medtronic 3.5 x 12 [...] Small Signature: Date (more content not included)... Normal [facility] 08-12-2024 [facility] Office Visit (UCWSTR ) ADIAMICHAEL BROCK ([id number]) 1955 M Date Time Provider Department 08/12/24 8:00 AM [facility] During your visit today, we recorded the following information about you: Temperature Pulse Respiration Blood pressure 97.2 degrees 70/minute 20/minute 118/74 Weight 82.2 kg Bridget Joseph APRN.CUSTOMER RELATIONS ASSISTANT 08/12/2024 8:15 AM Signed This note was created using Tapturiter. Subjective Michael Bates is a 69 year [...] and Plan ASSESSMENT/PLAN: 1. Adverse effect of vnmx-bvx-cazudrm medication, initial encounter - ICD9: E947.9, ICD10: T50.905A On physical exam I saw no obvious sign of swelling to the mouth, lips, or tongue. Patient did have a tiny sore near the base of the frenulum. I informed patient he should use jxdg-zkf-hucwuoj antihistamine such as Claritin, Benadryl, or Zyrtec. I informed him that if it anytime he felt as though his symptoms were not improving or he was having any trouble with swallowing or breathing he should go directly to the emergency department. He was instructed not to use the drops again. Bridget Joseph APRN.CUSTOMER RELATIONS ASSISTANT Allergies As of Date: 08/12/2024 Noted Allergy Reaction FLORINEF (FLUDROCORTISONE) 04/25/2022 18 - Angioedema LOSARTAN 10/24/2023 18 - Angioedema PERFUMES 01/20/2012 14 - Other: See Comments Comments: sneezing Date Reviewed: 08/12/2024 Reviewed by: Bridget Joseph APRN.[facility] - Fully Assessed Reason for Visit: Mouth Sores [839] Cmt: Sore in mouth on bottom front gum area x 1 day Primary Visit Diagnosis:Adverse effect of fvln-yvp-ubiuszc medication, initial encounter [T50.905A] Prescriptions as of 08/12/2024 - isosorbide mononitrate ER (IMDUR) 30 mg 24 hr tablet Take 1 tablet by mouth once daily. Per Cardio: [facility] - empagliflozin (JARDIANCE) 10 [...] 1 tablet by mouth once daily. Per [facility] - atorvastatin (LIPITOR) 80 mg tablet Take 1 tablet by mouth once daily. Managed by cardiology, Dr. Kern - omeprazole (PRILOSEC) 40 mg capsule Take 1 capsule by mouth once daily. Per [facility] - ranolazine ER (RANEXA) 1,000 mg tab ER 12 hr Take 1 tablet by mouth two times a day. Per [facility] - carvedilol (COREG) 3.125 mg tablet Take 1 tablet by mouth two times a day. Per [facility] - ticagrelor (BRILINTA) 90 mg tablet Take 1 tablet by mouth two times a day. Per [facility] - docosahexaenoic acid/epa (FISH OIL [...] Glucose Cont (more content not included)... Normal [facility] Jesse 08-10-2024 MIGELN Telephone ([facility]) MICHAEL BATES ([id number]) 1955 M Date Time Provider Department 08/10/24 MARTHA BOSTON During your visit today, we [...] Date Reviewed: 07/24/2024 Reviewed by: Bridget Joseph APRN.CUSTOMER RELATIONS ASSISTANT - Fully Assessed Reason for Visit: Results [95] Prescriptions as of 08/10/2024 - isosorbide mononitrate ER (IMDUR) 30 mg 24 hr tablet Take 1 tablet by mouth once daily. Per Cardio: [facility] - empagliflozin (JARDIANCE) 10 [...] by mouth two times a day. Per [facility] - docosahexaenoic acid/epa (FISH OIL [...] strain [S13.9XXA] 07/30/2010 08/30/2010 Other physical therapy [[id number]] 08/16/2010 08/30/2010 Essential hypertension, benign [I10] 01/17/2012 [...] 06/12/2018 Neurop (more content not included)... Normal [facility] ALKALINE PHOSPHATASE ISOENZY MES (P)on 08-09-2024 ALK PHOS BONE % 34.4 % Normal 10.7-68.3 [facility] Comment on above: Order Comment: Speci men Type: BLOOD SPECIMENOrdering Facility: [facility] Address: [address] [place] [address] Performed By: #### A LKISOP ####[facility] LABCLIA [id number] [facility] [id number] [address] [place] ALK PHOS LIVER % 48.3 % Normal 26.0-86.2 [facility] Comment on above: Order Comment: Speci men Type: BLOOD SPECIMENOrdering Facility: [facility] Address: [address] [place] [address] Performed By: #### A LKISOP ####[facility] LABCLIA [id number] [place] [address] [place] BONE FRACTION 47.8 U/L Normal 12.9-52.6 [facility] Comment on above: Order Comment: Speci men Type: BLOOD SPECIMENOrdering Facility: [facility] Address: [address] [place] [address] Performed By: #### A LKISOP ####[facility] LABCLIA [id number] [place] [address] [place] INTESTINE FRACTION 24.0 U/L High 0.0-16.3 [facility] Comment on above: Order Comment: Speci men Type: BLOOD SPECIMENOrdering Facility: [facility] Address: [address] [place] [address] Performed By: #### A LKISOP ####[facility] LABCLIA [id number] [place] [address] [place] LIVER FRACTION 67.1 U/L Normal 16.0-69.3 [facility] Comment on above: Order Comment: Speci men Type: BLOOD SPECIMENOrdering Facility: [facility] Address: [address] [place] [address] Performed By: #### A LKISOP ####[facility] LABCLIA [id number] [place] [address] [place] Neutrophils/100 WBC (Bld) 17.3 % Normal 0.0-24.2 [facility] Comment on above: Order Comment: Speci men Type: BLOOD SPECIMENOrdering Facility: [facility] Address: [address] [place] [address] Performed By: #### A LKISOP ####[facility] LABIA [id number] [place] [id number] [place] ALP SerPl-cCncon 08-09-2024 ALP [Catalytic activity/Vol] 139 U/L High 38-113 [facility] Comment on above: Order Comment: Speci men Type: BLOOD SPECIMENOrdering Facility: [facility] Address: [address] [place] [address] Performed By: #### 6 768-6, 2324-2 ####[facility] [id number] [address] [place] GGT SerPl-cCncon 08-09-2024 Gamma glutamyl transferase [Catalytic activity/Vol] 14 U/L Normal 10-70 [facility] Comment on above: Order Comment: Speci men Type: BLOOD SPECIMENOrdering Facility: [facility] Address: [address] [place] [address] Performed By: #### 6 768-6, 2324-2 ####[facility] [id number] [address] [place] CNPSania 08-04-20[facility] ([id number]) 1955 M Date Time Provider Department 08/04/24 [facility] During your visit today, we recorded [...] Date Reviewed: 07/24/2024 Reviewed by: Bridget Joseph APRN.CUSTOMER RELATIONS ASSISTANT - Fully Assessed Reason for Visit: Patient [...] strain [S13.9XXA] 07/30/2010 08/30/2010 Other physical therapy [[id number]] 08/16/2010 08/30/2010 Essential hypertension, benign [I10] 01/17/2012 [...] Medicare annua (more content not included)... Normal [facility] 12 Lead EKG performed by BMS on 07-28-2024 12 Lead EKG performed by B[facility] [address] [facility] [place] [address] 12 Lead EKG performed by [facility]MS 07/28/24 0853 MR#: [id number] Acct: [id number] Name: MICHAEL BATES JrMukesh Rep #: [id number] : 1955 69 From: Yolanda Ye Attending Dr: CAMELIA Julian Status: DEP AMB Ordering Dr: Yolanda Dean Date: 07/03 03/24 Location: [facility] Sex: M C Admitted: BMS/12 Lead EKG performed by [facility] ECG Report Interpretation ----Sinus Rhythm WITHIN NORMAL LIMITSElectronically signed on 07/28/2024 at 12:[address] Priscilla Hanleywood Software Version [id number] 11/27/24 1242 Date Yolanda DENISE CC: Dr. Nadir Grady MD Date Dictated: 07/28/24852 Date Transcribed: 07/28/24852 Machine Filler Shredder: MMM Signed Normal [facility] Absolute neutrophil countOrd ered By: Yolanda Dean on 07-28-2024 Neutrophils (Bld) [#/Vol] 3.7 10*3/uL 2.0-7.7 [facility] Basic Metabolic Profile (BMP )on 07-28-2024 BUN/CRE 16.5 RATIO Normal 10-20 [facility] Comment on above: Performed By: #### L 3410.9999, L505.5000 #### [facility] [address] [place], [address] CA,Total 9.5 mg/dL Normal 8.5-10.1 [facility] Comment on above: Performed By: #### L 3410.9999, L505.5000 #### [facility] [address] [place], [address] Chloride [Moles/Vol] 107 mmol/L Normal 98-107 [facility] Comment on above: Performed By: #### L 3410.9999, L505.5000 #### [facility] [address] [place], [address] CO2 [Moles/Vol] 24.0 mmol/L Normal 21.0-32.0 [facility] Comment on above: Performed By: #### L 3410.9999, L505.5000 #### [facility] [address] [place], [address] Creatinine [Mass/Vol] 1.03 mg/dL Normal 0.70-1.30 [facility] Comment on above: Result Comment: The validity of the calculated GFR GFRAA in patients over 70 years has not been determined. Clinical correlation is essential. Performed By: #### L 3410.9999, L505.5000 #### [facility] [address] [place], [address] EST GFR - AA 91 mL/min Normal >60 [facility] Comment on above: Result Comment: Afri can Romanian GFR Calc Performed By: #### L 3410.9999, L505.5000 #### [facility] [address] [place], [address] GAP 6 Normal 5-15 [facility] Comment on above: Performed By: #### L 3410.9999, L505.5000 #### [facility] [address] [place], [address] GFR/1.73 sq M.predicted among non-blacks MDRD (S/P/Bld) [Vol rate/Area] 76 mL/min/{1.73_m2} Normal >60 [facility] Comment on above: Result Comment: Non- GFR Calc Performed By: #### L 3410.9999, L505.5000 #### [facility] [address] [place], [address] Glucose [Mass/Vol] 190 mg/dL High 74-106 [facility] Comment on above: Result Comment: Fast ing Glucose result greater than or equal to 126 mg/dL suggests DIABETES MELLITUS per A.D.A. criteria. Performed By: #### L 3410.9999, L505.5000 #### [facility] [address] [place], [address] Potassium [Moles/Vol] 4.2 mmol/L Normal 3.5-5.1 [facility] Comment on above: Performed By: #### L 3410.9999, L505.5000 #### [facility] [address] [place], [address] Sodium [Moles/Vol] 137 mmol/L Normal 136-145 [facility] Comment on above: Performed By: #### L 3410.9999, L505.5000 #### [facility] [address] [place], [address] Urea nitrogen [Mass/Vol] 17 mg/dL Normal 7-18 [facility] Comment on above: Performed By: #### L 3410.9999, L505.5000 #### [facility] [address] [place], [address] Basophil percentageOrdered B y: Yolanda Dean on 07-28-2024 Basophils/100 WBC (Bld) 0.8 % 0-1 [facility] Blood urea nitrogen (BUN)/cr eatinine ratioOrdered By: Yolanda Dean on 07-28-2024 Urea nitrogen/Creatinine [Mass ratio] 16.5 mg/mg 10-20 [facility] CBC W/Diff, Automatedon 07-03 Absolute Lymph 1.17 X10 3/uL Normal 0.83-4.51 [facility] Comment on above: Performed By: #### L 100.0100, L500.2500, L300.3900 #### [facility] [address] [place], [address] Absolute Neut 3.7 X10 3/uL Normal 2.0-7.7 [facility] Comment on above: Performed By: #### L 100.0100, L500.2500, L300.3900 #### [facility] [address] [place], [address] Basophils/100 WBC (Bld) 0.8 % Normal 0-1 [facility] Comment on above: Performed By: #### L 100.0100, L500.2500, L300.3900 #### [facility] [address] [place], [address] Eosinophils/100 WBC (Bld) 5.9 % High 0-5 [facility] Comment on above: Performed By: #### L 100.0100, L500.2500, L300.3900 #### [facility] [address] [place], [address] Erythrocyte distribution width (RBC) [Ratio] 12.6 % Normal 11.6-14.6 [facility] Comment on above: Performed By: #### L 100.0100, L500.2500, L300.3900 #### [facility] [address] [place], [address] Hematocrit (Bld) [Volume fraction] 38.2 % Low 40-54 [facility] Comment on above: Performed By: #### L 100.0100, L500.2500, L300.3900 #### [facility] [address] [place], [address] Hemoglobin (Bld) [Mass/Vol] 13.1 g/dL Normal 13.0-16. 5 [facility] Comment on above: Performed By: #### L 100.0100, L500.2500, L300.3900 #### [facility] [address] [place], [address] IG% 0.700 Normal 0.0-0.9 [facility] Comment on above: Result Comment: IG% - Immature Granulocytes (promyelocytes, myelocytes and metamyelocytes) > 1% indicates that a LEFT SHIFT is Present. Performed By: #### L 100.0100, L500.2500, L300.3900 #### [facility] [address] [place], [address] Lymphocytes/100 WBC (Bld) 19.8 % Normal 19-41 [facility] Comment on above: Performed By: #### L 100.0100, L500.2500, L300.3900 #### [facility] [address] [place], [address] MCH (RBC) [Entitic mass] 29.2 pg Normal 27.0-32.0 [facility] Comment on above: Performed By: #### L 100.0100, L500.2500, L300.3900 #### [facility] [address] [place], [address] MCHC (RBC) [Mass/Vol] 34.3 g/dL Normal 32-36 [facility] Comment on above: Performed By: #### L 100.0100, L500.2500, L300.3900 #### [facility] [address] [place], [address] MCV (RBC) [Entitic vol] 85.3 fL Normal 80-94 [facility] Comment on above: Performed By: #### L 100.0100, L500.2500, L300.3900 #### [facility] [address] [place], [address] Monocytes/100 WBC (Bld) 9.8 % Normal 0-10 [facility] Comment on above: Performed By: #### L 100.0100, L500.2500, L300.3900 #### [facility] [address] [place], [address] Neutrophils/100 WBC (Bld) 63.0 % Normal 47-70 [facility] Comment on above: Performed By: #### L 100.0100, L500.2500, L300.3900 #### [facility] [address] [place], [address] Nucleated RBC (Bld) [#/Vol] 0 10*3/uL Normal 0-5 [facility] Comment on above: Performed By: #### L 100.0100, L500.2500, L300.3900 #### [facility] [address] [place], [address] Platelet mean volume (Bld) [Entitic vol] 9.6 fL Normal 6.2-12.0 [facility] Comment on above: Performed By: #### L 100.0100, L500.2500, L300.3900 #### [facility] [address] [place], [address] Platelets (Bld) [#/Vol] 216 10*3/uL Normal 150-450 [facility] Comment on above: Performed By: #### L 100.0100, L500.2500, L300.3900 #### [facility] [address] [place], [address] RBC (Bld) [#/Vol] 4.48 10*6/uL Low 4.6-6.2 [facility] Comment on above: Performed By: #### L 100.0100, L500.2500, L300.3900 #### [facility] [address] [place], [address] RDW SD 38.9 fl Normal 35.1-43.9 [facility] Comment on above: Performed By: #### L 100.0100, L500.2500, L300.3900 #### [facility] [address] [place], [address] WBC (Bld) [#/Vol] 5.9 10*3/uL Normal 4.4-11.0 [facility] Comment on above: Performed By: #### L 100.0100, L500.2500, L300.3900 #### [facility] [address] [place], [address] Carbon dioxide measurementOr dered By: Yolanda Dean on 07-28-2024 CO2 [Moles/Vol] 24.0 mmol/L 21.0-32.0 [facility] Cardiology Visit Reporton Cardiology Visit Report [facility] [address] [place] [address] OFFICE VISIT Date of Service: 07/28/24 MR#: [id number] Acct: [id number] Name: MICHAEL BATES Jr. Rep #: [id number] : 1955 Provider: CAMELIA Hurd Age/Sex: 69/M Location: [facility] Status: Signed HPI HPI History of Present [...] negative for ischemia. He was admitted to [facility] on October 09, 2023 with chest discomfort. [...] 97 Intake Visit Reasons: 3 M FU Sidehand Required: No Is patient in pain?: No Allergies fludrocortisone (From Florinef) Allergy (Severe, Verified 07/28/24 08:11) ANGIOEDEMA losartan Adverse Reaction (Severe, Verified 07/28/24 08:11) Angioedema iodine Adverse Reaction (Verified 07/28/24 08:11) unknown perfume Adverse Reaction (Verified 07/28/24 08:11) Other Medications ???Medication ???Instructions ???Recorded ???Confirmed ???Type aspirin 81 mg tablet,delayed 81 mg PO DAILY@0800 [facility] 09/13/13 07/28/24 History release omega 6-xho-wtt-fish oil 1,000 mg 1,000 mg PO QDAY [...] supplement 0 (more content not included)... Normal [facility] Chest PA and Lateralon 07-28 Chest PA and Lateral [facility] [address] [place], [place] [address] Chest PA and Lateral MR#: [id number] Acct: [id number] Name: MICHAEL BATES Jr. Rep #: [id number] : 1955 M 69 From: Brijesh Patrick DO PCP: Dr. Nadir Grady MD Status: [facility] CLI Study: Chest PA and Lateral Date of Exam: 07/28/24 Exam# [id number] Ordering Dr: Yolanda Dean [id number] INDICATION: cath EXAMINATION/TECHNIQUE: X-RAY - XR Chest [...] CC: Dr. Nadir Grady MD; CAMELIA Julian Machine Filler Shredder: Signed Normal [facility] Chloride measurementOrdered By: Yolanda Dean on 07-28-2024 Chloride [Moles/Vol] 107 mmol/L 98-107 [facility] Eosinophil percentageOrdered By: Yolanda Dean on 07-28-2024 Eosinophils/100 WBC (Bld) 5.9 % High 0-5 [facility] Erythrocyte distribution wid th ratioOrdered By: Yolanda Dean on 07-28-2024 Erythrocyte distribution width (RBC) [Ratio] 12.6 % 11.6-14.6 [facility] Erythrocyte distribution wid th standard deviationOrdered By: Yolanda Dean on 07-28-2024 Erythrocyte distribution width (RBC) [Entitic vol] 38.9 fL 35.1-43.9 [facility] Estimated glomerular filtrat ion rate (GFR) AmericanOrdered By: Yolanda Dean on 07-28-2024 Estimated GFR (MDRD) Amer 91 mL/min >60 [facility] Comment on above: GFR Calc Glomerular filtration rate ( GFR) estimationOrdered By: Yolanda Dean on 07-28-2024 Estimated GFR (MDRD) Non-Af Amer 76 mL/min >60 [facility] Comment on above: Non- GFR Calc Glucose measurementOrdered B y: Yolanda Dean on 07-28-2024 Glucose [Mass/Vol] 190 mg/dL High 74-106 [facility] Comment on above: Fasting Glucose resu lt greater than or equal to 126 mg/dL suggests DIABETES MELLITUS per A.D.A. criteria. Hematocrit Auto (Bld) [Volum e fraction]Ordered By: Yolanda Dean on 07-28-2024 Hematocrit (Bld) [Volume fraction] 38.2 % Low 40-54 [facility] Hemoglobin measurementOrdere d By: Yolanda Dean on 07-28-2024 Hemoglobin (Bld) [Mass/Vol] 13.1 g/dL 13.0-16. 5 [facility] Immature granulocytes/100 WB C Auto (Bld)Ordered By: Yolanda Dean on 07-28-2024 Immature granulocytes/100 WBC (Bld) 0.700 % 0.0-0.9 [facility] Comment on above: IG% - Immature Granu locytes (promyelocytes, myelocytes and metamyelocytes) > 1% indicates that a LEFT SHIFT is Present. International normalized rat io (INR) calculationOrdered By: Yolanda Dean on 07-28-2024 INR Coag (Bld) [Relative time] 0.9 {INR} [facility] Lymphocytes Auto (Unsp spec) [#/Vol]Ordered By: Yolanda Dean on 07-28-2024 Lymphocytes (Bld) [#/Vol] 1.17 10*3/uL 0.83-4.5 1 [facility] Lymphocytes/100 WBC Auto (Un sp spec)Ordered By: Yolanda Dean on 07-28-2024 Lymphocytes/100 WBC (Bld) 19.8 % 19-41 [facility] MCV (mean corpuscular volume ) determinationOrdered By: Yolanda Dean on 07-28-2024 MCV (RBC) [Entitic vol] 85.3 fL 80-94 [facility] Mean corpuscular hemoglobin (MCH) determinationOrdered By: Yolanda Dean on 07-28-2024 MCH (RBC) [Entitic mass] 29.2 pg 27.0-32.0 [facility] Mean corpuscular hemoglobin concentration (MCHC) determinationOrdered By: Yolanda Dean on 07-28-2024 MCHC (RBC) [Mass/Vol] 34.3 g/dL 32-36 [facility] Mean platelet volume determi nationOrdered By: Yolanda Dean on 07-28-2024 Platelet mean volume (Bld) [Entitic vol] 9.6 fL 6.2-12.0 [facility] Monocyte percentageOrdered B y: Yolanda Dean on 07-28-2024 Monocytes/100 WBC (Bld) 9.8 % 0-10 [facility] Neutrophil percentageOrdered By: Yolanda Dean on 07-28-2024 Neutrophils/100 WBC (Bld) 63.0 % 47-70 [facility] Nucleated red blood cell per centageOrdered By: Yolanda Dean on 07-28-2024 Nucleated RBC/100 WBC (Bld) [Ratio] 0 % 0-5 [facility] Platelet countOrdered By: Janette Dean on 07-28-2024 Platelets (Bld) [#/Vol] 216 10*3/uL 150-450 [facility] Potassium measurementOrdered By: Yolanda Dean on 07-28-2024 Potassium [Moles/Vol] 4.2 mmol/L 3.5-5.1 [facility] Prothrombin Time w/INRon INR Coag (PPP) [Relative time] 0.9 {INR} Normal [facility] Comment on above: Performed By: #### L 3410.9999, L505.5000 #### [facility] [address] [place], [address] PT Coag (PPP) [Time] 12.6 s Normal 11.7-14.9 [facility] Comment on above: Performed By: #### L 3410.9999, L505.5000 #### [facility] [address] [place], [address] Prothrombin timeOrdered By: Yolanda Dean on 07-28-2024 PT Coag (PPP) [Time] 12.6 s 11.7-14.9 [facility] RBC Auto (Bld) [#/Vol]Ordere d By: Yolanda Dean on 07-28-2024 RBC (Bld) [#/Vol] 4.48 10*6/uL Low 4.6-6.2 [facility] Serum anion gap measurementO rdered By: Yolanda Dean on 07-28-2024 Anion gap [Moles/Vol] 6 mmol/L 5-15 [facility] Serum or plasma calcium jaziel urement (mass/volume)Ordered By: Yolanda Dean on 07-28-2024 Calcium [Mass/Vol] 9.5 mg/dL 8.5-10.1 [facility] Serum or plasma creatinine m easurement (mass/volume)Ordered By: Yolanda Dean on 07-28-2024 Creatinine [Mass/Vol] 1.03 mg/dL 0.70-1.30 [facility] Comment on above: The validity of the calculated GFR & GFRAA in patients over 70 years has not been determined. Clinical correlation is essential. Serum or plasma urea nitroge n measurement (mass/volume)Ordered By: Yolanda Dean on 07-28-2024 Urea nitrogen [Mass/Vol] 17 mg/dL 7-18 [facility] Sodium levelOrdered By: Mariano saldivare Jermaine on 07-28-2024 Sodium [Moles/Vol] 137 mmol/L 136-145 [facility] White blood cell (WBC) count Ordered By: Yolanda Dean on 07-28-2024 WBC (Bld) [#/Vol] 5.9 10*3/uL 4.4-11.0 [facility] CNOVon 07-24-2024 CNOV Office Visit (UCWSTR ) COLTAIMEEMICHAEL BROCK ([id number]) 1955 M Date Time Provider Department 07/24/24 9:15 AM [facility] During your visit today, we recorded the following information about you: Temperature Pulse Respiration Blood pressure 97.7 degrees 80/minute 16/minute 124/64 Weight 81.9 kg Bridget Joseph APRN.CUSTOMER RELATIONS ASSISTANT 07/24/2024 10:19 AM Signed This note was created using Tapturiter. Subjective Michael Bates is a 69 year [...] - XR WRIST GENERAL 3V PA/LAT/OBL RIGHT Bridgte Joseph APRN.CNP Allergies As of Date: 07/24/2024 Noted Allergy Reaction FLORINEF (FLUDROCORTISONE) 04/25/2022 18 - Angioedema LOSARTAN 10/24/2023 18 - Angioedema PERFUMES 01/20/2012 14 - Other: See Comments Comments: sneezing Date Reviewed: 07/24/2024 Reviewed by: Bridget Joseph APRN.CUSTOMER RELATIONS ASSISTANT - Fully Assessed Reason for Visit: Wrist/forearm Injury [1379] Cmt: right wrist pain x 1 day, fall Primary Visit Diagnosis:Wrist pain, right [M25.531] Order(s):XR WRIST GENERAL 3V PA/LAT/OBL RIGHT [[id number]] Order #: [id number] FUTURE Prescriptions as of 07/24/2024 - empagliflozin [...] by mouth two times a day. Per [facility] - carvedilol (COREG) 3.125 mg [...] 2 DM - Uncontrolled . Insulin: No - nitroglycerin sublingual (NITROSTAT) 0.4 [...] strain [S13.9XXA] 07/30/2010 08/30/2010 Other physical therapy [XLT3526] 08/16/2010 08/30/2010 Essential hypertension, benign [I10] 01/17/2012 DDD (degenerative disc disease), cervical [M50.*01/20/2012 Cervical spondylosis [M47.812] 01/20/2012 Chronic sinusitis [J32.9] Hyperlipidemia [E78.5] 08/04/2015 Mixed hyperli (more content not included)... Normal [facility] XR WRIST 3V PA/LAT/OBL RTon 07-24-2024 [...] radiographic abnormalities seen in the right wrist. Machine Filler Shredder: [facility] Transcribe Date/Time: Jul 24 2024 10:00A Dictated by : JASSI NEWSOME MD This examination was interpreted and the report reviewed and electronically signed by: JASSI NEWSOME MD on Jul 24 2024 10:02AM EST [id number] Normal [facility] XR Wrist - right PA and Late ral and Obliqueon 07-24-2024 IMPRESSION: No acute radiographic abnormalities seen in the right wrist. Machine Filler Shredder: [facility] Transcribe Date/Time: Jul 24 2024 10:00A Dictated [...] soft tissue swelling. DIVISION OF RADIOLOGY Provider, Michelle Sams - 07/24/2024 * * *Final Report* * [...] radiographic abnormalities seen in the right wrist. Machine Filler Shredder: [facility] Transcribe Date/Time: Jul 24 2024 10:00A Dictated by : JASSI NEWSOME MD This examination was interpreted and the report reviewed and electronically signed by: JASSI NEWSOME MD on Jul 24 2024 10:02AM [facility] Radiology Study observation (narrative) [facility] XR Wrist - right PA and Late ral and ObliqueOrdered By: Cc Provider on 07-24-2024 [facility] MICHAEL BATSE ([id number]) 1955 M Date Time Provider Department 07/21/24 MARTHA BOSTON During your visit today, we [...] Order(s):ALK PHOS ISOENZYM BL [SQALKISO] Order #: [id number] FUTURE GGT [SQGGT] Order #: [id number] FUTURE empagliflozin (JARDIANCE) 10 mg tabletTake 1 [...] 1 tablet by mouth once daily. Per [facility] - atorvastatin (LIPITOR) 80 mg [...] by mouth two times a day. Per [facility] - ticagrelor (BRILINTA) 90 mg tablet Take 1 tablet by mouth two times a day. Per [facility] - docosahexaenoic acid/epa (FISH OIL [...] strain [S13.9XXA] 07/30/2010 08/30/2010 Other physical therapy [UIK3115] 08/16/2010 08/30/2010 Essential hypertension, benign [I10] 01/17/2012 DDD (degenerative disc disease), cervical [M50.*01/20/2012 Cervical spondylosis [M47.812] 01/20/2012 Chronic sinusitis [J32.9] Hyperlipidemia [E78.5] 08/04/2015 Mixed hyperlipidemia [E78.2] 08/04/2015 Lumbar radiculopathy [M54.16] Chronic post-traumatic headache [G44.329] 08/04/2015 Bilateral occipital neuralgia [M54.81] 08/04/2015 Seborrheic dermatitis [L21.9] 08/04/2015 Elevated LFTs [R79.89] 08/05/2015 Carotid stenos (more content not included)... Normal [facility] CBC W Auto Differential pane l (Bld)on 07-20-2024 Basophils (Bld) [#/Vol] 0.06 10*3/uL Normal <0.11 [facility] Comment on above: Order Comment: Speci men Type: BLOOD SPECIMENOrdering Facility: [facility] Address: [address] [place] [address] Performed By: #### 5 7021-8 ####[facility] LABCLIA [id number] [place] [address] [place] Basophils/100 WBC (Bld) 0.9 % Normal C [facility] Comment on above: Order Comment: Speci men Type: BLOOD SPECIMENOrdering Facility: [facility] Address: [address] [place] [address] Performed By: #### 5 7021-8 ####[facility] LABCLIA [id number] [place] [address] [place] Differential cell count method Nom (Bld) Auto Normal [facility] Comment on above: Order Comment: Speci men Type: BLOOD SPECIMENOrdering Facility: [facility] Address: [address] [place] [address] Performed By: #### 5 7021-8 ####[facility] LABCLIA [id number] [place] [address] [place] Eosinophils (Bld) [#/Vol] 0.25 10*3/uL Normal <0.46 [facility] Comment on above: Order Comment: Speci men Type: BLOOD SPECIMENOrdering Facility: [facility] Address: [address] [place] [address] Performed By: #### 5 7021-8 ####[facility] LABCLIA [id number] [place] [address] [place] Eosinophils/100 WBC (Bld) 3.6 % Normal [facility] Comment on above: Order Comment: Speci men Type: BLOOD SPECIMENOrdering Facility: [facility] Address: [address] [place] [address] Performed By: #### 5 7021-8 ####[facility] LABCLIA [id number] [place] [address] [place] Erythrocyte distribution width (RBC) [Ratio] 12.6 % Normal 11.5-15.0 [facility] Comment on above: Order Comment: Speci men Type: BLOOD SPECIMENOrdering Facility: [facility] Address: [address] [place] [address] Performed By: #### 5 7021-8 ####[facility] LABCLIA [id number] [place] [address] [place] Hematocrit (Bld) [Volume fraction] 40.5 % Normal 39.0-51.0 [facility] Comment on above: Order Comment: Speci men Type: BLOOD SPECIMENOrdering Facility: [facility] Address: [address] [place] [address] Performed By: #### 5 7021-8 ####[facility] LABCLIA [id number] [place] [address] [place] Hemoglobin (Bld) [Mass/Vol] 13.3 g/dL Normal 13.0-17. 0 [facility] Comment on above: Order Comment: Speci men Type: BLOOD SPECIMENOrdering Facility: [facility] Address: [address] [place] [address] Performed By: #### 5 7021-8 ####[facility] LABCLIA [id number] [place] [address] [place] Immature granulocytes (Bld) [#/Vol] 10*3/uL Normal <0.10 [facility] Comment on above: Order Comment: Speci men Type: BLOOD SPECIMENOrdering Facility: [facility] Address: [address] [place] [address] Performed By: #### 5 7021-8 ####[facility] LABCLIA [id number] [place] [address] [place] Immature granulocytes/100 WBC (Bld) 0.3 % Normal [facility] Comment on above: Order Comment: Speci men Type: BLOOD SPECIMENOrdering Facility: [facility] Address: [address] [place] [address] Performed By: #### 5 7021-8 ####[facility] LABCLIA [id number] [place] [address] [place] Lymphocytes (Bld) [#/Vol] 1.06 10*3/uL Normal 1.00-4.0 0 [facility] Comment on above: Order Comment: Speci men Type: BLOOD SPECIMENOrdering Facility: [facility] Address: [address] [place] [address] Performed By: #### 5 7021-8 ####[facility] LABCLIA [id number] [place] [address] [place] Lymphocytes/100 WBC (Bld) 15.3 % Normal [facility] Comment on above: Order Comment: Speci men Type: BLOOD SPECIMENOrdering Facility: [facility] Address: [address] [place] [address] Performed By: #### 5 7021-8 ####[facility] LABCLIA [id number] [place] [address] [place] MCH (RBC) [Entitic mass] 28.4 pg Normal 26.0-34.0 [facility] Comment on above: Order Comment: Speci men Type: BLOOD SPECIMENOrdering Facility: [facility] Address: [address] [place] [address] Performed By: #### 5 7021-8 ####[facility] LABCLIA [id number] [place] [address] [place] MCHC (RBC) [Mass/Vol] 32.8 g/dL Normal 30.5-36.0 [facility] Comment on above: Order Comment: Speci men Type: BLOOD SPECIMENOrdering Facility: [facility] Address: [address] [place] [address] Performed By: #### 5 7021-8 ####[facility] LABIA [id number] [place] [address] [place] MCV (RBC) [Entitic vol] 86.5 fL Normal 80.0-100.0 C [facility] Comment on above: Order Comment: Speci men Type: BLOOD SPECIMENOrdering Facility: [facility] Address: [address] [place] [address] Performed By: #### 5 7021-8 ####[facility] LABCLIA [id number] [place] [address] [place] Monocytes (Bld) [#/Vol] 0.57 10*3/uL Normal <0.87 [facility] Comment on above: Order Comment: Speci men Type: BLOOD SPECIMENOrdering Facility: [facility] Address: [address] [place] [address] Performed By: #### 5 7021-8 ####[facility] LABCLIA [id number] [place] [address] [place] Monocytes/100 WBC (Bld) 8.2 % Normal C [facility] Comment on above: Order Comment: Speci men Type: BLOOD SPECIMENOrdering Facility: [facility] Address: [address] [place] [address] Performed By: #### 5 7021-8 ####[facility] LABCLIA [id number] [place] [address] [place] Neutrophils (Bld) [#/Vol] 4.96 10*3/uL Normal 1.45-7.5 0 [facility] Comment on above: Order Comment: Speci men Type: BLOOD SPECIMENOrdering Facility: [facility] Address: [address] [place] [address] Performed By: #### 5 7021-8 ####[facility] LABIA [id number] [place] [address] [place] Neutrophils/100 WBC (Bld) 71.7 % Normal [facility] Comment on above: Order Comment: Speci men Type: BLOOD SPECIMENOrdering Facility: [facility] Address: [address] [place] [address] Performed By: #### 5 7021-8 ####[facility] LABCLIA [id number] [place] [address] [place] Nucleated RBC (Bld) [#/Vol] 10*3/uL Normal <0.01 [facility] Comment on above: Order Comment: Speci men Type: BLOOD SPECIMENOrdering Facility: [facility] Address: [address] [place] [address] Performed By: #### 5 7021-8 ####[facility] LABCLIA [id number] [place] [address] [place] Nucleated RBC/100 WBC (Bld) [Ratio] 0.0 /100 WBC Normal [facility] Comment on above: Order Comment: Speci men Type: BLOOD SPECIMENOrdering Facility: [facility] Address: [address] [place] [address] Performed By: #### 5 7021-8 ####[facility] LABCLIA [id number] [place] [address] [place] Platelet mean volume (Bld) [Entitic vol] 9.9 fL Normal 9.0-12.7 [facility] Comment on above: Order Comment: Speci men Type: BLOOD SPECIMENOrdering Facility: [facility] Address: [address] [place] [address] Performed By: #### 5 7021-8 ####[facility] LABCLIA [id number] [place] [address] [place] Platelets (Bld) [#/Vol] 218 10*3/uL Normal 150-400 [facility] Comment on above: Order Comment: Speci men Type: BLOOD SPECIMENOrdering Facility: [facility] Address: [address] [place] [address] Performed By: #### 5 7021-8 ####[facility] LABCLIA [id number] [place] [address] [place] RBC (Bld) [#/Vol] 4.68 10*6/uL Normal 4.20-6.00 [facility] Comment on above: Order Comment: Speci men Type: BLOOD SPECIMENOrdering Facility: [facility] Address: [address] [place] [address] Performed By: #### 5 7021-8 ####[facility] LABCLIA [id number] [place] [address] [place] WBC (Bld) [#/Vol] 6.92 10*3/uL Normal 3.70-11.00 [facility] Comment on above: Order Comment: Speci men Type: BLOOD SPECIMENOrdering Facility: [facility] Address: [address] [place] [address] Performed By: #### 5 7021-8 ####[facility] LABCLIA [id number] [place] [id number] [facility] CNOVon 07-20-2024 CNOV Office Visit (FAMPWS ) MICHAEL BATES ([id number]) 1955 M Date Time Provider Department 07/20/24 7:20 AM [facility] your visit today, we recorded the following information about you: Temperature Pulse Respiration Blood pressure 97.8 degrees 71/minute 16/minute 132/62 Weight Height 77.6 kg 1.747 m Martha Boston PA-C 07/20/2024 9:14 AM Signed Micheal Bates is a 69 year old male [...] ulnar artery (more content not included)... Normal [facility] Comprehensive metabolic 2000 panelon 07-20-2024 Albumin [Mass/Vol] 4.9 g/dL Normal 3.9-4.9 [facility] Comment on above: Order Comment: Walter sexton Type: BLOOD SPECIMENOrdering Facility: [facility] Address: [address] [place] [address] Performed By: #### 5 0190-8, LIPNF, 3016-3, 07333-5 ####[facility] LABCLIA [id number] [place] [address] [address] [place] ALP [Catalytic activity/Vol] 144 U/L High 38-113 [facility] Comment on above: Order Comment: Walter sexton Type: BLOOD SPECIMENOrdering Facility: [facility] Address: [address] [place] [address] Performed By: #### 5 0190-8, LIPNF, 3015-3, 03770-4 ####[facility] LABCLIA [id number] [place] [address] [place] ALT [Catalytic activity/Vol] 19 U/L Normal 10-54 [facility] Comment on above: Order Comment: Speci men Type: BLOOD SPECIMENOrdering Facility: [facility] Address: [address] [place] [address] Performed By: #### 5 0190-8, LIPNF, 3015-3, 68200-5 ####[facility] LABCLIA [id number] [place] [address] [place] Anion gap [Moles/Vol] 14 mmol/L Normal 8-15 [facility] Comment on above: Order Comment: Speci men Type: BLOOD SPECIMENOrdering Facility: [facility] Address: [address] [place] [address] Performed By: #### 5 0190-8, LIPNF, 3, ####[facility] LABCLIA [id number] [place] [address] [place] AST [Catalytic activity/Vol] 16 U/L Normal 14-40 [facility] Comment on above: Order Comment: Speci men Type: BLOOD SPECIMENOrdering Facility: [facility] Address: [address] [place] [address] Performed By: #### 5 0190-8, LIPNF, 3, ####[facility] LABIA [id number] [place] [address] [place] Bilirubin [Mass/Vol] 0.6 mg/dL Normal 0.2-1.3 [facility] Comment on above: Order Comment: Speci men Type: BLOOD SPECIMENOrdering Facility: [facility] Address: [address] [place] [address] Performed By: #### 5 0190-8, LIPNF, 3016-3, 75003-7 ####[facility] LABCLIA [id number] [place] [address] [place] Calcium [Mass/Vol] 9.6 mg/dL Normal 8.5-10.2 [facility] Comment on above: Order Comment: Speci men Type: BLOOD SPECIMENOrdering Facility: [facility] Address: [address] [place] [address] Performed By: #### 5 0190-8, LIPNF, 6-3, 01922-9 ####[facility] LABCLIA [id number] [place] [address] [place] Chloride [Moles/Vol] 98 mmol/L Normal 98-107 [facility] Comment on above: Order Comment: Speci men Type: BLOOD SPECIMENOrdering Facility: [facility] Address: [address] [place] [address] Performed By: #### 5 0190-8, LIPNF, 3015-3, 22996-9 ####[facility] LABCLIA [id number] [place] [address] [place] CO2 [Moles/Vol] 23 mmol/L Normal 22-30 [facility] Comment on above: Order Comment: Speci men Type: BLOOD SPECIMENOrdering Facility: [facility] Address: [address] [place] [address] Performed By: #### 5 0190-8, LIPNF, 3015-3, 32875-3 ####[facility] LABCLIA [id number] [place] [address] [place] Creatinine [Mass/Vol] 0.90 mg/dL Normal 0.73-1.22 [facility] Comment on above: Order Comment: Speci men Type: BLOOD SPECIMENOrdering Facility: [facility] Address: [address] [place] [address] Performed By: #### 5 0190-8, LIPNF, 3016-3, 95448-7 ####[facility] LABIA [id number] [place] [address] [place] Creatinine and Glomerular filtration rate.predicted panel (S/P/Bld) 91 mL/min/1.73m??? Normal >=60 [facility] Comment on above: Order Comment: Walter sexton Type: BLOOD SPECIMENOrdering Facility: [facility] Address: [address] [place] [address] Result Comment: Abril mated Glomerular Filtration Rate [...] actual GFR. Performed By: #### 5 0190-8, LIPHELEN, 3016-3, 54653-2 ####[facility] LABCLIA [id number] [place] [address] [place] Glucose [Mass/Vol] 253 mg/dL High 74-99 [facility] Comment on above: Order Comment: Walter sexton Type: BLOOD SPECIMENOrdering Facility: [facility] Address: [address] [place] [address] Result Comment: The [place] Diabetes Association (ADA) provides guidance for cutoff [...] Standards of Medical Care in Diabetes 2016, [place] Diabetes Association. Diabetes Care. 2016.39(Suppl 1). Performed By: #### 5 0190-8, LIPNF, 3016-3, 60922-0 ####[facility] LABCLIA [id number] [place] [id number] [place] Potassium [Moles/Vol] 4.2 mmol/L Normal 3.7-5.1 [facility] Comment on above: Order Comment: Speci men Type: BLOOD SPECIMENOrdering Facility: [facility] Address: [address] [place] [address] Performed By: #### 5 0190-8, LIPNF, 6-3, 23885-7 ####[facility] LABCLIA [id number] [place] [address] [place] Protein [Mass/Vol] 7.8 g/dL Normal 6.3-8.0 [facility] Comment on above: Order Comment: Speci men Type: BLOOD SPECIMENOrdering Facility: [facility] Address: [address] [place] [address] Performed By: #### 5 0190-8, LIPNF, 3015-3, 25534-7 ####[facility] LABIA [id number] [place] [address] [place] Sodium [Moles/Vol] 135 mmol/L Low 136-144 [facility] Comment on above: Order Comment: Speci men Type: BLOOD SPECIMENOrdering Facility: [facility] Address: [address] [place] [address] Performed By: #### 5 0190-8, LIPNF, 3016-3, 98276-9 ####[facility] LABCLIA [id number] [place] [address] [place] Urea nitrogen [Mass/Vol] 14 mg/dL Normal 9-24 [facility] Comment on above: Order Comment: Speci men Type: BLOOD SPECIMENOrdering Facility: [facility] Address: [address] [place] [address] Performed By: #### 5 0190-8, LIPNF, 6-3, 58942-5 ####[facility] LABCLIA [id number] [place] [address] [place] HbA1c (Bld)on 07-20-2024 Average glucose Estimated from glycated hemoglobin (Bld) [Mass/Vol] 220 mg/dL Normal [facility] Comment on above: Order Comment: Speckati men Type: BLOOD SPECIMENOrdering Facility: [facility] Address: [address] [place] [address] Result Comment: eAG: (Estimated average glucose) is a calculated value from HgbA1c and is banking representative of the average blood glucose level in the last 2-3 month period. Performed By: #### 5 5454-3 ####[facility] LABIA [id number] [place] [address] [place] HbA1c (Bld) [Mass fraction] 9.3 % High 4.3-5.6 [facility] Comment on above: Order Comment: Walter sexton Type: BLOOD SPECIMENOrdering Facility: [facility] Address: [address] [place] [address] Result Comment: Amer [place] Diabetes Association guidelines indicate that patients with HgbA1c in the range 5.7-6.4% are at increased risk for development of diabetes, and intervention by lifestyle modification may be beneficial. HgbA1c greater or equal to 6.5% is considered diagnostic of diabetes. Performed By: #### 5 5454-3 ####[facility] LABCLIA [id number] [place] [address] [place] Iron and Iron binding capaci ty panelon 07-20-2024 Iron [Mass/Vol] 79 ug/dL Normal 41-186 [facility] Comment on above: Order Comment: Walter sexton Type: BLOOD SPECIMENOrdering Facility: [facility] Address: [address] [place] [address] Performed By: #### 5 0190-8, LIPNF, 6-3, 28242-4 ####[facility] LABCLIA [id number] [place] [address] [place] Iron binding capacity [Mass/Vol] 372 ug/dL Normal 232-386 [facility] Comment on above: Order Comment: Speci men Type: BLOOD SPECIMENOrdering Facility: [facility] Address: [address] [place] [address] Performed By: #### 5 0190-8, LIPNF, 3016-3, 72523-6 ####[facility] LABCLIA [id number] [place] [address] [place] Iron/TIBC [Molar ratio] 21.2 % Normal 15.0-57.0 [facility] Comment on above: Order Comment: Speci men Type: BLOOD SPECIMENOrdering Facility: [facility] Address: [address] [place] [address] Performed By: #### 5 0190-8, LIPNF, 301-3, 21484-0 ####[facility] LABCLIA [id number] [place] [address] [place] LIPID PANEL, NONFASTINGon Cholesterol [Mass/Vol] 114 mg/dL Normal <200 [facility] Comment on above: Order Comment: Speci men Type: BLOOD SPECIMENOrdering Facility: [facility] Address: [address] [place] [address] Result Comment: <200 mg/dL, Desirable 200-239 mg/dL, Borderline high >239 mg/dL, High Performed By: #### 5 0190-8, LIPNF, 3016-3, 08469-9 ####[facility] LABIA [id number] [place] [address] [place] HDL CHOLESTEROL, NF 43 mg/dL Normal >39 [facility] Comment on above: Order Comment: Speci men Type: BLOOD SPECIMENOrdering Facility: [facility] Address: [address] [place] [address] Result Comment: 40-5 9 mg/dL, Acceptable >59 mg/dL, High: Negative risk factor for coronary heart disease <40 mg/dL, Low: Positive risk factor for coronary heart disease Performed By: #### 5 0190-8, LIPNF, 3015-, ####[facility] LABCLIA [id number] [place] [address] [place] LDL CHOLESTEROL, NF 56 mg/dL Normal <100 [facility] Comment on above: Order Comment: Walter sexton Type: BLOOD SPECIMENOrdering Facility: [facility] Address: [address] [place] [address] Result Comment: <100 mg/dL, Optimal 100-129 mg/dL, Near optimal/above optimal 130-159 mg/dL, Borderline high 160-189 mg/dL, High >189 mg/dL, Very high Secondary prevention optimal LDL Cholesterol levels are recommended to be < 70 mg/dL Performed By: #### 5 0190-8, LIPHELEN, 3015-10, ####[facility] LABCLIA [id number] [address] [place] LDL/HDL RATIO, NF 1.30 mg/dL Normal <2.54 [facility] Comment on above: Order Comment: Walter sexton Type: BLOOD SPECIMENOrdering Facility: [facility] Address: [address] [place] [address] Result Comment: Refe rence: 1. National Cholesterol Education Program ATP III Guideline At-A-Glance Quick Desk Reference: National Heart, Lung, and Blood [place]. National Institutes of Health. 2001: NIH Publication No. 01-3305. 2. An International Atherosclerosis Society position paper: global recommendations for the management of dyslipidemia: executive summary, Atherosclerosis. 2014: 232(2):410-413. Performed By: #### 5 0190-8, LIPHELEN, 3015-, ####[facility] LABCLIA [id number] [place] [address] [place] NON HDL CHOL, NF 71 mg/dL Normal <130 [facility] Comment on above: Order Comment: Speci men Type: BLOOD SPECIMENOrdering Facility: [facility] Address: [address] [place] [address] Result Comment: <130 mg/dL, Optimal 130-159 mg/dL, Near optimal/above optimal 160-189 mg/dL, Borderline high 190-219 mg/dL, High >219 mg/dL, Very high Secondary prevention optimal non HDL Cholesterol levels are recommended to be <100 mg/dL Performed By: #### 5 0190-8, LIPNF, 3015-3, 77846-0 ####[facility] LABCLIA [id number] [place] [address] [place] T CHOL/HDL RATIO NF 2.65 mg/dL Normal <5.10 [facility] Comment on above: Order Comment: Speci men Type: BLOOD SPECIMENOrdering Facility: [facility] Address: [address] [place] [address] Performed By: #### 5 0190-8, LIPNF, 3015-3, 62124-7 ####[facility] LABCLIA [id number] [place] [address] [place] TRIGLYCERIDES, NF 73 mg/dL Normal <150 [facility] Comment on above: Order Comment: Speci men Type: BLOOD SPECIMENOrdering Facility: [facility] Address: [address] [place] [address] Result Comment: <150 mg/dL, Normal 150-199 mg/dL, Borderline high 200-499 mg/dL, High >499 mg/dL, Very high Performed By: #### 5 0190-8, LIPNF, 3015-3, 09674-3 ####[facility] LABCLIA [id number] [place] [id number] [place] VLDL CHOLESTEROL, NF 15 mg/dL Normal <30 [facility] Comment on above: Order Comment: Speci men Type: BLOOD SPECIMENOrdering Facility: [facility] Address: [address] [place] [address] Performed By: #### 5 0190-8, LIPNF, 3016-3, 97593-6 ####[facility] LABIA [id number] [place] [id number] [place] TSH SerPl-aCncon 07-20-2024 TSH Qn 3.090 m[IU]/L Normal 0.270-4.20 0 [facility] Comment on above: Order Comment: Speci men Type: BLOOD SPECIMENOrdering Facility: [facility] Address: [address] [place] [address] Performed By: #### 5 0190-8, LIPNF, 3016-3, 47043-2 ####[facility] LABIA [id number] [address] 12 Lead EKG performed by [facility] on 05-28-2024 12 Lead EKG performed by [address] [address] 12 Lead EKG performed by [facility] 05/28/24 0859 MR#: [id number] Acct: [id number] Name: MICHAEL BATES Jr. Rep #: [id number] : 1955 69 From: Yolanda Ye Attending Dr: Azul Cornell Status: DEP AMB Ordering Dr: Yolanda Dean Date: 05/03 03/24 Location: [facility] Sex: M C Admitted: [facility]/12 Lead EKG performed by [facility] ECG Report Interpretation ----Sinus Rhythm WITHIN NORMAL LIMITSElectronically signed on 06/08/2024 at 09:49 by Jd Kern Software Version [id number] 06/08/24 0953 Date Yolanda DENISE CC: Dr. Nadir Grady MD Date Dictated: 05/28/24858 Date Transcribed: 05/28/24858 Machine Filler Shredder: SHAHEEN Signed Normal [facility] Office Visit Reporton 2023 Office Visit Report [facility] [address] [place] [address] OFFICE VISIT Date of Service: 05/28/24 MR#: [id number] Acct: [id number] Patient: MICHAEL BATES Jr. Rep #: [id number] : 1955 Provider: Azul Cornell Age/Sex: 69/M Location: [facility] Status: Signed Intake Vital Signs 04/19/24 08:17 05/28/24 09:00 Height 5 ft 10 in Weight: 177 lb BMI 25.4 BP 144/67 H 139/63 H Blood Pressure Location Lt brachial Lt brachial Position Sitting Sitting Respiration 18 16 Pulse 68 73 Pulse Source Monitor NIBP Pulse Oximetry (%) 97 96 Oxygen Delivery Method room air Intake Visit Reasons: Dizziness (cardiology) Chief Complaint: Dizzy, fatigue Sidehand Required: No Is patient in pain?: Yes [...] heart health 09/13/13 05/28/24 History release omega 1-pwc-bhp-fish oil 1,000 mg 1,000 mg PO QDAY [...] Today I25.10 - Atherosclerotic heart disease of [place] coronary artery without angina pectoris, I65.23 - [...] year?: No 05/29/24 1013 A> Date Yolanda Small Signature: Date (if applicable) CC: CAMELIA Julian Normal [facility] Cardiology Visit Reporton Cardiology Visit Report [facility] [address] [place] [address] OFFICE VISIT Date of Service: 04/19/24 MR#: [id number] Acct: [id number] Name: MICHAEL BATES Jr. Rep #: [id number] : 1955 Provider: CAMELIA Hurd Age/Sex: 69/M Location: [facility] Status: Signed HPI HPI History of Present [...] negative for ischemia. He was admitted to [facility] on October 09, 2023 with chest discomfort. [...] (%) 97 Intake Visit Reasons: 4 M FU Sidehand Required: No Is patient in pain?: No Allergies fludrocortisone (From Florinef) Allergy (Severe, Verified 04/19/24 08:17) ANGIOEDEMA losartan Adverse Reaction (Severe, Verified 04/19/24 08:17) Angioedema iodine Adverse Reaction (Verified 04/19/24 08:17) unknown perfume Adverse Reaction (Verified 04/19/24 08:17) Other Medications ???Medication ???Instructions ???Recorded ???Confirmed ???Type aspirin 81 mg tablet,delayed 81 mg PO DAILY@0800 heart health 09/13/13 04/19/24 History release omega 7-zbb-unm-fish oil 1,000 mg 1,000 mg PO QDAY supplement 01/06/18 04/19/24 History (120 mg-180 mg) capsule (Fish Oil) metformin 500 mg tablet,extended 1,000 mg PO BID diabetes 07/25/20 04/19/24 History release 24 hr ferrous sulfate 325 mg (65 mg 325 mg PO BID supplement 06/28/22 04/19/24 History iron) tablet (more content not included)... Normal [facility] No Panel Informationon 12-21 IMPRESSION: No acute osseous abnormality Machine Filler Shredder: FAWN Transcribe Date/Time: Dec 22 2023 9:40A Dictated by : LIZA ARDON MD This examination was interpreted and the report reviewed and electronically signed by: LIZA ARDON MD on Dec 22 2023 9:43AM [facility] DIVISION OF RADIOLOGY Radiology Study observation (narrative) [facility] No Panel InformationOrdered By: Ccf Provider on 12-22-2023 [facility] XR Hand - left PA and Latera [...] AP/LAT LT -- LEFT with 3 (accession [id number]), 2 (accession [id number]) views on 3 (accession [id number]), 2 (accession [id number]) images Comparison: None RESULT: Left forearm: No acute fracture or dislocation. Joint spaces are maintained. Left hand: No acute fracture or dislocation. Joint spaces are maintained. DIVISION OF RADIOLOGY Provider, [facility] - 12/22/2023 * * *Final Report* [...] AP/LAT LT -- LEFT with 3 (accession [id number]), 2 (accession [id number]) views on 3 (accession [id number]), 2 (accession [id number]) images Comparison: None RESULT: Left forearm: No acute fracture or dislocation. Joint spaces are maintained. Left hand: No acute fracture or dislocation. Joint spaces are maintained. IMPRESSION IMPRESSION: No acute osseous abnormality Machine Filler Shredder: FAWN Transcribe Date/Time: Dec 22 2023 9:40A Dictated by : LIZA ARDON MD This examination was interpreted and the report reviewed and electronically signed by: LIZA ARDON MD on Dec 22 2023 9:43AM [facility] XR Radius and Ulna [...] AP/LAT LT -- LEFT with 3 (accession [id number]), 2 (accession [id number]) views on 3 (accession [id number]), 2 (accession [id number]) images Comparison: None RESULT: Left forearm: No acute fracture or dislocation. Joint spaces are maintained. Left hand: No acute fracture or dislocation. Joint spaces are maintained. DIVISION OF RADIOLOGY Provider, [facility] - 12/22/2023 * * *Final Report* [...] AP/LAT LT -- LEFT with 3 (accession [id number]), 2 (accession [id number]) views on 3 (accession [id number]), 2 (accession [id number]) images Comparison: None RESULT: Left forearm: No acute fracture or dislocation. Joint spaces are maintained. Left hand: No acute fracture or dislocation. Joint spaces are maintained. IMPRESSION IMPRESSION: No acute osseous abnormality Machine Filler Shredder: PSCB Transcribe Date/Time: Dec 22 2023 9:40A Dictated by : LIZA ARDON MD This examination was interpreted and the report reviewed and electronically signed by: LIZA ARDON MD on Dec 22 2023 9:43AM [facility] Absolute lymphocyte countOrd ered By: Gildardo Walton on 12-04-2023 Lymphocytes Auto (Unsp spec) [#/Vol] 1.03 10*3/uL 0.83-4.51 [facility] Automated lymphocyte count a s percentage of total leukocytesOrdered By: Gildardo Walton on 12-04-2023 Lymphocytes/100 WBC Auto (Unsp spec) 20.3 % 19-41 [facility] Basophil percentageOrdered B y: Gildardo Walton on 12-04-2023 Basophils/100 WBC (Bld) 0.8 % 0-1 [facility] Chloride [Moles/Vol] 106 mmol/L 98-107 [facility] Cholesterol [Mass/Vol] 133 mg/dL <200 [facility] Comment on above: <200 mg/dL Desirable 200-240 mg/dL Borderline >240 mg/dL High Risk Eosinophils/100 WBC (Bld) 4.3 % 0-5 [facility] Glucose [Mass/Vol] 167 mg/dL 74-106 [facility] Comment on above: Fasting Glucose resu lt greater than or equal to 126 mg/dL suggests DIABETES MELLITUS per A.D.A. criteria. Hemoglobin (Bld) [Mass/Vol] 11.7 g/dL 13.0-16. 5 [facility] Monocytes/100 WBC (Bld) 10.3 % 0-10 [facility] Neutrophils (Bld) [#/Vol] 3.2 10*3/uL 2.0-7.7 [facility] Neutrophils/100 WBC (Bld) 63.9 % 47-70 [facility] Potassium [Moles/Vol] 3.9 mmol/L 3.5-5.1 [facility] Sodium [Moles/Vol] 137 mmol/L 136-145 [facility] Triglyceride [Mass/Vol] 168 mg/dL <199 [facility] Comment on above: The drugs N-Acetylcy steine and Metamizole may falsely depress this assay.Serum Triglycerides Reference Interval Normal <150 mg/dL Borderline high 150 - 199 mg/dL High 200 - 499 mg/dL Very High > or = 500 mg/dL WBC (Bld) [#/Vol] 5.1 10*3/uL 4.4-11.0 [facility] Determination of erythrocyte mean corpuscular volume (MCV)Ordered By: Gildardo Walton on 12-04-2023 MCV (RBC) [Entitic vol] 87.7 fL 80-94 [facility] Erythrocyte distribution wid th ratioOrdered By: Gildardo Walton on 12-04-2023 Erythrocyte distribution width (RBC) [Ratio] 12.5 % 11.6-14.6 [facility] Erythrocyte distribution wid th standard deviationOrdered By: Gildardo Walton on 12-04-2023 Erythrocyte distribution width (RBC) [Entitic vol] 40.1 fL 35.1-43.9 [facility] Hematocrit Auto (Bld) [Volum e fraction]Ordered By: Gildardo Walton on 12-04-2023 Hematocrit (Bld) [Volume fraction] 34.9 % 40-54 [facility] Immature granulocytes/100 WB C Auto (Bld)Ordered By: Gildardo Walton on 12-04-2023 Immature granulocytes/100 WBC (Bld) 0.400 % 0.0-0.9 [facility] Comment on above: IG% - Immature Granu locytes (promyelocytes, myelocytes and metamyelocytes) > 1% indicates that a LEFT SHIFT is Present. Laboratory - Chemistry and C hemistry - challengeOrdered By: Gildardo Walton on 12-04-2023 Cholesterol in HDL [Mass/Vol] 50 mg/dL >40 [facility] Comment on above: The drugs N-Acetylcy steine and Metamizole may falsely depress this assay. Reference Range HDL <40 mg/dL Low HDL Cholesterol HDL >or= 60 mg/dL High HDL Cholesterol Cholesterol in LDL [Mass/Vol] 49 mg/dL 0-130 [facility] CO2 [Moles/Vol] 25.0 mmol/L 21.0-32.0 [facility] Urea nitrogen/Creatinine [Mass ratio] 15.7 mg/mg 10-20 [facility] Laboratory - Hematology and Cell countsOrdered By: Gildardo Walton on 12-04-2023 MCH (RBC) [Entitic mass] 29.4 pg 27.0-32.0 [facility] MCHC (RBC) [Mass/Vol] 33.5 g/dL 32-36 [facility] Nucleated RBC/100 WBC (Bld) [Ratio] 0 % 0-5 [facility] Platelet mean volume (Bld) [Entitic vol] 9.1 fL 6.2-12.0 [facility] Platelets (Bld) [#/Vol] 187 10*3/uL 150-450 [facility] No Panel InformationOrdered By: Gildardo Walton on 12-04-2023 Estimated Creatinine Clearance Calc 73.93 ml/min [facility] Estimated GFR (MDRD) Amer 100 mL/min >60 [facility] Comment on above: GFR Calc Estimated GFR (MDRD) Non-Af Amer 83 mL/min >60 [facility] Comment on above: Non- GFR Calc VLDL Cholesterol 34 mg/dL 5-40 [facility] RBC Auto (Bld) [#/Vol]Ordere d By: Gildardo Walton on 12-04-2023 RBC (Bld) [#/Vol] 3.98 10*6/uL 4.6-6.2 [facility] Serum or plasma calcium jaziel urement (mass/volume)Ordered By: Gildardo Walton on 12-04-2023 Calcium [Mass/Vol] 9.0 mg/dL 8.5-10.1 [facility] Serum or plasma creatinine m easurement (mass/volume)Ordered By: Gildardo Walton on 12-04-2023 Creatinine [Mass/Vol] 0.96 mg/dL 0.70-1.30 [facility] Comment on above: The validity of the calculated GFR & GFRAA in patients over 70 years has not been determined. Clinical correlation is essential. Serum or plasma thyroid stim ulating hormone (TSH) measurement (units/volume)Ordered By: Gildardo Walton on 12-04-2023 TSH Qn 3.38 uIU/mL 0.358-3.74 [facility] Serum or plasma urea nitroge n measurement (mass/volume)Ordered By: Gildardoisabell Walton on 12-04-2023 Urea nitrogen [Mass/Vol] 15 mg/dL 7-18 [facility] Thin prep Papanicolaou smear with manual screeningOrdered By: Martina Cr on 12-04-2023 Thin prep Papanicolaou smear with manual screening 195 mg/dL 74-106 [facility] Comment on above: MANAGEMENT OF PATIEN T CARE PER NURSING PROTOCOL Thin prep Papanicolaou smear with manual screeningOrdered By: Gildardo Walton on 12-04-2023 Thin prep Papanicolaou smear with manual screening 6 5-15 [facility] Absolute lymphocyte countOrd ered By: Jered Huff on 12-03-2023 Lymphocytes Auto (Unsp spec) [#/Vol] 0.90 10*3/uL 0.83-4.51 [facility] Activated partial thrombopla stin time (aPTT) in platelet poor plasma by coagulation aOrdered By: Jered Huff on 12-03-2023 aPTT Coag (PPP) [Time] 27.7 s 24.1-36.2 [facility] Automated lymphocyte count a s percentage of total leukocytesOrdered By: Jered Huff on 12-03-2023 Lymphocytes/100 WBC Auto (Unsp spec) 19.4 % 19-41 [facility] Basophil percentageOrdered B y: Gildardo Walton on 12-03-2023 Basophil percentage 0 SEEN /hpf 0-5 [facility] Basophil percentageOrdered B y: Jered Huff on 12-03-2023 Basophils/100 WBC (Bld) 0.9 % 0-1 [facility] Chloride [Moles/Vol] 101 mmol/L 98-107 [facility] Eosinophils/100 WBC (Bld) 1.9 % 0-5 [facility] Glucose [Mass/Vol] 264 mg/dL 74-106 [facility] Comment on above: Glucose result great er than or equal to 200 mg/dLsuggests DIABETES MELLITUS per A.D.A. criteria. Hemoglobin (Bld) [Mass/Vol] 11.4 g/dL 13.0-16. 5 [facility] Monocytes/100 WBC (Bld) 11.2 % 0-10 [facility] Neutrophils (Bld) [#/Vol] 3.0 10*3/uL 2.0-7.7 [facility] Neutrophils/100 WBC (Bld) 65.7 % 47-70 [facility] Potassium [Moles/Vol] 3.9 mmol/L 3.5-5.1 [facility] Sodium [Moles/Vol] 134 mmol/L 136-145 [facility] WBC (Bld) [#/Vol] 4.6 10*3/uL 4.4-11.0 [facility] Bilirubin Test strip Ql (U)O rdered By: Gildardo Walton on 12-03-2023 Bilirubin Ql (U) Negative Negative [facility] Determination of erythrocyte mean corpuscular volume (MCV)Ordered By: Jered Huff on 12-03-2023 MCV (RBC) [Entitic vol] 86.9 fL 80-94 [facility] Erythrocyte distribution wid th ratioOrdered By: Jered Huff on 12-03-2023 Erythrocyte distribution width (RBC) [Ratio] 12.3 % 11.6-14.6 [facility] Erythrocyte distribution wid th standard deviationOrdered By: Jered Huff on 12-03-2023 Erythrocyte distribution width (RBC) [Entitic vol] 39.1 fL 35.1-43.9 [facility] Hematocrit Auto (Bld) [Volum e fraction]Ordered By: Jered Huff on 12-03-2023 Hematocrit (Bld) [Volume fraction] 33.3 % 40-54 [facility] Immature granulocytes/100 WB C Auto (Bld)Ordered By: Jered Huff on 12-03-2023 Immature granulocytes/100 WBC (Bld) 0.900 % 0.0-0.9 [facility] Comment on above: IG% - Immature Granu locytes (promyelocytes, myelocytes and metamyelocytes) > 1% indicates that a LEFT SHIFT is Present. Ketones Test strip Ql (U)Ord ered By: Gildardo Walton on 12-03-2023 Ketones Ql (U) Negative Negative [facility] Laboratory - Chemistry and C hemistry - challengeOrdered By: Jered Huff on 12-03-2023 CO2 [Moles/Vol] 28.0 mmol/L 21.0-32.0 [facility] Urea nitrogen/Creatinine [Mass ratio] 22.5 mg/mg 10-20 [facility] Laboratory - CoagulationOrde red By: Jered Huff on 12-03-2023 INR Coag (Bld) [Relative time] 1.0 {INR} [facility] PT Coag (PPP) [Time] 13.0 s 11.7-14.9 [facility] Laboratory - Hematology and Cell countsOrdered By: Jered Huff on 12-03-2023 MCH (RBC) [Entitic mass] 29.8 pg 27.0-32.0 [facility] MCHC (RBC) [Mass/Vol] 34.2 g/dL 32-36 [facility] Nucleated RBC/100 WBC (Bld) [Ratio] 0 % 0-5 [facility] Platelet mean volume (Bld) [Entitic vol] 9.2 fL 6.2-12.0 [facility] Platelets (Bld) [#/Vol] 189 10*3/uL 150-450 [facility] Mucus LM Ql (Urine sed)Order ed By: Gildardo Walton on 12-03-2023 Mucus Ql (Urine sed) 0 SEEN /hpf [facility] Nitrite Test strip Ql (U)Ord ered By: Gildardo Walton on 12-03-2023 Nitrite Ql (U) Negative Negative [facility] No Panel InformationOrdered By: Gildardo Walton on 12-03-2023 Troponin I High Sensitivity 7 pg/mL 3.0-78.0 [facility] Comment on above: Please Note: New [place] t Units and Gender Specific Reference Ranges. For more information see Policy Stat Procedure [place] High Sensitivity Troponin (TNIH) and attachments. Urine RBC 0 SEEN /hpf 0-5 [facility] No Panel InformationOrdered By: Jered Huff on 12-03-2023 Troponin I High Sensitivity 6 pg/mL 3.0-78.0 [facility] Comment on above: Please Note: New [place] t Units and Gender Specific Reference Ranges. For more information see Policy Stat Procedure [place] High Sensitivity Troponin (TNIH) and attachments. Estimated GFR (MDRD) Amer 93 mL/min >60 [facility] Comment on above: GFR Calc Estimated GFR (MDRD) Non-Af Amer 77 mL/min >60 [facility] Comment on above: Non- GFR Calc Protein Test strip Ql (U)Ord ered By: Gildardo Walton on 12-03-2023 Protein Ql (U) Negative Negative [facility] RBC Auto (Bld) [#/Vol]Ordere d By: Jered Huff on 12-03-2023 RBC (Bld) [#/Vol] 3.83 10*6/uL 4.6-6.2 [facility] Serum or plasma calcium jaziel urement (mass/volume)Ordered By: Jered Huff on 12-03-2023 Calcium [Mass/Vol] 9.0 mg/dL 8.5-10.1 [facility] Serum or plasma creatinine m easurement (mass/volume)Ordered By: Jered Huff on 12-03-2023 Creatinine [Mass/Vol] 1.02 mg/dL 0.70-1.30 [facility] Comment on above: The validity of the calculated GFR & GFRAA in patients over 70 years has not been determined. Clinical correlation is essential. Serum or plasma urea nitroge n measurement (mass/volume)Ordered By: Jered Huff on 12-03-2023 Urea nitrogen [Mass/Vol] 23 mg/dL 7-18 [facility] Squamous epithelial cells de tection in urine sediment by light microscopyOrdered By: Gildardo Walton on 12-03-2023 Epithelial cells.squamous LM Ql (Urine sed) 0 SEEN /hpf 0-5 [facility] Thin prep Papanicolaou smear with manual screeningOrdered By: Jered Huff on 12-03-2023 Thin prep Papanicolaou smear with manual screening 5 5-15 [facility] Urine blood detectionOrdered By: Gildardo Walton on 12-03-2023 RBC Ql (U) Negative Negative [facility] Urine clarityOrdered By: Carley Walton on 12-03-2023 Clarity (U) Clear Clear [facility] Urine color determinationOrd ered By: Gildardo Walton on 12-03-2023 Color (U) Yellow Yellow [facility] Urine glucose detectionOrder ed By: Gildardo Walton on 12-03-2023 Glucose Ql (U) 50 mg/dl Normal [facility] Urine leukocyte esterase det ection by dipstickOrdered By: Gildardo Walton on 12-03-2023 Leukocyte esterase Test strip Ql (U) Negative Negative [facility] Urine pHOrdered By: Gildardo Walton on 12-03-2023 pH (U) 8.0 [pH] 5.0 - 8.0 [facility] Urine sediment bacteria coun t by microscopy (number/high power field)Ordered By: Gildardo Walton on 12-03-2023 Bacteria LM.HPF (Urine sed) [#/Area] 0 /[HPF] None Seen [facility] Urine specific gravity measu rementOrdered By: Gildardo Walton on 12-03-2023 Specific gravity (U) [Rel density] 1.015 1.002-1.03 0 [facility] Urine urobilinogen measureme ntOrdered By: Gildardo Walton on 12-03-2023 Urobilinogen Ql (U) Normal mg/dl Normal [facility] Absolute lymphocyte countOrd ered By: Jered Huff on 10-23-2023 Lymphocytes Auto (Unsp spec) [#/Vol] 1.04 10*3/uL 0.83-4.51 [facility] Automated lymphocyte count a s percentage of total leukocytesOrdered By: Jered Huff on 10-23-2023 Lymphocytes/100 WBC Auto (Unsp spec) 10.2 % 19-41 [facility] Basophil percentageOrdered B y: Jered Huff on 10-23-2023 Basophils/100 WBC (Bld) 0.7 % 0-1 [facility] Chloride [Moles/Vol] 107 mmol/L 98-107 [facility] Eosinophils/100 WBC (Bld) 3.4 % 0-5 [facility] Glucose [Mass/Vol] 136 mg/dL 74-106 [facility] Comment on above: Fasting Glucose resu lt greater than or equal to 126 mg/dL suggests DIABETES MELLITUS per A.D.A. criteria. Hemoglobin (Bld) [Mass/Vol] 11.9 g/dL 13.0-16. 5 [facility] Monocytes/100 WBC (Bld) 10.0 % 0-10 [facility] Neutrophils (Bld) [#/Vol] 7.7 10*3/uL 2.0-7.7 [facility] Neutrophils/100 WBC (Bld) 75.3 % 47-70 [facility] Potassium [Moles/Vol] 4.8 mmol/L 3.5-5.1 [facility] Sodium [Moles/Vol] 136 mmol/L 136-145 [facility] WBC (Bld) [#/Vol] 10.2 10*3/uL 4.4-11.0 [facility] Determination of erythrocyte mean corpuscular volume (MCV)Ordered By: Jered Huff on 10-23-2023 MCV (RBC) [Entitic vol] 91.7 fL 80-94 [facility] Erythrocyte distribution wid th ratioOrdered By: Jered Huff on 10-23-2023 Erythrocyte distribution width (RBC) [Ratio] 12.8 % 11.6-14.6 [facility] Erythrocyte distribution wid th standard deviationOrdered By: Jered Huff on 10-23-2023 Erythrocyte distribution width (RBC) [Entitic vol] 42.7 fL 35.1-43.9 [facility] Hematocrit Auto (Bld) [Volum e fraction]Ordered By: Jered Huff on 10-23-2023 Hematocrit (Bld) [Volume fraction] 36.6 % 40-54 [facility] Immature granulocytes/100 WB C Auto (Bld)Ordered By: Jered Huff on 10-23-2023 Immature granulocytes/100 WBC (Bld) 0.400 % 0.0-0.9 [facility] Comment on above: IG% - Immature Granu locytes (promyelocytes, myelocytes and metamyelocytes) > 1% indicates that a LEFT SHIFT is Present. Laboratory - Chemistry and C hemistry - challengeOrdered By: Jered Huff on 10-23-2023 CO2 [Moles/Vol] 26.0 mmol/L 21.0-32.0 [facility] Urea nitrogen/Creatinine [Mass ratio] 27.4 mg/mg 10-20 [facility] Laboratory - Hematology and Cell countsOrdered By: Jered Huff on 10-23-2023 MCH (RBC) [Entitic mass] 29.8 pg 27.0-32.0 [facility] MCHC (RBC) [Mass/Vol] 32.5 g/dL 32-36 [facility] Nucleated RBC/100 WBC (Bld) [Ratio] 0 % 0-5 [facility] Platelet mean volume (Bld) [Entitic vol] 9.0 fL 6.2-12.0 [facility] Platelets (Bld) [#/Vol] 229 10*3/uL 150-450 [facility] No Panel InformationOrdered By: Jered Huff on 10-23-2023 Troponin I High Sensitivity 6 pg/mL 3.0-78.0 [facility] Comment on above: Please Note: New [place] t Units and Gender Specific Reference Ranges. For more information see Policy Stat Procedure [place] High Sensitivity Troponin (TNIH) and attachments. Estimated Creatinine Clearance Calc 73.16 ml/min [facility] Estimated GFR (MDRD) Amer 89 mL/min >60 [facility] Comment on above: GFR Calc Estimated GFR (MDRD) Non-Af Amer 73 mL/min >60 [facility] Comment on above: Non- GFR Calc RBC Auto (Bld) [#/Vol]Ordere d By: Jered Huff on 10-23-2023 RBC (Bld) [#/Vol] 3.99 10*6/uL 4.6-6.2 [facility] Serum or plasma calcium jaziel urement (mass/volume)Ordered By: Jered Huff on 10-23-2023 Calcium [Mass/Vol] 9.9 mg/dL 8.5-10.1 [facility] Serum or plasma creatinine m easurement (mass/volume)Ordered By: Jered Huff on 10-23-2023 Creatinine [Mass/Vol] 1.06 mg/dL 0.70-1.30 [facility] Comment on above: The validity of the calculated GFR & GFRAA in patients over 70 years has not been determined. Clinical correlation is essential. Serum or plasma urea nitroge n measurement (mass/volume)Ordered By: Jered Huff on 10-23-2023 Urea nitrogen [Mass/Vol] 29 mg/dL 7-18 [facility] Thin prep Papanicolaou smear with manual screeningOrdered By: Jered Huff on 10-23-2023 Thin prep Papanicolaou smear with manual screening 3 5-15 [facility] Absolute lymphocyte countOrd ered By: Ivy Toribio on 10-15-2023 Lymphocytes Auto (Unsp spec) [#/Vol] 0.91 10*3/uL 0.83-4.51 [facility] Automated lymphocyte count a s percentage of total leukocytesOrdered By: Ivy Toribio on 10-15-2023 Lymphocytes/100 WBC Auto (Unsp spec) 18.5 % 19-41 [facility] Basophil percentageOrdered B y: Ivy Toribio on 10-15-2023 Basophils/100 WBC (Bld) 0.6 % 0-1 [facility] Chloride [Moles/Vol] 103 mmol/L 98-107 [facility] Eosinophils/100 WBC (Bld) 5.1 % 0-5 [facility] Glucose [Mass/Vol] 265 mg/dL 74-106 [facility] Comment on above: Glucose result great er than or equal to 200 mg/dLsuggests DIABETES MELLITUS per A.D.A. criteria. Hemoglobin (Bld) [Mass/Vol] 11.7 g/dL 13.0-16. 5 [facility] Monocytes/100 WBC (Bld) 10.1 % 0-10 [facility] Neutrophils (Bld) [#/Vol] 3.2 10*3/uL 2.0-7.7 [facility] Neutrophils/100 WBC (Bld) 65.3 % 47-70 [facility] Potassium [Moles/Vol] 4.6 mmol/L 3.5-5.1 [facility] Sodium [Moles/Vol] 137 mmol/L 136-145 [facility] WBC (Bld) [#/Vol] 4.9 10*3/uL 4.4-11.0 [facility] Determination of erythrocyte mean corpuscular volume (MCV)Ordered By: Ivy Toribio on 10-15-2023 MCV (RBC) [Entitic vol] 90.9 fL 80-94 [facility] Erythrocyte distribution wid th ratioOrdered By: Ivy Toribio on 10-15-2023 Erythrocyte distribution width (RBC) [Ratio] 13.1 % 11.6-14.6 [facility] Erythrocyte distribution wid th standard deviationOrdered By: Ivy Toribio on 10-15-2023 Erythrocyte distribution width (RBC) [Entitic vol] 43.1 fL 35.1-43.9 [facility] Hematocrit Auto (Bld) [Volum e fraction]Ordered By: Ivy Toribio on 10-15-2023 Hematocrit (Bld) [Volume fraction] 35.9 % 40-54 [facility] Immature granulocytes/100 WB C Auto (Bld)Ordered By: Ivy Toribio on 10-15-2023 Immature granulocytes/100 WBC (Bld) 0.400 % 0.0-0.9 [facility] Comment on above: IG% - Immature Granu locytes (promyelocytes, myelocytes and metamyelocytes) > 1% indicates that a LEFT SHIFT is Present. Laboratory - Chemistry and C hemistry - challengeOrdered By: Ivy Toribio on 10-15-2023 CO2 [Moles/Vol] 24.0 mmol/L 21.0-32.0 [facility] Urea nitrogen/Creatinine [Mass ratio] 17.8 mg/mg 10-20 [facility] Laboratory - Hematology and Cell countsOrdered By: Ivy Toribio on 10-15-2023 MCH (RBC) [Entitic mass] 29.6 pg 27.0-32.0 [facility] MCHC (RBC) [Mass/Vol] 32.6 g/dL 32-36 [facility] Nucleated RBC/100 WBC (Bld) [Ratio] 0 % 0-5 [facility] Platelet mean volume (Bld) [Entitic vol] 9.5 fL 6.2-12.0 [facility] Platelets (Bld) [#/Vol] 197 10*3/uL 150-450 [facility] No Panel InformationOrdered By: Ivy Toribio on 10-15-2023 Troponin I High Sensitivity 101 pg/mL 3.0-78.0 [facility] Comment on above: Please Note: New [place] t Units and Gender Specific Reference Ranges. For more information see Policy Stat Procedure [facility] High Sensitivity Troponin (TNIH) and attachments. D-Dimer Quantitative (PE/DVT) 0.56 FEU/ug/m 0.27-0.49 [facility] Comment on above: D-Dimer ELEVATED (>0 .49): Additional studies and clinicalassessments are indicated to conclude diagnosis of:Deep Vein Thrombosis (DVT) or Pulmonary Embolism (PE) Estimated Creatinine Clearance Calc 71.85 ml/min [facility] Estimated GFR (MDRD) Amer 88 mL/min >60 [facility] Comment on above: GFR Calc Estimated GFR (MDRD) Non-Af Amer 73 mL/min >60 [facility] Comment on above: Non- GFR Calc RBC Auto (Bld) [#/Vol]Ordere d By: Ivy Toribio on 10-15-2023 RBC (Bld) [#/Vol] 3.95 10*6/uL 4.6-6.2 [facility] Serum or plasma calcium jaziel urement (mass/volume)Ordered By: Ivy Toribio on 10-15-2023 Calcium [Mass/Vol] 9.3 mg/dL 8.5-10.1 [facility] Serum or plasma creatinine m easurement (mass/volume)Ordered By: Ivy Toribio on 10-15-2023 Creatinine [Mass/Vol] 1.07 mg/dL 0.70-1.30 [facility] Comment on above: The validity of the calculated GFR & GFRAA in patients over 70 years has not been determined. Clinical correlation is essential. Serum or plasma urea nitroge n measurement (mass/volume)Ordered By: Ivy Toribio on 10-15-2023 Urea nitrogen [Mass/Vol] 19 mg/dL 7-18 [facility] Thin prep Papanicolaou smear with manual screeningOrdered By: Ivy Toribio on 10-15-2023 Thin prep Papanicolaou smear with manual screening 10 5-15 [facility] Basophil percentageOrdered B y: Ez Hurst on 10-11-2023 Bilirubin [Mass/Vol] 0.50 mg/dL 0.20-1.00 [facility] Comment on above: For patients on eltr ombopag therapy, use of Dimension [place] TBIL is not recommended. Chloride [Moles/Vol] 108 mmol/L 98-107 [facility] Glucose [Mass/Vol] 144 mg/dL 74-106 [facility] Comment on above: Fasting Glucose resu lt greater than or equal to 126 mg/dL suggests DIABETES MELLITUS per A.D.A. criteria. Hemoglobin (Bld) [Mass/Vol] 10.7 g/dL 13.0-16. 5 [facility] Potassium [Moles/Vol] 3.7 mmol/L 3.5-5.1 [facility] Protein [Mass/Vol] 6.8 g/dL 6.4-8.2 [facility] Sodium [Moles/Vol] 139 mmol/L 136-145 [facility] WBC (Bld) [#/Vol] 7.8 10*3/uL 4.4-11.0 [facility] Determination of erythrocyte mean corpuscular volume (MCV)Ordered By: Ez Hurst on 10-11-2023 MCV (RBC) [Entitic vol] 91.1 fL 80-94 [facility] Erythrocyte distribution wid th ratioOrdered By: Ez Hurst on 10-11-2023 Erythrocyte distribution width (RBC) [Ratio] 13.3 % 11.6-14.6 [facility] Erythrocyte distribution wid th standard deviationOrdered By: Ez Hurst on 10-11-2023 Erythrocyte distribution width (RBC) [Entitic vol] 45.1 fL 35.1-43.9 [facility] Hematocrit Auto (Bld) [Volum e fraction]Ordered By: Ez Hurst on 10-11-2023 Hematocrit (Bld) [Volume fraction] 32.6 % 40-54 [facility] Laboratory - Chemistry and C hemistry - challengeOrdered By: zE Hurst on 10-11-2023 Albumin/Globulin [Mass ratio] 1.3 {ratio} 0.9-2.4 [facility] ALP [Catalytic activity/Vol] 79 U/L 45-117 [facility] ALT [Catalytic activity/Vol] 25 U/L 16-61 [facility] CO2 [Moles/Vol] 23.0 mmol/L 21.0-32.0 [facility] Globulin (S) [Mass/Vol] 2.9 g/dL 2.2-4.2 [facility] Urea nitrogen/Creatinine [Mass ratio] 20.1 mg/mg 10-20 [facility] Laboratory - Hematology and Cell countsOrdered By: Ez Hurst on 10-11-2023 MCH (RBC) [Entitic mass] 29.9 pg 27.0-32.0 [facility] MCHC (RBC) [Mass/Vol] 32.8 g/dL 32-36 [facility] Platelet mean volume (Bld) [Entitic vol] 9.4 fL 6.2-12.0 [facility] Platelets (Bld) [#/Vol] 195 10*3/uL 150-450 [facility] No Panel InformationOrdered By: Ez Hurst on 10-11-2023 Estimated Creatinine Clearance Calc 96.49 ml/min [facility] Estimated GFR (MDRD) Amer 123 mL/min >60 [facility] Comment on above: GFR Calc Estimated GFR (MDRD) Non-Af Amer 102 mL/min >60 [facility] Comment on above: Non- GFR Calc RBC Auto (Bld) [#/Vol]Ordere d By: Ez Hurst on 10-11-2023 RBC (Bld) [#/Vol] 3.58 10*6/uL 4.6-6.2 [facility] Serum or plasma calcium jaziel urement (mass/volume)Ordered By: Ez Hurst on 10-11-2023 Calcium [Mass/Vol] 8.7 mg/dL 8.5-10.1 [facility] Serum or plasma creatinine m easurement (mass/volume)Ordered By: Ez Hurst on 10-11-2023 Creatinine [Mass/Vol] 0.80 mg/dL 0.70-1.30 [facility] Comment on above: The validity of the calculated GFR & GFRAA in patients over 70 years has not been determined. Clinical correlation is essential. Serum or plasma urea nitroge n measurement (mass/volume)Ordered By: Ez Hurst on 10-11-2023 Urea nitrogen [Mass/Vol] 16 mg/dL 7-18 [facility] Thin prep Papanicolaou smear with manual screeningOrdered By: Foster Mayberry on 10-11-2023 Thin prep Papanicolaou smear with manual screening 172 mg/dL 74-106 [facility] Comment on above: MANAGEMENT OF PATIEN T CARE PER NURSING PROTOCOL Thin prep Papanicolaou smear with manual screeningOrdered By: Ez Hurst on 10-11-2023 Thin prep Papanicolaou smear with manual screening 3.9 g/dL 3.2-5.0 [facility] Thin prep Papanicolaou smear with manual screening 15 U/L 15-37 [facility] Thin prep Papanicolaou smear with manual screening 8 5-15 [facility] Absolute lymphocyte countOrd ered By: Gildardo Walton on 10-10-2023 Lymphocytes Auto (Unsp spec) [#/Vol] 1.27 10*3/uL 0.83-4.51 [facility] Activated partial thrombopla stin time (aPTT) in platelet poor plasma by coagulation aOrdered By: Gildardo Walton on 10-10-2023 aPTT Coag (PPP) [Time] 53.1 s 24.1-36.2 [facility] Automated lymphocyte count a s percentage of total leukocytesOrdered By: Gildardo Walton on 10-10-2023 Lymphocytes/100 WBC Auto (Unsp spec) 24.7 % 19-41 [facility] Basophil percentageOrdered B y: Gildardo Walton on 10-10-2023 Basophils/100 WBC (Bld) 0.8 % 0-1 [facility] Cholesterol [Mass/Vol] 129 mg/dL <200 [facility] Comment on above: <200 mg/dL Desirable 200-240 mg/dL Borderline >240 mg/dL High Risk Eosinophils/100 WBC (Bld) 3.9 % 0-5 [facility] Monocytes/100 WBC (Bld) 8.2 % 0-10 [facility] Neutrophils (Bld) [#/Vol] 3.2 10*3/uL 2.0-7.7 [facility] Neutrophils/100 WBC (Bld) 61.8 % 47-70 [facility] Triglyceride [Mass/Vol] 86 mg/dL <199 [facility] Comment on above: The drugs N-Acetylcy steine and Metamizole may falsely depress this assay.Serum Triglycerides Reference Interval Normal <150 mg/dL Borderline high 150 - 199 mg/dL High 200 - 499 mg/dL Very High > or = 500 mg/dL Immature granulocytes/100 WB C Auto (Bld)Ordered By: Gildardo Walton on 10-10-2023 Immature granulocytes/100 WBC (Bld) 0.600 % 0.0-0.9 [facility] Comment on above: IG% - Immature Granu locytes (promyelocytes, myelocytes and metamyelocytes) > 1% indicates that a LEFT SHIFT is Present. Laboratory - Chemistry and C hemistry - challengeOrdered By: Gildardo Walton on 10-10-2023 Cholesterol in HDL [Mass/Vol] 60 mg/dL >40 [facility] Comment on above: The drugs N-Acetylcy steine and Metamizole may falsely depress this assay. Reference Range HDL <40 mg/dL Low HDL Cholesterol HDL >or= 60 mg/dL High HDL Cholesterol Cholesterol in LDL [Mass/Vol] 52 mg/dL 0-130 [facility] Natriuretic peptide B (Bld) [Mass/Vol] 41.9 pg/mL 0-100 [facility] Laboratory - Hematology and Cell countsOrdered By: Gildardo Walton on 10-10-2023 Nucleated RBC/100 WBC (Bld) [Ratio] 0 % 0-5 [facility] No Panel InformationOrdered By: Foster Mayberry on 10-10-2023 Activated Clotting Time 266 sec 74-137 [facility] No Panel InformationOrdered By: Gildardo Walton on 10-10-2023 VLDL Cholesterol 17 mg/dL 5-40 [facility] Troponin I High Sensitivity 21 pg/mL 3.0-78.0 [facility] Comment on above: Please Note: New [place] t Units and Gender Specific Reference Ranges. For more information see Policy Stat Procedure [place] High Sensitivity Troponin (TNIH) and attachments. Serum or plasma thyroid stim ulating hormone (TSH) measurement (units/volume)Ordered By: Gildardo Walton on 10-10-2023 TSH Qn 3.00 uIU/mL 0.358-3.74 [facility] Whole blood hemoglobin A1c/t otal hemoglobin ratio (mass fraction)Ordered By: Foster Mayberry on 10-10-2023 HbA1c (Bld) [Mass fraction] 7.3 % 3.8-5.6 [facility] Comment on above: Normal < 5.7 % Predi abetic 5.7 - 6.4 % Diabetic >or= 6.5 % Please note range changes. Absolute lymphocyte countOrd ered By: Nicko Rabago on 10-09-2023 Lymphocytes Auto (Unsp spec) [#/Vol] 1.81 10*3/uL 0.83-4.51 [facility] Activated partial thrombopla stin time (aPTT) in platelet poor plasma by coagulation aOrdered By: Nciko Rabago on 10-09-2023 aPTT Coag (PPP) [Time] 27.0 s 24.1-36.2 [facility] Automated lymphocyte count a s percentage of total leukocytesOrdered By: Nicko Rabago on 10-09-2023 Lymphocytes/100 WBC Auto (Unsp spec) 25.4 % 19-41 [facility] Basophil percentageOrdered B y: Nicko Rabago on 10-09-2023 Basophils/100 WBC (Bld) 0.7 % 0-1 [facility] Chloride [Moles/Vol] 105 mmol/L 98-[facility] E[facility] WBC (Bld) 2.7 % 0-5 [facility] Glucose [Mass/Vol] 285 mg/dL 74-106 [facility] Comment on above: Glucose result great er than or equal to 200 mg/dLsuggests DIABETES MELLITUS per A.D.A. criteria. Hemoglobin (Bld) [Mass/Vol] 11.5 g/dL 13.0-16. 5 [facility] Monocytes/100 WBC (Bld) 7.7 % 0-10 [facility] Neutrophils (Bld) [#/Vol] 4.5 10*3/uL 2.0-7.7 [facility] Neutrophils/100 WBC (Bld) 63.1 % 47-70 [facility] Potassium [Moles/Vol] 4.4 mmol/L 3.5-5.1 [facility] Sodium [Moles/Vol] 138 mmol/L 136-145 [facility] WBC (Bld) [#/Vol] 7.1 10*3/uL 4.4-11.0 [facility] Determination of erythrocyte mean corpuscular volume (MCV)Ordered By: Nicko Rabago on 10-09-2023 MCV (RBC) [Entitic vol] 90.4 fL 80-94 [facility] Erythrocyte distribution wid th ratioOrdered By: Nicko Rabago on 10-09-2023 Erythrocyte distribution width (RBC) [Ratio] 13.0 % 11.6-14.6 [facility] Erythrocyte distribution wid th standard deviationOrdered By: Nicko Rabago on 10-09-2023 Erythrocyte distribution width (RBC) [Entitic vol] 42.6 fL 35.1-43.9 [facility] Hematocrit Auto (Bld) [Volum e fraction]Ordered By: Nicko Rabago on 10-09-2023 Hematocrit (Bld) [Volume fraction] 35.0 % 40-54 [facility] Immature granulocytes/100 WB C Auto (Bld)Ordered By: Nicko Rabago on 10-09-2023 Immature granulocytes/100 WBC (Bld) 0.400 % 0.0-0.9 [facility] Comment on above: IG% - Immature Granu locytes (promyelocytes, myelocytes and metamyelocytes) > 1% indicates that a LEFT SHIFT is Present. Laboratory - Chemistry and C hemistry - challengeOrdered By: Nicko Rabago on 10-09-2023 CO2 [Moles/Vol] 26.0 mmol/L 21.0-32.0 [facility] Magnesium [Mass/Vol] 2.1 mg/dL 1.6-2.6 [facility] Urea nitrogen/Creatinine [Mass ratio] 25.6 mg/mg 10-20 [facility] Laboratory - CoagulationOrde red By: Nicko Rabago on 10-09-2023 INR Coag (Bld) [Relative time] 0.9 {INR} [facility] PT Coag (PPP) [Time] 12.4 s 11.7-14.9 [facility] Laboratory - Hematology and Cell countsOrdered By: Nicko Rabago on 10-09-2023 MCH (RBC) [Entitic mass] 29.7 pg 27.0-32.0 [facility] MCHC (RBC) [Mass/Vol] 32.9 g/dL 32-36 [facility] Nucleated RBC/100 WBC (Bld) [Ratio] 0 % 0-5 [facility] Platelet mean volume (Bld) [Entitic vol] 9.5 fL 6.2-12.0 [facility] Platelets (Bld) [#/Vol] 210 10*3/uL 150-450 [facility] No Panel InformationOrdered By: Nicko Rabago on 10-09-2023 Troponin I High Sensitivity 13 pg/mL 3.0-78.0 [facility] Comment on above: Please Note: New Yajaira t Units and Gender Specific Reference Ranges. For more information see Policy Stat Procedure Shirley High Sensitivity Troponin (TNIH) and attachments. Estimated Creatinine Clearance Calc 70.42 ml/min [facility] Estimated GFR (MDRD) Amer 76 mL/min >60 [facility] Comment on above: GFR Calc Estimated GFR (MDRD) Non-Af Amer 63 mL/min >60 [facility] Comment on above: Non- GFR Calc RBC Auto (Bld) [#/Vol]Ordere d By: Nicko Rabago on 10-09-2023 RBC (Bld) [#/Vol] 3.87 10*6/uL 4.6-6.2 [facility] Serum or plasma calcium jaziel urement (mass/volume)Ordered By: Nicko Rabago on 10-09-2023 Calcium [Mass/Vol] 8.6 mg/dL 8.5-10.1 [facility] Serum or plasma creatinine m easurement (mass/volume)Ordered By: Nicko Rabago on 10-09-2023 Creatinine [Mass/Vol] 1.21 mg/dL 0.70-1.30 [facility] Comment on above: The validity of the calculated GFR & GFRAA in patients over 70 years has not been determined. Clinical correlation is essential. Serum or plasma urea nitroge n measurement (mass/volume)Ordered By: Nicko Rabago on 10-09-2023 Urea nitrogen [Mass/Vol] 31 mg/dL 7-18 [facility] Thin prep Papanicolaou smear with manual screeningOrdered By: Nicko Rabago on 10-09-2023 Thin prep Papanicolaou smear with manual screening 7 5-15 [facility] CBC W Auto Differential pane l (Bld)on 11-28-2022 Basophils (Bld) [#/Vol] 0.06 10*3/uL <0.11 k/uL [facility] Basophils/100 WBC (Bld) 1.0 % [facility] Differential cell count method Nom (Bld) Auto [facility] Eosinophils (Bld) [#/Vol] 0.16 10*3/uL <0.46 k/ uL [facility] Eosinophils/100 WBC (Bld) 2.6 % [facility] Erythrocyte distribution width (RBC) [Ratio] 13.3 % 11.5 - 15.0 % [facility] Hematocrit (Bld) [Volume fraction] 36.6 % Low 39.0 - 51.0 % [facility] Hemoglobin (Bld) [Mass/Vol] 12.2 g/dL Low 13.0 - 17.0 g/dL [facility] Immature granulocytes (Bld) [#/Vol] <0.10 k/uL [facility] Immature granulocytes/100 WBC (Bld) 0.3 % [facility] Lymphocytes (Bld) [#/Vol] 1.01 10*3/uL 1. 00 - 4.00 k/uL [facility] Lymphocytes/100 WBC (Bld) 16.3 % [facility] MCH (RBC) [Entitic mass] 29.5 pg 26. 0 - 34.0 pg [facility] MCHC (RBC) [Mass/Vol] 33.3 g/dL 30.5 - 36.0 g/dL [facility] MCV (RBC) [Entitic vol] 88.6 fL 80.0 - 100.0 fL [facility] Monocytes (Bld) [#/Vol] 0.50 10*3/uL <0.87 k/uL [facility] Monocytes/100 WBC (Bld) 8.1 % [facility]ils (Bld[facility] [#/Vol] 4.46 10*3/uL 1. 45 - 7.50 k/uL [facility] Neutrophils/100 WBC (Bld) 71.7 % [facility] Nucleated RBC (Bld) [#/Vol] <0.01 k/ uL [facility] Nucleated RBC/100 WBC (Bld) [Ratio] 0.0 /100 WBC [facility] Platelet mean volume (Bld) [Entitic vol] 10.3 fL 9.0 - 12.7 fL [facility] Platelets (Bld) [#/Vol] 189 10*3/uL 150 - 400 k/uL [facility] RBC (Bld) [#/Vol] 4.13 10*6/uL Low 4.20 - 6.00 m/uL [facility] WBC (Bld) [#/Vol] 6.21 10*3/uL 3.70 - 11.00 k/uL [facility] Comprehensive metabolic 2000 panelon 11-28-2022 Albumin [Mass/Vol] 4.7 g/dL 3.9 - 4.9 g/dL [facility] ALP [Catalytic activity/Vol] 129 U/L High 38 - 113 U/L [facility] ALT [Catalytic activity/Vol] 17 U/L 10 - 54 U/L [facility] Anion gap [Moles/Vol] 10 mmol/L 9 - 18 mmol/L [facility] AST [Catalytic activity/Vol] 18 U/L 14 - 40 U/L [facility] Bilirubin [Mass/Vol] 0.4 mg/dL 0.2 - 1 .3 mg/dL [facility] Calcium [Mass/Vol] 9.6 mg/dL 8.5 - 10. 2 mg/dL [facility] Chloride [Moles/Vol] 102 mmol/L 97 - 10 5 mmol/L [facility] CO2 [Moles/Vol] 26 mmol/L 22 - 30 mmol/L [facility] Creatinine [Mass/Vol] 0.80 mg/dL 0.73 - 1.22 mg/dL [facility] Estimated Glomerular Filtration Rate 96 mL/min/1.73m >=60 mL/min/1.7 3m [facility] Glucose [Mass/Vol] 200 mg/dL High 74 - 99 mg/dL [facility] Potassium [Moles/Vol] 4.3 mmol/L 3.7 - 5.1 mmol/L [facility] Protein [Mass/Vol] 7.6 g/dL 6.3 - 8.0 g/dL [facility] Sodium [Moles/Vol] 138 mmol/L 136 - 144 mmol/L [facility] Urea nitrogen [Mass/Vol] 10 mg/dL 9 - 24 mg/dL [facility] LIPID PANEL, NONFASTINGon Cholesterol [Mass/Vol] 123 mg/dL <200 mg/dL Cl [facility] HDL Cholesterol, Nonfasting 59 mg/dL >39 mg/d L [facility] LDL Cholesterol, Nonfasting 52 mg/dL <100 mg/ dL [facility] LDL/HDL Ratio, Nonfasting 0.88 mg/dL <2 .54 mg/dL [facility] Non HDL Cholesterol, Nonfasting 64 mg/dL <130 mg/dL [facility] Total Chol/HDL Ratio, Nonfasting 2.08 mg/dL <5.10 mg/dL [facility] Triglycerides, Nonfasting 59 mg/dL <150 mg/dL [facility] VLDL Cholesterol, Nonfasting 12 mg/dL <30 mg/ dL [facility] PSA/PROSTSPECAG DIAGon 11-28 Prostate specific Ag [Mass/Vol] 3.86 ng/mL High <2.60 ng/mL [facility] Urinalysis complete panel (U )on 11-28-2022 Bilirubin Ql (U) Negative Negative [facility] Clarity (Unsp spec) Clear Clear [facility] Color (U) Colorless Yellow [facility] Glucose Test strip (U) [Mass/Vol] 2+ Abnormal Trace, Negative [facility] Hemoglobin Ql (U) Negative Negative, Trace [facility] Hyaline casts (Urine sed) [#/Area] 1-3 /LPF Abnormal 0 /LPF [facility] Ketones Ql (U) Negative Trace, Negative [facility] Leukocyte esterase Test strip Ql (U) Negative Negative, 25 Gordy/uL [facility] Nitrite Ql (U) Negative Negative [facility] pH (U) 6.0 [pH] 5.0 - 8.0 [facility] Protein (U) [Mass/Vol] Negative Trace , Negative [facility] RBC LM.HPF (Urine sed) [#/Area] 0-3 /HPF 0-3 /HPF [facility] Specific gravity (U) [Rel density] 1.008 1.005 - 1.030 [facility] Urobilinogen Ql (U) Negative Negative [facility] WBC LM.HPF (Urine sed) [#/Area] 0-5 /HPF 0-5 /HPF [facility] ANES POSTPROC EVALon 023 ANES POSTPROC EVAL HNO ID: [id number] Author: Hany Nina MD Service: Anesthesiology Author Type: Anesthesiologist Type: Anesthesia Postprocedure Evaluation Filed: 10/14/2022 12:01 PM Note Text: POST ANESTHESIA EVALUATION NOTE : 1955 Procedure Summary Date: 10/14/22 Room / Location: [facility] Endoscopy Anesthesia Start: 1117 Anesthesia Stop: 1150 Procedures: EGD DIAGNOSTIC COLONOSCOPY DIAGNOSTIC Diagnosis: Anemia, unspecified type (Iron deficiency anemia) Scheduled Providers: Brian Santaigo MD; Fernando Blanc APRN.VEHICLE FARE COLLECTOR; Hany Nina MD Responsible Provider: Hany Nina MD Anesthesia Type: MAC ASA Status: 3 [...] care. Anesthesia Observations No Documentation SIGNATURE: Hany Nina MD PATIENT NAME: Michael Bates DATE: October 14, 2022 TIME: 12:01 PM CSN: [id number] Normal [facility] ANES PRE-OPon 10-14-2022 ANES PRE-OP HNO ID: [id number] Author: Hany Nina MD Service: Anesthesiology Author Type: Anesthesiologist Type: Anesthesia Preprocedure Evaluation Filed: 10/14/2022 10:53 AM Note Text: ANESTHESIOLOGY DAY OF SURGERY NOTE : 1955 Procedure Information Date/Time: 10/14/22 1215 Scheduled providers: Brian Santiago MD; Fernando Blanc APRN.CRNA; Hany Nina MD Procedures: EGD DIAGNOSTIC COLONOSCOPY DIAGNOSTIC Location: [facility] Endoscopy Estimated body mass index is 24.97 [...] tablet by mouth once daily. Managed by [facility] - omega-3 fatty acids 1,000 [...] within 48 hours of Surgery/Procedure. SIGNATURE: Hany Nina MD PATIENT NAME: Michael Bates DATE: October 14, 2022 TIME: 10:53 AM CSN: [id number] (more content not included)... Normal [facility] COLONOSCOPY DIAGNOSTICon [facility] Colonoscopyon 10-14-2022 Colonoscopy [facility] Gastrointestinal Endoscopy Patient Name: Michael Bates Procedure Date: 10/14/2022 11:32 AM Date of : 1955 Admit Type: Outpatient Age: 67 Room: [facility] Gender: Male Note Status: Finalized Attending MD: Brian Santiago MD Procedure: Colonoscopy Indications: Iron deficiency anemia Providers: Brian Santiago MD Patient Profile: This is a 67 year old male. Refer to note in patient chart for documentation of history and physical. Last Colonoscopy: date unknown. Unable to locate last colonoscopy report. Referring Physician: Brian Santiago MD (Referring MD) Medicines: Monitored Anesthesia [...] by the physician, the nurse and the virtual classroom manager in the procedure room. Mental Status Examination: [...] screening purposes. Procedure Code(s): --- Professional --- 61121, Colonoscopy, flexible; diagnostic, including collection of specimen(s) by brushing or washing, when performed (separate procedure) CPT copyright 2020 [employer]. All rights reserved. The codes documented in this report are preliminary and upon software developer review may be revised to meet current compliance requirements. Attending Participation: I was present and participated during the entire procedure, including non-miles portions, and during the administration and monitoring of Moderate Sedation. Scope In: 11:34:18 AM Scope Out: 11:48:28 AM MD Brian Gillespie MD 10/14/2022 12:17:10 PM This report has been signed electronically by rBian Santiago MD Number of Addenda: 0 Note Initiated On: 10/14/2022 11:32 AM Estimated Blood Loss: Estimated blood loss: none. Normal [facility] EGD DIAGNOSTICon 10-14-2022 [facility] GLUCOSE, BLOOD (POC)on 10-14 Glucose [Mass/Vol] 157 mg/dL Abnormal 74 - 99 mg/dL [facility] Glucose [Mass/Vol] 179 mg/dL Abnormal 74 - 99 mg/dL [facility] HISTORY PHYSICALon HISTORY PHYSICAL HNO ID: [id number] Author: Brian Santiago MD Service: General Surgery Author Type: [...] Date 2D ECHO (EXEP) 01/16/2017 EF=60%, 1+ CA and TI CATARACT EXTRACTION HX Left 10/2019 [...] tablets by mouth (more content not included)... [facility] SURGICAL PATHOLOGYon 023 ADDENDUM 1: [facility] Comment on above: Order Comment: Walter sexton Type: TISSUE SPECIMEN Ordering Facility: [facility] Address: [address] [place] [phone] Result Comment: Adde ndum is issued to reflect the result of immunohistochemical stain: - Immunostain for H. pylori is negative in part A. Addendum electronically signed by Griffin Falk MD, PhD on 10/18/2022 at 7:45 PM Performed By: #### S #### [facility] CLIA [id number] [address] [facility] [address] [address] [place] CASE REPORT [facility] Comment on above: Order Comment: Speci men Type: TISSUE SPECIMEN Ordering Facility: [facility] Address: [address] [place] [phone] Result Comment: Surg [facility] Pathology Report Case: [id number] Authorizing Provider: Brian Santiago MD Collected: 10/14/2022 11:26 AM Ordering Location: [facility] Endoscopy Received: 10/14/2022 12:19 PM Pathologist: Griffin Falk MD, PhD Specimens: A) - ANTRUM (STOMACH) BIOPSY B) - ESOPHAGUS LOWER BIOPSY, Esophagus Bx @ 38cm C) - ESOPHAGUS MID BIOPSY, Esophagus Bx @ 30cm D) - ESOPHAGUS PROXIMAL BIOPSY, Esophagus Bx @ 25cm Performed By: #### S #### [facility] CLIA [id number] [address] [place] [address] FINAL DIAGNOSIS Normal [facility] Comment on above: Order Comment: Nuhai carlie Type: TISSUE SPECIMEN Ordering Facility: [facility] Address: [address] [place] [address] Result Comment: A. A ntrum, biopsy: - [...] reactive change. Performed By: #### S #### [facility] CLIA [id number] [address] [place] [address] FINAL PERFORMING LAB Normal [facility] Comment on above: Order Comment: Nuhai carlie Type: TISSUE SPECIMEN Ordering Facility: [facility] Address: [address] [place] [address] Result Comment: Diag nostic interpretation performed at [facility], [address] [place], [place] [id number] CLIA# [id number] [employer] Head: Olayinka Paz M.D. Performed By: #### S #### [facility] CLIA [id number] [address] [place] [address] [place] GROSS DESCRIPTION Normal [facility] Comment on above: Order Comment: Speci men Type: TISSUE SPECIMEN Ordering Facility: [facility] Address: [address] [phone] Result Comment: A. A NTRUM (STOMACH) BIOPSY [...] in one cassette. Gross examination performed at [facility], [address] [place] [address] JT 10/14/2022 8:25 PM Performed By: #### S #### [facility] CLIA [id number] [address] [place] [address] [place] Upper GI endoscopyon 023 Upper GI endoscopy [facility] Gastrointestinal Endoscopy Patient Name: Michael Bates Procedure Date: 10/14/2022 11:02 AM Date of : 1955 Admit Type: Outpatient Age: 67 Room: [facility] Gender: Male Note Status: Finalized Attending MD: Brian Santiago MD Procedure: Upper GI endoscopy Indications: Iron deficiency anemia Providers: Brian Santiago MD Patient Profile: This is a 67 year old male. Refer to note in patient chart for documentation of history and physical. Referring Physician: Brian Santiago MD (Referring MD) Medicines: Monitored Anesthesia [...] by the physician, the nurse and the virtual classroom manager in the procedure room. Prophylactic Antibiotics: The [...] 1 week. Procedure Code(s): --- Professional --- 19301, Esophagogastroduodenos copy, flexible, transoral; with biopsy, single or multiple CPT copyright 2020 [employer]. All rights reserved. The codes documented in this report are preliminary and upon software developer review may be revised to meet current compliance requirements. Attending Participation: I personally performed the entire procedure. Scope In: 11:24:01 AM Scope Out: 11:32:13 AM MD Brian Gillespie MD 10/14/2022 11:56:49 AM This report has been signed electronically by Brian Santiago MD Number of Addenda: 0 Note Initiated On: 10/14/2022 11:02 AM Estimated Blood Loss: Estimated blood loss: none. Normal [facility] XR FOOT GENERAL 3V AP/LAT/OB L LEFTon 09-23-2022 [facility] XR Foot - left AP and Latera l and obliqueon 09-23-2022 IMPRESSION: No radiographic evidence of acute osseous injury Machine Filler Shredder[facility] Transcribe Date/Time: Sep 23 2022 1:46P Dictated by : PHYLLIS TORRES MD This examination was interpreted and the report reviewed and electronically signed by: PHYLLIS TORRES MD on Sep 23 2022 1:55PM [facility] DIVISION OF RADIOLOGY * * *Final Report* [...] of the hindfoot. DIVISION OF RADIOLOGY Provider, Michelle Sams - 09/23/2022 * * *Final Report* * [...] No radiographic evidence of acute osseous injury Machine Filler Shredder: [facility] Transcribe Date/Time: Sep 23 2022 1:46P Dictated by : PHYLLIS TORRES MD This examination was interpreted and the report reviewed and electronically signed by: PHYLLIS TORRES MD on Sep 23 2022 1:55PM [facility] Radiology Study observation (narrative) [facility] XR Foot - left AP and Latera l and obliqueOrdered By: [facility]-2022 [facility]phone ([facility] MICHAEL BATES ([id number]) 1955 M Date Time Provider Department 08/22/22 NADIR GRADY [facility] During your visit today, we recorded the following information about you: Nadir Grady MD 08/22/2022 9:11 AM Signed Let Michael know I did some looking into alternate treatments for esophageal spasms. There is a med called hyoscyamine that he would take three times a day and it will not affect BP. If interested I will send in script to [facility]. Karla Wadsworth MA 08/22/2022 9:23 AM Signed Spoke with Michael and gave Dr. Grady recommendations. He said he would think about it and let us know. I patient I would send the name of the medication via [employer]. ANA Mott MD 08/22/2022 9:35 AM Signed [...] tablet by mouth once daily. Managed by [facility] - omega-3 fatty acids 1,000 [...] strain [S13.9XXA] 07/30/2010 08/30/2010 Other physical therapy [[id number]] 08/16/2010 08/30/2010 Essential hypertension, benign [I10] 01/17/2012 [...] (more content not included)... Normal [facility] CBC W Auto Differential pane l (Bld)on 08-21-2022 Basophils (Bld) [#/Vol] 0.07 10*3/uL <0.11 k/uL [facility] Basophils/100 WBC (Bld) 1.4 % C [facility] Differential cell count method Nom (Bld) Auto [facility] Eosinophils (Bld) [#/Vol] 0.25 10*3/uL <0.46 k/ uL [facility] Eosinophils/100 WBC (Bld) 5.2 % [facility] Erythrocyte distribution width (RBC) [Ratio] 12.9 % 11.5 - 15.0 % [facility] Hematocrit (Bld) [Volume fraction] 39.1 % 39.0 - 51.0 % [facility] Hemoglobin (Bld) [Mass/Vol] 12.2 g/dL Low 13.0 - 17.0 g/dL [facility] Immature granulocytes (Bld) [#/Vol] <0.10 k/uL [facility] Immature granulocytes/100 WBC (Bld) 0.2 % [facility] Lymphocytes (Bld) [#/Vol] 1.04 10*3/uL 1. 00 - 4.00 k/uL [facility] Lymphocytes/100 WBC (Bld) 21.5 % [facility] MCH (RBC) [Entitic mass] 29.0 pg 26. 0 - 34.0 pg [facility] MCHC (RBC) [Mass/Vol] 31.2 g/dL 30.5 - 36.0 g/dL [facility] MCV (RBC) [Entitic vol] 93.1 fL 80.0 - 100.0 fL [facility] Monocytes (Bld) [#/Vol] 0.50 10*3/uL <0.87 k/uL [facility] Monocytes/100 WBC (Bld) 10.3 % [facility] Neutrophils (Bld) [#/Vol] 2.97 10*3/uL 1. 45 - 7.50 k/uL [facility] Neutrophils/100 WBC (Bld) 61.4 % [facility] Nucleated RBC (Bld) [#/Vol] <0.01 k/ uL [facility] Nucleated RBC/100 WBC (Bld) [Ratio] 0.0 /100 WBC [facility] Platelet mean volume (Bld) [Entitic vol] 9.6 fL 9.0 - 12.7 fL [facility] Platelets (Bld) [#/Vol] 216 10*3/uL 150 - 400 k/uL [facility] RBC (Bld) [#/Vol] 4.20 10*6/uL 4.20 - 6.00 m/uL [facility] WBC (Bld) [#/Vol] 4.84 10*3/uL 3.70 - 11.00 k/uL [facility] Iron and Iron binding capaci ty panelon 08-21-2022 Iron [Mass/Vol] 74 ug/dL 41 - 186 ug/dL [facility] Iron binding capacity [Mass/Vol] 402 ug/dL High 232 - 386 ug/dL [facility] Iron/TIBC [Molar ratio] 18.4 % 15.0 - 57.0 % [facility] UA DIP, URINE (POC)on 2021 BILIRUBIN UA (POCT) Negative Negative [facility] CLARITY UA (POCT) Clear [facility] COLOR UA (POCT) Yellow [facility] GLUCOSE UA (POCT) Negative Negative mg/dL [facility] HEMOGLOBIN/BLOOD UA (POCT) Negative Negative [facility] KETONE UA (POCT) Negative Negative mg/dL [facility] LEUKOCYTES UA (POCT) Negative Negative [facility] NITRITE UA (POCT) Negative Negative [facility] PH UA (POCT) 6.0 4.5 - 8.0 [facility] Protein Ql (U) Negative Negative mg/dL [facility] SPECIFIC GRAVITY UA (POCT) 1.010 1 .005 - 1.030 [facility] UROBILINOGEN UA (POCT) 0.2 E.U./dL Brandy l E.U./dL [facility] No Panel Informationon 07-09 [facility] No Panel Informationon 07-01 [facility] XR CHEST 2V FRONTAL/LATon [facility] XR Chest PA and Lateralon IMPRESSION: No acute radiographic abnormality. Machine Filler Shredder: [facility] Transcribe Date/Time: Jun 25 2022 9:32A Dictated by : JEANETH ASENCIO MD This examination was interpreted and the report reviewed and electronically signed by: JEANETH ASENCIO MD on Jun 25 2022 9:33AM [facility] DIVISION OF RADIOLOGY * * *Final Report* [...] soft tissues: Unremarkable. DIVISION OF RADIOLOGY Provider, [facility] - 06/25/2022 * * *Final Report* [...] Unremarkable. IMPRESSION IMPRESSION: No acute radiographic abnormality. Machine Filler Shredder: [facility] Transcribe Date/Time: Jun 25 2022 9:32A Dictated by : JEANETH ASENCIO MD This examination was interpreted and the report reviewed and electronically signed by: JEANETH ASENCIO MD on Jun 25 2022 9:33AM EST [facility] Radiology Study observation (narrative) [facility] XR Chest PA and LateralOrder ed By: [facility] Provider on 06-25-2022 [facility] Absolute lymphocyte counton 05-28-2022 Lymphocytes Auto (Unsp spec) [#/Vol] 0.55 10*3/uL 0.83-4.51 [facility] Work Phone: Basophil percentageon 2021 Basophils/100 WBC (Bld) 0.2 % 0-1 [facility] Work Phone: Chloride [Moles/Vol] 100 mmol/L 98-107 [facility] Work Phone: Eosinophils/100 WBC (Bld) 0.2 % 0-5 [facility] Work Phone: Glucose [Mass/Vol] 385 mg/dL 74-106 [facility] Work Phone: Comment on above: Glucose result great er than or equal to 200 mg/dLsuggests DIABETES MELLITUS per A.D.A. criteria. Neutrophils (Bld) [#/Vol] 4.0 10*3/uL 2.0-7.7 [facility] Work Phone: Neutrophils/100 WBC (Bld) 80.9 % 47-70 [facility] Work Phone: [phone] Potassium [Moles/Vol] 3.4 mmol/L 3.5-5.1 [facility] Work Phone: [phone] Sodium [Moles/Vol] 138 mmol/L 136-145 [facility] Work Phone: WBC (Bld) [#/Vol] 4.9 10*3/uL 4.4-11.0 [facility] Work Phone: [phone] Blood erythrocytes count (nu mber/volume)on 05-28-2022 RBC (Bld) [#/Vol] 3.86 10*6/uL 4.6-6.2 [facility] Work Phone: [phone] Blood hemoglobin measurement (mass/volume)on 05-28-2022 Hemoglobin (Bld) [Mass/Vol] 11.7 g/dL 13.0-16. 5 [facility] Work Phone: Blood lymphocytes/100 leukoc yteson 05-28-2022 Lymphocytes/100 WBC (Bld) 11.3 % 19-41 [facility] Work Phone: [phone] Blood manual differential co mment interpretation (narrative result)on 05-28-2022 Manual differential comment Santi (Bld) [Interp] SEE COMMENT [facility] Work Phone: [phone] Comment on above: LYMPHOPENIA NOTED Blood monocytes/100 leukocyt eson 05-28-2022 Monocytes/100 WBC (Bld) 7.2 % 0-10 [facility] Work Phone: [phone] Blood platelet adequacy dete ction by light microscopyon 05-28-2022 Platelets LM Ql (Bld) ADEQUATE ADEQ [facility] Work Phone: [phone] Blood platelet mean volumeon 05-28-2022 Platelet mean volume (Bld) [Entitic vol] 9.5 fL 6.2-12.0 [facility] Work Phone: Determination of erythrocyte mean corpuscular volume (MCV)on 05-28-2022 MCV (RBC) [Entitic vol] 87.6 fL 80-94 [facility] Work Phone: Hematocrit Auto (Bld) [Volum e fraction]on 05-28-2022 Hematocrit (Bld) [Volume fraction] 33.8 % 40-54 [facility] Work Phone: Laboratory - Chemistry and C hemistry - challengeon 05-28-2022 CO2 [Moles/Vol] 28.0 mmol/L 21.0-32.0 [facility] Work Phone: Urea nitrogen/Creatinine [Mass ratio] 11.3 mg/mg 10-20 [facility] Work Phone: Laboratory - Hematology and Cell countson 05-28-2022 Anisocytosis Ql (Bld) RARE [facility] Work Phone: Erythrocyte distribution width (RBC) [Entitic vol] 43.0 fL 35.1-43.9 [facility] Work Phone: Erythrocyte distribution width (RBC) [Ratio] 13.6 % 11.6-14.6 [facility] Work Phone: Immature granulocytes/100 WBC (Bld) 0.200 % 0.0-0.9 [facility] Work Phone: Comment on above: IG% - Immature Granu locytes (promyelocytes, myelocytes and metamyelocytes) > 1% indicates that a LEFT SHIFT is Present. MCH (RBC) [Entitic mass] 30.3 pg 27.0-32.0 [facility] Work Phone: Nucleated RBC/100 WBC (Bld) [Ratio] 0 % 0-5 [facility] Work Phone: MCHC Auto (RBC) [Mass/Vol]on 05-28-2022 MCHC (RBC) [Mass/Vol] 34.6 g/dL 32-36 [facility] Work Phone: No Panel Informationon 05-28 Troponin I High Sensitivity 12 pg/mL 3.0-78.0 [facility] Work Phone: Comment on above: Please Note: New Yajaira t Units and Gender Specific Reference Ranges. For more information see Policy Stat Procedure Shirley High Sensitivity Troponin (TNIH) and attachments. Estimated Creatinine Clearance Calc 67.91 ml/min [facility] Work Phone: Estimated GFR (MDRD) Amer 89 mL/min >60 [facility] Work Phone: Comment on above: GFR Calc Estimated GFR (MDRD) Non-Af Amer 74 mL/min >60 [facility] Work Phone: Comment on above: Non- GFR Calc Platelets bldon 05-28-2022 Platelets (Bld) [#/Vol] 217 10*3/uL 150-450 [facility] Work Phone: RBC morphologyon 05-28-2022 RBC morphology finding Nom (Bld) N CHROM NORMAL NORM C&C [facility] Work Phone: Serum or plasma calcium jaziel urement (mass/volume)on 05-28-2022 Calcium [Mass/Vol] 9.7 mg/dL 8.5-10.1 [facility] Work Phone: Serum or plasma creatinine m easurement (mass/volume)on 05-28-2022 Creatinine [Mass/Vol] 1.06 mg/dL 0.70-1.30 [facility] Work Phone: Comment on above: The validity of the calculated GFR & GFRAA in patients over 70 years has not been determined. Clinical correlation is essential. Serum or plasma urea nitroge n measurement (mass/volume)on 05-28-2022 Urea nitrogen [Mass/Vol] 12 mg/dL 7-18 [facility] Work Phone: Thin prep Papanicolaou smear with manual screeningon 05-28-2022 Thin prep Papanicolaou smear with manual screening 10 5-15 [facility] Work Phone: Serum or plasma cortisol osbaldo surement (mass/volume)on 04-24-2022 Cortisol [Mass/Vol] 31.00 ug/dL 3.44-22.45 [facility] Work Phone: Comment on above: Adult (AM) 5.27 - 22 .45 ug/dL Adult (PM) 3.44 - 16.76 ug/dLPlease note revised CORTISOL reference range effective 2019. Basophil percentageon 2021 Bilirubin [Mass/Vol] 0.30 mg/dL 0.20-1.00 [facility] Work Phone: Comment on above: For patients on eltr ombopag therapy, use of Dimension Shirley TBIL is not recommended. Cholesterol [Mass/Vol] 103 mg/dL <200 [facility] Work Phone: Comment on above: <200 mg/dL Desirable 200-240 mg/dL Borderline >240 mg/dL High Risk Protein [Mass/Vol] 7.2 g/dL 6.4-8.2 [facility] Work Phone: Triglyceride [Mass/Vol] 128 mg/dL <199 [facility] Work Phone: Comment on above: The drugs N-Acetylcy steine and Metamizole may falsely depress this assay.Serum Triglycerides Reference Interval Normal <150 mg/dL Borderline high 150 - 199 mg/dL High 200 - 499 mg/dL Very High > or = 500 mg/dL Direct bilirubinon 2 Bilirubin.direct [Mass/Vol] 0.10 mg/dL 0.00-0.3 0 [facility] Work Phone: LIPID PANEL (OUTSIDE)on 04-01 LDL:HDL Ratio [facility] Non-HDL Cholesterol [facility] TC:HDL Ratio [facility] VLDL Cholesterol [facility] Laboratory - Chemistry and C hemistry - challengeon 04-17-2022 ALP [Catalytic activity/Vol] 125 U/L 45-117 [facility] Work Phone: ALT [Catalytic activity/Vol] 24 U/L 16-61 [facility] Work Phone: Globulin (S) [Mass/Vol] 3.7 g/dL 2.2-4.2 [facility] Work Phone: Serum or plasma albumin jaziel urement (mass/volume)on 04-17-2022 Albumin [Mass/Vol] 3.5 g/dL 3.2-5.0 [facility] Work Phone: Serum or plasma cholesterol in HDL measurement (mass/volume)on 04-17-2022 Cholesterol in HDL [Mass/Vol] 38 mg/dL >40 [facility] Work Phone: Comment on above: The drugs N-Acetylcy steine and Metamizole may falsely depress this assay. Reference Range HDL <40 mg/dL Low HDL Cholesterol HDL >or= 60 mg/dL High HDL Cholesterol Serum or plasma cholesterol in VLDL measurement (mass/volume)on 04-17-2022 Cholesterol in VLDL [Mass/Vol] 26 mg/dL 5-40 [facility] Work Phone: Serum or plasma low density lipoprotein (LDL) cholesterol measurement (mass/volume)on 04-17-2022 Cholesterol in LDL [Mass/Vol] 39 mg/dL 0-130 [facility] Work Phone: Thin prep Papanicolaou smear with manual screeningon 04-17-2022 Thin prep Papanicolaou smear with manual screening 14 U/L 15-37 [facility] Work Phone: Basic metabolic 2000 panelon 04-05-2022 Anion gap [Moles/Vol] 6 mmol/L Normal 5-16 [facility] Comment on above: Order Comment: Speci men Type: BLOOD SPECIMEN Ordering Facility: [facility] Address: [address] [place] [address] Performed By: #### 2 4321-2 #### [facility] CLIA [id number] [address] [place], [place] [id number] [place] Calcium [Mass/Vol] 9.4 mg/dL Normal 8.5-10.5 [facility] Comment on above: Order Comment: Speci men Type: BLOOD SPECIMEN Ordering Facility: [facility] Address: [address] [place] [address] Performed By: #### 2 4321-2 #### [facility] CLIA [id number] [address] [place] [address] [place] Chloride [Moles/Vol] 105 mmol/L Normal 98-107 [facility] Comment on above: Order Comment: Speci men Type: BLOOD SPECIMEN Ordering Facility: [facility] Address: [address] [place] [address] Performed By: #### 2 4321-2 #### [facility] CLIA [id number] [address] [place] [address] [place] CO2 [Moles/Vol] 25 mmol/L Normal 21-32 [facility] Comment on above: Order Comment: Speci men Type: BLOOD SPECIMEN Ordering Facility: [facility] Address: [address] [place] [address] Performed By: #### 2 4321-2 #### [facility] CLIA [id number] [address] [place] [address] [place] Creatinine [Mass/Vol] 0.81 mg/dL Normal 0.50-1.40 [facility] Comment on above: Order Comment: Speci men Type: BLOOD SPECIMEN Ordering Facility: [facility] Address: [address] [place] [address] Result Comment: Nancy ents receiving either N-Acetylcysteine (NAC) or Metamizole prior to venipuncture, may have falsely depressed results. Performed By: #### 2 4321-2 #### [facility] CLIA [id number] [address] [place] [address] [place] ESTIMATED GLOMERULAR FILTRATION RATE 95 mL/min/1.73m??? Normal >=60 [facility] Comment on above: Order Comment: Speci men Type: BLOOD SPECIMEN Ordering Facility: [facility] Address: [address] [place] [address] Result Comment: Abril mated Glomerular Filtration Rate [...] GFR. Performed By: #### 2 4321-2 #### [facility] CLIA [id number] [address] [place] [address] [place] Glucose [Mass/Vol] 177 mg/dL High 70-100 [facility] Comment on above: Order Comment: Speckati sexton Type: BLOOD SPECIMEN Ordering Facility: [facility] Address: [address] [id number] Result Comment: The [place] Diabetes Association (ADA) provides guidance for cutoff [...] Standards of Medical Care in Diabetes 2016, [place] [employer]. Diabetes Care. 2016.39(Suppl 1). Results may be falsely elevated after the administration of Sulfapyridine. Results may be falsely depressed after the administration of Sulfasalazine. Performed By: #### 2 4321-2 #### [facility] CLIA [id number] [address] [place] [address] [place] Potassium [Moles/Vol] 5.5 mmol/L High 3.5-5.1 [facility] Comment on above: Order Comment: Nuhai carlie Type: BLOOD SPECIMEN Ordering Facility: [facility] Address: [address] [place] [address] Result Comment: Slig ht Hemolysis, Result may be affected. Performed By: #### 2 4321-2 #### [facility] CLIA [id number] [address] [place] [address] [place] Sodium [Moles/Vol] 136 mmol/L Normal 136-145 [facility] Comment on above: Order Comment: Speci men Type: BLOOD SPECIMEN Ordering Facility: [facility] Address: [address] [place] [address] Performed By: #### 2 4321-2 #### [facility] CLIA [id number] [address] [place] [address] [place] Urea nitrogen [Mass/Vol] 15 mg/dL Normal 7-26 [facility] Comment on above: Order Comment: Speci men Type: BLOOD SPECIMEN Ordering Facility: [facility] Address: [address] [place] [address] Result Comment: Slig ht Hemolysis, Result may be affected. Performed By: #### 2 4321-2 #### [facility] CLIA [id number] [address] [place] [address] [place] CBC panel Auto (Bld)on 04-05 Erythrocyte distribution width (RBC) [Ratio] 12.9 % Normal 11.5-15.0 [facility] Comment on above: Order Comment: Speci men Type: BLOOD SPECIMEN Ordering Facility: [facility] Address: [address] [place] [address] Performed By: #### 5 8410-2 #### [facility] CLIA [id number] [address] [place] [address] [place] Hematocrit (Bld) [Volume fraction] 35.7 % Low 39.0-51.0 [facility] Comment on above: Order Comment: Speci men Type: BLOOD SPECIMEN Ordering Facility: [facility] Address: [address] [place] [address] Performed By: #### 5 8410-2 #### [facility] CLIA [id number] [address] [place] [address] [place] Hemoglobin (Bld) [Mass/Vol] 11.9 g/dL Low 13.0-17. 0 [facility] Comment on above: Order Comment: Speci men Type: BLOOD SPECIMEN Ordering Facility: [facility] Address: [address] Performed By: #### 5 8410-2 #### [facility] CLIA [id number] [address] [place] [address] [place] MCH (RBC) [Entitic mass] 28.4 pg Normal 26.0-34.0 [facility] Comment on above: Order Comment: Speci men Type: BLOOD SPECIMEN Ordering Facility: [facility] Address: [address] [place] [address] Performed By: #### 5 8410-2 #### [facility] CLIA [id number] [address] [place] [address] [place] MCHC (RBC) [Mass/Vol] 33.3 g/dL Normal 30.5-36.0 [facility] Comment on above: Order Comment: Speci men Type: BLOOD SPECIMEN Ordering Facility: [facility] Address: [address] [place], [place] [address] Performed By: #### 5 8410-2 #### [facility] CLIA [id number] [address] [place] [address] [place] MCV (RBC) [Entitic vol] 85.2 fL Normal 80.0-100.0 [facility] Comment on above: Order Comment: Speci men Type: BLOOD SPECIMEN Ordering Facility: [facility] Address: [address] [place], [place] [address] Performed By: #### 5 8410-2 #### [facility] CLIA [id number] [address] [place] [address] [place] Nucleated RBC (Bld) [#/Vol] 10*3/uL Normal <0.01 [facility] Comment on above: Order Comment: Speci men Type: BLOOD SPECIMEN Ordering Facility: [facility] Address: [address] [place], [place] [address] Performed By: #### 5 8410-2 #### [facility] CLIA [id number] [address] [place] [address] [place] Platelet mean volume (Bld) [Entitic vol] 8.9 fL Low 9.0-12.7 [facility] Comment on above: Order Comment: Speci men Type: BLOOD SPECIMEN Ordering Facility: [facility] Address: [address] [place] [address] Performed By: #### 5 8410-2 #### [facility] CLIA [id number] [address] [place] [address] [place] Platelets (Bld) [#/Vol] 232 10*3/uL Normal 150-400 [facility] Comment on above: Order Comment: Speci men Type: BLOOD SPECIMEN Ordering Facility: [facility] Address: [address] [place] [address] Performed By: #### 5 8410-2 #### [facility] CLIA [id number] [address] [place] [address] [place] RBC (Bld) [#/Vol] 4.19 10*6/uL Low 4.20-6.00 [facility] Comment on above: Order Comment: Speci men Type: BLOOD SPECIMEN Ordering Facility: [facility] Address: [address] [place] [address] Performed By: #### 5 8410-2 #### [facility] CLIA [id number] [address] [place] [address] [place] WBC (Bld) [#/Vol] 6.41 10*3/uL Normal 3.70-11.00 [facility] Comment on above: Order Comment: Speci men Type: BLOOD SPECIMEN Ordering Facility: [facility] Address: [address] [place] [address] Performed By: #### 5 8410-2 #### [facility] CLIA [id number] [address] [place] [address] [place] [address] BRAIN WO IVCONon 04-05-[address] BRAIN WO IVCON * * *Final Report* * * DATE OF EXAM: Apr 05 2022 2:00PM [facility] 0504 - CT BRAIN WO IVCON [...] base and imaged soft tissues are unremarkable. Director [employer] (topogram) images: No acute findings IMPRESSION: No significant change. No acute intracranial process Machine Filler Shredder: [facility] Transcribe Date/Time: Apr 05 2022 2:06P Dictated by : CEDRIC MARCUS MD This examination was interpreted and the report reviewed and electronically signed by: CEDRIC MARCUS MD on Apr 05 2022 2:08PM EST [id number] Normal [facility] ECG COMPLETEon 04-05-2022 ECG COMPLETE Ventricular Rate : 9 2 BPM Atrial Rate : 92 BPM P-R Interval : 166 ms QRS Duration : 92 ms Q-T Interval : 354 ms QTC Calculation(Bazett) : 437 ms Calculated P [place] : 49 degrees Calculated R [place] : 22 degrees Calculated T [place] : 12 degrees Normal sinus rhythm Normal ECG No previous ECGs available Confirmed by ZARA [facility] ([id number]) on 04/05/2022 3:27:39 PM NAME : MICHAEL BATES PID : [id number] : 1955 Gender : Male Race : ORD : [id number] Procedure Date : Apr 05 2022 13:12:29 Edit Date : Apr 05 2022 15:27:40 Diagnosis: Normal sinus rhythm Normal ECG No previous ECGs available Confirmed by JASMIN ZUÑIGA MD ([id number]) on 04/05/2022 3:27:39 PM Test Reason : STAT Location : 0 : ED 33 Overread By : JASMIN ZUÑIGA MD Edited By : JASMIN ZUÑIGA MD Referred By : , Acquired by : THEODORE, [facility] ED NOTEon 04-05-2022 ED NOTE HNO ID: [id number] Author: Jeannette Merchant RN Service: ? Author Type: Registered Nurse Type: ED Notes Filed: 04/05/2022 3:28 PM Note Text: Pt DC at this time with family. All papers reviewed. All questions answered. [facility] ED NOTE HNO ID: [id number] Author: Renan Martinez RN Service: ? Author Type: Registered Nurse Type: ED Notes Filed: 04/05/2022 1:07 PM Note Text: Pt reportedly had an acute onset of tremors while in the hospital. Pt was made an Emergency on the grounds and brought to the ed with family. [facility] ED PROV NOTEon 04-05-2022 ED PROV NOTE HNO ID: [id number] Author: Reji Rudd MD Service: Emergency Medicine [...] variant 07/22/2006 Since head injury around 1996 - Mixed hyperlipidemia 08/04/2015 - Neck pain, [...] - 2D ECHO (EXEP) 01/16/2017 EF=60%, 1+ CA and TI - CATARACT EXTRACTION HX Left [...] BP Puls (more content not included)... Normal [facility] TROPONIN I HIGH SENSITIVITYo n 04-05-2022 Tropinin I.cardiac panel High sensitivity method <2.5 Normal 0.0-54.0 [facility] Comment on above: Order Comment: Speci men Type: BLOOD SPECIMEN Ordering Facility: [facility] Address: [address], [place] [address] Result Comment: This assay uses different antibodies than our current assay, and assays, even by the same quilting supervisor may recognize different regions of the antibody and cannot be used interchangeably. Expect results of this assay to run higher than the previous assay. Performed By: #### H STROP #### [facility] CLIA [id number] [address] [place] [address] [place] Absolute lymphocyte counton 03-22-2022 Lymphocytes Auto (Unsp spec) [#/Vol] 1.34 10*3/uL 0.83-4.51 [facility] Work Phone: Basophil percentageon 2021 Basophil percentage 0-5 SEEN /hpf 0-5 [facility] Work Phone: Basophils/100 WBC (Bld) 0.9 % 0-1 [facility] Work Phone: Chloride [Moles/Vol] 101 mmol/L 98-107 [facility] Work Phone: Eosinophils/100 WBC (Bld) 5.0 % 0-5 [facility] Work Phone: Glucose [Mass/Vol] 163 mg/dL 74-106 [facility] Work Phone: Comment on above: Fasting Glucose resu lt greater than or equal to 126 mg/dL suggests DIABETES MELLITUS per A.D.A. criteria. Neutrophils (Bld) [#/Vol] 4.5 10*3/uL 2.0-7.7 [facility] Work Phone: Neutrophils/100 WBC (Bld) 65.3 % 47-70 [facility] Work Phone: Potassium [Moles/Vol] 4.7 mmol/L 3.5-5.1 [facility] Work Phone: Sodium [Moles/Vol] 134 mmol/L 136-145 [facility] Work Phone: [phone] WBC (Bld) [#/Vol] 6.9 10*3/uL 4.4-11.0 [facility] Work Phone: [phone] Bilirubin Test strip Ql (U)o n 03-22-2022 Bilirubin Ql (U) Negative Negative [facility] Work Phone: [phone] Blood erythrocytes count (nu mber/volume)on 03-22-2022 RBC (Bld) [#/Vol] 4.04 10*6/uL 4.6-6.2 [facility] Work Phone: [phone] Blood hemoglobin measurement (mass/volume)on 03-22-2022 Hemoglobin (Bld) [Mass/Vol] 11.6 g/dL 13.0-16. 5 [facility] Work Phone: Blood lymphocytes/100 leukoc yteson 03-22-2022 Lymphocytes/100 WBC (Bld) 19.5 % 19-41 [facility] Work Phone: Blood monocytes/100 leukocyt eson 03-22-2022 Monocytes/100 WBC (Bld) 8.7 % 0-10 [facility] Work Phone: [phone] Blood platelet mean volumeon 03-22-2022 Platelet mean volume (Bld) [Entitic vol] 9.7 fL 6.2-12.0 [facility] Work Phone: [phone] Determination of erythrocyte mean corpuscular volume (MCV)on 03-22-2022 MCV (RBC) [Entitic vol] 86.1 fL 80-94 [facility] Work Phone: [phone] Hematocrit Auto (Bld) [Volum e fraction]on 03-22-2022 Hematocrit (Bld) [Volume fraction] 34.8 % 40-54 [facility] Work Phone: [phone] Ketones Test strip Ql (U)on 03-22-2022 Ketones Ql (U) Negative Negative [facility] Work Phone: [phone] Laboratory - Chemistry and C hemistry - challengeon 03-22-2022 CO2 [Moles/Vol] 25.0 mmol/L 21.0-32.0 [facility] Work Phone: [phone] Magnesium [Mass/Vol] 1.8 mg/dL 1.6-2.6 [facility] Work Phone: [phone] Urea nitrogen/Creatinine [Mass ratio] 15.8 mg/mg 10-20 [facility] Work Phone: [phone] Laboratory - Hematology and Cell countson 03-22-2022 Erythrocyte distribution width (RBC) [Entitic vol] 38.9 fL 35.1-43.9 [facility] Work Phone: [phone] Erythrocyte distribution width (RBC) [Ratio] 12.5 % 11.6-14.6 [facility] Work Phone: [phone] Immature granulocytes/100 WBC (Bld) 0.600 % 0.0-0.9 [facility] Work Phone: Comment on above: IG% - Immature Granu locytes (promyelocytes, myelocytes and metamyelocytes) > 1% indicates that a LEFT SHIFT is Present. MCH (RBC) [Entitic mass] 28.7 pg 27.0-32.0 [facility] Work Phone: [phone] Nucleated RBC/100 WBC (Bld) [Ratio] 0 % 0-5 [facility] Work Phone: [phone] MCHC Auto (RBC) [Mass/Vol]on 03-22-2022 MCHC (RBC) [Mass/Vol] 33.3 g/dL 32-36 [facility] Work Phone: [phone] Mucus LM Ql (Urine sed)on Mucus Ql (Urine sed) 0 SEEN /hpf [facility] Work Phone: [phone] Nitrite Test strip Ql (U)on 03-22-2022 Nitrite Ql (U) Negative Negative [facility] Work Phone: [phone] No Panel Informationon 03-22 Estimated Creatinine Clearance Calc 63.15 ml/min [facility] Work Phone: [phone] Estimated GFR (MDRD) Amer 82 mL/min >60 [facility] Work Phone: Comment on above: GFR Calc Estimated GFR (MDRD) Non-Af Amer 68 mL/min >60 [facility] Work Phone: Comment on above: Non- GFR Calc Platelets bldon 03-22-2022 Platelets (Bld) [#/Vol] 223 10*3/uL 150-450 [facility] Work Phone: Protein Test strip Ql (U)on 03-22-2022 Protein Ql (U) Negative Negative [facility] Work Phone: Serum or plasma calcium jaziel urement (mass/volume)on 03-22-2022 Calcium [Mass/Vol] 8.7 mg/dL 8.5-10.1 [facility] Work Phone: Serum or plasma creatinine m easurement (mass/volume)on 03-22-2022 Creatinine [Mass/Vol] 1.14 mg/dL 0.70-1.30 [facility] Work Phone: Comment on above: The validity of the calculated GFR & GFRAA in patients over 70 years has not been determined. Clinical correlation is essential. Serum or plasma urea nitroge n measurement (mass/volume)on 03-22-2022 Urea nitrogen [Mass/Vol] 18 mg/dL 7-18 [facility] Work Phone: Squamous epithelial cells de tection in urine sediment by light microscopyon 03-22-2022 Epithelial cells.squamous LM Ql (Urine sed) 5-10 SEEN /hpf 0-5 [facility] Work Phone: Thin prep Papanicolaou smear with manual screeningon 03-22-2022 Thin prep Papanicolaou smear with manual screening 8 5-15 [facility] Work Phone: Urine blood detectionon 03-02 RBC Ql (U) Negative Negative [facility] Work Phone: RBC Ql (U) 0 SEEN /hpf 0-5 [facility] Work Phone: Urine clarityon 03-22-2022 Clarity (U) Sl. Cloudy Clear [facility] Work Phone: Urine color determinationon 03-22-2022 Color (U) Yellow Yellow [facility] Work Phone: Urine glucose detectionon Glucose Ql (U) 50 mg/dl Normal [facility] Work Phone: Urine leukocyte esterase det ection by dipstickon 03-22-2022 Leukocyte esterase Test strip Ql (U) 25 /ul Negative [facility] Work Phone: [phone] Urine pHon 03-22-2022 pH (U) 6.0 [pH] 5.0 - 8.0 [facility] Work Phone: Urine sediment bacteria coun t by microscopy (number/high power field)on 03-22-2022 Bacteria LM.HPF (Urine sed) [#/Area] 0 /[HPF] None Seen [facility] Work Phone: Urine specific gravity measu rementon 03-22-2022 Specific gravity (U) [Rel density] 1.010 1.002-1.03 0 [facility] Work Phone: Urobilinogen Auto test strip Ql (U)on 03-22-2022 Urobilinogen Ql (U) Normal mg/dl Normal [facility] Work Phone: No Panel Informationon 03-19 [facility] Absolute lymphocyte counton 02-04-2022 Lymphocytes Auto (Unsp spec) [#/Vol] 1.27 10*3/uL 0.83-4.51 [facility] Work Phone: Basophil percentageon 2021 Basophils/100 WBC (Bld) 0.8 % 0-1 [facility] Work Phone: [phone] Chloride [Moles/Vol] 105 mmol/L 98-107 [facility] Work Phone: [phone] Eosinophils/100 WBC (Bld) 4.4 % 0-5 [facility] Work Phone: [phone] Glucose [Mass/Vol] 198 mg/dL 74-106 [facility] Work Phone: [phone] Comment on above: Fasting Glucose resu lt greater than or equal to 126 mg/dL suggests DIABETES MELLITUS per A.D.A. criteria. Neutrophils (Bld) [#/Vol] 2.9 10*3/uL 2.0-7.7 [facility] Work Phone: [phone] Neutrophils/100 WBC (Bld) 60.8 % 47-70 [facility] Work Phone: Potassium [Moles/Vol] 4.2 mmol/L 3.5-5.1 [facility] Work Phone: Sodium [Moles/Vol] 136 mmol/L 136-145 [facility] Work Phone: WBC (Bld) [#/Vol] 4.8 10*3/uL 4.4-11.0 [facility] Work Phone: [phone] Blood erythrocytes count (nu mber/volume)on 02-04-2022 RBC (Bld) [#/Vol] 3.98 10*6/uL 4.6-6.2 [facility] Work Phone: [phone] Blood hemoglobin measurement (mass/volume)on 02-04-2022 Hemoglobin (Bld) [Mass/Vol] 11.6 g/dL 13.0-16. 5 [facility] Work Phone: Blood lymphocytes/100 leukoc yteson 02-04-2022 Lymphocytes/100 WBC (Bld) 26.5 % 19-41 [facility] Work Phone: Blood monocytes/100 leukocyt eson 02-04-2022 Monocytes/100 WBC (Bld) 7.1 % 0-10 [facility] Work Phone: Blood platelet mean volumeon 02-04-2022 Platelet mean volume (Bld) [Entitic vol] 9.5 fL 6.2-12.0 [facility] Work Phone: [phone] Determination of erythrocyte mean corpuscular volume (MCV)on 02-04-2022 MCV (RBC) [Entitic vol] 90.7 fL 80-94 [facility] Work Phone: Hematocrit Auto (Bld) [Volum e fraction]on 02-04-2022 Hematocrit (Bld) [Volume fraction] 36.1 % 40-54 [facility] Work Phone: Laboratory - Chemistry and C hemistry - challengeon 02-04-2022 CO2 [Moles/Vol] 28.0 mmol/L 21.0-32.0 [facility] Work Phone: Urea nitrogen/Creatinine [Mass ratio] 21.5 mg/mg 10-20 [facility] Work Phone: Laboratory - Hematology and Cell countson 02-04-2022 Erythrocyte distribution width (RBC) [Entitic vol] 40.2 fL 35.1-43.9 [facility] Work Phone: Erythrocyte distribution width (RBC) [Ratio] 12.1 % 11.6-14.6 [facility] Work Phone: Immature granulocytes/100 WBC (Bld) 0.400 % 0.0-0.9 [facility] Work Phone: Comment on above: IG% - Immature Granu locytes (promyelocytes, myelocytes and metamyelocytes) > 1% indicates that a LEFT SHIFT is Present. MCH (RBC) [Entitic mass] 29.1 pg 27.0-32.0 [facility] Work Phone: Nucleated RBC/100 WBC (Bld) [Ratio] 0 % 0-5 [facility] Work Phone: MCHC Auto (RBC) [Mass/Vol]on 02-04-2022 MCHC (RBC) [Mass/Vol] 32.1 g/dL 32-36 [facility] Work Phone: No Panel Informationon 02-04 Estimated GFR (MDRD) Amer 110 mL/min >60 [facility] Work Phone: Comment on above: GFR Calc Estimated GFR (MDRD) Non-Af Amer 91 mL/min >60 [facility] Work Phone: Comment on above: Non- GFR Calc Platelets bldon 02-04-2022 Platelets (Bld) [#/Vol] 186 10*3/uL 150-450 [facility] Work Phone: Serum or plasma calcium jaziel urement (mass/volume)on 02-04-2022 Calcium [Mass/Vol] 8.6 mg/dL 8.5-10.1 [facility] Work Phone: Serum or plasma creatinine m easurement (mass/volume)on 02-04-2022 Creatinine [Mass/Vol] 0.88 mg/dL 0.70-1.30 [facility] Work Phone: Comment on above: The validity of the calculated GFR & GFRAA in patients over 70 years has not been determined. Clinical correlation is essential. Serum or plasma urea nitroge n measurement (mass/volume)on 02-04-2022 Urea nitrogen [Mass/Vol] 19 mg/dL 7-18 [facility] Work Phone: Thin prep Papanicolaou smear with manual screeningon 02-04-2022 Thin prep Papanicolaou smear with manual screening 3 5-15 [facility] Work Phone: Free thyroxine indexon 12-18 Free T4 index Calc [Mass/Vol] 2.8 1.4-4.5 [facility] Work Phone: Laboratory - Chemistry and C hemistry - challengeon 12-18-2021 T4 [Mass/Vol] 8.2 ug/dL 4.5-12.1 [facility] Work Phone: No Panel Informationon 12-18 Thyroid Stimulating Hormone (TSH) 2.72 uIU/mL 0.358-3.74 [facility] Work Phone: T3 uptakeon 12-18-2021 T3RU 34 % 33-40 [facility] Work Phone: CNPNon 11-22-2021 CNPN Telephone ([facility] MICHAEL BATES ([id number]) 1955 M Date Time Provider Department 11/22/21 NADIR GRADY [facility] During your visit today, we recorded the [...] tablet by mouth once daily. 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] 12/04/2007 Unspecified pruritic disorder [L29.9] 03/02/2009 04/12/2020 Lumbago [M54.50] 02/09/2010 Sciatica [M54.30] 02/09/2010 Neck sprain and strain [S13.9XXA] 07/30/2010 08/30/2010 Other physical therapy [TVI3160] 08/16/2010 08/30/2010 Essential hypertension, benign [I10] 01/17/2012 [...] NADIR GRADY on 12/03/21 Normal [facility] Absolute lymphocyte counton 11-02-2021 Lymphocytes Auto (Unsp spec) [#/Vol] 1.30 10*3/uL 0.83-4.51 [facility] Work Phone: Basophil percentageon 2021 Basophils/100 WBC (Bld) 0.8 % 0-1 [facility] Work Phone: Chloride [Moles/Vol] 105 mmol/L 98-107 [facility] Work Phone: Eosinophils/100 WBC (Bld) 3.4 % 0-5 [facility] Work Phone: Glucose [Mass/Vol] 119 mg/dL 74-106 [facility] Work Phone: [phone] Comment on above: Fasting Glucose resu lt from 100 to 125 mg/dL suggests IMPAIRED HOMEOSTASIS per A.D.A. criteria. Neutrophils (Bld) [#/Vol] 3.1 10*3/uL 2.0-7.7 [facility] Work Phone: Neutrophils/100 WBC (Bld) 61.5 % 47-70 [facility] Work Phone: Potassium [Moles/Vol] 4.3 mmol/L 3.5-5.1 [facility] Work Phone: Sodium [Moles/Vol] 137 mmol/L 136-145 [facility] Work Phone: WBC (Bld) [#/Vol] 5.1 10*3/uL 4.4-11.0 [facility] Work Phone: [phone] Basophil percentage 0 SEEN /hpf [facility] Work Phone: [phone] Bilirubin Test strip Ql (U)o n 11-02-2021 Bilirubin Ql (U) Negative Negative [facility] Work Phone: Blood erythrocytes count (nu mber/volume)on 11-02-2021 RBC (Bld) [#/Vol] 4.13 10*6/uL 4.6-6.2 [facility] Work Phone: Blood hemoglobin measurement (mass/volume)on 11-02-2021 Hemoglobin (Bld) [Mass/Vol] 12.0 g/dL 13.0-16. 5 [facility] Work Phone: Blood lymphocytes/100 leukoc yteson 11-02-2021 Lymphocytes/100 WBC (Bld) 25.6 % 19-41 [facility] Work Phone: Blood monocytes/100 leukocyt eson 11-02-2021 Monocytes/100 WBC (Bld) 8.5 % 0-10 [facility] Work Phone: [phone] Blood platelet mean volumeon 11-02-2021 Platelet mean volume (Bld) [Entitic vol] 9.1 fL 6.2-12.0 [facility] Work Phone: [phone] Determination of erythrocyte mean corpuscular volume (MCV)on 11-02-2021 MCV (RBC) [Entitic vol] 86.2 fL 80-94 [facility] Work Phone: [phone] Hematocrit Auto (Bld) [Volum e fraction]on 11-02-2021 Hematocrit (Bld) [Volume fraction] 35.6 % 40-54 [facility] Work Phone: Ketones Test strip Ql (U)on 11-02-2021 Ketones Ql (U) Negative Negative [facility] Work Phone: Laboratory - Chemistry and C hemistry - challengeon 11-02-2021 CO2 [Moles/Vol] 26.0 mmol/L 21.0-32.0 [facility] Work Phone: Urea nitrogen/Creatinine [Mass ratio] 19.8 mg/mg 10-20 [facility] Work Phone: Laboratory - Hematology and Cell countson 11-02-2021 Erythrocyte distribution width (RBC) [Entitic vol] 39.7 fL 35.1-43.9 [facility] Work Phone: [phone] Erythrocyte distribution width (RBC) [Ratio] 12.6 % 11.6-14.6 [facility] Work Phone: [phone] Immature granulocytes/100 WBC (Bld) 0.200 % 0.0-0.9 [facility] Work Phone: Comment on above: IG% - Immature Granu locytes (promyelocytes, myelocytes and metamyelocytes) > 1% indicates that a LEFT SHIFT is Present. MCH (RBC) [Entitic mass] 29.1 pg 27.0-32.0 [facility] Work Phone: Nucleated RBC/100 WBC (Bld) [Ratio] 0 % 0-5 [facility] Work Phone: MCHC Auto (RBC) [Mass/Vol]on 11-02-2021 MCHC (RBC) [Mass/Vol] 33.7 g/dL 32-36 [facility] Work Phone: Mucus LM Ql (Urine sed)on Mucus Ql (Urine sed) 0 SEEN /hpf [facility] Work Phone: Nitrite Test strip Ql (U)on 11-02-2021 Nitrite Ql (U) Negative Negative [facility] Work Phone: No Panel Informationon 11-02 Estimated Creatinine Clearance Calc 84.88 ml/min [facility] Work Phone: Estimated GFR (MDRD) Amer 114 mL/min >60 [facility] Work Phone: Comment on above: GFR Calc Estimated GFR (MDRD) Non-Af Amer 94 mL/min >60 [facility] Work Phone: Comment on above: Non- GFR Calc Platelets bldon 11-02-2021 Platelets (Bld) [#/Vol] 170 10*3/uL 150-450 [facility] Work Phone: Protein Test strip Ql (U)on 11-02-2021 Protein Ql (U) Negative Negative [facility] Work Phone: Serum or plasma calcium jaziel urement (mass/volume)on 11-02-2021 Calcium [Mass/Vol] 9.2 mg/dL 8.5-10.1 [facility] Work Phone: Serum or plasma creatinine m easurement (mass/volume)on 11-02-2021 Creatinine [Mass/Vol] 0.86 mg/dL 0.70-1.30 [facility] Work Phone: Comment on above: The validity of the calculated GFR & GFRAA in patients over 70 years has not been determined. Clinical correlation is essential. Serum or plasma urea nitroge n measurement (mass/volume)on 11-02-2021 Urea nitrogen [Mass/Vol] 17 mg/dL 7-18 [facility] Work Phone: Squamous epithelial cells de tection in urine sediment by light microscopyon 11-02-2021 Epithelial cells.squamous LM Ql (Urine sed) 0 SEEN /hpf [facility] Work Phone: Thin prep Papanicolaou smear with manual screeningon 11-02-2021 Thin prep Papanicolaou smear with manual screening 6 5-15 [facility] Work Phone: Urine blood detectionon RBC Ql (U) Negative Negative [facility] Work Phone: RBC Ql (U) 0 SEEN /hpf [facility] Work Phone: Urine clarityon 11-02-2021 Clarity (U) Clear Clear [facility] Work Phone: Urine color determinationon 11-02-2021 Color (U) Yellow Yellow [facility] Work Phone: Urine glucose detectionon Glucose Ql (U) Normal mg/dl Normal [facility] Work Phone: Urine leukocyte esterase det ection by dipstickon 11-02-2021 Leukocyte esterase Test strip Ql (U) Negative Negative [facility] Work Phone: [phone] Urine pHon 11-02-2021 pH (U) 6.0 [pH] [facility] Work Phone: Urine sediment bacteria coun t by microscopy (number/high power field)on 11-02-2021 Bacteria LM.HPF (Urine sed) [#/Area] 0 /[HPF] None Seen [facility] Work Phone: Urine specific gravity measu rementon 11-02-2021 Specific gravity (U) [Rel density] 1.010 [facility] Work Phone: Urobilinogen Auto test strip Ql (U)on 11-02-2021 Urobilinogen Ql (U) Normal mg/dl Normal [facility] Work Phone: Basophil percentageon 2021 Bilirubin [Mass/Vol] 0.20 mg/dL 0.20-1.00 [facility] Work Phone: Comment on above: For patients on eltr ombopag therapy, use of Dimension [place] TBIL is not recommended. Cholesterol [Mass/Vol] 101 mg/dL <200 [facility] Work Phone: Comment on above: <200 mg/dL Desirable 200-240 mg/dL Borderline >240 mg/dL High Risk Protein [Mass/Vol] 7.5 g/dL 6.4-8.2 [facility] Work Phone: Triglyceride [Mass/Vol] 85 mg/dL [facility] Work Phone: Comment on above: The drugs N-Acetylcy steine and Metamizole may falsely depress this assay.Serum Triglycerides Reference Interval Normal <150 mg/dL Borderline high 150 - 199 mg/dL High 200 - 499 mg/dL Very High > or = 500 mg/dL Direct bilirubinon 2 Bilirubin.direct [Mass/Vol] 0.09 mg/dL 0.00-0.3 0 [facility] Work Phone: Laboratory - Chemistry and C hemistry - challengeon 10-18-2021 ALP [Catalytic activity/Vol] 123 U/L 45-117 [facility] Work Phone: ALT [Catalytic activity/Vol] 26 U/L 16-61 [facility] Work Phone: Globulin (S) [Mass/Vol] 3.7 g/dL 2.2-4.2 [facility] Work Phone: Serum or plasma albumin jaziel urement (mass/volume)on 10-18-2021 Albumin [Mass/Vol] 3.8 g/dL 3.2-5.0 [facility] Work Phone: Serum or plasma cholesterol in HDL measurement (mass/volume)on 10-18-2021 Cholesterol in HDL [Mass/Vol] 42 mg/dL [facility] Work Phone: Comment on above: The drugs N-Acetylcy steine and Metamizole may falsely depress this assay. Reference Range HDL <40 mg/dL Low HDL Cholesterol HDL >or= 60 mg/dL High HDL Cholesterol Serum or plasma cholesterol in VLDL measurement (mass/volume)on 10-18-2021 Cholesterol in VLDL [Mass/Vol] 17 mg/dL 5-40 [facility] Work Phone: Serum or plasma low density lipoprotein (LDL) cholesterol measurement (mass/volume)on 10-18-2021 Cholesterol in LDL [Mass/Vol] 42 mg/dL 0-130 [facility] Work Phone: Thin prep Papanicolaou smear with manual screeningon 10-18-2021 Thin prep Papanicolaou smear with manual screening 19 U/L 15-37 [facility] Work Phone: Absolute lymphocyte counton 10-16-2021 Lymphocytes Auto (Unsp spec) [#/Vol] 1.24 10*3/uL 0.83-4.51 [facility] Work Phone: Basophil percentageon 2021 Basophils/100 WBC (Bld) 0.7 % 0-1 [facility] Work Phone: Bilirubin [Mass/Vol] 0.30 mg/dL 0.20-1.00 [facility] Work Phone: Comment on above: For patients on eltr ombopag therapy, use of Dimension [place] TBIL is not recommended. Chloride [Moles/Vol] 105 mmol/L 98-107 [facility] Work Phone: Eosinophils/100 WBC (Bld) 4.1 % 0-5 [facility] Work Phone: Glucose [Mass/Vol] 136 mg/dL 74-106 [facility] Work Phone: Comment on above: Fasting Glucose resu lt greater than or equal to 126 mg/dL suggests DIABETES MELLITUS per A.D.A. criteria. Neutrophils (Bld) [#/Vol] 3.4 10*3/uL 2.0-7.7 [facility] Work Phone: Neutrophils/100 WBC (Bld) 63.2 % 47-70 [facility] Work Phone: Potassium [Moles/Vol] 4.4 mmol/L 3.5-5.1 [facility] Work Phone: Protein [Mass/Vol] 7.7 g/dL 6.4-8.2 [facility] Work Phone: Sodium [Moles/Vol] 137 mmol/L 136-145 [facility] Work Phone: WBC (Bld) [#/Vol] 5.4 10*3/uL 4.4-11.0 [facility] Work Phone: Blood erythrocytes count (nu mber/volume)on 10-16-2021 RBC (Bld) [#/Vol] 4.11 10*6/uL 4.6-6.2 [facility] Work Phone: Blood hemoglobin measurement (mass/volume)on 10-16-2021 Hemoglobin (Bld) [Mass/Vol] 12.2 g/dL 13.0-16. 5 [facility] Work Phone: Blood lymphocytes/100 leukoc yteson 10-16-2021 Lymphocytes/100 WBC (Bld) 22.9 % 19-41 [facility] Work Phone: Blood monocytes/100 leukocyt eson 10-16-2021 Monocytes/100 WBC (Bld) 8.7 % 0-10 [facility] Work Phone: Blood platelet mean volumeon 10-16-2021 Platelet mean volume (Bld) [Entitic vol] 9.1 fL 6.2-12.0 [facility] Work Phone: Determination of erythrocyte mean corpuscular volume (MCV)on 10-16-2021 MCV (RBC) [Entitic vol] 87.3 fL 80-94 [facility] Work Phone: Hematocrit Auto (Bld) [Volum e fraction]on 10-16-2021 Hematocrit (Bld) [Volume fraction] 35.9 % 40-54 [facility] Work Phone: [phone] INR in Blood by Coagulation assayon 10-16-2021 INR Coag (Bld) [Relative time] 1.0 {INR} [facility] Work Phone: [phone] Laboratory - Chemistry and C hemistry - challengeon 10-16-2021 ALP [Catalytic activity/Vol] 140 U/L 45-117 [facility] Work Phone: ALT [Catalytic activity/Vol] 30 U/L 16-61 [facility] Work Phone: CO2 [Moles/Vol] 28.0 mmol/L 21.0-32.0 [facility] Work Phone: Globulin (S) [Mass/Vol] 3.9 g/dL 2.2-4.2 [facility] Work Phone: Urea nitrogen/Creatinine [Mass ratio] 37.7 mg/mg 10-20 [facility] Work Phone: Laboratory - Coagulationon 0 10-16-2021 aPTT Coag (Bld) [Time] 29.5 s 24.1-36.2 [facility] Work Phone: PT Coag (PPP) [Time] 12.9 s 11.7-14.[address] [facility] Work Phone: Laboratory - Hematology and Cell countson 10-16-2021 Erythrocyte distribution width (RBC) [Entitic vol] 40.0 fL 35.1-43.9 [facility] Work Phone: [phone] Erythrocyte distribution width (RBC) [Ratio] 12.5 % 11.6-14.6 [facility] Work Phone: Immature granulocytes/100 WBC (Bld) 0.400 % 0.0-0.9 [facility] Work Phone: [phone] Comment on above: IG% - Immature Granu locytes (promyelocytes, myelocytes and metamyelocytes) > 1% indicates that a LEFT SHIFT is Present. MCH (RBC) [Entitic mass] 29.7 pg 27.0-32.0 [facility] Work Phone: Nucleated RBC/100 WBC (Bld) [Ratio] 0 % 0-5 [facility] Work Phone: MCHC Auto (RBC) [Mass/Vol]on 10-16-2021 MCHC (RBC) [Mass/Vol] 34.0 g/dL 32-36 [facility] Work Phone: No Panel Informationon 10-16 Estimated Creatinine Clearance Calc 89.02 ml/min [facility] Work Phone: Estimated GFR (MDRD) Amer 120 mL/min >60 [facility] Work Phone: Comment on above: GFR Calc Estimated GFR (MDRD) Non-Af Amer 99 mL/min >60 [facility] Work Phone: Comment on above: Non- GFR Calc Troponin I High Sensitivity 5 pg/mL 3.0-78.0 [facility] Work Phone: Comment on above: Please Note: New Yajaira t Units and Gender Specific Reference Ranges. For more information see Policy Stat Procedure Shirley High Sensitivity Troponin (TNIH) and attachments. SARS-CoV-2 Antigen (Rapid) [facility] Work Phone: Platelets bldon 10-16-2021 Platelets (Bld) [#/Vol] 182 10*3/uL 150-450 [facility] Work Phone: Serum or plasma albumin jaziel urement (mass/volume)on 10-16-2021 Albumin [Mass/Vol] 3.8 g/dL 3.2-5.0 [facility] Work Phone: Serum or plasma albumin/glob ulin mass ratioon 10-16-2021 Albumin/Globulin [Mass ratio] 1.0 {ratio} 0.9-2.4 [facility] Work Phone: Serum or plasma calcium jaziel urement (mass/volume)on 10-16-2021 Calcium [Mass/Vol] 8.9 mg/dL 8.5-10.1 [facility] Work Phone: Serum or plasma creatinine m easurement (mass/volume)on 10-16-2021 Creatinine [Mass/Vol] 0.82 mg/dL 0.70-1.30 [facility] Work Phone: Comment on above: The validity of the calculated GFR & GFRAA in patients over 70 years has not been determined. Clinical correlation is essential. Serum or plasma urea nitroge n measurement (mass/volume)on 10-16-2021 Urea nitrogen [Mass/Vol] 31 mg/dL 7-18 [facility] Work Phone: Thin prep Papanicolaou smear with manual screeningon 10-16-2021 Thin prep Papanicolaou smear with manual screening 17 U/L 15-37 [facility] Work Phone: Thin prep Papanicolaou smear with manual screening 4 5-15 [facility] Work Phone: XR Chest PA and Lateralon IMPRESSION: No acute radiographic abnormality. Machine Filler Shredder: FAWN Transcribe Date/Time: Jun 27 2021 4:09P Dictated by : ANDI MEDLEY MD This examination was interpreted and the report reviewed and electronically signed by: ANDI MEDLEY MD on Jun 27 2021 4:10PM [facility] DIVISION OF RADIOLOGY * * *Final Report* [...] the thoracic spine. DIVISION OF RADIOLOGY Provider, [facility] - 06/27/2021 * * *Final Report* [...] spine. IMPRESSION IMPRESSION: No acute radiographic abnormality. Machine Filler Shredder: FAWN Transcribe Date/Time: Jun 27 2021 4:09P Dictated by : ANDI MEDLEY MD This examination was interpreted and the report reviewed and electronically signed by: ANDI MEDLEY MD on Jun 27 2021 4:10PM EST [facility] Radiology Study observation (narrative) [facility] XR Chest PA and LateralOrder ed By: Ccf Provider on 06-27-2021 [facility] XR Shoulder - right 2 Viewso n 10-09-2020 IMPRESSION: Degenerative changes of the RIGHT shoulder without acute osseous abnormality. Machine Filler Shredder: FAWN Transcribe Date/Time: Oct 09 2020 12:07P Dictated by : NICOLA HOLMAN MD This examination was interpreted and the report reviewed and electronically signed by: NICOLA HOLMAN MD on Oct 09 2020 12:10PM [facility] DIVISION OF RADIOLOGY * * *Final Report* [...] are clear. [facility] * * *Final [...] the RIGHT shoulder without acute osseous abnormality. Machine Filler Shredder: PSCB Transcribe Date/Time: Oct 09 2020 12:07P Dictated by : NICOLA HOLMAN MD This examination was interpreted and the report reviewed and electronically signed by: NICOLA HOLMAN MD on Oct 09 2020 12:10PM EST [facility] Radiology Study observation (narrative) [facility] XR Shoulder - right 2 ViewsO rdered By: [facility]cf Provider on 10-09-2020 [facility] XR Chest PA and Lateralon IMPRESSION: No definite acute radiographic abnormality. Machine Filler Shredder: PSCB Transcribe Date/Time: Sep 08 2020 9:06A Dictated by : DASH VALDEZ DO This examination was interpreted and the report reviewed and electronically signed by: DASH VALDEZ DO on Sep 08 2020 9:11AM [facility] DIVISION OF RADIOLOGY * * *Final Report* [...] the thoracic spine. DIVISION OF RADIOLOGY Provider, [facility] - 09/08/2020 * * *Final Report* * [...] IMPRESSION IMPRESSION: No definite acute radiographic abnormality. Machine Filler Shredder: PSCBlas Transcribe Date/Time: Sep 08 2020 9:06A Dictated by : DASH VALDEZ DO This examination was interpreted and the report reviewed and electronically signed by: DASH VALDEZ DO on Sep 08 2020 9:11AM EST [facility] Radiology Study observation (narrative) [facility] XR Chest PA and LateralOrder ed By: [facility]cf Provider on 09-08-2020 [facility] ANGIO/ARTHER-EXTREMITY UNILA TERAL [id number] 09-10-2017 ANGIO/ARTHER-EXTREMITY UNILATERAL [id number] Performed at [facility] APPROVED BY: Selene Wilburn MD EXAM [...] utilizing guidewire exchange and Seldinger technique a 5-Khmer sheath was placed. Ultrasound images were obtained of the needle within the artery. A digital subtraction arteriogram of the entrance site was obtained. A 4-Khmer angled glide catheter was used to select [...] other significant vascular abnormalities are identified. Normal [facility] Protimeon 09-10-2017 INR Coag RelTime (PPP) 0.99 {INR} Normal [facility] Comment on above: Result Comment: Ramon dard Therapy 2.0-3.0High Dose 2.5-3.5 Performed By: #### P T ####[place] [address] Prothrombin time (PT) Coag time (PPP) 10.5 s Normal 9.3-11.9 [facility] Comment on above: Performed By: #### P T ####[place] [address] Lab Report: Lipid Profileon 02-08-2017 Cholesterol 132 mg/dL Invalid Interpretation Code [address] [place] [employer] Work Phone: HDL Cholesterol 38 mg/dL Low [place] [employer] [facility] Work Phone: LDL Cholesterol 70 mg/dL Invalid Interpretation Code 0-130 [place] [employer] Work Phone: [phone] Triglyceride 120 mg/dL Invalid Interpretation Code [facility] [employer] Work Phone: [phone] very low density lipoproteins 24 mg/dL Invalid Interpretation Code 5-40 [facility] [employer] Work Phone: [phone] Lab Report: Liver Profileon 02-08-2017 Alanine aminotransferase (ALT) 30 U/L Invalid Interpretation Code 12-78 [facility] [employer] Work Phone: [phone] Albumin 4.0 g/dL Invalid Interpretation Code 3.4-5.0 [facility] [employer] Work Phone: [phone] Alkaline phosphatase (ALP) 107 U/L Inval id Interpretation Code 45-117 [facility] [employer] Work Phone: [phone] Aspartate aminotransferase (AST) 29 U/L Invalid Interpretation Code 15-37 [email or web address] Phone: [phone] Bilirubin (direct) 0.10 mg/dL Invalid Interpretation Code 0.00-0.30 [facility] [employer] Work Phone: [phone] Bilirubin (total) 0.40 mg/dL Invalid Interpretation Code 0.20-1.00 [email or web address] Phone: [phone] Globulin 4.0 g/dL High 2.3-3.5 [facility] [employer] Work Phone: [phone] Protein 8.0 g/dL Invalid Interpretation Code 6.4-8.2 [email or web address] Phone: [phone] Office Visiton 02-07-2017 Documentation of current medications (procedure) Done Invalid Interpretation Code [facility] [employer] Work Phone: [phone] Fall risk assessment No Invalid Interpretation Code [email or web address] Phone: [phone] Clinical Lists Update: Clini ada Noteon 01-16-2017 Left ventricular Ejection fraction 60 % Invalid Interpretation Code [facility] Work Phone: [phone] Lab Report: Basic Metabolic Profile (BMP)on 01-08-2017 Anion gap 8 mmol/L Invalid Interpretation Code 5-15 [facility] Work Phone: [phone] Anion gap molar conc 8 mmol/L 5-15 [facility] Work Phone: [phone] BUN/Creatinine Ratio 15.2 RATIO Invalid Interpretation Code 10-20 [facility] Work Phone: [phone] Calcium 8.8 mg/dL Invalid Interpretation Code 8.5-10.1 [place] [facility] Work Phone: [phone] Chloride 103 mmol/L Invalid Interpretation Code 98-107 [facility] Work Phone: [phone] CO2 28.0 mmol/L Invalid Interpretation Code 21.0-32.0 [facility] Work Phone: [phone] CO2 ppres (BldV) 28.0 mmol/L 21.0-32.0 [facility] Work Phone: [phone] Creatinine 0.86 mg/dL Invalid Interpretation Code 0.70-1.30 [facility] Work Phone: [phone] eGFR (non-black) 96 mL/min/{1.73_m2} Invalid Interpretation Code >60 [facility] Work Phone: [phone] eGFR (non-black) 116 mL/min/{1.73_m2} Invalid Interpretation Code >60 [facility] Work Phone: [phone] EST GFR - AA 116 mL/min >60 [facility] Work Phone: [phone] Glucose 129 mg/dL High 70-110 [facility] Work Phone: [phone] Glucose mass conc 129 mg/dL High 70-110 [facility] Work Phone: [phone] Potassium 4.4 mmol/L Invalid Interpretation Code 3.5-5.1 [facility] Work Phone: [phone] Sodium 139 mmol/L Invalid Interpretation Code 136-145 [facility] Work Phone: [phone] Urea nitrogen 13 mg/dL Invalid Interpretation Code 7-18 [facility] Work Phone: [phone] Lab Report: CBC-Complete Blo od Cnt No Diffon 01-08-2017 Erythrocyte distribution width Ratio (RBC) 39.2 fL 35.1-43.9 [facility] Work Phone: [phone] Erythrocyte distribution width Ratio (RBC) 13.0 % 11.6-14.6 [facility] Work Phone: [phone] Erythrocytes (RBC) 4.75 10*6/uL Invalid Interpretation Code 4.6-6.2 [facility] Work Phone: [phone] Hematocrit (HCT) 39.8 % Low 40-54 [facility] Work Phone: [phone] Hematocrit Volume Fraction (Bld) 39.8 % Low 40-54 [facility] Work Phone: [phone] Hemoglobin (HGB) 13.6 g/dL Invalid Interpretation Code 13.0-16.5 [facility] Work Phone: [phone] MCH 28.6 pg Invalid Interpretation Code 27.0-32.0 [facility] Work Phone: [phone] Entitic mass (RBC) 28.6 pg 27.0-32.0 [facility] Work Phone: [phone] MCHC 34.2 G/GL Invalid Interpretation Code 32-36 [facility] Work Phone: [phone] MCHC mass conc (RBC) 34.2 G/GL 32-[address] [facility] Work Phone: [phone] MCV 83.8 fL Invalid Interpretation Code 80-94 [facility] Work Phone: [phone] MCV Entitic volume (RBC) 83.8 fL 80-94 [facility] Work Phone: [phone] Platelet mean volume Entitic volume (Bld) 9.5 fL 6.2-12.0 [facility] Work Phone: [phone] Platelets 222 10*3/mm3 Invalid Interpretation Code 150-450 [facility] Work Phone: [phone] Platelets #/vol (Bld) 222 10*3/mm3 150-450 [facility] Work Phone: [phone] PMV by Yadira 9.5 fL Invalid Interpretation Code 6.2-12.0 [facility] Work Phone: [phone] RBC #/vol (Bld) 4.75 10*6/uL 4.6-6.2 [facility] Work Phone: [phone] RDW-CA 13.0 % Invalid Interpretation Code 11.6-14.6 [facility] Work Phone: [phone] red blood cell distribution width, size density 39.2 fL Invalid Interpretation Code 35.1-43.9 [facility] Work Phone: [phone] WBC #/vol (Bld) 6.7 10*3/uL 4.4-11.0 [facility] Work Phone: [phone] WBC (Leukocytes) 6.7 10*3/uL Invalid Interpretation Code 4.4-11.0 [facility] Work Phone: [phone] Lab Report: Prothrombin Time w/INRon 01-08-2017 Coagulation tissue factor induced in platelet poor plasma 12.3 s Invalid Interpretation Code 11.7-14.9 [facility] Work Phone: [phone] INR Coag RelTime (PPP) 1.0 {INR} [facility] Work Phone: [phone] INR in blood by coagulation 1.0 {INR} Inva lid Interpretation Code [facility] Work Phone: [phone] Office Visiton 01-08-2017 Documentation of current medications (procedure) Done Invalid Interpretation Code [facility] Work Phone: [phone] Fall risk assessment No [facility] Work Phone: [phone] Protein mass conc Done [facility] Work Phone: [phone] Tobacco smoking status NHIS Never smoker [facility] Work Phone: [phone] Tobacco use CPHS Never smoker Invalid Interpretation Code [facility] Work Phone: [phone] Replaced Document: [facility] E CG Observationson 01-08-2017 EKG QRS axis 26 deg [facility] Work Phone: [phone] electrocardiogram interpretation Sinus Rhythm WITHIN NORMAL LIMITS Invalid Interpretation Code [facility] Work Phone: [phone] GE use only - for [employer] import when terms are not otherwise specified 392 ms Invalid Interpretation Code [facility] Work Phone: [phone] Interpretation Sinus Rhythm WITHIN NORMAL LIMITS [facility] Work Phone: [phone] P [place] 33 deg [facility] Work Phone: [phone] P wave axis, electrocardiogram 33 deg Invalid Interpretation Code [facility] Work Phone: MA Interval 140 ms [facility] Work Phone: MA interval, electrocardiogram 140 ms Invalid Interpretation Code [facility] Work Phone: Pulse (Heart Rate) 81 /min Invalid Interpretation Code [facility] Work Phone: QRS axis, electrocardiogram 26 deg Inva lid Interpretation Code [facility] Work Phone: QRS Duration 94 ms [facility] Work Phone: QRS duration, electrocardiogram 94 ms Invalid Interpretation Code [facility] Work Phone: QT Interval new path ms [facility] Work Phone: QT interval, electrocardiogram new path ms Invalid Interpretation Code [facility] Work Phone: QTc [place] 392 ms [facility] Work Phone: T [place] -1 deg [facility] Work Phone: T wave axis, electrocardiogram -1 deg Invalid Interpretation Code [facility] Work Phone: [phone] Clinical Lists Update: Pre 10-04-2016 HbA1c 12.1 % Invalid Interpretation Code [facility] Work Phone: [phone] Clinical Lists Update[facility] Cholesterol 219 mg/dL [facility] Work Phone: [phone] HDL Cholesterol 141 mg/dL [facility] Work Phone: LDL Cholesterol 36 mg/dL [facility] Work Phone: Triglyceride 211 mg/dL [facility] Work Phone: [phone] Vital Signs Date Time Vital Sign Value Performing Clinician Facility 03-05-2025 15:00-0400 Diastolic blood pressure 72 mm[Hg] Dr. Nadir Grady MD Work Phone: [facility] 03-05-2025 15:00-0400 Heart rate 67 /min Dr. Nadir Grady MD Work Phone: 4(829)012-911008 [place] [address] 03-05-2025 15:00-0400 Respiratory rate 20 /min Dr. Nadir Grady MD Work Phone: 7(937)058-824908 [place] [address] 03-05-2025 15:00-0400 SaO2% (BldA) [Mass fraction] 97 % Dr. Nadir Grady MD Work Phone: 8(377)248-210908 [place] [address] 03-05-2025 15:00-0400 Systolic blood pressure 142 mm[Hg] Dr. Nadir Grady MD Work Phone: 4(158)070-983608 [place] [address] 03-05-2025 14:07-0400 Body temperature 98 [degF] Dr. Nadir Grady MD Work Phone: 1(190)752-612308 [place] [address] 03-05-2025 11:11-0400 Body height 177.[address] Nadir Grady MD Work Phone: 0(929)314-726708 [place] [address] 03-05-2025 11:11-0400 Body mass index (BMI) [Ratio] 24.5 kg/m2 Dr. Nadir Grady MD Work Phone: 0(881)486-122608 [place] [address] 03-05-2025 11:11-0400 Body weight 77.[address] Nadir Grady MD Work Phone: 6(915)643-008108 [place] [address] 02-22-2025 11:06-0400 Body height 177.[address] Nadir Grady MD Work Phone: 3(432)708-122808 [place] [address] 02-22-2025 11:06-0400 Body mass index (BMI) [Ratio] 24.3 kg/m2 Dr. Nadir Grady MD Work Phone: 0(150)123-489108 [place] [address] 02-22-2025 11:06-0400 Body weight 77.[address] Nadir Grady MD Work Phone: 6(405)869-626308 [place] [address] 02-22-2025 11:06-0400 Diastolic blood pressure 69 mm[Hg] Dr. Nadir Grady MD Work Phone: 3(693)187-003308 [place] [address] 02-22-2025 11:06-0400 Heart rate 72 /min Dr. Nadir Grady MD Work Phone: [facility] 02-22-2025 11:06-0400 Respiratory rate 16 /min Dr. Nadir Grady MD Work Phone: [facility] 02-22-2025 11:06-0400 Systolic blood pressure 125 mm[Hg] Dr. Nadir Grady MD Work Phone: [facility] 12-13-2024 09:48-0400 Body mass index (BMI) [Ratio] 25.82 kg/m2 Molly Corrina TRANSMISSION AND COORDINATION ENGINEER.CUSTOMER RELATIONS ASSISTANT Work Phone: [facility] 12-13-2024 09:48-0400 Body weight 78.83 kg Molly Corrina TRANSMISSION AND COORDINATION ENGINEER.CUSTOMER RELATIONS ASSISTANT Work Phone: [facility] 12-13-2024 09:48-0400 Diastolic blood pressure 80 mm[Hg] Molly Corrina TRANSMISSION AND COORDINATION ENGINEER.CUSTOMER RELATIONS ASSISTANT Work Phone: [facility] 12-13-2024 09:48-0400 Heart rate 74 /min Molly Corrina TRANSMISSION AND COORDINATION ENGINEER.CUSTOMER RELATIONS ASSISTANT Work Phone: [facility] 12-13-2024 09:48-0400 Respiratory rate 18 /min Molly Corrina TRANSMISSION AND COORDINATION ENGINEER.CUSTOMER RELATIONS ASSISTANT Work Phone: [facility] 12-13-2024 09:48-0400 SaO2% (BldA) [Mass fraction] 97 % Molly Corrina TRANSMISSION AND COORDINATION ENGINEER.CUSTOMER RELATIONS ASSISTANT Work Phone: [facility] 12-13-2024 09:48-0400 Systolic blood pressure 129 mm[Hg] Molly Corrina TRANSMISSION AND COORDINATION ENGINEER.CUSTOMER RELATIONS ASSISTANT Work Phone: [facility] 12-08-2024 08:17-0400 Body height 177.[address] Nadir Grady MD Work Phone: [facility] 12-08-2024 08:14-0400 Body mass index (BMI) [Ratio] 25 kg/m2 Dr. Nadir Grady MD Work Phone: [facility] 12-08-2024 08:14-0400 Body weight 78.[address] Nadir Grady MD Work Phone: [facility] 12-08-2024 08:14-0400 Diastolic blood pressure 66 mm[Hg] Dr. Nadir Grady MD Work Phone: [facility] 12-08-2024 08:14-0400 Heart rate 77 /min Dr. Nadir Grady MD Work Phone: [facility] 12-08-2024 08:14-0400 Respiratory rate 18 /min Dr. Nadir Grady MD Work Phone: [facility] 12-08-2024 08:14-0400 SaO2% (BldA) [Mass fraction] 96 % Dr. Nadir Grady MD Work Phone: [facility] 12-08-2024 08:14-0400 Systolic blood pressure 122 mm[Hg] Dr. Nadir Grady MD Work Phone: [facility] 10-22-2024 12:55-0500 Body mass index (BMI) [Ratio] 25.99 kg/m2 Molly Corrina TRANSMISSION AND COORDINATION ENGINEER.CUSTOMER RELATIONS ASSISTANT Work Phone: [facility] 10-22-2024 12:55-0500 Body weight 79.38 kg Molly Corrina TRANSMISSION AND COORDINATION ENGINEER.CUSTOMER RELATIONS ASSISTANT Work Phone: [facility] 10-22-2024 12:55-0500 Diastolic blood pressure 76 mm[Hg] Molly Corrina TRANSMISSION AND COORDINATION ENGINEER.CUSTOMER RELATIONS ASSISTANT Work Phone: [facility] 10-22-2024 12:55-0500 Heart rate 72 /min Molly Corrina TRANSMISSION AND COORDINATION ENGINEER.CUSTOMER RELATIONS ASSISTANT Work Phone: [facility] 10-22-2024 12:55-0500 Respiratory rate 18 /min Molly Corrina TRANSMISSION AND COORDINATION ENGINEER.CUSTOMER RELATIONS ASSISTANT Work Phone: [facility] 10-22-2024 12:55-0500 SaO2% (BldA) [Mass fraction] 97 % Molly Corrina TRANSMISSION AND COORDINATION ENGINEER.CUSTOMER RELATIONS ASSISTANT Work Phone: [facility] 10-22-2024 12:55-0500 Systolic blood pressure 131 mm[Hg] Molly Houser CUSTOMER RELATIONS ASSISTANT Work Phone: [facility] 10-07-2024 08:48-0500 Body mass index (BMI) [Ratio] 25.7 kg/m2 Martha Boston PA-C Work Phone: [facility] 10-07-2024 08:48-0500 Body temperature 98.49 [degF] Martha Boston PA-C Work Phone: [facility] 10-07-2024 08:48-0500 Body weight 78.47 kg Martha Boston PA-C Work Phone: [facility] 10-07-2024 08:48-0500 Diastolic blood pressure 70 mm[Hg] Martha Boston PA-C Work Phone: [facility] 10-07-2024 08:48-0500 Heart rate 83 /min Martha Boston PA-C Work Phone: [facility] 10-07-2024 08:48-0500 Respiratory rate 16 /min Martha Boston PA-C Work Phone: [facility] 10-07-2024 08:48-0500 SaO2% (BldA) [Mass fraction] 96 % Martha Boston PA-C Work Phone: [facility] 10-07-2024 08:48-0500 Systolic blood pressure 128 mm[Hg] Martha Boston PA-C Work Phone: [facility] 09-08-2024 12:53-0500 Body height 177.[address] Nadir Grady MD Work Phone: [facility] 09-08-2024 12:53-0500 Body mass index (BMI) [Ratio] 25.4 kg/m2 Dr. Nadir Grady MD Work Phone: [facility] 09-08-2024 12:53-0500 Body weight 80.[address] Nadir Grady MD Work Phone: 8(863)988-087499 [place] [address] 09-08-2024 12:53-0500 Diastolic blood pressure 57 mm[Hg] Dr. Nadir Grady MD Work Phone: 9(948)969-479308 [place] [address] 09-08-2024 12:53-0500 Heart rate 73 /min Dr. Nadir Grady MD Work Phone: 0(703)265-012208 [place] [address] 09-08-2024 12:53-0500 Respiratory rate 18 /min Dr. Nadir Grady MD Work Phone: 3(407)189-153208 [place] [address] 09-08-2024 12:53-0500 SaO2% (BldA) [Mass fraction] 94 % Dr. Nadir Grady MD Work Phone: 4(773)621-753308 [place] [address] 09-08-2024 12:53-0500 Systolic blood pressure 114 mm[Hg] Dr. Nadir Grady MD Work Phone: 6(033)967-926308 [place] [address] 09-06-2024 14:37-0500 Body mass index (BMI) [Ratio] 25.55 kg/m2 Nadir Grady MD Work Phone: 1(290)565-873501 [place] [address] 09-06-2024 14:37-0500 Body weight 78.02 kg Nadir Grady MD Work Phone: 7(053)369-560301 [place] [address] 09-06-2024 14:37-0500 Diastolic blood pressure 74 mm[Hg] Nadir Grady MD Work Phone: 2(235)502-795801 [place] [address] 09-06-2024 14:37-0500 Heart rate 72 /min Nadir Grady MD Work Phone: [facility] 09-06-2024 14:37-0500 Respiratory rate 18 /min Nadir Grady MD Work Phone: 8(637)566-872601 [place] [address] 09-06-2024 14:37-0500 Systolic blood pressure 128 mm[Hg] Nadir Grady MD Work Phone: [facility] 08-27-2024 14:00-0500 Body temperature 98.9 [degF] Dr. Nadir Grady MD Work Phone: 1(157)157-221099 [place] [address] 08-27-2024 14:00-0500 Diastolic blood pressure 66 mm[Hg] Dr. Nadir Grady MD Work Phone: 7(346)337-627408 [place] [address] 08-27-2024 14:00-0500 Heart rate 89 /min Dr. Nadir Grady MD Work Phone: 5(749)116-754508 [place] [address] 08-27-2024 14:00-0500 Respiratory rate 169 /min Dr. Nadir Grady MD Work Phone: 9(307)297-888008 [place] [address] 08-27-2024 14:00-0500 SaO2% (BldA) [Mass fraction] 98 % Dr. Nadir Grady MD Work Phone: 5(949)551-859608 [place] [address] 08-27-2024 14:00-0500 Systolic blood pressure 124 mm[Hg] Dr. Nadir Grady MD Work Phone: 9(662)178-545308 [place] [address] 08-27-2024 09:40-0500 Body mass index (BMI) [Ratio] 23.9 kg/m2 Dr. Nadir Grady MD Work Phone: 4(151)561-903108 [place] [address] 08-27-2024 09:40-0500 Body weight 75.[address] Nadir Grady MD Work Phone: 5(290)347-947208 [place] [address] 08-16-2024 07:04-0500 Body weight 81.[address] Nadir Grady MD Work Phone: 9(228)649-389308 [place] [address] 08-13-2024 09:58-0500 Body mass index (BMI) [Ratio] 25.7 kg/m2 Dr. Nadir Grady MD Work Phone: 8(136)777-494699 [place] [address] 08-12-2024 08:00-0500 Body mass index (BMI) [Ratio] 26.92 kg/m2 Bridget Moomaw TRANSMISSION AND COORDINATION ENGINEER.CUSTOMER RELATIONS ASSISTANT Work Phone: [facility] 08-12-2024 08:00-0500 Body temperature 97.2 [degF] Bridget Moomaw TRANSMISSION AND COORDINATION ENGINEER.CUSTOMER RELATIONS ASSISTANT Work Phone: [facility] 08-12-2024 08:00-0500 Body weight 82.2 kg Bridget Moomaw TRANSMISSION AND COORDINATION ENGINEER.CUSTOMER RELATIONS ASSISTANT Work Phone: [facility] 08-12-2024 08:00-0500 Diastolic blood pressure 74 mm[Hg] Bridget Moomaw TRANSMISSION AND COORDINATION ENGINEER.CUSTOMER RELATIONS ASSISTANT Work Phone: [facility] 08-12-2024 08:00-0500 Heart rate 70 /min Bridget Moomaw TRANSMISSION AND COORDINATION ENGINEER.CUSTOMER RELATIONS ASSISTANT Work Phone: [facility] 08-12-2024 08:00-0500 Respiratory rate 20 /min Bridget Moomaw TRANSMISSION AND COORDINATION ENGINEER.CUSTOMER RELATIONS ASSISTANT Work Phone: [facility] 08-12-2024 08:00-0500 SaO2% (BldA) [Mass fraction] 98 % Bridget Moomaw TRANSMISSION AND COORDINATION ENGINEER.CUSTOMER RELATIONS ASSISTANT Work Phone: [facility] 08-12-2024 08:00-0500 Systolic blood pressure 118 mm[Hg] Bridget Moomaw TRANSMISSION AND COORDINATION ENGINEER.CUSTOMER RELATIONS ASSISTANT Work Phone: [facility] 07-28-2024 08:11-0500 Body mass index (BMI) [Ratio] 25.7 kg/m2 Dr. Nadir Grady MD Work Phone: [facility] 07-28-2024 08:11-0500 Body weight 81.[address] Nadir Grady MD Work Phone: [facility] 07-28-2024 08:11-0500 Diastolic blood pressure 74 mm[Hg] Dr. Nadir Grady MD Work Phone: [facility] 07-28-2024 08:11-0500 Heart rate 72 /min Dr. Nadir Grady MD Work Phone: [facility] 07-28-2024 08:11-0500 Respiratory rate 18 /min Dr. Nadir Grady MD Work Phone: [facility] 07-28-2024 08:11-0500 SaO2% (BldA) [Mass fraction] 97 % Dr. Nadir Grady MD Work Phone: [facility] 07-28-2024 08:11-0500 Systolic blood pressure 126 mm[Hg] Dr. Nadir Grady MD Work Phone: [facility] 07-24-2024 09:20-0500 Body mass index (BMI) [Ratio] 26.82 kg/m2 Bridget Moomaw TRANSMISSION AND COORDINATION ENGINEER.CUSTOMER RELATIONS ASSISTANT Work Phone: [facility] 07-24-2024 09:20-0500 Body temperature 97.7 [degF] Bridget Moomaw TRANSMISSION AND COORDINATION ENGINEER.CUSTOMER RELATIONS ASSISTANT Work Phone: [facility] 07-24-2024 09:20-0500 Body weight 81.9 kg Bridget Moomaw TRANSMISSION AND COORDINATION ENGINEER.CUSTOMER RELATIONS ASSISTANT Work Phone: [facility] 07-24-2024 09:20-0500 Diastolic blood pressure 64 mm[Hg] Bridget Moomaw TRANSMISSION AND COORDINATION ENGINEER.CUSTOMER RELATIONS ASSISTANT Work Phone: [facility] 07-24-2024 09:20-0500 Heart rate 80 /min Bridget Moomaw TRANSMISSION AND COORDINATION ENGINEER.CUSTOMER RELATIONS ASSISTANT Work Phone: [facility] 07-24-2024 09:20-0500 Respiratory rate 16 /min Bridget Moomaw TRANSMISSION AND COORDINATION ENGINEER.CUSTOMER RELATIONS ASSISTANT Work Phone: [facility] 07-24-2024 09:20-0500 SaO2% (BldA) [Mass fraction] 96 % Bridget Moomaw TRANSMISSION AND COORDINATION ENGINEER.CUSTOMER RELATIONS ASSISTANT Work Phone: [facility] 07-24-2024 09:20-0500 Systolic blood pressure 124 mm[Hg] Bridget Moomaw TRANSMISSION AND COORDINATION ENGINEER.CUSTOMER RELATIONS ASSISTANT Work Phone: [facility] 07-20-2024 07:26-0500 Body height 174.7 cm Martha Boston PA-C Work Phone: [facility] 07-20-2024 07:26-0500 Body mass index (BMI) [Ratio] 25.4 kg/m2 Martha Boston PA-C Work Phone: [facility] 07-20-2024 07:26-0500 Body temperature 97.81 [degF] Martha Boston PA-C Work Phone: [facility] 07-20-2024 07:26-0500 Body weight 77.56 kg Martha Boston PA-C Work Phone: [facility] 07-20-2024 07:26-0500 Diastolic blood pressure 62 mm[Hg] Martha Boston PA-C Work Phone: [facility] 07-20-2024 07:26-0500 Heart rate 71 /min Martha Boston PA-C Work Phone: [facility] 07-20-2024 07:26-0500 Respiratory rate 16 /min Martha Boston PA-C Work Phone: [facility] 07-20-2024 07:26-0500 SaO2% (BldA) [Mass fraction] 97 % Martha Boston PA-C Work Phone: [facility] 07-20-2024 07:26-0500 Systolic blood pressure 132 mm[Hg] Martha Boston PA-C Work Phone: [facility] 12-30-2023 08:37-0400 Body height 177.[address] Nadir Grady Work Phone: [facility] 12-30-2023 08:37-0400 Body mass index (BMI) [Ratio] 26.8 kg/m2 Dr. Nadir Grady Work Phone: [facility] 12-30-2023 08:37-0400 Body weight 84.[address] Nadir Grady Work Phone: [facility] 12-30-2023 08:37-0400 Diastolic blood pressure 67 mm[Hg] Dr. Nadir Grady Work Phone: [facility] 12-30-2023 08:37-0400 Heart rate 74 /min Dr. Nadir Grady Work Phone: [facility] 12-30-2023 08:37-0400 Respiratory rate 18 /min Dr. Nadir Grady Work Phone: [facility] 12-30-2023 08:37-0400 SaO2% (BldA) [Mass fraction] 97 % Dr. Nadir Grady Work Phone: [facility] 12-30-2023 08:37-0400 Systolic blood pressure 129 mm[Hg] Dr. Nadir Grady Work Phone: [facility] 12-22-2023 09:11-0400 Body mass index (BMI) [Ratio] 28.08 kg/m2 Karin Hamm TRANSMISSION AND COORDINATION ENGINEER.CUSTOMER RELATIONS ASSISTANT Work Phone: [facility] 12-22-2023 09:11-0400 Body temperature 97.9 [degF] Karin Hamm TRANSMISSION AND COORDINATION ENGINEER.CUSTOMER RELATIONS ASSISTANT Work Phone: [facility] 12-22-2023 09:11-0400 Body weight 86 kg Karin Hamm TRANSMISSION AND COORDINATION ENGINEER.CUSTOMER RELATIONS ASSISTANT Work Phone: [facility] 12-22-2023 09:11-0400 Diastolic blood pressure 64 mm[Hg] Karin Hamm TRANSMISSION AND COORDINATION ENGINEER.CUSTOMER RELATIONS ASSISTANT Work Phone: [facility] 12-22-2023 09:11-0400 Heart rate 78 /min Karin Hamm TRANSMISSION AND COORDINATION ENGINEER.CUSTOMER RELATIONS ASSISTANT Work Phone: [facility] 12-22-2023 09:11-0400 Respiratory rate 16 /min Karin Hamm TRANSMISSION AND COORDINATION ENGINEER.CUSTOMER RELATIONS ASSISTANT Work Phone: [facility] 12-22-2023 09:11-0400 SaO2% (BldA) [Mass fraction] 96 % Karin Hamm TRANSMISSION AND COORDINATION ENGINEER.CUSTOMER RELATIONS ASSISTANT Work Phone: [facility] 12-22-2023 09:11-0400 Systolic blood pressure 108 mm[Hg] Karin Hamm TRANSMISSION AND COORDINATION ENGINEER.CUSTOMER RELATIONS ASSISTANT Work Phone: [facility] 12-19-2023 09:52-0400 Body weight 86.[address] Nadir Grady Work Phone: [facility] 12-04-2023 13:08-0400 Body temperature 97.5 [degF] Dr. Naidr Grady Work Phone: [facility] 12-04-2023 13:08-0400 Diastolic blood pressure 78 mm[Hg] Dr. Nadir Grady Work Phone: 7(675)310-647808 [place] [address] 12-04-2023 13:08-0400 Heart rate 65 /min Dr. Nadir Grady Work Phone: 6(286)012-973008 [place] [address] 12-04-2023 13:08-0400 Respiratory rate 12 /min Dr. Nadir Grady Work Phone: 7(199)515-343908 [place] [address] 12-04-2023 13:08-0400 SaO2% (BldA) [Mass fraction] 98 % Dr. Nadir Grady Work Phone: 1(037)411-089008 [place] [address] 12-04-2023 13:08-0400 Systolic blood pressure 160 mm[Hg] Dr. Nadir Grady Work Phone: 3(339)400-673608 [place] [address] 12-03-2023 19:36-0400 Body height 177.[address] Nadir Grady Work Phone: 5(257)001-298108 [place] [address] 12-03-2023 19:36-0400 Body mass index (BMI) [Ratio] 27.4 kg/m2 Dr. Nadir Grady Work Phone: 8(454)012-638508 [place] [address] 12-03-2023 19:36-0400 Body weight 86.[address] Nadir Grady Work Phone: 5(631)426-531008 [place] [address] 12-03-2023 17:52-0400 Body temperature 98.1 [degF] Dr. Nadir Grady Work Phone: 8(634)720-341208 [place] [address] 12-03-2023 17:52-0400 Diastolic blood pressure 77 mm[Hg] Dr. Nadir Grady Work Phone: 8(086)057-920008 [place] [address] 12-03-2023 17:52-0400 Heart rate 91 /min Dr. Nadir Grady Work Phone: 8(055)859-584208 [facility] [place] [address] 12-03-2023 17:52-0400 Respiratory rate 16 /min Dr. Nadir Grady Work Phone: 1(451)510-478508 [place] [address] 12-03-2023 17:52-0400 SaO2% (BldA) [Mass fraction] 96 % Dr. Nadir Grady Work Phone: 3(520)002-765808 [place] [address] 12-03-2023 17:52-0400 Systolic blood pressure 137 mm[Hg] Dr. Nadir Grady Work Phone: 3(158)549-591708 [place] [address] 12-03-2023 17:43-0400 Body mass index (BMI) [Ratio] 28.4 kg/m2 Dr. Nadir Grady Work Phone: 9(928)700-031608 [place] [address] 12-03-2023 17:43-0400 Body weight 89.[address] Nadir Grady Work Phone: 6(830)757-965108 [place] [address] 12-03-2023 14:14-0400 Body height 177.[address] Nadir Grady Work Phone: 1(479)268-706608 [place] [address] 11-24-2023 07:06-0400 Body height 177.[address] Nadir Grady Work Phone: 4(809)244-470808 [place] [address] 11-24-2023 07:06-0400 Body weight 87.[address] Nadir Grady Work Phone: 6(184)404-844508 [place] [address] 11-21-2023 14:13-0400 Body mass index (BMI) [Ratio] 27.8 kg/m2 Dr. Nadir Grady Work Phone: 1(345)446-829708 [place] [address] 11-19-2023 13:57-0400 Body mass index (BMI) [Ratio] 27.8 kg/m2 Dr. Nadir Grady Work Phone: 7(516)178-404508 [place] [address] 11-19-2023 13:37-0400 Body weight 87.[address] Nadir Grady Work Phone: 9(477)001-637708 [place] [address] 11-19-2023 13:14-0400 Diastolic blood pressure 56 mm[Hg] Dr. Nadir Grady Work Phone: 5(683)003-081108 [place] [address] 11-19-2023 13:14-0400 Heart rate 73 /min Dr. Nadir Grady Work Phone: 7(117)151-911408 [place] [address] 11-19-2023 13:14-0400 SaO2% (BldA) [Mass fraction] 96 % Dr. Nadir Grady Work Phone: 6(089)408-068508 [place] [address] 11-19-2023 13:14-0400 Systolic blood pressure 130 mm[Hg] Dr. Nadir Grady Work Phone: 9(966)637-910808 [place] [address] 10-30-2023 08:59-0500 Body mass index (BMI) [Ratio] 27.8 kg/m2 Dr. Nadir Gardy Work Phone: 1(424)740-428808 [place] [address] 10-30-2023 08:59-0500 Body weight 87.[address] Nadir Grady Work Phone: 8(680)297-597808 [place] [address] 10-30-2023 08:59-0500 Diastolic blood pressure 56 mm[Hg] Dr. Nadir Grady Work Phone: 2(540)803-525508 [place] [address] 10-30-2023 08:59-0500 Heart rate 73 /min Dr. Nadir Grady Work Phone: 1(713)755-079308 [place] [address] 10-30-2023 08:59-0500 Respiratory rate 18 /min Dr. Nadir Grady Work Phone: 2(690)563-905908 [place] [address] 10-30-2023 08:59-0500 SaO2% (BldA) [Mass fraction] 96 % Dr. Nadir Grady Work Phone: 2(159)092-481708 [place] [address] 10-30-2023 08:59-0500 Systolic blood pressure 130 mm[Hg] Dr. Nadir Grady Work Phone: 6(976)309-428608 [place] [address] 10-23-2023 13:44-0500 Body temperature 98.2 [degF] Dr. Nadir Grady Work Phone: 7(288)938-021008 [place] [address] 10-23-2023 13:44-0500 Diastolic blood pressure 67 mm[Hg] Dr. Nadir Grady Work Phone: 2(088)236-852408 [place] [address] 10-23-2023 13:44-0500 Heart rate 60 /min Dr. Nadir Grady Work Phone: 4(996)222-720608 [place] [address] 10-23-2023 13:44-0500 Respiratory rate 18 /min Dr. Nadir Grady Work Phone: [facility] 10-23-2023 13:44-0500 SaO2% (BldA) [Mass fraction] 99 % Dr. Nadir Grady Work Phone: [facility] 10-23-2023 13:44-0500 Systolic blood pressure 129 mm[Hg] Dr. Nadir Grady Work Phone: [facility] 10-23-2023 09:23-0500 Body height 177.[address] Nadir Grady Work Phone: [facility] 10-23-2023 09:23-0500 Body mass index (BMI) [Ratio] 28.4 kg/m2 Dr. Nadir Grady Work Phone: [facility] 10-23-2023 09:23-0500 Body weight 89.[address] Nadir Grady Work Phone: [facility] 10-23-2023 08:57-0500 Body temperature 97.59 [degF] Ruthann Wadsworth APRN.CUSTOMER RELATIONS ASSISTANT Work Phone: [facility] 10-23-2023 08:57-0500 Body weight 89.99 kg Ruthann Wadsworth APRN.CUSTOMER RELATIONS ASSISTANT Work Phone: [facility] 10-23-2023 08:57-0500 Diastolic blood pressure 68 mm[Hg] Ruthann Wadsworth APRN.CUSTOMER RELATIONS ASSISTANT Work Phone: [facility] 10-23-2023 08:57-0500 Heart rate 66 /min Ruthann Wadsworth APRN.CUSTOMER RELATIONS ASSISTANT Work Phone: [facility] 10-23-2023 08:57-0500 Respiratory rate 16 /min Ruthann Wadsworth APRN.CUSTOMER RELATIONS ASSISTANT Work Phone: [facility] 10-23-2023 08:57-0500 SaO2% (BldA) [Mass fraction] 96 % Ruthann Wadsworth APRN.CUSTOMER RELATIONS ASSISTANT Work Phone: [facility] 10-23-2023 08:57-0500 Systolic blood pressure 134 mm[Hg] Ruthann Wadsworth APRN.CNP Work Phone: [facility] 10-15-2023 11:39-0500 Body temperature 97.7 [degF] Dr. Nadir Grady Work Phone: [facility] 10-15-2023 11:39-0500 Diastolic blood pressure 69 mm[Hg] Dr. Nadir Grady Work Phone: [facility] 10-15-2023 11:39-0500 Heart rate 59 /min Dr. Nadir Grady Work Phone: [facility] 10-15-2023 11:39-0500 Respiratory rate 16 /min Dr. Nadir Grady Work Phone: [facility] 10-15-2023 11:39-0500 SaO2% (BldA) [Mass fraction] 94 % Dr. Nadir Grady Work Phone: [facility] 10-15-2023 11:39-0500 Systolic blood pressure 156 mm[Hg] Dr. Nadir Grady Work Phone: 3(353)632-993108 [place] [address] 10-15-2023 08:36-0500 Body height 177.[address] Nadir Grady Work Phone: 6(354)056-147108 [place] [address] 10-15-2023 08:36-0500 Body mass index (BMI) [Ratio] 27.8 kg/m2 Dr. Nadir Grady Work Phone: 9(171)206-908699 [place] [address] 10-15-2023 08:36-0500 Body weight 88.[address] Nadir Grady Work Phone: 0(941)516-276999 [place] [address] 10-11-2023 13:17-0500 Diastolic blood pressure 62 mm[Hg] Dr. Nadir Grady Work Phone: 0(043)033-210799 [place] [address] 10-11-2023 13:17-0500 Heart rate 70 /min Dr. Nadir Grady Work Phone: 2(209)344-594199 [place] [address] 10-11-2023 13:17-0500 Respiratory rate 16 /min Dr. Nadir Grady Work Phone: 6(954)401-763008 [place] [address] 10-11-2023 13:17-0500 SaO2% (BldA) [Mass fraction] 96 % Dr. Nadir Grady Work Phone: 7(996)667-939808 [place] [address] 10-11-2023 13:17-0500 Systolic blood pressure 110 mm[Hg] Dr. Nadir Grady Work Phone: 0(540)605-412708 [place] [address] 10-11-2023 09:05-0500 Body temperature 98.1 [degF] Dr. Nadir Grady Work Phone: 5(399)331-286908 [place] [address] 10-11-2023 06:00-0500 Body mass index (BMI) [Ratio] 28.7 kg/m2 Dr. Nadir Grady Work Phone: 3(746)074-816808 [place] [address] 10-11-2023 06:00-0500 Body weight 90.[address] Nadir Grady Work Phone: 1(852)928-034008 [place] [address] 10-09-2023 23:26-0500 Body height 177.[address] Nadir Grady Work Phone: 8(134)211-829308 [place] [address] 10-09-2023 20:23-0500 Body temperature 97.9 [degF] Dr. Nadir Grady Work Phone: 3(915)135-507808 [place] [address] 10-09-2023 20:23-0500 Diastolic blood pressure 69 mm[Hg] Dr. Nadir Grady Work Phone: 0(557)220-360308 [place] [address] 10-09-2023 20:23-0500 Heart rate 87 /min Dr. Nadir Grady Work Phone: 0(633)989-826508 [place] [address] 10-09-2023 20:23-0500 Respiratory rate 24 /min Dr. Nadir Grady Work Phone: 4(430)466-915808 [place] [address] 10-09-2023 20:23-0500 SaO2% (BldA) [Mass fraction] 93 % Dr. Nadir Grady Work Phone: 6(119)619-515908 [place] [address] 10-09-2023 20:23-0500 Systolic blood pressure 118 mm[Hg] Dr. Nadir Grady Work Phone: [facility] 10-09-2023 18:29-0500 Body mass index (BMI) [Ratio] 34.7 kg/m2 Dr. Nadir Grady Work Phone: [facility] 10-09-2023 18:29-0500 Body weight 109.[address] Nadir Grady Work Phone: [facility] 10-09-2023 18:10-0500 Body height 177.[address] Nadir Grady Work Phone: [facility] 06-26-2023 09:26-0400 Body temperature 97.81 [degF] Fer Merrill TRANSMISSION AND COORDINATION ENGINEER.CUSTOMER RELATIONS ASSISTANT Work Phone: [facility] 06-26-2023 09:26-0400 Body weight 84.46 kg Fer Merrill TRANSMISSION AND COORDINATION ENGINEER.CUSTOMER RELATIONS ASSISTANT Work Phone: [facility] 06-26-2023 09:26-0400 Diastolic blood pressure 80 mm[Hg] Fer Merrill TRANSMISSION AND COORDINATION ENGINEER.CUSTOMER RELATIONS ASSISTANT Work Phone: [facility] 06-26-2023 09:26-0400 Heart rate 72 /min Fer Merrill TRANSMISSION AND COORDINATION ENGINEER.CUSTOMER RELATIONS ASSISTANT Work Phone: [facility] 06-26-2023 09:26-0400 Respiratory rate 16 /min Fer Merrill TRANSMISSION AND COORDINATION ENGINEER.CUSTOMER RELATIONS ASSISTANT Work Phone: [facility] 06-26-2023 09:26-0400 SaO2% (BldA) [Mass fraction] 97 % Fer Merrill TRANSMISSION AND COORDINATION ENGINEER.CUSTOMER RELATIONS ASSISTANT Work Phone: [facility] 06-26-2023 09:26-0400 Systolic blood pressure 142 mm[Hg] Fer Merrill TRANSMISSION AND COORDINATION ENGINEER.CUSTOMER RELATIONS ASSISTANT Work Phone: [facility] 05-15-2023 08:55-0400 Body height 177.[address] Nadir Grady Work Phone: [facility] 05-15-2023 08:55-0400 Body mass index (BMI) [Ratio] 27.1 kg/m2 Dr. Nadir Grady Work Phone: [facility] 05-15-2023 08:55-0400 Body weight 85.[address] Nadir Grady Work Phone: [facility] 05-15-2023 08:55-0400 Diastolic blood pressure 74 mm[Hg] Dr. Nadir Grady Work Phone: [facility] 05-15-2023 08:55-0400 Heart rate 66 /min Dr. Nadir Grady Work Phone: [facility] 05-15-2023 08:55-0400 Respiratory rate 20 /min Dr. Nadir Grady Work Phone: [facility] 05-15-2023 08:55-0400 Systolic blood pressure 157 mm[Hg] Dr. Nadir Grady Work Phone: [facility] 04-01-2023 07:38-0400 Body temperature 97.5 [degF] Blanca Athy PA-C Work Phone: [facility] 04-01-2023 07:38-0400 Body weight 78.93 kg Blanca Athy PA-C Work Phone: [facility] 04-01-2023 07:38-0400 Diastolic blood pressure 74 mm[Hg] Blanca Athy PA-C Work Phone: [facility] 04-01-2023 07:38-0400 Heart rate 68 /min Blanca Athy PA-C Work Phone: [facility] 04-01-2023 07:38-0400 Respiratory rate 16 /min Blanca Athy PA-C Work Phone: [facility] 04-01-2023 07:38-0400 SaO2% (BldA) [Mass fraction] 98 % Blanca Athy PA-C Work Phone: [facility] 04-01-2023 07:38-0400 Systolic blood pressure 142 mm[Hg] Blanca Athy PA-C Work Phone: [facility] 03-10-2023 12:40-0400 Body temperature 98.01 [degF] Ute Rl TRANSMISSION AND COORDINATION ENGINEER.CUSTOMER RELATIONS ASSISTANT Work Phone: [facility] 03-10-2023 12:40-0400 Body weight 79.29 kg Ute Rl TRANSMISSION AND COORDINATION ENGINEER.CUSTOMER RELATIONS ASSISTANT Work Phone: [facility] 03-10-2023 12:40-0400 Diastolic blood pressure 78 mm[Hg] Ute Rl TRANSMISSION AND COORDINATION ENGINEER.CUSTOMER RELATIONS ASSISTANT Work Phone: [facility] 03-10-2023 12:40-0400 Heart rate 71 /min Ute Rl TRANSMISSION AND COORDINATION ENGINEER.CUSTOMER RELATIONS ASSISTANT Work Phone: [facility] 03-10-2023 12:40-0400 Respiratory rate 18 /min Ute Rl TRANSMISSION AND COORDINATION ENGINEER.CUSTOMER RELATIONS ASSISTANT Work Phone: [facility] 03-10-2023 12:40-0400 SaO2% (BldA) [Mass fraction] 99 % Ute Rl TRANSMISSION AND COORDINATION ENGINEER.CUSTOMER RELATIONS ASSISTANT Work Phone: [facility] 03-10-2023 12:40-0400 Systolic blood pressure 136 mm[Hg] Ute Rl TRANSMISSION AND COORDINATION ENGINEER.CUSTOMER RELATIONS ASSISTANT Work Phone: [facility] 11-28-2022 12:33-0400 Body height 175 cm Martha DENISE-C Work Phone: [facility] 11-28-2022 12:33-0400 Body temperature 98.1 [degF] Martha DENISE-C Work Phone: [facility] 11-28-2022 12:33-0400 Body weight 78.47 kg Martha DENISE-C Work Phone: [facility] 11-28-2022 12:33-0400 Diastolic blood pressure 66 mm[Hg] Martha Boston PA-C Work Phone: [facility] 11-28-2022 12:33-0400 Heart rate 66 /min Martha DENISE-C Work Phone: [facility] 11-28-2022 12:33-0400 Respiratory rate 16 /min Martha DENISE-Terence Work Phone: [facility] 11-28-2022 12:33-0400 Systolic blood pressure 136 mm[Hg] Martha DENISE-C Work Phone: [facility] 11-21-2022 09:39-0400 Body temperature 97.5 [degF] Jenna Dahlhausen TRANSMISSION AND COORDINATION ENGINEER.CUSTOMER RELATIONS ASSISTANT Work Phone: [facility] 11-21-2022 09:39-0400 Body weight 79.92 kg Jenna Dahlhausen TRANSMISSION AND COORDINATION ENGINEER.CUSTOMER RELATIONS ASSISTANT Work Phone: [facility] 11-21-2022 09:39-0400 Diastolic blood pressure 70 mm[Hg] Jenna Dahlhausen TRANSMISSION AND COORDINATION ENGINEER.CUSTOMER RELATIONS ASSISTANT Work Phone: [facility] 11-21-2022 09:39-0400 Heart rate 73 /min Jenna Dahlhausen TRANSMISSION AND COORDINATION ENGINEER.CUSTOMER RELATIONS ASSISTANT Work Phone: [facility] 11-21-2022 09:39-0400 Respiratory rate 18 /min Jenna Dahlhausen TRANSMISSION AND COORDINATION ENGINEER.CUSTOMER RELATIONS ASSISTANT Work Phone: [facility] 11-21-2022 09:39-0400 SaO2% (BldA) [Mass fraction] 98 % Jenna Dahlhausen TRANSMISSION AND COORDINATION ENGINEER.CUSTOMER RELATIONS ASSISTANT Work Phone: [facility] 11-21-2022 09:39-0400 Systolic blood pressure 115 mm[Hg] Jenna Dahlhausen TRANSMISSION AND COORDINATION ENGINEER.CUSTOMER RELATIONS ASSISTANT Work Phone: [facility] 11-12-2022 11:29-0400 Body temperature 97.3 [degF] Fer Merrill TRANSMISSION AND COORDINATION ENGINEER.CUSTOMER RELATIONS ASSISTANT Work Phone: [facility] 11-12-2022 11:29-0400 Body weight 80.83 kg Fer Merrill TRANSMISSION AND COORDINATION ENGINEER.CUSTOMER RELATIONS ASSISTANT Work Phone: [facility] 11-12-2022 11:29-0400 Diastolic blood pressure 78 mm[Hg] Fer Merrill TRANSMISSION AND COORDINATION ENGINEER.CUSTOMER RELATIONS ASSISTANT Work Phone: [facility] 11-12-2022 11:29-0400 Heart rate 86 /min Fer Merrill TRANSMISSION AND COORDINATION ENGINEER.CUSTOMER RELATIONS ASSISTANT Work Phone: [facility] 11-12-2022 11:29-0400 Respiratory rate 18 /min Fer Merrill TRANSMISSION AND COORDINATION ENGINEER.CUSTOMER RELATIONS ASSISTANT Work Phone: [facility] 11-12-2022 11:29-0400 SaO2% (BldA) [Mass fraction] 97 % Fer Merrill TRANSMISSION AND COORDINATION ENGINEER.CUSTOMER RELATIONS ASSISTANT Work Phone: [facility] 11-12-2022 11:29-0400 Systolic blood pressure 142 mm[Hg] Fer Merrill TRANSMISSION AND COORDINATION ENGINEER.CUSTOMER RELATIONS ASSISTANT Work Phone: [facility] 10-29-2022 16:10-0500 Body height 177.8 cm Jennifer Savanah PA-C Work Phone: [facility] 10-29-2022 16:10-0500 Body temperature 97.9 [degF] Jennifer Benjamin PA-C Work Phone: [facility] 10-29-2022 16:10-0500 Body weight 81.19 kg Jennifer Savanah PA-C Work Phone: [facility] 10-29-2022 16:10-0500 Diastolic blood pressure 64 mm[Hg] Jennifer Savanah PA-C Work Phone: [facility] 10-29-2022 16:10-0500 Heart rate 82 /min Jennifer Benjamin PA-C Work Phone: [facility] 10-29-2022 16:10-0500 SaO2% (BldA) [Mass fraction] 96 % Jennifer Benjamin PA-C Work Phone: [facility] 10-29-2022 16:10-0500 Systolic blood pressure 124 mm[Hg] Jennifer Savanah PA-C Work Phone: [facility] 10-14-2022 12:30-0500 Diastolic blood pressure 81 mm[Hg] Brian Santiago MD Work Phone: [facility] 10-14-2022 12:30-0500 Heart rate 82 /min Brian Santiago MD Work Phone: [facility] 10-14-2022 12:30-0500 Respiratory rate 20 /min Brian Santiago MD Work Phone: [facility] 10-14-2022 12:30-0500 SaO2% (BldA) [Mass fraction] 97 % Brian Santiago MD Work Phone: [facility] 10-14-2022 12:30-0500 Systolic blood pressure 175 mm[Hg] Brian Santiago MD Work Phone: [facility] 10-14-2022 11:55-0500 Body temperature 97.5 [degF] Brian Santiago MD Work Phone: [facility] 10-14-2022 11:05-0500 Body height 177.8 cm Brian Santiago MD Work Phone: [facility] 10-14-2022 11:05-0500 Body weight 78.93 kg Brian Santiago MD Work Phone: [facility] 10-05-2022 11:43-0500 Body weight 78.93 kg Nadir Grady MD Work Phone: [facility] 10-05-2022 11:43-0500 Diastolic blood pressure 68 mm[Hg] Nadir Grady MD Work Phone: [facility] 10-05-2022 11:43-0500 Heart rate 77 /min Nadir Grady MD Work Phone: [facility] 10-05-2022 11:43-0500 Respiratory rate 16 /min Nadir Grady MD Work Phone: [facility] 10-05-2022 11:43-0500 SaO2% (BldA) [Mass fraction] 96 % Nadir Grady MD Work Phone: [facility] 10-05-2022 11:43-0500 Systolic blood pressure 110 mm[Hg] Nadir Grady MD Work Phone: [facility] 09-23-2022 13:25-0500 Body temperature 97.81 [degF] Miladys Praisler-Wood TRANSMISSION AND COORDINATION ENGINEER.CUSTOMER RELATIONS ASSISTANT Work Phone: [facility] 09-23-2022 13:25-0500 Body weight 81.1 kg Miladys Praisler-Wood TRANSMISSION AND COORDINATION ENGINEER.CUSTOMER RELATIONS ASSISTANT Work Phone: [facility] 09-23-2022 13:25-0500 Diastolic blood pressure 72 mm[Hg] Miladys Praisler-Wood TRANSMISSION AND COORDINATION ENGINEER.CUSTOMER RELATIONS ASSISTANT Work Phone: [facility] 09-23-2022 13:25-0500 Heart rate 75 /min Miladys Praisler-Wood TRANSMISSION AND COORDINATION ENGINEER.CUSTOMER RELATIONS ASSISTANT Work Phone: [facility] 09-23-2022 13:25-0500 Respiratory rate 21 /min Miladys Praisler-Wood TRANSMISSION AND COORDINATION ENGINEER.CUSTOMER RELATIONS ASSISTANT Work Phone: [facility] 09-23-2022 13:25-0500 SaO2% (BldA) [Mass fraction] 98 % Miladys Praisler-Wood TRANSMISSION AND COORDINATION ENGINEER.CUSTOMER RELATIONS ASSISTANT Work Phone: [facility] 09-23-2022 13:25-0500 Systolic blood pressure 152 mm[Hg] Miladys Praisler-Wood TRANSMISSION AND COORDINATION ENGINEER.CUSTOMER RELATIONS ASSISTANT Work Phone: [facility] 09-19-2022 15:25-0500 Body temperature 97.7 [degF] Jenna Dahlhausen TRANSMISSION AND COORDINATION ENGINEER.CUSTOMER RELATIONS ASSISTANT Work Phone: [facility] 09-19-2022 15:25-0500 Body weight 78.65 kg Jenna Dahlhausen TRANSMISSION AND COORDINATION ENGINEER.CUSTOMER RELATIONS ASSISTANT Work Phone: [facility] 09-19-2022 15:25-0500 Diastolic blood pressure 82 mm[Hg] Jenna Dahlhausen TRANSMISSION AND COORDINATION ENGINEER.CUSTOMER RELATIONS ASSISTANT Work Phone: [facility] 09-19-2022 15:25-0500 Heart rate 76 /min Jenna Dahlhausen TRANSMISSION AND COORDINATION ENGINEER.CUSTOMER RELATIONS ASSISTANT Work Phone: [facility] 09-19-2022 15:25-0500 Respiratory rate 16 /min Jenna Dowlingkeyahausen TRANSMISSION AND COORDINATION ENGINEER.CUSTOMER RELATIONS ASSISTANT Work Phone: [facility] 09-19-2022 15:25-0500 SaO2% (BldA) [Mass fraction] 95 % Jennacamila Lamhausen TRANSMISSION AND COORDINATION ENGINEER.CUSTOMER RELATIONS ASSISTANT Work Phone: [facility] 09-19-2022 15:25-0500 Systolic blood pressure 128 mm[Hg] Jenna Niteshkeyahausen TRANSMISSION AND COORDINATION ENGINEER.CUSTOMER RELATIONS ASSISTANT Work Phone: [facility] 08-21-2022 09:03-0500 Body weight 78.02 kg Nadir Grady MD Work Phone: [facility] 08-21-2022 09:03-0500 Diastolic blood pressure 74 mm[Hg] Nadir Grady MD Work Phone: [facility] 08-21-2022 09:03-0500 Heart rate 76 /min Nadir rGady MD Work Phone: [facility] 08-21-2022 09:03-0500 Respiratory rate 16 /min Nadir Grady MD Work Phone: [facility] 08-21-2022 09:03-0500 Systolic blood pressure 128 mm[Hg] Nadir Grady MD Work Phone: [facility] 08-05-2022 12:56-0500 Body height 177.8 cm Mike Lucero MD Work Phone: [facility] 08-05-2022 12:56-0500 Body weight 77.11 kg Mike Lucero MD Work Phone: [facility] 08-05-2022 12:56-0500 Diastolic blood pressure 79 mm[Hg] Mike Lucero MD Work Phone: [facility] 08-05-2022 12:56-0500 Heart rate 73 /min Mike Lucero MD Work Phone: [facility] 08-05-2022 12:56-0500 Respiratory rate 18 /min Mike Lucero MD Work Phone: [facility] 08-05-2022 12:56-0500 Systolic blood pressure 159 mm[Hg] Mike Lucero MD Work Phone: [facility] 07-30-2022 15:28-0500 Body weight 77.11 kg Franny Catalan TRANSMISSION AND COORDINATION ENGINEER.CUSTOMER RELATIONS ASSISTANT Work Phone: [facility] 07-30-2022 15:28-0500 Diastolic blood pressure 70 mm[Hg] Franny Catalan TRANSMISSION AND COORDINATION ENGINEER.CUSTOMER RELATIONS ASSISTANT Work Phone: [facility] 07-30-2022 15:28-0500 Heart rate 78 /min Franny Catalan TRANSMISSION AND COORDINATION ENGINEER.CUSTOMER RELATIONS ASSISTANT Work Phone: [facility] 07-30-2022 15:28-0500 Respiratory rate 16 /min Franny Catalan TRANSMISSION AND COORDINATION ENGINEER.CUSTOMER RELATIONS ASSISTANT Work Phone: [facility] 07-30-2022 15:28-0500 Systolic blood pressure 136 mm[Hg] Franny Catalan TRANSMISSION AND COORDINATION ENGINEER.CUSTOMER RELATIONS ASSISTANT Work Phone: [facility] 06-27-2022 09:25-0400 Body height 177.8 cm Brian Santiago MD Work Phone: [facility] 06-27-2022 09:25-0400 Body temperature 97.39 [degF] Brian Santiago MD Work Phone: [facility] 06-27-2022 09:25-0400 Body weight 71.67 kg Brian Santiago MD Work Phone: [facility] 06-27-2022 09:25-0400 Diastolic blood pressure 62 mm[Hg] Brian Santiago MD Work Phone: [facility] 06-27-2022 09:25-0400 Heart rate 80 /min Brian Santiago MD Work Phone: [facility] 06-27-2022 09:25-0400 SaO2% (BldA) [Mass fraction] 97 % Brian Santiago MD Work Phone: [facility] 06-27-2022 09:25-0400 Systolic blood pressure 110 mm[Hg] Brian Santiago MD Work Phone: [facility] 06-25-2022 07:59-0400 Body temperature 98.71 [degF] Martha Boston PA-C Work Phone: [facility] 06-25-2022 07:59-0400 Body weight 70.76 kg Martha Boston PA-C Work Phone: [facility] 06-25-2022 07:59-0400 Diastolic blood pressure 50 mm[Hg] Martha Boston PA-C Work Phone: [facility] 06-25-2022 07:59-0400 Heart rate 76 /min Martha Boston PA-C Work Phone: [facility] 06-25-2022 07:59-0400 Respiratory rate 16 /min Martha Boston PA-C Work Phone: [facility] 06-25-2022 07:59-0400 Systolic blood pressure 80 mm[Hg] Martha Boston PA-C Work Phone: [facility] 05-28-2022 21:33-0400 Diastolic blood pressure 89 mm[Hg] Dr. Nadir Grady Work Phone: [facility] Work Phone: 05-28-2022 21:33-0400 Heart rate 74 /min Dr. Nadir Grady Work Phone: [facility] Work Phone: 05-28-2022 21:33-0400 Respiratory rate 16 /min Dr. Nadir Grady Work Phone: [facility] Work Phone: 05-28-2022 21:33-0400 SaO2% (BldA) [Mass fraction] 98 % Dr. Nadir Grady Work Phone: [facility] Work Phone: 05-28-2022 21:33-0400 Systolic blood pressure 184 mm[Hg] Dr. Nadir Grady Work Phone: [facility] Work Phone: 05-28-2022 16:02-0400 Body height 177.[address] Nadir Grady Work Phone: [facility] Work Phone: 05-28-2022 16:02-0400 Body mass index (BMI) [Ratio] 23.1 kg/m2 Dr. Nadir Grady Work Phone: [facility] Work Phone: 05-28-2022 16:02-0400 Body temperature 98.2 [degF] Dr. Nadir Grady Work Phone: [facility] Work Phone: 05-28-2022 16:02-0400 Body weight 73.[address] Nadir Grady Work Phone: [facility] Work Phone: 05-13-2022 07:45-0400 Body temperature 98.1 [degF] Martha Boston PA-C Work Phone: [facility] 05-13-2022 07:45-0400 Body weight 73.48 kg Martha Boston PA-C Work Phone: [facility] 05-13-2022 07:45-0400 Diastolic blood pressure 66 mm[Hg] Martha Boston PA-C Work Phone: [facility] 05-13-2022 07:45-0400 Heart rate 72 /min Martha Boston PA-C Work Phone: [facility] 05-13-2022 07:45-0400 Respiratory rate 16 /min Marthaelissa Boston PA-C Work Phone: [facility] 05-13-2022 07:45-0400 Systolic blood pressure 138 mm[Hg] Martha Boston PA-C Work Phone: [facility] 04-25-2022 13:14-0400 Body temperature 97.81 [degF] Rin Gagnon APRN.CNP Work Phone: [facility] 04-25-2022 13:14-0400 Body weight 79.52 kg Rin Gagnon TRANSMISSION AND COORDINATION ENGINEER.CUSTOMER RELATIONS ASSISTANT Work Phone: [facility] 04-25-2022 13:14-0400 Diastolic blood pressure 70 mm[Hg] Rin Gagnon TRANSMISSION AND COORDINATION ENGINEER.CUSTOMER RELATIONS ASSISTANT Work Phone: [facility] 04-25-2022 13:14-0400 Heart rate 86 /min Rin Gagnon TRANSMISSION AND COORDINATION ENGINEER.CUSTOMER RELATIONS ASSISTANT Work Phone: [facility] 04-25-2022 13:14-0400 Respiratory rate 16 /min Rin Gagnon TRANSMISSION AND COORDINATION ENGINEER.CUSTOMER RELATIONS ASSISTANT Work Phone: [facility] 04-25-2022 13:14-0400 SaO2% (BldA) [Mass fraction] 97 % Rin Gagnon TRANSMISSION AND COORDINATION ENGINEER.CUSTOMER RELATIONS ASSISTANT Work Phone: [facility] 04-25-2022 13:14-0400 Systolic blood pressure 109 mm[Hg] Rin Gagnon TRANSMISSION AND COORDINATION ENGINEER.[facility] Work Phone: [facility] 04-24-2022 07:46-0400 Body height 177.[address] Nadir Grady Work Phone: [facility] Work Phone: 04-24-2022 07:46-0400 Body mass index (BMI) [Ratio] 23.9 kg/m2 Dr. Nadir Grady Work Phone: [facility] Work Phone: 04-24-2022 07:46-0400 Body temperature 96.8 [degF] Dr. Nadir Grady Work Phone: [facility] Work Phone: 04-24-2022 07:46-0400 Body weight 75.[address] Nadir Grady Work Phone: [facility] Work Phone: 04-24-2022 07:46-0400 Diastolic blood pressure 72 mm[Hg] Dr. Nadir Grady Work Phone: [facility] Work Phone: 04-24-2022 07:46-0400 Heart rate 83 /min Dr. Nadir Grady Work Phone: [facility] Work Phone: 04-24-2022 07:46-0400 Respiratory rate 16 /min Dr. Nadir Grady Work Phone: [facility] Work Phone: 04-24-2022 07:46-0400 SaO2% (BldA) [Mass fraction] 99 % Dr. Nadir Grady Work Phone: [facility] Work Phone: 04-24-2022 07:46-0400 Systolic blood pressure 134 mm[Hg] Dr. Nadir Grady Work Phone: [facility] Work Phone: 04-19-2022 11:08-0400 Body mass index (BMI) [Ratio] 25.2 kg/m2 Dr. Nadir Grady Work Phone: [facility] Work Phone: 04-19-2022 11:08-0400 Body weight 79.[address] Nadir Grady Work Phone: [facility] Work Phone: 04-19-2022 11:08-0400 Diastolic blood pressure 58 mm[Hg] Dr. Nadir Grady Work Phone: [facility] Work Phone: 04-19-2022 11:08-0400 Heart rate 82 /min Dr. Nadir Grady Work Phone: [facility] Work Phone: 04-19-2022 11:08-0400 Respiratory rate 16 /min Dr. Nadir Grady Work Phone: [facility] Work Phone: 04-19-2022 11:08-0400 Systolic blood pressure 117 mm[Hg] Dr. Nadir Grady Work Phone: [facility] Work Phone: 04-19-2022 08:09-0400 Body temperature 98.2 [degF] Martha Boston PA-C Work Phone: [facility] 04-19-2022 08:09-0400 Body weight 79.83 kg Martha Boston PA-C Work Phone: [facility] 04-19-2022 08:09-0400 Diastolic blood pressure 68 mm[Hg] Martha Boston PA-C Work Phone: [facility] 04-19-2022 08:09-0400 Heart rate 96 /min Martha Boston PA-C Work Phone: [facility] 04-19-2022 08:09-0400 Respiratory rate 18 /min Martha Boston PA-C Work Phone: [facility] 04-19-2022 08:09-0400 Systolic blood pressure 118 mm[Hg] Martha Boston PA-C Work Phone: [facility] 04-15-2022 15:40-0400 Body temperature 97 [degF] Dr. Nadir Grady Work Phone: [facility] Work Phone: 04-15-2022 15:40-0400 Body weight 79.[address] Nadir Grady Work Phone: [facility] Work Phone: 04-15-2022 15:40-0400 Diastolic blood pressure 66 mm[Hg] Dr. Nadir Grady Work Phone: [facility] Work Phone: 04-15-2022 15:40-0400 Heart rate 92 /min Dr. Nadir Grady Work Phone: [facility] Work Phone: 04-15-2022 15:40-0400 Respiratory rate 16 /min Dr. Nadir Grady Work Phone: [facility] Work Phone: 04-15-2022 15:40-0400 SaO2% (BldA) [Mass fraction] 97 % Dr. Nadir Grady Work Phone: [facility] Work Phone: 04-15-2022 15:40-0400 Systolic blood pressure 112 mm[Hg] Dr. Nadir Grady Work Phone: [facility] Work Phone: 03-22-2022 18:46-0400 Diastolic blood pressure 95 mm[Hg] Dr. Nadir Grady Work Phone: [facility] Work Phone: 03-22-2022 18:46-0400 Heart rate 74 /min Dr. Nadir Grady Work Phone: [facility] Work Phone: 03-22-2022 18:46-0400 Respiratory rate 16 /min Dr. Nadir Grady Work Phone: [facility] Work Phone: 03-22-2022 18:46-0400 SaO2% (BldA) [Mass fraction] 99 % Dr. Nadir Grady Work Phone: [facility] Work Phone: 03-22-2022 18:46-0400 Systolic blood pressure 176 mm[Hg] Dr. Nadir Grady Work Phone: [facility] Work Phone: 03-22-2022 13:49-0400 Body height 177.[address] Nadir Grady Work Phone: [facility] Work Phone: 03-22-2022 13:49-0400 Body mass index (BMI) [Ratio] 25.2 kg/m2 Dr. Nadir Grady Work Phone: [facility] Work Phone: 03-22-2022 13:49-0400 Body temperature 98.1 [degF] Dr. Nadir Grady Work Phone: [facility] Work Phone: 03-22-2022 13:49-0400 Body weight 79.[address] Nadir Grady Work Phone: [facility] Work Phone: 02-11-2022 08:44-0400 Body height 177.[address] Nadir Grady Work Phone: [facility] Work Phone: 02-11-2022 08:44-0400 Body weight 78.[address] Nadir Grady Work Phone: [facility] Work Phone: 02-08-2022 08:06-0400 Body mass index (BMI) [Ratio] 24.8 kg/m2 Dr. Nadir Grady Work Phone: [facility] Work Phone: 02-07-2022 07:50-0400 Body temperature 97.81 [degF] Jenna Dahlhausen TRANSMISSION AND COORDINATION ENGINEER.CUSTOMER RELATIONS ASSISTANT Work Phone: [facility] 02-07-2022 07:50-0400 Body weight 78.93 kg Jenna Dahlhausen TRANSMISSION AND COORDINATION ENGINEER.CUSTOMER RELATIONS ASSISTANT Work Phone: [facility] 02-07-2022 07:50-0400 Diastolic blood pressure 60 mm[Hg] Jenna Dahlhausen TRANSMISSION AND COORDINATION ENGINEER.CUSTOMER RELATIONS ASSISTANT Work Phone: [facility] 02-07-2022 07:50-0400 Heart rate 83 /min Jenna Dahlhausen TRANSMISSION AND COORDINATION ENGINEER.CUSTOMER RELATIONS ASSISTANT Work Phone: [facility] 02-07-2022 07:50-0400 Respiratory rate 18 /min Jenna Dahlhausen TRANSMISSION AND COORDINATION ENGINEER.CUSTOMER RELATIONS ASSISTANT Work Phone: [facility] 02-07-2022 07:50-0400 SaO2% (BldA) [Mass fraction] 99 % Jenna Dowlingmicaela TRANSMISSION AND COORDINATION ENGINEER.CUSTOMER RELATIONS ASSISTANT Work Phone: [facility] 02-07-2022 07:50-0400 Systolic blood pressure 122 mm[Hg] Jenna Jim TRANSMISSION AND COORDINATION ENGINEER.CUSTOMER RELATIONS ASSISTANT Work Phone: [facility] 01-04-2022 08:56-0400 Body mass index (BMI) [Ratio] 24.8 kg/m2 Dr. Nadir Grady Work Phone: [facility] Work Phone: 01-04-2022 08:56-0400 Body weight 78.[address] Nadir Grady Work Phone: [facility] Work Phone: 01-04-2022 08:56-0400 Diastolic blood pressure 61 mm[Hg] Dr. Nadir Grady Work Phone: [facility] Work Phone: 01-04-2022 08:56-0400 Heart rate 99 /min Dr. Nadir Grady Work Phone: [facility] Work Phone: 01-04-2022 08:56-0400 Respiratory rate 20 /min Dr. Nadir Grady Work Phone: [facility] Work Phone: 01-04-2022 08:56-0400 Systolic blood pressure 107 mm[Hg] Dr. Nadir Grady Work Phone: [facility] Work Phone: 01-04-2022 08:56-0400 Body height 177.[address] Nadir Grady Work Phone: [facility] Work Phone: 01-04-2022 08:56-0400 Body mass index (BMI) [Ratio] 24.8 kg/m2 Dr. Nadir Grady Work Phone: [facility] Work Phone: 01-04-2022 08:56-0400 Body weight 78.[address] Nadir Grady Work Phone: [facility] Work Phone: 01-04-2022 08:56-0400 Diastolic blood pressure 61 mm[Hg] Dr. Nadir Grady Work Phone: [facility] Work Phone: 01-04-2022 08:56-0400 Heart rate 99 /min Dr. Nadir Grady Work Phone: [facility] Work Phone: 01-04-2022 08:56-0400 Respiratory rate 20 /min Dr. Nadir Grady Work Phone: [facility] Work Phone: 01-04-2022 08:56-0400 Systolic blood pressure 107 mm[Hg] Dr. Nadir Grady Work Phone: [facility] Work Phone: 12-29-2021 21:03-0400 Diastolic blood pressure 80 mm[Hg] Dr. Nadir Grady Work Phone: [facility] Work Phone: 12-29-2021 21:03-0400 Heart rate 83 /min Dr. Nadir Grady Work Phone: [facility] Work Phone: 12-29-2021 21:03-0400 Respiratory rate 17 /min Dr. Nadir Grady Work Phone: [facility] Work Phone: 12-29-2021 21:03-0400 SaO2% (BldA) [Mass fraction] 98 % Dr. Nadir Grady Work Phone: [facility] Work Phone: 12-29-2021 21:03-0400 Systolic blood pressure 143 mm[Hg] Dr. Nadir Grady Work Phone: [facility] Work Phone: 12-29-2021 17:20-0400 Body height 177.[address] Nadir Grady Work Phone: [facility] Work Phone: 12-29-2021 17:20-0400 Body mass index (BMI) [Ratio] 24.9 kg/m2 Dr. Nadir Grady Work Phone: [facility] Work Phone: 12-29-2021 17:20-0400 Body temperature 97.4 [degF] Dr. Nadir Grady Work Phone: [facility] Work Phone: 12-29-2021 17:20-0400 Body weight 78.[address] Nadir Grady Work Phone: [facility] Work Phone: 12-20-2021 09:31-0400 Diastolic blood pressure 40 mm[Hg] Dr. Nadir Grady Work Phone: [facility] Work Phone: 12-20-2021 09:31-0400 Heart rate 100 /min Dr. Nadir Grady Work Phone: [facility] Work Phone: 12-20-2021 09:31-0400 Respiratory rate 20 /min Dr. Nadir Grady Work Phone: [facility] Work Phone: 12-20-2021 09:31-0400 Systolic blood pressure 70 mm[Hg] Dr. Nadir Grady Work Phone: [facility] Work Phone: 12-20-2021 09:31-0400 Diastolic blood pressure 40 mm[Hg] Dr. Nadir Grady Work Phone: [facility] Work Phone: 12-20-2021 09:31-0400 Heart rate 100 /min Dr. Nadir Grady Work Phone: [facility] Work Phone: 12-20-2021 09:31-0400 Respiratory rate 20 /min Dr. Nadir Grady Work Phone: [facility] Work Phone: 12-20-2021 09:31-0400 Systolic blood pressure 70 mm[Hg] Dr. Nadir Grady Work Phone: [facility] Work Phone: 12-13-2021 06:59-0400 Body height 177.[address] Nadir Grayd Work Phone: [facility] Work Phone: 12-13-2021 06:59-0400 Body weight 77.[address] Nadir Grady Work Phone: [facility] Work Phone: 12-12-2021 07:46-0400 Body mass index (BMI) [Ratio] 24.3 kg/m2 Dr. Nadir Grady Work Phone: [facility] Work Phone: 11-12-2021 08:35-0400 Body mass index (BMI) [Ratio] 24.3 kg/m2 Dr. Nadir Grady Work Phone: [facility] Work Phone: 11-12-2021 08:35-0400 Body weight 77.[address] Nadir Grady Work Phone: [facility] Work Phone: 11-12-2021 08:35-0400 Diastolic blood pressure 57 mm[Hg] Dr. Nadir Grady Work Phone: [facility] Work Phone: 11-12-2021 08:35-0400 Heart rate 85 /min Dr. Nadir Grady Work Phone: [facility] Work Phone: 11-12-2021 08:35-0400 Respiratory rate 16 /min Dr. Nadir Grady Work Phone: [facility] Work Phone: 11-12-2021 08:35-0400 Systolic blood pressure 91 mm[Hg] Dr. Nadir Grady Work Phone: [facility] Work Phone: 11-02-2021 10:10-0500 Body mass index (BMI) [Ratio] 24.7 kg/m2 Dr. Nadir Grady Work Phone: [facility] Work Phone: 11-02-2021 10:10-0500 Body temperature 96.9 [degF] Dr. Nadir Grady Work Phone: [facility] Work Phone: 11-02-2021 10:10-0500 Body weight 78.[address] Nadir Grady Work Phone: [facility] Work Phone: 11-02-2021 10:10-0500 Diastolic blood pressure 82 mm[Hg] Dr. Nadir Grady Work Phone: [facility] Work Phone: 11-02-2021 10:10-0500 Heart rate 86 /min Dr. Nadir Grady Work Phone: [facility] Work Phone: 11-02-2021 10:10-0500 Respiratory rate 17 /min Dr. Nadir Grady Work Phone: [facility] Work Phone: 11-02-2021 10:10-0500 SaO2% (BldA) [Mass fraction] 98 % Dr. Nadir Grady Work Phone: [facility] Work Phone: 11-02-2021 10:10-0500 Systolic blood pressure 148 mm[Hg] Dr. Nadir Grady Work Phone: [facility] Work Phone: 10-16-2021 12:49-0500 Diastolic blood pressure 74 mm[Hg] Dr. Nadir Grady Work Phone: [facility] Work Phone: 10-16-2021 12:49-0500 Heart rate 75 /min Dr. Nadir Grady Work Phone: [facility] Work Phone: 10-16-2021 12:49-0500 Respiratory rate 16 /min Dr. Nadir Grady Work Phone: [facility] Work Phone: 10-16-2021 12:49-0500 SaO2% (BldA) [Mass fraction] 100 % Dr. Nadir Grady Work Phone: [facility] Work Phone: 10-16-2021 12:49-0500 Systolic blood pressure 138 mm[Hg] Dr. Nadir Grady Work Phone: [facility] Work Phone: 10-16-2021 10:03-0500 Body mass index (BMI) [Ratio] 24.5 kg/m2 Dr. Nadir Grady Work Phone: [facility] Work Phone: 10-16-2021 10:03-0500 Body temperature 97.7 [degF] Dr. Nadir Grady Work Phone: [facility] Work Phone: 10-16-2021 10:03-0500 Body weight 77.[address] Nadir Grady Work Phone: [facility] Work Phone: 08-16-2021 14:19-0500 Diastolic blood pressure 62 mm[Hg] Dr. Nadir Grady Work Phone: [facility] Work Phone: 08-16-2021 14:19-0500 Heart rate 59 /min Dr. Nadir Grady Work Phone: [facility] Work Phone: 08-16-2021 14:19-0500 Respiratory rate 16 /min Dr. Nadir Grady Work Phone: [facility] Work Phone: 08-16-2021 14:19-0500 SaO2% (BldA) [Mass fraction] 96 % Dr. Nadir Grady Work Phone: [facility] Work Phone: 08-16-2021 14:19-0500 Systolic blood pressure 124 mm[Hg] Dr. Nadir Grady Work Phone: [facility] Work Phone: 08-16-2021 09:30-0500 Body mass index (BMI) [Ratio] 24.5 kg/m2 Dr. Nadir Grady Work Phone: [facility] Work Phone: 08-16-2021 09:30-0500 Body temperature 98.4 [degF] Dr. Nadir Grady Work Phone: [facility] Work Phone: 08-16-2021 09:30-0500 Body weight 77.[address] Nadir Grady Work Phone: [facility] Work Phone: 02-07-2017 09:55-0400 BMI (Body Mass Index) 26.78 kg/m2 Jd Kern MD [facility] Work Phone: 02-07-2017 09:55-0400 BP Diastolic 62 mm[Hg] MD [facility] Work Phone: 02-07-2017 09:55-0400 BP Systolic 108 mm[Hg] MD [facility] Work Phone: 02-07-2017 09:55-0400 Height 180.34 cm Jd Kern MD [facility] Work Phone: 02-07-2017 09:55-0400 Pulse (Heart Rate) 78 /min Jd Kern MD [facility] Work Phone: 02-07-2017 09:55-0400 Respiratory Rate 18 /min Jd Kern MD [facility] Work Phone: 02-07-2017 09:55-0400 Weight 87.09 kg Jd Kern MD [facility] Work Phone: 01-08-2017 14:17-0400 Heart rate 81 /min Beulah Terrell RN [facility] Work Phone: 01-08-2017 13:55-0400 BMI (Body Mass Index) 27.05 kg/m2 [facility] Work Phone: 01-08-2017 13:55-0400 Body weight 88 kg Griselda Bell RN [facility] Work Phone: 01-08-2017 13:55-0400 BP Diastolic 60 mm[Hg] Beulah Terrell RN [facility] Work Phone: 01-08-2017 13:55-0400 BP Systolic 100 mm[Hg] Beulah Terrell RN [facility] Work Phone: 01-08-2017 13:55-0400 Height 180.34 cm Beulah Terrell RN [facility] Work Phone: 01-08-2017 13:55-0400 Pulse (Heart Rate) 81 /min Beulah Terrell RN [facility] Work Phone: 01-08-2017 13:55-0400 Respiratory Rate 20 /min Beulah Terrell RN [facility] Work Phone: 01-08-2017 13:55-0400 Weight 88 kg Beulah Terrell RN [facility] Work Phone: Encounters Encounter Date Encounter Type Care Provider Facility Start: 03-25-2025 ambulatory Nadir Grady Facility :[facility] Start: 03-10-2025 End: 03-10-[address] Nadir Grady MD Work Phone: -Pulmonary Services/Neurology Start: 03-10-2025 End: 03-10-2025 Patient encounter procedure Yolanda DENISE -Pulmonary Services/Neurology Work Phone: Start: 03-10-2025 End: 03-10-2025 ambulatory Nadir Grady Facility:[facility] Start: 03-08-2025 End: 03-08-2025 Telephone encounter Molly Houser APRN.CUSTOMER RELATIONS ASSISTANT Work Phone: Neurology Start: 03-07-2025 End: 03-07-2025 Chart abstracting Nadir Grady MD Work Phone: [facility] [place] Comment on above: Abstract ([facility] ED vis it, without admission) Start: 03-05-2025 End: 03-05-2025 Emergency department patient visit Dr. Nadir Grady MD Work Phone: -Emergency Department Work Phone: Start: 03-03-2025 End: 03-03-2025 Telephone encounter Molly Houser APRN.CUSTOMER RELATIONS ASSISTANT Work Phone: Neurology Start: 02-23-2025 End: 02-23-2025 Refill Nadir Grady MD Work Phone: [facility] [place] Comment on above: Refill Request Start: 02-22-2025 End: 02-22-2025 Chart abstracting Nadir Grady MD Work Phone: [facility] [place] Comment on above: Outside Cardiology Start: 02-22-2025 End: 02-22-[address] Jd Kern MD -[facility] Work Phone: Start: 02-22-2025 End: 02-22-[address] Nadir Grady MD Work Phone: [facility] Work Phone: Start: 01-27-2025 End: 01-27-2025 Refill Nadir Grady MD Work Phone: [address] [place] [address] Comment on above: Refill Request Start: 01-18-2025 End: 01-18-2025 ambulatory MARTHA BOSTON Facility:[facility] Start: 01-18-2025 End: 01-18-2025 ambulatory MARTHA BOSTON Facility:[facility] Start: 12-23-2024 Non-patient / Non-visit Dr. Jered helton MD -[facility] Start: 12-23-2024 End: 12-23-[address] Nadir Grady MD Work Phone: [facility] Work Phone: Start: 12-23-2024 End: 12-23-2024 Patient encounter procedure Yolanda DENISE -Cardiovascular Services Work Phone: Start: 12-23-2024 End: 12-23-2024 ambulatory Nadir Grady Facility:[facility] Start: 12-15-2024 End: 12-15-2024 ambulatory Nirav Wilson [facility] Work Phone: Pharmacy Medicine Start: 12-15-2024 End: 12-15-2024 Patient encounter procedure Nirav Wilson [facility] Work Phone: Pharmacy Medicine Comment on above: Care Coordination (P victoria Management Review for Pharmacist Referral for Diabetes Management) Start: 12-13-2024 End: 12-13-2024 ambulatory MOLLY HOUSER Facility:[facility] Start: 12-13-2024 End: 12-13-2024 Patient encounter procedure Molly Houser TRANSMISSION AND COORDINATION ENGINEER.CUSTOMER RELATIONS ASSISTANT Work Phone: Neurology Comment on above: Obstructive sleep ap kenji (Primary Dx); Insomnia, unspecified type; RLS (restless legs syndrome); Dream enactment behavior; Non-restorative sleep; Frequent nocturnal awakening Start: 12-08-2024 End: 12-08-2024 Patient encounter procedure Yolanda DENISE -[facility] Work Phone: Start: 12-08-2024 End: 12-08-[address] Nadir Grady MD Work Phone: [facility] Work Phone: Start: 12-08-2024 End: 12-08-2024 ambulatory Nadir Grady Facility:[facility] Start: 11-15-2024 End: 11-16-2024 Telephone encounter Molly Houser APRN.CUSTOMER RELATIONS ASSISTANT Work Phone: Neurology Comment on above: Results Start: 11-09-2024 End: 11-09-[address] Nadir Grady MD Work Phone: [facility] Work Phone: Start: 11-09-2024 End: 11-09-2024 Patient encounter procedure Molly Houser ANIMAL ANATOMIST-C -Sleep Lab Work Phone: Start: 11-09-2024 End: 11-09-2024 ambulatory Molly Houser Facility:[facility] Start: 10-25-2024 End: 10-25-2024 Chart abstracting Nadir Grady MD Work Phone: [facility] Comment on above: Outside MRI Start: 10-25-2024 End: 10-25-2024 Ophthalmic examination and evaluation Nadir Grady MD Work Phone: [facility] Start: 10-23-2024 End: 10-23-[address] Hany Paz MD -MRI - [facility] Work Phone: Start: 10-22-2024 End: 10-22-2024 Patient encounter procedure Molly Houser APRN.CUSTOMER RELATIONS ASSISTANT Work Phone: Neurology Comment on above: Dream enactment beha vior (Primary Dx); Snores; RLS (restless legs syndrome); Non-restorative sleep; Excessive daytime sleepiness; Chronic insomnia Start: 10-22-2024 End: 10-23-2024 ambulatory MOLLY HOUSER Facility:[facility] Start: 10-07-2024 End: 10-07-2024 Telephone encounter Martha Boston PA-C Work Phone: [facility] [place] Comment on above: Results Start: 10-07-2024 End: 10-07-2024 Subsequent hospital visit by physician Mri [employer] [facility] W[facility] (I-Stat/1.5t) Work Phone: Radiology Comment on above: Thunderclap headache [G44.53] Start: 10-07-2024 End: 10-07-2024 Office outpatient visit 25 minutes Martha Boston PA-C Work Phone: [facility] [place] Comment on above: Thunderclap headache (Primary Dx); New onset headache Start: 10-07-2024 End: 10-07-2024 ambulatory MARTHA BOSTON Facility:[facility] Start: 09-24-2024 End: 09-24-2024 Chart abstracting Nadir Grady MD Work Phone: [facility] [place] Comment on above: Outside [id number]-[id number] Ordered Start: 09-23-2024 End: 09-23-2024 Chart abstracting Nadir Grady MD Work Phone: [facility] [place] Comment on above: Outside Rcti-Ela-JGN Ordered Start: 09-22-2024 End: 09-22-2024 Chart abstracting Nadir Grady MD Work Phone: [facility] [place] Comment on above: Outside Imaging Start: 09-22-2024 End: 09-22-2024 E-mail encounter from caregiver Karen Piper [facility] Work Phone: [facility] Start: 09-22-2024 End: 09-22-2024 Patient encounter procedure Karen Piper [facility] Work Phone: [facility] Comment on above: Diabetes visit with pharmacist Start: 09-21-2024 End: 09-21-2024 Chart abstracting Nadir Grady MD Work Phone: [facility] [place] Comment on above: Outside Ayfq-Vas-LIJ Ordered Start: 09-20-2024 End: 09-20-[address] Hany Paz MD -Laboratory Work Phone: Start: 09-20-2024 End: 09-20-2024 ambulatory Hany Paz Facility:[facility] Start: 09-08-2024 End: 09-08-2024 Patient encounter procedure Yolanda DENISE -[place] [facility] Work Phone: Start: 09-08-2024 End: 09-08-2024 ambulatory Nadir Grady Facility:[facility] Start: 09-06-2024 End: 09-06-2024 ambulatory NADIR GRADY Facility:[facility] Start: 09-06-2024 End: 09-06-2024 Subsequent hospital visit by physician X[facility] Work Phone: Radiology Comment on above: Abnormal chest x-ray [R93.89] Start: 09-06-2024 End: 09-06-2024 Patient encounter procedure Nadir Grady MD Work Phone: [facility] [place] Comment on above: 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 Juan Luis Rubio DO -Emergency Department Work Phone: Start: 08-21-2024 End: 08-23-2024 Refill Nadir Grady MD Work Phone: [facility] Comment on above: Refill Request Start: 08-17-2024 End: 08-17-2024 Chart abstracting Karla Wadsworth MA [facility] [place] Comment on above: Procedure (Outside r esult - Heart Cath ) Start: 08-17-2024 Non-patient / Non-visit Dr. Sanchez [facility] Start: 08-17-2024 ambulatory Jd Kern Facility:[facility] Start: 08-16-2024 End: 08-16-2024 Admission to same day surgery center Dr. Jd Kern MD -Health Education Coordinator/Special Procedures Work Phone: Start: 08-16-2024 ambulatory Jd Kern Facility:[facility] Start: 08-16-2024 End: 08-16-2024 ambulatory Jd Kern Facility:[facility] Start: 08-12-2024 End: 08-12-2024 ambulatory NADIR Ye [facility] Facility:[facility] Start: 08-12-2024 End: 08-12-2024 Patient encounter procedure Bridget Joseph CUSTOMER RELATIONS ASSISTANT Work Phone: [facility] Comment on above: Adverse effect of ov jo-geh-pokrlrb medication, initial encounter (Primary Dx) Start: 08-10-2024 End: 08-10-2024 Telephone encounter Martha Boston PA-C Work Phone: [facility] [facility] [place] Comment on above: Results Start: 08-09-2024 End: 08-09-2024 ambulatory MARTHA BOSTON Facility:[facility] Start: 08-04-2024 End: 08-04-2024 Telephone encounter Karal Wadsworth MA [facility] [place] Comment on above: Patient Update Start: 07-30-2024 End: 07-30-2024 Chart abstracting Karla Wadsworth MA [facility] [place] Comment on above: Consult (Outside Car diology /) Results (Outside res ults ) Start: 07-28-2024 End: 07-28-2024 Patient encounter procedure Yolanda DENISE -Laboratory Work Phone: Start: 07-28-2024 End: 07-28-2024 Patient encounter procedure Yolanda DENISE -[facility] Work Phone: Start: 07-28-2024 End: 07-28-2024 ambulatory Nadir Grady Facility[facility] Start: 07-28-2024 End: 07-28-2024 ambulatory Yolanda DENISE Facility:[facility] Start: 07-24-2024 End: 07-24-2024 Subsequent hospital visit by physician Ashley [facility] [place] Work Phone: Radiology Comment on above: Wrist pain, right [M 25.531] Start: 07-24-2024 End: 07-24-2024 ambulatory NADIR GRADY Facility:[facility] Start: 07-24-2024 End: 07-24-2024 Patient encounter procedure Bridget Joseph AYAAN Work Phone: [facility] Comment on above: Wrist pain, right (P rimary Dx) Start: 07-21-2024 End: 07-21-2024 Telephone encounter Martha Boston PA-C Work Phone: [facility] Comment on above: Results Start: 07-20-2024 End: 07-20-2024 ambulatory MARTHA BOSTON Facility:[facility] Start: 07-20-2024 End: 07-20-2024 ambulatory MARTHA BOSTON Facility:[facility] Start: 07-20-2024 End: 07-20-2024 Patient encounter [...] Weight loss Start: 06-14-2024 ambulatory Ez Hurst Facility:[facility] Start: 06-14-2024 End: 06-14-2024 ambulatory Yolanda DENISE Facility:[facility] Start: 05-28-2024 End: 05-28-2024 ambulatory Nadir Grady Facility:[facility] Start: 04-19-2024 End: 04-19-2024 Chart abstracting Nadir Grady MD Work Phone: [facility] Comment on above: Outside Cardiology Start: 04-19-2024 End: 04-19-2024 ambulatory Nadir Grady Facility:[facility] Start: 04-11-2024 ambulatory Ez Aris Facility:[facility] Start: 03-10-2024 ambulatory Aydee [facility]ose[facility] Start: 03-10-2024 Patient encounter procedure Aydee Posey MA [facility] Comment on above: Population Health Na vigation Outreach ([facility]) Start: 02-20-2024 Refill Nadir valladares MD Work Phone: [address] [place] [address] Comment on above: Refill Request Start: 01-21-2024 Refill Franny pagan APRN.CUSTOMER RELATIONS ASSISTANT Work Phone: [facility] Comment on above: Refill Request Start: 12-30-2023 Chart abstracting Nadir pope MD Work Phone: [facility] Comment on above: Ext / [facility] Start: 12-30-2023 End: 12-30-[address] Nadir Grady Work Phone: [facility] Work Phone: Start: 12-29-2023 End: 12-30-[address] Nadir Grady Work Phone: [facility] Work Phone: Start: 12-29-2023 End: 12-30-[address] Nadir Grady Work Phone: [facility] Work Phone: Start: 12-22-2023 End: 12-22-2023 Subsequent hospital visit by physician Ashley [facility] Work Phone: Radiology Comment on above: Left forearm pain [M 79.632] Start: 12-22-2023 End: 12-22-2023 Patient encounter procedure Karin Hamm APRN.CUSTOMER RELATIONS ASSISTANT Work Phone: [facility] Comment on above: Left forearm pain (P rimary Dx); Hand pain, left; Contusion of left forearm, initial encounter Start: 12-05-2023 Chart abstracting Nadir pope MD Work Phone: [facility] Comment on above: External / ER Report & H&P hospitalist Start: 12-04-2023 Non-patient / Non-visit Dr. Rajesh Grady Work Phone: [facility] Start: 12-04-2023 Chart abstracting Nadir pope MD Work Phone: [facility] Comment on above: External / [facility] EKG Start: 12-04-2023 Non-patient / Non-visit Dr. Rajesh Grady Work Phone: [facility] Work Phone: Start: 12-03-2023 End: 12-03-2023 Non-patient / Non-visit Dr. Nadri Grady Work Phone: [facility] Work Phone: Start: 12-03-2023 Non-patient / Non-visit Dr. Rajesh Grady Work Phone: [facility] Work Phone: Start: 12-03-2023 End: 12-04-2023 Evaluation and management of inpatient Dr. Nadir Grady Work Phone: [facility] Work Phone: Start: 12-03-2023 End: 12-04-[address] Nadir Grady Work Phone: [facility] Work Phone: Start: 12-01-[address] Mar Grady Work Phone: [facility] Work Phone: Start: 11-28-2023 End: 11-30-[address] Nadir Grady Work Phone: [facility] Work Phone: Start: 11-28-2023 End: 11-30-[address] Nadir Grady Work Phone: [facility] Work Phone: Start: 11-28-[address] Mar Grady Work Phone: [facility] Work Phone: Start: 11-24-2023 End: 11-24-2023 Admission to same day surgery center Dr. Nadir Grady Work Phone: [facility]-Health Education Coordinator/Special Procedures Work Phone: Start: 11-24-2023 End: 11-24-[address] Nadir Grady Work Phone: [facility] Work Phone: Start: 11-19-2023 End: 11-19-[address] Nadir Grady Work Phone: [facility] Work Phone: Start: 11-19-2023 End: 11-19-[address] Nadir Grady Work Phone: [facility] Work Phone: Start: 11-18-2023 Non-patient / Non-visit Dr. Rajesh Grady Work Phone: [facility] Work Phone: Start: 11-11-2023 Non-patient / Non-visit Dr. Rajesh Grady Work Phone: [facility] Start: 11-11-2023 End: 11-11-[address] Nadir Grayd Work Phone: [facility] Work Phone: Start: 10-30-2023 Chart abstracting Nadir pope MD Work Phone: [facility] Comment on above: outside cardiology Start: 10-30-2023 End: 10-30-[address] Nadir Grady Work Phone: [facility] Work Phone: Start: 10-24-2023 Chart abstracting Mynor Rasmussen LPN [facility] Comment on above: [facility] ER report 4 Start: 10-23-2023 Chart abstracting Luis E Cabrera [facility] Comment on above: Outside Imaging Start: 10-23-2023 End: 10-23-2023 Emergency department patient visit Dr. Nadir Grady [facility] Work [facility]: Start: 10-23-2023 End: 10-23-2023 Patient encounter procedure Ruthann Wadsworth APRN.CNP Work Phone: [facility] Comment on above: Lip swelling (Primar y Dx) Start: 10-16-2023 Chart abstracting Nadir pope MD Work Phone: [facility] Comment on above: ER Discharge Summary (X-ray) Start: 10-15-2023 End: 10-15-2023 Emergency department patient visit Dr. Nadir Grady [facility] Work Phone: Start: 10-14-2023 ambulatory [facility] Start: 10-13-2023 Non-patient / Non-visit Dr. Rajesh Grady Work Phone: [facility] Start: 10-13-2023 End: 10-13-[address] Nadir Grady Work Phone: [facility] Work Phone: Start: 10-11-2023 Chart abstracting Nadir pope MD Work Phone: [facility] Comment on above: Outside Cardiology ( Cardiac Cath, Echo) Start: 10-11-2023 Non-patient / Non-visit Dr. Rajesh Grady Work Phone: [facility] Work Phone: Start: 10-11-2023 Non-patient / Non-visit Dr. Rajesh Grady Work Phone: [facility] Start: 10-10-2023 Non-patient / Non-visit Dr. Rajesh Grady Work Phone: [facility] Start: 10-10-2023 Chart abstracting Nadir pope MD Work Phone: [facility] Comment on above: ER Discharge Summary (X-ray, H&P) Start: 10-09-2023 End: 10-09-2023 Non-patient / Non-visit Dr. Nadir Grady Work Phone: [facility] Work Phone: Start: 10-09-2023 Non-patient / Non-visit Dr. Rajesh Grady Work Phone: [facility] Work Phone: Start: 10-09-2023 End: 10-11-2023 Evaluation and management of inpatient Dr. Nadir Grady Work Phone: [facility] Work Phone: Start: 07-10-2023 End: 07-10-[address] Nadir Grady Work Phone: [facility] Work Phone: Start: 06-26-2023 End: 06-26-2023 Patient encounter procedure Fer Merrill APRN.CNP Work Phone: [facility] Comment on above: Mouth pain (Primary Dx) Refill Request Start: 06-26-2023 Telephone encounter Nadir Grady MD Work Phone: [facility] Comment on above: Medication Problem Start: 06-19-2023 Telephone encounter Franny oreilly APRN.CUSTOMER RELATIONS ASSISTANT Work Phone: [facility] Comment on above: Results Start: 06-19-2023 End: 06-19-2023 Patient encounter procedure Odin Reyes MD Work Phone: [facility] Comment on above: Patient left without being seen (Primary Dx); SOB (shortness of breath) Start: 06-09-2023 Non-patient / Non-visit Dr. Rajesh Grady Work Phone: [facility] Work Phone: Start: 06-06-2023 Non-patient / Non-visit Dr. Rajesh Grady Work Phone: [facility] Start: 06-06-2023 End: 06-06-[address] Nadir Grady Work Phone: [facility] Work Phone: Start: 06-06-2023 End: 06-06-[address] Nadir Grady Work Phone: [facility] Work Phone: Start: 05-16-2023 Chart abstracting Nadir pope MD Work Phone: [facility] Comment on above: Outsude cardiology Start: 05-15-2023 End: 05-15-[address] Nadir Grady Work Phone: [facility] Work Phone: Start: 04-11-2023 Telephone encounter Fer heller APRN.CUSTOMER RELATIONS ASSISTANT Work Phone: [facility] Comment on above: Results Start: 04-04-2023 Telephone encounter Fer heller APRN.CUSTOMER RELATIONS ASSISTANT Work Phone: [facility] Comment on above: Results Start: 04-02-2023 Telephone encounter Ruthann Renan MURDOCK.CUSTOMER RELATIONS ASSISTANT Work Phone: [facility] Comment on above: Results Start: 04-01-2023 End: 04-01-2023 Patient encounter procedure Blanca ABRAHAMC Work Phone: [facility] Comment on above: Mouth sores (Primary Dx) Refill Request Start: 03-10-2023 End: 03-10-2023 Patient encounter procedure Ute Shine TRANSMISSION AND COORDINATION ENGINEER.CUSTOMER RELATIONS ASSISTANT Work Phone: [facility] Comment on above: Rash (Primary Dx) Start: 02-04-2023 Telephone encounter Martha pichardo PA-C Work Phone: [facility] [place] Comment on above: Other Refill Request Start: 01-07-2023 Refill Odalis Knutson PSS 4C [employer] tit[employer] Comment on above: Refill Request Start: 11-29-2022 Telephone encounter Martha pichardo PA-C Work Phone: [facility] [place] Comment on above: Results Start: 11-28-2022 End: 11-28-2022 Patient encounter procedure Martha Boston PA-C Work Phone: [facility] [place] Comment on above: Medicare [...] End: 11-21-2022 Patient encounter procedure Jenna Jim TRANSMISSION AND COORDINATION ENGINEER.CUSTOMER RELATIONS ASSISTANT Work Phone: Neurology Comment on above: Syncope, unspecified syncope type (Primary Dx); Orthostatic hypotension Start: 11-12-2022 End: 11-12-2022 Patient encounter procedure Fer Merrill APRN.CUSTOMER RELATIONS ASSISTANT Work Phone: [facility] Comment on above: Rhus dermatitis (Valeria yovanny Dx) Start: 11-08-2022 Telephone encounter Lemuel Troy MD Work Phone: Neurology Comment on above: Appointment Start: 11-05-2022 Refill Nadir valladares MD Work Phone: [facility] [place] Comment on above: Refill Request Start: 10-29-2022 End: 10-29-2022 Patient encounter procedure Jennifer Pavon PA-C Work Phone: General Surgery Comment on above: Long-segment Santos 's esophagus (Primary Dx); Hiatal hernia; Diverticulosis; Other gastritis without bleeding Start: 10-23-2022 Chart abstracting Nadir pope MD Work Phone: [facility] [place] Comment on above: Consult (Consult Car diology ) Start: 10-14-2022 ambulatory [facility] Start: 10-14-2022 End: 10-14-2022 Subsequent hospital visit by physician Brian Santiago MD Work Phone: [facility] Comment on above: Anemia, unspecified type [D64.9] Start: 10-04-2022 End: 10-04-2022 Patient encounter procedure Nadir Grady MD Work Phone: [facility] [place] Comment on above: Type 2 diabetes ben itus with diabetic neuropathy, without long-term current use of insulin (HCC) (Primary Dx); Essential hypertension, benign Start: 10-02-2022 Refill Nadir valladares MD Work Phone: [facility] [place] Comment on above: Refill Request Start: 09-24-2022 Telephone encounter Nadir Grady MD Work Phone: [facility] [place] Comment on above: Medication Question Start: 09-23-2022 End: 09-23-2022 Subsequent hospital visit by physician Ashley [facility] [place] Work Phone: Radiology Comment on above: Foot injury, left, i nitial encounter [S99.922A] Start: 09-23-2022 End: 09-23-2022 Patient encounter procedure Miladys Butt APRN.CUSTOMER RELATIONS ASSISTANT Work Phone: [facility] Comment on above: Foot injury, left, i nitial encounter (Primary Dx) Start: 09-19-2022 End: 09-19-2022 Patient encounter procedure Jenna Jim COLLETTE.CUSTOMER RELATIONS ASSISTANT Work Phone: Neurology Comment on above: Syncope, unspecified syncope type (Primary Dx); Orthostatic hypotension Start: 09-05-2022 Telephone encounter Nadir Grady MD Work Phone: [facility] [place] Comment on above: low blood pressure Start: 08-30-2022 Refill Nadir valladares MD Work Phone: [facility] [place] Comment on above: Refill Request Start: 08-28-2022 Telephone encounter Nadir Grady MD Work Phone: [facility] [place] Comment on above: Patient Update Start: 08-22-2022 Telephone encounter Nadir Grady MD Work Phone: [facility] Comment on above: Patient Update Start: 08-21-2022 Telephone encounter Nadir Grady MD Work Phone: [facility] [place] Comment on above: Results Start: 08-21-2022 End: 08-21-2022 Patient encounter procedure Nadir Grady MD Work Phone: [facility] [place] Comment on above: Dizziness (Primary D x); Tremor; Hypotension, unspecified hypotension type; Panic disorder; Situational depression; Atypical chest pain; Iron deficiency anemia, unspecified iron deficiency anemia type Start: 08-06-2022 Refill Nadir valladares MD Work Phone: [facility] [place] Comment on above: Refill Request Start: 08-05-2022 End: 08-05-2022 Patient encounter procedure Mike Lucero MD Work Phone: Urology Comment on above: Bladder wall thicken ing (Primary Dx); Benign non-nodular prostatic hyperplasia without lower urinary tract symptoms Start: 07-30-2022 End: 07-30-2022 Patient encounter procedure Franny Catalan APRN.CUSTOMER RELATIONS ASSISTANT Work Phone: [facility] [place] Comment on above: Type 2 diabetes ben itus with diabetic neuropathy, without long-term current use of insulin (HCC) (Primary Dx) Start: 07-29-2022 Telephone encounter Nadir Grady MD Work Phone: [facility] [place] Comment on above: Appointment Start: 07-12-2022 Telephone encounter Mike summers MD Work Phone: Urology Comment on above: Patient Update; Appo intment Start: 07-11-2022 Telephone encounter Martha Ro binson PA-C Work Phone: [facility] [place] Comment on above: Results Start: 07-10-2022 Telephone encounter Martha Ro binson PA-C Work Phone: [facility] [place] Comment on above: Results Consult Start: 07-09-2022 End: 07-09-2022 Subsequent hospital visit by physician [facility] Comment on above: Abnormal weight loss [R63.4] Start: 07-05-2022 Refill Martha Randall on PA-C Work Phone: [facility] [place] Comment on above: Refill Request Start: 07-02-2022 Telephone encounter Martha Rae paganon PA-C Work Phone: [facility] [place] Comment on above: Results Start: 07-01-2022 End: 07-01-2022 [facility] Work Phone: Rad[facility] Comment on above: Abnormal weight loss [R63.4] Start: 06-27-2022 Telephone encounter Martha Ro ejon PA-C Work Phone: [facility] [place] Comment on above: Results Start: 06-27-2022 End: 06-27-2022 Patient encounter procedure Brian Santiago MD Work Phone: General Surgery Comment on above: Anemia, unspecified type Start: 06-26-2022 Telephone encounter Marthaelissa paganon PA-C Work Phone: [facility] [place] Comment on above: Results Start: 06-25-2022 Telephone encounter Nadir Grady MD Work Phone: [facility] [place] Comment on above: [facility] Start: 06-25-2022 End: 06-25-2022 Subsequent hospital visit by physician Xr [facility] [place] Work Phone: Radiology Comment on above: Abnormal weight loss [R63.4] Start: 06-25-2022 End: 06-25-2022 Patient encounter procedure Martha Boston PA-C Work Phone: [facility] [place] Comment on above: Abnormal weight loss (Primary Dx); Muscle mass; Intractable chronic post-traumatic headache; Neuropathy; Situational depression; Fatigue, unspecified type; Myalgia Start: 06-18-2022 Telephone encounter Nadir Grady MD Work Phone: [facility] [place] Comment on above: Medication Problem; Patient Update Start: 05-30-2022 Telephone encounter Rin ricardo APRN.CUSTOMER RELATIONS ASSISTANT Work Phone: Neurology Comment on above: Medication Problem Start: 05-29-2022 Telephone encounter Nadir Grady MD Work Phone: [facility] Comment on above: requesting A1C resul ts Start: 05-28-2022 End: 05-28-2022 Emergency department patient visit Dr. Nadir Grady Work Phone: [facility] Start: 05-28-2022 End: 05-28-2022 Patient encounter procedure Karin Hansel TRANSMISSION AND COORDINATION ENGINEER.CUSTOMER RELATIONS ASSISTANT Work Phone: [facility] Comment on above: Injury of head, init ial encounter (Primary Dx); LOC (loss of consciousness) (HCC) Start: 05-28-2022 Telephone encounter Nadir Grady MD Work Phone: [facility] [place] Comment on above: Patient Update Start: 05-20-2022 Telephone encounter Nadir Grady MD Work Phone: [facility] [place] Comment on above: Medication concern; Medication Problem Start: 05-14-2022 Telephone encounter Martha pichardo PA-C Work Phone: [facility] Comment on above: Results Start: 05-13-2022 End: 05-13-2022 Patient encounter procedure Martha Boston PA-C Work Phone: [facility] Comment on above: Encounter for immuni zation (Primary Dx); Type 2 diabetes mellitus with diabetic neuropathy, without long-term current use of insulin (HCC); Essential hypertension, benign; Mixed hyperlipidemia; Coronary atherosclerosis due to lipid rich plaque; GERD without esophagitis; Carotid stenosis, asymptomatic, bilateral; Migraine variant; Adjustment disorder with depressed mood Start: 05-03-2022 Refill Nadir valladares MD Work Phone: [facility] Comment on above: Refill Request Start: 05-01-2022 Telephone encounter Nadir Grady MD Work Phone: [facility] Comment on above: Medication Question Start: 04-27-2022 ambulatory Nadir valladares MD Work Phone: [facility] Comment on above: Discontinue amitript yline 150mg Start: 04-26-2022 Telephone encounter Nadir Grady MD Work Phone: [facility] Comment on above: Patient Update Start: 04-25-2022 End: 04-25-2022 Patient encounter procedure Rin Gagnon APRN.CNP Work Phone: Neurology Comment on above: Orthostatic hypotens ion (Primary Dx); Occipital neuralgia of right side; Neuropathy; Syncope and collapse Start: 04-24-2022 End: 04-24-[address] Nadir Grady Work Phone: [facility] Work Phone: Start: 04-24-2022 End: 04-24-[address] Nadir Grady Work Phone: [facility]Medical Out Start: 04-19-2022 End: 04-19-[address] Nadir Grady Work Phone: [facility] [place] [facility] Start: 04-19-2022 End: 04-19-2022 Office outpatient visit 25 minutes Martha Boston PA-C Work Phone: [facility] Comment on above: Situational depressi on (Primary Dx); Panic disorder Start: 04-17-2022 End: 04-17-[address] Nadir Grady Work Phone: [facility]Laboratory Start: 04-15-2022 End: 04-15-[address] Nadir Grady Work Phone: [facility] Endocrinology Start: 04-08-2022 Telephone encounter Jenna Lazo APRN.CUSTOMER RELATIONS ASSISTANT Work Phone: Neurology Comment on above: Patient Question Start: 04-03-2022 Refill Rashawn SIDHU RN.CUSTOMER RELATIONS ASSISTANT Work Phone: [facility] Comment on above: Refill Request Start: 03-25-2022 Refill Nadir valladares MD Work Phone: [facility] Comment on above: Refill Request Start: 03-22-2022 End: 03-22-2022 Emergency department patient visit Dr. Nadir Grady Work Phone: [facility] Start: 03-20-2022 Telephone encounter Jenna Lazo APRN.CUSTOMER RELATIONS ASSISTANT Work Phone: Neurology Comment on above: Results - Ct Start: 03-19-2022 End: 03-19-2022 Subsequent hospital visit by physician [facility] (I-Stat) Work Phone: Cat Scan Comment on above: Injury of head, init ial encounter [S09.90XA] Start: 03-18-2022 Telephone encounter Jenna Lazo APRN.CUSTOMER RELATIONS ASSISTANT Work Phone: Neurology Comment on above: Patient Update (Rece nt fall) Start: 02-26-2022 Refill Nadir valladares MD Work Phone: [facility] Comment on above: Refill Request (SEE RX NOTE) Start: 02-19-2022 Telephone encounter Lemuel Troy MD Work Phone: [facility] [place] Comment on above: Question Start: 02-13-[address] Mar Grady Work Phone: [facility] Start: 02-11-2022 End: 02-11-2022 Admission to same day surgery center Dr. Nadir Grady Work Phone: [facility]-Health Education Coordinator/Special Procedures Start: 02-11-2022 Non-patient / Non-visit Dr. Rajesh Grady Work Phone: [facility] Start: 02-07-2022 End: 02-07-2022 Patient encounter procedure Jenna Jim APRN.CNP Work Phone: Neurology Comment on above: Syncope, unspecified syncope type (Primary Dx); Orthostatic hypotension; Facial numbness; Injury of head, sequela; Chronic post-traumatic headache, not intractable Start: 02-04-2022 End: 02-04-[address] Nadir Grady Work Phone: [facility] Start: 01-31-2022 Non-patient / Non-visit Dr. Rajesh Grady Work Phone: [facility] Start: 01-30-2022 Refill Nadir valladares MD Work Phone: [facility] Comment on above: Refill Request Start: 01-24-2022 Telephone encounter Nadir Grady MD Work Phone: [facility] Comment on above: Release Of Medical R ecords Start: 01-18-2022 Non-patient / Non-visit Dr. Rajesh Grady Work Phone: [facility] Start: 01-18-2022 End: 01-18-[address] Nadir Grady Work Phone: [facility] Start: 01-17-2022 End: 01-17-[address] Nadir Grady Work Phone: [facility] Start: 01-04-2022 Chart abstracting Nadir pope MD Work Phone: [facility] Comment on above: outside cardiology Start: 01-04-2022 End: 01-04-[address] Nadir Grady Work Phone: [facility] Start: 01-01-2022 Non-patient / Non-visit Dr. Rajesh Grady Work Phone: [facility] Start: 12-30-2021 End: 12-30-[address] Nadir Grady Work Phone: [facility] Start: 12-29-2021 End: 12-29-2021 Emergency department patient visit Dr. Nadir Grady Work Phone: [facility] Start: 12-26-2021 End: 12-26-[address] Nadir Grady Work Phone: [facility] Start: 12-20-2021 End: 12-20-[address] Nadir Grady Work Phone: [facility] Start: 12-18-2021 End: 12-18-[address] Nadir Grady Work Phone: [facility] Start: 12-13-2021 Telephone encounter Karen castillo [facility] Work Phone: [facility] Comment on above: Medication Problem Start: 12-13-2021 End: 12-13-2021 Admission to same day surgery center Dr. Nadir Grady Work Phone: [facility]Health Education Coordinator/Special Procedures Start: 11-22-2021 Telephone encounter Nadir Grady MD Work Phone: [facility] Comment on above: Results Start: 11-12-2021 End: 11-12-[address] Nadir Grady Work Phone: [facility] Start: 11-08-2021 Patient encounter procedure Nadir Grady MD Work Phone: [facility] Work Phone: Start: 11-02-2021 End: 11-02-2021 Emergency department patient visit Dr. Nadir Grady Work Phone: [facility] Start: 10-18-2021 End: 10-18-[address] Nadir Grady Work Phone: [facility]/Neurology Start: 10-16-2021 End: 10-16-2021 Emergency department patient visit Dr. Nadir Grady Work Phone: [facility] Start: 10-16-2021 Non-patient / Non-visit Dr. Rajesh Grady Work Phone: [facility] Start: 08-16-[address] Nadir Grady Work Phone: [facility] Start: 06-29-2021 Telephone encounter Ade hollins APRN.CNP Work Phone: [facility] Comment on above: Results Start: 06-27-2021 End: 06-27-2021 Subsequent hospital visit by physician [facility] Work Phone: Radiology Comment on above: SOB (shortness of br eath) [R06.02] Start: 01-09-2021 Ophthalmic examinati on and evaluation Nadir Grady MD Work Phone: [facility] Start: 10-09-2020 End: 10-09-2020 Subsequent hospital visit by physician [facility] Work Phone: Radiology Comment on above: Acute pain of right shoulder [M25.511] Start: 09-08-2020 End: 09-08-2020 Subsequent hospital visit by physician Ashley [facility] [place] Work Phone: Radiology Comment on above: Rib pain on left eulalio e [R07.81] Start: 09-10-2017 End: 09-10-2017 Evaluation and management of inpatient SELENE WILBURN Facility:[facility] Start: 10-03-2016 End: 04-12-2020 Patient encounter status Karin Hamm TRANSMISSION AND COORDINATION ENGINEER.CUSTOMER RELATIONS ASSISTANT Work Phone: [facility] Procedures Date Procedure Procedure Detail Performing Clinician [...] History of coronary artery stent placement Yolanda Dean PA Comment on above: PCI-RODYD-Mid LAD w/ 2.5 x 16 mm Synergy S tent and RODDY-Mid Ramus w/ 2.25 x 16 mm Synergy MR 01/20/2017; KXN-[id number]-Yhfsnp LCx w/ 2.25 x 08 mm Synergy MR Stent 05/10/2020; SGP-IXQ-[id number] LCx w/ 2.5 x 12 mm Synergy Stent 11/20/20; PCI-RODDY-Mid RCA w/ 3.0 x 9 mm Orsiro Stent and POBA- distal RCA 04/26/21; [id number]-[id number]-EOO-Prox LCx w/ 2.5 x 9 mm Orsiro Stent 07/23/21, PTCA/RODDY Prox and Mid RCA using [place] and RODDY distal RCA using Drake Sorento 3.0x12 mm, 2.5x12 mm and 2.5x8 mm 10/10/23; 3.5 X 12 Drake Sorento RODDY to Proximal RCA Start: 07-28-2024 X-ray of chest, PA and lateral views Dr. Nadir Grady MD Work Phone: Start: 07-28-2024 Evaluation of diagnostic study results Dr. Nadir Grady MD Work Phone: Start: 07-24-2024 Radex wrist complete minimum 3 views Bridget Moomaw TRANSMISSION AND COORDINATION ENGINEER.CUSTOMER RELATIONS ASSISTANT Work Phone: Start: 07-20-2024 Adult depression screening assessment Martha Boston PA-C Work Phone: Start: 12-22-2023 Radex forearm 2 views Karin Hamm TRANSMISSION AND COORDINATION ENGINEER.CUSTOMER RELATIONS ASSISTANT Work Phone: Start: 12-04-2023 Cardiovascular stress [...] Work Phone: Start: 10-14-2022 Esophagogastroduodenoscopy transoral diagnostic Brian Santiago MD Work Phone: Start: 10-14-2022 Colonoscopy flx dx w/collj spec when pfrmd Brian Santiago MD Work Phone: Start: 10-14-2022 End: 10-14-2022 Gluc bld gluc mntr dev cleared fda spec home use Hany Nina MD Work Phone: Start: 10-14-2022 Colonoscopy Brian Santiago MD Work Phone: Start: 09-23-2022 Radex foot complete minimum 3 views Miladys Butt APRN.CUSTOMER RELATIONS ASSISTANT Work Phone: Start: 08-05-2022 Urnls dip stick/tablet rgnt auto w/o microscopy Mike Lucero MD Work Phone: Start: 07-09-2022 Ct abdomen & pelvis w/contrast material Martha ABRAHAMC Work Phone: Start: 07-09-2022 Ct thorax w/contrast material Martha DENISE-C Work Phone: Start: 07-01-2022 Us abdominal real time w/image limited Martha DENISE-C Work Phone: Start: 06-25-2022 Radiologic exam chest 2 views Martha DENISE-C Work Phone: Start: 05-28-2022 Plain chest X-ray [...] 03-22-2022 X-ray of lumbosacral spine Dr. Nadir vidal Work Phone: Start: 03-22-2022 CT of head without contrast Dr. Nadir Grady Work Phone: Start: 03-19-2022 Ct head/brain w/o contrast material Jenna Jim APRN.CNP Work Phone: Start: 02-04-2022 Plain chest X-ray [...] 06-27-2021 Radiologic exam chest 2 views Ade Jenny hollins TRANSMISSION AND COORDINATION ENGINEER.CUSTOMER RELATIONS ASSISTANT Work Phone: Start: 10-09-2020 Radex shoulder complete minimum 2 views Juan Luis Leah TRANSMISSION AND COORDINATION ENGINEER.CUSTOMER RELATIONS ASSISTANT, DNP Work Phone: Start: 09-08-2020 Radiologic exam chest 2 views Bruce obregon TRANSMISSION AND COORDINATION ENGINEER.CUSTOMER RELATIONS ASSISTANT Work Phone: Start: 02-07-2017 End: 02-10-2017 [...] Jd Kern MD Start: 01-08-2017 End: 02-07-2017 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 Jd Kern MD Start: 01-08-2017 End: 01-16-2017 [...] Activity Detail Author Start: 10-14-2032 Colonoscopy COLONOSCOPY [facility] Start: 10-14-2032 COLORECTAL CANCER SCREENING COLORECTAL CANCER SCREENING [facility] Start: 10-14-2032 Screening for malign ant neoplasm of colon [facility] Start: 03-01-2031 Urine microalbumin profile [facility] Start: 10-18-2029 Urine microalbumin profile DTA P,TDAP,TD (3 - Td or Tdap) [facility] Start: 11-02-2026 PROSTATE CANCER SCRE ENING DISCUSSION PROSTATE CANCER SCREENING DISCUSSION [facility] Start: 01-18-2026 Annual PCP Team Executive Sous Chef bernarda Disease Visit Annual PCP Team Chronic Disease Visit [facility] Start: 01-18-2026 BP Controlled (<130/80) BP Controlle d (<130/80) [facility] Start: 01-18-2026 Diabetic foot examination Diabetic F oot Exam [facility] Start: 01-18-2026 Hepatitis B screening Urine Albumin:Creatinine Ratio [facility] Start: 01-18-2026 Hepatitis B surface antibody level LDL Cholesterol [facility] Start: 10-25-2025 Glaucoma screening Dilated Retinal E xam [facility] Start: 10-07-2025 Annual PCP Team Executive Sous Chef bernarda Disease Visit Annual PCP Team Chronic Disease Visit [facility] Start: 10-07-2025 BP Controlled (<130/80) BP Controlle d (<130/80) [facility] Start: 09-06-2025 Annual PCP Team Executive Sous Chef bernarda Disease Visit Annual PCP Team Chronic Disease Visit [facility] Start: 09-06-2025 BP Controlled (<130/80) BP Controlle d (<130/80) [facility] Start: 08-12-2025 BP Controlled (<130/80) BP Controlle d (<130/80) [facility] Start: 07-26-2025 End: 07-26-2025 Patient encounter procedure 07/26/2025 8:00 AM EST Office Visit [facility] [place] [address] [place], [place] [id number] Nadir Grady MD [address] [place], [place] [address] Medicare Wellness [facility] [place] Comment on above: Medicare Wellness Start: 07-24-2025 BP Controlled (<130/80) BP Controlle d (<130/80) [facility] Start: 07-21-2025 Hemoglobin A1c measurement HbA1C [facility] Start: 07-20-2025 Annual PCP Team Executive Sous Chef bernarda Disease Visit Annual PCP Team Chronic Disease Visit [facility] Start: 07-20-2025 Anxiety Screening Anxiety Screening [facility] Start: 07-20-2025 Covid-19 Vaccine ( season) Covid-19 Vaccine () [facility] Comment on above: Postponed from 05/02 (Declined at this time) Start: 07-20-2025 Depression Screening Depression Scre ening [facility] Start: 07-20-2025 Diabetic foot examination Diabetic F oot Exam [facility] Start: 07-20-2025 Hepatitis B surface antibody level LDL Cholesterol [facility] Start: 05-02-2025 Influenza vaccination Influenza Vacc ine (#1) [facility] Start: 03-17-2025 End: 03-17-2025 Patient encounter procedure Neurology Comment on above: 3 month follow up Start: 03-05-2025 [facility] Start: 03-05-2025 [facility] Start: 02-22-2025 Evaluation of diagno stic study results [facility] Start: 01-18-2025 End: 01-18-2025 Patient encounter procedure [facility] [place] Comment on above: 6 month f/u Start: 12-21-2024 BP Controlled (<130/80) BP Controlle d (<130/80) [facility] Start: 12-13-2024 End: 12-13-2024 Patient encounter procedure 12/13/2024 10:00 AM EDT Office Visit Neurology [address] [place] [address] Molly Houser APRN.CUSTOMER RELATIONS ASSISTANT [address] [place] [address] sleep study follow up Neurology Comment on above: sleep study follow u p Start: 10-22-2024 End: 10-22-2024 Patient encounter procedure Neurology Comment on above: Hypersomnolence [G47 .10] NO PAP, no sleep xi dy Start: 10-20-2024 Hemoglobin A1c measurement HbA1C [facility] Start: 09-06-2024 End: 09-06-2024 Patient encounter procedure 09/06/2024 2:40 PM EST Office Visit Family [facility] [address] [place] [address] Nadir Grady MD [address] [place] [address] 4 week f/u weight check and sleep issues Family [facility] [place] Comment on above: 4 week f/u weight ch casie and sleep issues Start: 09-03-2024 BP Controlled (<130/80) BP Controlle d (<130/80) [facility] Start: 09-02-2024 Glaucoma screening Dilated Retinal E xam [facility] Start: 09-01-2024 Advance Directive Discussion Advance Directive Discussion [facility] Start: 09-01-2024 Medicare Advantage A nnual Wellness Visit Medicare Advantage Annual Wellness Visit [facility] Start: 08-27-2024 [facility] Start: 08-27-2024 Enteric precautions [facility] Start: 08-27-2024 [facility] Start: 08-17-2024 Patient referral [facility] Work Phone: Start: 08-16-2024 Cardiac rehabilitati on - phase 1 [facility] Start: 08-16-2024 Cardiac rehabilitati on - phase 2 [facility] Start: 07-21-2024 End: 10-20-2024 ALK PHOS ISOENZYM BL ALK PHOS ISOENZYM BL Lab Routine Elevated alkaline phosphatase level Expected: 07/21/2024, Expires: 10/20/2024 [facility] Work Phone: Comment on above: Expected: 07/21/2024 , Expires: 10/20/2024 Start: 07-21-2024 End: 10-20-2024 Gamma glutamyl transferase [Enzymatic activity/volume] in Serum or Plasma GGT Lab Routine Elevated alkaline phosphatase level Expected: 07/21/2024, Expires: 10/20/2024 [facility] Comment on above: Expected: 07/21/2024 , Expires: 10/20/2024 Start: 07-20-2024 End: 10-19-2024 CBC W Auto Differential panel - Blood [facility] Comment on above: Expected: 07/20/2024 , Expires: 10/19/2024 Start: 07-20-2024 End: 10-19-2024 Comprehensive metabolic 2000 panel - Serum or Plasma [facility] Comment on above: Expected: 07/20/2024 , Expires: 10/19/2024 Start: 07-20-2024 End: 10-19-2024 Hemoglobin A1c in Blood [facility] Work Phone: Comment on above: Expected: 07/20/2024 , Expires: 10/19/2024 Start: 07-20-2024 End: 10-19-2024 Iron and Iron binding capacity panel - Serum or Plasma [facility] Comment on above: Expected: 07/20/2024 , Expires: 10/19/2024 Start: 07-20-2024 End: 10-19-2024 LIPID PANEL, NONFASTING [facility] Comment on above: Expected: 07/20/2024 , Expires: 10/19/2024 Start: 07-20-2024 End: 10-19-2024 Microalbumin/Creatinine [Mass Ratio] in Urine ALBUMIN/CREATININE RATIO, URINE Lab Routine Type 2 diabetes mellitus with diabetic neuropathy, without long-term current use of insulin (HCC) Uncontrolled type 2 diabetes mellitus with hyperglycemia (HCC) Expected: 07/20/2024, Expires: 10/19/2024 [facility] Comment on above: Expected: 07/20/2024 , Expires: 10/19/2024 Start: 07-20-2024 End: 10-19-2024 Thyrotropin [Units/volume] in Serum or Plasma [facility] Comment on above: Expected: 07/20/2024 , Expires: 10/19/2024 Start: 07-20-2024 End: 10-19-2024 Urinalysis complete panel - Urine URINALYSIS, WITH MICROSCOPIC Lab Routine Type 2 diabetes mellitus with diabetic neuropathy, without long-term current use of insulin (HCC) Uncontrolled type 2 diabetes mellitus with hyperglycemia (HCC) Expected: 07/20/2024, Expires: 10/19/2024 [facility] Comment on above: Expected: 07/20/2024 , Expires: 10/19/2024 Start: 06-17-2024 Annual PCP Team Executive Sous Chef bernarda Disease Visit Annual PCP Team Chronic Disease Visit [facility] Start: 06-17-2024 BP Controlled (<130/80) BP Controlle d (<130/80) [facility] Start: 06-17-2024 Hepatitis B surface antibody level LDL Cholesterol [facility] Start: 05-02-2024 Covid-19 Vaccine ( season) Covid-19 Vaccine () [facility] Start: 05-02-2024 Covid-19 Vaccine ( season) Covid-19 Vaccine () [facility] Start: 05-02-2024 Influenza vaccination Influenza Vacc ine (#1) [facility] Start: 02-18-2024 BP CONTROLLED (<130/80) BP CONTROLLE D (<130/80) [facility] Start: 12-17-2023 Hemoglobin A1c measurement HbA1C [facility] Start: 12-17-2023 Hemoglobin A1c/Hemoglobin.total in Blood HbA1C [facility] Start: 12-04-2023 Patient discharge [facility] Start: 12-03-2023 Ambulation without limitation [facility] Start: 12-03-2023 Assessment of risk o f venous thromboembolism [facility] Start: 12-03-2023 Incentive spirometry [facility] Start: 12-03-2023 Insertion of cathete r into peripheral vein [facility] Start: 12-03-2023 Measuring intake and output [facility] Start: 12-03-2023 Oxygen therapy [facility] Start: 12-03-2023 Providing care accor ding to standard [facility] Start: 12-03-2023 Provision of activit y privileges [facility] Start: 12-03-2023 Referral to occupati onal therapist [facility] Start: 12-03-2023 Referral to service [facility] Start: 12-03-2023 Tobacco use cessatio n education [facility] Start: 12-03-2023 [facility] Start: 12-03-2023 Following clinical p athway protocol [facility] Start: 12-03-2023 Verification routine [facility] Start: 12-03-2023 Care regimes management [facility] Start: 12-03-2023 Notification of physician [facility] Start: 12-03-2023 [facility] Start: 12-03-2023 Urinalysis complete panel - Urine [facility] Start: 12-03-2023 Hospital admission, emergency, from emergency room, medical nature [facility] Start: 12-03-2023 Admission procedure [facility] Start: 12-03-2023 [facility] Start: 11-29-2023 ANNUAL PCP TEAM MEDICAL HEALTH RESEARCHER BERNARDA DISEASE VISIT ANNUAL PCP TEAM CHRONIC DISEASE VISIT [facility] Start: 11-29-2023 Hepatitis B screening URINE ALBUMIN:CREATININE RATIO [facility] Start: 11-29-2023 Hepatitis B surface antibody level LDL CHOLESTEROL [facility] Start: 11-22-2023 BP CONTROLLED (<130/80) BP CONTROLLE D (<130/80) [facility] Start: 11-11-2023 Patient referral [facility] Work Phone: Start: 10-29-2023 BP CONTROLLED (<130/80) BP CONTROLLE D (<130/80) [facility] Start: 10-23-2023 [facility] Start: 10-15-2023 [facility] Start: 10-15-2023 [facility] Start: 10-14-2023 Colonoscopy COLONOSCOPY [facility] Start: 10-13-2023 Patient referral [facility] Work Phone: Start: 10-11-2023 Patient discharge [facility] Start: 10-10-2023 Ambulation without limitation [facility] Start: 10-10-2023 Pulse taking [facility] Start: 10-10-2023 Cardiac monitoring [facility] Start: 10-10-2023 Cardiac rehabilitati on - phase 1 [facility] Start: 10-10-2023 Cardiac rehabilitati on - phase 2 [facility] Start: 10-10-2023 Notification of physician [facility] Start: 10-10-2023 Patient discharge [facility] Start: 10-10-2023 Taking patient vital signs [facility] Start: 10-10-2023 Vascular disease ris k assessment [facility] Start: 10-10-2023 Vital signs measurements [facility] Start: 10-10-2023 End: 10-10-2023 [facility] Start: 10-10-2023 Application of intermittent pneumatic compression device [facility] Start: 10-10-2023 End: 10-10-2023 Care planning and problem solving actions [facility] Start: 10-09-2023 Following clinical p athway protocol [facility] Start: 10-09-2023 Ambulation without limitation [facility] Start: 10-09-2023 Assessment of risk o f venous thromboembolism [facility] Start: 10-09-2023 Care regimes management [facility] Start: 10-09-2023 Insertion of cathete r into peripheral vein [facility] Start: 10-09-2023 Measuring intake and output [facility] Start: 10-09-2023 Notification of physician [facility] Start: 10-09-2023 Providing care accor ding to standard [facility] Start: 10-09-2023 Referral to picking tech [facility] Start: 10-09-2023 Referral to occupati onal therapist [facility] Start: 10-09-2023 Referral to service [facility] Start: 10-09-2023 Tobacco use cessatio n education [facility] Start: 10-09-2023 [facility] Start: 10-09-2023 Verification routine [facility] Start: 10-09-2023 Hospital admission, emergency, from emergency room, medical nature [facility] Start: 10-09-2023 Admission procedure [facility] Start: 10-09-2023 End: 10-09-2023 [facility] Start: 10-05-2023 BP CONTROLLED (<130/80) BP CONTROLLE D (<130/80) [facility] Start: 10-04-2023 ANNUAL PCP TEAM MEDICAL HEALTH RESEARCHER BERNARDA DISEASE VISIT ANNUAL PCP TEAM CHRONIC DISEASE VISIT [facility] Start: 09-01-2023 Advance Directive Discussion Advance Directive Discussion [facility] Start: 09-01-2023 Behavioral Health Screening Behavioral Health Screening [facility] Start: 09-01-2023 Depression Assessment Depression Ass essment [facility] Start: 08-21-2023 ANNUAL PCP TEAM MEDICAL HEALTH RESEARCHER BERNARDA DISEASE VISIT ANNUAL PCP TEAM CHRONIC DISEASE VISIT [facility] Start: 08-21-2023 BP CONTROLLED (<130/80) BP CONTROLLE D (<130/80) [facility] Start: 08-21-2023 COVID-19 VACCINE (2 - Pfizer series) COVID-19 VACCINE (2 - Pfizer series) [facility] Comment on above: Postponed from 09/06 (Declined at this time) Postponed from 10/11 (Declined at this time) Start: 07-30-2023 ANNUAL PCP TEAM MEDICAL HEALTH RESEARCHER BERNARDA DISEASE VISIT ANNUAL PCP TEAM CHRONIC DISEASE VISIT [facility] Start: 06-27-2023 BP CONTROLLED (<130/80) BP CONTROLLE D (<130/80) [facility] Start: 06-25-2023 ANNUAL PCP TEAM MEDICAL HEALTH RESEARCHER BERNARDA DISEASE VISIT ANNUAL PCP TEAM CHRONIC DISEASE VISIT [facility] Start: 06-25-2023 BP CONTROLLED (<130/80) BP CONTROLLE D (<130/80) [facility] Start: 05-31-2023 Hemoglobin A1c/Hemoglobin.total in Blood HBA1C [facility] Start: 05-13-2023 3 comp foot exam completed DIABETIC FOOT EXAM [facility] Start: 05-13-2023 ANNUAL PCP TEAM MEDICAL HEALTH RESEARCHER BERNARDA DISEASE VISIT ANNUAL PCP TEAM CHRONIC DISEASE VISIT [facility] Start: 05-13-2023 Diabetic foot examination Diabetic F oot Exam [facility] Start: 05-02-2023 Covid-19 Vaccine ( season) Covid-19 Vaccine ( season) [facility] Start: 05-02-2023 Influenza vaccination INFLUENZA (#1) [facility] Start: 04-25-2023 BP CONTROLLED (<130/80) BP CONTROLLE D (<130/80) [facility] Start: 04-19-2023 ANNUAL PCP TEAM MEDICAL HEALTH RESEARCHER BERNARDA DISEASE VISIT ANNUAL PCP TEAM CHRONIC DISEASE VISIT [facility] Start: 04-19-2023 BP CONTROLLED (<130/80) BP CONTROLLE D (<130/80) [facility] Start: 04-17-2023 Hepatitis B surface antibody level LDL CHOLESTEROL [facility] Start: 04-01-2023 End: 06-01-2023 Fungus identified in Unspecified specimen by Culture FUNGAL CULTURE Microbiology Routine Mouth sores Expected: 04/01/2023, Expires: 06/01/2023 [facility] Work Phone: Comment on above: Expected: 04/01/2023 , Expires: 06/01/2023 Start: 02-07-2023 BP CONTROLLED (<130/80) BP CONTROLLE D (<130/80) [facility] Start: 11-29-2022 End: 2023 Prostate Specific Ag Free [Mass/volume] in Serum or Plasma PSA FREE Lab Routine Elevated PSA Expected: 11/29/2022, Expires: 2023 [facility] Work Phone: Comment on above: Expected: 11/29/2022 , Expires: 2023 Start: 11-28-2022 End: 01-28-2023 ALBUMIN/CREAT RATIO RND UR [facility] Work Phone: Comment on above: Expected: 11/28/2022 , Expires: 01/28/2023 Start: 11-28-2022 End: 01-28-2023 Hemoglobin A1c in Blood [facility] Work Phone: Comment on above: Expected: 11/28/2022 , Expires: 01/28/2023 Start: 11-10-2022 Hemoglobin A1c/Hemoglobin.total in Blood HBA1C [facility] Start: 11-08-2022 ANNUAL PCP TEAM MEDICAL HEALTH RESEARCHER BERNARDA DISEASE VISIT ANNUAL PCP TEAM CHRONIC DISEASE VISIT [facility] Start: 11-08-2022 BP CONTROLLED (<130/80) BP CONTROLLE D (<130/80) [facility] Start: 11-02-2022 Hepatitis B screening URINE ALBUMIN:CREATININE RATIO [facility] Start: 11-02-2022 Hepatitis B surface antibody level LDL CHOLESTEROL [facility] Start: 09-01-2022 ADVANCE DIRECTIVE DISCUSSION ADVANCE DIRECTIVE DISCUSSION [facility] Start: 09-01-2022 DEPRESSION ASSESSMENT DEPRESSION ASS ESSMENT [facility] Start: 07-28-2022 End: 09-27-2022 CBC W Auto Differential panel - Blood CBC + DIFF Lab Routine Iron deficiency anemia, unspecified iron deficiency anemia type Expected: 07/28/2022, Expires: 09/27/2022 [facility] Work Phone: Comment on above: Expected: 07/28/2022 , Expires: 09/27/2022 Start: 07-28-2022 End: 09-27-2022 Iron and Iron binding capacity panel - Serum or Plasma IRON + TIBC Lab Routine Iron deficiency anemia, unspecified iron deficiency anemia type Expected: 07/28/2022, Expires: 09/27/2022 [facility] Work Phone: Comment on above: Expected: 07/28/2022 , Expires: 09/27/2022 Start: 07-02-2022 End: 09-01-2022 CREATININE BLD CREATININE BLD Lab Routine Abnormal weight loss Expected: 07/02/2022, Expires: 09/01/2022 [facility] Work Phone: Comment on above: Expected: 07/02/2022 , Expires: 09/01/2022 Start: 06-26-2022 End: 08-26-2022 Ferritin [Mass/volume] in Serum or Plasma [facility] Work Phone: Comment on above: Expected: 06/26/2022 , Expires: 08/26/2022 Start: 06-26-2022 End: 08-26-2022 Glucose [Mass/volume] in Serum or Plasma [facility] Work Phone: Comment on above: Expected: 06/26/2022 , Expires: 08/26/2022 Start: 06-26-2022 End: 08-26-2022 Iron and Iron binding capacity panel - Serum or Plasma [facility] Work Phone: Comment on above: Expected: 06/26/2022 , Expires: 08/26/2022 Start: 06-25-2022 End: 08-25-2022 25-hydroxyvitamin D3 [Mass/volume] in Serum or Plasma [facility] Work Phone: Comment on above: Expected: 06/25/2022 , Expires: 08/25/2022 Start: 06-25-2022 End: 08-25-2022 CBC W Auto Differential panel - Blood [facility] Work Phone: Comment on above: Expected: 06/25/2022 , Expires: 08/25/2022 Start: 06-25-2022 End: 08-25-2022 Cobalamin (Vitamin B12) [Mass/volume] in Serum or Plasma [facility] Work Phone: Comment on above: Expected: 06/25/2022 , Expires: 08/25/2022 Start: 06-25-2022 End: 08-25-2022 Comprehensive metabolic 2000 panel - Serum or Plasma [facility] Work Phone: Comment on above: Expected: 06/25/2022 , Expires: 08/25/2022 Start: 06-25-2022 End: 08-25-2022 Creatine kinase [Enzymatic activity/volume] in Serum or Plasma [facility] Work Phone: Comment on above: Expected: 06/25/2022 , Expires: 08/25/2022 Start: 06-25-2022 End: 08-25-2022 Folate [Mass/volume] in Serum or Plasma [facility] Work Phone: Comment on above: Expected: 06/25/2022 , Expires: 08/25/2022 Start: 06-25-2022 End: 08-25-2022 Testosterone [Mass/volume] in Serum or Plasma [facility] Work Phone: Comment on above: Expected: 06/25/2022 , Expires: 08/25/2022 Start: 06-25-2022 End: 08-25-2022 Thyrotropin [Units/volume] in Serum or Plasma [facility] Work Phone: Comment on above: Expected: 06/25/2022 , Expires: 08/25/2022 Start: 06-25-2022 End: 08-25-2022 Thyroxine (T4) free [Mass/volume] in Serum or Plasma [facility] Work Phone: Comment on above: Expected: 06/25/2022 , Expires: 08/25/2022 Start: 05-28-2022 [facility] Work Phone: Start: 05-14-2022 End: 07-14-2022 Sodium [Moles/volume] in Serum or Plasma SODIUM/NA BLD Lab Routine Hyponatremia Expected: 05/14/2022, Expires: 07/14/2022 [facility] Work Phone: Comment on above: Expected: 05/14/2022 , Expires: 07/14/2022 Start: 05-11-2022 Hemoglobin A1c/Hemoglobin.total in Blood HBA1C [facility] Start: 05-02-2022 Influenza vaccination INFLUENZA (#1) [facility] Start: 02-14-2022 3 comp foot exam completed DIABETIC FOOT EXAM [facility] Start: 02-06-2022 PNEUMOCOCCAL: 65+ (3 - PPSV23 or PCV20) PNEUMOCOCCAL: 65+ (3 - PPSV23 or PCV20) [facility] Start: 02-06-2022 PNEUMOVAX AGE 65 AND OVER WITH 5YR LOOKBACK (#1) PNEUMOVAX AGE 65 AND OVER WITH 5YR LOOKBACK (#1) [facility] Start: 01-09-2022 Hepatitis C antibody , confirmatory test DILATED RETINAL EXAM [facility] Start: 01-01-2022 Patient referral [facility] Work Phone: Start: 12-06-2021 BP CONTROLLED (<130/80) BP CONTROLLE D (<130/80) [facility] Start: 09-06-2021 COVID-19 VACCINE (2 - Pfizer 3-dose series) COVID-19 VACCINE (2 - Pfizer 3-dose series) [facility] Start: 09-06-2021 COVID-19 VACCINE (2 - Pfizer series) COVID-19 VACCINE (2 - Pfizer series) [facility] Start: 09-01-2021 DEPRESSION ASSESSMENT DEPRESSION ASS ESSMENT [facility] Start: 04-19-2020 FECAL OCCULT BLOOD FECAL OCCULT BLOO D [facility] Start: 04-19-2020 Screening for malign ant neoplasm of colon Fecal Occult Blood [facility] Start: 08-22-2017 End: 08-22-2017 Appointment Appointment [facility] Work Phone: Start: 08-12-2017 End: 02-13-2017 *Hepatic Function Panel *Hepatic Function Panel [facility] Work Phone: Start: 08-12-2017 End: 02-13-2017 Lipid panel [AGGREGATE] *Lipid Profile CC PCP [facility] Work Phone: Start: 04-24-2017 End: 04-24-2017 Appointment Appointment [facility] Work Phone: Start: 04-24-2017 End: 04-24-2017 Appointment Appointment [facility] Work Phone: Start: 02-07-2017 End: 02-07-2017 Appointment Appointment [facility] Work Phone: Start: 02-07-2017 End: 02-10-2017 *Hepatic Function Panel *Hepatic Function Panel [facility] Work Phone: Start: 02-07-2017 End: 02-07-2017 Cardiac Rehab Card[facility] Re[facility] [address] [place], [address] [facility] Work Phone: Start: 02-07-2017 End: 02-07-2017 Follow Up Appt 6 months Follow Up Appt 6 months [facility] Work Phone: Start: 02-07-2017 End: 02-10-2017 Lipid panel [AGGREGATE] *Lipid Profile CC PCP [facility] Work Phone: Start: 02-07-2017 End: 02-07-2017 MMM MMM [facility] Work Phone: Start: 01-08-2017 End: 01-08-2017 Appointment Appointment [facility] Work Phone: Start: 01-08-2017 End: 01-08-2017 *BMP *BMP [facility] Work Phone: Start: 01-08-2017 End: 01-08-2017 CBC W Auto Differential panel - Blood *CBC without Diff [facility] Work Phone: Start: 01-08-2017 End: 02-10-2017 Chest x-ray X-Ray, Chest, PA & Lateral [facility] Work Phone: Start: 01-08-2017 End: 01-08-2017 Coagulation factor induced.INR assay in platelet poor plasma *PT/INR [facility] Work Phone: Start: 01-08-2017 End: 02-07-2017 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 [facility] Work Phone: Start: 01-08-2017 End: 01-08-2017 Echocardiography Echocardiogram (complete) [facility] Work Phone: Start: 01-08-2017 End: 02-10-2017 Electrocardiogram, complete EKG (In office) [facility] Work Phone: Start: 01-08-2017 End: 02-07-2017 Follow Up Appt 3 months Follow Up Appt 3 months [facility] Work Phone: Start: 01-08-2017 End: 01-15-2017 Left Heart Cath Left Heart Cath [facility] Work Phone: Start: 2013 Hepatitis B Vaccine (1 of 3 - Risk 3-dose series) Hepatitis B Vaccine (1 of 3 - Risk 3-dose series) [facility] Start: 1998 COLOGUARD (FIT-DNA) COLOGUARD (FIT-D NA) [facility] Start: 1998 Colonoscopy COLONOSCOPY [facility] Start: [address] [facility] Start: 1998 Screening for malign ant neoplasm of colon [facility] Start: 1998 SIGMOIDOSCOPY SIGMOIDOSCOPY [facility] Start: 1971 Anxiety Screening Anxiety Screening [facility] Start: 1971 Depression Screening Depression Scre ening [facility] Start: 1959 PNEUMOCOCCAL: 65+ (1 - PCV) PNEUMOCOCCAL: 65+ (1 - PCV) [facility] Ankle brachial press ure index [facility] Work Phone: [facility] End: 06-27-2023 COLONOSCOPY DIAGNOSTIC COLONOSCOPY DIAGNOSTIC Endoscopy Routine Anemia, unspecified type 1 Occurrences starting 06/27/2022 until 06/27/2023 [facility] Work Phone: Comment on above: 1 Occurrences starti ng 06/27/2022 until 06/27/2023 End: 08-01-2023 Ct abdomen & pelvis w/contrast material CT ABD/PEL W IVCON Radiology Routine Abnormal weight loss 1 Occurrences starting 07/02/2022 until 08/01/2023 [facility] Work Phone: Comment on above: 1 Occurrences starti ng 07/02/2022 until 08/01/2023 End: 08-01-2023 CT CHEST W IVCON CT CHEST W IVCON Radiology Routine Abnormal weight loss 1 Occurrences starting 07/02/2022 until 08/01/2023 [facility] Work Phone: Comment on above: 1 Occurrences starti ng 07/02/2022 until 08/01/2023 Doppler ultrasonogra phy of aorta [facility] End: 06-27-2023 EGD DIAGNOSTIC EGD DIAGNOSTIC Endoscopy Routine Anemia, unspecified type 1 Occurrences starting 06/27/2022 until 06/27/2023 [facility] Work Phone: Comment on above: 1 Occurrences starti ng 06/27/2022 until 06/27/2023 Patient Education [facility] Work Phone: Patient referral [facility] Work Phone: End: 10-22-2025 Polysomnogram POLYSOMNOGRAM (PSG) Procedures Routine Dream enactment behavior Snores RLS (restless legs syndrome) Non-restorative sleep Excessive daytime sleepiness Chronic insomnia 1 Occurrences starting 10/22/2024 until 10/22/2025 [facility] Work Phone: Comment on above: 1 Occurrences starti ng 10/22/2024 until 10/22/2025 SURGICAL PATHOLOGY [facility] Work Phone: Comment on above: Release Upon Orderin g for 1 Occurrences starting 10/14/2022, 1 completed End: 07-25-2023 Us abdominal real time w/image limited US ABD RT UPPER QUADRANT Radiology Routine Abnormal weight loss 1 Occurrences starting 06/25/2022 until 07/25/2023 [facility] Work Phone: Comment on above: 1 Occurrences starti ng 06/25/2022 until 07/25/2023 US Carotid arteries [facility] Work Phone: US Carotid arteries [facility] Immunizations Immunization Date Immunization Notes Care Provider [facility] 05-19-2024 Seasonal trivalent influenza vaccine, adjuvanted, preservative free Martha Boston PA-C Work Phone: [facility] 05-19-2024 influenza virus vacc ine, unspecified formulation Molly Houser APRN.CNP Work Phone: [facility] 05-15-2023 respiratory syncytia l virus (RSV) vaccine, bivalent (ABRYSVO) Nadir Grady MD Work Phone: [facility] 05-15-2023 Seasonal trivalent influenza vaccine, adjuvanted, preservative free Nadir Grady MD Work Phone: [facility] 05-15-2023 influenza virus vacc ine, unspecified formulation Aydee Posey MA [facility] 05-13-2022 influenza, high-dose , quadrivalent vaccine (FLUZONE HIGH DOSE QUADRIVALENT) Martha Boston PA-C Work Phone: [facility] 05-13-2022 pneumococcal (PCV20) vaccine, 20 valent (PREVNAR 20) Martha Boston PA-C Work Phone: [facility] 05-13-2022 pneumococcal Conjuga te, unspecified formulation Martha Boston PA-C Work Phone: [facility] Work Phone: 08-16-2021 Covid (Pfizer) Dr. Nadir vidal Work Phone: [facility] 07-21-2021 influenza, injectabl e, quadrivalent, preservative free Dr. Nadir Grady Work Phone: [facility] 07-21-2021 influenza, seasonal, injectable Dr. Nadir Grady Work Phone: [facility] Work Phone: 03-01-2021 tetanus toxoid, redu radha diphtheria toxoid, and acellular pertussis vaccine, adsorbed Dr. Nadir Grady Work Phone: [facility] 08-10-2020 zoster vaccine recombinant Nadir Grady MD Work Phone: [facility] 04-17-2020 influenza, high dose seasonal, preservative-free Nadir Grady MD Work Phone: [facility] 04-17-2020 zoster vaccine recombinant Nadir Grady MD Work Phone: [facility] 10-18-2019 pneumococcal conjuga te vaccine, 13 valent Nadir Grady MD Work Phone: [facility] 10-18-2019 tetanus toxoid, redu radha diphtheria toxoid, and acellular pertussis vaccine, adsorbed Nadir Grady MD Work Phone: [facility] 06-17-2019 influenza, high dose seasonal, preservative-free Nadir Grady MD Work Phone: [facility] 06-12-2018 influenza, high dose seasonal, preservative-free Nadir Grady MD Work Phone: [facility] 06-12-2018 pneumococcal conjuga te vaccine, 13 valent Nadir Grady MD Work Phone: [facility] 05-04-2017 influenza, injectabl e, quadrivalent, contains preservative Nadir Grady MD Work Phone: [facility] Work Phone: 02-06-2017 pneumococcal polysaccharide vaccine, 23 valent Nadir Grady MD Work Phone: [facility] 06-18-2016 influenza virus vacc ine, unspecified formulation Nadir Grady MD Work Phone: [facility] Work Phone: 06-01-2016 influenza, injectabl e, quadrivalent, preservative free Dr. Nadir Grady Work Phone: [facility] 06-01-2016 influenza, seasonal, injectable Dr. Nadir Grady Work Phone: [facility] Work Phone: 07-10-2015 influenza virus vacc ine, unspecified formulation Nadir Grady MD Work Phone: [facility] Work Phone: 07-24-2011 tetanus toxoid, redu radha diphtheria toxoid, and acellular pertussis vaccine, adsorbed Nadir Grady MD Work Phone: [facility] Work Phone: 05-18-2011 influenza virus vacc ine, unspecified formulation Nadir Grady MD Work Phone: [facility] Work Phone: 07-10-2010 influenza virus vacc ine, unspecified formulation Nadir Grady MD Work Phone: [facility] Work Phone: 06-09-2009 influenza virus vacc ine, unspecified formulation Nadir Grady MD Work Phone: [facility] Work Phone: 06-07-2008 influenza virus vacc ine, unspecified formulation Nadir Grady MD Work Phone: [facility] 07-06-2007 influenza virus vacc ine, unspecified formulation Nadir Grady MD Work Phone: [facility] Work Phone: 07-05-2006 influenza virus vacc ine, unspecified formulation Nadir Grady MD Work Phone: [facility] Work Phone: Payers Date Payer Category Payer Self-pay [id number] 2018 Medicare HUMANA MEDICARE HUMANA GOLD PLUS [id number] 2018-Present [phone] [place] [id number] [facility] [id number] 2018 Medicare [id number] 2018 Medicare (Managed Care) HUMANA G OLD PLUS [id number] 2013 Medicare [id number] 1999 Unknown [facility] COMP [id number] 1999-Present [phone] [place] [address] [facility] [id number] 1999 Unknown [facility] COMP [id number] 1999-Present [phone] [place] [address] [facility] [id number] Medicaid [id number] Medicare [id number] Unknown [id number] [id number]. 462 Unknown [id number] 2.16.840.1.346518.3.579.2. 462 Unknown [id number] 2.16.840.1.776829.3.579.2. 462 Unknown [id number] 2.16.840.1.151459.3.579.2. 462 Unknown [id number] 2.16.840.1.157764.3.579.2. 462 Unknown [id number] 2.16.840.1.187452.3.579.2. 462 Unknown [id number] 2.16.840.1.493385.3.579.2. 462 Unknown [id number] 2.16.840.1.345043.3.579.2. 462 Unknown [id number] 2.16.840.1.026673.3.579.2. 462 Unknown [id number] 2.16.840.1.811455.3.579.2. 462 Unknown [id number] 2.16.840.1.988215.3.579.2. 462 Unknown [id number] 2.16.840.1.585124.3.579.2. 462 Unknown [id number] 2.16.840.1.295738.3.579.2. 462 Unknown [id number] 2.16.840.1.429852.3.579.2. 462 Unknown [id number] 2.16.840.1.238410.3.579.2. 462 Unknown [id number] 2.16.840.1.881026.3.579.2. 462 Unknown [id number] 2.16.840.1.469989.3.579.2. 462 Unknown [id number] 2.16.840.1.978286.3.579.2. 462 Unknown [id number] 2.16840.1.414282.3.579.2. 462 Unknown [id number] 2.16.840.1.810237.3.579.2. 462 Unknown [id number] 2.16.840.1.632129.3.579.2. 462 Unknown [id number] 2.16.840.1.853142.3.579.2. 462 Unknown [id number] 2.16.840.1.253170.3.579.2. 462 Unknown [id number] 2.16840.1.409209.3.579.2. 462 Unknown [id number] 2.16840.1.846613.3.579.2. 462 Social History Date Type Detail Facility Start: 08-04-2015 End: 03-05-2025 Tobacco smoking status NHIS Never smoked tobacco [facility] Work Phone: End: 07-02-2014 History of tobacco use Chews Tobacco [facility] Work Phone: Start: 11-08-2021 End: 01-18-2025 Alcohol intake Current non-drinker of alcohol (finding) [facility] Start: 11-07-2020 End: 04-19-2022 History SDOH Alcohol Frequency 1 [facility] Start: 11-07-2020 End: 04-19-2022 History SDOH Alcohol Std Drinks 98 [facility] Start: 11-07-2020 End: 04-19-2022 History SDOH Social Connections Phone 5 [facility] Start: 11-07-2020 End: 04-19-2022 History SDOH Social Connections Get Together 2 [facility] Start: 11-07-2020 End: 04-19-2022 History SDOH Social Connections Living 4 [facility] Start: 11-07-2020 Education 11 [facility] Start: 08-04-2015 End: 04-19-2022 Tobacco Comment 1 can of chewing tobacco every 3 days PT QUIT 2014 [facility] Start: 1955 Sex Assigned At Not on file C [facility] Start: 08-09-2020 End: 08-05-2022 Exposure to SARS-CoV-2 (event) Not sure [facility] Start: 12-13-2021 End: 12-03-2023 Tobacco smoking status MOIS Unknown if ever smoked [facility] Start: 03-04-2020 Occasional [facility] Start: 03-04-2020 None [facility] Start: 03-04-2020 With Family [facility] Start: 01-12-2021 Chew [facility] Start: 1955 Sex Assigned At Male W [facility] History of tobacco use Cigarette Smoker C [facility] Work Phone: Start: 08-04-2015 End: 07-20-2024 Tobacco use and exposure Former smokeless tobacco user [facility] Work Phone: Start: 04-19-2022 History SDOH Social Connections Anglican 3 [facility] Start: 04-19-2022 End: 06-17-2023 History of Social function [facility] Start: 04-19-2022 End: 06-17-2023 Social connection and isolation panel [facility] Do you belong to any clubs or organizations such as mormon groups, unions, fraternal or athletic groups, or school groups? No [facility] How often do you att end meetings of the clubs or organizations you belong to? Patient refused [facility] Are you now , , , , never or living with a partner? [facility] How often to you hav e a drink containing alcohol? Never [facility] How hard is it for y ou to pay for the very basics like food, housing, medical care, and heating Not very hard [facility] Do you feel stress - tense, restless, nervous, or anxious, or unable to sleep at night because your mind is troubled all the time - these days [OSQ] Very much [facility] (I/We) worried wheth er (my/our) food would run out before (I/we) got money to buy more. Sometimes true [facility] Do you feel stress - tense, restless, nervous, or anxious, or unable to sleep at night because your mind is troubled all the time - these days [OSQ] Only a little [facility] (I/We) worried wheth er (my/our) food would run out before (I/we) got money to buy more. Never true [facility] Start: 11-17-2024 End: 12-28-2024 Sex Male (finding) [facility] Medical Equipment Procedure Code Equipment Code Equipment Origin al Text Equipment Identifier Dates [id number], [id number], [id number], [id number] Start: 10-14-2016 End: 06-26-2022 Comment on above: Use as directed as i ndicated to check quality of test strips Test blood sugar(s) 2 times daily. Dx: Type 2 DM - Uncontrolled E11.65 Insulin: No ([id number]) Drug-eluting coronary artery stent, bioabsorbable-polym er-coated ()[id number] FDA Start: 04-26-2021 ([id number]) Drug-eluting coronary artery stent, bioabsorbable-polym er-coated ()[id number] FDA Start: 07-23-2021 ([id number]) Implantable card iac monitor ()[id number] FDA Start: 12-14-2021 Drug-eluting coronary artery stent, pzm-wptunzqjjozyq-l olymer-coated ()[id number] FDA Start: 10-10-2023 Drug-eluting coronary artery stent, ygf-xwvfisnvenylv-e olymer-coated ()[id number] FDA Start: 10-10-2023 Drug-eluting coronary artery stent, avj-teqkzutvrildq-g olymer-coated ()[id number] FDA Start: 10-10-2023 Drug-eluting coronary artery stent, utl-rsuwqxkwmxjxb-j olymer-coated ()[id number] FDA Start: 10-10-2023 Drug-eluting coronary artery stent, ntl-gqvfsfkiiktnk-l olymer-coated ()[id number] 6 FDA Start: 10-10-2023 ([id number]) Drug-eluting coronary artery stent, bioabsorbable-polym er-coated ()[id number] FDA Start: 10-10-2023 Drug-eluting coronary artery stent, ukw-gaueeijhvbsjy-x olymer-coated ()[id number] FDA Start: 08-16-2024 Goals Date Patient Goal Desired Activity /State Functional Status Date Assessment Result Facility 12-04-2023 Functional status Activity Abili ty Independent [facility] Work Phone: 10-11-2023 Functional status Up ad haile [facility] Work Phone: 03-07-2018 Are you deaf, or do you have serious difficulty hearing No 03/07/2018 3:34 PM Opal Herman RN No [facility] Work Phone: 03-07-2018 Are you blind, or do you have serious difficulty seeing, even when wearing glasses No 03/07/2018 3:34 PM Opal Herman, RIAN No [facility] 03-07-2018 Do you have serious difficulty walking or climbing stairs No 03/07/2018 3:34 PM Opal Herman, RIAN No [facility] 03-07-2018 Do you have difficul ty dressing or bathing No 03/07/2018 3:34 PM Opal Herman, RIAN No [facility] 03-07-2018 Because of a physica l, mental, or emotional condition, do you have difficulty doing errands alone such as visiting a physician's office or shopping No 03/07/2018 3:34 PM Opal Herman RN No [facility] Mental Status Date Assessment Result Facility 03-05-2025 Cognitive function Voice/Name [facility] Work Phone: 08-27-2024 Cognitive function Voice/Name [facility] Work Phone: 12-04-2023 Cognitive function Voice/Name [facility] Work Phone: 12-03-2023 Cognitive function Level Of Cons ciousness Awake;Alert;Appropriate;Fol lows Commands [facility] Work Phone: 10-23-2023 Cognitive function Level Of Cons ciousness Awake;Alert;Appropriate;Fol lows Commands [facility] Work Phone: 10-15-2023 Cognitive function Voice/Name [facility] Work Phone: 10-11-2023 Cognitive function Voice/Name [facility] Work Phone: 10-09-2023 Cognitive function Awake;Alert;A ppropriate;Fol lows Commands [facility] Work Phone: 05-28-2022 Cognitive function Awake;Alert;A ppropriate;Fol lows Commands [facility] Work Phone: 04-24-2022 Cognitive function Voice/Name [facility] Work Phone: 11-02-2021 Cognitive function Level Of Cons ciousness Awake;Alert;Appropriate;Fol lows Commands [facility] Work Phone: 03-07-2018 Because of a physica l, mental, or emotional condition, do you have serious difficulty concentrating, remembering, or making decisions No 03/07/2018 3:34 PM Opal Herman RN No [facility] Clinical Notes 10-03-2016 to 03-08-2025 Telephone Encounter - Paula Donaldson LPN - 03/08/2025 10:59 AM EDTTelephone Encounter - Paula Donaldson LPN - 03/08/2025 10:59 AM EDTAmbrocio Banks MA - 03/07/2025 9:05 AM EDT Note Date & Type Note Facility 03-08-2025 Telephone encounter Note [employer] takes Pt Medicare insurance. And will go to Pt home to set up Cpap for him. They will call Pt and set up a day and time. Will fax new/replacement device order to [employer]. TC to Pt and updated him and he understood. Paula Donaldson LPN [facility] 03-08-2025 Miscellaneous Notes [employer] takes Pt Medicare insurance. And will go to Pt home to set up Cpap for him. They will call Pt and set up a day and time. Will fax new/replacement device order to [employer]. TC to Pt and updated him and he understood. Palua Donaldson LPN documented in this encounter [facility] 03-07-2025 Note HNO ID: [id number] Author: AMBROCIO BANKS MA Service: ? Author Type: Box Stamper Type: Progress Notes Filed: 03/07/2025 09:05 Note Text: Scan on 03/05/2025 5:00 PM by ProviderSonido PA-C: [facility] 03-07-2025 History of Presen t illness Narrative Scan on 03/05/2025 5:00 PM by ProviderSonido PARiccardoC: [facility] documented in this encounter [facility] 03-05-2025 Radiology Diagnostic study note [facility] Imaging Services [address] [place], [place] [id number] Chest 1 View (Portable) MR#: [id number] Acct: [id number] Name: MICHAEL BATES Jr. Rep #: [id number] : 1955 M 70 From: Sarah Mendenhall MD PCP: Dr. Nadir Grady MD Status: REG ER Study:Chest 1 View (Portable) Date of Exam: 03/05/25 Exam# [id number] Ordering Dr: Blas Shah MD EXAM: XR [...] Shah MD; Dr. Nadir Grady MD ~ Machine Filler Shredder: Signed [facility] 03-03-2025 Telephone encounter Note Pt was called and notified that we need an updated insurance card scanned in for his Cpap order. Paula Donaldson LPN [facility] 03-03-2025 Miscellaneous Notes Pt was called and notified that we need an updated insurance card scanned in for his Cpap order. Paula Donaldson LPN documented in this encounter [facility] 02-23-2025 Telephone encounter Note The following approved medication requests have been transmitted electronically. Requested Prescriptions Signed Prescriptions Disp Refills metFORMIN ER (GLUCOPHAGE XR) 500 mg 24 hr tablet 360 tablet 1 Sig: Take 2 tablets by mouth two times a day. Authorizing Provider: NADIR GRADY MD [facility] 02-23-2025 Miscellaneous Notes The following approved medication [...] 2025 8:33 AM documented in this encounter [facility] 02-23-2025 Telephone encounter Note Prescription Refill Information [...] Agudelo LPN February 23, 2025 9:19 AM [facility] 02-23-2025 Telephone encounter Note Prescription Refill Information [...] Ila Roach February 23, 2025 8:33 AM [facility] 02-22-2025 Note HNO ID: [id number] Author: LUIS E AGUDELO LPN Service: ? Author Type: LICENSED NURSE Type: Progress Notes Filed: 02/22/2025 12:25 Note Text: Scan on 02/22/2025 12:02 PM by ProviderSonido PA-C: Consultation - Cardiology [facility] 02-22-2025 History of Presen t illness Narrative Scan on 02/22/2025 12:02 PM by Sonido Lemon PA-C: Consultation - Cardiology documented in this encounter [facility] 01-27-2025 Telephone encounter Note Prescription Refill Information [...] DARCY RANDHAWA January 27, 2025 8:03 AM [facility] 01-27-2025 Miscellaneous Notes Prescription Refill Information The [...] 2025 8:03 AM documented in this encounter [facility] 01-18-2025 Note HNO ID: [id number] Author: MARTHA BOSTON PA-C Service: ? Author Type: Physician Baby Formula Worker Type: Progress Notes Filed: 01/18/2025 10:40 Note [...] Date 2D ECHO (EXEP) 01/16/2017 EF=60%, 1+ CA and TI CATARACT EXTRACTION HX Left 10/2019 [...] daily. Per Cardio: [facility] Zinc Gluconate 50 mg tablet Take 50 mg by mouth once daily. ferrous sulfate 325 mg (65 mg iron) tablet Take 1 tablet by mo (more content not included)... [facility] 12-24-2024 Note HNO ID: [id number] Author: GENO PEREZ MA Service: ? Author Type: Box Stamper Type: Progress Notes Filed: 12/26/2024 16:12 Note Text: Scan on 12/23/2024 6:40 PM by Provider, External, PA-C: Miscellaneous Imaging Scan on 12/23/2024 6:35 PM by Provider, External, PA-C: Carotid dulplex US Scan on 12/23/2024 6:34 PM by Provider, External, PA-C: abd aortic [facility] 12-15-2024 History of Presen t illness [...] our pharmacy team is only on-site at [facility] on and patient was not willing to accept alternative scheduling options and ended up declining pharmacist services at this time. Thank you, Nirav Wilson, PharmD, BCACP documented in this encounter [facility] 12-15-2024 Note HNO ID: [id number] Author: NIRAV WILSON RPh Service: ? Author [...] our pharmacy team is only on-site at [place] location on and patient was not willing to accept alternative scheduling options and ended up declining pharmacist services at this time. Thank you, Silva ClaytonD, BCACP [facility] 12-15-2024 Note Patient Outreach (PM STOW) MICHEAL BATES ([id number]) 1955 M Date Time Provider Department 12/15/24 NIRAV WILSON PMSTOW During your visit today, we recorded the following information about you: Nirav Wilson [facility] 12/15/2024 3:39 PM Signed Primary Care Pharmacy [...] our pharmacy team is only on-site at [facility] on and patient was not willing to accept alternative scheduling options and ended up declining pharmacist services at this time. Thank you, Nirav Wilson PharmD, BCACP Allergies As of Date: 12/15/2024 Noted Allergy Reaction FLORINEF (FLUDROCORTISONE) 04/25/2022 18 - Angioedema LOSARTAN 10/24/2023 18 - Angioedema PERFUMES 01/20/2012 14 - Other: See Comments Comments: sneezing RANEXA (RANOLAZINE) 09/06/2024 14 - Other: See Comments Comments: Headache, nausea and nose bleed Date Reviewed: 12/13/2024 Reviewed by: Molly Houser APRN.CUSTOMER RELATIONS ASSISTANT - Fully Assessed Reason for Visit: [...] strain [S13.9XXA] 07/30/2010 08/30/2010 Other physical therapy [TRM7523] 08/16/2010 08/30/2010 Essential hypertension, benign [I10] 01/17/2012 [...] back pain wit (more content not included)... [facility] 12-13-2024 History of Presen t illness Narrative Images from the original note were not included. [facility] Follow up/ Established patient [...] apnea. Per pt choice will do at [facility]. To include RBD montage. Rx for zolpidem [...] your preferred time and location. Molly Houser APRN.CUSTOMER RELATIONS ASSISTANT Here for follow up for discussion of PSG that was obtained due to snoring, frequent nocturnal awakening, non-restorative sleep, dream enactment behavior, sleep onset insomnia, excessive daytime sleepiness, RLS 11/09/24 PSG at [facility]: AHI 26 (4% scoring) Mean O2 91% [...] tablet by mouth once daily. Per Cardio: [facility] empagliflozin (JARDIANCE) 10 mg [...] will have a prescription sent to a [employer] ([employer]) company - TBD who will be calling you in the next 1-2 weeks or so. Please call them directly or us if you do not hear from them in this time frame. - You should be eligible for new supplies approximately every 3-6 months, depending on your insurance coverage. - If your mask doesn't fit well, call the [employer] company before 30 days are up to get a new mask without an additional charge. - Insurance requires regular usage and periodic office follow ups for PAP therapy, to continue to cover supplies. - Follow up for 31-90 day PAP visit, follow up scheduled for 3 mos Molly Houser APRN.CNP documented in this encounter [facility] 12-13-2024 Note HNO ID: [id number] Author: MOLLY HOUSER APRN.CNP Service: ? Author Type: Nurse Practitioner Type: Progress Notes Filed: 12/16/2024 21:29 Note Text: [facility] Follow up/ Established patient [...] apnea. Per pt choice will do at [facility]. To include RBD montage. Rx for zolpidem [...] your preferred time and location. Molly Houser APRN.CUSTOMER RELATIONS ASSISTANT Here for follow up for discussion of PSG that was obtained due to snoring, frequent nocturnal awakening, non-restorative sleep, dream enactment behavior, sleep onset insomnia, excessive daytime sleepiness, RLS 11/09/24 PSG at [facility]: AHI 26 (4% scoring) Mean O2 91% [...] tablet by mouth once daily. Per Cardio: [facility] empagliflozin (JARDIANCE) 10 mg [...] Kern omeprazole (PRILOSEC (more content not included)... [facility] 12-08-2024 Evaluation note Diagnosis Onset Date Resolution Claudication of left lower extremity acute December 08, 2024 8:09am Bilateral carotid artery stenosis chronic December 08, 2024 8:09am History of coronary artery stent placement August 16, 2024 chronic December 08, 2024 8:09am Hyperlipidemia chronic December 08, 2024 8:09am Hypotension chronic December 08 8:09am Syncope October,December 08 8:09am [facility] Work Phone: 1(777) 927-720404-09-2025 Evaluation note* Diagnosis Onset Date Resolution Status Admit Date Claudication of left lower extremity acute December 08, 2024 8:09am Bilateral carotid artery stenosis chronic December 08, 2024 8:09am History of coronary artery stent placement August 16, 2024 chronic December 08, 2 025 8:09am Hyperlipidemia chronic December 08, 2024 8:09am Hypotension chronic December 08 8:09am Syncope October,December 08 8:09am Claudication of left lower extremity acute February 22, 2025 10:55am Bilateral carotid artery stenosis chronic February 22, 2025 10:55am History of coronary artery stent placement August 16, 2024 chronic February 22, 2 025 10:55am Hyperlipidemia chronic February 22, 2025 10:55am Hypotension chronic February 22 10:55am Syncope October, chronic February 22 10:55am [facility] Work Phone: 1(548) 494-943303-18-2025 Telephone encounter Note* Telephone Encounter - Molly Houser APRN.MIGEL - 11/16/2024 5:58 PM EDT Will discuss at his upcoming follow up appointment. 11/09/24 PSG at [facility]: AHI 26 (4% scoring) Mean O2 91% Awake mean O2 93% O2 ira 81% O2 <=88% for 23.7 minutes No abnl behavior No RSWA All supine Interpreting physician recommends autoCPAP Molly Houser APRN.MIGEL [facility]03-18-2025 Miscellaneous Notes* Telephone Encounter - Molly Houser APRN.CNP - 11/16/2024 5:58 PM EDT Will discuss at his upcoming follow up appointment. 11/09/24 PSG at [facility]: AHI 26 (4% scoring) Mean O2 91% Awake mean O2 93% O2 ira 81% O2 <=88% for 23.7 minutes No abnl behavior No RSWA All supine Interpreting physician recommends autoCPAP Molly Houser APRN.CNP * Telephone Encounter - Karin Langston LPN - 11/15/2024 11:02 AM EDT Please see attached PSG results. Scan on 11/15/2024 9:56 AM by ProviderSonido PA-C: [facility] PSG 11/09/24 Karin Langston LPN [facility] Telephone encounter Note * Telephone Encounter - Karin Langston LPN - 11/15/2024 11:02 AM EDT Please see attached PSG results. Scan on 11/15/2024 9:56 AM by ProviderSonido, PA-C: [facility] PSG 11/09/24 Karin Langston LPN [facility]02-24-2025 NoteHNO ID: [id number] Author: LUIS E AGUDELO LPN Service: ? Author Type: LICENSED NURSE Type: Progress Notes Filed: 10/25/2024 09:51 Note Text: Scan on 10/25/2024 9:20 AM by ProviderSonido PA-C: [facility] History of Present illness Narrative* Luis E Agudelo LPN - 10/25/2024 9:51 AM EST Scan on 10/25/2024 9:20 AM by Sonido Lemon PA-C: Consultation - Ophthalmology documented [facility]25 NoteHNO ID: [id number] Author: LUIS E AGUDELO LPN Service: ? Author Type: LICENSED NURSE Type: Progress Notes Filed: 10/25/2024 07:02 Note Text: Scan on 10/23/2024 5:15 PM by Sonido Lemon PA-C: [facility] History of Present illness Narrative* Luis E Agudelo LPN - 10/25/2024 7:02 AM EST Scan on 10/23/2024 5:15 PM by Sonido Lemon PA-C: MRI documented in [facility] Instructions* Patient Instructions* Molly Houser APRN.CUSTOMER RELATIONS ASSISTANT - 10/22/2024 1:32 PM EST Images [...] open during sleep. A sleep specialist and post production assistant (with expertise in oral appliances for this [...] the back of the throat) Resources: The [facility] Guide to Sleep Disorders by Kemi Aguirre DO National Sleep Foundation [facility] [facility] [id number] [email or web address].[email or web address]/ [place] [employer] [address], [address] [place], [place] [email or web address].sleepapnea.org/ documented in this encounterE[facility]02-[facility]25 History of Present illness Narrative* Molly Houser APRN.MIGEL - 10/22/2024 1:00 PM EST Images from the original note were not included. [facility] New Patient Evaluation PATIENT NAME: Michael Bates DATE OF SERVICE: October 22, 2024 CONSULTING PROVIDER: Nadir Grady [address] [facility] [place] [address] REASON FOR CONSULT: Nadir Grady sends the [...] Multi level, worse L2-L3 Diabetes ([facility]) Diabetic eye exam ([facility]) 03/19/2017 Last done: 10/01/2018 Elevated LFTs [...] Date 2D ECHO (EXEP) 01/16/2017 EF=60%, 1+ CA and TI CATARACT EXTRACTION HX Left 10/2019 [...] 1 tablet by mouth once daily. Per Cardio:[facility] empagliflozin (JARDIANCE) 10 mg [...] 1 tablet by mouth once daily. Per [facility] atorvastatin (LIPITOR) 80 mg tablet Take 1 tablet by mouth once daily. Managed by cardiology, Dr. Kern omeprazole (PRILOSEC) 40 mg capsule Take 1 capsule by mouth once daily. Per [facility] ticagrelor (BRILINTA) 90 mg tablet [...] doses, Starting on 10/14/22 at 1158, Until Fri10/15/22 at 0417, for [...] apnea. Per pt choice will do at [facility]. To include RBD montage. Rx for zolpidem [...] which included preparing to see the patient, [id number]-kpbj patient care, completing clinical documentation, performing a medically appropriate examination, counseling and educating the patient/family/caregiver, and ordering medications, tests,or procedures. documented in [facility]02-[facility]-2025 NoteHNO ID: [id number] Author: MOLLY HOUSER APRN.CNP Service: ? Author Type: Nurse Practitioner Type: Progress Notes Filed: 10/22/2024 13:57 Note Text: [facility] New Patient Evaluation PATIENT NAME: Michael Bates DATE OF SERVICE: October 22, 2024 CONSULTING PROVIDER: Nadir Grady [address] [facility] [place] [address] REASON FOR CONSULT: Nadir Grady sends the [...] (degenerative disc disease), lumb (more content not included)...[facility]02-06-2025 Telephone encounter Note* Telephone Encounter - Martha Boston PA-C - 10/07/2024 2:28 PM EST Noted. [facility]02-06-2025 Miscellaneous Notes* Telephone Encounter - Martha Boston [...] symptom. Martha Boston PA-C [facility] Telephone encounter Note * Telephone Encounter - Luis E Agudelo LPN - 10/07/2024 2:16 PM EST Pt notified of results and instructions. Pt verbalizes understanding. Pt prefers just to see pain medicine for now. Does not want to try OTC Flonase. States he gets thrush from nasal sprays. Luis E Agudelo LPN [facility]02-06-2025 Telephone encounter Note* Telephone Encounter - [...] will help hisheadache symptom. Martha Boston PA-C [facility]02-06-2025 History of Present illness Narrative* Yovanny Wright, (R) - 10/07/2024 11:00 AM EST Radiology Service [...] PATIENT PRESENTS WITH AN IMPLANTABLE OR ATTACHED TWISTING OPERATOR: No ALLERGIES: Reviewed and unchanged CONTRAST ALLERGY: NO. EXAM: MRI - CONTRAST TYPE: GROUP II PERIPHERAL IV DATA: Ambulatory: A peripheral IV was started in the Right antecubital site with a Angio cath: 22 gauge. RADIOLOGY DEPARTMENT: MR; Exam(s) Completed: Head: Routine Brain SIGNATURE: Yovanny Wright, RT(R) PATIENT NAME: Michael Bates DATE: October 07, 2024 TIME: 11:22 AM documented in this encounterE[facility]02-[facility]-2025 NoteHNO ID: [id number] Author: YOVANNY WRIGHT RT(Emmanuelle) Service: ? Author Type: Technologist Type: [...] PATIENT PRESENTS WITH AN IMPLANTABLE OR ATTACHED TWISTING OPERATOR: No ALLERGIES: Reviewed and unchanged CONTRAST ALLERGY: NO. EXAM: MRI - CONTRAST TYPE: GROUP II PERIPHERAL IV DATA: Ambulatory: A peripheral IV was started in the Right antecubital site with a Angio cath: 22 gauge. RADIOLOGY DEPARTMENT: MR; Exam(s) Completed: Head: Routine Brain SIGNATURE: RT Valarie(R) PATIENT NAME: Michael Bates DATE: October 07, 2024 TIME: 11:22 [facility]02-06-2025 NoteHNO ID: [id number] Author: MARTHA BOSTON PA-C Service: ? Author Type: Physician Baby Formula Worker Type: Progress Notes Filed: 10/07/2024 09:53 Note [...] Date 2D ECHO (EXEP) 01/16/2017 EF=60%, 1+ CA and TI CATARACT EXTRACTION HX Left 10/2019 [...] tablet by mouth once daily. Per Cardio: [facility] empagliflozin (JARDIANCE) 10 mg tablet Take 1 tabl (more content not included)...[facility] History of Present illness Narrative* Martha [...] Diabetes (HCC) Diabetic eye exam ([facility]) 03/19/2017 Last done: 10/01/2018 Elevated LFTs [...] Date 2D ECHO (EXEP) 01/16/2017 EF=60%, 1+ CA and TI CATARACT EXTRACTION HX Left 10/2019 [...] 1 tablet by mouth once daily. Per Cardio:[facility] empagliflozin (JARDIANCE) 10 mg [...] 1 tablet by mouth once daily. Per [facility] atorvastatin (LIPITOR) 80 mg tablet [...] which included preparing to see the patient, [id number]-[id number] patient care, completing clinical documentation, obtaining and/or reviewing separately obtained history, performing a medically appropriate examination, counseling and educating the pat ient/family/caregiver, ordering medications, tests, or procedures, and communicating with other HCPs (not separately reported). documented in this encounterE[facility]01-24-2025 NoteHNO ID: [id number] Author: LUIS E AGUDELO LPN Service: ? Author Type: LICENSED NURSE Type: Progress Notes Filed: 09/24/2024 10:12 Note Text: Scan on 09/24/2024 8:34 AM by Sonido Lemon PA-C: [facility]Mag[facility]01-24-2025 History of Present illness Narrative* Luis E Agudelo LPN - 09/24/2024 10:12 AM EST Scan on 09/24/2024 8:34 AM by Sonido Lemon PA-C: Chemistry documented in this encounterElyria [facility]01-23-2025 NoteHNO ID: [id number] Author: LUIS E AGUDELO LPN Service: ? Author Type: LICENSED NURSE Type: Progress Notes Filed: 09/23/2024 14:49 Note Text: Scan on 09/23/2024 1:38 PM by Sonido Lemon PA-C: ChemistryMag[facility] Hospital01-23-2025 History of Present illness Narrative* Luis E Agudelo LPN - 09/23/2024 2:48 PM EST Scan on 09/23/2024 1:38 PM by Sonido Lemon PA-C: Chemistry documented in this [facility]01-22-2025 NoteHNO ID: [id number] Author: LUIS E AGUDELO LPN Service: ? Author Type: LICENSED NURSE Type: Progress Notes Filed: 09/22/2024 07:08 Note Text: Scan on 09/21/2024 10:00 PM by Sonido Lemon PA-C: X[facility]rayMag[facility] Hospital01-22-2025 History of Present illness Narrative* Luis E Agudelo LPN - 09/22/2024 7:08 AM EST Scan on 09/21/2024 10:00 PM by Sonido Lemon PA-C: X-ray documented in this [facility]01-21-2025 NoteHNO ID: [id number] Author: LUIS E AGUDELO LPN Service: ? Author Type: LICENSED NURSE Type: Progress Notes Filed: 09/21/2024 07:05 Note Text: Scan on 09/20/2024 8:35 PM by Sonido Lemon PA-C: ChemistryMag[facility]01-21-2025 History of Present illness Narrative* Luis E Agudelo LPN - 09/21/2024 7:05 AM EST Scan on 09/20/2024 8:35 PM by Provider, Sonido, HOANG: Chemistry documented in this encounterElyria [facility] Hospital01-08-2025 Evaluation note* Diagnosis Onset Date Resolution [...] Hyperlipidemia chronic December 08, 2024 8:09am Hypotension December 08 8:09am Syncope October, chronic December 08 8:09am [facility] Work Phone: 1(681) 649-140201-07-2025 Telephone encounter Note* Telephone Encounter - Meg Miller MA - 09/07/2024 8:25 AM EST Pt notified and verbalized understanding Meg Miller MA [facility]01-07-2025 Miscellaneous Notes* Telephone Encounter - Meg Miller MA - 09/07/2024 8:25 AM EST Pt notified and verbalized understanding Meg Miller MA * Telephone Encounter - Nadir Grady MD - 09/06/2024 11:17 PM EST Let patient know his repeat chest x-ray was normal. documented in this encounterElyria [facility] Hospital01-06-2025 Telephone encounter Note * Telephone Encounter - Nadir Grady MD - 09/06/2024 11:17 PM EST Let patient know his repeat chest x-ray was normal. [facility]01-06-2025 History of Present illness Narrative* Chaz Pastor [...] PATIENT PRESENTS WITH AN IMPLANTABLE OR ATTACHED TWISTING OPERATOR: No RADIOLOGY DEPARTMENT: General X-ray: Exam(s) Completed: Chest X-Ray PERIPHERAL IV DATA: Not applicable SIGNED BY: RT Angie(R) September 06, 2024 4:46 PM documented in this encounterElyria [facility] Hospital01-06-2025 NoteHNO ID: [id number] Author: CHAZ PASTOR RT(R) Service: Radiology Author [...] PATIENT PRESENTS WITH AN IMPLANTABLE OR ATTACHED TWISTING OPERATOR: No RADIOLOGY DEPARTMENT: General X-ray: Exam(s) Completed: Chest X-Ray PERIPHERAL IV DATA: Not applicable SIGNED BY: RT Angie(R) September 06, 2024 4:46 [facility]01-06-2025 History of Present illness Narrative* Nadir [...] ER on 08/27/2024 he had been at [facility] and noted shortness of breath, then when [...] breath like when he was in [employer] on 08/27/2024. The weakness feeling he had [...] Neurologia. He ws seeing pain management at [facility] and had been receiving neck injections and [...] Date 2D ECHO (EXEP) 01/16/2017 EF=60%, 1+ CA and TI CATARACT EXTRACTION HX Left 10/2019 [...] 1 tablet by mouth once daily. Per Cardio:[facility] empagliflozin (JARDIANCE) 10 mg [...] 1 tablet by mouth once daily. Per [facility] atorvastatin (LIPITOR) 80 mg tablet Take 1 tablet by mouth once daily. Managed by cardiology, Dr. Kern omeprazole (PRILOSEC) 40 mg capsule Take 1 capsule by mouth once daily. Per [facility] ranolazine ER (RANEXA) 1,000 mg tab ER 12 hr Take 1 tablet by mouth two times a day. Per [facility] carvedilol (COREG) 3.125 mg tablet Take 1 tablet by mouth two times a day. Per [facility] (Patient not taking: Reported on 07/20/2024) ticagrelor (BRILINTA) 90 mg tablet Take 1 tablet by mouth two times a day. Per [facility] docosahexaenoic acid/epa (FISH OIL ORAL) [...] CONSULT TO PAIN MGT: Dr. Paz at [facility] 8. Cervicogenic headache - ICD9: 784.0, ICD10: G44.86 - CONSULT TO PAIN MGT F/u as need otherwise next routine in December. I spent a total of 65 minutes on the date of the service which included preparing to see the patient, bfcc-sy-vjtr patient care, completing clinical documentation, performing a medically appropriate examination, counseling and educating the patient/family/caregiver and ordering medications, tests, or procedures. Nadir Grady MD documented in this encounterElyria [facility]01-06-2025 NoteHNO ID: [id number] Author: NADIR GRADY MD Service: ? Author [...] on 08/27/2024 he had been at [employer] and noted shortness of breath, then when [...] Neurologia. He ws seeing pain management at [facility] and had been receiving neck injections and [...] Multi level, worse L2-L3 Diabetes ([facility]) Diabetic eye exam ([facility]) 03/19/2017 Last done: 10/01/2018 Elevated LFTs [...] Date 2D ECHO (EXEP) 01/16/2017 EF=60%, 1+ CA and TI CATARACT EXTRACTION HX Left 10/2019 CC CORONARY STENT 05/10/2020 RODDY to pLCx CC CORONARY STENT 12/2016 Ramus of Circ and LAD CC CORONARY STENT 11/20/2020 RODDY to pLCx and PTCA to OM2 CC CORONARY STENT 07/23/2021 PCI to prox Lt Circ in-stent restenosis then place (more content not included)...[facility] Tele[facility] encounter Note* Telephone Encounter - [...] Sheryl Martinez August 21, 2024 8:28 AM [facility] [facility] Miscellaneous Notes* Telephone Encounter - Sheryl Martinez [...] 21, 2024 8:28 AM documented in this encounterElyria [facility]12-17-2024 NoteHNO ID: [id number] Author: KARLA WADSWORTH MA Service: ? Author Type: Box Stamper Type: Progress Notes Filed: 08/17/2024 11:31 Note Text: Scan on 08/16/2024 9:33 AM by ProviderSonido PA-C: Cardiac Cath Scan on 08/16/2024 10:35 AM by ProviderSonido PA-C: Cardiac Cath Patient has heart cath completed with Dr. Kern at [facility] on 08/16/2024. Restenosis noted on the proximal right coronary artery stent. New stent placed. Karla Wadsworth [facility]12-17-2024 History of Present illness Narrative* Karla Wadsworth MA - 08/17/2024 11:27 AM EST Scan on 08/16/2024 9:33 AM by ProviderSonido PA-C: Cardiac Cath Scan on 08/16/2024 10:35 AM by Sonido Lemon PA-C: Cardiac Cath Patient has heart cath completed with Dr. Kern at [facility] on 08/16/2024. Restenosis noted on the proximal right coronary artery stent. New stent placed. Karla Wadsworth MA documented in this encounterElyria [facility]12-12-2024 NoteHNO ID: [id number] Author: BRIDGET JOSEPH APRN.MIGEL Service: ? Author Type: Nurse Practitioner Type: Progress Notes Filed: 08/12/2024 08:15 Note Text: This note was created using Tapturiter. Subjective Michael Bates is a 69 year [...] and Plan ASSESSMENT/PLAN: 1. Adverse effect of idws-vvz-mdiuhqc medication, initial encounter - ICD9: E947.9, ICD10: T50.905A On physical exam I saw no obvious sign of swelling to the mouth, lips, or tongue. Patient did have a tiny sore near the base of the frenulum. I informed patient he should use ifqm-qjh-jpgmuvx antihistamine such as Claritin, Benadryl, or Zyrtec. I informed him that if it anytime he felt as though his symptoms were not improving or he was having any trouble with swallowing or breathing he should go directly to the emergency department. He was instructed not to use the drops again. Bridget Joseph APRN.MIGELMagruder [facility]12-12-2024 History of Present illness Narrative* Bridget Joseph APRN.MIGEL - 08/12/2024 8:06 AM EST This note was created using NoteWriter. Subjective [...] and Plan ASSESSMENT/PLAN: 1. Adverse effect of ijdr-jmd-gyhfsci medication, initial encounter - ICD9: E947.9, ICD10: T50.905A On physical exam I saw no obvious sign of swelling to the mouth, lips, or tongue. Patient did have a tiny sore near the base of the frenulum. I informed patient he should use nikc-bip-eyjskbq antihistamine such as Claritin, Benadryl, or Zyrtec. I informed him that if it anytime he felt as though his symptoms were not improving or he was having any trouble with swallowing or breathing he should godirectly to the emergency department. He was instructed not to use the drops again. Bridget Joseph APRN.CNP documented in this encounterElyria [facility]12-10-2024 Telephone encounter Note * Telephone Encounter - Jennifer Blue RN - 08/10/2024 12:46 PM EST Pt called and is notified of providers results and instructions. Pt voices understanding. Jennifer Blue RN [facility]12-10-2024 Miscellaneous Notes* Telephone Encounter - Jennifer Blue [...] monitor. Martha Boston PA-C documented in this encounterElyria [facility] Hospital12-10-2024 Telephone encounter Note * Telephone Encounter - Martha Boston PA-C - 08/10/2024 11:19 AM EST Let patient know that repeat alk phos levels were better and only the intestinal portion was elevated. No further evaluation at this time. We will monitor. Martha Boston PA-C [facility]12-04-2024 Telephone encounter Note* Telephone Encounter - Martha Boston PA-C - 08/04/2024 10:09 AM EST Noted [facility]12-04-2024 Miscellaneous Notes* Telephone Encounter - Martha Boston [...] month. Karla Wadsworth MA documented in this encounterElyria [facility]12-04-2024 Telephone encounter Note * Telephone Encounter - [...] heart procedure this month. Karla Wadsworth MA [facility]11-29-2024 NoteHNO ID: [id number] Author: KARLA WADSWORTH MA Service: ? Author Type: Box Stamper Type: Progress Notes Filed: 07/30/2024 15:25 Note Text: Scan on 07/28/2024 9:25 AM by ProviderSonido PA-C: Consultation - Cardiology Karla Wadsworth [facility]11-29-2024 History of Present illness Narrative* Karla Wadsworth MA - 07/30/2024 3:24 PM EST Scan on 07/28/2024 9:25 AM by Sonido Lemon PA-C: Consultation - Cardiology Karla Wadsworth MA documented in this encounterElyria [facility] Hospital11-29-2024 NoteHNO ID: [id number] Author: KARLA WADSWORTH MA Service: ? Author Type: Box Stamper Type: Progress Notes Filed: 07/30/2024 15:23 Note Text: Scan on 07/28/2024 10:20 AM by ProviderSonido PA-C: Chemistry Scan on 07/28/2024 10:45 AM by ProviderSonido PA-C: Chemistry Scan on 07/30/2024 10:40 AM by Provider External PA-C: X-ray Karla Wadsworth [facility]11-29-2024 History of Present illness Narrative* Karla Wadsworth MA - 07/30/2024 3:23 PM EST Scan on 07/28/2024 10:20 AM by ProviderSonido PARiccardoC: Chemistry Scan on 07/28/2024 10:45 AM by ProviderSonido PA-C: Chemistry Scan on 07/30/2024 10:40 AM by ProviderSonido PARiccardoC: X-ray Karla Wadsworth MA documented in this encounterElyria [facility] Hospital11-27-2024 Evaluation note* Diagnosis Onset Date Resolution Status Admit Date Chest pain acute July 28, 2024 8:10am Bilateral carotid artery stenosis chronic July 28, 8:10am History of coronary artery stent placement August 16, 2024July 8:10am Hyperlipidemia chronic July 032023 8:10am Hypotension chronic July 8:10am Syncope October, chronic July 8:10am Bilateral carotid artery stenosis chronic September 08 12:50pm History of coronary artery stent placement August 16, 2024 chronic September 08, 2024 12:50pm Hyperlipidemia chronic September 12:50pm Hypotension chronic September 08, 2024 12:50pm Syncope October,September 08, 2024 12:50pm [facility] Work Phone: 1([phone]) 307-712311-23-2024 History of Present illness Narrative* Griffin Danielson RT(Emmanuelle) - 07/24/2024 9:30 AM EST Radiology Service [...] PATIENT PRESENTS WITH AN IMPLANTABLE OR ATTACHED TWISTING OPERATOR: No RADIOLOGY DEPARTMENT: General X-ray: Exam(s) Completed: Upper Extremity X- Ray(s): Wrist, right PERIPHERAL IV DATA: Not applicable SIGNED BY: RT Petar(Emmanuelle) July 24, 2024 9:37 AM documented in this encounterElyria [facility] Hospital11-23-2024 NoteHNO ID: [id number] Author: GRIFFIN DANIELSON RT(Emmanuelle) Service: ? Author [...] PATIENT PRESENTS WITH AN IMPLANTABLE OR ATTACHED TWISTING OPERATOR: No RADIOLOGY DEPARTMENT: General X-ray: Exam(s) Completed: Upper Extremity X-Ray(s): Wrist, right PERIPHERAL IV DATA: Not applicable SIGNED BY: RT Petar(R) July 24, 2024 9:37 [facility]11-23-2024 NoteHNO ID: [id number] Author: BRIDGET JOSEPH APRN.CNP Service: ? Author Type: Nurse Practitioner Type: Progress Notes Filed: 07/24/2024 10:19 Note Text: This note was created using CellARide. Subjective Michael Bates is a 69 year [...] WRIST GENERAL 3V PA/LAT/OBL RIGHT Bridget Joseph APRN.CNPMagruder Memorial Hospital11-23-2024 History of Present illness Narrative* Bridget Joseph APRN.CNP - 07/24/2024 9:25 AM EST This note was created using CellARide. Subjective Micahel Bates is a 69 year old male. [...] WRIST GENERAL 3V PA/LAT/OBL RIGHT Bridget Joseph APRN.CUSTOMER RELATIONS ASSISTANT documented in this encounterElyria [facility] Hospital11-20-2024 Telephone encounter Note * Telephone Encounter - Luis E Agudelo LPN - 07/21/2024 1:18 PM EST Pt notified of same. He will check with pharmacy for medication. Pt will contact office if any problems. Luis E Agudelo LPN [facility]11-20-2024 Miscellaneous Notes* Telephone Encounter - Luis E [...] to this. Please call and advise. Jennifer Blue, RN * Telephone Encounter - [...] Thanks. Martha Boston PA-C documented in this encounterElyria [facility] Hospital11-20-2024 Telephone encounter Note * Telephone Encounter - Martha Boston PA-C - 07/21/2024 12:14 PM EST We will see if insurance will cover jardiance. It is once a day. Martha Boston PA-C [facility]11-20-2024 Telephone encounter Note* Telephone Encounter - Jennifer Blue RN - 07/21/2024 12:03 PM EST Pt called and is notified of providers results and instructions. Pt voices understanding. Pt stateshe isn't sure about giving himself a weekly injectable. Pt states pills would be better and was asking if provider could switch to this. Please call and advise. Jennifer Blue RN [facility]11-20-2024 Telephone encounter Note* Telephone Encounter - Martha [...] to be fasting. Thanks. Martha Boston PA-C [facility]11-19-2024 Instructions* Patient Instructions* Martha oBston PA-C - 07/20/2024 8:08 AM EST Screening [...] review all the medicines you take, even pgoz-sci-giattay medicines. As you get older, the way [...] have certain medical conditions. documented in this encounterElyria [facility] Hospital11-19-2024 NoteHNO ID: [id number] Author: MARTHA BOSTON PA-C Service: ? Author Type: Physician Baby Formula Worker Type: Progress Notes Filed: 07/20/2024 09:14 Note [...] Multi level, worse L2-L3 Diabetes ([facility]) Diabetic eye exam ([facility]) 03/19/2017 Last done: 10/01/2018 Elevated LFTs [...] Date 2D ECHO (EXEP) 01/16/2017 EF=60%, 1+ CA and TI CATARACT EXTRACTION HX Left 10/2019 CC CORONARY STENT 05/10/2020 (more content not included)...[facility]11-19-[facility] History of Present illness Narrative* Martha [...] Date 2D ECHO (EXEP) 01/16/2017 EF=60%, 1+ CA and TI CATARACT EXTRACTION HX Left 10/2019 [...] dysplasia, repeat in 2 years EGD W/O [facility] SPEC VARICIES INJ 10/14/2022 FECAL OCCULT [...] 1 capsule by mouth once daily. Per [facility] metFORMIN ER (GLUCOPHAGE XR) 500 mg 24 hr tablet Take 2 tablets by mouth two times a day. ferrous sulfate 325 mg (65 mg iron) tablet Take 1 tablet by mouth two times a day with meals. ranolazine ER (RANEXA) 1,000 mg tab ER 12 hr Take 1 tablet by mouth two times a day. Per [facility] ticagrelor (BRILINTA) 90 mg tablet [...] which included preparing to see the patient, xcuc-nd-xews patient care, completing clinical documentation, obtaining and/or reviewing separately obtained history, performing a medically appropriate examination, counseling and educating the pat ient/family/caregiver, ordering medications, tests, or procedures, and communicating results to thepatient/family/caregiver. documented in this encounterElyria Memorial Hospital08-19-2024 Note* Addendum Note - Nadir Grady MD - 04/19/2024 11:12 AM EDTAddended by: NADIR GRADY on: 04/19/2024 11:12 AM Modules accepted: Orders [facility]08-19-2024 Miscellaneous Notes* Addendum Note - Nadir Grady MD - 04/19/2024 11:12 AM EDTAddended by: NADIR GRADY on: 04/19/2024 11:12 AM Modules accepted: Orders documented in this encounterElyria Memorial Hospital08-19-2024 NoteHNO ID: [id number] Author: LUIS E AGUDELO LPN Service: ? Author Type: LICENSED NURSE Type: Progress Notes Filed: 04/19/2024 10:30 Note Text: Scan on 04/19/2024 9:22 AM by ProviderSonido PA-C: Consultation - [facility]iologyMag[facility]uder [facility] Hospital08-19-2024 History of Present illness Narrative* Luis E Agudelo LPN - 04/19/2024 10:29 AM EDT Scan on 04/19/2024 9:22 AM by Provider, Sonido, HOANG: Consultation - Cardiology documented in this encounterElyria [facility] Hospital07-10-2024 History of Present illness Narrative* Aydee Posey [...] to reach patient: Unable to leave message Multigig message sent HCC related Navigation Signature: Aydee Posey MA March 10, 2024 11:37 AM documented in this encounterElyria [facility] Hospital06-21-2024 Telephone encounter Note * Telephone Encounter - [...] Molly Ordonez February 20, 2024 11:51 AM [facility]06-21-2024 Miscellaneous Notes* Telephone Encounter - Molly Ordonez [...] 20, 2024 11:51 AM documented in this encounterElyria [facility] Hospital05-24-2024 Telephone encounter Note * Telephone Encounter - [...] should contact Prescriber first Nadir Grady MD [facility]05-24-2024 Miscellaneous Notes* Telephone Encounter - Nadir Grady [...] Thank you. Ila Roach. documented in this encounterElyria [facility] Hospital05-24-2024 Telephone encounter Note * Telephone Encounter - Karla Wadsworth MA - 01/23/2024 3:53 PM EDT Sent patient my chart message. Patient is due for medicare wellness. Karla Wadsworth MA [facility]05-23-2024 Telephone encounter Note* Telephone Encounter - Ila [...] found Please advise. Thank you. Ila Roach. [facility]04-30-2024 History of Present illness Narrative* Beulah Wright LPN - 12/30/2023 12:05 PM EDT Scan on 12/30/2023 9:52 AM by Provider, HOANG Head: Consultation - Cardiology Beulah Wright LPN documented in this encounterElyria Memorial Hospital04-22-2024 History of Present illness Narrative* Francine Bartholomew, [...] PATIENT PRESENTS WITH AN IMPLANTABLE OR ATTACHED TWISTING OPERATOR: No RADIOLOGY DEPARTMENT: General X-ray: Exam(s) Completed: Upper Extremity X- Ray(s): Forearm, left andHand, left PERIPHERAL IV DATA: Not applicable SIGNED BY: RT Collin(R) December 22, 2023 9:26 AM documented in this encounterElyria Memorial Hospital04-22-2024 History of Present illness Narrative* Karin Hamm APRN.CUSTOMER RELATIONS ASSISTANT - 12/22/2023 9:16 AM EDT This note was created using Tapturiter. Subjective Michael Bates is a 68 year [...] dominant. Denies using homeopathic or OTC medicines LEARNING AND DEVELOPMENT CONSULTANT Denies prior history of arm fracture Denies seeking medical treatment prior to today. The history is provided by the patient. No muffler tender was used. Wrist/forearm Injury The incident occurred [...] Multi level, worse L2-L3 Diabetes ([facility]) Diabetic eye exam ([facility]) 03/19/2017 Last done: [...] Date 2D ECHO (EXEP) 01/16/2017 EF=60%, 1+ CA and TI CATARACT EXTRACTION HX Left 10/2019 [...] by mouth two times a day. Per [facility] atorvastatin (LIPITOR) 40 mg tablet [...] by mouth two times a day. Per [facility] nystatin (MYCOSTATIN) 100,000 unit/mL suspension [...] F/U with PCP and ortho Karin Hamm APRN.CUSTOMER RELATIONS ASSISTANT documented in this encounterElyria Memorial Hospital04-05-2024 History of Present illness Narrative* Beulah Wright LPN - 12/05/2023 12:13 PM EDT an on 12/03/2023 7:00 PM by ProviderSonido PA-C: Consultation - Cardiology Scan on 12/04/2023 12:13 AM by ProviderSonido PA-C: Consultation - Emergency Medicine Beulah Wright LPN documented in this encounterElyria Memorial Hospital04-04-2024 History of Present illness Narrative* Beulah Wright LPN - 12/04/2023 2:56 PM EDT Scan on 12/04/2023 1:38 PM by Provider, HOANG Head: EKG Beulah Wright LPN documented in this encounterElyria Memorial Hospital04-04-2024 Discharge summary Author Jered Huff [facility] December 04, 2023 12:00am Note Date/Time December 03, 2023 2:30 pm [facility] Medical Records Department [address] [place] [id number] Emergency Department Summary 12/03/23 MR#: [id number] Acct: [id number] Name: MICHAEL BATES JrMukesh Rep #:[id number] : 1955 68 From: Jered Castillo PCP: Dr. Nadir Grady MD Status:ADM JASON Location: [address] History of Present Illness Chief Complaint: [...] PFSH Medical History Atherosclerotic heart disease of [place] coronary artery without angina pectoris (10/10/23) Bilateral [...] health 09/13/13 [History Last Taken 02/11/22] omega 2-vtn-lvb-fish oil 1,000 mg (120 mg-180 mg) capsule [...] Allergy Severe ANGIOEDEMA Verified 10/30/23 09:08 [From [facility]] losartan AdvReac Severe Angioedema Verified 10/30/23 [...] % (Auto) 65.7 Lymph % (Auto) 19.4 [place] % (Auto) 11.2 H Eos % (Auto) [...] sinus rhythm with a rate of 88. MA interval, QRS interval, and QTc intervals were all normal. [place] was normal. There are nonspecific ST-T wave [...] hypertension, Chest pain Prescriptions: No Action omega 9-fzl-rkz-fish oil [Fish Oil] 1,000 mg (120 mg-180 [...] Provider] - Disposition Disposition: Acute Care Hospital [facility] What to do if you have Problems For any increased pain, shortness of breath, bleeding, nausea or vomiting, chestpain, or any unexpected problems, contact your Primary Care Provider. Call [facility] ([phone]) or report to the closest Emergency Room. Call 911 if necessary. 12/04/23 0000 <Electronically signed by Jered Huff DO> Cosigner Signature (if applicable): CC: Dr. Nadir Grady MD ~ Signed [facility] Work Phone: 1(374) 519-695704-03-2024 History and physical note Author Gildardo Walton [facility] December 03, 2023 6:51pm Note Date/Time December 03, 2023 6:51 pm [facility] Medical Records Department [address] [place] [address] H&P Exam - Hospitalist 12/03/23 1826 MR#: [id number] Acct: [id number] Name: MICHAEL BATES Jr. Rep #:[id number] : 1955 68 From: Gildardo Escoto PCP: Dr. Nadir Grady MD Status:ADM JASON Location: [place] [address] HPI - General General Date of Admission: [...] sinus rhythm. Patient had 2 troponins negative. [facility] Medical History Atherosclerotic heart disease of [place] coronary artery without angina pectoris (10/10/23) Bilateral carotid artery stenosis BPH (benign prostatic hyperplasia) COVID-19 (06/2021) DDD (degenerative disc disease) Elevated LFTs Essential (primary) hypertension History of CAD (coronary artery disease) Hx of diabetes insipidus Hyperlipidemia Hypertension Sciatica Syncope (10/2021) Tremor of both hands Type 2 diabetes mellitus Home Medications aspirin 81 mg tablet,delayed release 81 mg PO DAILY@0800 [facility] 09/13/13 [History Last Taken 02/11/22] omega 5-xwi-cei-fish oil 1,000 mg (120 mg-180 mg) capsule [...] Allergy Severe ANGIOEDEMA Verified 10/30/23 09:08 [From [facility]] losartan AdvReac Severe Angioedema Verified 10/30/23 [...] % (Auto) 65.7, Lymph % (Auto) 19.4, [place]% (Auto) 11.2 H, Eos % (Auto) 1.9, [...] brother present in ED is power of trade mark attorney for health. After discussion of benefits/risks procedures involved with full code,DNR CC arrest and DNR CC, the patient opted for DNR CC arrest with no intubation Patient doesn't want artificial life support including intubation, tube feed, ventilator and/chest compression, central venous catheter, vasopressor and DC shock if needed Total time spent in mkmw-tq-asgm encounter in discussion of advanced directive 17 minutes. Laboratory Results 12/03/23 14:50: WBC 4.6, RBC 3.83 L, Hgb 11.4 L, Hct 33.3 L, MCV 86.9, MCH 29.8,MCHC 34.2, RDW Std Deviation 39.1, RDW Coeff of Megan 12.3, Plt Count 189, MPV 9.2, Immature Gran % (Auto) 0.900, Neut % (Auto) 65.7, Lymph % (Auto) 19.4, [place]% (Auto) 11.2 H, Eos % (Auto) 1.9, [...] radiographic abnormalities. Charges/Coding Visit Charges Inpatient E&M: 98207 Init Hosp L3 Procedures Hospitalists Procedures: 83652 Advncd Care Plan 30 Min 12/03/23 1851 <Electronically signed by Gildardo Walton MD> Cosigner Signature (if applicable): CC: Dr. Nadir Grady MD; Dr. Gildardo Walton MD~ Signed [facility] Work Phone: 1(626) 763-130402-29-2024 Miscellaneous Notes* Addendum Note - Nadir Grady MD - 10/30/2023 2:08 PM ESTAddended by: NADIR GRADY on: 10/30/2023 02:08 PM Modules accepted: Orders documented in this encounterElyria [facility] Hospital02-29-2024 History of Present illness Narrative* Luis E Agudelo LPN - 10/30/2023 10:54 AM EST Scan on 10/30/2023 10:06 AM by ProviderSonido PA-C: Consultation - Cardiology documented in this encounterElyria Memorial Hospital02-23-2024 History of Present illness Narrative* Mynor Rasmussen LPN - 10/24/2023 10:16 AM EST Losartan 25mg dc'd (ordered by Cardiology) d/t angioedema. Allergy/ Med list updated. Scan on 10/23/2023 4:34 PM by ProviderSonido PA-C: Consultation - Emergency Medicine documented in this encounterElyria Memorial Hospital02-22-2024 History of Present illness Narrative* Luis E Agudelo LPN - 10/23/2023 2:18 PM EST Scan on 10/23/2023 10:14 AM by ProviderSonido PA-C: X-ray documented in this encounterElyria Memorial Hospital02-22-2024 History of Present illness Narrative* Ruthann Wadsworth APRN.CUSTOMER RELATIONS ASSISTANT - 10/23/2023 9:14 AM EST Patient recently [...] want to squad called. documented in this encounterElyria Memorial Hospital02-15-2024 History of Present illness Narrative* Luis E Agudelo LPN - 10/16/2023 8:12 AM EST Scan on 10/15/2023 1:30 PM by ProviderSonido PA-C: Consultation - Emergency Medicine Scan on 10/15/2023 9:30 AM by ProviderSonido PA-C: X-ray documented in this encounterElyria Memorial Hospital02-10-2024 Discharge summary Author Foster Mayberry [facility] October 11, 2023 11:30am Note Date/Time October 11, 2023 11:27am [facility] Medical Records Department [address] [place] [address] Instructions for Home/Discharge Instructions 10/11/23 1127 MR#: [id number] Acct: [id number] Name: MICHAEL BATES JrMukesh Rep #:[id number] : 1955 68 From: [...] 30 Days Qty: 60 0RF Continued omega 8-doj-cey-fish oil [Fish Oil] 1,000 mg (120 mg-180 [...] MD; Dr. Gildardo Walton MD ~ Signed [facility] Work Phone: 1(619) 932-470002-10-2024 Progress note Author Ez Hurst [facility] October 11, 2023 9:43am Note Date/Time October 11, 2023 9:43am [facility] Medical Records Department [address] [place] [address] Progress Note 10/11/23 0942 MR#: [id number] Acct: [id number] Name: MICHAEL BATES Jr. Rep #:[id number] : 1955 68 From: Ez Hurst MD PCP: Dr. Nadir Grady MD Status:ADM IN Location: [place] [id number]- Progress Note Denies any complaints. No angina. May discharge home from a cardiology standpoint. Follow-up with Dr. Kern in 2 to 4 weeks. Continue aspirin lifelong. Ticagrelor for at least 1 year. 10/11/23 0943 <Electronically signed by Ez Hurst MD> Ez Hurst MD Cosigner Signature (if applicable): CC: ~ Signed [facility] Work Phone: 1(914) 961-853002-10-2024 History of Present illness Narrative* Luis E Agudelo LPN - 10/11/2023 8:35 AM EST Scan on 10/10/2023 3:46 PM by ProviderSonido PA-C: Consultation - Cardiology Scan on 10/10/2023 4:17 PM by ProviderSonido PA-C: Cardiac Cath Scan on 10/10/2023 4:19 PM by ProviderSonido PA-C: Echo documented in this encounterElyria Memorial Hospital02-09-2024 Progress note Author Foster Mayberry [facility] October 10, 2023 4:53pm Note Date/Time October 10, 2023 2 :51pm [facility] Medical Records Department [address] [place] [address] Progress Note - Hospitalist 10/10/23 1451 MR#: [id number] Acct: [id number] Name: MICHAEL BATES JrMukesh Rep #:[id number] : 1955 68 From: Foster soni DO PCP: Dr. Nadir Grady MD Status:ADM IN Location: [place] [address] Reason for Visit Reason for Visit: Diagnoses [...] % (Auto) 63.1, Lymph % (Auto) 25.4, [place]% (Auto) 7.7, Eos % (Auto) 2.7, Baso [...] % (Auto) 61.8, Lymph % (Auto) 24.7, [place]% (Auto) 8.2, Eos % (Auto) 3.9, Baso [...] 18:53 EST Reading Location ID and State: [facility] / [place] Tel , Service support , Physical Exam [...] is a 68-year-old male who presented to [facility] ED on 10/09/2023 with worsening chest pain [...] 35 minutes. Charges/Coding Visit Charges Inpatient E&M: 79068 Subs Hosp L2 10/10/23 1653 <Electronically signed by Foster Mayberry DO> Cosigner Signature (if applicable): CC: ~ Signed [facility] Work Phone: 1(634) 458-926502-09-2024 Consult note Author Ez Hurst [facility] October 10, 2023 3:39pm Note Date/Time October 10, 2023 3 :39pm [facility] Medical Records Department [address] [place] [address] Consultation - Cardiology 10/10/23 1534 MR#: [id number] Acct: [id number] Name: MICHAEL BATES Jr. Rep #:[id number] : 1955 68 From: Ez Hurst MD PCP: Dr. Nadir Grady MD Status:ADM IN Location: [place] [address] Assessment & Plan Assessment/Plan (1) Unstable angina: [...] gradually been getting worse. Rest pain yesterday. [facility] Medical History Atherosclerotic heart disease of [place] coronary artery without angina pectoris Bilateral carotid artery stenosis BPH (benign prostatic hyperplasia) COVID-19 (06/2021) DDD (degenerative disc disease) Elevated LFTs Essential (primary) hypertension Hyperlipidemia Sciatica Syncope (10/2021) Tremor of both hands Type 2 diabetes mellitus Home Medications aspirin 81 mg tablet,delayed release 81 mg PO DAILY@0800 heart health 09/13/13 [History Last Taken 02/11/22] omega 0-bog-zdi-fish oil 1,000 mg (120 mg-180 mg) capsule [...] Allergy Severe ANGIOEDEMA Verified 10/09/23 18:11 [From [facility]] perfume AdvReac Other Verified 10/09/23 18:11 [...] % (Auto) 63.1, Lymph % (Auto) 25.4, [place]% (Auto) 7.7, Eos % (Auto) 2.7, Baso [...] % (Auto) 61.8, Lymph % (Auto) 24.7, [place]% (Auto) 8.2, Eos % (Auto) 3.9, Baso [...] % (Auto) 63.1, Lymph % (Auto) 25.4, [place] % (Auto) 7.7, Eos % (Auto) 2.7, [...] % (Auto) 61.8, Lymph % (Auto) 24.7, [place] % (Auto) 8.2, Eos % (Auto) 3.9, [...] Odin Villaseñor MD at 18:53 EST , 10/10/23 1539 <Electronically signed by Ez Hurst MD> Cosigner Signature (if applicable): CC: Dr. Ez Hurst MD; Dr. Nadir Grayd MD; Dr. Gildardo Walton MD~ Signed [facility] Work Phone: 1(451) 733-449902-09-2024 History of Present illness Narrative* Luis E Agudelo LPN - 10/10/2023 7:22 AM EST Scan on 10/09/2023 8:13 PM by ProviderSonido PA-C: Consultation - Emergency Medicine Scan on 10/09/2023 6:58 PM by Sonido Lemon PA-C: X-ray Scan on 10/09/2023 9:13 PM by Sonido Lemon PA-C documented in this encounterE[facility]24 History and physical note Author Gildardo Walton [facility] October 09, 2023 9:01pm Note Date/Time October 09, 2023 8 :07pm [facility] Medical Records Department [address] [place] [address] H&P Exam - Hospitalist 10/09/232004 MR#: [id number] Acct: [id number] Name: MICHAEL BATES Jr. Rep #:[id number] : 1955 68 From: Gildardo Escoto PCP: Dr. Nadir Grady MD Status:ADM IN Location: [place] [address] HPI - General General Date of Admission: [...] x-ray reviewed and discussed assessment and plan. [facility] Medical History Atherosclerotic heart disease of [place] coronary artery without angina pectoris Bilateral carotid artery stenosis BPH (benign prostatic hyperplasia) COVID-19 (06/2021) DDD (degenerative disc disease) Elevated LFTs Essential (primary) hypertension Hyperlipidemia Sciatica Syncope (10/2021) Tremor of both hands Type 2 diabetes mellitus Home Medications aspirin 81 mg tablet,delayed release 81 mg PO DAILY@0800 heart [facility] 09/13/13 [History Last Taken 02/11/22] omega 1-kph-vyw-fish oil 1,000 mg (120 mg-180 mg) capsule [...] Allergy Severe ANGIOEDEMA Verified 10/09/23 18:11 [From [facility]] perfume AdvReac Other Verified 10/09/23 18:11 [...] % (Auto) 63.1, Lymph % (Auto) 25.4, [place]% (Auto) 7.7, Eos % (Auto) 2.7, Baso [...] most likely unstable angina:Patient is being admitted [facility]. SHARRI risk score is 5 [...] in July 2020 reported EF normal with [place]ucopia-normal. Stage I?oxygen. Bubble contrast today negative. Mild [...] advanced directive. His brother is power of trade mark attorney for health. After discussion of benefits/risks procedures involved with full code, DNR CC arrest and DNR CC, the patient opted for DNRCC arrest with no intubation. Patient brother is in agreement Patient doesn't want artificial life support including intubation, tube feed, ventilator and/chest compression, central venous catheter, vasopressor and DC shock if needed Total time spent in jpwz-dm-clzo encounter in discussion of advanced directive 17 minutes. Laboratory Results 10/09/23 18:30: WBC 7.1, RBC 3.87 L, Hgb 11.5 L, Hct 35.0 L, MCV 90.4, MCH 29.7,MCHC 32.9, RDW Std Deviation 42.6, RDW Coeff of Megan 13.0, Plt Count 210, MPV 9.5, Immature Gran % (Auto) 0.400, Neut % (Auto) 63.1, Lymph % (Auto) 25.4, [place]% (Auto) 7.7, Eos % (Auto) 2.7, Baso [...] EST , Charges/Coding Visit Charges Inpatient E&M: 54084 Init Hosp L3 Procedures Hospitalists Procedures: 04483 Advncd Care Plan 30 Min 10/09/232100 <Electronically signed by Gildardo Walton MD> Cosigner Signature (if applicable): CC: Dr. Nadir Grady MD; Dr. Gildardo Walton MD~ Signed [facility] Work Phone: 1(465) 460-565802-08-2024 Discharge summary Author Nicko Rabago [facility] October 09, 2023 8:05pm Note Date/Time October 09, 2023 6 :27pm [facility] Medical Records Department [address] [place] [address] Emergency Department Summary 10/09/23 MR#: [id number] Acct: [id number] Name: MICHAEL BATES Jr. Rep #:[id number] [...] had chest pain with his ranolazine before. [facility] Medical History Atherosclerotic heart disease of [place] coronary artery without angina pectoris Bilateral carotid artery stenosis BPH (benign prostatic hyperplasia) COVID-19 (06/2021) DDD (degenerative disc disease) Elevated LFTs Essential (primary) hypertension Hyperlipidemia Sciatica Syncope (10/2021) Tremor of both hands Type 2 diabetes mellitus Home Medications aspirin 81 mg tablet,delayed release 81 mg PO DAILY@0800 [facility] 09/13/13 [History Last Taken 02/11/22] omega 8-zjg-beb-fish oil 1,000 mg (120 mg-180 mg) capsule [...] Allergy Severe ANGIOEDEMA Verified 10/09/23 18:11 [From [facility]] perfume AdvReac Other Verified 10/09/23 18:11 [...] Ox 95 Oxygen Delivery Method Room Air [facility] Narrative Medical decision making narrative: My independent [...] nitroglycerin. I discussed the case with Dr. Hurst on for cardiology. I discussed case with [...] % (Auto) 63.1 Lymph % (Auto) 25.4 [place] % (Auto) 7.7 Eos % (Auto) 2.7 [...] 18:53 EST Reading Location ID and State: [facility] / [place] Tel , Service support , EKG Initial EKG: Comments: My independent interpretation of the patient's EKG done for chest pain shows a normal sinus rhythm with tachycardic rate at 105. No ventricular ectopy. No indication of acute ST elevation CA. However there is some very mild lateral ST depression that does look a little different than his prior EKG on 20 Jan 2023. There is some baseline variation also. But I believethere is a subtle difference. Management Discussion w/another healthcare provider: Hospitalist and Knockdown Worker Discharge Plan Triage Chief Complaint: Chest Pain ED Provider: Nicko Rabago Dx/Rx/DC Orders Clinical Impression: Hx of diabetes insipidus, Angina at rest, Acute electrocardiogram changes, History of CAD (coronary artery disease), Chest pain Prescriptions: No Action omega 9-sbo-ude-fish oil [Fish Oil] 1,000 mg (120 mg-180 [...] Provider] - Disposition Disposition: Acute Care Hospital [facility] What to do if you have Problems For any increased pain, shortness of breath, bleeding, nausea or vomiting, chestpain, or any unexpected problems, contact your Primary Care Provider. Call [facility] ([phone]) or report to the closest Emergency Room. Call 911 if necessary. 10/09/232004 <Electronically signed by Nicko Rabago MD> Cosigner Signature (if applicable): CC: Dr. Nadir Grady MD ~ Signed [facility] Work Phone: 1(852) 210-926402-08-2024 Discharge summary Author Nicko Rabago [facility] October 09, 2023 8:05pm Note Date/Time October 09, 2023 6 :27pm [facility] Medical Records Department [address] [place] [address] Emergency Department Summary 10/09/23 MR#: [id number] Acct: [id number] Name: MICHAEL BATES Jr. Rep #:[id number] [...] had chest pain with his ranolazine before. [facility] Medical History Atherosclerotic heart disease of [place] coronary artery without angina pectoris Bilateral carotid artery stenosis BPH (benign prostatic hyperplasia) COVID-19 (06/2021) DDD (degenerative disc disease) Elevated LFTs Essential (primary) hypertension Hyperlipidemia Sciatica Syncope (10/2021) Tremor of both hands Type 2 diabetes mellitus Home Medications aspirin 81 mg tablet,delayed release 81 mg PO DAILY@0800 heart health 09/13/13 [History Last Taken 02/11/22] omega 0-ymg-nrv-fish oil 1,000 mg (120 mg-180 mg) capsule [...] Allergy Severe ANGIOEDEMA Verified 10/09/23 18:11 [From [facility]] perfume AdvReac Other Verified 10/09/23 18:11 [...] % (Auto) 63.1 Lymph % (Auto) 25.4 [place] % (Auto) 7.7 Eos % (Auto) 2.7 [...] ectopy. No indication of acute ST elevation CA. However there is some very mild lateral ST depression that does look a little different than his prior EKG on 20 Jan 2023. There is some baseline variation also. But I believethere is a subtle difference. Management Discussion w/another healthcare provider: Hospitalist and Knockdown Worker Discharge Plan Triage Chief Complaint: Chest Pain ED Provider: Nicko Rabago Dx/Rx/DC Orders Clinical Impression: Hx of diabetes insipidus, Angina at rest, Acute electrocardiogram changes, History of CAD (coronary artery disease), Chest pain Prescriptions: No Action omega 0-koi-ddt-fish oil [Fish Oil] 1,000 mg (120 mg-180 [...] Provider] - Disposition Disposition: Acute Care Hospital [facility] What to do if you have Problems For any increased pain, shortness of breath, bleeding, nausea or vomiting, chestpain, or any unexpected problems, contact your Primary Care Provider. Call [facility] ([phone]) or report to the closest Emergency Room. Call 911 if necessary. 10/09/232004 <Electronically signed by Nicko Rabago MD> Cosigner Signature (if applicable): CC: Dr. Nadir Grady MD ~ Signed [facility] Work Phone: 1(907) 877-239902-01-2024 Evaluation note* Diagnosis Onset Date Resolution Status Acute electrocardiogram changes resolved Angina at rest resolved Chest pain resolved Unstable angina resolved Atherosclerotic heart diseas e of [place] coronary artery without angina pectoris October 10, 2023 chronic Bilateral carotid artery stenosis chronic Hypotension chronic Syncope October, [facility] Work Phone: 1(423) 718-132502-01-2024 Evaluation note* Diagnosis Onset Date Resolution Status Acute electrocardiogram changes resolved Angina at rest resolved Chest pain resolved Unstable angina resolved Atherosclerotic heart diseas e of [place] coronary artery without angina pectoris October 10, 2023 chronic Bilateral carotid artery stenosis chronic Hypotension chronic Syncope October, chronic Chest pain acute Chest pain, atypical acute Essential (primary) hypertension [facility] Work Phone: 1(322) 144-171302-01-2024 Evaluation note* Diagnosis Onset Date Resolution Status Acute electrocardiogram changes resolved Angina at rest resolved Chest pain resolved Unstable angina resolved Atherosclerotic heart diseas e of [place] coronary artery without angina pectoris October 10, 2023 chronic Bilateral carotid artery stenosis chronic Hypotension chronic Syncope October, chronic Chest pain resolved Chest pain, atypical resolve d Atherosclerotic heart diseas e of [place] coronary artery without angina pectoris October 10, 2023 chronic Bilateral carotid artery stenosis chronic Hypotension chronic Syncope October, [facility] Work Phone: 1(178) 543-352110-26-2023 Miscellaneous Notes* Telephone Encounter - Karla Wadsworth MA - 06/26/2023 3:14 PM EDT Contacted patient and let him that [facility] prescribes the medication. Karla Wadsworth [...] tablet by mouth once daily. Managed by [facility] Date of last office visit in primary care: 06/17/2023 Date of next office visit in primary care: Visit date not found Last 2 Encounter Wt Readings: Date: Wt: 06/26/2023 84.5 kg (186 lb 3.2 oz) 06/17/2023 85.7 kg (189 lb) Previous labs/tests for medication: Not applicable Please advise. Thank you. Yolanda Brower. documented in this encounterElyria [facility] Hospital10-26-2023 Miscellaneous Notes* Telephone Encounter - Jennifer Blue [...] 125mg Augmentin, please advise documented in this encounterElyria Memorial Hospital10-26-2023 History of Present illness Narrative* Fer Merrill APRN.CUSTOMER RELATIONS ASSISTANT - 06/26/2023 9:40 AM EDT Images from [...] Dr. Duque Chronic sinusitis Claudication ([facility]) 06/04/2017 PVR's normal. Coronary atherosclerosis due to lipid rich plaque 01/20/[address] Kern. s/p RODDY to Ramus and RODDY to LAD placed 01/20/2017. COVID-19 virus infection 06/18/202106/2021 DDD (degenerative disc disease), cervical 01/20/2012 DDD (degenerative disc disease), lumbar 06/30/2016 Multi level, worse L2-L3 Diabetes ([facility]) Diabetic eye exam ([facility]) 03/19/2017 Last done: 10/01/2018 Elevated LFTs [...] Date 2D ECHO (EXEP) 01/16/2017 EF=60%, 1+ CA and TI CATARACT EXTRACTION HX Left 10/2019 [...] tablet by mouth once daily. Managed by [facility] omega-3 fatty acids 1,000 mg [...] and atraumatic. Nose: Nose normal. Mouth/Throat: Lips: [place]. Mouth: Mucous membranes are moist. Pulmonary: Effort: [...] SUSPENSION Fer Merrill APRN.CNP documented in this encounterElyria Memorial Hospital10-19-2023 History of Present illness Narrative* Odin Reyes MD - 06/19/2023 12:32 PM EDT [facility] Triage Note: Patient presents to the [facility] with complaint of sinus pain and shortness of breath. He is a little worse than when seen and treated by Family Medicine 2 days ago. The patient was triaged and determined that he could be further evaluated in the [facility], but he left before being roomed. documented in this encounterElyria Memorial Hospital10-19-2023 Miscellaneous Notes* Telephone Encounter - Meg Miller Cma - 06/19/2023 9:28 AM EDT Patient notified and verbalized understanding Meg Miller Cma * Telephone Encounter - Franny Catalan APRN.CNP - 06/19/2023 9:02 AM EDT Please let patient know his labs show improvement in his hgb a1c and the rest of his labs are stable. documented in this encounterElyria Memorial Hospital09-15-2023 History of Present illness Narrative* Luis E Agudelo LPN - 05/16/2023 9:06 AM EDT Scan on 05/15/2023 9:35 AM by Provider, External, PA-C: Consultation - Cardiology documented in this encounterElyria Memorial Hospital08-04-2023 Miscellaneous Notes* Telephone Encounter - Daniella Whiteside LPN - 04/04/2023 6:36 PM EDT Patient notified.Daniella Whiteside LPN * Telephone Encounter - Fer Merrill APRN.CNP - 04/04/2023 6:12 PM EDT Please notify that testing showed no fungus at 3 days. Will call if becomes positive. documented in this encounterElyria Memorial Hospital08-03-2023 Miscellaneous Notes* Telephone Encounter - Hodan Menard MA - 04/03/2023 7:16 AM EDT Pt was notified of the results. Pt verbalized understanding. Hodan Menard MA * Telephone Encounter - Ruthann Wadsworth APRN.CNP - 04/02/2023 7:52 PM EDT No fungal growth after 1 day will continue to grow culture and if anything comes back positive we will call patient. documented in this encounterElyria Memorial Hospital08-01-2023 Miscellaneous Notes* Telephone Encounter - Geon Perez Ma - 04/01/2023 1:22 PM EDT [...] and advise. Tato Isidro documented in this encounterElyria Memorial Hospital08-01-2023 History of Present illness Narrative* Blanca Lee PA-C - 04/01/2023 8:01 AM EDT This note was created using CellAR[employer]. Subjective Michael Bates is a 68 year [...] tongue. [facility] Not on any PANFILO inhibitors. He did start taking an pexk-nrj-lxwejil zinc supplement 3 weeks ago. He had [...] Multi level, worse L2-L3 Diabetes ([facility]) Diabetic eye exam ([facility]) 03/19/2017 Last done: 10/01/2018 Elevated LFTs [...] tablet by mouth once daily. Managed by [facility] tablet 11 omega-3 fatty acids [...] Date 2D ECHO (EXEP) 01/16/2017 EF=60%, 1+ CA and TI CATARACT EXTRACTION HX Left 10/2019 [...] CULTURE Blanca Lee PA-C documented in this encounterElyria Memorial Hospital07-10-2023 Instructions* Patient Instructions* Ute Shine APRN.CNP - 03/10/2023 12:56 PM EDT Start Triamcinolone 0.1% ointment twice daily for itch May use OTC benadryl or zyrtec as needed for itching Keep rash clean and dry. Allow to dry out. documented in this encounterElyria Memorial Hospital07-10-2023 History of Present illness Narrative* Ute Shine APRN.CNP - 03/10/2023 12:43 PM EDT Images from the original note were not included. Subjective The history is provided by the patient. No muffler tender was used. HPI Michael Bates is a [...] have confirmed and edited as necessary, the [facility] Review of Systems Constitutional: Negative for chills [...] evaluation. Ute Shine APRN.MIGEL documented in this encounterElyria Memorial Hospital06-26-2023 Miscellaneous Notes* Telephone Encounter - Luis E [...] Luis E Agudelo LPN documented in this encounterElyria Memorial Hospital06-06-2023 Miscellaneous Notes* Telephone Encounter - Lisa Rabago [...] to refill Lorazepam $ documented in this encounterElyria Memorial Hospital05-09-2023 Miscellaneous Notes* Telephone Encounter - Luis E [...] and advise. JASE Jin documented in this encounterElyria Memorial Hospital03-31-2023 Miscellaneous Notes* Telephone Encounter - Martha Boston [...] to increasing Actos to 45mg. Prefers [facility] in [place]. Please advise. Thank you. CALLIE [...] Blood counts are stable. documented in this encounterElyria Memorial Hospital03-30-2023 History of Present illness Narrative* Martha Boston [...] Date 2D ECHO (EXEP) 01/16/2017 EF=60%, 1+ CA and TI CATARACT EXTRACTION HX Left 10/2019 [...] dysplasia, repeat in 2 years EGD W/O [facility] SPEC VARICIES INJ 10/14/2022 FECAL OCCULT [...] Date 2D ECHO (EXEP) 01/16/2017 EF=60%, 1+ CA and TI CATARACT EXTRACTION HX Left 10/2019 [...] dysplasia, repeat in 2 years EGD W/O [facility] SPEC VARICIES INJ 10/14/2022 FECAL OCCULT [...] tablet by mouth once daily. Managed by [facility] omega-3 fatty acids 1,000 mg [...] which included preparing to see the patient, fkjv-lh-zjax patient care, completing clinical documentation, obtaining and/or reviewing separately obtained history, performing a medically appropriate examination, counseling and educating the pat ient/family/caregiver, ordering medications, tests, or procedures, communicating with other HCPs (not separately reported), and communicating results to the patient/family/caregiver. documented in this encounterElyria Memorial Hospital03-23-2023 Instructions* Patient Instructions* Jenna Jim APRN.CNP - [...] that time) of gabapentin. documented in this encounterElyria Memorial Hospital03-23-2023 History of Present illness Narrative* Jenna Jim APRN.CNP - 11/21/2022 10:00 AM EDT Images from the original note were not included. [facility] [place] Follow-up Visit Follow-up note November 21, 2022 [...] Date 2D ECHO (EXEP) 01/16/2017 EF=60%, 1+ CA and TI CATARACT EXTRACTION HX Left 10/2019 [...] tablet by mouth once daily. Managed by [facility] omega-3 fatty acids 1,000 mg [...] DATE OF EXAM: Apr 05 2022 2:00PM [facility] 0504 - CT BRAIN WO IVCON [...] base and imaged soft tissues are unremarkable. Director Digital Communications (topogram) images: No acute findings Impression: IMPRESSION: No significant change. No acute intracranial process Machine Filler Shredder: PSCB Transcribe Date/Time: Apr 05 2022 2:06P [...] of previous appointment gabapentin dose was decreased [id number] BID to determine if there was a [...] which included preparing to see the patient, pmom-hm-wctw patient care, completing clinical documentation, obtaining and/or reviewing separately obtained history, performing a medically appropriate examination, counseling and educating the pat ient/family/caregiver, and ordering medications, tests, or procedures. documented in this encounterElyria Memorial Hospital03-16-2023 Miscellaneous Notes* Telephone Encounter - Tana Armas Pss - 11/14/2022 12:[address] consult for [facility] BRAIN [facility].. * Telephone Encounter - CALLIE Rodriguez - 11/08/2022 9:41 AM EST In provider review of patient appointment, patient needs to be re-scheduled with the [facility]. Pt has been seen by three general neurologists and due to the overall concerns, provider believes [facility] will be more beneficial to patient. TC to patient who is advised of the above and is agreeable to see brain [facility]. Please contact patient and assist with scheduling with [facility] BRAIN [facility]. Thank you. CALLIE Rodriguez documented in this encounterElyria Memorial Hospital03-14-2023 History of Present illness Narrative* Fer Merrill APRN.MIGEL - 11/12/2022 11:44 AM EDT Subjective HPI [...] Multi level, worse L2-L3 Diabetes ([facility]) Diabetic eye exam ([facility]) 03/19/2017 Last done: 10/01/2018 Elevated LFTs [...] Date 2D ECHO (EXEP) 01/16/2017 EF=60%, 1+ CA and TI CATARACT EXTRACTION HX Left 10/2019 [...] tablet by mouth once daily. Managed by [facility] omega-3 fatty acids 1,000 mg [...] TABLETS IN A DOSE PACK Fer Merrill APRN.CUSTOMER RELATIONS ASSISTANT documented in this encounterElyria Memorial Hospital03-07-2023 Miscellaneous Notes* Telephone Encounter - Beverly Rawls RN - 11/05/2022 9:55 AM EST Last Office Visit: 10/24/2022 Future Office Visit: 11/19/2022 Requested Prescriptions Pending Prescriptions Disp Refills ferrous sulfate 325 mg (65 mg iron) tablet 60 tablet 1 Sig: Take 1 tablet by mouth twice daily with meals. Date of Last Labs: 08/21/2022 documented in this encounterElyria Memorial Hospital02-28-2023 Instructions* Patient Instructions* Jennifer Pavon PA-C - 10/29/2022 4:38 PM EST -Continue PPI long-term -Repeat EGD in 2 years for surveillance The following instructions are important for you related to your office visit today with the [facility] General Surgeons. INSTRUCTIONS FOLLOWING A NORMAL COLONOSCOPY [...] you should contact our office immediately @ [phone] and ask to be transferred to the General Surgery department. documented in this encounterElyria Memorial Hospital02-28-2023 History of Present illness Narrative* Jennifer Pavon PA-C - 10/29/2022 3:59 PM EST FOLLOW UP VISIT - ENDOSCOPY NAME: Michael Pagan [facility] NO.: [id number] DATE OF SERVICE: 10/29/2022 : 1955 REFERRING [...] in one cassette. Gross examination performed at [facility], [facility] [place] [address] JT 10/14/2022 8:25 PM Performing Lab Diagnostic interpretation performed at [facility], [facility] [id number] CLIA# [id number] [place] Head: Olayinka Paz M.D. Addendum Addendum is issued [...] which included preparing to see the patient, zpbn-yo-sznq patient care, completing clinical documentation, obtaining and/or reviewing separately obtained history, counseling and educating the patient/family/caregiver, independently interpretin g results (not separately reported), and communicating results to the patient/family/caregiver. Jennifer Pavon PA-C documented in this encounterElyria Memorial Hospital02-22-2023 History of Present illness Narrative* Karla Wadsworth MA - 10/23/2022 4:25 PM EST Scan on 10/23/2022 10:26 AM by External Provider: Consultation - Cardiology Please review. Karla Wadsworth MA documented in this encounterElyria Memorial Hospital02-13-2023 History and physical note * Brian Santiago MD - 10/14/2022 12:15 PM EST [...] Diabetes (HCC) Diabetic eye exam ([facility]) 03/19/2017 Last done: 10/01/2018 Elevated LFTs [...] Date 2D ECHO (EXEP) 01/16/2017 EF=60%, 1+ CA and TI CATARACT EXTRACTION HX Left 10/2019 [...] tablet by mouth once daily. Managed by [facility] omega-3 fatty acids 1,000 mg [...] entered by the nurse and reviewed by mn Nursing Notes: Yovanny Thacker LPN 06/27/2022 9:31 [...] me after the testing has been completed. Brian Santiago MD documented in this encounterElyria Memorial Hospital02-04-2023 History of Present illness Narrative* Nadir Grady [...] per cardio his FBS have ranged 130's-160. [place] hrs post meals have been in the [...] rich plaque 01/20/[address] Kern. s/p RDODY to Ramus and RODDY to LAD placed 01/20/2017. COVID-19 virus infection 06/18/202106/2021 DDD (degenerative disc disease), cervical 01/20/2012 DDD (degenerative disc disease), lumbar 06/30/2016 Multi level, worse L2-L3 Diabetes ([facility]) Diabetic eye exam ([facility]) 03/19/2017 Last done: 10/01/2018 Elevated LFTs [...] Date 2D ECHO (EXEP) 01/16/2017 EF=60%, 1+ CA and TI CATARACT EXTRACTION HX Left 10/2019 [...] tablet by mouth once daily. Managed by [facility] omega-3 fatty acids 1,000 mg [...] issues. Nadir Grady MD documented in this encounterElyria Memorial Hospital02-01-2023 Miscellaneous Notes* Telephone Encounter - Nadir Grady MD - 10/02/2022 9:29 AM EST The following approved medication requests have been transmitted electronically. Requested Prescriptions Signed Prescriptions Disp Refills pioglitazone (ACTOS) 30 mg tablet 90 tablet 1 Sig: Take 1 tablet by mouth once daily. Authorizing Provider: NADIR GRADY MD * Telephone Encounter - Abdirahman Duong RN - 10/02/2022 9:22 AM EST Brannon- [facility] reports she informed patient and sister, [...] sent to DDM. Pended. documented in this encounterElyria Memorial Hospital01-24-2023 Miscellaneous Notes* Telephone Encounter - Jennifer Blue RN - 09/24/2022 10:50 AM EST Brannon [facility] CCN called and is notified of providers [...] 10:04 AM EST Brannon De Paznes with [facility] calls to report they take care of setting up pt's meds. Today pt reported to Brannon that Actos was stopped. Brannon is asking pcp if medication has been discontinued and if there is documentation concerning this could it please be faxed to: [phone]. Can call Brannon @ [phone]. Actos is currently on pt's med chart. Aaliyah Horner LPN documented in this encounterCleveland [id number] Instructions* Patient Instructions* Jenna Jim APRN.CNP - 09/23/2022 3:05 PM [...] rates and better stamina. documented in this encounterElyria Memorial Hospital01-23-2023 Instructions* Patient Instructions* Miladys Butt APRN.CNP - 09/23/2022 2:26 PM EST ASSESSMENT/PLAN: 1. Foot injury, left, initial encounter - ICD9: 959.7, ICD10: S99.922A - XR FOOT GENERAL 3V AP/LAT/OBL LEFT Radiologist IMPRESSION: No radiographic evidence of acute osseous injury. Machine Filler Shredder: FAWN Transcribe Date/Time: Sep 23 2022 1:46P [...] illness Miladys Butt APRN.CNP documented in this encounterElyria Memorial Hospital01-23-2023 History of Present illness Narrative* Miladys Butt [...] Date 2D ECHO (EXEP) 01/16/2017 EF=60%, 1+ CA and TI CATARACT EXTRACTION HX Left 10/2019 [...] tablet by mouth once daily. Managed by [facility] omega-3 fatty acids 1,000 mg [...] No radiographic evidence of acute osseous injury. Machine Filler Shredder: FAWN Transcribe Date/Time: Sep 23 2022 1:46P Dictated by : PHYLLIS TORRES MD - Follow-up with your PCP in 3-5 days if symptoms have not improved or sooner if symptoms worsen - Discussed red flags and need for immediate medical evaluation if any occur. - Discussed supportive care treatment with fluids, rest and analgesia. - Discussed expected course of illness Miladys Butt APRN.CUSTOMER RELATIONS ASSISTANT documented in this encounterElyria Memorial Hospital01-23-2023 History of Present illness Narrative* Chaz Pastor [...] 23, 2022 1:33 PM documented in this encounterElyria Memorial Hospital01-19-2023 History of Present illness Narrative* Jenna Jim APRN.CUSTOMER RELATIONS ASSISTANT - 09/19/2022 3:30 PM EST Images from the original note were not included. [facility] [place] Follow-up Visit Follow-up note September 19, 2022 [...] Friday. 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 Previously noted to have low blood pressure [...] earlier today at [facility]. Per [facility] Dr. العلي at appointment earlier today (09/19/22): [...] autonomic clinic. Balaji Gagnon 04/25/22: Balaji Gagnon CUSTOMER RELATIONS ASSISTANT on 04/25/22: IMPRESSION/PLAN: Michael Bates is [...] would be difficulty to go to [place] location to complete. Medications can also be [...] muscles. States he did pass out in [place] four weeks ago. Tremors intermittently in hands. [...] Date 2D ECHO (EXEP) 01/16/2017 EF=60%, 1+ CA and TI CATARACT EXTRACTION HX Left 10/2019 [...] tablet by mouth once daily. Managed by [facility] omega-3 fatty acids 1,000 mg [...] DATE OF EXAM: Apr 05 2022 2:00PM [facility] 0504 - CT BRAIN WO IVCON [...] base and imaged soft tissues are unremarkable. Director Digital Communications (topogram) images: No acute findings Impression: IMPRESSION: No significant change. No acute intracranial process Machine Filler Shredder: FAWN Transcribe Date/Time: Apr 05 2022 2:06P [...] which included preparing to see the patient, [id number] patient care, completing clinical documentation, obtaining and/or reviewing separately obtained history, performing a medically appropriate examination, counseling and educating the pa tient/family/caregiver, ordering medications, tests, or procedures, and communicating with other HCPs (not separately reported). documented in this encounterElyria Memorial Hospital01-05-2023 Miscellaneous Notes* Telephone Encounter - Jennifer Blue RN - 09/05/2022 3:16 PM EST Pt called and is notified of providers message and instructions. Pt voices understanding. 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 August 28 Brannon SAHNI from [facility] calls to report that patient had taken [...] not why? With [facility] this should of been less than $8. [...] pt. Selma Echevarria LPN documented in this encounterElyria Memorial Hospital12-30-2022 Miscellaneous Notes* Telephone Encounter - Karla Wadsworth [...] and advise. Liza Hood documented in this encounterElyria Memorial Hospital12-28-2022 Miscellaneous Notes* Telephone Encounter - Martha Boston PA-C - 08/28/2022 9:58 AM EST Noted. * Telephone Encounter - Beverly Rawls RN - 08/28/2022 9:12 AM EST Brannon SAHNI from [facility] calls to report that patient had taken pseudoephedrine and patient became dizzy,couldn't stand, and couldn't stay awake. Patient has not taken this medication anymore. Patient also requested office visit notes to be faxed to [phone]. Faxed as requested. Beverly Rawls RN documented in this encounterElyria Memorial Hospital12-22-2022 Miscellaneous Notes* Telephone Encounter - Nadir Grady MD - 08/22/2022 9:34 AM EST Noted. * Telephone Encounter - Karla Wadsworth MA - 08/22/2022 9:20 AM EST Spoke with Michael and gave Dr. Grady recommendations. He said he would think about it and let us know. I patient I would send the name of the medication via [facility]. Karla Wadsworth MA * Telephone Encounter - Nadir Grady MD - 08/22/2022 9:08 AM EST Let Michael know I did some looking into alternate treatments for esophageal spasms. There is a med called hyoscyamine that he would take three times a day and it will not affect BP. If interested I will send in script to [facility]. documented in this encounterElyria Memorial Hospital12-22-2022 Miscellaneous Notes* Telephone Encounter - CALLIE Rodriguez [...] Cont the iron medication. documented in this encounterElyria Memorial Hospital12-21-2022 Instructions* Patient Instructions* Nadir Grady MD - 08/21/2022 9:49 AM EST Have Michael stop taking the Glimepiride 2 mg every day. Have him check his blood sugars every day fasting and 2 hrs after lunch as well as when his feel really dizzy. [facility]. Goal for fasting blood sugars is to be below 120 and goal for 2 hrs after a meal is to be below 180. documented in this encounterElyria Memorial Hospital12-21-2022 History of Present illness Narrative* Nadir Grady [...] will be seeing Neurology in September in [place] for pal also. Patient's BS's have been [...] Date 2D ECHO (EXEP) 01/16/2017 EF=60%, 1+ CA and TI CATARACT EXTRACTION HX Left 10/2019 [...] which included preparing to see the patient, [id number]-[id number] patient care, completing clinical documentation, performing a medically appropriate examination, counseling and educating the patient/family/caregiver and ordering medications, tests, or procedures. Nadir Grady MD documented in this encounterElyria Memorial Hospital12-07-2022 Miscellaneous Notes* Telephone Encounter - Nadir Grady [...] notify patient. Veena Currie documented in this encounterElyria Memorial Hospital12-05-2022 Nurse Note* Keith Rawls Ma - 08/05/2022 [...] Nurse: Keith Rawls Ma documented in this encounterElyria Memorial Hospital12-05-2022 History of Present illness Narrative* Mike Lucero MD - 08/05/2022 12:51 PM EST [facility] CYSTOSCOPY PROCEDURE NOTE: Michael Bates is a 67 year old male who presents with BPH for cystoscopy. Pt ID verified with patient: Yes Procedure verified with patient: Yes Procedure confirmed with physician and program support clerk: Yes UNIVERSAL PROTOCOL / SAFETY CHECKLIST Procedure [...] PRN Mike Lucero MD documented in this encounterElyria Memorial Hospital11-29-2022 History of Present illness Narrative* Franny Catalan APRN.[facility] - 07/30/2022 3:38 PM EST Chief [...] Multi level, worse L2-L3 Diabetes ([facility]) Diabetic eye exam ([facility]) 03/19/2017 Last done: 10/01/2018 Elevated LFTs [...] LAD S/P drug eluting coronary stent placement 01/20/2017 12/2016: 2 stents: Ramus of Circ and LAD, 05/10/20 RODDY to pLCx Sciatica 02/09/2010 Seborrheic dermatitis 08/04/2015 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 Managed by [facility] omega-3 fatty acids 1,000 mg [...] NEUROLOGY Franny Catalan APRN.MIGEL documented in this encounterElyria Memorial Hospital11-28-2022 Miscellaneous Notes* Telephone Encounter - Karla Wadsworth MA - 07/29/2022 4:25 PM EST Patient rescheduled. Karla Wadsworth MA * Telephone Encounter - Aaliyah Horner LPN - 07/29/2022 2:41 PM EST Pt's POA Frida called in for an appt. Frida had hung up phone while appt was being scheduled with Franny Catalan CNP for 07/30 @ 9:00 am. Appt was taken by another tree thinner. Message left on Frida's vm to call back to reschedule appt. Aaliyah Horner LPN documented in this encounterElyria Memorial Hospital11-11-2022 Miscellaneous Notes* Telephone Encounter - Ramez Hagen RN - 07/12/2022 9:59 AM EST Called patient's POA and she confirmed the appointment on 08/05 documented in this encounterElyria Memorial Hospital11-10-2022 Miscellaneous Notes* Telephone Encounter - Karla Wadsworth [...] supplement. Martha Boston PA-C documented in this encounterElyria Memorial Hospital11-09-2022 Miscellaneous Notes* Telephone Encounter - Martha Boston [...] the patient's POA. I attempted to contact [facility] but had to leave a VM of the patient's information and request for appointment. The patient's POA understood that aVM had been left and that [facility] will reach out. She was provided the phone number to [facility]. documented in this encounterElyria Memorial Hospital11-09-2022 Miscellaneous Notes* Telephone Encounter - Luis E [...] of CT scan faxed with FYI to [facility]. Luis E Agudelo LPN * Telephone Encounter - Martha Boston PA-C - 07/10/2022 11:22 AM EST Let patient know that CT abd scan shows mild bladder wall thickening which is of uncertain nature and I would like him to see urology for this. CT shows coronary artery calcifications. Will just forward result to his cardiology ([facility]) as a FYI only. Given that he recently had a heart cath, not much more that they will likely recommend. Martha Boston PA-C documented in this encounterElyria Memorial Hospital11-08-2022 History of Present illness Narrative* Elzbieta Reynaga, [...] 2022 TIME: 12:12 PM documented in this encounterElyria Memorial Hospital11-04-2022 Miscellaneous Notes* Telephone Encounter - Luis E Agudelo LPN - 07/05/2022 12:30 PM EDT Spoke with pt and reviewed Martha's message. Pt verbalizes understanding. Luis E Agudelo LPN * Telephone Encounter - Martha Boston PA-C - 07/05/2022 11:36 AM EDT Let patient know that this was prescribed for short term use only. I did not have plans to keep himon this daily or residential. This was discussed with him. I will [...] 10/2022 Last refill: 05/2022 documented in this encounterElyria Memorial Hospital11-01-2022 Miscellaneous Notes* Telephone Encounter - Luis E [...] metformin. Martha Boston PA-C documented in this encounterElyria Memorial Hospital11-01-2022 History of Present illness Narrative* Brian Santiago MD - 07/02/2022 6:25 AM EDT [...] Multi level, worse L2-L3 Diabetes ([facility]) Diabetic eye exam (HCC) 03/19/2017 Last done: [...] Date 2D ECHO (EXEP) 01/16/2017 EF=60%, 1+ CA and TI CATARACT EXTRACTION HX Left 10/2019 [...] tablet by mouth once daily. Managed by [facility] omega-3 fatty acids 1,000 mg [...] entered by the nurse and reviewed by mn Nursing Notes: Yovanny Thacker LPN 06/27/2022 9:31 [...] me after the testing has been completed. Brian Santiago MD documented in this encounterElyria Memorial Hospital10-31-2022 History of Present illness Narrative* Karin Hamilton [...] 01, 2022 9:02 AM documented in this encounterElyria Memorial Hospital10-27-2022 Miscellaneous Notes* Telephone Encounter - Luis E Agudelo LPN - 06/27/2022 11:13 AM EDT Spoke with pt and advised of Martha's message and instructions. Pt verbalizes understanding. Pt also aware this nurse had given this message to Frida as well. Luis E Agudelo LPN * Telephone Encounter - Luis E Agudelo LPN - 06/27/2022 9:51 AM EDT Advised pt's [id number] Frida of Martha's message and instructions. She [...] month. Martha Boston PA-C documented in this encounterElyria Memorial Hospital10-27-2022 Instructions* Patient Instructions* Brian Santiago MD - 06/27/2022 11:08 AM EDT [...] If you do not have a responsible truck driver heavy (family member or friend) with you to [...] until midnight. 2 08/2019 documented in this encounterElyria Memorial Hospital10-27-2022 Nurse Note* Yovanny Thacker, KAITLYN - 06/27/2022 9:27 AM EDT REVIEW OF [...] none Yovanny Thacker LPN documented in this encounterElyria Memorial Hospital10-26-2022 Miscellaneous Notes* Telephone Encounter - Jennifer Blue [...] glucometer, lancets & test strips to [facility], pending. Beulah Wright LPN * Telephone Encounter [...] PM EDT Noted. When is next time [facility] network coming out to check? Martha Boston PA-C The following approved medication requests have been transmitted electronically. Requested Prescriptions Signed Prescriptions Disp Refills glimepiride (AMARYL) 2 mg tablet 30 tablet 5 Sig: Take 1 tablet by mouth daily with breakfast. Authorizing Provider: MARTHA BOSTON PA-C * Telephone Encounter - Jennifer Blue RN - 06/26/2022 1:13 PM EDT Jennifer at [facility] was called and given providers information. She requested last OV notes be faxed over for Dr Kern to see. She states they will call back once he has looked at them and made any decisions. Faxed last OV note to [phone]. * Telephone Encounter - Jennifer Blue RN [...] in and get labs done. Will call [facility]. Jennifer Blue RN * Telephone [...] change. Martha Boston PA-C documented in this encounterElyria Memorial Hospital10-25-2022 Miscellaneous Notes* Telephone Encounter - Selma Echevarria LPN - 06/25/2022 2:54 PM EDT [facility] apt with CAMELIA Candelario. Identified pt with name and date of . Faxed copy to [phone]. Done. Selma Echevarria LPN documented in this encounterElyria Memorial Hospital10-25-2022 History of Present illness Narrative* Francine Bartholomew [...] DATA: Not applicable SIGNED BY: RT Collin(R) June 25, 2022 8:45 AM documented in this encounterElyria Memorial Hospital10-25-2022 Instructions* Patient Instructions* Martha Boston PA-C - 06/25/2022 8:10 AM EDT Make an appointment with cardiology to discuss your blood pressures. documented in this encounterElyria Memorial Hospital10-25-2022 History of Present illness Narrative* Martha Boston [...] to lipid rich plaque 01/20/[address] eKrn. s/p RODDY to Ramus and RODDY to LAD placed 01/20/2017. COVID-19 virus infection 06/18/202106/2021 DDD (degenerative disc disease), cervical 01/20/2012 DDD (degenerative disc disease), lumbar 06/30/2016 Multi level, worse L2-L3 Diabetes ([facility]) Diabetic eye exam ([facility]) 03/19/2017 Last done: 10/01/2018 Elevated LFTs [...] Date 2D ECHO (EXEP) 01/16/2017 EF=60%, 1+ CA and TI CATARACT EXTRACTION HX Left 10/2019 [...] tablet by mouth once daily. Managed by [facility] omega-3 fatty acids 1,000 mg [...] HYDROXY Martha Boston PA-C documented in this encounterElyria Memorial Hospital10-20-2022 Miscellaneous Notes* Telephone Encounter - Madhuri Chapa LPN - 06/20/2022 12:59 PM EDT Brannon Odonnell KAITLYN returned call and went over notes below [...] his plavix and lipitor come from the [facility] and will need to contact [...] is now getting his prescriptions through [facility]. Asking for prescriptions to be sent there. Patient's blood sugar is 245 today. Please review and advise, Beverly Rawls RN * Telephone Encounter - Nadir Grady MD - 06/18/2022 10:05 AM EDT Let brannon know I want to increase his actos to 30 mg a day. Is he still getting meds packaged from [facility] or did he change pharmacies. * Telephone Encounter - Jennifer Blue RN - 06/18/2022 9:32 AM EDT Brannon SAHNI [facility] reports they have the [employer] health program and they were called in a blood sugar on the Pt of 447. She states the Pt reports he has only had a milk so far this morning. Pt takes Actos daily and Metformin twice a day. Pt is asymptomatic. Brannon SAHNI told Pt to start drinking lots of water. Please call and advise. documented in this encounterElyria Memorial Hospital09-29-2022 Miscellaneous Notes* Telephone Encounter - Michelle Oakes - 05/30/2022 8:13 AM EDT Frida called and Michael fell with head strike, went to ED last evening, dropped drill on foot, having headaches, problems with sensations in legs now. Headaches worsening and requesting advisement. Thank you, Michelle Oakes documented in this encounterElyria Memorial Hospital09-28-2022 Miscellaneous Notes* Telephone Encounter - Luis E Agudelo LPN - 05/29/2022 1:34 PM EDT Received fax from [facility] requesting pt's last A1c as pt is in there program. Last A1c faxed to [phone] as requested. Luis E Agudelo LPN documented in this encounterElyria Memorial Hospital09-27-2022 History of Present illness Narrative* Karin Hamm APRN.CUSTOMER RELATIONS ASSISTANT - 05/28/2022 4:20 PM EDT Called to [...] LOC, Referred to ED documented in this encounterElyria Memorial Hospital09-27-2022 Miscellaneous Notes* Telephone Encounter - Nadir Grady [...] would have to be responsible to notify [facility] of no longer needing services and would need to let provider's office know when he is in need of prescriptions through [facility]. Brannon verbalizes understanding and plans to contact [...] Also we just got a call from [facility] asking us to send the Actos script to them yesterday ??? Not sure how they know it went to [facility] (which is what the patient wanted) but since the person who responded to the message was not aware he was not wanting things at [facility] it got sent there. So if he is not going to use [facility] then he needs to let them know and then update use when he wants meds sent to [facility]. However I think this is a bad idea since he can not read. * Telephone Encounter - Nury Jo RN - 05/28/2022 9:38 AM EDT Brannon [facility] with [facility] calls to update provider on patient. Brannon reports that patient has stopped taking sertraline and amantadine d/t possible side effect of dizziness. She reports that he is removing the pills from his pill packs supplied by [facility] but patient isn't able to read so she is not certain how he is actually identifying the correct pills to remove. Patient reported to Brannon that he is no longer going to receive medication pill packs from [facility] and [facility] nurse to fill weekly for [...] Kern. Brannon requesting a call back at [phone] if provider wants any changes or any response to the above. Please review and advise, Nury Jo RN documented in this encounterElyria Memorial Hospital09-23-2022 Miscellaneous Notes* Telephone Encounter - Karla Wadsworth MA - 05/24/2022 6:01 PM EDT Patient notified. Karla Wadsworth MA * Telephone Encounter - Nadir Grady MD - 05/24/2022 5:58 PM EDT Let patient know Actos sent to [facility] for 90 days. The following approved medication requests have been transmitted electronically. Requested Prescriptions Signed Prescriptions Disp Refills pioglitazone (ACTOS) 15 mg tablet 90 tablet 1 Sig: Take 1 tablet by mouth once daily. Authorizing Provider: NADIR GRADY MD * Telephone Encounter - Adrianne Howard LPN - 05/24/2022 4:13 PM EDT Patient called, he would like prescription sent to [facility] today. * Telephone Encounter - Karla Wadsworth MA - 05/24/2022 3:15 PM EDT Did contact Frida and she indicated that she did speak with Michael and she is ok with medication being sent to [facility] but would need some system for Michael. Was talking to Frida about sending the medication for [facility] our phone . Karla Wadsworth MA * Telephone Encounter - Karla Wadsworth MA - 05/24/2022 1:10 PM EDT Spoke with Brannon and gave her PCP instructions. Also spoke with patient and he would like for this medication to go to [facility]. In fact he would like all of this medication to go to [facility]. I will contact Brannon to let her know. Karla Wadsworth MA * Telephone Encounter - Nadir Grady MD - 05/23/2022 8:43 AM EDT Let Brannon with [facility] care network know his Januvia is most likely the most expensive. Looking at his med sheet from [facility] the next two most costly are his [...] - 05/21/2022 10:54 AM EDT [facility] and reported [...] she will contact them.Pt was seen in [facility] 05-14-22 and dx with ANA. Pt not able to do virtual apts. Please review and instruct Frida. Willing to bring in for an apt. Let Frida know. Pt's pharmacy is [facility] and gets pre packed sheets. Selma Echevarria LPN documented in this encounterElyria Memorial Hospital09-14-2022 Miscellaneous Notes* Telephone Encounter - Martha Boston [...] Rest of labs wnl. documented in this encounterElyria Memorial Hospital09-12-2022 Instructions* Patient Instructions* Martha Boston PA-C - 05/13/2022 8:09 AM EDT Please complete labs today. We have increased zoloft to 50mg. Follow up in 6 weeks for recheck on the increase of zoloft. Follow up in 6 months medicare wellness exam. Make sure to schedule your eye exam documented in this encounterElyria [facility]09-12-2022 History of Present illness Narrative* Martha Boston [...] Multi level, worse L2-L3 Diabetes ([facility]) Diabetic eye exam ([facility]) 03/19/2017 Last done: 10/01/2018 Elevated LFTs [...] Date 2D ECHO (EXEP) 01/16/2017 EF=60%, 1+ CA and TI CATARACT EXTRACTION HX Left 10/2019 [...] tablet by mouth once daily. Managed by [facility] omega-3 fatty acids 1,000 mg [...] exam Martha Boston PA-C documented in this encounterElyria [facility] Hospital09-02-2022 Miscellaneous Notes* Telephone Encounter - Abdirahman Duong [...] you. Abdirahman Duong RN documented in this encounterElyria [facility] Hospital09-01-2022 Miscellaneous Notes* Telephone Encounter - Nadir Grady MD - 05/02/2022 4:02 PM EDT Noted. * Telephone Encounter - Jennifer Blue RN - 05/02/2022 10:47 AM EDT Brannon Odonnell LPN from [facility] called and is notified of providers [...] 3:00 PM EDT Brannon Odonnell LPN from [facility] calling patient is complaining of his mouth burning if he eats any pickles or ketchup. He eats a lot of potato chips for the salt, that does not bother him. Patient has no open sores in his mouth at all. Asking if any of his medications may be causing this? Please advise documented in this encounterElyria [facility] Hospital08-30-2022 Miscellaneous Notes* Telephone Encounter - Luis E [...] 04/30/2022 8:48 AM EDT Brannon SAHNI from [facility] calling to check status of note. [...] 04/26/2022 9:45 AM EDT Brannon SAHNI from [facility] calls to report that patient had seen [...] advise, Beverly Rawls RN documented in this encounterElyria [facility] Hospital08-27-2022 Miscellaneous Notes* Telephone Encounter - Luis E Agudelo LPN - 04/27/2022 11:34 AM EDT Please see pt's update. Luis E Agudelo LPN documented in this encounterElyria Memorial Hospital08-25-2022 Instructions* Patient Instructions* Rin Gagnon APRN.MIGEL - 04/25/2022 2:35 PM EDT Ortostatic Hypotension. [...] squatting or stationery bicycling. documented in this encounterElyria Memorial Hospital08-25-2022 History of Present illness Narrative* Rin Gagnon TRANSMISSION AND COORDINATION ENGINEER.CUSTOMER RELATIONS ASSISTANT - 04/25/2022 1:07 PM EDT Images from the original note were not included. [facility] for General Neurology New Patient Evaluation [...] Date Autonomic Reflex Tilt QSART Skin Biopsy Crystal Machining Coordinator Echo EEG Labs: SPEP- normal, HGBA1C 7.1, [...] Date 2D ECHO (EXEP) 01/16/2017 EF=60%, 1+ CA and TI CATARACT EXTRACTION HX Left 10/2019 [...] Extension 5/5 5/5 Movement/Coordination Finger-to- nose-finger and [id number]-av-icqm intact bilaterally. No evidence of ataxia arms. [...] would be difficulty to go to [place] location to complete. Medications can also be [...] EMERGENT procedures): No specimen collected. Rin Gagnon APRN.CUSTOMER RELATIONS ASSISTANT I spent a total of 90 minutes on the date of the service which included preparing to see the patient, [id number] patient care, completing clinical documentation, obtaining and/or [...] Coronary Stent Placement Diabetic Eye Exam (Formerly [facility]) Leg Pain, Bilateral Medicare Annual Wellness Visit, Subsequent Gerd Without Esophagitis Neuropathy Primary Insomnia Abnormal Dreams Medication Management Illiteracy Anemia of Chronic Disease History of Covid-19 No orders found for this visit on 04/25/22. Rin Gagnon APRN.MIGEL General Neurology [address] [place]. [address] Appointment: [phone] 1. This office note has been dictated [...] of your PCP/referring physician documented in this encounterElyria Memorial Hospital08-19-2022 History of Present illness Narrative* Martha Boston [...] and that's how he was taken to [facility] ER. He himself recently had [...] Date 2D ECHO (EXEP) 01/16/2017 EF=60%, 1+ CA and TI CATARACT EXTRACTION HX Left 10/2019 [...] tablet by mouth once daily. Managed by [facility] omega-3 fatty acids 1,000 mg [...] TABLET Martha Boston PA-C documented in this encounterElyria Memorial Hospital08-09-2022 Miscellaneous Notes* Telephone Encounter - Nicola Valentino Ma - 04/09/2022 9:46 AM EDT Frida was notified and will have patient call to schedule ER follow up Nicola Valentino Ma * Telephone Encounter - Nadir Grady MD - 04/08/2022 10:02 PM EDT Please advise Frida that we do not have up to date papers listing her as power of trade mark attorney for health care. Also this title [...] tremor that led to ER visit at [facility] over the weekend. Patient having increased stress [...] [facility] and therefore are reaching out to . Please advise. Thank you. CALLIE Rodriguez documented in this encounterElyria Memorial Hospital08-03-2022 Miscellaneous Notes* Telephone Encounter - Nadir Grady [...] you. Selma Echevarria LPN documented in this encounterElyria Memorial Hospital07-25-2022 Miscellaneous Notes* Telephone Encounter - Rashawn Hewitt [...] need to notify patient. Karla Wadsworth MA Hnana: 10/2021 Nov; 05/2022 Last refill: 03/2021 * [...] patient. Barbara Johnson Pss documented in this encounterElyria Memorial Hospital07-20-2022 Miscellaneous Notes* Telephone Encounter - Joceline Krueger Pss - 03/20/2022 12:54 PM EDT Called the patient and relayed the provider's message of CT results. The patient understood the information provided. * Telephone Encounter - Joceline Krueger Pss - 03/20/2022 12:54 PM EDT ----- Message from Jenna Jim APRN.CUSTOMER RELATIONS ASSISTANT sent at 03/19/2022 5:21 PM EDT ----- CT of brain is normal and does not show any evidence of bleed. documented in this encounterElyria Memorial Hospital07-19-2022 History of Present illness Narrative* Elzbieta Machuca, [...] 19, 2022 3:05 PM documented in this encounterElyria Memorial Hospital07-19-2022 Miscellaneous Notes* Addendum Note - Jenna Jim [...] filed. Thank you, * Telephone Encounter - Lokesh Trevino, CT - 03/18/2022 3:09 PM EDT Pt states [...] Thank you. CALLIE Rodriguez documented in this encounterElyria Memorial Hospital06-28-2022 Miscellaneous Notes* Telephone Encounter - Zaira Currie [...] patient. Zaira Singh Pss documented in this encounterElyria Memorial Hospital06-24-2022 Miscellaneous Notes* Telephone Encounter - Jenna Jim APRN.CNP - 02/22/2022 1:29 PM EDT Spoke with patient's RANJEET Frida. Discussed consult to autonomic clinic to address orthostatic hypotension prior to initiation of other medications. She is agreeable and states she would be able to drive patient to [place] (she lives in [place]). Consult placed. Will reach out to scheduling [...] may be able to drive him to [place] if that is closest location. Pt asking this provider to call his RANJEET to discuss this with her. Call placed to Frida; pt's RANJEET. No answer and voicemail left. Will attempt to contact again tomorrow. * Telephone Encounter - Joceline Krueger Pss - 02/19/2022 3:06 PM EDT Cardiac testing done at [facility] has been scanned. 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 Previously noted to have low blood pressure [...] العلي LPN - 02/19/2022 10:00 AM EDT Frida/Nrusbu-uy-iei/POA is calling, has not heard back from the office on the next step would be. Please advise. Symone العلي LPN documented in this encounterElyria Memorial Hospital06-09-2022 History of Present illness Narrative* Jenna Jim APRN.CUSTOMER RELATIONS ASSISTANT - 02/07/2022 8:00 AM EDT Images from the original note were not included. [facility] [place] New Patient visit New Patient Consultation February [...] Per Dr. Grady 10/25/21: Patient went to [facility] on 10/16/2021 after having 2 syncopal episodes [...] dizzy before each episode. Patient went to [place] ER 10/16/2021 and BP then was 117/75, [...] Date 2D ECHO (EXEP) 01/16/2017 EF=60%, 1+ CA and TI CATARACT EXTRACTION HX Left 10/2019 [...] tablet by mouth once daily. 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 Previously noted to have low blood pressure [...] with pain management as well. Jenna Jim APRN.CNP I spent a total of 60 minutes on the date of the service which included preparing to see the patient, [id number] patient care, completing clinical documentation, obtaining and/or reviewing separately obtained history, performing a medically appropriate examination and counseling and educating the patient/family/caregiver. documented in this encounterElyria Memorial Hospital06-01-2022 Miscellaneous Notes* Telephone Encounter - Nadir Grady [...] you. Madhuri Chapa LPN documented in this encounterElyria Memorial Hospital05-26-2022 Miscellaneous Notes* Telephone Encounter - Selma Echevarria LPN - 01/24/2022 10:42 AM EDT Tian with [facility] called and requesting copy of last OV for pt. Pt was identified by name and date of . Faxed to [phone]. Selma Echevarria LPN documented in this encounterElyria Memorial Hospital05-06-2022 History of Present illness Narrative* Luis E Agudelo LPN - 01/04/2022 11:15 AM EDT Scan on 01/04/2022 9:59 AM by External Provider: Consultation - Cardiology documented in this encounterElyria Memorial Hospital04-14-2022 Evaluation note* Diagnosis Onset Date Resolution Status Bilateral carotid artery stenosis acute Syncope acute Essential (primary) hypertension chronic Hyperlipidemia chronic History of loop recorder December 13, 2021 acute Syncope acute [facility] Work Phone: 1(463) 196-580104-14-2022 Evaluation note* Diagnosis Onset Date Resolution Status Bilateral carotid artery stenosis acute Syncope acute Essential (primary) hypertension chronic Hyperlipidemia chronic History of loop recorder December 13, 2021 acute Syncope acute History of loop recorder December 13, 2021 acute Syncope acute Atherosclerotic heart diseas e of [place] coronary artery without angina pectoris chronic Bilateral carotid artery stenosis acute History of loop recorder December 13, 2021 acute Hypotension acute Syncope acute Atherosclerotic heart diseas e of [place] coronary artery without angina pectoris chronic Essential (primary) hypertension chronic History of coronary artery stent placement July 232020 chronic Hyperlipidemia chronic History of loop recorder December 13, 2021 acute Syncope acute [facility] Work Phone: 1(678) 563-350904-14-2022 Evaluation note* Diagnosis Onset Date Resolution Status Bilateral carotid artery stenosis acute Syncope acute Essential (primary) hypertension chronic Hyperlipidemia chronic History of loop recorder December 13, 2021 acute Syncope acute History of loop recorder December 13, 2021 acute Syncope acute Atherosclerotic heart diseas e of [place] coronary artery without angina pectoris chronic Bilateral carotid artery stenosis acute History of loop recorder December 13, 2021 acute Hypotension acute Syncope acute Atherosclerotic heart diseas e of [place] coronary artery without angina pectoris chronic Essential (primary) hypertension chronic History of coronary artery stent placement July 232020 chronic Hyperlipidemia chronic History of loop recorder December 13, 2021 acute Syncope acute Bilateral carotid artery stenosis acute Chest pain acute Atherosclerotic heart diseas e of [place] coronary artery without angina pectoris chronic Essential (primary) hypertension chronic History of coronary artery stent placement July 232020 chronic Hyperlipidemia [facility] Work Phone: 1(864) 500-100104-14-2022 Evaluation note* Diagnosis Onset Date Resolution Status History of loop recorder December 13, 2021 acute Syncope acute History of loop recorder December 13, 2021 acute Syncope acute Atherosclerotic heart diseas e of [place] coronary artery without angina pectoris chronic Bilateral carotid artery stenosis acute History of loop recorder December 13, 2021 acute Hypotension acute Syncope acute Atherosclerotic heart diseas e of [place] coronary artery without angina pectoris chronic Essential (primary) hypertension chronic History of coronary artery stent placement July 232020 chronic Hyperlipidemia chronic History of loop recorder December 13, 2021 acute Syncope acute Bilateral carotid artery stenosis acute Chest pain acute Atherosclerotic heart diseas e of [place] coronary artery without angina pectoris chronic Essential (primary) hypertension chronic History of coronary artery stent placement July 232020 chronic Hyperlipidemia [facility] Work Phone: 1(808) 274-743604-14-2022 Evaluation note* Diagnosis Onset Date Resolution Status Atherosclerotic heart diseas e of [place] coronary artery without angina pectoris chronic History of loop recorder December 13, 2021 chronic Syncope October, chronic Atherosclerotic heart diseas e of [place] coronary artery without angina pectoris chronic Bilateral carotid artery stenosis chronic Essential (primary) hypertension chronic History of coronary artery stent placement July 232020 chronic History of loop recorder December 13, 2021 chronic Hyperlipidemia chronic Hypotension chronic Syncope October, chronic History of loop recorder December 13, 2021 chronic Syncope October, chronic Atherosclerotic heart diseas e of [place] coronary artery without angina pectoris chronic Bilateral carotid artery stenosis chronic Essential (primary) hypertension chronic History of coronary artery stent placement July 232020 chronic Hyperlipidemia chronic Syncope October, chronic Atherosclerotic heart diseas e of [place] coronary artery without angina pectoris chronic Bilateral carotid artery stenosis chronic History of coronary artery stent placement July 232020 chronic History of loop recorder December 13, 2021 chronic Hyperlipidemia chronic Hypotension chronic Syncope October, [facility] Work Phone: 1(664) 820-814804-14-2022 Evaluation note* Diagnosis Onset Date Resolution Status Atherosclerotic heart diseas e of [place] coronary artery without angina pectoris chronic Bilateral carotid artery stenosis chronic History of loop recorder December 13, 2021 chronic Hyperlipidemia chronic Hypotension chronic Syncope October, chronic [facility] Work Phone: 1(203) 602-774404-14-2022 Miscellaneous Notes* Telephone Encounter - Karen Piper RP - 12/13/2021 1:37 PM EDT Kai spoke [...] if needs additional assistance. Karen Piper PharmD, [facility] Primary Care Clinical Pharmacist [facility] * Telephone Encounter - Karen Piper RPh - 12/13/2021 12:49 PM EDT Kai called Frida but unable to reach, LEFT MESSAGE ON MACHINE to return call to office. Karen Piper PharmD, [facility] Primary Care Clinical Pharmacist [facility] * Telephone Encounter - Beverly Rawls RN [...] advise, Beverly Rawls RN documented in this encounterElyria Memorial Hospital03-24-2022 Miscellaneous Notes* Telephone Encounter - Paula Donaldson LPN - 11/22/2021 10:47 AM EDT Patient notified of results, verbalizes understanding of instructions. Paula Donaldson LPN * Telephone Encounter - Nadir Grady MD - 11/22/2021 9:47 AM EDT Let patient know urine and blood protein studies were normal. Bleeding studies were normal. BMP was ok except for elevated blood sugar. documented in this encounterElyria Memorial Hospital11-22-2021 Evaluation note* Diagnosis Onset Date Resolution Status Atherosclerotic heart diseas e of [place] coronary artery without angina pectoris chronic Bilateral carotid artery stenosis chronic Essential (primary) hypertension chronic History of coronary artery stent placement July 232020 chronic Hyperlipidemia chronic Syncope October, chronic Atherosclerotic heart diseas e of [place] coronary artery without angina pectoris chronic Bilateral carotid artery stenosis chronic History of coronary artery stent placement July 232020 chronic History of loop recorder December 13, 2021 chronic Hyperlipidemia chronic Hypotension chronic Syncope October, [facility] Work Phone: 1(135) 237-506910-29-2021 Miscellaneous Notes* Telephone Encounter - Jourdan Nava [...] 5 days- please read instructions when you pickers 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 If chest symptoms persist follow-up with PCP or picking tech. Medications sent to [facility] in [place]. Thanks, Ade Garcia APRN.MIGEL documented in this encounterElyria Memorial Hospital10-27-2021 History of Present illness Narrative* hCaz Pastor RT(R) - 06/27/2021 3:20 PM EDT [...] 27, 2021 3:20 PM documented in this encounterElyria Memorial Hospital02-08-2021 History of Present illness Narrative* Chaz Pastor [...] 09, 2020 10:30 AM documented in this encounterElyria Memorial Hospital01-08-2021 History of Present illness Narrative* Chaz Pastor)Manish - 09/08/2020 8:50 AM EST Radiology Service [...] 08, 2020 8:57 AM documented in this encounterElyria Memorial Hospital02-02-2017 History of Past illness Narrative* Problem Noted Date Resolved Date Well adult exam 10/03/2016 04/12/2020 Overview: last done: 07/16/19. does not want colonoscopies. Other physical therapy 08/16/2010 0 Sprain of neck 07/30/2010 08/30/2010 Unspecified pruritic disorder 03/02/2009 Cervicalgia 10/16/2006 10/30/2018 Hyperlipidemia 08/04/2015 documented as of this encounter (statuses as of 12/03/2021) [facility] of Past illness Narrative* Problem Noted Date Resolved Date Well adult exam 10/03/2016 04/12/2020 Overview: last done: 07/16/19. does not want colonoscopies. Other physical therapy 08/16/2010 0 Sprain of neck 07/30/2010 08/30/2010 Unspecified pruritic disorder 03/02/2009 Cervicalgia 10/16/2006 10/30/2018 Hyperlipidemia 08/04/2015 documented as of this encounter (statuses as of 12/13/2021) [facility] of [facility] illness Narrative* Problem Noted Date Resolved Date Well adult exam 10/03/2016 04/12/2020 Overview: last done: 07/16/19. does not want colonoscopies. Other physical therapy 08/16/2010 0 Sprain of neck 07/30/2010 08/30/2010 Unspecified pruritic disorder 03/02/2009 Cervicalgia 10/16/2006 10/30/2018 Hyperlipidemia 08/04/2015 documented as of this encounter (statuses as of 01/07/2022) [facility] illness Narrative* Problem Noted Date Resolved Date Well adult exam 10/03/2016 04/12/2020 Overview: last done: 07/16/19. does not want colonoscopies. Other physical therapy 08/16/2010 0 Sprain of neck 07/30/2010 08/30/2010 Unspecified pruritic disorder 03/02/2009 Cervicalgia 10/16/2006 10/30/2018 Hyperlipidemia 08/04/2015 documented as of this encounter (statuses as of 01/24/2022) [facility] illness Narrative* Problem Noted Date Resolved Date Well adult exam 10/03/2016 04/12/2020 Overview: last done: 07/16/19. does not want colonoscopies. Other physical therapy 08/16/2010 0 Sprain of neck 07/30/2010 08/30/2010 Unspecified pruritic disorder 03/02/2009 Cervicalgia 10/16/2006 10/30/2018 Hyperlipidemia 08/04/2015 documented as of this encounter (statuses as of 01/30/2022) [facility] Narrative* Problem Noted Date Resolved Date Well adult exam 10/03/2016 04/12/2020 Overview: last done: 07/16/19. does not want colonoscopies. Other physical therapy 08/16/2010 0 Sprain of neck 07/30/2010 08/30/2010 Unspecified pruritic disorder 03/02/2009 Cervicalgia 10/16/2006 10/30/2018 Hyperlipidemia 08/04/2015 documented as of this encounter (statuses as of 01/31/2022) [facility] Narrative* Problem Noted Date Resolved Date Well adult exam 10/03/2016 04/12/2020 Overview: last done: 07/16/19. does not want colonoscopies. Other physical therapy 08/16/2010 0 Sprain of neck 07/30/2010 08/30/2010 Unspecified pruritic disorder 03/02/2009 Cervicalgia 10/16/2006 10/30/2018 Hyperlipidemia 08/04/2015 documented as of this encounter (statuses as of 02/11/2022) [facility] Narrative* Problem Noted Date Resolved Date Well adult exam 10/03/2016 04/12/2020 Overview: last done: 07/16/19. does not want colonoscopies. Other physical therapy 08/16/2010 0 Sprain of neck 07/30/2010 08/30/2010 Unspecified pruritic disorder 03/02/2009 Cervicalgia 10/16/2006 10/30/2018 Hyperlipidemia 08/04/2015 documented as of this encounter (statuses as of 02/22/2022) [facility] Narrative* Problem Noted Date Resolved Date Well adult exam 10/03/2016 04/12/2020 Overview: last done: 07/16/19. does not want colonoscopies. Other physical therapy 08/16/2010 0 Sprain of neck 07/30/2010 08/30/2010 Unspecified pruritic disorder 03/02/2009 Cervicalgia 10/16/2006 10/30/2018 Hyperlipidemia 08/04/2015 documented as of this encounter (statuses as of 02/26/2022) [facility] Narrative* Problem Noted Date Resolved Date Well adult exam 10/03/2016 04/12/2020 Overview: last done: 07/16/19. does not want colonoscopies. Other physical therapy 08/16/2010 0 Sprain of neck 07/30/2010 08/30/2010 Unspecified pruritic disorder 03/02/2009 Cervicalgia 10/16/2006 10/30/2018 Hyperlipidemia 08/04/2015 documented as of this encounter (statuses as of 03/19/2022) [facility] Narrative* Problem Noted Date Resolved Date Well adult exam 10/03/2016 04/12/2020 Overview: last done: 07/16/19. does not want colonoscopies. Other physical therapy 08/16/2010 0 Sprain of neck 07/30/2010 08/30/2010 Unspecified pruritic disorder 03/02/2009 Cervicalgia 10/16/2006 10/30/2018 Hyperlipidemia 08/04/2015 documented as of this encounter (statuses as of 03/20/2022) [facility] Narrative* Problem Noted Date Resolved Date Well adult exam 10/03/2016 04/12/2020 Overview: last done: 07/16/19. does not want colonoscopies. Other physical therapy 08/16/2010 0 Sprain of neck 07/30/2010 08/30/2010 Unspecified pruritic disorder 03/02/2009 Cervicalgia 10/16/2006 10/30/2018 Hyperlipidemia 08/04/2015 documented as of this encounter (statuses as of 03/20/2022) [facility] Narrative* Problem Noted Date Resolved Date Well adult exam 10/03/2016 04/12/2020 Overview: last done: 07/16/19. does not want colonoscopies. Other physical therapy 08/16/2010 0 Sprain of neck 07/30/2010 08/30/2010 Unspecified pruritic disorder 03/02/2009 Cervicalgia 10/16/2006 10/30/2018 Hyperlipidemia 08/04/2015 documented as of this encounter (statuses as of 03/25/2022) [facility] Narrative* Problem Noted Date Resolved Date Well adult exam 10/03/2016 04/12/2020 Overview: last done: 07/16/19. does not want colonoscopies. Other physical therapy 08/16/2010 0 Sprain of neck 07/30/2010 08/30/2010 Unspecified pruritic disorder 03/02/2009 Cervicalgia 10/16/2006 10/30/2018 Hyperlipidemia 08/04/2015 documented as of this encounter (statuses as of 04/04/2022) [facility] Narrative* Problem Noted Date Resolved Date Well adult exam 10/03/2016 04/12/2020 Overview: last done: 07/16/19. does not want colonoscopies. Other physical therapy 08/16/2010 0 Sprain of neck 07/30/2010 08/30/2010 Unspecified pruritic disorder 03/02/2009 Cervicalgia 10/16/2006 10/30/2018 Hyperlipidemia 08/04/2015 documented as of this encounter (statuses as of 04/09/2022) [address]02-2017 History of Past illness Narrative* Problem Noted Date Resolved Date Well adult exam 10/03/2016 04/12/2020 Overview: last done: 07/16/19. does not want colonoscopies. Other physical therapy 08/16/2010 0 Sprain of neck 07/30/2010 08/30/2010 Unspecified pruritic disorder 03/02/2009 Cervicalgia 10/16/2006 10/30/2018 Hyperlipidemia 08/04/2015 documented as of this encounter (statuses as of 04/19/2022) [facility]02-02-2017 History of Past illness Narrative* Problem Noted Date Resolved Date Well adult exam 10/03/2016 04/12/2020 Overview: last done: 07/16/19. does not want colonoscopies. Other physical therapy 08/16/2010 0 Sprain of neck 07/30/2010 08/30/2010 Unspecified pruritic disorder 03/02/2009 Cervicalgia 10/16/2006 10/30/2018 Hyperlipidemia 08/04/2015 documented as of this encounter (statuses as of 04/26/2022) [facility] History of Past illness Narrative* Problem Noted Date Resolved Date Well adult exam 10/03/2016 04/12/2020 Overview: last done: 07/16/19. does not want colonoscopies. Other physical therapy 08/16/2010 0 Sprain of neck 07/30/2010 08/30/2010 Unspecified pruritic disorder 03/02/2009 Cervicalgia 10/16/2006 10/30/2018 Hyperlipidemia 08/04/2015 documented as of this encounter (statuses as of 04/28/2022) [facility] History of Past illness Narrative* Problem Noted Date Resolved Date Well adult exam 10/03/2016 04/12/2020 Overview: last done: 07/16/19. does not want colonoscopies. Other physical therapy 08/16/2010 0 Sprain of neck 07/30/2010 08/30/2010 Unspecified pruritic disorder 03/02/2009 Cervicalgia 10/16/2006 10/30/2018 Hyperlipidemia 08/04/2015 documented as of this encounter (statuses as of 04/30/2022) [facility] History of Past illness Narrative* Problem Noted Date Resolved Date Well adult exam 10/03/2016 04/12/2020 Overview: last done: 07/16/19. does not want colonoscopies. Other physical therapy 08/16/2010 0 Sprain of neck 07/30/2010 08/30/2010 Unspecified pruritic disorder 03/02/2009 Cervicalgia 10/16/2006 10/30/2018 Hyperlipidemia 08/04/2015 documented as of this encounter (statuses as of 05/02/2022) [facility] History of Past illness Narrative* Problem Noted Date Resolved Date Well adult exam 10/03/2016 04/12/2020 Overview: last done: 07/16/19. does not want colonoscopies. Other physical therapy 08/16/2010 0 Sprain of neck 07/30/2010 08/30/2010 Unspecified pruritic disorder 03/02/2009 Cervicalgia 10/16/2006 10/30/2018 Hyperlipidemia 08/04/2015 documented as of this encounter (statuses as of 05/03/2022) [facility] History of Past illness Narrative* Problem Noted Date Resolved Date Well adult exam 10/03/2016 04/12/2020 Overview: last done: 07/16/19. does not want colonoscopies. Other physical therapy 08/16/2010 0 Sprain of neck 07/30/2010 08/30/2010 Unspecified pruritic disorder 03/02/2009 Cervicalgia 10/16/2006 10/30/2018 Hyperlipidemia 08/04/2015 documented as of this encounter (statuses as of 05/13/2022) [facility] History of Past illness Narrative* Problem Noted Date Resolved Date Well adult exam 10/03/2016 04/12/2020 Overview: last done: 07/16/19. does not want colonoscopies. Other physical therapy 08/16/2010 0 Sprain of neck 07/30/2010 08/30/2010 Unspecified pruritic disorder 03/02/2009 Cervicalgia 10/16/2006 10/30/2018 Hyperlipidemia 08/04/2015 documented as of this encounter (statuses as of 05/15/2022) [facility] History of Past illness Narrative* Problem Noted Date Resolved Date Well adult exam 10/03/2016 04/12/2020 Overview: last done: 07/16/19. does not want colonoscopies. Other physical therapy 08/16/2010 0 Sprain of neck 07/30/2010 08/30/2010 Unspecified pruritic disorder 03/02/2009 Cervicalgia 10/16/2006 10/30/2018 Hyperlipidemia 08/04/2015 documented as of this encounter (statuses as of 05/25/2022) [facility] History of Past illness Narrative* Problem Noted Date Resolved Date Well adult exam 10/03/2016 04/12/2020 Overview: last done: 07/16/19. does not want colonoscopies. Other physical therapy 08/16/2010 0 Sprain of neck 07/30/2010 08/30/2010 Unspecified pruritic disorder 03/02/2009 Cervicalgia 10/16/2006 10/30/2018 Hyperlipidemia 08/04/2015 documented as of this encounter (statuses as of 05/28/2022) [facility] History of Past illness Narrative* Problem Noted Date Resolved Date Well adult exam 10/03/2016 04/12/2020 Overview: last done: 07/16/19. does not want colonoscopies. Other physical therapy 08/16/2010 0 Sprain of neck 07/30/2010 08/30/2010 Unspecified pruritic disorder 03/02/2009 Cervicalgia 10/16/2006 10/30/2018 Hyperlipidemia 08/04/2015 documented as of this encounter (statuses as of 05/29/2022) [facility] History of Past illness Narrative* Problem Noted Date Resolved Date Well adult exam 10/03/2016 04/12/2020 Overview: last done: 07/16/19. does not want colonoscopies. Other physical therapy 08/16/2010 0 Sprain of neck 07/30/2010 08/30/2010 Unspecified pruritic disorder 03/02/2009 Cervicalgia 10/16/2006 10/30/2018 Hyperlipidemia 08/04/2015 documented as of this encounter (statuses as of 05/30/2022) [facility] History of Past illness Narrative* Problem Noted Date Resolved Date Well adult exam 10/03/2016 04/12/2020 Overview: last done: 07/16/19. does not want colonoscopies. Other physical therapy 08/16/2010 0 Sprain of neck 07/30/2010 08/30/2010 Unspecified pruritic disorder 03/02/2009 Cervicalgia 10/16/2006 10/30/2018 Hyperlipidemia 08/04/2015 documented as of this encounter (statuses as of 06/20/2022) [facility] History of Past illness Narrative* Problem Noted Date Resolved Date Well adult exam 10/03/2016 04/12/2020 Overview: last done: 07/16/19. does not want colonoscopies. Other physical therapy 08/16/2010 0 Sprain of neck 07/30/2010 08/30/2010 Unspecified pruritic disorder 03/02/2009 Cervicalgia 10/16/2006 10/30/2018 Hyperlipidemia 08/04/2015 documented as of this encounter (statuses as of 06/25/2022) [facility] History of Past illness Narrative* Problem Noted Date Resolved Date Well adult exam 10/03/2016 04/12/2020 Overview: last done: 07/16/19. does not want colonoscopies. Other physical therapy 08/16/2010 0 Sprain of neck 07/30/2010 08/30/2010 Unspecified pruritic disorder 03/02/2009 Cervicalgia 10/16/2006 10/30/2018 Hyperlipidemia 08/04/2015 documented as of this encounter (statuses as of 06/25/2022) [facility] History of Past illness Narrative* Problem Noted Date Resolved Date Well adult exam 10/03/2016 04/12/2020 Overview: last done: 07/16/19. does not want colonoscopies. Other physical therapy 08/16/2010 0 Sprain of neck 07/30/2010 08/30/2010 Unspecified pruritic disorder 03/02/2009 Cervicalgia 10/16/2006 10/30/2018 Hyperlipidemia 08/04/2015 documented as of this encounter (statuses as of 06/26/2022) [facility] History of Past illness Narrative* Problem Noted Date Resolved Date Well adult exam 10/03/2016 04/12/2020 Overview: last done: 07/16/19. does not want colonoscopies. Other physical therapy 08/16/2010 0 Sprain of neck 07/30/2010 08/30/2010 Unspecified pruritic disorder 03/02/2009 Cervicalgia 10/16/2006 10/30/2018 Hyperlipidemia 08/04/2015 documented as of this encounter (statuses as of 06/27/2022) [facility] History of Past illness Narrative* Problem Noted Date Resolved Date Well adult exam 10/03/2016 04/12/2020 Overview: last done: 07/16/19. does not want colonoscopies. Other physical therapy 08/16/2010 0 Sprain of neck 07/30/2010 08/30/2010 Unspecified pruritic disorder 03/02/2009 Cervicalgia 10/16/2006 10/30/2018 Hyperlipidemia 08/04/2015 documented as of this encounter (statuses as of 07/02/2022) [facility] History of Past illness Narrative* Problem Noted Date Resolved Date Well adult exam 10/03/2016 04/12/2020 Overview: last done: 07/16/19. does not want colonoscopies. Other physical therapy 08/16/2010 0 Sprain of neck 07/30/2010 08/30/2010 Unspecified pruritic disorder 03/02/2009 Cervicalgia 10/16/2006 10/30/2018 Hyperlipidemia 08/04/2015 documented as of this encounter (statuses as of 07/02/2022) [facility] History of Past illness Narrative* Problem Noted Date Resolved Date Well adult exam 10/03/2016 04/12/2020 Overview: last done: 07/16/19. does not want colonoscopies. Other physical therapy 08/16/2010 0 Sprain of neck 07/30/2010 08/30/2010 Unspecified pruritic disorder 03/02/2009 Cervicalgia 10/16/2006 10/30/2018 Hyperlipidemia 08/04/2015 documented as of this encounter (statuses as of 07/05/2022) [facility] History of Past illness Narrative* Problem Noted Date Resolved Date Well adult exam 10/03/2016 04/12/2020 Overview: last done: 07/16/19. does not want colonoscopies. Other physical therapy 08/16/2010 0 Sprain of neck 07/30/2010 08/30/2010 Unspecified pruritic disorder 03/02/2009 Cervicalgia 10/16/2006 10/30/2018 Hyperlipidemia 08/04/2015 documented as of this encounter (statuses as of 07/10/2022) [facility] History of Past illness Narrative* Problem Noted Date Resolved Date Well adult exam 10/03/2016 04/12/2020 Overview: last done: 07/16/19. does not want colonoscopies. Other physical therapy 08/16/2010 0 Sprain of neck 07/30/2010 08/30/2010 Unspecified pruritic disorder 03/02/2009 Cervicalgia 10/16/2006 10/30/2018 Hyperlipidemia 08/04/2015 documented as of this encounter (statuses as of 07/10/2022) [facility] History of Past illness Narrative* Problem Noted Date Resolved Date Well adult exam 10/03/2016 04/12/2020 Overview: last done: 07/16/19. does not want colonoscopies. Other physical therapy 08/16/2010 0 Sprain of neck 07/30/2010 08/30/2010 Unspecified pruritic disorder 03/02/2009 Cervicalgia 10/16/2006 10/30/2018 Hyperlipidemia 08/04/2015 documented as of this encounter (statuses as of 07/11/2022) [facility] History of Past illness Narrative* Problem Noted Date Resolved Date Well adult exam 10/03/2016 04/12/2020 Overview: last done: 07/16/19. does not want colonoscopies. Other physical therapy 08/16/2010 0 Sprain of neck 07/30/2010 08/30/2010 Unspecified pruritic disorder 03/02/2009 Cervicalgia 10/16/2006 10/30/2018 Hyperlipidemia 08/04/2015 documented as of this encounter (statuses as of 07/12/2022) [facility] History of Past illness Narrative* Problem Noted Date Resolved Date Well adult exam 10/03/2016 04/12/2020 Overview: last done: 07/16/19. does not want colonoscopies. Other physical therapy 08/16/2010 0 Sprain of neck 07/30/2010 08/30/2010 Unspecified pruritic disorder 03/02/2009 Cervicalgia 10/16/2006 10/30/2018 Hyperlipidemia 08/04/2015 documented as of this encounter (statuses as of 07/29/2022) [facility] History of Past illness Narrative* Problem Noted Date Resolved Date Well adult exam 10/03/2016 04/12/2020 Overview: last done: 07/16/19. does not want colonoscopies. Other physical therapy 08/16/2010 0 Sprain of neck 07/30/2010 08/30/2010 Unspecified pruritic disorder 03/02/2009 Cervicalgia 10/16/2006 10/30/2018 Hyperlipidemia 08/04/2015 documented as of this encounter (statuses as of 07/30/2022) [facility] History of Past illness Narrative* Problem Noted Date Resolved Date Well adult exam 10/03/2016 04/12/2020 Overview: last done: 07/16/19. does not want colonoscopies. Other physical therapy 08/16/2010 0 Sprain of neck 07/30/2010 08/30/2010 Unspecified pruritic disorder 03/02/2009 Cervicalgia 10/16/2006 10/30/2018 Hyperlipidemia 08/04/2015 documented as of this encounter (statuses as of 08/05/2022) [facility] History of Past illness Narrative* Problem Noted Date Resolved Date Well adult exam 10/03/2016 04/12/2020 Overview: last done: 07/16/19. does not want colonoscopies. Other physical therapy 08/16/2010 0 Sprain of neck 07/30/2010 08/30/2010 Unspecified pruritic disorder 03/02/2009 Cervicalgia 10/16/2006 10/30/2018 Hyperlipidemia 08/04/2015 documented as of this encounter (statuses as of 08/07/2022) [facility] History of Past illness Narrative* Problem Noted Date Resolved Date Well adult exam 10/03/2016 04/12/2020 Overview: last done: 07/16/19. does not want colonoscopies. Other physical therapy 08/16/2010 0 Sprain of neck 07/30/2010 08/30/2010 Unspecified pruritic disorder 03/02/2009 Cervicalgia 10/16/2006 10/30/2018 Hyperlipidemia 08/04/2015 documented as of this encounter (statuses as of 08/23/2022) [facility] History of Past illness Narrative* Problem Noted Date Resolved Date Well adult exam 10/03/2016 04/12/2020 Overview: last done: 07/16/19. does not want colonoscopies. Other physical therapy 08/16/2010 0 Sprain of neck 07/30/2010 08/30/2010 Unspecified pruritic disorder 03/02/2009 Cervicalgia 10/16/2006 10/30/2018 Hyperlipidemia 08/04/2015 documented as of this encounter (statuses as of 08/23/2022) [facility] History of Past illness Narrative* Problem Noted Date Resolved Date Well adult exam 10/03/2016 04/12/2020 Overview: last done: 07/16/19. does not want colonoscopies. Other physical therapy 08/16/2010 0 Sprain of neck 07/30/2010 08/30/2010 Unspecified pruritic disorder 03/02/2009 Cervicalgia 10/16/2006 10/30/2018 Hyperlipidemia 08/04/2015 documented as of this encounter (statuses as of 09/03/2022) [facility] History of Past illness Narrative* Problem Noted Date Resolved Date Well adult exam 10/03/2016 04/12/2020 Overview: last done: 07/16/19. does not want colonoscopies. Other physical therapy 08/16/2010 0 Sprain of neck 07/30/2010 08/30/2010 Unspecified pruritic disorder 03/02/2009 Cervicalgia 10/16/2006 10/30/2018 Hyperlipidemia 08/04/2015 documented as of this encounter (statuses as of 09/04/2022) [facility] History of Past illness Narrative* Problem Noted Date Resolved Date Well adult exam 10/03/2016 04/12/2020 Overview: last done: 07/16/19. does not want colonoscopies. Other physical therapy 08/16/2010 0 Sprain of neck 07/30/2010 08/30/2010 Unspecified pruritic disorder 03/02/2009 Cervicalgia 10/16/2006 10/30/2018 Hyperlipidemia 08/04/2015 documented as of this encounter (statuses as of 09/06/2022) [facility] History of Past illness Narrative* Problem Noted Date Resolved Date Well adult exam 10/03/2016 04/12/2020 Overview: last done: 07/16/19. does not want colonoscopies. Other physical therapy 08/16/2010 0 Sprain of neck 07/30/2010 08/30/2010 Unspecified pruritic disorder 03/02/2009 Cervicalgia 10/16/2006 10/30/2018 Hyperlipidemia 08/04/2015 documented as of this encounter (statuses as of 09/24/2022) [facility] History of Past illness Narrative* Problem Noted Date Resolved Date Well adult exam 10/03/2016 04/12/2020 Overview: last done: 07/16/19. does not want colonoscopies. Other physical therapy 08/16/2010 0 Sprain of neck 07/30/2010 08/30/2010 Unspecified pruritic disorder 03/02/2009 Cervicalgia 10/16/2006 10/30/2018 Hyperlipidemia 08/04/2015 documented as of this encounter (statuses as of 09/24/2022) [facility] History of Past illness Narrative* Problem Noted Date Resolved Date Well adult exam 10/03/2016 04/12/2020 Overview: last done: 07/16/19. does not want colonoscopies. Other physical therapy 08/16/2010 0 Sprain of neck 07/30/2010 08/30/2010 Unspecified pruritic disorder 03/02/2009 Cervicalgia 10/16/2006 10/30/2018 Hyperlipidemia 08/04/2015 documented as of this encounter (statuses as of 09/24/2022) [facility] History of Past illness Narrative* Problem Noted Date Resolved Date Well adult exam 10/03/2016 04/12/2020 Overview: last done: 07/16/19. does not want colonoscopies. Other physical therapy 08/16/2010 0 Sprain of neck 07/30/2010 08/30/2010 Unspecified pruritic disorder 03/02/2009 Cervicalgia 10/16/2006 10/30/2018 Hyperlipidemia 08/04/2015 documented as of this encounter (statuses as of 10/02/2022) [facility] History of Past illness Narrative* Problem Noted Date Resolved Date Well adult exam 10/03/2016 04/12/2020 Overview: last done: 07/16/19. does not want colonoscopies. Other physical therapy 08/16/2010 0 Sprain of neck 07/30/2010 08/30/2010 Unspecified pruritic disorder 03/02/2009 Cervicalgia 10/16/2006 10/30/2018 Hyperlipidemia 08/04/2015 documented as of this encounter (statuses as of 10/08/2022) [facility] History of Past illness Narrative* Problem Noted Date Resolved Date Well adult exam 10/03/2016 04/12/2020 Overview: last done: 07/16/19. does not want colonoscopies. Other physical therapy 08/16/2010 0 Sprain of neck 07/30/2010 08/30/2010 Unspecified pruritic disorder 03/02/2009 Cervicalgia 10/16/2006 10/30/2018 Hyperlipidemia 08/04/2015 documented as of this encounter (statuses as of 10/15/2022) [facility] History of Past illness Narrative* Problem Noted Date Resolved Date Well adult exam 10/03/2016 04/12/2020 Overview: last done: 07/16/19. does not want colonoscopies. Other physical therapy 08/16/2010 0 Sprain of neck 07/30/2010 08/30/2010 Unspecified pruritic disorder 03/02/2009 Cervicalgia 10/16/2006 10/30/2018 Hyperlipidemia 08/04/2015 documented as of this encounter (statuses as of 10/24/2022) [facility] History of Past illness Narrative* Problem Noted Date Resolved Date Well adult exam 10/03/2016 04/12/2020 Overview: last done: 07/16/19. does not want colonoscopies. Other physical therapy 08/16/2010 0 Sprain of neck 07/30/2010 08/30/2010 Unspecified pruritic disorder 03/02/2009 Cervicalgia 10/16/2006 10/30/2018 Hyperlipidemia 08/04/2015 documented as of this encounter (statuses as of 11/05/2022) [facility] History of Past illness Narrative* Problem Noted Date Resolved Date Well adult exam 10/03/2016 04/12/2020 Overview: last done: 07/16/19. does not want colonoscopies. Other physical therapy 08/16/2010 0 Sprain of neck 07/30/2010 08/30/2010 Unspecified pruritic disorder 03/02/2009 Cervicalgia 10/16/2006 10/30/2018 Hyperlipidemia 08/04/2015 documented as of this encounter (statuses as of 11/05/2022) [facility] History of Past illness Narrative* Problem Noted Date Resolved Date Well adult exam 10/03/2016 04/12/2020 Overview: last done: 07/16/19. does not want colonoscopies. Other physical therapy 08/16/2010 0 Sprain of neck 07/30/2010 08/30/2010 Unspecified pruritic disorder 03/02/2009 Cervicalgia 10/16/2006 10/30/2018 Hyperlipidemia 08/04/2015 documented as of this encounter (statuses as of 11/12/2022) [facility] History of Past illness Narrative* Problem Noted Date Resolved Date Well adult exam 10/03/2016 04/12/2020 Overview: last done: 07/16/19. does not want colonoscopies. Other physical therapy 08/16/2010 0 Sprain of neck 07/30/2010 08/30/2010 Unspecified pruritic disorder 03/02/2009 Cervicalgia 10/16/2006 10/30/2018 Hyperlipidemia 08/04/2015 documented as of this encounter (statuses as of 11/14/2022) [facility] History of Past illness Narrative* Problem Noted Date Resolved Date Well adult exam 10/03/2016 04/12/2020 Overview: last done: 07/16/19. does not want colonoscopies. Other physical therapy 08/16/2010 0 Sprain of neck 07/30/2010 08/30/2010 Unspecified pruritic disorder 03/02/2009 Cervicalgia 10/16/2006 10/30/2018 Hyperlipidemia 08/04/2015 documented as of this encounter (statuses as of 11/21/2022) [facility] History of Past illness Narrative* Problem Noted Date Resolved Date Well adult exam 10/03/2016 04/12/2020 Overview: last done: 07/16/19. does not want colonoscopies. Other physical therapy 08/16/2010 0 Sprain of neck 07/30/2010 08/30/2010 Unspecified pruritic disorder 03/02/2009 Cervicalgia 10/16/2006 10/30/2018 Hyperlipidemia 08/04/2015 documented as of this encounter (statuses as of 11/28/2022) [facility] History of Past illness Narrative* Problem Noted Date Resolved Date Well adult exam 10/03/2016 04/12/2020 Overview: last done: 07/16/19. does not want colonoscopies. Other physical therapy 08/16/2010 0 Sprain of neck 07/30/2010 08/30/2010 Unspecified pruritic disorder 03/02/2009 Cervicalgia 10/16/2006 10/30/2018 Hyperlipidemia 08/04/2015 documented as of this encounter (statuses as of 11/29/2022) [facility] History of Past illness Narrative* Problem Noted Date Resolved Date Well adult exam 10/03/2016 04/12/2020 Overview: last done: 07/16/19. does not want colonoscopies. Other physical therapy 08/16/2010 0 Sprain of neck 07/30/2010 08/30/2010 Unspecified pruritic disorder 03/02/2009 Cervicalgia 10/16/2006 10/30/2018 Hyperlipidemia 08/04/2015 documented as of this encounter (statuses as of 01/08/2023) [facility] History of Past illness Narrative* Problem Noted Date Resolved Date Well adult exam 10/03/2016 04/12/2020 Overview: last done: 07/16/19. does not want colonoscopies. Other physical therapy 08/16/2010 0 Sprain of neck 07/30/2010 08/30/2010 Unspecified pruritic disorder 03/02/2009 Cervicalgia 10/16/2006 10/30/2018 Hyperlipidemia 08/04/2015 documented as of this encounter (statuses as of 02/04/2023) [facility] History of Past illness Narrative* Problem Noted Date Resolved Date Well adult exam 10/03/2016 04/12/2020 Overview: last done: 07/16/19. does not want colonoscopies. Other physical therapy 08/16/2010 0 Sprain of neck 07/30/2010 08/30/2010 Unspecified pruritic disorder 03/02/2009 Cervicalgia 10/16/2006 10/30/2018 Hyperlipidemia 08/04/2015 documented as of this encounter (statuses as of 02/24/2023) [facility] History of Past illness Narrative* Problem Noted Date Diagnosed Date Resolved Date Well adult exam 10/03/2016 04/12/2020 Overview: last done: 07/16/19. does not want colonoscopies. Other physical therapy 08/16/201008/30 Sprain of neck 07/30/2010 08/30/2010 Unspecified pruritic disorder 03/02/2009 04/12/2020 Cervicalgia 10/16/2006 10/30/2018 Hyperlipidemia 08/04/2015 documented as of this encounter (statuses as of 03/10/2023) [facility] History of Past illness Narrative* Problem Noted Date Diagnosed Date Resolved Date Well adult exam 10/03/2016 04/12/2020 Overview: last done: 07/16/19. does not want colonoscopies. Other physical therapy 08/16/201008/30 Sprain of neck 07/30/2010 08/30/2010 Unspecified pruritic disorder 03/02/2009 04/12/2020 Cervicalgia 10/16/2006 10/30/2018 Hyperlipidemia 08/04/2015 documented as of this encounter (statuses as of 04/01/2023) [facility] History of Past illness Narrative* Problem Noted Date Diagnosed Date Resolved Date Well adult exam 10/03/2016 04/12/2020 Overview: last done: 07/16/19. does not want colonoscopies. Other physical therapy 08/16/201008/30 Sprain of neck 07/30/2010 08/30/2010 Unspecified pruritic disorder 03/02/2009 04/12/2020 Cervicalgia 10/16/2006 10/30/2018 Hyperlipidemia 08/04/2015 documented as of this encounter (statuses as of 04/02/2023) [facility] History of Past illness Narrative* Problem Noted Date Diagnosed Date Resolved Date Well adult exam 10/03/2016 04/12/2020 Overview: last done: 07/16/19. does not want colonoscopies. Other physical therapy 08/16/201008/30 Sprain of neck 07/30/2010 08/30/2010 Unspecified pruritic disorder 03/02/2009 04/12/2020 Cervicalgia 10/16/2006 10/30/2018 Hyperlipidemia 08/04/2015 documented as of this encounter (statuses as of 04/03/2023) [facility] History of Past illness Narrative* Problem Noted Date Diagnosed Date Resolved Date Well adult exam 10/03/2016 04/12/2020 Overview: last done: 07/16/19. does not want colonoscopies. Other physical therapy 08/16/201008/30 Sprain of neck 07/30/2010 08/30/2010 Unspecified pruritic disorder 03/02/2009 04/12/2020 Cervicalgia 10/16/2006 10/30/2018 Hyperlipidemia 08/04/2015 documented as of this encounter (statuses as of 04/05/2023) [facility] History of Past illness Narrative* Problem Noted Date Diagnosed Date Resolved Date Well adult exam 10/03/2016 04/12/2020 Overview: last done: 07/16/19. does not want colonoscopies. Other physical therapy 08/16/201008/30 Sprain of neck 07/30/2010 08/30/2010 Unspecified pruritic disorder 03/02/2009 04/12/2020 Cervicalgia 10/16/2006 10/30/2018 Hyperlipidemia 08/04/2015 documented as of this encounter (statuses as of 04/12/2023) [facility] History of Past illness Narrative* Problem Noted Date Diagnosed Date Resolved Date Well adult exam 10/03/2016 04/12/2020 Overview: last done: 07/16/19. does not want colonoscopies. Other physical therapy 08/16/201008/30 Sprain of neck 07/30/2010 08/30/2010 Unspecified pruritic disorder 03/02/2009 04/12/2020 Cervicalgia 10/16/2006 10/30/2018 Hyperlipidemia 08/04/2015 documented as of this encounter (statuses as of 05/18/2023) [facility] History of Past illness Narrative* Problem Noted Date Diagnosed Date Resolved Date Well adult exam 10/03/2016 04/12/2020 Overview: last done: 07/16/19. does not want colonoscopies. Other physical therapy 08/16/201008/30 Sprain of neck 07/30/2010 08/30/2010 Unspecified pruritic disorder 03/02/2009 04/12/2020 Cervicalgia 10/16/2006 10/30/2018 Hyperlipidemia 08/04/2015 documented as of this encounter (statuses as of 06/19/2023) [facility] History of Past illness Narrative* Problem Noted Date Diagnosed Date Resolved Date Well adult exam 10/03/2016 04/12/2020 Overview: last done: 07/16/19. does not want colonoscopies. Other physical therapy 08/16/201008/30 Sprain of neck 07/30/2010 08/30/2010 Unspecified pruritic disorder 03/02/2009 04/12/2020 Cervicalgia 10/16/2006 10/30/2018 Hyperlipidemia 08/04/2015 documented as of this encounter (statuses as of 06/26/2023) [facility] History of Past illness Narrative* Problem Noted Date Diagnosed Date Resolved Date Well adult exam 10/03/2016 04/12/2020 Overview: last done: 07/16/19. does not want colonoscopies. Other physical therapy 08/16/201008/30 Sprain of neck 07/30/2010 08/30/2010 Unspecified pruritic disorder 03/02/2009 04/12/2020 Cervicalgia 10/16/2006 10/30/2018 Hyperlipidemia 08/04/2015 documented as of this encounter (statuses as of 06/27/2023) [facility] History of Past illness Narrative* Problem Noted Date Diagnosed Date Resolved Date Well adult exam 10/03/2016 04/12/2020 Overview: last done: 07/16/19. does not want colonoscopies. Other physical therapy 08/16/201008/30 Sprain of neck 07/30/2010 08/30/2010 Unspecified pruritic disorder 03/02/2009 04/12/2020 Cervicalgia 10/16/2006 10/30/2018 Hyperlipidemia 08/04/2015 documented as of this encounter (statuses as of 06/27/2023) [facility] History of Past illness Narrative* Problem Noted Date Diagnosed Date Resolved Date Well adult exam 10/03/2016 04/12/2020 Overview: last done: 07/16/19. does not want colonoscopies. Other physical therapy 08/16/201008/30 Sprain of neck 07/30/2010 08/30/2010 Unspecified pruritic disorder 03/02/2009 04/12/2020 Cervicalgia 10/16/2006 10/30/2018 Hyperlipidemia 08/04/2015 documented as of this encounter (statuses as of 07/06/2023) [facility] History of Past illness Narrative* Problem Noted Date Diagnosed Date Resolved Date Well adult exam 10/03/2016 04/12/2020 Overview: last done: 07/16/19. does not want colonoscopies. Other physical therapy 08/16/201008/30 Sprain of neck 07/30/2010 08/30/2010 Unspecified pruritic disorder 03/02/2009 04/12/2020 Cervicalgia 10/16/2006 10/30/2018 Hyperlipidemia 08/04/2015 documented as of this encounter (statuses as of 07/06/2023) [facility] History of Past illness Narrative* Problem Noted Date Diagnosed Date Resolved Date Well adult exam 10/03/2016 04/12/2020 Overview: last done: 07/16/19. does not want colonoscopies. Other physical therapy 08/16/201008/30 Sprain of neck 07/30/2010 08/30/2010 Unspecified pruritic disorder 03/02/2009 04/12/2020 Cervicalgia 10/16/2006 10/30/2018 Hyperlipidemia 08/04/2015 documented as of this encounter (statuses as of 07/06/2023) [facility] History of Past illness Narrative* Problem Noted Date Diagnosed Date Resolved Date Well adult exam 10/03/2016 04/12/2020 Overview: last done: 07/16/19. does not want colonoscopies. Other physical therapy 08/16/201008/30 Sprain of neck 07/30/2010 08/30/2010 Unspecified pruritic disorder 03/02/2009 04/12/2020 Cervicalgia 10/16/2006 10/30/2018 Hyperlipidemia 08/04/2015 documented as of this encounter (statuses as of 10/10/2023) [facility] History of Past illness Narrative* Problem Noted Date Diagnosed Date Resolved Date Well adult exam 10/03/2016 04/12/2020 Overview: last done: 07/16/19. does not want colonoscopies. Other physical therapy 08/16/201008/30 Sprain of neck 07/30/2010 08/30/2010 Unspecified pruritic disorder 03/02/2009 04/12/2020 Cervicalgia 10/16/2006 10/30/2018 Hyperlipidemia 08/04/2015 documented as of this encounter (statuses as of 10/11/2023) [facility] History of Past illness Narrative* Problem Noted Date Diagnosed Date Resolved Date Well adult exam 10/03/2016 04/12/2020 Overview: last done: 07/16/19. does not want colonoscopies. Other physical therapy 08/16/201008/30 Sprain of neck 07/30/2010 08/30/2010 Unspecified pruritic disorder 03/02/2009 04/12/2020 Cervicalgia 10/16/2006 10/30/2018 Hyperlipidemia 08/04/2015 documented as of this encounter (statuses as of 10/14/2023) [facility] History of Past illness Narrative* Problem Noted Date Diagnosed Date Resolved Date Well adult exam 10/03/2016 04/12/2020 Overview: last done: 07/16/19. does not want colonoscopies. Other physical therapy 08/16/201008/30 Sprain of neck 07/30/2010 08/30/2010 Unspecified pruritic disorder 03/02/2009 04/12/2020 Cervicalgia 10/16/2006 10/30/2018 Hyperlipidemia 08/04/2015 documented as of this encounter (statuses as of 10/16/2023) [facility] History of Past illness Narrative* Problem Noted Date Diagnosed Date Resolved Date Well adult exam 10/03/2016 04/12/2020 Overview: last done: 07/16/19. does not want colonoscopies. Other physical therapy 08/16/201008/30 Sprain of neck 07/30/2010 08/30/2010 Unspecified pruritic disorder 03/02/2009 04/12/2020 Cervicalgia 10/16/2006 10/30/2018 Hyperlipidemia 08/04/2015 documented as of this encounter (statuses as of 10/23/2023) [facility] History of Past illness Narrative* Problem Noted Date Diagnosed Date Resolved Date Well adult exam 10/03/2016 04/12/2020 Overview: last done: 07/16/19. does not want colonoscopies. Other physical therapy 08/16/201008/30 Sprain of neck 07/30/2010 08/30/2010 Unspecified pruritic disorder 03/02/2009 04/12/2020 Cervicalgia 10/16/2006 10/30/2018 Hyperlipidemia 08/04/2015 documented as of this encounter (statuses as of 10/23/2023) [facility] History of Past illness Narrative* Problem Noted Date Diagnosed Date Resolved Date Well adult exam 10/03/2016 04/12/2020 Overview: last done: 07/16/19. does not want colonoscopies. Other physical therapy 08/16/201008/30 Sprain of neck 07/30/2010 08/30/2010 Unspecified pruritic disorder 03/02/2009 04/12/2020 Cervicalgia 10/16/2006 10/30/2018 Hyperlipidemia 08/04/2015 documented as of this encounter (statuses as of 10/24/2023) [facility] History of Past illness Narrative* Problem Noted Date Diagnosed Date Resolved Date Well adult exam 10/03/2016 04/12/2020 Overview: last done: 07/16/19. does not want colonoscopies. Other physical therapy 08/16/201008/30 Sprain of neck 07/30/2010 08/30/2010 Unspecified pruritic disorder 03/02/2009 04/12/2020 Cervicalgia 10/16/2006 10/30/2018 Hyperlipidemia 08/04/2015 documented as of this encounter (statuses as of 10/30/2023) [facility] History of Past illness Narrative* Problem Noted Date Diagnosed Date Resolved Date Well adult exam 10/03/2016 04/12/2020 Overview: last done: 07/16/19. does not want colonoscopies. Other physical therapy 08/16/201008/30 Sprain of neck 07/30/2010 08/30/2010 Unspecified pruritic disorder 03/02/2009 04/12/2020 Cervicalgia 10/16/2006 10/30/2018 Hyperlipidemia 08/04/2015 documented as of this encounter (statuses as of 12/05/2023) [facility] December 04, 2023 1:04pm Note Date/Time December 04, 2023 1:04 pm [facility] Medical Records Department [address] [place] [id number] Instructions for Home/Discharge Instructions 12/04/23 1300 MR#: [id number] Acct: [id number] Name: MICHAEL BATES Jr. Rep #:[id number] [...] Pain, Noncardiac Discharge Orders/Prescriptions Prescriptions: Continued omega 5-nxg-xig-fish oil [Fish Oil] 1,000 mg (120 mg-180 [...] MD CC: Dr. Nadir Grady MD; Dr. Glidardo Walton MD ~ Signed [facility] Work Phone: Evaluation note* Diagnosis Onset Date Resolution Status Bilateral carotid artery stenosis acute Syncope acute Essential (primary) hypertension chronic Hyperlipidemia chronic [facility] Work Phone: Evaluation note* Diagnosis Type 2 diabetes mellitus without complication, without long-term current use of insulin (HCC) documented in this encounter [facility] note* Diagnosis Syncope, unspecified syncope type- Primary Orthostatic hypotension Facial numbness Disturbance of skin sensation Injury of head, sequela Chronic post-traumatic headache, not intractable Chronic post-traumatic headache documented in this encounter [facility] note* Diagnosis Orthostatic hypotension- Primary [facility] Diagnosis Mixed hyperlipidemia [facility] Diagnosis Injury of head, initial encounter [facility] Diagnosis Injury of head, initial encounter [facility] Diagnosis Chest pain, unspecified type [facility] Diagnosis Situational depression- Primary Adjustment disorder with depressed mood Panic disorder Panic disorder without agoraphobia [facility] Diagnosis Orthostatic hypotension- Primary Occipital neuralgia of right side Neuropathy Mononeuritis of unspecified site Syncope and collapse [facility] Diagnosis Encounter for immunization- Primary Need [...] with depressed mood [facility] Diagnosis Hyponatremia- Primary Hyposmolality and/or hyponatremia [facility] Diagnosis Injury of head, initial encounter- Primary LOC (loss of consciousness) (HCC) Other alteration of consciousness [facility] Diagnosis Type 2 diabetes mellitus without complication, without long-term current use of insulin (HCC) Mixed hyperlipidemia documented in this encounter [facility] note* Diagnosis Abnormal weight loss- Primary Loss of weight Muscle mass Other musculoskeletal symptoms referable to limbs Intractable chronic post-traumatic headache Chronic post-traumatic headache Neuropathy Mononeuritis of unspecified site Situational depression Adjustment disorder with depressed mood Fatigue, unspecified type Myalgia Mylagia and myositis, unspecified [facility] Diagnosis Anemia, unspecified type- Primary Hyperglycemia Other abnormal glucose Uncontrolled type 2 diabetes mellitus with hyperglycemia ([facility]) Blood sugar increased Other abnormal glucose [facility] Diagnosis Iron deficiency anemia, unspecified iron deficiency anemia type- Primary [facility] Diagnosis Anemia, unspecified type [facility] Diagnosis Abnormal weight loss- Primary Loss of weight [facility] Diagnosis Panic disorder Panic disorder without agoraphobia Situational depression Adjustment disorder with depressed mood Adjustment disorder with depressed mood [facility] Bladder wall thickening- Primary Other specified disorders of bladder Abnormal weight loss Loss of weight [facility]* Diagnosis Type 2 diabetes mellitus with diabetic neuropathy, without long-term current use of insulin (HCC)- Primary [facility] Diagnosis Bladder wall thickening- Primary Other specified disorders of bladder Benign non-nodular prostatic hyperplasia without lower urinary tract symptoms [facility] Diagnosis Dizziness- Primary Dizziness and giddiness Tremor Abnormal involuntary movements Hypotension, unspecified hypotension type Panic disorder Panic disorder without agoraphobia Situational depression Adjustment disorder with depressed mood Atypical chest pain Other chest pain Iron deficiency anemia, unspecified iron deficiency anemia type [facility] Diagnosis Foot injury, left, initial encounter- Primary [facility] Diagnosis Syncope, unspecified syncope type- Primary Orthostatic hypotension [facility] Diagnosis Type 2 diabetes mellitus with diabetic neuropathy, without long-term current use of insulin (HCC)- Primary Essential hypertension, benign [facility] Diagnosis Iron deficiency anemia, unspecified iron deficiency anemia type- Primary Anemia, unspecified type [facility] Diagnosis Long-segment Santos's esophagus- Primary Hiatal hernia Diaphragmatic hernia without mention of obstruction or gangrene Diverticulosis Diverticulosis of colon (without mention of hemorrhage) Other gastritis without bleeding [facility] Diagnosis Rhus dermatitis- Primary Contact dermatitis and other eczema due to plants (except food) Syncope, unspecified syncope type- Primary Orthostatic hypotension [facility] Diagnosis Syncope, unspecified syncope type- Primary Orthostatic hypotension [facility] Diagnosis Medicare annual wellness visit, subsequent- [...] esophagitis Esophageal reflux [facility] Diagnosis Elevated PSA- Primary Elevated prostate specific antigen (PSA) Uncontrolled type 2 diabetes mellitus with hyperglycemia (HCC) documented in this encounter [facility] note* Diagnosis Type 2 diabetes mellitus without complication, without long-term current use of insulin (HCC) [facility] Diagnosis Panic disorder- Primary Panic disorder without agoraphobia Syncope, unspecified syncope type- Primary Orthostatic hypotension [facility] Diagnosis Rash- Primary Rash and other nonspecific skin eruption [facility] Diagnosis Mouth sores- Primary Other and unspecified diseases of the oral soft tissues [facility] Diagnosis Patient left without being seen- Primary Surgical or other procedure not carried out because of patient's decision SOB (shortness of breath) Shortness of breath documented in this encounter [facility] note* Diagnosis Mouth pain- Primary Other and unspecified diseases of the oral soft tissues [facility] Diagnosis Abnormal weight loss Loss of weight [facility] Diagnosis Abnormal weight loss Loss of weight [facility] Diagnosis Onset Date Resolution Status Acute electrocardiogram changes acute Angina at rest acute Chest pain acute History of CAD (coronary artery disease) acute Hx of diabetes insipidus acu te Unstable angina acute [facility] Work Phone: Evaluation note* Diagnosis Onset Date Resolution Status Acute electrocardiogram changes acute Angina at rest acute Chest pain acute History of CAD (coronary artery disease) acute Hx of diabetes insipidus acu te Unstable angina acute Hyperlipidemia chronic Hypertension chronic Type 2 diabetes mellitus [facility] Work Phone: Evaluation note* Diagnosis Type 2 diabetes mellitus with diabetic neuropathy, without long-term current use of insulin ([facility]) [facility] Diagnosis Lip swelling- Primary Diseases of lips [facility] Diagnosis Onset Date Resolution Status Acute electrocardiogram changes resolved Angina at rest resolved Chest pain resolved Unstable angina resolved [facility] Work Phone: Evaluation note* Diagnosis Mixed hyperlipidemia documented in this encounter [facility] note* Diagnosis Left forearm pain- Primary Pain in limb Hand pain, left Pain in limb Contusion of left forearm, initial encounter Left forearm pain Pain in limb Hand pain, left Pain in limb documented in this encounter [facility] note* Diagnosis Anemia of chronic disease Anemia of other chronic disease documented in this encounter [facility] note* Diagnosis Type 2 diabetes mellitus without complication, without long-term current use of insulin (HCC) documented in this encounter [facility] note* Diagnosis Mixed hyperlipidemia- Primary Need for vaccination Need for prophylactic vaccination and inoculation against unspecified single disease Uncontrolled type 2 diabetes mellitus without complication, without long-term current use of insulin Coronary atherosclerosis due to lipid rich plaque Gastroesophageal reflux disease without esophagitis Esophageal reflux GERD without esophagitis- Primary Esophageal reflux Mixed hyperlipidemia documented in this encounter [facility] note* Diagnosis Mixed hyperlipidemia- Primary Need for vaccination Need for prophylactic vaccination and inoculation against unspecified single disease Uncontrolled type 2 diabetes mellitus without complication, without long-term current use of insulin Coronary atherosclerosis due to lipid rich plaque Gastroesophageal reflux disease without esophagitis Esophageal reflux Left forearm pain Pain in limb Hand pain, left Pain in limb [facility] Diagnosis Mixed hyperlipidemia- Primary Need for vaccination Need for prophylactic vaccination and inoculation against unspecified single disease Uncontrolled type 2 diabetes mellitus without complication, without long-term current use of insulin Coronary atherosclerosis due to lipid rich plaque Gastroesophageal reflux disease without esophagitis Esophageal reflux Foot injury, left, initial encounter [facility] Diagnosis Mixed hyperlipidemia- Primary Need for vaccination Need for prophylactic vaccination and inoculation against unspecified single disease Uncontrolled type 2 diabetes mellitus without complication, without long-term current use of insulin Coronary atherosclerosis due to lipid rich plaque Gastroesophageal reflux disease without esophagitis Esophageal reflux Abnormal weight loss Loss of weight [facility] Diagnosis Mixed hyperlipidemia- Primary Need for vaccination Need for prophylactic vaccination and inoculation against unspecified single disease Uncontrolled type 2 diabetes mellitus without complication, without long-term current use of insulin Coronary atherosclerosis due to lipid rich plaque Gastroesophageal reflux disease without esophagitis Esophageal reflux SOB (shortness of breath) Shortness of breath Chest pain, unspecified type [facility] Diagnosis Mixed hyperlipidemia- Primary Need for vaccination Need for prophylactic vaccination and inoculation against unspecified single disease Uncontrolled type 2 diabetes mellitus without complication, without long-term current use of insulin Coronary atherosclerosis due to lipid rich plaque Gastroesophageal reflux disease without esophagitis Esophageal reflux Acute pain of right shoulder [facility] Diagnosis Mixed hyperlipidemia- Primary Need for [...] long-term current use of insulin ([facility]) Essential hypertension, benign Uncontrolled type 2 diabetes mellitus with hyperglycemia ([facility]) Mixed hyperlipidemia Coronary atherosclerosis due to lipid rich plaque Adjustment disorder with depressed mood Anemia of chronic disease Anemia of other chronic disease Screening for depression Encounter for screening examination for other mental health and behavioral disorders Weight loss Loss of weight [facility] Diagnosis Mixed hyperlipidemia- Primary Need for [...] long-term current use of insulin ([facility]) [facility] Diagnosis Mixed hyperlipidemia- Primary [...] in joint, forearm [facility] Diagnosis Mixed hyperlipidemia- Primary Need for vaccination Need for prophylactic vaccination and inoculation against unspecified single disease Uncontrolled type 2 diabetes mellitus without complication, without long-term current use of insulin Coronary atherosclerosis due to lipid rich plaque Gastroesophageal reflux disease without esophagitis Esophageal reflux Wrist pain, right Pain in joint, forearm [facility] Diagnosis Mixed hyperlipidemia- Primary Need for vaccination Need for prophylactic vaccination and inoculation against unspecified single disease Uncontrolled type 2 diabetes mellitus without complication, without long-term current use of insulin Coronary atherosclerosis due to lipid rich plaque Gastroesophageal reflux disease without esophagitis Esophageal reflux Adverse effect of [id number] medication, initial encounter- Primary [facility] Diagnosis Mixed hyperlipidemia- Primary Need for vaccination Need for prophylactic vaccination and inoculation against unspecified single disease Uncontrolled type 2 diabetes mellitus without complication, without long-term current use of insulin Coronary atherosclerosis due to lipid rich plaque Gastroesophageal reflux disease without esophagitis Esophageal reflux Type 2 diabetes mellitus without complication, without long-term current use of insulin (HCC) [facility] Diagnosis Mixed hyperlipidemia- Primary Need for [...] of lung field [facility] Diagnosis Mixed hyperlipidemia- Primary Need for vaccination Need for prophylactic vaccination and inoculation against unspecified single disease Uncontrolled type 2 diabetes mellitus without complication, without long-term current use of insulin Coronary atherosclerosis due to lipid rich plaque Gastroesophageal reflux disease without esophagitis Esophageal reflux Abnormal chest x-ray Other nonspecific abnormal finding of lung field [facility] Diagnosis Mixed hyperlipidemia- Primary Need for [...] onset headache Headache documented in this encounter [facility] note* Diagnosis Mixed hyperlipidemia- Primary Need for vaccination Need for prophylactic vaccination and inoculation against unspecified single disease Uncontrolled type 2 diabetes mellitus without complication, without long-term current use of insulin Coronary atherosclerosis due to lipid rich plaque Gastroesophageal reflux disease without esophagitis Esophageal reflux [place] headache Headache New onset headache Headache [facility] Diagnosis Mixed hyperlipidemia- Primary Need for [...] insomnia Insomnia, unspecified [facility] Diagnosis Mixed hyperlipidemia- Primary Need for [...] stated as uncontrolled [facility] Diagnosis Mixed hyperlipidemia- Primary Need for [...] Other sleep disturbances [facility] Diagnosis Mixed hyperlipidemia- Primary Need for vaccination Need for prophylactic vaccination and inoculation against unspecified single disease Uncontrolled type 2 diabetes mellitus without complication, without long-term current use of insulin Coronary atherosclerosis due to lipid rich plaque Gastroesophageal reflux disease without esophagitis Esophageal reflux Anemia of chronic disease Anemia of other chronic disease [facility] Diagnosis Mixed hyperlipidemia- Primary Need for vaccination Need for prophylactic vaccination and inoculation against unspecified single disease Uncontrolled type 2 diabetes mellitus without complication, without long-term current use of insulin Coronary atherosclerosis due to lipid rich plaque Gastroesophageal reflux disease without esophagitis Esophageal reflux Type 2 diabetes mellitus without complication, without long-term current use of insulin (HCC) [facility] Author Gildardo Walton [facility] October 09, 2023 9:01pm Note Date/Time October 09, 2023 8 :07pm [facility] Medical Records Department [address] [place] [address] H&P Exam - Hospitalist 10/09/232004 MR#: [id number] Acct: [id number] Name: MICHAEL BATES Jr. Rep #:[id number] : 1955 68 From: Gildardo Escoto PCP: Dr. Nadir Grady MD Status:ADM IN Location: [address] 1 HPI - General General Date of [...] x-ray reviewed and discussed assessment and plan. [facility] Medical History Atherosclerotic heart disease of [place] coronary artery without angina pectoris Bilateral carotid artery stenosis BPH (benign prostatic hyperplasia) COVID-19 (06/2021) DDD (degenerative disc disease) Elevated LFTs Essential (primary) hypertension Hyperlipidemia Sciatica Syncope (10/2021) Tremor of both hands Type 2 diabetes mellitus Home Medications aspirin 81 mg tablet,delayed release 81 mg PO DAILY@0800 heart health 09/13/13 [History Last Taken 02/11/22] omega 9-wwk-ktj-fish oil 1,000 mg (120 mg-180 mg) capsule [...] Allergy Severe ANGIOEDEMA Verified 10/09/23 18:11 [From [facility]] perfume AdvReac Other Verified 10/09/23 18:11 [...] % (Auto) 63.1, Lymph % (Auto) 25.4, [place]% (Auto) 7.7, Eos % (Auto) 2.7, Baso [...] most likely unstable angina:Patient is being admitted [facility]. SHARRI risk score is 5 [...] in July 2020 reported EF normal with [place]ucopia-normal. Stage I?oxygen. Bubble contrast today negative. Mild [...] advanced directive. His brother is power of trade mark attorney for health. After discussion of benefits/risks procedures involved with full code, DNR CC arrest and DNR CC, the patient opted for DNRCC arrest with no intubation. Patient brother is in agreement Patient doesn't want artificial life support including intubation, tube feed, ventilator and/chest compression, central venous catheter, vasopressor and DC shock if needed Total time spent in pmlc-so-suoq encounter in discussion of advanced directive 17 minutes. Laboratory Results 10/09/23 18:30: WBC 7.1, RBC 3.87 L, Hgb 11.5 L, Hct 35.0 L, MCV 90.4, MCH 29.7,MCHC 32.9, RDW Std Deviation 42.6, RDW Coeff of Megan 13.0, Plt Count 210, MPV 9.5, Immature Gran % (Auto) 0.400, Neut % (Auto) 63.1, Lymph % (Auto) 25.4, [place]% (Auto) 7.7, Eos % (Auto) 2.7, Baso [...] 18:53 EST Reading Location ID and State: [address] [place] [address] Tel , Service support , Charges/Coding Visit Charges Inpatient E&M: 91709 Init Hosp L3 Procedures Hospitalists Procedures: 27187 Advncd Care Plan 30 Min 10/09/232100 <Electronically signed by Gildardo Walton MD> Cosigner Signature (if applicable): CC: Dr. Nadir Grady MD; Dr. Gildardo Walton MD~ Signed [facility] Work Phone: History and physical note Author Gildardo Walton [facility] December 03, 2023 6:51pm Note Date/Time December 03, 2023 6:51 pm [facility] Medical Records Department [address] [place] [address] H&P Exam - Hospitalist 04/03/24 1826 MR#: [id number] Acct: [id number] Name: MICHAEL BATES Jr. Rep #:[id number] : 1955 68 From: Gildardo Escoto PCP: Dr. Nadir Grady MD Status:ADM JASON Location: [place] [address] HPI - General General Date of Admission: [...] sinus rhythm. Patient had 2 troponins negative. [facility] Medical History Atherosclerotic heart disease of [place] coronary artery without angina pectoris (10/10/23) Bilateral [...] health 09/13/13 [History Last Taken 02/11/22] omega 7-oiq-now-fish oil 1,000 mg (120 mg-180 mg) capsule [...] Allergy Severe ANGIOEDEMA Verified 10/30/23 09:08 [From [facility]] losartan AdvReac Severe Angioedema Verified 10/30/23 [...] % (Auto) 65.7, Lymph % (Auto) 19.4, [place]% (Auto) 11.2 H, Eos % (Auto) 1.9, [...] brother present in ED is power of trade mark attorney for health. After discussion of benefits/risks procedures involved with full code,DNR CC arrest and DNR CC, the patient opted for DNR CC arrest with no intubation Patient doesn't want artificial life support including intubation, tube feed, ventilator and/chest compression, central venous catheter, vasopressor and DC shock if needed Total time spent in lbni-ks-gspo encounter in discussion of advanced directive 17 minutes. Laboratory Results 12/03/23 14:50: WBC 4.6, RBC 3.83 L, Hgb 11.4 L, Hct 33.3 L, MCV 86.9, MCH 29.8,MCHC 34.2, RDW Std Deviation 39.1, RDW Coeff of Megan 12.3, Plt Count 189, MPV 9.2, Immature Gran % (Auto) 0.900, Neut % (Auto) 65.7, Lymph % (Auto) 19.4, [place]% (Auto) 11.2 H, Eos % (Auto) 1.9, [...] radiographic abnormalities. Charges/Coding Visit Charges Inpatient E&M: 98536 Init Hosp L3 Procedures Hospitalists Procedures: 25603 Advncd Care Plan 30 Min 12/03/23 1851 <Electronically signed by Gildardo Walton MD> Cosigner Signature (if applicable): CC: Dr. Nadir Grady MD; Dr. Gildardo Walton MD~ Signed [facility] Work Phone: Reason for referral (narrative)* Diagnostic Procedure Only (Routine) - Authorized Specialty Diagnoses / Procedures Referred By Contac t Referred To Contact US IMAGING Diagnoses Abnormal weight loss Procedures US ABD RT UPPER QUADRANT US ABDOMINAL REAL TIME W/IMAGE LIMITED Martha Boston PA-C [address] [place] [address] Us Imaging Referral ID Status Reason Start Date Expiration Date Visits Requested Visits Authorized [id number] Authorized Auto-Generat ed Referral 2 07/25/2023 1 1 [facility] for referral (narrative)* Outpatient Procedure (Routine) - Pending Review Specialty Diagnoses / Procedures Referred By Carlos t Referred To Contact [facility] Diagnoses Anemia, unspecified type Procedures COLONOSCOPY DIAGNOSTIC COLONOSCOPY FLX DX W/COLLJ SPEC WHEN Brian Borges MD [address] [place] [address] [address] Referral ID Status Reason Start Date Expiration Date Visits Requested Visits Authorized [id number] Pending Review Auto-Generat ed Referral 2 06/27/2023 1 1 * Outpatient Procedure (Routine) - Pending Review Specialty Diagnoses / Procedures Referred By Carlos neff Referred To Contact [facility] [place] Diagnoses Anemia, unspecified type Procedures EGD DIAGNOSTIC ESOPHAGOGASTRODUODENOSC OPY TRANSORAL DIAGNOSTIC Brian Santiago MD [address] [place] [address] [address] Referral ID Status Reason Start Date Expiration Date Visits Requested Visits Authorized [id number] Pending Review Auto-Generat ed Referral 2 06/27/2023 1 1 [facility] for referral (narrative)* Diagnostic Procedure Only (Urgent) - Closed Specialty Diagnoses / Procedures Referred By Carlos neff Referred To Contact XR IMAGING Diagnoses Foot injury, left, initial encounter Procedures XR FOOT GENERAL 3V AP/LAT/OBL LEFT RADEX FOOT COMPLETE MINIMUM 3 VIEWS Miladys Butt, CUSTOMER RELATIONS ASSISTANT [address] [place] [address] Xr Imaging Referral ID Status Reason Start Date Expiration Date V isits Requested Visits Authorized [id number] Closed Auto-Generate d Referral 09/23/2022 10/23/2023 1 1 [facility] for referral (narrative)* Outpatient Procedure (Routine) - Closed Specialty Diagnoses / Procedures Referred By Carlos neff Referred To Contact Diagnoses Anemia, unspecified type Procedures COLONOSCOPY DIAGNOSTIC COLONOSCOPY FLX DX W/COLLJ SPEC WHEN PFBrian Avalos MD [address] [place] [address] Nell Gillis MD [address] [place] [address] Referral ID Status Reason Start Date Expiration Date V isits Requested Visits Authorized [id number] Closed Auto-Generate d Referral 10/14/2022 01/12/2023 1 1 * Outpatient Procedure (Routine) - Closed Specialty Diagnoses / Procedures Referred By Carlos neff Referred To Contact Diagnoses Anemia, unspecified type Procedures EGD DIAGNOSTIC ESOPHAGOGASTRODUODENOSCOPY TRANSORAL DIAGNOSTIC Brian Santiago MD [address] [place] [address] Nell Gillis MD [address] [place] [address] Referral ID Status Reason Start Date Expiration Date V isits Requested Visits Authorized [id number] Closed Auto-Generate d Referral 10/14/2022 01/12/2023 1 1 [facility] for referral (narrative)* Diagnostic Procedure Only (Routine) - Closed Specialty Diagnoses / Procedures Referred By Carlos neff Referred To Contact CT IMAGING Diagnoses Abnormal weight loss Procedures CT ABD/PEL W IVCON CT ABD & PELVIS W/CONTRAST Martha Boston PA-C [address] [place] [address] [place] [address] Referral ID Status Reason Start Date Expiration Date V isits Requested Visits Authorized [id number] Closed Auto-Generate d Referral 07/09/2022 08/08/2022 2 2 * MRI/CT (Routine) - Closed Specialty Diagnoses / Procedures Referred By Contac t Referred To Contact CT IMAGING Diagnoses Abnormal weight loss Procedures CT CHEST W IVCON DIAGNOSTIC COMPUTED TOMOGRAPHY THORAX W/CONTRAST Martha Boston PA-C [address] [place] [address] [place] [address] Referral ID Status Reason Start Date Expiration Date V isits Requested Visits Authorized [id number] Closed Auto-Generate d Referral 07/09/2022 08/08/2022 1 1 [facility] for referral (narrative)* Diagnostic Procedure Only (Routine) - Closed Specialty Diagnoses / Procedures Referred By Contac t Referred To Contact US IMAGING Diagnoses Abnormal weight loss Procedures US ABD RT UPPER QUADRANT US ABDOMINAL REAL TIME W/IMAGE LIMITED Martha Boston PA-C [address] [place] [address] [place] [address] Referral ID Status Reason Start Date Expiration Date V isits Requested Visits Authorized [id number] Closed Auto-Generate d Referral 06/25/2022 07/25/2023 1 1 [facility] for referral (narrative)* Diagnostic Procedure Only (Urgent) - Closed Specialty Diagnoses / Procedures Referred By Contac t Referred To Contact XR IMAGING Diagnoses Hand pain, left Procedures XR HAND GENERAL 3V PA/LAT/OBL LEFT RADEX HAND MINIMUM 3 VIEWS Karin Hamm TRANSMISSION AND COORDINATION ENGINEER.CUSTOMER RELATIONS ASSISTANT [address] [place] [address] [place] [address] Referral ID Status Reason Start Date Expiration Date V isits Requested Visits Authorized [id number] Closed Auto-Generate d Referral 12/22/2023 01/20/2025 1 1 Electronically signed by Karin Hamm TRANSMISSION AND COORDINATION ENGINEER.CUSTOMER RELATIONS ASSISTANT at 12/22/2023 9:19 AM EDT * Diagnostic Procedure Only (Urgent) - Closed Specialty Diagnoses / Procedures Referred By Contac t Referred To Contact XR IMAGING Diagnoses Left forearm pain Procedures XR FOREARM GENERAL 2V AP/LAT LEFT RADEX FOREARM 2 VIEWS Karin Hamm APRN.CUSTOMER RELATIONS ASSISTANT [address] [place] [address] [place] [address] Referral ID Status Reason Start Date Expiration Date V isits Requested Visits Authorized [id number] Closed Auto-Generate d Referral 12/22/2023 01/20/2025 1 1 [facility] for referral (narrative)* Diagnostic Procedure Only (Urgent) - Closed Specialty Diagnoses / Procedures Referred By Contac t Referred To Contact XR IMAGING Diagnoses Hand pain, left Procedures XR HAND GENERAL 3V PA/LAT/OBL LEFT RADEX HAND MINIMUM 3 VIEWS Karin Hamm APRN.CUSTOMER RELATIONS ASSISTANT [address] [place] [address] [place] [address] Referral ID Status Reason Start Date Expiration Date V isits Requested Visits Authorized [id number] Closed Auto-Generate d Referral 12/22/2023 01/20/2025 1 1 * Diagnostic Procedure Only (Urgent) - Closed Specialty Diagnoses / Procedures Referred By Contac t Referred To Contact XR IMAGING Diagnoses Left forearm pain Procedures XR FOREARM GENERAL 2V AP/LAT LEFT RADEX FOREARM 2 VIEWS Karin Hamm APRN.CUSTOMER RELATIONS ASSISTANT [address] [place] [address] [place] [address] Referral ID Status Reason Start Date Expiration Date V isits Requested Visits Authorized [id number] Closed Auto-Generate d Referral 12/22/2023 01/20/2025 1 1 [facility] for referral (narrative)* Diagnostic Procedure Only (Urgent) - Closed Specialty Diagnoses / Procedures Referred By Contac t Referred To Contact XR IMAGING Diagnoses Foot injury, left, initial encounter Procedures XR FOOT GENERAL 3V AP/LAT/OBL LEFT RADEX FOOT COMPLETE MINIMUM 3 VIEWS Miladys Butt APRN.CUSTOMER RELATIONS ASSISTANT [address] [place] [address] [place] [address] Referral ID Status Reason Start Date Expiration Date V isits Requested Visits Authorized [id number] Closed Auto-Generate d Referral 09/23/2022 10/23/2023 1 1 [facility] Diagnostic Procedure Only (Urgent) - Closed Specialty Diagnoses / Procedures Referred By Contac t Referred To Contact XR IMAGING Diagnoses Wrist pain, right Procedures XR WRIST GENERAL 3V PA/LAT/OBL RIGHT RADEX WRIST COMPLETE MINIMUM 3 VIEWS Bridget Joseph APRN.CUSTOMER RELATIONS ASSISTANT [address] [place] [address] [place] [address] Referral ID Status Reason Start Date Expiration Date V isits Requested Visits Authorized [id number] Closed Auto-Generate d Referral 07/24/2024 08/23/2025 1 1 [facility] for referral (narrative)* Diagnostic Procedure Only (Urgent) - Closed Specialty Diagnoses / Procedures Referred By Contac t Referred To Contact XR IMAGING Diagnoses Wrist pain, right Procedures XR WRIST GENERAL 3V PA/LAT/OBL RIGHT RADEX WRIST COMPLETE MINIMUM 3 VIEWS Bridget Joseph APRN.CUSTOMER RELATIONS ASSISTANT [address] [place] [address] [place] [address] Referral ID Status Reason Start Date Expiration Date V isits Requested Visits Authorized [id number] Closed Auto-Generate d Referral 07/24/2024 08/23/2025 1 1 [facility]No reason for referral information availableWKindred Healthcare Work Phone: [facility] for visit Narrative* Outpatient Procedure (Routine) - Closed Specialty Diagnoses / Procedures Referred By Contac t Referred To Contact Diagnoses Anemia, unspecified type Procedures COLONOSCOPY DIAGNOSTIC COLONOSCOPY FLX DX W/COLLJ SPEC WHEN Brian Borges MD [address] [place] [address] Nell Gillis MD [address] [place] [address] Referral ID Status Reason Start Date Expiration Date V isits Requested Visits Authorized [id number] Closed Auto-Generate d Referral 10/14/2022 01/12/2023 1 1 [facility] for visit Narrative* Diagnostic Procedure Only (Routine) - Closed Specialty Diagnoses / Procedures Referred By Contac t Referred To Contact CT IMAGING Diagnoses Abnormal weight loss Procedures CT ABD/PEL W IVCON CT ABD & PELVIS W/CONTRAST Martha Boston PA-C [address] [place] [address] [place] [address] Referral ID Status Reason Start Date Expiration Date V isits Requested Visits Authorized [id number] Closed Auto-Generate d Referral 07/09/2022 08/08/2022 2 2 [facility] for visit Narrative* Diagnostic Procedure Only (Urgent) - Closed Specialty Diagnoses / Procedures Referred By Contac t Referred To Contact XR IMAGING Diagnoses Hand pain, left Procedures XR HAND GENERAL 3V PA/LAT/OBL LEFT RADEX HAND MINIMUM 3 VIEWS Karin Hamm, TRANSMISSION AND COORDINATION ENGINEER.CUSTOMER RELATIONS ASSISTANT [address] [place] [address] [place] [address] Referral ID Status Reason Start Date Expiration Date V isits Requested Visits Authorized [id number] Closed Auto-Generate d Referral 12/22/2023 01/20/2025 1 1 [facility] for visit Narrative* Diagnostic Procedure Only (Urgent) - Closed Specialty Diagnoses / Procedures Referred By Contac t Referred To Contact XR IMAGING Diagnoses Foot injury, left, initial encounter Procedures XR FOOT GENERAL 3V AP/LAT/OBL LEFT RADEX FOOT COMPLETE MINIMUM 3 VIEWS Miladys Butt, TRANSMISSION AND COORDINATION ENGINEER.CUSTOMER RELATIONS ASSISTANT [address] [place] [address] [place] [address] Referral ID Status Reason Start Date Expiration Date V isits Requested Visits Authorized [id number] Closed Auto-Generate d Referral 09/23/2022 10/23/2023 1 1 [facility]* Diagnostic Procedure Only (Urgent) - Closed Specialty Diagnoses / Procedures Referred By Contac t Referred To Contact XR IMAGING Diagnoses Wrist pain, right Procedures XR WRIST GENERAL 3V PA/LAT/OBL RIGHT RADEX WRIST COMPLETE MINIMUM 3 VIEWS Bridget Joseph, TRANSMISSION AND COORDINATION ENGINEER.CUSTOMER RELATIONS ASSISTANT [address] [place] [address] [place] [address] Referral ID Status Reason Start Date Expiration Date V isits Requested Visits Authorized [id number] Closed Auto-Generate d Referral 07/24/2024 08/23/2025 1 1 [facility] Summary Purpose Family History No Family History Records Found Relationship Condition Age at Onset Recorded Date/T maryam sister Coronary artery disease Unknown Cerebrovascular accident (CVA) Unknown Diabetes mellitus Unknown Myocardial infarction Unknown History of coronary artery bypass surgery Unknown mother Malignant neoplasm Unknown Advance Directives No Advanced Directives Records FoundDocuments on File Type Date Recorded Patient Medical Billing Associate Expl anation Advance Directive(s) Advance Directive(s) 02/20/2018 5:13 PM Advance Directive(s) 02/16/2018 12:54 PM Advance Directive(s) 11/07/2017 1:34 PM Advance Directive(s) 11/07/2017 4:10 PM Advance Directive(s) 11/07/2017 4:03 PM Advance Directive(s) 09/10/2017 6:38 AM Advance Directive(s) 11/20/2015 9:33 AM Advance Directive Response Recorded Date/ Time Advance Directives No December 13 6:59am Living Will No December 13, 2021 6:59am Power of Technical Account Executive No December 13 6:59am Advance Directive Response Recorded Date/ Time Advance Directives No December 13 6:59am Living Will No December 29, 2021 6:03pm Power of Technical Account Executive No December 29 6:03pm Advance Directive Response Recorded Date/ Time Advance Directives No February 08 8:08am Living Will No February 08, 2022 8:08am Power of Technical Account Executive No February 08 8:08am Advance Directive Response Recorded Date/ Time Advance Directives No February 11 8:44am Living Will No February 11, 2022 8:44am Power of Technical Account Executive No February 11 8:44am Documents on File Type Date Recorded Patient Medical Billing Associate Expl anation Advance Directive(s) Advance Directive(s) 02/20/2018 5:13 PM Advance Directive(s) 02/16/2018 12:54 PM Advance Directive(s) 11/07/2017 1:34 PM Advance Directive(s) 11/07/2017 4:10 PM Advance Directive(s) 11/07/2017 4:03 PM Advance Directive(s) 09/10/2017 6:38 AM Advance Directive(s) 11/20/2015 9:33 AM Advance Directive Response Recorded Date/ Time Advance Directives No February 11 8:44am Living Will No March 22, 2022 2:01pm Power of Technical Account Executive No March 22 2:01pm Documents on File Type Date Recorded Patient Medical Billing Associate Expl anation Advance Directive(s) 11/07/2017 4:03 PM Advance Directive Response Recorded Date/ Time Advance Directives No February 11 8:44am Living Will No May 28, 2022 4:31pm Power of Technical Account Executive No May 4:31pm Documents on File Type Date Recorded Patient Medical Billing Associate Expl anation Advance Directive(s) 11/07/2017 4:03 PM Advance Directive Response Recorded Date/ Time Advance Directives No February 11 8:44am Living Will No January 20, 2023 4 :39pm Power of Technical Account Executive No January 20, 2023 4:39pm Advance Directive Response Recorded Date/ Time Advance Directives No February 11 7:44am Living Will No October 09 7:02pm Power of Technical Account Executive No October 09, 2023 7:02pm Advance Directive Response Recorded Date/ Time Name of Medical Power of Technical Account Executive priscilla brock October 09, 2023 11:21pm Advance Directives No February 11 7:44am Living Will Yes October 09 11:21pm Power of Technical Account Executive Yes October 09, 2023 11:21pm Advance Directive Response Recorded Date/ Time Advance Directives No February 11 7:44am Living Will No October 15 8:36am Power of Technical Account Executive No October 15, 2023 8:36am Name of Medical Power of Technical Account Executive priscilla brock October 09, 2023 11:21pm Advance Directive Response Recorded Date/ Time Name of Medical Power of Technical Account Executive priscilla brock October 09, 2023 11:21pm Advance Directives No February 11 7:44am Living Will No October 23 9:23am Power of Technical Account Executive No October 23, 2023 9:23am Advance Directive Response Recorded Date/ Time Name of Medical Power of Technical Account Executive priscilla brock October 10, 2023 12:21am Advance Directives No November 23 7:06am Living Will No November 24, 2023 7:06am Power of Technical Account Executive No November 23 7:06am Advance Directives on File No November 19, 2023 1:14pm Advance Directive Response Recorded Date/ Time Name of Medical Power of Technical Account Executive priscilla brock October 10, 2023 12:21am Advance Directives on File No November 19, 2023 1:14pm Advance Directives No November 23 7:06am Living Will No December 03, 2023 7:36pm Power of Technical Account Executive No December 02 7:36pm Advance Directive Response Recorded Date/ Time Living Will No December 03, 2023 7:36pm Power of Technical Account Executive No December 02 7:36pm Living Will No August 16 8:04am Power of Technical Account Executive No August 16, 2024 8:04am Advance Directives No August 8:04am Living Will No August 27 10:44am Power of Technical Account Executive No August 27, 2024 10:44am Advance Directive Response Recorded Date/ Time Living Will No August 16 8:04am Do you have a Healthcare Power of Technical Account Executive? No August 16, 2024 8:04am Advance Directives No August 8:04am Living Will No August 27, 2 024 10:44am Do you have a Healthcare Power of Technical Account Executive? No August 27, 2024 10:44am Advance Directive Response Recorded Date/ Time Advance Directives No August 8:04am Advance Directive Response Recorded Date/ Time Living Will No December 03, 2023 7:36pm Do you have a Healthcare Power of Technical Account Executive? No December 03, 2023 7:36pm Advance Directives No August 8:04am Advance Directive Response Recorded Date/ Time Living Will No December 03, 2023 7:36pm Do you have a Healthcare Power of Technical Account Executive? No December 03, 2023 7:36pm Do you have a Healthcare Power of Technical Account Executive? No March 05, 2025 11:22am Advance Directives No August 8:04am Chief Complaint and Reason for Visit Chief Complaint COVID VACCINE HEAD INJURY HEAD INJURY SYNCOPE *SHAHID* HEAD PAIN FU FROM [facility] ER. SYNCOPE/COLLAPSE Reason for Visit Bilateral carotid ar mike stenosis Syncope Essential (primary) hypertension Hyperlipidemia Chief Complaint HEAD INJURY HEAD INJURY SYNCOPE *SHAHID* HEAD PAIN FU FROM [facility] ER. SYNCOPE/COLLAPSE E ORDERS hypotension Reason for Visit Bilateral carotid ar mike stenosis Syncope Essential (primary) hypertension Hyperlipidemia Chief Complaint HEAD INJURY HEAD INJURY SYNCOPE *SHAHID* HEAD PAIN FU FROM [facility] ER. SYNCOPE/COLLAPSE E ORDERS hypotension PER KEENAN ANGIOEDEMA Reason for Visit Bilateral carotid ar mike stenosis Syncope Essential (primary) hypertension Hyperlipidemia History of loop recorder Syncope Chief Complaint HEAD INJURY HEAD INJURY SYNCOPE *SHAHID* HEAD PAIN FU FROM [facility] ER. SYNCOPE/COLLAPSE E ORDERS hypotension PER KEENAN ANGIOEDEMA remote ILR f/u 2 m fu Remote ILR ALERT CHEST PAIN, CAD HX CHEST PAIN, CAD HX Reason for Visit Bilateral carotid ar mike stenosis Syncope Essential (primary) hypertension Hyperlipidemia History of loop recorder Syncope History of loop recorder Syncope Atherosclerotic heart disease of [place] coronary artery without angina pectoris Bilateral carotid artery stenosis History of loop recorder Hypotension Syncope Atherosclerotic heart disease of [place] coronary artery without angina pectoris Essential (primary) hypertension History of coronary artery stent placement Hyperlipidemia History of loop recorder Syncope Chief Complaint HEAD INJURY HEAD INJURY SYNCOPE *SHAHID* HEAD PAIN FU FROM [facility] ER. SYNCOPE/COLLAPSE E ORDERS hypotension PER KEENAN ANGIOEDEMA remote ILR f/u 2 m fu Remote ILR ALERT CHEST PAIN, CAD HX CHEST PAIN, CAD HX CAD ,CP, HX OF STENTS CAD ,CP, HX OF STENTS Reason for Visit Bilateral carotid ar mike stenosis Syncope Essential (primary) hypertension Hyperlipidemia History of loop recorder Syncope History of loop recorder Syncope Atherosclerotic heart disease of [place] coronary artery without angina pectoris Bilateral carotid artery stenosis History of loop recorder Hypotension Syncope Atherosclerotic heart disease of [place] coronary artery without angina pectoris Essential (primary) hypertension History of coronary artery stent placement Hyperlipidemia History of loop recorder Syncope Bilateral carotid artery stenosis Chest pain Atherosclerotic heart disease of [place] coronary artery without angina pectoris Essential (primary) [...] loop recorder Syncope Atherosclerotic heart disease of [place] coronary artery without angina pectoris Bilateral carotid artery stenosis History of loop recorder Hypotension Syncope Atherosclerotic heart disease of [place] coronary artery without angina pectoris Essential (primary) hypertension History of coronary artery stent placement Hyperlipidemia History of loop recorder Syncope Bilateral carotid artery stenosis Chest pain Atherosclerotic heart disease of [place] coronary artery without angina pectoris Essential (primary) [...] for Visit Atherosclerotic hear t disease of [place] coronary artery without angina pectoris History of loop recorder Syncope Atherosclerotic heart disease of [place] coronary artery without angina pectoris Bilateral carotid artery stenosis Essential (primary) hypertension History of coronary artery stent placement History of loop recorder Hyperlipidemia Hypotension Syncope History of loop recorder Syncope Atherosclerotic heart disease of [place] coronary artery without angina pectoris Bilateral carotid artery stenosis Essential (primary) hypertension History of coronary artery stent placement Hyperlipidemia Syncope Atherosclerotic heart disease of [place] coronary artery without angina pectoris Bilateral carotid artery stenosis History of coronary artery stent placement History of loop recorder Hyperlipidemia Hypotension Syncope Chief Complaint CAD ,CP, HX OF STENT S CAD ,CP, HX OF STENTS fall 1 wk ago, uncontrolled shaking Adrenal INT LABS 6 M FU CORTISOL STIM TEST CP Reason for Visit Atherosclerotic hear t disease of [place] coronary artery without angina pectoris Bilateral carotid artery stenosis Essential (primary) hypertension History of coronary artery stent placement Hyperlipidemia Syncope Atherosclerotic heart disease of [place] coronary artery without angina pectoris Bilateral carotid artery stenosis History of coronary artery stent placement History of loop recorder Hyperlipidemia Hypotension Syncope Chief Complaint 1 Y FU Atherosclerotic heart disease of [place] coronary a Atherosclerotic heart disease of [place] coronary a Amb Documentation Reason for Visit Atherosclerotic hear t disease of [place] coronary artery without angina pectoris Bilateral carotid [...] pain Unstable angina Atherosclerotic heart disease of [place] coronary artery without angina pectoris Bilateral carotid [...] pain Unstable angina Atherosclerotic heart disease of [place] coronary artery without angina pectoris Bilateral carotid [...] pain Unstable angina Atherosclerotic heart disease of [place] coronary artery without angina pectoris Bilateral carotid [...] pain Unstable angina Atherosclerotic heart disease of [place] coronary artery without angina pectoris Bilateral carotid [...] pain Unstable angina Atherosclerotic heart disease of [place] coronary artery without angina pectoris Bilateral carotid artery stenosis Hypotension Syncope Chest pain Chest pain, atypical Atherosclerotic heart disease of [place] coronary artery without angina pectoris Bilateral carotid artery stenosis Hypotension Syncope Chief Complaint Admit Date 3 M FU July 28, 2024 8:10am CHEST X-RAY, E-ORDER July 28, 2024 9:22am CHEST PAIN August 16, 2024 6:45am chest pain, sob, diarrhea August 27, 2024 9:39am S/P [facility] 12/16 Cath September 08, 2024 12 :50pm CERVICAL [...] sob, diarrhea August 27, 2024 9:39am S/P [facility] 08/16 Cath September 08, 2024 12 :50pm [...] 8:09 am Chief Complaint Admit Date S/P [facility] 08/16 Cath September 08, 2024 12 :50pm [...] Orthostatic hypotension Procedures CONSULT TO NEUROLOGY OFFICE/OUTPATIENT [facility] 60-74 MINUTES Jenna Jim, TRANSMISSION AND COORDINATION ENGINEER.CUSTOMER RELATIONS ASSISTANT [address] [place] [id number] Referral ID Status Reason Start Date Expiration Date Visits Requested Visits Authorized [id number] Pending Review PCP Requested Referral 02/22/2022 02/22/2023 1 1 Specialty Diagnoses / Procedures Referred By Carlos t Referred To Contact CT IMAGING Diagnoses Injury of head, initial encounter Procedures CT BRAIN WO IVCON CT HEAD/BRAIN W/O CONTRAST MATERIAL Jenna Jim, TRANSMISSION AND COORDINATION ENGINEER.CUSTOMER RELATIONS ASSISTANT [address] [place] [address] Ct Imaging Referral ID Status Reason Start Date Expiration Date V isits Requested Visits Authorized [id number] Closed Auto-Generate d Referral 03/19/2022 04/18/2023 1 1 Specialty Diagnoses / Procedures Referred By Contac t Referred To Contact General Surgery Diagnoses Anemia, unspecified type Procedures CONSULT TO GENERAL SURGERY OFFICE/OUTPATIENT [facility] MDM 60-74 MINUTES Martha Boston PA-C [address] [place] [address] Referral ID Status Reason Start Date Expiration Date Visits Requested Visits Authorized [id number] Pending Review PCP Requested Referral 06/26/2023 1 1 Specialty Diagnoses / Procedures Referred By Contac t Referred To Contact CT IMAGING Diagnoses Abnormal weight loss Procedures CT ABD/PEL W IVCON CT ABD & PELVIS W/CONTRAST Martha Boston PA-C [address] [place] [address] Ct Imaging Referral ID Status Reason Start Date Expiration Date Visits Requested Visits Authorized [id number] Pending Review Auto-Generat ed Referral 07/02/2022 08/01/2023 1 1 Specialty Diagnoses / Procedures Referred By Contac t Referred To Contact CT IMAGING Diagnoses Abnormal weight loss Procedures CT CHEST W IVCON DIAGNOSTIC COMPUTED TOMOGRAPHY THORAX W/CONTRAST Martha Boston PA-C [address] [place] [address] Ct Imaging Referral ID Status Reason Start Date Expiration Date Visits Requested Visits Authorized [id number] Pending Review Auto-Generat ed Referral 07/02/2022 08/01/2023 1 1 Specialty Diagnoses / Procedures Referred By Contac t Referred To Contact Urology Diagnoses Bladder wall thickening Abnormal weight loss Procedures CONSULT TO UROLOGY OFFICE/OUTPATIENT [facility] MDM 60-74 MINUTES Martha Boston PA-C [address] [place] [address] Referral ID Status Reason Start Date Expiration Date Visits Requested Visits Authorized [id number] Pending Review PCP Requested Referral 07/10/2022 07/10/2023 1 1 Specialty Diagnoses / Procedures Referred By Contac t Referred To Contact Neurology Diagnoses Type 2 diabetes mellitus with diabetic neuropathy, without long-term current use of insulin (HCC) Procedures CONSULT TO NEUROLOGY Franny Catalan APRN.CNP [address] [place] [address] Lemuel Troy Jr., MD [address] [place] [address] Referral ID Status Reason Start Date Expiration Date Visits Requested Visits Authorized [id number] Ref Not Required PCP Requested Referral 07/30/2023 1 1 Specialty Diagnoses / Procedures Referred By Contac t Referred To Contact Ophthalmology Diagnoses Type 2 diabetes mellitus with diabetic neuropathy, without long-term current use of insulin (HCC) Procedures CONSULT TO OPHTHALMOLOGY OFFICE/OUTPATIENT [facility] 60-74 MINUTES Martha Boston PA-C [address] [id number] Referral ID Status Reason Start Date Expiration Date Visits Requested Visits Authorized [id number] Pending Review PCP Requested Referral 11/28/2022 11/28/2023 1 1 Specialty Diagnoses / Procedures Referred By Contac t Referred To Contact Diagnoses Hypersomnolence Snores Sleep initiation dysfunction Procedures CONSULT TO SLEEP MEDICINE - ADULT OFFICE/OUTPATIENT [facility] 60 MINUTES Nadir Grady MD [facility] [place] [address] Referral ID Status Reason Start Date Expiration Date Visits Requested Visits Authorized [id number] Authorized PCP Requested Referral 09/06/2024 09/06/2025 1 1 Specialty Diagnoses / Procedures Referred By Contac t Referred To Contact Pain Management Diagnoses Bilateral occipital neuralgia Cervicogenic headache Procedures CONSULT TO PAIN MGT OFFICE/OUTPATIENT [facility] 60 MINUTES Nadir Grady MD [address] [place] [id number] Referral ID Status Reason Start Date Expiration Date Visits Requested Visits Authorized [id number] Authorized PCP Requested Referral 09/06/2024 09/06/2025 1 1 Specialty Diagnoses / Procedures Referred By Carlos neff Referred To Contact MR IMAGING Diagnoses Thunderclap headache New onset headache Procedures MRI BRAIN WO/W IVCON MRI BRAIN BRAIN STEM W/O W/CONTRAST MATERIAL Martha Boston PA-C [address] [facility] [place] [address] [place] [address] Referral ID Status Reason Start Date Expiration Date Visits Requested Visits Authorized [id number] Pending Review Auto-Genera melanie Referral Patient Cleared - Admin/Chair man/Directo r advise to proceed or did not respond 10/07/2024 11/06/2025 1 1 Referral ID Status Reason Start Date Expiration Date V isits Requested Visits Authorized [id number] Closed Auto-Generat ed Referral Patient Cleared - [...] Date Dose Rate Site benzocaine 20% 4 [place] (TOPEX) 4 [place], TOPICAL, ONCE, 1 dose, On Fri10/14/22 at [...] section and content) DATE CREATED AUTHOR 02/24/2018 [facility] DATE CREATED AUTHOR AUTHOR'S ORGANIZ ATION 04/06/2022 [facility] DATE CREATED AUTHOR AUTHOR'S ORGANIZ ATION 08/25/2022 [facility] DATE CREATED AUTHOR AUTHOR'S ORGANIZ ATION 10/20/2022 [facility] DATE CREATED AUTHOR AUTHOR'S ORGANIZ ATION 03/10/2025 [facility] DATE CREATED AUTHOR AUTHOR'S ORGANIZ ATION 03/19/2025 [facility] Source Comments (unrecognize d section and content) In the event this informatio n is protected by the Federal Confidentiality of Alcohol and Drug Abuse Patient Records regulations: The Federal rules restrict any use of the information to criminally investigate or prosecute any alcohol or drug abuse patient.[facility] the event this information is protected by the Federal Confidentiality of Alcohol and Drug Abuse Patient Records regulations: The Federal rules restrict any use of the information to criminally investigate or prosecute any alcohol or drug abuse patient.[facility] HospitalIn the event this information is protected by the Federal Confidentiality of Alcohol and Drug Abuse Patient Records regulations: The Federal rules restrict any use of the information to criminally investigate or prosecute any alcohol or drug abuse patient.[facility] HospitalIn the event this information is protected by the Federal Confidentiality of Alcohol and Drug Abuse Patient Records regulations: The Federal rules restrict any use of the information to criminally investigate or prosecute any alcohol or drug abuse patient.[facility] HospitalIn the event this information is protected by the Federal Confidentiality of Alcohol and Drug Abuse Patient Records regulations: The Federal rules restrict any use of the information to criminally investigate or prosecute any alcohol or drug abuse patient.[facility] HospitalIn the event this information is protected by the Federal Confidentiality of Alcohol and Drug Abuse Patient Records regulations: The Federal rules restrict any use of the information to criminally investigate or prosecute any alcohol or drug abuse patient.[facility] HospitalIn the event this information is protected by the Federal Confidentiality of Alcohol and Drug Abuse Patient Records regulations: The Federal rules restrict any use of the information to criminally investigate or prosecute any alcohol or drug abuse patient.[facility] HospitalIn the event this information is protected by the Federal Confidentiality of Alcohol and Drug Abuse Patient Records regulations: The Federal rules restrict any use of the information to criminally investigate or prosecute any alcohol or drug abuse patient.[facility] HospitalIn the event this information is protected by the Federal Confidentiality of Alcohol and Drug Abuse Patient Records regulations: The Federal rules restrict any use of the information to criminally investigate or prosecute any alcohol or drug abuse patient.[facility] HospitalIn the event this information is protected by the Federal Confidentiality of Alcohol and Drug Abuse Patient Records regulations: The Federal rules restrict any use of the information to criminally investigate or prosecute any alcohol or drug abuse patient.[facility] HospitalIn the event this information is protected by the Federal Confidentiality of Alcohol and Drug Abuse Patient Records regulations: The Federal rules restrict any use of the information to criminally investigate or prosecute any alcohol or drug abuse patient.[facility] HospitalIn the event this information is protected by the Federal Confidentiality of Alcohol and Drug Abuse Patient Records regulations: The Federal rules restrict any use of the information to criminally investigate or prosecute any alcohol or drug abuse patient.[facility] HospitalIn the event this information is protected by the Federal Confidentiality of Alcohol and Drug Abuse Patient Records regulations: The Federal rules restrict any use of the information to criminally investigate or prosecute any alcohol or drug abuse patient.[facility] HospitalIn the event this information is protected by the Federal Confidentiality of Alcohol and Drug Abuse Patient Records regulations: The Federal rules restrict any use of the information to criminally investigate or prosecute any alcohol or drug abuse patient.[facility] HospitalIn the event this information is protected by the Federal Confidentiality of Alcohol and Drug Abuse Patient Records regulations: The Federal rules restrict any use of the information to criminally investigate or prosecute any alcohol or drug abuse patient.[facility] HospitalIn the event this information is protected by the Federal Confidentiality of Alcohol and Drug Abuse Patient Records regulations: The Federal rules restrict any use of the information to criminally investigate or prosecute any alcohol or drug abuse patient.[facility] HospitalIn the event this information is protected by the Federal Confidentiality of Alcohol and Drug Abuse Patient Records regulations: The Federal rules restrict any use of the information to criminally investigate or prosecute any alcohol or drug abuse patient.[facility] HospitalIn the event this information is protected by the Federal Confidentiality of Alcohol and Drug Abuse Patient Records regulations: The Federal rules restrict any use of the information to criminally investigate or prosecute any alcohol or drug abuse patient.[facility] HospitalIn the event this information is protected by the Federal Confidentiality of Alcohol and Drug Abuse Patient Records regulations: The Federal rules restrict any use of the information to criminally investigate or prosecute any alcohol or drug abuse patient.[facility] HospitalIn the event this information is protected by the Federal Confidentiality of Alcohol and Drug Abuse Patient Records regulations: The Federal rules restrict any use of the information to criminally investigate or prosecute any alcohol or drug abuse patient.[facility] HospitalIn the event this information is protected by the Federal Confidentiality of Alcohol and Drug Abuse Patient Records regulations: The Federal rules restrict any use of the information to criminally investigate or prosecute any alcohol or drug abuse patient.[facility] HospitalIn the event this information is protected by the Federal Confidentiality of Alcohol and Drug Abuse Patient Records regulations: The Federal rules restrict any use of the information to criminally investigate or prosecute any alcohol or drug abuse patient.[facility] HospitalIn the event this information is protected by the Federal Confidentiality of Alcohol and Drug Abuse Patient Records regulations: The Federal rules restrict any use of the information to criminally investigate or prosecute any alcohol or drug abuse patient.[facility] HospitalIn the event this information is protected by the Federal Confidentiality of Alcohol and Drug Abuse Patient Records regulations: The Federal rules restrict any use of the information to criminally investigate or prosecute any alcohol or drug abuse patient.[facility] HospitalIn the event this information is protected by the Federal Confidentiality of Alcohol and Drug Abuse Patient Records regulations: The Federal rules restrict any use of the information to criminally investigate or prosecute any alcohol or drug abuse patient.[facility] HospitalIn the event this information is protected by the Federal Confidentiality of Alcohol and Drug Abuse Patient Records regulations: The Federal rules restrict any use of the information to criminally investigate or prosecute any alcohol or drug abuse patient.[facility] HospitalIn the event this information is protected by the Federal Confidentiality of Alcohol and Drug Abuse Patient Records regulations: The Federal rules restrict any use of the information to criminally investigate or prosecute any alcohol or drug abuse patient.[facility] HospitalIn the event this information is protected by the Federal Confidentiality of Alcohol and Drug Abuse Patient Records regulations: The Federal rules restrict any use of the information to criminally investigate or prosecute any alcohol or drug abuse patient.[facility] HospitalIn the event this information is protected by the Federal Confidentiality of Alcohol and Drug Abuse Patient Records regulations: The Federal rules restrict any use of the information to criminally investigate or prosecute any alcohol or drug abuse patient.[facility] HospitalIn the event this information is protected by the Federal Confidentiality of Alcohol and Drug Abuse Patient Records regulations: The Federal rules restrict any use of the information to criminally investigate or prosecute any alcohol or drug abuse patient.[facility] HospitalIn the event this information is protected by the Federal Confidentiality of Alcohol and Drug Abuse Patient Records regulations: The Federal rules restrict any use of the information to criminally investigate or prosecute any alcohol or drug abuse patient.[facility] HospitalIn the event this information is protected by the Federal Confidentiality of Alcohol and Drug Abuse Patient Records regulations: The Federal rules restrict any use of the information to criminally investigate or prosecute any alcohol or drug abuse patient.[facility] HospitalIn the event this information is protected by the Federal Confidentiality of Alcohol and Drug Abuse Patient Records regulations: The Federal rules restrict any use of the information to criminally investigate or prosecute any alcohol or drug abuse patient.[facility] HospitalIn the event this information is protected by the Federal Confidentiality of Alcohol and Drug Abuse Patient Records regulations: The Federal rules restrict any use of the information to criminally investigate or prosecute any alcohol or drug abuse patient.[facility] HospitalIn the event this information is protected by the Federal Confidentiality of Alcohol and Drug Abuse Patient Records regulations: The Federal rules restrict any use of the information to criminally investigate or prosecute any alcohol or drug abuse patient.[facility] HospitalIn the event this information is protected by the Federal Confidentiality of Alcohol and Drug Abuse Patient Records regulations: The Federal rules restrict any use of the information to criminally investigate or prosecute any alcohol or drug abuse patient.[facility] HospitalIn the event this information is protected by the Federal Confidentiality of Alcohol and Drug Abuse Patient Records regulations: The Federal rules restrict any use of the information to criminally investigate or prosecute any alcohol or drug abuse patient.[facility] HospitalIn the event this information is protected by the Federal Confidentiality of Alcohol and Drug Abuse Patient Records regulations: The Federal rules restrict any use of the information to criminally investigate or prosecute any alcohol or drug abuse patient.[facility] HospitalIn the event this information is protected by the Federal Confidentiality of Alcohol and Drug Abuse Patient Records regulations: The Federal rules restrict any use of the information to criminally investigate or prosecute any alcohol or drug abuse patient.[facility] HospitalIn the event this information is protected by the Federal Confidentiality of Alcohol and Drug Abuse Patient Records regulations: The Federal rules restrict any use of the information to criminally investigate or prosecute any alcohol or drug abuse patient.[facility] HospitalIn the event this information is protected by the Federal Confidentiality of Alcohol and Drug Abuse Patient Records regulations: The Federal rules restrict any use of the information to criminally investigate or prosecute any alcohol or drug abuse patient.[facility] HospitalIn the event this information is protected by the Federal Confidentiality of Alcohol and Drug Abuse Patient Records regulations: The Federal rules restrict any use of the information to criminally investigate or prosecute any alcohol or drug abuse patient.[facility] HospitalIn the event this information is protected by the Federal Confidentiality of Alcohol and Drug Abuse Patient Records regulations: The Federal rules restrict any use of the information to criminally investigate or prosecute any alcohol or drug abuse patient.[facility] HospitalIn the event this information is protected by the Federal Confidentiality of Alcohol and Drug Abuse Patient Records regulations: The Federal rules restrict any use of the information to criminally investigate or prosecute any alcohol or drug abuse patient.[facility] HospitalIn the event this information is protected by the Federal Confidentiality of Alcohol and Drug Abuse Patient Records regulations: The Federal rules restrict any use of the information to criminally investigate or prosecute any alcohol or drug abuse patient.[facility] HospitalIn the event this information is protected by the Federal Confidentiality of Alcohol and Drug Abuse Patient Records regulations: The Federal rules restrict any use of the information to criminally investigate or prosecute any alcohol or drug abuse patient.[facility] HospitalIn the event this information is protected by the Federal Confidentiality of Alcohol and Drug Abuse Patient Records regulations: The Federal rules restrict any use of the information to criminally investigate or prosecute any alcohol or drug abuse patient.[facility] HospitalIn the event this information is protected by the Federal Confidentiality of Alcohol and Drug Abuse Patient Records regulations: The Federal rules restrict any use of the information to criminally investigate or prosecute any alcohol or drug abuse patient.[facility] HospitalIn the event this information is protected by the Federal Confidentiality of Alcohol and Drug Abuse Patient Records regulations: The Federal rules restrict any use of the information to criminally investigate or prosecute any alcohol or drug abuse patient.[facility] HospitalIn the event this information is protected by the Federal Confidentiality of Alcohol and Drug Abuse Patient Records regulations: The Federal rules restrict any use of the information to criminally investigate or prosecute any alcohol or drug abuse patient.[facility] HospitalIn the event this information is protected by the Federal Confidentiality of Alcohol and Drug Abuse Patient Records regulations: The Federal rules restrict any use of the information to criminally investigate or prosecute any alcohol or drug abuse patient.[facility] HospitalIn the event this information is protected by the Federal Confidentiality of Alcohol and Drug Abuse Patient Records regulations: The Federal rules restrict any use of the information to criminally investigate or prosecute any alcohol or drug abuse patient.[facility] HospitalIn the event this information is protected by the Federal Confidentiality of Alcohol and Drug Abuse Patient Records regulations: The Federal rules restrict any use of the information to criminally investigate or prosecute any alcohol or drug abuse patient.[facility] HospitalIn the event this information is protected by the Federal Confidentiality of Alcohol and Drug Abuse Patient Records regulations: The Federal rules restrict any use of the information to criminally investigate or prosecute any alcohol or drug abuse patient.[facility] HospitalIn the event this information is protected by the Federal Confidentiality of Alcohol and Drug Abuse Patient Records regulations: The Federal rules restrict any use of the information to criminally investigate or prosecute any alcohol or drug abuse patient.[facility] HospitalIn the event this information is protected by the Federal Confidentiality of Alcohol and Drug Abuse Patient Records regulations: The Federal rules restrict any use of the information to criminally investigate or prosecute any alcohol or drug abuse patient.[facility] HospitalIn the event this information is protected by the Federal Confidentiality of Alcohol and Drug Abuse Patient Records regulations: The Federal rules restrict any use of the information to criminally investigate or prosecute any alcohol or drug abuse patient.[facility] HospitalIn the event this information is protected by the Federal Confidentiality of Alcohol and Drug Abuse Patient Records regulations: The Federal rules restrict any use of the information to criminally investigate or prosecute any alcohol or drug abuse patient.[facility] HospitalIn the event this information is protected by the Federal Confidentiality of Alcohol and Drug Abuse Patient Records regulations: The Federal rules restrict any use of the information to criminally investigate or prosecute any alcohol or drug abuse patient.[facility] HospitalIn the event this information is protected by the Federal Confidentiality of Alcohol and Drug Abuse Patient Records regulations: The Federal rules restrict any use of the information to criminally investigate or prosecute any alcohol or drug abuse patient.[facility] HospitalIn the event this information is protected by the Federal Confidentiality of Alcohol and Drug Abuse Patient Records regulations: The Federal rules restrict any use of the information to criminally investigate or prosecute any alcohol or drug abuse patient.[facility] HospitalIn the event this information is protected by the Federal Confidentiality of Alcohol and Drug Abuse Patient Records regulations: The Federal rules restrict any use of the information to criminally investigate or prosecute any alcohol or drug abuse patient.[facility] HospitalIn the event this information is protected by the Federal Confidentiality of Alcohol and Drug Abuse Patient Records regulations: The Federal rules restrict any use of the information to criminally investigate or prosecute any alcohol or drug abuse patient.[facility] HospitalIn the event this information is protected by the Federal Confidentiality of Alcohol and Drug Abuse Patient Records regulations: The Federal rules restrict any use of the information to criminally investigate or prosecute any alcohol or drug abuse patient.[facility] HospitalIn the event this information is protected by the Federal Confidentiality of Alcohol and Drug Abuse Patient Records regulations: The Federal rules restrict any use of the information to criminally investigate or prosecute any alcohol or drug abuse patient.[facility] HospitalIn the event this information is protected by the Federal Confidentiality of Alcohol and Drug Abuse Patient Records regulations: The Federal rules restrict any use of the information to criminally investigate or prosecute any alcohol or drug abuse patient.[facility] HospitalIn the event this information is protected by the Federal Confidentiality of Alcohol and Drug Abuse Patient Records regulations: The Federal rules restrict any use of the information to criminally investigate or prosecute any alcohol or drug abuse patient.[facility] HospitalIn the event this information is protected by the Federal Confidentiality of Alcohol and Drug Abuse Patient Records regulations: The Federal rules restrict any use of the information to criminally investigate or prosecute any alcohol or drug abuse patient.[facility] HospitalIn the event this information is protected by the Federal Confidentiality of Alcohol and Drug Abuse Patient Records regulations: The Federal rules restrict any use of the information to criminally investigate or prosecute any alcohol or drug abuse patient.[facility] HospitalIn the event this information is protected by the Federal Confidentiality of Alcohol and Drug Abuse Patient Records regulations: The Federal rules restrict any use of the information to criminally investigate or prosecute any alcohol or drug abuse patient.[facility] HospitalIn the event this information is protected by the Federal Confidentiality of Alcohol and Drug Abuse Patient Records regulations: The Federal rules restrict any use of the information to criminally investigate or prosecute any alcohol or drug abuse patient.[facility] HospitalIn the event this information is protected by the Federal Confidentiality of Alcohol and Drug Abuse Patient Records regulations: The Federal rules restrict any use of the information to criminally investigate or prosecute any alcohol or drug abuse patient.[facility] HospitalIn the event this information is protected by the Federal Confidentiality of Alcohol and Drug Abuse Patient Records regulations: The Federal rules restrict any use of the information to criminally investigate or prosecute any alcohol or drug abuse patient.[facility] HospitalIn the event this information is protected by the Federal Confidentiality of Alcohol and Drug Abuse Patient Records regulations: The Federal rules restrict any use of the information to criminally investigate or prosecute any alcohol or drug abuse patient.[facility] HospitalIn the event this information is protected by the Federal Confidentiality of Alcohol and Drug Abuse Patient Records regulations: The Federal rules restrict any use of the information to criminally investigate or prosecute any alcohol or drug abuse patient.[facility] HospitalIn the event this information is protected by the Federal Confidentiality of Alcohol and Drug Abuse Patient Records regulations: The Federal rules restrict any use of the information to criminally investigate or prosecute any alcohol or drug abuse patient.[facility] HospitalIn the event this information is protected by the Federal Confidentiality of Alcohol and Drug Abuse Patient Records regulations: The Federal rules restrict any use of the information to criminally investigate or prosecute any alcohol or drug abuse patient.[facility] HospitalIn the event this information is protected by the Federal Confidentiality of Alcohol and Drug Abuse Patient Records regulations: The Federal rules restrict any use of the information to criminally investigate or prosecute any alcohol or drug abuse patient.[facility] HospitalIn the event this information is protected by the Federal Confidentiality of Alcohol and Drug Abuse Patient Records regulations: The Federal rules restrict any use of the information to criminally investigate or prosecute any alcohol or drug abuse patient.[facility] HospitalIn the event this information is protected by the Federal Confidentiality of Alcohol and Drug Abuse Patient Records regulations: The Federal rules restrict any use of the information to criminally investigate or prosecute any alcohol or drug abuse patient.[facility] HospitalIn the event this information is protected by the Federal Confidentiality of Alcohol and Drug Abuse Patient Records regulations: The Federal rules restrict any use of the information to criminally investigate or prosecute any alcohol or drug abuse patient.[facility] HospitalIn the event this information is protected by the Federal Confidentiality of Alcohol and Drug Abuse Patient Records regulations: The Federal rules restrict any use of the information to criminally investigate or prosecute any alcohol or drug abuse patient.[facility] HospitalIn the event this information is protected by the Federal Confidentiality of Alcohol and Drug Abuse Patient Records regulations: The Federal rules restrict any use of the information to criminally investigate or prosecute any alcohol or drug abuse patient.[facility] HospitalIn the event this information is protected by the Federal Confidentiality of Alcohol and Drug Abuse Patient Records regulations: The Federal rules restrict any use of the information to criminally investigate or prosecute any alcohol or drug abuse patient.[facility] HospitalIn the event this information is protected by the Federal Confidentiality of Alcohol and Drug Abuse Patient Records regulations: The Federal rules restrict any use of the information to criminally investigate or prosecute any alcohol or drug abuse patient.[facility] HospitalIn the event this information is protected by the Federal Confidentiality of Alcohol and Drug Abuse Patient Records regulations: The Federal rules restrict any use of the information to criminally investigate or prosecute any alcohol or drug abuse patient.[facility] HospitalIn the event this information is protected by the Federal Confidentiality of Alcohol and Drug Abuse Patient Records regulations: The Federal rules restrict any use of the information to criminally investigate or prosecute any alcohol or drug abuse patient.[facility] HospitalIn the event this information is protected by the Federal Confidentiality of Alcohol and Drug Abuse Patient Records regulations: The Federal rules restrict any use of the information to criminally investigate or prosecute any alcohol or drug abuse patient.[facility] HospitalIn the event this information is protected by the Federal Confidentiality of Alcohol and Drug Abuse Patient Records regulations: The Federal rules restrict any use of the information to criminally investigate or prosecute any alcohol or drug abuse patient.[facility] HospitalIn the event this information is protected by the Federal Confidentiality of Alcohol and Drug Abuse Patient Records regulations: The Federal rules restrict any use of the information to criminally investigate or prosecute any alcohol or drug abuse patient.[facility] HospitalIn the event this information is protected by the Federal Confidentiality of Alcohol and Drug Abuse Patient Records regulations: The Federal rules restrict any use of the information to criminally investigate or prosecute any alcohol or drug abuse patient.[facility] HospitalIn the event this information is protected by the Federal Confidentiality of Alcohol and Drug Abuse Patient Records regulations: The Federal rules restrict any use of the information to criminally investigate or prosecute any alcohol or drug abuse patient.[facility] HospitalIn the event this information is protected by the Federal Confidentiality of Alcohol and Drug Abuse Patient Records regulations: The Federal rules restrict any use of the information to criminally investigate or prosecute any alcohol or drug abuse patient.[facility] HospitalIn the event this information is protected by the Federal Confidentiality of Alcohol and Drug Abuse Patient Records regulations: The Federal rules restrict any use of the information to criminally investigate or prosecute any alcohol or drug abuse patient.[facility] HospitalIn the event this information is protected by the Federal Confidentiality of Alcohol and Drug Abuse Patient Records regulations: The Federal rules restrict any use of the information to criminally investigate or prosecute any alcohol or drug abuse patient.[facility] HospitalIn the event this information is protected by the Federal Confidentiality of Alcohol and Drug Abuse Patient Records regulations: The Federal rules restrict any use of the information to criminally investigate or prosecute any alcohol or drug abuse patient.[facility] HospitalIn the event this information is protected by the Federal Confidentiality of Alcohol and Drug Abuse Patient Records regulations: The Federal rules restrict any use of the information to criminally investigate or prosecute any alcohol or drug abuse patient.[facility] HospitalIn the event this information is protected by the Federal Confidentiality of Alcohol and Drug Abuse Patient Records regulations: The Federal rules restrict any use of the information to criminally investigate or prosecute any alcohol or drug abuse patient.[facility] HospitalIn the event this information is protected by the Federal Confidentiality of Alcohol and Drug Abuse Patient Records regulations: The Federal rules restrict any use of the information to criminally investigate or prosecute any alcohol or drug abuse patient.[facility] HospitalIn the event this information is protected by the Federal Confidentiality of Alcohol and Drug Abuse Patient Records regulations: The Federal rules restrict any use of the information to criminally investigate or prosecute any alcohol or drug abuse patient.[facility] HospitalIn the event this information is protected by the Federal Confidentiality of Alcohol and Drug Abuse Patient Records regulations: The Federal rules restrict any use of the information to criminally investigate or prosecute any alcohol or drug abuse patient.[facility] HospitalIn the event this information is protected by the Federal Confidentiality of Alcohol and Drug Abuse Patient Records regulations: The Federal rules restrict any use of the information to criminally investigate or prosecute any alcohol or drug abuse patient.[facility] HospitalIn the event this information is protected by the Federal Confidentiality of Alcohol and Drug Abuse Patient Records regulations: The Federal rules restrict any use of the information to criminally investigate or prosecute any alcohol or drug abuse patient.[facility] HospitalIn the event this information is protected by the Federal Confidentiality of Alcohol and Drug Abuse Patient Records regulations: The Federal rules restrict any use of the information to criminally investigate or prosecute any alcohol or drug abuse patient.[facility] HospitalIn the event this information is protected by the Federal Confidentiality of Alcohol and Drug Abuse Patient Records regulations: The Federal rules restrict any use of the information to criminally investigate or prosecute any alcohol or drug abuse patient.[facility] HospitalIn the event this information is protected by the Federal Confidentiality of Alcohol and Drug Abuse Patient Records regulations: The Federal rules restrict any use of the information to criminally investigate or prosecute any alcohol or drug abuse patient.[facility] HospitalIn the event this information is protected by the Federal Confidentiality of Alcohol and Drug Abuse Patient Records regulations: The Federal rules restrict any use of the information to criminally investigate or prosecute any alcohol or drug abuse patient.[facility] HospitalIn the event this information is protected by the Federal Confidentiality of Alcohol and Drug Abuse Patient Records regulations: The Federal rules restrict any use of the information to criminally investigate or prosecute any alcohol or drug abuse patient.[facility] HospitalIn the event this information is protected by the Federal Confidentiality of Alcohol and Drug Abuse Patient Records regulations: The Federal rules restrict any use of the information to criminally investigate or prosecute any alcohol or drug abuse patient.[facility] HospitalIn the event this information is protected by the Federal Confidentiality of Alcohol and Drug Abuse Patient Records regulations: The Federal rules restrict any use of the information to criminally investigate or prosecute any alcohol or drug abuse patient.[facility] HospitalIn the event this information is protected by the Federal Confidentiality of Alcohol and Drug Abuse Patient Records regulations: The Federal rules restrict any use of the information to criminally investigate or prosecute any alcohol or drug abuse patient.[facility] HospitalIn the event this information is protected by the Federal Confidentiality of Alcohol and Drug Abuse Patient Records regulations: The Federal rules restrict any use of the information to criminally investigate or prosecute any alcohol or drug abuse patient.[facility] HospitalIn the event this information is protected by the Federal Confidentiality of Alcohol and Drug Abuse Patient Records regulations: The Federal rules restrict any use of the information to criminally investigate or prosecute any alcohol or drug abuse patient.[facility] HospitalIn the event this information is protected by the Federal Confidentiality of Alcohol and Drug Abuse Patient Records regulations: The Federal rules restrict any use of the information to criminally investigate or prosecute any alcohol or drug abuse patient.[facility] HospitalIn the event this information is protected by the Federal Confidentiality of Alcohol and Drug Abuse Patient Records regulations: The Federal rules restrict any use of the information to criminally investigate or prosecute any alcohol or drug abuse patient.[facility] HospitalIn the event this information is protected by the Federal Confidentiality of Alcohol and Drug Abuse Patient Records regulations: The Federal rules restrict any use of the information to criminally investigate or prosecute any alcohol or drug abuse patient.[facility] HospitalIn the event this information is protected by the Federal Confidentiality of Alcohol and Drug Abuse Patient Records regulations: The Federal rules restrict any use of the information to criminally investigate or prosecute any alcohol or drug abuse patient.[facility] HospitalIn the event this information is protected by the Federal Confidentiality of Alcohol and Drug Abuse Patient Records regulations: The Federal rules restrict any use of the information to criminally investigate or prosecute any alcohol or drug abuse patient.[facility] HospitalIn the event this information is protected by the Federal Confidentiality of Alcohol and Drug Abuse Patient Records regulations: The Federal rules restrict any use of the information to criminally investigate or prosecute any alcohol or drug abuse patient.[facility] HospitalIn the event this information is protected by the Federal Confidentiality of Alcohol and Drug Abuse Patient Records regulations: The Federal rules restrict any use of the information to criminally investigate or prosecute any alcohol or drug abuse patient.[facility] HospitalIn the event this information is protected by the Federal Confidentiality of Alcohol and Drug Abuse Patient Records regulations: The Federal rules restrict any use of the information to criminally investigate or prosecute any alcohol or drug abuse patient.[facility] HospitalIn the event this information is protected by the Federal Confidentiality of Alcohol and Drug Abuse Patient Records regulations: The Federal rules restrict any use of the information to criminally investigate or prosecute any alcohol or drug abuse patient.[facility] HospitalIn the event this information is protected by the Federal Confidentiality of Alcohol and Drug Abuse Patient Records regulations: The Federal rules restrict any use of the information to criminally investigate or prosecute any alcohol or drug abuse patient.[facility] HospitalIn the event this information is protected by the Federal Confidentiality of Alcohol and Drug Abuse Patient Records regulations: The Federal rules restrict any use of the information to criminally investigate or prosecute any alcohol or drug abuse patient.[facility] HospitalIn the event this information is protected by the Federal Confidentiality of Alcohol and Drug Abuse Patient Records regulations: The Federal rules restrict any use of the information to criminally investigate or prosecute any alcohol or drug abuse patient.[facility] HospitalIn the event this information is protected by the Federal Confidentiality of Alcohol and Drug Abuse Patient Records regulations: The Federal rules restrict any use of the information to criminally investigate or prosecute any alcohol or drug abuse patient.[facility] HospitalIn the event this information is protected by the Federal Confidentiality of Alcohol and Drug Abuse Patient Records regulations: The Federal rules restrict any use of the information to criminally investigate or prosecute any alcohol or drug abuse patient.[facility] HospitalIn the event this information is protected by the Federal Confidentiality of Alcohol and Drug Abuse Patient Records regulations: The Federal rules restrict any use of the information to criminally investigate or prosecute any alcohol or drug abuse patient.[facility] HospitalIn the event this information is protected by the Federal Confidentiality of Alcohol and Drug Abuse Patient Records regulations: The Federal rules restrict any use of the information to criminally investigate or prosecute any alcohol or drug abuse patient.[facility] HospitalIn the event this information is protected by the Federal Confidentiality of Alcohol and Drug Abuse Patient Records regulations: The Federal rules restrict any use of the information to criminally investigate or prosecute any alcohol or drug abuse patient.[facility] HospitalIn the event this information is protected by the Federal Confidentiality of Alcohol and Drug Abuse Patient Records regulations: The Federal rules restrict any use of the information to criminally investigate or prosecute any alcohol or drug abuse patient.[facility] HospitalIn the event this information is protected by the Federal Confidentiality of Alcohol and Drug Abuse Patient Records regulations: The Federal rules restrict any use of the information to criminally investigate or prosecute any alcohol or drug abuse patient.[facility] HospitalIn the event this information is protected by the Federal Confidentiality of Alcohol and Drug Abuse Patient Records regulations: The Federal rules restrict any use of the information to criminally investigate or prosecute any alcohol or drug abuse patient.[facility] HospitalIn the event this information is protected by the Federal Confidentiality of Alcohol and Drug Abuse Patient Records regulations: The Federal rules restrict any use of the information to criminally investigate or prosecute any alcohol or drug abuse patient.[facility] HospitalIn the event this information is protected by the Federal Confidentiality of Alcohol and Drug Abuse Patient Records regulations: The Federal rules restrict any use of the information to criminally investigate or prosecute any alcohol or drug abuse patient.[facility] HospitalIn the event this information is protected by the Federal Confidentiality of Alcohol and Drug Abuse Patient Records regulations: The Federal rules restrict any use of the information to criminally investigate or prosecute any alcohol or drug abuse patient.[facility] HospitalIn the event this information is protected by the Federal Confidentiality of Alcohol and Drug Abuse Patient Records regulations: The Federal rules restrict any use of the information to criminally investigate or prosecute any alcohol or drug abuse patient.[facility] HospitalIn the event this information is protected by the Federal Confidentiality of Alcohol and Drug Abuse Patient Records regulations: The Federal rules restrict any use of the information to criminally investigate or prosecute any alcohol or drug abuse patient.[facility] HospitalIn the event this information is protected by the Federal Confidentiality of Alcohol and Drug Abuse Patient Records regulations: The Federal rules restrict any use of the information to criminally investigate or prosecute any alcohol or drug abuse patient.[facility] Reason for Visit (unrecogniz ed section [...] CT HEAD/BRAIN W/O CONTRAST MATERIAL Jenna Jim, COLLETTE.CUSTOMER RELATIONS ASSISTANT [address] [place] [address] Ct Imaging Referral ID Status Reason Start Date Expiration Date V isits Requested Visits Authorized [id number] Closed Auto-Generat ed Referral Patient Cleared - [...] Is also having head pain Reason Comments [facility] Reason Comments Results Reason Comments Consult Colonoscopy, anemia, no prior colonoscopy Specialty Diagnoses / Procedures Referred By Contac t Referred To Contact General Surgery Diagnoses Anemia, unspecified type Procedures CONSULT TO GENERAL SURGERY OFFICE/OUTPATIENT NEW HIGH MDM 60-74 MINUTES Martha Boston PA-C [address] [place] [address] Referral ID Status Reason Start Date Expiration Date Visits Requested Visits Authorized [id number] Pending Review PCP Requested Referral 2 06/26/2023 [...] NEW HIGH MDM 60-74 MINUTES Jenna Jim, COLLETTE.CUSTOMER RELATIONS ASSISTANT [address] [place] [id number] Referral ID Status Reason Start Date Expiration Date Visits Requested Visits Authorized [id number] Pending Review PCP Requested Referral 02/22/2022 02/22/2023 [...] ABD & PELVIS W/CONTRAST Martha Boston PA-C [address] [place] [address] [place] [address] Referral ID Status Reason Start Date Expiration Date V isits Requested Visits Authorized [id number] Closed Auto-Generate d Referral 07/09/2022 08/08/2022 2 2 Reason Comments Radiology US Specialty Diagnoses / Procedures Referred By Contac t Referred To Contact US IMAGING Diagnoses Abnormal weight loss Procedures US ABD RT UPPER QUADRANT US ABDOMINAL REAL TIME W/IMAGE LIMITED Martha Boston PA-C [address] [place] [address] [place] [address] Referral ID Status Reason Start Date Expiration Date V isits Requested Visits Authorized [id number] Closed Auto-Generate d Referral 06/25/2022 07/25/2023 1 1 Reason Comments ER Discharge Summary X-ray, H&P Reason Comments Outside Cardiology Cardiac Cath, Echo Reason Comments ER Discharge Summary X-ray Reason Comments Acute Visit Swelling in upper, l ower lips & tongue post OTC KANK-A use Reason Comments Outside Imaging Reason Comments [facility] ER report 10/23/23 Reason Comments External / [facility] EKG Reason Comments Wrist/forearm Injury left x 3 days, hit with 2x4 board on arm, bruising Reason Comments Ext / [facility] Reason Onset Date Comments Refill [...] Reason Comments ED Follow-up Reason Comments Outside [id number] Ordered Reason Comments Head Pain X 1 week Specialty Diagnoses / Procedures Referred By Carlos neff Referred To Contact MR IMAGING Diagnoses Thunderclap headache New onset headache Procedures MRI BRAIN WO/W IVCON MRI BRAIN BRAIN STEM W/O W/CONTRAST MATERIAL Martha Boston PA-C [address] [place] [address] [place] [address] Referral ID Status Reason Start Date Expiration Date V isits Requested Visits Authorized [id number] Closed Auto-Generat ed Referral Patient Cleared - Admin/Chairm an/Director advise to proceed or did not respond 10/07/2024 08/31/2025 1 1 Reason Comments New Patient Evaluation Specialty Diagnoses / Procedures Referred By Carlos neff Referred To Contact Diagnoses Hypersomnolence Snores Sleep initiation dysfunction Procedures CONSULT TO SLEEP MEDICINE - ADULT OFFICE/OUTPATIENT NEW HIGH MDM 60 MINUTES Nadir Grady MD [address] [place] [address] Phone: tel: fax: Referral ID Status Reason Start Date Expiration Date V isits Requested Visits Authorized [id number] Closed PCP Requested Referral 09/06/2024 09/06/2025 1 1 Reason Comments Outside MRI Reason Onset Date Comments Care Coordination 12/15/2024 Panel Manageme nt Review for Pharmacist Referral for Diabetes Management Reason Onset Date Comments Refill Request 01/27/2025 Reason Onset Date Comments Refill Request 02/23/2025 Reason Comments Abstract [facility] ED visit, withou t admission Care Teams (unrecognized sec tion and content) Customer Manager Relationship Specialty Start Date End Date Nadir Grady MD [address] [place] [address] PCP - General Family Practice 08/04/15 [facility] [address] [place] [address] Pharmacist Pharmacy 10/20/20 Karen PiperSh[facility] [address] [place] [address] Pharmacist Pharmacy 03/15/21 Customer Manager Relationship Specialty Start Date End Date Nadir Grady MD [address] [place] [address] PCP - General Family Practice 08/04/15 [facility]Sh[facility] [address] [place] [address] Pharmacist Pharmacy 10/20/20 [facility]Sh[facility] [address] [place] [address] Pharmacist Pharmacy 03/15/21 Customer Manager Relationship Specialty Start Date End Date Nadir Grday MD [address] [place] [address] PCP - General Family Practice 08/04/15 [facility] [address] [facility] [place] [address] Pharmacist Pharmacy 10/20/20 Karen Piper, [facility] [address] [place] [address] Pharmacist Pharmacy 03/15/21 Customer Manager Relationship Specialty Start Date End Date Nadir Grady MD [address] [facility] [place] [address] PCP - General Family Practice 08/04/15 Toddsilvia BriankatiShrin[facility] [address] [facility] [place] [address] Pharmacist Pharmacy 10/20/20 Karen Piper, [facility] [address] [facility] [place] [address] Pharmacist Pharmacy 03/15/21 Customer Manager Relationship Specialty Start Date End Date Nadir Grady MD [address] [facility] [place] [address] PCP - General Family Practice 08/04/15 Sharri Briankati, [facility] [address] [facility] [place] [address] Pharmacist Pharmacy 10/20/20 Karen Piper, [facility] [address] [facility] [place] [address] Pharmacist Pharmacy 03/15/21 Customer Manager Relationship Specialty Start Date End Date Nadir Grady MD [address] [facility] [place] [address] PCP - General Family Practice 08/04/15 Arnaud Harrell, [facility] [address] [facility] [place] [address] Pharmacist Pharmacy 10/20/20 Karen Piper, [facility] [address] [place] [address] Pharmacist Pharmacy 03/15/21 Yolanda Dean (Pa) [address] [facility] Sadafunm [facility] [place] [address] Referring Pulmonary and Critical Care Medicine 02/07/22 Customer Manager Relationship Specialty Start Date End Date Nadir Grady MD [address] [place] [address] PCP - General Family Practice 08/04/15 [facility]Sh[facility] [address] [place] [address] Pharmacist Pharmacy 10/20/20 HillsboroughKaren florShriners Hospitals for Children [address] [place] [address] Pharmacist Pharmacy 03/15/21 Yolanda Dean (Pa) [address] [place] [address] Referring Pulmonary and Critical Care Medicine 02/07/22 Customer Manager Relationship Specialty Start Date End Date Nadir Grady MD [address] [place] [address] PCP - General Family Practice 08/04/15 Sharri [facility]atiSh[facility] [address] [place] [address] Pharmacist Pharmacy 10/20/20 [facility]perSh[facility] [address] [place] [address] Pharmacist Pharmacy 03/15/21 Yolanda Daen (Pa) [address] [place] [address] Referring Pulmonary and Critical Care Medicine 02/07/22 Customer Manager Relationship Specialty Start Date End Date Nadir Grady MD [address] [place] [address] PCP - General Family Practice 08/04/15 [facility]rellSh[facility] [address] [place] [address] Pharmacist Pharmacy 10/20/20 Feliz KarenShriners Hospitals [facility] [address] [place] [address] Pharmacist Pharmacy 03/15/21 Yolanda Dean (Pa) [address] [facility] [place] [address] Referring Pulmonary and Critical Care Medicine 02/07/22 Customer Manager Relationship Specialty Start Date End Date Nadir Grady MD [address] [place] [address] PCP - General Family Practice 08/04/15 [facility] [address] [place] [address] Pharmacist Pharmacy 10/20/20 Feliz KarenSh[facility] [address] [place] [address] Pharmacist Pharmacy 03/15/21 Yolanda Dean (Pa) [address] [facility] [place] [address] Referring Pulmonary and Critical Care Medicine 02/07/22 Customer Manager Relationship Specialty Start Date End Date Nadir Grady MD [address] [place] [address] PCP - General Family Practice 08/04/15 Sharri [facility]atiSh[facility] [address] [place] [address] Pharmacist Pharmacy 10/20/20 Karen [facility]Sh[facility] [address] [place] [address] Pharmacist Pharmacy 03/15/21 Yolanda Dean (Pa) [address] [place] [address] Referring Pulmonary and Critical Care Medicine 02/07/22 Customer Manager Relationship Specialty Start Date End Date Nadir Grady MD [address] [place] [address] PCP - General Family Practice 08/04/15 Toddsilvia ArnaudShriners Hospit[facility] for [facility] [address] [place] [address] Pharmacist Pharmacy 10/20/20 Karen [facility]perSh[facility] [address] [place] [address] Pharmacist Pharmacy 03/15/21 Yolanda Dean (Pa) [address] [place] [address] Referring Pulmonary and Critical Care Medicine 02/07/22 Customer Manager Relationship Specialty Start Date End Date Nadir Grady MD [address] [place] [address] PCP - General Family Practice 08/04/15 [facility]rellSh[facility] [address] [place] [address] Pharmacist Pharmacy 10/20/20 FelizKaren florShriners Hospitals for [facility] [address] [place] [address] Pharmacist Pharmacy 03/15/21 Yolanda Dean (Pa) [address] [facility] [place] [address] Referring Pulmonary and Critical Care Medicine 02/07/22 Customer Manager Relationship Specialty Start Date End Date Nadir Grady MD [address] [place] [address] PCP - General Family Practice 08/04/15 [facility] [address] [place] [address] Pharmacist Pharmacy 10/20/20 [place] [facility] [address] [place] [address] Pharmacist Pharmacy 03/15/21 Yolanda Dean (Pa) [address] [place] [address] Referring Pulmonary and Critical Care Medicine 02/07/22 Customer Manager Relationship Specialty Start Date End Date Nadir Grady MD [address] [place] [address] PCP - General Family Practice 08/04/15 [facility] [address] [place] [address] Pharmacist Pharmacy 10/20/20 [place] [facility] [address] [place] [address] Pharmacist Pharmacy 03/15/21 Yolanda Dean (Pa) [address] [facility] [place] [address] Referring Pulmonary and Critical Care Medicine 02/07/22 Customer Manager Relationship Specialty Start Date End Date Nadir Grady MD [address] [place] [address] PCP - General Family Practice 08/04/15 [facility] vegaSh[facility] [address] [place] [address] Pharmacist Pharmacy 10/20/20 FelizKaren florShriners Hospit[facility] [address] [place] [address] Pharmacist Pharmacy 03/15/21 Yolanda Dean (Pa) [address] [facility] [place] [address] Referring Pulmonary and Critical Care Medicine 02/07/22 Customer Manager Relationship Specialty Start Date End Date Nadir Grady MD [address] [place] [address] PCP - General Family Practice 08/04/15 [facility] [address] [place] [address] Pharmacist Pharmacy 10/20/20 Karen [facility]perSh[facility] [address] [place] [address] Pharmacist Pharmacy 03/15/21 Yolanda Dean (Pa) [address] [place] [address] Referring Pulmonary and Critical Care Medicine 02/07/22 Customer Manager Relationship Specialty Start Date End Date Nadir Grady MD [address] [place] [address] PCP - General Family Practice 08/04/15 [facility] [address] [place] [address] Pharmacist Pharmacy 10/20/20 Karen [facility]TH[facility] [address] [facility] [place] [address] Pharmacist Pharmacy 03/15/21 Yolanda Dean (Pa) [address] [facility] [place] [address] Referring Pulmonary and Critical Care Medicine 02/07/22 Customer Manager Relationship Specialty Start Date End Date Nadir Grady MD [address] [place] [address] PCP - General Family Practice 08/04/15 [facility] [address] [facility] [place] [address] Pharmacist Pharmacy 10/20/20 [facility] [address] [place] [address] Pharmacist Pharmacy 03/15/21 Yolanda Dean (Pa) [address] [facility] Sadafunm [facility] [place] [address] Referring Pulmonary and Critical Care Medicine 02/07/22 Customer Manager Relationship Specialty Start Date End Date Nadir Grady MD [address] [place] [address] PCP - General Family Practice 08/04/15 [facility]Sh[facility] [address] [place] [address] Pharmacist Pharmacy 10/20/20 [place] [facility] [address] [place] [address] Pharmacist Pharmacy 03/15/21 Yolanda Dean (Pa) [address] [facility] [place] [address] Referring Pulmonary and Critical Care Medicine 02/07/22 Customer Manager Relationship Specialty Start Date End Date Nadir Grady MD [address] [place] [address] PCP - General Family Medicine 08/04/15 [facility]Sh[facility] [address] [place] [address] Pharmacist Pharmacy 10/20/20 [place] [facility]Sh[facility] [address] [place] [address] Pharmacist Pharmacy 03/15/21 Yolanda Dean (Pa) [address] [facility] [place] [address] Referring Pulmonary and Critical Care Medicine 02/07/22 Customer Manager Relationship Specialty Start Date End Date Nadir Grady MD [address] [place] [address] PCP - General Family Medicine 08/04/15 [facility] [address] [place] [address] Pharmacist Pharmacy 10/20/20 Feliz, KarenShrin[facility] [address] [place] [address] Pharmacist Pharmacy 03/15/21 Yolanda Dean (Pa) [address] [facility] [place] [address] Referring Pulmonary and Critical Care Medicine 02/07/22 Customer Manager Relationship Specialty Start Date End Date Nadir Grady MD [address] [place] [address] PCP - General Family Medicine 08/04/15 [facility]rellSh[facility] [address] [facility] [place] [address] Pharmacist Pharmacy 10/20/20 Karen [facility]perSh[facility] [address] [facility] [place] [address] Pharmacist Pharmacy 03/15/21 Yolanda Dean (Pa) [address] [facility] [place] [address] Referring Pulmonary and Critical Care Medicine 02/07/22 Customer Manager Relationship Specialty Start Date End Date Nadir Grady MD [address] [place] [address] PCP - General Family Medicine 08/04/15 [facility]rellSh[facility] [address] [place] [address] Pharmacist Pharmacy 10/20/20 Karen [facility]perSh[facility] [address] [place] [address] Pharmacist Pharmacy 03/15/21 Yolanda Dean (Pa) [address] [facility] [place] [address] Referring Pulmonary and Critical Care Medicine 02/07/22 Customer Manager Relationship Specialty Start Date End Date Nadir Grady MD [address] [place] [address] PCP - General Family Medicine 08/04/15 Arnaud Harrell, [facility] [address] [place] [address] Pharmacist Pharmacy 10/20/20 Karen [facility]Sh[facility] [address] [place] [address] Pharmacist Pharmacy 03/15/21 Yolanda Dean (Pa) [address] [facility] [place] [address] Referring Pulmonary and Critical Care Medicine 02/07/22 Customer Manager Relationship Specialty Start Date End Date Nadir Grady MD [address] [place] [address] PCP - General Family Medicine 08/04/15 rAnaud HarrellShriners Hospit[facility] for [facility] [address] [place] [address] Pharmacist Pharmacy 10/20/20 [place] KarenSh[facility] [address] [place] [address] Pharmacist Pharmacy 03/15/21 Yolanda Dean (Pa) [address] [facility] [place] [address] Referring Pulmonary and Critical Care Medicine 02/07/22 Customer Manager Relationship Specialty Start Date End Date Nadir Grady MD [address] [place] [address] PCP - General Family Medicine 08/04/15 Ar[facility]ud [facility]rellSh[facility] [address] [place] [address] Pharmacist Pharmacy 10/20/20 Feliz KarenShriners [facility] [address] [place] [address] Pharmacist Pharmacy 03/15/21 Yolanda Dean (Pa) [address] [facility] [place] [address] Referring Pulmonary and Critical Care Medicine 02/07/22 Customer Manager Relationship Specialty Start Date End Date Nadir Grady MD [address] [place] [address] PCP - General Family Medicine 08/04/15 [facility]Ar[facility] vegaSh[facility] [address] [place] [address] Pharmacist Pharmacy 10/20/20 [place]boroughKaren florShriners [facility] [address] [place] [address] Pharmacist Pharmacy 03/15/21 Yolanda Dean (Pa) [address] [facility] [place] [address] Referring Pulmonary and Critical Care Medicine 02/07/22 Customer Manager Relationship Specialty Start Date End Date Nadir Grady MD [address] [place] [address] PCP - General Family Medicine 08/04/15 [facility]Arna[facility] vegaSh[facility] [address] [place] [address] Pharmacist Pharmacy 10/20/20 Karen PiperShriners [facility] [address] [place] [address] Pharmacist Pharmacy 03/15/21 Yolanda Dean (Pa) [address] [facility] [place] [address] Referring Pulmonary and Critical Care Medicine 02/07/22 Customer Manager Relationship Specialty Start Date End Date Nadir Grady MD [address] [place] [address] PCP - General Family Medicine 08/04/15 [facility] HospitalArnaud vegaSh[facility] [address] [place] [address] Pharmacist Pharmacy 10/20/20 FelizKaren florShriners Hospit[facility] for [facility] [address] [facility] [place] [address] Pharmacist Pharmacy 03/15/21 Yolanda Dean (Pa) [address] [facility] [place] [address] Referring Pulmonary and Critical Care Medicine 02/07/22 Customer Manager Relationship Specialty Start Date End Date Nadir Grady MD [address] [place] [address] PCP - General Family Medicine 08/04/15 Ar[facility]ud [facility]rellShrin[facility] [address] [facility] [place] [address] Pharmacist Pharmacy 10/20/20 [facility]boroughKarenSh[facility] [address] [place] [address] Pharmacist Pharmacy 03/15/21 Yolanda Dean (Pa) [address] [facility] Sad[facility] [place] [address] Referring Pulmonary and Critical Care Medicine 02/07/22 Customer Manager Relationship Specialty Start Date End Date Nadir Grady MD [address] [place] [address] PCP - General Family Medicine 08/04/15 Shar[facility] [address] [place] [address] Pharmacist Pharmacy 10/20/20 HillsboroughKaren florShriners Hospitals for Children [address] [place] [address] Pharmacist Pharmacy 03/15/21 Yolanda Dean (Pa) [address] [facility] [place] [address] Referring Pulmonary and Critical Care Medicine 02/07/22 Customer Manager Relationship Specialty Start Date End Date Nadir Grady MD [address] [place] [address] PCP - General Family Medicine 08/04/15 Arnaud HarrellShrin[facility] [address] [place] [address] Pharmacist Pharmacy 10/20/20 Karen PiperShriners Hospitals for Children [address] [place] [address] Pharmacist Pharmacy 03/15/21 Yolanda Dean (Pa) [address] [facility] [place] [address] Referring Pulmonary and Critical Care Medicine 02/07/22 Customer Manager Relationship Specialty Start Date End Date Nadir Grady MD [address] [place] [address] PCP - General Family Medicine 08/04/15 Arnaud Harrell, [facility] [address] [place] [address] Pharmacist Pharmacy 10/20/20 Karen [facility]perSh[facility] [address] [place] [address] Pharmacist Pharmacy 03/15/21 Yolanda Dean (Pa) [address] [facility] [place] [address] Referring Pulmonary and Critical Care Medicine 02/07/22 Customer Manager Relationship Specialty Start Date End Date Nadir Grady MD [address] [place] [address] PCP - General Family Medicine 08/04/15 Toddsilvia Arnaud, [facility] [address] [place] [address] Pharmacist Pharmacy 10/20/20 Karen Piper, [facility] [address] [place] [address] Pharmacist Pharmacy 03/15/21 Yolanda Dean (Pa) [address] [facility] [place] [address] Referring Pulmonary and Critical Care Medicine 02/07/22 Customer Manager Relationship Specialty Start Date End Date Nadir Grady MD [address] [place] [address] PCP - General Family Medicine 08/04/15 ToddArnaud vegaShriners Hospitals for Children [address] [place] [address] Pharmacist Pharmacy 10/20/20 Karen [facility]perSh[facility] [address] [place] [address] Pharmacist Pharmacy 03/15/21 Yolanda Dean (Pa) [address] [facility] [place] [address] Referring Pulmonary and Critical Care Medicine 02/07/22 Customer Manager Relationship Specialty Start Date End Date Nadir Grady MD [address] [place] [address] PCP - General Family Medicine 08/04/15 Toddsilvia Arnaud, [facility] [address] [place] [address] Pharmacist Pharmacy 10/20/20 Feliz KarenShriners Hospitals for [facility] [address] [place] [address] Pharmacist Pharmacy 03/15/21 Yolanda Dean (Pa) [address] [facility] [place] [address] Referring Pulmonary and Critical Care Medicine 02/07/22 Customer Manager Relationship Specialty Start Date End Date Nadir Grady MD [address] [place] [address] PCP - General Family Medicine 08/04/15 Arnaud Harrell, [facility] [address] [place] [address] Pharmacist Pharmacy 10/20/20 Karen PiperShriners [facility] [address] [place] [address] Pharmacist Pharmacy 03/15/21 Yolanda Dean (Pa) [address] [facility] [place] [address] Referring Pulmonary and Critical Care Medicine 02/07/22 Customer Manager Relationship Specialty Start Date End Date Nadir Grady MD [address] [place] [address] PCP - General Family Medicine 08/04/15 Anraud Harrell, [facility] [address] [place] [address] Pharmacist Pharmacy 10/20/20 Karen [facility]perSh[facility] [address] [place] [address] Pharmacist Pharmacy 03/15/21 Yolanda Dean (Pa) [address] [facility] [place] [address] Referring Pulmonary and Critical Care Medicine 02/07/22 Customer Manager Relationship Specialty Start Date End Date Nadir Grady MD [address] [place] [address] PCP - General Family Medicine 08/04/15 [facility] vegaSh[facility] [address] [place] [address] Pharmacist Pharmacy 10/20/20 Karen PiperShriners Hospit[facility] [address] [place] [address] Pharmacist Pharmacy 03/15/21 Yolanda Dean (Pa) [address] [place] [address] Referring Pulmonary and Critical Care Medicine 02/07/22 Customer Manager Relationship Specialty Start Date End Date Nadir Grady MD [address] [place] [address] PCP - General Family Medicine 08/04/15 [facility] vegaSh[facility] [address] [place] [address] Pharmacist Pharmacy 10/20/20 Karen PiperShriners [facility] [address] [place] [address] Pharmacist Pharmacy 03/15/21 Yolanda Dean (Pa) [address] [place] [address] Referring Pulmonary and Critical Care Medicine 02/07/22 Customer Manager Relationship Specialty Start Date End Date Nadir Grady MD [address] [place] [address] PCP - General Family Medicine 08/04/15 ToddArnaud vegaShriners Hospitals for [facility] [address] [place] [address] Pharmacist Pharmacy 10/20/20 FelizKaren florShriners Hospitals for Children [address] [facility] [place] [address] Pharmacist Pharmacy 03/15/21 Yolanda Dean (Pa) [address] [facility] [place] [address] Referring Pulmonary and Critical Care Medicine 02/07/22 Customer Manager Relationship Specialty Start Date End Date Nadir Grady MD [address] [place] [address] PCP - General Family Medicine 08/04/15 [facility] HospitalAr[facility] vegaSh[facility] [address] [facility] [place] [address] Pharmacist Pharmacy 10/20/20 FelizKaren florShriners Hospit[facility] [address] [place] [address] Pharmacist Pharmacy 03/15/21 Yolanda Dean (Pa) [address] [place] [address] Referring Pulmonary and Critical Care Medicine 02/07/22 Customer Manager Relationship Specialty Start Date End Date Nadir Grady MD [address] [place] [address] PCP - General Family Medicine 08/04/15 Arnaud HarrellShriners Hospit[facility] [address] [facility] [place] [address] Pharmacist Pharmacy 10/20/20 FelizKaren florShriners Hospit[facility] [address] [facility] [place] [address] Pharmacist Pharmacy 03/15/21 Yolanda Dean (Pa) [address] [place] [address] Referring Pulmonary and Critical Care Medicine 02/07/22 Customer Manager Relationship Specialty Start Date End Date Nadir Grady MD [address] [facility] [place] [address] PCP - General Family Medicine 08/04/15 Arnaud HarrellShriners Hospit[facility] [address] [facility] [place] [address] Pharmacist Pharmacy 10/20/20 [place]boroughKaren florShrin[facility] [address] [facility] [place] [address] Pharmacist Pharmacy 03/15/21 Yolanda Dean (Pa) [address] [place] [address] Referring Pulmonary and Critical Care Medicine 02/07/22 Customer Manager Relationship Specialty Start Date End Date Nadir Grady MD [address] [place] [address] PCP - General Family Medicine 08/04/15 Arnaud HarrellShriners [facility] [address] [facility] [place] [address] Pharmacist Pharmacy 10/20/20 Karen PiperShriners [facility] [address] [facility] [place] [address] Pharmacist Pharmacy 03/15/21 Yolanda Dean (Pa) [address] [place] [address] Referring Pulmonary and Critical Care Medicine 02/07/22 Customer Manager Relationship Specialty Start Date End Date Nadir Grady MD [address] [facility] [place] [address] PCP - General Family Medicine 08/04/15 Arnaud Harrell, [facility] [address] [place] [address] Pharmacist Pharmacy 10/20/20 Karen [facility]perShrin[facility] [address] [place] [address] Pharmacist Pharmacy 03/15/21 Yolanda Dean (Pa) [address] [place] [address] Referring Pulmonary and Critical Care Medicine 02/07/22 Customer Manager Relationship Specialty Start Date End Date Nadir Grady MD [address] [place] [address] PCP - General Family Medicine 08/04/15 Arnaud HarrellShriners [facility] [address] [place] [address] Pharmacist Pharmacy 10/20/20 Karen [facility]perShrin[facility] [address] [place] [address] Pharmacist Pharmacy 03/15/21 Yolanda Dean (Pa) [address] [place] [address] Referring Pulmonary and Critical Care Medicine 02/07/22 [...] MD Primary Care Provider Active Cheli Diaz ANIMAL ANATOMIST, ANIMAL ANATOMIST-C Attending Provider Active Team Status: Inactive Member Role Status Dates Dr. Nadir Grady MD Primary Care Provider Active Dr. Jd Kern MD Attending Provider, Referring Pro vider Active Customer Manager Relationship Specialty Start Date End Date Nadir Grady MD [address] [place] [address] PCP - General Family Medicine 08/04/15 [facility] [address] [place] [address] Pharmacist Pharmacy 10/20/20 [facility]KarenSh[facility] [address] [place] [address] Pharmacist Pharmacy 03/15/21 Yolanda Dean PA [address] [place] [address] Referring Pulmonary and Critical Care Medicine 02/07/22 Customer Manager Relationship Specialty Start Date End Date Nadir Grady MD [address] [place] [address] PCP - General Family Medicine 08/04/15 [facility] [address] [place] [address] Pharmacist Pharmacy 10/20/20 [facility]Sh[facility] [address] [place] [address] Pharmacist Pharmacy 03/15/21 Yolanda Dean PA [address] [place] [address] Referring Pulmonary and Critical Care Medicine 02/07/22 Customer Manager Relationship Specialty Start Date End Date Nadir Grady MD [address] [place] [address] PCP - General Family Medicine 08/04/15 Arnaud HarrellShriners [facility] [address] [place] [address] Pharmacist Pharmacy 10/20/20 Karen [facility]perSh[facility] [address] [place] [address] Pharmacist Pharmacy 03/15/21 Yolanda Dean PA [address] [facility] [place] [address] Referring Pulmonary and Critical Care Medicine 02/07/22 Customer Manager Relationship Specialty Start Date End Date Nadir Grady MD [address] [place] [address] PCP - General Family Medicine 08/04/15 Arnaud Harrell, [facility] [address] [facility] [place] [address] Pharmacist Pharmacy 10/20/20 Karen Piper, [facility] [address] [place] [address] Pharmacist Pharmacy 03/15/21 Yolanda Dean PA [address] [place] [address] Referring Pulmonary and Critical Care Medicine 02/07/22 Customer Manager Relationship Specialty Start Date End Date Nadir Grady MD [address] [facility] [place] [address] PCP - General Family Medicine 08/04/15 Arnaud Harrell, [facility] [address] [place] [address] Pharmacist Pharmacy 10/20/20 Karen [facility]perSh[facility] [address] [place] [address] Pharmacist Pharmacy 03/15/21 Yolanda Dean PA [address] [place] [address] Referring Pulmonary and Critical Care Medicine 02/07/22 Customer Manager Relationship Specialty Start Date End Date Nadir Grady MD [address] [facility] [place] [address] PCP - General Family Medicine 08/04/15 Toddsilvia ArnaudShriners Hospitals for [facility] [address] [facility] [place] [address] Pharmacist Pharmacy 10/20/20 Karen Piper, [facility] [address] [facility] [place] [address] Pharmacist Pharmacy 03/15/21 Yolanda Dean PA [address] [facility] [place] [address] Referring Pulmonary and Critical Care Medicine 02/07/22 Customer Manager Relationship Specialty Start Date End Date Nadir Grady MD [address] [place] [address] PCP - General Family Medicine 08/04/15 Sharri Arnaud, [facility] [address] [facility] [place] [address] Pharmacist Pharmacy 10/20/20 Karen Piper, [facility] [address] [facility] [place] [address] Pharmacist Pharmacy 03/15/21 Yolanda Dean PA [address] [facility], [place] [address] Referring Pulmonary and Critical Care Medicine 02/07/22 Customer Manager Relationship Specialty Start Date End Date Nadir Grady MD [address] [place], [place] [address] PCP - General Family Medicine 08/04/15 Karen Piper, [facility] [address] [place] [address] Pharmacist Pharmacy 03/15/21 Yolanda Dean PA [address] [place], [place] [address] Referring Pulmonary and Critical Care Medicine 02/07/22 [...] Dr. Foster Mayberry DO Attending Provider Active Customer Manager Relationship Specialty Start Date End Date Nadir Grady MD [address] [place] [address] PCP - General [facility] 08/04/15 [facility] [address] [place] [address] Pharmacist Pharmacy 03/15/21 Yolanda Dean PA [address] [place] [address] Referring Pulmonary and Critical Care Medicine 02/07/22 Team Status: Active Member Role Status Dates Dr. Nadir Grady MD Primary Care Provider Active Dr. Ez Hurst MD Attending Provider Active Team Status: Inactive Member Role Status Dates Dr. Nadir Grady MD Primary Care Provider Active Dr. Ivy Toribio MD Emergency Provider Active Customer Manager Relationship Specialty Start Date End Date Nadir Grady MD [address] [place] [address] PCP - General [facility] Medicine 08/04/15 [facility] [address] [place] [address] Pharmacist Pharmacy 03/15/21 Yolanda Dean PA [address] [place] [address] Referring Pulmonary and Critical Care Medicine 02/07/22 [...] Dr. Jered Huff DO Emergency Provider Active Customer Manager Relationship Specialty Start Date End Date Nadir Grady MD [address] [facility] [place] [address] PCP - General Family Medicine 08/04/15 [place] [facility] [address] [place] [address] Pharmacist Pharmacy 03/15/21 Yolanda Dean PA [address] [facility] [place] [address] Referring Pulmonary and Critical Care Medicine 02/07/22 Customer Manager Relationship Specialty Start Date End Date Nadir Grady MD [address] [facility] [place] [address] PCP - General Family Medicine 08/04/15 [place] [facility] [address] [facility] [place] [address] Pharmacist Pharmacy 03/15/21 Yolanda Dean PA [address] [place] [address] Referring Pulmonary and Critical Care Medicine 02/07/22 [...] Jered Huff DO Attending Provider, Emergency P rovider Active Team Status: Inactive Member Role Status [...] Inactive Member Role Status Dates Dr. Nadir Gardy MD Primary Care Provider Active Dr. Jered Huff DO Emergency Provider Active Dr. Gildardo Walton MD Admit Provider, Other Provider Active Dr. Martina Cr MD Attending Provider Active Customer Manager Relationship Specialty Start Date End Date Nadir Grady MD [address] [place], [place] [address] PCP - General Family Medicine 08/04/15 Karen Piper [facility] [address] [place], [place] [address]32381 Pharmacist Pharmacy 03/15/21 Yolanda Dean PA [address] [place], [place] [address]3221 Referring Pulmonary and Critical Care Medicine 02/07/22 Customer Manager Relationship Specialty Start Date End Date Nadir Grady MD [address] [place], [place] [address]65351 PCP - General Family Medicine 08/04/15 Karen Piper, [facility] [address] [place] [address] Pharmacist Pharmacy 03/15/21 Yolanda Dean PA [address] [place] [address] Referring Pulmonary and Critical Care Medicine 02/07/22 [...] Dr. Gildardo Walton MD Referring Provider Active Customer Manager Relationship Specialty Start Date End Date Nadir Grady MD [address] [place] [address] PCP - General Family Medicine 08/04/15 Arnaud Harrell, [facility] [address] [place] [address] Pharmacist Pharmacy 10/20/20 09/30/23 [facility] [address] [place] [address] Pharmacist Pharmacy 03/15/21 Yolanda Vargas PA-C [address] [place] [address] Referring Pulmonary and Critical Care Medicine 02/07/22 Customer Manager Relationship Specialty Start Date End Date Nadir Grady MD [address] [place] [address] PCP - General Family Medicine 08/04/15 [place] [facility] [address] [place] [address] Pharmacist Pharmacy 03/15/21 Yolanda Vargas PA-C [address] [place] [address] Referring Pulmonary and Critical Care Medicine 02/07/22 Customer Manager Relationship Specialty Start Date End Date Nadir Grady MD [address] [place] [address] PCP - General Family Medicine 08/04/15 [place] [facility] [address] [place] [address] Pharmacist Pharmacy 03/15/21 Yolanda Vargas PA-C [address] [facility] [place] [address] Referring Pulmonary and Critical Care Medicine 02/07/22 Customer Manager Relationship Specialty Start Date End Date Nadir Grady MD [address] [facility] [place] [address] PCP - General Family Medicine 08/04/15 [place] [facility] [address] [place] [address] Pharmacist Pharmacy 03/15/21 Yolanda Vargas PA-C [address] [place] [address] Referring Pulmonary and Critical Care Medicine 02/07/22 Customer Manager Relationship Specialty Start Date End Date Nadir Grady MD [address] [place] [address] PCP - General Family Medicine 08/04/15 Feliz, [facility]Sh[facility] [address] [place] [address] Pharmacist Pharmacy 03/15/21 Yolanda Vargas PA-C [address] [place] [address] Referring Pulmonary and Critical Care Medicine 02/07/22 Customer Manager Relationship Specialty Start Date End Date Nadir Grady MD [address] [place] [address] PCP - General Family Medicine 08/04/15 FelizVirginie florilyShriners Hospitals for Children [address] [place] [address] Pharmacist Pharmacy 03/15/21 Yolanda Vargas PA-C [address] [place] [address] Referring Pulmonary and Critical Care Medicine 02/07/22 Customer Manager Relationship Specialty Start Date End Date Nadir Grady MD [address] [place] [address] PCP - General Family Medicine 08/04/15 Ar[facility]ud [facility]rellShrin[facility] [address] [place] [address] Pharmacist Pharmacy 10/20/20 09/30/23 Feliz, KarenShriners [facility] [address] [place] [address] Pharmacist Pharmacy 03/15/21 Yolanda Vargas PA-C [address] [place] [address] Referring Pulmonary and Critical Care Medicine 02/07/22 Customer Manager Relationship Specialty Start Date End Date Nadir Grady MD [address] [place] [address] PCP - General Family Medicine 08/04/15 Ar[facility]ud [facility]rellShrin[facility] [address] [facility] [place] [address] Pharmacist Pharmacy 10/20/20 09/30/23 FelizKaren florShriners Hospit[facility] [address] [facility] [place] [address] Pharmacist Pharmacy 03/15/21 Yolanda Vargas PA-C [address] [facility] [place] [address] Referring Pulmonary and Critical Care Medicine 02/07/22 Customer Manager Relationship Specialty Start Date End Date Nadir Grady MD [address] [place] [address] PCP - General Family Medicine 08/04/15 [facility]ud [facility]rellSh[facility] [address] [facility] [place] [address] Pharmacist Pharmacy 10/20/20 09/30/23 Feliz KarenShriners [facility] [address] [place] [address] Pharmacist Pharmacy 03/15/21 Customer Manager Relationship Specialty Start Date End Date Nadir Grady MD [address] [place] [address] PCP - General Family Medicine 08/04/15 Customer Manager Relationship Specialty Start Date End Date Nadir Grady MD [address] [place] [address] PCP - General Family Medicine 08/04/15 Customer Manager Relationship Specialty Start Date End Date Nadir Grady MD [address] [place] [address] PCP - General Family Medicine 08/04/15 [place] Karen, [facility] [address] [place] [address] Pharmacist Pharmacy 03/15/21 Yolanda Vargas PA-Terence [address] [place] [address] Referring Pulmonary and Critical Care Medicine 02/07/22 Customer Manager Relationship Specialty Start Date End Date Nadir Grady MD [address] [place] [address] PCP - General Family Medicine 08/04/15 [place] Karen, [facility] [address] [place] [address] Pharmacist Pharmacy 03/15/21 Yolanda Vargas PA-Terence [address] [place] [address] Referring Pulmonary and Critical Care Medicine 02/07/22 Customer Manager Relationship Specialty Start Date End Date Nadir Grady MD [address] [place] [address] PCP - General Family Medicine 08/04/15 [place] Karen, [facility] [address] [place] [address] Pharmacist Pharmacy 03/15/21 Yolanda Vargas PA-C [address] [place] [address] Referring Pulmonary and Critical Care Medicine 02/07/22 Customer Manager Relationship Specialty Start Date End Date Nadir Grady MD [address] [place] [address] PCP - General Family Medicine 08/04/15 [facility] [address] [place] [address] Pharmacist Pharmacy 03/15/21 Yolanda Vargas PA-C [address] [place] [address] Referring Pulmonary and Critical Care Medicine 02/07/22 Customer Manager Relationship Specialty Start Date End Date Nadir Grady MD [address] [place] [address] PCP - General Family Medicine 08/04/15 [facility] [address] [place] [address] Pharmacist Pharmacy 03/15/21 Yolanda Vargas PA-C [address] [place] [address] Referring Pulmonary and Critical Care Medicine 02/07/22 Customer Manager Relationship Specialty Start Date End Date Nadir Grady MD [address] [place] [address] PCP - General Family Medicine 08/04/15 [facility] [address] [place] [address] Pharmacist Pharmacy 03/15/21 Yolanda Vargas PA-C [address] [place] [address] Referring Pulmonary and Critical Care Medicine 02/07/22 Franny Catalan APRN.CUSTOMER RELATIONS ASSISTANT [address] [facility] [place] [address] Truck Manager Family Medicine 08/07/24 Martha Boston PA-C [address] [place] [address] Truck Manager Family [facility] 08/07/24 Customer Manager Relationship Specialty Start Date End Date Nadir Grady MD [address] [place] [address] PCP - General Family Medicine 08/04/15 [facility] [address] [place] [address] Pharmacist Pharmacy 03/15/21 Yolanda Vargas PA-C [address] [place] [address] Referring Pulmonary and Critical Care Medicine 02/07/22 Franny Catalan, COLLETTE.CUSTOMER RELATIONS ASSISTANT [address] [facility] [place] [address] Truck Manager Family [facility] 08/07/24 Martha Boston PA-C [address] [place] [address] Truck Manager Family [facility] 08/07/24 Customer Manager Relationship Specialty Start Date End Date Nadir Grady MD [address] [place] [address] PCP - General Family Medicine 08/04/15 [place] flor, [facility] [address] [place] [address] Pharmacist Pharmacy 03/15/21 Yolanda Vargas PA-C [address] [place] [address] Referring Pulmonary and Critical Care Medicine 02/07/22 Franny Catalan, COLLETTE.CUSTOMER RELATIONS ASSISTANT [address] [facility] [place] [address] [facility] 08/07/24 Martha Boston PA-C [address] [place] [address] [facility] 08/07/24 Customer Manager Relationship Specialty Start Date End Date Nadir Grady MD [address] [place] [address] PCP - General Family Medicine 08/04/15 [facility] [address] [place] [address] Pharmacist Pharmacy 03/15/21 Yolanda Vargas PA-C [address] [place] [address] Referring Pulmonary and Critical Care Medicine 02/07/22 Franny Catalan, COLLETTE.CUSTOMER RELATIONS ASSISTANT [address] [facility] [place] [address] Truck Manager Family [facility] 08/07/24 Martha Boston PA-C [address] [place] [address] [facility] 08/07/24 Customer Manager Relationship Specialty Start Date End Date Nadir Grady MD [address] [place] [address] PCP - General Family Medicine 08/04/15 [facility] [address] [place] [address] Pharmacist Pharmacy 03/15/21 Yolanda Vargas PA-C [address] [place] [address] Referring Pulmonary and Critical Care Medicine 02/07/22 Franny Catalan APRN.CUSTOMER RELATIONS ASSISTANT [address] [place] [address] [facility] 08/07/24 Martha Boston PA-C [address] [place] [address] [facility] 08/07/24 Customer Manager Relationship Specialty Start Date End Date Nadir Grady MD [address] [place] [address] PCP - General Family Medicine 08/04/15 Karen Pipre [facility] [address] [place] [address] Pharmacist Pharmacy 03/15/21 Yolanda Vargas PA-C [address] [place] [address] Referring Pulmonary and Critical Care Medicine 02/07/22 Franny Catalan, COLLETTE.CUSTOMER RELATIONS ASSISTANT [address] [facility] [place] [address] [facility] 08/07/24 Martha Botson PA-C [address] [place] [address] [facility] 08/07/24 Customer Manager Relationship Specialty Start Date End Date Nadir Grady MD [address] [place] [address] PCP - General Family Medicine 08/04/15 [place] [facility] [address] [place] [address] Pharmacist Pharmacy 03/15/21 Yolanda Vargas PA-C [address] [place] [address] Referring Pulmonary and Critical Care Medicine 02/07/22 Franny Catalan, COLLETTE.CUSTOMER RELATIONS ASSISTANT [address] [facility] [place] [address] Truck Manager Family Medicine 08/07/24 Martha Boston PA-C [address] [place] [address] Truck Manager Family Medicine 08/07/24 Customer Manager Relationship Specialty Start Date End Date Nadir Grady MD [address] [place] [address] PCP - General Family Medicine 08/04/15 [place] [facility] [address] [place] [address] Pharmacist Pharmacy 03/15/21 Yolanda Dean PA-C [address] [place] [address] Referring Pulmonary and Critical Care Medicine 02/07/22 Franny Catalan, COLLETTE.CUSTOMER RELATIONS ASSISTANT [address] [facility] [place] [address] Truck Manager Family Medicine 08/07/24 Martha Boston PA-C [address] [place] [address] [facility] 08/07/24 Customer Manager Relationship Specialty Start Date End Date Nadir Grady MD [address] [place] [address] PCP - General Family Medicine 08/04/15 [place] [facility] [address] [place] [address] Pharmacist Pharmacy 03/15/21 Yolanda Dean PA-C [address] [place] [address] Referring Pulmonary and Critical Care Medicine 02/07/22 Franny Catalan, COLLETTE.CUSTOMER RELATIONS ASSISTANT [address] [place] [address] Truck Manager Family [facility] 08/07/24 Martha Boston PA-C [address] [place] [address] [facility] 08/07/24 Customer Manager Relationship Specialty Start Date End Date Nadir Grady MD [address] [place] [address] PCP - General Family Medicine 08/04/15 [place] Karen, [facility] [address] [place] [address] Pharmacist Pharmacy 03/15/21 Yolanda Dean PA-C [address] [place] [address] Referring Pulmonary and Critical Care Medicine 02/07/22 Franny Catalan, COLLETTE.CUSTOMER RELATIONS ASSISTANT [address] [place], [place] [address] [facility] 08/07/24 Martha Boston PA-C [address] [place], [place] [id number] [facility] 08/07/24 Customer Manager Relationship Specialty Start Date End Date Nadir Grady MD [address] [place], [place] [id number] PCP - General Family Medicine 08/04/15 Karen Piper [facility] [address] [place], [place] [id number] Pharmacist Pharmacy 03/15/21 Yolanda Dean PA-C [address] [place], [place] [address]591 Referring Pulmonary and Critical Care Medicine 02/07/22 Franny Catalan APRN.CUSTOMER RELATIONS ASSISTANT [address] [place], [place] [id number] [facility] 08/07/24 Martha Boston PA-C [address] [place], [place] [id number] [facility] 08/07/24 Team Status: Active Member [...] September 08, 2024 End: September 08, 2024 CAMELIA Aquino Attending Provider Active Start: September 08, 2024 [...] 2024 End: November 09, 2024 Molly Houser ANIMAL ANATOMIST, ANIMAL ANATOMIST-C Attending Provider Active Start: November 09, 2024 [...] December 08, 2024 End: December 08, 2024 Customer Manager Relationship Specialty Start Date End Date Nadir Grady MD [address] [place] [address] PCP - General Family Medicine 12/06/24 Karen Piper RP [address] [place], [place] 334341 Pharmacist Pharmacy 03/15/21 Yolanda Dean PA-C [address] [place] [address] Referring Pulmonary and Critical Care Medicine 02/07/22 Franny Catalan, TRANSMISSION AND COORDINATION ENGINEER.CUSTOMER RELATIONS ASSISTANT [address] [place], [place] [address] [facility] 08/07/24 Martha Boston PA-C [address] [place] [address] [facility] 08/07/24 Customer Manager Relationship Specialty Start Date End Date Nadir Grady MD [address] [place] [address] PCP - General Family Medicine 12/06/24 [place]aren [facility] [address] [place], [place] 537221 Pharmacist Pharmacy 03/15/21 Yolanda Dean PA-C [address] [place] [address] Referring Pulmonary and Critical Care Medicine 02/07/22 Franny Catalan, COLLETTE.CUSTOMER RELATIONS ASSISTANT [address] [place] [address] [facility] 08/07/24 Martha Boston PA-C [address] [place] [address] [facility] 08/07/24 Team Status: Inactive Member [...] Provider Active S tart: December 23, 2024 Customer Manager Relationship Specialty Start Date End Date Nadir Grady MD [address] [place], [place] [address] PCP - General Family Medicine 12/06/24 Karen Piper, [facility] [address] [place], [place] [address]21 Pharmacist Pharmacy 03/15/21 Yolanda Dean PA-C [address] [place], [place] [address]261 Referring Pulmonary and Critical Care Medicine 02/07/22 Martha Boston PA-C [address] [place], [place] 343781 Truck Manager Family Medicine 08/07/24 Team Status: Active Member [...] February 22, 2025 End: February 22, 2025 Customer Manager Relationship Specialty Start Date End Date Nadir Grady MD [address] [place] [address] PCP - General Family Medicine 12/06/24 [place] [facility] [address] [place] [address] Pharmacist Pharmacy 03/15/21 Yolanda Dean PA-C [address] [place] [address] Referring Pulmonary and Critical Care Medicine 02/07/22 Franny Catalan APRN.CUSTOMER RELATIONS ASSISTANT [address] [place] [address] Truck Manager Family Medicine 01/31/25 Martha Boston PA-C [address] [place] [address] Truck Manager Family [facility] 01/31/25 Customer Manager Relationship Specialty Start Date End Date Nadir Grady MD [address] [place] [address] PCP - General Family Medicine 12/06/24 [place] [facility] [address] [place] [address] Pharmacist Pharmacy 03/15/21 Yolanda Dean PA-C [address] [place] [address] Referring Pulmonary and Critical Care Medicine 02/07/22 Franny Catalan APRN.CUSTOMER RELATIONS ASSISTANT [facility] [place] [address] Truck Manager Family [facility] 01/31/25 Martha Boston PA-C [address] [place] [address] [facility] 01/31/25 Customer Manager Relationship Specialty Start Date End Date Nadir Grady MD [address] [place] [id number] PCP - General Family Medicine 12/06/24 Karen Piper, [facility] [address] [place], [place] 2027[address] Pharmacist Pharmacy 03/15/21 Yolanda Dean PA-C [address] [place] [phone] Referring Pulmonary and Critical Care Medicine 02/07/22 Franny Catalan APRN.CNP [address] [place] [id number] [facility] 01/31/25 Martha Boston PA-C [address] [place] [phone] [facility] 01/31/25 Team Status: Active Member Role/Relationship Status Dates Dr. Nadir Grady MD Primary Care Provider Active Team Status: Inactive Member Role/Relationship Status Dates Dr. Nadir Grady MD Primary Care Provider Active Start: November 09, 2024 End: November 09, 2024 Molly Houser ANIMAL ANATOMIST, ANIMAL ANATOMIST-C Attending Provider Active Start: November 09, 2024 [...] 23, 2024 End: December 23, 2024 Yolanda DENISE, PA Attending Provider Active Start: December 23, 2024 End: December 23, 2024 Yolanda DENISE, PA Referring Provider Active Start: December 23, 2024 End: December 23, 2024 Team Status: Active Member Role/Relationship Status Dates Dr. Nadir Grady MD Primary Care Provider Active Start: December 23, 2024 Dr. Jered Egan MD Attending Provider Active S tart: December 23, 2024 Yolanda DENISE, PA Referring Provider Active Start: December 23, [...] December 08, 2024 Yolanda Dean PA, PA Referring Provider Active Start: December 08, [...] Active S tart: December 23, 2024 Yolanda DENISE, PA Referring Provider Active Start: December 23, [...] March 10, 2025 End: March 10, 2025 Yolanda DENISE, PA Attending Provider Active Start: March 10, 2025 End: March 10, 2025 Yolanda DENISE, CAMELIA Referring Provider Active Start: March 10, 2025 [...] BE BASED ON THE PRIMARY CLINICAL RECORDS. [employer] [facility]. provides no warranty or guarantee of the accuracy or completeness of information in this document.
[2025-03-25] MEDS: 0.9% Normal Saline (1000mL) 1,000 ML 999 ML IV (07:45)
[2025-03-25 07:55] LABS: Hematocrit 37.8 % (40-54); Hemoglobin 12.7 g/dL (13.0-16.5); Immature Granulocytes Count 0.050 X10^3/uL (0.0-0.0); Mean Corp Hgb Conc 33.6 g/dL (32-36); Mean Corpuscular Volume 88.5 fL (80-94); Mean Platelet Vol. 9.7 fl (6.2-12.0); NRBC Flagged by Analyzer 0 % (0-5); POSITIVE DIFFERENTIAL YES; Platelet Count 189 K/mm3 (150-450); RBC Distribution Width CV 12.3 % (11.6-14.6); RBC Distribution Width SD 39.7 fl (35.1-43.9); Red Blood Count 4.27 M/mm3 (4.6-6.2); White Blood Count 9.9 K/mm3 (4.4-11.0)
[2025-03-25 08:07] VITALS: BP 119/69; BP 120/75; BP 131/73; PULSE 88; PULSE 89; PULSE 93
[2025-03-25 08:20] LABS: Anion Gap 14 (5-15); BUN 27 mg/dL (4-19); BUN/Creat Ratio 32.2 RATIO (10-20); Calcium,Total 8.7 mg/dL (7.6-11.0); Carbon Dioxide 18.8 mmol/L (21.0-32.0); Chloride 100 mmol/L (98-108); Estimated Creatinine Clearance 81.11 ml/min (50-250); Glucose 406 mg/dL (70-99); Potassium 4.6 mmol/L (3.3-5.1); Troponin T High Sensitivity 10 ng/L (<=22)
[2025-03-25 08:59] VITALS: PULSE 86; RESP 20; O2SAT 96
[2025-03-25 10:00] VITALS: PULSE 89; RESP 22; O2SAT 96
[2025-03-25 10:37] LABS: Troponin T High Sens 2 HR 12 ng/L (<=22)
[2025-03-25 11:20] VITALS: BP 142/89; PULSE 73; RESP 16; TEMP 36.6; O2SAT 97
== END 2025-03-25 11:24 | disposition home or self-care (01) ==
PROVIDERS: Emergency Provider Emergency Medicine; PCP Family Medicine; Visit Provider Emergency Medicine
DX: R07.9 Chest pain, unspecified (principal); E11.9 Type 2 diabetes mellitus without complications; I10 Essential (primary) hypertension; E78.5 Hyperlipidemia, unspecified; I25.10 Atherosclerotic heart disease of native coronary artery without angina pectoris; N40.0 Benign prostatic hyperplasia without lower urinary tract symptoms; Z79.82 Long term (current) use of aspirin; Z79.84 Long term (current) use of oral hypoglycemic drugs; Z79.02 Long term (current) use of antithrombotics/antiplatelets; Z79.899 Other long term (current) drug therapy; Z86.73 Personal history of transient ischemic attack (TIA), and cerebral infarction without residual deficits; Z95.5 Presence of coronary angioplasty implant and graft
CPT/HCPCS: 36415; 71046; 80048; 84484; 85025; 93005; 96360; 99284; A4216

== ENCOUNTER → 2025-03-25 | Outpatient (CLI) | payer MEDICARE, SELFPAY ==
[2024-04-19 08:46] VITALS: BMI 26.5
--- OUTSIDE RECORDS SUMMARY | 2025-03-25 05:50 | XMS RPT_ITS | CCD ---
Author Organization [facility] CliniSynm Care Team Providers Care Core Cutter And Reamer Name Role Phone Andrew Patel Unavailable Unavailable MD Kern Cyril S Unavailable Nidhi RN, Beulah A Unavailable Unavailable Nidhi RN, Beulah A Unavailable Unavailable Ray, RN, Griselda Gary Unavailable Unavailjuan Terrell RN, Beulah A Unavailable Unavailable RIAN Bell, Griselda Gary Unavailable Unavailjuan e COSMO, SELENE R Unavailable Unavailable COSMO, SELENE R Unavailable Unavailable Nidhi MODI, Beulah A Unavailable Unavailable RIAN Bell, Griselda Gary Unavailable UnavailAndrew Barone Unavailable Unavailable Nadir Grady MD Primary Care Provider [facility], Keti Unavailable [facility], Karen Unavailable Dr. Nadir Grady Primary Care Provider Dr. Sina Cabrales Attending Provider Dr. Jered Huff Referring Provider Dr. Nadir Grady Referring Provider Gavino METAL FLOORING INSTALLER, METAL FLOORING INSTALLER-Terence Kim Attending Provider Jermaine DENISE, CAMELIA Gary Attending Provider Ann Grajeda Attending Provider Unavailable Dr. Jd Kern Attending Provider Gavino METAL FLOORING INSTALLER, CHAITANYA-Terence Kim Other Provider Dr. Jd Kern Referring Provider Dr. Jd Kern Other Provider Yolanda DeanPa) Unavailable Dr. Nadir Grady Primary Care Provider Dr. Nadir Grady Referring Provider [phone] Dr. Jd Kern Attending Provider [phone] Dr. Jd Kern Referring Provider [phone] Roof METAL FLOORING INSTALLER, METAL FLOORING INSTALLER-Terence Kim Attending Provider Nadir Grady MD Primary Care Provider [facility], Keti Unavailable [facility], Karen Unavailable Yolanda Dean (Pa) Unavailable [phone] Dr. Nadir Grady Primary Care Provider Dr. Nadir Grady Referring Provider [phone] Ann Grajeda Attending Provider Unavailable Jermaine DENISE, PA Yolanda Gary Attending Provider Dr. Otf Merrill Attending Provider [phone] Nadir Grady MD Primary Care Provider [facility], Keti Unavailable [facility], Karen Unavailable Yolanda Dean (Pa) Unavailable [phone] Dr. Nadir Grady Primary Care Provider Dr. Nadir Grady Referring Provider [phone] [facility] METAL FLOORING INSTALLER, METAL FLOORING INSTALLER-Terence Kim Attending Provider Nadir Grady MD Primary Care Provider [facility], Keti Unavailable [facility], Karen Unavailable Yolanda Dean (Pa) Unavailable [phone] HANY JOHNSON Attending Unavaila THAI Williamson Referring Unavailable NADIR GRADY Primary Care Unavailable Yolanda Dean (Pa) Unavailable [phone] ) Dr. Nadir Grady Primary Care Provider Dr. Nadir Grady Referring Provider Liya, Dr. Miles Attending Provider [phone] Liya, Dr. Miles Referring Provider [phone] Liya, Dr. Miles Other Provider Joe TAVARES, METAL FLOORING INSTALLERRiccardoC Cheli Attending Provider Yolanda Jones Unavailable [facility], Briankati Unavailable Dr. Nadir Grady Primary Care Provider Liya, Dr. Miles Attending Provider [phone] Nicko Rabago Emergency Provider [phone] Anton, Dr. Ewing Admit Provider Anton, Dr. Ewing Attending Provider Anton, Dr. Ewing Other Provider Aris, Dr. Hui Other Provider Dr. Foster Mayberry Attending Provider Dr. Foster Mayberry Other Provider [phone] Aris, Dr. Hui Attending Provider [phone] Aris, Dr. Hui Attending Provider Anton, Dr. Ewing Referring Provider Dr. Nadir Grady Primary Care Provider Dr. Nicko Rabago Emergency Provider [phone] Anton, Dr. Ewing Admit Provider Anton, Dr. [...] Attending Provider Dr. Martina Cr Other Provider [facility], Keti Unavailable Yolanda Vargas PA-C Unavailable Nadir Grady MD Primary Care Provider [facility], Keti Unavailable Alayna DATAPOWER DEVELOPER.THERMITE BOMB LOADER, Franny Unavailable Martha Boston PA-C Unavailable Yolanda Dean [...] Provider Dr. Hany Paz MD Referring Provider Corrina TAVARES-CMolly Attending Provider Molly Houser Referring Provider [phone] Rm POTTER, Dr. Schmitz Primary Care Provider Rm POTTER, Dr. Schmitz Referring Provider Yolanda Jones Attending Provider [phone] Yolanda Jones Referring Provider [phone] Rm POTTER, Nadir A Primary Care Provider Rm POTTER, Dr. Schmitz Primary Care Provider Jignesh POTTER, Dr. Lawton Attending Provider Rm POTTER, Dr. Schmitz Primary Care Provider Rm POTTER, Dr. Schmitz Referring Provider Yolanda Jones Attending Provider [phone] Liya POTTER, Dr. Miles Attending Provider [phone] Alayna MURDOCK.THERMITE BOMB LOADER, Franny Unavailable Sixto Boston PA-Canne Unavailable Pablo POTTER, Dr. Lord Emergency Provider MARTHA BOSTON Referring Unavailable RM, NADIR A Primary Care Unavailable RM, NADIR A Primary Care Unavailable RM, NADIR A Attending Unavailable RM, NADIR A Primary [...] Attending Unavailable RM, NADIR A Referring Unavailable RM, NADIR A Primary Care Unavailable MOLLY HOUSER Attending Unavailable RM, NADIR A Primary Care Unavailable BOSTON, MARTHA Attending Unavailable RM, NADIR A Primary Care Unavailable BOSTON, MARTHA Referring Unavailable RM, NADIR A Primary Care Unavailable BOSTON, MARTHA Attending Unavailable RM, NADIR A Primary Care Unavailable BOSTON, MARTHA Referring Unavailable RM, NADIR A Primary Care Unavailable RM, NADIR A Primary Care Unavailable Rm POTTER, Dr. Schmitz Primary Care Provider Dr. Pop Shah MD Attending Provider Hany Paz Referring Unavailable Hany Paz Attending [facility] Rm, Nadir Referring Unavailable Jd Kern Attending Unavailable [facility] Unavailable Rm, Nadir Referring Unavailable Rm, Nadir Primary Care Unavailable Yolanda Jones Attending Unavail able Ez Hurst Referring Unavailable Ez Hurst Attending Unavailable Rm, Nadir Primary Care Unavailable Rm, Nadir Primary Care Unavailable Yolanda Jones Attending Unavail able Yolanda oJnes Referring Unavail able [facility] Unavailable Yolanda Jones Attending Unavail able Yolanda Jones Referring Unavail able Pop Shah Attending Unavailable [facility] Unavailable Yolanda Jones Attending Unavail able Yolanda Jones Referring Unavail able Rm Nadir Referring Unavailable [facility] Unavailable Yolanda Jones Attending Unavail able Rm, Nadir Referring Unavailable [facility] Unavailable Azul Cornell Attending Unavailable Jered Egan Attending Unavailable [facility] Unavailable Yolanda Jones Referring Unavail able Yolanda Jones Referring Unavail able LiyaJd mae Attending Unavailable [facility] Unavailable Yolanda Jones Referring Unavail able Yolanda Jones Attending Unavail able Molly Houser Referring Unavailable Molly Houser Attending Unavailable Rm, Nadir Primary Care Unavailable Hany Paz Referring Unavailable Hany Paz Attending Unavailable Rm, Nadir Primary Care Unavailable Juan Luis Rubio Attending Unavailable [facility] Unavailable Yolanda Jones Referring Unavail able Rm, Nadir Primary Care Unavailable Yolanda Jones Attending Unavail able Yolanda Jones Referring Unavail able [facility] Unavailable Yolanda Jones Attending Unavail able Liya, Jd Referring Unavailable Liya, [place] Attending Unavailable [facility] Primary Care Unavailable [facility] Primary Care Unavailable Yolanda Jones Attending Unavail able Yolanda Jones Referring Unavail able Rm, Nadir Referring Unavailable [facility] Unavailable Yolanda Jones Attending Unavail able Ez Hurst Attending Unavailable Yolanda Jones Referring Unavail able [facility] Unavailable Liya, [place] Attending Unavailable [facility] Unavailable Liya, Jd Referring Unavailable Liya, [place] Attending Unavailable [facility] Primary [facility] Referring Unavailable Yolanda Jones Attending Unavail able [facility] Primary [facility] Unavailable Allergies Allergy Classification Reported Allergen(s) Allergy Type Date of Onset Reaction(s) Facility Angiotensin 2 Receptor Blockers (ARB) (1 source) Losartan Drug Allergy 10-24-19 24 Angioedema [facility] Fludrocortisone (1 source) Fludrocortisone Drug Allergy 04-25-20 22 Angioedema [facility] Work Phone: (20 sources) PERFUMES; Translations: [PERFUMES] drug allergy 01-20-20 12 Other: See Comments [facility] Work Phone: (20 sources) Fludrocortisone; Translations: [FLUDROCORTISONE] Drug Allergy 01-05-20 22 [facility] Work Phone: (18 sources) perfume; Translations: [perfume] Propensity to adverse reactions 05-15-20 23 Other [facility] Comment on above: SINUS ISSUES (20 sources) Losartan; Translations: [LOSARTAN] Drug Allergy 10-24-19 24 Angioedema [facility] (8 sources) Iodine Drug Allergy 12-03-19 24 unknown [facility] Comment on above: liquid iodine used i n surgery (20 sources) ranolazine; Translations: [RANOLAZINE] Drug Allergy 09-06-19 25 Other: See Comments [facility] (2 sources) Isosorbide Drug Allergy 03-05-20 Near syncope, low bp, headaches [facility] (1 source) Fludrocortisone Drug Allergy 03-05-20 [facility] (1 source) Iodine Drug Allergy 03-05-20 [facility] (1 source) Isosorbide Drug Allergy 03-05-20 [facility] (1 source) Losartan Drug Allergy 03-05-20 [facility] Medications Current Medications Medication Drug Class(es) [...] on above: Take [address] [facility] twice daily. amitriptyline hydrochloride 50 mg oral [...] Discontinued Start: 01-08-2017 take 1 tablet by isac at bedtime AMITRIPTYLINE HCL 100 MG TABS 1 tablets by mouth at bedtime AMITRIPTYLINE HCL [id number] Jd Kern MD Start: 02-08-2015 End: 01-01-2021 [...] day for 3 doses then stop amLODIPine 5 mg oral tablet (20 sources) Dihydropyridine Calcium Channel Seun Start: take 1 tablet by mouth once daily Amlodipine 5 mg tablet Active 5 mg PO daily 90 March 09, 2025 12:00am Start: 12-18-2023 End: 03-09-2025 take 1 tablet by mouth once daily Amlodipine 10 mg tablet Discontinued 10 mg PO DAILY 90 December 16, 2024 9:54am March 09, 2025 1:46pm Start: 11-12-2021 End: 11-12-2021 take 1 tablet by mouth once daily Amlodipine 2.5 mg tablet Discontinued 2.5 mg PO DAILY 30 November 12, 2021 9:13am November 12, 2021 9:51am Start: 11-12-2021 End: 11-12-2021 take 2.5 mg by mouth once daily Amlodipine 5 mg tablet Discontinued 2.5 mg PO DAILY November 12, 2021 9:08am November 12, 2021 9:13am Start: 11-12-2021 End: 11-12-2021 take 2.5 mg by mouth once daily Amlodipine Discontinue d 2.5 MG PO DAILY November 12, 2021 9:08am November 12, 2021 [...] tablet Discontinued 5 mg PO DAILY 90 January 31, 2020 4:04pm March 04, 2020 11:36am Start: 01-31-2020 End: 03-04-2020 take 5 mg by mouth once daily Amlodipine Discontinued 5 MG PO DAILY January 31, 2020 4:04pm March 04, 2020 [...] Discontinued 5 MG PO TWICE A DAY 90 December 28, 2019 9:29am January 31, 2020 [...] by isac th once daily. Managed by [facility] Take 1 tablet by isac th once daily. amoxicillin 875 mg / clavulanate 125 mg oral tablet (4 sources) Penicillin-class Antibacterial Start: End: take 1 tablet by mouth twice daily [...] tablet by mouth once daily Aspirin 81 MG tablet Active 81 mg PO DAILY@08September 13, 2013 1:00am heart [facility] Comment on above: Take 1 tablet by isac th once daily. atorvastatin 80 mg oral tablet (20 sources) HMG-CoA Reductase Inhibitor Start: 04-19-20 take 1 tablet by mouth once daily for hyperlipidemia Atorvastatin 80 mg tablet Active 80 mg PO DAILY 90 July 26, 2024 9:11am for cholesterol Start: 10-30-2023 End: 04-19-2024 take 1 tablet by mouth once daily atorvastatin (LIPITOR) 40 mg tablet Indications: Mixed hyperlipidemia Take 1 tablet by mouth once daily. Managed by cardiology, Dr. Kern 10/30/2023 04/19/2024 Discontinued (Adjust Sig - [...] One tablet by mouth daily ATORVASTATIN CALCIUM [id number] Jd Kern MD Comment on above: Take [...] tablet Discontinued 75 mg PO DAILY 90 3 July 02, 2023 9:16am October 11, 2023 12:28pm Start: 01-08-2017 End: 12-06-2020 take 1 tablet by mouth once daily Clopidogrel 75 mg tablet Discontinued 75 mg PO DAILY 90 4 July 03, 2020 10:43am November 21, 2020 11:42am Comment on above: Take 1 tablet by isac th once daily. Managed by [facility] CPAP/BIPAP/OTHER (7 sources) Start: 12-16-2024 [...] 07-21-20 take 1 tablet by mouth once daily in the morning Empagliflozin (Jardiance) 10 mg tablet Active 10 mg PO EVERY MORNING July 28, 2024 1:00am Start: 05-22-2021 End: 07-11-2021 take 1 tablet [...] in the CT contrast administration guidelines link. metFORMIN hydrochloride 500 mg oral tablet (20 sources) Biguanide Start: 12-09-19 25 take 2 tablets by mouth twice daily Metformin 500 mg tablet Active 500 mg PO TWICE A DAY December 08, 2024 12:00am 2 tabs bid Start: 07-25-2020 End: 08-22-2025 Metformin 500 mg tablet exte nded release 24 hr Discontinued 1000 mg PO TWICE A DAY July 25, 2020 1:00am July 28, 2024 9:26am diabetes Start: 04-07-2020 End: 12-14-2023 take 2 tablets [...] mg PO TWICE DAILY WITH MEALS 0 May [...] twice daily METFORMIN HCL ER 500 MG [id number] Two tablets by mouth twice daily METFORMIN HCL [id number] Jd Kern MD Start: 01-07-2017 take 1 tablet by isac th once daily METFORMIN HCL ER 500 MG [id number] One tablet by mouth daily METFORMIN HCL [id number] Griselda Bell RN Comment on above: Take 2 tablets by mo uth twice daily. Take 1 tablet by isac th twice daily. Take 2 tablets by mo uth two times a day. methylPREDNISolone (1 source) Corticosteroid Start: 11-13-19 End: 11-19-19 23 methylPREDNISolone (MEDROL, WILLIS,) 4 mg Dose-Pack Indications: Rhus dermatitis Follow dosing instructions, take with food. 21 tablet 0 11/12/2022 11/18/2022 Active Comment on above: Follow dosing instru ctions, take with food. nitroglycerin 0.4 mg sublingual tablet (20 sources) Nitrate Vasodilator Start: 12-04-19 Nitroglycerin 0.4 mg tablet, sublingual Active 0.4 mg SL Q5M as needed for chest pain 30 0 December 04, 2023 12:00am do not exceed 3 doses per episode Start: 06-28-2020 End: 03-25-2022 nitroglycerin sublingual (NI TROSTAT) 0.4 mg SL tablet Indications: Chest pain, [...] for chest pain. omega-3 acid ethyl esters (fci) 1000 mg oral capsule (20 sources) Start: 01-06-2018 take 1 capsule by mouth once daily [place] 1-Ybs-Rof-Fish Oil (Fish Oil) 1,000 mg (120 mg-180 [...] 500 mg PO TWICE A DAY 60 February 11, 2022 12:00am February 13, 2022 3:43pm Comment on above: Take 1 tablet by isac th twice daily. Per cardio, Dr. Kern Take 1 tablet by isac th twice daily. Per cardio, Dr. Kern, not taking as of 06/28/2022 Take 1 tablet by isac th twice daily. Per [facility]: Dr. Kern Take 500 mg by mouth two times a day. Take 1 tablet by isac th two times a day. Per [facility] Super Beets (3 sources) Start: 02-22-2025 Super Beets Active PO February 22, 2025 12:00am ticagrelor 90 mg oral tablet (20 sources) Start: 11-15-2024 take 1 tablet by mouth twice daily Ticagrelor (Brilinta) 90 mg tablet Active 90 mg PO TWICE A DAY 60 November 15, 2024 10:06am anti platelet Start: 10-11-2023 End: 09-13-2024 take 1 tablet by mouth twice daily Ticagrelor (Brilinta) 90 mg tablet Discontinued 90 mg PO TWICE A DAY 60 October 30, 2023 10:45am September 13, 2024 2:09pm anti platelet Start: 11-21-2020 End: 12-23-2020 take 1 tablet by mouth twice daily Ticagrelor 90 MG tablet Discontinued 90 mg PO TWICE A DAY 60 0 November 21, 2020 12:00am December 22, 2020 12:00am December 23, 2020 12:17am Comment on above: Take 1 tablet by isac th two times a day. Per [facility] zinc acetate 50 mg oral capsule (12 sources) Start: 10-30-2023 take 1 capsule by [...] Comment on above: Take 2 tablets by [facility] once daily for 1 day, THEN [...] on above: Take [address] [facility] every 6 hours as needed. docusate sodium [...] mg tablet Discontinued 0.1 mg PO DAILY 30 December 20, 2021 12:00am December 31, 2021 1:18pm fluticasone propionate 0.05 mg/actuat metered dose nasal spray (20 sources) Corticosteroid Start: 10-23-2022 End: 10-09-2023 Fluticasone Propionate 50 mcg/actuation spray,suspension Discontinued 1 NMA INTRANASAL TWICE A DAY October 23, 2022 1:00am October 09, 2023 11:36pm administer into each nostril Start: 10-23-2022 End: 10-09-2023 take 1 spray(s) nasal route twice daily [...] Comment on above: Take 1 tablet by iasc th twice daily for 90 days. Take [...] mg oral tablet (20 sources) Sulfonylurea Start: 022 End: take 1 tablet by mouth once [...] mg/ml topical cream (1 source) Corticosteroid Start: 020 End: hydrocortisone 2.5 % cream Apply 1 [...] hr Discontinued 30 mg PO EVERY MORNING 31 07July 28, 2024 1:00am December 08, 2024 8:17am Start: 03-04-2020 End: 04-25-2020 take 1 tablet by mouth once daily, then take 1 tablet by mouth every twenty-four hours Isosorbide Mononitrate 30 mg tablet extended release 24 hr Discontinued 30 mg PO DAILY 31 07March 08, 2020 12:15pm April 25, 2020 2:16pm [...] 1 NMA RIGHT EYE 4 TIMES DAILY January 27, [...] above: Take 1 tablet by isac twice daily as needed (anxiety) for up to 30 days. Take by mouth twice daily as needed. Take 1 tablet by isac twice daily as needed for up to 30 days. losartan potassium 25 mg oral tablet (20 sources) Angiotensin 2 Receptor Seun Start: 10-11-19 End: 10-24-19 take 1 tablet by mouth once daily Losartan 25 mg Tablet Discontinued 25 mg PO DAILY 30 30 0 October 11, 2023 1:00am October 23, 2023 2:32pm Comment on above: Take 1 tablet by isac once daily. Per [facility] midodrine hydrochloride 10 mg oral [...] PO THREE TIMES A DAY 90 30 February 25, 2022 11:06am April 02, 2022 [...] tablet by isac th three times daily. Per [facility] nystatin [id number] unt/ml oral suspension (20 sources) Polyene Antifungal [...] cap (20 sources) Start: 09-06-19 End: 07-20-20 24 take 2 capsules by mouth once daily omega-3 fatty acids 1,000 mg cap Take 2 capsules by mouth once daily. 60 capsule 11 09/06/2021 07/20/2024 Discontinued Start: 09-06-2021 take 2 capsules by m outh once daily omega-3 fatty acids 1,000 mg cap Take 2 capsules by mouth once daily. 60 capsule 11 09/06/2021 Active Start: 03-15-2021 End: 01-06-2022 take 2 capsules by mouth once daily omega-3 fatty acids 1,000 mg cap Take 2 capsules by mouth once daily. 60 capsule 03/15/2021 09/06/2021 Discontinued Start: 06-28-2020 End: 02-15-2021 take 2 capsules by mouth once daily omega-3 fatty acids 1,000 mg cap Take 2 capsules by mouth once daily. 180 capsule 06/28/2020 02/15/2021 Discontinued Comment on above: Take 2 capsules by m out once daily. pantoprazole 40 mg delayed release [...] Comment on above: Take 1 tablet by iasc th once daily. polyethylene glycol 3350 [id number] mg / potassium chloride 2970 mg / sodium bicarbonate 6740 mg / sodium chloride 5860 mg / sodium sulfate 07238 mg powder for oral solution (1 source) [...] tablet Discontinued 20 mg PO DAILY 30 March 27, 2022 5:46pm April 01, 2022 5:00pm Start: 12-29-2021 take 40 mg by mouth once daily Prednisone Active 40 MG PO DAILY 8 December 29, 2021 8:55pm Comment on above: [...] 1 tablet by isac three times daily. pyridostigmine bromide 60 mg oral tablet (20 sources) Start: 3 End: 3 take 1 tablet by mouth once daily, then take 1 tablet by mouth twice daily Pyridostigmine [place] (Mestinon) 60 mg tablet Discontinued 60 mg [...] 1 tablet by isac th once daily. triamcinolone acetonide 1 mg/ml topical [...] tablet (5 sources) gamma-Aminobutyric Acid-ergic Agonist Start: 5 End: 5 take 1 tablet by mouth once for [...] Episodic Conditions associated with dizziness or vertigo (20 sources) Dizziness; Translations: [Dizziness and giddiness] Onset: 5 Episodic Coronary atherosclerosis and other heart disease (20 sources) Atherosclerotic heart disease of solomon coronary artery without angina pectoris; Translations: [Lipid-rich atherosclerosis of coronary artery] Onset: 7 02-07-2017 Chronic Comment on above: PCI-RODDY-Mid LAD w/ 2 .5 x 16 mm Synergy Stent and RODDY-Mid Ramus w/ 2.25 x 16 mm Synergy MR 01/20/2017; IDS-IPP-Sprqvr LCx w/ 2.25 x 08 mm Synergy MR Stent 05/10/2020; ROJ-DTD-Bppi LCx w/ 2.5 x 12 mm Synergy Stent 11/20/20; PCI-RODDY-Mid RCA w/ 3.0 x 9 mm Orsiro Stent and POBA- distal RCA 04/26/21; QOF-TIW-LDN-Prox LCx w/ 2.5 x 9 mm Orsiro [...] 2 01-07-2017 Chronic Fluid and electrolyte disorders (7 sources) Hyponatremia; Translations: [Hypo-osmolality and hyponatremia] Episodic Gastritis and duodenitis (1 source) Gastritis; Translations: [Other gastritis without bleeding] Episodic Headache; including migraine (20 sources) Migraine variants; Translations: [Other migraine, not intractable, without status migrainosus] Onset: 6 08-27-2021 Chronic Headache; including migraine (20 sources) Cervicogenic headache; Translations: [Cervicogenic headache] Onset: 6 07-09-2016 Episodic Headache; including migraine (1 source) Headache; including migraine; Translations: [New onset headache] Onset: 5 Hyperplasia of prostate (20 sources) Benign prostatic hyperplasia; Translations: [Benign prostatic hyperplasia without lower urinary tract symptoms] Onset: 7 10-03-2016 Chronic Immunizations and screening for infectious disease (20 sources) Procedure started; Translations: [Encounter for immunization] 11-12-2021 Episodic Intestinal infection (6 sources) Viral gastroenteritis due to Hall-like agent; Translations: [Acute gastroenteropathy due to Hall agent] 09-04-2024 Episodic Intracranial injury (17 sources) Concussion injury of body structure; Translations: [...] sources) Hypotension, unspecified; Translations: [Hypotension, unspecified] Onset: Episodic Other circulatory disease (5 sources) Orthostatic [...] disorders of bladder] Chronic Other gastrointestinal disorders (6 sources) Diarrhea; Translations: [Diarrhea, unspecified] 09-04-2024 Episodic [...] injuries and conditions due to external causes (13 sources) Angioedema; Translations: [Angioneurotic edema, initial encounter] [...] of skin] Episodic Other nervous system disorders (20 sources) Intermittent tremor; Translations: [Tremor, unspecified] 03-30-2022 [...] Episodic Other nutritional; endocrine; and metabolic disorders (17 sources) H/O: diabetes mellitus; Translations: [Personal history of other endocrine, nutritional and metabolic disease] 01-28-2023 Episodic Other nutritional; endocrine; and metabolic disorders (16 sources) H/O: metabolic disorder; Translations: [Personal history [...] imaging of other specified body structures] Onset: 5 09-06-2024 Chronic Other screening for suspected conditions (not mental disorders or infectious disease) (20 sources) Other specified abnormal findings of blood chemistry; Translations: [Other abnormal blood chemistry] Onset: 5 10-30-2018 Episodic Other skin disorders (20 sources) Lip swelling; Translations: [Localized swelling, mass and lump, head] 01-06-2022 Episodic Other skin disorders (1 source) Eruption; Translations: [Rash and other nonspecific skin eruption] 03-10-2023 Episodic Other upper respiratory infections (20 sources) Chronic sinusitis; Translations: [Chronic sinusitis, unspecified] 08-04-2015 Chronic Peripheral and visceral atherosclerosis (13 sources) Intermittent claudication; Translations: [Peripheral vascular disease, unspecified] Onset: 5 12-08-2024 Chronic Residual codes; unclassified (1 source) [...] behavior disorder; 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] Onset: Chronic Residual codes; unclassified (1 source) Other sleep disorders; Translations: [Non-restorative sleep] Onset: Chronic Residual codes; unclassified (1 source) Other hypersomnia; Translations: [Excessive daytime sleepiness] Onset: Chronic Residual codes; unclassified (1 source) Hypersomnia, unspecified; Translations: [Hypersomnolence] Onset: Chronic Residual codes; unclassified (1 source) Left [...] unspecified cervical region] Onset: 2 10-03-2016 Chronic Sprains and strains (20 sources) Strain of neck muscle; Translations: [Strain of muscle, fascia and tendon at neck level, initial encounter] Onset: 0 Resolved: 0 03-05-2020 Episodic Superficial injury; contusion (20 sources) Contusion [...] Unclassified (1 source) Unknown / UNK(Unknown) Onset: 7 Unclassified (3 sources) Long-term drug therapy; Translations: [Other detention (current) drug therapy] Onset: 7 01-07-2017 Past or Other Problems Problem Classification Problem Date Documented Date Episodic/Chronic Administrative/social admission (20 sources) Illiteracy; Translations: [Illiteracy and low-level literacy] Onset: 10-09-2020 10-09-2020 Episodic Deficiency and other anemia (20 sources) Iron deficiency anemia; Translations: [Iron deficiency anemia, unspecified] Onset: 08-21-2022 Episodic Diabetes mellitus without complication (20 sources) Hyperglycemia; Translations: [Hyperglycemia, unspecified] Onset: 06-26-2022 Episodic Other aftercare (9 sources) Other terminal block assembler (current) drug therapy; Translations: [Other detention (current) drug therapy] Onset: 01-07-2017 01-07-2017 Episodic Other aftercare (20 sources) Patient encounter status; Translations: [Other terminal block assembler (current) drug therapy] Onset: 08-16-2010 Resolved: 08-30-2010 [...] loss; Translations: [Weight loss] Onset: 07-20-2024 Episodic Residual codes; unclassified (20 sources) Other specified postprocedural states; Translations: [Personal history of surgery to other organs] Onset: 12-13-2021 Episodic Residual codes; unclassified (1 source) Insomnia, unspecified; Translations: [Sleep initiation dysfunction] Onset: 09-06-2024 Episodic Spondylosis; intervertebral disc disorders; other back problems (20 sources) Low back pain; Translations: [Lumbago] Onset: 10-16-2006 Resolved: 10-30-2018 08-27-2021 Episodic Unclassified (20 sources) Age more than 65 years; Translations: [Over 65 years old] 07-21-2021 Viral infection (20 sources) Disease caused by 2019-nCoV; Translations: [COVID-19] Onset: 06-01-2021 03-31-2022 Episodic Results Test Name Value Interpretation Reference Range Facility Jesse 03-08-2025 [facility] Telephone (SLEWST) PAULOMICHAEL Pagan ([id number]) 1955 M Date Time Provider Department 03/08/25 [facility]LLY [facility]ER During your visit today, we recorded the following information about you: Paula Donaldson LPN 03/08/2025 11:00 AM Signed [facility] takes Pt Medicare insurance. And will go to Pt home to set up Cpap for him. They will call Pt and set up a day and time. Will fax new/replacement device order to [facility]. TC to Pt and updated him and he understood. Paula Donaldson LPN Allergies As of Date: 03/08/2025 Noted Allergy Reaction FLORINEF (FLUDROCORTISONE) 04/25/2022 18 - Angioedema LOSARTAN 10/24/2023 18 - Angioedema PERFUMES 01/20/2012 14 - Other: See Comments Comments: sneezing RANEXA (RANOLAZINE) 09/06/2024 14 - Other: See Comments Comments: Headache, nausea and nose bleed Date Reviewed: 01/18/2025 Reviewed by: Luis E Agudleo LPN - Fully Assessed Prescriptions as of 03/08/2025 - metFORMIN ER (GLUCOPHAGE XR) 500 mg [...] Per Cardio: [facility] - Zinc Gluconate 50 [...] 1 capsule by mouth once daily. Per [facility] - ticagrelor (BRILINTA) 90 mg tablet Take 1 tablet by mouth two times a day. 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 Normal [facility] 12 Lead EKGon 03-05-2025 12 Lead EKG [facility] Cardiovascular Services [address] [place] [address] 12 Lead EKG 03/05/25 1120 MR#: [id number] Acct: [id number] Name: MICHAEL BATES Jr. Rep #: [id number] : 1955 70 From: Jd Kern MD Attending Dr: Status: DEP ER Ordering Dr: Pop Shah MD Date: 03/05/25 Location: ED Sex: M C Admitted: Test Reason : CP Blood Pressure : */* mmHG Vent. Rate : 76 BPM Atrial Rate : 76 BPM P-R Int : 118 ms QRS Dur : 84 ms QT Int : 382 ms P-R-T Axes : 17 28 10 degrees QTcB Int : 429 ms Normal sinus rhythm Normal ECG Confirmed by LIYA POTTER, JD ([id number]), editor book CODY YOON ([id number]) on 03/07/2025 10:54:58 AM Referred By: JUSTIN Confirmed By: JD KERN MD 03/07/25 1055 Date Jd Kern MD CC: Dr. Pop Shah MD; Dr. Nadir Grady MD Signed Normal [facility] Absolute lymphocyte countOrd ered By: Pop Shah on 03-05-2025 Lymphocytes Auto (Unsp spec) [#/Vol] 1.38 10*3/uL 0.83-4.51 [facility] Absolute neutrophil countOrd ered By: Pop Shah on 03-05-2025 Neutrophils (Bld) [#/Vol] 4.0 10*3/uL 2.0-7.7 [facility] Anion gap in Serum or Plasma Ordered By: Pop Shah on 03-05-2025 Anion gap [Moles/Vol] 17 mmol/L High 5-15 [facility] Automated lymphocyte count a s percentage of total leukocytesOrdered By: Pop Shah on 03-05-2025 Lymphocytes/100 WBC Auto (Unsp spec) 21.2 % 19-41 [facility] BUN/creatinine ratioOrdered By: Pop Shah on 03-05-2025 Urea nitrogen/Creatinine [Mass ratio] 22.5 mg/mg High 10- [facility] Basic Metabolic Profile (BMP )on 03-05-2025 BUN/CRE 22.5 RATIO High 10- [facility] Comment on above: Performed By: #### L 3410.9999, L505.5000 #### [facility] [address] [place], [address] Calcium [Mass/Vol] 9.1 mg/dL Normal 7.6-11.0 [facility] Comment on above: Performed By: #### L 3410.9999, L505.5000 #### [facility] [address] [place], [address] Chloride [Moles/Vol] 100 mmol/L Normal 98-108 [facility] Comment on above: Performed By: #### L 3410.9999, L505.5000 #### [facility] [address] [place], [address] CO2 [Moles/Vol] 19.9 mmol/L Low 21.0-32.0 [facility] Comment on above: Performed By: #### L 3410.9999, L505.5000 #### [facility] [address] [place], [address] Creatinine [Mass/Vol] 0.91 mg/dL Normal 0.70-1.20 [facility] Comment on above: Performed By: #### L 3410.9999, L505.5000 #### [facility] [address] [place], [address] ECRCL 75.76 ml/min Normal 50-250 [facility] Comment on above: Performed By: #### L 3410.9999, L505.5000 #### [facility] [address] [place], [address] GAP 17 High 5-15 [facility] Comment on above: Performed By: #### L 3410.9999, L505.5000 #### [facility] [address] [place], [address] GFR/1.73 sq M.predicted among non-blacks MDRD (S/P/Bld) [Vol rate/Area] 90 mL/min/{1.73_m2} Normal >60 [facility] Comment on above: Result Comment: mL/m in/1.73m2 CKD-EPI Creatinine Equation (2020) Performed By: #### L 3410.9999, L505.5000 #### [facility] [address] [place], [address] Glucose [Mass/Vol] 208 mg/dL High 70-99 [facility] Comment on above: Performed By: #### L 3410.9999, L505.5000 #### [facility] [address] [place], [address] Potassium [Moles/Vol] 4.3 mmol/L Normal 3.3-5.1 [facility] Comment on above: Performed By: #### L 3410.9999, L505.5000 #### [facility] [address] [place], [address] Sodium [Moles/Vol] 137 mmol/L Normal 133-145 [facility] Comment on above: Performed By: #### L 3410.9999, L505.5000 #### [facility] [address] [place], [address] Urea nitrogen [Mass/Vol] 21 mg/dL High 4-19 [facility] Comment on above: Performed By: #### L 3410.9999, L505.5000 #### [facility] [address] [place], [address] Basophil percentageOrdered B y: Pop Shah on 03-05-2025 Basophils/100 WBC (Bld) 0.8 % 0-1 [facility] CBC W/Diff, Automatedon -2024 Absolute Lymph 1.38 X10 3/uL Normal 0.83-4.51 [facility] Comment on above: Performed By: #### L 3410.9999, L505.5000 #### [facility] [address] [place], [address] Absolute Neut 4.0 X10 3/uL Normal 2.0-7.7 [facility] Comment on above: Performed By: #### L 3410.9999, L505.5000 #### [facility] [address] [place], [address] Basophils/100 WBC (Bld) 0.8 % Normal 0-1 [facility] Comment on above: Performed By: #### L 3410.9999, L505.5000 #### [facility] [address] [place], [address] Eosinophils/100 WBC (Bld) 6.5 % High 0-5 [facility] Comment on above: Performed By: #### L 3410.9999, L505.5000 #### [facility] [address] [place], [address] Erythrocyte distribution width (RBC) [Ratio] 12.7 % Normal 11.6-14.6 [facility] Comment on above: Performed By: #### L 3410.9999, L505.5000 #### [facility] [address] [place], [address] Hematocrit (Bld) [Volume fraction] 39.2 % Low 40-54 [facility] Comment on above: Performed By: #### L 3410.9999, L505.5000 #### [facility] [address] [place], [address] Hemoglobin (Bld) [Mass/Vol] 13.5 g/dL Normal 13.0-16. 5 [facility] Comment on above: Performed By: #### L 3410.9999, L505.5000 #### [facility] [address] [place], [address] IG% 0.500 Normal 0.0-0.9 [facility] Comment on above: Result Comment: IG% - Immature Granulocytes (promyelocytes, myelocytes and metamyelocytes) > 1% indicates that a LEFT SHIFT is Present. Performed By: #### L 3410.9999, L505.5000 #### [facility] [address] [place], [address] Lymphocytes/100 WBC (Bld) 21.2 % Normal 19-41 [facility] Comment on above: Performed By: #### L 3410.9999, L505.5000 #### [facility] [address] [place], [address] MCH (RBC) [Entitic mass] 30.4 pg Normal 27.0-32.0 [facility] Comment on above: Performed By: #### L 3410.9999, L505.5000 #### [facility] [address] [place], [address] MCHC (RBC) [Mass/Vol] 34.4 g/dL Normal 32-36 [facility] Comment on above: Performed By: #### L 3410.9999, L505.5000 #### [facility] [address] [place], [address] MCV (RBC) [Entitic vol] 88.3 fL Normal 80-94 [facility] Comment on above: Performed By: #### L 3410.9999, L505.5000 #### [facility] [address] [place], [address] Monocytes/100 WBC (Bld) 9.2 % Normal 0-10 [facility] Comment on above: Performed By: #### L 3410.9999, L505.5000 #### [facility] [address] [place], [address] Neutrophils/100 WBC (Bld) 61.8 % Normal 47-70 [facility] Comment on above: Performed By: #### L 3410.9999, L505.5000 #### [facility] [address] [place], [address] Nucleated RBC (Bld) [#/Vol] 0 10*3/uL Normal 0-5 [facility] Comment on above: Performed By: #### L 3410.9999, L505.5000 #### [facility] [address] [place], [address] Platelet mean volume (Bld) [Entitic vol] 9.9 fL Normal 6.2-12.0 [facility] Comment on above: Performed By: #### L 3410.9999, L505.5000 #### [facility] [address] [place], [address] Platelets (Bld) [#/Vol] 200 10*3/uL Normal 150-450 [facility] Comment on above: Performed By: #### L 3410.9999, L505.5000 #### [facility] [address] [place], [address] RBC (Bld) [#/Vol] 4.44 10*6/uL Low 4.6-6.2 [facility] Comment on above: Performed By: #### L 3410.9999, L505.5000 #### [facility] [address] [place], [address] RDW SD 40.7 fl Normal 35.1-43.9 [facility] Comment on above: Performed By: #### L 3410.9999, L505.5000 #### [facility] [address] [place], [place], [address] WBC (Bld) [#/Vol] 6.5 10*3/uL Normal 4.4-11.0 [facility] Comment on above: Performed By: #### L 3410.9999, L505.5000 #### [facility] [address] [place], [place], [address] Carbon dioxide, total [Moles /volume] in Central venous bloodOrdered By: Pop Shah on 03-05-2025 CO2 [Moles/Vol] 19.9 mmol/L Low 21.0-32.0 [facility] Chest 1 View (Portable)on Chest 1 View (Portable) [facility] Imaging Services [address] [place], [place] [address] Chest 1 View (Portable) MR#: [id number] Acct: [id number] Name: MICHAEL BATES Jr. Rep #: [id number] : 1955 M 70 From: Matt Mendenhall MD PCP: Dr. Nadir Grady MD Status: REG ER Study: Chest 1 View (Portable) Date of Exam: 03/05/25 Exam# [id number] Ordering Dr: Pop Shah MD EXAM: XR Chest, 1 View CLINICAL INDICATION: CHEST PAIN TECHNIQUE: Frontal view of the chest. COMPARISON: No relevant prior studies available. FINDINGS: LUNGS AND PLEURAL SPACES: Unremarkable. No consolidation. No pneumothorax. HEART: Unremarkable. No cardiomegaly. MEDIASTINUM: Unremarkable. Normal mediastinal contour. BONES/JOINTS: Unremarkable. No acute fracture. RAD/Chest 1 View (Portable) IMPRESSION: No acute cardiopulmonary process. Reading Location: [id number] CC: Dr. Pop Shah MD; Dr. Nadir Grady MD Storage Consultant: Signed Normal [facility] Chloride assayOrdered By: Gentry Shah on 03-05-2025 Chloride [Moles/Vol] 100 mmol/L 98-108 [facility] Emergency Department Summary on 03-05-2025 Emergency Department Summary [facility] Medical Records Department [address] [place] [address] Emergency Department Summary 03/05/25 MR#: [id number] Acct: [id number] Name: MICHAEL BATES Jr. Rep #: [id number] : 1955 70 From: Pop Shah MD [...] He has been compliant with his medications. [facility] Medical History Essential (primary) hypertension Hyperlipidemia Stroke/cerebrovascular accident Hypertension History of CAD (coronary artery disease) Hx of diabetes insipidus Tremor of both hands COVID-19 (06/2021) Bilateral carotid artery stenosis Syncope (10/2021) Atherosclerotic heart disease of [place] coronary artery without angina pectoris (10/10/23) Type 2 diabetes mellitus Sciatica DDD (degenerative disc disease) Elevated LFTs BPH (benign prostatic hyperplasia) Home Medications ???Medication ???Instructions ???Recorded ???Last Taken ???Type aspirin 81 mg tablet,delayed 81 mg PO DAILY@0800 heart health 0 09/13/13 02/11/22 History release omega 2-ymk-jvl-fish oil 1,000 mg 1,000 mg PO QDAY [...] pain Inte (more content not included)... Normal [facility] Eosinophil percentageOrdered By: Pop Shah on 03-05-2025 Eosinophils/100 WBC (Bld) 6.5 % High 0-5 [facility] Erythrocyte distribution wid th ratioOrdered By: Pop Shah on 03-05-2025 Erythrocyte distribution width (RBC) [Ratio] 12.7 % 11.6-14.6 [facility] Erythrocyte distribution wid th standard deviationOrdered By: Pop Shah on 03-05-2025 Erythrocyte distribution width (RBC) [Ratio] 40.7 fl 35.1-43.9 [facility] Glomerular filtration rate ( GFR) estimation/1.73 sq m using serum, plasma, or whole bOrdered By: Pop Shah on 03-05-2025 GFR/1.73 sq M.predicted among non-blacks MDRD (S/P/Bld) [Vol rate/Area] 90 mL/min/{1.73_m2} >60 [facility] Comment on above: mL/min/1.73m2 CKD-EP I Creatinine Equation (2020) Hematocrit Auto (Bld) [Volum e fraction]Ordered By: Pop Shah on 03-05-2025 Hematocrit (Bld) [Volume fraction] 39.2 % Low 40-54 [facility] Hemoglobin measurementOrdere d By: Pop Shah on 03-05-2025 Hemoglobin (Bld) [Mass/Vol] 13.5 g/dL 13.0-16. 5 [facility] Immature granulocytes/100 WB C Auto (Bld)Ordered By: Pop Shah on 03-05-2025 Immature granulocytes/100 WBC (Bld) 0.500 % 0.0-0.9 [facility] Comment on above: IG% - Immature Granu locytes (promyelocytes, myelocytes and metamyelocytes) > 1% indicates that a LEFT SHIFT is Present. L499.0042on 03-05-2025 Trop T High Sen 11 ng/L Normal <=22 [facility] Comment on above: Performed By: #### L 499.0042 #### [facility] [address] [place], [place], [address] Performed By: #### L 3410.9999, L505.5000 #### [facility] [address] [place], [address] L499.0043on 03-05-2025 Trop T High Sen Normal <=22 [facility] Comment on above: Result Comment: Canc elled via OM: Order cancelled - Patient discharged Performed By: #### L 499.0043 #### [facility] [address] [place], [place], [address] MCV (mean corpuscular volume ) determinationOrdered By: Pop Shah on 03-05-2025 MCV (RBC) [Entitic vol] 88.3 fL 80-94 [facility] Mean corpuscular hemoglobin (MCH) determinationOrdered By: Pop Shah on 03-05-2025 MCH (RBC) [Entitic mass] 30.4 pg 27.0-32.0 [facility] Mean corpuscular hemoglobin concentration (MCHC) determinationOrdered By: Pop Shah on 03-05-2025 MCHC (RBC) [Mass/Vol] 34.4 g/dL 32-36 [facility] Mean platelet volume determi nationOrdered By: Pop Shah on 03-05-2025 Platelet mean volume (Bld) [Entitic vol] 9.9 fL 6.2-12.0 [facility] Monocyte percentageOrdered B y: Pop Shah on 03-05-2025 Monocytes/100 WBC (Bld) 9.2 % 0-10 [facility] Neutrophil percentageOrdered By: Pop Shah on 03-05-2025 Neutrophils/100 WBC (Bld) 61.8 % 47-70 [facility] Nucleated red blood cell per centageOrdered By: Pop Shah on 03-05-2025 Nucleated RBC/100 WBC (Bld) [Ratio] 0 % 0-5 [facility] Platelet countOrdered By: Gentry Shah on 03-05-2025 Platelets (Bld) [#/Vol] 200 10*3/uL 150-450 [facility] Potassium measurement (mass/ volume)Ordered By: Pop Shah on 03-05-2025 Potassium (Unsp spec) [Mass/Vol] 4.3 mmol/L 3.3-5.1 [facility] RBC Auto (Bld) [#/Vol]Ordere d By: Pop Shah on 03-05-2025 RBC (Bld) [#/Vol] 4.44 10*6/uL Low 4.6-6.2 [facility] Serum creatinine measurement (mass/volume)Ordered By: Pop Shah on 03-05-2025 Creatinine [Mass/Vol] 0.91 mg/dL 0.70-1.20 [facility] Serum glucose measurement (m ass/volume)Ordered By: Pop Shah on 03-05-2025 Glucose [Mass/Vol] 208 mg/dL High 70-99 [facility] Serum or plasma calcium jaziel urement (mass/volume)Ordered By: Pop Shah on 03-05-2025 Calcium [Mass/Vol] 9.1 mg/dL 7.6-11.0 [facility] Serum or plasma urea nitroge n measurement (mass/volume)Ordered By: Pop Shah on 03-05-2025 Urea nitrogen [Mass/Vol] 21 mg/dL High 4-19 [facility] Sodium levelOrdered By: Justin Shah on 03-05-2025 Sodium [Moles/Vol] 137 mmol/L 133-145 [facility] Troponin T.cardiac [Mass/vol ume] in Serum or Plasma by High sensitivity methodOrdered By: Pop Shah on 03-05-2025 Troponin T.cardiac High sensitivity method [Mass/Vol] 11 ng/L <22 [facility] Troponin T.cardiac High sensitivity method [Mass/Vol] 11 ng/L <22 [facility] White blood cell (WBC) count Ordered By: Pop Shah on 03-05-2025 WBC (Bld) [#/Vol] 6.5 10*3/uL 4.4-11.0 [facility] MICHAEL [facility] ([id number]) 1955 M Date Time Provider Department 03/03/25 [...] Per Cardio: [facility] - Zinc Gluconate 50 mg tablet Take 50 mg by mouth once daily. - amLODIPine (NORVASC) 10 mg tablet Take 1 tablet by mouth once daily. Per [facility] - atorvastatin (LIPITOR) 80 mg tablet Take 1 tablet by mouth once daily. Managed by cardiology, Dr. Kern - omeprazole (PRILOSEC) 40 mg capsule Take 1 capsule by mouth once daily. Per [facility] - ticagrelor (BRILINTA) 90 mg [...] strain [S13.9XXA] 07/30/2010 08/30/2010 Other physical therapy [WCT2038] 08/16/2010 08/30/2010 Essential hypertension, benign [I10] 01/17/2012 [...] sugar in (more content not included)... Normal [facility] Cardiology Visit Reporton Cardiology Visit Report [facility] [place] [id number] [facility] [place] [address] OFFICE VISIT Date of Service: 02/22/25 MR#: [id number] Acct: [id number] Name: MICHAEL BATES Jr. Rep #: [id number] : 1955 Provider: Dr. Jd Kern MD Age/Sex: 70/M Location[facility] Status: Signed HPI HPI History of [...] negative for ischemia. He was admitted to [facility] on October 09, 2023 with chest discomfort. 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 Is patient in pain?: No Allergies fludrocortisone (From Florinef) Allergy (Severe, Verified 02/22/25 11:22) ANGIOEDEMA losartan Adverse Reaction (Severe, Verified 02/22/25 11:22) Angioedema iodine Adverse Reaction (Verified 02/22/25 11:22) unknown perfume Adverse Reaction (Verified 02/22/25 11:22) Other Medications ???Medication ???Instructions ???Recorded ???Confirmed ???Type aspirin 81 mg tablet,delayed 81 mg PO DAILY@0800 heart health 0 09/13/13 02/22/25 History release omega 3-tbf-liq-fish oil 1,000 mg 1,000 mg PO QDAY supplement 01/0602/22/25 History (120 mg-180 mg) capsule (Fish Oil) ferrous sulfate 325 mg (65 mg 325 mg PO BID supplement 06/28/22 02/22/25 History iron) tablet zinc acetate 50 mg (zinc) capsule 50 mg PO DAILY supplement 4 02/22/25 History (Galzin) nitroglycerin 0.4 mg sublingual 0.4 mg sublingual Q5M PRN chest (more content not included)... Normal [facility] ALBUMIN/CREATININE RATIO, UR INEon 01-18-2025 Albumin DL <= 20 mg/L (U) [Mass/Vol] mg/dL Normal [facility] Comment on above: Order Comment: Speci men Type: URINE SPECIMENOrdering Facility: [facility] Address: [address] [place] [address] Performed By: #### U ACR ####[facility] LABCLIA [id number] [place] [address] [place] Albumin/Creatinine (U) [Mass ratio] Normal [facility] Comment on above: Order Comment: Speci men Type: URINE SPECIMENOrdering Facility: [facility] Address: [address] [place] [address] Result Comment: Not calculated Adult Male and Female Nephrotic Criteria: <30 mg/g is considered normal to mildly increased 30-300 mg/g is considered moderately increased >300 mg/g is considered severely increased KDIGO. (2013). KDIGO 2012 Clinical Practice Guideline for the Evaluation and Management of Chronic Kidney Disease. Official Journal of the International Society of Nephrology, 3(1), 1-150. Performed By: #### U ACR ####[facility] LABCLIA [id number] [place] [address] [place] Creatinine (U) [Mass/Vol] 33.2 mg/dL Normal 20.0-300.0 [facility] Comment on above: Order Comment: Speci men Type: URINE SPECIMENOrdering Facility: [facility] Address: [address] [place] [address] Performed By: #### U ACR ####[facility] LABCLIA [id number] [address], [place] [address] [place] CBC W Auto Differential pane l (Bld)on 01-18-2025 Basophils (Bld) [#/Vol] 0.07 10*3/uL Normal <0.11 [facility] Comment on above: Order Comment: Speci men Type: BLOOD SPECIMENOrdering Facility: [facility] Address: [address] [place] [address] Performed By: #### 5 7021-8 ####[facility] LABCLIA [id number] [address] [place] Basophils/100 WBC (Bld) 1.1 % Normal C [facility] Comment on above: Order Comment: Speci men Type: BLOOD SPECIMENOrdering Facility: [facility] Address: [address] [place] [address] Performed By: #### 5 7021-8 ####[facility] LABCLIA [id number] [place] [id number] [place] Differential cell count method Nom (Bld) Auto Normal [facility] Comment on above: Order Comment: Speci men Type: BLOOD SPECIMENOrdering Facility: [facility] Address: [address] [place] [address] Performed By: #### 5 7021-8 ####[facility] LABCLIA [id number] [address] [id number] [address] [place] Eosinophils (Bld) [#/Vol] 0.30 10*3/uL Normal <0.46 [facility] Comment on above: Order Comment: Speci men Type: BLOOD SPECIMENOrdering Facility: [facility] Address: [address] [place] [address] Performed By: #### 5 7021-8 ####[facility] LABCLIA [id number] [facility] [place] [address] [place] Eosinophils/100 WBC (Bld) 4.9 % Normal [facility] Comment on above: Order Comment: Speci men Type: BLOOD SPECIMENOrdering Facility: [facility] Address: [address] [place] [address] Performed By: #### 5 7021-8 ####[facility] LABCLIA [id number] [place] [address] [place] Erythrocyte distribution width (RBC) [Ratio] 12.7 % Normal 11.5-15.0 [facility] Comment on above: Order Comment: Speci men Type: BLOOD SPECIMENOrdering Facility: [facility] Address: [address] [place] [address] Performed By: #### 5 7021-8 ####[facility] LABCLIA [id number] [place] [address] [place] Hematocrit (Bld) [Volume fraction] 42.3 % Normal 39.0-51.0 [facility] Comment on above: Order Comment: Speci men Type: BLOOD SPECIMENOrdering Facility: [facility] Address: [address] [place] [address] Performed By: #### 5 7021-8 ####[facility] LABCLIA [id number] [place] [id number] [place] Hemoglobin (Bld) [Mass/Vol] 14.0 g/dL Normal 13.0-17. 0 [facility] Comment on above: Order Comment: Speci men Type: BLOOD SPECIMENOrdering Facility: [facility] Address: [address] [place] [address] Performed By: #### 5 7021-8 ####[facility] LABCLIA [id number] [place] [address] [place] Immature granulocytes (Bld) [#/Vol] 10*3/uL Normal <0.10 [facility] Comment on above: Order Comment: Speci men Type: BLOOD SPECIMENOrdering Facility: [facility] Address: [address] [place] [address] Performed By: #### 5 7021-8 ####[facility] LABCLIA [id number] [place] [address] [place] Immature granulocytes/100 WBC (Bld) 0.3 % Normal [facility] Comment on above: Order Comment: Speci men Type: BLOOD SPECIMENOrdering Facility: [facility] Address: [address] [place] [address] Performed By: #### 5 7021-8 ####[facility] LABCLIA [id number] [place] [address] [place] Lymphocytes (Bld) [#/Vol] 1.42 10*3/uL Normal 1.00-4.0 0 [facility] Comment on above: Order Comment: Speci men Type: BLOOD SPECIMENOrdering Facility: [facility] Address: [address] [place] [address] Performed By: #### 5 7021-8 ####[facility] LABCLIA [id number] [place] [id number] [place] Lymphocytes/100 WBC (Bld) 23.1 % Normal [facility] Comment on above: Order Comment: Speci men Type: BLOOD SPECIMENOrdering Facility: [facility] Address: [address] [place] [address] Performed By: #### 5 7021-8 ####[facility] LABCLIA [id number] [place] [address] [place] MCH (RBC) [Entitic mass] 29.3 pg Normal 26.0-34.0 [facility] Comment on above: Order Comment: Speci men Type: BLOOD SPECIMENOrdering Facility: [facility] Address: [address] [place] [address] Performed By: #### 5 7021-8 ####[facility] LABCLIA [id number] [place] [address] [place] MCHC (RBC) [Mass/Vol] 33.1 g/dL Normal 30.5-36.0 [facility] Comment on above: Order Comment: Speci men Type: BLOOD SPECIMENOrdering Facility: [facility] Address: [address] [place] [address] Performed By: #### 5 7021-8 ####[facility] LABCLIA [id number] [place] [address] [place] MCV (RBC) [Entitic vol] 88.5 fL Normal 80.0-100.0 [facility] Comment on above: Order Comment: Speci men Type: BLOOD SPECIMENOrdering Facility: [facility] Address: [address] [place] [address] Performed By: #### 5 7021-8 ####[facility] LABIA [id number] [place] [address] [place] Monocytes (Bld) [#/Vol] 0.52 10*3/uL Normal <0.87 [facility] Comment on above: Order Comment: Speci men Type: BLOOD SPECIMENOrdering Facility: [facility] Address: [address] [place] [address] Performed By: #### 5 7021-8 ####[facility] LABCLIA [id number] [place] [address] [place] Monocytes/100 WBC (Bld) 8.4 % Normal C [facility] Comment on above: Order Comment: Speci men Type: BLOOD SPECIMENOrdering Facility: [facility] Address: [address] [place] [address] Performed By: #### 5 7021-8 ####[facility] LABCLIA [id number] [place] [id number] [place] Neutrophils (Bld) [#/Vol] 3.83 10*3/uL Normal 1.45-7.5 0 [facility] Comment on above: Order Comment: Speci men Type: BLOOD SPECIMENOrdering Facility: [facility] Address: [address] [place] [address] Performed By: #### 5 7021-8 ####[facility] LABCLIA [id number] [place] [address] [place] Neutrophils/100 WBC (Bld) 62.2 % Normal [facility] Comment on above: Order Comment: Speci men Type: BLOOD SPECIMENOrdering Facility: [facility] Address: [address] [place] [address] Performed By: #### 5 7021-8 ####[facility] LABCLIA [id number] [place] [address] [place] Nucleated RBC (Bld) [#/Vol] 10*3/uL Normal <0.01 [facility] Comment on above: Order Comment: Speci men Type: BLOOD SPECIMENOrdering Facility: [facility] Address: [address] [place] [address] Performed By: #### 5 7021-8 ####[facility] LABCLIA [id number] [place] [id number] [place] Nucleated RBC/100 WBC (Bld) [Ratio] 0.0 /100 WBC Normal [facility] Comment on above: Order Comment: Speci men Type: BLOOD SPECIMENOrdering Facility: [facility] Address: [address] [place] [address] Performed By: #### 5 7021-8 ####[facility] LABCLIA [id number] [place] [id number] [place] Platelet mean volume (Bld) [Entitic vol] 9.9 fL Normal 9.0-12.7 [facility] Comment on above: Order Comment: Speci men Type: BLOOD SPECIMENOrdering Facility: [facility] Address: [address] [place] [address] Performed By: #### 5 7021-8 ####[facility] LABIA [id number] [place] [address] [place] Platelets (Bld) [#/Vol] 261 10*3/uL Normal 150-400 [facility] Comment on above: Order Comment: Speci men Type: BLOOD SPECIMENOrdering Facility: [facility] Address: [address] [place] [address] Performed By: #### 5 7021-8 ####[facility] LAB[facility] [id number] [place] [address] [place] RBC (Bld) [#/Vol] 4.78 10*6/uL Normal 4.20-6.00 [facility] Comment on above: Order Comment: Speci men Type: BLOOD SPECIMENOrdering Facility: [facility] Address: [address] [place] [address] Performed By: #### 5 7021-8 ####[facility] LABIA [id number] [place] [id number] [place] WBC (Bld) [#/Vol] 6.16 10*3/uL Normal 3.70-11.00 [facility] Comment on above: Order Comment: Speci men Type: BLOOD SPECIMENOrdering Facility: [facility] Address: [address] [place] [address] Performed By: #### 5 7021-8 ####[facility] LABIA [id number] [place] [id number] [place] CNOVon 01-18-2025 CNOV Office Visit (FAMPWS ) MICHAEL BATES ([id number]) 1955 M Date Time Provider Department 01/18/25 8:40 AM [facility] today, we recorded the [...] Diabetes (HCC) Diabetic eye exam ([facility]) 03/19/2017 Last done: 10/01/2018 Elevated LFTs 08/05/2015 [...] Date 2D ECHO (EXEP) 01/16/2017 EF=60%, 1+ SC and TI CATARACT EXTRACTION HX Left 10/2019 [...] hr table (more content not included)... Normal [facility] Comprehensive metabolic 2000 panelon 01-18-2025 Albumin [Mass/Vol] 5.1 g/dL High 3.9-4.9 [facility] Comment on above: Order Comment: Speci men Type: BLOOD SPECIMENOrdering Facility: [facility] Address: [address] [place] [address] Performed By: #### 2 4323-8, LIPNF ####[facility] LABCLIA [id number] [place] [address] [place] ALP [Catalytic activity/Vol] 132 U/L High 38-113 [facility] Comment on above: Order Comment: Speci men Type: BLOOD SPECIMENOrdering Facility: [facility] Address: [address] [place] [address] Performed By: #### 2 4323-8, LIPNF ####[facility] LABCLIA [id number] [place] [address] [place] ALT [Catalytic activity/Vol] 27 U/L Normal 10-54 [facility] Comment on above: Order Comment: Speci men Type: BLOOD SPECIMENOrdering Facility: [facility] Address: [address] [place] [id number] Performed By: #### 2 4323-8, LIPNF ####[facility] LABCLIA [id number] [address] [place] [address] [place] Anion gap [Moles/Vol] 16 mmol/L High 8-15 [facility] Comment on above: Order Comment: Speci men Type: BLOOD SPECIMENOrdering Facility: [facility] Address: [address] [place] [address] Performed By: #### 2 4323-8, LIPNF ####[facility] LABCLIA [id number] [place] [id number] [place] AST [Catalytic activity/Vol] 26 U/L Normal 14-40 [facility] Comment on above: Order Comment: Speci men Type: BLOOD SPECIMENOrdering Facility: [facility] Address: [address] [place] [address] Performed By: #### 2 4323-8, LIPNF ####[facility] LABCLIA [id number] [place] [id number] [place] Bilirubin [Mass/Vol] 0.5 mg/dL Normal 0.2-1.3 [facility] Comment on above: Order Comment: Speci men Type: BLOOD SPECIMENOrdering Facility: [facility] Address: [address] [place], [place] [address] Performed By: #### 2 4323-8, LIPNF ####[facility] LABCLIA [id number] [place] [id number] [place] Calcium [Mass/Vol] 9.8 mg/dL Normal 8.5-10.2 [facility] Comment on above: Order Comment: Speci men Type: BLOOD SPECIMENOrdering Facility: [facility] Address: [address] [place], [place] [address] Performed By: #### 2 4323-8, LIPNF ####[facility] LABCLIA [id number] [address] [address] [place] Chloride [Moles/Vol] 101 mmol/L Normal 98-107 [facility] Comment on above: Order Comment: Speci men Type: BLOOD SPECIMENOrdering Facility: [facility] Address: [address] [place] [address] Performed By: #### 2 4323-8, LIPNF ####[facility] LABCLIA [id number] [place] [id number] [place] CO2 [Moles/Vol] 22 mmol/L Normal 22-30 [facility] Comment on above: Order Comment: Speci men Type: BLOOD SPECIMENOrdering Facility: [facility] Address: [address] [place] [address] Performed By: #### 2 4323-8, LIPNF ####[facility] LABCLIA [id number] [place] [address] [place] Creatinine [Mass/Vol] 0.86 mg/dL Normal 0.73-1.22 [facility] Comment on above: Order Comment: Speci men Type: BLOOD SPECIMENOrdering Facility: [facility] Address: [address] [place] [address] Performed By: #### 2 4323-8, LIPNF ####[facility] LABCLIA [id number] [place] [id number] [place] Creatinine and Glomerular filtration rate.predicted panel (S/P/Bld) 93 mL/min/1.73m??? Normal >=60 [facility] Comment on above: Order Comment: Speci men Type: BLOOD SPECIMENOrdering Facility: [facility] Address: [address] [place] [address] Result Comment: Abril mated Glomerular Filtration Rate [...] GFR. Performed By: #### 2 4323-8, LIPNF ####[facility] LABCLIA [id number] [facility]ITALTaste Guru [address] [address] [place] Glucose [Mass/Vol] 154 mg/dL High 74-99 [facility] Comment on above: Order Comment: Speci men Type: BLOOD SPECIMENOrdering Facility: [facility] Address: [address] [place] [address] Result Comment: The [place] Diabetes Association (ADA) provides guidance for cutoff [...] Standards of Medical Care in Diabetes 2016, [place] Diabetes Association. Diabetes Care. 2016.39(Suppl 1). Performed By: #### 2 4323-8, LIPNF ####[facility] LABCLIA [id number] [facility] [address] [address] [address] [place] Potassium [Moles/Vol] 4.6 mmol/L Normal 3.7-5.1 [facility] Comment on above: Order Comment: Speci men Type: BLOOD SPECIMENOrdering Facility: [facility] Address: [address] [place] [address] Performed By: #### 2 4323-8, LIPNF ####[facility] LABCLIA [id number] [place] [address], [place] [address] [place] Protein [Mass/Vol] 8.0 g/dL Normal 6.3-8.0 [facility] Comment on above: Order Comment: Speci men Type: BLOOD SPECIMENOrdering Facility: [facility] Address: [address] [place] [address] Performed By: #### 2 4323-8, LIPNF ####[facility] LABCLIA [id number] [address] [address] [place] Sodium [Moles/Vol] 139 mmol/L Normal 136-144 [facility] Comment on above: Order Comment: Speci men Type: BLOOD SPECIMENOrdering Facility: [facility] Address: [address] [place] [address] Performed By: #### 2 4323-8, LIPNF ####[facility] LABCLIA [id number] [place] [address] [place] Urea nitrogen [Mass/Vol] 18 mg/dL Normal 9-24 [facility] Comment on above: Order Comment: Speci men Type: BLOOD SPECIMENOrdering Facility: [facility] Address: [address] [place] [address] Performed By: #### 2 4323-8, LIPNF ####[facility] LABCLIA [id number] [place] [address] [place] HbA1c (Bld)on 01-18-2025 Average glucose Estimated from glycated hemoglobin (Bld) [Mass/Vol] 171 mg/dL Normal [facility] Comment on above: Order Comment: Speci men Type: BLOOD SPECIMENOrdering Facility: [facility] Address: [address] [place] [address] Result Comment: eAG: (Estimated average glucose) is a calculated value from HgbA1c and is vaccine customer representative of the average blood glucose level in the last 2-3 month period. Performed By: #### 5 5454-3 ####[facility] LABCLIA [id number] [address] [address] [place] HbA1c (Bld) [Mass fraction] 7.6 % High 4.3-5.6 [facility] Comment on above: Order Comment: Speci men Type: BLOOD SPECIMENOrdering Facility: [facility] Address: [address] [place] [address] Result Comment: Amer [place] Diabetes Association guidelines indicate that patients with HgbA1c in the range 5.7-6.4% are at increased risk for development of diabetes, and intervention by lifestyle modification may be beneficial. HgbA1c greater or equal to 6.5% is considered diagnostic of diabetes. Performed By: #### 5 5454-3 ####[facility] LABCLIA [id number] [place] [address] [place] LIPID PANEL, NONFASTINGon Cholesterol [Mass/Vol] 113 mg/dL Normal <200 [facility] Comment on above: Order Comment: Walter men Type: BLOOD SPECIMENOrdering Facility: [facility] Address: [address] [place] [address] Result Comment: <200 mg/dL, Desirable 200-239 mg/dL, Borderline high >239 mg/dL, High Performed By: #### 2 4323-8, LIPNF ####[facility] LABCLIA [id number] [place] [address] [place] HDL CHOLESTEROL, NF 42 mg/dL Normal >39 [facility] Comment on above: Order Comment: Speci men Type: BLOOD SPECIMENOrdering Facility: [facility] Address: [address] [place] [address] Result Comment: 40-5 9 mg/dL, Acceptable >59 mg/dL, High: Negative risk factor for coronary heart disease <40 mg/dL, Low: Positive risk factor for coronary heart disease Performed By: #### 2 4323-8, LIPNF ####[facility] LABCLIA [id number] [place] [id number] [facility] LDL CHOLESTEROL CALCULATED, NF 53 mg/dL Normal <100 [facility] Comment on above: Order Comment: Speci men Type: BLOOD SPECIMENOrdering Facility: [facility] Address: [address] [place], [place] [address] Result Comment: <100 mg/dL, Optimal 100-129 mg/dL, Near optimal/above optimal 130-159 mg/dL, Borderline high 160-189 mg/dL, High >189 mg/dL, Very high Secondary prevention optimal LDL Cholesterol levels are recommended to be <70 mg/dL LDL cholesterol is calculated using the Devine-NIH equation. Performed By: #### 2 4323-8, LIPNF ####[facility] LABCLIA [id number] [address] LDL/HDL RATIO, NF 1.26 mg/dL Normal <2.54 [facility] Comment on above: Order Comment: Walter sexton Type: BLOOD SPECIMENOrdering Facility: [facility] Address: [address] [place] [address] Result Comment: Refe rence: 1. National Cholesterol Education Program ATP III Guideline At-A-Glance Quick Desk Reference: National Heart, Lung, and Blood [place]. National Institutes of Health. 2001: NIH Publication No. 01-3305. 2. An International Atherosclerosis Society position paper: global recommendations for the management of dyslipidemia: executive summary, Atherosclerosis. 2014: 232(2):410-413. Performed By: #### 2 4323-8, LIPNF ####[facility] LABCLIA [id number] [address] NON HDL CHOL, NF 71 mg/dL Normal <130 [facility] Comment on above: Order Comment: Walter sexton Type: BLOOD SPECIMENOrdering Facility: [facility] Address: [address] [place] [address] Result Comment: <130 mg/dL, Optimal 130-159 mg/dL, Near optimal/above optimal 160-189 mg/dL, Borderline high 190-219 mg/dL, High >219 mg/dL, Very high Secondary prevention optimal non HDL Cholesterol levels are recommended to be <100 mg/dL Performed By: #### 2 4323-8, LIPNF ####[facility] LABCLIA [id number] [address] [address] [place] T CHOL/HDL RATIO NF 2.69 mg/dL Normal <5.10 [facility] Comment on above: Order Comment: Speci men Type: BLOOD SPECIMENOrdering Facility: [facility] Address: [address] [place] [address] Performed By: #### 2 4323-8, LIPNF ####[facility] LABCLIA [id number] [place] [address] [place] TRIGLYCERIDES, NF 95 mg/dL Normal <150 [facility] Comment on above: Order Comment: Speci men Type: BLOOD SPECIMENOrdering Facility: [facility] Address: [address] [place] [address] Result Comment: <150 mg/dL, Normal 150-199 mg/dL, Borderline high 200-499 mg/dL, High >499 mg/dL, Very high Performed By: #### 2 4323-8, LIPNF ####[facility] LABCLIA [id number] [place] [address] [place] VLDL CHOLESTEROL, NF 14 mg/dL Normal <30 [facility] Comment on above: Order Comment: Speci men Type: BLOOD SPECIMENOrdering Facility: [facility] Address: [address] [place] [address] Performed By: #### 2 4323-8, LIPNF ####[facility] LABCLIA [id number] [place] [address] [place] Urinalysis complete panel (U )on 01-18-2025 Bacteria LM.HPF (Urine sed) [#/Area] Negative Normal Negative [facility] Comment on above: Order Comment: Speci men Type: URINE SPECIMENOrdering Facility: [facility] Address: [address] [place] [address] Performed By: #### 2 4356-8 ####[facility] LABCLIA [id number] [place] [address] [place] Bilirubin Ql (U) Negative Normal Negative [facility] Comment on above: Order Comment: Speci men Type: URINE SPECIMENOrdering Facility: [facility] Address: [address] [place] [address] Performed By: #### 2 4356-8 ####[facility] LABCLIA [id number] [address] [place] [address] [place] Clarity (Unsp spec) Clear Normal Clear [facility] Comment on above: Order Comment: Speci men Type: URINE SPECIMENOrdering Facility: [facility] Address: [address] [place] [address] Performed By: #### 2 4356-8 ####[facility] LABCLIA [id number] [address], [facility] [place] Color (U) Yellow Normal Yellow [facility] Comment on above: Order Comment: Speci men Type: URINE SPECIMENOrdering Facility: [facility] Address: [address] [place] [address] Performed By: #### 2 4356-8 ####[facility] LABCLIA [id number] [address], [facility] [place] Epithelial cells LM.HPF (Urine sed) [#/Area] None Seen Normal [facility] Comment on above: Order Comment: Speci men Type: URINE SPECIMENOrdering Facility: [facility] Address: [address] [place] [address] Performed By: #### 2 4356-8 ####[facility] LABCLIA [id number] [address], [facility] [place] Glucose Test strip (U) [Mass/Vol] 3+ Abnormal Negative [facility] Comment on above: Order Comment: Speci men Type: URINE SPECIMENOrdering Facility: [facility] Address: [address] [place] [address] Performed By: #### 2 4356-8 ####[facility] LABCLIA [id number] [place] [id number] [place] Hemoglobin Ql (U) Negative Normal Negative [facility] Comment on above: Order Comment: Speci men Type: URINE SPECIMENOrdering Facility: [facility] Address: [address] [place] [address] Performed By: #### 2 4356-8 ####[facility] LABCLIA [id number] [place] [address] [place] Hyaline casts (Urine sed) [#/Area] 0 /[LPF] Normal 0 /LPF [facility] Comment on above: Order Comment: Speci men Type: URINE SPECIMENOrdering Facility: [facility] Address: [address] [place] [address] Performed By: #### 2 4356-8 ####[facility] [facility] LABCLIA [id number] [place] [address] [place] Ketones Ql (U) Negative Normal Negative [facility] Comment on above: Order Comment: Speci men Type: URINE SPECIMENOrdering Facility: [facility] Address: [address] [place] [address] Performed By: #### 2 4356-8 ####[facility] LABCLIA [id number] [place] [address] [place] Leukocyte esterase Test strip Ql (U) Negative Normal Negative [facility] Comment on above: Order Comment: Speci men Type: URINE SPECIMENOrdering Facility: [facility] Address: [address] [place] [address] Performed By: #### 2 4356-8 ####[facility] LABCLIA [id number] [place] [id number] [place] Nitrite Ql (U) Negative Normal Negative [facility] Comment on above: Order Comment: Speci men Type: URINE SPECIMENOrdering Facility: [facility] Address: [address] [place] [address] Performed By: #### 2 4356-8 ####[facility] LABCLIA [id number] [place] [address] [place] pH (U) 6.0 [pH] Normal <8.5 [facility] Comment on above: Order Comment: Speci men Type: URINE SPECIMENOrdering Facility: [facility] Address: [address] [place] [address] Performed By: #### 2 4356-8 ####[facility] LABIA [id number] [place] [address] [place] Protein (U) [Mass/Vol] Negative Normal Negative Cl [facility] Comment on above: Order Comment: Speci men Type: URINE SPECIMENOrdering Facility: [facility] Address: [address] [place] [address] Performed By: #### 2 4356-8 ####[facility] LABIA [id number] [place] [address] [place] RBC LM.HPF (Urine sed) [#/Area] 0-2 /HPF Normal 0-2 /HPF [facility] Comment on above: Order Comment: Speci men Type: URINE SPECIMENOrdering Facility: [facility] Address: [address] [place] [address] Performed By: #### 2 4356-8 ####[facility] LABIA [id number] [place] [address] [place] Specific gravity (U) [Rel density] 1.024 Normal 1.005-1.03 0 [facility] Comment on above: Order Comment: Speci men Type: URINE SPECIMENOrdering Facility: [facility] Address: [address] [place] [address] Performed By: #### 2 4356-8 ####[facility] LABIA [id number] [place] [id number] [place] Urobilinogen Ql (U) 0.2 EU/dL Normal 0.2-1.0 EU/dL [facility] Comment on above: Order Comment: Speci men Type: URINE SPECIMENOrdering Facility: [facility] Address: [address] [place] [address] Performed By: #### 2 4356-8 ####[facility] LABCLIA [id number] [place] [address] [place] WBC LM.HPF (Urine sed) [#/Area] 0-5 /HPF Normal 0-5 /HPF [facility] Comment on above: Order Comment: Speci men Type: URINE SPECIMENOrdering Facility: [facility] Address: [address] [place] [address] Performed By: #### 2 4356-8 ####[facility] LABIA [id number] [place] [address] [place] Abd Aortic/IVC Duplex scanon 12-23-2024 Abd Aortic/IVC Duplex scan [facility] [address] [place] [address] Abd Aortic/IVC Duplex scan 12/23/24 0803 MR#: [id number] Acct: [id number] Name: MICHAEL BATES JrMukesh Rep #: [id number] : 1955 69 From: Jered Egan MD [...] MD CC: Dr. Nadir Grady MD; CAMELIA Juilan Date Dictated: 12/23/24802 Date Transcribed: 12/23/241828 Storage Consultant: Signed Normal [facility] Abdominal aortic duplex scan reportOrdered By: Jered Egan on 12-23-2024 US.doppler Thoracic and abdominal aorta [facility] Services [address] [place] [address] Abd Aortic/IVC Duplex scan 12/23/24802 MR#: [id number] Acct: [id number] Name: PAULOMICHAEL Rep #:[id number] : 1955 69 From: Jered Escoto Attending Dr: CAMELIA Julian Status: REG CLI Ordering Dr: Yolanda Dean PA Date: 12/23/24 Location: [facility] Sex: M C Admitted: Reason For Study [...] Physician: Nadir Grady Performed By: Lucia Castaneda, TERRANCE 12/23/24 1829 Date _ Jered Egan MD CC: Dr. Nadir Grady MD; CAMELIA Julian ~ Date Dictated: 12/23/24802 Date Transcribed: 12/23/241828 Storage Consultant: Signed [facility] Work Phone: Arterial study reportOrdered By: Jered Egan on 12-23-2024 Noninvasive arteriosclerosis study report [facility] Cardi[facility] Services [address] [place] [address] Lower Ext Art Exam w/o Exercis 12/23/24 075 MR#: [id number] Acct: [id number] Name: MICHAEL BATES Jr. Rep #:[id number] : 1955 69 From: Jered Escoto Attending Dr: CAMELIA Julian Status: REG CLI Ordering Dr: Yolanda Dean PA Date: 12/23/24 Location: [facility] Sex: M C Admitted: Reason For Study [...] of the right leg normal atrest. Left ELIICA 1.37, normal. TBI and Doppler/PVR waveforms of the left leg normal at rest. Ordering Physician: Yolanda Dean Referring Physician: Nadir Grady Performed By: LUCIA CASTANEDA Rosa 12/23/241833 Date _ Jered Egan MD CC: Dr. Nadir Grady MD; CAMELIA Julian ~ Date Dictated: 12/23/24 075 Date Transcribed: 12/23/241833 Storage Consultant: Signed [facility] Work Phone: Carotid Duplex Ultrasoundon 12-23-2024 Carotid Duplex Ultrasound [facility] [address] [place] [address]. [place] [address] Carotid Duplex Ultrasound 12/23/24 0811 MR#: [id number] Acct: [id number] Name: PAULOMICHAEL Rep #: [id number] : 1955 69 From: Jered Egan MD Attending Dr: CMAELIA Julian Status: REG CLI Ordering Dr: Yolanda [...] the left vertebral artery. Procedure Carotid Duplex 80352. This is a Carotid Duplex examination using B-mode, color flow and specral Doppler. The exam was diagnostic. Exam performed in department. VL/Carotid Duplex Ultrasound Interpretation Summary Moderate (50-69%) stenosis right extracranial internal carotid. Moderate (50-69%) stenosis left extracranial internal carotid. Patent and antegrade vertebrals bilaterally. Ordering Physician: Yolanda Dean Referring Physician: Nadir Grady Performed By: Lucia Castaneda, RVT 12/23/24 183 Date Jered Egan MD CC: Dr. Nadir Grady MD; CAMELIA Julian Date Dictated: 12/23/24810 Date Transcribed: 12/23/241830 Storage Consultant: Signed Normal [facility] Duplex ultrasound of carotid artery reportOrdered By: Jered Egan on 12-23-2024 Study report [facility] Services [address] [place] [address] Carotid Duplex Ultrasound 12/23/24810 MR#: [id number] Acct: [id number] Name: MICHAEL BATES Jr. Rep #:[id number] : 1955 69 From: Jered Escoto Attending [...] the left vertebral artery. Procedure Carotid Duplex 26161. This is a Carotid Duplex examination using B-mode, color flow and specral Doppler. The exam was diagnostic. Exam performed in department. VL/Carotid Duplex Ultrasound Interpretation Summary Moderate (50-69%) stenosis right extracranial internal carotid. Moderate (50-69%) stenosis left extracranial internal carotid. Patent and antegrade vertebrals bilaterally. Ordering Physician: Yolanda Dean Referring Physician: Nadir Grady Performed By: Lucia Castaneda, [facility] 12/23/241830 Date _ Jered Egan MD CC: Dr. Nadir Grady MD; CAMELIA Julian ~ Date Dictated: 12/23/24810 Date Transcribed: 12/23/241830 Storage Consultant: Signed [facility] Work Phone: Lower Ext Art Exam w/o Exerc david 12-23-2024 Lower Ext Art Exam w/o Exercis [facility] Cardi[facility] Services [address] [place] [address] Lower Ext Art Exam w/o Exercis 12/23/24 0757 MR#: [id number] Acct: [id number] Name: MICHAEL BATES Jr. Rep #: [id number] : 1955 69 From: Jered Egan MD Attending Dr: CAMELIA Julian Status: REG CLI Ordering Dr: Yolanda Dean PA Date: 12/01 12/24 Location: [facility] Sex: M C Admitted: Reason For Study [...] Nadir Grady MD; CAMELIA Julian Date Dictated: 12/23/24 0757 Date Transcribed: 12/23/241833 Storage Consultant[facility] Office Visit (SLEWST ) MICHAEL BATES ([id number]) 1955 M Date Time Provider Department 12/13/24 10:00 AM MOLLY HOUSER During your visit today, we recorded the following information about you: Pulse Respiration Blood pressure Weight 74/minute 18/minute 129/80 78.8 kg Molly Houser APRN.CNP 12/16/2024 9:29 PM Signed [facility] Follow up/ Established patient [...] apnea. Per pt choice will do at [facility]. To include RBD montage. Rx for zolpidem [...] your preferred time and location. Molly Houser APRN.THERMITE BOMB LOADER Here for follow up for discussion of PSG that was obtained due to snoring, frequent nocturnal awakening, non-restorative sleep, dream enactment behavior, sleep onset insomnia, excessive daytime sleepiness, RLS 11/09/24 PSG at [facility]: AHI 26 (4% scoring) Mean O2 [...] 1 tabl (more content not included)... Normal [facility] 12 Lead EKG performed by [facility] on 12-08-2024 12 Lead EKG performed by BRISA Laurent [facility] [address] [place] [address] 12 Lead EKG performed by [facility] 12/08/24 0817 MR#: [id number] Acct: [id number] Name: MICHAEL BATES Jr. Rep #: [id number] : 1955 69 From: Yolanda Ye Attending Dr: CAMELIA Julian Status: DEP AMB Ordering Dr: Yolanda Dean Date: 05/26 Location: [facility] Sex: M C Admitted: BMS/12 Lead EKG performed by [facility] ECG Report Interpretation ----Sinus Rhythm WITHIN NORMAL LIMITSElectronically signed on 12/08/2024 at 11:28 by Jd [employer] Version 8610 12/08/24 1134 Date Yolanda DENISE CC: Dr. Nadir Grady MD Date Dictated: 12/08/24816 Date Transcribed: 12/08/24816 Storage Consultant: SHAHEEN Signed Normal [facility] Bilirubin directOrdered By: Yolanda Dean on 12-08-2024 Bilirubin.direct [Mass/Vol] 0.15 mg/dL 0.00-0.3 0 [facility] Bilirubin, totalOrdered By: Yolanda Dean on 12-08-2024 Bilirubin [Mass/Vol] 0.34 mg/dL 0.00-1.30 [facility] Calculated very low density lipoprotein (VLDL) cholesterol measurementOrdered By: Yolanda Dean on 12-08-2024 Calculated very low density lipoprotein (VLDL) cholesterol measurement 28 mg/dL 5-40 [facility] VLDL Cholesterol 28 mg/dL 5-40 [facility] Cardiology Visit Reporton Cardiology Visit Report [facility] [address] [place] [address]. [address] [place], [place] [address] OFFICE VISIT Date of Service: 12/08/24 MR#: [id number] Acct: [id number] Name: MICHAEL BATES Jr. Rep #: [id number] : 1955 Provider: CAMELIA Hurd Age/Sex: 69/M Location: [facility] Status: Signed HPI HPI History of [...] negative for ischemia. He was admitted to [facility] on October 09, 2023 with chest discomfort. 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 Is patient in pain?: No Allergies fludrocortisone (From Florinef) Allergy (Severe, Verified 12/08/24 08:15) ANGIOEDEMA losartan Adverse Reaction (Severe, Verified 12/08/24 08:15) Angioedema iodine Adverse Reaction (Verified 12/08/24 08:15) unknown perfume Adverse Reaction (Verified 12/08/24 08:15) Other Medications ???Medication ???Instructions ???Recorded ???Confirmed ???Type aspirin 81 mg tablet,delayed 81 mg PO DAILY@0800 heart health 0 09/13/13 12/08/24 History release omega 4-kyx-dty-fish oil 1,000 mg 1,000 mg PO QDAY supplement 01/0612/08/24 History (120 mg-1 (more content not included)... Normal [facility] LDL calc ser/plasOrdered By: Yolanda Dean on 12-08-2024 Cholesterol in LDL [Mass/Vol] 40 mg/dL [facility] Comment on above: Njtvifuykj=468-162 m g/dL & Higher Feyq=241 mg/dL or greater LDL Cholesterol, Calculated 40 mg/dL [facility] Comment on above: Pxeyuuczeh=364-940 m g/dL & Higher Dhta=252 mg/dL or greater Laboratory - Chemistry and C hemistry - challengeOrdered By: Yolanda Dean on 12-08-2024 AST [Catalytic activity/Vol] 23 U/L <38 [facility] Lipid Profileon 12-08-2024 CHOL:HDL 2.58 Normal [facility] Comment on above: Performed By: #### L 500.3400, L500.4100 #### [facility] [address] [facility] [place], [address] Cholesterol [Mass/Vol] 111 mg/dL Normal <=200 [facility] Comment on above: Result Comment: Chol esterol level, Desirable <200 mg/dL Borderline high cholesterol 200-239 mg/dL High cholesterol >=240 mg/dL Recommendations of the NCEP Adult Treatment Panel for the following risk-cutoff thresholds for the [place] population. Performed By: #### L 500.3400, L500.4100 #### [facility] [address] [place], [address] Cholesterol in HDL [Mass/Vol] 43 mg/dL Normal [facility] Comment on above: Result Comment: Ariella onal Cholesterol Education Program (NCEP) guidelines: <40 mg/dL: Low HDL-cholesterol (major risk factor for CHD) >= 60 mg/dL: High HDL-cholesterol (negative risk factor for CHD) HDL-cholesterol is affected by a number of factors, e.g. smoking, exercise, hormones, sex and age. Performed By: #### L 500.3400, L500.4100 #### [facility] [address] [place], [address] Cholesterol in LDL [Mass/Vol] 40 mg/dL Normal [facility] Comment on above: Result Comment: Bord jndktf=596-168 mg/dL Higher Xcle=823 mg/dL or greater Performed By: #### L 500.3400, L500.4100 #### [facility] [address] [place], [address] Cholesterol in VLDL [Mass/Vol] 28 mg/dL Normal 5-40 [facility] Comment on above: Performed By: #### L 500.3400, L500.4100 #### [facility] [address] [place], [address] Triglyceride [Mass/Vol] 142 mg/dL Normal [facility] Comment on above: Result Comment: The drugs N-Acetylcysteine and Metamizole may falsely depress this assay. Normal range: <150 mg/dL Borderline High: 150-199 mg/dL High: 200-499 mg/dL Very High: >500 mg/dL Performed By: #### L 500.3400, L500.4100 #### [facility] [address] [place], [address] Liver Profileon 12-08-2024 Albumin [Mass/Vol] 4.7 g/dL Normal 3.4-4.8 [facility] Comment on above: Performed By: #### L 500.3400, L500.4100 #### [facility] [address] [place], [address] ALK PHOS 133 U/L High 40-129 [facility] Comment on above: Performed By: #### L 500.3400, L500.4100 #### [facility] [address] [place], [address] ALT [Catalytic activity/Vol] 27 U/L Normal <=46 [facility] Comment on above: Performed By: #### L 500.3400, L500.4100 #### [facility] [address] [place], [address] AST [Catalytic activity/Vol] 23 U/L Normal <=37 [facility] Comment on above: Performed By: #### L 500.3400, L500.4100 #### [facility] [address] [place], [address] Bilirubin [Mass/Vol] 0.34 mg/dL Normal 0.00-1.30 [facility] Comment on above: Performed By: #### L 500.3400, L500.4100 #### [facility] [address] [place], [address] Bilirubin.direct [Mass/Vol] 0.15 mg/dL Normal 0.00-0.3 0 [facility] Comment on above: Performed By: #### L 500.3400, L500.4100 #### [facility] [address] [place], [address] Globulin (S) [Mass/Vol] 2.9 g/dL Normal 2.2-4.2 [facility] Comment on above: Performed By: #### L 500.3400, L500.4100 #### [facility] [address] [place], [address] T PROT 7.5 g/dL Normal 5.9-8.4 [facility] Comment on above: Performed By: #### L 500.3400, L500.4100 #### [facility] [address] [place], [address] Screening total cholesterol/ high density lipoprotein (HDL) cholesterol ratioOrdered By: Yolanda Dean on 12-08-2024 Cholesterol.total/Cholestero l in HDL [Mass ratio] 2.58 {ratio} [facility] Serum globulin measurementOr dered By: Yolanda Dean on 12-08-2024 Globulin (S) [Mass/Vol] 2.9 g/dL 2.2-4.2 [facility] Serum or plasma alanine toscano otransferase (ALT) measurementOrdered By: Yolanda Dean on 12-08-2024 ALT [Catalytic activity/Vol] 27 U/L <47 [facility] Serum or plasma albumin jaziel urement (mass/volume)Ordered By: Yolanda Dean on 12-08-2024 Albumin [Mass/Vol] 4.7 g/dL 3.4-4.8 [facility] Serum or plasma alkaline geronimo sphatase measurementOrdered By: Yolanda Dean on 12-08-2024 ALP [Catalytic activity/Vol] 133 U/L High 40-129 [facility] Serum or plasma cholesterol in HDL measurement (mass/volume)Ordered By: Yolanda Dean on 12-08-2024 Cholesterol in HDL [Mass/Vol] 43 mg/dL >40 [facility] Comment on above: National Cholesterol Education Program (NCEP) guidelines:<40 mg/dL: Low HDL-cholesterol (major risk factor for CHD)>= 60 mg/dL: High HDL-cholesterol (negative risk factor for CHD)HDL-cholesterol is affected by a number of factors, e.g. smoking, exercise, hormones, sex and age. Serum or plasma cholesterol measurement (mass/volume)Ordered By: Yolanda Dean on 12-08-2024 Cholesterol [Mass/Vol] 111 mg/dL <[address] [facility] Comment on above: Cholesterol level, D esirable <200 mg/dLBorderline high cholesterol 200-239 mg/dLHigh cholesterol >=240 mg/dLRecommendations of the NCEP Adult Treatment Panel for the following risk-cutoff thresholds for the [place] population. Total proteinOrdered By: Gustavo Dean on 12-08-2024 Protein [Mass/Vol] 7.5 g/dL 5.9-8.4 [facility] Triglycerides measurementOrd ered By: Yolanda Dean on 12-08-2024 Triglyceride [Mass/Vol] 142 mg/dL <199 [facility] Comment on above: The drugs N-Acetylcy steine and Metamizole may falsely depress this assay. Normal range: <150 mg/dLBorderline High: 150-199 mg/dLHigh: 200-499 mg/dLVery High: >500 mg/dL Jesse 11-15-2024 [facility] Telephone (SLEWST) ADIAMICHAEL BROCK ([id number]) 1955 M Date Time Provider Department 11/15/24 MOLLY HOUSER During your visit today, we recorded the following information about you: Karin Langston LPN 11/15/2024 11:05 AM Signed Please see attached PSG results. Scan on 11/15/2024 9:56 AM by Provider, External, PA-C: [facility] PSG 11/09/24 KAITLYN Hall Rebecca, APRN.CNP 11/16/2024 6:01 PM Signed Will discuss at his upcoming follow up appointment. 11/09/24 PSG at [facility]: AHI 26 (4% scoring) Mean O2 [...] tablet by mouth once daily. Per Cardio: [facility] - empagliflozin (JARDIANCE) 10 [...] 1 tablet by mouth once daily. Per [facility] - atorvastatin (LIPITOR) 80 mg [...] by mouth two times a day. Per [facility] - docosahexaenoic acid/epa (FISH OIL [...] strain [S13.9XXA] 07/30/2010 08/30/2010 Other physical therapy [UVA7051] 08/16/2010 08/30/2010 Essential hypertension, benign [I10] 01/17/2012 [...] coronary stent (more content not included)... Normal [facility] Spine Cervical (Routine)on 0 10-23-2024 Spine Cervical (Routine) [facility] Imaging Services [address] [place] [address] Spine Cervical (Routine) MR#: [id number] Acct: [id number] Name: MICHAEL BATES Jr. Rep #: [id number] : 1955 M 69 From: King Castillo PCP: Dr. Nadir Grady MD Status: REG CLI Study: Spine Cervical (Routine) Date of Exam: Exam# [id number] Ordering Dr: Hany Paz MD PROCEDURE: MRI [...] left foraminal narrowing at C4-5. Reading Location: [facility] CC: Dr. Nadir Grady MD; Dr. Hany Paz MD Storage Consultant: Signed [facility] CNOVon 10-22-2024 [facility] Office Visit (SLEWST ) MICHAEL BATES ([id number]) 1955 M Date Time Provider Department 10/22/24 1:00 PM MOLLY HOUSER During your visit today, we recorded the following information about you: Pulse Respiration Blood pressure Weight 72/minute 18/minute 131/76 79.4 kg Molly Houser APRN.THERMITE BOMB LOADER 10/22/2024 1:57 PM Signed [facility] New Patient Evaluation PATIENT NAME: Michael Bates DATE OF SERVICE: October 22, 2024 CONSULTING PROVIDER: Nadir Grady [address] [facility] [address] REASON FOR CONSULT: Nadir Grady sends the patient for an opinion about hypersomnolence, snores, sleep initiation dysfunction. My findings and recommendations will be transmitted electronically via shared medical record to the consulting provider. HPI: Michael Bates is a 69 year old male. Sleep-related history: he describes his sleep as "not the greatest", that has been the case for years, [...] Chronic sinusitis Claudication (HCC) 06/04/2017 PVR's normal. Coron (more content not included)... Normal [facility] CNOVon 10-07-2024 [facility] Office Visit (FAMPWS ) MICHAEL BATES ([id number]) 1955 M Date Time Provider Department 10/07/24 9:20 AM [facility] During your visit today, we recorded the [...] Date 2D ECHO (EXEP) 01/16/2017 EF=60%, 1+ SC and TI CATARACT EXTRACTION HX Left 10/2019 [...] to V (more content not included)... [facility] ([id number]) 1955 M Date Time Provider Department 10/07/24 [facility] During your visit today, we recorded the [...] tablet by mouth once daily. Per Cardio: [facility] - empagliflozin (JARDIANCE) 10 [...] 1 capsule by mouth once daily. Per [facility] - carvedilol (COREG) 3.125 mg tablet Take 1 tablet by mouth two times a day. Per [facility] - ticagrelor (BRILINTA) 90 mg tablet Take 1 tablet by mouth two times a day. Per [facility] - docosahexaenoic acid/epa (FISH OIL [...] strain [S13.9XXA] 07/30/2010 08/30/2010 Other physical therapy [[id number]] 08/16/2010 08/30/2010 Essential hypertension, benign [I10] 01/17/2012 DDD (degenerative disc disease), cervical [M50.*01/20/2012 Cervical spondylosis [M47.812] 01/20/2012 Chronic sinusitis [J32.9] Hyperlipidemia [E78.5] 08/04/2015 Mixed hyperlipidemia [E78.2] 08/04/2015 Lumbar radiculopathy [M54.16] Chronic post-traumatic headache [G44.329] 08/04/2015 Bilateral occipital neuralgia [M54.81] 08/04/2015 Seborrheic dermatitis [L21.9] 08/04/2015 Elevated LFTs [R79.89 (more content not included)... Normal [facility] CREATININE BLDOrdered By: Lois Rojo on 10-07-2024 Creatinine [Mass/Vol] 0.73 mg/dL 0.73 - 1.22 mg/dL [facility] GFR/1.73 sq M.predicted among non-blacks MDRD (S/P/Bld) [Vol rate/Area] 97 mL/min/{1.73_m2} - PINF [facility] Comment on above: Estimated Glomerular Filtration Rate [...] Interpretation and review of laboratory results Normal [facility] CREATININE BLDon 10-07-2024 Creatinine [Mass/Vol] 0.73 mg/dL Normal 0.73-1.22 [facility] Comment on above: Order Comment: Speci men Type: BLOOD SPECIMENOrdering Facility: [facility] Address: [address] [place] [address] Performed By: #### C RET1 ####[facility] [id number] [address] [facility] Creatinine and Glomerular filtration rate.predicted panel (S/P/Bld) 97 mL/min/1.73m??? Normal >=60 [facility] Comment on above: Order Comment: Speci men Type: BLOOD SPECIMENOrdering Facility: [facility] Address: [address] [place] [address] Result Comment: Abril mated Glomerular Filtration Rate [...] actual GFR. Performed By: #### C RET1 ####[facility] [id number] [address] [place] [facility] MR Brain WO and W contrast I Mohsen 10-07-2024 IMPRESSION: No acute intracranial abnormality including no evidence of an acute parenchymal infarct. No mass or pathologic enhancement. Storage Consultant: FAWN Transcribe Date/Time: Oct 07 2024 11:54A Dictated by : WILLIAM LUNA DO This examination was interpreted and the report reviewed and electronically signed by: WILLIAM LUNA DO on Oct 07 2024 12:06PM [facility] DIVISION OF RADIOLOGY * * *Final Report* * * DATE OF EXAM: Oct 07 2024 11:35AM [facility] 0295 - MRI BRAIN WO/W IVCON / [...] tissues are unremarkable. DIVISION OF RADIOLOGY Provider, [facility] Brittany [facility] - 10/07/2024 * * *Final Report* * * DATE OF EXAM: Oct 07 2024 11:35AM [facility] 0295 - MRI BRAIN WO/W IVCON / [...] parenchymal infarct. No mass or pathologic enhancement. [facility] Transcribe Date/Time: Oct 07 2024 11:54A Dictated by : WILLIAM LUNA DO This examination was interpreted and the report reviewed and electronically signed by: WILLIAM LUNA DO on Oct 07 2024 12:06PM EST [facility] Radiology Study observation (narrative) [facility] MR Brain WO and W contrast I VOrdered By: Ccf Provider on 10-07-2024 [facility] MRI BRAIN WO/W IVCONon 10-07 MRI BRAIN WO/W IVCON * * *Final Report* * * DATE OF EXAM: Oct 07 2024 11:35AM [facility] 0295 - MRI BRAIN WO/W IVCON / [...] parenchymal infarct. No mass or pathologic enhancement. Storage Consultant: FAWN Transcribe Date/Time: Oct 07 2024 11:54A Dictated by : WILLIAM LUNA DO This examination was interpreted and the report reviewed and electronically signed by: WILLIAM LUNA DO on Oct 07 2024 12:06PM EST [id number] Normal [facility] L3410.9999on 09-24-2024 [facility] Comment on above: Order Comment: [id number] 8 TRAMADOL Result Comment: TEST RESULTS LIMITS Tramadol Tramadol Screen, Urine Negative ng/mL Dtxice=042 TESTING PERFORMED AT [facility]. ORIGINAL REPORT ON FILE IN LAB CONTAINS ADDITIONAL TEST SITE INFORMATION. Performed By: #### L 3410.9999 #### [facility] [address] [place], [address] L3410.9999on 09-23-2024 [facility]. COMMENT Normal . [facility] Comment on above: Order Comment: 80841 3 URINE TOX Result Comment: Test Ordered: [id number] 6+Oxycodone-Bund Amphetamines, Urine Negative ng/mL UI Reference Range: Rprrsf=4959 Amphetamine test includes Amphetamine and Methamphetamine. Barbiturate Negative ng/mL UI Reference Range: Idtwnp=844 Benzodiazepines Negative ng/mL UI Reference Range: Jxixyg=958 Cannabinoids Negative ng/mL UI Reference Range: Cutoff=20 Cocaine (Metabolite) Negative ng/mL UI Reference Range: Gjmlwi=186 Opiates Negative ng/mL UI Reference Range: Tugzix=461 Opiate test includes Codeine, Morphine, Hydromorphone, Hydrocodone. Oxycodone/Oxymorphone, Urine Negative ng/mL UI Reference Range: Pvxpqd=133 Test includes Oxycodone and Oxymorphone Effective November 29, 2024, this test will be discontinued. Please contact your [facility] vaccine customer representative for suggested replacement test options. Performed at: [facility] [address] [facility], [place], [place] [id number] Employee Relations Manager: Keith Peña PhD, Phone: [phone] Performed at: [address] [id number] Employee Relations Manager: Grant Antonio PhD, Phone: [phone] Performed By: #### L 3410.9999, L505.5000 #### [facility] [address] [place], [address] Cerv Spine 2 or 3 Viewson Cerv Spine 2 or 3 Views [facility] Imaging Services [address] [address] Cerv Spine 2 or 3 Views MR#: [id number] Acct: [id number] Name: MICHAEL BATES Jr. Rep #: [id number] : 1955 M 69 From: Brain oconnell DO PCP: Dr. Nadir Grady MD Status: REG CLI Study: Cerv Spine 2 or 3 Views Date of Exam: 09/20/24 Exam# [id number] Ordering Dr: Hany Paz MD [id number] EXAM: XR CERVICAL SPINE, 4 OR 5 [...] Nadir Grady MD; Dr. Hany Paz MD Storage Consultant: Signed Normal [facility] Methadone, urineOrdered By: Hany Paz on 09-20-2024 Urine Methadone Screen Negative < 300 ng/mL [facility] No Panel InformationOrdered By: Hany Paz on 09-20-2024 Miscellaneous Test See comment [facility] Comment on above: TEST RESULTS LIMITST ramadol Tramadol Screen, Urine Negative ng/mL Fmdhsk=173 TESTING PERFORMED AT [facility]. ORIGINAL REPORT ON FILE IN LAB CONTAINS ADDITIONAL TEST SITE INFORMATION. Urine Drug Screen Comment [facility] Comment on above: CONFIRMATORY TESTING FOR ALL [...] Opiates Ql (U) Negative < 300 ng/mL [facility] Urine Drug Screen (VISTA)on 09-20-2024 AMPHETAMINES Negative Normal <1000 ng/mL [facility] Comment on above: Order Comment: RUN L OWEST TEST UNK Performed By: #### L 3410.9999, L505.5000 #### [facility] [address] [place], [place], [address] BARBITIURATES Negative Normal < 200 ng/mL [facility] Comment on above: Order Comment: RUN L OWEST TEST UNK Performed By: #### L 3410.9999, L505.5000 #### [facility] [address] [place], [address] BENZODIAZIPINE Negative Normal < 200 ng/mL [facility] Comment on above: Order Comment: RUN L OWEST TEST UNK Performed By: #### L 3410.9999, L505.5000 #### [facility] [address] [place], [address] COCAINE Negative Normal < 300 ng/mL [facility] Comment on above: Order Comment: RUN L OWEST TEST UNK Performed By: #### L 3410.9999, L505.5000 #### [facility] [address] [place], [address] ECSTACY Negative Normal < 500 ng/mL [facility] Comment on above: Order Comment: RUN L OWEST TEST UNK Performed By: #### L 3410.9999, L505.5000 #### [facility] [address] [place], [address] METHADONE Negative Normal < 300 ng/mL [facility] Comment on above: Order Comment: RUN L OWEST TEST UNK Performed By: #### L 3410.9999, L505.5000 #### [facility] [address] [place], [address] OPIATES Negative Normal < 300 ng/mL [facility] Comment on above: Order Comment: RUN L OWEST TEST UNK Performed By: #### L 3410.9999, L505.5000 #### [facility] [address] [place], [address] PCP Negative Normal < 25 ng/mL [facility] Comment on above: Order Comment: RUN L OWEST TEST UNK Performed By: #### L 3410.9999, L505.5000 #### [facility] [address] [place], [address] THC Negative Normal < 50 ng/mL [facility] Comment on above: Order Comment: RUN L OWEST TEST UNK Performed By: #### L 3410.9999, L505.5000 #### [facility] [address] [place], [address] VISTA UDS PH 7 Normal [facility] Comment on above: Order Comment: RUN L OWEST TEST UNK Performed By: #### L 3410.9999, L505.5000 #### [facility] [address] [place], [address] Urine amphetamine measuremen tOrdered By: Hany Paz on 09-20-2024 Amphetamines Ql (U) Negative <1000 ng/mL [facility] Urine barbiturates measureme ntOrdered By: Hany Paz on 09-20-2024 Urine Barbiturates Screen Negative < 200 ng/mL [facility] Urine benzodiazepine levelOr dered By: Hany Paz on 09-20-2024 Benzodiazepines Ql (U) Negative < 200 ng/mL [facility] Urine cocaine levelOrdered B y: Hany Paz on 09-20-2024 Cocaine Ql (U) Negative < 300 ng/mL [facility] Urine kjuct-3-kqtnywaodvecly abinol (THC) measurementOrdered By: Hany Paz on 09-20-2024 Cannabinoids Screen Ql (U) Negative < 50 ng/m L [facility] Urine methylenedioxymethamph etamine (MDMA) measurementOrdered By: Hany Paz on 09-20-2024 MDMA (Ecstasy) Screen Negative < 500 ng/mL [facility] Urine phencyclidine (PCP) de tectionOrdered By: Hany Paz on 09-20-2024 Phencyclidine Ql (U) Negative < 25 ng/mL [facility] Cardiology Visit Reporton Cardiology Visit Report [facility] [address] [place] [address] OFFICE VISIT Date of Service: 09/08/24 MR#: [id number] Acct: [id number] Name: MICHAEL BATES Jr. Rep #: [id number] : 1955 Provider: CAMELIA Hurd Age/Sex: 69/M Location: [facility] Status: Signed HPI HPI History of [...] negative for ischemia. He was admitted to [facility] on October 09, 2023 with chest discomfort. [...] Oximetry (%) 94 Intake Visit Reasons: S/P [facility] 08/16 [facility] Laborer Required: No Is patient in pain?: No Allergies fludrocortisone (From Florinef) Allergy (Severe, Verified 09/08/24 12:53) ANGIOEDEMA losartan Adverse Reaction (Severe, Verified 09/08/24 12:53) Angioedema iodine Adverse Reaction (Verified 09/08/24 12:53) unknown perfume Adverse Reaction (Verified 09/08/24 12:53) Other Medications ???Medication ???Instructions ???Recorded ???Confirmed ???Type aspirin 81 mg tablet,delayed 81 mg PO DAILY@0800 [facility] 09/13/13 09/08/24 History release omega 5-eal-nhg-fish oil 1,000 mg 1,000 mg PO QDAY [...] tabs 10/30/23 (more content not included)... Normal [facility] CNOVon 09-06-2024 CNOV Office Visit (FAMPWS ) MICHAEL BATES ([id number]) 1955 M Date Time Provider Department 09/06/24 2:40 PM [facility] During your visit today, we recorded the following information about you: Pulse Respiration Blood pressure Weight 72/minute 18/minute 128/74 78 kg Nadir Grady MD 09/06/2024 9:34 PM Signed Chief Complaint Patient presents with: ED Follow-up HPI Michaelus Ej Bates is a 69 year old male [...] Neurologia. 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 Normal [facility] CNPSania 09-06-2024 [facility] MICHAEL BATES ([id number]) 1955 Date Time Provider Department 09/06/24 NADIR GRADY [...] strain [S13.9XXA] 07/30/2010 08/30/2010 Other physical therapy [LCY5255] 08/16/2010 08/30/2010 Essential hypertension, benign [I10] 01/17/2012 [...] chronic d (more content not included)... Normal [facility] XR CHEST 2V FRONTAL/LATon XR CHEST [...] tissues: Unremarkable. IMPRESSION: No acute radiographic abnormality. Storage Consultant: [facility] Transcribe Date/Time: Sep 06 2024 4:57P Dictated by : LIZA ARDON MD This examination was interpreted and the report reviewed and electronically signed by: LIZA ARDON MD on Sep 06 2024 4:59PM EST [id number] Normal [facility] XR Chest PA and Lateralon IMPRESSION: No acute radiographic abnormality. Storage Consultant: [facility] Transcribe Date/Time: Sep 06 2024 4:57P Dictated [...] soft tissues: Unremarkable. DIVISION OF RADIOLOGY Provider, [facility] - 09/06/2024 * * *Final Report* * [...] Unremarkable. IMPRESSION IMPRESSION: No acute radiographic abnormality. Storage Consultant: [facility] Transcribe Date/Time: Sep 06 2024 4:57P Dictated by : LIZA ARDON MD This examination was interpreted and the report reviewed and electronically signed by: LIZA ARDON MD on Sep 06 2024 4:59PM EST [facility] Radiology Study observation (narrative) [facility] XR Chest PA and LateralOrder ed By: Ccf Provider on 09-06-2024 [facility] Ova and Parasites 8623on OP OVA AND PARASITES EXAM, ROUTINE These results were obtained using wet preparation(s) and trichrome stained smear. This test does not include testing for Crytosporidium parvum, Cyclospora, or Microsporidia. One negative specimen does not rule out the possibility of a parasitic infection. TESTING PERFORMED AT [facility]. ORIGINAL REPORT ON FILE IN LAB CONTAINS ADDITIONAL TEST SITE INFORMATION. Ova/Parasite Exam NO OVA, CYSTS, OR PARASITES FOUND. Normal [facility] Comment on above: Performed By: #### L 3410.9999, L505.5000 #### [facility] [address] [place], [place], [address] 12 Lead EKGon 08-27-2024 12 Lead EKG [facility] Cardiovascular Services [address] [place] [address] 12 Lead EKG 08/27/24 0949 MR#: [id number] Acct: [id number] Name: MICHAEL BATES Jr. Rep #: [id number] : 1955 69 From: Jd Kern MD [...] Nonspecific ST abnormality Abnormal ECG Confirmed by JD KERN MD ([id number]), editor book KAMI QUINTANA ([id number]) on 08/30/2024 6:42:13 AM Referred By: ES Confirmed By: JD KERN MD 08/30/24 0642 Date Jd Kern MD CC: Dr. Juan Luis Rubio DO; Dr. Nadir Grady MD Signed Normal [facility] Abdomen/Pelvis without Conto n 08-27-2024 Abdomen/Pelvis without Cont [facility] Imaging Services [address] [place], [place] [address] Abdomen/Pelvis without Cont MR#: [id number] Acct: [id number] Name: MICHAEL BATES Jr. Rep #: [id number] : 1955 M 69 From: Pop Nuno MD PCP: Dr. Nadir Grady MD Status: REG ER Study: Abdomen/Pelvis without Cont Date of Exam: 08/02 03/24 Exam# [id number] Ordering Dr: Juan Luis Rubio DO [id number] STUDY: CT ABDOMEN AND PELVIS WITHOUT CONTRAST [...] Luis Rubio DO; Dr. Nadir Grady MD Storage Consultant: Signed Normal [facility] Absolute neutrophil countOrd ered By: ED PROVIDER on 08-27-2024 Neutrophils (Bld) [#/Vol] 13.7 10*3/uL High 2.0-7.7 [facility] Basic Metabolic Profile (BMP )on 08-27-2024 BUN/CRE 22.4 RATIO High 10-20 [facility] Comment on above: Order Comment: 85680 3 URINE TOX Performed By: #### L 3410.9999, L505.5000 #### [facility] [address] [place], [address] CA,Total 10.0 mg/dL Normal 8.5-10.1 [facility] Comment on above: Order Comment: 16946 3 URINE TOX Performed By: #### L 3410.9999, L505.5000 #### [facility] [address] [place], [address] Chloride [Moles/Vol] 101 mmol/L Normal 98-107 [facility] Comment on above: Order Comment: 60069 3 URINE TOX Performed By: #### L 3410.9999, L505.5000 #### [facility] [address] [place], [address] CO2 [Moles/Vol] 21.0 mmol/L Normal 21.0-32.0 [facility] Comment on above: Order Comment: 67204 3 URINE TOX Performed By: #### L 3410.9999, L505.5000 #### [facility] [address] [place], [address] Creatinine [Mass/Vol] 1.34 mg/dL High 0.70-1.30 [facility] Comment on above: Order Comment: 89453 3 URINE TOX Result Comment: The validity of the calculated GFR GFRAA in patients over 70 years has not been determined. Clinical correlation is essential. Performed By: #### L 3410.9999, L505.5000 #### [facility] [address] [place], [address] ECRCL 52.21 ml/min Normal [facility] Comment on above: Order Comment: 45738 3 URINE TOX Performed By: #### L 3410.9999, L505.5000 #### [facility] [address] [place], [address] EST GFR - AA 68 mL/min Normal >60 [facility] Comment on above: Order Comment: 53730 3 URINE TOX Result Comment: Afri can Dominican GFR Calc Performed By: #### L 3410.9999, L505.5000 #### [facility] [address] [place], [address] GAP 11 Normal 5-15 [facility] Comment on above: Order Comment: 57566 3 URINE TOX Performed By: #### L 3410.9999, L505.5000 #### [facility] [address] [place], [address] GFR/1.73 sq M.predicted among non-blacks MDRD (S/P/Bld) [Vol rate/Area] 56 mL/min/{1.73_m2} Low >60 [facility] Comment on above: Order Comment: 59506 3 URINE TOX Result Comment: Non- GFR Calc Performed By: #### L 3410.9999, L505.5000 #### [facility] [address] [place], [address] Glucose [Mass/Vol] 234 mg/dL High 74-106 [facility] Comment on above: Order Comment: 29087 3 URINE TOX Result Comment: Gluc ose result greater than or equal to 200 mg/dL suggests DIABETES MELLITUS per A.D.A. criteria. Performed By: #### L 3410.9999, L505.5000 #### [facility] [address] [place], [address] Potassium [Moles/Vol] 4.2 mmol/L Normal 3.5-5.1 [facility] Comment on above: Order Comment: 04875 3 URINE TOX Performed By: #### L 3410.9999, L505.5000 #### [facility] [address] [place], [address] Sodium [Moles/Vol] 133 mmol/L Low 136-145 [facility] Comment on above: Order Comment: 27517 3 URINE TOX Performed By: #### L 3410.9999, L505.5000 #### [facility] [address] [place], [address] Urea nitrogen [Mass/Vol] 30 mg/dL High 7-18 [facility] Comment on above: Order Comment: 41055 3 URINE TOX Performed By: #### L 3410.9999, L505.5000 #### [facility] [address] [place], [address] Basophil percentageOrdered B y: ED PROVIDER on 08-27-2024 Basophils/100 WBC (Bld) 0.5 % 0-1 [facility] Bilirubin Test strip Ql (U)O rdered By: Juan Luis Rubio on 08-27-2024 Bilirubin Ql (U) Negative Negative [facility] Bilirubin directOrdered By: Juan Luis Rubio on 08-27-2024 Bilirubin.direct [Mass/Vol] 0.15 mg/dL 0.00-0.3 0 [facility] Bilirubin, totalOrdered By: Juan Luis Rubio on 08-27-2024 Bilirubin [Mass/Vol] 0.60 mg/dL 0.20-1.00 [facility] Comment on above: For patients on eltr ombopag therapy, use of Dimension Dorothy TBIL is not recommended. Blood urea nitrogen (BUN)/cr eatinine ratioOrdered By: Juan Luis Rubio on 08-27-2024 Urea nitrogen/Creatinine [Mass ratio] 22.4 mg/mg High 10-20 [facility] C. difficile DNA RIVER+probe Q l (Unsp spec)Ordered By: Juan Luis Rubio on 08-27-2024 Clostridioides difficile (PCR) [facility] CBC W/Diff, Automatedon 12-2 Absolute Lymph 1.06 X10 3/uL Normal 0.83-4.51 [facility] Comment on above: Performed By: #### L 3410.9999, L505.5000 #### [facility] [address] [place], [address] Absolute Neut 13.7 X10 3/uL High 2.0-7.7 [facility] Comment on above: Performed By: #### L 3410.9999, L505.5000 #### [facility] [address] [place], [address] Basophils/100 WBC (Bld) 0.5 % Normal 0-1 [facility] Comment on above: Performed By: #### L 3410.9999, L505.5000 #### [facility] [address] [place], [address] Eosinophils/100 WBC (Bld) 1.3 % Normal 0-5 [facility] Comment on above: Performed By: #### L 3410.9999, L505.5000 #### [facility] [address] [place], [address] Erythrocyte distribution width (RBC) [Ratio] 12.9 % Normal 11.6-14.6 [facility] Comment on above: Performed By: #### L 3410.9999, L505.5000 #### [facility] [address] [place], [address] Hematocrit (Bld) [Volume fraction] 44.8 % Normal 40-54 [facility] Comment on above: Performed By: #### L 3410.9999, L505.5000 #### [facility] [address] [place], [address] Hemoglobin (Bld) [Mass/Vol] 14.7 g/dL Normal 13.0-16. 5 [facility] Comment on above: Performed By: #### L 3410.9999, L505.5000 #### [facility] [address] [place], [address] IG% 0.500 Normal 0.0-0.9 [facility] Comment on above: Result Comment: IG% - Immature Granulocytes (promyelocytes, myelocytes and metamyelocytes) > 1% indicates that a LEFT SHIFT is Present. Performed By: #### L 3410.9999, L505.5000 #### [facility] [address] [place], [address] Lymphocytes/100 WBC (Bld) 6.4 % Low 19-41 [facility] Comment on above: Performed By: #### L 3410.9999, L505.5000 #### [facility] [address] [place], [address] MCH (RBC) [Entitic mass] 28.7 pg Normal 27.0-32.0 [facility] Comment on above: Performed By: #### L 3410.9999, L505.5000 #### [facility] [address] [place], [address] MCHC (RBC) [Mass/Vol] 32.8 g/dL Normal 32-36 [facility] Comment on above: Performed By: #### L 3410.9999, L505.5000 #### [facility] [address] [place], [address] MCV (RBC) [Entitic vol] 87.3 fL Normal 80-94 [facility] Comment on above: Performed By: #### L 3410.9999, L505.5000 #### [facility] [address] [place], [address] Monocytes/100 WBC (Bld) 8.0 % Normal 0-10 [facility] Comment on above: Performed By: #### L 3410.9999, L505.5000 #### [facility] [address] [place], [address] Neutrophils/100 WBC (Bld) 83.3 % High 47-70 [facility] Comment on above: Performed By: #### L 3410.9999, L505.5000 #### [facility] [address] [place], [address] Nucleated RBC (Bld) [#/Vol] 0 10*3/uL Normal 0-5 [facility] Comment on above: Performed By: #### L 3410.9999, L505.5000 #### [facility] [address] [place], [address] Platelet mean volume (Bld) [Entitic vol] 9.8 fL Normal 6.2-12.0 [facility] Comment on above: Performed By: #### L 3410.9999, L505.5000 #### [facility] [address] [place], [address] Platelets (Bld) [#/Vol] 277 10*3/uL Normal 150-450 [facility] Comment on above: Performed By: #### L 3410.9999, L505.5000 #### [facility] [address] [place], [address] RBC (Bld) [#/Vol] 5.13 10*6/uL Normal 4.6-6.2 [facility] Comment on above: Performed By: #### L 3410.9999, L505.5000 #### [facility] [address] [place], [address] RDW SD 41.0 fl Normal 35.1-43.9 [facility] Comment on above: Performed By: #### L 3410.9999, L505.5000 #### [facility] [address] [place], [address] WBC (Bld) [#/Vol] 16.4 10*3/uL High 4.4-11.0 [facility] Comment on above: Performed By: #### L 3410.9999, L505.5000 #### [facility] [address] [place], [address] CDIFF (PCR)on 08-27-2024 CDIFF Pending 027 027 NAP1-B1 Presumptive Negative *for epidemiolologic???use C. Diff PCR Negative- No toxigenic C. Diff Detected Normal [facility] Comment on above: Performed By: #### L 3410.9999, L505.5000 #### [facility] [address] [place], [address] Carbon dioxide measurementOr dered By: Juan Luis Rubio on 08-27-2024 CO2 [Moles/Vol] 21.0 mmol/L 21.0-32.0 [facility] Chest 1 View (Portable)on Chest 1 View (Portable) [facility] Imaging Services [address] [place] [address] Chest 1 View (Portable) MR#: [id number] Acct: [id number] Name: PAULOMICHAEL Jr. Rep #: [id number] : 1955 M 69 From: Moises Escoto PCP: Dr. Nadir Grady MD Status: PRE ER Study: Chest 1 View (Portable) Date of Exam: 08/27/24 Exam# [id number] Ordering Dr: Juan Luis Rubio DO [id number] INDICATION: chest pain EXAMINATION/TECHNIQUE: X-RAY - XR [...] Luis Rubio, DO; Dr. Nadir Grady MD Storage Consultant: Signed Normal [facility] Chloride measurementOrdered By: Juan Luis Rubio on 08-27-2024 Chloride [Moles/Vol] 101 mmol/L 98-107 [facility] ENTERIC PATHOGEN PANEL STOOL on 08-27-2024 EP [...] sent to Infection Control Printer [id number] 08/27/24 143 JENNIE. GI pathogens Pnl Stl RIVER+probe RESULTS CALLED TO DANIEL SAL 08/27/24 1435 Karin Barber. REPORT READ BACK BY . CAMPYLOBACTER Not Detected Norovirus A Norovirus Detected A Rotavirus Not Detected Salmonella Not Detected Shiga Toxin Not Detected Shigella sp. Not Detected VIBRIO Not Detected Yersinia Not Detected Norovirus Normal [facility] Comment on above: Performed By: #### L 3410.9999, L505.5000 #### [facility] [address] [place], [address] Emergency Department Summary on 08-27-2024 Emergency Department Summary [facility] Medical Records Department [address] [place] [address] Emergency Department Summary 08/27/24 MR#: [id number] Acct: [id number] Name: MICHAEL BATES Jr. Rep #: [id number] : 1955 69 From: Juan Luis Rubio DO PCP: Dr. Nadir Grady MD Status:DEP ER Location: ED HPI History of Present Illness Chief Complaint: Chest Pain Informant: patient and family Narrative Narrative: 69-year-old male presenting to the emergency room with weakness diarrhea and chest pressure. Patient states that a couple weeks ago he had a stent ("my 12") placed here at the hospital. He states [...] a year. He believes it is Brilinta. 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 Normal [facility] Eosinophil percentageOrdered By: ED PROVIDER on 08-27-2024 Eosinophils/100 WBC (Bld) 1.3 % 0-5 [facility] Epithelial cells.squamous LM Ql (Urine sed)Ordered By: Juan Luis Rubio on 08-27-2024 Epithelial cells.squamous LM.HPF (Urine sed) [#/Area] 0 /[HPF] 0-5 [facility] Erythrocyte distribution wid th ratioOrdered By: ED PROVIDER on 08-27-2024 Erythrocyte distribution width (RBC) [Ratio] 12.9 % 11.6-14.6 [facility] Erythrocyte distribution wid th standard deviationOrdered By: ED PROVIDER on 08-27-2024 Erythrocyte distribution width (RBC) [Entitic vol] 41.0 fL 35.1-43.9 [facility] Estimated glomerular filtrat ion rate (GFR) AmericanOrdered By: Juan Luis Rubio on 08-27-2024 Estimated GFR (MDRD) Amer 68 mL/min >60 [facility] Comment on above: GFR Calc Estimation of creatinine екатерина aranceOrdered By: Juan Luis Rubio on 08-27-2024 Estimated Creatinine Clearance Calc 52.21 ml/min [facility] Glomerular filtration rate ( GFR) estimationOrdered By: Juan Luis Rubio on 08-27-2024 Estimated GFR (MDRD) Non-Af Amer 56 mL/min Low >60 [facility] Comment on above: Non- GFR Calc Glucose Ql (U)Ordered By: Nitesh Rubio on 08-27-2024 Glucose (U) [Mass/Vol] 1000 mg/dL High Normal [facility] Glucose measurementOrdered B y: Juan Luis Rubio on 08-27-2024 Glucose [Mass/Vol] 234 mg/dL High 74-106 [facility] Comment on above: Glucose result great er than or equal to 200 mg/dLsuggests DIABETES MELLITUS per A.D.A. criteria. Hematocrit Auto (Bld) [Volum e fraction]Ordered By: ED PROVIDER on 08-27-2024 Hematocrit (Bld) [Volume fraction] 44.8 % 40-54 [facility] Hemoglobin measurementOrdere d By: ED PROVIDER on 08-27-2024 Hemoglobin (Bld) [Mass/Vol] 14.7 g/dL 13.0-16. 5 [facility] Immature granulocytes/100 WB C Auto (Bld)Ordered By: ED PROVIDER on 08-27-2024 Immature granulocytes/100 WBC (Bld) 0.500 % 0.0-0.9 [facility] Comment on above: IG% - Immature Granu locytes (promyelocytes, myelocytes and metamyelocytes) > 1% indicates that a LEFT SHIFT is Present. Ketones Test strip Ql (U)Ord ered By: Juan Luis Rubio on 08-27-2024 Ketones Ql (U) 5 mg/dl High Negative [facility] L501.4020on 08-27-2024 TROPONIN-I HS 4 pg/mL Normal 3.0-78.0 [facility] Comment on above: Result Comment: Troy barry Note: New Test Units and Gender Specific Reference Ranges. For more information see Policy Stat Procedure Dorothy High Sensitivity Troponin (TNIH) and attachments. Performed By: #### L 3410.9999, L505.5000 #### [facility] [address] [place], [address] L501.5477on 08-27-2024 TROPONIN-I HS 4 pg/mL Normal 3.0-78.0 [facility] Comment on above: Order Comment: [id number] 3 URINE TOX Result Comment: Troy barry Note: New Test Units and Gender Specific Reference Ranges. For more information see Policy Stat Procedure Dorothy High Sensitivity Troponin (TNIH) and attachments. Performed By: #### L 3410.9999, L505.5000 #### [facility] [address] [place], [address] Laboratory - Chemistry and C hemistry - challengeOrdered By: Juan Luis Rubio on 08-27-2024 AST [Catalytic activity/Vol] 25 U/L 15-37 [facility] Lactoferrin IA Ql (Stl)Order ed By: Juan Luis Rubio on 08-27-2024 Stool Lactoferrin [facility] Liver Profileon 08-27-2024 Albumin [Mass/Vol] 5.1 g/dL High 3.2-5.0 [facility] Comment on above: Performed By: #### L 500.3400 #### [facility] [address] [place], [address] ALK P 155 U/L High 45-117 [facility] Comment on above: Performed By: #### L 500.3400 #### [facility] [address] [place], [address] ALT [Catalytic activity/Vol] 36 U/L Normal 16-61 [facility] Comment on above: Performed By: #### L 500.3400 #### [facility] [address] [place], [address] AST [Catalytic activity/Vol] 25 U/L Normal 15-37 [facility] Comment on above: Performed By: #### L 500.3400 #### [facility] [address] [place], [address] Bilirubin [Mass/Vol] 0.60 mg/dL Normal 0.20-1.00 [facility] Comment on above: Result Comment: For patients on eltrombopag therapy, use of Dimension Dorothy TBIL is not recommended. Performed By: #### L 500.3400 #### [facility] [address] [place], [address] Bilirubin.direct [Mass/Vol] 0.15 mg/dL Normal 0.00-0.3 0 [facility] Comment on above: Performed By: #### L 500.3400 #### [facility] [address] [place], [address] Globulin (S) [Mass/Vol] 4.0 g/dL Normal 2.2-4.2 [facility] Comment on above: Performed By: #### L 500.3400 #### [facility] [address] [place], [address] (369 T PROT 9.1 g/dL High 6.4-8.2 [facility] Comment on above: Performed By: #### L 500.3400 #### [facility] [address] [place], [place], [address] Lymphocytes Auto (Unsp spec) [#/Vol]Ordered By: ED PROVIDER on 08-27-2024 Lymphocytes (Bld) [#/Vol] 1.06 10*3/uL 0.83-4.5 1 [facility] Lymphocytes/100 WBC Auto (Un sp spec)Ordered By: ED PROVIDER on 08-27-2024 Lymphocytes/100 WBC (Bld) 6.4 % Low 19-41 [facility] MCV (mean corpuscular volume ) determinationOrdered By: ED PROVIDER on 08-27-2024 MCV (RBC) [Entitic vol] 87.3 fL 80-94 [facility] Mean corpuscular hemoglobin (MCH) determinationOrdered By: ED PROVIDER on 08-27-2024 MCH (RBC) [Entitic mass] 28.7 pg 27.0-32.0 [facility] Mean corpuscular hemoglobin concentration (MCHC) determinationOrdered By: ED PROVIDER on 08-27-2024 MCHC (RBC) [Mass/Vol] 32.8 g/dL 32-36 [facility] Mean platelet volume determi nationOrdered By: ED PROVIDER on 08-27-2024 Platelet mean volume (Bld) [Entitic vol] 9.8 fL 6.2-12.0 [facility] Microscopic analysis of urin e for red blood cells (RBC)Ordered By: Juan Luis Rubio on 08-27-2024 Urine RBC 0 SEEN /hpf 0-5 [facility] Monocyte percentageOrdered B y: ED PROVIDER on 08-27-2024 Monocytes/100 WBC (Bld) 8.0 % 0-10 [facility] Mucus LM Ql (Urine sed)Order ed By: Juan Luis Rubio on 08-27-2024 Mucus Ql (Urine sed) 0 SEEN /hpf [facility] Neutrophil percentageOrdered By: ED PROVIDER on 08-27-2024 Neutrophils/100 WBC (Bld) 83.3 % High 47-70 [facility] Nitrite Test strip Ql (U)Ord ered By: Juan Luis Rubio on 08-27-2024 Nitrite Ql (U) Negative Negative [facility] Nucleated red blood cell per centageOrdered By: ED PROVIDER on 08-27-2024 Nucleated RBC/100 WBC (Bld) [Ratio] 0 % 0-5 [facility] Ova and parasitesOrdered By: Juan Luis Rubio on 08-27-2024 Ova and Parasites [facility] Platelet countOrdered By: ED PROVIDER on 08-27-2024 Platelets (Bld) [#/Vol] 277 10*3/uL 150-450 [facility] Potassium measurementOrdered By: Juan Luis Rubio on 08-27-2024 Potassium [Moles/Vol] 4.2 mmol/L 3.5-5.1 [facility] Protein Test strip Ql (U)Ord ered By: Juan Luis Rubio on 08-27-2024 Protein Ql (U) 30 mg/dl High Negative [facility] RBC Auto (Bld) [#/Vol]Ordere d By: ED PROVIDER on 08-27-2024 RBC (Bld) [#/Vol] 5.13 10*6/uL 4.6-6.2 [facility] Serum anion gap measurementO rdered By: Juan Luis Rubio on 08-27-2024 Anion gap [Moles/Vol] 11 mmol/L 5-15 [facility] Serum globulin measurementOr dered By: Juan Luis Rubio on 08-27-2024 Globulin (S) [Mass/Vol] 4.0 g/dL 2.2-4.2 [facility] Serum or plasma alanine toscano otransferase (ALT) measurementOrdered By: Juan Luis Rubio on 08-27-2024 ALT [Catalytic activity/Vol] 36 U/L 16-61 [facility] Serum or plasma albumin jaziel urement (mass/volume)Ordered By: Juan Luis Rubio on 08-27-2024 Albumin [Mass/Vol] 5.1 g/dL High 3.2-5.0 [facility] Serum or plasma alkaline geronimo sphatase measurementOrdered By: Juan Luis Rubio on 08-27-2024 ALP [Catalytic activity/Vol] 155 U/L High 45-117 [facility] Serum or plasma calcium jaziel urement (mass/volume)Ordered By: Juan Luis Rubio on 08-27-2024 Calcium [Mass/Vol] 10.0 mg/dL 8.5-10.1 [facility] Serum or plasma creatinine m easurement (mass/volume)Ordered By: Juan Luis Rubio on 08-27-2024 Creatinine [Mass/Vol] 1.34 mg/dL High 0.70-1.30 [facility] Comment on above: The validity of the calculated GFR & GFRAA in patients over 70 years has not been determined. Clinical correlation is essential. Serum or plasma urea nitroge n measurement (mass/volume)Ordered By: Jua nLuis Rubio on 08-27-2024 Urea nitrogen [Mass/Vol] 30 mg/dL High 7-18 [facility] Sodium levelOrdered By: Tien Rubio on 08-27-2024 Sodium [Moles/Vol] 133 mmol/L Low 136-145 [facility] Stool Lactoferrin/WBCon 08-02 WBCST Normal Reference Ran ge = Negative Fecal WBC Lactoferrin A Positive: Fecal WBC Lactoferrin present A Normal [facility] Comment on above: Performed By: #### L 3410.9999, L505.5000 #### [facility] [address] [place], [address] Stool enteric pathogen panel by probe and target amplification methodOrdered By: Juan Luis Rubio on 08-27-2024 Enteric Bacteriology Norovirus Abnormal [facility] Total proteinOrdered By: Cesar Rubio on 08-27-2024 Protein [Mass/Vol] 9.1 g/dL High 6.4-8.2 [facility] Troponin IOrdered By: Juan Luissaskia Rubio on 08-27-2024 Troponin I High Sensitivity 4 pg/mL 3.0-78.0 [facility] Comment on above: Please Note: New [place] t Units and Gender Specific Reference Ranges. For more information see Policy Stat Procedure Dorothy High Sensitivity Troponin (TNIH) and attachments. Urinalysis, Completeon 08-27 BACTERIA 0 SEEN Normal None Seen [facility] Comment on above: Order Comment: [id number] 3 URINE TOX Performed By: #### L 3410.9999, L505.5000 #### [facility] [address] [place], [address] EPI,SQUAMOUS 0 SEEN Normal 0-5 [facility] Comment on above: Order Comment: [id number] 3 URINE TOX Performed By: #### L 3410.9999, L505.5000 #### [facility] [address] [place], [address] Mucus Ql (Urine sed) 0 SEEN Normal [facility] Comment on above: Order Comment: 16327 3 URINE TOX Performed By: #### L 3410.9999, L505.5000 #### [facility] [address] [place], [address] RBC 0 SEEN Normal [address] [place] [address] Comment on above: Order Comment: 28969 3 URINE TOX Performed By: #### L 3410.9999, L505.5000 #### [facility] [address] [place], [address] WBC 0 SEEN Normal [address] [place] [address] Comment on above: Order Comment: 47756 3 URINE TOX Performed By: #### L 3410.9999, L505.5000 #### [facility] [address] [place], [address] Urine blood detectionOrdered By: Juan Luis Rubio on 08-27-2024 Urine Occult Blood Negative Negative [facility] Urine clarityOrdered By: Cesar Rubio on 08-27-2024 Clarity (U) Clear Clear [facility] Urine color determinationOrd ered By: Juan Luis Rubio on 08-27-2024 Color (U) Yellow Yellow [facility] Urine leukocyte esterase det ection by dipstickOrdered By: Juan Luis Rubio on 08-27-2024 Leukocyte esterase Test strip Ql (U) Negative Negative [facility] Urine pHOrdered By: Juan Luis chand on 08-27-2024 pH (U) 6.0 [pH] 5.0 - 8.0 [facility] Urine sediment bacteria coun t by microscopy (number/high power field)Ordered By: Juan Luis Rubio on 08-27-2024 Bacteria LM.HPF (Urine sed) [#/Area] 0 /[HPF] None Seen [facility] Urine specific gravity measu rementOrdered By: Juan Luis Rubio on 08-27-2024 Specific gravity (U) [Rel density] 1.015 1.002-1.03 0 [facility] Urobilinogen Ql (U)Ordered B y: Juan Luis Rubio on 08-27-2024 Urine Urobilinogen Normal mg/dl Normal [facility] White blood cell (WBC) count Ordered By: ED PROVIDER on 08-27-2024 WBC (Bld) [#/Vol] 16.4 10*3/uL High 4.4-11.0 [facility] White blood cell countOrdere d By: Juan Luis Rubio on 08-27-2024 Urine WBC 0 SEEN /hpf 0-5 [facility] Cardiac Cath Diagnosticon Cardiac Cath Diagnostic [facility] Imaging Services [address] [place] [address] Cardiac Cath Diagnostic MR#: [id number] Acct: [id number] Name: MICHAEL BATES Jr. Rep #: [id number] : 1955 69 From: Jd Kern MD PCP: Dr. Nadir Grady MD Status:[facility] Patient Name: MICHAEL BATES Study Date: 08/16/2024 Performing: Jd Kern MD Ht: 70 inches 177.8 cm : 1955 Wt: 178.99 lbs 81.19 kg Age: 69 Gender: male BSA: 1.99 PROCEDURE(S) PERFORMED DC01-(57828)LHC/COR/LV CLINICAL PROFILE AND INDICATIONS Indications: Worsening Angina [...] multiple views using a 5 Fr. 4.0 Oldham catheter. Right Coronary Artery selective angiography was then performed in multiple views using a 5 Fr. 4.0 Oldham catheter. Left Ventriculography was performed in SUAREZ [...] 09:22:56 Jd Kern MD 08/16/24922 Date Jd Kern MD Cosigner Signature: Date (if indicated) CC: Dr. Jd Kern MD; Dr. Nadir Grady MD Date Dictated: 08/16/24826 Date Transcribed: 08/16/24922 Storage Consultant: CO Signed Normal [facility] Cardiac Cath Interventionon 08-16-2024 Cardiac Cath Intervention [facility] Imaging Services [address] [place] [address] Cardiac Cath Intervention MR#: [id number] Acct: [id number] Name: MICHAEL BATES Jr. Rep #: [id number] : 1955 69 From: Jd Kern MD PCP: Dr. Nadir Grady MD Status:[facility] Patient Name: MICHAEL BATES Study Date: 08/16/2024 Performing: Blanka Cabrales MD Ht: 70 inches 177.8 cm : 1955 Wt: 178.99 lbs 81.19 kg Age: 69 Gender: male BSA: 1.99 PROCEDURE(S) PERFORMED IC12-(26116/C9600)RODDY W/WO PTCA, SINGLE CORONARY ARTERY CLINICAL PROFILE [...] multiple views using a 5 Fr. 4.0 Oldham catheter. Right Coronary Artery selective angiography was then performed in multiple views using a 5 Fr. 4.0 Oldham catheter. Left Ventriculography was performed in SUAREZ [...] 3 Lesion Devices: Zavaleta .014 190cm BMW Gorham Straight Cordis 6 Fr JR4 100cm Guide Catheter Medtronic SC EUPHORA RX 3.0x12 BALLOON [employer] cutting balloon 3.0x10 Medtronic 3.5 x 12 [...] Small Signature: Date (more content not included)... [facility] 08-12-2024 [facility] Office Visit (UCWSTR ) MICHAEL BATES ([id number]) 1955 M Date Time Provider Department 08/12/24 8:00 AM [facility] During your visit today, we recorded the following information about you: Temperature Pulse Respiration Blood pressure 97.2 degrees 70/minute 20/minute 118/74 Weight 82.2 kg Bridget JosephAYAAN 08/12/2024 8:15 AM Signed This note was created using [employer]. Subjective Michael Bates is a 69 year [...] and Plan ASSESSMENT/PLAN: 1. Adverse effect of esuc-shy-blmenej medication, initial encounter - ICD9: E947.9, ICD10: T50.905A On physical exam I saw no obvious sign of swelling to the mouth, lips, or tongue. Patient did have a tiny sore near the base of the frenulum. I informed patient he should use fwqh-hcm-etuvizl antihistamine such as Claritin, Benadryl, or Zyrtec. I informed him that if it anytime he felt as though his symptoms were not improving or he was having any trouble with swallowing or breathing he should go directly to the emergency department. He was instructed not to use the drops again. Bridget Joseph APRN.CNP Allergies As of Date: 08/12/2024 Noted Allergy Reaction FLORINEF (FLUDROCORTISONE) 04/25/2022 18 - Angioedema LOSARTAN 10/24/2023 18 - Angioedema PERFUMES 01/20/2012 14 - Other: See Comments Comments: sneezing Date Reviewed: 08/12/2024 Reviewed by: Bridget Joseph APRN.CNP - Fully Assessed Reason for Visit: Mouth Sores [839] Cmt: Sore in mouth on bottom front gum area x 1 day Primary Visit Diagnosis:Adverse effect of cqox-nlb-vqwjdmp medication, initial encounter [T50.460Z] Prescriptions as of 08/12/2024 - isosorbide mononitrate [...] 1 capsule by mouth once daily. Per [facility] - ranolazine ER (RANEXA) 1,000 mg tab ER 12 hr Take 1 tablet by mouth two times a day. Per [facility] - carvedilol (COREG) 3.125 mg tablet Take 1 tablet by mouth two times a day. Per [facility] - ticagrelor (BRILINTA) 90 mg tablet Take 1 tablet by mouth two times a day. Per [facility] - docosahexaenoic acid/epa (FISH OIL [...] Glucose Cont (more content not included)... [facility] ([id number]) 1955 M Date Time Provider Department 08/10/24 [facility] During your visit today, we recorded the [...] providers results and instructions. Pt voices understanding. Cody Blue RN Allergies As of Date: 08/10/2024 Noted Allergy Reaction FLORINEF (FLUDROCORTISONE) 04/25/2022 18 - Angioedema LOSARTAN 10/24/2023 18 - Angioedema PERFUMES 01/20/2012 14 - Other: See Comments Comments: sneezing Date Reviewed: 07/24/2024 Reviewed by: Bridget Joseph, COLLETTE.THERMITE BOMB LOADER - Fully Assessed Reason for Visit: Results [95] Prescriptions as of 08/10/2024 - isosorbide mononitrate ER (IMDUR) 30 mg 24 hr tablet Take 1 tablet by mouth once daily. Per Cardio: [facility] - empagliflozin (JARDIANCE) 10 [...] by mouth two times a day. Per [facility] - carvedilol (COREG) 3.125 mg tablet Take 1 tablet by mouth two times a day. Per [facility] - ticagrelor (BRILINTA) 90 mg tablet Take 1 tablet by mouth two times a day. Per [facility] - docosahexaenoic acid/epa (FISH OIL [...] strain [S13.9XXA] 07/30/2010 08/30/2010 Other physical therapy [[id number]] 08/16/2010 08/30/2010 Essential hypertension, benign [I10] 01/17/2012 [...] 06/12/2018 Neurop (more content not included)... Normal [facility] ALKALINE PHOSPHATASE ISOENZY MES (P)on 08-09-2024 ALK PHOS BONE % 34.4 % Normal 10.7-68.3 [facility] Comment on above: Order Comment: Speci men Type: BLOOD SPECIMENOrdering Facility: [facility] Address: [address] [place] [address] Performed By: #### A LKISOP ####[facility] LABCLIA [id number] [place] [address] [place] ALK PHOS LIVER % 48.3 % Normal 26.0-86.2 [facility] Comment on above: Order Comment: Speci men Type: BLOOD SPECIMENOrdering Facility: [facility] Address: [address] [place] [address] Performed By: #### A LKISOP ####[facility] LABCLIA [id number] [place] [address] [place] BONE FRACTION 47.8 U/L Normal 12.9-52.6 [facility] Comment on above: Order Comment: Speci men Type: BLOOD SPECIMENOrdering Facility: [facility] Address: [address] [place] [address] Performed By: #### A LKISOP ####[facility] LABCLIA [id number] [place] [address] [place] INTESTINE FRACTION 24.0 U/L High 0.0-16.3 [facility] Comment on above: Order Comment: Speci men Type: BLOOD SPECIMENOrdering Facility: [facility] Address: [address] [place] [address] Performed By: #### A LKISOP ####[facility] LABIA [id number] [place] [address] [place] LIVER FRACTION 67.1 U/L Normal 16.0-69.3 [facility] Comment on above: Order Comment: Speci men Type: BLOOD SPECIMENOrdering Facility: [facility] Address: [address] [place] [address] Performed By: #### A LKISOP ####[facility] [id number] [place] [address] [place] Neutrophils/100 WBC (Bld) 17.3 % Normal 0.0-24.2 [facility] Comment on above: Order Comment: Speci men Type: BLOOD SPECIMENOrdering Facility: [facility] Address: [address] [place] [address] Performed By: #### A LKISOP ####[facility] [id number] [place] [address] [place] ALP SerPl-cCncon 08-09-2024 ALP [Catalytic activity/Vol] 139 U/L High 38-113 [facility] Comment on above: Order Comment: Speci men Type: BLOOD SPECIMENOrdering Facility: [facility] Address: [address] [place] [address] Performed By: #### 6 768-6, 2324-2 ####[facility] LABIA [id number] [place] [address] [place] GGT SerPl-cCncon 08-09-2024 Gamma glutamyl transferase [Catalytic activity/Vol] 14 U/L Normal 10-70 [facility] Comment on above: Order Comment: Speci men Type: BLOOD SPECIMENOrdering Facility: [facility] Address: [address] [place] [address] Performed By: #### 6 768-6, 2324-2 ####[facility] SINCERE [id number] REMEDIOS SOW [id number] [place] [address] [facility] Jesse [facility] MICHAEL BATES ([id number]) 1955 M Date Time Provider Department 08/04/24 [facility] During your visit today, we [...] Comments: sneezing Date Reviewed: 07/24/2024 Reviewed by: Bridegt Joseph APRN.[facility] - Fully Assessed Reason for Visit: Patient Update [1234] Prescriptions as of 08/04/2024 - isosorbide mononitrate ER (IMDUR) 30 mg 24 hr tablet Take 1 tablet by mouth once daily. Per Cardio: [facility] - empagliflozin (JARDIANCE) 10 [...] 1 tablet by mouth once daily. Per [facility] - atorvastatin (LIPITOR) 80 mg tablet Take 1 tablet by mouth once daily. Managed by cardiology, Dr. Kern - omeprazole (PRILOSEC) 40 mg capsule Take 1 capsule by mouth once daily. Per [facility] - ranolazine ER (RANEXA) 1,000 mg tab ER 12 hr Take 1 tablet by mouth two times a day. Per [facility] - carvedilol (COREG) 3.125 mg tablet Take 1 tablet by mouth two times a day. Per [facility] - ticagrelor (BRILINTA) 90 mg tablet Take 1 tablet by mouth two times a day. Per [facility] - docosahexaenoic acid/epa (FISH OIL [...] strain [S13.9XXA] 07/30/2010 08/30/2010 Other physical therapy [[id number]] 08/16/2010 08/30/2010 Essential hypertension, benign [I10] 01/17/2012 [...] Medicare annua (more content not included)... Normal [facility] 12 Lead EKG performed by [facility] on 07-28-2024 12 Lead EKG performed by [facility] [address] [place] [address] 12 Lead EKG performed by [facility] 07/28/24852 MR#: [id number] Acct: [id number] Name: MICHAEL BATES Jr. Rep #: [id number] : 1955 69 From: Yolanda Ye Attending Dr: CAMELIA Julian Status: DEP AMB Ordering Dr: Yolanda Dean Date: 07/03 03/24 [place] [facility] Sex: M C [place] [facility] Lead EKG performed [place] [facility] ECG Report Interpretation ----Sinus Rhythm WITHIN NORMAL LIMITSElectronically signed on 07/28/2024 at 12:[address] Priscilla Donaldson Software Version [id number] 07/28/24 1242 Date Yolanda DENISE CC: Dr. Nadir Grady MD Date Dictated: 07/28/24852 Date Transcribed: 07/28/24852 Storage Consultant: MMAbdirahman Signed Normal [facility] Absolute neutrophil countOrd ered By: Yolanda Dean on 07-28-2024 Neutrophils (Bld) [#/Vol] 3.7 10*3/uL 2.0-7.7 [facility] Basic Metabolic Profile (BMP )on 07-28-2024 BUN/CRE 16.5 RATIO Normal 10-20 [facility] Comment on above: Performed By: #### L 3410.9999, L505.5000 #### [facility] [address] [place], [address] CA,Total 9.5 mg/dL Normal 8.5-10.1 [facility] Comment on above: Performed By: #### L 3410.9999, L505.5000 #### [facility] [address] [place], [address] Chloride [Moles/Vol] 107 mmol/L Normal 98-107 [facility] Comment on above: Performed By: #### L 3410.9999, L505.5000 #### [facility] [address] [place], [address] CO2 [Moles/Vol] 24.0 mmol/L Normal 21.0-32.0 [facility] Comment on above: Performed By: #### L 3410.9999, L505.5000 #### [facility] [address] [place], [address] Creatinine [Mass/Vol] 1.03 mg/dL Normal 0.70-1.30 [facility] Comment on above: Result Comment: The validity of the calculated GFR GFRAA in patients over 70 years has not been determined. Clinical correlation is essential. Performed By: #### L 3410.9999, L505.5000 #### [facility] [address] [place], [address] EST GFR - AA 91 mL/min Normal >60 [facility] Comment on above: Result Comment: Afri can Dominican GFR Calc Performed By: #### L 3410.9999, L505.5000 #### [facility] [address] [place], [address] GAP 6 Normal 5-15 [facility] Comment on above: Performed By: #### L 3410.9999, L505.5000 #### [facility] [address] [place], [address] GFR/1.73 sq M.predicted among non-blacks MDRD (S/P/Bld) [Vol rate/Area] 76 mL/min/{1.73_m2} Normal >60 [facility] Comment on above: Result Comment: Non- GFR Calc Performed By: #### L 3410.9999, L505.5000 #### [facility] [address] [place], [address] Glucose [Mass/Vol] 190 mg/dL High 74-106 [facility] Comment on above: Result Comment: Fast ing Glucose result greater than or equal to 126 mg/dL suggests DIABETES MELLITUS per A.D.A. criteria. Performed By: #### L 3410.9999, L505.5000 #### [facility] [address] [place], [address] Potassium [Moles/Vol] 4.2 mmol/L Normal 3.5-5.1 [facility] Comment on above: Performed By: #### L 3410.9999, L505.5000 #### [facility] [address] [place], [address] Sodium [Moles/Vol] 137 mmol/L Normal 136-145 [facility] Comment on above: Performed By: #### L 3410.9999, L505.5000 #### [facility] [address] [place], [address] Urea nitrogen [Mass/Vol] 17 mg/dL Normal 7-18 [facility] Comment on above: Performed By: #### L 3410.9999, L505.5000 #### [facility] [address] [place], [address] Basophil percentageOrdered B y: Yolanda Dean on 07-28-2024 Basophils/100 WBC (Bld) 0.8 % 0-1 [facility] Blood urea nitrogen (BUN)/cr eatinine ratioOrdered By: Yolanda Dean on 07-28-2024 Urea nitrogen/Creatinine [Mass ratio] 16.5 mg/mg 10-20 [facility] CBC W/Diff, Automatedon 11-2 Absolute Lymph 1.17 X10 3/uL Normal 0.83-4.51 [facility] Comment on above: Performed By: #### L 100.0100, L500.2500, L300.3900 #### [facility] [address] [place], [address] Absolute Neut 3.7 X10 3/uL Normal 2.0-7.7 [facility] Comment on above: Performed By: #### L 100.0100, L500.2500, L300.3900 #### [facility] [address] [place], [address] Basophils/100 WBC (Bld) 0.8 % Normal 0-1 [facility] Comment on above: Performed By: #### L 100.0100, L500.2500, L300.3900 #### [facility] [address] [place], [address] Eosinophils/100 WBC (Bld) 5.9 % High 0-5 [facility] Comment on above: Performed By: #### L 100.0100, L500.2500, L300.3900 #### [facility] [address] [place], [address] Erythrocyte distribution width (RBC) [Ratio] 12.6 % Normal 11.6-14.6 [facility] Comment on above: Performed By: #### L 100.0100, L500.2500, L300.3900 #### [facility] [address] [place], [address] Hematocrit (Bld) [Volume fraction] 38.2 % Low 40-54 [facility] Comment on above: Performed By: #### L 100.0100, L500.2500, L300.3900 #### [facility] [address] [place], [address] Hemoglobin (Bld) [Mass/Vol] 13.1 g/dL Normal 13.0-16. 5 [facility] Comment on above: Performed By: #### L 100.0100, L500.2500, L300.3900 #### [facility] [address] [place], [address] IG% 0.700 Normal 0.0-0.9 [facility] Comment on above: Result Comment: IG% - Immature Granulocytes (promyelocytes, myelocytes and metamyelocytes) > 1% indicates that a LEFT SHIFT is Present. Performed By: #### L 100.0100, L500.2500, L300.3900 #### [facility] [address] [place], [address] Lymphocytes/100 WBC (Bld) 19.8 % Normal 19-41 [facility] Comment on above: Performed By: #### L 100.0100, L500.2500, L300.3900 #### [facility] [address] [place], [address] MCH (RBC) [Entitic mass] 29.2 pg Normal 27.0-32.0 [facility] Comment on above: Performed By: #### L 100.0100, L500.2500, L300.3900 #### [facility] [address] [place], [address] MCHC (RBC) [Mass/Vol] 34.3 g/dL Normal 32-36 [facility] Comment on above: Performed By: #### L 100.0100, L500.2500, L300.3900 #### [facility] [address] [place], [address] MCV (RBC) [Entitic vol] 85.3 fL Normal 80-94 [facility] Comment on above: Performed By: #### L 100.0100, L500.2500, L300.3900 #### [facility] [address] [place], [address] Monocytes/100 WBC (Bld) 9.8 % Normal 0-10 [facility] Comment on above: Performed By: #### L 100.0100, L500.2500, L300.3900 #### [facility] [address] [place], [address] Neutrophils/100 WBC (Bld) 63.0 % Normal 47-70 [facility] Comment on above: Performed By: #### L 100.0100, L500.2500, L300.3900 #### [facility] [address] [place], [address] Nucleated RBC (Bld) [#/Vol] 0 10*3/uL Normal 0-5 [facility] Comment on above: Performed By: #### L 100.0100, L500.2500, L300.3900 #### [facility] [address] [place], [address] Platelet mean volume (Bld) [Entitic vol] 9.6 fL Normal 6.2-12.0 [facility] Comment on above: Performed By: #### L 100.0100, L500.2500, L300.3900 #### [facility] [address] [place], [address] Platelets (Bld) [#/Vol] 216 10*3/uL Normal 150-450 [facility] Comment on above: Performed By: #### L 100.0100, L500.2500, L300.3900 #### [facility] [address] [place], [address] RBC (Bld) [#/Vol] 4.48 10*6/uL Low 4.6-6.2 [facility] Comment on above: Performed By: #### L 100.0100, L500.2500, L300.3900 #### [facility] [address] [place], [address] RDW SD 38.9 fl Normal 35.1-43.9 [facility] Comment on above: Performed By: #### L 100.0100, L500.2500, L300.3900 #### [facility] [address] [place], [address] WBC (Bld) [#/Vol] 5.9 10*3/uL Normal 4.4-11.0 [facility] Comment on above: Performed By: #### L 100.0100, L500.2500, L300.3900 #### [facility] [address] [place], [address] Carbon dioxide measurementOr dered By: Yolanda Dean on 07-28-2024 CO2 [Moles/Vol] 24.0 mmol/L 21.0-32.0 [facility] Cardiology Visit Reporton Cardiology Visit Report [facility] [address] [place], [place] [address] OFFICE VISIT Date of Service: 07/28/24 MR#: [id number] Acct: [id number] Name: MICHAEL BATES Jr. Rep #: [id number] : 1955 Provider: CAMELIA Hurd Age/Sex: 69/M Location: [facility] Status: Signed HPI HPI History of [...] negative for ischemia. He was admitted to [facility] on October 09, 2023 with chest discomfort. [...] does sometimes feels that his heart will "stop" then go back to normal, it does [...] 97 Intake Visit Reasons: 3 M FU [facility] Laborer Required: No Is patient in pain?: No Allergies fludrocortisone (From Florinef) Allergy (Severe, Verified 07/28/24 08:11) ANGIOEDEMA losartan Adverse Reaction (Severe, Verified 07/28/24 08:11) Angioedema iodine Adverse Reaction (Verified 07/28/24 08:11) unknown perfume Adverse Reaction (Verified 07/28/24 08:11) Other Medications ???Medication ???Instructions ???Recorded ???Confirmed ???Type aspirin 81 mg tablet,delayed 81 mg PO DAILY@0800 heart health 09/13/13 07/28/24 History release omega 8-rtf-ngj-fish oil 1,000 mg 1,000 mg PO QDAY [...] supplement 0 (more content not included)... Normal [facility] Chest PA and Lateralon 07-28 Chest PA and Lateral [facility] Services [address] [place], [place] [address] Chest PA and Lateral MR#: [id number] Acct: [id number] Name: MICHAEL BATES Jr. Rep #: [id number] : 1955 M 69 From: Brijesh Patrick DO PCP: Dr. Nadir Grady MD Status: [facility] Study: Chest PA and Lateral Date of Exam: 07/28/24 Exam# [id number] Ordering Dr: Yolanda Dean PA [place] [id number] INDICATION: cath EXAMINATION/TECHNIQUE: X-RAY - XR Chest [...] Signed: Brijesh Patrick DO at 10:37 EST Reading Location ID and State: [facility] / [place] Tel [phone], Service support , CC: Dr. Nadir Grady MD; CAMELIA Julian Storage Consultant: Signed Normal [facility] Chloride measurementOrdered By: Yolanda Dean on 07-28-2024 Chloride [Moles/Vol] 107 mmol/L 98-107 [facility] Eosinophil percentageOrdered By: Yolanda Dean on 07-28-2024 Eosinophils/100 WBC (Bld) 5.9 % High 0-5 [facility] Erythrocyte distribution wid th ratioOrdered By: Yolanda Dean on 07-28-2024 Erythrocyte distribution width (RBC) [Ratio] 12.6 % 11.6-14.6 [facility] Erythrocyte distribution wid th standard deviationOrdered By: Yolanda Dean on 07-28-2024 Erythrocyte distribution width (RBC) [Entitic vol] 38.9 fL 35.1-43.9 [facility] Estimated glomerular filtrat ion rate (GFR) AmericanOrdered By: Yolanda Dean on 07-28-2024 Estimated GFR (MDRD) Amer 91 mL/min >60 [facility] Comment on above: GFR Calc Glomerular filtration rate ( GFR) estimationOrdered By: Yolanda Dean on 07-28-2024 Estimated GFR (MDRD) Non-Af Amer 76 mL/min >60 [facility] Comment on above: Non- GFR Calc Glucose measurementOrdered B y: Yolanda Dean on 07-28-2024 Glucose [Mass/Vol] 190 mg/dL High 74-106 [facility] Comment on above: Fasting Glucose resu lt greater than or equal to 126 mg/dL suggests DIABETES MELLITUS per A.D.A. criteria. Hematocrit Auto (Bld) [Volum e fraction]Ordered By: Yolanda Dean on 07-28-2024 Hematocrit (Bld) [Volume fraction] 38.2 % Low 40-54 [facility] Hemoglobin measurementOrdere d By: Yolanda Dean on 07-28-2024 Hemoglobin (Bld) [Mass/Vol] 13.1 g/dL 13.0-16. 5 [facility] Immature granulocytes/100 WB C Auto (Bld)Ordered By: Yolanda Dean on 07-28-2024 Immature granulocytes/100 WBC (Bld) 0.700 % 0.0-0.9 [facility] Comment on above: IG% - Immature Granu locytes (promyelocytes, myelocytes and metamyelocytes) > 1% indicates that a LEFT SHIFT is Present. International normalized rat io (INR) calculationOrdered By: Yolanda Dean on 07-28-2024 INR Coag (Bld) [Relative time] 0.9 {INR} [facility] Lymphocytes Auto (Unsp spec) [#/Vol]Ordered By: Yolanda Dean on 07-28-2024 Lymphocytes (Bld) [#/Vol] 1.17 10*3/uL 0.83-4.5 1 [facility] Lymphocytes/100 WBC Auto (Un sp spec)Ordered By: Yolanda Dean on 07-28-2024 Lymphocytes/100 WBC (Bld) 19.8 % 19-41 [facility] MCV (mean corpuscular volume ) determinationOrdered By: Yolanda Dean on 07-28-2024 MCV (RBC) [Entitic vol] 85.3 fL 80-94 [facility] Mean corpuscular hemoglobin (MCH) determinationOrdered By: Yolanda Dean on 07-28-2024 MCH (RBC) [Entitic mass] 29.2 pg 27.0-32.0 [facility] Mean corpuscular hemoglobin concentration (MCHC) determinationOrdered By: Yolanda Dean on 07-28-2024 MCHC (RBC) [Mass/Vol] 34.3 g/dL 32-36 [facility] Mean platelet volume determi nationOrdered By: Yolanda Dean on 07-28-2024 Platelet mean volume (Bld) [Entitic vol] 9.6 fL 6.2-12.0 [facility] Monocyte percentageOrdered B y: Yolanda Dean on 07-28-2024 Monocytes/100 WBC (Bld) 9.8 % 0-10 [facility] Neutrophil percentageOrdered By: Yolanda Dean on 07-28-2024 Neutrophils/100 WBC (Bld) 63.0 % 47-70 [facility] Nucleated red blood cell per centageOrdered By: Yolanda Dean on 07-28-2024 Nucleated RBC/100 WBC (Bld) [Ratio] 0 % 0-5 [facility] Platelet countOrdered By: Janette Dean on 07-28-2024 Platelets (Bld) [#/Vol] 216 10*3/uL 150-450 [facility] Potassium measurementOrdered By: Yolanda Dean on 07-28-2024 Potassium [Moles/Vol] 4.2 mmol/L 3.5-5.1 [facility] Prothrombin Time w/INRon INR Coag (PPP) [Relative time] 0.9 {INR} Normal [facility] Comment on above: Performed By: #### L 3410.9999, L505.5000 #### [facility] [address] [place], [address] PT Coag (PPP) [Time] 12.6 s Normal 11.7-14.9 [facility] Comment on above: Performed By: #### L 3410.9999, L505.5000 #### [facility] [address] [place], [address] Prothrombin timeOrdered By: Yolanda Dean on 07-28-2024 PT Coag (PPP) [Time] 12.6 s 11.7-14.9 [facility] RBC Auto (Bld) [#/Vol]Ordere d By: Yolanda Dean on 07-28-2024 RBC (Bld) [#/Vol] 4.48 10*6/uL Low 4.6-6.2 [facility] Serum anion gap measurementO rdered By: Yolanda Dean on 07-28-2024 Anion gap [Moles/Vol] 6 mmol/L 5-15 [facility] Serum or plasma calcium jaziel urement (mass/volume)Ordered By: Yolanda Dean on 07-28-2024 Calcium [Mass/Vol] 9.5 mg/dL 8.5-10.1 [facility] Serum or plasma creatinine m easurement (mass/volume)Ordered By: Yolanda Dean on 07-28-2024 Creatinine [Mass/Vol] 1.03 mg/dL 0.70-1.30 [facility] Comment on above: The validity of the calculated GFR & GFRAA in patients over 70 years has not been determined. Clinical correlation is essential. Serum or plasma urea nitroge n measurement (mass/volume)Ordered By: Yolanda Dean on 07-28-2024 Urea nitrogen [Mass/Vol] 17 mg/dL 7-18 [facility] Sodium levelOrdered By: Mariano Dean on 07-28-2024 Sodium [Moles/Vol] 137 mmol/L 136-145 [facility] White blood cell (WBC) count Ordered By: Yolanda Dean on 07-28-2024 WBC (Bld) [#/Vol] 5.9 10*3/uL 4.4-11.0 [facility] CNOVon 07-24-2024 CNOV Office Visit ([facility] ) MICHAEL BATES ([id number]) 1955 Date Time Provider Department 07/24/24 9:15 AM BRIDGET JOSEPH [facility] During your visit today, we recorded the following information about you: Temperature Pulse Respiration Blood pressure 97.7 degrees 80/minute 16/minute 124/64 Weight 81.9 kg Bridget Joseph APRN.CNP 07/24/2024 10:19 AM Signed This note was created using [employer]. Subjective Michael Bates is a 69 year [...] Fully Assessed Reason for Visit: Wrist/forearm Injury [1749] Cmt: right wrist pain x 1 day, fall Primary Visit Diagnosis:Wrist pain, right [M25.531] Order(s):XR WRIST GENERAL 3V PA/LAT/OBL RIGHT [[id number]] Order #: [id number] FUTURE Prescriptions as of 07/24/2024 - empagliflozin [...] 1 capsule by mouth once daily. Per [facility] - ranolazine ER (RANEXA) 1,000 mg tab ER 12 hr Take 1 tablet by mouth two times a day. Per [facility] - carvedilol (COREG) 3.125 mg [...] strain [S13.9XXA] 07/30/2010 08/30/2010 Other physical therapy [FYL6832] 08/16/2010 08/30/2010 Essential hypertension, benign [I10] 01/17/2012 DDD (degenerative disc disease), cervical [M50.*01/20/2012 Cervical spondylosis [M47.812] 01/20/2012 Chronic sinusitis [J32.9] Hyperlipidemia [E78.5] 08/04/2015 Mixed hyperli (more content not included)... Normal [facility] XR WRIST 3V PA/LAT/OBL RTon 07-24-2024 [...] radiographic abnormalities seen in the right wrist. Storage Consultant: PSCB Transcribe Date/Time: Jul 24 2024 10:00A Dictated by : JASSI NEWSOME MD This examination was interpreted and the report reviewed and electronically signed by: JASSI NEWSOME MD on Jul 24 2024 10:02AM EST [id number] Normal [facility] XR Wrist - right PA and Late ral and Obliqueon 07-24-2024 IMPRESSION: No acute radiographic abnormalities seen in the right wrist. Storage Consultant: FAWN Transcribe Date/Time: Jul 24 2024 10:00A Dictated by : JASSI NEWSOME MD This examination was interpreted and the report reviewed and electronically signed by: JASSI NEWSOME MD on Jul 24 2024 10:02AM EST DIVISION OF RADIOLOGY * * *Final [...] soft tissue swelling. DIVISION OF RADIOLOGY Provider, [facility] - 07/24/2024 * * *Final Report* * [...] radiographic abnormalities seen in the right wrist. Storage Consultant: FAWN Transcribe Date/Time: Jul 24 2024 10:00A Dictated by : JASSI NEWSOME MD This examination was interpreted and the report reviewed and electronically signed by: JASSI NEWSOME MD on Jul 24 2024 10:02AM EST [facility] Radiology Study observation (narrative) [facility] XR Wrist - right PA and Late ral and ObliqueOrdered By: Ccf Provider on 07-24-2024 [facility] CNPNon 07-21-2024 CNPN Telephone (FAMPWS) MICHAEL BATES ([id number]) 1955 M Date Time Provider Department 07/21/24 MARTHA BOSTON [facility] During your visit today, we [...] Order(s):ALK PHOS ISOENZYM BL [SQALKISO] Order #: [id number] FUTURE GGT [SQGGT] Order #: [id number] FUTURE empagliflozin (JARDIANCE) 10 mg tabletTake 1 [...] 1 tablet by mouth once daily. Per [facility] - atorvastatin (LIPITOR) 80 mg [...] strain [S13.9XXA] 07/30/2010 08/30/2010 Other physical therapy [BPH3366] 08/16/2010 08/30/2010 Essential hypertension, benign [I10] 01/17/2012 DDD (degenerative disc disease), cervical [M50.*01/20/2012 Cervical spondylosis [M47.812] 01/20/2012 Chronic sinusitis [J32.9] Hyperlipidemia [E78.5] 08/04/2015 Mixed hyperlipidemia [E78.2] 08/04/2015 Lumbar radiculopathy [M54.16] Chronic post-traumatic headache [G44.329] 08/04/2015 Bilateral occipital neuralgia [M54.81] 08/04/2015 Seborrheic dermatitis [L21.9] 08/04/2015 Elevated LFTs [R79.89] 08/05/2015 Carotid stenos (more content not included)... Normal [facility] CBC W Auto Differential pane l (Bld)on 07-20-2024 Basophils (Bld) [#/Vol] 0.06 10*3/uL Normal <0.11 [facility] Comment on above: Order Comment: Speci men Type: BLOOD SPECIMENOrdering Facility: [facility] Address: [address] [place] [address] Performed By: #### 5 7021-8 ####[facility] LABCLIA [id number] [place] [address] [place] Basophils/100 WBC (Bld) 0.9 % Normal [facility] Comment on above: Order Comment: Speci men Type: BLOOD SPECIMENOrdering Facility: [facility] Address: [address] [place] [address] Performed By: #### 5 7021-8 ####[facility] LABCLIA [id number] [place] [address] [place] Differential cell count method Nom (Bld) Auto Normal [facility] Comment on above: Order Comment: Speci men Type: BLOOD SPECIMENOrdering Facility: [facility] Address: [address] [place] [address] Performed By: #### 5 7021-8 ####[facility] LABCLIA [id number] [place] [address] [place] Eosinophils (Bld) [#/Vol] 0.25 10*3/uL Normal <0.46 [facility] Comment on above: Order Comment: Speci men Type: BLOOD SPECIMENOrdering Facility: [facility] Address: [address] [place] [address] Performed By: #### 5 7021-8 ####[facility] LABCLIA [id number] [place] [address] [place] Eosinophils/100 WBC (Bld) 3.6 % Normal [facility] Comment on above: Order Comment: Speci men Type: BLOOD SPECIMENOrdering Facility: [facility] Address: [address] [place] [address] Performed By: #### 5 7021-8 ####[facility] LABCLIA [id number] [place] [address] [place] Erythrocyte distribution width (RBC) [Ratio] 12.6 % Normal 11.5-15.0 [facility] Comment on above: Order Comment: Speci men Type: BLOOD SPECIMENOrdering Facility: [facility] Address: [address] [place] [address] Performed By: #### 5 7021-8 ####[facility] LABCLIA [id number] [place] [address] [place] Hematocrit (Bld) [Volume fraction] 40.5 % Normal 39.0-51.0 [facility] Comment on above: Order Comment: Speci men Type: BLOOD SPECIMENOrdering Facility: [facility] Address: [address] [place] [address] Performed By: #### 5 7021-8 ####[facility] LABCLIA [id number] [place] [address] [place] Hemoglobin (Bld) [Mass/Vol] 13.3 g/dL Normal 13.0-17. 0 [facility] Comment on above: Order Comment: Speci men Type: BLOOD SPECIMENOrdering Facility: [facility] Address: [address] [place] [address] Performed By: #### 5 7021-8 ####[facility] LABCLIA [id number] [place] [address] [place] Immature granulocytes (Bld) [#/Vol] 10*3/uL Normal <0.10 [facility] Comment on above: Order Comment: Speci men Type: BLOOD SPECIMENOrdering Facility: [facility] Address: [address] [place] [address] Performed By: #### 5 7021-8 ####[facility] LABCLIA [id number] [place] [address] [place] Immature granulocytes/100 WBC (Bld) 0.3 % Normal [facility] Comment on above: Order Comment: Speci men Type: BLOOD SPECIMENOrdering Facility: [facility] Address: [address] [place] [address] Performed By: #### 5 7021-8 ####[facility] LABCLIA [id number] [place] [address] [place] Lymphocytes (Bld) [#/Vol] 1.06 10*3/uL Normal 1.00-4.0 0 [facility] Comment on above: Order Comment: Speci men Type: BLOOD SPECIMENOrdering Facility: [facility] Address: [address] [place] [address] Performed By: #### 5 7021-8 ####[facility] LABCLIA [id number] [place] [address] [place] Lymphocytes/100 WBC (Bld) 15.3 % Normal [facility] Comment on above: Order Comment: Speci men Type: BLOOD SPECIMENOrdering Facility: [facility] Address: [address] [place] [address] Performed By: #### 5 7021-8 ####[facility] LABCLIA [id number] [place] [address] [place] MCH (RBC) [Entitic mass] 28.4 pg Normal 26.0-34.0 [facility] Comment on above: Order Comment: Speci men Type: BLOOD SPECIMENOrdering Facility: [facility] Address: [address] [place], [place] [address] Performed By: #### 5 7021-8 ####[facility] LABCLIA [id number] [place] [address] [place] MCHC (RBC) [Mass/Vol] 32.8 g/dL Normal 30.5-36.0 [facility] Comment on above: Order Comment: Speci men Type: BLOOD SPECIMENOrdering Facility: [facility] Address: [address] [place] [address] Performed By: #### 5 7021-8 ####[facility] LABCLIA [id number] [place] [address] [place] MCV (RBC) [Entitic vol] 86.5 fL Normal 80.0-100.0 [facility] Comment on above: Order Comment: Speci men Type: BLOOD SPECIMENOrdering Facility: [facility] Address: [address] [place] [address] Performed By: #### 5 7021-8 ####[facility] LABCLIA [id number] [place] [address] [place] Monocytes (Bld) [#/Vol] 0.57 10*3/uL Normal <0.87 [facility] Comment on above: Order Comment: Speci men Type: BLOOD SPECIMENOrdering Facility: [facility] Address: [address] [place] [address] Performed By: #### 5 7021-8 ####[facility] LABCLIA [id number] [place] [address] [place] Monocytes/100 WBC (Bld) 8.2 % Normal C [facility] Comment on above: Order Comment: Speci men Type: BLOOD SPECIMENOrdering Facility: [facility] Address: [address] [place] [address] Performed By: #### 5 7021-8 ####[facility] LABCLIA [id number] [place] [address] [place] Neutrophils (Bld) [#/Vol] 4.96 10*3/uL Normal 1.45-7.5 0 [facility] Comment on above: Order Comment: Speci men Type: BLOOD SPECIMENOrdering Facility: [facility] Address: [address] [place] [address] Performed By: #### 5 7021-8 ####[facility] LABCLIA [id number] [place] [address] [place] Neutrophils/100 WBC (Bld) 71.7 % Normal [facility] Comment on above: Order Comment: Speci men Type: BLOOD SPECIMENOrdering Facility: [facility] Address: [address] [place] [address] Performed By: #### 5 7021-8 ####[facility] LABCLIA [id number] [place] [address] [place] Nucleated RBC (Bld) [#/Vol] 10*3/uL Normal <0.01 [facility] Comment on above: Order Comment: Speci men Type: BLOOD SPECIMENOrdering Facility: [facility] Address: [address] [place] [address] Performed By: #### 5 7021-8 ####[facility] LABCLIA [id number] [place] [address] [place] Nucleated RBC/100 WBC (Bld) [Ratio] 0.0 /100 WBC Normal [facility] Comment on above: Order Comment: Speci men Type: BLOOD SPECIMENOrdering Facility: [facility] Address: [address] [place] [address] Performed By: #### 5 7021-8 ####[facility] LABCLIA [id number] [place] [address] [place] Platelet mean volume (Bld) [Entitic vol] 9.9 fL Normal 9.0-12.7 [facility] Comment on above: Order Comment: Speci men Type: BLOOD SPECIMENOrdering Facility: [facility] Address: [address] [place] [address] Performed By: #### 5 7021-8 ####[facility] LABCLIA [id number] [place] [address] [place] Platelets (Bld) [#/Vol] 218 10*3/uL Normal 150-400 [facility] Comment on above: Order Comment: Speci men Type: BLOOD SPECIMENOrdering Facility: [facility] Address: [address] [place] [address] Performed By: #### 5 7021-8 ####[facility] LABCLIA [id number] [place] [address] [place] RBC (Bld) [#/Vol] 4.68 10*6/uL Normal 4.20-6.00 [facility] Comment on above: Order Comment: Speci men Type: BLOOD SPECIMENOrdering Facility: [facility] Address: [address] [place] [address] Performed By: #### 5 7021-8 ####[facility] LABIA [id number] [place] [address] [place] WBC (Bld) [#/Vol] 6.92 10*3/uL Normal 3.70-11.00 [facility] Comment on above: Order Comment: Speci men Type: BLOOD SPECIMENOrdering Facility: [facility] Address: [address] [place] [address] Performed By: #### 5 7021-8 ####[facility] LABIA [id number] [place] [address] [place] CNOVon 07-20-2024 [facility] MICHAEL BATES ([id number]) 1955 M Date Time Provider Department 07/20/24 7:20 AM [facility]OST[facility] During your visit today, we recorded the [...] ?F) Resp 16 Ht 174.8 cm (5' 8.8") Wt 77.6 kg (171 lb) SpO2 97% [...] Multi level, worse L2-L3 Diabetes ([facility]) Diabetic eye exam ([facility]) 03/19/2017 Last done: 10/01/2018 Elevated LFTs 08/05/2015 [...] ulnar artery (more content not included)... Normal [facility] Comprehensive metabolic 2000 panelon 07-20-2024 Albumin [Mass/Vol] 4.9 g/dL Normal 3.9-4.9 [facility] Comment on above: Order Comment: Speci men Type: BLOOD SPECIMENOrdering Facility: [facility] Address: [address] [place] [address] Performed By: #### 5 0190-8, LIPNF, 3016-3, 47877-7 ####[facility] LABCLIA [id number] [place] [address] [place] ALP [Catalytic activity/Vol] 144 U/L High 38-113 [facility] Comment on above: Order Comment: Speci men Type: BLOOD SPECIMENOrdering Facility: [facility] Address: [address] [place] [address] Performed By: #### 5 0190-8, LIPNF, 3016-3, 95242-5 ####[facility] LABCLIA [id number] [place] [address] [place] ALT [Catalytic activity/Vol] 19 U/L Normal 10-54 [facility] Comment on above: Order Comment: Speci men Type: BLOOD SPECIMENOrdering Facility: [facility] Address: [address] [place] [address] Performed By: #### 5 0190-8, LIPNF, 3016-3, 26696-2 ####[facility] LABCLIA [id number] [place] [address] [place] Anion gap [Moles/Vol] 14 mmol/L Normal 8-15 [facility] Comment on above: Order Comment: Speci men Type: BLOOD SPECIMENOrdering Facility: [facility] Address: [address] [place] [address] Performed By: #### 5 0190-8, LIPNF, 3016-3, 05296-7 ####[facility] LABCLIA [id number] [address] [address] [place] AST [Catalytic activity/Vol] 16 U/L Normal 14-40 [facility] Comment on above: Order Comment: Speci men Type: BLOOD SPECIMENOrdering Facility: [facility] Address: [address] [place] [address] Performed By: #### 5 0190-8, LIPNF, 3016-3, 03008-0 ####[facility] LABCLIA [id number] [place] [address] [place] Bilirubin [Mass/Vol] 0.6 mg/dL Normal 0.2-1.3 [facility] Comment on above: Order Comment: Speci men Type: BLOOD SPECIMENOrdering Facility: [facility] Address: [address] [place] [address] Performed By: #### 5 0190-8, LIPNF, 3015-3, 71601-5 ####[facility] LABCLIA [id number] [place] [address] [place] Calcium [Mass/Vol] 9.6 mg/dL Normal 8.5-10.2 [facility] Comment on above: Order Comment: Speci men Type: BLOOD SPECIMENOrdering Facility: [facility] Address: [address] [place] [address] Performed By: #### 5 0190-8, LIPNF, 3016-3, 90101-6 ####[facility] LABCLIA [id number] [place] [id number] [place] Chloride [Moles/Vol] 98 mmol/L Normal 98-107 [facility] Comment on above: Order Comment: Speci men Type: BLOOD SPECIMENOrdering Facility: [facility] Address: [address] [place] [address] Performed By: #### 5 0190-8, LIPNF, 3015-3, 15289-5 ####[facility] LABCLIA [id number] [place] [address] [place] CO2 [Moles/Vol] 23 mmol/L Normal 22-30 [facility] Comment on above: Order Comment: Speci men Type: BLOOD SPECIMENOrdering Facility: [facility] Address: [address] [place] [address] Performed By: #### 5 0190-8, LIPNF, 3015-3, 97417-2 ####[facility] LABCLIA [id number] [place] [address] [place] Creatinine [Mass/Vol] 0.90 mg/dL Normal 0.73-1.22 [facility] Comment on above: Order Comment: Speci men Type: BLOOD SPECIMENOrdering Facility: [facility] Address: [address] [place] [address] Performed By: #### 5 0190-8, LIPNF, 3015-10, ####[facility] LABCLIA [id number] [place] [address] [place] Creatinine and Glomerular filtration rate.predicted panel (S/P/Bld) 91 mL/min/1.73m??? Normal >=60 [facility] Comment on above: Order Comment: Speci men Type: BLOOD SPECIMENOrdering Facility: [facility] Address: [address] [place] [address] Result Comment: Abril mated Glomerular Filtration Rate [...] GFR. Performed By: #### 5 0190-8, LIPNF, 6-3, 12956-8 ####[facility] LABCLIA [id number] [place] [address] [place] Glucose [Mass/Vol] 253 mg/dL High 74-99 [facility] Comment on above: Order Comment: Speci men Type: BLOOD SPECIMENOrdering Facility: [facility] Address: [address] [place] [address] Result Comment: The [place] Diabetes Association (ADA) provides guidance for cutoff [...] Standards of Medical Care in Diabetes 2016, [place] Diabetes Association. Diabetes Care. 2016.39(Suppl 1). Performed By: #### 5 0190-8, LIPNF, 3016-3, 51864-0 ####[facility] LABIA [id number] [place] [address] [place] Potassium [Moles/Vol] 4.2 mmol/L Normal 3.7-5.1 [facility] Comment on above: Order Comment: Speci men Type: BLOOD SPECIMENOrdering Facility: [facility] Address: [address] [place] [address] Performed By: #### 5 0190-8, LIPNF, 3016-3, 50892-8 ####[facility] LABIA [id number] [place] [address] [place] Protein [Mass/Vol] 7.8 g/dL Normal 6.3-8.0 [facility] Comment on above: Order Comment: Speci men Type: BLOOD SPECIMENOrdering Facility: [facility] Address: [address] [place] [address] Performed By: #### 5 0190-8, LIPNF, 3016-3, 90807-7 ####[facility] LABIA [id number] [place] [id number] [place] Sodium [Moles/Vol] 135 mmol/L Low 136-144 [facility] Comment on above: Order Comment: Speci men Type: BLOOD SPECIMENOrdering Facility: [facility] Address: [address] [place] [address] Performed By: #### 5 0190-8, LIPNF, 3016-3, 92335-1 ####[facility] LABIA [id number] [place] [address] [place] Urea nitrogen [Mass/Vol] 14 mg/dL Normal 9-24 [facility] Comment on above: Order Comment: Speci men Type: BLOOD SPECIMENOrdering Facility: [facility] Address: [address] [place] [address] Performed By: #### 5 0190-8, LIPNF, 3016-3, 90876-3 ####[facility] [id number] [place] [address] [place] HbA1c (Bld)on 07-20-2024 Average glucose Estimated from glycated hemoglobin (Bld) [Mass/Vol] 220 mg/dL Normal [facility] Comment on above: Order Comment: Speci men Type: BLOOD SPECIMENOrdering Facility: [facility] Address: [address] [place] [address] Result Comment: eAG: (Estimated average glucose) is a calculated value from HgbA1c and is vaccine customer representative of the average blood glucose level in the last 2-3 month period. Performed By: #### 5 5454-3 ####[facility] LABIA [id number] [place] [address] [place] HbA1c (Bld) [Mass fraction] 9.3 % High 4.3-5.6 [facility] Comment on above: Order Comment: Speci men Type: BLOOD SPECIMENOrdering Facility: [facility] Address: [address] [place] [address] Result Comment: Amer [place] Diabetes Association guidelines indicate that patients with HgbA1c in the range 5.7-6.4% are at increased risk for development of diabetes, and intervention by lifestyle modification may be beneficial. HgbA1c greater or equal to 6.5% is considered diagnostic of diabetes. Performed By: #### 5 5454-3 ####[facility] LABCLIA [id number] [place] [address] [place] Iron and Iron binding capaci ty panelon 07-20-2024 Iron [Mass/Vol] 79 ug/dL Normal 41-186 [facility] Comment on above: Order Comment: Speci men Type: BLOOD SPECIMENOrdering Facility: [facility] Address: [address] [place] [address] Performed By: #### 5 0190-8, LIPNF, 3015-3, 81174-1 ####[facility] LABCLIA [id number] [place] [address] [place] Iron binding capacity [Mass/Vol] 372 ug/dL Normal 232-386 [facility] Comment on above: Order Comment: Speci men Type: BLOOD SPECIMENOrdering Facility: [facility] Address: [address] [place] [address] Performed By: #### 5 0190-8, LIPNF, 3015-3, 75719-2 ####[facility] LABCLIA [id number] [place] Iron/TIBC [Molar ratio] 21.2 % Normal 15.0-57.0 [facility] Comment on above: Order Comment: Speci men Type: BLOOD SPECIMENOrdering Facility: [facility] Address: [address] [place] [address] Performed By: #### 5 0190-8, LIPNF, 3016-3, 97693-1 ####[facility] LABCLIA [id number] [address] [place] LIPID PANEL, NONFASTINGon Cholesterol [Mass/Vol] 114 mg/dL Normal <200 [facility] Comment on above: Order Comment: Speci men Type: BLOOD SPECIMENOrdering Facility: [facility] Address: [address] [place] [address] Result Comment: <200 mg/dL, Desirable 200-239 mg/dL, Borderline high >239 mg/dL, High Performed By: #### 5 0190-8, LIPNF, 3016-3, 32232-0 ####[facility] LABCLIA [id number] [place] [address] [place] HDL CHOLESTEROL, NF 43 mg/dL Normal >39 [facility] Comment on above: Order Comment: Nuhai men Type: BLOOD SPECIMENOrdering Facility: [facility] Address: [address] [place] [address] Result Comment: 40-5 9 mg/dL, Acceptable >59 mg/dL, High: Negative risk factor for coronary heart disease <40 mg/dL, Low: Positive risk factor for coronary heart disease Performed By: #### 5 0190-8, LIPNF, 301-3, 19728-4 ####[facility] LABCLIA [id number] [place] [address] [place] LDL CHOLESTEROL, NF 56 mg/dL Normal <100 [facility] Comment on above: Order Comment: Speci men Type: BLOOD SPECIMENOrdering Facility: [facility] Address: [address] [place] [address] Result Comment: <100 mg/dL, Optimal 100-129 mg/dL, Near optimal/above optimal 130-159 mg/dL, Borderline high 160-189 mg/dL, High >189 mg/dL, Very high Secondary prevention optimal LDL Cholesterol levels are recommended to be < 70 mg/dL Performed By: #### 5 0190-8, LIPNF, 3016-3, 54493-2 ####[facility] LABCLIA [id number] [place] [address] [place] LDL/HDL RATIO, NF 1.30 mg/dL Normal <2.54 [facility] Comment on above: Order Comment: Walter carlie Type: BLOOD SPECIMENOrdering Facility: [facility] Address: [address] [place] [address] Result Comment: Zana issa: 1. National Cholesterol Education Program ATP III Guideline At-A-Glance Quick Desk Reference: National Heart, Lung, and Blood [place]. National Institutes of Health. 2001: NIH Publication No. 01-3305. 2. An International Atherosclerosis Society position paper: global recommendations for the management of dyslipidemia: executive summary, Atherosclerosis. 2014: 232(2):410-413. Performed By: #### 5 0190-8, LIPNF, 3015-3, 30524-8 ####[facility] LABCLIA [id number] [address] [place] NON HDL CHOL, NF 71 mg/dL Normal <130 [facility] Comment on above: Order Comment: Walter carlie Type: BLOOD SPECIMENOrdering Facility: [facility] Address: [address] [place] [address] Result Comment: <130 mg/dL, Optimal 130-159 mg/dL, Near optimal/above optimal 160-189 mg/dL, Borderline high 190-219 mg/dL, High >219 mg/dL, Very high Secondary prevention optimal non HDL Cholesterol levels are recommended to be <100 mg/dL Performed By: #### 5 0190-8, LIPNF, 3015-3, 32245-1 ####[facility] LABCLIA [id number] [address] [place] T CHOL/HDL RATIO NF 2.65 mg/dL Normal <5.10 [facility] Comment on above: Order Comment: Nuhakati sexton Type: BLOOD SPECIMENOrdering Facility: [facility] Address: [address] [place] [address] Performed By: #### 5 0190-8, LIPNF, 3015-3, 50995-0 ####[facility] LABCLIA [id number] [place] [address] [place] TRIGLYCERIDES, NF 73 mg/dL Normal <150 [facility] Comment on above: Order Comment: Speci men Type: BLOOD SPECIMENOrdering Facility: [facility] Address: [address] [place] [address] Result Comment: <150 mg/dL, Normal 150-199 mg/dL, Borderline high 200-499 mg/dL, High >499 mg/dL, Very high Performed By: #### 5 0190-8, LIPNF, 3016-3, 41241-8 ####[facility] LABCLIA [id number] [place] [address] [place] VLDL CHOLESTEROL, NF 15 mg/dL Normal <30 [facility] Comment on above: Order Comment: Speci men Type: BLOOD SPECIMENOrdering Facility: [facility] Address: [address] [place] [address] Performed By: #### 5 0190-8, LIPNF, 3016-3, 25648-5 ####[facility] LABCLIA [id number] [place] [address] [place] TSH SerPl-aCncon 07-20-2024 TSH Qn 3.090 m[IU]/L Normal 0.270-4.20 0 [facility] Comment on above: Order Comment: Speci men Type: BLOOD SPECIMENOrdering Facility: [facility] Address: [address] [place] [address] Performed By: #### 5 0190-8, LIPNF, 3016-3, 21567-5 ####[facility] LABCLIA [id number] [place] [address] [place] 12 Lead EKG performed by BRISA on 05-28-2024 12 Lead EKG performed by BRISA [facility] [address] [place] [address] 12 Lead EKG performed [place] [facility] 05/28/24 0859 MR#: [id number] Acct: [id number] Name: MICHAEL BATES Jr. Rep #: [id number] : 1955 69 From: Yolanda Ye Attending Dr: Azul Cornell Status: DEP AMB Ordering Dr: Yolanda Dean Date: 05/03 03/24 [place] [facility] Sex: M C Ad[place] [facility]12 Lead EKG performed [place] [facility] ECG Report Interpretation ----Sinus Rhythm WITHIN NORMAL LIMITSElectronically signed on 06/08/2024 at 09:49 by Jd Kern Software Version [id number] 06/08/2453 Date Yolanda DENISE CC: Dr. Nadir Grady MD Date Dictated: 05/28/24858 Date Transcribed: 05/28/24858 Storage Consultant: SHAHEEN Signed Normal [facility] Office Visit Reporton 2023 Office Visit Report [facility] [address] [place] [address] OFFICE VISIT Date of Service: 05/28/24 MR#: [id number] Acct: [id number] Patient: MICHAEL BATES Jr. Rep #: [id number] : 1955 Provider: Azul Cornell Age/Sex: 69/M [place] [facility] Status: Signed Intake Vital Signs 04/19/24 08:17 05/28/24 09:00 Height 5 ft 10 in Weight: 177 lb BMI 25.4 BP 144/67 H 139/63 H Blood Pressure Location Lt brachial Lt brachial Position Sitting Sitting Respiration 18 16 Pulse 68 73 Pulse Source Monitor NIBP Pulse Oximetry (%) 97 96 Oxygen Delivery Method room air Intake Visit Reasons: Dizziness (cardiology) Chief Complaint: Dizzy, fatigue [employer] Lab[employer] Required: No Is patient in pain?: Yes [...] heart health 09/13/13 05/28/24 History release omega 2-fpj-pvx-fish oil 1,000 mg 1,000 mg PO QDAY [...] Today 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 [place] [address] OFFICE VISIT Date of Service: 04/19/24 MR#: [id number] Acct: [id number] Name: MICHAEL BATES Jr. Rep #: [id number] : 1955 Provider: CAMELIA Hurd Age/Sex: 69/M [place] [facility] Status: Signed HPI HPI History of [...] negative for ischemia. He was admitted to [facility] on October 09, 2023 with chest discomfort. 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 Is patient in pain?: No Allergies fludrocortisone (From Florinef) Allergy (Severe, Verified 04/19/24 08:17) ANGIOEDEMA losartan Adverse Reaction (Severe, Verified 04/19/24 08:17) Angioedema iodine Adverse Reaction (Verified 04/19/24 08:17) unknown perfume Adverse Reaction (Verified 04/19/24 08:17) Other Medications ???Medication ???Instructions ???Recorded ???Confirmed ???Type aspirin 81 mg tablet,delayed 81 mg PO DAILY@0800 heart health 09/13/13 04/19/24 History release omega 6-idj-cuy-fish oil 1,000 mg 1,000 mg PO QDAY supplement 01/06/18 04/19/24 History (120 mg-180 mg) capsule (Fish Oil) metformin 500 mg tablet,extended 1,000 mg PO BID diabetes 07/25/20 04/19/24 History release 24 hr ferrous sulfate 325 mg (65 mg 325 mg PO BID supplement 06/28/22 04/19/24 History iron) tablet (more content not included)... Normal [facility] No Panel Informationon 12-21 IMPRESSION: No acute osseous abnormality Storage Consultant: FAWN Transcribe Date/Time: Dec 22 2023 9:40A Dictated by : LIZA ARDON MD This examination was interpreted and the report reviewed and electronically signed by: LIZA ARDON MD on Dec 22 2023 9:43AM [facility] DIVISION OF RADIOLOGY Radiology Study observation (narrative) [facility] No Panel InformationOrdered By: Ccf Provider on 12-22-2023 [facility] XR Hand - left PA and Latera [...] AP/LAT LT -- LEFT with 3 (accession [id number]), 2 (accession [id number]) views on 3 (accession [id number]), 2 (accession [id number]) images Comparison: None RESULT: Left forearm: No acute fracture or dislocation. Joint spaces are maintained. Left hand: No acute fracture or dislocation. Joint spaces are maintained. DIVISION OF RADIOLOGY Provider, [facility] - 12/22/2023 * * *Final Report* * [...] AP/LAT LT -- LEFT with 3 (accession [id number]), 2 (accession [id number]) views on 3 (accession [id number]), 2 (accession [id number]) images Comparison: None RESULT: Left forearm: No acute fracture or dislocation. Joint spaces are maintained. Left hand: No acute fracture or dislocation. Joint spaces are maintained. IMPRESSION IMPRESSION: No acute osseous abnormality Storage Consultant: FAWN Transcribe Date/Time: Dec 22 2023 9:40A Dictated by : LIZA ARDON MD This examination was interpreted and the report reviewed and electronically signed by: LIZA ARDON MD on Dec 22 2023 9:43AM [facility] XR Radius and Ulna - [...] AP/LAT LT -- LEFT with 3 (accession [id number]), 2 (accession [id number]) views on 3 (accession [id number]), 2 (accession [id number]) images Comparison: None RESULT: Left forearm: No acute fracture or dislocation. Joint spaces are maintained. Left hand: No acute fracture or dislocation. Joint spaces are maintained. DIVISION OF RADIOLOGY Provider, [facility] - 12/22/2023 * * *Final Report* * [...] AP/LAT LT -- LEFT with 3 (accession [id number]), 2 (accession [id number]) views on 3 (accession [id number]), 2 (accession [id number]) images Comparison: None RESULT: Left forearm: No acute fracture or dislocation. Joint spaces are maintained. Left hand: No acute fracture or dislocation. Joint spaces are maintained. IMPRESSION IMPRESSION: No acute osseous abnormality Storage Consultant: PSCB Transcribe Date/Time: Dec 22 2023 9:40A Dictated by : LIZA ARDON MD This examination was interpreted and the report reviewed and electronically signed by: LIZA ARDON MD on Dec 22 2023 9:43AM EST [facility] Absolute lymphocyte countOrd ered By: Gildardo Walton on 12-04-2023 Lymphocytes Auto (Unsp spec) [#/Vol] 1.03 10*3/uL 0.83-4.51 [facility] Automated lymphocyte count a s percentage of total leukocytesOrdered By: Gildardo Walton on 12-04-2023 Lymphocytes/100 WBC Auto (Unsp spec) 20.3 % 19-41 [facility] Basophil percentageOrdered B y: Gildardo Walton on 12-04-2023 Basophils/100 WBC (Bld) 0.8 % 0-1 [facility] Chloride [Moles/Vol] 106 mmol/L 98-107 [facility] Cholesterol [Mass/Vol] 133 mg/dL <200 [facility] Comment on above: <200 mg/dL Desirable 200-240 mg/dL Borderline >240 mg/dL High Risk Eosinophils/100 WBC (Bld) 4.3 % 0-5 [facility] Glucose [Mass/Vol] 167 mg/dL 74-106 [facility] Comment on above: Fasting Glucose resu lt greater than or equal to 126 mg/dL suggests DIABETES MELLITUS per A.D.A. criteria. Hemoglobin (Bld) [Mass/Vol] 11.7 g/dL 13.0-16. 5 [facility] Monocytes/100 WBC (Bld) 10.3 % 0-10 [facility] Neutrophils (Bld) [#/Vol] 3.2 10*3/uL 2.0-7.7 [facility] Neutrophils/100 WBC (Bld) 63.9 % 47-70 [facility] Potassium [Moles/Vol] 3.9 mmol/L 3.5-5.1 [facility] Sodium [Moles/Vol] 137 mmol/L 136-145 [facility] Triglyceride [Mass/Vol] 168 mg/dL <199 [facility] Comment on above: The drugs N-Acetylcy steine and Metamizole may falsely depress this assay.Serum Triglycerides Reference Interval Normal <150 mg/dL Borderline high 150 - 199 mg/dL High 200 - 499 mg/dL Very High > or = 500 mg/dL WBC (Bld) [#/Vol] 5.1 10*3/uL 4.4-11.0 [facility] Determination of erythrocyte mean corpuscular volume (MCV)Ordered By: Gildardo Walton on 12-04-2023 MCV (RBC) [Entitic vol] 87.7 fL 80-94 [facility] Erythrocyte distribution wid th ratioOrdered By: Gildardoisabell Walton on 12-04-2023 Erythrocyte distribution width (RBC) [Ratio] 12.5 % 11.6-14.6 [facility] Erythrocyte distribution wid th standard deviationOrdered By: Gildardo Walton on 12-04-2023 Erythrocyte distribution width (RBC) [Entitic vol] 40.1 fL 35.1-43.9 [facility] Hematocrit Auto (Bld) [Volum e fraction]Ordered By: Gildardo Walton on 12-04-2023 Hematocrit (Bld) [Volume fraction] 34.9 % 40-54 [facility] Immature granulocytes/100 WB C Auto (Bld)Ordered By: Gildardo Walton on 12-04-2023 Immature granulocytes/100 WBC (Bld) 0.400 % 0.0-0.9 [facility] Comment on above: IG% - Immature Granu locytes (promyelocytes, myelocytes and metamyelocytes) > 1% indicates that a LEFT SHIFT is Present. Laboratory - Chemistry and C hemistry - challengeOrdered By: Gildardo Walton on 12-04-2023 Cholesterol in HDL [Mass/Vol] 50 mg/dL >40 [facility] Comment on above: The drugs N-Acetylcy steine and Metamizole may falsely depress this assay. Reference Range HDL <40 mg/dL Low HDL Cholesterol HDL >or= 60 mg/dL High HDL Cholesterol Cholesterol in LDL [Mass/Vol] 49 mg/dL 0-130 [facility] CO2 [Moles/Vol] 25.0 mmol/L 21.0-32.0 [facility] Urea nitrogen/Creatinine [Mass ratio] 15.7 mg/mg 10-20 [facility] Laboratory - Hematology and Cell countsOrdered By: Gildardo Walton on 12-04-2023 MCH (RBC) [Entitic mass] 29.4 pg 27.0-32.0 [facility] MCHC (RBC) [Mass/Vol] 33.5 g/dL 32-36 [facility] Nucleated RBC/100 WBC (Bld) [Ratio] 0 % 0-5 [facility] Platelet mean volume (Bld) [Entitic vol] 9.1 fL 6.2-12.0 [facility] Platelets (Bld) [#/Vol] 187 10*3/uL 150-450 [facility] No Panel InformationOrdered By: Gildardo Walton on 12-04-2023 Estimated Creatinine Clearance Calc 73.93 ml/min [facility] Estimated GFR (MDRD) Amer 100 mL/min >60 [facility] Comment on above: GFR Calc Estimated GFR (MDRD) Non-Af Amer 83 mL/min >60 [facility] Comment on above: Non- GFR Calc VLDL Cholesterol 34 mg/dL 5-40 [facility] RBC Auto (Bld) [#/Vol]Ordere d By: Gildardo Walton on 12-04-2023 RBC (Bld) [#/Vol] 3.98 10*6/uL 4.6-6.2 [facility] Serum or plasma calcium jaziel urement (mass/volume)Ordered By: Gildardo Walton on 12-04-2023 Calcium [Mass/Vol] 9.0 mg/dL 8.5-10.1 [facility] Serum or plasma creatinine m easurement (mass/volume)Ordered By: Gildardo Walton on 12-04-2023 Creatinine [Mass/Vol] 0.96 mg/dL 0.70-1.30 [facility] Comment on above: The validity of the calculated GFR & GFRAA in patients over 70 years has not been determined. Clinical correlation is essential. Serum or plasma thyroid stim ulating hormone (TSH) measurement (units/volume)Ordered By: Gildardo Walton on 12-04-2023 TSH Qn 3.38 uIU/mL 0.358-3.74 [facility] Serum or plasma urea nitroge n measurement (mass/volume)Ordered By: Gildardo Walton on 12-04-2023 Urea nitrogen [Mass/Vol] 15 mg/dL 7-18 [facility] Thin prep Papanicolaou smear with manual screeningOrdered By: Martina Cr on 12-04-2023 Thin prep Papanicolaou smear with manual screening 195 mg/dL 74-106 [facility] Comment on above: MANAGEMENT OF PATIEN T CARE PER NURSING PROTOCOL Thin prep Papanicolaou smear with manual screeningOrdered By: Gildardo Walton on 12-04-2023 Thin prep Papanicolaou smear with manual screening 6 5-15 [facility] Absolute lymphocyte countOrd ered By: Jered Huff on 12-03-2023 Lymphocytes Auto (Unsp spec) [#/Vol] 0.90 10*3/uL 0.83-4.51 [facility] Activated partial thrombopla stin time (aPTT) in platelet poor plasma by coagulation aOrdered By: Jered Huff on 12-03-2023 aPTT Coag (PPP) [Time] 27.7 s 24.1-36.2 [facility] Automated lymphocyte count a s percentage of total leukocytesOrdered By: Jered Huff on 12-03-2023 Lymphocytes/100 WBC Auto (Unsp spec) 19.4 % 19-41 [facility] Basophil percentageOrdered B y: Gildardo Walton on 12-03-2023 Basophil percentage 0 SEEN /hpf 0-5 [facility] Basophil percentageOrdered B y: Jered Huff on 12-03-2023 Basophils/100 WBC (Bld) 0.9 % 0-1 [facility] Chloride [Moles/Vol] 101 mmol/L 98-107 [facility] Eosinophils/100 WBC (Bld) 1.9 % 0-5 [facility] Glucose [Mass/Vol] 264 mg/dL 74-106 [facility] Comment on above: Glucose result great er than or equal to 200 mg/dLsuggests DIABETES MELLITUS per A.D.A. criteria. Hemoglobin (Bld) [Mass/Vol] 11.4 g/dL 13.0-16. 5 [facility] Monocytes/100 WBC (Bld) 11.2 % 0-10 [facility] Neutrophils (Bld) [#/Vol] 3.0 10*3/uL 2.0-7.7 [facility] Neutrophils/100 WBC (Bld) 65.7 % 47-70 [facility] Potassium [Moles/Vol] 3.9 mmol/L 3.5-5.1 [facility] Sodium [Moles/Vol] 134 mmol/L 136-145 [facility] WBC (Bld) [#/Vol] 4.6 10*3/uL 4.4-11.0 [facility] Bilirubin Test strip Ql (U)O rdered By: Gildardo Walton on 12-03-2023 Bilirubin Ql (U) Negative Negative [facility] Determination of erythrocyte mean corpuscular volume (MCV)Ordered By: Jered Huff on 12-03-2023 MCV (RBC) [Entitic vol] 86.9 fL 80-94 [facility] Erythrocyte distribution wid th ratioOrdered By: Jered Huff on 12-03-2023 Erythrocyte distribution width (RBC) [Ratio] 12.3 % 11.6-14.6 [facility] Erythrocyte distribution wid th standard deviationOrdered By: Jered Huff on 12-03-2023 Erythrocyte distribution width (RBC) [Entitic vol] 39.1 fL 35.1-43.9 [facility] Hematocrit Auto (Bld) [Volum e fraction]Ordered By: Jered Huff on 12-03-2023 Hematocrit (Bld) [Volume fraction] 33.3 % 40-54 [facility] Immature granulocytes/100 WB C Auto (Bld)Ordered By: Jered Huff on 12-03-2023 Immature granulocytes/100 WBC (Bld) 0.900 % 0.0-0.9 [facility] Comment on above: IG% - Immature Granu locytes (promyelocytes, myelocytes and metamyelocytes) > 1% indicates that a LEFT SHIFT is Present. Ketones Test strip Ql (U)Ord ered By: Gildardo Walton on 12-03-2023 Ketones Ql (U) Negative Negative [facility] Laboratory - Chemistry and C hemistry - challengeOrdered By: Jered Huff on 12-03-2023 CO2 [Moles/Vol] 28.0 mmol/L 21.0-32.0 [facility] Urea nitrogen/Creatinine [Mass ratio] 22.5 mg/mg 10-20 [facility] Laboratory - CoagulationOrde red By: Jered Huff on 12-03-2023 INR Coag (Bld) [Relative time] 1.0 {INR} [facility] PT Coag (PPP) [Time] 13.0 s 11.7-14.9 [facility] Laboratory - Hematology and Cell countsOrdered By: Jered Huff on 12-03-2023 MCH (RBC) [Entitic mass] 29.8 pg 27.0-32.0 [facility] MCHC (RBC) [Mass/Vol] 34.2 g/dL 32-36 [facility] Nucleated RBC/100 WBC (Bld) [Ratio] 0 % 0-5 [facility] Platelet mean volume (Bld) [Entitic vol] 9.2 fL 6.2-12.0 [facility] Platelets (Bld) [#/Vol] 189 10*3/uL 150-450 [facility] Mucus LM Ql (Urine sed)Order ed By: Gildardo Walton on 12-03-2023 Mucus Ql (Urine sed) 0 SEEN /hpf [facility] Nitrite Test strip Ql (U)Ord ered By: Gildardo Walton on 12-03-2023 Nitrite Ql (U) Negative Negative [facility] No Panel InformationOrdered By: Gildardo Walton on 12-03-2023 Troponin I High Sensitivity 7 pg/mL 3.0-78.0 [facility] Comment on above: Please Note: New [place]aj[place] t Units and Gender Specific Reference Ranges. For more information see Policy Stat Procedure Dorothy High Sensitivity Troponin (TNIH) and attachments. Urine RBC 0 SEEN /hpf 0-5 [facility] No Panel InformationOrdered By: Jered Huff on 12-03-2023 Troponin I High Sensitivity 6 pg/mL 3.0-78.0 [facility] Comment on above: Please Note: New [place] t Units and Gender Specific Reference Ranges. For more information see Policy Stat Procedure Dorothy High Sensitivity Troponin (TNIH) and attachments. Estimated GFR (MDRD) Amer 93 mL/min >60 [facility] Comment on above: GFR Calc Estimated GFR (MDRD) Non-Af Amer 77 mL/min >60 [facility] Comment on above: Non- GFR Calc Protein Test strip Ql (U)Ord ered By: Gildardo Walton on 12-03-2023 Protein Ql (U) Negative Negative [facility] RBC Auto (Bld) [#/Vol]Ordere d By: Jered Huff on 12-03-2023 RBC (Bld) [#/Vol] 3.83 10*6/uL 4.6-6.2 [facility] Serum or plasma calcium jaziel urement (mass/volume)Ordered By: Jered Huff on 12-03-2023 Calcium [Mass/Vol] 9.0 mg/dL 8.5-10.1 [facility] Serum or plasma creatinine m easurement (mass/volume)Ordered By: Jered Huff on 12-03-2023 Creatinine [Mass/Vol] 1.02 mg/dL 0.70-1.30 [facility] Comment on above: The validity of the calculated GFR & GFRAA in patients over 70 years has not been determined. Clinical correlation is essential. Serum or plasma urea nitroge n measurement (mass/volume)Ordered By: Jered Huff on 12-03-2023 Urea nitrogen [Mass/Vol] 23 mg/dL 7-18 [facility] Squamous epithelial cells de tection in urine sediment by light microscopyOrdered By: Gildardo Walton on 12-03-2023 Epithelial cells.squamous LM Ql (Urine sed) 0 SEEN /hpf 0-5 [facility] Thin prep Papanicolaou smear with manual screeningOrdered By: Jered Huff on 12-03-2023 Thin prep Papanicolaou smear with manual screening 5 5-15 [facility] Urine blood detectionOrdered By: Gildardo Walton on 12-03-2023 RBC Ql (U) Negative Negative [facility] Urine clarityOrdered By: Carley Walton on 12-03-2023 Clarity (U) Clear Clear [facility] Urine color determinationOrd ered By: Gildardo Walton on 12-03-2023 Color (U) Yellow Yellow [facility] Urine glucose detectionOrder ed By: Gildardo Walton on 12-03-2023 Glucose Ql (U) 50 mg/dl Normal [facility] Urine leukocyte esterase det ection by dipstickOrdered By: Gildardo Walton on 12-03-2023 Leukocyte esterase Test strip Ql (U) Negative Negative [facility] Urine pHOrdered By: Gildardo Walton on 12-03-2023 pH (U) 8.0 [pH] 5.0 - 8.0 [facility] Urine sediment bacteria coun t by microscopy (number/high power field)Ordered By: Gildardo Walton on 12-03-2023 Bacteria LM.HPF (Urine sed) [#/Area] 0 /[HPF] None Seen [facility] Urine specific gravity measu rementOrdered By: Gildardo Walton on 12-03-2023 Specific gravity (U) [Rel density] 1.015 1.002-1.03 0 [facility] Urine urobilinogen measureme ntOrdered By: Gildardoisabell Walton on 12-03-2023 Urobilinogen Ql (U) Normal mg/dl Normal [facility] Absolute lymphocyte countOrd ered By: Jered Huff on 10-23-2023 Lymphocytes Auto (Unsp spec) [#/Vol] 1.04 10*3/uL 0.83-4.51 [facility] Automated lymphocyte count a s percentage of total leukocytesOrdered By: Jered Huff on 10-23-2023 Lymphocytes/100 WBC Auto (Unsp spec) 10.2 % 19-41 [facility] Basophil percentageOrdered B y: Jered Huff on 10-23-2023 Basophils/100 WBC (Bld) 0.7 % 0-1 [facility] Chloride [Moles/Vol] 107 mmol/L 98-107 [facility] Eosinophils/100 WBC (Bld) 3.4 % 0-5 [facility] Glucose [Mass/Vol] 136 mg/dL 74-106 [facility] Comment on above: Fasting Glucose resu lt greater than or equal to 126 mg/dL suggests DIABETES MELLITUS per A.D.A. criteria. Hemoglobin (Bld) [Mass/Vol] 11.9 g/dL 13.0-16. 5 [facility] Monocytes/100 WBC (Bld) 10.0 % 0-10 [facility] Neutrophils (Bld) [#/Vol] 7.7 10*3/uL 2.0-7.7 [facility] Neutrophils/100 WBC (Bld) 75.3 % 47-70 [facility] Potassium [Moles/Vol] 4.8 mmol/L 3.5-5.1 [facility] Sodium [Moles/Vol] 136 mmol/L 136-145 [facility] WBC (Bld) [#/Vol] 10.2 10*3/uL 4.4-11.0 [facility] Determination of erythrocyte mean corpuscular volume (MCV)Ordered By: Jered Huff on 10-23-2023 MCV (RBC) [Entitic vol] 91.7 fL 80-94 [facility] Erythrocyte distribution wid th ratioOrdered By: Jeredvaibhav Huff on 10-23-2023 Erythrocyte distribution width (RBC) [Ratio] 12.8 % 11.6-14.6 [facility] Erythrocyte distribution wid th standard deviationOrdered By: Jered Huff on 10-23-2023 Erythrocyte distribution width (RBC) [Entitic vol] 42.7 fL 35.1-43.9 [facility] Hematocrit Auto (Bld) [Volum e fraction]Ordered By: Jered Huff on 10-23-2023 Hematocrit (Bld) [Volume fraction] 36.6 % 40-54 [facility] Immature granulocytes/100 WB C Auto (Bld)Ordered By: Jered Huff on 10-23-2023 Immature granulocytes/100 WBC (Bld) 0.400 % 0.0-0.9 [facility] Comment on above: IG% - Immature Granu locytes (promyelocytes, myelocytes and metamyelocytes) > 1% indicates that a LEFT SHIFT is Present. Laboratory - Chemistry and C hemistry - challengeOrdered By: Jered Huff on 10-23-2023 CO2 [Moles/Vol] 26.0 mmol/L 21.0-32.0 [facility] Urea nitrogen/Creatinine [Mass ratio] 27.4 mg/mg 10-20 [facility] Laboratory - Hematology and Cell countsOrdered By: Jered Huff on 10-23-2023 MCH (RBC) [Entitic mass] 29.8 pg 27.0-32.0 [facility] MCHC (RBC) [Mass/Vol] 32.5 g/dL 32-36 [facility] Nucleated RBC/100 WBC (Bld) [Ratio] 0 % 0-5 [facility] Platelet mean volume (Bld) [Entitic vol] 9.0 fL 6.2-12.0 [facility] Platelets (Bld) [#/Vol] 229 10*3/uL 150-450 [facility] No Panel InformationOrdered By: Jered Huff on 10-23-2023 Troponin I High Sensitivity 6 pg/mL 3.0-78.0 [facility] Comment on above: Please Note: New [place] t Units and Gender Specific Reference Ranges. For more information see Policy Stat Procedure [place] High Sensitivity Troponin (TNIH) and attachments. Estimated Creatinine Clearance Calc 73.16 ml/min [facility] Estimated GFR (MDRD) Amer 89 mL/min >60 [facility] Comment on above: GFR Calc Estimated GFR (MDRD) Non-Af Amer 73 mL/min >60 [facility] Comment on above: Non- GFR Calc RBC Auto (Bld) [#/Vol]Ordere d By: Jered Huff on 10-23-2023 RBC (Bld) [#/Vol] 3.99 10*6/uL 4.6-6.2 [facility] Serum or plasma calcium jaziel urement (mass/volume)Ordered By: Jered Huff on 10-23-2023 Calcium [Mass/Vol] 9.9 mg/dL 8.5-10.1 [facility] Serum or plasma creatinine m easurement (mass/volume)Ordered By: Jered Huff on 10-23-2023 Creatinine [Mass/Vol] 1.06 mg/dL 0.70-1.30 [facility] Comment on above: The validity of the calculated GFR & GFRAA in patients over 70 years has not been determined. Clinical correlation is essential. Serum or plasma urea nitroge n measurement (mass/volume)Ordered By: Jered Huff on 10-23-2023 Urea nitrogen [Mass/Vol] 29 mg/dL 7-18 [facility] Thin prep Papanicolaou smear with manual screeningOrdered By: Jered Huff on 10-23-2023 Thin prep Papanicolaou smear with manual screening 3 5-15 [facility] Absolute lymphocyte countOrd ered By: Ivy Toribio on 10-15-2023 Lymphocytes Auto (Unsp spec) [#/Vol] 0.91 10*3/uL 0.83-4.51 [facility] Automated lymphocyte count a s percentage of total leukocytesOrdered By: Ivy Toribio on 10-15-2023 Lymphocytes/100 WBC Auto (Unsp spec) 18.5 % 19-41 [facility] Basophil percentageOrdered B y: Ivy Toribio on 10-15-2023 Basophils/100 WBC (Bld) 0.6 % 0-1 [facility] Chloride [Moles/Vol] 103 mmol/L 98-107 [facility] Eosinophils/100 WBC (Bld) 5.1 % 0-5 [facility] Glucose [Mass/Vol] 265 mg/dL 74-106 [facility] Comment on above: Glucose result great er than or equal to 200 mg/dLsuggests DIABETES MELLITUS per A.D.A. criteria. Hemoglobin (Bld) [Mass/Vol] 11.7 g/dL 13.0-16. 5 [facility] Monocytes/100 WBC (Bld) 10.1 % 0-10 [facility] Neutrophils (Bld) [#/Vol] 3.2 10*3/uL 2.0-7.7 [facility] Neutrophils/100 WBC (Bld) 65.3 % 47-70 [facility] Potassium [Moles/Vol] 4.6 mmol/L 3.5-5.1 [facility] Sodium [Moles/Vol] 137 mmol/L 136-145 [facility] WBC (Bld) [#/Vol] 4.9 10*3/uL 4.4-11.0 [facility] Determination of erythrocyte mean corpuscular volume (MCV)Ordered By: Ivy Toribio on 10-15-2023 MCV (RBC) [Entitic vol] 90.9 fL 80-94 [facility] Erythrocyte distribution wid th ratioOrdered By: Ivy Toribio on 10-15-2023 Erythrocyte distribution width (RBC) [Ratio] 13.1 % 11.6-14.6 [facility] Erythrocyte distribution wid th standard deviationOrdered By: Ivy Toribio on 10-15-2023 Erythrocyte distribution width (RBC) [Entitic vol] 43.1 fL 35.1-43.9 [facility] Hematocrit Auto (Bld) [Volum e fraction]Ordered By: Ivy Toribio on 10-15-2023 Hematocrit (Bld) [Volume fraction] 35.9 % 40-54 [facility] Immature granulocytes/100 WB C Auto (Bld)Ordered By: Ivy Toribio on 10-15-2023 Immature granulocytes/100 WBC (Bld) 0.400 % 0.0-0.9 [facility] Comment on above: IG% - Immature Granu locytes (promyelocytes, myelocytes and metamyelocytes) > 1% indicates that a LEFT SHIFT is Present. Laboratory - Chemistry and C hemistry - challengeOrdered By: Ivy Toribio on 10-15-2023 CO2 [Moles/Vol] 24.0 mmol/L 21.0-32.0 [facility] Urea nitrogen/Creatinine [Mass ratio] 17.8 mg/mg 10-20 [facility] Laboratory - Hematology and Cell countsOrdered By: Ivy Toribio on 10-15-2023 MCH (RBC) [Entitic mass] 29.6 pg 27.0-32.0 [facility] MCHC (RBC) [Mass/Vol] 32.6 g/dL 32-36 [facility] Nucleated RBC/100 WBC (Bld) [Ratio] 0 % 0-5 [facility] Platelet mean volume (Bld) [Entitic vol] 9.5 fL 6.2-12.0 [facility] Platelets (Bld) [#/Vol] 197 10*3/uL 150-450 [facility] No Panel InformationOrdered By: Ivy Toribio on 10-15-2023 Troponin I High Sensitivity 101 pg/mL 3.0-78.0 [facility] Comment on above: Please Note: New [place] t Units and Gender Specific Reference Ranges. For more information see Policy Stat Procedure [facility] High Sensitivity Troponin (TNIH) and attachments. D-Dimer Quantitative (PE/DVT) 0.56 FEU/ug/m 0.27-0.49 [facility] Comment on above: D-Dimer ELEVATED (>0 .49): Additional studies and clinicalassessments are indicated to conclude diagnosis of:Deep Vein Thrombosis (DVT) or Pulmonary Embolism (PE) Estimated Creatinine Clearance Calc 71.85 ml/min [facility] Estimated GFR (MDRD) Amer 88 mL/min >60 [facility] Comment on above: GFR Calc Estimated GFR (MDRD) Non-Af Amer 73 mL/min >60 [facility] Comment on above: Non- GFR Calc RBC Auto (Bld) [#/Vol]Ordere d By: Ivy Toribio on 10-15-2023 RBC (Bld) [#/Vol] 3.95 10*6/uL 4.6-6.2 [facility] Serum or plasma calcium jaziel urement (mass/volume)Ordered By: Ivy Toribio on 10-15-2023 Calcium [Mass/Vol] 9.3 mg/dL 8.5-10.1 [facility] Serum or plasma creatinine m easurement (mass/volume)Ordered By: Ivy oTribio on 10-15-2023 Creatinine [Mass/Vol] 1.07 mg/dL 0.70-1.30 [facility] Comment on above: The validity of the calculated GFR & GFRAA in patients over 70 years has not been determined. Clinical correlation is essential. Serum or plasma urea nitroge n measurement (mass/volume)Ordered By: Ivy Toribio on 10-15-2023 Urea nitrogen [Mass/Vol] 19 mg/dL 7-18 [facility] Thin prep Papanicolaou smear with manual screeningOrdered By: Ivy Toribio on 10-15-2023 Thin prep Papanicolaou smear with manual screening 10 5-15 [facility] Basophil percentageOrdered B y: Ez Hurst on 10-11-2023 Bilirubin [Mass/Vol] 0.50 mg/dL 0.20-1.00 [facility] Comment on above: For patients on eltr ombopag therapy, use of Dimension Dorothy TBIL is not recommended. Chloride [Moles/Vol] 108 mmol/L 98-107 [facility] Glucose [Mass/Vol] 144 mg/dL 74-106 [facility] Comment on above: Fasting Glucose resu lt greater than or equal to 126 mg/dL suggests DIABETES MELLITUS per A.D.A. criteria. Hemoglobin (Bld) [Mass/Vol] 10.7 g/dL 13.0-16. 5 [facility] Potassium [Moles/Vol] 3.7 mmol/L 3.5-5.1 [facility] Protein [Mass/Vol] 6.8 g/dL 6.4-8.2 [facility] Sodium [Moles/Vol] 139 mmol/L 136-145 [facility] WBC (Bld) [#/Vol] 7.8 10*3/uL 4.4-11.0 [facility] Determination of erythrocyte mean corpuscular volume (MCV)Ordered By: Ez Hurst on 10-11-2023 MCV (RBC) [Entitic vol] 91.1 fL 80-94 [facility] Erythrocyte distribution wid th ratioOrdered By: Ezaristeo Hurst on 10-11-2023 Erythrocyte distribution width (RBC) [Ratio] 13.3 % 11.6-14.6 [facility] Erythrocyte distribution wid th standard deviationOrdered By: Ezaristeo Hurst on 10-11-2023 Erythrocyte distribution width (RBC) [Entitic vol] 45.1 fL 35.1-43.9 [facility] Hematocrit Auto (Bld) [Volum e fraction]Ordered By: Ezaristeo Hurst on 10-11-2023 Hematocrit (Bld) [Volume fraction] 32.6 % 40-54 [facility] Laboratory - Chemistry and C hemistry - challengeOrdered By: Ezaristeo Hurst on 10-11-2023 Albumin/Globulin [Mass ratio] 1.3 {ratio} 0.9-2.4 [facility] ALP [Catalytic activity/Vol] 79 U/L 45-117 [facility] ALT [Catalytic activity/Vol] 25 U/L 16-61 [facility] CO2 [Moles/Vol] 23.0 mmol/L 21.0-32.0 [facility] Globulin (S) [Mass/Vol] 2.9 g/dL 2.2-4.2 [facility] Urea nitrogen/Creatinine [Mass ratio] 20.1 mg/mg 10-20 [facility] - Hematology and Cell countsOrdered By: Ezaristeo Hurst on 10-11-2023 MCH (RBC) [Entitic mass] 29.9 pg 27.0-32.0 [facility] MCHC (RBC) [Mass/Vol] 32.8 g/dL 32-36 [facility] Platelet mean volume (Bld) [Entitic vol] 9.4 fL 6.2-12.0 [facility] Platelets (Bld) [#/Vol] 195 10*3/uL 150-450 [facility] No Panel InformationOrdered By: Ez Hurst on 10-11-2023 Estimated Creatinine Clearance Calc 96.49 ml/min [facility] Estimated GFR (MDRD) Amer 123 mL/min >60 [facility] Comment on above: GFR Calc Estimated GFR (MDRD) Non-Af Amer 102 mL/min >60 [facility] Comment on above: Non- GFR Calc RBC Auto (Bld) [#/Vol]Ordere d By: Ez Hurst on 10-11-2023 RBC (Bld) [#/Vol] 3.58 10*6/uL 4.6-6.2 [facility] Serum or plasma calcium jaziel urement (mass/volume)Ordered By: Ez Hurst on 10-11-2023 Calcium [Mass/Vol] 8.7 mg/dL 8.5-10.1 [facility] Serum or plasma creatinine m easurement (mass/volume)Ordered By: Ez Hurst on 10-11-2023 Creatinine [Mass/Vol] 0.80 mg/dL 0.70-1.30 [facility] Comment on above: The validity of the calculated GFR & GFRAA in patients over 70 years has not been determined. Clinical correlation is essential. Serum or plasma urea nitroge n measurement (mass/volume)Ordered By: Ez Hurst on 10-11-2023 Urea nitrogen [Mass/Vol] 16 mg/dL 7-18 [facility] Thin prep Papanicolaou smear with manual screeningOrdered By: Foster Mayberry on 10-11-2023 Thin prep Papanicolaou smear with manual screening 172 mg/dL 74-106 [facility] Comment on above: MANAGEMENT OF PATIEN T CARE PER NURSING PROTOCOL Thin prep Papanicolaou smear with manual screeningOrdered By: Ez Hurst on 10-11-2023 Thin prep Papanicolaou smear with manual screening 3.9 g/dL 3.2-5.0 [facility] Thin prep Papanicolaou smear with manual screening 15 U/L 15-37 [facility] Thin prep Papanicolaou smear with manual screening 8 5-15 [facility] Absolute lymphocyte countOrd ered By: Gildardo Walton on 10-10-2023 Lymphocytes Auto (Unsp spec) [#/Vol] 1.27 10*3/uL 0.83-4.51 [facility] Activated partial thrombopla stin time (aPTT) in platelet poor plasma by coagulation aOrdered By: Gildardo Walton on 10-10-2023 aPTT Coag (PPP) [Time] 53.1 s 24.1-36.2 [facility] Automated lymphocyte count a s percentage of total leukocytesOrdered By: Gildardo Walton on 10-10-2023 Lymphocytes/100 WBC Auto (Unsp spec) 24.7 % 19-41 [facility] Basophil percentageOrdered B y: Gildardo Walton on 10-10-2023 Basophils/100 WBC (Bld) 0.8 % 0-1 [facility] Cholesterol [Mass/Vol] 129 mg/dL <200 [facility] Comment on above: <200 mg/dL Desirable 200-240 mg/dL Borderline >240 mg/dL High Risk Eosinophils/100 WBC (Bld) 3.9 % 0-5 [facility] Monocytes/100 WBC (Bld) 8.2 % 0-10 [facility] Neutrophils (Bld) [#/Vol] 3.2 10*3/uL 2.0-7.7 [facility] Neutrophils/100 WBC (Bld) 61.8 % 47-70 [facility] Triglyceride [Mass/Vol] 86 mg/dL <199 [facility] Comment on above: The drugs N-Acetylcy steine and Metamizole may falsely depress this assay.Serum Triglycerides Reference Interval Normal <150 mg/dL Borderline high 150 - 199 mg/dL High 200 - 499 mg/dL Very High > or = 500 mg/dL Immature granulocytes/100 WB C Auto (Bld)Ordered By: Gildardo Walton on 10-10-2023 Immature granulocytes/100 WBC (Bld) 0.600 % 0.0-0.9 [facility] Comment on above: IG% - Immature Granu locytes (promyelocytes, myelocytes and metamyelocytes) > 1% indicates that a LEFT SHIFT is Present. Laboratory - Chemistry and C hemistry - challengeOrdered By: Gildardo Walton on 10-10-2023 Cholesterol in HDL [Mass/Vol] 60 mg/dL >40 [facility] Comment on above: The drugs N-Acetylcy steine and Metamizole may falsely depress this assay. Reference Range HDL <40 mg/dL Low HDL Cholesterol HDL >or= 60 mg/dL High HDL Cholesterol Cholesterol in LDL [Mass/Vol] 52 mg/dL 0-130 [facility] Natriuretic peptide B (Bld) [Mass/Vol] 41.9 pg/mL 0-100 [facility] Laboratory - Hematology and Cell countsOrdered By: Gildardo Walton on 10-10-2023 Nucleated RBC/100 WBC (Bld) [Ratio] 0 % 0-5 [facility] No Panel InformationOrdered By: Foster Mayberry on 10-10-2023 Activated Clotting Time 266 sec 74-137 [facility] No Panel InformationOrdered By: Gildardo Walton on 10-10-2023 VLDL Cholesterol 17 mg/dL 5-40 [facility] Troponin I High Sensitivity 21 pg/mL 3.0-78.0 [facility] Comment on above: Please Note: New Yajaira t Units and Gender Specific Reference Ranges. For more information see Policy Stat Procedure Dorothy High Sensitivity Troponin (TNIH) and attachments. Serum or plasma thyroid stim ulating hormone (TSH) measurement (units/volume)Ordered By: Gildardo Walton on 10-10-2023 TSH Qn 3.00 uIU/mL 0.358-3.74 [facility] Whole blood hemoglobin A1c/t otal hemoglobin ratio (mass fraction)Ordered By: Foster Mayberry on 10-10-2023 HbA1c (Bld) [Mass fraction] 7.3 % 3.8-5.6 [facility] Comment on above: Normal < 5.7 % Predi abetic 5.7 - 6.4 % Diabetic >or= 6.5 % Please note range changes. Absolute lymphocyte countOrd ered By: Nicko Rabago on 10-09-2023 Lymphocytes Auto (Unsp spec) [#/Vol] 1.81 10*3/uL 0.83-4.51 [facility] Activated partial thrombopla stin time (aPTT) in platelet poor plasma by coagulation aOrdered By: Nicko Rabago on 10-09-2023 aPTT Coag (PPP) [Time] 27.0 s 24.1-36.2 [facility] Automated lymphocyte count a s percentage of total leukocytesOrdered By: Nicko Rabago on 10-09-2023 Lymphocytes/100 WBC Auto (Unsp spec) 25.4 % 19-41 [facility] Basophil percentageOrdered B y: Nicko Rabago on 10-09-2023 Basophils/100 WBC (Bld) 0.7 % 0-1 [facility] Chloride [Moles/Vol] 105 mmol/L 98-107 [facility] Eosinophils/100 WBC (Bld) 2.7 % 0-5 [facility] Glucose [Mass/Vol] 285 mg/dL 74-106 [facility] Comment on above: Glucose result great er than or equal to 200 mg/dLsuggests DIABETES MELLITUS per A.D.A. criteria. Hemoglobin (Bld) [Mass/Vol] 11.5 g/dL 13.0-16. 5 [facility] Monocytes/100 WBC (Bld) 7.7 % 0-10 [facility] Neutrophils (Bld) [#/Vol] 4.5 10*3/uL 2.0-7.7 [facility] Neutrophils/100 WBC (Bld) 63.1 % 47-70 [facility] Potassium [Moles/Vol] 4.4 mmol/L 3.5-5.1 [facility] Sodium [Moles/Vol] 138 mmol/L 136-145 [facility] WBC (Bld) [#/Vol] 7.1 10*3/uL 4.4-11.0 [facility] Determination of erythrocyte mean corpuscular volume (MCV)Ordered By: Nicko Rabago on 10-09-2023 MCV (RBC) [Entitic vol] 90.4 fL 80-94 [facility] Erythrocyte distribution wid th ratioOrdered By: Nicko Rabago on 10-09-2023 Erythrocyte distribution width (RBC) [Ratio] 13.0 % 11.6-14.6 [facility] Erythrocyte distribution wid th standard deviationOrdered By: Nicko Rabago on 10-09-2023 Erythrocyte distribution width (RBC) [Entitic vol] 42.6 fL 35.1-43.9 [facility] Hematocrit Auto (Bld) [Volum e fraction]Ordered By: Nicko Rabago on 10-09-2023 Hematocrit (Bld) [Volume fraction] 35.0 % 40-54 [facility] Immature granulocytes/100 WB C Auto (Bld)Ordered By: Nicko Rabago on 10-09-2023 Immature granulocytes/100 WBC (Bld) 0.400 % 0.0-0.9 [facility] Comment on above: IG% - Immature Granu locytes (promyelocytes, myelocytes and metamyelocytes) > 1% indicates that a LEFT SHIFT is Present. Laboratory - Chemistry and C hemistry - challengeOrdered By: Nicko Rabago on 10-09-2023 CO2 [Moles/Vol] 26.0 mmol/L 21.0-32.0 [facility] Magnesium [Mass/Vol] 2.1 mg/dL 1.6-2.6 [facility] Urea nitrogen/Creatinine [Mass ratio] 25.6 mg/mg 10-20 [facility] Laboratory - CoagulationOrde red By: Nicko Rabago on 10-09-2023 INR Coag (Bld) [Relative time] 0.9 {INR} [facility] PT Coag (PPP) [Time] 12.4 s 11.7-14.9 [facility] Laboratory - Hematology and Cell countsOrdered By: Nicko Rabago on 10-09-2023 MCH (RBC) [Entitic mass] 29.7 pg 27.0-32.0 [facility] MCHC (RBC) [Mass/Vol] 32.9 g/dL 32-36 [facility] Nucleated RBC/100 WBC (Bld) [Ratio] 0 % 0-5 [facility] Platelet mean volume (Bld) [Entitic vol] 9.5 fL 6.2-12.0 [facility] Platelets (Bld) [#/Vol] 210 10*3/uL 150-450 [facility] No Panel InformationOrdered By: Nicko Rabago on 10-09-2023 Troponin I High Sensitivity 13 pg/mL 3.0-78.0 [facility] Comment on above: Please Note: New Yajaira t Units and Gender Specific Reference Ranges. For more information see Policy Stat Procedure Dorothy High Sensitivity Troponin (TNIH) and attachments. Estimated Creatinine Clearance Calc 70.42 ml/min [facility] Estimated GFR (MDRD) Amer 76 mL/min >60 [facility] Comment on above: GFR Calc Estimated GFR (MDRD) Non-Af Amer 63 mL/min >60 [facility] Comment on above: Non- GFR Calc RBC Auto (Bld) [#/Vol]Ordere d By: Nicko Rabago on 10-09-2023 RBC (Bld) [#/Vol] 3.87 10*6/uL 4.6-6.2 [facility] Serum or plasma calcium jaziel urement (mass/volume)Ordered By: Nicko Rabago on 10-09-2023 Calcium [Mass/Vol] 8.6 mg/dL 8.5-10.1 [facility] Serum or plasma creatinine m easurement (mass/volume)Ordered By: Nicko Rabago on 10-09-2023 Creatinine [Mass/Vol] 1.21 mg/dL 0.70-1.30 [facility] Comment on above: The validity of the calculated GFR & GFRAA in patients over 70 years has not been determined. Clinical correlation is essential. Serum or plasma urea nitroge n measurement (mass/volume)Ordered By: Nicko Rabago on 10-09-2023 Urea nitrogen [Mass/Vol] 31 mg/dL 7-18 [facility] Thin prep Papanicolaou smear with manual screeningOrdered By: Nicko Rabago on 10-09-2023 Thin prep Papanicolaou smear with manual screening 7 5-15 [facility] CBC W Auto Differential pane l (Bld)on 11-28-2022 Basophils (Bld) [#/Vol] 0.06 10*3/uL <0.11 k/uL [facility] Basophils/100 WBC (Bld) 1.0 % [facility] Differential cell count method Nom (Bld) Auto [facility] Eosinophils (Bld) [#/Vol] 0.16 10*3/uL <0.46 k/ uL [facility] Eosinophils/100 WBC (Bld) 2.6 % [facility] Erythrocyte distribution width (RBC) [Ratio] 13.3 % 11.5 - 15.0 % [facility] Hematocrit (Bld) [Volume fraction] 36.6 % Low 39.0 - 51.0 % [facility] Hemoglobin (Bld) [Mass/Vol] 12.2 g/dL Low 13.0 - 17.0 g/dL [facility] Immature granulocytes (Bld) [#/Vol] <0.10 k/uL [facility] Immature granulocytes/100 WBC (Bld) 0.3 % [facility] Lymphocytes (Bld) [#/Vol] 1.01 10*3/uL 1. 00 - 4.00 k/uL [facility] Lymphocytes/100 WBC (Bld) 16.3 % [facility] MCH (RBC) [Entitic mass] 29.5 pg 26. 0 - 34.0 pg [facility] MCHC (RBC) [Mass/Vol] 33.3 g/dL 30.5 - 36.0 g/dL [facility] MCV (RBC) [Entitic vol] 88.6 fL 80.0 - 100.0 fL [facility] Monocytes (Bld) [#/Vol] 0.50 10*3/uL <0.87 k/uL [facility] Monocytes/100 WBC (Bld) 8.1 % [facility] Neutrophils (Bld) [#/Vol] 4.46 10*3/uL 1. 45 - 7.50 k/uL [facility] Neutrophils/100 WBC (Bld) 71.7 % [facility] Nucleated RBC (Bld) [#/Vol] <0.01 k/ uL [facility] Nucleated RBC/100 WBC (Bld) [Ratio] 0.0 /100 WBC [facility] Platelet mean volume (Bld) [Entitic vol] 10.3 fL 9.0 - 12.7 fL [facility] Platelets (Bld) [#/Vol] 189 10*3/uL 150 - 400 k/uL [facility] RBC (Bld) [#/Vol] 4.13 10*6/uL Low 4.20 - 6.00 m/uL [facility] WBC (Bld) [#/Vol] 6.21 10*3/uL 3.70 - 11.00 k/uL [facility] Comprehensive metabolic 2000 panelon 11-28-2022 Albumin [Mass/Vol] 4.7 g/dL 3.9 - 4.9 g/dL [facility] ALP [Catalytic activity/Vol] 129 U/L High 38 - 113 U/L [facility] ALT [Catalytic activity/Vol] 17 U/L 10 - 54 U/L [facility] Anion gap [Moles/Vol] 10 mmol/L 9 - 18 mmol/L [facility] AST [Catalytic activity/Vol] 18 U/L 14 - 40 U/L [facility] Bilirubin [Mass/Vol] 0.4 mg/dL 0.2 - 1 .3 mg/dL [facility] Calcium [Mass/Vol] 9.6 mg/dL 8.5 - 10. 2 mg/dL [facility] Chloride [Moles/Vol] 102 mmol/L 97 - 10 5 mmol/L [facility] CO2 [Moles/Vol] 26 mmol/L 22 - 30 mmol/L [facility] Creatinine [Mass/Vol] 0.80 mg/dL 0.73 - 1.22 mg/dL [facility] Estimated Glomerular Filtration Rate 96 mL/min/1.73m >=60 mL/min/1.7 3m [facility] Glucose [Mass/Vol] 200 mg/dL High 74 - 99 mg/dL [facility] Potassium [Moles/Vol] 4.3 mmol/L 3.7 - 5.1 mmol/L [facility] Protein [Mass/Vol] 7.6 g/dL 6.3 - 8.0 g/dL [facility] Sodium [Moles/Vol] 138 mmol/L 136 - 144 mmol/L [facility] Urea nitrogen [Mass/Vol] 10 mg/dL 9 - 24 mg/dL [facility] LIPID PANEL, NONFASTINGon Cholesterol [Mass/Vol] 123 mg/dL <200 mg/dL [facility] HDL Cholesterol, Nonfasting 59 mg/dL >39 mg/d L [facility] LDL Cholesterol, Nonfasting 52 mg/dL <100 mg/ dL [facility] LDL/HDL Ratio, Nonfasting 0.88 mg/dL <2 .54 mg/dL [facility] Non HDL Cholesterol, Nonfasting 64 mg/dL <130 mg/dL [facility] Total Chol/HDL Ratio, Nonfasting 2.08 mg/dL <5.10 mg/dL [facility] Triglycerides, Nonfasting 59 mg/dL <150 mg/dL [facility] VLDL Cholesterol, Nonfasting 12 mg/dL <30 mg/ dL [facility] PSA/PROSTSPECAG DIAGon 11-28 Prostate specific Ag [Mass/Vol] 3.86 ng/mL High <2.60 ng/mL [facility] Urinalysis complete panel (U )on 11-28-2022 Bilirubin Ql (U) Negative Negative [facility] Clarity (Unsp spec) Clear Clear [facility] Color (U) Colorless Yellow [facility] Glucose Test strip (U) [Mass/Vol] 2+ Abnormal Trace, Negative [facility] Hemoglobin Ql (U) Negative Negative, Trace [facility] Hyaline casts (Urine sed) [#/Area] 1-3 /LPF Abnormal 0 /LPF [facility] Ketones Ql (U) Negative Trace, Negative [facility] Leukocyte esterase Test strip Ql (U) Negative Negative, 25 Gordy/uL [facility] Nitrite Ql (U) Negative Negative [facility] pH (U) 6.0 [pH] 5.0 - 8.0 [facility] Protein (U) [Mass/Vol] Negative Trace , Negative [facility] RBC LM.HPF (Urine sed) [#/Area] 0-3 /HPF 0-3 /HPF [facility] Specific gravity (U) [Rel density] 1.008 1.005 - 1.030 [facility] Urobilinogen Ql (U) Negative Negative [facility] WBC LM.HPF (Urine sed) [#/Area] 0-5 /HPF 0-5 /HPF [facility] ANES POSTPROC EVALon 023 ANES POSTPROC EVAL HNO ID: [id number] Author: Hany Johnson MD Service: Anesthesiology Author Type: Anesthesiologist Type: Anesthesia Postprocedure Evaluation Filed: 10/14/2022 12:01 PM Note Text: POST ANESTHESIA EVALUATION NOTE : 1955 Procedure Summary Date: 10/14/22 Room / Location: Endoscopy Anesthesia Start: 1117 Anesthesia Stop: 1150 Procedures: EGD DIAGNOSTIC COLONOSCOPY DIAGNOSTIC Diagnosis: Anemia, unspecified type (Iron deficiency anemia) Scheduled Providers: Thai Santiago MD; Fernando Blanc APRN.CRNA; Hany Johnson MD Responsible Provider: Hany Johnson [...] October 14, 2022 TIME: 12:01 PM CSN: [id number] Normal ANES PRE-OPon 10-14-2022 ANES PRE-OP HNO ID: [id number] Author: Hany Johnson MD Service: Anesthesiology Author Type: Anesthesiologist Type: Anesthesia Preprocedure Evaluation Filed: 10/14/2022 10:53 AM Note Text: ANESTHESIOLOGY DAY OF SURGERY NOTE : 1955 Procedure Information Date/Time: 10/14/22 1215 Scheduled providers: Thai Santiago MD; Fernando Blanc APRN.WARP COILER; Hany Johnson MD Procedures: EGD DIAGNOSTIC COLONOSCOPY DIAGNOSTIC Location: Endoscopy Estimated body mass index is 24.97 kg/m? as calculated from the following: Height as of 08/05/22: 177.8 cm (5' 10"). Weight as of 10/05/22: 78.9 kg (174 [...] and consent discussed: yes. Patient / Responsible Democrat agrees to proceed: yes Patient / Surrogate [...] tablet by mouth twice daily. Per cardioDr. Kern, not taking as of 06/28/2022 - [...] tablet by mouth once daily. Managed by [facility] - omega-3 fatty acids 1,000 [...] October 14, 2022 TIME: 10:53 AM CSN: [id number] (more content not included)... Normal COLONOSCOPY DIAGNOSTICon [facility] Colonoscopyon 10-14-2022 Colonoscopy Gastrointestinal Endoscopy Patient Name: Michael Bates Procedure Date: 10/14/2022 11:32 AM Date of : 1955 Admit Type: Outpatient Age: 67 Room: [facility] Gender: Male Note Status: Finalized [...] by the physician, the nurse and the log cut off sawyer in the procedure room. Mental Status Examination: [...] screening purposes. Procedure Code(s): --- Professional --- 69827, Colonoscopy, flexible; diagnostic, including collection of specimen(s) by brushing or washing, when performed (separate procedure) CPT copyright 2020 [employer]. All rights reserved. The codes documented in this report are preliminary and upon bight maker review may be revised to meet current [...] Blood Loss: Estimated blood loss: none. Normal EGD DIAGNOSTICon 10-14-2022 [facility] GLUCOSE, BLOOD (POC)on 10-14 Glucose [Mass/Vol] 157 mg/dL Abnormal 74 - 99 mg/dL [facility] Glucose [Mass/Vol] 179 mg/dL Abnormal 74 - 99 mg/dL [facility] HISTORY PHYSICALon HISTORY PHYSICAL HNO ID: [id number] Author: Thai Santiago MD Service: General Surgery [...] Date 2D ECHO (EXEP) 01/16/2017 EF=60%, 1+ SC and TI CATARACT EXTRACTION HX Left 10/2019 [...] by mouth (more content not included)... Normal SURGICAL PATHOLOGYon 023 ADDENDUM 1: [facility] Comment on above: Order Comment: Speci men Type: TISSUE SPECIMEN Ordering Facility: [facility] Address: [address] [place] [address] Result Comment: Adde ndum is issued to reflect the result of immunohistochemical stain: - Immunostain for H. pylori is negative in part A. Addendum electronically signed by Griffin Falk MD, PhD on 10/18/2022 at 7:45 PM Performed By: #### S #### [facility] CLIA [id number] [address] [place] [address] OF [place] CASE REPORT [facility] Comment on above: Order Comment: Speci carlie Type: TISSUE SPECIMEN Ordering Facility: [facility] Address: [address] [place] [address] Result Comment: [facility] Pathology Report Case: [id number] Authorizing Provider: Thai Santiago MD Collected: 10/14/2022 11:26 AM Ordering Location: Endoscopy Received: 10/14/2022 12:19 PM Pathologist: Griffin Falk MD, PhD Specimens: A) - ANTRUM (STOMACH) BIOPSY B) - ESOPHAGUS LOWER BIOPSY, Esophagus Bx @ 38cm C) - ESOPHAGUS MID BIOPSY, Esophagus Bx @ 30cm D) - ESOPHAGUS PROXIMAL BIOPSY, Esophagus Bx @ 25cm Performed By: #### S #### [facility] CLIA [id number] [address] [place] [address] FINAL DIAGNOSIS [facility] Comment on above: Order Comment: Nuhai carlie Type: TISSUE SPECIMEN Ordering Facility: [facility] Address: [address] [place] [address] Result Comment: A. A ntrum, biopsy: - [...] reactive change. Performed By: #### S #### [facility] CLIA [id number] [address] [place] [address] STATES OF [place] FINAL PERFORMING LAB Normal [facility] Comment on above: Order Comment: Speci men Type: TISSUE SPECIMEN Ordering Facility: [facility] Address: [address] [place] [address] Result Comment: Diag nostic interpretation performed at [facility], [address] [place] [address] CLIA# [id number] Airframe Design Engineer: Olayinka Paz M.D. Performed By: #### S #### [facility] CLIA [id number] [address] [place] [address] OF [facility] Normal Comment on above: Order Comment: Speci men Type: TISSUE SPECIMEN Ordering Facility: [facility] Address: [address] [place] [address] Result Comment: A. A NTRUM (STOMACH) BIOPSY [...] in one cassette. Gross examination performed at [facility], [address] [place] [id number] 10/14/2022 8:25 PM Performed By: #### S #### [facility] CLIA [id number] [address] [place] [address] [id number] [address] [facility] Upper GI endoscopyon 023 Upper GI endoscopy Gastrointestinal Endoscopy Patient Name: Michael Bates Procedure Date: 10/14/2022 11:02 AM Date of : 1955 Admit Type: Outpatient Age: 67 Room: [facility] Gender: Male Note Status: Finalized [...] by the physician, the nurse and the log cut off sawyer in the procedure room. Prophylactic Antibiotics: The [...] 1 week. Procedure Code(s): --- Professional --- 65765, Esophagogastroduodenos copy, flexible, transoral; with biopsy, single or multiple CPT copyright 2020 [employer]. All rights reserved. The codes documented in this report are preliminary and upon bight maker review may be revised to meet current compliance requirements. Attending Participation: I personally performed the entire procedure. Scope In: 11:24:01 AM Scope Out: 11:32:13 AM MD Thai Gillespie MD 10/14/2022 11:56:49 AM This report has been signed electronically by Thai Santiago MD Number of Addenda: 0 Note Initiated On: 10/14/2022 11:02 AM Estimated Blood Loss: Estimated blood loss: none. Normal XR FOOT GENERAL 3V AP/LAT/OB L LEFTon 09-23-2022 [facility] XR Foot - left AP and Latera l and obliqueon 09-23-2022 IMPRESSION: No radiographic evidence of acute osseous injury Storage Consultant: FAWN Transcribe Date/Time: Sep 23 2022 1:46P Dictated by : PHYLLIS TORRES MD This examination was interpreted and the report reviewed and electronically signed by: PHYLLIS TORRES MD on Sep 23 2022 1:55PM [facility] DIVISION OF RADIOLOGY * * *Final Report* [...] of the hindfoot. DIVISION OF RADIOLOGY Provider, [facility] - 09/23/2022 * * *Final Report* [...] No radiographic evidence of acute osseous injury Storage Consultant: [facility] Transcribe Date/Time: Sep 23 2022 1:46P Dictated by : PHYLLIS TORRES MD This examination was interpreted and the report reviewed and electronically signed by: PHYLLIS TORRES MD on Sep 23 2022 1:55PM EST [facility] Radiology Study observation (narrative) [facility] XR Foot - left AP and Latera l and obliqueOrdered By: Ccf Provider on 09-23-2022 [facility] CNPNon 08-22-2022 CNPN Telephone ([facility]) MICHAEL BATES ([id number]) 1955 M Date Time Provider Department 08/22/22 NADIR GRADY [facility] During your visit today, we recorded the following information about you: Nadir Grady MD 08/22/2022 9:11 AM Signed Let Michael know I did some looking into alternate treatments for esophageal spasms. There is a med called hyoscyamine that he would take three times a day and it will not affect BP. If interested I will send in script to [facility]. Karla Wadsworth MA 08/22/2022 9:23 AM Signed Spoke with Michael and gave Dr. Grady recommendations. He said he would think about it and let us know. I patient I would send the name of the medication via [employer]. ANA Mott MD 08/22/2022 9:35 AM Signed [...] tablet by mouth once daily. Managed by [facility] - omega-3 fatty acids 1,000 [...] strain [S13.9XXA] 07/30/2010 08/30/2010 Other physical therapy [[id number]] 08/16/2010 08/30/2010 Essential hypertension, benign [I10] 01/17/2012 [...] (HCC) [G62.9] (more content not included)... Normal [facility] CBC W Auto Differential pane l (Bld)on 08-21-2022 Basophils (Bld) [#/Vol] 0.07 10*3/uL <0.11 k/uL [facility] Basophils/100 WBC (Bld) 1.4 % [facility] Differential cell count method Nom (Bld) Auto [facility] Eosinophils (Bld) [#/Vol] 0.25 10*3/uL <0.46 k/ uL [facility] Eosinophils/100 WBC (Bld) 5.2 % [facility] Erythrocyte distribution width (RBC) [Ratio] 12.9 % 11.5 - 15.0 % [facility] Hematocrit (Bld) [Volume fraction] 39.1 % 39.0 - 51.0 % [facility] Hemoglobin (Bld) [Mass/Vol] 12.2 g/dL Low 13.0 - 17.0 g/dL [facility] Immature granulocytes (Bld) [#/Vol] <0.10 k/uL [facility] Immature granulocytes/100 WBC (Bld) 0.2 % [facility] Lymphocytes (Bld) [#/Vol] 1.04 10*3/uL 1. 00 - 4.00 k/uL [facility] Lymphocytes/100 WBC (Bld) 21.5 % [facility] MCH (RBC) [Entitic mass] 29.0 pg 26. 0 - 34.0 pg [facility] MCHC (RBC) [Mass/Vol] 31.2 g/dL 30.5 - 36.0 g/dL [facility] MCV (RBC) [Entitic vol] 93.1 fL 80.0 - 100.0 fL [facility] Monocytes (Bld) [#/Vol] 0.50 10*3/uL <0.87 k/uL [facility] Monocytes/100 WBC (Bld) 10.3 % [facility] Neutrophils (Bld) [#/Vol] 2.97 10*3/uL 1. 45 - 7.50 k/uL [facility] Neutrophils/100 WBC (Bld) 61.4 % [facility] Nucleated RBC (Bld) [#/Vol] <0.01 k/ uL [facility] Nucleated RBC/100 WBC (Bld) [Ratio] 0.0 /100 WBC [facility] Platelet mean volume (Bld) [Entitic vol] 9.6 fL 9.0 - 12.7 fL [facility] Platelets (Bld) [#/Vol] 216 10*3/uL 150 - 400 k/uL [facility] RBC (Bld) [#/Vol] 4.20 10*6/uL 4.20 - 6.00 m/uL [facility] WBC (Bld) [#/Vol] 4.84 10*3/uL 3.70 - 11.00 k/uL [facility] Iron and Iron binding capaci ty panelon 08-21-2022 Iron [Mass/Vol] 74 ug/dL 41 - 186 ug/dL [facility] Iron binding capacity [Mass/Vol] 402 ug/dL High 232 - 386 ug/dL [facility] Iron/TIBC [Molar ratio] 18.4 % 15.0 - 57.0 % [facility] UA DIP, URINE (POC)on 2021 BILIRUBIN UA (POCT) Negative Negative [facility] CLARITY UA (POCT) Clear [facility] COLOR UA (POCT) Yellow [facility] GLUCOSE UA (POCT) Negative Negative mg/dL [facility] HEMOGLOBIN/BLOOD UA (POCT) Negative Negative [facility] KETONE UA (POCT) Negative Negative mg/dL [facility] LEUKOCYTES UA (POCT) Negative Negative [facility] NITRITE UA (POCT) Negative Negative [facility] PH UA (POCT) 6.0 4.5 - 8.0 [facility] Protein Ql (U) Negative Negative mg/dL [facility] SPECIFIC GRAVITY UA (POCT) 1.010 1 .005 - 1.030 [facility] UROBILINOGEN UA (POCT) 0.2 E.U./dL Brandy l E.U./dL [facility] No Panel Informationon 07-09 [facility] No Panel Informationon 07-01 [facility] CHEST 2V FRONTAL/LATon [facility] XR Chest PA and Lateralon IMPRESSION: No acute radiographic abnormality. Storage Consultant: FAWN Transcribe Date/Time: Jun 25 2022 9:32A Dictated by : JEANETH ASENCIO MD This examination was interpreted and the report reviewed and electronically signed by: JEANETH ASENCIO MD on Jun 25 2022 9:33AM [facility] DIVISION OF RADIOLOGY * * *Final Report* [...] soft tissues: Unremarkable. DIVISION OF RADIOLOGY Provider, [facility] - 06/25/2022 * * *Final Report* * [...] Unremarkable. IMPRESSION IMPRESSION: No acute radiographic abnormality. Storage Consultant[facility] Transcribe Date/Time: Jun 25 2022 9:32A Dictated by : JEANETH ASENCIO MD This examination was interpreted and the report reviewed and electronically signed by: JEANETH ASENCIO MD on Jun 25 2022 9:33AM EST [facility] Radiology Study observation (narrative) [facility] XR Chest PA and LateralOrder ed By: [facility] Provider on 06-25-2022 [facility] Absolute lymphocyte counton 05-28-2022 Lymphocytes Auto (Unsp spec) [#/Vol] 0.55 10*3/uL 0.83-4.51 [facility] Work Phone: Basophil percentageon 2021 Basophils/100 WBC (Bld) 0.2 % 0-1 [facility] Work Phone: Chloride [Moles/Vol] 100 mmol/L 98-107 [facility] Work [facility]: Eosinophils/100 WBC (Bld) 0.2 % 0-5 [facility] Work Phone: Glucose [Mass/Vol] 385 mg/dL 74-106 [facility] Work Phone: Comment on above: Glucose result great er than or equal to 200 mg/dLsuggests DIABETES MELLITUS per A.D.A. criteria. Neutrophils (Bld) [#/Vol] 4.0 10*3/uL 2.0-7.7 [facility] Work Phone: Neutrophils/100 WBC (Bld) 80.9 % 47-70 [facility] Work Phone: Potassium [Moles/Vol] 3.4 mmol/L 3.5-5.1 [facility] Work Phone: Sodium [Moles/Vol] 138 mmol/L 136-145 [facility] Work Phone: WBC (Bld) [#/Vol] 4.9 10*3/uL 4.4-11.0 [facility] Work Phone: Blood erythrocytes count (nu mber/volume)on 05-28-2022 RBC (Bld) [#/Vol] 3.86 10*6/uL 4.6-6.2 [facility] Work Phone: Blood hemoglobin measurement (mass/volume)on 05-28-2022 Hemoglobin (Bld) [Mass/Vol] 11.7 g/dL 13.0-16. 5 [facility] Work Phone: Blood lymphocytes/100 leukoc yteson 05-28-2022 Lymphocytes/100 WBC (Bld) 11.3 % 19-41 [facility] Work Phone: Blood manual differential co mment interpretation (narrative result)on 05-28-2022 Manual differential comment Santi (Bld) [Interp] SEE COMMENT [facility] Work Phone: Comment on above: LYMPHOPENIA NOTED Blood monocytes/100 leukocyt eson 05-28-2022 Monocytes/100 WBC (Bld) 7.2 % 0-10 [facility] Work Phone: Blood platelet adequacy dete ction by light microscopyon 05-28-2022 Platelets LM Ql (Bld) ADEQUATE ADEQ [facility] Work Phone: Blood platelet mean volumeon 05-28-2022 Platelet mean volume (Bld) [Entitic vol] 9.5 fL 6.2-12.0 [facility] Work Phone: Determination of erythrocyte mean corpuscular volume (MCV)on 05-28-2022 MCV (RBC) [Entitic vol] 87.6 fL 80-94 [facility] Work Phone: Hematocrit Auto (Bld) [Volum e fraction]on 05-28-2022 Hematocrit (Bld) [Volume fraction] 33.8 % 40-54 [facility] Work Phone: Laboratory - Chemistry and C hemistry - challengeon 05-28-2022 CO2 [Moles/Vol] 28.0 mmol/L 21.0-32.0 [facility] Work Phone: Urea nitrogen/Creatinine [Mass ratio] 11.3 mg/mg 10-20 [facility] Work Phone: Laboratory - Hematology and Cell countson 05-28-2022 Anisocytosis Ql (Bld) RARE [facility] Work Phone: Erythrocyte distribution width (RBC) [Entitic vol] 43.0 fL 35.1-43.9 [facility] Work Phone: Erythrocyte distribution width (RBC) [Ratio] 13.6 % 11.6-14.6 [facility] Work Phone: Immature granulocytes/100 WBC (Bld) 0.200 % 0.0-0.9 [facility] Work Phone: Comment on above: IG% - Immature Granu locytes (promyelocytes, myelocytes and metamyelocytes) > 1% indicates that a LEFT SHIFT is Present. MCH (RBC) [Entitic mass] 30.3 pg 27.0-32.0 [facility] Work Phone: Nucleated RBC/100 WBC (Bld) [Ratio] 0 % 0-5 [facility] Work Phone: MCHC Auto (RBC) [Mass/Vol]on 05-28-2022 MCHC (RBC) [Mass/Vol] 34.6 g/dL 32-36 [facility] Work Phone: No Panel Informationon 05-28 Troponin I High Sensitivity 12 pg/mL 3.0-78.0 [facility] Work Phone: Comment on above: Please Note: [place] t Units and Gender Specific Reference Ranges. For more information see Policy Stat Procedure Dorothy High Sensitivity Troponin (TNIH) and attachments. Estimated Creatinine Clearance Calc 67.91 ml/min [facility] Work Phone: Estimated GFR (MDRD) Amer 89 mL/min >60 [facility] Work Phone: Comment on above: GFR Calc Estimated GFR (MDRD) Non-Af Amer 74 mL/min >60 [facility] Work Phone: Comment on above: Non- GFR Calc Platelets bldon 05-28-2022 Platelets (Bld) [#/Vol] 217 10*3/uL 150-450 [facility] Work Phone: RBC morphologyon 05-28-2022 RBC morphology finding Nom (Bld) N CHROM NORMAL NORM C&C [facility] Work Phone: Serum or plasma calcium jaziel urement (mass/volume)on 05-28-2022 Calcium [Mass/Vol] 9.7 mg/dL 8.5-10.1 [facility] Work Phone: Serum or plasma creatinine m easurement (mass/volume)on 05-28-2022 Creatinine [Mass/Vol] 1.06 mg/dL 0.70-1.30 [facility] Work Phone: Comment on above: The validity of the calculated GFR & GFRAA in patients over 70 years has not been determined. Clinical correlation is essential. Serum or plasma urea nitroge n measurement (mass/volume)on 05-28-2022 Urea nitrogen [Mass/Vol] 12 mg/dL 7-18 [facility] Work Phone: Thin prep Papanicolaou smear with manual screeningon 05-28-2022 Thin prep Papanicolaou smear with manual screening 10 5-15 [facility] Work Phone: Serum or plasma cortisol osbaldo surement (mass/volume)on 04-24-2022 Cortisol [Mass/Vol] 31.00 ug/dL 3.44-22.45 [facility] Work Phone: Comment on above: Adult (AM) 5.27 - 22 .45 ug/dL Adult (PM) 3.44 - 16.76 ug/dLPlease note revised CORTISOL reference range effective 2019. Basophil percentageon 2021 Bilirubin [Mass/Vol] 0.30 mg/dL 0.20-1.00 [facility] Work Phone: Comment on above: For patients on eltr ombopag therapy, use of Dimension Dorothy TBIL is not recommended. Cholesterol [Mass/Vol] 103 mg/dL <200 [facility] Work Phone: Comment on above: <200 mg/dL Desirable 200-240 mg/dL Borderline >240 mg/dL High Risk Protein [Mass/Vol] 7.2 g/dL 6.4-8.2 [facility] Work Phone: Triglyceride [Mass/Vol] 128 mg/dL <199 [facility] Work Phone: Comment on above: The drugs N-Acetylcy steine and Metamizole may falsely depress this assay.Serum Triglycerides Reference Interval Normal <150 mg/dL Borderline high 150 - 199 mg/dL High 200 - 499 mg/dL Very High > or = 500 mg/dL Direct bilirubinon Bilirubin.direct [Mass/Vol] 0.10 mg/dL 0.00-0.3 0 [facility] Work Phone: LIPID PANEL (OUTSIDE)on 04-01 LDL:HDL Ratio [facility] Non-HDL Cholesterol [facility] TC:HDL Ratio [facility] VLDL Cholesterol [facility] Laboratory - Chemistry and C hemistry - challengeon 04-17-2022 ALP [Catalytic activity/Vol] 125 U/L 45-117 [facility] Work Phone: ALT [Catalytic activity/Vol] 24 U/L 16-61 [facility] Work Phone: Globulin (S) [Mass/Vol] 3.7 g/dL 2.2-4.2 [facility] Work Phone: Serum or plasma albumin jaziel urement (mass/volume)on 04-17-2022 Albumin [Mass/Vol] 3.5 g/dL 3.2-5.0 [facility] Work Phone: Serum or plasma cholesterol in HDL measurement (mass/volume)on 04-17-2022 Cholesterol in HDL [Mass/Vol] 38 mg/dL >40 [facility] Work Phone: Comment on above: The drugs N-Acetylcy steine and Metamizole may falsely depress this assay. Reference Range HDL <40 mg/dL Low HDL Cholesterol HDL >or= 60 mg/dL High HDL Cholesterol Serum or plasma cholesterol in VLDL measurement (mass/volume)on 04-17-2022 Cholesterol in VLDL [Mass/Vol] 26 mg/dL 5-40 [facility] Work Phone: Serum or plasma low density lipoprotein (LDL) cholesterol measurement (mass/volume)on 04-17-2022 Cholesterol in LDL [Mass/Vol] 39 mg/dL 0-130 [facility] Work Phone: Thin prep Papanicolaou smear with manual screeningon 04-17-2022 Thin prep Papanicolaou smear with manual screening 14 U/L 15-37 [facility] Work Phone: Basic metabolic 2000 panelon 04-05-2022 Anion gap [Moles/Vol] 6 mmol/L Normal 5-16 [facility] Comment on above: Order Comment: Speci men Type: BLOOD SPECIMEN Ordering Facility: [facility] Address: [address] [place] [address] Performed By: #### 2 4321-2 #### [facility] CLIA [id number] [address] [place] [address] [place] Calcium [Mass/Vol] 9.4 mg/dL Normal 8.5-10.5 [facility] Comment on above: Order Comment: Speci men Type: BLOOD SPECIMEN Ordering Facility: [facility] Address: [address] [place] [address] Performed By: #### 2 4321-2 #### [facility] CLIA [id number] [address] [place] [address] [place] Chloride [Moles/Vol] 105 mmol/L Normal 98-107 [facility] Comment on above: Order Comment: Speci men Type: BLOOD SPECIMEN Ordering Facility: [facility] Address: [address] [place] [address] Performed By: #### 2 4321-2 #### [facility] CLIA [id number] [address] [place] [address] [place] CO2 [Moles/Vol] 25 mmol/L Normal 21-32 [facility] Comment on above: Order Comment: Speci men Type: BLOOD SPECIMEN Ordering Facility: [facility] Address: [address] [place] [address] Performed By: #### 2 4321-2 #### [facility] CLIA [id number] [address] [place] [address] [place] Creatinine [Mass/Vol] 0.81 mg/dL Normal 0.50-1.40 [facility] Comment on above: Order Comment: Walter sexton Type: BLOOD SPECIMEN Ordering Facility: [facility] Address: [address] [phone] Result Comment: Nancy ents receiving either N-Acetylcysteine (NAC) or Metamizole prior to venipuncture, may have falsely depressed results. Performed By: #### 2 4321-2 #### [facility] CLIA [id number] [address] [place] [address] [place] ESTIMATED GLOMERULAR FILTRATION RATE 95 mL/min/1.73m??? Normal >=60 [facility] Comment on above: Order Comment: Walter sexton Type: BLOOD SPECIMEN Ordering Facility: [facility] Address: [address] [place], [place] [phone] Result Comment: Abril mated Glomerular Filtration Rate [...] GFR. Performed By: #### 2 4321-2 #### [facility] CLIA [id number] [address] [place] [address] [place] Glucose [Mass/Vol] 177 mg/dL High 70-100 [facility] Comment on above: Order Comment: Walter sexton Type: BLOOD SPECIMEN Ordering Facility: [facility] Address: [address] [phone] Result Comment: The [place] Diabetes Association (ADA) provides guidance for cutoff [...] Standards of Medical Care in Diabetes 2016, [place] [employer]. Diabetes Care. 2016.39(Suppl 1). Results may be falsely elevated after the administration of Sulfapyridine. Results may be falsely depressed after the administration of Sulfasalazine. Performed By: #### 2 4321-2 #### [facility] CLIA [id number] [address] [place] [address] [place] Potassium [Moles/Vol] 5.5 mmol/L High 3.5-5.1 [facility] Comment on above: Order Comment: Speci men Type: BLOOD SPECIMEN Ordering Facility: [facility] Address: [address] [place] [address] Result Comment: Slig ht Hemolysis, Result may be affected. Performed By: #### 2 4321-2 #### [facility] CLIA [id number] [address] [place] [address] [place] Sodium [Moles/Vol] 136 mmol/L Normal 136-145 [facility] Comment on above: Order Comment: Speci men Type: BLOOD SPECIMEN Ordering Facility: [facility] Address: [address] [place] [address] Performed By: #### 2 4321-2 #### [facility] CLIA [id number] [address] [place] [address] [place] Urea nitrogen [Mass/Vol] 15 mg/dL Normal 7-26 [facility] Comment on above: Order Comment: Speci men Type: BLOOD SPECIMEN Ordering Facility: [facility] Address: [address] [place] [address] Result Comment: Slig ht Hemolysis, Result may be affected. Performed By: #### 2 4321-2 #### [facility] CLIA [id number] [address] [place] [address] [place] CBC panel Auto (Bld)on 04-05 Erythrocyte distribution width (RBC) [Ratio] 12.9 % Normal 11.5-15.0 [facility] Comment on above: Order Comment: Speci men Type: BLOOD SPECIMEN Ordering Facility: [facility] Address: [address] [place] [address] Performed By: #### 5 8410-2 #### [facility] CLIA [id number] [address] [place] [address] [place] Hematocrit (Bld) [Volume fraction] 35.7 % Low 39.0-51.0 [facility] Comment on above: Order Comment: Speci men Type: BLOOD SPECIMEN Ordering Facility: [facility] Address: [address] [place] [address] Performed By: #### 5 8410-2 #### [facility] CLIA [id number] [address] [place] [address] [place] Hemoglobin (Bld) [Mass/Vol] 11.9 g/dL Low 13.0-17. 0 [facility] Comment on above: Order Comment: Speci men Type: BLOOD SPECIMEN Ordering Facility: [facility] Address: [address] [place] [address] Performed By: #### 5 8410-2 #### [facility] CLIA [id number] [address] [place] [address] [place] MCH (RBC) [Entitic mass] 28.4 pg Normal 26.0-34.0 [facility] Comment on above: Order Comment: Speci men Type: BLOOD SPECIMEN Ordering Facility: [facility] Address: [address] [place] [address] Performed By: #### 5 8410-2 #### [facility] CLIA [id number] [address] [place] [address] [place] MCHC (RBC) [Mass/Vol] 33.3 g/dL Normal 30.5-36.0 [facility] Comment on above: Order Comment: Speci men Type: BLOOD SPECIMEN Ordering Facility: [facility] Address: [address] [place] [address] Performed By: #### 5 8410-2 #### [facility] CLIA [id number] [address] [place] [address] [place] MCV (RBC) [Entitic vol] 85.2 fL Normal 80.0-100.0 [facility] Comment on above: Order Comment: Speci men Type: BLOOD SPECIMEN Ordering Facility: [facility] Address: [address] [place] [address] Performed By: #### 5 8410-2 #### [facility] CLIA [id number] [address] [place] [address] [place] Nucleated RBC (Bld) [#/Vol] 10*3/uL Normal <0.01 [facility] Comment on above: Order Comment: Speci men Type: BLOOD SPECIMEN Ordering Facility: [facility] Address: [address] [place] [address] Performed By: #### 5 8410-2 #### [facility] CLIA [id number] [address] [place] [address] [place] Platelet mean volume (Bld) [Entitic vol] 8.9 fL Low 9.0-12.7 [facility] Comment on above: Order Comment: Speci men Type: BLOOD SPECIMEN Ordering Facility: [facility] Address: [address] [place] [address] Performed By: #### 5 8410-2 #### [facility] CLIA [id number] [address] [place] [address] [place] Platelets (Bld) [#/Vol] 232 10*3/uL Normal 150-400 [facility] Comment on above: Order Comment: Speci men Type: BLOOD SPECIMEN Ordering Facility: [facility] Address: [address] [place] [address] Performed By: #### 5 8410-2 #### [facility] CLIA [id number] [address] [place] [address] [place] RBC (Bld) [#/Vol] 4.19 10*6/uL Low 4.20-6.00 [facility] Comment on above: Order Comment: Speci men Type: BLOOD SPECIMEN Ordering Facility: [facility] Address: [address] [place] [address] Performed By: #### 5 8410-2 #### [facility] CLIA [id number] [address] [place], [place] [address] [facility] [place] WBC (Bld) [#/Vol] 6.41 10*3/uL Normal 3.70-11.00 [facility] Comment on above: Order Comment: Speci men Type: BLOOD SPECIMEN Ordering Facility: [facility] Address: [address] [place] [phone] Performed By: #### 5 8410-2 #### [facility] CLIA [id number] [address] [place], [place] [address] [facility] [place] CT BRAIN WO IVCONon 04-05-[address] BRAIN WO IVCON * * *Final Report* * * DATE OF EXAM: Apr 05 2022 2:00PM [facility] 0504 - CT BRAIN WO IVCON / [...] base and imaged soft tissues are unremarkable. Agricultural Education Professor (topogram) images: No acute findings IMPRESSION: No significant change. No acute intracranial process Storage Consultant: FAWN Transcribe Date/Time: Apr 05 2022 2:06P Dictated by : CEDRIC MARCUS MD This examination was interpreted and the report reviewed and electronically signed by: CEDRIC MARCUS MD on Apr 05 2022 2:08PM EST [id number] [facility] ECG COMPLETEon 04-05-2022 ECG COMPLETE Ventricular Rate : 9 2 BPM Atrial Rate : 92 BPM P-R Interval : 166 ms QRS Duration : 92 ms Q-T Interval : 354 ms QTC Calculation(Bazett) : 437 ms Calculated P [place] : 49 degrees Calculated R [place] : 22 degrees Calculated T [place] : 12 degrees Normal sinus rhythm Normal ECG No previous ECGs available Confirmed by JASMIN ZUÑIGA MD ([id number]) on 04/05/2022 3:27:39 PM NAME : MICHAEL BATES PID : [id number] : 1955 Gender : Male Race : ORD : [id number] Procedure Date : Apr 05 2022 13:12:29 Edit Date : Apr 05 2022 15:27:40 Diagnosis: Normal sinus rhythm Normal ECG No previous ECGs available Confirmed by JASMIN ZUÑIGA MD ([id number]) on 04/05/2022 3:27:39 PM Test Reason : STAT Location : 0 : ED 33 Overread By : JASMIN ZUÑIGA MD Edited By : JASMIN ZUÑIGA MD Referred By : , Acquired by : THEODORE [facility] ED NOTEon 04-05-2022 ED NOTE HNO ID: [id number] Author: Jeannette Merchant RN Service: ? Author Type: Registered Nurse Type: ED Notes Filed: 04/05/2022 3:28 PM Note Text: Pt DC at this time with family. All papers reviewed. All questions answered. [facility] ED NOTE HNO ID: [id number] Author: Renan Martinez RN Service: ? Author Type: Registered Nurse Type: ED Notes Filed: 04/05/2022 1:07 PM Note Text: Pt reportedly had an acute onset of tremors while in the hospital. Pt was made an Emergency on the grounds and brought to the ed with family. [facility] ED PROV NOTEon 04-05-2022 ED PROV NOTE HNO ID: [id number] Author: Reji Rudd MD Service: Emergency Medicine [...] 06/30/2016 Multi level, worse L2-L3 - Diabetes ([facility]) - Diabetic eye exam ([facility]) 03/19/2017 Last done: 10/01/2018 - Elevated LFTs [...] - 2D ECHO (EXEP) 01/16/2017 EF=60%, 1+ SC and TI - CATARACT EXTRACTION HX Left [...] Dr. 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 - [...] BP Puls (more content not included)... Normal [facility] TROPONIN I HIGH SENSITIVITYo n 04-05-2022 Tropinin I.cardiac panel High sensitivity method <2.5 Normal 0.0-54.0 [facility] Comment on above: Order Comment: Speci men Type: BLOOD SPECIMEN Ordering Facility: [facility] Address: [address] [place], [place] [phone] Result Comment: This assay uses different antibodies than our current assay, and assays, even by the same camp manager may recognize different regions of the antibody and cannot be used interchangeably. Expect results of this assay to run higher than the previous assay. Performed By: #### H STROP #### [facility] CLIA [id number] [address] [place] [address] [place] Absolute lymphocyte counton 03-22-2022 Lymphocytes Auto (Unsp spec) [#/Vol] 1.34 10*3/uL 0.83-4.51 [facility] Work Phone: Basophil percentageon 2021 Basophil percentage 0-5 SEEN /hpf 0-[address] [facility] Work Phone: [phone] Basophils/100 WBC (Bld) 0.9 % 0-1 [facility] Work Phone: Chloride [Moles/Vol] 101 mmol/L 98-107 [facility] Work Phone: Eosinophils/100 WBC (Bld) 5.0 % 0-5 [facility] Work Phone: Glucose [Mass/Vol] 163 mg/dL 74-106 [facility] Work Phone: Comment on above: Fasting Glucose resu lt greater than or equal to 126 mg/dL suggests DIABETES MELLITUS per A.D.A. criteria. Neutrophils (Bld) [#/Vol] 4.5 10*3/uL 2.0-7.7 [facility] Work Phone: Neutrophils/100 WBC (Bld) 65.3 % 47-70 [facility] Work Phone: Potassium [Moles/Vol] 4.7 mmol/L 3.5-5.1 [facility] Work Phone: Sodium [Moles/Vol] 134 mmol/L 136-145 [facility] Work Phone: WBC (Bld) [#/Vol] 6.9 10*3/uL 4.4-11.0 [facility] Work Phone: Bilirubin Test strip Ql (U)o n 03-22-2022 Bilirubin Ql (U) Negative Negative [facility] Work Phone: Blood erythrocytes count (nu mber/volume)on 03-22-2022 RBC (Bld) [#/Vol] 4.04 10*6/uL 4.6-6.2 [facility] Work Phone: Blood hemoglobin measurement (mass/volume)on 03-22-2022 Hemoglobin (Bld) [Mass/Vol] 11.6 g/dL 13.0-16. 5 [facility] Work Phone: Blood lymphocytes/100 leukoc yteson 03-22-2022 Lymphocytes/100 WBC (Bld) 19.5 % 19-41 [facility] Work Phone: Blood monocytes/100 leukocyt eson 03-22-2022 Monocytes/100 WBC (Bld) 8.7 % 0-10 [facility] Work Phone: [phone] Blood platelet mean volumeon 03-22-2022 Platelet mean volume (Bld) [Entitic vol] 9.7 fL 6.2-12.0 [facility] Work Phone: Determination of erythrocyte mean corpuscular volume (MCV)on 03-22-2022 MCV (RBC) [Entitic vol] 86.1 fL 80-94 [facility] Work Phone: [phone] Hematocrit Auto (Bld) [Volum e fraction]on 03-22-2022 Hematocrit (Bld) [Volume fraction] 34.8 % 40-54 [facility] Work Phone: Ketones Test strip Ql (U)on 03-22-2022 Ketones Ql (U) Negative Negative [facility] Work Phone: Laboratory - Chemistry and C hemistry - challengeon 03-22-2022 CO2 [Moles/Vol] 25.0 mmol/L 21.0-32.0 [facility] Work Phone: [phone] Magnesium [Mass/Vol] 1.8 mg/dL 1.6-2.6 [facility] Work Phone: [phone] Urea nitrogen/Creatinine [Mass ratio] 15.8 mg/mg 10-20 [facility] Work Phone: [phone] Laboratory - Hematology and Cell countson 03-22-2022 Erythrocyte distribution width (RBC) [Entitic vol] 38.9 fL 35.1-43.9 [facility] Work Phone: [phone] Erythrocyte distribution width (RBC) [Ratio] 12.5 % 11.6-14.6 [facility] Work Phone: [phone] Immature granulocytes/100 WBC (Bld) 0.600 % 0.0-0.9 [facility] Work Phone: [phone] Comment on above: IG% - Immature Granu locytes (promyelocytes, myelocytes and metamyelocytes) > 1% indicates that a LEFT SHIFT is Present. MCH (RBC) [Entitic mass] 28.7 pg 27.0-32.0 [facility] Work Phone: Nucleated RBC/100 WBC (Bld) [Ratio] 0 % 0-5 [facility] Work Phone: MCHC Auto (RBC) [Mass/Vol]on 03-22-2022 MCHC (RBC) [Mass/Vol] 33.3 g/dL 32-36 [facility] Work Phone: Mucus LM Ql (Urine sed)on Mucus Ql (Urine sed) 0 SEEN /hpf [facility] Work Phone: Nitrite Test strip Ql (U)on 03-22-2022 Nitrite Ql (U) Negative Negative [facility] Work Phone: No Panel Informationon 03-22 Estimated Creatinine Clearance Calc 63.15 ml/min [facility] Work Phone: Estimated GFR (MDRD) Amer 82 mL/min >60 [facility] Work Phone: Comment on above: GFR Calc Estimated GFR (MDRD) Non-Af Amer 68 mL/min >60 [facility] Work Phone: Comment on above: Non- GFR Calc Platelets bldon 03-22-2022 Platelets (Bld) [#/Vol] 223 10*3/uL 150-450 [facility] Work Phone: Protein Test strip Ql (U)on 03-22-2022 Protein Ql (U) Negative Negative [facility] Work Phone: Serum or plasma calcium jaziel urement (mass/volume)on 03-22-2022 Calcium [Mass/Vol] 8.7 mg/dL 8.5-10.1 [facility] Work Phone: Serum or plasma creatinine m easurement (mass/volume)on 03-22-2022 Creatinine [Mass/Vol] 1.14 mg/dL 0.70-1.30 [facility] Work Phone: Comment on above: The validity of the calculated GFR & GFRAA in patients over 70 years has not been determined. Clinical correlation is essential. Serum or plasma urea nitroge n measurement (mass/volume)on 03-22-2022 Urea nitrogen [Mass/Vol] 18 mg/dL 7-18 [facility] Work Phone: Squamous epithelial cells de tection in urine sediment by light microscopyon 03-22-2022 Epithelial cells.squamous LM Ql (Urine sed) 5-10 SEEN /hpf 0-5 [facility] Work Phone: Thin prep Papanicolaou smear with manual screeningon 03-22-2022 Thin prep Papanicolaou smear with manual screening 8 5-15 [facility] Work Phone: [phone] Urine blood detectionon 03-02 RBC Ql (U) Negative Negative [facility] Work Phone: [phone] RBC Ql (U) 0 SEEN /hpf 0-5 [facility] Work Phone: Urine clarityon 03-22-2022 Clarity (U) Sl. Cloudy Clear [facility] Work Phone: Urine color determinationon 03-22-2022 Color (U) Yellow Yellow [facility] Work Phone: Urine glucose detectionon Glucose Ql (U) 50 mg/dl Normal [facility] Work Phone: Urine leukocyte esterase det ection by dipstickon 03-22-2022 Leukocyte esterase Test strip Ql (U) 25 /ul Negative [facility] Work Phone: Urine pHon 03-22-2022 pH (U) 6.0 [pH] 5.0 - 8.0 [facility] Work Phone: [phone] Urine sediment bacteria coun t by microscopy (number/high power field)on 03-22-2022 Bacteria LM.HPF (Urine sed) [#/Area] 0 /[HPF] None Seen [facility] Work Phone: Urine specific gravity measu rementon 03-22-2022 Specific gravity (U) [Rel density] 1.010 1.002-1.03 0 [facility] Work Phone: [phone] Urobilinogen Auto test strip Ql (U)on 03-22-2022 Urobilinogen Ql (U) Normal mg/dl Normal [facility] Work Phone: [phone] No Panel Informationon 03-19 [facility] Absolute lymphocyte counton 02-04-2022 Lymphocytes Auto (Unsp spec) [#/Vol] 1.27 10*3/uL 0.83-4.51 [facility] Work Phone: Basophil percentageon 2021 Basophils/100 WBC (Bld) 0.8 % 0-1 [facility] Work Phone: Chloride [Moles/Vol] 105 mmol/L 98-107 [facility] Work Phone: Eosinophils/100 WBC (Bld) 4.4 % 0-5 [facility] Work Phone: [phone] Glucose [Mass/Vol] 198 mg/dL 74-106 [facility] Work Phone: [phone] Comment on above: Fasting Glucose resu lt greater than or equal to 126 mg/dL suggests DIABETES MELLITUS per A.D.A. criteria. Neutrophils (Bld) [#/Vol] 2.9 10*3/uL 2.0-7.7 [facility] Work Phone: Neutrophils/100 WBC (Bld) 60.8 % 47-70 [facility] Work Phone: Potassium [Moles/Vol] 4.2 mmol/L 3.5-5.1 [facility] Work Phone: Sodium [Moles/Vol] 136 mmol/L 136-145 [facility] Work Phone: WBC (Bld) [#/Vol] 4.8 10*3/uL 4.4-11.0 [facility] Work Phone: [phone] Blood erythrocytes count (nu mber/volume)on 02-04-2022 RBC (Bld) [#/Vol] 3.98 10*6/uL 4.6-6.2 [facility] Work Phone: [phone] Blood hemoglobin measurement (mass/volume)on 02-04-2022 Hemoglobin (Bld) [Mass/Vol] 11.6 g/dL 13.0-16. 5 [facility] Work Phone: Blood lymphocytes/100 leukoc yteson 02-04-2022 Lymphocytes/100 WBC (Bld) 26.5 % 19-41 [facility] Work Phone: Blood monocytes/100 leukocyt eson 02-04-2022 Monocytes/100 WBC (Bld) 7.1 % 0-10 [facility] Work Phone: [phone] Blood platelet mean volumeon 02-04-2022 Platelet mean volume (Bld) [Entitic vol] 9.5 fL 6.2-12.0 [facility] Work Phone: [phone] Determination of erythrocyte mean corpuscular volume (MCV)on 02-04-2022 MCV (RBC) [Entitic vol] 90.7 fL 80-94 [facility] Work Phone: [phone] Hematocrit Auto (Bld) [Volum e fraction]on 02-04-2022 Hematocrit (Bld) [Volume fraction] 36.1 % 40-54 [facility] Work Phone: [phone] Laboratory - Chemistry and C hemistry - challengeon 02-04-2022 CO2 [Moles/Vol] 28.0 mmol/L 21.0-32.0 [facility] Work Phone: [phone] Urea nitrogen/Creatinine [Mass ratio] 21.5 mg/mg 10-20 [facility] Work Phone: [phone] Laboratory - Hematology and Cell countson 02-04-2022 Erythrocyte distribution width (RBC) [Entitic vol] 40.2 fL 35.1-43.9 [facility] Work Phone: [phone] Erythrocyte distribution width (RBC) [Ratio] 12.1 % 11.6-14.6 [facility] Work Phone: [phone] Immature granulocytes/100 WBC (Bld) 0.400 % 0.0-0.9 [facility] Work Phone: Comment on above: IG% - Immature Granu locytes (promyelocytes, myelocytes and metamyelocytes) > 1% indicates that a LEFT SHIFT is Present. MCH (RBC) [Entitic mass] 29.1 pg 27.0-32.0 [facility] Work Phone: Nucleated RBC/100 WBC (Bld) [Ratio] 0 % 0-5 [facility] Work Phone: MCHC Auto (RBC) [Mass/Vol]on 02-04-2022 MCHC (RBC) [Mass/Vol] 32.1 g/dL 32-36 [facility] Work Phone: No Panel Informationon 02-04 Estimated GFR (MDRD) Amer 110 mL/min >60 [facility] Work Phone: Comment on above: GFR Calc Estimated GFR (MDRD) Non-Af Amer 91 mL/min >60 [facility] Work Phone: Comment on above: Non- GFR Calc Platelets bldon 02-04-2022 Platelets (Bld) [#/Vol] 186 10*3/uL 150-450 [facility] Work Phone: Serum or plasma calcium jaziel urement (mass/volume)on 02-04-2022 Calcium [Mass/Vol] 8.6 mg/dL 8.5-10.1 [facility] Work Phone: Serum or plasma creatinine m easurement (mass/volume)on 02-04-2022 Creatinine [Mass/Vol] 0.88 mg/dL 0.70-1.30 [facility] Work Phone: Comment on above: The validity of the calculated GFR & GFRAA in patients over 70 years has not been determined. Clinical correlation is essential. Serum or plasma urea nitroge n measurement (mass/volume)on 02-04-2022 Urea nitrogen [Mass/Vol] 19 mg/dL 7-18 [facility] Work Phone: Thin prep Papanicolaou smear with manual screeningon 02-04-2022 Thin prep Papanicolaou smear with manual screening 3 5-15 [facility] Work Phone: Free thyroxine indexon 12-18 Free T4 index Calc [Mass/Vol] 2.8 1.4-4.5 [facility] Work Phone: Laboratory - Chemistry and C hemistry - challengeon 12-18-2021 T4 [Mass/Vol] 8.2 ug/dL 4.5-12.1 [facility] Work Phone: No Panel Informationon 12-18 Thyroid Stimulating Hormone (TSH) 2.72 uIU/mL 0.358-3.74 [facility] Work Phone: T3 uptakeon 12-18-2021 T3RU 34 % 33-40 [facility] Work Phone: CNPNon 11-22-2021 CNPN Telephone ([facility]) MICHAEL BATES ([id number]) 1955 M Date Time Provider Department 11/22/21 [...] tablet by mouth once daily. Managed by [facility] - omega-3 fatty acids 1,000 [...] strain [S13.9XXA] 07/30/2010 08/30/2010 Other physical therapy [[id number]] 08/16/2010 08/30/2010 Essential hypertension, benign [I10] 01/17/2012 [...] Status:Closed by NADIR GRADY on 12/03/21 Normal [facility] Absolute lymphocyte counton 11-02-2021 Lymphocytes Auto (Unsp spec) [#/Vol] 1.30 10*3/uL 0.83-4.51 [facility] Work Phone: Basophil percentageon 2021 Basophils/100 WBC (Bld) 0.8 % 0-1 [facility] Work Phone: Chloride [Moles/Vol] 105 mmol/L 98-107 [facility]: Eosinophils/100 WBC (Bld) 3.4 % 0-5 [facility] Work Phone: Glucose [Mass/Vol] 119 mg/dL 74-106 [facility] Work Phone: [phone] Comment on above: Fasting Glucose resu lt from 100 to 125 mg/dL suggests IMPAIRED HOMEOSTASIS per A.D.A. criteria. Neutrophils (Bld) [#/Vol] 3.1 10*3/uL 2.0-7.7 [facility] Work Phone: Neutrophils/100 WBC (Bld) 61.5 % 47-70 [facility] Work Phone: Potassium [Moles/Vol] 4.3 mmol/L 3.5-5.1 [facility] Work Phone: Sodium [Moles/Vol] 137 mmol/L 136-145 [facility] Work Phone: [phone] WBC (Bld) [#/Vol] 5.1 10*3/uL 4.4-11.0 [facility] Work Phone: [phone] Basophil percentage 0 SEEN /hpf [facility] Work Phone: [phone] Bilirubin Test strip Ql (U)o n 11-02-2021 Bilirubin Ql (U) Negative Negative [facility] Work Phone: [phone] Blood erythrocytes count (nu mber/volume)on 11-02-2021 RBC (Bld) [#/Vol] 4.13 10*6/uL 4.6-6.2 [facility]: [phone] Blood hemoglobin measurement (mass/volume)on 11-02-2021 Hemoglobin (Bld) [Mass/Vol] 12.0 g/dL 13.0-16. 5 [facility] Work Phone: Blood lymphocytes/100 leukoc yteson 11-02-2021 Lymphocytes/100 WBC (Bld) 25.6 % 19-41 [facility] Work Phone: Blood monocytes/100 leukocyt eson 11-02-2021 Monocytes/100 WBC (Bld) 8.5 % 0-10 [facility] Work Phone: [phone] Blood platelet mean volumeon 11-02-2021 Platelet mean volume (Bld) [Entitic vol] 9.1 fL 6.2-12.0 [facility] Work Phone: [phone] Determination of erythrocyte mean corpuscular volume (MCV)on 11-02-2021 MCV (RBC) [Entitic vol] 86.2 fL 80-94 [facility] Work Phone: Hematocrit Auto (Bld) [Volum e fraction]on 11-02-2021 Hematocrit (Bld) [Volume fraction] 35.6 % 40-54 [facility] Work Phone: [phone] Ketones Test strip Ql (U)on 11-02-2021 Ketones Ql (U) Negative Negative [facility] Work Phone: [phone] Laboratory - Chemistry and C hemistry - challengeon 11-02-2021 CO2 [Moles/Vol] 26.0 mmol/L 21.0-32.0 [facility] Work Phone: Urea nitrogen/Creatinine [Mass ratio] 19.8 mg/mg 10-20 [facility] Work Phone: Laboratory - Hematology and Cell countson 11-02-2021 Erythrocyte distribution width (RBC) [Entitic vol] 39.7 fL 35.1-43.9 [facility] Work Phone: Erythrocyte distribution width (RBC) [Ratio] 12.6 % 11.6-14.6 [facility] Work Phone: Immature granulocytes/100 WBC (Bld) 0.200 % 0.0-0.9 [facility] Work Phone: Comment on above: IG% - Immature Granu locytes (promyelocytes, myelocytes and metamyelocytes) > 1% indicates that a LEFT SHIFT is Present. MCH (RBC) [Entitic mass] 29.1 pg 27.0-32.0 [facility] Work Phone: Nucleated RBC/100 WBC (Bld) [Ratio] 0 % 0-5 [facility] Work Phone: MCHC Auto (RBC) [Mass/Vol]on 11-02-2021 MCHC (RBC) [Mass/Vol] 33.7 g/dL 32-36 [facility] Work Phone: Mucus LM Ql (Urine sed)on Mucus Ql (Urine sed) 0 SEEN /hpf [facility] Work Phone: Nitrite Test strip Ql (U)on 11-02-2021 Nitrite Ql (U) Negative Negative [facility] Work Phone: No Panel Informationon 11-02 Estimated Creatinine Clearance Calc 84.88 ml/min [facility] Work Phone: Estimated GFR (MDRD) Amer 114 mL/min >60 [facility] Work Phone: Comment on above: GFR Calc Estimated GFR (MDRD) Non-Af Amer 94 mL/min >60 [facility] Work Phone: Comment on above: Non- GFR Calc Platelets bldon 11-02-2021 Platelets (Bld) [#/Vol] 170 10*3/uL 150-450 [facility] Work Phone: Protein Test strip Ql (U)on 11-02-2021 Protein Ql (U) Negative Negative [facility] Work Phone: Serum or plasma calcium jaziel urement (mass/volume)on 11-02-2021 Calcium [Mass/Vol] 9.2 mg/dL 8.5-10.1 [facility] Work Phone: Serum or plasma creatinine m easurement (mass/volume)on 11-02-2021 Creatinine [Mass/Vol] 0.86 mg/dL 0.70-1.30 [facility] Work Phone: Comment on above: The validity of the calculated GFR & GFRAA in patients over 70 years has not been determined. Clinical correlation is essential. Serum or plasma urea nitroge n measurement (mass/volume)on 11-02-2021 Urea nitrogen [Mass/Vol] 17 mg/dL 7-18 [facility] Work Phone: Squamous epithelial cells de tection in urine sediment by light microscopyon 11-02-2021 Epithelial cells.squamous LM Ql (Urine sed) 0 SEEN /hpf [facility] Work Phone: Thin prep Papanicolaou smear with manual screeningon 11-02-2021 Thin prep Papanicolaou smear with manual screening 6 5-15 [facility] Work Phone: Urine blood detectionon RBC Ql (U) Negative Negative [facility] Work Phone: RBC Ql (U) 0 SEEN /hpf [facility] Work Phone: Urine clarityon 11-02-2021 Clarity (U) Clear Clear [facility] Work Phone: Urine color determinationon 11-02-2021 Color (U) Yellow Yellow [facility] Work Phone: Urine glucose detectionon Glucose Ql (U) Normal mg/dl Normal [facility] Work Phone: Urine leukocyte esterase det ection by dipstickon 11-02-2021 Leukocyte esterase Test strip Ql (U) Negative Negative [facility] Work Phone: Urine pHon 11-02-2021 pH (U) 6.0 [pH] [facility] Work Phone: Urine sediment bacteria coun t by microscopy (number/high power field)on 11-02-2021 Bacteria LM.HPF (Urine sed) [#/Area] 0 /[HPF] None Seen [facility] Work Phone: Urine specific gravity measu rementon 11-02-2021 Specific gravity (U) [Rel density] 1.010 [facility] Work Phone: Urobilinogen Auto test strip Ql (U)on 11-02-2021 Urobilinogen Ql (U) Normal mg/dl Normal [facility] Work Phone: Basophil percentageon 2021 Bilirubin [Mass/Vol] 0.20 mg/dL 0.20-1.00 [facility] Work Phone: Comment on above: For patients on eltr ombopag therapy, use of Dimension Dorothy TBIL is not recommended. Cholesterol [Mass/Vol] 101 mg/dL <200 [facility] Work Phone: Comment on above: <200 mg/dL Desirable 200-240 mg/dL Borderline >240 mg/dL High Risk Protein [Mass/Vol] 7.5 g/dL 6.4-8.2 [facility] Work Phone: Triglyceride [Mass/Vol] 85 mg/dL [facility] Work Phone: Comment on above: The drugs N-Acetylcy steine and Metamizole may falsely depress this assay.Serum Triglycerides Reference Interval Normal <150 mg/dL Borderline high 150 - 199 mg/dL High 200 - 499 mg/dL Very High > or = 500 mg/dL Direct bilirubinon Bilirubin.direct [Mass/Vol] 0.09 mg/dL 0.00-0.3 0 [facility] Work Phone: Laboratory - Chemistry and C hemistry - challengeon 10-18-2021 ALP [Catalytic activity/Vol] 123 U/L 45-117 [facility] Work Phone: ALT [Catalytic activity/Vol] 26 U/L 16-61 [facility] Work Phone: Globulin (S) [Mass/Vol] 3.7 g/dL 2.2-4.2 [facility] Work Phone: Serum or plasma albumin jaziel urement (mass/volume)on 10-18-2021 Albumin [Mass/Vol] 3.8 g/dL 3.2-5.0 [facility] Work Phone: Serum or plasma cholesterol in HDL measurement (mass/volume)on 10-18-2021 Cholesterol in HDL [Mass/Vol] 42 mg/dL [facility] Work Phone: Comment on above: The drugs N-Acetylcy steine and Metamizole may falsely depress this assay. Reference Range HDL <40 mg/dL Low HDL Cholesterol HDL >or= 60 mg/dL High HDL Cholesterol Serum or plasma cholesterol in VLDL measurement (mass/volume)on 10-18-2021 Cholesterol in VLDL [Mass/Vol] 17 mg/dL 5-40 [facility] Work Phone: Serum or plasma low density lipoprotein (LDL) cholesterol measurement (mass/volume)on 10-18-2021 Cholesterol in LDL [Mass/Vol] 42 mg/dL 0-130 [facility] Work Phone: Thin prep Papanicolaou smear with manual screeningon 10-18-2021 Thin prep Papanicolaou smear with manual screening 19 U/L 15-37 [facility] Work Phone: Absolute lymphocyte counton 10-16-2021 Lymphocytes Auto (Unsp spec) [#/Vol] 1.24 10*3/uL 0.83-4.51 [facility] Work Phone: Basophil percentageon 2021 Basophils/100 WBC (Bld) 0.7 % 0-1 [facility] Work Phone: Bilirubin [Mass/Vol] 0.30 mg/dL 0.20-1.00 [facility] Work Phone: [phone] Comment on above: For patients on eltr ombopag therapy, use of Dimension Dorothy TBIL is not recommended. Chloride [Moles/Vol] 105 mmol/L 98-107 [facility] Work Phone: Eosinophils/100 WBC (Bld) 4.1 % 0-5 [facility] Work Phone: Glucose [Mass/Vol] 136 mg/dL 74-106 [facility] Work Phone: [phone] Comment on above: Fasting Glucose resu lt greater than or equal to 126 mg/dL suggests DIABETES MELLITUS per A.D.A. criteria. Neutrophils (Bld) [#/Vol] 3.4 10*3/uL 2.0-7.7 [facility] Work Phone: Neutrophils/100 WBC (Bld) 63.2 % 47-70 [facility] Work Phone: Potassium [Moles/Vol] 4.4 mmol/L 3.5-5.1 [facility] Work Phone: Protein [Mass/Vol] 7.7 g/dL 6.4-8.2 [facility] Work Phone: Sodium [Moles/Vol] 137 mmol/L 136-145 [facility] Work Phone: WBC (Bld) [#/Vol] 5.4 10*3/uL 4.4-11.0 [facility] Work Phone: Blood erythrocytes count (nu mber/volume)on 10-16-2021 RBC (Bld) [#/Vol] 4.11 10*6/uL 4.6-6.2 [facility] Work Phone: [phone] Blood hemoglobin measurement (mass/volume)on 10-16-2021 Hemoglobin (Bld) [Mass/Vol] 12.2 g/dL 13.0-16. 5 [facility] Work Phone: Blood lymphocytes/100 leukoc yteson 10-16-2021 Lymphocytes/100 WBC (Bld) 22.9 % 19-41 [facility] Work Phone: Blood monocytes/100 leukocyt eson 10-16-2021 Monocytes/100 WBC (Bld) 8.7 % 0-10 [facility] Work Phone: Blood platelet mean volumeon 10-16-2021 Platelet mean volume (Bld) [Entitic vol] 9.1 fL 6.2-12.0 [facility] Work Phone: [phone] Determination of erythrocyte mean corpuscular volume (MCV)on 10-16-2021 MCV (RBC) [Entitic vol] 87.3 fL 80-94 [facility] Work Phone: Hematocrit Auto (Bld) [Volum e fraction]on 10-16-2021 Hematocrit (Bld) [Volume fraction] 35.9 % 40-54 [facility] Work Phone: [phone] INR in Blood by Coagulation assayon 10-16-2021 INR Coag (Bld) [Relative time] 1.0 {INR} [facility] Work Phone: [phone] Laboratory - Chemistry and C hemistry - challengeon 10-16-2021 ALP [Catalytic activity/Vol] 140 U/L 45-117 [facility] Work Phone: ALT [Catalytic activity/Vol] 30 U/L 16-61 [facility] Work Phone: CO2 [Moles/Vol] 28.0 mmol/L 21.0-32.0 [facility] Work Phone: Globulin (S) [Mass/Vol] 3.9 g/dL 2.2-4.2 [facility] Work Phone: Urea nitrogen/Creatinine [Mass ratio] 37.7 mg/mg 10-20 [facility] Work Phone: Laboratory - Coagulationon 0 10-16-2021 aPTT Coag (Bld) [Time] 29.5 [facility] Work Phone: PT Coag (PPP) [Time] 12.9 s 11.7-14.[address] [facility] [facility] Work Phone: Laboratory - Hematology and Cell countson 10-16-2021 Erythrocyte distribution width (RBC) [Entitic vol] 40.0 fL 35.1-43.9 [facility] Work Phone: Erythrocyte distribution width (RBC) [Ratio] 12.5 % 11.6-14.6 [facility] Work Phone: Immature granulocytes/100 WBC (Bld) 0.400 % 0.0-0.9 [facility] Work Phone: Comment on above: IG% - Immature Granu locytes (promyelocytes, myelocytes and metamyelocytes) > 1% indicates that a LEFT SHIFT is Present. MCH (RBC) [Entitic mass] 29.7 pg 27.0-32.0 [facility] Work Phone: Nucleated RBC/100 WBC (Bld) [Ratio] 0 % 0-5 [facility] Work Phone: MCHC Auto (RBC) [Mass/Vol]on 10-16-2021 MCHC (RBC) [Mass/Vol] 34.0 g/dL 32-36 [facility] Work Phone: No Panel Informationon 10-16 Estimated Creatinine Clearance Calc 89.02 ml/min [facility] Work Phone: Estimated GFR (MDRD) Amer 120 mL/min >60 [facility] Work Phone: Comment on above: GFR Calc Estimated GFR (MDRD) Non-Af Amer 99 mL/min >60 [facility] Work Phone: Comment on above: Non- GFR Calc Troponin I High Sensitivity 5 pg/mL 3.0-78.0 [facility] Work Phone: Comment on above: Please Note: New Yajaira t Units and Gender Specific Reference Ranges. For more information see Policy Stat Procedure Dorothy High Sensitivity Troponin (TNIH) and attachments. SARS-CoV-2 Antigen (Rapid) [facility] Work Phone: Platelets bldon 10-16-2021 Platelets (Bld) [#/Vol] 182 10*3/uL 150-450 [facility] Work Phone: Serum or plasma albumin jaziel urement (mass/volume)on 10-16-2021 Albumin [Mass/Vol] 3.8 g/dL 3.2-5.0 [facility] Work Phone: Serum or plasma albumin/glob ulin mass ratioon 10-16-2021 Albumin/Globulin [Mass ratio] 1.0 {ratio} 0.9-2.4 [facility] Work Phone: Serum or plasma calcium jaziel urement (mass/volume)on 10-16-2021 Calcium [Mass/Vol] 8.9 mg/dL 8.5-10.1 [facility] Work Phone: Serum or plasma creatinine m easurement (mass/volume)on 10-16-2021 Creatinine [Mass/Vol] 0.82 mg/dL 0.70-1.30 [facility] Work Phone: Comment on above: The validity of the calculated GFR & GFRAA in patients over 70 years has not been determined. Clinical correlation is essential. Serum or plasma urea nitroge n measurement (mass/volume)on 10-16-2021 Urea nitrogen [Mass/Vol] 31 mg/dL 7-18 [facility] Work Phone: Thin prep Papanicolaou smear with manual screeningon 10-16-2021 Thin prep Papanicolaou smear with manual screening 17 U/L 15-37 [facility] Work Phone: Thin prep Papanicolaou smear with manual screening 4 5-15 [facility] Work Phone: XR Chest PA and Lateralon IMPRESSION: No acute radiographic abnormality. Storage Consultant: FAWN Transcribe Date/Time: Jun 27 2021 4:09P Dictated by : ANDI MEDLEY MD This examination was interpreted and the report reviewed and electronically signed by: ANDI MEDLEY MD on Jun 27 2021 4:10PM [facility] DIVISION OF RADIOLOGY * * *Final Report* [...] the thoracic spine. DIVISION OF RADIOLOGY [facility] * * *Final Report* * [...] spine. IMPRESSION IMPRESSION: No acute radiographic abnormality. Storage Consultant: PSCB Transcribe Date/Time: Jun 27 2021 4:09P Dictated by : ANDI MEDLEY MD This examination was interpreted and the report reviewed and electronically signed by: ANDI MEDLEY MD on Jun 27 2021 4:10PM EST [facility] Radiology Study observation (narrative) [facility] XR Chest PA and LateralOrder ed By: [facility] Provider on 06-27-2021 [facility] XR Shoulder - right 2 Viewso n 10-09-2020 IMPRESSION: Degenerative changes of the RIGHT shoulder without acute osseous abnormality. Storage Consultant: PSCB Transcribe Date/Time: Oct 09 2020 12:07P Dictated by : NICOLA HOLMAN MD This examination was interpreted and the report reviewed and electronically signed by: NICOLA HOLMAN MD on Oct 09 2020 12:10PM [facility] DIVISION OF RADIOLOGY * * *Final Report* [...] lung are clear. DIVISION OF RADIOLOGY Provider, Michelle Sams - 10/09/2020 * * *Final Report* * [...] the RIGHT shoulder without acute osseous abnormality. Storage Consultant: PSCB Transcribe Date/Time: Oct 09 2020 12:07P Dictated by : NICOLA HOLMAN MD This examination was interpreted and the report reviewed and electronically signed by: NICOLA HOLMAN MD on Oct 09 2020 12:10PM EST [facility] Radiology Study observation (narrative) [facility] XR Shoulder - right 2 ViewsO rdered By: Ccf Provider on 10-09-2020 [facility] XR Chest PA and Lateralon IMPRESSION: No definite acute radiographic abnormality. Storage Consultant: PSCB Transcribe Date/Time: Sep 08 2020 9:06A Dictated by : DASH VALDEZ DO This examination was interpreted and the report reviewed and electronically signed by: DASH VALDEZ DO on Sep 08 2020 9:11AM [facility] DIVISION OF RADIOLOGY * * *Final Report* [...] the thoracic spine. DIVISION OF RADIOLOGY Provider, [facility] Brittany [facility] - 09/08/2020 * * *Final Report* * [...] IMPRESSION IMPRESSION: No definite acute radiographic abnormality. Storage Consultant: PSCB Transcribe Date/Time: Sep 08 2020 9:06A Dictated by : DASH VALDEZ DO This examination was interpreted and the report reviewed and electronically signed by: DASH VALDEZ DO on Sep 08 2020 9:11AM EST [facility] Radiology Study observation (narrative) [facility] XR Chest PA and LateralOrder ed By: Ccf Provider on 09-08-2020 [facility] ANGIO/ARTHER-EXTREMITY UNILA TERAL [id number] 09-10-2017 ANGIO/ARTHER-EXTREMITY UNILATERAL [id number] Performed at [facility] APPROVED BY: Selene Wilburn MD EXAM TITLE: [...] utilizing guidewire exchange and Seldinger technique a 5-Latvian sheath was placed. Ultrasound images were obtained of the needle within the artery. A digital subtraction arteriogram of the entrance site was obtained. A 4-Latvian angled glide catheter was used to select [...] other significant vascular abnormalities are identified. Normal [facility] Protimeon 09-10-2017 INR Coag RelTime (PPP) 0.99 {INR} Normal [facility] Comment on above: Result Comment: Ramon dard Therapy 2.0-3.0High Dose 2.5-3.5 Performed By: #### P T ####[place] [address] Prothrombin time (PT) Coag time (PPP) 10.5 s Normal 9.3-11.9 [facility] Comment on above: Performed By: #### P T ####[place] [address] Lab Report: Lipid Profileon 02-08-2017 Cholesterol 132 mg/dL Invalid Interpretation Code 200 [email or web address] Work Phone: [phone] HDL Cholesterol 38 mg/dL Low [email or web address] Work Phone: [phone] LDL Cholesterol 70 mg/dL Invalid Interpretation Code 0-130 [email or web address] Work Phone: [phone] Triglyceride 120 mg/dL Invalid Interpretation Code [email or web address] Work Phone: [phone] very low density lipoproteins 24 mg/dL Invalid Interpretation Code 5-40 [email or web address] Work Phone: [phone] Lab Report: Liver Profileon 02-08-2017 Alanine aminotransferase (ALT) 30 U/L Invalid Interpretation Code 12-78 [email or web address] Work Phone: [phone] Albumin 4.0 g/dL Invalid Interpretation Code 3.4-5.0 [email or web address] Work Phone: [phone] Alkaline phosphatase (ALP) 107 U/L Inval id Interpretation Code 45-117 [email or web address] Work Phone: [phone] Aspartate aminotransferase (AST) 29 U/L Invalid Interpretation Code 15-37 [email or web address] Work Phone: [phone] Bilirubin (direct) 0.10 mg/dL Invalid Interpretation Code 0.00-0.30 [email or web address] Work Phone: [phone] Bilirubin (total) 0.40 mg/dL Invalid Interpretation Code 0.20-1.00 [email or web address] Work Phone: [phone] Globulin 4.0 g/dL High 2.3-3.5 [facility] [employer] Work Phone: [phone] Protein 8.0 g/dL Invalid Interpretation Code 6.4-8.2 [facility] Phone: [phone] Office Visiton 02-07-2017 Documentation of current medications (procedure) Done Invalid Interpretation Code [email or web address] Work Phone: [phone] Fall risk assessment No Invalid Interpretation Code [email or web address] Work Phone: [phone] Clinical Lists Update: Clini ada Noteon 01-16-2017 Left ventricular Ejection fraction 60 % Invalid Interpretation Code [email or web address] Work Phone: [phone] Lab Report: Basic Metabolic Profile (BMP)on 01-08-2017 Anion gap 8 mmol/L Invalid Interpretation Code 5-15 [facility] [employer] Work Phone: [phone] Anion gap molar conc 8 mmol/L 5-[address] [employer] Work Phone: [phone] BUN/Creatinine Ratio 15.2 RATIO Invalid Interpretation Code 10-20 [email or web address] Work Phone: [phone] Calcium 8.8 mg/dL Invalid Interpretation Code 8.5-10.1 [email or web address] Work Phone: [phone] Chloride 103 mmol/L Invalid Interpretation Code 98-107 [email or web address] Work Phone: [phone] CO2 28.0 mmol/L Invalid Interpretation Code 21.0-32.0 [email or web address] Work Phone: [phone] CO2 ppres (BldV) 28.0 mmol/L 21.0-32.0 [email or web address] Work Phone: [phone] Creatinine 0.86 mg/dL Invalid Interpretation Code 0.70-1.30 [email or web address] Work Phone: [phone] eGFR (non-black) 96 mL/min/{1.73_m2} Invalid Interpretation Code >60 [email or web address] Work Phone: [phone] eGFR (non-black) 116 mL/min/{1.73_m2} Invalid Interpretation Code >60 [email or web address] Work [phone] EST GFR - AA 116 mL/min >60 [facility] Work Phone: [phone] Glucose 129 mg/dL High 70-110 [facility] Work Phone: [phone] Glucose mass conc 129 mg/dL High 70-110 [facility] Work Phone: [phone] Potassium 4.4 mmol/L Invalid Interpretation Code 3.5-5.1 [facility] Work Phone: [phone] Sodium 139 mmol/L Invalid Interpretation Code 136-145 [facility] Work Phone: [phone] Urea nitrogen 13 mg/dL Invalid Interpretation Code 7-18 [facility] Work Phone: [phone] Lab Report: CBC-Complete Blo od Cnt No Diffon 01-08-2017 Erythrocyte distribution width Ratio (RBC) 39.2 fL 35.1-43.9 [facility] Work Phone: [phone] Erythrocyte distribution width Ratio (RBC) 13.0 % 11.6-14.6 [facility] Work Phone: [phone] Erythrocytes (RBC) 4.75 10*6/uL Invalid Interpretation Code 4.6-6.2 [facility] Work Phone: [phone] Hematocrit (HCT) 39.8 % Low 40-54 [facility] Work Phone: [phone] Hematocrit Volume Fraction (Bld) 39.8 % Low 40-54 [facility] Work Phone: [phone] Hemoglobin (HGB) 13.6 g/dL Invalid Interpretation Code 13.0-16.5 [facility] Work Phone: [phone] MCH 28.6 pg Invalid Interpretation Code 27.0-32.0 [facility] Work Phone: [phone] MCH Entitic mass (RBC) 28.6 pg 27.0-32.0 [facility] Work Phone: [phone] MCHC 34.2 G/GL Invalid Interpretation Code 32-36 [facility] Work Phone: [phone] MCHC mass conc (RBC) 34.2 G/GL 32-[address] [facility] Work Phone: [phone] MCV 83.8 fL Invalid Interpretation Code 80-94 [facility] Work Phone: [phone] MCV Entitic volume (RBC) 83.8 fL 80-94 [facility] Work Phone: [phone] Platelet mean volume Entitic volume (Bld) 9.5 fL 6.2-12.0 [facility] Work Phone: [phone] Platelets 222 10*3/mm3 Invalid Interpretation Code 150-450 [facility] Work Phone: [phone] Platelets #/vol (Bld) 222 10*3/mm3 150-450 [facility] [employer] Work Phone: [phone] PMV by Yadira 9.5 fL Invalid Interpretation Code 6.2-12.0 [facility] [employer] Work Phone: [phone] RBC #/vol (Bld) 4.75 10*6/uL 4.6-6.2 [facility] [employer] Work Phone: [phone] RDW-CA 13.0 % Invalid Interpretation Code 11.6-14.6 [facility] [employer] Work Phone: [phone] red blood cell distribution width, size density 39.2 fL Invalid Interpretation Code 35.1-43.9 [facility] [employer] Work Phone: [phone] WBC #/vol (Bld) 6.7 10*3/uL 4.4-11.0 [facility] [employer] Work Phone: [phone] WBC (Leukocytes) 6.7 10*3/uL Invalid Interpretation Code 4.4-11.0 [facility] [employer] Work Phone: [phone] Lab Report: Prothrombin Time w/INRon 01-08-2017 Coagulation tissue factor induced in platelet poor plasma 12.3 s Invalid Interpretation Code 11.7-14.9 [facility] Work Phone: [phone] INR Coag RelTime (PPP) 1.0 {INR} [facility] [employer] Work Phone: [phone] INR in blood by coagulation 1.0 {INR} Inva lid Interpretation Code [facility] [employer] Work Phone: [phone] Office Visiton 01-08-2017 Documentation of current medications (procedure) Done Invalid Interpretation Code [facility] Work Phone: [phone] Fall risk assessment No [facility] Work Phone: [phone] Protein mass conc Done [facility] Work Phone: [phone] Tobacco smoking status NHIS Never smoker [facility] Work Phone: [phone] Tobacco use CPHS Never smoker Invalid Interpretation Code [facility] Work Phone: [phone] Replaced Document: Buzz Martinon 01-08-2017 EKG QRS axis 26 deg [facility] Work Phone: [phone] electrocardiogram interpretation Sinus Rhythm WITHIN NORMAL LIMITS Invalid Interpretation Code [facility] Work Phone: [phone] GE use only - for [employer] import when terms are not otherwise specified 392 ms Invalid Interpretation Code [facility] Work Phone: [phone] Interpretation Sinus Rhythm WITHIN NORMAL LIMITS [facility] Work Phone: P [place] 33 deg [facility] Work Phone: P wave axis, electrocardiogram 33 deg Invalid Interpretation Code [facility] Work Phone: MD Interval 140 ms [facility] Work Phone: MD interval, electrocardiogram 140 ms Invalid Interpretation Code [facility] Work Phone: Pulse (Heart Rate) 81 /min Invalid Interpretation Code [facility] Work Phone: QRS axis, electrocardiogram 26 deg Inva lid Interpretation Code [facility] Work Phone: QRS Duration 94 ms [facility] Work Phone: QRS duration, electrocardiogram 94 ms Invalid Interpretation Code [facility] Work Phone: QT Interval new path ms [facility] Work Phone: QT interval, electrocardiogram new path ms Invalid Interpretation Code [facility] Work Phone: QTc [place] 392 ms [facility] Work Phone: T [place] -1 deg [facility] Work Phone: T wave axis, electrocardiogram -1 deg Invalid Interpretation Code [facility] Work Phone: Clinical Lists Update: 10-04-2016 HbA1c 12.1 % Invalid Interpretation Code [facility] Work Phone: [phone] Clinical Lists Update: 10-03-2016 Cholesterol 219 mg/dL [facility] Work Phone: [phone] HDL Cholesterol 141 mg/dL [facility] Work Phone: [phone] LDL Cholesterol 36 mg/dL [facility] Work Phone: [phone] Triglyceride 211 mg/dL [facility] Work Phone: [phone] Vital Signs Date Time Vital Sign Value Performing Clinician Facility 03-05-2025 15:00-0400 Diastolic blood pressure 72 mm[Hg] Dr. Nadir Grady MD Work Phone: [facility] 03-05-2025 15:00-0400 Heart rate 67 /min Dr. Nadir Grady MD Work Phone: 9(624)481-017132 [place] [address] 03-05-2025 15:00-0400 Respiratory rate 20 /min Dr. Nadir Grady MD Work Phone: 3(165)314-174375 [place] [address] 03-05-2025 15:00-0400 SaO2% (BldA) [Mass fraction] 97 % Dr. Nadir Grady MD Work Phone: 0(421)555-653432 [place] [address] 03-05-2025 15:00-0400 Systolic blood pressure 142 mm[Hg] Dr. Nadir Grady MD Work Phone: [facility] 03-05-2025 14:07-0400 Body temperature 98 [degF] Dr. Nadir Grady MD Work Phone: 6(854)530-926132 [place] [address] 03-05-2025 11:11-0400 Body height 177.[address] Nadir Grady MD Work Phone: 3(095)163-948632 [place] [address] 03-05-2025 11:11-0400 Body mass index (BMI) [Ratio] 24.5 kg/m2 Dr. Nadir Grady MD Work Phone: 8(094)171-682932 [place] [address] 03-05-2025 11:11-0400 Body weight 77.[address] Nadir Grady MD Work Phone: 2(073)018-636032 [place] [address] 02-22-2025 11:06-0400 Body height 177.[address] Nadir Grady MD Work Phone: 6(830)223-859532 [place] [address] 02-22-2025 11:06-0400 Body mass index (BMI) [Ratio] 24.3 kg/m2 Dr. Nadir Grady MD Work Phone: 0(777)875-226232 [place] [address] 02-22-2025 11:06-0400 Body weight 77.[address] Nadir Grady MD Work Phone: [facility] 02-22-2025 11:06-0400 Diastolic blood pressure 69 mm[Hg] Dr. Nadir Grady MD Work Phone: 3(569)467-478732 [place] [address] 02-22-2025 11:06-0400 Heart rate 72 /min Dr. Nadir Grady MD Work Phone: 6(737)018-948032 [place] [address] 02-22-2025 11:06-0400 Respiratory rate 16 /min Dr. Nadir Grady MD Work Phone: [facility] 02-22-2025 11:06-0400 Systolic blood pressure 125 mm[Hg] Dr. Nadir Grady MD Work Phone: [facility] 12-13-2024 09:48-0400 Body mass index (BMI) [Ratio] 25.82 kg/m2 Mollymarline Houser DATAPOWER DEVELOPER.THERMITE BOMB LOADER Work Phone: [facility] 12-13-2024 09:48-0400 Body weight 78.83 kg Molly Corrina DATAPOWER DEVELOPER.THERMITE BOMB LOADER Work Phone: [facility] 12-13-2024 09:48-0400 Diastolic blood pressure 80 mm[Hg] Molly Houser APRN.THERMITE BOMB LOADER Work Phone: [facility] 12-13-2024 09:48-0400 Heart rate 74 /min Molly Corrina DATAPOWER DEVELOPER.THERMITE BOMB LOADER Work Phone: [facility] 12-13-2024 09:48-0400 Respiratory rate 18 /min Molly Corrina DATAPOWER DEVELOPER.THERMITE BOMB LOADER Work Phone: [facility] 12-13-2024 09:48-0400 SaO2% (BldA) [Mass fraction] 97 % Molly Corrina DATAPOWER DEVELOPER.THERMITE BOMB LOADER Work Phone: [facility] 12-13-2024 09:48-0400 Systolic blood pressure 129 mm[Hg] Molly Corrina DATAPOWER DEVELOPER.THERMITE BOMB LOADER Work Phone: [facility] 12-08-2024 08:17-0400 Body height 177.[address] Nadir Grady MD Work Phone: [facility] 12-08-2024 08:14-0400 Body mass index (BMI) [Ratio] 25 kg/m2 Dr. Nadir Grady MD Work Phone: [facility] 12-08-2024 08:14-0400 Body weight 78.[address] Nadir Grady MD Work Phone: [facility] 12-08-2024 08:14-0400 Diastolic blood pressure 66 mm[Hg] Dr. Nadir Grady MD Work Phone: [facility] 12-08-2024 08:14-0400 Heart rate 77 /min Dr. Nadir Grady MD Work Phone: [facility] 12-08-2024 08:14-0400 Respiratory rate 18 /min Dr. Nadir Grady MD Work Phone: [facility] 12-08-2024 08:14-0400 SaO2% (BldA) [Mass fraction] 96 % Dr. Nadir Grady MD Work Phone: [facility] 12-08-2024 08:14-0400 Systolic blood pressure 122 mm[Hg] Dr. Nadir Grady MD Work Phone: 7(950)209-354832 [place] [address] 10-22-2024 12:55-0500 Body mass index (BMI) [Ratio] 25.99 kg/m2 Molly Corrina DATAPOWER DEVELOPER.THERMITE BOMB LOADER Work Phone: [facility] 10-22-2024 12:55-0500 Body weight 79.38 kg Molly Corrina DATAPOWER DEVELOPER.THERMITE BOMB LOADER Work Phone: [facility] 10-22-2024 12:55-0500 Diastolic blood pressure 76 mm[Hg] Molly Corrina DATAPOWER DEVELOPER.THERMITE BOMB LOADER Work Phone: [facility] 10-22-2024 12:55-0500 Heart rate 72 /min Molly Corrina DATAPOWER DEVELOPER.THERMITE BOMB LOADER Work Phone: [facility] 10-22-2024 12:55-0500 Respiratory rate 18 /min Molly Corrina DATAPOWER DEVELOPER.THERMITE BOMB LOADER Work Phone: [facility] 10-22-2024 12:55-0500 SaO2% (BldA) [Mass fraction] 97 % Molly Corrina DATAPOWER DEVELOPER.THERMITE BOMB LOADER Work Phone: [facility] 10-22-2024 12:55-0500 Systolic blood pressure 131 mm[Hg] Molly Corrina DATAPOWER DEVELOPER.THERMITE BOMB LOADER Work Phone: [facility] 10-07-2024 08:48-0500 Body mass index (BMI) [Ratio] 25.7 kg/m2 Martha DENISE-C Work Phone: [facility] 10-07-2024 08:48-0500 Body temperature 98.49 [degF] Martha DENISE-C Work Phone: [facility] 10-07-2024 08:48-0500 Body weight 78.47 kg Martha Boston PA-C Work Phone: [facility] 10-07-2024 08:48-0500 Diastolic blood pressure 70 mm[Hg] Martha Boston PA-C Work Phone: [facility] 10-07-2024 08:48-0500 Heart rate 83 /min Martha Boston PA-C Work Phone: [facility] 10-07-2024 08:48-0500 Respiratory rate 16 /min Martha Boston PA-C Work Phone: [facility] 10-07-2024 08:48-0500 SaO2% (BldA) [Mass fraction] 96 % Martha Boston PA-C Work Phone: [facility] 10-07-2024 08:48-0500 Systolic blood pressure 128 mm[Hg] Martha Boston PA-C Work Phone: 0(455)168-809135 [place] [address] 09-08-2024 12:53-0500 Body height 177.[address] Nadir Grady MD Work Phone: 2(038)130-519375 [place] [address] 09-08-2024 12:53-0500 Body mass index (BMI) [Ratio] 25.4 kg/m2 Dr. Nadir Grady MD Work Phone: 1(492)474-279175 [place] [address] 09-08-2024 12:53-0500 Body weight 80.[address] Nadir Grady MD Work Phone: 0(331)934-217675 [place] [address] 09-08-2024 12:53-0500 Diastolic blood pressure 57 mm[Hg] Dr. Nadir Grady MD Work Phone: 1(974)394-817675 [place] [address] 09-08-2024 12:53-0500 Heart rate 73 /min Dr. Nadir Grady MD Work Phone: 5(607)910-657775 [place] [address] 09-08-2024 12:53-0500 Respiratory rate 18 /min Dr. Nadir Grady MD Work Phone: 8(145)770-955575 [place] [address] 09-08-2024 12:53-0500 SaO2% (BldA) [Mass fraction] 94 % Dr. Nadir Grady MD Work Phone: 5(567)833-093175 [place] [address] 09-08-2024 12:53-0500 Systolic blood pressure 114 mm[Hg] Dr. Nadir Grady MD Work Phone: 2(823)082-050875 [place] [address] 09-06-2024 14:37-0500 Body mass index (BMI) [Ratio] 25.55 kg/m2 Nadir Grady MD Work Phone: 1(946)295-112335 [place] [address] 09-06-2024 14:37-0500 Body weight 78.02 kg Nadir Grady MD Work Phone: 6(511)111-676435 [place] [address] 09-06-2024 14:37-0500 Diastolic blood pressure 74 mm[Hg] Nadir Grady MD Work Phone: 7(122)361-464235 [place] [address] 09-06-2024 14:37-0500 Heart rate 72 /min Nadir Grady MD Work Phone: 9(283)922-310835 [place] [address] 09-06-2024 14:37-0500 Respiratory rate 18 /min Nadir Grady MD Work Phone: 9(377)163-605835 [place] [address] 09-06-2024 14:37-0500 Systolic blood pressure 128 mm[Hg] Nadir Grady MD Work Phone: 3(429)393-073861 [place] [address] 08-27-2024 14:00-0500 Body temperature 98.9 [degF] Dr. Nadir Grady MD Work Phone: 7(629)912-225232 [place] [address] 08-27-2024 14:00-0500 Diastolic blood pressure 66 mm[Hg] Dr. Nadir Grady MD Work Phone: 8(919)564-794375 [place] [address] 08-27-2024 14:00-0500 Heart rate 89 /min Dr. Nadir Grady MD Work Phone: 7(733)840-265875 [place] [address] 08-27-2024 14:00-0500 Respiratory rate 169 /min Dr. Nadir Grady MD Work Phone: 9(494)673-352175 [place] [address] 08-27-2024 14:00-0500 SaO2% (BldA) [Mass fraction] 98 % Dr. Nadir Grady MD Work Phone: 9(972)921-118232 [place] [address] 08-27-2024 14:00-0500 Systolic blood pressure 124 mm[Hg] Dr. Nadir Grady MD Work Phone: 4(409)075-383175 [place] [address] 08-27-2024 09:40-0500 Body mass index (BMI) [Ratio] 23.9 kg/m2 Dr. Nadir Grady MD Work Phone: 6(220)462-389875 [place] [address] 08-27-2024 09:40-0500 Body weight 75.[address] Nadir Grady MD Work Phone: [facility] 08-16-2024 07:04-0500 Body weight 81.[address] Nadir Grady MD Work Phone: [facility] 08-13-2024 09:58-0500 Body mass index (BMI) [Ratio] 25.7 kg/m2 Dr. Nadir Grady MD Work Phone: [facility] 08-12-2024 08:00-0500 Body mass index (BMI) [Ratio] 26.92 kg/m2 Bridget Moomaw DATAPOWER DEVELOPER.THERMITE BOMB LOADER Work Phone: [facility] 08-12-2024 08:00-0500 Body temperature 97.2 [degF] Bridget Moomaw DATAPOWER DEVELOPER.THERMITE BOMB LOADER Work Phone: [facility] 08-12-2024 08:00-0500 Body weight 82.2 kg Bridget Moomaw DATAPOWER DEVELOPER.THERMITE BOMB LOADER Work Phone: [facility] 08-12-2024 08:00-0500 Diastolic blood pressure 74 mm[Hg] Bridget Moomaw DATAPOWER DEVELOPER.THERMITE BOMB LOADER Work Phone: [facility] 08-12-2024 08:00-0500 Heart rate 70 /min Bridget Moomaw DATAPOWER DEVELOPER.THERMITE BOMB LOADER Work Phone: [facility] 08-12-2024 08:00-0500 Respiratory rate 20 /min Bridget Moomaw DATAPOWER DEVELOPER.THERMITE BOMB LOADER Work Phone: [facility] 08-12-2024 08:00-0500 SaO2% (BldA) [Mass fraction] 98 % Bridget Moomaw DATAPOWER DEVELOPER.THERMITE BOM[employer] LOADER Work Phone: [facility] 08-12-2024 08:00-0500 Systolic blood pressure 118 mm[Hg] Bridget Moomaw DATAPOWER DEVELOPER.THERMITE BOM[employer] LOADER Work Phone: [facility] 07-28-2024 08:11-0500 Body mass index (BMI) [Ratio] 25.7 kg/m2 Dr. Nadir Grady MD Work Phone: [facility] 07-28-2024 08:11-0500 Body weight 81.[address] Nadir Grady MD Work Phone: [facility] 07-28-2024 08:11-0500 Diastolic blood pressure 74 mm[Hg] Dr. Nadir Grady MD Work Phone: [facility] 07-28-2024 08:11-0500 Heart rate 72 /min Dr. Nadir Grady MD Work Phone: [facility] 07-28-2024 08:11-0500 Respiratory rate 18 /min Dr. Nadir Grady MD Work Phone: [facility] 07-28-2024 08:11-0500 SaO2% (BldA) [Mass fraction] 97 % Dr. Nadir Grady MD Work Phone: [facility] 07-28-2024 08:11-0500 Systolic blood pressure 126 mm[Hg] Dr. Nadir Grady MD Work Phone: [facility] 07-24-2024 09:20-0500 Body mass index (BMI) [Ratio] 26.82 kg/m2 Bridget Moomaw DATAPOWER DEVELOPER.THERMITE BOMB LOADER Work Phone: [facility] 07-24-2024 09:20-0500 Body temperature 97.7 [degF] Bridget Moomaw DATAPOWER DEVELOPER.THERMITE BOM[employer] LOADER Work Phone: [facility] 07-24-2024 09:20-0500 Body weight 81.9 kg Bridget Moomaw DATAPOWER DEVELOPER.THERMITE BOM[employer] LOADER Work Phone: [facility] 07-24-2024 09:20-0500 Diastolic blood pressure 64 mm[Hg] Bridget Moomaw DATAPOWER DEVELOPER.THERMITE BOM[employer] LOADER Work Phone: [facility] 07-24-2024 09:20-0500 Heart rate 80 /min Bridget Moomaw DATAPOWER DEVELOPER.THERMITE BOMB LOADER Work Phone: [facility] 07-24-2024 09:20-0500 Respiratory rate 16 /min Bridget Moomaw DATAPOWER DEVELOPER.THERMITE BOMB LOADER Work Phone: [facility] 07-24-2024 09:20-0500 SaO2% (BldA) [Mass fraction] 96 % Bridget Joseph DATAPOWER DEVELOPER.THERMITE BOM[employer] LOADER Work Phone: [facility] 07-24-2024 09:20-0500 Systolic blood pressure 124 mm[Hg] Bridget Joseph DATAPOWER DEVELOPER.THERMITE BOM[employer] LOADER Work Phone: [facility] 07-20-2024 07:26-0500 Body height 174.7 cm Martha Boston PA-C Work Phone: [facility] 07-20-2024 07:26-0500 Body mass index (BMI) [Ratio] 25.4 kg/m2 Martha Boston PA-C Work Phone: [facility] 07-20-2024 07:26-0500 Body temperature 97.81 [degF] Martha Boston PA-C Work Phone: [facility] 07-20-2024 07:26-0500 Body weight 77.56 kg Martha Boston PA-C Work Phone: [facility] 07-20-2024 07:26-0500 Diastolic blood pressure 62 mm[Hg] Martha Boston PA-C Work Phone: [facility] 07-20-2024 07:26-0500 Heart rate 71 /min Martha Boston PA-C Work Phone: [facility] 07-20-2024 07:26-0500 Respiratory rate 16 /min Martha Boston PA-C Work Phone: [facility] 07-20-2024 07:26-0500 SaO2% (BldA) [Mass fraction] 97 % Martha Boston PA-C Work Phone: [facility] 07-20-2024 07:26-0500 Systolic blood pressure 132 mm[Hg] Martha Boston PA-C Work Phone: [facility] 12-30-2023 08:37-0400 Body height 177.[address] Nadir Grady Work Phone: [facility] 12-30-2023 08:37-0400 Body mass index (BMI) [Ratio] 26.8 kg/m2 Dr. Nadir Grady Work Phone: [facility] 12-30-2023 08:37-0400 Body weight 84.[address] Nadir Grady Work Phone: [facility] 12-30-2023 08:37-0400 Diastolic blood pressure 67 mm[Hg] Dr. Nadir Grady Work Phone: [facility] 12-30-2023 08:37-0400 Heart rate 74 /min Dr. Nadir Grady Work Phone: [facility] 12-30-2023 08:37-0400 Respiratory rate 18 /min Dr. Nadir Grady Work Phone: [facility] 12-30-2023 08:37-0400 SaO2% (BldA) [Mass fraction] 97 % Dr. Nadir Grady Work Phone: [facility] 12-30-2023 08:37-0400 Systolic blood pressure 129 mm[Hg] Dr. Nadir Grady Work Phone: [facility] 12-22-2023 09:11-0400 Body mass index (BMI) [Ratio] 28.08 kg/m2 Karin Hamm DATAPOWER DEVELOPER.THERMITE BOMB LOADER Work Phone: [facility] 12-22-2023 09:11-0400 Body temperature 97.9 [degF] Karin Hamm DATAPOWER DEVELOPER.THERMITE BOMB LOADER Work Phone: [facility] 12-22-2023 09:11-0400 Body weight 86 kg Karin Hamm DATAPOWER DEVELOPER.THERMITE BOMB LOADER Work Phone: [facility] 12-22-2023 09:11-0400 Diastolic blood pressure 64 mm[Hg] Karin Hamm DATAPOWER DEVELOPER.THERMITE BOMB LOADER Work Phone: [facility] 12-22-2023 09:11-0400 Heart rate 78 /min Karin Hamm DATAPOWER DEVELOPER.THERMITE BOMB LOADER Work Phone: [facility] 12-22-2023 09:11-0400 Respiratory rate 16 /min Karin Hamm DATAPOWER DEVELOPER.THERMITE BOMB LOADER Work Phone: [facility] 12-22-2023 09:11-0400 SaO2% (BldA) [Mass fraction] 96 % Karin Hamm DATAPOWER DEVELOPER.THERMITE BOMB LOADER Work Phone: [facility] 12-22-2023 09:11-0400 Systolic blood pressure 108 mm[Hg] Karin Hamm DATAPOWER DEVELOPER.THERMITE BOMB LOADER Work Phone: [facility] 12-19-2023 09:52-0400 Body weight 86.[address] Nadir Grady Work Phone: [facility] 12-04-2023 13:08-0400 Body temperature 97.5 [degF] Dr. Nadir Grady Work Phone: [facility] 12-04-2023 13:08-0400 Diastolic blood pressure 78 mm[Hg] Dr. Nadir Grady Work Phone: [facility] 12-04-2023 13:08-0400 Heart rate 65 /min Dr. Nadir Grady Work Phone: [facility] 12-04-2023 13:08-0400 Respiratory rate 12 /min Dr. Nadir Grady Work Phone: [facility] 12-04-2023 13:08-0400 SaO2% (BldA) [Mass fraction] 98 % Dr. Nadir Grady Work Phone: [facility] 12-04-2023 13:08-0400 Systolic blood pressure 160 mm[Hg] Dr. Nadir Grady Work Phone: [facility] 12-03-2023 19:36-0400 Body height 177.[address] Nadir Grady Work Phone: [facility] 12-03-2023 19:36-0400 Body mass index (BMI) [Ratio] 27.4 kg/m2 Dr. Nadir Grady Work Phone: 2(277)682-045232 [place] [address] 12-03-2023 19:36-0400 Body weight 86.[address] Nadir Grady Work Phone: 7(340)873-563875 [place] [address] 12-03-2023 17:52-0400 Body temperature 98.1 [degF] Dr. Nadir Grady Work Phone: 7(611)461-436632 [place] [address] 12-03-2023 17:52-0400 Diastolic blood pressure 77 mm[Hg] Dr. Nadir Grady Work Phone: 4(610)172-286632 [place] [address] 12-03-2023 17:52-0400 Heart rate 91 /min Dr. Nadir Grady Work Phone: 9(442)475-457375 [place] [address] 12-03-2023 17:52-0400 Respiratory rate 16 /min Dr. Nadir Grady Work Phone: 2(311)773-668275 [place] [address] 12-03-2023 17:52-0400 SaO2% (BldA) [Mass fraction] 96 % Dr. Nadir Grady Work Phone: 5(692)688-856832 [place] [address] 12-03-2023 17:52-0400 Systolic blood pressure 137 mm[Hg] Dr. Nadir Grady Work Phone: 5(520)381-084732 [place] [address] 12-03-2023 17:43-0400 Body mass index (BMI) [Ratio] 28.4 kg/m2 Dr. Nadir Grady Work Phone: 9(812)494-063632 [place] [address] 12-03-2023 17:43-0400 Body weight 89.[address] Nadir Grady Work Phone: 5(834)046-000332 [place] [address] 12-03-2023 14:14-0400 Body height 177.[address] Nadir Grady Work Phone: 9(112)037-457632 [place] [address] 11-24-2023 07:06-0400 Body height 177.[address] Nadir Grady Work Phone: 2(438)610-106932 [place] [address] 11-24-2023 07:06-0400 Body weight 87.[address] Nadir Grady Work Phone: 2(859)742-063332 [place] [address] 11-21-2023 14:13-0400 Body mass index (BMI) [Ratio] 27.8 kg/m2 Dr. Nadir Grady Work Phone: 9(332)280-878275 [place] [address] 11-19-2023 13:57-0400 Body mass index (BMI) [Ratio] 27.8 kg/m2 Dr. Nadir Grady Work Phone: 8(500)407-359575 [place] [address] 11-19-2023 13:37-0400 Body weight 87.[address] Nadir Grady Work Phone: 6(492)551-017075 [place] [address] 11-19-2023 13:14-0400 Diastolic blood pressure 56 mm[Hg] Dr. Nadir Grady Work Phone: 8(042)751-825975 [place] [address] 11-19-2023 13:14-0400 Heart rate 73 /min Dr. Nadir Grady Work Phone: 9(612)411-050175 [place] [address] 11-19-2023 13:14-0400 SaO2% (BldA) [Mass fraction] 96 % Dr. Nadir Grady Work Phone: 9(278)949-957075 [place] [address] 11-19-2023 13:14-0400 Systolic blood pressure 130 mm[Hg] Dr. Nadir Grady Work Phone: 8(824)559-952275 [place] [address] 10-30-2023 08:59-0500 Body mass index (BMI) [Ratio] 27.8 kg/m2 Dr. Nadir Grady Work Phone: 1(668)451-633775 [place] [address] 10-30-2023 08:59-0500 Body weight 87.[address] Nadir Grady Work Phone: 3(400)394-897175 [place] [address] 10-30-2023 08:59-0500 Diastolic blood pressure 56 mm[Hg] Dr. Nadir Grady Work Phone: 0(481)198-195775 [place] [address] 10-30-2023 08:59-0500 Heart rate 73 /min Dr. Nadir Grady Work Phone: 2(950)504-096575 [place] [address] 10-30-2023 08:59-0500 Respiratory rate 18 /min Dr. Nadir Grady Work Phone: 2(310)385-392775 [place] [address] 10-30-2023 08:59-0500 SaO2% (BldA) [Mass fraction] 96 % Dr. Nadir Grady Work Phone: 6(644)232-094275 [place] [address] 10-30-2023 08:59-0500 Systolic blood pressure 130 mm[Hg] Dr. Nadir Grady Work Phone: 1(664)189-036275 [place] [address] 10-23-2023 13:44-0500 Body temperature 98.2 [degF] Dr. Nadir Grady Work Phone: 0(503)896-378875 [place] [address] 10-23-2023 13:44-0500 Diastolic blood pressure 67 mm[Hg] Dr. Nadir Grady Work Phone: 8(396)546-767975 [place] [address] 10-23-2023 13:44-0500 Heart rate 60 /min Dr. Nadir Grady Work Phone: 4(484)102-014075 [place] [address] 10-23-2023 13:44-0500 Respiratory rate 18 /min Dr. Nadir Grady Work Phone: 8(700)580-970175 [place] [address] 10-23-2023 13:44-0500 SaO2% (BldA) [Mass fraction] 99 % Dr. Nadir Grady Work Phone: 6(042)847-804475 [place] [address] 10-23-2023 13:44-0500 Systolic blood pressure 129 mm[Hg] Dr. Nadir Grady Work Phone: 6(752)159-149275 [place] [address] 10-23-2023 09:23-0500 Body height 177.[address] Nadir Grady Work Phone: 0(594)145-719775 [place] [address] 10-23-2023 09:23-0500 Body mass index (BMI) [Ratio] 28.4 kg/m2 Dr. Nadir Grady Work Phone: 1(225)433-573775 [place] [address] 10-23-2023 09:23-0500 Body weight 89.[address] Nadir Grady Work Phone: 8(515)835-468775 [place] [address] 10-23-2023 08:57-0500 Body temperature 97.59 [degF] Ruthann Wadsworth APRN.CNP Work Phone: [facility] 10-23-2023 08:57-0500 Body weight 89.99 kg Ruthann Wadsworth APRN.THERMITE BOMB LOADER Work Phone: [facility] 10-23-2023 08:57-0500 Diastolic blood pressure 68 mm[Hg] Ruthann Wadsworth APRN.THERMITE BOMB LOADER Work Phone: [facility] 10-23-2023 08:57-0500 Heart rate 66 /min Ruthann Wadsworth APRN.THERMITE BOMB LOADER Work Phone: [facility] 10-23-2023 08:57-0500 Respiratory rate 16 /min Ruthann Wadsworth APRN.THERMITE BOMB LOADER Work Phone: [facility] 10-23-2023 08:57-0500 SaO2% (BldA) [Mass fraction] 96 % Ruthann Wadsworth APRN.THERMITE BOMB LOADER Work Phone: [facility] 10-23-2023 08:57-0500 Systolic blood pressure 134 mm[Hg] Ruthann Wadsworth APRN.THERMITE BOMB LOADER Work Phone: [facility] 10-15-2023 11:39-0500 Body temperature 97.7 [degF] Dr. Nadir Grady Work Phone: [facility] 10-15-2023 11:39-0500 Diastolic blood pressure 69 mm[Hg] Dr. Nadir Grady Work Phone: [facility] 10-15-2023 11:39-0500 Heart rate 59 /min Dr. Nadir Grady Work Phone: [facility] 10-15-2023 11:39-0500 Respiratory rate 16 /min Dr. Nadir Grady Work Phone: [facility] 10-15-2023 11:39-0500 SaO2% (BldA) [Mass fraction] 94 % Dr. Nadir Grady Work Phone: [facility] 10-15-2023 11:39-0500 Systolic blood pressure 156 mm[Hg] Dr. Nadir Grady Work Phone: 1(202)121-226332 [place] [address] 10-15-2023 08:36-0500 Body height 177.[address] Nadir Grady Work Phone: 3(567)869-739875 [place] [address] 10-15-2023 08:36-0500 Body mass index (BMI) [Ratio] 27.8 kg/m2 Dr. Nadir Grady Work Phone: 5(370)198-242675 [place] [address] 10-15-2023 08:36-0500 Body weight 88.[address] Nadir Grady Work Phone: 1(850)977-066975 [place] [address] 10-11-2023 13:17-0500 Diastolic blood pressure 62 mm[Hg] Dr. Nadir Grady Work Phone: 0(284)828-264575 [place] [address] 10-11-2023 13:17-0500 Heart rate 70 /min Dr. Nadir Grady Work Phone: 4(786)694-406775 [place] [address] 10-11-2023 13:17-0500 Respiratory rate 16 /min Dr. Nadir Grady Work Phone: 7(965)595-090075 [place] [address] 10-11-2023 13:17-0500 SaO2% (BldA) [Mass fraction] 96 % Dr. Nadir Grady Work Phone: 4(364)529-606575 [place] [address] 10-11-2023 13:17-0500 Systolic blood pressure 110 mm[Hg] Dr. Nadir Grady Work Phone: 1(173)451-597975 [place] [address] 10-11-2023 09:05-0500 Body temperature 98.1 [degF] Dr. Nadir Grady Work Phone: 3(130)975-741875 [place] [address] 10-11-2023 06:00-0500 Body mass index (BMI) [Ratio] 28.7 kg/m2 Dr. Nadir Grady Work Phone: 2(212)076-014075 [place] [address] 10-11-2023 06:00-0500 Body weight 90.[address] Nadir Grady Work Phone: 8(500)333-720875 [place] [address] 10-09-2023 23:26-0500 Body height 177.[address] Nadir Grady Work Phone: [facility] 10-09-2023 20:23-0500 Body temperature 97.9 [degF] Dr. Nadir Grady Work Phone: 8(215)845-536275 [place] [address] 10-09-2023 20:23-0500 Diastolic blood pressure 69 mm[Hg] Dr. Nadir Grady Work Phone: 9(706)789-955975 [place] [address] 10-09-2023 20:23-0500 Heart rate 87 /min Dr. Nadir Grady Work Phone: 5(361)954-156175 [place] [address] 10-09-2023 20:23-0500 Respiratory rate 24 /min Dr. Nadir Grady Work Phone: 2(310)296-064675 [place] [address] 10-09-2023 20:23-0500 SaO2% (BldA) [Mass fraction] 93 % Dr. Nadir Grady Work Phone: 7(404)915-489775 [place] [address] 10-09-2023 20:23-0500 Systolic blood pressure 118 mm[Hg] Dr. Nadir Grady Work Phone: 3(688)316-324875 [place] [address] 10-09-2023 18:29-0500 Body mass index (BMI) [Ratio] 34.7 kg/m2 Dr. Nadir Grady Work Phone: 1(821)028-922275 [place] [address] 10-09-2023 18:29-0500 Body weight 109.[address] Nadir Grady Work Phone: 6(837)534-329075 [place] [address] 10-09-2023 18:10-0500 Body height 177.[address] Nadir Grady Work Phone: 7(892)969-603932 [place] [address] 06-26-2023 09:26-0400 Body temperature 97.81 [degF] Fer Merrill APRN.THERMITE BOMB LOADER Work Phone: [facility] 06-26-2023 09:26-0400 Body weight 84.46 kg Fer Merrill APRN.THERMITE BOMB LOADER Work Phone: [facility] 06-26-2023 09:26-0400 Diastolic blood pressure 80 mm[Hg] Fer Merrill APRN.THERMITE BOMB LOADER Work Phone: [facility] 06-26-2023 09:26-0400 Heart rate 72 /min Fer Merrill DATAPOWER DEVELOPER.THERMITE BOMB LOADER Work Phone: [facility] 06-26-2023 09:26-0400 Respiratory rate 16 /min Fer Merrill DATAPOWER DEVELOPER.THERMITE BOMB LOADER Work Phone: [facility] 06-26-2023 09:26-0400 SaO2% (BldA) [Mass fraction] 97 % Fer Merrill DATAPOWER DEVELOPER.THERMITE BOMB LOADER Work Phone: [facility] 06-26-2023 09:26-0400 Systolic blood pressure 142 mm[Hg] Fer Merrill DATAPOWER DEVELOPER.THERMITE BOMB LOADER Work Phone: [facility] 05-15-2023 08:55-0400 Body height 177.[address] Nadir Grady Work Phone: [facility] 05-15-2023 08:55-0400 Body mass index (BMI) [Ratio] 27.1 kg/m2 Dr. Nadir Grady Work Phone: [facility] 05-15-2023 08:55-0400 Body weight 85.[address] Nadir Grady Work Phone: [facility] 05-15-2023 08:55-0400 Diastolic blood pressure 74 mm[Hg] Dr. Nadir Grady Work Phone: [facility] 05-15-2023 08:55-0400 Heart rate 66 /min Dr. Nadir Grady Work Phone: [facility] 05-15-2023 08:55-0400 Respiratory rate 20 /min Dr. Nadir Grady Work Phone: [facility] 05-15-2023 08:55-0400 Systolic blood pressure 157 mm[Hg] Dr. Nadir Grady Work Phone: [facility] 04-01-2023 07:38-0400 Body temperature 97.5 [degF] Blanca Lee PA-C Work Phone: [facility] 04-01-2023 07:38-0400 Body weight 78.93 kg Blanca Athy PA-C Work Phone: [facility] 04-01-2023 07:38-0400 Diastolic blood pressure 74 mm[Hg] Blanca Athy PA-C Work Phone: [facility] 04-01-2023 07:38-0400 Heart rate 68 /min Blanca Athy PA-C Work Phone: [facility] 04-01-2023 07:38-0400 Respiratory rate 16 /min Blanca Athy PA-C Work Phone: [facility] 04-01-2023 07:38-0400 SaO2% (BldA) [Mass fraction] 98 % Blanca Athy PA-C Work Phone: [facility] 04-01-2023 07:38-0400 Systolic blood pressure 142 mm[Hg] Blanca Athy PA-C Work Phone: [facility] 03-10-2023 12:40-0400 Body temperature 98.01 [degF] Ute Rl DATAPOWER DEVELOPER.THERMITE BOMB LOADER Work Phone: [facility] 03-10-2023 12:40-0400 Body weight 79.29 kg Ute Rl DATAPOWER DEVELOPER.THERMITE BOMB LOADER Work Phone: [facility] 03-10-2023 12:40-0400 Diastolic blood pressure 78 mm[Hg] Ute Rl DATAPOWER DEVELOPER.THERMITE BOMB LOADER Work Phone: [facility] 03-10-2023 12:40-0400 Heart rate 71 /min Ute Rl DATAPOWER DEVELOPER.THERMITE BOMB LOADER Work Phone: [facility] 03-10-2023 12:40-0400 Respiratory rate 18 /min Ute Rl DATAPOWER DEVELOPER.THERMITE BOMB LOADER Work Phone: [facility] 03-10-2023 12:40-0400 SaO2% (BldA) [Mass fraction] 99 % Ute Rl DATAPOWER DEVELOPER.THERMITE BOMB LOADER Work Phone: [facility] 03-10-2023 12:40-0400 Systolic blood pressure 136 mm[Hg] Ute Yanezk DATAPOWER DEVELOPER.THERMITE BOMB LOADER Work Phone: [facility] 11-28-2022 12:33-0400 Body height 175 cm Martha Boston PA-C Work Phone: [facility] 11-28-2022 12:33-0400 Body temperature 98.1 [degF] Martha Boston PA-C Work Phone: [facility] 11-28-2022 12:33-0400 Body weight 78.47 kg Martha Boston PA-C Work Phone: [facility] 11-28-2022 12:33-0400 Diastolic blood pressure 66 mm[Hg] Martha Boston PA-C Work Phone: [facility] 11-28-2022 12:33-0400 Heart rate 66 /min Martha Boston PA-C Work Phone: [facility] 11-28-2022 12:33-0400 Respiratory rate 16 /min Martha Boston PA-C Work Phone: [facility] 11-28-2022 12:33-0400 Systolic blood pressure 136 mm[Hg] Martha Boston PA-C Work Phone: [facility] 11-21-2022 09:39-0400 Body temperature 97.5 [degF] Jenna Dahlhausen DATAPOWER DEVELOPER.THERMITE BOMB LOADER Work Phone: [facility] 11-21-2022 09:39-0400 Body weight 79.92 kg Jenna Dahlhausen DATAPOWER DEVELOPER.THERMITE BOMB LOADER Work Phone: [facility] 11-21-2022 09:39-0400 Diastolic blood pressure 70 mm[Hg] Jenna Dahlhausen DATAPOWER DEVELOPER.THERMITE BOMB LOADER Work Phone: [facility] 11-21-2022 09:39-0400 Heart rate 73 /min Jenna Dahlhausen DATAPOWER DEVELOPER.THERMITE BOMB LOADER Work Phone: [facility] 11-21-2022 09:39-0400 Respiratory rate 18 /min Jenna Dahlhausen DATAPOWER DEVELOPER.THERMITE BOMB LOADER Work Phone: [facility] 11-21-2022 09:39-0400 SaO2% (BldA) [Mass fraction] 98 % Jenna Lamhausen DATAPOWER DEVELOPER.THERMITE BOMB LOADER Work Phone: [facility] 11-21-2022 09:39-0400 Systolic blood pressure 115 mm[Hg] Jenna Lamhausen DATAPOWER DEVELOPER.THERMITE BOMB LOADER Work Phone: [facility] 11-12-2022 11:29-0400 Body temperature 97.3 [degF] Fer Garfield DATAPOWER DEVELOPER.THERMITE BOMB LOADER Work Phone: [facility] 11-12-2022 11:29-0400 Body weight 80.83 kg Fer Merrill DATAPOWER DEVELOPER.THERMITE BOMB LOADER Work Phone: [facility] 11-12-2022 11:29-0400 Diastolic blood pressure 78 mm[Hg] Fer Garfield DATAPOWER DEVELOPER.THERMITE BOMB LOADER Work Phone: [facility] 11-12-2022 11:29-0400 Heart rate 86 /min Fer Garfield DATAPOWER DEVELOPER.THERMITE BOMB LOADER Work Phone: [facility] 11-12-2022 11:29-0400 Respiratory rate 18 /min Fer Garfield DATAPOWER DEVELOPER.THERMITE BOMB LOADER Work Phone: [facility] 11-12-2022 11:29-0400 SaO2% (BldA) [Mass fraction] 97 % Fer Merrill DATAPOWER DEVELOPER.THERMITE BOMB LOADER Work Phone: [facility] 11-12-2022 11:29-0400 Systolic blood pressure 142 mm[Hg] Fer Garfield DATAPOWER DEVELOPER.THERMITE BOMB LOADER Work Phone: [facility] 10-29-2022 16:10-0500 Body height 177.8 cm Cody Pavon PA-C Work Phone: [facility] 10-29-2022 16:10-0500 Body temperature 97.9 [degF] Cody Pavon PA-C Work Phone: [facility] 10-29-2022 16:10-0500 Body weight 81.19 kg Cody Galena PA-C Work Phone: [facility] 10-29-2022 16:10-0500 Diastolic blood pressure 64 mm[Hg] Cody Galena PA-C Work Phone: [facility] 10-29-2022 16:10-0500 Heart rate 82 /min Cody Galena PA-C Work Phone: [facility] 10-29-2022 16:10-0500 SaO2% (BldA) [Mass fraction] 96 % Cody Galena PA-C Work Phone: [facility] 10-29-2022 16:10-0500 Systolic blood pressure 124 mm[Hg] Cody Savanah PA-C Work Phone: [facility] 10-14-2022 12:30-0500 Diastolic blood pressure 81 mm[Hg] Thai Santiago MD Work Phone: [facility] 10-14-2022 12:30-0500 Heart rate 82 /min Thai Santiago MD Work Phone: [facility] 10-14-2022 12:30-0500 Respiratory rate 20 /min Thai Santiago MD Work Phone: [facility] 10-14-2022 12:30-0500 SaO2% (BldA) [Mass fraction] 97 % Thai Santiago MD Work Phone: [facility] 10-14-2022 12:30-0500 Systolic blood pressure 175 mm[Hg] Thai Santiago MD Work Phone: [facility] 10-14-2022 11:55-0500 Body temperature 97.5 [degF] Thai Santiago MD Work Phone: [facility] 10-14-2022 11:05-0500 Body height 177.8 cm Thai Santiago MD Work Phone: [facility] 10-14-2022 11:05-0500 Body weight 78.93 kg Thai Santiago MD Work Phone: [facility] 10-05-2022 11:43-0500 Body weight 78.93 kg Nadir Grady MD Work Phone: [facility] 10-05-2022 11:43-0500 Diastolic blood pressure 68 mm[Hg] Nadir Grady MD Work Phone: [facility] 10-05-2022 11:43-0500 Heart rate 77 /min Nadir Grady MD Work Phone: [facility] 10-05-2022 11:43-0500 Respiratory rate 16 /min Nadir Grady MD Work Phone: [facility] 10-05-2022 11:43-0500 SaO2% (BldA) [Mass fraction] 96 % Nadir Grady MD Work Phone: [facility] 10-05-2022 11:43-0500 Systolic blood pressure 110 mm[Hg] Nadir Grady MD Work Phone: [facility] 09-23-2022 13:25-0500 Body temperature 97.81 [degF] Miladys Praisler-Wood DATAPOWER DEVELOPER.THERMITE BOMB LOADER Work Phone: [facility] 09-23-2022 13:25-0500 Body weight 81.1 kg Miladys Praisler-Wood DATAPOWER DEVELOPER.THERMITE BOMB LOADER Work Phone: [facility] 09-23-2022 13:25-0500 Diastolic blood pressure 72 mm[Hg] Miladys Praisler-Wood DATAPOWER DEVELOPER.THERMITE BOMB LOADER Work Phone: [facility] 09-23-2022 13:25-0500 Heart rate 75 /min Miladys Praisler-Wood DATAPOWER DEVELOPER.THERMITE BOMB LOADER Work Phone: [facility] 09-23-2022 13:25-0500 Respiratory rate 21 /min Miladys Praisler-Wood DATAPOWER DEVELOPER.THERMITE BOMB LOADER Work Phone: [facility] 09-23-2022 13:25-0500 SaO2% (BldA) [Mass fraction] 98 % Miladys Praisler-Wood DATAPOWER DEVELOPER.THERMITE BOMB LOADER Work Phone: [facility] 09-23-2022 13:25-0500 Systolic blood pressure 152 mm[Hg] Miladys Butt DATAPOWER DEVELOPER.THERMITE BOMB LOADER Work Phone: [facility] 09-19-2022 15:25-0500 Body temperature 97.7 [degF] Jenna Dahlhausen DATAPOWER DEVELOPER.THERMITE BOMB LOADER Work Phone: [facility] 09-19-2022 15:25-0500 Body weight 78.65 kg Jenna Dahlhausen DATAPOWER DEVELOPER.THERMITE BOMB LOADER Work Phone: [facility] 09-19-2022 15:25-0500 Diastolic blood pressure 82 mm[Hg] Jenna Dahlhausen DATAPOWER DEVELOPER.THERMITE BOMB LOADER Work Phone: [facility] 09-19-2022 15:25-0500 Heart rate 76 /min Jenna Dahlhausen DATAPOWER DEVELOPER.THERMITE BOMB LOADER Work Phone: [facility] 09-19-2022 15:25-0500 Respiratory rate 16 /min Jenna Dahlhausen DATAPOWER DEVELOPER.THERMITE BOMB LOADER Work Phone: [facility] 09-19-2022 15:25-0500 SaO2% (BldA) [Mass fraction] 95 % Jenna Dahlhausen DATAPOWER DEVELOPER.THERMITE BOMB LOADER Work Phone: [facility] 09-19-2022 15:25-0500 Systolic blood pressure 128 mm[Hg] Jenna Dahlhausen DATAPOWER DEVELOPER.THERMITE BOMB LOADER Work Phone: [facility] 08-21-2022 09:03-0500 Body weight 78.02 kg Nadir Grady MD Work Phone: [facility] 08-21-2022 09:03-0500 Diastolic blood pressure 74 mm[Hg] Nadir Grady MD Work Phone: [facility] 08-21-2022 09:03-0500 Heart rate 76 /min Nadir Grady MD Work Phone: [facility] 08-21-2022 09:03-0500 Respiratory rate 16 /min Nadir Grady MD Work Phone: [facility] 08-21-2022 09:03-0500 Systolic blood pressure 128 mm[Hg] Nadir Grady MD Work Phone: [facility] 08-05-2022 12:56-0500 Body height 177.8 cm Mike Lucero MD Work Phone: [facility] 08-05-2022 12:56-0500 Body weight 77.11 kg Mike Lucero MD Work Phone: [facility] 08-05-2022 12:56-0500 Diastolic blood pressure 79 mm[Hg] Mike Lucero MD Work Phone: [facility] 08-05-2022 12:56-0500 Heart rate 73 /min Mike Lucero MD Work Phone: [facility] 08-05-2022 12:56-0500 Respiratory rate 18 /min Mike Lucero MD Work Phone: [facility] 08-05-2022 12:56-0500 Systolic blood pressure 159 mm[Hg] Mike Lucero MD Work Phone: [facility] 07-30-2022 15:28-0500 Body weight 77.11 kg Franny Catalan DATAPOWER DEVELOPER.THERMITE BOMB LOADER Work Phone: [facility] 07-30-2022 15:28-0500 Diastolic blood pressure 70 mm[Hg] Franny Catalan DATAPOWER DEVELOPER.THERMITE BOMB LOADER Work Phone: [facility] 07-30-2022 15:28-0500 Heart rate 78 /min Franny Alayna DATAPOWER DEVELOPER.THERMITE BOMB LOADER Work Phone: [facility] 07-30-2022 15:28-0500 Respiratory rate 16 /min Franny Alayna DATAPOWER DEVELOPER.THERMITE BOMB LOADER Work Phone: [facility] 07-30-2022 15:28-0500 Systolic blood pressure 136 mm[Hg] Franny Catalan DATAPOWER DEVELOPER.[employer] LOADER Work Phone: [facility] 06-27-2022 09:25-0400 Body height 177.8 cm Thai Santiago MD Work Phone: [facility] 06-27-2022 09:25-0400 Body temperature 97.39 [degF] Thai Santiago MD Work Phone: [facility] 06-27-2022 09:25-0400 Body weight 71.67 kg Thai Santiago MD Work Phone: [facility] 06-27-2022 09:25-0400 Diastolic blood pressure 62 mm[Hg] Thai Santiago MD Work Phone: [facility] 06-27-2022 09:25-0400 Heart rate 80 /min Thai Santiago MD Work Phone: [facility] 06-27-2022 09:25-0400 SaO2% (BldA) [Mass fraction] 97 % Thai Santiago MD Work Phone: [facility] 06-27-2022 09:25-0400 Systolic blood pressure 110 mm[Hg] Thai Santiago MD Work Phone: [facility] 06-25-2022 07:59-0400 Body temperature 98.71 [degF] Martha Boston PA-C Work Phone: [facility] 06-25-2022 07:59-0400 Body weight 70.76 kg Martha Boston PA-C Work Phone: [facility] 06-25-2022 07:59-0400 Diastolic blood pressure 50 mm[Hg] Martha Boston PA-C Work Phone: [facility] 06-25-2022 07:59-0400 Heart rate 76 /min Martha Boston PA-C Work Phone: [facility] 06-25-2022 07:59-0400 Respiratory rate 16 /min Martha Boston PA-C Work Phone: [facility] 06-25-2022 07:59-0400 Systolic blood pressure 80 mm[Hg] Martha Boston PA-C Work Phone: [facility] 05-28-2022 21:33-0400 Diastolic blood pressure 89 mm[Hg] Dr. Nadir Grady Work Phone: [facility] Work Phone: 05-28-2022 21:33-0400 Heart rate 74 /min Dr. Nadir Grady Work Phone: [facility] Work Phone: 05-28-2022 21:33-0400 Respiratory rate 16 /min Dr. Nadir Grady Work Phone: [facility] Work Phone: 05-28-2022 21:33-0400 SaO2% (BldA) [Mass fraction] 98 % Dr. Nadir Grady Work Phone: [facility] Work Phone: 05-28-2022 21:33-0400 Systolic blood pressure 184 mm[Hg] Dr. Nadir Grady Work Phone: [facility] Work Phone: 05-28-2022 16:02-0400 Body height 177.[address] Nadir Grady Work Phone: [facility] Work Phone: 05-28-2022 16:02-0400 Body mass index (BMI) [Ratio] 23.1 kg/m2 Dr. Nadir Grady Work Phone: [facility] Work Phone: 05-28-2022 16:02-0400 Body temperature 98.2 [degF] Dr. Nadir Grady Work Phone: [facility] Work Phone: 05-28-2022 16:02-0400 Body weight 73.[address] Nadir Grady Work Phone: [facility] Work Phone: 05-13-2022 07:45-0400 Body temperature 98.1 [degF] Martha Boston PA-C Work Phone: [facility] 05-13-2022 07:45-0400 Body weight 73.48 kg Martha Boston PA-C Work Phone: [facility] 05-13-2022 07:45-0400 Diastolic blood pressure 66 mm[Hg] Martha Boston PA-C Work Phone: [facility] 05-13-2022 07:45-0400 Heart rate 72 /min Martha Boston PA-C Work Phone: [facility] 05-13-2022 07:45-0400 Respiratory rate 16 /min Martha Boston PA-C Work Phone: [facility] 05-13-2022 07:45-0400 Systolic blood pressure 138 mm[Hg] Martha Boston PA-C Work Phone: [facility] 04-25-2022 13:14-0400 Body temperature 97.81 [degF] Rin Latiferich DATAPOWER DEVELOPER.THERMITE BOMB LOADER Work Phone: [facility] 04-25-2022 13:14-0400 Body weight 79.52 kg Rin Diederich DATAPOWER DEVELOPER.THERMITE BOMB LOADER Work Phone: [facility] 04-25-2022 13:14-0400 Diastolic blood pressure 70 mm[Hg] Rin Diederich DATAPOWER DEVELOPER.THERMITE BOMB LOADER Work Phone: [facility] 04-25-2022 13:14-0400 Heart rate 86 /min Rin Diederich DATAPOWER DEVELOPER.THERMITE BOMB LOADER Work Phone: [facility] 04-25-2022 13:14-0400 Respiratory rate 16 /min Rin Diederich DATAPOWER DEVELOPER.THERMITE BOMB LOADER Work Phone: [facility] 04-25-2022 13:14-0400 SaO2% (BldA) [Mass fraction] 97 % Rin Diederich DATAPOWER DEVELOPER.THERMITE BOMB LOADER Work Phone: [facility] 04-25-2022 13:14-0400 Systolic blood pressure 109 mm[Hg] Rin Diederich DATAPOWER DEVELOPER.THERMITE BOMB LOADER Work Phone: [facility] 04-24-2022 07:46-0400 Body height 177.[address] Nadir Grady Work Phone: [facility] Work Phone: 04-24-2022 07:46-0400 Body mass index (BMI) [Ratio] 23.9 kg/m2 Dr. Nadir Grady Work Phone: [facility] Work Phone: 04-24-2022 07:46-0400 Body temperature 96.8 [degF] Dr. Nadir Grady Work Phone: [facility] Work Phone: 04-24-2022 07:46-0400 Body weight 75.[address] Nadir Grady Work Phone: [facility] Work Phone: 04-24-2022 07:46-0400 Diastolic blood pressure 72 mm[Hg] Dr. Nadir Grady Work Phone: [facility] Work Phone: 04-24-2022 07:46-0400 Heart rate 83 /min Dr. Nadir Grady Work Phone: [facility] Work Phone: 04-24-2022 07:46-0400 Respiratory rate 16 /min Dr. Nadir Grady Work Phone: [facility] Work Phone: 04-24-2022 07:46-0400 SaO2% (BldA) [Mass fraction] 99 % Dr. Nadir Grady Work Phone: [facility] Work Phone: 04-24-2022 07:46-0400 Systolic blood pressure 134 mm[Hg] Dr. Nadir Grady Work Phone: [facility] Work Phone: 04-19-2022 11:08-0400 Body mass index (BMI) [Ratio] 25.2 kg/m2 Dr. Nadir Grady Work Phone: [facility] Work Phone: 04-19-2022 11:08-0400 Body weight 79.[address] Nadir Grady Work Phone: [facility] Work Phone: 04-19-2022 11:08-0400 Diastolic blood pressure 58 mm[Hg] Dr. Nadir Grady Work Phone: [facility] Work Phone: 04-19-2022 11:08-0400 Heart rate 82 /min Dr. Nadir Grady Work Phone: [facility] Work Phone: 04-19-2022 11:08-0400 Respiratory rate 16 /min Dr. Nadir Grady Work Phone: [facility] Work Phone: 04-19-2022 11:08-0400 Systolic blood pressure 117 mm[Hg] Dr. Nadir Grady Work Phone: [facility] Work Phone: 04-19-2022 08:09-0400 Body temperature 98.2 [degF] Martha Boston PA-C Work Phone: [facility] 04-19-2022 08:09-0400 Body weight 79.83 kg Martha Boston PA-C Work Phone: [facility] 04-19-2022 08:09-0400 Diastolic blood pressure 68 mm[Hg] Martha Boston PA-C Work Phone: [facility] 04-19-2022 08:09-0400 Heart rate 96 /min Martha Boston PA-C Work Phone: [facility] 04-19-2022 08:09-0400 Respiratory rate 18 /min Martha Boston PA-C Work Phone: [facility] 04-19-2022 08:09-0400 Systolic blood pressure 118 mm[Hg] Martha Boston PA-C Work Phone: [facility] 04-15-2022 15:40-0400 Body temperature 97 [degF] Dr. Nadir Grady Work Phone: [facility] Work Phone: 04-15-2022 15:40-0400 Body weight 79.[address] Nadir Grady Work Phone: [facility] Work Phone: 04-15-2022 15:40-0400 Diastolic blood pressure 66 mm[Hg] Dr. Nadir Grady Work Phone: [facility] Work Phone: 04-15-2022 15:40-0400 Heart rate 92 /min Dr. Nadir Grady Work Phone: [facility] Work Phone: 04-15-2022 15:40-0400 Respiratory rate 16 /min Dr. Nadir Grady Work Phone: [facility] Work Phone: 04-15-2022 15:40-0400 SaO2% (BldA) [Mass fraction] 97 % Dr. Nadir Grady Work Phone: [facility] Work Phone: 04-15-2022 15:40-0400 Systolic blood pressure 112 mm[Hg] Dr. Nadir Grady Work Phone: [facility] Work Phone: 03-22-2022 18:46-0400 Diastolic blood pressure 95 mm[Hg] Dr. Nadir Grady Work Phone: [facility] Work Phone: 03-22-2022 18:46-0400 Heart rate 74 /min Dr. Nadir Grady Work Phone: [facility] Work Phone: 03-22-2022 18:46-0400 Respiratory rate 16 /min Dr. Nadir Grady Work Phone: [facility] Work Phone: 03-22-2022 18:46-0400 SaO2% (BldA) [Mass fraction] 99 % Dr. Nadir Grady Work Phone: [facility] Work Phone: 03-22-2022 18:46-0400 Systolic blood pressure 176 mm[Hg] Dr. Nadir Grady Work Phone: [facility] Work Phone: 03-22-2022 13:49-0400 Body height 177.[address] Nadir Grady Work Phone: [facility] Work Phone: 03-22-2022 13:49-0400 Body mass index (BMI) [Ratio] 25.2 kg/m2 Dr. Nadir Grady Work Phone: [facility] Work Phone: 03-22-2022 13:49-0400 Body temperature 98.1 [degF] Dr. Nadir Grady Work Phone: [facility] Work Phone: 03-22-2022 13:49-0400 Body weight 79.[address] Nadir Grady Work Phone: [facility] Work Phone: 02-11-2022 08:44-0400 Body height 177.[address] Nadir Grady Work Phone: [facility] Work Phone: 02-11-2022 08:44-0400 Body weight 78.[address] Nadir Grady Work Phone: [facility] Work Phone: 02-08-2022 08:06-0400 Body mass index (BMI) [Ratio] 24.8 kg/m2 Dr. Nadir Grady Work Phone: [facility] Work Phone: 02-07-2022 07:50-0400 Body temperature 97.81 [degF] Jenna Dahlhausen DATAPOWER DEVELOPER.THERMITE BOMB LOADER Work Phone: [facility] 02-07-2022 07:50-0400 Body weight 78.93 kg Jenna Dahlhausen DATAPOWER DEVELOPER.THERMITE BOMB LOADER Work Phone: [facility] 02-07-2022 07:50-0400 Diastolic blood pressure 60 mm[Hg] Jenna Dahlhausen DATAPOWER DEVELOPER.THERMITE BOMB LOADER Work Phone: [facility] 02-07-2022 07:50-0400 Heart rate 83 /min Jenna Dahlhausen DATAPOWER DEVELOPER.THERMITE BOMB LOADER Work Phone: [facility] 02-07-2022 07:50-0400 Respiratory rate 18 /min Jenna Dahlhausen DATAPOWER DEVELOPER.THERMITE BOMB LOADER Work Phone: [facility] 02-07-2022 07:50-0400 SaO2% (BldA) [Mass fraction] 99 % Jenna Dahlhausen DATAPOWER DEVELOPER.THERMITE BOMB LOADER Work Phone: [facility] 02-07-2022 07:50-0400 Systolic blood pressure 122 mm[Hg] Jenna Dahlhausen DATAPOWER DEVELOPER.THERMITE BOMB LOADER Work Phone: [facility] 01-04-2022 08:56-0400 Body mass index (BMI) [Ratio] 24.8 kg/m2 Dr. Nadir Grady Work Phone: [facility] Work Phone: 01-04-2022 08:56-0400 Body weight 78.[address] Nadir Grady Work Phone: [facility] Work Phone: 01-04-2022 08:56-0400 Diastolic blood pressure 61 mm[Hg] Dr. Nadir Grady Work Phone: [facility] Work Phone: 01-04-2022 08:56-0400 Heart rate 99 /min Dr. Nadir Grady Work Phone: [facility] Work Phone: 01-04-2022 08:56-0400 Respiratory rate 20 /min Dr. Nadir Grady Work Phone: [facility] Work Phone: 01-04-2022 08:56-0400 Systolic blood pressure 107 mm[Hg] Dr. Nadir Grady Work Phone: [facility] Work Phone: 01-04-2022 08:56-0400 Body height 177.[address] Nadir Grady Work Phone: [facility] Work Phone: 01-04-2022 08:56-0400 Body mass index (BMI) [Ratio] 24.8 kg/m2 Dr. Nadir Grady Work Phone: [facility] Work Phone: 01-04-2022 08:56-0400 Body weight 78.[address] Nadir Grady Work Phone: [facility] Work Phone: 01-04-2022 08:56-0400 Diastolic blood pressure 61 mm[Hg] Dr. Nadir Grady Work Phone: [facility] Work Phone: 01-04-2022 08:56-0400 Heart rate 99 /min Dr. Nadir Grady Work Phone: [facility] Work Phone: 01-04-2022 08:56-0400 Respiratory rate 20 /min Dr. Nadir Grady Work Phone: [facility] Work Phone: 01-04-2022 08:56-0400 Systolic blood pressure 107 mm[Hg] Dr. Nadir Grady Work Phone: [facility] Work Phone: 12-29-2021 21:03-0400 Diastolic blood pressure 80 mm[Hg] Dr. Nadir Grady Work Phone: [facility] Work Phone: 12-29-2021 21:03-0400 Heart rate 83 /min Dr. Nadir Grady Work Phone: [facility] Work Phone: 12-29-2021 21:03-0400 Respiratory rate 17 /min Dr. Nadir Grady Work Phone: [facility] Work Phone: 12-29-2021 21:03-0400 SaO2% (BldA) [Mass fraction] 98 % Dr. Nadir Grady Work Phone: [facility] Work Phone: 12-29-2021 21:03-0400 Systolic blood pressure 143 mm[Hg] Dr. Nadir Grady Work Phone: [facility] Work Phone: 12-29-2021 17:20-0400 Body height 177.[address] Nadir Grady Work Phone: [facility] Work Phone: 12-29-2021 17:20-0400 Body mass index (BMI) [Ratio] 24.9 kg/m2 Dr. Nadir Grady Work Phone: [facility] Work Phone: 12-29-2021 17:20-0400 Body temperature 97.4 [degF] Dr. Nadir Grady Work Phone: [facility] Work Phone: 12-29-2021 17:20-0400 Body weight 78.[address] Nadir Grady Work Phone: [facility] Work Phone: 12-20-2021 09:31-0400 Diastolic blood pressure 40 mm[Hg] Dr. Nadir Grady Work Phone: [facility] Work Phone: 12-20-2021 09:31-0400 Heart rate 100 /min Dr. Nadir Grady Work Phone: [facility] Work Phone: 12-20-2021 09:31-0400 Respiratory rate 20 /min Dr. Nadir Grady Work Phone: [facility] Work Phone: 12-20-2021 09:31-0400 Systolic blood pressure 70 mm[Hg] Dr. Nadir Grady Work Phone: [facility] Work Phone: 12-20-2021 09:31-0400 Diastolic blood pressure 40 mm[Hg] Dr. Nadir Grady Work Phone: [facility] Work Phone: 12-20-2021 09:31-0400 Heart rate 100 /min Dr. Nadir Grady Work Phone: [facility] Work Phone: 12-20-2021 09:31-0400 Respiratory rate 20 /min Dr. Nadir Grady Work Phone: [facility] Work Phone: 12-20-2021 09:31-0400 Systolic blood pressure 70 mm[Hg] Dr. Nadir Grady Work Phone: [facility] Work Phone: 12-13-2021 06:59-0400 Body height 177.[address] Nadir Grady Work Phone: [facility] Work Phone: 12-13-2021 06:59-0400 Body weight 77.[address] Nadir Grady Work Phone: [facility] Work Phone: 12-12-2021 07:46-0400 Body mass index (BMI) [Ratio] 24.3 kg/m2 Dr. Nadir Grady Work Phone: [facility] Work Phone: 11-12-2021 08:35-0400 Body mass index (BMI) [Ratio] 24.3 kg/m2 Dr. Nadir Grady Work Phone: [facility] Work Phone: 11-12-2021 08:35-0400 Body weight 77.[address] Nadir Grady Work Phone: [facility] Work Phone: 11-12-2021 08:35-0400 Diastolic blood pressure 57 mm[Hg] Dr. Nadir Grady Work Phone: [facility] Work Phone: 11-12-2021 08:35-0400 Heart rate 85 /min Dr. Nadir Grady Work Phone: [facility] Work Phone: 11-12-2021 08:35-0400 Respiratory rate 16 /min Dr. Nadir Grady Work Phone: [facility] Work Phone: 11-12-2021 08:35-0400 Systolic blood pressure 91 mm[Hg] Dr. Nadir Grady Work Phone: [facility] Work Phone: 11-02-2021 10:10-0500 Body mass index (BMI) [Ratio] 24.7 kg/m2 Dr. Nadir Grady Work Phone: [facility] Work Phone: 11-02-2021 10:10-0500 Body temperature 96.9 [degF] Dr. Nadir Grady Work Phone: [facility] Work Phone: 11-02-2021 10:10-0500 Body weight 78.[address] Nadir Grady Work Phone: [facility] Work Phone: 11-02-2021 10:10-0500 Diastolic blood pressure 82 mm[Hg] Dr. Nadir Grady Work Phone: [facility] Work Phone: 11-02-2021 10:10-0500 Heart rate 86 /min Dr. Nadir Grady Work Phone: [facility] Work Phone: 11-02-2021 10:10-0500 Respiratory rate 17 /min Dr. Nadir Grady Work Phone: [facility] Work Phone: 11-02-2021 10:10-0500 SaO2% (BldA) [Mass fraction] 98 % Dr. Nadir Grady Work Phone: [facility] Work Phone: 11-02-2021 10:10-0500 Systolic blood pressure 148 mm[Hg] Dr. Nadir Grady Work Phone: [facility] Work Phone: 10-16-2021 12:49-0500 Diastolic blood pressure 74 mm[Hg] Dr. Nadir Grady Work Phone: [facility] Work Phone: 10-16-2021 12:49-0500 Heart rate 75 /min Dr. Nadir Grady Work Phone: [facility] Work Phone: 10-16-2021 12:49-0500 Respiratory rate 16 /min Dr. Nadir Grady Work Phone: [facility] Work Phone: 10-16-2021 12:49-0500 SaO2% (BldA) [Mass fraction] 100 % Dr. Nadir Grady Work Phone: [facility] Work Phone: 10-16-2021 12:49-0500 Systolic blood pressure 138 mm[Hg] Dr. Nadir Grady Work Phone: [facility] Work Phone: 10-16-2021 10:03-0500 Body mass index (BMI) [Ratio] 24.5 kg/m2 Dr. Nadir Grady Work Phone: [facility] Work Phone: 10-16-2021 10:03-0500 Body temperature 97.7 [degF] Dr. Nadir Grady Work Phone: [facility] Work Phone: 10-16-2021 10:03-0500 Body weight 77.[address] Nadir Grady Work Phone: [facility] Work Phone: 08-16-2021 14:19-0500 Diastolic blood pressure 62 mm[Hg] Dr. Nadir Grady Work Phone: [facility] Work Phone: 08-16-2021 14:19-0500 Heart rate 59 /min Dr. Nadir Grady Work Phone: [facility] Work Phone: 08-16-2021 14:19-0500 Respiratory rate 16 /min Dr. Nadir Grady Work Phone: [facility] Work Phone: 08-16-2021 14:19-0500 SaO2% (BldA) [Mass fraction] 96 % Dr. Nadir Grady Work Phone: [facility] Work Phone: 08-16-2021 14:19-0500 Systolic blood pressure 124 mm[Hg] Dr. Nadir Grady Work Phone: [facility] Work Phone: 08-16-2021 09:30-0500 Body mass index (BMI) [Ratio] 24.5 kg/m2 Dr. Nadir Grady Work Phone: [facility] Work Phone: 08-16-2021 09:30-0500 Body temperature 98.4 [degF] Dr. Nadir Grady Work Phone: [facility] Work Phone: 08-16-2021 09:30-0500 Body weight 77.[address] Nadir Grady Work Phone: [facility] Work Phone: 02-07-2017 09:55-0400 BMI (Body Mass Index) 26.78 kg/m2 MD [facility] Work Phone: 02-07-2017 09:55-0400 BP Diastolic 62 mm[Hg] Jd Kern MD [facility] Work Phone: 02-07-2017 09:55-0400 BP Systolic 108 mm[Hg] Jd Kern MD [facility] Work Phone: 02-07-2017 09:55-0400 Height 180.34 cm Jd Kern MD [facility] Work Phone: 02-07-2017 09:55-0400 Pulse (Heart Rate) 78 /min Jd Kern MD [facility] Work Phone: 02-07-2017 09:55-0400 Respiratory Rate 18 /min Jd Kern MD [facility] Work Phone: 02-07-2017 09:55-0400 Weight 87.09 kg Jd Kern MD [facility] Work Phone: 01-08-2017 14:17-0400 Heart rate 81 /min Beulah Terrell RN [facility] Work Phone: 01-08-2017 13:55-0400 BMI (Body Mass Index) 27.05 kg/m2 Beulah Terrell RN [facility] Work Phone: 01-08-2017 13:55-0400 Body weight 88 kg Griselda Bell RN [facility] Work Phone: 01-08-2017 13:55-0400 BP Diastolic 60 mm[Hg] Beulah Terrell RN [facility] Work Phone: 01-08-2017 13:55-0400 BP Systolic 100 mm[Hg] Beulah Terrell RN [facility] Work Phone: 01-08-2017 13:55-0400 Height 180.34 cm Beulah Terrell RN [facility] Work Phone: 01-08-2017 13:55-0400 Pulse (Heart Rate) 81 /min Beulah Terrell RN [facility] Work Phone: 01-08-2017 13:55-0400 Respiratory Rate 20 /min Beulah Terrell RN [facility] Work Phone: 01-08-2017 13:55-0400 Weight 88 kg Beulah Terrell RN [facility] Work Phone: Encounters Encounter Date Encounter Type Care Provider Facility Start: 03-25-2025 ambulatory Nadir Grady Facility :[facility] Start: 03-10-2025 End: 03-10-[address] Nadir Grady MD Work Phone: -Pulmonary Services/Neurology Start: 03-10-2025 End: 03-10-2025 Patient encounter procedure Yolanda DENISE -Pulmonary Services/Neurology Work Phone: Start: 03-10-2025 End: 03-10-2025 ambulatory Nadir Grady Facility:[facility] Start: 03-08-2025 End: 03-08-2025 Telephone encounter Molly Houser APRN.CNP Work Phone: Neurology Start: 03-07-2025 End: 03-07-2025 Chart abstracting Nadir Grady MD Work Phone: [facility] [place] Comment on above: Abstract ([facility] ED vis it, without admission) Start: 03-05-2025 End: 03-05-2025 Emergency department patient visit Dr. Nadir Grady MD Work Phone: -Emergency Department Work Phone: Start: 03-03-2025 End: 03-03-2025 Telephone encounter Molly Houser THERMITE BOMB LOADER Work Phone: Neurology Start: 02-23-2025 End: 02-23-2025 Refill Nadir Grady MD Work Phone: [facility] Comment on above: Refill Request Start: 02-22-2025 End: 02-22-2025 Chart abstracting Nadir Grady MD Work Phone: [facility] Comment on above: Outside Cardiology Start: 02-22-2025 End: 02-22-[address] Jd Kern MD -[facility] Work Phone: Start: 02-22-2025 End: 02-22-[address] Nadir Grady MD Work Phone: [facility] Work Phone: Start: 01-27-2025 End: 01-27-2025 Refill Nadir Grady MD Work Phone: [address] [place] [address] Comment on above: Refill Request Start: 01-18-2025 End: 01-18-2025 ambulatory MARTHA BOSTON Facility:[facility] Start: 01-18-2025 End: 01-18-2025 ambulatory MARTHAEj BOSTON Facility:[facility] Start: 12-23-2024 Non-patient / Non-visit Dr. Jered helton MD -[facility] Start: 12-23-2024 End: 12-23-[address] Nadir Grady MD Work Phone: [facility] Work Phone: Start: 12-23-2024 End: 12-23-2024 Patient encounter procedure Yolanda Dean [place] -Cardiovascular Services Work Phone: Start: 12-23-2024 End: 12-23-2024 ambulatory Nadir Grady Facility:[facility] Start: 12-15-2024 End: 12-15-2024 ambulatory Nirav Wilson [facility] Work Phone: Pharmacy Medicine Start: 12-15-2024 End: 12-15-2024 Patient encounter procedure Nirav Wilson [facility] Work Phone: Pharmacy Medicine Comment on above: Care Coordination (P victoria Management Review for Pharmacist Referral for Diabetes Management) Start: 12-13-2024 End: 12-13-2024 ambulatory MOLLY HOUSER Facility:[facility] Start: 12-13-2024 End: 12-13-2024 Patient encounter procedure Molly Houser DATAPOWER DEVELOPER.THERMITE BOMB LOADER Work Phone: Neurology Comment on above: Obstructive sleep ap kenji (Primary Dx); Insomnia, unspecified type; RLS (restless legs syndrome); Dream enactment behavior; Non-restorative sleep; Frequent nocturnal awakening Start: 12-08-2024 End: 12-08-2024 Patient encounter procedure Yoladna Dean [facility] Work Phone: Start: 12-08-2024 End: 12-08-[address] Nadir Grady MD Work Phone: [facility] Work Phone: Start: 12-08-2024 End: 12-08-2024 ambulatory Nadir Grady Facility:[facility] Start: 11-15-2024 End: 11-16-2024 Telephone encounter Molly Houser DATAPOWER DEVELOPER.THERMITE BOMB LOADER Work Phone: Neurology Comment on above: Results Start: 11-09-2024 End: 11-09-[address] Nadir Grady MD Work Phone: [facility] Work Phone: Start: 11-09-2024 End: 11-09-2024 Patient encounter procedure Molly Houser METAL FLOORING INSTALLER-C -Sleep Lab Work Phone: Start: 11-09-2024 End: 11-09-2024 ambulatory Molly Houser Facility:[facility] Start: 10-25-2024 End: 10-25-2024 Chart abstracting Nadir Grady MD Work Phone: Family [facility] [place] Comment on above: Outside MRI Start: 10-25-2024 End: 10-25-2024 Ophthalmic examination and evaluation Nadir Grady MD Work Phone: [facility] Start: 10-23-2024 End: 10-23-[address] Hany aPz MD -[facility] Work Phone: Start: 10-22-2024 End: 10-22-2024 Patient encounter procedure Molly Houser APRN.THERMITE BOMB LOADER Work Phone: Neurology Comment on above: Dream enactment beha vior (Primary Dx); Snores; RLS (restless legs syndrome); Non-restorative sleep; Excessive daytime sleepiness; Chronic insomnia Start: 10-22-2024 End: 10-23-2024 ambulatory MOLLY HOUSER Facility:[facility] Start: 10-07-2024 End: 10-07-2024 Telephone encounter Martha Boston PA-C Work Phone: [facility] [place] Comment on above: Results Start: 10-07-2024 End: 10-07-2024 Subsequent hospital visit by physician M[facility] W[facility] (I-Stat/1.5t) Work Phone: Radiology Comment on above: Thunderclap headache [G44.53] Start: 10-07-2024 End: 10-07-2024 Office outpatient visit 25 minutes Martha Boston PA-C Work Phone: [facility] [place] Comment on above: Thunderclap headache (Primary Dx); New onset headache Start: 10-07-2024 End: 10-07-2024 ambulatory MARTHA BOSTON Facility:[facility] Start: 09-24-2024 End: 09-24-2024 Chart abstracting Nadir Grady MD Work Phone: [facility] [place] Comment on above: Outside Kzfz-[id number]-ZSY Ordered Start: 09-23-2024 End: 09-23-2024 Chart abstracting Nadir Grady MD Work Phone: [facility] [place] Comment on above: Outside Obls-Glx-IZQ Ordered Start: 09-22-2024 End: 09-22-2024 Chart abstracting Nadir Grady MD Work Phone: [facility] [place] Comment on above: Outside Imaging Start: 09-22-2024 End: 09-22-2024 E-mail encounter from caregiver Karen Piper [facility] Work Phone: [facility] Start: 09-22-2024 End: 09-22-2024 Patient encounter procedure Karen Piper [facility] Work Phone: [facility] Comment on above: Diabetes visit with pharmacist Start: 09-21-2024 End: 09-21-2024 Chart abstracting Nadir Grady MD Work Phone: [facility] [place] Comment on above: Outside [id number]-Wcc-FUS Ordered Start: 09-20-2024 End: 09-20-[address] Hany Paz MD -Laboratory Work Phone: Start: 09-20-2024 End: 09-20-2024 ambulatory Hany Paz Facility:[facility] Start: 09-08-2024 End: 09-08-2024 Patient encounter procedure Yolanda DENISE -[facility] Work Phone: Start: 09-08-2024 End: 09-08-2024 ambulatory Nadir Grady [facility] Start: 09-06-2024 End: 09-06-2024 ambulatory NADIR GRADY Facility:[facility] Start: 09-06-2024 End: 09-06-2024 Subsequent hospital visit by physician Ashley [facility] Work Phone: Radiology Comment on above: Abnormal chest x-ray [R93.89] Start: 09-06-2024 End: 09-06-2024 Patient encounter procedure Nadir Grady MD Work Phone: [facility] Comment on above: 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 Juan Luis Rubio DO -Emergency Department Work Phone: Start: 08-21-2024 End: 08-23-2024 Refill Nadir Grady MD Work Phone: [facility] [place] Comment on above: Refill Request Start: 08-17-2024 End: 08-17-2024 Chart abstracting Karla Wadsworth MA [facility] [place] Comment on above: Procedure (Outside r esult - Heart Cath ) Start: 08-17-2024 Non-patient / Non-visit Dr. Sanchez [facility] Start: 08-17-2024 ambulatory Jd Kern Facility:[facility] Start: 08-16-2024 End: 08-16-2024 Admission to same day surgery center Dr. Jd Kern MD -Sprinkling System Installer/Special Procedures Work Phone: Start: 08-16-2024 ambulatory Jd Kern Facility:[facility] Start: 08-16-2024 End: 08-16-2024 ambulatory [place] Facility:[facility] Start: 08-12-2024 End: 08-12-2024 ambulatory NADIR GRADY Facility:[facility] Start: 08-12-2024 End: 08-12-2024 Patient encounter procedure Bridget Joseph APRN.THERMITE BOMB LOADER Work Phone: [facility] Comment on above: Adverse effect of ov ip-ijb-bumugna medication, initial encounter (Primary Dx) Start: 08-10-2024 End: 08-10-2024 Telephone encounter Martha Boston PA-C Work Phone: [facility] [place] Comment on above: Results Start: 08-09-2024 End: 08-09-2024 ambulatory MARTHA BOSTON Facility:[facility] Start: 08-04-2024 End: 08-04-2024 Telephone encounter Karla Wadsworth MA [facility] [place] Comment on above: Patient Update Start: 07-30-2024 End: 07-30-2024 Chart abstracting Karla Wadsworth MA [facility] [place] Comment on above: Consult (Outside Car diology /) Results (Outside res ults ) Start: 07-28-2024 End: 07-28-2024 Patient encounter procedure Yolanda DENISE -Laboratory Work Phone: Start: 07-28-2024 End: 07-28-2024 Patient encounter procedure Yolanda DENISE -[facility] Work Phone: Start: 07-28-2024 End: 07-28-2024 ambulatory Nadir Grady [place] Start: 07-28-2024 End: 07-28-2024 ambulatory Yolanda DENISE Facility:[facility] Start: 07-24-2024 End: 07-24-2024 Subsequent hospital visit by physician Xr [facility] Work Phone: Radiology Comment on above: Wrist pain, right [M 25.531] Start: 07-24-2024 End: 07-24-2024 ambulatory NADIR GRADY Facility:[facility] Start: 07-24-2024 End: 07-24-2024 Patient encounter procedure Bridget Joseph DATAPOWER DEVELOPER.THERMITE BOMB LOADER Work Phone: [facility] Comment on above: Wrist pain, right (P rimary Dx) Start: 07-21-2024 End: 07-21-2024 Telephone encounter Martha Boston PA-C Work Phone: [facility] Comment on above: Results Start: 07-20-2024 End: 07-20-2024 ambulatory MARTHA BOSTON Facility:[facility] Start: 07-20-2024 End: 07-20-2024 ambulatory MARTHA BOSTON Facility:[facility] Start: 07-20-2024 End: 07-20-2024 Patient encounter procedure Martha Boston PA-C Work Phone: [facility] Comment on above: Medicare annual well ness [...] disorders; Weight loss Start: 06-14-2024 ambulatory Ez Aris Facility:[facility] Start: 06-14-2024 End: 06-14-2024 ambulatory Yolanda DENISE Facility:[facility] Start: 05-28-2024 End: 05-28-2024 ambulatory Nadir Grady Facility:[facility] Start: 04-19-2024 End: 04-19-2024 Chart abstracting Nadir Grady MD Work Phone: [facility] Comment on above: Outside Cardiology Start: 04-19-2024 End: 04-19-2024 ambulatory Nadir Grady [facility] Start: 04-11-2024 ambulatory Ez Aris Facility:[facility] Start: 03-10-2024 ambulatory Aydee Posey [facility] Start: 03-10-2024 Patient encounter procedure Aydee Posey MA [facility] Comment on above: Population Health Na vigation Outreach ([facility]) Start: 02-20-2024 Refill Nadir valladares MD Work Phone: [address] [place] [address] Comment on above: Refill Request Start: 01-21-2024 Refill Franny pagan APRN.CNP Work Phone: [facility] Comment on above: Refill Request Start: 12-30-2023 Chart abstracting Nadir pope MD Work Phone: [facility] Comment on above: Ext / [facility] Start: 12-30-2023 End: 12-30-[address] Nadir Grady Work Phone: [facility] Work Phone: Start: 12-29-2023 End: 12-30-[address] Nadir Grady Work Phone: [facility] Work Phone: Start: 12-29-2023 End: 12-30-[address] Nadir Grady Work Phone: [facility]-Cardiac Rehab Work Phone: Start: 12-22-2023 End: 12-22-2023 Subsequent hospital visit by physician Xr [facility] Work Phone: Radiology Comment on above: Left forearm pain [M 79.632] Start: 12-22-2023 End: 12-22-2023 Patient encounter procedure Karin Hamm APRN.THERMITE BOMB LOADER Work Phone: [facility] Comment on above: Left forearm pain (P rimary Dx); Hand pain, left; Contusion of left forearm, initial encounter Start: 12-05-2023 Chart abstracting Nadir pope MD Work Phone: [facility] Comment on above: External / ER Report & H&P hospitalist Start: 12-04-2023 Non-patient / Non-visit Dr. Rajesh Grady Work Phone: [facility] Start: 12-04-2023 Chart abstracting Nadir pope MD Work Phone: [facility] Comment on above: External / [facility] EKG Start: 12-04-2023 Non-patient / Non-visit Dr. Rajesh Grady Work Phone: [facility] Work Phone: Start: 12-03-2023 End: 12-03-2023 Non-patient / Non-visit Dr. Nadir Grady Work Phone: [facility] Work Phone: Start: 12-03-2023 Non-patient / Non-visit Dr. Rajesh Grady Work Phone: [facility] Work Phone: Start: 12-03-2023 End: 12-04-2023 Evaluation and management of inpatient Dr. Nadir Grady Work Phone: [facility]-Progressive Care Unit Work Phone: Start: 12-03-2023 End: 12-04-[address] Nadir Grady Work Phone: [facility] Work Phone: Start: 12-01-[address] Mar Grady Work Phone: [facility] Work Phone: Start: 11-28-2023 End: 11-30-[address] Nadir Grady Work Phone: [facility] Work Phone: Start: 11-28-2023 End: 11-30-[address] Nadir Grady Work Phone: [facility] Work Phone: Start: 11-28-[address] Mar Grady Work Phone: [facility] Work Phone: Start: 11-24-2023 End: 11-24-2023 Admission to same day surgery center Dr. Nadir Grady Work Phone: [facility]-[employer] Installer/Special Procedures Work Phone: Start: 11-24-2023 End: 11-24-[address] Nadir Grady Work Phone: [facility] Work Phone: Start: 11-19-2023 End: 11-19-[address] Nadir Grady Work Phone: [facility] Work Phone: Start: 11-19-2023 End: 11-19-[address] Nadir Grady Work Phone: [facility]Cardiac [facility] Work Phone: Start: 11-18-2023 Non-patient / Non-visit Dr. Rajesh Grady Work Phone: [facility] Work Phone: Start: 11-11-2023 Non-patient / Non-visit Dr. Rajesh Grady Work Phone: [facility] Start: 11-11-2023 End: 11-11-[address] Nadir Grady Work Phone: [facility] Work Phone: Start: 10-30-2023 Chart abstracting Nadir pope MD Work Phone: [facility] Comment on above: outside cardiology Start: 10-30-2023 End: 10-30-[address] Nadir Grady Work Phone: [facility] Work Phone: Start: 10-24-2023 Chart abstracting Mynor Mckeon [facility] [place] Comment on above: [facility] ER report 4 Start: 10-23-2023 Chart abstracting Luis E Cabrera [facility] [place] Comment on above: Outside Imaging Start: 10-23-2023 End: 10-23-2023 Emergency department patient visit Dr. Nadir Grady Work Phone: [facility]-Emergency Department Work Phone: Start: 10-23-2023 End: 10-23-2023 Patient encounter procedure Ruthann Wadsworth APRN.CNP Work Phone: [facility] Comment on above: Lip swelling (Primar y Dx) Start: 10-16-2023 Chart abstracting Nadir pope MD Work Phone: [facility] Comment on above: ER Discharge Summary (X-ray) Start: 10-15-2023 End: 10-15-2023 Emergency department patient visit Dr. Nadir Grady Work Phone: [facility]-Emergency Department Work Phone: Start: 10-14-2023 ambulatory Nadir valladares MD Work Phone: [facility] Start: 10-13-2023 Non-patient / Non-visit Dr. Rajesh Grady Work Phone: [facility] Start: 10-13-2023 End: 10-13-[address] Nadir Grady Work Phone: [facility] Work Phone: Start: 10-11-2023 Chart abstracting Nadir pope MD Work Phone: [facility] Comment on above: Outside Cardiology ( Cardiac Cath, Echo) Start: 10-11-2023 Non-patient / Non-visit Dr. Rajesh Grady Work Phone: [facility] Work Phone: Start: 10-11-2023 Non-patient / Non-visit Dr. Rajesh Grady Work Phone: [facility] Start: 10-10-2023 Non-patient / Non-visit Dr. Rajesh Grady Work Phone: [facility] Start: 10-10-2023 Chart abstracting Nadir pope MD Work Phone: [facility] Comment on above: ER Discharge Summary (X-ray, H&P) Start: 10-09-2023 End: 10-09-2023 Non-patient / Non-visit Dr. Nadir Grady Work Phone: [facility] Work Phone: Start: 10-09-2023 Non-patient / Non-visit Dr. Rajesh Grady Work Phone: [facility] Work Phone: Start: 10-09-2023 End: 10-11-2023 Evaluation and management of inpatient Dr. Nadir Grady Work Phone: [facility]Progressive [facility] Unit Work Phone: Start: 07-10-2023 End: 07-10-[address] Nadir Grady Work Phone: [facility] Work Phone: Start: 06-26-2023 End: 06-26-2023 Patient encounter procedure Fer Merrill APRN.THERMITE BOMB LOADER Work Phone: [facility] Comment on above: Mouth pain (Primary Dx) Refill Request Start: 06-26-2023 Telephone encounter Nadir Grady MD Work Phone: [facility] Comment on above: Medication Problem Start: 06-19-2023 Telephone encounter Franny oreilly APRN.THERMITE BOMB LOADER Work Phone: [facility] Comment on above: Results Start: 06-19-2023 End: 06-19-2023 Patient encounter procedure Odin Reyes MD Work Phone: [facility] Comment on above: Patient left without being seen (Primary Dx); SOB (shortness of breath) Start: 06-09-2023 Non-patient / Non-visit Dr. Rajesh Grady Work Phone: [facility] Work Phone: Start: 06-06-2023 Non-patient / Non-visit Dr. Rajesh Grady Work Phone: [facility] Start: 06-06-2023 End: 06-06-[address] Nadir Grady Work Phone: [facility] Work Phone: Start: 06-06-2023 End: 06-06-[address] Nadir Grady Work Phone: [facility]Cardi[facility] Work Phone: Start: 05-16-2023 Chart abstracting Nadir pope MD Work Phone: [facility] Comment on above: Outsude cardiology Start: 05-15-2023 End: 05-15-[address] Nadir Grady Work Phone: [facility] Work Phone: Start: 04-11-2023 Telephone encounter Fer heller APRN.THERMITE BOMB LOADER Work Phone: [facility] Comment on above: Results Start: 04-04-2023 Telephone encounter Fer heller DATAPOWER DEVELOPER.THERMITE BOMB LOADER Work Phone: [facility] Comment on above: Results Start: 04-02-2023 Telephone encounter Ruthann Wadsworth DATAPOWER DEVELOPER.THERMITE BOMB LOADER Work Phone: [facility] Comment on above: Results Start: 04-01-2023 End: 04-01-2023 Patient encounter procedure Blanca Lee PA-C Work Phone: [facility] Comment on above: Mouth sores (Primary Dx) Refill Request Start: 03-10-2023 End: 03-10-2023 Patient encounter procedure Ute Rl DATAPOWER DEVELOPER.THERMITE BOMB LOADER Work Phone: [facility] Comment on above: Rash (Primary Dx) Start: 02-04-2023 Telephone encounter Martha pichardo PA-C Work Phone: [facility] Comment on above: Other Refill Request Start: 01-07-2023 Refill Odalis Knutson [facility] [employer] [facility] Comment on above: Refill Request Start: 11-29-2022 Telephone encounter Martha pichardo PA-C Work Phone: [facility] Comment on above: Results Start: 11-28-2022 End: [...] 11-21-2022 End: 11-21-2022 Patient encounter procedure Jenna Janet MURDOCK.THERMITE BOMB LOADER Work Phone: Neurology Comment on above: Syncope, unspecified syncope type (Primary Dx); Orthostatic hypotension Start: 11-12-2022 End: 11-12-2022 Patient encounter procedure Fer King COLLETTE.THERMITE BOMB LOADER Work Phone: [facility] Comment on above: Rhus dermatitis (Valeria yovanny Dx) Start: 11-08-2022 Telephone encounter Lemuel Troy MD Work Phone: Neurology Comment on above: Appointment Start: 11-05-2022 Refill Nadir valladares MD Work Phone: [facility] [place] Comment on above: Refill Request Start: 10-29-2022 End: 10-29-2022 Patient encounter procedure Cody Pavon PA-C Work Phone: General Surgery Comment on above: Long-segment Santos 's esophagus (Primary Dx); Hiatal hernia; Diverticulosis; Other gastritis without bleeding Start: 10-23-2022 Chart abstracting Nadir pope MD Work Phone: [facility] [place] Comment on above: Consult (Consult Car diology ) Start: 10-14-2022 ambulatory HANY JOHNSON Facility: Start: 10-14-2022 End: 10-14-2022 Subsequent hospital visit by physician Thai Santiago MD Work Phone: Endoscopy Comment on above: Anemia, unspecified type [D64.9] Start: 10-04-2022 End: 10-04-2022 Patient encounter procedure Nadir Grady MD Work Phone: [facility] [place] Comment on above: Type 2 diabetes ben itus with diabetic neuropathy, without long-term current use of insulin (HCC) (Primary Dx); Essential hypertension, benign Start: 10-02-2022 Refill Nadir valladares MD Work Phone: [facility] [place] Comment on above: Refill Request Start: 09-24-2022 Telephone encounter Nadir Grady MD Work Phone: [facility] [place] Comment on above: Medication Question Start: 09-23-2022 End: 09-23-2022 Subsequent hospital visit by physician [facility] [place] Work Phone: Radiology Comment on above: Foot injury, left, i nitial encounter [S99.922A] Start: 09-23-2022 End: 09-23-2022 Patient encounter procedure Miladys Butt APRN.THERMITE BOMB LOADER Work Phone: [facility] Comment on above: Foot injury, left, i nitial encounter (Primary Dx) Start: 09-19-2022 End: 09-19-2022 Patient encounter procedure Jenna Jim APRN.THERMITE BOMB LOADER Work Phone: Neurology Comment on above: Syncope, unspecified syncope type (Primary Dx); Orthostatic hypotension Start: 09-05-2022 Telephone encounter Nadir Grady MD Work Phone: [facility] [place] Comment on above: low blood pressure Start: 08-30-2022 Refill Nadir valladares MD Work Phone: [facility] [place] Comment on above: Refill Request Start: 08-28-2022 Telephone encounter Nadir Grady MD Work Phone: [facility] [place] Comment on above: Patient Update Start: 08-22-2022 Telephone encounter Nadir Grady MD Work Phone: [facility] Comment on above: Patient Update Start: 08-21-2022 Telephone encounter Nadir Grady MD Work Phone: [facility] [place] Comment on above: Results Start: 08-21-2022 End: 08-21-2022 Patient encounter procedure Nadir Grady MD Work Phone: [facility] [place] Comment on above: Dizziness (Primary D x); Tremor; Hypotension, unspecified hypotension type; Panic disorder; Situational depression; Atypical chest pain; Iron deficiency anemia, unspecified iron deficiency anemia type Start: 08-06-2022 Refill Nadir valladares MD Work Phone: [facility] [place] Comment on above: Refill Request Start: 08-05-2022 End: 08-05-2022 Patient encounter procedure Mike Lucero MD Work Phone: Urology Comment on above: Bladder wall thicken ing (Primary Dx); Benign non-nodular prostatic hyperplasia without lower urinary tract symptoms Start: 07-30-2022 End: 07-30-2022 Patient encounter procedure Franny Catalan APRN.CNP Work Phone: [facility] [place] Comment on above: Type 2 diabetes ben itus with diabetic neuropathy, without long-term current use of insulin (HCC) (Primary Dx) Start: 07-29-2022 Telephone encounter Nadir Grady MD Work Phone: [facility] [place] Comment on above: Appointment Start: 07-12-2022 Telephone encounter Mike kim MD Work Phone: Urology Comment on above: Patient Update; Appo intment Start: 07-11-2022 Telephone encounter Martha pichardo PA-C Work Phone: [facility] [place] Comment on above: Results Start: 07-10-2022 Telephone encounter Martha pichardo PA-C Work Phone: [facility] [place] Comment on above: Results Consult Start: 07-09-2022 End: 07-09-2022 Subsequent hospital visit by physician [facility] Comment on above: Abnormal weight loss [R63.4] Start: 07-05-2022 Refill Martha perera PA-C Work Phone: [facility] [place] Comment on above: Refill Request Start: 07-02-2022 Telephone encounter Martha Rae pichardo PA-C Work Phone: Family Medicine [place] Comment on above: Results Start: 07-01-2022 End: 07-01-2022 Subsequent hospital visit by physician [facility] Work Phone: Radiology Comment on above: Abnormal weight loss [R63.4] Start: 06-27-2022 Telephone encounter Martha Rae pichardo PA-C Work Phone: [facility] [place] Comment on above: Results Start: 06-27-2022 End: 06-27-2022 Patient encounter procedure Thai Santiago MD Work Phone: General Surgery Comment on above: Anemia, unspecified type Start: 06-26-2022 Telephone encounter Martha pichardo PA-C Work Phone: [facility] [place] Comment on above: Results Start: 06-25-2022 Telephone encounter Nadir Grady MD Work Phone: [facility] [place] Comment on above: [facility] Start: 06-25-2022 End: 06-25-2022 Subsequent hospital visit by physician [facility] [place] Work Phone: Radiology Comment on above: Abnormal weight loss [R63.4] Start: 06-25-2022 End: 06-25-2022 Patient encounter procedure Martha DENISE-C Work Phone: [facility] [place] Comment on above: Abnormal weight loss (Primary Dx); Muscle mass; Intractable chronic post-traumatic headache; Neuropathy; Situational depression; Fatigue, unspecified type; Myalgia Start: 06-18-2022 Telephone encounter Nadir Grady MD Work Phone: [facility] [place] Comment on above: Medication Problem; Patient Update Start: 05-30-2022 Telephone encounter Rin ricardo APRN.CNP Work Phone: Neurology Comment on above: Medication Problem Start: 05-29-2022 Telephone encounter Nadir Grady MD Work Phone: [facility] Comment on above: requesting A1C resul ts Start: 05-28-2022 End: 05-28-2022 Emergency department patient visit Dr. Nadir Grady Work Phone: [facility]-Emergency Department Start: 05-28-2022 End: 05-28-2022 Patient encounter procedure Karin Hamm DATAPOWER DEVELOPER.THERMITE BOMB LOADER Work Phone: [facility] Comment on above: Injury of head, init ial encounter (Primary Dx); LOC (loss of consciousness) (HCC) Start: 05-28-2022 Telephone encounter Nadir Grady MD Work Phone: [facility] [place] Comment on above: Patient Update Start: 05-20-2022 Telephone encounter Nadir Grady MD Work Phone: [facility] [place] Comment on above: Medication concern; Medication Problem Start: 05-14-2022 Telephone encounter Martha pichardo PA-C Work Phone: [facility] [place] Comment on above: Results Start: 05-13-2022 End: 05-13-2022 Patient encounter procedure Martha Boston PA-C Work Phone: [facility] [place] Comment on above: Encounter for immuni zation (Primary Dx); Type 2 diabetes mellitus with diabetic neuropathy, without long-term current use of insulin (HCC); Essential hypertension, benign; Mixed hyperlipidemia; Coronary atherosclerosis due to lipid rich plaque; GERD without esophagitis; Carotid stenosis, asymptomatic, bilateral; Migraine variant; Adjustment disorder with depressed mood Start: 05-03-2022 Refill Nadir valladares MD Work Phone: [facility] [place] Comment on above: Refill Request Start: 05-01-2022 Telephone encounter Nadir Grady MD Work Phone: [facility] [place] Comment on above: Medication Question Start: 04-27-2022 ambulatory Nadir valladares MD Work Phone: [facility] [place] Comment on above: Discontinue amitript yline 150mg Start: 04-26-2022 Telephone encounter Nadir Grady MD Work Phone: [facility] Comment on above: Patient Update Start: 04-25-2022 End: 04-25-2022 Patient encounter procedure Rin Gagnon APRN.THERMITE BOMB LOADER Work Phone: Neurology Comment on above: Orthostatic hypotens ion (Primary Dx); Occipital neuralgia of right side; Neuropathy; Syncope and collapse Start: 04-24-2022 End: 04-24-[address] Nadir Grady Work Phone: [facility] Work Phone: Start: 04-24-2022 End: 04-24-[address] Nadir Grady Work Phone: [facility]-Medical Out Start: 04-19-2022 End: 04-19-[address] Nadir Grady Work Phone: [facility] Start: 04-19-2022 End: 04-19-2022 Office outpatient visit 25 minutes Martha Boston PA-C Work Phone: [facility] Comment on above: Situational depressi on (Primary Dx); Panic disorder Start: 04-17-2022 End: 04-17-[address] Nadir Grady Work Phone: [facility]-Laboratory Start: 04-15-2022 End: 04-15-[address] Nadir Grady Work Phone: [facility] Endocrinology Start: 04-08-2022 Telephone encounter Jenna Lazo APRN.THERMITE BOMB LOADER Work Phone: Neurology Comment on above: Patient Question Start: 04-03-2022 Refill Rashawn SIDHU RN.THERMITE BOMB LOADER Work Phone: [facility] Comment on above: Refill Request Start: 03-25-2022 Refill Nadir valladares MD Work Phone: [facility] Comment on above: Refill Request Start: 03-22-2022 End: 03-22-2022 Emergency department patient visit Dr. Nadir Grady Work Phone: [facility]-Emergency Department Start: 03-20-2022 Telephone encounter Jenna Lazo APRN.THERMITE BOMB LOADER Work Phone: Neurology Comment on above: Results - Ct Start: 03-19-2022 End: 03-19-2022 Subsequent hospital visit by physician Ct [facility] (I-Stat) Work Phone: Cat Scan Comment on above: Injury of head, init ial encounter [S09.90XA] Start: 03-18-2022 Telephone encounter Jenna Lazo APRN.THERMITE BOMB LOADER Work Phone: Neurology Comment on above: Patient Update (fall) Start: 02-26-2022 Refill Nadir valladares MD Work Phone: [facility] [place] Comment on above: Refill Request (SEE RX NOTE) Start: 02-19-2022 Telephone encounter Lemuel Troy MD Work Phone: [facility] [place] Comment on above: Question Start: 02-13-[address] Mar Grady Work Phone: [facility] Start: 02-11-2022 End: 02-11-2022 Admission to same day surgery center Dr. Nadir Grady Work Phone: [facility] Installer/Special Procedures Start: 02-11-2022 Non-patient / Non-visit Dr. Rajesh Grady Work Phone: [facility] Start: 02-07-2022 End: 02-07-2022 Patient encounter procedure Jenna Jim APRN.THERMITE BOMB LOADER Work Phone: Neurology Comment on above: Syncope, unspecified syncope type (Primary Dx); Orthostatic hypotension; Facial numbness; Injury of head, sequela; Chronic post-traumatic headache, not intractable Start: 02-04-2022 End: 02-04-[address] Nadir Grady Work Phone: [facility] Start: 01-31-2022 Non-patient / Non-visit Dr. Rajesh Grady Work Phone: [facility] Start: 01-30-2022 Refill Nadir valladares MD Work Phone: [facility] Comment on above: Refill Request Start: 01-24-2022 Telephone encounter Nadir Grady MD Work Phone: [facility] Comment on above: Release Of Medical R ecords Start: 01-18-2022 Non-patient / Non-visit Dr. Rajesh Grady Work Phone: [facility] Start: 01-18-2022 End: 01-18-[address] Nadir Grady Work Phone: [facility] Start: 01-17-2022 End: 01-17-[address] Nadir Grady Work Phone: [facility] Start: 01-04-2022 Chart abstracting Nadir pope MD Work Phone: [facility] Comment on above: outside cardiology Start: 01-04-2022 End: 01-04-[address] Nadir Grady Work Phone: [facility] Start: 01-01-2022 Non-patient / Non-visit Dr. Rajesh Grady Work Phone: [facility] Start: 12-30-2021 End: 12-30-[address] Nadir Grady Work Phone: [facility] Start: 12-29-2021 End: 12-29-2021 Emergency department patient visit Dr. Nadir Grady Work Phone: [facility] Start: 12-26-2021 End: 12-26-[address] Nadir Grady Work Phone: [facility] Start: 12-20-2021 End: 12-20-[address] Nadir Grady Work Phone: [facility] Start: 12-18-2021 End: 12-18-[address] Nadir Grady Work Phone: [facility] Start: 12-13-2021 Telephone encounter Karen castillo [facility] Work Phone: [facility] Comment on above: Medication Problem Start: 12-13-2021 End: 12-13-2021 Admission to same day surgery center Dr. Nadir Grady Work Phone: [facility] Installer/Special Procedures Start: 11-22-2021 Telephone encounter Nadir Grady MD Work Phone: [facility] Comment on above: Results Start: 11-12-2021 End: 11-12-[address] Nadir Grady Work Phone: [facility] Start: 11-08-2021 Patient encounter procedure Nadir Grady MD Work Phone: [facility] Work Phone: Start: 11-02-2021 End: 11-02-2021 Emergency department patient visit Dr. Nadir Grady Work Phone: [facility] Start: 10-18-2021 End: 10-18-[address] Nadir Grady Work Phone: [facility] Start: 10-16-2021 End: 10-16-2021 Emergency department patient visit Dr. Nadir Grady Work Phone: [facility] Start: 10-16-2021 Non-patient / Non-visit Dr. Rajesh Grady Work Phone: [facility] Start: 08-16-[address] Nadir Grady Work Phone: [facility] Start: 06-29-2021 Telephone encounter Ade hollins APRN.THERMITE BOMB LOADER Work Phone: [facility] Comment on above: Results Start: 06-27-2021 End: 06-27-2021 Subsequent hospital visit by physician Xr [facility] Work Phone: Radiology Comment on above: SOB (shortness of br eath) [R06.02] Start: 01-09-2021 Ophthalmic examinati on and evaluation Nadir Grady MD Work Phone: [facility] Start: 10-09-2020 End: 10-09-2020 Subsequent hospital visit by physician Xr [facility] [place] Work Phone: Radiology Comment on above: Acute pain of right shoulder [M25.511] Start: 09-08-2020 End: 09-08-2020 Subsequent hospital visit by physician Xr [facility] [place] Work Phone: Radiology Comment on above: Rib pain on left eulalio e [R07.81] Start: 09-10-2017 End: 09-10-2017 Evaluation and management of inpatient [facility]ENE [facility]URN Facility:[facility] Start: 10-03-2016 End: 04-12-2020 Patient encounter status Karin Hamm DATAPOWER DEVELOPER.THERMITE BOMB LOADER Work Phone: [facility] Procedures Date Procedure Procedure Detail Performing Clinician [...] 2.25 x 16 mm Synergy MR 01/20/2017; TGG-CGB-Vzyueh LCx w/ 2.25 x 08 mm Synergy MR Stent 05/10/2020; BXI-WIX-Pwkw LCx w/ 2.5 x 12 mm Synergy Stent 11/20/20; PCI-RODDY-Mid RCA w/ 3.0 x 9 mm Orsiro Stent and POBA- distal RCA 04/26/21; TNJ-SEA-RSR-Prox LCx w/ 2.5 x 9 mm Orsiro Stent 07/23/21, PTCA/RODDY Prox and Mid RCA using Drake and RODDY distal RCA using Drake [place] 3.0x12 mm, 2.5x12 mm and 2.5x8 mm 10/10/23; 3.5 X 12 Drake [place] RODDY to Proximal RCA 12. Start: 07-28-2024 X-ray of chest, PA and lateral views Dr. Nadir Grady MD Work Phone: Start: 07-28-2024 Evaluation of diagnostic study results Dr. Nadir Grady MD Work Phone: Start: 07-24-2024 Radex wrist complete minimum 3 views Bridget Gwendolyn DATAPOWER DEVELOPER.THERMITE BOMB LOADER Work Phone: Start: 07-20-2024 Adult depression screening assessment Martha Boston PA-C Work Phone: Start: 12-22-2023 Radex forearm 2 views Karin Hansel DATAPOWER DEVELOPER.THERMITE BOMB LOADER Work Phone: Start: 12-04-2023 Cardiovascular stress test [...] foot complete minimum 3 views Miladys Butt APRN.THERMITE BOMB LOADER Work Phone: Start: 08-05-2022 Urnls dip stick/tablet rgnt auto w/o microscopy Mike Lucero MD Work Phone: Start: 07-09-2022 Ct abdomen & pelvis w/contrast material Martha Boston PA-C Work Phone: Start: 07-09-2022 Ct thorax w/contrast material Marthaej paganon PA-C Work Phone: Start: 07-01-2022 Us abdominal real time w/image limited Martha Boston PA-C Work Phone: Start: 06-25-2022 Radiologic exam chest 2 views Martha Ro binson PA-C Work Phone: Start: 05-28-2022 Plain chest [...] Start: 03-22-2022 X-ray of lumbosacral spine Dr. Naidr vidal Work Phone: Start: 03-22-2022 CT of head without contrast Dr. Nadir Grady Work Phone: Start: 03-19-2022 Ct head/brain w/o contrast material Jenna Jim DATAPOWER DEVELOPER.MIGEL Work Phone: Start: 02-04-2022 Plain chest X-ray [...] 10-16-2021 CT of head without contrast Dr. Nadri Grady Work Phone: Start: 10-16-2021 CT cervical spine without contrast Dr. Devora Grady Work Phone: Start: 07-23-2021 History of placement of stent for coronary artery disease History of coronary artery stent placement Dr. Nadir Grady Work Phone: Start: 06-27-2021 Radiologic exam chest 2 views Ade hollins DATAPOWER DEVELOPER.THERMITE BOMB LOADER Work Phone: Start: 10-09-2020 Radex shoulder complete minimum 2 views Juan Luis Lynn DATAPOWER DEVELOPER.THERMITE BOMB LOADER, DNP Work Phone: Start: 09-08-2020 Radiologic exam chest 2 views Bruce obregon DATAPOWER DEVELOPER.THERMITE BOMB LOADER Work Phone: Start: 02-07-2017 End: 02-10-2017 *Hepatic [...] Jd Kern MD Start: 01-08-2017 End: 02-07-2017 OBSTETRIC ASSISTANT Jd Kern MD Start: 01-08-2017 End: 01-16-2017 [...] Activity Detail Author Start: 10-14-2032 Colonoscopy COLONOSCOPY [facility] Start: 10-14-2032 COLORECTAL CANCER SCREENING COLORECTAL CANCER SCREENING [facility] Start: 10-14-2032 Screening for malign ant neoplasm of colon [facility] Start: 03-01-2031 Urine microalbumin profile [facility] Start: 10-18-2029 Urine microalbumin profile DTA P,TDAP,TD (3 - Td or Tdap) [facility] Start: 11-02-2026 PROSTATE CANCER SCRE ENING DISCUSSION PROSTATE CANCER SCREENING DISCUSSION [facility] Start: 01-18-2026 Annual PCP Team Market Investigator bernarda Disease Visit Annual PCP Team Chronic Disease Visit [facility] Start: 01-18-2026 BP Controlled (<130/80) BP Controlle d (<130/80) [facility] Start: 01-18-2026 Diabetic foot examination Diabetic F oot Exam [facility] Start: 01-18-2026 Hepatitis B screening Urine Albumin:Creatinine Ratio [facility] Start: 01-18-2026 Hepatitis B surface antibody level LDL Cholesterol [facility] Start: 10-25-2025 Glaucoma screening Dilated Retinal E xam [facility] Start: 10-07-2025 Annual PCP Team Market Investigator bernarda Disease Visit Annual PCP Team Chronic Disease Visit [facility] Start: 10-07-2025 BP Controlled (<130/80) BP Controlle d (<130/80) [facility] Start: 09-06-2025 Annual PCP Team Market Investigator bernarda Disease Visit Annual PCP Team Chronic Disease Visit [facility] Start: 09-06-2025 BP Controlled (<130/80) BP Controlle d (<130/80) [facility] Start: 08-12-2025 BP Controlled (<130/80) BP Controlle d (<130/80) [facility] Start: 07-26-2025 End: 07-26-2025 Patient encounter procedure 07/26/2025 8:00 AM EST Office Visit [facility] [place] [address] [facility] [place] [id number] Nadir Grayd MD [address] [place] [address] [place] [address] Medicare Wellness [facility] [place] Comment on above: Medicare Wellness Start: 07-24-2025 BP Controlled (<130/80) BP Controlle d (<130/80) [facility] Start: 07-21-2025 Hemoglobin A1c measurement HbA1C [facility] Start: 07-20-2025 Annual PCP Team Market Investigator bernarda Disease Visit Annual PCP Team Chronic Disease Visit [facility] Start: 07-20-2025 Anxiety Screening Anxiety Screening [facility] Start: 07-20-2025 Covid-19 Vaccine ( season) Covid-19 Vaccine () [facility] Comment on above: Postponed from 05/02 (Declined at this time) Start: 07-20-2025 Depression Screening Depression Scre ening [facility] Start: 07-20-2025 Diabetic foot examination Diabetic F oot Exam [facility] Start: 07-20-2025 Hepatitis B surface antibody level LDL Cholesterol [facility] Start: 05-02-2025 Influenza vaccination Influenza Vacc ine (#1) [facility] Start: 03-17-2025 End: 03-17-2025 Patient encounter procedure Neurology Comment on above: 3 month follow up Start: 03-05-2025 [facility] Start: 03-05-2025 [facility] Start: 02-22-2025 Evaluation of diagno stic study results [facility] Start: 01-18-2025 End: 01-18-2025 Patient encounter procedure [facility] [place] Comment on above: 6 month f/u Start: 12-21-2024 BP Controlled (<130/80) BP Controlle d (<130/80) [facility] Start: 12-13-2024 End: 12-13-2024 Patient encounter procedure 12/13/2024 10:00 AM EDT Office Visit Neurology [address] [place] [address] Molly Houser, DATAPOWER DEVELOPER.THERMITE BOMB LOADER [address] [place] [address] sleep study follow up Neurology Comment on above: sleep study follow u p Start: 10-22-2024 End: 10-22-2024 Patient encounter procedure Neurology Comment on above: Hypersomnolence [G47 .10] NO PAP, no sleep xi dy Start: 10-20-2024 Hemoglobin A1c measurement HbA1C [facility] Start: 09-06-2024 End: 01-06-2025 Patient encounter procedure 09/06/2024 2:40 PM EST Office Visit [facility] [place] [address] [place] [address] Nadir Grady MD [address] [place] [address] 4 week f/u weight check and sleep issues [facility] Comment on above: 4 week f/u weight ch casie and sleep issues Start: 09-03-2024 BP Controlled (<130/80) BP Controlle d (<130/80) [facility] Start: 09-02-2024 Glaucoma screening Dilated Retinal E xam [facility] Start: 09-01-2024 Advance Directive Discussion Advance Directive Discussion [facility] Start: 09-01-2024 Medicare Advantage A nnual Wellness Visit Medicare Advantage Annual Wellness Visit [facility] Start: 08-27-2024 [facility] Start: 08-27-2024 Enteric precautions [facility] Start: 08-27-2024 [facility] Start: 08-17-2024 Patient referral [facility] Work Phone: Start: 08-16-2024 Cardiac rehabilitati on - phase 1 [facility] Start: 08-16-2024 Cardiac rehabilitati on - phase 2 [facility] Start: 07-21-2024 End: 10-20-2024 ALK PHOS ISOENZYM BL ALK PHOS ISOENZYM BL Lab Routine Elevated alkaline phosphatase level Expected: 07/21/2024, Expires: 10/20/2024 [facility] Work Phone: Comment on above: Expected: 07/21/2024 , Expires: 10/20/2024 Start: 07-21-2024 End: 10-20-2024 Gamma glutamyl transferase [Enzymatic activity/volume] in Serum or Plasma [facility] Lab Routine Elevated alkaline phosphatase level Expected: 07/21/2024, Expires: 10/20/2024 [facility] Comment on above: Expected: 07/21/2024 , Expires: 10/20/2024 Start: 07-20-2024 End: 10-19-2024 CBC W Auto Differential panel - Blood [facility] Comment on above: Expected: 07/20/2024 , Expires: 10/19/2024 Start: 07-20-2024 End: 10-19-2024 Comprehensive metabolic 2000 panel - Serum or Plasma [facility] Comment on above: Expected: 07/20/2024 , Expires: 10/19/2024 Start: 07-20-2024 End: 10-19-2024 Hemoglobin A1c in Blood [facility] Work Phone: Comment on above: Expected: 07/20/2024 , Expires: 10/19/2024 Start: 07-20-2024 End: 10-19-2024 Iron and Iron binding capacity panel - Serum or Plasma [facility] Comment on above: Expected: 07/20/2024 , Expires: 10/19/2024 Start: 07-20-2024 End: 10-19-2024 LIPID PANEL, NONFASTING [facility] Comment on above: Expected: 07/20/2024 , Expires: 10/19/2024 Start: 07-20-2024 End: 10-19-2024 Microalbumin/Creatinine [Mass Ratio] in Urine ALBUMIN/CREATININE RATIO, URINE Lab Routine Type 2 diabetes mellitus with diabetic neuropathy, without long-term current use of insulin (HCC) Uncontrolled type 2 diabetes mellitus with hyperglycemia (HCC) Expected: 07/20/2024, Expires: 10/19/2024 [facility] Comment on above: Expected: 07/20/2024 , Expires: 10/19/2024 Start: 07-20-2024 End: 10-19-2024 Thyrotropin [Units/volume] in Serum or Plasma [facility] Comment on above: Expected: 07/20/2024 , Expires: 10/19/2024 Start: 07-20-2024 End: 10-19-2024 Urinalysis complete panel - Urine URINALYSIS, WITH MICROSCOPIC Lab Routine Type 2 diabetes mellitus with diabetic neuropathy, without long-term current use of insulin (HCC) Uncontrolled type 2 diabetes mellitus with hyperglycemia (HCC) Expected: 07/20/2024, Expires: 10/19/2024 [facility] Comment on above: Expected: 07/20/2024 , Expires: 10/19/2024 Start: 06-17-2024 Annual PCP Team Market Investigator bernarda Disease Visit Annual PCP Team Chronic Disease Visit [facility] Start: 06-17-2024 BP Controlled (<130/80) BP Controlle d (<130/80) [facility] Start: 06-17-2024 Hepatitis B surface antibody level LDL Cholesterol [facility] Start: 05-02-2024 Covid-19 Vaccine ( season) Covid-19 Vaccine () [facility] Start: 05-02-2024 Covid-19 Vaccine () Covid-19 Vaccine () [facility] Start: 05-02-2024 Influenza vaccination Influenza Vacc ine (#1) [facility] Start: 02-18-2024 BP CONTROLLED (<130/80) BP CONTROLLE D (<130/80) [facility] Start: 12-17-2023 Hemoglobin A1c measurement HbA1C [facility] Start: 12-17-2023 Hemoglobin A1c/Hemoglobin.total in Blood HbA1C [facility] Start: 12-04-2023 Patient discharge [facility] Start: 12-03-2023 Ambulation without limitation [facility] Start: 12-03-2023 Assessment of risk o f venous thromboembolism [facility] Start: 12-03-2023 Incentive spirometry [facility] Start: 12-03-2023 Insertion of cathete r into peripheral vein [facility] Start: 12-03-2023 Measuring intake and output [facility] Start: 12-03-2023 Oxygen therapy [facility] Start: 12-03-2023 Providing care accor ding to standard [facility] Start: 12-03-2023 Provision of activit y privileges [facility] Start: 12-03-2023 Referral to occupati onal therapist [facility] Start: 12-03-2023 Referral to service [facility] Start: 12-03-2023 Tobacco use cessatio n education [facility] Start: 12-03-2023 [facility] Start: 12-03-2023 Following clinical p athway protocol [facility] Start: 12-03-2023 Verification routine [facility] Start: 12-03-2023 Care regimes management [facility] Start: 12-03-2023 Notification of physician [facility] Start: 12-03-2023 [facility] Start: 12-03-2023 Urinalysis complete panel - Urine [facility] Start: 12-03-2023 Hospital admission, emergency, from emergency room, medical nature [facility] Start: 12-03-2023 Admission procedure [facility] Start: 12-03-2023 [facility] Start: 11-29-2023 ANNUAL PCP TEAM MEDIA MONITOR BERNARDA DISEASE VISIT ANNUAL PCP TEAM CHRONIC DISEASE VISIT [facility] Start: 11-29-2023 Hepatitis B screening URINE ALBUMIN:CREATININE RATIO [facility] Start: 11-29-2023 Hepatitis B surface antibody level LDL CHOLESTEROL [facility] Start: 11-22-2023 BP CONTROLLED (<130/80) BP CONTROLLE D (<130/80) [facility] Start: 11-11-2023 Patient referral [facility] Work Phone: Start: 10-29-2023 BP CONTROLLED (<130/80) BP CONTROLLE D (<130/80) [facility] Start: 10-23-2023 [facility] Start: 10-15-2023 [facility] Start: 10-15-2023 [facility] Start: 10-14-2023 Colonoscopy COLONOSCOPY [facility] Start: 10-13-2023 Patient referral [facility] Work Phone: Start: 10-11-2023 Patient discharge [facility] Start: 10-10-2023 Ambulation without limitation [facility] Start: 10-10-2023 Pulse taking [facility] Start: 10-10-2023 Cardiac monitoring [facility] Start: 10-10-2023 Cardiac rehabilitati on - phase 1 [facility] Start: 10-10-2023 Cardiac rehabilitati on - phase 2 [facility] Start: 10-10-2023 Notification of physician [facility] Start: 10-10-2023 Patient discharge [facility] Start: 10-10-2023 Taking patient vital signs [facility] Start: 10-10-2023 Vascular disease ris k assessment [facility] Start: 10-10-2023 Vital signs measurements [facility] Start: 10-10-2023 End: 10-10-2023 [facility] Start: 10-10-2023 Application of intermittent pneumatic compression device [facility] Start: 10-10-2023 End: 10-10-2023 Care planning and problem solving actions [facility] Start: 10-09-2023 Following clinical p athway protocol [facility] Start: 10-09-2023 Ambulation without limitation [facility] Start: 10-09-2023 Assessment of risk o f venous thromboembolism [facility] Start: 10-09-2023 Care regimes management [facility] Start: 10-09-2023 Insertion of cathete r into peripheral vein [facility] Start: 10-09-2023 Measuring intake and output [facility] Start: 10-09-2023 Notification of physician [facility] Start: 10-09-2023 Providing care accor ding to standard [facility] Start: 10-09-2023 Referral to hostler helper [facility] Start: 10-09-2023 Referral to occupati onal therapist [facility] Start: 10-09-2023 Referral to service [facility] Start: 10-09-2023 Tobacco use cessatio n education [facility] Start: 10-09-2023 [facility] Start: 10-09-2023 Verification routine [facility] Start: 10-09-2023 Hospital admission, emergency, from emergency room, medical nature [facility] Start: 10-09-2023 Admission procedure [facility] Start: 10-09-2023 End: 10-09-2023 [facility] Start: 10-05-2023 BP CONTROLLED (<130/80) BP CONTROLLE D (<130/80) [facility] Start: 10-04-2023 ANNUAL PCP TEAM MEDIA MONITOR BERNARDA DISEASE VISIT ANNUAL PCP TEAM CHRONIC DISEASE VISIT [facility] Start: 09-01-2023 Advance Directive Discussion Advance Directive Discussion [facility] Start: 09-01-2023 Behavioral Health Screening Behavioral Health Screening [facility] Start: 09-01-2023 Depression Assessment Depression Ass essment [facility] Start: 08-21-2023 ANNUAL PCP TEAM MEDIA MONITOR BERNARDA DISEASE VISIT ANNUAL PCP TEAM CHRONIC DISEASE VISIT [facility] Start: 08-21-2023 BP CONTROLLED (<130/80) BP CONTROLLE D (<130/80) [facility] Start: 08-21-2023 COVID-19 VACCINE (2 - Pfizer series) COVID-19 VACCINE (2 - Pfizer series) [facility] Comment on above: Postponed from 09/06 (Declined at this time) Postponed from 10/11 (Declined at this time) Start: 07-30-2023 ANNUAL PCP TEAM MEDIA MONITOR BERNARDA DISEASE VISIT ANNUAL PCP TEAM CHRONIC DISEASE VISIT [facility] Start: 06-27-2023 BP CONTROLLED (<130/80) BP CONTROLLE D (<130/80) [facility] Start: 06-25-2023 ANNUAL PCP TEAM MEDIA MONITOR BERNARDA DISEASE VISIT ANNUAL PCP TEAM CHRONIC DISEASE VISIT [facility] Start: 06-25-2023 BP CONTROLLED (<130/80) BP CONTROLLE D (<130/80) [facility] Start: 05-31-2023 Hemoglobin A1c/Hemoglobin.total in Blood HBA1C [facility] Start: 05-13-2023 3 comp foot exam completed DIABETIC FOOT EXAM [facility] Start: 05-13-2023 ANNUAL PCP TEAM MEDIA MONITOR BERNARDA DISEASE VISIT ANNUAL PCP TEAM CHRONIC DISEASE VISIT [facility] Start: 05-13-2023 Diabetic foot examination Diabetic F oot Exam [facility] Start: 05-02-2023 Covid-19 Vaccine ( season) Covid-19 Vaccine ( season) [facility] Start: 05-02-2023 Influenza vaccination INFLUENZA (#1) [facility] Start: 04-25-2023 BP CONTROLLED (<130/80) BP CONTROLLE D (<130/80) [facility] Start: 04-19-2023 ANNUAL PCP TEAM MEDIA MONITOR BERNARDA DISEASE VISIT ANNUAL PCP TEAM CHRONIC DISEASE VISIT [facility] Start: 04-19-2023 BP CONTROLLED (<130/80) BP CONTROLLE D (<130/80) [facility] Start: 04-17-2023 Hepatitis B surface antibody level LDL CHOLESTEROL [facility] Start: 04-01-2023 End: 06-01-2023 Fungus identified in Unspecified specimen by Culture FUNGAL CULTURE Microbiology Routine Mouth sores Expected: 04/01/2023, Expires: 06/01/2023 [facility] Work Phone: Comment on above: Expected: 04/01/2023 , Expires: 06/01/2023 Start: 02-07-2023 BP CONTROLLED (<130/80) BP CONTROLLE D (<130/80) [facility] Start: 11-29-2022 End: 2023 Prostate Specific Ag Free [Mass/volume] in Serum or Plasma PSA FREE Lab Routine Elevated PSA Expected: 11/29/2022, Expires: 2023 [facility] Work Phone: Comment on above: Expected: 11/29/2022 , Expires: 2023 Start: 11-28-2022 End: 01-28-2023 ALBUMIN/CREAT RATIO RND UR [facility] Work Phone: Comment on above: Expected: 11/28/2022 , Expires: 01/28/2023 Start: 11-28-2022 End: 01-28-2023 Hemoglobin A1c in Blood [facility] Work Phone: Comment on above: Expected: 11/28/2022 , Expires: 01/28/2023 Start: 11-10-2022 Hemoglobin A1c/Hemoglobin.total in Blood HBA1C [facility] Start: 11-08-2022 ANNUAL PCP TEAM MEDIA MONITOR BERNARDA DISEASE VISIT ANNUAL PCP TEAM CHRONIC DISEASE VISIT [facility] Start: 11-08-2022 BP CONTROLLED (<130/80) BP CONTROLLE D (<130/80) [facility] Start: 11-02-2022 Hepatitis B screening URINE ALBUMIN:CREATININE RATIO [facility] Start: 11-02-2022 Hepatitis B surface antibody level LDL CHOLESTEROL [facility] Start: 09-01-2022 ADVANCE DIRECTIVE DISCUSSION ADVANCE DIRECTIVE DISCUSSION [facility] Start: 09-01-2022 DEPRESSION ASSESSMENT DEPRESSION ASS ESSMENT [facility] Start: 07-28-2022 End: 09-27-2022 CBC W Auto Differential panel - Blood CBC + DIFF Lab Routine Iron deficiency anemia, unspecified iron deficiency anemia type Expected: 07/28/2022, Expires: 09/27/2022 [facility] Work Phone: Comment on above: Expected: 07/28/2022 , Expires: 09/27/2022 Start: 07-28-2022 End: 09-27-2022 Iron and Iron binding capacity panel - Serum or Plasma IRON + TIBC Lab Routine Iron deficiency anemia, unspecified iron deficiency anemia type Expected: 07/28/2022, Expires: 09/27/2022 [facility] Work Phone: Comment on above: Expected: 07/28/2022 , Expires: 09/27/2022 Start: 07-02-2022 End: 09-01-2022 CREATININE BLD CREATININE BLD Lab Routine Abnormal weight loss Expected: 07/02/2022, Expires: 09/01/2022 [facility] Work Phone: Comment on above: Expected: 07/02/2022 , Expires: 09/01/2022 Start: 06-26-2022 End: 08-26-2022 Ferritin [Mass/volume] in Serum or Plasma [facility] Work Phone: Comment on above: Expected: 06/26/2022 , Expires: 08/26/2022 Start: 06-26-2022 End: 08-26-2022 Glucose [Mass/volume] in Serum or Plasma [facility] Work Phone: Comment on above: Expected: 06/26/2022 , Expires: 08/26/2022 Start: 06-26-2022 End: 08-26-2022 Iron and Iron binding capacity panel - Serum or Plasma [facility] Work Phone: Comment on above: Expected: 06/26/2022 , Expires: 08/26/2022 Start: 06-25-2022 End: 08-25-2022 25-hydroxyvitamin D3 [Mass/volume] in Serum or Plasma [facility] Work Phone: Comment on above: Expected: 06/25/2022 , Expires: 08/25/2022 Start: 06-25-2022 End: 08-25-2022 CBC W Auto Differential panel - Blood [facility] Work Phone: Comment on above: Expected: 06/25/2022 , Expires: 08/25/2022 Start: 06-25-2022 End: 08-25-2022 Cobalamin (Vitamin B12) [Mass/volume] in Serum or Plasma [facility] Work Phone: Comment on above: Expected: 06/25/2022 , Expires: 08/25/2022 Start: 06-25-2022 End: 08-25-2022 Comprehensive metabolic 2000 panel - Serum or Plasma [facility] Work Phone: Comment on above: Expected: 06/25/2022 , Expires: 08/25/2022 Start: 06-25-2022 End: 08-25-2022 Creatine kinase [Enzymatic activity/volume] in Serum or Plasma [facility] Work Phone: Comment on above: Expected: 06/25/2022 , Expires: 08/25/2022 Start: 06-25-2022 End: 08-25-2022 Folate [Mass/volume] in Serum or Plasma [facility] Work Phone: Comment on above: Expected: 06/25/2022 , Expires: 08/25/2022 Start: 06-25-2022 End: 08-25-2022 Testosterone [Mass/volume] in Serum or Plasma [facility] Work Phone: Comment on above: Expected: 06/25/2022 , Expires: 08/25/2022 Start: 06-25-2022 End: 08-25-2022 Thyrotropin [Units/volume] in Serum or Plasma [facility] Work Phone: Comment on above: Expected: 06/25/2022 , Expires: 08/25/2022 Start: 06-25-2022 End: 08-25-2022 Thyroxine (T4) free [Mass/volume] in Serum or Plasma [facility] Work Phone: Comment on above: Expected: 06/25/2022 , Expires: 08/25/2022 Start: 05-28-2022 [facility] Work Phone: Start: 05-14-2022 End: 07-14-2022 Sodium [Moles/volume] in Serum or Plasma SODIUM/NA BLD Lab Routine Hyponatremia Expected: 05/14/2022, Expires: 07/14/2022 [facility] Work Phone: Comment on above: Expected: 05/14/2022 , Expires: 07/14/2022 Start: 05-11-2022 Hemoglobin A1c/Hemoglobin.total in Blood HBA1C [facility] Start: 05-02-2022 Influenza vaccination INFLUENZA (#1) [facility] Start: 02-14-2022 3 comp foot exam completed DIABETIC FOOT EXAM [facility] Start: 02-06-2022 PNEUMOCOCCAL: 65+ (3 - PPSV23 or PCV20) PNEUMOCOCCAL: 65+ (3 - PPSV23 or PCV20) [facility] Start: 02-06-2022 PNEUMOVAX AGE 65 AND OVER WITH 5YR LOOKBACK (#1) PNEUMOVAX AGE 65 AND OVER WITH 5YR LOOKBACK (#1) [facility] Start: 01-09-2022 Hepatitis C antibody , confirmatory test DILATED RETINAL EXAM [facility] Start: 01-01-2022 Patient referral [facility] Work Phone: Start: 12-06-2021 BP CONTROLLED (<130/80) BP CONTROLLE D (<130/80) [facility] Start: 09-06-2021 COVID-19 VACCINE (2 - Pfizer 3-dose series) COVID-19 VACCINE (2 - Pfizer 3-dose series) [facility] Start: 09-06-2021 COVID-19 VACCINE (2 - Pfizer series) COVID-19 VACCINE (2 - Pfizer series) [facility] Start: 09-01-2021 DEPRESSION ASSESSMENT DEPRESSION ASS ESSMENT [facility] Start: 04-19-2020 FECAL OCCULT BLOOD FECAL OCCULT BLOO D [facility] Start: 04-19-2020 Screening for malign ant neoplasm of colon Fecal Occult Blood [facility] Start: 08-22-2017 End: 08-22-2017 Appointment Appointment [facility] Work Phone: Start: 08-12-2017 End: 02-13-2017 *Hepatic Function Panel *Hepatic Function Panel [facility] Work Phone: Start: 08-12-2017 End: 02-13-2017 Lipid panel [AGGREGATE] *Lipid Profile CC PCP [facility] Work Phone: Start: 04-24-2017 End: 04-24-2017 Appointment Appointment [email or web address] Work Phone: Start: 04-24-2017 End: 04-24-2017 Appointment Appointment [email or web address] Work Phone: Start: 02-07-2017 End: 02-07-2017 Appointment Appointment [email or web address] Work Phone: Start: 02-07-2017 End: 02-10-2017 *Hepatic Function Panel *Hepatic Function Panel [employer] Work Phone: Start: 02-07-2017 End: 02-07-2017 Cardiac Rehab [facility] [id number] [place], [address] [facility] Work Phone: Start: 02-07-2017 End: 02-07-2017 Follow Up Appt 6 months Follow Up Appt 6 months [employer] Work Phone: Start: 02-07-2017 End: 02-10-2017 Lipid panel [AGGREGATE] *Lipid Profile CC PCP [facility] Work Phone: Start: 02-07-2017 End: 02-07-2017 MMM MMM [email or web address] Work Phone: Start: 01-08-2017 End: 01-08-2017 Appointment Appointment [email or web address] Work Phone: Start: 01-08-2017 End: 01-08-2017 *BMP *BMP [facility] Work Phone: Start: 01-08-2017 End: 01-08-2017 CBC W Auto Differential panel - Blood *CBC without Diff [facility] Work Phone: Start: 01-08-2017 End: 02-10-2017 Chest x-ray X-Ray, Chest, PA & Lateral [facility] Work Phone: Start: 01-08-2017 End: 01-08-2017 Coagulation factor induced.INR assay in platelet poor plasma *PT/INR [facility] Work Phone: Start: 01-08-2017 End: 02-07-2017 OBSTETRIC ASSISTANT OBSTETRIC ASSISTANT [facility] Work Phone: Start: 01-08-2017 End: 01-08-2017 Echocardiography Echocardiogram (complete) [facility] Work Phone: Start: 01-08-2017 End: 02-10-2017 Electrocardiogram, complete EKG (In office) [facility] Work Phone: Start: 01-08-2017 End: 02-07-2017 Follow Up Appt 3 months Follow Up Appt 3 months [facility] Work Phone: Start: 01-08-2017 End: 01-15-2017 Left Heart Cath Left Heart Cath [facility] Work Phone: Start: 2013 Hepatitis B Vaccine (1 of 3 - Risk 3-dose series) Hepatitis B Vaccine (1 of 3 - Risk 3-dose series) [facility] Start: 1998 COLOGUARD (FIT-DNA) COLOGUARD (FIT-D NA) [facility] Start: 1998 Colonoscopy COLONOSCOPY [facility] Start: [address] COLONOGRAPHY [facility] Start: 1998 Screening for malign ant neoplasm of colon [facility] Start: 1998 SIGMOIDOSCOPY SIGMOIDOSCOPY [facility] Start: 1971 Anxiety Screening Anxiety Screening [facility] Start: 1971 Depression Screening Depression Scre ening [facility] Start: 1959 PNEUMOCOCCAL: 65+ (1 - PCV) PNEUMOCOCCAL: 65+ (1 - PCV) [facility] Ankle brachial press ure index [facility] Work Phone: [facility] End: 06-27-2023 COLONOSCOPY DIAGNOSTIC COLONOSCOPY DIAGNOSTIC Endoscopy Routine Anemia, unspecified type 1 Occurrences starting 06/27/2022 until 06/27/2023 [facility] Work Phone: Comment on above: 1 Occurrences starti ng 06/27/2022 until 06/27/2023 End: 12-01-2023 Ct abdomen & pelvis w/contrast material CT ABD/PEL W IVCON Radiology Routine Abnormal weight loss 1 Occurrences starting 07/02/2022 until 08/01/2023 [facility] Work Phone: Comment on above: 1 Occurrences starti ng 07/02/2022 until 08/01/2023 End: 08-01-2023 CT CHEST W IVCON CT CHEST W IVCON Radiology Routine Abnormal weight loss 1 Occurrences starting 07/02/2022 until 08/01/2023 [facility] Work Phone: Comment on above: 1 Occurrences starti ng 07/02/2022 until 08/01/2023 Doppler ultrasonogra phy of aorta [facility] End: 06-27-2023 EGD DIAGNOSTIC EGD DIAGNOSTIC Endoscopy Routine Anemia, unspecified type 1 Occurrences starting 06/27/2022 until 06/27/2023 [facility] Work Phone: Comment on above: 1 Occurrences starti ng 06/27/2022 until 06/27/2023 Patient Education [facility] Work Phone: Patient referral [facility] Work Phone: End: 10-22-2025 Polysomnogram POLYSOMNOGRAM (PSG) Procedures Routine Dream enactment behavior Snores RLS (restless legs syndrome) Non-restorative sleep Excessive daytime sleepiness Chronic insomnia 1 Occurrences starting 10/22/2024 until 10/22/2025 [facility] Work Phone: Comment on above: 1 Occurrences starti ng 10/22/2024 until 10/22/2025 SURGICAL PATHOLOGY [facility] Work Phone: Comment on above: Release Upon Orderin g for 1 Occurrences starting 10/14/2022, 1 completed End: 07-25-2023 Us abdominal real time w/image limited US ABD RT UPPER QUADRANT Radiology Routine Abnormal weight loss 1 Occurrences starting 06/25/2022 until 07/25/2023 [facility] Work Phone: Comment on above: 1 Occurrences starti ng 06/25/2022 until 07/25/2023 US Carotid arteries [facility] Work Phone: US Carotid arteries [facility] Immunizations Immunization Date Immunization Notes Care Provider [facility] 05-19-2024 Seasonal trivalent influenza vaccine, adjuvanted, preservative free Martha Boston PA-C Work Phone: [facility] 05-19-2024 influenza virus vacc ine, unspecified formulation Molly Houser APRN.CNP Work Phone: [facility] 05-15-2023 respiratory syncytia l virus (RSV) vaccine, bivalent (ABRYSVO) Nadir Grady MD Work Phone: [facility] 05-15-2023 Seasonal trivalent influenza vaccine, adjuvanted, preservative free Nadir Grady MD Work Phone: [facility] 05-15-2023 influenza virus vacc ine, unspecified formulation Aydeeyaima Smithvin PEREZ [facility] 05-13-2022 influenza, high-dose , quadrivalent vaccine (FLUZONE HIGH DOSE QUADRIVALENT) Martha Boston PA-C Work Phone: [facility] 05-13-2022 pneumococcal (PCV20) vaccine, 20 valent (PREVNAR 20) Martha Boston PA-C Work Phone: [facility] 05-13-2022 pneumococcal Conjuga te, unspecified formulation Martha Boston PA-C Work Phone: [facility] Work Phone: 08-16-2021 Covid (Pfizer) Dr. Nadir vidal Work Phone: [facility] 07-21-2021 influenza, injectabl e, quadrivalent, preservative free Dr. Nadir Grady Work Phone: [facility] 07-21-2021 influenza, seasonal, injectable Dr. Nadir Grady Work Phone: [facility] Work Phone: 03-01-2021 tetanus toxoid, redu radha diphtheria toxoid, and acellular pertussis vaccine, adsorbed Dr. Nadir Grady Work Phone: [facility] 08-10-2020 zoster vaccine recombinant Nadir Grady MD Work Phone: [facility] 04-17-2020 influenza, high dose seasonal, preservative-free Nadir Grady MD Work Phone: [facility] 04-17-2020 zoster vaccine recombinant Nadir Grady MD Work Phone: [facility] 10-18-2019 pneumococcal conjuga te vaccine, 13 valent Nadir Grady MD Work Phone: [facility] 10-18-2019 tetanus toxoid, redu radha diphtheria toxoid, and acellular pertussis vaccine, adsorbed Nadir Grady MD Work Phone: [facility] 06-17-2019 influenza, high dose seasonal, preservative-free Nadir Grady MD Work Phone: [facility] 06-12-2018 influenza, high dose seasonal, preservative-free Nadir Grady MD Work Phone: [facility] 06-12-2018 pneumococcal conjuga te vaccine, 13 valent Nadir Grady MD Work Phone: [facility] 05-04-2017 influenza, injectabl e, quadrivalent, contains preservative Nadir Grady MD Work Phone: [facility] Work Phone: 02-06-2017 pneumococcal polysaccharide vaccine, 23 valent Nadir Grady MD Work Phone: [facility] 06-18-2016 influenza virus vacc ine, unspecified formulation Nadir Grady MD Work Phone: [facility] Work Phone: 06-01-2016 influenza, injectabl e, quadrivalent, preservative free Dr. Nadir Grady Work Phone: [facility] 06-01-2016 influenza, seasonal, injectable Dr. Nadir Grady Work Phone: [facility] Work Phone: 07-10-2015 influenza virus vacc ine, unspecified formulation Nadir Grady MD Work Phone: [facility] Work Phone: 07-24-2011 tetanus toxoid, redu radha diphtheria toxoid, and acellular pertussis vaccine, adsorbed Nadir Grady MD Work Phone: [facility] Work Phone: 05-18-2011 influenza virus vacc ine, unspecified formulation Nadir Grady MD Work Phone: [facility] Work Phone: 07-10-2010 influenza virus vacc ine, unspecified formulation Nadir Gardy MD Work Phone: [facility] Work Phone: 06-09-2009 influenza virus vacc ine, unspecified formulation Nadir Grady MD Work Phone: [facility] Work Phone: 06-07-2008 influenza virus vacc ine, unspecified formulation Nadir Grady MD Work Phone: [facility] 07-06-2007 influenza virus vacc ine, unspecified formulation Nadir Grady MD Work Phone: [facility] Work Phone: 07-05-2006 influenza virus vacc ine, unspecified formulation Nadir Grady MD Work Phone: [facility] Work Phone: Payers Date Payer Category Payer Self-pay [id number] 2018 Medicare HUMANA MEDICARE HUMANA GOLD PLUS [id number] 2018-Present [phone] [address] [address] [place] [address] [facility] [place] [id number] 2018 Medicare [id number] 2018 Medicare (Managed Care) HUMANA G OLD PLUS [id number] 2013 Medicare [id number] 1999 Unknown [facility] [id number] 1999-Present [phone] [facility] [address] [id number] 1999 Unknown [facility] COMP [id number] 1999-Present [phone] [facility] [address] [facility] [id number] Medicaid [id number] Medicare [id number] Unknown [id number]. 462 Unknown [id number] 2.16.840.1.388058.3.579.2. 462 Unknown [id number] 2.16.840.1.214048.3.579.2. 462 Unknown [id number] 2.16.840.1.720322.3.579.2. 462 Unknown [id number] 2.16.840.1.351849.3.579.2. 462 Unknown [id number] 2.840.1.980692.3.579.2. 462 Unknown [id number] 2.840.1.998393.3.579.2. 462 Unknown [id number] 2.840.1.093124.3.579.2. 462 Unknown [id number] 2.840.1.464270.3.579.2. 462 Unknown [id number] 2.840.1.004705.3.579.2. 462 Unknown [id number] 2.840.1.261563.3.579.2. 462 Unknown [id number] 2.840.1.528903.3.579.2. 462 Unknown [id number] 2.840.1.795712.3.579.2. 462 Unknown [id number] 2.840.1.012027.3.579.2. 462 Unknown [id number] 2.840.1.118996.3.579.2. 462 Unknown [id number] 2.840.1.141592.3.579.2. 462 Unknown [id number] 2.840.1.983062.3.579.2. 462 Unknown [id number] 2.840.1.279366.3.579.2. 462 Unknown [id number] 2.840.1.678301.3.579.2. 462 Unknown [id number] 2.840.1.485754.3.579.2. 462 Unknown [id number] 2.16.840.1.700286.3.579.2. 462 Unknown [id number] 2.16840.1.614220.3.579.2. 462 Unknown [id number] 2.16.840.1.748152.3.579.2. 462 Unknown [id number] 2.16840.1.491292.3.579.2. 462 Unknown [id number] 2.16840.1.011441.3.579.2. 462 Social History Date Type Detail Facility Start: 08-04-2015 End: 03-05-2025 Tobacco smoking status NHIS Never smoked tobacco [facility] Work Phone: End: 07-02-2014 History of tobacco use Chews Tobacco [facility] Work Phone: Start: 11-08-2021 End: 01-18-2025 Alcohol intake Current non-drinker of alcohol (finding) [facility] Start: 11-07-2020 End: 04-19-2022 History SDOH Alcohol Frequency 1 [facility] Start: 11-07-2020 End: 04-19-2022 History SDOH Alcohol Std Drinks 98 [facility] Start: 11-07-2020 End: 04-19-2022 History SDOH Social Connections Phone 5 [facility] Start: 11-07-2020 End: 04-19-2022 History SDOH Social Connections Get Together 2 [facility] Start: 11-07-2020 End: 04-19-2022 History SDOH Social Connections Living 4 [facility] Start: 11-07-2020 Education 11 [facility] Start: 08-04-2015 End: 04-19-2022 Tobacco Comment 1 can of chewing tobacco every 3 days PT QUIT 2014 [facility] Start: 1955 Sex Assigned At Not on file [facility] Start: 08-09-2020 End: 08-05-2022 Exposure to SARS-CoV-2 (event) Not sure [facility] Start: 12-13-2021 End: 12-03-2023 Tobacco smoking status NHIS Unknown if ever smoked [facility] Start: 03-04-2020 Occasional [facility] Start: 03-04-2020 None [facility] Start: 03-04-2020 With Family [facility] Start: 01-12-2021 Chew [facility] Start: 1955 Sex Assigned At Male [facility] History of tobacco use Cigarette Smoker [facility] Work Phone: Start: 08-04-2015 End: 07-20-2024 Tobacco use and exposure Former smokeless tobacco user [facility] Work Phone: Start: 04-19-2022 History SDOH Social Connections Synagogue 3 [facility] Start: 04-19-2022 End: 06-17-2023 History of Social function [facility] Start: 04-19-2022 End: 06-17-2023 Social connection and isolation panel [facility] Do you belong to any clubs or organizations such as cheondoism groups, unions, fraternal or athletic groups, or school groups? No [facility] How often do you att end meetings of the clubs or organizations you belong to? Patient refused [facility] Are you now , , , , never or living with a partner? [facility] How often to you hav e a drink containing alcohol? Never [facility] How hard is it for y ou to pay for the very basics like food, housing, medical care, and heating Not very hard [facility] Do you feel stress - tense, restless, nervous, or anxious, or unable to sleep at night because your mind is troubled all the time - these days [OSQ] Very much [facility] (I/We) worried wheth er (my/our) food would run out before (I/we) got money to buy more. Sometimes true [facility] Do you feel stress - tense, restless, nervous, or anxious, or unable to sleep at night because your mind is troubled all the time - these days [OSQ] Only a little [facility] (I/We) worried wheth er (my/our) food would run out before (I/we) got money to buy more. Never true [facility] Start: 11-17-2024 End: 12-28-2024 Sex Male (finding) [facility] Medical Equipment Procedure Code Equipment Code Equipment Origin al Text Equipment Identifier Dates [id number], [id number], [id number], [id number], [id number] Start: 10-14-2016 End: 06-26-2022 Comment on above: Use as directed as i ndicated to check quality of test strips Test blood sugar(s) 2 times daily. Dx: Type 2 DM - Uncontrolled E11.65 Insulin: No ([id number]) Drug-eluting coronary artery stent, bioabsorbable-polym er-coated ()[id number] FDA Start: 04-26-2021 ([id number]) Drug-eluting coronary artery stent, bioabsorbable-polym er-coated ()[id number] FDA Start: 07-23-2021 ([id number]) Implantable card iac monitor ()[id number] FDA Start: 12-14-2021 Drug-eluting coronary artery stent, dec-qrqjbowfarhkk-l olymer-coated ()[id number] FDA Start: 10-10-2023 Drug-eluting coronary artery stent, tkp-jvgoyscxtevct-o olymer-coated ()[id number] FDA Start: 10-10-2023 Drug-eluting coronary artery stent, dsq-bhuekyocqwlux-i olymer-coated ()[id number] FDA Start: 10-10-2023 Drug-eluting coronary artery stent, ruf-aorxyhycydfbp-u olymer-coated ()[id number] FDA Start: 10-10-2023 Drug-eluting coronary artery stent, ful-xjemdwairjwyy-a olymer-coated ()[id number] FDA Start: 10-10-2023 ([id number]) Drug-eluting coronary artery stent, bioabsorbable-polym er-coated ()[id number] 9 FDA Start: 10-10-2023 Drug-eluting coronary artery stent, yot-ppnpnvmkbhyek-q olymer-coated ()[id number] FDA Start: 08-16-2024 Goals Date Patient Goal Desired Activity /State Functional Status Date Assessment Result Facility 12-04-2023 Functional status Activity Abili ty Independent [facility] Work Phone: 10-11-2023 Functional status Up ad haile [facility] Work Phone: 03-07-2018 Are you deaf, or do you have serious difficulty hearing No 03/07/2018 3:34 PM EDT Opal Birch, RN No [facility] Work Phone: 03-07-2018 Are you blind, or do you have serious difficulty seeing, even when wearing glasses No 03/07/2018 3:34 PM EDT Opal Birch, RN No [facility] 03-07-2018 Do you have serious difficulty walking or climbing stairs No 03/07/2018 3:34 PM EDT Opal Birch, RN No [facility] 03-07-2018 Do you have difficul ty dressing or bathing No 03/07/2018 3:34 PM EDT Opal Birch, RIAN No [facility] 03-07-2018 Because of a physica l, mental, or emotional condition, do you have difficulty doing errands alone such as visiting a physician's office or shopping No 03/07/2018 3:34 PM EDT Opal Birch, RIAN No [facility] Mental Status Date Assessment Result Facility 03-05-2025 Cognitive function Voice/Name [facility] Work Phone: 08-27-2024 Cognitive function Voice/Name [facility] Work Phone: 12-04-2023 Cognitive function Voice/Name [facility] Work Phone: 12-03-2023 Cognitive function Level Of Cons ciousness Awake;Alert;Appropriate;Fol lows Commands [facility] Work Phone: 10-23-2023 Cognitive function Level Of Cons ciousness Awake;Alert;Appropriate;Fol lows Commands [facility] Work Phone: 10-15-2023 Cognitive function Voice/Name [facility] Work Phone: 10-11-2023 Cognitive function Voice/Name [facility] Work Phone: 10-09-2023 Cognitive function Awake;Alert;A ppropriate;Fol lows Commands [facility] Work Phone: 05-28-2022 Cognitive function Awake;Alert;A ppropriate;Fol lows [facility] Work Phone: 04-24-2022 Cognitive function Voice/Name [facility] Work Phone: 11-02-2021 Cognitive function Level Of Cons ciousness Awake;Alert;Appropriate;Fol lows [facility] Work Phone: 03-07-2018 Because of a physica l, mental, or emotional condition, do you have serious difficulty concentrating, remembering, or making decisions 03/07/2018 3:34 PM EDT Opal Birch RN No [facility] Clinical Notes 10-03-2016 to 03-08-2025 Telephone Encounter - Paula Donaldson LPN - 03/08/2025 10:59 AM EDTTelephone Encounter - Paula Donaldson LPN - 03/08/2025 10:59 AM Ambrocio Trinh MA - 03/07/2025 9:05 AM EDT Note Date & Type Note Facility 03-08-2025 Telephone encounter Note [employer] takes Pt Medicare insurance. And will go to Pt home to set up Cpap for him. They will call Pt and set up a day and time. Will fax new/replacement device order to [employer]. TC to Pt and updated him and he understood. Paula Donaldson LPN [facility] 03-08-2025 Miscellaneous Notes [employer] takes Pt Medicare insurance. And will go to Pt home to set up Cpap for him. They will call Pt and set up a day and time. Will fax new/replacement device order to [employer]. TC to Pt and updated him and he understood. Paula Donaldson LPN documented in this encounter [facility] 03-07-2025 Note HNO ID: [id number] Author: AMBROCIO BANKS MA Service: ? Author Type: Thermite Bomb Loader Type: Progress Notes Filed: 03/07/2025 09:05 Note Text: Scan on 03/05/2025 5:00 PM by Provider, Sonido, PA-C: [facility] 03-07-2025 History of Presen t illness Narrative Scan on 03/05/2025 5:00 PM by ProviderSonido PA-C: [facility] documented in this encounter [facility] 03-05-2025 Radiology Diagnostic study note [facility] Imaging Services [address] [place], [place] [address] Chest 1 View (Portable) MR#: [id number] Acct: [id number] Name: MICHAEL BATES Jr. Rep #: [id number] : 1955 M 70 From: Sarah Mendenhall MD PCP: Dr. Nadir Grady MD Status: REG ER Study:Chest 1 View (Portable) Date of Exam: 03/05/25 Exam# [id number] Ordering Dr: Blas Shah MD EXAM: XR Chest, 1 View CLINICAL INDICATION: CHEST PAIN TECHNIQUE: Frontal view of the chest. COMPARISON: No relevant prior studies available. FINDINGS: LUNGS AND PLEURAL SPACES: Unremarkable. No consolidation. No pneumothorax. HEART: Unremarkable. No cardiomegaly. MEDIASTINUM: Unremarkable. Normal mediastinal contour. BONES/JOINTS: Unremarkable. No acute fracture. RAD/Chest 1 View (Portable) IMPRESSION: No acute cardiopulmonary process. Reading Location: [facility] CC: Dr. Pop Shah MD; Dr. Nadir Grady MD ~ Storage Consultant: Signed [facility] 03-03-2025 Telephone encounter Note Pt was called and notified that we need an updated insurance card scanned in for his Cpap order. Paula Donaldson LPN [facility] 03-03-2025 Miscellaneous Notes Pt was called and notified that we need an updated insurance card scanned in for his Cpap order. Paula Donaldson LPN documented in this encounter [facility] 02-23-2025 Telephone encounter Note The following approved medication requests have been transmitted electronically. Requested Prescriptions Signed Prescriptions Disp Refills metFORMIN ER (GLUCOPHAGE XR) 500 mg 24 hr tablet 360 tablet 1 Sig: Take 2 tablets by mouth two times a day. Authorizing Provider: NADIR GRADY MD [facility] 02-23-2025 Miscellaneous Notes The following approved medication [...] 2025 8:33 AM documented in this encounter [facility] 02-23-2025 Telephone encounter Note Prescription Refill Information [...] Agudelo LPN February 23, 2025 9:19 AM [facility] 02-23-2025 Telephone encounter Note Prescription Refill Information [...] Ila Roach February 23, 2025 8:33 AM [facility] 02-22-2025 Note HNO ID: [id number] Author: LUIS E AGUDELO LPN Service: ? Author Type: LICENSED NURSE Type: Progress Notes Filed: 02/22/2025 12:25 Note Text: Scan on 02/22/2025 12:02 PM by ProviderSonido PA-C: Consultation - Cardiology [facility] 02-22-2025 History of Presen t illness Narrative Scan on 02/22/2025 12:02 PM by ProviderSonido PA-C: Consultation - Cardiology documented in this encounter [facility] 01-27-2025 Telephone encounter Note Prescription Refill Information [...] DARCY RANDHAWA January 27, 2025 8:03 AM [facility] 01-27-2025 Miscellaneous Notes Prescription Refill Information The [...] 2025 8:03 AM documented in this encounter [facility] 01-18-2025 Note HNO ID: [id number] Author: MARTHA BOSTON PA-C Service: ? Author Type: Physician Director Drug Type: Progress Notes Filed: 01/18/2025 10:40 Note [...] Diabetes (HCC) Diabetic eye exam ([facility]) 03/19/2017 Last done: 10/01/2018 Elevated LFTs 08/05/2015 [...] Date 2D ECHO (EXEP) 01/16/2017 EF=60%, 1+ SC and TI CATARACT EXTRACTION HX Left 10/2019 [...] tablet by mouth once daily. Per Cardio: [facility] Zinc Gluconate 50 mg tablet Take 50 mg by mouth once daily. ferrous sulfate 325 mg (65 mg iron) tablet Take 1 tablet by mo (more content not included)... [facility] 12-24-2024 Note HNO ID: [id number] Author: GENO PEREZ MA Service: ? Author Type: Thermite Bomb Loader Type: Progress Notes Filed: 12/26/2024 16:12 Note Text: Scan on 12/23/2024 6:40 PM by ProviderSonido PA-C: Miscellaneous Imaging Scan on 12/23/2024 6:35 PM by ProviderSonido PA-C: Carotid dulplex US Scan on 12/23/2024 6:34 PM by ProviderSonido PA-C: abd aortic [facility] 12-15-2024 History of Presen t illness [...] our pharmacy team is only on-site at [facility] on and patient was not willing to accept alternative scheduling options and ended up declining pharmacist services at this time. Thank you, Nirav Wilson PharmD, BCACP documented in this encounter [facility] 12-15-2024 Note HNO ID: [id number] Author: NIRAV WILSON RPh Service: ? Author [...] our pharmacy team is only on-site at [facility] on and patient was not willing to accept alternative scheduling options and ended up declining pharmacist services at this time. Thank you, Silva ClaytonD, BCACP [facility] 12-15-2024 Note Patient Outreach (PM STOW) MICHAEL [id number]) 1955 M Date Time Provider Department 12/15/24 NIRAV WILSON PMSTOW During your visit today, we recorded the following information about you: Nirav Wilson [facility] 12/15/2024 3:39 PM Signed Primary Care Pharmacy [...] our pharmacy team is only on-site at [facility] on and patient was not willing to accept alternative scheduling options and ended up declining pharmacist services at this time. Thank you, Nirav Wilson, PharmD, BCACP Allergies As of Date: 12/15/2024 Noted Allergy Reaction FLORINEF (FLUDROCORTISONE) 04/25/2022 18 - Angioedema LOSARTAN 10/24/2023 18 - Angioedema PERFUMES 01/20/2012 14 - Other: See Comments Comments: sneezing RANEXA (RANOLAZINE) 09/06/2024 14 - Other: See Comments Comments: Headache, nausea and nose bleed Date Reviewed: 12/13/2024 Reviewed by: Molly Houser APRN.THERMITE BOMB LOADER - Fully Assessed Reason for Visit: Care Coordination [3491] Cmt: Panel Management Review for Pharmacist Referral for Diabetes Management Prescriptions as of 12/15/2024 - metFORMIN ER (GLUCOPHAGE XR) 500 mg 24 hr tablet Take 2 tablets by mouth two times a day. - isosorbide mononitrate ER (IMDUR) 30 mg 24 hr tablet Take 1 tablet by mouth once daily. Per Cardio: [facility] - empagliflozin (JARDIANCE) 10 [...] 1 tablet by mouth once daily. Per [facility] - atorvastatin (LIPITOR) 80 mg [...] by mouth two times a day. Per [facility] - docosahexaenoic acid/epa (FISH OIL [...] strain [S13.9XXA] 07/30/2010 08/30/2010 Other physical therapy [[id number]] 08/16/2010 08/30/2010 Essential hypertension, benign [I10] 01/17/2012 [...] back pain wit (more content not included)... [facility] 12-13-2024 History of Presen t illness Narrative Images from the original note were not included. [facility] Follow up/ Established patient [...] apnea. Per pt choice will do at [facility]. To include RBD montage. Rx for zolpidem [...] your preferred time and location. Molly Houser APRN.THERMITE BOMB LOADER Here for follow up for discussion of PSG that was obtained due to snoring, frequent nocturnal awakening, non-restorative sleep, dream enactment behavior, sleep onset insomnia, excessive daytime sleepiness, RLS 11/09/24 PSG at [facility]: AHI 26 (4% scoring) Mean O2 [...] 1 tablet by mouth once daily. Per [facility] atorvastatin (LIPITOR) 80 mg tablet [...] will have a prescription sent to a [employer]) company - TBD who will be calling you in the next 1-2 weeks or so. Please call them directly or us if you do not hear from them in this time frame. - You should be eligible for new supplies approximately every 3-6 months, depending on your insurance coverage. - If your mask doesn't fit well, call the DME company before 30 days are up to get a new mask without an additional charge. - Insurance requires regular usage and periodic office follow ups for PAP therapy, to continue to cover supplies. - Follow up for 31-90 day PAP visit, follow up scheduled for 3 mos Molly Houser APRN.MIGEL documented in this encounter [facility] 12-13-2024 Note HNO ID: [id number] Author: MOLLY HOUSER APRN.CNP Service: ? Author Type: Nurse Practitioner Type: Progress Notes Filed: 12/16/2024 21:29 Note Text: [facility] Follow up/ Established patient [...] apnea. Per pt choice will do at [facility]. To include RBD montage. Rx for zolpidem [...] your preferred time and location. Molly Houser APRN.THERMITE BOMB LOADER Here for follow up for discussion of PSG that was obtained due to snoring, frequent nocturnal awakening, non-restorative sleep, dream enactment behavior, sleep onset insomnia, excessive daytime sleepiness, RLS 11/09/24 PSG at [facility]: AHI 26 (4% scoring) Mean O2 [...] tablet by mouth once daily. Per Cardio: [facility] empagliflozin (JARDIANCE) 10 mg [...] 1 tablet by mouth once daily. Per [facility] atorvastatin (LIPITOR) 80 mg tablet Take 1 tablet by mouth once daily. Managed by cardiology, Dr. Kern omeprazole (PRILOSEC (more content not included)... [facility] 12-08-2024 Evaluation note Diagnosis Onset Date Resolution Claudication of left lower extremity acute December 08, 2024 8:09am Bilateral carotid artery stenosis chronic December 08, 2024 8:09am History of coronary artery stent placement August 16, 2024 chronic December 08, 2024 8:09am Hyperlipidemia chronic December 08, 2024 8:09am Hypotension chronic December 08 8:09am Syncope October,December 08 8:09am [facility] [employer] Work Phone: 1(696) 129-597904-09-2025 Evaluation note* Diagnosis Onset Date Resolution Status [...] 10:55am Syncope October, chronic February 22 10:55am [facility] Work Phone: 1(593) 846-217803-18-2025 Telephone encounter Note* Telephone Encounter - Molly Houser APRN.CNP - 11/16/2024 5:58 PM EDT Will discuss at his upcoming follow up appointment. 11/09/24 PSG at [facility]: AHI 26 (4% scoring) Mean O2 91% Awake mean O2 93% O2 ira 81% O2 <=88% for 23.7 minutes No abnl behavior No RSWA All supine Interpreting physician recommends autoCPAP Molly Houser APRN.CNP [facility]03-18-2025 Miscellaneous Notes* Telephone Encounter - Molly Houser APRN.CNP - 11/16/2024 5:58 PM EDT Will discuss at his upcoming follow up appointment. 11/09/24 PSG at [facility]: AHI 26 (4% scoring) Mean O2 91% Awake mean O2 93% O2 ira 81% O2 <=88% for 23.7 minutes No abnl behavior No RSWA All supine Interpreting physician recommends autoCPAP Molly Houser APRN.CNP * Telephone Encounter - Karin Langston LPN - 11/15/2024 11:02 AM EDT Please see attached PSG results. Scan on 11/15/2024 9:56 AM by Sonido Lemon PA-C: [facility] PSG 11/09/24 Karin Langston LPN [facility] Telephone encounter Note * Telephone Encounter - Karin Langston LPN - 11/15/2024 11:02 AM EDT Please see attached PSG results. Scan on 11/15/2024 9:56 AM by Sonido Lemon PA-C: [facility] PSG 11/09/24 Karin Langston LPN [facility]02-24-2025 NoteHNO ID: [id number] Author: LUIS E AGUDELO LPN Service: ? Author Type: LICENSED NURSE Type: Progress Notes Filed: 10/25/2024 09:51 Note Text: Scan on 10/25/2024 9:20 AM by Sonido Lemon PA-C: [facility] History of Present illness Narrative* Luis E Agudelo LPN - 10/25/2024 9:51 AM EST Scan on 10/25/2024 9:20 AM by Sonido Lemon PA-C: Consultation - Ophthalmology documented in this encounterK[facility]-24-2025 NoteHNO ID: [id number] Author: LUIS E AGUDELO LPN Service: ? Author Type: LICENSED NURSE Type: Progress Notes Filed: 10/25/2024 07:02 Note Text: Scan on 10/23/2024 5:15 PM by Sonido Lemon PA-C: [facility] History of Present illness Narrative* Luis E Agudelo LPN - 10/25/2024 7:02 AM EST Scan on 10/23/2024 5:15 PM by Provider, HOANG Head: MRI documented in this encounterK[facility]02-21-2025 Instructions* Patient Instructions* Molly Houser APRN.THERMITE BOMB LOADER - 10/22/2024 1:32 PM EST Images from [...] open during sleep. A sleep specialist and multimedia educational specialist (with expertise in oral appliances for this [...] the back of the throat) Resources: The [facility] Guide to Sleep Disorders by Kemi Aguirre DO [employer] [address] [place] [address] [place] [phone] http://www.sleepfoundation.org/ [employer] [address] [place] [address], [address] [place] [address] http://www.sleepapnea.org/ documented in this encounterK[facility]02-21-2025 History of Present illness Narrative* Molly Houser APRN.CNP - 10/22/2024 1:00 PM EST Images from the original note were not included. [facility] New Patient Evaluation PATIENT NAME: Michael Bates DATE OF SERVICE: October 22, 2024 CONSULTING PROVIDER: Nadir Grady [address] [facility] [address] REASON FOR CONSULT: Nadir Grady sends the patient for an opinion about hypersomnolence, snores, sleep initiation dysfunction. My findings and recommendations will be transmitted electronically via shared medical record to the consulting provider. HPI: Michael Bates is a 69 year old male. Sleep-related history: he describes his sleep as "not the greatest", that has been the case for years, [...] Diabetes (HCC) Diabetic eye exam ([facility]) 03/19/2017 Last done: 10/01/2018 Elevated LFTs 08/05/2015 [...] Date 2D ECHO (EXEP) 01/16/2017 EF=60%, 1+ SC and TI CATARACT EXTRACTION HX Left 10/2019 [...] Eluting Coronary Stent Placement Diabetic Eye Exam (Hcc) Leg Pain, Bilateral Medicare Annual Wellness Visit, [...] 1 tablet by mouth once daily. Per Cardio:[facility] empagliflozin (JARDIANCE) 10 mg [...] 10 MINUTES NEEDED, 2 doses, Starting on 10/14/22 at 1158, Until Tu10/15/22 at 0417, for shivering May Repeat 12.5 [...] apnea. Per pt choice will do at [facility]. To include RBD montage. Rx for zolpidem [...] your preferred time and location. Molly Houser APRN.MIGEL I spent a total of 62 minutes on the date of the service which included preparing to see the patient, [id number] patient care, completing clinical documentation, performing a medically appropriate examination, counseling and educating the patient/family/caregiver, and ordering medications, tests,or procedures. documented in this encounterK[facility]02-21-2025 NoteHNO ID: [id number] Author: MOLLY HOUSER APRN.CNP Service: ? Author Type: Nurse Practitioner Type: Progress Notes Filed: 10/22/2024 13:57 Note Text: [facility] New Patient Evaluation PATIENT NAME: Michael Bates DATE OF SERVICE: October 22, 2024 CONSULTING PROVIDER: Nadir Grady [address] [facility] [address] REASON FOR CONSULT: Nadir Grady sends the patient for an opinion about hypersomnolence, snores, sleep initiation dysfunction. My findings and recommendations will be transmitted electronically via shared medical record to the consulting provider. HPI: Michael Bates is a 69 year old male. Sleep-related history: he describes his sleep as "not the greatest", that has been the case for years, [...] (degenerative disc disease), lumb (more content not included)...[facility]02-06-2025 Telephone encounter Note* Telephone Encounter - Martha Boston PA-C - 10/07/2024 2:28 PM EST Noted. [facility]02-06-2025 Miscellaneous Notes* Telephone Encounter - Martha Boston [...] symptom. Martha Boston PA-C documented in this encounterK[facility]02-06-2025 Telephone encounter Note * Telephone Encounter - Luis E Agudelo LPN - 10/07/2024 2:16 PM EST Pt notified of results and instructions. Pt verbalizes understanding. Pt prefers just to see pain medicine for now. Does not want to try OTC Flonase. States he gets thrush from nasal sprays. Luis E Agudelo LPN [facility]02-06-2025 Telephone encounter Note* Telephone Encounter - Martha [...] will help hisheadache symptom. Martha Boston PA-C [facility]02-06-2025 History of Present illness Narrative* Yovanny Wright [...] PATIENT PRESENTS WITH AN IMPLANTABLE OR ATTACHED DIAGNOSTIC MEDICAL SONOGRAPHER: No ALLERGIES: Reviewed and unchanged CONTRAST ALLERGY: NO. EXAM: MRI - CONTRAST TYPE: GROUP II PERIPHERAL IV DATA: Ambulatory: A peripheral IV was started in the Right antecubital site with a Angio cath: 22 gauge. RADIOLOGY DEPARTMENT: MR; Exam(s) Completed: Head: Routine Brain SIGNATURE: RT Valarie(Emmanuelle) PATIENT NAME: Michael Bates DATE: October 07, 2024 TIME: 11:22 AM documented in this encounterKet[facility]02-06-2025 NoteHNO ID: [id number] Author: YOVANNY WRIGHT RT(R) Service: ? Author Type: Technologist Type: [...] PATIENT PRESENTS WITH AN IMPLANTABLE OR ATTACHED DIAGNOSTIC MEDICAL SONOGRAPHER: No ALLERGIES: Reviewed and unchanged CONTRAST ALLERGY: NO. EXAM: MRI - CONTRAST TYPE: GROUP II PERIPHERAL IV DATA: Ambulatory: A peripheral IV was started in the Right antecubital site with a Angio cath: 22 gauge. RADIOLOGY DEPARTMENT: MR; Exam(s) Completed: Head: Routine Brain SIGNATURE: Yovanny Leon Mayuri Wright, RT(R) PATIENT NAME: Michael Bates DATE: October 07, 2024 TIME: 11:22 [facility]02-06-2025 NoteHNO ID: [id number] Author: MARTHA BOSTON PA-C Service: ? Author Type: Physician Director Drug Type: Progress Notes Filed: 10/07/2024 09:53 Note [...] Diabetes (HCC) Diabetic eye exam ([facility]) 03/19/2017 Last done: 10/01/2018 Elevated LFTs 08/05/2015 [...] Date 2D ECHO (EXEP) 01/16/2017 EF=60%, 1+ SC and TI CATARACT EXTRACTION HX Left 10/2019 [...] dysplasia, repeat in 2 years EGD W/O [facility] SPEC VARICIES INJ 10/14/2022 FECAL OCCULT BLOOD [...] tablet by mouth once daily. Per Cardio: [facility] empagliflozin (JARDIANCE) 10 mg tablet Take 1 tabl (more content not included)...[facility] History of Present illness Narrative* Martha [...] Date 2D ECHO (EXEP) 01/16/2017 EF=60%, 1+ SC and TI CATARACT EXTRACTION HX Left 10/2019 [...] 1 tablet by mouth once daily. Per [facility] atorvastatin (LIPITOR) 80 mg tablet Take 1 tablet by mouth once daily. Managed by cardiology, Dr. Kern omeprazole (PRILOSEC) 40 mg capsule Take 1 capsule by mouth once daily. Per [facility] ticagrelor (BRILINTA) 90 mg tablet Take 1 tablet by mouth two times a day. Per [facility] docosahexaenoic acid/epa (FISH OIL ORAL) [...] which included preparing to see the patient, [id number] patient care, completing clinical documentation, obtaining and/or reviewing separately obtained history, performing a medically appropriate examination, counseling and educating the pat ient/family/caregiver, ordering medications, tests, or procedures, and communicating with other HCPs (not separately reported). documented in this [facility]01-24-2025 NoteHNO ID: [id number] Author: LUIS E AGUDELO LPN Service: ? Author Type: LICENSED NURSE Type: Progress Notes Filed: 09/24/2024 10:12 Note Text: Scan on 09/24/2024 8:34 AM by Sonido Lemon PA-C: [facility]01-24-2025 History of Present illness Narrative* Luis E Agudelo LPN - 09/24/2024 10:12 AM EST Scan on 09/24/2024 8:34 AM by Sonido Lemon PA-C: Chemistry documented in this encounterK[facility]01-23-2025 NoteHNO ID: [id number] Author: LUIS E AGUDELO LPN Service: ? Author Type: LICENSED NURSE Type: Progress Notes Filed: 09/23/2024 14:49 Note Text: Scan on 09/23/2024 1:38 PM by Sonido Lemon PA-C: [facility]01-23-2025 History of Present illness Narrative* Luis E Agudelo LPN - 09/23/2024 2:48 PM EST Scan on 09/23/2024 1:38 PM by Sonido Lemon PA-C: Chemistry documented in this [facility]01-22-2025 NoteHNO ID: [id number] Author: LUIS E AGUDELO LPN Service: ? Author Type: LICENSED NURSE Type: Progress Notes Filed: 09/22/2024 07:08 Note Text: Scan on 09/21/2024 10:00 PM by ProviderSonido PA-C: [facility] History of Present illness Narrative* Luis E Agudelo LPN - 09/22/2024 7:08 AM EST Scan on 09/21/2024 10:00 PM by Sonido Lemon PA-C: X-ray documented in this encounterK[facility]01-21-2025 NoteHNO ID: [id number] Author: LUIS E AGUDELO LPN Service: ? Author Type: LICENSED NURSE Type: Progress Notes Filed: 09/21/2024 07:05 Note Text: Scan on 09/20/2024 8:35 PM by ProviderSonido PA-C: [facility] History of Present illness Narrative* Luis E Agudelo LPN - 09/21/2024 7:05 AM EST Scan on 09/20/2024 8:35 PM by Sonido Lemon PA-C: Chemistry documented in this encounterK[facility]01-08-2025 Evaluation note* Diagnosis Onset Date Resolution Status Admit Date Bilateral carotid artery stenosis chronic September 08 12:50pm History of coronary artery stent placement August 16, 2024September 08, 2024 12:50pm Hyperlipidemia september 12:50pm Hypotension [...] December 08 8:09am Syncope October,December 08 8:09am [facility] Work Phone: 1(544) 947-391001-07-2025 Telephone encounter Note* Telephone Encounter - Meg Miller MA - 09/07/2024 8:25 AM EST Pt notified and verbalized understanding Meg Miller MA [facility]01-07-2025 Miscellaneous Notes* Telephone Encounter - Meg Miller MA - 09/07/2024 8:25 AM EST Pt notified and verbalized understanding Meg Miller MA * Telephone Encounter - Nadir Grady MD - 09/06/2024 11:17 PM EST Let patient know his repeat chest x-ray was normal. documented in this encounterKet[facility]01-06-2025 Telephone encounter Note * Telephone Encounter - Nadir Grady MD - 09/06/2024 11:17 PM EST Let patient know his repeat chest x-ray was normal. [facility]01-06-2025 History of Present illness Narrative* Chaz Pastor RT(R) - 09/06/2024 4:50 PM EST Radiology Service [...] PATIENT PRESENTS WITH AN IMPLANTABLE OR ATTACHED DIAGNOSTIC MEDICAL SONOGRAPHER: No RADIOLOGY DEPARTMENT: General X-ray: Exam(s) Completed: Chest X-Ray PERIPHERAL IV DATA: Not applicable SIGNED BY: RT Angie(Emmanuelle) September 06, 2024 4:46 PM documented in this encounterKet[facility]01-06-2025 NoteHNO ID: [id number] Author: CHAZ PASTOR RT(R) Service: Radiology Author Type: Technologist Type: Progress [...] PATIENT PRESENTS WITH AN IMPLANTABLE OR ATTACHED DIAGNOSTIC MEDICAL SONOGRAPHER: No RADIOLOGY DEPARTMENT: General X-ray: Exam(s) Completed: Chest X-Ray PERIPHERAL IV DATA: Not applicable SIGNED BY: RT Angie(Emmanuelle) September 06, 2024 4:46 [facility]01-06-2025 History of Present illness Narrative* Nadir Grady [...] on 08/27/2024 he had been at [facility] and noted shortness of breath, then when [...] Neurologia. He ws seeing pain management at [facility] and had been receiving neck injections [...] Diabetes (HCC) Diabetic eye exam ([facility]) 03/19/2017 Last done: 10/01/2018 Elevated LFTs 08/05/2015 [...] Date 2D ECHO (EXEP) 01/16/2017 EF=60%, 1+ SC and TI CATARACT EXTRACTION HX Left 10/2019 [...] 1 tablet by mouth once daily. Per Cardio:[facility] empagliflozin (JARDIANCE) 10 mg [...] 1 tablet by mouth once daily. Per [facility] atorvastatin (LIPITOR) 80 mg tablet Take 1 tablet by mouth once daily. Managed by cardiology, Dr. Kern omeprazole (PRILOSEC) 40 mg capsule Take 1 capsule by mouth once daily. Per [facility] ranolazine ER (RANEXA) 1,000 mg tab ER 12 hr Take 1 tablet by mouth two times a day. Per [facility] carvedilol (COREG) 3.125 mg tablet Take 1 tablet by mouth two times a day. Per [facility] (Patient not taking: Reported on 07/20/2024) ticagrelor (BRILINTA) 90 mg tablet Take 1 tablet by mouth two times a day. Per [facility] docosahexaenoic acid/epa (FISH OIL ORAL) [...] CONSULT TO PAIN MGT: Dr. Paz at [facility] 8. Cervicogenic headache - ICD9: 784.0, ICD10: G44.86 - CONSULT TO PAIN MGT F/u as need otherwise next routine in December. I spent a total of 65 minutes on the date of the service which included preparing to see the patient, cswc-eq-unlp patient care, completing clinical documentation, performing a medically appropriate examination, counseling and educating the patient/family/caregiver and ordering medications, tests, or procedures. Nadir Grady MD documented in this encounterK[facility]01-06-2025 NoteHNO ID: [id number] Author: NADIR GRADY MD Service: ? Author [...] Neurologia. He ws seeing pain management at [facility] and had been receiving neck injections [...] Diabetes (HCC) Diabetic eye exam ([facility]) 03/19/2017 Last done: 10/01/2018 Elevated LFTs 08/05/2015 [...] Date 2D ECHO (EXEP) 01/16/2017 EF=60%, 1+ SC and TI CATARACT EXTRACTION HX Left 10/2019 CC CORONARY STENT 05/10/2020 RODDY to pLCx CC CORONARY STENT 12/2016 Ramus of Circ and LAD CC CORONARY STENT 11/20/2020 RODDY to pLCx and PTCA to OM2 CC CORONARY STENT 07/23/2021 PCI to prox Lt Circ in-stent restenosis then place (more content not included)...[facility]12-21-2024 Telephone encounter Note* Telephone Encounter - [...] Sheryl Martinez August 21, 2024 8:28 AM [facility]12-21-2024 Miscellaneous Notes* Telephone Encounter - Sheryl Martinez [...] 21, 2024 8:28 AM documented in this encounterKettering Health [facility]12-17-2024 NoteHNO ID: [id number] Author: KARLA WADSWORTH MA Service: ? Author Type: Thermite Bomb Loader Type: Progress Notes Filed: 08/17/2024 11:31 Note Text: Scan on 08/16/2024 9:33 AM by Sonido Lemon PA-C: Cardiac Cath Scan on 08/16/2024 10:35 AM by Sonido Lemon PA-C: Cardiac Cath Patient has heart cath completed with Dr. Kenr at [facility] on 08/16/2024. Restenosis noted on the proximal right coronary artery stent. New stent placed. Karla Wadsworth [facility]12-17-2024 History of Present illness Narrative* Karla Wadsworth MA - 08/17/2024 11:27 AM EST Scan on 08/16/2024 9:33 AM by ProviderSonido PA-C: Cardiac Cath Scan on 08/16/2024 10:35 AM by ProviderSonido PA-C: Cardiac Cath Patient has heart cath completed with [facility] Kern at [facility] on 08/16/2024. Restenosis noted on the proximal right coronary artery stent. New stent placed. Karla Wadsworth MA documented in this encounterKettering Health [facility]12-12-2024 NoteHNO ID: [id number] Author: BRIDGET JOSEPH APRN.THERMITE BOMB LOADER Service: ? Author Type: Nurse Practitioner Type: Progress Notes Filed: 08/12/2024 08:15 Note Text: This note was created using [employer]. Subjective Michael Bates is a 69 year [...] and Plan ASSESSMENT/PLAN: 1. Adverse effect of ufbi-bnk-cjjobbo medication, initial encounter - ICD9: E947.9, ICD10: T50.905A On physical exam I saw no obvious sign of swelling to the mouth, lips, or tongue. Patient did have a tiny sore near the base of the frenulum. I informed patient he should use vfqk-oce-prqakck antihistamine such as Claritin, Benadryl, or Zyrtec. I informed him that if it anytime he felt as though his symptoms were not improving or he was having any trouble with swallowing or breathing he should go directly to the emergency department. He was instructed not to use the drops again. Bridget Joseph APRN.[facility]12-12-2024 History of Present illness Narrative* Bridget Joseph APRN.THERMITE BOMB LOADER - 08/12/2024 8:06 AM EST This note was created using [employer]. Subjective Michael Bates is a 69 year [...] and Plan ASSESSMENT/PLAN: 1. Adverse effect of siqi-dhp-amsvzca medication, initial encounter - ICD9: E947.9, ICD10: T50.905A On physical exam I saw no obvious sign of swelling to the mouth, lips, or tongue. Patient did have a tiny sore near the base of the frenulum. I informed patient he should use ehdp-ibk-xepfqlp antihistamine such as Claritin, Benadryl, or Zyrtec. I informed him that if it anytime he felt as though his symptoms were not improving or he was having any trouble with swallowing or breathing he should godirectly to the emergency department. He was instructed not to use the drops again. Bridget Joseph APRN.THERMITE BOMB LOADER documented in this encounterKettering Health [facility]12-10-2024 Telephone encounter Note * Telephone Encounter - Cody Blue RN - 08/10/2024 12:46 PM EST Pt called and is notified of providers results and instructions. Pt voices understanding. Cody Blue RN [facility]12-10-2024 Miscellaneous Notes* Telephone Encounter - Cody Blue RN - 08/10/2024 12:46 PM EST Pt called and is notified of providers results and instructions. Pt voices understanding. Cody Blue RN * Telephone Encounter - Martha Bosotn PA-C - 08/10/2024 11:19 AM EST Let patient know that repeat alk phos levels were better and only the intestinal portion was elevated. No further evaluation at this time. We will monitor. Martha Boston PA-C documented in this encounterKettering Health [facility]12-10-2024 Telephone encounter Note * Telephone Encounter - Martha Boston PA-C - 08/10/2024 11:19 AM EST Let patient know that repeat alk phos levels were better and only the intestinal portion was elevated. No further evaluation at this time. We will monitor. Martha Boston PA-C [facility]12-04-2024 Telephone encounter Note* Telephone Encounter - Martha Boston PA-C - 08/04/2024 10:09 AM EST Noted [facility]12-04-2024 Miscellaneous Notes* Telephone Encounter - Martha Boston [...] month. Karla Wadsworth MA documented in this encounterKettering Health [facility]12-04-2024 Telephone encounter Note * Telephone Encounter - [...] heart procedure this month. Karla Wadsworth MA [facility]11-29-2024 NoteHNO ID: [id number] Author: KARLA WADSWORTH MA Service: ? Author Type: Thermite Bomb Loader Type: Progress Notes Filed: 07/30/2024 15:25 Note Text: Scan on 07/28/2024 9:25 AM by Sonido Lemon PA-C: Consultation - Cardiology Karla Wadsworth [facility]11-29-2024 History of Present illness Narrative* Karla Wadsworth MA - 07/30/2024 3:24 PM EST Scan on 07/28/2024 9:25 AM by Sonido Lemon PA-C: Consultation - Cardiology Karla Wadsworth MA documented in this encounterKettering Health [facility]11-29-2024 NoteHNO ID: [id number] Author: KARLA WADSWORTH MA Service: ? Author Type: Thermite Bomb Loader Type: Progress Notes Filed: 07/30/2024 15:23 Note Text: Scan on 07/28/2024 10:20 AM by Sonido Lemon PA-C: Chemistry Scan on 07/28/2024 10:45 AM by Sonido Lemon PA-C: Chemistry Scan on 07/30/2024 10:40 AM by Sonido Lemon PA-C: X-ray Karla Wadsworth [facility]11-29-2024 History of Present illness Narrative* Karla Wadsworth MA - 07/30/2024 3:23 PM EST Scan on 07/28/2024 10:20 AM by Sonido Lemon PA-C: Chemistry Scan on 07/28/2024 10:45 AM by Sonido Lemon PA-C: Chemistry Scan on 07/30/2024 10:40 AM by Provider, HOANG Head: X-ray Karla Wadsworth MA documented in this encounterKettering Health [facility]11-27-2024 Evaluation note* Diagnosis Onset Date Resolution Status Admit Date Chest pain acute July 28, 2024 8:10am Bilateral carotid artery stenosis chronic July 28, 2 8:10am History of coronary artery stent placement August 16, 2024July h2023 8:10am Hyperlipidemia chronic July 032023 8:10am Hypotension chronic July 8:10am Syncope October, chronic July 8:10am Bilateral carotid artery stenosis chronic September 08 12:50pm History of coronary artery stent placement August 16, 2024 chronic September 08, 2024 12:50pm Hyperlipidemia september 12:50pm Hypotension September 08, 2024 12:50pm Syncope October,September 08, 2024 12:50pm [facility] Work Phone: 1(677) 600-107811-23-2024 History of Present illness Narrative* Griffin Danielson RT(R) - 07/24/2024 9:30 AM EST Radiology [...] PATIENT PRESENTS WITH AN IMPLANTABLE OR ATTACHED DIAGNOSTIC MEDICAL SONOGRAPHER: No RADIOLOGY DEPARTMENT: General X-ray: Exam(s) Completed: Upper Extremity X- Ray(s): Wrist, right PERIPHERAL IV DATA: Not applicable SIGNED BY: RT Petar(Emmanuelle) July 24, 2024 9:37 AM documented in this encounterKettering Health [facility]11-23-2024 NoteHNO ID: [id number] Author: GRIFFIN DANIELSON RT(Emmanuelle) Service: ? Author Type: Technologist Type: Progress [...] PATIENT PRESENTS WITH AN IMPLANTABLE OR ATTACHED DIAGNOSTIC MEDICAL SONOGRAPHER: No RADIOLOGY DEPARTMENT: General X-ray: Exam(s) Completed: Upper Extremity X-Ray(s): Wrist, right PERIPHERAL IV DATA: Not applicable SIGNED BY: RT Petar(Emmanuelle) July 24, 2024 9:37 [facility]11-23-2024 NoteHNO ID: [id number] Author: BRIDGET JOSEPH APRN.MIGEL Service: ? Author Type: Nurse Practitioner Type: Progress Notes Filed: 07/24/2024 10:19 Note Text: This note was created using NoteWriter. Subjective Michael Bates is a 69 year [...] WRIST GENERAL 3V PA/LAT/OBL RIGHT Bridget Joseph APRN.[facility]NPBluffton Hospital11-23-2024 History of Present illness Narrative* Bridget Joseph APRN.THERMITE BOMB LOADER - 07/24/2024 9:25 AM EST This note was created using [employer]. Subjective Michael Bates is a 69 year [...] WRIST GENERAL 3V PA/LAT/OBL RIGHT Bridget Joseph APRN.THERMITE BOMB LOADER documented in this encounterKettering Health [facility]11-20-2024 Telephone encounter Note * Telephone Encounter - LuisE Agudelo LPN - 07/21/2024 1:18 PM EST Pt notified of same. He will check with pharmacy for medication. Pt will contact office if any problems. Luis E Agudelo LPN [facility]11-20-2024 Miscellaneous Notes* Telephone Encounter - Luis E [...] Martha Boston PA-C * Telephone Encounter - Cody Blue RN - 07/21/2024 12:03 PM EST Pt called and is notified of providers results and instructions. Pt voices understanding. Pt stateshe isn't sure about giving himself a weekly injectable. Pt states pills would be better and was asking if provider could switch to this. Please call and advise. Cody Blue RN * Telephone Encounter - Martha [...] Thanks. Martha Boston PA-C documented in this encounterKettering Health [facility]11-20-2024 Telephone encounter Note * Telephone Encounter - Martha Boston PA-C - 07/21/2024 12:14 PM EST We will see if insurance will cover jardiance. It is once a day. Martha Boston PA-C [facility]11-20-2024 Telephone encounter Note* Telephone Encounter - Cody Blue RN - 07/21/2024 12:03 PM EST Pt called and is notified of providers results and instructions. Pt voices understanding. Pt stateshe isn't sure about giving himself a weekly injectable. Pt states pills would be better and was asking if provider could switch to this. Please call and advise. Cody Blue RN [facility]11-20-2024 Telephone encounter Note* Telephone Encounter - Martha [...] to be fasting. Thanks. Martha Boston PA-C [facility]11-19-2024 Instructions* Patient Instructions* Martha Boston PA-C - 07/20/2024 8:08 AM SHA Screening schedule The following prevention plan is [...] review all the medicines you take, even aydo-xjt-iehsrou medicines. As you get older, the way [...] have certain medical conditions. documented in this encounterKettering Health [facility]11-19-2024 NoteHNO ID: [id number] Author: MARTHA BOSTON PA-C Service: ? Author Type: Physician Director Drug Type: Progress Notes Filed: 07/20/2024 09:14 Note [...] ?F) Resp 16 Ht 174.8 cm (5' 8.8") Wt 77.6 kg (171 lb) SpO2 97% [...] Patient overall doing okay. Having episode of "falling asleep" randomly in the evening. Seeing cardiology. No [...] Date 2D ECHO (EXEP) 01/16/2017 EF=60%, 1+ SC and TI CATARACT EXTRACTION HX Left 10/2019 CC CORONARY STENT 05/10/2020 (more content not included)...[facility]11-19-2024 History of Present illness Narrative* Martha [...] F) Resp 16 Ht 174.8 cm (5' 8.8") Wt 77.6 kg (171 lb) SpO2 97% [...] Patient overall doing okay. Having episode of "falling asleep" randomly in the evening. Seeing cardiology. No [...] Diabetes (HCC) Diabetic eye exam ([facility]) 03/19/2017 Last done: 10/01/2018 Elevated LFTs 08/05/2015 [...] Date 2D ECHO (EXEP) 01/16/2017 EF=60%, 1+ SC and TI CATARACT EXTRACTION HX Left 10/2019 [...] dysplasia, repeat in 2 years EGD W/O [facility] SPEC VARICIES INJ 10/14/2022 FECAL OCCULT BLOOD [...] 1 tablet by mouth once daily. Per [facility] atorvastatin (LIPITOR) 80 mg tablet Take 1 tablet by mouth once daily. Managed by cardiology, Dr. Kern omeprazole (PRILOSEC) 40 mg capsule Take 1 capsule by mouth once daily. Per [facility] metFORMIN ER (GLUCOPHAGE XR) 500 mg 24 hr tablet Take 2 tablets by mouth two times a day. ferrous sulfate 325 mg (65 mg iron) tablet Take 1 tablet by mouth two times a day with meals. ranolazine ER (RANEXA) 1,000 mg tab ER 12 hr Take 1 tablet by mouth two times a day. Per [facility] ticagrelor (BRILINTA) 90 mg tablet Take 1 tablet by mouth two times a day. Per [facility] docosahexaenoic acid/epa (FISH OIL ORAL) [...] F) Resp 16 Ht 174.8 cm (5' 8.8") Wt 77.6 kg (171 lb) SpO2 97% [...] Chronic Disease Visit due on 06/17/2024 Covid-19 Vaccine() due on 07/20/2025 Dilated Retinal Exam due [...] 1 month. - THYROID STIMULATING HORMONE Martha Boston PA-C I spent a total of 45 minutes on the date of the service which included preparing to see the patient, blrr-jn-azgi patient care, completing clinical documentation, obtaining and/or reviewing separately obtained history, performing a medically appropriate examination, counseling and educating the pat ient/family/caregiver, ordering medications, tests, or procedures, and communicating results to thepatient/family/caregiver. documented in this encounterKettering Health [facility]08-19-2024 Note* Addendum Note - Nadir Grady MD - 04/19/2024 11:12 AM EDTAddended by: NADIR GRADY on: 04/19/2024 11:12 AM Modules accepted: Orders [facility]08-19-2024 Miscellaneous Notes* Addendum Note - Nadir Grady MD - 04/19/2024 11:12 AM EDTAddended by: NADIR GRADY on: 04/19/2024 11:12 AM Modules accepted: Orders documented in this encounterKettering Health [facility]08-19-2024 NoteHNO ID: [id number] Author: LUIS E AGUDELO LPN Service: ? Author Type: LICENSED NURSE Type: Progress Notes Filed: 04/19/2024 10:30 Note Text: Scan on 04/19/2024 9:22 AM by ProviderSonido PA-C: Consultation - [facility]iologyBl[facility]08-19-2024 History of Present illness Narrative* Luis E Agudelo LPN - 04/19/2024 10:29 AM EDT Scan on 04/19/2024 9:22 AM by ProviderSonido PA-C: Consultation - Cardiology documented in this encounterKettering Health [facility]07-10-2024 History of Present illness Narrative* Aydee Posey MA - 03/10/2024 11:36 AM EDT POPULATION HEALTH NAVIGATION OUTREACH Action/FYI msg to schedule wellness, hcc gap closure, hgba1c- not pended as I didn't speak to the patient Reason for Outreach Care Gap/HCC or Scheduling Wellness Visits Care Gaps due: Medicare Annual Wellness Visit HBA1C Patient Contacted: Unable or unnecessary to reach patient: Unable to leave message [employer] message sent HCC related Navigation Signature: Aydee Posey MA March 10, 2024 11:37 AM documented in this encounterKettering Health [facility]06-21-2024 Telephone encounter Note * Telephone Encounter - Molly Ordonez - 02/20/2024 [...] Molly Ordonez February 20, 2024 11:51 AM [facility]06-21-2024 Miscellaneous Notes* Telephone Encounter - Molly Ordonez [...] 20, 2024 11:51 AM documented in this encounterKettering Health [facility]05-24-2024 Telephone encounter Note * Telephone Encounter - [...] should contact Prescriber first Nadir Grady MD [facility]05-24-2024 Miscellaneous Notes* Telephone Encounter - Nadir Grady [...] Thank you. Ila Roach. documented in this encounterKettering Health [facility]05-24-2024 Telephone encounter Note * Telephone Encounter - Karla Wadsworth MA - 01/23/2024 3:53 PM EDT Sent patient my chart message. Patient is due for medicare wellness. Karla Wadsworth MA [facility]05-23-2024 Telephone encounter Note* Telephone Encounter - Ila [...] date not found Please advise. Thank you. Ial Roach. [facility]04-30-2024 History of Present illness Narrative* Beulah Wright LPN - 12/30/2023 12:05 PM EDT Scan on 12/30/2023 9:52 AM by Provider, HOANG Head: Consultation - Cardiology Beulah Wright LPN documented in this encounterKettering Health [facility]burg04-22-2024 History of Present illness Narrative* Francine Bartholomew RT(R) - 12/22/2023 9:30 AM EDT Radiology [...] PATIENT PRESENTS WITH AN IMPLANTABLE OR ATTACHED DIAGNOSTIC MEDICAL SONOGRAPHER: No RADIOLOGY DEPARTMENT: General X-ray: Exam(s) Completed: Upper Extremity X- Ray(s): Forearm, left andHand, left PERIPHERAL IV DATA: Not applicable SIGNED BY: RT Collin(R) December 22, 2023 9:26 AM documented in this encounterKettering Health [facility]04-22-2024 History of Present illness Narrative* Karin Hamm APRN.THERMITE BOMB LOADER - 12/22/2023 9:16 AM EDT This note was created using NoteWriter. Subjective Michael Bates is a 68 year old male. 68 year old male with PMH DM, HTN, hyperlipidemia, adjustment disorder presents for arm pain. Acute onset 2 days ago. States that he is building a deck at his house. A board "smacked" my arm. +ecchymosis +tenderness +pain Denies head injury or LOC Denies neck or back pain Denies break in skin integrity. Denies weakness. Denies blood thinners. Denies additional injuries. Right hand dominant. 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 The history is provided by the patient. No furnace combination analyst was used. Wrist/forearm Injury The incident occurred [...] Date 2D ECHO (EXEP) 01/16/2017 EF=60%, 1+ SC and TI CATARACT EXTRACTION HX Left 10/2019 [...] by mouth two times a day. Per [facility] atorvastatin (LIPITOR) 40 mg tablet [...] by mouth two times a day. Per [facility] nystatin (MYCOSTATIN) 100,000 unit/mL suspension [...] F/U with PCP and ortho Karin Hamm APRN.THERMITE BOMB LOADER documented in this encounterKettering Health [facility]04-05-2024 History of Present illness Narrative* Beulah Wright LPN - 12/05/2023 12:13 PM EDT an on 12/03/2023 7:00 PM by Sonido Lemon PA-C: Consultation - Cardiology Scan on 12/04/2023 12:13 AM by Sonido Lemon PA-C: Consultation - Emergency Medicine Beulah Wright LPN documented in this encounterKettering Health [facility]04-04-2024 History of Present illness Narrative* Beulah Wright LPN - 12/04/2023 2:56 PM EDT Scan on 12/04/2023 1:38 PM by Sonido Lemon PA-C: EKG Beulah Wright LPN documented in this encounterKettering Health [facility]burg04-04-2024 Discharge summary Author Jered Huff [facility] December 04, 2023 12:00am Note Date/Time December 03, 2023 2:30 pm [facility] Medical Records Department [address] [place] [address] Emergency Department Summary 12/03/23 MR#: [id number] Acct: [id number] Name: MICHAEL BATES Jr. Rep #:[id number] : 1955 68 From: Jered Castillo PCP: Dr. Nadir Grady MD Status:ADM JASON Location: [address] History of Present Illness Chief Complaint: [...] PFSH Medical History Atherosclerotic heart disease of solomon coronary artery without angina pectoris (10/10/23) Bilateral carotid artery stenosis BPH (benign prostatic hyperplasia) COVID-19 (06/2021) DDD (degenerative disc disease) Elevated LFTs Essential (primary) hypertension History of CAD (coronary artery disease) Hx of diabetes insipidus Hyperlipidemia Hypertension Sciatica Syncope (10/2021) Tremor of both hands Type 2 diabetes mellitus Home Medications aspirin 81 mg tablet,delayed release 81 mg PO DAILY@0800 [facility] 09/13/13 [History Last Taken 02/11/22] omega 3-urx-qfb-fish oil 1,000 mg (120 mg-180 mg) capsule [...] Allergy Severe ANGIOEDEMA Verified 10/30/23 09:08 [From Jennifer] losartan AdvReac Severe Angioedema Verified 10/30/23 09:33 [...] % (Auto) 65.7 Lymph % (Auto) 19.4 [place] % (Auto) 11.2 H Eos % (Auto) [...] sinus rhythm with a rate of 88. MD interval, QRS interval, and QTc intervals were all normal. [place] was normal. There are nonspecific ST-T wave [...] hypertension, Chest pain Prescriptions: No Action omega 8-rkz-skc-fish oil [Fish Oil] 1,000 mg (120 mg-180 [...] Provider] - Disposition Disposition: Acute Care Hospital [facility] What to do if you have Problems For any increased pain, shortness of breath, bleeding, nausea or vomiting, chestpain, or any unexpected problems, contact your Primary Care Provider. Call [facility] ([phone]) or report to the closest Emergency Room. Call 911 if necessary. 12/04/23 0000 <Electronically signed by Jered Huff DO> Cosigner Signature (if applicable): CC: Dr. Nadir Grady MD ~ Signed [facility] Work Phone: 1(616) 457-985704-03-2024 History and physical note Author Gildardo Walton [facility] December 03, 2023 6:51pm Note Date/Time December 03, 2023 6:51 pm [facility] Medical Records Department [address] [place] [address] H&P Exam - Hospitalist 12/03/23 1826 MR#: [id number] Acct: [id number] Name: MICHAEL BATES Jr. Rep #:[id number] : 1955 68 From: Gildardo Escoto PCP: Dr. Nadir Grady MD Status:ADM JASON Location: [place] [address] HPI - General General Date of Admission: [...] sinus rhythm. Patient had 2 troponins negative. [facility] Medical History Atherosclerotic heart disease of solomon coronary artery without angina pectoris (10/10/23) Bilateral [...] health 09/13/13 [History Last Taken 02/11/22] omega 0-fqh-uht-fish oil 1,000 mg (120 mg-180 mg) capsule [...] Allergy Severe ANGIOEDEMA Verified 10/30/23 09:08 [From Jennifer] losartan AdvReac Severe Angioedema Verified 10/30/23 09:33 [...] % (Auto) 65.7, Lymph % (Auto) 19.4, [place]% (Auto) 11.2 H, Eos % (Auto) 1.9, [...] brother present in ED is power of attorney recruiter for health. After discussion of benefits/risks procedures involved with full code,DNR CC arrest and DNR CC, the patient opted for DNR CC arrest with no intubation Patient doesn't want artificial life support including intubation, tube feed, ventilator and/chest compression, central venous catheter, vasopressor and DC shock if needed Total time spent in dkjt-tk-yfkt encounter in discussion of advanced directive 17 minutes. Laboratory Results 12/03/23 14:50: WBC 4.6, RBC 3.83 L, Hgb 11.4 L, Hct 33.3 L, MCV 86.9, MCH 29.8,MCHC 34.2, RDW Std Deviation 39.1, RDW Coeff of Megan 12.3, Plt Count 189, MPV 9.2, Immature Gran % (Auto) 0.900, Neut % (Auto) 65.7, Lymph % (Auto) 19.4, [place]% (Auto) 11.2 H, Eos % (Auto) 1.9, [...] radiographic abnormalities. Charges/Coding Visit Charges Inpatient E&M: 33792 Init Hosp L3 Procedures Hospitalists Procedures: 68931 Advncd Care Plan 30 Min 12/03/23 1851 <Electronically signed by Gildardo Walton MD> Cosigner Signature (if applicable): CC: Dr. Nadir Grady MD; Dr. Gildardo Walton MD~ Signed [facility] Work Phone: 1(635) 724-381002-29-2024 Miscellaneous Notes* Addendum Note - Nadir Grady MD - 10/30/2023 2:08 PM ESTAddended by: NADIR GRADY on: 10/30/2023 02:08 PM Modules accepted: Orders documented in this encounterK[facility]02-29-2024 History of Present illness Narrative* Luis E Agudelo LPN - 10/30/2023 10:54 AM EST Scan on 10/30/2023 10:06 AM by ProviderSonido PA-C: Consultation - Cardiology documented in this encounterKettering [facility]02-23-2024 History of Present illness Narrative* Mynor Rasmussen LPN - 10/24/2023 10:16 AM EST Losartan 25mg dc'd (ordered by Cardiology) d/t angioedema. Allergy/ Med list updated. Scan on 10/23/2023 4:34 PM by ProviderSonido PA-C: Consultation - Emergency Medicine documented in this encounterKettering [facility]02-22-2024 History of Present illness Narrative* Luis E Agudelo LPN - 10/23/2023 2:18 PM EST Scan on 10/23/2023 10:14 AM by ProviderSonido PA-C: X-ray documented in this encounterKettering [facility]02-22-2024 History of Present illness Narrative* Ruthann Wadsworth [...] want to squad called. documented in this encounterKettering [facility]02-15-2024 History of Present illness Narrative* Luis E Agudelo LPN - 10/16/2023 8:12 AM EST Scan on 10/15/2023 1:30 PM by Sonido Lemon PA-C: Consultation - Emergency Medicine Scan on 10/15/2023 9:30 AM by Sonido Lemon PA-C: X-ray documented in this encounterKettering [facility]02-10-2024 Discharge summary Author Foster Mayberry [facility] October 11, 2023 11:30am Note Date/Time October 11, 2023 11:27am [facility] Medical Records Department [address] [place] [address] Instructions for Home/Discharge Instructions 10/11/23 1127 MR#: [id number] Acct: [id number] Name: PAULOMICHAEL Rep #:[id number] : 1955 68 From: [...] 30 Days Qty: 60 0RF Continued omega 4-atc-iwb-fish oil [Fish Oil] 1,000 mg (120 mg-180 [...] MD; Dr. Gildardo Walton MD ~ Signed [facility] Work Phone: 1(487) 432-777402-10-2024 Progress note Author Ez Hurst [facility] October 11, 2023 9:43am Note Date/Time October 11, 2023 9:43am [facility] Medical Records Department [address] [place] [address] Progress Note 10/11/23941 MR#: [id number] Acct: [id number] Name: MICHAEL BATES Jr. Rep #:[id number] : 1955 68 From: Ez Hurst MD PCP: Dr. Nadir Grady MD Status:ADM IN Location: [place] [address] Progress Note Denies any complaints. No angina. May discharge home from a cardiology standpoint. Follow-up with Dr. Kern in 2 to 4 weeks. Continue aspirin lifelong. Ticagrelor for at least 1 year. 10/11/23942 <Electronically signed by Ez Hurst MD> Ez Hurst MD Cosigner Signature (if applicable): CC: ~ Signed [facility] Work Phone: 1(948) 310-321002-10-2024 History of Present illness Narrative* Luis E Agudelo LPN - 10/11/2023 8:35 AM EST Scan on 10/10/2023 3:46 PM by Sonido Lemon PA-C: Consultation - Cardiology Scan on 10/10/2023 4:17 PM by Sonido Lemon PA-C: Cardiac Cath Scan on 10/10/2023 4:19 PM by Sonido Lemon PA-C: Echo documented in this encounterKettering [facility]02-09-2024 Progress note Author Foster Mayberry [facility] October 10, 2023 4:53pm Note Date/Time October 10, 2023 2 :51pm [facility] Medical Records Department [address] [place] [address] Progress Note - Hospitalist 10/10/23 1451 MR#: [id number] Acct: [id number] Name: MICHAEL BATES Jr. Rep #:[id number] : 1955 68 From: Foster Kristopher soni DO PCP: Dr. Nadir Grady MD Status:ADM IN Location: [place] [address] Reason for Visit Reason for Visit: Diagnoses [...] % (Auto) 63.1, Lymph % (Auto) 25.4, [place]% (Auto) 7.7, Eos % (Auto) 2.7, Baso [...] % (Auto) 61.8, Lymph % (Auto) 24.7, [place]% (Auto) 8.2, Eos % (Auto) 3.9, Baso [...] 18:53 EST Reading Location ID and State: [address] [address] Tel , Service support , Physical Exam [...] is a 68-year-old male who presented to [facility] ED on 10/09/2023 with worsening chest pain [...] 35 minutes. Charges/Coding Visit Charges Inpatient E&M: 85176 Subs Hosp L2 10/10/23 1653 <Electronically signed by Foster Mayberry DO> Cosigner Signature (if applicable): CC: ~ Signed [facility] Work Phone: [phone]) 156-478302-09-2024 Consult note Author Ez Hurst [facility] October 10, 2023 3:39pm Note Date/Time October 10, 2023 3 :39pm [facility] Medical Records Department [address] [place] [id number] Consultation - Cardiology 10/10/23 1534 MR#: [id number] Acct: [id number] Name: MICHAEL BATES Jr. Rep #:[id number] : 1955 68 From: Ez Hurst MD PCP: Dr. Nadir Grady MD Status:ADM IN Location: [place] [address] Assessment & Plan Assessment/Plan (1) Unstable angina: [...] gradually been getting worse. Rest pain yesterday. [facility] Medical History Atherosclerotic heart disease of solomon coronary artery without angina pectoris Bilateral carotid artery stenosis BPH (benign prostatic hyperplasia) COVID-19 (06/2021) DDD (degenerative disc disease) Elevated LFTs Essential (primary) hypertension Hyperlipidemia Sciatica Syncope (10/2021) Tremor of both hands Type 2 diabetes mellitus Home Medications aspirin 81 mg tablet,delayed release 81 mg PO DAILY@0800 [facility] 09/13/13 [History Last Taken 02/11/22] omega 5-zll-mli-fish oil 1,000 mg (120 mg-180 mg) capsule [...] Allergy Severe ANGIOEDEMA Verified 10/09/23 18:11 [From [facility]] perfume AdvReac Other Verified 10/09/23 18:11 Family [...] % (Auto) 63.1, Lymph % (Auto) 25.4, [place]% (Auto) 7.7, Eos % (Auto) 2.7, Baso [...] % (Auto) 61.8, Lymph % (Auto) 24.7, [place]% (Auto) 8.2, Eos % (Auto) 3.9, Baso [...] % (Auto) 63.1, Lymph % (Auto) 25.4, [place] % (Auto) 7.7, Eos % (Auto) 2.7, [...] % (Auto) 61.8, Lymph % (Auto) 24.7, [place] % (Auto) 8.2, Eos % (Auto) 3.9, [...] 18:53 EST Reading Location ID and State: [address] [place] [address] Tel , Service support , 10/10/23 1539 <Electronically signed by Ez Hurst MD> Cosigner Signature (if applicable): CC: Dr. Ez Hurst MD; Dr. Nadir Grady MD; Dr. Gildardo Walton MD~ Signed [facility] Work Phone: 1(195) 544-539202-09-2024 History of Present illness Narrative* Luis E Agudelo LPN - 10/10/2023 7:22 AM EST Scan on 10/09/2023 8:13 PM by Provider, External, PARiccardoC: Consultation - Emergency Medicine Scan on 10/09/2023 6:58 PM by ProviderSonido PA-C: X-ray Scan on 10/09/2023 9:13 PM by ProviderSonido PA-C documented in this encounterK[facility]02-08-2024 History and physical note Author Gildardo Walton [facility] October 09, 2023 9:01pm Note Date/Time October 09, 2023 8 :07pm [facility] Medical Records Department [address] [place] [address] H&P Exam - Hospitalist 10/09/232004 MR#: [id number] Acct: [id number] Name: MICHAEL BATES Jr. Rep #:[id number] : 1955 68 From: Gildardo Escoto PCP: Dr. Nadir Grady MD Status:ADM IN Location: [place] [id number] 1 HPI - General General Date of [...] x-ray reviewed and discussed assessment and plan. [facility] Medical History Atherosclerotic heart disease of solomon coronary artery without angina pectoris Bilateral carotid artery stenosis BPH (benign prostatic hyperplasia) COVID-19 (06/2021) DDD (degenerative disc disease) Elevated LFTs Essential (primary) hypertension Hyperlipidemia Sciatica Syncope (10/2021) Tremor of both hands Type 2 diabetes mellitus Home Medications aspirin 81 mg tablet,delayed release 81 mg PO DAILY@0800 [facility] 09/13/13 [History Last Taken 02/11/22] omega 9-sff-lri-fish oil 1,000 mg (120 mg-180 mg) capsule [...] Allergy Severe ANGIOEDEMA Verified 10/09/23 18:11 [From [facility]] perfume AdvReac Other Verified 10/09/23 18:11 Family [...] % (Auto) 63.1, Lymph % (Auto) 25.4, [place]% (Auto) 7.7, Eos % (Auto) 2.7, Baso [...] most likely unstable angina:Patient is being admitted [facility]. SHARRI risk score is 5 [...] in July 2020 reported EF normal with Wayan-normal. Stage I?oxygen. Bubble contrast today negative. Mild [...] advanced directive. His brother is power of attorney recruiter for health. After discussion of benefits/risks procedures involved with full code, DNR CC arrest and DNR CC, the patient opted for DNRCC arrest with no intubation. Patient brother is in agreement Patient doesn't want artificial life support including intubation, tube feed, ventilator and/chest compression, central venous catheter, vasopressor and DC shock if needed Total time spent in [id number]-yc-wcpp encounter in discussion of advanced directive 17 minutes. Laboratory Results 10/09/23 18:30: WBC 7.1, RBC 3.87 L, Hgb 11.5 L, Hct 35.0 L, MCV 90.4, MCH 29.7,MCHC 32.9, RDW Std Deviation 42.6, RDW Coeff of Megan 13.0, Plt Count 210, MPV 9.5, Immature Gran % (Auto) 0.400, Neut % (Auto) 63.1, Lymph % (Auto) 25.4, [place]% (Auto) 7.7, Eos % (Auto) 2.7, Baso [...] Odin Villaseñor MD at 18:53 EST , Charges/Coding Visit Charges Inpatient E&M: 21198 Init Hosp L3 Procedures Hospitalists Procedures: 69218 Advncd Care Plan 30 Min 10/09/232100 <Electronically signed by Gildardo Walton MD> Cosigner Signature (if applicable): CC: Dr. Nadir Grady MD; Dr. Gildardo Walton MD~ Signed [facility] Work Phone: 1(728) 199-125002-08-2024 Discharge summary Author Nicko Rabago [facility] October 09, 2023 8:05pm Note Date/Time October 09, 2023 6 :27pm [facility] Medical Records Department [address] [place] [address] Emergency Department Summary 10/09/23 MR#: [id number] Acct: [id number] Name: MICHAEL BATES Jr. Rep #:[id number] [...] had chest pain with his ranolazine before. [facility] Medical History Atherosclerotic heart disease of solomon coronary artery without angina pectoris Bilateral carotid artery stenosis BPH (benign prostatic hyperplasia) COVID-19 (06/2021) DDD (degenerative disc disease) Elevated LFTs Essential (primary) hypertension Hyperlipidemia Sciatica Syncope (10/2021) Tremor of both hands Type 2 diabetes mellitus Home Medications aspirin 81 mg tablet,delayed release 81 mg PO DAILY@0800 [facility] 09/13/13 [History Last Taken 02/11/22] omega 9-qza-ryr-fish oil 1,000 mg (120 mg-180 mg) capsule [...] Allergy Severe ANGIOEDEMA Verified 10/09/23 18:11 [From [facility]] perfume AdvReac Other Verified 10/09/23 18:11 Family [...] % (Auto) 63.1 Lymph % (Auto) 25.4 [place] % (Auto) 7.7 Eos % (Auto) 2.7 [...] 18:53 EST Reading Location ID and State: [facility] / [place] Tel , Service support , EKG Initial EKG: Comments: My independent interpretation of the patient's EKG done for chest pain shows a normal sinus rhythm with tachycardic rate at 105. No ventricular ectopy. No indication of acute ST elevation SC. However there is some very mild lateral ST depression that does look a little different than his prior EKG on 20 Jan 2023. There is some baseline variation also. But I believethere is a subtle difference. Management Discussion w/another healthcare provider: Hospitalist and Glassworker Discharge Plan Triage Chief Complaint: Chest Pain ED Provider: Nicko Rabago Dx/Rx/DC Orders Clinical Impression: Hx of diabetes insipidus, Angina at rest, Acute electrocardiogram changes, History of CAD (coronary artery disease), Chest pain Prescriptions: No Action omega 5-mhl-neb-fish oil [Fish Oil] 1,000 mg (120 mg-180 [...] Provider] - Disposition Disposition: Acute Care Hospital [facility] What to do if you have Problems For any increased pain, shortness of breath, bleeding, nausea or vomiting, chestpain, or any unexpected problems, contact your Primary Care Provider. Call [facility] ([phone]) or report to the closest Emergency Room. Call 911 if necessary. 10/09/232004 <Electronically signed by Nicko Rabago MD> Cosigner Signature (if applicable): CC: Dr. Nadir Grady MD ~ Signed [facility] Work Phone: 1([phone]) 105-531502-08-2024 Discharge [facility] October 09, 2023 8:05pm Note Date/Time October 09, 2023 6 :27pm [facility] Medical Records Department [address] [place] [address] Emergency Department Summary 10/09/23 MR#: [id number] Acct: [id number] Name: MICHAEL BATES Jr. Rep #:[id number] [...] had chest pain with his ranolazine before. [facility] Medical History Atherosclerotic heart disease of solomon coronary artery without angina pectoris Bilateral carotid artery stenosis BPH (benign prostatic hyperplasia) COVID-19 (06/2021) DDD (degenerative disc disease) Elevated LFTs Essential (primary) hypertension Hyperlipidemia Sciatica Syncope (10/2021) Tremor of both hands Type 2 diabetes mellitus Home Medications aspirin 81 mg tablet,delayed release 81 mg PO DAILY@0800 [facility] 09/13/13 [History Last Taken 02/11/22] omega 3-qoh-rcv-fish oil 1,000 mg (120 mg-180 mg) capsule [...] Allergy Severe ANGIOEDEMA Verified 10/09/23 18:11 [From [facility]] perfume AdvReac Other Verified 10/09/23 18:11 Family [...] I discussed the case with Dr. Aris on for cardiology. I discussed case with hospitalist. [...] % (Auto) 63.1 Lymph % (Auto) 25.4 [place] % (Auto) 7.7 Eos % (Auto) 2.7 [...] 18:53 EST Reading Location ID and State: [address] [address] Tel , Service support , EKG Initial EKG: Comments: My independent interpretation of the patient's EKG done for chest pain shows a normal sinus rhythm with tachycardic rate at 105. No ventricular ectopy. No indication of acute ST elevation SC. However there is some very mild lateral ST depression that does look a little different than his prior EKG on 20 Jan 2023. There is some baseline variation also. But I believethere is a subtle difference. Management Discussion w/another healthcare provider: Hospitalist and Glassworker Discharge Plan Triage Chief Complaint: Chest Pain ED Provider: Nicko Rabago Dx/Rx/DC Orders Clinical Impression: Hx of diabetes insipidus, Angina at rest, Acute electrocardiogram changes, History of CAD (coronary artery disease), Chest pain Prescriptions: No Action omega 1-fzi-sqd-fish oil [Fish Oil] 1,000 mg (120 mg-180 [...] Provider] - Disposition Disposition: Acute Care Hospital [facility] What to do if you have Problems For any increased pain, shortness of breath, bleeding, nausea or vomiting, chestpain, or any unexpected problems, contact your Primary Care Provider. Call [facility] ([phone]) or report to the closest Emergency Room. Call 911 if necessary. 10/09/232004 <Electronically signed by Nicko Rabago MD> Cosigner Signature (if applicable): CC: Dr. Nadir Grady MD ~ Signed [facility] Work Phone: 1(426) 286-633102-01-2024 Evaluation note* Diagnosis Onset Date Resolution Status Acute electrocardiogram changes resolved Angina at rest resolved Chest pain resolved Unstable angina resolved Atherosclerotic heart diseas e of solomon coronary artery without angina pectoris October 10, 2023 chronic Bilateral carotid artery stenosis chronic Hypotension chronic Syncope October, chronic [facility] Work Phone: [phone]) 822-830402-01-2024 Evaluation note* Diagnosis Onset Date Resolution Status Acute electrocardiogram changes resolved Angina at rest resolved Chest pain resolved Unstable angina resolved Atherosclerotic heart diseas e of solomon coronary artery without angina pectoris October 10, 2023 chronic Bilateral carotid artery stenosis chronic Hypotension chronic Syncope October, chronic Chest pain acute Chest pain, atypical acute Essential (primary) hypertension [facility] Work Phone: 1(238) 276-561802-01-2024 Evaluation note* Diagnosis Onset Date Resolution Status Acute electrocardiogram changes resolved Angina at rest resolved Chest pain resolved Unstable angina resolved Atherosclerotic heart diseas e of solomon coronary artery without angina pectoris October 10, 2023 chronic Bilateral carotid artery stenosis chronic Hypotension chronic Syncope October, chronic Chest pain resolved Chest pain, atypical resolve d Atherosclerotic heart diseas e of solomon coronary artery without angina pectoris October 10, 2023 chronic Bilateral carotid artery stenosis chronic Hypotension chronic Syncope October, [facility] Work Phone: 1([phone]) 265-857610-26-2023 Miscellaneous Notes* Telephone Encounter - Karla Wadsworth MA - 06/26/2023 3:14 PM EDT Contacted patient and let him that [facility] prescribes the medication. Karla Wadsworth MA * Telephone Encounter - Yolanda Brower - 06/26/2023 9:44 AM EDT Patient has been identified by name and date of : Yes, Provider Nadir Grady Date 06/26/23 Time 9:45 Patient phones for refill(s): Requested Prescriptions Pending Prescriptions Disp Refills clopidogrel (PLAVIX) 75 mg tablet 30 tablet 11 Sig: Take 1 tablet by mouth once daily. Managed by [facility] Date of last office visit in primary care: 06/17/2023 Date of next office visit in primary care: Visit date not found Last 2 Encounter Wt Readings: Date: Wt: 06/26/2023 84.5 kg (186 lb 3.2 oz) 06/17/2023 85.7 kg (189 lb) Previous labs/tests for medication: Not applicable Please advise. Thank you. Yolanda Brower. documented in this encounterKettering [facility]10-26-2023 Miscellaneous Notes* Telephone Encounter - Cody Blue RN - 06/26/2023 2:59 PM EDT Pt called and is notified of providers message and instructions. Pt voices understanding. Cody Blue RN * Telephone Encounter - Nadir [...] 125mg Augmentin, please advise documented in this encounterKettering Health [facility]burg10-26-2023 History of Present illness Narrative* Fer Merrill APRN.THERMITE BOMB LOADER - 06/26/2023 9:40 AM EDT Images from [...] Date 2D ECHO (EXEP) 01/16/2017 EF=60%, 1+ SC and TI CATARACT EXTRACTION HX Left 10/2019 [...] dysplasia, repeat in 2 years EGD W/O [facility] SPEC VARICIES INJ 10/14/2022 FECAL OCCULT BLOOD [...] tablet by mouth once daily. Managed by [facility] omega-3 fatty acids 1,000 mg [...] and atraumatic. Nose: Nose normal. Mouth/Throat: Lips: [place]. Mouth: Mucous membranes are moist. Pulmonary: Effort: [...] NYSTATIN 100,000 UNIT/ML ORAL SUSPENSION Fer Merrill APRN.THERMITE BOMB LOADER documented in this encounterKettering Health [facility]burg10-19-2023 History of Present illness Narrative* Odin Reyes MD - 06/19/2023 12:32 PM EDT [facility] Care Triage Note: Patient presents to the [facility] care with complaint of sinus pain and shortness of breath. He is a little worse than when seen and treated by Family Medicine 2 days ago. The patient was triaged and determined that he could be further evaluated in the [facility] Care, but he left before being roomed. documented in this encounterKettering Health [facility]burg10-19-2023 Miscellaneous Notes* Telephone Encounter - Meg Miller Cma - 06/19/2023 9:28 AM EDT Patient notified and verbalized understanding Meg Miller Cma * Telephone Encounter - Franny Catalan APRN.CNP - 06/19/2023 9:02 AM EDT Please let patient know his labs show improvement in his hgb a1c and the rest of his labs are stable. documented in this encounterKettering Health [facility]09-15-2023 History of Present illness Narrative* Luis E Agudelo LPN - 05/16/2023 9:06 AM EDT Scan on 05/15/2023 9:35 AM by Provider, HOANG Head: Consultation - Cardiology documented in this [facility]08-04-2023 Miscellaneous Notes* Telephone Encounter - Daniella Whiteside LPN - 04/04/2023 6:36 PM EDT Patient notified.Daniella Whiteside LPN * Telephone Encounter - Fer Merrill APRN.CNP - 04/04/2023 6:12 PM EDT Please notify that testing showed no fungus at 3 days. Will call if becomes positive. documented in this [facility]08-03-2023 Miscellaneous Notes* Telephone Encounter - Hodan Menard MA - 04/03/2023 7:16 AM EDT Pt was notified of the results. Pt verbalized understanding. Hodan Menard MA * Telephone Encounter - Ruthann Wadsworth APRN.CNP - 04/02/2023 7:52 PM EDT No fungal growth after 1 day will continue to grow culture and if anything comes back positive we will call patient. documented in this encounterKettering [facility]08-01-2023 Miscellaneous Notes* Telephone Encounter - Geno Perez [...] and advise. Tato Isidro documented in this encounterKettering Health [facility]08-01-2023 History of Present illness Narrative* Blanca Lee PA-C - 04/01/2023 8:01 AM EDT This note was created using [employer] Media Companyriter. Subjective Michael Bates is a 68 year [...] tongue. Has a history of angioedema to [facility]. Not on any PANFILO inhibitors. He did start taking an gwvi-odc-zmcwqxd zinc supplement 3 weeks ago. He had [...] tablet by mouth once daily. Managed by [facility] tablet 11 omega-3 fatty acids [...] Date 2D ECHO (EXEP) 01/16/2017 EF=60%, 1+ SC and TI CATARACT EXTRACTION HX Left 10/2019 [...] CULTURE Blanca Lee PA-C documented in this encounterKettering Health [facility]07-10-2023 Instructions* Patient Instructions* Ute Shine APRN.THERMITE BOMB LOADER - 03/10/2023 12:56 PM EDT Start Triamcinolone 0.1% ointment twice daily for itch May use OTC benadryl or zyrtec as needed for itching Keep rash clean and dry. Allow to dry out. documented in this encounterKettering Health [facility]07-10-2023 History of Present illness Narrative* Ute Shine APRN.CNP - 03/10/2023 12:43 PM EDT Images from the original note were not included. Subjective The history is provided by the patient. No furnace combination analyst was used. 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 Ute Shine APRN.MIGEL documented in this encounterKettering Health [facility]06-26-2023 Miscellaneous Notes* Telephone Encounter - Luis E [...] Luis E Agudelo LPN documented in this encounterKettering Health [facility]06-06-2023 Miscellaneous Notes* Telephone Encounter - Lisa Rabago [...] to refill Lorazepam $ documented in this encounterKettering Health [facility]05-09-2023 Miscellaneous Notes* Telephone Encounter - Luis E [...] and advise. JASE Jin documented in this encounterKettering Health [facility]burg03-31-2023 Miscellaneous Notes* Telephone Encounter - Martha Boston [...] to increasing Actos to 45mg. Prefers [facility] in [place]. Please advise. Thank you. CALLIE Rodriguez * Telephone Encounter - Martha Boston PA-C - 11/29/2022 11:02 AM EDT Let patient know that his a1c is 7.7%. I would like to see this under 7.5%. is he willing to increase actos to 45mg? His cholesterol was normal. PSA level is a little elevated. Recheck in 1 month. Blood counts are stable. documented in this encounterKettering Health [facility]03-30-2023 History of Present illness Narrative* Martha Boston [...] Multi level, worse L2-L3 Diabetes ([facility]) Diabetic eye exam ([facility]) 03/19/2017 Last done: 10/01/2018 Elevated LFTs 08/05/2015 [...] Date 2D ECHO (EXEP) 01/16/2017 EF=60%, 1+ SC and TI CATARACT EXTRACTION HX Left 10/2019 [...] F) Resp 16 Ht 175 cm (5' 8.9") Wt 78.5 kg (173 lb) BMI 25.62 [...] Diabetes (HCC) Diabetic eye exam ([facility]) 03/19/2017 Last done: 10/01/2018 Elevated LFTs 08/05/2015 [...] Date 2D ECHO (EXEP) 01/16/2017 EF=60%, 1+ SC and TI CATARACT EXTRACTION HX Left 10/2019 [...] [facility] 10/14/2022 FECAL OCCULT BLOOD [...] tablet by mouth once daily. Managed by [facility] omega-3 fatty acids 1,000 mg [...] F) Resp 16 Ht 175 cm (5' 8.9") Wt 78.5 kg (173 lb) BMI 25.62 [...] which included preparing to see the patient, [id number]-[id number] patient care, completing clinical documentation, obtaining and/or reviewing separately obtained history, performing a medically appropriate examination, counseling and educating the pat ient/family/caregiver, ordering medications, tests, or procedures, communicating with other HCPs (not separately reported), and communicating results to the patient/family/caregiver. documented in this encounterKet[facility]03-23-2023 Instructions* Patient Instructions* Jenna Jim APRN.CNP - [...] that time) of gabapentin. documented in this encounterKettering Health [facility]03-23-2023 History of Present illness Narrative* Jenna Jim APRN.CNP - 11/21/2022 10:00 AM EDT Images from the original note were not included. [facility] [place] Follow-up Visit Follow-up note November 21, 2022 [...] Multi level, worse L2-L3 Diabetes ([facility]) Diabetic eye exam ([facility]) 03/19/2017 Last done: 10/01/2018 Elevated LFTs 08/05/2015 [...] Date 2D ECHO (EXEP) 01/16/2017 EF=60%, 1+ SC and TI CATARACT EXTRACTION HX Left 10/2019 [...] tablet by mouth once daily. Managed by [facility] omega-3 fatty acids 1,000 mg [...] DATE OF EXAM: Apr 05 2022 2:00PM [facility] - CT BRAIN WO IVCON / [...] base and imaged soft tissues are unremarkable. Agricultural Education Professor (topogram) images: No acute findings Impression: IMPRESSION: No significant change. No acute intracranial process Storage Consultant: FAWN Transcribe Date/Time: Apr 05 2022 2:06P [...] of previous appointment gabapentin dose was decreased [id number] to determine if there was a [...] which included preparing to see the patient, daof-iu-psof patient care, completing clinical documentation, obtaining and/or reviewing separately obtained history, performing a medically appropriate examination, counseling and educating the pat ient/family/caregiver, and ordering medications, tests, or procedures. documented in this encounterKettering Health [facility]03-16-2023 Miscellaneous Notes* Telephone Encounter - Tana Currie - 11/14/2022 12:[address] consult for [facility].. * Telephone Encounter - CALLIE Rodriguez - 11/08/2022 9:41 AM EST In provider review of patient appointment, patient needs to be re-scheduled with the [facility]. Pt has been seen by three general neurologists and due to the overall concerns, provider believes [facility] will be more beneficial to patient. TC to patient who is advised of the above and is agreeable to see brain [facility]. Please contact patient and assist with scheduling with [facility]. Thank you. CALLIE Rodriguez documented in this encounterKettering Health Mi[facility]burg03-14-2023 History of Present illness Narrative* Fer Merrill APRN.THERMITE BOMB LOADER - 11/12/2022 11:44 AM EDT Subjective HPI [...] Date 2D ECHO (EXEP) 01/16/2017 EF=60%, 1+ SC and TI CATARACT EXTRACTION HX Left 10/2019 [...] tablet by mouth once daily. Managed by [facility] omega-3 fatty acids 1,000 mg [...] TABLETS IN A DOSE PACK Fer Merrill APRN.THERMITE BOMB LOADER documented in this encounterKettering Health [facility]burg03-07-2023 Miscellaneous Notes* Telephone Encounter - Beverly Rawls RN - 11/05/2022 9:55 AM EST Last Office Visit: 10/24/2022 Future Office Visit: 11/19/2022 Requested Prescriptions Pending Prescriptions Disp Refills ferrous sulfate 325 mg (65 mg iron) tablet 60 tablet 1 Sig: Take 1 tablet by mouth twice daily with meals. Date of Last Labs: 08/21/2022 documented in this encounterKettering Health Miamisburg02-28-2023 Instructions* Patient Instructions* Cody Pavon PA-C - 10/29/2022 4:38 PM EST -Continue PPI long-term -Repeat EGD in 2 years for surveillance The following instructions are important for you related to your office visit today with the [facility]. INSTRUCTIONS FOLLOWING A NORMAL COLONOSCOPY [...] you should contact our office immediately @ [phone] and ask to be transferred to the General Surgery department. documented in this encounterKettering Health Miamisburg02-28-2023 History of Present illness Narrative* Cody Pavon PA-C - 10/29/2022 3:59 PM EST FOLLOW UP VISIT - ENDOSCOPY NAME: Michael [facility] NO.: [id number] DATE OF SERVICE: 10/29/2022 : 1955 REFERRING [...] in one cassette. Gross examination performed at [facility], [address] [place] [address] 10/14/2022 8:25 PM Performing Lab Diagnostic interpretation performed at [facility], [address] [place] [address] CLIA# [id number] Airframe Design Engineer: Olayinka Paz M.D. Addendum Addendum is issued to reflect the result of immunohistochemical stain: - Immunostain for H. pylori is negative in part A. The patient notes no complaints since the procedure. VITALS: Blood pressure 124/64, pulse 82, temperature 36.6 C (97.9 F), height 177.8 cm (5' 10"), weight 81.2 kg (179 lb), SpO2 96 [...] which included preparing to see the patient, kqji-xl-waap patient care, completing clinical documentation, obtaining and/or reviewing separately obtained history, counseling and educating the patient/family/caregiver, independently interpretin g results (not separately reported), and communicating results to the patient/family/caregiver. Cody Pavon PA-C documented in this encounterKettering Health [facility]02-22-2023 History of Present illness Narrative* Karla Wadsworth MA - 10/23/2022 4:25 PM EST Scan on 10/23/2022 10:26 AM by External Provider: Consultation - Cardiology Please review. Karla Wadsworth MA documented in this encounterKettering Health Miamisburg02-13-2023 History and physical note * Thai Santiago [...] Multi level, worse L2-L3 Diabetes ([facility]) Diabetic eye exam ([facility]) 03/19/2017 Last done: 10/01/2018 Elevated LFTs 08/05/2015 [...] Date 2D ECHO (EXEP) 01/16/2017 EF=60%, 1+ SC and TI CATARACT EXTRACTION HX Left 10/2019 [...] tablet by mouth once daily. Managed by [facility] omega-3 fatty acids 1,000 mg [...] entered by the nurse and reviewed by ma Nursing Notes: Yovanny Thacker LPN 06/27/2022 9:31 [...] C (97.4 F), height 177.8 cm (5' 10"), weight 71.7 kg (158 lb), SpO2 97 [...] completed. Thai Santiago MD documented in this encounterKettering Health [facility]02-04-2023 History of Present illness Narrative* Nadir Grady [...] per cardio his FBS have ranged 130's-160. [place] hrs post meals have been in the [...] Date 2D ECHO (EXEP) 01/16/2017 EF=60%, 1+ SC and TI CATARACT EXTRACTION HX Left 10/2019 [...] tablet by mouth once daily. Managed by [facility] omega-3 fatty acids 1,000 mg cap [...] issues. Nadir Grady MD documented in this encounterKettering Health [facility]02-01-2023 Miscellaneous Notes* Telephone Encounter - Nadir Grady MD - 10/02/2022 9:29 AM EST The following approved medication requests have been transmitted electronically. Requested Prescriptions Signed Prescriptions Disp Refills pioglitazone (ACTOS) 30 mg tablet 90 tablet 1 Sig: Take 1 tablet by mouth once daily. Authorizing Provider: NADIR GRADY MD * Telephone Encounter - Abdirahman Duong RN - 10/02/2022 9:22 AM EST Brannon- [facility] reports she informed patient and sister, [...] sent to DDM. Pended. documented in this encounterKettering Health [facility]01-24-2023 Miscellaneous Notes* Telephone Encounter - Cody Blue RN - 09/24/2022 10:50 AM EST Brannon Matilde-[facility] CCN called and is notified of providers message and instructions. She voices understanding and states she will review that with the Pt. Cody Blue RN * Telephone Encounter - Nadir [...] LPN - 09/24/2022 10:04 AM EST Brannon De Paznes with [facility] calls to report they take care of setting up pt's meds. Today pt reported to Brannon that Actos was stopped. Brannon is asking pcp if medication has been discontinued and if there is documentation concerning this could it please be faxed to: [phone]. Can call Brannon @ [phone]. Actos is currently on pt's med chart. Aaliyah Horner LPN documented in this encounterKettering Health [facility]01-23-2023 Instructions* Patient Instructions* Jenna Jim APRN.MIGEL - 09/23/2022 3:05 PM [...] rates and better stamina. documented in this encounterKettering Health Mi[facility]burg01-23-2023 Instructions* Patient Instructions* Miladys Butt APRN.MIGEL - 09/23/2022 2:26 PM EST ASSESSMENT/PLAN: 1. Foot injury, left, initial encounter - ICD9: 959.7, ICD10: S99.922A - XR FOOT GENERAL 3V AP/LAT/OBL LEFT Radiologist IMPRESSION: No radiographic evidence of acute osseous injury. Storage Consultant: FAWN Transcribe Date/Time: Sep 23 2022 1:46P [...] illness Miladys Butt APRN.MIGEL documented in this encounterKettering Health [facility]01-23-2023 History of Present illness Narrative* Miladys Butt APRN.MIGEL - 09/23/2022 1:34 PM EST Images from [...] Dr. Duque Chronic sinusitis Claudication ([facility]) 06/04/2017 PVR's normal. Coronary atherosclerosis due to lipid rich plaque 01/20/[address] Kern. s/p RODDY to Ramus and RODDY to LAD placed 01/20/2017. COVID-19 virus infection 06/18/202106/2021 DDD (degenerative disc disease), cervical 01/20/2012 DDD (degenerative disc disease), lumbar 06/30/2016 Multi level, worse L2-L3 Diabetes ([facility]) Diabetic eye exam ([facility]) 03/19/2017 Last done: 10/01/2018 Elevated LFTs 08/05/2015 [...] Date 2D ECHO (EXEP) 01/16/2017 EF=60%, 1+ SC and TI CATARACT EXTRACTION HX Left 10/2019 [...] tablet by mouth once daily. Managed by [facility] omega-3 fatty acids 1,000 mg [...] No radiographic evidence of acute osseous injury. Storage Consultant: FAWN Transcribe Date/Time: Sep 23 2022 1:46P Dictated by : PHYLLIS TORRES MD - Follow-up with your PCP in 3-5 days if symptoms have not improved or sooner if symptoms worsen - Discussed red flags and need for immediate medical evaluation if any occur. - Discussed supportive care treatment with fluids, rest and analgesia. - Discussed expected course of illness Miladys Butt APRN.THERMITE BOMB LOADER documented in this encounterKettering Health [facility]01-23-2023 History of Present illness Narrative* Chaz Pastor [...] 23, 2022 1:33 PM documented in this encounterKettering Health [facility]01-19-2023 History of Present illness Narrative* Jenna Jim APRN.CNP - 09/19/2022 3:30 PM EST Images from the original note were not included. [facility] [place] Follow-up Visit Follow-up note September 19, 2022 [...] Friday. 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 Previously noted to have low blood pressure [...] as well. Saw neurology earlier today at [facility]. Per [facility] Dr. العلي at appointment earlier today (09/19/22): [...] of multiple head injury. Saw neurology is [facility] - orthostatic - med SE, no overt [...] autonomic clinic. Balaji Gagnon 04/25/22: Balaji Gagnon THERMITE BOMB LOADER on 04/25/22: IMPRESSION/PLAN: Michael Bates is a [...] would be difficulty to go to our [place] location to complete. Medications can also be [...] muscles. States he did pass out in cheondoism four weeks ago. Tremors intermittently in hands. [...] Diabetes (HCC) Diabetic eye exam ([facility]) 03/19/2017 Last done: 10/01/2018 Elevated LFTs 08/05/2015 [...] Date 2D ECHO (EXEP) 01/16/2017 EF=60%, 1+ SC and TI CATARACT EXTRACTION HX Left 10/2019 [...] tablet by mouth once daily. Managed by [facility] omega-3 fatty acids 1,000 mg [...] DATE OF EXAM: Apr 05 2022 2:00PM [facility] - CT BRAIN WO IVCON / [...] base and imaged soft tissues are unremarkable. Agricultural Education Professor (topogram) images: No acute findings Impression: IMPRESSION: No significant change. No acute intracranial process Storage Consultant: PSCB Transcribe Date/Time: Apr 05 2022 2:06P [...] prior to starting new medication. Jenna Jim APRN.THERMITE BOMB LOADER I spent a total of 50+ minutes on the date of the service which included preparing to see the patient, tckr-wv-lend patient care, completing clinical documentation, obtaining and/or reviewing separately obtained history, performing a medically appropriate examination, counseling and educating the pa tient/family/caregiver, ordering medications, tests, or procedures, and communicating with other HCPs (not separately reported). documented in this encounterKettering Health [facility]01-05-2023 Miscellaneous Notes* Telephone Encounter - Cody Blue RN - 09/05/2022 3:16 PM EST Pt called and is notified of providers message and instructions. Pt voices understanding. 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 * Telephone Encounter - Krala Wadsworth MA - 09/05/2022 1:32 PM EST Patient indicated that he never got the medication from the pharmacy only the Iron supplement. Please see attached note as to why he stopped. August 28 Brannon SAHNI from [facility] calls to report that patient had [...] is not why? With [facility] [place] this should of been less than $8. [...] pt. Selma Echevarria LPN documented in this encounterKettering Health [facility]burg12-30-2022 Miscellaneous Notes* Telephone Encounter - Karla Wadsworth [...] and advise. Liza Hood documented in this encounterKettering Health Miamisburg12-28-2022 Miscellaneous Notes* Telephone Encounter - Martha Boston PA-C - 08/28/2022 9:58 AM EST Noted. * Telephone Encounter - Beverly Rawls RN - 08/28/2022 9:12 AM EST Brannon SAHNI from [facility] calls to report that patient had taken pseudoephedrine and patient became dizzy,couldn't stand, and couldn't stay awake. Patient has not taken this medication anymore. Patient also requested office visit notes to be faxed to [phone]. Faxed as requested. Beverly Rawls RN documented in this encounterKettering Health [facility]burg12-22-2022 Miscellaneous Notes* Telephone Encounter - Nadir Grady MD - 08/22/2022 9:34 AM EST Noted. * Telephone Encounter - Karla Wadsworth MA - 08/22/2022 9:20 AM EST Spoke with Michael and gave Dr. Grady recommendations. He said he would think about it and let us know. I patient I would send the name of the medication via [facility]. Karla Wadsworth MA * Telephone Encounter - Nadir Grady MD - 08/22/2022 9:08 AM EST Let Michael know I did some looking into alternate treatments for esophageal spasms. There is a med called hyoscyamine that he would take three times a day and it will not affect BP. If interested I will send in script to [facility]. documented in this encounterKettering Health [facility]12-22-2022 Miscellaneous Notes* Telephone Encounter - CALLIE Rodriguez [...] Cont the iron medication. documented in this encounterKettering Health [facility]amisburg12-21-2022 Instructions* Patient Instructions* Nadir Grady MD - [...] to be below 180. documented in this encounterKettering Health Miamisburg12-21-2022 History of Present illness Narrative* Nadir Grady [...] will be seeing Neurology in September in [place] for eval also. Patient's BS's have been [...] Multi level, worse L2-L3 Diabetes ([facility]) Diabetic eye exam ([facility]) 03/19/2017 Last done: 10/01/2018 Elevated LFTs 08/05/2015 [...] Date 2D ECHO (EXEP) 01/16/2017 EF=60%, 1+ SC and TI CATARACT EXTRACTION HX Left 10/2019 [...] tablet by mouth once daily. Managed by [facility] omega-3 fatty acids 1,000 mg [...] which included preparing to see the patient, gkqn-ay-buju patient care, completing clinical documentation, performing a medically appropriate examination, counseling and educating the patient/family/caregiver and ordering medications, tests, or procedures. Nadir Grady MD documented in this encounterKettering Health [facility]12-07-2022 Miscellaneous Notes* Telephone Encounter - Nadir Grady [...] notify patient. Veena Currie documented in this encounterKettering Health Miamisburg12-05-2022 Nurse Note* Keith Rawls Ma - 08/05/2022 [...] resp. rate 18, height 177.8 cm (5' 10"), weight 77.1 kg (170 lb). Current pain [...] Nurse: Keith Rawls Ma documented in this encounterKettering Health [facility]burg12-05-2022 History of Present illness Narrative* Mike Lucero MD - 08/05/2022 12:51 PM EST [facility] [place] CYSTOSCOPY PROCEDURE NOTE: Michael Bates is a 67 year old male who presents with BPH for cystoscopy. Pt ID verified with patient: Yes Procedure verified with patient: Yes Procedure confirmed with physician and logistics support: Yes UNIVERSAL PROTOCOL / SAFETY CHECKLIST Procedure [...] PRN Mike Lucero MD documented in this encounterKettering Health Miamisburg11-29-2022 History of Present illness Narrative* Franny Catalan APRN.[facility] - 07/30/2022 3:38 PM EST Chief Complaint Coldness in chest HPI Michael Bates is a 67 year old male who presents here today for Above Complaints.. Patient reports feeling "coldness" in chest. Patient states it is intermittent [...] Diabetes (HCC) Diabetic eye exam ([facility]) 03/19/2017 Last done: 10/01/2018 Elevated LFTs 08/05/2015 [...] Date 2D ECHO (EXEP) 01/16/2017 EF=60%, 1+ SC and TI CATARACT EXTRACTION HX Left 10/2019 [...] NEUROLOGY Franny Catalan APRN.MIGEL documented in this encounterKettering Health Miamisburg11-28-2022 Miscellaneous Notes* Telephone Encounter - Karla Wadsworth MA - 07/29/2022 4:25 PM EST Patient rescheduled. Karla Wadsworth MA * Telephone Encounter - Aaliyah Horner LPN - 07/29/2022 2:41 PM EST Pt's POA Frida called in for an appt. Frida had hung up phone while appt was being scheduled with Franny Catalan CNP for 07/30 @ 9:00 am. Appt was taken by another telegraph plant maintainer. Message left on Frida's vm to call back to reschedule appt. Aaliyah Horner LPN documented in this encounterKettering Health Miamisburg11-11-2022 Miscellaneous Notes* Telephone Encounter - Ramez Hagen RN - 07/12/2022 9:59 AM EST Called patient's POA and she confirmed the appointment on 08/05 documented in this encounterKettering Health [facility]burg11-10-2022 Miscellaneous Notes* Telephone Encounter - Karla Wadsworth [...] supplement. Martha Boston PA-C documented in this encounterKettering Health [facility]burg11-09-2022 Miscellaneous Notes* Telephone Encounter - Martha Boston [...] the patient's POA. I attempted to contact [facility] but had to leave a VM of the patient's information and request for appointment. The patient's POA understood that aVM had been left and that [facility] scheduling will reach out. She was provided the phone number to [facility]. documented in this encounterKettering Health [facility]burg11-09-2022 Miscellaneous Notes* Telephone Encounter - Luis E [...] of CT scan fax[facility]. Luis E Agudelo LPN * Telephone Encounter - Martha Boston PA-C - 07/10/2022 11:22 AM EST Let patient know that CT abd scan shows mild bladder wall thickening which is of uncertain nature and I would like him to see urology for this. CT shows coronary artery calcifications. Will just forward result to his cardiology ([facility]) as a FYI only. Given that he recently had a heart cath, not much more that they will likely recommend. Martha Boston PA-C documented in this encounterKettering Health Miamisburg11-08-2022 History of Present illness Narrative* Fiona MachucaElzbieta, RT(R) - 07/09/2022 10:40 AM EST Radiology [...] 2022 TIME: 12:12 PM documented in this encounterKettering Health [facility]burg11-04-2022 Miscellaneous Notes* Telephone Encounter - Luis E Agudelo LPN - 07/05/2022 12:30 PM EDT Spoke with pt and reviewed Martha's message. Pt verbalizes understanding. Luis E Agudelo LPN * Telephone Encounter - Martha Boston PA-C - 07/05/2022 11:36 AM EDT Let patient know that this was prescribed for short term use only. I did not have plans to keep himon this daily or detention. This was discussed with him. I will [...] 10/2022 Last refill: 05/2022 documented in this encounterKettering Health [facility]burg11-01-2022 Miscellaneous Notes* Telephone Encounter - Luis E [...] metformin. Martha Boston PA-C documented in this encounterKettering Health Miamisburg11-01-2022 History of Present illness Narrative* Thai Santiago [...] Date 2D ECHO (EXEP) 01/16/2017 EF=60%, 1+ SC and TI CATARACT EXTRACTION HX Left 10/2019 [...] nurse and reviewed by me Nursing Notes: Yovanny KedarKAITLYN 06/27/2022 9:31 AM Signed REVIEW OF SYSTEMS: [...] C (97.4 F), height 177.8 cm (5' 10"), weight 71.7 kg (158 lb), SpO2 97 [...] completed. Thai Santiago MD documented in this encounterKettering Health Miamisburg10-31-2022 History of Present illness Narrative* Karin Hamilton [...] 01, 2022 9:02 AM documented in this encounterKettering Health Miamisburg10-27-2022 Miscellaneous Notes* Telephone Encounter - Luis E Agudelo LPN - 06/27/2022 11:13 AM EDT Spoke with pt and advised of Martha's message and instructions. Pt verbalizes understanding. Pt also aware this nurse had given this message to Frida as well. Luis E Agudelo LPN * Telephone Encounter - Luis E Agudelo LPN - 06/27/2022 9:51 AM EDT Advised pt's erlmos-wa-ocl Frida of Martha's message and instructions. She [...] month. Martha Boston PA-C documented in this encounterKettering Health Miamisburg10-27-2022 Instructions* Patient Instructions* Thai Santiago MD - [...] If you do not have a responsible corrugated fastener driver (family member or friend) with you [...] until midnight. 2 08/2019 documented in this encounterKettering Health Miamisburg10-27-2022 Nurse Note* Yovanny Thacker, BOILER RIVETER - 06/27/2022 9:27 AM EDT REVIEW OF [...] none Yovanny Thacker LPN documented in this encounterKettering Health Miamisburg10-26-2022 Miscellaneous Notes* Telephone Encounter - Cody Blue RN - 06/26/2022 3:04 PM EDT Pt called and is notified of providers message and instructions. Pt voices understanding. Cody Blue RN * Telephone Encounter - Nadir [...] glucometer, lancets & test strips to [facility], pending. Beulah Wright LPN * Telephone Encounter [...] PM EDT Noted. When is next time [facility] network coming out to check? Martha Boston PA-C The following approved medication requests have been transmitted electronically. Requested Prescriptions Signed Prescriptions Disp Refills glimepiride (AMARYL) 2 mg tablet 30 tablet 5 Sig: Take 1 tablet by mouth daily with breakfast. Authorizing Provider: MARTHA BOSTON PA-C * Telephone Encounter - Cody Blue RN - 06/26/2022 1:13 PM EDT Cody at [facility] was called and given providers information. She requested last OV notes be faxed over for Dr Kern to see. She states they will call back once he has looked at them and made any decisions. Faxed last OV note to [phone]. * Telephone Encounter - Cody Blue RN - 06/26/2022 12:20 PM EDT [...] in and get labs done. Will call [facility]. Cody Blue RN * Telephone Encounter - Martha [...] these readings down? Also can you contact [facility] [facility] and let them know we saw patient yesterday and his BP was 80/50. We are working up anemia and adjusting diabetic management, but didn't know if they wanted to address the low blood pressure and make medication change. Martha Boston PA-C documented in this encounterKettering Health [facility]10-25-2022 Miscellaneous Notes* Telephone Encounter - Selma Echevarria LPN - 06/25/2022 2:54 PM EDT Brannon with [facility] called for office visit from today 06-25-22 apt with CAMELIA Candelario. Identified pt with name and date of . Faxed copy to [phone]. Done. Selma Echevarria LPN documented in this encounterKettering Health Mi[facility]burg10-25-2022 History of Present illness Narrative* Francine Bartholomew RT(R) - 06/25/2022 9:00 AM EDT Radiology Service [...] IV DATA: Not applicable SIGNED BY: OSCAR Polanco) June 25, 2022 8:45 AM documented in this encounterKettering Health [facility]10-25-2022 Instructions* Patient Instructions* Martha Boston PA-C - 06/25/2022 8:10 AM EDT Make an appointment with cardiology to discuss your blood pressures. documented in this encounterKettering Health Miamisburg10-25-2022 History of Present illness Narrative* Martha Boston [...] Date 2D ECHO (EXEP) 01/16/2017 EF=60%, 1+ SC and TI CATARACT EXTRACTION HX Left 10/2019 [...] tablet by mouth once daily. Managed by [facility] omega-3 fatty acids 1,000 mg [...] HYDROXY Martha Boston PA-C documented in this encounterKettering Health [facility]10-20-2022 Miscellaneous Notes* Telephone Encounter - Madhuri Chapa [...] his plavix and lipitor come from the [facility] and will need to contact them is he needs scripts sent to [facility]. Requested Prescriptions Signed Prescriptions Disp Refills pioglitazone [...] is now getting his prescriptions through [facility]. Asking for prescriptions to be sent there. Patient's blood sugar is 245 today. Please review and advise, Beverly Rawls RN * Telephone Encounter - Nadir Grady MD - 06/18/2022 10:05 AM EDT Let brannon know I want to increase his actos to 30 mg a day. Is he still getting meds packaged from [facility] or did he change pharmacies. * Telephone Encounter - Cody Blue RN - 06/18/2022 9:32 AM EDT Brannon KAITLYN [facility] reports they have the [facility] health program and they were called in a blood sugar on the Pt of 447. She states the Pt reports he has only had a milk so far this morning. Pt takes Actos daily and Metformin twice a day. Pt is asymptomatic. Brannon SAHNI told Pt to start drinking lots of water. Please call and advise. documented in this encounterKettering Health Mi[facility]burg09-29-2022 Miscellaneous Notes* Telephone Encounter - Michelle Oakes - 05/30/2022 8:13 AM EDT Frida called and Michael fell with head strike, went to ED last evening, dropped drill on foot, having headaches, problems with sensations in legs now. Headaches worsening and requesting advisement. Thank you, Michelle Oakes documented in this encounterKettering Health [facility]burg09-28-2022 Miscellaneous Notes* Telephone Encounter - Luis E Agudelo LPN - 05/29/2022 1:34 PM EDT Received fax from [facility] requesting pt's last A1c as pt is in there program. Last A1c faxed to [phone] as requested. Luis E Agudelo LPN documented in this encounterKettering Health Mi[facility]burg09-27-2022 History of Present illness Narrative* Karin Hamm APRN.THERMITE BOMB LOADER - 05/28/2022 4:20 PM EDT Called to [...] LOC, Referred to ED documented in this encounterKettering Health Mi[facility]burg09-27-2022 Miscellaneous Notes* Telephone Encounter - Nadir Grady [...] would have to be responsible to notify [facility] of no longer needing services and would need to let provider's office know when he is in need of prescriptions through [facility]. Brannon verbalizes understanding and plans to contact [...] Also we just got a call from [facility] asking us to send the Actos script to them yesterday ??? Not sure how they know it went to [facility] (which is what the patient wanted) but since the person who responded to the message was not aware he was not wanting things at [facility] it got sent there. So if he is not going to use [facility] then he needs to let them know and then update use when he wants meds [facility]. However I think this is a bad idea since he can not read. * Telephone Encounter - Nury Jo RN - 05/28/2022 9:38 AM EDT Brannon De Paznes with [facility] calls to update provider on patient. Brannon reports that patient has stopped taking sertraline and amantadine d/t possible side effect of dizziness. She reports that he is removing the pills from his pill packs supplied by [facility] but patient isn't able to read so she is not certain how he is actually identifying the correct pills to remove. Patient reported to Brannon that he is no longer going to receive medication pill packs from [facility] and [facility] nurse to fill weekly for patient. Recent [...] Kern. Brannon requesting a call back at [phone] if provider wants any changes or any response to the above. Please review and advise, Nury Jo RN documented in this encounterKettering Health Mi[facility]burg09-23-2022 Miscellaneous Notes* Telephone Encounter - Karla Wadsworth MA - 05/24/2022 6:01 PM EDT Patient notified. Karla Wadsworth MA * Telephone Encounter - Nadir Grady MD - 05/24/2022 5:58 PM EDT Let patient know Actos sent to [facility] for 90 days. The following approved medication requests have been transmitted electronically. Requested Prescriptions Signed Prescriptions Disp Refills pioglitazone (ACTOS) 15 mg tablet 90 tablet 1 Sig: Take 1 tablet by mouth once daily. Authorizing Provider: NADIR GRADY MD * Telephone Encounter - Adrianne Howard LPN - 05/24/2022 4:13 PM EDT Patient called, he would like prescription sent to [facility] [place] today. * Telephone Encounter - Karla Wadsworth MA - 05/24/2022 3:15 PM EDT Did contact Frida and she indicated that she did speak with Michael and she is ok with medication being sent to [facility] but would need some system for Michael. Was talking to Frida about sending the medication for Actos now to [facility] and our phone . Karla Wadsworth MA * Telephone Encounter - Karla Wadsworth MA - 05/24/2022 1:10 PM EDT Spoke with Brannon and gave her PCP instructions. Also spoke with patient and he would like for this medication to go to [facility]. In fact he would like all of this medication to go to [facility]. I will contact Brannon to let her know. Karla Wadsworth MA * Telephone Encounter - Nadir Grady MD - 05/23/2022 8:43 AM EDT Let Brannon with [facility] care network know his Januvia is most likely the most expensive. Looking at his med sheet from [facility] the next two most costly are his [...] Karla Wadsworth MA * Telephone Encounter - Cody Blue RN - 05/21/2022 10:54 AM EDT Brannon with [facility] had called in and reported that [...] she will contact them.Pt was seen in [facility] 05-14-22 and dx with ANA. Pt not able to do virtual apts. Please review and instruct Frida. Willing to bring in for an apt. Let Frida know. Pt's pharmacy is [facility] and gets pre packed sheets. Selma Echevarria LPN documented in this encounterKettering Health [facility]09-14-2022 Miscellaneous Notes* Telephone Encounter - Martha Boston [...] Rest of labs wnl. documented in this encounterKettering Health [facility]burg09-12-2022 Instructions* Patient Instructions* Martha Boston PA-C - 05/13/2022 8:09 AM EDT Please complete labs today. We have increased zoloft to 50mg. Follow up in 6 weeks for recheck on the increase of zoloft. Follow up in 6 months medicare wellness exam. Make sure to schedule your eye exam documented in this encounterKettering Health Mi[facility]09-12-2022 History of Present illness Narrative* Martha Boston [...] Date 2D ECHO (EXEP) 01/16/2017 EF=60%, 1+ SC and TI CATARACT EXTRACTION HX Left 10/2019 [...] tablet by mouth once daily. Managed by [facility] omega-3 fatty acids 1,000 mg [...] exam Martha Boston PA-C documented in this encounterKettering Health [facility]09-02-2022 Miscellaneous Notes* Telephone Encounter - Abdirahman Duong [...] you. Abdirahman Duong RN documented in this encounterKettering Health [facility]burg09-01-2022 Miscellaneous Notes* Telephone Encounter - Nadir Grady MD - 05/02/2022 4:02 PM EDT Noted. * Telephone Encounter - Cody Blue RN - 05/02/2022 10:47 AM EDT Brannon Odonnell LPN from [facility] called and is notified of providers message. She voices understanding. She reports that Pt hadn't started the Amantadine when she had been there on Friday, he had to wait for it to get there. She reports he has been on the Midodrine for 3-4 months. She states she would have to look to see how long he had been on the Ranexa. Cody Blue, RN * Telephone Encounter - Nadir Grady MD - 05/01/2022 8:59 PM EDT Let brannon know if the symptoms just started then I would consider one of the newer meds he is on. Amantadine per his neurologist or the Ranexa or Midodrine per [facility] * Telephone Encounter - Madhuri Chapa LPN - 05/01/2022 3:00 PM EDT Brannon Odonnell LPN from [facility] calling patient is complaining of his mouth burning if he eats any pickles or ketchup. He eats a lot of potato chips for the salt, that does not bother him. Patient has no open sores in his mouth at all. Asking if any of his medications may be causing this? Please advise documented in this encounterKettering Health [facility]burg08-30-2022 Miscellaneous Notes* Telephone Encounter - Luis E [...] 04/30/2022 8:48 AM EDT Brannon SAHNI from [facility] calling to check status of note. Office [...] 04/26/2022 9:45 AM EDT Brannon SAHNI from [facility] calls to report that patient had [...] advise, Beverly Rawls RN documented in this encounterKettering Health [facility]burg08-27-2022 Miscellaneous Notes* Telephone Encounter - Luis E Agudelo LPN - 04/27/2022 11:34 AM EDT Please see pt's update. Luis E Agudelo LPN documented in this encounterKettering Health Miamisburg08-25-2022 Instructions* Patient Instructions* Rin Gagnon APRN.THERMITE BOMB LOADER - 04/25/2022 2:35 PM EDT Ortostatic Hypotension. [...] of symptoms but these medications will not "fix" the problem. Medications alone are not enough [...] squatting or stationery bicycling. documented in this encounterKettering Health Miamisburg08-25-2022 History of Present illness Narrative* Rin Gagnon APRN.CNP - 04/25/2022 1:07 PM EDT Images from the original note were not included. 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 Managed by [facility] omega-3 fatty acids 1,000 mg [...] Multi level, worse L2-L3 Diabetes ([facility]) Diabetic eye exam (HCC) 03/19/2017 Last done: [...] Date 2D ECHO (EXEP) 01/16/2017 EF=60%, 1+ SC and TI CATARACT EXTRACTION HX Left 10/2019 [...] cavus or hammer toes Strength Shoulder Abduction /5 5/5 Elbow Flexion 01/03 5/5 Elbow Extension 01/03 5/5 Wrist Flexion 01/03 5/5 Wrist Extension 01/03 5/5 Finger Extension 01/03 5/ Finger Flexion 01/03 5/5 Finger Abduction 01/03 5/5 Hip Flexion 01/03 5/ Hip Adduction 01/03 5/5 Hip Abduction 01/03 5/ Knee Flexion 01/03 5/ Knee Extension 01/03 5/ Ankle Dorsiflexion 01/03 5 Ankle Plantarflexion 01/03 5/ Ankle Inversion 01/03 5 Ankle Eversion 01/03 5/ Big Toe Extension 01/03 5/ Movement/Coordination Finger-to- nose-finger and npyu-ke-qwyh intact bilaterally. No evidence of ataxia arms. [...] would be difficulty to go to our [place] location to complete. Medications can also be [...] for EMERGENT procedures): No specimen collected. Rin Gagnon, COLLETTE.THERMITE BOMB LOADER I spent a total of 90 minutes on the date of the service which included preparing to see the patient, duwl-[id number] patient care, completing clinical documentation, obtaining and/or [...] them return for neurological follow up as evettet as next steps of communication is agreed [...] Coronary Stent Placement Diabetic Eye Exam ([facility]) Leg Pain, Bilateral Medicare Annual Wellness Visit, Subsequent Gerd Without Esophagitis Neuropathy Primary Insomnia Abnormal Dreams Medication Management Illiteracy Anemia of Chronic Disease History of Covid-19 No orders found for this visit on 04/25/22. Rin Gagnon APRN.[facility] General Neurology [address] [place] [address]. [id number] Appointment: [phone] 1. This office note has been dictated [...] of your PCP/referring physician documented in this encounterKettering Health Miamisburg08-19-2022 History of Present illness Narrative* Martha Boston [...] that's how he was taken to [facility] ER. He himself recently had heart [...] Diabetes (HCC) Diabetic eye exam ([facility]) 03/19/2017 Last done: 10/01/2018 Elevated LFTs 08/05/2015 [...] Date 2D ECHO (EXEP) 01/16/2017 EF=60%, 1+ SC and TI CATARACT EXTRACTION HX Left 10/2019 [...] TABLET Martha Boston PA-C documented in this encounterKettering Health [facility]burg08-09-2022 Miscellaneous Notes* Telephone Encounter - Nicola Valentino Ma - 04/09/2022 9:46 AM EDT Frida was notified and will have patient call to schedule ER follow up Nicola Valentino Ma * Telephone Encounter - Nadir Grady MD - 04/08/2022 10:02 PM EDT Please advise Frida that we do not have up to date papers 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 Also this title does [...] tremor that led to ER visit at [facility] over the weekend. Patient having increased [...] they [facility] and therefore are reaching out to . Please advise. Thank you. CALLIE Rodriguez documented in this encounterKettering Health [facility]burg08-03-2022 Miscellaneous Notes* Telephone Encounter - Nadir Grady [...] you. Selma Echevarria LPN documented in this encounterKettering Health Miamisburg07-25-2022 Miscellaneous Notes* Telephone Encounter - Rashawn Hewitt [...] patient. Barbara Johnson Pss documented in this encounterKettering Health Miamisburg07-20-2022 Miscellaneous Notes* Telephone Encounter - Joceline Krueger Pss - 03/20/2022 12:54 PM EDT Called the patient and relayed the provider's message of CT results. The patient understood the information provided. * Telephone Encounter - Joceline Krueger Pss - 03/20/2022 12:54 PM EDT ----- Message from Jenna Jim APRN.CNP sent at 03/19/2022 5:21 PM EDT ----- CT of brain is normal and does not show any evidence of bleed. documented in this encounterKettering Health Miamisburg07-19-2022 History of Present illness Narrative* RT Juan Jose(R) - 03/19/2022 3:40 PM EDT Radiology Service [...] IV DATA: Not applicable SIGNED BY: RT Lucretia(Emmanuelle) March 19, 2022 3:05 PM documented in this encounterKettering Health Miamisburg07-19-2022 Miscellaneous Notes* Addendum Note - Jenna Jim [...] CT. * Telephone Encounter - Jenna Jim APRN.CNP - 03/18/2022 2:12 PM EDT Is patient [...] Thank you. CALLIE Rodriguez documented in this encounterKettering Health Miamisburg06-28-2022 Miscellaneous Notes* Telephone Encounter - Zaira Currie - 02/26/2022 10:55 AM EDT Patient has [...] patient. Zaira Singh Pss documented in this encounterKettering Health Miamisburg06-24-2022 Miscellaneous Notes* Telephone Encounter - Jenna Jim APRN.CNP - 02/22/2022 1:29 PM EDT Spoke with patient's RANJEET Mariee. Discussed consult to autonomic clinic to address orthostatic hypotension prior to initiation of other medications. She is agreeable and states she would be able to drive patient to [place] (she lives in [place]). Consult placed. Will reach out to scheduling [...] may be able to drive him to [place] if that is closest location. Pt asking this provider to call his RANJEET to discuss this with her. Call placed to Frida; pt's RANJEET. No answer and voicemail left. Will attempt to contact again tomorrow. * Telephone Encounter - Joceline Cabrera Evans Pss - 02/19/2022 3:06 PM EDT Cardiac testing done at [facility] has been scanned. 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 Previously noted to have low blood pressure [...] العلي LPN - 02/19/2022 10:00 AM EDT Frida/Ojsdki-dh-ewi/POA is calling, has not heard back from the office on the next step would be. Please advise. Symone العلي LPN documented in this encounterKettering Health Miamisburg06-09-2022 History of Present illness Narrative* Jenna Jim APRN.THERMITE BOMB LOADER - 02/07/2022 8:00 AM EDT Images from the original note were not included. [facility] [place] New Patient visit New Patient Consultation February [...] Per Dr. Grady 10/25/21: Patient went to [facility] on 10/16/2021 after having 2 syncopal [...] dizzy before each episode. Patient went to [facility] 10/16/2021 and BP then was 117/75, [...] Date 2D ECHO (EXEP) 01/16/2017 EF=60%, 1+ SC and TI CATARACT EXTRACTION HX Left 10/2019 [...] tablet by mouth once daily. 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 Previously noted to have low blood pressure [...] which included preparing to see the patient, qmpy-[id number] patient care, completing clinical documentation, obtaining and/or reviewing separately obtained history, performing a medically appropriate examination and counseling and educating the patient/family/caregiver. documented in this encounterKettering Health Miamisburg06-01-2022 Miscellaneous Notes* Telephone Encounter - Nadir Grady [...] you. Madhuri Chapa LPN documented in this encounterKettering Health Miamisburg05-26-2022 Miscellaneous Notes* Telephone Encounter - Selma Echevarria LPN - 01/24/2022 10:42 AM EDT Tian with [facility] called and requesting copy of last OV for pt. Pt was identified by name and date of . Faxed to [phone]. Selma Echevarria LPN documented in this encounterKettering Health Miamisburg05-06-2022 History of Present illness Narrative* Luis E Agudelo LPN - 01/04/2022 11:15 AM EDT Scan on 01/04/2022 9:59 AM by External Provider: Consultation - Cardiology documented in this encounterKettering Health Miamisburg04-14-2022 Evaluation note* Diagnosis Onset Date Resolution Status Bilateral carotid artery stenosis acute Syncope acute Essential (primary) hypertension chronic Hyperlipidemia chronic History of loop recorder December 13, 2021 acute Syncope acute [facility] Work Phone: 1(984) 816-851504-14-2022 Evaluation note* Diagnosis Onset Date Resolution Status Bilateral carotid artery stenosis acute Syncope acute Essential (primary) hypertension chronic Hyperlipidemia chronic History of loop recorder December 13, 2021 acute Syncope acute History of loop recorder December 13, 2021 acute Syncope acute 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 Bilateral carotid artery stenosis acute History of loop recorder December 13, 2021 acute Hypotension acute Syncope acute 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 Essential (primary) hypertension chronic History of coronary artery stent placement July 232020 chronic Hyperlipidemia chronic History of loop recorder December 13, 2021 acute Syncope acute [facility] Work Phone: 1(960) 919-497504-14-2022 Evaluation note* Diagnosis Onset Date Resolution Status Bilateral carotid artery stenosis acute Syncope acute Essential (primary) hypertension chronic Hyperlipidemia chronic History of loop recorder December 13, 2021 acute Syncope acute History of loop recorder December 13, 2021 acute Syncope acute 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 Bilateral carotid artery stenosis acute History of loop recorder December 13, 2021 acute Hypotension acute Syncope acute 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 Essential (primary) hypertension chronic History of coronary artery stent placement July 232020 chronic Hyperlipidemia chronic History of loop recorder December 13, 2021 acute Syncope acute Bilateral carotid artery stenosis acute Chest pain acute 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 Essential (primary) hypertension chronic History of coronary artery stent placement July 232020 chronic Hyperlipidemia [facility] Work Phone: 1(119) 648-789904-14-2022 Evaluation note* Diagnosis Onset Date Resolution Status History of loop recorder December 13, 2021 acute Syncope acute History of loop recorder December 13, 2021 acute Syncope acute 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 Bilateral carotid artery stenosis acute History of loop recorder December 13, 2021 acute Hypotension acute Syncope acute 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 Essential (primary) hypertension chronic History of coronary artery stent placement July 232020 chronic Hyperlipidemia chronic History of loop recorder December 13, 2021 acute Syncope acute Bilateral carotid artery stenosis acute Chest pain acute 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 Essential (primary) hypertension chronic History of coronary artery stent placement July 232020 chronic Hyperlipidemia [facility] Work Phone: 1(428) 430-220404-14-2022 Evaluation note* Diagnosis Onset Date Resolution Status 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 History of loop recorder December 13, 2021 chronic Syncope October, chronic 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 Bilateral carotid artery stenosis chronic Essential (primary) hypertension chronic History of coronary artery stent placement July 232020 chronic History of loop recorder December 13, 2021 chronic Hyperlipidemia chronic Hypotension chronic Syncope October, chronic History of loop recorder December 13, 2021 chronic Syncope October, chronic 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 Bilateral carotid artery stenosis chronic Essential (primary) hypertension chronic History of coronary artery stent placement July 232020 chronic Hyperlipidemia chronic Syncope October, chronic 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 Bilateral carotid artery stenosis chronic History of coronary artery stent placement July 232020 chronic History of loop recorder December 13, 2021 chronic Hyperlipidemia chronic Hypotension chronic Syncope October, [facility] Work Phone: 1(316) 941-272804-14-2022 Evaluation note* Diagnosis Onset Date Resolution Status 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 She states she was [...] if needs additional assistance. Karen Piper PharmD, [facility] Primary Care Clinical Pharmacist [place] [facility] * Telephone Encounter - Karen Piper RPh - 12/13/2021 12:49 PM EDT PharmAristeo called Frida but unable to reach, LEFT MESSAGE ON MACHINE to return call to office. Karen Piper PharmD, [facility] Primary Care Clinical Pharmacist Rhea HARRIS [facility] [facility] * Telephone Encounter - Beverly Rawls RN [...] advise, Beverly Rawls RN documented [facility] this encounter[facility] Miscellaneous Notes* Telephone Encounter - Paula Donaldson LPN - 11/22/2021 10:47 AM EDT Patient notified of results, verbalizes understanding of instructions. Paula Donaldson LPN * Telephone Encounter - Nadir Grady MD - 11/22/2021 9:47 AM EDT Let patient know urine and blood protein studies were normal. Bleeding studies were normal. BMP was ok except for elevated blood sugar. 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 * Telephone Encounter - Ade Garcia APRN.CNP - 06/29/2021 7:34 AM EDT Please call patient and let him know his CT is negative for blood clot. Does shows ground glass opacities consistent with COVID-19 pneumonia. Does show some consolidation so I will cove with antibiotics. This is a two antibiotic regime. 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 If chest symptoms persist follow-up with PCP or hostler helper. Medications sent to [facility] pharmacy in [place]. Thanks, Ade Garcia APRN.MIGEL documented in this encounterK[facility]10-27-[facility]21 History of Present illness Narrative* Chaz Pastor [...] 27, 2021 3:20 PM documented in this encounterK[facility]-08-[facility]21 History of Present illness Narrative* Chaz PastorRt), Tech - 10/09/2020 10:30 AM EST Radiology [...] 09, 2020 10:30 AM documented in this encounterK[facility] History of Present illness Narrative* Chaz PastorRt), Tech - 09/08/2020 8:50 AM EST Radiology [...] 08, 2020 8:57 AM documented in this encounterK[facility]02-02[facility]2017 History of Past illness Narrative* Problem Noted Date Resolved Date Well adult exam 10/03/2016 04/12/2020 Overview: last done: 07/16/19. does not want colonoscopies. Other physical therapy 08/16/2010 0 Sprain of neck 07/30/2010 08/30/2010 Unspecified pruritic disorder 03/02/2009 Cervicalgia 10/16/2006 10/30/2018 Hyperlipidemia 08/04/2015 documented as of this encounter (statuses as of 12/03/2021) [facility] Narrative* Problem Noted Date Resolved Date Well adult exam 10/03/2016 04/12/2020 Overview: last done: 07/16/19. does not want colonoscopies. Other physical therapy 08/16/2010 0 Sprain of neck 07/30/2010 08/30/2010 Unspecified pruritic disorder 03/02/2009 Cervicalgia 10/16/2006 10/30/2018 Hyperlipidemia 08/04/2015 documented as of this encounter (statuses as of 12/13/2021) [facility] Narrative* Problem Noted Date Resolved Date Well adult exam 10/03/2016 04/12/2020 Overview: last done: 07/16/19. does not want colonoscopies. Other physical therapy 08/16/2010 0 Sprain of neck 07/30/2010 08/30/2010 Unspecified pruritic disorder 03/02/2009 Cervicalgia 10/16/2006 10/30/2018 Hyperlipidemia 08/04/2015 documented as of this encounter (statuses as of 01/07/2022) [facility] Narrative* Problem Noted Date Resolved Date Well adult exam 10/03/2016 04/12/2020 Overview: last done: 07/16/19. does not want colonoscopies. Other physical therapy 08/16/2010 0 Sprain of neck 07/30/2010 08/30/2010 Unspecified pruritic disorder 03/02/2009 Cervicalgia 10/16/2006 10/30/2018 Hyperlipidemia 08/04/2015 documented as of this encounter (statuses as of 01/24/2022) [facility] Narrative* Problem Noted Date Resolved Date Well adult exam 10/03/2016 04/12/2020 Overview: last done: 07/16/19. does not want colonoscopies. Other physical therapy 08/16/2010 0 Sprain of neck 07/30/2010 08/30/2010 Unspecified pruritic disorder 03/02/2009 Cervicalgia 10/16/2006 10/30/2018 Hyperlipidemia 08/04/2015 documented as of this encounter (statuses as of 01/30/2022) [facility] Narrative* Problem Noted Date Resolved Date Well adult exam 10/03/2016 04/12/2020 Overview: last done: 07/16/19. does not want colonoscopies. Other physical therapy 08/16/2010 0 Sprain of neck 07/30/2010 08/30/2010 Unspecified pruritic disorder 03/02/2009 Cervicalgia 10/16/2006 10/30/2018 Hyperlipidemia 08/04/2015 documented as of this encounter (statuses as of 01/31/2022) [facility] Narrative* Problem Noted Date Resolved Date Well adult exam 10/03/2016 04/12/2020 Overview: last done: 07/16/19. does not want colonoscopies. Other physical therapy 08/16/2010 0 Sprain of neck 07/30/2010 08/30/2010 Unspecified pruritic disorder 03/02/2009 Cervicalgia 10/16/2006 10/30/2018 Hyperlipidemia 08/04/2015 documented as of this encounter (statuses as of 02/11/2022) [facility] Narrative* Problem Noted Date Resolved Date Well adult exam 10/03/2016 04/12/2020 Overview: last done: 07/16/19. does not want colonoscopies. Other physical therapy 08/16/2010 0 Sprain of neck 07/30/2010 08/30/2010 Unspecified pruritic disorder 03/02/2009 Cervicalgia 10/16/2006 10/30/2018 Hyperlipidemia 08/04/2015 documented as of this encounter (statuses as of 02/22/2022) [facility] Narrative* Problem Noted Date Resolved Date Well adult exam 10/03/2016 04/12/2020 Overview: last done: 07/16/19. does not want colonoscopies. Other physical therapy 08/16/2010 0 Sprain of neck 07/30/2010 08/30/2010 Unspecified pruritic disorder 03/02/2009 Cervicalgia 10/16/2006 10/30/2018 Hyperlipidemia 08/04/2015 documented as of this encounter (statuses as of 02/26/2022) [facility] Narrative* Problem Noted Date Resolved Date Well adult exam 10/03/2016 04/12/2020 Overview: last done: 07/16/19. does not want colonoscopies. Other physical therapy 08/16/2010 0 Sprain of neck 07/30/2010 08/30/2010 Unspecified pruritic disorder 03/02/2009 Cervicalgia 10/16/2006 10/30/2018 Hyperlipidemia 08/04/2015 documented as of this encounter (statuses as of 03/19/2022) [facility] N[facility]ative* Problem Noted Date Resolved Date Well adult exam 10/03/2016 04/12/2020 Overview: last done: 07/16/19. does not want colonoscopies. Other physical therapy 08/16/2010 0 Sprain of neck 07/30/2010 08/30/2010 Unspecified pruritic disorder 03/02/2009 Cervicalgia 10/16/2006 10/30/2018 Hyperlipidemia 08/04/2015 documented as of this encounter (statuses as of 03/20/2022) [facility] Narrative* Problem Noted Date Resolved Date Well adult exam 10/03/2016 04/12/2020 Overview: last done: 07/16/19. does not want colonoscopies. Other physical therapy 08/16/2010 0 Sprain of neck 07/30/2010 08/30/2010 Unspecified pruritic disorder 03/02/2009 Cervicalgia 10/16/2006 10/30/2018 Hyperlipidemia 08/04/2015 documented as of this encounter (statuses as of 03/20/2022) [facility] Narrative* Problem Noted Date Resolved Date Well adult exam 10/03/2016 04/12/2020 Overview: last done: 07/16/19. does not want colonoscopies. Other physical therapy 08/16/2010 0 Sprain of neck 07/30/2010 08/30/2010 Unspecified pruritic disorder 03/02/2009 Cervicalgia 10/16/2006 10/30/2018 Hyperlipidemia 08/04/2015 documented as of this encounter (statuses as of 03/25/2022) [facility] N[facility]ative* Problem Noted Date Resolved Date Well adult exam 10/03/2016 04/12/2020 Overview: last done: 07/16/19. does not want colonoscopies. Other physical therapy 08/16/2010 0 Sprain of neck 07/30/2010 08/30/2010 Unspecified pruritic disorder 03/02/2009 Cervicalgia 10/16/2006 10/30/2018 Hyperlipidemia 08/04/2015 documented as of this encounter (statuses as of 04/04/2022) [facility] N[facility]* Problem Noted Date Resolved Date Well adult exam 10/03/2016 04/12/2020 Overview: last done: 07/16/19. does not want colonoscopies. Other physical therapy 08/16/2010 0 Sprain of neck 07/30/2010 08/30/2010 Unspecified pruritic disorder 03/02/2009 Cervicalgia 10/16/2006 10/30/2018 Hyperlipidemia 08/04/2015 documented as of this encounter (statuses as of 04/09/2022) [facility] Narrative* Problem Noted Date Resolved Date Well adult exam 10/03/2016 04/12/2020 Overview: last done: 07/16/19. does not want colonoscopies. Other physical therapy 08/16/2010 0 Sprain of neck 07/30/2010 08/30/2010 Unspecified pruritic disorder 03/02/2009 Cervicalgia 10/16/2006 10/30/2018 Hyperlipidemia 08/04/2015 documented as of this encounter (statuses as of 04/19/2022) [facility] N[facility]* Problem Noted Date Resolved Date Well adult exam 10/03/2016 04/12/2020 Overview: last done: 07/16/19. does not want colonoscopies. Other physical therapy 08/16/2010 0 Sprain of neck 07/30/2010 08/30/2010 Unspecified pruritic disorder 03/02/2009 Cervicalgia 10/16/2006 10/30/2018 Hyperlipidemia 08/04/2015 documented as of this encounter (statuses as of 04/26/2022) [facility] Narrative* Problem Noted Date Resolved Date Well adult exam 10/03/2016 04/12/2020 Overview: last done: 07/16/19. does not want colonoscopies. Other physical therapy 08/16/2010 0 Sprain of neck 07/30/2010 08/30/2010 Unspecified pruritic disorder 03/02/2009 Cervicalgia 10/16/2006 10/30/2018 Hyperlipidemia 08/04/2015 documented as of this encounter (statuses as of 04/28/2022) [facility] N[facility]* Problem Noted Date Resolved Date Well adult exam 10/03/2016 04/12/2020 Overview: last done: 07/16/19. does not want colonoscopies. Other physical therapy 08/16/2010 0 Sprain of neck 07/30/2010 08/30/2010 Unspecified pruritic disorder 03/02/2009 Cervicalgia 10/16/2006 10/30/2018 Hyperlipidemia 08/04/2015 documented as of this encounter (statuses as of 04/30/2022) [facility] N[facility]ative* Problem Noted Date Resolved Date Well adult exam 10/03/2016 04/12/2020 Overview: last done: 07/16/19. does not want colonoscopies. Other physical therapy 08/16/2010 0 Sprain of neck 07/30/2010 08/30/2010 Unspecified pruritic disorder 03/02/2009 Cervicalgia 10/16/2006 10/30/2018 Hyperlipidemia 08/04/2015 documented as of this encounter (statuses as of 05/02/2022) [facility] N[facility]* Problem Noted Date Resolved Date Well adult exam 10/03/2016 04/12/2020 Overview: last done: 07/16/19. does not want colonoscopies. Other physical therapy 08/16/2010 0 Sprain of neck 07/30/2010 08/30/2010 Unspecified pruritic disorder 03/02/2009 Cervicalgia 10/16/2006 10/30/2018 Hyperlipidemia 08/04/2015 documented as of this encounter (statuses as of 05/03/2022) [facility] N[facility]* Problem Noted Date Resolved Date Well adult exam 10/03/2016 04/12/2020 Overview: last done: 07/16/19. does not want colonoscopies. Other physical therapy 08/16/2010 0 Sprain of neck 07/30/2010 08/30/2010 Unspecified pruritic disorder 03/02/2009 Cervicalgia 10/16/2006 10/30/2018 Hyperlipidemia 08/04/2015 documented as of this encounter (statuses as of 05/13/2022) [facility] N[facility]* Problem Noted Date Resolved Date Well adult exam 10/03/2016 04/12/2020 Overview: last done: 07/16/19. does not want colonoscopies. Other physical therapy 08/16/2010 0 Sprain of neck 07/30/2010 08/30/2010 Unspecified pruritic disorder 03/02/2009 Cervicalgia 10/16/2006 10/30/2018 Hyperlipidemia 08/04/2015 documented as of this encounter (statuses as of 05/15/2022) [facility] Narrative* Problem Noted Date Resolved Date Well adult exam 10/03/2016 04/12/2020 Overview: last done: 07/16/19. does not want colonoscopies. Other physical therapy 08/16/2010 0 Sprain of neck 07/30/2010 08/30/2010 Unspecified pruritic disorder 03/02/2009 Cervicalgia 10/16/2006 10/30/2018 Hyperlipidemia 08/04/2015 documented as of this encounter (statuses as of 05/25/2022) [facility]* Problem Noted Date Resolved Date Well adult exam 10/03/2016 04/12/2020 Overview: last done: 07/16/19. does not want colonoscopies. Other physical therapy 08/16/2010 0 Sprain of neck 07/30/2010 08/30/2010 Unspecified pruritic disorder 03/02/2009 Cervicalgia 10/16/2006 10/30/2018 Hyperlipidemia 08/04/2015 documented as of this encounter (statuses as of 05/28/2022) [facility] Narrative* Problem Noted Date Resolved Date Well adult exam 10/03/2016 04/12/2020 Overview: last done: 07/16/19. does not want colonoscopies. Other physical therapy 08/16/2010 0 Sprain of neck 07/30/2010 08/30/2010 Unspecified pruritic disorder 03/02/2009 Cervicalgia 10/16/2006 10/30/2018 Hyperlipidemia 08/04/2015 documented as of this encounter (statuses as of 05/29/2022) [facility] Narr[facility]* Problem Noted Date Resolved Date Well adult exam 10/03/2016 04/12/2020 Overview: last done: 07/16/19. does not want colonoscopies. Other physical therapy 08/16/2010 0 Sprain of neck 07/30/2010 08/30/2010 Unspecified pruritic disorder 03/02/2009 Cervicalgia 10/16/2006 10/30/2018 Hyperlipidemia 08/04/2015 documented as of this encounter (statuses as of 05/30/2022) [facility] N[facility]* Problem Noted Date Resolved Date Well adult exam 10/03/2016 04/12/2020 Overview: last done: 07/16/19. does not want colonoscopies. Other physical therapy 08/16/2010 0 Sprain of neck 07/30/2010 08/30/2010 Unspecified pruritic disorder 03/02/2009 Cervicalgia 10/16/2006 10/30/2018 Hyperlipidemia 08/04/2015 documented as of this encounter (statuses as of 06/20/2022) [facility] Narrative* Problem Noted Date Resolved Date Well adult exam 10/03/2016 04/12/2020 Overview: last done: 07/16/19. does not want colonoscopies. Other physical therapy 08/16/2010 0 Sprain of neck 07/30/2010 08/30/2010 Unspecified pruritic disorder 03/02/2009 Cervicalgia 10/16/2006 10/30/2018 Hyperlipidemia 08/04/2015 documented as of this encounter (statuses as of 06/25/2022) [facility] Narrative* Problem Noted Date Resolved Date Well adult exam 10/03/2016 04/12/2020 Overview: last done: 07/16/19. does not want colonoscopies. Other physical therapy 08/16/2010 0 Sprain of neck 07/30/2010 08/30/2010 Unspecified pruritic disorder 03/02/2009 Cervicalgia 10/16/2006 10/30/2018 Hyperlipidemia 08/04/2015 documented as of this encounter (statuses as of 06/25/2022) [facility] Narrative* Problem Noted Date Resolved Date Well adult exam 10/03/2016 04/12/2020 Overview: last done: 07/16/19. does not want colonoscopies. Other physical therapy 08/16/2010 0 Sprain of neck 07/30/2010 08/30/2010 Unspecified pruritic disorder 03/02/2009 Cervicalgia 10/16/2006 10/30/2018 Hyperlipidemia 08/04/2015 documented as of this encounter (statuses as of 06/26/2022) [facility] Narrative* Problem Noted Date Resolved Date Well adult exam 10/03/2016 04/12/2020 Overview: last done: 07/16/19. does not want colonoscopies. Other physical therapy 08/16/2010 0 Sprain of neck 07/30/2010 08/30/2010 Unspecified pruritic disorder 03/02/2009 Cervicalgia 10/16/2006 10/30/2018 Hyperlipidemia 08/04/2015 documented as of this encounter (statuses as of 06/27/2022) [facility] Narrative* Problem Noted Date Resolved Date Well adult exam 10/03/2016 04/12/2020 Overview: last done: 07/16/19. does not want colonoscopies. Other physical therapy 08/16/2010 0 Sprain of neck 07/30/2010 08/30/2010 Unspecified pruritic disorder 03/02/2009 Cervicalgia 10/16/2006 10/30/2018 Hyperlipidemia 08/04/2015 documented as of this encounter (statuses as of 07/02/2022) [facility] Narrative* Problem Noted Date Resolved Date Well adult exam 10/03/2016 04/12/2020 Overview: last done: 07/16/19. does not want colonoscopies. Other physical therapy 08/16/2010 0 Sprain of neck 07/30/2010 08/30/2010 Unspecified pruritic disorder 03/02/2009 Cervicalgia 10/16/2006 10/30/2018 Hyperlipidemia 08/04/2015 documented as of this encounter (statuses as of 07/02/2022) [facility] N[facility]* Problem Noted Date Resolved Date Well adult exam 10/03/2016 04/12/2020 Overview: last done: 07/16/19. does not want colonoscopies. Other physical therapy 08/16/2010 0 Sprain of neck 07/30/2010 08/30/2010 Unspecified pruritic disorder 03/02/2009 Cervicalgia 10/16/2006 10/30/2018 Hyperlipidemia 08/04/2015 documented as of this encounter (statuses as of 07/05/2022) [facility] Narrative* Problem Noted Date Resolved Date Well adult exam 10/03/2016 04/12/2020 Overview: last done: 07/16/19. does not want colonoscopies. Other physical therapy 08/16/2010 0 Sprain of neck 07/30/2010 08/30/2010 Unspecified pruritic disorder 03/02/2009 Cervicalgia 10/16/2006 10/30/2018 Hyperlipidemia 08/04/2015 documented as of this encounter (statuses as of 07/10/2022) [facility] Narr[facility]* Problem Noted Date Resolved Date Well adult exam 10/03/2016 04/12/2020 Overview: last done: 07/16/19. does not want colonoscopies. Other physical therapy 08/16/2010 0 Sprain of neck 07/30/2010 08/30/2010 Unspecified pruritic disorder 03/02/2009 Cervicalgia 10/16/2006 10/30/2018 Hyperlipidemia 08/04/2015 documented as of this encounter (statuses as of 07/10/2022) [facility] N[facility]* Problem Noted Date Resolved Date Well adult exam 10/03/2016 04/12/2020 Overview: last done: 07/16/19. does not want colonoscopies. Other physical therapy 08/16/2010 0 Sprain of neck 07/30/2010 08/30/2010 Unspecified pruritic disorder 03/02/2009 Cervicalgia 10/16/2006 10/30/2018 Hyperlipidemia 08/04/2015 documented as of this encounter (statuses as of 07/11/2022) [facility]* Problem Noted Date Resolved Date Well adult exam 10/03/2016 04/12/2020 Overview: last done: 07/16/19. does not want colonoscopies. Other physical therapy 08/16/2010 0 Sprain of neck 07/30/2010 08/30/2010 Unspecified pruritic disorder 03/02/2009 Cervicalgia 10/16/2006 10/30/2018 Hyperlipidemia 08/04/2015 documented as of this encounter (statuses as of 07/12/2022) [facility] N[facility]* Problem Noted Date Resolved Date Well adult exam 10/03/2016 04/12/2020 Overview: last done: 07/16/19. does not want colonoscopies. Other physical therapy 08/16/2010 0 Sprain of neck 07/30/2010 08/30/2010 Unspecified pruritic disorder 03/02/2009 Cervicalgia 10/16/2006 10/30/2018 Hyperlipidemia 08/04/2015 documented as of this encounter (statuses as of 07/29/2022) [facility]* Problem Noted Date Resolved Date Well adult exam 10/03/2016 04/12/2020 Overview: last done: 07/16/19. does not want colonoscopies. Other physical therapy 08/16/2010 0 Sprain of neck 07/30/2010 08/30/2010 Unspecified pruritic disorder 03/02/2009 Cervicalgia 10/16/2006 10/30/2018 Hyperlipidemia 08/04/2015 documented as of this encounter (statuses as of 07/30/2022) [facility] Narrative* Problem Noted Date Resolved Date Well adult exam 10/03/2016 04/12/2020 Overview: last done: 07/16/19. does not want colonoscopies. Other physical therapy 08/16/2010 0 Sprain of neck 07/30/2010 08/30/2010 Unspecified pruritic disorder 03/02/2009 Cervicalgia 10/16/2006 10/30/2018 Hyperlipidemia 08/04/2015 documented as of this encounter (statuses as of 08/05/2022) [facility] Narrative* Problem Noted Date Resolved Date Well adult exam 10/03/2016 04/12/2020 Overview: last done: 07/16/19. does not want colonoscopies. Other physical therapy 08/16/2010 0 Sprain of neck 07/30/2010 08/30/2010 Unspecified pruritic disorder 03/02/2009 Cervicalgia 10/16/2006 10/30/2018 Hyperlipidemia 08/04/2015 documented as of this encounter (statuses as of 08/07/2022) [facility] Narrative* Problem Noted Date Resolved Date Well adult exam 10/03/2016 04/12/2020 Overview: last done: 07/16/19. does not want colonoscopies. Other physical therapy 08/16/2010 0 Sprain of neck 07/30/2010 08/30/2010 Unspecified pruritic disorder 03/02/2009 Cervicalgia 10/16/2006 10/30/2018 Hyperlipidemia 08/04/2015 documented as of this encounter (statuses as of 08/23/2022) [facility] Narrative* Problem Noted Date Resolved Date Well adult exam 10/03/2016 04/12/2020 Overview: last done: 07/16/19. does not want colonoscopies. Other physical therapy 08/16/2010 0 Sprain of neck 07/30/2010 08/30/2010 Unspecified pruritic disorder 03/02/2009 Cervicalgia 10/16/2006 10/30/2018 Hyperlipidemia 08/04/2015 documented as of this encounter (statuses as of 08/23/2022) [facility] Narrative* Problem Noted Date Resolved Date Well adult exam 10/03/2016 04/12/2020 Overview: last done: 07/16/19. does not want colonoscopies. Other physical therapy 08/16/2010 0 Sprain of neck 07/30/2010 08/30/2010 Unspecified pruritic disorder 03/02/2009 Cervicalgia 10/16/2006 10/30/2018 Hyperlipidemia 08/04/2015 documented as of this encounter (statuses as of 09/03/2022) [facility] Narrative* Problem Noted Date Resolved Date Well adult exam 10/03/2016 04/12/2020 Overview: last done: 07/16/19. does not want colonoscopies. Other physical therapy 08/16/2010 0 Sprain of neck 07/30/2010 08/30/2010 Unspecified pruritic disorder 03/02/2009 Cervicalgia 10/16/2006 10/30/2018 Hyperlipidemia 08/04/2015 documented as of this encounter (statuses as of 09/04/2022) [facility] Past [facility] Narrative* Problem Noted Date Resolved Date Well adult exam 10/03/2016 04/12/2020 Overview: last done: 07/16/19. does not want colonoscopies. Other physical therapy 08/16/2010 0 Sprain of neck 07/30/2010 08/30/2010 Unspecified pruritic disorder 03/02/2009 Cervicalgia 10/16/2006 10/30/2018 Hyperlipidemia 08/04/2015 documented as of this encounter (statuses as of 09/06/2022) [facility] Past [facility] Narrative* Problem Noted Date Resolved Date Well adult exam 10/03/2016 04/12/2020 Overview: last done: 07/16/19. does not want colonoscopies. Other physical therapy 08/16/2010 0 Sprain of neck 07/30/2010 08/30/2010 Unspecified pruritic disorder 03/02/2009 Cervicalgia 10/16/2006 10/30/2018 Hyperlipidemia 08/04/2015 documented as of this encounter (statuses as of 09/24/2022) [facility] History of Past illness Narrative* Problem Noted Date Resolved Date Well adult exam 10/03/2016 04/12/2020 Overview: last done: 07/16/19. does not want colonoscopies. Other physical therapy 08/16/2010 0 Sprain of neck 07/30/2010 08/30/2010 Unspecified pruritic disorder 03/02/2009 Cervicalgia 10/16/2006 10/30/2018 Hyperlipidemia 08/04/2015 documented as of this encounter (statuses as of 09/24/2022) [facility] History of Past illness Narrative* Problem Noted Date Resolved Date Well adult exam 10/03/2016 04/12/2020 Overview: last done: 07/16/19. does not want colonoscopies. Other physical therapy 08/16/2010 0 Sprain of neck 07/30/2010 08/30/2010 Unspecified pruritic disorder 03/02/2009 Cervicalgia 10/16/2006 10/30/2018 Hyperlipidemia 08/04/2015 documented as of this encounter (statuses as of 09/24/2022) [facility] History of Past illness Narrative* Problem Noted Date Resolved Date Well adult exam 10/03/2016 04/12/2020 Overview: last done: 07/16/19. does not want colonoscopies. Other physical therapy 08/16/2010 0 Sprain of neck 07/30/2010 08/30/2010 Unspecified pruritic disorder 03/02/2009 Cervicalgia 10/16/2006 10/30/2018 Hyperlipidemia 08/04/2015 documented as of this encounter (statuses as of 10/02/2022) [facility] History of Past illness Narrative* Problem Noted Date Resolved Date Well adult exam 10/03/2016 04/12/2020 Overview: last done: 07/16/19. does not want colonoscopies. Other physical therapy 08/16/2010 0 Sprain of neck 07/30/2010 08/30/2010 Unspecified pruritic disorder 03/02/2009 Cervicalgia 10/16/2006 10/30/2018 Hyperlipidemia 08/04/2015 documented as of this encounter (statuses as of 10/08/2022) [facility] History of Past illness Narrative* Problem Noted Date Resolved Date Well adult exam 10/03/2016 04/12/2020 Overview: last done: 07/16/19. does not want colonoscopies. Other physical therapy 08/16/2010 0 Sprain of neck 07/30/2010 08/30/2010 Unspecified pruritic disorder 03/02/2009 Cervicalgia 10/16/2006 10/30/2018 Hyperlipidemia 08/04/2015 documented as of this encounter (statuses as of 10/15/2022) [facility] History of Past illness Narrative* Problem Noted Date Resolved Date Well adult exam 10/03/2016 04/12/2020 Overview: last done: 07/16/19. does not want colonoscopies. Other physical therapy 08/16/2010 0 Sprain of neck 07/30/2010 08/30/2010 Unspecified pruritic disorder 03/02/2009 Cervicalgia 10/16/2006 10/30/2018 Hyperlipidemia 08/04/2015 documented as of this encounter (statuses as of 10/24/2022) [facility] History of Past illness Narrative* Problem Noted Date Resolved Date Well adult exam 10/03/2016 04/12/2020 Overview: last done: 07/16/19. does not want colonoscopies. Other physical therapy 08/16/2010 0 Sprain of neck 07/30/2010 08/30/2010 Unspecified pruritic disorder 03/02/2009 Cervicalgia 10/16/2006 10/30/2018 Hyperlipidemia 08/04/2015 documented as of this encounter (statuses as of 11/05/2022) [facility] History of Past illness Narrative* Problem Noted Date Resolved Date Well adult exam 10/03/2016 04/12/2020 Overview: last done: 07/16/19. does not want colonoscopies. Other physical therapy 08/16/2010 0 Sprain of neck 07/30/2010 08/30/2010 Unspecified pruritic disorder 03/02/2009 Cervicalgia 10/16/2006 10/30/2018 Hyperlipidemia 08/04/2015 documented as of this encounter (statuses as of 11/05/2022) [facility] History of Past illness Narrative* Problem Noted Date Resolved Date Well adult exam 10/03/2016 04/12/2020 Overview: last done: 07/16/19. does not want colonoscopies. Other physical therapy 08/16/2010 0 Sprain of neck 07/30/2010 08/30/2010 Unspecified pruritic disorder 03/02/2009 Cervicalgia 10/16/2006 10/30/2018 Hyperlipidemia 08/04/2015 documented as of this encounter (statuses as of 11/12/2022) [facility] History of Past illness Narrative* Problem Noted Date Resolved Date Well adult exam 10/03/2016 04/12/2020 Overview: last done: 07/16/19. does not want colonoscopies. Other physical therapy 08/16/2010 0 Sprain of neck 07/30/2010 08/30/2010 Unspecified pruritic disorder 03/02/2009 Cervicalgia 10/16/2006 10/30/2018 Hyperlipidemia 08/04/2015 documented as of this encounter (statuses as of 11/14/2022) [facility] History of Past illness Narrative* Problem Noted Date Resolved Date Well adult exam 10/03/2016 04/12/2020 Overview: last done: 07/16/19. does not want colonoscopies. Other physical therapy 08/16/2010 0 Sprain of neck 07/30/2010 08/30/2010 Unspecified pruritic disorder 03/02/2009 Cervicalgia 10/16/2006 10/30/2018 Hyperlipidemia 08/04/2015 documented as of this encounter (statuses as of 11/21/2022) [facility] History of Past illness Narrative* Problem Noted Date Resolved Date Well adult exam 10/03/2016 04/12/2020 Overview: last done: 07/16/19. does not want colonoscopies. Other physical therapy 08/16/2010 0 Sprain of neck 07/30/2010 08/30/2010 Unspecified pruritic disorder 03/02/2009 Cervicalgia 10/16/2006 10/30/2018 Hyperlipidemia 08/04/2015 documented as of this encounter (statuses as of 11/28/2022) [facility] History of Past illness Narrative* Problem Noted Date Resolved Date Well adult exam 10/03/2016 04/12/2020 Overview: last done: 07/16/19. does not want colonoscopies. Other physical therapy 08/16/2010 0 Sprain of neck 07/30/2010 08/30/2010 Unspecified pruritic disorder 03/02/2009 Cervicalgia 10/16/2006 10/30/2018 Hyperlipidemia 08/04/2015 documented as of this encounter (statuses as of 11/29/2022) [facility] History of Past illness Narrative* Problem Noted Date Resolved Date Well adult exam 10/03/2016 04/12/2020 Overview: last done: 07/16/19. does not want colonoscopies. Other physical therapy 08/16/2010 0 Sprain of neck 07/30/2010 08/30/2010 Unspecified pruritic disorder 03/02/2009 Cervicalgia 10/16/2006 10/30/2018 Hyperlipidemia 08/04/2015 documented as of this encounter (statuses as of 01/08/2023) [facility] History of Past illness Narrative* Problem Noted Date Resolved Date Well adult exam 10/03/2016 04/12/2020 Overview: last done: 07/16/19. does not want colonoscopies. Other physical therapy 08/16/2010 0 Sprain of neck 07/30/2010 08/30/2010 Unspecified pruritic disorder 03/02/2009 Cervicalgia 10/16/2006 10/30/2018 Hyperlipidemia 08/04/2015 documented as of this encounter (statuses as of 02/04/2023) [facility] History of Past illness Narrative* Problem Noted Date Resolved Date Well adult exam 10/03/2016 04/12/2020 Overview: last done: 07/16/19. does not want colonoscopies. Other physical therapy 08/16/2010 0 Sprain of neck 07/30/2010 08/30/2010 Unspecified pruritic disorder 03/02/2009 Cervicalgia 10/16/2006 10/30/2018 Hyperlipidemia 08/04/2015 documented as of this encounter (statuses as of 02/24/2023) [facility] History of Past illness Narrative* Problem Noted Date Diagnosed Date Resolved Date Well adult exam 10/03/2016 04/12/2020 Overview: last done: 07/16/19. does not want colonoscopies. Other physical therapy 08/16/201008/30 Sprain of neck 07/30/2010 08/30/2010 Unspecified pruritic disorder 03/02/2009 04/12/2020 Cervicalgia 10/16/2006 10/30/2018 Hyperlipidemia 08/04/2015 documented as of this encounter (statuses as of 03/10/2023) [facility] History of Past illness Narrative* Problem Noted Date Diagnosed Date Resolved Date Well adult exam 10/03/2016 04/12/2020 Overview: last done: 07/16/19. does not want colonoscopies. Other physical therapy 08/16/201008/30 Sprain of neck 07/30/2010 08/30/2010 Unspecified pruritic disorder 03/02/2009 04/12/2020 Cervicalgia 10/16/2006 10/30/2018 Hyperlipidemia 08/04/2015 documented as of this encounter (statuses as of 04/01/2023) [facility] History of Past illness Narrative* Problem Noted Date Diagnosed Date Resolved Date Well adult exam 10/03/2016 04/12/2020 Overview: last done: 07/16/19. does not want colonoscopies. Other physical therapy 08/16/201008/30 Sprain of neck 07/30/2010 08/30/2010 Unspecified pruritic disorder 03/02/2009 04/12/2020 Cervicalgia 10/16/2006 10/30/2018 Hyperlipidemia 08/04/2015 documented as of this encounter (statuses as of 04/02/2023) [facility] History of Past illness Narrative* Problem Noted Date Diagnosed Date Resolved Date Well adult exam 10/03/2016 04/12/2020 Overview: last done: 07/16/19. does not want colonoscopies. Other physical therapy 08/16/201008/30 Sprain of neck 07/30/2010 08/30/2010 Unspecified pruritic disorder 03/02/2009 04/12/2020 Cervicalgia 10/16/2006 10/30/2018 Hyperlipidemia 08/04/2015 documented as of this encounter (statuses as of 04/03/2023) [facility] History of Past illness Narrative* Problem Noted Date Diagnosed Date Resolved Date Well adult exam 10/03/2016 04/12/2020 Overview: last done: 07/16/19. does not want colonoscopies. Other physical therapy 08/16/201008/30 Sprain of neck 07/30/2010 08/30/2010 Unspecified pruritic disorder 03/02/2009 04/12/2020 Cervicalgia 10/16/2006 10/30/2018 Hyperlipidemia 08/04/2015 documented as of this encounter (statuses as of 04/05/2023) [facility]2017 History of Past illness Narrative* Problem Noted Date Diagnosed Date Resolved Date Well adult exam 10/03/2016 04/12/2020 Overview: last done: 07/16/19. does not want colonoscopies. Other physical therapy 08/16/201008/30 Sprain of neck 07/30/2010 08/30/2010 Unspecified pruritic disorder 03/02/2009 04/12/2020 Cervicalgia 10/16/2006 10/30/2018 Hyperlipidemia 08/04/2015 documented as of this encounter (statuses as of 04/12/2023) [facility]2017 History of Past illness Narrative* Problem Noted Date Diagnosed Date Resolved Date Well adult exam 10/03/2016 04/12/2020 Overview: last done: 07/16/19. does not want colonoscopies. Other physical therapy 08/16/201008/30 Sprain of neck 07/30/2010 08/30/2010 Unspecified pruritic disorder 03/02/2009 04/12/2020 Cervicalgia 10/16/2006 10/30/2018 Hyperlipidemia 08/04/2015 documented as of this encounter (statuses as of 05/18/2023) [facility] History of Past illness Narrative* Problem Noted Date Diagnosed Date Resolved Date Well adult exam 10/03/2016 04/12/2020 Overview: last done: 07/16/19. does not want colonoscopies. Other physical therapy 08/16/201008/30 Sprain of neck 07/30/2010 08/30/2010 Unspecified pruritic disorder 03/02/2009 04/12/2020 Cervicalgia 10/16/2006 10/30/2018 Hyperlipidemia 08/04/2015 documented as of this encounter (statuses as of 06/19/2023) [facility] History of Past illness Narrative* Problem Noted Date Diagnosed Date Resolved Date Well adult exam 10/03/2016 04/12/2020 Overview: last done: 07/16/19. does not want colonoscopies. Other physical therapy 08/16/201008/30 Sprain of neck 07/30/2010 08/30/2010 Unspecified pruritic disorder 03/02/2009 04/12/2020 Cervicalgia 10/16/2006 10/30/2018 Hyperlipidemia 08/04/2015 documented as of this encounter (statuses as of 06/26/2023) [facility] History of Past illness Narrative* Problem Noted Date Diagnosed Date Resolved Date Well adult exam 10/03/2016 04/12/2020 Overview: last done: 07/16/19. does not want colonoscopies. Other physical therapy 08/16/201008/30 Sprain of neck 07/30/2010 08/30/2010 Unspecified pruritic disorder 03/02/2009 04/12/2020 Cervicalgia 10/16/2006 10/30/2018 Hyperlipidemia 08/04/2015 documented as of this encounter (statuses as of 06/27/2023) [facility] History of Past illness Narrative* Problem Noted Date Diagnosed Date Resolved Date Well adult exam 10/03/2016 04/12/2020 Overview: last done: 07/16/19. does not want colonoscopies. Other physical therapy 08/16/201008/30 Sprain of neck 07/30/2010 08/30/2010 Unspecified pruritic disorder 03/02/2009 04/12/2020 Cervicalgia 10/16/2006 10/30/2018 Hyperlipidemia 08/04/2015 documented as of this encounter (statuses as of 06/27/2023) [facility]2017 History of Past illness Narrative* Problem Noted Date Diagnosed Date Resolved Date Well adult exam 10/03/2016 04/12/2020 Overview: last done: 07/16/19. does not want colonoscopies. Other physical therapy 08/16/201008/30 Sprain of neck 07/30/2010 08/30/2010 Unspecified pruritic disorder 03/02/2009 04/12/2020 Cervicalgia 10/16/2006 10/30/2018 Hyperlipidemia 08/04/2015 documented as of this encounter (statuses as of 07/06/2023) [facility] History of Past illness Narrative* Problem Noted Date Diagnosed Date Resolved Date Well adult exam 10/03/2016 04/12/2020 Overview: last done: 07/16/19. does not want colonoscopies. Other physical therapy 08/16/201008/30 Sprain of neck 07/30/2010 08/30/2010 Unspecified pruritic disorder 03/02/2009 04/12/2020 Cervicalgia 10/16/2006 10/30/2018 Hyperlipidemia 08/04/2015 documented as of this encounter (statuses as of 07/06/2023) [facility] History of Past illness Narrative* Problem Noted Date Diagnosed Date Resolved Date Well adult exam 10/03/2016 04/12/2020 Overview: last done: 07/16/19. does not want colonoscopies. Other physical therapy 08/16/201008/30 Sprain of neck 07/30/2010 08/30/2010 Unspecified pruritic disorder 03/02/2009 04/12/2020 Cervicalgia 10/16/2006 10/30/2018 Hyperlipidemia 08/04/2015 documented as of this encounter (statuses as of 07/06/2023) [facility] History of Past illness Narrative* Problem Noted Date Diagnosed Date Resolved Date Well adult exam 10/03/2016 04/12/2020 Overview: last done: 07/16/19. does not want colonoscopies. Other physical therapy 08/16/201008/30 Sprain of neck 07/30/2010 08/30/2010 Unspecified pruritic disorder 03/02/2009 04/12/2020 Cervicalgia 10/16/2006 10/30/2018 Hyperlipidemia 08/04/2015 documented as of this encounter (statuses as of 10/10/2023) [facility] History of Past illness Narrative* Problem Noted Date Diagnosed Date Resolved Date Well adult exam 10/03/2016 04/12/2020 Overview: last done: 07/16/19. does not want colonoscopies. Other physical therapy 08/16/201008/30 Sprain of neck 07/30/2010 08/30/2010 Unspecified pruritic disorder 03/02/2009 04/12/2020 Cervicalgia 10/16/2006 10/30/2018 Hyperlipidemia 08/04/2015 documented as of this encounter (statuses as of 10/11/2023) [facility] History of Past illness Narrative* Problem Noted Date Diagnosed Date Resolved Date Well adult exam 10/03/2016 04/12/2020 Overview: last done: 07/16/19. does not want colonoscopies. Other physical therapy 08/16/201008/30 Sprain of neck 07/30/2010 08/30/2010 Unspecified pruritic disorder 03/02/2009 04/12/2020 Cervicalgia 10/16/2006 10/30/2018 Hyperlipidemia 08/04/2015 documented as of this encounter (statuses as of 10/14/2023) [facility] History of Past illness Narrative* Problem Noted Date Diagnosed Date Resolved Date Well adult exam 10/03/2016 04/12/2020 Overview: last done: 07/16/19. does not want colonoscopies. Other physical therapy 08/16/201008/30 Sprain of neck 07/30/2010 08/30/2010 Unspecified pruritic disorder 03/02/2009 04/12/2020 Cervicalgia 10/16/2006 10/30/2018 Hyperlipidemia 08/04/2015 documented as of this encounter (statuses as of 10/16/2023) [facility] History of Past illness Narrative* Problem Noted Date Diagnosed Date Resolved Date Well adult exam 10/03/2016 04/12/2020 Overview: last done: 07/16/19. does not want colonoscopies. Other physical therapy 08/16/201008/30 Sprain of neck 07/30/2010 08/30/2010 Unspecified pruritic disorder 03/02/2009 04/12/2020 Cervicalgia 10/16/2006 10/30/2018 Hyperlipidemia 08/04/2015 documented as of this encounter (statuses as of 10/23/2023) [facility] History of Past illness Narrative* Problem Noted Date Diagnosed Date Resolved Date Well adult exam 10/03/2016 04/12/2020 Overview: last done: 07/16/19. does not want colonoscopies. Other physical therapy 08/16/201008/30 Sprain of neck 07/30/2010 08/30/2010 Unspecified pruritic disorder 03/02/2009 04/12/2020 Cervicalgia 10/16/2006 10/30/2018 Hyperlipidemia 08/04/2015 documented as of this encounter (statuses as of 10/23/2023) [facility] History of Past illness Narrative* Problem Noted Date Diagnosed Date Resolved Date Well adult exam 10/03/2016 04/12/2020 Overview: last done: 07/16/19. does not want colonoscopies. Other physical therapy 08/16/201008/30 Sprain of neck 07/30/2010 08/30/2010 Unspecified pruritic disorder 03/02/2009 04/12/2020 Cervicalgia 10/16/2006 10/30/2018 Hyperlipidemia 08/04/2015 documented as of this encounter (statuses as of 10/24/2023) [facility] History of Past illness Narrative* Problem Noted Date Diagnosed Date Resolved Date Well adult exam 10/03/2016 04/12/2020 Overview: last done: 07/16/19. does not want colonoscopies. Other physical therapy 08/16/201008/30 Sprain of neck 07/30/2010 08/30/2010 Unspecified pruritic disorder 03/02/2009 04/12/2020 Cervicalgia 10/16/2006 10/30/2018 Hyperlipidemia 08/04/2015 documented as of this encounter (statuses as of 10/30/2023) [facility] History of Past illness Narrative* Problem Noted Date Diagnosed Date Resolved Date Well adult exam 10/03/2016 04/12/2020 Overview: last done: 07/16/19. does not want colonoscopies. Other physical therapy 08/16/201008/30 Sprain of neck 07/30/2010 08/30/2010 Unspecified pruritic disorder 03/02/2009 04/12/2020 Cervicalgia 10/16/2006 10/30/2018 Hyperlipidemia 08/04/2015 documented as of this encounter (statuses as of 12/05/2023) [facility] December 04, 2023 1:04pm Note Date/Time December 04, 2023 1:04 pm [facility] Medical Records Department [address] [place] [address] Instructions for Home/Discharge Instructions 12/04/23 1300 MR#: [id number] Acct: [id number] Name: MICHAEL BATES Jr. Rep #:[id number] : 1955 68 From: [...] Pain, Noncardiac Discharge Orders/Prescriptions Prescriptions: Continued omega 5-gfx-eyd-fish oil [Fish Oil] 1,000 mg (120 mg-180 [...] 12/04/23 1304<Electronically signed by Martina Cr MD>Martina Cr MD CC: Dr. Nadir Grady MD; Dr. Gildardo Walton MD ~ Signed [facility] Work Phone: Evaluation note* Diagnosis Onset Date Resolution Status Bilateral carotid artery stenosis acute Syncope acute Essential (primary) hypertension chronic Hyperlipidemia chronic [facility] Work Phone: Evaluation note* Diagnosis Type 2 diabetes mellitus without complication, without long-term current use of insulin (HCC) [facility] Diagnosis Syncope, unspecified syncope type- Primary Orthostatic hypotension Facial numbness Disturbance of skin sensation Injury of head, sequela Chronic post-traumatic headache, not intractable Chronic post-traumatic headache [facility] Diagnosis Orthostatic hypotension- Primary [facility] Diagnosis Mixed hyperlipidemia [facility] Diagnosis Injury of head, initial encounter [facility] Injury of head, initial encounter [facility] Diagnosis Chest pain, unspecified type [facility] Diagnosis Situational depression- Primary Adjustment disorder with depressed mood Panic disorder Panic disorder without agoraphobia [facility] Diagnosis Orthostatic hypotension- Primary Occipital neuralgia of right side Neuropathy Mononeuritis of unspecified site Syncope and collapse [facility] Diagnosis Encounter for immunization- Primary [...] with depressed mood [facility] Diagnosis Hyponatremia- Primary Hyposmolality and/or hyponatremia [facility] Diagnosis Injury of head, initial encounter- Primary LOC (loss of consciousness) ([facility]) Other alteration of consciousness [facility]* Diagnosis Type 2 diabetes mellitus without complication, without long-term current use of insulin ([facility]) Mixed hyperlipidemia [facility] Diagnosis Abnormal weight loss- Primary Loss of weight Muscle mass Other musculoskeletal symptoms referable to limbs Intractable chronic post-traumatic headache Chronic post-traumatic headache Neuropathy Mononeuritis of unspecified site Situational depression Adjustment disorder with depressed mood Fatigue, unspecified type Myalgia Mylagia and myositis, unspecified [facility] Diagnosis Anemia, unspecified type- Primary Hyperglycemia Other abnormal glucose Uncontrolled type 2 diabetes mellitus with hyperglycemia ([facility]) Blood sugar increased Other abnormal glucose [facility] Diagnosis Iron deficiency anemia, unspecified iron deficiency anemia type- Primary [facility] Diagnosis Anemia, unspecified type [facility]* Diagnosis Abnormal weight loss- Primary Loss of weight [facility] Diagnosis Panic disorder Panic disorder without agoraphobia Situational depression Adjustment disorder with depressed mood Adjustment disorder with depressed mood [facility] Diagnosis Bladder wall thickening- Primary Other specified disorders of bladder Abnormal weight loss Loss of weight [facility]* Diagnosis Type 2 diabetes mellitus with diabetic neuropathy, without long-term current use of insulin ([facility])- Primary [facility] Diagnosis Bladder wall thickening- Primary Other specified disorders of bladder Benign non-nodular prostatic hyperplasia without lower urinary tract symptoms [facility]* Diagnosis Dizziness- Primary Dizziness and giddiness Tremor Abnormal involuntary movements Hypotension, unspecified hypotension type Panic disorder Panic disorder without agoraphobia Situational depression Adjustment disorder with depressed mood Atypical chest pain Other chest pain Iron deficiency anemia, unspecified iron deficiency anemia type [facility] Diagnosis Foot injury, left, initial encounter- Primary [facility] Syncope, unspecified syncope type- Primary Orthostatic hypotension [facility] [place] Diagnosis Type 2 diabetes mellitus with diabetic neuropathy, without long-term current use of insulin (HCC)- Primary Essential hypertension, benign [facility] Iron deficiency anemia, unspecified iron deficiency anemia type- Primary Anemia, unspecified type [facility] Diagnosis Long-segment Santos's esophagus- Primary Hiatal hernia Diaphragmatic hernia without mention of obstruction or gangrene Diverticulosis Diverticulosis of colon (without mention of hemorrhage) Other gastritis without bleeding [facility]* Diagnosis Rhus dermatitis- Primary Contact dermatitis and other eczema due to plants (except food) Syncope, unspecified syncope type- Primary Orthostatic hypotension [facility] Diagnosis Syncope, unspecified syncope type- Primary Orthostatic hypotension [facility]* Diagnosis Medicare annual wellness visit, subsequent- Primary [facility] Advance directive discussed with patient Other specified [...] esophagitis Esophageal reflux [facility]* Diagnosis Elevated PSA- Primary Elevated prostate specific antigen (PSA) Uncontrolled type 2 diabetes mellitus with hyperglycemia (HCC) [facility] Diagnosis Type 2 diabetes mellitus without complication, without long-term current use of insulin (HCC) [facility] Diagnosis Panic disorder- Primary Panic disorder without agoraphobia Syncope, unspecified syncope type- Primary Orthostatic hypotension [facility] Diagnosis Rash- Primary Rash and other nonspecific skin eruption [facility]* Diagnosis Mouth sores- Primary Other and unspecified diseases of the oral soft tissues [facility]* Diagnosis Patient left without being seen- Primary Surgical or other procedure not carried out because of patient's decision SOB (shortness of breath) Shortness of breath [facility]* Diagnosis Mouth pain- Primary Other and unspecified diseases of the oral soft tissues [facility]* Diagnosis Abnormal weight loss Loss of weight [facility]* Diagnosis Abnormal weight loss Loss of weight [facility]* Diagnosis Onset Date Resolution Status Acute electrocardiogram changes acute Angina at rest acute Chest pain acute History of CAD (coronary artery disease) acute Hx of diabetes insipidus acu te Unstable angina acute [facility] Work Phone: Evaluation note* Diagnosis Onset Date Resolution Status Acute electrocardiogram changes acute Angina at rest acute Chest pain acute History of CAD (coronary artery disease) acute Hx of diabetes insipidus acu te Unstable angina acute Hyperlipidemia chronic Hypertension chronic Type 2 diabetes mellitus chr onic [facility] Work Phone: Evaluation note* Diagnosis Type 2 diabetes mellitus with diabetic neuropathy, without long-term current use of insulin (HCC) [facility]* Diagnosis Lip swelling- Primary Diseases of lips [facility]* Diagnosis Onset Date Resolution Status Acute electrocardiogram changes resolved Angina at rest resolved Chest pain resolved Unstable angina resolved [facility] Work Phone: Evaluation note* Diagnosis Mixed hyperlipidemia [facility]* Diagnosis Left forearm pain- Primary Pain in limb Hand pain, left Pain in limb Contusion of left forearm, initial encounter Left forearm pain Pain in limb Hand pain, left Pain in limb [facility]* Diagnosis Anemia of chronic disease Anemia of other chronic disease [facility]* Diagnosis Type 2 diabetes mellitus without complication, without long-term current use of insulin (HCC) [facility]* Diagnosis Mixed hyperlipidemia- Primary Need for vaccination Need for prophylactic vaccination and inoculation against unspecified single disease Uncontrolled type 2 diabetes mellitus without complication, without long-term current use of insulin Coronary atherosclerosis due to lipid rich plaque Gastroesophageal reflux disease without esophagitis Esophageal reflux GERD without esophagitis- Primary Esophageal reflux Mixed hyperlipidemia [facility] Diagnosis Mixed hyperlipidemia- Primary Need for vaccination Need for prophylactic vaccination and inoculation against unspecified single disease Uncontrolled type 2 diabetes mellitus without complication, without long-term current use of insulin Coronary atherosclerosis due to lipid rich plaque Gastroesophageal reflux disease without esophagitis Esophageal reflux Left forearm pain Pain in limb Hand pain, left Pain in limb documented in this encounter [facility] note* Diagnosis Mixed hyperlipidemia- Primary Need for vaccination Need for prophylactic vaccination and inoculation against unspecified single disease Uncontrolled type 2 diabetes mellitus without complication, without long-term current use of insulin Coronary atherosclerosis due to lipid rich plaque Gastroesophageal reflux disease without esophagitis Esophageal reflux Foot injury, left, initial encounter documented in this encounter [facility] note* Diagnosis Mixed hyperlipidemia- Primary Need for vaccination Need for prophylactic vaccination and inoculation against unspecified single disease Uncontrolled type 2 diabetes mellitus without complication, without long-term current use of insulin Coronary atherosclerosis due to lipid rich plaque Gastroesophageal reflux disease without esophagitis Esophageal reflux Abnormal weight loss Loss of weight documented in this encounter [facility] note* Diagnosis Mixed hyperlipidemia- Primary Need for vaccination Need for prophylactic vaccination and inoculation against unspecified single disease Uncontrolled type 2 diabetes mellitus without complication, without long-term current use of insulin Coronary atherosclerosis due to lipid rich plaque Gastroesophageal reflux disease without esophagitis Esophageal reflux SOB (shortness of breath) Shortness of breath Chest pain, unspecified type documented in this encounter [facility] note* Diagnosis Mixed hyperlipidemia- Primary Need for vaccination Need for prophylactic vaccination and inoculation against unspecified single disease Uncontrolled type 2 diabetes mellitus without complication, without long-term current use of insulin Coronary atherosclerosis due to lipid rich plaque Gastroesophageal reflux disease without esophagitis Esophageal reflux Acute pain of right shoulder documented in this encounter [facility] note* Diagnosis Mixed hyperlipidemia- Primary Need for [...] Loss of weight [facility]* Diagnosis Mixed hyperlipidemia- Primary Need for [...] (HCC) [facility]* Diagnosis Mixed hyperlipidemia- Primary Need for [...] in joint, forearm [facility]* Diagnosis Mixed hyperlipidemia- Primary Need for vaccination Need for prophylactic vaccination and inoculation against unspecified single disease Uncontrolled type 2 diabetes mellitus without complication, without long-term current use of insulin Coronary atherosclerosis due to lipid rich plaque Gastroesophageal reflux disease without esophagitis Esophageal reflux Wrist pain, right Pain in joint, forearm [facility]* Diagnosis Mixed hyperlipidemia- Primary Need for vaccination Need for prophylactic vaccination and inoculation against unspecified single disease Uncontrolled type 2 diabetes mellitus without complication, without long-term current use of insulin Coronary atherosclerosis due to lipid rich plaque Gastroesophageal reflux disease without esophagitis Esophageal reflux Adverse effect of txvq-fhy-[id number] medication, initial encounter- Primary documented in this encounter [facility] note* Diagnosis Mixed hyperlipidemia- Primary Need for vaccination Need for prophylactic vaccination and inoculation against unspecified single disease Uncontrolled type 2 diabetes mellitus without complication, without long-term current use of insulin Coronary atherosclerosis due to lipid rich plaque Gastroesophageal reflux disease without esophagitis Esophageal reflux Type 2 diabetes mellitus without complication, without long-term current use of insulin (HCC) documented in this encounter [facility] note* Diagnosis Mixed hyperlipidemia- Primary Need for [...] of lung field [facility]* Diagnosis Mixed hyperlipidemia- Primary Need for vaccination Need for prophylactic vaccination and inoculation against unspecified single disease Uncontrolled type 2 diabetes mellitus without complication, without long-term current use of insulin Coronary atherosclerosis due to lipid rich plaque Gastroesophageal reflux disease without esophagitis Esophageal reflux Abnormal chest x-ray Other nonspecific abnormal finding of lung field [facility]* Diagnosis Mixed hyperlipidemia- Primary Need for [...] onset headache Headache [facility]* Diagnosis Mixed hyperlipidemia- Primary Need for vaccination Need for prophylactic vaccination and inoculation against unspecified single disease Uncontrolled type 2 diabetes mellitus without complication, without long-term current use of insulin Coronary atherosclerosis due to lipid rich plaque Gastroesophageal reflux disease without esophagitis Esophageal reflux [place]cl[place] headache Headache New onset headache Headache documented in this encounter [facility] note* Diagnosis Mixed hyperlipidemia- Primary Need for [...] insomnia Insomnia, unspecified documented in this encounter [facility] note* Diagnosis Mixed hyperlipidemia- Primary Need for [...] stated as uncontrolled [facility] Diagnosis Mixed hyperlipidemia- Primary Need for [...] Other sleep disturbances [facility]* Diagnosis Mixed hyperlipidemia- Primary Need for vaccination Need for prophylactic vaccination and inoculation against unspecified single disease Uncontrolled type 2 diabetes mellitus without complication, without long-term current use of insulin Coronary atherosclerosis due to lipid rich plaque Gastroesophageal reflux disease without esophagitis Esophageal reflux Anemia of chronic disease Anemia of other chronic disease [facility] Diagnosis Mixed hyperlipidemia- Primary Need for [...] (HCC) [facility] Author Gildardo Walton [facility] October 09, 2023 9:01pm Note Date/Time October 09, 2023 8 :07pm [facility] Medical Records Department [address] [place] [address] H&P Exam - Hospitalist 10/09/232004 MR#: [id number] Acct: [id number] Name: MICHAEL BATES JrMukesh Rep #:[id number] : 1955 68 From: Gildardo Escoto PCP: Dr. Nadir Grady MD Status:ADM IN Location: [facility] [id number]- [id number] HPI - General General Date of Admission: 10/09/23 Date of Service: 10/09/23 Chief Complaint: Worsening of chest pain/pressure chest pain today along with shortness of breath HPI Narrative MICHAEL GREGORYCLEOFAISAL, is a 68 M with history of [...] x-ray reviewed and discussed assessment and plan. [facility] Medical History Atherosclerotic heart disease of solomon coronary artery without angina pectoris Bilateral carotid artery stenosis BPH (benign prostatic hyperplasia) COVID-19 (06/2021) DDD (degenerative disc disease) Elevated LFTs Essential (primary) hypertension Hyperlipidemia Sciatica Syncope (10/2021) Tremor of both hands Type 2 diabetes mellitus Home Medications aspirin 81 mg tablet,delayed release 81 mg PO DAILY@0800 [facility] 09/13/13 [History Last Taken 02/11/22] omega 2-fpg-wwl-fish oil 1,000 mg (120 mg-180 mg) capsule [...] Allergy Severe ANGIOEDEMA Verified 10/09/23 18:11 [From [facility]] perfume AdvReac Other Verified 10/09/23 18:11 Family [...] % (Auto) 63.1, Lymph % (Auto) 25.4, [place]% (Auto) 7.7, Eos % (Auto) 2.7, Baso [...] most likely unstable angina:Patient is being admitted [facility]. SHARRI risk score is 5 [...] in July 2020 reported EF normal with Wayan-normal. Stage I?oxygen. Bubble contrast today negative. Mild [...] advanced directive. His brother is power of attorney recruiter for health. After discussion of benefits/risks procedures involved with full code, DNR CC arrest and DNR CC, the patient opted for DNRCC arrest with no intubation. Patient brother is in agreement Patient doesn't want artificial life support including intubation, tube feed, ventilator and/chest compression, central venous catheter, vasopressor and DC shock if needed Total time spent in jjpi-kh-kssj encounter in discussion of advanced directive 17 minutes. Laboratory Results 10/09/23 18:30: WBC 7.1, RBC 3.87 L, Hgb 11.5 L, Hct 35.0 L, MCV 90.4, MCH 29.7,MCHC 32.9, RDW Std Deviation 42.6, RDW Coeff of Megan 13.0, Plt Count 210, MPV 9.5, Immature Gran % (Auto) 0.400, Neut % (Auto) 63.1, Lymph % (Auto) 25.4, [place]% (Auto) 7.7, Eos % (Auto) 2.7, Baso [...] 18:53 EST Reading Location ID and State: [facility] / OR Tel , Service support , Charges/Coding Visit Charges Inpatient E&M: 06144 Init Hosp L3 Procedures Hospitalists Procedures: 82637 Advncd Care Plan 30 Min 10/09/232100 <Electronically signed by Gildardo Walton MD> Cosigner Signature (if applicable): CC: Dr. Nadir Grady MD; Dr. Gildardo Walton MD~ Signed [facility] Work Phone: History and physical note Author Gildardo Walton [facility] December 03, 2023 6:51pm Note Date/Time December 03, 2023 6:51 pm [facility] Medical Records Department [address] [place] [address] H&P Exam - Hospitalist 12/03/23 1826 MR#: [id number] Acct: [id number] Name: MICHAEL BATES Jr. Rep #:[id number] : 1955 68 From: Gildardo Escoto PCP: Dr. Nadir Grady MD Status:ADM JASON Location: [place] [address] HPI - General General Date of Admission: [...] sinus rhythm. Patient had 2 troponins negative. [facility] Medical History Atherosclerotic heart disease of solomon coronary artery without angina pectoris (10/10/23) Bilateral carotid artery stenosis BPH (benign prostatic hyperplasia) COVID-19 (06/2021) DDD (degenerative disc disease) Elevated LFTs Essential (primary) hypertension History of CAD (coronary artery disease) Hx of diabetes insipidus Hyperlipidemia Hypertension Sciatica Syncope (10/2021) Tremor of both hands Type 2 diabetes mellitus Home Medications aspirin 81 mg tablet,delayed release 81 mg PO DAILY@0800 [facility] 09/13/13 [History Last Taken 02/11/22] omega 2-smx-pfw-fish oil 1,000 mg (120 mg-180 mg) capsule [...] Allergy Severe ANGIOEDEMA Verified 10/30/23 09:08 [From [facility]] losartan AdvReac Severe Angioedema Verified 10/30/23 09:33 [...] % (Auto) 65.7, Lymph % (Auto) 19.4, [place]% (Auto) 11.2 H, Eos % (Auto) 1.9, [...] angina: Patient is being admitted in PCU. SAHRRI risk score is 5 out of 7. [...] brother present in ED is power of attorney recruiter for health. After discussion of benefits/risks procedures involved with full code,DNR CC arrest and DNR CC, the patient opted for DNR CC arrest with no intubation Patient doesn't want artificial life support including intubation, tube feed, ventilator and/chest compression, central venous catheter, vasopressor and DC shock if needed Total time spent in ijct-sw-ayfu encounter in discussion of advanced directive 17 minutes. Laboratory Results 12/03/23 14:50: WBC 4.6, RBC 3.83 L, Hgb 11.4 L, Hct 33.3 L, MCV 86.9, MCH 29.8,MCHC 34.2, RDW Std Deviation 39.1, RDW Coeff of Megan 12.3, Plt Count 189, MPV 9.2, Immature Gran % (Auto) 0.900, Neut % (Auto) 65.7, Lymph % (Auto) 19.4, [place]% (Auto) 11.2 H, Eos % (Auto) 1.9, [...] radiographic abnormalities. Charges/Coding Visit Charges Inpatient E&M: 19779 Init Hosp L3 Procedures Hospitalists Procedures: 31741 Advncd Care Plan 30 Min 12/03/23 1851 <Electronically signed by Gildardo Walton MD> Cosigner Signature (if applicable): CC: Dr. Nadir Grady MD; Dr. Gildardo Walton MD~ Signed [facility] Work Phone: [facility] (narrative)* Diagnostic Procedure Only (Routine) - Authorized Specialty Diagnoses / Procedures Referred By Carlos t Referred To Contact US IMAGING Diagnoses Abnormal weight loss Procedures US ABD RT UPPER QUADRANT US ABDOMINAL REAL TIME W/IMAGE LIMITED Martha Boston PA-C [address] [place] [address] Us Imaging Referral ID Status Reason Start Date Expiration Date Visits Requested Visits Authorized [id number] Authorized Auto-Generat ed Referral 2 07/25/2023 1 1 [facility] for referral (narrative)* Outpatient Procedure (Routine) - Pending Review Specialty Diagnoses / Procedures Referred By Carlos t Referred To Contact [facility] Diagnoses Anemia, unspecified type Procedures COLONOSCOPY DIAGNOSTIC COLONOSCOPY FLX DX W/COLLJ SPEC WHEN PFRMThai Burnett MD [address] [place] [address] [facility] [address] [place] [address] Referral ID Status Reason Start Date Expiration Date Visits Requested Visits Authorized [id number] Pending Review Auto-Generat ed Referral 2 06/27/2023 1 1 * Outpatient Procedure (Routine) - Pending Review Specialty Diagnoses / Procedures Referred By Contjean pierre t Referred To Contact [facility] Diagnoses Anemia, unspecified type Procedures EGD DIAGNOSTIC ESOPHAGOGASTRODUODENOSC OPY TRANSORAL DIAGNOSTIC Thai Santiago MD [address] [place] [address] [facility] [address] [place] [address] Referral ID Status Reason Start Date Expiration Date Visits Requested Visits Authorized [id number] Pending Review Auto-Generat ed Referral 2 06/27/2023 1 1 [facility] for referral (narrative)* Diagnostic Procedure Only (Urgent) - Closed Specialty Diagnoses / Procedures Referred By Carlos t Referred To Contact XR IMAGING Diagnoses Foot injury, left, initial encounter Procedures XR FOOT GENERAL 3V AP/LAT/OBL LEFT RADEX FOOT COMPLETE MINIMUM 3 VIEWS Miladys Butt APRN.CNP [address] [place] [address] Xr Imaging Referral ID Status Reason Start Date Expiration Date V isits Requested Visits Authorized [id number] Closed Auto-Generate d Referral 09/23/2022 10/23/2023 1 1 [facility] for referral (narrative)* Outpatient Procedure (Routine) - Closed Specialty Diagnoses / Procedures Referred By Contac t Referred To Contact Diagnoses Anemia, unspecified type Procedures COLONOSCOPY DIAGNOSTIC COLONOSCOPY FLX DX W/COLLJ SPEC WHEN Thai Borges MD [address] [place] [address] Nell Gillis MD [address] [facility] [place] [address] Referral ID Status Reason Start Date Expiration Date V isits Requested Visits Authorized [id number] Closed Auto-Generate d Referral 10/14/2022 01/12/2023 1 1 * Outpatient Procedure (Routine) - Closed Specialty Diagnoses / Procedures Referred By Contjean pierre t Referred To Contact Diagnoses Anemia, unspecified type Procedures EGD DIAGNOSTIC ESOPHAGOGASTRODUODENOSCOPY TRANSORAL DIAGNOSTIC Thai Santiago MD [address] [facility] [place] [address] Nell Gillis MD [address] [facility] [place] [address] Referral ID Status Reason Start Date Expiration Date V isits Requested Visits Authorized [id number] Closed Auto-Generate d Referral 10/14/2022 01/12/2023 1 1 [facility] for referral (narrative)* Diagnostic Procedure Only (Routine) - Closed Specialty Diagnoses / Procedures Referred By [facility]re [facility] Referred To Contact CT IMAGING Diagnoses Abnormal weight loss Procedures CT ABD/PEL W IVCON CT ABD & PELVIS W/CONTRAST Martha Boston PA-C [address] [place] [address] [place] [address] Referral ID Status Reason Start Date Expiration Date V isits Requested Visits Authorized [id number] Closed Auto-Generate d Referral 07/09/2022 08/08/2022 2 2 * MRI/CT (Routine) - Closed Specialty Diagnoses / Procedures Referred By [facility]re [facility] Referred To Contact CT IMAGING Diagnoses Abnormal weight loss Procedures CT CHEST W IVCON DIAGNOSTIC COMPUTED TOMOGRAPHY THORAX W/CONTRAST Martha Boston PA-C [address] [place] [address] [place] [address] Referral ID Status Reason Start Date Expiration Date V isits Requested Visits Authorized [id number] Closed Auto-Generate d Referral 07/09/2022 08/08/2022 1 1 [facility] for referral (narrative)* Diagnostic Procedure Only (Routine) - Closed Specialty Diagnoses / Procedures Referred By [facility] Referred To Contact US IMAGING Diagnoses Abnormal weight loss Procedures US ABD RT UPPER QUADRANT US ABDOMINAL REAL TIME W/IMAGE LIMITED Martha Boston PA-C [address] [place] [address] [place] [address] Referral ID Status Reason Start Date Expiration Date V isits Requested Visits Authorized [id number] Closed Auto-Generate d Referral 06/25/2022 07/25/2023 1 1 [facility] for referral (narrative)* Diagnostic Procedure Only (Urgent) - Closed Specialty Diagnoses / Procedures Referred By Contac t Referred To Contact XR IMAGING Diagnoses Hand pain, left Procedures XR HAND GENERAL 3V PA/LAT/OBL LEFT RADEX HAND MINIMUM 3 VIEWS Karin Hamm APRN.[employer]ER [address] [place] [address] [place] [address] Referral ID Status Reason Start Date Expiration Date V isits Requested Visits Authorized [id number] Closed Auto-Generate d Referral 12/22/2023 01/20/2025 1 1 * Diagnostic Procedure Only (Urgent) - Closed Specialty Diagnoses / Procedures Referred By Contac t Referred To Contact XR IMAGING Diagnoses Left forearm pain Procedures XR FOREARM GENERAL 2V AP/LAT LEFT RADEX FOREARM 2 VIEWS Karin Hamm APRN.[employer]OM[employer]ADER [address] [place] [address] [place] [address] Referral ID Status Reason Start Date Expiration Date V isits Requested Visits Authorized [id number] Closed Auto-Generate d Referral 12/22/2023 01/20/2025 1 1 [facility] for referral (narrative)* Diagnostic Procedure Only (Urgent) - Closed Specialty Diagnoses / Procedures Referred By Contac t Referred To Contact XR IMAGING Diagnoses Hand pain, left Procedures XR HAND GENERAL 3V PA/LAT/OBL LEFT RADEX HAND MINIMUM 3 VIEWS Karin Hamm APRN.THERMITE BOMB LOADER [address] [place] [address] [place] [address] Referral ID Status Reason Start Date Expiration Date V isits Requested Visits Authorized [id number] Closed Auto-Generate d Referral 12/22/2023 01/20/2025 1 1 * Diagnostic Procedure Only (Urgent) - Closed Specialty Diagnoses / Procedures Referred By Contac t Referred To Contact XR IMAGING Diagnoses Left forearm pain Procedures XR FOREARM GENERAL 2V AP/LAT LEFT RADEX FOREARM 2 VIEWS Karin Hamm APRN.THERMITE BOMB LOADER [address] [place] [address] [place] [address] Referral ID Status Reason Start Date Expiration Date V isits Requested Visits Authorized [id number] Closed Auto-Generate d Referral 12/22/2023 01/20/2025 1 1 [facility] for referral (narrative)* Diagnostic Procedure Only (Urgent) - Closed Specialty Diagnoses / Procedures Referred By Contac t Referred To Contact XR IMAGING Diagnoses Foot injury, left, initial encounter Procedures XR FOOT GENERAL 3V AP/LAT/OBL LEFT RADEX FOOT COMPLETE MINIMUM 3 VIEWS Miladys Butt, DATAPOWER DEVELOPER.THERMITE BOMB LOADER [address] [place] [address] [place] [address] Referral ID Status Reason Start Date Expiration Date V isits Requested Visits Authorized [id number] Closed Auto-Generate d Referral 09/23/2022 10/23/2023 1 1 [facility] for referral (narrative)* Diagnostic Procedure Only (Urgent) - Closed Specialty Diagnoses / Procedures Referred By Contac t Referred To Contact XR IMAGING Diagnoses Wrist pain, right Procedures XR WRIST GENERAL 3V PA/LAT/OBL RIGHT RADEX WRIST COMPLETE MINIMUM 3 VIEWS Bridget Joseph DATAPOWER DEVELOPER.THERMITE BOMB LOADER [address] [place] [address] [place] [address] Referral ID Status Reason Start Date Expiration Date V isits Requested Visits Authorized [id number] Closed Auto-Generate d Referral 07/24/2024 08/23/2025 1 1 [facility] for referral (narrative)* Diagnostic Procedure Only (Urgent) - Closed Specialty Diagnoses / Procedures Referred By Contac t Referred To Contact XR IMAGING Diagnoses Wrist pain, right Procedures XR WRIST GENERAL 3V PA/LAT/OBL RIGHT RADEX WRIST COMPLETE MINIMUM 3 VIEWS Bridget Joseph APRN.THERMITE BOMB LOADER [address] [place] [address] [place] [address] Referral ID Status Reason Start Date Expiration Date V isits Requested Visits Authorized [id number] Closed Auto-Generate d Referral 07/24/2024 08/23/2025 1 1 [facility] for referral (narrative)No reason for referral information [facility] Work Phone: Reason for visit Narrative* Outpatient Procedure (Routine) - Closed Specialty Diagnoses / Procedures Referred By Contac t Referred To Contact Diagnoses Anemia, unspecified type Procedures COLONOSCOPY DIAGNOSTIC COLONOSCOPY FLX DX W/COLLJ SPEC WHEN Thai Borges MD [address] [place] [address] Nlel Gillis MD [address] [facility] [address] Referral ID Status Reason Start Date Expiration Date V isits Requested Visits Authorized [id number] Closed Auto-Generate d Referral 10/14/2022 01/12/2023 1 1 [facility] for visit Narrative* Diagnostic Procedure Only (Routine) - Closed Specialty Diagnoses / Procedures Referred By Contac t Referred To Contact CT IMAGING Diagnoses Abnormal weight loss Procedures CT ABD/PEL W IVCON CT ABD & PELVIS W/CONTRAST Martha Boston, PARiccardoC [address] [place] [address] [place] [address] Referral ID Status Reason Start Date Expiration Date V isits Requested Visits Authorized [id number] Closed Auto-Generate d Referral 07/09/2022 08/08/2022 2 2 [facility] for visit Narrative* Diagnostic Procedure Only (Urgent) - Closed Specialty Diagnoses / Procedures Referred By Contac t Referred To Contact XR IMAGING Diagnoses Hand pain, left Procedures XR HAND GENERAL 3V PA/LAT/OBL LEFT RADEX HAND MINIMUM 3 VIEWS Karin Hamm, DATAPOWER DEVELOPER.THERMITE BOMB LOADER [address] [place] [address] [place] [address] Referral ID Status Reason Start Date Expiration Date V isits Requested Visits Authorized [id number] Closed Auto-Generate d Referral 12/22/2023 01/20/2025 1 1 [facility] for visit Narrative* Diagnostic Procedure Only (Urgent) - Closed Specialty Diagnoses / Procedures Referred By Contac t Referred To Contact XR IMAGING Diagnoses Foot injury, left, initial encounter Procedures XR FOOT GENERAL 3V AP/LAT/OBL LEFT RADEX FOOT COMPLETE MINIMUM 3 VIEWS Miladys Butt, DATAPOWER DEVELOPER.THERMITE BOMB LOADER [address] [place] [address] [place] [address] Referral ID Status Reason Start Date Expiration Date V isits Requested Visits Authorized [id number] Closed Auto-Generate d Referral 09/23/2022 10/23/2023 1 1 [facility] for visit Narrative* Diagnostic Procedure Only (Urgent) - Closed Specialty Diagnoses / Procedures Referred By Contac t Referred To Contact XR IMAGING Diagnoses Wrist pain, right Procedures XR WRIST GENERAL 3V PA/LAT/OBL RIGHT RADEX WRIST COMPLETE MINIMUM 3 VIEWS Bridget Joseph, DATAPOWER DEVELOPER.THERMITE BOMB LOADER [address] [place] [address] [place] [address] Referral ID Status Reason Start Date Expiration Date V isits Requested Visits Authorized [id number] Closed Auto-Generate d Referral 07/24/2024 08/23/2025 1 1 [facility] Summary Purpose Family History No Family History Records Found Relationship Condition Age at Onset Recorded Date/T maryam sister Coronary artery disease Unknown Cerebrovascular accident (CVA) Unknown Diabetes mellitus Unknown Myocardial infarction Unknown History of coronary artery bypass surgery Unknown mother Malignant neoplasm Unknown Advance Directives No Advanced Directives Records FoundDocuments on File Type Date Recorded 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 Advance Directive(s) Advance Directive(s) 02/20/2018 5:13 PM Advance Directive(s) 02/16/2018 12:54 PM Advance Directive(s) 11/07/2017 1:34 PM Advance Directive(s) 11/07/2017 4:10 PM Advance Directive(s) 11/07/2017 4:03 PM Advance Directive(s) 09/10/2017 6:38 AM Advance Directive(s) 11/20/2015 9:33 AM Advance Directive Response Recorded Date/ Time Advance Directives No December 13 6:59am Living Will No December 13, 2021 6:59am Power of Call Center Assistant No December 13 6:59am Advance Directive Response Recorded Date/ Time Advance Directives No December 13 6:59am Living Will No December 29, 2021 6:03pm Power of Call Center Assistant No December 29 6:03pm Advance Directive Response Recorded Date/ Time Advance Directives No February 08 8:08am Living Will No February 08, 2022 8:08am Power of Call Center Assistant No February 08 8:08am Advance Directive Response Recorded Date/ Time Advance Directives No February 11 8:44am Living Will No February 11, 2022 8:44am Power of Call Center Assistant No February 11 8:44am Documents on File Type Date Recorded 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 Advance Directive(s) Advance Directive(s) 02/20/2018 5:13 PM Advance Directive(s) 02/16/2018 12:54 PM Advance Directive(s) 11/07/2017 1:34 PM Advance Directive(s) 11/07/2017 4:10 PM Advance Directive(s) 11/07/2017 4:03 PM Advance Directive(s) 09/10/2017 6:38 AM Advance Directive(s) 11/20/2015 9:33 AM Advance Directive Response Recorded Date/ Time Advance Directives No February 11 8:44am Living Will No March 22, 2022 2:01pm Power of Call Center Assistant No March 22 2:01pm Documents on File Type Date Recorded 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 Advance Directive(s) 11/07/2017 4:03 PM Advance Directive Response Recorded Date/ Time Advance Directives No February 11 8:44am Living Will No May 28, 2022 4:31pm Power of Call Center Assistant No May 4:31pm Documents on File Type Date Recorded 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 Advance Directive(s) 11/07/2017 4:03 PM Advance Directive Response Recorded Date/ Time Advance Directives No February 11 8:44am Living Will No January 20, 2023 4 :39pm Power of Call Center Assistant No January 20, 2023 4:39pm Advance Directive Response Recorded Date/ Time Advance Directives No February 11 7:44am Living Will No October 09 7:02pm Power of Call Center Assistant No October 09, 2023 7:02pm Advance Directive Response Recorded Date/ Time Name of Medical Power of Call Center Assistant priscilla brock October 09, 2023 11:21pm Advance Directives No February 11 7:44am Living Will Yes October 09 11:21pm Power of Call Center Assistant Yes October 09, 2023 11:21pm Advance Directive Response Recorded Date/ Time Advance Directives No February 11 7:44am Living Will No October 15 8:36am Power of Call Center Assistant No October 15, 2023 8:36am Name of Medical Power of Call Center Assistant priscilla brock October 09, 2023 11:21pm Advance Directive Response Recorded Date/ Time Name of Medical Power of Call Center Assistant priscilla brock October 09, 2023 11:21pm Advance Directives No February 11 7:44am Living Will No October 23 024 9:23am Power of Call Center Assistant No October 23, 2023 9:23am Advance Directive Response Recorded Date/ Time Name of Medical Power of Call Center Assistant priscilla brock October 10, 2023 12:21am Advance Directives No November 23 024 7:06am Living Will No November 24, 2023 7:06am Power of Call Center Assistant No November 23 7:06am Advance Directives on File No November 19, 2023 1:14pm Advance Directive Response Recorded Date/ Time Name of Medical Power of Call Center Assistant priscilla brock October 10, 2023 12:21am Advance Directives on File No November 19, 2023 1:14pm Advance Directives No November 23 7:06am Living Will No December 03, 2023 7:36pm Power of Call Center Assistant No December 02 7:36pm Advance Directive Response Recorded Date/ Time Living Will No December 03, 2023 7:36pm Power of Call Center Assistant No December 02 7:36pm Living Will No August 16 8:04am Power of Call Center Assistant No August 16, 2024 8:04am Advance Directives No August 8:04am Living Will No August 27 10:44am Power of Call Center Assistant No August 27, 2024 10:44am Advance Directive Response Recorded Date/ Time Living Will No August 16 8:04am Do you have a Healthcare Power of Call Center Assistant? No August 16, 2024 8:04am Advance Directives No August 8:04am Living Will No August 27 10:44am Do you have a Healthcare Power of Call Center Assistant? No August 27, 2024 10:44am Advance Directive Response Recorded Date/ Time Advance Directives No August 8:04am Advance Directive Response Recorded Date/ Time Living Will No December 03, 2023 7:36pm Do you have a Healthcare Power of Call Center Assistant? No December 03, 2023 7:36pm Advance Directives No August 8:04am Advance Directive Response Recorded Date/ Time Living Will No December 03, 2023 7:36pm Do you have a Healthcare Power of Call Center Assistant? No December 03, 2023 7:36pm Do you have a Healthcare Power of Call Center Assistant? No March 05, 2025 11:22am Advance Directives No August 8:04am Chief Complaint and Reason for Visit Chief Complaint COVID VACCINE HEAD INJURY HEAD INJURY SYNCOPE *LIYA* HEAD PAIN FU FROM [facility] ER. SYNCOPE/COLLAPSE Reason for Visit Bilateral carotid ar mike stenosis Syncope Essential (primary) hypertension Hyperlipidemia Chief Complaint HEAD INJURY HEAD INJURY SYNCOPE *LIYA* HEAD PAIN FU FROM [facility] ER. SYNCOPE/COLLAPSE E ORDERS hypotension Reason for Visit Bilateral carotid ar mike stenosis Syncope Essential (primary) hypertension Hyperlipidemia Chief Complaint HEAD INJURY HEAD INJURY SYNCOPE *LIYA* HEAD PAIN FU FROM [facility] ER. SYNCOPE/COLLAPSE E ORDERS hypotension PER KEENAN ANGIOEDEMA Reason for Visit Bilateral carotid ar mike stenosis Syncope Essential (primary) hypertension Hyperlipidemia History of loop recorder Syncope Chief Complaint HEAD INJURY HEAD INJURY SYNCOPE *LIYA* HEAD PAIN FU FROM [facility] ER. SYNCOPE/COLLAPSE E ORDERS hypotension PER KEENAN ANGIOEDEMA remote ILR f/u 2 m fu Remote ILR ALERT CHEST PAIN, CAD HX CHEST PAIN, CAD HX Reason for Visit Bilateral carotid ar mike stenosis Syncope Essential (primary) hypertension Hyperlipidemia History of loop recorder Syncope History of loop recorder Syncope Atherosclerotic heart disease of solomon coronary artery without angina pectoris Bilateral carotid artery stenosis History of loop recorder Hypotension Syncope Atherosclerotic heart disease of solomon coronary artery without angina pectoris Essential (primary) hypertension History of coronary artery stent placement Hyperlipidemia History of loop recorder Syncope Chief Complaint HEAD INJURY HEAD INJURY SYNCOPE *LIYA* HEAD PAIN FU FROM [facility] ER. SYNCOPE/COLLAPSE E ORDERS hypotension PER KEENAN ANGIOEDEMA remote ILR f/u 2 m fu Remote ILR ALERT CHEST PAIN, CAD HX CHEST PAIN, CAD HX CAD ,CP, HX OF STENTS CAD ,CP, HX OF STENTS Reason for Visit Bilateral carotid ar mike stenosis Syncope Essential (primary) hypertension Hyperlipidemia History of loop recorder Syncope History of loop recorder Syncope Atherosclerotic heart disease of solomon coronary artery without angina pectoris Bilateral carotid artery stenosis History of loop recorder Hypotension Syncope Atherosclerotic heart disease of solomon coronary artery without angina pectoris Essential (primary) hypertension History of coronary artery stent placement Hyperlipidemia History of loop recorder Syncope Bilateral carotid artery stenosis Chest pain Atherosclerotic heart disease of solomon coronary artery without angina pectoris Essential (primary) [...] loop recorder Syncope Atherosclerotic heart disease of solomon coronary artery without angina pectoris Bilateral carotid artery stenosis History of loop recorder Hypotension Syncope Atherosclerotic heart disease of solomon coronary artery without angina pectoris Essential (primary) hypertension History of coronary artery stent placement Hyperlipidemia History of loop recorder Syncope Bilateral carotid artery stenosis Chest pain Atherosclerotic heart disease of solomon coronary artery without angina pectoris Essential (primary) [...] for Visit Atherosclerotic hear t disease of solomon coronary artery without angina pectoris History of loop recorder Syncope Atherosclerotic heart disease of solomon coronary artery without angina pectoris Bilateral carotid artery stenosis Essential (primary) hypertension History of coronary artery stent placement History of loop recorder Hyperlipidemia Hypotension Syncope History of loop recorder Syncope Atherosclerotic heart disease of solomon coronary artery without angina pectoris Bilateral carotid artery stenosis Essential (primary) hypertension History of coronary artery stent placement Hyperlipidemia Syncope Atherosclerotic heart disease of solomon coronary artery without angina pectoris Bilateral carotid artery stenosis History of coronary artery stent placement History of loop recorder Hyperlipidemia Hypotension Syncope Chief Complaint CAD ,CP, HX OF STENT S CAD ,CP, HX OF STENTS fall 1 wk ago, uncontrolled shaking Adrenal INT LABS 6 M FU CORTISOL STIM TEST CP Reason for Visit Atherosclerotic hear t disease of solomon coronary artery without angina pectoris Bilateral carotid artery stenosis Essential (primary) hypertension History of coronary artery stent placement Hyperlipidemia Syncope Atherosclerotic heart disease of solomon coronary artery without angina pectoris Bilateral carotid artery stenosis History of coronary artery stent placement History of loop recorder Hyperlipidemia Hypotension Syncope Chief Complaint 1 Y FU Atherosclerotic heart disease of solomon coronary a Atherosclerotic heart disease of solomon coronary a Amb Documentation Reason for Visit Atherosclerotic hear t disease of solomon coronary artery without angina pectoris Bilateral carotid [...] pain Unstable angina Atherosclerotic heart disease of solomon coronary artery without angina pectoris Bilateral carotid [...] pain Unstable angina Atherosclerotic heart disease of solomon coronary artery without angina pectoris Bilateral carotid [...] pain Unstable angina Atherosclerotic heart disease of solomon coronary artery without angina pectoris Bilateral carotid [...] pain Unstable angina Atherosclerotic heart disease of solomon coronary artery without angina pectoris Bilateral carotid [...] pain Unstable angina Atherosclerotic heart disease of solomon coronary artery without angina pectoris Bilateral carotid artery stenosis Hypotension Syncope Chest pain Chest pain, atypical Atherosclerotic heart disease of solomon coronary artery without angina pectoris Bilateral carotid artery stenosis Hypotension Syncope Chief Complaint Admit Date 3 M FU July 28, 2024 8:10am CHEST X-RAY, E-ORDER July 28, 2024 9:22am CHEST PAIN August 16, 2024 6:45am chest pain, sob, diarrhea August 27, 2024 9:39am S/P [facility] 08/16 Cath September 08, 2024 12 [...] sob, diarrhea August 27, 2024 9:39am S/P [facility] 08/16 Cath September 08, 2024 12 :50pm CERVICAL RADICULOPATHY October 23 7:20am Other hypersomnia November 09, 2024 7:5 1pm 3 M FU December 08, 2024 8:09 am INT LABS December 08, 2024 9:01 am Reason for Visit Admit Date Bilateral carotid artery stenosis Januar y 2024 12:50pm History of coronary artery stent placeme nt September 08, 2024 12:50pm Hyperlipidemia September 08, 2024 12 :50pm Hypotension September 08, 2024 12 :50pm Syncope September 08, 2024 12 :50pm Claudication of left lower extremity Apr 2024 8:09am Bilateral carotid artery stenosis December 08, 2024 8:09am History of coronary artery stent placeme nt December 08, 2024 8:09am Hyperlipidemia December 08, 2024 8:09 am Hypotension December 08, 2024 8:09 am Syncope December 08, 2024 8:09 am Chief Complaint Admit Date S/P [facility] 08/16 Cath September 08, 2024 12 [...] am Claudication of left lower extremity Bandar e 2024 10:55am Bilateral carotid artery stenosis January 312024 10:55am History of coronary artery stent placeme nt February 22, 2025 10:55am Hyperlipidemia February 22, 2025 10:5 5am Hypotension February 22, 2025 10:5 5am Syncope February 22, 2025 10:5 5am Chief Complaint Admit Date 3 M FU December 08, 2024 8:09 am INT LABS December 08, 2024 9:01 am DIZZINESS,PERIPHERAL VASCULAR DISEASE UN SPECIFIED December 23, 2024 7:30am 1 Y FU February 22, 2025 10:5 5am cp March 05, 2025 11:10 am syncope and collapse March 10, 2025 5:5 9am Reason for Referral Specialty Diagnoses / Procedures Referred By Contac t Referred To Contact Neurology Diagnoses Orthostatic hypotension Procedures CONSULT TO NEUROLOGY OFFICE/OUTPATIENT [facility] 60-74 MINUTES Jenna Jim APRN.THERMITE BOMB LOADER [address] [place] [id number] Referral ID Status Reason Start Date Expiration Date Visits Requested Visits Authorized [id number] Pending Review PCP Requested Referral 02/22/2022 02/22/2023 1 1 Specialty Diagnoses / Procedures Referred By Contac t Referred To Contact CT IMAGING Diagnoses Injury of head, initial encounter Procedures CT BRAIN WO IVCON CT HEAD/BRAIN W/O CONTRAST MATERIAL Jenna Jim APRN.THERMITE BOMB LOADER [address] [place] [address] Ct Imaging Referral ID Status Reason Start Date Expiration Date V isits Requested Visits Authorized [id number] Closed Auto-Generate d Referral 03/19/2022 04/18/2023 1 1 Specialty Diagnoses / Procedures Referred By Contac t Referred To Contact General Surgery Diagnoses Anemia, unspecified type Procedures CONSULT TO GENERAL SURGERY OFFICE/OUTPATIENT [facility] 60-74 MINUTES Martha Boston PA-C [address] [place] [address] Referral ID Status Reason Start Date Expiration Date Visits Requested Visits Authorized [id number] Pending Review PCP Requested Referral 06/26/2023 1 1 Specialty Diagnoses / Procedures Referred By Contac t Referred To Contact CT IMAGING Diagnoses Abnormal weight loss Procedures CT ABD/PEL W IVCON CT ABD & PELVIS W/CONTRAST Martha Boston PA-C [address] [place] [address] Ct Imaging Referral ID Status Reason Start Date Expiration Date Visits Requested Visits Authorized [id number] Pending Review Auto-Generat ed Referral 07/02/2022 08/01/2023 1 1 Specialty Diagnoses / Procedures Referred By Contac t Referred To Contact CT IMAGING Diagnoses Abnormal weight loss Procedures CT CHEST W IVCON DIAGNOSTIC COMPUTED TOMOGRAPHY THORAX W/CONTRAST Martha Boston PA-C [address] [place] [address] Ct Imaging Referral ID Status Reason Start Date Expiration Date Visits Requested Visits Authorized [id number] Pending Review Auto-Generat ed Referral 07/02/2022 08/01/2023 1 1 Specialty Diagnoses / Procedures Referred By Contac t Referred To Contact Urology Diagnoses Bladder wall thickening Abnormal weight loss Procedures CONSULT TO UROLOGY OFFICE/OUTPATIENT [facility] 60-74 MINUTES Martha Boston PA-C [address] [place] [address] Referral ID Status Reason Start Date Expiration Date Visits Requested Visits Authorized [id number] Pending Review PCP Requested Referral 07/10/2022 07/10/2023 1 1 Specialty Diagnoses / Procedures Referred By Contac t Referred To Contact Neurology Diagnoses Type 2 diabetes mellitus with diabetic neuropathy, without long-term current use of insulin (HCC) Procedures CONSULT TO NEUROLOGY Franny Catalan APRN.CNP [address] [place] [address] Lemuel Troy Jr., MD [address] [place] [address] Referral ID Status Reason Start Date Expiration Date Visits Requested Visits Authorized [id number] Ref Not Required PCP Requested Referral 07/30/2023 1 1 Specialty Diagnoses / Procedures Referred By Contac t Referred To Contact Ophthalmology Diagnoses Type 2 diabetes mellitus with diabetic neuropathy, without long-term current use of insulin (HCC) Procedures CONSULT TO OPHTHALMOLOGY OFFICE/OUTPATIENT [facility] 60-74 MINUTES Martha Boston PA-C [address] [place] [address] Referral ID Status Reason Start Date Expiration Date Visits Requested Visits Authorized [id number] Pending Review PCP Requested Referral 11/28/2022 11/28/2023 1 1 Specialty Diagnoses / Procedures Referred By Contac t Referred To Contact Diagnoses Hypersomnolence Snores Sleep initiation dysfunction Procedures CONSULT TO SLEEP MEDICINE - ADULT OFFICE/OUTPATIENT [facility] 60 MINUTES Nadir Grady MD [address] [place] [phone] Referral ID Status Reason Start Date Expiration Date Visits Requested Visits Authorized [id number] Authorized PCP Requested Referral 09/06/2024 09/06/2025 1 1 Specialty Diagnoses / Procedures Referred By Contac t Referred To Contact Pain Management Diagnoses Bilateral occipital neuralgia Cervicogenic headache Procedures CONSULT TO PAIN MGT OFFICE/OUTPATIENT [facility] 60 MINUTES Nadir Grady MD [address] [place] [id number] Referral ID Status Reason Start Date Expiration Date Visits Requested Visits Authorized [id number] Authorized PCP Requested Referral 09/06/2024 09/06/2025 1 1 Specialty Diagnoses / Procedures Referred By Contac t Referred To Contact MR IMAGING Diagnoses Thunderclap headache New onset headache Procedures MRI BRAIN WO/W IVCON MRI BRAIN BRAIN STEM W/O W/CONTRAST MATERIAL Martha Boston PA-C [address] [place] [address] [place] [address] Referral ID Status Reason Start Date Expiration Date Visits Requested Visits Authorized [id number] Pending Review Auto-Genera melanie Referral Patient Cleared - Admin/Chair man/Directo r advise to proceed or did not respond 10/07/2024 11/06/2025 1 1 Referral ID Status Reason Start Date Expiration Date V isits Requested Visits Authorized [id number] Closed Auto-Generat ed Referral Patient Cleared - [...] Date Dose Rate Site benzocaine 20% 4 Onamia (TOPEX) 4 Onamia, TOPICAL, ONCE, 1 dose, On Fri10/14/22 at [...] section and content) DATE CREATED AUTHOR 02/24/2018 [facility] DATE CREATED AUTHOR AUTHOR'S ORGANIZ ATION 04/06/2022 [facility]ter DATE CREATED AUTHOR AUTHOR'S ORGANIZ ATION 08/25/2022 [facility] DATE CREATED AUTHOR AUTHOR'S ORGANIZ ATION 10/20/2022 DATE CREATED AUTHOR AUTHOR'S ORGANIZ ATION 03/10/2025 [facility] DATE CREATED AUTHOR AUTHOR'S ORGANIZ ATION 03/19/2025 [facility] Source Comments (unrecognize d section and content) In the event this informatio n is protected by the Federal Confidentiality of Alcohol and Drug Abuse Patient Records regulations: The Federal rules restrict any use of the information to criminally investigate or prosecute any alcohol or drug abuse patient.[facility] the event this information is protected by the Federal Confidentiality of Alcohol and Drug Abuse Patient Records regulations: The Federal rules restrict any use of the information to criminally investigate or prosecute any alcohol or drug abuse patient.[facility] the event this information is protected by the Federal Confidentiality of Alcohol and Drug Abuse Patient Records regulations: The Federal rules restrict any use of the information to criminally investigate or prosecute any alcohol or drug abuse patient.[facility] the event this information is protected by the Federal Confidentiality of Alcohol and Drug Abuse Patient Records regulations: The Federal rules restrict any use of the information to criminally investigate or prosecute any alcohol or drug abuse patient.[facility] the event this information is protected by the Federal Confidentiality of Alcohol and Drug Abuse Patient Records regulations: The Federal rules restrict any use of the information to criminally investigate or prosecute any alcohol or drug abuse patient.[facility] the event this information is protected by the Federal Confidentiality of Alcohol and Drug Abuse Patient Records regulations: The Federal rules restrict any use of the information to criminally investigate or prosecute any alcohol or drug abuse patient.[facility] the event this information is protected by the Federal Confidentiality of Alcohol and Drug Abuse Patient Records regulations: The Federal rules restrict any use of the information to criminally investigate or prosecute any alcohol or drug abuse patient.[facility] the event this information is protected by the Federal Confidentiality of Alcohol and Drug Abuse Patient Records regulations: The Federal rules restrict any use of the information to criminally investigate or prosecute any alcohol or drug abuse patient.[facility] the event this information is protected by the Federal Confidentiality of Alcohol and Drug Abuse Patient Records regulations: The Federal rules restrict any use of the information to criminally investigate or prosecute any alcohol or drug abuse patient.[facility] the event this information is protected by the Federal Confidentiality of Alcohol and Drug Abuse Patient Records regulations: The Federal rules restrict any use of the information to criminally investigate or prosecute any alcohol or drug abuse patient.[facility] the event this information is protected by the Federal Confidentiality of Alcohol and Drug Abuse Patient Records regulations: The Federal rules restrict any use of the information to criminally investigate or prosecute any alcohol or drug abuse patient.[facility] the event this information is protected by the Federal Confidentiality of Alcohol and Drug Abuse Patient Records regulations: The Federal rules restrict any use of the information to criminally investigate or prosecute any alcohol or drug abuse patient.[facility] the event this information is protected by the Federal Confidentiality of Alcohol and Drug Abuse Patient Records regulations: The Federal rules restrict any use of the information to criminally investigate or prosecute any alcohol or drug abuse patient.[facility] the event this information is protected by the Federal Confidentiality of Alcohol and Drug Abuse Patient Records regulations: The Federal rules restrict any use of the information to criminally investigate or prosecute any alcohol or drug abuse patient.[facility] the event this information is protected by the Federal Confidentiality of Alcohol and Drug Abuse Patient Records regulations: The Federal rules restrict any use of the information to criminally investigate or prosecute any alcohol or drug abuse patient.[facility] the event this information is protected by the Federal Confidentiality of Alcohol and Drug Abuse Patient Records regulations: The Federal rules restrict any use of the information to criminally investigate or prosecute any alcohol or drug abuse patient.[facility] the event this information is protected by the Federal Confidentiality of Alcohol and Drug Abuse Patient Records regulations: The Federal rules restrict any use of the information to criminally investigate or prosecute any alcohol or drug abuse patient.[facility] the event this information is protected by the Federal Confidentiality of Alcohol and Drug Abuse Patient Records regulations: The Federal rules restrict any use of the information to criminally investigate or prosecute any alcohol or drug abuse patient.[facility] the event this information is protected by the Federal Confidentiality of Alcohol and Drug Abuse Patient Records regulations: The Federal rules restrict any use of the information to criminally investigate or prosecute any alcohol or drug abuse patient.[facility] the event this information is protected by the Federal Confidentiality of Alcohol and Drug Abuse Patient Records regulations: The Federal rules restrict any use of the information to criminally investigate or prosecute any alcohol or drug abuse patient.[facility] the event this information is protected by the Federal Confidentiality of Alcohol and Drug Abuse Patient Records regulations: The Federal rules restrict any use of the information to criminally investigate or prosecute any alcohol or drug abuse patient.[facility] the event this information is protected by the Federal Confidentiality of Alcohol and Drug Abuse Patient Records regulations: The Federal rules restrict any use of the information to criminally investigate or prosecute any alcohol or drug abuse patient.[facility]In the event this information is protected by the Federal Confidentiality of Alcohol and Drug Abuse Patient Records regulations: The Federal rules restrict any use of the information to criminally investigate or prosecute any alcohol or drug abuse patient.[facility]In the event this information is protected by the Federal Confidentiality of Alcohol and Drug Abuse Patient Records regulations: The Federal rules restrict any use of the information to criminally investigate or prosecute any alcohol or drug abuse patient.[facility]In the event this information is protected by the Federal Confidentiality of Alcohol and Drug Abuse Patient Records regulations: The Federal rules restrict any use of the information to criminally investigate or prosecute any alcohol or drug abuse patient.[facility] the event this information is protected by the Federal Confidentiality of Alcohol and Drug Abuse Patient Records regulations: The Federal rules restrict any use of the information to criminally investigate or prosecute any alcohol or drug abuse patient.[facility]In the event this information is protected by the Federal Confidentiality of Alcohol and Drug Abuse Patient Records regulations: The Federal rules restrict any use of the information to criminally investigate or prosecute any alcohol or drug abuse patient.[facility]In the event this information is protected by the Federal Confidentiality of Alcohol and Drug Abuse Patient Records regulations: The Federal rules restrict any use of the information to criminally investigate or prosecute any alcohol or drug abuse patient.[facility]In the event this information is protected by the Federal Confidentiality of Alcohol and Drug Abuse Patient Records regulations: The Federal rules restrict any use of the information to criminally investigate or prosecute any alcohol or drug abuse patient.[facility]In the event this information is protected by the Federal Confidentiality of Alcohol and Drug Abuse Patient Records regulations: The Federal rules restrict any use of the information to criminally investigate or prosecute any alcohol or drug abuse patient.[facility]In the event this information is protected by the Federal Confidentiality of Alcohol and Drug Abuse Patient Records regulations: The Federal rules restrict any use of the information to criminally investigate or prosecute any alcohol or drug abuse patient.[facility]In the event this information is protected by the Federal Confidentiality of Alcohol and Drug Abuse Patient Records regulations: The Federal rules restrict any use of the information to criminally investigate or prosecute any alcohol or drug abuse patient.[facility]In the event this information is protected by the Federal Confidentiality of Alcohol and Drug Abuse Patient Records regulations: The Federal rules restrict any use of the information to criminally investigate or prosecute any alcohol or drug abuse patient.[facility] the event this information is protected by the Federal Confidentiality of Alcohol and Drug Abuse Patient Records regulations: The Federal rules restrict any use of the information to criminally investigate or prosecute any alcohol or drug abuse patient.[facility]In the event this information is protected by the Federal Confidentiality of Alcohol and Drug Abuse Patient Records regulations: The Federal rules restrict any use of the information to criminally investigate or prosecute any alcohol or drug abuse patient.[facility]In the event this information is protected by the Federal Confidentiality of Alcohol and Drug Abuse Patient Records regulations: The Federal rules restrict any use of the information to criminally investigate or prosecute any alcohol or drug abuse patient.[facility]In the event this information is protected by the Federal Confidentiality of Alcohol and Drug Abuse Patient Records regulations: The Federal rules restrict any use of the information to criminally investigate or prosecute any alcohol or drug abuse patient.[facility]In the event this information is protected by the Federal Confidentiality of Alcohol and Drug Abuse Patient Records regulations: The Federal rules restrict any use of the information to criminally investigate or prosecute any alcohol or drug abuse patient.[facility]In the event this information is protected by the Federal Confidentiality of Alcohol and Drug Abuse Patient Records regulations: The Federal rules restrict any use of the information to criminally investigate or prosecute any alcohol or drug abuse patient.[facility]In the event this information is protected by the Federal Confidentiality of Alcohol and Drug Abuse Patient Records regulations: The Federal rules restrict any use of the information to criminally investigate or prosecute any alcohol or drug abuse patient.[facility]In the event this information is protected by the Federal Confidentiality of Alcohol and Drug Abuse Patient Records regulations: The Federal rules restrict any use of the information to criminally investigate or prosecute any alcohol or drug abuse patient.[facility]In the event this information is protected by the Federal Confidentiality of Alcohol and Drug Abuse Patient Records regulations: The Federal rules restrict any use of the information to criminally investigate or prosecute any alcohol or drug abuse patient.[facility]In the event this information is protected by the Federal Confidentiality of Alcohol and Drug Abuse Patient Records regulations: The Federal rules restrict any use of the information to criminally investigate or prosecute any alcohol or drug abuse patient.[facility]In the event this information is protected by the Federal Confidentiality of Alcohol and Drug Abuse Patient Records regulations: The Federal rules restrict any use of the information to criminally investigate or prosecute any alcohol or drug abuse patient.[facility]In the event this information is protected by the Federal Confidentiality of Alcohol and Drug Abuse Patient Records regulations: The Federal rules restrict any use of the information to criminally investigate or prosecute any alcohol or drug abuse patient.[facility]In the event this information is protected by the Federal Confidentiality of Alcohol and Drug Abuse Patient Records regulations: The Federal rules restrict any use of the information to criminally investigate or prosecute any alcohol or drug abuse patient.[facility]In the event this information is protected by the Federal Confidentiality of Alcohol and Drug Abuse Patient Records regulations: The Federal rules restrict any use of the information to criminally investigate or prosecute any alcohol or drug abuse patient.[facility]In the event this information is protected by the Federal Confidentiality of Alcohol and Drug Abuse Patient Records regulations: The Federal rules restrict any use of the information to criminally investigate or prosecute any alcohol or drug abuse patient.[facility]In the event this information is protected by the Federal Confidentiality of Alcohol and Drug Abuse Patient Records regulations: The Federal rules restrict any use of the information to criminally investigate or prosecute any alcohol or drug abuse patient.[facility]In the event this information is protected by the Federal Confidentiality of Alcohol and Drug Abuse Patient Records regulations: The Federal rules restrict any use of the information to criminally investigate or prosecute any alcohol or drug abuse patient.[facility]In the event this information is protected by the Federal Confidentiality of Alcohol and Drug Abuse Patient Records regulations: The Federal rules restrict any use of the information to criminally investigate or prosecute any alcohol or drug abuse patient.[facility]In the event this information is protected by the Federal Confidentiality of Alcohol and Drug Abuse Patient Records regulations: The Federal rules restrict any use of the information to criminally investigate or prosecute any alcohol or drug abuse patient.[facility]In the event this information is protected by the Federal Confidentiality of Alcohol and Drug Abuse Patient Records regulations: The Federal rules restrict any use of the information to criminally investigate or prosecute any alcohol or drug abuse patient.[facility]In the event this information is protected by the Federal Confidentiality of Alcohol and Drug Abuse Patient Records regulations: The Federal rules restrict any use of the information to criminally investigate or prosecute any alcohol or drug abuse patient.[facility]In the event this information is protected by the Federal Confidentiality of Alcohol and Drug Abuse Patient Records regulations: The Federal rules restrict any use of the information to criminally investigate or prosecute any alcohol or drug abuse patient.[facility]In the event this information is protected by the Federal Confidentiality of Alcohol and Drug Abuse Patient Records regulations: The Federal rules restrict any use of the information to criminally investigate or prosecute any alcohol or drug abuse patient.[facility]In the event this information is protected by the Federal Confidentiality of Alcohol and Drug Abuse Patient Records regulations: The Federal rules restrict any use of the information to criminally investigate or prosecute any alcohol or drug abuse patient.[facility]In the event this information is protected by the Federal Confidentiality of Alcohol and Drug Abuse Patient Records regulations: The Federal rules restrict any use of the information to criminally investigate or prosecute any alcohol or drug abuse patient.[facility]In the event this information is protected by the Federal Confidentiality of Alcohol and Drug Abuse Patient Records regulations: The Federal rules restrict any use of the information to criminally investigate or prosecute any alcohol or drug abuse patient.[facility]In the event this information is protected by the Federal Confidentiality of Alcohol and Drug Abuse Patient Records regulations: The Federal rules restrict any use of the information to criminally investigate or prosecute any alcohol or drug abuse patient.[facility]In the event this information is protected by the Federal Confidentiality of Alcohol and Drug Abuse Patient Records regulations: The Federal rules restrict any use of the information to criminally investigate or prosecute any alcohol or drug abuse patient.[facility]In the event this information is protected by the Federal Confidentiality of Alcohol and Drug Abuse Patient Records regulations: The Federal rules restrict any use of the information to criminally investigate or prosecute any alcohol or drug abuse patient.[facility]In the event this information is protected by the Federal Confidentiality of Alcohol and Drug Abuse Patient Records regulations: The Federal rules restrict any use of the information to criminally investigate or prosecute any alcohol or drug abuse patient.[facility]In the event this information is protected by the Federal Confidentiality of Alcohol and Drug Abuse Patient Records regulations: The Federal rules restrict any use of the information to criminally investigate or prosecute any alcohol or drug abuse patient.[facility]In the event this information is protected by the Federal Confidentiality of Alcohol and Drug Abuse Patient Records regulations: The Federal rules restrict any use of the information to criminally investigate or prosecute any alcohol or drug abuse patient.[facility]In the event this information is protected by the Federal Confidentiality of Alcohol and Drug Abuse Patient Records regulations: The Federal rules restrict any use of the information to criminally investigate or prosecute any alcohol or drug abuse patient.[facility]In the event this information is protected by the Federal Confidentiality of Alcohol and Drug Abuse Patient Records regulations: The Federal rules restrict any use of the information to criminally investigate or prosecute any alcohol or drug abuse patient.[facility]In the event this information is protected by the Federal Confidentiality of Alcohol and Drug Abuse Patient Records regulations: The Federal rules restrict any use of the information to criminally investigate or prosecute any alcohol or drug abuse patient.[facility]In the event this information is protected by the Federal Confidentiality of Alcohol and Drug Abuse Patient Records regulations: The Federal rules restrict any use of the information to criminally investigate or prosecute any alcohol or drug abuse patient.[facility]In the event this information is protected by the Federal Confidentiality of Alcohol and Drug Abuse Patient Records regulations: The Federal rules restrict any use of the information to criminally investigate or prosecute any alcohol or drug abuse patient.[facility]In the event this information is protected by the Federal Confidentiality of Alcohol and Drug Abuse Patient Records regulations: The Federal rules restrict any use of the information to criminally investigate or prosecute any alcohol or drug abuse patient.[facility]In the event this information is protected by the Federal Confidentiality of Alcohol and Drug Abuse Patient Records regulations: The Federal rules restrict any use of the information to criminally investigate or prosecute any alcohol or drug abuse patient.[facility]In the event this information is protected by the Federal Confidentiality of Alcohol and Drug Abuse Patient Records regulations: The Federal rules restrict any use of the information to criminally investigate or prosecute any alcohol or drug abuse patient.[facility]In the event this information is protected by the Federal Confidentiality of Alcohol and Drug Abuse Patient Records regulations: The Federal rules restrict any use of the information to criminally investigate or prosecute any alcohol or drug abuse patient.[facility]In the event this information is protected by the Federal Confidentiality of Alcohol and Drug Abuse Patient Records regulations: The Federal rules restrict any use of the information to criminally investigate or prosecute any alcohol or drug abuse patient.[facility]In the event this information is protected by the Federal Confidentiality of Alcohol and Drug Abuse Patient Records regulations: The Federal rules restrict any use of the information to criminally investigate or prosecute any alcohol or drug abuse patient.[facility]In the event this information is protected by the Federal Confidentiality of Alcohol and Drug Abuse Patient Records regulations: The Federal rules restrict any use of the information to criminally investigate or prosecute any alcohol or drug abuse patient.[facility]In the event this information is protected by the Federal Confidentiality of Alcohol and Drug Abuse Patient Records regulations: The Federal rules restrict any use of the information to criminally investigate or prosecute any alcohol or drug abuse patient.[facility]In the event this information is protected by the Federal Confidentiality of Alcohol and Drug Abuse Patient Records regulations: The Federal rules restrict any use of the information to criminally investigate or prosecute any alcohol or drug abuse patient.[facility]In the event this information is protected by the Federal Confidentiality of Alcohol and Drug Abuse Patient Records regulations: The Federal rules restrict any use of the information to criminally investigate or prosecute any alcohol or drug abuse patient.[facility]In the event this information is protected by the Federal Confidentiality of Alcohol and Drug Abuse Patient Records regulations: The Federal rules restrict any use of the information to criminally investigate or prosecute any alcohol or drug abuse patient.[facility]In the event this information is protected by the Federal Confidentiality of Alcohol and Drug Abuse Patient Records regulations: The Federal rules restrict any use of the information to criminally investigate or prosecute any alcohol or drug abuse patient.[facility]In the event this information is protected by the Federal Confidentiality of Alcohol and Drug Abuse Patient Records regulations: The Federal rules restrict any use of the information to criminally investigate or prosecute any alcohol or drug abuse patient.[facility]In the event this information is protected by the Federal Confidentiality of Alcohol and Drug Abuse Patient Records regulations: The Federal rules restrict any use of the information to criminally investigate or prosecute any alcohol or drug abuse patient.[facility]In the event this information is protected by the Federal Confidentiality of Alcohol and Drug Abuse Patient Records regulations: The Federal rules restrict any use of the information to criminally investigate or prosecute any alcohol or drug abuse patient.[facility]In the event this information is protected by the Federal Confidentiality of Alcohol and Drug Abuse Patient Records regulations: The Federal rules restrict any use of the information to criminally investigate or prosecute any alcohol or drug abuse patient.[facility] the event this information is protected by the Federal Confidentiality of Alcohol and Drug Abuse Patient Records regulations: The Federal rules restrict any use of the information to criminally investigate or prosecute any alcohol or drug abuse patient.[facility]burgIn the event this information is protected by the Federal Confidentiality of Alcohol and Drug Abuse Patient Records regulations: The Federal rules restrict any use of the information to criminally investigate or prosecute any alcohol or drug abuse patient.[facility]burgIn the event this information is protected by the Federal Confidentiality of Alcohol and Drug Abuse Patient Records regulations: The Federal rules restrict any use of the information to criminally investigate or prosecute any alcohol or drug abuse patient.[facility]burgIn the event this information is protected by the Federal Confidentiality of Alcohol and Drug Abuse Patient Records regulations: The Federal rules restrict any use of the information to criminally investigate or prosecute any alcohol or drug abuse patient.[facility]burgIn the event this information is protected by the Federal Confidentiality of Alcohol and Drug Abuse Patient Records regulations: The Federal rules restrict any use of the information to criminally investigate or prosecute any alcohol or drug abuse patient.[facility]burgIn the event this information is protected by the Federal Confidentiality of Alcohol and Drug Abuse Patient Records regulations: The Federal rules restrict any use of the information to criminally investigate or prosecute any alcohol or drug abuse patient.[facility]burgIn the event this information is protected by the Federal Confidentiality of Alcohol and Drug Abuse Patient Records regulations: The Federal rules restrict any use of the information to criminally investigate or prosecute any alcohol or drug abuse patient.[facility]burgIn the event this information is protected by the Federal Confidentiality of Alcohol and Drug Abuse Patient Records regulations: The Federal rules restrict any use of the information to criminally investigate or prosecute any alcohol or drug abuse patient.[facility]burgIn the event this information is protected by the Federal Confidentiality of Alcohol and Drug Abuse Patient Records regulations: The Federal rules restrict any use of the information to criminally investigate or prosecute any alcohol or drug abuse patient.[facility]burgIn the event this information is protected by the Federal Confidentiality of Alcohol and Drug Abuse Patient Records regulations: The Federal rules restrict any use of the information to criminally investigate or prosecute any alcohol or drug abuse patient.[facility]burgIn the event this information is protected by the Federal Confidentiality of Alcohol and Drug Abuse Patient Records regulations: The Federal rules restrict any use of the information to criminally investigate or prosecute any alcohol or drug abuse patient.[facility]burgIn the event this information is protected by the Federal Confidentiality of Alcohol and Drug Abuse Patient Records regulations: The Federal rules restrict any use of the information to criminally investigate or prosecute any alcohol or drug abuse patient.[facility]burgIn the event this information is protected by the Federal Confidentiality of Alcohol and Drug Abuse Patient Records regulations: The Federal rules restrict any use of the information to criminally investigate or prosecute any alcohol or drug abuse patient.[facility]burgIn the event this information is protected by the Federal Confidentiality of Alcohol and Drug Abuse Patient Records regulations: The Federal rules restrict any use of the information to criminally investigate or prosecute any alcohol or drug abuse patient.[facility]burgIn the event this information is protected by the Federal Confidentiality of Alcohol and Drug Abuse Patient Records regulations: The Federal rules restrict any use of the information to criminally investigate or prosecute any alcohol or drug abuse patient.[facility]burgIn the event this information is protected by the Federal Confidentiality of Alcohol and Drug Abuse Patient Records regulations: The Federal rules restrict any use of the information to criminally investigate or prosecute any alcohol or drug abuse patient.[facility]burgIn the event this information is protected by the Federal Confidentiality of Alcohol and Drug Abuse Patient Records regulations: The Federal rules restrict any use of the information to criminally investigate or prosecute any alcohol or drug abuse patient.[facility]burgIn the event this information is protected by the Federal Confidentiality of Alcohol and Drug Abuse Patient Records regulations: The Federal rules restrict any use of the information to criminally investigate or prosecute any alcohol or drug abuse patient.[facility]burgIn the event this information is protected by the Federal Confidentiality of Alcohol and Drug Abuse Patient Records regulations: The Federal rules restrict any use of the information to criminally investigate or prosecute any alcohol or drug abuse patient.[facility]burgIn the event this information is protected by the Federal Confidentiality of Alcohol and Drug Abuse Patient Records regulations: The Federal rules restrict any use of the information to criminally investigate or prosecute any alcohol or drug abuse patient.[facility]burgIn the event this information is protected by the Federal Confidentiality of Alcohol and Drug Abuse Patient Records regulations: The Federal rules restrict any use of the information to criminally investigate or prosecute any alcohol or drug abuse patient.[facility]burgIn the event this information is protected by the Federal Confidentiality of Alcohol and Drug Abuse Patient Records regulations: The Federal rules restrict any use of the information to criminally investigate or prosecute any alcohol or drug abuse patient.[facility]burgIn the event this information is protected by the Federal Confidentiality of Alcohol and Drug Abuse Patient Records regulations: The Federal rules restrict any use of the information to criminally investigate or prosecute any alcohol or drug abuse patient.[facility]burgIn the event this information is protected by the Federal Confidentiality of Alcohol and Drug Abuse Patient Records regulations: The Federal rules restrict any use of the information to criminally investigate or prosecute any alcohol or drug abuse patient.[facility]burgIn the event this information is protected by the Federal Confidentiality of Alcohol and Drug Abuse Patient Records regulations: The Federal rules restrict any use of the information to criminally investigate or prosecute any alcohol or drug abuse patient.[facility]burgIn the event this information is protected by the Federal Confidentiality of Alcohol and Drug Abuse Patient Records regulations: The Federal rules restrict any use of the information to criminally investigate or prosecute any alcohol or drug abuse patient.[facility]burgIn the event this information is protected by the Federal Confidentiality of Alcohol and Drug Abuse Patient Records regulations: The Federal rules restrict any use of the information to criminally investigate or prosecute any alcohol or drug abuse patient.[facility]burgIn the event this information is protected by the Federal Confidentiality of Alcohol and Drug Abuse Patient Records regulations: The Federal rules restrict any use of the information to criminally investigate or prosecute any alcohol or drug abuse patient.[facility]burgIn the event this information is protected by the Federal Confidentiality of Alcohol and Drug Abuse Patient Records regulations: The Federal rules restrict any use of the information to criminally investigate or prosecute any alcohol or drug abuse patient.[facility]burgIn the event this information is protected by the Federal Confidentiality of Alcohol and Drug Abuse Patient Records regulations: The Federal rules restrict any use of the information to criminally investigate or prosecute any alcohol or drug abuse patient.[facility]burgIn the event this information is protected by the Federal Confidentiality of Alcohol and Drug Abuse Patient Records regulations: The Federal rules restrict any use of the information to criminally investigate or prosecute any alcohol or drug abuse patient.[facility]burgIn the event this information is protected by the Federal Confidentiality of Alcohol and Drug Abuse Patient Records regulations: The Federal rules restrict any use of the information to criminally investigate or prosecute any alcohol or drug abuse patient.[facility]burgIn the event this information is protected by the Federal Confidentiality of Alcohol and Drug Abuse Patient Records regulations: The Federal rules restrict any use of the information to criminally investigate or prosecute any alcohol or drug abuse patient.[facility]burgIn the event this information is protected by the Federal Confidentiality of Alcohol and Drug Abuse Patient Records regulations: The Federal rules restrict any use of the information to criminally investigate or prosecute any alcohol or drug abuse patient.[facility]burgIn the event this information is protected by the Federal Confidentiality of Alcohol and Drug Abuse Patient Records regulations: The Federal rules restrict any use of the information to criminally investigate or prosecute any alcohol or drug abuse patient.[facility]burgIn the event this information is protected by the Federal Confidentiality of Alcohol and Drug Abuse Patient Records regulations: The Federal rules restrict any use of the information to criminally investigate or prosecute any alcohol or drug abuse patient.[facility]burgIn the event this information is protected by the Federal Confidentiality of Alcohol and Drug Abuse Patient Records regulations: The Federal rules restrict any use of the information to criminally investigate or prosecute any alcohol or drug abuse patient.[facility]burgIn the event this information is protected by the Federal Confidentiality of Alcohol and Drug Abuse Patient Records regulations: The Federal rules restrict any use of the information to criminally investigate or prosecute any alcohol or drug abuse patient.[facility]burgIn the event this information is protected by the Federal Confidentiality of Alcohol and Drug Abuse Patient Records regulations: The Federal rules restrict any use of the information to criminally investigate or prosecute any alcohol or drug abuse patient.[facility]burgIn the event this information is protected by the Federal Confidentiality of Alcohol and Drug Abuse Patient Records regulations: The Federal rules restrict any use of the information to criminally investigate or prosecute any alcohol or drug abuse patient.[facility]burgIn the event this information is protected by the Federal Confidentiality of Alcohol and Drug Abuse Patient Records regulations: The Federal rules restrict any use of the information to criminally investigate or prosecute any alcohol or drug abuse patient.[facility]burgIn the event this information is protected by the Federal Confidentiality of Alcohol and Drug Abuse Patient Records regulations: The Federal rules restrict any use of the information to criminally investigate or prosecute any alcohol or drug abuse patient.[facility]burgIn the event this information is protected by the Federal Confidentiality of Alcohol and Drug Abuse Patient Records regulations: The Federal rules restrict any use of the information to criminally investigate or prosecute any alcohol or drug abuse patient.[facility]burgIn the event this information is protected by the Federal Confidentiality of Alcohol and Drug Abuse Patient Records regulations: The Federal rules restrict any use of the information to criminally investigate or prosecute any alcohol or drug abuse patient.[facility]burgIn the event this information is protected by the Federal Confidentiality of Alcohol and Drug Abuse Patient Records regulations: The Federal rules restrict any use of the information to criminally investigate or prosecute any alcohol or drug abuse patient.[facility]burgIn the event this information is protected by the Federal Confidentiality of Alcohol and Drug Abuse Patient Records regulations: The Federal rules restrict any use of the information to criminally investigate or prosecute any alcohol or drug abuse patient.[facility]burgIn the event this information is protected by the Federal Confidentiality of Alcohol and Drug Abuse Patient Records regulations: The Federal rules restrict any use of the information to criminally investigate or prosecute any alcohol or drug abuse patient.[facility]burgIn the event this information is protected by the Federal Confidentiality of Alcohol and Drug Abuse Patient Records regulations: The Federal rules restrict any use of the information to criminally investigate or prosecute any alcohol or drug abuse patient.[facility]burgIn the event this information is protected by the Federal Confidentiality of Alcohol and Drug Abuse Patient Records regulations: The Federal rules restrict any use of the information to criminally investigate or prosecute any alcohol or drug abuse patient.[facility]burgIn the event this information is protected by the Federal Confidentiality of Alcohol and Drug Abuse Patient Records regulations: The Federal rules restrict any use of the information to criminally investigate or prosecute any alcohol or drug abuse patient.[facility]In the event this information is protected by the Federal Confidentiality of Alcohol and Drug Abuse Patient Records regulations: The Federal rules restrict any use of the information to criminally investigate or prosecute any alcohol or drug abuse patient.[facility]In the event this information is protected by the Federal Confidentiality of Alcohol and Drug Abuse Patient Records regulations: The Federal rules restrict any use of the information to criminally investigate or prosecute any alcohol or drug abuse patient.[facility]burgIn the event this information is protected by the Federal Confidentiality of Alcohol and Drug Abuse Patient Records regulations: The Federal rules restrict any use of the information to criminally investigate or prosecute any alcohol or drug abuse patient.[facility] Reason for Visit (unrecogniz ed section and [...] CT HEAD/BRAIN W/O CONTRAST MATERIAL Jenna Jim, DATAPOWER DEVELOPER.THERMITE BOMB LOADER [address] [place] [address] Ct Imaging Referral ID Status Reason Start Date Expiration Date V isits Requested Visits Authorized [id number] Closed Auto-Generat ed Referral Patient Cleared - [...] Is also having head pain Reason Comments [facility] Reason Comments Results Reason Comments Consult Colonoscopy, anemia, no prior colonoscopy Specialty Diagnoses / Procedures Referred By Contac t Referred To Contact General Surgery Diagnoses Anemia, unspecified type Procedures CONSULT TO GENERAL SURGERY OFFICE/OUTPATIENT [facility] 60-74 MINUTES Martha Boston PA-C [address] [place] [address] Referral ID Status Reason Start Date Expiration Date Visits Requested Visits Authorized [id number] Pending Review PCP Requested Referral 2 06/26/2023 [...] Orthostatic hypotension Procedures CONSULT TO NEUROLOGY OFFICE/OUTPATIENT [facility] 60-74 MINUTES Jenna Jim APRN.THERMITE BOMB LOADER [address] [place] [address] Referral ID Status Reason Start Date Expiration Date Visits Requested Visits Authorized [id number] Pending Review PCP Requested Referral 02/22/2022 02/22/2023 [...] ABD & PELVIS W/CONTRAST Martha Boston PA-C [address] [place] [address] [place] [id number] Referral ID Status Reason Start Date Expiration Date V isits Requested Visits Authorized [id number] Closed Auto-Generate d Referral 07/09/2022 08/08/2022 2 2 Reason Comments Radiology US Specialty Diagnoses / Procedures Referred By Contac t Referred To Contact US IMAGING Diagnoses Abnormal weight loss Procedures US ABD RT UPPER QUADRANT US ABDOMINAL REAL TIME W/IMAGE LIMITED Martha Boston PA-C [address] [place] [address] [place] [id number] Referral ID Status Reason Start Date Expiration Date V isits Requested Visits Authorized [id number] Closed Auto-Generate d Referral 06/25/2022 07/25/2023 1 1 Reason Comments ER Discharge Summary X-ray, H&P Reason Comments Outside Cardiology Cardiac Cath, Echo Reason Comments ER Discharge Summary X-ray Reason Comments Acute Visit Swelling in upper, l ower lips & tongue post OTC KANK-A use Reason Comments Outside Imaging Reason Comments [facility] ER report 10/23/23 Reason Comments External / [facility] EKG Reason Comments Wrist/forearm Injury left x 3 days, hit with 2x4 board on arm, bruising Reason Comments Ext / [facility] Reason Onset Date Comments Refill [...] Reason Comments ED Follow-up Reason Comments Outside [id number] Ordered Reason Comments Head Pain X 1 week Specialty Diagnoses / Procedures Referred By Carlos neff Referred To Contact MR IMAGING Diagnoses Thunderclap headache New onset headache Procedures MRI BRAIN WO/W IVCON MRI BRAIN BRAIN STEM W/O W/CONTRAST MATERIAL Martha Boston PA-C [address] [place] [address] [place] [id number] Referral ID Status Reason Start Date Expiration Date V isits Requested Visits Authorized [id number] Closed Auto-Generat ed Referral Patient Cleared - Admin/Chairm an/Director advise to proceed or did not respond 10/07/2024 08/31/2025 1 1 Reason Comments New Patient Evaluation Specialty Diagnoses / Procedures Referred By Carlos neff Referred To Contact Diagnoses Hypersomnolence Snores Sleep initiation dysfunction Procedures CONSULT TO SLEEP MEDICINE - ADULT OFFICE/OUTPATIENT [facility] 60 MINUTES Nadir Grady MD [address] [place] [address] Phone: tel: fax: Referral ID Status Reason Start Date Expiration Date V isits Requested Visits Authorized [id number] Closed PCP Requested Referral 09/06/2024 09/06/2025 1 1 Reason Comments Outside MRI Reason Onset Date Comments Care Coordination 12/15/2024 Panel Manageme nt Review for Pharmacist Referral for Diabetes Management Reason Onset Date Comments Refill Request 01/27/2025 Reason Onset Date Comments Refill Request 02/23/2025 Reason Comments Abstract [facility] ED visit, withou t admission Care Teams (unrecognized sec tion and content) Core Cutter And Reamer Relationship Specialty Start Date End Date Nadir Grady MD [address] [place], [place] [id number] PCP - General Family Practice 08/04/15 Arnaud Harrell RPh [address] [place], [place] [id number] Pharmacist Pharmacy 10/20/20 FelizKaren, [facility] [address] [facility] [place] [address] Pharmacist Pharmacy 03/15/21 Core Cutter And Reamer Relationship Specialty Start Date End Date Nadir Grady MD [address] [facility] [place] [address] PCP - General Family Practice 08/04/15 Toddsilvia Arnaud, [facility] [address] [facility] [place] [address] Pharmacist Pharmacy 10/20/20 LavelleVirginie florily, [facility] [address] [facility] [place] [address] Pharmacist Pharmacy 03/15/21 Core Cutter And Reamer Relationship Specialty Start Date End Date Nadir Grady MD [address] [facility] [place] [address] PCP - General Family Practice 08/04/15 Toddsilvia Arnaud, [facility] [address] [facility] [place] [address] Pharmacist Pharmacy 10/20/20 Lavelle, Karen, [facility] [address] [facility] [place] [address] Pharmacist Pharmacy 03/15/21 Core Cutter And Reamer Relationship Specialty Start Date End Date Nadir Grady MD [address] [facility] [place] [address] PCP - General Family Practice 08/04/15 Sharri Briankati, [facility] [address] [facility] [place] [address] Pharmacist Pharmacy 10/20/20 Lavelle, Karen, [facility] [address] [facility] [place] [address] Pharmacist Pharmacy 03/15/21 Core Cutter And Reamer Relationship Specialty Start Date End Date Nadir Grady MD [address] [facility] [place] [address] PCP - General Family Practice 08/04/15 [facility] [address] [facility] [place] [address] Pharmacist Pharmacy 10/20/20 [facility] [address] [facility] [place] [address] Pharmacist Pharmacy 03/15/21 Core Cutter And Reamer Relationship Specialty Start Date End Date Nadir Grady MD [address] [facility] [place] [address] PCP - General Family Practice 08/04/15 [facility] [address] [facility] [place] [address] Pharmacist Pharmacy 10/20/20 Karen Piper, [facility] [address] [facility] [place] [address] Pharmacist Pharmacy 03/15/21 Yolanda Dean (Pa) [address] [place] [address] Referring Pulmonary and Critical Care Medicine 02/07/22 Core Cutter And Reamer Relationship Specialty Start Date End Date Nadir Grady MD [address] [facility] [place] [address] PCP - General Family Practice 08/04/15 [facility] [address] [facility] [place] [address] Pharmacist Pharmacy 10/20/20 [facility] [address] [facility] [place] [address] Pharmacist Pharmacy 03/15/21 Yolanda Dean (Pa) [address] [place] [address] Referring Pulmonary and Critical Care Medicine 02/07/22 Core Cutter And Reamer Relationship Specialty Start Date End Date Nadir Grady MD [address] [facility] [place] [address] PCP - General Family Practice 08/04/15 [facility] [address] [facility] [place] [address] Pharmacist Pharmacy 10/20/20 Lavelle [facility] [address] [facility] [place] [address] Pharmacist Pharmacy 03/15/21 Yolanda Dean (Pa) [address] [facility] [place] [address] Referring Pulmonary and Critical Care Medicine 02/07/22 Core Cutter And Reamer Relationship Specialty Start Date End Date Nadir Grady MD [address] [facility] [place] [address] PCP - General Family Practice 08/04/15 [facility] [address] [facility] [place] [address] Pharmacist Pharmacy 10/20/20 Lavelle, [facility] [address] [facility] [place] [address] Pharmacist Pharmacy 03/15/21 Yolanda Dean (Pa) [address] [facility] [place] [address] Referring Pulmonary and Critical Care Medicine 02/07/22 Core Cutter And Reamer Relationship Specialty Start Date End Date Nadir Grady MD [address] [facility] [place] [address] PCP - General Family Practice 08/04/15 [facility] [address] [facility] [facility] [place] [place] [address] Pharmacist Pharmacy 10/20/20 LavelleKaren florCrittenton Behavioral [facility] [address] [facility] [place] [address] Pharmacist Pharmacy 03/15/21 Yolanda Dean (Pa) [address] [place] [address] Referring Pulmonary and Critical Care Medicine 02/07/22 Core Cutter And Reamer Relationship Specialty Start Date End Date Nadir Grady MD [address] [facility] [place] [address] PCP - General Family Practice 08/04/15 Arnaud HarrellCrittenton Behavioral Health [address] [facility] [place] [address] Pharmacist Pharmacy 10/20/20 Karen PiperCrittenton Behavioral Health [address] [facility] [place] [address] Pharmacist Pharmacy 03/15/21 Yolanda Dena (Pa) [address] [place] [address] Referring Pulmonary and Critical Care Medicine 02/07/22 Core Cutter And Reamer Relationship Specialty Start Date End Date Nadir Gardy MD [address] [facility] [place] [address] PCP - General Family Practice 08/04/15 [facility] vegaCr[facility] [address] [facility] [place] [address] Pharmacist Pharmacy 10/20/20 Karen PiperCrittenton Behavioral Health [address] [facility] [place] [address] Pharmacist Pharmacy 03/15/21 Yolanda Dean (Pa) [address] Located Within [facility] [place] [address] Referring Pulmonary and Critical Care Medicine 02/07/22 Core Cutter And Reamer Relationship Specialty Start Date End Date Nadir Grady MD [address] [facility] [place] [address] PCP - General Family Practice 08/04/15 Arnaud HarrellCrittenton Behavioral Health [address] [facility] [place] [address] Pharmacist Pharmacy 10/20/20 Lavelle KarenCrittenton Behavioral [facility] [address] [facility] [place] [address] Pharmacist Pharmacy 03/15/21 Yolanda Dean (Pa) [address] Located Within [facility] [place] [address] Referring Pulmonary and Critical Care Medicine 02/07/22 Core Cutter And Reamer Relationship Specialty Start Date End Date Nadir Grady MD [address] [facility] [place] [address] PCP - General Family Practice 08/04/15 Sharri BriankatiCrittenton Behavioral Health [address] [facility] [place] [address] Pharmacist Pharmacy 10/20/20 FelizKaren florCrittenton Behavioral [facility] [address] [facility] [place] [address] Pharmacist Pharmacy 03/15/21 Yolanda Dean (Pa) [address] Sam[address] [facility] [place] [address] Referring Pulmonary and Critical Care Medicine 02/07/22 Core Cutter And Reamer Relationship Specialty Start Date End Date Nadir Grady MD [address] [facility] [place] [address] PCP - General Family Practice 08/04/15 Arnaud HarrellCrittenton Behavioral Health [address] [facility] [place] [address] Pharmacist Pharmacy 10/20/20 FelizKaren florCrittenton [facility] [address] [facility] [place] [address] Pharmacist Pharmacy 03/15/21 Yolanda Dean (Pa) [address] [place] [place] [address] Referring Pulmonary and Critical Care Medicine 02/07/22 Core Cutter And Reamer Relationship Specialty Start Date End Date Nadir Grady MD [address] [facility] [place] [address] PCP - General Family Practice 08/04/15 Arnaud HarrellCrittenton Behavioral [facility] [address] [facility] [place] [address] Pharmacist Pharmacy 10/20/20 Karen PiperCr[facility] Behavioral [facility] [address] [facility] [place] [address] Pharmacist Pharmacy 03/15/21 Yolanda Dean (Pa) [address] [place] [address] Referring Pulmonary and Critical Care Medicine 02/07/22 Core Cutter And Reamer Relationship Specialty Start Date End Date Nadir Grady MD [address] [facility] [place] [address] PCP - General Family Practice 08/04/15 Toddsilvia Arnaud, [facility] [address] [facility] [place] [address] Pharmacist Pharmacy 10/20/20 Karen Piper, [facility] [address] [facility] [place] [address] Pharmacist Pharmacy 03/15/21 Yolanda Dean (Pa) [address] [place] [address] Referring Pulmonary and Critical Care Medicine 02/07/22 Core Cutter And Reamer Relationship Specialty Start Date End Date Nadir Grady MD [address] [facility] [place] [address] PCP - General Family Practice 08/04/15 ToddArnaud vegaCrittenton Behavioral Health [address] [facility] [place] [address] Pharmacist Pharmacy 10/20/20 Karen Piper, [facility] [address] [facility] [place] [address] Pharmacist Pharmacy 03/15/21 Yolanda Dean (Pa) [address] [place] [address] Referring Pulmonary and Critical Care Medicine 02/07/22 Core Cutter And Reamer Relationship Specialty Start Date End Date Nadir Grady MD [address] [facility] [place] [address] PCP - General Family Practice 08/04/15 ToddArnaud vega, [facility] [address] [facility] [place] [address] Pharmacist Pharmacy 10/20/20 Feliz, Karen, [facility] [address] [facility] [place] [address] Pharmacist Pharmacy 03/15/21 Yolanda Dean (Pa) [address] [place] [address] Referring Pulmonary and Critical Care Medicine 02/07/22 Core Cutter And Reamer Relationship Specialty Start Date End Date Nadir Grady MD [address] [facility] [place] [address] PCP - General Family Practice 08/04/15 Arnaud Harrell, [facility] [address] [facility] [place] [address] Pharmacist Pharmacy 10/20/20 Karen PiperCr[facility]enton Behavior[facility] [address] [facility] [place] [address] Pharmacist Pharmacy 03/15/21 Yolanda Dean (Pa) [address] [place] [address] Referring Pulmonary and Critical Care Medicine 02/07/22 Core Cutter And Reamer Relationship Specialty Start Date End Date Nadir Grady MD [address] [facility] [place] [address] PCP - General Family Medicine 08/04/15 Arnaud Harrell, [facility] [address] [facility] [place] [address] Pharmacist Pharmacy 10/20/20 Karen PiperCr[facility] [address] [facility] [place] [address] Pharmacist Pharmacy 03/15/21 Yolanda Dean (Pa) [address] [place] [address] Referring Pulmonary and Critical Care Medicine 02/07/22 Core Cutter And Reamer Relationship Specialty Start Date End Date Nadir Grady MD [address] [facility] [place] [address] PCP - General Family Medicine 08/04/15 [facility]Ar[facility] vegaCr[facility] [address] [facility] [place] [address] Pharmacist Pharmacy 10/20/20 Karen PiperCr[facility] [address] [facility] [place] [address] Pharmacist Pharmacy 03/15/21 Yolanda Dean (Pa) [address] [place] [place] [address] Referring Pulmonary and Critical Care Medicine 02/07/22 Core Cutter And Reamer Relationship Specialty Start Date End Date Nadir Grady MD [address] [facility] [place] [address] PCP - General Family Medicine 08/04/15 [facility] CenterArnaud vegaCr[facility] [address] [facility] [place] [address] Pharmacist Pharmacy 10/20/20 Karen PiperCr[facility] [address] [facility] [place] [address] Pharmacist Pharmacy 03/15/21 Yolanda Dean (Pa) [address] [place] [address] Referring Pulmonary and Critical Care Medicine 02/07/22 Core Cutter And Reamer Relationship Specialty Start Date End Date Nadir Grady MD [address] [facility] [place] [address] PCP - General Family Medicine 08/04/15 ToddArnaud vegaCrittenton Behavioral Health [address] [facility] [place] [address] Pharmacist Pharmacy 10/20/20 Karen PiperCr[facility] [address] [facility] [place] [address] Pharmacist Pharmacy 03/15/21 Yolanda Dean (Pa) [address] Located Within [facility] [place] [address] Referring Pulmonary and Critical Care Medicine 02/07/22 Core Cutter And Reamer Relationship Specialty Start Date End Date Nadir Grady MD [address] [facility] [place] [address] PCP - General Family Medicine 08/04/15 Arnaud HarrellCrittenton [facility] [address] [facility] [place] [address] Pharmacist Pharmacy 10/20/20 Karen PiperCr[facility] [address] [facility] [place] [address] Pharmacist Pharmacy 03/15/21 Yolanda Dean (Pa) [address] Located Within [facility] [place] [address] Referring Pulmonary and Critical Care Medicine 02/07/22 Core Cutter And Reamer Relationship Specialty Start Date End Date Nadir Grady MD [address] [facility] [place] [address] PCP - General Family Medicine 08/04/15 Arnaud Harrell, [facility] [address] [facility] [place] [address] Pharmacist Pharmacy 10/20/20 LavelleKaren florCrittenton Behavior[facility] [address] [facility] [place] [address] Pharmacist Pharmacy 03/15/21 Yolanda Dean (Pa) [address] [place] [address] Referring Pulmonary and Critical Care Medicine 02/07/22 Core Cutter And Reamer Relationship Specialty Start Date End Date Nadir Grady MD [address] [facility] [place] [address] PCP - General Family Medicine 08/04/15 [facility] CenterAr[facility]ud vegaCr[facility] [address] [facility] [place] [address] Pharmacist Pharmacy 10/20/20 LavelleKarenCritt[facility] [address] [facility] [place] [address] Pharmacist Pharmacy 03/15/21 Yolanda Dean (Pa) [address] [place] [facility] [address] Referring Pulmonary and Critical Care Medicine 02/07/22 Core Cutter And Reamer Relationship Specialty Start Date End Date Nadir Grady MD [address] [facility] [place] [address] PCP - General Family Medicine 08/04/15 Arnaud HarrellCrittenton [facility] [address] [facility] [place] [address] Pharmacist Pharmacy 10/20/20 Lavelle KarenCr[facility] [address] [facility] [place] [address] Pharmacist Pharmacy 03/15/21 Yolanda Dean (Pa) [address] [place] [address] Referring Pulmonary and Critical Care Medicine 02/07/22 Core Cutter And Reamer Relationship Specialty Start Date End Date Nadir Grady MD [address] [facility] [place] [address] PCP - General Family Medicine 08/04/15 ToddArnaud vegaCrittenton Behavioral [facility] [address] [facility] [place] [address] Pharmacist Pharmacy 10/20/20 Karen PiperCr[facility] [address] [facility] [place] [address] Pharmacist Pharmacy 03/15/21 Yolanda Dean (Pa) [address] [place] [address] Referring Pulmonary and Critical Care Medicine 02/07/22 Core Cutter And Reamer Relationship Specialty Start Date End Date Nadir Grady MD [address] [facility] [place] [address] PCP - General Family Medicine 08/04/15 ToddArnaud vegaCrittenton Behavioral [facility] [address] [facility] [place] [address] Pharmacist Pharmacy 10/20/20 Karen PiperCr[facility] [address] [facility] [place] [address] Pharmacist Pharmacy 03/15/21 Yolanda Dean (Pa) [address] [place] [address] Referring Pulmonary and Critical Care Medicine 02/07/22 Core Cutter And Reamer Relationship Specialty Start Date End Date Nadir Grady MD [address] [facility] [place] [address] PCP - General Family Medicine 08/04/15 Arnaud Harrell, [facility] [address] [facility] [place] [address] Pharmacist Pharmacy 10/20/20 Karen PiperCr[facility] [address] [facility] [place] [address] Pharmacist Pharmacy 03/15/21 Yolanda Dean (Pa) [address] Located Within [facility] [place] [address] Referring Pulmonary and Critical Care Medicine 02/07/22 Core Cutter And Reamer Relationship Specialty Start Date End Date Nadir Grady MD [address] [facility] [place] [address] PCP - General Family Medicine 08/04/15 Arnaud HarrellCrittenton [facility] [address] [facility] [place] [address] Pharmacist Pharmacy 10/20/20 Karen PiperCr[facility] [address] [facility] [place] [address] Pharmacist Pharmacy 03/15/21 Yolanda Dean (Pa) [address] [place] [address] Referring Pulmonary and Critical Care Medicine 02/07/22 Core Cutter And Reamer Relationship Specialty Start Date End Date Nadir Grady MD [address] [facility] [place] [address] PCP - General Family Medicine 08/04/15 Arnaud HarrellCrittenton [facility] [address] [facility] [place] [address] Pharmacist Pharmacy 10/20/20 Karen PiperCr[facility] [address] [facility] [place] [address] Pharmacist Pharmacy 03/15/21 Yolanda Dean (Pa) [address] [place] [address] Referring Pulmonary and Critical Care Medicine 02/07/22 Core Cutter And Reamer Relationship Specialty Start Date End Date Nadir Grady MD [address] [facility] [place] [address] PCP - General Family Medicine 08/04/15 ToddArnaud vegaCrittenton Behavioral [facility] [address] [facility] [place] [address] Pharmacist Pharmacy 10/20/20 FelizKarenCrittenton Behavior[facility] [address] [facility] [place] [address] Pharmacist Pharmacy 03/15/21 Yolanda Dean (Pa) [address] [place] [address] Referring Pulmonary and Critical Care Medicine 02/07/22 Core Cutter And Reamer Relationship Specialty Start Date End Date Nadir Grady MD [address] [facility] [place] [address] PCP - General Family Medicine 08/04/15 ToddArnaud vegaCrittenton [facility] [address] [facility] [place] [address] Pharmacist Pharmacy 10/20/20 Karen PiperCr[facility] [address] [facility] [place] [address] Pharmacist Pharmacy 03/15/21 Yolanda Dean (Pa) [address] [place] [address] Referring Pulmonary and Critical Care Medicine 02/07/22 Core Cutter And Reamer Relationship Specialty Start Date End Date Nadir Grady MD [address] [facility] [place] [address] PCP - General Family Medicine 08/04/15 Arnaud HarrellCr[facility] [address] [facility] [place] [address] Pharmacist Pharmacy 10/20/20 LavelleKarenCr[facility] [address] [facility] [place] [address] Pharmacist Pharmacy 03/15/21 Yolanda Dean (Pa) [address] [facility] [place] [address] Referring Pulmonary and Critical Care Medicine 02/07/22 Core Cutter And Reamer Relationship Specialty Start Date End Date Nadir Grady MD [address] [facility] [place] [address] PCP - General Family Medicine 08/04/15 Arnaud HarrellCr[facility] [address] [facility] [place] [address] Pharmacist Pharmacy 10/20/20 LavelleKarenCr[facility] [address] [facility] [place] [address] Pharmacist Pharmacy 03/15/21 Yolanda Dean (Pa) [address] [facility] [address] Referring Pulmonary and Critical Care Medicine 02/07/22 Core Cutter And Reamer Relationship Specialty Start Date End Date Nadir Grady MD [address] [facility] [place] [address] PCP - General Family Medicine 08/04/15 Arnaud HarrellCr[facility] [address] [facility] [place] [address] Pharmacist Pharmacy 10/20/20 LavelleVirginieKarenLittle [facility] [address] [facility] [place] [address] Pharmacist Pharmacy 03/15/21 Yolanda Dean (Pa) [address] [place] [facility] [place] [address] Referring Pulmonary and Critical Care Medicine 02/07/22 Core Cutter And Reamer Relationship Specialty Start Date End Date Nadir Grady MD [address] [facility] [place] [address] PCP - General Family Medicine 08/04/15 [facility] CenterArnaud vegaCr[facility] [address] [facility] [place] [address] Pharmacist Pharmacy 10/20/20 Lavelle KarenCr[facility] [address] [facility] [place] [address] Pharmacist Pharmacy 03/15/21 Yolanda Dean (Pa) [address] [facility] [place] [address] Referring Pulmonary and Critical Care Medicine 02/07/22 Core Cutter And Reamer Relationship Specialty Start Date End Date Nadir Grady MD [address] [facility] [place] [address] PCP - General Family Medicine 08/04/15 Arnaud HarrellCrittenton [facility] [address] [facility] [place] [address] Pharmacist Pharmacy 10/20/20 Feliz KarenCr[facility] [address] [facility] [place] [address] Pharmacist Pharmacy 03/15/21 Yolanda Dean (Pa) [address] [facility] [place] [address] Referring Pulmonary and Critical Care Medicine 02/07/22 Core Cutter And Reamer Relationship Specialty Start Date End Date Nadir Grady MD [address] [facility] [place] [address] PCP - General Family Medicine 08/04/15 ToddrAnaud vegaCrittenton Behavioral [facility] [address] [facility] [place] [address] Pharmacist Pharmacy 10/20/20 Karen PiperCr[facility] [address] [facility] [place] [address] Pharmacist Pharmacy 03/15/21 Yolanda Dean (Pa) [address] [facility] [place] [address] Referring Pulmonary and Critical Care Medicine 02/07/22 Core Cutter And Reamer Relationship Specialty Start Date End Date Nadir Grady MD [address] [facility] [place] [address] PCP - General Family Medicine 08/04/15 ToddArnaud vegaCritt[facility] [address] [facility] [place] [address] Pharmacist Pharmacy 10/20/20 Karen PiperCr[facility] [address] [facility] [place] [address] Pharmacist Pharmacy 03/15/21 Yolanda Dean (Pa) [address] [facility] [place] [address] Referring Pulmonary and Critical Care Medicine 02/07/22 Core Cutter And Reamer Relationship Specialty Start Date End Date Nadir Grady MD [address] [facility] [place] [address] PCP - General Family Medicine 08/04/15 Arnaud Harrell, [facility] [address] [facility] [place] [address] Pharmacist Pharmacy 10/20/20 Feliz, KarenCrittenton [facility] [address] [facility] [place] [address] Pharmacist Pharmacy 03/15/21 Yolanda Dean (Pa) [address] [facility] [place] [address] Referring Pulmonary and Critical Care Medicine 02/07/22 Core Cutter And Reamer Relationship Specialty Start Date End Date Nadir Grady MD [address] [facility] [place] [address] PCP - General Family Medicine 08/04/15 [facility] Centersilvia BriankatiCritt[facility] [address] [place] [address] Pharmacist Pharmacy 10/20/20 Karen PiperCr[facility] [address] [facility] [place] [address] Pharmacist Pharmacy 03/15/21 Yolanda Dean (Pa) [address] [facility] [place] [address] Referring Pulmonary and Critical Care Medicine 02/07/22 Core Cutter And Reamer Relationship Specialty Start Date End Date Nadir Grady MD [address] [facility] [place] [address] PCP - General Family Medicine 08/04/15 Arnaud HarrellCr[facility] [address] [place] [address] Pharmacist Pharmacy 10/20/20 Karen PiperCr[facility] [address] [facility] [place] [address] Pharmacist Pharmacy 03/15/21 Yolanda Dean (Pa) [address] [facility] [place] [address] Referring Pulmonary and Critical Care Medicine 02/07/22 Core Cutter And Reamer Relationship Specialty Start Date End Date Nadir Grady MD [address] [place] [address] PCP - General Family Medicine 08/04/15 Arnaud HarrellCr[facility] [address] [place] [address] Pharmacist Pharmacy 10/20/20 FelizKaren florCrittenton [facility] [address] [place] [address] Pharmacist Pharmacy 03/15/21 Yolanda Dean (Pa) [address] [place] [address] Referring Pulmonary and Critical Care Medicine 02/07/22 Core Cutter And Reamer Relationship Specialty Start Date End Date Nadir Grady MD [address] [place] [address] PCP - General Family Medicine 08/04/15 ToddArnaud vegaCrittenton [facility]al [facility] [address] [place] [address] Pharmacist Pharmacy 10/20/20 Feliz KarenCritt[facility] [address] [place] [address] Pharmacist Pharmacy 03/15/21 Yolanda Dean (Pa) [address] [place] [address] Referring Pulmonary and Critical Care Medicine 02/07/22 Core Cutter And Reamer Relationship Specialty Start Date End Date Nadir Grady MD [address] [place] [address] PCP - General Family Medicine 08/04/15 Arnaud HarrellCr[facility] [address] [facility] [place] [address] Pharmacist Pharmacy 10/20/20 Karen [facility]Cr[facility] [address] [facility] [place] [address] Pharmacist Pharmacy 03/15/21 Yolanda Dean (Pa) [address] [facility] [place] [address] Referring Pulmonary and Critical Care Medicine 02/07/22 [...] MD Primary Care Provider Active Cheli Diaz METAL FLOORING INSTALLER, METAL FLOORING INSTALLER-C Attending Provider Active Team Status: Inactive Member Role Status Dates Dr. Nadir Grady MD Primary Care Provider Active Dr. Jd Kern MD Attending Provider, Referring Pro vider Active Core Cutter And Reamer Relationship Specialty Start Date End Date Nadir Grady MD [address] [facility] [place] [address] PCP - General Family Medicine 08/04/15 ToddArnaud vega, [facility] [address] [facility] [place] [address] Pharmacist Pharmacy 10/20/20 Karne [facility]Cr[facility] [address] [facility] [place] [address] Pharmacist Pharmacy 03/15/21 Yolanda Dean PA [address] [facility] [place] [address] Referring Pulmonary and Critical Care Medicine 02/07/22 Core Cutter And Reamer Relationship Specialty Start Date End Date Nadir Grady MD [address] [place] [address] PCP - General Family Medicine 08/04/15 [facility] CenterAr[facility] vegaCr[facility] [address] [place] [address] Pharmacist Pharmacy 10/20/20 LavelleKarenCritt[facility] [address] [place] [address] Pharmacist Pharmacy 03/15/21 Yolanda Dean PA [address] [facility] [place] [id number] Referring Pulmonary and Critical Care Medicine 02/07/22 Core Cutter And Reamer Relationship Specialty Start Date End Date Nadir Grady MD [address] [place] [address] PCP - General Family Medicine 08/04/15 [facility] [address] [place] [address] Pharmacist Pharmacy 10/20/20 Karen [facility] [address] [place] [address] Pharmacist Pharmacy 03/15/21 Yolanda Dean PA [address] [facility] [place] [address] Referring Pulmonary and Critical Care Medicine 02/07/22 Core Cutter And Reamer Relationship Specialty Start Date End Date Nadir Grady MD [address] [facility] [place] [address] PCP - General Family Medicine 08/04/15 TdodArnaud vegaCr[facility] [address] [facility] [place] [address] Pharmacist Pharmacy 10/20/20 Lavelle, [facility] [address] [facility] [place] [address] Pharmacist Pharmacy 03/15/21 Yolanda Dean PA [address] [facility] [place] [address] Referring Pulmonary and Critical Care Medicine 02/07/22 Core Cutter And Reamer Relationship Specialty Start Date End Date Nadir Grady MD [address] [facility] [place] [address] PCP - General Family Medicine 08/04/15 ToddArnaud [facility]Cr[facility] [address] [facility] [place] [address] Pharmacist Pharmacy 10/20/20 Feliz [facility]Cr[facility] [address] [facility] [place] [address] Pharmacist Pharmacy 03/15/21 Yolanda Dean PA [address] [facility] [place] [address] Referring Pulmonary and Critical Care Medicine 02/07/22 Core Cutter And Reamer Relationship Specialty Start Date End Date Nadir Grady MD [address] [facility] [place] [address] PCP - General Family Medicine 08/04/15 ToddArnaud vega, [facility] [address] [facility] [place] [address] Pharmacist Pharmacy 10/20/20 Karen Piper h [address] [facility] [place] [address] Pharmacist Pharmacy 03/15/21 Yolanda Dean PA [address] [place] [address] Referring Pulmonary and Critical Care Medicine 02/07/22 Core Cutter And Reamer Relationship Specialty Start Date End Date Nadir Grady MD [address] [facility] [place] [address] PCP - General Family Medicine 08/04/15 [facility]ud [facility] [address] [place] [address] Pharmacist Pharmacy 10/20/20 LavelleKaren florCrittenton [facility] [address] [facility] [place] [address] Pharmacist Pharmacy 03/15/21 Yolanda Dean PA [address] [facility] [place] [address] Referring Pulmonary and Critical Care Medicine 02/07/22 Core Cutter And Reamer Relationship Specialty Start Date End Date Nadir Grady MD [address] [facility] [place] [address] PCP - General Family Medicine 08/04/15 [facility] [address] [facility] [place] [address] Pharmacist Pharmacy 03/15/21 Yolanda Dean PA [address] [facility] [place] [address] Referring Pulmonary and Critical Care Medicine 02/07/22 [...] Dr. Foster Mayberry DO Attending Provider Active Core Cutter And Reamer Relationship Specialty Start Date End Date Nadir Grady MD [address] [place], [place] [address] PCP - General Family Medicine 08/04/15 Karen Piper [facility] [address] [place], [place] [address] Pharmacist Pharmacy 03/15/21 Yolanda Dean PA [address] [place] [address] Referring Pulmonary and Critical Care Medicine 02/07/22 Team Status: Active Member Role Status Dates Dr. Nadir Grady MD Primary Care Provider Active Dr. Ez Hurst MD Attending Provider Active Team Status: Inactive Member Role Status Dates Dr. Nadir Grady MD Primary Care Provider Active Dr. Ivy Toribio MD Emergency Provider Active Core Cutter And Reamer Relationship Specialty Start Date End Date Nadir Grady MD [address] [facility] [place] [address] PCP - General Family Medicine 08/04/15 Lavelle Karen, [facility] [address] [facility] [place] [address] Pharmacist Pharmacy 03/15/21 Yolanda Dean PA [address] [facility] [place] [address] Referring Pulmonary and Critical Care Medicine 02/07/22 [...] Dr. Jered Huff DO Emergency Provider Active Core Cutter And Reamer Relationship Specialty Start Date End Date Nadir Grady MD [address] [facility] [place] [address] PCP - General Family Medicine 08/04/15 Lavelle Karen, [facility] [address] [facility] [place] [address] Pharmacist Pharmacy 03/15/21 Yolanda Dean PA [address] [facility] [place] [address] Referring Pulmonary and Critical Care Medicine 02/07/22 Core Cutter And Reamer Relationship Specialty Start Date End Date Nadir Grady MD [address] [facility] [place] [address] PCP - General Family Medicine 08/04/15 Karen Piper [facility] [address] [facility] [place], [place] [address] Pharmacist Pharmacy 03/15/21 Yolanda Dean PA [address] [facility] [place] [address] Referring Pulmonary and Critical Care Medicine 02/07/22 [...] Jered Huff DO Attending Provider, Emergency P rovilucinao Active Team Status: Inactive Member Role Status [...] MD Primary Care Provider Active Dr. Jered Schwiger , DO Emergency Provider Active Dr. Gildardo Walton MD Admit Provider, Other Provider Active Dr. Martina Cr MD Attending Provider Active Core Cutter And Reamer Relationship Specialty Start Date End Date Nadir Grady MD [address] [facility] [place] [address] PCP - General Family Medicine 08/04/15 Lavelle [facility] [address] [facility] [place] [address] Pharmacist Pharmacy 03/15/21 Yolanda Dean PA [address] [facility] [place] [address] Referring Pulmonary and Critical Care Medicine 02/07/22 Core Cutter And Reamer Relationship Specialty Start Date End Date Nadir Grady MD [address] [facility] [place] [address] PCP - [facility] Medicine 08/04/15 [facility] [address] [facility] [place] [address] Pharmacist Pharmacy 03/15/21 Yolanda Dean PA [address] [facility] [place] [address] Referring Pulmonary and Critical Care Medicine 02/07/22 [...] Dr. Gildardo Walton MD Referring Provider Active Core Cutter And Reamer Relationship Specialty Start Date End Date Nadir Grady MD [address] [place] [address] PCP - General Family Medicine 08/04/15 [facility] [address] [place] [address] Pharmacist Pharmacy 10/20/20 09/30/23 [facility] [address] [facility] [place] [address] Pharmacist Pharmacy 03/15/21 Yolanda Vargas PA-C [address] [facility] [place] [address] Referring Pulmonary and Critical Care Medicine 02/07/22 Core Cutter And Reamer Relationship Specialty Start Date End Date Nadir Grady MD [address] [facility] [place] [address] PCP - General Family Medicine 08/04/15 [facility] [address] [facility] [place] [address] Pharmacist Pharmacy 03/15/21 Yolanda Vargas PA-C [address] [facility] [place] [address] Referring Pulmonary and Critical Care Medicine 02/07/22 Core Cutter And Reamer Relationship Specialty Start Date End Date Nadir Grady MD [address] [facility] [place] [address] PCP - General Family Medicine 08/04/15 [facility]iz [facility] [address] [place] [address] Pharmacist Pharmacy 03/15/21 Yolanda Vargas PA-C [address] [place] [address] Referring Pulmonary and Critical Care Medicine 02/07/22 Core Cutter And Reamer Relationship Specialty Start Date End Date Nadir Grady MD [address] [facility] [place] [address] PCP - General Family Medicine 08/04/15 Lavelle [facility] [address] [place] [address] Pharmacist Pharmacy 03/15/21 Yolanda Vargas PA-C [address] [place] [address] Referring Pulmonary and Critical Care Medicine 02/07/22 Core Cutter And Reamer Relationship Specialty Start Date End Date Nadir Grady MD [address] [facility] [place] [address] PCP - General Family Medicine 08/04/15 FelizKaren [facility]Cr[facility] [address] [place] [address] Pharmacist Pharmacy 03/15/21 Yolanda Vargas PA-C [address] [facility] [place] [address] Referring Pulmonary and Critical Care Medicine 02/07/22 Core Cutter And Reamer Relationship Specialty Start Date End Date Nadir Grady MD [address] [facility] [place] [address] PCP - General Family Medicine 08/04/15 LavelleVirginieKarenLittle [facility] [address] [facility] [place] [address] Pharmacist Pharmacy 03/15/21 Yolanda Vargas PA-C [address] [facility] [place] [address] Referring Pulmonary and Critical Care Medicine 02/07/22 Core Cutter And Reamer Relationship Specialty Start Date End Date Nadir Grady MD [address] [place] [address] PCP - General Family Medicine 08/04/15 [facility] [address] [place] [address] Pharmacist Pharmacy 10/20/20 09/30/23 Feliz [facility]Cr[facility] [address] [place] [address] Pharmacist Pharmacy 03/15/21 Yolanda Vargas PA-C [address] [facility] [place] [address] Referring Pulmonary and Critical Care Medicine 02/07/22 Core Cutter And Reamer Relationship Specialty Start Date End Date Nadir Grady MD [address] [facility] [place] [address] PCP - General Family Medicine 08/04/15 [facility] [address] [facility] [place] [address] Pharmacist Pharmacy 10/20/20 09/30/23 Feliz, Karen, [facility] [address] [facility] [place] [address] Pharmacist Pharmacy 03/15/21 Yolanda Vargas PA-C [address] [facility] [place] [address] Referring Pulmonary and Critical Care Medicine 02/07/22 Core Cutter And Reamer Relationship Specialty Start Date End Date Nadir Grady MD [address] [facility] [place] [address] PCP - General Family Medicine 08/04/15 [facility] [address] [facility] [place] [address] Pharmacist Pharmacy 10/20/20 09/30/23 [facility] [address] [facility] [place] [address] Pharmacist Pharmacy 03/15/21 Core Cutter And Reamer Relationship Specialty Start Date End Date Nadir Grady MD [address] [facility] [place] [address] PCP - General Family Medicine 08/04/15 Core Cutter And Reamer Relationship Specialty Start Date End Date Nadir Grady MD [address] [facility] [place] [address] PCP - General Family Medicine 08/04/15 Core Cutter And Reamer Relationship Specialty Start Date End Date Nadir Grady MD [address] [facility] [place] [address] PCP - General Family Medicine 08/04/15 [facility] [address] [facility] [place] [address] Pharmacist Pharmacy 03/15/21 Yolanda Vargas PA-C [address] [facility] [place] [address] Referring Pulmonary and Critical Care Medicine 02/07/22 Core Cutter And Reamer Relationship Specialty Start Date End Date Nadir Grady MD [address] [facility] [place] [address] PCP - General Family Medicine 08/04/15 [facility] [address] [place] [address] Pharmacist Pharmacy 03/15/21 Yolanda Vargas PA-C [address] [place] [address] Referring Pulmonary and Critical Care Medicine 02/07/22 Core Cutter And Reamer Relationship Specialty Start Date End Date Nadir Grady MD [address] [place] [address] PCP - General Family Medicine 08/04/15 Karen Piper, [facility] [address] [place] [address] Pharmacist Pharmacy 03/15/21 Yolanda Vargas PA-C [address] [place] [address] Referring Pulmonary and Critical Care Medicine 02/07/22 Core Cutter And Reamer Relationship Specialty Start Date End Date Nadir Grady MD [address] [place] [address] PCP - General Family Medicine 08/04/15 [facility] [address] [place] [address] Pharmacist Pharmacy 03/15/21 Yolanda Vargas PA-C [address] [place] [address] Referring Pulmonary and Critical Care Medicine 02/07/22 Core Cutter And Reamer Relationship Specialty Start Date End Date Nadir Grady MD [address] [place] [address] PCP - General Family Medicine 08/04/15 Karen Piper, [facility] [address] [facility] [place] [address] Pharmacist Pharmacy 03/15/21 Yolanda Vargas PA-C [address] [facility] [place] [address] Referring Pulmonary and Critical Care Medicine 02/07/22 Core Cutter And Reamer Relationship Specialty Start Date End Date Nadir Grady MD [address] [facility] [place] [address] PCP - General Family Medicine 08/04/15 LavelleKaren florCr[facility] [address] [facility] [place] [address] Pharmacist Pharmacy 03/15/21 Yolanda Vargas PA-C [address] [facility] [place] [address] Referring Pulmonary and Critical Care Medicine 02/07/22 rFanny Catalan APRN.THERMITE BOMB LOADER [address] [place] [address] Family Service Center Director Family Medicine 08/07/24 Martha Boston PA-C [address] [facility] [place] [address] Family Service Center Director Family Medicine 08/07/24 Core Cutter And Reamer Relationship Specialty Start Date End Date Nadir Grady MD [address] [facility] [place] [address] PCP - General Family Medicine 08/04/15 LavelleKaren flor, [facility] [address] [facility] [place] [address] Pharmacist Pharmacy 03/15/21 Yolanda Vargas PA-C [address] [facility] [place] [address] Referring Pulmonary and Critical Care Medicine 02/07/22 Franny Catalan, DATAPOWER DEVELOPER.THERMITE BOMB LOADER [address] [place] [address] Family Service Center Director Family Medicine 08/07/24 Martha Boston PA-C [address] [facility] [place] [address] Family Service Center Director Family Medicine 08/07/24 Core Cutter And Reamer Relationship Specialty Start Date End Date Nadir Grady MD [address] [facility] [place] [address] PCP - General Family Medicine 08/04/15 LavelleKaren florCr[facility] [address] [facility] [place] [address] Pharmacist Pharmacy 03/15/21 Yolanda Vargas PA-C [address] [facility] [place] [address] Referring Pulmonary and Critical Care Medicine 02/07/22 Franny Catalan, DATAPOWER DEVELOPER.THERMITE BOMB LOADER [address] [place] [address] Family Service Center Director Family Medicine 08/07/24 Martha Boston PA-C [address] [facility] [place] [address] Family Service Center Director Family [facility] 08/07/24 Core Cutter And Reamer Relationship Specialty Start Date End Date Nadir Grady MD [address] [facility] [place] [address] PCP - General Family Medicine 08/04/15 FelizKaren [facility]Cr[facility] [address] [facility] [place] [address] Pharmacist Pharmacy 03/15/21 Yolanda Vargas PA-C [address] [facility] [place] [address] Referring Pulmonary and Critical Care Medicine 02/07/22 Franny Catalan, COLLETTE.THERMITE BOMB LOADER [address] [place] [address] Family Service Center Director Family Medicine 08/07/24 Martha Boston PA-C [address] [facility] [place] [address] Family Service Center Director Family [facility] 08/07/24 Core Cutter And Reamer Relationship Specialty Start Date End Date Nadir Grady MD [address] [facility] [place] [address] PCP - General Family Medicine 08/04/15 Karen Piper [facility] [address] [facility] [place] [address] Pharmacist Pharmacy 03/15/21 Yolanda Vargas PA-C [address] [facility] [place] [address] Referring Pulmonary and Critical Care Medicine 02/07/22 Franny Catalan, COLLETTE.THERMITE BOMB LOADER [address] [place] [address] Family Service Center Director Family [facility] 08/07/24 Martha Boston PA-C [address] [facility] [place] [address] [facility] 08/07/24 Core Cutter And Reamer Relationship Specialty Start Date End Date Nadir Grady MD [address] [facility] [place] [address] PCP - General Family Medicine 08/04/15 LavelleKaren, [facility] [address] [facility] [place] [address] Pharmacist Pharmacy 03/15/21 Yolanda Vargas PA-C [address] [facility] [place] [address] Referring Pulmonary and Critical Care Medicine 02/07/22 Franny Catalan APRN.THERMITE BOMB LOADER [address] [place] [address] Family Service Center Director Family Medicine 08/07/24 Martha Boston PA-C [address] [facility] [place] [address] Family Service Center Director Family Medicine 08/07/24 Core Cutter And Reamer Relationship Specialty Start Date End Date Nadir Grady MD [address] [facility] [place] [address] PCP - General Family Medicine 08/04/15 Lavelle Karen, [facility] [address] [facility] [place] [address] Pharmacist Pharmacy 03/15/21 Yolanda Vargas PA-C [address] [facility] [place] [address] Referring Pulmonary and Critical Care Medicine 02/07/22 Franny Catalan APRN.THERMITE BOMB LOADER [address] [place] [address] Family Service Center Director Family Medicine 08/07/24 Martha Boston PA-C [address] [facility] [place] [address] Family Service Center Director Family Medicine 08/07/24 Core Cutter And Reamer Relationship Specialty Start Date End Date Nadir Grady MD [address] [facility] [place] [address] PCP - General Family Medicine 08/04/15 FelizKaren [facility]Cr[facility] [address] [facility] [place] [address] Pharmacist Pharmacy 03/15/21 Yolanda Dean PA-C [address] [facility] [place] [address] Referring Pulmonary and Critical Care Medicine 02/07/22 Franny Catalan APRN.THERMITE BOMB LOADER [address] [place] [address] Family Service Center Director Family [facility] 08/07/24 Martha Boston PA-C [address] [facility] [place] [address] [facility] 08/07/24 Core Cutter And Reamer Relationship Specialty Start Date End Date Nadir Grady MD [address] [facility] [place] [address] PCP - General Family Medicine 08/04/15 FelizKaren [facility]Cr[facility] [address] [place] [address] Pharmacist Pharmacy 03/15/21 Yolanda Dean PA-C [address] [place] [address] Referring Pulmonary and Critical Care Medicine 02/07/22 Franny Catalan APRN.THERMITE BOMB LOADER [address] [place] [address] Family Service Center Director Family Medicine 08/07/24 Martha Boston PA-C [address] [facility] [place] [address] Family Service Center Director [facility] 08/07/24 Core Cutter And Reamer Relationship Specialty Start Date End Date Nadir Grady MD [address] [facility] [place] [address] PCP - General Family Medicine 08/04/15 Karen Piper, [facility] [address] [facility] [place] [address] Pharmacist Pharmacy 03/15/21 Yolanda Dean PA-C [address] [facility] [place] [address] Referring Pulmonary and Critical Care Medicine 02/07/22 Franny Catalan APRN.THERMITE BOMB LOADER [address] [place] [address], [place] [address] Family Service Center Director [facility] 08/07/24 Martha Boston PA-C [address] [facility] [place] [address] Family Service Center Director [facility] 08/07/24 Core Cutter And Reamer Relationship Specialty Start Date End Date Nadir Grady MD [address] [facility] [place] [address] PCP - General Family Medicine 08/04/15 Karen Piper, [facility] [address] [facility] [place] [address] Pharmacist Pharmacy 03/15/21 Yolanda Dean PA-C [address] [facility] [place] [address] Referring Pulmonary and Critical Care Medicine 02/07/22 Franny Catalan APRN.THERMITE BOMB LOADER [address] [place] [address] [facility] 08/07/24 Martha Boston PA-C [address] [place] [address] [facility] 08/07/24 Team Status: Active Member Role Status Dates Dr. Nadir Grady MD Primary Care Provider Active Team Status: Inactive Member Role Status Dates Dr. Nadir Grady MD Primary Care Provider Active Start: July 28, 2024 End: July 28, 2024 Dr. Nadir Grady MD Referring Provider Active Start: July 28, 2024 End: July 28, 2024 CAMELIA Aquino Attending Provider Active Start: July 28, 2024 End: July 28, 2024 Team Status: Inactive Member Role Status Dates Dr. Nadir Grady MD Primary Care Provider Active Start: July 28, 2024 End: July 28, 2024 CAMELIA Aquino Attending Provider Active Start: July 28, 2024 End: July 28, 2024 CAMELIA Aquino Referring Provider Active Start: July 28, 2024 [...] 08, 2024 End: September 08, 2024 Yolanda DENISE, PA Attending Provider Active Start: September 08, 2024 End: September 08, 2024 Team Status: Inactive Member Role Status Dates Dr. Nadir Grady MD Primary Care Provider Active Start: September 20, 2024 End: September 20, 2024 Dr. Hany Paz MD Attending Provider Active Start: September [...] 2024 End: November 09, 2024 Molly Houser METAL FLOORING INSTALLER, METAL FLOORING INSTALLER-C Attending Provider Active Start: November 09, 2024 End: November 09, 2024 Molly Houser Referring Provider Active Start: November 09, 2024 End: November 09, 2024 Team Status: Inactive Member Role Status Dates Dr. Nadir Grady MD Primary Care Provider Active Start: December 08, 2024 End: December 08, 2024 Dr. Nadir Grady MD Referring Provider Active Start: December 08, 2024 End: December 08, 2024 Yolanda Dean PA, PA Attending Provider Active Start: December 08, 2024 End: December 08, 2024 Team Status: Inactive Member Role Status Dates Dr. Nadir Grady MD Primary Care Provider Active Start: December 08, 2024 End: December 08, 2024 CAMELIA Aquino Attending Provider Active Start: December 08, 2024 End: December 08, 2024 CAMELIA Aquino Referring Provider Active Start: December 08, 2024 End: December 08, 2024 Core Cutter And Reamer Relationship Specialty Start Date End Date Nadir Grady MD [address] [place] [address] PCP - General Family Medicine 12/06/24 [facility]Karen [facility]Cr[facility] [address] [place] [address] Pharmacist Pharmacy 03/15/21 Yolanda Dean PA-C [address] [place] [id number] Referring Pulmonary and Critical Care Medicine 02/07/22 Franny Catalan APRN.CNP [address] [place] [address] Family Service Center Director Family [facility] 08/07/24 Martha Boston PA-C [address] [place] [address] Family Service Center Director Family [facility] 08/07/24 Core Cutter And Reamer Relationship Specialty Start Date End Date Nadir Grady MD [address] [place], [place] [address] PCP - General Family Medicine 12/06/24 [facility] [facility] [address] [place] [address] Pharmacist Pharmacy 03/15/21 Yolanda Dena PA-C [address] [place] [address] [phone] Referring Pulmonary and Critical Care Medicine 02/07/22 Franny Catalan APRN.CNP [address] [place] [address] [phone] [facility] 08/07/24 Martha Bsoton PA-C [address] [place] [address] [phone] [facility] 08/07/24 Team Status: Inactive Member Role Status [...] Provider Active S tart: December 23, 2024 Core Cutter And Reamer Relationship Specialty Start Date End Date Nadir Grady MD [address] [place] [address] [id number] PCP - General Family Medicine 12/06/24 Karen Piper [facility] [address] [place] [address] Pharmacist Pharmacy 03/15/21 Yolanda Dean PA-C [address] [place] [address] [id number] Referring Pulmonary and Critical Care Medicine 02/07/22 Martha Boston PA-C [address] [place] [address] [phone] [facility] Director Family [facility] 08/07/24 Team Status: Active Member Role Status [...] February 22, 2025 End: February 22, 2025 Core Cutter And Reamer Relationship Specialty Start Date End Date Nadir Grady MD [address] [place] [address] [id number] PCP - General Family Medicine 12/06/24 Karen Piper RP [address] [place], [place] 720381 Pharmacist Pharmacy 03/15/21 Yolanda Dean PA-C [address] [place] [address] [phone] Referring Pulmonary and Critical Care Medicine 02/07/22 Franny Catalan APRN.CNP [address] [place] [phone] [phone] [facility] Family Medicine 01/31/25 Martha Boston PA-C [address] [place] [address] [id number] [facility] 01/31/25 Core Cutter And Reamer Relationship Specialty Start Date End Date Nadir Grady MD [address] [place] [address] PCP - General Family Medicine 12/06/24 [facility] [address] [place] [address] Pharmacist Pharmacy 03/15/21 Yolanda Dean PA-C [address] [place] [address] Referring Pulmonary and Critical Care Medicine 02/07/22 Franny Catalan APRN.THERMITE BOMB LOADER [address] [place] [phone] [facility] Director Family Medicine 01/31/25 Martha Boston PA-C [address] [place] [address] [id number] [facility] Director Family Medicine 01/31/25 Core Cutter And Reamer Relationship Specialty Start Date End Date Nadir Grady MD [address] [place] [address] PCP - General Family Medicine 12/06/24 [facility] [address] [place] [address] Pharmacist Pharmacy 03/15/21 Yolanda Dean PA-C [address] [place] [address] Referring Pulmonary and Critical Care Medicine 02/07/22 Franny Catalan APRN.THERMITE BOMB LOADER [address] [place] [address] Family Service Center Director Family Medicine 01/31/25 Martha Boston PA-C [address] [place] [address] [facility] 01/31/25 Team Status: Active Member Role/Relationship Status Dates Dr. Nadir Grady MD Primary Care Provider Active Team Status: Inactive Member Role/Relationship Status Dates Dr. Nadir Grady MD Primary Care Provider Active Start: November 09, 2024 End: November 09, 2024 Molly Houser METAL FLOORING INSTALLER, METAL FLOORING INSTALLER-C Attending Provider Active Start: November 09, 2024 [...] March 05, 2025 End: March 05, 2025 Team Status: Inactive Member Role/Relationship Status [...] 08, 2024 End: December 08, 2024 Yolanda DENISE, PA Attending Provider Active Start: December 08, 2024 End: December 08, 2024 Yolanda DENISE, PA Referring Provider Active Start: December 08, 2024 End: December 08, 2024 Team Status: Inactive Member Role/Relationship Status Dates Dr. Nadir Grady MD Primary Care Provider Active Start: December 23, 2024 End: December 23, 2024 Yolanda Dean PA, PA Attending Provider Active Start: December 23, 2024 End: December 23, 2024 Yolanda Dean PA, PA Referring Provider Active Start: December 23, [...] March 05, 2025 Dr. Pop Shah MD Attending Provider Active Start: March 05, 2025 End: March 05, 2025 Dr. Pop Shah MD Emergency Provider Active Start: March 05, 2025 End: March 05, 2025 Team Status: Inactive Member Role/Relationship Status Dates Dr. Nadir Grady MD Primary Care Provider Active Start: March 10, 2025 End: March 10, 2025 CAMELIA Aquino Attending Provider Active Start: March 10, 2025 End: March 10, 2025 CAMELIA Aquino Referring Provider Active Start: March 10, 2025 End: March 10, 2025 Goals (unrecognized section and content) Goals [...] BE BASED ON THE PRIMARY CLINICAL RECORDS. At [facility]. provides no warranty or guarantee of the accuracy or completeness of information in this document.
--- NOTE | 2025-03-25 06:09 | CT_ITS ---
PROCEDURE: CTA HEAD AND NECK W/ CONTRAST 03/25/2025 REASON FOR EXAM: MODERATE CAROTID STENOSIS, SYNCOPE, DIZZINESS. TECHNIQUE: CTA HEAD AND NECK W/ CONTRAST Multiplanar Sagittal and Coronal images were obtained. Three-dimensional reconstructions CONTRAST: Isovue 370 VOLUME: 97 cc mL One or more dose reduction techniques were used (e.g., Automated exposure control, adjustment of the mA and/or kV according to patient size, use of iterative reconstruction technique). RADIATION DOSE SUMMARY: CTDlvol: 81 mGy DLP: 1549 mGycm FINDINGS: Initial noncontrast CT of the brain is unremarkable. Normal aortic arch caliber. Negative for common carotid stenosis. Calcified plaque at each carotid bifurcation. On the left, there is a 60% proximal left ICA stenosis. On the right, non hemodynamically significant narrowing seen. Normal caliber distal internal carotid vessels. Normal petrous, precavernous and paraclinoid internal carotid arteries. Normal right M1, left M1 and bilateral M2 branches. Bilateral A1 and A2 segments are maintained. There is no dural sinus thrombosis. Cervical vertebral arteries demonstrate no dissection or occlusion. No proximal subclavian stenosis. Mild calcified plaque in the mid left vertebral artery. Normal basilar artery without basilar tip stenosis. 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 No soft tissue masses are identified in the neck. CT/CTA Head AND Neck W/ Contrast IMPRESSION: 60% stenosis proximal left ICA. Nonsignificant narrowing on the right. Reading [facility] [place]
== END | disposition home or self-care (01) ==
LOC: CT 05:36
PROVIDERS: PCP Family Medicine; Referring Provider Physician Assistant Medical; Visit Provider Physician Assistant Medical
DX: I65.23 Occlusion and stenosis of bilateral carotid arteries (principal); R42 Dizziness and giddiness; R55 Syncope and collapse
CPT/HCPCS: 70496; 70498; Q9967